=== PATIENT | male | born 1960 | race Caucasian/White ===

== ENCOUNTER 2017-10-27 17:28 | Inpatient (IN) | payer MEDICARE, MEDICAID, SELFPAY ==
[2017-10-27] VITALS (34 sets, daily range): BP systolic 113–203; BP diastolic 53–154; PULSE 94–114; RESP 20–38; TEMP 38.6–39.7; O2SAT 93–98
--- NOTE | 2017-10-27 17:37 | DI.RAD_ITS ---
SYMPTOM/DIAGNOSIS: FEVER AND COUGH PORTABLE AP CHEST: 10/27/17 1755 HOURS The heart is enlarged. There is some prominence of pulmonary interstitial markings which is nonspecific. The findings are less prominent than on previous chest film of 05/23/2016. The findings could represent interstitial pneumonia vs mild CHF. Appropriate follow up PA and lateral chest suggested.
[2017-10-27] MEDS: Normal Saline 500 ML IV (17:50)
--- NOTE | 2017-10-27 18:05 | W.ED.GENAD ---
Discharge Plan Discharge Details Chief Complaint: Cellulitis Clinical Impression: Sepsis Primary Care Provider: Anne Horowitz ED Provider: Hemanth Olivia Disposition Patient Disposition: [facility] INPATIENT Home Meds and New Rx's Prescriptions: No Action risperidone [Risperdal] 3 MG tablet 3 mg PO HS Qty: 90 RF: 3 levothyroxine 50 MCG tablet 50 mcg PO DAILY Qty: 90 RF: 3 folic acid 1 MG tablet 1 mg PO DAILY Qty: 90 RF: 3 omeprazole 20 MG capsule,delayed release(DR/EC) 20 mg PO DAILY Qty: 90 RF: 3 lancets [FreeStyle Lancets] 1 EACH misc 1 ea Miscellaneous RF: 0 furosemide 40 MG tablet 40 mg PO QAM Qty: 7 RF: 0 blood sugar diagnostic [FreeStyle Lite Strips] 1 EACH strip 1 ea Miscellaneous TID Qty: 100 RF: 11 omega-3 acid ethyl esters [Lovaza] 1 GM capsule 1 gm PO BID Qty: 180 RF: 3 cyanocobalamin (vitamin B-12) [Vitamin B-12] 1,000 MCG tablet extended release 1,000 mcg PO DAILY Qty: 90 RF: 0 adalimumab [Humira Pen Psoriasis-Uveitis] 40 MG/0.8 ML pen injector kit 40 mg SQ Q 2 Weeks Qty: 2 RF: 11 pen needle, diabetic [Pen Needle] 1 EACH needle 1 ea Miscellaneous DAILY Qty: 100 RF: 5 ergocalciferol (vitamin D2) [Drisdol] 50,000 UNIT capsule 50,000 units PO DIRECTED RF: 0 multivitamin with minerals 1 EACH tablet 1 ea PO DAILY RF: 0 oxycodone-acetaminophen 1 EACH tablet 1 - 2 ea PO Q4H PRN Qty: 50 RF: 0 fentanyl [Duragesic] 1 EACH patch 72 hour 1 ea Transdermal Q72H Qty: 10 RF: 0 prednisone 5 MG tablet 20 mg PO DAILY Qty: 30 RF: 0 liraglutide [Victoza 3-Saleem] 0.6 MG/0.1 ML pen injector 1.8 mg Sub-Q DAILY RF: 0 lisinopril 5 MG tablet 20 mg PO DAILY RF: 0 acetaminophen 500 MG tablet 1,000 mg PO BID RF: 0 gabapentin 800 MG tablet 800 mg PO TID RF: 0 sertraline 50 MG tablet 50 mg PO 2000 RF: 0 thymol-chlorophyllin [Chlorophyll] 1 EACH tablet 3 mg PO TID RF: 0 carboxymethylcellulose-glycern [Refresh Optive] 15 ML drops 1 drp Ophthalmic BID RF: 0 kwpu-kndebo-fuhhnhlr-D3-C-Mn [Mognbjieoph-Ccpfaf-O9 (C-elton)] 1 EACH capsule 1 tab PO TID RF: 0 naproxen sodium 220 MG capsule 440 mg PO BID RF: 0 insulin glargine [Lantus Solostar U-100 Insulin] 300 UNITS/3 ML insulin pen 80 units Sub-Q BID RF: 0 oxybutynin chloride [Ditropan XL] 15 MG tablet extended release 24hr 15 mg PO DAILY RF: 0 insulin aspart U-100 [Novolog U-100 Insulin aspart] 100 UNITS/ML solution 25 - 50 units Sub-Q AC RF: 0 potassium chloride [Klor-Con M10] 10 MEQ tablet,ER particles/crystals 20 meq PO DAILY RF: 0 venlafaxine 75 MG capsule,extended release 24hr 75 mg PO DAILY RF: 0 amoxicillin-pot clavulanate 1 TAB tablet 1 tab PO BID Qty: 15 RF: 0 acetaminophen 325 MG tablet 650 mg PO Q4H PRNRF: 0 hydroxyzine HCl 50 MG tablet 50 mg PO QID PRNRF: 0 oxycodone 10 MG tablet 10 mg PO Q4H RF: 0 dextran 70-hypromellose [Natural Balance Tears] 15 ML drops 1 drp OU TID PRNRF: 0 amlodipine 5 MG tablet 5 mg PO DAILY RF: 0 nortriptyline 25 MG capsule 25 mg PO HS RF: 0 potassium chloride 10 mEq Capsule, Extended Release 2 cap PO DAILY RF: 0 carbamazepine [Tegretol] 200 mg Tablet 100 mg PO BID RF: 0 metoprolol succinate 25 mg Tablet Extended Release 24 Hr 25 mg PO DAILY RF: 0 melatonin 10 mg Capsule 10 mg PO .QHS RF: 0 Medical Decision Making [facility] Narrative Medical decision making narrative: 57 yo male who is a resident at the [facility] with multiple medical problems comes in with chief complaint of chills and fever starting today. HE has also noted a cough, denies headachen, neck stiffness, abdominal pain. Does have redness and erythema of both lower extremities but he thinks those are unchanged. He has diminished breath sounds bilaterally. Given his fever here will send lab work and cultures and obtain UA and chest xray and monitor pt remains stable, feel slightly better in terms of his chills. Xray on my read shows mild diffuse interistal pneumonitis, awaiting lab work PT remains stable with mild tachycardia at 110. WBC of 25 and mild elevation in lactate of 2.3. His UA has bacteria, given his cough will cover for uti and possible pna with zosyn, and admit to hospitalist. SPoke with Dr. Rodriguez who accepts the pt, asks fluids to be running as well so this ordered. Differential Diagnosis pna, uti, sepsis Imaging Data Radiologic Study: Attestation: I personally reviewed and interpreted this imaging study as follows: Imaging: X-Ray Radiologist's impression: vrad report reviewed Lab Data Lab results reviewed: Yes I reviewed the patient's lab results. ECG Data Attestation: I personally reviewed and interpreted this ECG (s) as follows: Prior ECG tracings: available for review Interpretation: left axis, atrial fibrillation, no acute ischemic st t wave changes HPI - General Adult General Mode of arrival: EMS. Date/Time Provider Initiated Documentation: 10/27/17 17:31. Limitations to Documentation: no limitations. Information obtained by: patient. History of Present Illness 57 year old M presents to the emergency department with the chief complaint of chills, described as moderate, with intensity rated at 4. Patient reports no radiation. Patient started experiencing this hour(s) (12) and it has been constant. No relieving factors improve symptom(s), No exacerbating factors reported . Patient notes cough. Patient did receive the following treatments prior to arrival, none Related Data Home Medications Medication Instructions Recorded Confirmed lancets [FreeStyle Lancets] ea 05/01/12 06/21/13 ergocalciferol (vitamin D2) 50,000 units PO DIRECTED NS 04/21/14 10/27/17 [Drisdol] multivitamin with minerals 1 ea PO DAILY 04/21/14 10/27/17 acetaminophen 1,000 mg PO BID 10/19/15 10/27/17 carboxymethylcellulose-glycern 1 drp OPHTHALMIC BID 10/19/15 10/27/17 [Refresh Optive] gabapentin 800 mg PO TID 10/19/15 10/27/17 fhgs-woxlok-twedpugl-D3-C-Mn 1 tab PO TID 10/19/15 10/27/17 [Ymcscdbssgv-Rabxeh-K8 (C-elton)] insulin glargine [Lantus Solostar 80 units SUB-Q BID 10/19/15 10/27/17 U-100 Insulin] liraglutide [Victoza 3-Saleem] 1.8 mg SUB-Q DAILY 10/19/15 10/27/17 lisinopril 20 mg PO DAILY 10/19/15 10/27/17 naproxen sodium 440 mg PO BID 10/19/15 10/27/17 sertraline 50 mg PO 2000 10/19/15 10/27/17 thymol-chlorophyllin [Chlorophyll] 3 mg PO TID 10/19/15 10/27/17 insulin aspart U-100 [Novolog 25 - 50 units SUB-Q AC 10/20/15 10/27/17 U-100 Insulin aspart] oxybutynin chloride [Ditropan XL] 15 mg PO DAILY 10/20/15 10/27/17 venlafaxine 75 mg PO DAILY 01/08/16 10/27/17 acetaminophen 650 mg PO Q4H PRN 07/08/17 10/27/17 amlodipine 5 mg PO DAILY 07/08/17 10/27/17 dextran 70-hypromellose [Natural 1 drp OU TID PRN 07/08/17 10/27/17 Balance Tears] hydroxyzine HCl 50 mg PO QID PRN 07/08/17 10/27/17 nortriptyline 25 mg PO HS 07/08/17 10/27/17 oxycodone 10 mg PO Q4H 07/08/17 10/27/17 carbamazepine [Tegretol] 100 mg PO BID 10/27/17 10/27/17 melatonin 10 mg PO .QHS 10/27/17 10/27/17 metoprolol succinate 25 mg PO DAILY 10/27/17 10/27/17 potassium chloride 2 cap PO DAILY 10/27/17 10/27/17 Previous Rx's Medication Instructions Recorded prednisone 20 mg PO DAILY #30 tab 06/24/13 potassium chloride [Klor-Con M10] 20 meq PO DAILY tabcr 10/26/15 amoxicillin-pot clavulanate 1 tab PO BID #15 tab 05/26/16 Allergies Allergy/AdvReac Type Severity Reaction Status Date / Time No Known Allergies Allergy Unverified 07/08/17 09:14 General Stated Complaint: GenMedical YVES: 2 Review of Systems Review of Systems All systems reviewed & are unremarkable except as noted in HPI and below Constitutional Reports chills, Reports fever(s) and Reports weakness Eyes Patient Denies loss of vision ENT Denies change in voice Cardiovascular Denies chest pain and Denies dyspnea Respiratory Denies dyspnea Gastrointestinal Denies abdominal pain, Denies nausea and Denies vomiting Genitourinary Denies dysuria Musculoskeletal Denies joint swelling Integumentary/Breasts Denies rash Neurologic Denies loss of vision and Reports weakness Psychiatric Denies depression Endocrine Denies cold intolerance and Denies heat intolerance Allergic/Immunologic Reports urticaria PFSH Medical History Bipolar 1 disorder CAD (coronary artery disease) Chronic anxiety Chronic pain 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 Dyslipidemia Hypertension Social History Smoking/Tobacco Use Status: Never Surgical History Arthroplasty of knee (03/18/12) Fracture, Open Treatment Exam Const General: no acute distress Orientation: alert HENAK Head: normal to inspection Ears: external ears normal General nose exam: external nose normal Mouth: moist mucous membranes Eyes General: appearance normal, both eyes and all related structures Neck Neck: normal visual inspection Resp Effort & Inspection: normal respiratory effort and able to speak in complete sentences Cardio Rate: regular rate Skin General skin exam: no rashes or lesions noted Neuro General: alert and oriented x3 Extrem General: normal to inspection Psych Mental Status: mental status grossly normal Course Vital Signs Temperature 38.6 C H 10/27/17 17:28 Pulse 110 H 10/27/17 17:28 Respiratory Rate 32 H 10/27/17 17:28 Pulse Oximetry 96 10/27/17 17:28 Temperature 38.6 C H 10/27/17 17:28 Pulse 110 H 10/27/17 17:28 Respiratory Rate 32 H 10/27/17 17:28 Pulse Oximetry 96 10/27/17 17:28
[2017-10-27 18:16] LABS: Bilirubin Negative (Negative); Blood Small (Negative); Clarity Clear; Glucose Negative (Negative); Ketones Negative (Negative); Leukocyte Esterase Trace (Negative); Nitrite Negative (Negative); Urobilinogen 0.2 EU/dL (Up TO 0.2); pH 5.5 (5-8)
[2017-10-27 18:27] LABS: Lactate-non-spesis 2.3 mmol/L (0.6-1.4)
[2017-10-27 18:33] LABS: Bacteria Moderate HPF (Negative); C & S Indicated? Yes; Casts 0-2 Coarse Granular LPF (Negative); Crystals Negative HPF (Negative); Epithelial Cells Few HPF (Negative); Mucus Negative (Negative); Other Cells Few Transitional (Negative); WBC 20-50 HPF (0-5)
[2017-10-27 18:34] LABS: Abs Immature Grans 0.08 k/cumm (0.0-0.09); Basophils % 0.2; Eosinophils % 1.1; HGB 9.1 g/dL (13.5-17.5); Immature Grans % 0.3; Lymphocytes % 5.5; Mean Corp. HGB Concentration 29.4 g/dL (32.0-36.0); Mean Corpuscular Hemoglobin 19.7 pg (27.0-33.0); Mean Corpuscular Volume 67.1 fL (80-95); Mean Platelet Volume 10.3 fL (8.0-11.0); Monocytes % 2.7; Neutrophils % 90.2; Platelet Count 560 x1000/uL (130-400); RBC 4.62 m/cumm (4.50-6.00); RBC Distribution Width 18.8 % (11.8-14.1)
[2017-10-27 18:41] LABS: INR 1.1 (1.0-3.5); Prothrombin Time 10.9 sec (9.3-10.8)
[2017-10-27 18:46] LABS: ALT 18 U/L (12-78); AST 14 U/L (15-37); Albumin 2.4 g/dL (3.4-5.0); Alkaline Phosphatase 338 U/L (46-116); Anion Gap 6.2 mmol/L (3-11); BUN 33 mg/dL (7-18); Bilirubin, Total 0.3 mg/dL (0.2-1.0); CO2 26.8 mmol/L (21.0-32.0); CREATININE 1.78 mg/dL (0.70-1.30); Calcium 8.3 mg/dL (8.5-10.1); Chloride 110 mmol/L (98-107); Estimated GFR 39.45 (mL/min/1.73m2); Glucose 102 mg/dL (70-100); Potassium 4.9 mmol/L (3.5-5.1); Sodium 143 mmol/L (136-145); Total Protein 7.3 g/dL (6.4-8.2)
[2017-10-27 18:53] LABS: Absolute Basophil Count 0.05 k/cumm (0.0-0.2); Absolute Eosinophil Count 0.28 k/cumm (0.0-0.7); Absolute Monocyte Count 0.69 k/cumm (0.11-0.7); Absolute Neutrophil Count 22.91 k/cumm (1.2-6.7)
[2017-10-27 19:08] LABS: Diff Comment Agrees w/ Instrument
[2017-10-27 19:09] LABS: Anisocytosis 1+; Basophilic Stippling Present; Hypochromasia 2+
[2017-10-27] MEDS: Normal Saline 1,000 ML 150 ML IV ×2 (19:10→22:31)
[2017-10-27 19:11] LABS: Polychromasia Present
[2017-10-27] MEDS: PIPERACILLIN/TAZO 4.5 GM in Normal Saline 100 ML IVPB (19:11)
[2017-10-27] MEDS: Acetaminophen 500 MG TAB 1000 MG (19:11)
[2017-10-27 19:12] LABS: Poikilocytes 2+
[2017-10-27] MEDS: VANCOMYCIN 2,000 MG in Normal Saline 500 ML 250 MG IVPB (20:14)
[2017-10-27] MEDS: Melatonin 3 MG TAB 9 MG PO (21:59)
[2017-10-27] MEDS: risperiDONE 1 MG TAB 3 MG PO (21:59)
[2017-10-27] MEDS: oxyCODONE 10 MG TAB PO (22:41)
[2017-10-27] MEDS: Acetaminophen 325 MG TAB PO (23:44)
[2017-10-28] VITALS (58 sets, daily range): BP systolic 80–188; BP diastolic 30–94; PULSE 60–90; RESP 12–43; TEMP 36.2–39.4; O2SAT 90–100
[2017-10-28] MEDS: PIPERACILLIN/TAZO 4.5 GM in Normal Saline 100 ML IVPB (02:43)
[2017-10-28] MEDS: Normal Saline 500 ML IV (03:39)
[2017-10-28] MEDS: methylPREDNISolone SUCC 125 MG VIAL 80 MG IVP ×3 (04:22→20:06)
[2017-10-28] MEDS: Normal Saline Flush 10 ML SYR (04:31)
--- NOTE | 2017-10-28 04:37 | HPE_ITS ---
Date of service: 10/28/17 Time of Service: 04:19 Assessment and Plan (1) Cellulitis: Start date: 10/27/17 Current visit: Yes Status: Acute Severe cellulitis of the right leg. He has chronic lower extremity edema. He scratches at both legs regularly as evidenced by the linear scratches on both thighs. I suspect this is the nidus of the infection. Given [facility] a [facility] facility there is a high suspicion for MRSA though a polymicrobial infection is possible. Will continue with broad spectrum antibiotics, Zosyn and vancomycin. Blood cultures are pending. (2) Pedal edema: Current visit: No Status: Chronic Chronic lower extremity edema. Will aim to try to keep his legs elevated as much as possible. This places him at increased risk of infection in his legs. (3) Anxiety: Current visit: No Status: Chronic Chronic anxiety. Will continue present meds including venlafaxine Problem details: On Venlafaxine (4) Diabetes mellitus type 2, controlled: Current visit: No Status: Chronic Monitor blood sugars. Sliding scale insulin. Problem details: *Poorly Controlled a. Diabetic foot ulcers. b. Osteomyelitis in December 2012. c. Diabetic nephropathy with chronic renal insufficiency. (5) Hypertension: Current visit: No Status: Chronic Blood pressures were initially high on presentation but have dropped precipitously. Will hold blood pressure medicines until fully fluid resuscitated (6) Chronic pain: Current visit: No Status: Chronic Will hold on his scheduled oxycodone and fentanyl patch for now. Will provide morphine on an as-needed basis. Problem details: On both Methadone and Fentanyl as well as Ultram and Naproxen. (7) Obesity: Current visit: No Status: Chronic His obesity presents a management issue but thus far he is cooperative and we have been able to move him. He does not currently have active decubital ulceration. Problem details: a. Obesity though he has had significant weight loss since last seen. (8) CAD (coronary artery disease): Current visit: No Status: Chronic Is not complaining of any chest pain. Will check EKG though we do not suspect an acute coronary syndrome at this time. (9) Rheumatoid arthritis: Current visit: No Status: Chronic Holding on his Biologics given his likely bacterial illness. He is steroid dependent and now in crisis. Will give Solu-Medrol IV and resume oral prednisone once stable. (10) Crohns disease: Current visit: No Status: Chronic Ostomy appears to be functioning well, greenish liquid present. Will provide diabetic regular diet as tolerated. Problem details: a. S/P total colectomy. (11) Osteoarthritis of both knees: Current visit: No Status: Chronic He is nearly completely immobile from his arthritis. We will involve physical therapy once stable. Problem details: Severe. a. [id number] bilateral knees. (12) Sacral decubitus ulcer: Current visit: No Status: Acute This appears to be stable. Will try to turn and keep pressure off the decubital area. History of Present Illness Chief Complaint: Sepsis syndrome/right leg cellulitis Narrative: This is a 57-year-old man that resides at the [facility] because of severe disability from arthritis. He was apparently in his normal state of health until a few hours prior to admission when he developed a high fever, chills, rigors. His temp mark to 38.6 pulse was in the 120s blood pressure 170/ 58. He was transported to the emergency room. In the emergency room he appeared to be septic with high fever and white count of 25,000 but his lactate was only 2.3 He got IV fluids and empirically started on Zosyn and vancomycin. He was transferred to the [facility] floor. A few hours later blood pressure dropped from 170/58 to 80/40, respirations were 40. He was transferred to the ICU, Downing catheter placed, started on IV Solu-Medrol, further resuscitation with IV fluids. Review of Systems Review of Systems Patient is partially obtunded but does give some history. He notes he had swelling of both lower extremities but his right leg got worse over the last day or so and was increasingly painful. He does not describe any antecedent cardiac or respiratory illness. Constitutional Reports body ache(s), Reports chills and Reports fever(s) Cardiovascular Denies chest pain Respiratory Denies cough Gastrointestinal Denies abdominal pain Genitourinary Reports difficulty urinating (Tried to urinate in the urinal but was unable) Musculoskeletal Reports myalgias, Reports deformity, Reports arthralgias and Reports limited range of motion Integumentary/Breasts Reports pruritus (Scratching at lower extremities constantly) Psychiatric Reports anxiety Endocrine Comments: Chronic steroid [facility] Medical History Bipolar 1 disorder CAD (coronary artery disease) Chronic anxiety Chronic pain 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 Dyslipidemia Hypertension Social History Smoking/Tobacco Use Status: Never Surgical History Arthroplasty of knee (03/18/12) Fracture, Open Treatment Meds Home Medications Medication Instructions Recorded Confirmed Type folic acid 1 mg PO DAILY #90 tab-cap 05/01/12 10/27/17 Clinic lancets [FreeStyle Lancets] ea 05/01/12 06/21/13 History levothyroxine 50 mcg PO DAILY #90 tab-cap 05/01/12 10/27/17 Clinic omeprazole 20 mg PO DAILY #90 tab-cap 05/01/12 10/27/17 Clinic risperidone [Risperdal] 3 mg PO HS #90 tab-cap 05/01/12 10/27/17 Clinic furosemide 40 mg PO QAM #7 tab-cap 05/14/12 10/27/17 Clinic blood sugar diagnostic [FreeStyle #100 strip 05/29/12 07/08/17 Clinic Lite Strips] omega-3 acid ethyl esters [Lovaza] 1 gm PO BID #180 cap 06/11/12 10/27/17 Clinic cyanocobalamin (vitamin B-12) 1,000 mcg PO DAILY #90 tab 08/07/12 10/27/17 Clinic [Vitamin B-12] adalimumab [Humira Pen 40 mg SQ Q 2 Weeks #2 pen 12/10/12 10/27/17 Clinic Psoriasis-Uveitis] pen needle, diabetic [Pen Needle] #100 ea 06/10/13 05/23/16 Clinic ergocalciferol (vitamin D2) 50,000 units PO DIRECTED NS 04/21/14 10/27/17 History [Drisdol] multivitamin with minerals 1 ea PO DAILY 04/21/14 10/27/17 History acetaminophen 1,000 mg PO BID 10/19/15 10/27/17 History carboxymethylcellulose-glycern 1 drp OPHTHALMIC BID 10/19/15 10/27/17 History [Refresh Optive] gabapentin 800 mg PO TID 10/19/15 10/27/17 History yyhy-sbgpcv-gidopywc-D3-C-Mn 1 tab PO TID 10/19/15 10/27/17 History [Qjtpmtzezri-Myfbvw-H6 (C-elton)] insulin glargine [Lantus Solostar 80 units SUB-Q BID 10/19/15 10/27/17 History U-100 Insulin] liraglutide [Victoza 3-Saleem] 1.8 mg SUB-Q DAILY 10/19/15 10/27/17 History lisinopril 20 mg PO DAILY 10/19/15 10/27/17 History naproxen sodium 440 mg PO BID 10/19/15 10/27/17 History sertraline 50 mg PO 2000 10/19/15 10/27/17 History thymol-chlorophyllin [Chlorophyll] 3 mg PO TID 10/19/15 10/27/17 History insulin aspart U-100 [Novolog 25 - 50 units SUB-Q AC 10/20/15 10/27/17 History U-100 Insulin aspart] oxybutynin chloride [Ditropan XL] 15 mg PO DAILY 10/20/15 10/27/17 History venlafaxine 75 mg PO DAILY 01/08/16 10/27/17 History oxycodone-acetaminophen 1 - 2 ea PO Q4H PRN #50 tab-cap 06/02/17 10/27/17 Clinic acetaminophen 650 mg PO Q4H PRN 07/08/17 10/27/17 History amlodipine 5 mg PO DAILY 07/08/17 10/27/17 History dextran 70-hypromellose [Natural 1 drp OU TID PRN 07/08/17 10/27/17 History Balance Tears] hydroxyzine HCl 50 mg PO QID PRN 07/08/17 10/27/17 History nortriptyline 25 mg PO HS 07/08/17 10/27/17 History oxycodone 10 mg PO Q4H 07/08/17 10/27/17 History fentanyl [Duragesic] 1 ea TRANSDERMAL Q72H #10 script 08/25/17 10/27/17 Clinic carbamazepine [Tegretol] 100 mg PO BID 10/27/17 10/27/17 History melatonin 10 mg PO .QHS 10/27/17 10/27/17 History metoprolol succinate 25 mg PO DAILY 10/27/17 10/27/17 History potassium chloride 2 cap PO DAILY 10/27/17 10/27/17 History Allergies Allergy/AdvReac Type Severity Reaction Status Date / Time No Known Allergies Allergy Unverified 10/27/17 19:17 Exam Narrative Exam Narrative: Brendan appears to be partially obtunded but is arousable and is giving intelligible answers to questions. In particular he wakes right up when you talk to him about a Downing catheter Const General: cooperative, not healthy appearing, anxious, cushingoid and disheveled Nutritional Appearance: obese Orientation: oriented to person [facility] Mouth: abnormal oral mucosae (Mucosa is dry) Teeth and gingiva: abnormal tooth or associated gingiva and caries (With broken and decayed) Neck Neck: anterior neck swelling (Difficult to discern neck features because of swelling/adipose tissue) Chest Chest: normal inspection of the chest Resp Effort & Inspection: abnormal respiratory pattern (Tachypneic with shallow breathing) Auscultation: clear to auscultation bilaterally (Breath sounds are dry) Cardio Rate: regular rate Rhythm: regular rhythm Heart Sounds: S1 abnormal (Distant heart sounds, difficult to discern) GI Inspection: normal to inspection Palpation: soft and nontender Rectal Exam: visual inspection normal Other: The decubital region has thickened tissue that is friable, no ulceration , violaceous discoloring to the entire decubital region Penis: penis abnormal (Nearly buried penis, otherwise anatomically normal) Skin General skin exam: dry skin Lesions: lesion noted (Linear scratches on both thighs) Extrem General: edema (4+ edema both lower extremities at the right leg is more tensely edematous and has severe erythema of the entire leg through the knee) Laterality: bilateral Psych Appearance: disheveled Speech and Movement: delayed speech Mood: anxious mood Attitude: guarded Results Labs : 10/27/17 18:02 10/27/17 18:02 Abnormal lab results 10/27/17 10/27/17 10/27/17 Range/Units 18:02 18:02 18:02 WBC 25.40 H* (4.4-10.8) k/cumm Hgb 9.1 L (13.5-17.5) g/dL Hct 31.0 L (40.0-50.0) % MCV 67.1 L (80-95) fL MCH 19.7 L (27.0-33.0) pg MCHC 29.4 L (32.0-36.0) g/dL RDW 18.8 H (11.8-14.1) % Plt Count 560 H (130-400) x1000/uL Absolute Neutrophils 22.91 H (1.2-6.7) k/cumm PT 10.9 H (9.3-10.8) sec Chloride 110 H (98-107) mmol/L BUN 33 H (7-18) mg/dL Creatinine 1.78 H (0.70-1.30) mg/dL Glucose 102 H (70-100) mg/dL Lactate (0.6-1.4) mmol/L Calcium 8.3 L (8.5-10.1) mg/dL AST 14 L (15-37) U/L Alkaline Phosphatase 338 H (46-116) U/L Albumin 2.4 L (3.4-5.0) g/dL Urine Protein (Negative) mg/dL Urine Blood (Negative) Ur Leukocyte Esterase (Negative) Urine RBC (0-2) 10/27/17 10/27/17 Range/Units 18:02 18:10 WBC (4.4-10.8) k/cumm Hgb (13.5-17.5) g/dL Hct (40.0-50.0) % MCV (80-95) fL MCH (27.0-33.0) pg MCHC (32.0-36.0) g/dL RDW (11.8-14.1) % Plt Count (130-400) x1000/uL Absolute Neutrophils (1.2-6.7) k/cumm PT (9.3-10.8) sec Chloride (98-107) mmol/L BUN (7-18) mg/dL Creatinine (0.70-1.30) mg/dL Glucose (70-100) mg/dL Lactate 2.3 H (0.6-1.4) mmol/L Calcium (8.5-10.1) mg/dL AST (15-37) U/L Alkaline Phosphatase (46-116) U/L Albumin (3.4-5.0) g/dL Urine Protein >=300 H (Negative) mg/dL Urine Blood Small H (Negative) Ur Leukocyte Esterase Trace H (Negative) Urine RBC 10-20 H (0-2) Diabetes panel 10/27/17 Range/Units 18:02 Sodium 143 (136-145) mmol/L Potassium 4.9 (3.5-5.1) mmol/L Chloride 110 H (98-107) mmol/L Carbon Dioxide 26.8 (21.0-32.0) mmol/L BUN 33 H (7-18) mg/dL Creatinine 1.78 H (0.70-1.30) mg/dL Glucose 102 H (70-100) mg/dL Calcium 8.3 L (8.5-10.1) mg/dL AST 14 L (15-37) U/L ALT 18 (12-78) U/L Alkaline Phosphatase 338 H (46-116) U/L Total Protein 7.3 (6.4-8.2) g/dL Albumin 2.4 L (3.4-5.0) g/dL Calcium panel 10/27/17 Range/Units 18:02 Calcium 8.3 L (8.5-10.1) mg/dL Albumin 2.4 L (3.4-5.0) g/dL Pituitary panel 10/27/17 Range/Units 18:02 Sodium 143 (136-145) mmol/L Potassium 4.9 (3.5-5.1) mmol/L Chloride 110 H (98-107) mmol/L Carbon Dioxide 26.8 (21.0-32.0) mmol/L BUN 33 H (7-18) mg/dL Creatinine 1.78 H (0.70-1.30) mg/dL Glucose 102 H (70-100) mg/dL Calcium 8.3 L (8.5-10.1) mg/dL Adrenal panel 10/27/17 Range/Units 18:02 Sodium 143 (136-145) mmol/L Potassium 4.9 (3.5-5.1) mmol/L Chloride 110 H (98-107) mmol/L Carbon Dioxide 26.8 (21.0-32.0) mmol/L BUN 33 H (7-18) mg/dL Creatinine 1.78 H (0.70-1.30) mg/dL Glucose 102 H (70-100) mg/dL Calcium 8.3 L (8.5-10.1) mg/dL Total Bilirubin 0.3 (0.2-1.0) mg/dL AST 14 L (15-37) U/L ALT 18 (12-78) U/L Alkaline Phosphatase 338 H (46-116) U/L Total Protein 7.3 (6.4-8.2) g/dL Albumin 2.4 L (3.4-5.0) g/dL Laboratory Tests 10/27/17 10/27/17 10/27/17 18:02 18:02 18:02 WBC 25.40 H* RBC 4.62 Hgb 9.1 L Hct 31.0 L MCV 67.1 L MCH 19.7 L MCHC 29.4 L RDW 18.8 H Plt Count 560 H MPV 10.3 Immature Gran % 0.3 Neutrophils % 90.2 Lymphocytes % 5.5 Monocytes % 2.7 Eosinophils % 1.1 Basophils % 0.2 Absolute Neutrophils 22.91 H Absolute Lymphocytes 1.40 Absolute Monocytes 0.69 Absolute Eosinophils 0.28 Absolute Basophils 0.05 Differential Comment Agrees w/ instrument RBC Morphology See below Polychromasia Present Hypochromasia 2+ Poikilocytosis 2+ Basophilic Stippling Present Anisocytosis 1+ PT 10.9 H INR 1.1 Sodium 143 Potassium 4.9 Chloride 110 H Carbon Dioxide 26.8 Anion Gap 6.2 BUN 33 H Creatinine 1.78 H Estimated GFR/1.73 m2 39.45 Glucose 102 H Lactate Calcium 8.3 L Total Bilirubin 0.3 AST 14 L ALT 18 Alkaline Phosphatase 338 H Total Protein 7.3 Albumin 2.4 L Urine Color Urine Clarity Urine pH Ur Specific [place] Urine Protein Urine Ketones Urine Blood Urine Nitrite Urine Bilirubin Urine Urobilinogen Ur Leukocyte Esterase Urine RBC Urine WBC Ur Epithelial Cells Urine Crystals Urine Bacteria Urine Casts Urine Mucus Urine Other Ur Culture Indicated? Urine Glucose 10/27/17 10/27/17 18:02 18:10 WBC RBC Hgb Hct MCV MCH MCHC RDW Plt Count MPV Immature Gran % Neutrophils % Lymphocytes % Monocytes % Eosinophils % Basophils % Absolute Neutrophils Absolute Lymphocytes Absolute Monocytes Absolute Eosinophils Absolute Basophils Differential Comment RBC Morphology Polychromasia Hypochromasia Poikilocytosis Basophilic Stippling Anisocytosis PT INR Sodium Potassium Chloride Carbon Dioxide Anion Gap BUN Creatinine Estimated GFR/1.73 m2 Glucose Lactate 2.3 H Calcium Total Bilirubin AST ALT Alkaline Phosphatase Total Protein Albumin Urine Color Yellow Urine Clarity Clear Urine pH 5.5 Ur Specific [place] 1.020 Urine Protein >=300 H Urine Ketones Negative Urine Blood Small H Urine Nitrite Negative Urine Bilirubin Negative Urine Urobilinogen 0.2 Ur Leukocyte Esterase Trace H Urine RBC 10-20 H Urine WBC 20-50 Ur Epithelial Cells Few Urine Crystals Negative Urine Bacteria Moderate Urine Casts 0-2 coarse granular Urine Mucus Negative Urine Other Few transitional Ur Culture Indicated? Yes Urine Glucose Negative
[2017-10-28] MEDS: Normal Saline 1,000 ML 150 ML IV ×3 (04:56→19:22)
[2017-10-28] MEDS: Acetaminophen 325 MG TAB PO ×2 (05:33→23:34)
[2017-10-28 06:59] LABS: Abs Immature Grans 0.13 k/cumm (0.0-0.09); HCT 26.8 % (40.0-50.0); HGB 7.9 g/dL (13.5-17.5); Mean Corp. HGB Concentration 29.5 g/dL (32.0-36.0); Mean Corpuscular Volume 67.8 fL (80-95); Mean Platelet Volume 9.7 fL (8.0-11.0); RBC 3.95 m/cumm (4.50-6.00); RBC Distribution Width 18.5 % (11.8-14.1)
[2017-10-28 07:20] LABS: ALT 16 U/L (12-78); AST 18 U/L (15-37); Albumin 1.9 g/dL (3.4-5.0); Alkaline Phosphatase 313 U/L (46-116); Anion Gap 5.5 mmol/L (3-11); BUN 39 mg/dL (7-18); Bilirubin, Total 0.7 mg/dL (0.2-1.0); CO2 23.5 mmol/L (21.0-32.0); CREATININE 2.93 mg/dL (0.70-1.30); Calcium 7.4 mg/dL (8.5-10.1); Chloride 112 mmol/L (98-107); Glucose 102 mg/dL (70-100); Potassium 5.1 mmol/L (3.5-5.1); Sodium 141 mmol/L (136-145); Total Protein 5.9 g/dL (6.4-8.2)
[2017-10-28 07:35] LABS: White Blood Cell Count 31.63 k/cumm (4.4-10.8)
[2017-10-28 07:36] LABS: Absolute Eosinophil Count 0.32 k/cumm (0.0-0.7); Absolute Lymphocyte Count 0.32 k/cumm (1.2-3.4); Absolute Monocyte Count 0.95 k/cumm (0.11-0.7); Absolute Neutrophil Count 29.73 k/cumm (1.2-6.7); Diff Comment Manual Differential
[2017-10-28 07:37] LABS: Anisocytosis 2+; Basophilic Stippling Present; Hypochromasia 2+; Microcytosis 2+; Polychromasia Present
[2017-10-28 07:38] LABS: Ovalocytes 2+; Poikilocytes 2+
[2017-10-28 07:39] LABS: Platelet Count 412 x1000/uL (130-400)
--- NOTE | 2017-10-28 07:52 | PDOC.CMIN ---
- If Service Date Differs Date of service: 10/28/17 Time of Service: 07:52 Care Management Initial Assess REASON FOR HOSPITALIZATION:: Sepsis PAST MEDICAL HISTORY/PAST SURGICAL HISTORY:: Bipolar, anxiety, arthrititis, DM, HTN, CAD. Surgical hx: arthroplasty, ORIF distal humerus fracture PREVIOUS FUNCTIONAL STATUS/SOCIAL/FAMILY SUPPORTS:: Patient is a 57 year old male who resides at the [facility] in [place]. Requires assistance with all of his ADLs and uses a walker for ambulation. Patient has one sister, Lian who lives in [facility] and they have limited contact. They connect via phone every couple of weeks. Patient enjoys reading and watching TV. CURRENT FUNCTIONAL STATUS:: Brendan is lying in bed in the ICU. He awakes briefly when CM attempts to engage him in conversation, however he is not able to stay alert. CM followed up with primary nurse Brendan has been febrile this morning. CM did contacted the [facility] and spoke with Meg provided update and reviewed events leading to admission. Per Meg patient was esculated on Friday with change in behaviors which led to Pt being assessed for suicidal ideation at the [facility]. Per report Pt monitored over the weekend and did not voice any other thoughts related to SI. He was then transported to [facility] Friday for febrile illness and concerns for sepsis. ADVANCE DIRECTIVES:: [facility] on file Has patient been provided with information about the portal?: No Did the patient sign up for the portal?: No CODE STATUS:: Full Code INSURANCE COVERAGE / FINANCIAL ISSUES:: Medicaid, Medicare CURRENT HOME/COMMUNITY SERVICES/EQUIPMENT:: Brendan is a resident of the [facility] and needs assistance with ADL's and ostomy care. PRIMARY CARE PHYSICIAN:: Dr.Joyce Horowitz POTENTIAL DISCHARGE NEEDS:: Brendan will return to the [facility] when medically ready and follow up with as directed. PATIENT/FAMILY EDUCATION NEEDS:: Discharge education, limitations and follow up plan of care. ANTICIPATED BARRIERS TO DISCHARGE:: None identified. TRANSPORTATION:: Plan to transfer via wheelchair van when medically ready. PLAN:: Brendan is currently being treated in the ICU for sepsis he is receiving IV antibiotics. He will return to the [facility] when medically ready. Marci from the [facility] will bring a bed hold form to have the patient sign when he is able. CM to continue to provide support patient, and care team ongoing discharge planning and disposition. Readmission - Within the Past 30 Days Yes or No: N
--- NOTE | 2017-10-28 07:56 | INITIAL_ITS ---
- If Service Date Differs Date of service: 10/28/17 Time of Service: 07:52 Care Management Initial Assess REASON FOR HOSPITALIZATION:: Sepsis PAST MEDICAL HISTORY/PAST SURGICAL HISTORY:: Bipolar, anxiety, arthrititis, DM, HTN, CAD. Surgical hx: arthroplasty, ORIF distal humerus fracture PREVIOUS FUNCTIONAL STATUS/SOCIAL/FAMILY SUPPORTS:: Patient is a 57 year old male who resides at the [facility] facility in [place]. Requires assistance with all of his ADLs and uses a walker for ambulation. Patient has one sister, Lian who lives in [facility] and they have limited contact. They connect via phone every couple of weeks. Patient enjoys reading and watching TV. CURRENT FUNCTIONAL STATUS:: Brendan is lying in bed in the ICU. He awakes briefly when CM attempts to engage him in conversation, however he is not able to stay alert. CM followed up with primary nurse Brendan has been febrile this morning. CM did contacted the [facility] and spoke with Mge provided update and reviewed events leading to admission. Per Meg patient was esculated on Friday with change in behaviors which led to Pt being assessed for suicidal ideation at the [facility]. Per report Pt monitored over the weekend and did not voice any other thoughts related to SI. He was then transported to [facility] Friday for febrile illness and concerns for sepsis. ADVANCE DIRECTIVES:: COLST on file Has patient been provided with information about the portal?: No Did the patient sign up for the portal?: No CODE STATUS:: Full Code INSURANCE COVERAGE / FINANCIAL ISSUES:: Medicaid, Medicare CURRENT HOME/COMMUNITY SERVICES/EQUIPMENT:: Brendan is a resident of the [facility] and needs assistance with ADL's and ostomy care. PRIMARY CARE PHYSICIAN:: Dr.Joyce Horowitz POTENTIAL DISCHARGE NEEDS:: Brendan will return to the [facility] when medically ready and follow up with as directed. PATIENT/FAMILY EDUCATION NEEDS:: Discharge education, limitations and follow up plan of care. ANTICIPATED BARRIERS TO DISCHARGE:: None identified. TRANSPORTATION:: Plan to transfer via wheelchair van when medically ready. PLAN:: Brendan is currently being treated in the ICU for sepsis he is receiving IV antibiotics. He will return to the [facility] when medically ready. Marci from the [facility] will bring a bed hold form to have the patient sign when he is able. CM to continue to provide support patient, and care team ongoing discharge planning and disposition. Readmission - Within the Past 30 Days Yes or No: N
[2017-10-28 08:44] LABS: Hemoglobin A1C 6.2 % (4.5-6.2)
[2017-10-28 08:50] LABS: NT-proBNP 4180 pg/mL
[2017-10-28 09:54] LABS: Lactate-non-spesis 0.9 mmol/L (0.6-1.4)
--- NOTE | 2017-10-28 10:05 | PT.INNT ---
PT Notes PHYSICAL THERAPY NOTE 10/28/17 PT Consult received, chart reviewed. Attempted to see patient for PT evaluation, RN requested hold this am due to patient sleeping. Will continue attempts. Yolanda Chang PT
[2017-10-28] MEDS: Insulin Glargine 300 UNITS/3 ML PEN 80 UNITS SC ×3 (10:58→20:28)
--- NOTE | 2017-10-28 11:28 | PGE_ITS ---
Assessment and Plan (1) Cellulitis: Current visit: Yes Status: Acute (2) Pedal edema: Current visit: No Status: Chronic (3) Anxiety: Current visit: No Status: Chronic Problem details: On Venlafaxine (4) Diabetes mellitus type 2, controlled: Current visit: No Status: Chronic Problem details: *Poorly Controlled a. Diabetic foot ulcers. b. Osteomyelitis in December 2012. c. Diabetic nephropathy with chronic renal insufficiency. (5) Hypertension: Current visit: No Status: Chronic (6) Chronic pain: Current visit: No Status: Chronic Problem details: On both Methadone and Fentanyl as well as Ultram and Naproxen. (7) Obesity: Current visit: No Status: Chronic Problem details: a. Obesity though he has had significant weight loss since last seen. (8) CAD (coronary artery disease): Current visit: No Status: Chronic (9) Rheumatoid arthritis: Current visit: No Status: Chronic (10) Crohns disease: Current visit: No Status: Chronic Problem details: a. S/P total colectomy. (11) Osteoarthritis of both knees: Current visit: No Status: Chronic Problem details: Severe. a. [id number] bilateral knees. (12) Sacral decubitus ulcer: Current visit: No Status: Acute Objective Objective Clinical Data: Abnormal lab results 10/27/17 10/27/17 10/27/17 Range/Units 18:02 18:02 18:02 WBC 25.40 H* (4.4-10.8) k/cumm RBC (4.50-6.00) m/cumm Hgb 9.1 L (13.5-17.5) g/dL Hct 31.0 L (40.0-50.0) % MCV 67.1 L (80-95) fL MCH 19.7 L (27.0-33.0) pg MCHC 29.4 L (32.0-36.0) g/dL RDW 18.8 H (11.8-14.1) % Plt Count 560 H (130-400) x1000/uL Absolute Neutrophils 22.91 H (1.2-6.7) k/cumm Absolute Lymphocytes (1.2-3.4) k/cumm Absolute Monocytes (0.11-0.7) k/cumm PT 10.9 H (9.3-10.8) sec Chloride 110 H (98-107) mmol/L BUN 33 H (7-18) mg/dL Creatinine 1.78 H (0.70-1.30) mg/dL Glucose 102 H (70-100) mg/dL Lactate (0.6-1.4) mmol/L Calcium 8.3 L (8.5-10.1) mg/dL AST 14 L (15-37) U/L Alkaline Phosphatase 338 H (46-116) U/L NT-Pro-B Natriuret Pep ( - 299) pg/mL Total Protein (6.4-8.2) g/dL Albumin 2.4 L (3.4-5.0) g/dL Urine Protein (Negative) mg/dL Urine Blood (Negative) Ur Leukocyte Esterase (Negative) Urine RBC (0-2) 10/27/17 10/27/17 10/28/17 Range/Units 18:02 18:10 06:30 WBC (4.4-10.8) k/cumm RBC (4.50-6.00) m/cumm Hgb (13.5-17.5) g/dL Hct (40.0-50.0) % MCV (80-95) fL MCH (27.0-33.0) pg MCHC (32.0-36.0) g/dL RDW (11.8-14.1) % Plt Count (130-400) x1000/uL Absolute Neutrophils (1.2-6.7) k/cumm Absolute Lymphocytes (1.2-3.4) k/cumm Absolute Monocytes (0.11-0.7) k/cumm PT (9.3-10.8) sec Chloride 112 H (98-107) mmol/L BUN 39 H (7-18) mg/dL Creatinine 2.93 H D (0.70-1.30) mg/dL Glucose 102 H (70-100) mg/dL Lactate 2.3 H (0.6-1.4) mmol/L Calcium 7.4 L (8.5-10.1) mg/dL AST (15-37) U/L Alkaline Phosphatase 313 H (46-116) U/L NT-Pro-B Natriuret Pep ( - 299) pg/mL Total Protein 5.9 L (6.4-8.2) g/dL Albumin 1.9 L (3.4-5.0) g/dL Urine Protein >=300 H (Negative) mg/dL Urine Blood Small H (Negative) Ur Leukocyte Esterase Trace H (Negative) Urine RBC 10-20 H (0-2) 10/28/17 10/28/17 Range/Units 06:30 06:30 WBC 31.63 H* (4.4-10.8) k/cumm RBC 3.95 L (4.50-6.00) m/cumm Hgb 7.9 L (13.5-17.5) g/dL Hct 26.8 L (40.0-50.0) % MCV 67.8 L (80-95) fL MCH 20.0 L (27.0-33.0) pg MCHC 29.5 L (32.0-36.0) g/dL RDW 18.5 H (11.8-14.1) % Plt Count 412 H (130-400) x1000/uL Absolute Neutrophils 29.73 H (1.2-6.7) k/cumm Absolute Lymphocytes 0.32 L (1.2-3.4) k/cumm Absolute Monocytes 0.95 H (0.11-0.7) k/cumm PT (9.3-10.8) sec Chloride (98-107) mmol/L BUN (7-18) mg/dL Creatinine (0.70-1.30) mg/dL Glucose (70-100) mg/dL Lactate (0.6-1.4) mmol/L Calcium (8.5-10.1) mg/dL AST (15-37) U/L Alkaline Phosphatase (46-116) U/L NT-Pro-B Natriuret Pep 4180 H ( - 299) pg/mL Total Protein (6.4-8.2) g/dL Albumin (3.4-5.0) g/dL Urine Protein (Negative) mg/dL Urine Blood (Negative) Ur Leukocyte Esterase (Negative) Urine RBC (0-2) Vital Signs Temp 36.5 C 10/28/17 11:25 Pulse 77 10/28/17 06:17 Resp 18 10/28/17 06:17 BP 94/48 L 10/28/17 06:17 Pulse Ox 95 09/04/18 03:40 Intake & Output 10/27/17 10/27/17 10/28/17 11:59 23:59 11:59 Intake Total 1775.0 / 1775.0 1975.5 / 1975.5 Output Total 950 / 950 250 / 250 Balance 825.0 / 825.0 1725.5 / 1725.5 Weight 141.4 kg 134.7 kg Intake: IV 1775.0 / 1775.0 1875.5 / 1875.5 Oral 100 / 100 Output: Urine 250 / 250 Stool 950 / 950 Other: Urine Color Yellow Urine Appearance Clear Laboratory Results WBC 31.63 k/cumm (4.4-10.8) H* 10/28/17 06:30 RBC 3.95 m/cumm (4.50-6.00) L 10/28/17 06:30 Hgb 7.9 g/dL (13.5-17.5) L 10/28/17 06:30 Hct 26.8 % (40.0-50.0) L 10/28/17 06:30 MCV 67.8 fL (80-95) L 10/28/17 06:30 MCH 20.0 pg (27.0-33.0) L 10/28/17 06:30 MCHC 29.5 g/dL (32.0-36.0) L 10/28/17 06:30 RDW 18.5 % (11.8-14.1) H 10/28/17 06:30 Plt Count 412 x1000/uL (130-400) H 10/28/17 06:30 MPV 9.7 fL (8.0-11.0) 10/28/17 06:30 Immature Gran % See Differential 10/28/17 06:30 Neutrophils % 73.0 10/28/17 06:30 Lymphocytes % 1.0 10/28/17 06:30 Monocytes % 3.0 10/28/17 06:30 Eosinophils % 1.0 10/28/17 06:30 Basophils % 0.0 10/28/17 06:30 Absolute Neutrophils 29.73 k/cumm (1.2-6.7) H 10/28/17 06:30 Band Neutrophils 21.0 % 10/28/17 06:30 Absolute Lymphocytes 0.32 k/cumm (1.2-3.4) L 10/28/17 06:30 Absolute Monocytes 0.95 k/cumm (0.11-0.7) H 10/28/17 06:30 Absolute Eosinophils 0.32 k/cumm (0.0-0.7) 10/28/17 06:30 Absolute Basophils 0.00 k/cumm (0.0-0.2) 10/28/17 06:30 Metamyelocytes 1.0 % 10/28/17 06:30 Differential Comment Manual differential 10/28/17 06:30 RBC Morphology See below 10/28/17 06:30 Polychromasia Present 10/28/17 06:30 Hypochromasia 2+ 10/28/17 06:30 Poikilocytosis 2+ 10/28/17 06:30 Basophilic Stippling Present 10/28/17 06:30 Anisocytosis 2+ 10/28/17 06:30 Microcytosis 2+ 10/28/17 06:30 Ovalocytes 2+ 10/28/17 06:30 PT 10.9 sec (9.3-10.8) H 10/27/17 18:02 INR 1.1 (1.0-3.5) 10/27/17 18:02 Sodium 141 mmol/L (136-145) 10/28/17 06:30 Potassium 5.1 mmol/L (3.5-5.1) 10/28/17 06:30 Chloride 112 mmol/L (98-107) H 10/28/17 06:30 Carbon Dioxide 23.5 mmol/L (21.0-32.0) 10/28/17 06:30 Anion Gap 5.5 mmol/L (3-11) 10/28/17 06:30 BUN 39 mg/dL (7-18) H 10/28/17 06:30 Creatinine 2.93 mg/dL (0.70-1.30) H D 10/28/17 06:30 Estimated GFR/1.73 m2 22.20 (mL/min/1.73m2) 10/28/17 06:30 Glucose 102 mg/dL (70-100) H 10/28/17 06:30 Hemoglobin A1c 6.2 % (4.5-6.2) 10/28/17 06:30 Lactate 0.9 mmol/L (0.6-1.4) 10/28/17 09:48 Calcium 7.4 mg/dL (8.5-10.1) L 10/28/17 06:30 Total Bilirubin 0.7 mg/dL (0.2-1.0) 10/28/17 06:30 AST 18 U/L (15-37) 10/28/17 06:30 ALT 16 U/L (12-78) 10/28/17 06:30 Alkaline Phosphatase 313 U/L (46-116) H 10/28/17 06:30 NT-Pro-B Natriuret Pep 4180 pg/mL (-299) H 10/28/17 06:30 Total Protein 5.9 g/dL (6.4-8.2) L 10/28/17 06:30 Albumin 1.9 g/dL (3.4-5.0) L 10/28/17 06:30 Urine Color Yellow (Yellow) 10/27/17 18:10 Urine Clarity Clear 10/27/17 18:10 Urine pH 5.5 (5-8) 10/27/17 18:10 Ur Specific [place] 1.020 (1.005-1.025) 10/27/17 18:10 Urine Protein >=300 mg/dL (Negative) H 10/27/17 18:10 Urine Ketones Negative mg/dL (Negative) 10/27/17 18:10 Urine Blood Small (Negative) H 10/27/17 18:10 Urine Nitrite Negative (Negative) 10/27/17 18:10 Urine Bilirubin Negative (Negative) 10/27/17 18:10 Urine Urobilinogen 0.2 EU/dL (Up TO 0.2) 10/27/17 18:10 Ur Leukocyte Esterase Trace (Negative) H 10/27/17 18:10 Urine RBC 10-20 (0-2) H 10/27/17 18:10 Urine WBC 20-50 HPF (0-5) 10/27/17 18:10 Ur Epithelial Cells Few HPF (Negative) 10/27/17 18:10 Urine Crystals Negative HPF (Negative) 10/27/17 18:10 Urine Bacteria Moderate HPF (Negative) 10/27/17 18:10 Urine Casts 0-2 coarse granular LPF (Negative) 10/27/17 18:10 Urine Mucus Negative (Negative) 10/27/17 18:10 Urine Other Few transitional (Negative) 10/27/17 18:10 Ur Culture Indicated? Yes 10/27/17 18:10 Urine Glucose Negative mg/dL (Negative) 10/27/17 18:10 Date of service: 10/28/17 Time of Service: 11:26
[2017-10-28] MEDS: Heparin 5,000 UNITS/ML VIAL 5000 UNITS SC ×2 (12:29→20:09)
[2017-10-28] MEDS: Normal Saline Flush 10 ML SYR IVP ×2 (12:30→13:46)
[2017-10-28] MEDS: Gabapentin 800 MG TAB PO ×2 (13:48→20:00)
--- NOTE | 2017-10-28 14:56 | WOUNDCARE ---
Wound Care Report Consulted for reported stage 3 pressure injury. Upon assessment Pt found to have what appears to be suspected deep tissue injury (sDTI). no open areas that would equate to a stage 3 pressure injury noted upon assessment. Recommend position changes every hour and z-gaurd paste to buttox, coccyx, and groin area. Mr. Corley is a 57 y.o. male who resides at the [facility]. admitted to the ICU for sepsis. Upon assessment Pt noted to have skin which is deep purple in color that starts 4 cm's above coccyx and extends down bilateral buttox to mid bilateral thighs. Pt has a puckered skin section at coccyx w/ small 0.5x0.5 superficial skin loss at tip of puckered area. When Pt turned on side purple color intensified and blood appeared to engorge puckered skin. Several areas of linear, superficial skin loss noted on buttox and thighs, probable source is adverse microclimate and shearing force. Z-gaurd applied to open areas. Pt has large medical Hx, see MD's H&P for details.
--- NOTE | 2017-10-28 15:08 | CHAPLAIN ---
I know Brendan from when he lived independently and used [facility] several years ago. He appeared to be sleeping, but opened his eyes when I said his name. He responded as if he knew who I was, but he may not have. He said things are going okay at the [facility]. He doesn't know anyone else very well there, he said. He is younger than most of the patients, and older than most of the employees, he said. Brendan has an iPad that he uses and he said there is one employee at the [facility] who helps him with his iPad when he has questions about it. The last time I saw Brendan, when he was a patient here, he had been in touch with this nephew, but he said he has not heard from him in a while. I will check in with Brendan tomorrow.
[2017-10-28] MEDS: Insulin Aspart 300 UNITS/3 ML PEN SC (18:50)
[2017-10-28] MEDS: Sertraline 50 MG TAB PO (20:01)
[2017-10-28] MEDS: VANCOMYCIN 1,250 MG in Normal Saline 250 ML 166.667 MG IVPB (20:02)
[2017-10-28] MEDS: carBAMazepine 200 MG TAB 100 MG PO (20:16)
[2017-10-28] MEDS: risperiDONE 1 MG TAB 3 MG PO (22:44)
[2017-10-29] VITALS (26 sets, daily range): BP systolic 127–190; BP diastolic 76–94; PULSE 62–83; RESP 15–25; TEMP 35.6–36.8; O2SAT 96–100
[2017-10-29] MEDS: Normal Saline 1,000 ML 150 ML IV ×3 (03:00→14:56)
[2017-10-29] MEDS: methylPREDNISolone SUCC 125 MG VIAL 80 MG IVP ×3 (05:19→21:13)
[2017-10-29] MEDS: Levothyroxine 50 MCG TAB PO (05:21)
[2017-10-29] MEDS: Heparin 5,000 UNITS/ML VIAL 5000 UNITS SC ×3 (05:24→20:08)
[2017-10-29 07:11] LABS: Abs Immature Grans 0.08 k/cumm (0.0-0.09); Absolute Basophil Count 0.02 k/cumm (0.0-0.2); Absolute Monocyte Count 0.85 k/cumm (0.11-0.7); Basophils % 0.1; HCT 27.2 % (40.0-50.0); HGB 7.9 g/dL (13.5-17.5); Immature Grans % 0.3; Lymphocytes % 3.3; Mean Corpuscular Hemoglobin 19.5 pg (27.0-33.0); Mean Platelet Volume 10.4 fL (8.0-11.0); Monocytes % 3.7; Neutrophils % 92.6; RBC 4.06 m/cumm (4.50-6.00); RBC Distribution Width 18.6 % (11.8-14.1); White Blood Cell Count 22.99 k/cumm (4.4-10.8)
[2017-10-29 07:20] LABS: Absolute Lymphocyte Count 0.76 k/cumm (1.2-3.4); Absolute Neutrophil Count 21.29 k/cumm (1.2-6.7)
[2017-10-29 07:50] LABS: Anisocytosis 3+; Hypochromasia 2+; Microcytosis 3+; Ovalocytes 2+; Platelet Count 398 x1000/uL (130-400)
[2017-10-29 07:51] LABS: Poikilocytes 2+; Polychromasia Present
[2017-10-29 07:54] LABS: ALT 17 U/L (12-78); AST 14 U/L (15-37); Albumin 1.9 g/dL (3.4-5.0); Alkaline Phosphatase 248 U/L (46-116); Anion Gap 7.1 mmol/L (3-11); BUN 52 mg/dL (7-18); Bilirubin, Total 0.2 mg/dL (0.2-1.0); CO2 20.9 mmol/L (21.0-32.0); CREATININE 2.96 mg/dL (0.70-1.30); Calcium 7.7 mg/dL (8.5-10.1); Chloride 108 mmol/L (98-107); Estimated GFR 21.94 (mL/min/1.73m2); Ferritin 124 ng/mL (8-388); Folate 14.1 ng/mL (8.6-20.0); Glucose 351 mg/dL (70-100); Iron 8 ug/dL (50-175); Sodium 136 mmol/L (136-145); Total Iron Binding Capacity 245 ug/dL (250-450); Total Protein 6.6 g/dL (6.4-8.2); Transferrin Sat 3 % (20-55); Vitamin B12 912 pg/mL (193-986)
[2017-10-29 07:57] LABS: Potassium 6.1 mmol/L (3.5-5.1)
[2017-10-29] MEDS: carBAMazepine 200 MG TAB 100 MG PO ×2 (09:32→20:04)
[2017-10-29] MEDS: Gabapentin 800 MG TAB PO ×3 (09:34→20:05)
[2017-10-29] MEDS: Venlafaxine 37.5 MG CAPCR 75 MG PO (09:35)
[2017-10-29] MEDS: Omeprazole 20 MG CAPCR PO (09:35)
[2017-10-29] MEDS: Insulin Aspart 300 UNITS/3 ML PEN SC ×3 (10:38→17:02)
--- NOTE | 2017-10-29 10:59 | PT.INIE ---
PT Notes Inpatient Physical Therapy Evaluation Date: 10/29/17 Referring Doctor: Hemanth Rodriguez PT Orders: PT CONSULT: sepsis syndrome, weakness, immobility secondary to severe arthritis Precautions: Fall precautions, Contact Precautions Patient Profile/Admitting Diagnosis: Pt is a 57yr old male admitted with severe celluliitis of right leg, diagnosed with sepsis syndrome PMHX: Bipolar Disorder, chronic back pain, lower extremity edema, obesity, diabetes mellitus, diabetic neuropathy, diabetic foot ulcers, rheumatoid arthritis, osteoarthritis bilateral knees, sacral decubitus ulcer, chronic renal insufficiency, coronary artery disease, crohn's disease, s/p colectomy, anemia, urinary tract infection, dyslipidemia, hypoandrogenism, cholelithiasis, hypertension Social History/Home Situation: Resident of [facility]. Per patient he was ambulatory with FWW ~ 100ft independently Equipment Owned/DME: FWW Subjective: Pt sitting in chair in room finishing breakfast, agreeable to PT consult. States he feels weak. Reports he only wants to walk wearing his sneakers, sneakers are available in room. Objective: General Observation: telemetry, R UE IV, ruiz catheter Mental Status: A& O to name, location, circumstances Pain: c/o pain bilateral shoulders and right elbow with movement due to arthritis ROM: Right Upper Extremity: AAROM shoulder flexion 70, abduction 50, elbow -20 extension, wrist WNL Left Upper Extremity: AAROM shoulder flexion 80, abduction 55, elbow -10 extension, wrist WNL Right Lower Extremity: AAROM hip flexion 100, knee flexion 100, ankle to neutral DF Left Lower Extremity: AAROM hip flexion 100, knee flexion 100, ankle to neutral DF Strength: Right Upper Extremity: 1/5 shoulder flexion/abducation, 2/5 bicep, 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 Pt prefers to sit in recliner chair with 2 pillows under hips for elevation and LE's elevated Gait: * sneakers on for gait mobility CGA with bariatric FWW 5ftx2, stood at bedside for 5 min (2x), gait in room for transfers only at this time due to weakness. Pt left up in chair Balance: Static Sitting: normal Dynamic Sitting: normal Static Standing: fair Dynamic Standing: fair Special Tests: Mobility Limitations Standardized Measure [facility] 6 clicks Basic Mobility Inpatient Short Form: Raw Score: 14 Standardized Score: 38.10 CMS Score:61.29% CMS Modifier: CL Informed Consent/Education: Patient instructed in purpose of PT consult and plan of care. Assessment: Pt is a 57yr old male admitted with severe cellulitis of right leg, diagnosed with sepsis syndrome in setting of Bipolar Disorder, chronic back pain, lower extremity edema, obesity, diabetes mellitus, diabetic neuropathy, diabetic foot ulcers, rheumatoid arthritis, osteoarthritis bilateral knees, sacral decubitus ulcer, chronic renal insufficiency, coronary artery disease. Patient presents with the following impairment level findings: decreased bilateral shoulder and elbow ROM and painful joints due to arthritis making it difficult to use his arms for transfers and gait mobility, decreased strength in bilateral UE's and bilateral LE's making it difficult to perform bed mobility, transfers and gait, decreased static and dynamic standing balance putting him at high risk for falls, requiring bariatric FWW for gait stability, decreased gait distance due to weakness from RA and recent immobility due to hospitalization. Pt will benefit from skilled therapy intervention, anticipate return to the [facility] when medically stable. Impairments are contributing to the following functional limitations: AMPA score CMS Score:61.29% Patient is assessed as a Moderate [id number] complexity based on the following: History: severe celluliitis of right leg, diagnosed with sepsis syndrome in setting of Bipolar Disorder, chronic back pain, lower extremity edema, obesity, diabetes mellitus, diabetic neuropathy, diabetic foot ulcers, rheumatoid arthritis, osteoarthritis bilateral knees, sacral decubitus ulcer, chronic renal insufficiency, coronary artery disease. Examination: decreased bilateral shoulder and elbow ROM and painful joints due to arthritis making it difficult to use his arms for transfers and gait mobility, decreased strength in bilateral UE's and bilateral LE's making it dfficult to perform bed mobility, transfers and gait, decreased static and dynamic standing balance putting him at high risk for falls, requiring bariatric FWW for gait stability, decreased gait distance due to weakness from RA and recent immobility due to hospitalization. Presentation: evolving Decision Making: AMPAC score CMS Score:61.29% Goals: Goals X1 week 1. Supine-Sit minAx1 2. Sit-Supine minAx1 3. Sit-Stand SBA with bariatric FWW 4. Stand-Sit SBA 5. Bed-Chair SBA with bariatric FWW 6. Chair-Bed SBA with bariatric FWW 7. Gait SBA with bariatric FWW 75ft Plan of Care/Treatment Plan: 1-2x/day, 7 days/week x 1 week. Plan of care has been reviewed with the FOUR SLIDE MACHINE OPERATOR providing the service under Physical Therapy direction. Initiate Physical Therapy intervention for strengthening, bed mobility, transfers, gait, stairs, balance training, use of assistive device. DISCHARGE RECOMMENDATIONS: Return to the [facility] TREATMENT CODES: 30min IE 10:45 G Codes in the area mobility of walking and moving around: current status [id number] CL; projected status GP [id number]. Discharge status (if discharging) GP [id number] CL based on AMPAC score CMS Score:61.29% Yolanda Chang PT Intake Vital Signs 10/27/17 17:28 10/27/17 17:35 10/27/17 17:37 10/27/17 17:40 10/27/17 17:45 10/27/17 17:50 10/27/17 18:00 10/27/17 18:01 10/27/17 18:10 10/27/17 18:15 10/27/17 18:20 10/27/17 18:22 10/27/17 18:30 10/27/17 18:31 10/27/17 18:40 10/27/17 18:45 10/27/17 18:50 10/27/17 19:00 10/27/17 19:01 10/27/17 19:10 10/27/17 19:15 10/27/17 19:20 10/27/17 19:30 10/27/17 19:40 10/27/17 19:41 10/27/17 19:45 10/27/17 19:50 10/27/17 19:50 10/27/17 19:54 10/27/17 20:00 09/03/18 20:01 Height 6 ft 1 in 6 ft 1 in Weight 141.4 kg 141.4 kg 141.4 kg BP 170/58 H 203/123 H 200/85 H 191/154 H 170/58 H 168/53 H 151/61 H 136/92 H 153/61 H 147/59 H 132/59 L 135/54 L Respiration 32 H 25 H 28 H 31 H 24 23 26 H 29 H 24 26 H 26 H 24 25 H 20 25 H 21 29 H 28 H 22 31 H 29 H 20 25 H 32 H 29 H 37 H 38 H 37 H Pulse 110 H 108 H 104 H 111 H 105 H 106 H 105 H 102 H 101 H 98 H 98 H 96 H Temp 38.6 C H 39.7 C H Temp Source Skin Pulse Oximetry (%) 96 94 L 94 L 97 96 96 98 98 97 97 95 96 96 97 96 97 96 96 97 96 95 98 96 95 96 96 95 95 Oxygen Flow Rate 2 10/27/17 20:10 10/27/17 20:11 10/27/17 20:15 10/27/17 20:20 10/27/17 21:14 10/27/17 22:06 10/28/17 01:29 10/28/17 02:43 10/28/17 02:47 10/28/17 03:40 10/28/17 04:01 10/28/17 04:05 10/28/17 04:15 10/28/17 04:23 10/28/17 04:31 10/28/17 04:46 10/28/17 05:04 10/28/17 05:05 10/28/17 05:18 10/28/17 05:32 10/28/17 05:33 10/28/17 05:47 10/28/17 06:02 10/28/17 06:17 10/28/17 06:20 10/28/17 07:45 10/28/17 08:45 10/28/17 08:57 10/28/17 09:01 10/28/17 09:30 10/28/17 09:56 10/28/17 10:22 141.4 kg 134.7 kg 137/55 L 113/67 89/39 L 81/50 L 80/30 L 87/42 L 89/45 L 95/45 L 111/46 L 103/51 L 92/48 L 102/52 L 100/44 L 99/45 L 97/58 L 94/48 L 113/59 L 119/64 125/51 L 31 H 35 H 31 H 24 41 H 43 H 26 H 29 H 36 H 21 32 H 29 H 31 H 32 H 31 H 34 H 24 18 22 19 17 94 H 94 H 90 89 84 86 84 87 87 86 86 86 85 85 85 85 77 74 73 68 39.5 C H 39.3 C H 39.5 C H 39.2 C H 38.6 C H 38.4 C H 39.4 C H 39.2 C H 38.1 C H 36.5 C 36.8 C 36.3 C L Tympanic Tympanic Tympanic Tympanic Temporal Artery Scan Temporal Artery Scan Temporal Artery Scan Tympanic 97 97 98 93 L 90 L 95 0 0 2 2 10/28/17 10:40 10/28/17 11:12 10/28/17 12:10 10/28/17 12:48 10/28/17 12:50 10/28/17 13:57 10/28/17 14:01 10/28/17 14:20 10/28/17 14:30 10/28/17 14:40 10/28/17 14:50 10/28/17 15:00 10/28/17 15:01 10/28/17 15:10 10/28/17 15:20 10/28/17 15:30 10/28/17 15:40 10/28/17 15:50 10/28/17 16:00 10/28/17 16:01 10/28/17 16:15 10/28/17 16:15 10/28/17 16:20 10/28/17 16:40 10/28/17 16:50 10/28/17 17:02 10/28/17 18:01 10/28/17 19:00 10/28/17 20:00 10/28/17 20:39 10/28/17 21:00 10/28/17 22:00 106/58 L 115/63 135/75 139/70 149/75 H 151/74 H 110/52 L 136/57 L 188/66 H 12 18 21 16 15 17 16 18 18 18 18 15 20 24 15 19 19 17 18 19 19 17 22 19 21 24 26 H 66 60 61 63 64 66 67 70 82 36.3 C L 36.3 C L 36.2 C L 36.8 C 37.6 C H Temporal Artery Scan Temporal Artery Scan Temporal Artery Scan 100 99 0 0 10/28/17 23:07 10/28/17 23:08 10/28/17 23:34 10/29/17 00:34 10/29/17 01:00 10/29/17 02:00 10/29/17 03:07 10/29/17 06:00 10/29/17 07:00 135 kg 169/94 H 169/94 H 156/76 H 26 H 16 22 22 24 75 75 74 37.9 C H 37.9 C H 35.6 C L 36.7 C Temporal Artery Scan Temporal Artery Scan 97 96 96 0 0 0
[2017-10-29] MEDS: Normal Saline Flush 10 ML SYR 20 ML ×2 (11:05→14:53)
[2017-10-29] MEDS: Insulin Glargine 300 UNITS/3 ML PEN 80 UNITS SC ×2 (11:07→20:34)
--- NOTE | 2017-10-29 11:21 | IN_ITS ---
PT Notes Inpatient Physical Therapy Evaluation Date: 10/29/17 Referring Doctor: Hemanth Rodriguez PT Orders: PT CONSULT: sepsis syndrome, weakness, immobility secondary to severe arthritis Precautions: Fall precautions, Contact Precautions Patient Profile/Admitting Diagnosis: Pt is a 57yr old male admitted with severe celluliitis of right leg, diagnosed with sepsis syndrome PMHX: Bipolar Disorder, chronic back pain, lower extremity edema, obesity, diabetes mellitus, diabetic neuropathy, diabetic foot ulcers, rheumatoid arthritis, osteoarthritis bilateral knees, sacral decubitus ulcer, chronic renal insufficiency, coronary artery disease, crohn's disease, s/p colectomy, anemia, urinary tract infection, dyslipidemia, hypoandrogenism, cholelithiasis, hypertension Social History/Home Situation: Resident of [facility]. Per patient he was ambulatory with FWW ~ 100ft independently Equipment Owned/DME: FWW Subjective: Pt sitting in chair in room finishing breakfast, agreeable to PT consult. States he feels weak. Reports he only wants to walk wearing his sneakers, sneakers are available in room. Objective: General Observation: telemetry, R UE IV, ruiz catheter Mental Status: A& O to name, location, circumstances Pain: c/o pain bilateral shoulders and right elbow with movement due to arthritis ROM: Right Upper Extremity: AAROM shoulder flexion 70, abduction 50, elbow -20 extension, wrist WNL Left Upper Extremity: AAROM shoulder flexion 80, abduction 55, elbow -10 extension, wrist WNL Right Lower Extremity: AAROM hip flexion 100, knee flexion 100, ankle to neutral DF Left Lower Extremity: AAROM hip flexion 100, knee flexion 100, ankle to neutral DF Strength: Right Upper Extremity: 1/5 shoulder flexion/abducation, 2/5 bicep, 4/5 senior project controls specialist Left Upper Extremity: 1/5 shoulder flexion/abduction, 2/5 bicep, 3/5 senior project controls specialist Right Lower Extremity: 1/5 hip flexion, 2/5 quad, 3/5 DF Left Lower Extremity: 2/5 hip flexion, 2/5 quad, 3/5 DF Bed Mobility/Transfers: * Pt required maxA to don bilateral sneakers Sit-stand from low chair: ModAx2 with bariatric FWW Sit-stand from raised bed: CGA with bariatric FWW Chair-bed: CGA with bariatric FWW Bed-chair: CGA with bariatric FWW Stand-sit: SBA. Pt prefers to sit in recliner chair with 2 pillows under hips for elevation and LE's elevated Gait: * sneakers on for gait mobility CGA with bariatric FWW 5ftx2, stood at bedside for 5 min (2x), gait in room for transfers only at this time due to weakness. Pt left up in chair Balance: Static Sitting: normal Dynamic Sitting: normal Static Standing: fair Dynamic Standing: fair Special Tests: Mobility Limitations Standardized Measure [facility] 6 clicks Basic Mobility Inpatient Short Form: Raw Score: 14 Standardized Score: 38.10 CMS Score:61.29% CMS Modifier: CL Informed Consent/Education: Patient instructed in purpose of PT consult and plan of care. Assessment: Pt is a 57yr old male admitted with severe cellulitis of right leg, diagnosed with sepsis syndrome in setting of Bipolar Disorder, chronic back pain , lower extremity edema, obesity, diabetes mellitus, diabetic neuropathy, diabetic foot ulcers, rheumatoid arthritis, osteoarthritis bilateral knees, sacral decubitus ulcer, chronic renal insufficiency, coronary artery disease. Patient presents with the following impairment level findings: decreased bilateral shoulder and elbow ROM and painful joints due to arthritis making it difficult to use his arms for transfers and gait mobility, decreased strength in bilateral UE's and bilateral LE's making it difficult to perform bed mobility , transfers and gait, decreased static and dynamic standing balance putting him at high risk for falls, requiring bariatric FWW for gait stability, decreased gait distance due to weakness from RA and recent immobility due to hospitalization. Pt will benefit from skilled therapy intervention, anticipate return to the [facility] when medically stable. Impairments are contributing to the following functional limitations: AMPA score CMS Score:61.29% Patient is assessed as a Moderate 11617 complexity based on the following: History: severe celluliitis of right leg, diagnosed with sepsis syndrome in setting of Bipolar Disorder, chronic back pain, lower extremity edema, obesity , diabetes mellitus, diabetic neuropathy, diabetic foot ulcers, rheumatoid arthritis, osteoarthritis bilateral knees, sacral decubitus ulcer, chronic renal insufficiency, coronary artery disease. Examination: decreased bilateral shoulder and elbow ROM and painful joints due to arthritis making it difficult to use his arms for transfers and gait mobility , decreased strength in bilateral UE's and bilateral LE's making it dfficult to perform bed mobility, transfers and gait, decreased static and dynamic standing balance putting him at high risk for falls, requiring bariatric FWW for gait stability, decreased gait distance due to weakness from RA and recent immobility due to hospitalization. Presentation: evolving Decision Making: AMPAC score CMS Score:61.29% Goals: Goals X1 week 1. Supine-Sit minAx1 2. Sit-Supine minAx1 3. Sit-Stand SBA with bariatric FWW 4. Stand-Sit SBA 5. Bed-Chair SBA with bariatric FWW 6. Chair-Bed SBA with bariatric FWW 7. Gait SBA with bariatric FWW 75ft Plan of Care/Treatment Plan: 1-2x/day, 7 days/week x 1 week. Plan of care has been reviewed with the [employer]PERATOR providing the service under Physical Therapy direction. Initiate Physical Therapy intervention for strengthening, bed mobility, transfers, gait, stairs, balance training, use of assistive device. DISCHARGE RECOMMENDATIONS: Return to the [facility] TREATMENT CODES: 30min IE 10:45 G Codes in the area mobility of walking and moving around: current status [id number] CL; projected status GP [id number]. Discharge status (if discharging) GP [id number] CL based on AMPAC score CMS Score:61.29% Yolanda Chang PT Intake Vital Signs 3 l l l l 10/27/17 17:28 l l 10/27/17 17:35 l l 10/27/17 17:37 l l 10/27/17 17:40 l l 10/27/17 17:45 l l 10/27/17 17:50 l l 10/27/17 18:00 l l 10/27/17 18:01 l l 10/27/17 18:10 l l 10/27/17 18:15 l l 10/27/17 18:20 l l 10/27/17 18:22 l l 10/27/17 18:30 l l 10/27/17 18:31 l l 10/27/17 18:40 l l 10/27/17 18:45 l l 10/27/17 18:50 l l 10/27/17 19:00 l l 10/27/17 19:01 l l 10/27/17 19:10 l l 10/27/17 19:15 l l 10/27/17 19:20 l l 10/27/17 19:30 l l 10/27/17 19:40 l l 10/27/17 19:41 l l 10/27/17 19:45 l l 10/27/17 19:50 l l 10/27/17 19:50 l l 10/27/17 19:54 l l 10/27/17 20:00 l l 10/27/17 20:01 l l 10/27/17 20:10 l l 10/27/17 20:11 l l 10/27/17 20:15 l l 10/27/17 20:20 l l 10/27/17 21:14 l l 10/27/17 22:06 l l 10/28/17 01:29 l l 10/28/17 02:43 l l 10/28/17 02:47 l l 10/28/17 03:40 l l 10/28/17 04:01 l l 10/28/17 04:05 l l 10/28/17 04:15 l l 10/28/17 04:23 l l 10/28/17 04:31 l l 10/28/17 04:46 l l 10/28/17 05:04 l l 10/28/17 05:05 l l 10/28/17 05:18 l l 10/28/17 05:32 l l 10/28/17 05:33 l l 10/28/17 05:47 l l 10/28/17 06:02 l l 10/28/17 06:17 l l 10/28/17 06:20 l l 10/28/17 07:45 l l 10/28/17 08:45 l l 10/28/17 08:57 l l 10/28/17 09:01 l l 10/28/17 09:30 l l 10/28/17 09:56 l l 10/28/17 10:22 l l 10/28/17 10:40 l l 10/28/17 11:12 l l 10/28/17 12:10 l l 10/28/17 12:48 l l 10/28/17 12:50 l l 10/28/17 13:57 l l 10/28/17 14:01 l l 10/28/17 14:20 l l 10/28/17 14:30 l l 10/28/17 14:40 l l 10/28/17 14:50 l l 10/28/17 15:00 l l 10/28/17 15:01 l l 10/28/17 15:10 l l 10/28/17 15:20 l l 10/28/17 15:30 l l 10/28/17 15:40 l l 10/28/17 15:50 l l 10/28/17 16:00 l l 10/28/17 16:01 l l 10/28/17 16:15 l l 10/28/17 16:15 l l 10/28/17 16:20 l l 10/28/17 16:40 l l 10/28/17 16:50 l l 10/28/17 17:02 l l 10/28/17 18:01 l l 10/28/17 19:00 l l 10/28/17 20:00 l l 10/28/17 20:39 l l 10/28/17 21:00 l l 10/28/17 22:00 l l 10/28/17 23:07 l l 10/28/17 23:08 l l 10/28/17 23:34 l l 10/29/17 00:34 l l 10/29/17 01:00 l l 10/29/17 02:00 l l 10/29/17 03:07 l l 10/29/17 06:00 l l 10/29/17 07:00 l l Height 6 ft 1 in 6 ft 1 in l l Weight 141.4 kg 141.4 kg 141.4 kg 141.4 kg 134.7 kg 135 kg l l BP 170/58 H 203/123 H 200/85 H 191/154 H 170/58 H 168/53 H 151/61 H 136/92 H 153/61 H 147/59 H 132/59 L 135/54 L 137/55 L 113/67 89/39 L 81/50 L 80/30 L 87/42 L 89/45 L 95/45 L 111/46 L 103/51 L 92 /48 L 102/52 L 100/44 L 99/45 L 97/58 L 94/48 L 113/ 59 L 119/64 125/51 L 106/58 L 115/63 135/75 139/70 149/75 H 151/74 H 110/52 L 136/57 L 188/66 H 169/94 H 169/94 H 156/76 H l l Respiration 32 H 25 H 28 H 31 H 24 23 26 H 29 H 24 26 H 26 H 24 25 H 20 25 H 21 29 H 28 H 22 31 H 29 H 20 25 H 32 H 29 H 37 H 38 H 37 H 31 H 35 H 31 H 24 41 H 43 H 26 H 29 H 36 H 21 32 H 29 H 31 H 32 H 31 H 34 H 24 18 22 19 17 12 18 21 16 15 17 16 18 18 18 18 15 20 24 15 19 19 17 18 19 19 17 22 19 21 24 26 H 26 H 16 22 22 24 l l Pulse 110 H 108 H 104 H 111 H 105 H 106 H 105 H 102 H 101 H 98 H 98 H 96 H 94 H 94 H 90 89 84 86 84 87 87 86 86 86 85 85 85 85 77 74 73 68 66 60 61 63 64 66 67 70 82 75 75 74 l l Temp 38.6 C H 39.7 C H 39.5 C H 39.3 C H 39.5 C H 39.2 C H 38.6 C H 38.4 C H 39.4 C H 39.2 C H 38.1 C H 36.5 C 36.8 C 36.3 C L 36.3 C L 36.3 C L 36.2 C L 36.8 C 37.6 C H 37.9 C H 37.9 C H 35.6 C L 36.7 C l l Temp Source Skin Tympanic Tympanic Tympanic Tympanic Temporal Artery Scan Temporal Artery Scan Temporal Artery Scan Tympanic Temporal Artery Scan Temporal Artery Scan Temporal Artery Scan Temporal Artery Scan Temporal Artery Scan l l Pulse Oximetry (%) 96 94 L 94 L 97 96 96 98 98 97 97 95 96 96 97 96 97 96 96 97 96 95 98 96 95 96 96 95 95 97 97 98 93 L 90 L 95 100 99 97 96 96 l l Oxygen Flow Rate 2 0 0 2 2 0 0 0 0 0
--- NOTE | 2017-10-29 11:40 | PHARADMIT ---
Addendum entered by Guido Medina III 11/04/17 14:36: Pharmacy Note Subjective Remains afebrile. No new MD notes yet today. Objective BP-157/76 Na-145 K+4.2 Cl-112 SCr-2.07 H&H-7.3/26.6 FSBS-310 WgT-134 kg Assessment Vancomycin/Zosyn DC'd, PO Augmentin ordered Plan Patient to return to [facility] once course of ABX completed Original Note: Addendum entered by Rosa Beltran 11/03/17 12:08: Pharmacy Note Subjective Objective BP-155/78 other VS okay Cl-113(up) BUN-50(down) SCr-2.16(down) Assessment vanco trough drawn today was 18.4, continuing current dose, changed infusion time of dose from 60 minutes to 90 minutes methylprednisolone changed to prednisone terazosin increased from 4 to 5 mg BID Plan MD wants to continue abx for a 7-10 day course continue to watch renal function and vanco dosing Original Note: Addendum entered by Guido Medina III 11/02/17 12:11: Pharmacy Note Subjective blood pressures has improved (182/67), fever free, Objective VS-OK Afebrile SCr-2.32 K+4.7 WBC-15.69 H&H,Plts-OK Assessment Vancomycin trough due on 11/04 (steady state in 77.9hrs) Zosyn continues Plan Patient is to be transferred to Med/Surg floor today. Original Note: Addendum entered by Guido Medina III 11/01/17 14:51: Pharmacy Note Subjective UTI (e.coli) & group C strep in blood culture Objective BP- 172/80 afebrile WBC-1.39 SCr-2.17 Lytes, Plts-OK H&H-8.3/28.8 Assessment Vancomycin trough tomorrow night, Zosyn continues Plan Watch I&Os as patient is fluid overloaded Original Note: Addendum entered by Guido Medina III 10/31/17 12:04: Pharmacy Note Subjective MD has decided to cover for [employer] Acquired Pneumonia Objective BP-183/81 Temp overnite-37.8C WBC-15.69 K+4.7 SCr-2.32 Patient has colostomy. Assessment Ampicillin DC'd, Zosyn & Vancomycin started. KXL8 dc'd. Lopressor restarted, Hydralazine started yesterday for HBP. mentioned going to IV PPi @ bid, On Prilosec PO daily currently. Plan Follow Vancomycin trough, SCr, WBC K+ Original Note: Addendum entered by Guido Medina III 10/30/17 15:24: Pharmacy Note Subjective MD noted that patient is experincing fluid overload and is titrating his dose of Lasix Objective BP-208/108 HR-89 K+5.4 Na-136 SCr-2.72 WBC-15.31 Wgt-137 kg No BM noted Assessment Norvasc increased to 10mg Catapres-dc'd Lopressor held..UTI & Group C strep blood cultures treated with Ampicilin 2gm IV q6hrs x 2 weeks. Plan Improving afebrile x 48 hrs, Hyperkaelmia responded to KXL8 Original Note: Admission Pharmacy Clinical Review SEPSIS Code Status Full Code Current Weight 135 kg Renally Cleared and Narrow Therapeutic Index Meds CRCL ~30ML/MIN QTc Value / Action Taken BP Control, Fever 143/85 AFEBRILE Electrolytes reviewed K 6.1(KAYEXALATE ORDERED) DVT Prophylaxis HEPARIN Opiate Usage / Scheduled Bowel Regimen Ordered PRN/PRN Plt/SCr for Heparin / Enoxaparin 398/2.96 INR for Warfarin NA H/H stable, WBC/Bands 7.9/27.2 WBC 22.99 Antibiotic appropriateness VANCOMYCIN, PIP/TAZO(EXTENDED INFUSION DOSING) Cultures and Sensitivities BC STREPTOCOCCUS, UC ENTEROCOCCUS Surgical ABX d/c within 24 hr NA DM control / Insulin Dosing FS 399, INSULIN ASPART AND GLARGINE Heart Failure (Check EF%) (ARYA's, B-Block, Diuretics) IV to PO Switch Home Meds Reviewed Home Meds Not Ordered prednisone 20 mg PO DAILY(ON SOLUMEDROL INPT) ergocalciferol (vitamin D2) [Drisdol] 50,000 units PO DIRECTED NS multivitamin with minerals 1 ea PO DAILY 04/21/14 carboxymethylcellulose-glycern [Refresh Optive] 1 drp OPHTHALMIC BID [id number] [[id number] (C-elton)] liraglutide [Victoza 3-Saleem] 1.8 mg SUB-Q DAILY 10/19/15 lisinopril 20 mg PO DAILY 10/19/15 [History Confirmed 10/27/17] naproxen sodium 440 mg PO BID 10/19/15 [History Confirmed 10/27/17] thymol-chlorophyllin [Chlorophyll] 3 mg PO TID 10/19/15 oxybutynin chloride [Ditropan XL] 15 mg PO DAILY 10/20/15 potassium chloride [Klor-Con M10] 20 meq PO DAILY tabcr 10/26/15 amoxicillin-pot clavulanate 1 tab PO BID #15 tab 05/26/16 amlodipine 5 mg PO DAILY 07/08/17 [History Confirmed 10/27/17] dextran 70-hypromellose [Natural Balance Tears] 1 drp OU TID PRN hydroxyzine HCl 50 mg PO QID PRN 07/08/17 [History Confirmed 10/27/17] oxycodone 10 mg PO Q4H 07/08/17 [History Confirmed 10/27/17] melatonin 10 mg PO .QHS 10/27/17 [History Confirmed 10/27/17] metoprolol succinate 25 mg PO DAILY 10/27/17 Comments
--- NOTE | 2017-10-29 12:54 | DM INPTCON_ITS ---
DESCRIPTION/ASSESSMENT: Appreciate diabetes consult for Brendan Corley who is hospitalized for cellulitis. BMI 39 A1c not current in [facility] During this hospitalization Mr. Corley has blood sugars 82-514 taking 80units Lantus twice daily and insulin correction at resistant level. He is also on 80u Prednisolone. His home medication list suggests he receives 25-50units mealtime insulin. Met with Mr. Corley who states he does not pay attention to his blood sugars at the [facility] as they take care of it. He states he gets much more food there than here and is desiring larger portions. He states he rarely has symptoms of hypoglycemia, but he eats chocolate or juice when he gets it. INTERVENTION: Suggest increasing bolus insulin to 25units to cover food as he appears to receive at the [facility] in addition to the insulin correction he receives. Mr. Corley has had self management support in the past and currently is cared for in his residential setting. No self management education is warranted at this time. PLAN: Suggest 25units Novolog to cover food in addition to resistant insulin correction Will follow blood sugars Suggest A1c if current not available
--- NOTE | 2017-10-29 12:58 | PGE_ITS ---
Assessment and Plan (1) Sepsis: Current visit: Yes Status: Acute Mr. Corley as evidence of enterococcus faecalis UTI that is sensitive to ampicillin, as well as blood cultures positive for group C strep. While chest x -ray shows possible pneumonia versus mild CHF, clinically the patient does not appear to have any pulmonary symptoms. Discussed case with infectious disease at [facility]. Will discontinue vancomycin and Zosyn, and initiates patient on ampicillin instead, renally dosed. Monitor temperature as well as white count carefully, with a low threshold for broadening coverage if the patient becomes unstable. Blood pressure is vastly improved, but with continued IV fluids due to ongoing acute kidney injury. Please note that the patient is currently on stress dose steroids?Mr. Corley is likely adrenally insufficient as he is on chronic prednisone use. Will attempt to wean back to oral prednisone soon once infection is well controlled. (2) JESUS (acute kidney injury): Current visit: Yes Status: Acute Evidence of acute kidney injury superimposed on chronic kidney disease. This is in the setting of acute illness and sepsis, with a transient decrease in urinary output. Mild hyperkalemia by labs this morning within unchanged creatinine. Current creatinine is at 2.96, same as it was yesterday. This is up from a baseline of approximately 1.5-2. Monitor renal function carefully, avoid nephrotoxins, and renally dose medications when appropriate. While the patient is overall volume overloaded will continue IV fluids for now to continue to encourage hydration, consideration for discontinuation tomorrow. Mild hyperkalemia present. As the current goal is to maintain hydration will avoid administration of Lasix, and initiate oral Kayexalate. Repeat basic metabolic panel in the afternoon. (3) Diabetes mellitus type 2, controlled: Current visit: No Status: Chronic Continue basal insulin, but change to resistance sliding scale as the patient's blood sugars are grossly elevated. This is in the setting of both infection as well as stress dose steroid use. Consider increase in basal insulin if continued hyperglycemia. Problem details: *Poorly Controlled a. Diabetic foot ulcers. b. Osteomyelitis in December 2012. c. Diabetic nephropathy with chronic renal insufficiency. (4) UTI (urinary tract infection) due to Enterococcus: Current visit: No Status: Acute UTI with evidence of pansensitive enterococcus faecalis. Ampicillin being initiated today. (5) Anxiety: Current visit: No Status: Chronic Currently on both SNRI as well as SSRI therapy Problem details: On Venlafaxine (6) Hypertension: Current visit: No Status: Chronic Initially hypotensive in the setting of sepsis, now appears to be normotensive to slightly hypertensive. Remains on IV fluids secondary to acute kidney injury. Consider reinitiation of amlodipine and metoprolol soon. We will continue to hold ARYA inhibitor in the setting of acute kidney injury on CKD. (7) Chronic pain: Current visit: No Status: Chronic Currently on IV morphine for pain control, as well as home regimen of gabapentin and nortriptyline. Patient's fentanyl patch appears to be on hold currently as is his oxycodone. Continue to monitor. Problem details: On both Methadone and Fentanyl as well as Ultram and Naproxen. (8) CAD (coronary artery disease): Current visit: No Status: Chronic Noted. Appears quiescent. (9) Rheumatoid arthritis: Current visit: No Status: Chronic Maintained on Humira as an outpatient, as well as daily prednisone therapy. Also on pain regimen as above. (10) Crohns disease: Current visit: No Status: Chronic Status post total colectomy, with ostomy in place that appears to be functioning well. Problem details: a. S/P total colectomy. (11) Chronic insomnia: Current visit: No Status: Chronic Initiate nightly mirtazapine. (12) Anemia: Current visit: No Status: Acute Hemoglobin low but stable at 7.9, with further workup showing a low iron, low TIBC, and normal ferritin at 124, indicating a likely mixed etiology for the patient's anemia. B12 and folic acid were also checked and normal. Delete (13) Hypothyroidism: Current visit: No Status: Chronic Continue replacement therapy. (14) DVT prophylaxis: Current visit: Yes Status: Acute Continue subcutaneous heparin. Subjective Interval history since last seen: 57-year-old resident at the [facility] admitted from [facility] on October 27 with a diagnosis of bacteremia. Mr. Corley is a chronic resident at a nursing facility due to his significant disability from rheumatoid arthritis. He was sent in for further evaluation from the [facility] to [facility] ED due to development of high fevers, with further workup showing evidence of a significant leukocytosis, elevated lactate, and eventual development of hypotension. Initially attributed to potential lower extremity cellulitis, the patient was found to have evidence of a UTI and possible findings of pneumonia by chest x-ray, as well as excoriations in his skin (lower extremities) as potential nidus for infection. Mr. Corley appears vastly improved this morning. He still has significant leukocytosis but has improved since yesterday. Noted to have somewhat decreased urine output yesterday the patient has adequate output today while maintained on IV fluids. He had a temperature max of 37.9 last night, but remains afebrile since then -this is a significant improvement from an original temperature of 39 5 at time of admission. No overnight events reported. Exam Const General: cooperative, not healthy appearing, no acute distress, cushingoid and disheveled Nutritional Appearance: obese Orientation: alert and oriented to person Resp Effort & Inspection: normal respiratory effort and able to speak in complete sentences Auscultation: clear to auscultation bilaterally ( ) Cardio Rate: regular rate Heart Sounds: S1 abnormal (Distant heart sounds, difficult to discern) GI Palpation: soft and nontender Neuro General: alert and oriented x3 Extrem General: edema (4+ edema both lower extremities at the right leg is more tensely edematous and has severe erythema of the entire leg through the knee) Laterality: bilateral Objective Objective Clinical Data: Abnormal lab results 10/29/17 10/29/17 10/29/17 Range/Units 06:40 06:40 06:40 WBC 22.99 H (4.4-10.8) k/cumm RBC 4.06 L (4.50-6.00) m/cumm Hgb 7.9 L (13.5-17.5) g/dL Hct 27.2 L (40.0-50.0) % MCV 67.0 L (80-95) fL MCH 19.5 L (27.0-33.0) pg MCHC 29.0 L (32.0-36.0) g/dL RDW 18.6 H (11.8-14.1) % Absolute Neutrophils 21.29 H (1.2-6.7) k/cumm Absolute Lymphocytes 0.76 L (1.2-3.4) k/cumm Absolute Monocytes 0.85 H (0.11-0.7) k/cumm Potassium 6.1 H* (3.5-5.1) mmol/L Chloride 108 H (98-107) mmol/L Carbon Dioxide 20.9 L (21.0-32.0) mmol/L BUN 52 H D (7-18) mg/dL Creatinine 2.96 H (0.70-1.30) mg/dL Glucose 351 H D (70-100) mg/dL Calcium 7.7 L (8.5-10.1) mg/dL Iron 8 L (50-175) ug/dL TIBC 245 L (250-450) ug/dL Transferrin % Sat 3 L (20-55) % AST 14 L (15-37) U/L Alkaline Phosphatase 248 H (46-116) U/L Albumin 1.9 L (3.4-5.0) g/dL Vital Signs Temp 36.8 C 10/29/17 11:21 Pulse 76 10/29/17 11:10 Resp 24 10/29/17 03:07 BP 143/85 H 10/29/17 11:10 Pulse Ox 96 10/29/17 07:00 Intake & Output 10/28/17 10/29/17 10/29/17 23:59 11:59 23:59 Intake Total 3553 / 3553 2065 / 2065 Output Total 825 / 825 1080 / 1080 Balance 2728 / 2728 985 / 985 Weight 135 kg Intake: IV 3030 / 3030 1175 / 1175 Oral 523 / 523 890 / 890 Output: Urine 600 / 600 675 / 675 Stool 225 / 225 405 / 405 Other: Urine Color Light Cat Yellow Urine Appearance Clear Clear Urine Odor Normal Comment Downing in place draining 30-40cc/hr. Downing in place draining 30-40cc/ hr. Voiding Methods Indwelling Catheter Laboratory Results WBC 22.99 k/cumm (4.4-10.8) H 10/29/17 06:40 RBC 4.06 m/cumm (4.50-6.00) L 10/29/17 06:40 Hgb 7.9 g/dL (13.5-17.5) L 10/29/17 06:40 Hct 27.2 % (40.0-50.0) L 10/29/17 06:40 MCV 67.0 fL (80-95) L 10/29/17 06:40 MCH 19.5 pg (27.0-33.0) L 10/29/17 06:40 MCHC 29.0 g/dL (32.0-36.0) L 10/29/17 06:40 RDW 18.6 % (11.8-14.1) H 10/29/17 06:40 Plt Count 398 x1000/uL (130-400) 10/29/17 06:40 MPV 10.4 fL (8.0-11.0) 10/29/17 06:40 Immature Gran % 0.3 10/29/17 06:40 Neutrophils % 92.6 10/29/17 06:40 Lymphocytes % 3.3 10/29/17 06:40 Monocytes % 3.7 10/29/17 06:40 Eosinophils % 0.0 10/29/17 06:40 Basophils % 0.1 10/29/17 06:40 Absolute Neutrophils 21.29 k/cumm (1.2-6.7) H 10/29/17 06:40 Band Neutrophils 21.0 % 10/28/17 06:30 Absolute Lymphocytes 0.76 k/cumm (1.2-3.4) L 10/29/17 06:40 Absolute Monocytes 0.85 k/cumm (0.11-0.7) H 10/29/17 06:40 Absolute Eosinophils 0.00 k/cumm (0.0-0.7) 10/29/17 06:40 Absolute Basophils 0.02 k/cumm (0.0-0.2) 10/29/17 06:40 Metamyelocytes 1.0 % 10/28/17 06:30 Differential Comment Comment 10/29/17 06:40 RBC Morphology See below 10/29/17 06:40 Polychromasia Present 10/29/17 06:40 Hypochromasia 2+ 10/29/17 06:40 Poikilocytosis 2+ 10/29/17 06:40 Basophilic Stippling Present 10/28/17 06:30 Anisocytosis 3+ 10/29/17 06:40 Microcytosis 3+ 10/29/17 06:40 Ovalocytes 2+ 10/29/17 06:40 PT 10.9 sec (9.3-10.8) H 10/27/17 18:02 INR 1.1 (1.0-3.5) 10/27/17 18:02 Sodium 136 mmol/L (136-145) 10/29/17 06:40 Potassium 6.1 mmol/L (3.5-5.1) H* 10/29/17 06:40 Chloride 108 mmol/L (98-107) H 10/29/17 06:40 Carbon Dioxide 20.9 mmol/L (21.0-32.0) L 10/29/17 06:40 Anion Gap 7.1 mmol/L (3-11) 10/29/17 06:40 BUN 52 mg/dL (7-18) H D 10/29/17 06:40 Creatinine 2.96 mg/dL (0.70-1.30) H 10/29/17 06:40 Estimated GFR/1.73 m2 21.94 (mL/min/1.73m2) 10/29/17 06:40 Glucose 351 mg/dL (70-100) H D 10/29/17 06:40 Hemoglobin A1c 6.2 % (4.5-6.2) 10/28/17 06:30 Lactate 0.9 mmol/L (0.6-1.4) 10/28/17 09:48 Calcium 7.7 mg/dL (8.5-10.1) L 10/29/17 06:40 Iron 8 ug/dL (50-175) L 10/29/17 06:40 TIBC 245 ug/dL (250-450) L 10/29/17 06:40 Transferrin % Sat 3 % (20-55) L 10/29/17 06:40 Ferritin 124 ng/mL (8-388) 10/29/17 06:40 Total Bilirubin 0.2 mg/dL (0.2-1.0) 10/29/17 06:40 AST 14 U/L (15-37) L 10/29/17 06:40 ALT 17 U/L (12-78) 10/29/17 06:40 Alkaline Phosphatase 248 U/L (46-116) H 10/29/17 06:40 NT-Pro-B Natriuret Pep 4180 pg/mL (-299) H 10/28/17 06:30 Total Protein 6.6 g/dL (6.4-8.2) 10/29/17 06:40 Albumin 1.9 g/dL (3.4-5.0) L 10/29/17 06:40 Vitamin B12 912 pg/mL (193-986) 10/29/17 06:40 Folate 14.1 ng/mL (8.6-20.0) 10/29/17 06:40 Urine Color Yellow (Yellow) 10/27/17 18:10 Urine Clarity Clear 10/27/17 18:10 Urine pH 5.5 (5-8) 10/27/17 18:10 Ur Specific [place] 1.020 (1.005-1.025) 10/27/17 18:10 Urine Protein >=300 mg/dL (Negative) H 10/27/17 18:10 Urine Ketones Negative mg/dL (Negative) 10/27/17 18:10 Urine Blood Small (Negative) H 10/27/17 18:10 Urine Nitrite Negative (Negative) 10/27/17 18:10 Urine Bilirubin Negative (Negative) 10/27/17 18:10 Urine Urobilinogen 0.2 EU/dL (Up TO 0.2) 10/27/17 18:10 Ur Leukocyte Esterase Trace (Negative) H 10/27/17 18:10 Urine RBC 10-20 (0-2) H 10/27/17 18:10 Urine WBC 20-50 HPF (0-5) 10/27/17 18:10 Ur Epithelial Cells Few HPF (Negative) 10/27/17 18:10 Urine Crystals Negative HPF (Negative) 10/27/17 18:10 Urine Bacteria Moderate HPF (Negative) 10/27/17 18:10 Urine Casts 0-2 coarse granular LPF (Negative) 10/27/17 18:10 Urine Mucus Negative (Negative) 10/27/17 18:10 Urine Other Few transitional (Negative) 10/27/17 18:10 Ur Culture Indicated? Yes 10/27/17 18:10 Urine Glucose Negative mg/dL (Negative) 10/27/17 18:10 Date of service: 10/29/17 Time of Service: 12:59
--- NOTE | 2017-10-29 13:12 | PDOC.CMPRO ---
- If Service Date Differs Date of service: 10/29/17 Time of Service: 13:12 Care Management Progress Note S/O: CM met with patient in the room he is up to the chair and improving. Isela from the [facility] met with patient and he completed the bed hold. Anticipate he will be ready to return to the [facility] later this week he is currently being treated for sepsis r/t UTI. A:Brendan is a 57 year old male admitted with sepsis related to a UTI. P:Brendan will return to the [facility] when medically ready per provider. Plan to have him transfer by wheelchair van vs RCT. CM faxed update to Meg FIORE at the [facility] today. CM to continue to provide support to patient and care team ongoing discharge planning and disposition.
--- NOTE | 2017-10-29 13:24 | CMPROGNOTE_ITS ---
- If Service Date Differs Date of service: 10/29/17 Time of Service: 13:12 Care Management Progress Note S/O: CM met with patient in the room he is up to the chair and improving. Isela from the [facility] met with patient and he completed the bed hold. Anticipate he will be ready to return to the [facility] later this week he is currently being treated for sepsis r/t UTI. A:Brendan is a 57 year old male admitted with sepsis related to a UTI. P:Brendan will return to the [facility] when medically ready per provider. Plan to have him transfer by wheelchair van vs RCT. CM faxed update to Meg FIORE at the [facility] today. CM to continue to provide support to patient and care team ongoing discharge planning and disposition.
[2017-10-29] MEDS: AMPICILLIN SODIUM 2 GM in Normal Saline 100 ML IVPB ×2 (14:49→19:54)
[2017-10-29] MEDS: amLODIPine 5 MG TAB PO (14:49)
[2017-10-29 14:50] LABS: BUN 56 mg/dL (7-18); CREATININE 3.01 mg/dL (0.70-1.30); Calcium 8.2 mg/dL (8.5-10.1); Chloride 106 mmol/L (98-107); Estimated GFR 21.52 (mL/min/1.73m2); Glucose 448 mg/dL (70-100); Sodium 133 mmol/L (136-145)
--- NOTE | 2017-10-29 15:05 | PT.INNT ---
PT Notes 10/29/17 Held afternoon PT session, per nsg. Will attempt to resume PT services tomorrow, if appropriate. Elsa Apaircio, LOWERATOR OPERATOR
--- NOTE | 2017-10-29 15:06 | NT_ITS ---
PT Notes 10/29/17 Held afternoon PT session, per nsg. Will attempt to resume PT services tomorrow , if appropriate. Elsa Aparicio, NURSE SPECIALIST
[2017-10-29] MEDS: Furosemide 20 MG/2 ML VIAL IVP (16:37)
[2017-10-29] MEDS: Normal Saline Flush 10 ML SYR IVP ×2 (16:38→20:07)
[2017-10-29] MEDS: Sertraline 50 MG TAB PO (20:06)
[2017-10-29 20:58] LABS: Potassium 6.5 mmol/L (3.5-5.1)
[2017-10-29] MEDS: Nystatin POWDER 15 GM JAR TP (21:06)
[2017-10-29] MEDS: Mirtazapine 15 MG TAB PO (21:10)
[2017-10-29] MEDS: risperiDONE 1 MG TAB 3 MG PO (21:10)
[2017-10-30] VITALS (38 sets, daily range): BP systolic 135–208; BP diastolic 54–111; PULSE 60–93; RESP 14–29; TEMP 36.1–37.8; O2SAT 95–98
[2017-10-30] MEDS: Calcium Gluconate 4.65 MEQ/10 ML VIAL 4.65 MG IVP (00:40)
[2017-10-30] MEDS: Insulin REGULAR-Human 100 UNITS/ML UNIT 10 UNITS IV (01:11)
[2017-10-30] MEDS: Dextrose 50%-Water 25 GM/50 ML SYR IVP (01:11)
[2017-10-30] MEDS: cloNIDine 0.1 MG TAB PO (01:26)
[2017-10-30] MEDS: AMPICILLIN SODIUM 2 GM in Normal Saline 100 ML IVPB ×4 (01:26→20:04)
[2017-10-30 04:24] LABS: Abs Immature Grans 0.07 k/cumm (0.0-0.09); Absolute Lymphocyte Count 0.57 k/cumm (1.2-3.4); Absolute Neutrophil Count 14.21 k/cumm (1.2-6.7); Basophils % 0.1; HCT 28.3 % (40.0-50.0); HGB 8.4 g/dL (13.5-17.5); Immature Grans % 0.5; Lymphocytes % 3.7; Mean Corp. HGB Concentration 29.7 g/dL (32.0-36.0); Mean Corpuscular Hemoglobin 19.8 pg (27.0-33.0); Mean Corpuscular Volume 66.7 fL (80-95); Mean Platelet Volume 10.4 fL (8.0-11.0); Monocytes % 2.9; Neutrophils % 92.8; Platelet Count 473 x1000/uL (130-400); RBC 4.24 m/cumm (4.50-6.00); RBC Distribution Width 18.7 % (11.8-14.1); White Blood Cell Count 15.31 k/cumm (4.4-10.8)
[2017-10-30 04:31] LABS: Absolute Basophil Count 0.02 k/cumm (0.0-0.2); Absolute Monocyte Count 0.44 k/cumm (0.11-0.7)
[2017-10-30 04:37] LABS: ALT 19 U/L (12-78); AST 11 U/L (15-37); Albumin 2.1 g/dL (3.4-5.0); Alkaline Phosphatase 228 U/L (46-116); Anion Gap 3.7 mmol/L (3-11); BUN 64 mg/dL (7-18); Bilirubin, Total 0.2 mg/dL (0.2-1.0); CO2 24.3 mmol/L (21.0-32.0); CREATININE 2.81 mg/dL (0.70-1.30); Calcium 8.6 mg/dL (8.5-10.1); Chloride 108 mmol/L (98-107); Estimated GFR 23.29 (mL/min/1.73m2); Glucose 347 mg/dL (70-100); Sodium 136 mmol/L (136-145); Total Protein 7.4 g/dL (6.4-8.2)
[2017-10-30 04:55] LABS: Potassium 6.1 mmol/L (3.5-5.1)
[2017-10-30] MEDS: methylPREDNISolone SUCC 125 MG VIAL 80 MG IVP (05:26)
[2017-10-30] MEDS: Levothyroxine 50 MCG TAB PO (05:26)
[2017-10-30] MEDS: Heparin 5,000 UNITS/ML VIAL 5000 UNITS SC ×3 (05:27→20:11)
[2017-10-30 06:11] LABS: Anisocytosis 2+; Hypochromasia 2+; Microcytosis 2+
[2017-10-30 06:12] LABS: Poikilocytes 1+
[2017-10-30] MEDS: Insulin Aspart 300 UNITS/3 ML PEN SC ×3 (09:00→18:37)
[2017-10-30] MEDS: Furosemide 20 MG/2 ML VIAL IVP (09:18)
[2017-10-30] MEDS: Venlafaxine 37.5 MG CAPCR 75 MG PO (09:19)
[2017-10-30] MEDS: Gabapentin 800 MG TAB PO ×3 (09:19→20:07)
[2017-10-30] MEDS: amLODIPine 5 MG TAB 10 MG PO (09:19)
[2017-10-30] MEDS: Omeprazole 20 MG CAPCR PO (09:19)
[2017-10-30] MEDS: carBAMazepine 200 MG TAB 100 MG PO ×2 (09:20→20:06)
[2017-10-30] MEDS: Insulin Glargine 300 UNITS/3 ML PEN 80 UNITS SC ×2 (09:22→21:01)
--- NOTE | 2017-10-30 09:52 | PDOC.CMPRO ---
- If Service Date Differs Date of service: 10/30/17 Time of Service: 09:52 Care Management Progress Note S/O: Brendan is doing well this morning. He continues on IV Ampicillin Q6h. Per morning report Brendan will most likely need two weeks of IV antibiotics. CM spoke with Isela, [facility], today whom states that they can only manage Daily IV medications and would not be able to provide more than that. Isela also states that Brendan has 7 days of his Medicare swingbed benefit left at this time. A:Brendan is a 57 year old male admitted with sepsis related to a UTI. P:Brendan will potentially swing prior to returning to the [facility] when medically ready per provider. Plan to have him transfer by wheelchair van vs RCT. CM faxed update to Meg FIORE at the [facility] today. CM to continue to provide support to patient and care team ongoing discharge planning and disposition.
--- NOTE | 2017-10-30 09:56 | CMPROGNOTE_ITS ---
- If Service Date Differs Date of service: 10/30/17 Time of Service: 09:52 Care Management Progress Note S/O: Brendan is doing well this morning. He continues on IV Ampicillin Q6h. Per morning report Brendan will most likely need two weeks of IV antibiotics. CM spoke with Isela, [facility], today whom states that they can only manage Daily IV medications and would not be able to provide more than that. Isela also states that Brendan has 7 days of his Medicare swingbed benefit left at this time. A:Brendan is a 57 year old male admitted with sepsis related to a UTI. P:Brendan will potentially swing prior to returning to the [facility] when medically ready per provider. Plan to have him transfer by wheelchair van vs RCT. CM faxed update to Meg FIORE at the [facility] today. CM to continue to provide support to patient and care team ongoing discharge planning and disposition.
--- NOTE | 2017-10-30 10:52 | PT.INTREAT ---
PT Notes Inpatient Physical Therapy Treatment Note Date: 10/30/17 PRECAUTIONS: Standard precautions SUBJECTIVE: Pt sitting in chair, agreeable to therapy session. RN in room to assist with mobility. OBJECTIVE: General observation: telemetry, 02 monitor. Pt on room air. PAIN: no c/o pain BED MOBILITY/TRANSFERS * Pt wearing sneakers for all mobility requiring max A to don/doff Sit-stand: minAx1-2. Pt requires step by step cues for hand and foot placement to get into position for standing transfers. Pt stating to therapist I can't get up when directed to get into position to prepare for standing. Pt directing nursing and therapist how to assist him to standing position you have to lift me up. Stand-sit: SBA Chair-bed: SBA with bariatric FWW Sit-supine: Tricia for LE's into bed Rolling R: independent GAIT * Pt wearing sneakers for all gait mobility Assistive Device: bariatric FWW Weight bearing: as tolerated Assist: CGA Distance: 50ftx2 Deviation: wide stance and base of support, external rotation bilateral hips, decreased stride length, decreased tanya. Pt gait trained 50ft then required sitting rest break of 10min for breathing recovery due to exertional dyspnea. 02 sats 98% on room air, heart rate 104bpm decreased to 94bpm with rest. Pt gait trained 50ft x1 back to room and positioned in bed. Pt very fatigued after gait training completed. ASSESSMENT: Pt able to mobilize to gait training with bariatric FWW in hallways, deconditioned, fatigued easily. Pt has difficulty following instruction and receiving direction with transfers and mobility, choosing to ignore therapist questions when asked or becoming directive regarding how he wants to proceed telling therapist or nursing what to do. Safety is a concern with mobility due to this behavior, recommend keeping chair close with gait in hallways and 2 person assist at this time until patient is stronger with mobility to prevent falls or improves ability to follow directions. PLAN: Progress transfers Progress gait mobility TREATMENT TIME/CODES 35min TAx2 [id number] Yolanda Chang PT Intake Vital Signs 10/27/17 17:28 10/27/17 17:35 10/27/17 17:37 10/27/17 17:40 10/27/17 17:45 10/27/17 17:50 10/27/17 18:00 10/27/17 18:01 10/27/17 18:10 10/27/17 18:15 10/27/17 18:20 10/27/17 18:22 10/27/17 18:30 10/27/17 18:31 10/27/17 18:40 10/27/17 18:45 10/27/17 18:50 10/27/17 19:00 10/27/17 19:01 10/27/17 19:10 10/27/17 19:15 10/27/17 19:20 10/27/17 19:30 10/27/17 19:40 10/27/17 19:41 10/27/17 19:45 10/27/17 19:50 10/27/17 19:50 10/27/17 19:54 10/27/17 20:00 10/27/17 20:01 Height 6 ft 1 in 6 ft 1 in Weight 141.4 kg 141.4 kg 141.4 kg BP 170/58 H 203/123 H 200/85 H 191/154 H 170/58 H 168/53 H 151/61 H 136/92 H 153/61 H 147/59 H 132/59 L 135/54 L Position Respiration 32 H 25 H 28 H 31 H 24 23 26 H 29 H 24 26 H 26 H 24 25 H 20 25 H 21 29 H 28 H 22 31 H 29 H 20 25 H 32 H 29 H 37 H 38 H 37 H Pulse 110 H 108 H 104 H 111 H 105 H 106 H 105 H 102 H 101 H 98 H 98 H 96 H Temp 38.6 C H 39.7 C H Temp Source Skin Pulse Oximetry (%) 96 94 L 94 L 97 96 96 98 98 97 97 95 96 96 97 96 97 96 96 97 96 95 98 96 95 96 96 95 95 Oxygen Flow Rate 2 10/27/17 20:10 10/27/17 20:11 10/27/17 20:15 10/27/17 20:20 10/27/17 21:14 10/27/17 22:06 10/28/17 01:29 10/28/17 02:43 10/28/17 02:47 10/28/17 03:40 10/28/17 04:01 10/28/17 04:05 10/28/17 04:15 10/28/17 04:23 10/28/17 04:31 10/28/17 04:46 10/28/17 05:04 10/28/17 05:05 10/28/17 05:18 10/28/17 05:32 10/28/17 05:33 10/28/17 05:47 10/28/17 06:02 10/28/17 06:17 10/28/17 06:20 10/28/17 07:45 10/28/17 08:45 10/28/17 08:57 10/28/17 09:01 10/28/17 09:30 10/28/17 09:56 10/28/17 10:22 141.4 kg 134.7 kg 137/55 L 113/67 89/39 L 81/50 L 80/30 L 87/42 L 89/45 L 95/45 L 111/46 L 103/51 L 92/48 L 102/52 L 100/44 L 99/45 L 97/58 L 94/48 L 113/59 L 119/64 125/51 L 31 H 35 H 31 H 24 41 H 43 H 26 H 29 H 36 H 21 32 H 29 H 31 H 32 H 31 H 34 H 24 18 22 19 17 94 H 94 H 90 89 84 86 84 87 87 86 86 86 85 85 85 85 77 74 73 68 39.5 C H 39.3 C H 39.5 C H 39.2 C H 38.6 C H 38.4 C H 39.4 C H 39.2 C H 38.1 C H 36.5 C 36.8 C 36.3 C L Tympanic Tympanic Tympanic Tympanic Temporal Artery Scan Temporal Artery Scan Temporal Artery Scan Tympanic 97 97 98 93 L 90 L 95 0 0 2 2 10/28/17 10:40 10/28/17 11:12 10/28/17 12:10 10/28/17 12:48 10/28/17 12:50 10/28/17 13:57 10/28/17 14:01 10/28/17 14:20 10/28/17 14:30 10/28/17 14:40 10/28/17 14:50 10/28/17 15:00 10/28/17 15:01 10/28/17 15:10 10/28/17 15:20 10/28/17 15:30 10/28/17 15:40 10/28/17 15:50 10/28/17 16:00 10/28/17 16:01 10/28/17 16:15 10/28/17 16:15 10/28/17 16:20 10/28/17 16:40 10/28/17 16:50 10/28/17 17:02 10/28/17 18:01 10/28/17 19:00 10/28/17 20:00 10/28/17 20:39 10/28/17 21:00 10/28/17 22:00 106/58 L 115/63 135/75 139/70 149/75 H 151/74 H 110/52 L 136/57 L 188/66 H 12 18 21 16 15 17 16 18 18 18 18 15 20 24 15 19 19 17 18 19 19 17 22 19 21 24 26 H 66 60 61 63 64 66 67 70 82 36.3 C L 36.3 C L 36.2 C L 36.8 C 37.6 C H Temporal Artery Scan Temporal Artery Scan Temporal Artery Scan 100 99 0 0 10/28/17 23:07 10/28/17 23:08 10/28/17 23:34 10/29/17 00:34 10/29/17 01:00 10/29/17 02:00 10/29/17 03:07 10/29/17 06:00 10/29/17 07:00 10/29/17 09:30 10/29/17 09:30 10/29/17 09:48 10/29/17 11:10 10/29/17 11:21 10/29/17 14:29 10/29/17 14:30 10/29/17 14:51 10/29/17 15:00 10/29/17 15:54 10/29/17 16:30 10/29/17 16:33 10/29/17 17:00 10/29/17 17:06 10/29/17 18:00 10/29/17 19:34 10/29/17 21:44 10/29/17 22:00 10/29/17 23:00 10/29/17 23:16 10/30/17 00:40 10/30/17 00:40 10/30/17 01:16 135 kg 169/94 H 169/94 H 156/76 H 127/80 143/85 H 163/91 H 168/89 H 168/89 H 166/86 H 184/94 H 165/94 H 190/88 H 171/95 H 171/95 H 176/88 H Supine Supine Supine 26 H 16 22 22 24 20 18 15 19 17 18 22 24 16 17 17 20 25 H 25 H 19 18 75 75 74 83 76 70 66 65 68 74 70 73 68 70 67 37.9 C H 37.9 C H 35.6 C L 36.7 C 36.6 C 36.8 C 36.8 C 36.6 C 36.5 C 36.5 C 36.7 C Temporal Artery Scan Temporal Artery Scan Temporal Artery Scan Temporal Artery Scan Temporal Artery Scan Temporal Artery Scan Temporal Artery Scan Temporal Artery Scan 97 96 96 100 97 98 0 0 0 0 0 0 10/30/17 01:34 10/30/17 02:00 10/30/17 02:25 10/30/17 03:00 10/30/17 03:00 10/30/17 03:01 10/30/17 04:00 10/30/17 04:01 10/30/17 05:01 10/30/17 06:00 10/30/17 06:00 10/30/17 06:01 10/30/17 07:01 10/30/17 08:23 10/30/17 09:00 137 kg 189/97 H 187/95 H 187/95 H 182/90 H 182/90 H 195/111 H 187/99 H 187/89 H 187/95 H 191/94 H Supine 22 19 17 17 14 16 18 18 21 14 16 19 16 19 72 69 70 67 64 65 63 65 65 64 36.1 C L Temporal Artery Scan 95 98 0
--- NOTE | 2017-10-30 11:07 | PTTR_ITS ---
PT Notes Inpatient Physical Therapy Treatment Note Date: 10/30/17 PRECAUTIONS: Standard precautions SUBJECTIVE: Pt sitting in chair, agreeable to therapy session. RN in room to assist with mobility. OBJECTIVE: General observation: telemetry, 02 monitor. Pt on room air. PAIN: no c/o pain BED MOBILITY/TRANSFERS * Pt wearing sneakers for all mobility requiring max A to don/doff Sit-stand: minAx1-2. Pt requires step by step cues for hand and foot placement to get into position for standing transfers. Pt stating to therapist I can't get up when directed to get into position to prepare for standing. Pt directing nursing and therapist how to assist him to standing position you have to lift me up. Stand-sit: SBA Chair-bed: SBA with bariatric FWW Sit-supine: Tricia for LE's into bed Rolling R: independent GAIT * Pt wearing sneakers for all gait mobility Assistive Device: bariatric FWW Weight bearing: as tolerated Assist: CGA Distance: 50ftx2 Deviation: wide stance and base of support, external rotation bilateral hips, decreased stride length, decreased tanya. Pt gait trained 50ft then required sitting rest break of 10min for breathing recovery due to exertional dyspnea. 02 sats 98% on room air, heart rate 104bpm decreased to 94bpm with rest. Pt gait trained 50ft x1 back to room and positioned in bed. Pt very fatigued after gait training completed. ASSESSMENT: Pt able to mobilize to gait training with bariatric FWW in hallways , deconditioned, fatigued easily. Pt has difficulty following instruction and receiving direction with transfers and mobility, choosing to ignore therapist questions when asked or becoming directive regarding how he wants to proceed telling therapist or nursing what to do. Safety is a concern with mobility due to this behavior, recommend keeping chair close with gait in hallways and 2 person assist at this time until patient is stronger with mobility to prevent falls or improves ability to follow directions. PLAN: Progress transfers Progress gait mobility TREATMENT TIME/CODES 35min TAx2 1145 Yolanda Chang PT Intake Vital Signs 3 l l l l 10/27/17 17:28 l l 10/27/17 17:35 l l 10/27/17 17:37 l l 10/27/17 17:40 l l 10/27/17 17:45 l l 10/27/17 17:50 l l 10/27/17 18:00 l l 10/27/17 18:01 l l 10/27/17 18:10 l l 10/27/17 18:15 l l 10/27/17 18:20 l l 10/27/17 18:22 l l 10/27/17 18:30 l l 10/27/17 18:31 l l 10/27/17 18:40 l l 10/27/17 18:45 l l 10/27/17 18:50 l l 10/27/17 19:00 l l 10/27/17 19:01 l l 10/27/17 19:10 l l 10/27/17 19:15 l l 10/27/17 19:20 l l 10/27/17 19:30 l l 10/27/17 19:40 l l 10/27/17 19:41 l l 10/27/17 19:45 l l 10/27/17 19:50 l l 10/27/17 19:50 l l 10/27/17 19:54 l l 10/27/17 20:00 l l 10/27/17 20:01 l l 10/27/17 20:10 l l 10/27/17 20:11 l l 10/27/17 20:15 l l 10/27/17 20:20 l l 10/27/17 21:14 l l 10/27/17 22:06 l l 10/28/17 01:29 l l 10/28/17 02:43 l l 10/28/17 02:47 l l 10/28/17 03:40 l l 10/28/17 04:01 l l 10/28/17 04:05 l l 10/28/17 04:15 l l 10/28/17 04:23 l l 10/28/17 04:31 l l 10/28/17 04:46 l l 10/28/17 05:04 l l 10/28/17 05:05 l l 10/28/17 05:18 l l 10/28/17 05:32 l l 10/28/17 05:33 l l 10/28/17 05:47 l l 10/28/17 06:02 l l 10/28/17 06:17 l l 10/28/17 06:20 l l 10/28/17 07:45 l l 10/28/17 08:45 l l 10/28/17 08:57 l l 10/28/17 09:01 l l 10/28/17 09:30 l l 10/28/17 09:56 l l 10/28/17 10:22 l l 10/28/17 10:40 l l 10/28/17 11:12 l l 10/28/17 12:10 l l 10/28/17 12:48 l l 10/28/17 12:50 l l 10/28/17 13:57 l l 10/28/17 14:01 l l 10/28/17 14:20 l l 10/28/17 14:30 l l 10/28/17 14:40 l l 10/28/17 14:50 l l 10/28/17 15:00 l l 10/28/17 15:01 l l 10/28/17 15:10 l l 10/28/17 15:20 l l 10/28/17 15:30 l l 10/28/17 15:40 l l 10/28/17 15:50 l l 10/28/17 16:00 l l 10/28/17 16:01 l l 10/28/17 16:15 l l 10/28/17 16:15 l l 10/28/17 16:20 l l 10/28/17 16:40 l l 10/28/17 16:50 l l 10/28/17 17:02 l l 10/28/17 18:01 l l 10/28/17 19:00 l l 10/28/17 20:00 l l 10/28/17 20:39 l l 10/28/17 21:00 l l 10/28/17 22:00 l l 10/28/17 23:07 l l 10/28/17 23:08 l l 10/28/17 23:34 l l 10/29/17 00:34 l l 10/29/17 01:00 l l 10/29/17 02:00 l l 10/29/17 03:07 l l 10/29/17 06:00 l l 10/29/17 07:00 l l 10/29/17 09:30 l l 10/29/17 09:30 l l 10/29/17 09:48 l l 10/29/17 11:10 l l 10/29/17 11:21 l l 10/29/17 14:29 l l 10/29/17 14:30 l l 10/29/17 14:51 l l 10/29/17 15:00 l l 10/29/17 15:54 l l 10/29/17 16:30 l l 10/29/17 16:33 l l 10/29/17 17:00 l l 10/29/17 17:06 l l 10/29/17 18:00 l l 10/29/17 19:34 l l 10/29/17 21:44 l l 10/29/17 22:00 l l 10/29/17 23:00 l l 10/29/17 23:16 l l 10/30/17 00:40 l l 10/30/17 00:40 l l 10/30/17 01:16 l l 10/30/17 01:34 l l 10/30/17 02:00 l l 10/30/17 02:25 l l 10/30/17 03:00 l l 10/30/17 03:00 l l 10/30/17 03:01 l l 10/30/17 04:00 l l 10/30/17 04:01 l l 10/30/17 05:01 l l 10/30/17 06:00 l l 10/30/17 06:00 l l 10/30/17 06:01 l l 10/30/17 07:01 l l 10/30/17 08:23 l l 10/30/17 09:00 l l Height 6 ft 1 in 6 ft 1 in l l Weight 141.4 kg 141.4 kg 141.4 kg 141.4 kg 134.7 kg 135 kg 137 kg l l BP 170/58 H 203/123 H 200/85 H 191/154 H 170/58 H 168/53 H 151/61 H 136/92 H 153/61 H 147/59 H 132/59 L 135/54 L 137/55 L 113/67 89/39 L 81/50 L 80/30 L 87/42 L 89/45 L 95/45 L 111/46 L 103/51 L 92 /48 L 102/52 L 100/44 L 99/45 L 97/58 L 94/48 L 113/ 59 L 119/64 125/51 L 106/58 L 115/63 135/75 139/70 149/75 H 151/74 H 110/52 L 136/57 L 188/66 H 169/94 H 169/94 H 156/76 H 127/80 143/85 H 163/91 H 168/89 H 168/89 H 166/86 H 184/94 H 165/94 H 190/88 H 171/95 H 171/95 H 176/88 H 189/97 H 187/95 H 187/95 H 182/90 H 182/90 H 195/ 111 H 187/99 H 187/89 H 187/95 H 191/94 H l l Position Supine Supine Supine Supine l l Respiration 32 H 25 H 28 H 31 H 24 23 26 H 29 H 24 26 H 26 H 24 25 H 20 25 H 21 29 H 28 H 22 31 H 29 H 20 25 H 32 H 29 H 37 H 38 H 37 H 31 H 35 H 31 H 24 41 H 43 H 26 H 29 H 36 H 21 32 H 29 H 31 H 32 H 31 H 34 H 24 18 22 19 17 12 18 21 16 15 17 16 18 18 18 18 15 20 24 15 19 19 17 18 19 19 17 22 19 21 24 26 H 26 H 16 22 22 24 20 18 15 19 17 18 22 24 16 17 17 20 25 H 25 H 19 18 22 19 17 17 14 16 18 18 21 14 16 19 16 19 l l Pulse 110 H 108 H 104 H 111 H 105 H 106 H 105 H 102 H 101 H 98 H 98 H 96 H 94 H 94 H 90 89 84 86 84 87 87 86 86 86 85 85 85 85 77 74 73 68 66 60 61 63 64 66 67 70 82 75 75 74 83 76 70 66 65 68 74 70 73 68 70 67 72 69 70 67 64 65 63 65 65 64 l l Temp 38.6 C H 39.7 C H 39.5 C H 39.3 C H 39.5 C H 39.2 C H 38.6 C H 38.4 C H 39.4 C H 39.2 C H 38.1 C H 36.5 C 36.8 C 36.3 C L 36.3 C L 36.3 C L 36.2 C L 36.8 C 37.6 C H 37.9 C H 37.9 C H 35.6 C L 36.7 C 36.6 C 36.8 C 36.8 C 36.6 C 36.5 C 36.5 C 36.7 C 36.1 C L l l Temp Source Skin Tympanic Tympanic Tympanic Tympanic Temporal Artery Scan Temporal Artery Scan Temporal Artery Scan Tympanic Temporal Artery Scan Temporal Artery Scan Temporal Artery Scan Temporal Artery Scan Temporal Artery Scan Temporal Artery Scan Temporal Artery Scan Temporal Artery Scan Temporal Artery Scan Temporal Artery Scan Temporal Artery Scan Temporal Artery Scan l l Pulse Oximetry (%) 96 94 L 94 L 97 96 96 98 98 97 97 95 96 96 97 96 97 96 96 97 96 95 98 96 95 96 96 95 95 97 97 98 93 L 90 L 95 100 99 97 96 96 100 97 98 95 98 l l Oxygen Flow Rate 2 0 0 2 2 0 0 0 0 0 0 0 0 0
--- NOTE | 2017-10-30 12:08 | PGE_ITS ---
Date of service: 10/30/17 Time of Service: 11:58 Assessment and Plan (1) Sepsis: Current visit: Yes Status: Acute Appears resolved. Mr. Corley as evidence of enterococcus faecalis UTI that is sensitive to ampicillin, as well as blood cultures positive for group C strep as etiology. While chest x-ray shows possible pneumonia versus mild CHF, clinically the patient does not appear to have any pulmonary symptoms. Discussed case with infectious disease at [facility]. Vancomycin and Zosyn were discontinued after 2 days of treated, and patient was initiated on renally dosed Ampicillin, now day #2. Remains afebrile. Please note that the patient is currently on stress dose steroids ? Mr. Corley is likely adrenally insufficient as he is on chronic prednisone use. Will attempt to wean back to oral prednisone soon once infection is well controlled. (2) JESUS (acute kidney injury): Current visit: Yes Status: Acute Evidence of acute kidney injury superimposed on chronic kidney disease. This is in the setting of acute illness and sepsis, with a transient decrease in urinary output. Continued hyperkalemia by labs this morning with slight improvement in creatinine. Current creatinine is at 2.81 down from values of 3 and 2.96 yesterday, with a baseline of approximately 1.5-2. Monitor renal function carefully, avoid nephrotoxins, and renally dose medications when appropriate. As the patient is overall volume overloaded and has hyperkalemia will continue low dose IV furosemide and monitor renal function carefully. Continue Kayexalate and lasix for hyperkalemia, and repeat BMP this afternoon. (3) Diabetes mellitus type 2, controlled: Current visit: No Status: Chronic Continue basal insulin, but changed to resistance sliding scale as the patient's blood sugars are grossly elevated. This is in the setting of both infection as well as stress dose steroid use. Decrease steroids today and monitor. Consider increase in basal insulin if continued hyperglycemia. (4) UTI (urinary tract infection) due to Enterococcus: Current visit: No Status: Acute UTI with evidence of pansensitive enterococcus faecalis. Ampicillin initiated yesterday. Day #4 of antibiotics. (5) Anxiety: Current visit: No Status: Chronic Currently on both SNRI as well as SSRI therapy (6) Hypertension: Current visit: No Status: Chronic Initially hypotensive in the setting of sepsis, now appears to be hypertensive. IV fluids discontinued. Continue and increase dose of amlodipine and metoprolol soon. We will continue to hold ARYA inhibitor in the setting of acute kidney injury on CKD. Monitor and consider initiation of additional agent if needed. Also on IV lasix. (7) Chronic pain: Current visit: No Status: Chronic Continue current pain regimen. (8) CAD (coronary artery disease): Current visit: No Status: Chronic Noted. Appears quiescent. (9) Rheumatoid arthritis: Current visit: No Status: Chronic Maintained on Humira as an outpatient, as well as daily prednisone therapy. (10) Crohns disease: Current visit: No Status: Chronic Status post total colectomy, with ostomy in place that appears to be functioning well. (11) Chronic insomnia: Current visit: No Status: Chronic Initiated nightly mirtazapine. (12) Anemia: Current visit: No Status: Acute Hemoglobin low but stable, with further workup showing a low iron, low TIBC, and normal ferritin at 124, indicating a likely mixed etiology for the patient's anemia. B12 and folic acid were also checked and normal. (13) Hypothyroidism: Current visit: No Status: Chronic Continue replacement therapy. (14) DVT prophylaxis: Current visit: Yes Status: Acute Continue subcutaneous heparin. Subjective Interval history since last seen: 57-year-old resident at the [facility] admitted from [facility] on October 27 with a diagnosis of bacteremia. Mr. Corley is a chronic resident at a nursing facility due to his significant disability from rheumatoid arthritis. He was sent in for further evaluation from the [facility] to [facility] ED due to development of high fevers, with further workup showing evidence of a significant leukocytosis, elevated lactate, and eventual development of hypotension. Initially attributed to potential lower extremity cellulitis, the patient was found to have evidence of a UTI and possible findings of pneumonia by chest x-ray, as well as excoriations in his skin (lower extremities) as potential nidus for infection. Mr. Corley has been steadily improving and remains afebrile, now for over 48 hours. He still has a leukocytosis, but with dramatic improvement since prior. Continued evidence of JESUS with hyperkalemia, but with slight improvement in creatinine this morning. No overnight events reported. Patient has no complaints today. Exam Const General: cooperative, not healthy appearing, no acute distress, anxious, cushingoid and disheveled Nutritional Appearance: obese Orientation: alert and oriented to person [facility] Head: normal to inspection Ears: external ears normal General nose exam: external nose normal Mouth: abnormal oral mucosae (Mucosa is dry) and moist mucous membranes Teeth and gingiva: abnormal tooth or associated gingiva and caries (With broken and decayed) Eyes General: appearance normal, both eyes and all related structures Neck Neck: normal visual inspection and anterior neck swelling (Difficult to discern neck features because of swelling/adipose tissue) Chest Chest: normal inspection of the chest Resp Effort & Inspection: normal respiratory effort and able to speak in complete sentences Auscultation: clear to auscultation bilaterally ( ) Cardio Rate: regular rate Rhythm: regular rhythm Heart Sounds: S1 abnormal (Distant heart sounds, difficult to discern) GI Inspection: normal to inspection Palpation: soft and nontender Rectal Exam: visual inspection normal Skin General skin exam: no rashes or lesions noted (Chronic b/l LE hyperpigmentation) Neuro General: alert and oriented x3 Extrem General: edema (4+ edema both lower extremities, with chronic appearing hyperpigmentation R>L) Laterality: bilateral Psych Appearance: disheveled Mental Status: mental status grossly normal Speech and Movement: delayed speech Mood: anxious mood Attitude: guarded Objective Objective Clinical Data: Abnormal lab results 10/29/17 10/29/17 10/30/17 Range/Units 14:25 20:30 04:15 WBC (4.4-10.8) k/cumm RBC (4.50-6.00) m/cumm Hgb (13.5-17.5) g/dL Hct (40.0-50.0) % MCV (80-95) fL MCH (27.0-33.0) pg MCHC (32.0-36.0) g/dL RDW (11.8-14.1) % Plt Count (130-400) x1000/uL Absolute Neutrophils (1.2-6.7) k/cumm Absolute Lymphocytes (1.2-3.4) k/cumm Sodium 133 L (136-145) mmol/L Potassium 6.0 H* 6.5 H* 6.1 H* (3.5-5.1) mmol/L Chloride 108 H (98-107) mmol/L BUN 56 H 64 H (7-18) mg/dL Creatinine 3.01 H 2.81 H (0.70-1.30) mg/dL Glucose 448 H 347 H D (70-100) mg/dL Calcium 8.2 L (8.5-10.1) mg/dL AST 11 L (15-37) U/L Alkaline Phosphatase 228 H (46-116) U/L Albumin 2.1 L (3.4-5.0) g/dL 10/30/17 Range/Units 04:15 WBC 15.31 H D (4.4-10.8) k/cumm RBC 4.24 L (4.50-6.00) m/cumm Hgb 8.4 L (13.5-17.5) g/dL Hct 28.3 L (40.0-50.0) % MCV 66.7 L (80-95) fL MCH 19.8 L (27.0-33.0) pg MCHC 29.7 L (32.0-36.0) g/dL RDW 18.7 H (11.8-14.1) % Plt Count 473 H (130-400) x1000/uL Absolute Neutrophils 14.21 H (1.2-6.7) k/cumm Absolute Lymphocytes 0.57 L (1.2-3.4) k/cumm Sodium (136-145) mmol/L Potassium (3.5-5.1) mmol/L Chloride (98-107) mmol/L BUN (7-18) mg/dL Creatinine (0.70-1.30) mg/dL Glucose (70-100) mg/dL Calcium (8.5-10.1) mg/dL AST (15-37) U/L Alkaline Phosphatase (46-116) U/L Albumin (3.4-5.0) g/dL Vital Signs Temp 37.1 C 10/30/17 11:30 Pulse 64 10/30/17 08:23 Resp 19 10/30/17 09:00 BP 191/94 H 10/30/17 08:23 Pulse Ox 97 10/30/17 07:05 Intake & Output 10/29/17 10/29/17 10/30/17 11:59 23:59 11:59 Intake Total 3855 / 3855 1375 / 1375 250 / 250 Output Total 1080 / 1080 2060 / 2060 1600 / 1600 Balance 2775 / 2775 -685 / -685 -1350 / -1350 Weight 135 kg 137 kg Intake: IV 2425 / 2425 361 / 361 100 / 100 Oral 1430 / 1430 1014 / 1014 150 / 150 Output: Urine 675 / 675 1105 / 1105 850 / 850 Stool 405 / 405 955 / 955 750 / 750 Other: Urine Color Yellow Yellow Yellow Urine Appearance Clear Clear Clear Comment Downing in place draining 30-40cc/hr. Downing intact and draining clear yellow urine. Downing intact and draining clear yellow urine. Stool Occult Blood Negative Voiding Methods Indwelling Catheter Indwelling Catheter Laboratory Results WBC 15.31 k/cumm (4.4-10.8) H D 10/30/17 04:15 RBC 4.24 m/cumm (4.50-6.00) L 10/30/17 04:15 Hgb 8.4 g/dL (13.5-17.5) L 10/30/17 04:15 Hct 28.3 % (40.0-50.0) L 10/30/17 04:15 MCV 66.7 fL (80-95) L 10/30/17 04:15 MCH 19.8 pg (27.0-33.0) L 10/30/17 04:15 MCHC 29.7 g/dL (32.0-36.0) L 10/30/17 04:15 RDW 18.7 % (11.8-14.1) H 10/30/17 04:15 Plt Count 473 x1000/uL (130-400) H 10/30/17 04:15 MPV 10.4 fL (8.0-11.0) 10/30/17 04:15 Immature Gran % 0.5 10/30/17 04:15 Neutrophils % 92.8 10/30/17 04:15 Lymphocytes % 3.7 10/30/17 04:15 Monocytes % 2.9 10/30/17 04:15 Eosinophils % 0.0 10/30/17 04:15 Basophils % 0.1 10/30/17 04:15 Absolute Neutrophils 14.21 k/cumm (1.2-6.7) H 10/30/17 04:15 Band Neutrophils 21.0 % 10/28/17 06:30 Absolute Lymphocytes 0.57 k/cumm (1.2-3.4) L 10/30/17 04:15 Absolute Monocytes 0.44 k/cumm (0.11-0.7) 10/30/17 04:15 Absolute Eosinophils 0.00 k/cumm (0.0-0.7) 10/30/17 04:15 Absolute Basophils 0.02 k/cumm (0.0-0.2) 10/30/17 04:15 Metamyelocytes 1.0 % 10/28/17 06:30 Differential Comment Comment 10/29/17 06:40 RBC Morphology See below 10/30/17 04:15 Polychromasia Present 10/29/17 06:40 Hypochromasia 2+ 10/30/17 04:15 Poikilocytosis 1+ 10/30/17 04:15 Basophilic Stippling Present 10/28/17 06:30 Anisocytosis 2+ 10/30/17 04:15 Microcytosis 2+ 10/30/17 04:15 Ovalocytes 2+ 10/29/17 06:40 PT 10.9 sec (9.3-10.8) H 10/27/17 18:02 INR 1.1 (1.0-3.5) 10/27/17 18:02 Sodium 136 mmol/L (136-145) 10/30/17 04:15 Potassium 6.1 mmol/L (3.5-5.1) H* 10/30/17 04:15 Chloride 108 mmol/L (98-107) H 10/30/17 04:15 Carbon Dioxide 24.3 mmol/L (21.0-32.0) 10/30/17 04:15 Anion Gap 3.7 mmol/L (3-11) 10/30/17 04:15 BUN 64 mg/dL (7-18) H 10/30/17 04:15 Creatinine 2.81 mg/dL (0.70-1.30) H 10/30/17 04:15 Estimated GFR/1.73 m2 23.29 (mL/min/1.73m2) 10/30/17 04:15 Glucose 347 mg/dL (70-100) H D 10/30/17 04:15 Hemoglobin A1c 6.2 % (4.5-6.2) 10/28/17 06:30 Lactate 0.9 mmol/L (0.6-1.4) 10/28/17 09:48 Calcium 8.6 mg/dL (8.5-10.1) 10/30/17 04:15 Iron 8 ug/dL (50-175) L 10/29/17 06:40 TIBC 245 ug/dL (250-450) L 10/29/17 06:40 Transferrin % Sat 3 % (20-55) L 10/29/17 06:40 Ferritin 124 ng/mL (8-388) 10/29/17 06:40 Total Bilirubin 0.2 mg/dL (0.2-1.0) 10/30/17 04:15 AST 11 U/L (15-37) L 10/30/17 04:15 ALT 19 U/L (12-78) 10/30/17 04:15 Alkaline Phosphatase 228 U/L (46-116) H 10/30/17 04:15 NT-Pro-B Natriuret Pep 4180 pg/mL (-299) H 10/28/17 06:30 Total Protein 7.4 g/dL (6.4-8.2) 10/30/17 04:15 Albumin 2.1 g/dL (3.4-5.0) L 10/30/17 04:15 Vitamin B12 912 pg/mL (193-986) 10/29/17 06:40 Folate 14.1 ng/mL (8.6-20.0) 10/29/17 06:40 Urine Color Yellow (Yellow) 10/27/17 18:10 Urine Clarity Clear 10/27/17 18:10 Urine pH 5.5 (5-8) 10/27/17 18:10 Ur Specific [place] 1.020 (1.005-1.025) 10/27/17 18:10 Urine Protein >=300 mg/dL (Negative) H 10/27/17 18:10 Urine Ketones Negative mg/dL (Negative) 10/27/17 18:10 Urine Blood Small (Negative) H 10/27/17 18:10 Urine Nitrite Negative (Negative) 10/27/17 18:10 Urine Bilirubin Negative (Negative) 10/27/17 18:10 Urine Urobilinogen 0.2 EU/dL (Up TO 0.2) 10/27/17 18:10 Ur Leukocyte Esterase Trace (Negative) H 10/27/17 18:10 Urine RBC 10-20 (0-2) H 10/27/17 18:10 Urine WBC 20-50 HPF (0-5) 10/27/17 18:10 Ur Epithelial Cells Few HPF (Negative) 10/27/17 18:10 Urine Crystals Negative HPF (Negative) 10/27/17 18:10 Urine Bacteria Moderate HPF (Negative) 10/27/17 18:10 Urine Casts 0-2 coarse granular LPF (Negative) 10/27/17 18:10 Urine Mucus Negative (Negative) 10/27/17 18:10 Urine Other Few transitional (Negative) 10/27/17 18:10 Ur Culture Indicated? Yes 10/27/17 18:10 Urine Glucose Negative mg/dL (Negative) 10/27/17 18:10
[2017-10-30] MEDS: Nystatin POWDER 15 GM JAR TP ×3 (12:14→20:10)
[2017-10-30 14:40] LABS: Anion Gap 8.6 mmol/L (3-11); BUN 67 mg/dL (7-18); CO2 20.4 mmol/L (21.0-32.0); CREATININE 2.72 mg/dL (0.70-1.30); Calcium 8.1 mg/dL (8.5-10.1); Chloride 107 mmol/L (98-107); Estimated GFR 24.19 (mL/min/1.73m2); Glucose 432 mg/dL (70-100); Potassium 5.4 mmol/L (3.5-5.1); Sodium 136 mmol/L (136-145)
[2017-10-30] MEDS: Metoprolol 25 MG TAB PO (18:31)
[2017-10-30] MEDS: hydrALAZINE 20 MG/ML VIAL 10 MG IVP ×2 (18:55→21:26)
[2017-10-30] MEDS: methylPREDNISolone SUCC 40 MG VIAL IVP (20:08)
[2017-10-30] MEDS: Sertraline 50 MG TAB PO (20:09)
[2017-10-30] MEDS: risperiDONE 1 MG TAB 3 MG PO (21:26)
[2017-10-30] MEDS: Mirtazapine 15 MG TAB PO (21:26)
[2017-10-30] MEDS: Acetaminophen 325 MG TAB PO (23:02)
[2017-10-31] VITALS (31 sets, daily range): BP systolic 132–195; BP diastolic 66–104; PULSE 56–89; RESP 14–33; TEMP 36.3–37.6; O2SAT 93–96
[2017-10-31] MEDS: hydrALAZINE 20 MG/ML VIAL IVP (00:34)
[2017-10-31 00:36] LABS: HCT 27.8 % (40.0-50.0); HGB 8.4 g/dL (13.5-17.5)
[2017-10-31] MEDS: Normal Saline Flush 10 ML SYR IVP ×4 (00:39→20:44)
[2017-10-31] MEDS: ALPRAZolam 0.25 MG TAB PO (02:07)
[2017-10-31] MEDS: AMPICILLIN SODIUM 2 GM in Normal Saline 100 ML IVPB (02:07)
[2017-10-31] MEDS: hydrALAZINE 20 MG/ML VIAL 10 MG IVP ×4 (04:30→22:32)
[2017-10-31] MEDS: Levothyroxine 50 MCG TAB PO (05:01)
[2017-10-31] MEDS: Metoprolol 25 MG TAB PO (05:01)
[2017-10-31 07:24] LABS: Abs Immature Grans 0.17 k/cumm (0.0-0.09); HCT 28.7 % (40.0-50.0); HGB 8.3 g/dL (13.5-17.5); Mean Corp. HGB Concentration 28.9 g/dL (32.0-36.0); Mean Corpuscular Hemoglobin 19.1 pg (27.0-33.0); Mean Corpuscular Volume 66.1 fL (80-95); Mean Platelet Volume 9.9 fL (8.0-11.0); Platelet Count 480 x1000/uL (130-400); RBC 4.34 m/cumm (4.50-6.00); RBC Distribution Width 18.7 % (11.8-14.1); White Blood Cell Count 15.69 k/cumm (4.4-10.8)
[2017-10-31 07:39] LABS: ALT 17 U/L (12-78); AST 13 U/L (15-37); Albumin 2.3 g/dL (3.4-5.0); Alkaline Phosphatase 203 U/L (46-116); Anion Gap 7.6 mmol/L (3-11); BUN 70 mg/dL (7-18); Bilirubin, Total 0.4 mg/dL (0.2-1.0); CO2 23.4 mmol/L (21.0-32.0); CREATININE 2.32 mg/dL (0.70-1.30); Calcium 8.5 mg/dL (8.5-10.1); Chloride 110 mmol/L (98-107); Estimated GFR 29.06 (mL/min/1.73m2); Glucose 156 mg/dL (70-100); Potassium 4.7 mmol/L (3.5-5.1); Sodium 141 mmol/L (136-145); Total Protein 7.2 g/dL (6.4-8.2)
[2017-10-31] MEDS: Nystatin POWDER 15 GM JAR TP ×3 (08:00→20:42)
[2017-10-31 08:08] LABS: Absolute Lymphocyte Count 1.57 k/cumm (1.2-3.4); Absolute Neutrophil Count 13.96 k/cumm (1.2-6.7); Atypical Lymphocytes % 0
[2017-10-31 08:09] LABS: Absolute Monocyte Count 0.16 k/cumm (0.11-0.7); Anisocytosis 2+; Diff Comment Manual Differential; Hypochromasia 1+; Microcytosis 2+
[2017-10-31] MEDS: Insulin Aspart 300 UNITS/3 ML PEN SC ×3 (08:24→17:07)
[2017-10-31] MEDS: methylPREDNISolone SUCC 40 MG VIAL IVP (10:42)
--- NOTE | 2017-10-31 10:43 | PT.INTREAT ---
PT Notes Date: 10/31/17 PRECAUTIONS: Standard precautions SUBJECTIVE: Pt sitting in chair, when asked if he wanted to walk and participate in therapy session, pt did not answer therapist. Pt allowed RN and PT to change gown, and get ready for mobility training, but once up patient turned and sat on the bed with no notice and refused to partipate in PT stating I am too tired. RN spoke with patient about communicating intentions prior to movements so patient and team can be on the same page, pt did not reply. OBJECTIVE: General observation: telemetry, 02 monitor, sara PAIN: no c/o pain BED MOBILITY/TRANSFERS * Pt wearing sneakers for all mobility requiring max A to don/doff Sit-stand: minAx1-2. Pt r Chair-bed: SBA with bariatric FWW Stand-sit: SBA Sit-supine: CGA for LE's into bed GAIT * Pt wearing sneakers for all gait mobility Assistive Device: bariatric FWW Weight bearing: as tolerated Assist: CGA Distance: Therapist attempted to initiate gait training, pt took steps from chair to bed then sat on bed and refused gait. Pt stood to take 4 side steps to the left to position higher in bed prior to lying down. ASSESSMENT: Pt with decreased communication today, decreased motivation to participate in therapy session, reports feeling tired. Will continue attempts. PLAN: Progress transfers Progress gait mobility TREATMENT TIME/CODES 10min TAx1 10:40 Yolanda Chang PT Intake Vital Signs 10/27/17 17:28 10/27/17 17:35 10/27/17 17:37 10/27/17 17:40 10/27/17 17:45 10/27/17 17:50 10/27/17 18:00 10/27/17 18:01 10/27/17 18:10 10/27/17 18:15 10/27/17 18:20 10/27/17 18:22 10/27/17 18:30 10/27/17 18:31 10/27/17 18:40 10/27/17 18:45 10/27/17 18:50 10/27/17 19:00 10/27/17 19:01 10/27/17 19:10 10/27/17 19:15 10/27/17 19:20 10/27/17 19:30 10/27/17 19:40 10/27/17 19:41 10/27/17 19:45 10/27/17 19:50 10/27/17 19:50 10/27/17 19:54 10/27/17 20:00 10/27/17 20:01 Height 6 ft 1 in 6 ft 1 in Weight 141.4 kg 141.4 kg 141.4 kg BP 170/58 H 203/123 H 200/85 H 191/154 H 170/58 H 168/53 H 151/61 H 136/92 H 153/61 H 147/59 H 132/59 L 135/54 L Position Respiration 32 H 25 H 28 H 31 H 24 23 26 H 29 H 24 26 H 26 H 24 25 H 20 25 H 21 29 H 28 H 22 31 H 29 H 20 25 H 32 H 29 H 37 H 38 H 37 H Pulse 110 H 108 H 104 H 111 H 105 H 106 H 105 H 102 H 101 H 98 H 98 H 96 H Temp 38.6 C H 39.7 C H Temp Source Skin Pulse Oximetry (%) 96 94 L 94 L 97 96 96 98 98 97 97 95 96 96 97 96 97 96 96 97 96 95 98 96 95 96 96 95 95 Oxygen Flow Rate 2 10/27/17 20:10 10/27/17 20:11 10/27/17 20:15 10/27/17 20:20 10/27/17 21:14 10/27/17 22:06 10/28/17 01:29 10/28/17 02:43 10/28/17 02:47 10/28/17 03:40 10/28/17 04:01 10/28/17 04:05 10/28/17 04:15 10/28/17 04:23 10/28/17 04:31 10/28/17 04:46 10/28/17 05:04 10/28/17 05:05 10/28/17 05:18 10/28/17 05:32 10/28/17 05:33 10/28/17 05:47 10/28/17 06:02 10/28/17 06:17 10/28/17 06:20 10/28/17 07:45 10/28/17 08:45 10/28/17 08:57 10/28/17 09:01 10/28/17 09:30 10/28/17 09:56 10/28/17 10:22 141.4 kg 134.7 kg 137/55 L 113/67 89/39 L 81/50 L 80/30 L 87/42 L 89/45 L 95/45 L 111/46 L 103/51 L 92/48 L 102/52 L 100/44 L 99/45 L 97/58 L 94/48 L 113/59 L 119/64 125/51 L 31 H 35 H 31 H 24 41 H 43 H 26 H 29 H 36 H 21 32 H 29 H 31 H 32 H 31 H 34 H 24 18 22 19 17 94 H 94 H 90 89 84 86 84 87 87 86 86 86 85 85 85 85 77 74 73 68 39.5 C H 39.3 C H 39.5 C H 39.2 C H 38.6 C H 38.4 C H 39.4 C H 39.2 C H 38.1 C H 36.5 C 36.8 C 36.3 C L Tympanic Tympanic Tympanic Tympanic Temporal Artery Scan Temporal Artery Scan Temporal Artery Scan Tympanic 97 97 98 93 L 90 L 95 0 0 2 2 10/28/17 10:40 10/28/17 11:12 10/28/17 12:10 10/28/17 12:48 10/28/17 12:50 10/28/17 13:57 10/28/17 14:01 10/28/17 14:20 10/28/17 14:30 10/28/17 14:40 10/28/17 14:50 10/28/17 15:00 10/28/17 15:01 10/28/17 15:10 10/28/17 15:20 10/28/17 15:30 10/28/17 15:40 10/28/17 15:50 10/28/17 16:00 10/28/17 16:01 10/28/17 16:15 10/28/17 16:15 10/28/17 16:20 10/28/17 16:40 10/28/17 16:50 10/28/17 17:02 10/28/17 18:01 10/28/17 19:00 10/28/17 20:00 10/28/17 20:39 10/28/17 21:00 10/28/17 22:00 106/58 L 115/63 135/75 139/70 149/75 H 151/74 H 110/52 L 136/57 L 188/66 H 12 18 21 16 15 17 16 18 18 18 18 15 20 24 15 19 19 17 18 19 19 17 22 19 21 24 26 H 66 60 61 63 64 66 67 70 82 36.3 C L 36.3 C L 36.2 C L 36.8 C 37.6 C H Temporal Artery Scan Temporal Artery Scan Temporal Artery Scan 100 99 0 0 10/28/17 23:07 10/28/17 23:08 10/28/17 23:34 10/29/17 00:34 10/29/17 01:00 10/29/17 02:00 10/29/17 03:07 10/29/17 06:00 10/29/17 07:00 10/29/17 09:30 10/29/17 09:30 10/29/17 09:48 10/29/17 11:10 10/29/17 11:21 10/29/17 14:29 10/29/17 14:30 10/29/17 14:51 10/29/17 15:00 10/29/17 15:54 10/29/17 16:30 10/29/17 16:33 10/29/17 17:00 10/29/17 17:06 10/29/17 18:00 10/29/17 19:34 10/29/17 21:44 10/29/17 22:00 10/29/17 23:00 10/29/17 23:16 10/30/17 00:40 10/30/17 00:40 10/30/17 01:16 135 kg 169/94 H 169/94 H 156/76 H 127/80 143/85 H 163/91 H 168/89 H 168/89 H 166/86 H 184/94 H 165/94 H 190/88 H 171/95 H 171/95 H 176/88 H Supine Supine Supine 26 H 16 22 22 24 20 18 15 19 17 18 22 24 16 17 17 20 25 H 25 H 19 18 75 75 74 83 76 70 66 65 68 74 70 73 68 70 67 37.9 C H 37.9 C H 35.6 C L 36.7 C 36.6 C 36.8 C 36.8 C 36.6 C 36.5 C 36.5 C 36.7 C Temporal Artery Scan Temporal Artery Scan Temporal Artery Scan Temporal Artery Scan Temporal Artery Scan Temporal Artery Scan Temporal Artery Scan Temporal Artery Scan 97 96 96 100 97 98 0 0 0 0 0 0 10/30/17 01:34 10/30/17 02:00 10/30/17 02:25 10/30/17 03:00 10/30/17 03:00 10/30/17 03:01 10/30/17 04:00 10/30/17 04:01 10/30/17 05:01 10/30/17 06:00 10/30/17 06:00 10/30/17 06:01 10/30/17 07:01 10/30/17 07:05 10/30/17 08:23 10/30/17 09:00 10/30/17 09:15 10/30/17 10:00 10/30/17 11:00 10/30/17 11:30 10/30/17 12:00 10/30/17 12:08 10/30/17 12:15 10/30/17 13:30 10/30/17 14:26 10/30/17 15:15 10/30/17 15:17 10/30/17 15:18 10/30/17 16:00 10/30/17 16:01 10/30/17 17:00 10/30/17 18:31 137 kg 189/97 H 187/95 H 187/95 H 182/90 H 182/90 H 195/111 H 187/99 H 187/89 H 187/95 H 191/94 H 171/77 H 208/108 H 193/93 H 200/90 H 200/90 H 184/86 H 193/87 H Supine Supine Supine Sitting 22 19 17 17 14 16 18 18 21 14 16 19 16 19 17 19 14 19 21 19 20 21 19 17 19 18 19 72 69 70 67 64 65 63 65 65 64 72 89 78 68 71 67 69 36.1 C L 36.5 C 37.1 C 36.5 C 36.6 C Temporal Artery Scan Temporal Artery Scan Tympanic Temporal Artery Scan Temporal Artery Scan 95 98 97 95 98 0 0 0 0 0 10/30/17 21:35 10/30/17 22:00 10/30/17 22:01 10/30/17 23:00 10/30/17 23:02 10/30/17 23:50 10/31/17 00:00 10/31/17 00:02 10/31/17 00:24 10/31/17 01:01 10/31/17 02:01 10/31/17 03:00 10/31/17 06:00 10/31/17 08:22 137 kg 183/92 H 197/95 H 196/96 H 135/54 L 189/85 H 182/91 H 166/81 H 180/85 H 183/81 H Sitting Left Lateral Supine 20 29 H 26 H 22 26 H 27 H 28 H 29 H 29 H 20 66 64 72 68 68 76 82 78 79 37.4 C 37.8 C H 37.8 C H 37.0 C 37.6 C H 36.8 C Temporal Artery Scan Tympanic Temporal Artery Scan 95 97 96 0 0 0
[2017-10-31] MEDS: Gabapentin 800 MG TAB PO ×3 (10:45→20:40)
[2017-10-31] MEDS: carBAMazepine 200 MG TAB 100 MG PO ×2 (10:45→20:40)
[2017-10-31] MEDS: Insulin Glargine 300 UNITS/3 ML PEN 80 UNITS SC ×2 (10:46→20:37)
[2017-10-31] MEDS: amLODIPine 5 MG TAB 10 MG PO (10:46)
[2017-10-31] MEDS: Omeprazole 20 MG CAPCR PO (10:47)
[2017-10-31] MEDS: Venlafaxine 37.5 MG CAPCR 75 MG PO (10:47)
--- NOTE | 2017-10-31 10:47 | PTTR_ITS ---
PT Notes Date: 10/31/17 PRECAUTIONS: Standard precautions SUBJECTIVE: Pt sitting in chair, when asked if he wanted to walk and participate in therapy session, pt did not answer therapist. Pt allowed RN and PT to change gown, and get ready for mobility training, but once up patient turned and sat on the bed with no notice and refused to partipate in PT stating I am too tired. RN spoke with patient about communicating intentions prior to movements so patient and team can be on the same page, pt did not reply. OBJECTIVE: General observation: telemetry, 02 monitor, sara PAIN: no c/o pain BED MOBILITY/TRANSFERS * Pt wearing sneakers for all mobility requiring max A to don/doff Sit-stand: minAx1-2. Pt r Chair-bed: SBA with bariatric FWW Stand-sit: SBA Sit-supine: CGA for LE's into bed GAIT * Pt wearing sneakers for all gait mobility Assistive Device: bariatric FWW Weight bearing: as tolerated Assist: CGA Distance: Therapist attempted to initiate gait training, pt took steps from chair to bed then sat on bed and refused gait. Pt stood to take 4 side steps to the left to position higher in bed prior to lying down. ASSESSMENT: Pt with decreased communication today, decreased motivation to participate in therapy session, reports feeling tired. Will continue attempts. PLAN: Progress transfers Progress gait mobility TREATMENT TIME/CODES 10min TAx1 10:40 Yolanda Chang PT Intake Vital Signs 3 l l l l 10/27/17 17:28 l l 10/27/17 17:35 l l 10/27/17 17:37 l l 10/27/17 17:40 l l 10/27/17 17:45 l l 10/27/17 17:50 l l 10/27/17 18:00 l l 10/27/17 18:01 l l 10/27/17 18:10 l l 10/27/17 18:15 l l 10/27/17 18:20 l l 10/27/17 18:22 l l 10/27/17 18:30 l l 10/27/17 18:31 l l 10/27/17 18:40 l l 10/27/17 18:45 l l 10/27/17 18:50 l l 10/27/17 19:00 l l 10/27/17 19:01 l l 10/27/17 19:10 l l 10/27/17 19:15 l l 10/27/17 19:20 l l 10/27/17 19:30 l l 10/27/17 19:40 l l 10/27/17 19:41 l l 10/27/17 19:45 l l 10/27/17 19:50 l l 10/27/17 19:50 l l 10/27/17 19:54 l l 10/27/17 20:00 l l 10/27/17 20:01 l l 10/27/17 20:10 l l 10/27/17 20:11 l l 10/27/17 20:15 l l 10/27/17 20:20 l l 10/27/17 21:14 l l 10/27/17 22:06 l l 10/28/17 01:29 l l 10/28/17 02:43 l l 10/28/17 02:47 l l 10/28/17 03:40 l l 10/28/17 04:01 l l 10/28/17 04:05 l l 10/28/17 04:15 l l 10/28/17 04:23 l l 10/28/17 04:31 l l 10/28/17 04:46 l l 10/28/17 05:04 l l 10/28/17 05:05 l l 10/28/17 05:18 l l 10/28/17 05:32 l l 10/28/17 05:33 l l 10/28/17 05:47 l l 10/28/17 06:02 l l 10/28/17 06:17 l l 10/28/17 06:20 l l 10/28/17 07:45 l l 10/28/17 08:45 l l 10/28/17 08:57 l l 10/28/17 09:01 l l 10/28/17 09:30 l l 10/28/17 09:56 l l 10/28/17 10:22 l l 10/28/17 10:40 l l 10/28/17 11:12 l l 10/28/17 12:10 l l 10/28/17 12:48 l l 10/28/17 12:50 l l 10/28/17 13:57 l l 10/28/17 14:01 l l 10/28/17 14:20 l l 10/28/17 14:30 l l 10/28/17 14:40 l l 10/28/17 14:50 l l 10/28/17 15:00 l l 10/28/17 15:01 l l 10/28/17 15:10 l l 10/28/17 15:20 l l 10/28/17 15:30 l l 10/28/17 15:40 l l 10/28/17 15:50 l l 10/28/17 16:00 l l 10/28/17 16:01 l l 10/28/17 16:15 l l 10/28/17 16:15 l l 10/28/17 16:20 l l 10/28/17 16:40 l l 10/28/17 16:50 l l 10/28/17 17:02 l l 10/28/17 18:01 l l 10/28/17 19:00 l l 10/28/17 20:00 l l 10/28/17 20:39 l l 10/28/17 21:00 l l 10/28/17 22:00 l l 10/28/17 23:07 l l 10/28/17 23:08 l l 10/28/17 23:34 l l 10/29/17 00:34 l l 10/29/17 01:00 l l 10/29/17 02:00 l l 10/29/17 03:07 l l 10/29/17 06:00 l l 10/29/17 07:00 l l 10/29/17 09:30 l l 10/29/17 09:30 l l 10/29/17 09:48 l l 10/29/17 11:10 l l 10/29/17 11:21 l l 10/29/17 14:29 l l 10/29/17 14:30 l l 10/29/17 14:51 l l 10/29/17 15:00 l l 10/29/17 15:54 l l 10/29/17 16:30 l l 10/29/17 16:33 l l 10/29/17 17:00 l l 10/29/17 17:06 l l 10/29/17 18:00 l l 10/29/17 19:34 l l 10/29/17 21:44 l l 10/29/17 22:00 l l 10/29/17 23:00 l l 10/29/17 23:16 l l 10/30/17 00:40 l l 10/30/17 00:40 l l 10/30/17 01:16 l l 10/30/17 01:34 l l 10/30/17 02:00 l l 10/30/17 02:25 l l 10/30/17 03:00 l l 10/30/17 03:00 l l 10/30/17 03:01 l l 10/30/17 04:00 l l 10/30/17 04:01 l l 10/30/17 05:01 l l 10/30/17 06:00 l l 10/30/17 06:00 l l 10/30/17 06:01 l l 10/30/17 07:01 l l 10/30/17 07:05 l l 10/30/17 08:23 l l 10/30/17 09:00 l l 10/30/17 09:15 l l 10/30/17 10:00 l l 10/30/17 11:00 l l 10/30/17 11:30 l l 10/30/17 12:00 l l 10/30/17 12:08 l l 10/30/17 12:15 l l 10/30/17 13:30 l l 10/30/17 14:26 l l 10/30/17 15:15 l l 10/30/17 15:17 l l 10/30/17 15:18 l l 10/30/17 16:00 l l 10/30/17 16:01 l l 10/30/17 17:00 l l 10/30/17 18:31 l l 10/30/17 21:35 l l 10/30/17 22:00 l l 10/30/17 22:01 l l 10/30/17 23:00 l l 10/30/17 23:02 l l 10/30/17 23:50 l l 10/31/17 00:00 l l 10/31/17 00:02 l l 10/31/17 00:24 l l 10/31/17 01:01 l l 10/31/17 02:01 l l 10/31/17 03:00 l l 10/31/17 06:00 l l 10/31/17 08:22 l l Height 6 ft 1 in 6 ft 1 in l l Weight 141.4 kg 141.4 kg 141.4 kg 141.4 kg 134.7 kg 135 kg 137 kg 137 kg l l BP 170/58 H 203/123 H 200/85 H 191/154 H 170/58 H 168/53 H 151/61 H 136/92 H 153/61 H 147/59 H 132/59 L 135/54 L 137/55 L 113/67 89/39 L 81/50 L 80/30 L 87/42 L 89/45 L 95/45 L 111/46 L 103/51 L 92 /48 L 102/52 L 100/44 L 99/45 L 97/58 L 94/48 L 113/ 59 L 119/64 125/51 L 106/58 L 115/63 135/75 139/70 149/75 H 151/74 H 110/52 L 136/57 L 188/66 H 169/94 H 169/94 H 156/76 H 127/80 143/85 H 163/91 H 168/89 H 168/89 H 166/86 H 184/94 H 165/94 H 190/88 H 171/95 H 171/95 H 176/88 H 189/97 H 187/95 H 187/95 H 182/90 H 182/90 H 195/ 111 H 187/99 H 187/89 H 187/95 H 191/94 H 171/77 H 208/108 H 193/93 H 200/90 H 200/90 H 184/86 H 193/87 H 183/92 H 197/95 H 196/96 H 135/54 L 189/85 H 182/ 91 H 166/81 H 180/85 H 183/81 H l l Position Supine Supine Supine Supine Supine Supine Sitting Sitting Left Lateral Supine l l Respiration 32 H 25 H 28 H 31 H 24 23 26 H 29 H 24 26 H 26 H 24 25 H 20 25 H 21 29 H 28 H 22 31 H 29 H 20 25 H 32 H 29 H 37 H 38 H 37 H 31 H 35 H 31 H 24 41 H 43 H 26 H 29 H 36 H 21 32 H 29 H 31 H 32 H 31 H 34 H 24 18 22 19 17 12 18 21 16 15 17 16 18 18 18 18 15 20 24 15 19 19 17 18 19 19 17 22 19 21 24 26 H 26 H 16 22 22 24 20 18 15 19 17 18 22 24 16 17 17 20 25 H 25 H 19 18 22 19 17 17 14 16 18 18 21 14 16 19 16 19 17 19 14 19 21 19 20 21 19 17 19 18 19 20 29 H 26 H 22 26 H 27 H 28 H 29 H 29 H 20 l l Pulse 110 H 108 H 104 H 111 H 105 H 106 H 105 H 102 H 101 H 98 H 98 H 96 H 94 H 94 H 90 89 84 86 84 87 87 86 86 86 85 85 85 85 77 74 73 68 66 60 61 63 64 66 67 70 82 75 75 74 83 76 70 66 65 68 74 70 73 68 70 67 72 69 70 67 64 65 63 65 65 64 72 89 78 68 71 67 69 66 64 72 68 68 76 82 78 79 l l Temp 38.6 C H 39.7 C H 39.5 C H 39.3 C H 39.5 C H 39.2 C H 38.6 C H 38.4 C H 39.4 C H 39.2 C H 38.1 C H 36.5 C 36.8 C 36.3 C L 36.3 C L 36.3 C L 36.2 C L 36.8 C 37.6 C H 37.9 C H 37.9 C H 35.6 C L 36.7 C 36.6 C 36.8 C 36.8 C 36.6 C 36.5 C 36.5 C 36.7 C 36.1 C L 36.5 C 37.1 C 36.5 C 36.6 C 37.4 C 37.8 C H 37.8 C H 37.0 C 37.6 C H 36.8 C l l Temp Source Skin Tympanic Tympanic Tympanic Tympanic Temporal Artery Scan Temporal Artery Scan Temporal Artery Scan Tympanic Temporal Artery Scan Temporal Artery Scan Temporal Artery Scan Temporal Artery Scan Temporal Artery Scan Temporal Artery Scan Temporal Artery Scan Temporal Artery Scan Temporal Artery Scan Temporal Artery Scan Temporal Artery Scan Temporal Artery Scan Temporal Artery Scan Tympanic Temporal Artery Scan Temporal Artery Scan Temporal Artery Scan Tympanic Temporal Artery Scan l l Pulse Oximetry (%) 96 94 L 94 L 97 96 96 98 98 97 97 95 96 96 97 96 97 96 96 97 96 95 98 96 95 96 96 95 95 97 97 98 93 L 90 L 95 100 99 97 96 96 100 97 98 95 98 97 95 98 95 97 96 l l Oxygen Flow Rate 2 0 0 2 2 0 0 0 0 0 0 0 0 0 0 0 0 0 0 0 0
[2017-10-31] MEDS: VANCOMYCIN 1,500 MG in Normal Saline 500 ML 500 MG IV (12:49)
[2017-10-31] MEDS: Acetaminophen 325 MG TAB PO (13:53)
--- NOTE | 2017-10-31 14:33 | PT.INNT ---
PT Notes Inpatient Physical Therapy Treatment Note PRECAUTIONS:Fall SUBJECTIVE: Brendan is agreeable to PT OBJECTIVE: PAIN: No c/o pain BED MOBILITY/TRANSFERS Supine-sit: SBA with HOB at 30 degrees Sit-stand: SBA Stand-sit: SBA Bed-Chair: SBA GAIT Assistive Device: Bariatric FWW Weight bearing: Full Assist: SBA Distance: 5' THEREX: Patient completed LAQ and hip flexion exercises for LE strengthening, as well as static standing x2 minutes. ASSESSMENT: Patient tolerated session with increased fatigue and SOB. He was able to demonstrate [id number] transfer, requiring SBA only at this time. PLAN: Continue with PT's POC TREATMENT CODE/TIME: TA/TP; 25 minutes
--- NOTE | 2017-10-31 14:37 | NT_ITS ---
PT Notes Inpatient Physical Therapy Treatment Note PRECAUTIONS:Fall SUBJECTIVE: Brendan is agreeable to PT OBJECTIVE: PAIN: No c/o pain BED MOBILITY/TRANSFERS Supine-sit: SBA with HOB at 30 degrees Sit-stand: SBA Stand-sit: SBA Bed-Chair: SBA GAIT Assistive Device: Bariatric FWW Weight bearing: Full Assist: SBA Distance: 5' THEREX: Patient completed LAQ and hip flexion exercises for LE strengthening, as well as static standing x2 minutes. ASSESSMENT: Patient tolerated session with increased fatigue and SOB. He was able to demonstrate [id number] transfer, requiring SBA only at this time. PLAN: Continue with PT's POC TREATMENT CODE/TIME: TA/TP; 25 minutes
--- NOTE | 2017-10-31 14:41 | PDOC.CMPRO ---
- If Service Date Differs Date of service: 10/31/17 Time of Service: 14:41 Care Management Progress Note S/O: Brendan continues to be cared for in the ICU he is in bed when CM arrives resting. Brendan was reviewed at interdisciplinary rounds plan is for him to continue his IV antibiotics. CM contacted the [facility] today and spoke with Isela she reports that Brendan can swing if needed at [facility] and she reassures that he will have a bed to return to at the [facility] at time of discharge. A:Brendan is a 57 year old male admitted with sepsis related to a UTI. P:Brendan will potentially swing prior to returning to the [facility] when medically ready per provider. Plan to have him transfer by wheelchair van RCT. CM updated the [facility] today. Anticipate that Brendan will need at least 10 days of IV antibiotics. CM to continue to provide support to patient and care team ongoing discharge planning and disposition.
--- NOTE | 2017-10-31 14:50 | W.PM.PROGNOT ---
Date of service: 10/31/17 Time of Service: 14:58 Assessment and Plan (1) Sepsis: Current visit: Yes Status: Acute Appears resolved. Mr. Corley as evidence of enterococcus faecalis UTI that is sensitive to ampicillin, as well as blood cultures positive for group C strep as etiology. While chest x-ray shows possible pneumonia versus mild CHF, clinically the patient did not appear to have any pulmonary symptoms. Discussed case with infectious disease at [facility]. Vancomycin and Zosyn were discontinued after 2 days of treatment, and patient was initiated on renaly dosed Ampicillin for 2 days. However, while technically afebrile the patient had 2 elevations in temperature of 37.6 and 37.8 overnight, slight worsening in his WBC that had been improving dramatically (Despite decrease in steroid dosing), as well as worsening erythema in his RLE. Given above Mr. Corley's antibiotic regimen was changed back to Vancomycin and Zosyn for additional pulmonary coverage (HCAP as patient is a chronic longterm resident). Monitor temperature, vitals, symptoms, and WBC carefully. (2) JESUS (acute kidney injury): Current visit: Yes Status: Acute Evidence of acute kidney injury superimposed on chronic kidney disease. This is in the setting of acute illness and sepsis, with a transient decrease in urinary output. Improvement in creatinine and normal potassium levels by by labs this morning. Current creatinine is 2.32 down from 2.81 and 3 previously, with a baseline of approximately 1.5-2. Monitor renal function carefully, avoid nephrotoxins, and renaly dose medications when appropriate. As the patient is overall volume overloaded and has hyperkalemia will continue low dose IV furosemide and monitor renal function carefully. Discontinue Kayexalate as hyperkalemia appears resolved. (3) UTI (urinary tract infection) due to Enterococcus: Current visit: No Status: Chronic UTI with evidence of pansensitive enterococcus faecalis. Ampicillin discontinued as above - reinitiating Vancomycin. Day #5 total of antibiotics. (4) Diabetes mellitus type 2, controlled: Current visit: Yes Status: Chronic Continue basal insulin, but changed to resistance sliding scale as the patient's blood sugars were grossly elevated. This is in the setting of both infection as well as stress dose steroid use. Decrease steroids again today. Current blood sugars improved and in the mid to high 100's. (5) Hypertension: Current visit: Yes Status: Chronic Initially hypotensive in the setting of sepsis, now hypertensive. IV fluids discontinued. Continue increased dose of amlodipine and metoprolol. We will continue to hold ARYA inhibitor in the setting of acute kidney injury on CKD. Continue prn IV Hydralazine. Current bp improved. Monitor and consider initiation of additional agent if needed. Also on IV lasix. (6) Heme positive stool: Current visit: Yes Status: Acute Increased output through ostomy in setting of Kayexalate use, tested Heme +. Patient is chronically on steroids - change low dose oral PPI to IV BID dosing. Monitor Hgb and stool output closely. (7) Anxiety: Current visit: Yes Status: Chronic Currently on both SNRI as well as SSRI therapy (8) Chronic pain: Current visit: Yes Status: Chronic Continue current pain regimen. (9) CAD (coronary artery disease): Current visit: Yes Status: Chronic Noted. Appears quiescent. (10) Rheumatoid arthritis: Current visit: Yes Status: Chronic Maintained on Humira as an outpatient, as well as daily prednisone therapy. (11) Crohns disease: Current visit: Yes Status: Chronic Status post total colectomy, with ostomy in place that appears to be functioning well. (12) Chronic insomnia: Current visit: Yes Status: Chronic Initiated nightly mirtazapine. (13) Anemia: Current visit: Yes Status: Acute Hemoglobin low but stable, with further workup showing a low iron, low TIBC, and normal ferritin at 124, indicating a likely mixed etiology for the patient's anemia. B12 and folic acid were also checked and normal. (14) Hypothyroidism: Current visit: Yes Status: Chronic Continue replacement therapy. (15) DVT prophylaxis: Current visit: Yes Status: Acute Continue subcutaneous heparin. Subjective Interval history since last seen: 57-year-old resident at the [facility] admitted from [facility] on October 27 with a diagnosis of bacteremia. Mr. Corley is a chronic resident at a nursing facility due to his significant disability from rheumatoid arthritis. He was sent in for further evaluation from the [facility] to [facility] ED due to development of high fevers, with further workup showing evidence of a significant leukocytosis, elevated lactate, and eventual development of hypotension. Initially attributed to potential lower extremity cellulitis, the patient was found to have evidence of a UTI and possible findings of pneumonia by chest x-ray, as well as excoriations in his skin (lower extremities) as potential nidus for infection. Mr. Corley had been steadily improving and remained afebrile with improving leukocytosis on broad spectrum antibiotics. His regimen was changed to IV Ampicillin, and over 24 hours later he developed temperatures of 37.8 and 37.6, and this morning his CBC showed a lack of improvement in his WBC despite a decrease in his steroid dosing. Continued evidence of JESUS with hyperkalemia, but with significant improvement in creatinine and a normal potassium level this morning. No overnight events reported. Patient has no complaints today. Exam Const General: cooperative, not healthy appearing, no acute distress, anxious and cushingoid Nutritional Appearance: obese Orientation: alert and oriented to person Resp Effort & Inspection: normal respiratory effort and able to speak in complete sentences Auscultation: clear to auscultation bilaterally ( ) Cardio Rate: regular rate Rhythm: regular rhythm Heart Sounds: S1 abnormal (Distant heart sounds, difficult to discern) GI Inspection: normal to inspection Palpation: soft and nontender Rectal Exam: visual inspection normal Skin General skin exam: no rashes or lesions noted (Chronic b/l LE hyperpigmentation) and dry skin Lesions: lesion noted (Linear scratches on both thighs) Neuro General: alert and oriented x3 Extrem General: normal to inspection and edema (4+ edema both lower extremities, with chronic appearing hyperpigmentation R>L) Laterality: bilateral Psych Appearance: disheveled Mental Status: mental status grossly normal Speech and Movement: delayed speech Objective Objective Clinical Data: Abnormal lab results 10/30/17 10/31/17 10/31/17 Range/Units 14:25 00:23 06:42 WBC (4.4-10.8) k/cumm RBC (4.50-6.00) m/cumm Hgb 8.4 L (13.5-17.5) g/dL Hct 27.8 L (40.0-50.0) % MCV (80-95) fL MCH (27.0-33.0) pg MCHC (32.0-36.0) g/dL RDW (11.8-14.1) % Plt Count (130-400) x1000/uL Absolute Neutrophils (1.2-6.7) k/cumm Potassium 5.4 H (3.5-5.1) mmol/L Chloride 110 H (98-107) mmol/L Carbon Dioxide 20.4 L (21.0-32.0) mmol/L BUN 67 H 70 H (7-18) mg/dL Creatinine 2.72 H 2.32 H (0.70-1.30) mg/dL Glucose 432 H 156 H D (70-100) mg/dL Calcium 8.1 L (8.5-10.1) mg/dL AST 13 L (15-37) U/L Alkaline Phosphatase 203 H (46-116) U/L Albumin 2.3 L (3.4-5.0) g/dL 10/31/17 Range/Units 06:42 WBC 15.69 H (4.4-10.8) k/cumm RBC 4.34 L (4.50-6.00) m/cumm Hgb 8.3 L (13.5-17.5) g/dL Hct 28.7 L (40.0-50.0) % MCV 66.1 L (80-95) fL MCH 19.1 L (27.0-33.0) pg MCHC 28.9 L (32.0-36.0) g/dL RDW 18.7 H (11.8-14.1) % Plt Count 480 H (130-400) x1000/uL Absolute Neutrophils 13.96 H (1.2-6.7) k/cumm Potassium (3.5-5.1) mmol/L Chloride (98-107) mmol/L Carbon Dioxide (21.0-32.0) mmol/L BUN (7-18) mg/dL Creatinine (0.70-1.30) mg/dL Glucose (70-100) mg/dL Calcium (8.5-10.1) mg/dL AST (15-37) U/L Alkaline Phosphatase (46-116) U/L Albumin (3.4-5.0) g/dL Vital Signs Temp 36.3 C L 10/31/17 12:21 Pulse 78 10/31/17 13:46 Resp 24 10/31/17 13:46 BP 164/81 H 10/31/17 13:46 Pulse Ox 96 10/31/17 07:15 Intake & Output 10/30/17 10/31/17 10/31/17 23:59 11:59 23:59 Intake Total 690 / 690 750 / 750 Output Total 3250 / 3250 1350 / 1350 1025 / 1025 Balance -2560 / -2560 -600 / -600 -1025 / -1025 Weight 137 kg Intake: IV 210 / 210 50 / 50 Oral 480 / 480 700 / 700 Output: Urine 1950 / 1950 950 / 950 950 / 950 Stool 1300 / 1300 400 / 400 75 / 75 Other: Urine Color Yellow Yellow Yellow Urine Appearance Clear Clear Clear Urine Odor None Comment Downing intact and draining clear yellow urine. Downing intact and draining clear yellow urine. Downing intact and draining clear yellow urine. Voiding Methods Indwelling Catheter Indwelling Catheter Laboratory Results WBC 15.69 k/cumm (4.4-10.8) H 10/31/17 06:42 RBC 4.34 m/cumm (4.50-6.00) L 10/31/17 06:42 Hgb 8.3 g/dL (13.5-17.5) L 10/31/17 06:42 Hct 28.7 % (40.0-50.0) L 10/31/17 06:42 MCV 66.1 fL (80-95) L 10/31/17 06:42 MCH 19.1 pg (27.0-33.0) L 10/31/17 06:42 MCHC 28.9 g/dL (32.0-36.0) L 10/31/17 06:42 RDW 18.7 % (11.8-14.1) H 10/31/17 06:42 Plt Count 480 x1000/uL (130-400) H 10/31/17 06:42 MPV 9.9 fL (8.0-11.0) 10/31/17 06:42 Immature Gran % See Differential 10/31/17 06:42 Neutrophils % 89.0 10/31/17 06:42 Lymphocytes % 10.0 10/31/17 06:42 Monocytes % 1.0 10/31/17 06:42 Eosinophils % 0.0 10/31/17 06:42 Basophils % 0.0 10/31/17 06:42 Absolute Neutrophils 13.96 k/cumm (1.2-6.7) H 10/31/17 06:42 Band Neutrophils 0.0 % 10/31/17 06:42 Absolute Lymphocytes 1.57 k/cumm (1.2-3.4) 10/31/17 06:42 Absolute Monocytes 0.16 k/cumm (0.11-0.7) 10/31/17 06:42 Absolute Eosinophils 0.00 k/cumm (0.0-0.7) 10/31/17 06:42 Absolute Basophils 0.00 k/cumm (0.0-0.2) 10/31/17 06:42 Metamyelocytes 1.0 % 10/28/17 06:30 Differential Comment Manual differential 10/31/17 06:42 Atypical Lymphocytes 0 10/31/17 06:42 RBC Morphology See below 10/31/17 06:42 Polychromasia Present 10/29/17 06:40 Hypochromasia 1+ 10/31/17 06:42 Poikilocytosis 1+ 10/30/17 04:15 Basophilic Stippling Present 10/28/17 06:30 Anisocytosis 2+ 10/31/17 06:42 Microcytosis 2+ 10/31/17 06:42 Ovalocytes 2+ 10/29/17 06:40 PT 10.9 sec (9.3-10.8) H 10/27/17 18:02 INR 1.1 (1.0-3.5) 10/27/17 18:02 Sodium 141 mmol/L (136-145) 10/31/17 06:42 Potassium 4.7 mmol/L (3.5-5.1) 10/31/17 06:42 Chloride 110 mmol/L (98-107) H 10/31/17 06:42 Carbon Dioxide 23.4 mmol/L (21.0-32.0) 10/31/17 06:42 Anion Gap 7.6 mmol/L (3-11) 10/31/17 06:42 BUN 70 mg/dL (7-18) H 10/31/17 06:42 Creatinine 2.32 mg/dL (0.70-1.30) H 10/31/17 06:42 Estimated GFR/1.73 m2 29.06 (mL/min/1.73m2) 10/31/17 06:42 Glucose 156 mg/dL (70-100) H D 10/31/17 06:42 Hemoglobin A1c 6.2 % (4.5-6.2) 10/28/17 06:30 Lactate 0.9 mmol/L (0.6-1.4) 10/28/17 09:48 Calcium 8.5 mg/dL (8.5-10.1) 10/31/17 06:42 Iron 8 ug/dL (50-175) L 10/29/17 06:40 TIBC 245 ug/dL (250-450) L 10/29/17 06:40 Transferrin % Sat 3 % (20-55) L 10/29/17 06:40 Ferritin 124 ng/mL (8-388) 10/29/17 06:40 Total Bilirubin 0.4 mg/dL (0.2-1.0) 10/31/17 06:42 AST 13 U/L (15-37) L 10/31/17 06:42 ALT 17 U/L (12-78) 10/31/17 06:42 Alkaline Phosphatase 203 U/L (46-116) H 10/31/17 06:42 NT-Pro-B Natriuret Pep 4180 pg/mL (-299) H 10/28/17 06:30 Total Protein 7.2 g/dL (6.4-8.2) 10/31/17 06:42 Albumin 2.3 g/dL (3.4-5.0) L 10/31/17 06:42 Vitamin B12 912 pg/mL (193-986) 10/29/17 06:40 Folate 14.1 ng/mL (8.6-20.0) 10/29/17 06:40 Urine Color Yellow (Yellow) 10/27/17 18:10 Urine Clarity Clear 10/27/17 18:10 Urine pH 5.5 (5-8) 10/27/17 18:10 Ur Specific [place] 1.020 (1.005-1.025) 10/27/17 18:10 Urine Protein >=300 mg/dL (Negative) H 10/27/17 18:10 Urine Ketones Negative mg/dL (Negative) 10/27/17 18:10 Urine Blood Small (Negative) H 10/27/17 18:10 Urine Nitrite Negative (Negative) 10/27/17 18:10 Urine Bilirubin Negative (Negative) 10/27/17 18:10 Urine Urobilinogen 0.2 EU/dL (Up TO 0.2) 10/27/17 18:10 Ur Leukocyte Esterase Trace (Negative) H 10/27/17 18:10 Urine RBC 10-20 (0-2) H 10/27/17 18:10 Urine WBC 20-50 HPF (0-5) 10/27/17 18:10 Ur Epithelial Cells Few HPF (Negative) 10/27/17 18:10 Urine Crystals Negative HPF (Negative) 10/27/17 18:10 Urine Bacteria Moderate HPF (Negative) 10/27/17 18:10 Urine Casts 0-2 coarse granular LPF (Negative) 10/27/17 18:10 Urine Mucus Negative (Negative) 10/27/17 18:10 Urine Other Few transitional (Negative) 10/27/17 18:10 Ur Culture Indicated? Yes 10/27/17 18:10 Urine Glucose Negative mg/dL (Negative) 10/27/17 18:10 Patient ABO/Rh AB Negative 10/31/17 00:23 Antibody Screen Negative 10/31/17 00:23
--- NOTE | 2017-10-31 15:05 | PT.INTREAT ---
PT Notes PRECAUTIONS:Fall SUBJECTIVE: Brendan is agreeable to PT OBJECTIVE: PAIN: No c/o pain BED MOBILITY/TRANSFERS Supine-sit: SBA with HOB at 30 degrees Sit-stand: SBA Stand-sit: SBA Bed-Chair: SBA GAIT Assistive Device: Bariatric FWW Weight bearing: Full Assist: SBA Distance: 5' THEREX: Patient completed LAQ and hip flexion exercises for LE strengthening, as well as static standing x2 minutes. ASSESSMENT: Patient tolerated session with increased fatigue and SOB. He was able to demonstrate [id number] transfer, requiring SBA only at this time. PLAN: Continue with PT's POC TREATMENT CODE/TIME: TA/TP; 25 minutes Intake Vital Signs 10/27/17 17:28 10/27/17 17:35 10/27/17 17:37 10/27/17 17:40 10/27/17 17:45 10/27/17 17:50 10/27/17 18:00 10/27/17 18:01 10/27/17 18:10 10/27/17 18:15 10/27/17 18:20 10/27/17 18:22 10/27/17 18:30 10/27/17 18:31 10/27/17 18:40 10/27/17 18:45 10/27/17 18:50 10/27/17 19:00 10/27/17 19:01 10/27/17 19:10 10/27/17 19:15 10/27/17 19:20 10/27/17 19:30 10/27/17 19:40 10/27/17 19:41 10/27/17 19:45 10/27/17 19:50 10/27/17 19:50 10/27/17 19:54 10/27/17 20:00 10/27/17 20:01 Height 6 ft 1 in 6 ft 1 in Weight 141.4 kg 141.4 kg 141.4 kg BP 170/58 H 203/123 H 200/85 H 191/154 H 170/58 H 168/53 H 151/61 H 136/92 H 153/61 H 147/59 H 132/59 L 135/54 L Position Respiration 32 H 25 H 28 H 31 H 24 23 26 H 29 H 24 26 H 26 H 24 25 H 20 25 H 21 29 H 28 H 22 31 H 29 H 20 25 H 32 H 29 H 37 H 38 H 37 H Pulse 110 H 108 H 104 H 111 H 105 H 106 H 105 H 102 H 101 H 98 H 98 H 96 H Temp 38.6 C H 39.7 C H Temp Source Skin Pulse Oximetry (%) 96 94 L 94 L 97 96 96 98 98 97 97 95 96 96 97 96 97 96 96 97 96 95 98 96 95 96 96 95 95 Oxygen Flow Rate 2 10/27/17 20:10 10/27/17 20:11 10/27/17 20:15 10/27/17 20:20 10/27/17 21:14 10/27/17 22:06 10/28/17 01:29 10/28/17 02:43 10/28/17 02:47 10/28/17 03:40 10/28/17 04:01 10/28/17 04:05 10/28/17 04:15 10/28/17 04:23 10/28/17 04:31 10/28/17 04:46 10/28/17 05:04 10/28/17 05:05 10/28/17 05:18 10/28/17 05:32 10/28/17 05:33 10/28/17 05:47 10/28/17 06:02 10/28/17 06:17 10/28/17 06:20 10/28/17 07:45 10/28/17 08:45 10/28/17 08:57 10/28/17 09:01 10/28/17 09:30 10/28/17 09:56 10/28/17 10:22 141.4 kg 134.7 kg 137/55 L 113/67 89/39 L 81/50 L 80/30 L 87/42 L 89/45 L 95/45 L 111/46 L 103/51 L 92/48 L 102/52 L 100/44 L 99/45 L 97/58 L 94/48 L 113/59 L 119/64 125/51 L 31 H 35 H 31 H 24 41 H 43 H 26 H 29 H 36 H 21 32 H 29 H 31 H 32 H 31 H 34 H 24 18 22 19 17 94 H 94 H 90 89 84 86 84 87 87 86 86 86 85 85 85 85 77 74 73 68 39.5 C H 39.3 C H 39.5 C H 39.2 C H 38.6 C H 38.4 C H 39.4 C H 39.2 C H 38.1 C H 36.5 C 36.8 C 36.3 C L Tympanic Tympanic Tympanic Tympanic Temporal Artery Scan Temporal Artery Scan Temporal Artery Scan Tympanic 97 97 98 93 L 90 L 95 0 0 2 2 10/28/17 10:40 10/28/17 11:12 10/28/17 12:10 10/28/17 12:48 10/28/17 12:50 10/28/17 13:57 10/28/17 14:01 10/28/17 14:20 10/28/17 14:30 10/28/17 14:40 10/28/17 14:50 10/28/17 15:00 10/28/17 15:01 10/28/17 15:10 10/28/17 15:20 10/28/17 15:30 10/28/17 15:40 10/28/17 15:50 10/28/17 16:00 10/28/17 16:01 10/28/17 16:15 10/28/17 16:15 10/28/17 16:20 10/28/17 16:40 10/28/17 16:50 10/28/17 17:02 10/28/17 18:01 10/28/17 19:00 10/28/17 20:00 10/28/17 20:39 10/28/17 21:00 10/28/17 22:00 106/58 L 115/63 135/75 139/70 149/75 H 151/74 H 110/52 L 136/57 L 188/66 H 12 18 21 16 15 17 16 18 18 18 18 15 20 24 15 19 19 17 18 19 19 17 22 19 21 24 26 H 66 60 61 63 64 66 67 70 82 36.3 C L 36.3 C L 36.2 C L 36.8 C 37.6 C H Temporal Artery Scan Temporal Artery Scan Temporal Artery Scan 100 99 0 0 10/28/17 23:07 10/28/17 23:08 10/28/17 23:34 10/29/17 00:34 10/29/17 01:00 10/29/17 02:00 10/29/17 03:07 10/29/17 06:00 10/29/17 07:00 10/29/17 09:30 10/29/17 09:30 10/29/17 09:48 10/29/17 11:10 10/29/17 11:21 10/29/17 14:29 10/29/17 14:30 10/29/17 14:51 10/29/17 15:00 10/29/17 15:54 10/29/17 16:30 10/29/17 16:33 10/29/17 17:00 10/29/17 17:06 10/29/17 18:00 10/29/17 19:34 10/29/17 21:44 10/29/17 22:00 10/29/17 23:00 10/29/17 23:16 10/30/17 00:40 10/30/17 00:40 10/30/17 01:16 135 kg 169/94 H 169/94 H 156/76 H 127/80 143/85 H 163/91 H 168/89 H 168/89 H 166/86 H 184/94 H 165/94 H 190/88 H 171/95 H 171/95 H 176/88 H Supine Supine Supine 26 H 16 22 22 24 20 18 15 19 17 18 22 24 16 17 17 20 25 H 25 H 19 18 75 75 74 83 76 70 66 65 68 74 70 73 68 70 67 37.9 C H 37.9 C H 35.6 C L 36.7 C 36.6 C 36.8 C 36.8 C 36.6 C 36.5 C 36.5 C 36.7 C Temporal Artery Scan Temporal Artery Scan Temporal Artery Scan Temporal Artery Scan Temporal Artery Scan Temporal Artery Scan Temporal Artery Scan Temporal Artery Scan 97 96 96 100 97 98 0 0 0 0 0 0 10/30/17 01:34 10/30/17 02:00 10/30/17 02:25 10/30/17 03:00 10/30/17 03:00 10/30/17 03:01 10/30/17 04:00 10/30/17 04:01 10/30/17 05:01 10/30/17 06:00 10/30/17 06:00 10/30/17 06:01 10/30/17 07:01 10/30/17 07:05 10/30/17 08:23 10/30/17 09:00 10/30/17 09:15 10/30/17 10:00 10/30/17 11:00 10/30/17 11:30 10/30/17 12:00 10/30/17 12:08 10/30/17 12:15 10/30/17 13:30 10/30/17 14:26 10/30/17 15:15 10/30/17 15:17 10/30/17 15:18 10/30/17 16:00 10/30/17 16:01 10/30/17 17:00 10/30/17 18:31 137 kg 189/97 H 187/95 H 187/95 H 182/90 H 182/90 H 195/111 H 187/99 H 187/89 H 187/95 H 191/94 H 171/77 H 208/108 H 193/93 H 200/90 H 200/90 H 184/86 H 193/87 H Supine Supine Supine Sitting 22 19 17 17 14 16 18 18 21 14 16 19 16 19 17 19 14 19 21 19 20 21 19 17 19 18 19 72 69 70 67 64 65 63 65 65 64 72 89 78 68 71 67 69 36.1 C L 36.5 C 37.1 C 36.5 C 36.6 C Temporal Artery Scan Temporal Artery Scan Tympanic Temporal Artery Scan Temporal Artery Scan 95 98 97 95 98 0 0 0 0 0 10/30/17 21:35 10/30/17 22:00 10/30/17 22:01 10/30/17 23:00 10/30/17 23:02 10/30/17 23:50 10/31/17 00:00 10/31/17 00:02 10/31/17 00:24 10/31/17 01:01 10/31/17 02:01 10/31/17 02:02 10/31/17 02:50 10/31/17 03:00 10/31/17 03:01 10/31/17 06:00 10/31/17 06:00 10/31/17 07:01 10/31/17 07:15 10/31/17 08:01 10/31/17 08:20 10/31/17 08:22 10/31/17 11:32 10/31/17 12:21 10/31/17 13:46 137 kg 183/92 H 197/95 H 196/96 H 135/54 L 189/85 H 182/91 H 166/81 H 180/85 H 186/81 H 183/81 H 183/81 H 157/77 H 151/73 H 133/82 172/86 H 164/81 H Sitting Left Lateral Supine Supine Supine 20 29 H 26 H 22 26 H 27 H 28 H 29 H 29 H 29 H 26 H 20 25 H 27 H 19 24 66 64 72 68 68 76 82 78 79 79 78 56 L 61 64 64 78 37.4 C 37.8 C H 37.8 C H 37.0 C 37.6 C H 36.8 C 36.8 C 36.3 C L Temporal Artery Scan Tympanic Temporal Artery Scan Temporal Artery Scan Tympanic 95 97 96 96 0 0 0 0
--- NOTE | 2017-10-31 15:06 | PTTR_ITS ---
PT Notes PRECAUTIONS:Fall SUBJECTIVE: Brendan is agreeable to PT OBJECTIVE: PAIN: No c/o pain BED MOBILITY/TRANSFERS Supine-sit: SBA with HOB at 30 degrees Sit-stand: SBA Stand-sit: SBA Bed-Chair: SBA GAIT Assistive Device: Bariatric FWW Weight bearing: Full Assist: SBA Distance: 5' THEREX: Patient completed LAQ and hip flexion exercises for LE strengthening, as well as static standing x2 minutes. ASSESSMENT: Patient tolerated session with increased fatigue and SOB. He was able to demonstrate [id number] transfer, requiring SBA only at this time. PLAN: Continue with PT's POC TREATMENT CODE/TIME: TA/TP; 25 minutes Intake Vital Signs 3 l l l l 10/27/17 17:28 l l 10/27/17 17:35 l l 10/27/17 17:37 l l 10/27/17 17:40 l l 10/27/17 17:45 l l 10/27/17 17:50 l l 10/27/17 18:00 l l 10/27/17 18:01 l l 10/27/17 18:10 l l 10/27/17 18:15 l l 10/27/17 18:20 l l 10/27/17 18:22 l l 10/27/17 18:30 l l 10/27/17 18:31 l l 10/27/17 18:40 l l 10/27/17 18:45 l l 10/27/17 18:50 l l 10/27/17 19:00 l l 10/27/17 19:01 l l 10/27/17 19:10 l l 10/27/17 19:15 l l 10/27/17 19:20 l l 10/27/17 19:30 l l 10/27/17 19:40 l l 10/27/17 19:41 l l 10/27/17 19:45 l l 10/27/17 19:50 l l 10/27/17 19:50 l l 10/27/17 19:54 l l 10/27/17 20:00 l l 10/27/17 20:01 l l 10/27/17 20:10 l l 10/27/17 20:11 l l 10/27/17 20:15 l l 10/27/17 20:20 l l 10/27/17 21:14 l l 10/27/17 22:06 l l 10/28/17 01:29 l l 10/28/17 02:43 l l 10/28/17 02:47 l l 10/28/17 03:40 l l 10/28/17 04:01 l l 10/28/17 04:05 l l 10/28/17 04:15 l l 10/28/17 04:23 l l 10/28/17 04:31 l l 10/28/17 04:46 l l 10/28/17 05:04 l l 10/28/17 05:05 l l 10/28/17 05:18 l l 10/28/17 05:32 l l 10/28/17 05:33 l l 10/28/17 05:47 l l 10/28/17 06:02 l l 10/28/17 06:17 l l 10/28/17 06:20 l l 10/28/17 07:45 l l 10/28/17 08:45 l l 10/28/17 08:57 l l 10/28/17 09:01 l l 10/28/17 09:30 l l 10/28/17 09:56 l l 10/28/17 10:22 l l 10/28/17 10:40 l l 10/28/17 11:12 l l 10/28/17 12:10 l l 10/28/17 12:48 l l 10/28/17 12:50 l l 10/28/17 13:57 l l 10/28/17 14:01 l l 10/28/17 14:20 l l 10/28/17 14:30 l l 10/28/17 14:40 l l 10/28/17 14:50 l l 10/28/17 15:00 l l 10/28/17 15:01 l l 10/28/17 15:10 l l 10/28/17 15:20 l l 10/28/17 15:30 l l 10/28/17 15:40 l l 10/28/17 15:50 l l 10/28/17 16:00 l l 10/28/17 16:01 l l 10/28/17 16:15 l l 10/28/17 16:15 l l 10/28/17 16:20 l l 10/28/17 16:40 l l 10/28/17 16:50 l l 10/28/17 17:02 l l 10/28/17 18:01 l l 10/28/17 19:00 l l 10/28/17 20:00 l l 10/28/17 20:39 l l 10/28/17 21:00 l l 10/28/17 22:00 l l 10/28/17 23:07 l l 10/28/17 23:08 l l 10/28/17 23:34 l l 10/29/17 00:34 l l 10/29/17 01:00 l l 10/29/17 02:00 l l 10/29/17 03:07 l l 10/29/17 06:00 l l 10/29/17 07:00 l l 10/29/17 09:30 l l 10/29/17 09:30 l l 10/29/17 09:48 l l 10/29/17 11:10 l l 10/29/17 11:21 l l 10/29/17 14:29 l l 10/29/17 14:30 l l 10/29/17 14:51 l l 10/29/17 15:00 l l 10/29/17 15:54 l l 10/29/17 16:30 l l 10/29/17 16:33 l l 10/29/17 17:00 l l 10/29/17 17:06 l l 10/29/17 18:00 l l 10/29/17 19:34 l l 10/29/17 21:44 l l 10/29/17 22:00 l l 10/29/17 23:00 l l 10/29/17 23:16 l l 10/30/17 00:40 l l 10/30/17 00:40 l l 10/30/17 01:16 l l 10/30/17 01:34 l l 10/30/17 02:00 l l 10/30/17 02:25 l l 10/30/17 03:00 l l 10/30/17 03:00 l l 10/30/17 03:01 l l 10/30/17 04:00 l l 10/30/17 04:01 l l 10/30/17 05:01 l l 10/30/17 06:00 l l 10/30/17 06:00 l l 10/30/17 06:01 l l 10/30/17 07:01 l l 10/30/17 07:05 l l 10/30/17 08:23 l l 10/30/17 09:00 l l 10/30/17 09:15 l l 10/30/17 10:00 l l 10/30/17 11:00 l l 10/30/17 11:30 l l 10/30/17 12:00 l l 10/30/17 12:08 l l 10/30/17 12:15 l l 10/30/17 13:30 l l 10/30/17 14:26 l l 10/30/17 15:15 l l 10/30/17 15:17 l l 10/30/17 15:18 l l 10/30/17 16:00 l l 10/30/17 16:01 l l 10/30/17 17:00 l l 10/30/17 18:31 l l 10/30/17 21:35 l l 10/30/17 22:00 l l 10/30/17 22:01 l l 10/30/17 23:00 l l 10/30/17 23:02 l l 10/30/17 23:50 l l 10/31/17 00:00 l l 10/31/17 00:02 l l 10/31/17 00:24 l l 10/31/17 01:01 l l 10/31/17 02:01 l l 10/31/17 02:02 l l 10/31/17 02:50 l l 10/31/17 03:00 l l 10/31/17 03:01 l l 10/31/17 06:00 l l 10/31/17 06:00 l l 10/31/17 07:01 l l 10/31/17 07:15 l l 10/31/17 08:01 l l 10/31/17 08:20 l l 10/31/17 08:22 l l 10/31/17 11:32 l l 10/31/17 12:21 l l 10/31/17 13:46 l l Height 6 ft 1 in 6 ft 1 in l l Weight 141.4 kg 141.4 kg 141.4 kg 141.4 kg 134.7 kg 135 kg 137 kg 137 kg l l BP 170/58 H 203/123 H 200/85 H 191/154 H 170/58 H 168/53 H 151/61 H 136/92 H 153/61 H 147/59 H 132/59 L 135/54 L 137/55 L 113/67 89/39 L 81/50 L 80/30 L 87/42 L 89/45 L 95/45 L 111/46 L 103/51 L 92 /48 L 102/52 L 100/44 L 99/45 L 97/58 L 94/48 L 113/ 59 L 119/64 125/51 L 106/58 L 115/63 135/75 139/70 149/75 H 151/74 H 110/52 L 136/57 L 188/66 H 169/94 H 169/94 H 156/76 H 127/80 143/85 H 163/91 H 168/89 H 168/89 H 166/86 H 184/94 H 165/94 H 190/88 H 171/95 H 171/95 H 176/88 H 189/97 H 187/95 H 187/95 H 182/90 H 182/90 H 195/ 111 H 187/99 H 187/89 H 187/95 H 191/94 H 171/77 H 208/108 H 193/93 H 200/90 H 200/90 H 184/86 H 193/87 H 183/92 H 197/95 H 196/96 H 135/54 L 189/85 H 182/ 91 H 166/81 H 180/85 H 186/81 H 183/81 H 183/81 H 157/77 H 151/73 H 133/82 172/86 H 164/81 H l l Position Supine Supine Supine Supine Supine Supine Sitting Sitting Left Lateral Supine Supine Supine l l Respiration 32 H 25 H 28 H 31 H 24 23 26 H 29 H 24 26 H 26 H 24 25 H 20 25 H 21 29 H 28 H 22 31 H 29 H 20 25 H 32 H 29 H 37 H 38 H 37 H 31 H 35 H 31 H 24 41 H 43 H 26 H 29 H 36 H 21 32 H 29 H 31 H 32 H 31 H 34 H 24 18 22 19 17 12 18 21 16 15 17 16 18 18 18 18 15 20 24 15 19 19 17 18 19 19 17 22 19 21 24 26 H 26 H 16 22 22 24 20 18 15 19 17 18 22 24 16 17 17 20 25 H 25 H 19 18 22 19 17 17 14 16 18 18 21 14 16 19 16 19 17 19 14 19 21 19 20 21 19 17 19 18 19 20 29 H 26 H 22 26 H 27 H 28 H 29 H 29 H 29 H 26 H 20 25 H 27 H 19 24 l l Pulse 110 H 108 H 104 H 111 H 105 H 106 H 105 H 102 H 101 H 98 H 98 H 96 H 94 H 94 H 90 89 84 86 84 87 87 86 86 86 85 85 85 85 77 74 73 68 66 60 61 63 64 66 67 70 82 75 75 74 83 76 70 66 65 68 74 70 73 68 70 67 72 69 70 67 64 65 63 65 65 64 72 89 78 68 71 67 69 66 64 72 68 68 76 82 78 79 79 78 56 L 61 64 64 78 l l Temp 38.6 C H 39.7 C H 39.5 C H 39.3 C H 39.5 C H 39.2 C H 38.6 C H 38.4 C H 39.4 C H 39.2 C H 38.1 C H 36.5 C 36.8 C 36.3 C L 36.3 C L 36.3 C L 36.2 C L 36.8 C 37.6 C H 37.9 C H 37.9 C H 35.6 C L 36.7 C 36.6 C 36.8 C 36.8 C 36.6 C 36.5 C 36.5 C 36.7 C 36.1 C L 36.5 C 37.1 C 36.5 C 36.6 C 37.4 C 37.8 C H 37.8 C H 37.0 C 37.6 C H 36.8 C 36.8 C 36.3 C L l l Temp Source Skin Tympanic Tympanic Tympanic Tympanic Temporal Artery Scan Temporal Artery Scan Temporal Artery Scan Tympanic Temporal Artery Scan Temporal Artery Scan Temporal Artery Scan Temporal Artery Scan Temporal Artery Scan Temporal Artery Scan Temporal Artery Scan Temporal Artery Scan Temporal Artery Scan Temporal Artery Scan Temporal Artery Scan Temporal Artery Scan Temporal Artery Scan Tympanic Temporal Artery Scan Temporal Artery Scan Temporal Artery Scan Tympanic Temporal Artery Scan Temporal Artery Scan Tympanic l l Pulse Oximetry (%) 96 94 L 94 L 97 96 96 98 98 97 97 95 96 96 97 96 97 96 96 97 96 95 98 96 95 96 96 95 95 97 97 98 93 L 90 L 95 100 99 97 96 96 100 97 98 95 98 97 95 98 95 97 96 96 l l Oxygen Flow Rate 2 0 0 2 2 0 0 0 0 0 0 0 0 0 0 0 0 0 0 0 0 0
[2017-10-31] MEDS: Furosemide 20 MG/2 ML VIAL IVP (16:50)
--- NOTE | 2017-10-31 16:54 | CMPROGNOTE_ITS ---
- If Service Date Differs Date of service: 10/31/17 Time of Service: 14:41 Care Management Progress Note S/O: Brendan continues to be cared for in the ICU he is in bed when CM arrives resting. Brendan was reviewed at interdisciplinary rounds plan is for him to continue his IV antibiotics. CM contacted the [facility] today and spoke with Isela she reports that Brendan can swing if needed at [facility] and she reassures that he will have a bed to return to at the [facility] at time of discharge. A:Brendan is a 57 year old male admitted with sepsis related to a UTI. P:Brendan will potentially swing prior to returning to the [facility] when medically ready per provider. Plan to have him transfer by wheelchair van RCT. CM updated the [facility] today. Anticipate that Brendan will need at least 10 days of IV antibiotics. CM to continue to provide support to patient and care team ongoing discharge planning and disposition.
[2017-10-31] MEDS: Sertraline 50 MG TAB PO (20:40)
[2017-10-31] MEDS: Pantoprazole 40 MG VIAL IVP (20:42)
[2017-10-31] MEDS: methylPREDNISolone SUCC 40 MG VIAL 20 MG IVP (20:43)
[2017-10-31] MEDS: Mirtazapine 15 MG TAB PO (22:28)
[2017-10-31] MEDS: risperiDONE 1 MG TAB 3 MG PO (22:29)
[2017-11-01] VITALS (36 sets, daily range): BP systolic 146–214; BP diastolic 67–106; PULSE 57–90; RESP 17–32; TEMP 36.6–37.4; O2SAT 93–95
[2017-11-01] MEDS: hydrALAZINE 20 MG/ML VIAL 10 MG IVP ×2 (05:11→16:14)
[2017-11-01] MEDS: Metoprolol 25 MG TAB PO ×2 (06:40→18:15)
[2017-11-01] MEDS: Levothyroxine 50 MCG TAB PO (06:41)
[2017-11-01 07:10] LABS: Abs Immature Grans 0.16 k/cumm (0.0-0.09); Absolute Basophil Count 0.02 k/cumm (0.0-0.2); Absolute Eosinophil Count 0.03 k/cumm (0.0-0.7); Absolute Lymphocyte Count 1.13 k/cumm (1.2-3.4); Absolute Neutrophil Count 9.25 k/cumm (1.2-6.7); Basophils % 0.2; Eosinophils % 0.3; HCT 28.8 % (40.0-50.0); HGB 8.3 g/dL (13.5-17.5); Immature Grans % 1.4; Lymphocytes % 9.9; Mean Corp. HGB Concentration 28.8 g/dL (32.0-36.0); Mean Corpuscular Hemoglobin 19.1 pg (27.0-33.0); Mean Corpuscular Volume 66.4 fL (80-95); Mean Platelet Volume 10.2 fL (8.0-11.0); Neutrophils % 81.2; RBC 4.34 m/cumm (4.50-6.00); RBC Distribution Width 18.7 % (11.8-14.1); White Blood Cell Count 11.39 k/cumm (4.4-10.8)
[2017-11-01 07:28] LABS: ALT 19 U/L (12-78); AST 16 U/L (15-37); Albumin 2.2 g/dL (3.4-5.0); Alkaline Phosphatase 185 U/L (46-116); Anion Gap 6.3 mmol/L (3-11); BUN 65 mg/dL (7-18); Bilirubin, Total 0.4 mg/dL (0.2-1.0); CO2 25.7 mmol/L (21.0-32.0); CREATININE 2.17 mg/dL (0.70-1.30); Calcium 8.1 mg/dL (8.5-10.1); Chloride 111 mmol/L (98-107); Estimated GFR 31.39 (mL/min/1.73m2); Glucose 185 mg/dL (70-100); Potassium 4.5 mmol/L (3.5-5.1); Sodium 143 mmol/L (136-145)
[2017-11-01 07:52] LABS: Diff Comment RBC Morph Reviewed
[2017-11-01 07:53] LABS: Anisocytosis 3+; Basophilic Stippling Present; Hypochromasia 3+; Microcytosis 3+; Ovalocytes 3+; Platelet Count 426 x1000/uL (130-400); Poikilocytes 2+
--- NOTE | 2017-11-01 09:21 | PDOC.CMPRO ---
- If Service Date Differs Date of service: 11/01/17 Time of Service: 09:21 Care Management Progress Note S/O: Brendan is resting when CM enters the room. CM reviewed patient with primary nurse and he was presented at interdisciplinary rounds. Brendan remains on IV antibiotics and in the ICU. Anticipate no change in patients status today he will plan to return to the [facility] at time of discharge. A: Brendan is a 57 year old male admitted with UTI sepsis in the setting of chronic illness. Brendan is disabled and a resident of the [facility]. P: Brendan will be discharged back to the [facility] when medically ready per provider. He is receiving at least a 10 day course of IV antibiotics for sepsis. He will transition back to the [facility] via RCT wheelchair van.
[2017-11-01] MEDS: Normal Saline Flush 10 ML SYR IVP ×2 (09:24→19:39)
[2017-11-01] MEDS: Pantoprazole 40 MG VIAL IVP ×2 (09:24→19:39)
[2017-11-01] MEDS: methylPREDNISolone SUCC 40 MG VIAL 20 MG IVP (09:25)
[2017-11-01] MEDS: Nystatin POWDER 15 GM JAR TP ×3 (09:26→19:51)
[2017-11-01] MEDS: Insulin Glargine 300 UNITS/3 ML PEN 80 UNITS SC ×2 (09:26→19:40)
--- NOTE | 2017-11-01 09:26 | CMPROGNOTE_ITS ---
- If Service Date Differs Date of service: 11/01/17 Time of Service: 09:21 Care Management Progress Note S/O: Brendan is resting when CM enters the room. CM reviewed patient with primary nurse and he was presented at interdisciplinary rounds. Brendan remains on IV antibiotics and in the ICU. Anticipate no change in patients status today he will plan to return to the [facility] at time of discharge. A: Brendan is a 57 year old male admitted with UTI sepsis in the setting of chronic illness. Brendan is disabled and a resident of the [facility]. P: Brendan will be discharged back to the [facility] when medically ready per provider. He is receiving at least a 10 day course of IV antibiotics for sepsis. He will transition back to the [facility] via RCT wheelchair van.
[2017-11-01] MEDS: Insulin Aspart 300 UNITS/3 ML PEN SC ×2 (09:27→16:58)
[2017-11-01] MEDS: Venlafaxine 37.5 MG CAPCR 75 MG PO (09:28)
[2017-11-01] MEDS: carBAMazepine 200 MG TAB 100 MG PO ×2 (09:28→19:37)
[2017-11-01] MEDS: amLODIPine 5 MG TAB 10 MG PO (09:28)
[2017-11-01] MEDS: Gabapentin 800 MG TAB PO ×3 (09:29→19:37)
--- NOTE | 2017-11-01 10:56 | W.PM.PROGNOT ---
Assessment and Plan (1) Sepsis: Current visit: Yes Status: Acute Appears resolved. Mr. Corley as evidence of enterococcus faecalis UTI that is sensitive to ampicillin, as well as blood cultures positive for group C strep as etiology. While chest x-ray shows possible pneumonia versus mild CHF, clinically the patient did not appear to have any pulmonary symptoms. Discussed case with infectious disease at [facility]. Vancomycin and Zosyn were discontinued after 2 days of treatment, and patient was initiated on renaly dosed Ampicillin for 2 days. However, while technically afebrile the patient had 2 elevations in temperature of 37.6 and 37.8 overnight on 10/30 and 10/31, slight worsening in his WBC that had been improving dramatically (Despite decrease in steroid dosing), as well as feeling overall worse. Given above Mr. Corley's antibiotic regimen was changed back to Vancomycin and Zosyn for additional pulmonary coverage (HCAP as patient is a chronic half-way resident). No further elevation in temperature, and with good reduction in WBC this morning. Patient feels well. Continue current regimen. (2) JESUS (acute kidney injury): Current visit: Yes Status: Acute Evidence of acute kidney injury superimposed on chronic kidney disease. This is in the setting of acute illness and sepsis, with a transient decrease in urinary output. Improvement in creatinine and normal potassium levels by by labs again this morning. Current creatinine is 2.17 down from 2.17, 2.81 and 3 previously, with a baseline of approximately 1.5-2. Monitor renal function carefully, avoid nephrotoxins, and renaly dose medications when appropriate. As the patient is overall volume overloaded and has hyperkalemia will continue low dose IV furosemide and monitor renal function carefully. Discontinued Kayexalate as hyperkalemia resolved. (3) UTI (urinary tract infection) due to Enterococcus: Current visit: No Status: Chronic UTI with evidence of pansensitive enterococcus faecalis. Ampicillin discontinued as above - reinitiating Vancomycin. Day #6 total of antibiotics. (4) Diabetes mellitus type 2, controlled: Current visit: Yes Status: Chronic Continue basal insulin, but changed to resistance sliding scale as the patient's blood sugars were grossly elevated. This is in the setting of both infection as well as stress dose steroid use. Decrease steroids again today. (5) Hypertension: Current visit: Yes Status: Chronic Initially hypotensive in the setting of sepsis, now hypertensive. IV fluids discontinued. Continue increased dose of amlodipine and metoprolol. Carefully initiate alpha lia today. We will continue to hold ARYA inhibitor in the setting of acute kidney injury on CKD. Continue prn IV Hydralazine. Monitor and consider initiation of additional agent if needed. Also on IV lasix. (6) Heme positive stool: Current visit: Yes Status: Acute Increased output through ostomy in setting of Kayexalate use, tested Heme +. Patient is chronically on steroids - change low dose oral PPI to IV BID dosing. Monitor Hgb and stool output closely. (7) Anxiety: Current visit: Yes Status: Chronic Currently on both SNRI as well as SSRI therapy (8) Chronic pain: Current visit: Yes Status: Chronic Continue current pain regimen. (9) CAD (coronary artery disease): Current visit: Yes Status: Chronic Noted. Appears quiescent. (10) Rheumatoid arthritis: Current visit: Yes Status: Chronic Maintained on Humira as an outpatient, as well as daily prednisone therapy. (11) Crohns disease: Current visit: Yes Status: Chronic Status post total colectomy, with ostomy in place that appears to be functioning well. (12) Chronic insomnia: Current visit: Yes Status: Chronic Initiated nightly mirtazapine. (13) Anemia: Current visit: Yes Status: Acute Hemoglobin low but stable, with further workup showing a low iron, low TIBC, and normal ferritin at 124, indicating a likely mixed etiology for the patient's anemia. B12 and folic acid were also checked and normal. (14) Hypothyroidism: Current visit: Yes Status: Chronic Continue replacement therapy. (15) DVT prophylaxis: Current visit: Yes Status: Acute Continue subcutaneous heparin. Subjective Interval history since last seen: 57-year-old resident at the [facility] admitted from [facility] on October 27 with a diagnosis of bacteremia. Mr. Corley is a chronic resident at a nursing facility due to his significant disability from rheumatoid arthritis. He was sent in for further evaluation from the [facility] to [facility] ED due to development of high fevers, with further workup showing evidence of a significant leukocytosis, elevated lactate, and eventual development of hypotension. Initially attributed to potential lower extremity cellulitis, the patient was found to have evidence of a UTI and possible findings of pneumonia by chest x-ray, as well as excoriations in his skin (lower extremities) as potential nidus for infection. Mr. Corley had been steadily improving and remained afebrile with improving leukocytosis on broad spectrum antibiotics. His regimen was changed to IV Ampicillin, and over 24 hours later he developed temperatures of 37.8 and 37.6, and yesterday morning his CBC showed a lack of improvement in his WBC despite a decrease in his steroid dosing. Continued evidence of JESUS but now with resolved hyperkalemia and with significant improvement in creatinine. No overnight events reported other than the patient remaining significantly hypertensive. Patient has no complaints today. Exam Const General: cooperative, not healthy appearing, no acute distress, anxious and cushingoid Nutritional Appearance: obese Orientation: alert and oriented to person Resp Effort & Inspection: normal respiratory effort and able to speak in complete sentences Auscultation: clear to auscultation bilaterally ( ) Cardio Rate: regular rate Rhythm: regular rhythm Heart Sounds: S1 abnormal (Distant heart sounds, difficult to discern) GI Inspection: normal to inspection Palpation: soft and nontender Rectal Exam: visual inspection normal Skin General skin exam: no rashes or lesions noted (Chronic b/l LE hyperpigmentation) and dry skin Lesions: lesion noted (Linear scratches on both thighs) Neuro General: alert and oriented x3 Extrem General: normal to inspection and edema (4+ edema both lower extremities, with chronic appearing hyperpigmentation R>L) Laterality: bilateral Psych Appearance: disheveled Mental Status: mental status grossly normal Mood: anxious mood Attitude: guarded Objective Objective Clinical Data: Abnormal lab results 11/01/17 11/01/17 Range/Units 06:15 06:15 WBC 11.39 H (4.4-10.8) k/cumm RBC 4.34 L (4.50-6.00) m/cumm Hgb 8.3 L (13.5-17.5) g/dL Hct 28.8 L (40.0-50.0) % MCV 66.4 L (80-95) fL MCH 19.1 L (27.0-33.0) pg MCHC 28.8 L (32.0-36.0) g/dL RDW 18.7 H (11.8-14.1) % Plt Count 426 H (130-400) x1000/uL Absolute Neutrophils 9.25 H (1.2-6.7) k/cumm Absolute Lymphocytes 1.13 L (1.2-3.4) k/cumm Absolute Monocytes 0.80 H (0.11-0.7) k/cumm Chloride 111 H (98-107) mmol/L BUN 65 H (7-18) mg/dL Creatinine 2.17 H (0.70-1.30) mg/dL Glucose 185 H (70-100) mg/dL Calcium 8.1 L (8.5-10.1) mg/dL Alkaline Phosphatase 185 H (46-116) U/L Albumin 2.2 L (3.4-5.0) g/dL Vital Signs Temp 37.1 C 11/01/17 03:29 Pulse 66 11/01/17 10:00 Resp 27 H 11/01/17 10:00 BP 172/80 H 11/01/17 10:00 Pulse Ox 93 L 11/01/17 03:29 Intake & Output 10/31/17 10/31/17 11/01/17 11:59 23:59 11:59 Intake Total 750 / 750 1050 / 1050 750 / 750 Output Total 1350 / 1350 3225 / 3225 4220 / 4220 Balance -600 / -600 -2175 / -2175 -3470 / -3470 Weight 137 kg 134.8 kg Intake: IV 50 / 50 650 / 650 50 / 50 Oral 700 / 700 400 / 400 700 / 700 Output: Urine 950 / 950 2950 / 2950 3635 / 3635 Stool 400 / 400 275 / 275 585 / 585 Other: Urine Color Yellow Yellow Yellow Urine Appearance Clear Clear Clear Urine Odor None Comment Ruiz intact and draining clear yellow urine. RN assisted pt's primary RN by emptying pt's ruiz bag Voiding Methods Indwelling Catheter Laboratory Results WBC 11.39 k/cumm (4.4-10.8) H 11/01/17 06:15 RBC 4.34 m/cumm (4.50-6.00) L 11/01/17 06:15 Hgb 8.3 g/dL (13.5-17.5) L 11/01/17 06:15 Hct 28.8 % (40.0-50.0) L 11/01/17 06:15 MCV 66.4 fL (80-95) L 11/01/17 06:15 MCH 19.1 pg (27.0-33.0) L 11/01/17 06:15 MCHC 28.8 g/dL (32.0-36.0) L 11/01/17 06:15 RDW 18.7 % (11.8-14.1) H 11/01/17 06:15 Plt Count 426 x1000/uL (130-400) H 11/01/17 06:15 MPV 10.2 fL (8.0-11.0) 11/01/17 06:15 Immature Gran % 1.4 11/01/17 06:15 Neutrophils % 81.2 11/01/17 06:15 Lymphocytes % 9.9 11/01/17 06:15 Monocytes % 7.0 11/01/17 06:15 Eosinophils % 0.3 11/01/17 06:15 Basophils % 0.2 11/01/17 06:15 Absolute Neutrophils 9.25 k/cumm (1.2-6.7) H 11/01/17 06:15 Band Neutrophils 0.0 % 10/31/17 06:42 Absolute Lymphocytes 1.13 k/cumm (1.2-3.4) L 11/01/17 06:15 Absolute Monocytes 0.80 k/cumm (0.11-0.7) H 11/01/17 06:15 Absolute Eosinophils 0.03 k/cumm (0.0-0.7) 11/01/17 06:15 Absolute Basophils 0.02 k/cumm (0.0-0.2) 11/01/17 06:15 Metamyelocytes 1.0 % 10/28/17 06:30 Differential Comment Rbc morph reviewed 11/01/17 06:15 Atypical Lymphocytes 0 10/31/17 06:42 RBC Morphology See below 11/01/17 06:15 Polychromasia Present 10/29/17 06:40 Hypochromasia 3+ 11/01/17 06:15 Poikilocytosis 2+ 11/01/17 06:15 Basophilic Stippling Present 11/01/17 06:15 Anisocytosis 3+ 11/01/17 06:15 Microcytosis 3+ 11/01/17 06:15 Ovalocytes 3+ 11/01/17 06:15 PT 10.9 sec (9.3-10.8) H 09/03/18 18:02 INR 1.1 (1.0-3.5) 10/27/17 18:02 Sodium 143 mmol/L (136-145) 11/01/17 06:15 Potassium 4.5 mmol/L (3.5-5.1) 11/01/17 06:15 Chloride 111 mmol/L (98-107) H 11/01/17 06:15 Carbon Dioxide 25.7 mmol/L (21.0-32.0) 11/01/17 06:15 Anion Gap 6.3 mmol/L (3-11) 11/01/17 06:15 BUN 65 mg/dL (7-18) H 11/01/17 06:15 Creatinine 2.17 mg/dL (0.70-1.30) H 11/01/17 06:15 Estimated GFR/1.73 m2 31.39 (mL/min/1.73m2) 11/01/17 06:15 Glucose 185 mg/dL (70-100) H 11/01/17 06:15 Hemoglobin A1c 6.2 % (4.5-6.2) 10/28/17 06:30 Lactate 0.9 mmol/L (0.6-1.4) 10/28/17 09:48 Calcium 8.1 mg/dL (8.5-10.1) L 11/01/17 06:15 Iron 8 ug/dL (50-175) L 10/29/17 06:40 TIBC 245 ug/dL (250-450) L 10/29/17 06:40 Transferrin % Sat 3 % (20-55) L 10/29/17 06:40 Ferritin 124 ng/mL (8-388) 10/29/17 06:40 Total Bilirubin 0.4 mg/dL (0.2-1.0) 11/01/17 06:15 AST 16 U/L (15-37) 11/01/17 06:15 ALT 19 U/L (12-78) 11/01/17 06:15 Alkaline Phosphatase 185 U/L (46-116) H 11/01/17 06:15 NT-Pro-B Natriuret Pep 4180 pg/mL (-299) H 10/28/17 06:30 Total Protein 7.0 g/dL (6.4-8.2) 09/08/18 06:15 Albumin 2.2 g/dL (3.4-5.0) L 11/01/17 06:15 Vitamin B12 912 pg/mL (193-986) 10/29/17 06:40 Folate 14.1 ng/mL (8.6-20.0) 10/29/17 06:40 Urine Color Yellow (Yellow) 10/27/17 18:10 Urine Clarity Clear 10/27/17 18:10 Urine pH 5.5 (5-8) 10/27/17 18:10 Ur Specific Blackwell 1.020 (1.005-1.025) 10/27/17 18:10 Urine Protein >=300 mg/dL (Negative) H 10/27/17 18:10 Urine Ketones Negative mg/dL (Negative) 10/27/17 18:10 Urine Blood Small (Negative) H 10/27/17 18:10 Urine Nitrite Negative (Negative) 10/27/17 18:10 Urine Bilirubin Negative (Negative) 10/27/17 18:10 Urine Urobilinogen 0.2 EU/dL (Up TO 0.2) 10/27/17 18:10 Ur Leukocyte Esterase Trace (Negative) H 10/27/17 18:10 Urine RBC 10-20 (0-2) H 10/27/17 18:10 Urine WBC 20-50 HPF (0-5) 10/27/17 18:10 Ur Epithelial Cells Few HPF (Negative) 10/27/17 18:10 Urine Crystals Negative HPF (Negative) 10/27/17 18:10 Urine Bacteria Moderate HPF (Negative) 10/27/17 18:10 Urine Casts 0-2 coarse granular LPF (Negative) 10/27/17 18:10 Urine Mucus Negative (Negative) 10/27/17 18:10 Urine Other Few transitional (Negative) 10/27/17 18:10 Ur Culture Indicated? Yes 10/27/17 18:10 Urine Glucose Negative mg/dL (Negative) 10/27/17 18:10 Patient ABO/Rh AB Negative 10/31/17 00:23 Antibody Screen Negative 10/31/17 00:23
--- NOTE | 2017-11-01 11:05 | PT.INTREAT ---
PT Notes Inpatient Physical Therapy Treatment Note PRECAUTIONS:Fall SUBJECTIVE: Brendan is agreeable to PT OBJECTIVE: PAIN: No c/o pain BED MOBILITY/TRANSFERS Sit-stand: Min A (from low surface) Stand-sit: SBA GAIT Assistive Device: Bariatric FWW Weight bearing: Full Assist: SBA Distance: 60' Deviation: SOB THEREX: Ankle pumps performed x20, bilaterally ASSESSMENT: Patient tolerated session with increased SOB and fatigue. Patient would benefit from continued gait and transfer training as well as strengthening to improve ability to perform functional tasks. PLAN: Continue with PT's POC TREATMENT CODE/TIME: 20 minutes; TA Intake Vital Signs 10/27/17 17:28 10/27/17 17:35 10/27/17 17:37 10/27/17 17:40 10/27/17 17:45 10/27/17 17:50 10/27/17 18:00 10/27/17 18:01 10/27/17 18:10 10/27/17 18:15 10/27/17 18:20 10/27/17 18:22 10/27/17 18:30 10/27/17 18:31 10/27/17 18:40 10/27/17 18:45 10/27/17 18:50 10/27/17 19:00 10/27/17 19:01 10/27/17 19:10 10/27/17 19:15 10/27/17 19:20 10/27/17 19:30 10/27/17 19:40 10/27/17 19:41 10/27/17 19:45 10/27/17 19:50 10/27/17 19:50 10/27/17 19:54 10/27/17 20:00 10/27/17 20:01 Height 6 ft 1 in 6 ft 1 in Weight 141.4 kg 141.4 kg 141.4 kg BP 170/58 H 203/123 H 200/85 H 191/154 H 170/58 H 168/53 H 151/61 H 136/92 H 153/61 H 147/59 H 132/59 L 135/54 L Position Respiration 32 H 25 H 28 H 31 H 24 23 26 H 29 H 24 26 H 26 H 24 25 H 20 25 H 21 29 H 28 H 22 31 H 29 H 20 25 H 32 H 29 H 37 H 38 H 37 H Pulse 110 H 108 H 104 H 111 H 105 H 106 H 105 H 102 H 101 H 98 H 98 H 96 H Temp 38.6 C H 39.7 C H Temp Source Skin Pulse Oximetry (%) 96 94 L 94 L 97 96 96 98 98 97 97 95 96 96 97 96 97 96 96 97 96 95 98 96 95 96 96 95 95 Oxygen Flow Rate 2 10/27/17 20:10 10/27/17 20:11 10/27/17 20:15 10/27/17 20:20 10/27/17 21:14 10/27/17 22:06 10/28/17 01:29 10/28/17 02:43 10/28/17 02:47 10/28/17 03:40 10/28/17 04:01 10/28/17 04:05 10/28/17 04:15 10/28/17 04:23 10/28/17 04:31 10/28/17 04:46 10/28/17 05:04 10/28/17 05:05 10/28/17 05:18 10/28/17 05:32 10/28/17 05:33 10/28/17 05:47 10/28/17 06:02 10/28/17 06:17 10/28/17 06:20 10/28/17 07:45 10/28/17 08:45 10/28/17 08:57 10/28/17 09:01 10/28/17 09:30 10/28/17 09:56 10/28/17 10:22 141.4 kg 134.7 kg 137/55 L 113/67 89/39 L 81/50 L 80/30 L 87/42 L 89/45 L 95/45 L 111/46 L 103/51 L 92/48 L 102/52 L 100/44 L 99/45 L 97/58 L 94/48 L 113/59 L 119/64 125/51 L 31 H 35 H 31 H 24 41 H 43 H 26 H 29 H 36 H 21 32 H 29 H 31 H 32 H 31 H 34 H 24 18 22 19 17 94 H 94 H 90 89 84 86 84 87 87 86 86 86 85 85 85 85 77 74 73 68 39.5 C H 39.3 C H 39.5 C H 39.2 C H 38.6 C H 38.4 C H 39.4 C H 39.2 C H 38.1 C H 36.5 C 36.8 C 36.3 C L Tympanic Tympanic Tympanic Tympanic Temporal Artery Scan Temporal Artery Scan Temporal Artery Scan Tympanic 97 97 98 93 L 90 L 95 0 0 2 2 10/28/17 10:40 10/28/17 11:12 10/28/17 12:10 10/28/17 12:48 10/28/17 12:50 10/28/17 13:57 10/28/17 14:01 10/28/17 14:20 10/28/17 14:30 10/28/17 14:40 10/28/17 14:50 10/28/17 15:00 10/28/17 15:01 10/28/17 15:10 10/28/17 15:20 10/28/17 15:30 10/28/17 15:40 10/28/17 15:50 10/28/17 16:00 10/28/17 16:01 10/28/17 16:15 10/28/17 16:15 10/28/17 16:20 10/28/17 16:40 10/28/17 16:50 10/28/17 17:02 10/28/17 18:01 10/28/17 19:00 10/28/17 20:00 10/28/17 20:39 10/28/17 21:00 10/28/17 22:00 106/58 L 115/63 135/75 139/70 149/75 H 151/74 H 110/52 L 136/57 L 188/66 H 12 18 21 16 15 17 16 18 18 18 18 15 20 24 15 19 19 17 18 19 19 17 22 19 21 24 26 H 66 60 61 63 64 66 67 70 82 36.3 C L 36.3 C L 36.2 C L 36.8 C 37.6 C H Temporal Artery Scan Temporal Artery Scan Temporal Artery Scan 100 99 0 0 10/28/17 23:07 10/28/17 23:08 10/28/17 23:34 10/29/17 00:34 10/29/17 01:00 10/29/17 02:00 10/29/17 03:07 10/29/17 06:00 10/29/17 07:00 10/29/17 09:30 10/29/17 09:30 10/29/17 09:48 10/29/17 11:10 10/29/17 11:21 10/29/17 14:29 10/29/17 14:30 10/29/17 14:51 10/29/17 15:00 10/29/17 15:54 10/29/17 16:30 10/29/17 16:33 10/29/17 17:00 10/29/17 17:06 10/29/17 18:00 10/29/17 19:34 10/29/17 21:44 10/29/17 22:00 10/29/17 23:00 10/29/17 23:16 10/30/17 00:40 10/30/17 00:40 10/30/17 01:16 135 kg 169/94 H 169/94 H 156/76 H 127/80 143/85 H 163/91 H 168/89 H 168/89 H 166/86 H 184/94 H 165/94 H 190/88 H 171/95 H 171/95 H 176/88 H Supine Supine Supine 26 H 16 22 22 24 20 18 15 19 17 18 22 24 16 17 17 20 25 H 25 H 19 18 75 75 74 83 76 70 66 65 68 74 70 73 68 70 67 37.9 C H 37.9 C H 35.6 C L 36.7 C 36.6 C 36.8 C 36.8 C 36.6 C 36.5 C 36.5 C 36.7 C Temporal Artery Scan Temporal Artery Scan Temporal Artery Scan Temporal Artery Scan Temporal Artery Scan Temporal Artery Scan Temporal Artery Scan Temporal Artery Scan 97 96 96 100 97 98 0 0 0 0 0 0 10/30/17 01:34 10/30/17 02:00 10/30/17 02:25 10/30/17 03:00 10/30/17 03:00 10/30/17 03:01 10/30/17 04:00 10/30/17 04:01 10/30/17 05:01 10/30/17 06:00 10/30/17 06:00 10/30/17 06:01 10/30/17 07:01 10/30/17 07:05 10/30/17 08:23 10/30/17 09:00 10/30/17 09:15 10/30/17 10:00 10/30/17 11:00 10/30/17 11:30 10/30/17 12:00 10/30/17 12:08 10/30/17 12:15 10/30/17 13:30 10/30/17 14:26 10/30/17 15:15 10/30/17 15:17 10/30/17 15:18 10/30/17 16:00 10/30/17 16:01 10/30/17 17:00 10/30/17 18:31 137 kg 189/97 H 187/95 H 187/95 H 182/90 H 182/90 H 195/111 H 187/99 H 187/89 H 187/95 H 191/94 H 171/77 H 208/108 H 193/93 H 200/90 H 200/90 H 184/86 H 193/87 H Supine Supine Supine Sitting 22 19 17 17 14 16 18 18 21 14 16 19 16 19 17 19 14 19 21 19 20 21 19 17 19 18 19 72 69 70 67 64 65 63 65 65 64 72 89 78 68 71 67 69 36.1 C L 36.5 C 37.1 C 36.5 C 36.6 C Temporal Artery Scan Temporal Artery Scan Tympanic Temporal Artery Scan Temporal Artery Scan 95 98 97 95 98 0 0 0 0 0 10/30/17 21:35 10/30/17 22:00 10/30/17 22:01 10/30/17 23:00 10/30/17 23:02 10/30/17 23:50 10/31/17 00:00 10/31/17 00:02 10/31/17 00:24 10/31/17 01:01 10/31/17 02:01 10/31/17 02:02 10/31/17 02:50 10/31/17 03:00 10/31/17 03:01 10/31/17 06:00 10/31/17 06:00 10/31/17 07:01 10/31/17 07:15 10/31/17 08:01 10/31/17 08:20 10/31/17 08:22 10/31/17 11:32 10/31/17 12:21 10/31/17 13:46 10/31/17 16:50 10/31/17 17:24 10/31/17 18:01 10/31/17 19:01 10/31/17 19:10 10/31/17 19:10 10/31/17 19:42 137 kg 183/92 H 197/95 H 196/96 H 135/54 L 189/85 H 182/91 H 166/81 H 180/85 H 186/81 H 183/81 H 183/81 H 157/77 H 151/73 H 133/82 172/86 H 164/81 H 190/87 H 193/83 H 191/84 H 132/104 H Sitting Left Lateral Supine Supine Supine Supine Supine 20 29 H 26 H 22 26 H 27 H 28 H 29 H 29 H 29 H 26 H 20 25 H 27 H 19 24 20 19 24 27 H 27 H 14 66 64 72 68 68 76 82 78 79 79 78 56 L 61 64 64 78 72 79 81 79 84 83 37.4 C 37.8 C H 37.8 C H 37.0 C 37.6 C H 36.8 C 36.8 C 36.3 C L 37.2 C 37 C 37 C Temporal Artery Scan Tympanic Temporal Artery Scan Temporal Artery Scan Tympanic Temporal Artery Scan Temporal Artery Scan Temporal Artery Scan 95 97 96 96 93 L 93 L 0 0 0 0 0 0 0 10/31/17 20:00 10/31/17 21:01 10/31/17 21:39 10/31/17 22:01 10/31/17 23:01 10/31/17 23:10 10/31/17 23:41 11/01/17 00:01 11/01/17 01:01 11/01/17 02:16 11/01/17 03:01 11/01/17 03:29 11/01/17 04:01 11/01/17 05:01 11/01/17 05:18 11/01/17 06:01 11/01/17 06:35 11/01/17 07:00 11/01/17 08:00 11/01/17 09:00 11/01/17 10:00 134.8 kg 175/95 H 188/89 H 188/80 H 195/84 H 161/66 H 182/67 H 195/73 H 196/87 H 192/106 H 189/82 H 193/83 H 214/83 H 181/71 H 172/87 H 181/79 H 146/74 H 172/83 H 172/80 H Supine Supine 23 27 H 29 H 33 H 30 H 27 H 19 28 H 27 H 22 22 27 H 21 19 19 18 20 18 18 27 H 86 81 79 81 87 79 89 87 84 82 80 79 73 71 77 78 70 57 L 60 66 37.1 C 37.1 C Temporal Artery Scan 93 L 93 L 0 0
--- NOTE | 2017-11-01 11:08 | PTTR_ITS ---
PT Notes Inpatient Physical Therapy Treatment Note PRECAUTIONS:Fall SUBJECTIVE: Brendan is agreeable to PT OBJECTIVE: PAIN: No c/o pain BED MOBILITY/TRANSFERS Sit-stand: Min A (from low surface) Stand-sit: SBA GAIT Assistive Device: Bariatric FWW Weight bearing: Full Assist: SBA Distance: 60' Deviation: SOB THEREX: Ankle pumps performed x20, bilaterally ASSESSMENT: Patient tolerated session with increased SOB and fatigue. Patient would benefit from continued gait and transfer training as well as strengthening to improve ability to perform functional tasks. PLAN: Continue with PT's POC TREATMENT CODE/TIME: 20 minutes; TA Intake Vital Signs 3 l l l l 10/27/17 17:28 l l 10/27/17 17:35 l l 10/27/17 17:37 l l 10/27/17 17:40 l l 10/27/17 17:45 l l 10/27/17 17:50 l l 10/27/17 18:00 l l 10/27/17 18:01 l l 10/27/17 18:10 l l 10/27/17 18:15 l l 10/27/17 18:20 l l 10/27/17 18:22 l l 10/27/17 18:30 l l 10/27/17 18:31 l l 10/27/17 18:40 l l 10/27/17 18:45 l l 10/27/17 18:50 l l 10/27/17 19:00 l l 10/27/17 19:01 l l 10/27/17 19:10 l l 10/27/17 19:15 l l 10/27/17 19:20 l l 10/27/17 19:30 l l 10/27/17 19:40 l l 10/27/17 19:41 l l 10/27/17 19:45 l l 10/27/17 19:50 l l 10/27/17 19:50 l l 10/27/17 19:54 l l 10/27/17 20:00 l l 10/27/17 20:01 l l 10/27/17 20:10 l l 10/27/17 20:11 l l 10/27/17 20:15 l l 10/27/17 20:20 l l 10/27/17 21:14 l l 10/27/17 22:06 l l 10/28/17 01:29 l l 10/28/17 02:43 l l 10/28/17 02:47 l l 10/28/17 03:40 l l 10/28/17 04:01 l l 10/28/17 04:05 l l 10/28/17 04:15 l l 10/28/17 04:23 l l 10/28/17 04:31 l l 10/28/17 04:46 l l 10/28/17 05:04 l l 10/28/17 05:05 l l 10/28/17 05:18 l l 10/28/17 05:32 l l 10/28/17 05:33 l l 10/28/17 05:47 l l 10/28/17 06:02 l l 10/28/17 06:17 l l 10/28/17 06:20 l l 10/28/17 07:45 l l 10/28/17 08:45 l l 10/28/17 08:57 l l 10/28/17 09:01 l l 10/28/17 09:30 l l 10/28/17 09:56 l l 10/28/17 10:22 l l 10/28/17 10:40 l l 10/28/17 11:12 l l 10/28/17 12:10 l l 10/28/17 12:48 l l 10/28/17 12:50 l l 10/28/17 13:57 l l 10/28/17 14:01 l l 10/28/17 14:20 l l 10/28/17 14:30 l l 10/28/17 14:40 l l 10/28/17 14:50 l l 10/28/17 15:00 l l 10/28/17 15:01 l l 10/28/17 15:10 l l 10/28/17 15:20 l l 10/28/17 15:30 l l 10/28/17 15:40 l l 10/28/17 15:50 l l 10/28/17 16:00 l l 10/28/17 16:01 l l 10/28/17 16:15 l l 10/28/17 16:15 l l 10/28/17 16:20 l l 10/28/17 16:40 l l 09/04/18 16:50 l l 10/28/17 17:02 l l 10/28/17 18:01 l l 10/28/17 19:00 l l 10/28/17 20:00 l l 10/28/17 20:39 l l 10/28/17 21:00 l l 10/28/17 22:00 l l 10/28/17 23:07 l l 10/28/17 23:08 l l 10/28/17 23:34 l l 10/29/17 00:34 l l 10/29/17 01:00 l l 10/29/17 02:00 l l 10/29/17 03:07 l l 10/29/17 06:00 l l 10/29/17 07:00 l l 10/29/17 09:30 l l 10/29/17 09:30 l l 10/29/17 09:48 l l 10/29/17 11:10 l l 10/29/17 11:21 l l 10/29/17 14:29 l l 10/29/17 14:30 l l 10/29/17 14:51 l l 10/29/17 15:00 l l 10/29/17 15:54 l l 10/29/17 16:30 l l 10/29/17 16:33 l l 10/29/17 17:00 l l 10/29/17 17:06 l l 10/29/17 18:00 l l 10/29/17 19:34 l l 10/29/17 21:44 l l 10/29/17 22:00 l l 10/29/17 23:00 l l 10/29/17 23:16 l l 10/30/17 00:40 l l 10/30/17 00:40 l l 10/30/17 01:16 l l 10/30/17 01:34 l l 10/30/17 02:00 l l 10/30/17 02:25 l l 10/30/17 03:00 l l 10/30/17 03:00 l l 10/30/17 03:01 l l 10/30/17 04:00 l l 10/30/17 04:01 l l 10/30/17 05:01 l l 10/30/17 06:00 l l 10/30/17 06:00 l l 10/30/17 06:01 l l 10/30/17 07:01 l l 10/30/17 07:05 l l 10/30/17 08:23 l l 10/30/17 09:00 l l 10/30/17 09:15 l l 10/30/17 10:00 l l 10/30/17 11:00 l l 10/30/17 11:30 l l 10/30/17 12:00 l l 10/30/17 12:08 l l 10/30/17 12:15 l l 10/30/17 13:30 l l 10/30/17 14:26 l l 10/30/17 15:15 l l 10/30/17 15:17 l l 10/30/17 15:18 l l 10/30/17 16:00 l l 10/30/17 16:01 l l 10/30/17 17:00 l l 10/30/17 18:31 l l 10/30/17 21:35 l l 10/30/17 22:00 l l 10/30/17 22:01 l l 10/30/17 23:00 l l 10/30/17 23:02 l l 10/30/17 23:50 l l 10/31/17 00:00 l l 10/31/17 00:02 l l 10/31/17 00:24 l l 10/31/17 01:01 l l 10/31/17 02:01 l l 10/31/17 02:02 l l 10/31/17 02:50 l l 10/31/17 03:00 l l 10/31/17 03:01 l l 10/31/17 06:00 l l 10/31/17 06:00 l l 10/31/17 07:01 l l 10/31/17 07:15 l l 10/31/17 08:01 l l 10/31/17 08:20 l l 10/31/17 08:22 l l 10/31/17 11:32 l l 10/31/17 12:21 l l 10/31/17 13:46 l l 10/31/17 16:50 l l 10/31/17 17:24 l l 10/31/17 18:01 l l 10/31/17 19:01 l l 10/31/17 19:10 l l 10/31/17 19:10 l l 10/31/17 19:42 l l 10/31/17 20:00 l l 10/31/17 21:01 l l 10/31/17 21:39 l l 10/31/17 22:01 l l 10/31/17 23:01 l l 10/31/17 23:10 l l 10/31/17 23:41 l l 11/01/17 00:01 l l 11/01/17 01:01 l l 11/01/17 02:16 l l 11/01/17 03:01 l l 11/01/17 03:29 l l 11/01/17 04:01 l l 11/01/17 05:01 l l 11/01/17 05:18 l l 11/01/17 06:01 l l 11/01/17 06:35 l l 11/01/17 07:00 l l 11/01/17 08:00 l l 11/01/17 09:00 l l 11/01/17 10:00 l l Height 6 ft 1 in 6 ft 1 in l l Weight 141.4 kg 141.4 kg 141.4 kg 141.4 kg 134.7 kg 135 kg 137 kg 137 kg 134.8 kg l l BP 170/58 H 203/123 H 200/85 H 191/154 H 170/58 H 168/53 H 151/61 H 136/92 H 153/61 H 147/59 H 132/59 L 135/54 L 137/55 L 113/67 89/39 L 81/50 L 80/30 L 87/42 L 89/45 L 95/45 L 111/46 L 103/51 L 92 /48 L 102/52 L 100/44 L 99/45 L 97/58 L 94/48 L 113/ 59 L 119/64 125/51 L 106/58 L 115/63 135/75 139/70 149/75 H 151/74 H 110/52 L 136/57 L 188/66 H 169/94 H 169/94 H 156/76 H 127/80 143/85 H 163/91 H 168/89 H 168/89 H 166/86 H 184/94 H 165/94 H 190/88 H 171/95 H 171/95 H 176/88 H 189/97 H 187/95 H 187/95 H 182/90 H 182/90 H 195/ 111 H 187/99 H 187/89 H 187/95 H 191/94 H 171/77 H 208/108 H 193/93 H 200/90 H 200/90 H 184/86 H 193/87 H 183/92 H 197/95 H 196/96 H 135/54 L 189/85 H 182/ 91 H 166/81 H 180/85 H 186/81 H 183/81 H 183/81 H 157/77 H 151/73 H 133/82 172/86 H 164/81 H 190/87 H 193/83 H 191/84 H 132/104 H 175/95 H 188/89 H 188/80 H 195/84 H 161/66 H 182/67 H 195/73 H 196/87 H 192/106 H 189/82 H 193/83 H 214 /83 H 181/71 H 172/87 H 181/79 H 146/74 H 172/83 H 172/80 H l l Position Supine Supine Supine Supine Supine Supine Sitting Sitting Left Lateral Supine Supine Supine Supine Supine Supine Supine l l Respiration 32 H 25 H 28 H 31 H 24 23 26 H 29 H 24 26 H 26 H 24 25 H 20 25 H 21 29 H 28 H 22 31 H 29 H 20 25 H 32 H 29 H 37 H 38 H 37 H 31 H 35 H 31 H 24 41 H 43 H 26 H 29 H 36 H 21 32 H 29 H 31 H 32 H 31 H 34 H 24 18 22 19 17 12 18 21 16 15 17 16 18 18 18 18 15 20 24 15 19 19 17 18 19 19 17 22 19 21 24 26 H 26 H 16 22 22 24 20 18 15 19 17 18 22 24 16 17 17 20 25 H 25 H 19 18 22 19 17 17 14 16 18 18 21 14 16 19 16 19 17 19 14 19 21 19 20 21 19 17 19 18 19 20 29 H 26 H 22 26 H 27 H 28 H 29 H 29 H 29 H 26 H 20 25 H 27 H 19 24 20 19 24 27 H 27 H 14 23 27 H 29 H 33 H 30 H 27 H 19 28 H 27 H 22 22 27 H 21 19 19 18 20 18 18 27 H l l Pulse 110 H 108 H 104 H 111 H 105 H 106 H 105 H 102 H 101 H 98 H 98 H 96 H 94 H 94 H 90 89 84 86 84 87 87 86 86 86 85 85 85 85 77 74 73 68 66 60 61 63 64 66 67 70 82 75 75 74 83 76 70 66 65 68 74 70 73 68 70 67 72 69 70 67 64 65 63 65 65 64 72 89 78 68 71 67 69 66 64 72 68 68 76 82 78 79 79 78 56 L 61 64 64 78 72 79 81 79 84 83 86 81 79 81 87 79 89 87 84 82 80 79 73 71 77 78 70 57 L 60 66 l l Temp 38.6 C H 39.7 C H 39.5 C H 39.3 C H 39.5 C H 39.2 C H 38.6 C H 38.4 C H 39.4 C H 39.2 C H 38.1 C H 36.5 C 36.8 C 36.3 C L 36.3 C L 36.3 C L 36.2 C L 36.8 C 37.6 C H 37.9 C H 37.9 C H 35.6 C L 36.7 C 36.6 C 36.8 C 36.8 C 36.6 C 36.5 C 36.5 C 36.7 C 36.1 C L 36.5 C 37.1 C 36.5 C 36.6 C 37.4 C 37.8 C H 37.8 C H 37.0 C 37.6 C H 36.8 C 36.8 C 36.3 C L 37.2 C 37 C 37 C 37.1 C 37.1 C l l Temp Source Skin Tympanic Tympanic Tympanic Tympanic Temporal Artery Scan Temporal Artery Scan Temporal Artery Scan Tympanic Temporal Artery Scan Temporal Artery Scan Temporal Artery Scan Temporal Artery Scan Temporal Artery Scan Temporal Artery Scan Temporal Artery Scan Temporal Artery Scan Temporal Artery Scan Temporal Artery Scan Temporal Artery Scan Temporal Artery Scan Temporal Artery Scan Tympanic Temporal Artery Scan Temporal Artery Scan Temporal Artery Scan Tympanic Temporal Artery Scan Temporal Artery Scan Tympanic Temporal Artery Scan Temporal Artery Scan Temporal Artery Scan Temporal Artery Scan l l Pulse Oximetry (%) 96 94 L 94 L 97 96 96 98 98 97 97 95 96 96 97 96 97 96 96 97 96 95 98 96 95 96 96 95 95 97 97 98 93 L 90 L 95 100 99 97 96 96 100 97 98 95 98 97 95 98 95 97 96 96 93 L 93 L 93 L 93 L l l Oxygen Flow Rate 2 0 0 2 2 0 0 0 0 0 0 0 0 0 0 0 0 0 0 0 0 0 0 0 0 0 0
[2017-11-01] MEDS: Furosemide 20 MG/2 ML VIAL IVP (11:21)
[2017-11-01] MEDS: VANCOMYCIN 1,500 MG in Normal Saline 500 ML 500 MG IV (11:25)
[2017-11-01] MEDS: Terazosin 2 MG CAP PO ×2 (17:00→22:29)
[2017-11-01] MEDS: hydrALAZINE 25 MG TAB PO (19:38)
[2017-11-01] MEDS: Sertraline 50 MG TAB PO (19:38)
[2017-11-01] MEDS: risperiDONE 1 MG TAB 3 MG PO (22:29)
[2017-11-01] MEDS: Mirtazapine 15 MG TAB PO (22:30)
[2017-11-02] VITALS (26 sets, daily range): BP systolic 146–179; BP diastolic 63–84; PULSE 57–80; RESP 16–31; TEMP 36.7–37.3; O2SAT 95–96
[2017-11-02] MEDS: Levothyroxine 50 MCG TAB PO (05:49)
[2017-11-02] MEDS: Metoprolol 25 MG TAB PO ×2 (05:49→17:35)
[2017-11-02 07:09] LABS: Abs Immature Grans 0.17 k/cumm (0.0-0.09); Absolute Basophil Count 0.01 k/cumm (0.0-0.2); Absolute Eosinophil Count 0.36 k/cumm (0.0-0.7); Absolute Lymphocyte Count 1.21 k/cumm (1.2-3.4); Absolute Monocyte Count 0.77 k/cumm (0.11-0.7); Absolute Neutrophil Count 7.36 k/cumm (1.2-6.7); Basophils % 0.1; Eosinophils % 3.6; HGB 7.7 g/dL (13.5-17.5); Immature Grans % 1.7; Lymphocytes % 12.2; Mean Corp. HGB Concentration 28.5 g/dL (32.0-36.0); Mean Corpuscular Hemoglobin 19.1 pg (27.0-33.0); Mean Platelet Volume 10.7 fL (8.0-11.0); Monocytes % 7.8; Neutrophils % 74.6; RBC 4.03 m/cumm (4.50-6.00); RBC Distribution Width 18.5 % (11.8-14.1); White Blood Cell Count 9.88 k/cumm (4.4-10.8)
[2017-11-02 07:27] LABS: Platelet Count 423 x1000/uL (130-400)
[2017-11-02 07:28] LABS: Anisocytosis 3+; Diff Comment RBC Morph Reviewed; Hypochromasia 3+; Microcytosis 3+; Ovalocytes 3+; Poikilocytes 2+
[2017-11-02 07:29] LABS: ALT 17 U/L (12-78); AST 13 U/L (15-37); Albumin 2.1 g/dL (3.4-5.0); Alkaline Phosphatase 169 U/L (46-116); Anion Gap 9.4 mmol/L (3-11); BUN 59 mg/dL (7-18); Bilirubin, Total 0.4 mg/dL (0.2-1.0); CO2 25.6 mmol/L (21.0-32.0); CREATININE 2.29 mg/dL (0.70-1.30); Calcium 7.8 mg/dL (8.5-10.1); Chloride 112 mmol/L (98-107); Glucose 111 mg/dL (70-100); Sodium 147 mmol/L (136-145); Total Protein 6.2 g/dL (6.4-8.2)
[2017-11-02] MEDS: Normal Saline Flush 10 ML SYR IVP ×2 (08:59→20:06)
[2017-11-02] MEDS: methylPREDNISolone SUCC 40 MG VIAL 20 MG IVP (09:02)
[2017-11-02] MEDS: Pantoprazole 40 MG VIAL IVP ×2 (09:02→20:06)
[2017-11-02] MEDS: Terazosin 2 MG CAP 4 MG PO ×2 (09:03→20:06)
[2017-11-02] MEDS: Venlafaxine 37.5 MG CAPCR 75 MG PO (09:03)
[2017-11-02] MEDS: hydrALAZINE 25 MG TAB PO ×4 (09:03→20:07)
[2017-11-02] MEDS: amLODIPine 5 MG TAB 10 MG PO (09:04)
[2017-11-02] MEDS: Gabapentin 800 MG TAB PO (09:04)
[2017-11-02] MEDS: carBAMazepine 200 MG TAB 100 MG PO (09:04)
[2017-11-02] MEDS: Insulin Glargine 300 UNITS/3 ML PEN 80 UNITS SC (09:06)
[2017-11-02] MEDS: Nystatin POWDER 15 GM JAR TP ×3 (09:43→21:40)
[2017-11-02] MEDS: VANCOMYCIN 1,500 MG in Normal Saline 500 ML 500 MG IV (11:38)
[2017-11-02] MEDS: Insulin Aspart 300 UNITS/3 ML PEN SC ×2 (11:49→17:19)
--- NOTE | 2017-11-02 12:08 | PT.INTREAT ---
PT Notes Inpatient Physical Therapy Treatment Note PRECAUTIONS:Fall SUBJECTIVE: Brendan reports that he did not sleep well last night and feels pretty tired today. OBJECTIVE: PAIN: No c/o pain BED MOBILITY/TRANSFERS Sit-stand: Min A (from low surface) Stand-sit: SBA GAIT Assistive Device: Bariatric FWW Weight bearing: Full Assist: SBA Distance: 60' Deviation: SOB THEREX: Patient completed a LE strengthening program, as per flow sheet. Patient was able to tolerate a slight progression in his program today. ASSESSMENT: Patient tolerated session without complaints. He did require an extended rest following gait training due to significant SOB. He also required rests between exercises due to SOB and fatigue. PLAN: Continue with PT's POC TREATMENT CODE/TIME: 25 minutes; TA/TP Intake Vital Signs 10/27/17 17:28 10/27/17 17:35 10/27/17 17:37 10/27/17 17:40 10/27/17 17:45 10/27/17 17:50 10/27/17 18:00 10/27/17 18:01 10/27/17 18:10 10/27/17 18:15 10/27/17 18:20 10/27/17 18:22 10/27/17 18:30 10/27/17 18:31 10/27/17 18:40 10/27/17 18:45 10/27/17 18:50 10/27/17 19:00 10/27/17 19:01 10/27/17 19:10 10/27/17 19:15 10/27/17 19:20 10/27/17 19:30 10/27/17 19:40 10/27/17 19:41 10/27/17 19:45 10/27/17 19:50 10/27/17 19:50 10/27/17 19:54 10/27/17 20:00 10/27/17 20:01 Height 6 ft 1 in 6 ft 1 in Weight 141.4 kg 141.4 kg 141.4 kg BP 170/58 H 203/123 H 200/85 H 191/154 H 170/58 H 168/53 H 151/61 H 136/92 H 153/61 H 147/59 H 132/59 L 135/54 L Position Respiration 32 H 25 H 28 H 31 H 24 23 26 H 29 H 24 26 H 26 H 24 25 H 20 25 H 21 29 H 28 H 22 31 H 29 H 20 25 H 32 H 29 H 37 H 38 H 37 H Pulse 110 H 108 H 104 H 111 H 105 H 106 H 105 H 102 H 101 H 98 H 98 H 96 H Temp 38.6 C H 39.7 C H Temp Source Skin Pulse Oximetry (%) 96 94 L 94 L 97 96 96 98 98 97 97 95 96 96 97 96 97 96 96 97 96 95 98 96 95 96 96 95 95 Oxygen Flow Rate 2 10/27/17 20:10 10/27/17 20:11 10/27/17 20:15 10/27/17 20:20 10/27/17 21:14 10/27/17 22:06 10/28/17 01:29 10/28/17 02:43 10/28/17 02:47 10/28/17 03:40 10/28/17 04:01 10/28/17 04:05 10/28/17 04:15 10/28/17 04:23 10/28/17 04:31 10/28/17 04:46 10/28/17 05:04 10/28/17 05:05 10/28/17 05:18 10/28/17 05:32 10/28/17 05:33 10/28/17 05:47 10/28/17 06:02 10/28/17 06:17 10/28/17 06:20 10/28/17 07:45 10/28/17 08:45 10/28/17 08:57 10/28/17 09:01 10/28/17 09:30 10/28/17 09:56 10/28/17 10:22 141.4 kg 134.7 kg 137/55 L 113/67 89/39 L 81/50 L 80/30 L 87/42 L 89/45 L 95/45 L 111/46 L 103/51 L 92/48 L 102/52 L 100/44 L 99/45 L 97/58 L 94/48 L 113/59 L 119/64 125/51 L 31 H 35 H 31 H 24 41 H 43 H 26 H 29 H 36 H 21 32 H 29 H 31 H 32 H 31 H 34 H 24 18 22 19 17 94 H 94 H 90 89 84 86 84 87 87 86 86 86 85 85 85 85 77 74 73 68 39.5 C H 39.3 C H 39.5 C H 39.2 C H 38.6 C H 38.4 C H 39.4 C H 39.2 C H 38.1 C H 36.5 C 36.8 C 36.3 C L Tympanic Tympanic Tympanic Tympanic Temporal Artery Scan Temporal Artery Scan Temporal Artery Scan Tympanic 97 97 98 93 L 90 L 95 0 0 2 2 10/28/17 10:40 10/28/17 11:12 10/28/17 12:10 10/28/17 12:48 10/28/17 12:50 10/28/17 13:57 10/28/17 14:01 10/28/17 14:20 10/28/17 14:30 10/28/17 14:40 10/28/17 14:50 10/28/17 15:00 10/28/17 15:01 10/28/17 15:10 10/28/17 15:20 10/28/17 15:30 10/28/17 15:40 10/28/17 15:50 10/28/17 16:00 10/28/17 16:01 10/28/17 16:15 10/28/17 16:15 10/28/17 16:20 10/28/17 16:40 10/28/17 16:50 10/28/17 17:02 10/28/17 18:01 10/28/17 19:00 10/28/17 20:00 10/28/17 20:39 10/28/17 21:00 10/28/17 22:00 106/58 L 115/63 135/75 139/70 149/75 H 151/74 H 110/52 L 136/57 L 188/66 H 12 18 21 16 15 17 16 18 18 18 18 15 20 24 15 19 19 17 18 19 19 17 22 19 21 24 26 H 66 60 61 63 64 66 67 70 82 36.3 C L 36.3 C L 36.2 C L 36.8 C 37.6 C H Temporal Artery Scan Temporal Artery Scan Temporal Artery Scan 100 99 0 0 10/28/17 23:07 10/28/17 23:08 10/28/17 23:34 10/29/17 00:34 10/29/17 01:00 10/29/17 02:00 10/29/17 03:07 10/29/17 06:00 10/29/17 07:00 10/29/17 09:30 10/29/17 09:30 10/29/17 09:48 10/29/17 11:10 10/29/17 11:21 10/29/17 14:29 10/29/17 14:30 10/29/17 14:51 10/29/17 15:00 10/29/17 15:54 10/29/17 16:30 10/29/17 16:33 10/29/17 17:00 10/29/17 17:06 10/29/17 18:00 10/29/17 19:34 10/29/17 21:44 10/29/17 22:00 10/29/17 23:00 10/29/17 23:16 10/30/17 00:40 10/30/17 00:40 10/30/17 01:16 135 kg 169/94 H 169/94 H 156/76 H 127/80 143/85 H 163/91 H 168/89 H 168/89 H 166/86 H 184/94 H 165/94 H 190/88 H 171/95 H 171/95 H 176/88 H Supine Supine Supine 26 H 16 22 22 24 20 18 15 19 17 18 22 24 16 17 17 20 25 H 25 H 19 18 75 75 74 83 76 70 66 65 68 74 70 73 68 70 67 37.9 C H 37.9 C H 35.6 C L 36.7 C 36.6 C 36.8 C 36.8 C 36.6 C 36.5 C 36.5 C 36.7 C Temporal Artery Scan Temporal Artery Scan Temporal Artery Scan Temporal Artery Scan Temporal Artery Scan Temporal Artery Scan Temporal Artery Scan Temporal Artery Scan 97 96 96 100 97 98 0 0 0 0 0 0 10/30/17 01:34 10/30/17 02:00 10/30/17 02:25 10/30/17 03:00 10/30/17 03:00 10/30/17 03:01 10/30/17 04:00 10/30/17 04:01 10/30/17 05:01 10/30/17 06:00 10/30/17 06:00 10/30/17 06:01 10/30/17 07:01 10/30/17 07:05 10/30/17 08:23 10/30/17 09:00 10/30/17 09:15 10/30/17 10:00 10/30/17 11:00 10/30/17 11:30 10/30/17 12:00 10/30/17 12:08 10/30/17 12:15 10/30/17 13:30 10/30/17 14:26 10/30/17 15:15 10/30/17 15:17 10/30/17 15:18 10/30/17 16:00 10/30/17 16:01 10/30/17 17:00 10/30/17 18:31 137 kg 189/97 H 187/95 H 187/95 H 182/90 H 182/90 H 195/111 H 187/99 H 187/89 H 187/95 H 191/94 H 171/77 H 208/108 H 193/93 H 200/90 H 200/90 H 184/86 H 193/87 H Supine Supine Supine Sitting 22 19 17 17 14 16 18 18 21 14 16 19 16 19 17 19 14 19 21 19 20 21 19 17 19 18 19 72 69 70 67 64 65 63 65 65 64 72 89 78 68 71 67 69 36.1 C L 36.5 C 37.1 C 36.5 C 36.6 C Temporal Artery Scan Temporal Artery Scan Tympanic Temporal Artery Scan Temporal Artery Scan 95 98 97 95 98 0 0 0 0 0 10/30/17 21:35 10/30/17 22:00 10/30/17 22:01 10/30/17 23:00 10/30/17 23:02 10/30/17 23:50 10/31/17 00:00 10/31/17 00:02 10/31/17 00:24 10/31/17 01:01 10/31/17 02:01 10/31/17 02:02 10/31/17 02:50 10/31/17 03:00 10/31/17 03:01 10/31/17 06:00 10/31/17 06:00 10/31/17 07:01 10/31/17 07:15 10/31/17 08:01 10/31/17 08:20 10/31/17 08:22 10/31/17 11:32 10/31/17 12:21 10/31/17 13:46 10/31/17 16:50 10/31/17 17:24 10/31/17 18:01 10/31/17 19:01 10/31/17 19:10 10/31/17 19:10 10/31/17 19:42 137 kg 183/92 H 197/95 H 196/96 H 135/54 L 189/85 H 182/91 H 166/81 H 180/85 H 186/81 H 183/81 H 183/81 H 157/77 H 151/73 H 133/82 172/86 H 164/81 H 190/87 H 193/83 H 191/84 H 132/104 H Sitting Left Lateral Supine Supine Supine Supine Supine 20 29 H 26 H 22 26 H 27 H 28 H 29 H 29 H 29 H 26 H 20 25 H 27 H 19 24 20 19 24 27 H 27 H 14 66 64 72 68 68 76 82 78 79 79 78 56 L 61 64 64 78 72 79 81 79 84 83 37.4 C 37.8 C H 37.8 C H 37.0 C 37.6 C H 36.8 C 36.8 C 36.3 C L 37.2 C 37 C 37 C Temporal Artery Scan Tympanic Temporal Artery Scan Temporal Artery Scan Tympanic Temporal Artery Scan Temporal Artery Scan Temporal Artery Scan 95 97 96 96 93 L 93 L 0 0 0 0 0 0 0 10/31/17 20:00 10/31/17 21:01 10/31/17 21:39 10/31/17 22:01 10/31/17 23:01 10/31/17 23:10 10/31/17 23:41 11/01/17 00:01 11/01/17 01:01 11/01/17 02:16 11/01/17 03:01 11/01/17 03:29 11/01/17 04:01 11/01/17 05:01 11/01/17 05:18 11/01/17 06:01 11/01/17 06:35 11/01/17 07:00 11/01/17 08:00 11/01/17 08:30 11/01/17 09:00 11/01/17 10:00 11/01/17 12:30 11/01/17 13:09 11/01/17 13:12 11/01/17 14:01 11/01/17 15:01 11/01/17 16:00 11/01/17 16:00 11/01/17 16:02 11/01/17 16:13 11/01/17 16:15 134.8 kg 175/95 H 188/89 H 188/80 H 195/84 H 161/66 H 182/67 H 195/73 H 196/87 H 192/106 H 189/82 H 193/83 H 214/83 H 181/71 H 172/87 H 181/79 H 146/74 H 172/83 H 172/80 H 187/74 H 183/78 H 195/74 H 187/75 H 206/89 H 202/81 H 200/88 H 206/89 H Supine Supine Supine Sitting Supine 23 27 H 29 H 33 H 30 H 27 H 19 28 H 27 H 22 22 27 H 21 19 19 18 20 18 18 27 H 25 H 26 H 22 17 20 25 H 32 H 25 H 86 81 79 81 87 79 89 87 84 82 80 79 73 71 77 78 70 57 L 60 66 74 73 68 78 79 66 75 75 37.1 C 37.1 C 36.9 C 36.7 C 37.4 C Temporal Artery Scan Temporal Artery Scan Temporal Artery Scan Temporal Artery Scan 93 L 93 L 95 0 0 0 0 0 11/01/17 16:19 11/01/17 16:27 11/01/17 16:32 11/01/17 17:01 11/01/17 18:00 11/01/17 19:01 11/01/17 19:30 11/01/17 20:05 11/01/17 21:01 11/01/17 22:01 11/01/17 23:00 11/01/17 23:10 11/01/17 23:25 11/02/17 00:00 11/02/17 01:00 11/02/17 02:00 11/02/17 03:00 11/02/17 03:30 11/02/17 04:00 11/02/17 05:01 11/02/17 05:25 11/02/17 05:48 11/02/17 06:01 11/02/17 07:01 11/02/17 08:01 11/02/17 09:00 11/02/17 09:28 11/02/17 10:16 11/02/17 11:00 11/02/17 11:11 11/02/17 11:32 11/02/17 11:51 135.1 kg 207/85 H 209/87 H 208/93 H 164/79 H 174/82 H 152/71 H 176/73 H 176/78 H 172/67 H 175/75 H 161/65 H 160/71 H 167/68 H 166/63 H 177/74 H 171/63 H 168/67 H 176/69 H 146/63 H 153/65 H 157/73 H 168/78 H 149/71 H 156/76 H 156/82 H 166/73 H Supine Supine Supine Supine 29 H 24 28 H 20 32 H 23 23 26 H 28 H 25 H 23 23 31 H 27 H 26 H 30 H 23 22 19 31 H 29 H 22 22 22 26 H 26 H 16 22 16 76 79 78 81 86 66 79 63 64 68 71 79 79 71 71 69 72 79 71 72 75 75 57 L 60 63 63 75 69 77 75 36.6 C 37.1 C 37.1 C 37.1 C 37.0 C Temporal Artery Scan Temporal Artery Scan Temporal Artery Scan Temporal Artery Scan Temporal Artery Scan 95 95 95 95 0 0 0 0
--- NOTE | 2017-11-02 12:12 | PTTR_ITS ---
PT Notes Inpatient Physical Therapy Treatment Note PRECAUTIONS:Fall SUBJECTIVE: Brendan reports that he did not sleep well last night and feels pretty tired today. OBJECTIVE: PAIN: No c/o pain BED MOBILITY/TRANSFERS Sit-stand: Min A (from low surface) Stand-sit: SBA GAIT Assistive Device: Bariatric FWW Weight bearing: Full Assist: SBA Distance: 60' Deviation: SOB THEREX: Patient completed a LE strengthening program, as per flow sheet. Patient was able to tolerate a slight progression in his program today. ASSESSMENT: Patient tolerated session without complaints. He did require an extended rest following gait training due to significant SOB. He also required rests between exercises due to SOB and fatigue. PLAN: Continue with PT's POC TREATMENT CODE/TIME: 25 minutes; TA/TP Intake Vital Signs 3 l l l l 10/27/17 17:28 l l 10/27/17 17:35 l l 10/27/17 17:37 l l 10/27/17 17:40 l l 10/27/17 17:45 l l 10/27/17 17:50 l l 10/27/17 18:00 l l 10/27/17 18:01 l l 10/27/17 18:10 l l 10/27/17 18:15 l l 10/27/17 18:20 l l 10/27/17 18:22 l l 10/27/17 18:30 l l 10/27/17 18:31 l l 10/27/17 18:40 l l 10/27/17 18:45 l l 10/27/17 18:50 l l 10/27/17 19:00 l l 10/27/17 19:01 l l 10/27/17 19:10 l l 10/27/17 19:15 l l 10/27/17 19:20 l l 10/27/17 19:30 l l 10/27/17 19:40 l l 10/27/17 19:41 l l 10/27/17 19:45 l l 10/27/17 19:50 l l 10/27/17 19:50 l l 10/27/17 19:54 l l 10/27/17 20:00 l l 10/27/17 20:01 l l 10/27/17 20:10 l l 10/27/17 20:11 l l 10/27/17 20:15 l l 10/27/17 20:20 l l 10/27/17 21:14 l l 10/27/17 22:06 l l 10/28/17 01:29 l l 10/28/17 02:43 l l 10/28/17 02:47 l l 10/28/17 03:40 l l 10/28/17 04:01 l l 10/28/17 04:05 l l 10/28/17 04:15 l l 10/28/17 04:23 l l 10/28/17 04:31 l l 10/28/17 04:46 l l 10/28/17 05:04 l l 10/28/17 05:05 l l 10/28/17 05:18 l l 10/28/17 05:32 l l 10/28/17 05:33 l l 10/28/17 05:47 l l 10/28/17 06:02 l l 10/28/17 06:17 l l 10/28/17 06:20 l l 10/28/17 07:45 l l 10/28/17 08:45 l l 10/28/17 08:57 l l 10/28/17 09:01 l l 10/28/17 09:30 l l 10/28/17 09:56 l l 10/28/17 10:22 l l 10/28/17 10:40 l l 10/28/17 11:12 l l 10/28/17 12:10 l l 10/28/17 12:48 l l 10/28/17 12:50 l l 10/28/17 13:57 l l 10/28/17 14:01 l l 10/28/17 14:20 l l 10/28/17 14:30 l l 10/28/17 14:40 l l 10/28/17 14:50 l l 10/28/17 15:00 l l 10/28/17 15:01 l l 10/28/17 15:10 l l 10/28/17 15:20 l l 10/28/17 15:30 l l 10/28/17 15:40 l l 10/28/17 15:50 l l 10/28/17 16:00 l l 10/28/17 16:01 l l 10/28/17 16:15 l l 10/28/17 16:15 l l 10/28/17 16:20 l l 10/28/17 16:40 l l 10/28/17 16:50 l l 10/28/17 17:02 l l 10/28/17 18:01 l l 10/28/17 19:00 l l 10/28/17 20:00 l l 10/28/17 20:39 l l 10/28/17 21:00 l l 10/28/17 22:00 l l 10/28/17 23:07 l l 10/28/17 23:08 l l 10/28/17 23:34 l l 10/29/17 00:34 l l 10/29/17 01:00 l l 10/29/17 02:00 l l 10/29/17 03:07 l l 10/29/17 06:00 l l 10/29/17 07:00 l l 10/29/17 09:30 l l 10/29/17 09:30 l l 10/29/17 09:48 l l 10/29/17 11:10 l l 10/29/17 11:21 l l 10/29/17 14:29 l l 10/29/17 14:30 l l 10/29/17 14:51 l l 10/29/17 15:00 l l 10/29/17 15:54 l l 10/29/17 16:30 l l 10/29/17 16:33 l l 10/29/17 17:00 l l 10/29/17 17:06 l l 10/29/17 18:00 l l 10/29/17 19:34 l l 10/29/17 21:44 l l 10/29/17 22:00 l l 10/29/17 23:00 l l 10/29/17 23:16 l l 10/30/17 00:40 l l 10/30/17 00:40 l l 10/30/17 01:16 l l 10/30/17 01:34 l l 10/30/17 02:00 l l 10/30/17 02:25 l l 10/30/17 03:00 l l 10/30/17 03:00 l l 10/30/17 03:01 l l 10/30/17 04:00 l l 10/30/17 04:01 l l 10/30/17 05:01 l l 10/30/17 06:00 l l 10/30/17 06:00 l l 10/30/17 06:01 l l 10/30/17 07:01 l l 10/30/17 07:05 l l 10/30/17 08:23 l l 10/30/17 09:00 l l 10/30/17 09:15 l l 10/30/17 10:00 l l 10/30/17 11:00 l l 10/30/17 11:30 l l 10/30/17 12:00 l l 10/30/17 12:08 l l 10/30/17 12:15 l l 10/30/17 13:30 l l 10/30/17 14:26 l l 10/30/17 15:15 l l 10/30/17 15:17 l l 10/30/17 15:18 l l 10/30/17 16:00 l l 10/30/17 16:01 l l 10/30/17 17:00 l l 10/30/17 18:31 l l 10/30/17 21:35 l l 10/30/17 22:00 l l 10/30/17 22:01 l l 10/30/17 23:00 l l 10/30/17 23:02 l l 10/30/17 23:50 l l 10/31/17 00:00 l l 10/31/17 00:02 l l 10/31/17 00:24 l l 10/31/17 01:01 l l 10/31/17 02:01 l l 10/31/17 02:02 l l 10/31/17 02:50 l l 10/31/17 03:00 l l 10/31/17 03:01 l l 10/31/17 06:00 l l 10/31/17 06:00 l l 10/31/17 07:01 l l 10/31/17 07:15 l l 10/31/17 08:01 l l 10/31/17 08:20 l l 10/31/17 08:22 l l 10/31/17 11:32 l l 10/31/17 12:21 l l 10/31/17 13:46 l l 10/31/17 16:50 l l 10/31/17 17:24 l l 10/31/17 18:01 l l 10/31/17 19:01 l l 10/31/17 19:10 l l 10/31/17 19:10 l l 10/31/17 19:42 l l 10/31/17 20:00 l l 10/31/17 21:01 l l 10/31/17 21:39 l l 10/31/17 22:01 l l 10/31/17 23:01 l l 10/31/17 23:10 l l 10/31/17 23:41 l l 11/01/17 00:01 l l 11/01/17 01:01 l l 11/01/17 02:16 l l 11/01/17 03:01 l l 11/01/17 03:29 l l 11/01/17 04:01 l l 11/01/17 05:01 l l 11/01/17 05:18 l l 11/01/17 06:01 l l 11/01/17 06:35 l l 11/01/17 07:00 l l 11/01/17 08:00 l l 11/01/17 08:30 l l 11/01/17 09:00 l l 11/01/17 10:00 l l 11/01/17 12:30 l l 11/01/17 13:09 l l 11/01/17 13:12 l l 11/01/17 14:01 l l 11/01/17 15:01 l l 11/01/17 16:00 l l 11/01/17 16:00 l l 11/01/17 16:02 l l 11/01/17 16:13 l l 11/01/17 16:15 l l 11/01/17 16:19 l l 11/01/17 16:27 l l 11/01/17 16:32 l l 11/01/17 17:01 l l 11/01/17 18:00 l l 11/01/17 19:01 l l 11/01/17 19:30 l l 11/01/17 20:05 l l 11/01/17 21:01 l l 11/01/17 22:01 l l 11/01/17 23:00 l l 11/01/17 23:10 l l 11/01/17 23:25 l l 11/02/17 00:00 l l 11/02/17 01:00 l l 11/02/17 02:00 l l 11/02/17 03:00 l l 11/02/17 03:30 l l 11/02/17 04:00 l l 11/02/17 05:01 l l 11/02/17 05:25 l l 11/02/17 05:48 l l 11/02/17 06:01 l l 11/02/17 07:01 l l 11/02/17 08:01 l l 11/02/17 09:00 l l 11/02/17 09:28 l l 11/02/17 10:16 l l 11/02/17 11:00 l l 11/02/17 11:11 l l 11/02/17 11:32 l l 11/02/17 11:51 l l Height 6 ft 1 in 6 ft 1 in l l Weight 141.4 kg 141.4 kg 141.4 kg 141.4 kg 134.7 kg 135 kg 137 kg 137 kg 134.8 kg 135.1 kg l l BP 170/58 H 203/123 H 200/85 H 191/154 H 170/58 H 168/53 H 151/61 H 136/92 H 153/61 H 147/59 H 132/59 L 135/54 L 137/55 L 113/67 89/39 L 81/50 L 80/30 L 87/42 L 89/45 L 95/45 L 111/46 L 103/51 L 92 /48 L 102/52 L 100/44 L 99/45 L 97/58 L 94/48 L 113/ 59 L 119/64 125/51 L 106/58 L 115/63 135/75 139/70 149/75 H 151/74 H 110/52 L 136/57 L 188/66 H 169/94 H 169/94 H 156/76 H 127/80 143/85 H 163/91 H 168/89 H 168/89 H 166/86 H 184/94 H 165/94 H 190/88 H 171/95 H 171/95 H 176/88 H 189/97 H 187/95 H 187/95 H 182/90 H 182/90 H 195/ 111 H 187/99 H 187/89 H 187/95 H 191/94 H 171/77 H 208/108 H 193/93 H 200/90 H 200/90 H 184/86 H 193/87 H 183/92 H 197/95 H 196/96 H 135/54 L 189/85 H 182/ 91 H 166/81 H 180/85 H 186/81 H 183/81 H 183/81 H 157/77 H 151/73 H 133/82 172/86 H 164/81 H 190/87 H 193/83 H 191/84 H 132/104 H 175/95 H 188/89 H 188/80 H 195/84 H 161/66 H 182/67 H 195/73 H 196/87 H 192/106 H 189/82 H 193/83 H 214 /83 H 181/71 H 172/87 H 181/79 H 146/74 H 172/83 H 172/80 H 187/74 H 183/78 H 195/74 H 187/75 H 206/89 H 202/81 H 200/88 H 206/89 H 207/85 H 209/87 H 208/93 H 164/79 H 174/82 H 152/71 H 176/73 H 176/78 H 172/67 H 175/75 H 161/65 H 160/71 H 167 /68 H 166/63 H 177/74 H 171/63 H 168/67 H 176/69 H 146/63 H 153/65 H 157/73 H 168/78 H 149/71 H 156/76 H 156/82 H 166/73 H l l Position Supine Supine Supine Supine Supine Supine Sitting Sitting Left Lateral Supine Supine Supine Supine Supine Supine Supine Supine Sitting Supine Supine Supine Supine Supine l l Respiration 32 H 25 H 28 H 31 H 24 23 26 H 29 H 24 26 H 26 H 24 25 H 20 25 H 21 29 H 28 H 22 31 H 29 H 20 25 H 32 H 29 H 37 H 38 H 37 H 31 H 35 H 31 H 24 41 H 43 H 26 H 29 H 36 H 21 32 H 29 H 31 H 32 H 31 H 34 H 24 18 22 19 17 12 18 21 16 15 17 16 18 18 18 18 15 20 24 15 19 19 17 18 19 19 17 22 19 21 24 26 H 26 H 16 22 22 24 20 18 15 19 17 18 22 24 16 17 17 20 25 H 25 H 19 18 22 19 17 17 14 16 18 18 21 14 16 19 16 19 17 19 14 19 21 19 20 21 19 17 19 18 19 20 29 H 26 H 22 26 H 27 H 28 H 29 H 29 H 29 H 26 H 20 25 H 27 H 19 24 20 19 24 27 H 27 H 14 23 27 H 29 H 33 H 30 H 27 H 19 28 H 27 H 22 22 27 H 21 19 19 18 20 18 18 27 H 25 H 26 H 22 17 20 25 H 32 H 25 H 29 H 24 28 H 20 32 H 23 23 26 H 28 H 25 H 23 23 31 H 27 H 26 H 30 H 23 22 19 31 H 29 H 22 22 22 26 H 26 H 16 22 16 l l Pulse 110 H 108 H 104 H 111 H 105 H 106 H 105 H 102 H 101 H 98 H 98 H 96 H 94 H 94 H 90 89 84 86 84 87 87 86 86 86 85 85 85 85 77 74 73 68 66 60 61 63 64 66 67 70 82 75 75 74 83 76 70 66 65 68 74 70 73 68 70 67 72 69 70 67 64 65 63 65 65 64 72 89 78 68 71 67 69 66 64 72 68 68 76 82 78 79 79 78 56 L 61 64 64 78 72 79 81 79 84 83 86 81 79 81 87 79 89 87 84 82 80 79 73 71 77 78 70 57 L 60 66 74 73 68 78 79 66 75 75 76 79 78 81 86 66 79 63 64 68 71 79 79 71 71 69 72 79 71 72 75 75 57 L 60 63 63 75 69 77 75 l l Temp 38.6 C H 39.7 C H 39.5 C H 39.3 C H 39.5 C H 39.2 C H 38.6 C H 38.4 C H 39.4 C H 39.2 C H 38.1 C H 36.5 C 36.8 C 36.3 C L 36.3 C L 36.3 C L 36.2 C L 36.8 C 37.6 C H 37.9 C H 37.9 C H 35.6 C L 36.7 C 36.6 C 36.8 C 36.8 C 36.6 C 36.5 C 36.5 C 36.7 C 36.1 C L 36.5 C 37.1 C 36.5 C 36.6 C 37.4 C 37.8 C H 37.8 C H 37.0 C 37.6 C H 36.8 C 36.8 C 36.3 C L 37.2 C 37 C 37 C 37.1 C 37.1 C 36.9 C 36.7 C 37.4 C 36.6 C 37.1 C 37.1 C 37.1 C 37.0 C l l Temp Source Skin Tympanic Tympanic Tympanic Tympanic Temporal Artery Scan Temporal Artery Scan Temporal Artery Scan Tympanic Temporal Artery Scan Temporal Artery Scan Temporal Artery Scan Temporal Artery Scan Temporal Artery Scan Temporal Artery Scan Temporal Artery Scan Temporal Artery Scan Temporal Artery Scan Temporal Artery Scan Temporal Artery Scan Temporal Artery Scan Temporal Artery Scan Tympanic Temporal Artery Scan Temporal Artery Scan Temporal Artery Scan Tympanic Temporal Artery Scan Temporal Artery Scan Tympanic Temporal Artery Scan Temporal Artery Scan Temporal Artery Scan Temporal Artery Scan Temporal Artery Scan Temporal Artery Scan Temporal Artery Scan Temporal Artery Scan Temporal Artery Scan Temporal Artery Scan Temporal Artery Scan Temporal Artery Scan l l Pulse Oximetry (%) 96 94 L 94 L 97 96 96 98 98 97 97 95 96 96 97 96 97 96 96 97 96 95 98 96 95 96 96 95 95 97 97 98 93 L 90 L 95 100 99 97 96 96 100 97 98 95 98 97 95 98 95 97 96 96 93 L 93 L 93 L 93 L 95 95 95 95 95 l l Oxygen Flow Rate 2 0 0 2 2 0 0 0 0 0 0 0 0 0 0 0 0 0 0 0 0 0 0 0 0 0 0 0 0 0 0 0 0 0
--- NOTE | 2017-11-02 12:48 | W.PM.PROGNOT ---
Assessment and Plan (1) Sepsis: Current visit: Yes Status: Acute Appears resolved. Mr. Corley as evidence of enterococcus faecalis UTI that is sensitive to ampicillin, as well as blood cultures positive for group C strep as etiology. While chest x-ray shows possible pneumonia versus mild CHF, clinically the patient did not appear to have any pulmonary symptoms. Discussed case with infectious disease at [facility]. Vancomycin and Zosyn were discontinued after 2 days of treatment, and patient was initiated on renaly dosed Ampicillin for 2 days. However, while technically afebrile the patient had 2 elevations in temperature of 37.6 and 37.8 overnight on 10/30 and 10/31, slight worsening in his WBC that had been improving dramatically (Despite decrease in steroid dosing), as well as feeling and appearing overall worse. Given above Mr. Corley's antibiotic regimen was changed back to Vancomycin and Zosyn for additional pulmonary coverage (HCAP as patient is a chronic [facility] resident). No further elevation in temperature, and with good reduction in WBC this morning. Patient feels well. Continue current regimen. Today is day # 4 of broad spectrum coverage. Given overall improvement the patient is being transferred to med surg today. (2) JESUS (acute kidney injury): Current visit: Yes Status: Acute Evidence of acute kidney injury superimposed on CKD. This is in the setting of acute illness and sepsis, with a transient decrease in urinary output. Improvement in creatinine and normal potassium levels by by labs again this morning. Current creatinine is 2.29 from values of 2.17, 2.81 and 3 previously, with a baseline of approximately 1.5-2.5. Monitor renal function carefully, avoid nephrotoxins, and renaly dose medications when appropriate. As the patient is overall volume overloaded and has hyperkalemia he did receive low dose IV furosemide, on hold today. Kayexalate discontinued. Plan on reinitiation of oral lasix ARYA-I soon. (3) UTI (urinary tract infection) due to Enterococcus: Current visit: No Status: Chronic UTI with evidence of pansensitive enterococcus faecalis. Ampicillin discontinued as above - reinitiating Vancomycin. Day #7 total of antibiotics. (4) Diabetes mellitus type 2, controlled: Current visit: Yes Status: Chronic Continue basal insulin, but changed to resistance sliding scale as the patient's blood sugars were grossly elevated. This is in the setting of both infection as well as stress dose steroid use. Decreased steroids again yesterday. (5) Hypertension: Current visit: Yes Status: Chronic Initially hypotensive in the setting of sepsis, now hypertensive. IV fluids discontinued. Continue increased dose of amlodipine and metoprolol. Carefully initiated alpha lia yesterday, uptitrating today. We will continue to hold ARYA inhibitor in the setting of very recent acute kidney injury on CKD. Continue prn IV Hydralazine and initiated PO Hydralazine as well. Monitor and consider initiation of additional agent if needed, reinitiate ARYA-I when able. (6) Heme positive stool: Current visit: Yes Status: Acute Increased prior stool output through Iostomy in setting of Kayexalate use, tested Heme +. Patient is chronically on steroids - change low dose oral PPI to IV BID dosing. Monitor Hgb and stool output closely - currently low but stable. (7) Anxiety: Current visit: Yes Status: Chronic Currently on both SNRI as well as SSRI therapy (8) Chronic pain: Current visit: Yes Status: Chronic Continue current pain regimen. (9) CAD (coronary artery disease): Current visit: Yes Status: Chronic Noted. Appears quiescent. (10) Rheumatoid arthritis: Current visit: Yes Status: Chronic Maintained on Humira as an outpatient, as well as daily prednisone therapy. (11) Crohns disease: Current visit: Yes Status: Chronic Status post total colectomy, with ostomy in place that appears to be functioning well. (12) Chronic insomnia: Current visit: Yes Status: Chronic Initiated nightly mirtazapine. (13) Anemia: Current visit: Yes Status: Acute Hemoglobin low but stable, with further workup showing a low iron, low TIBC, and normal ferritin at 124, indicating a likely mixed etiology for the patient's anemia. B12 and folic acid were also checked and normal. Heme + stools as above (14) Hypothyroidism: Current visit: Yes Status: Chronic Continue replacement therapy. (15) DVT prophylaxis: Current visit: Yes Status: Acute Continue subcutaneous heparin. Subjective Interval history since last seen: 57-year-old resident at the [facility] admitted from [facility] on October 27 with a diagnosis of bacteremia. Mr. Corley is a chronic resident at a nursing facility due to his significant disability from rheumatoid arthritis. He was sent in for further evaluation from the [facility] to [facility] ED due to development of high fevers, with further workup showing evidence of a significant leukocytosis, elevated lactate, and eventual development of hypotension. Initially attributed to potential lower extremity cellulitis, the patient was found to have evidence of a UTI and possible findings of pneumonia by chest x-ray, as well as excoriations in his skin (lower extremities) as potential nidus for infection. Mr. Corley had been steadily improving and remained afebrile with improving and now resolved leukocytosis on broad spectrum antibiotics. His regimen was changed to IV Ampicillin, and over 24 hours later he developed temperatures of 37.8 and 37.6, and CBC showed a lack of improvement in his WBC despite a decrease in his steroid dosing. Initial JESUS but now with resolved hyperkalemia and with creatinine value that is at or near patient's baseline. The patient continued to be significantly hypertensive yesterday prompting ongoing change to his medication regimen, and now appears to have improved blood pressures. No overnight events reported. Patient has no complaints today. Exam Const General: cooperative, no acute distress, anxious and cushingoid Nutritional Appearance: obese Orientation: alert and oriented to person Resp Effort & Inspection: normal respiratory effort and able to speak in complete sentences Auscultation: clear to auscultation bilaterally ( ) Cardio Rate: regular rate Heart Sounds: S1 abnormal (Distant heart sounds, difficult to discern) GI Inspection: normal to inspection Palpation: soft and nontender Skin General skin exam: no rashes or lesions noted (Chronic b/l LE hyperpigmentation) and dry skin Lesions: lesion noted (Linear scratches on both thighs) Neuro General: alert and oriented x3 Extrem General: normal to inspection and edema (Improved LE edema, now 3 - 4+ on the right and 2 - 3+ on left. Chronic appearing hyperpigmentation R>L) Laterality: bilateral Objective Objective Clinical Data: Abnormal lab results 11/02/17 11/02/17 Range/Units 06:20 06:20 RBC 4.03 L (4.50-6.00) m/cumm Hgb 7.7 L (13.5-17.5) g/dL Hct 27.0 L (40.0-50.0) % MCV 67.0 L (80-95) fL MCH 19.1 L (27.0-33.0) pg MCHC 28.5 L (32.0-36.0) g/dL RDW 18.5 H (11.8-14.1) % Plt Count 423 H (130-400) x1000/uL Absolute Neutrophils 7.36 H (1.2-6.7) k/cumm Absolute Monocytes 0.77 H (0.11-0.7) k/cumm Sodium 147 H (136-145) mmol/L Chloride 112 H (98-107) mmol/L BUN 59 H (7-18) mg/dL Creatinine 2.29 H (0.70-1.30) mg/dL Glucose 111 H (70-100) mg/dL Calcium 7.8 L (8.5-10.1) mg/dL AST 13 L (15-37) U/L Alkaline Phosphatase 169 H (46-116) U/L Total Protein 6.2 L (6.4-8.2) g/dL Albumin 2.1 L (3.4-5.0) g/dL Vital Signs Temp 37.0 C 11/02/17 11:51 Pulse 75 11/02/17 11:32 Resp 16 11/02/17 11:32 BP 166/73 H 11/02/17 11:32 Pulse Ox 95 11/02/17 03:30 Intake & Output 11/01/17 11/02/17 11/02/17 23:59 11:59 23:59 Intake Total 2040 / 2040 1440 / 1440 Output Total 2960 / 2960 2100 / 2100 Balance -920 / -920 -660 / -660 Weight 135.1 kg Intake: IV 600 / 600 50 / 50 Oral 1440 / 1440 1390 / 1390 Output: Urine 2060 / 2060 1550 / 1550 Stool 900 / 900 550 / 550 Other: Urine Color Yellow Yellow Urine Appearance Clear Clear Comment Downing catheter in place and patent. Downing catheter in place and patent. Laboratory Results WBC 9.88 k/cumm (4.4-10.8) 11/02/17 06:20 RBC 4.03 m/cumm (4.50-6.00) L 11/02/17 06:20 Hgb 7.7 g/dL (13.5-17.5) L 11/02/17 06:20 Hct 27.0 % (40.0-50.0) L 11/02/17 06:20 MCV 67.0 fL (80-95) L 11/02/17 06:20 MCH 19.1 pg (27.0-33.0) L 11/02/17 06:20 MCHC 28.5 g/dL (32.0-36.0) L 11/02/17 06:20 RDW 18.5 % (11.8-14.1) H 11/02/17 06:20 Plt Count 423 x1000/uL (130-400) H 11/02/17 06:20 MPV 10.7 fL (8.0-11.0) 11/02/17 06:20 Immature Gran % 1.7 11/02/17 06:20 Neutrophils % 74.6 11/02/17 06:20 Lymphocytes % 12.2 11/02/17 06:20 Monocytes % 7.8 11/02/17 06:20 Eosinophils % 3.6 11/02/17 06:20 Basophils % 0.1 11/02/17 06:20 Absolute Neutrophils 7.36 k/cumm (1.2-6.7) H 11/02/17 06:20 Band Neutrophils 0.0 % 10/31/17 06:42 Absolute Lymphocytes 1.21 k/cumm (1.2-3.4) 11/02/17 06:20 Absolute Monocytes 0.77 k/cumm (0.11-0.7) H 11/02/17 06:20 Absolute Eosinophils 0.36 k/cumm (0.0-0.7) 11/02/17 06:20 Absolute Basophils 0.01 k/cumm (0.0-0.2) 11/02/17 06:20 Metamyelocytes 1.0 % 10/28/17 06:30 Differential Comment Rbc morph reviewed 11/02/17 06:20 Atypical Lymphocytes 0 10/31/17 06:42 RBC Morphology See below 11/02/17 06:20 Polychromasia Present 10/29/17 06:40 Hypochromasia 3+ 11/02/17 06:20 Poikilocytosis 2+ 11/02/17 06:20 Basophilic Stippling Present 11/01/17 06:15 Anisocytosis 3+ 11/02/17 06:20 Microcytosis 3+ 11/02/17 06:20 Ovalocytes 3+ 11/02/17 06:20 PT 10.9 sec (9.3-10.8) H 10/27/17 18:02 INR 1.1 (1.0-3.5) 10/27/17 18:02 Sodium 147 mmol/L (136-145) H 11/02/17 06:20 Potassium 4.0 mmol/L (3.5-5.1) 11/02/17 06:20 Chloride 112 mmol/L (98-107) H 11/02/17 06:20 Carbon Dioxide 25.6 mmol/L (21.0-32.0) 11/02/17 06:20 Anion Gap 9.4 mmol/L (3-11) 11/02/17 06:20 BUN 59 mg/dL (7-18) H 11/02/17 06:20 Creatinine 2.29 mg/dL (0.70-1.30) H 11/02/17 06:20 Estimated GFR/1.73 m2 29.50 (mL/min/1.73m2) 11/02/17 06:20 Glucose 111 mg/dL (70-100) H 11/02/17 06:20 Hemoglobin A1c 6.2 % (4.5-6.2) 10/28/17 06:30 Lactate 0.9 mmol/L (0.6-1.4) 10/28/17 09:48 Calcium 7.8 mg/dL (8.5-10.1) L 11/02/17 06:20 Iron 8 ug/dL (50-175) L 10/29/17 06:40 TIBC 245 ug/dL (250-450) L 10/29/17 06:40 Transferrin % Sat 3 % (20-55) L 10/29/17 06:40 Ferritin 124 ng/mL (8-388) 10/29/17 06:40 Total Bilirubin 0.4 mg/dL (0.2-1.0) 11/02/17 06:20 AST 13 U/L (15-37) L 11/02/17 06:20 ALT 17 U/L (12-78) 11/02/17 06:20 Alkaline Phosphatase 169 U/L (46-116) H 11/02/17 06:20 NT-Pro-B Natriuret Pep 4180 pg/mL (-299) H 10/28/17 06:30 Total Protein 6.2 g/dL (6.4-8.2) L 11/02/17 06:20 Albumin 2.1 g/dL (3.4-5.0) L 11/02/17 06:20 Vitamin B12 912 pg/mL (193-986) 10/29/17 06:40 Folate 14.1 ng/mL (8.6-20.0) 10/29/17 06:40 Urine Color Yellow (Yellow) 10/27/17 18:10 Urine Clarity Clear 10/27/17 18:10 Urine pH 5.5 (5-8) 10/27/17 18:10 Ur Specific [place] 1.020 (1.005-1.025) 10/27/17 18:10 Urine Protein >=300 mg/dL (Negative) H 10/27/17 18:10 Urine Ketones Negative mg/dL (Negative) 10/27/17 18:10 Urine Blood Small (Negative) H 10/27/17 18:10 Urine Nitrite Negative (Negative) 10/27/17 18:10 Urine Bilirubin Negative (Negative) 10/27/17 18:10 Urine Urobilinogen 0.2 EU/dL (Up TO 0.2) 10/27/17 18:10 Ur Leukocyte Esterase Trace (Negative) H 10/27/17 18:10 Urine RBC 10-20 (0-2) H 10/27/17 18:10 Urine WBC 20-50 HPF (0-5) 10/27/17 18:10 Ur Epithelial Cells Few HPF (Negative) 10/27/17 18:10 Urine Crystals Negative HPF (Negative) 10/27/17 18:10 Urine Bacteria Moderate HPF (Negative) 10/27/17 18:10 Urine Casts 0-2 coarse granular LPF (Negative) 10/27/17 18:10 Urine Mucus Negative (Negative) 10/27/17 18:10 Urine Other Few transitional (Negative) 10/27/17 18:10 Ur Culture Indicated? Yes 10/27/17 18:10 Urine Glucose Negative mg/dL (Negative) 10/27/17 18:10 Patient ABO/Rh AB Negative 10/31/17 00:23 Antibody Screen Negative 10/31/17 00:23
--- NOTE | 2017-11-02 13:50 | CMPROGNOTE_ITS ---
- If Service Date Differs Date of service: 11/02/17 Time of Service: 13:48 Care Management Progress Note S/O: Brendan is resting when CM enters the room. Brendan will be discharged to the [facility] after completing IV antibiotics for urosepsis and coverage for HAP. Anticipate he will transition tot he medical surgical unit today. Brendan remains acute he is receiving IV antibiotic and being monitored in the ICU at this time. A: Brendan is a 57 year old male admitted with UTI sepsis in the setting of chronic illness. Brendan is disabled and a resident of the [facility]. P: Brendan will be discharged back to the [facility] when medically ready per provider. He is receiving at least a 10 day course of IV antibiotics for sepsis. He will transition back to the [facility] via [facility] wheelchair van when ready.
--- NOTE | 2017-11-02 18:50 | NUR.NOTE ---
Pt transferred from ICU to [facility] to room 215. Pt is alert and oriented times three. Lungs clear anterior. Positive BS. Open areas to occyx area. with with 1 assist and walker.Nursing Note:
[2017-11-02] MEDS: Heparin 5,000 UNITS/ML VIAL 5000 UNITS SC (20:06)
[2017-11-02] MEDS: Mirtazapine 15 MG TAB PO (20:06)
[2017-11-02] MEDS: Sertraline 50 MG TAB PO (20:07)
[2017-11-02] MEDS: risperiDONE 1 MG TAB 3 MG PO (21:39)
[2017-11-03] MEDS: Heparin 5,000 UNITS/ML VIAL 5000 UNITS SC ×3 (04:13→21:20)
[2017-11-03] MEDS: Acetaminophen 325 MG TAB PO (04:16)
[2017-11-03 05:51] VITALS: BP 174/81; PULSE 74
[2017-11-03] MEDS: Metoprolol 25 MG TAB PO ×2 (05:51→17:03)
[2017-11-03 07:16] LABS: Abs Immature Grans 0.12 k/cumm (0.0-0.09); Absolute Basophil Count 0.02 k/cumm (0.0-0.2); Absolute Lymphocyte Count 1.24 k/cumm (1.2-3.4); Absolute Monocyte Count 0.68 k/cumm (0.11-0.7); Absolute Neutrophil Count 9.04 k/cumm (1.2-6.7); Basophils % 0.2; Eosinophils % 7.5; HCT 27.9 % (40.0-50.0); HGB 7.9 g/dL (13.5-17.5); Lymphocytes % 10.3; Mean Corp. HGB Concentration 28.3 g/dL (32.0-36.0); Mean Corpuscular Hemoglobin 19.2 pg (27.0-33.0); Mean Corpuscular Volume 67.9 fL (80-95); Monocytes % 5.7; Neutrophils % 75.3; RBC 4.11 m/cumm (4.50-6.00); RBC Distribution Width 18.6 % (11.8-14.1)
[2017-11-03 07:32] LABS: Platelet Count 383 x1000/uL (130-400)
[2017-11-03 07:33] LABS: ALT 17 U/L (12-78); AST 14 U/L (15-37); Albumin 2.2 g/dL (3.4-5.0); Alkaline Phosphatase 165 U/L (46-116); Anion Gap 8.5 mmol/L (3-11); BUN 50 mg/dL (7-18); Bilirubin, Total 0.3 mg/dL (0.2-1.0); CO2 23.5 mmol/L (21.0-32.0); CREATININE 2.16 mg/dL (0.70-1.30); Calcium 7.9 mg/dL (8.5-10.1); Chloride 113 mmol/L (98-107); Estimated GFR 31.56 (mL/min/1.73m2); Glucose 160 mg/dL (70-100); Potassium 4.3 mmol/L (3.5-5.1); Sodium 145 mmol/L (136-145); Total Protein 6.1 g/dL (6.4-8.2)
[2017-11-03 07:45] VITALS: O2SAT 95
[2017-11-03 07:54] VITALS: BP 155/78; PULSE 60; RESP 20; TEMP 36.9; O2SAT 97
[2017-11-03] MEDS: Pantoprazole 40 MG VIAL IVP ×2 (08:30→21:20)
[2017-11-03] MEDS: Insulin Aspart 300 UNITS/3 ML PEN SC ×3 (08:31→17:00)
[2017-11-03] MEDS: Nystatin POWDER 15 GM JAR TP ×3 (08:31→21:23)
[2017-11-03] MEDS: amLODIPine 5 MG TAB 10 MG PO (08:32)
[2017-11-03] MEDS: Furosemide 20 MG/2 ML VIAL IVP (08:32)
[2017-11-03] MEDS: Venlafaxine 37.5 MG CAPCR 75 MG PO (08:32)
[2017-11-03] MEDS: hydrALAZINE 25 MG TAB PO ×4 (08:32→21:20)
[2017-11-03] MEDS: Normal Saline Flush 10 ML SYR IVP ×8 (08:33→22:29)
[2017-11-03] MEDS: predniSONE 20 MG TAB PO (08:37)
--- NOTE | 2017-11-03 10:18 | PDOC.CMPRO ---
- If Service Date Differs Date of service: 11/03/17 Time of Service: 10:18 Care Management Progress Note S/O: Brendan transition to the medical surgical floor he remains acute status at this time. His medication continue to be titrated to control his blood pressure and he requires daily labs. Brendan continues to receive IV antibiotics for a total of 10 days he is at day 5 now. Plan will be for him to have another 5 days then transition back to the [facility]. Brendan will transition to [facility] when medically ready for continued antibiotic treatment until discharge. He is currently receiving PT once a day. A: Brendan is a 57 year old male admitted with UTI sepsis in the setting of chronic illness. Brendan is disabled and a resident of the [facility]. P: Brendan will be discharged back to the [facility] when medically ready per provider. He is receiving a 10 day course of IV antibiotics for sepsis. He will transition back to the [facility] via [facility] wheelchair van when ready.
--- NOTE | 2017-11-03 10:26 | CMPROGNOTE_ITS ---
- If Service Date Differs Date of service: 11/03/17 Time of Service: 10:18 Care Management Progress Note S/O: Brendan transition to the medical surgical floor he remains acute status at this time. His medication continue to be titrated to control his blood pressure and he requires daily labs. Brendan continues to receive IV antibiotics for a total of 10 days he is at day 5 now. Plan will be for him to have another 5 days then transition back to the [facility]. Brendan will transition to [facility] when medically ready for continued antibiotic treatment until discharge. He is currently receiving PT once a day. A: Brendan is a 57 year old male admitted with UTI sepsis in the setting of chronic illness. Brendan is disabled and a resident of the [facility]. P: Brendan will be discharged back to the [facility] when medically ready per provider. He is receiving a 10 day course of IV antibiotics for sepsis. He will transition back to the [facility] via [facility] wheelchair van when ready.
--- NOTE | 2017-11-03 11:10 | PT.INTREAT ---
PT Notes Inpatient Physical Therapy Treatment Note PRECAUTIONS: Fall SUBJECTIVE: On reports that he is not feeling well today, although it is willing to participate in PT. OBJECTIVE: PAIN: No complaints of pain BED MOBILITY/TRANSFERS Sit-stand: Min A (from low surface) Stand-sit: SBA GAIT Assistive Device: FWW Weight bearing: Full Assist: SBA Distance: 80' Deviation: SOB VITALS: SaO2: 97% on RA post gait training THEREX: Patient completed a lower extremity strengthening program, as per flow sheet. ASSESSMENT: Patient tolerated a progression in gait distance with FWW support and SBA with SOB with activity. Patient requires significant rest break to recover following gait training. PLAN: Continue with PT's POC TREATMENT CODE/TIME: 25 minutes; TA/TP Intake Vital Signs 10/27/17 17:28 10/27/17 17:35 10/27/17 17:37 10/27/17 17:40 10/27/17 17:45 10/27/17 17:50 10/27/17 18:00 10/27/17 18:01 10/27/17 18:10 10/27/17 18:15 10/27/17 18:20 10/27/17 18:22 10/27/17 18:30 10/27/17 18:31 10/27/17 18:40 10/27/17 18:45 10/27/17 18:50 10/27/17 19:00 10/27/17 19:01 10/27/17 19:10 10/27/17 19:15 10/27/17 19:20 10/27/17 19:30 10/27/17 19:40 10/27/17 19:41 10/27/17 19:45 10/27/17 19:50 10/27/17 19:50 10/27/17 19:54 10/27/17 20:00 10/27/17 20:01 Height 6 ft 1 in 6 ft 1 in Weight 141.4 kg 141.4 kg 141.4 kg BP 170/58 H 203/123 H 200/85 H 191/154 H 170/58 H 168/53 H 151/61 H 136/92 H 153/61 H 147/59 H 132/59 L 135/54 L Position Respiration 32 H 25 H 28 H 31 H 24 23 26 H 29 H 24 26 H 26 H 24 25 H 20 25 H 21 29 H 28 H 22 31 H 29 H 20 25 H 32 H 29 H 37 H 38 H 37 H Pulse 110 H 108 H 104 H 111 H 105 H 106 H 105 H 102 H 101 H 98 H 98 H 96 H Temp 38.6 C H 39.7 C H Temp Source Skin Pulse Oximetry (%) 96 94 L 94 L 97 96 96 98 98 97 97 95 96 96 97 96 97 96 96 97 96 95 98 96 95 96 96 95 95 Oxygen Flow Rate 2 10/27/17 20:10 10/27/17 20:11 10/27/17 20:15 10/27/17 20:20 10/27/17 21:14 10/27/17 22:06 10/28/17 01:29 10/28/17 02:43 10/28/17 02:47 10/28/17 03:40 10/28/17 04:01 10/28/17 04:05 10/28/17 04:15 10/28/17 04:23 10/28/17 04:31 10/28/17 04:46 10/28/17 05:04 10/28/17 05:05 10/28/17 05:18 10/28/17 05:32 10/28/17 05:33 10/28/17 05:47 10/28/17 06:02 10/28/17 06:17 10/28/17 06:20 10/28/17 07:45 10/28/17 08:45 10/28/17 08:57 10/28/17 09:01 10/28/17 09:30 10/28/17 09:56 10/28/17 10:22 141.4 kg 134.7 kg 137/55 L 113/67 89/39 L 81/50 L 80/30 L 87/42 L 89/45 L 95/45 L 111/46 L 103/51 L 92/48 L 102/52 L 100/44 L 99/45 L 97/58 L 94/48 L 113/59 L 119/64 125/51 L 31 H 35 H 31 H 24 41 H 43 H 26 H 29 H 36 H 21 32 H 29 H 31 H 32 H 31 H 34 H 24 18 22 19 17 94 H 94 H 90 89 84 86 84 87 87 86 86 86 85 85 85 85 77 74 73 68 39.5 C H 39.3 C H 39.5 C H 39.2 C H 38.6 C H 38.4 C H 39.4 C H 39.2 C H 38.1 C H 36.5 C 36.8 C 36.3 C L Tympanic Tympanic Tympanic Tympanic Temporal Artery Scan Temporal Artery Scan Temporal Artery Scan Tympanic 97 97 98 93 L 90 L 95 0 0 2 2 10/28/17 10:40 10/28/17 11:12 10/28/17 12:10 10/28/17 12:48 10/28/17 12:50 10/28/17 13:57 10/28/17 14:01 10/28/17 14:20 10/28/17 14:30 10/28/17 14:40 10/28/17 14:50 10/28/17 15:00 10/28/17 15:01 10/28/17 15:10 10/28/17 15:20 10/28/17 15:30 10/28/17 15:40 10/28/17 15:50 10/28/17 16:00 10/28/17 16:01 10/28/17 16:15 10/28/17 16:15 10/28/17 16:20 10/28/17 16:40 10/28/17 16:50 10/28/17 17:02 10/28/17 18:01 10/28/17 19:00 10/28/17 20:00 10/28/17 20:39 10/28/17 21:00 10/28/17 22:00 106/58 L 115/63 135/75 139/70 149/75 H 151/74 H 110/52 L 136/57 L 188/66 H 12 18 21 16 15 17 16 18 18 18 18 15 20 24 15 19 19 17 18 19 19 17 22 19 21 24 26 H 66 60 61 63 64 66 67 70 82 36.3 C L 36.3 C L 36.2 C L 36.8 C 37.6 C H Temporal Artery Scan Temporal Artery Scan Temporal Artery Scan 100 99 0 0 10/28/17 23:07 10/28/17 23:08 10/28/17 23:34 10/29/17 00:34 10/29/17 01:00 10/29/17 02:00 10/29/17 03:07 10/29/17 06:00 10/29/17 07:00 10/29/17 09:30 10/29/17 09:30 10/29/17 09:48 10/29/17 11:10 10/29/17 11:21 10/29/17 14:29 10/29/17 14:30 10/29/17 14:51 10/29/17 15:00 10/29/17 15:54 10/29/17 16:30 10/29/17 16:33 10/29/17 17:00 10/29/17 17:06 10/29/17 18:00 10/29/17 19:34 10/29/17 21:44 10/29/17 22:00 10/29/17 23:00 10/29/17 23:16 10/30/17 00:40 10/30/17 00:40 10/30/17 01:16 135 kg 169/94 H 169/94 H 156/76 H 127/80 143/85 H 163/91 H 168/89 H 168/89 H 166/86 H 184/94 H 165/94 H 190/88 H 171/95 H 171/95 H 176/88 H Supine Supine Supine 26 H 16 22 22 24 20 18 15 19 17 18 22 24 16 17 17 20 25 H 25 H 19 18 75 75 74 83 76 70 66 65 68 74 70 73 68 70 67 37.9 C H 37.9 C H 35.6 C L 36.7 C 36.6 C 36.8 C 36.8 C 36.6 C 36.5 C 36.5 C 36.7 C Temporal Artery Scan Temporal Artery Scan Temporal Artery Scan Temporal Artery Scan Temporal Artery Scan Temporal Artery Scan Temporal Artery Scan Temporal Artery Scan 97 96 96 100 97 98 0 0 0 0 0 0 10/30/17 01:34 10/30/17 02:00 10/30/17 02:25 10/30/17 03:00 10/30/17 03:00 10/30/17 03:01 10/30/17 04:00 10/30/17 04:01 10/30/17 05:01 10/30/17 06:00 10/30/17 06:00 10/30/17 06:01 10/30/17 07:01 10/30/17 07:05 10/30/17 08:23 10/30/17 09:00 10/30/17 09:15 10/30/17 10:00 10/30/17 11:00 10/30/17 11:30 10/30/17 12:00 10/30/17 12:08 10/30/17 12:15 10/30/17 13:30 10/30/17 14:26 10/30/17 15:15 10/30/17 15:17 10/30/17 15:18 10/30/17 16:00 10/30/17 16:01 10/30/17 17:00 10/30/17 18:31 137 kg 189/97 H 187/95 H 187/95 H 182/90 H 182/90 H 195/111 H 187/99 H 187/89 H 187/95 H 191/94 H 171/77 H 208/108 H 193/93 H 200/90 H 200/90 H 184/86 H 193/87 H Supine Supine Supine Sitting 22 19 17 17 14 16 18 18 21 14 16 19 16 19 17 19 14 19 21 19 20 21 19 17 19 18 19 72 69 70 67 64 65 63 65 65 64 72 89 78 68 71 67 69 36.1 C L 36.5 C 37.1 C 36.5 C 36.6 C Temporal Artery Scan Temporal Artery Scan Tympanic Temporal Artery Scan Temporal Artery Scan 95 98 97 95 98 0 0 0 0 0 10/30/17 21:35 10/30/17 22:00 10/30/17 22:01 10/30/17 23:00 10/30/17 23:02 10/30/17 23:50 10/31/17 00:00 10/31/17 00:02 10/31/17 00:24 10/31/17 01:01 10/31/17 02:01 10/31/17 02:02 10/31/17 02:50 10/31/17 03:00 10/31/17 03:01 10/31/17 06:00 10/31/17 06:00 10/31/17 07:01 10/31/17 07:15 10/31/17 08:01 10/31/17 08:20 10/31/17 08:22 10/31/17 11:32 10/31/17 12:21 10/31/17 13:46 10/31/17 16:50 10/31/17 17:24 10/31/17 18:01 10/31/17 19:01 10/31/17 19:10 10/31/17 19:10 10/31/17 19:42 137 kg 183/92 H 197/95 H 196/96 H 135/54 L 189/85 H 182/91 H 166/81 H 180/85 H 186/81 H 183/81 H 183/81 H 157/77 H 151/73 H 133/82 172/86 H 164/81 H 190/87 H 193/83 H 191/84 H 132/104 H Sitting Left Lateral Supine Supine Supine Supine Supine 20 29 H 26 H 22 26 H 27 H 28 H 29 H 29 H 29 H 26 H 20 25 H 27 H 19 24 20 19 24 27 H 27 H 14 66 64 72 68 68 76 82 78 79 79 78 56 L 61 64 64 78 72 79 81 79 84 83 37.4 C 37.8 C H 37.8 C H 37.0 C 37.6 C H 36.8 C 36.8 C 36.3 C L 37.2 C 37 C 37 C Temporal Artery Scan Tympanic Temporal Artery Scan Temporal Artery Scan Tympanic Temporal Artery Scan Temporal Artery Scan Temporal Artery Scan 95 97 96 96 93 L 93 L 0 0 0 0 0 0 0 10/31/17 20:00 10/31/17 21:01 10/31/17 21:39 10/31/17 22:01 10/31/17 23:01 10/31/17 23:10 10/31/17 23:41 11/01/17 00:01 11/01/17 01:01 11/01/17 02:16 11/01/17 03:01 11/01/17 03:29 11/01/17 04:01 11/01/17 05:01 11/01/17 05:18 11/01/17 06:01 11/01/17 06:35 11/01/17 07:00 11/01/17 08:00 11/01/17 08:30 11/01/17 09:00 11/01/17 10:00 11/01/17 12:30 11/01/17 13:09 11/01/17 13:12 11/01/17 14:01 11/01/17 15:01 11/01/17 16:00 11/01/17 16:00 11/01/17 16:02 11/01/17 16:13 11/01/17 16:15 134.8 kg 175/95 H 188/89 H 188/80 H 195/84 H 161/66 H 182/67 H 195/73 H 196/87 H 192/106 H 189/82 H 193/83 H 214/83 H 181/71 H 172/87 H 181/79 H 146/74 H 172/83 H 172/80 H 187/74 H 183/78 H 195/74 H 187/75 H 206/89 H 202/81 H 200/88 H 206/89 H Supine Supine Supine Sitting Supine 23 27 H 29 H 33 H 30 H 27 H 19 28 H 27 H 22 22 27 H 21 19 19 18 20 18 18 27 H 25 H 26 H 22 17 20 25 H 32 H 25 H 86 81 79 81 87 79 89 87 84 82 80 79 73 71 77 78 70 57 L 60 66 74 73 68 78 79 66 75 75 37.1 C 37.1 C 36.9 C 36.7 C 37.4 C Temporal Artery Scan Temporal Artery Scan Temporal Artery Scan Temporal Artery Scan 93 L 93 L 95 0 0 0 0 0 11/01/17 16:19 11/01/17 16:27 11/01/17 16:32 11/01/17 17:01 11/01/17 18:00 11/01/17 19:01 11/01/17 19:30 11/01/17 20:05 11/01/17 21:01 11/01/17 22:01 11/01/17 23:00 11/01/17 23:10 11/01/17 23:25 11/02/17 00:00 11/02/17 01:00 11/02/17 02:00 11/02/17 03:00 11/02/17 03:30 11/02/17 04:00 11/02/17 05:01 11/02/17 05:25 11/02/17 05:48 11/02/17 06:01 11/02/17 07:01 11/02/17 08:01 11/02/17 09:00 11/02/17 09:00 11/02/17 09:28 11/02/17 10:16 11/02/17 11:00 11/02/17 11:11 11/02/17 11:32 135.1 kg 207/85 H 209/87 H 208/93 H 164/79 H 174/82 H 152/71 H 176/73 H 176/78 H 172/67 H 175/75 H 161/65 H 160/71 H 167/68 H 166/63 H 177/74 H 171/63 H 168/67 H 176/69 H 146/63 H 153/65 H 157/73 H 168/78 H 149/71 H 156/76 H 156/82 H 166/73 H Supine Supine Supine Supine Supine 29 H 24 28 H 20 32 H 23 23 26 H 28 H 25 H 23 23 31 H 27 H 26 H 30 H 23 22 19 31 H 29 H 22 22 22 26 H 26 H 16 22 16 76 79 78 81 86 66 79 63 64 68 71 79 79 71 71 69 72 79 71 72 75 75 57 L 60 63 63 75 69 77 75 36.6 C 37.1 C 37.1 C 37.1 C 37.0 C Temporal Artery Scan Temporal Artery Scan Temporal Artery Scan Temporal Artery Scan Temporal Artery Scan 95 95 95 95 0 0 0 0 0 11/02/17 11:51 11/02/17 12:00 11/02/17 13:00 11/02/17 14:00 11/02/17 15:16 11/02/17 16:49 11/02/17 17:00 11/02/17 21:19 11/02/17 23:52 11/03/17 05:51 11/03/17 06:05 11/03/17 07:54 133.2 kg 167/70 H 171/71 H 169/75 H 165/83 H 158/71 H 175/71 H 179/84 H 175/70 H 174/81 H 155/78 H Sitting 22 30 H 30 H 20 24 20 73 71 72 77 80 79 63 74 74 60 37.0 C 36.7 C 37.3 C 36.9 C Temporal Artery Scan Tympanic Tympanic Skin 96 95 97 0 0 0 0
--- NOTE | 2017-11-03 11:19 | PTTR_ITS ---
PT Notes Inpatient Physical Therapy Treatment Note PRECAUTIONS: Fall SUBJECTIVE: On reports that he is not feeling well today, although it is willing to participate in PT. OBJECTIVE: PAIN: No complaints of pain BED MOBILITY/TRANSFERS Sit-stand: Min A (from low surface) Stand-sit: SBA GAIT Assistive Device: FWW Weight bearing: Full Assist: SBA Distance: 80' Deviation: SOB VITALS: SaO2: 97% on RA post gait training THEREX: Patient completed a lower extremity strengthening program, as per flow sheet. ASSESSMENT: Patient tolerated a progression in gait distance with FWW support and SBA with SOB with activity. Patient requires significant rest break to recover following gait training. PLAN: Continue with PT's POC TREATMENT CODE/TIME: 25 minutes; TA/TP Intake Vital Signs 3 l l l l 10/27/17 17:28 l l 10/27/17 17:35 l l 10/27/17 17:37 l l 10/27/17 17:40 l l 10/27/17 17:45 l l 10/27/17 17:50 l l 10/27/17 18:00 l l 10/27/17 18:01 l l 10/27/17 18:10 l l 10/27/17 18:15 l l 10/27/17 18:20 l l 10/27/17 18:22 l l 10/27/17 18:30 l l 10/27/17 18:31 l l 10/27/17 18:40 l l 10/27/17 18:45 l l 10/27/17 18:50 l l 10/27/17 19:00 l l 10/27/17 19:01 l l 10/27/17 19:10 l l 10/27/17 19:15 l l 10/27/17 19:20 l l 10/27/17 19:30 l l 10/27/17 19:40 l l 10/27/17 19:41 l l 10/27/17 19:45 l l 10/27/17 19:50 l l 10/27/17 19:50 l l 10/27/17 19:54 l l 10/27/17 20:00 l l 10/27/17 20:01 l l 10/27/17 20:10 l l 10/27/17 20:11 l l 10/27/17 20:15 l l 10/27/17 20:20 l l 10/27/17 21:14 l l 10/27/17 22:06 l l 10/28/17 01:29 l l 10/28/17 02:43 l l 10/28/17 02:47 l l 10/28/17 03:40 l l 10/28/17 04:01 l l 10/28/17 04:05 l l 10/28/17 04:15 l l 10/28/17 04:23 l l 10/28/17 04:31 l l 10/28/17 04:46 l l 10/28/17 05:04 l l 10/28/17 05:05 l l 10/28/17 05:18 l l 10/28/17 05:32 l l 10/28/17 05:33 l l 10/28/17 05:47 l l 10/28/17 06:02 l l 10/28/17 06:17 l l 10/28/17 06:20 l l 10/28/17 07:45 l l 10/28/17 08:45 l l 10/28/17 08:57 l l 10/28/17 09:01 l l 10/28/17 09:30 l l 10/28/17 09:56 l l 10/28/17 10:22 l l 10/28/17 10:40 l l 10/28/17 11:12 l l 10/28/17 12:10 l l 10/28/17 12:48 l l 10/28/17 12:50 l l 10/28/17 13:57 l l 10/28/17 14:01 l l 10/28/17 14:20 l l 10/28/17 14:30 l l 10/28/17 14:40 l l 10/28/17 14:50 l l 10/28/17 15:00 l l 10/28/17 15:01 l l 10/28/17 15:10 l l 10/28/17 15:20 l l 10/28/17 15:30 l l 10/28/17 15:40 l l 10/28/17 15:50 l l 10/28/17 16:00 l l 10/28/17 16:01 l l 10/28/17 16:15 l l 10/28/17 16:15 l l 10/28/17 16:20 l l 10/28/17 16:40 l l 10/28/17 16:50 l l 10/28/17 17:02 l l 10/28/17 18:01 l l 10/28/17 19:00 l l 10/28/17 20:00 l l 10/28/17 20:39 l l 10/28/17 21:00 l l 10/28/17 22:00 l l 10/28/17 23:07 l l 10/28/17 23:08 l l 10/28/17 23:34 l l 10/29/17 00:34 l l 10/29/17 01:00 l l 10/29/17 02:00 l l 10/29/17 03:07 l l 10/29/17 06:00 l l 10/29/17 07:00 l l 10/29/17 09:30 l l 10/29/17 09:30 l l 10/29/17 09:48 l l 10/29/17 11:10 l l 10/29/17 11:21 l l 10/29/17 14:29 l l 10/29/17 14:30 l l 10/29/17 14:51 l l 10/29/17 15:00 l l 10/29/17 15:54 l l 10/29/17 16:30 l l 10/29/17 16:33 l l 10/29/17 17:00 l l 10/29/17 17:06 l l 10/29/17 18:00 l l 10/29/17 19:34 l l 10/29/17 21:44 l l 10/29/17 22:00 l l 10/29/17 23:00 l l 10/29/17 23:16 l l 10/30/17 00:40 l l 10/30/17 00:40 l l 10/30/17 01:16 l l 10/30/17 01:34 l l 10/30/17 02:00 l l 10/30/17 02:25 l l 10/30/17 03:00 l l 10/30/17 03:00 l l 10/30/17 03:01 l l 10/30/17 04:00 l l 10/30/17 04:01 l l 10/30/17 05:01 l l 10/30/17 06:00 l l 10/30/17 06:00 l l 10/30/17 06:01 l l 10/30/17 07:01 l l 10/30/17 07:05 l l 10/30/17 08:23 l l 10/30/17 09:00 l l 10/30/17 09:15 l l 10/30/17 10:00 l l 10/30/17 11:00 l l 10/30/17 11:30 l l 10/30/17 12:00 l l 10/30/17 12:08 l l 10/30/17 12:15 l l 10/30/17 13:30 l l 10/30/17 14:26 l l 10/30/17 15:15 l l 10/30/17 15:17 l l 10/30/17 15:18 l l 10/30/17 16:00 l l 10/30/17 16:01 l l 10/30/17 17:00 l l 10/30/17 18:31 l l 10/30/17 21:35 l l 10/30/17 22:00 l l 10/30/17 22:01 l l 10/30/17 23:00 l l 10/30/17 23:02 l l 10/30/17 23:50 l l 10/31/17 00:00 l l 10/31/17 00:02 l l 10/31/17 00:24 l l 10/31/17 01:01 l l 10/31/17 02:01 l l 10/31/17 02:02 l l 10/31/17 02:50 l l 10/31/17 03:00 l l 10/31/17 03:01 l l 10/31/17 06:00 l l 10/31/17 06:00 l l 10/31/17 07:01 l l 10/31/17 07:15 l l 10/31/17 08:01 l l 10/31/17 08:20 l l 10/31/17 08:22 l l 10/31/17 11:32 l l 10/31/17 12:21 l l 10/31/17 13:46 l l 10/31/17 16:50 l l 10/31/17 17:24 l l 10/31/17 18:01 l l 10/31/17 19:01 l l 10/31/17 19:10 l l 10/31/17 19:10 l l 10/31/17 19:42 l l 10/31/17 20:00 l l 10/31/17 21:01 l l 10/31/17 21:39 l l 10/31/17 22:01 l l 10/31/17 23:01 l l 10/31/17 23:10 l l 10/31/17 23:41 l l 11/01/17 00:01 l l 11/01/17 01:01 l l 11/01/17 02:16 l l 11/01/17 03:01 l l 11/01/17 03:29 l l 11/01/17 04:01 l l 11/01/17 05:01 l l 11/01/17 05:18 l l 11/01/17 06:01 l l 11/01/17 06:35 l l 11/01/17 07:00 l l 11/01/17 08:00 l l 11/01/17 08:30 l l 11/01/17 09:00 l l 11/01/17 10:00 l l 11/01/17 12:30 l l 11/01/17 13:09 l l 11/01/17 13:12 l l 11/01/17 14:01 l l 11/01/17 15:01 l l 11/01/17 16:00 l l 11/01/17 16:00 l l 11/01/17 16:02 l l 11/01/17 16:13 l l 11/01/17 16:15 l l 11/01/17 16:19 l l 11/01/17 16:27 l l 11/01/17 16:32 l l 11/01/17 17:01 l l 11/01/17 18:00 l l 11/01/17 19:01 l l 11/01/17 19:30 l l 11/01/17 20:05 l l 11/01/17 21:01 l l 11/01/17 22:01 l l 11/01/17 23:00 l l 11/01/17 23:10 l l 11/01/17 23:25 l l 11/02/17 00:00 l l 11/02/17 01:00 l l 11/02/17 02:00 l l 11/02/17 03:00 l l 11/02/17 03:30 l l 11/02/17 04:00 l l 11/02/17 05:01 l l 11/02/17 05:25 l l 11/02/17 05:48 l l 11/02/17 06:01 l l 11/02/17 07:01 l l 11/02/17 08:01 l l 11/02/17 09:00 l l 11/02/17 09:00 l l 11/02/17 09:28 l l 11/02/17 10:16 l l 11/02/17 11:00 l l 11/02/17 11:11 l l 11/02/17 11:32 l l 11/02/17 11:51 l l 11/02/17 12:00 l l 11/02/17 13:00 l l 11/02/17 14:00 l l 11/02/17 15:16 l l 11/02/17 16:49 l l 11/02/17 17:00 l l 11/02/17 21:19 l l 11/02/17 23:52 l l 11/03/17 05:51 l l 11/03/17 06:05 l l 11/03/17 07:54 l l Height 6 ft 1 in 6 ft 1 in l l Weight 141.4 kg 141.4 kg 141.4 kg 141.4 kg 134.7 kg 135 kg 137 kg 137 kg 134.8 kg 135.1 kg 133.2 kg l l BP 170/58 H 203/123 H 200/85 H 191/154 H 170/58 H 168/53 H 151/61 H 136/92 H 153/61 H 147/59 H 132/59 L 135/54 L 137/55 L 113/67 89/39 L 81/50 L 80/30 L 87/42 L 89/45 L 95/45 L 111/46 L 103/51 L 92 /48 L 102/52 L 100/44 L 99/45 L 97/58 L 94/48 L 113/ 59 L 119/64 125/51 L 106/58 L 115/63 135/75 139/70 149/75 H 151/74 H 110/52 L 136/57 L 188/66 H 169/94 H 169/94 H 156/76 H 127/80 143/85 H 163/91 H 168/89 H 168/89 H 166/86 H 184/94 H 165/94 H 190/88 H 171/95 H 171/95 H 176/88 H 189/97 H 187/95 H 187/95 H 182/90 H 182/90 H 195/ 111 H 187/99 H 187/89 H 187/95 H 191/94 H 171/77 H 208/108 H 193/93 H 200/90 H 200/90 H 184/86 H 193/87 H 183/92 H 197/95 H 196/96 H 135/54 L 189/85 H 182/ 91 H 166/81 H 180/85 H 186/81 H 183/81 H 183/81 H 157/77 H 151/73 H 133/82 172/86 H 164/81 H 190/87 H 193/83 H 191/84 H 132/104 H 175/95 H 188/89 H 188/80 H 195/84 H 161/66 H 182/67 H 195/73 H 196/87 H 192/106 H 189/82 H 193/83 H 214 /83 H 181/71 H 172/87 H 181/79 H 146/74 H 172/83 H 172/80 H 187/74 H 183/78 H 195/74 H 187/75 H 206/89 H 202/81 H 200/88 H 206/89 H 207/85 H 209/87 H 208/93 H 164/79 H 174/82 H 152/71 H 176/73 H 176/78 H 172/67 H 175/75 H 161/65 H 160/71 H 167 /68 H 166/63 H 177/74 H 171/63 H 168/67 H 176/69 H 146/63 H 153/65 H 157/73 H 168/78 H 149/71 H 156/76 H 156/82 H 166/73 H 167/70 H 171/71 H 169/75 H 165/83 H 158/71 H 175/71 H 179/84 H 175/70 H 174/81 H 155/78 H l l Position Supine Supine Supine Supine Supine Supine Sitting Sitting Left Lateral Supine Supine Supine Supine Supine Supine Supine Supine Sitting Supine Supine Supine Supine Supine Supine Sitting l l Respiration 32 H 25 H 28 H 31 H 24 23 26 H 29 H 24 26 H 26 H 24 25 H 20 25 H 21 29 H 28 H 22 31 H 29 H 20 25 H 32 H 29 H 37 H 38 H 37 H 31 H 35 H 31 H 24 41 H 43 H 26 H 29 H 36 H 21 32 H 29 H 31 H 32 H 31 H 34 H 24 18 22 19 17 12 18 21 16 15 17 16 18 18 18 18 15 20 24 15 19 19 17 18 19 19 17 22 19 21 24 26 H 26 H 16 22 22 24 20 18 15 19 17 18 22 24 16 17 17 20 25 H 25 H 19 18 22 19 17 17 14 16 18 18 21 14 16 19 16 19 17 19 14 19 21 19 20 21 19 17 19 18 19 20 29 H 26 H 22 26 H 27 H 28 H 29 H 29 H 29 H 26 H 20 25 H 27 H 19 24 20 19 24 27 H 27 H 14 23 27 H 29 H 33 H 30 H 27 H 19 28 H 27 H 22 22 27 H 21 19 19 18 20 18 18 27 H 25 H 26 H 22 17 20 25 H 32 H 25 H 29 H 24 28 H 20 32 H 23 23 26 H 28 H 25 H 23 23 31 H 27 H 26 H 30 H 23 22 19 31 H 29 H 22 22 22 26 H 26 H 16 22 16 22 30 H 30 H 20 24 20 l l Pulse 110 H 108 H 104 H 111 H 105 H 106 H 105 H 102 H 101 H 98 H 98 H 96 H 94 H 94 H 90 89 84 86 84 87 87 86 86 86 85 85 85 85 77 74 73 68 66 60 61 63 64 66 67 70 82 75 75 74 83 76 70 66 65 68 74 70 73 68 70 67 72 69 70 67 64 65 63 65 65 64 72 89 78 68 71 67 69 66 64 72 68 68 76 82 78 79 79 78 56 L 61 64 64 78 72 79 81 79 84 83 86 81 79 81 87 79 89 87 84 82 80 79 73 71 77 78 70 57 L 60 66 74 73 68 78 79 66 75 75 76 79 78 81 86 66 79 63 64 68 71 79 79 71 71 69 72 79 71 72 75 75 57 L 60 63 63 75 69 77 75 73 71 72 77 80 79 63 74 74 60 l l Temp 38.6 C H 39.7 C H 39.5 C H 39.3 C H 39.5 C H 39.2 C H 38.6 C H 38.4 C H 39.4 C H 39.2 C H 38.1 C H 36.5 C 36.8 C 36.3 C L 36.3 C L 36.3 C L 36.2 C L 36.8 C 37.6 C H 37.9 C H 37.9 C H 35.6 C L 36.7 C 36.6 C 36.8 C 36.8 C 36.6 C 36.5 C 36.5 C 36.7 C 36.1 C L 36.5 C 37.1 C 36.5 C 36.6 C 37.4 C 37.8 C H 37.8 C H 37.0 C 37.6 C H 36.8 C 36.8 C 36.3 C L 37.2 C 37 C 37 C 37.1 C 37.1 C 36.9 C 36.7 C 37.4 C 36.6 C 37.1 C 37.1 C 37.1 C 37.0 C 37.0 C 36.7 C 37.3 C 36.9 C l l Temp Source Skin Tympanic Tympanic Tympanic Tympanic Temporal Artery Scan Temporal Artery Scan Temporal Artery Scan Tympanic Temporal Artery Scan Temporal Artery Scan Temporal Artery Scan Temporal Artery Scan Temporal Artery Scan Temporal Artery Scan Temporal Artery Scan Temporal Artery Scan Temporal Artery Scan Temporal Artery Scan Temporal Artery Scan Temporal Artery Scan Temporal Artery Scan Tympanic Temporal Artery Scan Temporal Artery Scan Temporal Artery Scan Tympanic Temporal Artery Scan Temporal Artery Scan Tympanic Temporal Artery Scan Temporal Artery Scan Temporal Artery Scan Temporal Artery Scan Temporal Artery Scan Temporal Artery Scan Temporal Artery Scan Temporal Artery Scan Temporal Artery Scan Temporal Artery Scan Temporal Artery Scan Temporal Artery Scan Temporal Artery Scan Tympanic Tympanic Skin l l Pulse Oximetry (%) 96 94 L 94 L 97 96 96 98 98 97 97 95 96 96 97 96 97 96 96 97 96 95 98 96 95 96 96 95 95 97 97 98 93 L 90 L 95 100 99 97 96 96 100 97 98 95 98 97 95 98 95 97 96 96 93 L 93 L 93 L 93 L 95 95 95 95 95 96 95 97 l l Oxygen Flow Rate 2 0 0 2 2 0 0 0 0 0 0 0 0 0 0 0 0 0 0 0 0 0 0 0 0 0 0 0 0 0 0 0 0 0 0 0 0 0 0
[2017-11-03 11:43] LABS: Vancomycin, Trough 18.4 ug/mL (10.0-20.0)
[2017-11-03] MEDS: VANCOMYCIN 1,500 MG in Normal Saline 500 ML 333.33 MG IV (12:07)
[2017-11-03] MEDS: Ondansetron 4 MG/2 ML VIAL IVP (13:20)
--- NOTE | 2017-11-03 15:35 | W.PM.PROGNOT ---
Assessment and Plan (1) Sepsis: Current visit: Yes Status: Acute Appears resolved. Mr. Corley as evidence of enterococcus faecalis UTI that is sensitive to ampicillin, as well as blood cultures positive for group C strep as etiology. While chest x-ray shows possible pneumonia versus mild CHF, clinically the patient did not appear to have any pulmonary symptoms. Discussed case with infectious disease at [facility]. Vancomycin and Zosyn were discontinued after 2 days of treatment, and patient was initiated on renaly dosed Ampicillin for 2 days. However, while technically afebrile the patient had 2 elevations in temperature of 37.6 and 37.8 overnight on 10/30 and 10/31, slight worsening in his WBC that had been improving dramatically (Despite decrease in steroid dosing), as well as feeling and appearing overall worse. Given above Mr. Corley's antibiotic regimen was changed back to Vancomycin and Zosyn for additional pulmonary coverage (HCAP as patient is a chronic [facility] resident). No further fevers, and patient feels well. Continue current regimen. Today is day # 5 of broad spectrum coverage. (2) JESUS (acute kidney injury): Current visit: Yes Status: Acute Evidence of acute kidney injury superimposed on CKD. This is in the setting of acute illness and sepsis, with a transient decrease in urinary output. Improvement in creatinine and normal potassium levels by by labs again this morning. Current creatinine is 2.16 from values of 2.26, 2.81 and 3 previously, with a baseline of approximately 1.5-2.5. Monitor renal function carefully, avoid nephrotoxins, and renaly dose medications when appropriate. As the patient is overall volume overloaded and had hyperkalemia he did receive low dose IV furosemide previously - will administer again today. Kayexalate discontinued. Plan on reinitiation of oral lasix and ARYA-I soon. (3) UTI (urinary tract infection) due to Enterococcus: Current visit: No Status: Chronic UTI with evidence of pansensitive enterococcus faecalis. Ampicillin discontinued as above - reinitiating Vancomycin. Day #8 total of antibiotics (including ampicillin). (4) Diabetes mellitus type 2, controlled: Current visit: Yes Status: Chronic Continue basal insulin, but changed to resistance sliding scale as the patient's blood sugars were grossly elevated. This is in the setting of both infection as well as stress dose steroid use. (5) Hypertension: Current visit: Yes Status: Chronic Initially hypotensive in the setting of sepsis, now hypertensive. IV fluids discontinued. Continue increased max dose of amlodipine and increased dose metoprolol. Carefully initiated alpha lia previously, uptitrating today. We will continue to hold ARYA inhibitor in the setting of very recent acute kidney injury on CKD. Continue prn IV Hydralazine and initiated PO Hydralazine as well. Monitor and consider initiation of additional agent if needed, reinitiate ARYA-I when able. (6) Heme positive stool: Current visit: Yes Status: Acute Increased prior stool output through Iostomy in setting of Kayexalate use, tested Heme +. Patient is chronically on steroids - change low dose oral PPI to IV BID dosing. Monitor Hgb and stool output closely - currently low but stable. Consider addition of Sucralfate if further drop in Hgb, currently low but stable. (7) Anxiety: Current visit: Yes Status: Chronic Currently on both SNRI as well as SSRI therapy (8) Chronic pain: Current visit: Yes Status: Chronic Continue current pain regimen. (9) CAD (coronary artery disease): Current visit: Yes Status: Chronic Noted. Appears quiescent. (10) Rheumatoid arthritis: Current visit: Yes Status: Chronic Maintained on Humira as an outpatient, as well as daily prednisone therapy. (11) Crohns disease: Current visit: Yes Status: Chronic Status post total colectomy, with ostomy in place that appears to be functioning well. (12) Chronic insomnia: Current visit: Yes Status: Chronic Initiated nightly mirtazapine. (13) Anemia: Current visit: Yes Status: Acute Hemoglobin low but stable, with further workup showing a low iron, low TIBC, and normal ferritin at 124, indicating a likely mixed etiology for the patient's anemia. B12 and folic acid were also checked and normal. Heme + stools as above. Continue BID PPI. (14) Hypothyroidism: Current visit: Yes Status: Chronic Continue replacement therapy. (15) DVT prophylaxis: Current visit: Yes Status: Acute Continue subcutaneous heparin. Subjective Interval history since last seen: 57-year-old resident at the [facility] admitted from [facility] on October 27 with a diagnosis of bacteremia. Mr. Corley is a chronic resident at a nursing facility due to his significant disability from rheumatoid arthritis. He was sent in for further evaluation from the [facility] to [facility] ED due to development of high fevers, with further workup showing evidence of a significant leukocytosis, elevated lactate, and eventual development of hypotension. Initially attributed to potential lower extremity cellulitis, the patient was found to have evidence of a UTI and possible findings of pneumonia by chest x-ray, as well as excoriations in his skin (lower extremities) as potential nidus for infection. Mr. Jory harrellains afebrile with improving and now resolved leukocytosis on broad spectrum antibiotics. Initial JESUS but now with resolved hyperkalemia and with creatinine value that is at or near patient's baseline. The patient continued to be significantly hypertensive yesterday prompting ongoing change to his medication regimen, and now appears to have improved blood pressures. No overnight events reported. Patient has no complaints today. Exam Const General: cooperative, not healthy appearing, no acute distress, anxious, cushingoid and disheveled Nutritional Appearance: obese Orientation: alert and oriented to person Resp Effort & Inspection: normal respiratory effort and able to speak in complete sentences Auscultation: clear to auscultation bilaterally ( ) Cardio Rate: regular rate Rhythm: regular rhythm Heart Sounds: S1 abnormal (Distant heart sounds, difficult to discern) GI Inspection: normal to inspection Palpation: soft and nontender Rectal Exam: visual inspection normal Skin General skin exam: no rashes or lesions noted (Chronic b/l LE hyperpigmentation) and dry skin Lesions: lesion noted (Linear scratches on both thighs) Neuro General: alert and oriented x3 Extrem General: normal to inspection and edema (Improved LE edema, now 3 - 4+ on the right and 2 - 3+ on left. Chronic appearing hyperpigmentation R>L) Laterality: bilateral Psych Appearance: disheveled Mental Status: mental status grossly normal Speech and Movement: delayed speech Mood: anxious mood Attitude: guarded Objective Objective Clinical Data: Abnormal lab results 11/03/17 11/03/17 Range/Units 07:02 07:02 WBC 12.00 H (4.4-10.8) k/cumm RBC 4.11 L (4.50-6.00) m/cumm Hgb 7.9 L (13.5-17.5) g/dL Hct 27.9 L (40.0-50.0) % MCV 67.9 L (80-95) fL MCH 19.2 L (27.0-33.0) pg MCHC 28.3 L (32.0-36.0) g/dL RDW 18.6 H (11.8-14.1) % Absolute Neutrophils 9.04 H (1.2-6.7) k/cumm Absolute Eosinophils 0.90 H (0.0-0.7) k/cumm Chloride 113 H (98-107) mmol/L BUN 50 H D (7-18) mg/dL Creatinine 2.16 H (0.70-1.30) mg/dL Glucose 160 H (70-100) mg/dL Calcium 7.9 L (8.5-10.1) mg/dL AST 14 L (15-37) U/L Alkaline Phosphatase 165 H (46-116) U/L Total Protein 6.1 L (6.4-8.2) g/dL Albumin 2.2 L (3.4-5.0) g/dL Vital Signs Temp 36.9 C 11/03/17 07:54 Pulse 60 11/03/17 07:54 Resp 20 11/03/17 07:54 BP 155/78 H 11/03/17 07:54 Pulse Ox 97 11/03/17 07:54 Intake & Output 11/02/17 11/03/17 11/03/17 23:59 11:59 23:59 Intake Total 1050 / 1050 170 / 170 Output Total 2700 / 2700 1600 / 1600 1700 / 1700 Balance -1650 / -1650 -1430 / -1430 -1700 / -1700 Weight 133.2 kg Intake: IV 610 / 610 50 / 50 Oral 440 / 440 120 / 120 Output: Urine 2325 / 2325 800 / 800 1550 / 1550 Stool 375 / 375 800 / 800 150 / 150 Other: Urine Color Yellow Straw Yellow Urine Appearance Clear Clear Cloudy Voiding Methods Indwelling Catheter Laboratory Results WBC 12.00 k/cumm (4.4-10.8) H 11/03/17 07:02 RBC 4.11 m/cumm (4.50-6.00) L 11/03/17 07:02 Hgb 7.9 g/dL (13.5-17.5) L 11/03/17 07:02 Hct 27.9 % (40.0-50.0) L 11/03/17 07:02 MCV 67.9 fL (80-95) L 11/03/17 07:02 MCH 19.2 pg (27.0-33.0) L 11/03/17 07:02 MCHC 28.3 g/dL (32.0-36.0) L 11/03/17 07:02 RDW 18.6 % (11.8-14.1) H 11/03/17 07:02 Plt Count 383 x1000/uL (130-400) 11/03/17 07:02 MPV 10.0 fL (8.0-11.0) 11/03/17 07:02 Immature Gran % 1.0 11/03/17 07:02 Neutrophils % 75.3 11/03/17 07:02 Lymphocytes % 10.3 11/03/17 07:02 Monocytes % 5.7 11/03/17 07:02 Eosinophils % 7.5 11/03/17 07:02 Basophils % 0.2 11/03/17 07:02 Absolute Neutrophils 9.04 k/cumm (1.2-6.7) H 11/03/17 07:02 Band Neutrophils 0.0 % 10/31/17 06:42 Absolute Lymphocytes 1.24 k/cumm (1.2-3.4) 11/03/17 07:02 Absolute Monocytes 0.68 k/cumm (0.11-0.7) 11/03/17 07:02 Absolute Eosinophils 0.90 k/cumm (0.0-0.7) H 11/03/17 07:02 Absolute Basophils 0.02 k/cumm (0.0-0.2) 11/03/17 07:02 Metamyelocytes 1.0 % 10/28/17 06:30 Differential Comment Rbc morph reviewed 11/02/17 06:20 Atypical Lymphocytes 0 10/31/17 06:42 RBC Morphology See below 11/02/17 06:20 Polychromasia Present 10/29/17 06:40 Hypochromasia 3+ 11/02/17 06:20 Poikilocytosis 2+ 11/02/17 06:20 Basophilic Stippling Present 11/01/17 06:15 Anisocytosis 3+ 11/02/17 06:20 Microcytosis 3+ 11/02/17 06:20 Ovalocytes 3+ 11/02/17 06:20 PT 10.9 sec (9.3-10.8) H 10/27/17 18:02 INR 1.1 (1.0-3.5) 10/27/17 18:02 Sodium 145 mmol/L (136-145) 11/03/17 07:02 Potassium 4.3 mmol/L (3.5-5.1) 11/03/17 07:02 Chloride 113 mmol/L (98-107) H 11/03/17 07:02 Carbon Dioxide 23.5 mmol/L (21.0-32.0) 11/03/17 07:02 Anion Gap 8.5 mmol/L (3-11) 11/03/17 07:02 BUN 50 mg/dL (7-18) H D 11/03/17 07:02 Creatinine 2.16 mg/dL (0.70-1.30) H 11/03/17 07:02 Estimated GFR/1.73 m2 31.56 (mL/min/1.73m2) 11/03/17 07:02 Glucose 160 mg/dL (70-100) H 11/03/17 07:02 Hemoglobin A1c 6.2 % (4.5-6.2) 10/28/17 06:30 Lactate 0.9 mmol/L (0.6-1.4) 10/28/17 09:48 Calcium 7.9 mg/dL (8.5-10.1) L 11/03/17 07:02 Iron 8 ug/dL (50-175) L 10/29/17 06:40 TIBC 245 ug/dL (250-450) L 10/29/17 06:40 Transferrin % Sat 3 % (20-55) L 10/29/17 06:40 Ferritin 124 ng/mL (8-388) 10/29/17 06:40 Total Bilirubin 0.3 mg/dL (0.2-1.0) 11/03/17 07:02 AST 14 U/L (15-37) L 11/03/17 07:02 ALT 17 U/L (12-78) 11/03/17 07:02 Alkaline Phosphatase 165 U/L (46-116) H 11/03/17 07:02 NT-Pro-B Natriuret Pep 4180 pg/mL (-299) H 10/28/17 06:30 Total Protein 6.1 g/dL (6.4-8.2) L 11/03/17 07:02 Albumin 2.2 g/dL (3.4-5.0) L 11/03/17 07:02 Vitamin B12 912 pg/mL (193-986) 10/29/17 06:40 Folate 14.1 ng/mL (8.6-20.0) 10/29/17 06:40 Urine Color Yellow (Yellow) 10/27/17 18:10 Urine Clarity Clear 10/27/17 18:10 Urine pH 5.5 (5-8) 10/27/17 18:10 Ur Specific [place] 1.020 (1.005-1.025) 10/27/17 18:10 Urine Protein >=300 mg/dL (Negative) H 10/27/17 18:10 Urine Ketones Negative mg/dL (Negative) 10/27/17 18:10 Urine Blood Small (Negative) H 10/27/17 18:10 Urine Nitrite Negative (Negative) 10/27/17 18:10 Urine Bilirubin Negative (Negative) 10/27/17 18:10 Urine Urobilinogen 0.2 EU/dL (Up TO 0.2) 10/27/17 18:10 Ur Leukocyte Esterase Trace (Negative) H 10/27/17 18:10 Urine RBC 10-20 (0-2) H 10/27/17 18:10 Urine WBC 20-50 HPF (0-5) 10/27/17 18:10 Ur Epithelial Cells Few HPF (Negative) 10/27/17 18:10 Urine Crystals Negative HPF (Negative) 10/27/17 18:10 Urine Bacteria Moderate HPF (Negative) 10/27/17 18:10 Urine Casts 0-2 coarse granular LPF (Negative) 10/27/17 18:10 Urine Mucus Negative (Negative) 10/27/17 18:10 Urine Other Few transitional (Negative) 10/27/17 18:10 Ur Culture Indicated? Yes 10/27/17 18:10 Urine Glucose Negative mg/dL (Negative) 10/27/17 18:10 Vancomycin Trough 18.4 ug/mL (10.0-20.0) 11/03/17 11:15 Patient ABO/Rh AB Negative 10/31/17 00:23 Antibody Screen Negative 10/31/17 00:23
[2017-11-03 16:29] VITALS: BP 118/81; PULSE 77; RESP 20; TEMP 37; O2SAT 95
--- NOTE | 2017-11-03 18:24 | NUR.NOTE ---
Visited patient at his bedside. Pt appears weak and withdrawn. Pt accepted a few bites of custard and a small sip of fruit ensure drink with some physical assist. Pt has not eating any lunch or supper otherwise. Pt stated to this RN I think I'm going to . Talked with patient further and he reports that he feels he is not getting any better. Pt verbalized that he will be going to the [facility] before he goes home. Pt was informed that his sister Yolanda called to see how he is doing. Pt with a weak and withdrawn affect, appears to appreciate 1 on 1 visits.
[2017-11-03 21:20] VITALS: BP 184/81; PULSE 104
[2017-11-03] MEDS: risperiDONE 1 MG TAB 3 MG PO (21:20)
[2017-11-03] MEDS: Sertraline 50 MG TAB PO (21:20)
[2017-11-03] MEDS: Mirtazapine 15 MG TAB PO (21:20)
[2017-11-03 22:35] VITALS: TEMP 37.1
[2017-11-04 00:36] VITALS: BP 165/77; PULSE 76; RESP 20; TEMP 37.6; O2SAT 92
[2017-11-04] MEDS: Normal Saline Flush 10 ML SYR IVP ×4 (01:48→20:26)
[2017-11-04] MEDS: Heparin 5,000 UNITS/ML VIAL 5000 UNITS SC ×3 (04:01→20:25)
[2017-11-04] MEDS: Metoprolol 25 MG TAB PO ×2 (06:27→17:14)
[2017-11-04 06:48] VITALS: BP 172/86; PULSE 72
[2017-11-04 07:33] LABS: Abs Immature Grans 0.13 k/cumm (0.0-0.09); Absolute Eosinophil Count 0.68 k/cumm (0.0-0.7); Absolute Lymphocyte Count 1.18 k/cumm (1.2-3.4); Absolute Monocyte Count 0.66 k/cumm (0.11-0.7); Absolute Neutrophil Count 8.35 k/cumm (1.2-6.7); Eosinophils % 6.2; HCT 26.6 % (40.0-50.0); HGB 7.3 g/dL (13.5-17.5); Immature Grans % 1.2; Lymphocytes % 10.7; Mean Corp. HGB Concentration 27.4 g/dL (32.0-36.0); Mean Corpuscular Hemoglobin 18.9 pg (27.0-33.0); Mean Corpuscular Volume 68.7 fL (80-95); Mean Platelet Volume 10.6 fL (8.0-11.0); Neutrophils % 75.9; Platelet Count 418 x1000/uL (130-400); RBC 3.87 m/cumm (4.50-6.00)
[2017-11-04 07:40] VITALS: BP 157/76; PULSE 68; RESP 19; TEMP 37; O2SAT 94
[2017-11-04 07:50] LABS: ALT 18 U/L (12-78); AST 11 U/L (15-37); Albumin 2.2 g/dL (3.4-5.0); Alkaline Phosphatase 162 U/L (46-116); Anion Gap 9.5 mmol/L (3-11); BUN 46 mg/dL (7-18); Bilirubin, Total 0.3 mg/dL (0.2-1.0); CO2 23.5 mmol/L (21.0-32.0); CREATININE 2.07 mg/dL (0.70-1.30); Calcium 7.9 mg/dL (8.5-10.1); Chloride 112 mmol/L (98-107); Estimated GFR 33.15 (mL/min/1.73m2); Glucose 210 mg/dL (70-100); Potassium 4.2 mmol/L (3.5-5.1); Sodium 145 mmol/L (136-145); Total Protein 6.2 g/dL (6.4-8.2)
[2017-11-04 08:05] LABS: Anisocytosis 1+; Basophilic Stippling 2+
[2017-11-04 08:06] LABS: Hypochromasia 3+; Microcytosis 2+; Poikilocytes 1+; Polychromasia Present
[2017-11-04] MEDS: amLODIPine 5 MG TAB 10 MG PO (08:42)
[2017-11-04] MEDS: Pantoprazole 40 MG VIAL IVP ×2 (08:42→20:26)
[2017-11-04] MEDS: Insulin Aspart 300 UNITS/3 ML PEN SC ×3 (08:42→17:07)
[2017-11-04] MEDS: hydrALAZINE 25 MG TAB PO ×4 (08:43→20:25)
[2017-11-04] MEDS: Venlafaxine 37.5 MG CAPCR 75 MG PO (08:43)
[2017-11-04] MEDS: predniSONE 20 MG TAB PO (08:43)
[2017-11-04] MEDS: Nystatin POWDER 15 GM JAR TP ×3 (08:44→20:26)
--- NOTE | 2017-11-04 11:19 | CMPROGNOTE_ITS ---
- If Service Date Differs Date of service: 11/04/17 Time of Service: 11:17 Care Management Progress Note S/O: Brendan is lying in bed when this ghost writer visits this morning. He continues to receive IV antibiotics. CM reviewed current plans with Brendan which remain unchanged. Brendan will continue his 10 day course of IV antibiotics and upon completion will return to [facility]. Question as to whether Brendan will need to be placed in a swingbed level of care prior to discharge once Brendan is medically cleared. A: Brendan is a 57 year old male admitted with UTI sepsis in the setting of chronic illness. Brendan is disabled and a resident of the [facility]. P: Brendan will be discharged back to the [facility] when medically ready per provider. He is receiving a 10 day course of IV antibiotics for sepsis. He will transition back to the [facility] via [facility] wheelchair van when ready.
[2017-11-04] MEDS: VANCOMYCIN 1,500 MG in Normal Saline 500 ML 333.3 MG IV (12:01)
--- NOTE | 2017-11-04 13:21 | PT.INNT ---
PT Notes PHYSICAL THERAPY NOTE 11/04/17 Attempted to see patient for PT today, pt refused stating he wanted to watch TV. Therapy attempted to encourage patient to participate, pt refused. Yolanda Chang PT
[2017-11-04] MEDS: fentaNYL 75 MCG PATCH TD (14:58)
--- NOTE | 2017-11-04 14:58 | DM INPTCON_ITS ---
DESCRIPTION/ASSESSMENT: Follow up review of diabetes as inpatient with Chronic renal disease in addition to infectious process. Blood sugars have fluctuated with yesterday's fasting blood sugar 166 and today 227. The EMR indicates he has not had basal insulin Lantus since Friday AM. His blood sugar was at its lowest when he had only one dose of his 80u Lantus. In addition, he is prescribed 25-50 units Novolog with each meal when an outpatient. Here he has only had insulin correction at the resistant level despite consuming 45-65 grams carbohydrate at a meal. His BLood sugars do have a pattern of increasing as the day progresses despite insulin correction. INTERVENTION: Brendan may benefit from adding back some basal insulin at half his usual dose at 80units Lantus and adding insulin for carbohydrate at 1 unit covers 10 grams carbohydrate as a start. Because Brendan resides in a [facility] care facility no self management support was attempted at this time. PLAN: Suggest adding insulin as above. Will follow blood sugars.
[2017-11-04 16:15] VITALS: BP 189/78; PULSE 78; RESP 20; TEMP 37.2; O2SAT 95
[2017-11-04] MEDS: Insulin Aspart 300 UNITS/3 ML PEN 10 UNITS SC (17:08)
--- NOTE | 2017-11-04 18:38 | PGE_ITS ---
Date of service: 11/04/17 Time of Service: 18:29 Assessment and Plan (1) Heme positive stool: Current visit: Yes Status: Acute Hemoglobin has drifted down to 7.3. Guaiac of the ostomy output has been heme-negative. Unclear what the losses are at this point. I suspect it is anemia of chronic disease. Will recheck counts tomorrow, if any lower we will consider for transfusion. (2) JESUS (acute kidney injury): Current visit: Yes Status: Acute (3) Sepsis: Current visit: Yes Status: Acute Renal function has improved nearly to baseline. Creatinine 2.07. Ruiz catheter is out. Continue to monitor urine output carefully. (4) Pedal edema: Current visit: Yes Status: Chronic Chronic lower extremity edema. What look like cellulitis of the right leg on admission has markedly improved. (5) Anxiety: Current visit: Yes Status: Chronic Overall anxiety symptoms are well controlled. Continue present meds. (6) Diabetes mellitus type 2, controlled: Current visit: Yes Status: Chronic Blood sugars have been stable. He has not been on basal insulin for a few days. Emilia Car recommends going back on Lantus 80 units at night. Continue to monitor blood sugars closely (7) Chronic pain: Current visit: Yes Status: Chronic Resume his outpatient pain med regimen. Duragesic 75 mcg/h patch. Oxycodone every 4 hours. (8) Rheumatoid arthritis: Current visit: Yes Status: Chronic Joint deforming rheumatoid arthritis. He is upset that he is increasingly limited especially in his hands. He now cannot write. He is almost nonambulatory. Discussed rheumatology consult as an outpatient. (9) Crohns disease: Current visit: Yes Status: Chronic Ostomy output is adequate. Benign abdominal exam. (10) UTI (urinary tract infection) due to Enterococcus: Current visit: No Status: Chronic Enterococcus UTI with group C strep bacteremia. DC the IV antibiotics and start Augmentin 875 twice daily. Trend his white count and follow vitals closely. (11) Discharge planning issues: Current visit: Yes Status: Acute Continues as a full code. Continue to monitor in acute care status. Plan is for discharge back to the [facility] once stable. Subjective Patient reports: no new complaints Interval history since last seen: Brendan is feeling quite a bit better. He still has a lot of pain in his joints and feels his rheumatoid arthritis is not adequately treated. He denies any respiratory difficulties. His Ruiz catheter became plugged. He felt like he had to void and urine was coming out around the catheter. He has been able to void on his own with the catheter removed. Denies any fever or chills or rigors. Exam Const General: cooperative, comfortable and no acute distress Chest Chest: normal inspection of the chest Resp Effort & Inspection: normal respiratory effort Auscultation: clear to auscultation bilaterally Cardio Rate: regular rate Rhythm: regular rhythm Heart Sounds: no murmurs GI Palpation: soft and nontender Skin Lesions: lesion noted (Excoriations on both thighs are improving no evidence of infection) Extrem General: pedal edema Objective Objective Clinical Data: Abnormal lab results 11/04/17 11/04/17 Range/Units 06:50 06:50 WBC 11.00 H (4.4-10.8) k/cumm RBC 3.87 L (4.50-6.00) m/cumm Hgb 7.3 L (13.5-17.5) g/dL Hct 26.6 L (40.0-50.0) % MCV 68.7 L (80-95) fL MCH 18.9 L (27.0-33.0) pg MCHC 27.4 L (32.0-36.0) g/dL RDW 19.0 H (11.8-14.1) % Plt Count 418 H (130-400) x1000/uL Absolute Neutrophils 8.35 H (1.2-6.7) k/cumm Absolute Lymphocytes 1.18 L (1.2-3.4) k/cumm Chloride 112 H (98-107) mmol/L BUN 46 H (7-18) mg/dL Creatinine 2.07 H (0.70-1.30) mg/dL Glucose 210 H (70-100) mg/dL Calcium 7.9 L (8.5-10.1) mg/dL AST 11 L (15-37) U/L Alkaline Phosphatase 162 H (46-116) U/L Total Protein 6.2 L (6.4-8.2) g/dL Albumin 2.2 L (3.4-5.0) g/dL Vital Signs Temp 37.2 C 09/11/18 16:15 Pulse 78 11/04/17 16:15 Resp 20 11/04/17 16:15 BP 189/78 H 11/04/17 16:15 Pulse Ox 95 11/04/17 16:15 Intake & Output 11/03/17 11/04/17 11/04/17 23:59 11:59 23:59 Intake Total 1330 / 1330 870 / 870 500 / 500 Output Total 2625 / 2625 1150 / 1150 200 / 200 Balance -1295 / -1295 -280 / -280 300 / 300 Weight 134 kg Intake: IV 650 / 650 110 / 110 500 / 500 Oral 680 / 680 760 / 760 Output: Urine 2250 / 2250 700 / 700 Stool 375 / 375 450 / 450 200 / 200 Other: Urine Color Yellow Yellow Urine Appearance Clear Clear Comment balloon deflated and reinflated at this time due to leakage ruiz leaking Stool Occult Blood Negative Voiding Methods Urinal Laboratory Results WBC 11.00 k/cumm (4.4-10.8) H 11/04/17 06:50 RBC 3.87 m/cumm (4.50-6.00) L 11/04/17 06:50 Hgb 7.3 g/dL (13.5-17.5) L 11/04/17 06:50 Hct 26.6 % (40.0-50.0) L 11/04/17 06:50 MCV 68.7 fL (80-95) L 11/04/17 06:50 MCH 18.9 pg (27.0-33.0) L 11/04/17 06:50 MCHC 27.4 g/dL (32.0-36.0) L 11/04/17 06:50 RDW 19.0 % (11.8-14.1) H 11/04/17 06:50 Plt Count 418 x1000/uL (130-400) H 11/04/17 06:50 MPV 10.6 fL (8.0-11.0) 11/04/17 06:50 Immature Gran % 1.2 11/04/17 06:50 Neutrophils % 75.9 11/04/17 06:50 Lymphocytes % 10.7 11/04/17 06:50 Monocytes % 6.0 11/04/17 06:50 Eosinophils % 6.2 11/04/17 06:50 Basophils % 0.0 11/04/17 06:50 Absolute Neutrophils 8.35 k/cumm (1.2-6.7) H 11/04/17 06:50 Band Neutrophils 0.0 % 10/31/17 06:42 Absolute Lymphocytes 1.18 k/cumm (1.2-3.4) L 11/04/17 06:50 Absolute Monocytes 0.66 k/cumm (0.11-0.7) 11/04/17 06:50 Absolute Eosinophils 0.68 k/cumm (0.0-0.7) 11/04/17 06:50 Absolute Basophils 0.00 k/cumm (0.0-0.2) 11/04/17 06:50 Metamyelocytes 1.0 % 10/28/17 06:30 Differential Comment Rbc morph reviewed 11/02/17 06:20 Atypical Lymphocytes 0 10/31/17 06:42 RBC Morphology See below 11/04/17 06:50 Polychromasia Present 11/04/17 06:50 Hypochromasia 3+ 11/04/17 06:50 Poikilocytosis 1+ 11/04/17 06:50 Basophilic Stippling 2+ 11/04/17 06:50 Anisocytosis 1+ 11/04/17 06:50 Microcytosis 2+ 11/04/17 06:50 Ovalocytes 3+ 11/02/17 06:20 PT 10.9 sec (9.3-10.8) H 10/27/17 18:02 INR 1.1 (1.0-3.5) 10/27/17 18:02 Sodium 145 mmol/L (136-145) 11/04/17 06:50 Potassium 4.2 mmol/L (3.5-5.1) 11/04/17 06:50 Chloride 112 mmol/L (98-107) H 11/04/17 06:50 Carbon Dioxide 23.5 mmol/L (21.0-32.0) 11/04/17 06:50 Anion Gap 9.5 mmol/L (3-11) 11/04/17 06:50 BUN 46 mg/dL (7-18) H 11/04/17 06:50 Creatinine 2.07 mg/dL (0.70-1.30) H 11/04/17 06:50 Estimated GFR/1.73 m2 33.15 (mL/min/1.73m2) 11/04/17 06:50 Glucose 210 mg/dL (70-100) H 11/04/17 06:50 Hemoglobin A1c 6.2 % (4.5-6.2) 10/28/17 06:30 Lactate 0.9 mmol/L (0.6-1.4) 10/28/17 09:48 Calcium 7.9 mg/dL (8.5-10.1) L 11/04/17 06:50 Iron 8 ug/dL (50-175) L 10/29/17 06:40 TIBC 245 ug/dL (250-450) L 10/29/17 06:40 Transferrin % Sat 3 % (20-55) L 10/29/17 06:40 Ferritin 124 ng/mL (8-388) 10/29/17 06:40 Total Bilirubin 0.3 mg/dL (0.2-1.0) 11/04/17 06:50 AST 11 U/L (15-37) L 11/04/17 06:50 ALT 18 U/L (12-78) 11/04/17 06:50 Alkaline Phosphatase 162 U/L (46-116) H 11/04/17 06:50 NT-Pro-B Natriuret Pep 4180 pg/mL (-299) H 10/28/17 06:30 Total Protein 6.2 g/dL (6.4-8.2) L 11/04/17 06:50 Albumin 2.2 g/dL (3.4-5.0) L 11/04/17 06:50 Vitamin B12 912 pg/mL (193-986) 10/29/17 06:40 Folate 14.1 ng/mL (8.6-20.0) 10/29/17 06:40 Urine Color Yellow (Yellow) 10/27/17 18:10 Urine Clarity Clear 10/27/17 18:10 Urine pH 5.5 (5-8) 10/27/17 18:10 Ur Specific [place] 1.020 (1.005-1.025) 10/27/17 18:10 Urine Protein >=300 mg/dL (Negative) H 10/27/17 18:10 Urine Ketones Negative mg/dL (Negative) 10/27/17 18:10 Urine Blood Small (Negative) H 10/27/17 18:10 Urine Nitrite Negative (Negative) 10/27/17 18:10 Urine Bilirubin Negative (Negative) 10/27/17 18:10 Urine Urobilinogen 0.2 EU/dL (Up TO 0.2) 10/27/17 18:10 Ur Leukocyte Esterase Trace (Negative) H 10/27/17 18:10 Urine RBC 10-20 (0-2) H 10/27/17 18:10 Urine WBC 20-50 HPF (0-5) 10/27/17 18:10 Ur Epithelial Cells Few HPF (Negative) 10/27/17 18:10 Urine Crystals Negative HPF (Negative) 10/27/17 18:10 Urine Bacteria Moderate HPF (Negative) 10/27/17 18:10 Urine Casts 0-2 coarse granular LPF (Negative) 10/27/17 18:10 Urine Mucus Negative (Negative) 10/27/17 18:10 Urine Other Few transitional (Negative) 10/27/17 18:10 Ur Culture Indicated? Yes 10/27/17 18:10 Urine Glucose Negative mg/dL (Negative) 10/27/17 18:10 Vancomycin Trough 18.4 ug/mL (10.0-20.0) 11/03/17 11:15 Patient ABO/Rh AB Negative 10/31/17 00:23 Antibody Screen Negative 10/31/17 00:23
[2017-11-04] MEDS: Sertraline 50 MG TAB PO (20:25)
[2017-11-04] MEDS: Amoxicillin 875/Clav. 125 TAB PO (20:25)
[2017-11-04 21:43] VITALS: BP 147/78; PULSE 62
[2017-11-04] MEDS: Melatonin 3 MG TAB PO (22:14)
[2017-11-04] MEDS: risperiDONE 1 MG TAB 3 MG PO (22:14)
[2017-11-04] MEDS: Mirtazapine 15 MG TAB PO (22:14)
[2017-11-04] MEDS: Insulin Glargine 300 UNITS/3 ML PEN 80 UNITS SC (22:15)
[2017-11-05 00:43] VITALS: BP 161/79; PULSE 61; RESP 19; TEMP 36.2; O2SAT 97
[2017-11-05] MEDS: Heparin 5,000 UNITS/ML VIAL 5000 UNITS SC (03:07)
[2017-11-05 06:33] VITALS: BP 181/81; PULSE 70
[2017-11-05] MEDS: Metoprolol 25 MG TAB PO (06:33)
[2017-11-05 06:50] LABS: Abs Immature Grans 0.11 k/cumm (0.0-0.09); Absolute Basophil Count 0.01 k/cumm (0.0-0.2); Absolute Eosinophil Count 0.88 k/cumm (0.0-0.7); Absolute Lymphocyte Count 1.33 k/cumm (1.2-3.4); Absolute Monocyte Count 0.64 k/cumm (0.11-0.7); Basophils % 0.1; Eosinophils % 8.2; Lymphocytes % 12.5; Mean Corp. HGB Concentration 28.6 g/dL (32.0-36.0); Mean Corpuscular Hemoglobin 19.7 pg (27.0-33.0); Mean Platelet Volume 10.3 fL (8.0-11.0); Neutrophils % 72.2; Platelet Count 426 x1000/uL (130-400); RBC 4.06 m/cumm (4.50-6.00); RBC Distribution Width 19.3 % (11.8-14.1); White Blood Cell Count 10.67 k/cumm (4.4-10.8)
[2017-11-05 07:11] LABS: Anion Gap 8.4 mmol/L (3-11); BUN 51 mg/dL (7-18); CO2 22.6 mmol/L (21.0-32.0); CREATININE 2.18 mg/dL (0.70-1.30); Calcium 8.2 mg/dL (8.5-10.1); Chloride 109 mmol/L (98-107); Estimated GFR 31.22 (mL/min/1.73m2); Glucose 286 mg/dL (70-100); Sodium 140 mmol/L (136-145)
[2017-11-05 07:20] VITALS: BP 115/62; PULSE 75; RESP 24; TEMP 36.6; O2SAT 94
[2017-11-05 07:32] LABS: Diff Comment RBC Morph Reviewed
[2017-11-05 07:33] LABS: Anisocytosis 1+; Hypochromasia 2+; Microcytosis 1+; Ovalocytes 2+
[2017-11-05 07:34] LABS: Poikilocytes 2+
[2017-11-05] MEDS: Amoxicillin 875/Clav. 125 TAB PO (08:38)
[2017-11-05] MEDS: predniSONE 20 MG TAB PO (08:38)
[2017-11-05] MEDS: amLODIPine 5 MG TAB 10 MG PO (08:38)
[2017-11-05] MEDS: hydrALAZINE 25 MG TAB PO (08:38)
[2017-11-05] MEDS: Pantoprazole 40 MG VIAL IVP (08:38)
[2017-11-05] MEDS: Venlafaxine 37.5 MG CAPCR 75 MG PO (08:38)
[2017-11-05] MEDS: Normal Saline Flush 10 ML SYR IVP (08:39)
[2017-11-05] MEDS: Insulin Aspart 300 UNITS/3 ML PEN 10 UNITS SC (08:40)
[2017-11-05] MEDS: Insulin Aspart 300 UNITS/3 ML PEN SC (08:41)
[2017-11-05] MEDS: Nystatin POWDER 15 GM JAR TP (08:48)
[2017-11-05 09:00] VITALS: O2SAT 94
--- NOTE | 2017-11-05 09:32 | CMDISCH_ITS ---
- If Service Date Differs Date of service: 11/05/17 Time of Service: 09:27 LACE Index Scoring Tool - Questions: Length of Stay (in days): 7 - 13 Acuity (Admit via E.D.?): Yes Comorbidities: Diabetes w/o Complication E.D. Visits: 3 - Answers: Total Score: 12 Risk of Readmission: High Risk Care Management Discharge Reason for Hospitalization: Sepsis Discharge Plan: Brendan will return to [facility] today via RCT w/c van at 1130. KATELYN spoke with Isela, [facility], to alert her of return. KATELYN also notified Abigail, [place], of time and mode of transport. SNF forms on the front of the chart for completion. Patient/Family Education Needs: Review DC instructions, any limitations, and discuss Ask Me Three Services Needed at Discharge: Intermediate Facility ([facility]), Transportation ([facility])
--- NOTE | 2017-11-05 10:37 | PT.INDS ---
PT Notes Inpatient Physical Therapy Discharge Summary Date: 11/05/17 Dates of Service: 10/29/17-11/03/17 SUBJECTIVE: NT OBJECTIVE: 10/29/17-11/03/17 Bed Mobility/Transfers: Supine-sit: SBA Sit-supine: CGA Sit-stand: MinAx1 Stand-sit: SBA Bed-chair: SBA with FWW Chair-bed: SBA with FWW Gait: SBA with bariatric FWW 80ft Balance: Static Sitting: normal Dynamic Sitting: normal Static Standing: fair Dynamic Standing: fair Assessment: Pt is a 57yr old male admitted with severe cellulitis of right leg, diagnosed with sepsis syndrome in setting of Bipolar Disorder, chronic back pain, lower extremity edema, obesity, diabetes mellitus, diabetic neuropathy, diabetic foot ulcers, rheumatoid arthritis, osteoarthritis bilateral knees, sacral decubitus ulcer, chronic renal insufficiency, coronary artery disease. Patient was seen for 8 PT visits. Progressed from CGA transfers bed to chair to SBA with use of FWW, from CGA gait with FWW 5ftx2 to SBA gait with FWW 80ft. Pt is being transferred back to the [facility], recommend continued therapy. Goals: Goals X1 week 1. Supine-Sit minAx1 2. Sit-Supine minAx1 3. Sit-Stand SBA with bariatric FWW 4. Stand-Sit SBA 5. Bed-Chair SBA with bariatric FWW 6. Chair-Bed SBA with bariatric FWW 7. Gait SBA with bariatric FWW 75ft Pt met goals # 1, 2, 4, 5, 6, 7 DISCHARGE RECOMMENDATIONS: Return to the [facility] in the area mobility of walking and moving around: projected status GP [id number]. Discharge status (if discharging) GP [id number] ABEL Chang PT
--- NOTE | 2017-11-05 10:42 | INDS_ITS ---
PT Notes Inpatient Physical Therapy Discharge Summary Date: 11/05/17 Dates of Service: 10/29/17-11/03/17 SUBJECTIVE: NT OBJECTIVE: 10/29/17-11/03/17 Bed Mobility/Transfers: Supine-sit: SBA Sit-supine: CGA Sit-stand: MinAx1 Stand-sit: SBA Bed-chair: SBA with FWW Chair-bed: SBA with FWW Gait: SBA with bariatric FWW 80ft Balance: Static Sitting: normal Dynamic Sitting: normal Static Standing: fair Dynamic Standing: fair Assessment: Pt is a 57yr old male admitted with severe cellulitis of right leg, diagnosed with sepsis syndrome in setting of Bipolar Disorder, chronic back pain , lower extremity edema, obesity, diabetes mellitus, diabetic neuropathy, diabetic foot ulcers, rheumatoid arthritis, osteoarthritis bilateral knees, sacral decubitus ulcer, chronic renal insufficiency, coronary artery disease. Patient was seen for 8 PT visits. Progressed from CGA transfers bed to chair to SBA with use of FWW, from CGA gait with FWW 5ftx2 to SBA gait with FWW 80ft. Pt is being transferred back to the [facility], recommend continued therapy. Goals: Goals X1 week 1. Supine-Sit minAx1 2. Sit-Supine minAx1 3. Sit-Stand SBA with bariatric FWW 4. Stand-Sit SBA 5. Bed-Chair SBA with bariatric FWW 6. Chair-Bed SBA with bariatric FWW 7. Gait SBA with bariatric FWW 75ft Pt met goals # 1, 2, 4, 5, 6, 7 DISCHARGE RECOMMENDATIONS: Return to the [facility] in the area mobility of walking and moving around: projected status GP [id number]. Discharge status (if discharging) GP [id number] ABEL Chang PT
--- NOTE | 2017-11-05 16:15 | W.PM.DS.N ---
Date of service: 11/05/17 Time of Service: 16:15 DS: Diagnosis Discharge Diagnosis (1) Sepsis: Start date: 10/27/17 Status: Acute Asessment and Plan: Patient presented with high fever and mental status change. Initially blood pressures were high but then about 12 hours after presentation blood pressures dropped and he required vigorous fluid resuscitation. He did not require pressor support. He was empirically started on vancomycin and Zosyn. Blood cultures came back positive for group C strep in both bottles so coverage was narrowed to ceftriaxone. Soon thereafter he spiked another fever and vancomycin and Zosyn were restarted. Urine eventually grew out enterococcus sensitive to ampicillin, gram-negative rods, mixed gram-positive growth. IV antibiotics discontinued on 11/04/2017 in favor of Augmentin 875 twice daily ?7 more days. Patient tolerated this transition well and is ready for discharge. (2) JESUS (acute kidney injury): Status: Acute Asessment and Plan: Moderate bump in creatinine which rebounded with IV hydration. Creatinine at the time of discharge 2.18. (3) Pedal edema: Status: Chronic Asessment and Plan: Chronic lower extremity edema right greater than left. On presentation his right leg was also warm and erythematous and it was presumed that he had a cellulitis in that leg. With rest and elevation the right leg cleared relatively quickly on vancomycin and Zosyn. Both legs look improved at the time of discharge. (4) Anxiety: Status: Chronic Asessment and Plan: Chronic anxiety disorder. Was not an active issue during this admission. Continue present meds. (5) Diabetes mellitus type 2, controlled: Status: Chronic Asessment and Plan: Patient's blood sugars were somewhat low so his basal insulin was held for a few days. Lantus was restarted at 80 units at at bedtime. Mealtime and correction aspart were continued. (6) Chronic pain: Status: Chronic Asessment and Plan: Chronic pain issues were addressed. He was on IV morphine during his acute phase of this illness but was transitioned back to the fentanyl patch and oral oxycodone to mimic his outpatient dosing. (7) Rheumatoid arthritis: Status: Chronic Asessment and Plan: Severe joint disfiguring rheumatoid arthritis. Patient expresses a desire to treat this more aggressively. He feels that he is now not able to write and overall his functionality is decreasing. He is requesting rheumatology referral. (8) Crohns disease: Status: Chronic Asessment and Plan: His ostomy output was stable during this admission. Appetite has improved back to baseline. No abdominal pain or evidence of an acute Crohn's flare. (9) UTI (urinary tract infection) due to Enterococcus: Status: Chronic Asessment and Plan: Urine again is growing out enterococcus species sensitive to ampicillin. Likely the source of his bacteremia and sepsis. Encouraged adequate bladder emptying after each void. Again his mobility issues are playing a role. (10) Heme positive stool: Status: Acute Asessment and Plan: Hemoglobin was low during this admission. At one point ostomy output was trace heme positive but it reverted to heme-negative prior to discharge. His hemoglobin reached a dean of 7.3 but came up to 8.0 at the time of discharge. He was not transfused during this admission. Continue to monitor low hemoglobin as an outpatient. (11) Discharge planning issues: Status: Acute Asessment and Plan: Transfer back to the [facility] for continued long-term care. Discharge Plan Disposition Patient Disposition: SNF (LEVEL 1) [facility] Condition: Improving Discharge Details Reason For Visit: SEPSIS Admit Date/Time: 10/27/17 19:03 Admit Provider: Hemanth Rodriguez Attending Provider: Hemanth Rodriguez Primary Care Provider: [facility] Hospital Course: This is a 57-year-old man that resides at the [facility] because of severe disability from arthritis. He was apparently in his normal state of health until a few hours prior to admission when he developed a high fever, chills, rigors. His temp mark to 38.6 pulse was in the 120s blood pressure 170/58. He was transported to the emergency room. In the emergency room he appeared to be septic with high fever and white count of 25,000 but his lactate was only 2.3 He got IV fluids and empirically started on Zosyn and vancomycin. He was transferred to the [facility] floor. A few hours later blood pressure dropped from 170/58 to 80/40, respirations were 40. He was transferred to the ICU, Downing catheter placed, started on IV Solu-Medrol, further resuscitation with IV fluids. -Blood cultures came back positive for group C strep. His urine grew out enterococcus, gram-negative rods, mixed gram-positive growth. He was empirically treated with Zosyn and vancomycin. When culture results were available he was transitioned to ceftriaxone briefly but subsequently spiked high fever and was put back on vancomycin and Zosyn. IV antibiotics were stopped on 11/04/2017 and he was started on Augmentin. Downing catheter was discontinued he began working with physical therapy. He overall appears to have returned back to his baseline. He is concerned about his continued worsening and crippling rheumatoid arthritis and is asking for rheumatology referral Home Meds and New Rx's Prescriptions: New fentanyl [Duragesic] 75 mcg/hr Patch 72 Hour 75 mcg Transdermal Q72H Qty: 10 RF: 0 amoxicillin-pot clavulanate 875-125 mg Tablet 1 tab PO BID Qty: 14 RF: 0 Continue lancets [FreeStyle Lancets] 1 EACH misc 1 ea Miscellaneous RF: 0 cyanocobalamin (vitamin B-12) [Vitamin B-12] 1,000 MCG tablet extended release 1,000 mcg PO DAILY Qty: 90 RF: 0 adalimumab [Humira Pen Psoriasis-Uveitis] 40 MG/0.8 ML pen injector kit 40 mg SQ Q 2 Weeks Qty: 2 RF: 11 ergocalciferol (vitamin D2) [Drisdol] 50,000 UNIT capsule 50,000 units PO DIRECTED RF: 0 multivitamin with minerals 1 EACH tablet 1 ea PO DAILY RF: 0 prednisone 5 MG tablet 20 mg PO DAILY Qty: 30 RF: 0 liraglutide [Victoza 3-Saleem] 0.6 MG/0.1 ML pen injector 1.8 mg Sub-Q DAILY RF: 0 acetaminophen 500 MG tablet 1,000 mg PO BID RF: 0 gabapentin 800 MG tablet 800 mg PO TID RF: 0 sertraline 50 MG tablet 50 mg PO 1999 RF: 0 thymol-chlorophyllin [Chlorophyll] 1 EACH tablet 3 mg PO TID RF: 0 carboxymethylcellulose-glycern [Refresh Optive] 15 ML drops 1 drp Ophthalmic BID RF: 0 aocl-lkgnqp-kuufbupn-D3-C-Mn [Mibuxioogjv-Wzayzh-U7 (C-elton)] 1 EACH capsule 1 tab PO TID RF: 0 insulin glargine [Lantus Solostar U-100 Insulin] 300 UNITS/3 ML insulin pen 80 units Sub-Q BID RF: 0 oxybutynin chloride [Ditropan XL] 15 MG tablet extended release 24hr 15 mg PO DAILY RF: 0 insulin aspart U-100 [Novolog U-100 Insulin aspart] 100 UNITS/ML solution 25 - 50 units Sub-Q AC RF: 0 potassium chloride [Klor-Con M10] 10 MEQ tablet,ER particles/crystals 20 meq PO DAILY RF: 0 venlafaxine 75 MG capsule,extended release 24hr 75 mg PO DAILY RF: 0 acetaminophen 325 MG tablet 650 mg PO Q4H PRNRF: 0 hydroxyzine HCl 50 MG tablet 50 mg PO QID PRNRF: 0 dextran 70-hypromellose [Natural Balance Tears] 15 ML drops 1 drp OU TID PRNRF: 0 amlodipine 5 MG tablet 5 mg PO DAILY RF: 0 nortriptyline 25 MG capsule 25 mg PO HS RF: 0 potassium chloride 10 mEq Capsule, Extended Release 2 cap PO DAILY RF: 0 carbamazepine [Tegretol] 200 mg Tablet 100 mg PO BID RF: 0 metoprolol succinate 25 mg Tablet Extended Release 24 Hr 25 mg PO DAILY RF: 0 melatonin 10 mg Capsule 10 mg PO .QHS RF: 0 oxycodone 10 MG tablet 10 mg PO Q4H PRN PRNQty: 40 RF: 0 Changed lisinopril 5 MG tablet 20 mg PO HS Qty: 0 RF: 0 Discontinued oxycodone-acetaminophen 1 EACH tablet 1 - 2 ea PO Q4H PRN Qty: 50 RF: 0 fentanyl [Duragesic] 1 EACH patch 72 hour 1 ea Transdermal Q72H Qty: 10 RF: 0 naproxen sodium 220 MG capsule 440 mg PO BID RF: 0 amoxicillin-pot clavulanate 1 TAB tablet 1 tab PO BID Qty: 15 RF: 0 oxycodone 10 MG tablet 10 mg PO Q4H RF: 0 No Action risperidone [Risperdal] 3 MG tablet 3 mg PO HS Qty: 90 RF: 3 levothyroxine 50 MCG tablet 50 mcg PO DAILY Qty: 90 RF: 3 folic acid 1 MG tablet 1 mg PO DAILY Qty: 90 RF: 3 omeprazole 20 MG capsule,delayed release(DR/EC) 20 mg PO DAILY Qty: 90 RF: 3 furosemide 40 MG tablet 40 mg PO QAM Qty: 7 RF: 0 blood sugar diagnostic [FreeStyle Lite Strips] 1 EACH strip 1 ea Miscellaneous TID Qty: 100 RF: 11 omega-3 acid ethyl esters [Lovaza] 1 GM capsule 1 gm PO BID Qty: 180 RF: 3 pen needle, diabetic [Pen Needle] 1 EACH needle 1 ea Miscellaneous DAILY Qty: 100 RF: 5 Discharge Instructions Instructions: Sepsis (GEN) Stand Alone Forms: Nursing Discharge Form Activity:: Activity as Tolerated Equipment/Supplies:: No Equipment Needed Diet:: Diabetic Diet Discharge Orders Discharge Orders: Discharge Order (Routine); Ordered 11/05/17 Ordered By: Hemanth Rodriguez Discharge Data Discharge Date/Time-TO BE ENTERED AT DEPARTURE: 11/05/17 11:31 Exam Narrative Exam Narrative: Patient looked much improved prior to discharge. He was awake alert, thought processes were clear. He had no active pain issues. He was largely sedentary throughout his stay here. No respiratory issues. No chest pain no fever chills or rigors. Lung exam was completely clear, chest benign, abdomen nontender, ostomy working well, lower extremities edema much improved with some wrinkling of lower extremity tissues. No erythema. DS: Data Vitals/I&O Vitals and I&O: Vital Signs Temp 36.6 C 11/05/17 07:20 Pulse 75 11/05/17 07:20 Resp 24 11/05/17 07:20 BP 115/62 11/05/17 07:20 Pulse Ox 94 L 11/05/17 09:00 Intake & Output 11/04/17 11/05/17 11/05/17 23:59 11:59 23:59 Intake Total 890 / 890 1060 / 1060 Output Total 1000 / 1000 1425 / 1425 Balance -110 / -110 -365 / -365 Weight 135.6 kg Intake: IV 520 / 520 30 / 30 Oral 370 / 370 1030 / 1030 Output: Urine 300 / 300 575 / 575 Stool 700 / 700 850 / 850 Other: Urine Color Yellow Yellow Urine Appearance Clear Clear Voiding Methods Urinal Urinal Labs on day of discharge: Labs from last 24 hours 11/05/17 11/05/17 06:38 06:38 WBC 10.67 RBC 4.06 L Hgb 8.0 L Hct 28.0 L MCV 69.0 L MCH 19.7 L MCHC 28.6 L RDW 19.3 H Plt Count 426 H MPV 10.3 Immature Gran % 1.0 Neutrophils % 72.2 Lymphocytes % 12.5 Monocytes % 6.0 Eosinophils % 8.2 Basophils % 0.1 Absolute Neutrophils 7.70 H Absolute Lymphocytes 1.33 Absolute Monocytes 0.64 Absolute Eosinophils 0.88 H Absolute Basophils 0.01 Differential Comment Rbc morph reviewed RBC Morphology See below Hypochromasia 2+ Poikilocytosis 2+ Anisocytosis 1+ Microcytosis 1+ Ovalocytes 2+ Sodium 140 Potassium 5.0 Chloride 109 H Carbon Dioxide 22.6 Anion Gap 8.4 BUN 51 H Creatinine 2.18 H Estimated GFR/1.73 m2 31.22 Glucose 286 H Calcium 8.2 L
--- NOTE | 2017-11-06 09:02 | PTTR_ITS ---
Date of service: 10/30/17 Time of Service: 10:50 PT Notes Inpatient Physical Therapy Treatment Note Date: 10/30/17 PRECAUTIONS: Standard precautions SUBJECTIVE: Pt sitting in chair, agreeable to therapy session. RN in room to assist with mobility. OBJECTIVE: General observation: telemetry, 02 monitor. Pt on room air. PAIN: no c/o pain BED MOBILITY/TRANSFERS * Pt wearing sneakers for all mobility requiring max A to don/doff Sit-stand: minAx1-2. Pt requires step by step cues for hand and foot placement to get into position for standing transfers. Pt stating to therapist I can't get up when directed to get into position to prepare for standing. Pt directing nursing and therapist how to assist him to standing position you have to lift me up. Stand-sit: SBA Chair-bed: SBA with bariatric FWW Sit-supine: Tricia for LE's into bed Rolling R: independent GAIT * Pt wearing sneakers for all gait mobility Assistive Device: bariatric FWW Weight bearing: as tolerated Assist: CGA Distance: 50ftx2 Deviation: wide stance and base of support, external rotation bilateral hips, decreased stride length, decreased tanya. Pt gait trained 50ft then required sitting rest break of 10min for breathing recovery due to exertional dyspnea. 02 sats 98% on room air, heart rate 104bpm decreased to 94bpm with rest. Pt gait trained 50ft x1 back to room and positioned in bed. Pt very fatigued after gait training completed. ASSESSMENT: Pt able to mobilize to gait training with bariatric FWW in hallways , deconditioned, fatigued easily. Pt has difficulty following instruction and receiving direction with transfers and mobility, choosing to ignore therapist questions when asked or becoming directive regarding how he wants to proceed telling therapist or nursing what to do. Safety is a concern with mobility due to this behavior, recommend keeping chair close with gait in hallways and 2 person assist at this time until patient is stronger with mobility to prevent falls or improves ability to follow directions. PLAN: Progress transfers Progress gait mobility TREATMENT TIME/CODES 35min TAx2 [id number] Yolanda Chang PT
--- NOTE | 2017-11-06 09:13 | PT.INTREAT ---
Date of service: 10/31/17 Time of Service: 10:45 PT Notes Date: 10/31/17 PRECAUTIONS: Standard precautions SUBJECTIVE: Pt sitting in chair, when asked if he wanted to walk and participate in therapy session, pt did not answer therapist. Pt allowed RN and PT to change gown, and get ready for mobility training, but once up patient turned and sat on the bed with no notice and refused to partipate in PT stating I am too tired. RN spoke with patient about communicating intentions prior to movements so patient and team can be on the same page, pt did not reply. OBJECTIVE: General observation: telemetry, 02 monitor, sara PAIN: no c/o pain BED MOBILITY/TRANSFERS * Pt wearing sneakers for all mobility requiring max A to don/doff Sit-stand: minAx1-2. Pt r Chair-bed: SBA with bariatric FWW Stand-sit: SBA Sit-supine: CGA for LE's into bed GAIT * Pt wearing sneakers for all gait mobility Assistive Device: bariatric FWW Weight bearing: as tolerated Assist: CGA Distance: Therapist attempted to initiate gait training, pt took steps from chair to bed then sat on bed and refused gait. Pt stood to take 4 side steps to the left to position higher in bed prior to lying down. ASSESSMENT: Pt with decreased communication today, decreased motivation to participate in therapy session, reports feeling tired. Will continue attempts. PLAN: Progress transfers Progress gait mobility TREATMENT TIME/CODES 10min TAx1 10:40 Yolanda Chang PT
--- NOTE | 2017-11-06 09:23 | PT.INTREAT ---
Date of service: 10/31/17 Time of Service: 15:05 PT Notes PRECAUTIONS:Fall SUBJECTIVE: Brendan is agreeable to PT OBJECTIVE: PAIN: No c/o pain BED MOBILITY/TRANSFERS Supine-sit: SBA with HOB at 30 degrees Sit-stand: SBA Stand-sit: SBA Bed-Chair: SBA GAIT Assistive Device: Bariatric FWW Weight bearing: Full Assist: SBA Distance: 5' THEREX: Patient completed LAQ and hip flexion exercises for LE strengthening, as well as static standing x2 minutes. ASSESSMENT: Patient tolerated session with increased fatigue and SOB. He was able to demonstrate mfgggw-[id number]-[id number] transfer, requiring SBA only at this time. PLAN: Continue with PT's POC TREATMENT CODE/TIME: TA/TP; 25 minutes
--- NOTE | 2017-11-06 09:43 | PT.INTREAT ---
Date of service: 11/01/17 Time of Service: 11:05 PT Notes Inpatient Physical Therapy Treatment Note PRECAUTIONS:Fall SUBJECTIVE: Brendan is agreeable to PT OBJECTIVE: PAIN: No c/o pain BED MOBILITY/TRANSFERS Sit-stand: Min A (from low surface) Stand-sit: SBA GAIT Assistive Device: Bariatric FWW Weight bearing: Full Assist: SBA Distance: 60' Deviation: SOB THEREX: Ankle pumps performed x20, bilaterally ASSESSMENT: Patient tolerated session with increased SOB and fatigue. Patient would benefit from continued gait and transfer training as well as strengthening to improve ability to perform functional tasks. PLAN: Continue with PT's POC TREATMENT CODE/TIME: 20 minutes; TA
--- NOTE | 2017-11-06 09:51 | PT.INTREAT ---
Date of service: 11/02/17 Time of Service: 12:08 PT Notes Inpatient Physical Therapy Treatment Note PRECAUTIONS:Fall SUBJECTIVE: Brendan reports that he did not sleep well last night and feels pretty tired today. OBJECTIVE: PAIN: No c/o pain BED MOBILITY/TRANSFERS Sit-stand: Min A (from low surface) Stand-sit: SBA GAIT Assistive Device: Bariatric FWW Weight bearing: Full Assist: SBA Distance: 60' Deviation: SOB THEREX: Patient completed a LE strengthening program, as per flow sheet. Patient was able to tolerate a slight progression in his program today. ASSESSMENT: Patient tolerated session without complaints. He did require an extended rest following gait training due to significant SOB. He also required rests between exercises due to SOB and fatigue. PLAN: Continue with PT's POC TREATMENT CODE/TIME: 25 minutes; TA/TP
--- NOTE | 2017-11-06 10:10 | PT.INTREAT ---
Date of service: 11/03/17 Time of Service: 11:10 PT Notes Inpatient Physical Therapy Treatment Note PRECAUTIONS: Fall SUBJECTIVE: On reports that he is not feeling well today, although it is willing to participate in PT. OBJECTIVE: PAIN: No complaints of pain BED MOBILITY/TRANSFERS Sit-stand: Min A (from low surface) Stand-sit: SBA GAIT Assistive Device: FWW Weight bearing: Full Assist: SBA Distance: 80' Deviation: SOB VITALS: SaO2: 97% on RA post gait training THEREX: Patient completed a lower extremity strengthening program, as per flow sheet. ASSESSMENT: Patient tolerated a progression in gait distance with FWW support and SBA with SOB with activity. Patient requires significant rest break to recover following gait training. PLAN: Continue with PT's POC TREATMENT CODE/TIME: 25 minutes; TA/TP
--- NOTE | 2017-11-06 13:15 | IN_ITS ---
Date of service: 10/29/17 Time of Service: 11:00 PT Notes Inpatient Physical Therapy Evaluation Date: 10/29/17 Referring Doctor: Hemanth Rodriguez PT Orders: PT CONSULT: sepsis syndrome, weakness, immobility secondary to severe arthritis Precautions: Fall precautions, Contact Precautions Patient Profile/Admitting Diagnosis: Pt is a 57yr old male admitted with severe celluliitis of right leg, diagnosed with sepsis syndrome PMHX: Bipolar Disorder, chronic back pain, lower extremity edema, obesity, diabetes mellitus, diabetic neuropathy, diabetic foot ulcers, rheumatoid arthritis, osteoarthritis bilateral knees, sacral decubitus ulcer, chronic renal insufficiency, coronary artery disease, crohn's disease, s/p colectomy, anemia, urinary tract infection, dyslipidemia, hypoandrogenism, cholelithiasis, hypertension Social History/Home Situation: Resident of [facility]. Per patient he was ambulatory with FWW ~ 100ft independently Equipment Owned/DME: FWW Subjective: Pt sitting in chair in room finishing breakfast, agreeable to PT consult. States he feels weak. Reports he only wants to walk wearing his sneakers, sneakers are available in room. Objective: General Observation: telemetry, R UE IV, ruiz catheter Mental Status: A& O to name, location, circumstances Pain: c/o pain bilateral shoulders and right elbow with movement due to arthritis ROM: Right Upper Extremity: AAROM shoulder flexion 70, abduction 50, elbow -20 extension, wrist WNL Left Upper Extremity: AAROM shoulder flexion 80, abduction 55, elbow -10 extension, wrist WNL Right Lower Extremity: AAROM hip flexion 100, knee flexion 100, ankle to neutral DF Left Lower Extremity: AAROM hip flexion 100, knee flexion 100, ankle to neutral DF Strength: Right Upper Extremity: 1/5 shoulder flexion/abducation, 2/5 bicep, 4/5 chain repairer Left Upper Extremity: 1/5 shoulder flexion/abduction, 2/5 bicep, 3/5 chain repairer Right Lower Extremity: 1/5 hip flexion, 2/5 quad, 3/5 DF Left Lower Extremity: 2/5 hip flexion, 2/5 quad, 3/5 DF Bed Mobility/Transfers: * Pt required maxA to don bilateral sneakers Sit-stand from low chair: ModAx2 with bariatric FWW Sit-stand from raised bed: CGA with bariatric FWW Chair-bed: CGA with bariatric FWW Bed-chair: CGA with bariatric FWW Stand-sit: SBA. Pt prefers to sit in recliner chair with 2 pillows under hips for elevation and LE's elevated Gait: * sneakers on for gait mobility CGA with bariatric FWW 5ftx2, stood at bedside for 5 min (2x), gait in room for transfers only at this time due to weakness. Pt left up in chair Balance: Static Sitting: normal Dynamic Sitting: normal Static Standing: fair Dynamic Standing: fair Special Tests: Mobility Limitations Standardized Measure [facility] AM-PAC 6 clicks Basic Mobility Inpatient Short Form: Raw Score: 14 Standardized Score: 38.10 CMS Score:61.29% CMS Modifier: CL Informed Consent/Education: Patient instructed in purpose of PT consult and plan of care. Assessment: Pt is a 57yr old male admitted with severe cellulitis of right leg, diagnosed with sepsis syndrome in setting of Bipolar Disorder, chronic back pain , lower extremity edema, obesity, diabetes mellitus, diabetic neuropathy, diabetic foot ulcers, rheumatoid arthritis, osteoarthritis bilateral knees, sacral decubitus ulcer, chronic renal insufficiency, coronary artery disease. Patient presents with the following impairment level findings: decreased bilateral shoulder and elbow ROM and painful joints due to arthritis making it difficult to use his arms for transfers and gait mobility, decreased strength in bilateral UE's and bilateral LE's making it difficult to perform bed mobility , transfers and gait, decreased static and dynamic standing balance putting him at high risk for falls, requiring bariatric FWW for gait stability, decreased gait distance due to weakness from RA and recent immobility due to hospitalization. Pt will benefit from skilled therapy intervention, anticipate return to the [facility] when medically stable. Impairments are contributing to the following functional limitations: AMPA score CMS Score:61.29% Patient is assessed as a Moderate 25459 complexity based on the following: History: severe celluliitis of right leg, diagnosed with sepsis syndrome in setting of Bipolar Disorder, chronic back pain, lower extremity edema, obesity , diabetes mellitus, diabetic neuropathy, diabetic foot ulcers, rheumatoid arthritis, osteoarthritis bilateral knees, sacral decubitus ulcer, chronic renal insufficiency, coronary artery disease. Examination: decreased bilateral shoulder and elbow ROM and painful joints due to arthritis making it difficult to use his arms for transfers and gait mobility , decreased strength in bilateral UE's and bilateral LE's making it dfficult to perform bed mobility, transfers and gait, decreased static and dynamic standing balance putting him at high risk for falls, requiring bariatric FWW for gait stability, decreased gait distance due to weakness from RA and recent immobility due to hospitalization. Presentation: evolving Decision Making: AMPAC score CMS Score:61.29% Goals: Goals X1 week 1. Supine-Sit minAx1 2. Sit-Supine minAx1 3. Sit-Stand SBA with bariatric FWW 4. Stand-Sit SBA 5. Bed-Chair SBA with bariatric FWW 6. Chair-Bed SBA with bariatric FWW 7. Gait SBA with bariatric FWW 75ft Plan of Care/Treatment Plan: 1-2x/day, 7 days/week x 1 week. Plan of care has been reviewed with the DRAPERY AND UPHOLSTERY MEASURER providing the service under Physical Therapy direction. Initiate Physical Therapy intervention for strengthening, bed mobility, transfers, gait, stairs, balance training, use of assistive device. DISCHARGE RECOMMENDATIONS: Return to the [facility] TREATMENT CODES: 30min IE 10:45 G Codes in the area mobility of walking and moving around: current status [id number] CL; projected status GP [id number]. Discharge status (if discharging) GP [id number] CL based on AMPAC score CMS Score:61.29% Yolanda Chang PT
== END 2017-11-05 11:31 | disposition skilled nursing facility (03) | DRG 872 ==
LOC: ER 19:51 → MS 20:32 → ICU 10-28 04:58 → MS 11-02 18:55
PROVIDERS: Internal Medicine; Admitting Provider Family Medicine; Emergency Provider Emergency Medicine; PCP Family Medicine; Visit Provider Family Medicine
DX: A40.8 Other streptococcal sepsis (principal); L03.115 Cellulitis of right lower limb; R65.20 Severe sepsis without septic shock; E87.5 Hyperkalemia; D63.1 Anemia in chronic kidney disease; Z93.3 Colostomy status; L89.159 Pressure ulcer of sacral region, unspecified stage; E11.42 Type 2 diabetes mellitus with diabetic polyneuropathy; E11.22 Type 2 diabetes mellitus with diabetic chronic kidney disease; N18.9 Chronic kidney disease, unspecified; I12.9 Hypertensive chronic kidney disease with stage 1 through stage 4 chronic kidney disease, or unspecified chronic kidney disease; Z79.891 Long term (current) use of opiate analgesic; Z90.49 Acquired absence of other specified parts of digestive tract; Z79.52 Long term (current) use of systemic steroids; Z67.31 Type AB blood, Rh negative
CPT/HCPCS: 36415; 36569; 80048; 80053; 86850; 86900; 86901; 87040; 87077; 87081; 96361; 96365; 96368; 97110; 97162; 97530; 99223; 99232; 99233; 99239; 99285; 71045; 80202; 81003; 81015; 82607; 82728; 82746; 83036; 83540; 83550; 83605; 83880; 84132; 85014; 85018; 85025; 85610; 87086; 87186; J0290; J0360; J0610; J1644; J1941; J2405; J2543; J2930; J3490; J7512

== ENCOUNTER 2017-11-09 02:04 | Inpatient (IN) | payer MEDICARE, MEDICAID, SELFPAY ==
[2017-11-09] VITALS (81 sets, daily range): BP systolic 61–252; BP diastolic 30–200; PULSE 0–150; RESP 0–32; TEMP 36.9–37.4; O2SAT 54–100
--- NOTE | 2017-11-09 02:23 | DI.RAD_ITS ---
SYMPTOM/DIAGNOSIS: FEVER, ALTERED MENTAL STATUS PORTABLE AP CHEST: There is patient motion present. Heart is mildly enlarged. Pulmonary vasculature is within normal limits. The lungs show no focal consolidating infiltrate, effusion or pneumothorax. The bones are intact. There are again seen post surgical changes with resections of the distal ends of both clavicles. This is unchanged dating back to 2017. IMPRESSION: No acute pulmonary process.
--- NOTE | 2017-11-09 02:23 | W.ED.GENAD ---
Discharge Plan Disposition Patient Disposition: [facility] INPATIENT Condition: Serious Discharge Details Chief Complaint: Fever Clinical Impression: Fever, JESUS (acute kidney injury), Altered mental status, Acute hyperkalemia Reason For Visit: SUREKHA Primary Care Provider: Anne Horowitz ED Provider: Jeferson [place] Meds and New Rx's Prescriptions: No Action risperidone [Risperdal] 3 MG tablet 3 mg PO HS Qty: 90 RF: 3 levothyroxine 50 MCG tablet 50 mcg PO DAILY Qty: 90 RF: 3 folic acid 1 MG tablet 1 mg PO DAILY Qty: 90 RF: 3 omeprazole 20 MG capsule,delayed release(DR/EC) 20 mg PO DAILY Qty: 90 RF: 3 lancets [FreeStyle Lancets] 1 EACH misc 1 ea Miscellaneous RF: 0 furosemide 40 MG tablet 40 mg PO QAM Qty: 7 RF: 0 blood sugar diagnostic [FreeStyle Lite Strips] 1 EACH strip 1 ea Miscellaneous TID Qty: 100 RF: 11 omega-3 acid ethyl esters [Lovaza] 1 GM capsule 1 gm PO BID Qty: 180 RF: 3 cyanocobalamin (vitamin B-12) [Vitamin B-12] 1,000 MCG tablet extended release 1,000 mcg PO DAILY Qty: 90 RF: 0 pen needle, diabetic [Pen Needle] 1 EACH needle 1 ea Miscellaneous DAILY Qty: 100 RF: 5 ergocalciferol (vitamin D2) [Drisdol] 50,000 UNIT capsule 50,000 units PO DIRECTED RF: 0 prednisone 5 MG tablet 20 mg PO DAILY Qty: 30 RF: 0 acetaminophen 500 MG tablet 1,000 mg PO BID RF: 0 gabapentin 800 MG tablet 800 mg PO TID RF: 0 sertraline 50 MG tablet 50 mg PO 1999 RF: 0 thymol-chlorophyllin [Chlorophyll] 1 EACH tablet 3 mg PO TID RF: 0 carboxymethylcellulose-glycern [Refresh Optive] 15 ML drops 1 drp Ophthalmic BID RF: 0 krfn-bcvfvn-bmqjwdqg-D3-C-Mn [Czxzkupznid-Lubnom-E3 (C-elton)] 1 EACH capsule 1 tab PO TID RF: 0 insulin glargine [Lantus Solostar U-100 Insulin] 300 UNITS/3 ML insulin pen 80 units Sub-Q BID RF: 0 oxybutynin chloride [Ditropan XL] 15 MG tablet extended release 24hr 15 mg PO DAILY RF: 0 insulin aspart U-100 [Novolog U-100 Insulin aspart] 100 UNITS/ML solution 25 - 50 units Sub-Q AC RF: 0 potassium chloride [Klor-Con M10] 10 MEQ tablet,ER particles/crystals 20 meq PO DAILY RF: 0 venlafaxine 75 MG capsule,extended release 24hr 75 mg PO DAILY RF: 0 acetaminophen 325 MG tablet 650 mg PO Q4H PRNRF: 0 hydroxyzine HCl 50 MG tablet 50 mg PO QID PRNRF: 0 dextran 70-hypromellose [Natural Balance Tears] 15 ML drops 1 drp OU TID PRNRF: 0 amlodipine 5 MG tablet 5 mg PO DAILY RF: 0 nortriptyline 25 MG capsule 25 mg PO HS RF: 0 carbamazepine [Tegretol] 200 mg Tablet 100 mg PO BID RF: 0 metoprolol succinate 25 mg Tablet Extended Release 24 Hr 25 mg PO DAILY RF: 0 melatonin 10 mg Capsule 10 mg PO .QHS RF: 0 fentanyl [Duragesic] 75 mcg/hr Patch 72 Hour 75 mcg Transdermal Q72H Qty: 10 RF: 0 amoxicillin-pot clavulanate 875-125 mg Tablet 1 tab PO BID Qty: 14 RF: 0 lisinopril 5 MG tablet 20 mg PO HS Qty: 0 RF: 0 oxycodone 10 MG tablet 10 mg PO Q4H PRN PRNQty: 40 RF: 0 Medical Decision Making [facility] Narrative Medical decision making narrative: Patient arrived here altered but awake. Blood pressure and heart rate are normal. He is not febrile here. Saturations are little low but he is morbidly obese and snoring. Lungs actually sound relatively clear with some scattered rhonchi. Will get IV established and draw labs including blood cultures. Straight cath urine and portable chest x-ray ordered. Blood pressures have periodically been soft but systolic has never been below 90. Lactic acid is less than 1. CBC still pending. Chemistry significant for acute kidney injury with creatinine back up to 3.8 and potassium 6.2 morning. Amp of D50, 10 units Regular Insulin, 1 amp calcium gluconate all ordered to help bring potassium down. We will switch over from LR to saline once the bolus is in. Zosyn and vancomycin ordered for antibiotics. Lab unable to obtain blood cultures. Urinalysis negative this morning. Chest x-ray per my review negative. No definitive source for his fever and altered mental status. He is not complaining of headache. His abdomen appears to be benign. No obvious cellulitis or skin structure infection. Case with hospitalist, Dr. Bravo. Patient to be admitted to the ICU for further evaluation and management. Medical Records Medical records reviewed: Yes I reviewed the patient's medical records. Lab Data Lab results reviewed: Yes I reviewed the patient's lab results. ECG Data Attestation: I personally reviewed and interpreted this ECG (s) as follows: Prior ECG tracings: not available for review Interpretation: Sinus rhythm at a rate of 81 with normal axis and intervals. No acute ST changes. No evidence of hyperkalemia changes. HPI - General Adult General Mode of arrival: EMS. Date/Time Provider Initiated Documentation: 11/09/17 02:12. Limitations to Documentation: altered mental status. Information obtained by: RN/MD and old records reviewed. HPI Narrative: Patient brought in by EMS from [facility] for evaluation of altered mental status and fever. Patient recently discharged from [facility] after an admission for sepsis. Currently on Augmentin twice a day. Review of the previous records suggest he was being treated for enterococcus UTI and sepsis. Per nurse at [facility] he spiked a fever tonight with rigors. He has become altered. Report of transient hypotension but none for EMS during transport. Patient arrives awake and following simple commands but not coherent otherwise. Related Data Home Medications Medication Instructions Recorded Confirmed folic acid 1 mg PO DAILY #90 tab-cap 05/01/12 11/09/17 lancets [FreeStyle Lancets] ea 05/01/12 11/09/17 levothyroxine 50 mcg PO DAILY #90 tab-cap 05/01/12 11/09/17 omeprazole 20 mg PO DAILY #90 tab-cap 05/01/12 11/09/17 risperidone [Risperdal] 3 mg PO HS #90 tab-cap 05/01/12 11/09/17 furosemide 40 mg PO QAM #7 tab-cap 05/14/12 11/09/17 blood sugar diagnostic [FreeStyle #100 strip 05/29/12 11/09/17 Lite Strips] omega-3 acid ethyl esters [Lovaza] 1 gm PO BID #180 cap 06/11/12 11/09/17 cyanocobalamin (vitamin B-12) 1,000 mcg PO DAILY #90 tab 08/07/12 11/09/17 [Vitamin B-12] pen needle, diabetic [Pen Needle] #100 ea 06/10/13 11/09/17 ergocalciferol (vitamin D2) 50,000 units PO DIRECTED NS 04/21/14 11/09/17 [Drisdol] acetaminophen 1,000 mg PO BID 10/19/15 11/09/17 carboxymethylcellulose-glycern 1 drp OPHTHALMIC BID 10/19/15 11/09/17 [Refresh Optive] gabapentin 800 mg PO TID 10/19/15 11/09/17 jpqh-vohluz-artvmtmw-D3-C-Mn 1 tab PO TID 10/19/15 11/09/17 [Veelctllspg-Lggkqg-Q7 (C-elton)] insulin glargine [Lantus Solostar 80 units SUB-Q BID 10/19/15 11/09/17 U-100 Insulin] sertraline 50 mg PO 2000 10/19/15 11/09/17 thymol-chlorophyllin [Chlorophyll] 3 mg PO TID 10/19/15 11/09/17 insulin aspart U-100 [Novolog 25 - 50 units SUB-Q AC 10/20/15 11/09/17 U-100 Insulin aspart] oxybutynin chloride [Ditropan XL] 15 mg PO DAILY 10/20/15 11/09/17 venlafaxine 75 mg PO DAILY 01/08/16 11/09/17 acetaminophen 650 mg PO Q4H PRN 07/08/17 11/09/17 amlodipine 5 mg PO DAILY 07/08/17 11/09/17 dextran 70-hypromellose [Natural 1 drp OU TID PRN 07/08/17 11/09/17 Balance Tears] hydroxyzine HCl 50 mg PO QID PRN 07/08/17 11/09/17 nortriptyline 25 mg PO HS 07/08/17 11/09/17 carbamazepine [Tegretol] 100 mg PO BID 10/27/17 11/09/17 melatonin 10 mg PO .QHS 10/27/17 11/09/17 metoprolol succinate 25 mg PO DAILY 09/03/18 09/16/18 Previous Rx's Medication Instructions Recorded prednisone 20 mg PO DAILY #30 tab 06/24/13 potassium chloride [Klor-Con M10] 20 meq PO DAILY tabcr 10/26/15 amoxicillin-pot clavulanate 1 tab PO BID #14 tab 11/05/17 fentanyl [Duragesic] 75 mcg TRANSDERMAL Q72H #10 ea 11/05/17 lisinopril 20 mg PO HS #0 tab 11/05/17 oxycodone 10 mg PO Q4H PRN PRN #40 tab 11/05/17 Allergies Allergy/AdvReac Type Severity Reaction Status Date / Time No Known Allergies Allergy Unverified 11/09/17 03:12 General Stated Complaint: Fever YVES: 3 Review of Systems Review of Systems Unobtainable due to mental status Exam Const General: no acute distress Nutritional Appearance: obese morbidly obese Orientation: awake, oriented to person and confused HENMT Head: normocephalic and atraumatic Mouth: mucous membranes dry Eyes Conjunctivae: conjunctivae normal Pupils: PERRL Resp Effort & Inspection: normal respiratory effort Auscultation: rhonchi (scattered) Cardio Rate: regular rate Rhythm: regular rhythm Heart Sounds: S1 normal and S2 normal Pulses: normal peripheral pulses GI Inspection: non-distended Palpation: soft, no guarding and nontender Skin General skin exam: no erythema and other (venous stasis changes of LE) Rashes: no rashes Neuro General: awake, oriented Patient Orientation: Person and confused Extrem General: edema (generalized body edema) Course Vital Signs Temperature 98.6 F 11/09/17 02:12 Pulse 77 11/09/17 02:12 Respiratory Rate 11/09/17 02:12 Blood Pressure 112/60 11/09/17 02:12 Temperature 98.6 F 11/09/17 02:12 Pulse 77 11/09/17 02:12 Respiratory Rate 11/09/17 02:12 Blood Pressure 112/60 11/09/17 02:12 Critical Care Time Critical Care Time: Yes Total Critical Care Time: 45 Attestation: fever, altered mental status, hyperkalemia
--- NOTE | 2017-11-09 02:27 | ED.GENADUL_ITS ---
Discharge Plan Disposition Patient Disposition: [facility] INPATIENT Condition: Serious Discharge Details Chief Complaint: Fever Clinical Impression: Fever, JESUS (acute kidney injury), Altered mental status, Acute hyperkalemia Reason For Visit: SUREKHA Primary Care Provider: Anne Horowitz ED Provider: Jeferson Lockwood [place] Meds and New Rx's Prescriptions: No Action risperidone [Risperdal] 3 MG tablet 3 mg PO HS Qty: 90 RF: 3 levothyroxine 50 MCG tablet 50 mcg PO DAILY Qty: 90 RF: 3 folic acid 1 MG tablet 1 mg PO DAILY Qty: 90 RF: 3 omeprazole 20 MG capsule,delayed release(DR/EC) 20 mg PO DAILY Qty: 90 RF: 3 lancets [FreeStyle Lancets] 1 EACH misc 1 ea Miscellaneous RF: 0 furosemide 40 MG tablet 40 mg PO QAM Qty: 7 RF: 0 blood sugar diagnostic [FreeStyle Lite Strips] 1 EACH strip 1 ea Miscellaneous TID Qty: 100 RF: 11 omega-3 acid ethyl esters [Lovaza] 1 GM capsule 1 gm PO BID Qty: 180 RF: 3 cyanocobalamin (vitamin B-12) [Vitamin B-12] 1,000 MCG tablet extended release 1,000 mcg PO DAILY Qty: 90 RF: 0 pen needle, diabetic [Pen Needle] 1 EACH needle 1 ea Miscellaneous DAILY Qty: 100 RF: 5 ergocalciferol (vitamin D2) [Drisdol] 50,000 UNIT capsule 50,000 units PO DIRECTED RF: 0 prednisone 5 MG tablet 20 mg PO DAILY Qty: 30 RF: 0 acetaminophen 500 MG tablet 1,000 mg PO BID RF: 0 gabapentin 800 MG tablet 800 mg PO TID RF: 0 sertraline 50 MG tablet 50 mg PO 1999 RF: 0 thymol-chlorophyllin [Chlorophyll] 1 EACH tablet 3 mg PO TID RF: 0 carboxymethylcellulose-glycern [Refresh Optive] 15 ML drops 1 drp Ophthalmic BID RF: 0 pmvf-wxcuju-luiacmrc-D3-C-Mn [Mmmuravwekb-Pmutqe-X5 (C-elton)] 1 EACH capsule 1 tab PO TID RF: 0 insulin glargine [Lantus Solostar U-100 Insulin] 300 UNITS/3 ML insulin pen 80 units Sub-Q BID RF: 0 oxybutynin chloride [Ditropan XL] 15 MG tablet extended release 24hr 15 mg PO DAILY RF: 0 insulin aspart U-100 [Novolog U-100 Insulin aspart] 100 UNITS/ML solution 25 - 50 units Sub-Q AC RF: 0 potassium chloride [Klor-Con M10] 10 MEQ tablet,ER particles/crystals 20 meq PO DAILY RF: 0 venlafaxine 75 MG capsule,extended release 24hr 75 mg PO DAILY RF: 0 acetaminophen 325 MG tablet 650 mg PO Q4H PRNRF: 0 hydroxyzine HCl 50 MG tablet 50 mg PO QID PRNRF: 0 dextran 70-hypromellose [Natural Balance Tears] 15 ML drops 1 drp OU TID PRNRF: 0 amlodipine 5 MG tablet 5 mg PO DAILY RF: 0 nortriptyline 25 MG capsule 25 mg PO HS RF: 0 carbamazepine [Tegretol] 200 mg Tablet 100 mg PO BID RF: 0 metoprolol succinate 25 mg Tablet Extended Release 24 Hr 25 mg PO DAILY RF: 0 melatonin 10 mg Capsule 10 mg PO .QHS RF: 0 fentanyl [Duragesic] 75 mcg/hr Patch 72 Hour 75 mcg Transdermal Q72H Qty: 10 RF: 0 amoxicillin-pot clavulanate 875-125 mg Tablet 1 tab PO BID Qty: 14 RF: 0 lisinopril 5 MG tablet 20 mg PO HS Qty: 0 RF: 0 oxycodone 10 MG tablet 10 mg PO Q4H PRN PRNQty: 40 RF: 0 Medical Decision Making [facility] Narrative Medical decision making narrative: Patient arrived here altered but awake. Blood pressure and heart rate are normal. He is not febrile here. Saturations are little low but he is morbidly obese and snoring. Lungs actually sound relatively clear with some scattered rhonchi. Will get IV established and draw labs including blood cultures. Straight cath urine and portable chest x-ray ordered. Blood pressures have periodically been soft but systolic has never been below 90. Lactic acid is less than 1. CBC still pending. Chemistry significant for acute kidney injury with creatinine back up to 3.8 and potassium 6.2 morning. Amp of D50, 10 units Regular Insulin, 1 amp calcium gluconate all ordered to help bring potassium down. We will switch over from LR to saline once the bolus is in. Zosyn and vancomycin ordered for antibiotics. Lab unable to obtain blood cultures. Urinalysis negative this morning. Chest x-ray per my review negative. No definitive source for his fever and altered mental status. He is not complaining of headache. His abdomen appears to be benign. No obvious cellulitis or skin structure infection. Case with hospitalist, Dr. Bravo. Patient to be admitted to the ICU for further evaluation and management. Medical Records Medical records reviewed: Yes I reviewed the patient's medical records. Lab Data Lab results reviewed: Yes I reviewed the patient's lab results. ECG Data Attestation: I personally reviewed and interpreted this ECG (s) as follows: Prior ECG tracings: not available for review Interpretation: Sinus rhythm at a rate of 81 with normal axis and intervals. No acute ST changes. No evidence of hyperkalemia changes. HPI - General Adult General Mode of arrival: EMS . Date/Time Provider Initiated Documentation: 11/09/17 02:12 . Limitations to Documentation: altered mental status . Information obtained by: RN/MD and old records reviewed . HPI Narrative: Patient brought in by EMS from [facility] for evaluation of altered mental status and fever. Patient recently discharged from [facility] after an admission for sepsis. Currently on Augmentin twice a day. Review of the previous records suggest he was being treated for enterococcus UTI and sepsis. Per nurse at [facility] he spiked a fever tonight with rigors. He has become altered. Report of transient hypotension but none for EMS during transport. Patient arrives awake and following simple commands but not coherent otherwise. Related Data Home Medications Medication Instructions Recorded Confirmed folic acid 1 mg PO DAILY #90 tab-cap 05/01/12 11/09/17 lancets [FreeStyle Lancets] ea 05/01/12 11/09/17 levothyroxine 50 mcg PO DAILY #90 tab-cap 05/01/12 11/09/17 omeprazole 20 mg PO DAILY #90 tab-cap 05/01/12 11/09/17 risperidone [Risperdal] 3 mg PO HS #90 tab-cap 05/01/12 11/09/17 furosemide 40 mg PO QAM #7 tab-cap 05/14/12 11/09/17 blood sugar diagnostic [FreeStyle #100 strip 05/29/12 11/09/17 Lite Strips] omega-3 acid ethyl esters [Lovaza] 1 gm PO BID #180 cap 06/11/12 11/09/17 cyanocobalamin (vitamin B-12) 1,000 mcg PO DAILY #90 tab 08/07/12 11/09/17 [Vitamin B-12] pen needle, diabetic [Pen Needle] #100 ea 06/10/13 11/09/17 ergocalciferol (vitamin D2) 50,000 units PO DIRECTED NS 04/21/14 11/09/17 [Drisdol] acetaminophen 1,000 mg PO BID 10/19/15 11/09/17 carboxymethylcellulose-glycern 1 drp OPHTHALMIC BID 10/19/15 11/09/17 [Refresh Optive] gabapentin 800 mg PO TID 10/19/15 11/09/17 bsih-dtvbny-ivwaaonk-D3-C-Mn 1 tab PO TID 10/19/15 11/09/17 [Wojlqngdcre-Cixvah-S0 (C-elton)] insulin glargine [Lantus Solostar 80 units SUB-Q BID 10/19/15 11/09/17 U-100 Insulin] sertraline 50 mg PO 2000 10/19/15 11/09/17 thymol-chlorophyllin [Chlorophyll] 3 mg PO TID 10/19/15 11/09/17 insulin aspart U-100 [Novolog 25 - 50 units SUB-Q AC 10/20/15 11/09/17 U-100 Insulin aspart] oxybutynin chloride [Ditropan XL] 15 mg PO DAILY 10/20/15 11/09/17 venlafaxine 75 mg PO DAILY 01/08/16 11/09/17 acetaminophen 650 mg PO Q4H PRN 07/08/17 11/09/17 amlodipine 5 mg PO DAILY 07/08/17 11/09/17 dextran 70-hypromellose [Natural 1 drp OU TID PRN 07/08/17 11/09/17 Balance Tears] hydroxyzine HCl 50 mg PO QID PRN 07/08/17 11/09/17 nortriptyline 25 mg PO HS 07/08/17 11/09/17 carbamazepine [Tegretol] 100 mg PO BID 10/27/17 11/09/17 melatonin 10 mg PO .QHS 10/27/17 11/09/17 metoprolol succinate 25 mg PO DAILY 09/03/18 09/16/18 Previous Rx's Medication Instructions Recorded prednisone 20 mg PO DAILY #30 tab 06/24/13 potassium chloride [Klor-Con M10] 20 meq PO DAILY tabcr 10/26/15 amoxicillin-pot clavulanate 1 tab PO BID #14 tab 11/05/17 fentanyl [Duragesic] 75 mcg TRANSDERMAL Q72H #10 ea 11/05/17 lisinopril 20 mg PO HS #0 tab 11/05/17 oxycodone 10 mg PO Q4H PRN PRN #40 tab 11/05/17 Allergies Allergy/AdvReac Type Severity Reaction Status Date / Time No Known Allergies Allergy Unverified 11/09/17 03:12 General Stated Complaint: Fever YVES: 3 Review of Systems Review of Systems Unobtainable due to mental status Exam Const General: no acute distress Nutritional Appearance: obese morbidly obese Orientation: awake, oriented to person and confused HENMT Head: normocephalic and atraumatic Mouth: mucous membranes dry Eyes Conjunctivae: conjunctivae normal Pupils: PERRL Resp Effort & Inspection: normal respiratory effort Auscultation: rhonchi (scattered) Cardio Rate: regular rate Rhythm: regular rhythm Heart Sounds: S1 normal and S2 normal Pulses: normal peripheral pulses GI Inspection: non-distended Palpation: soft, no guarding and nontender Skin General skin exam: no erythema and other (venous stasis changes of LE) Rashes: no rashes Neuro General: awake, oriented Patient Orientation: Person and confused Extrem General: edema (generalized body edema) Course Vital Signs Temperature 98.6 F 11/09/17 02:12 Pulse 77 11/09/17 02:12 Respiratory Rate 11/09/17 02:12 Blood Pressure 112/60 11/09/17 02:12 Temperature 98.6 F 11/09/17 02:12 Pulse 77 11/09/17 02:12 Respiratory Rate 11/09/17 02:12 Blood Pressure 112/60 11/09/17 02:12 Critical Care Time Critical Care Time: Yes Total Critical Care Time: 45 Attestation: fever, altered mental status, hyperkalemia
[2017-11-09 02:59] LABS: Lactate-non-spesis 0.9 mmol/L (0.6-1.4)
[2017-11-09 03:22] LABS: ALT 18 U/L (12-78); AST 13 U/L (15-37); Albumin 2.2 g/dL (3.4-5.0); Alkaline Phosphatase 181 U/L (46-116); Anion Gap 9.1 mmol/L (3-11); BUN 66 mg/dL (7-18); Bilirubin, Total 0.1 mg/dL (0.2-1.0); CO2 20.9 mmol/L (21.0-32.0); Calcium 7.7 mg/dL (8.5-10.1); Chloride 112 mmol/L (98-107); Estimated GFR 16.65 (mL/min/1.73m2); Glucose 121 mg/dL (70-100); Sodium 142 mmol/L (136-145)
[2017-11-09 03:34] LABS: Abs Immature Grans 0.13 k/cumm (0.0-0.09); HCT 27.6 % (40.0-50.0); HGB 7.4 g/dL (13.5-17.5); Mean Corp. HGB Concentration 26.8 g/dL (32.0-36.0); Mean Corpuscular Hemoglobin 19.2 pg (27.0-33.0); Mean Corpuscular Volume 71.7 fL (80-95); Mean Platelet Volume 11.4 fL (8.0-11.0); RBC 3.85 m/cumm (4.50-6.00); RBC Distribution Width 21.2 % (11.8-14.1); White Blood Cell Count 13.68 k/cumm (4.4-10.8)
[2017-11-09 03:44] LABS: Bilirubin Negative (Negative); Blood Trace-intact (Negative); Clarity Sl Cloudy; Glucose Negative (Negative); Ketones Trace mg/dL (Negative); Leukocyte Esterase Negative (Negative); Nitrite Negative (Negative); Specific Gravity 1.025 (1.005-1.025); Urobilinogen 0.2 EU/dL (Up TO 0.2); pH 5.5 (5-8)
[2017-11-09 03:55] LABS: Bacteria Few HPF (Negative); C & S Indicated? No; Casts Negative LPF (Negative); Crystals Moderate Amorphous HPF (Negative); Epithelial Cells Rare HPF (Negative); Mucus Heavy (Negative)
[2017-11-09 04:07] LABS: CREATININE 3.76 mg/dL (0.70-1.30); Potassium 6.2 mmol/L (3.5-5.1)
[2017-11-09] MEDS: Calcium Gluconate 4.65 MEQ/10 ML VIAL 4.65 MG IVP ×2 (04:26→13:51)
[2017-11-09] MEDS: Dextrose 50%-Water 25 GM/50 ML SYR IVP (04:29)
[2017-11-09] MEDS: Insulin REGULAR-Human 100 UNITS/ML UNIT 10 UNITS IV (04:29)
[2017-11-09 04:41] LABS: Absolute Eosinophil Count 0.27 k/cumm (0.0-0.7); Absolute Lymphocyte Count 1.37 k/cumm (1.2-3.4); Absolute Monocyte Count 0.27 k/cumm (0.11-0.7); Absolute Neutrophil Count 11.76 k/cumm (1.2-6.7); Anisocytosis 1+; Basophilic Stippling Present; Hypochromasia 2+; Microcytosis 1+
[2017-11-09 04:42] LABS: Poikilocytes 1+; Polychromasia Present
[2017-11-09] MEDS: PIPERACILLIN/TAZO 4.5 GM in Normal Saline 100 ML IVPB (04:44)
[2017-11-09] MEDS: Normal Saline 1,000 ML 100 ML IV (04:44)
[2017-11-09] MEDS: Lactated Ringers 1,000 ML 1000 ML IV (04:45)
--- NOTE | 2017-11-09 05:22 | DI.VRAD_ITS ---
EXAM: XR Chest, 1 View EXAM DATE/TIME: 11/09/2017 3:41 AM CLINICAL HISTORY: 57 years old, male; Signs and symptoms; Other: Fever altered mental status TECHNIQUE: XR of the chest, 1 view. COMPARISON: CR - CHEST 2 VIEWS PA,LAT 05/23/2016 12:33 PM FINDINGS: Lungs: Unremarkable. No consolidation. Pleural space: Unremarkable. No pleural effusion. No pneumothorax. Heart/Mediastinum: There is mild cardiomegaly. Bones/joints: Tapering of the distal ends of each clavicle are again noted. This may indicate rheumatoid arthritic involvement bilaterally or could be postsurgical. IMPRESSION: No acute pulmonary disease or acute thoracic findings are detected. Dictated and Authenticated by: Sunil Romero MD. Ordering:MARI AL MD
[2017-11-09] MEDS: VANCOMYCIN 2,000 MG in Normal Saline 500 ML 250 MG IVPB (05:58)
--- NOTE | 2017-11-09 06:44 | W.PM.HP.N ---
Date of service: 11/09/17 Time of Service: 06:45 Assessment and Plan (1) Sepsis: Current visit: No Status: Acute Mr. Corley was hospitalized recently, with evidence of enterococcus faecalis UTI as well as blood cultures positive for group C strep as etiology. Patient's sepsis originally resolved with broad spectrum antibiotics, then narrowed to renaly dosed Ampicillin for 2 days. However, the patient's condition worsened and he was ultimately broadened again, with CXR evidence for potential infiltrate as suspected source that was not covered by Ampicillin. Vancomycin and Zosyn were maintained for additional pulmonary coverage (HCAP as patient is a chronic assisted resident). Mr. Corley was changed to oral Augmentin on November 04, and discharged from the hospital on November 05. At that point he had had 5 days of interrupted broad spectrum antibiotic therapy. Currently the patient does not have a clear source for infection, with a negative urinalysis and normal appearing CXR. Blood Cultures ordered but unfortunatley will be drawn after he has already received antibiotics by the ED. Will likely require broad spectrum coverage again, potentially for inadequate coverage and duration of therapy from last hospitalization vs. new infection. Monitor cultures, supportive care, and monitor closely. Given likely adrenal insufficiency due to chronic steroid use may benefit from stress dosed steroids as well. The patient will benefit from admission to the ICU. (2) JESUS (acute kidney injury): Current visit: No Status: Acute Evidence of acute kidney injury superimposed on CKD. This is in the setting of acute illness and sepsis. The patient had a similar episode during his last hospitalization that responded to IVF resuscitation, PO Kayexalate, and ultimately IV Lasix. Current creatinine in the 3's, with baseline of approximately 1.5-2.5. Monitor renal function carefully, avoid nephrotoxins, and renaly dose medications when appropriate. (3) Diabetes mellitus type 2, controlled: Current visit: No Status: Chronic Continue basal insulin, sliding scale coverage, and ADA diet. Patient's blood sugars were grossly elevated during his last hospital stay in the setting of both infection as well as stress dose steroid use. (4) Anxiety: Current visit: No Status: Chronic Continue home regimen of SNRI therapy. (5) Hypertension: Current visit: No Status: Chronic Currently hypotensive in the setting of sepsis. Continue aggressive IV fluids, and hold home antihypertensive regimen. Please note that the patient experienced significant hypertension last visit once recovered from his sepsis. (6) Chronic pain: Current visit: No Status: Chronic Continue home regimen but monitor mental status and blood pressure carefully. (7) Hypothyroidism: Current visit: No Status: Chronic Continue replacement therapy. (8) CAD (coronary artery disease): Current visit: No Status: Chronic Appears quiescent. (9) Rheumatoid arthritis: Current visit: No Status: Chronic Maintained chronically on Humira as an outpatient, as well as daily prednisone therapy. Will initiate stress dose steroids given her current sepsis and hypotension. (10) Crohns disease: Current visit: No Status: Chronic Status post total colectomy, with ostomy in place that appears to be functioning well. (11) DVT prophylaxis: Current visit: No Status: Acute Subcutaneous heparin. History of Present Illness Chief Complaint: Fever Narrative: 57 year old manwith past medical history significant for RA on chronic steroid therapy, CKD, DM, and recent hospitalization for sepsis presents to [facility] emergency department with reported fever and change in mental status. Mr. Corley was recently hospitalized here at [facility] with sepsis. He was found to have Group C strep bacteremia and E. Fecalis UTI at that time, and due to failure with ampicillin was maintained on broad-spectrum antibiotic therapy through his hospital course. There was also note of a potential pulmonary infiltrate at that time as potential other source for his infection. He was discharged back to his nursing facility, where he is a longtime resident, 5 days ago to complete his antibiotic course with Augmentin for an additional 7 days. The patient was apparently found to have fevers and Rigors today at the nursing facility, as well as evidence of an altered mental status. He was sent in by emergency medical services for further evaluation. Workup in the emergency department was significant for mild hypotension in patient who is otherwise significantly hypertensive, mild leukocytosis, continued significant anemia, and acute kidney injury with hyperkalemia. Unfortunately no source for infection was found. Antibiotic therapy was initiated in the emergency department, but blood cultures were unable to be drawn at that time. The patient was referred for admission for further evaluation and treatment. Review of Systems Review of Systems Unable to obtain secondary to patient's altered mental status. Meds Allergies Allergy/AdvReac Type Severity Reaction Status Date / Time No Known Allergies Allergy Unverified 11/09/17 03:12 Exam Const General: no acute distress Nutritional Appearance: obese morbidly obese Orientation: not oriented x3 and confused HENMT Head: normocephalic and atraumatic Mouth: mucous membranes dry Resp Effort & Inspection: normal respiratory effort Auscultation: rhonchi (scattered) Cardio Rate: regular rate Heart Sounds: S1 normal and S2 normal GI Inspection: normal to inspection (Obese in contour) and non-distended Palpation: soft, no guarding and nontender Skin General skin exam: no erythema and other (venous stasis changes of LE) Rashes: no rashes Neuro General: not awake, oriented Patient Orientation: Person and confused Extrem General: edema (generalized body edema) Laterality: bilateral Results Imaging Chest x-ray: report reviewed Imaging Studies: EXAM: XR Chest, 1 View EXAM DATE/TIME: 11/09/2017 3:41 AM IMPRESSION: No acute pulmonary disease or acute thoracic findings are detected. Labs : 11/09/17 12:40 11/09/17 12:40 Laboratory Results - last 24 hr 11/09/17 11/09/17 11/09/17 02:53 02:53 03:11 WBC RBC Hgb Hct MCV MCH MCHC RDW Plt Count MPV Immature Gran % Neutrophils % Lymphocytes % Monocytes % Eosinophils % Basophils % Absolute Neutrophils Absolute Lymphocytes Absolute Monocytes Absolute Eosinophils Absolute Basophils Differential Comment RBC Morphology Polychromasia Hypochromasia Poikilocytosis Basophilic Stippling Anisocytosis Microcytosis Sodium 142 Potassium 6.2 H* Chloride 112 H Carbon Dioxide 20.9 L Anion Gap 9.1 BUN 66 H Creatinine 3.76 H* Estimated GFR/1.73 m2 16.65 Glucose 121 H Lactate 0.9 Calcium 7.7 L Total Bilirubin 0.1 L AST 13 L ALT 18 Alkaline Phosphatase 181 H Total Protein 6.0 L Albumin 2.2 L Urine Color Yellow Urine Clarity Sl cloudy Urine pH 5.5 Ur Specific [place] 1.025 Urine Protein 30 H Urine Ketones Trace H Urine Blood Trace-intact H Urine Nitrite Negative Urine Bilirubin Negative Urine Urobilinogen 0.2 Ur Leukocyte Esterase Negative Urine RBC 3-5 H Urine WBC 3-5 Ur Epithelial Cells Rare Urine Crystals Moderate amorphous Urine Bacteria Few Urine Casts Negative Urine Mucus Heavy Ur Culture Indicated? No Urine Glucose Negative 11/09/17 03:25 WBC 13.68 H RBC 3.85 L Hgb 7.4 L Hct 27.6 L MCV 71.7 L MCH 19.2 L MCHC 26.8 L RDW 21.2 H Plt Count MPV 11.4 H Immature Gran % 0.0 Neutrophils % 86.0 Lymphocytes % 10.0 Monocytes % 2.0 Eosinophils % 2.0 Basophils % 0.0 Absolute Neutrophils 11.76 H Absolute Lymphocytes 1.37 Absolute Monocytes 0.27 Absolute Eosinophils 0.27 Absolute Basophils 0.00 Differential Comment RBC Morphology See below Polychromasia Present Hypochromasia 2+ Poikilocytosis 1+ Basophilic Stippling Present Anisocytosis 1+ Microcytosis 1+ Sodium Potassium Chloride Carbon Dioxide Anion Gap BUN Creatinine Estimated GFR/1.73 m2 Glucose Lactate Calcium Total Bilirubin AST ALT Alkaline Phosphatase Total Protein Albumin Urine Color Urine Clarity Urine pH Ur Specific [place] Urine Protein Urine Ketones Urine Blood Urine Nitrite Urine Bilirubin Urine Urobilinogen Ur Leukocyte Esterase Urine RBC Urine WBC Ur Epithelial Cells Urine Crystals Urine Bacteria Urine Casts Urine Mucus Ur Culture Indicated? Urine Glucose
--- NOTE | 2017-11-09 07:58 | PDOC.CMIN ---
Care Management Initial Assess REASON FOR HOSPITALIZATION:: Fever, AMS, JESUS, Hyperkalemia PAST MEDICAL HISTORY/PAST SURGICAL HISTORY:: recent hospitalization for sepsis; Group C strep bacteremia and E. Fecalis UTI, RA on chronic steroid therapy, CKD, , bipolar, anxiety, arthrititis, DM, HTN, CAD. Surgical hx: arthroplasty, ORIF distal humerus fracture PREVIOUS FUNCTIONAL STATUS/SOCIAL/FAMILY SUPPORTS:: Brendan is a fdc resident at the [facility] facility in [place] and he requires assistance with all of his ADLs and utilizes a walker for ambulation. Patient has a sister, Lian who lives in [facility] and they have limited contact via phone every couple of weeks. Doee enjoys reading and watching TV. CURRENT FUNCTIONAL STATUS:: Brendan is being prepped for intubation. CM spoke with Brendan's sister, Lian Hardy (P#[phone]) and notified Dr. Horowitz; Corporate Sales Manager at the [facility] who completed Brendan's COLST with him. Brendan is a full code and this will be respected. Per RNKimberly, Brendan will be intubated to protect his airway as his BPs are low and he is presumed septic. ADVANCE DIRECTIVES:: COLST on file. Has patient been provided with information about the portal?: No Did the patient sign up for the portal?: No CODE STATUS:: Full Code INSURANCE COVERAGE / FINANCIAL ISSUES:: Medicaid. Medicare CURRENT HOME/COMMUNITY SERVICES/EQUIPMENT:: Brendan is a resident at the [facility]-the facility manages his service and equipment needs. PRIMARY CARE PHYSICIAN:: Anne Horowitz DO: Corporate Sales Manager at the [facility] POTENTIAL DISCHARGE NEEDS:: Coordination of return to [facility]. PATIENT/FAMILY EDUCATION NEEDS:: Review of instructions. ANTICIPATED BARRIERS TO DISCHARGE:: IV ABX course-dependent on duration and frequency TRANSPORTATION:: W/C van PLAN:: Brendan will be intubated and continue to be treated in the ICU, CM will continue to follow-monitor clincial status-and support Brendan and his family as needed. Readmission - Within the Past 30 Days Yes or No: Y - Date of First Admission Date of 1st Admission: 10/27/17 - Date of this Admission Date of Admission: 11/09/17 This admission was: Through ED - Office Visit Since 1st Admission Have you seen your PCP in the office since discharge?: Yes Date of PCP Appointment: Corporate Sales Manager - Speicalist Appointments Have you seen any other specialist since your 1st Admission?: No - I. Interview patient and/or Family Difficulty reaching your doctor or getting an office appt?: No Have you had trouble purchasing/ or taking medication?: No Have you had trouble with getting meals at home?: No Did you call your physician beore you came to the ED?: Yes Did your physician tell you to come in?: Yes - If the patient had a VNA ordered Did the patient have a VNA order?: No - If the patient came from Ext. Facility Call the Facility to discuss the patient's admission: Per Dr. Lockwood's ED note: HPI Narrative: Patient brought in by EMS from [facility] for evaluation of altered mental status and fever. Patient recently discharged from [facility] after an admission for sepsis. Currently on Augmentin twice a day. Review of the previous records suggest he was being treated for enterococcus UTI and sepsis. Per nurse at [facility] he spiked a fever tonight with rigors. He has become altered. Report of transient hypotension but none for EMS during transport. Patient arrives awake and following simple commands but not coherent otherwise. - Ask the Care Team Members: What do you think caused the patient to be readmitted: Fevers and Rigors at the [facility], as well as evidence of an altered mental status resulted in [id number]-wrvkqpgcrgor source of infection at this time-will likely require broad spectrum coverage again, potentially for inadequate coverage and duration of therapy from last hospitalization vs. new infection. Monitor cultures, supportive care, and monitor closely. - ED visits How many ED visits in the past 12 months: 4 - Assessment for Readmission Summary of readmission circumstances, based upon interviews: Brendan was re-admitted in serious condition due to re-currence of cjhrcpnpo-yf-aoy infection. He will be treated and evaluated further to inform treatment recommendations. 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 He is well known to [facility] and though complex, his medical needs are managed well by Dr. Horowitz.
--- NOTE | 2017-11-09 08:13 | INITIAL_ITS ---
Care Management Initial Assess REASON FOR HOSPITALIZATION:: Fever, AMS, JESUS, Hyperkalemia PAST MEDICAL HISTORY/PAST SURGICAL HISTORY:: recent hospitalization for sepsis; Group C strep bacteremia and E. Fecalis UTI, RA on chronic steroid therapy, CKD , , bipolar, anxiety, arthrititis, DM, HTN, CAD. 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 Patient has a sister, Lian who lives in [facility] and they have limited contact via phone every couple of weeks. Doee enjoys reading and watching TV. CURRENT FUNCTIONAL STATUS:: Brendan is being prepped for intubation. CM spoke with Brendan's sister, Lian Hardy (P#[phone]) and notified Dr. Horowitz; Strip Winder at the [facility] who completed Brendan's COLST with him. Brendan is a full code and this will be respected. Per RNKimberly, Brendan will be intubated to protect his airway as his BPs are low and he is presumed septic. ADVANCE DIRECTIVES:: COLST on file. Has patient been provided with information about the portal?: No Did the patient sign up for the portal?: No CODE STATUS:: Full Code INSURANCE COVERAGE / FINANCIAL ISSUES:: Medicaid. Medicare CURRENT HOME/COMMUNITY SERVICES/EQUIPMENT:: Brendan is a resident at the [facility]-the facility manages his service and equipment needs. PRIMARY CARE PHYSICIAN:: Anne Horowitz DO: Strip Winder at the [facility] POTENTIAL DISCHARGE NEEDS:: Coordination of return to [facility]. PATIENT/FAMILY EDUCATION NEEDS:: Review of instructions. ANTICIPATED BARRIERS TO DISCHARGE:: IV ABX course-dependent on duration and frequency TRANSPORTATION:: W/C van PLAN:: Brendan will be intubated and continue to be treated in the ICU, CM will continue to follow-monitor clincial status-and support Brendan and his family as needed. Readmission - Within the Past 30 Days Yes or No: Y - Date of First Admission Date of 1st Admission: 10/27/17 - Date of this Admission Date of Admission: 11/09/17 This admission was: Through ED - Office Visit Since 1st Admission Have you seen your PCP in the office since discharge?: Yes Date of PCP Appointment: Strip Winder - Speicalist Appointments Have you seen any other specialist since your 1st Admission?: No - I. Interview patient and/or Family Difficulty reaching your doctor or getting an office appt?: No Have you had trouble purchasing/ or taking medication?: No Have you had trouble with getting meals at home?: No Did you call your physician beore you came to the ED?: Yes Did your physician tell you to come in?: Yes - If the patient had a VNA ordered Did the patient have a VNA order?: No - If the patient came from Ext. Facility Call the Facility to discuss the patient's admission: Per Dr. Lockwood's ED note: HPI Narrative: Patient brought in by EMS from [facility] for evaluation of altered mental status and fever. Patient recently discharged from [facility] after an admission for sepsis. Currently on Augmentin twice a day. Review of the previous records suggest he was being treated for enterococcus UTI and sepsis. Per nurse at [facility] he spiked a fever tonight with rigors. He has become altered. Report of transient hypotension but none for EMS during transport. Patient arrives awake and following simple commands but not coherent otherwise. - Ask the Care Team Members: What do you think caused the patient to be readmitted: Fevers and Rigors at the [facility], as well as evidence of an altered mental status resulted in [id number] source of infection at this time-will likely require broad spectrum coverage again, potentially for inadequate coverage and duration of therapy from last hospitalization vs. new infection. Monitor cultures, supportive care, and monitor closely. - ED visits How many ED visits in the past 12 months: 4 - Assessment for Readmission Summary of readmission circumstances, based upon interviews: Brendan was re-admitted in serious condition due to re-currence of infection-vs- new infection. He will be treated and evaluated further to inform treatment recommendations. He is a chronically ill man who resides usp at the [facility] in [place], [place]. He is well known to [facility] and though complex, his medical needs are managed well by Dr. Horowitz.
[2017-11-09] MEDS: Hydrocortisone SOD SUC. 100 MG VIAL 50 MG IVP (09:20)
[2017-11-09] MEDS: Normal Saline 1,000 ML 1000 ML IV (10:01)
--- NOTE | 2017-11-09 10:09 | NUR.NOTE ---
Nursing Note: 0945: Increased work of breathing with persistant decrease in BP. Generalized edema. Faint expiratory wheezing. Dr. Bravo made aware. 500 ML NSS fluid bolus given. Bladder scan done/34 ML. FC placed. Approximately [address] Fisher in. IVF of NS at 1000 ML/HR started. Midline placement pending. Blood cultures obtained by lab. 10:45. Second IV access placed/# 18 right AC. Decreased O2 sats with irregular HR. SBP 68. 100% NRB placed. Levophed started at 15 mcg/min (0.106/KG/Min). Central line placement in progress.
--- NOTE | 2017-11-09 10:54 | NUR.NOTE ---
Nursing Note: 1055: RT at bedside. Nasal trumped placed.
[2017-11-09] MEDS: Vasopressin 20 UNITS/ML VIAL (12:07)
--- NOTE | 2017-11-09 12:38 | DI.RAD_ITS ---
SYMPTOM/DIAGNOSIS: ACUTE RESPIRATORY FAILURE, S/P CODE BLUE PORTABLE AP CHEST: Comparison is made with 11/09/17 from earlier in the day. There is poor inspiration and elevation of the hemidiaphragms. Overlying monitoring equipment is seen. The heart is enlarged. There is prominence of the pulmonary vasculature. There has been interval placement of an endotracheal tube which is approximately 4 cm. above the liliana. There is a left subclavian central venous catheter, the tip of which is in the superior vena cava. There does appear to be right pleural effusion. A left pleural effusion cannot be excluded. Bilateral interstitial infiltrates are seen. This may represent interstitial edema or atelectasis. IMPRESSION: Cardiomegaly. Interstitial lung disease and small pleural effusions. Congestive heart failure cannot be excluded. Endotracheal tube and central venous catheter in good position.
[2017-11-09 12:52] LABS: Abs Immature Grans 0.83 k/cumm (0.0-0.09); Mean Corp. HGB Concentration 26.7 g/dL (32.0-36.0); Mean Corpuscular Hemoglobin 19.6 pg (27.0-33.0); Mean Corpuscular Volume 73.3 fL (80-95); Mean Platelet Volume 10.4 fL (8.0-11.0); Platelet Count 462 x1000/uL (130-400); RBC 4.09 m/cumm (4.50-6.00); RBC Distribution Width 21.6 % (11.8-14.1)
[2017-11-09 13:04] LABS: Absolute Neutrophil Count 20.34 k/cumm (1.2-6.7)
[2017-11-09 13:05] LABS: Absolute Basophil Count 0.23 k/cumm (0.0-0.2); Absolute Eosinophil Count 0.45 k/cumm (0.0-0.7); Absolute Lymphocyte Count 0.23 k/cumm (1.2-3.4); Absolute Monocyte Count 0.68 k/cumm (0.11-0.7); Anisocytosis 1+; Basophilic Stippling Present; Diff Comment Manual Differential; Hypochromasia 2+; Nucleated RBC 1 /100WBC
[2017-11-09 13:06] LABS: Microcytosis 1+; Poikilocytes 1+; Schistocytes 1+
[2017-11-09 13:07] LABS: HCO3 15 mmol/L (22-28); pO2 88 mmHg (83-108); sO2 97 % (94-98); tCO2 16 mmol/L (22-29)
[2017-11-09 13:08] LABS: ALT 21 U/L (12-78); AST 21 U/L (15-37); Albumin 2.1 g/dL (3.4-5.0); Alkaline Phosphatase 206 U/L (46-116); Anion Gap 9.9 mmol/L (3-11); BUN 63 mg/dL (7-18); Bilirubin, Total 0.3 mg/dL (0.2-1.0); CO2 18.1 mmol/L (21.0-32.0); Calcium 7.5 mg/dL (8.5-10.1); Chloride 114 mmol/L (98-107); Estimated GFR 14.53 (mL/min/1.73m2); Glucose 173 mg/dL (70-100); Sodium 142 mmol/L (136-145); Total Protein 6.1 g/dL (6.4-8.2); Troponin I 0.05 ng/mL (0.00-0.06)
[2017-11-09 13:17] LABS: Site Right Radial; pCO2 62 mmHg (34-47)
[2017-11-09 13:18] LABS: FIO2L CANNULA L
[2017-11-09 13:20] LABS: CREATININE 4.23 mg/dL (0.70-1.30)
[2017-11-09 13:21] LABS: Potassium 6.7 mmol/L (3.5-5.1)
--- NOTE | 2017-11-09 13:32 | DI.VRAD_ITS ---
EXAM: XR Chest, 1 View CLINICAL HISTORY: 57 years old, male; Condition or disease; Other: Acute respiratory failure; Patient HX: Acute respiratory failure, S/P code blue TECHNIQUE: Frontal view of the chest. COMPARISON: SC - XR PORTABLE CHEST AP 11/09/2017 3:38 AM FINDINGS: Endotracheal tube in good position above the liliana. Left sided central catheter with tip projecting over the mid superior vena cava. Cardiomegaly. Small right pleural effusion. Left costophrenic angle somewhat obscured. No significant focal consolidations. Mild diffuse interstitial lung disease most likely representing scarring. IMPRESSION: Endotracheal tube and central catheter in good position. Cardiomegaly. Interstitial lung disease and probable small bilateral pleural effusions. Dictated and Authenticated by: Marko Hu MD. Ordering:[facility] RUTH FELIX MD
--- NOTE | 2017-11-09 13:41 | W.PM.DS.N ---
DS: Diagnosis Discharge Diagnosis (1) Sepsis: Start date: 11/09/17 Start time: 02:00 Status: Acute Asessment and Plan: Blood and urine cultures were obtained and are pending at this time. Patient was treated with IV vancomycin, IV Zosyn, IV meropenem. Patient is being transferred to [facility] to the critical care team of Dr. Jacome (2) JESUS (acute kidney injury): Status: Acute Asessment and Plan: Patient with worsening renal failure and hyperkalemia. Although patient is making a small amount of urine. After resuscitation he had 100 mL in his Downing catheter. Patient may need to be dialyzed because of the recurrent hyperkalemia. Patient is being transferred to the critical care unit at [facility] where the patient could be considered for CVVH (3) Diabetes mellitus type 2, controlled: Status: Chronic Asessment and Plan: Patient will probably require an insulin drip all intubated and being treated for sepsis. (4) Anxiety: Status: Chronic (5) Hypertension: Status: Chronic Asessment and Plan: All the patient's blood pressure medications were withheld because of his presentation with sepsis and shock (6) Chronic pain: Status: Chronic (7) Hypothyroidism: Status: Chronic Asessment and Plan: Patient will require parenteral levothyroxine until he is able to take in enteral form of this (8) CAD (coronary artery disease): Status: Chronic Asessment and Plan: Patient showed no signs of acute coronary ischemia either by EKG or troponin levels (9) Rheumatoid arthritis: Status: Chronic Asessment and Plan: Patient is been on chronic prednisone therapy 20 mg daily and Humira on an outpatient basis. While hospitalized here he was given stress doses of hydrocortisone 50 mg IV every 6 hours and during the acute cardiopulmonary resuscitation was given additional 100 mg of hydrocortisone (10) Crohns disease: Status: Chronic Asessment and Plan: Patient is status post colectomy and has an ostomy. At the time of discharge his stool was light brown and showed no evidence of acute GI bleeding although he has a chronic anemia (11) DVT prophylaxis: Status: Acute Asessment and Plan: Because of his anemia and presentation with hypotension patient was not treated with heparin or enoxaparin but was placed on pneumatic compression calf cuffs (12) Cardiopulmonary arrest with successful resuscitation: Start date: 11/09/17 Start time: 12:00 Status: Acute Asessment and Plan: Status post successful cardiopulmonary resuscitation. The exact etiology of his bradycardia dysrhythmia and subsequent asystole and PEA are undetermined at this time but may be secondary to hyperkalemia from his acute on chronic renal failure however consideration should be given for possible pulmonary embolus given his chronic bilateral leg edema. It is unlikely that his cardiopulmonary arrest was entirely due to his sepsis Discharge Plan Disposition Patient Disposition: [facility] Condition: Critical Discharge Details Reason For Visit: FEVER,ALTERED MS, JESUS, HYPERKALEMIA, CP ARREST Admit Date/Time: 11/09/17 04:21 Admit Provider: Ariel Bravo Attending Provider: Ariel Bravo Primary Care Provider: Anne Horowitz [facility] Course Hospital Course: Patient was admitted to the hospital from a local alf with altered mental status changes associated with fevers and rigors. Patient was recently hospitalized at [facility] for group C strep sepsis and enterococcus UTI for which he been treated with vancomycin and Zosyn. Patient had been discharged to a alf on Augmentin. Upon arrival to the emergency room he was awake but not coherent and he was mildly hypotensive with SBP in the 90's . Evaluation in the emergency room included EKG, chest x-ray, routine labs including CMP, CBC, lactic acid, urinalysis per straight cath. He was found to have acute on chronic renal failure with a creatinine up to 3.8 and a potassium of 6.2. CBC showed a leukocytosis of 13,000 and an anemia w/ Hb OF 7.4 gm, HCT 27%. Initial EKG showed normal sinus rhythm at a rate of 81 bpm with no acute ST changes. But nonspecific intraventricular conduction defect with an RSR prime in the septal leads. He was treated emergency room with an amp of dextrose 50%, 10 units regular insulin, 1 amp of calcium gluconate. He was given a bolus of saline 1 L and then switch to lactated Ringer's. Blood cultures were initially ordered but were not able to be obtained before starting antibiotics. Urinalysis was negative for leukocyte esterase and only had 3-5 white cells and 3-5 red cells and a few bacteria. He was started on Zosyn and vancomycin. Initial chest x-ray showed no acute infiltrates. Patient was admitted to the intensive care unit for treatment of sepsis of unknown origin Upon arrival to the intensive care unit patient proceeded to become more hypotensive dropping his systolic pressure in the 60s despite being given further IV fluid resuscitation up to 4 liters and the patient was started on Norepinephrine drip at 15 mcg/minute. Due to poor peripheral iv access, and unsuccessful attempt was made at placing a right IJ triple lumen cvp. Venous access was obtained by ultrasound guidance using an introducer needle and syringe provided in the CVP However the guidewire could not be threaded and further attempts at gaining access were unsuccessful. While attempting to place the CVP line the patient became bradycardic and his hypotension became refractory to norepinephrine thus necessitating an epinephrine drip. The bradycardia became severe enough that he required atropine and initiation of CPR. Patient's baseline rhythm deteriorated into asystole but with prolonged CPR that went on for 30 minutes and after additional doses of IV epinephrine and titration of the epinephrine drip and addition of vasopressin patient's rhythm went from asystole to PEA and finally he had a return of spontaneous circulation with a sinus rhythm in the 80s. The [employer] Mr. Lezama and Dr. Prado, general surgeon was consulted to assist in the care of the patient. Dr. Prado made an attempt at a left femoral triple-lumen CVP which was unsuccessful. She did successfully place a left subclavian CVP however these procedures were done under nonsterile conditions as he occurred during the resuscitation of the patient. Mr. Wright assisted with code management and intubated the patient successfully using a glide scope #8 endotracheal tube to a level of 25 cm at the lips. Placement of the central line and endotracheal tube are confirmed by chest x-ray. During the resuscitation for cardiac arrest bedside ultrasound was used to assess for pneumothorax and none was noted. Patient had good pleural lung sliding in all bear. Chest x-ray also showed no evidence for pneumothorax. In addition to the Zosyn and vancomycin given in the emergency room patient was given meropenem 0.5 g adjusted for his renal insufficiency. During the code resuscitation he was given additional dose of calcium gluconate and [address] Prado after attempting an unsucceful right femoral CVP then successfully placed a left subclavian triple lumen CVP and Mr. Lezama placed a right IO access in the right tibia and a right radial arterial line. All of these procedures ended up being unsterile as the patient was actively being resuscited w/ CPR which went on for 30 to 35 minutes.After ROSC the patient began to become more alert and spontaneously opening his eyes and looking at the staff and his family and following simple commands. [facility] transfer center was called in consultation was obtained with Dr. Jacome, truck service manager. After review of the case he accepted the patient in transfer. [place] [facility] [place] [facility] life flight. Home Meds and New Rx's Prescriptions: Discontinued risperidone [Risperdal] 3 MG tablet 3 mg PO HS Qty: 90 RF: 3 levothyroxine 50 MCG tablet 50 mcg PO DAILY Qty: 90 RF: 3 folic acid 1 MG tablet 1 mg PO DAILY Qty: 90 RF: 3 omeprazole 20 MG capsule,delayed release(DR/EC) 20 mg PO DAILY Qty: 90 RF: 3 lancets [FreeStyle Lancets] 1 EACH misc 1 ea Miscellaneous RF: 0 furosemide 40 MG tablet 40 mg PO QAM Qty: 7 RF: 0 blood sugar diagnostic [FreeStyle Lite Strips] 1 EACH strip 1 ea Miscellaneous TID Qty: 100 RF: 11 omega-3 acid ethyl esters [Lovaza] 1 GM capsule 1 gm PO BID Qty: 180 RF: 3 cyanocobalamin (vitamin B-12) [Vitamin B-12] 1,000 MCG tablet extended release 1,000 mcg PO DAILY Qty: 90 RF: 0 pen needle, diabetic [Pen Needle] 1 EACH needle 1 ea Miscellaneous DAILY Qty: 100 RF: 5 ergocalciferol (vitamin D2) [Drisdol] 50,000 UNIT capsule 50,000 units PO DIRECTED RF: 0 prednisone 5 MG tablet 20 mg PO DAILY Qty: 30 RF: 0 acetaminophen 500 MG tablet 1,000 mg PO BID RF: 0 gabapentin 800 MG tablet 800 mg PO TID RF: 0 sertraline 50 MG tablet 50 mg PO 2000 RF: 0 thymol-chlorophyllin [Chlorophyll] 1 EACH tablet 3 mg PO TID RF: 0 carboxymethylcellulose-glycern [Refresh Optive] 15 ML drops 1 drp Ophthalmic BID RF: 0 aper-fvhmmv-tmkfhqha-D3-C-Mn [Nczcynhudkh-Iqtnkg-S9 (C-elton)] 1 EACH capsule 1 tab PO TID RF: 0 insulin glargine [Lantus Solostar U-100 Insulin] 300 UNITS/3 ML insulin pen 80 units Sub-Q BID RF: 0 oxybutynin chloride [Ditropan XL] 15 MG tablet extended release 24hr 15 mg PO DAILY RF: 0 insulin aspart U-100 [Novolog U-100 Insulin aspart] 100 UNITS/ML solution 25 - 50 units Sub-Q AC RF: 0 potassium chloride [Klor-Con M10] 10 MEQ tablet,ER particles/crystals 20 meq PO DAILY RF: 0 venlafaxine 75 MG capsule,extended release 24hr 75 mg PO DAILY RF: 0 acetaminophen 325 MG tablet 650 mg PO Q4H PRNRF: 0 hydroxyzine HCl 50 MG tablet 50 mg PO QID PRNRF: 0 dextran 70-hypromellose [Natural Balance Tears] 15 ML drops 1 drp OU TID PRNRF: 0 amlodipine 5 MG tablet 5 mg PO DAILY RF: 0 nortriptyline 25 MG capsule 25 mg PO HS RF: 0 carbamazepine [Tegretol] 200 mg Tablet 100 mg PO BID RF: 0 metoprolol succinate 25 mg Tablet Extended Release 24 Hr 25 mg PO DAILY RF: 0 melatonin 10 mg Capsule 10 mg PO .QHS RF: 0 fentanyl [Duragesic] 75 mcg/hr Patch 72 Hour 75 mcg Transdermal Q72H Qty: 10 RF: 0 amoxicillin-pot clavulanate 875-125 mg Tablet 1 tab PO BID Qty: 14 RF: 0 lisinopril 5 MG tablet 20 mg PO HS Qty: 0 RF: 0 oxycodone 10 MG tablet 10 mg PO Q4H PRN PRNQty: 40 RF: 0 Discharge Instructions Instructions: Hypotension (DC), Complications of Infection (GEN) Additional Instructions: Discharge instructions and filed medication reconciliation will be performed upon discharge from [facility] Stand Alone Forms: Nursing Discharge Form Referrals: Anne Horowitz MD, [place] [Primary Care Provider] - (No follow-up upon discharge from [facility]) Diet:: npo Discharge Orders Discharge Orders: Discharge Order (Routine); Ordered 11/09/17 Ordered By: Manuel Fisher DS: Summary Status at Discharge Cognitive/behavioral status at discharge: Intubated but alert and responsive to simple commands. Moving all 4 extremities and nodding his head yes and no to questions. Time Spent with Patient Greater than 30 minutes (Total of 4-1/2 hours of continuous critical care time spent stabilizing the patient and coordinating care with other in-house providers as well as with [facility]) Exam Const General: ill appearing and patient mechanically ventilated Nutritional Appearance: obese Orientation: alert and awake Limitations: other limitations (intubated making it difficult to assess orientation but he seemed to recognize his sister and nieces prior to [place] [facility] and he was following answers w/ nods of yes/no) [facility] Head: normal to inspection Ears: hearing grossly normal bilaterally Mouth: oral mucosae normal Teeth and gingiva: gingiva abnormal and poor dentition (missiong multiple teeth and evidence of gingivitis) Eyes General: appearance normal, both eyes and all related structures Visual Bear: normal visual bear by confrontation Alignment and Position: alignment normal Eyelids: eyelids normal Sclera: sclerae normal Pupils: PERRL EOM: EOM intact bilaterally and No nystagmus Neck Neck: normal visual inspection, full ROM, trachea midline, supple, no anterior neck swelling and no lymphadenopathy noted Carotids: normal carotid upstroke Lymphatic: lymphadenopathy noted Chest Chest: normal inspection of the chest and normal palpation of entire chest wall Resp Effort & Inspection: abnormal respiratory pattern other (tachypneic and labored), audible wheezes and labored Auscultation: bronchovesicular breath sounds bilaterally and crackles bilaterally Cardio Jugular venous pressure: no JVD (due to very short obese neck, it was difficult to appreciate JVD) Palpation: normal PMI Rate: regular rate Rhythm: regular rhythm Heart Sounds: S1 normal, S2 normal and no murmurs Bruits: no abdominal aortic bruits and no carotid bruits Pulses: brachial pulses present bilaterally, radial pulses present bilaterally, femoral pulses present bilaterally and dorsalis pedis pulses present GI Inspection: distended and obesity Palpation: soft and no guarding Percussion: normal to percussion Auscultation: normal bowel sounds Back/Spine/Pelvis Back: no CVA tenderness Cervical Spine: cervical ROM normal Thoracic/Lumbar Spine: thoracic and lumbar spine normal to inspection Skin General skin exam: dry skin, mottling (intially was mottled during his hypotensive crisis but then pinked up after ROSC and stabilization of his BP) and other (bilateral lower legs w/ chronic stasis dermatitis discoloration w/salmon to purplish discoloration) Lesions: no lesions Trauma: no lacerations or abrasions Wounds: no wounds Nails: dystrophic Neuro General: alert, awake, moves all extremities and no focal motor deficits Cranial Nerves: PERRL, EOM intact bilaterally, no nystagmus, facial strength normal, tongue midline, able to rotate head bilaterally, able to elevate shoulders bilaterally and no nystagmus Motor: muscle tone normal throughout and no movement abnormalities noted Sensory Exam: no sensory deficits noted Extrem General: full ROM, normal capillary refill and edema Laterality: bilateral (right leg is more edematous than his left but has been chronically so) Psych Appearance: disheveled Mental Status: other (after ROSC and stabilization of his blood pressures, he was alert and responsive, GCS 11 (E4, V1-T, M6)) Mood: other (after ROSC and stabilization of his blood pressures, he was alert and responsive, GCS 11 (E4, V1-T, M6)) Affect: normal affect Attitude: cooperative DS: Data Vitals/I&O Vitals and I&O: Vital Signs Temp 37.3 C 11/09/17 07:52 Pulse 82 11/09/17 12:30 Resp 11 L 11/09/17 12:50 BP 169/63 H 11/09/17 12:30 Pulse Ox 100 11/09/17 12:40 Intake & Output 11/08/17 11/09/17 11/09/17 23:59 11:59 23:59 Intake Total 125 / 125 Output Total 250 / 250 Balance -125 / -125 Weight 139.8 kg Intake: IV 125 / 125 Output: Stool 250 / 250 Other: Urine Color Yellow Urine Appearance Clear Comment [facility] Patient Name: CARMITA ROMAN #: [id number]: ICU Ordering Provider: : ADM IN Primary Care Provider: Anne Horowitz M.D., DCDate of Exam: 11/09/17ex: M : 1960Age: 57 Exam(s) EXAM: XR Chest, 1 View CLINICAL HISTORY: 57 years old, male; Condition or disease; Other: Acute respiratory failure; Patient HX: Acute respiratory failure, S/P code blue TECHNIQUE: Frontal view of the chest. COMPARISON: SC - XR PORTABLE CHEST AP 11/09/2017 3:38 AM FINDINGS: Endotracheal tube in good position above the liliana. Left sided central catheter with tip projecting over the mid superior vena cava. Cardiomegaly. Small right pleural effusion. Left costophrenic angle somewhat obscured. No significant focal consolidations. Mild diffuse interstitial lung disease most likely representing scarring. IMPRESSION: Endotracheal tube and central catheter in good position. Cardiomegaly. Interstitial lung disease and probable small bilateral pleural effusions. Dictated and Authenticated by: Marko Hu MD. Ordering:[facility] MD Ordered By: CC: Dictated By: Reports vrad 11/09/17 1239 11/09/17 1332 Transcribed By: CADE WORLEY repeat EKG taken after resuscitation (12:43 pm): demonstrated NSR rate of 83 bpm w/ 1st deg. AV block, RBBB, no acute ST elevations Pending studies at discharge: blood cultures Labs on day of discharge: Labs from last 24 hours 11/09/17 11/09/17 11/09/17 15:00 12:55 12:40 WBC 22.60 H D RBC 4.09 L Hgb 8.0 L Hct 30.0 L MCV 73.3 L MCH 19.6 L MCHC 26.7 L RDW 21.6 H Plt Count 462 H MPV 10.4 Immature Gran % See Differential Neutrophils % 90.0 Lymphocytes % 1.0 Monocytes % 3.0 Eosinophils % 2.0 Basophils % 1.0 Absolute Neutrophils 20.34 H Absolute Lymphocytes 0.23 L Absolute Monocytes 0.68 Absolute Eosinophils 0.45 Absolute Basophils 0.23 H Metamyelocytes 3.0 Nucleated RBCs 1 Differential Comment Manual differential RBC Morphology See below Polychromasia Hypochromasia 2+ Poikilocytosis 1+ Basophilic Stippling Present Anisocytosis 1+ Microcytosis 1+ Schistocytes 1+ Sample Site Right radial pCO2 62 H* pO2 88 O2 Saturation 97 ABG pH 7.00 L* ABG HCO3 15 L ABG Total CO2 16 L ABG Base Excess Pending Oxygen Liter Flow Cannula FiO2 Sodium Pending Potassium Pending Chloride Pending Carbon Dioxide Pending Anion Gap Pending BUN Pending Creatinine Pending Estimated GFR/1.73 m2 Pending Glucose Pending Lactate Calcium Pending Total Bilirubin AST ALT Alkaline Phosphatase Troponin I Total Protein Albumin Urine Color Urine Clarity Urine pH Ur Specific Leland Urine Protein Urine Ketones Urine Blood Urine Nitrite Urine Bilirubin Urine Urobilinogen Ur Leukocyte Esterase Urine RBC Urine WBC Ur Epithelial Cells Urine Crystals Urine Bacteria Urine Casts Urine Mucus Ur Culture Indicated? Urine Glucose 11/09/17 11/09/17 11/09/17 12:40 03:25 03:11 WBC 13.68 H RBC 3.85 L Hgb 7.4 L Hct 27.6 L MCV 71.7 L MCH 19.2 L MCHC 26.8 L RDW 21.2 H Plt Count MPV 11.4 H Immature Gran % 0.0 Neutrophils % 86.0 Lymphocytes % 10.0 Monocytes % 2.0 Eosinophils % 2.0 Basophils % 0.0 Absolute Neutrophils 11.76 H Absolute Lymphocytes 1.37 Absolute Monocytes 0.27 Absolute Eosinophils 0.27 Absolute Basophils 0.00 Metamyelocytes Nucleated RBCs Differential Comment RBC Morphology See below Polychromasia Present Hypochromasia 2+ Poikilocytosis 1+ Basophilic Stippling Present Anisocytosis 1+ Microcytosis 1+ Schistocytes Sample Site pCO2 pO2 O2 Saturation ABG pH ABG HCO3 ABG Total CO2 ABG Base Excess Oxygen Liter Flow FiO2 Sodium 142 Potassium 6.7 H* Chloride 114 H Carbon Dioxide 18.1 L Anion Gap 9.9 BUN 63 H Creatinine 4.23 H* Estimated GFR/1.73 m2 14.53 Glucose 173 H Lactate Calcium 7.5 L Total Bilirubin 0.3 AST 21 ALT 21 Alkaline Phosphatase 206 H Troponin I 0.05 Total Protein 6.1 L Albumin 2.1 L Urine Color Yellow Urine Clarity Sl cloudy Urine pH 5.5 Ur Specific Leland 1.025 Urine Protein 30 H Urine Ketones Trace H Urine Blood Trace-intact H Urine Nitrite Negative Urine Bilirubin Negative Urine Urobilinogen 0.2 Ur Leukocyte Esterase Negative Urine RBC 3-5 H Urine WBC 3-5 Ur Epithelial Cells Rare Urine Crystals Moderate amorphous Urine Bacteria Few Urine Casts Negative Urine Mucus Heavy Ur Culture Indicated? No Urine Glucose Negative 11/09/17 11/09/17 02:53 02:53 WBC RBC Hgb Hct MCV MCH MCHC RDW Plt Count MPV Immature Gran % Neutrophils % Lymphocytes % Monocytes % Eosinophils % Basophils % Absolute Neutrophils Absolute Lymphocytes Absolute Monocytes Absolute Eosinophils Absolute Basophils Metamyelocytes Nucleated RBCs Differential Comment RBC Morphology Polychromasia Hypochromasia Poikilocytosis Basophilic Stippling Anisocytosis Microcytosis Schistocytes Sample Site pCO2 pO2 O2 Saturation ABG pH ABG HCO3 ABG Total CO2 ABG Base Excess Oxygen Liter Flow FiO2 Sodium 142 Potassium 6.2 H* Chloride 112 H Carbon Dioxide 20.9 L Anion Gap 9.1 BUN 66 H Creatinine 3.76 H* Estimated GFR/1.73 m2 16.65 Glucose 121 H Lactate 0.9 Calcium 7.7 L Total Bilirubin 0.1 L AST 13 L ALT 18 Alkaline Phosphatase 181 H Troponin I Total Protein 6.0 L Albumin 2.2 L Urine Color Urine Clarity Urine pH Ur Specific Leland Urine Protein Urine Ketones Urine Blood Urine Nitrite Urine Bilirubin Urine Urobilinogen Ur Leukocyte Esterase Urine RBC Urine WBC Ur Epithelial Cells Urine Crystals Urine Bacteria Urine Casts Urine Mucus Ur Culture Indicated? Urine Glucose Imaging Chest x-ray: My impression: Cardiomegaly, Bilateral pleural effusions, ETT tip approximately 2.4 cm above liliana, mild diffuse interstitial edema Radiologist's impression: See above dictated note Lab and Radiology Reports: Patient Name: CARMITA ROMANit #: [id number]: ICU Ordering Provider: : ADM IN Primary Care Provider: Anne Horowitz M.D., DCDate of Exam: 11/09/17ex: M : 1960Age: 57 Exam(s) EXAM: XR Chest, 1 View CLINICAL HISTORY: 57 years old, male; Condition or disease; Other: Acute respiratory failure; Patient HX: Acute respiratory failure, S/P code blue TECHNIQUE: Frontal view of the chest. COMPARISON: [place] - XR PORTABLE CHEST AP 11/09/2017 3:38 AM FINDINGS: Endotracheal tube in good position above the liliana. Left sided central catheter with tip projecting over the mid superior vena cava. Cardiomegaly. Small right pleural effusion. Left costophrenic angle somewhat obscured. No significant focal consolidations. Mild diffuse interstitial lung disease most likely representing scarring.
--- NOTE | 2017-11-09 13:44 | DSE_ITS ---
DS: Diagnosis Discharge Diagnosis (1) Sepsis: Start date: 11/09/17 Start time: 02:00 Status: Acute Asessment and Plan: Blood and urine cultures were obtained and are pending at this time. Patient was treated with IV vancomycin, IV Zosyn, IV meropenem. Patient is being transferred to [facility] to the critical care team of Dr. Jacome (2) JESUS (acute kidney injury): Status: Acute Asessment and Plan: Patient with worsening renal failure and hyperkalemia. Although patient is making a small amount of urine. After resuscitation he had 100 mL in his Downing catheter. Patient may need to be dialyzed because of the recurrent hyperkalemia. Patient is being transferred to the critical care unit at [facility] where the patient could be considered for CVVH (3) Diabetes mellitus type 2, controlled: Status: Chronic Asessment and Plan: Patient will probably require an insulin drip all intubated and being treated for sepsis. (4) Anxiety: Status: Chronic (5) Hypertension: Status: Chronic Asessment and Plan: All the patient's blood pressure medications were withheld because of his presentation with sepsis and shock (6) Chronic pain: Status: Chronic (7) Hypothyroidism: Status: Chronic Asessment and Plan: Patient will require parenteral levothyroxine until he is able to take in enteral form of this (8) CAD (coronary artery disease): Status: Chronic Asessment and Plan: Patient showed no signs of acute coronary ischemia either by EKG or troponin levels (9) Rheumatoid arthritis: Status: Chronic Asessment and Plan: Patient is been on chronic prednisone therapy 20 mg daily and Humira on an outpatient basis. While hospitalized here he was given stress doses of hydrocortisone 50 mg IV every 6 hours and during the acute cardiopulmonary resuscitation was given additional 100 mg of hydrocortisone (10) Crohns disease: Status: Chronic Asessment and Plan: Patient is status post colectomy and has an ostomy. At the time of discharge his stool was light brown and showed no evidence of acute GI bleeding although he has a chronic anemia (11) DVT prophylaxis: Status: Acute Asessment and Plan: Because of his anemia and presentation with hypotension patient was not treated with heparin or enoxaparin but was placed on pneumatic compression calf cuffs (12) Cardiopulmonary arrest with successful resuscitation: Start date: 11/09/17 Start time: 12:00 Status: Acute Asessment and Plan: Status post successful cardiopulmonary resuscitation. The exact etiology of his bradycardia dysrhythmia and subsequent asystole and PEA are undetermined at this time but may be secondary to hyperkalemia from his acute on chronic renal failure however consideration should be given for possible pulmonary embolus given his chronic bilateral leg edema. It is unlikely that his cardiopulmonary arrest was entirely due to his sepsis Discharge Plan Disposition Patient Disposition: [facility] Condition: Critical Discharge Details Reason For Visit: FEVER,ALTERED MS, JESUS, HYPERKALEMIA, CP ARREST Admit Date/Time: 11/09/17 04:21 Admit Provider: Ariel Bravo Attending Provider: Ariel Bravo Primary [facility] Hospital Course: Patient was admitted to the hospital from a local half-way with altered mental status changes associated with fevers and rigors. Patient was recently hospitalized at [facility] for group C strep sepsis and enterococcus UTI for which he been treated with vancomycin and Zosyn. Patient had been discharged to a half-way on Augmentin. Upon arrival to the emergency room he was awake but not coherent and he was mildly hypotensive with SBP in the 90's . Evaluation in the emergency room included EKG, chest x-ray, routine labs including CMP, CBC , lactic acid, urinalysis per straight cath. He was found to have acute on chronic renal failure with a creatinine up to 3.8 and a potassium of 6.2. CBC showed a leukocytosis of 13,000 and an anemia w/ Hb OF 7.4 gm, HCT 27%. Initial EKG showed normal sinus rhythm at a rate of 81 bpm with no acute ST changes. But nonspecific intraventricular conduction defect with an RSR prime in the septal leads. He was treated emergency room with an amp of dextrose 50%, 10 units regular insulin, 1 amp of calcium gluconate. He was given a bolus of saline 1 L and then switch to lactated Ringer's. Blood cultures were initially ordered but were not able to be obtained before starting antibiotics. Urinalysis was negative for leukocyte esterase and only had 3-5 white cells and 3-5 red cells and a few bacteria. He was started on Zosyn and vancomycin. Initial chest x-ray showed no acute infiltrates. Patient was admitted to the intensive care unit for treatment of sepsis of unknown origin Upon arrival to the intensive care unit patient proceeded to become more hypotensive dropping his systolic pressure in the 60s despite being given further IV fluid resuscitation up to 4 liters and the patient was started on Norepinephrine drip at 15 mcg/minute. Due to poor peripheral iv access, and unsuccessful attempt was made at placing a right IJ triple lumen cvp. Venous access was obtained by ultrasound guidance using an introducer needle and syringe provided in the CVP However the guidewire could not be threaded and further attempts at gaining access were unsuccessful. While attempting to place the CVP line the patient became bradycardic and his hypotension became refractory to norepinephrine thus necessitating an epinephrine drip. The bradycardia became severe enough that he required atropine and initiation of CPR. Patient's baseline rhythm deteriorated into asystole but with prolonged CPR that went on for 30 minutes and after additional doses of IV epinephrine and titration of the epinephrine drip and addition of vasopressin patient's rhythm went from asystole to PEA and finally he had a return of spontaneous circulation with a sinus rhythm in the 80s. The PIG CONVEYOR OPERATOR Mr. Lezama and Dr. Prado, general surgeon was consulted to assist in the care of the patient. Dr. Prado made an attempt at a left femoral triple-lumen CVP which was unsuccessful. She did successfully place a left subclavian CVP however these procedures were done under nonsterile conditions as he occurred during the resuscitation of the patient. Mr. Wright assisted with code management and intubated the patient successfully using a glide scope #8 endotracheal tube to a level of 25 cm at the lips. Placement of the central line and endotracheal tube are confirmed by chest x-ray. During the resuscitation for cardiac arrest bedside ultrasound was used to assess for pneumothorax and none was noted. Patient had good pleural lung sliding in all bear. Chest x-ray also showed no evidence for pneumothorax. In addition to the Zosyn and vancomycin given in the emergency room patient was given meropenem 0.5 g adjusted for his renal insufficiency. During the code resuscitation he was given additional dose of calcium gluconate and [address] Prado after attempting an unsucceful right femoral CVP then successfully placed a left subclavian triple lumen CVP and Mr. Lezama placed a right IO access in the right tibia and a right radial arterial line. All of these procedures ended up being unsterile as the patient was actively being resuscited w/ CPR which went on for 30 to 35 minutes.After ROSC the patient began to become more alert and spontaneously opening his eyes and looking at the staff and his family and following simple commands. [facility] transfer center was called in consultation was obtained with Dr. Jacome, haulage engine operator. After review of the case he accepted the patient in transfer. Patient was transferred to [facility] via [facility] air life flight. Home Meds and New Rx's Prescriptions: Discontinued risperidone [Risperdal] 3 MG tablet 3 mg PO HS Qty: 90 RF: 3 levothyroxine 50 MCG tablet 50 mcg PO DAILY Qty: 90 RF: 3 folic acid 1 MG tablet 1 mg PO DAILY Qty: 90 RF: 3 omeprazole 20 MG capsule,delayed release(DR/EC) 20 mg PO DAILY Qty: 90 RF: 3 lancets [FreeStyle Lancets] 1 EACH misc 1 ea Miscellaneous RF: 0 furosemide 40 MG tablet 40 mg PO QAM Qty: 7 RF: 0 blood sugar diagnostic [FreeStyle Lite Strips] 1 EACH strip 1 ea Miscellaneous TID Qty: 100 RF: 11 omega-3 acid ethyl esters [Lovaza] 1 GM capsule 1 gm PO BID Qty: 180 RF: 3 cyanocobalamin (vitamin B-12) [Vitamin B-12] 1,000 MCG tablet extended release 1,000 mcg PO DAILY Qty: 90 RF: 0 pen needle, diabetic [Pen Needle] 1 EACH needle 1 ea Miscellaneous DAILY Qty: 100 RF: 5 ergocalciferol (vitamin D2) [Drisdol] 50,000 UNIT capsule 50,000 units PO DIRECTED RF: 0 prednisone 5 MG tablet 20 mg PO DAILY Qty: 30 RF: 0 acetaminophen 500 MG tablet 1,000 mg PO BID RF: 0 gabapentin 800 MG tablet 800 mg PO TID RF: 0 sertraline 50 MG tablet 50 mg PO 2000 RF: 0 thymol-chlorophyllin [Chlorophyll] 1 EACH tablet 3 mg PO TID RF: 0 carboxymethylcellulose-glycern [Refresh Optive] 15 ML drops 1 drp Ophthalmic BID RF: 0 stjs-qgoydy-kjxapbdl-D3-C-Mn [Arppptgnhgc-Sovtpz-P5 (C-elton)] 1 EACH capsule 1 tab PO TID RF: 0 insulin glargine [Lantus Solostar U-100 Insulin] 300 UNITS/3 ML insulin pen 80 units Sub-Q BID RF: 0 oxybutynin chloride [Ditropan XL] 15 MG tablet extended release 24hr 15 mg PO DAILY RF: 0 insulin aspart U-100 [Novolog U-100 Insulin aspart] 100 UNITS/ML solution 25 - 50 units Sub-Q AC RF: 0 potassium chloride [Klor-Con M10] 10 MEQ tablet,ER particles/crystals 20 meq PO DAILY RF: 0 venlafaxine 75 MG capsule,extended release 24hr 75 mg PO DAILY RF: 0 acetaminophen 325 MG tablet 650 mg PO Q4H PRNRF: 0 hydroxyzine HCl 50 MG tablet 50 mg PO QID PRNRF: 0 dextran 70-hypromellose [Natural Balance Tears] 15 ML drops 1 drp OU TID PRNRF: 0 amlodipine 5 MG tablet 5 mg PO DAILY RF: 0 nortriptyline 25 MG capsule 25 mg PO HS RF: 0 carbamazepine [Tegretol] 200 mg Tablet 100 mg PO BID RF: 0 metoprolol succinate 25 mg Tablet Extended Release 24 Hr 25 mg PO DAILY RF: 0 melatonin 10 mg Capsule 10 mg PO .QHS RF: 0 fentanyl [Duragesic] 75 mcg/hr Patch 72 Hour 75 mcg Transdermal Q72H Qty: 10 RF: 0 amoxicillin-pot clavulanate 875-125 mg Tablet 1 tab PO BID Qty: 14 RF: 0 lisinopril 5 MG tablet 20 mg PO HS Qty: 0 RF: 0 oxycodone 10 MG tablet 10 mg PO Q4H PRN PRNQty: 40 RF: 0 Discharge Instructions Instructions: Hypotension (DC), Complications of Infection (GEN) Additional Instructions: Discharge instructions and filed medication reconciliation will be performed upon discharge from [facility] Stand Alone Forms: Nursing Discharge Form Referrals: Anne Horowitz MD, [place] [Primary Care Provider] - (No follow-up upon discharge from [facility]) Diet:: npo Discharge Orders Discharge Orders: Discharge Order (Routine); Ordered 11/09/17 Ordered By: Manuel Fisher DS: Summary Status at Discharge Cognitive/behavioral status at discharge: Intubated but alert and responsive to simple commands. Moving all 4 extremities and nodding his head yes and no to questions. Time Spent with Patient Greater than 30 minutes (Total of 4-1/2 hours of continuous critical care time spent stabilizing the patient and coordinating care with other in-house providers as well as with [facility]) Exam Const General: ill appearing and patient mechanically ventilated Nutritional Appearance: obese Orientation: alert and awake Limitations: other limitations (intubated making it difficult to assess orientation but he seemed to recognize his sister and nieces prior to discharge to [facility] and he was following answers w/ nods of yes/no) [facility] Head: normal to inspection Ears: hearing grossly normal bilaterally Mouth: oral mucosae normal Teeth and gingiva: gingiva abnormal and poor dentition (missiong multiple teeth and evidence of gingivitis) Eyes General: appearance normal, both eyes and all related structures Visual Bear: normal visual bear by confrontation Alignment and Position: alignment normal Eyelids: eyelids normal Sclera: sclerae normal Pupils: PERRL EOM: EOM intact bilaterally and No nystagmus Neck Neck: normal visual inspection, full ROM, trachea midline, supple, no anterior neck swelling and no lymphadenopathy noted Carotids: normal carotid upstroke Lymphatic: lymphadenopathy noted Chest Chest: normal inspection of the chest and normal palpation of entire chest wall Resp Effort & Inspection: abnormal respiratory pattern other (tachypneic and labored) , audible wheezes and labored Auscultation: bronchovesicular breath sounds bilaterally and crackles bilaterally Cardio Jugular venous pressure: no JVD (due to very short obese neck, it was difficult to appreciate JVD) Palpation: normal PMI Rate: regular rate Rhythm: regular rhythm Heart Sounds: S1 normal, S2 normal and no murmurs Bruits: no abdominal aortic bruits and no carotid bruits Pulses: brachial pulses present bilaterally, radial pulses present bilaterally, femoral pulses present bilaterally and dorsalis pedis pulses present GI Inspection: distended and obesity Palpation: soft and no guarding Percussion: normal to percussion Auscultation: normal bowel sounds Back/Spine/Pelvis Back: no CVA tenderness Cervical Spine: cervical ROM normal Thoracic/Lumbar Spine: thoracic and lumbar spine normal to inspection Skin General skin exam: dry skin, mottling (intially was mottled during his hypotensive crisis but then pinked up after ROSC and stabilization of his BP) and other (bilateral lower legs w/ chronic stasis dermatitis discoloration w/ salmon to purplish discoloration) Lesions: no lesions Trauma: no lacerations or abrasions Wounds: no wounds Nails: dystrophic Neuro General: alert, awake, moves all extremities and no focal motor deficits Cranial Nerves: PERRL, EOM intact bilaterally, no nystagmus, facial strength normal, tongue midline, able to rotate head bilaterally, able to elevate shoulders bilaterally and no nystagmus Motor: muscle tone normal throughout and no movement abnormalities noted Sensory Exam: no sensory deficits noted Extrem General: full ROM, normal capillary refill and edema Laterality: bilateral ( right leg is more edematous than his left but has been chronically so) Psych Appearance: disheveled Mental Status: other (after ROSC and stabilization of his blood pressures, he was alert and responsive, GCS 11 (E4, V1-T, M6)) Mood: other (after ROSC and stabilization of his blood pressures, he was alert and responsive, GCS 11 (E4, V1-T, M6)) Affect: normal affect Attitude: cooperative DS: Data Vitals/I&O Vitals and I&O: Vital Signs Temp 37.3 C 11/09/17 07:52 Pulse 82 11/09/17 12:30 Resp 11 L 11/09/17 12:50 BP 169/63 H 11/09/17 12:30 Pulse Ox 100 11/09/17 12:40 Intake & Output 11/08/17 11/09/17 11/09/17 23:59 11:59 23:59 Intake Total 125 / 125 Output Total 250 / 250 Balance -125 / -125 Weight 139.8 kg Intake: IV 125 / 125 Output: Stool 250 / 250 Other: Urine Color Yellow Urine Appearance Clear Comment [facility] Patient Name: CARMITA ROMAN #: [id number]: ICU Ordering Provider: : ADM IN Primary Care Provider: Anne Horowitz M.D., DCDate of Exam: 11/09/17ex: M : 1960Age: 57 Exam(s) EXAM: XR Chest, 1 View CLINICAL HISTORY: 57 years old, male; Condition or disease; Other: Acute respiratory failure; Patient HX: Acute respiratory failure, S/P code blue TECHNIQUE: Frontal view of the chest. COMPARISON: SC - XR PORTABLE CHEST AP 11/09/2017 3:38 AM FINDINGS: Endotracheal tube in good position above the liliana. Left sided central catheter with tip projecting over the mid superior vena cava. Cardiomegaly. Small right pleural effusion. Left costophrenic angle somewhat obscured. No significant focal consolidations. Mild diffuse interstitial lung disease most likely representing scarring. IMPRESSION: Endotracheal tube and central catheter in good position. Cardiomegaly. Interstitial lung disease and probable small bilateral pleural effusions. Dictated and Authenticated by: Marko Hu MD. Ordering:[facility] MD Ordered By: CC: Dictated By: Reports vrad 11/09/17 1239 11/09/17 1332 Transcribed By: CADE WORLEY repeat EKG taken after resuscitation (12:43 pm): demonstrated NSR rate of 83 bpm w/ 1st deg. AV block, RBBB, no acute ST elevations Pending studies at discharge: blood cultures Labs on day of discharge: Labs from last 24 hours 11/09/17 11/09/17 11/09/17 15:00 12:55 12:40 WBC 22.60 H D RBC 4.09 L Hgb 8.0 L Hct 30.0 L MCV 73.3 L MCH 19.6 L MCHC 26.7 L RDW 21.6 H Plt Count 462 H MPV 10.4 Immature Gran % See Differential Neutrophils % 90.0 Lymphocytes % 1.0 Monocytes % 3.0 Eosinophils % 2.0 Basophils % 1.0 Absolute Neutrophils 20.34 H Absolute Lymphocytes 0.23 L Absolute Monocytes 0.68 Absolute Eosinophils 0.45 Absolute Basophils 0.23 H Metamyelocytes 3.0 Nucleated RBCs 1 Differential Comment Manual differential RBC Morphology See below Polychromasia Hypochromasia 2+ Poikilocytosis 1+ Basophilic Stippling Present Anisocytosis 1+ Microcytosis 1+ Schistocytes 1+ Sample Site Right radial pCO2 62 H* pO2 88 O2 Saturation 97 ABG pH 7.00 L* ABG HCO3 15 L ABG Total CO2 16 L ABG Base Excess Pending Oxygen Liter Flow Cannula FiO2 Sodium Pending Potassium Pending Chloride Pending Carbon Dioxide Pending Anion Gap Pending BUN Pending Creatinine Pending Estimated GFR/1.73 m2 Pending Glucose Pending Lactate Calcium Pending Total Bilirubin AST ALT Alkaline Phosphatase Troponin I Total Protein Albumin Urine Color Urine Clarity Urine pH Ur Specific [place] Urine Protein Urine Ketones Urine Blood Urine Nitrite Urine Bilirubin Urine Urobilinogen Ur Leukocyte Esterase Urine RBC Urine WBC Ur Epithelial Cells Urine Crystals Urine Bacteria Urine Casts Urine Mucus Ur Culture Indicated? Urine Glucose 11/09/17 11/09/17 11/09/17 12:40 03:25 03:11 WBC 13.68 H RBC 3.85 L Hgb 7.4 L Hct 27.6 L MCV 71.7 L MCH 19.2 L MCHC 26.8 L RDW 21.2 H Plt Count MPV 11.4 H Immature Gran % 0.0 Neutrophils % 86.0 Lymphocytes % 10.0 Monocytes % 2.0 Eosinophils % 2.0 Basophils % 0.0 Absolute Neutrophils 11.76 H Absolute Lymphocytes 1.37 Absolute Monocytes 0.27 Absolute Eosinophils 0.27 Absolute Basophils 0.00 Metamyelocytes Nucleated RBCs Differential Comment RBC Morphology See below Polychromasia Present Hypochromasia 2+ Poikilocytosis 1+ Basophilic Stippling Present Anisocytosis 1+ Microcytosis 1+ Schistocytes Sample Site pCO2 pO2 O2 Saturation ABG pH ABG HCO3 ABG Total CO2 ABG Base Excess Oxygen Liter Flow FiO2 Sodium 142 Potassium 6.7 H* Chloride 114 H Carbon Dioxide 18.1 L Anion Gap 9.9 BUN 63 H Creatinine 4.23 H* Estimated GFR/1.73 m2 14.53 Glucose 173 H Lactate Calcium 7.5 L Total Bilirubin 0.3 AST 21 ALT 21 Alkaline Phosphatase 206 H Troponin I 0.05 Total Protein 6.1 L Albumin 2.1 L Urine Color Yellow Urine Clarity Sl cloudy Urine pH 5.5 Ur Specific [place] 1.025 Urine Protein 30 H Urine Ketones Trace H Urine Blood Trace-intact H Urine Nitrite Negative Urine Bilirubin Negative Urine Urobilinogen 0.2 Ur Leukocyte Esterase Negative Urine RBC 3-5 H Urine WBC 3-5 Ur Epithelial Cells Rare Urine Crystals Moderate amorphous Urine Bacteria Few Urine Casts Negative Urine Mucus Heavy Ur Culture Indicated? No Urine Glucose Negative 11/09/17 11/09/17 02:53 02:53 WBC RBC Hgb Hct MCV MCH MCHC RDW Plt Count MPV Immature Gran % Neutrophils % Lymphocytes % Monocytes % Eosinophils % Basophils % Absolute Neutrophils Absolute Lymphocytes Absolute Monocytes Absolute Eosinophils Absolute Basophils Metamyelocytes Nucleated RBCs Differential Comment RBC Morphology Polychromasia Hypochromasia Poikilocytosis Basophilic Stippling Anisocytosis Microcytosis Schistocytes Sample Site pCO2 pO2 O2 Saturation ABG pH ABG HCO3 ABG Total CO2 ABG Base Excess Oxygen Liter Flow FiO2 Sodium 142 Potassium 6.2 H* Chloride 112 H Carbon Dioxide 20.9 L Anion Gap 9.1 BUN 66 H Creatinine 3.76 H* Estimated GFR/1.73 m2 16.65 Glucose 121 H Lactate 0.9 Calcium 7.7 L Total Bilirubin 0.1 L AST 13 L ALT 18 Alkaline Phosphatase 181 H Troponin I Total Protein 6.0 L Albumin 2.2 L Urine Color Urine Clarity Urine pH Ur Specific [place] Urine Protein Urine Ketones Urine Blood Urine Nitrite Urine Bilirubin Urine Urobilinogen Ur Leukocyte Esterase Urine RBC Urine WBC Ur Epithelial Cells Urine Crystals Urine Bacteria Urine Casts Urine Mucus Ur Culture Indicated? Urine Glucose Imaging Chest x-ray: My impression: Cardiomegaly, Bilateral pleural effusions, ETT tip approximately 2.4 cm above liliana, mild diffuse interstitial edema Radiologist's impression: See above dictated note Lab and Radiology Reports: Patient Name: CARMITA ROMANit #: [id number]: ICU Ordering Provider: : ADM IN Primary Care Provider: Anne Horowitz M.D., DCDate of Exam: 11/09/17ex: M : 1960Age: 57 Exam(s) EXAM: XR Chest, 1 View CLINICAL HISTORY: 57 years old, male; Condition or disease; Other: Acute respiratory failure; Patient HX: Acute respiratory failure, S/P code blue TECHNIQUE: Frontal view of the chest. COMPARISON: SC - XR PORTABLE CHEST AP 11/09/2017 3:38 AM FINDINGS: Endotracheal tube in good position above the liliana. Left sided central catheter with tip projecting over the mid superior vena cava. Cardiomegaly. Small right pleural effusion. Left costophrenic angle somewhat obscured. No significant focal consolidations. Mild diffuse interstitial lung disease most likely representing scarring.
[2017-11-09] MEDS: Sodium Bicarbonate 50 MEQ/50 ML SYR IVP (14:18)
--- NOTE | 2017-11-09 15:34 | W.PM.OP ---
Date of service: 11/09/17 Time of Service: 12:34 Operative Note Date of procedure: 11/09/17 Pre-op diagnosis: Code blue Post-op diagnosis: same Procedure: Left subclavian vein central line placement Surgeon: Anna Prado Anesthesia: none Estimated blood loss (mL): 10 Pathology: none sent Complications: None Patient was transported to: other ([facility]) Patient's condition: critical Indications: Mr. Corley is a 57 year old male admitted to the ICU with sepsis. WHile the hospitalist was attempting to place a IJ central line he coded. During the Code i was asked to place a Central line for IV access Procedure Description: While laying in a supine position the skin was quickly cleaned with chlorhexidine. The needle was used to find the left subclavian vein. Once the vein was identified the guide wire was placed through the needle into the vein. There was no resistance. The needle was removed. A small incision was made at the entrance of the guide wire. The dilator was placed over the guide wire into the vein. The guide wire was removed and the triple lumen catheter was placed. The 3 ports were flushed with Normal Saline. The line was secured with silk.
--- NOTE | 2017-11-09 15:40 | ROE_ITS ---
Date of service: 11/09/17 Time of Service: 12:34 Operative Note Date of procedure: 11/09/17 Pre-op diagnosis: Code blue Post-op diagnosis: same Procedure: Left subclavian vein central line placement Surgeon: Anna Prado Anesthesia: none Estimated blood loss (mL): 10 Pathology: none sent Complications: None Patient was transported to: other ([facility]) Patient's condition: critical Indications: Mr. Corley is a 57 year old male admitted to the ICU with sepsis. WHile the hospitalist was attempting to place a IJ central line he coded. During the Code i was asked to place a Central line for IV access Procedure Description: While laying in a supine position the skin was quickly cleaned with chlorhexidine. The needle was used to find the left subclavian vein. Once the vein was identified the guide wire was placed through the needle into the vein. There was no resistance. The needle was removed. A small incision was made at the entrance of the guide wire. The dilator was placed over the guide wire into the vein. The guide wire was removed and the triple lumen catheter was placed. The 3 ports were flushed with Normal Saline. The line was secured with silk.
== END 2017-11-09 14:35 | disposition short-term general hospital (02) | DRG 871 ==
LOC: ER 05:23 → ICU 13:22
PROVIDERS: Admitting Provider Internal Medicine; Emergency Provider Emergency Medicine; PCP Family Medicine; Visit Provider Internal Medicine
DX: A41.9 Sepsis, unspecified organism (principal); R65.21 Severe sepsis with septic shock; I46.8 Cardiac arrest due to other underlying condition; N17.9 Acute kidney failure, unspecified; E87.5 Hyperkalemia; E03.9 Hypothyroidism, unspecified; M06.9 Rheumatoid arthritis, unspecified; I25.10 Atherosclerotic heart disease of native coronary artery without angina pectoris; Z93.3 Colostomy status; E11.22 Type 2 diabetes mellitus with diabetic chronic kidney disease; N18.9 Chronic kidney disease, unspecified; I12.9 Hypertensive chronic kidney disease with stage 1 through stage 4 chronic kidney disease, or unspecified chronic kidney disease; D64.9 Anemia, unspecified
CPT/HCPCS: 36410; 36416; 36556; 51701; 80048; 80053; 82805; 82962; 87040; 93005; 96361; 96365; 96375; 99222; 99285; 99291; 71045; 81003; 81015; 83605; 84484; 85025; 93010; 94002; J0171; J0610; J1720; J2543; J3490

== ENCOUNTER 2017-12-08 11:27 | Outpatient (REF) | payer MEDICARE, MEDICAID, SELFPAY ==
[2017-12-08 14:50] LABS: Abs Immature Grans 0.29 k/cumm (0.0-0.09); HCT 32.2 % (40.0-50.0); HGB 9.4 g/dL (13.5-17.5); Mean Corp. HGB Concentration 29.2 g/dL (32.0-36.0); Mean Corpuscular Hemoglobin 22.1 pg (27.0-33.0); Mean Corpuscular Volume 75.6 fL (80-95); Mean Platelet Volume 10.3 fL (8.0-11.0); RBC 4.26 m/cumm (4.50-6.00); RBC Distribution Width 20.1 % (11.8-14.1); White Blood Cell Count 12.55 k/cumm (4.4-10.8)
[2017-12-08 15:02] LABS: Anion Gap 11.4 mmol/L (3-11); BUN 37 mg/dL (7-18); CO2 22.6 mmol/L (21.0-32.0); CREATININE 2.51 mg/dL (0.70-1.30); Calcium 8.4 mg/dL (8.5-10.1); Chloride 105 mmol/L (98-107); Estimated GFR 26.54 (mL/min/1.73m2); Glucose 158 mg/dL (70-100); Potassium 4.6 mmol/L (3.5-5.1); Sodium 139 mmol/L (136-145)
[2017-12-08 15:19] LABS: Hemoglobin A1C 6.8 % (4.5-6.2)
[2017-12-08 15:34] LABS: Platelet Count 761 x1000/uL (130-400)
[2017-12-08 15:35] LABS: Absolute Neutrophil Count 9.79 k/cumm (1.2-6.7)
[2017-12-08 15:37] LABS: Absolute Lymphocyte Count 1.26 k/cumm (1.2-3.4); Atypical Lymphocytes % 0
[2017-12-08 15:39] LABS: Absolute Eosinophil Count 0.25 k/cumm (0.0-0.7)
[2017-12-08 15:40] LABS: Anisocytosis 1+; Diff Comment Manual Differential; Microcytosis 1+; Polychromasia Present
== END 2017-12-08 11:47 ==
LOC: LBN 11:27
PROVIDERS: PCP Family Medicine; Visit Provider Family Medicine
DX: E11.40 Type 2 diabetes mellitus with diabetic neuropathy, unspecified (principal); R53.83 Other fatigue; K81.9 Cholecystitis, unspecified
CPT/HCPCS: 80048; 83036; 85025

== ENCOUNTER 2017-12-15 11:00 | Outpatient (REF) | payer MEDICARE, MEDICAID, SELFPAY ==
[2017-12-16 12:15] LABS: Abs Immature Grans 0.14 k/cumm (0.0-0.09); Absolute Basophil Count 0.06 k/cumm (0.0-0.2); Absolute Lymphocyte Count 1.34 k/cumm (1.2-3.4); Absolute Neutrophil Count 12.55 k/cumm (1.2-6.7); Basophils % 0.4; Eosinophils % 7.2; HCT 33.6 % (40.0-50.0); HGB 9.6 g/dL (13.5-17.5); Immature Grans % 0.9; Lymphocytes % 8.4; Mean Corp. HGB Concentration 28.6 g/dL (32.0-36.0); Mean Corpuscular Hemoglobin 21.7 pg (27.0-33.0); Mean Platelet Volume 9.5 fL (8.0-11.0); Monocytes % 4.7; Neutrophils % 78.4; Platelet Count 510 x1000/uL (130-400); RBC 4.42 m/cumm (4.50-6.00); RBC Distribution Width 20.2 % (11.8-14.1); White Blood Cell Count 16.01 k/cumm (4.4-10.8)
[2017-12-16 12:17] LABS: Absolute Eosinophil Count 1.15 k/cumm (0.0-0.7); Absolute Monocyte Count 0.75 k/cumm (0.11-0.7)
[2017-12-16 12:27] LABS: ALT 17 U/L (12-78); AST 17 U/L (15-37); Albumin 2.3 g/dL (3.4-5.0); Alkaline Phosphatase 360 U/L (46-116); BUN 45 mg/dL (7-18); Bilirubin, Total 0.2 mg/dL (0.2-1.0); CREATININE 2.39 mg/dL (0.70-1.30); Calcium 8.6 mg/dL (8.5-10.1); Chloride 103 mmol/L (98-107); Estimated GFR 28.08 (mL/min/1.73m2); Glucose 122 mg/dL (70-100); Magnesium 1.5 mg/dL (1.8-2.4); Potassium 4.8 mmol/L (3.5-5.1); Sodium 137 mmol/L (136-145); Total Protein 6.9 g/dL (6.4-8.2)
[2017-12-16 12:31] LABS: Anisocytosis 3+; Basophilic Stippling Present; Diff Comment RBC Morph Reviewed; Hypochromasia 2+; Microcytosis 2+; Polychromasia Present
[2017-12-16 12:32] LABS: Poikilocytes 2+
== END 2017-12-15 11:20 ==
LOC: LBN 11:00
PROVIDERS: PCP Family Medicine; Visit Provider Family Medicine
DX: A41.9 Sepsis, unspecified organism (principal); R53.83 Other fatigue; E87.8 Other disorders of electrolyte and fluid balance, not elsewhere classified
CPT/HCPCS: 80053; 83735; 85025

== ENCOUNTER 2017-12-22 13:05 | Outpatient (REF) | payer MEDICARE, MEDICAID, SELFPAY ==
[2017-12-22 14:27] LABS: Abs Immature Grans 0.08 k/cumm (0.0-0.09); Absolute Basophil Count 0.06 k/cumm (0.0-0.2); Absolute Eosinophil Count 0.97 k/cumm (0.0-0.7); Absolute Lymphocyte Count 0.94 k/cumm (1.2-3.4); Absolute Monocyte Count 0.71 k/cumm (0.11-0.7); Absolute Neutrophil Count 11.68 k/cumm (1.2-6.7); Basophils % 0.4; Eosinophils % 6.7; HCT 30.6 % (40.0-50.0); HGB 9.1 g/dL (13.5-17.5); Immature Grans % 0.6; Lymphocytes % 6.5; Mean Corp. HGB Concentration 29.7 g/dL (32.0-36.0); Mean Corpuscular Hemoglobin 21.8 pg (27.0-33.0); Mean Corpuscular Volume 73.4 fL (80-95); Mean Platelet Volume 9.8 fL (8.0-11.0); Monocytes % 4.9; Neutrophils % 80.9; Platelet Count 442 x1000/uL (130-400); RBC 4.17 m/cumm (4.50-6.00); RBC Distribution Width 18.9 % (11.8-14.1); White Blood Cell Count 14.44 k/cumm (4.4-10.8)
[2017-12-22 14:41] LABS: Anisocytosis 3+; Diff Comment RBC Morph Reviewed; Hypochromasia 2+; Ovalocytes 2+
[2017-12-22 14:42] LABS: Poikilocytes 1+
[2017-12-22 14:45] LABS: ALT 13 U/L (12-78); AST 13 U/L (15-37); Alkaline Phosphatase 319 U/L (46-116); Anion Gap 10.3 mmol/L (3-11); BUN 24 mg/dL (7-18); Bilirubin, Total 0.3 mg/dL (0.2-1.0); CO2 23.7 mmol/L (21.0-32.0); CREATININE 2.06 mg/dL (0.70-1.30); Calcium 8.2 mg/dL (8.5-10.1); Chloride 106 mmol/L (98-107); Estimated GFR 33.33 (mL/min/1.73m2); Glucose 59 mg/dL (70-100); Magnesium 1.3 mg/dL (1.8-2.4); Potassium 4.3 mmol/L (3.5-5.1); Sodium 140 mmol/L (136-145); Total Protein 6.3 g/dL (6.4-8.2)
== END 2017-12-22 13:25 ==
LOC: LBN 13:05
PROVIDERS: PCP Family Medicine; Visit Provider Family Medicine
DX: I10 Essential (primary) hypertension (principal); R53.83 Other fatigue; M79.609 Pain in unspecified limb
CPT/HCPCS: 80053; 83735; 85025

== ENCOUNTER 2017-12-23 21:07 | Inpatient (IN) | payer MEDICARE, MEDICAID, SELFPAY ==
[2017-12-23] VITALS (8 sets, daily range): BP systolic 129–149; BP diastolic 62–71; PULSE 83–99; RESP 19–33; TEMP 39.9; O2SAT 90–100
[2017-12-23] MEDS: Lactated Ringers 1,000 ML 1000 ML IV (21:37)
[2017-12-23 21:39] LABS: Lactate-non-spesis 1.2 mmol/L (0.6-1.4)
--- NOTE | 2017-12-23 21:41 | ED.GENADUL_ITS ---
Discharge Plan Disposition Patient Disposition: [facility] IN[facility]IENT Condition: Fair Discharge Details Chief Complaint: Fever Clinical Impression: Sepsis, Cellulitis Reason For Visit: FEVER Admit Date/Time: 12/24/17 00:16 Admit Provider: Chance Fragoso Attending Provider: Chance Fragoso Primary Care Provider: Anne Horowitz ED Provider: Jorge Hayes Discharge Data Discharge Date/Time-TO BE ENTERED AT DEPARTURE: 12/24/17 00:55 Medical Decision Making 21:45 --57-year-old male with multiple medical problems including recent sepsis with enterococcus and group C strep bacteremia, secondary to cholecystitis, not a surgical candidate and now status post percutaneous cholecystotomy tube drainage that continues to drain, here from [facility] with fever and erythema of his right lower extremity. Patient is tachycardic and febrile here to 103.2. He does have what appears to be cellulitis of the right lower extremity. Patient is septic. Blood culture and lactate pending. Crystaloid IVF bolus. Patient is not currently on antibiotics. I will cover him with broad-spectrum antibiotic. Consider intra-abdominal source for infection including abscess or other acute surgical process. Will CT abd/pelv. 22:45 -- Some redness and itching noted at right wrist IV site with vancomycin infusing. Suspect local reaction. Patient tolerated vanco at [facility]. Will switch IV sites, slow infusion, and give benadryl 50mg. 23:30 -- Pt seems to be tolerating vancomycin at this point. No rash, swelling or wheeze. This should be monitored closely as could be allergic reaction despite prior tolerance. CT of the chest reviewed and interpreted by radiology: Small right pleural effusion and consolidation at the right lung base which likely represents atelectasis but cannot exclude pneumonia. Sequela of prior granulomatous disease. Chronic fractures of the bilateral anterior ribs, right anterior glenoid and sternum. CT of the abdomen and pelvis interpreted by radiology: Pigtail catheter coiled in the gallbladder fossa with trace residual fluid in this region. There are 2 hyperdensities in the gallbladder fossa which appeared to be stones in a contracted gallbladder. No significant residual fluid collection noted. I called and spoke with hospitalist electronic operator Dr. Fragoso who will admit the patient for sepsis, likely source cellulitis of the right lower extremity, consider pneumonia. Labs reviewed and leukocytosis noted. Lactate normal. Urinalysis pending at time of admission. HPI General Mode of arrival: EMS . Date/Time Provider Initiated Documentation: 12/23/17 21:09 . Limitations to Documentation: altered mental status . Information obtained by: EMS . HPI Narrative: 57-year-old male with multiple medical problems including recent septic shock presumed secondary to cholecystitis, status post percutaneous cholecystotomy tube, recent renal failure, rheumatoid arthritis on prednisone, diabetes, hypertension, coronary artery disease, CHF, bipolar disorder, Crohn's disease, here with EMS from nursing rehab facility with fever today. Fever was as high as 103.2. Nursing at rehab facility also noting redness to his leg. History somewhat limited as patient is a poor historian. Patient has no complaints at this time. Related Data Home Medications Medication Instructions Recorded Confirmed acetaminophen [Acetaminophen Extra 500 mg PO BID 12/23/17 12/23/17 Strength] aspirin [Aspirin Low Dose] 81 mg PO BID 12/23/17 12/23/17 carbamazepine 100 mg PO TID 12/23/17 12/23/17 cyanocobalamin (vitamin B-12) 1,000 mcg PO DAILY 12/23/17 12/23/17 folic acid 1 mg PO DAILY 12/23/17 12/23/17 furosemide 40 mg PO DAILY 12/23/17 12/23/17 gabapentin 800 mg PO TID 12/23/17 12/23/17 levothyroxine 50 mcg PO DAILY 12/23/17 12/23/17 liraglutide [Victoza 2-Saleem] 1.2 mg SUBCUT DAILY 12/23/17 12/23/17 loperamide 2 mg PO DAILY 12/23/17 12/23/17 loperamide 2 mg PO QID PRN 12/23/17 12/23/17 multivitamin with iron [One Daily 1 tab PO DAILY 12/23/17 12/23/17 Multi-Vit w-Mineral] nortriptyline 25 mg PO DAILY 12/23/17 12/23/17 omega 3-qnq-dzx-fish oil [Fish Oil] 2 cap PO DAILY 12/23/17 12/23/17 omeprazole 20 mg PO DAILY 12/23/17 12/23/17 prednisone 10 mg PO DAILY 12/23/17 12/23/17 risperidone 3 mg PO HS 12/23/17 12/23/17 sertraline 25 mg PO DAILY 12/23/17 12/23/17 trazodone 50 mg PO HS 12/23/17 12/23/17 venlafaxine 75 mg PO TID 12/23/17 12/23/17 amlodipine 10 mg PO DAILY #0 tab 12/31/17 ammonium lactate See Label Instructions .ROUTE 12/31/17 .COMPLEX #0 tube amoxicillin-pot clavulanate 1 tab PO BID #19 tab 12/31/17 ascorbic acid (vitamin C) [Vitamin 500 mg PO BID #0 tab 12/31/17 C] carvedilol [Coreg] 6.25 mg PO BID #60 tab 12/31/17 clonidine HCl [Catapres] 0.3 mg PO TID #0 tab 12/31/17 ferrous sulfate 325 mg PO BID #0 tab 12/31/17 insulin aspart U-100 [Novolog See Label Instructions .ROUTE 12/31/17 Flexpen U-100 Insulin] .COMPLEX #0 ml insulin glargine [Lantus Solostar 30 units SUBCUT DAILY #0 ml 12/31/17 U-100 Insulin] lisinopril 10 mg PO DAILY #0 tab 12/31/17 melatonin 9 mg PO DAILY@0000 #0 tab 12/31/17 Previous Rx's Medication Instructions Recorded amlodipine 10 mg PO DAILY #0 tab 12/31/17 ammonium lactate See Label Instructions .ROUTE 12/31/17 .COMPLEX #0 tube amoxicillin-pot clavulanate 1 tab PO BID #19 tab 12/31/17 ascorbic acid (vitamin C) [Vitamin 500 mg PO BID #0 tab 12/31/17 C] carvedilol [Coreg] 6.25 mg PO BID #60 tab 12/31/17 clonidine HCl [Catapres] 0.3 mg PO TID #0 tab 12/31/17 ferrous sulfate 325 mg PO BID #0 tab 12/31/17 insulin aspart U-100 [Novolog See Label Instructions .ROUTE 12/31/17 Flexpen U-100 Insulin] .COMPLEX #0 ml insulin glargine [Lantus Solostar 30 units SUBCUT DAILY #0 ml 12/31/17 U-100 Insulin] lisinopril 10 mg PO DAILY #0 tab 12/31/17 melatonin 9 mg PO DAILY@0000 #0 tab 12/31/17 Allergies Allergy/AdvReac Type Severity Reaction Status Date / Time No Known Allergies Allergy Unverified 11/09/17 03:12 General Stated Complaint: Fever YVES: 2 Review of Systems Review of Systems All systems reviewed & are unremarkable except as noted in HPI and below Constitutional Reports body ache(s), Reports fatigue and Reports fever(s) Respiratory Denies cough Endocrine Reports fatigue [facility] Medical History Heme positive stool (Chronic) JESUS (acute kidney injury) (Acute) Sepsis (Acute) Pedal edema (Chronic) Chronic insomnia (Chronic) Anxiety (Chronic) Diabetes mellitus type 2, controlled (Chronic) Hypertension (Chronic) Chronic pain (Chronic) Hypothyroidism (Chronic) Obesity (Chronic) Back pain (Chronic 06/21/13) Inability to get out of bed (Chronic 06/21/13) Poor self care (Chronic 06/21/13) Chronic bipolar disorder (Chronic) CAD (coronary artery disease) (Chronic) Dyslipidemia (Chronic) Hypoandrogenism (Chronic) Rheumatoid arthritis (Chronic) Crohns disease (Chronic) Osteoarthritis of both knees (Chronic) Cholelithiasis (Chronic) Impaired mobility and ADLs (Chronic) Acute congestive heart failure (Chronic) Hemorrhagic cystitis (Chronic) Anemia (Chronic) Bipolar 1 disorder (Chronic) CAD (coronary artery disease) (Chronic) Chronic anxiety (Chronic) Chronic pain (Chronic) 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) Dyslipidemia (Chronic) Hypertension (Chronic) Social History housing: [facility] Smoking/Tobacco Use Status: Never Surgical History Arthroplasty of knee (Resolved 03/18/12) Fracture, Open Treatment (Resolved) Exam Const General: cooperative and ill appearing Orientation: alert and awake HENWA Head: normocephalic and atraumatic Mouth: moist mucous membranes and other (poor dentition) Eyes Conjunctivae: normal conjunctivae Sclera: normal sclerae EOM: EOM intact bilaterally Neck Neck: trachea midline and supple Resp Auscultation: clear to auscultation bilaterally, no rales, no rhonchi and no wheezes Cardio Jugular venous pressure: no JVD Rate: tachycardic Rhythm: regular rhythm GI Palpation: soft, not firm, no guarding, no masses, not rigid and tender ( diffuse mild) Skin Rashes: rashes noted (blotchy erythema RLE extending from lower leg to upper thigh) Neuro General: alert, awake, oriented x3 and tone normal Extrem General: edema (1+) Laterality: bilateral Psych Appearance: grossly normal Mental Status: mental status grossly normal Course Vital Signs Temperature 39.9 C H 12/23/17 21:11 Pulse 99 H 12/23/17 21:11 Respiratory Rate 27 H 12/23/17 21:11 Blood Pressure 141/63 H 12/23/17 21:11 Pulse Oximetry 96 12/23/17 21:11 Temperature 39.9 C H 12/23/17 21:11 Temperature Source Axillary 12/23/17 21:11 Pulse 99 H 12/23/17 21:11 Respiratory Rate 27 H 12/23/17 21:11 Respiratory Effort 12/23/17 21:18 Blood Pressure 141/63 H 12/23/17 21:11 Pulse Oximetry 96 12/23/17 21:11 Oxygen Delivery Method Room Air 12/23/17 21:11 Oxygen Flow Rate 0 12/23/17 21:11 Lab/Test Results Lab/Test Results: 12/23/17 21:32 Blood Blood Culture - Pending 12/23/17 21:28 Blood Blood Culture - Pending
[2017-12-23 21:43] LABS: Abs Immature Grans 0.11 k/cumm (0.0-0.09); Absolute Basophil Count 0.03 k/cumm (0.0-0.2); Absolute Eosinophil Count 0.63 k/cumm (0.0-0.7); Absolute Lymphocyte Count 0.88 k/cumm (1.2-3.4); Absolute Monocyte Count 0.85 k/cumm (0.11-0.7); Absolute Neutrophil Count 25.03 k/cumm (1.2-6.7); Basophils % 0.1; Eosinophils % 2.3; HGB 9.8 g/dL (13.5-17.5); Immature Grans % 0.4; Lymphocytes % 3.2; Mean Corp. HGB Concentration 29.7 g/dL (32.0-36.0); Mean Corpuscular Hemoglobin 21.4 pg (27.0-33.0); Mean Corpuscular Volume 72.1 fL (80-95); Mean Platelet Volume 9.2 fL (8.0-11.0); Monocytes % 3.1; Neutrophils % 90.9; Platelet Count 441 x1000/uL (130-400); RBC 4.58 m/cumm (4.50-6.00); RBC Distribution Width 18.9 % (11.8-14.1)
[2017-12-23 21:58] LABS: White Blood Cell Count 27.54 k/cumm (4.4-10.8)
[2017-12-23 22:06] LABS: Anisocytosis 3+; Diff Comment Diff Reviewed; Microcytosis 2+
[2017-12-23] MEDS: PIPERACILLIN/TAZO 4.5 GM in Normal Saline 100 ML IVPB (22:06)
[2017-12-23 22:07] LABS: ALT 12 U/L (12-78); AST 11 U/L (15-37); Albumin 2.1 g/dL (3.4-5.0); Alkaline Phosphatase 316 U/L (46-116); Anion Gap 9.9 mmol/L (3-11); BUN 27 mg/dL (7-18); Bilirubin, Total 0.3 mg/dL (0.2-1.0); CO2 25.1 mmol/L (21.0-32.0); Calcium 8.2 mg/dL (8.5-10.1); Chloride 104 mmol/L (98-107); Estimated GFR 29.35 (mL/min/1.73m2); Glucose 205 mg/dL (70-100); Sodium 139 mmol/L (136-145); Total Protein 7.6 g/dL (6.4-8.2)
--- NOTE | 2017-12-23 22:13 | DI.CT_ITS ---
SYMPTOMS/DIAGNOSIS: SEPSIS, RECENT CHOLECYSTECTOMY CT EXAMINATION OF THE CHEST, ABDOMEN AND PELVIS: CHEST: The study was carried out without contrast enhancement. There are small regions of atelectasis involving the lung bases. There is mild consolidation of the right lower lobe, which most likely represents compressive atelectasis. A small right pleural effusion is seen. There is no abnormality involving the heart. There are minimal atherosclerotic changes involving the aorta without evidence of an aneurysm. Calcified nodes are seen throughout the mediastinum. No lymphadenopathy is identified. Note is made of a chronic-appearing nonunited fracture of the anterior right glenoid, as well as bilateral degenerative changes involving the shoulders. Degenerative changes are also noted in the spine. Chronic fractures of the bilateral anterior ribs are demonstrated. Note is also made of what appears to represent a nonunited fracture of the sternum. The soft tissues are unremarkable. SUMMARY: Small right pleural effusion and region of consolidation involving the right lung base, which is likely on the basis of atelectasis. I cannot entirely exclude an acute pneumonitis in this patient. Note is made of sequelae of prior granulomatous disease. Chronic bilateral anterior rib fractures are noted. Also, chronic changes involving the glenoid and sternum are identified. Please see the above discussion. ABDOMEN AND PELVIS: The study was carried out without contrast enhancement. No definite acute findings involving the lung bases are seen. Please see the above discussion. The liver is mildly lobulated, findings suspicious for cirrhosis. A pigtail catheter is seen with coil formed in the gallbladder fossa. There are two ovoid densities within the gallbladder and the findings appear to represent calcified stones in a collapsed gallbladder. There is no evidence of a significant residual fluid collection. The pancreas is atrophic. There is mild splenomegaly. There adrenals are normal. The kidneys and ureters are normal. Note is made of a total colectomy with rectal resection. A right lower quadrant ileostomy is identified. The small bowel appears unremarkable. The patient is status post appendectomy. The bladder is unremarkable. The reproductive organs as visualized are unremarkable. There is no evidence of free air or free fluid in the intraperitoneal space. Note is made of bony ankylosis of the L2 and L3 vertebral bodies. Note is made of a 5.6 cm intramuscular lipoma involving anterior right thigh. There is no evidence of an abdominal aortic aneurysm. There is no evidence of lymphadenopathy. SUMMARY: A pigtail catheter is coiled in the gallbladder with a trace of residual fluid in this region. Two hyperdensities are noted in the gallbladder fossa, which are felt to represent gallstones. Note is also made of mild splenomegaly. There are findings involving the liver consistent with cirrhosis. Correlation with the patient's clinical status and laboratory tests are suggested.
[2017-12-23] MEDS: VANCOMYCIN 2,000 MG in Normal Saline 500 ML 250 MG IVPB (22:40)
--- NOTE | 2017-12-23 23:20 | DI.VRAD_ITS ---
EXAM: CT Chest Without Intravenous Contrast EXAM DATE/TIME: 12/23/2017 10:15 PM CLINICAL HISTORY: 57 years old, male; Signs and symptoms; Other: Sepsis, recent cholecystostomy; Additional info: W/o due to abnormal labs TECHNIQUE: Axial computed tomography images of the chest without intravenous contrast. All CT scans at this facility use at least one of these dose optimization techniques: automated exposure control; mA and/or kV adjustment per patient size (includes targeted exams where dose is matched to clinical indication); or iterative reconstruction. Coronal and sagittal reformatted images were created and reviewed. COMPARISON: CT ABD PELVIS WITH CONTRAST 10/19/2015 10:48 PM FINDINGS: Lungs: Bibasilar linear atelectasis noted. There is mild consolidation in the right lower lobe which likely represents compressive atelectasis but cannot exclude pneumonia. Pleural space: Small right pleural effusion. Heart: Normal. No cardiomegaly. No pericardial effusion. Aorta: Minimal atherosclerotic disease. No aneurysm. Lymph nodes: Calcified nodes are seen throughout the mediastinum. No pathologic size adenopathy. Bones/joints: Patient there is a chronic appearing nonunited fracture of the anterior right glenoid as well as bilateral degenerative changes in the shoulders. Multilevel degenerative changes throughout the spine. Chronic fractures of the bilateral anterior ribs. Old, united fracture of the sternum. Soft tissues: Unremarkable. IMPRESSION: Small right pleural effusion and consolidation at the right lung base which likely represents atelectasis but cannot exclude pneumonia. Sequela of prior granulomatous disease. Chronic fractures of the bilateral anterior ribs, right anterior glenoid and sternum. EXAM: CT Abdomen and Pelvis Without Intravenous Contrast EXAM DATE/TIME: 12/23/2017 10:15 PM CLINICAL HISTORY: 57 years old, male; Signs and symptoms; Other: Sepsis, recent cholescystectom; Additional info: W/o due to abnormal labs TECHNIQUE: Axial computed tomography images of the abdomen and pelvis without intravenous contrast. All CT scans at this facility use at least one of these dose optimization techniques: automated exposure control; mA and/or kV adjustment per patient size (includes targeted exams where dose is matched to clinical indication); or iterative reconstruction. Coronal and sagittal reformatted images were created and reviewed. COMPARISON: CT ABD PELVIS WITH CONTRAST 10/19/2015 10:48 PM FINDINGS: Lower thorax: No acute findings. ABDOMEN: Liver: Liver contour is lobular suspicious for cirrhosis. Gallbladder and bile ducts: A pigtail catheter is seen with coil formed in the gallbladder fossa. There are 2 ovoid densities in this region which appears to be calcified stones in a collapsed gallbladder . No significant residual fluid collection noted. Pancreas: Atrophic pancreas. Spleen: Mild splenomegaly. Adrenals: Normal. No mass. Kidneys and ureters: Normal. No hydronephrosis. Stomach and bowel: Total colectomy with rectal resection. Ileostomy ileostomy in the right lower quadrant. Small bowel caliber is normal. Appendix: Surgically absent. PELVIS: Bladder: Unremarkable as visualized. Reproductive: Unremarkable as visualized. ABDOMEN and PELVIS: Intraperitoneal space: Normal. No free air. No significant fluid collection. Bones/joints: There is bony ankylosis of the L2 and L3 vertebral bodies. Soft tissues: There is a 5.6 cm intramuscular lipoma in the anterior right thigh. Vasculature: Normal. No abdominal aortic aneurysm. Lymph nodes: No pathologic size nodes seen. IMPRESSION: Pigtail catheter coiled in the gallbladder fossa with trace residual fluid in this region. There are 2 hyperdensities in the gallbladder fossa which appeared to be stones in a contracted gallbladder. Correlate with history. Mild splenomegaly. Cirrhotic appearing liver. Correlate with LFTs. Dictated and Authenticated by: Whitley Manley MD. Ordering:ELSA AMBROSIO MD
[2017-12-23] MEDS: diphenhydrAMINE 25 MG CAP (23:57)
[2017-12-24] VITALS (33 sets, daily range): BP systolic 107–155; BP diastolic 52–82; PULSE 61–91; RESP 13–27; TEMP 36.3–37.4; O2SAT 94–100
--- NOTE | 2017-12-24 | W.PM.HP.N ---
Date of service: 12/24/17 Time of Service: 00:00 Assessment and Plan (1) Fever: Current visit: Yes Status: Acute Fever at this point I think the cellulitis is the likely source, though I would like to see a urine sample first. The chest findings could also be a pneumonia. Regardless, will cover with broad-spectrum antibiotics pending cultures. Patient has received vancomycin and Zosyn and this should cover adequately. Will otherwise continue usual medications as is with the following exceptions. I would hold the amlodipine in the event a septic picture emerges. We will also continue Lantus but hold on any scheduled short acting insulin and just cover with sliding scale until we see where the sugars settle out. History of Present Illness Chief Complaint: Fever Narrative: Patient is a 57 year-old male with innumerable medical problems. He is a resident of the [facility]. He comes in with 1 day of fever. In the emergency room initial evaluation of note for gross cellulitis of the right lower extremity, leukocytosis and CT of chest and abdomen showing atelectasis versus consolidation at the right base of the lung and no acute findings in the. Please note recent cholecystitis, nonsurgical candidate, treated with pigtail catheter. Only trace fluid noted in the gallbladder by CT. Patient was given doses of Zosyn and vancomycin and admitted for further evaluation and management. Review of Systems Review of Systems All systems reviewed & are unremarkable except as noted in HPI and below PFSH Medical History Heme positive stool (Chronic) JESUS (acute kidney injury) (Acute) Sepsis (Acute) Pedal edema (Chronic) Chronic insomnia (Chronic) Anxiety (Chronic) Diabetes mellitus type 2, controlled (Chronic) Hypertension (Chronic) Chronic pain (Chronic) Hypothyroidism (Chronic) Obesity (Chronic) Back pain (Chronic 06/21/13) Inability to get out of bed (Chronic 06/21/13) Poor self care (Chronic 06/21/13) Chronic bipolar disorder (Chronic) CAD (coronary artery disease) (Chronic) Dyslipidemia (Chronic) Hypoandrogenism (Chronic) Rheumatoid arthritis (Chronic) Crohns disease (Chronic) Osteoarthritis of both knees (Chronic) Cholelithiasis (Chronic) Impaired mobility and ADLs (Chronic) Acute congestive heart failure (Chronic) Hemorrhagic cystitis (Chronic) Anemia (Chronic) Bipolar 1 disorder (Chronic) CAD (coronary artery disease) (Chronic) Chronic anxiety (Chronic) Chronic pain (Chronic) 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) Dyslipidemia (Chronic) Hypertension (Chronic) Social History housing: senior care Smoking/Tobacco Use Status: Never Surgical History Arthroplasty of knee (Resolved 03/18/12) Fracture, Open Treatment (Resolved) Meds Home Medications Medication Instructions Recorded Confirmed Type acetaminophen [Acetaminophen Extra 500 mg PO BID 12/23/17 12/23/17 History Strength] amlodipine 5 mg PO DAILY 12/23/17 12/23/17 History aspirin [Aspirin Low Dose] 81 mg PO BID 12/23/17 12/23/17 History carbamazepine 100 mg PO TID 12/23/17 12/23/17 History clonidine HCl 0.3 mg PO BID 12/23/17 12/23/17 History cyanocobalamin (vitamin B-12) 1,000 mcg PO DAILY 12/23/17 12/23/17 History fentanyl 1 patch TRANSDERMAL Q72H 12/23/17 12/23/17 History folic acid 1 mg PO DAILY 12/23/17 12/23/17 History furosemide 40 mg PO DAILY 12/23/17 12/23/17 History gabapentin 800 mg PO TID 12/23/17 12/23/17 History insulin aspart U-100 [Novolog 50 unit SUBCUT QPM 12/23/17 12/23/17 History U-100 Insulin aspart] insulin glargine [Lantus U-100 40 unit SUBCUT BID 12/23/17 12/23/17 History Insulin] insulin lispro [Humalog U-100 40 unit SUBCUT DIRECTED 12/23/17 12/23/17 History Insulin] levothyroxine 50 mcg PO DAILY 12/23/17 12/23/17 History lidocaine 1 patch TOPICAL DAILY 12/23/17 12/23/17 History liraglutide [Victoza 2-Saleem] 1.2 mg SUBCUT DAILY 12/23/17 12/23/17 History loperamide 2 mg PO DAILY 12/23/17 12/23/17 History loperamide 2 mg PO QID PRN 12/23/17 12/23/17 History multivitamin with iron [One Daily 1 tab PO DAILY 12/23/17 12/23/17 History Multi-Vit w-Mineral] nortriptyline 25 mg PO DAILY 12/23/17 12/23/17 History omega 3-ubg-wis-fish oil [Fish Oil] 2 cap PO DAILY 12/23/17 12/23/17 History omeprazole 20 mg PO DAILY 12/23/17 12/23/17 History prednisone 10 mg PO DAILY 12/23/17 12/23/17 History risperidone 3 mg PO HS 12/23/17 12/23/17 History sertraline 25 mg PO DAILY 12/23/17 12/23/17 History trazodone 50 mg PO HS 12/23/17 12/23/17 History venlafaxine 75 mg PO TID 12/23/17 12/23/17 History Allergies Allergy/AdvReac Type Severity Reaction Status Date / Time No Known Allergies Allergy Unverified 11/09/17 03:12 Exam Narrative Exam Narrative: Blood pressure 141/63 pulse 99 respirations 27 temp 39.9 O2 sat 96%. HEENT of note for poor dentition. Neck is supple. Lung exam is limited as patient unwilling to reposition for exam from posterior but from anterior lungs appear generally clear. Heart is regular rate and rhythm with 1/6 systolic murmur best heard at the apex. Abdomen is soft and nontender. Colostomy is draining and the pigtail catheter from the gallbladder is draining as well. exam shows no testicular swelling or tenderness. Rectal exams deferred extremities there is an extensive area of erythema extending from the mid negro to the mid thigh, this area is warm and tender and somewhat indurated. Neurological exam patient is oriented and lucid and moves all 4 extremities. Results Labs : 12/23/17 21:28 12/23/17 21:28 Laboratory Results - last 24 hr 12/23/17 12/23/17 12/23/17 21:28 21:28 21:28 WBC 27.54 H* RBC 4.58 Hgb 9.8 L Hct 33.0 L MCV 72.1 L MCH 21.4 L MCHC 29.7 L RDW 18.9 H Plt Count 441 H MPV 9.2 Immature Gran % 0.4 Neutrophils % 90.9 Lymphocytes % 3.2 Monocytes % 3.1 Eosinophils % 2.3 Basophils % 0.1 Absolute Neutrophils 25.03 H Absolute Lymphocytes 0.88 L Absolute Monocytes 0.85 H Absolute Eosinophils 0.63 Absolute Basophils 0.03 Differential Comment Diff reviewed RBC Morphology See below Anisocytosis 3+ Microcytosis 2+ Sodium 139 Potassium 4.0 Chloride 104 Carbon Dioxide 25.1 Anion Gap 9.9 BUN 27 H Creatinine 2.30 H Estimated GFR/1.73 m2 29.35 Glucose 205 H D Lactate 1.2 Calcium 8.2 L Total Bilirubin 0.3 AST 11 L ALT 12 Alkaline Phosphatase 316 H Total Protein 7.6 Albumin 2.1 L Last Vital Signs Temp 39.9 C H 12/23/17 21:11 Pulse 99 H 12/23/17 21:11 Resp 27 H 12/23/17 21:11 BP 141/63 H 12/23/17 21:11 Pulse Ox 96 12/23/17 21:11
[2017-12-24 00:19] LABS: Bilirubin Negative (Negative); Blood Moderate (Negative); Clarity Cloudy; Glucose Negative (Negative); Ketones Negative (Negative); Leukocyte Esterase Large (Negative); Nitrite Negative (Negative); Specific Gravity 1.025 (1.005-1.025); Urobilinogen 0.2 EU/dL (Up TO 0.2); pH 5.5 (5-8)
[2017-12-24 00:31] LABS: WBC >50 HPF (0-5)
[2017-12-24 00:32] LABS: C & S Indicated? Yes
[2017-12-24] MEDS: PIPERACILLIN/TAZO 3.375 GM in Normal Saline 50 ML IVPB ×4 (04:53→21:47)
[2017-12-24] MEDS: Levothyroxine 50 MCG TAB PO (06:31)
[2017-12-24 08:04] LABS: HCT 32.7 % (40.0-50.0); HGB 9.8 g/dL (13.5-17.5); Mean Corpuscular Hemoglobin 21.7 pg (27.0-33.0); Mean Corpuscular Volume 72.5 fL (80-95); Mean Platelet Volume 10.6 fL (8.0-11.0); Platelet Count 432 x1000/uL (130-400); RBC 4.51 m/cumm (4.50-6.00); RBC Distribution Width 19.1 % (11.8-14.1); White Blood Cell Count 23.37 k/cumm (4.4-10.8)
[2017-12-24 08:24] LABS: BUN 25 mg/dL (7-18); Calcium 8.2 mg/dL (8.5-10.1); Chloride 105 mmol/L (98-107); Glucose 168 mg/dL (70-100); Potassium 4.9 mmol/L (3.5-5.1); Sodium 138 mmol/L (136-145)
[2017-12-24 08:27] LABS: Absolute Lymphocyte Count 1.87 k/cumm (1.2-3.4); Anisocytosis 2+; Atypical Lymphocytes % 1; Diff Comment Manual Differential; Hypochromasia 2+; Microcytosis 3+; Ovalocytes 2+
[2017-12-24 08:28] LABS: Polychromasia Present
[2017-12-24 08:47] LABS: Anion Gap 10.7 mmol/L (3-11); CO2 22.3 mmol/L (21.0-32.0); CREATININE 2.08 mg/dL (0.70-1.30); Estimated GFR 32.96 (mL/min/1.73m2)
--- NOTE | 2017-12-24 09:35 | PDOC.CMIN ---
Care Management Initial Assess REASON FOR HOSPITALIZATION:: Fever PAST MEDICAL HISTORY/PAST SURGICAL HISTORY:: recent hospitalization for sepsis; Group C strep bacteremia and E. Fecalis UTI, RA on chronic steroid therapy, CKD, , bipolar, anxiety, arthrititis, DM, HTN, CAD. 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 Brendan has a sister, Lian Hardy (P#[phone])who lives in [facility] and though they have limited contact via phone every couple of weeks-she is his only identified family support and responded in person upon Brendan's last admission when he coded and required CPR and was later air lifted to [facility] via DART. Brendan enjoys reading and watching TV. CURRENT FUNCTIONAL STATUS:: Brendan was sleeping soundly when CM attempted to meet with him; CM will continue to follow. ADVANCE DIRECTIVES:: COLST on file. Has patient been provided with information about the portal?: Yes Did the patient sign up for the portal?: No CODE STATUS:: Full Code INSURANCE COVERAGE / FINANCIAL ISSUES:: Medicaid. Medicare CURRENT HOME/COMMUNITY SERVICES/EQUIPMENT:: Brendan is a resident at the [facility]-the facility manages his service and equipment needs. PRIMARY CARE PHYSICIAN:: Anne Horowitz DO: Mon[place] Mason at the [facility] POTENTIAL DISCHARGE NEEDS:: Coordinated return to [facility]. CM spoke with Isela of the [facility] who requested updates when available. PATIENT/FAMILY EDUCATION NEEDS:: Review of instructions. ANTICIPATED BARRIERS TO DISCHARGE:: IV ABX course-dependent on duration and frequency-patient re-admitted with sepsis TRANSPORTATION:: W/C van PLAN:: Brendan will be intubated and continue to be treated in the ICU, CM will continue to follow-monitor clincial status-and support Brendan and his family as needed.
[2017-12-24] MEDS: Normal Saline Flush 10 ML SYR IVP (09:44)
[2017-12-24] MEDS: Venlafaxine 75 MG TAB PO ×3 (09:45→20:44)
[2017-12-24] MEDS: amLODIPine 5 MG TAB PO (09:45)
[2017-12-24] MEDS: Omega-3 Fatty Acids 1000 MG CAP 2000 MG PO (09:45)
[2017-12-24] MEDS: Gabapentin 800 MG TAB PO ×3 (09:45→20:44)
[2017-12-24] MEDS: Aspirin E.C. 81 MG TABEC PO ×2 (09:45→20:44)
[2017-12-24] MEDS: Acetaminophen 500 MG TAB PO ×2 (09:50→20:44)
[2017-12-24] MEDS: carBAMazepine 100 MG CHEW PO ×3 (09:50→20:44)
[2017-12-24] MEDS: Sertraline 25 MG TAB PO (09:50)
[2017-12-24] MEDS: Folic Acid 1 MG TAB PO (09:50)
[2017-12-24] MEDS: Cyanocobalamin 500 MCG TAB 1000 MCG PO (09:51)
[2017-12-24] MEDS: cloNIDine 0.1 MG TAB 0.3 MG PO ×2 (09:51→20:44)
[2017-12-24] MEDS: Loperamide 2 MG CAP PO (09:51)
[2017-12-24] MEDS: Multivitamin w/Minerals TAB 1 TAB PO (09:52)
[2017-12-24] MEDS: Lidocaine 5% Patch 1 PATCH TP (09:52)
[2017-12-24] MEDS: Insulin Glargine 300 UNITS/3 ML PEN 40 UNITS SC ×2 (09:56→20:45)
[2017-12-24] MEDS: Insulin Aspart 300 UNITS/3 ML PEN SC ×3 (09:58→17:22)
[2017-12-24] MEDS: Pantoprazole 40 MG VIAL IVP (09:59)
[2017-12-24] MEDS: Hydrocortisone SOD SUC. 100 MG VIAL 50 MG IVP ×3 (09:59→23:09)
[2017-12-24] MEDS: Heparin 5,000 UNITS/ML VIAL 5000 UNITS SC ×3 (09:59→23:11)
[2017-12-24] MEDS: Normal Saline 1,000 ML 125 ML IV ×2 (10:25→21:46)
--- NOTE | 2017-12-24 11:24 | PHARADMIT ---
Addendum entered by Guido Medina III 12/30/17 15:58: Pharmacy Note Subjective Foot X-ray today. Objective BP-153/80 VS-OK Mag-1.7 WBC-12.07 H&H -8.34/28.9 FSBS-193 Wgt-111.3 kg Assessment Vancomycin trough 26.7, dose held, restart 12/30@1999 at 1gm iV q24hrs. IV steroid to Prednisone. [facility]. Original Note: Addendum entered by Isaura Cifuentes 12/29/17 11:52: Pharmacy Note Subjective PIP/TAZO AND Vanco continue day#6 for ? cellulitis of LE , awaiting podiatry consult Objective BP 190/86 Assessment hydrocortisone IV starting to taper, amlodipine dose increased Plan watch BP/HR with med changes Original Note: Addendum entered by Khalida Church 12/28/17 11:34: Pharmacy Note Subjective Refused PT, itchy per nursing Objective BP 159/60, weight 3.6kg, Mag 1.7, H/H 8.2/28.0, BG 130, SCr up 2.09 C.Diff negative Micro urine: Sandra Micro blood: no growth Assessment Lac-hydrin lotion for itching, Vit C, Ferrous sulfate added Fentanyl patch dc'd yesterday...was oversedated yesterday Gabapentin dose increased to 600mg po TID for chronic pain, also has RA but on IV steroids Lantus decreased from 40u BID to 30u QD for low BG yesterday Mag 1gram IV x1 dose today Pt's own Victoza dc'd Protonix IV to oral Vanco dose is 1gram IV q18h, trough needed 12/30/17 (not ordered at this time) Plan Zosyn/Vanco continue day#5 for ? cellulitis of LE, podiatry consult Original Note: Addendum entered by Guido Medina III 12/26/17 16:37: Pharmacy Note Subjective Vancomycin trough VERY high (30.7) dose held, and adjusted to Q18HRS starting 12/26/17 @1400 MD still looking for sepsis source, may be from right Toe wound. Blood cultures negative Looking for possible fungal infection. Still scratching alot. Objective VS-OK SCr-2.10 (up) WBC- 11.36 H&H-8.3/27.9 Plts-442 FSBS-200 BG-222 BM yesterday Assessment Vancomycin & Zoyn continue, Insulin adjusted IV Solu-medrol to daily. Plan Watch for urine clture results, and CT scan Original Note: Addendum entered by Guido Medina III 12/25/17 16:07: Pharmacy Note Subjective Patient from the [facility] with multiple medical conditions.Recently here for sepsis. Has Ra, venous stasis, not cellulitis, Patient is alway itching/scratching. Objective VS-OK SCr-1.91 WBC-10.29 H&H-8.4/28.8 Plts-426 FSBS-143 Lytes-OK Wgt-111.3 kg BM today Assessment Vancomycin for pneumonia & Zosyn empirically for possible UTI, On Solu-Cortef taper. Patient's Own Victoza labelled, Insulin adjusted. Plan [facility]. Original Note: Admission Pharmacy Clinical Review FEVER, ?Cellulitis RL extremity Code Status Full Code Current Weight 110 kg Renally Cleared and Narrow Therapeutic Index Meds CrCl~43ml/min QTc Value / Action Taken BP Control, Fever BP 144/65 Afebrile now, Tmax 39.9 Electrolytes reviewed K+ 4.9 DVT Prophylaxis Heparin SC Opiate Usage / Scheduled Bowel Regimen Ordered Fentanyl patch-came in with one on Plt/SCr for Heparin / Enoxaparin Plt 432 SCr 2.08 INR for Warfarin H/H stable, WBC/Bands H/H 9.8/32.7 WBC 23.37 (down from 27.54) IV Solucortef Antibiotic appropriateness Zosyn, Vanco, treating ? HCAP or cellulitis pending cultures Cultures and Sensitivities Blood, urine and nare pending Surgical ABX d/c within 24 hr DM control / Insulin Dosing BG 168 (Lantus/Novolog scale) Heart Failure (Check EF%) (ARYA's, B-Block, Diuretics) Amlodipine, Clonidine oral, Furosemide IV to PO Switch Home Meds Reviewed Pt's own Victoza...not obtained at time of this note Home Meds Not Ordered [facility] () [facility]: ?stelectasis/Pneumonia
--- NOTE | 2017-12-24 12:00 | INITIAL_ITS ---
Care Management Initial Assess REASON FOR HOSPITALIZATION:: Fever PAST MEDICAL HISTORY/PAST SURGICAL HISTORY:: recent hospitalization for sepsis; Group C strep bacteremia and E. Fecalis UTI, RA on chronic steroid therapy, CKD , , bipolar, anxiety, arthrititis, DM, HTN, CAD. 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 Brendan has a sister, Lian Hardy (P#[phone])who lives in [facility] and though they have limited contact via phone every couple of weeks-she is his only identified family support and responded in person upon Brendan's last admission when he coded and required CPR and was later air lifted to [facility] [place] [facility]. Brendan enjoys reading and watching TV. CURRENT FUNCTIONAL STATUS:: Brendan was sleeping soundly when CM attempted to meet with him; CM will continue to follow. ADVANCE DIRECTIVES:: COLST on file. Has patient been provided with information about the portal?: Yes Did the patient sign up for the portal?: No CODE STATUS:: Full Code INSURANCE COVERAGE / FINANCIAL ISSUES:: Medicaid. Medicare CURRENT HOME/COMMUNITY SERVICES/EQUIPMENT:: Brendan is a resident at the [facility]-the facility manages his service and equipment needs. PRIMARY CARE PHYSICIAN:: Anne Horowitz DO: Educational Technology Coordinator at the [facility] POTENTIAL DISCHARGE NEEDS:: Coordinated return to [facility]. CM spoke with Isela of the [facility] who requested updates when available. PATIENT/FAMILY EDUCATION NEEDS:: Review of instructions. ANTICIPATED BARRIERS TO DISCHARGE:: IV ABX course-dependent on duration and frequency-patient re-admitted with sepsis TRANSPORTATION:: W/C van PLAN:: Brendan will be intubated and continue to be treated in the ICU, CM will continue to follow-monitor clincial status-and support Brendan and his family as needed.
[2017-12-24] MEDS: VANCOMYCIN 1,000 MG in Normal Saline 250 ML 166.667 MG IVPB (12:59)
[2017-12-24] MEDS: Patch Removal 1 EACH TP (21:51)
[2017-12-24] MEDS: risperiDONE 1 MG TAB 3 MG PO (23:15)
[2017-12-24] MEDS: traZODone 50 MG TAB PO (23:15)
[2017-12-25] VITALS (20 sets, daily range): BP systolic 124–156; BP diastolic 64–81; PULSE 59–82; RESP 16–26; TEMP 36.3–37.1; O2SAT 94–95
[2017-12-25] MEDS: VANCOMYCIN 1,000 MG in Normal Saline 250 ML 167 MG IVPB ×2 (01:41→16:53)
[2017-12-25] MEDS: PIPERACILLIN/TAZO 3.375 GM in Normal Saline 50 ML IVPB ×4 (03:14→21:38)
[2017-12-25] MEDS: Levothyroxine 50 MCG TAB PO (06:44)
[2017-12-25 07:40] LABS: Abs Immature Grans 0.04 k/cumm (0.0-0.09); Absolute Basophil Count 0.04 k/cumm (0.0-0.2); Absolute Eosinophil Count 0.11 k/cumm (0.0-0.7); Absolute Lymphocyte Count 0.96 k/cumm (1.2-3.4); Absolute Monocyte Count 0.38 k/cumm (0.11-0.7); Absolute Neutrophil Count 8.76 k/cumm (1.2-6.7); Basophils % 0.4; Eosinophils % 1.1; HCT 28.8 % (40.0-50.0); HGB 8.4 g/dL (13.5-17.5); Immature Grans % 0.4; Lymphocytes % 9.3; Mean Corp. HGB Concentration 29.2 g/dL (32.0-36.0); Mean Corpuscular Hemoglobin 21.4 pg (27.0-33.0); Mean Corpuscular Volume 73.3 fL (80-95); Mean Platelet Volume 9.9 fL (8.0-11.0); Monocytes % 3.7; Neutrophils % 85.1; Platelet Count 426 x1000/uL (130-400); RBC 3.93 m/cumm (4.50-6.00); RBC Distribution Width 18.8 % (11.8-14.1); White Blood Cell Count 10.29 k/cumm (4.4-10.8)
[2017-12-25 08:03] LABS: Anion Gap 11.9 mmol/L (3-11); BUN 22 mg/dL (7-18); CO2 21.1 mmol/L (21.0-32.0); CREATININE 1.91 mg/dL (0.70-1.30); Calcium 8.4 mg/dL (8.5-10.1); Chloride 107 mmol/L (98-107); Estimated GFR 36.37 (mL/min/1.73m2); Glucose 179 mg/dL (70-100); Potassium 4.3 mmol/L (3.5-5.1); Sodium 140 mmol/L (136-145)
[2017-12-25] MEDS: Pantoprazole 40 MG VIAL IVP (08:30)
[2017-12-25] MEDS: Cyanocobalamin 500 MCG TAB 1000 MCG PO (08:30)
[2017-12-25] MEDS: Normal Saline Flush 10 ML SYR IVP (08:30)
[2017-12-25] MEDS: Folic Acid 1 MG TAB PO (08:34)
[2017-12-25] MEDS: Venlafaxine 75 MG TAB PO ×3 (08:34→21:19)
[2017-12-25] MEDS: Multivitamin w/Minerals TAB 1 TAB PO (08:34)
[2017-12-25] MEDS: Aspirin E.C. 81 MG TABEC PO ×2 (08:34→21:20)
[2017-12-25] MEDS: Omega-3 Fatty Acids 1000 MG CAP 2000 MG PO (08:34)
[2017-12-25] MEDS: carBAMazepine 100 MG CHEW PO ×3 (08:35→21:20)
[2017-12-25] MEDS: cloNIDine 0.1 MG TAB 0.3 MG PO ×2 (08:35→21:19)
[2017-12-25] MEDS: amLODIPine 5 MG TAB PO (08:36)
[2017-12-25] MEDS: fentaNYL 50 MCG PATCH TD (08:37)
[2017-12-25] MEDS: Acetaminophen 500 MG TAB PO ×2 (08:37→21:20)
[2017-12-25] MEDS: Lidocaine 5% Patch 1 PATCH TP (08:38)
[2017-12-25] MEDS: Heparin 5,000 UNITS/ML VIAL 5000 UNITS SC ×3 (08:39→23:58)
[2017-12-25] MEDS: Insulin Aspart 300 UNITS/3 ML PEN SC ×3 (08:51→16:52)
[2017-12-25] MEDS: Insulin Glargine 300 UNITS/3 ML PEN 40 UNITS SC ×2 (08:52→21:28)
[2017-12-25] MEDS: Gabapentin 800 MG TAB PO ×3 (08:55→21:19)
[2017-12-25] MEDS: Loperamide 2 MG CAP PO (08:56)
[2017-12-25] MEDS: Sertraline 25 MG TAB PO (08:56)
[2017-12-25] MEDS: Normal Saline 1,000 ML 125 ML IV (08:58)
[2017-12-25] MEDS: Hydrocortisone SOD SUC. 100 MG VIAL 50 MG IVP ×2 (10:47→21:30)
--- NOTE | 2017-12-25 11:48 | CHAPLAIN ---
I visited with Brendan yesterday (12/24) with Phyllis Colon from [employer]. 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 Brendan told us that Maldonado Ford, from [facility], visits him a couple of times a month, and he appreciates that. He still used his iPad that Hannah purchased for him. He is interested in looking up information about properties for sale in [place]. We suggested he look up [employer] ([place]) when he gets [place] [facility] [place]. Brendan said [place] to [place] facility in [place] because it's closer to family members.
--- NOTE | 2017-12-25 14:19 | PDOC.CMPRO ---
- If Service Date Differs Date of service: 12/25/17 Time of Service: 14:19 Care Management Progress Note S/O: Brendan is sitting up in his chair today when this medical writer visits. KATELYN spoke with MACARENA Weaver [facility], in regards to Brendan's Victoza. KATELYN requested that [facility] bring in Victoza from [facility] as [facility] does not have this medication. Meg requested a medical update as well as an estimated DC date, KATELYN transferred the phone call to MACARENA Harris, to discuss with Meg Cardona's current presentation. A: 57 y/o male admitted 12/24/17 for Fever P: Brendan will return to [facility] once medically cleared. He will transport via W/C van when ready.
--- NOTE | 2017-12-25 14:34 | W.PM.PROGNOT ---
Assessment and Plan (1) Fever: Current visit: Yes Status: Acute Mr. Corley was hospitalized recently, with evidence of enterococcus faecalis UTI as well as blood cultures positive for group C strep as etiology. He was also recently treated for Cholecystitis with antibiotics and catheter placement. Current Blood cultures remain negative, and Urine Culture only growing Sandra Albicans. CT chest, abdomen, and pelvis without any evidence of pathology other than likely atelectasis. Patient has however defervesced and with leukocytosis resolved on broad spectrum antibiotics. Unsure of source of current infection. Imaging does not appear to show any acute pathology, and urine culture growing Sandra which may be colonization (CT without evidence of hydro, fungus ball, or other abnormality). No evidence of cellulitis currently, and blood cultures remain negative. Discussed case with ID - will repeat urinalysis with new ruiz cath, and if recurrence of sandra consider treatment. For now continue antibiotics, and check for evidence of increased output from ostomy for C.Ditt (although patient is currently improved) as well as possible imaging of right toe following wound care evaluation. (2) Diabetes mellitus type 2, controlled: Current visit: Yes Status: Chronic Continue basal insulin, sliding scale coverage, and ADA diet. (3) Hypertension: Current visit: Yes Status: Chronic Continue CCB. Also on Clonidine. Also on diuretic therapy - will restart today. (4) Chronic pain: Current visit: Yes Status: Chronic Continue home regimen. (5) CAD (coronary artery disease): Current visit: Yes Status: Chronic Appears quiescent. (6) Rheumatoid arthritis: Current visit: No Status: Chronic Maintained chronically on Humira as an outpatient, as well as daily prednisone therapy. Wean stress dose steroids quickly down to baseline steroid dose. (7) Crohns disease: Current visit: Yes Status: Chronic Status post total colectomy, with ostomy in place that appears to be functioning well. (8) DVT prophylaxis: Current visit: No Status: Acute Continue Heparin SC. Also on PPI for GI prophylaxis. Subjective Interval history since last seen: 57 year old man with past medical history significant for RA on chronic steroid therapy, CKD, DM, and recent hospitalization for sepsis admitted from [facility] emergency department on 12/24/2017 with reported fever and evidence of UTI. Mr. Corley was recently hospitalized here at [facility] with sepsis. He has a history of Group C strep bacteremia and E. Fecalis UTI, and following his discharge returned to the hospital septic and suffered a cardiopulmonary arrest necessitating [place] [facility] He was treated for Choleycystitis, and as he is a nonsurgical candidate, he was treated conservatively with a pigtail catheter and antibiotics. He is chronically a resident at the [facility], noted to be febrile and sent in for evaluation. Work-up in the ED was significant for a temperature of 39.9, borderline tachycardia, and leukocytosis. Imaging with CT was relevant for likely atelectasis at the right lung base (with pneumonia not excluded) but without other significant pathology. The Pigtail catheter was noted to be in the gallbladder fossa, with trace fluid and 2 stones in the contracted gallbladder. Urinalysis showed evidence for a UTI, but culture only growing Sandra at this time. The patient remains on broad spectrum antibiotics with rapid resolution of his leukocytosis. His cultures remain negative. No overnight events reported. Remains afebrile. Exam Narrative Exam Narrative: General: Patient appears comfortable, sleeping at time of exam. NAD. Morbidly obese. Neck: Supple CV: Regular, nontachycardic, S1S2. Pulmonary: Clear to auscultation bilaterally, no crackles, wheezing, or rhonchi on limited anterior and lateral exam. Abdomen: + Bowel Sounds, soft, nontender, nondistended Vascular: B/l LE edema with hyperpigmentation of bilateral shins. Objective Objective Clinical Data: Abnormal lab results 12/25/17 12/25/17 Range/Units 06:32 06:32 RBC 3.93 L (4.50-6.00) m/cumm Hgb 8.4 L (13.5-17.5) g/dL Hct 28.8 L (40.0-50.0) % MCV 73.3 L (80-95) fL MCH 21.4 L (27.0-33.0) pg MCHC 29.2 L (32.0-36.0) g/dL RDW 18.8 H (11.8-14.1) % Plt Count 426 H (130-400) x1000/uL Absolute Neutrophils 8.76 H (1.2-6.7) k/cumm Absolute Lymphocytes 0.96 L (1.2-3.4) k/cumm Anion Gap 11.9 H (3-11) mmol/L BUN 22 H (7-18) mg/dL Creatinine 1.91 H (0.70-1.30) mg/dL Glucose 179 H (70-100) mg/dL Calcium 8.4 L (8.5-10.1) mg/dL Vital Signs Temperature 37.1 C 12/25/17 13:37 Temperature Source Temporal Artery Scan 12/25/17 13:37 Pulse 75 12/25/17 14:01 Pulse 75 12/25/17 14:01 Respiratory Rate 20 12/25/17 14:01 Respiratory Effort 12/25/17 13:37 Respiratory Depth Normal 12/25/17 13:37 Respiratory Pattern Normal 12/25/17 13:37 Blood Pressure 144/71 H 12/25/17 14:01 Blood Pressure Mean 86 12/25/17 14:01 Blood Pressure Position Supine 12/25/17 13:37 Pulse Oximetry 94 L 12/25/17 03:15 Oxygen Delivery Method Room Air 12/25/17 13:37 Oxygen Flow Rate 0 12/25/17 13:37 Pain Level 0 12/25/17 13:37 Intake & Output 12/24/17 12/25/17 12/25/17 23:59 11:59 23:59 Intake Total 2151.250 / 2151.250 1652.083 / 1652.083 300 / 300 Output Total 1200 / 1200 1425 / 1425 550 / 550 Balance 951.250 / 951.250 227.083 / 227.083 -250 / -250 Weight 111.3 kg Intake: IV 1331.250 / 8829.380 0714.083 / 1052.083 Oral 820 / 820 600 / 600 300 / 300 Output: Drainage 250 / 250 600 / 600 100 / 100 Right Lower Abdomen 250 / 250 600 / 600 100 / 100 Urine 650 / 650 425 / 425 250 / 250 Stool 300 / 300 400 / 400 200 / 200 Other: Urine Color Yellow Yellow Urine Appearance Cloudy Cloudy Comment ruiz in place ruiz in place ruiz in place Stool Characteristics Liquid Green Laboratory Results WBC 10.29 k/cumm (4.4-10.8) D 12/25/17 06:32 RBC 3.93 m/cumm (4.50-6.00) L 12/25/17 06:32 Hgb 8.4 g/dL (13.5-17.5) L 12/25/17 06:32 Hct 28.8 % (40.0-50.0) L 12/25/17 06:32 MCV 73.3 fL (80-95) L 12/25/17 06:32 MCH 21.4 pg (27.0-33.0) L 12/25/17 06:32 MCHC 29.2 g/dL (32.0-36.0) L 12/25/17 06:32 RDW 18.8 % (11.8-14.1) H 12/25/17 06:32 Plt Count 426 x1000/uL (130-400) H 12/25/17 06:32 MPV 9.9 fL (8.0-11.0) 12/25/17 06:32 Immature Gran % 0.4 12/25/17 06:32 Neutrophils % 85.1 12/25/17 06:32 Lymphocytes % 9.3 12/25/17 06:32 Monocytes % 3.7 12/25/17 06:32 Eosinophils % 1.1 12/25/17 06:32 Basophils % 0.4 12/25/17 06:32 Absolute Neutrophils 8.76 k/cumm (1.2-6.7) H 12/25/17 06:32 Absolute Lymphocytes 0.96 k/cumm (1.2-3.4) L 12/25/17 06:32 Absolute Monocytes 0.38 k/cumm (0.11-0.7) 12/25/17 06:32 Absolute Eosinophils 0.11 k/cumm (0.0-0.7) 12/25/17 06:32 Absolute Basophils 0.04 k/cumm (0.0-0.2) 12/25/17 06:32 Differential Comment Manual differential 12/24/17 07:05 Atypical Lymphocytes 1 12/24/17 07:05 RBC Morphology See below 12/24/17 07:05 Polychromasia Present 12/24/17 07:05 Hypochromasia 2+ 12/24/17 07:05 Anisocytosis 2+ 12/24/17 07:05 Microcytosis 3+ 12/24/17 07:05 Ovalocytes 2+ 12/24/17 07:05 Sodium 140 mmol/L (136-145) 12/25/17 06:32 Potassium 4.3 mmol/L (3.5-5.1) 12/25/17 06:32 Chloride 107 mmol/L (98-107) 12/25/17 06:32 Carbon Dioxide 21.1 mmol/L (21.0-32.0) 12/25/17 06:32 Anion Gap 11.9 mmol/L (3-11) H 12/25/17 06:32 BUN 22 mg/dL (7-18) H 12/25/17 06:32 Creatinine 1.91 mg/dL (0.70-1.30) H 12/25/17 06:32 Estimated GFR/1.73 m2 36.37 (mL/min/1.73m2) 12/25/17 06:32 Glucose 179 mg/dL (70-100) H 12/25/17 06:32 Lactate 1.2 mmol/L (0.6-1.4) 12/23/17 21:28 Calcium 8.4 mg/dL (8.5-10.1) L 12/25/17 06:32 Total Bilirubin 0.3 mg/dL (0.2-1.0) 12/23/17 21:28 AST 11 U/L (15-37) L 12/23/17 21:28 ALT 12 U/L (12-78) 12/23/17 21:28 Alkaline Phosphatase 316 U/L (46-116) H 12/23/17 21:28 Total Protein 7.6 g/dL (6.4-8.2) 12/23/17 21:28 Albumin 2.1 g/dL (3.4-5.0) L 12/23/17 21:28 Urine Color Yellow (Yellow) 12/24/17 00:02 Urine Clarity Cloudy 12/24/17 00:02 Urine pH 5.5 (5-8) 12/24/17 00:02 Ur Specific [place] 1.025 (1.005-1.025) 12/24/17 00:02 Urine Protein 100 mg/dL (Negative) H 12/24/17 00:02 Urine Ketones Negative mg/dL (Negative) 12/24/17 00:02 Urine Blood Moderate (Negative) H 12/24/17 00:02 Urine Nitrite Negative (Negative) 12/24/17 00:02 Urine Bilirubin Negative (Negative) 12/24/17 00:02 Urine Urobilinogen 0.2 EU/dL (Up TO 0.2) 12/24/17 00:02 Ur Leukocyte Esterase Large (Negative) H 12/24/17 00:02 Urine RBC (0-2) 12/24/17 00:02 Urine WBC >50 HPF (0-5) 12/24/17 00:02 Ur Epithelial Cells HPF (Negative) 12/24/17 00:02 Urine Crystals Not Applicable 12/24/17 00:02 Urine Bacteria HPF (Negative) 12/24/17 00:02 Urine Mucus Not Applicable 12/24/17 00:02 Ur Culture Indicated? Yes 12/24/17 00:02 Urine Glucose Negative mg/dL (Negative) 12/24/17 00:02
--- NOTE | 2017-12-25 14:36 | CMPROGNOTE_ITS ---
- If Service Date Differs Date of service: 12/25/17 Time of Service: 14:19 Care Management Progress Note S/O: Brendan is sitting up in his chair today when this medical underwriter visits. KATELYN spoke with MACARENA Weaver [facility], in regards to Brendan's Victoza. KATELYN requested that [facility] bring in Victoza from [facility] as [facility] does not have this medication. Meg requested a medical update as well as an estimated DC date , KATELYN transferred the phone call to MACARENA Harris, to discuss with Meg Cardona's current presentation. A: 57 y/o male admitted 12/24/17 for Fever P: Brendan will return to [facility] once medically cleared. He will transport via W /C van when ready.
--- NOTE | 2017-12-25 14:45 | PGE_ITS ---
Assessment and Plan (1) Fever: Current visit: Yes Status: Acute Mr. Corley was hospitalized recently, with evidence of enterococcus faecalis UTI as well as blood cultures positive for group C strep as etiology. He was also recently treated for Cholecystitis with antibiotics and catheter placement. Current Blood cultures remain negative, and Urine Culture only growing Sandra Albicans. CT chest, abdomen, and pelvis without any evidence of pathology other than likely atelectasis. Patient has however defervesced and with leukocytosis resolved on broad spectrum antibiotics. Unsure of source of current infection. Imaging does not appear to show any acute pathology, and urine culture growing Sandra which may be colonization ( CT without evidence of hydro, fungus ball, or other abnormality). No evidence of cellulitis currently, and blood cultures remain negative. Discussed case with ID - will repeat urinalysis with new ruiz cath, and if recurrence of sandra consider treatment. For now continue antibiotics, and check for evidence of increased output from ostomy for C.Ditt (although patient is currently improved) as well as possible imaging of right toe following wound care evaluation. (2) Diabetes mellitus type 2, controlled: Current visit: Yes Status: Chronic Continue basal insulin, sliding scale coverage, and ADA diet. (3) Hypertension: Current visit: Yes Status: Chronic Continue CCB. Also on Clonidine. Also on diuretic therapy - will restart today. (4) Chronic pain: Current visit: Yes Status: Chronic Continue home regimen. (5) CAD (coronary artery disease): Current visit: Yes Status: Chronic Appears quiescent. (6) Rheumatoid arthritis: Current visit: No Status: Chronic Maintained chronically on Humira as an outpatient, as well as daily prednisone therapy. Wean stress dose steroids quickly down to baseline steroid dose. (7) Crohns disease: Current visit: Yes Status: Chronic Status post total colectomy, with ostomy in place that appears to be functioning well. (8) DVT prophylaxis: Current visit: No Status: Acute Continue Heparin SC. Also on PPI for GI prophylaxis. Subjective Interval history since last seen: 57 year old man with past medical history significant for RA on chronic steroid therapy, CKD, DM, and recent hospitalization for sepsis admitted from [facility] emergency department on 2017 with reported fever and evidence of UTI. Mr. Corley was recently hospitalized here at [facility] with sepsis. He has a history of Group C strep bacteremia and E. Fecalis UTI, and following his discharge returned to the hospital septic and suffered a cardiopulmonary arrest necessitating a transfer to [facility] He was treated for Choleycystitis, and as he is a nonsurgical candidate, he was treated conservatively with a pigtail catheter and antibiotics. He is chronically a resident at the [facility], noted to be febrile and sent in for evaluation. Work-up in the ED was significant for a temperature of 39.9, borderline tachycardia, and leukocytosis. Imaging with CT was relevant for likely atelectasis at the right lung base (with pneumonia not excluded) but without other significant pathology. The Pigtail catheter was noted to be in the gallbladder fossa, with trace fluid and 2 stones in the contracted gallbladder. Urinalysis showed evidence for a UTI, but culture only growing Sandra at this time. The patient remains on broad spectrum antibiotics with rapid resolution of his leukocytosis. His cultures remain negative. No overnight events reported. Remains afebrile. Exam Narrative Exam Narrative: General: Patient appears comfortable, sleeping at time of exam. NAD. Morbidly obese. Neck: Supple CV: Regular, nontachycardic, S1S2. Pulmonary: Clear to auscultation bilaterally, no crackles, wheezing, or rhonchi on limited anterior and lateral exam. Abdomen: + Bowel Sounds, soft, nontender, nondistended Vascular: B/l LE edema with hyperpigmentation of bilateral shins. Objective Objective Clinical Data: Abnormal lab results 12/25/17 12/25/17 Range/Units 06:32 06:32 RBC 3.93 L (4.50-6.00) m/cumm Hgb 8.4 L (13.5-17.5) g/dL Hct 28.8 L (40.0-50.0) % MCV 73.3 L (80-95) fL MCH 21.4 L (27.0-33.0) pg MCHC 29.2 L (32.0-36.0) g/dL RDW 18.8 H (11.8-14.1) % Plt Count 426 H (130-400) x1000/uL Absolute Neutrophils 8.76 H (1.2-6.7) k/cumm Absolute Lymphocytes 0.96 L (1.2-3.4) k/cumm Anion Gap 11.9 H (3-11) mmol/L BUN 22 H (7-18) mg/dL Creatinine 1.91 H (0.70-1.30) mg/dL Glucose 179 H (70-100) mg/dL Calcium 8.4 L (8.5-10.1) mg/dL Vital Signs Temperature 37.1 C 12/25/17 13:37 Temperature Source Temporal Artery Scan 12/25/17 13:37 Pulse 75 12/25/17 14:01 Pulse 75 12/25/17 14:01 Respiratory Rate 20 12/25/17 14:01 Respiratory Effort 12/25/17 13:37 Respiratory Depth Normal 12/25/17 13:37 Respiratory Pattern Normal 12/25/17 13:37 Blood Pressure 144/71 H 12/25/17 14:01 Blood Pressure Mean 86 12/25/17 14:01 Blood Pressure Position Supine 12/25/17 13:37 Pulse Oximetry 94 L 12/25/17 03:15 Oxygen Delivery Method Room Air 12/25/17 13:37 Oxygen Flow Rate 0 12/25/17 13:37 Pain Level 0 12/25/17 13:37 Intake & Output 12/24/17 12/25/17 12/25/17 23:59 11:59 23:59 Intake Total 2151.250 / 2151.250 1652.083 / 1652.083 300 / 300 Output Total 1200 / 1200 1425 / 1425 550 / 550 Balance 951.250 / 951.250 227.083 / 227.083 -250 / -250 Weight 111.3 kg Intake: IV 1331.250 / 2094.183 3603.083 / 1052.083 Oral 820 / 820 600 / 600 300 / 300 Output: Drainage 250 / 250 600 / 600 100 / 100 Right Lower Abdomen 250 / 250 600 / 600 100 / 100 Urine 650 / 650 425 / 425 250 / 250 Stool 300 / 300 400 / 400 200 / 200 Other: Urine Color Yellow Yellow Urine Appearance Cloudy Cloudy Comment ruiz in place ruiz in place ruiz in place Stool Characteristics Liquid Green Laboratory Results WBC 10.29 k/cumm (4.4-10.8) D 12/25/17 06:32 RBC 3.93 m/cumm (4.50-6.00) L 12/25/17 06:32 Hgb 8.4 g/dL (13.5-17.5) L 12/25/17 06:32 Hct 28.8 % (40.0-50.0) L 12/25/17 06:32 MCV 73.3 fL (80-95) L 12/25/17 06:32 MCH 21.4 pg (27.0-33.0) L 12/25/17 06:32 MCHC 29.2 g/dL (32.0-36.0) L 12/25/17 06:32 RDW 18.8 % (11.8-14.1) H 12/25/17 06:32 Plt Count 426 x1000/uL (130-400) H 12/25/17 06:32 MPV 9.9 fL (8.0-11.0) 12/25/17 06:32 Immature Gran % 0.4 12/25/17 06:32 Neutrophils % 85.1 12/25/17 06:32 Lymphocytes % 9.3 12/25/17 06:32 Monocytes % 3.7 12/25/17 06:32 Eosinophils % 1.1 12/25/17 06:32 Basophils % 0.4 12/25/17 06:32 Absolute Neutrophils 8.76 k/cumm (1.2-6.7) H 12/25/17 06:32 Absolute Lymphocytes 0.96 k/cumm (1.2-3.4) L 12/25/17 06:32 Absolute Monocytes 0.38 k/cumm (0.11-0.7) 12/25/17 06:32 Absolute Eosinophils 0.11 k/cumm (0.0-0.7) 12/25/17 06:32 Absolute Basophils 0.04 k/cumm (0.0-0.2) 12/25/17 06:32 Differential Comment Manual differential 12/24/17 07:05 Atypical Lymphocytes 1 12/24/17 07:05 RBC Morphology See below 12/24/17 07:05 Polychromasia Present 12/24/17 07:05 Hypochromasia 2+ 12/24/17 07:05 Anisocytosis 2+ 12/24/17 07:05 Microcytosis 3+ 12/24/17 07:05 Ovalocytes 2+ 12/24/17 07:05 Sodium 140 mmol/L (136-145) 12/25/17 06:32 Potassium 4.3 mmol/L (3.5-5.1) 12/25/17 06:32 Chloride 107 mmol/L (98-107) 12/25/17 06:32 Carbon Dioxide 21.1 mmol/L (21.0-32.0) 12/25/17 06:32 Anion Gap 11.9 mmol/L (3-11) H 12/25/17 06:32 BUN 22 mg/dL (7-18) H 12/25/17 06:32 Creatinine 1.91 mg/dL (0.70-1.30) H 12/25/17 06:32 Estimated GFR/1.73 m2 36.37 (mL/min/1.73m2) 12/25/17 06:32 Glucose 179 mg/dL (70-100) H 12/25/17 06:32 Lactate 1.2 mmol/L (0.6-1.4) 12/23/17 21:28 Calcium 8.4 mg/dL (8.5-10.1) L 12/25/17 06:32 Total Bilirubin 0.3 mg/dL (0.2-1.0) 12/23/17 21:28 AST 11 U/L (15-37) L 12/23/17 21:28 ALT 12 U/L (12-78) 12/23/17 21:28 Alkaline Phosphatase 316 U/L (46-116) H 12/23/17 21:28 Total Protein 7.6 g/dL (6.4-8.2) 12/23/17 21:28 Albumin 2.1 g/dL (3.4-5.0) L 12/23/17 21:28 Urine Color Yellow (Yellow) 12/24/17 00:02 Urine Clarity Cloudy 12/24/17 00:02 Urine pH 5.5 (5-8) 12/24/17 00:02 Ur Specific [place] 1.025 (1.005-1.025) 12/24/17 00:02 Urine Protein 100 mg/dL (Negative) H 12/24/17 00:02 Urine Ketones Negative mg/dL (Negative) 12/24/17 00:02 Urine Blood Moderate (Negative) H 12/24/17 00:02 Urine Nitrite Negative (Negative) 12/24/17 00:02 Urine Bilirubin Negative (Negative) 12/24/17 00:02 Urine Urobilinogen 0.2 EU/dL (Up TO 0.2) 12/24/17 00:02 Ur Leukocyte Esterase Large (Negative) H 12/24/17 00:02 Urine RBC (0-2) 12/24/17 00:02 Urine WBC >50 HPF (0-5) 12/24/17 00:02 Ur Epithelial Cells HPF (Negative) 12/24/17 00:02 Urine Crystals Not Applicable 12/24/17 00:02 Urine Bacteria HPF (Negative) 12/24/17 00:02 Urine Mucus Not Applicable 12/24/17 00:02 Ur Culture Indicated? Yes 12/24/17 00:02 Urine Glucose Negative mg/dL (Negative) 12/24/17 00:02
[2017-12-25 19:30] LABS: Bilirubin Negative (Negative); Blood Moderate (Negative); Clarity Cloudy; Glucose Negative (Negative); Ketones Negative (Negative); Leukocyte Esterase Moderate (Negative); Nitrite Negative (Negative); Urobilinogen 0.2 EU/dL (Up TO 0.2)
[2017-12-25 19:49] LABS: Bacteria Many HPF (Negative); Crystals Negative HPF (Negative); Epithelial Cells Few HPF (Negative); Mucus Negative (Negative); Other Cells Negative (Negative); RBC >50 (0-2); WBC >50 HPF (0-5)
[2017-12-25 19:50] LABS: C & S Indicated? Yes; Casts 0-2 Coarse Granular LPF (Negative)
[2017-12-25] MEDS: risperiDONE 1 MG TAB 3 MG PO (21:19)
[2017-12-25] MEDS: traZODone 50 MG TAB PO (21:20)
[2017-12-25] MEDS: Patch Removal 1 EACH TP (21:20)
[2017-12-26] VITALS (22 sets, daily range): BP systolic 129–165; BP diastolic 58–90; PULSE 58–75; RESP 12–29; TEMP 35.7–36.7; O2SAT 95–99
[2017-12-26] MEDS: PIPERACILLIN/TAZO 3.375 GM in Normal Saline 50 ML IVPB ×4 (03:11→22:55)
[2017-12-26] MEDS: Levothyroxine 50 MCG TAB PO (05:11)
[2017-12-26 05:30] LABS: Anion Gap 8.8 mmol/L (3-11); BUN 23 mg/dL (7-18); CO2 22.2 mmol/L (21.0-32.0); Calcium 8.3 mg/dL (8.5-10.1); Chloride 108 mmol/L (98-107); Glucose 222 mg/dL (70-100); Potassium 4.5 mmol/L (3.5-5.1); Sodium 139 mmol/L (136-145)
[2017-12-26 05:33] LABS: Abs Immature Grans 0.04 k/cumm (0.0-0.09); Absolute Eosinophil Count 0.27 k/cumm (0.0-0.7); Absolute Lymphocyte Count 1.03 k/cumm (1.2-3.4); Absolute Monocyte Count 0.44 k/cumm (0.11-0.7); Basophils % 0.4; Eosinophils % 2.4; HCT 27.9 % (40.0-50.0); HGB 8.3 g/dL (13.5-17.5); Immature Grans % 0.4; Lymphocytes % 9.1; Mean Corp. HGB Concentration 29.7 g/dL (32.0-36.0); Mean Corpuscular Hemoglobin 21.5 pg (27.0-33.0); Mean Corpuscular Volume 72.3 fL (80-95); Mean Platelet Volume 9.9 fL (8.0-11.0); Monocytes % 3.9; Neutrophils % 83.8; Platelet Count 442 x1000/uL (130-400); RBC 3.86 m/cumm (4.50-6.00); RBC Distribution Width 18.7 % (11.8-14.1); White Blood Cell Count 11.36 k/cumm (4.4-10.8)
[2017-12-26 05:36] LABS: Absolute Basophil Count 0.05 k/cumm (0.0-0.2); Absolute Neutrophil Count 9.52 k/cumm (1.2-6.7)
[2017-12-26 05:38] LABS: Vancomycin, Trough 30.7 ug/mL (10.0-20.0)
[2017-12-26 05:50] LABS: Anisocytosis 2+; Hypochromasia 2+; Microcytosis 2+; Polychromasia Present
[2017-12-26] MEDS: Normal Saline Flush 10 ML SYR IVP ×3 (07:53→21:09)
[2017-12-26] MEDS: Pantoprazole 40 MG VIAL IVP (07:53)
[2017-12-26] MEDS: Heparin 5,000 UNITS/ML VIAL 5000 UNITS SC ×2 (07:54→18:44)
[2017-12-26] MEDS: Lidocaine 5% Patch 1 PATCH TP (07:54)
[2017-12-26] MEDS: Cyanocobalamin 500 MCG TAB 1000 MCG PO (07:55)
[2017-12-26] MEDS: Omega-3 Fatty Acids 1000 MG CAP 2000 MG PO (07:55)
[2017-12-26] MEDS: cloNIDine 0.1 MG TAB 0.3 MG PO ×2 (07:55→20:39)
[2017-12-26] MEDS: Folic Acid 1 MG TAB PO (07:55)
[2017-12-26] MEDS: Loperamide 2 MG CAP PO (07:55)
[2017-12-26] MEDS: carBAMazepine 100 MG CHEW PO ×3 (07:55→20:38)
[2017-12-26] MEDS: Venlafaxine 75 MG TAB PO ×3 (07:55→20:38)
[2017-12-26] MEDS: Gabapentin 800 MG TAB PO ×3 (07:56→20:38)
[2017-12-26] MEDS: Acetaminophen 500 MG TAB PO ×2 (07:56→20:38)
[2017-12-26] MEDS: Furosemide 40 MG TAB PO (07:56)
[2017-12-26] MEDS: Aspirin E.C. 81 MG TABEC PO ×2 (07:56→20:38)
[2017-12-26] MEDS: amLODIPine 5 MG TAB PO (07:56)
[2017-12-26] MEDS: Multivitamin w/Minerals TAB 1 TAB PO (07:56)
[2017-12-26] MEDS: Sertraline 25 MG TAB PO (08:19)
[2017-12-26] MEDS: Insulin Aspart 300 UNITS/3 ML PEN SC ×2 (08:20→12:04)
[2017-12-26] MEDS: Insulin Glargine 300 UNITS/3 ML PEN 40 UNITS SC ×2 (08:24→21:10)
[2017-12-26] MEDS: Hydrocortisone SOD SUC. 100 MG VIAL 50 MG IVP (08:35)
--- NOTE | 2017-12-26 10:55 | PDOC.CMPRO ---
Care Management Progress Note S/O: Brendan was sleeping soundly this morning when CM attempted to meet with him. Per RN; Kimberly he had struggled sleeping last night. CM faxed updated clinicals to the [facility] for review and will continue to follow. Per RN; Jade, the [facility] delivered Brendan's medication as requested. No change to overall plan. A: 57 year old male admitted to [facility] 12/24/17 for Fever P: Brendan will return to the [facility] when ready per MD-likely via W/C van. He will have a PT consult to inform discharge planning needs, CM will continue to follow-monitor clinical status-and support Brendan and his family as needed.
--- NOTE | 2017-12-26 13:10 | CMPROGNOTE_ITS ---
Care Management Progress Note S/O: Brendan was sleeping soundly this morning when CM attempted to meet with him. Per RN; Kimberly he had struggled sleeping last night. CM faxed updated clinicals to the [facility] for review and will continue to follow. Per RN; Jade, the [facility] delivered Brendan's medication as requested. No change to overall plan. A: 57 year old male admitted to [facility] 12/24/17 for Fever P: Brendan will return to the [facility] when ready per MD-likely via W/C van. He will have a PT consult to inform discharge planning needs, CM will continue to follow -monitor clinical status-and support Brendan and his family as needed.
--- NOTE | 2017-12-26 14:22 | PT.INIE ---
Date of service: 12/26/17 Time of Service: 13:16 PT Notes Date: 12/26/17 Referring Doctor: Ariel Bravo PT Orders: PT CONSULT: PT eval and tx for weakness and deconditioned Precautions: Fall precautions, Contact Precautions Patient Profile/Admitting Diagnosis: Pt is a 57yr old male admitted with celluliitis of right leg, urosepsis PMHX: Bipolar Disorder, chronic back pain, lower extremity edema, obesity, diabetes mellitus, diabetic neuropathy, diabetic foot ulcers, rheumatoid arthritis, osteoarthritis bilateral knees, sacral decubitus ulcer, chronic renal insufficiency, coronary artery disease, crohn's disease, s/p colectomy, anemia, urinary tract infection, dyslipidemia, hypoandrogenism, cholelithiasis, hypertension Social History/Home Situation: Resident of [facility]. Per patient he was ambulatory with FWW in hallways Equipment Owned/DME: FWW, pt wears sneakers with gait does not have them here at the hospital Subjective: Pt lying in bed, agreeable to short PT consult I want my own time too. Objective: General Observation: telemetry, ruiz catheter Mental Status: A& O to name, location Pain: no c/o pain Bed Mobility/Transfers: Supine-sit: independent Sit-stand: supervision with FWW Stand-sit: supervision Sit-supine: independent Rolling in bed: independent Gait: SBA with FWW 5 side steps left at bedside. Deferred further gait as he wanted to watch TV, agreeable to increase gait in am with therapy. Pt usually wears sneakers with gait, his sneakers are not here with him at the hospital. Balance: Static Sitting: normal Dynamic Sitting: normal Static Standing: fair Dynamic Standing: fair Special Tests: Mobility Limitations Standardized Measure [facility] AM-PAC 6 clicks Basic Mobility Inpatient Short Form: Raw Score: 21 Standardized Score: 50.25 CMS Score: 28.97% [facility] Modifier: CJ Informed Consent/Education: Patient instructed in purpose of PT consult and plan of care. Assessment: Pt is a 57yr old male admitted with cellulitis of right LE and urosepsis in setting of Bipolar Disorder, chronic back pain, lower extremity edema, obesity, diabetes mellitus, diabetic neuropathy, diabetic foot ulcers, rheumatoid arthritis, osteoarthritis bilateral knees, sacral decubitus ulcer, chronic renal insufficiency, coronary artery disease. Patient presents with the following impairment level findings: decreased strength in bilateral UE's and bilateral Le's, decreased strength with transfers and gait requiring use of FWW for stability, decreased static and dynamic standing balance putting him at high risk for falls. Pt will benefit from skilled therapy intervention, anticipate return to the [facility] when medically stable. Impairments are contributing to the following functional limitations: AMPAC score CMS Score: 28.97% Patient is assessed as a Moderate 35161 complexity based on the following: History: see above Examination: see above Presentation: evolving Decision Making: [facility] CMS Score: 28.97% Goals: Goals X1 week 1. Supine-Sit independent 2. Sit-Supine independent 3. Sit-Stand independent with FWW 4. Stand-Sit independent 5. Bed-Chair supervision with FWW 6. Chair-Bed supervision with FWW 7. Gait SBA with FWW 100ft Plan of Care/Treatment Plan: 1-2x/day, 7 days/week x 1 week. Plan of care has been reviewed with the RADIOLOGY THERAPIST providing the service under Physical Therapy direction. Initiate Physical Therapy intervention for strengthening, bed mobility, transfers, gait, stairs, balance training, use of assistive device. DISCHARGE RECOMMENDATIONS: Return to the [facility] TREATMENT CODES: 24min IE 1315 G Codes in the area mobility of walking and moving around: current status [id number] CJ; projected status GP [id number]. Discharge status (if discharging) GP [id number] CJ based on AMPA score Yolanda Chang PT
--- NOTE | 2017-12-26 14:30 | IN_ITS ---
Date of service: 12/26/17 Time of Service: 13:16 PT Notes Date: 12/26/17 Referring Doctor: Ariel Bravo PT Orders: PT CONSULT: PT eval and tx for weakness and deconditioned Precautions: Fall precautions, Contact Precautions Patient Profile/Admitting Diagnosis: Pt is a 57yr old male admitted with celluliitis of right leg, urosepsis PMHX: Bipolar Disorder, chronic back pain, lower extremity edema, obesity, diabetes mellitus, diabetic neuropathy, diabetic foot ulcers, rheumatoid arthritis, osteoarthritis bilateral knees, sacral decubitus ulcer, chronic renal insufficiency, coronary artery disease, crohn's disease, s/p colectomy, anemia, urinary tract infection, dyslipidemia, hypoandrogenism, cholelithiasis, hypertension Social History/Home Situation: Resident of [facility]. Per patient he was ambulatory with FWW in hallways Equipment Owned/DME: FWW, pt wears sneakers with gait does not have them here at the hospital Subjective: Pt lying in bed, agreeable to short PT consult I want my own time too. Objective: General Observation: telemetry, ruiz catheter Mental Status: A& O to name, location Pain: no c/o pain Bed Mobility/Transfers: Supine-sit: independent Sit-stand: supervision with FWW Stand-sit: supervision Sit-supine: independent Rolling in bed: independent Gait: SBA with FWW 5 side steps left at bedside. Deferred further gait as he wanted to watch TV, agreeable to increase gait in am with therapy. Pt usually wears sneakers with gait, his sneakers are not here with him at the hospital. Balance: Static Sitting: normal Dynamic Sitting: normal Static Standing: fair Dynamic Standing: fair Special Tests: Mobility Limitations Standardized Measure [facility] AM-PAC 6 clicks Basic Mobility Inpatient Short Form: Raw Score: 21 Standardized Score: 50.25 CMS Score: 28.97% [facility] Modifier: CJ Informed Consent/Education: Patient instructed in purpose of PT consult and plan of care. Assessment: Pt is a 57yr old male admitted with cellulitis of right LE and urosepsis in setting of Bipolar Disorder, chronic back pain, lower extremity edema, obesity, diabetes mellitus, diabetic neuropathy, diabetic foot ulcers, rheumatoid arthritis, osteoarthritis bilateral knees, sacral decubitus ulcer, chronic renal insufficiency, coronary artery disease. Patient presents with the following impairment level findings: decreased strength in bilateral UE's and bilateral Le's, decreased strength with transfers and gait requiring use of FWW for stability, decreased static and dynamic standing balance putting him at high risk for falls. Pt will benefit from skilled therapy intervention, anticipate return to the [facility] when medically stable. Impairments are contributing to the following functional limitations: AMPAC score CMS Score: 28.97% Patient is assessed as a Moderate 67885 complexity based on the following: History: see above Examination: see above Presentation: evolving Decision Making: [facility] CMS Score: 28.97% Goals: Goals X1 week 1. Supine-Sit independent 2. Sit-Supine independent 3. Sit-Stand independent with FWW 4. Stand-Sit independent 5. Bed-Chair supervision with FWW 6. Chair-Bed supervision with FWW 7. Gait SBA with FWW 100ft Plan of Care/Treatment Plan: 1-2x/day, 7 days/week x 1 week. Plan of care has been reviewed with the [employer] MACHINE WORKER providing the service under Physical Therapy direction. Initiate Physical Therapy intervention for strengthening, bed mobility, transfers, gait, stairs, balance training, use of assistive device. DISCHARGE RECOMMENDATIONS: Return to the [facility] TREATMENT CODES: 24min IE 1315 G Codes in the area mobility of walking and moving around: current status [id number] CJ; projected status GP [id number]. Discharge status (if discharging) GP [id number] CJ based on AMPA score Yolanda Chang PT
--- NOTE | 2017-12-26 16:58 | PGE_ITS ---
Date of Service Date of service: 12/26/17 Time of Service: 16:50 Assessment and Plan (1) Fever: Current visit: Yes Status: Acute Mr. Corley was hospitalized recently, with evidence of enterococcus faecalis UTI as well as blood cultures positive for group C strep as etiology. He was also recently treated for Cholecystitis with antibiotics and catheter placement. Current Blood cultures remain negative, and Urine Culture only growing Sandra Albicans. CT chest, abdomen, and pelvis without any evidence of pathology other than likely atelectasis. Patient has however defervesced and with leukocytosis essentially resolved on broad spectrum antibiotics. Unsure of source of current infection. Imaging does not appear to show any acute pathology, and urine culture growing Sandra which may be colonization ( CT without evidence of hydro, fungus ball, or other abnormality). No evidence of cellulitis currently, and blood cultures remain negative. Ostomy without significantly increased output to indicate GI Infection. Discussed case with ID - will repeat urinalysis with new ruiz cath, and if recurrence of sandra consider treatment. If initiated will require 14 days of Fluconazole and some medication changes secondary to med interactions with antifungal therapy. For now continue antibiotics, and await official evaluation by wound care for consideration of possible imaging of right toe. (2) Diabetes mellitus type 2, controlled: Current visit: Yes Status: Chronic Continue basal insulin, sliding scale coverage, and ADA diet. (3) Hypertension: Current visit: Yes Status: Chronic Continue CCB. Also on Clonidine. Also on diuretic therapy - restarted yesterday. (4) Chronic pain: Current visit: Yes Status: Chronic Continue home regimen. (5) CAD (coronary artery disease): Current visit: Yes Status: Chronic Appears quiescent. (6) Rheumatoid arthritis: Current visit: No Status: Chronic Maintained chronically on Humira as an outpatient, as well as daily prednisone therapy. Wean stress dose steroids quickly down to baseline steroid dose. (7) Crohns disease: Current visit: Yes Status: Chronic Status post total colectomy, with ostomy in place that appears to be functioning well. (8) CKD (chronic kidney disease): Current visit: Yes Status: Chronic Creatinine appears at baseline. Monitor carefully. Patient with tendency for JESUS and significant/symptomatic Hyperkalemia in the past. (9) DVT prophylaxis: Current visit: No Status: Acute Continue Heparin SC. Also on PPI for GI prophylaxis. Subjective Interval history since last seen: 57 year old man with past medical history significant for RA on chronic steroid therapy, CKD, DM, and recent hospitalization for sepsis admitted from [facility] emergency department on 2017 with reported fever and evidence of UTI. Mr. Corley was recently hospitalized here at [facility] with sepsis. He has a history of Group C strep bacteremia and E. Fecalis UTI, and following his discharge returned to the hospital septic and suffered a cardiopulmonary arrest necessitating a transfer to [facility]. He was treated for Choleycystitis, and as he is a nonsurgical candidate, he was treated conservatively with a pigtail catheter and antibiotics. He is chronically a resident at the [facility], noted to be febrile and sent in for evaluation. Work-up in the ED was significant for a temperature of 39.9, borderline tachycardia, and leukocytosis. Imaging with CT was relevant for likely atelectasis at the right lung base (with pneumonia not excluded) but without other significant pathology. The Pigtail catheter was noted to be in the gallbladder fossa, with trace fluid and 2 stones in the contracted gallbladder. Urinalysis showed evidence for a UTI, but culture only growing Sandra at this time. The patient remains on broad spectrum antibiotics with rapid resolution of his leukocytosis, although with mild elevation today likely on the basis of stress dosed steroids. His cultures remain negative with the exception of Sandra in the Urine, and his urinalysis remains positive, but culture negative. No overnight events reported. Remains afebrile. Exam Narrative Exam Narrative: General: Patient appears comfortable, sleeping at time of exam. NAD. Morbidly obese. Neck: Supple CV: Regular, nontachycardic, S1S2. Pulmonary: Clear to auscultation bilaterally, no crackles, wheezing, or rhonchi on limited anterior and lateral exam. Abdomen: + Bowel Sounds, soft, nontender, nondistended Vascular: B/l LE edema with hyperpigmentation of bilateral shins. Musculoskeletal: Right foot, 1st digit with ulcerated wound that does not appear to be infected/cellulitic, or necrotic. Objective Objective Clinical Data: Abnormal lab results 12/25/17 12/26/17 12/26/17 Range/Units 18:55 05:12 05:12 WBC (4.4-10.8) k/cumm RBC (4.50-6.00) m/cumm Hgb (13.5-17.5) g/dL Hct (40.0-50.0) % MCV (80-95) fL MCH (27.0-33.0) pg MCHC (32.0-36.0) g/dL RDW (11.8-14.1) % Plt Count (130-400) x1000/uL Absolute Neutrophils (1.2-6.7) k/cumm Absolute Lymphocytes (1.2-3.4) k/cumm Chloride 108 H (98-107) mmol/L BUN 23 H (7-18) mg/dL Creatinine 2.10 H (0.70-1.30) mg/dL Glucose 222 H (70-100) mg/dL Calcium 8.3 L (8.5-10.1) mg/dL Urine Protein 100 H (Negative) mg/dL Urine Blood Moderate H (Negative) Ur Leukocyte Esterase Moderate H (Negative) Urine RBC >50 H (0-2) Vancomycin Trough 30.7 H* (10.0-20.0) ug/mL 12/26/17 Range/Units 05:12 WBC 11.36 H (4.4-10.8) k/cumm RBC 3.86 L (4.50-6.00) m/cumm Hgb 8.3 L (13.5-17.5) g/dL Hct 27.9 L (40.0-50.0) % MCV 72.3 L (80-95) fL MCH 21.5 L (27.0-33.0) pg MCHC 29.7 L (32.0-36.0) g/dL RDW 18.7 H (11.8-14.1) % Plt Count 442 H (130-400) x1000/uL Absolute Neutrophils 9.52 H (1.2-6.7) k/cumm Absolute Lymphocytes 1.03 L (1.2-3.4) k/cumm Chloride (98-107) mmol/L BUN (7-18) mg/dL Creatinine (0.70-1.30) mg/dL Glucose (70-100) mg/dL Calcium (8.5-10.1) mg/dL Urine Protein (Negative) mg/dL Urine Blood (Negative) Ur Leukocyte Esterase (Negative) Urine RBC (0-2) Vancomycin Trough (10.0-20.0) ug/mL Vital Signs Temperature 35.7 C L 12/26/17 16:12 Temperature Source Tympanic 12/26/17 16:12 Pulse 64 12/26/17 16:12 Pulse 70 12/26/17 14:01 Respiratory Rate 17 12/26/17 14:01 Respiratory Effort Non-Labored 12/26/17 16:12 Respiratory Depth Normal 12/26/17 16:12 Respiratory Pattern Normal 12/26/17 16:12 Blood Pressure 160/82 H 12/26/17 16:12 Blood Pressure Mean 108 12/26/17 16:12 Blood Pressure Position Supine 12/26/17 16:12 Pulse Oximetry 97 12/26/17 16:12 Oxygen Delivery Method Room Air 12/26/17 16:12 Oxygen Flow Rate 0 12/26/17 16:12 Pain Level 0 12/26/17 16:12 Intake & Output 12/25/17 12/26/17 12/26/17 23:59 11:59 23:59 Intake Total 940 / 940 580 / 580 480 / 480 Output Total 550 / 550 1450 / 1450 600 / 600 Balance 390 / 390 -870 / -870 -120 / -120 Weight 114 kg Intake: IV 400 / 400 100 / 100 Oral 540 / 540 480 / 480 480 / 480 Output: Drainage 100 / 100 600 / 600 50 / 50 Right Lower Abdomen 100 / 100 600 / 600 50 / 50 Urine 250 / 250 300 / 300 425 / 425 Stool 200 / 200 550 / 550 125 / 125 Other: Urine Color Yellow Yellow Yellow Urine Appearance Cloudy Cloudy Clear Sediment Mucous Threads Comment Ruiz catheter in place and draining Ruiz catheter in place and draining ruiz catheter in place Laboratory Results WBC 11.36 k/cumm (4.4-10.8) H 12/26/17 05:12 RBC 3.86 m/cumm (4.50-6.00) L 12/26/17 05:12 Hgb 8.3 g/dL (13.5-17.5) L 12/26/17 05:12 Hct 27.9 % (40.0-50.0) L 12/26/17 05:12 MCV 72.3 fL (80-95) L 12/26/17 05:12 MCH 21.5 pg (27.0-33.0) L 12/26/17 05:12 MCHC 29.7 g/dL (32.0-36.0) L 12/26/17 05:12 RDW 18.7 % (11.8-14.1) H 12/26/17 05:12 Plt Count 442 x1000/uL (130-400) H 12/26/17 05:12 MPV 9.9 fL (8.0-11.0) 12/26/17 05:12 Immature Gran % 0.4 12/26/17 05:12 Neutrophils % 83.8 12/26/17 05:12 Lymphocytes % 9.1 12/26/17 05:12 Monocytes % 3.9 12/26/17 05:12 Eosinophils % 2.4 12/26/17 05:12 Basophils % 0.4 12/26/17 05:12 Absolute Neutrophils 9.52 k/cumm (1.2-6.7) H 12/26/17 05:12 Absolute Lymphocytes 1.03 k/cumm (1.2-3.4) L 12/26/17 05:12 Absolute Monocytes 0.44 k/cumm (0.11-0.7) 12/26/17 05:12 Absolute Eosinophils 0.27 k/cumm (0.0-0.7) 12/26/17 05:12 Absolute Basophils 0.05 k/cumm (0.0-0.2) 12/26/17 05:12 Differential Comment Manual differential 12/24/17 07:05 Atypical Lymphocytes 1 12/24/17 07:05 RBC Morphology See below 12/26/17 05:12 Polychromasia Present 12/26/17 05:12 Hypochromasia 2+ 12/26/17 05:12 Anisocytosis 2+ 12/26/17 05:12 Microcytosis 2+ 12/26/17 05:12 Ovalocytes 2+ 12/24/17 07:05 Sodium 139 mmol/L (136-145) 12/26/17 05:12 Potassium 4.5 mmol/L (3.5-5.1) 12/26/17 05:12 Chloride 108 mmol/L (98-107) H 12/26/17 05:12 Carbon Dioxide 22.2 mmol/L (21.0-32.0) 12/26/17 05:12 Anion Gap 8.8 mmol/L (3-11) 12/26/17 05:12 BUN 23 mg/dL (7-18) H 12/26/17 05:12 Creatinine 2.10 mg/dL (0.70-1.30) H 12/26/17 05:12 Estimated GFR/1.73 m2 32.60 (mL/min/1.73m2) 12/26/17 05:12 Glucose 222 mg/dL (70-100) H 12/26/17 05:12 Lactate 1.2 mmol/L (0.6-1.4) 12/23/17 21:28 Calcium 8.3 mg/dL (8.5-10.1) L 12/26/17 05:12 Total Bilirubin 0.3 mg/dL (0.2-1.0) 12/23/17 21:28 AST 11 U/L (15-37) L 12/23/17 21:28 ALT 12 U/L (12-78) 12/23/17 21:28 Alkaline Phosphatase 316 U/L (46-116) H 12/23/17 21:28 Total Protein 7.6 g/dL (6.4-8.2) 12/23/17 21:28 Albumin 2.1 g/dL (3.4-5.0) L 12/23/17 21:28 Urine Color Yellow (Yellow) 12/25/17 18:55 Urine Clarity Cloudy 12/25/17 18:55 Urine pH 6.0 (5-8) 12/25/17 18:55 Ur Specific [place] 1.020 (1.005-1.025) 12/25/17 18:55 Urine Protein 100 mg/dL (Negative) H 12/25/17 18:55 Urine Ketones Negative mg/dL (Negative) 12/25/17 18:55 Urine Blood Moderate (Negative) H 12/25/17 18:55 Urine Nitrite Negative (Negative) 12/25/17 18:55 Urine Bilirubin Negative (Negative) 12/25/17 18:55 Urine Urobilinogen 0.2 EU/dL (Up TO 0.2) 12/25/17 18:55 Ur Leukocyte Esterase Moderate (Negative) H 12/25/17 18:55 Urine RBC >50 (0-2) H 12/25/17 18:55 Urine WBC >50 HPF (0-5) 12/25/17 18:55 Ur Epithelial Cells Few HPF (Negative) 12/25/17 18:55 Urine Crystals Negative HPF (Negative) 12/25/17 18:55 Urine Bacteria Many HPF (Negative) 12/25/17 18:55 Urine Casts 0-2 coarse granular LPF (Negative) 12/25/17 18:55 Urine Mucus Negative (Negative) 12/25/17 18:55 Urine Other Negative (Negative) 12/25/17 18:55 Ur Culture Indicated? Yes 12/25/17 18:55 Urine Glucose Negative mg/dL (Negative) 12/25/17 18:55 Vancomycin Trough 30.7 ug/mL (10.0-20.0) H* 12/26/17 05:12
--- NOTE | 2017-12-26 19:47 | WOUNDCARE ---
Wound Care Report: This nurse was consulted to recommend care on patient's wound on his right great toe. Patient is a 58 year old male who resides at the [facility]. He was admitted to [facility] for fever with an unknown source of infection. His WBC was 27.5 upon admission and is now 11.36. He is receiving IV Vancomycin and Zosyn as ordered. He has a history of diabetes mellitus type 2. His last HgbA1c was 6.8% on 12/08/17. Patient's history and physical and labs reviewed. Patient has a urinary catheter in place. He states that he does not usually have a urinary catheter and uses a urinal to void. He denies any urinary incontinence. He has a ileostomy at this time. To patient's right great toe is noted to be a wound measuring 2.3 x 1.4 x <0.1cm. No drainage noted. Wound bed is dry and 50% black eschar and 50% firmly adherent yellow slough. Wound edges are calloused and dry. Some redness noted to periwound skin, but skin is not swollen, indurated, or hot. To patient's right lateral foot is noted to be a wound measuring 0.8 x 0.9 x 0.2 cm. No drainage noted. Wound bed is dry and 100% firmly adherent white slough. Wound edges are calloused and dry. Periwound is warm, dry, and scaly. To patient's left lateral ankle is noted to be a wound measuring 0.4 x 0.3 x <0.1 cm. No drainage noted. Wound bed is dry and 50% firmly adherent yellow slough and 50% nongranulating red tissue.. Periwound skin is warm, dry, and scaly. To these wounds this nurse recommends consulting with podiatry for callus management, possible conservative sharp debridement, and possible work up for osteomyelitis. While awaiting podiatry consult, this nurse recommends the following: cleanse wounds with wound cleanser and gauze, apply hydrogel to wound bed, and apply mepilex with borders. Change dressing daily. This nurse also recommends keeping heels floated and use a bed cradle to reduce pressure on the feet. To patient's buttocks is noted to be diffuse blanchable redness. No open areas noted at this time. Patient reports that he does sweat a lot at baseline, particularly any area that is in contact with the bed. This nurse recommends applying antifungal cream to buttocks BID and turning and repositioning patient Q2H.
[2017-12-26] MEDS: VANCOMYCIN 1,000 MG in Normal Saline 250 ML 167 MG IVPB (21:09)
[2017-12-26] MEDS: Patch Removal 1 EACH TP (22:00)
[2017-12-26] MEDS: traZODone 50 MG TAB PO (23:02)
[2017-12-26] MEDS: risperiDONE 1 MG TAB 3 MG PO (23:02)
[2017-12-27] VITALS (70 sets, daily range): BP systolic 147–183; BP diastolic 59–119; PULSE 65–87; RESP 14–29; TEMP 36.1–37.1; O2SAT 96–99
[2017-12-27] MEDS: Heparin 5,000 UNITS/ML VIAL 5000 UNITS SC ×3 (00:41→17:15)
[2017-12-27] MEDS: Normal Saline Flush 10 ML SYR IVP ×3 (00:42→21:25)
[2017-12-27] MEDS: PIPERACILLIN/TAZO 3.375 GM in Normal Saline 50 ML IVPB ×4 (03:22→21:25)
[2017-12-27] MEDS: Levothyroxine 50 MCG TAB PO (05:06)
[2017-12-27 08:20] LABS: Abs Immature Grans 0.05 k/cumm (0.0-0.09); Absolute Basophil Count 0.03 k/cumm (0.0-0.2); Absolute Eosinophil Count 1.14 k/cumm (0.0-0.7); Absolute Lymphocyte Count 1.13 k/cumm (1.2-3.4); Absolute Monocyte Count 0.66 k/cumm (0.11-0.7); Absolute Neutrophil Count 7.68 k/cumm (1.2-6.7); Basophils % 0.3; Eosinophils % 10.7; HCT 29.2 % (40.0-50.0); HGB 8.4 g/dL (13.5-17.5); Immature Grans % 0.5; Lymphocytes % 10.6; Mean Corp. HGB Concentration 28.8 g/dL (32.0-36.0); Mean Corpuscular Hemoglobin 21.1 pg (27.0-33.0); Mean Corpuscular Volume 73.4 fL (80-95); Monocytes % 6.2; Neutrophils % 71.7; Platelet Count 462 x1000/uL (130-400); RBC 3.98 m/cumm (4.50-6.00); RBC Distribution Width 18.7 % (11.8-14.1); White Blood Cell Count 10.69 k/cumm (4.4-10.8)
[2017-12-27 08:25] LABS: Anion Gap 10.4 mmol/L (3-11); BUN 21 mg/dL (7-18); CO2 23.6 mmol/L (21.0-32.0); CREATININE 1.89 mg/dL (0.70-1.30); Calcium 8.2 mg/dL (8.5-10.1); Chloride 109 mmol/L (98-107); Estimated GFR 36.82 (mL/min/1.73m2); Glucose 61 mg/dL (70-100); Potassium 3.4 mmol/L (3.5-5.1); Sodium 143 mmol/L (136-145)
[2017-12-27] MEDS: Lidocaine 5% Patch 1 PATCH TP (09:01)
[2017-12-27] MEDS: Pantoprazole 40 MG VIAL IVP (09:01)
[2017-12-27] MEDS: Hydrocortisone SOD SUC. 100 MG VIAL 50 MG IVP ×2 (09:06→21:25)
[2017-12-27 09:07] LABS: Diff Comment Agrees w/ Instrument
[2017-12-27 09:08] LABS: Hypochromasia 2+; Microcytosis 2+; Ovalocytes 2+
[2017-12-27] MEDS: Multivitamin w/Minerals TAB 1 TAB PO (09:31)
[2017-12-27] MEDS: cloNIDine 0.1 MG TAB 0.3 MG PO ×2 (09:31→21:27)
[2017-12-27] MEDS: Omega-3 Fatty Acids 1000 MG CAP 2000 MG PO (09:31)
[2017-12-27] MEDS: Aspirin E.C. 81 MG TABEC PO ×2 (09:31→21:27)
[2017-12-27] MEDS: Acetaminophen 500 MG TAB PO ×2 (09:31→21:26)
[2017-12-27] MEDS: Gabapentin 800 MG TAB PO ×2 (09:31→14:23)
[2017-12-27] MEDS: Sertraline 25 MG TAB PO (09:31)
[2017-12-27] MEDS: amLODIPine 5 MG TAB PO (09:32)
[2017-12-27] MEDS: Furosemide 40 MG TAB PO (09:32)
[2017-12-27] MEDS: Loperamide 2 MG CAP PO (09:32)
[2017-12-27] MEDS: Folic Acid 1 MG TAB PO (09:32)
[2017-12-27] MEDS: Venlafaxine 75 MG TAB PO ×3 (09:32→21:26)
[2017-12-27] MEDS: Cyanocobalamin 500 MCG TAB 1000 MCG PO (09:32)
[2017-12-27] MEDS: carBAMazepine 100 MG CHEW PO ×3 (09:32→21:27)
[2017-12-27] MEDS: Insulin Glargine 300 UNITS/3 ML PEN 40 UNITS SC (09:44)
[2017-12-27] MEDS: Nystatin POWDER 15 GM JAR TP ×3 (10:21→21:28)
[2017-12-27] MEDS: Potassium Chloride 20 MEQ TABCR 40 MEQ PO (10:23)
[2017-12-27 11:28] LABS: Magnesium 1.2 mg/dL (1.8-2.4)
--- NOTE | 2017-12-27 11:30 | PTTR_ITS ---
Date of service: 12/27/17 Time of Service: 11:26 PT Notes 12/27/17 SUBJECTIVE: Brendan complaining of discomfort through his back side. He also is very tired. OBJECTIVE: Supine in bed. Agreeable to PT treatment. Pt having difficulty keeping his eyes open and focusing on task at hand. Bed mobility/transfers: Rolling: I Supine to sit: I Sit to supine: Min A LE Sit to stand: Min A Stand to sit: Min A Gait: Device: FWW Weight bearing: Full Assist: CGA Distance: 5 steps x2 bed<>chair Deviation: Lets go of walker with the right hand. Therex: Performs seated UE/LE strengthening with limited participation due to fatigue. Sits up in chair x 10 minutes prior to transfer back to bed. ASSESSMENT: Pt able to transfer to chair today although did not leave pt in chair because he was falling asleep. Position pt in left sidelying with pt able to independently roll to the left. PLAN: Continue progressing gait distance and strengthening as he is able to tolerate. TIME: 25 minutes TA/TP Raquel Rashid, [employer]
[2017-12-27] MEDS: Dextrose 50%-Water 25 GM/50 ML SYR IVP (12:11)
[2017-12-27] MEDS: VANCOMYCIN 1,000 MG in Normal Saline 250 ML 167 MG IVPB (12:51)
[2017-12-27] MEDS: MAGNESIUM SULFATE 4 GM/100 ML BAG IVPB (13:38)
[2017-12-27 13:43] LABS: Site Left Radial; pCO2 39 mmHg (34-47); pH 7.35 (7.35-7.45)
[2017-12-27 13:44] LABS: HCO3 22 mmol/L (22-28); pO2 68 mmHg (83-108); sO2 93 % (94-98); tCO2 23 mmol/L (22-29)
--- NOTE | 2017-12-27 15:30 | PDOC.CMPRO ---
- If Service Date Differs Date of service: 12/27/17 Time of Service: 15:30 Care Management Progress Note S/O: Brendan was sitting on the edge of his bed eating lunch when CM visited this afternoon. He is engaged in conversation, makes good eye contact, and is talkative. Brendan reports that he feels he will be ready for discharge on Friday. He will return to the [facility] when discharged from [facility]. Per nursing, Brendan's finger stick was 55 this morning before breakfast and prior to lunch the nurse was not able to wake him. At that time his finger stick was 89. Brendan finally woke and was asymptomatic and reported that he just needed a nap. A: 57 year old male admitted to [facility] 12/24/17 for Fever P: Brendan will return to the [facility] when ready per MD-likely via W/C van. CM will continue to follow-monitor Brendan's clinical status and will offer support to patient, family, and care team regarding discharge planning and disposition.
--- NOTE | 2017-12-27 15:34 | CMPROGNOTE_ITS ---
- If Service Date Differs Date of service: 12/27/17 Time of Service: 15:30 Care Management Progress Note S/O: Brendan was sitting on the edge of his bed eating lunch when CM visited this afternoon. He is engaged in conversation, makes good eye contact, and is talkative. Brendan reports that he feels he will be ready for discharge on Friday. He will return to the [facility] when discharged from [facility]. Per nursing, Brendan's finger stick was 55 this morning before breakfast and prior to lunch the nurse was not able to wake him. At that time his finger stick was 89. Brendan finally woke and was asymptomatic and reported that he just needed a nap. A: 57 year old male admitted to [facility] 12/24/17 for Fever P: Brendan will return to the [facility] when ready per MD-likely via W/C van. CM will continue to follow-monitor Brendan's clinical status and will offer support to patient, family, and care team regarding discharge planning and disposition.
--- NOTE | 2017-12-27 16:39 | PGE_ITS ---
Date of Service Date of service: 12/27/17 Time of Service: 12:00 Assessment and Plan (1) Toxic metabolic encephalopathy: Current visit: Yes Status: Acute Possibly due to polypharmacy with fentanyl patch, high dose gabapentin, nortriptyline, risperidone. At this point, improving. Monitor neurochecks off fentanyl. I have decreased his neurontin. (2) Fever: Current visit: Yes Status: Acute Urine C&S collected after ruiz catheter change is growing edda albicans (10-50,000 CFU) - less likely the real etiology of fever. Blood cx x 12/23/17: NGTD. Possible cellulitis of LE's reported on presentation - continue empiric vanco/zosyn. Other sources: ?R toe infection - podiatry consulted. ?adrenal insufficiency alone (H/o recent enterococcus faecalis UTI, group C strep bacteremia, recent cholecystostomy for acute cholecystitis) (3) Adrenal insufficiency: Current visit: Yes Status: Acute Increase IV hydrocortisone (4) Diabetes mellitus type 2, controlled: Current visit: Yes Status: Chronic With hypoglycemia on This am's labs - I decreased lantus, d/c'ed victoza. Steroids are being increased. Could be part of the adrenal insufficiency picture. (5) Hypertension: Current visit: Yes Status: Chronic No change in tx. (6) Chronic pain: Current visit: Yes Status: Chronic Fentanyl patch d/c'ed and gabapentin halfed - as above (7) CAD (coronary artery disease): Current visit: Yes Status: Chronic Stable - f/u as outpatient (8) Rheumatoid arthritis: Current visit: No Status: Chronic Increase stress dose steroids (9) Crohns disease: Current visit: Yes Status: Chronic Ostomy without issues. Humira on hold (10) CKD (chronic kidney disease): Current visit: Yes Status: Chronic Improved from baseline -continue to monitor (11) DVT prophylaxis: Current visit: No Status: Acute Continue Heparin SC. Also on PPI for GI prophylaxis. Subjective Interval history since last seen: Patient is more somnolent today than his baseline. He would wake up only enough to tell me that he was not in pain. He was no staying awake. His fentanyl patch has now been removed. He was hypoglycemic to 61 this am. His BG was in the 80's when I came to see him - this was treated with 1/2 amp of D50 - and still the patient had a hard time waking up. ABG did not reveal CO2 retention. Exam Narrative Exam Narrative: General: Obese male, obtunded, very difficult to arouse, diaphoretic Neurological: obtunded, difficult to arouse, not following commands Psychiatric: difficult to assess HEENT: When does open eyes, EOMI, MMM, poor dentition Cardiovascular: RRR, no m/r/g Lungs: Diminished breath sounds B Gastrointestinal: Abdomen with a cholecystostomy drain as well as RLQ ileostomy - c/d/i; soft. + bowel sounds Extremities: + 1 edema BLE's Objective Objective Clinical Data: Abnormal lab results 12/27/17 12/27/17 12/27/17 Range/Units 07:30 07:30 13:20 RBC 3.98 L (4.50-6.00) m/cumm Hgb 8.4 L (13.5-17.5) g/dL Hct 29.2 L (40.0-50.0) % MCV 73.4 L (80-95) fL MCH 21.1 L (27.0-33.0) pg MCHC 28.8 L (32.0-36.0) g/dL RDW 18.7 H (11.8-14.1) % Plt Count 462 H (130-400) x1000/uL Absolute Neutrophils 7.68 H (1.2-6.7) k/cumm Absolute Lymphocytes 1.13 L (1.2-3.4) k/cumm Absolute Eosinophils 1.14 H (0.0-0.7) k/cumm pO2 68 L (83-108) mmHg O2 Saturation 93 L (94-98) % ABG Base Excess -4.0 L (-3-3) mmol/L Potassium 3.4 L D (3.5-5.1) mmol/L Chloride 109 H (98-107) mmol/L BUN 21 H (7-18) mg/dL Creatinine 1.89 H (0.70-1.30) mg/dL Glucose 61 L D (70-100) mg/dL Calcium 8.2 L (8.5-10.1) mg/dL Magnesium 1.2 L (1.8-2.4) mg/dL Vital Signs Temperature 36.3 C L 12/27/17 13:01 Temperature Source Tympanic 12/27/17 13:01 Pulse 65 12/27/17 13:01 Pulse 69 12/27/17 12:11 Respiratory Rate 16 12/27/17 13:01 Respiratory Effort 12/27/17 13:01 Respiratory Depth Normal 12/27/17 13:01 Respiratory Pattern Normal 12/27/17 13:01 Blood Pressure 147/66 H 12/27/17 13:01 Blood Pressure Mean 93 12/27/17 13:01 Blood Pressure Position Supine 12/27/17 13:01 Pulse Oximetry 99 12/27/17 13:01 Oxygen Delivery Method Room Air 12/27/17 13:01 Oxygen Flow Rate 0 12/27/17 13:01 Pain Level 0 12/27/17 13:01 Intake & Output 12/26/17 12/27/17 12/27/17 23:59 11:59 23:59 Intake Total 1060 / 1060 340 / 340 550 / 550 Output Total 1700 / 1700 700 / 700 1500 / 1500 Balance -640 / -640 -360 / -360 -950 / -950 Weight 116.7 kg Intake: IV 100 / 100 100 / 100 550 / 550 Oral 960 / 960 240 / 240 Output: Drainage 300 / 300 150 / 150 350 / 350 Right Lower Abdomen 300 / 300 150 / 150 350 / 350 Urine 950 / 950 350 / 350 1150 / 1150 Stool 450 / 450 200 / 200 Other: Urine Color Yellow Yellow Yellow Urine Appearance Sediment Clear Clear Comment ruiz ruiz ruiz Laboratory Results WBC 10.69 k/cumm (4.4-10.8) 12/27/17 07:30 RBC 3.98 m/cumm (4.50-6.00) L 12/27/17 07:30 Hgb 8.4 g/dL (13.5-17.5) L 12/27/17 07:30 Hct 29.2 % (40.0-50.0) L 12/27/17 07:30 MCV 73.4 fL (80-95) L 12/27/17 07:30 MCH 21.1 pg (27.0-33.0) L 12/27/17 07:30 MCHC 28.8 g/dL (32.0-36.0) L 12/27/17 07:30 RDW 18.7 % (11.8-14.1) H 12/27/17 07:30 Plt Count 462 x1000/uL (130-400) H 12/27/17 07:30 MPV 10.0 fL (8.0-11.0) 12/27/17 07:30 Immature Gran % 0.5 12/27/17 07:30 Neutrophils % 71.7 12/27/17 07:30 Lymphocytes % 10.6 12/27/17 07:30 Monocytes % 6.2 12/27/17 07:30 Eosinophils % 10.7 12/27/17 07:30 Basophils % 0.3 12/27/17 07:30 Absolute Neutrophils 7.68 k/cumm (1.2-6.7) H 12/27/17 07:30 Absolute Lymphocytes 1.13 k/cumm (1.2-3.4) L 12/27/17 07:30 Absolute Monocytes 0.66 k/cumm (0.11-0.7) 12/27/17 07:30 Absolute Eosinophils 1.14 k/cumm (0.0-0.7) H 12/27/17 07:30 Absolute Basophils 0.03 k/cumm (0.0-0.2) 12/27/17 07:30 Differential Comment Agrees w/ instrument 12/27/17 07:30 Atypical Lymphocytes 1 12/24/17 07:05 RBC Morphology See below 12/27/17 07:30 Polychromasia Present 12/26/17 05:12 Hypochromasia 2+ 12/27/17 07:30 Anisocytosis 2+ 12/26/17 05:12 Microcytosis 2+ 12/27/17 07:30 Ovalocytes 2+ 12/27/17 07:30 Sample Site Left radial 12/27/17 13:20 pCO2 39 mmHg (34-47) 12/27/17 13:20 pO2 68 mmHg (83-108) L 12/27/17 13:20 O2 Saturation 93 % (94-98) L 12/27/17 13:20 ABG pH 7.35 (7.35-7.45) 12/27/17 13:20 ABG HCO3 22 mmol/L (22-28) 12/27/17 13:20 ABG Total CO2 23 mmol/L (22-29) 12/27/17 13:20 ABG Base Excess -4.0 mmol/L (-3-3) L 12/27/17 13:20 Sodium 143 mmol/L (136-145) 12/27/17 07:30 Potassium 3.4 mmol/L (3.5-5.1) L D 12/27/17 07:30 Chloride 109 mmol/L (98-107) H 12/27/17 07:30 Carbon Dioxide 23.6 mmol/L (21.0-32.0) 12/27/17 07:30 Anion Gap 10.4 mmol/L (3-11) 12/27/17 07:30 BUN 21 mg/dL (7-18) H 12/27/17 07:30 Creatinine 1.89 mg/dL (0.70-1.30) H 12/27/17 07:30 Estimated GFR/1.73 m2 36.82 (mL/min/1.73m2) 12/27/17 07:30 Glucose 61 mg/dL (70-100) L D 12/27/17 07:30 Lactate 1.2 mmol/L (0.6-1.4) 12/23/17 21:28 Calcium 8.2 mg/dL (8.5-10.1) L 12/27/17 07:30 Magnesium 1.2 mg/dL (1.8-2.4) L 12/27/17 07:30 Total Bilirubin 0.3 mg/dL (0.2-1.0) 12/23/17 21:28 AST 11 U/L (15-37) L 12/23/17 21:28 ALT 12 U/L (12-78) 12/23/17 21:28 Alkaline Phosphatase 316 U/L (46-116) H 12/23/17 21:28 Total Protein 7.6 g/dL (6.4-8.2) 12/23/17 21:28 Albumin 2.1 g/dL (3.4-5.0) L 12/23/17 21:28 Urine Color Yellow (Yellow) 12/25/17 18:55 Urine Clarity Cloudy 12/25/17 18:55 Urine pH 6.0 (5-8) 12/25/17 18:55 Ur Specific [place] 1.020 (1.005-1.025) 12/25/17 18:55 Urine Protein 100 mg/dL (Negative) H 12/25/17 18:55 Urine Ketones Negative mg/dL (Negative) 12/25/17 18:55 Urine Blood Moderate (Negative) H 12/25/17 18:55 Urine Nitrite Negative (Negative) 12/25/17 18:55 Urine Bilirubin Negative (Negative) 12/25/17 18:55 Urine Urobilinogen 0.2 EU/dL (Up TO 0.2) 12/25/17 18:55 Ur Leukocyte Esterase Moderate (Negative) H 12/25/17 18:55 Urine RBC >50 (0-2) H 12/25/17 18:55 Urine WBC >50 HPF (0-5) 12/25/17 18:55 Ur Epithelial Cells Few HPF (Negative) 12/25/17 18:55 Urine Crystals Negative HPF (Negative) 12/25/17 18:55 Urine Bacteria Many HPF (Negative) 12/25/17 18:55 Urine Casts 0-2 coarse granular LPF (Negative) 12/25/17 18:55 Urine Mucus Negative (Negative) 12/25/17 18:55 Urine Other Negative (Negative) 12/25/17 18:55 Ur Culture Indicated? Yes 12/25/17 18:55 Urine Glucose Negative mg/dL (Negative) 12/25/17 18:55 Vancomycin Trough 30.7 ug/mL (10.0-20.0) H* 12/26/17 05:12
[2017-12-27] MEDS: Insulin Aspart 300 UNITS/3 ML PEN SC (17:24)
[2017-12-27] MEDS: Gabapentin 400 MG CAP PO (21:26)
[2017-12-27] MEDS: risperiDONE 1 MG TAB 3 MG PO (21:26)
[2017-12-27] MEDS: traZODone 50 MG TAB PO (21:27)
[2017-12-28] VITALS (36 sets, daily range): BP systolic 154–193; BP diastolic 59–109; PULSE 57–85; RESP 14–32; TEMP 36.5–37.5; O2SAT 99–100
[2017-12-28] MEDS: Heparin 5,000 UNITS/ML VIAL 5000 UNITS SC ×3 (00:10→17:23)
[2017-12-28] MEDS: PIPERACILLIN/TAZO 3.375 GM in Normal Saline 50 ML IVPB ×4 (02:58→21:20)
[2017-12-28] MEDS: VANCOMYCIN 1,000 MG in Normal Saline 250 ML 166.667 MG IVPB ×2 (04:25→21:20)
[2017-12-28] MEDS: VANCOMYCIN 2,000 MG in Normal Saline 500 ML 167 MG IVPB (05:00)
[2017-12-28] MEDS: Levothyroxine 50 MCG TAB PO (05:40)
[2017-12-28 07:14] LABS: Abs Immature Grans 0.06 k/cumm (0.0-0.09); Absolute Basophil Count 0.04 k/cumm (0.0-0.2); Absolute Lymphocyte Count 1.31 k/cumm (1.2-3.4); Absolute Monocyte Count 0.52 k/cumm (0.11-0.7); Absolute Neutrophil Count 6.37 k/cumm (1.2-6.7); Basophils % 0.5; Eosinophils % 5.7; HGB 8.2 g/dL (13.5-17.5); Immature Grans % 0.7; Lymphocytes % 14.9; Mean Corp. HGB Concentration 29.3 g/dL (32.0-36.0); Mean Corpuscular Hemoglobin 21.2 pg (27.0-33.0); Mean Corpuscular Volume 72.4 fL (80-95); Mean Platelet Volume 9.7 fL (8.0-11.0); Monocytes % 5.9; Neutrophils % 72.3; Platelet Count 466 x1000/uL (130-400); RBC 3.87 m/cumm (4.50-6.00); RBC Distribution Width 18.5 % (11.8-14.1)
[2017-12-28 07:28] LABS: Anion Gap 9.8 mmol/L (3-11); BUN 18 mg/dL (7-18); CO2 23.2 mmol/L (21.0-32.0); CREATININE 2.09 mg/dL (0.70-1.30); Calcium 8.4 mg/dL (8.5-10.1); Chloride 109 mmol/L (98-107); Estimated GFR 32.78 (mL/min/1.73m2); Glucose 130 mg/dL (70-100); Magnesium 1.7 mg/dL (1.8-2.4); Potassium 3.8 mmol/L (3.5-5.1); Sodium 142 mmol/L (136-145)
[2017-12-28] MEDS: Normal Saline 500 ML 30 ML IV (08:03)
[2017-12-28] MEDS: Normal Saline Flush 10 ML SYR IVP ×2 (09:10→21:27)
[2017-12-28] MEDS: Cyanocobalamin 500 MCG TAB 1000 MCG PO (09:11)
[2017-12-28] MEDS: Omega-3 Fatty Acids 1000 MG CAP 2000 MG PO (09:11)
[2017-12-28] MEDS: Acetaminophen 500 MG TAB PO ×2 (09:11→21:22)
[2017-12-28] MEDS: Aspirin E.C. 81 MG TABEC PO ×2 (09:12→21:26)
[2017-12-28] MEDS: Sertraline 25 MG TAB PO (09:12)
[2017-12-28] MEDS: Multivitamin w/Minerals TAB 1 TAB PO (09:12)
[2017-12-28] MEDS: Folic Acid 1 MG TAB PO (09:12)
[2017-12-28] MEDS: Furosemide 40 MG TAB PO (09:12)
[2017-12-28] MEDS: amLODIPine 5 MG TAB PO (09:12)
[2017-12-28] MEDS: Loperamide 2 MG CAP PO (09:12)
[2017-12-28] MEDS: carBAMazepine 100 MG CHEW PO ×3 (09:13→21:25)
[2017-12-28] MEDS: Venlafaxine 75 MG TAB PO ×3 (09:14→21:25)
[2017-12-28] MEDS: Hydrocortisone SOD SUC. 100 MG VIAL 50 MG IVP ×2 (09:19→21:26)
[2017-12-28] MEDS: Ascorbic Acid 500 MG TAB PO ×2 (09:32→21:23)
[2017-12-28] MEDS: Ferrous Sulfate 325 MG TAB PO ×2 (09:32→21:25)
[2017-12-28] MEDS: MAGNESIUM SULFATE 1 GM/100 ML BAG IVPB (09:32)
[2017-12-28] MEDS: Gabapentin 600 MG TAB PO ×3 (09:32→21:25)
[2017-12-28] MEDS: Lidocaine 5% Patch 1 PATCH TP (09:33)
[2017-12-28] MEDS: Pantoprazole 40 MG TABCR PO (09:33)
[2017-12-28] MEDS: Insulin Glargine 300 UNITS/3 ML PEN 30 UNITS SC (10:23)
[2017-12-28] MEDS: cloNIDine 0.1 MG TAB 0.3 MG PO ×2 (10:28→21:24)
--- NOTE | 2017-12-28 11:14 | PT.INNT ---
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
[2017-12-28] MEDS: Lachydrin 12% LOTION 225 GM BTL TP ×2 (11:17→21:23)
[2017-12-28] MEDS: Nystatin POWDER 15 GM JAR TP ×2 (11:30→21:23)
[2017-12-28] MEDS: Insulin Aspart 300 UNITS/3 ML PEN SC ×2 (12:59→17:23)
--- NOTE | 2017-12-28 13:49 | PDOC.CMPRO ---
Care Management Progress Note S/O: Brendan did not sleep much last night per RN; Luna. The ICU RNs were helping Brendan clean up when CM attempted to meet with him. CM spoke with Meg at the [facility] who reported anticipating Brendan's return tomorrow. No change to overall plan. A: 57 year old male admitted to [facility] 12/24/17 for Fever P: Brendan will return to the [facility] when ready per MD-likely via W/C van. CM will continue to follow-monitor Brendan's clinical status and will offer support to patient, family, and care team regarding discharge planning and disposition.
--- NOTE | 2017-12-28 13:52 | CMPROGNOTE_ITS ---
Care Management Progress Note S/O: Brendan did not sleep much last night per RN; Luna. The ICU RNs were helping Brendan clean up when CM attempted to meet with him. CM spoke with Meg at the [facility] who reported anticipating Brendan's return tomorrow. No change to overall plan. A: 57 year old male admitted to [facility] 12/24/17 for Fever P: Brendan will return to the [facility] when ready per MD-likely via W/C van. CM will continue to follow-monitor Brendan's clinical status and will offer support to patient, family, and care team regarding discharge planning and disposition.
--- NOTE | 2017-12-28 17:08 | W.PM.PROGNOT ---
Date of Service Date of service: 12/28/17 Time of Service: 10:35 Assessment and Plan (1) Toxic metabolic encephalopathy: Current visit: Yes Status: Resolved At baseline. Etiology unclear - differential diagnosis includes polypharmacy with fentanyl patch, high dose gabapentin, nortriptyline, risperidone. ? sepsis. ?adrenal insufficiency. As doing better, will go back up on gabapentin. Continue to hold fentanyl patch. (2) Fever: Current visit: Yes Status: Acute Most likely etiology is cellulitis LE's present on admission. Urine C&S collected after ruiz catheter change w/ edda albicans (10-50,000 CFU) - less likely the real etiology of fever. Blood cx x 04/05/29: NGTD. Improving on vancomycin/zosyn. Other sources: ?R toe infection - podiatry consulted. ?adrenal insufficiency alone (H/o recent enterococcus faecalis UTI, group C strep bacteremia, recent cholecystostomy for acute cholecystitis) (3) Adrenal insufficiency: Current visit: Yes Status: Acute Continue current dose of IV hydrocortisone - start tapering tomorrow. No hypoglycemia today. (4) Diabetes mellitus type 2, controlled: Current visit: Yes Status: Chronic No hypoglycemia. Continue decreased dose of lantus; hold victoza. (5) Hypertension: Current visit: Yes Status: Chronic Increase clonidine to TID. Would increase norvasc to 10 mg tomorrow if still hypertensive. (6) Chronic pain: Current visit: Yes Status: Chronic Fentanyl patch d/c'ed. Ok to increase gabapentin dose now that mental status is better. (7) CAD (coronary artery disease): Current visit: Yes Status: Chronic Stable - f/u as outpatient (8) Rheumatoid arthritis: Current visit: No Status: Chronic on stress dose steroids - start to taper tomorrow. (9) Crohns disease: Current visit: Yes Status: Chronic Ostomy without issues. Humira on hold (10) CKD (chronic kidney disease): Current visit: Yes Status: Chronic Improved from baseline -continue to monitor (11) DVT prophylaxis: Current visit: No Status: Acute Continue Heparin SC. Also on PPI for GI prophylaxis. Subjective Interval history since last seen: Much more awake and alert today. He denies any pain, dizziness, shortness of breath, nausea, vomiting. Tolerating PO feedings. Had a difficult time sleeping last night, but took a nap this morning. Exam Narrative Exam Narrative: General: Obese male, sitting at the side of the bed, eating Neurological: A&Ox3, no focal deficits Psychiatric: irritable/confrontational, but rational/can be reoriented HEENT: EOMI, MMM, poor dentition Cardiovascular: RRR, no m/r/g Lungs: Diminished breath sounds B Gastrointestinal: Abdomen with a cholecystostomy drain as well as RLQ ileostomy - c/d/i; soft. + bowel sounds Extremities: chronic venous stasis dermatitis; no erythema. +1 edema in BLE's Objective Objective Clinical Data: Abnormal lab results 12/28/17 12/28/17 Range/Units 06:45 06:45 RBC 3.87 L (4.50-6.00) m/cumm Hgb 8.2 L (13.5-17.5) g/dL Hct 28.0 L (40.0-50.0) % MCV 72.4 L (80-95) fL MCH 21.2 L (27.0-33.0) pg MCHC 29.3 L (32.0-36.0) g/dL RDW 18.5 H (11.8-14.1) % Plt Count 466 H (130-400) x1000/uL Chloride 109 H (98-107) mmol/L Creatinine 2.09 H (0.70-1.30) mg/dL Glucose 130 H (70-100) mg/dL Calcium 8.4 L (8.5-10.1) mg/dL Magnesium 1.7 L (1.8-2.4) mg/dL Vital Signs Temperature 37.1 C 12/28/17 12:15 Temperature Source Temporal Artery Scan 12/28/17 12:15 Pulse 72 12/28/17 14:28 Pulse 74 12/28/17 14:28 Respiratory Rate 28 H 12/28/17 14:28 Respiratory Effort 12/28/17 12:15 Respiratory Depth Normal 12/28/17 12:15 Respiratory Pattern Normal 12/28/17 12:15 Blood Pressure 180/74 H 12/28/17 14:28 Blood Pressure Mean 99 12/28/17 14:28 Blood Pressure Position Sitting 12/28/17 12:15 Pulse Oximetry 99 12/28/17 12:15 Oxygen Delivery Method Room Air 12/28/17 12:15 Oxygen Flow Rate 0 12/28/17 12:15 Pain Level 0 12/28/17 12:15 Intake & Output 12/28/17 12/28/17 12/28/17 00:59 11:59 23:59 Intake Total 1010 / 1010 Output Total 995 / 995 Balance 15 Weight Intake: IV 50 / 50 Oral 960 / 960 Injectate Right Lower Abdomen Output: Drainage 60 / 60 Right Lower Abdomen 60 / 60 Urine 775 / 775 Stool 160 / 160 Other: Urine Color Straw Urine Appearance Cloudy Sediment Comment Magalie care and cath care done this a.m. at 1130 Laboratory Results WBC 8.80 k/cumm (4.4-10.8) 12/28/17 06:45 RBC 3.87 m/cumm (4.50-6.00) L 12/28/17 06:45 Hgb 8.2 g/dL (13.5-17.5) L 12/28/17 06:45 Hct 28.0 % (40.0-50.0) L 12/28/17 06:45 MCV 72.4 fL (80-95) L 12/28/17 06:45 MCH 21.2 pg (27.0-33.0) L 12/28/17 06:45 MCHC 29.3 g/dL (32.0-36.0) L 12/28/17 06:45 RDW 18.5 % (11.8-14.1) H 12/28/17 06:45 Plt Count 466 x1000/uL (130-400) H 12/28/17 06:45 MPV 9.7 fL (8.0-11.0) 12/28/17 06:45 Immature Gran % 0.7 12/28/17 06:45 Neutrophils % 72.3 12/28/17 06:45 Lymphocytes % 14.9 12/28/17 06:45 Monocytes % 5.9 12/28/17 06:45 Eosinophils % 5.7 12/28/17 06:45 Basophils % 0.5 12/28/17 06:45 Absolute Neutrophils 6.37 k/cumm (1.2-6.7) 12/28/17 06:45 Absolute Lymphocytes 1.31 k/cumm (1.2-3.4) 12/28/17 06:45 Absolute Monocytes 0.52 k/cumm (0.11-0.7) 12/28/17 06:45 Absolute Eosinophils 0.50 k/cumm (0.0-0.7) 12/28/17 06:45 Absolute Basophils 0.04 k/cumm (0.0-0.2) 12/28/17 06:45 Differential Comment Agrees w/ instrument 12/27/17 07:30 Atypical Lymphocytes 1 12/24/17 07:05 RBC Morphology See below 12/27/17 07:30 Polychromasia Present 12/26/17 05:12 Hypochromasia 2+ 12/27/17 07:30 Anisocytosis 2+ 12/26/17 05:12 Microcytosis 2+ 12/27/17 07:30 Ovalocytes 2+ 12/27/17 07:30 Sample Site Left radial 12/27/17 13:20 pCO2 39 mmHg (34-47) 12/27/17 13:20 pO2 68 mmHg (83-108) L 12/27/17 13:20 O2 Saturation 93 % (94-98) L 12/27/17 13:20 ABG pH 7.35 (7.35-7.45) 12/27/17 13:20 ABG HCO3 22 mmol/L (22-28) 12/27/17 13:20 ABG Total CO2 23 mmol/L (22-29) 12/27/17 13:20 ABG Base Excess -4.0 mmol/L (-3-3) L 12/27/17 13:20 Sodium 142 mmol/L (136-145) 12/28/17 06:45 Potassium 3.8 mmol/L (3.5-5.1) 12/28/17 06:45 Chloride 109 mmol/L (98-107) H 12/28/17 06:45 Carbon Dioxide 23.2 mmol/L (21.0-32.0) 12/28/17 06:45 Anion Gap 9.8 mmol/L (3-11) 12/28/17 06:45 BUN 18 mg/dL (7-18) 12/28/17 06:45 Creatinine 2.09 mg/dL (0.70-1.30) H 12/28/17 06:45 Estimated GFR/1.73 m2 32.78 (mL/min/1.73m2) 12/28/17 06:45 Glucose 130 mg/dL (70-100) H 12/28/17 06:45 Lactate 1.2 mmol/L (0.6-1.4) 12/23/17 21:28 Calcium 8.4 mg/dL (8.5-10.1) L 12/28/17 06:45 Magnesium 1.7 mg/dL (1.8-2.4) L 12/28/17 06:45 Total Bilirubin 0.3 mg/dL (0.2-1.0) 12/23/17 21:28 AST 11 U/L (15-37) L 12/23/17 21:28 ALT 12 U/L (12-78) 12/23/17 21:28 Alkaline Phosphatase 316 U/L (46-116) H 12/23/17 21:28 Total Protein 7.6 g/dL (6.4-8.2) 12/23/17 21: Albumin 2.1 g/dL (3.4-5.0) L 12/23/17 21:28 Urine Color Yellow (Yellow) 12/25/17 18:55 Urine Clarity Cloudy 12/25/17 18:55 Urine pH 6.0 (5-8) 12/25/17 18:55 Ur Specific [place] 1.020 (1.005-1.025) 12/25/17 18:55 Urine Protein 100 mg/dL (Negative) H 12/25/17 18:55 Urine Ketones Negative mg/dL (Negative) 12/25/17 18:55 Urine Blood Moderate (Negative) H 12/25/17 18:55 Urine Nitrite Negative (Negative) 12/25/17 18:55 Urine Bilirubin Negative (Negative) 12/25/17 18:55 Urine Urobilinogen 0.2 EU/dL (Up TO 0.2) 12/25/17 18:55 Ur Leukocyte Esterase Moderate (Negative) H 12/25/17 18:55 Urine RBC >50 (0-2) H 12/25/17 18:55 Urine WBC >50 HPF (0-5) 12/25/17 18:55 Ur Epithelial Cells Few HPF (Negative) 12/25/17 18:55 Urine Crystals Negative HPF (Negative) 12/25/17 18:55 Urine Bacteria Many HPF (Negative) 12/25/17 18:55 Urine Casts 0-2 coarse granular LPF (Negative) 12/25/17 18:55 Urine Mucus Negative (Negative) 12/25/17 18:55 Urine Other Negative (Negative) 12/25/17 18:55 Ur Culture Indicated? Yes 12/25/17 18:55 Urine Glucose Negative mg/dL (Negative) 12/25/17 18:55 Vancomycin Trough 30.7 ug/mL (10.0-20.0) H* 12/26/17 05:12
[2017-12-28] MEDS: cloNIDine 0.1 MG TAB PO (18:33)
[2017-12-28] MEDS: traZODone 50 MG TAB PO (21:23)
[2017-12-28] MEDS: Patch Removal 1 EACH TP (21:26)
[2017-12-28] MEDS: risperiDONE 1 MG TAB 3 MG PO (21:26)
[2017-12-29] VITALS (17 sets, daily range): BP systolic 160–198; BP diastolic 76–92; PULSE 63–88; RESP 20–21; TEMP 36.2–36.9; O2SAT 97
[2017-12-29] MEDS: Heparin 5,000 UNITS/ML VIAL 5000 UNITS SC ×4 (00:52→23:15)
[2017-12-29] MEDS: cloNIDine 0.1 MG TAB PO (00:56)
[2017-12-29] MEDS: PIPERACILLIN/TAZO 3.375 GM in Normal Saline 50 ML IVPB ×4 (03:34→21:24)
[2017-12-29 07:07] LABS: Abs Immature Grans 0.09 k/cumm (0.0-0.09); Absolute Basophil Count 0.05 k/cumm (0.0-0.2); Absolute Eosinophil Count 0.47 k/cumm (0.0-0.7); Absolute Monocyte Count 0.46 k/cumm (0.11-0.7); Absolute Neutrophil Count 8.31 k/cumm (1.2-6.7); Basophils % 0.5; Eosinophils % 4.3; HCT 29.4 % (40.0-50.0); HGB 8.5 g/dL (13.5-17.5); Immature Grans % 0.8; Lymphocytes % 13.8; Mean Corp. HGB Concentration 28.9 g/dL (32.0-36.0); Mean Corpuscular Hemoglobin 21.1 pg (27.0-33.0); Mean Platelet Volume 9.7 fL (8.0-11.0); Monocytes % 4.2; Neutrophils % 76.4; Platelet Count 486 x1000/uL (130-400); RBC 4.03 m/cumm (4.50-6.00); RBC Distribution Width 18.7 % (11.8-14.1); White Blood Cell Count 10.88 k/cumm (4.4-10.8)
[2017-12-29 07:23] LABS: Anion Gap 9.6 mmol/L (3-11); BUN 19 mg/dL (7-18); CO2 24.4 mmol/L (21.0-32.0); CREATININE 1.87 mg/dL (0.70-1.30); Calcium 8.4 mg/dL (8.5-10.1); Chloride 109 mmol/L (98-107); Estimated GFR 37.27 (mL/min/1.73m2); Glucose 166 mg/dL (70-100); Magnesium 1.9 mg/dL (1.8-2.4); Potassium 4.2 mmol/L (3.5-5.1); Sodium 143 mmol/L (136-145)
[2017-12-29] MEDS: Hydrocortisone SOD SUC. 100 MG VIAL 50 MG IVP (07:55)
[2017-12-29] MEDS: Normal Saline Flush 10 ML SYR IVP ×2 (07:55→16:43)
[2017-12-29] MEDS: Folic Acid 1 MG TAB PO (07:55)
[2017-12-29] MEDS: Venlafaxine 75 MG TAB PO ×3 (07:55→20:25)
[2017-12-29] MEDS: Multivitamin w/Minerals TAB 1 TAB PO (07:55)
[2017-12-29] MEDS: Ferrous Sulfate 325 MG TAB PO ×2 (07:56→20:24)
[2017-12-29] MEDS: Furosemide 40 MG TAB PO (07:56)
[2017-12-29] MEDS: Cyanocobalamin 500 MCG TAB 1000 MCG PO (07:56)
[2017-12-29] MEDS: Omega-3 Fatty Acids 1000 MG CAP 2000 MG PO (07:56)
[2017-12-29] MEDS: Sertraline 25 MG TAB PO (07:56)
[2017-12-29] MEDS: Ascorbic Acid 500 MG TAB PO ×2 (07:56→20:23)
[2017-12-29] MEDS: Loperamide 2 MG CAP PO (07:56)
[2017-12-29] MEDS: carBAMazepine 100 MG CHEW PO ×3 (07:56→20:23)
[2017-12-29] MEDS: Gabapentin 600 MG TAB PO ×2 (07:56→13:39)
[2017-12-29] MEDS: amLODIPine 5 MG TAB PO ×2 (07:56→10:31)
[2017-12-29] MEDS: Pantoprazole 40 MG TABCR PO (07:57)
[2017-12-29] MEDS: Acetaminophen 500 MG TAB PO ×2 (07:57→20:22)
[2017-12-29] MEDS: Aspirin E.C. 81 MG TABEC PO ×2 (07:57→20:23)
[2017-12-29] MEDS: cloNIDine 0.1 MG TAB 0.3 MG PO ×3 (07:57→20:24)
[2017-12-29] MEDS: Levothyroxine 50 MCG TAB PO (07:57)
[2017-12-29] MEDS: Insulin Aspart 300 UNITS/3 ML PEN SC ×3 (08:01→16:43)
[2017-12-29] MEDS: Insulin Glargine 300 UNITS/3 ML PEN 30 UNITS SC (08:31)
[2017-12-29] MEDS: Lachydrin 12% LOTION 225 GM BTL TP ×2 (08:31→21:30)
[2017-12-29] MEDS: Nystatin POWDER 15 GM JAR TP ×3 (08:32→21:33)
--- NOTE | 2017-12-29 09:14 | PT.INTREAT ---
Date of service: 12/29/17 Time of Service: 09:14 PT Notes Inpatient Physical Therapy Treatment Note Date: 12/29/17 PRECAUTIONS: Skin, Fall SUBJECTIVE: Brendan is agreeable to PT with some encouragement. OBJECTIVE: PAIN: Patient c/o glute soreness due to sores BED MOBILITY/TRANSFERS Sit-stand: S Stand-sit: S GAIT Assistive Device: FWW Weight bearing: WBAT on R Assist: SBA Distance: 5' THEREX: Patient completed a LE strengthening program, as per flow sheet. Patient tolerated the addition of hip flexion and hip abduction, well. ASSESSMENT: Patient tolerated session well. He would benefit from continued strengthening and gait and transfer training to improve endurance and mobility. PLAN: Continue with PT's POC TREATMENT CODE/TIME: 25 minutes; TA/TP
--- NOTE | 2017-12-29 09:55 | PDOC.CMPRO ---
Care Management Progress Note S/O: CM faxed updated clinicals to the [facility] for review. Per MD, Brendan will meet with Machine Room Operator, and continue to be monitored as source of [id number] insufficiency remains unclear. Brendan was sitting up in his chair, alert and oriented. He had some questions to review with this mortgage or loan underwriter regarding his current service supports and options for transitioning to a private home in the community. CM reviewed known information such as CFC status and documented residential case manager Maria C Farr, as well general information regarding [facility]FC LTC Waivers. Brendan expressed interest in the [facility]; CM provided education around different catchment areas and connecting to resources. CM sent an email to Maria C Farr and the [facility] notifying of Brendan's wishes. A: 57 year old male admitted to [facility] 12/24/17 for Fever P: Brendan will return to the [facility] when ready per MD-likely via W/C van. CM will continue to follow-monitor Brendan's clinical status and will offer support to patient, family, and care team regarding discharge planning and disposition.
--- NOTE | 2017-12-29 10:13 | CMPROGNOTE_ITS ---
Care Management Progress Note S/O: CM faxed updated clinicals to the [facility] for review. Per MD, Brendan will meet with Extended Insurance Clerk, and continue to be monitored as source of [id number] insufficiency remains unclear. Brendan was sitting up in his chair, alert and oriented. He had some questions to review with this report writer regarding his current service supports and options for transitioning to a private home in the community. CM reviewed known information such as CFC status and documented vocational case manager Maria C Farr, as well general information regarding CFC LTC Waivers. Brendan expressed interest in the [facility]; CM provided education around different catchment areas and connecting to resources. CM sent an email to Maria C Farr and the [facility] notifying of Brendan's wishes. A: 57 year old male admitted to [facility] 12/24/17 for Fever P: Brendan will [facility] when ready per MD-likely via W/C van. CM will continue to follow-monitor Brendan's clinical status and will offer support to patient, family, and care team regarding discharge planning and disposition.
--- NOTE | 2017-12-29 11:27 | SATEXT_ITS ---
Assessment: Nutrition consult for wounds. Mr. Corley has excellent PO intake with assistance on carbohydrate controlled nutrition therapy. He is eating 100 % of most of his meals which is approximately 1800 calories and 68 grams of protein. He is 72 and 111.3 kg. His BMI is 32.4 kg/m2 consistent with class 1 obesity. His estimated energy needs are 2365 kcal/day (REE x 1.2) for weight maintenance at this time. Estimated protein needs are 102-132 g/day (1.0-1.3 g/ kg adjusted IBW of 102 kg). Nutritional Diagnosis: Increased need for nutrients related to wounds. Intervention: Suggest increasing calories for Mr. Corley to 2400 kcal/day so that his diet order is carbohydrate controlled diet and 2400 calories per day in the comments. I was not able to speak with him this morning. I will visit him this afternoon. I will ask him to trial adding additional protein portions at his meals to increase calories and protein and/or trial a liquid nutritional supplement to meet his calorie and protein needs. Will also ask him to trial a Enrique supplement which can be added to a cold drink that he is already drinking or we have flavored Enrique. Enrique is a glutamine and arginine supplement, so that theoretically he can use the glutamine and arginine specifically for wound healing if he is getting enough calories and protein. Monitoring and Evaluation: 1. Will monitor his tolerance to supplements and to an increase in PO intake. 2. Will evaluate his nutrition care plan ongoing and adjust accordingly. Thank you for the consult.
--- NOTE | 2017-12-29 11:44 | PTTR_ITS ---
Date of service: 12/29/17 Time of Service: 11:43 PT Notes Inpatient Physical Therapy Treatment Note Date: 12/29/17 PRECAUTIONS: Skin, Fall SUBJECTIVE: Brendan needed encouragement to participate in PT. He reports that he can't sit up too long or he gets sore. He also states that he does not have his shoes, so he is unwilling to walk further than from bed<>chair. OBJECTIVE: PAIN: No c/o pain BED MOBILITY/TRANSFERS Supine-sit: I Sit-stand: S Stand-sit: S Bed-Chair: SBA GAIT Assistive Device: FWW Weight bearing: WBAT on R Assist: SBA Distance: 5' THEREX: Patient performed static standing x1 minute with SBA, then completed a LE strengthening program, as per flow sheet. He was able to tolerate a slight progression in his program today, see flow sheet for modifications made to reps. ASSESSMENT: Patient tolerated a slight progression in his ther ex program today , although refused to progress gait distance due to not having shoes. He would benefit from continued gait and transfer training as well as strengthening for improved mobility and activity tolerance. PLAN: Continue with PT's POC TREATMENT CODE/TIME: 25 minutes; TA/TP
--- NOTE | 2017-12-29 13:45 | DM INPTCON_ITS ---
DESCRIPTION/ASSESSMENT: Appreciate diabetes consult for Brendan Corley who is hospitalized with fever and cellulitis. BMI 32 A1c 6.8 Brendan has had blood sugars ranging 143-234 until 3 days ago when he became hypoglycemic on his usual insulin regimen of 40u Lantus twice daily with insulin correction with meals at the moderate level. Since then he has received half his usual Lantus dose now reduced to 30u once daily. Since this change, blood sugars are 106=927vn/dl. His usual dose of mealtime insulin is recorded in his Home Medication list as 40u Lispro and 50u Aspart PM as well as Victoza. Brendan is eating, when recorded, 100% of his meals and 15-45 grams carbohydrate per meal over the past few days. Today with minimal insulin his blood sugar increased between breakfast and lunch 153 to 192 eating 15 grams carbohydrate. It appears he could benefit from a mealtime insulin regimen given he frequently requires insulin correction with his meals. Overall, however, his blood sugars have improved with less basal insulin. INTERVENTION: Suggest adding mealtime insulin at 4 units per meal which has been his correction that has kept is blood sugars from increasing more than 40mg /dl. An alternative would be 1 unit for 10grams carbohydrate. PLAN: Will follow blood sugars.
[2017-12-29] MEDS: VANCOMYCIN 1,000 MG in Normal Saline 250 ML 166.6 MG IVPB (15:56)
--- NOTE | 2017-12-29 17:08 | PGE_ITS ---
Date of Service Date of service: 12/29/17 Time of Service: 12:15 Assessment and Plan (1) Fever: Current visit: Yes Status: Acute Likely due to cellulitis LE's present on admission. Urine C&S collected after ruiz catheter change w/ edda albicans (10-50,000 CFU) - less likely the real etiology of fever. Blood cx x 04/05/29: NGTD. Improving on vancomycin /zosyn. Other sources: ?R toe infection - podiatry consulted. ?adrenal insufficiency also contributing to fever. Independent of etiology, he has improved with broad spectrum abx and stress dose steroids. He should complete 1 week of empiric antibiotics. (H/o recent enterococcus faecalis UTI, group C strep bacteremia, recent cholecystostomy for acute cholecystitis) (2) Toxic metabolic encephalopathy: Current visit: Yes Status: Resolved Resolved, mental status at baseline. Etiology - differential diagnosis includes polypharmacy with fentanyl patch, high dose gabapentin, nortriptyline, risperidone. ? sepsis. ?adrenal insufficiency. The patient has not demonstrated any need for narcotic medications at all on this admission - so they should not be resumed on discharge. (3) Adrenal insufficiency: Current visit: Yes Status: Acute Stress dose steroids are being tapered. Prednisone at home dose to start tomorrow. (4) Diabetes mellitus type 2, controlled: Current visit: Yes Status: Chronic No hypoglycemia. Continue current doses of basal bolus insulin. Diet to be changed to accomodate his coloric needs. (5) Hypertension: Current visit: Yes Status: Chronic Clonidine and norvasc increased. Add beta blockers. (6) Chronic pain: Current visit: Yes Status: Chronic Not requiring narcotics. D/c'ed. (7) CAD (coronary artery disease): Current visit: Yes Status: Chronic Add beta blockers. (8) Rheumatoid arthritis: Current visit: No Status: Chronic Tapering stress dose steroids (9) Crohns disease: Current visit: Yes Status: Chronic Ostomy without issues. Humira on hold (10) CKD (chronic kidney disease): Current visit: Yes Status: Chronic Improved from baseline -continue to monitor (11) DVT prophylaxis: Current visit: No Status: Acute Continue Heparin SC (hem+ stools expected with Crohn's disease. H/H remains stable. Benefits of DVT ppx outweight the risks). Also on PPI for GI prophylaxis. Subjective Interval history since last seen: The patient denies any pain, dizziness, chest discomfort, shortness of breath, nausea, vomiting. He is interested in simplifying his medications - he thinks he takes too many. Requests that he gets melatonin at night. Exam Narrative Exam Narrative: General: Obese male, sitting in bed, comfortable, very awake and interactive Neurological: A&Ox3, no focal deficits Psychiatric: irritable/confrontational, but rational/can be reoriented HEENT: EOMI, MMM, poor dentition Cardiovascular: RRR, no m/r/g Lungs: Diminished breath sounds B Gastrointestinal: Abdomen with a cholecystostomy drain as well as RLQ ileostomy - c/d/i; soft. + bowel sounds Extremities: chronic venous stasis dermatitis; no erythema. +1 edema in BLE's Objective Objective Clinical Data: Abnormal lab results 12/29/17 12/29/17 Range/Units 06:13 06:13 WBC 10.88 H (4.4-10.8) k/cumm RBC 4.03 L (4.50-6.00) m/cumm Hgb 8.5 L (13.5-17.5) g/dL Hct 29.4 L (40.0-50.0) % MCV 73.0 L (80-95) fL MCH 21.1 L (27.0-33.0) pg MCHC 28.9 L (32.0-36.0) g/dL RDW 18.7 H (11.8-14.1) % Plt Count 486 H (130-400) x1000/uL Absolute Neutrophils 8.31 H (1.2-6.7) k/cumm Chloride 109 H (98-107) mmol/L BUN 19 H (7-18) mg/dL Creatinine 1.87 H (0.70-1.30) mg/dL Glucose 166 H (70-100) mg/dL Calcium 8.4 L (8.5-10.1) mg/dL Vital Signs Temperature 36.6 C 12/29/17 12:22 Temperature Source Tympanic 12/29/17 12:22 Pulse 64 12/29/17 16:01 Pulse Rhythm Regular 12/29/17 15:45 Pulse 70 12/28/17 22:00 Respiratory Rate 20 12/29/17 12:22 Respiratory Effort 12/29/17 15:45 Respiratory Depth Normal 12/29/17 15:45 Respiratory Pattern Normal 12/29/17 15:45 Blood Pressure 176/79 H 12/29/17 16:01 Blood Pressure Mean 103 12/29/17 16:01 Blood Pressure Position Sitting 12/28/17 12:15 Pulse Oximetry 97 12/29/17 08:54 Oxygen Delivery Method Room Air 12/29/17 08:54 Oxygen Flow Rate 0 12/29/17 08:54 Pain Level 0 12/28/17 12:15 Comment 12/29/17 02:17 Intake & Output 12/28/17 12/29/17 12/29/17 23:59 11:59 23:59 Intake Total 2440 / 2440 1520 / 1520 520 / 520 Output Total 2455 / 2455 1750 / 1750 675 / 675 Balance -15 / -15 -230 / -230 -155 / -155 Weight 111.3 kg Intake: IV 160 / 160 360 / 360 Oral 2280 / 2280 960 / 960 520 / 520 Injectate 200 / 200 Right Lower Abdomen 200 / 200 Output: Drainage 120 / 120 225 / 225 Right Lower Abdomen 120 / 120 225 / 225 Urine 1375 / 1375 900 / 900 475 / 475 Stool 960 / 960 625 / 625 200 / 200 Other: Urine Color Yellow Pale Yellow Yellow Urine Appearance Cloudy Cloudy Clear Sediment Comment Magalie care and cath care done this a.m. at 1130 Stool Occult Blood Negative Laboratory Results WBC 10.88 k/cumm (4.4-10.8) H 12/29/17 06:13 RBC 4.03 m/cumm (4.50-6.00) L 12/29/17 06:13 Hgb 8.5 g/dL (13.5-17.5) L 12/29/17 06:13 Hct 29.4 % (40.0-50.0) L 12/29/17 06:13 MCV 73.0 fL (80-95) L 12/29/17 06:13 MCH 21.1 pg (27.0-33.0) L 12/29/17 06:13 MCHC 28.9 g/dL (32.0-36.0) L 12/29/17 06:13 RDW 18.7 % (11.8-14.1) H 12/29/17 06:13 Plt Count 486 x1000/uL (130-400) H 12/29/17 06:13 MPV 9.7 fL (8.0-11.0) 12/29/17 06:13 Immature Gran % 0.8 12/29/17 06:13 Neutrophils % 76.4 12/29/17 06:13 Lymphocytes % 13.8 12/29/17 06:13 Monocytes % 4.2 12/29/17 06:13 Eosinophils % 4.3 12/29/17 06:13 Basophils % 0.5 12/29/17 06:13 Absolute Neutrophils 8.31 k/cumm (1.2-6.7) H 12/29/17 06:13 Absolute Lymphocytes 1.50 k/cumm (1.2-3.4) 12/29/17 06:13 Absolute Monocytes 0.46 k/cumm (0.11-0.7) 12/29/17 06:13 Absolute Eosinophils 0.47 k/cumm (0.0-0.7) 12/29/17 06:13 Absolute Basophils 0.05 k/cumm (0.0-0.2) 12/29/17 06:13 Differential Comment Agrees w/ instrument 12/27/17 07:30 Atypical Lymphocytes 1 12/24/17 07:05 RBC Morphology See below 12/27/17 07:30 Polychromasia Present 12/26/17 05:12 Hypochromasia 2+ 12/27/17 07:30 Anisocytosis 2+ 12/26/17 05:12 Microcytosis 2+ 12/27/17 07:30 Ovalocytes 2+ 12/27/17 07:30 Sample Site Left radial 12/27/17 13:20 pCO2 39 mmHg (34-47) 12/27/17 13:20 pO2 68 mmHg (83-108) L 12/27/17 13:20 O2 Saturation 93 % (94-98) L 12/27/17 13:20 ABG pH 7.35 (7.35-7.45) 12/27/17 13:20 ABG HCO3 22 mmol/L (22-28) 12/27/17 13:20 ABG Total CO2 23 mmol/L (22-29) 12/27/17 13:20 ABG Base Excess -4.0 mmol/L (-3-3) L 12/27/17 13:20 Sodium 143 mmol/L (136-145) 12/29/17 06:13 Potassium 4.2 mmol/L (3.5-5.1) 12/29/17 06:13 Chloride 109 mmol/L (98-107) H 12/29/17 06:13 Carbon Dioxide 24.4 mmol/L (21.0-32.0) 12/29/17 06:13 Anion Gap 9.6 mmol/L (3-11) 12/29/17 06:13 BUN 19 mg/dL (7-18) H 12/29/17 06:13 Creatinine 1.87 mg/dL (0.70-1.30) H 12/29/17 06:13 Estimated GFR/1.73 m2 37.27 (mL/min/1.73m2) 12/29/17 06:13 Glucose 166 mg/dL (70-100) H 12/29/17 06:13 Lactate 1.2 mmol/L (0.6-1.4) 12/23/17 21:28 Calcium 8.4 mg/dL (8.5-10.1) L 12/29/17 06:13 Magnesium 1.9 mg/dL (1.8-2.4) 12/29/17 06:13 Total Bilirubin 0.3 mg/dL (0.2-1.0) 12/23/17 21:28 AST 11 U/L (15-37) L 12/23/17 21:28 ALT 12 U/L (12-78) 12/23/17 21:28 Alkaline Phosphatase 316 U/L (46-116) H 12/23/17 21:28 Total Protein 7.6 g/dL (6.4-8.2) 12/23/17 21:28 Albumin 2.1 g/dL (3.4-5.0) L 12/23/17 21:28 Urine Color Yellow (Yellow) 12/25/17 18:55 Urine Clarity Cloudy 12/25/17 18:55 Urine pH 6.0 (5-8) 12/25/17 18:55 Ur Specific Garrison 1.020 (1.005-1.025) 12/25/17 18:55 Urine Protein 100 mg/dL (Negative) H 12/25/17 18:55 Urine Ketones Negative mg/dL (Negative) 12/25/17 18:55 Urine Blood Moderate (Negative) H 12/25/17 18:55 Urine Nitrite Negative (Negative) 12/25/17 18:55 Urine Bilirubin Negative (Negative) 12/25/17 18:55 Urine Urobilinogen 0.2 EU/dL (Up TO 0.2) 12/25/17 18:55 Ur Leukocyte Esterase Moderate (Negative) H 12/25/17 18:55 Urine RBC >50 (0-2) H 12/25/17 18:55 Urine WBC >50 HPF (0-5) 12/25/17 18:55 Ur Epithelial Cells Few HPF (Negative) 12/25/17 18:55 Urine Crystals Negative HPF (Negative) 12/25/17 18:55 Urine Bacteria Many HPF (Negative) 12/25/17 18:55 Urine Casts 0-2 coarse granular LPF (Negative) 12/25/17 18:55 Urine Mucus Negative (Negative) 12/25/17 18:55 Urine Other Negative (Negative) 12/25/17 18:55 Ur Culture Indicated? Yes 12/25/17 18:55 Urine Glucose Negative mg/dL (Negative) 12/25/17 18:55 Vancomycin Trough 30.7 ug/mL (10.0-20.0) H* 12/26/17 05:12
--- NOTE | 2017-12-29 18:34 | POCOE_ITS ---
Date of service: 12/29/17 Time of Service: 18:33 History of Present Illness Chief Complaint: Ulceration affecting the right great toe Narrative: Brendan is seen for evaluation management of a diabetic ulceration affecting the right great toe. It is unclear how long the wound has been present and no previous treatments been rendered for this. He was admitted from the [facility] on December 24, 2017 for fever. He has multiple comorbidities which is stated below: (1) Fever: Current visit: Yes Status: Acute Likely due to cellulitis LE's present on admission. Urine C&S collected after ruiz catheter change w/ edda albicans (10-50,000 CFU) - less likely the real etiology of fever. Blood cx x 04/05/29: NGTD. Improving on vancomycin /zosyn. Other sources: ?R toe infection - podiatry consulted. ?adrenal insufficiency also contributing to fever. Independent of etiology, he has improved with broad spectrum abx and stress dose steroids. He should complete 1 week of empiric antibiotics. (H/o recent enterococcus faecalis UTI, group C strep bacteremia, recent cholecystostomy for acute cholecystitis) (2) Toxic metabolic encephalopathy: Current visit: Yes Status: Resolved Resolved, mental status at baseline. Etiology - differential diagnosis includes polypharmacy with fentanyl patch, high dose gabapentin, nortriptyline, risperidone. ? sepsis. ?adrenal insufficiency. The patient has not demonstrated any need for narcotic medications at all on this admission - so they should not be resumed on discharge. (3) Adrenal insufficiency: Current visit: Yes Status: Acute Stress dose steroids are being tapered. Prednisone at home dose to start tomorrow. (4) Diabetes mellitus type 2, controlled: Current visit: Yes Status: Chronic No hypoglycemia. Continue current doses of basal bolus insulin. Diet to be changed to accomodate his coloric needs. (5) Hypertension: Current visit: Yes Status: Chronic Clonidine and norvasc increased. Add beta blockers. (6) Chronic pain: Current visit: Yes Status: Chronic Not requiring narcotics. D/c'ed. (7) CAD (coronary artery disease): Current visit: Yes Status: Chronic Add beta blockers. (8) Rheumatoid arthritis: Current visit: No Status: Chronic Tapering stress dose steroids (9) Crohns disease: Current visit: Yes Status: Chronic Ostomy without issues. Humira on hold (10) CKD (chronic kidney disease): Current visit: Yes Status: Chronic Improved from baseline -continue to monitor (11) DVT prophylaxis: Current visit: No Status: Acute Continue Heparin SC (hem+ stools expected with Crohn's disease. H/H remains stable. Benefits of DVT ppx outweight the risks). Also on PPI for GI prophylaxis. Podiatric exam: Brendan is awake and alert responsive and reasonable laying in his bed comfortably. Vascular exam: DP and PT pulses are manually palpable at the ankles, the feet are warm to the touch, trace peripheral edema is noted bilaterally but his calves are soft to palpation. Markings of cellulitis are appreciated from his calf to the thigh which appears to be markedly absent of cellulitis at the moment Dermatologic exam: Nails are chronically fungal, hypertrophic and in need of debriding. Ulceration is noted affecting the plantar and medial aspect of the IPJ of the right great toe skin is peeling around this area indicative of previous inflammation, no active signs of cellulitis noted at this time Muscle groups of 5 out of 5 bilaterally although deconditioned Skeletal exam is remarkable for contractures of all toes bilaterally with the right great toe being transversely sagittally deformed through the IPJ and MPJ. Neurologically he does display peripheral neuropathy most notably at the level of the metatarsal heads and distal to the toes. His vitals BP is 176/79 pulse 64 temp 36.6. 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 The ulcer measured 1.2 cm circular and probed to bone. Wound care will be instituted consisting of a wet-to-dry dressing every 12 hours. X-rays will be ordered and a CRP. [facility] Medical History Heme positive stool (Chronic) JESUS (acute kidney injury) (Acute) Sepsis (Acute) Pedal edema (Chronic) Chronic insomnia (Chronic) Anxiety (Chronic) Diabetes mellitus type 2, controlled (Chronic) Hypertension (Chronic) Chronic pain (Chronic) Hypothyroidism (Chronic) Obesity (Chronic) Back pain (Chronic 06/21/13) Inability to get out of bed (Chronic 06/21/13) Poor self care (Chronic 06/21/13) Chronic bipolar disorder (Chronic) CAD (coronary artery disease) (Chronic) Dyslipidemia (Chronic) Hypoandrogenism (Chronic) Rheumatoid arthritis (Chronic) Crohns disease (Chronic) Osteoarthritis of both knees (Chronic) Cholelithiasis (Chronic) Impaired mobility and ADLs (Chronic) Acute congestive heart failure (Chronic) Hemorrhagic cystitis (Chronic) Anemia (Chronic) Bipolar 1 disorder (Chronic) CAD (coronary artery disease) (Chronic) Chronic anxiety (Chronic) Chronic pain (Chronic) 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) Dyslipidemia (Chronic) Hypertension (Chronic) Social History housing: fpc Smoking/Tobacco Use Status: Never Surgical History Arthroplasty of knee (Resolved 03/18/12) Fracture, Open Treatment (Resolved) Results Last Vital Signs Temp 36.6 C 12/29/17 12:22 Pulse 64 12/29/17 16:01 Resp 20 12/29/17 12:22 BP 176/79 H 12/29/17 16:01 Pulse Ox 97 12/29/17 08:54 Labs : 12/29/17 06:13 12/29/17 06:13 Laboratory Results - last 24 hr 12/29/17 12/29/17 06:13 06:13 WBC 10.88 H RBC 4.03 L Hgb 8.5 L Hct 29.4 L MCV 73.0 L MCH 21.1 L MCHC 28.9 L RDW 18.7 H Plt Count 486 H MPV 9.7 Immature Gran % 0.8 Neutrophils % 76.4 Lymphocytes % 13.8 Monocytes % 4.2 Eosinophils % 4.3 Basophils % 0.5 Absolute Neutrophils 8.31 H Absolute Lymphocytes 1.50 Absolute Monocytes 0.46 Absolute Eosinophils 0.47 Absolute Basophils 0.05 Sodium 143 Potassium 4.2 Chloride 109 H Carbon Dioxide 24.4 Anion Gap 9.6 BUN 19 H Creatinine 1.87 H Estimated GFR/1.73 m2 37.27 Glucose 166 H Calcium 8.4 L Magnesium 1.9
[2017-12-29] MEDS: Carvedilol 3.125 MG TAB PO (20:24)
[2017-12-29] MEDS: Gabapentin 800 MG TAB PO (20:24)
[2017-12-29] MEDS: Hydrocortisone SOD SUC. 100 MG VIAL 25 MG IVP (20:25)
[2017-12-29] MEDS: Melatonin 3 MG TAB PO (23:15)
[2017-12-29] MEDS: traZODone 50 MG TAB PO (23:15)
[2017-12-29] MEDS: risperiDONE 1 MG TAB 3 MG PO (23:16)
[2017-12-30] VITALS (8 sets, daily range): BP systolic 138–192; BP diastolic 67–87; PULSE 63–68; RESP 18; TEMP 35.8–37.1; O2SAT 96
[2017-12-30] MEDS: PIPERACILLIN/TAZO 3.375 GM in Normal Saline 50 ML IVPB ×4 (03:25→23:48)
[2017-12-30 06:59] LABS: Abs Immature Grans 0.13 k/cumm (0.0-0.09); Absolute Basophil Count 0.05 k/cumm (0.0-0.2); Absolute Lymphocyte Count 1.58 k/cumm (1.2-3.4); Absolute Monocyte Count 0.57 k/cumm (0.11-0.7); Absolute Neutrophil Count 8.44 k/cumm (1.2-6.7); Basophils % 0.4; Eosinophils % 10.8; HCT 28.9 % (40.0-50.0); HGB 8.4 g/dL (13.5-17.5); Immature Grans % 1.1; Lymphocytes % 13.1; Mean Corp. HGB Concentration 29.1 g/dL (32.0-36.0); Mean Corpuscular Hemoglobin 21.3 pg (27.0-33.0); Mean Corpuscular Volume 73.4 fL (80-95); Mean Platelet Volume 9.6 fL (8.0-11.0); Monocytes % 4.7; Neutrophils % 69.9; Platelet Count 483 x1000/uL (130-400); RBC 3.94 m/cumm (4.50-6.00); RBC Distribution Width 18.9 % (11.8-14.1); White Blood Cell Count 12.07 k/cumm (4.4-10.8)
[2017-12-30 07:10] LABS: Anion Gap 9.1 mmol/L (3-11); BUN 27 mg/dL (7-18); C-Reactive Protein 0.76 mg/dL (0.0-0.3); CO2 23.9 mmol/L (21.0-32.0); CREATININE 1.88 mg/dL (0.70-1.30); Calcium 8.4 mg/dL (8.5-10.1); Chloride 108 mmol/L (98-107); Estimated GFR 37.04 (mL/min/1.73m2); Glucose 166 mg/dL (70-100); Magnesium 1.7 mg/dL (1.8-2.4); Sodium 141 mmol/L (136-145)
[2017-12-30] MEDS: Levothyroxine 50 MCG TAB PO (07:12)
[2017-12-30] MEDS: Pantoprazole 40 MG TABCR PO (07:12)
[2017-12-30 07:36] LABS: Anisocytosis 2+; Diff Comment Diff Reviewed; Hypochromasia 2+; Microcytosis 3+; Polychromasia Present
[2017-12-30 07:37] LABS: Poikilocytes 2+
[2017-12-30] MEDS: Omega-3 Fatty Acids 1000 MG CAP 2000 MG PO (08:14)
[2017-12-30] MEDS: Heparin 5,000 UNITS/ML VIAL 5000 UNITS SC ×3 (08:14→23:18)
[2017-12-30] MEDS: Multivitamin w/Minerals TAB 1 TAB PO (08:15)
[2017-12-30] MEDS: Furosemide 40 MG TAB PO (08:15)
[2017-12-30] MEDS: amLODIPine 5 MG TAB 10 MG PO (08:15)
[2017-12-30] MEDS: Folic Acid 1 MG TAB PO (08:15)
[2017-12-30] MEDS: Venlafaxine 75 MG TAB PO ×3 (08:15→21:43)
[2017-12-30] MEDS: Cyanocobalamin 500 MCG TAB 1000 MCG PO (08:15)
[2017-12-30] MEDS: Gabapentin 800 MG TAB PO ×3 (08:15→21:45)
[2017-12-30] MEDS: Aspirin E.C. 81 MG TABEC PO ×2 (08:15→21:45)
[2017-12-30] MEDS: cloNIDine 0.1 MG TAB 0.3 MG PO ×3 (08:16→21:44)
[2017-12-30] MEDS: Ferrous Sulfate 325 MG TAB PO ×2 (08:16→21:45)
[2017-12-30] MEDS: Ascorbic Acid 500 MG TAB PO ×2 (08:16→21:45)
[2017-12-30] MEDS: predniSONE 10 MG TAB PO (08:16)
[2017-12-30] MEDS: Loperamide 2 MG CAP PO (08:16)
[2017-12-30] MEDS: carBAMazepine 100 MG CHEW PO ×3 (08:16→21:45)
[2017-12-30] MEDS: Carvedilol 3.125 MG TAB PO (08:16)
[2017-12-30] MEDS: Acetaminophen 500 MG TAB PO ×2 (08:17→21:46)
[2017-12-30] MEDS: Insulin Aspart 300 UNITS/3 ML PEN SC ×3 (08:17→16:52)
[2017-12-30] MEDS: Lachydrin 12% LOTION 225 GM BTL TP ×2 (08:18→21:46)
[2017-12-30] MEDS: Nystatin POWDER 15 GM JAR TP ×3 (08:18→21:47)
[2017-12-30] MEDS: Insulin Glargine 300 UNITS/3 ML PEN 30 UNITS SC (08:19)
[2017-12-30] MEDS: Sertraline 25 MG TAB PO (08:21)
--- NOTE | 2017-12-30 09:46 | DI.RAD_ITS ---
SYMPTOM/DIAGNOSIS: ULCER AT IPJ LEVEL RIGHT GREAT TOE: Three views. Note is made of hammertoe deformities of the 2nd through 5th toes There also appears to be a subluxation of the interphalangeal joint of the great toe. No destructive or erosive changes are seen in the bones to suggest acute osteomyelitis. There does appear to be a skin defect at the plantar surface of the great toe suggesting an ulcer. No radiopaque foreign bodies are seen in the soft tissues. There is a deformity seen of the neck of the proximal phalanx of the right 3rd toe suspicious for a nondisplaced subacute fracture. The bones in general appear osteopenic. IMPRESSION: 1. No definite evidence to suggest osteomyelitis 2. Soft tissue ulceration involving the great toe 3. Deformity involving the distal aspect of the proximal phalanx of the right 3rd toe suspicious for a subacute fracture. Follow up as clinically appropriate.
[2017-12-30 10:13] LABS: Vancomycin, Trough 26.7 ug/mL (10.0-20.0)
[2017-12-30] MEDS: Lisinopril 10 MG TAB PO (11:35)
[2017-12-30] MEDS: MAGNESIUM SULFATE 2 GM/50 ML BAG IVPB (11:35)
--- NOTE | 2017-12-30 12:01 | DM INPTCON_ITS ---
DESCRIPTION/ASSESSMENT: Brendan Corley is hospitalized now getting less than half his usual both basal and bolus insulin dose. Blood sugars appear to recover overnight from 144 fasting from 245 the previous night, however blood sugars increase as the day progresses with insulin correction of 2-6 units only with meals. INTERVENTION: Suggest insulin for carbohydrate at 1 unit covers 10 grams, or about 4 units at each meal in addition to the moderate insulin correction. PLAN: Will follow blood sugars.
--- NOTE | 2017-12-30 13:33 | NUTRITION ---
Mr. Corley stated that he likes the Enrique very much. He states he was looking forward to trying the Glucerna. I encouraged him to focus on the nutrient dense liquids on his trays first. He reports that he felt overwhelmed by the double portion of fish on his tray. I reassured him that we will find less daunting ways to increase the calories at his meals. Will continue to monitor and evaluate.
--- NOTE | 2017-12-30 13:59 | PT.INTREAT ---
Date of service: 12/30/17 Time of Service: 13:00 PT Notes Inpatient Physical Therapy Treatment Note Date: 12/30/17 SUBJECTIVE: Brendan states that this is my time and I am pretty selfish about my time. I'll work with you, but not for long. OBJECTIVE: [] BED MOBILITY/TRANSFERS Supine-sit: I Sit-supine: S Sit-stand: S Stand-sit: S GAIT Assistive Device: FWW Weight bearing: AT Assist: SBA Distance: 10'x2 THEREX: for global LE strengthening while seated at EOB. See flowsheet for details. ASSESSMENT: tolerated session well. He puts minimal effort in PT. I feel he could do more, but chooses not to. PLAN: will continue progressing his strength and endurance, following PT POC. TREATMENT CODE/TIME: 23 min. TPx1/ TAx1.
--- NOTE | 2017-12-30 15:01 | PDOC.CMPRO ---
- If Service Date Differs Date of service: 12/30/17 Time of Service: 15:01 Care Management Progress Note S/O: Brendan continues to be in the ICU as a Med/Surg overflow at this time. Per morning report, sara will be DC'd today and Brendan is scheduled to have a foot xray today. Per MD Brendan will most likely be ready for DC tomorrow 12/31/17 to return to [facility]. A: 57 year old male admitted to [facility] 12/24/17 for Fever P: [facility] ready per MD-likely via W/C van. CM will continue to follow-monitor Brendan's clinical status and will offer support to patient, family, and care team regarding discharge planning and disposition.
--- NOTE | 2017-12-30 15:04 | CMPROGNOTE_ITS ---
- If Service Date Differs Date of service: 12/30/17 Time of Service: 15:01 Care Management Progress Note S/O: Brendan continues to be in the ICU as a Med/Surg overflow at this time. Per morning report, sara will be DC'd today and Brendan is scheduled to have a foot xray today. Per MD Brendan will most likely be ready for DC tomorrow 12/31/[address] [facility]. A: 57 year old male admitted to [facility] 12/24/17 for Fever P: Brendan will return to the [facility] when ready per MD-likely via W/C van. CM will continue to follow-monitor Brendan's clinical status and will offer support to patient, family, and care team regarding discharge planning and disposition.
--- NOTE | 2017-12-30 16:03 | W.PM.PROGNOT ---
Date of Service Date of service: 12/30/17 Time of Service: 12:10 Assessment and Plan (1) Fever: Current visit: Yes Status: Acute Likely due to cellulitis LE's, but R great toe infected ulcer is also a possibility (both present on admission). Urine C&S collected after ruiz catheter change w/ edda albicans (10-50,000 CFU) - less likely the real etiology of fever. Blood cx x 04/05/29: NGTD. Improving on vancomycin/zosyn (Day 08/30). Await podiatry plans after review of X-rays. ?adrenal insufficiency also contributing to fever. Continue vancomycin/zosyn until podiatry recommendations are known. (H/o recent enterococcus faecalis UTI, group C strep bacteremia, recent cholecystostomy for acute cholecystitis) (2) Toxic metabolic encephalopathy: Current visit: Yes Status: Resolved Resolved, mental status at baseline. Differential diagnosis includes polypharmacy with fentanyl patch, high dose gabapentin, nortriptyline, risperidone. ? sepsis. ?adrenal insufficiency. No narcotics on discharge. (3) Adrenal insufficiency: Current visit: Yes Status: Acute At home dose of prednisone as of today. (4) Diabetes mellitus type 2, controlled: Current visit: Yes Status: Chronic BG's reasonable on current doses of insulin - continue basal bolus insulin. (5) Hypertension: Current visit: Yes Status: Chronic increased coreg, lisinopril added. (6) Chronic pain: Current visit: Yes Status: Chronic Not requiring narcotics. D/c'ed. Continue gabapentin (7) CAD (coronary artery disease): Current visit: Yes Status: Chronic Continue beta blockers. (8) Rheumatoid arthritis: Current visit: No Status: Chronic At baseline dose of steroids. (9) Crohns disease: Current visit: Yes Status: Chronic Ostomy without issues. Humira on hold (10) CKD (chronic kidney disease): Current visit: Yes Status: Chronic Improved from baseline - continue to monitor (11) DVT prophylaxis: Current visit: No Status: Acute Continue Heparin SC (hem+ stools expected with Crohn's disease. H/H stable. Benefits of DVT ppx outweigh the risks). Also on PPI for GI prophylaxis. Subjective Interval history since last seen: Denies any pain, dizziness, chest pain, shortness of breath, nausea, vomiting. Asking me to increase melatonin to 10 mg, which he used to take at home. Exam Narrative Exam Narrative: General: Obese male, sitting in bed, comfortable, very awake and interactive Neurological: A&Ox3, no focal deficits Psychiatric: irritable/confrontational, but rational/can be reoriented HEENT: EOMI, MMM, poor dentition Cardiovascular: RRR, no m/r/g Lungs: Diminished breath sounds B Gastrointestinal: Abdomen with a cholecystostomy drain as well as RLQ ileostomy - c/d/i; soft. + bowel sounds Extremities: chronic venous stasis dermatitis; no erythema. +1 edema in BLE's Objective Objective Clinical Data: Abnormal lab results 12/30/17 12/30/17 12/30/17 Range/Units 06:22 06:22 09:11 WBC 12.07 H (4.4-10.8) k/cumm RBC 3.94 L (4.50-6.00) m/cumm Hgb 8.4 L (13.5-17.5) g/dL Hct 28.9 L (40.0-50.0) % MCV 73.4 L (80-95) fL MCH 21.3 L (27.0-33.0) pg MCHC 29.1 L (32.0-36.0) g/dL RDW 18.9 H (11.8-14.1) % Plt Count 483 H (130-400) x1000/uL Absolute Neutrophils 8.44 H (1.2-6.7) k/cumm Absolute Eosinophils 1.30 H (0.0-0.7) k/cumm Chloride 108 H (98-107) mmol/L BUN 27 H (7-18) mg/dL Creatinine 1.88 H (0.70-1.30) mg/dL Glucose 166 H (70-100) mg/dL Calcium 8.4 L (8.5-10.1) mg/dL Magnesium 1.7 L (1.8-2.4) mg/dL C-Reactive Protein 0.76 H (0.0-0.3) mg/dL Vancomycin Trough 26.7 H* (10.0-20.0) ug/mL Vital Signs Temperature 37.1 C 12/30/17 15:15 Temperature Source Temporal Artery Scan 12/30/17 15:15 Pulse 67 12/30/17 14:19 Pulse Rhythm Regular 12/30/17 15:34 Pulse 70 12/28/17 22:00 Respiratory Rate 18 12/30/17 15:15 Respiratory Effort Non-Labored 12/30/17 15:34 Respiratory Depth Normal 12/30/17 15:34 Respiratory Pattern Normal 12/30/17 15:34 Blood Pressure 153/80 H 12/30/17 14:19 Blood Pressure Mean 99 12/30/17 14:19 Blood Pressure Position Sitting 12/28/17 12:15 Pulse Oximetry 96 12/30/17 15:15 Oxygen Delivery Method Room Air 12/30/17 15:15 Oxygen Flow Rate 0 12/30/17 15:15 Pain Level 0 12/29/17 20:30 Comment 12/29/17 02:17 Intake & Output 12/29/17 12/30/17 12/30/17 23:59 11:59 23:59 Intake Total 1895 / 1895 1290 / 1290 Output Total 2275 / 2275 1240 / 1240 1560 / 1560 Balance -380 / -380 50 / 50 -1560 / -1560 Weight 111.3 kg Intake: IV 100 / 100 50 / 50 Oral 1720 / 1720 1240 / 1240 Injectate 75 / 75 Right Lower Abdomen 75 / 75 Output: Drainage 80 / 80 40 / 40 Right Lower Abdomen 80 / 80 40 / 40 Urine 1175 / 1175 835 / 835 1200 / 1200 Stool 1100 / 1100 325 / 325 320 / 320 Other: Urine Color Yellow Yellow Yellow Urine Appearance Clear Cloudy Clear Urine Odor Normal Stool Size Copious Stool Characteristics Liquid Brown Voiding Methods Urinal Laboratory Results WBC 12.07 k/cumm (4.4-10.8) H 12/30/17 06:22 RBC 3.94 m/cumm (4.50-6.00) L 12/30/17 06:22 Hgb 8.4 g/dL (13.5-17.5) L 12/30/17 06:22 Hct 28.9 % (40.0-50.0) L 12/30/17 06:22 MCV 73.4 fL (80-95) L 12/30/17 06:22 MCH 21.3 pg (27.0-33.0) L 12/30/17 06:22 MCHC 29.1 g/dL (32.0-36.0) L 12/30/17 06:22 RDW 18.9 % (11.8-14.1) H 12/30/17 06:22 Plt Count 483 x1000/uL (130-400) H 12/30/17 06:22 MPV 9.6 fL (8.0-11.0) 12/30/17 06:22 Immature Gran % 1.1 12/30/17 06:22 Neutrophils % 69.9 12/30/17 06:22 Lymphocytes % 13.1 12/30/17 06:22 Monocytes % 4.7 12/30/17 06:22 Eosinophils % 10.8 12/30/17 06:22 Basophils % 0.4 12/30/17 06:22 Absolute Neutrophils 8.44 k/cumm (1.2-6.7) H 12/30/17 06:22 Absolute Lymphocytes 1.58 k/cumm (1.2-3.4) 12/30/17 06:22 Absolute Monocytes 0.57 k/cumm (0.11-0.7) 12/30/17 06:22 Absolute Eosinophils 1.30 k/cumm (0.0-0.7) H 12/30/17 06:22 Absolute Basophils 0.05 k/cumm (0.0-0.2) 12/30/17 06:22 Differential Comment Diff reviewed 12/30/17 06:22 Atypical Lymphocytes 1 12/24/17 07:05 RBC Morphology See below 12/30/17 06:22 Polychromasia Present 12/30/17 06:22 Hypochromasia 2+ 12/30/17 06:22 Poikilocytosis 2+ 12/30/17 06:22 Anisocytosis 2+ 12/30/17 06:22 Microcytosis 3+ 12/30/17 06:22 Ovalocytes 2+ 12/27/17 07:30 Sample Site Left radial 12/27/17 13:20 pCO2 39 mmHg (34-47) 12/27/17 13:20 pO2 68 mmHg (83-108) L 12/27/17 13:20 O2 Saturation 93 % (94-98) L 12/27/17 13:20 ABG pH 7.35 (7.35-7.45) 12/27/17 13:20 ABG HCO3 22 mmol/L (22-28) 12/27/17 13:20 ABG Total CO2 23 mmol/L (22-29) 12/27/17 13:20 ABG Base Excess -4.0 mmol/L (-3-3) L 12/27/17 13:20 Sodium 141 mmol/L (136-145) 12/30/17 06:22 Potassium 4.0 mmol/L (3.5-5.1) 12/30/17 06:22 Chloride 108 mmol/L (98-107) H 12/30/17 06:22 Carbon Dioxide 23.9 mmol/L (21.0-32.0) 12/30/17 06:22 Anion Gap 9.1 mmol/L (3-11) 12/30/17 06:22 BUN 27 mg/dL (7-18) H 12/30/17 06:22 Creatinine 1.88 mg/dL (0.70-1.30) H 12/30/17 06:22 Estimated GFR/1.73 m2 37.04 (mL/min/1.73m2) 12/30/17 06:22 Glucose 166 mg/dL (70-100) H 12/30/17 06:22 Lactate 1.2 mmol/L (0.6-1.4) 12/23/17 21:28 Calcium 8.4 mg/dL (8.5-10.1) L 12/30/17 06:22 Magnesium 1.7 mg/dL (1.8-2.4) L 12/30/17 06:22 Total Bilirubin 0.3 mg/dL (0.2-1.0) 12/23/17 21:28 AST 11 U/L (15-37) L 12/23/17 21:28 ALT 12 U/L (12-78) 12/23/17 21:28 Alkaline Phosphatase 316 U/L (46-116) H 12/23/17 21:28 C-Reactive Protein 0.76 mg/dL (0.0-0.3) H 12/30/17 06:22 Total Protein 7.6 g/dL (6.4-8.2) 12/23/17 21:28 Albumin 2.1 g/dL (3.4-5.0) L 12/23/17 21:28 Urine Color Yellow (Yellow) 12/25/17 18:55 Urine Clarity Cloudy 12/25/17 18:55 Urine pH 6.0 (5-8) 12/25/17 18:55 Ur Specific [place] 1.020 (1.005-1.025) 12/25/17 18:55 Urine Protein 100 mg/dL (Negative) H 12/25/17 18:55 Urine Ketones Negative mg/dL (Negative) 12/25/17 18:55 Urine Blood Moderate (Negative) H 12/25/17 18:55 Urine Nitrite Negative (Negative) 12/25/17 18:55 Urine Bilirubin Negative (Negative) 12/25/17 18:55 Urine Urobilinogen 0.2 EU/dL (Up TO 0.2) 12/25/17 18:55 Ur Leukocyte Esterase Moderate (Negative) H 12/25/17 18:55 Urine RBC >50 (0-2) H 12/25/17 18:55 Urine WBC >50 HPF (0-5) 12/25/17 18:55 Ur Epithelial Cells Few HPF (Negative) 12/25/17 18:55 Urine Crystals Negative HPF (Negative) 12/25/17 18:55 Urine Bacteria Many HPF (Negative) 12/25/17 18:55 Urine Casts 0-2 coarse granular LPF (Negative) 12/25/17 18:55 Urine Mucus Negative (Negative) 12/25/17 18:55 Urine Other Negative (Negative) 12/25/17 18:55 Ur Culture Indicated? Yes 12/25/17 18:55 Urine Glucose Negative mg/dL (Negative) 12/25/17 18:55 Vancomycin Trough 26.7 ug/mL (10.0-20.0) H* 12/30/17 09:11 XR R great toe: IMPRESSION: 1. No definite evidence to suggest osteomyelitis 2. Soft tissue ulceration involving the great toe 3. Deformity involving the distal aspect of the proximal phalanx of the right 3rd toe suspicious for a subacute fracture. Follow up as clinically appropriate
[2017-12-30] MEDS: Normal Saline Flush 10 ML SYR IVP ×2 (17:11→21:44)
--- NOTE | 2017-12-30 17:24 | W.PM.PROGNOT ---
Date of Service Date of service: 12/30/17 Time of Service: 17:24 Subjective Patient reports: no new complaints Interval history since last seen: Brendan is seen at bedside. He has no complaints of pain to his right great toe. He does indicate he would like to go back to the [facility] as soon as he can. He indicates that before this admission promise had been contact in regards to obtaining new extra-depth shoe gear. He does not know the status of that order. Exam Narrative Exam Narrative: Radiographs were obtained this morning of the right great toe as ordered. No obvious signs of osteomyelitis were detected at this time. His vitals BP is 153/80 pulse 67 temp 37.1 Morning labs show a upward bump in his WBCs now at 12.07 CRP 0.76 hemoglobin and hematocrit have remained steady Examination of his lower extremities right great toe no cellulitis is observed the wound is filled with a little fibrinous debris at the base and around the margin but there is no purulent matter identified the digit is warm and appears viable it is markedly contracted rotated medially with the medial side of the interphalangeal joint touching the ground on weightbearing which is the region of his wound. Has a superficial abrasion over the IPJ of the left great toe which I did not notice yesterday there was slight bloody drainage seen on his sock but it appears to be very shallow and not infected at this time Impression: Diabetic ulceration medial wall IPJ right great toe grade 3 as above Grade 2 abrasion left hallux Plan: We will continue with normal saline wet-to-dry dressings every 12 hours but will add Santyl to the base of the wound to help chemical wound debridement and encourage granulation. It is essential that he wear appropriate shoes to offload and protect the great toe once he begins weightbearing and returns to the [facility]. I am hopeful that the bulky dressing that he will be utilizing will help to offload the region when he is in his extra-depth diabetic shoes until new shoe gear becomes available. A dry Band-Aid was applied to the region over the left great toe recommend doing the same until it fully heals I have no objections to him returning to the [facility] when he is medically stable with his other comorbidities. I would like to see him back in the office within 2 weeks for ongoing care. Objective Objective Clinical Data: Abnormal lab results 12/30/17 12/30/17 12/30/17 Range/Units 06:22 06:22 09:11 WBC 12.07 H (4.4-10.8) k/cumm RBC 3.94 L (4.50-6.00) m/cumm Hgb 8.4 L (13.5-17.5) g/dL Hct 28.9 L (40.0-50.0) % MCV 73.4 L (80-95) fL MCH 21.3 L (27.0-33.0) pg MCHC 29.1 L (32.0-36.0) g/dL RDW 18.9 H (11.8-14.1) % Plt Count 483 H (130-400) x1000/uL Absolute Neutrophils 8.44 H (1.2-6.7) k/cumm Absolute Eosinophils 1.30 H (0.0-0.7) k/cumm Chloride 108 H (98-107) mmol/L BUN 27 H (7-18) mg/dL Creatinine 1.88 H (0.70-1.30) mg/dL Glucose 166 H (70-100) mg/dL Calcium 8.4 L (8.5-10.1) mg/dL Magnesium 1.7 L (1.8-2.4) mg/dL C-Reactive Protein 0.76 H (0.0-0.3) mg/dL Vancomycin Trough 26.7 H* (10.0-20.0) ug/mL Vital Signs Temperature 37.1 C 12/30/17 15:15 Temperature Source Temporal Artery Scan 12/30/17 15:15 Pulse 67 12/30/17 14:19 Pulse Rhythm Regular 12/30/17 15:34 Pulse 70 12/28/17 22:00 Respiratory Rate 18 12/30/17 15:15 Respiratory Effort Non-Labored 12/30/17 15:34 Respiratory Depth Normal 12/30/17 15:34 Respiratory Pattern Normal 12/30/17 15:34 Blood Pressure 153/80 H 12/30/17 14:19 Blood Pressure Mean 99 12/30/17 14:19 Blood Pressure Position Sitting 12/28/17 12:15 Pulse Oximetry 96 12/30/17 15:15 Oxygen Delivery Method Room Air 12/30/17 15:15 Oxygen Flow Rate 0 12/30/17 15:15 Pain Level 0 12/29/17 20:30 Comment 12/29/17 02:17 Intake & Output 12/29/17 12/30/17 12/30/17 18:59 06:59 18:59 Intake Total 2270 / 2270 1495 / 1495 450 / 450 Output Total 2175 / 2175 1550 / 1550 1950 / 1950 Balance 95 / 95 -55 / -55 -1500 / -1500 Weight 111.3 kg Intake: IV 110 / 110 100 / 100 50 / 50 Oral 1959 1320 / 1320 400 / 400 Injectate 200 / 200 75 / 75 Right Lower Abdomen 200 / 200 75 / 75 Output: Drainage 120 / 120 Right Lower Abdomen 120 / 120 Urine 625 / 625 1350 / 1350 1385 / 1385 Stool 1550 / 1550 200 / 200 445 / 445 Other: Urine Color Yellow Light Cat Yellow Urine Appearance Clear Sediment Clear Urine Odor Normal Stool Size Copious Stool Characteristics Liquid Brown Voiding Methods Urinal Laboratory Results WBC 12.07 k/cumm (4.4-10.8) H 12/30/17 06:22 RBC 3.94 m/cumm (4.50-6.00) L 12/30/17 06:22 Hgb 8.4 g/dL (13.5-17.5) L 12/30/17 06:22 Hct 28.9 % (40.0-50.0) L 12/30/17 06:22 MCV 73.4 fL (80-95) L 12/30/17 06:22 MCH 21.3 pg (27.0-33.0) L 12/30/17 06:22 MCHC 29.1 g/dL (32.0-36.0) L 12/30/17 06:22 RDW 18.9 % (11.8-14.1) H 12/30/17 06:22 Plt Count 483 x1000/uL (130-400) H 12/30/17 06:22 MPV 9.6 fL (8.0-11.0) 12/30/17 06:22 Immature Gran % 1.1 12/30/17 06:22 Neutrophils % 69.9 12/30/17 06:22 Lymphocytes % 13.1 12/30/17 06:22 Monocytes % 4.7 12/30/17 06:22 Eosinophils % 10.8 12/30/17 06:22 Basophils % 0.4 12/30/17 06:22 Absolute Neutrophils 8.44 k/cumm (1.2-6.7) H 12/30/17 06:22 Absolute Lymphocytes 1.58 k/cumm (1.2-3.4) 12/30/17 06:22 Absolute Monocytes 0.57 k/cumm (0.11-0.7) 12/30/17 06:22 Absolute Eosinophils 1.30 k/cumm (0.0-0.7) H 12/30/17 06:22 Absolute Basophils 0.05 k/cumm (0.0-0.2) 12/30/17 06:22 Differential Comment Diff reviewed 12/30/17 06:22 Atypical Lymphocytes 1 12/24/17 07:05 RBC Morphology See below 12/30/17 06:22 Polychromasia Present 12/30/17 06:22 Hypochromasia 2+ 12/30/17 06:22 Poikilocytosis 2+ 12/30/17 06:22 Anisocytosis 2+ 12/30/17 06:22 Microcytosis 3+ 12/30/17 06:22 Ovalocytes 2+ 12/27/17 07:30 Sample Site Left radial 12/27/17 13:20 pCO2 39 mmHg (34-47) 12/27/17 13:20 pO2 68 mmHg (83-108) L 12/27/17 13:20 O2 Saturation 93 % (94-98) L 12/27/17 13:20 ABG pH 7.35 (7.35-7.45) 12/27/17 13:20 ABG HCO3 22 mmol/L (22-28) 12/27/17 13:20 ABG Total CO2 23 mmol/L (22-29) 12/27/17 13:20 ABG Base Excess -4.0 mmol/L (-3-3) L 12/27/17 13:20 Sodium 141 mmol/L (136-145) 12/30/17 06:22 Potassium 4.0 mmol/L (3.5-5.1) 12/30/17 06:22 Chloride 108 mmol/L (98-107) H 12/30/17 06:22 Carbon Dioxide 23.9 mmol/L (21.0-32.0) 12/30/17 06:22 Anion Gap 9.1 mmol/L (3-11) 12/30/17 06:22 BUN 27 mg/dL (7-18) H 12/30/17 06:22 Creatinine 1.88 mg/dL (0.70-1.30) H 12/30/17 06:22 Estimated GFR/1.73 m2 37.04 (mL/min/1.73m2) 12/30/17 06:22 Glucose 166 mg/dL (70-100) H 12/30/17 06:22 Lactate 1.2 mmol/L (0.6-1.4) 12/23/17 21:28 Calcium 8.4 mg/dL (8.5-10.1) L 12/30/17 06:22 Magnesium 1.7 mg/dL (1.8-2.4) L 12/30/17 06:22 Total Bilirubin 0.3 mg/dL (0.2-1.0) 12/23/17 21:28 AST 11 U/L (15-37) L 12/23/17 21:28 ALT 12 U/L (12-78) 12/23/17 21:28 Alkaline Phosphatase 316 U/L (46-116) H 12/23/17 21:28 C-Reactive Protein 0.76 mg/dL (0.0-0.3) H 12/30/17 06:22 Total Protein 7.6 g/dL (6.4-8.2) 12/23/17 21:28 Albumin 2.1 g/dL (3.4-5.0) L 12/23/17 21:28 Urine Color Yellow (Yellow) 12/25/17 18:55 Urine Clarity Cloudy 12/25/17 18:55 Urine pH 6.0 (5-8) 12/25/17 18:55 Ur Specific [place] 1.020 (1.005-1.025) 12/25/17 18:55 Urine Protein 100 mg/dL (Negative) H 12/25/17 18:55 Urine Ketones Negative mg/dL (Negative) 12/25/17 18:55 Urine Blood Moderate (Negative) H 12/25/17 18:55 Urine Nitrite Negative (Negative) 12/25/17 18:55 Urine Bilirubin Negative (Negative) 12/25/17 18:55 Urine Urobilinogen 0.2 EU/dL (Up TO 0.2) 12/25/17 18:55 Ur Leukocyte Esterase Moderate (Negative) H 12/25/17 18:55 Urine RBC >50 (0-2) H 12/25/17 18:55 Urine WBC >50 HPF (0-5) 12/25/17 18:55 Ur Epithelial Cells Few HPF (Negative) 12/25/17 18:55 Urine Crystals Negative HPF (Negative) 12/25/17 18:55 Urine Bacteria Many HPF (Negative) 12/25/17 18:55 Urine Casts 0-2 coarse granular LPF (Negative) 12/25/17 18:55 Urine Mucus Negative (Negative) 12/25/17 18:55 Urine Other Negative (Negative) 12/25/17 18:55 Ur Culture Indicated? Yes 12/25/17 18:55 Urine Glucose Negative mg/dL (Negative) 12/25/17 18:55 Vancomycin Trough 26.7 ug/mL (10.0-20.0) H* 12/30/17 09:11
[2017-12-30] MEDS: Collagenase 30 GM TUBE TP (18:38)
[2017-12-30] MEDS: VANCOMYCIN 1,000 MG in Normal Saline 250 ML 166.667 MG IVPB (21:42)
[2017-12-30] MEDS: risperiDONE 1 MG TAB 3 MG PO (21:43)
[2017-12-30] MEDS: Carvedilol 3.125 MG TAB 6.25 MG PO (21:45)
[2017-12-30] MEDS: traZODone 50 MG TAB PO (21:45)
[2017-12-31 02:17] VITALS: BP 138/66; PULSE 61
[2017-12-31] MEDS: PIPERACILLIN/TAZO 3.375 GM in Normal Saline 50 ML IVPB ×2 (05:05→10:00)
[2017-12-31] MEDS: Levothyroxine 50 MCG TAB PO (05:06)
[2017-12-31] MEDS: Normal Saline Flush 10 ML SYR IVP (05:11)
[2017-12-31 07:13] LABS: Abs Immature Grans 0.07 k/cumm (0.0-0.09); Absolute Lymphocyte Count 1.21 k/cumm (1.2-3.4); Absolute Neutrophil Count 10.84 k/cumm (1.2-6.7); Basophils % 0.3; Eosinophils % 12.2; HCT 29.4 % (40.0-50.0); HGB 8.7 g/dL (13.5-17.5); Immature Grans % 0.5; Lymphocytes % 8.2; Mean Corp. HGB Concentration 29.6 g/dL (32.0-36.0); Mean Corpuscular Hemoglobin 21.6 pg (27.0-33.0); Mean Platelet Volume 9.9 fL (8.0-11.0); Monocytes % 5.4; Neutrophils % 73.4; Platelet Count 494 x1000/uL (130-400); RBC 4.03 m/cumm (4.50-6.00); RBC Distribution Width 19.3 % (11.8-14.1); White Blood Cell Count 14.77 k/cumm (4.4-10.8)
[2017-12-31 07:20] LABS: Anion Gap 9.3 mmol/L (3-11); BUN 32 mg/dL (7-18); CO2 23.7 mmol/L (21.0-32.0); CREATININE 1.83 mg/dL (0.70-1.30); Calcium 8.5 mg/dL (8.5-10.1); Chloride 106 mmol/L (98-107); Estimated GFR 38.21 (mL/min/1.73m2); Glucose 192 mg/dL (70-100); Potassium 3.8 mmol/L (3.5-5.1); Sodium 139 mmol/L (136-145)
[2017-12-31 07:21] LABS: Absolute Basophil Count 0.04 k/cumm (0.0-0.2)
[2017-12-31 07:45] VITALS: BP 141/69; PULSE 70
[2017-12-31 07:48] VITALS: BP 141/69; PULSE 72; RESP 18; TEMP 37.6; O2SAT 96
[2017-12-31] MEDS: Multivitamin w/Minerals TAB 1 TAB PO (08:33)
[2017-12-31] MEDS: predniSONE 10 MG TAB PO (08:35)
[2017-12-31] MEDS: cloNIDine 0.1 MG TAB 0.3 MG PO ×2 (08:35→13:45)
[2017-12-31] MEDS: Omega-3 Fatty Acids 1000 MG CAP 2000 MG PO (08:35)
[2017-12-31] MEDS: Ascorbic Acid 500 MG TAB PO (08:36)
[2017-12-31] MEDS: Carvedilol 3.125 MG TAB 6.25 MG PO (08:36)
[2017-12-31] MEDS: Pantoprazole 40 MG TABCR PO (08:37)
[2017-12-31] MEDS: Aspirin E.C. 81 MG TABEC PO (08:37)
[2017-12-31] MEDS: Lisinopril 10 MG TAB PO (08:37)
[2017-12-31] MEDS: Ferrous Sulfate 325 MG TAB PO (08:38)
[2017-12-31] MEDS: carBAMazepine 100 MG CHEW PO ×2 (08:38→13:46)
[2017-12-31] MEDS: Acetaminophen 500 MG TAB PO (08:38)
[2017-12-31] MEDS: Loperamide 2 MG CAP PO (08:38)
[2017-12-31] MEDS: Venlafaxine 75 MG TAB PO ×2 (08:39→13:45)
[2017-12-31] MEDS: Gabapentin 800 MG TAB PO ×2 (08:39→13:45)
[2017-12-31] MEDS: Sertraline 25 MG TAB PO (08:39)
[2017-12-31] MEDS: amLODIPine 5 MG TAB 10 MG PO (08:39)
[2017-12-31] MEDS: Cyanocobalamin 500 MCG TAB 1000 MCG PO (08:40)
[2017-12-31] MEDS: Heparin 5,000 UNITS/ML VIAL 5000 UNITS SC (08:40)
[2017-12-31] MEDS: Folic Acid 1 MG TAB PO (08:40)
[2017-12-31] MEDS: Insulin Aspart 300 UNITS/3 ML PEN SC ×2 (08:41→12:12)
[2017-12-31] MEDS: Furosemide 40 MG TAB PO (08:43)
[2017-12-31] MEDS: Insulin Glargine 300 UNITS/3 ML PEN 30 UNITS SC (08:54)
[2017-12-31] MEDS: Nystatin POWDER 15 GM JAR TP ×2 (11:11→14:01)
[2017-12-31] MEDS: Amoxicillin 875/Clav. 125 TAB PO (11:20)
--- NOTE | 2017-12-31 11:25 | PTTR_ITS ---
Date of service: 12/31/17 Time of Service: 11:23 PT Notes Inpatient Physical Therapy Treatment Note Date: 12/31/17 PRECAUTIONS: Fall, Skin SUBJECTIVE: Brendan is agreeable to PT this morning, he states that he is feeling good and hopeful that he will discharge back to [facility] today. OBJECTIVE: PAIN: No c/o pain BED MOBILITY/TRANSFERS Sit-stand: Min A Stand-sit: S GAIT Assistive Device: FWW Weight bearing: WBAT on R Assist: SBA Distance: 20' x2 THEREX: Patient completed a LE strengthening program, as per flow sheet. He tolerated a slight progression in his program today, modifications made to reps are noted on flow sheet. ASSESSMENT: Patient tolerated a slight progression in gait distance with FWW support as well as a slight progression in his ther ex program. Patient would benefit from continued gait and transfer training as well as strengthening for improved mobility. PLAN: Continue with PT's POC TREATMENT CODE/TIME: 30 minutes; TA/TP
[2017-12-31 12:39] VITALS: BP 149/77; PULSE 66
--- NOTE | 2017-12-31 12:40 | W.PM.DS.N ---
Date of service: 12/31/17 Time of Service: 12:42 DS: Diagnosis Discharge Diagnosis (1) Fever: Status: Acute (2) Toxic metabolic encephalopathy: Status: Resolved (3) Adrenal insufficiency: Status: Acute (4) Diabetes mellitus type 2, controlled: Status: Chronic (5) Hypertension: Status: Chronic (6) Chronic pain: Status: Chronic (7) CAD (coronary artery disease): Status: Chronic (8) Rheumatoid arthritis: Status: Chronic (9) Crohns disease: Status: Chronic (10) CKD (chronic kidney disease): Status: Chronic Discharge Plan Disposition Patient Disposition: SNF (LEVEL 1) [facility] Condition: Fair Discharge Details Reason For Visit: FEVER Admit Date/Time: 12/24/17 00:16 Admit Provider: Chance Fragoso Attending Provider: Chance Fragoso Primary Care Provider: Anne Horowitz Hospital Course Hospital Course: Mr Corley is a 57 year old male with PMHx of IDDM2, RA, Crohn's disease, on chronic steroid and Humira therapy, as well as recent bacteremia and UTI, who was admitted to [facility] on 12/23/17 for sepsis due to cellulitis of BLE's as well as infected diabetic ulcer of R great toe. He was treated with empiric vancomycin/zosyn, having completed 1 week of antibiotics with excellent clinical response to therapy. He required stress dose steroids to help him through this acute phase of his illness. We had to adjust his insulins down as part of his hospital course of hypoglycemia, likely due to his acute on chronic adrenal insufficiency in light of sepsis. The patient was evaluated by podiatry (Dr Ashford), who based on a low CRP and XR of the R great toe felt the patient likely had cellulitis/infected R great toe ulcer, but no osteomyelitis. His recommendations are for the patient to complete a 10 day course of augmentin at the nursing facility with a 2 week follow up with him. He needs to have his diabetic shoes done (previously ordered through [employer]). R great toe is to have normal saline wet-to-dry dressings every 12 hours with Santyl applied to the base of the wound. He is non-weightbearing to right foot at this time. He may weight bear once he returns to the [facility] as long as he has bulky dressing to the R great toe and is wearing his extra depth diabetic shoes (until he gets his new ones). Though UTI and pneumonia were suspected at the time of presentation, Urine ended up growing Sandra albicans - not in sufficient amounts to qualify for a UTI on culture done after ruiz catheter change. Based on the absence of respiratory symptoms, it is unlikely that the patient had a pneumonia on this admission. His blood cultures were negative. He did have a mild component of encephalopathy during the first 48 hours of his hospital stay, thought to be due to combination of polypharmacy and sepsis. His fentanyl was completely discontinued as his pain was not at all an issue on this admission, and the patient tolerated this without problems. He should not be restarted on narcotic medications on return to SNF. At this time, he is ambulating with a walker, is at his baseline and is medically stable for discharge. Home Meds and New Rx's Prescriptions: New clonidine HCl [Catapres] 0.1 mg Tablet 0.3 mg PO TID Qty: 0 RF: 0 ammonium lactate 12 % Lotion See Label Instructions .ROUTE .COMPLEX Qty: 0 RF: 0 amlodipine 5 mg Tablet 10 mg PO DAILY Qty: 0 RF: 0 insulin glargine [Lantus Solostar U-100 Insulin] 100 unit/mL (3 mL) Insulin Pen 30 units subcut DAILY Qty: 0 RF: 0 amoxicillin-pot clavulanate 875-125 mg Tablet 1 tab PO BID Qty: 19 RF: 0 ascorbic acid (vitamin C) [Vitamin C] 500 mg Tablet 500 mg PO BID Qty: 0 RF: 0 ferrous sulfate 325 mg (65 mg iron) Tablet 325 mg PO BID Qty: 0 RF: 0 insulin aspart U-100 [Novolog Flexpen U-100 Insulin] 100 unit/mL Insulin Pen See Label Instructions .ROUTE .COMPLEX Qty: 0 RF: 0 lisinopril 10 mg Tablet 10 mg PO DAILY Qty: 0 RF: 0 melatonin 3 mg Tablet Extended Release 9 mg PO DAILY@0000 Qty: 0 RF: 0 carvedilol [Coreg] 6.25 mg tablet 6.25 mg PO BID Qty: 60 RF: 0 Continue furosemide 40 mg Tablet 40 mg PO DAILY RF: 0 prednisone 10 mg Tablet 10 mg PO DAILY RF: 0 venlafaxine 75 mg Tablet 75 mg PO TID RF: 0 loperamide 2 mg Capsule 2 mg PO QID PRNRF: 0 loperamide 2 mg Capsule 2 mg PO DAILY RF: 0 trazodone 50 mg Tablet 50 mg PO HS RF: 0 cyanocobalamin (vitamin B-12) 1,000 mcg Tablet 1,000 mcg PO DAILY RF: 0 aspirin [Aspirin Low Dose] 81 mg Tablet,Delayed Release (Dr/Ec) 81 mg PO BID RF: 0 acetaminophen [Acetaminophen Extra Strength] 500 mg Tablet 500 mg PO BID RF: 0 risperidone 3 mg Tablet 3 mg PO HS RF: 0 nortriptyline 25 mg Capsule 25 mg PO DAILY RF: 0 gabapentin 800 mg Tablet 800 mg PO TID RF: 0 levothyroxine 50 mcg Tablet 50 mcg PO DAILY RF: 0 carbamazepine 100 mg Tablet,Chewable 100 mg PO TID RF: 0 sertraline 25 mg Tablet 25 mg PO DAILY RF: 0 omeprazole 20 mg Capsule,Delayed Release(Dr/Ec) 20 mg PO DAILY RF: 0 folic acid 1 mg Tablet 1 mg PO DAILY RF: 0 multivitamin with iron [One Daily Multi-Vit w-Mineral] Tablet 1 tab PO DAILY RF: 0 omega 5-krn-seo-fish oil [Fish Oil] 1,000 mg (120 mg-180 mg) Capsule 2 cap PO DAILY RF: 0 liraglutide [Victoza 2-Saleem] 0.6 mg/0.1 mL (18 mg/3 mL) Pen Injector 1.2 mg SUBCUT DAILY RF: 0 Discontinued fentanyl 50 mcg/hr Patch 72 Hour 1 patch TRANSDERMAL Q72H RF: 0 insulin glargine [Lantus U-100 Insulin] 100 unit/mL Solution 40 unit SUBCUT BID RF: 0 clonidine HCl 0.3 mg Tablet 0.3 mg PO BID RF: 0 amlodipine 5 mg Tablet 5 mg PO DAILY RF: 0 insulin aspart U-100 [Novolog U-100 Insulin aspart] 100 unit/mL Solution 50 unit SUBCUT QPM RF: 0 lidocaine 5 % Adhesive Patch,Medicated 1 patch TOPICAL DAILY RF: 0 insulin lispro [Humalog U-100 Insulin] 100 unit/mL Solution 40 unit subcut DIRECTED RF: 0 Discharge Instructions Instructions: Cellulitis (DC) Additional Instructions: Finish antibiotics as prescribed. Return to the hospital with any fever, bleeding, chest pain, or shortness of breath. Activity:: Activity as Tolerated Equipment/Supplies:: Walker Diet:: Carb counting heart healthy Discharge Orders Discharge Orders: Discharge Order (Routine); Ordered 12/31/17 Ordered By: Priscila Canela Exam Narrative Exam Narrative: General: Obese male, sitting in bed, comfortable, very awake and interactive Neurological: A&Ox3, no focal deficits Psychiatric: appropriate HEENT: EOMI, MMM, poor dentition Cardiovascular: RRR, no m/r/g Lungs: Diminished breath sounds B Gastrointestinal: Abdomen with a cholecystostomy drain as well as RLQ ileostomy - c/d/i; soft. + bowel sounds Extremities: chronic venous stasis dermatitis; no erythema. +1 edema in BLE's; R great toe dressed DS: Data Vitals/I&O Vitals and I&O: Vital Signs Temperature 37.6 C H 12/31/17 07:48 Temperature Source Temporal Artery Scan 12/31/17 07:48 Pulse 72 12/31/17 07:48 Pulse Rhythm Regular 12/31/17 07:53 Pulse 70 12/28/17 22:00 Respiratory Rate 18 12/31/17 07:48 Respiratory Effort 12/31/17 07:53 Respiratory Depth Normal 12/31/17 07:53 Respiratory Pattern Normal 12/31/17 07:53 Blood Pressure 141/69 H 12/31/17 07:48 Blood Pressure Mean 86 12/31/17 07:45 Blood Pressure Position Sitting 12/28/17 12:15 Pulse Oximetry 96 12/31/17 07:48 Oxygen Delivery Method Room Air 12/31/17 07:48 Oxygen Flow Rate 0 12/31/17 07:48 Pain Level 0 12/31/17 07:48 Comment 12/29/17 02:17 Intake & Output 12/30/17 12/31/17 12/31/17 23:59 11:59 23:59 Intake Total 1500 / 1500 630 / 630 Output Total 1760 / 1760 1200 / 1200 Balance -260 / -260 -570 / -570 Weight 109.8 kg Intake: IV 300 / 300 150 / 150 Oral 1200 / 1200 480 / 480 Output: Drainage 40 / 40 150 / 150 Right Lower Abdomen 40 / 40 150 / 150 Urine 1400 / 1400 600 / 600 Stool 320 / 320 450 / 450 Other: Urine Color Yellow Yellow Urine Appearance Clear Clear Urine Odor Normal None Voiding Methods Urinal Urinal Completed studies during hospitalization [Text1]: CT chest/abdomen/pelvis 12/23/17: Small right pleural effusion and region of consolidation involving the right lung base, which is likely on the basis of atelectasis. I cannot entirely exclude an acute pneumonitis in this patient. Note is made of sequelae of prior granulomatous disease. Chronic bilateral anterior rib fractures are noted. Also, chronic changes involving the glenoid and sternum are identified. Please see the above discussion. A pigtail catheter is coiled in the gallbladder with a trace of residual fluid in this region. Two hyperdensities are noted in the gallbladder fossa, which are felt to represent gallstones. Note is also made of mild splenomegaly. There are findings involving the liver consistent with cirrhosis. Correlation with the patient's clinical status and laboratory tests are suggested. XR R great toe: 1. No definite evidence to suggest osteomyelitis 2. Soft tissue ulceration involving the great toe 3. Deformity involving the distal aspect of the proximal phalanx of the right 3rd toe suspicious for a subacute fracture. Follow up as clinically appropriate. Labs on day of discharge: Labs from last 24 hours 12/31/17 12/31/17 06:35 06:35 WBC 14.77 H RBC 4.03 L Hgb 8.7 L Hct 29.4 L MCV 73.0 L MCH 21.6 L MCHC 29.6 L RDW 19.3 H Plt Count 494 H MPV 9.9 Immature Gran % 0.5 Neutrophils % 73.4 Lymphocytes % 8.2 Monocytes % 5.4 Eosinophils % 12.2 Basophils % 0.3 Absolute Neutrophils 10.84 H Absolute Lymphocytes 1.21 Absolute Monocytes 0.80 H Absolute Eosinophils 1.80 H Absolute Basophils 0.04 Sodium 139 Potassium 3.8 Chloride 106 Carbon Dioxide 23.7 Anion Gap 9.3 BUN 32 H Creatinine 1.83 H Estimated GFR/1.73 m2 38.21 Glucose 192 H Calcium 8.5 Magnesium 2.0
--- NOTE | 2017-12-31 14:28 | PT.INDS ---
Date of service: 12/31/17 Time of Service: 14:29 PT Notes Inpatient Physical Therapy Discharge Summary Date: 12/31/17 Dates of Service: 12/26/17-12/31/17 SUBJECTIVE: NT OBJECTIVE: 12/26/17-12/31/17 Bed Mobility/Transfers: Supine-sit: independent Sit-stand: supervision with FWW Stand-sit: supervision Sit-supine: independent Rolling in bed: independent Gait: SBA with FWW 20ftx2 Balance: Static Sitting: normal Dynamic Sitting: normal Static Standing: fair Dynamic Standing: fair Assessment: Pt is a 57yr old male admitted with cellulitis of right LE and urosepsis in setting of Bipolar Disorder, chronic back pain, lower extremity edema, obesity, diabetes mellitus, diabetic neuropathy, diabetic foot ulcers, rheumatoid arthritis, osteoarthritis bilateral knees, sacral decubitus ulcer, chronic renal insufficiency, coronary artery disease. Patient was seen for 6 PT visits, progressed from SBA gait with FWW 5ft to SBA gait with FWW 20ftx2. Pt is discharged to the [facility], recommend continued rehab in that setting. Goals: Goals X1 week 1. Supine-Sit independent 2. Sit-Supine independent 3. Sit-Stand independent with FWW 4. Stand-Sit independent 5. Bed-Chair supervision with FWW 6. Chair-Bed supervision with FWW 7. Gait SBA with FWW 100ft Pt met goals # 1, 2, 3, 4, 5, 6 DISCHARGE RECOMMENDATIONS: Return to the [facility] in the area mobility of walking and moving around: projected status GP [id number]. Discharge status (if discharging) GP [id number] SARAH Chang PT
--- NOTE | 2017-12-31 14:32 | INDS_ITS ---
Date of service: 12/31/17 Time of Service: 14:29 PT Notes Inpatient Physical Therapy Discharge Summary Date: 12/31/17 Dates of Service: 12/26/17-12/31/17 SUBJECTIVE: NT OBJECTIVE: 12/26/17-12/31/17 Bed Mobility/Transfers: Supine-sit: independent Sit-stand: supervision with FWW Stand-sit: supervision Sit-supine: independent Rolling in bed: independent Gait: SBA with FWW 20ftx2 Balance: Static Sitting: normal Dynamic Sitting: normal Static Standing: fair Dynamic Standing: fair Assessment: Pt is a 57yr old male admitted with cellulitis of right LE and urosepsis in setting of Bipolar Disorder, chronic back pain, lower extremity edema, obesity, diabetes mellitus, diabetic neuropathy, diabetic foot ulcers, rheumatoid arthritis, osteoarthritis bilateral knees, sacral decubitus ulcer, chronic renal insufficiency, coronary artery disease. Patient was seen for 6 PT visits, progressed from SBA gait with FWW 5ft to SBA gait with FWW 20ftx2. Pt is discharged to the [facility], recommend continued rehab in that setting. Goals: Goals X1 week 1. Supine-Sit independent 2. Sit-Supine independent 3. Sit-Stand independent with FWW 4. Stand-Sit independent 5. Bed-Chair supervision with FWW 6. Chair-Bed supervision with FWW 7. Gait SBA with FWW 100ft Pt met goals # 1, 2, 3, 4, 5, 6 DISCHARGE RECOMMENDATIONS: Return to the [facility] in the area mobility of walking and moving around: projected status GP [id number]. Discharge status (if discharging) GP [id number] SARAH Chang PT
--- NOTE | 2017-12-31 14:35 | PDOC.CMDIS ---
LACE Index Scoring Tool - Questions: Length of Stay (in days): 7 - 13 Acuity (Admit via E.D.?): Yes Comorbidities: Diabetes w/o Complication, Congestive Heart Failure, Liver or Renal Disease E.D. Visits: 5 - Answers: Total Score: 17 Risk of Readmission: High Risk Care Management Discharge Reason for Hospitalization: Fever Discharge Plan: Brendan will return to the [facility] when ready per MD-likely via RCT W/C van coordinated by this casualty underwriter. 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 Patient/Family Education Needs: Review of discharge instructions, transfer process, service connection providers, community based supports. Services Needed at Discharge: Chcf Facility (Return to [facility])
--- NOTE | 2017-12-31 14:41 | CMDISCH_ITS ---
LACE Index Scoring Tool - Questions: Length of Stay (in days): 7 - 13 Acuity (Admit via E.D.?): Yes Comorbidities: Diabetes w/o Complication, Congestive Heart Failure, Liver or Renal Disease E.D. Visits: 5 - Answers: Total Score: 17 Risk of Readmission: High Risk Care Management Discharge Reason for Hospitalization: Fever Discharge Plan: Brendan will return to the [facility] when ready per MD-likely via RCT W /C van coordinated by this aligner typewriter. 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 Patient/Family Education Needs: Review of discharge instructions, transfer process, service connection providers, community based supports. Services Needed at Discharge: Senior Living Facility (Return to [facility])
--- NOTE | 2017-12-31 15:25 | CHAPLAIN ---
Brendan asked me about contacting [facility]. He has used their services in the past and he is interested in investigating living options other than the [facility]. I have Brendan the contact information for Hannah and suggested that he also check with Care Management to see if there is a social media assistant at the [facility] who could assist him as well.
== END 2017-12-31 14:30 | disposition skilled nursing facility (03) | DRG 853 ==
LOC: ER 23:33 → ICU 12-24 01:41
PROVIDERS: Internal Medicine; Admitting Provider General Practice; Emergency Provider Student in an Organized Health Care Education/Training Program; PCP Family Medicine; Visit Provider Internal Medicine
DX: A41.9 Sepsis, unspecified organism (principal); G92 Toxic encephalopathy; K50.90 Crohn's disease, unspecified, without complications; L03.116 Cellulitis of left lower limb; L03.115 Cellulitis of right lower limb; E27.49 Other adrenocortical insufficiency; J98.11 Atelectasis; T50.995A Adverse effect of other drugs, medicaments and biological substances, initial encounter; G89.29 Other chronic pain; I25.10 Atherosclerotic heart disease of native coronary artery without angina pectoris; M06.9 Rheumatoid arthritis, unspecified; N18.9 Chronic kidney disease, unspecified; E11.22 Type 2 diabetes mellitus with diabetic chronic kidney disease; R53.1 Weakness; Z73.89 Other problems related to life management difficulty; I12.9 Hypertensive chronic kidney disease with stage 1 through stage 4 chronic kidney disease, or unspecified chronic kidney disease; E11.649 Type 2 diabetes mellitus with hypoglycemia without coma; Z79.52 Long term (current) use of systemic steroids; Z79.899 Other long term (current) drug therapy; E11.621 Type 2 diabetes mellitus with foot ulcer; L97.519 Non-pressure chronic ulcer of other part of right foot with unspecified severity; Z79.4 Long term (current) use of insulin; I87.2 Venous insufficiency (chronic) (peripheral); E11.42 Type 2 diabetes mellitus with diabetic polyneuropathy; Z93.3 Colostomy status
CPT/HCPCS: 36415; 71250; 80048; 80051; 80053; 82805; 84520; 85027; 87040; 87081; 96365; 96368; 96375; 97110; 97162; 97530; 99222; 99232; 99233; 99239; 99285; 36600; 73660; 74176; 80202; 81003; 81015; 82565; 83605; 83735; 85025; 86140; 87086; 87324; J1644; J1720; J2543; J3475; J3490; J7512

== ENCOUNTER 2018-01-06 11:26 | Outpatient (REF) | payer MEDICARE, MEDICAID, SELFPAY ==
[2018-01-06 13:11] LABS: ALT 29 U/L (12-78); AST 23 U/L (15-37); Albumin 2.1 g/dL (3.4-5.0); Alkaline Phosphatase 236 U/L (46-116); Anion Gap 7.7 mmol/L (3-11); BUN 26 mg/dL (7-18); Bilirubin, Total 0.1 mg/dL (0.2-1.0); CO2 25.3 mmol/L (21.0-32.0); CREATININE 1.69 mg/dL (0.70-1.30); Calcium 8.5 mg/dL (8.5-10.1); Chloride 107 mmol/L (98-107); Estimated GFR 41.89 (mL/min/1.73m2); Glucose 223 mg/dL (70-100); Magnesium 1.8 mg/dL (1.8-2.4); Potassium 4.2 mmol/L (3.5-5.1); Sodium 140 mmol/L (136-145); Total Protein 6.2 g/dL (6.4-8.2)
[2018-01-06 13:32] LABS: Abs Immature Grans 0.05 k/cumm (0.0-0.09); Absolute Eosinophil Count 1.37 k/cumm (0.0-0.7); Absolute Lymphocyte Count 1.08 k/cumm (1.2-3.4); Absolute Monocyte Count 0.96 k/cumm (0.11-0.7); Absolute Neutrophil Count 9.11 k/cumm (1.2-6.7); Basophils % 0.8; Eosinophils % 10.8; HCT 30.5 % (40.0-50.0); HGB 8.7 g/dL (13.5-17.5); Immature Grans % 0.4; Lymphocytes % 8.5; Mean Corp. HGB Concentration 28.5 g/dL (32.0-36.0); Mean Corpuscular Hemoglobin 21.6 pg (27.0-33.0); Mean Corpuscular Volume 75.7 fL (80-95); Mean Platelet Volume 10.1 fL (8.0-11.0); Monocytes % 7.6; Neutrophils % 71.9; Platelet Count 497 x1000/uL (130-400); RBC 4.03 m/cumm (4.50-6.00); RBC Distribution Width 20.3 % (11.8-14.1); White Blood Cell Count 12.67 k/cumm (4.4-10.8)
[2018-01-06 14:02] LABS: Diff Comment RBC Morph Reviewed
[2018-01-06 14:03] LABS: Anisocytosis 3+; Basophilic Stippling Present; Hypochromasia 2+; Microcytosis 2+; Ovalocytes 2+; Polychromasia Present
[2018-01-06 14:06] LABS: Poikilocytes 1+
== END 2018-01-06 11:46 ==
LOC: LBN 11:26
PROVIDERS: PCP Family Medicine; Visit Provider Family Medicine
DX: R53.83 Other fatigue (principal); I10 Essential (primary) hypertension; M79.659 Pain in unspecified thigh
CPT/HCPCS: 80053; 83735; 85025

== ENCOUNTER 2018-01-26 16:55 | Inpatient (IN) | payer MEDICARE, MEDICAID, SELFPAY ==
[2018-01-26] VITALS (83 sets, daily range): BP systolic 53–119; BP diastolic 30–68; PULSE 54–71; RESP 9–26; TEMP 35.1–36.7; O2SAT 93–100
--- NOTE | 2018-01-26 17:28 | DI.CT_ITS ---
SYMPTOM/DIAGNOSIS: ALTERED MENTAL STATUS, R/O CVA CT BRAIN: Noncontrast examination was performed. There is mild cerebral atrophy consistent with the patient's age. No intracranial hemorrhage, infarct, midline shift or mass effect is identified. The ventricles are intact. The basilar cisterns are patent. The visualized paranasal sinuses are clear. No fluid levels are seen. The mastoid air cells are well pneumatized. The calvarium is intact. IMPRESSION: No acute intracranial process.
--- NOTE | 2018-01-26 17:28 | DI.RAD_ITS ---
SYMPTOM/DIAGNOSIS: HYPERTENSION, R/O PNEUMONIA CHEST X-RAY: Comparison 11/09/17 Heart size is within normal limits. There is unchanged mild prominence of the pulmonary vasculature. Small right pleural effusion is present. There are bilateral basilar linear infiltrates likely reflecting atelectasis. IMPRESSION: 1. Subsegmental atelectasis in lung bases. 2. Small right pleural effusion and pulmonary venous congestion.
[2018-01-26] MEDS: Normal Saline 1,000 ML 1000 ML IV (17:30)
[2018-01-26 17:48] LABS: Lactate-non-spesis 0.8 mmol/L (0.6-1.4)
[2018-01-26 17:53] LABS: Abs Immature Grans 0.14 k/cumm (0.0-0.09); Absolute Basophil Count 0.05 k/cumm (0.0-0.2); Absolute Monocyte Count 1.16 k/cumm (0.11-0.7); Absolute Neutrophil Count 13.17 k/cumm (1.2-6.7); Basophils % 0.3; Eosinophils % 9.6; HGB 9.4 g/dL (13.5-17.5); Immature Grans % 0.8; Lymphocytes % 7.8; Mean Corp. HGB Concentration 31.3 g/dL (32.0-36.0); Mean Corpuscular Hemoglobin 22.1 pg (27.0-33.0); Mean Corpuscular Volume 70.4 fL (80-95); Mean Platelet Volume 10.1 fL (8.0-11.0); Monocytes % 6.6; Neutrophils % 74.9; Platelet Count 539 x1000/uL (130-400); RBC 4.26 m/cumm (4.50-6.00); RBC Distribution Width 20.7 % (11.8-14.1); White Blood Cell Count 17.58 k/cumm (4.4-10.8)
--- NOTE | 2018-01-26 18:00 | ED.GENADUL_ITS ---
Discharge Plan Disposition Patient Disposition: [facility] INPATIENT Condition: Fair Discharge Details Chief Complaint: AMS/LOC Clinical Impression: Hypotension, Acute kidney injury superimposed on chronic kidney disease, Acute dehydration, Acute UTI, Hyperkalemia Reason For Visit: SUREKHA Primary Care Provider: Anne Horowitz ED Provider: Reny Trejo Home Meds and New Rx's Prescriptions: No Action furosemide 40 mg Tablet 40 mg PO DAILY RF: 0 prednisone 10 mg Tablet 10 mg PO DAILY RF: 0 venlafaxine 75 mg Tablet 75 mg PO TID RF: 0 loperamide 2 mg Capsule 2 mg PO QID PRNRF: 0 loperamide 2 mg Capsule 2 mg PO DAILY RF: 0 trazodone 50 mg Tablet 50 mg PO HS RF: 0 cyanocobalamin (vitamin B-12) 1,000 mcg Tablet 1,000 mcg PO DAILY RF: 0 aspirin [Aspirin Low Dose] 81 mg Tablet,Delayed Release (Dr/Ec) 81 mg PO BID RF: 0 acetaminophen [Acetaminophen Extra Strength] 500 mg Tablet 500 mg PO BID RF: 0 risperidone 3 mg Tablet 3 mg PO HS RF: 0 nortriptyline 25 mg Capsule 25 mg PO DAILY RF: 0 gabapentin 800 mg Tablet 800 mg PO TID RF: 0 levothyroxine 50 mcg Tablet 50 mcg PO DAILY RF: 0 carbamazepine 100 mg Tablet,Chewable 100 mg PO TID RF: 0 sertraline 25 mg Tablet 25 mg PO DAILY RF: 0 omeprazole 20 mg Capsule,Delayed Release(Dr/Ec) 20 mg PO DAILY RF: 0 folic acid 1 mg Tablet 1 mg PO DAILY RF: 0 multivitamin with iron [One Daily Multi-Vit w-Mineral] Tablet 1 tab PO DAILY RF: 0 omega 8-gqm-nwy-fish oil [Fish Oil] 1,000 mg (120 mg-180 mg) Capsule 2 cap PO DAILY RF: 0 liraglutide [Victoza 2-Saleem] 0.6 mg/0.1 mL (18 mg/3 mL) Pen Injector 1.2 mg SUBCUT DAILY RF: 0 clonidine HCl [Catapres] 0.1 mg Tablet 0.3 mg PO TID Qty: 0 RF: 0 ammonium lactate 12 % Lotion See Label Instructions .ROUTE .COMPLEX Qty: 0 RF: 0 amlodipine 5 mg Tablet 10 mg PO DAILY Qty: 0 RF: 0 insulin glargine [Lantus Solostar U-100 Insulin] 100 unit/mL (3 mL) Insulin Pen 30 units subcut DAILY Qty: 0 RF: 0 amoxicillin-pot clavulanate 875-125 mg Tablet 1 tab PO BID Qty: 19 RF: 0 ascorbic acid (vitamin C) [Vitamin C] 500 mg Tablet 500 mg PO BID Qty: 0 RF: 0 ferrous sulfate 325 mg (65 mg iron) Tablet 325 mg PO BID Qty: 0 RF: 0 insulin aspart U-100 [Novolog Flexpen U-100 Insulin] 100 unit/mL Insulin Pen See Label Instructions .ROUTE .COMPLEX Qty: 0 RF: 0 lisinopril 10 mg Tablet 10 mg PO DAILY Qty: 0 RF: 0 melatonin 3 mg Tablet Extended Release 9 mg PO DAILY@0000 Qty: 0 RF: 0 carvedilol [Coreg] 6.25 mg tablet 6.25 mg PO BID Qty: 60 RF: 0 Medical Decision Making 57yo M w/ a h/o obesity, BM, CAD, cardiac arrest in 10/2017, htn who presents from the [facility] for lethargy and hallucinations. BP per EMS within normal limits. BP hypotensive shortly after arrival, 81/43. Glucose 123 on arrival. Pt oriented x 3 and able to follow commands but is drowsy. Airway intact. Significantly dry MM. Differential diagnoses includes cva, infection. ACS. electrolyte abnormality, DKA. Will place 2 large bore IV, IVF, labs, lactate, blood cultures, CT head, cxr. Review of records note that pt was admitted here on 12/23 for sepsis due to b/l diabetic toe ulcers, blood cultures were negative. No acute signs of obvious cellulitis of toe ulcers on exam. EKG notes a rate of 59, sinus bradycardia, first-degree block, QTC 410, QRS 112. No acute ST elevation or depression. 1900 -- labs reviewed and noted a white blood cell count of 17, hemoglobin 9.4, sodium 134, potassium 6.8, bicarb 16, anion gap 14, BUN 87, creatinine 5.24, GFR 11, glucose 114, lactate 0.8, magnesium 1.6, troponin negative, TSH 0.54. Urinalysis notes greater than 50 WBCs and large leukocyte esterase. CT head, chest x-ray notes linear bibasilar opacities most likely subsegmental atelectasis -has no complaint of shortness of breath, with normal respiratory rate oxygen saturation, so doubt pneumonia. BP improved to 92/46. Patient more awake and alert. Patient's presentation may be more consistent with dehydration, acute kidney injury due to prerenal cause due to dehydration, will admit for ivf, IV antibiotics, electrolyte monitoring. 1813 --d/w hospitalist -- accepts pt for admission. HPI General Mode of arrival: EMS . Date/Time Provider Initiated Documentation: 01/26/18 16:58 . Limitations to Documentation: no limitations . Information obtained by: patient . HPI Narrative: Pt is a 57yo M w/ a h/o cardiac arrest, CKD, DM, HTN, obesity, hypothyroidism who presents from the [facility] for lethargy and hallucinations. Pt is oriented x 3 and states he does not think he was hallucinating, he states he was hungry and cold at the [facility]. States he has not eaten anything since yesterday. Denies pain. Related Data Home Medications Medication Instructions Recorded Confirmed acetaminophen [Acetaminophen Extra 500 mg PO BID 12/23/17 12/23/17 Strength] aspirin [Aspirin Low Dose] 81 mg PO BID 12/23/17 12/23/17 carbamazepine 100 mg PO TID 12/23/17 12/23/17 cyanocobalamin (vitamin B-12) 1,000 mcg PO DAILY 12/23/17 12/23/17 folic acid 1 mg PO DAILY 12/23/17 12/23/17 furosemide 40 mg PO DAILY 12/23/17 12/23/17 gabapentin 800 mg PO TID 12/23/17 12/23/17 levothyroxine 50 mcg PO DAILY 12/23/17 12/23/17 liraglutide [Victoza 2-Saleem] 1.2 mg SUBCUT DAILY 12/23/17 12/23/17 loperamide 2 mg PO DAILY 12/23/17 12/23/17 loperamide 2 mg PO QID PRN 12/23/17 12/23/17 multivitamin with iron [One Daily 1 tab PO DAILY 12/23/17 12/23/17 Multi-Vit w-Mineral] nortriptyline 25 mg PO DAILY 12/23/17 12/23/17 omega 8-adb-dye-fish oil [Fish Oil] 2 cap PO DAILY 12/23/17 12/23/17 omeprazole 20 mg PO DAILY 12/23/17 12/23/17 prednisone 10 mg PO DAILY 12/23/17 12/23/17 risperidone 3 mg PO HS 12/23/17 12/23/17 sertraline 25 mg PO DAILY 12/23/17 12/23/17 trazodone 50 mg PO HS 12/23/17 12/23/17 venlafaxine 75 mg PO TID 12/23/17 12/23/17 amlodipine 10 mg PO DAILY #0 tab 12/31/17 ammonium lactate See Label Instructions .ROUTE 12/31/17 .COMPLEX #0 tube amoxicillin-pot clavulanate 1 tab PO BID #19 tab 12/31/17 ascorbic acid (vitamin C) [Vitamin 500 mg PO BID #0 tab 12/31/17 C] carvedilol [Coreg] 6.25 mg PO BID #60 tab 12/31/17 clonidine HCl [Catapres] 0.3 mg PO TID #0 tab 12/31/17 ferrous sulfate 325 mg PO BID #0 tab 12/31/17 insulin aspart U-100 [Novolog See Label Instructions .ROUTE 12/31/17 Flexpen U-100 Insulin] .COMPLEX #0 ml insulin glargine [Lantus Solostar 30 units SUBCUT DAILY #0 ml 12/31/17 U-100 Insulin] lisinopril 10 mg PO DAILY #0 tab 12/31/17 melatonin 9 mg PO DAILY@0000 #0 tab 12/31/17 Previous Rx's Medication Instructions Recorded amlodipine 10 mg PO DAILY #0 tab 12/31/17 ammonium lactate See Label Instructions .ROUTE 12/31/17 .COMPLEX #0 tube amoxicillin-pot clavulanate 1 tab PO BID #19 tab 12/31/17 ascorbic acid (vitamin C) [Vitamin 500 mg PO BID #0 tab 12/31/17 C] carvedilol [Coreg] 6.25 mg PO BID #60 tab 12/31/17 clonidine HCl [Catapres] 0.3 mg PO TID #0 tab 12/31/17 ferrous sulfate 325 mg PO BID #0 tab 12/31/17 insulin aspart U-100 [Novolog See Label Instructions .ROUTE 12/31/17 Flexpen U-100 Insulin] .COMPLEX #0 ml insulin glargine [Lantus Solostar 30 units SUBCUT DAILY #0 ml 12/31/17 U-100 Insulin] lisinopril 10 mg PO DAILY #0 tab 12/31/17 melatonin 9 mg PO DAILY@0000 #0 tab 12/31/17 Allergies Allergy/AdvReac Type Severity Reaction Status Date / Time No Known Allergies Allergy Unverified 11/09/17 03:12 General Stated Complaint: AMS/LOC YVES: 1 Review of Systems Review of Systems All systems reviewed & are unremarkable except as noted in HPI and below Constitutional Reports as per HPI, Denies chills and Denies fever(s) Eyes Denies blurry vision ENT Denies dizziness, Denies sore throat and Denies throat swelling Cardiovascular Denies chest pain and Denies dyspnea Respiratory Denies dyspnea Gastrointestinal Denies abdominal pain, Denies diarrhea and Denies vomiting Genitourinary Denies hematuria and Denies dysuria Musculoskeletal Denies back pain and Denies numbness Integumentary/Breasts Denies lesions and Denies rash Neurologic Denies dizziness and Denies numbness Allergic/Immunologic Denies throat swelling PFSH CKD (chronic kidney disease) (Chronic) Cardiopulmonary arrest with successful resuscitation (Resolved) Heme positive stool (Chronic) Pedal edema (Chronic) Chronic insomnia (Chronic) Anxiety (Chronic) Diabetes mellitus type 2, controlled (Chronic) Hypertension (Chronic) Chronic pain (Chronic) Hypothyroidism (Chronic) Obesity (Chronic) Back pain (Chronic 06/21/13) Inability to get out of bed (Chronic 06/21/13) Poor self care (Chronic 06/21/13) Chronic bipolar disorder (Chronic) CAD (coronary artery disease) (Chronic) Dyslipidemia (Chronic) Hypoandrogenism (Chronic) Rheumatoid arthritis (Chronic) Crohns disease (Chronic) Osteoarthritis of both knees (Chronic) Cholelithiasis (Chronic) Impaired mobility and ADLs (Chronic) Acute congestive heart failure (Chronic) Hemorrhagic cystitis (Chronic) Anemia (Chronic) Bipolar 1 disorder (Chronic) CAD (coronary artery disease) (Chronic) Chronic anxiety (Chronic) Chronic pain (Chronic) 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) Dyslipidemia (Chronic) Hypertension (Chronic) Arthroplasty of knee (Resolved 03/18/12) Fracture, Open Treatment (Resolved) Medical History CKD (chronic kidney disease) (Chronic) Cardiopulmonary arrest with successful resuscitation (Resolved) Heme positive stool (Chronic) Pedal edema (Chronic) Chronic insomnia (Chronic) Anxiety (Chronic) Diabetes mellitus type 2, controlled (Chronic) Hypertension (Chronic) Chronic pain (Chronic) Hypothyroidism (Chronic) Obesity (Chronic) Back pain (Chronic 06/21/13) Inability to get out of bed (Chronic 06/21/13) Poor self care (Chronic 06/21/13) Chronic bipolar disorder (Chronic) CAD (coronary artery disease) (Chronic) Dyslipidemia (Chronic) Hypoandrogenism (Chronic) Rheumatoid arthritis (Chronic) Crohns disease (Chronic) Osteoarthritis of both knees (Chronic) Cholelithiasis (Chronic) Impaired mobility and ADLs (Chronic) Acute congestive heart failure (Chronic) Hemorrhagic cystitis (Chronic) Anemia (Chronic) Bipolar 1 disorder (Chronic) CAD (coronary artery disease) (Chronic) Chronic anxiety (Chronic) Chronic pain (Chronic) 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) Dyslipidemia (Chronic) Hypertension (Chronic) Social History housing: [facility] Smoking/Tobacco Use Status: Never Surgical History Arthroplasty of knee (Resolved 03/18/12) Fracture, Open Treatment (Resolved) Social History housing: [facility] Smoking/Tobacco Use Status: Never Exam Const General: ill appearing Orientation: other (drowsy) HENMT Ears: hearing grossly normal bilaterally and external ears normal General nose exam: external nose normal Face and sinus: normal facial exam Mouth: mucous membranes dry (significantly dry ) Teeth and gingiva: poor dentition Eyes Conjunctivae: conjunctival abnormality bilaterally discharge mucoid Pupils: PERRL Neck Neck: normal visual inspection Chest Chest: normal inspection of the chest Resp Effort & Inspection: normal respiratory effort and able to speak in complete sentences Auscultation: clear to auscultation bilaterally Cardio Rate: regular rate Rhythm: regular rhythm GI Inspection: other (colostomy bag RLQ. Pigtail catheter RUQ in gallbladder) Palpation: soft, not firm, no guarding, no hepatosplenomegaly, no masses and nontender Auscultation: normal bowel sounds Skin General skin exam: no rashes or lesions noted Neuro General: awake, oriented x3, moves all extremities and other (drowsy but arousable and able to answer questions and follow commands) Cognition: normal cognition Speech: speech normal Motor: muscle tone normal throughout Extrem Other: bandages on distal b/l toes, bandages removed and note a 0.5x0.5cm open ulcer R 1st toe and 1x1cm open ulcer lateral R foot near base of 5th toe with minimal erythema. L 1st toe amputated tip w/o erythema/edema. Psych Appearance: grossly normal Mental Status: mental status grossly normal Speech and Movement: speech and movement normal Thought Process: normal Course Vital Signs Respiratory Rate 19 01/26/18 16:56 Pulse Oximetry 96 01/26/18 16:56 Temperature 98.1 F 01/26/18 17:15 Temperature Source Skin 01/26/18 17:15 Pulse 59 L 01/26/18 17:17 Pulse 59 L 01/26/18 17:20 Respiratory Rate 25 H 01/26/18 17:20 Blood Pressure 89/41 L 01/26/18 17:17 Blood Pressure Mean 53 01/26/18 17:17 Blood Pressure Position Supine 01/26/18 17:15 Pulse Oximetry 99 01/26/18 17:20 Oxygen Delivery Method Room Air 01/26/18 17:15 Oxygen Flow Rate 0 01/26/18 17:15 Lab/Test Results Lab/Test Results: 01/26/18 17:28 Blood Blood Culture - Pending 01/26/18 17:28 Blood Blood Culture - Pending
[2018-01-26 18:01] LABS: Absolute Eosinophil Count 1.69 k/cumm (0.0-0.7); Absolute Lymphocyte Count 1.37 k/cumm (1.2-3.4)
[2018-01-26 18:04] LABS: INR 1.2 (1.0-3.5); PTT Activated 26.2 sec (21.0-31.4); Prothrombin Time 11.5 sec (9.3-10.8)
[2018-01-26 18:10] LABS: Bilirubin Small (Negative); Blood Large (Negative); Clarity Cloudy; Glucose Negative (Negative); Ketones Trace mg/dL (Negative); Leukocyte Esterase Large (Negative); Nitrite Negative (Negative); Specific Gravity 1.025 (1.005-1.025); Urobilinogen 0.2 EU/dL (Up TO 0.2); pH 5.5 (5-8)
[2018-01-26 18:12] LABS: ALT 20 U/L (12-78); AST 11 U/L (15-37); Albumin 2.2 g/dL (3.4-5.0); Alkaline Phosphatase 341 U/L (46-116); Anion Gap 14.3 mmol/L (3-11); Bilirubin, Total 0.2 mg/dL (0.2-1.0); CO2 16.7 mmol/L (21.0-32.0); Calcium 8.8 mg/dL (8.5-10.1); Chloride 103 mmol/L (98-107); Estimated GFR 11.35 (mL/min/1.73m2); Glucose 114 mg/dL (70-100); Magnesium 1.6 mg/dL (1.8-2.4); Sodium 134 mmol/L (136-145); Total Protein 7.6 g/dL (6.4-8.2)
[2018-01-26 18:22] LABS: Troponin I < 0.02 ng/mL (0.00-0.06)
[2018-01-26 18:23] LABS: Other Cells Few Yeast (Negative); WBC >50 HPF (0-5)
[2018-01-26 18:24] LABS: C & S Indicated? Yes
[2018-01-26 18:30] LABS: BUN 87 mg/dL (7-18)
[2018-01-26 18:31] LABS: CREATININE 5.24 mg/dL (0.70-1.30); Potassium 6.8 mmol/L (3.5-5.1)
[2018-01-26 18:38] LABS: Diff Comment RBC Morph Reviewed
[2018-01-26 18:39] LABS: Anisocytosis 3+; Microcytosis 3+
[2018-01-26 18:54] LABS: TSH 0.54 uIU/mL (0.358-3.74)
--- NOTE | 2018-01-26 18:57 | DI.VRAD_ITS ---
EXAM: CT Head Without Intravenous Contrast EXAM DATE/TIME: 01/26/2018 5:30 PM CLINICAL HISTORY: 57 years old, male; Signs and symptoms; Altered mental status/memory loss; Patient HX: AMS; Additional info: R/O CVA TECHNIQUE: Axial computed tomography images of the head/brain without intravenous contrast. Coronal and sagittal reformatted images were created and reviewed. COMPARISON: CT HEAD WITHOUT CONTRAST 05/23/2016 10:59 AM FINDINGS: Brain: Mild cerebral atrophy. No edema, hemorrhage or midline shift. Ventricles: No ventriculomegaly. Bones/joints: No acute fracture. Sinuses: No acute sinusitis. Mastoid air cells: No mastoid effusion. Soft tissues: No suspicious lesions. IMPRESSION: No acute intracranial findings. Dictated and Authenticated by: Sandra Santos MD. Ordering:JORGE BENAVIDES MD
--- NOTE | 2018-01-26 18:59 | DI.VRAD_ITS ---
EXAM: XR Chest, 2 Views EXAM DATE/TIME: 01/26/2018 6:40 PM CLINICAL HISTORY: 57 years old, male; Signs and symptoms; Shortness of breath; Additional info: Hypotension TECHNIQUE: XR of the chest, 2 views. COMPARISON: SC XR PORTABLE CHEST AP 11/09/2017 1:08 PM FINDINGS: Lungs: Low lung volumes. Linear bibasilar opacities. No chai air space consolidation given position and projection. Pleural space: Small right pleural effusion and vascular congestion similar to the previous study. Heart/Mediastinum: No cardiomegaly. Bones/joints: No acute fracture. IMPRESSION: 1. Linear bibasilar opacities most consistent with subsegmental atelectasis. 2. Small right pleural effusion and vascular congestion similar to the previous study. Dictated and Authenticated by: Sandra Santos MD. Ordering:JORGE BENAVIDES MD
[2018-01-26] MEDS: Calcium Chloride 1000 MG/10 ML SYR IVP (19:02)
[2018-01-26] MEDS: Insulin REGULAR-Human 100 UNITS/ML UNIT SC (19:06)
[2018-01-26] MEDS: Normal Saline 250 ML 500 ML IV (19:10)
[2018-01-26] MEDS: Sodium Bicarbonate 50 MEQ/50 ML SYR IVP (19:15)
[2018-01-26] MEDS: Normal Saline Flush 10 ML SYR IVP (19:16)
[2018-01-26] MEDS: Albuterol 2.5 MG/3 ML INH SOLN VIAL 5 MG UPD (19:26)
[2018-01-26] MEDS: PIPERACILLIN/TAZO 3.375 GM in Normal Saline 50 ML IVPB (19:27)
--- NOTE | 2018-01-26 21:06 | W.PM.HP.N ---
Date of service: 01/26/18 Time of Service: 21:10 Assessment and Plan (1) Sepsis: Current visit: Yes Status: Acute probable urosepsis, although CXR suggested bibasilar infiltrates vs atelectasis, he has no sx of pneumonia but his UA is c/w UTI. He has persistent hypotension although improving w/ iv fluids. cont. Zosyn begun in the ER. At present he does not appear to need vasopressors. he has hyperkalemia from his acute renal failure. He was treated w/ iv calcium chloride, HCO3 and insulin and dextrose 50%. However he was not given kayexalate although I asked the ER to do so. I have ordered stat BMP to follow up on his levels tonight. If it remains over 6 then I will give him kayexalate otherwise if his renal function is responding to iv fluids then I will just monitor his levels. (2) Complicated UTI (urinary tract infection): Current visit: Yes Status: Acute cont. iv Zosyn and check renal US in the a.m. (3) Dehydration: Current visit: Yes Status: Acute continue iv fluid hydration however have to watch that he does not go into acute CHF. He has hx of CHF although his last echo done here at [facility] in October 23, 2015 demonstrated preserved systolic fx w/ LVEF 65% and no RWMA and no elevated LV filling pressures. RV was poorly visualized. (4) JESUS (acute kidney injury): Current visit: Yes Status: Acute secondary to dehydration. cont. iv fluids for now, monitor urine output and BMP. check renal US in a.m. (5) Hyperkalemia: Current visit: Yes Status: Acute recheck BMP stat and if K+ is still over 6 then will retreat w/ calcium, sodium bicarbonate and give kayexalate. hopefully w/ hydration his levels will normalize (6) Conjunctivitis: Current visit: Yes Status: Acute will give him Ciloxan topically (7) Poorly controlled type 2 diabetes mellitus with circulatory disorder: Current visit: Yes Status: Chronic cont. his home dose of Lantus and use Novolog sliding scale as well as carbohydrate coverage (8) Diabetic foot ulcer: Current visit: Yes Status: Chronic His right lateral foot ulcer and his right great toe appear to be dry w/ granulation tissue. However, he has been followed by Dr. Harris Ashford, podiatry and has been on Augmentin for the foot ulcer. I could not find any wound cultures from his December or October hospital visits however he had Group C Strep bacteremia which was presumed to be from his foot back in 2017. Zosyn should more than adequately cover his foot ulcer as well as any complicated UTI. History of Present Illness Chief Complaint: Acute mental status change Narrative: 49-year-old male with a history of obesity, coronary artery disease, previous cardiac arrest in October 2017, essential hypertension, who was just discharged from [facility] on December 31, 2017 after being treated for 8 days as an inpatient for sepsis due to cellulitis of his lower extremities including right great toe diabetic ulcer. During that hospitalization was evaluated by podiatry who recommended 10-day course of outpatient oral Augmentin at the nursing facility along with wet-to-dry dressing changes every 12 hours along with Santyl ointment to the base the wound and nonweightbearing to his right foot. During the hospitalization was initially treated with vancomycin and Zosyn for sepsis with cellulitis. UTI and pneumonia were ruled out. His blood cultures eventually came back negative. His encephalopathy cleared at the first 48 hours of hospital stay. His fentanyl patch was discontinued. At the time of discharge he was Ambulating with a walker with nonweightbearing on the right great toe ulcer. He now presents to the emergency department from the [facility] in [facility] with acute mental status change. He reportedly had been very lethargic and having hallucinations. No records were sent with him from the [facility]. Upon arrival by EMS blood pressure was reported within normal limits but shortly after arrival to the emergency department he became hypotensive with a blood pressure 81/43. Glucose was 123 on admission. Although his report is being oriented x3 and able to follow commands he was very drowsy per emergency room attending his description. Mucous membranes are significantly dry. EKG was noted to be sinus bradycardia with first-degree block with a rate of [address] elevation or depression. Laboratory workup demonstrate a leukocytosis of 17,000 and a stable anemia with hemoglobin 9.4 g. He had a metabolic acidosis with a serum bicarbonate of 16 anion gap of 14 along with acute kidney injury with a BUN of 87 and creatinine 5.24. Lactate level 0.8. Troponin was negative. TSH was normal. Urinalysis showed greater than 50 white cells and large amount leukocyte esterase suggestive of a UTI. CT scan of his head failed to show any acute abnormalities. Chest x-ray showed some linear bibasilar opacities suggestive of subsegmental atelectasis. With IV fluids blood pressure improved at 92/46 he became more awake and alert. Patient is now admitted to the intensive care unit for treatment of severe dehydration, acute kidney injury, sepsis from complicated UTI. Also of importance was a presentation with hyperkalemia of 6.8 whereas his baseline potassium 3 weeks ago was 4.2. Patient was treated in the emergency room with IV dextrose 50% and insulin 5 units subcutaneous and calcium chloride 1 g IV push. Also after obtaining blood and urine cultures he was started on Zosyn 3.375 g IV. Review of Systems Review of Systems Unobtainable due to mental condition [facility] Diabetic foot ulcer (Chronic) Poorly controlled type 2 diabetes mellitus with circulatory disorder (Chronic) CKD (chronic kidney disease) (Chronic) Cardiopulmonary arrest with successful resuscitation (Resolved) Heme positive stool (Chronic) Pedal edema (Chronic) Chronic insomnia (Chronic) Anxiety (Chronic) Diabetes mellitus type 2, controlled (Chronic) Hypertension (Chronic) Chronic pain (Chronic) Hypothyroidism (Chronic) Obesity (Chronic) Back pain (Chronic 06/21/13) Inability to get out of bed (Chronic 06/21/13) Poor self care (Chronic 06/21/13) Chronic bipolar disorder (Chronic) CAD (coronary artery disease) (Chronic) Dyslipidemia (Chronic) Hypoandrogenism (Chronic) Rheumatoid arthritis (Chronic) Crohns disease (Chronic) Osteoarthritis of both knees (Chronic) Cholelithiasis (Chronic) Impaired mobility and ADLs (Chronic) Acute congestive heart failure (Chronic) Hemorrhagic cystitis (Chronic) Anemia (Chronic) Bipolar 1 disorder (Chronic) CAD (coronary artery disease) (Chronic) Chronic anxiety (Chronic) Chronic pain (Chronic) 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) Dyslipidemia (Chronic) Hypertension (Chronic) Arthroplasty of knee (Resolved 03/18/12) Fracture, Open Treatment (Resolved) Medical History CKD (chronic kidney disease) (Chronic) Cardiopulmonary arrest with successful resuscitation (Resolved) Heme positive stool (Chronic) Pedal edema (Chronic) Chronic insomnia (Chronic) Anxiety (Chronic) Diabetes mellitus type 2, controlled (Chronic) Hypertension (Chronic) Chronic pain (Chronic) Hypothyroidism (Chronic) Obesity (Chronic) Back pain (Chronic 06/21/13) Inability to get out of bed (Chronic 06/21/13) Poor self care (Chronic 06/21/13) Chronic bipolar disorder (Chronic) CAD (coronary artery disease) (Chronic) Dyslipidemia (Chronic) Hypoandrogenism (Chronic) Rheumatoid arthritis (Chronic) Crohns disease (Chronic) Osteoarthritis of both knees (Chronic) Cholelithiasis (Chronic) Impaired mobility and ADLs (Chronic) Acute congestive heart failure (Chronic) Hemorrhagic cystitis (Chronic) Anemia (Chronic) Bipolar 1 disorder (Chronic) CAD (coronary artery disease) (Chronic) Chronic anxiety (Chronic) Chronic pain (Chronic) 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) Dyslipidemia (Chronic) Hypertension (Chronic) Social History housing: residential Smoking/Tobacco Use Status: Never Surgical History Arthroplasty of knee (Resolved 03/18/12) Fracture, Open Treatment (Resolved) Social History housing: residential Smoking/Tobacco Use Status: Never Meds Home Medications Medication Instructions Recorded Confirmed Type acetaminophen [Acetaminophen Extra 500 mg PO BID 12/23/17 01/26/18 History Strength] aspirin [Aspirin Low Dose] 81 mg PO BID 12/23/17 01/26/18 History carbamazepine 100 mg PO TID 12/23/17 01/26/18 History cyanocobalamin (vitamin B-12) 1,000 mcg PO DAILY 12/23/17 01/26/18 History folic acid 1 mg PO DAILY 12/23/17 01/26/18 History furosemide 40 mg PO DAILY 12/23/17 01/26/18 History gabapentin 800 mg PO TID 12/23/17 01/26/18 History levothyroxine 50 mcg PO DAILY 12/23/17 01/26/18 History liraglutide [Victoza 2-Saleem] 1.2 mg SUBCUT DAILY 12/23/17 01/26/18 History loperamide 2 mg PO DAILY 12/23/17 01/26/18 History loperamide 2 mg PO QID PRN 12/23/17 01/26/18 History multivitamin with iron [One Daily 1 tab PO DAILY 12/23/17 01/26/18 History Multi-Vit w-Mineral] nortriptyline 25 mg PO DAILY 12/23/17 01/26/18 History omega 0-srl-wju-fish oil [Fish Oil] 2 cap PO DAILY 12/23/17 01/26/18 History omeprazole 20 mg PO DAILY 12/23/17 01/26/18 History prednisone 10 mg PO DAILY 12/23/17 01/26/18 History risperidone 3 mg PO HS 12/23/17 01/26/18 History sertraline 25 mg PO DAILY 12/23/17 01/26/18 History trazodone 50 mg PO HS 12/23/17 01/26/18 History venlafaxine 75 mg PO TID 12/23/17 01/26/18 History amlodipine 10 mg PO DAILY #0 tab 12/31/17 01/26/18 Rx ammonium lactate See Label Instructions .ROUTE 12/31/17 01/26/18 Rx .COMPLEX #0 tube amoxicillin-pot clavulanate 1 tab PO BID #19 tab 12/31/17 01/26/18 Rx ascorbic acid (vitamin C) [Vitamin 500 mg PO BID #0 tab 12/31/17 01/26/18 Rx C] carvedilol [Coreg] 6.25 mg PO BID #60 tab 12/31/17 01/26/18 Rx clonidine HCl [Catapres] 0.3 mg PO TID #0 tab 12/31/17 01/26/18 Rx ferrous sulfate 325 mg PO BID #0 tab 12/31/17 01/26/18 Rx insulin aspart U-100 [Novolog See Label Instructions .ROUTE 12/31/17 01/26/18 Rx Flexpen U-100 Insulin] .COMPLEX #0 ml insulin glargine [Lantus Solostar 30 units SUBCUT DAILY #0 ml 12/31/17 01/26/18 Rx U-100 Insulin] lisinopril 10 mg PO DAILY #0 tab 12/31/17 01/26/18 Rx melatonin 9 mg PO DAILY@0000 #0 tab 12/31/17 01/26/18 Rx Allergies Allergy/AdvReac Type Severity Reaction Status Date / Time No Known Allergies Allergy Unverified 01/26/18 19:46 Exam Const General: cooperative, disheveled and ill appearing chronically Nutritional Appearance: overweight Orientation: alert, awake and oriented to person [facility] Head: normal to inspection, no palpable skull fracture, normocephalic and atraumatic Ears: hearing grossly normal bilaterally General nose exam: external nose normal and mucous membranes and turbinates abnormal other (Dry) Face and sinus: normal facial exam Mouth: oral mucosa abnormal other (Dry) Teeth and gingiva: caries and poor dentition Throat: posterior oropharynx normal Eyes Visual Bear: normal visual bear by confrontation Alignment and Position: alignment normal Eyelids: eyelids normal Conjunctivae: conjunctival abnormality bilaterally discharge purulent Neck Neck: normal visual inspection, full ROM, no lymphadenopathy, trachea midline and supple Resp Effort & Inspection: normal respiratory effort and able to speak in complete sentences Auscultation: clear to auscultation bilaterally Cardio Jugular venous pressure: no JVD Palpation: normal PMI Rate: regular rate Rhythm: regular rhythm Heart Sounds: S1 normal, S2 normal, normal, physiologic split S2, no gallops, no murmurs and no rubs Bruits: no abdominal aortic bruits and no carotid bruits Pulses: posterior tibial pulses present bilaterally 1+ and diminished and dorsalis pedis pulses present bilaterally 1+ and diminished GI Inspection: other (Right-sided abdomen has ostomy with a T-tube draining bilious material) Palpation: soft and no hepatosplenomegaly Percussion: normal to percussion Auscultation: normal bowel sounds Male General Exam: Yes normal external exam Back/Spine/Pelvis Back: no CVA tenderness Thoracic/Lumbar Spine: thoracic and lumbar spine normal to inspection Skin General skin exam: dry skin and other (Bilateral pretibial stasis dermatitis skin changes) Hair: general thinning Nails: dystrophic Neuro General: alert, awake, oriented Patient Orientation: Person, moves all extremities, no focal motor deficits and decrease sensation to monofilament Extrem General: full ROM and normal capillary refill Right lower extremity: foot Details: abnormal to inspection (Right lateral foot ulcer 2.2 cm, shallow and w/ granulation tissue but no purulent drainage; dry healing ulcer over right great toe) Psych Appearance: grossly normal Mental Status: other (slow to respond but answers appropriately) Speech and Movement: speech and movement normal Mood: other (slow to respond but answers appropriately) Affect: normal affect Attitude: cooperative Thought Process: circumstantial Thought Content: normal Insight: limited Judgment: limited Results Imaging Chest x-ray: report reviewed (IMPRESSION: 1. Linear bibasilar opacities most consistent with subsegmental atelectasis. 2. Small right pleural effusion and vascular congestion similar to the previous study. Dictated and Authenticated by: Sandra Santos MD) Additional studies: CT head w/out contrast: IMPRESSION: No acute intracranial findings. Dictated and Authenticated by: Sandra Santos MD. Labs : 01/27/18 06:10 01/27/18 06:10 Laboratory Results - last 24 hr 01/26/18 01/26/18 01/26/18 17:15 17:28 17:28 WBC RBC Hgb Hct MCV MCH MCHC RDW Plt Count MPV Immature Gran % Neutrophils % Lymphocytes % Monocytes % Eosinophils % Basophils % Absolute Neutrophils Absolute Lymphocytes Absolute Monocytes Absolute Eosinophils Absolute Basophils Differential Comment RBC Morphology Anisocytosis Microcytosis PT INR APTT Sodium 134 L Potassium 6.8 H* Chloride 103 Carbon Dioxide 16.7 L Anion Gap 14.3 H BUN 87 H* Creatinine 5.24 H* Estimated GFR/1.73 m2 11.35 Glucose 114 H Lactate 0.8 Calcium 8.8 Magnesium 1.6 L Total Bilirubin 0.2 AST 11 L ALT 20 Alkaline Phosphatase 341 H Troponin I < 0.02 Total Protein 7.6 Albumin 2.2 L TSH 0.54 Urine Color Urine Clarity Urine pH Ur Specific [place] Urine Protein Urine Ketones Urine Blood Urine Nitrite Urine Bilirubin Urine Urobilinogen Ur Leukocyte Esterase Urine RBC Urine WBC Ur Epithelial Cells Urine Crystals Urine Bacteria Urine Mucus Urine Other Ur Culture Indicated? Urine Glucose 01/26/18 01/26/18 01/26/18 17:28 17:28 17:50 WBC 17.58 H RBC 4.26 L Hgb 9.4 L Hct 30.0 L MCV 70.4 L MCH 22.1 L MCHC 31.3 L RDW 20.7 H Plt Count 539 H MPV 10.1 Immature Gran % 0.8 Neutrophils % 74.9 Lymphocytes % 7.8 Monocytes % 6.6 Eosinophils % 9.6 Basophils % 0.3 Absolute Neutrophils 13.17 H Absolute Lymphocytes 1.37 Absolute Monocytes 1.16 H Absolute Eosinophils 1.69 H Absolute Basophils 0.05 Differential Comment Rbc morph reviewed RBC Morphology See below Anisocytosis 3+ Microcytosis 3+ PT 11.5 H INR 1.2 APTT 26.2 Sodium Potassium Chloride Carbon Dioxide Anion Gap BUN Creatinine Estimated GFR/1.73 m2 Glucose Lactate Calcium Magnesium Total Bilirubin AST ALT Alkaline Phosphatase Troponin I Total Protein Albumin TSH Urine Color Yellow Urine Clarity Cloudy Urine pH 5.5 Ur Specific [place] 1.025 Urine Protein 100 H Urine Ketones Trace H Urine Blood Large H Urine Nitrite Negative Urine Bilirubin Small H Urine Urobilinogen 0.2 Ur Leukocyte Esterase Large H Urine RBC Not Applicable Urine WBC >50 Ur Epithelial Cells Not Applicable Urine Crystals Not Applicable Urine Bacteria Not Applicable Urine Mucus Not Applicable Urine Other Few yeast Ur Culture Indicated? Yes Urine Glucose Negative Last Vital Signs Temp 36.7 C 01/26/18 17:15 Pulse 57 L 01/26/18 20:00 Resp 20 01/26/18 20:07 BP 111/49 L 01/26/18 20:00 Pulse Ox 98 01/26/18 20:07
[2018-01-26] MEDS: Normal Saline 1,000 ML 150 ML IV (23:39)
[2018-01-26 23:47] LABS: Calcium 8.7 mg/dL (8.5-10.1); Chloride 106 mmol/L (98-107); Estimated GFR 11.95 (mL/min/1.73m2); Glucose 162 mg/dL (70-100); Sodium 135 mmol/L (136-145)
[2018-01-26 23:53] LABS: BUN 86 mg/dL (7-18); CREATININE 5.01 mg/dL (0.70-1.30); Potassium 6.9 mmol/L (3.5-5.1)
[2018-01-27] VITALS (89 sets, daily range): BP systolic 83–153; BP diastolic 32–84; PULSE 66–170; RESP 12–27; TEMP 36–37.8; O2SAT 87–99
[2018-01-27] MEDS: risperiDONE 1 MG TAB 3 MG PO
[2018-01-27] MEDS: traZODone 50 MG TAB PO
[2018-01-27] MEDS: Melatonin 3 MG TAB 9 MG PO
[2018-01-27] MEDS: Sodium Bicarbonate 50 MEQ/50 ML SYR IVP (01:28)
[2018-01-27] MEDS: Insulin REGULAR-Human 100 UNITS/ML UNIT SC (01:28)
[2018-01-27] MEDS: Normal Saline Flush 10 ML SYR IVP (01:29)
[2018-01-27] MEDS: Calcium Gluconate 4.65 MEQ/10 ML VIAL 4.65 MG IVP (01:43)
[2018-01-27] MEDS: Dextrose 50%-Water 25 GM/50 ML SYR IVP (01:45)
[2018-01-27] MEDS: Normal Saline 100 ML 50 ML (01:46)
[2018-01-27 03:17] LABS: Potassium 5.4 mmol/L (3.5-5.1)
[2018-01-27] MEDS: Hydrocortisone SOD SUC. 100 MG VIAL 50 MG IVP ×4 (03:39→20:28)
[2018-01-27] MEDS: PIPERACILLIN/TAZO 2.25 GM in Normal Saline 50 ML IVPB ×2 (04:40→19:46)
[2018-01-27] MEDS: Levothyroxine 50 MCG TAB PO (05:54)
[2018-01-27] MEDS: Normal Saline 1,000 ML 150 ML IV ×3 (06:11→22:16)
[2018-01-27 06:47] LABS: Abs Immature Grans 0.06 k/cumm (0.0-0.09); Absolute Basophil Count 0.02 k/cumm (0.0-0.2); Absolute Eosinophil Count 0.79 k/cumm (0.0-0.7); Basophils % 0.2; Eosinophils % 6.5; HCT 29.3 % (40.0-50.0); HGB 9.1 g/dL (13.5-17.5); Immature Grans % 0.5; Lymphocytes % 5.8; Mean Corp. HGB Concentration 31.1 g/dL (32.0-36.0); Mean Corpuscular Volume 70.9 fL (80-95); Mean Platelet Volume 10.1 fL (8.0-11.0); Monocytes % 4.9; Neutrophils % 82.1; Platelet Count 480 x1000/uL (130-400); RBC 4.13 m/cumm (4.50-6.00); RBC Distribution Width 20.7 % (11.8-14.1); White Blood Cell Count 12.16 k/cumm (4.4-10.8)
[2018-01-27 06:57] LABS: ALT 17 U/L (12-78); AST 10 U/L (15-37); Absolute Lymphocyte Count 0.71 k/cumm (1.2-3.4); Absolute Neutrophil Count 9.98 k/cumm (1.2-6.7); Albumin 2.1 g/dL (3.4-5.0); Alkaline Phosphatase 316 U/L (46-116); Anion Gap 14.5 mmol/L (3-11); BUN 79 mg/dL (7-18); Bilirubin, Total 0.3 mg/dL (0.2-1.0); CO2 18.5 mmol/L (21.0-32.0); Calcium 8.9 mg/dL (8.5-10.1); Chloride 105 mmol/L (98-107); Estimated GFR 12.32 (mL/min/1.73m2); Glucose 243 mg/dL (70-100); Potassium 5.3 mmol/L (3.5-5.1); Sodium 138 mmol/L (136-145); Total Protein 7.4 g/dL (6.4-8.2)
--- NOTE | 2018-01-27 07:00 | DI.US_ITS ---
SYMPTOM/DIAGNOSIS: ACUTE KIDNEY INJURY, COMPLICATED UTI RENAL ULTRASOUND: Routine examination. The study was limited due to patient pain and decreased cooperation. The right kidney measures 11.3 cm long. No renal mass, calculus or obstruction seen. There is normal blood flow to the right kidney. The left kidney measures 9.6 cm long. No renal mass, calculus or obstruction seen. There is blood flow to the left kidney. The pre-void urinary bladder volume was 70 cc. The patient was unable to void. The ureteral jets were not visualized. No intraluminal masses were present. Bladder wall is within normal limits. Prostatic volume was 31 cc. IMPRESSION: Somewhat limited study due to decreased patient cooperation. 2. No evidence of hydronephrosis, renal mass or nephrolithiasis.
[2018-01-27 07:09] LABS: CREATININE 4.88 mg/dL (0.70-1.30)
[2018-01-27] MEDS: Multivitamin w/Minerals TAB 1 TAB PO (07:59)
[2018-01-27] MEDS: Carvedilol 6.25 MG TAB PO ×2 (08:00→19:45)
[2018-01-27] MEDS: Cyanocobalamin 500 MCG TAB 1000 MCG PO (08:00)
[2018-01-27] MEDS: Aspirin E.C. 81 MG TABEC PO ×2 (08:00→19:45)
[2018-01-27] MEDS: Omega-3 Fatty Acids 1000 MG CAP PO (08:00)
[2018-01-27] MEDS: Sertraline 25 MG TAB PO (08:01)
[2018-01-27] MEDS: Gabapentin 800 MG TAB PO (08:01)
[2018-01-27] MEDS: Folic Acid 1 MG TAB PO (08:01)
[2018-01-27] MEDS: Heparin 5,000 UNITS/ML VIAL 5000 UNITS SC ×2 (08:01→20:16)
[2018-01-27] MEDS: Ferrous Sulfate 325 MG TAB PO ×2 (08:01→19:46)
[2018-01-27] MEDS: Omeprazole 20 MG CAPCR PO (08:01)
--- NOTE | 2018-01-27 09:15 | PHARADMIT ---
Addendum entered by Rosa Beltran 02/09/18 15:27: Pharmacy Note Subjective Objective BP-185/92 HR-56 other VS okay SCr-2.28(up) FSBG-276 Assessment vanco trough came back at 20.3, kinetics suggested 750 Q24 hours, so changed dosing to start back at 1600 (previous dose given at 1600 yesterday) hydralazine scheduled TID started yesterday Plan possible discharge back to the [facility] tomorrow Original Note: Addendum entered by Rosa Beltran 02/08/18 09:37: Pharmacy Note Subjective Objective BP-160/83 HR-50 other VS okay no labs Assessment waiting to do vanco trough tomorrow @1300 so pharmacy can review and adjust dose prior to possible discharge (as previous dose given late, it will put him closer to steady state, will allow us to analyze using kinetics vs. system overnight pharmacy uses, and depending on results will hopefully keep vanco dosing during the day which is preferred by the [facility]). nursing care partner aware of this plan. hydroxyzine changed from 12.5 mg Q6H scheduled to 25 mg Q6H PRN yesterday insulin glargine dose increased from 30 to 40 units daily IV methylprednisolone discontinued and PO prednisone dose increased terazosin increased from 2 mg to 4 mg BID Plan trough and SCr tomorrow @1300 possible discharge back to [facility] (they would prefer Q24H dosing and to have the dose be scheduled during the day) Original Note: Addendum entered by Rosa Beltran 02/07/18 13:56: Pharmacy Note Subjective [facility] would like the pt to be on Q24h vanco dosing to have dosing during the day if possible Objective BP-171/79 HR-52 other VS okay SCr-1.99(down) h/h-9.2/29.5(up) BG-341 Assessment vanco continues no med changes so far today Plan will get trough tomorrow or Friday possible discharge back to [facility] friday Original Note: Addendum entered by Isaura Cifuentes 02/06/18 12:10: Pharmacy Note Subjective Dr Ashford saw today, may be discharged back to [facility] Friday Objective bp 184/87(MDA) Assessment new orders for blood pressure; stopped Md vivian trying a beta lia and alpha lia and will adjust according to response of BP and HR, new wound care orders for toe wound(may need surgery), new order for hypoallergenic bedding may facilitate stopping hydroxyzine order Plan evaluate vanco trough this afternoon making sure trough is adequate. pt will be having 4-6 weeks of vancomycin therapy Original Note: Addendum entered by Guido Medina III 02/05/18 16:52: Pharmacy Note Subjective MD noted in meeting that patient looked bad . Unsure what the next step may be. Will check TSH. OT notes that patient is unable to perform ADLs Objective VS-OK SCr-1.92 FSBS-372 Lytes, H&H,Plts-OK WBC-6.98 (down) C-reactive protein-6.94) Assessment VANCOMYCIN TROUGH TOMORROW AT 1500. Plan No new MD note today. Original Note: Addendum entered by Isaura Cifuentes 02/04/18 12:31: Pharmacy Note Subjective KELLEE cancelled, Objective SCr down to 2.0, BC negative 96 hours, no signs of infective endocarditis, H/H up, FS 161 Assessment vanco continues day 7, pip/tazo day 9 Plan order vanco trough when needed, continue to watch renal function Original Note: Addendum entered by Rosa Beltran 02/03/18 16:56: Pharmacy Note Subjective pt drowsy today per CM report Objective BP-184/80 other VS okay mag-1.5 Cl-110 SCr-2.13(down) h/h-7.3/25.0 wbc-12.40 Assessment vanco continues (day 8) lisinopril still on hold Plan order vanco trough when needed, continue to watch renal function Original Note: Addendum entered by Rosa Beltran 02/02/18 17:01: Pharmacy Note Subjective podiatry consult ordered Objective HR-58, other VS okay SCr-2.14(up) WBC-13.48(up) h/h-7.2/24.6(down) Assessment vanco trough came back high at 20.8, previous dose given an hour late and renal function decreased slight so held dose for 6 hours before restarting at 1 gram Q24H, will target a trough of 18.1. continue to watch renal function as dose may need to be adjusted if it continues to worsen zosyn discontinued Plan continue to watch VS, labs and for med changes Original Note: Addendum entered by Guido Medina III 02/01/18 14:44: Pharmacy Note Subjective Renal function continues to improve. Vanco & Zosyn doses adjusted Objective VS-OK SCR-1.62 Lytes, WBC-13.63 H&H-7.8/25.9 Plts-510 Assessment Vancomycin tough or tomorrow at 9AM, Zosyn now 3.375mg continues. Atarax ordered for itching. Plan Cardiology and Podiarty consult tomorrow. Needs KELLEE. Watch for Vancomycin, Zosyn dose adjustments as renal function goes. Original Note: Addendum entered by Guido Medina III 01/31/18 13:16: Pharmacy Note Subjective Patients poor hygiene and continual scratching and itching my contribute to infection, source may be for foot. Micro shows MRSA & Corynebacterium in blood. PT worked with patient today. Objective VS-OK Temp-38C BP-193/93 Lyyes, Plts-OK SCr-1.62 WBC- 13.63 H&H- 7.8/25.9 Wgt-111.2kg Last BM 01/29 Assessment MRSA-sens to Vancomycin, Coryne not determined yet. Vancomycin & Zosyn continue. Yeast found in urine. Plan KELLEE needed, probably at [facility] Podiatry consult for Friday. no new MD note yet. follow Vanco trough, SCr Original Note: Addendum entered by Rosa Beltran 01/30/18 17:21: Pharmacy Note Subjective looks better per morning report Objective BP-188/88 Tmax-37.8 Cl-113 SCr-1.79(down) WBC-13.11(up) h/h-7.7/25.3(down) Assessment vanco trough came back at 15.9, dose continued zosyn also continues risperidone dose increased, hydrocortisone changed to prednisone, insulin glargine dose increased Plan continue to watch VS, labs and for med changes Original Note: Addendum entered by Guido Medina III 01/28/18 10:58: Pharmacy Note Subjective JESUS, Right Leg cellulitis and Urosepsis Objective VS-OK BP- 167/72 K+4.7 Mag-1.5 SCr-3.58 WBC-12.93 H&H- 8.7/27.9 Plts-547 Wgt-100 kg No BM yet Assessment Blood cultures-MRSA, Urine-yeast. Vancomycin, Zosyn continue. dc'd or reduced home medications, adjusted for poor renal function, Est.CrCl~ 25 mL/min MagSO4 2gm IV x1 Plan Vancomycin trough after ~ 120hrs, Watch SCr, Wgt, Mag, (K+ OK KXL8 dc'd) Patient will return to [facility] once sepsis clears. Original Note: Admission Pharmacy Clinical Review HYPOTENSION, DEHYRATION, JESUS on CKD, UTI Code Status Full Code Current Weight Wgt-107.7 kg Renally Cleared and Narrow Therapeutic Index Meds CrCl~ 18 mL/min Meds-OK (adjusted for JESUS) QTc Value / Action Taken QTc-411 (10/27/17) na BP Control, Fever BP- 144/65 Tmax- 37.1C Electrolytes reviewed Na- 138 K+5.3 Mag-1.6 DVT Prophylaxis Heparin SC, ASA Opiate Usage / Scheduled Bowel Regimen Ordered No Yes Plt/SCr for Heparin / Enoxaparin Plts-480 SCr-4.88 INR for Warfarin INR-1.2 H/H stable, WBC/Bands H&H- 9.1/29.3 WBC- 12.16 Antibiotic appropriateness Vancomycin.Zosyn Cultures and Sensitivities [id number], Blood- Gram+ Cocci, Urine-pending Surgical ABX d/c within 24 hr na DM control / Insulin Dosing BG- 243 Heart Failure (Check EF%) (ARYA's, B-Block, Diuretics) Norvasc, Catapres Coreg IV to PO Switch No Home Meds Reviewed Yes Home Meds Not Ordered Lasix, Lisinopril, Loperamide< Humira, Vit-C, , Comments Due to poor renal function Gabapentin dc'd Venlafaxine Trazodone, & Risperidone decreased
[2018-01-27] MEDS: Insulin Aspart 300 UNITS/3 ML PEN SC ×3 (09:25→17:24)
[2018-01-27] MEDS: Ciprofloxacin 0.3% 2.5 ML BTL OU ×8 (09:31→22:17)
[2018-01-27] MEDS: carBAMazepine 100 MG CHEW PO ×3 (09:37→19:45)
[2018-01-27] MEDS: VANCOMYCIN 1,000 MG in Normal Saline 250 ML 166.6666 MG IVPB (09:41)
[2018-01-27] MEDS: Insulin Glargine 300 UNITS/3 ML PEN 10 UNITS SC (09:45)
[2018-01-27] MEDS: Venlafaxine 75 MG TAB 37.5 MG PO ×3 (09:46→19:47)
[2018-01-27 10:26] LABS: Creatine Kinase 17 U/L (39-308)
[2018-01-27] MEDS: MAGNESIUM SULFATE 1 GM/100 ML BAG IVPB (10:52)
--- NOTE | 2018-01-27 12:25 | MERGE_ITS ---
*[facility]* *[facility]* [address] [place] [address] Date of study: 01/27/2018 Transthoracic Echocardiography M-mode, complete 2D, complete spectral Doppler, and color Doppler *STUDY CONCLUSIONS* Impressions: There are no typical features of vegetative endocarditis. Summary: 1. Left ventricle: The cavity size was normal. Wall thickness was increased in a pattern of moderate LVH. Systolic function was normal. The estimated ejection fraction was 55-60%. Wall motion was normal; there were no regional wall motion abnormalities. 2. Right ventricle: The cavity size was normal. Wall thickness was increased. Systolic function was normal. *PATIENT PRESENTATION* Height: 185.4cm ((73in) ) S/D Pressure: 144 / 65 Weight: 107.5kg ((236.5lb) ) BSA: 2.38m^2 Test start time: 12:35 PM. Test stop time: 01:20 PM. 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 This study was interpreted by [facility]. Pertinent images and digital data are archived for permanent storage and are available for subsequent review. Comparison was made to the study of 10/23/2015. Study status: Routine. Transthoracic echocardiography. M-mode, complete 2D, complete spectral Doppler, and color Doppler. A Transthoracic Echocardiogram was performed. Scanning was performed from the parasternal, apical, subcostal, and suprasternal notch acoustic windows. Images were obtained using an [id number] cardiac ultrasound machine. Image quality was adequate. Study completion: The patient tolerated the procedure well. There were no complications. History: PMH: GPC bacteremia. *CARDIAC ANATOMY* Left ventricle: The cavity size was normal. Wall thickness was increased in a pattern of moderate LVH. Systolic function was normal. The estimated ejection fraction was 55-60%. Wall motion was normal; there were no regional wall motion abnormalities. Diastolic parameters were normal. Aortic valve: Probably trileaflet; normal thickness leaflets. Mobility was not restricted. Doppler: Transvalvular velocity was within the normal range. There was no stenosis. There was no significant regurgitation. VTI ratio of LVOT to aortic valve: 0.6. Valve area (VTI): 2.1cm^2. Indexed valve area (VTI): 0.9cm^2/m^2. Peak velocity ratio of LVOT to aortic valve: 0.65. Valve area (Vmax): 2.3cm^2. Indexed valve area (Vmax): 1cm^2/m^2. Mean velocity ratio of LVOT to aortic valve: 0.64. Valve area (Vmean): 2.3cm^2. Indexed valve area (Vmean): 0.9cm^2/m^2. Mean gradient (S): 10.1mm Hg. Peak gradient (S): 17.1mm Hg. Aorta: Aortic root: The aortic root was normal in size. Ascending aorta: The ascending aorta was normal in size. Mitral valve: Structurally normal valve. Mobility was not restricted. Doppler: Transvalvular velocity was within the normal range. There was no evidence for stenosis. There was no significant regurgitation. Valve area by pressure half-time: 2.3cm^2. Indexed valve area by pressure half-time: 0.9cm^2/m^2. Peak gradient (D): 2.5mm Hg. Left atrium: The atrium was normal in size. Right ventricle: The cavity size was normal. Wall thickness was increased. Systolic function was normal. Pulmonic valve: The pulmonary valve appears to be grossly normal. Doppler: Transvalvular velocity was within the normal range. There was no evidence for stenosis. There was no significant regurgitation. Tricuspid valve: Structurally normal valve. Doppler: Transvalvular velocity was within the normal range. There was no evidence for stenosis. There was trivial regurgitation. Pulmonary artery: Systolic pressure could not be accurately estimated. Right atrium: The atrium was normal in size. Pericardium: There was no pericardial effusion. Systemic veins: Inferior vena cava: Well visualized. The vessel was patent and normal in size. The respirophasic diameter changes were in the normal range (greater than or equal to 50%). Baseline ECG: Normal sinus rhythm. Measurements Left ventricle Value Reference LV ID, ED, PLAX 4.8 cm 3.5 - 6.0 LV ID, ES, PLAX 3.2 cm 2.1 - 4.0 LV PW thickness, ED, PLAX 1.4 cm LV end-diastolic volume, 1-p A2C 86 ml LV ejection fraction, 1-p A2C 66 % LV end-diastolic volume, 1-p A4C 111 ml LV ejection fraction, 1-p A4C 53 % LV e', lateral 0.108 m/sec LV E/e', lateral 7 LV e', medial 0.093 m/sec LV E/e', medial 8 LV e', average 0.1 m/sec LV E/e', average 8 Ventricular septum Value Reference IVS thickness, ED, PLAX 1.5 cm LVOT Value Reference LVOT ID, A-P 2.1 cm LVOT area 3.5 cm^2 LVOT peak velocity, S 1.34 m/sec LVOT mean velocity, S 0.98 m/sec LVOT VTI, S 21.1 cm LVOT peak gradient, S 7.2 mm Hg LVOT mean gradient, S 4.4 mm Hg Stroke volume (SV), LVOT DP 74 ml Stroke index (SV/bsa), LVOT DP 31 ml/m^2 Aortic valve Value Reference Aortic valve peak velocity, S 2.1 m/sec Aortic valve mean velocity, S 1.53 m/sec Aortic valve VTI, S 35.0 cm Aortic mean gradient, S 10.1 mm Hg Aortic peak gradient, S 17.1 mm Hg VTI ratio, LVOT/AV 0.6 Aortic valve area, VTI 2.1 cm^2 Velocity ratio, peak, LVOT/AV 0.65 Aortic valve area, peak velocity 2.3 cm^2 Velocity ratio, mean, LVOT/AV 0.64 Aortic valve area, mean velocity 2.3 cm^2 Aortic valve area/bsa, mean velocity 0.9 cm^2/m^2 Aorta Value Reference Aortic root ID, ED 3.5 cm Ascending aorta ID, A-P, S 3.3 cm Left atrium Value Reference LA ID, A-P, ES 2.8 cm LA ID/bsa, A-P 1.2 cm/m^2 <=2.2 LA area, ES, A4C 14.5 cm^2 8.8 - 23.4 LA area, ES, A2C 19 cm^2 LA volume/bsa, ES, 1-p A4C 14 ml/m^2 LA volume, ES, 2-p 41 ml LA volume/bsa, ES, 2-p 17 ml/m^2 LA/aortic root ratio 0.79 Mitral valve Value Reference Mitral E-wave peak velocity 0.79 m/sec Mitral A-wave peak velocity 0.92 m/sec Mitral deceleration time (H) 336 ms 150 - 230 Mitral pressure half-time 97 ms Mitral peak gradient, D 2.5 mm Hg Mitral E/A ratio, peak 0.86 Mitral valve area, PHT, DP 2.3 cm^2 Tricuspid valve Value Reference Tricuspid regurg peak velocity 3.2 m/sec Tricuspid peak RV-RA gradient 42.1 mm Hg Right atrium Value Reference RA area, ES, A4C 12.8 cm^2 8.3 - 19.5 Legend: (L) and (H) jamie values outside specified reference range. I have personally reviewed the images and have reviewed and edited the reported findings. Electronically signed by Serg Bill 01/27/2018 15:24
--- NOTE | 2018-01-27 12:40 | PGE_ITS ---
Date of Service Date of service: 01/27/18 Time of Service: 12:35 Assessment and Plan (1) Sepsis: Current visit: Yes Status: Acute due to UTI, present on admission. 1 blood culture is positive for GPC's in clusters (likely staph) - vancomycin added, will be dosed by levels. Continue zosyn. Blood cultures will be repeated tomorrow am. Checking echo. Continue stress dose hydrocortisone. Keep in ICU. (2) Complicated UTI (urinary tract infection): Current visit: Yes Status: Acute At this time, there is no obvious kidney stone or hydronephrosis. Continue vancomycin/zosyn. Follow up urine culture. Has a ruiz in - no urinary retention noted on insertion. (3) Adrenal insufficiency: Current visit: No Status: Chronic Acute on chronic. Continue stress dose steroids. (4) Toxic metabolic encephalopathy: Current visit: No Status: Acute I have reviewed patient's medications with pharmacy. Gabapentin was d/c'ed ; remainder of medications were renally dosed to ensure they are not contributing to encephalopathy. It is unlikely the patient has meningitis as there is no sign of neck rigidity, but will monitor mental status closely. (5) Acute on chronic kidney failure: Current visit: Yes Status: Acute Continue IVF and treat underlying infection. Monitor potassium. Monitor strict I/O; has a ruiz - no evidence of urinary retention. (6) Hyperkalemia: Current visit: Yes Status: Acute Improving. Continue to monitor on tele in the ICU. Finish the course of kayexcellate. 2 pm BMP pending. (7) Diabetic foot ulcer: Current visit: Yes Status: Chronic Podiatry consult placed. Continue vancomycin/zosyn for now. (8) Diabetes mellitus type 2, controlled: Current visit: No Status: Chronic I have lowered the patient's basal insulin and d/c'ed scheduled prandial insulin. Continue SSI. Patient is not consistently taking PO at this time due to his mental status. (9) Dehydration: Current visit: Yes Status: Acute Continue IVF (10) Conjunctivitis: Current visit: Yes Status: Acute Continue ciprofloxacin eye drops (11) Hypothyroidism: Current visit: No Status: Chronic Continue synthroid (12) Rheumatoid arthritis: Current visit: No Status: Chronic Continue stress dose steroids (13) Crohns disease: Current visit: No Status: Chronic On stress dose steroids. Is having a lot of liquid ostomy output - which we expect from kayexcellate. Doubt a flare at this time. C. Diff negative. (14) Ambulatory dysfunction: Current visit: Yes Status: Acute PT/OT consult (15) Discharge planning issues: Current visit: Yes Status: Acute From longterm and is expected to return there on discharge. However, may have to complete antibiotics at [facility] (may have to be made swing-bed status, once better). (16) DVT prophylaxis: Current visit: No Status: Acute Continue heparin 5,000 iu SC BID Subjective Interval history since last seen: The patient has been lethargic today, though arousable. He wakes up briefly when I came to examine him, but goes right back to sleep, not answering my questions. Exam Narrative Exam Narrative: General: Obese middle-aged male, lethargic, laying flat in bed, snoring Neurological: lethargic, arousable, no obvious focal deficits, though this is difficult to fully evaluate due to patient's mental status Psychiatric: lethargic/difficult to evaluate Skin: R foot dressed - c/d/i; L great toe with a scab, does not appear infected HEENT: EOMI, MMM, very poor dentition, no JVD Cardiovascular: RRR, +systolic ejection murmur Lungs: CTAB/diminished Gastrointestinal: abdomen soft, nontender, nondistended Genitourinary: has a ruiz (25 cc of clear yellow urine in bag) Extremities: wearing BO stockings; R foot dressed as above; L foot with L great toe abrasion; 1+ pedal pulse LLE; no clubbing/cyanosis, trace edema Objective Objective Clinical Data: Abnormal lab results 01/26/18 01/26/18 01/26/18 Range/Units 17:28 17:28 17:28 WBC 17.58 H (4.4-10.8) k/cumm RBC 4.26 L (4.50-6.00) m/cumm Hgb 9.4 L (13.5-17.5) g/dL Hct 30.0 L (40.0-50.0) % MCV 70.4 L (80-95) fL MCH 22.1 L (27.0-33.0) pg MCHC 31.3 L (32.0-36.0) g/dL RDW 20.7 H (11.8-14.1) % Plt Count 539 H (130-400) x1000/uL Absolute Neutrophils 13.17 H (1.2-6.7) k/cumm Absolute Lymphocytes (1.2-3.4) k/cumm Absolute Monocytes 1.16 H (0.11-0.7) k/cumm Absolute Eosinophils 1.69 H (0.0-0.7) k/cumm PT 11.5 H (9.3-10.8) sec Sodium 134 L (136-145) mmol/L Potassium 6.8 H* (3.5-5.1) mmol/L Carbon Dioxide 16.7 L (21.0-32.0) mmol/L Anion Gap 14.3 H (3-11) mmol/L BUN 87 H* (7-18) mg/dL Creatinine 5.24 H* (0.70-1.30) mg/dL Glucose 114 H (70-100) mg/dL Magnesium 1.6 L (1.8-2.4) mg/dL AST 11 L (15-37) U/L Alkaline Phosphatase 341 H (46-116) U/L Creatine Kinase (39-308) U/L Albumin 2.2 L (3.4-5.0) g/dL Urine Protein (Negative) mg/dL Urine Ketones (Negative) mg/dL Urine Blood (Negative) Urine Bilirubin (Negative) Ur Leukocyte Esterase (Negative) 01/26/18 01/26/18 01/27/18 Range/Units 17:50 23:30 03:05 WBC (4.4-10.8) k/cumm RBC (4.50-6.00) m/cumm Hgb (13.5-17.5) g/dL Hct (40.0-50.0) % MCV (80-95) fL MCH (27.0-33.0) pg MCHC (32.0-36.0) g/dL RDW (11.8-14.1) % Plt Count (130-400) x1000/uL Absolute Neutrophils (1.2-6.7) k/cumm Absolute Lymphocytes (1.2-3.4) k/cumm Absolute Monocytes (0.11-0.7) k/cumm Absolute Eosinophils (0.0-0.7) k/cumm PT (9.3-10.8) sec Sodium 135 L (136-145) mmol/L Potassium 6.9 H* 5.4 H (3.5-5.1) mmol/L Carbon Dioxide 16.0 L (21.0-32.0) mmol/L Anion Gap 13.0 H (3-11) mmol/L BUN 86 H* (7-18) mg/dL Creatinine 5.01 H* (0.70-1.30) mg/dL Glucose 162 H (70-100) mg/dL Magnesium (1.8-2.4) mg/dL AST (15-37) U/L Alkaline Phosphatase (46-116) U/L Creatine Kinase (39-308) U/L Albumin (3.4-5.0) g/dL Urine Protein 100 H (Negative) mg/dL Urine Ketones Trace H (Negative) mg/dL Urine Blood Large H (Negative) Urine Bilirubin Small H (Negative) Ur Leukocyte Esterase Large H (Negative) 01/27/18 01/27/18 Range/Units 06:10 06:10 WBC 12.16 H D (4.4-10.8) k/cumm RBC 4.13 L (4.50-6.00) m/cumm Hgb 9.1 L (13.5-17.5) g/dL Hct 29.3 L (40.0-50.0) % MCV 70.9 L (80-95) fL MCH 22.0 L (27.0-33.0) pg MCHC 31.1 L (32.0-36.0) g/dL RDW 20.7 H (11.8-14.1) % Plt Count 480 H (130-400) x1000/uL Absolute Neutrophils 9.98 H (1.2-6.7) k/cumm Absolute Lymphocytes 0.71 L (1.2-3.4) k/cumm Absolute Monocytes (0.11-0.7) k/cumm Absolute Eosinophils 0.79 H (0.0-0.7) k/cumm PT (9.3-10.8) sec Sodium (136-145) mmol/L Potassium 5.3 H (3.5-5.1) mmol/L Carbon Dioxide 18.5 L (21.0-32.0) mmol/L Anion Gap 14.5 H (3-11) mmol/L BUN 79 H (7-18) mg/dL Creatinine 4.88 H* (0.70-1.30) mg/dL Glucose 243 H D (70-100) mg/dL Magnesium (1.8-2.4) mg/dL AST 10 L (15-37) U/L Alkaline Phosphatase 316 H (46-116) U/L Creatine Kinase 17 L (39-308) U/L Albumin 2.1 L (3.4-5.0) g/dL Urine Protein (Negative) mg/dL Urine Ketones (Negative) mg/dL Urine Blood (Negative) Urine Bilirubin (Negative) Ur Leukocyte Esterase (Negative) Vital Signs Temperature 37.8 C H 01/27/18 09:12 Temperature Source Temporal Artery Scan 01/27/18 09:12 Pulse 81 01/27/18 11:00 Pulse 80 01/27/18 11:10 Respiratory Rate 20 01/27/18 11:10 Respiratory Effort 01/27/18 09:12 Respiratory Depth Normal 01/27/18 09:12 Respiratory Pattern Normal 01/27/18 09:12 Blood Pressure 125/64 01/27/18 11:00 Blood Pressure Mean 78 01/27/18 11:00 Blood Pressure Position Supine 01/26/18 17:15 Pulse Oximetry 93 L 01/27/18 11:10 Oxygen Delivery Method Room Air 01/27/18 09:12 Oxygen Flow Rate 0 01/27/18 09:12 Pain Level 0 01/27/18 03:22 Intake & Output 01/26/18 01/27/18 01/27/18 23:59 11:59 23:59 Intake Total 1675 / 1675 1560 / 1560 Output Total 4225 / 4225 Balance 1675 / 1675 -2665 / -2665 Weight 107.5 kg 107.7 kg Intake: IV 1300 / 1300 1080 / 1080 Oral 480 / 480 Injectate 375 / 375 Right Lateral Abdomen 375 / 375 Output: Drainage 200 / 200 Right Lateral Abdomen 200 / 200 Stool 4025 / 4025 Other: Urine Color Yellow Straw Urine Appearance Clear Comment pt has not voided during this shift. pt incontinent of urine. Laboratory Results WBC 12.16 k/cumm (4.4-10.8) H D 01/27/18 06:10 RBC 4.13 m/cumm (4.50-6.00) L 01/27/18 06:10 Hgb 9.1 g/dL (13.5-17.5) L 01/27/18 06:10 Hct 29.3 % (40.0-50.0) L 01/27/18 06:10 MCV 70.9 fL (80-95) L 01/27/18 06:10 MCH 22.0 pg (27.0-33.0) L 01/27/18 06:10 MCHC 31.1 g/dL (32.0-36.0) L 01/27/18 06:10 RDW 20.7 % (11.8-14.1) H 01/27/18 06:10 Plt Count 480 x1000/uL (130-400) H 01/27/18 06:10 MPV 10.1 fL (8.0-11.0) 01/27/18 06:10 Immature Gran % 0.5 01/27/18 06:10 Neutrophils % 82.1 01/27/18 06:10 Lymphocytes % 5.8 01/27/18 06:10 Monocytes % 4.9 01/27/18 06:10 Eosinophils % 6.5 01/27/18 06:10 Basophils % 0.2 01/27/18 06:10 Absolute Neutrophils 9.98 k/cumm (1.2-6.7) H 01/27/18 06:10 Absolute Lymphocytes 0.71 k/cumm (1.2-3.4) L 01/27/18 06:10 Absolute Monocytes 0.60 k/cumm (0.11-0.7) 01/27/18 06:10 Absolute Eosinophils 0.79 k/cumm (0.0-0.7) H 01/27/18 06:10 Absolute Basophils 0.02 k/cumm (0.0-0.2) 01/27/18 06:10 Differential Comment Rbc morph reviewed 01/26/18 17:28 RBC Morphology See below 01/26/18 17:28 Anisocytosis 3+ 01/26/18 17:28 Microcytosis 3+ 01/26/18 17:28 PT 11.5 sec (9.3-10.8) H 01/26/18 17:28 INR 1.2 (1.0-3.5) 01/26/18 17:28 APTT 26.2 sec (21.0-31.4) 01/26/18 17:28 Sodium 138 mmol/L (136-145) 01/27/18 06:10 Potassium 5.3 mmol/L (3.5-5.1) H 01/27/18 06:10 Chloride 105 mmol/L (98-107) 01/27/18 06:10 Carbon Dioxide 18.5 mmol/L (21.0-32.0) L 01/27/18 06:10 Anion Gap 14.5 mmol/L (3-11) H 01/27/18 06:10 BUN 79 mg/dL (7-18) H 01/27/18 06:10 Creatinine 4.88 mg/dL (0.70-1.30) H* 01/27/18 06:10 Estimated GFR/1.73 m2 12.32 (mL/min/1.73m2) 01/27/18 06:10 Glucose 243 mg/dL (70-100) H D 01/27/18 06:10 Lactate 0.8 mmol/L (0.6-1.4) 01/26/18 17:28 Calcium 8.9 mg/dL (8.5-10.1) 01/27/18 06:10 Magnesium 1.6 mg/dL (1.8-2.4) L 01/26/18 17:28 Total Bilirubin 0.3 mg/dL (0.2-1.0) 01/27/18 06:10 AST 10 U/L (15-37) L 01/27/18 06:10 ALT 17 U/L (12-78) 01/27/18 06:10 Alkaline Phosphatase 316 U/L (46-116) H 01/27/18 06:10 Creatine Kinase 17 U/L (39-308) L 01/27/18 06:10 Troponin I < 0.02 ng/mL (0.00-0.06) 01/26/18 17:28 Total Protein 7.4 g/dL (6.4-8.2) 01/27/18 06:10 Albumin 2.1 g/dL (3.4-5.0) L 01/27/18 06:10 TSH 0.54 uIU/mL (0.358-3.74) 01/26/18 17:15 Urine Color Yellow (Yellow) 01/26/18 17:50 Urine Clarity Cloudy 01/26/18 17:50 Urine pH 5.5 (5-8) 01/26/18 17:50 Ur Specific [place] 1.025 (1.005-1.025) 01/26/18 17:50 Urine Protein 100 mg/dL (Negative) H 01/26/18 17:50 Urine Ketones Trace mg/dL (Negative) H 01/26/18 17:50 Urine Blood Large (Negative) H 01/26/18 17:50 Urine Nitrite Negative (Negative) 01/26/18 17:50 Urine Bilirubin Small (Negative) H 01/26/18 17:50 Urine Urobilinogen 0.2 EU/dL (Up TO 0.2) 01/26/18 17:50 Ur Leukocyte Esterase Large (Negative) H 01/26/18 17:50 Urine RBC Not Applicable 01/26/18 17:50 Urine WBC >50 HPF (0-5) 01/26/18 17:50 Ur Epithelial Cells Not Applicable 01/26/18 17:50 Urine Crystals Not Applicable 01/26/18 17:50 Urine Bacteria Not Applicable 01/26/18 17:50 Urine Mucus Not Applicable 01/26/18 17:50 Urine Other Few yeast (Negative) 01/26/18 17:50 Ur Culture Indicated? Yes 01/26/18 17:50 Urine Glucose Negative mg/dL (Negative) 01/26/18 17:50 Blood cx x 2 01/26/18: 1 bottle is growing GPC's in clusters, remainder are still pending/not reported. Urine C&S 01/26/18: pending C. Diff negative MRSA screen pending US kidneys: IMPRESSION: Somewhat limited study due to decreased patient cooperation. 2. No evidence of hydronephrosis, renal mass or nephrolithiasis.
--- NOTE | 2018-01-27 13:36 | PDOC.CMIN ---
Care Management Initial Assess REASON FOR HOSPITALIZATION:: Hypotension, dehydration, JESUS on CKD, UTI PAST MEDICAL HISTORY/PAST SURGICAL HISTORY:: CHF, Anemia, Anxiety, Back Pain, Bipolar Disorder, CAD, Cardiopulmonary arrest with successful resuscitation, cholelithiasis, anxiety, insomnia, chronic pain, CKD, Crohn's Disease, DM type 2 with diabetic neuropathy, diabetic foot ulcer, dyslipidemia, heme positive stool, hemorrhagic cystitis, hypertension, hypoandrogenism, hypothyroidism, impaired mobility and ADLs, Obesity, Pedal edema, Osteoarthritis of both knees, poor self care, poorly controlled DM2 with circulatory disorder, RA, TKA, Fracture ORIF R distal humerus fracture. PREVIOUS FUNCTIONAL STATUS/SOCIAL/FAMILY SUPPORTS:: Brendan is a halfway resident at the [facility] facility in [place] and requires assistance with all ADLs. Brendan has a sister, Lian Hardy (P#[phone])who lives in [facility] and though they have limited contact via phone every couple of weeks-she is his only identified family support and responded in person upon Brendan's last admission when he coded and required CPR and was later air lifted to [facility] via DART. Brendan enjoys reading and watching TV. On last admission Brendan discussed wanting to explore other options for housing. CURRENT FUNCTIONAL STATUS:: Brendan is sleeping soundly and not easily arousable at this time, he is quite ill and will have a full medical work up. ADVANCE DIRECTIVES:: [facility] on file. Has patient been provided with information about the portal?: Yes Did the patient sign up for the portal?: No CODE STATUS:: Full Code INSURANCE COVERAGE / FINANCIAL ISSUES:: Medicaid. Medicare CURRENT HOME/COMMUNITY SERVICES/EQUIPMENT:: Brendan is a resident at the [facility]-the facility manages his service and equipment needs. PRIMARY CARE PHYSICIAN:: Anne Horowitz DO: Dairy Manager at the [facility] POTENTIAL DISCHARGE NEEDS:: Coordinated return to [facility]. CM spoke with Isela of the [facility] who requested updates when available. PATIENT/FAMILY EDUCATION NEEDS:: Review of instructions. ANTICIPATED BARRIERS TO DISCHARGE:: IV ABX course-dependent on duration and frequency-patient re-admitted with recurrent sepsis TRANSPORTATION:: W/C van PLAN:: Brendan will remain in the ICU at this time; closely monitored. CM will continue to monitor clinical progress and support discharge planning considerations.
--- NOTE | 2018-01-27 14:19 | INITIAL_ITS ---
Care Management Initial Assess REASON FOR HOSPITALIZATION:: Hypotension, dehydration, JESUS on CKD, UTI PAST MEDICAL HISTORY/PAST SURGICAL HISTORY:: CHF, Anemia, Anxiety, Back Pain, Bipolar Disorder, CAD, Cardiopulmonary arrest with successful resuscitation, cholelithiasis, anxiety, insomnia, chronic pain, CKD, Crohn's Disease, DM type 2 with diabetic neuropathy, diabetic foot ulcer, dyslipidemia, heme positive stool, hemorrhagic cystitis, hypertension, hypoandrogenism, hypothyroidism, impaired mobility and ADLs, Obesity, Pedal edema, Osteoarthritis of both knees, poor self care, poorly controlled DM2 with circulatory disorder, RA, TKA, Fracture ORIF R distal humerus fracture. PREVIOUS FUNCTIONAL STATUS/SOCIAL/FAMILY SUPPORTS:: Brendan is a intermediate resident at the [facility] facility in [place] and requires assistance with all ADLs. Brendan has a sister, Lian Hardy (P#[phone])who lives in [facility] and though they have limited contact via phone every couple of weeks-she is his only identified family support and responded in person upon Brendan's last admission when he coded and required CPR and was later air lifted to [facility] via DART. Brendan enjoys reading and watching TV. On last admission Brendan discussed wanting to explore other options for housing. CURRENT FUNCTIONAL STATUS:: Brendan is sleeping soundly and not easily arousable at this time, he is quite ill and will have a full medical work up. ADVANCE DIRECTIVES:: [facility] on file. Has patient been provided with information about the portal?: Yes Did the patient sign up for the portal?: No CODE STATUS:: Full Code INSURANCE COVERAGE / FINANCIAL ISSUES:: Medicaid. Medicare CURRENT HOME/COMMUNITY SERVICES/EQUIPMENT:: Brendan is a resident at the [facility]-the facility manages his service and equipment needs. PRIMARY CARE PHYSICIAN:: Anne Horowitz DO: Education Professional at the [facility] POTENTIAL DISCHARGE NEEDS:: Coordinated return to [facility]. CM spoke with Isela of the [facility] who requested updates when available. PATIENT/FAMILY EDUCATION NEEDS:: Review of instructions. ANTICIPATED BARRIERS TO DISCHARGE:: IV ABX course-dependent on duration and frequency-patient re-admitted with recurrent sepsis TRANSPORTATION:: W/C van PLAN:: Brendan will remain in the ICU at this time; closely monitored. CM will continue to monitor clinical progress and support discharge planning considerations.
[2018-01-27 14:47] LABS: Lactate-non-spesis 0.8 mmol/L (0.6-1.4)
[2018-01-27 14:55] LABS: Anion Gap 13.8 mmol/L (3-11); CO2 20.2 mmol/L (21.0-32.0); Calcium 8.9 mg/dL (8.5-10.1); Chloride 107 mmol/L (98-107); Estimated GFR 12.65 (mL/min/1.73m2); Glucose 261 mg/dL (70-100); Potassium 5.2 mmol/L (3.5-5.1); Sodium 141 mmol/L (136-145)
[2018-01-27 15:14] LABS: BUN 80 mg/dL (7-18); CREATININE 4.77 mg/dL (0.70-1.30)
--- NOTE | 2018-01-27 15:16 | CHAPLAIN ---
Brendan was sitting up in bed but nodding off between sentences. He engaged in a conversation, as he always does, but was very tired. I asked if it was okay to let Maldonado Ford know he is here. Maldonado works for [employer] but continued to visit Brendan at the [facility]. I'll continue to visit Brendan.
[2018-01-27] MEDS: risperiDONE 1 MG TAB PO (22:19)
[2018-01-28] VITALS (31 sets, daily range): BP systolic 133–174; BP diastolic 57–85; PULSE 54–96; RESP 13–25; TEMP 35–36.7; O2SAT 94–97
[2018-01-28] MEDS: Ciprofloxacin 0.3% 2.5 ML BTL OU ×11 (00:03→22:16)
[2018-01-28] MEDS: Hydrocortisone SOD SUC. 100 MG VIAL 50 MG IVP ×3 (03:15→14:50)
[2018-01-28] MEDS: PIPERACILLIN/TAZO 2.25 GM in Normal Saline 50 ML IVPB ×3 (03:24→22:22)
[2018-01-28] MEDS: Normal Saline 1,000 ML 150 ML IV ×3 (05:20→21:15)
[2018-01-28] MEDS: Levothyroxine 50 MCG TAB PO (05:23)
[2018-01-28 07:13] LABS: Absolute Basophil Count 0.04 k/cumm (0.0-0.2); Absolute Lymphocyte Count 0.72 k/cumm (1.2-3.4); Absolute Monocyte Count 0.53 k/cumm (0.11-0.7); Basophils % 0.3; Eosinophils % 0.8; HCT 27.9 % (40.0-50.0); HGB 8.7 g/dL (13.5-17.5); Immature Grans % 0.8; Lymphocytes % 5.6; Mean Corp. HGB Concentration 31.2 g/dL (32.0-36.0); Mean Corpuscular Hemoglobin 21.8 pg (27.0-33.0); Mean Corpuscular Volume 69.9 fL (80-95); Mean Platelet Volume 10.3 fL (8.0-11.0); Monocytes % 4.1; Neutrophils % 88.4; Platelet Count 547 x1000/uL (130-400); RBC 3.99 m/cumm (4.50-6.00); RBC Distribution Width 20.5 % (11.8-14.1); White Blood Cell Count 12.93 k/cumm (4.4-10.8)
[2018-01-28 07:25] LABS: Absolute Neutrophil Count 11.43 k/cumm (1.2-6.7)
[2018-01-28 07:33] LABS: Diff Comment RBC Morph Reviewed; Hypochromasia 3+
[2018-01-28 07:34] LABS: Microcytosis 3+; Ovalocytes 2+; Poikilocytes 2+; Polychromasia Present
[2018-01-28 07:35] LABS: Anisocytosis 3+
[2018-01-28 07:42] LABS: Magnesium 1.5 mg/dL (1.8-2.4)
[2018-01-28 07:44] LABS: Anion Gap 14.3 mmol/L (3-11); BUN 70 mg/dL (7-18); CO2 18.7 mmol/L (21.0-32.0); Calcium 8.7 mg/dL (8.5-10.1); Chloride 106 mmol/L (98-107); Estimated GFR 17.62 (mL/min/1.73m2); Glucose 224 mg/dL (70-100); Potassium 4.7 mmol/L (3.5-5.1); Sodium 139 mmol/L (136-145)
[2018-01-28 07:46] LABS: Vancomycin, Random 11.7 ug/mL (5.0-10.0)
[2018-01-28 07:48] LABS: CREATININE 3.58 mg/dL (0.70-1.30)
[2018-01-28 07:54] LABS: C-Reactive Protein 6.98 mg/dL (0.0-0.3)
--- NOTE | 2018-01-28 08:39 | PDOC.CMPRO ---
Care Management Progress Note S/O: CM faxed updated clinicals to the [facility] and provided update. Meg of the [facility] reports the facility is only able to offer once daily IV ABX at this time. Brendan will likely transfer to MED/SURG level of care today. A: 57 [facility] old [facility] for Hypotension, Dehydration, JESUS on CKD, UTI P: Brendan will return to the [facility] when ready for discharge per MD. The facility will manage his further service and equipment requirements.
[2018-01-28] MEDS: carBAMazepine 100 MG CHEW PO ×3 (08:49→22:11)
[2018-01-28] MEDS: Omeprazole 20 MG CAPCR PO (08:49)
[2018-01-28] MEDS: Folic Acid 1 MG TAB PO (08:49)
[2018-01-28] MEDS: Cyanocobalamin 500 MCG TAB 1000 MCG PO (08:49)
[2018-01-28] MEDS: Multivitamin w/Minerals TAB 1 TAB PO (08:49)
[2018-01-28] MEDS: Omega-3 Fatty Acids 1000 MG CAP PO (08:49)
[2018-01-28] MEDS: Aspirin E.C. 81 MG TABEC PO ×2 (08:50→22:10)
[2018-01-28] MEDS: Venlafaxine 75 MG TAB 37.5 MG PO ×3 (08:50→22:16)
[2018-01-28] MEDS: Ferrous Sulfate 325 MG TAB PO ×2 (08:51→22:13)
[2018-01-28] MEDS: Insulin Glargine 300 UNITS/3 ML PEN 10 UNITS SC (08:58)
[2018-01-28] MEDS: Insulin Aspart 300 UNITS/3 ML PEN SC ×3 (09:01→17:26)
[2018-01-28] MEDS: Carvedilol 6.25 MG TAB PO ×2 (09:01→22:11)
[2018-01-28] MEDS: Heparin 5,000 UNITS/ML VIAL 5000 UNITS SC ×2 (09:02→22:22)
--- NOTE | 2018-01-28 09:07 | OTIE_ITS ---
Occupational Therapy Notes Inpatient Occupational Therapy Evaluation Date: 01/28/18 Referring Doctor:Priscila Canela MD OT Orders: Eval and Treat Precautions: Fall Risk, Contact Precautions PATIENT PROFILE/ADMITTING DIAGNOSIS: Pt is a 57 year old male who was recently seen at [facility] on 12/23/17 for sepsis due to a diabetic toe ulcer. Pt was admitted through the ER on 01/26/18 for lethary and hallucinations. Past Medical History: Diabetic neuropathy, diabetic foot ulcers, rheumatoid arthritis, osteoarthritis bilateral knees, sacral decubitus ulcer, chronic renal insufficiency, coronary artery disease, crohn's disease, s/p colectomy, anemia, urinary tract infection, dyslipidemia, hypoandrogenism, cholelithiasis, hypertension, bipolar Disorder, chronic back pain, lower extremity edema, obesity, diabetes mellitus, MRSA blood and urine. Current Functional Limitations: Decreased functional activity tolerance, decreased (I) in ADLs. Pt reports that he is not currently at his baseline for ADLs and has decreased (I) since November 2017. Social History/Home Situation: Pt resides at [facility]. He reports that his is currently total (A) for ADLs but this has recently decline since November 2017. He reports that in November he was able to wash his own face (I), and help with ADL routines with moderate (A) throughout. Equipment owned/DME: [facility] which he uses for ambulation. SUBJECTIVE: Pt was lying in bed when OT arrived. He reports that he doesn't do any of his own stuff, nursing can do it because he can't. OT discussed with pt what Occupational Therapy is and what he was able to do previously. He did report that in November he had increased (I) but still needed (A) and was agreeable to OT consult to increase his (I) in his ADLs so that he isn't max (A ) at this time. OBJECTIVE: General Observation: Downing, IV (R) UE, telemetry Mental Status: A&O to name, location Pain: no c/o pain ROM: RUE Shoulder flexion, elbow flexion unable to perform. L UE Shoulder flexion ~30*, elbow flexion WNL STRENGTH: RUE Unable to test shoulder flexion, elbow 4-/5 patient service associate 3/5 LUE Unable to test shoulder flexion, elbow 4-/5, patient service associate 3/5 BALANCE: Static sitting normal Dynamic Sitting good Static Standing NT Dynamic Standing NT SPECIAL TESTS: Daily Activity Limitations Standardized Measure [facility] AM -PAC ?6 clicks? Daily Activity Inpatient Short Form: Raw score: 12 Standardized score: 30.60 CMS score: 66.57% [facility] modifier: CL INFORMED CONSENT/EDUCATION: Pt instructed in purpose of OT Consult and plan of care. ASSESSMENT: Patient is a 57-year-old male referred to occupational therapy services after being admitted through the ER at [facility] for lethargy and hallucinations. Pt was seen previously at [facility] on 12/23/17 for sepsis due to diabetic ulcers in setting of Bipolar Disorder, chronic back pain, lower extremity edema, obesity, diabetes mellitus, diabetic neuropathy, diabetic foot ulcers, rheumatoid arthritis, osteoarthritis bilateral knees, sacral decubitus ulcer, chronic renal insufficiency, coronary artery disease, crohn's disease, s/ p colectomy, anemia, urinary tract infection, dyslipidemia, hypoandrogenism, cholelithiasis, hypertension. Patient presents with clinical signs and symptoms consistent with this dx and deconditioning, as demonstrated by the following impairment level findings: Decreased (B) UE ROM, Decreased (B) UE strengthening, decreased functional activity tolerance, decreased (I) in ADLs per pt report since November 2017, decreased functional dynamic simulations. Impairments are contributing to the following functional limitations: Difficulty performing ADL routine per pt's baseline (see above). OT recommends that pt return to [facility] when medically cleared per MD. AMPAC score 12, CMS score 66.57% Patient is assessed as a Moderate 23910 complexity based on the following: History: See Above Examination: See Above Presentation: Evolving Decision Making: AMPAC score 12, CMS score 66.57% GOALS Goals x1 week in hospital setting 1. Transfers SBA, FWW 2. Dressing: Sitting on side of bed, pt will be able to put at least one of his UE into the hospital gown (I) with min verbal cues. 3. Bathing: Sitting on side of bed pt will be able to wash face, (B) UE and abdomen (I) with min verbal cues. 4. Eating: Pt will be able to cut his own food with use of adaptive equipment and min verbal cues. PLAN OF CARE/TREATMENT PLAN: 1x/day, 5 days/ week x 1week Initiate Occupational Therapy Services for bathing, dressing, grooming, toileting, eating, transfer training. DISCHARGE RECOMMENDATIONS Return to [facility] when medically cleared per MD. TREATMENT TIME/MINUTES/CODES 30 min IE (08:35) G Codes in the area of self- : washing oneself, toileting, dressing, eating and drinking, current status GO [id number] CL projected status GO [id number]. Discharge status (if discharging) GO [id number]. Based on OT consult [facility] score of 12, CMS score 66.57%. Suzanne Javier OTR/L
[2018-01-28] MEDS: Sertraline 25 MG TAB PO (09:43)
--- NOTE | 2018-01-28 09:55 | CMPROGNOTE_ITS ---
Care Management Progress Note S/O: CM faxed updated clinicals to the [facility] and provided update. Meg of the [facility] reports the facility is only able to offer once daily IV ABX at this time. Brendan will likely transfer to MED/SURG level of care today. A: 57 year old male admitted to [facility] 01/26/18 for Hypotension, Dehydration, JESUS on CKD, UTI P: Brendan will return to the [facility] when ready for discharge per MD. The facility will manage his further service and equipment requirements.
[2018-01-28] MEDS: MAGNESIUM SULFATE 2 GM/50 ML BAG IVPB (10:25)
[2018-01-28] MEDS: VANCOMYCIN 1,000 MG in Normal Saline 250 ML 250 MG IV (10:36)
[2018-01-28] MEDS: Normal Saline Flush 10 ML SYR IVP (10:45)
--- NOTE | 2018-01-28 11:09 | IN_ITS ---
Date of service: 01/28/18 Time of Service: 10:57 PT Notes Date: 12/29/17 Referring Doctor: Priscila Canela PT Orders: PT CONSULT: eval/treat Precautions: Fall precautions, Contact Precautions for MRSA in blood and urine Patient Profile/Admitting Diagnosis: Pt is a 57yr old male admitted with hypotension, dehydrations, sepsis, acute kidney injury, urinary tract infections , hypokalemia, right lateral foot ulcer and right great toe ulcer PMHX: Bipolar Disorder, chronic back pain, lower extremity edema, obesity, diabetes mellitus, diabetic neuropathy, diabetic foot ulcers, rheumatoid arthritis, osteoarthritis bilateral knees, sacral decubitus ulcer, chronic renal insufficiency, coronary artery disease, crohn's disease, s/p colectomy, anemia, urinary tract infection, dyslipidemia, hypoandrogenism, cholelithiasis, hypertension Social History/Home Situation: Resident of [facility]. Per patient he was ambulatory with FWW in hallways Equipment Owned/DME: FWW, pt wears sneakers with gait does not have them here at the hospital Subjective: Pt sitting at edge of bed, sleepy, arousable to verbal stimulus and able to engage in conversation. Pt states he is not walking but agreeable to get out of bed to chair. Reports he does not have his sneakers here with him. Objective: General Observation: telemetry, ruiz catheter, IV R UE, facial sore with bandage bloody, right great toe gauze dressing BO hose bilaterally, socks applied bilaterally Mental Status: A& O to name, location, situation Pain: no c/o pain Bed Mobility/Transfers: Sit-stand: CGA with FWW and gait belt Bed-chair: CGA with FWW and gait belt Stand-sit: SBA Gait: CGA with FWW 4 steps bed to chair. Pt declined further gait at this time. bilateral feet elevated on pillow on chair foot stool Therex: performed long arc quads x 20 , hip flexion x 10 bilaterally Balance: Static Sitting: normal Dynamic Sitting: normal Static Standing: fair Dynamic Standing: fair Special Tests: Mobility Limitations Standardized Measure [facility] AM-PAC 6 clicks Basic Mobility Inpatient Short Form: Raw Score: 18 Standardized Score: 43.63 CMS Score: 46.58% CMS Modifier: CK Informed Consent/Education: Patient instructed in purpose of PT consult and plan of care. Assessment: Pt is a 57yr old male admitted with hypotension, dehydrations, sepsis, acute kidney injury, urinary tract infections, hypokalemia, right lateral foot ulcer and right great toe ulcer in setting of Bipolar Disorder, chronic back pain, lower extremity edema, obesity, diabetes mellitus, diabetic neuropathy, diabetic foot ulcers, rheumatoid arthritis, osteoarthritis bilateral knees, sacral decubitus ulcer, chronic renal insufficiency, coronary artery disease. Patient presents with the following impairment level findings: decreased UE ROM, decreased strength in bilateral UE's and bilateral Le's, decreased strength with transfers and gait requiring use of FWW for stability, decreased static and dynamic standing balance putting him at high risk for falls. Pt will benefit from skilled therapy intervention, anticipate return to the [facility] when medically stable. Impairments are contributing to the following functional limitations: AMPAC score CMS Score: 46.58% Patient is assessed as a High [id number] complexity based on the following: History: see above Examination: see above Presentation: evolving Decision Making: AMPAC score CMS Score: 46.58% Goals: Goals X1 week 1. Supine-Sit independent 2. Sit-Supine independent 3. Sit-Stand supervision with FWW 4. Stand-Sit supervision 5. Bed-Chair supervision with FWW 6. Chair-Bed supervision with FWW 7. Gait SBA with FWW [id number] Plan of Care/Treatment Plan: 1-2x/day, 7 days/week x 1 week. Plan of care has been reviewed with the VP [employer] providing the service under Physical Therapy direction. Initiate Physical Therapy intervention for strengthening, bed mobility, transfers, gait, stairs, balance training, use of assistive device. DISCHARGE RECOMMENDATIONS: Return to the [facility] TREATMENT CODES: 26min IE 10:56 G Codes in the area mobility of walking and moving around: current status [id number] CK; projected status GP [id number] Discharge status (if discharging) GP [id number] CK based AMPAC score CMS Score: 46.58% Yolanda Chang PT
--- NOTE | 2018-01-28 15:48 | W.PM.PROGNOT ---
Date of Service Date of service: 01/28/18 Time of Service: 15:55 Assessment and Plan (1) Sepsis: Current visit: Yes Status: Acute While UTI POA was initially suspected as the source of sepsis, the urine culture is not growing the same organism as blood. Blood cx are positive for MRSA. Repeat echo is pending. May need KELLEE based on the presence of a murmur. May downgrade from ICU. (2) Complicated UTI (urinary tract infection): Current visit: Yes Status: Acute Urine C&S is growing yeast - which I am not inclined to treat because the patient does not have signs of fungus ball/systemic fungemia. Can d/c ruiz and perform voiding trial. (3) Adrenal insufficiency: Current visit: No Status: Chronic Acute on chronic. Can start to decrease steroids (4) Toxic metabolic encephalopathy: Current visit: No Status: Acute Resolved. Likely in setting of sepsis as well as JESUS and encephalopathy due to buildup of renally-cleared medications. Continue renally dose meds. Monitor mental status. (5) Acute on chronic kidney failure: Current visit: Yes Status: Acute With slight improvement. Continue IVF and treat underlying infection. Hyperkalemia resolved Monitor strict I/O. Ok to d/c ruiz with a voiding trial. (6) Hyperkalemia: Current visit: Yes Status: Resolved Resolved (7) Diabetic foot ulcer: Current visit: Yes Status: Chronic Appreciate Dr Ashford's wound care recommendations. Continue broad spectrum antibiotics. (8) Diabetes mellitus type 2, controlled: Current visit: No Status: Chronic We are increasing basal insulin (9) Dehydration: Current visit: Yes Status: Acute Continue IVF (10) Conjunctivitis: Current visit: Yes Status: Acute Continue ciprofloxacin eye drops (11) Hypothyroidism: Current visit: No Status: Chronic Continue synthroid (12) Rheumatoid arthritis: Current visit: No Status: Chronic Starting to taper stress dose steroids (13) Crohns disease: Current visit: No Status: Chronic On stress dose steroids. no evidence of a flare at this time. (14) Ambulatory dysfunction: Current visit: Yes Status: Acute PT/OT consulted - appreciate help (15) Discharge planning issues: Current visit: Yes Status: Acute From retirement and is expected to return there on discharge. However, may have to complete antibiotics at [facility] (may have to be made swing-bed status, once better). Will likely need KELLEE. (16) DVT prophylaxis: Current visit: No Status: Acute Continue heparin 5,000 iu SC BID Subjective Interval history since last seen: Mr Corley states he feels a lot better today. He remembers me and apparently had been telling nurses all about me before I went into the room. He is itchy. Otherwise, he denies dizziness, chest pain, shortness of breath, cough other than his occasional chronic cough, nausea, vomiting. Exam Narrative Exam Narrative: General: Obese middle-aged male, A&Ox3, sitting at the edge of the bed, very alert Neurological: A&Ox3, no focal deficits Psychiatric: calm, appropriate, cooperative, at his baseline Skin: R foot dressed - c/d/i; L great toe with a scab, does not appear infected HEENT: EOMI, MMM, very poor dentition, no JVD Cardiovascular: RRR, +systolic ejection murmur Lungs: CTAB/diminished Gastrointestinal: abdomen soft, nontender, nondistended Genitourinary: has a ruiz Extremities: wearing BO stockings; R foot dressed; L foot with L great toe abrasion; 1+ pedal pulse LLE; no clubbing/cyanosis, trace edema Objective Objective Clinical Data: Abnormal lab results 01/26/18 01/28/18 01/28/18 Range/Units 17:50 06:30 06:30 WBC 12.93 H (4.4-10.8) k/cumm RBC 3.99 L (4.50-6.00) m/cumm Hgb 8.7 L (13.5-17.5) g/dL Hct 27.9 L (40.0-50.0) % MCV 69.9 L (80-95) fL MCH 21.8 L (27.0-33.0) pg MCHC 31.2 L (32.0-36.0) g/dL RDW 20.5 H (11.8-14.1) % Plt Count 547 H (130-400) x1000/uL Absolute Neutrophils 11.43 H (1.2-6.7) k/cumm Absolute Lymphocytes 0.72 L (1.2-3.4) k/cumm Carbon Dioxide (21.0-32.0) mmol/L Anion Gap (3-11) mmol/L BUN (7-18) mg/dL Creatinine (0.70-1.30) mg/dL Glucose (70-100) mg/dL Magnesium 1.5 L (1.8-2.4) mg/dL C-Reactive Protein 6.98 H (0.0-0.3) mg/dL Urine Protein 100 H (Negative) mg/dL Urine Ketones Trace H (Negative) mg/dL Urine Blood Large H (Negative) Urine Bilirubin Small H (Negative) Ur Leukocyte Esterase Large H (Negative) Random Vancomycin 11.7 H* (5.0-10.0) ug/mL 01/28/18 Range/Units 06:35 WBC (4.4-10.8) k/cumm RBC (4.50-6.00) m/cumm Hgb (13.5-17.5) g/dL Hct (40.0-50.0) % MCV (80-95) fL MCH (27.0-33.0) pg MCHC (32.0-36.0) g/dL RDW (11.8-14.1) % Plt Count (130-400) x1000/uL Absolute Neutrophils (1.2-6.7) k/cumm Absolute Lymphocytes (1.2-3.4) k/cumm Carbon Dioxide 18.7 L (21.0-32.0) mmol/L Anion Gap 14.3 H (3-11) mmol/L BUN 70 H (7-18) mg/dL Creatinine 3.58 H* D (0.70-1.30) mg/dL Glucose 224 H (70-100) mg/dL Magnesium (1.8-2.4) mg/dL C-Reactive Protein (0.0-0.3) mg/dL Urine Protein (Negative) mg/dL Urine Ketones (Negative) mg/dL Urine Blood (Negative) Urine Bilirubin (Negative) Ur Leukocyte Esterase (Negative) Random Vancomycin (5.0-10.0) ug/mL Vital Signs Temperature 35 C L 01/28/18 12:33 Temperature Source Tympanic 01/28/18 12:33 Pulse 57 L 01/28/18 12:34 Pulse 60 01/28/18 15:00 Respiratory Rate 17 01/28/18 15:00 Respiratory Effort 01/28/18 12:33 Respiratory Depth Normal 01/28/18 12:33 Respiratory Pattern Normal 01/28/18 12:33 Blood Pressure 158/78 H 01/28/18 12:34 Blood Pressure Mean 96 01/28/18 12:34 Blood Pressure Position Supine 01/28/18 12:33 Pulse Oximetry 96 01/28/18 12:34 Oxygen Delivery Method Room Air 01/28/18 12:33 Oxygen Flow Rate 0 01/28/18 12:33 Pain Level 0 01/28/18 12:33 Intake & Output 01/27/18 01/28/18 01/28/18 23:59 11:59 23:59 Intake Total 2550 / 2550 1790 / 1790 1580 / 1580 Output Total 2500 / 2500 800 / 800 925 / 925 Balance 50 / 50 990 / 990 655 / 655 Weight 100 kg Intake: IV 50 / 50 1050 / 1050 1340 / 1340 Oral 2500 / 2500 740 / 740 240 / 240 Output: Drainage 150 / 150 225 / 225 200 / 200 Right Lateral Abdomen 150 / 150 225 / 225 200 / 200 Urine 425 / 425 350 / 350 550 / 550 Stool 1925 / 1925 225 / 225 175 / 175 Other: Urine Color Yellow Yellow Yellow Urine Appearance Cloudy Cloudy Cloudy Sediment Sediment Sediment Urine Odor None Comment ruiz to gravity with concentrated, cloudy dark yellow urine Ruiz catheter draining yellow urine. Chem strip showing moderate leukocytes, 1+ protein, a pH of 6, small amt of blood and SG of 1.020. Ruiz catheter draining yellow urine. Voiding Methods Indwelling Catheter Indwelling Catheter Laboratory Results WBC 12.93 k/cumm (4.4-10.8) H 01/28/18 06:30 RBC 3.99 m/cumm (4.50-6.00) L 01/28/18 06:30 Hgb 8.7 g/dL (13.5-17.5) L 01/28/18 06:30 Hct 27.9 % (40.0-50.0) L 01/28/18 06:30 MCV 69.9 fL (80-95) L 01/28/18 06:30 MCH 21.8 pg (27.0-33.0) L 01/28/18 06:30 MCHC 31.2 g/dL (32.0-36.0) L 01/28/18 06:30 RDW 20.5 % (11.8-14.1) H 01/28/18 06:30 Plt Count 547 x1000/uL (130-400) H 01/28/18 06:30 MPV 10.3 fL (8.0-11.0) 01/28/18 06:30 Immature Gran % 0.8 01/28/18 06:30 Neutrophils % 88.4 01/28/18 06:30 Lymphocytes % 5.6 01/28/18 06:30 Monocytes % 4.1 01/28/18 06:30 Eosinophils % 0.8 01/28/18 06:30 Basophils % 0.3 01/28/18 06:30 Absolute Neutrophils 11.43 k/cumm (1.2-6.7) H 01/28/18 06:30 Absolute Lymphocytes 0.72 k/cumm (1.2-3.4) L 01/28/18 06:30 Absolute Monocytes 0.53 k/cumm (0.11-0.7) 01/28/18 06:30 Absolute Eosinophils 0.10 k/cumm (0.0-0.7) 01/28/18 06:30 Absolute Basophils 0.04 k/cumm (0.0-0.2) 01/28/18 06:30 Differential Comment Rbc morph reviewed 01/28/18 06:30 RBC Morphology See below 01/28/18 06:30 Polychromasia Present 01/28/18 06:30 Hypochromasia 3+ 01/28/18 06:30 Poikilocytosis 2+ 01/28/18 06:30 Anisocytosis 3+ 01/28/18 06:30 Microcytosis 3+ 01/28/18 06:30 Ovalocytes 2+ 01/28/18 06:30 PT 11.5 sec (9.3-10.8) H 01/26/18 17:28 INR 1.2 (1.0-3.5) 01/26/18 17:28 APTT 26.2 sec (21.0-31.4) 01/26/18 17:28 Sodium 139 mmol/L (136-145) 01/28/18 06:35 Potassium 4.7 mmol/L (3.5-5.1) 01/28/18 06:35 Chloride 106 mmol/L (98-107) 01/28/18 06:35 Carbon Dioxide 18.7 mmol/L (21.0-32.0) L 01/28/18 06:35 Anion Gap 14.3 mmol/L (3-11) H 01/28/18 06:35 BUN 70 mg/dL (7-18) H 01/28/18 06:35 Creatinine 3.58 mg/dL (0.70-1.30) H* D 01/28/18 06:35 Estimated GFR/1.73 m2 17.62 (mL/min/1.73m2) 01/28/18 06:35 Glucose 224 mg/dL (70-100) H 01/28/18 06:35 Lactate 0.8 mmol/L (0.6-1.4) 01/27/18 14:35 Calcium 8.7 mg/dL (8.5-10.1) 01/28/18 06:35 Magnesium 1.5 mg/dL (1.8-2.4) L 01/28/18 06:30 Total Bilirubin 0.3 mg/dL (0.2-1.0) 01/27/18 06:10 AST 10 U/L (15-37) L 01/27/18 06:10 ALT 17 U/L (12-78) 01/27/18 06:10 Alkaline Phosphatase 316 U/L (46-116) H 01/27/18 06:10 Creatine Kinase 17 U/L (39-308) L 01/27/18 06:10 Troponin I < 0.02 ng/mL (0.00-0.06) 01/26/18 17:28 C-Reactive Protein 6.98 mg/dL (0.0-0.3) H 01/28/18 06:30 Total Protein 7.4 g/dL (6.4-8.2) 01/27/18 06:10 Albumin 2.1 g/dL (3.4-5.0) L 01/27/18 06:10 TSH 0.54 uIU/mL (0.358-3.74) 01/26/18 17:15 Urine Color Yellow (Yellow) 01/26/18 17:50 Urine Clarity Cloudy 01/26/18 17:50 Urine pH 5.5 (5-8) 01/26/18 17:50 Ur Specific [place]tt 1.025 (1.005-1.025) 01/26/18 17:50 Urine Protein 100 mg/dL (Negative) H 01/26/18 17:50 Urine Ketones Trace mg/dL (Negative) H 01/26/18 17:50 Urine Blood Large (Negative) H 01/26/18 17:50 Urine Nitrite Negative (Negative) 01/26/18 17:50 Urine Bilirubin Small (Negative) H 01/26/18 17:50 Urine Urobilinogen 0.2 EU/dL (Up TO 0.2) 01/26/18 17:50 Ur Leukocyte Esterase Large (Negative) H 01/26/18 17:50 Urine RBC Not Applicable 01/26/18 17:50 Urine WBC >50 HPF (0-5) 01/26/18 17:50 Ur Epithelial Cells Not Applicable 01/26/18 17:50 Urine Crystals Not Applicable 01/26/18 17:50 Urine Bacteria Not Applicable 01/26/18 17:50 Urine Mucus Not Applicable 01/26/18 17:50 Urine Other Few yeast (Negative) 01/26/18 17:50 Ur Culture Indicated? Yes 01/26/18 17:50 Urine Glucose Negative mg/dL (Negative) 01/26/18 17:50 Random Vancomycin 11.7 ug/mL (5.0-10.0) H* 01/28/18 06:30
--- NOTE | 2018-01-28 19:01 | NUR.NOTE ---
Nursing Note: 1900-pt transferred out of ICU to room 208 via wheelchair to med surg floor
[2018-01-28] MEDS: Hydrocortisone SOD SUC. 100 MG VIAL 25 MG IVP (22:14)
[2018-01-28] MEDS: risperiDONE 1 MG TAB PO (22:18)
[2018-01-29] MEDS: Ciprofloxacin 0.3% 2.5 ML BTL OU ×4 (00:12→06:15)
[2018-01-29] MEDS: Hydrocortisone SOD SUC. 100 MG VIAL 25 MG IVP ×3 (01:15→15:21)
[2018-01-29 03:45] VITALS: BP 170/79; PULSE 83; RESP 18; TEMP 36.7; O2SAT 97
[2018-01-29] MEDS: PIPERACILLIN/TAZO 2.25 GM in Normal Saline 50 ML IVPB ×3 (04:01→21:26)
[2018-01-29] MEDS: Normal Saline 1,000 ML 150 ML IV ×3 (04:02→21:22)
[2018-01-29] MEDS: Levothyroxine 50 MCG TAB PO (06:15)
[2018-01-29 07:22] LABS: Anion Gap 11.6 mmol/L (3-11); BUN 54 mg/dL (7-18); CO2 18.4 mmol/L (21.0-32.0); CREATININE 2.42 mg/dL (0.70-1.30); Calcium 8.4 mg/dL (8.5-10.1); Chloride 110 mmol/L (98-107); Estimated GFR 27.68 (mL/min/1.73m2); Glucose 252 mg/dL (70-100); Magnesium 1.6 mg/dL (1.8-2.4); Sodium 140 mmol/L (136-145)
[2018-01-29 07:34] LABS: Abs Immature Grans 0.07 k/cumm (0.0-0.09); Absolute Basophil Count 0.05 k/cumm (0.0-0.2); Absolute Eosinophil Count 0.31 k/cumm (0.0-0.7); Absolute Lymphocyte Count 0.92 k/cumm (1.2-3.4); Absolute Monocyte Count 0.64 k/cumm (0.11-0.7); Absolute Neutrophil Count 8.76 k/cumm (1.2-6.7); Basophils % 0.5; Eosinophils % 2.9; HCT 26.1 % (40.0-50.0); Immature Grans % 0.7; Lymphocytes % 8.6; Mean Corp. HGB Concentration 30.7 g/dL (32.0-36.0); Mean Corpuscular Hemoglobin 21.6 pg (27.0-33.0); Mean Corpuscular Volume 70.5 fL (80-95); Mean Platelet Volume 9.7 fL (8.0-11.0); Neutrophils % 81.3; Platelet Count 551 x1000/uL (130-400); RBC Distribution Width 20.4 % (11.8-14.1); White Blood Cell Count 10.75 k/cumm (4.4-10.8)
[2018-01-29 07:35] VITALS: BP 174/78; PULSE 70; RESP 20; TEMP 36.2; O2SAT 98
[2018-01-29 08:13] LABS: Anisocytosis 3+; Diff Comment RBC Morph Reviewed; Hypochromasia 3+; Microcytosis 3+
[2018-01-29 08:14] LABS: Tear Drop Cells 2+
[2018-01-29] MEDS: Heparin 5,000 UNITS/ML VIAL 5000 UNITS SC ×2 (09:35→20:51)
[2018-01-29] MEDS: Insulin Aspart 300 UNITS/3 ML PEN SC ×3 (09:36→16:41)
--- NOTE | 2018-01-29 09:36 | PT.INTREAT ---
Date of service: 01/29/18 Time of Service: 09:36 PT Notes Inpatient Physical Therapy Treatment Note Date: 01/29/18 PRECAUTIONS: Fall, Contact SUBJECTIVE: Brendan states that he hasn't had breakfast or gotten up yet this morning. He is agreeable to PT following some encouragement. OBJECTIVE: Patient does not have shoes here. Spoke with care management, who will contact the [facility] to have shoes brought in for further gait training, for increased stability. PAIN: No c/o pain BED MOBILITY/TRANSFERS Supine-sit: I with HOB at 10 degrees Sit-stand: SBA Stand-sit: SBA GAIT Assistive Device: FWW Weight bearing: WBAT Assist: CGA Distance: 15'x2 Seated at EOB for breakfast, independently. ASSESSMENT: Patient was able to perform transfers and gait training, well, without complaint. He requires encouragement to participate, although eventually agrees. He would benefit from continued gait and transfer training for improved mobility. PLAN: Continue with PT's POC TREATMENT CODE/TIME: 30 minutes; TAx2
[2018-01-29] MEDS: Insulin Glargine 300 UNITS/3 ML PEN 20 UNITS SC (09:37)
[2018-01-29] MEDS: Omega-3 Fatty Acids 1000 MG CAP PO (09:39)
[2018-01-29] MEDS: Multivitamin w/Minerals TAB 1 TAB PO (09:39)
[2018-01-29] MEDS: carBAMazepine 100 MG CHEW PO ×3 (09:39→20:52)
[2018-01-29] MEDS: Cyanocobalamin 500 MCG TAB 1000 MCG PO (09:40)
[2018-01-29] MEDS: Normal Saline Flush 10 ML SYR IVP ×2 (09:40→20:47)
[2018-01-29] MEDS: Sertraline 25 MG TAB PO (09:41)
[2018-01-29] MEDS: Omeprazole 20 MG CAPCR PO (09:41)
[2018-01-29] MEDS: Aspirin E.C. 81 MG TABEC PO ×2 (09:41→20:51)
[2018-01-29] MEDS: Venlafaxine 75 MG TAB 37.5 MG PO ×3 (09:41→20:51)
[2018-01-29] MEDS: Ferrous Sulfate 325 MG TAB PO ×2 (09:41→20:52)
[2018-01-29] MEDS: Folic Acid 1 MG TAB PO (09:41)
[2018-01-29] MEDS: Carvedilol 6.25 MG TAB PO ×2 (09:41→20:51)
[2018-01-29] MEDS: amLODIPine 5 MG TAB 10 MG PO (09:42)
--- NOTE | 2018-01-29 09:54 | OTTR_ITS ---
Date of service: 01/29/18 Time of Service: 09:15 Occupational Therapy Notes Occupational Therapy Inpatient Treatment Note Date: 01/29/18 PRECAUTIONS: Contact Precautions SUBJECTIVE: Pt was sitting on side of bed when OT arrived. He reports that he is in agreement with OT session. OBJECTIVE: PAIN:no c/o pain. EATING: Pt able to perform elbow flexion to stab food with fork and bring food to his mouth. Pt required max (A) for opening and closing containers. Pt was educated to attempt to open any containers on his tray before having someone do this for him. Pt required minimal vc for stabbing of food and gripping of utensils. Pt demonstrates ideal supination and pronation to perform stabbing of food. Education and Training: Pt reports that he is frustrated when people talk down to him. OT discussed with pt that everyone in the hospital is here to help him get stronger. OT educated pt in deep breathing techniques, to inhale and hold breathe for 10 seconds and then exhale slowly. Pt demonstrated good technique for this and educated to perform this throughout the day if he feels frustrated. Pt verbalized understaning of this and states he is willing to try this. ASSESSMENT: Pt is demonstrating a more receptive attitude today for education and training. He was receptive to training in proper holding of his utensils during eating routine. He was also demonstrating increased dynamic function of ( L) UE and was able to wipe his mouth and perform shoulder and elbow flexion during eating routine. Pt would benefit from continued skilled OT services for initiation of ROM exercises to increase pts (I) in ADLs, training in UE bathing to increase (I) and education on adaptive equipment. Pt would benefit from adaptive equipment for utensils, OT will check with food services about adaptive forks and spoons to increase pt's (I) in eating routine. PLAN: Per POC. TREATMENT CODES/TIME: Self Carex2, 25minutes (09:15) DAVID Hi/Silva
[2018-01-29] MEDS: VANCOMYCIN 1,000 MG in Normal Saline 250 ML 250 MG IV (10:36)
[2018-01-29 12:00] VITALS: BP 168/80; PULSE 78; RESP 20; TEMP 36.2; O2SAT 97
[2018-01-29] MEDS: MAGNESIUM SULFATE 2 GM/50 ML BAG IVPB (13:23)
--- NOTE | 2018-01-29 13:59 | PDOC.CMPRO ---
- If Service Date Differs Date of service: 01/29/18 Time of Service: 13:59 Care Management Progress Note S/O: Brendan is lying in bed this morning when this data analyst report writer visits. PT requested Brendan's shoes for ambulation which Isela, [facility], delivered today. Brendan continues to receive IV antibiotics at this time. He will return to [facility] once medically cleared. A: 57 y/o male admitted 01/26/18 for hypotension, dehydration, JESUS P: Brendan will return to the [facility] when ready for discharge per MD. The facility will manage his further service and equipment requirements.
--- NOTE | 2018-01-29 14:02 | CMPROGNOTE_ITS ---
- If Service Date Differs Date of service: 01/29/18 Time of Service: 13:59 Care Management Progress Note S/O: Brendan is lying in bed this morning when this machine sign writer visits. PT requested Brendan's shoes for ambulation which Isela, [facility], delivered today. Brendan continues to receive IV antibiotics at this time. He will return to [facility] once medically cleared. A: 57 y/o male admitted 01/26/18 for hypotension, dehydration, JESUS P: Brendan will return to the [facility] when ready for discharge per MD. The facility will manage his further service and equipment requirements.
--- NOTE | 2018-01-29 14:44 | W.INDIABCONS ---
Date of service: 01/29/18
--- NOTE | 2018-01-29 15:00 | PT.INTREAT ---
Date of service: 01/29/18 Time of Service: 15:00 PT Notes Inpatient Physical Therapy Treatment Note Date: 01/29/18 PRECAUTIONS: Fall precautions, Contact Precautions- MRSA SUBJECTIVE: Pt lying in bed, agreeable to therapy session. His sneakers have arrived from the [facility]. OBJECTIVE: General observation: IV R UE, dressing R great toe, BO hose PAIN: no c/o pain BED MOBILITY/TRANSFERS * max A to don bilateral sneakers for transfers Rolling L/R: independent Supine-sit: independent Sit-supine: independent Sit-stand: SBA with FWW- hospital bed elevated to higher height Stand-sit: SBA bed elevated GAIT * sneakers on for gait session Assistive Device: FWW Weight bearing: as tolerated Assist: SBA Distance: 20ftx2 Deviation: wide stance, externally rotates bilateral hips, decreased heel strike, stride length and push off, step to step gait pattern with FWW. Pt declines gait out of room. THEREX: pt defers stating he is tired ASSESSMENT: Improved strength with transfers, improved mobility with gait with FWW with use of sneakers. Progressing well with therapy intervention. PLAN: Progress strengthening Progress gait distance TREATMENT CODE/TIME: 24min TAx2 [id number] Yolanda Chang PT
--- NOTE | 2018-01-29 15:06 | PTTR_ITS ---
Date of service: 01/29/18 Time of Service: 15:00 PT Notes Inpatient Physical Therapy Treatment Note Date: 01/29/18 PRECAUTIONS: Fall precautions, Contact Precautions- MRSA SUBJECTIVE: Pt lying in bed, agreeable to therapy session. His sneakers have arrived from the [facility]. OBJECTIVE: General observation: IV R UE, dressing R great toe, BO hose PAIN: no c/o pain BED MOBILITY/TRANSFERS * max A to don bilateral sneakers for transfers Rolling L/R: independent Supine-sit: independent Sit-supine: independent Sit-stand: SBA with FWW- hospital bed elevated to higher height Stand-sit: SBA bed elevated GAIT * sneakers on for gait session Assistive Device: FWW Weight bearing: as tolerated Assist: SBA Distance: 20ftx2 Deviation: wide stance, externally rotates bilateral hips, decreased heel strike , stride length and push off, step to step gait pattern with FWW. Pt declines gait out of room. THEREX: pt defers stating he is tired ASSESSMENT: Improved strength with transfers, improved mobility with gait with FWW with use of sneakers. Progressing well with therapy intervention. PLAN: Progress strengthening Progress gait distance TREATMENT CODE/TIME: 24min TAx2 [id number] Yolanda Chang PT
[2018-01-29 17:12] VITALS: BP 176/85; PULSE 62; RESP 20; TEMP 37.2; O2SAT 94
--- NOTE | 2018-01-29 18:34 | PGE_ITS ---
Date of Service Date of service: 01/29/18 Time of Service: 15:30 Assessment and Plan (1) Sepsis: Current visit: Yes Status: Acute Blood cx are positive for MRSA in 1 bottle. Murmur is new, as far as I can tell. I have placed a phone call to speak with [facility]. May need KELLEE based on the presence of a murmur. Continue vancomycin, zosyn. Consider discontinuing zosyn. (2) Complicated UTI (urinary tract infection): Current visit: Yes Status: Acute I am no longer sure this diagnosis is real. Urine C&S is growing yeast - no signs of fungus ball/systemic fungemia. Undergoing voiding trial. (3) Adrenal insufficiency: Current visit: No Status: Chronic Acute on chronic. Continue to taper steroids. (4) Toxic metabolic encephalopathy: Current visit: No Status: Acute Resolved. Likely in setting of sepsis as well as JESUS and encephalopathy due to buildup of renally-cleared medications. Continue renally dose meds. Monitor mental status. (5) Acute on chronic kidney failure: Current visit: Yes Status: Acute With significant improvement from yesterday. Continue IVF and treat underlying infection. Hyperkalemia resolved. Monitor strict I/O. Renal diet. (6) Hyperkalemia: Current visit: Yes Status: Resolved Resolved (7) Diabetic foot ulcer: Current visit: Yes Status: Chronic Wound care per Dr Ashford. Continue broad spectrum antibiotics. (8) Diabetes mellitus type 2, controlled: Current visit: No Status: Chronic We are increasing basal insulin (9) Dehydration: Current visit: Yes Status: Acute Continue IVF (10) Conjunctivitis: Current visit: Yes Status: Acute Continue ciprofloxacin eye drops (11) Hypothyroidism: Current visit: No Status: Chronic Continue synthroid (12) Rheumatoid arthritis: Current visit: No Status: Chronic Continue steroid taper (13) Crohns disease: Current visit: No Status: Chronic On stress dose steroids. no evidence of a flare at this time. (14) Ambulatory dysfunction: Current visit: Yes Status: Acute PT/OT consulted - appreciate help (15) Discharge planning issues: Current visit: Yes Status: Acute From intermediate and is expected to return there on discharge. However, may have to complete antibiotics at [facility] (may have to be made swing-bed status, once better). Will likely need KELLEE. (16) DVT prophylaxis: Current visit: No Status: Acute Continue heparin 5,000 iu SC BID Subjective Interval history since last seen: Denies any pain, dizziness, chest pain, shortness of breath, nausea, vomiting. Feels better today. Awake, asking appropriate questions. Exam Narrative Exam Narrative: General: Obese middle-aged male, A&Ox3, in bed, very alert and conversant Neurological: A&Ox3, no focal deficits Psychiatric: calm, appropriate, cooperative, at his baseline Skin: R foot dressed - c/d/i; L great toe with a scab, does not appear infected HEENT: EOMI, MMM, very poor dentition, no JVD Cardiovascular: RRR, +systolic ejection murmur (much softer today) Lungs: CTAB/diminished Gastrointestinal: abdomen soft, nontender, nondistended; cholecystostomy drain in place - draining yellow fluid; Ostomy in place - liquid output Genitourinary: has a ruiz Extremities: wearing BO stockings; R foot dressed; L foot with L great toe abrasion; 1+ pedal pulse LLE; no clubbing/cyanosis, trace edema Objective Objective Clinical Data: Abnormal lab results 01/29/18 01/29/18 Range/Units 06:45 06:45 RBC 3.70 L (4.50-6.00) m/cumm Hgb 8.0 L (13.5-17.5) g/dL Hct 26.1 L (40.0-50.0) % MCV 70.5 L (80-95) fL MCH 21.6 L (27.0-33.0) pg MCHC 30.7 L (32.0-36.0) g/dL RDW 20.4 H (11.8-14.1) % Plt Count 551 H (130-400) x1000/uL Absolute Neutrophils 8.76 H (1.2-6.7) k/cumm Absolute Lymphocytes 0.92 L (1.2-3.4) k/cumm Chloride 110 H (98-107) mmol/L Carbon Dioxide 18.4 L (21.0-32.0) mmol/L Anion Gap 11.6 H (3-11) mmol/L BUN 54 H D (7-18) mg/dL Creatinine 2.42 H D (0.70-1.30) mg/dL Glucose 252 H (70-100) mg/dL Calcium 8.4 L (8.5-10.1) mg/dL Magnesium 1.6 L (1.8-2.4) mg/dL Vital Signs Temperature 37.2 C 01/29/18 17:12 Temperature Source Tympanic 01/29/18 17:12 Pulse 62 01/29/18 17:12 Pulse Rhythm Regular 01/29/18 11:42 Pulse 73 01/28/18 18:00 Respiratory Rate 20 01/29/18 17:12 Respiratory Effort 01/29/18 11:42 Respiratory Depth Normal 01/29/18 11:42 Respiratory Pattern Normal 01/29/18 11:42 Blood Pressure 176/85 H 01/29/18 17:12 Blood Pressure Mean 94 01/28/18 17:14 Blood Pressure Position Supine 01/28/18 16:55 Pulse Oximetry 94 L 01/29/18 17:12 Oxygen Delivery Method Room Air 01/29/18 17:12 Oxygen Flow Rate 0 01/29/18 17:12 Pain Level 2 01/29/18 12:00 Intake & Output 01/28/18 01/29/18 01/29/18 23:59 11:59 23:59 Intake Total 3450.0 / 3450.0 2277.5 / 2277.5 1470 / 1470 Output Total 1525 / 1525 1955 / 1955 1375 / 1375 Balance 1925.0 / 1925.0 322.5 / 322.5 95 / 95 Weight 114.3 kg Intake: IV 2420.0 / 2420.0 2037.5 / 2037.5 570 / 570 Oral 1030 / 1030 240 / 240 900 / 900 Output: Drainage 200 / 200 225 / 225 245 / 245 Right Lateral Abdomen 200 / 200 225 / 225 245 / 245 Urine 1100 / 1100 700 / 700 840 / 840 Post Void Residual 15 / 15 Stool 225 / 225 1030 / 1030 275 / 275 Other: Urine Color Yellow Light Cat Yellow Urine Appearance Cloudy Clear Clear Sediment Urine Odor None Comment ruiz to gravity wth clearer looking urine today than yesterday Stool Size Small Moderate Stool Characteristics Soft Soft Liquid Black Brown Voiding Methods Urinal Laboratory Results WBC 10.75 k/cumm (4.4-10.8) 01/29/18 06:45 RBC 3.70 m/cumm (4.50-6.00) L 01/29/18 06:45 Hgb 8.0 g/dL (13.5-17.5) L 01/29/18 06:45 Hct 26.1 % (40.0-50.0) L 01/29/18 06:45 MCV 70.5 fL (80-95) L 01/29/18 06:45 MCH 21.6 pg (27.0-33.0) L 01/29/18 06:45 MCHC 30.7 g/dL (32.0-36.0) L 01/29/18 06:45 RDW 20.4 % (11.8-14.1) H 01/29/18 06:45 Plt Count 551 x1000/uL (130-400) H 01/29/18 06:45 MPV 9.7 fL (8.0-11.0) 01/29/18 06:45 Immature Gran % 0.7 01/29/18 06:45 Neutrophils % 81.3 01/29/18 06:45 Lymphocytes % 8.6 01/29/18 06:45 Monocytes % 6.0 01/29/18 06:45 Eosinophils % 2.9 01/29/18 06:45 Basophils % 0.5 01/29/18 06:45 Absolute Neutrophils 8.76 k/cumm (1.2-6.7) H 01/29/18 06:45 Absolute Lymphocytes 0.92 k/cumm (1.2-3.4) L 01/29/18 06:45 Absolute Monocytes 0.64 k/cumm (0.11-0.7) 01/29/18 06:45 Absolute Eosinophils 0.31 k/cumm (0.0-0.7) 01/29/18 06:45 Absolute Basophils 0.05 k/cumm (0.0-0.2) 01/29/18 06:45 Differential Comment Rbc morph reviewed 01/29/18 06:45 RBC Morphology See below 01/29/18 06:45 Polychromasia Present 01/28/18 06:30 Hypochromasia 3+ 01/29/18 06:45 Poikilocytosis 2+ 01/28/18 06:30 Anisocytosis 3+ 01/29/18 06:45 Microcytosis 3+ 01/29/18 06:45 Tear Drop Cells 2+ 01/29/18 06:45 Ovalocytes 2+ 01/28/18 06:30 PT 11.5 sec (9.3-10.8) H 01/26/18 17:28 INR 1.2 (1.0-3.5) 01/26/18 17:28 APTT 26.2 sec (21.0-31.4) 01/26/18 17:28 Sodium 140 mmol/L (136-145) 01/29/18 06:45 Potassium 5.0 mmol/L (3.5-5.1) 01/29/18 06:45 Chloride 110 mmol/L (98-107) H 01/29/18 06:45 Carbon Dioxide 18.4 mmol/L (21.0-32.0) L 01/29/18 06:45 Anion Gap 11.6 mmol/L (3-11) H 01/29/18 06:45 BUN 54 mg/dL (7-18) H D 01/29/18 06:45 Creatinine 2.42 mg/dL (0.70-1.30) H D 01/29/18 06:45 Estimated GFR/1.73 m2 27.68 (mL/min/1.73m2) 01/29/18 06:45 Glucose 252 mg/dL (70-100) H 01/29/18 06:45 Lactate 0.8 mmol/L (0.6-1.4) 01/27/18 14:35 Calcium 8.4 mg/dL (8.5-10.1) L 01/29/18 06:45 Magnesium 1.6 mg/dL (1.8-2.4) L 01/29/18 06:45 Total Bilirubin 0.3 mg/dL (0.2-1.0) 01/27/18 06:10 AST 10 U/L (15-37) L 01/27/18 06:10 ALT 17 U/L (12-78) 01/27/18 06:10 Alkaline Phosphatase 316 U/L (46-116) H 01/27/18 06:10 Creatine Kinase 17 U/L (39-308) L 01/27/18 06:10 Troponin I < 0.02 ng/mL (0.00-0.06) 01/26/18 17:28 C-Reactive Protein 6.98 mg/dL (0.0-0.3) H 01/28/18 06:30 Total Protein 7.4 g/dL (6.4-8.2) 01/27/18 06:10 Albumin 2.1 g/dL (3.4-5.0) L 01/27/18 06:10 TSH 0.54 uIU/mL (0.358-3.74) 01/26/18 17:15 Urine Color Yellow (Yellow) 01/26/18 17:50 Urine Clarity Cloudy 01/26/18 17:50 Urine pH 5.5 (5-8) 01/26/18 17:50 Ur Specific [place] 1.025 (1.005-1.025) 01/26/18 17:50 Urine Protein 100 mg/dL (Negative) H 01/26/18 17:50 Urine Ketones Trace mg/dL (Negative) H 01/26/18 17:50 Urine Blood Large (Negative) H 01/26/18 17:50 Urine Nitrite Negative (Negative) 01/26/18 17:50 Urine Bilirubin Small (Negative) H 01/26/18 17:50 Urine Urobilinogen 0.2 EU/dL (Up TO 0.2) 01/26/18 17:50 Ur Leukocyte Esterase Large (Negative) H 01/26/18 17:50 Urine RBC Not Applicable 01/26/18 17:50 Urine WBC >50 HPF (0-5) 01/26/18 17:50 Ur Epithelial Cells Not Applicable 01/26/18 17:50 Urine Crystals Not Applicable 01/26/18 17:50 Urine Bacteria Not Applicable 01/26/18 17:50 Urine Mucus Not Applicable 01/26/18 17:50 Urine Other Few yeast (Negative) 01/26/18 17:50 Ur Culture Indicated? Yes 01/26/18 17:50 Urine Glucose Negative mg/dL (Negative) 01/26/18 17:50 Random Vancomycin 11.7 ug/mL (5.0-10.0) H* 01/28/18 06:30 Blood cx x1 01/26/18: NGTD Blood cx x 1 01/26/18: MRSA, corynebacterium spp. Blood cx x 2 01/28/18: NGTD
[2018-01-29] MEDS: Hydrocortisone SOD SUC. 100 MG VIAL 10 MG IVP (20:47)
[2018-01-29] MEDS: cloNIDine 0.1 MG TAB 0.3 MG PO (20:51)
[2018-01-29] MEDS: Insulin Glargine 300 UNITS/3 ML PEN 10 UNITS SC (21:28)
[2018-01-29] MEDS: risperiDONE 1 MG TAB PO (21:34)
[2018-01-30 00:45] VITALS: BP 154/77; PULSE 70; RESP 18; TEMP 37.5; O2SAT 96
[2018-01-30] MEDS: Hydrocortisone SOD SUC. 100 MG VIAL 10 MG IVP ×2 (00:57→09:38)
[2018-01-30 03:17] VITALS: BP 174/89; PULSE 71; RESP 20; TEMP 37.6; O2SAT 96
[2018-01-30] MEDS: PIPERACILLIN/TAZO 2.25 GM in Normal Saline 50 ML IVPB ×3 (03:32→20:17)
[2018-01-30] MEDS: Normal Saline 1,000 ML 150 ML IV ×3 (05:41→23:48)
[2018-01-30] MEDS: Levothyroxine 50 MCG TAB PO (06:25)
[2018-01-30 07:49] LABS: Abs Immature Grans 0.11 k/cumm (0.0-0.09); Absolute Basophil Count 0.07 k/cumm (0.0-0.2); Absolute Lymphocyte Count 1.18 k/cumm (1.2-3.4); Absolute Neutrophil Count 9.78 k/cumm (1.2-6.7); Basophils % 0.5; Eosinophils % 8.2; HCT 25.3 % (40.0-50.0); HGB 7.7 g/dL (13.5-17.5); Immature Grans % 0.8; Mean Corp. HGB Concentration 30.4 g/dL (32.0-36.0); Mean Corpuscular Hemoglobin 21.7 pg (27.0-33.0); Mean Corpuscular Volume 71.3 fL (80-95); Mean Platelet Volume 9.7 fL (8.0-11.0); Monocytes % 6.9; Neutrophils % 74.6; Platelet Count 531 x1000/uL (130-400); RBC 3.55 m/cumm (4.50-6.00); RBC Distribution Width 20.3 % (11.8-14.1); White Blood Cell Count 13.11 k/cumm (4.4-10.8)
[2018-01-30 07:59] LABS: Anion Gap 9.6 mmol/L (3-11); BUN 42 mg/dL (7-18); C-Reactive Protein 2.31 mg/dL (0.0-0.3); CO2 19.4 mmol/L (21.0-32.0); CREATININE 1.79 mg/dL (0.70-1.30); Calcium 8.5 mg/dL (8.5-10.1); Chloride 113 mmol/L (98-107); Glucose 189 mg/dL (70-100); Potassium 4.7 mmol/L (3.5-5.1); Sodium 142 mmol/L (136-145)
[2018-01-30 08:05] VITALS: BP 211/97; PULSE 77; RESP 24; TEMP 37.7; O2SAT 95
[2018-01-30 08:05] LABS: Absolute Eosinophil Count 1.08 k/cumm (0.0-0.7)
[2018-01-30 08:10] LABS: Iron 17 ug/dL (50-175); Total Iron Binding Capacity 191 ug/dL (250-450); Transferrin Sat 9 % (20-55)
[2018-01-30 08:13] LABS: Ferritin 93 ng/mL (8-388); Magnesium 1.6 mg/dL (1.8-2.4)
[2018-01-30 08:17] LABS: Anisocytosis 2+; Diff Comment Diff Reviewed
[2018-01-30 08:18] LABS: Hypochromasia 3+; Microcytosis 3+; Ovalocytes 2+; Polychromasia Present
[2018-01-30 08:19] LABS: Poikilocytes 2+
--- NOTE | 2018-01-30 09:25 | PT.INTREAT ---
Date of service: 01/30/18 Time of Service: 09:25 PT Notes Inpatient Physical Therapy Treatment Note Date: 01/30/18 PRECAUTIONS:Fall, Contact SUBJECTIVE: Brendan states that he feels upset, that he a rough night last night, however, he is willing to participate in PT. OBJECTIVE: PAIN: No c/o pain BED MOBILITY/TRANSFERS Supine-sit: I Sit-stand: SBA Stand-sit: SBA GAIT Assistive Device: FWW Weight bearing: WBAT Assist: SBA Distance: 20' x2 THEREX: Completed a lower extremity strengthening program in a seated position, as per flow sheet. Patient was able to tolerate a slight progression in his program today, modifications made to repetitions are noted on flow sheet. ASSESSMENT: Patient tolerated session well, without complaint. Patient would benefit from continued strengthening as well as gait and transfer training for improved mobility and ability to perform daily functional tasks. PLAN: Continue with PT's POC TREATMENT CODE/TIME: 25 minutes; TA/TP
[2018-01-30] MEDS: Insulin Glargine 300 UNITS/3 ML PEN 20 UNITS SC (09:39)
[2018-01-30] MEDS: Omega-3 Fatty Acids 1000 MG CAP PO (09:40)
[2018-01-30] MEDS: Sertraline 25 MG TAB PO (09:40)
[2018-01-30] MEDS: Cyanocobalamin 500 MCG TAB 1000 MCG PO (09:40)
[2018-01-30] MEDS: Omeprazole 20 MG CAPCR PO (09:40)
[2018-01-30] MEDS: Insulin Aspart 300 UNITS/3 ML PEN SC ×3 (09:40→16:59)
[2018-01-30] MEDS: Venlafaxine 75 MG TAB 37.5 MG PO ×3 (09:41→20:33)
[2018-01-30] MEDS: Multivitamin w/Minerals TAB 1 TAB PO (09:42)
[2018-01-30] MEDS: cloNIDine 0.1 MG TAB 0.3 MG PO ×3 (09:42→20:34)
[2018-01-30] MEDS: carBAMazepine 100 MG CHEW PO ×3 (09:42→20:34)
[2018-01-30] MEDS: Ferrous Sulfate 325 MG TAB PO ×2 (09:42→20:37)
[2018-01-30] MEDS: Aspirin E.C. 81 MG TABEC PO ×2 (09:42→20:32)
[2018-01-30] MEDS: amLODIPine 5 MG TAB 10 MG PO (09:42)
[2018-01-30] MEDS: Carvedilol 6.25 MG TAB PO ×2 (09:42→20:33)
[2018-01-30] MEDS: Folic Acid 1 MG TAB PO (09:43)
[2018-01-30] MEDS: Heparin 5,000 UNITS/ML VIAL 5000 UNITS SC ×2 (09:43→20:34)
[2018-01-30 09:59] LABS: Vancomycin, Trough 15.9 ug/mL (10.0-20.0)
--- NOTE | 2018-01-30 10:02 | PDOC.CMPRO ---
Care Management Progress Note S/O: KATELYN spoke with Isela of Admissions at the [facility]. Isela reported Brendan would require a single room due to being MRSA positive. The facility will need to re-arrange rooms to accomodate this and will be unable to take Brendan over the weekend if he is medically ready. Brendan remains on Vanco at this time and may require a KELLEE per MD due to presence of new heart murmur. Brendan continues to be treated with IV ABX for Sepsis with positive MRSA blood cultures as well as IVF for CKD. A: 57 year old male admitted to [facility] 01/26/18 for Hypotension, Dehydration, JESUS on CKD, UTI P: Brendan will return to the [facility] when ready per MD. He will transport via the [facility] W/C van. The facility will manage his further needs.
[2018-01-30] MEDS: VANCOMYCIN 1,000 MG in Normal Saline 250 ML 250 MG IV (10:26)
--- NOTE | 2018-01-30 10:55 | W.INDIABCONS ---
Date of service: 01/30/18 Time of Service: 10:56 Diabetes Inpatient Consult DESCRIPTION/ASSESSMENT: Appreciate diabetes consult for Brendan Corley who is hospitalized with urosepsis and a foot ulcer. BMI 32 A1c 6.8 eGFR now 39 up from 17. Blood sugars this hospitalization have been above 200 after day and by bedtime in 300s. Have watched impact of his Lantus dose increase now at his usual dose of 30units daily, here split 20u AM and 10u PM with an improved fasting blood sugar of 195 this AM. He receives resistant insulin correction with meals. He is eating ~30 grams carbohydrate per meal. He currently receives over 30units mealtime insulin as correction per day. It is unclear his mealtime insulin dose in his usual life. Brendan has his diabetes care from the nursing staff at his [facility] care facility and admits he does no self management. INTERVENTION: Given his new basal insulin dose, will follow daytime effect on blood sugars. Possible addition of mealtime insulin for food if improved glycemic control is desired. No further intervention suggested at this time. PLAN: Will follow blood sugars. Time Spent in Nutritional Counseling and Treatment: gilson
--- NOTE | 2018-01-30 11:09 | CMPROGNOTE_ITS ---
Care Management Progress Note S/O: KATELYN spoke with Isela of Admissions at the [facility]. Isela reported Brendan would require a single room due to being MRSA positive. The facility will need to re- arrange rooms to accomodate this and will be unable to take Brendan over the weekend if he is medically ready. Brendan remains on Vanco at this time and may require a KELLEE per MD due to presence of new heart murmur. Brendan continues to be treated with IV ABX for Sepsis with positive MRSA blood cultures as well as IVF for CKD. A: 57 year old male admitted to [facility] 01/26/18 for Hypotension, Dehydration, JESUS on CKD, UTI P: Brendan will return to the [facility] when ready per MD. He will transport via the [facility] W[facility]C van. The facility will manage his further needs.
--- NOTE | 2018-01-30 11:25 | DM INPTCON_ITS ---
Date of service: 01/30/18 Time of Service: 10:56 Diabetes Inpatient Consult DESCRIPTION/ASSESSMENT: Appreciate diabetes consult for Brendan Corley who is hospitalized with urosepsis and a foot ulcer. BMI 32 A1c 6.8 eGFR now 39 up from 17. Blood sugars this hospitalization have been above 200 after day and by bedtime in 300s. Have watched impact of his Lantus dose increase now at his usual dose of 30units daily, here split 20u AM and 10u PM with an improved fasting blood sugar of 195 this AM. He receives resistant insulin correction with meals. He is eating ~30 grams carbohydrate per meal. He currently receives over 30units mealtime insulin as correction per day. It is unclear his mealtime insulin dose in his usual life. 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 INTERVENTION: Given his new basal insulin dose, will follow daytime effect on blood sugars. Possible addition of mealtime insulin for food if improved glycemic control is desired. No further intervention suggested at this time. PLAN: Will follow blood sugars. Time Spent in Nutritional Counseling and Treatment: gilson
[2018-01-30 11:50] VITALS: BP 167/73; PULSE 63; RESP 18; TEMP 37.4; O2SAT 95
[2018-01-30] MEDS: MAGNESIUM SULFATE 2 GM/50 ML BAG IVPB (13:20)
--- NOTE | 2018-01-30 15:03 | CHAPLAIN ---
I visited with Brendan yesterday. He was talking about making plans to buy a house in [place] if his nephew would agree to be his caregiver and get back to take care Brendan. Then Brendan would have a house and his nephew would be employed, Brendan said. He said he has a difficult roommate at the [facility] for he likes being here where he doesn't have to share a room. The told me that he know fewer nurses on Med/Surg than in the ICU, but he's getting to know them.
--- NOTE | 2018-01-30 15:04 | PT.INNT ---
Date of service: 01/30/18 Time of Service: 15:04 PT Notes PHYSICAL THERAPY NOTE 01/30/18 Attempted to see patient for session, pt deferred wanting to sleep. Agreeable to session in am Yolanda Chang PT
[2018-01-30 15:46] VITALS: BP 188/88; PULSE 68; RESP 20; TEMP 37.8; O2SAT 94
--- NOTE | 2018-01-30 18:50 | W.PM.PROGNOT ---
Date of Service Date of service: 01/30/18 Time of Service: 15:00 Assessment and Plan (1) Sepsis: Current visit: Yes Status: Acute With septic shock on presentation, now resolved - however, fever curve and leucocytosis are worsening. WBC could perhaps be explained by steroids, but rising temperatures are concerning. Blood cx from admission are positive for MRSA in 1 set (2 bottles). Murmur is new. On Vancomycin, Zosyn Day3. Continue both for now, reculture blood. Will need KELLEE, per [facility] ID - I ordered it for Friday. (2) Complicated UTI (urinary tract infection): Current visit: Yes Status: Suspected I am no longer sure this diagnosis is real. Urine C&S is growing yeast - no signs of fungus ball/systemic fungemia. Passed voiding trial. (3) Adrenal insufficiency: Current visit: No Status: Chronic Acute on chronic, now appears to be at baseline. Prednisone weaned to baseline. (4) Toxic metabolic encephalopathy: Current visit: No Status: Acute Resolved. Likely in setting of sepsis as well as JESUS and encephalopathy due to buildup of renally-cleared medications. (5) Acute on chronic kidney failure: Current visit: Yes Status: Acute With significant improvement yet again. Potassium normalized. Continue IVF and to treat underlying infection. Monitor strict I/O. Renal diet. (6) Hyperkalemia: Current visit: Yes Status: Resolved Resolved (7) Diabetic foot ulcer: Current visit: Yes Status: Chronic Wound care per Dr Ashford. Continue broad spectrum antibiotics. (8) Diabetes mellitus type 2, controlled: Current visit: No Status: Chronic Continue current doses of basal bolus insulin - we are tapering steroids. (9) Dehydration: Current visit: Yes Status: Acute Continue IVF (10) Conjunctivitis: Current visit: Yes Status: Acute Continue ciprofloxacin eye drops (11) Hypothyroidism: Current visit: No Status: Chronic Continue synthroid (12) Rheumatoid arthritis: Current visit: No Status: Chronic At baseline dose of prednisone. Restarting neurontin. (13) Crohns disease: Current visit: No Status: Chronic No evidence of a flare at this time. (14) Ambulatory dysfunction: Current visit: Yes Status: Acute PT/OT on board (15) Discharge planning issues: Current visit: Yes Status: Acute From [facility] and is expected to return there on discharge. However, may have to complete antibiotics at [facility] (may have to be made swing-bed status, once better). Will need KELLEE. (16) DVT prophylaxis: Current visit: No Status: Acute Continue heparin 5,000 iu SC BID Subjective Interval history since last seen: The patient denied any dizziness, chest pain, shortness of breath, nausea, vomiting. He reported difficulty sleeping and requested melatonin. Exam Narrative Exam Narrative: General: Obese middle-aged male, A&Ox3, in bed, very alert and conversant Neurological: A&Ox3, no focal deficits Psychiatric: calm, appropriate, cooperative, at his baseline Skin: R foot dressed - c/d/i; L great toe with a scab, does not appear infected HEENT: EOMI, MMM, very poor dentition, no JVD Cardiovascular: RRR, +systolic ejection murmur Lungs: CTAB/diminished Gastrointestinal: abdomen soft, nontender, nondistended; cholecystostomy drain in place - draining nonpurulent fluid; Ostomy in place. Genitourinary: no ruiz Extremities: wearing BO stockings; R foot dressed; 1+ pedal pulse LLE; no clubbing/cyanosis, trace edema Objective Objective Clinical Data: Abnormal lab results 01/30/18 01/30/18 01/30/18 Range/Units 07:10 07:10 07:10 WBC (4.4-10.8) k/cumm RBC (4.50-6.00) m/cumm Hgb (13.5-17.5) g/dL Hct (40.0-50.0) % MCV (80-95) fL MCH (27.0-33.0) pg MCHC (32.0-36.0) g/dL RDW (11.8-14.1) % Plt Count (130-400) x1000/uL Absolute Neutrophils (1.2-6.7) k/cumm Absolute Lymphocytes (1.2-3.4) k/cumm Absolute Monocytes (0.11-0.7) k/cumm Absolute Eosinophils (0.0-0.7) k/cumm Chloride 113 H (98-107) mmol/L Carbon Dioxide 19.4 L (21.0-32.0) mmol/L BUN 42 H D (7-18) mg/dL Creatinine 1.79 H (0.70-1.30) mg/dL Glucose 189 H (70-100) mg/dL Magnesium 1.6 L (1.8-2.4) mg/dL Iron 17 L (50-175) ug/dL TIBC 191 L (250-450) ug/dL Transferrin % Sat 9 L (20-55) % C-Reactive Protein 2.31 H (0.0-0.3) mg/dL 01/30/18 Range/Units 07:10 WBC 13.11 H (4.4-10.8) k/cumm RBC 3.55 L (4.50-6.00) m/cumm Hgb 7.7 L (13.5-17.5) g/dL Hct 25.3 L (40.0-50.0) % MCV 71.3 L (80-95) fL MCH 21.7 L (27.0-33.0) pg MCHC 30.4 L (32.0-36.0) g/dL RDW 20.3 H (11.8-14.1) % Plt Count 531 H (130-400) x1000/uL Absolute Neutrophils 9.78 H (1.2-6.7) k/cumm Absolute Lymphocytes 1.18 L (1.2-3.4) k/cumm Absolute Monocytes 0.90 H (0.11-0.7) k/cumm Absolute Eosinophils 1.08 H (0.0-0.7) k/cumm Chloride (98-107) mmol/L Carbon Dioxide (21.0-32.0) mmol/L BUN (7-18) mg/dL Creatinine (0.70-1.30) mg/dL Glucose (70-100) mg/dL Magnesium (1.8-2.4) mg/dL Iron (50-175) ug/dL TIBC (250-450) ug/dL Transferrin % Sat (20-55) % C-Reactive Protein (0.0-0.3) mg/dL Vital Signs Temperature 37.8 C H 01/30/18 15:46 Temperature Source Tympanic 01/30/18 15:46 Pulse 68 01/30/18 15:46 Pulse Rhythm Regular 01/30/18 11:02 Pulse 73 01/28/18 18:00 Respiratory Rate 20 01/30/18 15:46 Respiratory Effort 01/30/18 11:02 Respiratory Depth Deep 01/30/18 11:02 Respiratory Pattern Normal 01/30/18 11:02 Blood Pressure 188/88 H 01/30/18 15:46 Blood Pressure Mean 94 01/28/18 17:14 Blood Pressure Position Supine 01/28/18 16:55 Pulse Oximetry 94 L 01/30/18 15:46 Oxygen Delivery Method Room Air 01/30/18 15:46 Oxygen Flow Rate 0 01/30/18 15:46 Pain Level 0 01/30/18 03:17 Comment 01/30/18 08:05 Intake & Output 01/29/18 01/30/18 01/30/18 23:59 11:59 23:59 Intake Total 2800 / 2800 765 / 765 300 / 300 Output Total 2425 / 2425 1380 / 1380 100 / 100 Balance 375 / 375 -615 / -615 200 / 200 Weight 111.2 kg Intake: IV 1420 / 1420 765 / 765 300 / 300 Oral 1380 / 1380 Output: Drainage 395 / 395 210 / 210 Right Lateral Abdomen 395 / 395 210 / 210 Urine 1340 / 1340 720 / 720 100 / 100 Post Void Residual 15 / 15 Stool 675 / 675 450 / 450 Other: Urine Color Yellow Pale Light Cat Urine Appearance Clear Clear Clear Urine Odor None None Voiding Methods Urinal Urinal Urinal Laboratory Results WBC 13.11 k/cumm (4.4-10.8) H 01/30/18 07:10 RBC 3.55 m/cumm (4.50-6.00) L 01/30/18 07:10 Hgb 7.7 g/dL (13.5-17.5) L 01/30/18 07:10 Hct 25.3 % (40.0-50.0) L 01/30/18 07:10 MCV 71.3 fL (80-95) L 01/30/18 07:10 MCH 21.7 pg (27.0-33.0) L 01/30/18 07:10 MCHC 30.4 g/dL (32.0-36.0) L 01/30/18 07:10 RDW 20.3 % (11.8-14.1) H 01/30/18 07:10 Plt Count 531 x1000/uL (130-400) H 01/30/18 07:10 MPV 9.7 fL (8.0-11.0) 01/30/18 07:10 Immature Gran % 0.8 01/30/18 07:10 Neutrophils % 74.6 01/30/18 07:10 Lymphocytes % 9.0 01/30/18 07:10 Monocytes % 6.9 01/30/18 07:10 Eosinophils % 8.2 01/30/18 07:10 Basophils % 0.5 01/30/18 07:10 Absolute Neutrophils 9.78 k/cumm (1.2-6.7) H 01/30/18 07:10 Absolute Lymphocytes 1.18 k/cumm (1.2-3.4) L 01/30/18 07:10 Absolute Monocytes 0.90 k/cumm (0.11-0.7) H 01/30/18 07:10 Absolute Eosinophils 1.08 k/cumm (0.0-0.7) H 01/30/18 07:10 Absolute Basophils 0.07 k/cumm (0.0-0.2) 01/30/18 07:10 Differential Comment Diff reviewed 01/30/18 07:10 RBC Morphology See below 01/30/18 07:10 Polychromasia Present 01/30/18 07:10 Hypochromasia 3+ 01/30/18 07:10 Poikilocytosis 2+ 01/30/18 07:10 Anisocytosis 2+ 01/30/18 07:10 Microcytosis 3+ 01/30/18 07:10 Tear Drop Cells 2+ 01/29/18 06:45 Ovalocytes 2+ 01/30/18 07:10 PT 11.5 sec (9.3-10.8) H 01/26/18 17:28 INR 1.2 (1.0-3.5) 01/26/18 17:28 APTT 26.2 sec (21.0-31.4) 01/26/18 17:28 Sodium 142 mmol/L (136-145) 01/30/18 07:10 Potassium 4.7 mmol/L (3.5-5.1) 01/30/18 07:10 Chloride 113 mmol/L (98-107) H 01/30/18 07:10 Carbon Dioxide 19.4 mmol/L (21.0-32.0) L 01/30/18 07:10 Anion Gap 9.6 mmol/L (3-11) 01/30/18 07:10 BUN 42 mg/dL (7-18) H D 01/30/18 07:10 Creatinine 1.79 mg/dL (0.70-1.30) H 01/30/18 07:10 Estimated GFR/1.73 m2 39.20 (mL/min/1.73m2) 01/30/18 07:10 Glucose 189 mg/dL (70-100) H 01/30/18 07:10 Lactate 0.8 mmol/L (0.6-1.4) 01/27/18 14:35 Calcium 8.5 mg/dL (8.5-10.1) 01/30/18 07:10 Magnesium 1.6 mg/dL (1.8-2.4) L 01/30/18 07:10 Iron 17 ug/dL (50-175) L 01/30/18 07:10 TIBC 191 ug/dL (250-450) L 01/30/18 07:10 Transferrin % Sat 9 % (20-55) L 01/30/18 07:10 Ferritin 93 ng/mL (8-388) 01/30/18 07:10 Total Bilirubin 0.3 mg/dL (0.2-1.0) 01/27/18 06:10 AST 10 U/L (15-37) L 01/27/18 06:10 ALT 17 U/L (12-78) 01/27/18 06:10 Alkaline Phosphatase 316 U/L (46-116) H 01/27/18 06:10 Creatine Kinase 17 U/L (39-308) L 01/27/18 06:10 Troponin I < 0.02 ng/mL (0.00-0.06) 01/26/18 17:28 C-Reactive Protein 2.31 mg/dL (0.0-0.3) H 01/30/18 07:10 Total Protein 7.4 g/dL (6.4-8.2) 01/27/18 06:10 Albumin 2.1 g/dL (3.4-5.0) L 01/27/18 06:10 TSH 0.54 uIU/mL (0.358-3.74) 01/26/18 17:15 Urine Color Yellow (Yellow) 01/26/18 17:50 Urine Clarity Cloudy 01/26/18 17:50 Urine pH 5.5 (5-8) 01/26/18 17:50 Ur Specific [place] 1.025 (1.005-1.025) 01/26/18 17:50 Urine Protein 100 mg/dL (Negative) H 01/26/18 17:50 Urine Ketones Trace mg/dL (Negative) H 01/26/18 17:50 Urine Blood Large (Negative) H 01/26/18 17:50 Urine Nitrite Negative (Negative) 01/26/18 17:50 Urine Bilirubin Small (Negative) H 01/26/18 17:50 Urine Urobilinogen 0.2 EU/dL (Up TO 0.2) 01/26/18 17:50 Ur Leukocyte Esterase Large (Negative) H 01/26/18 17:50 Urine RBC Not Applicable 01/26/18 17:50 Urine WBC >50 HPF (0-5) 01/26/18 17:50 Ur Epithelial Cells Not Applicable 01/26/18 17:50 Urine Crystals Not Applicable 01/26/18 17:50 Urine Bacteria Not Applicable 01/26/18 17:50 Urine Mucus Not Applicable 01/26/18 17:50 Urine Other Few yeast (Negative) 01/26/18 17:50 Ur Culture Indicated? Yes 01/26/18 17:50 Urine Glucose Negative mg/dL (Negative) 01/26/18 17:50 Vancomycin Trough 15.9 ug/mL (10.0-20.0) 01/30/18 09:25 Random Vancomycin 11.7 ug/mL (5.0-10.0) H* 01/28/18 06:30 Blood cx x 2 01/26/18: MRSA in 1 set (2 bottles), NGTD in another. 1st set is also growing Corynebacterium spp. Blood cx x 2 01/28/18: NGTD C. Diff negative. Urine C&S 01/26/18: yeast
--- NOTE | 2018-01-30 19:18 | NUR.NOTE ---
Nursing Note:01/29/2018 approximately 2200 patient called myself and JAKE Garcia into the room separately to apologize to both of of for his mean behavior towards us. He explained to me that he is very unhappy about his situation because just 7 years ago he was out hiking and doing things he loved. He apologized for being so angry, told me that was appreciative that I had done everything he asked of me. He was pleasant and appreciative for the rest of the night. He would also then swear and be short with some other staff members.
[2018-01-30 20:09] VITALS: BP 185/90; PULSE 72; RESP 18; TEMP 37.6; O2SAT 95
[2018-01-30] MEDS: Gabapentin 300 MG CAP PO (20:33)
[2018-01-30] MEDS: risperiDONE 1 MG TAB 3 MG PO (22:30)
[2018-01-30] MEDS: Melatonin 3 MG TAB 9 MG PO (22:30)
[2018-01-31] VITALS (11 sets, daily range): BP systolic 145–198; BP diastolic 75–101; PULSE 58–90; RESP 18–32; TEMP 37.4–38; O2SAT 91–98
[2018-01-31] MEDS: PIPERACILLIN/TAZO 2.25 GM in Normal Saline 50 ML IVPB ×2 (04:14→12:40)
[2018-01-31] MEDS: Levothyroxine 50 MCG TAB PO (05:40)
[2018-01-31 06:35] LABS: Abs Immature Grans 0.09 k/cumm (0.0-0.09); Absolute Basophil Count 0.05 k/cumm (0.0-0.2); Absolute Eosinophil Count 1.55 k/cumm (0.0-0.7); Absolute Lymphocyte Count 1.21 k/cumm (1.2-3.4); Absolute Monocyte Count 0.99 k/cumm (0.11-0.7); Basophils % 0.4; Eosinophils % 11.4; HCT 25.9 % (40.0-50.0); HGB 7.8 g/dL (13.5-17.5); Immature Grans % 0.7; Lymphocytes % 8.9; Mean Corp. HGB Concentration 30.1 g/dL (32.0-36.0); Mean Corpuscular Hemoglobin 21.5 pg (27.0-33.0); Mean Corpuscular Volume 71.5 fL (80-95); Mean Platelet Volume 9.3 fL (8.0-11.0); Monocytes % 7.3; Neutrophils % 71.3; Platelet Count 510 x1000/uL (130-400); RBC 3.62 m/cumm (4.50-6.00); RBC Distribution Width 20.7 % (11.8-14.1); White Blood Cell Count 13.63 k/cumm (4.4-10.8)
[2018-01-31 06:47] LABS: Anion Gap 13.4 mmol/L (3-11); BUN 34 mg/dL (7-18); C-Reactive Protein 6.02 mg/dL (0.0-0.3); CO2 16.6 mmol/L (21.0-32.0); CREATININE 1.62 mg/dL (0.70-1.30); Calcium 8.6 mg/dL (8.5-10.1); Chloride 112 mmol/L (98-107); Estimated GFR 43.98 (mL/min/1.73m2); Glucose 155 mg/dL (70-100); Magnesium 1.7 mg/dL (1.8-2.4); Potassium 4.6 mmol/L (3.5-5.1); Sodium 142 mmol/L (136-145)
[2018-01-31] MEDS: Normal Saline 1,000 ML 150 ML IV ×2 (07:00→16:50)
[2018-01-31 07:14] LABS: Absolute Neutrophil Count 9.72 k/cumm (1.2-6.7)
[2018-01-31] MEDS: Albuterol 2.5 MG/3 ML INH SOLN VIAL UPD (08:02)
[2018-01-31 08:11] LABS: Anisocytosis 2+; Diff Comment Agrees w/ Instrument; Hypochromasia 3+; Microcytosis 3+; Ovalocytes 2+; Poikilocytes 2+
--- NOTE | 2018-01-31 08:14 | CMPROGNOTE_ITS ---
Care Management Progress Note S/O: Brendan was reviewed at interdisciplinary rounds; per MD he will require KELLEE likely on Friday and may require a down a back appointment at tertiary center for completion due to new heart murmur. CM will continue to follow and will meet to discuss Brendan's ongoing complex care concerns and discharge considerations. A: 57 year old male admitted to [facility] 01/26/18 for Hypotension, Dehydration, JESUS on CKD, UTI P: Per MD; KELLEE-likely Friday. 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 He will transport via the [facility] W/C van. The facility will manage his further needs.
[2018-01-31] MEDS: Insulin Glargine 300 UNITS/3 ML PEN 20 UNITS SC (09:45)
[2018-01-31] MEDS: Insulin Aspart 300 UNITS/3 ML PEN SC ×3 (09:45→17:55)
[2018-01-31] MEDS: Aspirin E.C. 81 MG TABEC PO ×2 (09:46→20:02)
[2018-01-31] MEDS: Folic Acid 1 MG TAB PO (09:46)
[2018-01-31] MEDS: Heparin 5,000 UNITS/ML VIAL 5000 UNITS SC ×2 (09:46→20:02)
[2018-01-31] MEDS: Multivitamin w/Minerals TAB 1 TAB PO (09:46)
[2018-01-31] MEDS: Omega-3 Fatty Acids 1000 MG CAP PO (09:47)
[2018-01-31] MEDS: Magnesium Oxide 400 MG TAB PO (09:47)
[2018-01-31] MEDS: Gabapentin 300 MG CAP PO ×3 (09:47→20:02)
[2018-01-31] MEDS: carBAMazepine 100 MG CHEW PO ×3 (09:47→20:04)
[2018-01-31] MEDS: Cyanocobalamin 500 MCG TAB 1000 MCG PO (09:47)
[2018-01-31] MEDS: Furosemide 40 MG TAB PO (09:47)
[2018-01-31] MEDS: Venlafaxine 75 MG TAB 37.5 MG PO ×3 (09:47→20:03)
[2018-01-31] MEDS: Sertraline 25 MG TAB PO (09:48)
[2018-01-31] MEDS: Omeprazole 20 MG CAPCR PO (09:48)
[2018-01-31] MEDS: predniSONE 10 MG TAB PO (09:48)
[2018-01-31] MEDS: cloNIDine 0.1 MG TAB 0.3 MG PO ×3 (09:49→20:03)
[2018-01-31] MEDS: amLODIPine 5 MG TAB 10 MG PO (09:49)
[2018-01-31] MEDS: Ferrous Sulfate 325 MG TAB PO ×2 (09:49→20:03)
[2018-01-31] MEDS: Carvedilol 6.25 MG TAB PO ×2 (09:49→20:03)
[2018-01-31] MEDS: VANCOMYCIN 1,000 MG in Normal Saline 250 ML 166.67 MG IV (09:49)
--- NOTE | 2018-01-31 12:13 | PTTR_ITS ---
Date of service: 01/31/18 Time of Service: 11:25 PT Notes 01/31/18 S: Stated he is willing to get out of bed. Feeling okay today. O: Seen in room for ther ex as per flow sheet, consisting of seated hip abd/ adduction, seated marching, LAQs and ankle pumps x 20-25 reps each. Sat up on edge of bed for about 15 minutes. Attempted ambulation with FWW, but due to IV was unable to perform this activity today, so opted to have patient stand at bed side for approximately 2 minutes x 2 with SBA. Independent with supine to seated position and required only slight assist with LEs with going seated to supine. SBA only with sit to stand and stand to sit on edge of bed. A: Tolerated today ther ex well. SBA with standing at bed sit. Did not attempt ambulation due to IV lines and lunch arriving. P: Continue with ambulation with FWW and ther ex for improved ADL function. TA x 1, TP x 1, 11:25 to 11:50 ( 25 minutes ) Ro Nuñez, RAIL SPLITTER
--- NOTE | 2018-01-31 13:38 | W.PM.PROGNOT ---
Date of Service Date of service: 01/31/18 Time of Service: 13:38 Assessment and Plan (1) Sepsis: Current visit: No Status: Resolved blood cultures positive for MRSA with repeat cultures negative. still running temperatures of 38. will repeat blood cultures and continue vancomycin and zosyn. (2) JESUS (acute kidney injury): Current visit: Yes Status: Acute has resolved with IV fluids, his creatinine is at this baseline of 1.6-1.8. continue to avoid nephrotoxic drugs and renally dose medications (3) DVT prophylaxis: Current visit: No Status: Acute heparin subcu (4) Hypertension: Current visit: No Status: Chronic blood pressures have been controlled, continue amlodipine (5) Diabetes mellitus type 2, controlled: Current visit: No Status: Chronic continue blood sugar check and sliding scale coverage (6) Hypomagnesemia: Current visit: Yes Status: Acute replete and follow Subjective Interval history since last seen: 57 year old admitted with sepsis, with positive blood cultures on admission with MRSA. treated with broad spectrum antibiotics, still running temperatures of 38 and a new heart murmur. A TTE showed no evidence of vegetation. patient reports eating and drinking well, denies bowel or bladder issues. denies abdominal pain, dysuria or frequency. repeat blood cultures have been negative. Exam Const General: cooperative, disheveled (greasy hair) and ill appearing chronically Nutritional Appearance: overweight Orientation: alert HENMI Head: normal to inspection and atraumatic Resp Effort & Inspection: normal respiratory effort Auscultation: diminished lung sounds and no wheezes Cardio Rate: regular rate Rhythm: regular rhythm GI Inspection: normal to inspection Palpation: soft Auscultation: normal bowel sounds Extrem General: edema (bilateral upper and lower) Psych Appearance: disheveled Affect: blunted Attitude: cooperative Objective Objective Clinical Data: Abnormal lab results 01/31/18 01/31/18 Range/Units 06:17 06:17 WBC 13.63 H (4.4-10.8) k/cumm RBC 3.62 L (4.50-6.00) m/cumm Hgb 7.8 L (13.5-17.5) g/dL Hct 25.9 L (40.0-50.0) % MCV 71.5 L (80-95) fL MCH 21.5 L (27.0-33.0) pg MCHC 30.1 L (32.0-36.0) g/dL RDW 20.7 H (11.8-14.1) % Plt Count 510 H (130-400) x1000/uL Absolute Neutrophils 9.72 H (1.2-6.7) k/cumm Absolute Monocytes 0.99 H (0.11-0.7) k/cumm Absolute Eosinophils 1.55 H (0.0-0.7) k/cumm Chloride 112 H (98-107) mmol/L Carbon Dioxide 16.6 L (21.0-32.0) mmol/L Anion Gap 13.4 H (3-11) mmol/L BUN 34 H (7-18) mg/dL Creatinine 1.62 H (0.70-1.30) mg/dL Glucose 155 H (70-100) mg/dL Magnesium 1.7 L (1.8-2.4) mg/dL C-Reactive Protein 6.02 H (0.0-0.3) mg/dL Vital Signs Temperature 38.0 C H 01/31/18 11:55 Temperature Source Tympanic 01/31/18 11:55 Pulse 75 01/31/18 11:55 Pulse Rhythm Regular 01/31/18 11:53 Pulse 73 01/28/18 18:00 Respiratory Rate 32 H 01/31/18 11:55 Respiratory Effort 01/31/18 11:53 Respiratory Depth Shallow 01/31/18 11:53 Respiratory Pattern Tachypnea 01/31/18 11:53 Blood Pressure 193/93 H 01/31/18 11:55 Blood Pressure Mean 94 01/28/18 17:14 Blood Pressure Position Supine 01/28/18 16:55 Pulse Oximetry 97 01/31/18 11:55 Oxygen Delivery Method Nasal Cannula 01/31/18 11:55 Oxygen Flow Rate 2 01/31/18 11:55 Pain Level 0 01/31/18 11:55 Comment 01/31/18 11:55 Intake & Output 01/30/18 01/31/18 01/31/18 23:59 11:59 23:59 Intake Total 1350 / 1350 2685 / 2685 205 / 205 Output Total 725 / 725 550 / 550 120 / 120 Balance 625 / 625 2135 / 2135 85 / 85 Intake: IV 1350 / 1350 1725 / 1725 205 / 205 Oral 960 / 960 Output: Drainage 200 / 200 150 / 150 Right Lateral Abdomen 200 / 200 150 / 150 Urine 300 / 300 150 / 150 120 / 120 Stool 225 / 225 250 / 250 Other: Urine Color Light Cat Light Cat Yellow Urine Appearance Clear Clear Clear Urine Odor None None Comment Bed linens changed at this time. Voiding Methods Urinal Incontinent Urinal Laboratory Results WBC 13.63 k/cumm (4.4-10.8) H 01/31/18 06:17 RBC 3.62 m/cumm (4.50-6.00) L 01/31/18 06:17 Hgb 7.8 g/dL (13.5-17.5) L 01/31/18 06:17 Hct 25.9 % (40.0-50.0) L 01/31/18 06:17 MCV 71.5 fL (80-95) L 01/31/18 06:17 MCH 21.5 pg (27.0-33.0) L 01/31/18 06:17 MCHC 30.1 g/dL (32.0-36.0) L 01/31/18 06:17 RDW 20.7 % (11.8-14.1) H 01/31/18 06:17 Plt Count 510 x1000/uL (130-400) H 01/31/18 06:17 MPV 9.3 fL (8.0-11.0) 01/31/18 06:17 Immature Gran % 0.7 01/31/18 06:17 Neutrophils % 71.3 01/31/18 06:17 Lymphocytes % 8.9 01/31/18 06:17 Monocytes % 7.3 01/31/18 06:17 Eosinophils % 11.4 01/31/18 06:17 Basophils % 0.4 01/31/18 06:17 Absolute Neutrophils 9.72 k/cumm (1.2-6.7) H 01/31/18 06:17 Absolute Lymphocytes 1.21 k/cumm (1.2-3.4) 01/31/18 06:17 Absolute Monocytes 0.99 k/cumm (0.11-0.7) H 01/31/18 06:17 Absolute Eosinophils 1.55 k/cumm (0.0-0.7) H 01/31/18 06:17 Absolute Basophils 0.05 k/cumm (0.0-0.2) 01/31/18 06:17 Differential Comment Agrees w/ instrument 01/31/18 06:17 RBC Morphology See below 01/31/18 06:17 Polychromasia Present 01/30/18 07:10 Hypochromasia 3+ 01/31/18 06:17 Poikilocytosis 2+ 01/31/18 06:17 Anisocytosis 2+ 01/31/18 06:17 Microcytosis 3+ 01/31/18 06:17 Tear Drop Cells 2+ 01/29/18 06:45 Ovalocytes 2+ 01/31/18 06:17 PT 11.5 sec (9.3-10.8) H 01/26/18 17:28 INR 1.2 (1.0-3.5) 01/26/18 17:28 APTT 26.2 sec (21.0-31.4) 01/26/18 17:28 Sodium 142 mmol/L (136-145) 01/31/18 06:17 Potassium 4.6 mmol/L (3.5-5.1) 01/31/18 06:17 Chloride 112 mmol/L (98-107) H 01/31/18 06:17 Carbon Dioxide 16.6 mmol/L (21.0-32.0) L 01/31/18 06:17 Anion Gap 13.4 mmol/L (3-11) H 01/31/18 06:17 BUN 34 mg/dL (7-18) H 01/31/18 06:17 Creatinine 1.62 mg/dL (0.70-1.30) H 01/31/18 06:17 Estimated GFR/1.73 m2 43.98 (mL/min/1.73m2) 01/31/18 06:17 Glucose 155 mg/dL (70-100) H 01/31/18 06:17 Lactate 0.8 mmol/L (0.6-1.4) 01/27/18 14:35 Calcium 8.6 mg/dL (8.5-10.1) 01/31/18 06:17 Magnesium 1.7 mg/dL (1.8-2.4) L 01/31/18 06:17 Iron 17 ug/dL (50-175) L 01/30/18 07:10 TIBC 191 ug/dL (250-450) L 01/30/18 07:10 Transferrin % Sat 9 % (20-55) L 01/30/18 07:10 Ferritin 93 ng/mL (8-388) 01/30/18 07:10 Total Bilirubin 0.3 mg/dL (0.2-1.0) 01/27/18 06:10 AST 10 U/L (15-37) L 01/27/18 06:10 ALT 17 U/L (12-78) 01/27/18 06:10 Alkaline Phosphatase 316 U/L (46-116) H 01/27/18 06:10 Creatine Kinase 17 U/L (39-308) L 01/27/18 06:10 Troponin I < 0.02 ng/mL (0.00-0.06) 01/26/18 17:28 C-Reactive Protein 6.02 mg/dL (0.0-0.3) H 01/31/18 06:17 Total Protein 7.4 g/dL (6.4-8.2) 01/27/18 06:10 Albumin 2.1 g/dL (3.4-5.0) L 01/27/18 06:10 TSH 0.54 uIU/mL (0.358-3.74) 01/26/18 17:15 Urine Color Yellow (Yellow) 01/26/18 17:50 Urine Clarity Cloudy 01/26/18 17:50 Urine pH 5.5 (5-8) 01/26/18 17:50 Ur Specific [place] 1.025 (1.005-1.025) 01/26/18 17:50 Urine Protein 100 mg/dL (Negative) H 01/26/18 17:50 Urine Ketones Trace mg/dL (Negative) H 01/26/18 17:50 Urine Blood Large (Negative) H 01/26/18 17:50 Urine Nitrite Negative (Negative) 01/26/18 17:50 Urine Bilirubin Small (Negative) H 01/26/18 17:50 Urine Urobilinogen 0.2 EU/dL (Up TO 0.2) 01/26/18 17:50 Ur Leukocyte Esterase Large (Negative) H 01/26/18 17:50 Urine RBC Not Applicable 01/26/18 17:50 Urine WBC >50 HPF (0-5) 01/26/18 17:50 Ur Epithelial Cells Not Applicable 01/26/18 17:50 Urine Crystals Not Applicable 01/26/18 17:50 Urine Bacteria Not Applicable 01/26/18 17:50 Urine Mucus Not Applicable 01/26/18 17:50 Urine Other Few yeast (Negative) 01/26/18 17:50 Ur Culture Indicated? Yes 01/26/18 17:50 Urine Glucose Negative mg/dL (Negative) 01/26/18 17:50 Vancomycin Trough 15.9 ug/mL (10.0-20.0) 01/30/18 09:25 Random Vancomycin 11.7 ug/mL (5.0-10.0) H* 01/28/18 06:30
--- NOTE | 2018-01-31 14:23 | DI.RAD_ITS ---
SYMPTOM/DIAGNOSIS: FEVER AP AND LATERAL CHEST: Comparison is made with 26 Jan 2018. The AP view is poorly penetrated. The lateral view shows poor pulmonary inflation. There are again noted to be tiny bilateral pleural effusions. There is mild vascular prominence which appears somewhat improved when compared with the previous exam. No focal infiltrate is seen. IMPRESSION: Question of mild CHF.
--- NOTE | 2018-01-31 16:14 | DI.VRAD_ITS ---
EXAM: XR Chest, 2 Views EXAM DATE/TIME: 01/31/2018 2:24 PM CLINICAL HISTORY: 57 years old, male; Signs and symptoms; Fever TECHNIQUE: XR of the chest, 2 views. COMPARISON: CR XR CHEST 2V PA LATERAL 01/26/2018 6:29 PM FINDINGS: Minimal right pleural effusion. Slight right basilar atelectasis. No significant cardiomegaly. No other focal consolidations. IMPRESSION: Minimal right basilar atelectasis and pleural effusion. Dictated and Authenticated by: Marko Hu MD. Ordering:SARAH FARIA MD
[2018-01-31 17:28] LABS: Bilirubin Negative (Negative); Blood Small (Negative); Clarity Clear; Glucose Negative (Negative); Ketones Negative (Negative); Leukocyte Esterase Small (Negative); Nitrite Negative (Negative); Specific Gravity 1.015 (1.005-1.025); Urobilinogen 0.2 EU/dL (Up TO 0.2); pH 5.5 (5-8)
[2018-01-31 17:40] LABS: Epithelial Cells Rare HPF (Negative); RBC 0-2 (0-2); WBC >50 HPF (0-5)
[2018-01-31 17:41] LABS: Bacteria Few HPF (Negative)
[2018-01-31 17:42] LABS: C & S Indicated? Yes; Casts 0-2 Coarse Granular LPF (Negative); Mucus Trace (Negative)
[2018-01-31 17:43] LABS: Other Cells Few Transitional (Negative)
[2018-01-31] MEDS: PIPERACILLIN/TAZO 3.375 GM in Normal Saline 50 ML IVPB ×2 (17:56→23:12)
[2018-01-31 18:11] LABS: Crystals Negative HPF (Negative)
[2018-01-31] MEDS: risperiDONE 1 MG TAB 3 MG PO (23:12)
[2018-01-31] MEDS: Melatonin 3 MG TAB 9 MG PO (23:12)
[2018-01-31] MEDS: Acetaminophen 325 MG TAB PO (23:12)
[2018-02-01] VITALS (8 sets, daily range): BP systolic 118–140; BP diastolic 55–77; PULSE 54–63; RESP 18–28; TEMP 36.2–37.3; O2SAT 96–100
[2018-02-01] MEDS: Normal Saline 1,000 ML 150 ML IV ×2 (00:09→06:51)
[2018-02-01] MEDS: PIPERACILLIN/TAZO 3.375 GM in Normal Saline 50 ML IVPB ×4 (05:57→23:14)
[2018-02-01] MEDS: Levothyroxine 50 MCG TAB PO (05:58)
[2018-02-01 07:10] LABS: Absolute Basophil Count 0.07 k/cumm (0.0-0.2); Absolute Lymphocyte Count 1.12 k/cumm (1.2-3.4); Absolute Monocyte Count 0.82 k/cumm (0.11-0.7); Basophils % 0.6; Eosinophils % 12.9; HCT 26.8 % (40.0-50.0); HGB 7.9 g/dL (13.5-17.5); Immature Grans % 0.8; Mean Corp. HGB Concentration 29.5 g/dL (32.0-36.0); Mean Corpuscular Hemoglobin 21.5 pg (27.0-33.0); Mean Platelet Volume 9.4 fL (8.0-11.0); Monocytes % 6.6; Neutrophils % 70.1; Platelet Count 460 x1000/uL (130-400); RBC 3.67 m/cumm (4.50-6.00); RBC Distribution Width 20.8 % (11.8-14.1); White Blood Cell Count 12.43 k/cumm (4.4-10.8)
[2018-02-01 07:16] LABS: Anion Gap 10.7 mmol/L (3-11); BUN 32 mg/dL (7-18); CO2 19.3 mmol/L (21.0-32.0); CREATININE 1.81 mg/dL (0.70-1.30); Calcium 8.6 mg/dL (8.5-10.1); Chloride 112 mmol/L (98-107); Glucose 202 mg/dL (70-100); Magnesium 1.5 mg/dL (1.8-2.4); Potassium 4.9 mmol/L (3.5-5.1); Sodium 142 mmol/L (136-145)
[2018-02-01 07:24] LABS: Absolute Neutrophil Count 8.71 k/cumm (1.2-6.7)
[2018-02-01 07:46] LABS: Anisocytosis 3+; Diff Comment Diff Reviewed
[2018-02-01 07:47] LABS: Hypochromasia 2+; Microcytosis 3+; Ovalocytes 2+
--- NOTE | 2018-02-01 08:07 | CMPROGNOTE_ITS ---
Care Management Progress Note S/O: Brendan continues to struggle with ongoing itching and being uncomfortable. MD ordered hydroxizine with the hope this would bring Brendan some relief. Brendan will have his foot re-evaluated with the possibility of having podiatry (Dr. Ashford) and wound consult on Friday, he will also have KELLEE per MD. CM will continue to follow. CM received notification from Soni BROOKS that Brendan lost IV Access due to infiltration; please refer to provider note for further information. A: 57 year old male admitted to [facility] 01/26/18 for Hypotension, Dehydration, JESUS on CKD, UTI P: Per MD; KELLEE-likely Friday. 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 He will transport via the [facility] W/C van. The facility will manage his further needs.
[2018-02-01] MEDS: Heparin 5,000 UNITS/ML VIAL 5000 UNITS SC ×2 (09:12→20:10)
[2018-02-01] MEDS: MAGNESIUM SULFATE 2 GM/50 ML BAG IVPB (09:12)
[2018-02-01] MEDS: Insulin Aspart 300 UNITS/3 ML PEN SC ×3 (09:46→17:08)
[2018-02-01] MEDS: Insulin Glargine 300 UNITS/3 ML PEN 20 UNITS SC (09:46)
[2018-02-01] MEDS: Folic Acid 1 MG TAB PO (09:47)
[2018-02-01] MEDS: amLODIPine 5 MG TAB 10 MG PO (09:47)
[2018-02-01] MEDS: Cyanocobalamin 500 MCG TAB 1000 MCG PO (09:47)
[2018-02-01] MEDS: cloNIDine 0.1 MG TAB 0.3 MG PO ×3 (09:47→20:10)
[2018-02-01] MEDS: carBAMazepine 100 MG CHEW PO ×3 (09:47→20:12)
[2018-02-01] MEDS: Omeprazole 20 MG CAPCR PO (09:47)
[2018-02-01] MEDS: predniSONE 10 MG TAB PO (09:48)
[2018-02-01] MEDS: Carvedilol 6.25 MG TAB PO ×2 (09:48→20:12)
[2018-02-01] MEDS: Venlafaxine 75 MG TAB 37.5 MG PO ×3 (09:48→20:12)
[2018-02-01] MEDS: Furosemide 40 MG TAB PO (09:48)
[2018-02-01] MEDS: Gabapentin 300 MG CAP PO ×3 (09:48→20:10)
[2018-02-01] MEDS: Aspirin E.C. 81 MG TABEC PO ×2 (09:48→20:12)
[2018-02-01] MEDS: Sertraline 25 MG TAB PO (09:48)
[2018-02-01] MEDS: Omega-3 Fatty Acids 1000 MG CAP PO (09:48)
[2018-02-01] MEDS: Multivitamin w/Minerals TAB 1 TAB PO (09:48)
[2018-02-01] MEDS: Ferrous Sulfate 325 MG TAB PO ×2 (09:48→20:12)
[2018-02-01] MEDS: hydrOXYzine HCL 25 MG TAB 12.5 MG PO ×3 (11:09→23:14)
[2018-02-01] MEDS: VANCOMYCIN 1,000 MG in Normal Saline 250 ML 250 MG IV (11:09)
--- NOTE | 2018-02-01 13:00 | PT.INTREAT ---
Date of service: 02/01/18 Time of Service: 11:25 PT Notes 02/01/18 S: Indicated he is okay with trying a walk after getting great toe seen by doctor and having it dressed. Upon arrival to room at 12:30 Brendan was noted to be very sleepy and had a difficult time lifting head and opening eyes, but made himself walk. Indicated he was not hungry for lunch post ambulation. O: Seen in room at 10:40 for ther ex in bed due to issues with IV and patient needing to keep his arm up on pillow. Performed ankle pumps, quad / glut sets, supine hip flexion and hip abduction, as per flow sheet. Patient was very alert and talkative during this time. Held on ambulation until 12:30 due to IV and patient's right great toe needing to have dressings applied. Upon arrival to patient's room at 12:30 he was noted to be sleeping heavily and needed to be roused to perform ambulation with FWW x 20ft, with assist of 2 with IV pole and O2 supplement at 2L. Did require min assist with going supine to sit and mod assist with lifting legs when going sit to supine. O2 reading post ambulation was noted at 99%. Had been independent with bed transfers 2 days earlier. A: Tolerated today's ther ex very well, but did not do as well with bed mobility and ambulation today as he had been doing. Nursing staff indicated that Brendan had not slept well the night before. P: Continue with strengthening and ambulation as able to tolerate, for improved ADL function. TP x 1, 10:40 to 11:00 (20 minutes), TA x 1, 12:30 to 12:45 (15 minutes) Ro Nuñez, TALON
--- NOTE | 2018-02-01 13:08 | W.PM.PROGNOT ---
Date of Service Date of service: 02/01/18 Time of Service: 10:30 Assessment and Plan (1) Sepsis: Current visit: No Status: Resolved blood cultures positive for MRSA with repeat cultures negative. max temp overnight of 37.7. will repeat blood cultures and continue vancomycin and zosyn. He had an TTE that showed no evidence of vegetation but with ongoing fevers and white count should obtain KELLEE. will place cardiology consult for Friday. (2) JESUS (acute kidney injury): Current visit: Yes Status: Acute has resolved with IV fluids, his creatinine is at this baseline of 1.6-1.8. continue to avoid nephrotoxic drugs and renally dose medications (3) DVT prophylaxis: Current visit: No Status: Acute heparin subcu (4) Hypertension: Current visit: No Status: Chronic blood pressures have been controlled, continue amlodipine (5) Diabetes mellitus type 2, controlled: Current visit: No Status: Chronic continue blood sugar check and sliding scale coverage (6) Hypomagnesemia: Current visit: Yes Status: Acute replete and follow (7) IV infiltration: Current visit: Yes Status: Acute left upper extremity, with extensive swelling. IV was discontinued. will elevate arm above level of heart as much as possible during the day. provide warm compress. monitor CMST's every shift and prn. Subjective Interval history since last seen: 57 year old admitted with sepsis, with positive blood cultures on admission with MRSA. treated with broad spectrum antibiotics, no fevers overnight. He had a new heart murmur on exam, a TTE showed no evidence of vegetation, He has a KELLEE pending for friday. patient reports eating and drinking well, denies bowel or bladder issues. Ileostomy is draining soft brown stool. T tube draining bilious fluid. denies abdominal pain, dysuria or frequency. repeat blood cultures have been negative. His IV infiltrated overnight. He has swelling and pain to his left arm d/t infiltrate. Exam Const General: cooperative, disheveled (greasy hair) and ill appearing chronically Nutritional Appearance: overweight Orientation: alert [facility] Head: normal to inspection and atraumatic Resp Effort & Inspection: normal respiratory effort Auscultation: diminished lung sounds and no wheezes Cardio Rate: regular rate Rhythm: regular rhythm GI Inspection: normal to inspection and other (t tube and ileostomy intact and patent. ) Palpation: soft Auscultation: normal bowel sounds Extrem General: edema (bilateral upper and lower) Psych Appearance: disheveled Affect: blunted Attitude: cooperative Objective Objective Clinical Data: Abnormal lab results 01/31/18 02/01/18 02/01/18 Range/Units 15:15 06:15 06:15 WBC 12.43 H (4.4-10.8) k/cumm RBC 3.67 L (4.50-6.00) m/cumm Hgb 7.9 L (13.5-17.5) g/dL Hct 26.8 L (40.0-50.0) % MCV 73.0 L (80-95) fL MCH 21.5 L (27.0-33.0) pg MCHC 29.5 L (32.0-36.0) g/dL RDW 20.8 H (11.8-14.1) % Plt Count 460 H (130-400) x1000/uL Absolute Neutrophils 8.71 H (1.2-6.7) k/cumm Absolute Lymphocytes 1.12 L (1.2-3.4) k/cumm Absolute Monocytes 0.82 H (0.11-0.7) k/cumm Absolute Eosinophils 1.60 H (0.0-0.7) k/cumm Chloride 112 H (98-107) mmol/L Carbon Dioxide 19.3 L (21.0-32.0) mmol/L BUN 32 H (7-18) mg/dL Creatinine 1.81 H (0.70-1.30) mg/dL Glucose 202 H (70-100) mg/dL Magnesium 1.5 L (1.8-2.4) mg/dL Urine Protein Trace H (Negative) mg/dL Urine Blood Small H (Negative) Ur Leukocyte Esterase Small H (Negative) Vital Signs Temperature 37.0 C 02/01/18 11:39 Temperature Source Tympanic 02/01/18 11:39 Pulse 54 L 02/01/18 11:39 Pulse Rhythm Regular 02/01/18 12:00 Pulse 73 01/28/18 18:00 Respiratory Rate 28 H 02/01/18 11:39 Respiratory Effort Labored 02/01/18 12:00 Respiratory Depth Normal 02/01/18 12:00 Respiratory Pattern Normal 02/01/18 12:00 Blood Pressure 138/77 02/01/18 11:39 Blood Pressure Mean 94 01/28/18 17:14 Blood Pressure Position Supine 01/28/18 16:55 Pulse Oximetry 99 02/01/18 11:39 Oxygen Delivery Method Nasal Cannula 02/01/18 11:39 Oxygen Flow Rate 2 02/01/18 11:39 Pain Level 0 02/01/18 11:39 Comment 01/31/18 23:42 Intake & Output 01/31/18 02/01/18 02/01/18 23:59 11:59 23:59 Intake Total 1370 / 1370 2597.5 / 2597.5 Output Total 1765 / 1765 1175 / 1175 Balance -395 / -395 1422.5 / 1422.5 Intake: IV 890 / 890 1877.5 / 1877.5 Oral 480 / 480 720 / 720 Output: Drainage 125 / 125 125 / 125 Right Lateral Abdomen 125 / 125 125 / 125 Urine 940 / 940 400 / 400 Stool 700 / 700 650 / 650 Other: Urine Color Yellow Yellow Urine Appearance Clear Clear Clear Urine Odor None Comment bed linens changed at this time. Voiding Methods Urinal Urinal Laboratory Results WBC 12.43 k/cumm (4.4-10.8) H 02/01/18 06:15 RBC 3.67 m/cumm (4.50-6.00) L 02/01/18 06:15 Hgb 7.9 g/dL (13.5-17.5) L 02/01/18 06:15 Hct 26.8 % (40.0-50.0) L 02/01/18 06:15 MCV 73.0 fL (80-95) L 02/01/18 06:15 MCH 21.5 pg (27.0-33.0) L 02/01/18 06:15 MCHC 29.5 g/dL (32.0-36.0) L 02/01/18 06:15 RDW 20.8 % (11.8-14.1) H 02/01/18 06:15 Plt Count 460 x1000/uL (130-400) H 02/01/18 06:15 MPV 9.4 fL (8.0-11.0) 02/01/18 06:15 Immature Gran % 0.8 02/01/18 06:15 Neutrophils % 70.1 02/01/18 06:15 Lymphocytes % 9.0 02/01/18 06:15 Monocytes % 6.6 02/01/18 06:15 Eosinophils % 12.9 02/01/18 06:15 Basophils % 0.6 02/01/18 06:15 Absolute Neutrophils 8.71 k/cumm (1.2-6.7) H 02/01/18 06:15 Absolute Lymphocytes 1.12 k/cumm (1.2-3.4) L 02/01/18 06:15 Absolute Monocytes 0.82 k/cumm (0.11-0.7) H 02/01/18 06:15 Absolute Eosinophils 1.60 k/cumm (0.0-0.7) H 02/01/18 06:15 Absolute Basophils 0.07 k/cumm (0.0-0.2) 02/01/18 06:15 Differential Comment Diff reviewed 02/01/18 06:15 RBC Morphology See below 02/01/18 06:15 Polychromasia Present 01/30/18 07:10 Hypochromasia 2+ 02/01/18 06:15 Poikilocytosis 2+ 01/31/18 06:17 Anisocytosis 3+ 02/01/18 06:15 Microcytosis 3+ 02/01/18 06:15 Tear Drop Cells 2+ 01/29/18 06:45 Ovalocytes 2+ 02/01/18 06:15 PT 11.5 sec (9.3-10.8) H 01/26/18 17:28 INR 1.2 (1.0-3.5) 01/26/18 17:28 APTT 26.2 sec (21.0-31.4) 01/26/18 17:28 Sodium 142 mmol/L (136-145) 02/01/18 06:15 Potassium 4.9 mmol/L (3.5-5.1) 02/01/18 06:15 Chloride 112 mmol/L (98-107) H 02/01/18 06:15 Carbon Dioxide 19.3 mmol/L (21.0-32.0) L 02/01/18 06:15 Anion Gap 10.7 mmol/L (3-11) 02/01/18 06:15 BUN 32 mg/dL (7-18) H 02/01/18 06:15 Creatinine 1.81 mg/dL (0.70-1.30) H 02/01/18 06:15 Estimated GFR/1.73 m2 38.70 (mL/min/1.73m2) 02/01/18 06:15 Glucose 202 mg/dL (70-100) H 02/01/18 06:15 Lactate 0.8 mmol/L (0.6-1.4) 01/27/18 14:35 Calcium 8.6 mg/dL (8.5-10.1) 02/01/18 06:15 Magnesium 1.5 mg/dL (1.8-2.4) L 02/01/18 06:15 Iron 17 ug/dL (50-175) L 01/30/18 07:10 TIBC 191 ug/dL (250-450) L 01/30/18 07:10 Transferrin % Sat 9 % (20-55) L 01/30/18 07:10 Ferritin 93 ng/mL (8-388) 01/30/18 07:10 Total Bilirubin 0.3 mg/dL (0.2-1.0) 01/27/18 06:10 AST 10 U/L (15-37) L 01/27/18 06:10 ALT 17 U/L (12-78) 01/27/18 06:10 Alkaline Phosphatase 316 U/L (46-116) H 01/27/18 06:10 Creatine Kinase 17 U/L (39-308) L 01/27/18 06:10 Troponin I < 0.02 ng/mL (0.00-0.06) 01/26/18 17:28 C-Reactive Protein 6.02 mg/dL (0.0-0.3) H 01/31/18 06:17 Total Protein 7.4 g/dL (6.4-8.2) 01/27/18 06:10 Albumin 2.1 g/dL (3.4-5.0) L 01/27/18 06:10 TSH 0.54 uIU/mL (0.358-3.74) 01/26/18 17:15 Urine Color Yellow (Yellow) 01/31/18 15:15 Urine Clarity Clear 01/31/18 15:15 Urine pH 5.5 (5-8) 01/31/18 15:15 Ur Specific [place] 1.015 (1.005-1.025) 01/31/18 15:15 Urine Protein Trace mg/dL (Negative) H 01/31/18 15:15 Urine Ketones Negative mg/dL (Negative) 01/31/18 15:15 Urine Blood Small (Negative) H 01/31/18 15:15 Urine Nitrite Negative (Negative) 01/31/18 15:15 Urine Bilirubin Negative (Negative) 01/31/18 15:15 Urine Urobilinogen 0.2 EU/dL (Up TO 0.2) 01/31/18 15:15 Ur Leukocyte Esterase Small (Negative) H 01/31/18 15:15 Urine RBC 0-2 (0-2) 01/31/18 15:15 Urine WBC >50 HPF (0-5) 01/31/18 15:15 Ur Epithelial Cells Rare HPF (Negative) 01/31/18 15:15 Urine Crystals Negative HPF (Negative) 01/31/18 15:15 Urine Bacteria Few HPF (Negative) 01/31/18 15:15 Urine Casts 0-2 coarse granular LPF (Negative) 01/31/18 15:15 Urine Mucus Trace (Negative) 01/31/18 15:15 Urine Other Few transitional (Negative) 01/31/18 15:15 Ur Culture Indicated? Yes 01/31/18 15:15 Urine Glucose Negative mg/dL (Negative) 01/31/18 15:15 Vancomycin Trough 15.9 ug/mL (10.0-20.0) 01/30/18 09:25 Random Vancomycin 11.7 ug/mL (5.0-10.0) H* 01/28/18 06:30
[2018-02-01] MEDS: Normal Saline Flush 10 ML SYR IVP ×2 (17:05→23:14)
[2018-02-01] MEDS: Melatonin 3 MG TAB 9 MG PO (23:14)
[2018-02-01] MEDS: risperiDONE 1 MG TAB 3 MG PO (23:14)
[2018-02-02 00:14] VITALS: BP 125/64; PULSE 58; RESP 24; TEMP 37.2; O2SAT 94
[2018-02-02] MEDS: hydrOXYzine HCL 25 MG TAB 12.5 MG PO ×4 (03:25→22:09)
[2018-02-02] MEDS: Levothyroxine 50 MCG TAB PO (05:29)
[2018-02-02] MEDS: PIPERACILLIN/TAZO 3.375 GM in Normal Saline 50 ML IVPB (05:32)
[2018-02-02 07:15] LABS: Abs Immature Grans 0.08 k/cumm (0.0-0.09); Absolute Neutrophil Count 9.38 k/cumm (1.2-6.7); Basophils % 0.4; Eosinophils % 15.1; HCT 24.6 % (40.0-50.0); HGB 7.2 g/dL (13.5-17.5); Immature Grans % 0.6; Lymphocytes % 7.6; Mean Corp. HGB Concentration 29.3 g/dL (32.0-36.0); Mean Corpuscular Hemoglobin 21.6 pg (27.0-33.0); Mean Corpuscular Volume 73.7 fL (80-95); Mean Platelet Volume 9.6 fL (8.0-11.0); Monocytes % 6.7; Neutrophils % 69.6; Platelet Count 464 x1000/uL (130-400); RBC 3.34 m/cumm (4.50-6.00); RBC Distribution Width 21.1 % (11.8-14.1); White Blood Cell Count 13.48 k/cumm (4.4-10.8)
[2018-02-02 07:20] VITALS: BP 142/74; PULSE 66; RESP 19; TEMP 37; O2SAT 91
[2018-02-02 07:20] LABS: Absolute Basophil Count 0.05 k/cumm (0.0-0.2); Absolute Eosinophil Count 2.04 k/cumm (0.0-0.7); Absolute Lymphocyte Count 1.02 k/cumm (1.2-3.4)
[2018-02-02 07:26] LABS: Anion Gap 9.2 mmol/L (3-11); BUN 33 mg/dL (7-18); CO2 20.8 mmol/L (21.0-32.0); CREATININE 2.14 mg/dL (0.70-1.30); Calcium 8.6 mg/dL (8.5-10.1); Chloride 110 mmol/L (98-107); Glucose 191 mg/dL (70-100); Magnesium 1.8 mg/dL (1.8-2.4); Potassium 4.9 mmol/L (3.5-5.1); Sodium 140 mmol/L (136-145)
[2018-02-02 07:41] LABS: Anisocytosis 2+; Diff Comment Diff Reviewed; Hypochromasia 3+; Microcytosis 3+; Polychromasia Present
[2018-02-02 07:42] LABS: Poikilocytes 3+
[2018-02-02] MEDS: Insulin Glargine 300 UNITS/3 ML PEN 20 UNITS SC (08:37)
[2018-02-02] MEDS: Insulin Aspart 300 UNITS/3 ML PEN SC ×3 (08:37→17:00)
[2018-02-02] MEDS: Venlafaxine 75 MG TAB 37.5 MG PO ×3 (08:38→20:35)
[2018-02-02] MEDS: Gabapentin 300 MG CAP PO ×3 (08:38→20:36)
[2018-02-02] MEDS: Multivitamin w/Minerals TAB 1 TAB PO (08:38)
[2018-02-02] MEDS: Cyanocobalamin 500 MCG TAB 1000 MCG PO (08:38)
[2018-02-02] MEDS: Omeprazole 20 MG CAPCR PO (08:38)
[2018-02-02] MEDS: cloNIDine 0.1 MG TAB 0.3 MG PO ×3 (08:38→20:34)
[2018-02-02] MEDS: carBAMazepine 100 MG CHEW PO ×3 (08:38→20:35)
[2018-02-02] MEDS: Omega-3 Fatty Acids 1000 MG CAP PO (08:38)
[2018-02-02] MEDS: Folic Acid 1 MG TAB PO (08:38)
[2018-02-02] MEDS: Ferrous Sulfate 325 MG TAB PO ×2 (08:38→20:35)
[2018-02-02] MEDS: Furosemide 40 MG TAB PO (08:38)
[2018-02-02] MEDS: Aspirin E.C. 81 MG TABEC PO ×2 (08:39→20:36)
[2018-02-02] MEDS: amLODIPine 5 MG TAB 10 MG PO (08:39)
[2018-02-02] MEDS: predniSONE 10 MG TAB PO (08:39)
[2018-02-02] MEDS: Sertraline 25 MG TAB PO (08:39)
[2018-02-02] MEDS: Carvedilol 6.25 MG TAB PO ×2 (08:39→20:36)
--- NOTE | 2018-02-02 08:59 | OT.INTREAT ---
Date of service: 02/02/18 Time of Service: 08:30 Occupational Therapy Notes Occupational Therapy Inpatient Treatment Note Date: 02/02/18 PRECAUTIONS: Contact Precautions SUBJECTIVE: Pt was sitting on the side of bed when OT arrived. He was getting ready to eat his breakfast and was agreeable to OT session. OBJECTIVE: PAIN:no c/o pain. BATHING: Upper Body: With (A) to get wash cloth and water pt was able to wash (B) hands including digits. Pts (B) UE are slightly swollen today and he has decreased ROM in his (L) UE compared to last OT session. Pt is able to wash dorsal aspect of (B) hands with decreased scrubbing ability. Due to pt's decreased ROM he was unable to perform UE bathing and denies during OT session. EATING: OT brought in adaptive fork for pt to use with handle. Pt was educated in grasp and lift however pt did not feel that this was helpful. Pt able to lift his bowl with eggs in attempt to dump eggs on to this plate, however pt is unable to perform this without min (A) as pts AROM is limited today. Pt able to (I) grab utensils, rotate tray and functionally move items on his tray to increase (I) in eating routine. Pt wanted salt for his eggs. Pt refuses to open salt package stating that he is not strong enough. OT opened salt package and pt sprinkled salt over his eggs increasing his (I) in set up for his eating routine. OT encourages pt to open packages on his own as much as possible to increase fine and gross motor (I) in his eating routine. Although pt denies education on this he is functionally able to open packages with min (A). Pt was able to cut his own eggs (I) with min vc for placement of fork. 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 Pt was receptive to this and reports that he performs this at the [facility] multiple times throughout the day. ASSESSMENT: Pt is not receptive to training when it involves him performing functional task without (A). With encouragement pt is willing to try task but reports multiple times throughout OT session that I can't do this. When OT is in the room pt is able to increase (I) with eating routine with multiple vc. Pt reports that he has been attempting deep breathing techniques throughout the day and this is helping him when he becomes frustrated. Pt would benefit from continued skilled OT intervention and education and training for increased (I) in bathing routine for UE and abdomen. PLAN: Will work on (I) in bathing routine for UE and Abdomen. TREATMENT CODES/TIME: Self Carex2, 28 minutes (08:30) DAVID Hi/Silva
--- NOTE | 2018-02-02 09:09 | OTTR_ITS ---
Date of service: 02/02/18 Time of Service: 08:30 Occupational Therapy Notes Occupational Therapy Inpatient Treatment Note Date: 02/02/18 PRECAUTIONS: Contact Precautions SUBJECTIVE: Pt was sitting on the side of bed when OT arrived. He was getting ready to eat his breakfast and was agreeable to OT session. OBJECTIVE: PAIN:no c/o pain. BATHING: Upper Body: With (A) to get wash cloth and water pt was able to wash (B) hands including digits. Pts (B) UE are slightly swollen today and he has decreased ROM in his (L) UE compared to last OT session. Pt is able to wash dorsal aspect of (B) hands with decreased scrubbing ability. Due to pt's decreased ROM he was unable to perform UE bathing and denies during OT session. EATING: OT brought in adaptive fork for pt to use with handle. Pt was educated in grasp and lift however pt did not feel that this was helpful. Pt able to lift his bowl with eggs in attempt to dump eggs on to this plate, however pt is unable to perform this without min (A) as pts AROM is limited today. Pt able to (I) grab utensils, rotate tray and functionally move items on his tray to increase (I) in eating routine. Pt wanted salt for his eggs. Pt refuses to open salt package stating that he is not strong enough. OT opened salt package and pt sprinkled salt over his eggs increasing his (I) in set up for his eating routine. OT encourages pt to open packages on his own as much as possible to increase fine and gross motor (I) in his eating routine. Although pt denies education on this he is functionally able to open packages with min (A). Pt was able to cut his own eggs (I) with min vc for placement of fork. 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 Pt was receptive to this and reports that he performs this at the [facility] multiple times throughout the day. ASSESSMENT: Pt is not receptive to training when it involves him performing functional task without (A). With encouragement pt is willing to try task but reports multiple times throughout OT session that I can't do this. When OT is in the room pt is able to increase (I) with eating routine with multiple vc. Pt reports that he has been attempting deep breathing techniques throughout the day and this is helping him when he becomes frustrated. Pt would benefit from continued skilled OT intervention and education and training for increased (I) in bathing routine for UE and abdomen. PLAN: Will work on (I) in bathing routine for UE and Abdomen. TREATMENT CODES/TIME: Self Carex2, 28 minutes (08:30) DAVID Hi/Sivla
[2018-02-02 09:53] LABS: Vancomycin, Trough 20.8 ug/mL (10.0-20.0)
[2018-02-02] MEDS: Heparin 5,000 UNITS/ML VIAL 5000 UNITS SC ×2 (10:38→20:35)
[2018-02-02 11:12] VITALS: BP 116/70; PULSE 55; RESP 20; TEMP 36.7; O2SAT 98
--- NOTE | 2018-02-02 14:48 | PDOC.CMPRO ---
Care Management Progress Note S/O: Brendan remains inpatient at [facility], he was drowsy when CM met with him, but pleasant in interaction. He reported meeting with Isela of [facility] today and shared she's a good one. He also shared hopes for being able to have his own room in the A wing as he reports he struggles to sleep in the C Wing. He is currently sharing a room and per Isela, the staff is working on having Brendan in his own room. CM faxed updated clinicals to [facility] for review. No change to overall plan at this time. A: 57 year old male admitted to [facility] 01/26/18 for Hypotension, Dehydration, JESUS on CKD, UTI P: Brendan will return to the [facility] when ready per MD he will likely require fci IV ABX of which the [facility] is only able to offer once per day at this time. He will transport via the [facility] W/C van. The facility will manage his further needs.
--- NOTE | 2018-02-02 15:06 | PT.INTREAT ---
Date of service: 02/02/18 Time of Service: 15:07 PT Notes Inpatient Physical Therapy Treatment Note Date: 02/02/18 PRECAUTIONS: Fall, Contact SUBJECTIVE: Brendan is reluctant to work with PT, however, following encouragement, he is agreeable. OBJECTIVE: PAIN: No c/o pain BED MOBILITY/TRANSFERS Supine-sit: I with HOB at 20 degrees Sit-supine: SBA with HOB flat Sit-stand: SBA Stand-sit: SBA GAIT Assistive Device: FWW Weight bearing: Full Assist: CGA Distance: 20' Deviation: Patient c/o LE fatigue, refused further gait training THEREX: Patient completed a LE strengthening program, in a supine position, as per flow sheet. He also completed functional [id number] exercise x3. ASSESSMENT: Patient tolerated session with c/o fatigue with gait training. He would benefit from continued gait and transfer training as well as strengthening for improved moiblity. PLAN: Continue with PT's POC TREATMENT CODE/TIME: 30 minutes; TA/TP
--- NOTE | 2018-02-02 15:15 | PGE_ITS ---
Date of Service Date of service: 02/02/18 Time of Service: 15:09 Assessment and Plan (1) Sepsis: Current visit: No Status: Resolved + Blood cultures, growing MRSA, repeat Cx negative. Continue vancomycin and zosyn. TTE showed no evidence of vegetation. (2) JESUS (acute kidney injury): Current visit: Yes Status: Acute Baseline Cr of 1.6-1.8, currently 2.14. Avoid nephrotoxic drugs and renally dose medications (3) DVT prophylaxis: Current visit: No Status: Acute heparin subcu (4) Hypertension: Current visit: No Status: Chronic blood pressures have been controlled, continue amlodipine (5) Diabetes mellitus type 2, controlled: Current visit: No Status: Chronic continue blood sugar check and sliding scale coverage (6) Hypomagnesemia: Current visit: Yes Status: Acute replete and follow (7) IV infiltration: Current visit: Yes Status: Acute left upper extremity, with extensive swelling. IV discontinued yesterday. CSMTs intact. Arm elevated Subjective Patient reports: no new complaints Interval history since last seen: 57 yo with multiple medical problems who is currently being treated for sepsis, JESUS d/t dehydration. Currently laying down in bed, drowsy, minimally participative in exam. Easily arousable and answering questions appropriately. No specific complaints or concerns to offer. Exam Const General: cooperative, disheveled (greasy hair) and ill appearing chronically Nutritional Appearance: overweight Orientation: oriented to person, oriented to place, oriented to time and other (drowsy) [facility] Head: normal to inspection, no palpable skull fracture, normocephalic and atraumatic Ears: hearing grossly normal bilaterally and external ears normal General nose exam: external nose normal and mucous membranes and turbinates abnormal other (Dry) Face and sinus: normal facial exam Mouth: mucous membranes dry (significantly dry ) and oral mucosa abnormal other (Dry) Teeth and gingiva: caries and poor dentition Throat: posterior oropharynx normal Eyes General: appearance normal, both eyes and all related structures Visual Barnard: normal visual barnard by confrontation Alignment and Position: alignment normal Eyelids: eyelids normal Conjunctivae: conjunctival abnormality bilaterally Pupils: PERRL Neck Neck: normal visual inspection, full ROM, no lymphadenopathy, trachea midline and supple Chest Chest: normal inspection of the chest Resp Effort & Inspection: normal respiratory effort and able to speak in complete sentences Auscultation: diminished lung sounds and no wheezes Cardio Jugular venous pressure: no JVD Palpation: normal PMI Rate: regular rate Rhythm: regular rhythm Heart Sounds: S1 normal, S2 normal, no gallops, no murmurs and no rubs Bruits: no abdominal aortic bruits and no carotid bruits Pulses: posterior tibial pulses present bilaterally and dorsalis pedis pulses present bilaterally GI Inspection: normal to inspection and other (t tube and ileostomy intact and patent. ) Palpation: soft, no hepatosplenomegaly, not firm, no guarding, no hepatosplenomegaly, no masses and nontender Percussion: normal to percussion Auscultation: normal bowel sounds Male General Exam: Yes normal external exam Back/Spine/Pelvis Back: no CVA tenderness Thoracic/Lumbar Spine: thoracic and lumbar spine normal to inspection Skin General skin exam: no rashes or lesions noted, dry skin and other (Bilateral p retibial stasis dermatitis skin changes) Hair: general thinning Nails: dystrophic Neuro General: alert, awake, oriented x3, oriented Patient Orientation: Person, Place and Time, moves all extremities, no focal motor deficits, decrease sensation to monofilament and other (drowsy but arousable and able to answer questions and follow commands) Cognition: normal cognition Speech: speech normal Motor: muscle tone normal throughout Extrem General: full ROM, normal capillary refill and edema (bilateral upper and lower) Right lower extremity: foot Details: abnormal to inspection (Right lateral foot ulcer 2.2 cm, shallow and w/ granulation tissue but no purulent drainage; dry healing ulcer over right great toe) Psych Appearance: grossly normal and disheveled Mental Status: mental status grossly normal and other (slow to respond but an swers appropriately) Speech and Movement: speech and movement normal Mood: other (slow to respond but answers appropriately) Affect: normal affect and blunted Attitude: cooperative Thought Process: normal and circumstantial Thought Content: normal Insight: limited Judgment: limited Objective Objective Clinical Data: Abnormal lab results 02/02/18 02/02/18 02/02/18 Range/Units 06:15 06:15 09:20 WBC 13.48 H (4.4-10.8) k/cumm RBC 3.34 L (4.50-6.00) m/cumm Hgb 7.2 L (13.5-17.5) g/dL Hct 24.6 L (40.0-50.0) % MCV 73.7 L (80-95) fL MCH 21.6 L (27.0-33.0) pg MCHC 29.3 L (32.0-36.0) g/dL RDW 21.1 H (11.8-14.1) % Plt Count 464 H (130-400) x1000/uL Absolute Neutrophils 9.38 H (1.2-6.7) k/cumm Absolute Lymphocytes 1.02 L (1.2-3.4) k/cumm Absolute Monocytes 0.90 H (0.11-0.7) k/cumm Absolute Eosinophils 2.04 H (0.0-0.7) k/cumm Chloride 110 H (98-107) mmol/L Carbon Dioxide 20.8 L (21.0-32.0) mmol/L BUN 33 H (7-18) mg/dL Creatinine 2.14 H (0.70-1.30) mg/dL Glucose 191 H (70-100) mg/dL Vancomycin Trough 20.8 H* (10.0-20.0) ug/mL Vital Signs Temperature 36.7 C 02/02/18 11:12 Temperature Source Tympanic 02/02/18 11:12 Pulse 55 L 02/02/18 11:12 Pulse Rhythm Regular 02/02/18 10:27 Pulse 73 01/28/18 18:00 Respiratory Rate 20 02/02/18 11:12 Respiratory Effort Labored 02/02/18 10:27 Respiratory Depth Normal 02/02/18 10:27 Respiratory Pattern Normal 02/02/18 10:27 Blood Pressure 116/70 02/02/18 11:12 Blood Pressure Mean 94 01/28/18 17:14 Blood Pressure Position Supine 01/28/18 16:55 Pulse Oximetry 98 02/02/18 11:12 Oxygen Delivery Method Room Air 02/02/18 11:12 Oxygen Flow Rate 0 02/02/18 11:12 Pain Level 0 02/01/18 11:39 Comment 01/31/18 23:42 Intake & Output 02/01/18 02/02/18 02/02/18 23:59 11:59 23:59 Intake Total 1640 / 1640 440 / 440 500 / 500 Output Total 1400 / 1400 900 / 900 200 / 200 Balance 240 / 240 -460 / -460 300 / 300 Weight 112.7 kg Intake: IV 1400 / 1400 100 / 100 Oral 240 / 240 240 / 240 500 / 500 Injectate 100 / 100 Right Lateral Abdomen 100 / 100 Output: Drainage 50 / 50 50 / 50 200 / 200 Right Lateral Abdomen 50 / 50 50 / 50 200 / 200 Urine 650 / 650 600 / 600 Stool 700 / 700 250 / 250 Other: Urine Color Yellow Yellow Urine Appearance Clear Clear Urine Odor Normal Comment pT spilled urinal in bed. Voiding Methods Urinal Urinal Laboratory Results WBC 13.48 k/cumm (4.4-10.8) H 02/02/18 06:15 RBC 3.34 m/cumm (4.50-6.00) L 02/02/18 06:15 Hgb 7.2 g/dL (13.5-17.5) L 02/02/18 06:15 Hct 24.6 % (40.0-50.0) L 02/02/18 06:15 MCV 73.7 fL (80-95) L 02/02/18 06:15 MCH 21.6 pg (27.0-33.0) L 02/02/18 06:15 MCHC 29.3 g/dL (32.0-36.0) L 02/02/18 06:15 RDW 21.1 % (11.8-14.1) H 02/02/18 06:15 Plt Count 464 x1000/uL (130-400) H 02/02/18 06:15 MPV 9.6 fL (8.0-11.0) 02/02/18 06:15 Immature Gran % 0.6 02/02/18 06:15 Neutrophils % 69.6 02/02/18 06:15 Lymphocytes % 7.6 02/02/18 06:15 Monocytes % 6.7 02/02/18 06:15 Eosinophils % 15.1 02/02/18 06:15 Basophils % 0.4 02/02/18 06:15 Absolute Neutrophils 9.38 k/cumm (1.2-6.7) H 02/02/18 06:15 Absolute Lymphocytes 1.02 k/cumm (1.2-3.4) L 02/02/18 06:15 Absolute Monocytes 0.90 k/cumm (0.11-0.7) H 02/02/18 06:15 Absolute Eosinophils 2.04 k/cumm (0.0-0.7) H 02/02/18 06:15 Absolute Basophils 0.05 k/cumm (0.0-0.2) 02/02/18 06:15 Differential Comment Diff reviewed 02/02/18 06:15 RBC Morphology See below 02/02/18 06:15 Polychromasia Present 02/02/18 06:15 Hypochromasia 3+ 02/02/18 06:15 Poikilocytosis 3+ 02/02/18 06:15 Anisocytosis 2+ 02/02/18 06:15 Microcytosis 3+ 02/02/18 06:15 Tear Drop Cells 2+ 01/29/18 06:45 Ovalocytes 2+ 02/01/18 06:15 PT 11.5 sec (9.3-10.8) H 01/26/18 17:28 INR 1.2 (1.0-3.5) 01/26/18 17:28 APTT 26.2 sec (21.0-31.4) 01/26/18 17:28 Sodium 140 mmol/L (136-145) 02/02/18 06:15 Potassium 4.9 mmol/L (3.5-5.1) 02/02/18 06:15 Chloride 110 mmol/L (98-107) H 02/02/18 06:15 Carbon Dioxide 20.8 mmol/L (21.0-32.0) L 02/02/18 06:15 Anion Gap 9.2 mmol/L (3-11) 02/02/18 06:15 BUN 33 mg/dL (7-18) H 02/02/18 06:15 Creatinine 2.14 mg/dL (0.70-1.30) H 02/02/18 06:15 Estimated GFR/1.73 m2 31.90 (mL/min/1.73m2) 02/02/18 06:15 Glucose 191 mg/dL (70-100) H 02/02/18 06:15 Lactate 0.8 mmol/L (0.6-1.4) 01/27/18 14:35 Calcium 8.6 mg/dL (8.5-10.1) 02/02/18 06:15 Magnesium 1.8 mg/dL (1.8-2.4) 02/02/18 06:15 Iron 17 ug/dL (50-175) L 01/30/18 07:10 TIBC 191 ug/dL (250-450) L 01/30/18 07:10 Transferrin % Sat 9 % (20-55) L 01/30/18 07:10 Ferritin 93 ng/mL (8-388) 01/30/18 07:10 Total Bilirubin 0.3 mg/dL (0.2-1.0) 01/27/18 06:10 AST 10 U/L (15-37) L 01/27/18 06:10 ALT 17 U/L (12-78) 01/27/18 06:10 Alkaline Phosphatase 316 U/L (46-116) H 01/27/18 06:10 Creatine Kinase 17 U/L (39-308) L 01/27/18 06:10 Troponin I < 0.02 ng/mL (0.00-0.06) 01/26/18 17:28 C-Reactive Protein 6.02 mg/dL (0.0-0.3) H 01/31/18 06:17 Total Protein 7.4 g/dL (6.4-8.2) 01/27/18 06:10 Albumin 2.1 g/dL (3.4-5.0) L 01/27/18 06:10 TSH 0.54 uIU/mL (0.358-3.74) 01/26/18 17:15 Urine Color Yellow (Yellow) 01/31/18 15:15 Urine Clarity Clear 01/31/18 15:15 Urine pH 5.5 (5-8) 01/31/18 15:15 Ur Specific [place] 1.015 (1.005-1.025) 01/31/18 15:15 Urine Protein Trace mg/dL (Negative) H 01/31/18 15:15 Urine Ketones Negative mg/dL (Negative) 01/31/18 15:15 Urine Blood Small (Negative) H 01/31/18 15:15 Urine Nitrite Negative (Negative) 01/31/18 15:15 Urine Bilirubin Negative (Negative) 01/31/18 15:15 Urine Urobilinogen 0.2 EU/dL (Up TO 0.2) 01/31/18 15:15 Ur Leukocyte Esterase Small (Negative) H 01/31/18 15:15 Urine RBC 0-2 (0-2) 01/31/18 15:15 Urine WBC >50 HPF (0-5) 01/31/18 15:15 Ur Epithelial Cells Rare HPF (Negative) 01/31/18 15:15 Urine Crystals Negative HPF (Negative) 01/31/18 15:15 Urine Bacteria Few HPF (Negative) 01/31/18 15:15 Urine Casts 0-2 coarse granular LPF (Negative) 01/31/18 15:15 Urine Mucus Trace (Negative) 01/31/18 15:15 Urine Other Few transitional (Negative) 01/31/18 15:15 Ur Culture Indicated? Yes 01/31/18 15:15 Urine Glucose Negative mg/dL (Negative) 01/31/18 15:15 Vancomycin Trough 20.8 ug/mL (10.0-20.0) H* 02/02/18 09:20 Random Vancomycin 11.7 ug/mL (5.0-10.0) H* 01/28/18 06:30
--- NOTE | 2018-02-02 15:15 | PTTR_ITS ---
Date of service: 02/02/18 Time of Service: 15:07 PT Notes Inpatient Physical Therapy Treatment Note Date: 02/02/18 PRECAUTIONS: Fall, Contact SUBJECTIVE: Brendan is reluctant to work with PT, however, following encouragement , he is agreeable. OBJECTIVE: PAIN: No c/o pain BED MOBILITY/TRANSFERS Supine-sit: I with HOB at 20 degrees Sit-supine: SBA with HOB flat Sit-stand: SBA Stand-sit: SBA GAIT Assistive Device: FWW Weight bearing: Full Assist: CGA Distance: 20' Deviation: Patient c/o LE fatigue, refused further gait training THEREX: Patient completed a LE strengthening program, in a supine position, as per flow sheet. He also completed functional [id number] exercise x3. ASSESSMENT: Patient tolerated session with c/o fatigue with gait training. He would benefit from continued gait and transfer training as well as strengthening for improved moiblity. PLAN: Continue with PT's POC TREATMENT CODE/TIME: 30 minutes; TA/TP
[2018-02-02] MEDS: VANCOMYCIN 1,000 MG in Normal Saline 250 ML 250 MG IV (15:37)
[2018-02-02] MEDS: Normal Saline Flush 10 ML SYR IVP (15:38)
[2018-02-02 15:53] VITALS: BP 128/82; PULSE 58; RESP 22; TEMP 36.7; O2SAT 96
--- NOTE | 2018-02-02 17:07 | CMPROGNOTE_ITS ---
Care Management Progress Note S/O: Brendan remains inpatient at [facility], he was drowsy when CM met with him, but pleasant in interaction. He reported meeting with Isela of [facility] Admissions today and shared she's a good one. He also shared hopes for being able to have his own room in the A wing as he reports he struggles to sleep in the C Wing. He is currently sharing a room and per Isela, the staff is working on having Brendan in his own room. CM faxed updated clinicals to [facility] for review. No change to overall plan at this time. A: 57 year old male admitted to [facility] 01/26/18 for Hypotension, Dehydration, JESUS on CKD, UTI P: Brendan will return to the [facility] when ready per MD he will likely require fci IV ABX of which the [facility] is only able to offer once per day at this time. He will transport via the [facility] W/C van. The facility will manage his further needs.
[2018-02-02 20:15] VITALS: BP 142/72; PULSE 70; RESP 20; TEMP 36.8; O2SAT 95
[2018-02-02] MEDS: risperiDONE 1 MG TAB 3 MG PO (22:09)
[2018-02-02] MEDS: Melatonin 3 MG TAB 9 MG PO (22:09)
[2018-02-03] VITALS (18 sets, daily range): BP systolic 145–187; BP diastolic 61–87; PULSE 57–95; RESP 18–26; TEMP 36.2–37.4; O2SAT 94–99
[2018-02-03] MEDS: hydrOXYzine HCL 25 MG TAB 12.5 MG PO ×4 (03:19→21:43)
[2018-02-03] MEDS: Levothyroxine 50 MCG TAB PO (06:34)
[2018-02-03 07:43] LABS: Abs Immature Grans 0.05 k/cumm (0.0-0.09); Absolute Basophil Count 0.04 k/cumm (0.0-0.2); Absolute Lymphocyte Count 1.08 k/cumm (1.2-3.4); Absolute Monocyte Count 0.92 k/cumm (0.11-0.7); Basophils % 0.3; HGB 7.3 g/dL (13.5-17.5); Immature Grans % 0.4; Lymphocytes % 8.7; Mean Corp. HGB Concentration 29.2 g/dL (32.0-36.0); Mean Corpuscular Hemoglobin 21.4 pg (27.0-33.0); Mean Corpuscular Volume 73.3 fL (80-95); Mean Platelet Volume 9.1 fL (8.0-11.0); Monocytes % 7.4; Neutrophils % 67.2; Platelet Count 478 x1000/uL (130-400); RBC 3.41 m/cumm (4.50-6.00); RBC Distribution Width 20.9 % (11.8-14.1)
[2018-02-03 07:52] LABS: Anion Gap 10.8 mmol/L (3-11); BUN 33 mg/dL (7-18); CO2 20.2 mmol/L (21.0-32.0); CREATININE 2.13 mg/dL (0.70-1.30); Calcium 8.7 mg/dL (8.5-10.1); Chloride 110 mmol/L (98-107); Estimated GFR 32.07 (mL/min/1.73m2); Glucose 154 mg/dL (70-100); Magnesium 1.5 mg/dL (1.8-2.4); Potassium 4.6 mmol/L (3.5-5.1); Sodium 141 mmol/L (136-145)
[2018-02-03 07:54] LABS: Absolute Eosinophil Count 1.98 k/cumm (0.0-0.7); Absolute Neutrophil Count 8.33 k/cumm (1.2-6.7)
[2018-02-03 08:23] LABS: Anisocytosis 3+; Diff Comment Diff Reviewed; Hypochromasia 3+; Microcytosis 3+; Poikilocytes 2+
[2018-02-03] MEDS: Insulin Aspart 300 UNITS/3 ML PEN SC ×3 (09:11→17:58)
[2018-02-03] MEDS: Insulin Glargine 300 UNITS/3 ML PEN 20 UNITS SC (09:11)
[2018-02-03] MEDS: MAGNESIUM SULFATE 1 GM/100 ML BAG IVPB (09:11)
[2018-02-03] MEDS: Folic Acid 1 MG TAB PO (09:12)
[2018-02-03] MEDS: Multivitamin w/Minerals TAB 1 TAB PO (09:12)
[2018-02-03] MEDS: carBAMazepine 100 MG CHEW PO ×3 (09:12→20:18)
[2018-02-03] MEDS: Gabapentin 300 MG CAP PO ×3 (09:12→20:18)
[2018-02-03] MEDS: amLODIPine 5 MG TAB 10 MG PO (09:12)
[2018-02-03] MEDS: Furosemide 40 MG TAB PO (09:12)
[2018-02-03] MEDS: Ferrous Sulfate 325 MG TAB PO ×2 (09:12→20:17)
[2018-02-03] MEDS: Aspirin E.C. 81 MG TABEC PO (09:12)
[2018-02-03] MEDS: cloNIDine 0.1 MG TAB 0.3 MG PO ×3 (09:12→20:17)
[2018-02-03] MEDS: Omega-3 Fatty Acids 1000 MG CAP PO (09:12)
[2018-02-03] MEDS: Cyanocobalamin 500 MCG TAB 1000 MCG PO (09:12)
[2018-02-03] MEDS: Carvedilol 6.25 MG TAB PO ×2 (09:12→20:18)
[2018-02-03] MEDS: predniSONE 10 MG TAB PO (09:13)
[2018-02-03] MEDS: Venlafaxine 75 MG TAB 37.5 MG PO ×3 (09:13→20:17)
[2018-02-03] MEDS: Omeprazole 20 MG CAPCR PO (09:13)
[2018-02-03] MEDS: Normal Saline Flush 10 ML SYR IVP (09:13)
[2018-02-03] MEDS: Sertraline 25 MG TAB PO (09:13)
[2018-02-03] MEDS: Heparin 5,000 UNITS/ML VIAL 5000 UNITS SC (09:57)
--- NOTE | 2018-02-03 10:51 | NT_ITS ---
Date of service: 02/03/18 Time of Service: 10:50 PT Notes 02/03/18 Patient refused morning PT session stating, with his eyes closed I can't do it , I can't move. I don't want to move, I'm not walking.
--- NOTE | 2018-02-03 11:49 | OT.INNT ---
Date of service: 02/03/18 Time of Service: 11:49 Occupational Therapy Notes 02/03/18 Pt was lying in bed when OT arrived. He reports that he is having trouble breathing and that he needs to get up right away. Pt was sweating, kept shutting his eyes due to discomfort. OT notified nursing who went in to assess pt. Suaznne Javier, OTR/Silva
--- NOTE | 2018-02-03 11:52 | OT.INNT ---
Date of service: 02/03/18 Time of Service: 11:52 Occupational Therapy Notes 02/03/18 OT went in to see pt who was lying in bed reporting that he was having difficulty breathing and wanted to get up right away. Pt was sweating, pale and kept shutting his eyes due to discomfort. OT notified nursing who came in to assess pt. OT will hold on treatment until tomorrow morning. \ Suzanne Javier OTR/L
[2018-02-03] MEDS: diphenhydrAMINE 25 MG CAP PO (14:59)
[2018-02-03] MEDS: Acetaminophen 325 MG TAB 650 MG PO (14:59)
--- NOTE | 2018-02-03 15:03 | PT.INNT ---
Date of service: 02/03/18 Time of Service: 15:03 PT Notes 02/03/18 Refused PT treatment this PM. Raquel Rashid, [employer]
--- NOTE | 2018-02-03 15:23 | W.INDIABCONS ---
Date of service: 02/03/18 Time of Service: 15:23 Diabetes Inpatient Consult DESCRIPTION/ASSESSMENT: Follow up on Brendan Corley who is here for urosepsis. He also has renal impairment and hemoglobin of 7.3. Brendan's blood sugars currently are in the 200s except fasting this morning at 143mg/dl. He is medically managed with 20u basal insulin and mealtime correction at the resistant level. His usual insulin dosage is 30u Lantus and Victoza. His Carbohydrate intake is not consistently available in his chart, however it appears he has poor appetite. Brendan is known to outpatient Diabetes Self Management and currently has little interest in this as his care is given by caretakers. It appears 6 units at a meal does not cover his food as his blood sugars increase, however 9 units does correct his blood sugars slightly. INTERVENTION: Brendan would benefit from increasing his basal insulin toward his usual dosage of 30units as a start to improving his overall glycemic control. If glycemic control does not improve with increased basal insulin as the day progresses, more intense mealtime management may be warranted based on his goals and prognosis, guided by his glycemic response to the insulin correction he now receives. PLAN: Will follow blood sugars. Time Spent in Nutritional Counseling and Treatment: gilson
--- NOTE | 2018-02-03 15:40 | PDOC.CMPRO ---
- If Service Date Differs Date of service: 02/03/18 Time of Service: 15:40 Care Management Progress Note S/O: Brendan was drowsy today and sleeping both times CM attempted to visit. He continues to work with PT and receive IV antibiotics. Brendan did have an incident of diaphoresis and difficulty breathing per OT, but appears to be back at his baseline later in the day. The plan of care is unchanged at this time and Brendan will transport back to the [facility] when medically ready per MD. A: 57 year old male admitted to [facility] 01/26/18 for Hypotension, Dehydration, JESUS on CKD, UTI P: Brendan will return to the [facility] when ready per MD he will likely require halfway IV ABX of which the [facility] is only able to offer once per day at this time. He will transport via the [facility] W/C van. The facility will manage his further needs.
--- NOTE | 2018-02-03 15:43 | CMPROGNOTE_ITS ---
- If Service Date Differs Date of service: 02/03/18 Time of Service: 15:40 Care Management Progress Note S/O: Brendan was drowsy today and sleeping both times CM attempted to visit. He continues to work with PT and receive IV antibiotics. Brendan did have an incident of diaphoresis and difficulty breathing per OT, but appears to be back at his baseline later in the day. The plan of care is unchanged at this time and Brendan will transport back to the [facility] when medically ready per MD. A: 57 year old male admitted to [facility] 01/26/18 for Hypotension, Dehydration, JESUS on CKD, UTI P: Brendan will return to the [facility] when ready per MD he will likely require correction IV ABX of which the [facility] is only able to offer once per day at this time. He will transport via the [facility] W/C van. The facility will manage his further needs.
--- NOTE | 2018-02-03 17:22 | PGE_ITS ---
Date of Service Date of service: 02/03/18 Time of Service: 17:05 Assessment and Plan (1) MRSA bacteremia: Current visit: Yes Status: Acute With original blood cultures positive for Bacteremia. Repeat blood cultures negative. Continue Vancomycin, currently on day #6. TTE showed no evidence of vegetation. He is scheduled for KELLEE tomorrow. NPO after midnight. (2) JESUS (acute kidney injury): Current visit: Yes Status: Acute Baseline Cr of 1.6-1.8, currently 2.13. Continue to avoid nephrotoxic drugs and renally dose medications. (3) Hypertension: Current visit: No Status: Chronic Blood pressure mildly elevated. Continue amlodipine, continue to monitor blood pressures. (4) Diabetes mellitus type 2, controlled: Current visit: No Status: Chronic Blood sugars increasing. He is eating well, increase his lantus back to his home dose of 30 units daily. Continue to monitor fingersticks. (5) Anemia: Current visit: No Status: Chronic His hgb continues to drop, it is down to 7.3 today. He appears symptomatic. He was pale and diaphoretic with weakness this morning. Give 2 u nits packed red blood cells slowly. Monitor for fluid overload. Reassess blood counts in the morning. (6) Hypomagnesemia: Current visit: Yes Status: Acute Replete and continue to follow. (7) IV infiltration: Current visit: Yes Status: Acute Right arm remains swollen. CMST intact. (8) DVT prophylaxis: Current visit: No Status: Acute Subcutaneous heparin. (9) Discharge planning issues: Current visit: Yes Status: Acute He is a FULL code. He is a resident of the [facility]. This case was discussed with Dr. Bravo who is in agreement. Subjective Interval history since last seen: Brendan is a 57 yo with multiple medical problems, resident of the [facility], who is currently being treated for sepsis with MRSA bacteremia, JESUS d/t dehydration. He is very drowsy, he awakens to answer questions. He reports feeling weak, he denies chest pain/pressure, denies shortness of breath, however, he appears to have increased work of breathing. He denies abdominal pain, nausea, vomiting, diarrhea. Exam Narrative Exam Narrative: General: Obese middle-aged male, very drowsy, appears pale and diaphoretic. Neurological: no focal deficits, answers questions appropriately, but needs to be awakened frequently to answer questions. HEENT: normocephalic, atraumatic, mucous membranes moist, very poor dentition, missing many teeth, no JVD Cardiovascular: RRR, distant heart sounds, unable to discern if there is a murmur over loud wheezing. Lungs: increased work of breathing, expiratory wheeze throughout with accessory muscle use noted. Gastrointestinal: abdomen soft, nontender, nondistended; cholecystostomy drain in place - draining nonpurulent fluid; Ostomy in place and draining. Extremities: Edema to bilateral upper and lower extremities, especially RUE. Pedal pulses palpable bilaterally. Skin: excoriations over bilateral lower extremities, healing, he has venous stasis changes to BLEs. Also with sores to bilateral feet. Objective Objective Clinical Data: Abnormal lab results 02/03/18 02/03/18 02/03/18 Range/Units 07:21 07:21 07:21 WBC 12.40 H (4.4-10.8) k/cumm RBC 3.41 L (4.50-6.00) m/cumm Hgb 7.3 L (13.5-17.5) g/dL Hct 25.0 L (40.0-50.0) % MCV 73.3 L (80-95) fL MCH 21.4 L (27.0-33.0) pg MCHC 29.2 L (32.0-36.0) g/dL RDW 20.9 H (11.8-14.1) % Plt Count 478 H (130-400) x1000/uL Absolute Neutrophils 8.33 H (1.2-6.7) k/cumm Absolute Lymphocytes 1.08 L (1.2-3.4) k/cumm Absolute Monocytes 0.92 H (0.11-0.7) k/cumm Absolute Eosinophils 1.98 H (0.0-0.7) k/cumm Chloride 110 H (98-107) mmol/L Carbon Dioxide 20.2 L (21.0-32.0) mmol/L BUN 33 H (7-18) mg/dL Creatinine 2.13 H (0.70-1.30) mg/dL Glucose 154 H (70-100) mg/dL Magnesium 1.5 L (1.8-2.4) mg/dL Crossmatch See Detail Vital Signs Temperature 36.7 C 02/03/18 16:35 Temperature Source Tympanic 02/03/18 16:10 Pulse 65 02/03/18 16:35 Pulse Rhythm Regular 02/03/18 15:54 Pulse 73 01/28/18 18:00 Respiratory Rate 20 02/03/18 16:35 Respiratory Effort Non-Labored 02/03/18 15:54 Respiratory Depth Normal 02/03/18 15:54 Respiratory Pattern Normal 02/03/18 15:54 Blood Pressure 184/80 H 02/03/18 16:35 Blood Pressure Mean 94 01/28/18 17:14 Blood Pressure Position Supine 01/28/18 16:55 Pulse Oximetry 94 L 02/03/18 16:35 Oxygen Delivery Method Nasal Cannula 02/03/18 16:35 Oxygen Flow Rate 0.5 02/03/18 16:35 Pain Level 0 02/03/18 16:10 Comment 01/31/18 23:42 Intake & Output 02/02/18 02/03/18 02/03/18 23:59 11:59 23:59 Intake Total 2060 / 2060 450 / 450 300 / 300 Output Total 1999 1450 / 1450 700 / 700 Balance 60 / 60 -1000 / -1000 -400 / -400 Weight 113.8 kg Intake: IV 250 / 250 Oral 1660 / 1660 450 / 450 300 / 300 Injectate 150 / 150 Right Lateral Abdomen 150 / 150 Output: Drainage 200 / 200 350 / 350 Right Lateral Abdomen 200 / 200 350 / 350 Urine 950 / 950 400 / 400 700 / 700 Stool 850 / 850 700 / 700 Other: Urine Color Yellow Yellow Yellow Urine Appearance Clear Clear Clear Urine Odor None Voiding Methods Urinal Toilet Urinal Laboratory Results WBC 12.40 k/cumm (4.4-10.8) H 02/03/18 07:21 RBC 3.41 m/cumm (4.50-6.00) L 02/03/18 07:21 Hgb 7.3 g/dL (13.5-17.5) L 02/03/18 07:21 Hct 25.0 % (40.0-50.0) L 02/03/18 07:21 MCV 73.3 fL (80-95) L 02/03/18 07:21 MCH 21.4 pg (27.0-33.0) L 02/03/18 07:21 MCHC 29.2 g/dL (32.0-36.0) L 02/03/18 07:21 RDW 20.9 % (11.8-14.1) H 02/03/18 07:21 Plt Count 478 x1000/uL (130-400) H 02/03/18 07:21 MPV 9.1 fL (8.0-11.0) 02/03/18 07:21 Immature Gran % 0.4 02/03/18 07:21 Neutrophils % 67.2 02/03/18 07:21 Lymphocytes % 8.7 02/03/18 07:21 Monocytes % 7.4 02/03/18 07:21 Eosinophils % 16.0 02/03/18 07:21 Basophils % 0.3 02/03/18 07:21 Absolute Neutrophils 8.33 k/cumm (1.2-6.7) H 02/03/18 07:21 Absolute Lymphocytes 1.08 k/cumm (1.2-3.4) L 02/03/18 07:21 Absolute Monocytes 0.92 k/cumm (0.11-0.7) H 02/03/18 07:21 Absolute Eosinophils 1.98 k/cumm (0.0-0.7) H 02/03/18 07:21 Absolute Basophils 0.04 k/cumm (0.0-0.2) 02/03/18 07:21 Differential Comment Diff reviewed 02/03/18 07:21 RBC Morphology See below 02/03/18 07:21 Polychromasia Present 02/02/18 06:15 Hypochromasia 3+ 02/03/18 07:21 Poikilocytosis 2+ 02/03/18 07:21 Anisocytosis 3+ 02/03/18 07:21 Microcytosis 3+ 02/03/18 07:21 Tear Drop Cells 2+ 01/29/18 06:45 Ovalocytes 2+ 02/01/18 06:15 PT 11.5 sec (9.3-10.8) H 01/26/18 17:28 INR 1.2 (1.0-3.5) 01/26/18 17:28 APTT 26.2 sec (21.0-31.4) 01/26/18 17:28 Sodium 141 mmol/L (136-145) 02/03/18 07:21 Potassium 4.6 mmol/L (3.5-5.1) 02/03/18 07:21 Chloride 110 mmol/L (98-107) H 02/03/18 07:21 Carbon Dioxide 20.2 mmol/L (21.0-32.0) L 02/03/18 07:21 Anion Gap 10.8 mmol/L (3-11) 02/03/18 07:21 BUN 33 mg/dL (7-18) H 02/03/18 07:21 Creatinine 2.13 mg/dL (0.70-1.30) H 02/03/18 07:21 Estimated GFR/1.73 m2 32.07 (mL/min/1.73m2) 02/03/18 07:21 Glucose 154 mg/dL (70-100) H 02/03/18 07:21 Lactate 0.8 mmol/L (0.6-1.4) 01/27/18 14:35 Calcium 8.7 mg/dL (8.5-10.1) 02/03/18 07:21 Magnesium 1.5 mg/dL (1.8-2.4) L 02/03/18 07:21 Iron 17 ug/dL (50-175) L 01/30/18 07:10 TIBC 191 ug/dL (250-450) L 01/30/18 07:10 Transferrin % Sat 9 % (20-55) L 01/30/18 07:10 Ferritin 93 ng/mL (8-388) 01/30/18 07:10 Total Bilirubin 0.3 mg/dL (0.2-1.0) 01/27/18 06:10 AST 10 U/L (15-37) L 01/27/18 06:10 ALT 17 U/L (12-78) 01/27/18 06:10 Alkaline Phosphatase 316 U/L (46-116) H 01/27/18 06:10 Creatine Kinase 17 U/L (39-308) L 01/27/18 06:10 Troponin I < 0.02 ng/mL (0.00-0.06) 01/26/18 17:28 C-Reactive Protein 6.02 mg/dL (0.0-0.3) H 01/31/18 06:17 Total Protein 7.4 g/dL (6.4-8.2) 01/27/18 06:10 Albumin 2.1 g/dL (3.4-5.0) L 01/27/18 06:10 TSH 0.54 uIU/mL (0.358-3.74) 01/26/18 17:15 Urine Color Yellow (Yellow) 01/31/18 15:15 Urine Clarity Clear 01/31/18 15:15 Urine pH 5.5 (5-8) 01/31/18 15:15 Ur Specific [place] 1.015 (1.005-1.025) 01/31/18 15:15 Urine Protein Trace mg/dL (Negative) H 01/31/18 15:15 Urine Ketones Negative mg/dL (Negative) 01/31/18 15:15 Urine Blood Small (Negative) H 01/31/18 15:15 Urine Nitrite Negative (Negative) 01/31/18 15:15 Urine Bilirubin Negative (Negative) 01/31/18 15:15 Urine Urobilinogen 0.2 EU/dL (Up TO 0.2) 01/31/18 15:15 Ur Leukocyte Esterase Small (Negative) H 01/31/18 15:15 Urine RBC 0-2 (0-2) 01/31/18 15:15 Urine WBC >50 HPF (0-5) 01/31/18 15:15 Ur Epithelial Cells Rare HPF (Negative) 01/31/18 15:15 Urine Crystals Negative HPF (Negative) 01/31/18 15:15 Urine Bacteria Few HPF (Negative) 01/31/18 15:15 Urine Casts 0-2 coarse granular LPF (Negative) 01/31/18 15:15 Urine Mucus Trace (Negative) 01/31/18 15:15 Urine Other Few transitional (Negative) 01/31/18 15:15 Ur Culture Indicated? Yes 01/31/18 15:15 Urine Glucose Negative mg/dL (Negative) 01/31/18 15:15 Vancomycin Trough 20.8 ug/mL (10.0-20.0) H* 02/02/18 09:20 Random Vancomycin 11.7 ug/mL (5.0-10.0) H* 01/28/18 06:30 Patient ABO/Rh AB Negative 02/03/18 07:21 Antibody Screen Negative 02/03/18 07:21 Crossmatch See Detail 02/03/18 07:21
[2018-02-03] MEDS: VANCOMYCIN 1,000 MG in Normal Saline 250 ML 250 MG IV (18:25)
--- NOTE | 2018-02-03 19:19 | W.PODCONSULT ---
Date of service: 02/03/18 Time of Service: 19:19 History of Present Illness Chief Complaint: Diabetic foot ulcerations right foot Narrative: brendan Corley, well-known to me is a 57-year-old white male who lives at the [facility]. He is admitted with MRSA bacteremia, with comorbidities including a history of chronic kidney failure, poorly controlled type 2 diabetes, UTI, dehydration, sepsis, hyperkalemia, adrenal insufficiency, toxic metabolic encephalopathy, hypothyroidism, hypertension, obesity, chronic bipolar disorder, CAD, dyslipidemia, arthritis, Crohn's disease, history of congestive heart failure, anemia. I have been asked to reassess his diabetic wounds. [facility] Diabetic foot ulcer (Chronic) Poorly controlled type 2 diabetes mellitus with circulatory disorder (Chronic) CKD (chronic kidney disease) (Chronic) Cardiopulmonary arrest with successful resuscitation (Resolved) Heme positive stool (Chronic) Pedal edema (Chronic) Chronic insomnia (Chronic) Anxiety (Chronic) Diabetes mellitus type 2, controlled (Chronic) Hypertension (Chronic) Chronic pain (Chronic) Hypothyroidism (Chronic) Obesity (Chronic) Back pain (Chronic 06/21/13) Inability to get out of bed (Chronic 06/21/13) Poor self care (Chronic 06/21/13) Chronic bipolar disorder (Chronic) CAD (coronary artery disease) (Chronic) Dyslipidemia (Chronic) Hypoandrogenism (Chronic) Rheumatoid arthritis (Chronic) Crohns disease (Chronic) Osteoarthritis of both knees (Chronic) Cholelithiasis (Chronic) Impaired mobility and ADLs (Chronic) Acute congestive heart failure (Chronic) Hemorrhagic cystitis (Chronic) Anemia (Chronic) Bipolar 1 disorder (Chronic) CAD (coronary artery disease) (Chronic) Chronic anxiety (Chronic) Chronic pain (Chronic) 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) Dyslipidemia (Chronic) Hypertension (Chronic) Arthroplasty of knee (Resolved 03/18/12) Fracture, Open Treatment (Resolved) Medical History CKD (chronic kidney disease) (Chronic) Cardiopulmonary arrest with successful resuscitation (Resolved) Heme positive stool (Chronic) Pedal edema (Chronic) Chronic insomnia (Chronic) Anxiety (Chronic) Diabetes mellitus type 2, controlled (Chronic) Hypertension (Chronic) Chronic pain (Chronic) Hypothyroidism (Chronic) Obesity (Chronic) Back pain (Chronic 06/21/13) Inability to get out of bed (Chronic 06/21/13) Poor self care (Chronic 06/21/13) Chronic bipolar disorder (Chronic) CAD (coronary artery disease) (Chronic) Dyslipidemia (Chronic) Hypoandrogenism (Chronic) Rheumatoid arthritis (Chronic) Crohns disease (Chronic) Osteoarthritis of both knees (Chronic) Cholelithiasis (Chronic) Impaired mobility and ADLs (Chronic) Acute congestive heart failure (Chronic) Hemorrhagic cystitis (Chronic) Anemia (Chronic) Bipolar 1 disorder (Chronic) CAD (coronary artery disease) (Chronic) Chronic anxiety (Chronic) Chronic pain (Chronic) 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) Dyslipidemia (Chronic) Hypertension (Chronic) Social History housing: long term Smoking/Tobacco Use Status: Never Surgical History Arthroplasty of knee (Resolved 03/18/12) Fracture, Open Treatment (Resolved) Social History housing: long term Smoking/Tobacco Use Status: Never Exam Narrative Exam Narrative: Brendan is seen at bedside he is drowsy. Somewhat lethargic but he does recognize me and calls me by name when he sees me. He denies any pain currently in his feet. Vascular exam: His feet are warm to the touch. Pulses are palpable at the ankles although diminished. Calves are soft to palpation. Venous stasis changes are noted chronic in nature. Toenails are fungal currently adequately groomed. Ulcerations are noted in the medial aspect of the right great toe at the DIPJ level and over the plantar lateral aspect of the right fifth metatarsal head. Both wounds appear clean. There is no active signs of infection in the wounds. Wound under the great toe has granulated nicely since I last seen it and is epithelializing and does not appear to be particularly problematic at this time Wound under the plantar and lateral aspect of the right fifth metatarsal head is grade 2 with a granular base. There is some hypertrophy and appears to be a slime layer around the wound but there is no undermining appreciated there was no odor. Muscle groups are 5 out of 5 bilaterally although he is markedly deconditioned. Skeletal exam reveals flexion contractures of the toes with significant deformities noted particularly at the right great toe which is contracted both in the sagittal and transverse plane. Neurologically he is densely neuropathic. Assessment: Stable diabetic wounds of right foot as above. Plan: Recommend continue daily cleansing of the wounds with soap and water. I will add collagenase Santyl to the wound overlying the right fifth metatarsal head covered by Mepilex dressing daily. The wound on the great toe will be washed also on a daily basis but left open to the air. I will plan on visiting again later in the week if he remains in-house and make wound care adjustments at that time. Thank you for this consultation. Results Last Vital Signs Temp 36.8 C 02/03/18 18:19 Pulse 66 02/03/18 18:19 Resp 20 02/03/18 18:19 BP 180/85 H 02/03/18 18:19 Pulse Ox 96 02/03/18 18:19 Labs : 02/03/18 07:21 02/03/18 07:21 Laboratory Results - last 24 hr 02/03/18 02/03/18 02/03/18 07:21 07:21 07:21 WBC 12.40 H RBC 3.41 L Hgb 7.3 L Hct 25.0 L MCV 73.3 L MCH 21.4 L MCHC 29.2 L RDW 20.9 H Plt Count 478 H MPV 9.1 Immature Gran % 0.4 Neutrophils % 67.2 Lymphocytes % 8.7 Monocytes % 7.4 Eosinophils % 16.0 Basophils % 0.3 Absolute Neutrophils 8.33 H Absolute Lymphocytes 1.08 L Absolute Monocytes 0.92 H Absolute Eosinophils 1.98 H Absolute Basophils 0.04 Differential Comment Diff reviewed RBC Morphology See below Hypochromasia 3+ Poikilocytosis 2+ Anisocytosis 3+ Microcytosis 3+ Sodium 141 Potassium 4.6 Chloride 110 H Carbon Dioxide 20.2 L Anion Gap 10.8 BUN 33 H Creatinine 2.13 H Estimated GFR/1.73 m2 32.07 Glucose 154 H Calcium 8.7 Magnesium 1.5 L Patient ABO/Rh AB Negative Antibody Screen Negative Crossmatch See Detail 02/03/18 17:45 WBC RBC Hgb Cancelled Hct Cancelled MCV MCH MCHC RDW Plt Count MPV Immature Gran % Neutrophils % Lymphocytes % Monocytes % Eosinophils % Basophils % Absolute Neutrophils Absolute Lymphocytes Absolute Monocytes Absolute Eosinophils Absolute Basophils Differential Comment RBC Morphology Hypochromasia Poikilocytosis Anisocytosis Microcytosis Sodium Potassium Chloride Carbon Dioxide Anion Gap BUN Creatinine Estimated GFR/1.73 m2 Glucose Calcium Magnesium Patient ABO/Rh Antibody Screen Crossmatch
--- NOTE | 2018-02-03 19:28 | POCOE_ITS ---
Date of service: 02/03/18 Time of Service: 19:19 History of Present Illness Chief Complaint: Diabetic foot ulcerations right foot Narrative: brendan Corley, well-known to me is a 57-year-old white male who lives at the [facility]. He is admitted with MRSA bacteremia, with comorbidities including a history of chronic kidney failure, poorly controlled type 2 diabetes , UTI, dehydration, sepsis, hyperkalemia, adrenal insufficiency, toxic metabolic encephalopathy, hypothyroidism, hypertension, obesity, chronic bipolar disorder, CAD, dyslipidemia, arthritis, Crohn's disease, history of congestive heart failure, anemia. I have been asked to reassess his diabetic wounds. [facility] Diabetic foot ulcer (Chronic) Poorly controlled type 2 diabetes mellitus with circulatory disorder (Chronic) CKD (chronic kidney disease) (Chronic) Cardiopulmonary arrest with successful resuscitation (Resolved) Heme positive stool (Chronic) Pedal edema (Chronic) Chronic insomnia (Chronic) Anxiety (Chronic) Diabetes mellitus type 2, controlled (Chronic) Hypertension (Chronic) Chronic pain (Chronic) Hypothyroidism (Chronic) Obesity (Chronic) Back pain (Chronic 06/21/13) Inability to get out of bed (Chronic 06/21/13) Poor self care (Chronic 06/21/13) Chronic bipolar disorder (Chronic) CAD (coronary artery disease) (Chronic) Dyslipidemia (Chronic) Hypoandrogenism (Chronic) Rheumatoid arthritis (Chronic) Crohns disease (Chronic) Osteoarthritis of both knees (Chronic) Cholelithiasis (Chronic) Impaired mobility and ADLs (Chronic) Acute congestive heart failure (Chronic) Hemorrhagic cystitis (Chronic) Anemia (Chronic) Bipolar 1 disorder (Chronic) CAD (coronary artery disease) (Chronic) Chronic anxiety (Chronic) Chronic pain (Chronic) 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) Dyslipidemia (Chronic) Hypertension (Chronic) Arthroplasty of knee (Resolved 03/18/12) Fracture, Open Treatment (Resolved) Medical History CKD (chronic kidney disease) (Chronic) Cardiopulmonary arrest with successful resuscitation (Resolved) Heme positive stool (Chronic) Pedal edema (Chronic) Chronic insomnia (Chronic) Anxiety (Chronic) Diabetes mellitus type 2, controlled (Chronic) Hypertension (Chronic) Chronic pain (Chronic) Hypothyroidism (Chronic) Obesity (Chronic) Back pain (Chronic 06/21/13) Inability to get out of bed (Chronic 06/21/13) Poor self care (Chronic 06/21/13) Chronic bipolar disorder (Chronic) CAD (coronary artery disease) (Chronic) Dyslipidemia (Chronic) Hypoandrogenism (Chronic) Rheumatoid arthritis (Chronic) Crohns disease (Chronic) Osteoarthritis of both knees (Chronic) Cholelithiasis (Chronic) Impaired mobility and ADLs (Chronic) Acute congestive heart failure (Chronic) Hemorrhagic cystitis (Chronic) Anemia (Chronic) Bipolar 1 disorder (Chronic) CAD (coronary artery disease) (Chronic) Chronic anxiety (Chronic) Chronic pain (Chronic) 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) Dyslipidemia (Chronic) Hypertension (Chronic) Social History housing: [facility] Smoking/Tobacco Use Status: Never Surgical History Arthroplasty of knee (Resolved 03/18/12) Fracture, Open Treatment (Resolved) Social History housing: [facility] Smoking/Tobacco Use Status: Never Exam Narrative Exam Narrative: Brendan is seen at bedside he is drowsy. Somewhat lethargic but he does recognize me and calls me by name when he sees me. He denies any pain currently in his feet. Vascular exam: His feet are warm to the touch. Pulses are palpable at the ankles although diminished. Calves are soft to palpation. Venous stasis changes are noted chronic in nature. Toenails are fungal currently adequately groomed. Ulcerations are noted in the medial aspect of the right great toe at the DIPJ level and over the plantar lateral aspect of the right fifth metatarsal head. Both wounds appear clean. There is no active signs of infection in the wounds. Wound under the great toe has granulated nicely since I last seen it and is epithelializing and does not appear to be particularly problematic at this time Wound under the plantar and lateral aspect of the right fifth metatarsal head is grade 2 with a granular base. There is some hypertrophy and appears to be a slime layer around the wound but there is no undermining appreciated there was no odor. Muscle groups are 5 out of 5 bilaterally although he is markedly deconditioned. Skeletal exam reveals flexion contractures of the toes with significant deformities noted particularly at the right great toe which is contracted both in the sagittal and transverse plane. Neurologically he is densely neuropathic. Assessment: Stable diabetic wounds of right foot as above. Plan: Recommend continue daily cleansing of the wounds with soap and water. I will add collagenase Santyl to the wound overlying the right fifth metatarsal head covered by Mepilex dressing daily. The wound on the great toe will be washed also on a daily basis but left open to the air. I will plan on visiting again later in the week if he remains in-house and make wound care adjustments at that time. Thank you for this consultation. Results Last Vital Signs Temp 36.8 C 02/03/18 18:19 Pulse 66 02/03/18 18:19 Resp 20 02/03/18 18:19 BP 180/85 H 02/03/18 18:19 Pulse Ox 96 02/03/18 18:19 Labs : 02/03/18 07:21 02/03/18 07:21 Laboratory Results - last 24 hr 02/03/18 02/03/18 02/03/18 07:21 07:21 07:21 WBC 12.40 H RBC 3.41 L Hgb 7.3 L Hct 25.0 L MCV 73.3 L MCH 21.4 L MCHC 29.2 L RDW 20.9 H Plt Count 478 H MPV 9.1 Immature Gran % 0.4 Neutrophils % 67.2 Lymphocytes % 8.7 Monocytes % 7.4 Eosinophils % 16.0 Basophils % 0.3 Absolute Neutrophils 8.33 H Absolute Lymphocytes 1.08 L Absolute Monocytes 0.92 H Absolute Eosinophils 1.98 H Absolute Basophils 0.04 Differential Comment Diff reviewed RBC Morphology See below Hypochromasia 3+ Poikilocytosis 2+ Anisocytosis 3+ Microcytosis 3+ Sodium 141 Potassium 4.6 Chloride 110 H Carbon Dioxide 20.2 L Anion Gap 10.8 BUN 33 H Creatinine 2.13 H Estimated GFR/1.73 m2 32.07 Glucose 154 H Calcium 8.7 Magnesium 1.5 L Patient ABO/Rh AB Negative Antibody Screen Negative Crossmatch See Detail 02/03/18 17:45 WBC RBC Hgb Cancelled Hct Cancelled MCV MCH MCHC RDW Plt Count MPV Immature Gran % Neutrophils % Lymphocytes % Monocytes % Eosinophils % Basophils % Absolute Neutrophils Absolute Lymphocytes Absolute Monocytes Absolute Eosinophils Absolute Basophils Differential Comment RBC Morphology Hypochromasia Poikilocytosis Anisocytosis Microcytosis Sodium Potassium Chloride Carbon Dioxide Anion Gap BUN Creatinine Estimated GFR/1.73 m2 Glucose Calcium Magnesium Patient ABO/Rh Antibody Screen Crossmatch
[2018-02-03] MEDS: Melatonin 3 MG TAB 9 MG PO (21:43)
[2018-02-03] MEDS: risperiDONE 1 MG TAB 3 MG PO (21:43)
[2018-02-04] VITALS (9 sets, daily range): BP systolic 140–185; BP diastolic 68–82; PULSE 56–85; RESP 18–26; TEMP 36.5–37.3; O2SAT 95–100
[2018-02-04] MEDS: Normal Saline Flush 10 ML SYR IVP ×5 (03:51→19:27)
[2018-02-04 04:15] LABS: HCT 28.6 % (40.0-50.0)
[2018-02-04] MEDS: Albuterol 2.5 MG/3 ML INH SOLN VIAL UPD (07:37)
[2018-02-04 07:52] LABS: Abs Immature Grans 0.03 k/cumm (0.0-0.09); Absolute Eosinophil Count 1.85 k/cumm (0.0-0.7); Absolute Lymphocyte Count 1.08 k/cumm (1.2-3.4); Absolute Monocyte Count 1.18 k/cumm (0.11-0.7); Absolute Neutrophil Count 9.83 k/cumm (1.2-6.7); Basophils % 0.4; Eosinophils % 13.2; HCT 29.2 % (40.0-50.0); HGB 9.1 g/dL (13.5-17.5); Immature Grans % 0.2; Lymphocytes % 7.7; Mean Corp. HGB Concentration 31.2 g/dL (32.0-36.0); Mean Corpuscular Hemoglobin 23.1 pg (27.0-33.0); Mean Corpuscular Volume 74.1 fL (80-95); Monocytes % 8.4; Neutrophils % 70.1; Platelet Count 473 x1000/uL (130-400); RBC 3.94 m/cumm (4.50-6.00); RBC Distribution Width 20.7 % (11.8-14.1); White Blood Cell Count 14.02 k/cumm (4.4-10.8)
[2018-02-04 07:56] LABS: Absolute Basophil Count 0.06 k/cumm (0.0-0.2)
[2018-02-04 08:00] LABS: BUN 33 mg/dL (7-18); Calcium 8.6 mg/dL (8.5-10.1); Chloride 110 mmol/L (98-107); Estimated GFR 34.49 (mL/min/1.73m2); Glucose 181 mg/dL (70-100); Magnesium 1.7 mg/dL (1.8-2.4); Potassium 4.2 mmol/L (3.5-5.1); Sodium 142 mmol/L (136-145)
[2018-02-04 08:07] LABS: Anisocytosis 2+; Diff Comment Diff Reviewed; Hypochromasia 3+; Microcytosis 3+; Poikilocytes 2+; Polychromasia Present
--- NOTE | 2018-02-04 09:35 | W.PREOPHP ---
Date of service: 02/04/18 Time of Service: 09:00 Assessment and Plan (1) MRSA bacteremia: Start date: 01/27/18 Current visit: Yes Status: Resolved Blood cultures have remained negative for more than 96 hours. Transthoracic echo cardiogram did not show typical features of infective endocarditis. The patient's respiratory status puts him at very high risk of requiring intubation during KELLEE. Given effective antibiotic therapy and tenuous respiratory status it was decided to not proceed with KELLEE. This was discussed with the covering hospitalist Dr. Garcia. History of Present Illness Chief Complaint: Bacteremia Narrative: 57-year-old man with MRSA bacteremia and transthoracic echocardiogram that did not show typical features of endocarditis. Repeat blood cultures have remained negative for 96 hours. Review of Systems Review of Systems Patient reports shortness of breath. Patient denies chest pain, dysphagia or odynophagia. [facility] Diabetic foot ulcer (Chronic) Poorly controlled type 2 diabetes mellitus with circulatory disorder (Chronic) CKD (chronic kidney disease) (Chronic) Cardiopulmonary arrest with successful resuscitation (Resolved) Heme positive stool (Chronic) Pedal edema (Chronic) Chronic insomnia (Chronic) Anxiety (Chronic) Diabetes mellitus type 2, controlled (Chronic) Hypertension (Chronic) Chronic pain (Chronic) Hypothyroidism (Chronic) Obesity (Chronic) Back pain (Chronic 06/21/13) Inability to get out of bed (Chronic 06/21/13) Poor self care (Chronic 06/21/13) Chronic bipolar disorder (Chronic) CAD (coronary artery disease) (Chronic) Dyslipidemia (Chronic) Hypoandrogenism (Chronic) Rheumatoid arthritis (Chronic) Crohns disease (Chronic) Osteoarthritis of both knees (Chronic) Cholelithiasis (Chronic) Impaired mobility and ADLs (Chronic) Acute congestive heart failure (Chronic) Hemorrhagic cystitis (Chronic) Anemia (Chronic) Bipolar 1 disorder (Chronic) CAD (coronary artery disease) (Chronic) Chronic anxiety (Chronic) Chronic pain (Chronic) 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) Dyslipidemia (Chronic) Hypertension (Chronic) Arthroplasty of knee (Resolved 03/18/12) Fracture, Open Treatment (Resolved) Medical History CKD (chronic kidney disease) (Chronic) Cardiopulmonary arrest with successful resuscitation (Resolved) Heme positive stool (Chronic) Pedal edema (Chronic) Chronic insomnia (Chronic) Anxiety (Chronic) Diabetes mellitus type 2, controlled (Chronic) Hypertension (Chronic) Chronic pain (Chronic) Hypothyroidism (Chronic) Obesity (Chronic) Back pain (Chronic 06/21/13) Inability to get out of bed (Chronic 06/21/13) Poor self care (Chronic 06/21/13) Chronic bipolar disorder (Chronic) CAD (coronary artery disease) (Chronic) Dyslipidemia (Chronic) Hypoandrogenism (Chronic) Rheumatoid arthritis (Chronic) Crohns disease (Chronic) Osteoarthritis of both knees (Chronic) Cholelithiasis (Chronic) Impaired mobility and ADLs (Chronic) Acute congestive heart failure (Chronic) Hemorrhagic cystitis (Chronic) Anemia (Chronic) Bipolar 1 disorder (Chronic) CAD (coronary artery disease) (Chronic) Chronic anxiety (Chronic) Chronic pain (Chronic) 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) Dyslipidemia (Chronic) Hypertension (Chronic) Social History housing: correction Smoking/Tobacco Use Status: Never Surgical History Arthroplasty of knee (Resolved 03/18/12) Fracture, Open Treatment (Resolved) Social History housing: correction Smoking/Tobacco Use Status: Never Meds Home Medications Medication Instructions Recorded Confirmed Type acetaminophen [Acetaminophen Extra 500 mg PO BID 12/23/17 01/26/18 History Strength] aspirin [Aspirin Low Dose] 81 mg PO BID 12/23/17 01/26/18 History carbamazepine 100 mg PO TID 12/23/17 01/26/18 History cyanocobalamin (vitamin B-12) 1,000 mcg PO DAILY 12/23/17 01/26/18 History folic acid 1 mg PO DAILY 12/23/17 01/26/18 History furosemide 40 mg PO DAILY 12/23/17 01/26/18 History gabapentin 800 mg PO TID 12/23/17 01/26/18 History levothyroxine 50 mcg PO DAILY 12/23/17 01/26/18 History liraglutide [Victoza 2-Saleem] 1.2 mg SUBCUT DAILY 12/23/17 01/26/18 History loperamide 2 mg PO DAILY 12/23/17 01/26/18 History loperamide 2 mg PO QID PRN 12/23/17 01/26/18 History multivitamin with iron [One Daily 1 tab PO DAILY 12/23/17 01/26/18 History Multi-Vit w-Mineral] nortriptyline 25 mg PO DAILY 12/23/17 01/26/18 History omega 9-wwe-gne-fish oil [Fish Oil] 2 cap PO DAILY 12/23/17 01/26/18 History omeprazole 20 mg PO DAILY 12/23/17 01/26/18 History prednisone 10 mg PO DAILY 12/23/17 01/26/18 History risperidone 3 mg PO HS 12/23/17 01/26/18 History sertraline 25 mg PO DAILY 12/23/17 01/26/18 History trazodone 50 mg PO HS 12/23/17 01/26/18 History venlafaxine 75 mg PO TID 12/23/17 01/26/18 History amlodipine 10 mg PO DAILY #0 tab 12/31/17 01/26/18 Rx ammonium lactate See Label Instructions .ROUTE 12/31/17 01/26/18 Rx .COMPLEX #0 tube amoxicillin-pot clavulanate 1 tab PO BID #19 tab 12/31/17 01/26/18 Rx ascorbic acid (vitamin C) [Vitamin 500 mg PO BID #0 tab 12/31/17 01/26/18 Rx C] carvedilol [Coreg] 6.25 mg PO BID #60 tab 12/31/17 01/26/18 Rx clonidine HCl [Catapres] 0.3 mg PO TID #0 tab 12/31/17 01/26/18 Rx ferrous sulfate 325 mg PO BID #0 tab 12/31/17 01/26/18 Rx insulin aspart U-100 [Novolog See Label Instructions .ROUTE 12/31/17 01/26/18 Rx Flexpen U-100 Insulin] .COMPLEX #0 ml insulin glargine [Lantus Solostar 30 units SUBCUT DAILY #0 ml 12/31/17 01/26/18 Rx U-100 Insulin] lisinopril 10 mg PO DAILY #0 tab 12/31/17 01/26/18 Rx melatonin 9 mg PO DAILY@0000 #0 tab 12/31/17 01/26/18 Rx Allergies Allergy/AdvReac Type Severity Reaction Status Date / Time No Known Allergies Allergy Unverified 01/26/18 19:46 Exam Narrative Exam Narrative: General: Pale, distressed, diaphoretic, using accessory muscles HEENT: Poor dentition, oropharynx clear Neck: Supple, trachea midline, no masses Cardiovascular: Tachycardic, no murmurs Lungs: Poor air entry bilaterally, expiratory wheezing throughout, no rhonchi or rails Neuro: Alert and oriented x3, grossly intact Results Labs : 02/04/18 07:38 02/04/18 07:38 Laboratory Results - last 24 hr 02/03/18 02/03/18 02/03/18 07:21 17:45 21:19 WBC RBC Hgb Cancelled Cancelled Hct Cancelled Cancelled MCV MCH MCHC RDW Plt Count MPV Immature Gran % Neutrophils % Lymphocytes % Monocytes % Eosinophils % Basophils % Absolute Neutrophils Absolute Lymphocytes Absolute Monocytes Absolute Eosinophils Absolute Basophils Differential Comment RBC Morphology Polychromasia Hypochromasia Poikilocytosis Anisocytosis Microcytosis Sodium Potassium Chloride Carbon Dioxide Anion Gap BUN Creatinine Estimated GFR/1.73 m2 Glucose Calcium Magnesium Patient ABO/Rh AB Negative Antibody Screen Negative Crossmatch See Detail 02/03/18 02/04/18 02/04/18 22:00 03:55 07:38 WBC RBC Hgb Cancelled 9.0 L Hct Cancelled 28.6 L MCV MCH MCHC RDW Plt Count MPV Immature Gran % Neutrophils % Lymphocytes % Monocytes % Eosinophils % Basophils % Absolute Neutrophils Absolute Lymphocytes Absolute Monocytes Absolute Eosinophils Absolute Basophils Differential Comment RBC Morphology Polychromasia Hypochromasia Poikilocytosis Anisocytosis Microcytosis Sodium 142 Potassium 4.2 Chloride 110 H Carbon Dioxide 22.0 Anion Gap 10.0 BUN 33 H Creatinine 2.00 H Estimated GFR/1.73 m2 34.49 Glucose 181 H Calcium 8.6 Magnesium 1.7 L Patient ABO/Rh Antibody Screen Crossmatch 02/04/18 07:38 WBC 14.02 H RBC 3.94 L Hgb 9.1 L Hct 29.2 L MCV 74.1 L MCH 23.1 L MCHC 31.2 L RDW 20.7 H Plt Count 473 H MPV 9.0 Immature Gran % 0.2 Neutrophils % 70.1 Lymphocytes % 7.7 Monocytes % 8.4 Eosinophils % 13.2 Basophils % 0.4 Absolute Neutrophils 9.83 H Absolute Lymphocytes 1.08 L Absolute Monocytes 1.18 H Absolute Eosinophils 1.85 H Absolute Basophils 0.06 Differential Comment Diff reviewed RBC Morphology See below Polychromasia Present Hypochromasia 3+ Poikilocytosis 2+ Anisocytosis 2+ Microcytosis 3+ Sodium Potassium Chloride Carbon Dioxide Anion Gap BUN Creatinine Estimated GFR/1.73 m2 Glucose Calcium Magnesium Patient ABO/Rh Antibody Screen Crossmatch Last Vital Signs Temp 37.3 C 02/04/18 08:10 Pulse 85 02/04/18 08:10 Resp 20 02/04/18 08:10 BP 159/81 H 02/04/18 08:10 Pulse Ox 97 02/04/18 08:10
--- NOTE | 2018-02-04 10:11 | DI.RAD_ITS ---
SYMPTOMS/DIAGNOSIS: WHEEZING CHEST: AP and lateral. Comparison 01/26/18 and 01/31/18. The heart size is within normal limits and the pulmonary vasculature is within normal limits. There is a small right pleural effusion again noted. The lungs are otherwise clear. The lungs do appear to be hyperinflated suggesting underlying COPD. IMPRESSION: Small right pleural effusion.
--- NOTE | 2018-02-04 10:25 | OT.INNT ---
Date of service: 02/04/18 Time of Service: 10:25 Occupational Therapy Notes 02/04/18 OT went to see pt. Per nursing report, Pt going down to have chest xray performed at this time. Suzanne Javier OTR/L
--- NOTE | 2018-02-04 10:34 | PDOC.CMPRO ---
Care Management Progress Note S/O: Brendan was brought down for a KELLEE but per RNCC it was deemed Brendan was not stable enough to complete the procedure. He had a chest xray and EKG to inform next steps. Brendan was sleeping when CM attempted to meet with him; CM will continue to follow. A: 57 year old male admitted to [facility] 01/26/18 for Hypotension, Dehydration, JESUS on CKD, UTI P: Brendan will return to the [facility] when ready per MD, he will likely require terminal operator IV ABX of which the [facility] is only able to offer once per day at this time. He will transport via the [facility] W/C van. The facility will manage his further needs.
[2018-02-04 10:35] LABS: Troponin I 0.02 ng/mL (0.00-0.06)
[2018-02-04] MEDS: cloNIDine 0.1 MG TAB 0.3 MG PO ×3 (11:24→21:12)
[2018-02-04] MEDS: carBAMazepine 100 MG CHEW PO ×3 (11:25→21:12)
[2018-02-04] MEDS: hydrOXYzine HCL 25 MG TAB 12.5 MG PO ×3 (11:25→21:13)
[2018-02-04] MEDS: Ferrous Sulfate 325 MG TAB PO ×2 (11:25→21:12)
[2018-02-04] MEDS: Cyanocobalamin 500 MCG TAB 1000 MCG PO (11:26)
[2018-02-04] MEDS: Omega-3 Fatty Acids 1000 MG CAP PO (11:26)
[2018-02-04] MEDS: Furosemide 40 MG TAB PO (11:26)
[2018-02-04] MEDS: Folic Acid 1 MG TAB PO (11:26)
[2018-02-04] MEDS: Multivitamin w/Minerals TAB 1 TAB PO (11:27)
[2018-02-04] MEDS: Aspirin E.C. 81 MG TABEC PO ×2 (11:27→21:12)
[2018-02-04] MEDS: Venlafaxine 75 MG TAB 37.5 MG PO ×3 (11:27→21:11)
[2018-02-04] MEDS: Carvedilol 6.25 MG TAB PO ×2 (11:28→21:14)
[2018-02-04] MEDS: Gabapentin 300 MG CAP PO ×3 (11:28→21:11)
[2018-02-04] MEDS: amLODIPine 5 MG TAB 10 MG PO (11:28)
[2018-02-04] MEDS: predniSONE 10 MG TAB PO (11:29)
[2018-02-04] MEDS: Sertraline 25 MG TAB PO (11:29)
[2018-02-04] MEDS: Insulin Glargine 300 UNITS/3 ML PEN 30 UNITS SC (11:30)
[2018-02-04] MEDS: methylPREDNISolone SUCC 40 MG VIAL IVP ×2 (11:31→19:26)
[2018-02-04] MEDS: Heparin 5,000 UNITS/ML VIAL 5000 UNITS SC ×2 (11:31→21:16)
[2018-02-04] MEDS: Omeprazole 20 MG CAPCR PO (11:32)
[2018-02-04] MEDS: Collagenase 30 GM TUBE TP (11:32)
[2018-02-04] MEDS: Albuterol/Ipratropium 3 ML UPD VIAL UPD ×2 (11:47→18:59)
[2018-02-04] MEDS: Furosemide 40 MG/4 ML VIAL IVP (12:56)
[2018-02-04 15:48] LABS: Troponin I 0.02 ng/mL (0.00-0.06)
--- NOTE | 2018-02-04 16:02 | PGE_ITS ---
Date of Service Date of service: 02/04/18 Time of Service: 16:00 Assessment and Plan (1) MRSA bacteremia: Current visit: Yes Status: Resolved With original blood cultures positive for Bacteremia. Repeat blood cultures negative. Continue Vancomycin, currently on day #7. TTE showed no evidence of vegetation. He was scheduled for KELLEE today, this was cancelled due to tenuous respiratory status. Chest x-ray today revealed small right pleural effusion. Schedule nebulizer treatments, IV steroids. Repeat labs in the morning. (2) JESUS (acute kidney injury): Current visit: Yes Status: Acute Baseline Cr of 1.6-1.8, currently 2. Continue to avoid nephrotoxic drugs and renally dose medications. Repeat BMP in the morning. (3) Hypertension: Current visit: No Status: Chronic Blood pressure within an acceptable range. Continue amlodipine, continue to monitor blood pressures. (4) Diabetes mellitus type 2, controlled: Current visit: No Status: Chronic Blood sugars increasing. He is eating well, his lantus was increased back to his home dose of 30 units daily. Schedule Aspart insulin, 1 unit for every 10 grams of carbohydrates with meals. Continue to monitor blood sugar. (5) Anemia: Current visit: No Status: Chronic His hgb improved to 9.1 today with 2 units packed red blood cells yesterday. Continue to monitor CBC. (6) Hypomagnesemia: Current visit: Yes Status: Acute Replete and continue to follow. (7) IV infiltration: Current visit: Yes Status: Acute Imrpoving. Right arm remains mildly swollen. CMST intact. (8) DVT prophylaxis: Current visit: No Status: Acute Subcutaneous heparin. (9) Discharge planning issues: Current visit: Yes Status: Acute He is a FULL code. He is a resident of the [facility]. This case was discussed with Dr. Bravo who is in agreement. Subjective Interval history since last seen: Brendan is a 57 yo with multiple medical problems, resident of the [facility], who is currently being treated for sepsis with MRSA bacteremia and JESUS d/t dehydration. His renal function is improving. He remains drowsy today. He awakens easily to verbal stimuli. He denies any diffi culty breathing (although he appears to have increased work of breathing), he denies chest pain/pressure, palpitations. He reports that he is hungry. He was scheduled for a KELLEE this morning but his respiratory status was in question and the procedure was cancelled. His repeat blood cultures are negative. Exam Narrative Exam Narrative: General: Obese middle-aged male, very drowsy, appears pale and diaphoretic. Neurological: Pupils are equal, round and reactive to light, no focal deficits, answers questions appropriately, moves extremities freely. HEENT: normocephalic, atraumatic, mucous membranes moist, very poor dentition, missing many teeth, no JVD Cardiovascular: RRR, distant heart sounds, unable to discern if there is a murmur. Lungs: mildly increased work of breathing, diminished lung sounds with expiratory wheeze throughout with accessory muscle use noted (improved this afternoon). No rales noted. Gastrointestinal: abdomen soft, nontender, nondistended; cholecystostomy drain in place - draining nonpurulent fluid; Ostomy in place and draining. Extremities: Edema to bilateral upper and lower extremities. RUE edema improving. Pedal pulses palpable bilaterally. Skin: excoriations over bilateral lower extremities, healing, he has venous stasis changes to BLEs. Also with sores to bilateral feet. Objective Objective Clinical Data: Abnormal lab results 02/02/18 02/03/18 02/04/18 Range/Units 06:15 07:21 03:55 WBC 13.48 H (4.4-10.8) k/cumm RBC 3.34 L (4.50-6.00) m/cumm Hgb 7.2 L 9.0 L (13.5-17.5) g/dL Hct 24.6 L 28.6 L (40.0-50.0) % MCV 73.7 L (80-95) fL MCH 21.6 L (27.0-33.0) pg MCHC 29.3 L (32.0-36.0) g/dL RDW 21.1 H (11.8-14.1) % Plt Count 464 H (130-400) x1000/uL Absolute Neutrophils 9.38 H (1.2-6.7) k/cumm Absolute Lymphocytes 1.02 L (1.2-3.4) k/cumm Absolute Monocytes 0.90 H (0.11-0.7) k/cumm Absolute Eosinophils 2.04 H (0.0-0.7) k/cumm Chloride (98-107) mmol/L BUN (7-18) mg/dL Creatinine (0.70-1.30) mg/dL Glucose (70-100) mg/dL Magnesium (1.8-2.4) mg/dL Crossmatch See Detail 02/04/18 02/04/18 Range/Units 07:38 07:38 WBC 14.02 H (4.4-10.8) k/cumm RBC 3.94 L (4.50-6.00) m/cumm Hgb 9.1 L (13.5-17.5) g/dL Hct 29.2 L (40.0-50.0) % MCV 74.1 L (80-95) fL MCH 23.1 L (27.0-33.0) pg MCHC 31.2 L (32.0-36.0) g/dL RDW 20.7 H (11.8-14.1) % Plt Count 473 H (130-400) x1000/uL Absolute Neutrophils 9.83 H (1.2-6.7) k/cumm Absolute Lymphocytes 1.08 L (1.2-3.4) k/cumm Absolute Monocytes 1.18 H (0.11-0.7) k/cumm Absolute Eosinophils 1.85 H (0.0-0.7) k/cumm Chloride 110 H (98-107) mmol/L BUN 33 H (7-18) mg/dL Creatinine 2.00 H (0.70-1.30) mg/dL Glucose 181 H (70-100) mg/dL Magnesium 1.7 L (1.8-2.4) mg/dL Crossmatch Vital Signs Temperature 36.9 C 02/04/18 11:17 Temperature Source Tympanic 02/04/18 11:17 Pulse 78 02/04/18 11:17 Pulse Rhythm Regular 02/04/18 09:30 Pulse 73 01/28/18 18:00 Respiratory Rate 20 02/04/18 11:17 Respiratory Effort Accessory Muscle Use 02/04/18 09:30 Respiratory Depth Normal 02/04/18 09:30 Respiratory Pattern Normal 02/04/18 09:30 Blood Pressure 153/68 H 02/04/18 11:17 Blood Pressure Mean 94 01/28/18 17:14 Blood Pressure Position Supine 01/28/18 16:55 Pulse Oximetry 100 02/04/18 11:17 Oxygen Delivery Method Nasal Cannula 02/04/18 11:17 Oxygen Flow Rate 2 02/04/18 11:17 Pain Level 0 02/03/18 16:10 Comment 02/04/18 08:10 Intake & Output 02/03/18 02/04/18 02/04/18 23:59 11:59 23:59 Intake Total 1078 / 1078 1230 / 1230 10 Output Total 1650 / 1650 800 / 800 300 / 300 Balance -572 / -572 430 / 430 -290 / -290 Weight 112.1 kg Intake: IV 250 / 250 630 / 630 Oral 540 / 540 Blood Product 288 / 288 600 / 600 Rbc Leuko Reduced Unit 600 / 600 [id number] Rbc Leuko Reduced Unit 288 / 288 [id number]* Output: Drainage 100 / 100 100 / 100 Right Lateral Abdomen 100 / 100 100 / 100 Urine 900 / 900 600 / 600 300 / 300 Stool 650 / 650 100 / 100 Other: Urine Color Yellow Yellow Yellow Urine Appearance Clear Clear Clear Urine Odor Normal Voiding Methods Urinal Urinal Urinal Laboratory Results WBC 14.02 k/cumm (4.4-10.8) H 02/04/18 07:38 RBC 3.94 m/cumm (4.50-6.00) L 02/04/18 07:38 Hgb 9.1 g/dL (13.5-17.5) L 02/04/18 07:38 Hct 29.2 % (40.0-50.0) L 02/04/18 07:38 MCV 74.1 fL (80-95) L 02/04/18 07:38 MCH 23.1 pg (27.0-33.0) L 02/04/18 07:38 MCHC 31.2 g/dL (32.0-36.0) L 02/04/18 07:38 RDW 20.7 % (11.8-14.1) H 02/04/18 07:38 Plt Count 473 x1000/uL (130-400) H 02/04/18 07:38 MPV 9.0 fL (8.0-11.0) 02/04/18 07:38 Immature Gran % 0.2 02/04/18 07:38 Neutrophils % 70.1 02/04/18 07:38 Lymphocytes % 7.7 02/04/18 07:38 Monocytes % 8.4 02/04/18 07:38 Eosinophils % 13.2 02/04/18 07:38 Basophils % 0.4 02/04/18 07:38 Absolute Neutrophils 9.83 k/cumm (1.2-6.7) H 02/04/18 07:38 Absolute Lymphocytes 1.08 k/cumm (1.2-3.4) L 02/04/18 07:38 Absolute Monocytes 1.18 k/cumm (0.11-0.7) H 02/04/18 07:38 Absolute Eosinophils 1.85 k/cumm (0.0-0.7) H 02/04/18 07:38 Absolute Basophils 0.06 k/cumm (0.0-0.2) 02/04/18 07:38 Differential Comment Diff reviewed 02/04/18 07:38 RBC Morphology See below 02/04/18 07:38 Polychromasia Present 02/04/18 07:38 Hypochromasia 3+ 02/04/18 07:38 Poikilocytosis 2+ 02/04/18 07:38 Anisocytosis 2+ 02/04/18 07:38 Microcytosis 3+ 02/04/18 07:38 Tear Drop Cells 2+ 01/29/18 06:45 Ovalocytes 2+ 02/01/18 06:15 PT 11.5 sec (9.3-10.8) H 01/26/18 17:28 INR 1.2 (1.0-3.5) 01/26/18 17:28 APTT 26.2 sec (21.0-31.4) 01/26/18 17:28 Sodium 142 mmol/L (136-145) 02/04/18 07:38 Potassium 4.2 mmol/L (3.5-5.1) 02/04/18 07:38 Chloride 110 mmol/L (98-107) H 02/04/18 07:38 Carbon Dioxide 22.0 mmol/L (21.0-32.0) 02/04/18 07:38 Anion Gap 10.0 mmol/L (3-11) 02/04/18 07:38 BUN 33 mg/dL (7-18) H 02/04/18 07:38 Creatinine 2.00 mg/dL (0.70-1.30) H 02/04/18 07:38 Estimated GFR/1.73 m2 34.49 (mL/min/1.73m2) 02/04/18 07:38 Glucose 181 mg/dL (70-100) H 02/04/18 07:38 Lactate 0.8 mmol/L (0.6-1.4) 01/27/18 14:35 Calcium 8.6 mg/dL (8.5-10.1) 02/04/18 07:38 Magnesium 1.7 mg/dL (1.8-2.4) L 02/04/18 07:38 Iron 17 ug/dL (50-175) L 01/30/18 07:10 TIBC 191 ug/dL (250-450) L 01/30/18 07:10 Transferrin % Sat 9 % (20-55) L 01/30/18 07:10 Ferritin 93 ng/mL (8-388) 01/30/18 07:10 Total Bilirubin 0.3 mg/dL (0.2-1.0) 01/27/18 06:10 AST 10 U/L (15-37) L 01/27/18 06:10 ALT 17 U/L (12-78) 01/27/18 06:10 Alkaline Phosphatase 316 U/L (46-116) H 01/27/18 06:10 Creatine Kinase 17 U/L (39-308) L 01/27/18 06:10 Troponin I 0.02 ng/mL (0.00-0.06) 02/04/18 15:10 C-Reactive Protein 6.02 mg/dL (0.0-0.3) H 01/31/18 06:17 Total Protein 7.4 g/dL (6.4-8.2) 01/27/18 06:10 Albumin 2.1 g/dL (3.4-5.0) L 01/27/18 06:10 TSH 0.54 uIU/mL (0.358-3.74) 01/26/18 17:15 Urine Color Yellow (Yellow) 01/31/18 15:15 Urine Clarity Clear 01/31/18 15:15 Urine pH 5.5 (5-8) 01/31/18 15:15 Ur Specific [place] 1.015 (1.005-1.025) 01/31/18 15:15 Urine Protein Trace mg/dL (Negative) H 01/31/18 15:15 Urine Ketones Negative mg/dL (Negative) 01/31/18 15:15 Urine Blood Small (Negative) H 01/31/18 15:15 Urine Nitrite Negative (Negative) 01/31/18 15:15 Urine Bilirubin Negative (Negative) 01/31/18 15:15 Urine Urobilinogen 0.2 EU/dL (Up TO 0.2) 01/31/18 15:15 Ur Leukocyte Esterase Small (Negative) H 01/31/18 15:15 Urine RBC 0-2 (0-2) 01/31/18 15:15 Urine WBC >50 HPF (0-5) 01/31/18 15:15 Ur Epithelial Cells Rare HPF (Negative) 01/31/18 15:15 Urine Crystals Negative HPF (Negative) 01/31/18 15:15 Urine Bacteria Few HPF (Negative) 01/31/18 15:15 Urine Casts 0-2 coarse granular LPF (Negative) 01/31/18 15:15 Urine Mucus Trace (Negative) 01/31/18 15:15 Urine Other Few transitional (Negative) 01/31/18 15:15 Ur Culture Indicated? Yes 01/31/18 15:15 Urine Glucose Negative mg/dL (Negative) 01/31/18 15:15 Vancomycin Trough 20.8 ug/mL (10.0-20.0) H* 02/02/18 09:20 Random Vancomycin 11.7 ug/mL (5.0-10.0) H* 01/28/18 06:30 Path Cons Comment 02/02/18 06:15 Patient ABO/Rh AB Negative 02/03/18 07:21 Antibody Screen Negative 02/03/18 07:21 Crossmatch See Detail 02/03/18 07:21
[2018-02-04] MEDS: VANCOMYCIN 1,000 MG in Normal Saline 250 ML 250 MG IV (16:36)
[2018-02-04] MEDS: Insulin Aspart 300 UNITS/3 ML PEN SC (17:52)
[2018-02-04 19:07] LABS: Troponin I 0.02 ng/mL (0.00-0.06)
[2018-02-04] MEDS: Magnesium Chloride 64 MG TABCR PO (21:11)
[2018-02-04] MEDS: risperiDONE 1 MG TAB 3 MG PO (22:59)
[2018-02-04] MEDS: Melatonin 3 MG TAB 9 MG PO (23:00)
[2018-02-05] MEDS: Normal Saline Flush 10 ML SYR IVP ×4 (03:13→18:44)
[2018-02-05] MEDS: methylPREDNISolone SUCC 40 MG VIAL IVP ×3 (03:13→18:43)
[2018-02-05 03:20] VITALS: BP 159/84; PULSE 60; RESP 18; TEMP 36.7; O2SAT 99
[2018-02-05] MEDS: Albuterol/Ipratropium 3 ML UPD VIAL UPD ×4 (06:33→23:36)
[2018-02-05] MEDS: Levothyroxine 50 MCG TAB PO (06:33)
[2018-02-05 07:30] VITALS: O2SAT 95
[2018-02-05 07:32] LABS: Abs Immature Grans 0.01 k/cumm (0.0-0.09); Absolute Basophil Count 0.03 k/cumm (0.0-0.2); Absolute Eosinophil Count 0.02 k/cumm (0.0-0.7); Absolute Lymphocyte Count 0.46 k/cumm (1.2-3.4); Basophils % 0.4; Eosinophils % 0.3; HCT 29.1 % (40.0-50.0); Immature Grans % 0.1; Lymphocytes % 6.6; Mean Corp. HGB Concentration 30.9 g/dL (32.0-36.0); Mean Corpuscular Hemoglobin 22.8 pg (27.0-33.0); Mean Corpuscular Volume 73.9 fL (80-95); Mean Platelet Volume 9.6 fL (8.0-11.0); Monocytes % 1.4; Neutrophils % 91.2; Platelet Count 464 x1000/uL (130-400); RBC 3.94 m/cumm (4.50-6.00); RBC Distribution Width 20.3 % (11.8-14.1); White Blood Cell Count 6.98 k/cumm (4.4-10.8)
[2018-02-05 07:35] LABS: Absolute Neutrophil Count 6.37 k/cumm (1.2-6.7)
[2018-02-05 07:44] LABS: Anion Gap 10.6 mmol/L (3-11); BUN 40 mg/dL (7-18); C-Reactive Protein 6.94 mg/dL (0.0-0.3); CO2 22.4 mmol/L (21.0-32.0); CREATININE 1.92 mg/dL (0.70-1.30); Calcium 8.6 mg/dL (8.5-10.1); Chloride 106 mmol/L (98-107); Estimated GFR 36.15 (mL/min/1.73m2); Glucose 265 mg/dL (70-100); Magnesium 1.7 mg/dL (1.8-2.4); Potassium 4.4 mmol/L (3.5-5.1); Sodium 139 mmol/L (136-145)
--- NOTE | 2018-02-05 07:46 | INPN_ITS ---
Date of service: 02/05/18 Time of Service: 07:45 PT Notes Inpatient Physical Therapy Progress Note Date: 02/05/18 Dates of Service: 01/28/18-02/05/18 PRECAUTIONS: Fall precautions, Contact precautions SUBJECTIVE: NT OBJECTIVE 01/28/18-02/05/18 Bed Mobility/Transfers: Supine-sit: independent Sit-supine: SBA Sit-stand: SBA with FWW Stand-sit: SBA with FWW Bed-chair: CGA with FWW Gait: SBA-CGA with FWW [id number] Balance: Static Sitting: normal Dynamic Sitting: normal Static Standing: fair Dynamic Standing: fair Assessment: Pt is a 57yr old male admitted with hypotension, dehydrations, sepsis, acute kidney injury, urinary tract infections, hypokalemia, right lateral foot ulcer and right great toe ulcer in setting of Bipolar Disorder, chronic back pain, lower extremity edema, obesity, diabetes mellitus, diabetic neuropathy, diabetic foot ulcers, rheumatoid arthritis, osteoarthritis bilateral knees, sacral decubitus ulcer, chronic renal insufficiency, coronary artery disease. Patient has been seen for 7 PT visits in the past week, has refused therapy sessions 4 PT visits in the past week. Pt has not made progress with therapy intervention since last week, is independent with bed mobility, SBA with standing transfers and performs limited gait 20ft with FWW CGA. Pt is not motivated to participate in therapy intervention, awaiting medical evaluation to see if medical condition is affecting functional performance or if it is just decreased motivation. Continue skilled therapy intervention x 1 more week to see if patient will participate and be able to progress with strength and functional mobility. Plan is return to the [facility] when medically cleared. Goals: Goals X1 week 1. Supine-Sit independent 2. Sit-Supine independent 3. Sit-Stand supervision with FWW 4. Stand-Sit supervision 5. Bed-Chair supervision with FWW 6. Chair-Bed supervision with FWW 7. Gait SBA with FWW 65ftx2 Pt has not met therapy goals, continue skilled PT Plan of Care/Treatment Plan: Continue 1-2x/day, 7 days/week x 1 week. Continue plan of care has been reviewed with the BARGEMAN providing the service under Physical Therapy direction. Continue Physical Therapy intervention for strengthening, bed mobility, transfers, gait, stairs, balance training, use of assistive device. DISCHARGE RECOMMENDATIONS: Return to the [facility] Yolanda Ochoaer PT
[2018-02-05 08:20] LABS: ESR 87 MM/HR (1-20)
[2018-02-05 08:30] VITALS: BP 189/74; PULSE 69; RESP 18; TEMP 35.7; O2SAT 99
--- NOTE | 2018-02-05 08:51 | OT.INNT ---
Date of service: 02/05/18 Time of Service: 08:51 Occupational Therapy Notes 02/05/18 OT went to see pt, pt was sleeping and having IV placement. OT will attempt to see pt later this morning. DAVID Hi/L
--- NOTE | 2018-02-05 09:36 | OT.INNT ---
Date of service: 02/05/18 Time of Service: 09:36 Occupational Therapy Notes 02/05/18 OT went to check in with pt. Pt was lying in the bed, he opened his eyes but did not respond to OT.
--- NOTE | 2018-02-05 09:41 | OT.INPN ---
Date of service: 02/05/18 Time of Service: 09:41 Occupational Therapy Notes Occupational Therapy Inpatient Progress Note Date: 02/05/18 Dates of Service: 01/28/18-02/05/18 PRECAUTIONS: Fall Risk, Contact Precautions SUBJECTIVE: NT OBJECTIVE: Dates of Service: 01/28/18-02/05/18 BATHING: Upper Body: Able to wash hands (I) prior to past couple days. Pt is now not currently performing any ADL routines unless max (A). EATING: Pt was requiring min-mod (A) but is now not currently performing any ADL routines unless max (A). Strengthening: Decreased functional weakness and unable to perform ADLs at this time. ASSESSMENT: Patient is a 57-year-old male referred to occupational therapy services after being admitted through the ER at [facility] for lethargy and hallucinations. Pt was seen previously at [facility] on 12/23/17 for sepsis due to diabetic ulcers in setting of Bipolar Disorder, chronic back pain, lower extremity edema, obesity, diabetes mellitus, diabetic neuropathy, diabetic foot ulcers, rheumatoid arthritis, osteoarthritis bilateral knees, sacral decubitus ulcer, chronic renal insufficiency, coronary artery disease, crohn's disease, s/p colectomy, anemia, urinary tract infection, dyslipidemia, hypoandrogenism, cholelithiasis, hypertension. Pt has made significant decline in medical status at this time. OT went in to see pt today and he opened his eyes and then closed them. When OT asked if he was interested in participating in OT services he closed his eyes. OT will hold on skilled services for today and will check in with pt tomorrow. At this time pt has not met any of his OT goals and has significantly declined in his (I) with ADLs. OT recommends that pt still return to [facility] when medically cleared per MD. At this time pt has been seen for 3 OT sessions and has refused 2. It is unclear at this time whether this is due to pts motivation or the fact that pt may be experiencing something medical. Pt would benefit from skilled OT intervention for initiation of strengthening and ROM program as well as facilitation of increased (I) in ADL routine. GOALS 1. Transfers SBA, FWW 2. Dressing: Sitting on side of bed, pt will be able to put at least one of his UE into the hospital gown (I) with min verbal cues. 3. Bathing: Sitting on side of bed pt will be able to wash face, (B) UE and abdomen (I) with min verbal cues. 4. Eating: Pt will be able to cut his own food with use of adaptive equipment and min verbal cues. Pt was previously able to meet goal 4, however at this time pt is not performing any ADLs unless max-mod (A). PLAN: Return to the [facility]. TREATMENT CODES/TIME: G Codes in the area of self- : washing oneself, toileting, dressing, eating and drinking, current status GO [id number] CL projected status GO [id number]. Discharge status (if discharging) GO [id number]. Pts current AMPAC score of 7, CMS score 92.44% compared to evluation AMPAC score of 12, CMS score 66.57%. Suzanne Javier, OTR/L
[2018-02-05] MEDS: Heparin 5,000 UNITS/ML VIAL 5000 UNITS SC ×2 (10:07→20:51)
[2018-02-05] MEDS: Insulin Aspart 300 UNITS/3 ML PEN SC ×5 (10:07→17:26)
[2018-02-05] MEDS: Insulin Glargine 300 UNITS/3 ML PEN 30 UNITS SC (10:08)
[2018-02-05] MEDS: MAGNESIUM SULFATE 1 GM/100 ML BAG IVPB (10:09)
[2018-02-05] MEDS: Collagenase 30 GM TUBE TP (10:09)
[2018-02-05] MEDS: Multivitamin w/Minerals TAB 1 TAB PO (10:09)
[2018-02-05] MEDS: amLODIPine 5 MG TAB 10 MG PO (10:10)
[2018-02-05] MEDS: carBAMazepine 100 MG CHEW PO ×3 (10:10→20:50)
[2018-02-05] MEDS: Gabapentin 300 MG CAP PO ×3 (10:10→20:50)
[2018-02-05] MEDS: Folic Acid 1 MG TAB PO (10:10)
[2018-02-05] MEDS: Aspirin E.C. 81 MG TABEC PO ×2 (10:10→20:50)
[2018-02-05] MEDS: Ferrous Sulfate 325 MG TAB PO ×2 (10:10→20:50)
[2018-02-05] MEDS: cloNIDine 0.1 MG TAB 0.3 MG PO ×3 (10:11→20:50)
[2018-02-05] MEDS: Omega-3 Fatty Acids 1000 MG CAP PO (10:12)
[2018-02-05] MEDS: Magnesium Chloride 64 MG TABCR PO ×2 (10:12→20:51)
[2018-02-05] MEDS: Sertraline 25 MG TAB PO (10:12)
[2018-02-05] MEDS: Carvedilol 6.25 MG TAB PO ×2 (10:12→20:50)
[2018-02-05] MEDS: predniSONE 10 MG TAB PO (10:12)
[2018-02-05] MEDS: hydrOXYzine HCL 25 MG TAB 12.5 MG PO ×3 (10:13→22:58)
[2018-02-05] MEDS: Omeprazole 20 MG CAPCR PO (10:13)
[2018-02-05] MEDS: Cyanocobalamin 500 MCG TAB 1000 MCG PO (10:13)
[2018-02-05] MEDS: Venlafaxine 75 MG TAB 37.5 MG PO ×3 (10:14→20:50)
[2018-02-05 10:25] LABS: TSH 0.46 uIU/mL (0.358-3.74)
--- NOTE | 2018-02-05 11:15 | PT.INNT ---
Date of service: 02/05/18 Time of Service: 11:15 PT Notes 02/05/18 Hold PT. Patient unable to participate in PT. Patient lethargic and not responsive to verbal stimulation.
[2018-02-05 12:39] VITALS: BP 157/77; PULSE 54; RESP 20; TEMP 36; O2SAT 100
--- NOTE | 2018-02-05 14:20 | PDOC.CMPRO ---
Care Management Progress Note S/O: Brendan remains acute at this time, being closely monitored. CM will continue to follow. A: 57 year old male admitted to [facility] 01/26/18 for Hypotension, Dehydration, JESUS on CKD, UTI P: Brendan will return to the [facility] when ready per MD, he will likely require staff pharmacist IV ABX of which the [facility] is only able to offer once per day at this time. He will transport via the [employer] W/C van. The facility will manage his further needs.
--- NOTE | 2018-02-05 14:24 | CMPROGNOTE_ITS ---
Care Management Progress Note S/O: Brendan remains acute at this time, being closely monitored. CM will continue to follow. A: 57 year old male admitted to [facility] 01/26/18 for Hypotension, Dehydration, JESUS on CKD, UTI P: Brendan will return to the [facility] when ready per MD, he will likely require laborer marine terminal IV ABX of which the [facility] is only able to offer once per day at this time. He will transport via the [employer] W/C van. The facility will manage his further needs.
--- NOTE | 2018-02-05 16:56 | W.PM.PROGNOT ---
Documented by User: Racquel Cole NP 02/05/18 17:37 Date of Service Date of service: 02/05/18 Time of Service: 17:20 Assessment and Plan (1) MRSA bacteremia: Current visit: No Status: Resolved With original blood cultures positive for Bacteremia. Repeat blood cultures negative. Continue Vancomycin, currently on day #8. TTE showed no evidence of vegetation. KELLEE cancelled yesterday due to tenuous respiratory status. Chest x-ray yesterday revealed small right pleural effusion. Continue scheduled nebulizer treatments, IV steroids. Repeat labs in the morning. (2) JESUS (acute kidney injury): Current visit: No Status: Acute Baseline Cr of 1.6-1.8, currently 1.92. Continue to avoid nephrotoxic drugs and renally dose medications. Repeat BMP in the morning. (3) Hypertension: Current visit: No Status: Chronic Blood pressure within an acceptable range. Continue amlodipine, continue to monitor blood pressures. (4) Diabetes mellitus type 2, controlled: Current visit: No Status: Chronic Blood sugars increased, he is on steroids. He is eating well, his lantus is back at his home dose of 30 units daily. Continue scheduled Aspart insulin, 1 unit for every 10 grams of carbohydrates with meals. Continue to monitor blood sugar. (5) Anemia: Current visit: No Status: Chronic His hgb stable today, received 2 units packed red blood cells on 02/03/18. Continue to monitor CBC. (6) Hypomagnesemia: Current visit: No Status: Acute Replete and continue to follow. (7) DVT prophylaxis: Current visit: No Status: Acute Subcutaneous heparin. (8) Discharge planning issues: Current visit: No Status: Acute He is a FULL code. He is a resident of the [facility]. This case was discussed with Dr. Bravo who is in agreement. Subjective Interval history since last seen: Brendan is a 57 yo with multiple medical problems, resident of the [facility], who is currently being treated for sepsis with MRSA bacteremia and JESUS d/t dehydration. His repeat blood cultures have been negative. His renal function is improving, he is near his baseline today. He received 2 units of PRBCs two days ago. He is sitting up in the chair today, he has not been out of bed for a couple of days. He reports feeling tired, but more like himself. He denies any difficulty breathing, he denies chest pain/pressure, palpitations. He is eating and drinking, no nausea, vomiting, diarrhea. Exam Narrative Exam Narrative: General: Obese middle-aged male, he is up in the chair, falling asleep. Neurological: Pupils are equal and round, no focal deficits, answers questions appropriately, moves extremities freely. HEENT: normocephalic, atraumatic, mucous membranes moist, very poor dentition, missing many teeth, no JVD Cardiovascular: RRR, distant heart sounds, unable to discern if there is a murmur. Lungs: Respirations even and unlabored, diminished lung sounds throughout, no rales, rhonchi or wheezing. Gastrointestinal: abdomen soft, nontender, nondistended; cholecystostomy drain in place, draining nonpurulent fluid; Ostomy in place and draining, stoma pink. Extremities: Edema to bilateral lower extremities and right upper extremities. RUE edema improving. Pedal pulses palpable bilaterally. Deep purple discoloration to bilateral lower extremities. Skin: excoriations over bilateral lower extremities, healing, he has venous stasis changes to BLEs. Also with sores to bilateral feet. Documented by User: Maryann Huggins RDN 03/02/18 13:06
[2018-02-05] MEDS: VANCOMYCIN 1,000 MG in Normal Saline 250 ML 250 MG IV (17:25)
[2018-02-05 20:09] VITALS: BP 190/90; PULSE 74; RESP 20; TEMP 36.9; O2SAT 96
[2018-02-05] MEDS: risperiDONE 1 MG TAB 3 MG PO (22:58)
[2018-02-05] MEDS: Melatonin 3 MG TAB 9 MG PO (22:59)
[2018-02-06] MEDS: Normal Saline Flush 10 ML SYR IVP ×3 (03:12→17:21)
[2018-02-06] MEDS: methylPREDNISolone SUCC 40 MG VIAL IVP ×3 (03:12→17:21)
[2018-02-06] MEDS: hydrOXYzine HCL 25 MG TAB 12.5 MG PO ×4 (03:13→20:51)
[2018-02-06 04:01] VITALS: BP 184/90; PULSE 62; RESP 18; TEMP 36.5; O2SAT 95
[2018-02-06] MEDS: Albuterol/Ipratropium 3 ML UPD VIAL UPD (05:13)
[2018-02-06] MEDS: Levothyroxine 50 MCG TAB PO (05:14)
[2018-02-06 07:34] LABS: Abs Immature Grans 0.02 k/cumm (0.0-0.09); Absolute Basophil Count 0.01 k/cumm (0.0-0.2); Absolute Eosinophil Count 0.03 k/cumm (0.0-0.7); Absolute Lymphocyte Count 0.59 k/cumm (1.2-3.4); Absolute Monocyte Count 0.26 k/cumm (0.11-0.7); Absolute Neutrophil Count 6.74 k/cumm (1.2-6.7); Basophils % 0.1; Eosinophils % 0.4; HGB 8.9 g/dL (13.5-17.5); Immature Grans % 0.3; Lymphocytes % 7.7; Mean Corp. HGB Concentration 31.8 g/dL (32.0-36.0); Mean Corpuscular Hemoglobin 23.1 pg (27.0-33.0); Mean Corpuscular Volume 72.5 fL (80-95); Mean Platelet Volume 9.6 fL (8.0-11.0); Monocytes % 3.4; Neutrophils % 88.1; Platelet Count 441 x1000/uL (130-400); RBC 3.86 m/cumm (4.50-6.00); RBC Distribution Width 20.1 % (11.8-14.1); White Blood Cell Count 7.65 k/cumm (4.4-10.8)
[2018-02-06 07:46] LABS: Anion Gap 12.3 mmol/L (3-11); BUN 51 mg/dL (7-18); CO2 20.7 mmol/L (21.0-32.0); CREATININE 2.05 mg/dL (0.70-1.30); Calcium 8.8 mg/dL (8.5-10.1); Chloride 104 mmol/L (98-107); Estimated GFR 33.52 (mL/min/1.73m2); Glucose 315 mg/dL (70-100); Magnesium 1.8 mg/dL (1.8-2.4); Potassium 5.2 mmol/L (3.5-5.1); Sodium 137 mmol/L (136-145)
[2018-02-06 07:55] LABS: Anisocytosis 3+; Basophilic Stippling Present; Diff Comment Diff Reviewed; Hypochromasia 2+; Microcytosis 2+; Polychromasia Present
[2018-02-06 07:56] LABS: Poikilocytes 2+; Schistocytes 1+
[2018-02-06 08:58] VITALS: BP 194/92; PULSE 83; RESP 19; TEMP 36.9; O2SAT 92
[2018-02-06] MEDS: Ferrous Sulfate 325 MG TAB PO ×2 (08:58→20:54)
[2018-02-06] MEDS: Cyanocobalamin 500 MCG TAB 1000 MCG PO (08:58)
[2018-02-06] MEDS: Folic Acid 1 MG TAB PO (08:58)
[2018-02-06] MEDS: cloNIDine 0.1 MG TAB 0.3 MG PO ×3 (08:58→21:05)
[2018-02-06] MEDS: Heparin 5,000 UNITS/ML VIAL 5000 UNITS SC ×2 (08:58→20:51)
[2018-02-06] MEDS: Gabapentin 300 MG CAP PO ×3 (08:58→20:54)
[2018-02-06] MEDS: predniSONE 10 MG TAB PO (08:59)
[2018-02-06] MEDS: Omeprazole 20 MG CAPCR PO (08:59)
[2018-02-06] MEDS: Terazosin 2 MG CAP PO ×2 (08:59→20:54)
[2018-02-06] MEDS: Metoprolol 25 MG TAB PO ×2 (08:59→20:54)
[2018-02-06] MEDS: Aspirin E.C. 81 MG TABEC PO ×2 (08:59→20:54)
[2018-02-06] MEDS: Omega-3 Fatty Acids 1000 MG CAP PO (09:00)
[2018-02-06] MEDS: Sertraline 25 MG TAB PO (09:00)
[2018-02-06] MEDS: carBAMazepine 100 MG CHEW PO ×3 (09:00→20:52)
[2018-02-06] MEDS: Multivitamin w/Minerals TAB 1 TAB PO (09:00)
[2018-02-06] MEDS: Magnesium Chloride 64 MG TABCR PO ×2 (09:01→20:53)
[2018-02-06] MEDS: amLODIPine 5 MG TAB 10 MG PO (09:01)
[2018-02-06] MEDS: Insulin Aspart 300 UNITS/3 ML PEN SC ×5 (09:01→17:22)
[2018-02-06] MEDS: Venlafaxine 75 MG TAB 37.5 MG PO ×3 (09:01→20:52)
[2018-02-06] MEDS: Insulin Glargine 300 UNITS/3 ML PEN 30 UNITS SC (09:01)
--- NOTE | 2018-02-06 09:17 | OT.INTREAT ---
Date of service: 02/06/18 Time of Service: 08:50 Occupational Therapy Notes Occupational Therapy Inpatient Treatment Note Date: 02/06/18 PRECAUTIONS: Contact Precautions SUBJECTIVE: Pt was sitting on side of bed when OT arrived. He was agreeable to OT session. OBJECTIVE: PAIN:no c/o pain EATING: (I) with bringing food to his mouth with (L) UE. OT continues to encourage pt to attempt to open containers before asking for help. Pt reports that he is frustrated when he tries because he feels that his fingers cannot do this well. OT educates pt on the importance of (I) and pt states that I will try it but not today. THEREX: Pt performed the following strengthening and functional dynamic activities during OT session today with good technique and minimal vc: Shoulder flexion (B) 2 sets of 10 Shoulder abduction (B) 2 sets of 10 Blue foam cube squeezes 20x each hand Bicep curls with red thera band 2 sets of 10 (B) Functional shoulder abduction with elbow flexion and external rotation 10x Functional elbow extension with forward bend reaching towards socks to increase (I) in LE dressing 10x each side ASSESSMENT: Pt is much more up beat and receptive to functional activities. Pt was able to tolerate initiation of UE strengthening and demonstrated increased functional ROM to increase (I) in ADLs. Pt would benefit from continued skilled OT intervention for increased functional dynamic strengthening and progression of (I) in ADLs. PLAN: OT will plan to continue to progress pt's functional dynamic movements and (B) UE strengthening to increase (I) in ADLs. TREATMENT CODES/TIME: TPx2, 27 minutes DAVID Hi/Silva
[2018-02-06 09:56] VITALS: BP 184/87; PULSE 60; TEMP 37.1
--- NOTE | 2018-02-06 10:30 | PT.INTREAT ---
Date of service: 02/06/18 Time of Service: 10:30 PT Notes Inpatient Physical Therapy Treatment Note Date: 02/06/18 PRECAUTIONS: Fall, Contact SUBJECTIVE: Brendan states that he is feeling much better today and is willing to participate in PT. OBJECTIVE: PAIN: No c/o pain BED MOBILITY/TRANSFERS Supine-sit: I Sit-stand: SBA Stand-sit: SBA Bed-Chair: SBA GAIT Assistive Device: FWW Weight bearing: Full Assist: SBA Distance: 10' THEREX: Patient completed a LE strengthening program, as per flow sheet. ASSESSMENT: Patient tolerated session well with some c/o fatigue, requiring rest breaks during ther ex. Patient would benefit from continued conditioning and global strengthening for improved mobility. PLAN: Continue with PT's POC TREATMENT CODE/TIME: 30 minutes; TA/TP
--- NOTE | 2018-02-06 10:38 | PGE_ITS ---
Date of Service Date of service: 02/06/18 Time of Service: 10:35 Subjective Patient reports: feels better Exam Narrative Exam Narrative: Brendan is seen at bedside he is awake and lucid. He denies any pain currently in his feet. Vascular exam: His feet are warm to the touch. Pulses are palpable at the ankles although diminished. Calves are soft to palpation. Venous stasis angelo es are noted chronic in nature. Toenails are fungal currently adequately groomed. Ulcerations are noted in the medial aspect of the right great toe at the DIPJ level and over the plantar lateral aspect of the right fifth metatarsal head. Both wounds appear clean. There is no active signs of infection in the wounds. Wound under the great toe has granulated nicely and is dry. Wound under the plantar and lateral aspect of the right fifth metatarsal head is grade 2 with a granular base. Collagenase Santyl has sufficiently debrided the wound, we will consider discontinuing it at this point and switching to Medi honey Muscle groups are 5 out of 5 bilaterally although he is markedly deconditioned. Skeletal exam reveals flexion contractures of the toes with significant deformities noted particularly at the right great toe which is contracted both in the sagittal and transverse plane. Neurologically he is densely neuropathic. Assessment: Stable diabetic wounds of right foot as above. Plan: Recommend continue daily cleansing of the wounds with soap and water. I will discontinue the collagenase Santyl and replace it with Medi honey. The wound on the great toe will be washed also on a daily basis but left open to the air. He needs to wear his extra-depth diabetic shoes when he is out of bed. New shoe gear should be considered after discharge. The wound on the right fifth m etatarsal head may need surgical intervention to fully resolve but he is not medically stable nor is it indicated at this time. We will continue with palliative treatments. I will continue to follow on a as needed basis thank you. I will plan on visiting again later in the week if he remains in-house and make wound care adjustments at that time. Thank you for this consultation. Objective Objective Clinical Data: Abnormal lab results 02/06/18 02/06/18 Range/Units 07:10 07:10 RBC 3.86 L (4.50-6.00) m/cumm Hgb 8.9 L (13.5-17.5) g/dL Hct 28.0 L (40.0-50.0) % MCV 72.5 L (80-95) fL MCH 23.1 L (27.0-33.0) pg MCHC 31.8 L (32.0-36.0) g/dL RDW 20.1 H (11.8-14.1) % Plt Count 441 H (130-400) x1000/uL Absolute Neutrophils 6.74 H (1.2-6.7) k/cumm Absolute Lymphocytes 0.59 L (1.2-3.4) k/cumm Potassium 5.2 H (3.5-5.1) mmol/L Carbon Dioxide 20.7 L (21.0-32.0) mmol/L Anion Gap 12.3 H (3-11) mmol/L BUN 51 H D (7-18) mg/dL Creatinine 2.05 H (0.70-1.30) mg/dL Glucose 315 H (70-100) mg/dL Vital Signs Temperature 37.1 C 02/06/18 09:56 Temperature Source Tympanic 02/06/18 09:56 Pulse 60 02/06/18 09:56 Pulse Rhythm Regular 02/05/18 21:02 Pulse 73 01/28/18 18:00 Respiratory Rate 19 02/06/18 08:58 Respiratory Effort Non-Labored 02/05/18 21:02 Respiratory Depth Normal 02/05/18 21:02 Respiratory Pattern Normal 02/05/18 21:02 Blood Pressure 184/87 H 02/06/18 09:56 Blood Pressure Mean 94 01/28/18 17:14 Blood Pressure Position Supine 01/28/18 16:55 Pulse Oximetry 92 L 02/06/18 08:58 Oxygen Delivery Method Room Air 02/06/18 08:58 Oxygen Flow Rate 0 02/06/18 08:58 Pain Level 0 02/06/18 08:58 Comment 02/04/18 08:10 Intake & Output 02/05/18 02/06/18 02/06/18 18:59 06:59 18:59 Intake Total 270 / 510 240 / 510 260 / 260 Output Total 200 / 1850 1650 / 1850 300 / 300 Balance 70 / -1340 -1410 / -1340 -40 / -40 Weight 111.2 kg Intake: IV 30 / 30 20 / 20 Oral 240 / 480 240 / 480 240 / 240 Output: Drainage 250 / 250 Right Lateral Abdomen 250 / 250 Urine 200 / 950 750 / 950 300 / 300 Stool 650 / 650 Other: Urine Color Yellow Yellow Yellow Urine Appearance Clear Clear Clear Urine Odor None Normal Voiding Methods Urinal Urinal Urinal Laboratory Results WBC 7.65 k/cumm (4.4-10.8) 02/06/18 07:10 RBC 3.86 m/cumm (4.50-6.00) L 02/06/18 07:10 Hgb 8.9 g/dL (13.5-17.5) L 02/06/18 07:10 Hct 28.0 % (40.0-50.0) L 02/06/18 07:10 MCV 72.5 fL (80-95) L 02/06/18 07:10 MCH 23.1 pg (27.0-33.0) L 02/06/18 07:10 MCHC 31.8 g/dL (32.0-36.0) L 02/06/18 07:10 RDW 20.1 % (11.8-14.1) H 02/06/18 07:10 Plt Count 441 x1000/uL (130-400) H 02/06/18 07:10 MPV 9.6 fL (8.0-11.0) 02/06/18 07:10 Immature Gran % 0.3 02/06/18 07:10 Neutrophils % 88.1 02/06/18 07:10 Lymphocytes % 7.7 02/06/18 07:10 Monocytes % 3.4 02/06/18 07:10 Eosinophils % 0.4 02/06/18 07:10 Basophils % 0.1 02/06/18 07:10 Absolute Neutrophils 6.74 k/cumm (1.2-6.7) H 02/06/18 07:10 Absolute Lymphocytes 0.59 k/cumm (1.2-3.4) L 02/06/18 07:10 Absolute Monocytes 0.26 k/cumm (0.11-0.7) 02/06/18 07:10 Absolute Eosinophils 0.03 k/cumm (0.0-0.7) 02/06/18 07:10 Absolute Basophils 0.01 k/cumm (0.0-0.2) 02/06/18 07:10 Differential Comment Diff reviewed 02/06/18 07:10 RBC Morphology See below 02/06/18 07:10 Polychromasia Present 02/06/18 07:10 Hypochromasia 2+ 02/06/18 07:10 Poikilocytosis 2+ 02/06/18 07:10 Basophilic Stippling Present 02/06/18 07:10 Anisocytosis 3+ 02/06/18 07:10 Microcytosis 2+ 02/06/18 07:10 Tear Drop Cells 2+ 01/29/18 06:45 Ovalocytes 2+ 02/01/18 06:15 Schistocytes 1+ 02/06/18 07:10 ESR 87 MM/HR (1-20) H 02/05/18 07:12 PT 11.5 sec (9.3-10.8) H 01/26/18 17:28 INR 1.2 (1.0-3.5) 01/26/18 17:28 APTT 26.2 sec (21.0-31.4) 01/26/18 17:28 Sodium 137 mmol/L (136-145) 02/06/18 07:10 Potassium 5.2 mmol/L (3.5-5.1) H 02/06/18 07:10 Chloride 104 mmol/L (98-107) 02/06/18 07:10 Carbon Dioxide 20.7 mmol/L (21.0-32.0) L 02/06/18 07:10 Anion Gap 12.3 mmol/L (3-11) H 02/06/18 07:10 BUN 51 mg/dL (7-18) H D 02/06/18 07:10 Creatinine 2.05 mg/dL (0.70-1.30) H 02/06/18 07:10 Estimated GFR/1.73 m2 33.52 (mL/min/1.73m2) 02/06/18 07:10 Glucose 315 mg/dL (70-100) H 02/06/18 07:10 Lactate 0.8 mmol/L (0.6-1.4) 01/27/18 14:35 Calcium 8.8 mg/dL (8.5-10.1) 02/06/18 07:10 Magnesium 1.8 mg/dL (1.8-2.4) 02/06/18 07:10 Iron 17 ug/dL (50-175) L 01/30/18 07:10 TIBC 191 ug/dL (250-450) L 01/30/18 07:10 Transferrin % Sat 9 % (20-55) L 01/30/18 07:10 Ferritin 93 ng/mL (8-388) 01/30/18 07:10 Total Bilirubin 0.3 mg/dL (0.2-1.0) 01/27/18 06:10 AST 10 U/L (15-37) L 01/27/18 06:10 ALT 17 U/L (12-78) 01/27/18 06:10 Alkaline Phosphatase 316 U/L (46-116) H 01/27/18 06:10 Creatine Kinase 17 U/L (39-308) L 01/27/18 06:10 Troponin I 0.02 ng/mL (0.00-0.06) 02/04/18 18:33 C-Reactive Protein 6.94 mg/dL (0.0-0.3) H 02/05/18 07:12 Total Protein 7.4 g/dL (6.4-8.2) 01/27/18 06:10 Albumin 2.1 g/dL (3.4-5.0) L 01/27/18 06:10 TSH 0.46 uIU/mL (0.358-3.74) 02/05/18 07:12 Urine Color Yellow (Yellow) 01/31/18 15:15 Urine Clarity Clear 01/31/18 15:15 Urine pH 5.5 (5-8) 01/31/18 15:15 Ur Specific [place] 1.015 (1.005-1.025) 01/31/18 15:15 Urine Protein Trace mg/dL (Negative) H 01/31/18 15:15 Urine Ketones Negative mg/dL (Negative) 01/31/18 15:15 Urine Blood Small (Negative) H 01/31/18 15:15 Urine Nitrite Negative (Negative) 01/31/18 15:15 Urine Bilirubin Negative (Negative) 01/31/18 15:15 Urine Urobilinogen 0.2 EU/dL (Up TO 0.2) 01/31/18 15:15 Ur Leukocyte Esterase Small (Negative) H 12/08/18 15:15 Urine RBC 0-2 (0-2) 01/31/18 15:15 Urine WBC >50 HPF (0-5) 01/31/18 15:15 Ur Epithelial Cells Rare HPF (Negative) 01/31/18 15:15 Urine Crystals Negative HPF (Negative) 01/31/18 15:15 Urine Bacteria Few HPF (Negative) 01/31/18 15:15 Urine Casts 0-2 coarse granular LPF (Negative) 01/31/18 15:15 Urine Mucus Trace (Negative) 01/31/18 15:15 Urine Other Few transitional (Negative) 01/31/18 15:15 Ur Culture Indicated? Yes 01/31/18 15:15 Urine Glucose Negative mg/dL (Negative) 01/31/18 15:15 Vancomycin Trough 20.8 ug/mL (10.0-20.0) H* 02/02/18 09:20 Random Vancomycin 11.7 ug/mL (5.0-10.0) H* 01/28/18 06:30 Path Cons Comment 02/02/18 06:15 Patient ABO/Rh AB Negative 02/03/18 07:21 Antibody Screen Negative 02/03/18 07:21 Crossmatch See Detail 02/03/18 07:21
[2018-02-06 12:00] VITALS: BP 181/88; PULSE 52; RESP 16; TEMP 37.1; O2SAT 96
--- NOTE | 2018-02-06 14:50 | PT.INTREAT ---
Date of service: 02/06/18 Time of Service: 14:50 PT Notes Inpatient Physical Therapy Treatment Note Date: 02/06/18 PRECAUTIONS: Fall, Contact SUBJECTIVE: Brendan is asking to sit up in the chair and requests assistance with resisted UE ther ex program. OBJECTIVE: PAIN: No c/o pain BED MOBILITY/TRANSFERS Sit-stand: S Stand-sit: S Bed-Chair: SBA GAIT Assistive Device: FWW Weight bearing: Full Assist: SBA Distance: 20' + 10' THEREX: Patient completed a LE strengthening and resisted UE strengthening program, as per flow sheet. Patient was able to tolerate a slight progression in his program. ASSESSMENT: Patient tolerated session well with minimal complaint of UE fatigue with ther ex. Patient was able to tolerate a progression in gait distance and ther ex this afternoon. PLAN: Continue with PT's POC TREATMENT CODE/TIME: 30 minutes; TA/TP
--- NOTE | 2018-02-06 15:01 | PGE_ITS ---
Date of Service Date of service: 02/06/18 Time of Service: 14:49 Assessment and Plan (1) MRSA bacteremia: Current visit: No Status: Resolved With original blood cultures positive for Bacteremia. Repeat blood cultures negative. Continue Vancomycin, currently on day #9 of a 6 week course. TTE showed no evidence of vegetation. KELLEE cancelled due to tenuous respiratory status. He does have a cardiac murmur. Possible endocarditis. Follow up chest x- ray revealed small right pleural effusion. Continue PRN nebulizer treatments, IV steroids. Will need to be slowly tapered down to usual prednisone dose. Repeat labs in the morning. (2) Acute on chronic kidney failure: Current visit: Yes Status: Acute His creatinine increased slightly today. STEVEN-inhibitor discontinued indefinitely due to renal disease. Continue to avoid nephrotoxic drugs and renally dose medications. Continue to monitor renal function. (3) Hypertension: Current visit: No Status: Chronic His blood pressure is elevated. Steven-inhibitor stopped. Start metoprolol and terazosin in place of Coreg. Titrate metoprolol as needed. (4) Diabetes mellitus type 2, controlled: Current visit: No Status: Chronic Blood sugars increasing. He is eating well, his lantus was increased back to his home dose of 30 units daily. Continue scheduled Aspart insulin, 1 unit for every 10 grams of carbohydrates with meals in addition to resistant sliding scale. Continue to monitor blood sugar. (5) Anemia: Current visit: No Status: Chronic Hemoglobin stable. He received 2 units PRBCs on 02/03/18. Continue to follow. (6) Hypomagnesemia: Current visit: Yes Status: Acute Improved with supplementation. Continue to follow. (7) DVT prophylaxis: Current visit: No Status: Acute Subcutaneous heparin. (8) Discharge planning issues: Current visit: Yes Status: Acute He is a FULL code. He is a resident of the [facility]. This case was discussed with Dr. Bravo who is in agreement. Subjective Interval history since last seen: Brendan is a 57 yo with multiple medical problems, resident of the [facility], who is currently being treated for sepsis with MRSA bacteremia and JESUS d/t dehydration. His repeat blood cultures have been negative. His renal function worsened slightly today, his steven inhibitor has been stopped and will not be resumed due to his renal disease. He received 2 units of PRBCs three days ago. He is resting in bed, he awakens easily to verbal stimuli. He denies any difficulty breathing, he denies chest pain/pressure, palpitations. He is eating and drinking, no nausea, vomiting, diarrhea. Exam Narrative Exam Narrative: General: Obese middle-aged male, he is resting in bed with eyes closed, he awakens easily. Neurological: Pupils are equal and round, no focal deficits, answers questions appropriately, moves extremities freely. HEENT: normocephalic, atraumatic, pupils are equal and round, mucous membranes moist, very poor dentition, missing many teeth. Neck: supple, no JVD Cardiovascular: RRR, distant heart sounds, 2/6 murmur noted at LSB. Lungs: Respirations even and unlabored, diminished lung sounds throughout, no rales, rhonchi or wheezing. Gastrointestinal: abdomen soft, nontender, nondistended; cholecystostomy drain in place, draining nonpurulent fluid; Ostomy in place and draining, stoma pink. Extremities: Edema to bilateral lower extremities. RUE edema improving. Pedal pulses palpable bilaterally. Deep purple discoloration to bilateral lower extremities. Skin: excoriations over bilateral lower extremities, healing, he has venous stasis changes to BLEs. Also with sores to bilateral feet/toes. Objective Objective Clinical Data: Abnormal lab results 02/06/18 02/06/18 Range/Units 07:10 07:10 RBC 3.86 L (4.50-6.00) m/cumm Hgb 8.9 L (13.5-17.5) g/dL Hct 28.0 L (40.0-50.0) % MCV 72.5 L (80-95) fL MCH 23.1 L (27.0-33.0) pg MCHC 31.8 L (32.0-36.0) g/dL RDW 20.1 H (11.8-14.1) % Plt Count 441 H (130-400) x1000/uL Absolute Neutrophils 6.74 H (1.2-6.7) k/cumm Absolute Lymphocytes 0.59 L (1.2-3.4) k/cumm Potassium 5.2 H (3.5-5.1) mmol/L Carbon Dioxide 20.7 L (21.0-32.0) mmol/L Anion Gap 12.3 H (3-11) mmol/L BUN 51 H D (7-18) mg/dL Creatinine 2.05 H (0.70-1.30) mg/dL Glucose 315 H (70-100) mg/dL Vital Signs Temperature 37.1 C 02/06/18 12:00 Temperature Source Tympanic 02/06/18 12:00 Pulse 52 L 02/06/18 12:00 Pulse Rhythm Regular 02/05/18 21:02 Pulse 73 01/28/18 18:00 Respiratory Rate 16 02/06/18 12:00 Respiratory Effort Non-Labored 02/05/18 21:02 Respiratory Depth Normal 02/05/18 21:02 Respiratory Pattern Normal 02/05/18 21:02 Blood Pressure 181/88 H 02/06/18 12:00 Blood Pressure Mean 94 01/28/18 17:14 Blood Pressure Position Supine 01/28/18 16:55 Pulse Oximetry 96 02/06/18 12:00 Oxygen Delivery Method Room Air 02/06/18 12:00 Oxygen Flow Rate 0 02/06/18 12:00 Pain Level 0 02/06/18 08:58 Comment 02/04/18 08:10 Intake & Output 02/05/18 02/06/18 02/06/18 23:59 11:59 23:59 Intake Total 1460 / 1460 Output Total 1250 / 2025 1200 / 1475 275 / 1475 Balance -1250 / -1755 260 / -15 -275 / -15 Weight 111.2 kg Intake: IV 20 / 20 Oral 1440 / 1440 Output: Drainage 150 / 225 100 / 175 75 / 175 Right Lateral Abdomen 150 / 225 100 / 175 75 / 175 Urine 600 / 1100 650 / 850 200 / 850 Stool 500 / 700 450 / 450 Other: Urine Color Yellow Yellow Yellow Urine Appearance Clear Clear Clear Urine Odor Normal None Comment Void x1 in the urinal. Voiding Methods Urinal Urinal Urinal Laboratory Results WBC 7.65 k/cumm (4.4-10.8) 02/06/18 07:10 RBC 3.86 m/cumm (4.50-6.00) L 02/06/18 07:10 Hgb 8.9 g/dL (13.5-17.5) L 02/06/18 07:10 Hct 28.0 % (40.0-50.0) L 02/06/18 07:10 MCV 72.5 fL (80-95) L 02/06/18 07:10 MCH 23.1 pg (27.0-33.0) L 02/06/18 07:10 MCHC 31.8 g/dL (32.0-36.0) L 02/06/18 07:10 RDW 20.1 % (11.8-14.1) H 02/06/18 07:10 Plt Count 441 x1000/uL (130-400) H 02/06/18 07:10 MPV 9.6 fL (8.0-11.0) 02/06/18 07:10 Immature Gran % 0.3 02/06/18 07:10 Neutrophils % 88.1 02/06/18 07:10 Lymphocytes % 7.7 02/06/18 07:10 Monocytes % 3.4 02/06/18 07:10 Eosinophils % 0.4 02/06/18 07:10 Basophils % 0.1 02/06/18 07:10 Absolute Neutrophils 6.74 k/cumm (1.2-6.7) H 02/06/18 07:10 Absolute Lymphocytes 0.59 k/cumm (1.2-3.4) L 02/06/18 07:10 Absolute Monocytes 0.26 k/cumm (0.11-0.7) 02/06/18 07:10 Absolute Eosinophils 0.03 k/cumm (0.0-0.7) 02/06/18 07:10 Absolute Basophils 0.01 k/cumm (0.0-0.2) 02/06/18 07:10 Differential Comment Diff reviewed 02/06/18 07:10 RBC Morphology See below 02/06/18 07:10 Polychromasia Present 02/06/18 07:10 Hypochromasia 2+ 02/06/18 07:10 Poikilocytosis 2+ 02/06/18 07:10 Basophilic Stippling Present 02/06/18 07:10 Anisocytosis 3+ 02/06/18 07:10 Microcytosis 2+ 02/06/18 07:10 Tear Drop Cells 2+ 01/29/18 06:45 Ovalocytes 2+ 02/01/18 06:15 Schistocytes 1+ 02/06/18 07:10 ESR 87 MM/HR (1-20) H 02/05/18 07:12 PT 11.5 sec (9.3-10.8) H 01/26/18 17:28 INR 1.2 (1.0-3.5) 01/26/18 17:28 APTT 26.2 sec (21.0-31.4) 01/26/18 17:28 Sodium 137 mmol/L (136-145) 02/06/18 07:10 Potassium 5.2 mmol/L (3.5-5.1) H 02/06/18 07:10 Chloride 104 mmol/L (98-107) 02/06/18 07:10 Carbon Dioxide 20.7 mmol/L (21.0-32.0) L 02/06/18 07:10 Anion Gap 12.3 mmol/L (3-11) H 02/06/18 07:10 BUN 51 mg/dL (7-18) H D 02/06/18 07:10 Creatinine 2.05 mg/dL (0.70-1.30) H 02/06/18 07:10 Estimated GFR/1.73 m2 33.52 (mL/min/1.73m2) 02/06/18 07:10 Glucose 315 mg/dL (70-100) H 02/06/18 07:10 Lactate 0.8 mmol/L (0.6-1.4) 01/27/18 14:35 Calcium 8.8 mg/dL (8.5-10.1) 02/06/18 07:10 Magnesium 1.8 mg/dL (1.8-2.4) 02/06/18 07:10 Iron 17 ug/dL (50-175) L 01/30/18 07:10 TIBC 191 ug/dL (250-450) L 01/30/18 07:10 Transferrin % Sat 9 % (20-55) L 01/30/18 07:10 Ferritin 93 ng/mL (8-388) 01/30/18 07:10 Total Bilirubin 0.3 mg/dL (0.2-1.0) 01/27/18 06:10 AST 10 U/L (15-37) L 01/27/18 06:10 ALT 17 U/L (12-78) 01/27/18 06:10 Alkaline Phosphatase 316 U/L (46-116) H 01/27/18 06:10 Creatine Kinase 17 U/L (39-308) L 01/27/18 06:10 Troponin I 0.02 ng/mL (0.00-0.06) 02/04/18 18:33 C-Reactive Protein 6.94 mg/dL (0.0-0.3) H 02/05/18 07:12 Total Protein 7.4 g/dL (6.4-8.2) 01/27/18 06:10 Albumin 2.1 g/dL (3.4-5.0) L 01/27/18 06:10 TSH 0.46 uIU/mL (0.358-3.74) 02/05/18 07:12 Urine Color Yellow (Yellow) 01/31/18 15:15 Urine Clarity Clear 01/31/18 15:15 Urine pH 5.5 (5-8) 01/31/18 15:15 Ur Specific [place] 1.015 (1.005-1.025) 01/31/18 15:15 Urine Protein Trace mg/dL (Negative) H 01/31/18 15:15 Urine Ketones Negative mg/dL (Negative) 01/31/18 15:15 Urine Blood Small (Negative) H 01/31/18 15:15 Urine Nitrite Negative (Negative) 01/31/18 15:15 Urine Bilirubin Negative (Negative) 01/31/18 15:15 Urine Urobilinogen 0.2 EU/dL (Up TO 0.2) 01/31/18 15:15 Ur Leukocyte Esterase Small (Negative) H 01/31/18 15:15 Urine RBC 0-2 (0-2) 01/31/18 15:15 Urine WBC >50 HPF (0-5) 01/31/18 15:15 Ur Epithelial Cells Rare HPF (Negative) 01/31/18 15:15 Urine Crystals Negative HPF (Negative) 01/31/18 15:15 Urine Bacteria Few HPF (Negative) 01/31/18 15:15 Urine Casts 0-2 coarse granular LPF (Negative) 01/31/18 15:15 Urine Mucus Trace (Negative) 01/31/18 15:15 Urine Other Few transitional (Negative) 01/31/18 15:15 Ur Culture Indicated? Yes 01/31/18 15:15 Urine Glucose Negative mg/dL (Negative) 01/31/18 15:15 Vancomycin Trough 20.8 ug/mL (10.0-20.0) H* 02/02/18 09:20 Random Vancomycin 11.7 ug/mL (5.0-10.0) H* 01/28/18 06:30 Path Cons Comment 02/02/18 06:15 Patient ABO/Rh AB Negative 02/03/18 07:21 Antibody Screen Negative 02/03/18 07:21 Crossmatch See Detail 02/03/18 07:21
--- NOTE | 2018-02-06 15:47 | W.INDIABCONS ---
Date of service: 02/06/18 Time of Service: 15:48 Diabetes Inpatient Consult DESCRIPTION/ASSESSMENT: Follow up chart review that indicates inadequate diabetes management despite increased basal insulin and the addition of mealtime insulin for carbohydrate. He receives 10mg Prednisone and 40mg Methylprednisolone q 8 hours. Blood sugars 218-372 over past 36 hours eating minimally. Clearly the Methylprednisolone is causing hyperglycemia. Given that it is taken q8 hours, blood sugars are likely steadily increased and basal insulin increase may be effective at addressing this hyperglycemia. INTERVENTION: Suggest increase of basal insulin by 20% initially to address hyperglycmeia. THis suggests increase to 36 units of Lantus daily. PLAN: Will follow blood sugars. Time Spent in Nutritional Counseling and Treatment: gilson
[2018-02-06 16:09] LABS: Vancomycin, Trough 23.8 ug/mL (10.0-20.0)
[2018-02-06 16:30] VITALS: BP 192/94; PULSE 63; RESP 24; TEMP 37.2; O2SAT 95
--- NOTE | 2018-02-06 17:01 | PDOC.CMPRO ---
Care Management Progress Note S/O: Brendan remains acute at this time, and continues to be being closely monitored-he was reviewed at interdisciplinary rounds meeting; Pharmacy reports he is due for a Vanco trough at 1300. MD reports improvement in Brendan's presentation with steroid taper. Brendan is now on Q24 IV ABX and could possibly return to the [facility] as soon as Friday, per MD. CM spoke with Isela of [facility] Admission to notify of discharge planning. CM will continue to follow. CM discussed timing of IV ABX as Brendan is currently receiving at 1999, and [facility] can only administer when RN available during daytime hours. A: 57 year old male admitted to [facility] 01/26/18 for Hypotension, Dehydration, JESUS on CKD, UTI P: Brendan will return to the [facility] when ready per MD, he will require once daily fpc IV ABX of which the [facility] is able to manage upon discharge. He will transport via the [facility] W/C van. The facility will manage his further needs.
--- NOTE | 2018-02-06 17:11 | CMPROGNOTE_ITS ---
Care Management Progress Note S/O: Brendan remains acute at this time, and continues to be being closely monitored-he was reviewed at interdisciplinary rounds meeting; Pharmacy reports he is due for a Vanco trough at 1300. MD reports improvement in Brendan's presentation with steroid taper. Brendan is now on Q24 IV ABX and could possibly return to the [facility] as soon as Friday, per MD. CM spoke with Isela of [facility] Admission to notify of discharge planning. CM will continue to follow. CM discussed timing of IV ABX as Brendan is currently receiving at 1999, and [facility] can only administer when RN available during daytime hours. A: 57 year old male admitted to [facility] 01/26/18 for Hypotension, Dehydration, JESUS on CKD, UTI P: Brendan will return to the [facility] when ready per MD, he will require once daily usp IV ABX of which the [facility] is able to manage upon discharge. He will transport via the [facility] W/C van. The facility will manage his further needs.
[2018-02-06] MEDS: Melatonin 3 MG TAB 9 MG PO (20:53)
[2018-02-06] MEDS: risperiDONE 1 MG TAB 3 MG PO (20:53)
[2018-02-06] MEDS: VANCOMYCIN 750 MG in Normal Saline 250 ML 166.667 MG IVPB (21:06)
[2018-02-06 22:20] VITALS: BP 179/88; PULSE 51; RESP 20; TEMP 37.2; O2SAT 97
[2018-02-07] MEDS: methylPREDNISolone SUCC 40 MG VIAL IVP ×3 (01:48→20:42)
[2018-02-07] MEDS: Normal Saline Flush 10 ML SYR IVP ×4 (01:49→20:44)
[2018-02-07] MEDS: hydrOXYzine HCL 25 MG TAB 12.5 MG PO ×2 (04:30→12:22)
[2018-02-07] MEDS: Levothyroxine 50 MCG TAB PO (06:53)
[2018-02-07 07:13] LABS: Anion Gap 10.9 mmol/L (3-11); BUN 51 mg/dL (7-18); CO2 22.1 mmol/L (21.0-32.0); CREATININE 1.99 mg/dL (0.70-1.30); Chloride 104 mmol/L (98-107); Estimated GFR 34.69 (mL/min/1.73m2); Glucose 341 mg/dL (70-100); Magnesium 1.9 mg/dL (1.8-2.4); Potassium 5.1 mmol/L (3.5-5.1); Sodium 137 mmol/L (136-145)
[2018-02-07 07:17] LABS: Abs Immature Grans 0.05 k/cumm (0.0-0.09); Absolute Basophil Count 0.01 k/cumm (0.0-0.2); Absolute Eosinophil Count 0.01 k/cumm (0.0-0.7); Absolute Lymphocyte Count 0.64 k/cumm (1.2-3.4); Absolute Monocyte Count 0.21 k/cumm (0.11-0.7); Absolute Neutrophil Count 6.47 k/cumm (1.2-6.7); Basophils % 0.1; Eosinophils % 0.1; HCT 29.5 % (40.0-50.0); HGB 9.2 g/dL (13.5-17.5); Immature Grans % 0.7; Lymphocytes % 8.7; Mean Corp. HGB Concentration 31.2 g/dL (32.0-36.0); Mean Corpuscular Volume 73.8 fL (80-95); Monocytes % 2.8; Neutrophils % 87.6; Platelet Count 476 x1000/uL (130-400); RBC Distribution Width 20.1 % (11.8-14.1); White Blood Cell Count 7.39 k/cumm (4.4-10.8)
[2018-02-07 07:40] VITALS: BP 198/74; PULSE 63; RESP 18; TEMP 36.7; O2SAT 93
--- NOTE | 2018-02-07 08:38 | PT.INTREAT ---
Date of service: 02/07/18 Time of Service: 08:38 PT Notes 02/07/18 SUBJECTIVE: Brendan stating he is feeling better compared to a few days ago. He continues to feel weak with walking but this is improving. He cannot stand for long periods of time. OBJECTIVE: Supine in bed. Agreeable to PT treatment. TRANSFERS: Supine to sit: I Sit to stand: S Elevated bed Stand to sit: S GAIT: Device: FWW Weight bearing: Full Distance: 10'x2 Assist: SBA Therex: UE/LE strengthening to his tolerance seated at edge of bed. Limited UE ROM through elbows and shoulders. See flow sheet. ASSESSMENT: Progressing well with mobility and strength. He is motivated to get stronger and return to the [facility]. PLAN: Continue current PT's POC. Direct time: 30 minutes TA/MILO Rashid PTA
[2018-02-07] MEDS: Insulin Aspart 300 UNITS/3 ML PEN SC ×6 (09:04→17:19)
[2018-02-07] MEDS: Insulin Glargine 300 UNITS/3 ML PEN 30 UNITS SC (09:05)
[2018-02-07] MEDS: Heparin 5,000 UNITS/ML VIAL 5000 UNITS SC ×2 (09:06→20:49)
[2018-02-07] MEDS: Terazosin 2 MG CAP PO (09:07)
[2018-02-07] MEDS: amLODIPine 5 MG TAB 10 MG PO (09:07)
[2018-02-07] MEDS: Venlafaxine 75 MG TAB 37.5 MG PO ×3 (09:08→20:52)
[2018-02-07] MEDS: Omeprazole 20 MG CAPCR PO (09:08)
[2018-02-07] MEDS: Ferrous Sulfate 325 MG TAB PO ×2 (09:09→20:54)
[2018-02-07] MEDS: Metoprolol 25 MG TAB PO ×2 (09:09→20:55)
[2018-02-07] MEDS: Magnesium Chloride 64 MG TABCR PO ×2 (09:09→20:54)
[2018-02-07] MEDS: cloNIDine 0.1 MG TAB 0.3 MG PO ×3 (09:10→20:53)
[2018-02-07] MEDS: Sertraline 25 MG TAB PO (09:10)
[2018-02-07] MEDS: Cyanocobalamin 500 MCG TAB 1000 MCG PO (09:11)
[2018-02-07] MEDS: Multivitamin w/Minerals TAB 1 TAB PO (09:11)
[2018-02-07] MEDS: Omega-3 Fatty Acids 1000 MG CAP PO (09:11)
[2018-02-07] MEDS: Aspirin E.C. 81 MG TABEC PO ×2 (09:12→20:54)
[2018-02-07] MEDS: predniSONE 10 MG TAB PO (09:12)
[2018-02-07] MEDS: Gabapentin 300 MG CAP PO ×3 (09:12→20:51)
[2018-02-07] MEDS: carBAMazepine 100 MG CHEW PO ×3 (09:12→20:51)
[2018-02-07] MEDS: Folic Acid 1 MG TAB PO (09:13)
[2018-02-07] MEDS: Collagenase 30 GM TUBE TP (09:13)
[2018-02-07 12:05] VITALS: BP 171/79; PULSE 52; RESP 20; TEMP 36.7; O2SAT 93
--- NOTE | 2018-02-07 15:39 | PDOC.CMPRO ---
Care Management Progress Note S/O: Lying in bed with eyes closed A: 57 yo male resident of the [facility], a LTC Facility, admitted for hypotension, dehydration, JESUS on CKD, UTI P: Return to the [facility] Friday and continue his course of once daily IV Antibiotics.
--- NOTE | 2018-02-07 15:42 | CMPROGNOTE_ITS ---
Care Management Progress Note S/O: Lying in bed with eyes closed A: 57 yo male resident of the [facility], a LTC Facility, admitted for hypotension, dehydration, JESUS on CKD, UTI P: Return to the [facility] Friday and continue his course of once daily IV Antibiotics.
--- NOTE | 2018-02-07 15:51 | PGE_ITS ---
Date of Service Date of service: 02/07/18 Time of Service: 15:04 Assessment and Plan (1) MRSA bacteremia: Current visit: No Status: Resolved With original blood cultures positive for MRSA bacteremia. Repeat blood cultures negative and now has PICC line. Continue Vancomycin, currently on day #10 of a 6 week course. TTE showed no evidence of vegetation. KELLEE cancelled due to tenuous respiratory status. He does have a cardiac murmur so with positive blood culture concern for endocarditis. Have a concern for feeding being related to vancomycin, but he does not have diffuse redness and itching may also be related to his venous stasis. Continue to monitor skin exam. Also cut nails as these can be a reservoir for MRSA. (2) Acute on chronic kidney failure: Current visit: Yes Status: Acute His creatinine is stable after STEVEN-inhibitor discontinued indefinitely due to recurrent renal failure and hyperkalemia. Continue to avoid nephrotoxic drugs and renally dose medications. Continue to monitor renal function. (3) Hypertension: Current visit: No Status: Chronic His blood pressure is elevated. Steven-inhibitor stopped. Started metoprolol and terazosin in place of Coreg. Pulse is well beta blocked, so will increase terazosin dose. (4) Diabetes mellitus type 2, controlled: Current visit: No Status: Chronic Blood sugars in the 300s today despite increase in Lantus yesterday. He is on steroids IV. I will again increase his Lantus, to 40 units this time. Continue scheduled Aspart insulin, 1 unit for every 10 grams of carbohydrates with meals in addition to resistant sliding scale. Continue to monitor blood sugar. (5) Anemia: Current visit: No Status: Chronic Hemoglobin stable after he received 2 units PRBCs on 02/03/18. Continue to follow. (6) Hypomagnesemia: Current visit: Yes Status: Acute Improved with supplementation. Continue to follow. (7) DVT prophylaxis: Current visit: No Status: Acute Subcutaneous heparin. (8) Discharge planning issues: Current visit: Yes Status: Acute He is a FULL code. He is a resident of the [facility]. Plan to return when stable on vancomycin dosing. Subjective Patient reports: no new complaints and voiding w/o difficulty; denies diarrhea, nausea, vomiting and fever Interval history since last seen: 24 hr: STEVEN inhibitor stopped due to current renal failure and hyperkalemia. Metoprolol and terazosin started in place of carvedilol and effort to improve blood pressure control. Complains of some itchy skin, scratches and bleeds. On left negro now. Was happening on buttocks but this is better. States cream and atarax 1/2 pill don't really work. He feels okay overall, denies complaints. Denies headache or dizziness Exam Narrative Exam Narrative: General: Sitting up in chair, dabbing shallow wounds on negro that are seeping blood. No acute distress. Appropriately responsive. Neurological: Pupils are equal and round, no focal deficits, answers questions appropriately, moves extremities freely. HEENT: pupils are equal and round, mucous membranes moist, very poor dentition, missing many teeth. Neck: supple Cardiovascular: RRR, distant heart sounds, 2/6 murmur noted at LSB. Lungs: Respirations even and unlabored, diminished lung sounds throughout, no rales, rhonchi or wheezing. Gastrointestinal: abdomen soft, nontender, nondistended; Extremities: 1+ edema to bilateral lower extremities. Pedal pulses palpable bilaterally. Deep purple discoloration to bilateral lower extremities. Skin: excoriations over bilateral lower extremities, some open and some healing, he has venous stasis changes to BLEs. Objective Objective Clinical Data: Abnormal lab results 02/06/18 02/07/18 02/07/18 Range/Units 15:41 06:50 06:50 RBC 4.00 L (4.50-6.00) m/cumm Hgb 9.2 L (13.5-17.5) g/dL Hct 29.5 L (40.0-50.0) % MCV 73.8 L (80-95) fL MCH 23.0 L (27.0-33.0) pg MCHC 31.2 L (32.0-36.0) g/dL RDW 20.1 H (11.8-14.1) % Plt Count 476 H (130-400) x1000/uL Absolute Lymphocytes 0.64 L (1.2-3.4) k/cumm BUN 51 H (7-18) mg/dL Creatinine 1.99 H (0.70-1.30) mg/dL Glucose 341 H (70-100) mg/dL Vancomycin Trough 23.8 H* (10.0-20.0) ug/mL Vital Signs Temperature 36.7 C 02/07/18 12:05 Temperature Source Tympanic 02/07/18 12:05 Pulse 52 L 02/07/18 12:05 Pulse Rhythm Regular 02/07/18 09:00 Pulse 73 01/28/18 18:00 Respiratory Rate 20 02/07/18 12:05 Respiratory Effort Non-Labored 02/07/18 09:00 Respiratory Depth Normal 02/07/18 09:00 Respiratory Pattern Normal 02/07/18 09:00 Blood Pressure 171/79 H 02/07/18 12:05 Blood Pressure Mean 94 01/28/18 17:14 Blood Pressure Position Supine 01/28/18 16:55 Pulse Oximetry 93 L 02/07/18 12:05 Oxygen Delivery Method Room Air 02/07/18 12:05 Oxygen Flow Rate 0 02/07/18 12:05 Pain Level 0 02/07/18 12:05 Comment 02/04/18 08:10 Intake & Output 02/06/18 02/07/18 02/07/18 23:59 11:59 23:59 Intake Total 760 / 1510 290 / 290 Output Total 2175 / 3375 1450 / 2700 1250 / 2700 Balance -1415 / -1865 -1160 / -2410 -1250 / -2410 Weight 109.4 kg Intake: IV 280 / 550 50 / 50 Oral 480 / 960 240 / 240 Output: Drainage 325 / 425 200 / 200 Right Lateral Abdomen 325 / 425 200 / 200 Urine 1000 / 1650 500 / 1200 700 / 1200 Stool 850 / 1300 750 / 1300 550 / 1300 Other: Urine Color Yellow Yellow Yellow Urine Appearance Clear Clear Clear Urine Odor Normal None None Comment Void x1 in the urinal. Voiding Methods Urinal Urinal Urinal Laboratory Results WBC 7.39 k/cumm (4.4-10.8) 02/07/18 06:50 RBC 4.00 m/cumm (4.50-6.00) L 02/07/18 06:50 Hgb 9.2 g/dL (13.5-17.5) L 02/07/18 06:50 Hct 29.5 % (40.0-50.0) L 02/07/18 06:50 MCV 73.8 fL (80-95) L 02/07/18 06:50 MCH 23.0 pg (27.0-33.0) L 02/07/18 06:50 MCHC 31.2 g/dL (32.0-36.0) L 02/07/18 06:50 RDW 20.1 % (11.8-14.1) H 02/07/18 06:50 Plt Count 476 x1000/uL (130-400) H 02/07/18 06:50 MPV 10.0 fL (8.0-11.0) 02/07/18 06:50 Immature Gran % 0.7 02/07/18 06:50 Neutrophils % 87.6 02/07/18 06:50 Lymphocytes % 8.7 02/07/18 06:50 Monocytes % 2.8 02/07/18 06:50 Eosinophils % 0.1 02/07/18 06:50 Basophils % 0.1 02/07/18 06:50 Absolute Neutrophils 6.47 k/cumm (1.2-6.7) 02/07/18 06:50 Absolute Lymphocytes 0.64 k/cumm (1.2-3.4) L 02/07/18 06:50 Absolute Monocytes 0.21 k/cumm (0.11-0.7) 02/07/18 06:50 Absolute Eosinophils 0.01 k/cumm (0.0-0.7) 02/07/18 06:50 Absolute Basophils 0.01 k/cumm (0.0-0.2) 02/07/18 06:50 Differential Comment Diff reviewed 02/06/18 07:10 RBC Morphology See below 02/06/18 07:10 Polychromasia Present 02/06/18 07:10 Hypochromasia 2+ 02/06/18 07:10 Poikilocytosis 2+ 02/06/18 07:10 Basophilic Stippling Present 02/06/18 07:10 Anisocytosis 3+ 02/06/18 07:10 Microcytosis 2+ 02/06/18 07:10 Tear Drop Cells 2+ 01/29/18 06:45 Ovalocytes 2+ 02/01/18 06:15 Schistocytes 1+ 02/06/18 07:10 ESR 87 MM/HR (1-20) H 02/05/18 07:12 PT 11.5 sec (9.3-10.8) H 01/26/18 17:28 INR 1.2 (1.0-3.5) 01/26/18 17:28 APTT 26.2 sec (21.0-31.4) 01/26/18 17:28 Sodium 137 mmol/L (136-145) 02/07/18 06:50 Potassium 5.1 mmol/L (3.5-5.1) 02/07/18 06:50 Chloride 104 mmol/L (98-107) 02/07/18 06:50 Carbon Dioxide 22.1 mmol/L (21.0-32.0) 02/07/18 06:50 Anion Gap 10.9 mmol/L (3-11) 02/07/18 06:50 BUN 51 mg/dL (7-18) H 02/07/18 06:50 Creatinine 1.99 mg/dL (0.70-1.30) H 02/07/18 06:50 Estimated GFR/1.73 m2 34.69 (mL/min/1.73m2) 02/07/18 06:50 Glucose 341 mg/dL (70-100) H 02/07/18 06:50 Lactate 0.8 mmol/L (0.6-1.4) 01/27/18 14:35 Calcium 9.0 mg/dL (8.5-10.1) 02/07/18 06:50 Magnesium 1.9 mg/dL (1.8-2.4) 02/07/18 06:50 Iron 17 ug/dL (50-175) L 01/30/18 07:10 TIBC 191 ug/dL (250-450) L 01/30/18 07:10 Transferrin % Sat 9 % (20-55) L 01/30/18 07:10 Ferritin 93 ng/mL (8-388) 01/30/18 07:10 Total Bilirubin 0.3 mg/dL (0.2-1.0) 01/27/18 06:10 AST 10 U/L (15-37) L 01/27/18 06:10 ALT 17 U/L (12-78) 01/27/18 06:10 Alkaline Phosphatase 316 U/L (46-116) H 01/27/18 06:10 Creatine Kinase 17 U/L (39-308) L 01/27/18 06:10 Troponin I 0.02 ng/mL (0.00-0.06) 02/04/18 18:33 C-Reactive Protein 6.94 mg/dL (0.0-0.3) H 02/05/18 07:12 Total Protein 7.4 g/dL (6.4-8.2) 01/27/18 06:10 Albumin 2.1 g/dL (3.4-5.0) L 01/27/18 06:10 TSH 0.46 uIU/mL (0.358-3.74) 02/05/18 07:12 Urine Color Yellow (Yellow) 01/31/18 15:15 Urine Clarity Clear 01/31/18 15:15 Urine pH 5.5 (5-8) 01/31/18 15:15 Ur Specific [place] 1.015 (1.005-1.025) 01/31/18 15:15 Urine Protein Trace mg/dL (Negative) H 01/31/18 15:15 Urine Ketones Negative mg/dL (Negative) 01/31/18 15:15 Urine Blood Small (Negative) H 01/31/18 15:15 Urine Nitrite Negative (Negative) 01/31/18 15:15 Urine Bilirubin Negative (Negative) 01/31/18 15:15 Urine Urobilinogen 0.2 EU/dL (Up TO 0.2) 01/31/18 15:15 Ur Leukocyte Esterase Small (Negative) H 01/31/18 15:15 Urine RBC 0-2 (0-2) 01/31/18 15:15 Urine WBC >50 HPF (0-5) 01/31/18 15:15 Ur Epithelial Cells Rare HPF (Negative) 01/31/18 15:15 Urine Crystals Negative HPF (Negative) 01/31/18 15:15 Urine Bacteria Few HPF (Negative) 01/31/18 15:15 Urine Casts 0-2 coarse granular LPF (Negative) 01/31/18 15:15 Urine Mucus Trace (Negative) 01/31/18 15:15 Urine Other Few transitional (Negative) 01/31/18 15:15 Ur Culture Indicated? Yes 01/31/18 15:15 Urine Glucose Negative mg/dL (Negative) 01/31/18 15:15 Vancomycin Trough 23.8 ug/mL (10.0-20.0) H* 02/06/18 15:41 Random Vancomycin 11.7 ug/mL (5.0-10.0) H* 01/28/18 06:30 Path Cons Comment 02/02/18 06:15 Patient ABO/Rh AB Negative 02/03/18 07:21 Antibody Screen Negative 02/03/18 07:21 Crossmatch See Detail 02/03/18 07:21
[2018-02-07 17:13] VITALS: BP 197/101; PULSE 76; RESP 22; TEMP 37; O2SAT 96
[2018-02-07] MEDS: VANCOMYCIN 750 MG in Normal Saline 250 ML 166.667 MG IVPB (18:50)
[2018-02-07] MEDS: risperiDONE 1 MG TAB 3 MG PO (20:50)
[2018-02-07] MEDS: Terazosin 2 MG CAP 4 MG PO (20:52)
[2018-02-07] MEDS: Melatonin 3 MG TAB 9 MG PO (20:53)
[2018-02-07 21:28] VITALS: BP 189/92; PULSE 60; RESP 20; TEMP 36.3; O2SAT 96
[2018-02-08 00:04] VITALS: BP 160/83; PULSE 50; RESP 18; TEMP 36.6; O2SAT 93
[2018-02-08] MEDS: Levothyroxine 50 MCG TAB PO (06:32)
[2018-02-08 07:40] VITALS: BP 199/83; PULSE 56; RESP 17; TEMP 36.8; O2SAT 93
[2018-02-08] MEDS: Magnesium Chloride 64 MG TABCR PO ×2 (08:40→20:23)
[2018-02-08] MEDS: Omeprazole 20 MG CAPCR PO (08:41)
[2018-02-08] MEDS: predniSONE 20 MG TAB 60 MG PO (08:41)
[2018-02-08] MEDS: Metoprolol 25 MG TAB PO ×2 (08:42→20:22)
[2018-02-08] MEDS: Gabapentin 300 MG CAP PO ×3 (08:42→20:22)
[2018-02-08] MEDS: Multivitamin w/Minerals TAB 1 TAB PO (08:42)
[2018-02-08] MEDS: Omega-3 Fatty Acids 1000 MG CAP PO (08:42)
[2018-02-08] MEDS: cloNIDine 0.1 MG TAB 0.3 MG PO ×3 (08:43→20:23)
[2018-02-08] MEDS: Cyanocobalamin 500 MCG TAB 1000 MCG PO (08:43)
[2018-02-08] MEDS: Terazosin 2 MG CAP 4 MG PO ×2 (08:43→20:23)
[2018-02-08] MEDS: carBAMazepine 100 MG CHEW PO ×3 (08:44→20:20)
[2018-02-08] MEDS: Venlafaxine 75 MG TAB 37.5 MG PO ×3 (08:44→20:21)
[2018-02-08] MEDS: Ferrous Sulfate 325 MG TAB PO ×2 (08:45→20:22)
[2018-02-08] MEDS: amLODIPine 5 MG TAB 10 MG PO (08:45)
[2018-02-08] MEDS: Aspirin E.C. 81 MG TABEC PO ×2 (08:45→20:21)
[2018-02-08] MEDS: Heparin 5,000 UNITS/ML VIAL 5000 UNITS SC ×2 (08:46→20:17)
[2018-02-08] MEDS: Sertraline 25 MG TAB PO (08:46)
[2018-02-08] MEDS: Folic Acid 1 MG TAB PO (08:46)
[2018-02-08] MEDS: Collagenase 30 GM TUBE TP (08:46)
[2018-02-08] MEDS: Insulin Glargine 300 UNITS/3 ML PEN 40 UNITS SC (08:47)
[2018-02-08] MEDS: Insulin Aspart 300 UNITS/3 ML PEN SC ×6 (09:01→17:31)
--- NOTE | 2018-02-08 10:10 | PT.INTREAT ---
Date of service: 02/08/18 Time of Service: 10:10 PT Notes 02/08/18 SUBJECTIVE: Own stating he is doing okay today. He feels like his legs are weak and sore. He is unsure if he will be able to walk safely today. OBJECTIVE: Seated EOB finishing his breakfast. Agreeable to PT treatment. TRANSFERS: Sit to stand: S Stand to sit: S GAIT: Unable to due feeling weak. Pt stood at EOB with FWW, SBA x 2 minutes with complaints of weakness, fatigue and LE pain. Defer ambulation at this time. Therex: Pt performs seated UE/LE strengthening to his tolerance. See flow sheet. ASSESSEMENT: Defer ambulation today as pt did not feel like his legs were going to hold him in standing position. Pt will benefit from continued strengthening for safety with mobility. PLAN: Continue current POC. Direct time: 15 minutes MILO Rashid PTA
[2018-02-08 12:13] VITALS: BP 139/86; PULSE 58; RESP 28; TEMP 36.9; O2SAT 95
--- NOTE | 2018-02-08 14:44 | W.PM.PROGNOT ---
Date of Service Date of service: 02/08/18 Time of Service: 14:44 Assessment and Plan (1) MRSA bacteremia: Current visit: No Status: Resolved MRSA bacteremia. Repeat blood cultures negative and now has PICC line. Continue Vancomycin, currently on day #11 of a 6 week course. TTE showed no evidence of vegetation. KELLEE cancelled due to tenuous respiratory status. He does have a cardiac murmur so with positive blood culture concern for endocarditis. I am less concerned that itching is related to vancomycin, no rash notable. Continue to monitor skin exam. still needs to cut nails as these can be a reservoir for MRSA. (2) Acute on chronic kidney failure: Current visit: Yes Status: Acute His creatinine is stable after STEVEN-inhibitor discontinued indefinitely due to recurrent renal failure and hyperkalemia. Continue to avoid nephrotoxic drugs and renally dose medications. Continue to monitor renal function. (3) Hypertension: Current visit: No Status: Chronic His blood pressure is elevated. Steven-inhibitor stopped. Started metoprolol and terazosin in place of Coreg. Pulse is well beta blocked, so increased terazosin dose of blood pressure still quite high. Try adding hydralazine. (4) Diabetes mellitus type 2, controlled: Current visit: No Status: Chronic Blood sugars still high but improved today despite increase in Lantus yesterday. He is on steroids higher dose than his baseline and will need a long taper. I will continue his Lantus at 40 units this time as we have jumped up quite a lot in the last 2 days. Continue scheduled Aspart insulin, 1 unit for every 10 grams of carbohydrates with meals in addition to resistant sliding scale. Continue to monitor blood sugar. (5) Anemia: Current visit: No Status: Chronic Hemoglobin stable after he received 2 units PRBCs on 02/03/18. Continue to follow. (6) Hypomagnesemia: Current visit: Yes Status: Acute Improved with supplementation. Continue to follow. (7) Hypothyroidism: Current visit: No Status: Chronic TSH below 1 during this admission. While technically normal, this level does increase risk of cardiac disease including specifically atrial fibrillation. We will decrease his naproxen slightly. (8) Back pain: Current visit: No Status: Chronic Patient is on both nortriptyline during the day and gabapentin. He denies current body pain and was not sure why he takes this. Given concerns of polypharmacy, will try him off the tricyclic. (9) DVT prophylaxis: Current visit: No Status: Acute Subcutaneous heparin. (10) Discharge planning issues: Current visit: Yes Status: Acute He is a FULL code. He is a resident of the [facility]. Plan to return when stable on vancomycin dosing. Subjective Patient reports: no new complaints, tolerating a regular diet, voiding w/o difficulty and shortness of breath; denies diarrhea, nausea, vomiting and fever Interval history since last seen: States he feels a little better today. Still itchy, but no longer bleeding, nurse dressed his wound. He has not tried a higher dose of Atarax. He has not noted any rashes or reddening of skin. He denies joint or other pain. He was not sure why he was on the nortriptyline and gabapentin. Exam Narrative Exam Narrative: General: Sitting up in chair. No acute distress. Appropriately responsive. HEENT: mucous membranes moist, very poor dentition, missing many teeth. Neck: supple Cardiovascular: RRR, distant heart sounds, 2/6 murmur noted at LSB. Lungs: Respirations even and unlabored, diminished lung sounds throughout, no rales, rhonchi or wheezing. Gastrointestinal: abdomen soft, nontender, nondistended; skin: No redness or new rashes. Left negro is dressed, no bleeding. Extremities: trace edema to bilateral lower extremities. Deep purple discoloration to bilateral lower extremities. Skin: excoriations over bilateral lower extremities, some open and some healing, he has venous stasis changes to BLEs. Objective Objective Clinical Data: Vital Signs Temperature 36.9 C 02/08/18 12:13 Temperature Source Tympanic 02/08/18 12:13 Pulse 58 L 02/08/18 12:13 Pulse Rhythm Regular 02/08/18 03:33 Pulse 73 01/28/18 18:00 Respiratory Rate 28 H 02/08/18 12:13 Respiratory Effort Non-Labored 02/08/18 03:33 Respiratory Depth Normal 02/08/18 03:33 Respiratory Pattern Normal 02/08/18 03:33 Blood Pressure 139/86 02/08/18 12:13 Blood Pressure Mean 94 01/28/18 17:14 Blood Pressure Position Supine 01/28/18 16:55 Pulse Oximetry 95 02/08/18 12:13 Oxygen Delivery Method Room Air 02/08/18 12:13 Oxygen Flow Rate 0 02/08/18 12:13 Pain Level 0 02/07/18 17:13 Comment 02/04/18 08:10 Intake & Output 02/07/18 02/08/18 02/08/18 23:59 11:59 23:59 Intake Total 270 / 560 Output Total 2650 / 4100 500 / 500 Balance -2380 / -3540 -500 / -500 Weight 109.8 kg Intake: IV 270 / 320 Output: Drainage 150 / 350 Right Lateral Abdomen 150 / 350 Urine 1375 / 1875 200 / 200 Stool 1125 / 1875 300 / 300 Other: Urine Color Yellow Yellow Straw Urine Appearance Clear Clear Urine Odor None None Voiding Methods Urinal Urinal Laboratory Results WBC 7.39 k/cumm (4.4-10.8) 02/07/18 06:50 RBC 4.00 m/cumm (4.50-6.00) L 02/07/18 06:50 Hgb 9.2 g/dL (13.5-17.5) L 02/07/18 06:50 Hct 29.5 % (40.0-50.0) L 02/07/18 06:50 MCV 73.8 fL (80-95) L 02/07/18 06:50 MCH 23.0 pg (27.0-33.0) L 02/07/18 06:50 MCHC 31.2 g/dL (32.0-36.0) L 02/07/18 06:50 RDW 20.1 % (11.8-14.1) H 02/07/18 06:50 Plt Count 476 x1000/uL (130-400) H 02/07/18 06:50 MPV 10.0 fL (8.0-11.0) 02/07/18 06:50 Immature Gran % 0.7 02/07/18 06:50 Neutrophils % 87.6 02/07/18 06:50 Lymphocytes % 8.7 02/07/18 06:50 Monocytes % 2.8 02/07/18 06:50 Eosinophils % 0.1 02/07/18 06:50 Basophils % 0.1 02/07/18 06:50 Absolute Neutrophils 6.47 k/cumm (1.2-6.7) 02/07/18 06:50 Absolute Lymphocytes 0.64 k/cumm (1.2-3.4) L 02/07/18 06:50 Absolute Monocytes 0.21 k/cumm (0.11-0.7) 02/07/18 06:50 Absolute Eosinophils 0.01 k/cumm (0.0-0.7) 02/07/18 06:50 Absolute Basophils 0.01 k/cumm (0.0-0.2) 02/07/18 06:50 Differential Comment Diff reviewed 02/06/18 07:10 RBC Morphology See below 02/06/18 07:10 Polychromasia Present 02/06/18 07:10 Hypochromasia 2+ 02/06/18 07:10 Poikilocytosis 2+ 02/06/18 07:10 Basophilic Stippling Present 02/06/18 07:10 Anisocytosis 3+ 02/06/18 07:10 Microcytosis 2+ 02/06/18 07:10 Tear Drop Cells 2+ 01/29/18 06:45 Ovalocytes 2+ 02/01/18 06:15 Schistocytes 1+ 02/06/18 07:10 ESR 87 MM/HR (1-20) H 02/05/18 07:12 PT 11.5 sec (9.3-10.8) H 01/26/18 17:28 INR 1.2 (1.0-3.5) 01/26/18 17:28 APTT 26.2 sec (21.0-31.4) 01/26/18 17:28 Sodium 137 mmol/L (136-145) 02/07/18 06:50 Potassium 5.1 mmol/L (3.5-5.1) 02/07/18 06:50 Chloride 104 mmol/L (98-107) 02/07/18 06:50 Carbon Dioxide 22.1 mmol/L (21.0-32.0) 02/07/18 06:50 Anion Gap 10.9 mmol/L (3-11) 02/07/18 06:50 BUN 51 mg/dL (7-18) H 02/07/18 06:50 Creatinine 1.99 mg/dL (0.70-1.30) H 02/07/18 06:50 Estimated GFR/1.73 m2 34.69 (mL/min/1.73m2) 02/07/18 06:50 Glucose 341 mg/dL (70-100) H 02/07/18 06:50 Lactate 0.8 mmol/L (0.6-1.4) 01/27/18 14:35 Calcium 9.0 mg/dL (8.5-10.1) 02/07/18 06:50 Magnesium 1.9 mg/dL (1.8-2.4) 02/07/18 06:50 Iron 17 ug/dL (50-175) L 01/30/18 07:10 TIBC 191 ug/dL (250-450) L 01/30/18 07:10 Transferrin % Sat 9 % (20-55) L 01/30/18 07:10 Ferritin 93 ng/mL (8-388) 01/30/18 07:10 Total Bilirubin 0.3 mg/dL (0.2-1.0) 01/27/18 06:10 AST 10 U/L (15-37) L 01/27/18 06:10 ALT 17 U/L (12-78) 01/27/18 06:10 Alkaline Phosphatase 316 U/L (46-116) H 01/27/18 06:10 Creatine Kinase 17 U/L (39-308) L 01/27/18 06:10 Troponin I 0.02 ng/mL (0.00-0.06) 02/04/18 18:33 C-Reactive Protein 6.94 mg/dL (0.0-0.3) H 02/05/18 07:12 Total Protein 7.4 g/dL (6.4-8.2) 01/27/18 06:10 Albumin 2.1 g/dL (3.4-5.0) L 01/27/18 06:10 TSH 0.46 uIU/mL (0.358-3.74) 02/05/18 07:12 Urine Color Yellow (Yellow) 01/31/18 15:15 Urine Clarity Clear 01/31/18 15:15 Urine pH 5.5 (5-8) 01/31/18 15:15 Ur Specific Magdalena 1.015 (1.005-1.025) 01/31/18 15:15 Urine Protein Trace mg/dL (Negative) H 01/31/18 15:15 Urine Ketones Negative mg/dL (Negative) 01/31/18 15:15 Urine Blood Small (Negative) H 01/31/18 15:15 Urine Nitrite Negative (Negative) 01/31/18 15:15 Urine Bilirubin Negative (Negative) 01/31/18 15:15 Urine Urobilinogen 0.2 EU/dL (Up TO 0.2) 01/31/18 15:15 Ur Leukocyte Esterase Small (Negative) H 01/31/18 15:15 Urine RBC 0-2 (0-2) 01/31/18 15:15 Urine WBC >50 HPF (0-5) 01/31/18 15:15 Ur Epithelial Cells Rare HPF (Negative) 01/31/18 15:15 Urine Crystals Negative HPF (Negative) 01/31/18 15:15 Urine Bacteria Few HPF (Negative) 01/31/18 15:15 Urine Casts 0-2 coarse granular LPF (Negative) 01/31/18 15:15 Urine Mucus Trace (Negative) 01/31/18 15:15 Urine Other Few transitional (Negative) 01/31/18 15:15 Ur Culture Indicated? Yes 01/31/18 15:15 Urine Glucose Negative mg/dL (Negative) 01/31/18 15:15 Vancomycin Trough 23.8 ug/mL (10.0-20.0) H* 02/06/18 15:41 Random Vancomycin 11.7 ug/mL (5.0-10.0) H* 01/28/18 06:30 Path Cons Comment 02/02/18 06:15 Patient ABO/Rh AB Negative 02/03/18 07:21 Antibody Screen Negative 02/03/18 07:21 Crossmatch See Detail 02/03/18 07:21
--- NOTE | 2018-02-08 15:07 | PDOC.CMPRO ---
Care Management Progress Note S/O: Resting in bed with eyes closed. Did not engage in discussion at this time. According to nursing he has been alert and is able to participate in ADL activity. His fingernails need to be trimmed but that was not addressed today. A: 57 yo admitted forhypotension,dehydration, JESUS on CKD, UTI P: Return to the [facility] when medically cleared for discharge.
[2018-02-08] MEDS: VANCOMYCIN 750 MG in Normal Saline 250 ML 166.67 MG IVPB (15:40)
[2018-02-08] MEDS: Normal Saline Flush 10 ML SYR IVP (15:40)
[2018-02-08 16:11] VITALS: BP 180/89; PULSE 66; RESP 20; TEMP 37.3; O2SAT 93
--- NOTE | 2018-02-08 16:56 | CMPROGNOTE_ITS ---
Care Management Progress Note S/O: Resting in bed with eyes closed. Did not engage in discussion at this time. According to nursing he has been alert and is able to participate in ADL activity. His fingernails need to be trimmed but that was not addressed today. A: 57 yo admitted forhypotension,dehydration, JESUS on CKD, UTI P: Return to the [facility] when medically cleared for discharge.
[2018-02-08 20:06] VITALS: BP 166/80; PULSE 64; RESP 20; TEMP 37.1; O2SAT 94
[2018-02-08] MEDS: risperiDONE 1 MG TAB 3 MG PO (21:24)
[2018-02-08] MEDS: hydrALAZINE 10 MG TAB PO (21:24)
[2018-02-08] MEDS: Melatonin 3 MG TAB 9 MG PO (21:24)
[2018-02-09] VITALS: BP 182/85; PULSE 52; RESP 19; TEMP 37.1; O2SAT 97
--- NOTE | 2018-02-09 01:23 | NUR.NOTE ---
Nursing Note: 7P to 7 A Shift: Pt received fully awake on bed, colostomy and T-tube drain emptied beginning of the shift. Pt is grumpy at times but resolved after HS care. Fingernails was cleaned by HIGH SCHOOL COMPUTER SCIENCE TEACHER without difficulty. Melatonin and respiridal scheduled at 2200 hrs taken at Midnight as per request. Voiding promptly on urinal. Continue to attend needs. Call lights at reachy.
[2018-02-09 03:51] VITALS: BP 183/93; PULSE 56; RESP 18; TEMP 36; O2SAT 97
[2018-02-09] MEDS: Levothyroxine 25 MCG TAB 37.5 MCG PO (05:44)
[2018-02-09 07:10] VITALS: O2SAT 94
[2018-02-09 07:35] VITALS: BP 185/92; PULSE 56; RESP 19; TEMP 36.6; O2SAT 94
[2018-02-09] MEDS: Insulin Aspart 300 UNITS/3 ML PEN SC ×6 (08:13→17:01)
[2018-02-09] MEDS: Heparin 5,000 UNITS/ML VIAL 5000 UNITS SC ×2 (08:14→20:48)
[2018-02-09] MEDS: Multivitamin w/Minerals TAB 1 TAB PO (08:15)
[2018-02-09] MEDS: Gabapentin 300 MG CAP PO ×3 (08:15→20:48)
[2018-02-09] MEDS: Magnesium Chloride 64 MG TABCR PO ×2 (08:15→20:46)
[2018-02-09] MEDS: Venlafaxine 75 MG TAB 37.5 MG PO ×3 (08:15→20:46)
[2018-02-09] MEDS: Terazosin 2 MG CAP 4 MG PO ×2 (08:16→20:47)
[2018-02-09] MEDS: Aspirin E.C. 81 MG TABEC PO ×2 (08:16→20:47)
[2018-02-09] MEDS: Folic Acid 1 MG TAB PO (08:16)
[2018-02-09] MEDS: hydrALAZINE 10 MG TAB PO ×3 (08:16→20:47)
[2018-02-09] MEDS: predniSONE 20 MG TAB 60 MG PO (08:16)
[2018-02-09] MEDS: amLODIPine 5 MG TAB 10 MG PO (08:16)
[2018-02-09] MEDS: Omega-3 Fatty Acids 1000 MG CAP PO (08:16)
[2018-02-09] MEDS: Ferrous Sulfate 325 MG TAB PO ×2 (08:17→20:48)
[2018-02-09] MEDS: Omeprazole 20 MG CAPCR PO (08:17)
[2018-02-09] MEDS: Metoprolol 25 MG TAB PO ×2 (08:17→20:46)
[2018-02-09] MEDS: Sertraline 25 MG TAB PO (08:17)
[2018-02-09] MEDS: carBAMazepine 100 MG CHEW PO ×3 (08:17→20:48)
[2018-02-09] MEDS: cloNIDine 0.1 MG TAB 0.3 MG PO ×3 (08:17→20:47)
[2018-02-09] MEDS: Cyanocobalamin 500 MCG TAB 1000 MCG PO (08:17)
[2018-02-09] MEDS: Insulin Glargine 300 UNITS/3 ML PEN 40 UNITS SC (08:19)
--- NOTE | 2018-02-09 09:03 | OT.INTREAT ---
Date of service: 02/09/18 Time of Service: 08:40 Occupational Therapy Notes Occupational Therapy Inpatient Treatment Note Date: 02/09/18 PRECAUTIONS: Contact Precautions SUBJECTIVE: Pt was sitting on side of bed when OT arrived. Pt was agreeable to OT session. OBJECTIVE: PAIN:no c/o pain THEREX: Pt performed the following strengthening and functional dynamic activities during OT session today with good technique and minimal vc: Shoulder flexion (B) 2 sets of 15 Shoulder abduction (B) 2 sets of 15 Blue foam cube squeezes 25x each hand Bicep curls with red thera band 1 set of 10 (B) Functional shoulder abduction with elbow flexion and external rotation 15x Functional elbow extension with forward bend reaching towards socks to increase (I) in LE dressing 10x each side Rows with red thera band (B) 10x each ASSESSMENT: Pt demonstrated decreased vc for UE strengthening and functional ROM of (B) UE. He was able to perform exercises with increased (I) and reps. Pt would benefit from continued skilled OT intervention for (B) UE strengthening to increase pts (I) in ADLs/ IADLs. Pt was able to reach towards socks increasing (I) in pulling up socks (I) and reach towards his face increasing (I) with washing face, eating routine, brushing hair. OT recommends that pt return to [facility] when medically cleared per MD. PLAN: Per POC. OT recommends that pt return to [facility] when medically cleared per MD. TREATMENT CODES/TIME: 20 minutes, TPx1 Suzanne Javier OTR/L
--- NOTE | 2018-02-09 09:47 | PDOC.CMPRO ---
Care Management Progress Note S/O: Brendan will likely discharge back to the [facility] tomorrow. He will have a Vanco trough today, and his IV Med timing continues to be adjusted to allow for daytime administration at the [facility]. CM called [facility] and coordinated W/C Van for 1130 tomorrow as Isela of the [facility] reported no W/C Van availability. KATELYN requested Suyapa; RNCC connect with Meg of the [facility] as she was requesting 0900 dosing order for Vanco. Brendan was sitting up on the side of his bed, he reported being in agreement with discharge planning and verbalized he is looking forward to returning home. A: 57 year old male admitted to [facility] 01/26/18 for Hypotension, Dehydration, JESUS on CKD, UTI P: Brendan will return to the [facility] when ready per MD, he will require once daily long-term IV ABX of which the [facility] is able to manage upon discharge. He will transport via the [facility] W/C van. The facility will manage his further needs.
--- NOTE | 2018-02-09 09:51 | CMPROGNOTE_ITS ---
Care Management Progress Note S/O: Brendan will likely discharge back to the [facility] tomorrow. He will have a Vanco trough today, and his IV Med timing continues to be adjusted to allow for daytime administration at the [facility]. CM called [facility] and coordinated W/C Van for 1130 tomorrow as Isela of the [facility] reported no W/C Van availability. KATELYN requested Suyapa; RNCC connect with Meg of the [facility] as she was requesting 0900 dosing order for Vanco. Brendan was sitting up on the side of his bed, he reported being in agreement with discharge planning and verbalized he is looking forward to returning home. A: 57 year old male admitted to [facility] 01/26/18 for Hypotension, Dehydration, JESUS on CKD, UTI P: Brendan will return to the [facility] when ready per MD, he will require once daily longterm IV ABX of which the [facility] is able to manage upon discharge. He will transport via the [facility] W/C van. The facility will manage his further needs.
[2018-02-09] MEDS: Collagenase 30 GM TUBE TP (12:00)
[2018-02-09] MEDS: Normal Saline Flush 10 ML SYR IVP ×2 (13:37→17:00)
[2018-02-09 14:13] LABS: Vancomycin, Trough 20.3 ug/mL (10.0-20.0)
[2018-02-09 14:14] LABS: CREATININE 2.28 mg/dL (0.70-1.30); Estimated GFR 29.65 (mL/min/1.73m2)
--- NOTE | 2018-02-09 15:14 | PT.INTREAT ---
Date of service: 02/09/18 Time of Service: 15:14 PT Notes Inpatient Physical Therapy Treatment Note Date: 02/09/18 PRECAUTIONS: Fall, Contact SUBJECTIVE: Brendan states that he is feeling pretty good today and is agreeable to PT. OBJECTIVE: PAIN: No c/o pain BED MOBILITY/TRANSFERS Supine-sit: I Sit-stand: S Stand-sit: S Bed-Chair: SBA GAIT Assistive Device: FWW Weight bearing: WBAT Assist: SBA Distance: 30' THEREX: Patient completed a LE strengthening program in a seated position, as per flow sheet. He was able to tolerate a slight progression in his program today, modifications made to reps are noted on flow sheet. ASSESSMENT: Patient tolerated session well without complaint. He was able to tolerate a progression in gait distance with FWW support and SBA, as well as a progression in ther ex. Patient would benefit from continued gait and transfer training for improved mobility. PLAN: Continue with PT's POC TREATMENT CODE/TIME: 30 minutes; TA/TP
[2018-02-09 15:57] VITALS: BP 161/73; PULSE 66; RESP 18; TEMP 37.2; O2SAT 94
[2018-02-09] MEDS: VANCOMYCIN 750 MG in Normal Saline 250 ML 250 MG IVPB (17:01)
--- NOTE | 2018-02-09 21:16 | W.PM.PROGNOT ---
Date of Service Date of service: 02/09/18 Time of Service: 15:48 Assessment and Plan (1) MRSA bacteremia: (2) Acute on chronic kidney failure: (3) Hypertension: (4) Diabetes mellitus type 2, controlled: (5) Anemia: (6) Hypothyroidism: (7) Back pain: (8) Adrenal insufficiency: (9) DVT prophylaxis: (10) Discharge planning issues:
[2018-02-09 23:30] VITALS: BP 182/88; PULSE 60; RESP 24; TEMP 37.1; O2SAT 92
[2018-02-09] MEDS: Melatonin 3 MG TAB 9 MG PO (23:33)
[2018-02-09] MEDS: risperiDONE 1 MG TAB 3 MG PO (23:33)
[2018-02-10] MEDS: Levothyroxine 25 MCG TAB 37.5 MCG PO (06:22)
[2018-02-10 07:00] LABS: HCT 30.7 % (40.0-50.0); HGB 9.4 g/dL (13.5-17.5); Mean Corp. HGB Concentration 30.6 g/dL (32.0-36.0); Mean Corpuscular Hemoglobin 22.9 pg (27.0-33.0); Mean Corpuscular Volume 74.7 fL (80-95); Mean Platelet Volume 9.9 fL (8.0-11.0); Platelet Count 443 x1000/uL (130-400); RBC 4.11 m/cumm (4.50-6.00); RBC Distribution Width 20.5 % (11.8-14.1); White Blood Cell Count 10.82 k/cumm (4.4-10.8)
[2018-02-10 07:45] VITALS: BP 152/68; PULSE 61; RESP 17; TEMP 36.6; O2SAT 95
--- NOTE | 2018-02-10 08:26 | PT.INDS ---
Date of service: 02/10/18 Time of Service: 08:26 PT Notes Date: 02/10/18 Dates of Service: 01/28/18-02/09/18 PRECAUTIONS: Fall precautions, Contact precautions SUBJECTIVE: NT OBJECTIVE 01/28/18-02/09/18 Bed Mobility/Transfers: Supine-sit: independent Sit-supine: SBA Sit-stand: Supervision with FWW Stand-sit: Supervision with FWW Bed-chair: SBA with FWW Gait: SBA with FWW 20ft-30ft Balance: Static Sitting: normal Dynamic Sitting: normal Static Standing: fair Dynamic Standing: fair Assessment: Pt is a 57yr old male admitted with hypotension, dehydrations, sepsis, acute kidney injury, urinary tract infections, hypokalemia, right lateral foot ulcer and right great toe ulcer in setting of Bipolar Disorder, chronic back pain, lower extremity edema, obesity, diabetes mellitus, diabetic neuropathy, diabetic foot ulcers, rheumatoid arthritis, osteoarthritis bilateral knees, sacral decubitus ulcer, chronic renal insufficiency, coronary artery disease. Pt has made some progress with therapy intervention, is independent with bed mobility, SBA with standing transfers and performs limited gait 20-30ft with FWW SBA. Pt returning to the [facility] today, recommend continued therapy. Goals: Goals X1 week 1. Supine-Sit independent 2. Sit-Supine independent 3. Sit-Stand supervision with FWW 4. Stand-Sit supervision 5. Bed-Chair supervision with FWW 6. Chair-Bed supervision with FWW 7. Gait SBA with FWW 65ftx2 Pt met goals # 1, 2, 3, 4 DISCHARGE RECOMMENDATIONS: Return to the [facility] Yolanda Chang PT
[2018-02-10] MEDS: Insulin Glargine 300 UNITS/3 ML PEN 45 UNITS SC (08:29)
--- NOTE | 2018-02-10 08:29 | INDS_ITS ---
Date of service: 02/10/18 Time of Service: 08:26 PT Notes Date: 02/10/18 Dates of Service: 01/28/18-02/09/18 PRECAUTIONS: Fall precautions, Contact precautions SUBJECTIVE: NT OBJECTIVE 01/28/18-02/09/18 Bed Mobility/Transfers: Supine-sit: independent Sit-supine: SBA Sit-stand: Supervision with FWW Stand-sit: Supervision with FWW Bed-chair: SBA with FWW Gait: SBA with FWW 20ft-30ft Balance: Static Sitting: normal Dynamic Sitting: normal Static Standing: fair Dynamic Standing: fair Assessment: Pt is a 57yr old male admitted with hypotension, dehydrations, sepsis, acute kidney injury, urinary tract infections, hypokalemia, right la teral foot ulcer and right great toe ulcer in setting of Bipolar Disorder, chronic back pain, lower extremity edema, obesity, diabetes mellitus, diabetic neuropathy, diabetic foot ulcers, rheumatoid arthritis, osteoarthritis bilateral knees, sacral decubitus ulcer, chronic renal insufficiency, coronary artery disease. Pt has made some progress with therapy intervention, is independent with bed m obility, SBA with standing transfers and performs limited gait 20-30ft with FWW SBA. Pt returning to the [facility] today, recommend continued therapy. Goals: Goals X1 week 1. Supine-Sit independent 2. Sit-Supine independent 3. Sit-Stand supervision with FWW 4. Stand-Sit supervision 5. Bed-Chair supervision with FWW 6. Chair-Bed supervision with FWW 7. Gait SBA with FWW 65ftx2 Pt met goals # 1, 2, 3, 4 DISCHARGE RECOMMENDATIONS: Return to the [facility] Yolanda Chang PT
[2018-02-10] MEDS: Cyanocobalamin 500 MCG TAB 1000 MCG PO (08:32)
[2018-02-10] MEDS: Omega-3 Fatty Acids 1000 MG CAP PO (08:33)
[2018-02-10] MEDS: predniSONE 20 MG TAB 50 MG PO (08:33)
[2018-02-10] MEDS: Multivitamin w/Minerals TAB 1 TAB PO (08:33)
[2018-02-10] MEDS: Folic Acid 1 MG TAB PO (08:33)
[2018-02-10] MEDS: hydrALAZINE 10 MG TAB PO (08:33)
[2018-02-10] MEDS: Gabapentin 300 MG CAP PO (08:33)
[2018-02-10] MEDS: Omeprazole 20 MG CAPCR PO (08:34)
[2018-02-10] MEDS: Terazosin 2 MG CAP 4 MG PO (08:34)
[2018-02-10] MEDS: Ferrous Sulfate 325 MG TAB PO (08:34)
[2018-02-10] MEDS: Magnesium Chloride 64 MG TABCR PO (08:34)
[2018-02-10] MEDS: cloNIDine 0.1 MG TAB 0.3 MG PO (08:34)
[2018-02-10] MEDS: amLODIPine 5 MG TAB 10 MG PO (08:35)
[2018-02-10] MEDS: Sertraline 25 MG TAB PO (08:35)
[2018-02-10] MEDS: carBAMazepine 100 MG CHEW PO (08:35)
[2018-02-10] MEDS: Venlafaxine 75 MG TAB 37.5 MG PO (08:35)
[2018-02-10] MEDS: Heparin 5,000 UNITS/ML VIAL 5000 UNITS SC (08:35)
[2018-02-10] MEDS: Metoprolol 25 MG TAB PO (08:35)
[2018-02-10] MEDS: Aspirin E.C. 81 MG TABEC PO (08:35)
--- NOTE | 2018-02-10 08:35 | OTDS_ITS ---
Date of service: 02/10/18 Time of Service: 08:34 Occupational Therapy Notes Occupational Therapy Inpatient Discharge Summary Date: 02/10/18 Dates of Service: 01/28/18-02/10/18 PRECAUTIONS: Contact Precautions SUBJECTIVE: NT OBJECTIVE: Dates of Service: 01/28/18-02/10/18 FUNCTIONAL MOBILITY/ADLS: BATHING Upper Body: Min (A) (B) UE, (I) forearms, face, hands otherwise max (A) DRESSING Upper body: Min (A) hospital gown Lower Body: Max (A) Grooming: Pt denied at all OT sessions EATING: (I) food to mouth, min (A) opening containers ASSESSMENT: Patient is a 57-year-old male referred to occupational therapy services after being admitted through the ER at [facility] for lethargy and hallucinations. Pt was seen previously at [facility] on 12/23/17 for sepsis due to diabetic ulcers in setting of Bipolar Disorder, chronic back pain, lower extremity edema, obesity, diabetes mellitus, diabetic neuropathy, diabetic foot ulcers, rheumatoid arthritis, osteoarthritis bilateral knees, sacral decubitus ulcer, chronic renal insufficiency, coronary artery disease, crohn's disease, s/p colectomy, anemia, urinary tract infection, dyslipidemia, hypoandrogenism, cholelithiasis, hypertension. Pt was seen for 6 OT sessions and made little progress as pt had multiple refusals/unable to participate during OT sessions due to medical status. OT recommends that pt return to the [facility] when medically cleared per MD. GOALS 1. Transfers SBA, FWW 2. Dressing: Sitting on side of bed, pt will be able to put at least one of his UE into the hospital gown (I) with min verbal cues. 3. Bathing: Sitting on side of bed pt will be able to wash face, (B) UE and abdomen (I) with min verbal cues. 4. Eating: Pt will be able to cut his own food with use of adaptive equipment and min verbal cues. Pt met goal 1 and 4. PLAN: Return to The [facility] TREATMENT CODES/TIME: G Codes in the area of self- : washing oneself, toileting, dressing, eating and drinking, current status GO [id number] CL projected status GO [id number]. Discharge status GO [id number]. Suzanne Javier OTR/L
--- NOTE | 2018-02-10 09:50 | PDOC.CMDIS ---
LACE Index Scoring Tool - Questions: Length of Stay (in days): 14 or more Acuity (Admit via E.D.?): Yes Comorbidities: Diabetes w/o Complication, Liver or Renal Disease E.D. Visits: 6 - Answers: Total Score: 19 Risk of Readmission: High Risk Care Management Discharge Reason for Hospitalization: Hypotension, dehydration, JESUS on CKD, UTI Discharge Plan: Brendan will return to the [facility] when ready per MD, he will require once daily ingot caster IV ABX of which the [facility] is able to manage upon discharge-the [facility] did request first dose to be sent with Brendan which RNCC, Maria C and Pharmacy; Rosa coordinated. He will transport via [facility] W/C qcue coordinated by this video game script writer. Patient/Family Education Needs: Review discharge instructions, discuss Ask Me Three. Services Needed at Discharge: Residential Facility ([facility] ), Transportation ([facility] W/C Van )
--- NOTE | 2018-02-10 10:07 | CMDISCH_ITS ---
LACE Index Scoring Tool - Questions: Length of Stay (in days): 14 or more Acuity (Admit via E.D.?): Yes Comorbidities: Diabetes w/o Complication, Liver or Renal Disease E.D. Visits: 6 - Answers: Total Score: 19 Risk of Readmission: High Risk Care Management Discharge Reason for Hospitalization: Hypotension, dehydration, JESUS on CKD, UTI Discharge Plan: Brendan will return to the [facility] when ready per MD, he will require once daily design director IV ABX of which the [facility] is able to manage upon discharge- the [facility] did request first dose to be sent with Brendan which [facility], [facility] Pharmacy; Rosa coordinated. He will transport via [employer] coordinated by this music writer. Patient/Family Education Needs: Review discharge instructions, discuss Ask Me Three. Services Needed at Discharge: [facility] Facility ([facility] ), Transportation ([employer] [facility] [facility] )
--- NOTE | 2018-02-10 10:24 | DSE_ITS ---
Date of service: 02/10/18 Time of Service: 10:19 DS: Diagnosis Discharge Diagnosis (1) MRSA bacteremia: Status: Resolved (2) Acute on chronic kidney failure: Status: Acute (3) Hypertension: Status: Chronic (4) Diabetes mellitus type 2, controlled: Status: Chronic (5) Anemia: Status: Chronic (6) Hypothyroidism: Status: Chronic (7) Back pain: Status: Chronic (8) Adrenal insufficiency: Status: Chronic Discharge Plan Disposition Patient Disposition: SNF (LEVEL 1) [facility] Condition: Improving Discharge Details Reason For Visit: HYPOTENSION, DEHYDRATION, JESUS ON CKD, UTI Admit Date/Time: 01/26/18 20:19 Admit Provider: Manuel Fisher Attending Provider: Manuel Fisher Primary Care Provider: Anne Horowitz [facility] Course Hospital Course: Brendan Corley is a 57 year old resident of the [facility] with a past medical history significant for obesity, coronary artery disease, previous cardiac arrest in October 2017, essential hypertension, adrenal insufficiency, toxic metabolic encephalopathy, acute on chronic kidney failure, diabetes with diabetic foot ulcerations, hypothyroidism, RA, Crohns disease. He is currently being treated for MRSA bacteremia and with cardiac murmur there is concern for endocarditis. He is scheduled to receive a 6 week course of IV Vancomycin. Repeat blood cultures drawn on 01/28/18 were negative. Six week course of therapy will end on March 11, 2017. He originally presented to the ED with acute mental status change. He was lethargic and experiencing hallucinations. He was noted to be dehydrated upon arrival to the ED and was found to have sepsis. The sepsis was likely on the basis of excoriations on his skin from scratching. He notes that the [facility] recently changed his laundry detergent and that his pruritus has improved since that time. EKG was noted to be sinus bradycardia with first-degree block with a rate of [address] elevation or depression. Laboratory workup demonstrate a leukocytosis of 17,000 and a stable anemia with hemoglobin 9.4 g. He had a metabolic acidosis with a serum bicarbonate of 16 anion gap of 14 along with acute kidney injury with a BUN of 87 and creatinine 5.24. Lactate level 0.8. Troponin was negative. TSH was normal. Urinalysis showed greater than 50 white cells and large amount leukocyte esterase suggestive of a UTI. CT scan of his head failed to show any acute abnormalities. Chest x-ray showed some linear bibasilar opacities suggestive of subsegmental atelectasis, he did not have any symptoms of pneumonia. With IV fluids blood pressure improved and he became more awake and alert. He was admitted to the intensive care unit for treatment of severe dehydration, acute kidney injury, sepsis from thought to be from complicated UTI, however the urine culture did not support this. Also of importance was a presentation with hyperkalemia of 6.8 whereas his baseline potassium was 4.2. Patient was treated in the emergency room with IV dextrose 50% and insulin 5 units subcutaneous and calcium chloride 1 g IV push. Also after obtaining blood and urine cultures he was started on Zosyn 3.375 g IV. He was treated and stepped down to the Med/Surg unit. His blood cultures grew MRSA and he was noted to have a cardiac murmur that was not previously noted on his chart, giving concern for potential endocarditis. TTE did not show signs of vegetation. KELLEE was ordered but cancelled due to his tenuous respiratory status. He was originally placed on high dose steroids which were tapered as his condition improved. On 02/03/18, he was noted to be less easily awakened, he reported weakness, had some respiratory distress with increased work of breathing, he received 2 units of PRBCs for symptomatic anemia, his hgb and hct have remained stable since the transfusion. On 02/04/18 he was referred for chest x-ray which revealed a small right pleural effusion, no pneumonia. IV steroids were restarted with rapid resolution of his weakness. He will need a long steroid taper back to his usual prednisone dose. His blood sugars have been elevated in the setting of high dose steroids. Adjustments have been made to his insulins. He will require close monitoring of his blood sugars as his steroids are tapered. Medication changes were made in the setting of hypertension as well as acute on chronic kidney injury. Lisinopril has been discontinued, he should remain off due to recurrent JESUS on CKD. Victoza discontinued due to nephrotoxicity, this may be revisited in the future. Nortriptyline discontinued, gabapentin dose decreased. He was previously on Coreg, but was changed to a separate alpha/beta lia combination with Metoprolol with Terazosin for more flexible titration. His effexor was decreased to 37.5 mg TID. His chronic diabetic foot ulcers were assessed by Dr. Ashford, Podiatry, who made recommendations for dressings, he did not believe this was a potential source of bacteremia as they are healing well. He returns to the [facility] today. He need to complete a full 6 week course of Vancomycin for MRSA bacteremia with concern for endocarditis. His antibiotic course will be completed on 03/11/18. He will need to be monitored as he tapers prednisone down to his usual dose. He will need follow up labs in 3 days time to reassess his blood counts, and renal function as well as his electrolytes. His vanco trough will need to be monitored per pharmacy. Home Meds and New Rx's Prescriptions: New acetaminophen [Tylenol] 325 mg Tablet 325 - 650 mg PO Q4H PRN PRNQty: 0 RF: 0 gabapentin 300 mg Capsule 300 mg PO TID Qty: 0 RF: 0 venlafaxine 75 mg Tablet 37.5 mg PO TID Qty: 0 RF: 0 levothyroxine 25 mcg Tablet 37.5 mcg PO 0600 Qty: 0 RF: 0 hydralazine 10 mg Tablet 10 mg PO TID Qty: 0 RF: 0 terazosin 2 mg Capsule 4 mg PO BID Qty: 0 RF: 0 hydroxyzine HCl 25 mg Tablet 25 mg PO Q6H PRN PRN (Reason: Itching) Qty: 0 RF: 0 Novolog Flexpen U-100 Insulin 100 unit/mL Insulin Pen subcut 0800,1200,1700 Qty: 0 RF: 0 Novolog Flexpen U-100 Insulin 100 unit/mL Insulin Pen 1 units subcut 0800,1200,1700 Qty: 0 RF: 0 metoprolol tartrate 25 mg Tablet 25 mg PO Q12H Qty: 0 RF: 0 magnesium chloride [Mag 64] 64 mg Tablet,Delayed Release (Dr/Ec) 64 mg PO BID Qty: 0 RF: 0 MediHoney (honey) 80 % Gel 1 ml Topical DIRECTED Qty: 0 RF: 0 vancomycin in 0.9 % sodium chl 500 mg/100 mL piggyback 750 mg IV Q24H Qty: 1200 RF: 0 prednisone 10 mg tablet 10 mg PO DAILY Qty: 28 RF: 0 Continued furosemide 40 mg Tablet 40 mg PO DAILY RF: 0 loperamide 2 mg Capsule 2 mg PO QID PRNRF: 0 trazodone 50 mg Tablet 50 mg PO HS RF: 0 cyanocobalamin (vitamin B-12) 1,000 mcg Tablet 1,000 mcg PO DAILY RF: 0 aspirin [Aspirin Low Dose] 81 mg Tablet,Delayed Release (Dr/Ec) 81 mg PO BID RF: 0 risperidone 3 mg Tablet 3 mg PO HS RF: 0 carbamazepine 100 mg Tablet,Chewable 100 mg PO TID RF: 0 sertraline 25 mg Tablet 25 mg PO DAILY RF: 0 omeprazole 20 mg Capsule,Delayed Release(Dr/Ec) 20 mg PO DAILY RF: 0 folic acid 1 mg Tablet 1 mg PO DAILY RF: 0 multivitamin with iron [One Daily Multi-Vit w-Mineral] Tablet 1 tab PO DAILY RF: 0 omega [id number]-fish oil [Fish Oil] 1,000 mg (120 mg-180 mg) Capsule 2 cap PO DAILY RF: 0 clonidine HCl [Catapres] 0.1 mg Tablet 0.3 mg PO TID Qty: 0 RF: 0 ammonium lactate 12 % Lotion See Rx Instructions .ROUTE .COMPLEX Qty: 0 RF: 0 amlodipine 5 mg Tablet 10 mg PO DAILY Qty: 0 RF: 0 ascorbic acid (vitamin C) [Vitamin C] 500 mg Tablet 500 mg PO BID Qty: 0 RF: 0 ferrous sulfate 325 mg (65 mg iron) Tablet 325 mg PO BID Qty: 0 RF: 0 melatonin 3 mg Tablet Extended Release 9 mg PO DAILY@0000 Qty: 0 RF: 0 Changed Lantus Solostar U-100 Insulin 100 unit/mL (3 mL) Insulin Pen 45 unit subcut DAILY Qty: 0 RF: 0 Discontinued prednisone 10 mg Tablet 10 mg PO DAILY RF: 0 venlafaxine 75 mg Tablet 75 mg PO TID RF: 0 loperamide 2 mg Capsule 2 mg PO DAILY RF: 0 acetaminophen [Acetaminophen Extra Strength] 500 mg Tablet 500 mg PO BID RF: 0 nortriptyline 25 mg Capsule 25 mg PO DAILY RF: 0 gabapentin 800 mg Tablet 800 mg PO TID RF: 0 levothyroxine 50 mcg Tablet 50 mcg PO DAILY RF: 0 Victoza 2-Saleem 0.6 mg/0.1 mL (18 mg/3 mL) Pen Injector 1.2 mg SUBCUT DAILY RF: 0 amoxicillin-pot clavulanate 875-125 mg Tablet 1 tab PO BID Qty: 19 RF: 0 Novolog Flexpen U-100 Insulin 100 unit/mL Insulin Pen See Rx Instructions .ROUTE .COMPLEX Qty: 0 RF: 0 lisinopril 10 mg Tablet 10 mg PO DAILY Qty: 0 RF: 0 carvedilol [Coreg] 6.25 mg tablet 6.25 mg PO BID Qty: 60 RF: 0 Discharge Instructions Instructions: Sepsis (GEN), Bacteremia (DC) Additional Instructions: Taper prednisone: take 50 mg po daily x2 days, then 40 mg po daily x2 days, then 30 mg po daily x2 days, then 20 mg po daily x2 days, then resume usual 10 mg daily./\ Stand Alone Forms: Nursing Discharge Form Referrals: Anne Horowitz MD, [place] [Primary Care Provider] - Activity:: Activity as Tolerated Equipment/Supplies:: No Equipment Needed Diet:: Carb Counting Discharge Orders Discharge Orders: Discharge Order (Routine); Ordered 02/10/18 Ordered By: Racquel Cole Other Ambulatory Orders: Basic Metabolic Panel (Routine) Timeframe: 3 Days Location: Determined by Patient Ordered By: Racquel Cole Complete Blood Count No Diff (Routine) Timeframe: 3 Days Location: Determined by Patient Ordered By: Racquel Cole Magnesium (Routine) Timeframe: 3 Days Location: Determined by Patient Ordered By: Racquel Cole Vancomycin, Trough (Routine) Location: Determined by Patient Ordered By: Racquel Cole Exam Narrative Exam Narrative: General: Obese middle-aged male, he is resting in bed with eyes closed, he awakens easily. Neurological: Pupils are equal and round, no focal deficits, answers questions appropriately, moves extremities freely. HEENT: normocephalic, atraumatic, pupils are equal and round, mucous membranes moist, very poor dentition, missing many teeth. Neck: supple, no JVD Cardiovascular: RRR, distant heart sounds, 2/6 murmur noted at LSB. Lungs: Respirations even and unlabored, diminished lung sounds throughout, no rales, rhonchi or wheezing. Gastrointestinal: abdomen soft, nontender, nondistended; cholecystostomy drain in place, draining nonpurulent fluid; Ostomy in place and draining, stoma pink. Extremities: mild edema to bilateral lower extremities. RUE edema improving. Pedal pulses palpable bilaterally. Deep purple discoloration to bilateral lower extremities. Skin: excoriations over bilateral lower extremities, healing, he has venous stasis changes to BLEs. Also with sores to bilateral feet/toes. DS: Data Vitals/I&O Vitals and I&O: Vital Signs Temperature 36.6 C 02/10/18 07:45 Temperature Source Tympanic 02/10/18 07:45 Pulse 61 02/10/18 07:45 Pulse Rhythm Regular 02/09/18 23:30 Pulse 73 01/28/18 18:00 Respiratory Rate 17 02/10/18 07:45 Respiratory Effort Non-Labored 02/09/18 23:30 Respiratory Depth Normal 02/09/18 23:30 Respiratory Pattern Normal 02/09/18 23:30 Blood Pressure 152/68 H 02/10/18 07:45 Blood Pressure Mean 94 01/28/18 17:14 Blood Pressure Position Supine 01/28/18 16:55 Pulse Oximetry 95 02/10/18 07:45 Oxygen Delivery Method Room Air 02/10/18 07:45 Oxygen Flow Rate 0 02/10/18 07:45 Pain Level 0 02/10/18 07:45 Comment 02/04/18 08:10 Intake & Output 02/09/18 02/09/18 02/10/18 11:59 23:59 11:59 Intake Total 490 / 1220 730 / 1220 Output Total 1675 / 3580 1905 / 3580 990 / 990 Balance -1185 / -2360 -1175 / -2360 -990 / -990 Weight 107.2 kg 106.1 kg Intake: IV 280 / 280 Oral 490 / 940 450 / 940 Output: Drainage 75 / 265 190 / 265 100 / 100 Right Lateral Abdomen 75 / 265 190 / 265 100 / 100 Urine 750 / 1450 700 / 1450 615 / 615 Stool 850 / 1865 1015 / 1865 275 / 275 Other: Urine Color Yellow Yellow Yellow Urine Appearance Clear Clear Clear Urine Odor Normal Normal Normal Comment pt did not make it to urinal in time. Did a whole bed change because he missed the urinal Voiding Methods Urinal Urinal Urinal Completed studies during hospitalization [Text1]: 01/26/18: CT BRAIN: Noncontrast examination was performed. There is mild cerebral atrophy consistent with the patient's age. No intracranial hemorrhage, infarct, midline shift or mass effect is identified. The ventricles are intact. The basilar cisterns are patent. The visualized paranasal sinuses are clear. No fluid levels are seen. The mastoid air cells are well pneumatized. The calvarium is intact. IMPRESSION: No acute intracranial process CHEST X-RAY: Comparison 11/09/17 Heart size is within normal limits. There is unchanged mild prominence of the pulmonary vasculature. Small right pleural effusion is present. There are bilateral basilar linear infiltrates likely reflecting atelectasis. IMPRESSION: 1. Subsegmental atelectasis in lung bases. 2. Small right pleural effusion and pulmonary venous congestion. 01/27/18: Impressions: There are no typical features of vegetative endocarditis. Summary: 1. Left ventricle: The cavity size was normal. Wall thickness was increased in a pattern of moderate LVH. Systolic function was normal. The estimated ejection fraction was 55-60%. Wall motion was normal; there were no regional wall motion abnormalities. 2. Right ventricle: The cavity size was normal. Wall thickness was increased. Systolic function was normal. 01/31/18: AP AND LATERAL CHEST: Comparison is made with 26 Jan 2018. The AP view is poorly penetrated. The lateral view shows poor pulmonary inflation. There are again noted to be tiny bilateral pleural effusions. There is mild vascular prominence which appears somewhat improved when compared with the previous exam. No focal infiltrate is seen. IMPRESSION: Question of mild CHF. 02/04/18: CHEST: AP and lateral. Comparison 01/26/18 and 01/31/18. The heart size is within normal limits and the pulmonary vasculature is within normal limits. There is a small right pleural effusion again noted. The lungs are otherwise clear. The lungs do appear to be hyperinflated suggesting underlying COPD. IMPRESSION: Small right pleural effusion. Labs on day of discharge: Labs from last 24 hours 02/10/18 02/09/18 02/09/18 06:45 13:40 13:40 WBC 10.82 H RBC 4.11 L Hgb 9.4 L Hct 30.7 L MCV 74.7 L MCH 22.9 L MCHC 30.6 L RDW 20.5 H Plt Count 443 H MPV 9.9 Creatinine 2.28 H Estimated GFR/1.73 m2 29.65 Vancomycin Trough 20.3 H* Preliminary micro results at discharge 02/05/18 09:00 Blood Culture - Preliminary Blood NO GROWTH 96 HOURS 02/05/18 08:40 Blood Culture - Preliminary Blood NO GROWTH 96 HOURS PFSH Diabetic foot ulcer (Chronic) Poorly controlled type 2 diabetes mellitus with circulatory disorder (Chronic) CKD (chronic kidney disease) (Chronic) Cardiopulmonary arrest with successful resuscitation (Resolved) Heme positive stool (Chronic) Pedal edema (Chronic) Chronic insomnia (Chronic) Anxiety (Chronic) Diabetes mellitus type 2, controlled (Chronic) Hypertension (Chronic) Chronic pain (Chronic) Hypothyroidism (Chronic) Obesity (Chronic) Back pain (Chronic 06/21/13) Inability to get out of bed (Chronic 06/21/13) Poor self care (Chronic 06/21/13) Chronic bipolar disorder (Chronic) CAD (coronary artery disease) (Chronic) Dyslipidemia (Chronic) Hypoandrogenism (Chronic) Rheumatoid arthritis (Chronic) Crohns disease (Chronic) Osteoarthritis of both knees (Chronic) Cholelithiasis (Chronic) Impaired mobility and ADLs (Chronic) Acute congestive heart failure (Chronic) Hemorrhagic cystitis (Chronic) Anemia (Chronic) Bipolar 1 disorder (Chronic) CAD (coronary artery disease) (Chronic) Chronic anxiety (Chronic) Chronic pain (Chronic) 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) Dyslipidemia (Chronic) Hypertension (Chronic) Surgical History Arthroplasty of knee (Resolved 03/18/12) Fracture, Open Treatment (Resolved) Medical History CKD (chronic kidney disease) (Chronic) Cardiopulmonary arrest with successful resuscitation (Resolved) Heme positive stool (Chronic) Pedal edema (Chronic) Chronic insomnia (Chronic) Anxiety (Chronic) Diabetes mellitus type 2, controlled (Chronic) Hypertension (Chronic) Chronic pain (Chronic) Hypothyroidism (Chronic) Obesity (Chronic) Back pain (Chronic 06/21/13) Inability to get out of bed (Chronic 06/21/13) Poor self care (Chronic 06/21/13) Chronic bipolar disorder (Chronic) CAD (coronary artery disease) (Chronic) Dyslipidemia (Chronic) Hypoandrogenism (Chronic) Rheumatoid arthritis (Chronic) Crohns disease (Chronic) Osteoarthritis of both knees (Chronic) Cholelithiasis (Chronic) Impaired mobility and ADLs (Chronic) Acute congestive heart failure (Chronic) Hemorrhagic cystitis (Chronic) Anemia (Chronic) Bipolar 1 disorder (Chronic) CAD (coronary artery disease) (Chronic) Chronic anxiety (Chronic) Chronic pain (Chronic) 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) Dyslipidemia (Chronic) Hypertension (Chronic) Social History [facility] Smoking/Tobacco Use Status: Never Surgical History Arthroplasty of knee (Resolved 03/18/12) Fracture, Open Treatment (Resolved) Social History housing: [facility] Smoking/Tobacco Use Status: Never
[2018-02-10 10:30] VITALS: BP 119/68; PULSE 55; RESP 16; TEMP 36.4; O2SAT 93
== END 2018-02-10 11:40 | disposition skilled nursing facility (03) | DRG 871 ==
LOC: ER 20:45 → ICU 01-27 08:04 → MS 02-03 09:18 → ICU 02-12 13:51
PROVIDERS: Family Medicine; Internal Medicine; Nurse Practitioner; Nurse Practitioner Acute Care; Admitting Provider Internal Medicine; Emergency Provider Physician Assistant; PCP Family Medicine; Visit Provider Internal Medicine
DX: A41.02 Sepsis due to Methicillin resistant Staphylococcus aureus (principal); G92 Toxic encephalopathy; N17.9 Acute kidney failure, unspecified; E27.40 Unspecified adrenocortical insufficiency; J98.11 Atelectasis; E87.2 Acidosis; J90 Pleural effusion, not elsewhere classified; B37.49 Other urogenital candidiasis; B35.1 Tinea unguium; N18.9 Chronic kidney disease, unspecified; I12.9 Hypertensive chronic kidney disease with stage 1 through stage 4 chronic kidney disease, or unspecified chronic kidney disease; E11.22 Type 2 diabetes mellitus with diabetic chronic kidney disease; D64.9 Anemia, unspecified; E03.9 Hypothyroidism, unspecified; M54.9 Dorsalgia, unspecified; E86.0 Dehydration; E87.5 Hyperkalemia; T14.8XXA Other injury of unspecified body region, initial encounter; R06.03 Acute respiratory distress; R53.1 Weakness; E11.65 Type 2 diabetes mellitus with hyperglycemia; T38.0X5A Adverse effect of glucocorticoids and synthetic analogues, initial encounter; I50.9 Heart failure, unspecified; H10.33 Unspecified acute conjunctivitis, bilateral; I51.7 Cardiomegaly; E11.621 Type 2 diabetes mellitus with foot ulcer; M06.9 Rheumatoid arthritis, unspecified; Z93.3 Colostomy status; Z71.3 Dietary counseling and surveillance; R01.1 Cardiac murmur, unspecified; E83.42 Hypomagnesemia; T80.89XA Other complications following infusion, transfusion and therapeutic injection, initial encounter; R60.0 Localized edema; M79.602 Pain in left arm; E66.9 Obesity, unspecified; I25.10 Atherosclerotic heart disease of native coronary artery without angina pectoris
CPT/HCPCS: 36410; 36415; 36416; 36430; 36569; 76770; 80048; 80053; 82550; 82962; 85027; 85652; 86850; 86900; 86901; 86920; 87040; 87077; 87081; 93005; 93306; 94640; 96361; 96365; 96366; 96372; 96375; 97110; 97163; 97166; 97530; 97535; 99221; 99223; 99232; 99233; 99239; 99285; 70450; 71046; 80202; 81003; 81015; 82565; 82728; 83540; 83550; 83605; 83735; 84132; 84443; 84484; 85014; 85018; 85025; 85610; 85730; 86140; 87086; 87186; 87324; 93010; J0610; J1644; J1720; J1940; J2543; J3475; J3490; J7512; J7613; J7620; P9016

== ENCOUNTER → 2018-02-02 08:29 | Outpatient (BNVA) | payer MEDICARE, MEDICAID, SELFPAY | PROVIDERS: PCP Family Medicine; Visit Provider Internal Medicine Interventional Cardiology | DX: R69 Illness, unspecified (principal) ==

== ENCOUNTER → 2018-02-04 08:13 | Outpatient (BNVA) | payer MEDICARE, MEDICAID, SELFPAY | PROVIDERS: PCP Family Medicine; Visit Provider Student in an Organized Health Care Education/Training Program | DX: R69 Illness, unspecified (principal) ==

== ENCOUNTER 2018-02-13 11:48 | Outpatient (REF) | payer MEDICARE, MEDICAID, SELFPAY ==
[2018-02-13 13:29] LABS: HGB 9.5 g/dL (13.5-17.5); Mean Corp. HGB Concentration 30.6 g/dL (32.0-36.0); Mean Corpuscular Hemoglobin 23.3 pg (27.0-33.0); Mean Platelet Volume 10.1 fL (8.0-11.0); Platelet Count 350 x1000/uL (130-400); RBC 4.08 m/cumm (4.50-6.00); RBC Distribution Width 21.1 % (11.8-14.1); White Blood Cell Count 13.91 k/cumm (4.4-10.8)
[2018-02-13 13:41] LABS: Hemoglobin A1C 7.5 % (4.5-6.2)
[2018-02-13 14:04] LABS: ALT 43 U/L (12-78); AST 17 U/L (15-37); Albumin 2.5 g/dL (3.4-5.0); Alkaline Phosphatase 246 U/L (46-116); Anion Gap 8.7 mmol/L (3-11); BUN 45 mg/dL (7-18); Bilirubin, Total 0.3 mg/dL (0.2-1.0); CO2 21.3 mmol/L (21.0-32.0); CREATININE 1.83 mg/dL (0.70-1.30); Calcium 8.1 mg/dL (8.5-10.1); Chloride 109 mmol/L (98-107); Estimated GFR 38.21 (mL/min/1.73m2); Glucose 263 mg/dL (70-100); Magnesium 1.7 mg/dL (1.8-2.4); Potassium 4.8 mmol/L (3.5-5.1); Sodium 139 mmol/L (136-145); Total Protein 5.9 g/dL (6.4-8.2); Vancomycin, Trough 16.9 ug/mL (10.0-20.0); Vitamin B12 1054 pg/mL (193-986)
== END 2018-02-13 12:08 ==
LOC: LBN 11:48
PROVIDERS: PCP Family Medicine; Visit Provider Family Medicine
DX: I25.10 Atherosclerotic heart disease of native coronary artery without angina pectoris (principal); E83.42 Hypomagnesemia; E11.22 Type 2 diabetes mellitus with diabetic chronic kidney disease; E87.5 Hyperkalemia; D64.9 Anemia, unspecified; R78.81 Bacteremia; Z79.2 Long term (current) use of antibiotics
CPT/HCPCS: 80053; 85027; 80202; 82607; 83036; 83735

== ENCOUNTER 2018-02-20 11:34 | Outpatient (REF) | payer MEDICARE, MEDICAID, SELFPAY ==
[2018-02-20 12:06] LABS: Abs Immature Grans 0.09 k/cumm (0.0-0.09); Absolute Basophil Count 0.02 k/cumm (0.0-0.2); Absolute Eosinophil Count 0.78 k/cumm (0.0-0.7); Absolute Lymphocyte Count 0.71 k/cumm (1.2-3.4); Absolute Monocyte Count 1.05 k/cumm (0.11-0.7); Absolute Neutrophil Count 14.77 k/cumm (1.2-6.7); Basophils % 0.1; Eosinophils % 4.5; HGB 10.2 g/dL (13.5-17.5); Immature Grans % 0.5; Lymphocytes % 4.1; Mean Corp. HGB Concentration 30.9 g/dL (32.0-36.0); Mean Corpuscular Hemoglobin 23.4 pg (27.0-33.0); Mean Corpuscular Volume 75.9 fL (80-95); Mean Platelet Volume 9.7 fL (8.0-11.0); Neutrophils % 84.8; Platelet Count 325 x1000/uL (130-400); RBC 4.35 m/cumm (4.50-6.00); RBC Distribution Width 21.7 % (11.8-14.1); White Blood Cell Count 17.42 k/cumm (4.4-10.8)
[2018-02-20 12:10] LABS: ALT 23 U/L (12-78); AST 12 U/L (15-37); Albumin 2.4 g/dL (3.4-5.0); Alkaline Phosphatase 262 U/L (46-116); Anion Gap 10.2 mmol/L (3-11); BUN 50 mg/dL (7-18); Bilirubin, Total 0.2 mg/dL (0.2-1.0); CO2 19.8 mmol/L (21.0-32.0); CREATININE 2.19 mg/dL (0.70-1.30); Calcium 8.3 mg/dL (8.5-10.1); Chloride 109 mmol/L (98-107); Estimated GFR 31.06 (mL/min/1.73m2); Glucose 346 mg/dL (70-100); Sodium 139 mmol/L (136-145); Vancomycin, Trough 17.9 ug/mL (10.0-20.0)
== END 2018-02-20 11:54 ==
LOC: LBN 11:34
PROVIDERS: PCP Family Medicine; Visit Provider Family Medicine
DX: I10 Essential (primary) hypertension (principal); R53.83 Other fatigue; Z79.2 Long term (current) use of antibiotics; A41.9 Sepsis, unspecified organism
CPT/HCPCS: 80053; 80202; 85025

== ENCOUNTER 2018-02-26 09:03 | Outpatient (REF) | payer MEDICARE, MEDICAID, SELFPAY ==
[2018-02-26 09:22] LABS: Abs Immature Grans 0.11 k/cumm (0.0-0.09); Absolute Lymphocyte Count 1.08 k/cumm (1.2-3.4); Basophils % 0.4; HCT 31.5 % (40.0-50.0); Immature Grans % 0.8; Lymphocytes % 8.1; Mean Corp. HGB Concentration 31.7 g/dL (32.0-36.0); Mean Corpuscular Hemoglobin 23.5 pg (27.0-33.0); Mean Corpuscular Volume 73.9 fL (80-95); Mean Platelet Volume 9.8 fL (8.0-11.0); Monocytes % 5.8; Neutrophils % 78.9; Platelet Count 349 x1000/uL (130-400); RBC 4.26 m/cumm (4.50-6.00); RBC Distribution Width 21.1 % (11.8-14.1); White Blood Cell Count 13.35 k/cumm (4.4-10.8)
[2018-02-26 09:34] LABS: ALT 14 U/L (12-78); AST 9 U/L (15-37); Absolute Basophil Count 0.05 k/cumm (0.0-0.2); Absolute Monocyte Count 0.77 k/cumm (0.11-0.7); Absolute Neutrophil Count 10.53 k/cumm (1.2-6.7); Alkaline Phosphatase 258 U/L (46-116); Anion Gap 10.6 mmol/L (3-11); BUN 43 mg/dL (7-18); Bilirubin, Total 0.3 mg/dL (0.2-1.0); CO2 22.4 mmol/L (21.0-32.0); CREATININE 2.51 mg/dL (0.70-1.30); Calcium 8.8 mg/dL (8.5-10.1); Chloride 103 mmol/L (98-107); Estimated GFR 26.54 (mL/min/1.73m2); Glucose 343 mg/dL (70-100); Potassium 3.6 mmol/L (3.5-5.1); Sodium 136 mmol/L (136-145); Total Protein 6.7 g/dL (6.4-8.2)
[2018-02-26 09:53] LABS: Anisocytosis 2+; Diff Comment RBC Morph Reviewed; Hypochromasia 1+; Microcytosis 2+; Polychromasia Present
[2018-02-26 09:54] LABS: Poikilocytes 2+
[2018-02-26 10:15] LABS: Vancomycin, Trough 16.8 ug/mL (10.0-20.0)
== END 2018-02-26 09:23 ==
LOC: LBN 09:03
PROVIDERS: PCP Family Medicine; Visit Provider Family Medicine
DX: R78.81 Bacteremia (principal); Z79.2 Long term (current) use of antibiotics; R53.83 Other fatigue; I10 Essential (primary) hypertension
CPT/HCPCS: 80053; 80202; 85025

== ENCOUNTER 2018-02-28 10:02 | Outpatient (REF) | payer MEDICARE, MEDICAID, SELFPAY ==
[2018-02-28 11:41] LABS: Bilirubin Negative (Negative); Blood Trace-intact (Negative); Clarity Cloudy; Glucose 250 mg/dL (Negative); Ketones Negative (Negative); Leukocyte Esterase Large (Negative); Nitrite Negative (Negative); Urobilinogen 0.2 EU/dL (Up TO 0.2)
[2018-02-28 11:52] LABS: Bacteria Moderate HPF (Negative); Casts Negative LPF (Negative); Crystals Moderate Amorphous HPF (Negative); Epithelial Cells Negative HPF (Negative); Mucus Negative (Negative); Other Cells Moderate Yeast (Negative); WBC >50 HPF (0-5)
[2018-02-28 11:53] LABS: C & S Indicated? Yes
== END 2018-02-28 10:22 ==
LOC: LBN 10:02
PROVIDERS: PCP Family Medicine; Visit Provider Family Medicine
DX: R30.0 Dysuria (principal); N18.9 Chronic kidney disease, unspecified; R53.81 Other malaise
CPT/HCPCS: 87077; 81003; 81015; 87086

== ENCOUNTER 2018-03-01 09:11 | Inpatient (IN) | payer MEDICARE, MEDICAID, SELFPAY ==
[2018-03-01] VITALS (16 sets, daily range): BP systolic 129–173; BP diastolic 66–97; PULSE 60–80; RESP 14–24; TEMP 36.4–37.4; O2SAT 96–99
[2018-03-01] MEDS: Lactated Ringers 1,000 ML 1000 ML IV (09:41)
--- NOTE | 2018-03-01 09:43 | NUR.NOTE ---
Nursing Note: pt. is chronically on antibiotics. Pt. is alert, oriented X4 on arrival, admits to fatigue, denies any pain or SOB. PICC dressing is clean dry and intact, no blood return.
[2018-03-01 09:48] LABS: Abs Immature Grans 0.23 k/cumm (0.0-0.09); Absolute Basophil Count 0.05 k/cumm (0.0-0.2); Absolute Lymphocyte Count 1.03 k/cumm (1.2-3.4); Basophils % 0.4; Eosinophils % 1.5; HCT 31.8 % (40.0-50.0); HGB 10.1 g/dL (13.5-17.5); Immature Grans % 1.9; Lymphocytes % 8.3; Mean Corp. HGB Concentration 31.8 g/dL (32.0-36.0); Mean Corpuscular Hemoglobin 23.2 pg (27.0-33.0); Mean Corpuscular Volume 73.1 fL (80-95); Mean Platelet Volume 9.7 fL (8.0-11.0); Monocytes % 6.5; Neutrophils % 81.4; Platelet Count 433 x1000/uL (130-400); RBC 4.35 m/cumm (4.50-6.00); RBC Distribution Width 20.4 % (11.8-14.1); White Blood Cell Count 12.36 k/cumm (4.4-10.8)
[2018-03-01 09:50] LABS: Bilirubin Negative (Negative); Blood Trace-lysed (Negative); Clarity Sl Cloudy; Glucose 500 mg/dL (Negative); Ketones Negative (Negative); Leukocyte Esterase Small (Negative); Nitrite Negative (Negative); Specific Gravity 1.015 (1.005-1.025); Urobilinogen 0.2 EU/dL (Up TO 0.2)
[2018-03-01 09:54] LABS: Absolute Eosinophil Count 0.19 k/cumm (0.0-0.7); Absolute Neutrophil Count 10.06 k/cumm (1.2-6.7)
[2018-03-01 09:56] LABS: Lactate-non-spesis 1.9 mmol/L (0.6-1.4)
[2018-03-01 10:12] LABS: ALT 14 U/L (12-78); AST 6 U/L (15-37); Albumin 2.4 g/dL (3.4-5.0); Alkaline Phosphatase 278 U/L (46-116); Bilirubin, Direct 0.08 mg/dL (0.00-0.20); Bilirubin, Total 0.2 mg/dL (0.2-1.0); Magnesium 1.9 mg/dL (1.8-2.4)
[2018-03-01 10:14] LABS: Diff Comment RBC Morph Reviewed
--- NOTE | 2018-03-01 10:14 | NUR.NOTE ---
Nursing Note: pt. continues to be in no distress, VSS on the monitor. Drinking PO fluids as okay'd by MD Fraga.
[2018-03-01 10:15] LABS: Microcytosis 2+; Ovalocytes 2+; Tear Drop Cells 2+
[2018-03-01 10:17] LABS: Epithelial Cells Negative HPF (Negative); RBC Negative (0-2); WBC 20-50 HPF (0-5)
[2018-03-01 10:18] LABS: ALT 13 U/L (12-78); AST 3 U/L (15-37); Albumin 2.3 g/dL (3.4-5.0); Alkaline Phosphatase 273 U/L (46-116); Anion Gap 11.7 mmol/L (3-11); BUN 60 mg/dL (7-18); Bacteria Moderate HPF (Negative); Bilirubin, Total 0.2 mg/dL (0.2-1.0); C & S Indicated? Yes; CO2 21.3 mmol/L (21.0-32.0); CREATININE 2.99 mg/dL (0.70-1.30); Calcium 9.2 mg/dL (8.5-10.1); Casts Negative LPF (Negative); Chloride 103 mmol/L (98-107); Crystals Negative HPF (Negative); Estimated GFR 21.68 (mL/min/1.73m2); Glucose 449 mg/dL (70-100); Mucus Negative (Negative); Other Cells Moderate Yeast (Negative); Potassium 4.4 mmol/L (3.5-5.1); Sodium 136 mmol/L (136-145); Total Protein 7.1 g/dL (6.4-8.2)
--- NOTE | 2018-03-01 10:40 | ED.GENADUL_ITS ---
Discharge Plan Disposition Patient Disposition: [facility] INPATIENT Condition: Improving Discharge Details Chief Complaint: Diabetes Clinical Impression: Acute hyperglycemia, Acute dehydration Primary Care Provider: Anne Horowitz ED Provider: Billy Fraga Home Meds and New Rx's Prescriptions: No Action furosemide 40 mg Tablet 40 mg PO DAILY RF: 0 loperamide 2 mg Capsule 2 mg PO QID PRNRF: 0 trazodone 50 mg Tablet 50 mg PO HS RF: 0 cyanocobalamin (vitamin B-12) 1,000 mcg Tablet 1,000 mcg PO DAILY RF: 0 aspirin [Aspirin Low Dose] 81 mg Tablet,Delayed Release (Dr/Ec) 81 mg PO BID RF: 0 risperidone 3 mg Tablet 3 mg PO HS RF: 0 carbamazepine 100 mg Tablet,Chewable 100 mg PO TID RF: 0 sertraline 25 mg Tablet 25 mg PO DAILY RF: 0 omeprazole 20 mg Capsule,Delayed Release(Dr/Ec) 20 mg PO DAILY RF: 0 folic acid 1 mg Tablet 1 mg PO DAILY RF: 0 multivitamin with iron [One Daily Multi-Vit w-Mineral] Tablet 1 tab PO DAILY RF: 0 omega [id number] oil [Fish Oil] 1,000 mg (120 mg-180 mg) Capsule 2 cap PO DAILY RF: 0 clonidine HCl [Catapres] 0.1 mg Tablet 0.3 mg PO TID Qty: 0 RF: 0 ammonium lactate 12 % Lotion See Rx Instructions .ROUTE .COMPLEX Qty: 0 RF: 0 amlodipine 5 mg Tablet 10 mg PO DAILY Qty: 0 RF: 0 ascorbic acid (vitamin C) [Vitamin C] 500 mg Tablet 500 mg PO BID Qty: 0 RF: 0 ferrous sulfate 325 mg (65 mg iron) Tablet 325 mg PO BID Qty: 0 RF: 0 melatonin 3 mg Tablet Extended Release 9 mg PO DAILY@0000 Qty: 0 RF: 0 acetaminophen [Tylenol] 325 mg Tablet 325 - 650 mg PO Q4H PRN PRNQty: 0 RF: 0 gabapentin 300 mg Capsule 300 mg PO TID Qty: 0 RF: 0 venlafaxine 75 mg Tablet 37.5 mg PO TID Qty: 0 RF: 0 levothyroxine 25 mcg Tablet 37.5 mcg PO 0600 Qty: 0 RF: 0 hydralazine 10 mg Tablet 10 mg PO TID Qty: 0 RF: 0 terazosin 2 mg Capsule 4 mg PO BID Qty: 0 RF: 0 hydroxyzine HCl 25 mg Tablet 25 mg PO Q6H PRN PRN (Reason: Itching) Qty: 0 RF: 0 Novolog Flexpen U-100 Insulin 100 unit/mL Insulin Pen subcut 0800,1200,1700 Qty: 0 RF: 0 Novolog Flexpen U-100 Insulin 100 unit/mL Insulin Pen 1 units subcut 0800,1200,1700 Qty: 0 RF: 0 metoprolol tartrate 25 mg Tablet 25 mg PO Q12H Qty: 0 RF: 0 magnesium chloride [Mag 64] 64 mg Tablet,Delayed Release (Dr/Ec) 64 mg PO BID Qty: 0 RF: 0 MediHoney (honey) 80 % Gel 1 ml Topical DIRECTED Qty: 0 RF: 0 vancomycin in 0.9 % sodium chl 500 mg/100 mL piggyback 750 mg IV Q24H Qty: 1200 RF: 0 prednisone 10 mg tablet 10 mg PO DAILY Qty: 28 RF: 0 Lantus Solostar U-100 Insulin 100 unit/mL (3 mL) Insulin Pen 45 unit subcut DAILY Qty: 0 RF: 0 Medical Decision Making 57-year-old gentleman with a complex medical history including recent sepsis associated with cholecystitis and a indwelling percutaneous cholecystostomy tube. Referral from his care facility for increased serum glucose levels and altered mentation. Nonfocal exam on arrival with dry mucosa, no evidence of dermal infectoin at the sites of his PICC line, percutaneous cystostomy tube, or ostomy. His decubitus ulcer appears to be healing well. Labs are significant for WBC = 12, GFR = 21.7, and an initial serum glucose level greater than 500. Was somnolent on arrival but conversant and responded appropriately to questioning. Clinical improved on reevaluation after receiving IV crystalloid and 10 units of aspart. Repeat serum glucose = 199. Patient was more alert and interactive on reevaluation and ate without difficulty. Discussed case with internal medicine hospitalist, Dr. Canela after I discussed outpatient change of percutaneous cholecystostomy tube in the next few days with the [facility] IR Fellow, Dr. Hinton. Admitted to internal medicine for further evaluation and management. Lab Data Lab results reviewed: Yes I reviewed the patient's lab results. 57-year-old male with a complicated past medical history which includes rheumatoid arthritis, Crohn's (history of resection and end colostomy), and recent admission to [facility] and then [facility] admission for enterococcus and group C strep bacteremia. Ultimately diagnosed with septic shock from a cholecystitis and had a percutaneous cholecystostomy tube placed with eventual improvement while on broad-spectrum IV antibiotic. His hospital course at [facility] was complicated by a PEA arrest requiring multiple vasopressors, renal failure, hyperkalemia, and respiratory failure. He is transferred from his long-term care facility with increased fatigue and persistent elevated serum glucose levels despite his usual insulin regimen. On arrival, endorses feeling subjectively fatigued and thirsty. He otherwise denies any specific visual complaints except for coccyx pain associated with a known decubitus ulcer HPI General Date/Time Provider Initiated Documentation: 03/01/18 09:17 . Related Data Home Medications Medication Instructions Recorded Confirmed aspirin [Aspirin Low Dose] 81 mg PO BID 12/23/17 01/26/18 carbamazepine 100 mg PO TID 12/23/17 01/26/18 cyanocobalamin (vitamin B-12) 1,000 mcg PO DAILY 12/23/17 01/26/18 folic acid 1 mg PO DAILY 12/23/17 01/26/18 furosemide 40 mg PO DAILY 12/23/17 01/26/18 loperamide 2 mg PO QID PRN 12/23/17 01/26/18 multivitamin with iron [One Daily 1 tab PO DAILY 12/23/17 01/26/18 Multi-Vit w-Mineral] omega [id number]-nay-fish oil [Fish Oil] 2 cap PO DAILY 12/23/17 01/26/18 omeprazole 20 mg PO DAILY 12/23/17 01/26/18 risperidone 3 mg PO HS 12/23/17 01/26/18 sertraline 25 mg PO DAILY 12/23/17 01/26/18 trazodone 50 mg PO HS 12/23/17 02/10/18 amlodipine 10 mg PO DAILY #0 tab 12/31/17 01/26/18 ammonium lactate See Rx Instructions .ROUTE 12/31/17 01/26/18 .COMPLEX #0 tube ascorbic acid (vitamin C) [Vitamin 500 mg PO BID #0 tab 12/31/17 01/26/18 C] clonidine HCl [Catapres] 0.3 mg PO TID #0 tab 12/31/17 01/26/18 ferrous sulfate 325 mg PO BID #0 tab 12/31/17 01/26/18 melatonin 9 mg PO DAILY@0000 #0 tab 12/31/17 01/26/18 Lantus Solostar U-100 Insulin 45 unit SUBCUT DAILY #0 ml 02/10/18 01/26/18 acetaminophen [Tylenol] 325 - 650 mg PO Q4H PRN PRN #0 tab 02/10/18 gabapentin 300 mg PO TID #0 cap 02/10/18 honey [MediHoney (honey)] 1 ml TOPICAL DIRECTED #0 ml 02/10/18 hydralazine 10 mg PO TID #0 tab 02/10/18 hydroxyzine HCl 25 mg PO Q6H PRN PRN #0 tab 02/10/18 insulin aspart U-100 [Novolog 0 units SUBCUT 0800,1200,1700 #0 ml 02/10/18 Flexpen U-100 Insulin] insulin aspart U-100 [Novolog 1 units SUBCUT 0800,1200,1700 #0 ml 02/10/18 Flexpen U-100 Insulin] levothyroxine 37.5 mcg PO 0600 #0 tab 02/10/18 magnesium chloride [Mag 64] 64 mg PO BID #0 tab 02/10/18 metoprolol tartrate 25 mg PO Q12H #0 tab 02/10/18 prednisone 10 mg PO DAILY #28 tab 02/10/18 terazosin 4 mg PO BID #0 cap 02/10/18 vancomycin in 0.9 % sodium chl 750 mg IV Q24H #1200 ml 02/10/18 venlafaxine 37.5 mg PO TID #0 tab 02/10/18 Previous Rx's Medication Instructions Recorded amlodipine 10 mg PO DAILY #0 tab 12/31/17 ammonium lactate See Rx Instructions .ROUTE 12/31/17 .COMPLEX #0 tube ascorbic acid (vitamin C) [Vitamin 500 mg PO BID #0 tab 12/31/17 C] clonidine HCl [Catapres] 0.3 mg PO TID #0 tab 12/31/17 ferrous sulfate 325 mg PO BID #0 tab 12/31/17 melatonin 9 mg PO DAILY@0000 #0 tab 12/31/17 Lantus Solostar U-100 Insulin 45 unit SUBCUT DAILY #0 ml 02/10/18 acetaminophen [Tylenol] 325 - 650 mg PO Q4H PRN PRN #0 tab 02/10/18 gabapentin 300 mg PO TID #0 cap 02/10/18 honey [MediHoney (honey)] 1 ml TOPICAL DIRECTED #0 ml 02/10/18 hydralazine 10 mg PO TID #0 tab 02/10/18 hydroxyzine HCl 25 mg PO Q6H PRN PRN #0 tab 02/10/18 insulin aspart U-100 [Novolog 0 units SUBCUT 0800,1200,1700 #0 ml 02/10/18 Flexpen U-100 Insulin] insulin aspart U-100 [Novolog 1 units SUBCUT 0800,1200,1700 #0 ml 02/10/18 Flexpen U-100 Insulin] levothyroxine 37.5 mcg PO 0600 #0 tab 02/10/18 magnesium chloride [Mag 64] 64 mg PO BID #0 tab 02/10/18 metoprolol tartrate 25 mg PO Q12H #0 tab 02/10/18 prednisone 10 mg PO DAILY #28 tab 02/10/18 terazosin 4 mg PO BID #0 cap 02/10/18 vancomycin in 0.9 % sodium chl 750 mg IV Q24H #1200 ml 02/10/18 venlafaxine 37.5 mg PO TID #0 tab 02/10/18 Allergies Allergy/AdvReac Type Severity Reaction Status Date / Time No Known Allergies Allergy Unverified 01/26/18 19:46 General Stated Complaint: Diabetes YVES: 2 Review of Systems Review of Systems All systems reviewed & are unremarkable except as noted in HPI and below Constitutional Reports fatigue, Reports malaise and Reports poor appetite Eyes Denies change in vision ENT Reports as per HPI, Denies dysphagia and Denies dizziness Cardiovascular Reports as per HPI, Denies chest pain and Denies dyspnea Respiratory Denies dyspnea Gastrointestinal Denies dysphagia Genitourinary Reports as per HPI, Denies oliguria and Denies difficulty urinating Musculoskeletal Reports as per HPI, Denies back pain and Denies muscle weakness Comments: Pain in coccyx/gluteal region Neurologic Denies confusion and Denies dizziness Psychiatric Reports as per HPI, Denies anxiety, Reports change in appetite and Denies confusion Endocrine Reports fatigue Hematologic/Lymphatic Denies easy bleeding and Denies easy bruising [facility] Surgical History Arthroplasty of knee (Resolved 03/18/12) Fracture, Open Treatment (Resolved) Social History housing: detention Smoking/Tobacco Use Status: Never Exam Const General: cooperative and no acute distress Orientation: alert and awake [facility] Head: normocephalic and atraumatic Eyes Conjunctivae: conjunctivae normal Sclera: sclerae normal Neck Neck: normal visual inspection and full ROM Resp Effort & Inspection: normal respiratory effort Auscultation: clear to auscultation bilaterally, no rales, no rhonchi and no wheezes Cardio Rate: regular rate Rhythm: regular rhythm Heart Sounds: S1 normal and S2 normal GI Palpation: soft, not rigid and nontender Other: Percutaneous cholecystostomy site CDI. Colostomy site CDI. Back/Spine/Pelvis Other: Erythematous dependent tissue involving the gluteal and posterior proximal legs. Previous ulcer with no significant erythema, induration, or discharge. Skin Other: Lower extremity chronic venous stasis changes. Right upper extremity PICC line site CDI Neuro General: alert and awake Speech: speech normal Motor: muscle tone normal throughout Extrem General: no edema Psych Mental Status: mental status grossly normal Speech and Movement: speech and movement normal Course Vital Signs Temperature 97.5 F L 03/01/18 09:11 Pulse 68 03/01/18 09:11 Respiratory Rate 14 03/01/18 09:11 Blood Pressure 154/77 H 03/01/18 09:11 Pulse Oximetry 98 03/01/18 09:11 Temperature 97.5 F L 03/01/18 09:11 Temperature Source Temporal Artery Scan 03/01/18 09:11 Pulse 62 03/01/18 10:01 Pulse 66 03/01/18 10:10 Respiratory Rate 24 03/01/18 10:10 Respiratory Effort 03/01/18 09:15 Blood Pressure 141/69 H 03/01/18 10:01 Blood Pressure Mean 86 03/01/18 10:01 Blood Pressure Position Supine 03/01/18 09:11 Pulse Oximetry 97 03/01/18 10:10 Oxygen Delivery Method Room Air 03/01/18 09:11 Oxygen Flow Rate 0 03/01/18 09:11 Pain Level 0 03/01/18 09:11 Lab/Test Results Lab/Test Results: 03/01/18 09:38 Urine - Reflex from Ua Urine Culture - Pending Laboratory Tests Range/Units 03/01/18 03/01/18 03/01/18 09:38 09:38 09:38 WBC (4.4-10.8) k/cumm 12.36 H RBC (4.50-6.00) m/cumm 4.35 L Hgb (13.5-17.5) g/dL 10.1 L Hct (40.0-50.0) % 31.8 L MCV (80-95) fL 73.1 L MCH (27.0-33.0) pg 23.2 L MCHC (32.0-36.0) g/dL 31.8 L RDW (11.8-14.1) % 20.4 H Plt Count (130-400) x1000/uL 433 H MPV (8.0-11.0) fL 9.7 Immature Gran % 1.9 Neutrophils % 81.4 Lymphocytes % 8.3 Monocytes % 6.5 Eosinophils % 1.5 Basophils % 0.4 Absolute Neutrophils (1.2-6.7) k/cumm 10.06 H Absolute Lymphocytes (1.2-3.4) k/cumm 1.03 L Absolute Monocytes (0.11-0.7) k/cumm 0.80 H Absolute Eosinophils (0.0-0.7) k/cumm 0.19 Absolute Basophils (0.0-0.2) k/cumm 0.05 Differential Comment Rbc morph reviewed RBC Morphology See below Microcytosis 2+ Tear Drop Cells 2+ Ovalocytes 2+ Sodium (136-145) mmol/L 136 Potassium (3.5-5.1) mmol/L 4.4 Chloride (98-107) mmol/L 103 Carbon Dioxide (21.0-32.0) mmol/L 21.3 Anion Gap (3-11) mmol/L 11.7 H BUN (7-18) mg/dL 60 H Creatinine (0.70-1.30) mg/dL 2.99 H Estimated GFR/1.73 m2 (mL/min/1.73m2) 21.68 Glucose (70-100) mg/dL 449 H Lactate (0.6-1.4) mmol/L Calcium (8.5-10.1) mg/dL 9.2 Magnesium (1.8-2.4) mg/dL 1.9 Total Bilirubin (0.2-1.0) mg/dL 0.2 0.2 Conjugated Bilirubin (0.00-0.20) mg/dL 0.08 AST (15-37) U/L 6 L 3 L ALT (12-78) U/L 14 13 Alkaline Phosphatase (46-116) U/L 278 H 273 H Total Protein (6.4-8.2) g/dL 7.0 7.1 Albumin (3.4-5.0) g/dL 2.4 L 2.3 L Urine Color (Yellow) Urine Clarity Urine pH (5-8) Ur Specific [place] (1.005-1.025) Urine Protein (Negative) mg/dL Urine Ketones (Negative) mg/dL Urine Blood (Negative) Urine Nitrite (Negative) Urine Bilirubin (Negative) Urine Urobilinogen (Up TO 0.2) EU/dL Ur Leukocyte Esterase (Negative) Urine RBC (0-2) Urine WBC (0-5) HPF Ur Epithelial Cells (Negative) HPF Urine Crystals (Negative) HPF Urine Bacteria (Negative) HPF Urine Casts (Negative) LPF Urine Mucus (Negative) Urine Other (Negative) Ur Culture Indicated? Urine Glucose (Negative) mg/dL Range/Units 03/01/18 03/01/18 09:38 09:38 WBC (4.4-10.8) k/cumm RBC (4.50-6.00) m/cumm Hgb (13.5-17.5) g/dL Hct (40.0-50.0) % MCV (80-95) fL MCH (27.0-33.0) pg MCHC (32.0-36.0) g/dL RDW (11.8-14.1) % Plt Count (130-400) x1000/uL MPV (8.0-11.0) fL Immature Gran % Neutrophils % Lymphocytes % Monocytes % Eosinophils % Basophils % Absolute Neutrophils (1.2-6.7) k/cumm Absolute Lymphocytes (1.2-3.4) k/cumm Absolute Monocytes (0.11-0.7) k/cumm Absolute Eosinophils (0.0-0.7) k/cumm Absolute Basophils (0.0-0.2) k/cumm Differential Comment RBC Morphology Microcytosis Tear Drop Cells Ovalocytes Sodium (136-145) mmol/L Potassium (3.5-5.1) mmol/L Chloride (98-107) mmol/L Carbon Dioxide (21.0-32.0) mmol/L Anion Gap (3-11) mmol/L BUN (7-18) mg/dL Creatinine (0.70-1.30) mg/dL Estimated GFR/1.73 m2 (mL/min/1.73m2) Glucose (70-100) mg/dL Lactate (0.6-1.4) mmol/L 1.9 H Calcium (8.5-10.1) mg/dL Magnesium (1.8-2.4) mg/dL Total Bilirubin (0.2-1.0) mg/dL Conjugated Bilirubin (0.00-0.20) mg/dL AST (15-37) U/L ALT (12-78) U/L Alkaline Phosphatase (46-116) U/L Total Protein (6.4-8.2) g/dL Albumin (3.4-5.0) g/dL Urine Color (Yellow) Yellow Urine Clarity Sl cloudy Urine pH (5-8) 6.0 Ur Specific [place] (1.005-1.025) 1.015 Urine Protein (Negative) mg/dL 100 H Urine Ketones (Negative) mg/dL Negative Urine Blood (Negative) Trace-lysed H Urine Nitrite (Negative) Negative Urine Bilirubin (Negative) Negative Urine Urobilinogen (Up TO 0.2) EU/dL 0.2 Ur Leukocyte Esterase (Negative) Small H Urine RBC (0-2) Negative Urine WBC (0-5) HPF 20-50 Ur Epithelial Cells (Negative) HPF Negative Urine Crystals (Negative) HPF Negative Urine Bacteria (Negative) HPF Moderate Urine Casts (Negative) LPF Negative Urine Mucus (Negative) Negative Urine Other (Negative) Moderate yeast Ur Culture Indicated? Yes Urine Glucose (Negative) mg/dL 500 H
[2018-03-01] MEDS: Lactated Ringers 500 ML IV (11:27)
[2018-03-01] MEDS: Insulin Aspart 100 UNITS/ML UNIT 10 UNITS SC (11:27)
--- NOTE | 2018-03-01 13:00 | NUR.NOTE ---
patient repositoned, and emptied osotmy and other abdomninal drainage bag Nursing Note:
[2018-03-01 13:22] LABS: Glucose 199 mg/dL (70-100)
--- NOTE | 2018-03-01 13:22 | NUR.NOTE ---
patient fsbs 186mg/dLNursing Note:
--- NOTE | 2018-03-01 13:37 | NUR.NOTE ---
patient eating lunch Nursing Note:
--- NOTE | 2018-03-01 14:10 | DI.RAD_ITS ---
SYMPTOMS/DIAGNOSIS: LETHARGIC, ? PNEUMONIA PORTABLE CHEST: Comparison 01/31/18. The heart size and pulmonary vasculature are within normal limits. There is a right PICC line. The tip of the catheter is seen at the caval atrial junction. The lungs show no focal consolidating infiltrates, effusions or pneumothoraces. IMPRESSION: No definite acute pulmonary process.
--- NOTE | 2018-03-01 14:35 | NUR.NOTE ---
patient alert and orientated, awaiting bed assigmnet, patient drinking po fluids Nursing Note:
--- NOTE | 2018-03-01 14:37 | DI.VRAD_ITS ---
EXAM: XR Chest, 1 View EXAM DATE/TIME: 03/01/2018 1:42 PM CLINICAL HISTORY: 57 years old, male; Signs and symptoms; Other: ? Pna TECHNIQUE: XR of the chest, 1 view. COMPARISON: CR XR CHEST 2V PA LATERAL 02/04/2018 10:11 AM FINDINGS: Tubes, catheters and devices: Right PICC line tip over the atriocaval junction. Lungs: Borderline interstitial pattern suggesting pulmonary interstitial edema and/or interstitial pneumonia. Pleural space: Unremarkable. No pleural effusion. No pneumothorax. Heart/Mediastinum: Unremarkable. No cardiomegaly. Bones/joints: Dextroscoliosis. IMPRESSION: 1. Right PICC line tip over the atriocaval junction. 2. Borderline interstitial pattern suggesting pulmonary interstitial edema and/or interstitial pneumonia. Dictated and Authenticated by: Hemanth Sutton MD. Ordering:LACEY Francois MD
--- NOTE | 2018-03-01 15:24 | NUR.NOTE ---
blood cultures being drawn, MRSa swba sent Nursing Note:
[2018-03-01] MEDS: PIPERACILLIN/TAZO 2.25 GM in Normal Saline 50 ML IVPB ×2 (15:50→21:32)
[2018-03-01] MEDS: Normal Saline Flush 10 ML SYR IVP (16:43)
[2018-03-01] MEDS: Heparin 5,000 UNITS/ML VIAL 5000 UNITS SC (16:44)
[2018-03-01] MEDS: Normal Saline 500 ML IV (16:45)
[2018-03-01] MEDS: VANCOMYCIN 2,000 MG in Normal Saline 500 ML 250 MG IVPB (16:46)
[2018-03-01] MEDS: Insulin Aspart 300 UNITS/3 ML PEN SC (16:56)
--- NOTE | 2018-03-01 20:07 | WOUNDCARE ---
Wound Care Report 03/01/181829 Wound location on his coccyx has a raised area to the left side of coccyx. Wound measures 7 cm x 9 cm x a raised area of 1.2 cm which is painful to touch. Area is reddened with a purplish periphery which is blanchable. scattered small areas of partial thickness skin loss are noted. No drainage is noted. Pt reports that they are putting vinegar and water on it (at the [facility]). L lateral malleolus pressure area has intact eschar. Area measures 0.6 cm x 0.9 cm by less than 0.1 cm. periphery is slightly pink. No drainage is noted. R great toe lateral aspect has no drainage noted, dry skin around periphery. Eschar in place. Lateral 5th toe. Wound measures 1 cm x 0.8 cm x 0.1 cm wound bed pink, no drainage noted. R great toe 0.7 cm x 0.7 cm x 0.1 cm. I called the [facility] for current treatment orders for wounds and the orders appear to be coming for Dr. Ashford for the foot wounds so i would recommend offloading the feet and consulting Dr. Ashford for further treatment recommendations. I would also recommend consulting surgery for the underlying cause of the wound on the coccyx due to the raised nature of the wound. Dr. Canela was in the patients room at time of assessment.
--- NOTE | 2018-03-01 20:08 | HPE_ITS ---
Date of service: 03/01/18 Time of Service: 17:05 Assessment and Plan (1) Toxic metabolic encephalopathy: Current visit: No Status: Acute Resolved, likely in setting of impending sepsis/beginnings of acute (on chronic) adrenal insuffiency. Monitor mental status. Will need change of his cholecystostomy drain on this admission to ensure it's not contributing to repeated bouts of sepsis. (2) HCAP (healthcare-associated pneumonia): Current visit: Yes Status: Acute Continue vancomycin. Zosyn added. (3) Hyperglycemia: Current visit: Yes Status: Acute Already improved. As the patient's BG improved too well after just 10 units of SC aspart, I am actually decreasing his lantus tonight. Monitor BG's closely. Continue SSI, adjust accordingly. (4) MRSA bacteremia: Current visit: No Status: Resolved Continue vancomycin. PICC cultured. (5) Acute on chronic kidney failure: Current visit: No Status: Acute Hold lasix. Hydrate intravenously. Monitor I/O and daily weights. (6) Diabetic foot ulcer: Current visit: No Status: Chronic Continue wound care per outpatient instructions. (7) Poorly controlled type 2 diabetes mellitus with circulatory disorder: Current visit: No Status: Chronic As above (8) Adrenal insufficiency: Current visit: Yes Status: Acute Acute on chronic. S/p steroid burst yesterday. I feel like that may have been sufficient, but we will monitor the patient closely. For now, continue his outpatient dose of prednisone. If BG's, sodiums start to decrease or mentation worsens, would give stress dose hydrocortisone. (9) Dehydration: Current visit: No Status: Acute Hold lasix; IVF. (10) DVT prophylaxis: Current visit: No Status: Acute (11) Discharge planning issues: Current visit: No Status: Acute Remains full code. Will need cholecystostomy drain change on this admission History of Present Illness Chief Complaint: Sent to ED from SNF for lethargy Narrative: Mr Corley is a 57 year old male, well known to our service, with PMHx of recent MRSA bacteremia, w ho remains on IV vancomycin at the [facility], as well as chronic adrenal insufficiency due to chronic steroid therapy for RA and Crohn's disease s/p ileostomy, history cardiac arrest in setting of sepsis, cholecystitis s/p percutaneous IR cholecystostomy drain that has never been changed, who has been more lethargic and hyperglycemic at the [facility] for the last couple of days. The patient was given a stress dose of steroids yesterday at the [facility]. The patient reports feeling his usual self. He does complain of pain in his coccyx where he has a healing wound. In the ER, his BG was found to be 449, it was treated with 10 units of SC aspart and IV hydration with BG's improving to 199. As this patient's mental status changes are usually indicative of septic process setting in, Dr Horowitz and myself discussed the case and feel strongly that one of the portals of infection in this particular patient is his cholecystostomy drain, which has never been changed and should be. Arrangements were made with [facility] [place] change of the catheter in 1-2 days. Review of Systems Review of Systems 12 systems reviewed. Pertinent positives and negatives are as per HPI. [facility] Surgical History Arthroplasty of knee (Resolved 03/18/12) Fracture, Open Treatment (Resolved) Social History housing: long term Smoking/Tobacco Use Status: Never Meds Home Medications Medication Instructions Recorded Confirmed Type aspirin [Aspirin Low Dose] 81 mg PO BID 12/23/17 03/01/18 History carbamazepine 100 mg PO TID 12/23/17 03/01/18 History cyanocobalamin (vitamin B-12) 1,000 mcg PO DAILY 12/23/17 03/01/18 History folic acid 1 mg PO DAILY 12/23/17 03/01/18 History furosemide 40 mg PO DAILY 12/23/17 03/01/18 History loperamide 2 mg PO QID PRN 12/23/17 03/01/18 History omeprazole 20 mg PO DAILY 12/23/17 03/01/18 History risperidone 3 mg PO HS 12/23/17 03/01/18 History amlodipine 10 mg PO DAILY #0 tab 12/31/17 03/01/18 Rx clonidine HCl [Catapres] 0.3 mg PO TID #0 tab 12/31/17 03/01/18 Rx ferrous sulfate 325 mg PO BID #0 tab 12/31/17 03/01/18 Rx melatonin 9 mg PO DAILY@0000 #0 tab 12/31/17 03/01/18 Rx acetaminophen [Tylenol] 325 - 650 mg PO Q4H PRN PRN #0 tab 02/10/18 03/01/18 Rx gabapentin 300 mg PO TID #0 cap 02/10/18 03/01/18 Rx hydralazine 10 mg PO TID #0 tab 02/10/18 03/01/18 Rx hydroxyzine HCl 25 mg PO Q6H PRN PRN #0 tab 02/10/18 03/01/18 Rx magnesium chloride [Mag 64] 64 mg PO BID #0 tab 02/10/18 03/01/18 Rx prednisone 10 mg PO DAILY #28 tab 02/10/18 03/01/18 Rx terazosin 4 mg PO BID #0 cap 02/10/18 03/01/18 Rx Lantus Solostar U-100 Insulin 60 unit SUBCUT DAILY 03/01/18 03/01/18 History ascorbic acid (vitamin C) [Vitamin 1 tab PO BID 03/01/18 03/01/18 History C] ergocalciferol (vitamin D2) See Rx Instructions .ROUTE .COMPLEX 03/01/18 03/01/18 History [Vitamin D2] furosemide [Lasix] 40 mg PO DAILY 03/01/18 03/01/18 History insulin aspart U-100 [Novolog 0 units SUBCUT 0730,1130,1630 03/01/18 03/01/18 History Flexpen U-100 Insulin] levothyroxine 0.5 tab PO DAILY 03/01/18 03/01/18 History metoprolol tartrate 25 mg PO DAILY 03/01/18 03/01/18 History gvvtmzzsjksj-ozwu-dzrpm acid 1 tab PO DAILY 03/01/18 03/01/18 History [Centrum Complete] trazodone 50 mg PO HS 03/01/18 03/01/18 History vancomycin in 0.9 % sodium chl 1,000 mg IV Q48H 03/01/18 03/01/18 History venlafaxine 75 mg PO DAILY 03/01/18 03/01/18 History Allergies Allergy/AdvReac Type Severity Reaction Status Date / Time No Known Allergies Allergy Unverified 03/01/18 16:03 Exam Narrative Exam Narrative: General: Middle Aged male, at this point looks to be at about his baseline with mental status, remembers me, able to have a fluent conversation, jokes, no evidence of lethargy Neurological: A&Ox3, no focal deficits Psychiatric: appropriate speech pattern/content. At his baseline Skin: Coccyx wound with fluctuance underneath and small breaks in skin. LLE 1st and 5th digits appear to be clean, not infected. HEENT: EOMI, Dry MM Cardiovascular: RRR, no m/r/g appreciated Lungs: CTAB Gastrointestinal: abdomen soft; cholecystostomy drain with crusty exit site, no obvious drainage or erythema; ileostomy site clean, dry, intact Genitourinary: deferred Extremities: no edema, clubbing, or cyanosis of BLE's; skin exam as above. 1+ pedal pulses bilaterally. Results Imaging Additional studies: CXR: 1. Right PICC line tip over the atriocaval junction. 2. Borderline interstitial pattern suggesting pulmonary interstitial edema and/or interstitial pneumonia. Labs : 03/01/18 09:38 03/01/18 13:07 Laboratory Results - last 24 hr 03/01/18 03/01/18 03/01/18 09:38 09:38 09:38 WBC 12.36 H RBC 4.35 L Hgb 10.1 L Hct 31.8 L MCV 73.1 L MCH 23.2 L MCHC 31.8 L RDW 20.4 H Plt Count 433 H MPV 9.7 Immature Gran % 1.9 Neutrophils % 81.4 Lymphocytes % 8.3 Monocytes % 6.5 Eosinophils % 1.5 Basophils % 0.4 Absolute Neutrophils 10.06 H Absolute Lymphocytes 1.03 L Absolute Monocytes 0.80 H Absolute Eosinophils 0.19 Absolute Basophils 0.05 Differential Comment Rbc morph reviewed RBC Morphology See below Microcytosis 2+ Tear Drop Cells 2+ Ovalocytes 2+ Sodium 136 Potassium 4.4 Chloride 103 Carbon Dioxide 21.3 Anion Gap 11.7 H BUN 60 H Creatinine 2.99 H Estimated GFR/1.73 m2 21.68 Glucose 449 H Lactate Calcium 9.2 Magnesium 1.9 Total Bilirubin 0.2 0.2 Conjugated Bilirubin 0.08 AST 6 L 3 L ALT 14 13 Alkaline Phosphatase 278 H 273 H Total Protein 7.0 7.1 Albumin 2.4 L 2.3 L Urine Color Urine Clarity Urine pH Ur Specific [place] Urine Protein Urine Ketones Urine Blood Urine Nitrite Urine Bilirubin Urine Urobilinogen Ur Leukocyte Esterase Urine RBC Urine WBC Ur Epithelial Cells Urine Crystals Urine Bacteria Urine Casts Urine Mucus Urine Other Ur Culture Indicated? Urine Glucose 03/01/18 03/01/18 03/01/18 09:38 09:38 13:07 WBC RBC Hgb Hct MCV MCH MCHC RDW Plt Count MPV Immature Gran % Neutrophils % Lymphocytes % Monocytes % Eosinophils % Basophils % Absolute Neutrophils Absolute Lymphocytes Absolute Monocytes Absolute Eosinophils Absolute Basophils Differential Comment RBC Morphology Microcytosis Tear Drop Cells Ovalocytes Sodium Potassium Chloride Carbon Dioxide Anion Gap BUN Creatinine Estimated GFR/1.73 m2 Glucose 199 H D Lactate 1.9 H Calcium Magnesium Total Bilirubin Conjugated Bilirubin AST ALT Alkaline Phosphatase Total Protein Albumin Urine Color Yellow Urine Clarity Sl cloudy Urine pH 6.0 Ur Specific [place] 1.015 Urine Protein 100 H Urine Ketones Negative Urine Blood Trace-lysed H Urine Nitrite Negative Urine Bilirubin Negative Urine Urobilinogen 0.2 Ur Leukocyte Esterase Small H Urine RBC Negative Urine WBC 20-50 Ur Epithelial Cells Negative Urine Crystals Negative Urine Bacteria Moderate Urine Casts Negative Urine Mucus Negative Urine Other Moderate yeast Ur Culture Indicated? Yes Urine Glucose 500 H Last Vital Signs Temp 36.6 C 03/01/18 17:04 Pulse 68 03/01/18 17:04 Resp 20 03/01/18 17:04 BP 160/78 H 03/01/18 17:04 Pulse Ox 98 03/01/18 17:04
[2018-03-01] MEDS: Normal Saline 1,000 ML 150 ML IV (20:41)
[2018-03-01] MEDS: Acetaminophen 325 MG TAB PO (20:45)
[2018-03-01] MEDS: risperiDONE 1 MG TAB 3 MG PO (21:37)
[2018-03-01] MEDS: traZODone 50 MG TAB PO (21:37)
[2018-03-01] MEDS: predniSONE 10 MG TAB PO (21:37)
[2018-03-01] MEDS: Insulin Glargine 300 UNITS/3 ML PEN 40 UNITS SC (22:53)
[2018-03-02] MEDS: Melatonin 3 MG TAB 9 MG PO
[2018-03-02] MEDS: hydrOXYzine HCL 25 MG TAB PO (00:16)
--- NOTE | 2018-03-02 01:35 | NUR.NOTE ---
Nursing Note: This RN has asked the patient to reposition off from his back. The patient keeps refusing stating he is unable to lie on his side because his arms hurt. Patient has been on his back since admission
[2018-03-02] MEDS: Normal Saline 1,000 ML 150 ML IV ×2 (03:46→10:19)
[2018-03-02 04:00] VITALS: BP 163/80; PULSE 78; RESP 20; TEMP 37.1; O2SAT 97
[2018-03-02] MEDS: PIPERACILLIN/TAZO 2.25 GM in Normal Saline 50 ML IVPB ×4 (04:08→21:39)
[2018-03-02] MEDS: Levothyroxine 75 MCG TAB 37.5 MCG PO (05:44)
[2018-03-02 07:09] LABS: Lactate-non-spesis 1.1 mmol/L (0.6-1.4)
[2018-03-02 07:17] LABS: Abs Immature Grans 0.13 k/cumm (0.0-0.09); Absolute Basophil Count 0.04 k/cumm (0.0-0.2); Basophils % 0.3; Eosinophils % 3.8; HCT 30.5 % (40.0-50.0); HGB 9.6 g/dL (13.5-17.5); Lymphocytes % 7.4; Mean Corp. HGB Concentration 31.5 g/dL (32.0-36.0); Mean Corpuscular Hemoglobin 23.1 pg (27.0-33.0); Mean Corpuscular Volume 73.3 fL (80-95); Mean Platelet Volume 9.1 fL (8.0-11.0); Monocytes % 4.5; Platelet Count 420 x1000/uL (130-400); RBC 4.16 m/cumm (4.50-6.00); RBC Distribution Width 20.6 % (11.8-14.1); White Blood Cell Count 13.03 k/cumm (4.4-10.8)
[2018-03-02 07:20] LABS: Absolute Lymphocyte Count 0.96 k/cumm (1.2-3.4); Absolute Monocyte Count 0.59 k/cumm (0.11-0.7); Absolute Neutrophil Count 10.81 k/cumm (1.2-6.7)
[2018-03-02 07:38] LABS: Anion Gap 12.9 mmol/L (3-11); BUN 52 mg/dL (7-18); CO2 20.1 mmol/L (21.0-32.0); CREATININE 2.64 mg/dL (0.70-1.30); Calcium 8.7 mg/dL (8.5-10.1); Chloride 107 mmol/L (98-107); Estimated GFR 25.03 (mL/min/1.73m2); Glucose 265 mg/dL (70-100); Magnesium 1.6 mg/dL (1.8-2.4); Potassium 4.2 mmol/L (3.5-5.1); Sodium 140 mmol/L (136-145); TSH (W/Ref FT4) 0.61 uIU/mL (0.358-3.74)
[2018-03-02 07:45] VITALS: BP 156/76; PULSE 74; RESP 22; TEMP 37.1; O2SAT 94
[2018-03-02 07:52] LABS: Anisocytosis 3+; Diff Comment RBC Morph Reviewed; Hypochromasia 3+; Microcytosis 3+; Ovalocytes 2+; Poikilocytes 2+; Polychromasia Present
[2018-03-02] MEDS: Normal Saline Flush 10 ML SYR IVP ×2 (09:06→21:39)
[2018-03-02] MEDS: Insulin Aspart 300 UNITS/3 ML PEN SC ×4 (09:07→21:23)
[2018-03-02] MEDS: Omeprazole 20 MG CAPCR PO (09:08)
[2018-03-02] MEDS: hydrALAZINE 10 MG TAB PO ×3 (09:08→21:10)
[2018-03-02] MEDS: Venlafaxine 75 MG TAB PO (09:08)
[2018-03-02] MEDS: Ascorbic Acid 500 MG TAB PO ×2 (09:08→21:10)
[2018-03-02] MEDS: predniSONE 10 MG TAB PO (09:09)
[2018-03-02] MEDS: Magnesium Chloride 64 MG TABCR PO ×2 (09:09→21:11)
[2018-03-02] MEDS: Multivitamin TAB 1 TAB PO (09:09)
[2018-03-02] MEDS: amLODIPine 5 MG TAB 10 MG PO (09:09)
[2018-03-02] MEDS: Metoprolol 25 MG TAB PO (09:09)
[2018-03-02] MEDS: Terazosin 2 MG CAP 4 MG PO ×2 (09:09→21:10)
[2018-03-02] MEDS: Aspirin E.C. 81 MG TABEC PO ×2 (09:10→21:10)
[2018-03-02] MEDS: carBAMazepine 100 MG CHEW PO ×3 (09:10→21:11)
[2018-03-02] MEDS: Gabapentin 300 MG CAP PO ×3 (09:10→21:11)
[2018-03-02] MEDS: Folic Acid 1 MG TAB PO (09:10)
[2018-03-02] MEDS: Ferrous Sulfate 325 MG TAB PO ×2 (09:10→21:11)
[2018-03-02] MEDS: Cyanocobalamin 500 MCG TAB 1000 MCG PO (09:10)
[2018-03-02] MEDS: cloNIDine 0.1 MG TAB 0.3 MG PO ×3 (09:10→21:10)
--- NOTE | 2018-03-02 09:17 | PDOC.CMIN ---
Care Management Initial Assess REASON FOR HOSPITALIZATION:: Hyperglycemia, encephalopathy, suspected sepsis, pneumonia PAST MEDICAL HISTORY/PAST SURGICAL HISTORY:: CHF, Anemia, Anxiety, Back Pain, Bipolar Disorder, CAD, Cardiopulmonary arrest with successful resuscitation, cholelithiasis, anxiety, insomnia, chronic pain, CKD, Crohn's Disease, DM type 2 with diabetic neuropathy, diabetic foot ulcer, dyslipidemia, heme positive stool, hemorrhagic cystitis, hypertension, hypoandrogenism, hypothyroidism, impaired mobility and ADLs, Obesity, Pedal edema, Osteoarthritis of both knees, poor self care, poorly controlled DM2 with circulatory disorder, RA, TKA, Fracture ORIF R distal humerus fracture. PREVIOUS FUNCTIONAL STATUS/SOCIAL/FAMILY SUPPORTS:: Brendan is a jail resident at the [facility] in [place] and requires assistance with all ADLs. Brendan has a sister, Lian Hardy (P#[phone]) who lives in [facility] and though they have limited contact via phone every couple of weeks-she is his only identified family support. Brendan enjoys reading and watching TV. CURRENT FUNCTIONAL STATUS:: Brendan is sleeping soundly when CM attempts to meet with him. Per PT, he was not cooperative during his session this morning and was yelling at the staff, CM allowed Brendan to rest. ADVANCE DIRECTIVES:: [facility] on file. Has patient been provided with information about the portal?: Yes Did the patient sign up for the portal?: No CODE STATUS:: Full Code INSURANCE COVERAGE / FINANCIAL ISSUES:: Medicaid. Medicare CURRENT HOME/COMMUNITY SERVICES/EQUIPMENT:: Brendan is a resident at the [facility]-the facility manages his service and equipment needs. PRIMARY CARE PHYSICIAN:: Anne Horowitz DO: City Supervisor at the [facility] POTENTIAL DISCHARGE NEEDS:: Coordinated return to [facility]. CM spoke with Isela of the [facility] who requested updates when available. PATIENT/FAMILY EDUCATION NEEDS:: Review of instructions. ANTICIPATED BARRIERS TO DISCHARGE:: IV ABX course-dependent on duration and frequency-patient re-admitted with recurrent sepsis TRANSPORTATION:: W/C van PLAN:: Brendan may transfer to [facility] [place] [place] for T-tube evaluation and potential replacement. Undetermined if he will transfer at this time or have down and back appointment. CM will continue to monitor clinical progress and support discharge planning considerations.
--- NOTE | 2018-03-02 09:44 | INITIAL_ITS ---
Care Management Initial Assess REASON FOR HOSPITALIZATION:: Hyperglycemia, encephalopathy, suspected sepsis, pneumonia PAST MEDICAL HISTORY/PAST SURGICAL HISTORY:: CHF, Anemia, Anxiety, Back Pain, Bipolar Disorder, CAD, Cardiopulmonary arrest with successful resuscitation, cholelithiasis, anxiety, insomnia, chronic pain, CKD, Crohn's Disease, DM type 2 with diabetic neuropathy, diabetic foot ulcer, dyslipidemia, heme positive stool, hemorrhagic cystitis, hypertension, hypoandrogenism, hypothyroidism, impaired mobility and ADLs, Obesity, Pedal edema, Osteoarthritis of both knees, poor self care, poorly controlled DM2 with circulatory disorder, RA, TKA, Fracture ORIF R distal humerus fracture. PREVIOUS FUNCTIONAL STATUS/SOCIAL/FAMILY SUPPORTS:: Brendan is a jail resident at the [facility] in [place] and requires assistance with all ADLs. Brendan has a sister, Lian Hardy (P#[phone]) who lives in [facility] and though they have limited contact via phone every couple of weeks-she is his only identified family support. Brendan enjoys reading and watch[employer]ooBox TV. CURRENT FUNCTIONAL STATUS:: Brendan is sleeping soundly when CM attempts to meet with him. Per PT, he was not cooperative during his session this morning and was yelling at the staff, CM allowed Brendan to rest. ADVANCE DIRECTIVES:: [facility] on file. Has patient been provided with information about the portal?: Yes Did the patient sign up for the portal?: No CODE STATUS:: Full Code INSURANCE COVERAGE / FINANCIAL ISSUES:: Medicaid. Medicare CURRENT HOME/COMMUNITY SERVICES/EQUIPMENT:: Brendan is a resident at the [facility]-the facility manages his service and equipment needs. PRIMARY CARE PHYSICIAN:: Anne Horowitz DO: [employer] Supervisor at the [facility] POTENTIAL DISCHARGE NEEDS:: Coordinated return to [facility]. CM spoke with Isela of the [facility] who requested updates when available. PATIENT/FAMILY EDUCATION NEEDS:: Review of instructions. ANTICIPATED BARRIERS TO DISCHARGE:: IV ABX course-dependent on duration and frequency-patient re-admitted with recurrent sepsis TRANSPORTATION:: W/C van PLAN:: Brendan [place] [facility] [place] and potential replacement. Undetermined if he will transfer at this time or have down and back appointment. CM will continue to monitor clinical progress and support discharge planning considerations.
--- NOTE | 2018-03-02 10:40 | PT.INNT ---
Date of service: 03/02/18 Time of Service: 10:41 PT Notes PHYSICAL THERAPY NOTE 03/02/18 PT Consult received, chart reviewed. Attempted to see patient for PT consult, pt working with OT this morning and noncooperative (see OT notes), pt sleeping later in morning. Will continue attempts. Yolanda Chang PT
--- NOTE | 2018-03-02 11:23 | OT.INIE ---
Occupational Therapy Notes Inpatient Occupational Therapy Evaluation Date: 03/02/18 Referring Doctor:Priscila Canela MD OT Orders: Eval and Treat Precautions: Contact Precautions, Fall Precautions PATIENT PROFILE/ADMITTING DIAGNOSIS: Pt is a 57 year old male who was admitted through the ER on 03/01/18 due to his diabetes, being lathargic and hyperglycemic. Pt was previously admitted to [facility] in January 2018. Pt reports that he is so mad that they brought him to the ER as he just needed to sleep and he would have been better, but they are idiots. Past Medical History: Diabetic neuropathy, diabetic foot ulcers, rheumatoid arthritis, osteoarthritis bilateral knees, sacral decubitus ulcer, chronic renal insufficiency, coronary artery disease, crohn's disease, s/p colectomy, anemia, urinary tract infection, dyslipidemia, hypoandrogenism, cholelithiasis, hypertension, bipolar Disorder, chronic back pain, lower extremity edema, obesity, diabetes mellitus, MRSA blood and urine. Current Functional Limitations: Decreased functional activity tolerance, decreased (I) in ADLs/IADLs. Pt reports that he is not currently at his baseline for ADLs. Social History/Home Situation: Pt resides at [facility]. He is currently total (A) for ADLs but this has recently decline since November 2017. He reports that in November he was able to wash his own face (I), and help with ADL routines with moderate (A) throughout. He has occupational therapy at [facility]. Equipment owned/DME: [facility] SUBJECTIVE: Pt was lying in bed when OT arrived. He was agreeable to OT session. As OT session went on pt was not receptive to any education or training. He was not pleasant when answering questions and demanded that services be performed when he wanted them to be performed. OBJECTIVE: General Observation: Telemetry, IV (R) UE, pt was not very pleasant when answering questions. Mental Status: A&O to name and location Pain: no c/o pain ROM: RUE Shoulder flexion, elbow flexion unable to perform. L UE Shoulder flexion ~50*, elbow flexion WNL STRENGTH: RUE Unable to test shoulder flexion, elbow 3/5 online affiliate marketing manager 3/5 LUE Unable to test shoulder flexion, elbow 3/5, online affiliate marketing manager 3/5 BALANCE: Static sitting Good Dynamic Sitting Pt denies performing SPECIAL TESTS: Daily Activity Limitations Standardized Measure [facility] AM -PAC ?6 clicks? Daily Activity Inpatient Short Form: Raw score: 14 Standardized score: 33.39 CMS score: 59.67% CMS modifier: CK INFORMED CONSENT/EDUCATION: Pt instructed in purpose of OT Consult and plan of care. ASSESSMENT: Patient is a 57-year-old male referred to occupational therapy services with diagnosis of lathargic and hyperglycemic after being admitted through the ER on 03/01/18 due tyo his diabetes in setting of Diabetic neuropathy, diabetic foot ulcers, rheumatoid arthritis, osteoarthritis bilateral knees, sacral decubitus ulcer, chronic renal insufficiency, coronary artery disease, crohn's disease, s/p colectomy, anemia, urinary tract infection, dyslipidemia, hypoandrogenism, cholelithiasis, hypertension, bipolar Disorder, chronic back pain, lower extremity edema, obesity, diabetes mellitus, MRSA blood and urine. Patient presents with clinical signs and symptoms consistent with dx and decreased (I) in ADLs/IADLs, as demonstrated by the following impairment level findings: 1. Decreased (B) UE AROM 2. Decreased (B) UE strengthening 3. Decreased functional activity tolerance Impairments are contributing to the following functional limitations: 1. Decreased (I) in ADLs/IADLs 2. Decreased gross and fine motor skills for (B) UE 3. Decreased ability to perform functional mobility required for ADLs AMPAC score 14, CMS score 59.67%. OT recommends that pt return to [facility] when medically cleared per MD. Patient is assessed as a Moderate 67282 complexity based on the following: History: See Above Examination: See Above Presentation: Evolving Decision Making: AMPAC score 14, CMS score 59.67% GOALS Goals x1 week in hospital setting 1. Dressing- Pt will be able to don hospital gown with min (A) and min vc 2. Bathing- Pt will be able to (I) wash face, (B) UE and abdomen with min vc 3. Eating- Pt will be able to perform eating routine with min (A) for opening packages and (I) translation from plate to mouth PLAN OF CARE/TREATMENT PLAN: 1x/day, 5 days/ week x 1week Initiate Occupational Therapy Services for bathing, dressing, grooming, toileting, eating, transfer training. DISCHARGE RECOMMENDATIONS Return to the [facility] when medically cleared per MD. TREATMENT TIME/MINUTES/CODES 20 min IE G Codes in the area of self- : washing oneself, toileting, dressing, eating and drinking, current status GO [id number] CK projected status GO [id number]. Discharge status (if discharging) GO [id number], Based on AMPAC score 14, CMS score 59.67% Suzanne Javier OTR/L
[2018-03-02 12:05] VITALS: BP 127/66; PULSE 57; RESP 22; TEMP 36.7; O2SAT 97
[2018-03-02] MEDS: MAGNESIUM SULFATE 2 GM/50 ML BAG IVPB (12:24)
--- NOTE | 2018-03-02 13:07 | PT.INNT ---
Date of service: 03/02/18 Time of Service: 13:07 PT Notes PHYSICAL THERAPY NOTE 03/02/18 3rd attempt to see patient for therapy session, pt lying in bed, shakes his head no to participating in PT consult. Yolanda Chang PT
[2018-03-02] MEDS: Heparin 5,000 UNITS/ML VIAL 5000 UNITS SC ×2 (16:11)
[2018-03-02 16:39] VITALS: BP 134/69; PULSE 55; RESP 17; TEMP 36; O2SAT 96
[2018-03-02] MEDS: VANCOMYCIN 1,000 MG in Normal Saline 250 ML 250 MG IV (16:54)
--- NOTE | 2018-03-02 20:57 | W.PM.PROGNOT ---
Date of Service Date of service: 03/02/18 Time of Service: 17:35 Assessment and Plan (1) Toxic metabolic encephalopathy: Current visit: No Status: Resolved Resolved, likely in setting of impending sepsis/beginnings of acute (on chronic) adrenal insuffiency. Will need change of his cholecystostomy drain on this admission to ensure it's not contributing to repeated bouts of sepsis, which for this patient usually involves altered mental status. (2) HCAP (healthcare-associated pneumonia): Current visit: No Status: Acute Continue vancomycin and zosyn. Blood cx x 2 with NGTD (3) Hyperglycemia: Current visit: No Status: Acute Continue basal bolus insulin (4) MRSA bacteremia: Current visit: No Status: Resolved Continue vancomycin. from prior admission. Blood cultures negative on this admission so far (5) Acute on chronic kidney failure: Current visit: No Status: Acute D/C IVF. Resume lasix (6) Diabetic foot ulcer: Current visit: No Status: Chronic Continue wound care per outpatient instructions. Consider repeating podiatry consult (7) Poorly controlled type 2 diabetes mellitus with circulatory disorder: Current visit: No Status: Chronic As above (8) Adrenal insufficiency: Current visit: No Status: Acute Acute on chronic. S/p steroid burst yesterday. I feel like that may have been sufficient, but we will monitor the patient closely. For now, continue his outpatient dose of prednisone. If BG's, sodiums start to decrease or mentation worsens, would give stress dose hydrocortisone. (9) Dehydration: Current visit: No Status: Resolved D/c IVF - resume lasix (10) DVT prophylaxis: Current visit: No Status: Acute SQ heparin (11) Discharge planning issues: Current visit: No Status: Acute Remains full code. Will need cholecystostomy drain change on this admission Subjective Interval history since last seen: States he is feeling better today than yesterday. Denies dizziness, chest pain, shortness of breath, nausea, vomiting. IR at [facility] to change cholecystostomy drain on 03/05/18 - appointment at 8:30 am. Exam Narrative Exam Narrative: General: Middle Aged male, at his baseline with mental status, A&Ox3 HEENT: EOMI, Dry MM Cardiovascular: RRR, no m/r/g Lungs: CTAB Gastrointestinal: abdomen soft; cholecystostomy drain with crusty exit site, no obvious drainage or erythema; ileostomy site clean, dry, intact Extremities: trace edema of BLE's, no clubbing, or cyanosis of BLE's; 1+ pedal pulses bilaterally. Objective Objective Clinical Data: Abnormal lab results 03/02/18 03/02/18 Range/Units 07:00 07:00 WBC 13.03 H (4.4-10.8) k/cumm RBC 4.16 L (4.50-6.00) m/cumm Hgb 9.6 L (13.5-17.5) g/dL Hct 30.5 L (40.0-50.0) % MCV 73.3 L (80-95) fL MCH 23.1 L (27.0-33.0) pg MCHC 31.5 L (32.0-36.0) g/dL RDW 20.6 H (11.8-14.1) % Plt Count 420 H (130-400) x1000/uL Absolute Neutrophils 10.81 H (1.2-6.7) k/cumm Absolute Lymphocytes 0.96 L (1.2-3.4) k/cumm Carbon Dioxide 20.1 L (21.0-32.0) mmol/L Anion Gap 12.9 H (3-11) mmol/L BUN 52 H (7-18) mg/dL Creatinine 2.64 H (0.70-1.30) mg/dL Glucose 265 H (70-100) mg/dL Magnesium 1.6 L (1.8-2.4) mg/dL Vital Signs Temperature 36.0 C L 03/02/18 16:39 Temperature Source Tympanic 03/02/18 16:39 Pulse 55 L 03/02/18 16:39 Pulse Rhythm Regular 03/02/18 09:10 Pulse 66 03/01/18 10:10 Respiratory Rate 17 03/02/18 16:39 Respiratory Effort Non-Labored 03/02/18 09:10 Respiratory Depth Normal 03/02/18 09:10 Respiratory Pattern Normal 03/02/18 09:10 Blood Pressure 134/69 03/02/18 16:39 Blood Pressure Mean 86 03/01/18 10:01 Blood Pressure Position Supine 03/01/18 09:11 Pulse Oximetry 96 03/02/18 16:39 Oxygen Delivery Method Room Air 03/02/18 16:39 Oxygen Flow Rate 0 03/02/18 16:39 Pain Level 0 03/02/18 07:45 Intake & Output 03/01/18 03/02/18 03/02/18 23:59 11:59 23:59 Intake Total 2526.5 / 2526.5 1987.5 / 3380.0 1392.5 / 3380.0 Output Total 525 / 525 2000 / 3350 1350 / 3350 Balance 2001.5 / 2001.5 -12.5 / 30.0 42.5 / 30.0 Weight 100.045 kg 100.8 kg Intake: IV 2276.5 / 2276.5 1867.5 / 2820.0 952.5 / 2820.0 Oral 120 / 360 240 / 360 Injectate 250 / 250 200 / 200 Right Upper Abdomen 250 / 250 200 / 200 Output: Drainage 700 / 700 Right Upper Abdomen 700 / 700 Urine 375 / 375 800 / 1650 850 / 1650 Stool 150 / 150 500 / 1000 500 / 1000 Other: Urine Color Yellow Yellow Yellow Urine Appearance Clear Clear Clear Urine Odor Normal Voiding Methods Urinal Urinal Urinal Laboratory Results WBC 13.03 k/cumm (4.4-10.8) H 03/02/18 07:00 RBC 4.16 m/cumm (4.50-6.00) L 03/02/18 07:00 Hgb 9.6 g/dL (13.5-17.5) L 03/02/18 07:00 Hct 30.5 % (40.0-50.0) L 03/02/18 07:00 MCV 73.3 fL (80-95) L 03/02/18 07:00 MCH 23.1 pg (27.0-33.0) L 03/02/18 07:00 MCHC 31.5 g/dL (32.0-36.0) L 03/02/18 07:00 RDW 20.6 % (11.8-14.1) H 03/02/18 07:00 Plt Count 420 x1000/uL (130-400) H 03/02/18 07:00 MPV 9.1 fL (8.0-11.0) 03/02/18 07:00 Immature Gran % 1.0 03/02/18 07:00 Neutrophils % 83.0 03/02/18 07:00 Lymphocytes % 7.4 03/02/18 07:00 Monocytes % 4.5 03/02/18 07:00 Eosinophils % 3.8 03/02/18 07:00 Basophils % 0.3 03/02/18 07:00 Absolute Neutrophils 10.81 k/cumm (1.2-6.7) H 03/02/18 07:00 Absolute Lymphocytes 0.96 k/cumm (1.2-3.4) L 03/02/18 07:00 Absolute Monocytes 0.59 k/cumm (0.11-0.7) 03/02/18 07:00 Absolute Eosinophils 0.50 k/cumm (0.0-0.7) 03/02/18 07:00 Absolute Basophils 0.04 k/cumm (0.0-0.2) 03/02/18 07:00 Differential Comment Rbc morph reviewed 03/02/18 07:00 RBC Morphology See below 03/02/18 07:00 Polychromasia Present 03/02/18 07:00 Hypochromasia 3+ 03/02/18 07:00 Poikilocytosis 2+ 03/02/18 07:00 Anisocytosis 3+ 03/02/18 07:00 Microcytosis 3+ 03/02/18 07:00 Tear Drop Cells 2+ 03/01/18 09:38 Ovalocytes 2+ 03/02/18 07:00 Sodium 140 mmol/L (136-145) 03/02/18 07:00 Potassium 4.2 mmol/L (3.5-5.1) 03/02/18 07:00 Chloride 107 mmol/L (98-107) 03/02/18 07:00 Carbon Dioxide 20.1 mmol/L (21.0-32.0) L 03/02/18 07:00 Anion Gap 12.9 mmol/L (3-11) H 03/02/18 07:00 BUN 52 mg/dL (7-18) H 03/02/18 07:00 Creatinine 2.64 mg/dL (0.70-1.30) H 03/02/18 07:00 Estimated GFR/1.73 m2 25.03 (mL/min/1.73m2) 03/02/18 07:00 Glucose 265 mg/dL (70-100) H 03/02/18 07:00 Lactate 1.1 mmol/L (0.6-1.4) 03/02/18 07:00 Calcium 8.7 mg/dL (8.5-10.1) 03/02/18 07:00 Magnesium 1.6 mg/dL (1.8-2.4) L 03/02/18 07:00 Total Bilirubin 0.2 mg/dL (0.2-1.0) 03/01/18 09:38 Conjugated Bilirubin 0.08 mg/dL (0.00-0.20) 03/01/18 09:38 AST 3 U/L (15-37) L 03/01/18 09:38 ALT 13 U/L (12-78) 03/01/18 09:38 Alkaline Phosphatase 273 U/L (46-116) H 03/01/18 09:38 Total Protein 7.1 g/dL (6.4-8.2) 03/01/18 09:38 Albumin 2.3 g/dL (3.4-5.0) L 03/01/18 09:38 TSH 0.61 uIU/mL (0.358-3.74) 03/02/18 07:00 Urine Color Yellow (Yellow) 03/01/18 09:38 Urine Clarity Sl cloudy 03/01/18 09:38 Urine pH 6.0 (5-8) 03/01/18 09:38 Ur Specific [place] 1.015 (1.005-1.025) 03/01/18 09:38 Urine Protein 100 mg/dL (Negative) H 03/01/18 09:38 Urine Ketones Negative mg/dL (Negative) 03/01/18 09:38 Urine Blood Trace-lysed (Negative) H 03/01/18 09:38 Urine Nitrite Negative (Negative) 03/01/18 09:38 Urine Bilirubin Negative (Negative) 03/01/18 09:38 Urine Urobilinogen 0.2 EU/dL (Up TO 0.2) 03/01/18 09:38 Ur Leukocyte Esterase Small (Negative) H 03/01/18 09:38 Urine RBC Negative (0-2) 03/01/18 09:38 Urine WBC 20-50 HPF (0-5) 03/01/18 09:38 Ur Epithelial Cells Negative HPF (Negative) 01/06/19 09:38 Urine Crystals Negative HPF (Negative) 03/01/18 09:38 Urine Bacteria Moderate HPF (Negative) 03/01/18 09:38 Urine Casts Negative LPF (Negative) 03/01/18 09:38 Urine Mucus Negative (Negative) 03/01/18 09:38 Urine Other Moderate yeast (Negative) 03/01/18 09:38 Ur Culture Indicated? Yes 03/01/18 09:38 Urine Glucose 500 mg/dL (Negative) H 03/01/18 09:38
[2018-03-02] MEDS: risperiDONE 1 MG TAB 3 MG PO (21:10)
[2018-03-02] MEDS: traZODone 50 MG TAB PO (21:10)
[2018-03-02] MEDS: Insulin Glargine 300 UNITS/3 ML PEN 60 UNITS SC (21:25)
[2018-03-02 21:39] VITALS: BP 155/78; PULSE 65; RESP 20; TEMP 36.3; O2SAT 97
[2018-03-03] VITALS (9 sets, daily range): BP systolic 100–150; BP diastolic 52–77; PULSE 48–73; RESP 16–20; TEMP 36.1–37.1; O2SAT 95–99
[2018-03-03] MEDS: Heparin 5,000 UNITS/ML VIAL 5000 UNITS SC ×3 (00:02→16:25)
[2018-03-03] MEDS: PIPERACILLIN/TAZO 2.25 GM in Normal Saline 50 ML IVPB ×4 (03:49→22:11)
[2018-03-03] MEDS: Levothyroxine 75 MCG TAB 37.5 MCG PO (06:09)
[2018-03-03 07:26] LABS: Abs Immature Grans 0.08 k/cumm (0.0-0.09); Absolute Basophil Count 0.03 k/cumm (0.0-0.2); Absolute Eosinophil Count 0.93 k/cumm (0.0-0.7); Absolute Monocyte Count 0.58 k/cumm (0.11-0.7); Basophils % 0.3; Eosinophils % 8.6; HCT 29.9 % (40.0-50.0); HGB 9.3 g/dL (13.5-17.5); Immature Grans % 0.7; Lymphocytes % 7.4; Mean Corp. HGB Concentration 31.1 g/dL (32.0-36.0); Mean Corpuscular Hemoglobin 23.2 pg (27.0-33.0); Mean Corpuscular Volume 74.6 fL (80-95); Monocytes % 5.4; Neutrophils % 77.6; Platelet Count 414 x1000/uL (130-400); RBC 4.01 m/cumm (4.50-6.00); RBC Distribution Width 20.7 % (11.8-14.1); White Blood Cell Count 10.82 k/cumm (4.4-10.8)
[2018-03-03 07:50] LABS: Anion Gap 10.7 mmol/L (3-11); BUN 44 mg/dL (7-18); CO2 20.3 mmol/L (21.0-32.0); CREATININE 2.56 mg/dL (0.70-1.30); Calcium 8.4 mg/dL (8.5-10.1); Chloride 109 mmol/L (98-107); Estimated GFR 25.94 (mL/min/1.73m2); Glucose 238 mg/dL (70-100); Magnesium 2.2 mg/dL (1.8-2.4); Potassium 4.3 mmol/L (3.5-5.1); Sodium 140 mmol/L (136-145)
--- NOTE | 2018-03-03 09:26 | PHARADMIT ---
Addendum entered by Rosa Beltran 03/23/18 17:37: Pharmacy Note Subjective Objective BP-150/65 HR-56 other VS okay WBC-14.97(up slightly) SCr-2.17(down slightly) FSBG-353 Assessment no med changes so far today Plan back to the [facility] when available, watch for start of slow prednisone taper Original Note: Addendum entered by Giudo Medina III 03/20/18 15:43: Pharmacy Note Subjective Prednisone 20mg daily started today. Had visit today to review wwound. Objective VS-OK SCr-2.68 K+5.0 WBC-13.95 Assessment KXL8 given to reduce K+ Plan Did not order Vancomycin trough as his last dose is due tomorrow. Back to [facility] on Friday. Original Note: Addendum entered by Guido Medina III 03/19/18 16:04: Pharmacy Note Subjective MD notes that acute on chronic Adrenal insufficiency was precipitated by missed doses of Prednisone. MD will do an extremely slow steroid taper. Objective VS-OK SCr-2.30 (up) Wgt-101.1 kg WBC-12.30 Lytes-OK Assessment Vancomycin trough (29.4)m evaluated, dose change to 1gm q32 hrs. Ertepenem continue till 03/21 Plan MD notes that IV ABX archie complete on Friday, but patient archie be discharged back to [facility] on Friday. Original Note: Addendum entered by Isaura Cifuentes 03/18/18 16:19: Pharmacy Note Subjective end date for antibiotics is 03/21/18 per MD note Objective vs ok, wt down, Scr stable, FS 208, Assessment solu-cortef continues, vancomycin, ertapenem continue Plan vancomycin trough @ 2100 today Original Note: Addendum entered by Rosa Beltran 03/17/18 16:40: Pharmacy Note Subjective improving per morning report Objective BP-159/86 other VS okay weight-104.3(down) SCr-2.09(improving) h/h-improving FSBG-282 Assessment vanco and ertapenem continue; day 9 ertapenem (was on zosyn prior to ertapenem) and has been on vanco since early January Plan continue to watch VS, labs and for med changes order vanco trough for tomorrow evening Original Note: Addendum entered by Guido Medina III 03/13/18 16:20: Patient was discharged, then un-discharged, awaiting [facility] to find a bed. To remain on Ertepenem & Vancomycin at [facility]. Original Note: Addendum entered by Rosa Beltran 03/10/18 16:34: Pharmacy Note Subjective drain was not changed at [facility] the other day- see progress note for more info Objective BP-147/76 weight-105.1(up) WBC-13.09(up) BG-145 Assessment vanco continues- has been on since early January; vanco trough was high yesterday so vanco held for 22 hours and restarted at 750 Q24H today ertapenem started yesterday (day2) was on zosyn prior (03/01-03/09) MRSA growing from broth of one of surgical samples; blood cultures had no growth @120 hours Plan MD plans on talking to ID. Mention of possibly swinging the pt here for 6 weeks of abx and possible changing vanco to Q12H, however if we were to change current daily dosing to Q12H dosing the estimated peak would be very low or the estimated trough would be over 20 to get an estimate peak near 30. Original Note: Addendum entered by Guido Medina III 03/05/18 17:18: Pharmacy Note Subjective Patient went to [facility] this morning for cholecystomy drain change. Missed some meds (left around 6:30am. Made important am meds into one times this afternoon. Objective VS-OK pain:9/10 H&H-9.5/30.0 Lytes-OK SCr-2.66 Assessment Vanco trough yesterday high, Held vancomycin for 24 hours, Zosyn continues. Plan Archie return to [facility] once her is cleared. No MD note yet today Original Note: Admission Pharmacy Clinical Review hyperglycemia, encephalopathy, suspected sepsis Code Status Full Code Current Weight 101.5 kg Renally Cleared and Narrow Therapeutic Index Meds Crcl ~39.4 mL/min using adjusted body weight -clonidine: monitor for adverse effects with renal impairment -gabapentin: 200-700 BID for Crcl 30-59 mL/min QTc Value / Action Taken n/a BP Control, Fever BP 143/76 afebrile Electrolytes reviewed Cl 109 DVT Prophylaxis heparin Opiate Usage / Scheduled Bowel Regimen Ordered no/no Plt/SCr for Heparin / Enoxaparin plt 414 SCr 2.56 INR for Warfarin n/a H/H stable, WBC/Bands h/h 9.3/29.9 wbc 10.82 Antibiotic appropriateness vanco and zosyn Cultures and Sensitivities blood cultures- no growth @ 24 hours MRSA screen-negative urine culture grew gram+ vijay Surgical ABX d/c within 24 hr n/a DM control / Insulin Dosing BG 235 scheduled glargine and sliding scale aspart Heart Failure (Check EF%) (ARYA's, B-Block, Diuretics) amlodipine, furosemide, metoprolol IV to PO Switch n/a Home Meds Reviewed -multiple forms of vitamin D increase risk of adverse/toxic effects -carbamazepine may increase the metabolism/decrease the serum concentration and effectiveness of amlodipine, risperidone, trazadone, and venlafaxine -separate the administration of magnesium chloride, multivitamin, and ferrous sulfate from gabapentin and levothyroxine -clonidine may enhance the AV-blocking effect of metoprolol; sinus node dysfunction may be enhanced. closely monitor heart rate -venlafaxine may enhance the serotonergic effect of trazodone, watch for adverse/toxic effects Home Meds Not Ordered adalimumab, omega-3 Comments -venlafaxine IR ordered daily, pt is on ER per simeon. I fixed home med list and changed order/signed it as pharm so would go back to the provider to sign off on it -lopressor ordered daily, was Q12H when discharged in January 2018, checking with simeon to see if changed to ER or still IR
--- NOTE | 2018-03-03 09:35 | OT.INNT ---
Date of service: 03/03/18 Time of Service: 09:35 Occupational Therapy Notes 03/03/18 OT went to see pt, pt was lying in bed. Pt would not open his eyes or respond to OT. Ot will check in with pt later. [facility]
[2018-03-03] MEDS: amLODIPine 5 MG TAB 10 MG PO (09:56)
[2018-03-03] MEDS: Folic Acid 1 MG TAB PO (09:57)
[2018-03-03] MEDS: Aspirin E.C. 81 MG TABEC PO ×2 (09:57→20:10)
[2018-03-03] MEDS: hydrALAZINE 10 MG TAB PO ×3 (09:57→20:11)
[2018-03-03] MEDS: Cyanocobalamin 500 MCG TAB 1000 MCG PO (09:57)
[2018-03-03] MEDS: Furosemide 40 MG TAB PO (09:57)
[2018-03-03] MEDS: cloNIDine 0.1 MG TAB 0.3 MG PO ×2 (09:57→20:10)
[2018-03-03] MEDS: carBAMazepine 100 MG CHEW PO ×3 (09:57→20:10)
[2018-03-03] MEDS: Metoprolol 25 MG TAB PO (09:57)
[2018-03-03] MEDS: Terazosin 2 MG CAP 4 MG PO ×2 (09:58→20:11)
[2018-03-03] MEDS: Magnesium Chloride 64 MG TABCR PO ×2 (09:58→20:11)
[2018-03-03] MEDS: Ascorbic Acid 500 MG TAB PO ×2 (09:58→20:10)
[2018-03-03] MEDS: Ferrous Sulfate 325 MG TAB PO ×2 (09:58→20:11)
[2018-03-03] MEDS: predniSONE 10 MG TAB PO (09:58)
[2018-03-03] MEDS: Multivitamin TAB 1 TAB PO (09:58)
[2018-03-03] MEDS: Omeprazole 20 MG CAPCR PO (09:58)
[2018-03-03] MEDS: Gabapentin 300 MG CAP PO ×3 (09:58→20:10)
[2018-03-03] MEDS: Venlafaxine 75 MG TAB PO (09:58)
[2018-03-03] MEDS: Insulin Aspart 300 UNITS/3 ML PEN SC ×4 (10:15→22:15)
[2018-03-03] MEDS: Normal Saline Flush 10 ML SYR IVP ×3 (10:16→22:12)
--- NOTE | 2018-03-03 10:38 | PT.INNT ---
Date of service: 03/03/18 Time of Service: 09:38 PT Notes PHYSICAL THERAPY NOTE 03/03/18 Attempted to see patient for PT Consult this am, pt lying in bed, opened eyes then closed them and said no. Pt's breakfast tray at bedside, therapist attempted to have patient sit up in bed to eat breakfast, pt stating no and turning away from therapist and started snoring. Yolanda Chang PT
--- NOTE | 2018-03-03 10:48 | DI.RAD_ITS ---
SYMPTOMS/DIAGNOSIS: ULCER OVER DISTAL PHALANX OF HALLUX AND 5TH METATARSAL HEAD RIGHT FOOT: Three views. Comparison is 12/21/13. There is cortical disruption on the plantar surface of the head of the right fifth metatarsal. The possibility of an osteomyelitis can not be excluded. There are also hammer toe deformities of the second through fifth toes. The interphalangeal joint of the great toe was held in flexion. No destructive changes, fracture or dislocation is seen in this region to suggest osteomyelitis. The bones appear osteopenic. No suspicious lytic or sclerotic lesions are seen. No radiopaque foreign bodies are seen in the soft tissues. IMPRESSION: 1. Findings suggestive of cortical destruction involving the plantar surface of the head of the right fifth metatarsal raising the question of osteomyelitis. 2. Chronic changes of the foot as described above. 3. No radiopaque findings to suggest osteomyelitis of the great toe.
--- NOTE | 2018-03-03 11:35 | OT.INTREAT ---
Date of service: 03/03/18 Time of Service: 10:33 Occupational Therapy Notes Occupational Therapy Inpatient Treatment Note Date: 03/03/18 PRECAUTIONS: Fall Precautions SUBJECTIVE: Pt was sitting on the side of his bed when OT arrived. He was not in a pleasant mood to start session but was agreeable to session when he was ready. OBJECTIVE: PAIN:no c/o pain EATING: Pt was eating breakfast sitting on side of bed. Able to (I) cut food with (R) hand and bring food to mouth translation. Pt educated on the importance of using (L) hand for stabilization patterns and functional participation in eating routine. Pt was receptive to education and brought (L) hand to tray for 20 seconds and then placed (L) hand in slumped position on the bed again. THEREX: Pt was provided blue foam cube and educated on truck packer strengthening for (B) hand. Pt demonstrated increased (I) and ideal technique. Pt instructed to perform this 3-4x per day, 7 days a week. ASSESSMENT: Pt was not making eye contact during most of OT session. OT discussed with pt deep breathing which OT educated pt on last admission here at [facility] which pt was receptive to. Pt still presenting with decreased (I) in (B) UEs. Pt would benefit from continued skilled OT intervention for progression of strengthening and education and training in UE bathing. PLAN: Progression of UE strengthening program UE bathing TREATMENT CODES/TIME: Self Carex1, 15 minutes (10:33) Suzanne Javier OTR/L [facility]
--- NOTE | 2018-03-03 11:42 | OTTR_ITS ---
Date of service: 03/03/18 Time of Service: 10:33 Occupational Therapy Notes Occupational Therapy Inpatient Treatment Note Date: 03/03/18 PRECAUTIONS: Fall Precautions SUBJECTIVE: Pt was sitting on the side of his bed when OT arrived. He was not in a pleasant mood to start session but was agreeable to session when he was ready. OBJECTIVE: PAIN:no c/o pain EATING: Pt was eating breakfast sitting on side of bed. Able to (I) cut food with (R) hand and bring food to mouth translation. Pt educated on the importance of using (L) hand for stabilization patterns and functional participation in eating routine. Pt was receptive to education and brought (L) hand to tray for 20 seconds and then placed (L) hand in slumped position on the bed again. THEREX: Pt was provided blue foam cube and educated on electrical power engineer strengthening for (B) hand. Pt demonstrated increased (I) and ideal technique. Pt instructed to perform this 3-4x per day, 7 days a week. ASSESSMENT: Pt was not making eye contact during most of OT session. OT discussed with pt deep breathing which OT educated pt on last admission here at [facility] which pt was receptive to. Pt still presenting with decreased (I) in (B) UEs. Pt would benefit from continued skilled OT intervention for progression of strengthening and education and training in UE bathing. PLAN: Progression of UE strengthening program UE bathing TREATMENT CODES/TIME: Self Carex1, 15 minutes (10:33) Suzanne Javier OTR/L [facility]
[2018-03-03] MEDS: Ergocalciferol 50000 UNITS CAP PO (13:36)
--- NOTE | 2018-03-03 15:20 | CHAPLAIN ---
Brendan and I know each other from when he was getting assistance from [employer] several years ago. Brendan lives at the [facility] now, but has had a few admissions to [facility] in the past few months. He told me this time he doesn't know why he was brought it. He didn't get much sleep the night before he came (fell asleep at 5:30 a.m.) and staff had trouble waking him up, so they called the ambulance, Brendan said. He did say that his blood pressure was high, his sugar was high and he had a temperature, but he believes all those issues would have lessened if the staff at the [facility] had let him sleep. Brendan had a question about insurance reimbursement, and I let his Gambling Counsellor, Radha Ramon, know.
--- NOTE | 2018-03-03 16:19 | W.SURGCON ---
Date of service: 03/03/18 Time of Service: 12:20 Assessment and Plan (1) Scar: Current visit: Yes Status: Acute Scar and extra skin. I think this is from his previous skin breakdowns and how he has scarred. I do not see any signs of inflammation and I couldn't feel any fluid. P\\ Continue with skin protection to avoid skin breakdown. Please let me know if there is anything else I can assist with as needed Thank you for your consultation History of Present Illness Chief Complaint: Sore over his sacrum Narrative: Mr. Corley is a 57 year old with a cholecystectomy tube in place who was admitted with mental status changes. Per wound nurses he is well known to them and has had previous sacral wounds. They noted some tissue that is sponge. No erythema. Consults Consult date: 03/03/18 Requesting physician: Priscila Canela Review of Systems Constitutional Denies chills and Denies fever(s) Comments: Patient is so somnolent that ROS symptoms was not done [facility] Medical History MRSA bacteremia (Resolved) Diabetic foot ulcer (Chronic) Poorly controlled type 2 diabetes mellitus with circulatory disorder (Chronic) CKD (chronic kidney disease) (Chronic) Cardiopulmonary arrest with successful resuscitation (Resolved) Heme positive stool (Chronic) Pedal edema (Chronic) Chronic insomnia (Chronic) Anxiety (Chronic) Diabetes mellitus type 2, controlled (Chronic) Hypertension (Chronic) Chronic pain (Chronic) Hypothyroidism (Chronic) Obesity (Chronic) Back pain (Chronic 06/21/13) Inability to get out of bed (Chronic 06/21/13) Poor self care (Chronic 06/21/13) Chronic bipolar disorder (Chronic) CAD (coronary artery disease) (Chronic) Dyslipidemia (Chronic) Hypoandrogenism (Chronic) Rheumatoid arthritis (Chronic) Crohns disease (Chronic) Osteoarthritis of both knees (Chronic) Cholelithiasis (Chronic) Impaired mobility and ADLs (Chronic) Acute congestive heart failure (Chronic) Hemorrhagic cystitis (Chronic) Anemia (Chronic) Bipolar 1 disorder (Chronic) CAD (coronary artery disease) (Chronic) Chronic anxiety (Chronic) Chronic pain (Chronic) 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 No erythema or fluctuance Results Last Vital Signs Temp 98.2 F 03/03/18 15:19 Pulse 50 L 03/03/18 15:19 Resp 20 03/03/18 15:19 BP 127/72 03/03/18 15:19 Pulse Ox 97 03/03/18 15:19 Labs : 03/03/18 06:20 03/03/18 06:20 Laboratory Results - last 24 hr 03/03/18 03/03/18 06:20 06:20 WBC 10.82 H RBC 4.01 L Hgb 9.3 L Hct 29.9 L MCV 74.6 L MCH 23.2 L MCHC 31.1 L RDW 20.7 H Plt Count 414 H MPV 10.0 Immature Gran % 0.7 Neutrophils % 77.6 Lymphocytes % 7.4 Monocytes % 5.4 Eosinophils % 8.6 Basophils % 0.3 Absolute Neutrophils 8.40 H Absolute Lymphocytes 0.80 L Absolute Monocytes 0.58 Absolute Eosinophils 0.93 H Absolute Basophils 0.03 Sodium 140 Potassium 4.3 Chloride 109 H Carbon Dioxide 20.3 L Anion Gap 10.7 BUN 44 H Creatinine 2.56 H Estimated GFR/1.73 m2 25.94 Glucose 238 H Calcium 8.4 L Magnesium 2.2
--- NOTE | 2018-03-03 17:44 | PDOC.CMPRO ---
Care Management Progress Note S/O: Brendan was lying in bed when CM met with him. He was alert and fully engaged. He requested support in finding out if he will be eligible for reimbursement of monies paid to the [facility] for the days he is inpatient at [facility]. He reports this has occurred in the past. CM agreed to follow up with the [facility] and provide requested information to Brendan when available. He spoke about planning to sleep early tomorrow night so he would be prepared for his appointment on . Brenadn is well known to [facility] and it is also known he is not a morning person; CM validated and encouraged Brendan for preparing himself for appointment. CM will continue to follow. A: 57 year old male admitted to [facility] 03/01/18 for Hyperglycemia, encephalopathy, suspected sepsis, pneumonia P: rBendan will have a down and back appointment to [facility] for T-tube evaluation and potential replacement-scheduled for 0830 on , 03/05/17-transportation to be coordinated by Nursing Principal Military Analyst; confirmed by Lety varghese. CM will continue to monitor clinical progress and support discharge planning considerations.
--- NOTE | 2018-03-03 17:49 | CMPROGNOTE_ITS ---
Care Management Progress Note S/O: Brendan was lying in bed when CM met with him. He was alert and fully engaged. He requested support in finding out if he will be eligible for reimbursement of monies paid to the [facility] for the days he is inpatient at [facility]. He reports this has occurred in the past. CM agreed to follow up with the [facility] and provide requested information to Brendan when available. He spoke about planning to sleep early tomorrow night so he would be prepared for his appointment on . Brendan is well known to [facility] and it is also known he is not a morning person; CM validated and encouraged Brendan for preparing himself for appointment. CM will continue to follow. A: 57 year old male admitted to [facility] 03/01/18 for Hyperglycemia, encephalopathy, suspected sepsis, pneumonia P: Brendan will have a down and back [place] [facility] [place] and potential replacement-scheduled for 0830 on , 03/05/17-transportation to be coordinated by Nursing Bone Plant Supervisor; confirmed by Lety varghese. CM will continue to monitor clinical progress and support discharge planning considerations.
[2018-03-03] MEDS: VANCOMYCIN 1,000 MG in Normal Saline 250 ML 250 MG IV (17:52)
--- NOTE | 2018-03-03 18:53 | W.PODCONSULT ---
Date of service: 03/03/18 Time of Service: 18:53 History of Present Illness Chief Complaint: Chronic ulcerations affecting the right great toe and fifth metatarsal head Narrative: Brendan is well-known to me. He has had chronic wounds on his feet which have failed to thrive. He was recently readmitted to [facility] for mental status changes associated with recurring sepsis. I have been asked to reassess the wounds on his feet. Review of Systems Constitutional Reports system reviewed and no additional complaints, except as docu [facility] Medical History MRSA bacteremia (Resolved) Diabetic foot ulcer (Chronic) Poorly controlled type 2 diabetes mellitus with circulatory disorder (Chronic) CKD (chronic kidney disease) (Chronic) Cardiopulmonary arrest with successful resuscitation (Resolved) Heme positive stool (Chronic) Pedal edema (Chronic) Chronic insomnia (Chronic) Anxiety (Chronic) Diabetes mellitus type 2, controlled (Chronic) Hypertension (Chronic) Chronic pain (Chronic) Hypothyroidism (Chronic) Obesity (Chronic) Back pain (Chronic 06/21/13) Inability to get out of bed (Chronic 06/21/13) Poor self care (Chronic 06/21/13) Chronic bipolar disorder (Chronic) CAD (coronary artery disease) (Chronic) Dyslipidemia (Chronic) Hypoandrogenism (Chronic) Rheumatoid arthritis (Chronic) Crohns disease (Chronic) Osteoarthritis of both knees (Chronic) Cholelithiasis (Chronic) Impaired mobility and ADLs (Chronic) Acute congestive heart failure (Chronic) Hemorrhagic cystitis (Chronic) Anemia (Chronic) Bipolar 1 disorder (Chronic) CAD (coronary artery disease) (Chronic) Chronic anxiety (Chronic) Chronic pain (Chronic) 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 He is not complaining of fever, chills or feelings of malaise. He is awake and alert and appears in his usual mental state. His feet are warm to the touch, he has trace peripheral edema but his calves are nontender to palpation. He has chronic venous stasis disease with hemosiderin changes noted on both legs. He has multiple abrasions over his knees and legs which is somewhat chronic and have been evaluated previously and may be partially neurogenic in nature. No sign of sepsis at this level. Toenails are chronically fungal but sufficiently debrided at this time. Full-thickness ulceration persists over the medial dorsal aspect of the right great toe at the base of the distal phalanx. Partial scabbing is noted but the wound easily probes down and appears to be approaching bone. The wound measures 6 mm long x 1 cm wide. Second wound is noted over the lateral plantar aspect of his right fifth metatarsal head. This wound is partial-thickness in nature and appears clean although there is hypertrophy with debris noted around the wound in need of debridement. Left foot displays a old wound over the great toe which is scabbed over and does not appear to show any signs of infection or drainage. Impressions: Probably healing wounds right great toe and fifth metatarsal head as stated above rule out osteomyelitis particularly of the great toe Plan: Utilizing a #10 scalpel the wound was sharply debrided of all necrotic material to bleeding edges. Bacitracin gauze dressings were applied with a bulky Kerlix roll. Orders will be written to have the wound cleansed daily with soap and water dressed with Silvadene 1% cream and gauze dressings. Moisturizing cream to be applied to his feet and legs daily to preserve turgor and help to prevent further breakdown. It is essential that we keep his feet off the mattress as he externally rotates and lies with the fifth ray against the mattress which certainly will impede any attempt of the fifth metatarsal head wound to close. Plain radiographs will be ordered for the morning. Thank you for the consultation. Results Last Vital Signs Temp 36.5 C 03/03/18 16:50 Pulse 48 L 03/03/18 16:50 Resp 20 03/03/18 16:50 BP 138/77 03/03/18 16:50 Pulse Ox 97 03/03/18 16:50 Labs : 03/03/18 06:20 03/03/18 06:20 Laboratory Results - last 24 hr 03/03/18 03/03/18 06:20 06:20 WBC 10.82 H RBC 4.01 L Hgb 9.3 L Hct 29.9 L MCV 74.6 L MCH 23.2 L MCHC 31.1 L RDW 20.7 H Plt Count 414 H MPV 10.0 Immature Gran % 0.7 Neutrophils % 77.6 Lymphocytes % 7.4 Monocytes % 5.4 Eosinophils % 8.6 Basophils % 0.3 Absolute Neutrophils 8.40 H Absolute Lymphocytes 0.80 L Absolute Monocytes 0.58 Absolute Eosinophils 0.93 H Absolute Basophils 0.03 Sodium 140 Potassium 4.3 Chloride 109 H Carbon Dioxide 20.3 L Anion Gap 10.7 BUN 44 H Creatinine 2.56 H Estimated GFR/1.73 m2 25.94 Glucose 238 H Calcium 8.4 L Magnesium 2.2
--- NOTE | 2018-03-03 19:02 | POCOE_ITS ---
Date of service: 03/03/18 Time of Service: 18:53 History of Present Illness Chief Complaint: Chronic ulcerations affecting the right great toe and fifth metatarsal head Narrative: Brendan is well-known to me. He has had chronic wounds on his feet which have failed to thrive. He was recently readmitted to [facility] for mental status changes associated with recurring sepsis. I have been asked to reassess the wounds on his feet. Review of Systems Constitutional Reports system reviewed and no additional complaints, except as docu [facility] Medical History MRSA bacteremia (Resolved) Diabetic foot ulcer (Chronic) Poorly controlled type 2 diabetes mellitus with circulatory disorder (Chronic) CKD (chronic kidney disease) (Chronic) Cardiopulmonary arrest with successful resuscitation (Resolved) Heme positive stool (Chronic) Pedal edema (Chronic) Chronic insomnia (Chronic) Anxiety (Chronic) Diabetes mellitus type 2, controlled (Chronic) Hypertension (Chronic) Chronic pain (Chronic) Hypothyroidism (Chronic) Obesity (Chronic) Back pain (Chronic 06/21/13) Inability to get out of bed (Chronic 06/21/13) Poor self care (Chronic 06/21/13) Chronic bipolar disorder (Chronic) CAD (coronary artery disease) (Chronic) Dyslipidemia (Chronic) Hypoandrogenism (Chronic) Rheumatoid arthritis (Chronic) Crohns disease (Chronic) Osteoarthritis of both knees (Chronic) Cholelithiasis (Chronic) Impaired mobility and ADLs (Chronic) Acute congestive heart failure (Chronic) Hemorrhagic cystitis (Chronic) Anemia (Chronic) Bipolar 1 disorder (Chronic) CAD (coronary artery disease) (Chronic) Chronic anxiety (Chronic) Chronic pain (Chronic) 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) Dyslipidemia (Chronic) Hypertension (Chronic) Surgical History Arthroplasty of knee (Resolved 03/18/12) Fracture, Open Treatment (Resolved) Social History [facility] Smoking/Tobacco Use Status: Never Exam Narrative Exam Narrative: Brendan is seen in his room he is resting comfortably in his bed. He is not complaining of fever, chills or feelings of malaise. He is awake and alert and appears in his usual mental state. His feet are warm to the touch, he has trace peripheral edema but his calves are nontender to palpation. He has chronic venous stasis disease with hemosiderin changes noted on both legs. He has multiple abrasions over his knees and legs which is somewhat chronic and have been evaluated previously and may be partially neurogenic in nature. No sign of sepsis at this level. Toenails are chronically fungal but sufficiently debrided at this time. Full-thickness ulceration persists over the medial dorsal aspect of the right great toe at the base of the distal phalanx. Partial scabbing is noted but the wound easily probes down and appears to be approaching bone. The wound measures 6 mm long x 1 cm wide. Second wound is noted over the lateral plantar aspect of his right fifth metatarsal head. This wound is partial-thickness in nature and appears clean although there is hypertrophy with debris noted around the wound in need of debridement. Left foot displays a old wound over the great toe which is scabbed over and does not appear to show any signs of infection or drainage. Impressions: Probably healing wounds right great toe and fifth metatarsal head as stated above rule out osteomyelitis particularly of the great toe Plan: Utilizing a #10 scalpel the wound was sharply debrided of all necrotic material to bleeding edges. Bacitracin gauze dressings were applied with a bulky Kerlix roll. Orders will be written to have the wound cleansed daily with soap and water dressed with Silvadene 1% cream and gauze dressings. Moisturizing cream to be applied to his feet and legs daily to preserve turgor and help to prevent further breakdown. It is essential that we keep his feet off the mattress as he externally rotates and lies with the fifth ray against the mattress which certainly will impede any attempt of the fifth metatarsal head wound to close. Plain radiographs will be ordered for the morning. Thank you for the consultation. Results Last Vital Signs Temp 36.5 C 03/03/18 16:50 Pulse 48 L 03/03/18 16:50 Resp 20 03/03/18 16:50 BP 138/77 03/03/18 16:50 Pulse Ox 97 03/03/18 16:50 Labs : 03/03/18 06:20 03/03/18 06:20 Laboratory Results - last 24 hr 03/03/18 03/03/18 06:20 06:20 WBC 10.82 H RBC 4.01 L Hgb 9.3 L Hct 29.9 L MCV 74.6 L MCH 23.2 L MCHC 31.1 L RDW 20.7 H Plt Count 414 H MPV 10.0 Immature Gran % 0.7 Neutrophils % 77.6 Lymphocytes % 7.4 Monocytes % 5.4 Eosinophils % 8.6 Basophils % 0.3 Absolute Neutrophils 8.40 H Absolute Lymphocytes 0.80 L Absolute Monocytes 0.58 Absolute Eosinophils 0.93 H Absolute Basophils 0.03 Sodium 140 Potassium 4.3 Chloride 109 H Carbon Dioxide 20.3 L Anion Gap 10.7 BUN 44 H Creatinine 2.56 H Estimated GFR/1.73 m2 25.94 Glucose 238 H Calcium 8.4 L Magnesium 2.2
--- NOTE | 2018-03-03 19:46 | PGE_ITS ---
Date of Service Date of service: 03/03/18 Time of Service: 15:45 Assessment and Plan (1) Toxic metabolic encephalopathy: Current visit: No Status: Resolved Resolved, likely in setting of impending sepsis/beginnings of acute (on chronic) adrenal insuffiency. Will need change of his cholecystostomy drain on this admission to ensure it's not contributing to repeated bouts of sepsis, which for this patient usually involves altered mental status. (2) HCAP (healthcare-associated pneumonia): Current visit: No Status: Acute Continue vancomycin and zosyn (Day 3). Blood cx x 2 with NGTD Repeat CXR. (3) Hyperglycemia: Current visit: No Status: Acute Continue basal bolus insulin, titrate basal insulin, add prandial scheduled insulin. (4) MRSA bacteremia: Current visit: No Status: Resolved Continue vancomycin. from prior admission. Blood cultures negative on this admission so far (5) Acute on chronic kidney failure: Current visit: No Status: Acute Continue lasix (6) Diabetic foot ulcer: Current visit: No Status: Chronic Continue wound care per outpatient instructions. Podiatry consulted (7) Poorly controlled type 2 diabetes mellitus with circulatory disorder: Current visit: No Status: Chronic As above (8) Adrenal insufficiency: Current visit: No Status: Acute Acute on chronic. S/p steroid burst. Continue his outpatient dose of prednisone. If BG's, sodiums start to decrease or mentation worsens, would give stress dose hydrocortisone. (9) Dehydration: Current visit: No Status: Resolved Continue lasix (10) DVT prophylaxis: Current visit: No Status: Acute SQ heparin (11) Discharge planning issues: Current visit: No Status: Acute Remains full code. Will need cholecystostomy drain change on this admission Subjective Interval history since last seen: Denies dizziness, chest pain, shortness of breath, nausea, vomiting. Requests to talk to case management Exam Narrative Exam Narrative: General: Middle Aged male, at his baseline with mental status, A&Ox3, laying in bed, pale HEENT: EOMI, MMM, poor dentition Cardiovascular: RRR, no m/r/g Lungs: CTAB Gastrointestinal: abdomen soft; cholecystostomy drain with crusty exit site, no obvious drainage or erythema; ileostomy site clean, dry, intact Extremities: trace edema of BLE's, no clubbing, or cyanosis of BLE's; 1+ pedal pulses bilaterally. Objective Objective Clinical Data: Abnormal lab results 03/03/18 03/03/18 Range/Units 06:20 06:20 WBC 10.82 H (4.4-10.8) k/cumm RBC 4.01 L (4.50-6.00) m/cumm Hgb 9.3 L (13.5-17.5) g/dL Hct 29.9 L (40.0-50.0) % MCV 74.6 L (80-95) fL MCH 23.2 L (27.0-33.0) pg MCHC 31.1 L (32.0-36.0) g/dL RDW 20.7 H (11.8-14.1) % Plt Count 414 H (130-400) x1000/uL Absolute Neutrophils 8.40 H (1.2-6.7) k/cumm Absolute Lymphocytes 0.80 L (1.2-3.4) k/cumm Absolute Eosinophils 0.93 H (0.0-0.7) k/cumm Chloride 109 H (98-107) mmol/L Carbon Dioxide 20.3 L (21.0-32.0) mmol/L BUN 44 H (7-18) mg/dL Creatinine 2.56 H (0.70-1.30) mg/dL Glucose 238 H (70-100) mg/dL Calcium 8.4 L (8.5-10.1) mg/dL Vital Signs Temperature 36.5 C 03/03/18 16:50 Temperature Source Tympanic 03/03/18 16:50 Pulse 48 L 03/03/18 16:50 Pulse Rhythm Regular 03/03/18 18:41 Pulse 66 03/01/18 10:10 Respiratory Rate 20 03/03/18 16:50 Respiratory Effort Non-Labored 03/03/18 18:41 Respiratory Depth Normal 03/03/18 18:41 Respiratory Pattern Normal 03/03/18 18:41 Blood Pressure 138/77 03/03/18 16:50 Blood Pressure Mean 86 03/01/18 10:01 Blood Pressure Position Supine 03/01/18 09:11 Pulse Oximetry 97 03/03/18 16:50 Oxygen Delivery Method Room Air 03/03/18 16:50 Oxygen Flow Rate 0 03/03/18 16:50 Pain Level 0 03/03/18 16:50 Intake & Output 03/02/18 03/03/18 03/03/18 23:59 11:59 23:59 Intake Total 1442.5 / 3430.0 340 / 980 640 / 980 Output Total 1350 / 3350 1575 / 2635 1060 / 2635 Balance 92.5 / 80.0 -1235 / -1655 -420 / -1655 Weight 101.5 kg Intake: IV 1002.5 / 2870.0 100 / 150 50 / 150 Oral 240 / 360 240 / 720 480 / 720 Injectate 200 / 200 110 / 110 Right Upper Abdomen 200 / 200 110 / 110 Output: Drainage 425 / 425 Right Upper Abdomen 425 / 425 Urine 850 / 1650 600 / 900 300 / 900 Stool 500 / 1000 550 / 1310 760 / 1310 Other: Urine Color Yellow Yellow Pale Yellow Urine Appearance Clear Clear Clear Urine Odor Normal Normal Voiding Methods Urinal Urinal Urinal Laboratory Results WBC 10.82 k/cumm (4.4-10.8) H 03/03/18 06:20 RBC 4.01 m/cumm (4.50-6.00) L 03/03/18 06:20 Hgb 9.3 g/dL (13.5-17.5) L 03/03/18 06:20 Hct 29.9 % (40.0-50.0) L 03/03/18 06:20 MCV 74.6 fL (80-95) L 03/03/18 06:20 MCH 23.2 pg (27.0-33.0) L 03/03/18 06:20 MCHC 31.1 g/dL (32.0-36.0) L 03/03/18 06:20 RDW 20.7 % (11.8-14.1) H 03/03/18 06:20 Plt Count 414 x1000/uL (130-400) H 03/03/18 06:20 MPV 10.0 fL (8.0-11.0) 03/03/18 06:20 Immature Gran % 0.7 03/03/18 06:20 Neutrophils % 77.6 03/03/18 06:20 Lymphocytes % 7.4 03/03/18 06:20 Monocytes % 5.4 03/03/18 06:20 Eosinophils % 8.6 03/03/18 06:20 Basophils % 0.3 03/03/18 06:20 Absolute Neutrophils 8.40 k/cumm (1.2-6.7) H 03/03/18 06:20 Absolute Lymphocytes 0.80 k/cumm (1.2-3.4) L 03/03/18 06:20 Absolute Monocytes 0.58 k/cumm (0.11-0.7) 03/03/18 06:20 Absolute Eosinophils 0.93 k/cumm (0.0-0.7) H 03/03/18 06:20 Absolute Basophils 0.03 k/cumm (0.0-0.2) 03/03/18 06:20 Differential Comment Rbc morph reviewed 03/02/18 07:00 RBC Morphology See below 03/02/18 07:00 Polychromasia Present 03/02/18 07:00 Hypochromasia 3+ 03/02/18 07:00 Poikilocytosis 2+ 03/02/18 07:00 Anisocytosis 3+ 03/02/18 07:00 Microcytosis 3+ 03/02/18 07:00 Tear Drop Cells 2+ 03/01/18 09:38 Ovalocytes 2+ 03/02/18 07:00 Sodium 140 mmol/L (136-145) 03/03/18 06:20 Potassium 4.3 mmol/L (3.5-5.1) 03/03/18 06:20 Chloride 109 mmol/L (98-107) H 03/03/18 06:20 Carbon Dioxide 20.3 mmol/L (21.0-32.0) L 03/03/18 06:20 Anion Gap 10.7 mmol/L (3-11) 03/03/18 06:20 BUN 44 mg/dL (7-18) H 03/03/18 06:20 Creatinine 2.56 mg/dL (0.70-1.30) H 03/03/18 06:20 Estimated GFR/1.73 m2 25.94 (mL/min/1.73m2) 03/03/18 06:20 Glucose 238 mg/dL (70-100) H 03/03/18 06:20 Lactate 1.1 mmol/L (0.6-1.4) 03/02/18 07:00 Calcium 8.4 mg/dL (8.5-10.1) L 03/03/18 06:20 Magnesium 2.2 mg/dL (1.8-2.4) 03/03/18 06:20 Total Bilirubin 0.2 mg/dL (0.2-1.0) 03/01/18 09:38 Conjugated Bilirubin 0.08 mg/dL (0.00-0.20) 03/01/18 09:38 AST 3 U/L (15-37) L 03/01/18 09:38 ALT 13 U/L (12-78) 03/01/18 09:38 Alkaline Phosphatase 273 U/L (46-116) H 03/01/18 09:38 Total Protein 7.1 g/dL (6.4-8.2) 03/01/18 09:38 Albumin 2.3 g/dL (3.4-5.0) L 03/01/18 09:38 TSH 0.61 uIU/mL (0.358-3.74) 03/02/18 07:00 Urine Color Yellow (Yellow) 03/01/18 09:38 Urine Clarity Sl cloudy 03/01/18 09:38 Urine pH 6.0 (5-8) 03/01/18 09:38 Ur Specific [place] 1.015 (1.005-1.025) 03/01/18 09:38 Urine Protein 100 mg/dL (Negative) H 03/01/18 09:38 Urine Ketones Negative mg/dL (Negative) 03/01/18 09:38 Urine Blood Trace-lysed (Negative) H 03/01/18 09:38 Urine Nitrite Negative (Negative) 03/01/18 09:38 Urine Bilirubin Negative (Negative) 03/01/18 09:38 Urine Urobilinogen 0.2 EU/dL (Up TO 0.2) 03/01/18 09:38 Ur Leukocyte Esterase Small (Negative) H 03/01/18 09:38 Urine RBC Negative (0-2) 03/01/18 09:38 Urine WBC 20-50 HPF (0-5) 03/01/18 09:38 Ur Epithelial Cells Negative HPF (Negative) 03/01/18 09:38 Urine Crystals Negative HPF (Negative) 03/01/18 09:38 Urine Bacteria Moderate HPF (Negative) 03/01/18 09:38 Urine Casts Negative LPF (Negative) 03/01/18 09:38 Urine Mucus Negative (Negative) 03/01/18 09:38 Urine Other Moderate yeast (Negative) 03/01/18 09:38 Ur Culture Indicated? Yes 03/01/18 09:38 Urine Glucose 500 mg/dL (Negative) H 03/01/18 09:38
[2018-03-03 21:22] LABS: Glucose 488 mg/dL (70-100)
[2018-03-03] MEDS: Insulin Glargine 300 UNITS/3 ML PEN 65 UNITS SC (22:12)
[2018-03-03] MEDS: risperiDONE 1 MG TAB 3 MG PO (22:16)
[2018-03-03] MEDS: traZODone 50 MG TAB PO (22:17)
[2018-03-04] MEDS: Heparin 5,000 UNITS/ML VIAL 5000 UNITS SC ×3 (00:10→16:09)
[2018-03-04] MEDS: Melatonin 3 MG TAB 9 MG PO ×2 (00:10→23:48)
[2018-03-04] MEDS: Acetaminophen 325 MG TAB PO ×2 (01:33→06:35)
[2018-03-04 03:16] VITALS: BP 139/73; PULSE 64; RESP 19; TEMP 36.8; O2SAT 97
[2018-03-04] MEDS: PIPERACILLIN/TAZO 2.25 GM in Normal Saline 50 ML IVPB ×4 (03:46→22:15)
[2018-03-04] MEDS: Normal Saline Flush 10 ML SYR IVP ×3 (03:47→16:09)
[2018-03-04] MEDS: Levothyroxine 75 MCG TAB 37.5 MCG PO (06:35)
[2018-03-04 07:14] LABS: Abs Immature Grans 0.08 k/cumm (0.0-0.09); Absolute Basophil Count 0.03 k/cumm (0.0-0.2); Absolute Eosinophil Count 0.99 k/cumm (0.0-0.7); Absolute Lymphocyte Count 0.89 k/cumm (1.2-3.4); Absolute Monocyte Count 0.63 k/cumm (0.11-0.7); Basophils % 0.3; Eosinophils % 8.8; HCT 30.3 % (40.0-50.0); HGB 9.4 g/dL (13.5-17.5); Immature Grans % 0.7; Lymphocytes % 7.9; Mean Corpuscular Volume 74.3 fL (80-95); Mean Platelet Volume 9.7 fL (8.0-11.0); Monocytes % 5.6; Neutrophils % 76.7; Platelet Count 400 x1000/uL (130-400); RBC 4.08 m/cumm (4.50-6.00); RBC Distribution Width 20.6 % (11.8-14.1); White Blood Cell Count 11.28 k/cumm (4.4-10.8)
[2018-03-04 07:20] LABS: Absolute Neutrophil Count 8.65 k/cumm (1.2-6.7)
[2018-03-04 07:21] LABS: BUN 44 mg/dL (7-18); CREATININE 2.84 mg/dL (0.70-1.30); Calcium 8.7 mg/dL (8.5-10.1); Chloride 107 mmol/L (98-107); Estimated GFR 23.01 (mL/min/1.73m2); Glucose 205 mg/dL (70-100); Magnesium 2.2 mg/dL (1.8-2.4); Sodium 139 mmol/L (136-145)
[2018-03-04 07:29] VITALS: BP 108/59; PULSE 52; RESP 17; TEMP 35.8; O2SAT 97
--- NOTE | 2018-03-04 08:30 | DI.RAD_ITS ---
SYMPTOMS/DIAGNOSIS: F/U PNEUMONIA PORTABLE CHEST: Comparison is 03/01/18. There is poor inspiration. The heart size and pulmonary vasculature are within normal limits. No focal consolidating infiltrates, effusions or pneumothoraces are identified. There is a right PICC line in stable position. IMPRESSION: No definite acute pulmonary process.
[2018-03-04] MEDS: Insulin Aspart 300 UNITS/3 ML PEN SC ×4 (09:00→22:17)
[2018-03-04] MEDS: Hydrocortisone SOD SUC. 100 MG VIAL IVP (10:32)
[2018-03-04 11:31] VITALS: BP 137/76; PULSE 71; RESP 18; TEMP 37.3; O2SAT 96
--- NOTE | 2018-03-04 11:41 | PT.INNT ---
Date of service: 03/04/18 Time of Service: 11:41 PT Notes PHYSICAL THERAPY NOTE 03/04/18 3rd day attempting to see patient for PT Consult. Pt awake, lying in bed. Pt stating he is not willing to sit up because it makes his bottom hurt. (pt has coccyx wound). Pt stating he will sit on edge of bed to eat lunch but won't work with therapy right now. When therapist attempted to set up a time to see patient he would not commit to a time stating later. Pt also stating don't wake me up when I am sleeping. PT spoke with MD regarding attempts to see patient and mobilize, MD aware of current status. Yolanda Chang PT
[2018-03-04] MEDS: Insulin Aspart 300 UNITS/3 ML PEN 10 UNITS SC ×2 (12:48→17:08)
--- NOTE | 2018-03-04 13:11 | OT.INTREAT ---
Date of service: 03/04/18 Time of Service: 11:35 Occupational Therapy Notes Occupational Therapy Inpatient Treatment Note Date: 03/04/18 PRECAUTIONS: Standard SUBJECTIVE: Pt was lying in bed when OT arrived. He is agreeable to OT session. OBJECTIVE: PAIN:no c/o pain Therapeutic Activities: Pt instructed in compensatory techniques for washing (B) UE and (B) UE functional movements to increase pts (I) in ADLs. Pt demonstrated increased AROM for crossing midline with (L) UE to pull hospital gown up onto shoulder and performed the following functional movements to increase pts (I) in bathing and dressing routines to include shoulder flexion, shoulder abduction/adduction, reaching in the saggital plane and frontal plane, performing functional grasp and release patterns and demonstrating increased (B) UE control when reaching towards (B) LE. ASSESSMENT: Pt was receptive to education and training at todays session. He was able to perform functional dynamic movements with increased control for (B) UE and demonstrated good movement in the horizontal plane but decreased (I) in frontal plane. Pt would benefit from continued skilled OT intervention for progression of functional activities, progression of strengthening and increased fine motor control to increase (I) in ADL performance. PLAN: Per POC. TREATMENT CODES/TIME: TAx1, 20 minutes (11:35) [facility]
[2018-03-04] MEDS: Gabapentin 300 MG CAP PO ×2 (14:24→20:04)
[2018-03-04] MEDS: carBAMazepine 100 MG CHEW PO ×2 (14:24→20:03)
[2018-03-04] MEDS: hydrALAZINE 10 MG TAB PO ×2 (14:24→20:04)
[2018-03-04] MEDS: cloNIDine 0.1 MG TAB 0.3 MG PO ×2 (14:24→20:11)
[2018-03-04 14:42] LABS: Bilirubin Negative (Negative); Blood Trace-intact (Negative); Clarity Clear; Glucose Negative (Negative); Ketones Negative (Negative); Leukocyte Esterase Small (Negative); Nitrite Negative (Negative); Urobilinogen 0.2 EU/dL (Up TO 0.2)
[2018-03-04 15:03] LABS: WBC >50 HPF (0-5)
[2018-03-04 15:04] LABS: Epithelial Cells Negative HPF (Negative)
[2018-03-04 15:06] LABS: Bacteria Moderate HPF (Negative); Casts 3-5 Coarse Granular LPF (Negative); Crystals Few Amorphous HPF (Negative); Mucus Negative (Negative)
[2018-03-04 15:07] LABS: C & S Indicated? C&S Done As Ordered
[2018-03-04 15:08] LABS: Other Cells Moderate Yeast (Negative)
[2018-03-04] MEDS: Hydrocortisone SOD SUC. 100 MG VIAL 50 MG IV ×2 (16:09→22:16)
[2018-03-04 16:28] VITALS: BP 152/62; PULSE 71; RESP 20; TEMP 37; O2SAT 96
[2018-03-04 16:28] LABS: Vancomycin, Trough 30.9 ug/mL (10.0-20.0)
--- NOTE | 2018-03-04 17:07 | PDOC.CMPRO ---
Care Management Progress Note S/O: Brendan was lying in bed when CM met with him. CM relayed information from Isela at the [facility] regarding Medicaid base rate of pay, patient share and room and board. CM notified Brendan that Isela reported she would consult the billing department and confirm information and then follow up with Brendan but did not think he would be reimbursed for time not spent at the [facility]. Brendan discussed concerns about wanting better food and having his clothes lost; CM reviewed outlets for outreach. Brendan requested contact information for Haily Orr which was provided as well as resources for [facility] advocacy. A: 57 year old male admitted to [facility] 03/01/18 for Hyperglycemia, encephalopathy, suspected sepsis, pneumonia P: Brendan will have a down and back appointment to [facility] for T-tube evaluation and potential replacement-scheduled for 0830 on , 03/05/17-transportation to be coordinated by Nursing Associate Project Manager; confirmed by Lety varghese. CM will continue to monitor clinical progress and support discharge planning considerations.
--- NOTE | 2018-03-04 17:11 | CMPROGNOTE_ITS ---
Care Management Progress Note S/O: Brendan was lying in bed when CM met with him. CM relayed information from Isela at the [facility] regarding Medicaid base rate of pay, patient share and room and board. CM notified Brendan that Isela reported she would consult the billing department and confirm information and then follow up with Brendan but did not think he would be reimbursed for time not spent at the [facility]. Brendan discussed concerns about wanting better food and having his clothes lost; CM reviewed outlets for outreach. Brendan requested contact information for [facility]aily Orr which was provided as well as resources for [facility] advocacy. A: 57 year old male admitted to [facility] 03/01/18 for Hyperglycemia, encephalopathy, suspected sepsis, pneumonia P: Brendan will have a down and back appointment to [facility] for T-tube evaluation and potential replacement-scheduled for 0830 on , 03/05/17-transportation to be coordinated by Nursing Poultry Inspector; confirmed by Lety varghese. CM will continue to monitor clinical progress and support discharge planning considerations.
[2018-03-04] MEDS: Terazosin 2 MG CAP 4 MG PO (20:04)
[2018-03-04] MEDS: Ferrous Sulfate 325 MG TAB PO (20:04)
[2018-03-04] MEDS: Magnesium Chloride 64 MG TABCR PO (20:04)
[2018-03-04] MEDS: Ascorbic Acid 500 MG TAB PO (20:04)
[2018-03-04] MEDS: Aspirin E.C. 81 MG TABEC PO (20:05)
--- NOTE | 2018-03-04 20:59 | W.PM.PROGNOT ---
Date of Service Date of service: 03/04/18 Time of Service: 10:00 Assessment and Plan (1) Toxic metabolic encephalopathy: Current visit: No Status: Acute Recurrent and accompanied by hypothermia and hyponatremia, reflective of acute on chronic adrenal insufficiency. Treat infection, start stress dose steroids. Will need change of his cholecystostomy drain on this admission to ensure it's not contributing to repeated bouts of sepsis, which for this patient usually involves altered mental status. (2) HCAP (healthcare-associated pneumonia): Current visit: No Status: Acute Improving clinically. Continue vancomycin and zosyn (Day 4). Blood cx x 2 with NGTD Repeat CXR negative. (3) Hyperglycemia: Current visit: No Status: Acute Continue basal bolus insulin, titrate basal insulin (decreasing slightly today as NPO after midnight for a procedure tomorrow), continue prandial scheduled insulin. (4) MRSA bacteremia: Current visit: No Status: Resolved Continue vancomycin. from prior admission. Blood cultures repeated today (5) Acute on chronic kidney failure: Current visit: No Status: Acute Continue lasix (6) Diabetic foot ulcer: Current visit: No Status: Chronic Continue wound care. 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 Initiated hydrocortisone IV. (9) Dehydration: Current visit: No Status: Resolved Continue lasix (10) DVT prophylaxis: Current visit: No Status: Acute SQ heparin (11) Discharge planning issues: Current visit: No Status: Acute Remains full code. Will need [place]ole[place] tomorrow [place] 8[place]30 [place] [facility] [place] Interval history since last seen: I was called to the room because the patient was less responsive than normal and difficult to arouse. He was unable to answer any of my questions at the time, but was opening eyes to my voice. Exam Narrative Exam Narrative: General: Middle Aged male, lethargic, difficult to arouse HEENT: EOMI, MMM, poor dentition Cardiovascular: RRR, no m/r/g Lungs: CTAB Gastrointestinal: abdomen soft; cholecystostomy drain with crusty exit site, no obvious drainage or erythema; ileostomy site clean, dry, intact Extremities: trace edema of BLE's, no clubbing, or cyanosis of BLE's; 1+ pedal pulses bilaterally. Objective Objective Clinical Data: Abnormal lab results 03/03/18 03/04/18 03/04/18 Range/Units 21:00 06:20 06:20 WBC 11.28 H (4.4-10.8) k/cumm RBC 4.08 L (4.50-6.00) m/cumm Hgb 9.4 L (13.5-17.5) g/dL Hct 30.3 L (40.0-50.0) % MCV 74.3 L (80-95) fL MCH 23.0 L (27.0-33.0) pg MCHC 31.0 L (32.0-36.0) g/dL RDW 20.6 H (11.8-14.1) % Absolute Neutrophils 8.65 H (1.2-6.7) k/cumm Absolute Lymphocytes 0.89 L (1.2-3.4) k/cumm Absolute Eosinophils 0.99 H (0.0-0.7) k/cumm Carbon Dioxide 20.0 L (21.0-32.0) mmol/L Anion Gap 12.0 H (3-11) mmol/L BUN 44 H (7-18) mg/dL Creatinine 2.84 H (0.70-1.30) mg/dL Glucose 488 H D 205 H D (70-100) mg/dL Urine Protein (Negative) mg/dL Urine Blood (Negative) Ur Leukocyte Esterase (Negative) Urine RBC (0-2) Vancomycin Trough (10.0-20.0) ug/mL 03/04/18 03/04/18 Range/Units 14:20 15:55 WBC (4.4-10.8) k/cumm RBC (4.50-6.00) m/cumm Hgb (13.5-17.5) g/dL Hct (40.0-50.0) % MCV (80-95) fL MCH (27.0-33.0) pg MCHC (32.0-36.0) g/dL RDW (11.8-14.1) % Absolute Neutrophils (1.2-6.7) k/cumm Absolute Lymphocytes (1.2-3.4) k/cumm Absolute Eosinophils (0.0-0.7) k/cumm Carbon Dioxide (21.0-32.0) mmol/L Anion Gap (3-11) mmol/L BUN (7-18) mg/dL Creatinine (0.70-1.30) mg/dL Glucose (70-100) mg/dL Urine Protein 30 H (Negative) mg/dL Urine Blood Trace-intact H (Negative) Ur Leukocyte Esterase Small H (Negative) Urine RBC 3-5 H (0-2) Vancomycin Trough 30.9 H* (10.0-20.0) ug/mL Vital Signs Temperature 37.0 C 03/04/18 16:28 Temperature Source Tympanic 03/04/18 16:28 Pulse 71 03/04/18 16:28 Pulse Rhythm Regular 03/04/18 19:49 Pulse 66 03/01/18 10:10 Respiratory Rate 20 03/04/18 16:28 Respiratory Effort Non-Labored 03/04/18 19:49 Respiratory Depth Deep 03/04/18 19:49 Respiratory Pattern Normal 03/04/18 19:49 Blood Pressure 152/62 H 03/04/18 16:28 Blood Pressure Mean 86 03/01/18 10:01 Blood Pressure Position Supine 03/01/18 09:11 Pulse Oximetry 96 03/04/18 16:28 Oxygen Delivery Method Room Air 03/04/18 16:28 Oxygen Flow Rate 0 03/04/18 16:28 Pain Level 7 03/04/18 06:35 Intake & Output 03/03/18 03/04/18 03/04/18 23:59 11:59 23:59 Intake Total 1300 / 1640 610 / 950 340 / 950 Output Total 1060 / 2635 1660 / 3335 1675 / 3335 Balance 240 / -995 -1050 / -2385 -1335 / -2385 Weight 102 kg Intake: IV 350 / 450 130 / 230 100 / 230 Oral 840 / 1080 480 / 720 240 / 720 Injectate 110 / 110 Right Upper Abdomen 110 / 110 Output: Drainage 385 / 660 275 / 660 Right Upper Abdomen 385 / 660 275 / 660 Urine 300 / 900 700 / 1350 650 / 1350 Stool 760 / 1310 575 / 1325 750 / 1325 Other: Urine Color Pale Yellow Yellow Yellow Urine Appearance Clear Clear Clear Comment At 11:00 Stool Characteristics Soft Liquid Voiding Methods Urinal Urinal Urinal Laboratory Results WBC 11.28 k/cumm (4.4-10.8) H 03/04/18 06:20 RBC 4.08 m/cumm (4.50-6.00) L 03/04/18 06:20 Hgb 9.4 g/dL (13.5-17.5) L 03/04/18 06:20 Hct 30.3 % (40.0-50.0) L 03/04/18 06:20 MCV 74.3 fL (80-95) L 03/04/18 06:20 MCH 23.0 pg (27.0-33.0) L 03/04/18 06:20 MCHC 31.0 g/dL (32.0-36.0) L 03/04/18 06:20 RDW 20.6 % (11.8-14.1) H 03/04/18 06:20 Plt Count 400 x1000/uL (130-400) 03/04/18 06:20 MPV 9.7 fL (8.0-11.0) 03/04/18 06:20 Immature Gran % 0.7 03/04/18 06:20 Neutrophils % 76.7 03/04/18 06:20 Lymphocytes % 7.9 03/04/18 06:20 Monocytes % 5.6 03/04/18 06:20 Eosinophils % 8.8 03/04/18 06:20 Basophils % 0.3 03/04/18 06:20 Absolute Neutrophils 8.65 k/cumm (1.2-6.7) H 03/04/18 06:20 Absolute Lymphocytes 0.89 k/cumm (1.2-3.4) L 03/04/18 06:20 Absolute Monocytes 0.63 k/cumm (0.11-0.7) 03/04/18 06:20 Absolute Eosinophils 0.99 k/cumm (0.0-0.7) H 03/04/18 06:20 Absolute Basophils 0.03 k/cumm (0.0-0.2) 03/04/18 06:20 Differential Comment Rbc morph reviewed 03/02/18 07:00 RBC Morphology See below 03/02/18 07:00 Polychromasia Present 03/02/18 07:00 Hypochromasia 3+ 03/02/18 07:00 Poikilocytosis 2+ 03/02/18 07:00 Anisocytosis 3+ 03/02/18 07:00 Microcytosis 3+ 03/02/18 07:00 Tear Drop Cells 2+ 03/01/18 09:38 Ovalocytes 2+ 03/02/18 07:00 Sodium 139 mmol/L (136-145) 03/04/18 06:20 Potassium 4.0 mmol/L (3.5-5.1) 03/04/18 06:20 Chloride 107 mmol/L (98-107) 03/04/18 06:20 Carbon Dioxide 20.0 mmol/L (21.0-32.0) L 03/04/18 06:20 Anion Gap 12.0 mmol/L (3-11) H 03/04/18 06:20 BUN 44 mg/dL (7-18) H 03/04/18 06:20 Creatinine 2.84 mg/dL (0.70-1.30) H 03/04/18 06:20 Estimated GFR/1.73 m2 23.01 (mL/min/1.73m2) 03/04/18 06:20 Glucose 205 mg/dL (70-100) H D 03/04/18 06:20 Lactate 1.1 mmol/L (0.6-1.4) 03/02/18 07:00 Calcium 8.7 mg/dL (8.5-10.1) 03/04/18 06:20 Magnesium 2.2 mg/dL (1.8-2.4) 03/04/18 06:20 Total Bilirubin 0.2 mg/dL (0.2-1.0) 03/01/18 09:38 Conjugated Bilirubin 0.08 mg/dL (0.00-0.20) 03/01/18 09:38 AST 3 U/L (15-37) L 03/01/18 09:38 ALT 13 U/L (12-78) 03/01/18 09:38 Alkaline Phosphatase 273 U/L (46-116) H 03/01/18 09:38 Total Protein 7.1 g/dL (6.4-8.2) 03/01/18 09:38 Albumin 2.3 g/dL (3.4-5.0) L 03/01/18 09:38 TSH 0.61 uIU/mL (0.358-3.74) 03/02/18 07:00 Urine Color Yellow (Yellow) 03/04/18 14:20 Urine Clarity Clear 03/04/18 14:20 Urine pH 6.0 (5-8) 03/04/18 14:20 Ur Specific Brick 1.020 (1.005-1.025) 03/04/18 14:20 Urine Protein 30 mg/dL (Negative) H 03/04/18 14:20 Urine Ketones Negative mg/dL (Negative) 03/04/18 14:20 Urine Blood Trace-intact (Negative) H 03/04/18 14:20 Urine Nitrite Negative (Negative) 03/04/18 14:20 Urine Bilirubin Negative (Negative) 03/04/18 14:20 Urine Urobilinogen 0.2 EU/dL (Up TO 0.2) 03/04/18 14:20 Ur Leukocyte Esterase Small (Negative) H 03/04/18 14:20 Urine RBC 3-5 (0-2) H 03/04/18 14:20 Urine WBC >50 HPF (0-5) 03/04/18 14:20 Ur Epithelial Cells Negative HPF (Negative) 03/04/18 14:20 Urine Crystals Few amorphous HPF (Negative) 03/04/18 14:20 Urine Bacteria Moderate HPF (Negative) 03/04/18 14:20 Urine Casts 3-5 coarse granular LPF (Negative) 03/04/18 14:20 Urine Mucus Negative (Negative) 03/04/18 14:20 Urine Other Moderate yeast (Negative) 03/04/18 14:20 Ur Culture Indicated? C&s done as ordered 03/04/18 14:20 Urine Glucose Negative mg/dL (Negative) 03/04/18 14:20 Vancomycin Trough 30.9 ug/mL (10.0-20.0) H* 03/04/18 15:55
[2018-03-04 21:31] VITALS: BP 161/74; PULSE 65; RESP 20; TEMP 37.1; O2SAT 97
[2018-03-04] MEDS: risperiDONE 1 MG TAB 3 MG PO (22:15)
[2018-03-04] MEDS: traZODone 50 MG TAB PO (22:15)
[2018-03-04] MEDS: Insulin Glargine 300 UNITS/3 ML PEN 45 UNITS SC (22:16)
[2018-03-05] VITALS (7 sets, daily range): BP systolic 105–175; BP diastolic 64–90; PULSE 53–74; RESP 18–20; TEMP 35.9–36.9; O2SAT 94–98
[2018-03-05] MEDS: PIPERACILLIN/TAZO 2.25 GM in Normal Saline 50 ML IVPB ×3 (03:42→22:24)
[2018-03-05] MEDS: Hydrocortisone SOD SUC. 100 MG VIAL 50 MG IV ×3 (03:42→22:25)
[2018-03-05] MEDS: Levothyroxine 75 MCG TAB 37.5 MCG PO (04:54)
--- NOTE | 2018-03-05 09:42 | OT.INNT ---
Date of service: 03/05/18 Time of Service: 09:42 Occupational Therapy Notes 03/05/18 [place] [facility] [place] OT will hold on OT services at todays session for today and check in with pt tomorrow. Suzanne Javier OTR/[facility]
--- NOTE | 2018-03-05 09:43 | NT_ITS ---
Date of service: 03/05/18 Time of Service: 09:42 Occupational Therapy Notes 03/05/18 Pt gone for testing at [facility] [place]. OT will hold on OT services at todays session for today and check in with pt tomorrow. Suzanne Javier OTR/[facility]
--- NOTE | 2018-03-05 09:48 | PDOC.CMPRO ---
- If Service Date Differs Date of service: 03/05/18 Time of Service: 09:48 Care Management Progress Note S/O: [place] [facility] appointment for T-Tube evaluation and potential replacement. Brendan transported via [facility] this morning at 0630. Brendan continues on IV antibiotics at this time. No change in DC plan. A: 57 year old male admitted to [facility] 03/01/18 for Hyperglycemia, encephalopathy, suspected sepsis, pneumonia P: Brendan will return to [facility] once medically cleared. CM will continue to monitor clinical progress and support discharge planning considerations.
--- NOTE | 2018-03-05 09:53 | CMPROGNOTE_ITS ---
- If Service Date Differs Date of service: 03/05/18 Time of Service: 09:48 Care Management Progress Note S/O: Brendan is at [facility] [place] this morning for a down and back appointment for T-Tube evaluation and potential replacement. Brendan transported via [facility] this morning at 0630. Brendan continues on IV antibiotics at this time. No change in DC plan. A: 57 year old male admitted to [facility] 03/01/18 for Hyperglycemia, encephalopathy, suspected sepsis, pneumonia P: Brendan will return to [facility] once medically cleared. CM will continue to monitor clinical progress and support discharge planning considerations.
--- NOTE | 2018-03-05 11:09 | PT.INNT ---
Date of service: 03/05/18 Time of Service: 11:09 PT Notes 03/05/18 Attempted evaluation this morning; patient is attending an appointment at [facility] and is subsequently not available for evaluation. Will attempt again this afternoon. Carrol Mora, PT, DPT
--- NOTE | 2018-03-05 11:11 | NT_ITS ---
Date of service: 03/05/18 Time of Service: 11:09 PT Notes 03/05/18 Attempted evaluation this morning; patient is attending an appointment at [facility] [place] and is subsequently not available for evaluation. Will attempt again this afternoon. Carrol Mora, PT, DPT
--- NOTE | 2018-03-05 11:13 | NUR.NOTE ---
Nursing Note: At 1112 on 03/05/18, this RN received report from MACARENA Oates at interventional radiology at [facility]. Per MACARENA Oates, pt. to be transported from [facility] to [facility] shortly. Per MACARENA Oates, if the pt. isn't experiencing any pain the tube can remain capped. If the pt. is experiencing pain the tube can be attached to a gravity bag and allowed to drain. There is no need to flush the tube. Written instructions/orders from the MD will be sent up with the pt. RN will reassess as necessary.
[2018-03-05] MEDS: amLODIPine 5 MG TAB 10 MG PO (13:02)
[2018-03-05] MEDS: Omeprazole 20 MG CAPCR PO (13:03)
[2018-03-05] MEDS: Furosemide 40 MG TAB PO (13:03)
[2018-03-05] MEDS: Metoprolol CR 25 MG TABCR PO (13:03)
[2018-03-05] MEDS: Venlafaxine 37.5 MG CAPCR 75 MG PO (13:03)
[2018-03-05] MEDS: predniSONE 10 MG TAB PO (13:03)
[2018-03-05] MEDS: Normal Saline Flush 10 ML SYR IVP ×3 (13:03→18:46)
[2018-03-05] MEDS: Acetaminophen 325 MG TAB PO (13:21)
[2018-03-05 13:26] LABS: HGB 9.5 g/dL (13.5-17.5); Mean Corp. HGB Concentration 31.7 g/dL (32.0-36.0); Mean Corpuscular Hemoglobin 23.5 pg (27.0-33.0); Mean Corpuscular Volume 74.1 fL (80-95); Mean Platelet Volume 9.8 fL (8.0-11.0); Neutrophils % 79.7; Platelet Count 405 x1000/uL (130-400); RBC 4.05 m/cumm (4.50-6.00); RBC Distribution Width 20.3 % (11.8-14.1); White Blood Cell Count 9.28 k/cumm (4.4-10.8)
[2018-03-05 13:27] LABS: Abs Immature Grans 0.11 k/cumm (0.0-0.09); Absolute Basophil Count 0.04 k/cumm (0.0-0.2); Absolute Eosinophil Count 0.24 k/cumm (0.0-0.7); Absolute Lymphocyte Count 0.99 k/cumm (1.2-3.4); Basophils % 0.4; Eosinophils % 2.6; Immature Grans % 1.2; Lymphocytes % 10.7; Monocytes % 5.4
[2018-03-05 13:34] LABS: Anion Gap 11.6 mmol/L (3-11); BUN 41 mg/dL (7-18); CO2 19.4 mmol/L (21.0-32.0); CREATININE 2.66 mg/dL (0.70-1.30); Calcium 8.9 mg/dL (8.5-10.1); Chloride 108 mmol/L (98-107); Estimated GFR 24.82 (mL/min/1.73m2); Glucose 277 mg/dL (70-100); Magnesium 2.2 mg/dL (1.8-2.4); Potassium 4.5 mmol/L (3.5-5.1); Sodium 139 mmol/L (136-145)
[2018-03-05 13:49] LABS: Prothrombin Time 9.6 sec (9.3-11.0)
[2018-03-05] MEDS: Insulin Aspart 300 UNITS/3 ML PEN 10 UNITS SC ×2 (14:08→17:02)
[2018-03-05] MEDS: hydrALAZINE 10 MG TAB PO ×2 (14:08→19:40)
[2018-03-05] MEDS: Insulin Aspart 300 UNITS/3 ML PEN SC ×3 (14:08→22:27)
[2018-03-05] MEDS: cloNIDine 0.1 MG TAB 0.3 MG PO ×2 (14:08→19:40)
[2018-03-05] MEDS: carBAMazepine 100 MG CHEW PO ×2 (14:09→19:40)
[2018-03-05] MEDS: Gabapentin 300 MG CAP PO ×2 (14:09→19:40)
--- NOTE | 2018-03-05 15:13 | PT.INIE ---
Date of service: 03/05/18 Time of Service: 13:30 PT Notes Inpatient Physical Therapy Evaluation Date: 03/05/2018 Referring Doctor: Dr. Priscila Canela PT Orders: PT CONSULT: Evaluate and treat Precautions: Standard, contact, fall Patient Profile/Admitting Diagnosis: Patient admitted with toxic metabolic encephalopathy. He is a resident of [facility], with complicated medical history. Initial referral was received on 03/01/2018, although patient has refused PT evaluation in the interval. PMHX: MRSA bacteremia; chronic adrenal insufficiency; RA with chronic steroid use; Crohn's disease, status post ileostomy; sepsis; history of cardiac arrest; cholecystitis, status post cholecystectomy drain Social History/Home Situation: Patient is a resident of [facility]. Per his report he walks short distances only, he estimates approximately 10 steps with use of wheeled walker. He does not manage stairs. Equipment Owned/DME: Wheeled walker, resides in long-term care facility Subjective: Patient is resting in bed, joking with hospital staff. He states that he is very hungry, although agrees to PT consult. Objective: General Observation: Resting in bed, no lines. Patient has several wounds throughout the lower extremities, in various stages of healing. His right foot is dressed. Mental Status: A and O x3 Pain: Denies pain currently ROM: Right Upper Extremity: Shoulder flexion 80 degrees. Elbow motion is within functional limits. Patient able to demonstrate full fitness center attendant, although only 50% hand opening actively; passively he is able to achieve good functional opening of the hand. Left Upper Extremity: Shoulder flexion 80 degrees. Elbow motion is within functional limits. Patient able to demonstrate full fitness center attendant, although only 50% hand opening actively; passively he is able to achieve good functional opening of the hand. Right Lower Extremity: Patient has approximately 15-20 degree knee flexion contracture. Demonstrates ankle dorsiflexion to 0 degrees. Left Lower Extremity: Patient has approximately 15-20 degree knee flexion contracture. Demonstrates ankle dorsiflexion to 0 degrees. Strength: Right Upper Extremity: Shoulder flexion 3-/5. Biceps 4+/5. Triceps 4-/5. Switch Engineer is weak but equal. Left Upper Extremity: Shoulder flexion 3-/5. Biceps 4+/5. Triceps 4-/5. Switch Engineer is weak but equal. Right Lower Extremity: Hip flexion 4+/5. Quads 4+/5. Hamstrings 4/5. Ankle dorsiflexion 3/5. Left Lower Extremity: Hip flexion 4+/5. Quads 4+/5. Hamstrings 4/5. Ankle dorsiflexion 3/5. Bed Mobility/Transfers: Supine to sit: Min assist with head of bed at 30 degrees Sit to stand: CG Stand to sit: CG Bed to chair: Refused Gait: Patient performed sidestepping x3 steps with upper extremity support to wheeled walker and CG. He declines further ambulation. Balance: Static Sitting: Normal Dynamic Sitting: Normal Static Standing: Fair Dynamic Standing: Fair Special Tests: Mobility Limitations Standardized Measure [facility] AM-PAC 6 clicks Basic Mobility Inpatient Short Form: Raw Score: 14 standardized Score: 38.1 CMS Score: 61% [facility] Modifier: CL Informed Consent/Education: Patient instructed in purpose of PT consult and plan of care. Assessment: Patient is a 57 year old male referred to physical therapy services with the diagnosis of toxic metabolic encephalopathy. Patient presents with clinical signs and symptoms consistent with diminished mobility related to acute medical issues. Patient does have chronic mobility deficits, and resides in a long-term care facility, where he requires assistance with all ambulation and self-care. PT goals will be targeted at maximizing patient's mobility and strength to allow for safe transition back to long-term care facility. He currently demonstrates the following impairment level findings: 1. Decreased lower extremity strength 2. Decreased upper extremity strength 3. Decreased activity tolerance 4. Decreased range of motion bilateral knees and hands Impairments are contributing to the following functional limitations: 1. Unable to tolerate short distance ambulation 2. Patient requiring assistance with bed mobility 3. Decreased activity tolerance 4. Decreased safety with transfers [facility] score 61% deficit Patient is assessed as High [id number] complexity based on the following: History: Diminished mobility due to acute medical issues and 57-year-old male with complicated medical history and gradual decline in independence and mobility. Patient has been residing in a long-term care facility for the past 5 years, and admits to limited mobility in that setting. He also struggles with multiple areas of joint pain related to RA, multiple wounds in various stages of healing, and history of significant cardiac and GI issues. Full medical history can be found noted above. Examination: Functional limitations as noted above Presentation: Unstable Decision Making: High complexity Goals: Goals X1 week 1. Supine-Sit independent 2. Sit-Supine independent 3. Sit-Stand CG with upper extremity support to wheeled walker 4. Stand-Sit CG 5. Bed-Chair min assist with WW 6. Chair-Bed min assist with WW 7. Gait: 10' with WW and min A Plan of Care/Treatment Plan: 1-2x/day, 7 days/week x 1 week. Plan of care has been reviewed with the [employer] providing the service under Physical Therapy direction. Initiate Physical Therapy intervention for strengthening, bed mobility, transfers, gait, stairs, balance training, use of assistive device. DISCHARGE RECOMMENDATIONS: Return to the [facility] with no equipment needs anticipated TREATMENT CODE/TIME: 20 minutes (58532) G Codes in the area mobility of walking and moving around: current status [id number] CL; projected status GP [id number]. Discharge status (if discharging) GP [id number] CL. Thank you for this referral. Carrol Mora, PT, DPT
--- NOTE | 2018-03-05 15:30 | IN_ITS ---
Date of service: 03/05/18 Time of Service: 13:30 PT Notes Inpatient Physical Therapy Evaluation Date: 03/05/2018 Referring Doctor: Dr. Priscila Canela PT Orders: PT CONSULT: Evaluate and treat Precautions: Standard, contact, fall Patient Profile/Admitting Diagnosis: Patient admitted with toxic metabolic encephalopathy. He is a resident of [facility], with complicated medical history. Initial referral was received on 03/01/2018, although patient has refused PT evaluation in the interval. PMHX: MRSA bacteremia; chronic adrenal insufficiency; RA with chronic steroid use; Crohn's disease, status post ileostomy; sepsis; history of cardiac arrest; cholecystitis, status post cholecystectomy drain Social History/Home Situation: Patient is a resident of [facility]. Per his report he walks short distances only, he estimates approximately 10 steps with use of wheeled walker. He does not manage stairs. Equipment Owned/DME: Wheeled walker, resides in long-term care facility Subjective: Patient is resting in bed, joking with hospital staff. He states that he is very hungry, although agrees to PT consult. Objective: General Observation: Resting in bed, no lines. Patient has several wounds throughout the lower extremities, in various stages of healing. His right foot is dressed. Mental Status: A and O x3 Pain: Denies pain currently ROM: Right Upper Extremity: Shoulder flexion 80 degrees. Elbow motion is within functional limits. Patient able to demonstrate full mine patrol, although only 50% hand opening actively; passively he is able to achieve good functional opening of the hand. Left Upper Extremity: Shoulder flexion 80 degrees. Elbow motion is within functional limits. Patient able to demonstrate full mine patrol, although only 50% hand opening actively; passively he is able to achieve good functional opening of the hand. Right Lower Extremity: Patient has approximately 15-20 degree knee flexion contracture. Demonstrates ankle dorsiflexion to 0 degrees. Left Lower Extremity: Patient has approximately 15-20 degree knee flexion contracture. Demonstrates ankle dorsiflexion to 0 degrees. Strength: Right Upper Extremity: Shoulder flexion 3-/5. Biceps 4+/5. Triceps 4-/5. Cardiology Tech is weak but equal. Left Upper Extremity: Shoulder flexion 3-/5. Biceps 4+/5. Triceps 4-/5. Cardiology Tech is weak but equal. Right Lower Extremity: Hip flexion 4+/5. Quads 4+/5. Hamstrings 4/5. Ankle dorsiflexion 3/5. Left Lower Extremity: Hip flexion 4+/5. Quads 4+/5. Hamstrings 4/5. Ankle dorsiflexion 3/5. Bed Mobility/Transfers: Supine to sit: Min assist with head of bed at 30 degrees Sit to stand: CG Stand to sit: CG Bed to chair: Refused Gait: Patient performed sidestepping x3 steps with upper extremity support to wheeled walker and CG. He declines further ambulation. Balance: Static Sitting: Normal Dynamic Sitting: Normal Static Standing: Fair Dynamic Standing: Fair Special Tests: Mobility Limitations Standardized Measure [facility] AM-PAC 6 clicks Basic Mobility Inpatient Short Form: Raw Score: 14 standardized Score: 38.1 CMS Score: 61% [facility] Modifier: CL Informed Consent/Education: Patient instructed in purpose of PT consult and plan of care. Assessment: Patient is a 57 year old male referred to physical therapy services with the diagnosis of toxic metabolic encephalopathy. Patient presents with clinical signs and symptoms consistent with diminished mobility related to acute medical issues. Patient does have chronic mobility deficits, and resides in a long-term care facility, where he requires assistance with all ambulation and self-care. PT goals will be targeted at maximizing patient's mobility and strength to allow for safe transition back to long-term care facility. He currently demonstrates the following impairment level findings: 1. Decreased lower extremity strength 2. Decreased upper extremity strength 3. Decreased activity tolerance 4. Decreased range of motion bilateral knees and hands Impairments are contributing to the following functional limitations: 1. Unable to tolerate short distance ambulation 2. Patient requiring assistance with bed mobility 3. Decreased activity tolerance 4. Decreased safety with transfers [facility] score 61% deficit Patient is assessed as High [id number] complexity based on the following: History: Diminished mobility due to acute medical issues and 57-year-old male with complicated medical history and gradual decline in independence and mobility. Patient has been residing in a long-term care facility for the past 5 years, and admits to limited mobility in that setting. He also struggles with multiple areas of joint pain related to RA, multiple wounds in various stages of healing, and history of significant cardiac and GI issues. Full medical history can be found noted above. Examination: Functional limitations as noted above Presentation: Unstable Decision Making: High complexity Goals: Goals X1 week 1. Supine-Sit independent 2. Sit-Supine independent 3. Sit-Stand CG with upper extremity support to wheeled walker 4. Stand-Sit CG 5. Bed-Chair min assist with WW 6. Chair-Bed min assist with WW 7. Gait: 10' with WW and min A Plan of Care/Treatment Plan: 1-2x/day, 7 days/week x 1 week. Plan of care has been reviewed with the [employer] QUALITY CONSULT[employer] providing the service under Physical Therapy direction. Initiate Physical Therapy intervention for strengthening, bed mobility, transfers, gait, stairs, balance training, use of assistive device. DISCHARGE RECOMMENDATIONS: Return to the [facility] with no equipment needs anticipated TREATMENT CODE/TIME: 20 minutes (05579) G Codes in the area mobility of walking and moving around: current status [id number] CL; projected status GP [id number]. Discharge status (if discharging) GP [id number] CL. Thank you for this referral. Carrol Mora, PT, DPT
[2018-03-05] MEDS: Normal Saline 500 ML 100 ML IV (16:17)
[2018-03-05] MEDS: VANCOMYCIN 1,000 MG in Normal Saline 250 ML 250 MG IV (17:02)
[2018-03-05] MEDS: Terazosin 2 MG CAP 4 MG PO (19:41)
[2018-03-05] MEDS: Ascorbic Acid 500 MG TAB PO (19:41)
[2018-03-05] MEDS: Magnesium Chloride 64 MG TABCR PO (19:41)
[2018-03-05] MEDS: Ferrous Sulfate 325 MG TAB PO (19:41)
[2018-03-05] MEDS: Aspirin E.C. 81 MG TABEC PO (19:41)
--- NOTE | 2018-03-05 19:51 | PGE_ITS ---
Date of Service Date of service: 03/05/18 Time of Service: 17:35 Assessment and Plan (1) Toxic metabolic encephalopathy: Current visit: No Status: Resolved Recurrent and accompanied by hypothermia and hyponatremia, reflective of acute on chronic adrenal insufficiency. Treat infection, continue the same dose of steroids tomorrow in anticipation of surgery. Cholecystostomy drain not changed - per IR, there would not have been a benefit to it from the stand point of decreasing infection risk, as long as it keeps draining. (2) HCAP (healthcare-associated pneumonia): Current visit: No Status: Resolved Improving clinically. Finished 5 days of vancomycin and zosyn. Blood cx x 2 with NGTD Repeat CXR negative. (3) Hyperglycemia: Current visit: No Status: Acute Continue basal bolus insulin (no change in long acting insulin as, again, NPO after midnight) (4) MRSA bacteremia: Current visit: No Status: Resolved Continue vancomycin. from prior admission. Blood cultures with NGTD (5) Acute on chronic kidney failure: Current visit: No Status: Acute Continue lasix (6) Diabetic foot ulcer: Current visit: No Status: Chronic For OR tomorrow - as now has OM R 5th metatarsal (7) Poorly controlled type 2 diabetes mellitus with circulatory disorder: Current visit: No Status: Chronic As above (8) Adrenal insufficiency: Current visit: No Status: Acute Acute on chronic. Continue IV hydrocortisone (9) Dehydration: Current visit: No Status: Resolved Continue lasix (10) DVT prophylaxis: Current visit: No Status: Acute SQ heparin (11) Discharge planning issues: Current visit: No Status: Acute Remains full code. (12) 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 2 diabetes mellitus: Current visit: Yes Status: Acute Subjective Interval history since last seen: The patient had his cholecystostomy tube interrogated today but not exchanged. He states he had no discomfort with the procedure. He denies dizziness, chest pain, shortness of breath, nausea, vomiting. He is going to the OR tomorrow with Dr Ashford for an I&D of R 5th metatarsal. Exam Narrative Exam Narrative: General: Middle Aged male, awake, eating dinner, asking appropriate questions. HEENT: EOMI, MMM, poor dentition Cardiovascular: RRR, no m/r/g Lungs: CTAB Gastrointestinal: abdomen soft; cholecystostomy drain capped; ileostomy site clean, dry, intact Extremities: trace edema of BLE's, no clubbing, or cyanosis of BLE's; 1+ pedal pulses bilaterally; B feet are dressed Objective Objective Clinical Data: Abnormal lab results 03/05/18 03/05/18 Range/Units 13:12 13:12 RBC 4.05 L (4.50-6.00) m/cumm Hgb 9.5 L (13.5-17.5) g/dL Hct 30.0 L (40.0-50.0) % MCV 74.1 L (80-95) fL MCH 23.5 L (27.0-33.0) pg MCHC 31.7 L (32.0-36.0) g/dL RDW 20.3 H (11.8-14.1) % Plt Count 405 H (130-400) x1000/uL Absolute Neutrophils 7.40 H (1.2-6.7) k/cumm Absolute Lymphocytes 0.99 L (1.2-3.4) k/cumm Chloride 108 H (98-107) mmol/L Carbon Dioxide 19.4 L (21.0-32.0) mmol/L Anion Gap 11.6 H (3-11) mmol/L BUN 41 H (7-18) mg/dL Creatinine 2.66 H (0.70-1.30) mg/dL Glucose 277 H (70-100) mg/dL Vital Signs Temperature 36.9 C 03/05/18 16:45 Temperature Source Tympanic 03/05/18 16:45 Pulse 53 L 03/05/18 16:45 Pulse Rhythm Regular 03/05/18 12:45 Pulse 66 03/01/18 10:10 Respiratory Rate 20 03/05/18 16:45 Respiratory Effort Non-Labored 03/05/18 12:45 Respiratory Depth Normal 03/05/18 12:45 Respiratory Pattern Normal 03/05/18 12:45 Blood Pressure 134/76 03/05/18 16:45 Blood Pressure Mean 86 03/01/18 10:01 Blood Pressure Position Supine 03/01/18 09:11 Pulse Oximetry 95 03/05/18 16:45 Oxygen Delivery Method Room Air 03/05/18 16:45 Oxygen Flow Rate 0 03/05/18 16:45 Pain Level 0 03/05/18 16:45 Comment 03/05/18 07:35 Intake & Output 03/04/18 03/05/18 03/05/18 23:59 11:59 23:59 Intake Total 870 / 1480 1300.000 / 1300.000 Output Total 1825 / 3485 2540 / 3340 800 / 3340 Balance -955 / -2005 -2540 / -2040.000 500.000 / -2040.000 Weight 100.3 kg Intake: IV 150 / 280 510.000 / 510.000 Oral 720 / 1200 790 / 790 Output: Drainage 425 / 810 390 / 390 Right Upper Abdomen 425 / 810 390 / 390 Urine 650 / 1350 1050 / 1250 200 / 1250 Stool 750 / 1325 1100 / 1700 600 / 1700 Other: Urine Color Yellow Yellow Straw Urine Appearance Clear Clear Clear Urine Odor None Strong Comment Void x1 in the urinal. Stool Size Moderate Stool Characteristics Soft Brown Voiding Methods Urinal Urinal Urinal Laboratory Results WBC 9.28 k/cumm (4.4-10.8) 03/05/18 13:12 RBC 4.05 m/cumm (4.50-6.00) L 03/05/18 13:12 Hgb 9.5 g/dL (13.5-17.5) L 03/05/18 13:12 Hct 30.0 % (40.0-50.0) L 03/05/18 13:12 MCV 74.1 fL (80-95) L 03/05/18 13:12 MCH 23.5 pg (27.0-33.0) L 03/05/18 13:12 MCHC 31.7 g/dL (32.0-36.0) L 03/05/18 13:12 RDW 20.3 % (11.8-14.1) H 03/05/18 13:12 Plt Count 405 x1000/uL (130-400) H 03/05/18 13:12 MPV 9.8 fL (8.0-11.0) 03/05/18 13:12 Abs Immat Gran (auto) Cancelled 03/05/18 05:35 Immature Gran % 1.2 03/05/18 13:12 Neutrophils % 79.7 03/05/18 13:12 Lymphocytes % 10.7 03/05/18 13:12 Monocytes % 5.4 03/05/18 13:12 Eosinophils % 2.6 03/05/18 13:12 Basophils % 0.4 03/05/18 13:12 Absolute Neutrophils 7.40 k/cumm (1.2-6.7) H 03/05/18 13:12 Band Neutrophils Cancelled 03/05/18 05:35 Absolute Lymphocytes 0.99 k/cumm (1.2-3.4) L 03/05/18 13:12 Absolute Monocytes 0.50 k/cumm (0.11-0.7) 03/05/18 13:12 Absolute Eosinophils 0.24 k/cumm (0.0-0.7) 03/05/18 13:12 Absolute Basophils 0.04 k/cumm (0.0-0.2) 03/05/18 13:12 Metamyelocytes Cancelled 03/05/18 05:35 Myelocytes Cancelled 03/05/18 05:35 Promyelocytes Cancelled 03/05/18 05:35 Nucleated RBCs Cancelled 03/05/18 05:35 Differential Comment Rbc morph reviewed 03/02/18 07:00 Atypical Lymphocytes Cancelled 03/05/18 05:35 Other Cell Type Cancelled 03/05/18 05:35 RBC Morphology See below 03/02/18 07:00 Polychromasia Present 03/02/18 07:00 Hypochromasia 3+ 03/02/18 07:00 Poikilocytosis 2+ 03/02/18 07:00 Basophilic Stippling Cancelled 03/05/18 05:35 Anisocytosis 3+ 03/02/18 07:00 Microcytosis 3+ 03/02/18 07:00 Macrocytosis Cancelled 03/05/18 05:35 Spherocytes Cancelled 03/05/18 05:35 Target Cells Cancelled 03/05/18 05:35 Tear Drop Cells 2+ 03/01/18 09:38 Ovalocytes 2+ 03/02/18 07:00 Stomatocytes Cancelled 03/05/18 05:35 Glover-Bigelow Bodies Cancelled 03/05/18 05:35 Sathya Cells Cancelled 03/05/18 05:35 Acanthocytes (Spur) Cancelled 03/05/18 05:35 Schistocytes Cancelled 03/05/18 05:35 PT 9.6 sec (9.3-11.0) 03/05/18 13:12 INR 1.0 (0.9-1.1) 03/05/18 13:12 Sodium 139 mmol/L (136-145) 03/05/18 13:12 Potassium 4.5 mmol/L (3.5-5.1) 03/05/18 13:12 Chloride 108 mmol/L (98-107) H 03/05/18 13:12 Carbon Dioxide 19.4 mmol/L (21.0-32.0) L 03/05/18 13:12 Anion Gap 11.6 mmol/L (3-11) H 03/05/18 13:12 BUN 41 mg/dL (7-18) H 03/05/18 13:12 Creatinine 2.66 mg/dL (0.70-1.30) H 03/05/18 13:12 Estimated GFR/1.73 m2 24.82 (mL/min/1.73m2) 03/05/18 13:12 Glucose 277 mg/dL (70-100) H 03/05/18 13:12 Lactate 1.1 mmol/L (0.6-1.4) 03/02/18 07:00 Calcium 8.9 mg/dL (8.5-10.1) 03/05/18 13:12 Magnesium 2.2 mg/dL (1.8-2.4) 03/05/18 13:12 Total Bilirubin 0.2 mg/dL (0.2-1.0) 03/01/18 09:38 Conjugated Bilirubin 0.08 mg/dL (0.00-0.20) 03/01/18 09:38 AST 3 U/L (15-37) L 03/01/18 09:38 ALT 13 U/L (12-78) 03/01/18 09:38 Alkaline Phosphatase 273 U/L (46-116) H 03/01/18 09:38 Total Protein 7.1 g/dL (6.4-8.2) 03/01/18 09:38 Albumin 2.3 g/dL (3.4-5.0) L 03/01/18 09:38 TSH 0.61 uIU/mL (0.358-3.74) 03/02/18 07:00 Urine Color Yellow (Yellow) 03/04/18 14:20 Urine Clarity Clear 03/04/18 14:20 Urine pH 6.0 (5-8) 03/04/18 14:20 Ur Specific [place] 1.020 (1.005-1.025) 03/04/18 14:20 Urine Protein 30 mg/dL (Negative) H 03/04/18 14:20 Urine Ketones Negative mg/dL (Negative) 03/04/18 14:20 Urine Blood Trace-intact (Negative) H 03/04/18 14:20 Urine Nitrite Negative (Negative) 03/04/18 14:20 Urine Bilirubin Negative (Negative) 03/04/18 14:20 Urine Urobilinogen 0.2 EU/dL (Up TO 0.2) 03/04/18 14:20 Ur Leukocyte Esterase Small (Negative) H 03/04/18 14:20 Urine RBC 3-5 (0-2) H 03/04/18 14:20 Urine WBC >50 HPF (0-5) 03/04/18 14:20 Ur Epithelial Cells Negative HPF (Negative) 03/04/18 14:20 Urine Crystals Few amorphous HPF (Negative) 03/04/18 14:20 Urine Bacteria Moderate HPF (Negative) 03/04/18 14:20 Urine Casts 3-5 coarse granular LPF (Negative) 03/04/18 14:20 Urine Mucus Negative (Negative) 03/04/18 14:20 Urine Other Moderate yeast (Negative) 03/04/18 14:20 Ur Culture Indicated? C&s done as ordered 03/04/18 14:20 Urine Glucose Negative mg/dL (Negative) 03/04/18 14:20 Vancomycin Trough 30.9 ug/mL (10.0-20.0) H* 03/04/18 15:55
[2018-03-05] MEDS: traZODone 50 MG TAB PO (22:25)
[2018-03-05] MEDS: risperiDONE 1 MG TAB 3 MG PO (22:25)
[2018-03-05] MEDS: Insulin Glargine 300 UNITS/3 ML PEN 45 UNITS SC (22:26)
[2018-03-05] MEDS: Melatonin 3 MG TAB 9 MG PO (23:35)
[2018-03-06] MEDS: Hydrocortisone SOD SUC. 100 MG VIAL 50 MG IV ×4 (03:48→21:57)
[2018-03-06] MEDS: PIPERACILLIN/TAZO 2.25 GM in Normal Saline 50 ML IVPB ×4 (03:48→21:57)
[2018-03-06 04:37] VITALS: BP 122/63; PULSE 55; RESP 16; TEMP 36.6; O2SAT 98
[2018-03-06 04:39] VITALS: O2SAT 98
[2018-03-06] MEDS: Levothyroxine 75 MCG TAB 37.5 MCG PO (05:42)
[2018-03-06 08:35] VITALS: BP 138/75; PULSE 61; RESP 20; TEMP 36.7; O2SAT 95
[2018-03-06] MEDS: Magnesium Chloride 64 MG TABCR PO ×2 (10:02→20:47)
[2018-03-06] MEDS: Venlafaxine 37.5 MG CAPCR 75 MG PO (10:02)
[2018-03-06] MEDS: Terazosin 2 MG CAP 4 MG PO ×2 (10:02→20:47)
[2018-03-06] MEDS: Gabapentin 300 MG CAP PO ×3 (10:02→20:47)
[2018-03-06] MEDS: Metoprolol CR 25 MG TABCR PO (10:03)
[2018-03-06] MEDS: carBAMazepine 100 MG CHEW PO ×3 (10:03→20:47)
[2018-03-06] MEDS: amLODIPine 5 MG TAB 10 MG PO (10:03)
[2018-03-06] MEDS: Folic Acid 1 MG TAB PO (10:03)
[2018-03-06] MEDS: Multivitamin TAB 1 TAB PO (10:03)
[2018-03-06] MEDS: Ascorbic Acid 500 MG TAB PO ×2 (10:03→20:47)
[2018-03-06] MEDS: Omeprazole 20 MG CAPCR PO (10:03)
[2018-03-06] MEDS: Ferrous Sulfate 325 MG TAB PO ×2 (10:03→20:47)
[2018-03-06] MEDS: Aspirin E.C. 81 MG TABEC PO ×2 (10:03→20:47)
--- NOTE | 2018-03-06 10:03 | OT.INTREAT ---
Date of service: 03/06/18 Time of Service: 08:05 Occupational Therapy Notes Occupational Therapy Inpatient Treatment Note Date: 03/06/18 PRECAUTIONS: Standard SUBJECTIVE: Pt was lying in bed when OT arrived. He was agreeable to OT session. He states that he is currently NPO due to surgery today and that he believes he will be going home Friday. OBJECTIVE: PAIN:no c/o pain. FUNCTIONAL MOBILITY Supine-sit: Min vc (I) Sit-supine: Min vc (I) BATHING: Sitting in bed with min vc Upper Body: With bathing wipe pt was able to (I) wash (B) hands, use his (L) UE to wash his (R) UE, (I) wash his neck and face and (L) Ear. Lower Body: Pt can only actively reach to his upper thighs at this time but demonstrated increased grasp and release technique and (B) arm control in the frontal plane. 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 ASSESSMENT: Pt demonstrated increased improvements in bathing routine. He still is having difficulty with movements of (B) UE out of the frontal plane and fine motor control of (B) hands. Pt would benefit from continued skilled OT intervention for progression of (I) in bathing routine and increased (I) in functional gross and fine motor control during eating routine. PLAN: Progression of UE strengthening and AROM Increased education and training in bathing routine OT recommends that pt return to [facility] when medically cleared per MD. TREATMENT CODES/TIME: Self Carex2, 32 minutes (08:05) [facility]
[2018-03-06] MEDS: hydrALAZINE 10 MG TAB PO ×3 (10:04→20:47)
[2018-03-06] MEDS: Insulin Aspart 300 UNITS/3 ML PEN 10 UNITS SC ×2 (10:04→17:07)
[2018-03-06] MEDS: Furosemide 40 MG TAB PO (10:04)
[2018-03-06] MEDS: Cyanocobalamin 500 MCG TAB 1000 MCG PO (10:04)
[2018-03-06] MEDS: cloNIDine 0.1 MG TAB 0.3 MG PO ×3 (10:04→20:47)
--- NOTE | 2018-03-06 10:12 | OTTR_ITS ---
Date of service: 03/06/18 Time of Service: 08:05 Occupational Therapy Notes Occupational Therapy Inpatient Treatment Note Date: 03/06/18 PRECAUTIONS: Standard SUBJECTIVE: Pt was lying in bed when OT arrived. He was agreeable to OT session. He states that he is currently NPO due to surgery today and that he believes he will be going home Friday. OBJECTIVE: PAIN:no c/o pain. FUNCTIONAL MOBILITY Supine-sit: Min vc (I) Sit-supine: Min vc (I) BATHING: Sitting in bed with min vc Upper Body: With bathing wipe pt was able to (I) wash (B) hands, use his (L) UE to wash his (R) UE, (I) wash his neck and face and (L) Ear. Lower Body: Pt can only actively reach to his upper thighs at this time but demonstrated increased grasp and release technique and (B) arm control in the frontal plane. THEREX: Pt performed blue foam cube squeezes to increase pts (B) hand supervisor paper testing 20x each hand. ASSESSMENT: Pt demonstrated increased improvements in bathing routine. He still is having difficulty with movements of (B) UE out of the frontal plane and fine motor control of (B) hands. Pt would benefit from continued skilled OT intervention for progression of (I) in bathing routine and increased (I) in functional gross and fine motor control during eating routine. PLAN: Progression of UE strengthening and AROM Increased education and training in bathing routine OT recommends that pt return to [facility] when medically cleared per MD. TREATMENT CODES/TIME: Self Carex2, 32 minutes (08:05) [facility]
[2018-03-06] MEDS: Normal Saline Flush 10 ML SYR IVP ×3 (10:23→17:30)
--- NOTE | 2018-03-06 10:48 | PDOC.CMPRO ---
Care Management Progress Note S/O: Brendna will be brought to the OR for toe debriedment with Dr. Ashford today. He went to [facility] yesterday where his T-tube was interogated though not replaced. CM updated Isela at the [facility] and faxed updated clinicals. He will continue to be treated and monitored at this time and return to the [facility] when ready per MD. No change to overall plan. A: 57 year old male admitted to [facility] 03/01/18 for Hyperglycemia, encephalopathy, suspected sepsis, pneumonia P: CM will continue to monitor clinical progress and support discharge planning considerations, he will return to the [facility]-when ready per MD. He will transport via W/C Van coordinated by this bid writer.
--- NOTE | 2018-03-06 10:54 | CMPROGNOTE_ITS ---
Care Management Progress Note S/O: Brendan will be brought to the OR for toe debriedment with Dr. Ashford today. He went [place] [facility] [place] where his T-tube was interogated though not replaced. CM updated Isela at the [facility] and faxed updated clinicals. He will continue to be treated and monitored at this time and return to the [facility] when ready per MD. No change to overall plan. A: 57 year old male admitted to [facility] 03/01/18 for Hyperglycemia, encephalopathy, suspected sepsis, pneumonia P: CM will continue to monitor clinical progress and support discharge planning considerations, he will return to the [facility]-his residence-when ready per MD. He will transport via W/C Van coordinated by this bond underwriter.
[2018-03-06 11:45] VITALS: BP 123/70; PULSE 72; RESP 20; TEMP 36.8; O2SAT 97
[2018-03-06] MEDS: Normal Saline 1,000 ML 75 ML IV (12:30)
--- NOTE | 2018-03-06 12:55 | BONE_PTH ---
PATIENT: CARMITA ROMAN LOC: U#:[id number] AGE/SX: 57/M ROOM: 214 RE03/01/[address]: Ariel Bravo : 1960 BED: A DIS: 03/24/2018 SPEC #: [id number] RECD: 03/06/18 17:39 STATUS: DALIA REQ #: [id number] SEA: 03/06/18 12:[address]: Priscila Canela DEPT: Surgical Specimen RECD BY: Pau Thomason ENTERED: 03/06/18 17:41 SP TYPE: Bone OTHR DR: Anne Horowitz MD, DC MD Dejon Sandoval Craig S Tissues: 1 - BONE BX/CURRETTE NOT PATH FRACTURE Procedures: GROSS AND MICRO LEVEL 3 DECALCIFICATION Comments: [id number]
[2018-03-06] MEDS: Bupivacaine 0.5% Pres-Free 30 ML VIAL (13:16)
[2018-03-06 13:30] VITALS: BP 147/76; PULSE 60; RESP 20; TEMP 35.9; O2SAT 98
--- NOTE | 2018-03-06 14:03 | ROE_ITS ---
DATE OF PROCEDURE: March 06, 2018 PREOPERATIVE DIAGNOSIS: Chronic diabetic ulceration with radiologic evidence of osteomyelitis right fifth metatarsal phalangeal joint. POSTOPERATIVE DIAGNOSIS: Same. PROCEDURE: Debridement of wound, including bone, right foot, fifth MPJ area. SURGEON: Alberto CuiPElif. ANESTHESIA: Monitored Anesthesia Care; local block of the fifth ray utilizing 10 cc's 50/50 mixture 1% Lidocaine with epinephrine, 0.5% Marcaine plain. ANESTHESIA PROVIDER: Gaurav Zacarias CRNA and Ellen King CRNA OPERATIVE INDICATIONS: 57-year-old male with multiple comorbidities, diabetic ulcer affecting the [facility] fifth MPJ for surgical debridement. The wound has failed to heal in spite of non-weightbearing a nd appropriate management. Recent radiologic evidence suggests osteomyelitis. He is being brought t o the OR for surgical debridement. Risks and complications have been disclosed, including the potent ial for pain, scarring, infection, wound dehiscence, ongoing infection requiring more proximal debrid ement, loss of the digit. Informed consent has been obtained. No promises made to the final outcome of surgery. REPORT OF OPERATION: Brendan was brought to the operative suite, placed in the supine position. The [facility] foot is prepped and draped in the usual sterile podiatric fashion utilizing Betadine. The foot w as exsanguinated after obtaining local anesthesia, and a well-padded ankle tourniquet inflated 250 mm Hg. Attention was directed to the right foot, fifth MPJ, where a dorsal incision was made lateral paralle l to the extensor digitorum longus tendon to the fifth toe. The incision was deepened in controlled depth fashion. Dissection was carried down to the joint capsule. The plantar lateral ulceration cole ears to be in contact with the joint capsule, which appears rather thin and is most-likely perforated . A dorsale midline capsulotomy was performed. Soft tissue dissection was performed. A McGlamry el evator was then inserted into the fifth MPJ and the fifth metatarsal head delivered into the wound. The bone appeared somewhat softened, slightly off-white in color. The bone was resected at its anato addy neck and the fifth metatarsal head placed on the back table. The base of the proximal phalanx wa s also resected. All rough and bony edges were rasped smooth. The plantar ulceration does communica te at this level through the sidewall. With a rongeur the ulcer was debrided until there appeared to be more solid tissue. Copious irrigation was performed. The dorsal incision was closed with #3-0 n ylon suture in a [id number]-[id number]-dyv-near pattern, interspersed by simple interrupted suture #4-0 nylon. 1/ 4 NU-Gauze with packing tape was then moistened with normal saline and packed into the ulcer soft ti ssue space. Xeroform was applied to all open areas, followed by gauze fluff compression dressings. The tourniquet was released at 24 minutes with vascularity returning immediate to all toes. Brendan lef t the OR with vital signs stable, vascular status intact. Sharp and sponge counts were correct. On the back table I obtained aerobic and anaerobic culture swabs directly from the bone of the fifth met atarsal head and base of the proximal phalanx. Once that was obtained, the bone themselves were sent to Pathology in formalin.
--- NOTE | 2018-03-06 15:03 | PT.INTREAT ---
Date of service: 03/06/18 Time of Service: 08:45 PT Notes Inpatient Physical Therapy Treatment Note [facility] Date: 03/06/18 PRECAUTIONS: Contact SUBJECTIVE: Brendan is alert and agreeable to participating in PT this morning. Brendan is agreeable to PT in afternoon, although states that he will not put weight on it as he just had a procedure performed on his toe today. OBJECTIVE: in PM, per nsg, hold weight bearing until WB status is known from surgeon. PAIN: Patient c/o buttock pain with sitting at EOB and performing bridging exercise BED MOBILITY/TRANSFERS Supine-sit: I with HOB flat Sit-supine: I with HOB 30 degrees Sit-stand: SBA Stand-sit: S GAIT: (AM session) Assistive Device: FWW Weight bearing: Full Assist: SBA Distance: 5 side steps to L THEREX: Patient completed a LE strengthening program in supine position in both AM and PM, as per flow sheet. Patient also completed functional [id number] exercise in AM. ASSESSMENT: Patient tolerated session well with minimal complaint of discomfort in buttocks with sitting at EOB and bridging exercise. Patient was pleasant throughout both sessions. He would benefit from continued gait and transfer training, as well as strengthening for improved mobility. PLAN: Continue with PT's POC TREATMENT CODE/TIME: Session 1: 30 minutes; TPx2 Session 2: 15 minutes; TP
[2018-03-06 16:17] VITALS: BP 130/69; PULSE 54; RESP 20; TEMP 36.7; O2SAT 96
[2018-03-06] MEDS: VANCOMYCIN 1,000 MG in Normal Saline 250 ML 250 MG IV (17:06)
[2018-03-06] MEDS: Insulin Aspart 300 UNITS/3 ML PEN SC ×2 (17:07→21:58)
[2018-03-06 18:09] LABS: Abs Immature Grans 0.08 k/cumm (0.0-0.09); Absolute Basophil Count 0.04 k/cumm (0.0-0.2); Absolute Eosinophil Count 0.14 k/cumm (0.0-0.7); Absolute Lymphocyte Count 1.05 k/cumm (1.2-3.4); Absolute Monocyte Count 0.47 k/cumm (0.11-0.7); Absolute Neutrophil Count 8.94 k/cumm (1.2-6.7); Basophils % 0.4; Eosinophils % 1.3; HCT 29.8 % (40.0-50.0); HGB 9.3 g/dL (13.5-17.5); Immature Grans % 0.7; Lymphocytes % 9.8; Mean Corp. HGB Concentration 31.2 g/dL (32.0-36.0); Mean Corpuscular Hemoglobin 23.2 pg (27.0-33.0); Mean Corpuscular Volume 74.3 fL (80-95); Mean Platelet Volume 10.1 fL (8.0-11.0); Monocytes % 4.4; Neutrophils % 83.4; Platelet Count 407 x1000/uL (130-400); RBC 4.01 m/cumm (4.50-6.00); RBC Distribution Width 20.4 % (11.8-14.1); White Blood Cell Count 10.72 k/cumm (4.4-10.8)
[2018-03-06 18:32] LABS: Anion Gap 11.9 mmol/L (3-11); BUN 38 mg/dL (7-18); CO2 18.1 mmol/L (21.0-32.0); CREATININE 2.82 mg/dL (0.70-1.30); Calcium 8.1 mg/dL (8.5-10.1); Chloride 108 mmol/L (98-107); Glucose 393 mg/dL (70-100); Magnesium 2.1 mg/dL (1.8-2.4); Potassium 4.5 mmol/L (3.5-5.1); Sodium 138 mmol/L (136-145)
[2018-03-06 18:36] LABS: Anisocytosis 3+; Diff Comment RBC Morph Reviewed; Microcytosis 3+
--- NOTE | 2018-03-06 21:01 | PGE_ITS ---
Date of Service Date of service: 03/06/18 Time of Service: 16:20 Assessment and Plan (1) Diabetic foot ulcer: Current visit: No Status: Chronic with OM R 5th metatarsal, s/p I&D today by Dr Ashford. Continue empiric vancomycin/zosyn, await bone culture. (2) 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 2 diabetes mellitus: Current visit: Yes Status: Acute As above (3) Chronic cholecystitis: Current visit: Yes Status: Acute Cholecystostomy drain not changed [place] [facility] [place] - per IR, there would not have been a benefit to it from the stand point of decreasing infection risk, as long as it keeps draining. (4) Toxic metabolic encephalopathy: Current visit: No Status: Resolved Recurrent and accompanied by hypothermia and hyponatremia, reflective of acute on chronic adrenal insufficiency. Treat infection, start to taper steroids tomorrow. (5) HCAP (healthcare-associated pneumonia): Current visit: No Status: Resolved Resolved. Finished 5 days of vancomycin and zosyn. Blood cx x 2 with NGTD. Sputum culture with MRSA. Repeat CXR negative. (6) Hyperglycemia: Current visit: No Status: Acute Increase basal, prandial scheduled insulin. Continue SSI. (7) MRSA bacteremia: Current visit: No Status: Resolved Remains on vancomycin via PICC. Blood cultures with NGTD (8) Acute on chronic kidney failure: Current visit: No Status: Resolved Worse. Will hold diuresis. (9) Poorly controlled type 2 diabetes mellitus with circulatory disorder: Current visit: No Status: Chronic As above (10) Adrenal insufficiency: Current visit: No Status: Acute Acute on chronic. Continue IV hydrocortisone (11) Dehydration: Current visit: No Status: Resolved Hold lasix as Cr worse (12) DVT prophylaxis: Current visit: No Status: Acute SQ heparin (13) Discharge planning issues: Current visit: No Status: Acute Remains full code. Subjective Interval history since last seen: Brendan is s/p I&D of his R 5th metatarsal today, which he tolerated well. He states he feels very tired. He denies dizziness, chest pain, shortness of breath, nausea, vomiting. Exam Narrative Exam Narrative: General: Middle Aged male, somnolent/napping, easily arousable, answering questions appropriately. Pale. HEENT: EOMI, MMM, poor dentition Cardiovascular: RRR, no m/r/g Lungs: CTAB Gastrointestinal: abdomen soft; cholecystostomy drain capped; ileostomy site clean, dry, intact Extremities: trace edema of BLE's, no clubbing, or cyanosis of BLE's; 1+ pedal pulses bilaterally; R foot freshly dressed. Objective Objective Clinical Data: Abnormal lab results 03/06/18 03/06/18 Range/Units 17:30 17:30 RBC 4.01 L (4.50-6.00) m/cumm Hgb 9.3 L (13.5-17.5) g/dL Hct 29.8 L (40.0-50.0) % MCV 74.3 L (80-95) fL MCH 23.2 L (27.0-33.0) pg MCHC 31.2 L (32.0-36.0) g/dL RDW 20.4 H (11.8-14.1) % Plt Count 407 H (130-400) x1000/uL Absolute Neutrophils 8.94 H (1.2-6.7) k/cumm Absolute Lymphocytes 1.05 L (1.2-3.4) k/cumm Chloride 108 H (98-107) mmol/L Carbon Dioxide 18.1 L (21.0-32.0) mmol/L Anion Gap 11.9 H (3-11) mmol/L BUN 38 H (7-18) mg/dL Creatinine 2.82 H (0.70-1.30) mg/dL Glucose 393 H D (70-100) mg/dL Calcium 8.1 L (8.5-10.1) mg/dL Vital Signs Temperature 36.7 C 03/06/18 16:17 Temperature Source Tympanic 03/06/18 16:17 Pulse 54 L 03/06/18 16:17 Pulse Rhythm Regular 03/06/18 08:25 Pulse 66 03/01/18 10:10 Respiratory Rate 20 03/06/18 16:17 Respiratory Effort Non-Labored 03/06/18 08:25 Respiratory Depth Normal 03/06/18 08:25 Respiratory Pattern Normal 03/06/18 08:25 Blood Pressure 130/69 03/06/18 16:17 Blood Pressure Mean 86 03/01/18 10:01 Blood Pressure Position Supine 03/01/18 09:11 Pulse Oximetry 96 03/06/18 16:17 Oxygen Delivery Method Room Air 03/06/18 16:17 Oxygen Flow Rate 0 03/06/18 16:17 Pain Level 0 03/05/18 16:45 Comment 03/05/18 07:35 Intake & Output 03/05/18 03/06/18 03/06/18 23:59 11:59 23:59 Intake Total 1363.000 / 1363.000 393.333 / 2129.583 1736.25 / 2129.583 Output Total 1450 / 3990 1575 / 2825 1250 / 2825 Balance -87.000 / -2627.000 -1181.667 / -695.417 486.25 / -695.417 Weight 100 kg Intake: IV 573.000 / 573.000 243.333 / 1019.583 776.25 / 1019.583 Oral 790 / 790 960 / 960 Injectate 150 / 150 Right Upper Abdomen 150 / 150 Output: Drainage 300 / 550 250 / 550 Right Upper Abdomen 300 / 550 250 / 550 Urine 400 / 1450 775 / 1575 800 / 1575 Stool 1050 / 2150 500 / 700 200 / 700 Other: Urine Color Yellow Yellow Yellow Urine Appearance Clear Clear Clear Urine Odor Strong None None Comment Void x1 in the urinal. Void x1 in the urinal. Void x1 in the urinal. Voiding Methods Urinal Urinal Urinal Laboratory Results WBC 10.72 k/cumm (4.4-10.8) 03/06/18 17:30 RBC 4.01 m/cumm (4.50-6.00) L 03/06/18 17:30 Hgb 9.3 g/dL (13.5-17.5) L 03/06/18 17:30 Hct 29.8 % (40.0-50.0) L 03/06/18 17:30 MCV 74.3 fL (80-95) L 03/06/18 17:30 MCH 23.2 pg (27.0-33.0) L 03/06/18 17:30 MCHC 31.2 g/dL (32.0-36.0) L 03/06/18 17:30 RDW 20.4 % (11.8-14.1) H 03/06/18 17:30 Plt Count 407 x1000/uL (130-400) H 03/06/18 17:30 MPV 10.1 fL (8.0-11.0) 03/06/18 17:30 Abs Immat Gran (auto) Cancelled 03/05/18 05:35 Immature Gran % 0.7 03/06/18 17:30 Neutrophils % 83.4 03/06/18 17:30 Lymphocytes % 9.8 03/06/18 17:30 Monocytes % 4.4 03/06/18 17:30 Eosinophils % 1.3 03/06/18 17:30 Basophils % 0.4 03/06/18 17:30 Absolute Neutrophils 8.94 k/cumm (1.2-6.7) H 03/06/18 17:30 Band Neutrophils Cancelled 03/05/18 05:35 Absolute Lymphocytes 1.05 k/cumm (1.2-3.4) L 03/06/18 17:30 Absolute Monocytes 0.47 k/cumm (0.11-0.7) 03/06/18 17:30 Absolute Eosinophils 0.14 k/cumm (0.0-0.7) 03/06/18 17:30 Absolute Basophils 0.04 k/cumm (0.0-0.2) 03/06/18 17:30 Metamyelocytes Cancelled 03/05/18 05:35 Myelocytes Cancelled 03/05/18 05:35 Promyelocytes Cancelled 03/05/18 05:35 Nucleated RBCs Cancelled 03/05/18 05:35 Differential Comment Rbc morph reviewed 03/06/18 17:30 Atypical Lymphocytes Cancelled 03/05/18 05:35 Other Cell Type Cancelled 03/05/18 05:35 RBC Morphology See below 03/06/18 17:30 Polychromasia Present 03/02/18 07:00 Hypochromasia 3+ 03/02/18 07:00 Poikilocytosis 2+ 03/02/18 07:00 Basophilic Stippling Cancelled 03/05/18 05:35 Anisocytosis 3+ 03/06/18 17:30 Microcytosis 3+ 03/06/18 17:30 Macrocytosis Cancelled 03/05/18 05:35 Spherocytes Cancelled 03/05/18 05:35 Target Cells Cancelled 03/05/18 05:35 Tear Drop Cells 2+ 03/01/18 09:38 Ovalocytes 2+ 03/02/18 07:00 Stomatocytes Cancelled 03/05/18 05:35 [place] Bodies Cancelled 03/05/18 05:35 [place] Cells Cancelled 03/05/18 05:35 Acanthocytes (Spur) Cancelled 03/05/18 05:35 Schistocytes Cancelled 03/05/18 05:35 PT 9.6 sec (9.3-11.0) 03/05/18 13:12 INR 1.0 (0.9-1.1) 03/05/18 13:12 Sodium 138 mmol/L (136-145) 03/06/18 17:30 Potassium 4.5 mmol/L (3.5-5.1) 03/06/18 17:30 Chloride 108 mmol/L (98-107) H 03/06/18 17:30 Carbon Dioxide 18.1 mmol/L (21.0-32.0) L 03/06/18 17:30 Anion Gap 11.9 mmol/L (3-11) H 03/06/18 17:30 BUN 38 mg/dL (7-18) H 03/06/18 17:30 Creatinine 2.82 mg/dL (0.70-1.30) H 03/06/18 17:30 Estimated GFR/1.73 m2 23.20 (mL/min/1.73m2) 03/06/18 17:30 Glucose 393 mg/dL (70-100) H D 03/06/18 17:30 Lactate 1.1 mmol/L (0.6-1.4) 03/02/18 07:00 Calcium 8.1 mg/dL (8.5-10.1) L 03/06/18 17:30 Magnesium 2.1 mg/dL (1.8-2.4) 03/06/18 17:30 Total Bilirubin 0.2 mg/dL (0.2-1.0) 03/01/18 09:38 Conjugated Bilirubin 0.08 mg/dL (0.00-0.20) 03/01/18 09:38 AST 3 U/L (15-37) L 03/01/18 09:38 ALT 13 U/L (12-78) 03/01/18 09:38 Alkaline Phosphatase 273 U/L (46-116) H 03/01/18 09:38 Total Protein 7.1 g/dL (6.4-8.2) 03/01/18 09:38 Albumin 2.3 g/dL (3.4-5.0) L 03/01/18 09:38 TSH 0.61 uIU/mL (0.358-3.74) 03/02/18 07:00 Urine Color Yellow (Yellow) 03/04/18 14:20 Urine Clarity Clear 03/04/18 14:20 Urine pH 6.0 (5-8) 03/04/18 14:20 Ur Specific [place] 1.020 (1.005-1.025) 03/04/18 14:20 Urine Protein 30 mg/dL (Negative) H 03/04/18 14:20 Urine Ketones Negative mg/dL (Negative) 03/04/18 14:20 Urine Blood Trace-intact (Negative) H 03/04/18 14:20 Urine Nitrite Negative (Negative) 03/04/18 14:20 Urine Bilirubin Negative (Negative) 03/04/18 14:20 Urine Urobilinogen 0.2 EU/dL (Up TO 0.2) 03/04/18 14:20 Ur Leukocyte Esterase Small (Negative) H 03/04/18 14:20 Urine RBC 3-5 (0-2) H 03/04/18 14:20 Urine WBC >50 HPF (0-5) 03/04/18 14:20 Ur Epithelial Cells Negative HPF (Negative) 03/04/18 14:20 Urine Crystals Few amorphous HPF (Negative) 03/04/18 14:20 Urine Bacteria Moderate HPF (Negative) 03/04/18 14:20 Urine Casts 3-5 coarse granular LPF (Negative) 03/04/18 14:20 Urine Mucus Negative (Negative) 03/04/18 14:20 Urine Other Moderate yeast (Negative) 03/04/18 14:20 Ur Culture Indicated? C&s done as ordered 03/04/18 14:20 Urine Glucose Negative mg/dL (Negative) 03/04/18 14:20 Vancomycin Trough 30.9 ug/mL (10.0-20.0) H* 03/04/18 15:55
[2018-03-06] MEDS: traZODone 50 MG TAB PO (21:57)
[2018-03-06] MEDS: risperiDONE 1 MG TAB 3 MG PO (21:57)
[2018-03-06] MEDS: Insulin Glargine 300 UNITS/3 ML PEN 65 UNITS SC (21:58)
[2018-03-06] MEDS: Melatonin 3 MG TAB 9 MG PO (23:34)
[2018-03-07] MEDS: Heparin 5,000 UNITS/ML VIAL 5000 UNITS SC ×3 (00:48→16:10)
[2018-03-07 00:52] VITALS: BP 126/66; PULSE 53; RESP 18; TEMP 36.9; O2SAT 96
[2018-03-07] MEDS: Normal Saline 1,000 ML 75 ML IV ×2 (02:31→16:49)
[2018-03-07] MEDS: PIPERACILLIN/TAZO 2.25 GM in Normal Saline 50 ML IVPB ×4 (04:05→22:17)
[2018-03-07] MEDS: Hydrocortisone SOD SUC. 100 MG VIAL 50 MG IV ×4 (04:05→22:17)
[2018-03-07 04:16] VITALS: BP 112/56; PULSE 66; RESP 17; TEMP 37.3; O2SAT 96
[2018-03-07] MEDS: Levothyroxine 75 MCG TAB 37.5 MCG PO (05:40)
[2018-03-07 07:20] LABS: Abs Immature Grans 0.13 k/cumm (0.0-0.09); Absolute Basophil Count 0.03 k/cumm (0.0-0.2); Absolute Eosinophil Count 0.08 k/cumm (0.0-0.7); Absolute Monocyte Count 0.36 k/cumm (0.11-0.7); Absolute Neutrophil Count 11.38 k/cumm (1.2-6.7); Basophils % 0.2; Eosinophils % 0.6; HCT 29.1 % (40.0-50.0); Lymphocytes % 4.8; Mean Corp. HGB Concentration 30.9 g/dL (32.0-36.0); Mean Corpuscular Volume 74.2 fL (80-95); Mean Platelet Volume 9.5 fL (8.0-11.0); Monocytes % 2.9; Neutrophils % 90.5; Platelet Count 422 x1000/uL (130-400); RBC 3.92 m/cumm (4.50-6.00); RBC Distribution Width 20.4 % (11.8-14.1); White Blood Cell Count 12.57 k/cumm (4.4-10.8)
[2018-03-07 07:35] LABS: Anion Gap 9.4 mmol/L (3-11); BUN 38 mg/dL (7-18); CO2 20.6 mmol/L (21.0-32.0); CREATININE 2.74 mg/dL (0.70-1.30); Calcium 8.5 mg/dL (8.5-10.1); Chloride 108 mmol/L (98-107); Estimated GFR 23.98 (mL/min/1.73m2); Glucose 289 mg/dL (70-100); Magnesium 2.1 mg/dL (1.8-2.4); Sodium 138 mmol/L (136-145)
[2018-03-07 08:46] VITALS: BP 136/68; PULSE 60; RESP 18; TEMP 36.6; O2SAT 96
[2018-03-07] MEDS: Insulin Aspart 300 UNITS/3 ML PEN 15 UNITS SC ×3 (08:56→17:23)
[2018-03-07] MEDS: Insulin Aspart 300 UNITS/3 ML PEN SC ×4 (08:56→22:17)
[2018-03-07] MEDS: Gabapentin 300 MG CAP PO ×3 (08:57→21:03)
[2018-03-07] MEDS: Folic Acid 1 MG TAB PO (08:58)
[2018-03-07] MEDS: Venlafaxine 37.5 MG CAPCR 75 MG PO (08:58)
[2018-03-07] MEDS: Metoprolol CR 25 MG TABCR PO (08:58)
[2018-03-07] MEDS: carBAMazepine 100 MG CHEW PO ×3 (08:58→21:02)
[2018-03-07] MEDS: Cyanocobalamin 500 MCG TAB 1000 MCG PO (09:00)
[2018-03-07] MEDS: hydrOXYzine HCL 25 MG TAB PO (09:01)
[2018-03-07] MEDS: Aspirin E.C. 81 MG TABEC PO ×2 (09:01→21:02)
[2018-03-07] MEDS: Acetaminophen 325 MG TAB PO (09:01)
[2018-03-07] MEDS: Terazosin 2 MG CAP 4 MG PO ×2 (09:02→21:03)
[2018-03-07] MEDS: Ferrous Sulfate 325 MG TAB PO ×2 (09:02→21:03)
[2018-03-07] MEDS: Multivitamin TAB 1 TAB PO (09:02)
[2018-03-07] MEDS: Omeprazole 20 MG CAPCR PO (09:03)
[2018-03-07] MEDS: Ascorbic Acid 500 MG TAB PO ×2 (09:03→21:03)
[2018-03-07] MEDS: cloNIDine 0.1 MG TAB 0.3 MG PO ×3 (09:03→21:03)
[2018-03-07] MEDS: hydrALAZINE 10 MG TAB PO ×3 (09:03→21:03)
[2018-03-07] MEDS: Magnesium Chloride 64 MG TABCR PO ×2 (09:04→21:03)
[2018-03-07] MEDS: amLODIPine 5 MG TAB 10 MG PO (09:04)
[2018-03-07] MEDS: Normal Saline Flush 10 ML SYR IVP ×2 (10:45→16:10)
--- NOTE | 2018-03-07 11:07 | PT.INNT ---
Date of service: 03/07/18 Time of Service: 11:07 PT Notes 03/07/18 Attempt x 2 to work with Pt. Unable to arouse. Raquel Rashid, SELF DEFENSE [employer]STRUCTOR
[2018-03-07 11:36] VITALS: BP 123/53; PULSE 55; RESP 20; TEMP 36.9; O2SAT 96
--- NOTE | 2018-03-07 12:36 | CMPROGNOTE_ITS ---
Care Management Progress Note S/O: Brendan was sleeping when CM attempted to check in with him. CM will continue keep the [facility] updated and fax updated clinicals. Brendan will continue to be treated and monitored at this time and return to the [facility] when ready per MD. No change to overall plan. A: 57 year old male admitted to [facility] 03/01/18 for Hyperglycemia, encephalopathy, suspected sepsis, pneumonia P: CM will continue to monitor clinical progress and support discharge planning considerations, he will return to the [facility]-his residence-when ready per MD. He will transport via [facility] Van coordinated by this newswriter.
--- NOTE | 2018-03-07 15:22 | W.PM.PROGNOT ---
Date of Service Date of service: 03/07/18 Time of Service: 15:22 Subjective Patient reports: no new complaints Interval history since last seen: Brendan is seen at bedside. He is resting comfortably. He has no complaints of pain in his right foot. Exam Narrative Exam Narrative: The dressings were removed from his right foot. The wound appears clean without erythema or cellulitis noted. The incision remains coapted without active signs of infection. The packing tape was removed from the ulceration and red blood was appreciated . Intraoperative cultures are pending. Gram stain showed white blood cells no organisms at this time. Right foot is otherwise warm to the touch minimal edema calf is nontender to palpation \ Assessment: 24 hours status post resection fifth MPJ right foot, debridement ulceration packed open uncomplicated. Plan: Wound is to be irrigated with 60 cc normal saline twice a day, the wound will be packed with normal saline soaked quarter inch packing tape, Xeroform, Kerlix dressing covered with a flex net. Is currently on vancomycin and Zosyn and recommend continuation pending culture reports. We will continue to follow. Objective Objective Clinical Data: Abnormal lab results 03/06/18 03/06/18 03/07/18 Range/Units 17:30 17:30 06:17 WBC (4.4-10.8) k/cumm RBC 4.01 L (4.50-6.00) m/cumm Hgb 9.3 L (13.5-17.5) g/dL Hct 29.8 L (40.0-50.0) % MCV 74.3 L (80-95) fL MCH 23.2 L (27.0-33.0) pg MCHC 31.2 L (32.0-36.0) g/dL RDW 20.4 H (11.8-14.1) % Plt Count 407 H (130-400) x1000/uL Absolute Neutrophils 8.94 H (1.2-6.7) k/cumm Absolute Lymphocytes 1.05 L (1.2-3.4) k/cumm Chloride 108 H 108 H (98-107) mmol/L Carbon Dioxide 18.1 L 20.6 L (21.0-32.0) mmol/L Anion Gap 11.9 H (3-11) mmol/L BUN 38 H 38 H (7-18) mg/dL Creatinine 2.82 H 2.74 H (0.70-1.30) mg/dL Glucose 393 H D 289 H D (70-100) mg/dL Calcium 8.1 L (8.5-10.1) mg/dL 03/07/18 Range/Units 06:17 WBC 12.57 H (4.4-10.8) k/cumm RBC 3.92 L (4.50-6.00) m/cumm Hgb 9.0 L (13.5-17.5) g/dL Hct 29.1 L (40.0-50.0) % MCV 74.2 L (80-95) fL MCH 23.0 L (27.0-33.0) pg MCHC 30.9 L (32.0-36.0) g/dL RDW 20.4 H (11.8-14.1) % Plt Count 422 H (130-400) x1000/uL Absolute Neutrophils 11.38 H (1.2-6.7) k/cumm Absolute Lymphocytes 0.60 L (1.2-3.4) k/cumm Chloride (98-107) mmol/L Carbon Dioxide (21.0-32.0) mmol/L Anion Gap (3-11) mmol/L BUN (7-18) mg/dL Creatinine (0.70-1.30) mg/dL Glucose (70-100) mg/dL Calcium (8.5-10.1) mg/dL Vital Signs Temperature 36.9 C 03/07/18 11:36 Temperature Source Tympanic 03/07/18 11:36 Pulse 55 L 03/07/18 11:36 Pulse Rhythm Regular 03/06/18 20:40 Pulse 66 03/01/18 10:10 Respiratory Rate 20 03/07/18 11:36 Respiratory Effort Non-Labored 03/06/18 20:40 Respiratory Depth Normal 03/06/18 20:40 Respiratory Pattern Normal 03/06/18 20:40 Blood Pressure 123/53 L 03/07/18 11:36 Blood Pressure Mean 86 03/01/18 10:01 Blood Pressure Position Supine 03/01/18 09:11 Pulse Oximetry 96 03/07/18 11:36 Oxygen Delivery Method Room Air 03/07/18 11:36 Oxygen Flow Rate 0 03/07/18 11:36 Pain Level 0 03/07/18 11:36 Comment 03/05/18 07:35 Intake & Output 03/06/18 03/07/18 03/07/18 18:59 06:59 18:59 Intake Total 2079.583 / 3207.083 1127.50 / 3207.083 Output Total 1500 / 3200 1700 / 3200 225 / 225 Balance 579.583 / 7.083 -572.50 / 7.083 -225 / -225 Weight 100 kg 98.4 kg Intake: IV 969.583 / 1697.083 727.50 / 1697.083 Oral 960 / 1360 400 / 1360 Injectate 150 / 150 Right Upper Abdomen 150 / 150 Output: Drainage 350 / 500 150 / 500 Right Upper Abdomen 350 / 500 150 / 500 Urine 650 / 1800 1150 / 1800 225 / 225 Stool 500 / 900 400 / 900 Other: Urine Color Yellow Yellow Yellow Urine Appearance Clear Clear Clear Urine Odor None Normal Normal Comment Void x1 in the urinal. Void x1 in the urinal. Voiding Methods Urinal Urinal Laboratory Results WBC 12.57 k/cumm (4.4-10.8) H 03/07/18 06:17 RBC 3.92 m/cumm (4.50-6.00) L 03/07/18 06:17 Hgb 9.0 g/dL (13.5-17.5) L 03/07/18 06:17 Hct 29.1 % (40.0-50.0) L 03/07/18 06:17 MCV 74.2 fL (80-95) L 03/07/18 06:17 MCH 23.0 pg (27.0-33.0) L 03/07/18 06:17 MCHC 30.9 g/dL (32.0-36.0) L 03/07/18 06:17 RDW 20.4 % (11.8-14.1) H 03/07/18 06:17 Plt Count 422 x1000/uL (130-400) H 03/07/18 06:17 MPV 9.5 fL (8.0-11.0) 03/07/18 06:17 Abs Immat Gran (auto) Cancelled 03/05/18 05:35 Immature Gran % 1.0 03/07/18 06:17 Neutrophils % 90.5 03/07/18 06:17 Lymphocytes % 4.8 03/07/18 06:17 Monocytes % 2.9 03/07/18 06:17 Eosinophils % 0.6 03/07/18 06:17 Basophils % 0.2 03/07/18 06:17 Absolute Neutrophils 11.38 k/cumm (1.2-6.7) H 03/07/18 06:17 Band Neutrophils Cancelled 03/05/18 05:35 Absolute Lymphocytes 0.60 k/cumm (1.2-3.4) L 03/07/18 06:17 Absolute Monocytes 0.36 k/cumm (0.11-0.7) 03/07/18 06:17 Absolute Eosinophils 0.08 k/cumm (0.0-0.7) 03/07/18 06:17 Absolute Basophils 0.03 k/cumm (0.0-0.2) 03/07/18 06:17 Metamyelocytes Cancelled 03/05/18 05:35 Myelocytes Cancelled 03/05/18 05:35 Promyelocytes Cancelled 03/05/18 05:35 Nucleated RBCs Cancelled 03/05/18 05:35 Differential Comment Rbc morph reviewed 03/06/18 17:30 Atypical Lymphocytes Cancelled 03/05/18 05:35 Other Cell Type Cancelled 03/05/18 05:35 RBC Morphology See below 03/06/18 17:30 Polychromasia Present 03/02/18 07:00 Hypochromasia 3+ 03/02/18 07:00 Poikilocytosis 2+ 03/02/18 07:00 Basophilic Stippling Cancelled 03/05/18 05:35 Anisocytosis 3+ 03/06/18 17:30 Microcytosis 3+ 03/06/18 17:30 Macrocytosis Cancelled 03/05/18 05:35 Spherocytes Cancelled 03/05/18 05:35 Target Cells Cancelled 03/05/18 05:35 Tear Drop Cells 2+ 03/01/18 09:38 Ovalocytes 2+ 03/02/18 07:00 Stomatocytes Cancelled 03/05/18 05:35 [place] Bodies Cancelled 03/05/18 05:35 [place] Cells Cancelled 03/05/18 05:35 Acanthocytes (Spur) Cancelled 03/05/18 05:35 Schistocytes Cancelled 03/05/18 05:35 PT 9.6 sec (9.3-11.0) 03/05/18 13:12 INR 1.0 (0.9-1.1) 03/05/18 13:12 Sodium 138 mmol/L (136-145) 03/07/18 06:17 Potassium 5.0 mmol/L (3.5-5.1) 03/07/18 06:17 Chloride 108 mmol/L (98-107) H 03/07/18 06:17 Carbon Dioxide 20.6 mmol/L (21.0-32.0) L 03/07/18 06:17 Anion Gap 9.4 mmol/L (3-11) 03/07/18 06:17 BUN 38 mg/dL (7-18) H 03/07/18 06:17 Creatinine 2.74 mg/dL (0.70-1.30) H 03/07/18 06:17 Estimated GFR/1.73 m2 23.98 (mL/min/1.73m2) 03/07/18 06:17 Glucose 289 mg/dL (70-100) H D 03/07/18 06:17 Lactate 1.1 mmol/L (0.6-1.4) 03/02/18 07:00 Calcium 8.5 mg/dL (8.5-10.1) 03/07/18 06:17 Magnesium 2.1 mg/dL (1.8-2.4) 03/07/18 06:17 Total Bilirubin 0.2 mg/dL (0.2-1.0) 03/01/18 09:38 Conjugated Bilirubin 0.08 mg/dL (0.00-0.20) 03/01/18 09:38 AST 3 U/L (15-37) L 03/01/18 09:38 ALT 13 U/L (12-78) 03/01/18 09:38 Alkaline Phosphatase 273 U/L (46-116) H 03/01/18 09:38 Total Protein 7.1 g/dL (6.4-8.2) 03/01/18 09:38 Albumin 2.3 g/dL (3.4-5.0) L 03/01/18 09:38 TSH 0.61 uIU/mL (0.358-3.74) 03/02/18 07:00 Urine Color Yellow (Yellow) 03/04/18 14:20 Urine Clarity Clear 03/04/18 14:20 Urine pH 6.0 (5-8) 03/04/18 14:20 Ur Specific [place] 1.020 (1.005-1.025) 03/04/18 14:20 Urine Protein 30 mg/dL (Negative) H 03/04/18 14:20 Urine Ketones Negative mg/dL (Negative) 03/04/18 14:20 Urine Blood Trace-intact (Negative) H 03/04/18 14:20 Urine Nitrite Negative (Negative) 03/04/18 14:20 Urine Bilirubin Negative (Negative) 03/04/18 14:20 Urine Urobilinogen 0.2 EU/dL (Up TO 0.2) 03/04/18 14:20 Ur Leukocyte Esterase Small (Negative) H 03/04/18 14:20 Urine RBC 3-5 (0-2) H 03/04/18 14:20 Urine WBC >50 HPF (0-5) 03/04/18 14:20 Ur Epithelial Cells Negative HPF (Negative) 03/04/18 14:20 Urine Crystals Few amorphous HPF (Negative) 03/04/18 14:20 Urine Bacteria Moderate HPF (Negative) 03/04/18 14:20 Urine Casts 3-5 coarse granular LPF (Negative) 03/04/18 14:20 Urine Mucus Negative (Negative) 03/04/18 14:20 Urine Other Moderate yeast (Negative) 03/04/18 14:20 Ur Culture Indicated? C&s done as ordered 03/04/18 14:20 Urine Glucose Negative mg/dL (Negative) 03/04/18 14:20 Vancomycin Trough 30.9 ug/mL (10.0-20.0) H* 03/04/18 15:55
[2018-03-07 16:10] VITALS: BP 129/64; PULSE 59; RESP 16; TEMP 37.4; O2SAT 96
[2018-03-07] MEDS: VANCOMYCIN 1,000 MG in Normal Saline 250 ML 167 MG IV (16:51)
--- NOTE | 2018-03-07 21:20 | W.PM.PROGNOT ---
Date of Service Date of service: 03/07/18 Time of Service: 21:20 Assessment and Plan (1) 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 2 diabetes mellitus: Current visit: Yes Status: Acute Non-healing diabetic foot ulcer, with xray showing evidence of potential osteo of the right 5th metatarsal. Currently on Day #8 of Pip-Tazo - also on Vancomycin for prior MRSA bacteremia. Underwent debridement with culture of the tissue via Podiatry, but thus far with negative culture results. (2) Chronic cholecystitis: Current visit: Yes Status: Acute Cholecystostomy drain was not changed at [facility] on 03/05/17 - per discussion with IR, there would not have been a benefit to it from the stand point of decreasing infection risk, as long as it keeps draining. (3) HCAP (healthcare-associated pneumonia): Current visit: No Status: Resolved S/p 5 days of therapy with Vancomycin and Pip-Tazo. Unsure if this was a true diagnosis as repeat read of CXR and repeat imaging failed to show evidence of an infiltrate. However, Sputum culture with MRSA despite the fact that patient had been on lengthy treatment with Vancomycin for MRSA bacteremia in early January. (4) MRSA bacteremia: Current visit: No Status: Resolved Remains on Vancomycin with PICC in place. (5) Acute on chronic kidney failure: Current visit: No Status: Resolved Continue hydration - patient also on daily diuretic therapy but no longer on ARYA-I. Has lengthy history of significant hyperkalemia. Monitor closely. (6) Poorly controlled type 2 diabetes mellitus with circulatory disorder: Current visit: No Status: Chronic Continue lantus, sliding scale coverage and ADA diet. (7) Adrenal insufficiency: Current visit: No Status: Chronic Continue stress dose steroids, baseline prednisone. (8) DVT prophylaxis: Current visit: No Status: Acute SC Heparin. Ensure PPI. Subjective Interval history since last seen: 57 year old resident of the [facility], with a recent history of MRSA bacteremia on IV vancomycin, admitted from [facility] Emergency Department with a diagnosis of Health Care Aquired Pneumonia. Mr. Corley was recently hospitalized here at [facility] with sepsis. He has a history of Group C strep bacteremia and E. Fecalis UTI, and following his discharge returned to the hospital septic and suffered a cardiopulmonary arrest necessitating a transfer to [facility]. He was treated for Choleycystitis, and as he is a nonsurgical candidate, he was treated conservatively with a pigtail catheter and antibiotics. He is chronically a resident at the [facility]. His other medical history includes DM, Adrenal insufficiency secondary to chronic steroid use, RA, Crohn's disease s/p Colectomy, OA, CKD with prior JESUS and resultant hyperkalemia, HTN, CAD, hypothyroidism, Obesity, and chronic pain. He's had recurrent UTIs, and also has a history of a non-healing diabetic foot ulcer. The patient was send to the ED due to worsening lethargy and hyperglycemia as noted in the [facility]. While his initial CXR showed evidence of potential pneumonia vs. edema, subsequent read and repeat imaging showed no evidence of definitive acute process. His sputum however did grow MRSA, and he has had prior recent MRSA bacteremia that he remains on Vancomycin for - he was unable to go through a KELLEE, but due to a persistent murmur is under long-term antibiotic therapy. Since admission Mr. Corley has remained on Vancomycin and Pip-Tazo, and has undergone a debridement of his wound via Podiatry, with cultures still pending. No other events reported. He remains afebrile. Exam Narrative Exam Narrative: General: Patient appears comfortable laying bed, obese, AAOX3, NAD Neck: Supple CV: Regular, nontachycardic, S1S2 Pulmonary: Clear to auscultation bilaterally, no crackles, wheezing, or rhonchi Abdomen: + Bowel Sounds, soft, nontender, nondistended, obese in contour. Vascular: B/l lower extremity edema Neurologic: CN II-XII grossly intact. No focal deficits. Psych: Normal mood and affect. Objective Objective Clinical Data: Abnormal lab results 03/07/18 03/07/18 Range/Units 06:17 06:17 WBC 12.57 H (4.4-10.8) k/cumm RBC 3.92 L (4.50-6.00) m/cumm Hgb 9.0 L (13.5-17.5) g/dL Hct 29.1 L (40.0-50.0) % MCV 74.2 L (80-95) fL MCH 23.0 L (27.0-33.0) pg MCHC 30.9 L (32.0-36.0) g/dL RDW 20.4 H (11.8-14.1) % Plt Count 422 H (130-400) x1000/uL Absolute Neutrophils 11.38 H (1.2-6.7) k/cumm Absolute Lymphocytes 0.60 L (1.2-3.4) k/cumm Chloride 108 H (98-107) mmol/L Carbon Dioxide 20.6 L (21.0-32.0) mmol/L BUN 38 H (7-18) mg/dL Creatinine 2.74 H (0.70-1.30) mg/dL Glucose 289 H D (70-100) mg/dL Vital Signs Temperature 37.4 C 03/07/18 16:10 Temperature Source Tympanic 03/07/18 16:10 Pulse 59 L 03/07/18 16:10 Pulse Rhythm Regular 03/07/18 08:45 Pulse 66 03/01/18 10:10 Respiratory Rate 16 03/07/18 16:10 Respiratory Effort Non-Labored 03/07/18 08:45 Respiratory Depth Normal 03/07/18 08:45 Respiratory Pattern Normal 03/07/18 08:45 Blood Pressure 129/64 03/07/18 16:10 Blood Pressure Mean 86 03/01/18 10:01 Blood Pressure Position Supine 03/01/18 09:11 Pulse Oximetry 96 03/07/18 16:10 Oxygen Delivery Method Room Air 03/07/18 16:10 Oxygen Flow Rate 0 03/07/18 16:10 Pain Level 0 03/07/18 11:36 Comment 03/05/18 07:35 Intake & Output 03/06/18 03/07/18 03/07/18 23:59 11:59 23:59 Intake Total 2075.00 / 2468.333 838.75 / 2261.25 1422.5 / 2261.25 Output Total 1600 / 3175 2125 / 3350 1225 / 3350 Balance 475.00 / -706.667 -1286.25 / -1088.75 197.5 / -1088.75 Weight 98.4 kg Intake: IV 1115.00 / 1358.333 438.75 / 1321.25 882.5 / 1321.25 Oral 960 / 960 400 / 940 540 / 940 Output: Drainage 250 / 550 150 / 150 Right Upper Abdomen 250 / 550 150 / 150 Urine 1150 / 1925 925 / 1350 425 / 1350 Stool 200 / 700 1050 / 1850 800 / 1850 Other: Urine Color Yellow Yellow Yellow Urine Appearance Clear Clear Urine Odor Normal Normal Comment Void x1 in the urinal. Voiding Methods Urinal Urinal Urinal Laboratory Results WBC 12.57 k/cumm (4.4-10.8) H 03/07/18 06:17 RBC 3.92 m/cumm (4.50-6.00) L 03/07/18 06:17 Hgb 9.0 g/dL (13.5-17.5) L 03/07/18 06:17 Hct 29.1 % (40.0-50.0) L 03/07/18 06:17 MCV 74.2 fL (80-95) L 03/07/18 06:17 MCH 23.0 pg (27.0-33.0) L 03/07/18 06:17 MCHC 30.9 g/dL (32.0-36.0) L 03/07/18 06:17 RDW 20.4 % (11.8-14.1) H 03/07/18 06:17 Plt Count 422 x1000/uL (130-400) H 03/07/18 06:17 MPV 9.5 fL (8.0-11.0) 03/07/18 06:17 Abs Immat Gran (auto) Cancelled 03/05/18 05:35 Immature Gran % 1.0 03/07/18 06:17 Neutrophils % 90.5 03/07/18 06:17 Lymphocytes % 4.8 03/07/18 06:17 Monocytes % 2.9 03/07/18 06:17 Eosinophils % 0.6 03/07/18 06:17 Basophils % 0.2 03/07/18 06:17 Absolute Neutrophils 11.38 k/cumm (1.2-6.7) H 03/07/18 06:17 Band Neutrophils Cancelled 03/05/18 05:35 Absolute Lymphocytes 0.60 k/cumm (1.2-3.4) L 03/07/18 06:17 Absolute Monocytes 0.36 k/cumm (0.11-0.7) 03/07/18 06:17 Absolute Eosinophils 0.08 k/cumm (0.0-0.7) 03/07/18 06:17 Absolute Basophils 0.03 k/cumm (0.0-0.2) 03/07/18 06:17 Metamyelocytes Cancelled 03/05/18 05:35 Myelocytes Cancelled 03/05/18 05:35 Promyelocytes Cancelled 03/05/18 05:35 Nucleated RBCs Cancelled 03/05/18 05:35 Differential Comment Rbc morph reviewed 03/06/18 17:30 Atypical Lymphocytes Cancelled 03/05/18 05:35 Other Cell Type Cancelled 03/05/18 05:35 RBC Morphology See below 03/06/18 17:30 Polychromasia Present 03/02/18 07:00 Hypochromasia 3+ 03/02/18 07:00 Poikilocytosis 2+ 03/02/18 07:00 Basophilic Stippling Cancelled 03/05/18 05:35 Anisocytosis 3+ 03/06/18 17:30 Microcytosis 3+ 03/06/18 17:30 Macrocytosis Cancelled 03/05/18 05:35 Spherocytes Cancelled 03/05/18 05:35 Target Cells Cancelled 03/05/18 05:35 Tear Drop Cells 2+ 03/01/18 09:38 Ovalocytes 2+ 03/02/18 07:00 Stomatocytes Cancelled 03/05/18 05:35 [place] Bodies Cancelled 03/05/18 05:35 [place] Cells Cancelled 03/05/18 05:35 Acanthocytes (Spur) Cancelled 03/05/18 05:35 Schistocytes Cancelled 03/05/18 05:35 PT 9.6 sec (9.3-11.0) 03/05/18 13:12 INR 1.0 (0.9-1.1) 03/05/18 13:12 Sodium 138 mmol/L (136-145) 03/07/18 06:17 Potassium 5.0 mmol/L (3.5-5.1) 03/07/18 06:17 Chloride 108 mmol/L (98-107) H 03/07/18 06:17 Carbon Dioxide 20.6 mmol/L (21.0-32.0) L 03/07/18 06:17 Anion Gap 9.4 mmol/L (3-11) 03/07/18 06:17 BUN 38 mg/dL (7-18) H 03/07/18 06:17 Creatinine 2.74 mg/dL (0.70-1.30) H 03/07/18 06:17 Estimated GFR/1.73 m2 23.98 (mL/min/1.73m2) 03/07/18 06:17 Glucose 289 mg/dL (70-100) H D 03/07/18 06:17 Lactate 1.1 mmol/L (0.6-1.4) 03/02/18 07:00 Calcium 8.5 mg/dL (8.5-10.1) 03/07/18 06:17 Magnesium 2.1 mg/dL (1.8-2.4) 03/07/18 06:17 Total Bilirubin 0.2 mg/dL (0.2-1.0) 03/01/18 09:38 Conjugated Bilirubin 0.08 mg/dL (0.00-0.20) 03/01/18 09:38 AST 3 U/L (15-37) L 03/01/18 09:38 ALT 13 U/L (12-78) 03/01/18 09:38 Alkaline Phosphatase 273 U/L (46-116) H 03/01/18 09:38 Total Protein 7.1 g/dL (6.4-8.2) 03/01/18 09:38 Albumin 2.3 g/dL (3.4-5.0) L 03/01/18 09:38 TSH 0.61 uIU/mL (0.358-3.74) 03/02/18 07:00 Urine Color Yellow (Yellow) 03/04/18 14:20 Urine Clarity Clear 03/04/18 14:20 Urine pH 6.0 (5-8) 03/04/18 14:20 Ur Specific [place] 1.020 (1.005-1.025) 03/04/18 14:20 Urine Protein 30 mg/dL (Negative) H 03/04/18 14:20 Urine Ketones Negative mg/dL (Negative) 03/04/18 14:20 Urine Blood Trace-intact (Negative) H 03/04/18 14:20 Urine Nitrite Negative (Negative) 03/04/18 14:20 Urine Bilirubin Negative (Negative) 03/04/18 14:20 Urine Urobilinogen 0.2 EU/dL (Up TO 0.2) 03/04/18 14:20 Ur Leukocyte Esterase Small (Negative) H 03/04/18 14:20 Urine RBC 3-5 (0-2) H 03/04/18 14:20 Urine WBC >50 HPF (0-5) 03/04/18 14:20 Ur Epithelial Cells Negative HPF (Negative) 03/04/18 14:20 Urine Crystals Few amorphous HPF (Negative) 03/04/18 14:20 Urine Bacteria Moderate HPF (Negative) 03/04/18 14:20 Urine Casts 3-5 coarse granular LPF (Negative) 03/04/18 14:20 Urine Mucus Negative (Negative) 03/04/18 14:20 Urine Other Moderate yeast (Negative) 03/04/18 14:20 Ur Culture Indicated? C&s done as ordered 03/04/18 14:20 Urine Glucose Negative mg/dL (Negative) 03/04/18 14:20 Vancomycin Trough 30.9 ug/mL (10.0-20.0) H* 03/04/18 15:55
[2018-03-07] MEDS: Insulin Glargine 300 UNITS/3 ML PEN 65 UNITS SC (22:17)
[2018-03-07] MEDS: traZODone 50 MG TAB PO (22:18)
[2018-03-07] MEDS: risperiDONE 1 MG TAB 3 MG PO (22:18)
[2018-03-07 22:25] VITALS: BP 151/75; PULSE 50; RESP 18; TEMP 36.5; O2SAT 99
[2018-03-08] VITALS (8 sets, daily range): BP systolic 142–163; BP diastolic 67–83; PULSE 52–65; RESP 18–20; TEMP 36.2–36.5; O2SAT 98–99
[2018-03-08] MEDS: Heparin 5,000 UNITS/ML VIAL 5000 UNITS SC ×3 (00:29→17:20)
[2018-03-08] MEDS: Melatonin 3 MG TAB 9 MG PO ×2 (00:29→22:41)
[2018-03-08] MEDS: PIPERACILLIN/TAZO 2.25 GM in Normal Saline 50 ML IVPB ×4 (03:33→22:44)
[2018-03-08] MEDS: Hydrocortisone SOD SUC. 100 MG VIAL 50 MG IV ×3 (03:33→22:43)
[2018-03-08] MEDS: Levothyroxine 75 MCG TAB 37.5 MCG PO (06:03)
[2018-03-08 07:20] LABS: Anion Gap 8.8 mmol/L (3-11); BUN 41 mg/dL (7-18); CO2 19.2 mmol/L (21.0-32.0); CREATININE 2.79 mg/dL (0.70-1.30); Calcium 8.7 mg/dL (8.5-10.1); Chloride 108 mmol/L (98-107); Estimated GFR 23.49 (mL/min/1.73m2); Glucose 286 mg/dL (70-100); Potassium 5.9 mmol/L (3.5-5.1); Sodium 136 mmol/L (136-145)
[2018-03-08 07:23] LABS: Abs Immature Grans 0.49 k/cumm (0.0-0.09); HCT 30.8 % (40.0-50.0); HGB 9.5 g/dL (13.5-17.5); Mean Corp. HGB Concentration 30.8 g/dL (32.0-36.0); Mean Corpuscular Hemoglobin 23.3 pg (27.0-33.0); Mean Corpuscular Volume 75.5 fL (80-95); Mean Platelet Volume 9.7 fL (8.0-11.0); Platelet Count 405 x1000/uL (130-400); RBC 4.08 m/cumm (4.50-6.00); RBC Distribution Width 20.4 % (11.8-14.1); White Blood Cell Count 11.37 k/cumm (4.4-10.8)
[2018-03-08 08:32] LABS: Absolute Eosinophil Count 0.11 k/cumm (0.0-0.7); Absolute Lymphocyte Count 0.91 k/cumm (1.2-3.4); Absolute Monocyte Count 0.23 k/cumm (0.11-0.7); Absolute Neutrophil Count 9.44 k/cumm (1.2-6.7); Diff Comment Manual Differential
[2018-03-08 08:33] LABS: Poikilocytes 2+
[2018-03-08] MEDS: Insulin Aspart 300 UNITS/3 ML PEN 15 UNITS SC ×3 (09:01→17:25)
[2018-03-08] MEDS: Insulin Aspart 300 UNITS/3 ML PEN SC ×4 (09:02→22:47)
[2018-03-08] MEDS: Venlafaxine 37.5 MG CAPCR 75 MG PO (09:03)
[2018-03-08] MEDS: Cyanocobalamin 500 MCG TAB 1000 MCG PO (09:03)
[2018-03-08] MEDS: Terazosin 2 MG CAP 4 MG PO ×2 (09:04→20:50)
[2018-03-08] MEDS: hydrALAZINE 10 MG TAB PO ×3 (09:04→20:50)
[2018-03-08] MEDS: Multivitamin TAB 1 TAB PO (09:04)
[2018-03-08] MEDS: Gabapentin 300 MG CAP PO ×3 (09:04→20:51)
[2018-03-08] MEDS: amLODIPine 5 MG TAB 10 MG PO (09:04)
[2018-03-08] MEDS: Ferrous Sulfate 325 MG TAB PO ×2 (09:04→20:51)
[2018-03-08] MEDS: Magnesium Chloride 64 MG TABCR PO ×2 (09:05→20:50)
[2018-03-08] MEDS: Omeprazole 20 MG CAPCR PO (09:05)
[2018-03-08] MEDS: cloNIDine 0.1 MG TAB 0.3 MG PO ×3 (09:06→20:50)
[2018-03-08] MEDS: hydrOXYzine HCL 25 MG TAB PO ×2 (09:06→22:43)
[2018-03-08] MEDS: Folic Acid 1 MG TAB PO (09:06)
[2018-03-08] MEDS: carBAMazepine 100 MG CHEW PO ×3 (09:07→20:51)
[2018-03-08] MEDS: Ascorbic Acid 500 MG TAB PO ×2 (09:07→20:51)
[2018-03-08] MEDS: Acetaminophen 325 MG TAB PO ×2 (09:07→22:40)
[2018-03-08] MEDS: Aspirin E.C. 81 MG TABEC PO ×2 (09:08→20:51)
[2018-03-08] MEDS: Normal Saline 1,000 ML 125 ML IV ×2 (10:54→20:50)
[2018-03-08] MEDS: Normal Saline Flush 10 ML SYR IVP ×3 (11:00→17:25)
--- NOTE | 2018-03-08 12:00 | PTTR_ITS ---
Date of service: 03/08/18 Time of Service: 11:56 PT Notes 03/08/18 SUBJECTIVE: Brendan stating he does not really want to walk with PT. He wants to go back to bed. OBJECTIVE: Pt eventually agreeable to PT treatment and post op boot fitting. TRANSFERS: Sit to stand: SBA Stand to sit: SBA Sit to supine: I GAIT: Device: FWW Weight bearing: WBAT L with post op boot in place Assist: SBA Distance 0 Deviation: Pt stood in place refusing to ambulate. He does do weight shifting left to right without complaints of pain when shifting weight to the L LE. THEREX: Performs light LE bed exercises as noted on flow sheet. ASSESSMENT: I could not motivate pt to get up to recliner today. I did fit the Post op boot and this fits well. He understands he needs to wear this when up and moving to the chair. PLAN: Continue to progress mobility and strength. Direct time: 15 minutes MILO Rashid, SUPERINTENDENT CUSTODIAN JANITOR
--- NOTE | 2018-03-08 16:02 | PDOC.CMPRO ---
Care Management Progress Note S/O: Brendan was sleeping when CM attempted to check in with him. CM will continue keep the [facility] updated and fax updated clinicals. Brendan will continue to be treated and monitored at this time and return to the [facility] when ready per MD. No change to overall plan. A: 57 year old male admitted to [facility] 03/01/18 for Hyperglycemia, encephalopathy, suspected sepsis, pneumonia P: CM will continue to monitor clinical progress and support discharge planning considerations, he will return to the [facility]-his residence-when ready per MD. He will transport via W/C Van coordinated by this film writer.
--- NOTE | 2018-03-08 16:45 | W.PM.PROGNOT ---
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 Currently on Day #9 of Pip-Tazo - also on Vancomycin for prior MRSA bacteremia. Underwent debridement with culture of the tissue via Podiatry, but thus far with negative culture results. Will discuss case further with Nuclear Equipment Sales Engineer when able. Consider further work-up with MRI if diagnosis is in doubt. (2) Chronic cholecystitis: Current visit: Yes Status: Acute Cholecystostomy drain was not changed at [facility] [place] on 03/05/17 - per discussion with IR, there would not have been a benefit to it from the stand point of decreasing infection risk, as long as the drain is functioning well and continues to drain. (3) HCAP (healthcare-associated pneumonia): Current visit: No Status: Resolved S/p 5 days of therapy with Vancomycin and Pip-Tazo. Unsure if this was a true diagnosis as repeat read of CXR and repeat imaging failed to show evidence of an infiltrate. However, Sputum culture with MRSA despite the fact that patient had been on lengthy treatment with Vancomycin for MRSA bacteremia in early January. (4) MRSA bacteremia: Current visit: No Status: Resolved Remains on Vancomycin with PICC in place. (5) Acute on chronic kidney failure: Current visit: No Status: Resolved Continue hydration - patient also on daily diuretic therapy but no longer on ARYA-I. Has lengthy history of significant hyperkalemia, and currently with worsened hyperkalemia. Medications reviewed and without obvious offending agent - initiate Kayexalate as well as a renal, low potassium diet. One additional dose of IV lasix this evening (on daily oral furosemide). Monitor closely, and for now continue IVFs as well. (6) Hyperkalemia: Current visit: No Status: Acute Treatment as above. (7) Poorly controlled type 2 diabetes mellitus with circulatory disorder: Current visit: No Status: Chronic Continue lantus, sliding scale coverage and ADA diet. (8) Adrenal insufficiency: Current visit: No Status: Chronic Continue stress dose steroids but wean today. Also on concurrent baseline prednisone. (9) DVT prophylaxis: Current visit: No Status: Acute SC Heparin. Ensure PPI. Subjective Interval history since last seen: 57 year old resident of the [facility], with a recent history of MRSA bacteremia on IV vancomycin, admitted from [facility] Emergency Department with a diagnosis of Health Care Aquired Pneumonia. Mr. Corley has been hospitalized here at [facility] with sepsis on numerous prior occasions. He has a history of Group C strep bacteremia and E. Fecalis UTI in the past, and following his discharge returned to the hospital septic and suffered a cardiopulmonary arrest necessitating a transfer to [facility] [place]. He was treated for Choleycystitis, and as he is not a surgical candidate, he was treated conservatively with a pigtail catheter and antibiotics. He is chronically a resident at the [facility]. His other medical history includes DM, Adrenal insufficiency secondary to chronic steroid use, RA, Crohn's disease s/p Colectomy, OA, CKD with prior JESUS and resultant hyperkalemia, HTN, CAD, hypothyroidism, Obesity, and chronic pain. He's had recurrent UTIs, and also has a history of a non-healing diabetic foot ulcer. The patient was send to the ED due to worsening lethargy and hyperglycemia as noted in the [facility]. While his initial CXR showed evidence of potential pneumonia vs. edema, subsequent read and repeat imaging showed no evidence of definitive acute process. His sputum however did grow MRSA - of note, he has had a recent MRSA bacteremia that he remains on Vancomycin for - he was unable to go through a KELLEE, but due to a persistent murmur is under long-term antibiotic therapy due to end soon. Since admission Mr. Corley has remained on Vancomycin and Pip-Tazo, and has undergone a debridement of his wound via Podiatry, with cultures still negative. This morning his creatinine remains stable and at baseline, but with worsening potassium, rechecked at 6. No other events reported. He remains afebrile. Exam Narrative Exam Narrative: General: Patient appears comfortable laying bed, asleep but easily arousable, obese, AAOX3, NAD Neck: Supple CV: Regular, nontachycardic, S1S2 Pulmonary: Clear to auscultation bilaterally, no crackles, wheezing, or rhonchi Abdomen: + Bowel Sounds, soft, nontender, nondistended, obese in contour. Vascular: B/l lower extremity edema Psych: Normal mood and affect. Objective Objective Clinical Data: Abnormal lab results 0103/08/18 03/08/18 Range/Units 06:15 06:15 15:20 WBC 11.37 H (4.4-10.8) k/cumm RBC 4.08 L (4.50-6.00) m/cumm Hgb 9.5 L (13.5-17.5) g/dL Hct 30.8 L (40.0-50.0) % MCV 75.5 L (80-95) fL MCH 23.3 L (27.0-33.0) pg MCHC 30.8 L (32.0-36.0) g/dL RDW 20.4 H (11.8-14.1) % Plt Count 405 H (130-400) x1000/uL Absolute Neutrophils 9.44 H (1.2-6.7) k/cumm Absolute Lymphocytes 0.91 L (1.2-3.4) k/cumm Potassium 5.9 H 6.0 H* (3.5-5.1) mmol/L Chloride 108 H (98-107) mmol/L Carbon Dioxide 19.2 L (21.0-32.0) mmol/L BUN 41 H (7-18) mg/dL Creatinine 2.79 H (0.70-1.30) mg/dL Glucose 286 H (70-100) mg/dL Vital Signs Temperature 36.5 C 03/08/18 16:13 Temperature Source Tympanic 03/08/18 16:13 Pulse 56 L 03/08/18 16:13 Pulse Rhythm Regular 03/07/18 21:00 Pulse 66 03/01/18 10:10 Respiratory Rate 20 03/08/18 16:13 Respiratory Effort Non-Labored 03/07/18 21:00 Respiratory Depth Normal 03/07/18 21:00 Respiratory Pattern Normal 03/07/18 21:00 Blood Pressure 142/67 H 03/08/18 16:13 Blood Pressure Mean 86 03/01/18 10:01 Blood Pressure Position Supine 03/01/18 09:11 Pulse Oximetry 98 03/08/18 16:13 Oxygen Delivery Method Room Air 03/08/18 16:13 Oxygen Flow Rate 0 03/08/18 16:13 Pain Level 5 03/08/18 09:07 Comment 03/05/18 07:35 Intake & Output 03/07/18 03/08/18 03/08/18 23:59 11:59 23:59 Intake Total 2065.0 / 2903.75 1303.75 / 2863.75 1560 / 2863.75 Output Total 1225 / 3350 2575 / 2700 125 / 2700 Balance 840.0 / -446.25 -1271.25 / 163.75 1435 / 163.75 Weight 99.4 kg Intake: IV 1525.0 / 1963.75 403.75 / 403.75 Oral 540 / 940 900 / 2460 1560 / 2460 Output: Drainage 425 / 425 Right Upper Abdomen 425 / 425 Urine 425 / 1350 950 / 1075 125 / 1075 Stool 800 / 1850 1200 / 1200 Other: Urine Color Yellow Yellow Yellow Urine Appearance Clear Clear Clear Urine Odor Normal Normal Voiding Methods Urinal Urinal Urinal Laboratory Results WBC 11.37 k/cumm (4.4-10.8) H 03/08/18 06:15 RBC 4.08 m/cumm (4.50-6.00) L 03/08/18 06:15 Hgb 9.5 g/dL (13.5-17.5) L 03/08/18 06:15 Hct 30.8 % (40.0-50.0) L 03/08/18 06:15 MCV 75.5 fL (80-95) L 03/08/18 06:15 MCH 23.3 pg (27.0-33.0) L 03/08/18 06:15 MCHC 30.8 g/dL (32.0-36.0) L 03/08/18 06:15 RDW 20.4 % (11.8-14.1) H 03/08/18 06:15 Plt Count 405 x1000/uL (130-400) H 03/08/18 06:15 MPV 9.7 fL (8.0-11.0) 03/08/18 06:15 Abs Immat Gran (auto) Cancelled 03/05/18 05:35 Immature Gran % See Differential 03/08/18 06:15 Neutrophils % 81.0 03/08/18 06:15 Lymphocytes % 8.0 03/08/18 06:15 Monocytes % 2.0 03/08/18 06:15 Eosinophils % 1.0 03/08/18 06:15 Basophils % 0.0 03/08/18 06:15 Absolute Neutrophils 9.44 k/cumm (1.2-6.7) H 03/08/18 06:15 Band Neutrophils 2.0 % 03/08/18 06:15 Absolute Lymphocytes 0.91 k/cumm (1.2-3.4) L 03/08/18 06:15 Absolute Monocytes 0.23 k/cumm (0.11-0.7) 03/08/18 06:15 Absolute Eosinophils 0.11 k/cumm (0.0-0.7) 03/08/18 06:15 Absolute Basophils 0.00 k/cumm (0.0-0.2) 03/08/18 06:15 Metamyelocytes 3.0 % 03/08/18 06:15 Myelocytes 3.0 % 03/08/18 06:15 Promyelocytes Cancelled 03/05/18 05:35 Nucleated RBCs Cancelled 03/05/18 05:35 Differential Comment Manual differential 03/08/18 06:15 Atypical Lymphocytes Cancelled 03/05/18 05:35 Other Cell Type Cancelled 03/05/18 05:35 RBC Morphology See below 03/08/18 06:15 Polychromasia Present 03/02/18 07:00 Hypochromasia 3+ 03/02/18 07:00 Poikilocytosis 2+ 03/08/18 06:15 Basophilic Stippling Cancelled 03/05/18 05:35 Anisocytosis 3+ 03/06/18 17:30 Microcytosis 3+ 03/06/18 17:30 Macrocytosis Cancelled 03/05/18 05:35 Spherocytes Cancelled 03/05/18 05:35 Target Cells Cancelled 03/05/18 05:35 Tear Drop Cells 2+ 03/01/18 09:38 Ovalocytes 2+ 03/02/18 07:00 Stomatocytes Cancelled 03/05/18 05:35 [place] Bodies Cancelled 03/05/18 05:35 [place] Cells Cancelled 03/05/18 05:35 Acanthocytes (Spur) Cancelled 03/05/18 05:35 Schistocytes Cancelled 03/05/18 05:35 PT 9.6 sec (9.3-11.0) 03/05/18 13:12 INR 1.0 (0.9-1.1) 03/05/18 13:12 Sodium 136 mmol/L (136-145) 03/08/18 06:15 Potassium 6.0 mmol/L (3.5-5.1) H* 03/08/18 15:20 Chloride 108 mmol/L (98-107) H 03/08/18 06:15 Carbon Dioxide 19.2 mmol/L (21.0-32.0) L 03/08/18 06:15 Anion Gap 8.8 mmol/L (3-11) 03/08/18 06:15 BUN 41 mg/dL (7-18) H 03/08/18 06:15 Creatinine 2.79 mg/dL (0.70-1.30) H 03/08/18 06:15 Estimated GFR/1.73 m2 23.49 (mL/min/1.73m2) 03/08/18 06:15 Glucose 286 mg/dL (70-100) H 03/08/18 06:15 Lactate 1.1 mmol/L (0.6-1.4) 03/02/18 07:00 Calcium 8.7 mg/dL (8.5-10.1) 03/08/18 06:15 Magnesium 2.1 mg/dL (1.8-2.4) 03/07/18 06:17 Total Bilirubin 0.2 mg/dL (0.2-1.0) 03/01/18 09:38 Conjugated Bilirubin 0.08 mg/dL (0.00-0.20) 03/01/18 09:38 AST 3 U/L (15-37) L 03/01/18 09:38 ALT 13 U/L (12-78) 03/01/18 09:38 Alkaline Phosphatase 273 U/L (46-116) H 03/01/18 09:38 Total Protein 7.1 g/dL (6.4-8.2) 03/01/18 09:38 Albumin 2.3 g/dL (3.4-5.0) L 03/01/18 09:38 TSH 0.61 uIU/mL (0.358-3.74) 03/02/18 07:00 Urine Color Yellow (Yellow) 03/04/18 14:20 Urine Clarity Clear 03/04/18 14:20 Urine pH 6.0 (5-8) 03/04/18 14:20 Ur Specific [place] 1.020 (1.005-1.025) 03/04/18 14:20 Urine Protein 30 mg/dL (Negative) H 03/04/18 14:20 Urine Ketones Negative mg/dL (Negative) 03/04/18 14:20 Urine Blood Trace-intact (Negative) H 03/04/18 14:20 Urine Nitrite Negative (Negative) 03/04/18 14:20 Urine Bilirubin Negative (Negative) 03/04/18 14:20 Urine Urobilinogen 0.2 EU/dL (Up TO 0.2) 03/04/18 14:20 Ur Leukocyte Esterase Small (Negative) H 03/04/18 14:20 Urine RBC 3-5 (0-2) H 03/04/18 14:20 Urine WBC >50 HPF (0-5) 03/04/18 14:20 Ur Epithelial Cells Negative HPF (Negative) 03/04/18 14:20 Urine Crystals Few amorphous HPF (Negative) 03/04/18 14:20 Urine Bacteria Moderate HPF (Negative) 03/04/18 14:20 Urine Casts 3-5 coarse granular LPF (Negative) 03/04/18 14:20 Urine Mucus Negative (Negative) 03/04/18 14:20 Urine Other Moderate yeast (Negative) 03/04/18 14:20 Ur Culture Indicated? C&s done as ordered 03/04/18 14:20 Urine Glucose Negative mg/dL (Negative) 03/04/18 14:20 Vancomycin Trough 30.9 ug/mL (10.0-20.0) H* 03/04/18 15:55
--- NOTE | 2018-03-08 16:55 | PGE_ITS ---
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 Currently on Day #9 of Pip-Tazo - also on Vancomycin for prior MRSA bacteremia. Underwent debridement with culture of the tissue via Podiatry, but thus far with negative culture results. Will discuss case further with Perinatal Social Worker when able. Consider further work-up with MRI if diagnosis is in doubt. (2) Chronic cholecystitis: Current visit: Yes Status: Acute [place] [facility] [place] per discussion with IR, there would not have been a benefit to it from the stand point of decreasing infection risk, as long as the drain is functioning well and continues to drain. (3) HCAP (healthcare-associated pneumonia): Current visit: No Status: Resolved S/p 5 days of therapy with Vancomycin and Pip-Tazo. Unsure if this was a true diagnosis as repeat read of CXR and repeat imaging failed to show evidence of an infiltrate. However, Sputum culture with MRSA despite the fact that patient had been on lengthy treatment with Vancomycin for MRSA bacteremia in early January. (4) MRSA bacteremia: Current visit: No Status: Resolved Remains on Vancomycin with PICC in place. (5) Acute on chronic kidney failure: Current visit: No Status: Resolved Continue hydration - patient also on daily diuretic therapy but no longer on ARYA-I. Has lengthy history of significant hyperkalemia, and currently with worsened hyperkalemia. Medications reviewed and without obvious offending agent - initiate Kayexalate as well as a renal, low potassium diet. One additional dose of IV lasix this evening (on daily oral furosemide). Monitor closely, and for now continue IVFs as well. (6) Hyperkalemia: Current visit: No Status: Acute Treatment as above. (7) Poorly controlled type 2 diabetes mellitus with circulatory disorder: Current visit: No Status: Chronic Continue lantus, sliding scale coverage and ADA diet. (8) Adrenal insufficiency: Current visit: No Status: Chronic Continue stress dose steroids but wean today. Also on concurrent baseline prednisone. (9) DVT prophylaxis: Current visit: No Status: Acute SC Heparin. Ensure PPI. Subjective Interval history since last seen: 57 year old resident of the [facility], with a recent history of MRSA bacteremia on IV vancomycin, admitted from [facility] with a diagnosis of Health Care Aquired Pneumonia. Mr. Corley has been hospitalized here at [facility] with sepsis on numerous prior occasions. He has a history of Group C strep bacteremia and E. Fecalis UTI in the past, and following his discharge returned to the hospital septic and suffered a cardiopulmonary arrest necessitating a [place] [facility] [place] He was treated for Choleycystitis, and as he is not a surgical candidate, he was treated conservatively with a pigtail catheter and antibiotics. He is chronically a resident at the [facility]. His other medical hi story includes DM, Adrenal insufficiency secondary to chronic steroid use, RA, Crohn's disease s/p Colectomy, OA, CKD with prior JESUS and resultant hyperkalemia, HTN, CAD, hypothyroidism, Obesity, and chronic pain. He's had recurrent UTIs, and also has a history of a non-healing diabetic foot ulcer. The patient was send to the ED due to worsening lethargy and hyperglycemia as noted in the Long Term. While his initial CXR showed evidence of potential pneumonia vs. edema, subsequent read and repeat imaging showed no evidence of definitive acute process. His sputum however did grow MRSA - of note, he has had a recent MRSA bacteremia that he remains on Vancomycin for - he was unable to go through a KELLEE, but due to a persistent murmur is under long-term antibiotic therapy due to end soon. Since admission Mr. Corley has remained on Vancomycin and Pip-Tazo, and has undergone a debridement of his wound via Podiatry, with cultures still negative. This morning his creatinine remains stable and at baseline, but with worsening potassium, rechecked at 6. No other events reported. He remains afebrile. Exam Narrative Exam Narrative: General: Patient appears comfortable laying bed, asleep but easily arousable, obese, AAOX3, NAD Neck: Supple CV: Regular, nontachycardic, S1S2 Pulmonary: Clear to auscultation bilaterally, no crackles, wheezing, or rhonchi Abdomen: + Bowel Sounds, soft, nontender, nondistended, obese in contour. Vascular: B/l lower extremity edema Psych: Normal mood and affect. Objective Objective Clinical Data: Abnormal lab results 03/08/18 03/08/18 03/08/18 Range/Units 06:15 06:15 15:20 WBC 11.37 H (4.4-10.8) k/cumm RBC 4.08 L (4.50-6.00) m/cumm Hgb 9.5 L (13.5-17.5) g/dL Hct 30.8 L (40.0-50.0) % MCV 75.5 L (80-95) fL MCH 23.3 L (27.0-33.0) pg MCHC 30.8 L (32.0-36.0) g/dL RDW 20.4 H (11.8-14.1) % Plt Count 405 H (130-400) x1000/uL Absolute Neutrophils 9.44 H (1.2-6.7) k/cumm Absolute Lymphocytes 0.91 L (1.2-3.4) k/cumm Potassium 5.9 H 6.0 H* (3.5-5.1) mmol/L Chloride 108 H (98-107) mmol/L Carbon Dioxide 19.2 L (21.0-32.0) mmol/L BUN 41 H (7-18) mg/dL Creatinine 2.79 H (0.70-1.30) mg/dL Glucose 286 H (70-100) mg/dL Vital Signs Temperature 36.5 C 03/08/18 16:13 Temperature Source Tympanic 03/08/18 16:13 Pulse 56 L 03/08/18 16:13 Pulse Rhythm Regular 03/07/18 21:00 Pulse 66 03/01/18 10:10 Respiratory Rate 20 03/08/18 16:13 Respiratory Effort Non-Labored 03/07/18 21:00 Respiratory Depth Normal 03/07/18 21:00 Respiratory Pattern Normal 03/07/18 21:00 Blood Pressure 142/67 H 03/08/18 16:13 Blood Pressure Mean 86 03/01/18 10:01 Blood Pressure Position Supine 03/01/18 09:11 Pulse Oximetry 98 03/08/18 16:13 Oxygen Delivery Method Room Air 03/08/18 16:13 Oxygen Flow Rate 0 03/08/18 16:13 Pain Level 5 03/08/18 09:07 Comment 03/05/18 07:35 Intake & Output 03/07/18 03/08/18 03/08/18 23:59 11:59 23:59 Intake Total 2065.0 / 2903.75 1303.75 / 2863.75 1560 / 2863.75 Output Total 1225 / 3350 2575 / 2700 125 / 2700 Balance 840.0 / -446.25 -1271.25 / 163.75 1435 / 163.75 Weight 99.4 kg Intake: IV 1525.0 / 1963.75 403.75 / 403.75 Oral 540 / 940 900 / 2460 1560 / 2460 Output: Drainage 425 / 425 Right Upper Abdomen 425 / 425 Urine 425 / 1350 950 / 1075 125 / 1075 Stool 800 / 1850 1200 / 1200 Other: Urine Color Yellow Yellow Yellow Urine Appearance Clear Clear Clear Urine Odor Normal Normal Voiding Methods Urinal Urinal Urinal Laboratory Results WBC 11.37 k/cumm (4.4-10.8) H 03/08/18 06:15 RBC 4.08 m/cumm (4.50-6.00) L 03/08/18 06:15 Hgb 9.5 g/dL (13.5-17.5) L 03/08/18 06:15 Hct 30.8 % (40.0-50.0) L 03/08/18 06:15 MCV 75.5 fL (80-95) L 03/08/18 06:15 MCH 23.3 pg (27.0-33.0) L 03/08/18 06:15 MCHC 30.8 g/dL (32.0-36.0) L 03/08/18 06:15 RDW 20.4 % (11.8-14.1) H 03/08/18 06:15 Plt Count 405 x1000/uL (130-400) H 03/08/18 06:15 MPV 9.7 fL (8.0-11.0) 03/08/18 06:15 Abs Immat Gran (auto) Cancelled 03/05/18 05:35 Immature Gran % See Differential 03/08/18 06:15 Neutrophils % 81.0 03/08/18 06:15 Lymphocytes % 8.0 03/08/18 06:15 Monocytes % 2.0 03/08/18 06:15 Eosinophils % 1.0 03/08/18 06:15 Basophils % 0.0 03/08/18 06:15 Absolute Neutrophils 9.44 k/cumm (1.2-6.7) H 03/08/18 06:15 Band Neutrophils 2.0 % 03/08/18 06:15 Absolute Lymphocytes 0.91 k/cumm (1.2-3.4) L 03/08/18 06:15 Absolute Monocytes 0.23 k/cumm (0.11-0.7) 03/08/18 06:15 Absolute Eosinophils 0.11 k/cumm (0.0-0.7) 03/08/18 06:15 Absolute Basophils 0.00 k/cumm (0.0-0.2) 03/08/18 06:15 Metamyelocytes 3.0 % 03/08/18 06:15 Myelocytes 3.0 % 03/08/18 06:15 Promyelocytes Cancelled 03/05/18 05:35 Nucleated RBCs Cancelled 03/05/18 05:35 Differential Comment Manual differential 03/08/18 06:15 Atypical Lymphocytes Cancelled 03/05/18 05:35 Other Cell Type Cancelled 03/05/18 05:35 RBC Morphology See below 03/08/18 06:15 Polychromasia Present 03/02/18 07:00 Hypochromasia 3+ 03/02/18 07:00 Poikilocytosis 2+ 03/08/18 06:15 Basophilic Stippling Cancelled 03/05/18 05:35 Anisocytosis 3+ 03/06/18 17:30 Microcytosis 3+ 03/06/18 17:30 Macrocytosis Cancelled 03/05/18 05:35 Spherocytes Cancelled 03/05/18 05:35 Target Cells Cancelled 03/05/18 05:35 Tear Drop Cells 2+ 03/01/18 09:38 Ovalocytes 2+ 03/02/18 07:00 Stomatocytes Cancelled 03/05/18 05:35 [place] Bodies Cancelled 03/05/18 05:35 [place] Cells Cancelled 03/05/18 05:35 Acanthocytes (Spur) Cancelled 03/05/18 05:35 Schistocytes Cancelled 03/05/18 05:35 PT 9.6 sec (9.3-11.0) 03/05/18 13:12 INR 1.0 (0.9-1.1) 03/05/18 13:12 Sodium 136 mmol/L (136-145) 03/08/18 06:15 Potassium 6.0 mmol/L (3.5-5.1) H* 03/08/18 15:20 Chloride 108 mmol/L (98-107) H 03/08/18 06:15 Carbon Dioxide 19.2 mmol/L (21.0-32.0) L 03/08/18 06:15 Anion Gap 8.8 mmol/L (3-11) 03/08/18 06:15 BUN 41 mg/dL (7-18) H 03/08/18 06:15 Creatinine 2.79 mg/dL (0.70-1.30) H 03/08/18 06:15 Estimated GFR/1.73 m2 23.49 (mL/min/1.73m2) 03/08/18 06:15 Glucose 286 mg/dL (70-100) H 03/08/18 06:15 Lactate 1.1 mmol/L (0.6-1.4) 03/02/18 07:00 Calcium 8.7 mg/dL (8.5-10.1) 03/08/18 06:15 Magnesium 2.1 mg/dL (1.8-2.4) 03/07/18 06:17 Total Bilirubin 0.2 mg/dL (0.2-1.0) 03/01/18 09:38 Conjugated Bilirubin 0.08 mg/dL (0.00-0.20) 03/01/18 09:38 AST 3 U/L (15-37) L 03/01/18 09:38 ALT 13 U/L (12-78) 03/01/18 09:38 Alkaline Phosphatase 273 U/L (46-116) H 03/01/18 09:38 Total Protein 7.1 g/dL (6.4-8.2) 03/01/18 09:38 Albumin 2.3 g/dL (3.4-5.0) L 03/01/18 09:38 TSH 0.61 uIU/mL (0.358-3.74) 03/02/18 07:00 Urine Color Yellow (Yellow) 03/04/18 14:20 Urine Clarity Clear 03/04/18 14:20 Urine pH 6.0 (5-8) 03/04/18 14:20 Ur Specific [place] 1.020 (1.005-1.025) 03/04/18 14:20 Urine Protein 30 mg/dL (Negative) H 03/04/18 14:20 Urine Ketones Negative mg/dL (Negative) 03/04/18 14:20 Urine Blood Trace-intact (Negative) H 03/04/18 14:20 Urine Nitrite Negative (Negative) 03/04/18 14:20 Urine Bilirubin Negative (Negative) 03/04/18 14:20 Urine Urobilinogen 0.2 EU/dL (Up TO 0.2) 03/04/18 14:20 Ur Leukocyte Esterase Small (Negative) H 03/04/18 14:20 Urine RBC 3-5 (0-2) H 03/04/18 14:20 Urine WBC >50 HPF (0-5) 03/04/18 14:20 Ur Epithelial Cells Negative HPF (Negative) 03/04/18 14:20 Urine Crystals Few amorphous HPF (Negative) 03/04/18 14:20 Urine Bacteria Moderate HPF (Negative) 03/04/18 14:20 Urine Casts 3-5 coarse granular LPF (Negative) 03/04/18 14:20 Urine Mucus Negative (Negative) 03/04/18 14:20 Urine Other Moderate yeast (Negative) 03/04/18 14:20 Ur Culture Indicated? C&s done as ordered 03/04/18 14:20 Urine Glucose Negative mg/dL (Negative) 03/04/18 14:20 Vancomycin Trough 30.9 ug/mL (10.0-20.0) H* 03/04/18 15:55
[2018-03-08] MEDS: Furosemide 20 MG/2 ML VIAL IVP (17:25)
[2018-03-08] MEDS: VANCOMYCIN 1,000 MG in Normal Saline 250 ML 167 MG IV (18:11)
[2018-03-08 21:39] LABS: Potassium 4.7 mmol/L (3.5-5.1)
[2018-03-08 21:46] LABS: Creatine Kinase 15 U/L (39-308)
[2018-03-08] MEDS: risperiDONE 1 MG TAB 3 MG PO (22:41)
[2018-03-08] MEDS: traZODone 50 MG TAB PO (22:42)
[2018-03-08] MEDS: Insulin Glargine 300 UNITS/3 ML PEN 65 UNITS SC (22:49)
[2018-03-09] VITALS (8 sets, daily range): BP systolic 137–180; BP diastolic 66–81; PULSE 52–63; RESP 19–20; TEMP 36.1–37.2; O2SAT 94–98
[2018-03-09] MEDS: Heparin 5,000 UNITS/ML VIAL 5000 UNITS SC ×4 (00:13→23:37)
[2018-03-09] MEDS: PIPERACILLIN/TAZO 2.25 GM in Normal Saline 50 ML IVPB ×2 (04:30→10:10)
[2018-03-09] MEDS: Levothyroxine 75 MCG TAB 37.5 MCG PO (05:10)
[2018-03-09] MEDS: Normal Saline 1,000 ML 125 ML IV ×2 (05:32→15:03)
[2018-03-09] MEDS: Normal Saline Flush 10 ML SYR IVP ×3 (06:59→15:10)
--- NOTE | 2018-03-09 07:24 | W.PM.PROGNOT ---
Date of Service Date of service: 03/09/18 Time of Service: 07:24 Subjective Patient reports: no new complaints Interval history since last seen: Brendan is seen at bedside. He is resting comfortably in bed. He has no complaints of pain in his lower extremities. Exam Narrative Exam Narrative: Dressings are removed from his right foot. The ulceration overlying the fifth metatarsal phalangeal joint appears clean. The packing tape upon removal was blood tinged but there was no sign of sepsis. Foot is warm to the touch with good capillary return, pulses are palpable. Chronic venous stasis changes are noted. Calves soft to palpation. Microbiology no organisms noted on Gram stain from swabs of the bone. Awaiting final pathology reports on osteomyelitis findings within the bone architecture. Impressions: 72 hours status post debridement ulceration right fifth MPJ removed with resection of the fifth MPJ. Plan: Continue current wound care. I will discontinue the packing within the wound to facilitate granulation and ultimate epithelialization. This wound is slated to heal via secondary intention. In terms of antibiotics, definitive diagnosis of osteomyelitis remains pending pathology report. I will speak with the hospitalist concerning this issue. Objective Objective Clinical Data: Abnormal lab results 03/08/18 03/08/18 03/08/18 Range/Units 06:15 06:15 15:20 WBC 11.37 H (4.4-10.8) k/cumm RBC 4.08 L (4.50-6.00) m/cumm Hgb 9.5 L (13.5-17.5) g/dL Hct 30.8 L (40.0-50.0) % MCV 75.5 L (80-95) fL MCH 23.3 L (27.0-33.0) pg MCHC 30.8 L (32.0-36.0) g/dL RDW 20.4 H (11.8-14.1) % Plt Count 405 H (130-400) x1000/uL Absolute Neutrophils 9.44 H (1.2-6.7) k/cumm Absolute Lymphocytes 0.91 L (1.2-3.4) k/cumm Potassium 5.9 H 6.0 H* (3.5-5.1) mmol/L Chloride 108 H (98-107) mmol/L Carbon Dioxide 19.2 L (21.0-32.0) mmol/L BUN 41 H (7-18) mg/dL Creatinine 2.79 H (0.70-1.30) mg/dL Glucose 286 H (70-100) mg/dL Creatine Kinase (39-308) U/L 03/08/18 Range/Units 21:20 WBC (4.4-10.8) k/cumm RBC (4.50-6.00) m/cumm Hgb (13.5-17.5) g/dL Hct (40.0-50.0) % MCV (80-95) fL MCH (27.0-33.0) pg MCHC (32.0-36.0) g/dL RDW (11.8-14.1) % Plt Count (130-400) x1000/uL Absolute Neutrophils (1.2-6.7) k/cumm Absolute Lymphocytes (1.2-3.4) k/cumm Potassium (3.5-5.1) mmol/L Chloride (98-107) mmol/L Carbon Dioxide (21.0-32.0) mmol/L BUN (7-18) mg/dL Creatinine (0.70-1.30) mg/dL Glucose (70-100) mg/dL Creatine Kinase 15 L (39-308) U/L Vital Signs Temperature 37.2 C 03/09/18 04:36 Temperature Source Tympanic 03/09/18 04:36 Pulse 52 L 03/09/18 04:36 Pulse Rhythm Regular 03/08/18 22:20 Pulse 66 03/01/18 10:10 Respiratory Rate 19 03/09/18 04:36 Respiratory Effort Non-Labored 03/08/18 22:20 Respiratory Depth Normal 03/08/18 22:20 Respiratory Pattern Normal 03/08/18 22:20 Blood Pressure 151/77 H 03/09/18 04:36 Blood Pressure Mean 86 03/01/18 10:01 Blood Pressure Position Supine 03/01/18 09:11 Pulse Oximetry 98 03/09/18 04:36 Oxygen Delivery Method Room Air 03/09/18 04:36 Oxygen Flow Rate 0 03/09/18 04:36 Pain Level 5 03/08/18 09:07 Comment 03/05/18 07:35 Intake & Output 03/08/18 03/09/18 03/09/18 18:59 06:59 18:59 Intake Total 3013.75 / 5593.750 2580.000 / 5593.750 Output Total 1200 / 4900 3700 / 4900 Balance 1813.75 / 693.750 -1120.000 / 693.750 Weight 102.8 kg Intake: IV 1453.75 / 2833.750 1380.000 / 2833.750 Oral 1560 / 2760 1200 / 2760 Output: Drainage 275 / 375 100 / 375 Right Upper Abdomen 275 / 375 100 / 375 Urine 225 / 2225 2000 / 2225 Stool 700 / 2300 1600 / 2300 Other: Urine Color Yellow Yellow Urine Appearance Clear Clear Urine Odor Normal Normal Voiding Methods Urinal Urinal Laboratory Results WBC 11.37 k/cumm (4.4-10.8) H 03/08/18 06:15 RBC 4.08 m/cumm (4.50-6.00) L 03/08/18 06:15 Hgb 9.5 g/dL (13.5-17.5) L 03/08/18 06:15 Hct 30.8 % (40.0-50.0) L 03/08/18 06:15 MCV 75.5 fL (80-95) L 03/08/18 06:15 MCH 23.3 pg (27.0-33.0) L 03/08/18 06:15 MCHC 30.8 g/dL (32.0-36.0) L 03/08/18 06:15 RDW 20.4 % (11.8-14.1) H 03/08/18 06:15 Plt Count 405 x1000/uL (130-400) H 03/08/18 06:15 MPV 9.7 fL (8.0-11.0) 03/08/18 06:15 Abs Immat Gran (auto) Cancelled 03/05/18 05:35 Immature Gran % See Differential 03/08/18 06:15 Neutrophils % 81.0 03/08/18 06:15 Lymphocytes % 8.0 03/08/18 06:15 Monocytes % 2.0 03/08/18 06:15 Eosinophils % 1.0 03/08/18 06:15 Basophils % 0.0 03/08/18 06:15 Absolute Neutrophils 9.44 k/cumm (1.2-6.7) H 03/08/18 06:15 Band Neutrophils 2.0 % 03/08/18 06:15 Absolute Lymphocytes 0.91 k/cumm (1.2-3.4) L 03/08/18 06:15 Absolute Monocytes 0.23 k/cumm (0.11-0.7) 03/08/18 06:15 Absolute Eosinophils 0.11 k/cumm (0.0-0.7) 03/08/18 06:15 Absolute Basophils 0.00 k/cumm (0.0-0.2) 03/08/18 06:15 Metamyelocytes 3.0 % 03/08/18 06:15 Myelocytes 3.0 % 03/08/18 06:15 Promyelocytes Cancelled 03/05/18 05:35 Nucleated RBCs Cancelled 03/05/18 05:35 Differential Comment Manual differential 03/08/18 06:15 Atypical Lymphocytes Cancelled 03/05/18 05:35 Other Cell Type Cancelled 03/05/18 05:35 RBC Morphology See below 03/08/18 06:15 Polychromasia Present 03/02/18 07:00 Hypochromasia 3+ 03/02/18 07:00 Poikilocytosis 2+ 03/08/18 06:15 Basophilic Stippling Cancelled 03/05/18 05:35 Anisocytosis 3+ 03/06/18 17:30 Microcytosis 3+ 03/06/18 17:30 Macrocytosis Cancelled 03/05/18 05:35 Spherocytes Cancelled 03/05/18 05:35 Target Cells Cancelled 03/05/18 05:35 Tear Drop Cells 2+ 03/01/18 09:38 Ovalocytes 2+ 03/02/18 07:00 Stomatocytes Cancelled 03/05/18 05:35 [place] Bodies Cancelled 03/05/18 05:35 [place] Cells Cancelled 03/05/18 05:35 Acanthocytes (Spur) Cancelled 03/05/18 05:35 Schistocytes Cancelled 03/05/18 05:35 PT 9.6 sec (9.3-11.0) 03/05/18 13:12 INR 1.0 (0.9-1.1) 03/05/18 13:12 Sodium 136 mmol/L (136-145) 03/08/18 06:15 Potassium 4.7 mmol/L (3.5-5.1) D 03/08/18 21:20 Chloride 108 mmol/L (98-107) H 03/08/18 06:15 Carbon Dioxide 19.2 mmol/L (21.0-32.0) L 03/08/18 06:15 Anion Gap 8.8 mmol/L (3-11) 03/08/18 06:15 BUN 41 mg/dL (7-18) H 03/08/18 06:15 Creatinine 2.79 mg/dL (0.70-1.30) H 03/08/18 06:15 Estimated GFR/1.73 m2 23.49 (mL/min/1.73m2) 03/08/18 06:15 Glucose 286 mg/dL (70-100) H 03/08/18 06:15 Lactate 1.1 mmol/L (0.6-1.4) 03/02/18 07:00 Calcium 8.7 mg/dL (8.5-10.1) 03/08/18 06:15 Magnesium 2.1 mg/dL (1.8-2.4) 03/07/18 06:17 Total Bilirubin 0.2 mg/dL (0.2-1.0) 03/01/18 09:38 Conjugated Bilirubin 0.08 mg/dL (0.00-0.20) 03/01/18 09:38 AST 3 U/L (15-37) L 03/01/18 09:38 ALT 13 U/L (12-78) 03/01/18 09:38 Alkaline Phosphatase 273 U/L (46-116) H 03/01/18 09:38 Creatine Kinase 15 U/L (39-308) L 03/08/18 21:20 Total Protein 7.1 g/dL (6.4-8.2) 03/01/18 09:38 Albumin 2.3 g/dL (3.4-5.0) L 03/01/18 09:38 TSH 0.61 uIU/mL (0.358-3.74) 03/02/18 07:00 Urine Color Yellow (Yellow) 03/04/18 14:20 Urine Clarity Clear 03/04/18 14:20 Urine pH 6.0 (5-8) 03/04/18 14:20 Ur Specific [place] 1.020 (1.005-1.025) 03/04/18 14:20 Urine Protein 30 mg/dL (Negative) H 03/04/18 14:20 Urine Ketones Negative mg/dL (Negative) 03/04/18 14:20 Urine Blood Trace-intact (Negative) H 03/04/18 14:20 Urine Nitrite Negative (Negative) 03/04/18 14:20 Urine Bilirubin Negative (Negative) 03/04/18 14:20 Urine Urobilinogen 0.2 EU/dL (Up TO 0.2) 03/04/18 14:20 Ur Leukocyte Esterase Small (Negative) H 03/04/18 14:20 Urine RBC 3-5 (0-2) H 03/04/18 14:20 Urine WBC >50 HPF (0-5) 03/04/18 14:20 Ur Epithelial Cells Negative HPF (Negative) 03/04/18 14:20 Urine Crystals Few amorphous HPF (Negative) 03/04/18 14:20 Urine Bacteria Moderate HPF (Negative) 03/04/18 14:20 Urine Casts 3-5 coarse granular LPF (Negative) 03/04/18 14:20 Urine Mucus Negative (Negative) 03/04/18 14:20 Urine Other Moderate yeast (Negative) 03/04/18 14:20 Ur Culture Indicated? C&s done as ordered 03/04/18 14:20 Urine Glucose Negative mg/dL (Negative) 03/04/18 14:20 Vancomycin Trough 30.9 ug/mL (10.0-20.0) H* 03/04/18 15:55
[2018-03-09 07:54] LABS: BUN 38 mg/dL (7-18); CREATININE 2.67 mg/dL (0.70-1.30); Calcium 8.2 mg/dL (8.5-10.1); Chloride 110 mmol/L (98-107); Estimated GFR 24.71 (mL/min/1.73m2); Glucose 187 mg/dL (70-100); Potassium 4.5 mmol/L (3.5-5.1); Sodium 139 mmol/L (136-145)
[2018-03-09] MEDS: Cyanocobalamin 500 MCG TAB 1000 MCG PO (07:59)
[2018-03-09] MEDS: Insulin Aspart 300 UNITS/3 ML PEN 15 UNITS SC ×3 (07:59→17:28)
[2018-03-09] MEDS: Insulin Aspart 300 UNITS/3 ML PEN SC ×4 (07:59→22:20)
[2018-03-09] MEDS: Metoprolol CR 25 MG TABCR PO (08:00)
[2018-03-09] MEDS: Ascorbic Acid 500 MG TAB PO ×2 (08:00→21:20)
[2018-03-09] MEDS: amLODIPine 5 MG TAB 10 MG PO (08:00)
[2018-03-09] MEDS: Magnesium Chloride 64 MG TABCR PO ×2 (08:00→21:20)
[2018-03-09] MEDS: Venlafaxine 37.5 MG CAPCR 75 MG PO (08:00)
[2018-03-09] MEDS: Gabapentin 300 MG CAP PO ×3 (08:00→21:20)
[2018-03-09] MEDS: Omeprazole 20 MG CAPCR PO (08:00)
[2018-03-09] MEDS: Ferrous Sulfate 325 MG TAB PO ×2 (08:00→21:19)
[2018-03-09] MEDS: Terazosin 2 MG CAP 4 MG PO ×2 (08:00→21:20)
[2018-03-09] MEDS: carBAMazepine 100 MG CHEW PO ×3 (08:00→21:19)
[2018-03-09] MEDS: hydrALAZINE 10 MG TAB PO ×3 (08:00→21:20)
[2018-03-09] MEDS: Folic Acid 1 MG TAB PO (08:00)
[2018-03-09] MEDS: Multivitamin TAB 1 TAB PO (08:00)
[2018-03-09] MEDS: Aspirin E.C. 81 MG TABEC PO ×2 (08:00→21:20)
[2018-03-09] MEDS: cloNIDine 0.1 MG TAB 0.3 MG PO ×3 (08:00→21:20)
[2018-03-09] MEDS: Acetaminophen 325 MG TAB PO ×2 (08:46→17:28)
[2018-03-09] MEDS: Hydrocortisone SOD SUC. 100 MG VIAL 50 MG IV ×2 (10:11→22:35)
--- NOTE | 2018-03-09 10:40 | OT.INNT ---
Date of service: 03/09/18 Time of Service: 10:30 Occupational Therapy Notes 03/09/18 OT went to see pt who was lying in bed sleeping. Pt reports that he is tired and doesn't want to participate in OT at this time. OT will check in with pt in a little while. Suzanne Javier OTR/[facility]
--- NOTE | 2018-03-09 12:21 | OT.INNT ---
Date of service: 03/09/18 Time of Service: 12:21 Occupational Therapy Notes 03/09/18 OT went to see pt who was still lying in bed sleeping. Pt verbalized to OT that he wanted to rest. OT will check in with pt tomorrow. DAVID Hi/[facility]
--- NOTE | 2018-03-09 12:35 | PT.INNT ---
Date of service: 03/09/18 Time of Service: 12:35 PT Notes 03/09/18 Patient refused morning PT session, laying in bed, with his eyes closed, not responding. Will attempt to resume PT services later today.
--- NOTE | 2018-03-09 15:15 | PT.INTREAT ---
Date of service: 03/09/18 Time of Service: 14:40 PT Notes Inpatient Physical Therapy Treatment Note [facility] Date: 03/09/18 PRECAUTIONS: contact, WBAT right with post op boot. SUBJECTIVE: Brendan was agreeable to exercises while in bed. He refuses to get OOB and ambulate or transfer to recliner. OBJECTIVE: THEREX: completed a global strengthening routine while in bed. See flowsheet for specific ex details. He did refuse to perform some of these exercises, without attempting them, stating they were too hard and hurt. ASSESSMENT: tolerated session fairly well. PLAN: will continue to progress his strength and endurance as well as functional mobility following PT POC. TREATMENT CODE/TIME: 20 min. TPx1.
[2018-03-09 16:14] LABS: Vancomycin, Trough 26.1 ug/mL (10.0-20.0)
--- NOTE | 2018-03-09 18:49 | PDOC.CMPRO ---
Care Management Progress Note S/O: Brendan was lying in bed when CM checked in with him. CM provided Brendan's direct number to his room on the board to support Brendan in leaving a message for Sole with contact information. CM will continue keep the [facility] updated and fax updated clinicals. Brendan will continue to be treated and monitored at this time and return to the [facility] when ready per MD. No change to overall plan. A: 57 year old male admitted to [facility] 03/01/18 for Hyperglycemia, encephalopathy, suspected sepsis, pneumonia P: CM will continue to monitor clinical progress and support discharge planning considerations, he will return to the [facility] residence-when ready per MD. He will transport via [employer] Van coordinated by this insurance underwriter sales.
--- NOTE | 2018-03-09 18:54 | CMPROGNOTE_ITS ---
Care Management Progress Note S/O: Brendan was lying in bed when CM checked in with him. CM provided Brendan's direct number to his room on the board to support Brendan in leaving a message for Sole with contact information. CM will continue keep the [facility] updated and fax updated clinicals. Brendan will continue to be treated and monitored at this time and return to the [facility] when ready per MD. No change to overall plan. A: 57 year old male admitted to [facility] 03/01/18 for Hyperglycemia, encephalopathy, suspected sepsis, pneumonia P: CM will continue to monitor clinical progress and support discharge planning considerations, he will return to the [facility] residence-when ready per MD. He will transport via [employer] Van coordinated by this investigative writer.
[2018-03-09] MEDS: risperiDONE 1 MG TAB 3 MG PO (21:19)
[2018-03-09] MEDS: Melatonin 3 MG TAB 9 MG PO (21:19)
[2018-03-09] MEDS: traZODone 50 MG TAB PO (21:20)
[2018-03-09] MEDS: Insulin Glargine 300 UNITS/3 ML PEN 65 UNITS SC (22:20)
--- NOTE | 2018-03-09 22:36 | W.PM.PROGNOT ---
Date of Service Date of service: 03/09/18 Time of Service: 22:36 Assessment and Plan (1) 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 2 diabetes mellitus: Current visit: Yes Status: Acute Non-healing diabetic foot ulcer, with xray showing evidence of potential osteo of the right 5th metatarsal. Currently on Day #10 of Pip-Tazo - also on Vancomycin for prior MRSA bacteremia. Underwent debridement with culture of the tissue via Podiatry, but had been with negative culture results. However, now growing MRSA from broth only of one surgical sample. Plan on discussion with ID in the morning - had planned on 6 weeks of treatment with Vanc/Ertapenem if identity was in doubt, or if suspected polymicrobial growth. (2) Chronic cholecystitis: Current visit: Yes Status: Acute [place] [facility] per discussion with IR, there would not have been a benefit to it from the stand point of decreasing infection risk, as long as the drain is functioning well and continues to drain. (3) HCAP (healthcare-associated pneumonia): Current visit: No Status: Resolved S/p 5 days of therapy with Vancomycin and Pip-Tazo. Unsure if this was a true diagnosis as repeat read of CXR and repeat imaging failed to show evidence of an infiltrate. However, Sputum culture with MRSA despite the fact that patient had been on lengthy treatment with Vancomycin for MRSA bacteremia in early January. (4) MRSA bacteremia: Current visit: No Status: Resolved Remains on Vancomycin with PICC in place. Now with Osteo of the foot which will require further 6 weeks of treatment with Vanco. (5) Acute on chronic kidney failure: Current visit: No Status: Resolved Continue gentle hydration - patient also on daily diuretic therapy but no longer on ARYA-I. Has lengthy history of significant hyperkalemia, and elevated K+ yesterday which responded well to Lasix and Kayexalate. Medications reviewed and without obvious offending agent. Monitor closely, and for now continue IVFs as well. Change to renal/low potassium diet. (6) Hyperkalemia: Current visit: No Status: Acute Treatment as above. (7) Poorly controlled type 2 diabetes mellitus with circulatory disorder: Current visit: No Status: Chronic Continue lantus, sliding scale coverage and ADA diet. (8) Adrenal insufficiency: Current visit: No Status: Chronic Continue stress dose steroids but wean today. Also on concurrent baseline prednisone. (9) DVT prophylaxis: Current visit: No Status: Acute SC Heparin. Ensure PPI. Subjective Interval history since last seen: 57 year old resident of the [facility], with a recent history of MRSA bacteremia on IV vancomycin, admitted from [facility] Emergency Department with a diagnosis of Health Care Aquired Pneumonia. Mr. Corley has been hospitalized here at [facility] with sepsis on numerous prior occasions. He has a history of Group C strep bacteremia and E. Fecalis UTI in the past, and following his discharge returned to the hospital septic and suffered a cardiopulmonary arrest necessitating a [place] [facility] He was treated for Choleycystitis, and as he is not a surgical candidate, he was treated conservatively with a pigtail catheter and antibiotics. He is chronically a resident at the [facility]. His other medical history includes DM, Adrenal insufficiency secondary to chronic steroid use, RA, Crohn's disease s/p Colectomy, OA, CKD with prior JESUS and resultant hyperkalemia, HTN, CAD, hypothyroidism, Obesity, and chronic pain. He's had recurrent UTIs, and also has a history of a non-healing diabetic foot ulcer. The patient was send to the ED due to worsening lethargy and hyperglycemia as noted in the [facility]. While his initial CXR showed evidence of potential pneumonia vs. edema, subsequent read and repeat imaging showed no evidence of definitive acute process. His sputum however did grow MRSA - of note, he has had a recent MRSA bacteremia that he remains on Vancomycin for - he was unable to go through a KELLEE, but due to a persistent murmur is under long-term antibiotic therapy due to end soon. Since admission Mr. Corley has remained on Vancomycin and Pip-Tazo, and has undergone a debridement of his wound via Podiatry, with cultures remain negative. Yesterday the patient had developed hyperkalemia despite a stable creatinine, necessitating treatment with additional lasix and Kayexalate. His potassium is normalized this morning. No other events reported. He remains afebrile. Exam Narrative Exam Narrative: General: Patient appears comfortable laying bed, asleep but easily arousable, obese, AAOX3, NAD Neck: Supple CV: Regular, nontachycardic, S1S2 Pulmonary: Clear to auscultation bilaterally, no crackles, wheezing, or rhonchi Abdomen: + Bowel Sounds, soft, nontender, nondistended, obese in contour. Vascular: B/l lower extremity edema Psych: Normal mood and affect. Objective Objective Clinical Data: Abnormal lab results 03/09/18 03/09/18 Range/Units 06:40 15:15 Chloride 110 H (98-107) mmol/L Carbon Dioxide 20.0 L (21.0-32.0) mmol/L BUN 38 H (7-18) mg/dL Creatinine 2.67 H (0.70-1.30) mg/dL Glucose 187 H D (70-100) mg/dL Calcium 8.2 L (8.5-10.1) mg/dL Vancomycin Trough 26.1 H* (10.0-20.0) ug/mL Vital Signs Temperature 36.1 C L 03/09/18 19:53 Temperature Source Tympanic 03/09/18 19:53 Pulse 57 L 03/09/18 19:53 Pulse Rhythm Regular 03/09/18 07:56 Pulse 66 03/01/18 10:10 Respiratory Rate 20 03/09/18 19:53 Respiratory Effort Non-Labored 03/09/18 07:56 Respiratory Depth Normal 03/09/18 07:56 Respiratory Pattern Normal 03/09/18 07:56 Blood Pressure 168/76 H 03/09/18 19:53 Blood Pressure Mean 86 03/01/18 10:01 Blood Pressure Position Supine 03/01/18 09:11 Pulse Oximetry 97 03/09/18 19:53 Oxygen Delivery Method Room Air 03/09/18 19:53 Oxygen Flow Rate 0 03/09/18 19:53 Pain Level 0 03/09/18 18:28 Comment 03/05/18 07:35 Intake & Output 03/08/18 03/09/18 03/09/18 23:59 11:59 23:59 Intake Total 3889.167 / 5596.667 2410.000 / 3560.833 1150.833 / 3560.833 Output Total 3075 / 5650 2175 / 3900 1725 / 3900 Balance 814.167 / -53.333 235.000 / -339.167 -574.167 / -339.167 Weight 102.8 kg Intake: IV 1609.167 / 2416.667 1450.000 / 2000.833 550.833 / 833 Oral 2280 / 3180 960 / 1560 600 / 1560 Output: Drainage 100 / 525 250 / 525 275 / 525 Right Upper Abdomen 100 / 525 250 / 525 275 / 525 Urine 1725 / 2675 1000 / 1650 650 / 1650 Stool 1250 / 2450 925 / 1725 800 / 1725 Other: Urine Color Yellow Yellow Yellow Urine Appearance Clear Clear Clear Urine Odor Normal Normal Normal Voiding Methods Urinal Urinal Urinal Laboratory Results WBC 11.37 k/cumm (4.4-10.8) H 03/08/18 06:15 RBC 4.08 m/cumm (4.50-6.00) L 03/08/18 06:15 Hgb 9.5 g/dL (13.5-17.5) L 03/08/18 06:15 Hct 30.8 % (40.0-50.0) L 03/08/18 06:15 MCV 75.5 fL (80-95) L 03/08/18 06:15 MCH 23.3 pg (27.0-33.0) L 03/08/18 06:15 MCHC 30.8 g/dL (32.0-36.0) L 03/08/18 06:15 RDW 20.4 % (11.8-14.1) H 03/08/18 06:15 Plt Count 405 x1000/uL (130-400) H 03/08/18 06:15 MPV 9.7 fL (8.0-11.0) 03/08/18 06:15 Abs Immat Gran (auto) Cancelled 03/05/18 05:35 Immature Gran % See Differential 03/08/18 06:15 Neutrophils % 81.0 03/08/18 06:15 Lymphocytes % 8.0 03/08/18 06:15 Monocytes % 2.0 03/08/18 06:15 Eosinophils % 1.0 03/08/18 06:15 Basophils % 0.0 03/08/18 06:15 Absolute Neutrophils 9.44 k/cumm (1.2-6.7) H 03/08/18 06:15 Band Neutrophils 2.0 % 03/08/18 06:15 Absolute Lymphocytes 0.91 k/cumm (1.2-3.4) L 03/08/18 06:15 Absolute Monocytes 0.23 k/cumm (0.11-0.7) 03/08/18 06:15 Absolute Eosinophils 0.11 k/cumm (0.0-0.7) 03/08/18 06:15 Absolute Basophils 0.00 k/cumm (0.0-0.2) 03/08/18 06:15 Metamyelocytes 3.0 % 03/08/18 06:15 Myelocytes 3.0 % 03/08/18 06:15 Promyelocytes Cancelled 03/05/18 05:35 Nucleated RBCs Cancelled 03/05/18 05:35 Differential Comment Manual differential 03/08/18 06:15 Atypical Lymphocytes Cancelled 03/05/18 05:35 Other Cell Type Cancelled 03/05/18 05:35 RBC Morphology See below 03/08/18 06:15 Polychromasia Present 03/02/18 07:00 Hypochromasia 3+ 03/02/18 07:00 Poikilocytosis 2+ 03/08/18 06:15 Basophilic Stippling Cancelled 03/05/18 05:35 Anisocytosis 3+ 03/06/18 17:30 Microcytosis 3+ 03/06/18 17:30 Macrocytosis Cancelled 03/05/18 05:35 Spherocytes Cancelled 03/05/18 05:35 Target Cells Cancelled 03/05/18 05:35 Tear Drop Cells 2+ 03/01/18 09:38 Ovalocytes 2+ 03/02/18 07:00 Stomatocytes Cancelled 03/05/18 05:35 [place] Bodies Cancelled 03/05/18 05:35 Sathya Cells Cancelled 03/05/18 05:35 Acanthocytes (Spur) Cancelled 03/05/18 05:35 Schistocytes Cancelled 03/05/18 05:35 PT 9.6 sec (9.3-11.0) 03/05/18 13:12 INR 1.0 (0.9-1.1) 03/05/18 13:12 Sodium 139 mmol/L (136-145) 03/09/18 06:40 Potassium 4.5 mmol/L (3.5-5.1) 03/09/18 06:40 Chloride 110 mmol/L (98-107) H 03/09/18 06:40 Carbon Dioxide 20.0 mmol/L (21.0-32.0) L 03/09/18 06:40 Anion Gap 9.0 mmol/L (3-11) 03/09/18 06:40 BUN 38 mg/dL (7-18) H 03/09/18 06:40 Creatinine 2.67 mg/dL (0.70-1.30) H 03/09/18 06:40 Estimated GFR/1.73 m2 24.71 (mL/min/1.73m2) 03/09/18 06:40 Glucose 187 mg/dL (70-100) H D 03/09/18 06:40 Lactate 1.1 mmol/L (0.6-1.4) 03/02/18 07:00 Calcium 8.2 mg/dL (8.5-10.1) L 03/09/18 06:40 Magnesium 2.1 mg/dL (1.8-2.4) 03/07/18 06:17 Total Bilirubin 0.2 mg/dL (0.2-1.0) 03/01/18 09:38 Conjugated Bilirubin 0.08 mg/dL (0.00-0.20) 03/01/18 09:38 AST 3 U/L (15-37) L 03/01/18 09:38 ALT 13 U/L (12-78) 03/01/18 09:38 Alkaline Phosphatase 273 U/L (46-116) H 03/01/18 09:38 Creatine Kinase 15 U/L (39-308) L 03/08/18 21:20 Total Protein 7.1 g/dL (6.4-8.2) 03/01/18 09:38 Albumin 2.3 g/dL (3.4-5.0) L 03/01/18 09:38 TSH 0.61 uIU/mL (0.358-3.74) 03/02/18 07:00 Urine Color Yellow (Yellow) 03/04/18 14:20 Urine Clarity Clear 03/04/18 14:20 Urine pH 6.0 (5-8) 03/04/18 14:20 Ur Specific [place] 1.020 (1.005-1.025) 03/04/18 14:20 Urine Protein 30 mg/dL (Negative) H 03/04/18 14:20 Urine Ketones Negative mg/dL (Negative) 03/04/18 14:20 Urine Blood Trace-intact (Negative) H 03/04/18 14:20 Urine Nitrite Negative (Negative) 03/04/18 14:20 Urine Bilirubin Negative (Negative) 03/04/18 14:20 Urine Urobilinogen 0.2 EU/dL (Up TO 0.2) 03/04/18 14:20 Ur Leukocyte Esterase Small (Negative) H 03/04/18 14:20 Urine RBC 3-5 (0-2) H 03/04/18 14:20 Urine WBC >50 HPF (0-5) 03/04/18 14:20 Ur Epithelial Cells Negative HPF (Negative) 03/04/18 14:20 Urine Crystals Few amorphous HPF (Negative) 03/04/18 14:20 Urine Bacteria Moderate HPF (Negative) 03/04/18 14:20 Urine Casts 3-5 coarse granular LPF (Negative) 03/04/18 14:20 Urine Mucus Negative (Negative) 03/04/18 14:20 Urine Other Moderate yeast (Negative) 03/04/18 14:20 Ur Culture Indicated? C&s done as ordered 03/04/18 14:20 Urine Glucose Negative mg/dL (Negative) 03/04/18 14:20 Vancomycin Trough 26.1 ug/mL (10.0-20.0) H* 03/09/18 15:15
--- NOTE | 2018-03-09 22:40 | PGE_ITS ---
Date of Service Date of service: 03/09/18 Time of Service: 22:36 Assessment and Plan (1) 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 2 diabetes mellitus: Current visit: Yes Status: Acute Non-healing diabetic foot ulcer, with xray showing evidence of potential osteo of the right 5th metatarsal. Currently on Day #10 of Pip-Tazo - also on Vancomycin for prior MRSA bacteremia. Underwent debridement with culture of the tissue via Podiatry, but had been with negative culture results. However, now growing MRSA from broth only of one surgical sample. Plan on discussion with ID in the morning - had planned on 6 weeks of treatment with Vanc/Ertapenem if identity was in doubt, or if suspected polymicrobial growth. (2) Chronic cholecystitis: Current visit: Yes Status: Acute Cholecystostomy drain was not changed at [facility] [place] on 03/05/[place] - per discussion with IR, there would not have been a benefit to it from the stand point of decreasing infection risk, as long as the drain is functioning well and continues to drain. (3) HCAP (healthcare-associated pneumonia): Current visit: No Status: Resolved S/p 5 days of therapy with Vancomycin and Pip-Tazo. Unsure if this was a true diagnosis as repeat read of CXR and repeat imaging failed to show evidence of an infiltrate. However, Sputum culture with MRSA despite the fact that patient had been on lengthy treatment with Vancomycin for MRSA bacteremia in early January. (4) MRSA bacteremia: Current visit: No Status: Resolved Remains on Vancomycin with PICC in place. Now with Osteo of the foot which will require further 6 weeks of treatment with Vanco. (5) Acute on chronic kidney failure: Current visit: No Status: Resolved Continue gentle hydration - patient also on daily diuretic therapy but no longer on ARYA-I. Has lengthy history of significant hyperkalemia, and elevated K+ yesterday which responded well to Lasix and Kayexalate. Medications reviewed and without obvious offending agent. Monitor closely, and for now continue IVFs as well. Change to renal/low potassium diet. (6) Hyperkalemia: Current visit: No Status: Acute Treatment as above. (7) Poorly controlled type 2 diabetes mellitus with circulatory disorder: Current visit: No Status: Chronic Continue lantus, sliding scale coverage and ADA diet. (8) Adrenal insufficiency: Current visit: No Status: Chronic Continue stress dose steroids but wean today. Also on concurrent baseline prednisone. (9) DVT prophylaxis: Current visit: No Status: Acute SC Heparin. Ensure PPI. Subjective Interval history since last seen: 57 year old resident of the [facility], with a recent history of MRSA bacteremia on IV vancomycin, admitted from [facility] Emergency Department with a diagnosis of Health Care Aquired Pneumonia. Mr. Corley has been hospitalized here at [facility] with sepsis on numerous prior occasions. He has a history of Group C strep bacteremia and E. Fecalis UTI in the past, and following his discharge returned to the hospital septic and suffered a cardiopulmonary arrest necessitating a transfer to [facility]. He was treated for Choleycystitis, and as he is not a surgical candidate, he was tr eated conservatively with a pigtail catheter and antibiotics. He is chronically a resident at the [facility]. His other medical history includes DM, Adrenal insufficiency secondary to chronic steroid use, RA, Crohn's disease s/p Colectomy, OA, CKD with prior JESUS and resultant hyperkalemia, HTN, CAD, hypothyroidism, Obesity, and chronic pain. He's had recurrent UTIs, and also has a history of a non-healing diabetic foot ulcer. The patient was send to the ED due to worsening lethargy and hyperglycemia as noted in the [facility]. While his initial CXR showed evidence of potential pneumonia vs. edema, subsequent read and repeat imaging showed no evidence of definitive acute process. His sputum however did grow MRSA - of note, he has had a recent MRSA bacteremia that he remains on Vancomycin for - he was unable to go through a KELLEE, but due to a persistent murmur is under long-term antibiotic therapy due to end soon. Since admission Mr. Corley has remained on Vancomycin and Pip-Tazo, and has undergone a debridement of his wound via Podiatry, with cultures remain negative. Yesterday the patient had developed hyperkalemia despite a stable creatinine, necessitating treatment with additional lasix and Kayexalate. His potassium is normalized this morning. No other events reported. He remains afebrile. Exam Narrative Exam Narrative: General: Patient appears comfortable laying bed, asleep but easily arousable, obese, AAOX3, NAD Neck: Supple CV: Regular, nontachycardic, S1S2 Pulmonary: Clear to auscultation bilaterally, no crackles, wheezing, or rhonchi Abdomen: + Bowel Sounds, soft, nontender, nondistended, obese in contour. Vascular: B/l lower extremity edema Psych: Normal mood and affect. Objective Objective Clinical Data: Abnormal lab results 03/09/18 03/09/18 Range/Units 06:40 15:15 Chloride 110 H (98-107) mmol/L Carbon Dioxide 20.0 L (21.0-32.0) mmol/L BUN 38 H (7-18) mg/dL Creatinine 2.67 H (0.70-1.30) mg/dL Glucose 187 H D (70-100) mg/dL Calcium 8.2 L (8.5-10.1) mg/dL Vancomycin Trough 26.1 H* (10.0-20.0) ug/mL Vital Signs Temperature 36.1 C L 03/09/18 19:53 Temperature Source Tympanic 03/09/18 19:53 Pulse 57 L 03/09/18 19:53 Pulse Rhythm Regular 03/09/18 07:56 Pulse 66 03/01/18 10:10 Respiratory Rate 20 03/09/18 19:53 Respiratory Effort Non-Labored 03/09/18 07:56 Respiratory Depth Normal 03/09/18 07:56 Respiratory Pattern Normal 03/09/18 07:56 Blood Pressure 168/76 H 03/09/18 19:53 Blood Pressure Mean 86 03/01/18 10:01 Blood Pressure Position Supine 03/01/18 09:11 Pulse Oximetry 97 03/09/18 19:53 Oxygen Delivery Method Room Air 03/09/18 19:53 Oxygen Flow Rate 0 03/09/18 19:53 Pain Level 0 03/09/18 18:28 Comment 03/05/18 07:35 Intake & Output 03/08/18 03/09/18 03/09/18 23:59 11:59 23:59 Intake Total 3889.167 / 5596.667 2410.000 / 3560.833 1150.833 / 3560.833 Output Total 3075 / 5650 2175 / 3900 1725 / 3900 Balance 814.167 / -53.333 235.000 / -339.167 -574.167 / -339.167 Weight 102.8 kg Intake: IV 1609.167 / 2416.667 1450.000 / 2000.833 550.833 / 1999.833 Oral 2280 / 3180 960 / 1560 600 / 1560 Output: Drainage 100 / 525 250 / 525 275 / 525 Right Upper Abdomen 100 / 525 250 / 525 275 / 525 Urine 1725 / 2675 1000 / 1650 650 / 1650 Stool 1250 / 2450 925 / 1725 800 / 1725 Other: Urine Color Yellow Yellow Yellow Urine Appearance Clear Clear Clear Urine Odor Normal Normal Normal Voiding Methods Urinal Urinal Urinal Laboratory Results WBC 11.37 k/cumm (4.4-10.8) H 03/08/18 06:15 RBC 4.08 m/cumm (4.50-6.00) L 03/08/18 06:15 Hgb 9.5 g/dL (13.5-17.5) L 03/08/18 06:15 Hct 30.8 % (40.0-50.0) L 03/08/18 06:15 MCV 75.5 fL (80-95) L 03/08/18 06:15 MCH 23.3 pg (27.0-33.0) L 03/08/18 06:15 MCHC 30.8 g/dL (32.0-36.0) L 03/08/18 06:15 RDW 20.4 % (11.8-14.1) H 03/08/18 06:15 Plt Count 405 x1000/uL (130-400) H 03/08/18 06:15 MPV 9.7 fL (8.0-11.0) 03/08/18 06:15 Abs Immat Gran (auto) Cancelled 03/05/18 05:35 Immature Gran % See Differential 03/08/18 06:15 Neutrophils % 81.0 03/08/18 06:15 Lymphocytes % 8.0 03/08/18 06:15 Monocytes % 2.0 03/08/18 06:15 Eosinophils % 1.0 03/08/18 06:15 Basophils % 0.0 03/08/18 06:15 Absolute Neutrophils 9.44 k/cumm (1.2-6.7) H 03/08/18 06:15 Band Neutrophils 2.0 % 03/08/18 06:15 Absolute Lymphocytes 0.91 k/cumm (1.2-3.4) L 03/08/18 06:15 Absolute Monocytes 0.23 k/cumm (0.11-0.7) 03/08/18 06:15 Absolute Eosinophils 0.11 k/cumm (0.0-0.7) 03/08/18 06:15 Absolute Basophils 0.00 k/cumm (0.0-0.2) 03/08/18 06:15 Metamyelocytes 3.0 % 03/08/18 06:15 Myelocytes 3.0 % 03/08/18 06:15 Promyelocytes Cancelled 03/05/18 05:35 Nucleated RBCs Cancelled 03/05/18 05:35 Differential Comment Manual differential 03/08/18 06:15 Atypical Lymphocytes Cancelled 03/05/18 05:35 Other Cell Type Cancelled 03/05/18 05:35 RBC Morphology See below 03/08/18 06:15 Polychromasia Present 03/02/18 07:00 Hypochromasia 3+ 03/02/18 07:00 Poikilocytosis 2+ 03/08/18 06:15 Basophilic Stippling Cancelled 03/05/18 05:35 Anisocytosis 3+ 03/06/18 17:30 Microcytosis 3+ 03/06/18 17:30 Macrocytosis Cancelled 03/05/18 05:35 Spherocytes Cancelled 03/05/18 05:35 Target Cells Cancelled 03/05/18 05:35 Tear Drop Cells 2+ 03/01/18 09:38 Ovalocytes 2+ 03/02/18 07:00 Stomatocytes Cancelled 03/05/18 05:35 [place] Bodies Cancelled 03/05/18 05:35 Sathya Cells Cancelled 03/05/18 05:35 Acanthocytes (Spur) Cancelled 03/05/18 05:35 Schistocytes Cancelled 03/05/18 05:35 PT 9.6 sec (9.3-11.0) 03/05/18 13:12 INR 1.0 (0.9-1.1) 03/05/18 13:12 Sodium 139 mmol/L (136-145) 03/09/18 06:40 Potassium 4.5 mmol/L (3.5-5.1) 03/09/18 06:40 Chloride 110 mmol/L (98-107) H 03/09/18 06:40 Carbon Dioxide 20.0 mmol/L (21.0-32.0) L 03/09/18 06:40 Anion Gap 9.0 mmol/L (3-11) 03/09/18 06:40 BUN 38 mg/dL (7-18) H 03/09/18 06:40 Creatinine 2.67 mg/dL (0.70-1.30) H 03/09/18 06:40 Estimated GFR/1.73 m2 24.71 (mL/min/1.73m2) 03/09/18 06:40 Glucose 187 mg/dL (70-100) H D 03/09/18 06:40 Lactate 1.1 mmol/L (0.6-1.4) 03/02/18 07:00 Calcium 8.2 mg/dL (8.5-10.1) L 03/09/18 06:40 Magnesium 2.1 mg/dL (1.8-2.4) 03/07/18 06:17 Total Bilirubin 0.2 mg/dL (0.2-1.0) 03/01/18 09:38 Conjugated Bilirubin 0.08 mg/dL (0.00-0.20) 03/01/18 09:38 AST 3 U/L (15-37) L 03/01/18 09:38 ALT 13 U/L (12-78) 03/01/18 09:38 Alkaline Phosphatase 273 U/L (46-116) H 03/01/18 09:38 Creatine Kinase 15 U/L (39-308) L 03/08/18 21:20 Total Protein 7.1 g/dL (6.4-8.2) 03/01/18 09:38 Albumin 2.3 g/dL (3.4-5.0) L 03/01/18 09:38 TSH 0.61 uIU/mL (0.358-3.74) 03/02/18 07:00 Urine Color Yellow (Yellow) 03/04/18 14:20 Urine Clarity Clear 03/04/18 14:20 Urine pH 6.0 (5-8) 03/04/18 14:20 Ur Specific [place] 1.020 (1.005-1.025) 03/04/18 14:20 Urine Protein 30 mg/dL (Negative) H 03/04/18 14:20 Urine Ketones Negative mg/dL (Negative) 03/04/18 14:20 Urine Blood Trace-intact (Negative) H 03/04/18 14:20 Urine Nitrite Negative (Negative) 03/04/18 14:20 Urine Bilirubin Negative (Negative) 03/04/18 14:20 Urine Urobilinogen 0.2 EU/dL (Up TO 0.2) 03/04/18 14:20 Ur Leukocyte Esterase Small (Negative) H 03/04/18 14:20 Urine RBC 3-5 (0-2) H 03/04/18 14:20 Urine WBC >50 HPF (0-5) 03/04/18 14:20 Ur Epithelial Cells Negative HPF (Negative) 03/04/18 14:20 Urine Crystals Few amorphous HPF (Negative) 03/04/18 14:20 Urine Bacteria Moderate HPF (Negative) 03/04/18 14:20 Urine Casts 3-5 coarse granular LPF (Negative) 03/04/18 14:20 Urine Mucus Negative (Negative) 03/04/18 14:20 Urine Other Moderate yeast (Negative) 03/04/18 14:20 Ur Culture Indicated? C&s done as ordered 03/04/18 14:20 Urine Glucose Negative mg/dL (Negative) 03/04/18 14:20 Vancomycin Trough 26.1 ug/mL (10.0-20.0) H* 03/09/18 15:15
[2018-03-10] VITALS (11 sets, daily range): BP systolic 105–164; BP diastolic 70–76; PULSE 55–73; RESP 18–20; TEMP 35.7–37.1; O2SAT 94–99
[2018-03-10] MEDS: Acetaminophen 325 MG TAB PO ×3 (03:19→23:02)
[2018-03-10] MEDS: Levothyroxine 75 MCG TAB 37.5 MCG PO (06:11)
[2018-03-10] MEDS: Normal Saline Flush 10 ML SYR IVP ×2 (06:29→12:10)
[2018-03-10] MEDS: Normal Saline 1,000 ML 150 ML IV (06:32)
[2018-03-10 07:14] LABS: Abs Immature Grans 0.27 k/cumm (0.0-0.09); HCT 30.2 % (40.0-50.0); HGB 9.1 g/dL (13.5-17.5); Mean Corp. HGB Concentration 30.1 g/dL (32.0-36.0); Mean Corpuscular Hemoglobin 22.9 pg (27.0-33.0); Mean Corpuscular Volume 76.1 fL (80-95); Mean Platelet Volume 9.9 fL (8.0-11.0); Platelet Count 435 x1000/uL (130-400); RBC 3.97 m/cumm (4.50-6.00); White Blood Cell Count 13.09 k/cumm (4.4-10.8)
[2018-03-10 07:17] LABS: BUN 35 mg/dL (7-18); CREATININE 2.19 mg/dL (0.70-1.30); Calcium 8.4 mg/dL (8.5-10.1); Chloride 112 mmol/L (98-107); Estimated GFR 31.06 (mL/min/1.73m2); Glucose 145 mg/dL (70-100); Potassium 4.5 mmol/L (3.5-5.1); Sodium 140 mmol/L (136-145)
[2018-03-10 07:32] LABS: Absolute Eosinophil Count 0.13 k/cumm (0.0-0.7); Absolute Lymphocyte Count 0.79 k/cumm (1.2-3.4); Absolute Monocyte Count 0.65 k/cumm (0.11-0.7); Absolute Neutrophil Count 11.13 k/cumm (1.2-6.7); Anisocytosis 3+; Diff Comment Manual Differential
[2018-03-10 07:33] LABS: Hypochromasia 3+; Microcytosis 3+; Poikilocytes 3+
--- NOTE | 2018-03-10 07:52 | WOUNDCARE ---
Wound Care Report
[2018-03-10] MEDS: cloNIDine 0.1 MG TAB 0.3 MG PO ×3 (08:31→20:49)
[2018-03-10] MEDS: Cyanocobalamin 500 MCG TAB 1000 MCG PO (08:32)
[2018-03-10] MEDS: Gabapentin 300 MG CAP PO ×3 (08:32→20:51)
[2018-03-10] MEDS: hydrOXYzine HCL 25 MG TAB PO ×2 (08:33→23:02)
[2018-03-10] MEDS: amLODIPine 5 MG TAB 10 MG PO (08:33)
[2018-03-10] MEDS: Venlafaxine 37.5 MG CAPCR 75 MG PO (08:33)
[2018-03-10] MEDS: carBAMazepine 100 MG CHEW PO ×3 (08:33→20:49)
[2018-03-10] MEDS: Metoprolol CR 25 MG TABCR PO (08:33)
[2018-03-10] MEDS: Folic Acid 1 MG TAB PO (08:34)
[2018-03-10] MEDS: Terazosin 2 MG CAP 4 MG PO ×2 (08:34→20:51)
[2018-03-10] MEDS: hydrALAZINE 10 MG TAB PO ×3 (08:34→20:51)
[2018-03-10] MEDS: Ascorbic Acid 500 MG TAB PO ×2 (08:34→20:49)
[2018-03-10] MEDS: Aspirin E.C. 81 MG TABEC PO ×2 (08:34→20:50)
[2018-03-10] MEDS: Magnesium Chloride 64 MG TABCR PO ×2 (08:35→20:49)
[2018-03-10] MEDS: Heparin 5,000 UNITS/ML VIAL 5000 UNITS SC ×3 (08:35→23:03)
[2018-03-10] MEDS: Multivitamin TAB 1 TAB PO (08:35)
[2018-03-10] MEDS: Ferrous Sulfate 325 MG TAB PO ×2 (08:35→20:50)
[2018-03-10] MEDS: Omeprazole 20 MG CAPCR PO (08:35)
[2018-03-10] MEDS: Hydrocortisone SOD SUC. 100 MG VIAL 50 MG IV (08:36)
[2018-03-10] MEDS: Insulin Aspart 300 UNITS/3 ML PEN 15 UNITS SC ×2 (08:52→18:08)
--- NOTE | 2018-03-10 10:30 | OT.INPN ---
Date of service: 03/10/18 Time of Service: 08:55 Occupational Therapy Notes Occupational Therapy Inpatient Progress Note Date: 03/10/18 Dates of Service: 03/02/18-03/10/18 PRECAUTIONS: Droplet Precautions, Fall Risk SUBJECTIVE: Pt was sitting on side of bed when OT arrived. Pt was agreeable to OT session. OBJECTIVE: PAIN:no c/o pain. FUNCTIONAL MOBILITY/ADLS: BATHING: Upper Body: Pt was able to (I) wash hands and (R) UE with (L) UE. Unable to wash (R) with (L) due to limited ROM. EATING: Max (A) opening containers, Mod (A) cutting food, (I) with tray to mouth translation. ASSESSMENT: Patient is a 57-year-old male referred to occupational therapy services with diagnosis of lathargic and hyperglycemic after being admitted through the ER on 03/01/18 due tyo his diabetes in setting of Diabetic neuropathy, diabetic foot ulcers, rheumatoid arthritis, osteoarthritis bilateral knees, sacral decubitus ulcer, chronic renal insufficiency, coronary artery disease, crohn's disease, s/p colectomy, anemia, urinary tract infection, dyslipidemia, hypoandrogenism, cholelithiasis, hypertension, bipolar Disorder, chronic back pain, lower extremity edema, obesity, diabetes mellitus, MRSA blood and urine. Pt has been seen for 5 OT sessions he has demonstrated increased (I) with Upper body bathing at this time. He is progressing towards being (I) with opening containers and donning hospital gown. OT recommends that pt return to [facility] when medically cleared per MD. GOALS 1. Dressing- Pt will be able to don hospital gown with min (A) and min vc 2. Bathing- Pt will be able to (I) wash face, (B) UE and abdomen with min vc 3. Eating- Pt will be able to perform eating routine with min (A) for opening packages and (I) translation from plate to mouth Pt has met goal 3, he is progressing towards other goals at this time. PLAN: 1x/day, 5 days/ week x 1week Initiate Occupational Therapy Services for bathing, dressing, grooming, toileting, eating, transfer training. DISCHARGE RECOMMENDATIONS Return to the [facility] when medically cleared per MD. TREATMENT CODES/TIME: Thera Act (55993q4) 20 minutes (08:55) G Codes in the area of self- : washing oneself, toileting, dressing, eating and drinking, current status GO G8987 CK projected status GO [id number]. Discharge status (if discharging) GO V6243-SD. Suzanne Javier, OTR/L [facility]
--- NOTE | 2018-03-10 14:13 | PT.INPN ---
Date of service: 03/10/18 Time of Service: 11:30 PT Notes Date: 03/10/18 Referring Doctor: Dr. Priscila Canela PT Orders: PT CONSULT: Evaluate and treat Precautions: Standard, contact, fall Treatment Dates: 03/05/2018 - 03/10/18 Patient Profile/Admitting Diagnosis: Patient admitted with toxic metabolic encephalopathy. He is a resident of [facility], with complicated medical history. During his course of care here at the hospital, he has also been managed for wound care, with recent debridement of the right foot by Dr. Ashford. He is now in a post-op shoe on the right. PMHX: MRSA bacteremia; chronic adrenal insufficiency; RA with chronic steroid use; Crohn's disease, status post ileostomy; sepsis; history of cardiac arrest; cholecystitis, status post cholecystectomy drain Social History/Home Situation: Patient is a resident of [facility]. Per his report he walks short distances only, he estimates approximately 10 steps with use of wheeled walker. He does not manage stairs. Equipment Owned/DME: Wheeled walker, resides in long-term care facility Subjective: Patient is resting in bed, just finishing up wound care with nursing. He states that he is very tired and has had a busy morning. Objective: General Observation: Resting in bed, no lines. Patient has several wounds throughout the lower extremities, in various stages of healing. His right foot is freshly dressed. Mental Status: A and O x3 Pain: Denies pain currently ROM: Right Upper Extremity: Shoulder flexion 80 degrees. Elbow motion is within functional limits. Patient able to demonstrate full executive office manager, although only 50% hand opening actively; passively he is able to achieve good functional opening of the hand. Left Upper Extremity: Shoulder flexion 80 degrees. Elbow motion is within functional limits. Patient able to demonstrate full executive office manager, although only 50% hand opening actively; passively he is able to achieve good functional opening of the hand. Right Lower Extremity: Patient has approximately 15-20 degree knee flexion contracture. Demonstrates ankle dorsiflexion to 0 degrees. Left Lower Extremity: Patient has approximately 15-20 degree knee flexion contracture. Demonstrates ankle dorsiflexion to 0 degrees. Strength: Right Upper Extremity: Shoulder flexion 3-/5. Biceps 4+/5. Triceps 4-/5. Die Fitter is weak but equal. Left Upper Extremity: Shoulder flexion 3-/5. Biceps 4+/5. Triceps 4-/5. Die Fitter is weak but equal. Right Lower Extremity: Hip flexion 4+/5. Quads 4+/5. Hamstrings 4/5. Ankle dorsiflexion 3/5. Left Lower Extremity: Hip flexion 4+/5. Quads 4+/5. Hamstrings 4/5. Ankle dorsiflexion 3/5. Bed Mobility/Transfers: Rolling L-R: independent Supine to sit: min A Sit to stand: CG Stand to sit: CG Bed to chair: WW, CG Gait: Patient ambualtes 6' with WW, CG and use of right post-op shoe. Balance: Static Sitting: Normal Dynamic Sitting: Normal Static Standing: Fair Dynamic Standing: Fair Treatment: Today's session consisted of re-evaluation, as well as instruction in seated UE/LE strengthening activities. Patient was having difficulty staying awake during completion of UE exercises, and treatment was subsequently discontinued. Patient remained up in chair with nursing present at end of session. Assessment: Patient is a 57 year old male referred to physical therapy services with the diagnosis of toxic metabolic encephalopathy. Patient presents with clinical signs and symptoms consistent with diminished mobility related to acute medical issues. Patient does have chronic mobility deficits, and resides in a long-term care facility, where he requires assistance with all ambulation and self-care. PT goals will be targeted at maximizing patient's mobility and strength to allow for safe transition back to long-term care facility. Patient has participated in PT intervention 1-2x/day since evaluation, with one day of refusal of treatment. He is making gains in his mobility and activity tolerance, and showing progress toward established goals. Goals: Goals X1 week 1. Supine-Sit independent (Progressing Toward) 2. Sit-Supine independent(Progressing Toward) 3. Sit-Stand CG with upper extremity support to wheeled walker (met) 4. Stand-Sit CG(met) 5. Bed-Chair min assist with WW(met) 6. Chair-Bed min assist with WW(met) 7. Gait: 10' with WW and min A (progressing toward) Plan of Care/Treatment Plan: 1-2x/day, 7 days/week x 1 week. Plan of care has been reviewed with the MEDICAL SAFETY DIRECTOR providing the service under Physical Therapy direction. Initiate Physical Therapy intervention for strengthening, bed mobility, transfers, gait, stairs, balance training, use of assistive device. DISCHARGE RECOMMENDATIONS: Return to the [facility] with no equipment needs anticipated TREATMENT CODE/TIME: 20 minutes ([id number])
[2018-03-10] MEDS: VANCOMYCIN 750 MG in Normal Saline 250 ML 166.667 MG IV (14:52)
--- NOTE | 2018-03-10 15:27 | PDOC.CMPRO ---
- If Service Date Differs Date of service: 03/10/18 Time of Service: 15:27 Care Management Progress Note S/O: Brendan was lying in bed when this lead technical writer visited this morning. he reported no concerns at this time. Per morning meeting Brendan may require 4-6 weeks of IV antibiotics and may require Swingbed for this service. CM to continue to follow during Brendan's hospitalization. A: 57 year old male admitted to [facility] 03/01/18 for Hyperglycemia, encephalopathy, suspected sepsis, pneumonia P: CM will continue to monitor clinical progress and support discharge planning considerations, he will return to the [facility]-his residence-when ready per MD. He will transport via W/C Van coordinated by this lead technical writer.
--- NOTE | 2018-03-10 17:34 | PT.INTREAT ---
Date of service: 03/10/18 Time of Service: 07:20 PT Notes Inpatient Physical Therapy Treatment Note [facility] Date: 03/10/18 PRECAUTIONS:contact, droplet SUBJECTIVE: Brendan states that he's feeling fine. He'd like to get up for dinner. OBJECTIVE: BED MOBILITY/TRANSFERS Supine-sit:independent (to left side) Sit-stand: supervision Stand-sit: supervision GAIT Assistive Device: none Weight bearing: as tolerated in post-op shoe right Assist: CG Distance: sidestep x 3 THEREX: Patient completed limited therex as noted in flow sheet. He declines further activities today. He is able to statically stand x 30 seconds without UE support and perform supine activities as noted in flowsheet. ASSESSMENT: Demonstrating improved mobility and willingness to participate in PT intervention today. PLAN: Continue progressing strengthening and short distance ambulation as he tolerates. TREATMENT CODE/TIME: 25 minutes ([id number])
[2018-03-10] MEDS: Insulin Aspart 300 UNITS/3 ML PEN SC ×2 (18:07→21:44)
--- NOTE | 2018-03-10 20:01 | W.PM.PROGNOT ---
Date of Service Date of service: 03/10/18 Time of Service: 20:02 Assessment and Plan (1) 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 2 diabetes mellitus: Current visit: Yes Status: Acute Non-healing diabetic foot ulcer, with Xray showing evidence of potential osteo of the right 5th metatarsal. Currently on Day #11 of Pip-Tazo and Vancomycin . Underwent debridement with resection of the 5th MPJ - culture of the tissue via Podiatry had been with negative culture results, but now growing MRSA and a GNR. Plan on discussion with ID once sensitivities are available - will need 6 weeks of treatment with Vanc and 2nd antibiotic pending results of culture. Based on prior discussion with ID Zosyn was discontinued in favor of Ertapenem for potential suspected polymicrobial growth. Will await final culture results prior to repeat discussion with ID. (2) Chronic cholecystitis: Current visit: Yes Status: Acute Cholecystostomy drain was not changed at [facility] on 03/05/17 - per discussion with IR, there would not have been a benefit to it from the stand point of decreasing infection risk, as long as the drain is functioning well and continues to drain. (3) HCAP (healthcare-associated pneumonia): Current visit: No Status: Resolved S/p 5 days of therapy with Vancomycin and Pip-Tazo. Unsure if this was a true diagnosis as repeat read of CXR and repeat imaging failed to show evidence of an infiltrate. However, Sputum culture with MRSA despite the fact that patient had been on lengthy treatment with Vancomycin for MRSA bacteremia in early January. (4) MRSA bacteremia: Current visit: No Status: Resolved S/p 6 weeks of Vancomycin - now reinititated in the setting of Osteo of the foot with culture results positive for MRSA. (5) Acute on chronic kidney failure: Current visit: No Status: Resolved Resolved. Patient no longer on ARYA-I. Has lengthy history of significant hyperkalemia, and elevated K+ which he also experienced earlier this hospitalization, requiring additional dose of IV Diuretic and Kayexalate. Continue renal diet, renally dose medications, and monitor renal function. (6) Hyperkalemia: Current visit: No Status: Acute Resolved. (7) Poorly controlled type 2 diabetes mellitus with circulatory disorder: Current visit: No Status: Chronic Continue lantus, sliding scale coverage and ADA diet. (8) Adrenal insufficiency: Current visit: No Status: Chronic Continue to wean stress dose steroids back to baseline prednisone. (9) DVT prophylaxis: Current visit: No Status: Acute SC Heparin. Ensure PPI. Subjective Interval history since last seen: 57 year old resident of the [facility], with a recent history of MRSA bacteremia on IV vancomycin, admitted from [facility] Emergency Department with a diagnosis of Health Care Aquired Pneumonia. Mr. Corley has been hospitalized here at [facility] with sepsis on numerous prior occasions. He has a history of Group C strep bacteremia and E. Fecalis UTI in the past, and following his discharge returned to the hospital septic and suffered a cardiopulmonary arrest necessitating a transfer to [facility]. He was treated for Choleycystitis, and as he is not a surgical candidate, he was treated conservatively with a pigtail catheter and antibiotics. He is chronically a resident at the [facility]. His other medical history includes DM, Adrenal insufficiency secondary to chronic steroid use, RA, Crohn's disease s/p Colectomy, OA, CKD with prior JESUS and resultant hyperkalemia, HTN, CAD, hypothyroidism, Obesity, and chronic pain. He's had recurrent UTIs, and also has a history of a non-healing diabetic foot ulcer. The patient was send to the ED due to worsening lethargy and hyperglycemia as noted in the Long-Term. While his initial CXR showed evidence of potential pneumonia vs. edema, subsequent read and repeat imaging showed no evidence of definitive acute process. His sputum did grow MRSA - of note, he has had a recent MRSA bacteremia that he had remained on Vancomycin for - he was unable to go through a KELLEE, but due to a persistent murmur was under long-term antibiotic therapy due to on 03/10. Since admission Mr. Corley has remained on Vancomycin and Pip-Tazo, and has undergone a debridement of his wound via Podiatry, with cultures remain negative. Yesterday the patient had developed hyperkalemia despite a stable creatinine, necessitating treatment with additional lasix and Kayexalate. His potassium is normalized this morning. No other events reported. He remains afebrile. Exam Narrative Exam Narrative: General: Patient appears comfortable laying bed, asleep but easily arousable, obese, AAOX3, NAD Neck: Supple CV: Regular, nontachycardic, S1S2 Pulmonary: Clear to auscultation bilaterally, no crackles, wheezing, or rhonchi Abdomen: + Bowel Sounds, soft, nontender, nondistended, obese in contour. Vascular: B/l lower extremity edema Psych: Normal mood and affect. Objective Objective Clinical Data: Abnormal lab results 03/10/18 03/10/18 Range/Units 06:15 06:15 WBC 13.09 H (4.4-10.8) k/cumm RBC 3.97 L (4.50-6.00) m/cumm Hgb 9.1 L (13.5-17.5) g/dL Hct 30.2 L (40.0-50.0) % MCV 76.1 L (80-95) fL MCH 22.9 L (27.0-33.0) pg MCHC 30.1 L (32.0-36.0) g/dL RDW 21.0 H (11.8-14.1) % Plt Count 435 H (130-400) x1000/uL Absolute Neutrophils 11.13 H (1.2-6.7) k/cumm Absolute Lymphocytes 0.79 L (1.2-3.4) k/cumm Chloride 112 H (98-107) mmol/L Carbon Dioxide 18.0 L (21.0-32.0) mmol/L BUN 35 H (7-18) mg/dL Creatinine 2.19 H (0.70-1.30) mg/dL Glucose 145 H (70-100) mg/dL Calcium 8.4 L (8.5-10.1) mg/dL Vital Signs Temperature 37.1 C 03/10/18 19:18 Temperature Source Tympanic 03/10/18 19:18 Pulse 56 L 03/10/18 19:18 Pulse Rhythm Regular 03/10/18 17:31 Pulse 66 03/01/18 10:10 Respiratory Rate 20 03/10/18 19:18 Respiratory Effort Non-Labored 03/10/18 17:31 Respiratory Depth Normal 03/10/18 17:31 Respiratory Pattern Normal 03/10/18 17:31 Blood Pressure 164/70 H 03/10/18 19:18 Blood Pressure Mean 86 03/01/18 10:01 Blood Pressure Position Supine 03/01/18 09:11 Pulse Oximetry 99 03/10/18 19:18 Oxygen Delivery Method Room Air 03/10/18 19:18 Oxygen Flow Rate 0 03/10/18 19:18 Pain Level 0 03/10/18 12:00 Comment 03/05/18 07:35 Intake & Output 03/09/18 03/10/18 03/10/18 23:59 11:59 23:59 Intake Total 1150.833 / 3560.833 1467.5 / 2187.5 720 / 2187.5 Output Total 2125 / 4300 2025 / 2325 300 / 2325 Balance -974.167 / -739.167 -557.5 / -137.5 420 / -137.5 Weight 105.1 kg Intake: IV 550.833 / 2000.833 1467.5 / 1467.5 Oral 600 / 1560 720 / 720 Output: Drainage 275 / 525 400 / 400 Right Upper Abdomen 275 / 525 400 / 400 Urine 650 / 1650 1625 / 1925 300 / 1925 Stool 1200 / 2125 Other: Urine Color Yellow Yellow Yellow Urine Appearance Clear Clear Urine Odor Normal Normal Voiding Methods Urinal Urinal Urinal Laboratory Results WBC 13.09 k/cumm (4.4-10.8) H 03/10/18 06:15 RBC 3.97 m/cumm (4.50-6.00) L 03/10/18 06:15 Hgb 9.1 g/dL (13.5-17.5) L 03/10/18 06:15 Hct 30.2 % (40.0-50.0) L 03/10/18 06:15 MCV 76.1 fL (80-95) L 03/10/18 06:15 MCH 22.9 pg (27.0-33.0) L 03/10/18 06:15 MCHC 30.1 g/dL (32.0-36.0) L 03/10/18 06:15 RDW 21.0 % (11.8-14.1) H 03/10/18 06:15 Plt Count 435 x1000/uL (130-400) H 03/10/18 06:15 MPV 9.9 fL (8.0-11.0) 03/10/18 06:15 Abs Immat Gran (auto) Cancelled 03/05/18 05:35 Immature Gran % See Differential 03/10/18 06:15 Neutrophils % 85.0 03/10/18 06:15 Lymphocytes % 6.0 03/10/18 06:15 Monocytes % 5.0 03/10/18 06:15 Eosinophils % 1.0 03/10/18 06:15 Basophils % 0.0 03/10/18 06:15 Absolute Neutrophils 11.13 k/cumm (1.2-6.7) H 03/10/18 06:15 Band Neutrophils 2.0 % 03/08/18 06:15 Absolute Lymphocytes 0.79 k/cumm (1.2-3.4) L 03/10/18 06:15 Absolute Monocytes 0.65 k/cumm (0.11-0.7) 03/10/18 06:15 Absolute Eosinophils 0.13 k/cumm (0.0-0.7) 03/10/18 06:15 Absolute Basophils 0.00 k/cumm (0.0-0.2) 03/10/18 06:15 Metamyelocytes 1.0 % 03/10/18 06:15 Myelocytes 2.0 % 03/10/18 06:15 Promyelocytes Cancelled 03/05/18 05:35 Nucleated RBCs Cancelled 03/05/18 05:35 Differential Comment Manual differential 03/10/18 06:15 Atypical Lymphocytes Cancelled 03/05/18 05:35 Other Cell Type Cancelled 03/05/18 05:35 RBC Morphology See below 03/10/18 06:15 Polychromasia Present 03/02/18 07:00 Hypochromasia 3+ 03/10/18 06:15 Poikilocytosis 3+ 03/10/18 06:15 Basophilic Stippling Cancelled 03/05/18 05:35 Anisocytosis 3+ 03/10/18 06:15 Microcytosis 3+ 03/10/18 06:15 Macrocytosis Cancelled 03/05/18 05:35 Spherocytes Cancelled 03/05/18 05:35 Target Cells Cancelled 03/05/18 05:35 Tear Drop Cells 2+ 03/01/18 09:38 Ovalocytes 2+ 03/02/18 07:00 Stomatocytes Cancelled 03/05/18 05:35 [place] [employer] Bodies Cancelled 03/05/18 05:35 [place] Cells Cancelled 03/05/18 05:35 Acanthocytes (Spur) Cancelled 03/05/18 05:35 Schistocytes Cancelled 03/05/18 05:35 PT 9.6 sec (9.3-11.0) 03/05/18 13:12 INR 1.0 (0.9-1.1) 03/05/18 13:12 Sodium 140 mmol/L (136-145) 03/10/18 06:15 Potassium 4.5 mmol/L (3.5-5.1) 03/10/18 06:15 Chloride 112 mmol/L (98-107) H 03/10/18 06:15 Carbon Dioxide 18.0 mmol/L (21.0-32.0) L 03/10/18 06:15 Anion Gap 10.0 mmol/L (3-11) 03/10/18 06:15 BUN 35 mg/dL (7-18) H 03/10/18 06:15 Creatinine 2.19 mg/dL (0.70-1.30) H 03/10/18 06:15 Estimated GFR/1.73 m2 31.06 (mL/min/1.73m2) 03/10/18 06:15 Glucose 145 mg/dL (70-100) H 03/10/18 06:15 Lactate 1.1 mmol/L (0.6-1.4) 03/02/18 07:00 Calcium 8.4 mg/dL (8.5-10.1) L 03/10/18 06:15 Magnesium 2.1 mg/dL (1.8-2.4) 03/07/18 06:17 Total Bilirubin 0.2 mg/dL (0.2-1.0) 03/01/18 09:38 Conjugated Bilirubin 0.08 mg/dL (0.00-0.20) 03/01/18 09:38 AST 3 U/L (15-37) L 03/01/18 09:38 ALT 13 U/L (12-78) 03/01/18 09:38 Alkaline Phosphatase 273 U/L (46-116) H 03/01/18 09:38 Creatine Kinase 15 U/L (39-308) L 03/08/18 21:20 Total Protein 7.1 g/dL (6.4-8.2) 03/01/18 09:38 Albumin 2.3 g/dL (3.4-5.0) L 03/01/18 09:38 TSH 0.61 uIU/mL (0.358-3.74) 03/02/18 07:00 Urine Color Yellow (Yellow) 03/04/18 14:20 Urine Clarity Clear 03/04/18 14:20 Urine pH 6.0 (5-8) 03/04/18 14:20 Ur Specific [place] 1.020 (1.005-1.025) 03/04/18 14:20 Urine Protein 30 mg/dL (Negative) H 03/04/18 14:20 Urine Ketones Negative mg/dL (Negative) 03/04/18 14:20 Urine Blood Trace-intact (Negative) H 03/04/18 14:20 Urine Nitrite Negative (Negative) 03/04/18 14:20 Urine Bilirubin Negative (Negative) 03/04/18 14:20 Urine Urobilinogen 0.2 EU/dL (Up TO 0.2) 03/04/18 14:20 Ur Leukocyte Esterase Small (Negative) H 03/04/18 14:20 Urine RBC 3-5 (0-2) H 03/04/18 14:20 Urine WBC >50 HPF (0-5) 03/04/18 14:20 Ur Epithelial Cells Negative HPF (Negative) 03/04/18 14:20 Urine Crystals Few amorphous HPF (Negative) 03/04/18 14:20 Urine Bacteria Moderate HPF (Negative) 03/04/18 14:20 Urine Casts 3-5 coarse granular LPF (Negative) 03/04/18 14:20 Urine Mucus Negative (Negative) 03/04/18 14:20 Urine Other Moderate yeast (Negative) 03/04/18 14:20 Ur Culture Indicated? C&s done as ordered 03/04/18 14:20 Urine Glucose Negative mg/dL (Negative) 03/04/18 14:20 Vancomycin Trough 26.1 ug/mL (10.0-20.0) H* 03/09/18 15:15
[2018-03-10] MEDS: risperiDONE 1 MG TAB 3 MG PO (20:51)
[2018-03-10] MEDS: traZODone 50 MG TAB PO (20:51)
[2018-03-10] MEDS: Insulin Glargine 300 UNITS/3 ML PEN 65 UNITS SC (21:45)
[2018-03-10] MEDS: Melatonin 3 MG TAB 9 MG PO (23:02)
[2018-03-11] VITALS (9 sets, daily range): BP systolic 130–145; BP diastolic 62–70; PULSE 50–73; RESP 18–20; TEMP 35.9–36.5; O2SAT 93–96
[2018-03-11] MEDS: Acetaminophen 325 MG TAB PO (03:53)
[2018-03-11] MEDS: Levothyroxine 75 MCG TAB 37.5 MCG PO (06:08)
[2018-03-11] MEDS: Normal Saline Flush 10 ML SYR IVP ×2 (06:15→08:51)
[2018-03-11 07:24] LABS: Abs Immature Grans 0.18 k/cumm (0.0-0.09); Absolute Basophil Count 0.04 k/cumm (0.0-0.2); Absolute Lymphocyte Count 1.05 k/cumm (1.2-3.4); Absolute Monocyte Count 0.96 k/cumm (0.11-0.7); Absolute Neutrophil Count 9.25 k/cumm (1.2-6.7); Basophils % 0.3; Eosinophils % 4.2; HCT 30.8 % (40.0-50.0); HGB 9.2 g/dL (13.5-17.5); Immature Grans % 1.5; Lymphocytes % 8.8; Mean Corp. HGB Concentration 29.9 g/dL (32.0-36.0); Mean Corpuscular Hemoglobin 22.8 pg (27.0-33.0); Mean Corpuscular Volume 76.4 fL (80-95); Mean Platelet Volume 9.7 fL (8.0-11.0); Neutrophils % 77.2; Platelet Count 409 x1000/uL (130-400); RBC 4.03 m/cumm (4.50-6.00); RBC Distribution Width 21.1 % (11.8-14.1); White Blood Cell Count 11.98 k/cumm (4.4-10.8)
[2018-03-11 07:30] LABS: Anion Gap 12.2 mmol/L (3-11); BUN 37 mg/dL (7-18); CO2 17.8 mmol/L (21.0-32.0); CREATININE 2.08 mg/dL (0.70-1.30); Calcium 8.5 mg/dL (8.5-10.1); Chloride 111 mmol/L (98-107); Estimated GFR 32.96 (mL/min/1.73m2); Glucose 132 mg/dL (70-100); Potassium 4.3 mmol/L (3.5-5.1); Sodium 141 mmol/L (136-145)
[2018-03-11] MEDS: Insulin Aspart 300 UNITS/3 ML PEN 15 UNITS SC ×3 (07:59→17:20)
[2018-03-11] MEDS: Hydrocortisone SOD SUC. 100 MG VIAL 50 MG IV (08:51)
--- NOTE | 2018-03-11 08:55 | NUR.NOTE ---
Nursing Note: Pt lethargic. Nursing having a difficult time rousing Pt. Scheduled IV steroids given. Pt verbally moaned no when asked if he wanted breakfast.will con't to monitor Pt's level of consciousness.
[2018-03-11] MEDS: Lactobacillus Acidophilus CAP 1 CAP PO ×3 (10:04→21:39)
[2018-03-11] MEDS: Terazosin 2 MG CAP 4 MG PO ×2 (10:04→21:38)
[2018-03-11] MEDS: hydrALAZINE 10 MG TAB PO ×3 (10:04→21:39)
[2018-03-11] MEDS: Magnesium Chloride 64 MG TABCR PO ×2 (10:05→21:39)
[2018-03-11] MEDS: Cyanocobalamin 500 MCG TAB 1000 MCG PO (10:05)
[2018-03-11] MEDS: cloNIDine 0.1 MG TAB 0.3 MG PO ×3 (10:05→21:38)
[2018-03-11] MEDS: amLODIPine 5 MG TAB 10 MG PO (10:05)
[2018-03-11] MEDS: Metoprolol CR 25 MG TABCR PO (10:06)
[2018-03-11] MEDS: Omeprazole 20 MG CAPCR PO (10:06)
[2018-03-11] MEDS: Ascorbic Acid 500 MG TAB PO ×2 (10:06→21:40)
[2018-03-11] MEDS: Venlafaxine 37.5 MG CAPCR 75 MG PO (10:06)
[2018-03-11] MEDS: Ferrous Sulfate 325 MG TAB PO ×2 (10:06→21:39)
[2018-03-11] MEDS: Multivitamin TAB 1 TAB PO (10:06)
[2018-03-11] MEDS: Gabapentin 300 MG CAP PO ×3 (10:06→21:39)
[2018-03-11] MEDS: carBAMazepine 100 MG CHEW PO ×3 (10:07→21:40)
[2018-03-11] MEDS: Folic Acid 1 MG TAB PO (10:07)
[2018-03-11] MEDS: Heparin 5,000 UNITS/ML VIAL 5000 UNITS SC ×2 (10:07→17:57)
[2018-03-11] MEDS: Aspirin E.C. 81 MG TABEC PO ×2 (10:07→21:39)
--- NOTE | 2018-03-11 10:07 | OT.INTREAT ---
Date of service: 03/11/18 Time of Service: 09:50 Occupational Therapy Notes Occupational Therapy Inpatient Treatment Note Date: 03/11/18 SUBJECTIVE: Pt was sitting on the side of the bed when OT arrived. He was agreeable to OT session however is getting ready to eat his breakfast and said he won't participate unless it has to do with his eating. OBJECTIVE: PAIN:no c/o pain. EATING: Pt was able to perform eating routine demonstrating increased (I) with pouring his Mrs. SOUZA onto his eggs. He attempted to cut his eggs but demonstrates decreased strength in (L) hand for (I) in cutting this at this time. He was able to perform dynamic functional activities with reaching and moving cups on his tray (I). ASSESSMENT/PLAN: Pt was receptive to increased (I) with eating routines. He would benefit from continued skilled OT intervention for progression of UE strengthening and increased (I) in eating routine. TREATMENT CODES/TIME: [id number], 16 minutes Suzanne Javier OTR/L [facility]
--- NOTE | 2018-03-11 10:18 | OTTR_ITS ---
Date of service: 03/11/18 Time of Service: 09:50 Occupational Therapy Notes Occupational Therapy Inpatient Treatment Note Date: 03/11/18 SUBJECTIVE: Pt was sitting on the side of the bed when OT arrived. He was agreeable to OT session however is getting ready to eat his breakfast and said he won't participate unless it has to do with his eating. OBJECTIVE: PAIN:no c/o pain. EATING: Pt was able to perform eating routine demonstrating increased (I) with pouring his Mrs. SOUZA onto his eggs. He attempted to cut his eggs but demonstrates decreased strength in (L) hand for (I) in cutting this at this time. He was able to perform dynamic functional activities with reaching and moving cups on his tray (I). ASSESSMENT/PLAN: Pt was receptive to increased (I) with eating routines. He would benefit from continued skilled OT intervention for progression of UE strengthening and increased (I) in eating routine. TREATMENT CODES/TIME: [id number], 16 minutes Suzanne Javier OTR/L [facility]
--- NOTE | 2018-03-11 11:15 | CMPROGNOTE_ITS ---
Care Management Progress Note S/O: Per MD; frequency of alf IV ABX still being determined; discharge plan will be dependent on frequency as the [facility] can only offer once daily IV ABX. Brendan will continue to be treated and monitored at this time and return to the [facility] when ready per MD. No change to overall plan. A: 57 year old male admitted to [facility] 03/01/18 for Hyperglycemia, encephalopathy, suspected sepsis, pneumonia P: CM will continue to monitor clinical progress and support discharge planning considerations, he will return to the [facility]-his residence-when ready per MD. He will transport via W/C Van coordinated by this commercial insurance underwriter.
--- NOTE | 2018-03-11 12:06 | PT.INTREAT ---
Date of service: 03/11/18 Time of Service: 12:06 PT Notes Inpatient Physical Therapy Treatment Note [facility] Date: 03/11/18 PRECAUTIONS: Contact, WBAT on R, Post-op boot SUBJECTIVE: Brendan is agreeable to participating in PT this morning, following some encouragement. OBJECTIVE: PAIN: No c/o pain BED MOBILITY/TRANSFERS Sit-stand: S Stand-sit: S Bed-Chair: CGA GAIT Assistive Device: FWW Weight bearing: Full Assist: CGA Distance: 20' ASSESSMENT: Patient tolerated session well without complaints. He was able to tolerate a progression in gait distance with FWW support and CGA. He would benefit from continued gait and transfer training as well as strengthening for increased independence with functional daily tasks. PLAN: Continue with PT's POC TREATMENT CODE/TIME: 15 minutes; ([id number])
[2018-03-11] MEDS: Normal Saline 500 ML 30 ML IV (13:20)
[2018-03-11] MEDS: Insulin Aspart 300 UNITS/3 ML PEN SC ×2 (13:22→17:20)
[2018-03-11] MEDS: VANCOMYCIN 1,000 MG in Normal Saline 250 ML 166.667 MG IVPB (14:23)
--- NOTE | 2018-03-11 15:04 | PT.INTREAT ---
Date of service: 03/11/18 Time of Service: 15:04 PT Notes Inpatient Physical Therapy Treatment Note [facility] Date: 03/11/18 PRECAUTIONS: Contact, WBAT on R, Post-op shoe SUBJECTIVE: Brendan is agreeable to participating in PT. OBJECTIVE: PAIN: No c/o pain BED MOBILITY/TRANSFERS Sit-supine: I Sit-stand: Min A x2 Stand-sit: S Chair-bed: CGA GAIT Assistive Device: FWW Weight bearing: Full Assist: CGA Distance: 10' THEREX: Patient completed a LE strengthening program, as per flow sheet. ASSESSMENT: Patient tolerated session well without complaint. He would benefit from continued gait and transfer training as well as strengthening for improved mobility. PLAN: Continue with PTs POC TREATMENT CODE/TIME: 20 minutes; ([id number])
--- NOTE | 2018-03-11 15:44 | PGE_ITS ---
Date of Service Date of service: 03/11/18 Time of Service: 14:30 Assessment and Plan (1) 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 2 diabetes mellitus: Current visit: Yes Status: Acute Non-healing diabetic foot ulcer, with Xray showing evidence of potential osteo of the right 5th metatarsal. Underwent 11 days of Pip-Tazo and Vancomycin - now s/p debridement with resection of the 5th MPJ - culture of the tissue via Podiatry had been with negative culture results, but now growing MRSA and a GNR. Plan on discussion with ID again once sensitivities are available - will need 6 weeks of treatment with Vanc and potentially 2nd antibiotic pending results of culture. Based on prior discussion with ID Zosyn was discontinued in favor of Ertapenem for potential suspected polymicrobial growth. Will await final culture results prior to repeat discussion with ID. (2) Chronic cholecystitis: Current visit: Yes Status: Acute Cholecystostomy drain was not changed at [facility] on 03/05/17 - per discussion with IR, there would not have been a benefit to it from the stand point of d ecreasing infection risk, as long as the drain is functioning well and continues to drain. (3) HCAP (healthcare-associated pneumonia): Current visit: No Status: Resolved S/p 5 days of therapy with Vancomycin and Pip-Tazo. Unsure if this was a true diagnosis as repeat read of CXR and repeat imaging failed to show evidence of an infiltrate. However, Sputum culture with MRSA despite the fact that patient had been on lengthy treatment with Vancomycin for MRSA bacteremia in early January. (4) MRSA bacteremia: Current visit: No Status: Resolved S/p 6 weeks of Vancomycin - now reinititated in the setting of Osteo of the foot with culture results positive for MRSA. (5) Acute on chronic kidney failure: Current visit: No Status: Resolved Resolved. Patient no longer on ARYA-I. Has lengthy history of significant hyperkalemia, and elevated K+ which he also experienced earlier this hospitalization, requiring additional dose of IV Diuretic and Kayexalate. Continue renal diet, renally dose medications, and monitor renal function. (6) Hyperkalemia: Current visit: No Status: Ruled-out Resolved. (7) Poorly controlled type 2 diabetes mellitus with circulatory disorder: Current visit: No Status: Chronic Continue lantus, sliding scale coverage and ADA diet. (8) Adrenal insufficiency: Current visit: No Status: Chronic Continue to wean stress dose steroids back to baseline prednisone. (9) DVT prophylaxis: Current visit: No Status: Acute SC Heparin. Ensure PPI. Subjective Interval history since last seen: 57 year old resident of the [facility], with a recent history of MRSA bacteremia on IV vancomycin, admitted from [facility] Emergency Department with a diagnosis of Health Care Aquired Pneumonia. Mr. Corley has been hospitalized here at [facility] with sepsis on numerous prior occasions. He has a history of Group C strep bacteremia and E. Fecalis UTI in the past, and following his discharge returned to the hospital septic and suffered a cardiopulmonary arrest necessitating a transfer to [facility]. He was treated for Choleycystitis, and as he is not a surgical candidate, he was treated conservatively with a pigtail catheter and antibiotics. He is chronically a resident at the [facility]. His other medical history includes DM, Adrenal insufficiency secondary to chronic steroid use, RA, Crohn's disease s/p Colectomy, OA, CKD with prior JESUS and resultant hyperkalemia, HTN, CAD, hypothyroidism, Obesity, and chronic pain. He's had recurrent UTIs, and also has a history of a non-healing diabetic foot ulcer. The patient was send to the ED due to worsening lethargy and hyperglycemia as noted in the Detention. While his initial CXR showed evidence of potential pneumonia vs. edema, subsequent read and repeat imaging showed no evidence of definitive acute process. His sputum did grow MRSA - of note, he has had a recent MRSA bacteremia that he had remained on Vancomycin for - he was unable to go through a KELLEE, but due to a persistent murmur was under long-term antibiotic therapy due to on 03/10. Mr. Corley was initially maintained on Vancomycin and Pip-Tazo, underwent a debridement of his wound via Podiatry, with cultures now growing MRSA and a GNR. The patient had also developed hyperkalemia recently despite a stable creatinine, necessitating treatment with additional lasix and Kayexalate. His potassium is normalized again this morning. No other events reported. He remains afebrile. Exam Narrative Exam Narrative: General: Patient appears comfortable laying bed, asleep but easily arousable, obese, AAOX3, NAD Neck: Supple CV: Regular, nontachycardic, S1S2 Pulmonary: Clear to auscultation bilaterally, no crackles, wheezing, or rhonchi Abdomen: + Bowel Sounds, soft, nontender, nondistended, obese in contour. Vascular: B/l lower extremity edema Psych: Normal mood and affect. Objective Objective Clinical Data: Abnormal lab results 03/11/18 03/11/18 Range/Units 06:25 06:25 WBC 11.98 H (4.4-10.8) k/cumm RBC 4.03 L (4.50-6.00) m/cumm Hgb 9.2 L (13.5-17.5) g/dL Hct 30.8 L (40.0-50.0) % MCV 76.4 L (80-95) fL MCH 22.8 L (27.0-33.0) pg MCHC 29.9 L (32.0-36.0) g/dL RDW 21.1 H (11.8-14.1) % Plt Count 409 H (130-400) x1000/uL Absolute Neutrophils 9.25 H (1.2-6.7) k/cumm Absolute Lymphocytes 1.05 L (1.2-3.4) k/cumm Absolute Monocytes 0.96 H (0.11-0.7) k/cumm Chloride 111 H (98-107) mmol/L Carbon Dioxide 17.8 L (21.0-32.0) mmol/L Anion Gap 12.2 H (3-11) mmol/L BUN 37 H (7-18) mg/dL Creatinine 2.08 H (0.70-1.30) mg/dL Glucose 132 H (70-100) mg/dL Vital Signs Temperature 35.9 C L 03/11/18 11:40 Temperature Source Tympanic 03/11/18 11:40 Pulse 50 L 03/11/18 11:40 Pulse Rhythm Regular 03/11/18 09:30 Pulse 66 03/01/18 10:10 Respiratory Rate 20 03/11/18 11:40 Respiratory Effort Non-Labored 03/11/18 09:30 Respiratory Depth Normal 03/11/18 09:30 Respiratory Pattern Normal 03/11/18 09:30 Blood Pressure 130/67 03/11/18 11:40 Blood Pressure Mean 86 03/01/18 10:01 Blood Pressure Position Supine 03/01/18 09:11 Pulse Oximetry 96 01/16/19 11:40 Oxygen Delivery Method Room Air 03/11/18 11:40 Oxygen Flow Rate 0 03/11/18 11:40 Pain Level 0 03/11/18 11:40 Comment 03/05/18 07:35 Intake & Output 03/10/18 03/11/18 03/11/18 23:59 11:59 23:59 Intake Total 1969 / 3677.5 1140 / 1979 840 / 1979 Output Total 1850 / 4275 2775 / 3575 800 / 3575 Balance 120 / -597.5 -1635 / -1595 40 / -1595 Weight 104.9 kg Intake: IV 350 / 1817.5 120 / 120 Oral 1620 / 1860 1140 / 1860 720 / 1860 Output: Drainage 625 / 825 200 / 825 Right Upper Abdomen 625 / 825 200 / 825 Urine 1550 / 3175 1150 / 1350 200 / 1350 Stool 300 / 550 1000 / 1400 400 / 1400 Other: Urine Color Yellow Yellow Yellow Urine Appearance Clear Clear Clear Urine Odor Normal Voiding Methods Urinal Urinal Laboratory Results WBC 11.98 k/cumm (4.4-10.8) H 03/11/18 06:25 RBC 4.03 m/cumm (4.50-6.00) L 03/11/18 06:25 Hgb 9.2 g/dL (13.5-17.5) L 03/11/18 06:25 Hct 30.8 % (40.0-50.0) L 03/11/18 06:25 MCV 76.4 fL (80-95) L 03/11/18 06:25 MCH 22.8 pg (27.0-33.0) L 03/11/18 06:25 MCHC 29.9 g/dL (32.0-36.0) L 03/11/18 06:25 RDW 21.1 % (11.8-14.1) H 03/11/18 06:25 Plt Count 409 x1000/uL (130-400) H 03/11/18 06:25 MPV 9.7 fL (8.0-11.0) 03/11/18 06:25 Abs Immat Gran (auto) Cancelled 03/05/18 05:35 Immature Gran % 1.5 03/11/18 06:25 Neutrophils % 77.2 03/11/18 06:25 Lymphocytes % 8.8 03/11/18 06:25 Monocytes % 8.0 03/11/18 06:25 Eosinophils % 4.2 03/11/18 06:25 Basophils % 0.3 03/11/18 06:25 Absolute Neutrophils 9.25 k/cumm (1.2-6.7) H 03/11/18 06:25 Band Neutrophils 2.0 % 03/08/18 06:15 Absolute Lymphocytes 1.05 k/cumm (1.2-3.4) L 03/11/18 06:25 Absolute Monocytes 0.96 k/cumm (0.11-0.7) H 03/11/18 06:25 Absolute Eosinophils 0.50 k/cumm (0.0-0.7) 03/11/18 06:25 Absolute Basophils 0.04 k/cumm (0.0-0.2) 03/11/18 06:25 Metamyelocytes 1.0 % 03/10/18 06:15 Myelocytes 2.0 % 03/10/18 06:15 Promyelocytes Cancelled 03/05/18 05:35 Nucleated RBCs Cancelled 03/05/18 05:35 Differential Comment Manual differential 03/10/18 06:15 Atypical Lymphocytes Cancelled 03/05/18 05:35 Other Cell Type Cancelled 03/05/18 05:35 RBC Morphology See below 03/10/18 06:15 Polychromasia Present 03/02/18 07:00 Hypochromasia 3+ 03/10/18 06:15 Poikilocytosis 3+ 03/10/18 06:15 Basophilic Stippling Cancelled 03/05/18 05:35 Anisocytosis 3+ 03/10/18 06:15 Microcytosis 3+ 03/10/18 06:15 Macrocytosis Cancelled 03/05/18 05:35 Spherocytes Cancelled 03/05/18 05:35 Target Cells Cancelled 03/05/18 05:35 Tear Drop Cells 2+ 03/01/18 09:38 Ovalocytes 2+ 03/02/18 07:00 Stomatocytes Cancelled 03/05/18 05:35 [place] Bodies Cancelled 03/05/18 05:35 Sathya Cells Cancelled 03/05/18 05:35 Acanthocytes (Spur) Cancelled 03/05/18 05:35 Schistocytes Cancelled 03/05/18 05:35 PT 9.6 sec (9.3-11.0) 03/05/18 13:12 INR 1.0 (0.9-1.1) 03/05/18 13:12 Sodium 141 mmol/L (136-145) 03/11/18 06:25 Potassium 4.3 mmol/L (3.5-5.1) 03/11/18 06:25 Chloride 111 mmol/L (98-107) H 03/11/18 06:25 Carbon Dioxide 17.8 mmol/L (21.0-32.0) L 03/11/18 06:25 Anion Gap 12.2 mmol/L (3-11) H 03/11/18 06:25 BUN 37 mg/dL (7-18) H 03/11/18 06:25 Creatinine 2.08 mg/dL (0.70-1.30) H 03/11/18 06:25 Estimated GFR/1.73 m2 32.96 (mL/min/1.73m2) 03/11/18 06:25 Glucose 132 mg/dL (70-100) H 03/11/18 06:25 Lactate 1.1 mmol/L (0.6-1.4) 03/02/18 07:00 Calcium 8.5 mg/dL (8.5-10.1) 03/11/18 06:25 Magnesium 2.1 mg/dL (1.8-2.4) 03/07/18 06:17 Total Bilirubin 0.2 mg/dL (0.2-1.0) 03/01/18 09:38 Conjugated Bilirubin 0.08 mg/dL (0.00-0.20) 03/01/18 09:38 AST 3 U/L (15-37) L 03/01/18 09:38 ALT 13 U/L (12-78) 03/01/18 09:38 Alkaline Phosphatase 273 U/L (46-116) H 03/01/18 09:38 Creatine Kinase 15 U/L (39-308) L 03/08/18 21:20 Total Protein 7.1 g/dL (6.4-8.2) 03/01/18 09:38 Albumin 2.3 g/dL (3.4-5.0) L 03/01/18 09:38 TSH 0.61 uIU/mL (0.358-3.74) 03/02/18 07:00 Urine Color Yellow (Yellow) 03/04/18 14:20 Urine Clarity Clear 03/04/18 14:20 Urine pH 6.0 (5-8) 03/04/18 14:20 Ur Specific [place] 1.020 (1.005-1.025) 03/04/18 14:20 Urine Protein 30 mg/dL (Negative) H 03/04/18 14:20 Urine Ketones Negative mg/dL (Negative) 03/04/18 14:20 Urine Blood Trace-intact (Negative) H 03/04/18 14:20 Urine Nitrite Negative (Negative) 03/04/18 14:20 Urine Bilirubin Negative (Negative) 03/04/18 14:20 Urine Urobilinogen 0.2 EU/dL (Up TO 0.2) 03/04/18 14:20 Ur Leukocyte Esterase Small (Negative) H 03/04/18 14:20 Urine RBC 3-5 (0-2) H 03/04/18 14:20 Urine WBC >50 HPF (0-5) 03/04/18 14:20 Ur Epithelial Cells Negative HPF (Negative) 03/04/18 14:20 Urine Crystals Few amorphous HPF (Negative) 03/04/18 14:20 Urine Bacteria Moderate HPF (Negative) 03/04/18 14:20 Urine Casts 3-5 coarse granular LPF (Negative) 03/04/18 14:20 Urine Mucus Negative (Negative) 03/04/18 14:20 Urine Other Moderate yeast (Negative) 03/04/18 14:20 Ur Culture Indicated? C&s done as ordered 03/04/18 14:20 Urine Glucose Negative mg/dL (Negative) 03/04/18 14:20 Vancomycin Trough 26.1 ug/mL (10.0-20.0) H* 03/09/18 15:15
[2018-03-11] MEDS: risperiDONE 1 MG TAB 3 MG PO (21:38)
[2018-03-11] MEDS: traZODone 50 MG TAB PO (21:39)
[2018-03-11] MEDS: Insulin Glargine 300 UNITS/3 ML PEN 65 UNITS SC (23:14)
[2018-03-12] VITALS (8 sets, daily range): BP systolic 128–149; BP diastolic 58–74; PULSE 56–78; RESP 19–20; TEMP 35.9–37.4; O2SAT 91–97
[2018-03-12] MEDS: Melatonin 3 MG TAB 9 MG PO ×2 (00:27→23:32)
[2018-03-12] MEDS: Heparin 5,000 UNITS/ML VIAL 5000 UNITS SC ×4 (00:27→23:33)
[2018-03-12] MEDS: Acetaminophen 325 MG TAB PO ×2 (05:53→23:40)
[2018-03-12] MEDS: Levothyroxine 75 MCG TAB 37.5 MCG PO (05:53)
[2018-03-12] MEDS: Normal Saline Flush 10 ML SYR IVP ×3 (06:23→15:51)
[2018-03-12 06:52] LABS: Abs Immature Grans 0.12 k/cumm (0.0-0.09); Absolute Eosinophil Count 0.53 k/cumm (0.0-0.7); Absolute Lymphocyte Count 0.97 k/cumm (1.2-3.4); Absolute Monocyte Count 0.77 k/cumm (0.11-0.7); Absolute Neutrophil Count 9.54 k/cumm (1.2-6.7); Basophils % 0.3; Eosinophils % 4.4; HCT 30.2 % (40.0-50.0); Lymphocytes % 8.1; Mean Corp. HGB Concentration 29.8 g/dL (32.0-36.0); Mean Corpuscular Hemoglobin 22.8 pg (27.0-33.0); Mean Corpuscular Volume 76.6 fL (80-95); Monocytes % 6.4; Neutrophils % 79.8; Platelet Count 395 x1000/uL (130-400); RBC 3.94 m/cumm (4.50-6.00); RBC Distribution Width 21.6 % (11.8-14.1); White Blood Cell Count 11.96 k/cumm (4.4-10.8)
[2018-03-12 06:53] LABS: Absolute Basophil Count 0.04 k/cumm (0.0-0.2)
[2018-03-12 07:06] LABS: Anion Gap 11.2 mmol/L (3-11); BUN 34 mg/dL (7-18); CO2 18.8 mmol/L (21.0-32.0); CREATININE 2.04 mg/dL (0.70-1.30); Calcium 8.7 mg/dL (8.5-10.1); Chloride 111 mmol/L (98-107); Estimated GFR 33.71 (mL/min/1.73m2); Glucose 139 mg/dL (70-100); Magnesium 1.9 mg/dL (1.8-2.4); Potassium 4.2 mmol/L (3.5-5.1); Sodium 141 mmol/L (136-145)
[2018-03-12] MEDS: Insulin Aspart 300 UNITS/3 ML PEN 15 UNITS SC (09:00)
[2018-03-12] MEDS: hydrALAZINE 10 MG TAB PO ×3 (09:01→21:07)
[2018-03-12] MEDS: Lactobacillus Acidophilus CAP 1 CAP PO ×3 (09:01→21:07)
[2018-03-12] MEDS: Folic Acid 1 MG TAB PO (09:01)
[2018-03-12] MEDS: Venlafaxine 37.5 MG CAPCR 75 MG PO (09:01)
[2018-03-12] MEDS: Metoprolol CR 25 MG TABCR PO (09:01)
[2018-03-12] MEDS: Cyanocobalamin 500 MCG TAB 1000 MCG PO (09:01)
[2018-03-12] MEDS: carBAMazepine 100 MG CHEW PO ×3 (09:01→21:08)
[2018-03-12] MEDS: Gabapentin 300 MG CAP PO ×3 (09:01→21:08)
[2018-03-12] MEDS: Magnesium Chloride 64 MG TABCR PO ×2 (09:01→21:07)
[2018-03-12] MEDS: Multivitamin TAB 1 TAB PO (09:02)
[2018-03-12] MEDS: Ascorbic Acid 500 MG TAB PO ×2 (09:02→21:08)
[2018-03-12] MEDS: Terazosin 2 MG CAP 4 MG PO ×2 (09:02→21:07)
[2018-03-12] MEDS: hydrOXYzine HCL 25 MG TAB PO (09:02)
[2018-03-12] MEDS: amLODIPine 5 MG TAB 10 MG PO (09:02)
[2018-03-12] MEDS: Ferrous Sulfate 325 MG TAB PO ×2 (09:02→21:07)
[2018-03-12] MEDS: Aspirin E.C. 81 MG TABEC PO ×2 (09:02→21:07)
[2018-03-12] MEDS: Omeprazole 20 MG CAPCR PO (09:02)
[2018-03-12] MEDS: cloNIDine 0.1 MG TAB 0.3 MG PO ×3 (09:02→21:08)
[2018-03-12] MEDS: Nystatin POWDER 60 GM JAR TP (09:02)
--- NOTE | 2018-03-12 10:20 | OT.INTREAT ---
Date of service: 03/12/18 Time of Service: 08:30 Occupational Therapy Notes Occupational Therapy Inpatient Treatment Note Date: 03/12/18 PRECAUTIONS: Droplet precautions, fall risk SUBJECTIVE: Pt was lying in bed when OT arrived. Nursing was getting ready to change pts bedding and pt was agreeable to OT session. OBJECTIVE: PAIN:Pt complained of increased stiffness in (B) UE, he reports that he didn't do anything different he just couldn't move them as well as he would like to this morning. FUNCTIONAL MOBILITY Rolling L/R: (I) with min vc BATHING: Upper Body: In sitting position was able to wash face and hands (I) with max (A) for set up. DRESSING: Upper Extremity: Mod (A) with [facility] gown pt demonstrated increased (I) with use of (L) UE to put (R) arm into sleeve of gown. TOILETING: Lying in bed pt was (I) with use of urinal. EATING: Sitting on side of the bed with transition of body position performed with PST SUPERVISOR. Pt required max (A) with opening of containers and packages but was (I) with pouring sugar into tea and coffee, (I) with stirring liquids, pt was (I) with functional grasp and release patterns to move items throughout his tray and demonstrated increased (I) with lifting cover off from his plate this morning. Pt still required max (A) for cutting of his food with utensils. ASSESSMENT/PLAN: Pt demonstrated increased gross and fine motor control during eating routine. He still requires max (A) for cutting and for opening containers but once open pt was able to perform (I). Pt would benefit from continued skilled OT intervention for progression of (I) in opening of containers and packages as well as increased (I) in strengthening routine for (B) UE. TREATMENT CODES/TIME: [id number], 31 minutes (08:30) Suzanne Javier OTR/[facility]
--- NOTE | 2018-03-12 10:29 | OTTR_ITS ---
Date of service: 03/12/18 Time of Service: 08:30 Occupational Therapy Notes Occupational Therapy Inpatient Treatment Note Date: 03/12/18 PRECAUTIONS: Droplet precautions, fall risk SUBJECTIVE: Pt was lying in bed when OT arrived. Nursing was getting ready to change pts bedding and pt was agreeable to OT session. OBJECTIVE: PAIN:Pt complained of increased stiffness in (B) UE, he reports that he didn't do anything different he just couldn't move them as well as he would like to this morning. FUNCTIONAL MOBILITY Rolling L/R: (I) with min vc BATHING: Upper Body: In sitting position was able to wash face and hands (I) with max (A) for set up. DRESSING: Upper Extremity: Mod (A) with [facility] gown pt demonstrated increased (I) with use of (L) UE to put (R) arm into sleeve of gown. TOILETING: Lying in bed pt was (I) with use of urinal. EATING: Sitting on side of the bed with transition of body position performed with HELP DESK SUPERVISOR. Pt required max (A) with opening of containers and packages but was (I) with pouring sugar into tea and coffee, (I) with stirring liquids, pt was (I) with functional grasp and release patterns to move items throughout his tray and demonstrated increased (I) with lifting cover off from his plate this morning. Pt still required max (A) for cutting of his food with utensils. ASSESSMENT/PLAN: Pt demonstrated increased gross and fine motor control during eating routine. He still requires max (A) for cutting and for opening containers but once open pt was able to perform (I). Pt would benefit from continued skilled OT intervention for progression of (I) in opening of containers and packages as well as increased (I) in strengthening routine for (B) UE. TREATMENT CODES/TIME: [id number], 31 minutes (08:30) Suzanne Javier OTR/[facility]
--- NOTE | 2018-03-12 11:26 | PT.INTREAT ---
Date of service: 03/12/18 Time of Service: 11:26 PT Notes Inpatient Physical Therapy Treatment Note [facility] Date: 03/12/18 PRECAUTIONS: Contact, WBAT on R, Post-op boot SUBJECTIVE: Brednan states that he is feeling weak this morning, however, states that he does not know why. OBJECTIVE: PAIN: No c/o pain BED MOBILITY/TRANSFERS Supine-sit: Mod A Sit-supine: I Sit-stand: Mod A Stand-sit: SBA GAIT Assistive Device: FWW Weight bearing: Full Assist: CGA Distance: 5 side steps x2 THEREX: Patient completed ankle pumps x30, bilaterally, although refused all other ther ex this morning. ASSESSMENT: Patient appears to limited today, due to feelings of global weakness. He required significantly more assist today for bed mobility and PLAN: Continue with PT's POC TREATMENT CODE/TIME: 20 minutes; ([id number])
[2018-03-12] MEDS: VANCOMYCIN 1,000 MG in Normal Saline 250 ML 166 MG IVPB ×2 (13:44→15:52)
--- NOTE | 2018-03-12 15:41 | PT.INNT ---
Date of service: 03/12/18 Time of Service: 15:41 PT Notes 03/12/18 Patient sleeping, unable to wake patient for PT session. Will attempt to resume PT services tomorrow morning.
--- NOTE | 2018-03-12 16:33 | PDOC.CMPRO ---
Care Management Progress Note S/O: Brendan was less active today per PT; Elsa. He was sleeping when CM attempted to meet with him. Per RN; Susana, Brendan was responsive as needed. Per MD; frequency of termite treater helper IV ABX still being determined; discharge plan will be dependent on frequency as the [facility] can only offer once daily IV ABX. Brendan will continue to be treated and monitored at this time and return to the [facility] when ready per MD. No change to overall plan. A: 57 year old male admitted to [facility] 03/01/18 for Hyperglycemia, encephalopathy, suspected sepsis, pneumonia P: CM will continue to monitor clinical progress and support discharge planning considerations, he will return to the [facility]-his residence-when ready per MD. He will transport via W/C Van coordinated by this flex o writer operator.
--- NOTE | 2018-03-12 16:37 | CMPROGNOTE_ITS ---
Care Management Progress Note S/O: Brendan was less active today per PT; Elsa. He was sleeping when CM attempted to meet with him. Per RN; Susana, Brendan was responsive as needed. Per MD; frequency of exterminator IV ABX still being determined; discharge plan will be dependent on frequency as the [facility] can only offer once daily IV ABX. Brendan will continue to be treated and monitored at this time and return to the [facility] when ready per MD. No change to overall plan. A: 57 year old male admitted to [facility] 03/01/18 for Hyperglycemia, encephalopathy, suspected sepsis, pneumonia P: CM will continue to monitor clinical progress and support discharge planning considerations, he will return to the [facility]-when ready per MD. He will transport via W/C Van coordinated by this screenplay writer.
--- NOTE | 2018-03-12 18:30 | W.PM.PROGNOT ---
Date of Service Date of service: 03/12/18 Time of Service: 18:30 Assessment and Plan (1) 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 2 diabetes mellitus: Current visit: Yes Status: Acute Non-healing diabetic foot ulcer, with Xray showing evidence of potential osteo of the right 5th metatarsal. Underwent 11 days of Pip-Tazo and Vancomycin - now s/p debridement on 03/06 with resection of the 5th MPJ - culture of the tissue via Podiatry had been with negative, but now growing MRSA and Proteus Mirabilis. Plan on discussion with ID again once sensitivities are available - will need 6 weeks of treatment with Vanc and 2nd antibiotic pending results of culture. Based on prior discussion with ID Zosyn was discontinued in favor of Ertapenem for potential suspected polymicrobial growth. Plan on repeat discussion with ID on final antibiotic selection and duration. (2) Chronic cholecystitis: Current visit: Yes Status: Acute Cholecystostomy drain was not changed at [facility] on 03/05/17 - per discussion with IR, there would not have been a benefit to it from the stand point of decreasing infection risk, as long as the drain is functioning well and continues to drain. (3) HCAP (healthcare-associated pneumonia): Current visit: No Status: Resolved S/p 5 days of therapy with Vancomycin and Pip-Tazo. Unsure if this was a true diagnosis as repeat read of CXR and repeat imaging failed to show evidence of an infiltrate. However, Sputum culture with MRSA despite the fact that patient had been on lengthy treatment with Vancomycin for MRSA bacteremia in early January. (4) MRSA bacteremia: Current visit: No Status: Resolved S/p 6 weeks of Vancomycin - now reinititated in the setting of Osteo of the foot with culture results positive for MRSA. (5) Acute on chronic kidney failure: Current visit: No Status: Resolved Resolved. Patient no longer on ARYA-I. Has lengthy history of significant hyperkalemia, and elevated K+ which he also experienced earlier this hospitalization, requiring additional dose of IV Diuretic and Kayexalate. Continue renal low potassium diet, renally dose medications, and monitor renal function. (6) Hyperkalemia: Current visit: No Status: Ruled-out Resolved. (7) Poorly controlled type 2 diabetes mellitus with circulatory disorder: Current visit: No Status: Chronic Continue lantus, sliding scale coverage and ADA diet. (8) Adrenal insufficiency: Current visit: No Status: Chronic Continue to wean stress dose steroids back to baseline prednisone. (9) DVT prophylaxis: Current visit: No Status: Acute SC Heparin. Ensure PPI. Subjective Interval history since last seen: 57 year old resident of the [facility], with a recent history of MRSA bacteremia on IV vancomycin, admitted from [facility] Emergency Department with a diagnosis of Health Care Aquired Pneumonia. Mr. Corley has been hospitalized here at [facility] with sepsis on numerous prior occasions. He has a history of Group C strep bacteremia and E. Fecalis UTI in the past, and following his discharge returned to the hospital septic and suffered a cardiopulmonary arrest necessitating a transfer to [facility]. He was treated for Choleycystitis, and as he is not a surgical candidate, he was treated conservatively with a pigtail catheter and antibiotics. He is chronically a resident at the [facility]. His other medical history includes DM, Adrenal insufficiency secondary to chronic steroid use, RA, Crohn's disease s/p Colectomy, OA, CKD with prior JESUS and resultant hyperkalemia, HTN, CAD, hypothyroidism, Obesity, and chronic pain. He's had recurrent UTIs, and also has a history of a non-healing diabetic foot ulcer. The patient was send to the ED due to worsening lethargy and hyperglycemia as noted in the [facility]. While his initial CXR showed evidence of potential pneumonia vs. edema, subsequent read and repeat imaging showed no evidence of definitive acute process. His sputum did grow MRSA - of note, he has had a recent MRSA bacteremia that he had remained on Vancomycin for - he was unable to go through a KELLEE, but due to a persistent murmur was under long-term antibiotic therapy due to on 03/10. Mr. Corley was initially maintained on Vancomycin and Pip-Tazo, underwent a debridement of his wound via Podiatry, with cultures now growing MRSA and a GNR, speciated to Proteus Mirabilis. She is also growing Staph Epidermidis on surgical culture results. The patient had also developed hyperkalemia recently despite a stable creatinine, necessitating treatment with additional lasix and Kayexalate. His potassium is normalized again this morning. No other events reported. He remains afebrile. Exam Narrative Exam Narrative: General: Patient appears comfortable sitting up out of bed inchair, asleep but easily arousable, obese, AAOX3, NAD Neck: Supple CV: Regular, nontachycardic, S1S2 Pulmonary: Clear to auscultation bilaterally, no crackles, wheezing, or rhonchi Abdomen: + Bowel Sounds, soft, nontender, nondistended, obese in contour. Vascular: B/l lower extremity edema Musculoskeletal: Right foot with bandage in place - appears c/d/i Psych: Normal mood and affect. Objective Objective Clinical Data: Abnormal lab results 03/12/18 03/12/18 Range/Units 06:25 06:25 WBC 11.96 H (4.4-10.8) k/cumm RBC 3.94 L (4.50-6.00) m/cumm Hgb 9.0 L (13.5-17.5) g/dL Hct 30.2 L (40.0-50.0) % MCV 76.6 L (80-95) fL MCH 22.8 L (27.0-33.0) pg MCHC 29.8 L (32.0-36.0) g/dL RDW 21.6 H (11.8-14.1) % Absolute Neutrophils 9.54 H (1.2-6.7) k/cumm Absolute Lymphocytes 0.97 L (1.2-3.4) k/cumm Absolute Monocytes 0.77 H (0.11-0.7) k/cumm Chloride 111 H (98-107) mmol/L Carbon Dioxide 18.8 L (21.0-32.0) mmol/L Anion Gap 11.2 H (3-11) mmol/L BUN 34 H (7-18) mg/dL Creatinine 2.04 H (0.70-1.30) mg/dL Glucose 139 H (70-100) mg/dL Vital Signs Temperature 36.5 C 03/12/18 17:02 Temperature Source Tympanic 03/12/18 17:02 Pulse 59 L 03/12/18 17:02 Pulse Rhythm Regular 03/12/18 16:01 Pulse 66 03/01/18 10:10 Respiratory Rate 20 03/12/18 17:02 Respiratory Effort Non-Labored 03/12/18 16:01 Respiratory Depth Normal 03/12/18 16:01 Respiratory Pattern Normal 03/12/18 16:01 Blood Pressure 142/61 H 03/12/18 17:02 Blood Pressure Mean 86 03/01/18 10:01 Blood Pressure Position Supine 03/01/18 09:11 Pulse Oximetry 91 L 03/12/18 17:02 Oxygen Delivery Method Room Air 03/12/18 17:02 Oxygen Flow Rate 0 03/12/18 17:02 Pain Level 0 03/11/18 11:40 Comment 03/05/18 07:35 Intake & Output 03/11/18 03/12/18 03/12/18 23:59 11:59 23:59 Intake Total 1720 / 2860 600 / 850 250 / 850 Output Total 2300 / 5075 2600 / 2600 Balance -580 / -2215 -2000 / -1750 250 / -1750 Weight 105.7 kg Intake: IV 370 / 370 250 / 250 Oral 1200 / 2340 480 / 480 Injectate 150 / 150 120 / 120 Right Upper Abdomen 150 / 150 120 / 120 Output: Drainage 200 / 825 250 / 250 Right Upper Abdomen 200 / 825 250 / 250 Urine 1100 / 2250 800 / 800 Stool 1000 / 2000 1550 / 1550 Other: Urine Color Yellow Yellow Urine Appearance Clear Clear Urine Odor None Voiding Methods Urinal Urinal Laboratory Results WBC 11.96 k/cumm (4.4-10.8) H 03/12/18 06:25 RBC 3.94 m/cumm (4.50-6.00) L 03/12/18 06:25 Hgb 9.0 g/dL (13.5-17.5) L 03/12/18 06:25 Hct 30.2 % (40.0-50.0) L 03/12/18 06:25 MCV 76.6 fL (80-95) L 03/12/18 06:25 MCH 22.8 pg (27.0-33.0) L 03/12/18 06:25 MCHC 29.8 g/dL (32.0-36.0) L 03/12/18 06:25 RDW 21.6 % (11.8-14.1) H 03/12/18 06:25 Plt Count 395 x1000/uL (130-400) 03/12/18 06:25 MPV 10.0 fL (8.0-11.0) 03/12/18 06:25 Abs Immat Gran (auto) Cancelled 03/05/18 05:35 Immature Gran % 1.0 03/12/18 06:25 Neutrophils % 79.8 03/12/18 06:25 Lymphocytes % 8.1 03/12/18 06:25 Monocytes % 6.4 03/12/18 06:25 Eosinophils % 4.4 03/12/18 06:25 Basophils % 0.3 03/12/18 06:25 Absolute Neutrophils 9.54 k/cumm (1.2-6.7) H 03/12/18 06:25 Band Neutrophils 2.0 % 03/08/18 06:15 Absolute Lymphocytes 0.97 k/cumm (1.2-3.4) L 03/12/18 06:25 Absolute Monocytes 0.77 k/cumm (0.11-0.7) H 03/12/18 06:25 Absolute Eosinophils 0.53 k/cumm (0.0-0.7) 03/12/18 06:25 Absolute Basophils 0.04 k/cumm (0.0-0.2) 03/12/18 06:25 Metamyelocytes 1.0 % 03/10/18 06:15 Myelocytes 2.0 % 03/10/18 06:15 Promyelocytes Cancelled 03/05/18 05:35 Nucleated RBCs Cancelled 03/05/18 05:35 Differential Comment Manual differential 03/10/18 06:15 Atypical Lymphocytes Cancelled 03/05/18 05:35 Other Cell Type Cancelled 03/05/18 05:35 RBC Morphology See below 03/10/18 06:15 Polychromasia Present 03/02/18 07:00 Hypochromasia 3+ 03/10/18 06:15 Poikilocytosis 3+ 03/10/18 06:15 Basophilic Stippling Cancelled 03/05/18 05:35 Anisocytosis 3+ 03/10/18 06:15 Microcytosis 3+ 03/10/18 06:15 Macrocytosis Cancelled 03/05/18 05:35 Spherocytes Cancelled 03/05/18 05:35 Target Cells Cancelled 03/05/18 05:35 Tear Drop Cells 2+ 03/01/18 09:38 Ovalocytes 2+ 03/02/18 07:00 Stomatocytes Cancelled 03/05/18 05:35 [place] Bodies Cancelled 03/05/18 05:35 [place] Cells Cancelled 03/05/18 05:35 Acanthocytes (Spur) Cancelled 03/05/18 05:35 Schistocytes Cancelled 03/05/18 05:35 PT 9.6 sec (9.3-11.0) 03/05/18 13:12 INR 1.0 (0.9-1.1) 03/05/18 13:12 Sodium 141 mmol/L (136-145) 03/12/18 06:25 Potassium 4.2 mmol/L (3.5-5.1) 03/12/18 06:25 Chloride 111 mmol/L (98-107) H 03/12/18 06:25 Carbon Dioxide 18.8 mmol/L (21.0-32.0) L 03/12/18 06:25 Anion Gap 11.2 mmol/L (3-11) H 03/12/18 06:25 BUN 34 mg/dL (7-18) H 03/12/18 06:25 Creatinine 2.04 mg/dL (0.70-1.30) H 03/12/18 06:25 Estimated GFR/1.73 m2 33.71 (mL/min/1.73m2) 03/12/18 06:25 Glucose 139 mg/dL (70-100) H 03/12/18 06:25 Lactate 1.1 mmol/L (0.6-1.4) 03/02/18 07:00 Calcium 8.7 mg/dL (8.5-10.1) 03/12/18 06:25 Magnesium 1.9 mg/dL (1.8-2.4) 03/12/18 06:25 Total Bilirubin 0.2 mg/dL (0.2-1.0) 03/01/18 09:38 Conjugated Bilirubin 0.08 mg/dL (0.00-0.20) 03/01/18 09:38 AST 3 U/L (15-37) L 03/01/18 09:38 ALT 13 U/L (12-78) 03/01/18 09:38 Alkaline Phosphatase 273 U/L (46-116) H 03/01/18 09:38 Creatine Kinase 15 U/L (39-308) L 03/08/18 21:20 Total Protein 7.1 g/dL (6.4-8.2) 03/01/18 09:38 Albumin 2.3 g/dL (3.4-5.0) L 03/01/18 09:38 TSH 0.61 uIU/mL (0.358-3.74) 03/02/18 07:00 Urine Color Yellow (Yellow) 03/04/18 14:20 Urine Clarity Clear 03/04/18 14:20 Urine pH 6.0 (5-8) 03/04/18 14:20 Ur Specific [place] 1.020 (1.005-1.025) 03/04/18 14:20 Urine Protein 30 mg/dL (Negative) H 03/04/18 14:20 Urine Ketones Negative mg/dL (Negative) 03/04/18 14:20 Urine Blood Trace-intact (Negative) H 03/04/18 14:20 Urine Nitrite Negative (Negative) 03/04/18 14:20 Urine Bilirubin Negative (Negative) 03/04/18 14:20 Urine Urobilinogen 0.2 EU/dL (Up TO 0.2) 03/04/18 14:20 Ur Leukocyte Esterase Small (Negative) H 03/04/18 14:20 Urine RBC 3-5 (0-2) H 03/04/18 14:20 Urine WBC >50 HPF (0-5) 03/04/18 14:20 Ur Epithelial Cells Negative HPF (Negative) 03/04/18 14:20 Urine Crystals Few amorphous HPF (Negative) 03/04/18 14:20 Urine Bacteria Moderate HPF (Negative) 03/04/18 14:20 Urine Casts 3-5 coarse granular LPF (Negative) 03/04/18 14:20 Urine Mucus Negative (Negative) 03/04/18 14:20 Urine Other Moderate yeast (Negative) 03/04/18 14:20 Ur Culture Indicated? C&s done as ordered 03/04/18 14:20 Urine Glucose Negative mg/dL (Negative) 03/04/18 14:20 Vancomycin Trough 26.1 ug/mL (10.0-20.0) H* 03/09/18 15:15
[2018-03-12] MEDS: risperiDONE 1 MG TAB 3 MG PO (21:08)
[2018-03-12] MEDS: Insulin Glargine 300 UNITS/3 ML PEN 65 UNITS SC (21:08)
[2018-03-12] MEDS: traZODone 50 MG TAB PO (21:08)
[2018-03-12] MEDS: Insulin Aspart 300 UNITS/3 ML PEN SC (21:10)
--- NOTE | 2018-03-13 03:22 | NUR.NOTE ---
Nursing Note: Brendan has refused to use the regular call light overnight. He has in the past as early as today used his call murphy. He has instead spent his time yelling in his room. During the night I asked Brendan to use the call light instead of yell as there are other patients that are being disturbed. He states he cannot use the call light. A pancake call light was placed in his room and he showed that he is able to use it. We discussed that he can have his door open if he stops yelling and uses his call light, he agrees.
[2018-03-13 03:40] VITALS: BP 136/59; PULSE 92; RESP 20; TEMP 36.7; O2SAT 92
[2018-03-13] MEDS: Levothyroxine 75 MCG TAB 37.5 MCG PO (06:42)
[2018-03-13] MEDS: Normal Saline Flush 10 ML SYR IVP ×3 (06:56→21:06)
[2018-03-13 07:30] VITALS: BP 148/71; PULSE 63; RESP 20; TEMP 35.9; O2SAT 92
[2018-03-13 07:51] LABS: Anion Gap 10.5 mmol/L (3-11); BUN 35 mg/dL (7-18); CO2 16.5 mmol/L (21.0-32.0); CREATININE 2.26 mg/dL (0.70-1.30); Calcium 8.6 mg/dL (8.5-10.1); Chloride 113 mmol/L (98-107); Estimated GFR 29.95 (mL/min/1.73m2); Glucose 121 mg/dL (70-100); Potassium 4.5 mmol/L (3.5-5.1); Sodium 140 mmol/L (136-145)
[2018-03-13 07:54] LABS: Abs Immature Grans 0.14 k/cumm (0.0-0.09); Absolute Basophil Count 0.03 k/cumm (0.0-0.2); Basophils % 0.2; Eosinophils % 4.5; HCT 31.2 % (40.0-50.0); HGB 9.5 g/dL (13.5-17.5); Immature Grans % 1.1; Mean Corp. HGB Concentration 30.4 g/dL (32.0-36.0); Mean Corpuscular Hemoglobin 23.4 pg (27.0-33.0); Mean Corpuscular Volume 76.8 fL (80-95); Mean Platelet Volume 9.4 fL (8.0-11.0); Monocytes % 8.6; Neutrophils % 78.6; Platelet Count 354 x1000/uL (130-400); RBC 4.06 m/cumm (4.50-6.00); RBC Distribution Width 22.1 % (11.8-14.1); White Blood Cell Count 12.77 k/cumm (4.4-10.8)
[2018-03-13 08:09] LABS: Absolute Eosinophil Count 0.57 k/cumm (0.0-0.7); Absolute Lymphocyte Count 0.89 k/cumm (1.2-3.4); Absolute Neutrophil Count 10.04 k/cumm (1.2-6.7)
--- NOTE | 2018-03-13 08:38 | OT.INNT ---
Date of service: 03/13/18 Time of Service: 08:38 Occupational Therapy Notes 03/13/18 OT went to see pt, pt was sleeping and reports he would like OT to come back later. OT will check in with pt later this morning. Suzanne Javier OTR/[facility]
[2018-03-13] MEDS: Heparin 5,000 UNITS/ML VIAL 5000 UNITS SC ×3 (09:35→23:01)
[2018-03-13] MEDS: Insulin Aspart 300 UNITS/3 ML PEN 15 UNITS SC ×2 (10:44→18:30)
[2018-03-13] MEDS: Metoprolol CR 25 MG TABCR PO (10:45)
[2018-03-13] MEDS: cloNIDine 0.1 MG TAB 0.3 MG PO ×3 (10:45→21:10)
[2018-03-13] MEDS: hydrALAZINE 10 MG TAB PO ×3 (10:45→21:06)
[2018-03-13] MEDS: Magnesium Chloride 64 MG TABCR PO ×2 (10:46→21:07)
[2018-03-13] MEDS: amLODIPine 5 MG TAB 10 MG PO (10:46)
[2018-03-13] MEDS: Cyanocobalamin 500 MCG TAB 1000 MCG PO (10:46)
[2018-03-13] MEDS: hydrOXYzine HCL 25 MG TAB PO ×2 (10:47→21:07)
[2018-03-13] MEDS: Omeprazole 20 MG CAPCR PO (10:47)
[2018-03-13] MEDS: Aspirin E.C. 81 MG TABEC PO ×2 (10:47→21:07)
[2018-03-13] MEDS: Multivitamin TAB 1 TAB PO (10:47)
[2018-03-13] MEDS: Venlafaxine 37.5 MG CAPCR 75 MG PO (10:47)
[2018-03-13] MEDS: Terazosin 2 MG CAP 4 MG PO ×2 (10:48→21:07)
[2018-03-13] MEDS: Acetaminophen 325 MG TAB PO ×2 (10:48→21:06)
[2018-03-13] MEDS: Gabapentin 300 MG CAP PO ×3 (10:48→21:07)
[2018-03-13] MEDS: Water,Injection,Bacteriostatic 30 ML VIAL (10:49)
[2018-03-13] MEDS: Alteplase 2 MG VIAL IJ (10:49)
[2018-03-13] MEDS: Ferrous Sulfate 325 MG TAB PO ×2 (10:50→21:06)
[2018-03-13] MEDS: Lactobacillus Acidophilus CAP 1 CAP PO ×3 (10:51→21:06)
[2018-03-13] MEDS: Ascorbic Acid 500 MG TAB PO ×2 (10:51→21:07)
[2018-03-13] MEDS: Folic Acid 1 MG TAB PO (10:51)
[2018-03-13] MEDS: carBAMazepine 100 MG CHEW PO ×3 (10:51→21:10)
[2018-03-13] MEDS: Nystatin POWDER 60 GM JAR TP (10:52)
--- NOTE | 2018-03-13 11:03 | PT.INNT ---
Date of service: 03/13/18 Time of Service: 11:03 PT Notes 03/13/18 Patient found sleeping, unable to arouse patient. Patient not able to participate in PT at this time.
--- NOTE | 2018-03-13 11:09 | OT.INTREAT ---
Date of service: 03/13/18 Time of Service: 09:50 Occupational Therapy Notes Occupational Therapy Inpatient Treatment Note Date: 03/13/18 PRECAUTIONS: Contact and Droplet Precautions with regards to standard precautions NO SKILLED OT SERVICES PROVIDED AT TODAYS SESSION- HOLD ON OT SERVICES FOR TODAY SUBJECTIVE: Pt was lying in bed when OT arrived. He was hard to wake up from sleeping routine and kept eyes shut when performing functional activities. ASSESSMENT/PLAN: Pt has decreased functional activity tolerance, he is unable to open his eyes and does not want to get up for his breakfast. Nursing present in room washing pts hair and UE which pt is max (A) with today. He is unable to wash his face and hands today which he was able to perform previously. He required max (A) for all ADLS today. No skilled OT services provided. Suzanne Javier OTR/[facility]
--- NOTE | 2018-03-13 11:23 | PDOC.CMDIS ---
LACE Index Scoring Tool - Questions: Length of Stay (in days): 7 - 13 Acuity (Admit via E.D.?): Yes Comorbidities: Diabetes w/o Complication, Liver or Renal Disease Care Management Discharge Reason for Hospitalization: Hyperglycemia, encephalopathy, suspected sepsis, pneumonia
--- NOTE | 2018-03-13 11:31 | W.PM.DS.N ---
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 2 diabetes mellitus: Status: Acute (2) Chronic cholecystitis: Status: Acute (3) HCAP (healthcare-associated pneumonia): Status: Resolved (4) Acute on chronic kidney failure: Status: Resolved (5) Hyperkalemia: Status: Ruled-out (6) Adrenal insufficiency: Status: Chronic Discharge Plan Disposition Patient Disposition: [facility] III [facility] Condition: Improving Discharge Details Chief Complaint: Diabetes Clinical Impression: Acute hyperglycemia, Acute dehydration Reason For Visit: Hyperglycemia,encephalopathy,suspected sepsis Admit Date/Time: 03/01/18 13:40 Admit Provider: Priscila Canela Attending Provider: Priscila Canela Primary Care Provider: Anne Horowitz ED Provider: Billy Fraga Home Meds and New Rx's Prescriptions: No Action furosemide 40 mg Tablet 40 mg PO DAILY RF: 0 loperamide 2 mg Capsule 2 mg PO QID PRNRF: 0 cyanocobalamin (vitamin B-12) 1,000 mcg Tablet 1,000 mcg PO DAILY RF: 0 aspirin [Aspirin Low Dose] 81 mg Tablet,Delayed Release (Dr/Ec) 81 mg PO BID RF: 0 risperidone 3 mg Tablet 3 mg PO HS RF: 0 carbamazepine 100 mg Tablet,Chewable 100 mg PO TID RF: 0 omeprazole 20 mg Capsule,Delayed Release(Dr/Ec) 20 mg PO DAILY RF: 0 folic acid 1 mg Tablet 1 mg PO DAILY RF: 0 clonidine HCl [Catapres] 0.1 mg Tablet 0.3 mg PO TID Qty: 0 RF: 0 amlodipine 5 mg Tablet 10 mg PO DAILY Qty: 0 RF: 0 ferrous sulfate 325 mg (65 mg iron) Tablet 325 mg PO BID Qty: 0 RF: 0 melatonin 3 mg Tablet Extended Release 9 mg PO DAILY@0000 Qty: 0 RF: 0 Lantus Solostar U-100 Insulin 100 unit/mL (3 mL) insulin pen 60 unit subcut DAILY RF: 0 furosemide [Lasix] 40 mg Tablet 40 mg PO DAILY RF: 0 trazodone 50 mg Tablet 50 mg PO HS RF: 0 levothyroxine 75 mcg Tablet 0.5 tab PO DAILY RF: 0 ascorbic acid (vitamin C) [Vitamin C] 250 mg Tablet 1 tab PO BID RF: 0 ergocalciferol (vitamin D2) [Vitamin D2] 50,000 unit Capsule See Rx Instructions .ROUTE .COMPLEX RF: 0 Centrum Complete 18-400 mg-mcg Tablet 1 tab PO DAILY RF: 0 Novolog Flexpen U-100 Insulin 100 unit/mL insulin pen subcut 0730,1130,1630 RF: 0 vancomycin in 0.9 % sodium chl 500 mg/100 mL piggyback 1,000 mg IV Q48H RF: 0 venlafaxine 75 mg Capsule,Extended Release 24hr 75 mg PO DAILY RF: 0 metoprolol succinate 25 mg Tablet Extended Release 24 Hr 25 mg PO DAILY RF: 0 acetaminophen [Tylenol] 325 mg Tablet 325 - 650 mg PO Q4H PRN PRNQty: 0 RF: 0 gabapentin 300 mg Capsule 300 mg PO TID Qty: 0 RF: 0 hydralazine 10 mg Tablet 10 mg PO TID Qty: 0 RF: 0 terazosin 2 mg Capsule 4 mg PO BID Qty: 0 RF: 0 hydroxyzine HCl 25 mg Tablet 25 mg PO Q6H PRN PRN (Reason: Itching) Qty: 0 RF: 0 magnesium chloride [Mag 64] 64 mg Tablet,Delayed Release (Dr/Ec) 64 mg PO BID Qty: 0 RF: 0 prednisone 10 mg tablet 10 mg PO DAILY Qty: 28 RF: 0 Discharge Instructions Stand Alone Forms: Nursing Discharge Form Referrals: Harris Ashford DPM [[facility] STAFF PHYSICIAN] - (The office is closed until friday. We have left a message for Dr. Ashford to call and schedule a follow up appointment.) DS: Data Vitals/I&O Vitals and I&O: Vital Signs Temperature 35.9 C L 03/13/18 07:30 Temperature Source Tympanic 03/13/18 07:30 Pulse 63 03/13/18 07:30 Pulse Rhythm Regular 03/12/18 16:01 Pulse 66 03/01/18 10:10 Respiratory Rate 20 03/13/18 07:30 Respiratory Effort Non-Labored 03/12/18 16:01 Respiratory Depth Normal 03/12/18 16:01 Respiratory Pattern Normal 03/12/18 16:01 Blood Pressure 148/71 H 03/13/18 07:30 Blood Pressure Mean 86 03/01/18 10:01 Blood Pressure Position Supine 03/01/18 09:11 Pulse Oximetry 92 L 03/13/18 07:30 Oxygen Delivery Method Room Air 03/13/18 07:30 Oxygen Flow Rate 0 03/13/18 07:30 Pain Level 7 03/13/18 10:48 Comment 03/05/18 07:35 Intake & Output 03/12/18 03/12/18 03/13/18 11:59 23:59 11:59 Intake Total 600 / 1450 850 / 1450 720 / 720 Output Total 2600 / 3455 855 / 3455 750 / 750 Balance -1999 - - Weight 105.7 kg 105.4 kg Intake: IV 270 / 270 Oral 480 / 1060 580 / 1060 720 / 720 Injectate 120 / 120 Right Upper Abdomen 120 / 120 Output: Drainage 250 / 405 155 / 405 Right Upper Abdomen 250 / 405 155 / 405 Urine 800 / 1275 475 / 1275 350 / 350 Stool 1550 / 1775 225 / 1775 400 / 400 Other: Urine Color Yellow Yellow Yellow Urine Appearance Clear Clear Clear Urine Odor None Normal Comment Urinal x2 between 12-1900. Pt did need bedding change x1 d/t not being able to reach urinal. Voiding Methods Urinal Urinal Incontinent Labs on day of discharge: Labs from last 24 hours 03/13/18 03/13/18 03/13/18 07:25 07:25 07:25 WBC 12.77 H RBC 4.06 L Hgb 9.5 L Hct 31.2 L MCV 76.8 L MCH 23.4 L MCHC 30.4 L RDW 22.1 H Plt Count 354 MPV 9.4 Immature Gran % 1.1 Neutrophils % 78.6 Lymphocytes % 7.0 Monocytes % 8.6 Eosinophils % 4.5 Basophils % 0.2 Absolute Neutrophils 10.04 H Absolute Lymphocytes 0.89 L Absolute Monocytes 1.10 H Absolute Eosinophils 0.57 Absolute Basophils 0.03 Sodium 140 Potassium 4.5 Chloride 113 H Carbon Dioxide 16.5 L Anion Gap 10.5 BUN 35 H Creatinine 2.26 H Estimated GFR/1.73 m2 29.95 Glucose 121 H Calcium 8.6 Magnesium 2.0 PFSH Medical History MRSA bacteremia (Resolved) Diabetic foot ulcer (Chronic) Poorly controlled type 2 diabetes mellitus with circulatory disorder (Chronic) CKD (chronic kidney disease) (Chronic) Cardiopulmonary arrest with successful resuscitation (Resolved) Heme positive stool (Chronic) Pedal edema (Chronic) Chronic insomnia (Chronic) Anxiety (Chronic) Diabetes mellitus type 2, controlled (Chronic) Hypertension (Chronic) Chronic pain (Chronic) Hypothyroidism (Chronic) Obesity (Chronic) Back pain (Chronic 06/21/13) Inability to get out of bed (Chronic 06/21/13) Poor self care (Chronic 06/21/13) Chronic bipolar disorder (Chronic) CAD (coronary artery disease) (Chronic) Dyslipidemia (Chronic) Hypoandrogenism (Chronic) Rheumatoid arthritis (Chronic) Crohns disease (Chronic) Osteoarthritis of both knees (Chronic) Cholelithiasis (Chronic) Impaired mobility and ADLs (Chronic) Acute congestive heart failure (Chronic) Hemorrhagic cystitis (Chronic) Anemia (Chronic) Bipolar 1 disorder (Chronic) CAD (coronary artery disease) (Chronic) Chronic anxiety (Chronic) Chronic pain (Chronic) 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) Dyslipidemia (Chronic) Hypertension (Chronic) Surgical History Arthroplasty of knee (Resolved 03/18/12) Fracture, Open Treatment (Resolved) Social History housing: long term Smoking/Tobacco Use Status: Never
[2018-03-13 11:45] VITALS: BP 118/62; PULSE 58; RESP 20; TEMP 35.8; O2SAT 92
--- NOTE | 2018-03-13 12:41 | W.PM.PROGNOT ---
Date of Service Date of service: 03/13/18 Time of Service: 12:42 Assessment and Plan (1) 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 2 diabetes mellitus: Current visit: Yes Status: Acute Non-healing diabetic foot ulcer, with Xray showing evidence of potential osteo of the right 5th metatarsal. Underwent 11 days of Pip-Tazo and Vancomycin - now s/p debridement on 03/06 with resection of the 5th MPJ - culture of the tissue via Podiatry had been negative, but now growing MRSA and Proteus Mirabilis (along with staph epi). Discussed with ID in detail - given intervention would await surgical pathology for clear margins. If infection is limited, a 2 week course of therapy from the date of resection will suffice. If infection extends beyond the margins of the bone then Mr. Corley will require 6 weeks of antibiotics thereapy. Also with recommendations for continuation of Vancomycin and Ertapenem for broader coverage in case of other / polymicrobial infection that is not present on current culture. (2) Chronic cholecystitis: Current visit: Yes Status: Acute Cholecystostomy drain was not changed at [facility] on 03/05/17 - per discussion with IR, there would not have been a benefit to it from the stand point of decreasing infection risk, as long as the drain is functioning well and continues to drain. (3) HCAP (healthcare-associated pneumonia): Current visit: No Status: Resolved S/p 5 days of therapy with Vancomycin and Pip-Tazo. Unsure if this was a true diagnosis as repeat read of CXR and repeat imaging failed to show evidence of an infiltrate. However, Sputum culture with MRSA despite the fact that patient had been on lengthy treatment with Vancomycin for MRSA bacteremia in early January. (4) Acute on chronic kidney failure: Current visit: No Status: Resolved Resolved. Patient no longer on ARYA-I. Has lengthy history of significant hyperkalemia, and elevated K+ which he also experienced earlier this hospitalization, requiring additional dose of IV Diuretic and Kayexalate. Continue renal low potassium diet, renally dose medications, and monitor renal function. (5) Hyperkalemia: Current visit: No Status: Ruled-out Resolved. (6) Adrenal insufficiency: Current visit: No Status: Chronic Weaned steroids back to baseline dose. However, patient is reportedly experiencing a great deal of fatigue. May benefit from an extended and slower steroid taper back to baseline. (7) DVT prophylaxis: Current visit: No Status: Acute SC Heparin (8) Advance directive on file: Current visit: Yes Status: Acute Full Code Subjective Interval history since last seen: 57 year old resident of the [facility], with a recent history of MRSA bacteremia on IV vancomycin, admitted from [facility] Emergency Department with a diagnosis of Health Care Aquired Pneumonia. Mr. Corely has been hospitalized here at [facility] with sepsis on numerous prior occasions. He has a history of Group C strep bacteremia and E. Fecalis UTI in the past, and following his discharge returned to the hospital septic and suffered a cardiopulmonary arrest necessitating a transfer to [facility]. He was treated for Choleycystitis, and as he is not a surgical candidate, he was treated conservatively with a pigtail catheter and antibiotics. He is chronically a resident at the [facility] [place]. His other medical history includes DM, Adrenal insufficiency secondary to chronic steroid use, RA, Crohn's disease s/p Colectomy, OA, CKD with prior JESUS and resultant hyperkalemia, HTN, CAD, hypothyroidism, Obesity, and chronic pain. He's had recurrent UTIs, and also has a history of a non-healing diabetic foot ulcer. The patient was send to the ED due to worsening lethargy and hyperglycemia as noted in his [facility]. While his initial CXR showed evidence of potential pneumonia vs. edema, subsequent read and repeat imaging showed no evidence of definitive acute process. His sputum did grow MRSA - of note, he has had a recent MRSA bacteremia that he had remained on Vancomycin for - he was unable to go through a KELLEE, but due to a persistent murmur was under long-term antibiotic therapy due to have ended on 03/10. Mr. Corley was initially maintained on Vancomycin and Pip-Tazo, underwent a debridement of his wound via Podiatry, with cultures now growing MRSA and a GNR, speciated to Proteus Mirabilis. He is also growing Staph Epidermidis on surgical culture. The patient had also developed hyperkalemia recently despite a stable creatinine, necessitating treatment with additional lasix and Kayexalate. His potassium is normalized again this morning. No other events reported. He remains afebrile. Exam Narrative Exam Narrative: Exam Narrative: General: Patient appears comfortable sitting up out of bed inchair, asleep but easily arousable, obese, AAOX3, NAD Neck: Supple CV: Regular, nontachycardic, S1S2 Pulmonary: Clear to auscultation bilaterally, no crackles, wheezing, or rhonchi Abdomen: + Bowel Sounds, soft, nontender, nondistended, obese in contour. Vascular: B/l lower extremity edema Musculoskeletal: Right foot with bandage in place - appears c/d/i Psych: Normal mood and affect. Objective Objective Clinical Data: Abnormal lab results 03/13/18 03/13/18 Range/Units 07:25 07:25 WBC 12.77 H (4.4-10.8) k/cumm RBC 4.06 L (4.50-6.00) m/cumm Hgb 9.5 L (13.5-17.5) g/dL Hct 31.2 L (40.0-50.0) % MCV 76.8 L (80-95) fL MCH 23.4 L (27.0-33.0) pg MCHC 30.4 L (32.0-36.0) g/dL RDW 22.1 H (11.8-14.1) % Absolute Neutrophils 10.04 H (1.2-6.7) k/cumm Absolute Lymphocytes 0.89 L (1.2-3.4) k/cumm Absolute Monocytes 1.10 H (0.11-0.7) k/cumm Chloride 113 H (98-107) mmol/L Carbon Dioxide 16.5 L (21.0-32.0) mmol/L BUN 35 H (7-18) mg/dL Creatinine 2.26 H (0.70-1.30) mg/dL Glucose 121 H (70-100) mg/dL Vital Signs Temperature 35.9 C L 03/13/18 07:30 Temperature Source Tympanic 03/13/18 07:30 Pulse 63 03/13/18 07:30 Pulse Rhythm Regular 03/12/18 16:01 Pulse 66 03/01/18 10:10 Respiratory Rate 20 03/13/18 07:30 Respiratory Effort Non-Labored 03/12/18 16:01 Respiratory Depth Normal 03/12/18 16:01 Respiratory Pattern Normal 03/12/18 16:01 Blood Pressure 148/71 H 03/13/18 07:30 Blood Pressure Mean 86 03/01/18 10:01 Blood Pressure Position Supine 03/01/18 09:11 Pulse Oximetry 92 L 03/13/18 07:30 Oxygen Delivery Method Room Air 03/13/18 07:30 Oxygen Flow Rate 0 03/13/18 07:30 Pain Level 7 03/13/18 10:48 Comment 03/05/18 07:35 Intake & Output 03/12/18 03/13/18 03/13/18 23:59 11:59 23:59 Intake Total 850 / 1450 720 / 720 Output Total 855 / 3455 750 / 750 Balance - - Weight 105.4 kg Intake: IV 270 / 270 Oral 580 / 1060 720 / 720 Output: Drainage 155 / 405 Right Upper Abdomen 155 / 405 Urine 475 / 1275 350 / 350 Stool 225 / 1775 400 / 400 Other: Urine Color Yellow Yellow Urine Appearance Clear Clear Urine Odor Normal Comment Urinal x2 between 12-1900. Pt did need bedding change x1 d/t not being able to reach urinal. Voiding Methods Urinal Incontinent Laboratory Results WBC 12.77 k/cumm (4.4-10.8) H 03/13/18 07:25 RBC 4.06 m/cumm (4.50-6.00) L 03/13/18 07:25 Hgb 9.5 g/dL (13.5-17.5) L 03/13/18 07:25 Hct 31.2 % (40.0-50.0) L 03/13/18 07:25 MCV 76.8 fL (80-95) L 03/13/18 07:25 MCH 23.4 pg (27.0-33.0) L 03/13/18 07:25 MCHC 30.4 g/dL (32.0-36.0) L 03/13/18 07:25 RDW 22.1 % (11.8-14.1) H 03/13/18 07:25 Plt Count 354 x1000/uL (130-400) 03/13/18 07:25 MPV 9.4 fL (8.0-11.0) 03/13/18 07:25 Abs Immat Gran (auto) Cancelled 03/05/18 05:35 Immature Gran % 1.1 03/13/18 07:25 Neutrophils % 78.6 03/13/18 07:25 Lymphocytes % 7.0 03/13/18 07:25 Monocytes % 8.6 03/13/18 07:25 Eosinophils % 4.5 03/13/18 07:25 Basophils % 0.2 03/13/18 07:25 Absolute Neutrophils 10.04 k/cumm (1.2-6.7) H 03/13/18 07:25 Band Neutrophils 2.0 % 03/08/18 06:15 Absolute Lymphocytes 0.89 k/cumm (1.2-3.4) L 03/13/18 07:25 Absolute Monocytes 1.10 k/cumm (0.11-0.7) H 03/13/18 07:25 Absolute Eosinophils 0.57 k/cumm (0.0-0.7) 03/13/18 07:25 Absolute Basophils 0.03 k/cumm (0.0-0.2) 03/13/18 07:25 Metamyelocytes 1.0 % 03/10/18 06:15 Myelocytes 2.0 % 03/10/18 06:15 Promyelocytes Cancelled 03/05/18 05:35 Nucleated RBCs Cancelled 03/05/18 05:35 Differential Comment Manual differential 03/10/18 06:15 Atypical Lymphocytes Cancelled 03/05/18 05:35 Other Cell Type Cancelled 03/05/18 05:35 RBC Morphology See below 03/10/18 06:15 Polychromasia Present 03/02/18 07:00 Hypochromasia 3+ 03/10/18 06:15 Poikilocytosis 3+ 03/10/18 06:15 Basophilic Stippling Cancelled 03/05/18 05:35 Anisocytosis 3+ 03/10/18 06:15 Microcytosis 3+ 03/10/18 06:15 Macrocytosis Cancelled 03/05/18 05:35 Spherocytes Cancelled 03/05/18 05:35 Target Cells Cancelled 03/05/18 05:35 Tear Drop Cells 2+ 03/01/18 09:38 Ovalocytes 2+ 03/02/18 07:00 Stomatocytes Cancelled 03/05/18 05:35 Glover-Ackerly Bodies Cancelled 03/05/18 05:35 Sathya Cells Cancelled 03/05/18 05:35 Acanthocytes (Spur) Cancelled 03/05/18 05:35 Schistocytes Cancelled 03/05/18 05:35 PT 9.6 sec (9.3-11.0) 03/05/18 13:12 INR 1.0 (0.9-1.1) 03/05/18 13:12 Sodium 140 mmol/L (136-145) 03/13/18 07:25 Potassium 4.5 mmol/L (3.5-5.1) 03/13/18 07:25 Chloride 113 mmol/L (98-107) H 03/13/18 07:25 Carbon Dioxide 16.5 mmol/L (21.0-32.0) L 03/13/18 07:25 Anion Gap 10.5 mmol/L (3-11) 03/13/18 07:25 BUN 35 mg/dL (7-18) H 03/13/18 07:25 Creatinine 2.26 mg/dL (0.70-1.30) H 03/13/18 07:25 Estimated GFR/1.73 m2 29.95 (mL/min/1.73m2) 03/13/18 07:25 Glucose 121 mg/dL (70-100) H 03/13/18 07:25 Lactate 1.1 mmol/L (0.6-1.4) 03/02/18 07:00 Calcium 8.6 mg/dL (8.5-10.1) 03/13/18 07:25 Magnesium 2.0 mg/dL (1.8-2.4) 03/13/18 07:25 Total Bilirubin 0.2 mg/dL (0.2-1.0) 03/01/18 09:38 Conjugated Bilirubin 0.08 mg/dL (0.00-0.20) 03/01/18 09:38 AST 3 U/L (15-37) L 03/01/18 09:38 ALT 13 U/L (12-78) 03/01/18 09:38 Alkaline Phosphatase 273 U/L (46-116) H 03/01/18 09:38 Creatine Kinase 15 U/L (39-308) L 03/08/18 21:20 Total Protein 7.1 g/dL (6.4-8.2) 03/01/18 09:38 Albumin 2.3 g/dL (3.4-5.0) L 03/01/18 09:38 TSH 0.61 uIU/mL (0.358-3.74) 03/02/18 07:00 Urine Color Yellow (Yellow) 03/04/18 14:20 Urine Clarity Clear 03/04/18 14:20 Urine pH 6.0 (5-8) 03/04/18 14:20 Ur Specific [place] 1.020 (1.005-1.025) 03/04/18 14:20 Urine Protein 30 mg/dL (Negative) H 03/04/18 14:20 Urine Ketones Negative mg/dL (Negative) 03/04/18 14:20 Urine Blood Trace-intact (Negative) H 03/04/18 14:20 Urine Nitrite Negative (Negative) 03/04/18 14:20 Urine Bilirubin Negative (Negative) 03/04/18 14:20 Urine Urobilinogen 0.2 EU/dL (Up TO 0.2) 03/04/18 14:20 Ur Leukocyte Esterase Small (Negative) H 03/04/18 14:20 Urine RBC 3-5 (0-2) H 03/04/18 14:20 Urine WBC >50 HPF (0-5) 03/04/18 14:20 Ur Epithelial Cells Negative HPF (Negative) 03/04/18 14:20 Urine Crystals Few amorphous HPF (Negative) 03/04/18 14:20 Urine Bacteria Moderate HPF (Negative) 03/04/18 14:20 Urine Casts 3-5 coarse granular LPF (Negative) 03/04/18 14:20 Urine Mucus Negative (Negative) 03/04/18 14:20 Urine Other Moderate yeast (Negative) 03/04/18 14:20 Ur Culture Indicated? C&s done as ordered 03/04/18 14:20 Urine Glucose Negative mg/dL (Negative) 03/04/18 14:20 Vancomycin Trough 26.1 ug/mL (10.0-20.0) H* 03/09/18 15:15
--- NOTE | 2018-03-13 12:46 | PGE_ITS ---
Date of Service Date of service: 03/13/18 Time of Service: 12:42 Assessment and Plan (1) 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 2 diabetes mellitus: Current visit: Yes Status: Acute Non-healing diabetic foot ulcer, with Xray showing evidence of potential osteo of the right 5th metatarsal. Underwent 11 days of Pip-Tazo and Vancomycin - now s/p debridement on 03/06 with resection of the 5th MPJ - culture of the tissue via Podiatry had been negative, but now growing MRSA and Proteus Mirabilis (along with staph epi). Discussed with ID in detail - given intervention would await surgical pathology for clear margins. If infection is limited, a 2 week course of therapy from the date of resection will suffice. If infection extends beyond the margins of the bone then Mr. Corley will require 6 weeks of antibiotics thereapy. Also with recommendations for continuation of Vancomycin and Ertapenem for broader coverage in case of other / polymicrobial infection that is not present on current culture. (2) Chronic cholecystitis: Current visit: Yes Status: Acute Cholecystostomy drain was not changed at [facility] on 03/05/17 - per discussion with IR, there would not have been a benefit to it from the stand point of decreasing infection risk, as long as the drain is functioning well and continues to drain. (3) HCAP (healthcare-associated pneumonia): Current visit: No Status: Resolved S/p 5 days of therapy with Vancomycin and Pip-Tazo. Unsure if this was a true diagnosis as repeat read of CXR and repeat imaging failed to show evidence of an infiltrate. However, Sputum culture with MRSA despite the fact that patient had been on lengthy treatment with Vancomycin for MRSA bacteremia in early January. (4) Acute on chronic kidney failure: Current visit: No Status: Resolved Resolved. Patient no longer on ARYA-I. Has lengthy history of significant hyperkalemia, and elevated K+ which he also experienced earlier this hospitalization, requiring additional dose of IV Diuretic and Kayexalate. Continue renal low potassium diet, renally dose medications, and monitor renal function. (5) Hyperkalemia: Current visit: No Status: Ruled-out Resolved. (6) Adrenal insufficiency: Current visit: No Status: Chronic Weaned steroids back to baseline dose. However, patient is reportedly experiencing a great deal of fatigue. May benefit from an extended and slower steroid taper back to baseline. (7) DVT prophylaxis: Current visit: No Status: Acute SC Heparin (8) Advance directive on file: Current visit: Yes Status: Acute Full Code Subjective Interval history since last seen: 57 year old resident of the [facility], with a recent history of MRSA bacteremia on IV vancomycin, admitted from [facility] Emergency Department with a diagnosis of Health Care Aquired Pneumonia. Mr. Corley has been hospitalized here at [facility] with sepsis on numerous prior occasions. He has a history of Group C strep bacteremia and E. Fecalis UTI in the past, and following his discharge returned to the hospital septic and suffered a cardiopulmonary arrest necessitating a transfer to [facility]. He was treated for Choleycystitis, and as he is not a surgical candidate, he was treated conservatively with a pigtail catheter and antibiotics. He is chronically a resident at the [facility]. His other medical history includes DM, Adrenal insufficiency secondary to chronic steroid use, RA, Crohn's disease s/p Colectomy, OA, CKD with prior JESUS and resultant hyperkalemia, HTN, CAD, hypothyroidism, Obesity, and chronic pain. He's had recurrent UTIs, and also has a history of a non-healing diabetic foot ulcer. The patient was send to the ED due to worsening lethargy and hyperglycemia as noted in his [facility]. While his initial CXR showed evidence of potential pneumonia vs. edema, subsequent read and repeat imaging showed no evidence of definitive acute process. His sputum did grow MRSA - of note, he has had a recent MRSA bacteremia that he had remained on Vancomycin for - he was unable to go through a KELLEE, but due to a persistent murmur was under long-term antibiotic therapy due to have ended on 03/10. Mr. Corley was initially maintained on Vancomycin and Pip-Tazo, underwent a debridement of his wound via Podiatry, with cultures now growing MRSA and a GNR, speciated to Proteus Mirabilis. He is also growing Staph Epidermidis on surgical culture. The patient had also developed hyperkalemia recently despite a stable creatinine, necessitating treatment with additional lasix and Kayexalate. His potassium is normalized again this morning. No other events reported. He remains afebrile. Exam Narrative Exam Narrative: Exam Narrative: General: Patient appears comfortable sitting up out of bed inchair, asleep but easily arousable, obese, AAOX3, NAD Neck: Supple CV: Regular, nontachycardic, S1S2 Pulmonary: Clear to auscultation bilaterally, no crackles, wheezing, or rhonchi Abdomen: + Bowel Sounds, soft, nontender, nondistended, obese in contour. Vascular: B/l lower extremity edema Musculoskeletal: Right foot with bandage in place - appears c/d/i Psych: Normal mood and affect. Objective Objective Clinical Data: Abnormal lab results 03/13/18 03/13/18 Range/Units 07:25 07:25 WBC 12.77 H (4.4-10.8) k/cumm RBC 4.06 L (4.50-6.00) m/cumm Hgb 9.5 L (13.5-17.5) g/dL Hct 31.2 L (40.0-50.0) % MCV 76.8 L (80-95) fL MCH 23.4 L (27.0-33.0) pg MCHC 30.4 L (32.0-36.0) g/dL RDW 22.1 H (11.8-14.1) % Absolute Neutrophils 10.04 H (1.2-6.7) k/cumm Absolute Lymphocytes 0.89 L (1.2-3.4) k/cumm Absolute Monocytes 1.10 H (0.11-0.7) k/cumm Chloride 113 H (98-107) mmol/L Carbon Dioxide 16.5 L (21.0-32.0) mmol/L BUN 35 H (7-18) mg/dL Creatinine 2.26 H (0.70-1.30) mg/dL Glucose 121 H (70-100) mg/dL Vital Signs Temperature 35.9 C L 03/13/18 07:30 Temperature Source Tympanic 03/13/18 07:30 Pulse 63 03/13/18 07:30 Pulse Rhythm Regular 03/12/18 16:01 Pulse 66 03/01/18 10:10 Respiratory Rate 20 03/13/18 07:30 Respiratory Effort Non-Labored 03/12/18 16:01 Respiratory Depth Normal 03/12/18 16:01 Respiratory Pattern Normal 03/12/18 16:01 Blood Pressure 148/71 H 03/13/18 07:30 Blood Pressure Mean 86 03/01/18 10:01 Blood Pressure Position Supine 03/01/18 09:11 Pulse Oximetry 92 L 03/13/18 07:30 Oxygen Delivery Method Room Air 03/13/18 07:30 Oxygen Flow Rate 0 03/13/18 07:30 Pain Level 7 03/13/18 10:48 Comment 03/05/18 07:35 Intake & Output 03/12/18 03/13/18 03/13/18 23:59 11:59 23:59 Intake Total 850 / 1450 720 / 720 Output Total 855 / 3455 750 / 750 Balance - - Weight 105.4 kg Intake: IV 270 / 270 Oral 580 / 1060 720 / 720 Output: Drainage 155 / 405 Right Upper Abdomen 155 / 405 Urine 475 / 1275 350 / 350 Stool 225 / 1775 400 / 400 Other: Urine Color Yellow Yellow Urine Appearance Clear Clear Urine Odor Normal Comment Urinal x2 between 12-1900. Pt did need bedding change x1 d/t not being able to reach urinal. Voiding Methods Urinal Incontinent Laboratory Results WBC 12.77 k/cumm (4.4-10.8) H 03/13/18 07:25 RBC 4.06 m/cumm (4.50-6.00) L 03/13/18 07:25 Hgb 9.5 g/dL (13.5-17.5) L 03/13/18 07:25 Hct 31.2 % (40.0-50.0) L 03/13/18 07:25 MCV 76.8 fL (80-95) L 03/13/18 07:25 MCH 23.4 pg (27.0-33.0) L 03/13/18 07:25 MCHC 30.4 g/dL (32.0-36.0) L 03/13/18 07:25 RDW 22.1 % (11.8-14.1) H 03/13/18 07:25 Plt Count 354 x1000/uL (130-400) 03/13/18 07:25 MPV 9.4 fL (8.0-11.0) 03/13/18 07:25 Abs Immat Gran (auto) Cancelled 03/05/18 05:35 Immature Gran % 1.1 03/13/18 07:25 Neutrophils % 78.6 03/13/18 07:25 Lymphocytes % 7.0 03/13/18 07:25 Monocytes % 8.6 03/13/18 07:25 Eosinophils % 4.5 03/13/18 07:25 Basophils % 0.2 03/13/18 07:25 Absolute Neutrophils 10.04 k/cumm (1.2-6.7) H 03/13/18 07:25 Band Neutrophils 2.0 % 03/08/18 06:15 Absolute Lymphocytes 0.89 k/cumm (1.2-3.4) L 03/13/18 07:25 Absolute Monocytes 1.10 k/cumm (0.11-0.7) H 03/13/18 07:25 Absolute Eosinophils 0.57 k/cumm (0.0-0.7) 03/13/18 07:25 Absolute Basophils 0.03 k/cumm (0.0-0.2) 03/13/18 07:25 Metamyelocytes 1.0 % 03/10/18 06:15 Myelocytes 2.0 % 03/10/18 06:15 Promyelocytes Cancelled 03/05/18 05:35 Nucleated RBCs Cancelled 03/05/18 05:35 Differential Comment Manual differential 03/10/18 06:15 Atypical Lymphocytes Cancelled 03/05/18 05:35 Other Cell Type Cancelled 03/05/18 05:35 RBC Morphology See below 03/10/18 06:15 Polychromasia Present 03/02/18 07:00 Hypochromasia 3+ 03/10/18 06:15 Poikilocytosis 3+ 03/10/18 06:15 Basophilic Stippling Cancelled 03/05/18 05:35 Anisocytosis 3+ 03/10/18 06:15 Microcytosis 3+ 03/10/18 06:15 Macrocytosis Cancelled 03/05/18 05:35 Spherocytes Cancelled 03/05/18 05:35 Target Cells Cancelled 03/05/18 05:35 Tear Drop Cells 2+ 03/01/18 09:38 Ovalocytes 2+ 03/02/18 07:00 Stomatocytes Cancelled 03/05/18 05:35 Glover-Hermann Bodies Cancelled 03/05/18 05:35 Sathya Cells Cancelled 03/05/18 05:35 Acanthocytes (Spur) Cancelled 03/05/18 05:35 Schistocytes Cancelled 03/05/18 05:35 PT 9.6 sec (9.3-11.0) 03/05/18 13:12 INR 1.0 (0.9-1.1) 03/05/18 13:12 Sodium 140 mmol/L (136-145) 03/13/18 07:25 Potassium 4.5 mmol/L (3.5-5.1) 03/13/18 07:25 Chloride 113 mmol/L (98-107) H 03/13/18 07:25 Carbon Dioxide 16.5 mmol/L (21.0-32.0) L 03/13/18 07:25 Anion Gap 10.5 mmol/L (3-11) 03/13/18 07:25 BUN 35 mg/dL (7-18) H 03/13/18 07:25 Creatinine 2.26 mg/dL (0.70-1.30) H 03/13/18 07:25 Estimated GFR/1.73 m2 29.95 (mL/min/1.73m2) 03/13/18 07:25 Glucose 121 mg/dL (70-100) H 03/13/18 07:25 Lactate 1.1 mmol/L (0.6-1.4) 03/02/18 07:00 Calcium 8.6 mg/dL (8.5-10.1) 03/13/18 07:25 Magnesium 2.0 mg/dL (1.8-2.4) 03/13/18 07:25 Total Bilirubin 0.2 mg/dL (0.2-1.0) 03/01/18 09:38 Conjugated Bilirubin 0.08 mg/dL (0.00-0.20) 03/01/18 09:38 AST 3 U/L (15-37) L 03/01/18 09:38 ALT 13 U/L (12-78) 03/01/18 09:38 Alkaline Phosphatase 273 U/L (46-116) H 03/01/18 09:38 Creatine Kinase 15 U/L (39-308) L 03/08/18 21:20 Total Protein 7.1 g/dL (6.4-8.2) 03/01/18 09:38 Albumin 2.3 g/dL (3.4-5.0) L 03/01/18 09:38 TSH 0.61 uIU/mL (0.358-3.74) 03/02/18 07:00 Urine Color Yellow (Yellow) 03/04/18 14:20 Urine Clarity Clear 03/04/18 14:20 Urine pH 6.0 (5-8) 03/04/18 14:20 Ur Specific [place] 1.020 (1.005-1.025) 03/04/18 14:20 Urine Protein 30 mg/dL (Negative) H 03/04/18 14:20 Urine Ketones Negative mg/dL (Negative) 03/04/18 14:20 Urine Blood Trace-intact (Negative) H 03/04/18 14:20 Urine Nitrite Negative (Negative) 03/04/18 14:20 Urine Bilirubin Negative (Negative) 03/04/18 14:20 Urine Urobilinogen 0.2 EU/dL (Up TO 0.2) 03/04/18 14:20 Ur Leukocyte Esterase Small (Negative) H 03/04/18 14:20 Urine RBC 3-5 (0-2) H 03/04/18 14:20 Urine WBC >50 HPF (0-5) 03/04/18 14:20 Ur Epithelial Cells Negative HPF (Negative) 03/04/18 14:20 Urine Crystals Few amorphous HPF (Negative) 03/04/18 14:20 Urine Bacteria Moderate HPF (Negative) 03/04/18 14:20 Urine Casts 3-5 coarse granular LPF (Negative) 03/04/18 14:20 Urine Mucus Negative (Negative) 03/04/18 14:20 Urine Other Moderate yeast (Negative) 03/04/18 14:20 Ur Culture Indicated? C&s done as ordered 03/04/18 14:20 Urine Glucose Negative mg/dL (Negative) 03/04/18 14:20 Vancomycin Trough 26.1 ug/mL (10.0-20.0) H* 03/09/18 15:15
[2018-03-13] MEDS: Normal Saline 500 ML 200 ML IV (13:07)
--- NOTE | 2018-03-13 13:34 | PDOC.CMPRO ---
Care Management Progress Note S/O: Brendan was prepared for discharge to the [facility] for ongoing IV ABX, wound care, and ongoing PT/OT. Per MD, Brendan requires increased steroids with a slower taper due to presentation. The [facility] reported needing to change around rooms as Brendan's current roommate has open wounds and would be exposed to Brendan's MRSA-which was the case prior to Brendan's admission as well. cancelled discharge-notifying MD, EMS and MED/SURG. The [facility] reports possible ability to admit on 03/16/18. A: 57 year old male admitted to [facility] 03/01/18 for Hyperglycemia, encephalopathy, suspected sepsis, pneumonia P: CM will continue to monitor clinical progress and support discharge planning considerations, he will return to the [facility]-his residence-when ready per MD. He will require ongoing IV ABX, wound management and follow up with Dr. Ashford. Brendan will transport via [facility] coordinated by this telegraphic typewriter installer.
--- NOTE | 2018-03-13 13:38 | CMPROGNOTE_ITS ---
Care Management Progress Note S/O: Brendan was prepared for discharge to the [facility] for ongoing IV ABX, wound care, and ongoing PT/OT. Per MD, Brendan requires increased steroids with a slower taper due to presentation. The [facility] reported needing to change around rooms as Brendan's current roommate has open wounds and would be exposed to Brendan's MRSA- which was the case prior to Brendan's admission as well. cancelled discharge- notifying MD, EMS and MED/SURG. The [facility] reports possible ability to admit on 03/16/18. A: 57 year old male admitted to [facility] 03/01/18 for Hyperglycemia, encephalopathy, suspected sepsis, pneumonia P: CM will continue to monitor clinical progress and support discharge planning considerations, he will return to the [facility]-his residence-when ready per MD. He will require ongoing IV ABX, wound management and follow up with Dr. Ashford. Brendan will transport via [facility] coordinated by this freelance writer.
[2018-03-13] MEDS: VANCOMYCIN 1,000 MG in Normal Saline 250 ML 166 MG IVPB (14:01)
[2018-03-13 15:47] VITALS: BP 147/75; PULSE 55; RESP 20; TEMP 36.4; O2SAT 95
[2018-03-13] MEDS: Insulin Aspart 300 UNITS/3 ML PEN SC (21:04)
[2018-03-13] MEDS: Insulin Glargine 300 UNITS/3 ML PEN 65 UNITS SC (21:05)
[2018-03-13] MEDS: traZODone 50 MG TAB PO (21:07)
[2018-03-13] MEDS: risperiDONE 1 MG TAB 3 MG PO (21:07)
[2018-03-13] MEDS: Melatonin 3 MG TAB 9 MG PO (23:02)
[2018-03-13 23:16] VITALS: BP 124/51; PULSE 65; RESP 20; TEMP 36.5; O2SAT 91
[2018-03-14] VITALS (12 sets, daily range): BP systolic 116–152; BP diastolic 53–68; PULSE 57–81; RESP 15–24; TEMP 36–37.4; O2SAT 90–98
[2018-03-14] MEDS: Nystatin POWDER 60 GM JAR TP ×2 (05:14→08:51)
[2018-03-14] MEDS: Levothyroxine 75 MCG TAB 37.5 MCG PO (05:14)
[2018-03-14 07:45] LABS: Abs Immature Grans 0.12 k/cumm (0.0-0.09); Absolute Basophil Count 0.04 k/cumm (0.0-0.2); Absolute Monocyte Count 1.03 k/cumm (0.11-0.7); Absolute Neutrophil Count 10.39 k/cumm (1.2-6.7); Basophils % 0.3; Eosinophils % 5.7; HCT 30.5 % (40.0-50.0); HGB 9.4 g/dL (13.5-17.5); Immature Grans % 0.9; Lymphocytes % 6.8; Mean Corp. HGB Concentration 30.8 g/dL (32.0-36.0); Mean Corpuscular Hemoglobin 23.6 pg (27.0-33.0); Mean Corpuscular Volume 76.6 fL (80-95); Mean Platelet Volume 9.9 fL (8.0-11.0); Monocytes % 7.8; Neutrophils % 78.5; Platelet Count 404 x1000/uL (130-400); RBC 3.98 m/cumm (4.50-6.00); RBC Distribution Width 22.2 % (11.8-14.1); White Blood Cell Count 13.24 k/cumm (4.4-10.8)
[2018-03-14 07:50] LABS: Absolute Eosinophil Count 0.75 k/cumm (0.0-0.7)
[2018-03-14 07:51] LABS: Anion Gap 11.2 mmol/L (3-11); BUN 34 mg/dL (7-18); CO2 16.8 mmol/L (21.0-32.0); CREATININE 2.41 mg/dL (0.70-1.30); Calcium 8.9 mg/dL (8.5-10.1); Chloride 111 mmol/L (98-107); Estimated GFR 27.81 (mL/min/1.73m2); Glucose 95 mg/dL (70-100); Potassium 4.7 mmol/L (3.5-5.1); Sodium 139 mmol/L (136-145)
[2018-03-14] MEDS: Terazosin 2 MG CAP 4 MG PO ×2 (08:48→22:02)
[2018-03-14] MEDS: hydrALAZINE 10 MG TAB PO (08:48)
[2018-03-14] MEDS: Ferrous Sulfate 325 MG TAB PO ×2 (08:48→22:02)
[2018-03-14] MEDS: Lactobacillus Acidophilus CAP 1 CAP PO ×2 (08:48→22:01)
[2018-03-14] MEDS: Magnesium Chloride 64 MG TABCR PO ×2 (08:48→22:02)
[2018-03-14] MEDS: Venlafaxine 37.5 MG CAPCR 75 MG PO (08:48)
[2018-03-14] MEDS: Multivitamin TAB 1 TAB PO (08:48)
[2018-03-14] MEDS: Metoprolol CR 25 MG TABCR PO (08:49)
[2018-03-14] MEDS: amLODIPine 5 MG TAB 10 MG PO (08:49)
[2018-03-14] MEDS: Aspirin E.C. 81 MG TABEC PO ×2 (08:49→22:01)
[2018-03-14] MEDS: Cyanocobalamin 500 MCG TAB 1000 MCG PO (08:49)
[2018-03-14] MEDS: Omeprazole 20 MG CAPCR PO (08:49)
[2018-03-14] MEDS: Gabapentin 300 MG CAP PO ×2 (08:49→22:02)
[2018-03-14] MEDS: carBAMazepine 100 MG CHEW PO ×2 (08:49→22:03)
[2018-03-14] MEDS: Folic Acid 1 MG TAB PO (08:49)
[2018-03-14] MEDS: cloNIDine 0.1 MG TAB 0.3 MG PO (08:49)
[2018-03-14] MEDS: Ascorbic Acid 500 MG TAB PO ×2 (08:49→22:01)
[2018-03-14] MEDS: Heparin 5,000 UNITS/ML VIAL 5000 UNITS SC ×3 (08:50→23:26)
[2018-03-14] MEDS: Hydrocortisone SOD SUC. 100 MG VIAL IVP (09:58)
[2018-03-14] MEDS: Normal Saline Flush 10 ML SYR IVP ×4 (09:59→19:03)
[2018-03-14 11:21] LABS: HCO3 14 mmol/L (22-28); pCO2 40 mmHg (34-47); pO2 64 mmHg (83-108); sO2 93 % (94-98); tCO2 14 mmol/L (22-29)
[2018-03-14 11:24] LABS: pH 7.16 (7.35-7.45)
[2018-03-14 11:25] LABS: BE -14.5 mmol/L (-3-3); FIO2 21 %; Site Left Radial
[2018-03-14 11:28] LABS: Lactate < 0.1 mmol/L (0.6-1.4)
[2018-03-14] MEDS: Dextrose 50%-Water 25 GM/50 ML SYR IVP (11:34)
--- NOTE | 2018-03-14 12:03 | DI.VRAD_ITS ---
EXAM: XR Chest, 1 View EXAM DATE/TIME: 03/14/2018 11:14 AM CLINICAL HISTORY: 57 years old, male; Signs and symptoms; Other: Shortness of breath TECHNIQUE: XR of the chest, 1 view. COMPARISON: CR XR PORTABLE CHEST AP 03/04/2018 8:32 AM FINDINGS: Lungs: Mild opacities in the right upper lobe and left base may represent atelectasis or pneumonia. Pleural space: There may be mild bilateral pleural effusions. Heart/Mediastinum: Cardiomegaly and mild vascular prominence may represent interstitial edema. Bones/joints: Degenerative changes in the right glenohumeral joint IMPRESSION: 1. Mild opacities in the right upper lobe and left base may represent atelectasis or pneumonia. 2. There may be mild bilateral pleural effusions. Dictated and Authenticated by: Mike Whitlock MD. Ordering:LACEY Francois MD
--- NOTE | 2018-03-14 12:05 | DI.RAD_ITS ---
SYMPTOM/DIAGNOSIS: SOB PORTABLE AP CHEST: Frontal view was obtained. The study is limited due to patient positioning and lack of cooperation. The heart appears mildly enlarged with mild prominent vasculature. There is blunting of the costophrenic angle suggesting small pleural effusions. There also appear to be increased lung markings in the right upper lobe and left lower lower. IMPRESSION: Findings which may represent pneumonia versus congestive heart failure. Please correlate clinically. Small bilateral pleural effusions.
--- NOTE | 2018-03-14 12:36 | PT.INNT ---
Date of service: 03/14/18 Time of Service: 12:36 PT Notes 03/14/18 Pt is on hold for PT today as per nursing request.
[2018-03-14 12:39] LABS: Bilirubin Negative (Negative); Blood Trace-lysed (Negative); Clarity Cloudy; Glucose Negative (Negative); Ketones Negative (Negative); Leukocyte Esterase Large (Negative); Nitrite Negative (Negative); Specific Gravity 1.015 (1.005-1.025); Urobilinogen 0.2 EU/dL (Up TO 0.2)
[2018-03-14 12:54] LABS: WBC >50 HPF (0-5)
[2018-03-14 12:55] LABS: C & S Indicated? C&S Done As Ordered
[2018-03-14 13:24] LABS: HCO3 (Venous) 14 mmol/L (22-28); O2 Sat (Venous) 98 % (70-80); TCO2 (Venous) 14 mmol/L (22-29); pCO2 (Venous) 41 mm/Hg (34-47); pO2 (Venous) 100 mm/Hg (28-44)
[2018-03-14 13:30] LABS: pH (Venous) 7.13 (7.32-7.43)
[2018-03-14 13:31] LABS: Lactate < 0.1 mmol/L (0.6-1.4)
[2018-03-14] MEDS: Sodium Bicarbonate 50 MEQ/50 ML SYR IVP (13:43)
[2018-03-14 13:54] LABS: Vancomycin, Trough 28.6 ug/mL (10.0-20.0)
--- NOTE | 2018-03-14 13:59 | PDOC.CMPRO ---
Care Management Progress Note S/O: Brendan was not able to participate in a discussion this morning. Lying in bed with eyes closed and only responding with single word answers. AAnticipate he will change level of care today. A: 57 yo male admitted for hyperglycemia, encephalopathy and suspected sepsis not improving anticipate change in level of care to ICU P: Return to the [facility] when medically cleared for discharge. Will need Wheel Chair van.
--- NOTE | 2018-03-14 14:14 | CMPROGNOTE_ITS ---
Care Management Progress Note S/O: Brendan was not able to participate in a discussion this morning. Lying in bed with eyes closed and only responding with single word answers. AAnticipate he will change level of care today. A: 57 yo male admitted for hyperglycemia, encephalopathy and suspected sepsis not improving anticipate change in level of care to ICU P: Return to the [facility] when medically cleared for discharge. Will need Wheel Chair van.
[2018-03-14 15:33] LABS: HCO3 (Venous) 16 mmol/L (22-28); O2 Sat (Venous) 94 % (70-80); TCO2 (Venous) 15 mmol/L (22-29); pCO2 (Venous) 42 mm/Hg (34-47); pO2 (Venous) 68 mm/Hg (28-44)
[2018-03-14 15:36] LABS: pH (Venous) 7.18 (7.32-7.43)
--- NOTE | 2018-03-14 16:21 | PGE_ITS ---
Date of Service Date of service: 03/14/18 Time of Service: 16:17 Assessment and Plan (1) Adrenal insufficiency: Current visit: No Status: Acute Acute on chronic, likely precipitated by missed doses of prednisone. Patient re-initiated on IV hydrocortisone and moved to the ICU. Septic workup is pending, but the clinical suspicion for that being the true trigger is low. Monitor mental status closely in ICU. (2) Toxic metabolic encephalopathy: Current visit: Yes Status: Acute Usual sure signs in Brendan that he is adrenally insufficient. Mental status is already improving. Monitor closely. (3) Metabolic acidosis: Current visit: Yes Status: Acute Multifactorial, due to 1. Adrenal insufficiency 2. Chronic kidney disease 3. Fluid overload There is no evidence of ketones on UA to suggest a component of DKA at this time. Continue Bicarb gtt until pH is reliably >7.2. Repeat VBG now. Start lasix. (4) 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 2 diabetes mellitus: Current visit: Yes Status: Acute Non-healing diabetic foot ulcer with osteomyelitis right 5th metatarsal. Underwent 11 days of Pip-Tazo and Vancomycin - now s/p debridement on 03/06 with resection of the 5th MPJ - now growing MRSA and Proteus Mirabilis (along with staph epi). Cotninue Vancomycin and Ertapenem, per ID at [facility], for broader coverage in case of other / polymicrobial infection that is not present on current culture. (5) Chronic cholecystitis: Current visit: Yes Status: Acute Cholecystostomy drain was not changed at [facility] on 03/05/17 - per discussion with IR, there would not have been a benefit to it from the stand point of decreasing infection risk, as long as the drain is functioning well and continues to drain. (6) HCAP (healthcare-associated pneumonia): Current visit: No Status: Resolved S/p 5 days of therapy with Vancomycin and Pip-Tazo. Sputum cx with MRSA. CXR today with mild opacities in RUL and L base, which could be either atelectasis or PNA. Continue vancomycin/ertapenem. (7) Acute on chronic kidney failure: Current visit: No Status: Resolved Cr improving - but appears fluid overloaded. Start lasix IV. Monitor I/O's, daily weights. Has a ruiz. (8) Hyperkalemia: Current visit: No Status: Resolved Resolved. (9) DVT prophylaxis: Current visit: No Status: Acute SC Heparin (10) Advance directive on file: Current visit: Yes Status: Acute Full Code Subjective Interval history since last seen: Transferred to the ICU this morning when he was found very difficult to arouse, with visible tachypnea and ABG showing a pH of 7.16. Evidently, he had missed several doses of steroids in the last couple of days. Brendan was given a bolus of IV hydrocortisone, IV bicarb, initiated on bicarb gtt and transferred. There is no evidence of ketones His VBG pH has gone up from 7.13 to 7.18. Clinically, he is improving, now much easier to arouse, expressing that he is unhappy that I am trying to wake him up. He does not respond to my questions. Exam Narrative Exam Narrative: General: Lethargic middle-aged male, does wake up to loud verbal stimuli, mildly tachypneic HEENT: EOMI, MMM Heart: RRR, +NUVIA Lungs: Clear/diminished breath sounds B; mildly tachypneic GI: abdomen soft, nontender, nondistended; cholecyststomy and ileostomy in place Extremities: 1+ BLE edema; R foot dressed Objective Objective Clinical Data: Abnormal lab results 03/14/18 03/14/18 03/14/18 Range/Units 06:26 06:26 11:03 WBC 13.24 H (4.4-10.8) k/cumm RBC 3.98 L (4.50-6.00) m/cumm Hgb 9.4 L (13.5-17.5) g/dL Hct 30.5 L (40.0-50.0) % MCV 76.6 L (80-95) fL MCH 23.6 L (27.0-33.0) pg MCHC 30.8 L (32.0-36.0) g/dL RDW 22.2 H (11.8-14.1) % Plt Count 404 H (130-400) x1000/uL Absolute Neutrophils 10.39 H (1.2-6.7) k/cumm Absolute Lymphocytes 0.90 L (1.2-3.4) k/cumm Absolute Monocytes 1.03 H (0.11-0.7) k/cumm Absolute Eosinophils 0.75 H (0.0-0.7) k/cumm pO2 64 L (83-108) mmHg O2 Saturation 93 L (94-98) % ABG pH 7.16 L* (7.35-7.45) ABG HCO3 14 L (22-28) mmol/L ABG Total CO2 14 L (22-29) mmol/L ABG Base Excess -14.5 L (-3-3) mmol/L VBG pH (7.32-7.43) VBG pO2 (28-44) mm/Hg VBG HCO3 (22-28) mmol/L VBG Total CO2 (22-29) mmol/L VBG O2 Saturation (70-80) % VBG Base Excess (-3-3) mmol/L Chloride 111 H (98-107) mmol/L Carbon Dioxide 16.8 L (21.0-32.0) mmol/L Anion Gap 11.2 H (3-11) mmol/L BUN 34 H (7-18) mg/dL Creatinine 2.41 H (0.70-1.30) mg/dL Lactate (0.6-1.4) mmol/L Urine Protein (Negative) mg/dL Urine Blood (Negative) Ur Leukocyte Esterase (Negative) Vancomycin Trough (10.0-20.0) ug/mL 03/14/18 03/14/18 03/14/18 Range/Units 11:11 12:00 13:20 WBC (4.4-10.8) k/cumm RBC (4.50-6.00) m/cumm Hgb (13.5-17.5) g/dL Hct (40.0-50.0) % MCV (80-95) fL MCH (27.0-33.0) pg MCHC (32.0-36.0) g/dL RDW (11.8-14.1) % Plt Count (130-400) x1000/uL Absolute Neutrophils (1.2-6.7) k/cumm Absolute Lymphocytes (1.2-3.4) k/cumm Absolute Monocytes (0.11-0.7) k/cumm Absolute Eosinophils (0.0-0.7) k/cumm pO2 (83-108) mmHg O2 Saturation (94-98) % ABG pH (7.35-7.45) ABG HCO3 (22-28) mmol/L ABG Total CO2 (22-29) mmol/L ABG Base Excess (-3-3) mmol/L VBG pH (7.32-7.43) VBG pO2 (28-44) mm/Hg VBG HCO3 (22-28) mmol/L VBG Total CO2 (22-29) mmol/L VBG O2 Saturation (70-80) % VBG Base Excess (-3-3) mmol/L Chloride (98-107) mmol/L Carbon Dioxide (21.0-32.0) mmol/L Anion Gap (3-11) mmol/L BUN (7-18) mg/dL Creatinine (0.70-1.30) mg/dL Lactate < 0.1 L (0.6-1.4) mmol/L Urine Protein 100 H (Negative) mg/dL Urine Blood Trace-lysed H (Negative) Ur Leukocyte Esterase Large H (Negative) Vancomycin Trough 28.6 H* (10.0-20.0) ug/mL 03/14/18 03/14/18 03/14/18 Range/Units 13:20 13:20 14:45 WBC (4.4-10.8) k/cumm RBC (4.50-6.00) m/cumm Hgb (13.5-17.5) g/dL Hct (40.0-50.0) % MCV (80-95) fL MCH (27.0-33.0) pg MCHC (32.0-36.0) g/dL RDW (11.8-14.1) % Plt Count (130-400) x1000/uL Absolute Neutrophils (1.2-6.7) k/cumm Absolute Lymphocytes (1.2-3.4) k/cumm Absolute Monocytes (0.11-0.7) k/cumm Absolute Eosinophils (0.0-0.7) k/cumm pO2 (83-108) mmHg O2 Saturation (94-98) % ABG pH (7.35-7.45) ABG HCO3 (22-28) mmol/L ABG Total CO2 (22-29) mmol/L ABG Base Excess (-3-3) mmol/L VBG pH 7.13 L 7.18 L (7.32-7.43) VBG pO2 100 H 68 H (28-44) mm/Hg VBG HCO3 14 L 16 L (22-28) mmol/L VBG Total CO2 14 L 15 L (22-29) mmol/L VBG O2 Saturation 98 H 94 H (70-80) % VBG Base Excess < -4.0 L (-3-3) mmol/L Chloride (98-107) mmol/L Carbon Dioxide (21.0-32.0) mmol/L Anion Gap (3-11) mmol/L BUN (7-18) mg/dL Creatinine (0.70-1.30) mg/dL Lactate < 0.1 L (0.6-1.4) mmol/L Urine Protein (Negative) mg/dL Urine Blood (Negative) Ur Leukocyte Esterase (Negative) Vancomycin Trough (10.0-20.0) ug/mL Vital Signs Temperature 36.0 C L 03/14/18 13:28 Temperature Source Tympanic 03/14/18 13:28 Pulse 59 L 03/14/18 13:28 Pulse Rhythm Regular 03/14/18 08:50 Pulse 66 03/01/18 10:10 Respiratory Rate 15 03/14/18 13:28 Respiratory Effort 03/14/18 13:30 Respiratory Depth Shallow 03/14/18 08:50 Respiratory Pattern Normal 03/14/18 08:50 Blood Pressure 116/57 L 03/14/18 13:28 Blood Pressure Mean 76 03/14/18 13:28 Blood Pressure Position Supine 03/14/18 13:28 Pulse Oximetry 90 L 03/14/18 13:28 Oxygen Delivery Method Room Air 03/14/18 13:28 Oxygen Flow Rate 0 03/14/18 13:28 Pain Level 0 03/14/18 13:28 Comment 03/14/18 10:58 Intake & Output 03/13/18 03/14/18 03/14/18 23:59 11:59 23:59 Intake Total 600 / 1340 1550 / 1660 110 / 1660 Output Total 1225 / 2875 390 / 390 Balance -625 / -1535 1160 / 1270 110 / 1270 Weight 105.6 kg Intake: IV 910 / 1020 110 / 1020 Oral 600 / 1320 640 / 640 Output: Drainage 275 / 425 150 / 150 Right Upper Abdomen 275 / 425 150 / 150 Urine 300 / 1400 240 / 240 Stool 650 / 1050 Other: Urine Color Yellow Yellow Yellow Urine Appearance Clear Clear Sediment Urine Odor Normal Voiding Methods Urinal Urinal Laboratory Results WBC 13.24 k/cumm (4.4-10.8) H 03/14/18 06:26 RBC 3.98 m/cumm (4.50-6.00) L 03/14/18 06:26 Hgb 9.4 g/dL (13.5-17.5) L 03/14/18 06:26 Hct 30.5 % (40.0-50.0) L 03/14/18 06:26 MCV 76.6 fL (80-95) L 03/14/18 06:26 MCH 23.6 pg (27.0-33.0) L 03/14/18 06:26 MCHC 30.8 g/dL (32.0-36.0) L 03/14/18 06:26 RDW 22.2 % (11.8-14.1) H 03/14/18 06:26 Plt Count 404 x1000/uL (130-400) H 03/14/18 06:26 MPV 9.9 fL (8.0-11.0) 03/14/18 06:26 Abs Immat Gran (auto) Cancelled 03/05/18 05:35 Immature Gran % 0.9 03/14/18 06:26 Neutrophils % 78.5 03/14/18 06:26 Lymphocytes % 6.8 03/14/18 06:26 Monocytes % 7.8 03/14/18 06:26 Eosinophils % 5.7 03/14/18 06:26 Basophils % 0.3 03/14/18 06:26 Absolute Neutrophils 10.39 k/cumm (1.2-6.7) H 03/14/18 06:26 Band Neutrophils 2.0 % 03/08/18 06:15 Absolute Lymphocytes 0.90 k/cumm (1.2-3.4) L 03/14/18 06:26 Absolute Monocytes 1.03 k/cumm (0.11-0.7) H 03/14/18 06:26 Absolute Eosinophils 0.75 k/cumm (0.0-0.7) H 03/14/18 06:26 Absolute Basophils 0.04 k/cumm (0.0-0.2) 03/14/18 06:26 Metamyelocytes 1.0 % 03/10/18 06:15 Myelocytes 2.0 % 03/10/18 06:15 Promyelocytes Cancelled 03/05/18 05:35 Nucleated RBCs Cancelled 03/05/18 05:35 Differential Comment Manual differential 03/10/18 06:15 Atypical Lymphocytes Cancelled 03/05/18 05:35 Other Cell Type Cancelled 03/05/18 05:35 RBC Morphology See below 03/10/18 06:15 Polychromasia Present 03/02/18 07:00 Hypochromasia 3+ 03/10/18 06:15 Poikilocytosis 3+ 03/10/18 06:15 Basophilic Stippling Cancelled 03/05/18 05:35 Anisocytosis 3+ 03/10/18 06:15 Microcytosis 3+ 03/10/18 06:15 Macrocytosis Cancelled 03/05/18 05:35 Spherocytes Cancelled 03/05/18 05:35 Target Cells Cancelled 03/05/18 05:35 Tear Drop Cells 2+ 03/01/18 09:38 Ovalocytes 2+ 03/02/18 07:00 Stomatocytes Cancelled 03/05/18 05:35 [place] Bodies Cancelled 03/05/18 05:35 [place] Cells Cancelled 03/05/18 05:35 Acanthocytes (Spur) Cancelled 03/05/18 05:35 Schistocytes Cancelled 03/05/18 05:35 PT 9.6 sec (9.3-11.0) 03/05/18 13:12 INR 1.0 (0.9-1.1) 03/05/18 13:12 Sample Site Left radial 03/14/18 11:03 pCO2 40 mmHg (34-47) 03/14/18 11:03 pO2 64 mmHg (83-108) L 03/14/18 11:03 O2 Saturation 93 % (94-98) L 03/14/18 11:03 ABG pH 7.16 (7.35-7.45) L* 03/14/18 11:03 ABG HCO3 14 mmol/L (22-28) L 03/14/18 11:03 ABG Total CO2 14 mmol/L (22-29) L 03/14/18 11:03 ABG Base Excess -14.5 mmol/L (-3-3) L 03/14/18 11:03 VBG pH 7.18 (7.32-7.43) L 03/14/18 14:45 VBG pCO2 42 mm/Hg (34-47) 03/14/18 14:45 VBG pO2 68 mm/Hg (28-44) H 03/14/18 14:45 VBG HCO3 16 mmol/L (22-28) L 03/14/18 14:45 VBG Total CO2 15 mmol/L (22-29) L 03/14/18 14:45 VBG O2 Saturation 94 % (70-80) H 03/14/18 14:45 VBG Base Excess < -4.0 mmol/L (-3-3) L 03/14/18 14:45 FiO2 21 % 03/14/18 11:03 Sodium 139 mmol/L (136-145) 03/14/18 06:26 Potassium 4.7 mmol/L (3.5-5.1) 03/14/18 06:26 Chloride 111 mmol/L (98-107) H 03/14/18 06:26 Carbon Dioxide 16.8 mmol/L (21.0-32.0) L 03/14/18 06:26 Anion Gap 11.2 mmol/L (3-11) H 03/14/18 06:26 BUN 34 mg/dL (7-18) H 03/14/18 06:26 Creatinine 2.41 mg/dL (0.70-1.30) H 03/14/18 06:26 Estimated GFR/1.73 m2 27.81 (mL/min/1.73m2) 03/14/18 06:26 Glucose 95 mg/dL (70-100) 03/14/18 06:26 Lactate < 0.1 mmol/L (0.6-1.4) L 03/14/18 13:20 Calcium 8.9 mg/dL (8.5-10.1) 03/14/18 06:26 Magnesium 2.0 mg/dL (1.8-2.4) 03/14/18 06:26 Total Bilirubin 0.2 mg/dL (0.2-1.0) 03/01/18 09:38 Conjugated Bilirubin 0.08 mg/dL (0.00-0.20) 03/01/18 09:38 AST 3 U/L (15-37) L 03/01/18 09:38 ALT 13 U/L (12-78) 03/01/18 09:38 Alkaline Phosphatase 273 U/L (46-116) H 03/01/18 09:38 Creatine Kinase 15 U/L (39-308) L 03/08/18 21:20 Total Protein 7.1 g/dL (6.4-8.2) 03/01/18 09:38 Albumin 2.3 g/dL (3.4-5.0) L 03/01/18 09:38 TSH 0.61 uIU/mL (0.358-3.74) 03/02/18 07:00 Urine Color Yellow (Yellow) 03/14/18 12:00 Urine Clarity Cloudy 03/14/18 12:00 Urine pH 6.0 (5-8) 03/14/18 12:00 Ur Specific [place] 1.015 (1.005-1.025) 03/14/18 12:00 Urine Protein 100 mg/dL (Negative) H 03/14/18 12:00 Urine Ketones Negative mg/dL (Negative) 03/14/18 12:00 Urine Blood Trace-lysed (Negative) H 03/14/18 12:00 Urine Nitrite Negative (Negative) 03/14/18 12:00 Urine Bilirubin Negative (Negative) 03/14/18 12:00 Urine Urobilinogen 0.2 EU/dL (Up TO 0.2) 03/14/18 12:00 Ur Leukocyte Esterase Large (Negative) H 03/14/18 12:00 Urine RBC Not Applicable 03/14/18 12:00 Urine WBC >50 HPF (0-5) 03/14/18 12:00 Ur Epithelial Cells Not Applicable 03/14/18 12:00 Urine Crystals Not Applicable 03/14/18 12:00 Urine Bacteria Not Applicable 03/14/18 12:00 Urine Casts 3-5 coarse granular LPF (Negative) 03/04/18 14:20 Urine Mucus Not Applicable 03/14/18 12:00 Urine Other Moderate yeast (Negative) 03/04/18 14:20 Ur Culture Indicated? C&s done as ordered 03/14/18 12:00 Urine Glucose Negative mg/dL (Negative) 03/14/18 12:00 Vancomycin Trough 28.6 ug/mL (10.0-20.0) H* 03/14/18 13:20 CXR: 1. Mild opacities in the right upper lobe and left base may represent atelectasis or pneumonia. 2. There may be mild bilateral pleural effusions.
[2018-03-14] MEDS: Hydrocortisone SOD SUC. 100 MG VIAL 50 MG IVP ×2 (16:31→22:04)
[2018-03-14 17:30] LABS: HCO3 (Venous) 16 mmol/L (22-28); O2 Sat (Venous) 94 % (70-80); TCO2 (Venous) 16 mmol/L (22-29); pCO2 (Venous) 43 mm/Hg (34-47); pO2 (Venous) 69 mm/Hg (28-44)
[2018-03-14 17:33] LABS: Lactate 0.5 mmol/L (0.6-1.4); pH (Venous) 7.19 (7.32-7.43)
[2018-03-14] MEDS: Furosemide 20 MG/2 ML VIAL IVP (19:02)
[2018-03-14] MEDS: VANCOMYCIN 750 MG in Normal Saline 250 ML 166.667 MG IVPB (22:02)
[2018-03-14] MEDS: traZODone 50 MG TAB PO (22:02)
[2018-03-14] MEDS: risperiDONE 1 MG TAB 3 MG PO (22:02)
[2018-03-14] MEDS: Insulin Aspart 300 UNITS/3 ML PEN SC (22:03)
[2018-03-14] MEDS: Insulin Glargine 300 UNITS/3 ML PEN 30 UNITS SC (22:05)
[2018-03-14] MEDS: Melatonin 3 MG TAB 9 MG PO (23:28)
[2018-03-15] VITALS (74 sets, daily range): BP systolic 126–179; BP diastolic 57–80; PULSE 68–92; RESP 13–28; TEMP 37–37.6; O2SAT 92–97
[2018-03-15] MEDS: Hydrocortisone SOD SUC. 100 MG VIAL 50 MG IVP ×4 (04:00→21:32)
[2018-03-15] MEDS: Levothyroxine 75 MCG TAB 37.5 MCG PO (05:05)
[2018-03-15 06:17] LABS: Absolute Basophil Count 0.02 k/cumm (0.0-0.2); Absolute Eosinophil Count 0.14 k/cumm (0.0-0.7); Absolute Lymphocyte Count 0.59 k/cumm (1.2-3.4); Absolute Monocyte Count 0.56 k/cumm (0.11-0.7); Basophils % 0.2; Eosinophils % 1.2; HCT 28.1 % (40.0-50.0); HGB 8.7 g/dL (13.5-17.5); Immature Grans % 0.9; Lymphocytes % 5.1; Mean Corpuscular Hemoglobin 23.6 pg (27.0-33.0); Mean Corpuscular Volume 76.2 fL (80-95); Mean Platelet Volume 9.8 fL (8.0-11.0); Monocytes % 4.8; Neutrophils % 87.8; Platelet Count 402 x1000/uL (130-400); RBC 3.69 m/cumm (4.50-6.00); RBC Distribution Width 22.4 % (11.8-14.1); White Blood Cell Count 11.62 k/cumm (4.4-10.8)
[2018-03-15 06:34] LABS: Anion Gap 10.9 mmol/L (3-11); BUN 29 mg/dL (7-18); C-Reactive Protein 7.17 mg/dL (0.0-0.3); CO2 19.1 mmol/L (21.0-32.0); CREATININE 2.22 mg/dL (0.70-1.30); Chloride 109 mmol/L (98-107); Estimated GFR 30.58 (mL/min/1.73m2); Glucose 250 mg/dL (70-100); Potassium 4.4 mmol/L (3.5-5.1); Sodium 139 mmol/L (136-145)
[2018-03-15 06:44] LABS: Calcium 8.5 mg/dL (8.5-10.1)
[2018-03-15 08:38] LABS: HCO3 (Venous) 19 mmol/L (22-28); O2 Sat (Venous) 90 % (70-80); TCO2 (Venous) 18 mmol/L (22-29); pCO2 (Venous) 47 mm/Hg (34-47); pH (Venous) 7.21 (7.32-7.43); pO2 (Venous) 58 mm/Hg (28-44)
[2018-03-15 08:41] LABS: BE (Venous) -9.3 mmol/L (-3-3)
[2018-03-15] MEDS: Insulin Aspart 300 UNITS/3 ML PEN SC ×4 (08:45→22:14)
[2018-03-15] MEDS: Terazosin 2 MG CAP 4 MG PO ×2 (08:54→21:28)
[2018-03-15] MEDS: Gabapentin 300 MG CAP PO ×3 (08:54→21:27)
[2018-03-15] MEDS: Heparin 5,000 UNITS/ML VIAL 5000 UNITS SC ×2 (08:54→17:00)
[2018-03-15] MEDS: Furosemide 20 MG/2 ML VIAL IVP ×2 (08:54→17:00)
[2018-03-15] MEDS: Folic Acid 1 MG TAB PO (08:54)
[2018-03-15] MEDS: Aspirin E.C. 81 MG TABEC PO ×2 (08:54→21:27)
[2018-03-15] MEDS: Venlafaxine 37.5 MG CAPCR 75 MG PO (08:54)
[2018-03-15] MEDS: Lactobacillus Acidophilus CAP 1 CAP PO ×3 (08:54→21:28)
[2018-03-15] MEDS: Ascorbic Acid 500 MG TAB PO ×2 (08:54→21:27)
[2018-03-15] MEDS: Magnesium Chloride 64 MG TABCR PO ×2 (08:54→21:28)
[2018-03-15] MEDS: carBAMazepine 100 MG CHEW PO ×3 (08:54→21:28)
[2018-03-15] MEDS: Multivitamin TAB 1 TAB PO (08:55)
[2018-03-15] MEDS: Ferrous Sulfate 325 MG TAB PO ×2 (08:55→21:27)
[2018-03-15] MEDS: Cyanocobalamin 500 MCG TAB 1000 MCG PO (08:55)
[2018-03-15] MEDS: Omeprazole 20 MG CAPCR PO (08:55)
[2018-03-15] MEDS: Metoprolol CR 25 MG TABCR PO (08:59)
[2018-03-15] MEDS: Nystatin POWDER 60 GM JAR TP ×2 (10:39→21:28)
--- NOTE | 2018-03-15 11:55 | PT.INDS ---
Date of service: 03/15/18 Time of Service: 11:55 PT Notes 03/15/18 Patient has been seen for PT intervention 1-2x/day for 9 days (03/05/17 - 03/13/17), with declining mobility over the past several days. He transitioned to the ICU 03/13/18, and is subsequently discharged from PT services. If further PT intervention is warranted, a new consult will be required. Carrol Mora, PT, DPT
--- NOTE | 2018-03-15 13:31 | PDOC.CMPRO ---
Care Management Progress Note S/O: Brendan was sitting up opn the side of his bead enjoying breakfast this morning. Alert and talkative.Stated he was confused and concerned about whether or not he would be reimbursed for the time he was at the hospital and not at the [facility]. I assured him we would help get an answer to that question before he was discharged back there. A: 57 yo male admitted for hyperglycemia, encephalopathy and possible sepsis remains ICU level of care today. P: Brendan will return to the [facility] when medically cleared for discharge. Requires wheelchair van for transport.
--- NOTE | 2018-03-15 13:44 | CMPROGNOTE_ITS ---
Care Management Progress Note S/O: Brendan was sitting up opn the side of his bead enjoying breakfast this morning. Alert and talkative.Stated he was confused and concerned about whether or not he would be reimbursed for the time he was at the hospital and not at the [facility]. I assured him we would help get an answer to that question before he was discharged back there. A: 57 yo male admitted for hyperglycemia, encephalopathy and possible sepsis remains ICU level of care today. P: Brendan will return to the [facility] when medically cleared for discharge. Requ ires wheelchair van for transport.
[2018-03-15 14:29] LABS: HCO3 (Venous) 19 mmol/L (22-28); O2 Sat (Venous) 95 % (70-80); TCO2 (Venous) 18 mmol/L (22-29); pCO2 (Venous) 43 mm/Hg (34-47); pH (Venous) 7.25 (7.32-7.43); pO2 (Venous) 69 mm/Hg (28-44)
[2018-03-15 14:30] LABS: BE (Venous) -8.3 mmol/L (-3-3)
[2018-03-15] MEDS: Normal Saline Flush 10 ML SYR IVP (17:00)
--- NOTE | 2018-03-15 18:18 | W.PM.PROGNOT ---
Date of Service Date of service: 03/15/18 Time of Service: 15:00 Assessment and Plan (1) Adrenal insufficiency: Current visit: No Status: Acute Acute on chronic, likely precipitated by missed doses of prednisone. Continue to monitor in the ICU as still not quite himself. I am not changing the dose of hydrocortisone today. Septic workup is negative today with the exception of possible RUL and L base infiltrates, but these are likely actually atelectasis. Continue empiric abx. Monitor mental status closely in ICU. (2) Toxic metabolic encephalopathy: Current visit: Yes Status: Acute Improved, in setting of acute on chronic adrenal insufficiency and metabolic acidosis. Continue to monitor (3) Metabolic acidosis: Current visit: Yes Status: Acute Multifactorial, due to 1. Adrenal insufficiency 2. Chronic kidney disease 3. Fluid overload There is no evidence of ketones on UA to suggest a component of DKA at this time. Off of bicarb gtt, pH 7.25 today - improving. Continue to diurese and treat adrenal insufficiency. (4) 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 2 diabetes mellitus: Current visit: Yes Status: Acute Non-healing diabetic foot ulcer with osteomyelitis right 5th metatarsal. Underwent 11 days of Pip-Tazo and Vancomycin - now s/p debridement on 03/06 with resection of the 5th MPJ - now growing MRSA and Proteus Mirabilis (along with staph epi). Cotninue Vancomycin and Ertapenem, per ID at [facility], for broader coverage in case of other / polymicrobial infection that is not present on current culture. Consider a CTA of the LE's to evaluate perfusion to legs. (5) Chronic cholecystitis: Current visit: Yes Status: Acute Cholecystostomy drain was not changed at [facility] [place] - per discussion with IR, there would not have been a benefit to it from the stand point of decreasing infection risk, as long as the drain is functioning well and continues to drain. (6) HCAP (healthcare-associated pneumonia): Current visit: No Status: Resolved As above - infiltrates on CXR from yesterday are not convincingly pneumonia. Patient is S/p 5 days of therapy with Vancomycin and Pip-Tazo. Sputum cx with MRSA. Continue vancomycin/ertapenem. (7) Acute on chronic kidney failure: Current visit: No Status: Resolved Monitor Cr while diuresing (8) Hyperkalemia: Current visit: No Status: Resolved Resolved. (9) DVT prophylaxis: Current visit: No Status: Acute SC Heparin (10) Advance directive on file: Current visit: Yes Status: Acute Full Code Palliative care consult Subjective Interval history since last seen: Brendan is more responsive/alert today, but not at his baseline. He ate, was able to sit at the edge of the bed, was able to take a couple of steps. He denies dizziness, chest pain, shortness of breath, nausea, vomiting. He asks questions about what is going on with him. Exam Narrative Exam Narrative: General: A&Ox3, lethargic, not himself HEENT: EOMI, MMM Heart: RRR, loud NUVIA, worse than previously heard Lungs: clear diminished breath sounds B GI: abdomen soft, nontender, nondistended; + ileostomy and cholecystostomy drains Extremities: R foot dressed. +1 edema BLE's. Chronic venous stasis changes. Objective Objective Clinical Data: Abnormal lab results 03/15/18 03/15/18 03/15/18 Range/Units 06:00 06:00 08:30 WBC 11.62 H (4.4-10.8) k/cumm RBC 3.69 L (4.50-6.00) m/cumm Hgb 8.7 L (13.5-17.5) g/dL Hct 28.1 L (40.0-50.0) % MCV 76.2 L (80-95) fL MCH 23.6 L (27.0-33.0) pg MCHC 31.0 L (32.0-36.0) g/dL RDW 22.4 H (11.8-14.1) % Plt Count 402 H (130-400) x1000/uL Absolute Neutrophils 10.20 H (1.2-6.7) k/cumm Absolute Lymphocytes 0.59 L (1.2-3.4) k/cumm VBG pH 7.21 L (7.32-7.43) VBG pO2 58 H (28-44) mm/Hg VBG HCO3 19 L (22-28) mmol/L VBG Total CO2 18 L (22-29) mmol/L VBG O2 Saturation 90 H (70-80) % VBG Base Excess -9.3 L (-3-3) mmol/L Chloride 109 H (98-107) mmol/L Carbon Dioxide 19.1 L (21.0-32.0) mmol/L BUN 29 H (7-18) mg/dL Creatinine 2.22 H (0.70-1.30) mg/dL Glucose 250 H D (70-100) mg/dL C-Reactive Protein 7.17 H (0.0-0.3) mg/dL 03/15/18 Range/Units 14:20 WBC (4.4-10.8) k/cumm RBC (4.50-6.00) m/cumm Hgb (13.5-17.5) g/dL Hct (40.0-50.0) % MCV (80-95) fL MCH (27.0-33.0) pg MCHC (32.0-36.0) g/dL RDW (11.8-14.1) % Plt Count (130-400) x1000/uL Absolute Neutrophils (1.2-6.7) k/cumm Absolute Lymphocytes (1.2-3.4) k/cumm VBG pH 7.25 L (7.32-7.43) VBG pO2 69 H (28-44) mm/Hg VBG HCO3 19 L (22-28) mmol/L VBG Total CO2 18 L (22-29) mmol/L VBG O2 Saturation 95 H (70-80) % VBG Base Excess -8.3 L (-3-3) mmol/L Chloride (98-107) mmol/L Carbon Dioxide (21.0-32.0) mmol/L BUN (7-18) mg/dL Creatinine (0.70-1.30) mg/dL Glucose (70-100) mg/dL C-Reactive Protein (0.0-0.3) mg/dL Vital Signs Temperature 37.3 C 03/15/18 13:00 Temperature Source Temporal Artery Scan 03/15/18 13:00 Pulse 83 03/15/18 13:00 Pulse Rhythm Regular 03/14/18 08:50 Pulse 66 03/01/18 10:10 Respiratory Rate 24 03/15/18 13:00 Respiratory Effort Incrsd Work of Breathing 03/15/18 13:00 Respiratory Depth Deep 03/15/18 13:00 Respiratory Pattern Normal 03/15/18 13:00 Blood Pressure 152/65 H 03/15/18 00:00 Blood Pressure Mean 94 03/15/18 00:00 Blood Pressure Position Supine 03/15/18 13:00 Pulse Oximetry 98 03/14/18 19:45 Oxygen Delivery Method Room Air 03/15/18 13:00 Oxygen Flow Rate 0 03/15/18 13:00 Pain Level 0 03/15/18 13:00 Comment 03/14/18 10:58 Intake & Output 03/14/18 03/15/18 03/15/18 23:59 11:59 23:59 Intake Total 590 / 2140 1160 / 1160 Output Total 1175 / 1615 1325 / 2850 1525 / 2850 Balance -585 / 525 -165 / -1690 -1525 / -1690 Weight 105.6 kg 106 kg Intake: IV 110 / 1020 100 / 100 Oral 480 / 1120 1060 / 1060 Output: Drainage 150 / 300 50 / 150 100 / 150 Right Upper Abdomen 150 / 300 50 / 150 100 / 150 Urine 950 / 1190 850 / 1850 1000 / 1850 Stool 75 / 125 425 / 850 425 / 850 Other: Urine Color Pale Yellow Yellow Urine Appearance Cloudy Sediment Comment ruiz to gravity with cloudy urine ruiz to gravity with cloudy urine ruiz to gravity with cloudy urine Stool Occult Blood Negative Stool Characteristics Liquid Brown Laboratory Results WBC 11.62 k/cumm (4.4-10.8) H 03/15/18 06:00 RBC 3.69 m/cumm (4.50-6.00) L 03/15/18 06:00 Hgb 8.7 g/dL (13.5-17.5) L 03/15/18 06:00 Hct 28.1 % (40.0-50.0) L 03/15/18 06:00 MCV 76.2 fL (80-95) L 03/15/18 06:00 MCH 23.6 pg (27.0-33.0) L 03/15/18 06:00 MCHC 31.0 g/dL (32.0-36.0) L 03/15/18 06:00 RDW 22.4 % (11.8-14.1) H 03/15/18 06:00 Plt Count 402 x1000/uL (130-400) H 03/15/18 06:00 MPV 9.8 fL (8.0-11.0) 03/15/18 06:00 Abs Immat Gran (auto) Cancelled 03/05/18 05:35 Immature Gran % 0.9 03/15/18 06:00 Neutrophils % 87.8 03/15/18 06:00 Lymphocytes % 5.1 03/15/18 06:00 Monocytes % 4.8 03/15/18 06:00 Eosinophils % 1.2 03/15/18 06:00 Basophils % 0.2 03/15/18 06:00 Absolute Neutrophils 10.20 k/cumm (1.2-6.7) H 03/15/18 06:00 Band Neutrophils 2.0 % 03/08/18 06:15 Absolute Lymphocytes 0.59 k/cumm (1.2-3.4) L 03/15/18 06:00 Absolute Monocytes 0.56 k/cumm (0.11-0.7) 03/15/18 06:00 Absolute Eosinophils 0.14 k/cumm (0.0-0.7) 03/15/18 06:00 Absolute Basophils 0.02 k/cumm (0.0-0.2) 03/15/18 06:00 Metamyelocytes 1.0 % 03/10/18 06:15 Myelocytes 2.0 % 03/10/18 06:15 Promyelocytes Cancelled 03/05/18 05:35 Nucleated RBCs Cancelled 03/05/18 05:35 Differential Comment Manual differential 03/10/18 06:15 Atypical Lymphocytes Cancelled 03/05/18 05:35 Other Cell Type Cancelled 03/05/18 05:35 RBC Morphology See below 03/10/18 06:15 Polychromasia Present 03/02/18 07:00 Hypochromasia 3+ 03/10/18 06:15 Poikilocytosis 3+ 03/10/18 06:15 Basophilic Stippling Cancelled 03/05/18 05:35 Anisocytosis 3+ 03/10/18 06:15 Microcytosis 3+ 03/10/18 06:15 Macrocytosis Cancelled 03/05/18 05:35 Spherocytes Cancelled 03/05/18 05:35 Target Cells Cancelled 03/05/18 05:35 Tear Drop Cells 2+ 03/01/18 09:38 Ovalocytes 2+ 03/02/18 07:00 Stomatocytes Cancelled 03/05/18 05:35 [place] Bodies Cancelled 03/05/18 05:35 [place] Cells Cancelled 03/05/18 05:35 Acanthocytes (Spur) Cancelled 03/05/18 05:35 Schistocytes Cancelled 03/05/18 05:35 PT 9.6 sec (9.3-11.0) 03/05/18 13:12 INR 1.0 (0.9-1.1) 03/05/18 13:12 Sample Site Left radial 03/14/18 11:03 pCO2 40 mmHg (34-47) 03/14/18 11:03 pO2 64 mmHg (83-108) L 03/14/18 11:03 O2 Saturation 93 % (94-98) L 03/14/18 11:03 ABG pH 7.16 (7.35-7.45) L* 03/14/18 11:03 ABG HCO3 14 mmol/L (22-28) L 03/14/18 11:03 ABG Total CO2 14 mmol/L (22-29) L 03/14/18 11:03 ABG Base Excess -14.5 mmol/L (-3-3) L 03/14/18 11:03 VBG pH 7.25 (7.32-7.43) L 03/15/18 14:20 VBG pCO2 43 mm/Hg (34-47) 03/15/18 14:20 VBG pO2 69 mm/Hg (28-44) H 03/15/18 14:20 VBG HCO3 19 mmol/L (22-28) L 03/15/18 14:20 VBG Total CO2 18 mmol/L (22-29) L 03/15/18 14:20 VBG O2 Saturation 95 % (70-80) H 03/15/18 14:20 VBG Base Excess -8.3 mmol/L (-3-3) L 03/15/18 14:20 FiO2 21 % 03/14/18 11:03 Sodium 139 mmol/L (136-145) 03/15/18 06:00 Potassium 4.4 mmol/L (3.5-5.1) 03/15/18 06:00 Chloride 109 mmol/L (98-107) H 03/15/18 06:00 Carbon Dioxide 19.1 mmol/L (21.0-32.0) L 03/15/18 06:00 Anion Gap 10.9 mmol/L (3-11) 03/15/18 06:00 BUN 29 mg/dL (7-18) H 03/15/18 06:00 Creatinine 2.22 mg/dL (0.70-1.30) H 03/15/18 06:00 Estimated GFR/1.73 m2 30.58 (mL/min/1.73m2) 03/15/18 06:00 Glucose 250 mg/dL (70-100) H D 03/15/18 06:00 Lactate 0.5 mmol/L (0.6-1.4) L 03/14/18 17:22 Calcium 8.5 mg/dL (8.5-10.1) 03/15/18 06:00 Magnesium 2.0 mg/dL (1.8-2.4) 03/15/18 06:00 Total Bilirubin 0.2 mg/dL (0.2-1.0) 03/01/18 09:38 Conjugated Bilirubin 0.08 mg/dL (0.00-0.20) 03/01/18 09:38 AST 3 U/L (15-37) L 03/01/18 09:38 ALT 13 U/L (12-78) 03/01/18 09:38 Alkaline Phosphatase 273 U/L (46-116) H 03/01/18 09:38 Creatine Kinase 15 U/L (39-308) L 03/08/18 21:20 C-Reactive Protein 7.17 mg/dL (0.0-0.3) H 03/15/18 06:00 Total Protein 7.1 g/dL (6.4-8.2) 03/01/18 09:38 Albumin 2.3 g/dL (3.4-5.0) L 03/01/18 09:38 TSH 0.61 uIU/mL (0.358-3.74) 03/02/18 07:00 Urine Color Yellow (Yellow) 03/14/18 12:00 Urine Clarity Cloudy 03/14/18 12:00 Urine pH 6.0 (5-8) 03/14/18 12:00 Ur Specific [place] 1.015 (1.005-1.025) 03/14/18 12:00 Urine Protein 100 mg/dL (Negative) H 03/14/18 12:00 Urine Ketones Negative mg/dL (Negative) 03/14/18 12:00 Urine Blood Trace-lysed (Negative) H 03/14/18 12:00 Urine Nitrite Negative (Negative) 03/14/18 12:00 Urine Bilirubin Negative (Negative) 03/14/18 12:00 Urine Urobilinogen 0.2 EU/dL (Up TO 0.2) 03/14/18 12:00 Ur Leukocyte Esterase Large (Negative) H 03/14/18 12:00 Urine RBC Not Applicable 03/14/18 12:00 Urine WBC >50 HPF (0-5) 03/14/18 12:00 Ur Epithelial Cells Not Applicable 03/14/18 12:00 Urine Crystals Not Applicable 03/14/18 12:00 Urine Bacteria Not Applicable 03/14/18 12:00 Urine Casts 3-5 coarse granular LPF (Negative) 03/04/18 14:20 Urine Mucus Not Applicable 03/14/18 12:00 Urine Other Moderate yeast (Negative) 03/04/18 14:20 Ur Culture Indicated? C&s done as ordered 03/14/18 12:00 Urine Glucose Negative mg/dL (Negative) 03/14/18 12:00 Vancomycin Trough 28.6 ug/mL (10.0-20.0) H* 03/14/18 13:20
--- NOTE | 2018-03-15 20:00 | OT.INDS ---
Date of service: 03/15/18 Time of Service: 20:00 Occupational Therapy Notes 03/15/18 Patient has been seen for OT intervention 1x/day for (03/02/17 - 03/13/17), with declining (I) in ADLS/IADLs and functional activities. He transitioned to the ICU 03/13/18, and is subsequently discharged from OT services. If further OT intervention is needed, a new consult will be required. Suzanne Javier, OTR/L [facility]
[2018-03-15] MEDS: risperiDONE 1 MG TAB 3 MG PO (21:29)
[2018-03-15] MEDS: traZODone 50 MG TAB PO (21:30)
[2018-03-15] MEDS: VANCOMYCIN 750 MG in Normal Saline 250 ML 166.6 MG IVPB (22:03)
[2018-03-15] MEDS: Insulin Glargine 300 UNITS/3 ML PEN 45 UNITS SC (22:16)
[2018-03-16] VITALS (28 sets, daily range): BP systolic 149–182; BP diastolic 45–75; PULSE 59–87; RESP 11–23; TEMP 35.4–37.6; O2SAT 91–98
[2018-03-16] MEDS: Melatonin 3 MG TAB 9 MG PO (00:44)
[2018-03-16] MEDS: Heparin 5,000 UNITS/ML VIAL 5000 UNITS SC ×3 (00:45→15:48)
[2018-03-16] MEDS: Acetaminophen 325 MG TAB PO (04:20)
[2018-03-16] MEDS: Hydrocortisone SOD SUC. 100 MG VIAL 50 MG IVP ×4 (04:24→22:05)
[2018-03-16] MEDS: Levothyroxine 75 MCG TAB 37.5 MCG PO (05:14)
[2018-03-16] MEDS: Normal Saline Flush 10 ML SYR IVP ×2 (05:38→22:05)
[2018-03-16 07:29] LABS: Abs Immature Grans 0.09 k/cumm (0.0-0.09); Absolute Basophil Count 0.04 k/cumm (0.0-0.2); Absolute Eosinophil Count 0.15 k/cumm (0.0-0.7); Absolute Lymphocyte Count 0.71 k/cumm (1.2-3.4); Absolute Monocyte Count 0.66 k/cumm (0.11-0.7); Absolute Neutrophil Count 8.52 k/cumm (1.2-6.7); Basophils % 0.4; Eosinophils % 1.5; HCT 29.2 % (40.0-50.0); HGB 9.1 g/dL (13.5-17.5); Immature Grans % 0.9; Mean Corp. HGB Concentration 31.2 g/dL (32.0-36.0); Mean Corpuscular Hemoglobin 23.8 pg (27.0-33.0); Mean Corpuscular Volume 76.2 fL (80-95); Mean Platelet Volume 9.9 fL (8.0-11.0); Monocytes % 6.5; Neutrophils % 83.7; Platelet Count 448 x1000/uL (130-400); RBC 3.83 m/cumm (4.50-6.00); RBC Distribution Width 21.9 % (11.8-14.1); White Blood Cell Count 10.17 k/cumm (4.4-10.8)
[2018-03-16 08:42] LABS: HCO3 (Venous) 21 mmol/L (22-28); O2 Sat (Venous) 95 % (70-80); TCO2 (Venous) 20 mmol/L (22-29); pCO2 (Venous) 49 mm/Hg (34-47); pH (Venous) 7.24 (7.32-7.43); pO2 (Venous) 71 mm/Hg (28-44)
[2018-03-16 08:46] LABS: BE (Venous) -6.7 mmol/L (-3-3)
--- NOTE | 2018-03-16 09:10 | PDOC.CMPRO ---
Care Management Progress Note S/O: Brendan requires further monitoring prior to discharge. He transferred to ICU status and will remain ICU status at this time per MD. Brendan was sleeping soundly when CM attempted to meet with him; CM updated Isela of the [facility] as to Brendan's current clinical status. CM will continue to follow. A: 57 year old male admitted to [facility] 03/01/18 for Hyperglycemia, encephalopathy, suspected sepsis, pneumonia P: CM will continue to monitor clinical progress and support discharge planning considerations, Brendan will return to the [facility] level one for ongoing IV ABX, wound care, and ongoing PT/OT prior to transferring to LTC as the [facility] is also his residence for the past eight years or so. He will require follow up with Dr. Ashford. Brendan will transport via W/C Van coordinated by this marine underwriter.
--- NOTE | 2018-03-16 09:13 | CMPROGNOTE_ITS ---
Care Management Progress Note S/O: Brendan requires further monitoring prior to discharge. He transferred to ICU status and will remain ICU status at this time per MD. Brendan was sleeping soundly when CM attempted to meet with him; CM updated Isela of the [facility] as to Brendan's current clinical status. CM will continue to follow. A: 57 year old male admitted to [facility] 03/01/18 for Hyperglycemia, encephalopathy, suspected sepsis, pneumonia P: CM will continue to monitor clinical progress and support discharge planning considerations, Brendan will return to the [facility] level one for ongoing IV ABX, wound care, and ongoing PT/OT prior to transferring to LTC as the [facility] is also his residence for the past eight years or so. He will require follow up with Dr. Ashford. Brendan will transport via W/C Van coordinated by this credit underwriter.
[2018-03-16] MEDS: Ascorbic Acid 500 MG TAB PO ×2 (09:54→19:24)
[2018-03-16] MEDS: Magnesium Chloride 64 MG TABCR PO ×2 (09:54→19:23)
[2018-03-16] MEDS: Cyanocobalamin 500 MCG TAB 1000 MCG PO (09:55)
[2018-03-16] MEDS: Lactobacillus Acidophilus CAP 1 CAP PO ×3 (09:55→19:23)
[2018-03-16] MEDS: Gabapentin 300 MG CAP PO ×3 (09:55→19:23)
[2018-03-16] MEDS: Venlafaxine 37.5 MG CAPCR 75 MG PO (09:55)
[2018-03-16] MEDS: Omeprazole 20 MG CAPCR PO (09:55)
[2018-03-16] MEDS: Ferrous Sulfate 325 MG TAB PO ×2 (09:55→19:23)
[2018-03-16] MEDS: carBAMazepine 100 MG CHEW PO ×3 (09:56→19:23)
[2018-03-16] MEDS: Aspirin E.C. 81 MG TABEC PO ×2 (09:56→19:23)
[2018-03-16] MEDS: Metoprolol CR 25 MG TABCR PO (09:56)
[2018-03-16] MEDS: Multivitamin TAB 1 TAB PO (09:56)
[2018-03-16] MEDS: Folic Acid 1 MG TAB PO (09:56)
[2018-03-16] MEDS: Terazosin 2 MG CAP 4 MG PO ×2 (09:56→19:23)
[2018-03-16] MEDS: Furosemide 20 MG/2 ML VIAL IVP ×2 (09:57→15:48)
[2018-03-16] MEDS: Insulin Aspart 300 UNITS/3 ML PEN SC ×4 (09:58→22:40)
[2018-03-16] MEDS: Nystatin POWDER 60 GM JAR TP ×2 (14:17→19:47)
--- NOTE | 2018-03-16 14:30 | MERGE_ITS ---
*[facility]* *[facility]* [address] [place] [address] Date of study: 03/16/2018 Transthoracic Echocardiography M-mode, complete 2D, complete spectral Doppler, and color Doppler *STUDY CONCLUSIONS* Impressions: There are no typical features of vegetative endocarditis. However, this diagnosis cannot be excluded on the basis of this transthoracic study. Consider transesophageal echocardiography, if clinically indicated, for superior assessment of valve anatomy. Summary: 1. Left ventricle: The cavity size was normal. Wall thickness was increased in a pattern of moderate LVH. Systolic function was hyperdynamic. The estimated ejection fraction was 65-70%. Some parameters suggest diastolic dysfunction. There was no evidence of elevated ventricular filling pressure by Doppler parameters. 2. Mitral valve: There was mild regurgitation. 3. Left atrium: The atrium was mildly dilated. 4. Right ventricle: The cavity size was normal. Wall thickness was mildly increased. Systolic function was normal. 5. Right atrium: The atrium was mildly dilated. 6. Atrial septum: No defect or patent foramen ovale was identified. 7. Pulmonary arteries: Pulmonary systolic pressure was in the range of 75mm Hg to 85mm Hg. 8. Inferior vena cava: The vessel was patent and dilated. The respirophasic diameter changes were normal. RAP estimated 5-10 mmHG. *PATIENT PRESENTATION* Height: 185.4cm ((73in) ) S/D Pressure: 161 / 75 Weight: 105.7kg ((232.5lb) ) BSA: 2.36m^2 Test start time: 02:30 PM. Test stop time: 03:30 PM. CONSULTING Anne Horowitz PERFORMING Unknown PERFORMING [facility] SALVAGE LABORER Rosangela Mo, RT (R)(CT), [facility] REFERRING Md Smith Swanson ORDERING Priscila Canela REFERRING Priscila Canela *PROCEDURE DATA* Procedure information: The patient was identified by two identifiers. This study was interpreted by [facility]. Pertinent images and digital data are archived for permanent storage and are available for subsequent review. Comparison was made to the study of 01/27/2018. Study status: Routine. Transthoracic echocardiography. M-mode, complete 2D, complete spectral Doppler, and color Doppler. A Transthoracic Echocardiogram was performed. Scanning was performed from the parasternal, apical, subcostal, and suprasternal notch acoustic windows. Images were obtained using an [id number] cardiac ultrasound machine. Image quality was adequate. Study completion: The patient tolerated the procedure well. History: PMH: Worsening murmur. ? Endocarditis. *CARDIAC ANATOMY* Left ventricle: The cavity size was normal. Wall thickness was increased in a pattern of moderate LVH. Systolic function was hyperdynamic. The estimated ejection fraction was 65-70%. The tissue Doppler parameters were normal. Some parameters suggest diastolic dysfunction. There was no evidence of elevated ventricular filling pressure by Doppler parameters. Aortic valve: Doppler: There was no stenosis. There was no regurgitation. VTI ratio of LVOT to aortic valve: 0.71. Valve area (VTI): 2.5cm^2. Indexed valve area (VTI): 1cm^2/m^2. Peak velocity ratio of LVOT to aortic valve: 0.65. Valve area (Vmax): 2.2cm^2. Indexed valve area (Vmax): 0.9cm^2/m^2. Mean velocity ratio of LVOT to aortic valve: 0.61. Valve area (Vmean): 2.1cm^2. Indexed valve area (Vmean): 0.9cm^2/m^2. Mean gradient (S): 13.9mm Hg. Peak gradient (S): 23.9mm Hg. Aorta: Aortic root: The aortic root was normal in size. Ascending aorta: The ascending aorta was normal in size. Mitral valve: Doppler: There was no evidence for stenosis. There was mild regurgitation. Valve area by pressure half-time: 3.9cm^2. Indexed valve area by pressure half-time: 1.7cm^2/m^2. Peak gradient (D): 4.3mm Hg. Left atrium: The atrium was mildly dilated. Atrial septum: No defect or patent foramen ovale was identified. Right ventricle: The cavity size was normal. Wall thickness was mildly increased. Systolic function was normal. Pulmonic valve: Doppler: There was no evidence for stenosis. There was trivial regurgitation. Tricuspid valve: Doppler: There was mild regurgitation. Pulmonary artery: Poorly visualized. Pulmonary systolic pressure was in the range of 75mm Hg to 85mm Hg. Right atrium: The atrium was mildly dilated. Pericardium: There was no pericardial effusion. Systemic veins: Inferior vena cava: Well visualized. The vessel was patent and dilated. The respirophasic diameter changes were normal. RAP estimated 5-10 mmHG. Baseline ECG: Normal sinus rhythm. Measurements Left ventricle Value 01/27/2018 Reference LV ID, ED, PLAX 5.3 cm 4.8 3.5 - 6.0 LV ID, ES, PLAX 3.6 cm 3.2 2.1 - 4.0 LV PW thickness, ED, PLAX 1.4 cm 1.4 LV end-diastolic volume, 106 ml 86 1-p A2C LV ejection fraction, 1-p 55 % 66 A2C LV end-diastolic volume, 119 ml 111 1-p A4C LV ejection fraction, 1-p 63 % 53 A4C LV e', lateral 0.099 m/sec 0.108 LV E/e', lateral 10 7 LV e', medial 0.086 m/sec 0.093 LV E/e', medial 12 8 LV e', average 0.093 m/sec 0.1 LV E/e', average 11 8 Ventricular septum Value 01/27/2018 Reference IVS thickness, ED, PLAX 1.4 cm 1.5 LVOT Value 01/27/2018 Reference LVOT ID, A-P 2.1 cm 2.1 LVOT area 3.4 cm^2 3.5 LVOT peak velocity, S 1.58 m/sec 1.34 LVOT mean velocity, S 1.09 m/sec 0.98 LVOT VTI, S 33.6 cm 21.1 LVOT peak gradient, S 10 mm Hg 7.2 LVOT mean gradient, S 5.4 mm Hg 4.4 Stroke volume (SV), LVOT 116 ml 74 DP Stroke index (SV/bsa), 49 ml/m^2 31 LVOT DP Aortic valve Value 01/27/2018 Reference Aortic valve peak 2.4 m/sec 2.1 velocity, S Aortic valve mean 1.78 m/sec 1.53 velocity, S Aortic valve VTI, S 47.0 cm 35.0 Aortic mean gradient, S 13.9 mm Hg 10.1 Aortic peak gradient, S 23.9 mm Hg 17.1 VTI ratio, LVOT/AV 0.71 0.6 Aortic valve area, VTI 2.5 cm^2 2.1 Velocity ratio, peak, 0.65 0.65 LVOT/AV Aortic valve area, peak 2.2 cm^2 2.3 velocity Velocity ratio, mean, 0.61 0.64 LVOT/AV Aortic valve area, mean 2.1 cm^2 2.3 velocity Aortic valve area/bsa, 0.9 cm^2/m^2 0.9 mean velocity Aorta Value 01/27/2018 Reference Aortic root ID, ED 3.6 cm 3.5 Ascending aorta ID, A-P, S 3.3 cm 3.3 Left atrium Value 01/27/2018 Reference LA ID, A-P, ES 4.0 cm 2.8 LA ID/bsa, A-P 1.7 cm/m^2 1.2 <=2.2 LA area, ES, A4C (H) 23.6 cm^2 14.5 8.8 - 23.4 LA volume/bsa, ES, 1-p A4C 34 ml/m^2 14 LA/aortic root ratio 1.1 0.79 Mitral valve Value 01/27/2018 Reference Mitral E-wave peak 1.04 m/sec 0.79 velocity Mitral A-wave peak 0.69 m/sec 0.92 velocity Mitral deceleration time 192 ms 336 150 - 230 Mitral pressure half-time 56 ms 97 Mitral peak gradient, D 4.3 mm Hg 2.5 Mitral E/A ratio, peak 1.5 0.86 Mitral valve area, PHT, DP 3.9 cm^2 2.3 Tricuspid valve Value 01/27/2018 Reference Tricuspid regurg peak 4.2 m/sec 3.2 velocity Tricuspid peak RV-RA 70.7 mm Hg 42.1 gradient Right atrium Value 01/27/2018 Reference RA area, ES, A4C (H) 21.5 cm^2 12.8 8.3 - 19.5 Legend: (L) and (H) jamie values outside specified reference range. I have personally reviewed the images and have reviewed and edited the reported findings. Electronically signed by Hemanth Mtz MD 03/16/2018 17:04
[2018-03-16 15:03] LABS: Anion Gap 8.5 mmol/L (3-11); BUN 32 mg/dL (7-18); C-Reactive Protein 2.76 mg/dL (0.0-0.3); CO2 21.5 mmol/L (21.0-32.0); CREATININE 2.21 mg/dL (0.70-1.30); Calcium 8.7 mg/dL (8.5-10.1); Chloride 111 mmol/L (98-107); Estimated GFR 30.74 (mL/min/1.73m2); Glucose 261 mg/dL (70-100); Magnesium 2.1 mg/dL (1.8-2.4); Potassium 4.3 mmol/L (3.5-5.1); Sodium 141 mmol/L (136-145)
--- NOTE | 2018-03-16 18:14 | W.PM.PROGNOT ---
Date of Service Date of service: 03/16/18 Time of Service: 12:30 Assessment and Plan (1) Adrenal insufficiency: Current visit: No Status: Acute Acute on chronic, likely precipitated by missed doses of prednisone, improving. Start to taper steroids.. Septic workup is negative with possible RUL and L base infiltrates, but these are likely actually atelectasis. Continue empiric abx. (2) Toxic metabolic encephalopathy: Current visit: Yes Status: Acute Improved, in setting of acute on chronic adrenal insufficiency and metabolic acidosis. Continue to monitor (3) Metabolic acidosis: Current visit: Yes Status: Acute Multifactorial, due to 1. Adrenal insufficiency 2. Chronic kidney disease 3. Fluid overload Improving. Continue to diurese and treat adrenal insufficiency. I do not quite feel comfortable moving Mr Corley out of the ICU yet. (4) 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 2 diabetes mellitus: Current visit: Yes Status: Ruled-out Not confirmed by bone biopsy, as per my conversation with Dr Ashford. Non-healing diabetic foot ulcer with osteomyelitis right 5th metatarsal. now s/p debridement on 03/06 with resection of the 5th MP. Per Dr Ashford, 2 weeks of abx should be sufficient. Cotninue Vancomycin and Ertapenem, per ID at [facility], for broader coverage in case of other / polymicrobial infection that is not present on current culture. Consider a CTA of the LE's to evaluate perfusion to legs. (5) Chronic cholecystitis: Current visit: Yes Status: Acute Cholecystostomy drain was not changed at [facility] on 03/05/17 - per discussion with IR, there would not have been a benefit to it from the stand point of decreasing infection risk, as long as the drain is functioning well and continues to drain. (6) HCAP (healthcare-associated pneumonia): Current visit: No Status: Resolved As above - infiltrates on repeat CXR are not convincingly pneumonia. Patient is S/p 5 days of therapy with Vancomycin and Pip-Tazo. Sputum cx with MRSA. Continue vancomycin/ertapenem. (7) Acute on chronic kidney failure: Current visit: No Status: Resolved Monitor Cr while diuresing (8) Hyperkalemia: Current visit: No Status: Resolved Resolved. (9) DVT prophylaxis: Current visit: No Status: Acute SC Heparin (10) Advance directive on file: Current visit: Yes Status: Acute Full Code Palliative care consult Subjective Interval history since last seen: Brendan states he feels better. Denies dizziness, chest pain, shortness of breath, nausea, vomiting. Exam Narrative Exam Narrative: General: A&Ox3, lethargic, not himself HEENT: EOMI, MMM Heart: RRR, loud NUVIA Lungs: clear diminished breath sounds B GI: abdomen soft, nontender, nondistended; + ileostomy and cholecystostomy drains Extremities: R foot dressed. +1 edema BLE's. Chronic venous stasis changes. Objective Objective Clinical Data: Abnormal lab results 03/16/18 03/16/18 03/16/18 Range/Units 06:38 06:38 08:40 RBC 3.83 L (4.50-6.00) m/cumm Hgb 9.1 L (13.5-17.5) g/dL Hct 29.2 L (40.0-50.0) % MCV 76.2 L (80-95) fL MCH 23.8 L (27.0-33.0) pg MCHC 31.2 L (32.0-36.0) g/dL RDW 21.9 H (11.8-14.1) % Plt Count 448 H (130-400) x1000/uL Absolute Neutrophils 8.52 H (1.2-6.7) k/cumm Absolute Lymphocytes 0.71 L (1.2-3.4) k/cumm VBG pH 7.24 L (7.32-7.43) VBG pCO2 49 H (34-47) mm/Hg VBG pO2 71 H (28-44) mm/Hg VBG HCO3 21 L (22-28) mmol/L VBG Total CO2 20 L (22-29) mmol/L VBG O2 Saturation 95 H (70-80) % VBG Base Excess -6.7 L (-3-3) mmol/L Chloride 111 H (98-107) mmol/L BUN 32 H (7-18) mg/dL Creatinine 2.21 H (0.70-1.30) mg/dL Glucose 261 H (70-100) mg/dL C-Reactive Protein 2.76 H (0.0-0.3) mg/dL Vital Signs Temperature 35.4 C L 03/16/18 16:45 Temperature Source Temporal Artery Scan 03/16/18 16:45 Pulse 60 03/16/18 16:45 Pulse Rhythm Regular 03/14/18 08:50 Pulse 66 03/16/18 16:00 Respiratory Rate 12 03/16/18 16:45 Respiratory Effort Non-Labored 03/16/18 16:45 Respiratory Depth Normal 03/16/18 16:45 Respiratory Pattern Normal 03/16/18 16:45 Blood Pressure 149/67 H 03/16/18 15:50 Blood Pressure Mean 86 03/16/18 15:50 Blood Pressure Position Supine 03/16/18 16:45 Pulse Oximetry 97 03/16/18 16:45 Oxygen Delivery Method Room Air 03/16/18 16:45 Oxygen Flow Rate 0 03/16/18 16:45 Pain Level 0 03/16/18 16:45 Comment 03/14/18 10:58 Intake & Output 03/15/18 03/16/18 03/16/18 23:59 11:59 23:59 Intake Total 600 / 1760 550 / 1190 640 / 1190 Output Total 3900 / 5225 1275 / 3525 2250 / 3525 Balance -3300 / -3465 -725 / -2335 -1610 / -2335 Weight 106 kg Intake: IV 600 / 700 250 / 290 40 / 290 Oral 300 / 900 600 / 900 Output: Drainage 250 / 300 100 / 250 150 / 250 Right Upper Abdomen 250 / 300 100 / 250 150 / 250 Urine 2850 / 3700 950 / 2650 1700 / 2650 Stool 800 / 1225 225 / 625 400 / 625 Other: Urine Color Yellow Yellow Pale Yellow Urine Appearance Cloudy Cloudy Clear Comment Indwelling ruiz to gravity with cloudy, yellow urine. Indwelling ruiz catheter to gravity with cloudy, yellow urine. Ruiz in place draining large amounts of yellow urine with sediment Laboratory Results WBC 10.17 k/cumm (4.4-10.8) 03/16/18 06:38 RBC 3.83 m/cumm (4.50-6.00) L 03/16/18 06:38 Hgb 9.1 g/dL (13.5-17.5) L 03/16/18 06:38 Hct 29.2 % (40.0-50.0) L 03/16/18 06:38 MCV 76.2 fL (80-95) L 03/16/18 06:38 MCH 23.8 pg (27.0-33.0) L 03/16/18 06:38 MCHC 31.2 g/dL (32.0-36.0) L 03/16/18 06:38 RDW 21.9 % (11.8-14.1) H 03/16/18 06:38 Plt Count 448 x1000/uL (130-400) H 03/16/18 06:38 MPV 9.9 fL (8.0-11.0) 03/16/18 06:38 Abs Immat Gran (auto) Cancelled 03/05/18 05:35 Immature Gran % 0.9 03/16/18 06:38 Neutrophils % 83.7 03/16/18 06:38 Lymphocytes % 7.0 03/16/18 06:38 Monocytes % 6.5 03/16/18 06:38 Eosinophils % 1.5 03/16/18 06:38 Basophils % 0.4 03/16/18 06:38 Absolute Neutrophils 8.52 k/cumm (1.2-6.7) H 03/16/18 06:38 Band Neutrophils 2.0 % 03/08/18 06:15 Absolute Lymphocytes 0.71 k/cumm (1.2-3.4) L 03/16/18 06:38 Absolute Monocytes 0.66 k/cumm (0.11-0.7) 03/16/18 06:38 Absolute Eosinophils 0.15 k/cumm (0.0-0.7) 03/16/18 06:38 Absolute Basophils 0.04 k/cumm (0.0-0.2) 03/16/18 06:38 Metamyelocytes 1.0 % 03/10/18 06:15 Myelocytes 2.0 % 03/10/18 06:15 Promyelocytes Cancelled 03/05/18 05:35 Nucleated RBCs Cancelled 03/05/18 05:35 Differential Comment Manual differential 03/10/18 06:15 Atypical Lymphocytes Cancelled 03/05/18 05:35 Other Cell Type Cancelled 03/05/18 05:35 RBC Morphology See below 03/10/18 06:15 Polychromasia Present 03/02/18 07:00 Hypochromasia 3+ 03/10/18 06:15 Poikilocytosis 3+ 03/10/18 06:15 Basophilic Stippling Cancelled 03/05/18 05:35 Anisocytosis 3+ 03/10/18 06:15 Microcytosis 3+ 03/10/18 06:15 Macrocytosis Cancelled 03/05/18 05:35 Spherocytes Cancelled 03/05/18 05:35 Target Cells Cancelled 03/05/18 05:35 Tear Drop Cells 2+ 03/01/18 09:38 Ovalocytes 2+ 03/02/18 07:00 Stomatocytes Cancelled 03/05/18 05:35 [place] Bodies Cancelled 03/05/18 05:35 Sathya Cells Cancelled 03/05/18 05:35 Acanthocytes (Spur) Cancelled 03/05/18 05:35 Schistocytes Cancelled 03/05/18 05:35 PT 9.6 sec (9.3-11.0) 03/05/18 13:12 INR 1.0 (0.9-1.1) 03/05/18 13:12 Sample Site Left radial 03/14/18 11:03 pCO2 40 mmHg (34-47) 03/14/18 11:03 pO2 64 mmHg (83-108) L 03/14/18 11:03 O2 Saturation 93 % (94-98) L 03/14/18 11:03 ABG pH 7.16 (7.35-7.45) L* 03/14/18 11:03 ABG HCO3 14 mmol/L (22-28) L 03/14/18 11:03 ABG Total CO2 14 mmol/L (22-29) L 03/14/18 11:03 ABG Base Excess -14.5 mmol/L (-3-3) L 03/14/18 11:03 VBG pH 7.24 (7.32-7.43) L 03/16/18 08:40 VBG pCO2 49 mm/Hg (34-47) H 03/16/18 08:40 VBG pO2 71 mm/Hg (28-44) H 03/16/18 08:40 VBG HCO3 21 mmol/L (22-28) L 03/16/18 08:40 VBG Total CO2 20 mmol/L (22-29) L 03/16/18 08:40 VBG O2 Saturation 95 % (70-80) H 03/16/18 08:40 VBG Base Excess -6.7 mmol/L (-3-3) L 03/16/18 08:40 FiO2 21 % 03/14/18 11:03 Sodium 141 mmol/L (136-145) 03/16/18 06:38 Potassium 4.3 mmol/L (3.5-5.1) 03/16/18 06:38 Chloride 111 mmol/L (98-107) H 03/16/18 06:38 Carbon Dioxide 21.5 mmol/L (21.0-32.0) 03/16/18 06:38 Anion Gap 8.5 mmol/L (3-11) 03/16/18 06:38 BUN 32 mg/dL (7-18) H 03/16/18 06:38 Creatinine 2.21 mg/dL (0.70-1.30) H 03/16/18 06:38 Estimated GFR/1.73 m2 30.74 (mL/min/1.73m2) 03/16/18 06:38 Glucose 261 mg/dL (70-100) H 03/16/18 06:38 Lactate 0.5 mmol/L (0.6-1.4) L 03/14/18 17:22 Calcium 8.7 mg/dL (8.5-10.1) 03/16/18 06:38 Magnesium 2.1 mg/dL (1.8-2.4) 03/16/18 06:38 Total Bilirubin 0.2 mg/dL (0.2-1.0) 03/01/18 09:38 Conjugated Bilirubin 0.08 mg/dL (0.00-0.20) 03/01/18 09:38 AST 3 U/L (15-37) L 03/01/18 09:38 ALT 13 U/L (12-78) 03/01/18 09:38 Alkaline Phosphatase 273 U/L (46-116) H 03/01/18 09:38 Creatine Kinase 15 U/L (39-308) L 03/08/18 21:20 C-Reactive Protein 2.76 mg/dL (0.0-0.3) H 03/16/18 06:38 Total Protein 7.1 g/dL (6.4-8.2) 03/01/18 09:38 Albumin 2.3 g/dL (3.4-5.0) L 03/01/18 09:38 TSH 0.61 uIU/mL (0.358-3.74) 03/02/18 07:00 Urine Color Yellow (Yellow) 03/14/18 12:00 Urine Clarity Cloudy 03/14/18 12:00 Urine pH 6.0 (5-8) 03/14/18 12:00 Ur Specific [place] 1.015 (1.005-1.025) 03/14/18 12:00 Urine Protein 100 mg/dL (Negative) H 03/14/18 12:00 Urine Ketones Negative mg/dL (Negative) 03/14/18 12:00 Urine Blood Trace-lysed (Negative) H 03/14/18 12:00 Urine Nitrite Negative (Negative) 03/14/18 12:00 Urine Bilirubin Negative (Negative) 03/14/18 12:00 Urine Urobilinogen 0.2 EU/dL (Up TO 0.2) 03/14/18 12:00 Ur Leukocyte Esterase Large (Negative) H 03/14/18 12:00 Urine RBC Not Applicable 03/14/18 12:00 Urine WBC >50 HPF (0-5) 03/14/18 12:00 Ur Epithelial Cells Not Applicable 03/14/18 12:00 Urine Crystals Not Applicable 03/14/18 12:00 Urine Bacteria Not Applicable 03/14/18 12:00 Urine Casts 3-5 coarse granular LPF (Negative) 03/04/18 14:20 Urine Mucus Not Applicable 03/14/18 12:00 Urine Other Moderate yeast (Negative) 03/04/18 14:20 Ur Culture Indicated? C&s done as ordered 03/14/18 12:00 Urine Glucose Negative mg/dL (Negative) 03/14/18 12:00 Vancomycin Trough 28.6 ug/mL (10.0-20.0) H* 03/14/18 13:20 Echo: 1. Left ventricle: The cavity size was normal. Wall thickness was increased in a pattern of moderate LVH. Systolic function was hyperdynamic. The estimated ejection fraction was 65-70%. Some parameters suggest diastolic dysfunction. There was no evidence of elevated ventricular filling pressure by Doppler parameters. 2. Mitral valve: There was mild regurgitation. 3. Left atrium: The atrium was mildly dilated. 4. Right ventricle: The cavity size was normal. Wall thickness was mildly increased. Systolic function was normal. 5. Right atrium: The atrium was mildly dilated. 6. Atrial septum: No defect or patent foramen ovale was identified. 7. Pulmonary arteries: Pulmonary systolic pressure was in the range of 75mm Hg to 85mm Hg. 8. Inferior vena cava: The vessel was patent and dilated. The respirophasic diameter changes were normal. RAP estimated 5-10 mmHG.
--- NOTE | 2018-03-16 18:18 | W.PM.PROGNOT ---
Date of Service Date of service: 03/16/18 Time of Service: 18:19 Subjective Patient reports: no new complaints Interval history since last seen: Brendan is seen at bedside on my initial entrance into his room he was unresponsive. 10 minutes later he appeared to be fully awake, oriented to time day person and place. He has questions concerning the frequency of his dressing changes to his right foot. Exam Narrative Exam Narrative: Dressings are removed from his right foot. The incision is clean dry and intact. No erythema noted there is no drainage. The ulceration that was under the fifth metatarsal head region is granulating nicely without signs of infection. The other wounds that are noted on his right great toe are practically healed and show no signs of complication. Impressions: 9 days status post debridement right foot with resection of the fifth MPJ Plan pathology reports no findings of osteomyelitis in the bone fragments sent to them. His wounds are consolidating nicely, the plantar ulceration is granulating up very well without signs of infection or complication. Discussed the case with Dr. Canela. I believe the course of antibiotics can be shortened and I would recommend approximately 2 weeks from a podiatric perspective. We will reduce his current wound care to once a day but will continue with the same protocol otherwise leave the sutures in until the end of the week. I will follow as needed. Objective Objective Clinical Data: Abnormal lab results 03/16/18 03/16/18 03/16/18 Range/Units 06:38 06:38 08:40 RBC 3.83 L (4.50-6.00) m/cumm Hgb 9.1 L (13.5-17.5) g/dL Hct 29.2 L (40.0-50.0) % MCV 76.2 L (80-95) fL MCH 23.8 L (27.0-33.0) pg MCHC 31.2 L (32.0-36.0) g/dL RDW 21.9 H (11.8-14.1) % Plt Count 448 H (130-400) x1000/uL Absolute Neutrophils 8.52 H (1.2-6.7) k/cumm Absolute Lymphocytes 0.71 L (1.2-3.4) k/cumm VBG pH 7.24 L (7.32-7.43) VBG pCO2 49 H (34-47) mm/Hg VBG pO2 71 H (28-44) mm/Hg VBG HCO3 21 L (22-28) mmol/L VBG Total CO2 20 L (22-29) mmol/L VBG O2 Saturation 95 H (70-80) % VBG Base Excess -6.7 L (-3-3) mmol/L Chloride 111 H (98-107) mmol/L BUN 32 H (7-18) mg/dL Creatinine 2.21 H (0.70-1.30) mg/dL Glucose 261 H (70-100) mg/dL C-Reactive Protein 2.76 H (0.0-0.3) mg/dL Vital Signs Temperature 35.4 C L 03/16/18 16:45 Temperature Source Temporal Artery Scan 03/16/18 16:45 Pulse 60 03/16/18 16:45 Pulse Rhythm Regular 03/14/18 08:50 Pulse 66 03/16/18 16:00 Respiratory Rate 12 03/16/18 16:45 Respiratory Effort Non-Labored 03/16/18 16:45 Respiratory Depth Normal 03/16/18 16:45 Respiratory Pattern Normal 03/16/18 16:45 Blood Pressure 149/67 H 03/16/18 15:50 Blood Pressure Mean 86 03/16/18 15:50 Blood Pressure Position Supine 03/16/18 16:45 Pulse Oximetry 97 03/16/18 16:45 Oxygen Delivery Method Room Air 03/16/18 16:45 Oxygen Flow Rate 0 03/16/18 16:45 Pain Level 0 03/16/18 16:45 Comment 03/14/18 10:58 Intake & Output 03/15/18 03/16/18 03/16/18 18:59 06:59 18:59 Intake Total 600 / 1650 1050 / 1650 640 / 640 Output Total 2675 / 5175 2500 / 5175 2250 / 2250 Balance -2075 / -3525 -1450 / -3525 -1610 / -1610 Weight 106 kg Intake: IV 100 / 850 750 / 850 40 / 40 Oral 500 / 800 300 / 800 600 / 600 Output: Drainage 100 / 350 250 / 350 150 / 150 Right Upper Abdomen 100 / 350 250 / 350 150 / 150 Urine 1900 / 3800 1900 / 3800 1700 / 1700 Stool 675 / 1025 350 / 1025 400 / 400 Other: Urine Color Yellow Yellow Pale Yellow Urine Appearance Cloudy Cloudy Clear Comment ruiz to gravity with cloudy urine Indwelling ruiz to gravity with cloudy, yellow urine. Ruiz in place draining large amounts of yellow urine with sediment Laboratory Results WBC 10.17 k/cumm (4.4-10.8) 03/16/18 06:38 RBC 3.83 m/cumm (4.50-6.00) L 03/16/18 06:38 Hgb 9.1 g/dL (13.5-17.5) L 03/16/18 06:38 Hct 29.2 % (40.0-50.0) L 03/16/18 06:38 MCV 76.2 fL (80-95) L 03/16/18 06:38 MCH 23.8 pg (27.0-33.0) L 03/16/18 06:38 MCHC 31.2 g/dL (32.0-36.0) L 03/16/18 06:38 RDW 21.9 % (11.8-14.1) H 03/16/18 06:38 Plt Count 448 x1000/uL (130-400) H 03/16/18 06:38 MPV 9.9 fL (8.0-11.0) 03/16/18 06:38 Abs Immat Gran (auto) Cancelled 03/05/18 05:35 Immature Gran % 0.9 03/16/18 06:38 Neutrophils % 83.7 03/16/18 06:38 Lymphocytes % 7.0 03/16/18 06:38 Monocytes % 6.5 03/16/18 06:38 Eosinophils % 1.5 03/16/18 06:38 Basophils % 0.4 03/16/18 06:38 Absolute Neutrophils 8.52 k/cumm (1.2-6.7) H 03/16/18 06:38 Band Neutrophils 2.0 % 03/08/18 06:15 Absolute Lymphocytes 0.71 k/cumm (1.2-3.4) L 03/16/18 06:38 Absolute Monocytes 0.66 k/cumm (0.11-0.7) 03/16/18 06:38 Absolute Eosinophils 0.15 k/cumm (0.0-0.7) 03/16/18 06:38 Absolute Basophils 0.04 k/cumm (0.0-0.2) 03/16/18 06:38 Metamyelocytes 1.0 % 03/10/18 06:15 Myelocytes 2.0 % 03/10/18 06:15 Promyelocytes Cancelled 03/05/18 05:35 Nucleated RBCs Cancelled 03/05/18 05:35 Differential Comment Manual differential 03/10/18 06:15 Atypical Lymphocytes Cancelled 03/05/18 05:35 Other Cell Type Cancelled 03/05/18 05:35 RBC Morphology See below 03/10/18 06:15 Polychromasia Present 03/02/18 07:00 Hypochromasia 3+ 03/10/18 06:15 Poikilocytosis 3+ 03/10/18 06:15 Basophilic Stippling Cancelled 03/05/18 05:35 Anisocytosis 3+ 03/10/18 06:15 Microcytosis 3+ 03/10/18 06:15 Macrocytosis Cancelled 03/05/18 05:35 Spherocytes Cancelled 03/05/18 05:35 Target Cells Cancelled 03/05/18 05:35 Tear Drop Cells 2+ 03/01/18 09:38 Ovalocytes 2+ 03/02/18 07:00 Stomatocytes Cancelled 03/05/18 05:35 [place] Bodies Cancelled 03/05/18 05:35 Sathya Cells Cancelled 03/05/18 05:35 Acanthocytes (Spur) Cancelled 03/05/18 05:35 Schistocytes Cancelled 03/05/18 05:35 PT 9.6 sec (9.3-11.0) 03/05/18 13:12 INR 1.0 (0.9-1.1) 03/05/18 13:12 Sample Site Left radial 03/14/18 11:03 pCO2 40 mmHg (34-47) 03/14/18 11:03 pO2 64 mmHg (83-108) L 03/14/18 11:03 O2 Saturation 93 % (94-98) L 03/14/18 11:03 ABG pH 7.16 (7.35-7.45) L* 03/14/18 11:03 ABG HCO3 14 mmol/L (22-28) L 03/14/18 11:03 ABG Total CO2 14 mmol/L (22-29) L 03/14/18 11:03 ABG Base Excess -14.5 mmol/L (-3-3) L 03/14/18 11:03 VBG pH 7.24 (7.32-7.43) L 03/16/18 08:40 VBG pCO2 49 mm/Hg (34-47) H 03/16/18 08:40 VBG pO2 71 mm/Hg (28-44) H 03/16/18 08:40 VBG HCO3 21 mmol/L (22-28) L 03/16/18 08:40 VBG Total CO2 20 mmol/L (22-29) L 03/16/18 08:40 VBG O2 Saturation 95 % (70-80) H 03/16/18 08:40 VBG Base Excess -6.7 mmol/L (-3-3) L 03/16/18 08:40 FiO2 21 % 03/14/18 11:03 Sodium 141 mmol/L (136-145) 03/16/18 06:38 Potassium 4.3 mmol/L (3.5-5.1) 03/16/18 06:38 Chloride 111 mmol/L (98-107) H 03/16/18 06:38 Carbon Dioxide 21.5 mmol/L (21.0-32.0) 03/16/18 06:38 Anion Gap 8.5 mmol/L (3-11) 03/16/18 06:38 BUN 32 mg/dL (7-18) H 03/16/18 06:38 Creatinine 2.21 mg/dL (0.70-1.30) H 03/16/18 06:38 Estimated GFR/1.73 m2 30.74 (mL/min/1.73m2) 03/16/18 06:38 Glucose 261 mg/dL (70-100) H 03/16/18 06:38 Lactate 0.5 mmol/L (0.6-1.4) L 03/14/18 17:22 Calcium 8.7 mg/dL (8.5-10.1) 03/16/18 06:38 Magnesium 2.1 mg/dL (1.8-2.4) 03/16/18 06:38 Total Bilirubin 0.2 mg/dL (0.2-1.0) 03/01/18 09:38 Conjugated Bilirubin 0.08 mg/dL (0.00-0.20) 03/01/18 09:38 AST 3 U/L (15-37) L 03/01/18 09:38 ALT 13 U/L (12-78) 03/01/18 09:38 Alkaline Phosphatase 273 U/L (46-116) H 03/01/18 09:38 Creatine Kinase 15 U/L (39-308) L 03/08/18 21:20 C-Reactive Protein 2.76 mg/dL (0.0-0.3) H 03/16/18 06:38 Total Protein 7.1 g/dL (6.4-8.2) 03/01/18 09:38 Albumin 2.3 g/dL (3.4-5.0) L 03/01/18 09:38 TSH 0.61 uIU/mL (0.358-3.74) 03/02/18 07:00 Urine Color Yellow (Yellow) 03/14/18 12:00 Urine Clarity Cloudy 03/14/18 12:00 Urine pH 6.0 (5-8) 03/14/18 12:00 Ur Specific [place] 1.015 (1.005-1.025) 03/14/18 12:00 Urine Protein 100 mg/dL (Negative) H 03/14/18 12:00 Urine Ketones Negative mg/dL (Negative) 03/14/18 12:00 Urine Blood Trace-lysed (Negative) H 03/14/18 12:00 Urine Nitrite Negative (Negative) 03/14/18 12:00 Urine Bilirubin Negative (Negative) 03/14/18 12:00 Urine Urobilinogen 0.2 EU/dL (Up TO 0.2) 03/14/18 12:00 Ur Leukocyte Esterase Large (Negative) H 03/14/18 12:00 Urine RBC Not Applicable 03/14/18 12:00 Urine WBC >50 HPF (0-5) 03/14/18 12:00 Ur Epithelial Cells Not Applicable 03/14/18 12:00 Urine Crystals Not Applicable 03/14/18 12:00 Urine Bacteria Not Applicable 03/14/18 12:00 Urine Casts 3-5 coarse granular LPF (Negative) 03/04/18 14:20 Urine Mucus Not Applicable 03/14/18 12:00 Urine Other Moderate yeast (Negative) 03/04/18 14:20 Ur Culture Indicated? C&s done as ordered 03/14/18 12:00 Urine Glucose Negative mg/dL (Negative) 03/14/18 12:00 Vancomycin Trough 28.6 ug/mL (10.0-20.0) H* 03/14/18 13:20
[2018-03-16] MEDS: VANCOMYCIN 750 MG in Normal Saline 250 ML 166.6 MG IVPB (22:04)
[2018-03-16] MEDS: Insulin Glargine 300 UNITS/3 ML PEN 45 UNITS SC (22:40)
[2018-03-17] VITALS (13 sets, daily range): BP systolic 143–188; BP diastolic 63–89; PULSE 58–78; RESP 17–23; TEMP 36.5–36.9; O2SAT 94–97
[2018-03-17] MEDS: risperiDONE 1 MG TAB 3 MG PO (00:33)
[2018-03-17] MEDS: Melatonin 3 MG TAB 9 MG PO (00:34)
[2018-03-17] MEDS: traZODone 50 MG TAB PO (00:35)
[2018-03-17] MEDS: Heparin 5,000 UNITS/ML VIAL 5000 UNITS SC ×3 (00:36→15:42)
[2018-03-17] MEDS: Hydrocortisone SOD SUC. 100 MG VIAL 50 MG IVP ×2 (04:51→09:32)
[2018-03-17] MEDS: Levothyroxine 75 MCG TAB 37.5 MCG PO (05:18)
[2018-03-17] MEDS: Normal Saline Flush 10 ML SYR IVP ×4 (05:19→21:34)
[2018-03-17 06:57] LABS: BE (Venous) -1.9 mmol/L (-3-3); HCO3 (Venous) 25 mmol/L (22-28); O2 Sat (Venous) 90 % (70-80); TCO2 (Venous) 24 mmol/L (22-29); pCO2 (Venous) 51 mm/Hg (34-47); pH (Venous) 7.29 (7.32-7.43); pO2 (Venous) 57 mm/Hg (28-44)
[2018-03-17] MEDS: Venlafaxine 37.5 MG CAPCR 75 MG PO (09:30)
[2018-03-17] MEDS: Acetaminophen 325 MG TAB PO ×2 (09:30→19:52)
[2018-03-17] MEDS: Lactobacillus Acidophilus CAP 1 CAP PO ×3 (09:30→19:45)
[2018-03-17] MEDS: carBAMazepine 100 MG CHEW PO ×3 (09:30→19:45)
[2018-03-17] MEDS: Magnesium Chloride 64 MG TABCR PO ×2 (09:30→19:45)
[2018-03-17] MEDS: Ferrous Sulfate 325 MG TAB PO ×2 (09:31→19:47)
[2018-03-17] MEDS: Cyanocobalamin 500 MCG TAB 1000 MCG PO (09:31)
[2018-03-17] MEDS: Gabapentin 300 MG CAP PO ×3 (09:31→19:44)
[2018-03-17] MEDS: Omeprazole 20 MG CAPCR PO (09:31)
[2018-03-17] MEDS: Terazosin 2 MG CAP 4 MG PO ×2 (09:31→19:45)
[2018-03-17] MEDS: Multivitamin TAB 1 TAB PO (09:31)
[2018-03-17] MEDS: Aspirin E.C. 81 MG TABEC PO ×2 (09:32→19:45)
[2018-03-17] MEDS: Metoprolol CR 25 MG TABCR PO (09:32)
[2018-03-17] MEDS: Ascorbic Acid 500 MG TAB PO ×2 (09:32→19:44)
[2018-03-17] MEDS: Folic Acid 1 MG TAB PO (09:32)
[2018-03-17] MEDS: Furosemide 20 MG/2 ML VIAL IVP ×2 (09:33→15:42)
[2018-03-17] MEDS: Insulin Aspart 300 UNITS/3 ML PEN SC ×4 (09:35→21:43)
[2018-03-17 10:36] LABS: Abs Immature Grans 0.08 k/cumm (0.0-0.09); Absolute Basophil Count 0.05 k/cumm (0.0-0.2); Absolute Monocyte Count 0.93 k/cumm (0.11-0.7); Absolute Neutrophil Count 7.85 k/cumm (1.2-6.7); Basophils % 0.5; Eosinophils % 2.9; HGB 9.3 g/dL (13.5-17.5); Immature Grans % 0.8; Lymphocytes % 11.5; Mean Corpuscular Hemoglobin 23.8 pg (27.0-33.0); Mean Corpuscular Volume 76.7 fL (80-95); Mean Platelet Volume 9.5 fL (8.0-11.0); Monocytes % 8.9; Neutrophils % 75.4; Platelet Count 457 x1000/uL (130-400); RBC 3.91 m/cumm (4.50-6.00); RBC Distribution Width 21.6 % (11.8-14.1); White Blood Cell Count 10.41 k/cumm (4.4-10.8)
[2018-03-17 10:50] LABS: Anion Gap 7.8 mmol/L (3-11); BUN 33 mg/dL (7-18); CO2 27.2 mmol/L (21.0-32.0); CREATININE 2.09 mg/dL (0.70-1.30); Calcium 8.6 mg/dL (8.5-10.1); Chloride 108 mmol/L (98-107); Estimated GFR 32.78 (mL/min/1.73m2); Glucose 162 mg/dL (70-100); Magnesium 1.9 mg/dL (1.8-2.4); Potassium 3.5 mmol/L (3.5-5.1); Sodium 143 mmol/L (136-145)
[2018-03-17] MEDS: amLODIPine 5 MG TAB 10 MG PO (11:04)
--- NOTE | 2018-03-17 14:14 | PT.INIE ---
Date of service: 03/17/18 Time of Service: 13:00 PT Notes Inpatient Physical Therapy Evaluation Date: March 17, 2018 Referring Doctor: Priscila Canela MD PT Orders: PT CONSULT: eval and treat Precautions: Falls, Standard, Drop Patient Profile/Admitting Diagnosis: Patient admitted with toxic metabolic encephalopathy. He is a resident of [facility], with complicated medical history. Initial referral was received on 03/01/2018, although patient has refused PT evaluation in the interval. PMHX: MRSA bacteremia; chronic adrenal insufficiency; RA with chronic steroid use; Crohn's disease, status post ileostomy; sepsis; history of cardiac arrest; cholecystitis, status post cholecystectomy drain Social History/Home Situation: Patient is a resident of [facility]. Per his report he walks short distances only, he estimates approximately 10 steps with use of wheeled walker. He does not manage stairs. Equipment Owned/DME: Wheeled walker, resides in long-term care facility Subjective: Patient is resting in bed. He states that he is agree to bed exercises only. He does not want to get up until after 2pm. Objective: General Observation: Resting in bed, telemetry, IV right UE, catheter, ileostomy. Patient has several wounds throughout the lower extremities, in various stages of healing. His right foot is dressed. Mental Status: A and O x3 Pain: Denies pain currently ROM: Right Upper Extremity: Shoulder flexion 80 degrees. Elbow motion is limited to 95 degrees flexion, lacking at least 30 degrees of terminal extension. Good functional opening of the hand. Left Upper Extremity: Shoulder flexion 80 degrees. Elbow motion is within functional limits. Patient able to demonstrate full student services representative, although only 50% hand opening actively; passively he is able to achieve good functional opening of the hand. Right Lower Extremity: Patient has approximately 15-20 degree knee flexion contracture. Demonstrates ankle dorsiflexion to 0 degrees. Left Lower Extremity: Patient has approximately 15-20 degree knee flexion contracture. Demonstrates ankle dorsiflexion to 0 degrees. Strength: Right Upper Extremity: Shoulder flexion 3-/5. Biceps 4+/5. Triceps 4-/5. Director Of Corporate Sponsorships is weak but equal. Left Upper Extremity: Shoulder flexion 3-/5. Biceps 4+/5. Triceps 4-/5. Director Of Corporate Sponsorships is weak but equal. Right Lower Extremity: Hip flexion 4+/5. Quads 4+/5. Hamstrings 4/5. Ankle dorsiflexion 3/5. Left Lower Extremity: Hip flexion 4+/5. Quads 4+/5. Hamstrings 4/5. Ankle dorsiflexion 3/5. Bed Mobility/Transfers: Supine to sit: Min assist with head of bed at 30 degrees Sit to stand: Min assist with FWW Stand to sit: Min assist with FWW Bed to chair: 3 steps to bedside recliner with use of FWW min assist Gait:Refused- other than to bedside recliner Balance: Static Sitting: Normal Dynamic Sitting: Normal Static Standing: Fair Dynamic Standing: Poor Special Tests: Mobility Limitations Standardized Measure [facility] AM-PAC 6 clicks Basic Mobility Inpatient Short Form: Raw Score: 14 standardized Score: 38.1 [facility] Score: 61% [facility] Modifier: CL Informed Consent/Education: Patient instructed in purpose of PT consult and plan of care. Assessment: Patient is a 57 year old male referred to physical therapy services with the diagnosis of toxic metabolic encephalopathy. Patient presents with clinical signs and symptoms consistent with diminished mobility related to acute medical issues. Patient does have chronic mobility deficits, and resides in a long-term care facility, where he requires assistance with all ambulation and self-care. PT goals will be targeted at maximizing patient's mobility and strength to allow for safe transition back to long-term care facility. He currently demonstrates the following impairment level findings: 1. Decreased lower extremity strength 2. Decreased upper extremity strength 3. Decreased activity tolerance 4. Decreased range of motion bilateral knees and hands Impairments are contributing to the following functional limitations: 1. Unable to tolerate short distance ambulation 2. Patient requiring assistance with bed mobility 3. Decreased activity tolerance 4. Decreased safety with transfers [facility] score 61% deficit Patient is assessed as High 69703 complexity based on the following: History: Diminished mobility due to acute medical issues and 57-year-old male with complicated medical history and gradual decline in independence and mobility. Patient has been residing in a long-term care facility for the past 5 years, and admits to limited mobility in that setting. He also struggles with multiple areas of joint pain related to RA, multiple wounds in various stages of healing, and history of significant cardiac and GI issues. Full medical history can be found noted above. Examination: Functional limitations as noted above Presentation: Unstable Decision Making: High complexity Goals: Goals X1 week 1. Supine-Sit independent 2. Sit-Supine independent 3. Sit-Stand CG with upper extremity support to wheeled walker 4. Stand-Sit CG 5. Bed-Chair min assist with WW 6. Chair-Bed min assist with WW 7. Gait: 10' with WW and min A Plan of Care/Treatment Plan: 1-2x/day, 7 days/week x 1 week. Plan of care has been reviewed with the RESISTOR TESTER providing the service under Physical Therapy direction. Initiate Physical Therapy intervention for strengthening, bed mobility, transfers, gait, balance training, use of assistive device. DISCHARGE RECOMMENDATIONS: Return to the [facility] with no equipment needs anticipated TREATMENT CODE/TIME: 30 minutes (77835) G Codes in the area mobility of walking and moving around: current status [id number] CL; projected status GP [id number]. Discharge status (if discharging) GP [id number] CL. Thank you for this referral. Racquel Bermudez, MPT
[2018-03-17] MEDS: Hydrocortisone SOD SUC. 100 MG VIAL 25 MG IVP ×2 (15:41→21:34)
[2018-03-17] MEDS: hydrALAZINE 10 MG TAB PO ×2 (15:42→19:45)
[2018-03-17] MEDS: cloNIDine 0.1 MG TAB PO ×2 (15:43→19:45)
--- NOTE | 2018-03-17 15:57 | PGE_ITS ---
Date of Service Date of service: 03/17/18 Time of Service: 11:30 Assessment and Plan (1) Adrenal insufficiency: Current visit: No Status: Acute Acute on chronic, likely precipitated by missed doses of prednisone, improving. Continue very slow steroid taper. Septic workup is negative with possible RUL and L base infiltrates, but these are likely actually atelectasis. Continue empiric abx. (2) Toxic metabolic encephalopathy: Current visit: Yes Status: Acute Resolving, in setting of acute on chronic adrenal insufficiency and metabolic acidosis. Continue to monitor (3) Metabolic acidosis: Current visit: Yes Status: Acute Multifactorial, due to 1. Adrenal insufficiency 2. Chronic kidney disease 3. Fluid overload Improving. Continue to diurese and treat adrenal insufficiency. VBG shows pH of 7.29 today. Transferred out of the ICU. (4) 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 2 diabetes mellitus: Current visit: Yes Status: Ruled-out Not confirmed by bone biopsy, as per my conversation with Dr Ashford. Non-healing diabetic foot ulcer with osteomyelitis right 5th metatarsal. now s/p debridement on 03/06 with resection of the 5th MP. Per Dr Ashford, 2 weeks of abx should be sufficient (end date 03/21/18) Cotninue Vancomycin and Ertapenem, per ID at [facility], for broader coverage in case of other / polymicrobial infection that is not present on current culture. Consider a CTA of the LE's to evaluate perfusion to legs. (5) Chronic cholecystitis: Current visit: Yes Status: Acute [place]olecystostomy [place] was not [place] [facility] [place] - per discussion with IR, there would not have been a benefit to it from the stand point of decreasing infection risk, as long as the drain is functioning well and continues to drain. (6) HCAP (healthcare-associated pneumonia): Current visit: No Status: Resolved As above - infiltrates on repeat CXR are not convincingly pneumonia. Patient is S/p 5 days of therapy with Vancomycin and Pip-Tazo. Sputum cx with MRSA. Continue vancomycin/ertapenem. Will repeat CXR. (7) Acute on chronic kidney failure: Current visit: No Status: Resolved Monitor Cr while diuresing (8) Hyperkalemia: Current visit: No Status: Resolved Resolved. (9) DVT prophylaxis: Current visit: No Status: Acute SC Heparin (10) Advance directive on file: Current visit: Yes Status: Acute Full Code Palliative care consult (11) Pulmonary hypertension: Current visit: Yes Status: Chronic Likely related to obstructive sleep apnea. The patient does not tolerate CPAP/BiPAP therapy. Volume status should be carefully monitored. F/u as outpatient with a sleep study if patient agrees to be more compliant with a CPAP Subjective Interval history since last seen: Transferred out of the ICU. Denies dizziness, complains of L-sided rib pain only when coughing, denies shortness of breath, nausea, vomiting. Exam Narrative Exam Narrative: General: A&Ox3, more alert/conversant; pale, still looks sick HEENT: EOMI, MMM Heart: RRR, NUVIA Lungs: clear diminished breath sounds B GI: abdomen soft, nontender, nondistended; + ileostomy and cholecystostomy drains Extremities: R foot dressed. +1 edema BLE's. Chronic venous stasis changes. Objective Objective Clinical Data: Abnormal lab results 03/17/18 03/17/18 03/17/18 Range/Units 06:45 10:15 10:15 RBC 3.91 L (4.50-6.00) m/cumm Hgb 9.3 L (13.5-17.5) g/dL Hct 30.0 L (40.0-50.0) % MCV 76.7 L (80-95) fL MCH 23.8 L (27.0-33.0) pg MCHC 31.0 L (32.0-36.0) g/dL RDW 21.6 H (11.8-14.1) % Plt Count 457 H (130-400) x1000/uL Absolute Neutrophils 7.85 H (1.2-6.7) k/cumm Absolute Monocytes 0.93 H (0.11-0.7) k/cumm VBG pH 7.29 L (7.32-7.43) VBG pCO2 51 H (34-47) mm/Hg VBG pO2 57 H (28-44) mm/Hg VBG O2 Saturation 90 H (70-80) % Chloride 108 H (98-107) mmol/L BUN 33 H (7-18) mg/dL Creatinine 2.09 H (0.70-1.30) mg/dL Glucose 162 H D (70-100) mg/dL Vital Signs Temperature 36.9 C 03/17/18 09:00 Temperature Source Temporal Artery Scan 03/17/18 09:00 Pulse 68 03/17/18 11:22 Pulse Rhythm Regular 03/14/18 08:50 Pulse 70 03/17/18 11:22 Respiratory Rate 17 03/17/18 09:58 Respiratory Effort Non-Labored 03/17/18 09:00 Respiratory Depth Normal 03/17/18 09:00 Respiratory Pattern Normal 03/17/18 09:00 Blood Pressure 159/86 H 03/17/18 11:22 Blood Pressure Mean 98 03/17/18 11:22 Blood Pressure Position Supine 03/17/18 09:00 Pulse Oximetry 96 03/17/18 11:22 Oxygen Delivery Method Room Air 03/17/18 09:00 Oxygen Flow Rate 0 03/17/18 09:00 Pain Level 7 03/17/18 09:30 Comment 03/14/18 10:58 Intake & Output 03/16/18 03/17/18 03/17/18 23:59 11:59 23:59 Intake Total 1740 / 2290 800 / 800 Output Total 4250 / 5525 1885 / 4010 2125 / 4010 Balance -2510 / -3235 -1085 / -3210 -2125 / -3210 Weight 104.3 kg Intake: IV 390 / 640 Oral 1350 / 1650 800 / 800 Output: Drainage 250 / 350 210 / 285 75 / 285 Right Upper Abdomen 250 / 350 210 / 285 75 / 285 Urine 3000 / 3950 375 / 1675 1300 / 1675 Stool 1000 / 1225 1300 / 2050 750 / 2050 Other: Urine Color Yellow Yellow Yellow Urine Appearance Clear Clear Clear Comment Downing in place draining large amounts of yellow urine with sediment Downing intact and draining yellow urine with sediment Laboratory Results WBC 10.41 k/cumm (4.4-10.8) 03/17/18 10:15 RBC 3.91 m/cumm (4.50-6.00) L 03/17/18 10:15 Hgb 9.3 g/dL (13.5-17.5) L 03/17/18 10:15 Hct 30.0 % (40.0-50.0) L 03/17/18 10:15 MCV 76.7 fL (80-95) L 03/17/18 10:15 MCH 23.8 pg (27.0-33.0) L 03/17/18 10:15 MCHC 31.0 g/dL (32.0-36.0) L 03/17/18 10:15 RDW 21.6 % (11.8-14.1) H 03/17/18 10:15 Plt Count 457 x1000/uL (130-400) H 03/17/18 10:15 MPV 9.5 fL (8.0-11.0) 03/17/18 10:15 Abs Immat Gran (auto) Cancelled 03/05/18 05:35 Immature Gran % 0.8 03/17/18 10:15 Neutrophils % 75.4 03/17/18 10:15 Lymphocytes % 11.5 03/17/18 10:15 Monocytes % 8.9 03/17/18 10:15 Eosinophils % 2.9 03/17/18 10:15 Basophils % 0.5 03/17/18 10:15 Absolute Neutrophils 7.85 k/cumm (1.2-6.7) H 03/17/18 10:15 Band Neutrophils 2.0 % 03/08/18 06:15 Absolute Lymphocytes 1.20 k/cumm (1.2-3.4) 03/17/18 10:15 Absolute Monocytes 0.93 k/cumm (0.11-0.7) H 03/17/18 10:15 Absolute Eosinophils 0.30 k/cumm (0.0-0.7) 03/17/18 10:15 Absolute Basophils 0.05 k/cumm (0.0-0.2) 03/17/18 10:15 Metamyelocytes 1.0 % 03/10/18 06:15 Myelocytes 2.0 % 03/10/18 06:15 Promyelocytes Cancelled 03/05/18 05:35 Nucleated RBCs Cancelled 03/05/18 05:35 Differential Comment Manual differential 03/10/18 06:15 Atypical Lymphocytes Cancelled 03/05/18 05:35 Other Cell Type Cancelled 03/05/18 05:35 RBC Morphology See below 03/10/18 06:15 Polychromasia Present 03/02/18 07:00 Hypochromasia 3+ 03/10/18 06:15 Poikilocytosis 3+ 03/10/18 06:15 Basophilic Stippling Cancelled 03/05/18 05:35 Anisocytosis 3+ 03/10/18 06:15 Microcytosis 3+ 03/10/18 06:15 Macrocytosis Cancelled 03/05/18 05:35 Spherocytes Cancelled 03/05/18 05:35 Target Cells Cancelled 03/05/18 05:35 Tear Drop Cells 2+ 03/01/18 09:38 Ovalocytes 2+ 03/02/18 07:00 Stomatocytes Cancelled 03/05/18 05:35 [place] Bodies Cancelled 03/05/18 05:35 Sathya Cells Cancelled 03/05/18 05:35 Acanthocytes (Spur) Cancelled 03/05/18 05:35 Schistocytes Cancelled 03/05/18 05:35 PT 9.6 sec (9.3-11.0) 03/05/18 13:12 INR 1.0 (0.9-1.1) 03/05/18 13:12 Sample Site Left radial 03/14/18 11:03 pCO2 40 mmHg (34-47) 03/14/18 11:03 pO2 64 mmHg (83-108) L 03/14/18 11:03 O2 Saturation 93 % (94-98) L 03/14/18 11:03 ABG pH 7.16 (7.35-7.45) L* 03/14/18 11:03 ABG HCO3 14 mmol/L (22-28) L 03/14/18 11:03 ABG Total CO2 14 mmol/L (22-29) L 03/14/18 11:03 ABG Base Excess -14.5 mmol/L (-3-3) L 03/14/18 11:03 VBG pH 7.29 (7.32-7.43) L 03/17/18 06:45 VBG pCO2 51 mm/Hg (34-47) H 03/17/18 06:45 VBG pO2 57 mm/Hg (28-44) H 03/17/18 06:45 VBG HCO3 25 mmol/L (22-28) 03/17/18 06:45 VBG Total CO2 24 mmol/L (22-29) 03/17/18 06:45 VBG O2 Saturation 90 % (70-80) H 03/17/18 06:45 VBG Base Excess -1.9 mmol/L (-3-3) 03/17/18 06:45 FiO2 21 % 03/14/18 11:03 Sodium 143 mmol/L (136-145) 03/17/18 10:15 Potassium 3.5 mmol/L (3.5-5.1) 03/17/18 10:15 Chloride 108 mmol/L (98-107) H 03/17/18 10:15 Carbon Dioxide 27.2 mmol/L (21.0-32.0) 03/17/18 10:15 Anion Gap 7.8 mmol/L (3-11) 03/17/18 10:15 BUN 33 mg/dL (7-18) H 03/17/18 10:15 Creatinine 2.09 mg/dL (0.70-1.30) H 03/17/18 10:15 Estimated GFR/1.73 m2 32.78 (mL/min/1.73m2) 03/17/18 10:15 Glucose 162 mg/dL (70-100) H D 03/17/18 10:15 Lactate 0.5 mmol/L (0.6-1.4) L 03/14/18 17:22 Calcium 8.6 mg/dL (8.5-10.1) 03/17/18 10:15 Magnesium 1.9 mg/dL (1.8-2.4) 03/17/18 10:15 Total Bilirubin 0.2 mg/dL (0.2-1.0) 03/01/18 09:38 Conjugated Bilirubin 0.08 mg/dL (0.00-0.20) 03/01/18 09:38 AST 3 U/L (15-37) L 03/01/18 09:38 ALT 13 U/L (12-78) 03/01/18 09:38 Alkaline Phosphatase 273 U/L (46-116) H 03/01/18 09:38 Creatine Kinase 15 U/L (39-308) L 03/08/18 21:20 C-Reactive Protein 2.76 mg/dL (0.0-0.3) H 03/16/18 06:38 Total Protein 7.1 g/dL (6.4-8.2) 03/01/18 09:38 Albumin 2.3 g/dL (3.4-5.0) L 03/01/18 09:38 TSH 0.61 uIU/mL (0.358-3.74) 03/02/18 07:00 Urine Color Yellow (Yellow) 03/14/18 12:00 Urine Clarity Cloudy 03/14/18 12:00 Urine pH 6.0 (5-8) 03/14/18 12:00 Ur Specific [place] 1.015 (1.005-1.025) 03/14/18 12:00 Urine Protein 100 mg/dL (Negative) H 03/14/18 12:00 Urine Ketones Negative mg/dL (Negative) 03/14/18 12:00 Urine Blood Trace-lysed (Negative) H 03/14/18 12:00 Urine Nitrite Negative (Negative) 03/14/18 12:00 Urine Bilirubin Negative (Negative) 03/14/18 12:00 Urine Urobilinogen 0.2 EU/dL (Up TO 0.2) 03/14/18 12:00 Ur Leukocyte Esterase Large (Negative) H 03/14/18 12:00 Urine RBC Not Applicable 03/14/18 12:00 Urine WBC >50 HPF (0-5) 03/14/18 12:00 Ur Epithelial Cells Not Applicable 03/14/18 12:00 Urine Crystals Not Applicable 03/14/18 12:00 Urine Bacteria Not Applicable 03/14/18 12:00 Urine Casts 3-5 coarse granular LPF (Negative) 03/04/18 14:20 Urine Mucus Not Applicable 03/14/18 12:00 Urine Other Moderate yeast (Negative) 03/04/18 14:20 Ur Culture Indicated? C&s done as ordered 03/14/18 12:00 Urine Glucose Negative mg/dL (Negative) 03/14/18 12:00 Vancomycin Trough 28.6 ug/mL (10.0-20.0) H* 03/14/18 13:20
--- NOTE | 2018-03-17 15:58 | CHAPLAIN ---
I visited Brendan this morning. He easily engaged in conversation. Last week he asked me to let Maldonado Ford, from [facility], know that he is here, and I let Brendan know that Maldonado sent me an email saying he would be visiting sometime today. Maldonado has know Brendan for several years and sometimes visit him at the [facility].
--- NOTE | 2018-03-17 16:20 | DI.RAD_ITS ---
SYMPTOM/DIAGNOSIS: F/U PNEUMONIA PORTABLE AP CHEST: When compared with the 03/14 examination, there has been evident clearing of the lungs. There is nothing to suggest a pleural effusion. The heart is top limits of normal in size. SUMMARY: Interval improvement is demonstrated when compared with a previous examination from 03/14/18.
--- NOTE | 2018-03-17 16:28 | DI.VRAD_ITS ---
EXAM: XR Chest, 1 View EXAM DATE/TIME: 03/17/2018 4:01 PM CLINICAL HISTORY: 57 years old, male; Condition or disease; Lung condition and disease; Pneumonia; Other: Unknown; Patient HX: F/u pna TECHNIQUE: XR of the chest, 1 view. COMPARISON: CR XR PORTABLE CHEST AP 03/14/2018 11:46 AM FINDINGS: Tubes, catheters and devices: There is a right-sided PICC line with its tip in the right atrium. There are cardiac leads which overlie the chest. Lungs: There is no evidence of an infiltrate or a pleural effusion. Pleural space: See above. Heart/Mediastinum: Unremarkable. No cardiomegaly. Bones/joints: The patient is status post old injury to the left clavicle. This is unchanged from the prior study. IMPRESSION: Right-sided PICC line in place. No evidence of an infiltrate or a pleural effusion. Dictated and Authenticated by: Ad Bolton MD. Ordering:LACEY Francois MD
--- NOTE | 2018-03-17 18:28 | PDOC.CMPRO ---
Care Management Progress Note S/O: Brendan remains in the ICU on steroid taper and IV ABX; he continues to be closely monitored. CM updated Isela of the [facility] and faxed updated clinicals as to Brendan's current clinical status. Isela reported having a private room available for Brendan when he is deemed medically ready for discharge. CM will continue to follow. A: 57 year old male admitted to [facility] 03/01/18 for Hyperglycemia, encephalopathy, suspected sepsis, pneumonia P: CM will continue to monitor clinical progress and support discharge planning considerations, Brendan will return to the [facility] level one for ongoing IV ABX, wound care, and ongoing PT/OT prior to transferring to LTC as the [facility] is also his residence for the past eight years or so. He will require follow up with Dr. Ashford. Brendan will transport via W/C Van coordinated by this remote mortgage underwriter.
[2018-03-17] MEDS: Normal Saline Flush 10 ML SYR 20 ML IVP (19:47)
[2018-03-17] MEDS: Nystatin POWDER 60 GM JAR TP (19:48)
--- NOTE | 2018-03-17 20:26 | NUR.NOTE ---
Nursing Note: Report from Renato Casas RN in ICU. Patient moved from ICU room 222 to Med/Surg room 214 via recliner at 2015
[2018-03-17] MEDS: VANCOMYCIN 750 MG in Normal Saline 250 ML 166.7 MG IVPB (21:42)
[2018-03-17] MEDS: Insulin Glargine 300 UNITS/3 ML PEN 45 UNITS SC (21:44)
[2018-03-18] MEDS: Melatonin 3 MG TAB 9 MG PO ×2 (00:50→23:50)
[2018-03-18] MEDS: risperiDONE 1 MG TAB 3 MG PO ×2 (00:50→21:59)
[2018-03-18] MEDS: traZODone 50 MG TAB PO ×2 (00:50→21:59)
[2018-03-18] MEDS: Heparin 5,000 UNITS/ML VIAL 5000 UNITS SC ×4 (00:52→23:50)
[2018-03-18 04:41] VITALS: BP 156/74; PULSE 74; RESP 18; TEMP 36.4; O2SAT 93
[2018-03-18] MEDS: Levothyroxine 75 MCG TAB 37.5 MCG PO (06:03)
[2018-03-18] MEDS: Hydrocortisone SOD SUC. 100 MG VIAL 25 MG IVP ×4 (06:27→21:58)
[2018-03-18] MEDS: Normal Saline Flush 10 ML SYR IVP ×5 (06:27→22:00)
[2018-03-18 07:22] LABS: Abs Immature Grans 0.09 k/cumm (0.0-0.09); Absolute Basophil Count 0.03 k/cumm (0.0-0.2); Absolute Eosinophil Count 0.15 k/cumm (0.0-0.7); Absolute Lymphocyte Count 1.03 k/cumm (1.2-3.4); Absolute Monocyte Count 0.53 k/cumm (0.11-0.7); Absolute Neutrophil Count 6.76 k/cumm (1.2-6.7); Basophils % 0.3; Eosinophils % 1.7; HCT 30.6 % (40.0-50.0); HGB 9.4 g/dL (13.5-17.5); Mean Corp. HGB Concentration 30.7 g/dL (32.0-36.0); Mean Corpuscular Hemoglobin 23.3 pg (27.0-33.0); Mean Corpuscular Volume 75.7 fL (80-95); Mean Platelet Volume 9.9 fL (8.0-11.0); Monocytes % 6.2; Neutrophils % 78.8; Platelet Count 451 x1000/uL (130-400); RBC 4.04 m/cumm (4.50-6.00); RBC Distribution Width 20.8 % (11.8-14.1); White Blood Cell Count 8.59 k/cumm (4.4-10.8)
[2018-03-18 07:29] LABS: Anion Gap 9.1 mmol/L (3-11); BUN 36 mg/dL (7-18); CO2 26.9 mmol/L (21.0-32.0); CREATININE 2.11 mg/dL (0.70-1.30); Calcium 8.6 mg/dL (8.5-10.1); Chloride 105 mmol/L (98-107); Estimated GFR 32.42 (mL/min/1.73m2); Glucose 229 mg/dL (70-100); Magnesium 1.9 mg/dL (1.8-2.4); Potassium 3.9 mmol/L (3.5-5.1); Sodium 141 mmol/L (136-145)
[2018-03-18 07:34] VITALS: BP 165/80; PULSE 49; RESP 14; TEMP 36; O2SAT 95
[2018-03-18] MEDS: Insulin Aspart 300 UNITS/3 ML PEN SC ×3 (08:11→22:31)
[2018-03-18] MEDS: hydrOXYzine HCL 25 MG TAB PO (09:23)
[2018-03-18] MEDS: Multivitamin TAB 1 TAB PO (09:24)
[2018-03-18] MEDS: Venlafaxine 37.5 MG CAPCR 75 MG PO (09:24)
[2018-03-18] MEDS: Magnesium Chloride 64 MG TABCR PO ×2 (09:24→20:21)
[2018-03-18] MEDS: Omeprazole 20 MG CAPCR PO (09:24)
[2018-03-18] MEDS: Ascorbic Acid 500 MG TAB PO ×2 (09:24→20:22)
[2018-03-18] MEDS: Lactobacillus Acidophilus CAP 1 CAP PO ×3 (09:25→20:21)
[2018-03-18] MEDS: Aspirin E.C. 81 MG TABEC PO ×2 (09:25→20:22)
[2018-03-18] MEDS: Cyanocobalamin 500 MCG TAB 1000 MCG PO (09:25)
[2018-03-18] MEDS: Terazosin 2 MG CAP 4 MG PO ×2 (09:25→20:21)
[2018-03-18] MEDS: amLODIPine 10 MG TAB PO (09:26)
[2018-03-18] MEDS: cloNIDine 0.1 MG TAB PO ×3 (09:26→20:22)
[2018-03-18] MEDS: carBAMazepine 100 MG CHEW PO ×3 (09:27→20:22)
[2018-03-18] MEDS: hydrALAZINE 10 MG TAB PO ×3 (09:27→20:22)
[2018-03-18] MEDS: Metoprolol CR 25 MG TABCR PO (09:27)
[2018-03-18] MEDS: Gabapentin 300 MG CAP PO ×3 (09:27→20:22)
[2018-03-18] MEDS: Ferrous Sulfate 325 MG TAB PO ×2 (09:27→20:22)
[2018-03-18] MEDS: Folic Acid 1 MG TAB PO (09:27)
[2018-03-18 09:39] VITALS: PULSE 70
[2018-03-18] MEDS: Furosemide 20 MG/2 ML VIAL IVP ×2 (09:59→15:25)
[2018-03-18] MEDS: Normal Saline Flush 10 ML SYR 20 ML IVP ×2 (10:00→20:22)
[2018-03-18] MEDS: Nystatin POWDER 60 GM JAR TP ×2 (10:01→20:35)
--- NOTE | 2018-03-18 10:23 | OT.INIE ---
Occupational Therapy Notes Inpatient Occupational Therapy Evaluation Date: 03/18/18 Referring Doctor:Priscila Canela MD OT Orders: Eval and Treat Precautions: Contact Precautions, Droplet Precautions, Fall Precautions PATIENT PROFILE/ADMITTING DIAGNOSIS: Pt is a 57 year old male who was admitted through the ER on 03/01/18 due to his diabetes, being lathargic and hyperglycemic. Pt was previously admitted to [facility] in January 2018. He had a decline in medical status and was recently in the ICU. He was seen for OT evaluation today and currently on Med Surg. Past Medical History: Diabetic neuropathy, diabetic foot ulcers, rheumatoid arthritis, osteoarthritis bilateral knees, sacral decubitus ulcer, chronic renal insufficiency, coronary artery disease, crohn's disease, s/p colectomy, anemia, urinary tract infection, dyslipidemia, hypoandrogenism, cholelithiasis, hypertension, bipolar Disorder, chronic back pain, lower extremity edema, obesity, diabetes mellitus, MRSA blood and urine. Current Functional Limitations: Decreased functional activity tolerance, decreased (I) in ADLs/IADLs. Pt reports that he is not currently at his baseline for ADLs. Social History/Home Situation: Pt resides at [facility]. He is currently Max (A) for ADLs but this has recently decline since November 2017. He reports that in November he was able to wash his own face (I), and help with ADL routines with moderate (A) throughout. He has occupational therapy at [facility]. Equipment owned/DME: [facility] SUBJECTIVE: He was agreeable to OT session. Pt was sitting on side of the bed eating his breakfast, he reports that he feels he is limited in ROM however states that he is feeling so much better than the last time I saw him. OBJECTIVE: General Observation: IV (R) UE, ruiz, ileostomy Mental Status: A&Ox3 Pain: no c/o pain ROM: RUE Shoulder flexion, elbow flexion unable to perform. L UE Shoulder flexion ~50*, elbow flexion able to perform in abducted position STRENGTH: RUE Unable to test shoulder flexion, elbow 3/5 carcass splitter 3/5 LUE Unable to test shoulder flexion, elbow 3/5, carcass splitter 3/5 BALANCE: Static sitting Good Dynamic Sitting Fair SPECIAL TESTS: Daily Activity Limitations [facility]? Daily Activity Inpatient Short Form: Raw score: 14 Standardized score: 33.39 CMS score: 59.67% CMS modifier: CK INFORMED CONSENT/EDUCATION: Pt instructed in purpose of OT Consult and plan of care. ASSESSMENT: Patient is a 57-year-old male referred to occupational therapy services with diagnosis of lathargic and hyperglycemic after being admitted through the ER on 03/01/18 due to his diabetes he recently had a decline in medical status and was in the ICU in setting of Diabetic neuropathy, diabetic foot ulcers, rheumatoid arthritis, osteoarthritis bilateral knees, sacral decubitus ulcer, chronic renal insufficiency, coronary artery disease, crohn's disease, s/p colectomy, anemia, urinary tract infection, dyslipidemia, hypoandrogenism, cholelithiasis, hypertension, bipolar Disorder, chronic back pain, lower extremity edema, obesity, diabetes mellitus, MRSA blood and urine. Patient presents with clinical signs and symptoms consistent with dx and decreased (I) in ADLs/IADLs, as demonstrated by the following impairment level findings: 1. Decreased (B) UE AROM 2. Decreased (B) UE strengthening 3. Decreased functional activity tolerance Impairments are contributing to the following functional limitations: 1. Decreased (I) in ADLs/IADLs 2. Decreased gross and fine motor skills for (B) UE 3. Decreased ability to perform functional mobility required for ADLs AMPAC score 14, CMS score 59.67%. OT recommends that pt return to [facility] when medically cleared per MD. Patient is assessed as a Moderate 82240 complexity based on the following: History: See Above Examination: See Above Presentation: Evolving Decision Making: AMPAC score 14, CMS score 59.67% GOALS Goals x1 week in hospital setting 1. Dressing- Pt will be able to don hospital gown with min (A) and min vc 2. Bathing- Pt will be able to (I) wash face, (B) UE and abdomen with min vc 3. Eating- Pt will be able to perform eating routine with min (A) for opening packages and (I) translation from plate to mouth PLAN OF CARE/TREATMENT PLAN: 1x/day, 5 days/ week x 1week Initiate Occupational Therapy Services for bathing, dressing, grooming, toileting, eating, transfer training. DISCHARGE RECOMMENDATIONS Return to the [facility] when medically cleared per MD. TREATMENT TIME/MINUTES/CODES 22 min 31637 (10:00) G Codes in the area of self- : washing oneself, toileting, dressing, eating and drinking, current status GO [id number] CK projected status GO [id number]. Discharge status (if discharging) GO [id number], Based on AMPAC score 14, CMS score 59.67% Suzanne Javier, OTR/L [facility]
--- NOTE | 2018-03-18 10:26 | OTIE_ITS ---
Occupational Therapy Notes Inpatient Occupational Therapy Evaluation Date: 03/18/18 Referring Doctor:Priscila Canela MD OT Orders: Eval and Treat Precautions: Contact Precautions, Droplet Precautions, Fall Precautions PATIENT PROFILE/ADMITTING DIAGNOSIS: Pt is a 57 year old male who was admitted through the ER on 03/01/18 due to his diabetes, being lathargic and hyperglycemic. Pt was previously admitted to [facility] in January 2018. He had a decline in medical status and was recently in the ICU. He was seen for OT evaluation today and currently on Med Surg. Past Medical History: Diabetic neuropathy, diabetic foot ulcers, rheumatoid arthritis, osteoarthritis bilateral knees, sacral decubitus ulcer, chronic renal insufficiency, coronary artery disease, crohn's disease, s/p colectomy, anemia, urinary tract infection, dyslipidemia, hypoandrogenism, cholelithiasis, hypertension, bipolar Disorder, chronic back pain, lower extremity edema, ob esity, diabetes mellitus, MRSA blood and urine. Current Functional Limitations: Decreased functional activity tolerance, decreased (I) in ADLs/IADLs. Pt reports that he is not currently at his baseline for ADLs. Social History/Home Situation: Pt resides at [facility]. He is currently Max (A) for ADLs but this has recently decline since November 2017. He reports that in November he was able to wash his own face (I), and help with ADL routines with moderate (A) throughout. He has occupational therapy at [facility]. Equipment owned/DME: [facility] SUBJECTIVE: He was agreeable to OT session. Pt was sitting on side of the bed eating his breakfast, he reports that he feels he is limited in ROM however states that he is feeling so much better than the last time I saw him. OBJECTIVE: General Observation: IV (R) UE, ruiz, ileostomy Mental Status: A&Ox3 Pain: no c/o pain ROM: RUE Shoulder flexion, elbow flexion unable to perform. L UE Shoulder flexion ~50*, elbow flexion able to perform in abducted position STRENGTH: RUE Unable to test shoulder flexion, elbow 3/5 fourchette sewer 3/5 LUE Unable to test shoulder flexion, elbow 3/5, fourchette sewer 3/5 BALANCE: Static sitting Good Dynamic Sitting Fair SPECIAL TESTS: Daily Activity Limitations [facility] ?[facility] clicks? Daily Activity Inpatient Short Form: Raw score: 14 Standardized score: 33.39 CMS score: 59.67% CMS modifier: CK INFORMED CONSENT/EDUCATION: Pt instructed in purpose of OT Consult and plan of care. ASSESSMENT: Patient is a 57-year-old male referred to occupational therapy services with diagnosis of lathargic and hyperglycemic after being admitted through the ER on 03/01/18 due to his diabetes he recently had a decline in medical status and was in the ICU in setting of Diabetic neuropathy, diabetic foot ulcers, rheumatoid arthritis, osteoarthritis bilateral knees, sacral decubitus ulcer, chronic renal insufficiency, coronary artery disease, crohn's disease, s/p colectomy, anemia, urinary tract infection, dyslipidemia, hypoandrogenism, cholelithiasis, hypertension, bipolar Disorder, chronic back pain, lower extremity edema, obesity, diabetes mellitus, MRSA blood and urine. Patient presents with clinical signs and symptoms consistent with dx and decreased (I) in ADLs/IADLs, as demonstrated by the following impairment level findings: 1. Decreased (B) UE AROM 2. Decreased (B) UE strengthening 3. Decreased functional activity tolerance Impairments are contributing to the following functional limitations: 1. Decreased (I) in ADLs/IADLs 2. Decreased gross and fine motor skills for (B) UE 3. Decreased ability to perform functional mobility required for ADLs AMPAC score 14, CMS score 59.67%. OT recommends that pt return to [facility] when medically cleared per MD. Patient is assessed as a Moderate 59016 complexity based on the following: History: See Above Examination: See Above Presentation: Evolving Decision Making: AMPAC score 14, CMS score 59.67% GOALS Goals x1 week in hospital setting 1. Dressing- Pt will be able to don hospital gown with min (A) and min vc 2. Bathing- Pt will be able to (I) wash face, (B) UE and abdomen with min vc 3. Eating- Pt will be able to perform eating routine with min (A) for opening packages and (I) translation from plate to mouth PLAN OF CARE/TREATMENT PLAN: 1x/day, 5 days/ week x 1week Initiate Occupational Therapy Services for bathing, dressing, grooming, toileting, eating, transfer training. DISCHARGE RECOMMENDATIONS Return to the [facility] when medically cleared per MD. TREATMENT TIME/MINUTES/CODES 22 min 70826 (10:00) G Codes in the area of self- : washing oneself, toileting, dressing, eating and drinking, current status GO G8987 CK projected status GO [id number]. Discharge status (if discharging) GO [id number], Based on AMPAC score 14, CMS score 59.67% Suzanne Javier, OTR/L [facility]
[2018-03-18 11:17] VITALS: BP 139/68; PULSE 60; RESP 12; TEMP 37.4; O2SAT 91
--- NOTE | 2018-03-18 11:54 | PT.INNT ---
Date of service: 03/18/18 Time of Service: 11:54 PT Notes 03/18/18 Patient refused this morning's PT session, then was not available at second attempt.
--- NOTE | 2018-03-18 16:25 | PT.INTREAT ---
Date of service: 03/18/18 Time of Service: 16:25 PT Notes Inpatient Physical Therapy Treatment Note [facility] Date: 03/18/18 PRECAUTIONS: Fall SUBJECTIVE: Brendan reports that he just woke up from a nap, that he is unwilling to sit at the edge of the bed or walk or sit in the chair at this time, as he is waiting for his lunch tray to arrive. OBJECTIVE: PAIN: No complaints of pain. BED MOBILITY/TRANSFERS/GAIT: Refused further gait and transfer training. Rolling L/R: I to R THEREX: Patient completed an open chain lower extremity strengthening program in a supine position, as per flow sheet. ASSESSMENT: Patient tolerated session as well without complaint. Patient would benefit from participating in gait and transfer training as well as continued participation in a strengthening program for improved mobility and improved activity tolerance. PLAN: Continue with PTs POC TREATMENT CODE/TIME: 15 minutes; ([id number])
[2018-03-18 16:41] VITALS: BP 154/81; PULSE 65; RESP 18; TEMP 36.4; O2SAT 97
--- NOTE | 2018-03-18 17:09 | PDOC.CMPRO ---
Care Management Progress Note S/O: Brendan was transferred to MED/SURG level of care and to the MED/SURG floor. He continues to make progress toward discharge with slow steroid taper and continued IV ABX; likely to now complete as soon as 03/21/18; anticipate updates from MD are forthcoming regarding discharge timing. Isela reported having a private room available for Brendan when he is deemed medically ready for discharge. CM will continue to follow. A: 57 year old male admitted to [facility] 03/01/18 for Hyperglycemia, encephalopathy, suspected sepsis, pneumonia P: CM will continue to monitor clinical progress and support discharge planning considerations, Brendan will return to the [facility] level one for ongoing IV ABX, wound care, and ongoing PT/OT prior to transferring to LTC as the [facility] is also his residence for the past eight years or so. He will require follow up with Dr. Ashford. Brendan will transport via W/C Van coordinated by this casualty underwriter.
[2018-03-18 19:40] VITALS: BP 150/78; PULSE 68; RESP 18; TEMP 36.6; O2SAT 98
--- NOTE | 2018-03-18 20:28 | W.PM.PROGNOT ---
Date of Service Date of service: 03/18/18 Time of Service: 16:30 Assessment and Plan (1) Adrenal insufficiency: Current visit: No Status: Acute Acute on chronic, likely precipitated by missed doses of prednisone, improving. Continue very slow steroid taper - I am doing it twice as slow as I would for any other patient at this point. Septic workup is negative with possible RUL and L base infiltrates, but these are likely actually atelectasis. To finish abx on 03/21. (2) Toxic metabolic encephalopathy: Current visit: Yes Status: Resolved Resolved; was due to acute on chronic adrenal insufficiency and metabolic acidosis. Continue to monitor (3) Metabolic acidosis: Current visit: Yes Status: Acute Multifactorial, due to 1. Adrenal insufficiency 2. Chronic kidney disease 3. Fluid overload Improving. Continue to diurese and treat adrenal insufficiency. Nearly resolved. (4) 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 2 diabetes mellitus: Current visit: Yes Status: Ruled-out Not confirmed by bone biopsy, as per my conversation with Dr Ashford. Non-healing diabetic foot ulcer with osteomyelitis right 5th metatarsal. now s/p debridement on 03/06 with resection of the 5th MP. Per Dr Ashford, 2 weeks of abx should be sufficient (end date 03/21/18) Cotninue Vancomycin and Ertapenem, per ID at [facility], for broader coverage in case of other / polymicrobial infection that is not present on current culture. Consider a CTA of the LE's to evaluate perfusion to legs. (5) Chronic cholecystitis: Current visit: Yes Status: Acute Cholecystostomy drain was not changed [place] [facility] [place] - per discussion with IR, there would not have been a benefit to it from the stand point of decreasing infection risk, as long as the drain is functioning well and continues to drain. Will need outpatient [facility] general surgery follow up for cholecystectomy. (6) HCAP (healthcare-associated pneumonia): Current visit: No Status: Resolved As above - infiltrates on repeat CXR are not convincingly pneumonia. Patient is S/p 5 days of therapy with Vancomycin and Pip-Tazo. Sputum cx with MRSA. Continue vancomycin/ertapenem. CXR with significant improvement yesterday. (7) Acute on chronic kidney failure: Current visit: No Status: Resolved Monitor Cr while diuresing (8) Hyperkalemia: Current visit: No Status: Resolved Resolved. (9) DVT prophylaxis: Current visit: No Status: Acute SC Heparin (10) Advance directive on file: Current visit: Yes Status: Acute Full Code Palliative care consult (11) Pulmonary hypertension: Current visit: Yes Status: Chronic Likely related to obstructive sleep apnea. The patient does not tolerate CPAP/BiPAP therapy. Volume status should be carefully monitored. F/u as outpatient with a sleep study if patient agrees to be more compliant with a CPAP Subjective Interval history since last seen: Denies dizziness, chest pain, shortness of breath, nausea, vomiting. Feels better. Asks for the ruiz to be removed. Exam Narrative Exam Narrative: General: A&Ox3, looks more like himself today, asking very appropriate questions about his care HEENT: EOMI, MMM Heart: RRR, NUVIA Lungs: clear diminished breath sounds B GI: abdomen soft, nontender, nondistended; + ileostomy and cholecystostomy drains Extremities: R foot dressed. Trace edema BLE's. Chronic venous stasis changes. Objective Objective Clinical Data: Abnormal lab results 03/18/18 03/18/18 Range/Units 06:30 06:30 RBC 4.04 L (4.50-6.00) m/cumm Hgb 9.4 L (13.5-17.5) g/dL Hct 30.6 L (40.0-50.0) % MCV 75.7 L (80-95) fL MCH 23.3 L (27.0-33.0) pg MCHC 30.7 L (32.0-36.0) g/dL RDW 20.8 H (11.8-14.1) % Plt Count 451 H (130-400) x1000/uL Absolute Neutrophils 6.76 H (1.2-6.7) k/cumm Absolute Lymphocytes 1.03 L (1.2-3.4) k/cumm BUN 36 H (7-18) mg/dL Creatinine 2.11 H (0.70-1.30) mg/dL Glucose 229 H (70-100) mg/dL Vital Signs Temperature 36.6 C 03/18/18 19:40 Temperature Source Tympanic 03/18/18 19:40 Pulse 68 03/18/18 19:40 Pulse Rhythm Regular 03/18/18 10:00 Pulse 65 03/17/18 16:00 Respiratory Rate 18 03/18/18 19:40 Respiratory Effort Non-Labored 03/18/18 10:00 Respiratory Depth Normal 03/18/18 10:00 Respiratory Pattern Normal 03/18/18 10:00 Blood Pressure 150/78 H 03/18/18 19:40 Blood Pressure Mean 98 03/17/18 11:22 Blood Pressure Position Supine 03/17/18 13:00 Pulse Oximetry 98 03/18/18 19:40 Oxygen Delivery Method Room Air 03/18/18 19:40 Oxygen Flow Rate 0 03/18/18 19:40 Pain Level 4 03/17/18 20:52 Comment 03/14/18 10:58 Intake & Output 03/17/18 03/18/18 03/18/18 23:59 11:59 23:59 Intake Total 1390 / 2490 750 / 750 Output Total 3675 / 5560 2230 / 3830 1600 / 3830 Balance -2285 / -3070 -1480 / -3080 -1600 / -3080 Weight 101.8 kg Intake: IV 370 / 370 Oral 1020 / 2120 750 / 750 Output: Drainage 200 / 410 280 / 280 Right Upper Abdomen 200 / 410 280 / 280 Urine 2300 / 2675 1350 / 2950 1600 / 2950 Stool 1175 / 2475 600 / 600 Other: Urine Color Yellow Yellow Yellow Urine Appearance Clear Clear Clear Urine Odor None Comment Ruiz intact and draining yellow urine with sediment Voiding Methods Indwelling Catheter Laboratory Results WBC 8.59 k/cumm (4.4-10.8) 03/18/18 06:30 RBC 4.04 m/cumm (4.50-6.00) L 03/18/18 06:30 Hgb 9.4 g/dL (13.5-17.5) L 03/18/18 06:30 Hct 30.6 % (40.0-50.0) L 03/18/18 06:30 MCV 75.7 fL (80-95) L 03/18/18 06:30 MCH 23.3 pg (27.0-33.0) L 03/18/18 06:30 MCHC 30.7 g/dL (32.0-36.0) L 03/18/18 06:30 RDW 20.8 % (11.8-14.1) H 03/18/18 06:30 Plt Count 451 x1000/uL (130-400) H 03/18/18 06:30 MPV 9.9 fL (8.0-11.0) 03/18/18 06:30 Abs Immat Gran (auto) Cancelled 03/05/18 05:35 Immature Gran % 1.0 03/18/18 06:30 Neutrophils % 78.8 03/18/18 06:30 Lymphocytes % 12.0 03/18/18 06:30 Monocytes % 6.2 03/18/18 06:30 Eosinophils % 1.7 03/18/18 06:30 Basophils % 0.3 03/18/18 06:30 Absolute Neutrophils 6.76 k/cumm (1.2-6.7) H 03/18/18 06:30 Band Neutrophils 2.0 % 03/08/18 06:15 Absolute Lymphocytes 1.03 k/cumm (1.2-3.4) L 03/18/18 06:30 Absolute Monocytes 0.53 k/cumm (0.11-0.7) 03/18/18 06:30 Absolute Eosinophils 0.15 k/cumm (0.0-0.7) 03/18/18 06:30 Absolute Basophils 0.03 k/cumm (0.0-0.2) 03/18/18 06:30 Metamyelocytes 1.0 % 03/10/18 06:15 Myelocytes 2.0 % 03/10/18 06:15 Promyelocytes Cancelled 03/05/18 05:35 Nucleated RBCs Cancelled 03/05/18 05:35 Differential Comment Manual differential 03/10/18 06:15 Atypical Lymphocytes Cancelled 03/05/18 05:35 Other Cell Type Cancelled 03/05/18 05:35 RBC Morphology See below 03/10/18 06:15 Polychromasia Present 03/02/18 07:00 Hypochromasia 3+ 03/10/18 06:15 Poikilocytosis 3+ 03/10/18 06:15 Basophilic Stippling Cancelled 03/05/18 05:35 Anisocytosis 3+ 03/10/18 06:15 Microcytosis 3+ 03/10/18 06:15 Macrocytosis Cancelled 03/05/18 05:35 Spherocytes Cancelled 03/05/18 05:35 Target Cells Cancelled 03/05/18 05:35 Tear Drop Cells 2+ 03/01/18 09:38 Ovalocytes 2+ 03/02/18 07:00 Stomatocytes Cancelled 03/05/18 05:35 [place] Bodies Cancelled 03/05/18 05:35 Sathya Cells Cancelled 03/05/18 05:35 Acanthocytes (Spur) Cancelled 03/05/18 05:35 Schistocytes Cancelled 03/05/18 05:35 PT 9.6 sec (9.3-11.0) 03/05/18 13:12 INR 1.0 (0.9-1.1) 03/05/18 13:12 Sample Site Left radial 03/14/18 11:03 pCO2 40 mmHg (34-47) 03/14/18 11:03 pO2 64 mmHg (83-108) L 03/14/18 11:03 O2 Saturation 93 % (94-98) L 03/14/18 11:03 ABG pH 7.16 (7.35-7.45) L* 03/14/18 11:03 ABG HCO3 14 mmol/L (22-28) L 03/14/18 11:03 ABG Total CO2 14 mmol/L (22-29) L 03/14/18 11:03 ABG Base Excess -14.5 mmol/L (-3-3) L 03/14/18 11:03 VBG pH 7.29 (7.32-7.43) L 03/17/18 06:45 VBG pCO2 51 mm/Hg (34-47) H 03/17/18 06:45 VBG pO2 57 mm/Hg (28-44) H 03/17/18 06:45 VBG HCO3 25 mmol/L (22-28) 03/17/18 06:45 VBG Total CO2 24 mmol/L (22-29) 03/17/18 06:45 VBG O2 Saturation 90 % (70-80) H 03/17/18 06:45 VBG Base Excess -1.9 mmol/L (-3-3) 03/17/18 06:45 FiO2 21 % 03/14/18 11:03 Sodium 141 mmol/L (136-145) 03/18/18 06:30 Potassium 3.9 mmol/L (3.5-5.1) 03/18/18 06:30 Chloride 105 mmol/L (98-107) 03/18/18 06:30 Carbon Dioxide 26.9 mmol/L (21.0-32.0) 03/18/18 06:30 Anion Gap 9.1 mmol/L (3-11) 03/18/18 06:30 BUN 36 mg/dL (7-18) H 03/18/18 06:30 Creatinine 2.11 mg/dL (0.70-1.30) H 03/18/18 06:30 Estimated GFR/1.73 m2 32.42 (mL/min/1.73m2) 03/18/18 06:30 Glucose 229 mg/dL (70-100) H 03/18/18 06:30 Lactate 0.5 mmol/L (0.6-1.4) L 03/14/18 17:22 Calcium 8.6 mg/dL (8.5-10.1) 03/18/18 06:30 Magnesium 1.9 mg/dL (1.8-2.4) 03/18/18 06:30 Total Bilirubin 0.2 mg/dL (0.2-1.0) 03/01/18 09:38 Conjugated Bilirubin 0.08 mg/dL (0.00-0.20) 03/01/18 09:38 AST 3 U/L (15-37) L 03/01/18 09:38 ALT 13 U/L (12-78) 03/01/18 09:38 Alkaline Phosphatase 273 U/L (46-116) H 03/01/18 09:38 Creatine Kinase 15 U/L (39-308) L 03/08/18 21:20 C-Reactive Protein 2.76 mg/dL (0.0-0.3) H 03/16/18 06:38 Total Protein 7.1 g/dL (6.4-8.2) 03/01/18 09:38 Albumin 2.3 g/dL (3.4-5.0) L 03/01/18 09:38 TSH 0.61 uIU/mL (0.358-3.74) 03/02/18 07:00 Urine Color Yellow (Yellow) 03/14/18 12:00 Urine Clarity Cloudy 03/14/18 12:00 Urine pH 6.0 (5-8) 03/14/18 12:00 Ur Specific [place] 1.015 (1.005-1.025) 03/14/18 12:00 Urine Protein 100 mg/dL (Negative) H 03/14/18 12:00 Urine Ketones Negative mg/dL (Negative) 03/14/18 12:00 Urine Blood Trace-lysed (Negative) H 03/14/18 12:00 Urine Nitrite Negative (Negative) 03/14/18 12:00 Urine Bilirubin Negative (Negative) 03/14/18 12:00 Urine Urobilinogen 0.2 EU/dL (Up TO 0.2) 03/14/18 12:00 Ur Leukocyte Esterase Large (Negative) H 03/14/18 12:00 Urine RBC Not Applicable 03/14/18 12:00 Urine WBC >50 HPF (0-5) 03/14/18 12:00 Ur Epithelial Cells Not Applicable 03/14/18 12:00 Urine Crystals Not Applicable 03/14/18 12:00 Urine Bacteria Not Applicable 03/14/18 12:00 Urine Casts 3-5 coarse granular LPF (Negative) 03/04/18 14:20 Urine Mucus Not Applicable 03/14/18 12:00 Urine Other Moderate yeast (Negative) 03/04/18 14:20 Ur Culture Indicated? C&s done as ordered 03/14/18 12:00 Urine Glucose Negative mg/dL (Negative) 03/14/18 12:00 Vancomycin Trough 28.6 ug/mL (10.0-20.0) H* 03/14/18 13:20
[2018-03-18 22:20] LABS: Vancomycin, Trough 25.4 ug/mL (10.0-20.0)
[2018-03-18] MEDS: Insulin Glargine 300 UNITS/3 ML PEN 45 UNITS SC (22:32)
[2018-03-19 00:25] VITALS: BP 174/84; PULSE 66; RESP 18; TEMP 36.4; O2SAT 97
--- NOTE | 2018-03-19 01:52 | NUR.NOTE ---
Nursing Note: Pt vanco through level result was 25.4. Scheduled Vancomycin IV at 22:00 hrs. not given per charge manager order. Continue to monitor and no unusual changes noted on pt. Call lights at reach.
[2018-03-19] MEDS: Hydrocortisone SOD SUC. 100 MG VIAL 25 MG IVP ×3 (03:11→18:36)
[2018-03-19] MEDS: Normal Saline Flush 10 ML SYR IVP ×4 (03:12→18:37)
[2018-03-19] MEDS: Levothyroxine 75 MCG TAB 37.5 MCG PO (05:15)
[2018-03-19 08:00] VITALS: PULSE 56; RESP 20; TEMP 36.7; O2SAT 95
[2018-03-19 09:15] LABS: Abs Immature Grans 0.12 k/cumm (0.0-0.09); Absolute Basophil Count 0.05 k/cumm (0.0-0.2); Absolute Eosinophil Count 0.39 k/cumm (0.0-0.7); Absolute Lymphocyte Count 1.01 k/cumm (1.2-3.4); Absolute Monocyte Count 0.62 k/cumm (0.11-0.7); Absolute Neutrophil Count 10.11 k/cumm (1.2-6.7); Basophils % 0.4; Eosinophils % 3.2; HGB 9.8 g/dL (13.5-17.5); Lymphocytes % 8.2; Mean Corp. HGB Concentration 31.6 g/dL (32.0-36.0); Mean Corpuscular Hemoglobin 23.7 pg (27.0-33.0); Mean Corpuscular Volume 74.9 fL (80-95); Mean Platelet Volume 9.6 fL (8.0-11.0); Neutrophils % 82.2; Platelet Count 448 x1000/uL (130-400); RBC 4.14 m/cumm (4.50-6.00); RBC Distribution Width 20.2 % (11.8-14.1)
[2018-03-19 09:23] LABS: Anion Gap 7.1 mmol/L (3-11); BUN 43 mg/dL (7-18); CO2 26.9 mmol/L (21.0-32.0); Calcium 8.8 mg/dL (8.5-10.1); Chloride 103 mmol/L (98-107); Estimated GFR 29.35 (mL/min/1.73m2); Glucose 237 mg/dL (70-100); Magnesium 1.8 mg/dL (1.8-2.4); Potassium 4.4 mmol/L (3.5-5.1); Sodium 137 mmol/L (136-145)
[2018-03-19] MEDS: Insulin Aspart 300 UNITS/3 ML PEN SC ×4 (09:30→21:26)
[2018-03-19] MEDS: Heparin 5,000 UNITS/ML VIAL 5000 UNITS SC ×3 (09:30→23:53)
[2018-03-19 09:34] LABS: Vancomycin, Trough 23.4 ug/mL (10.0-20.0)
[2018-03-19] MEDS: Normal Saline Flush 10 ML SYR 20 ML IVP ×2 (09:34→19:52)
[2018-03-19] MEDS: Furosemide 20 MG/2 ML VIAL IVP ×2 (09:34→15:21)
[2018-03-19] MEDS: Magnesium Chloride 64 MG TABCR PO ×2 (09:35→19:50)
[2018-03-19] MEDS: Gabapentin 300 MG CAP PO ×3 (09:35→19:50)
[2018-03-19] MEDS: Terazosin 2 MG CAP 4 MG PO ×2 (09:35→19:52)
[2018-03-19] MEDS: Metoprolol CR 25 MG TABCR PO (09:36)
[2018-03-19] MEDS: Venlafaxine 37.5 MG CAPCR 75 MG PO (09:36)
[2018-03-19] MEDS: Ascorbic Acid 500 MG TAB PO ×2 (09:36→19:51)
[2018-03-19] MEDS: Folic Acid 1 MG TAB PO (09:36)
[2018-03-19] MEDS: Ferrous Sulfate 325 MG TAB PO ×2 (09:37→19:51)
[2018-03-19] MEDS: Aspirin E.C. 81 MG TABEC PO ×2 (09:37→19:52)
[2018-03-19] MEDS: cloNIDine 0.1 MG TAB PO ×3 (09:37→19:51)
[2018-03-19] MEDS: Omeprazole 20 MG CAPCR PO (09:38)
[2018-03-19] MEDS: Multivitamin TAB 1 TAB PO (09:38)
[2018-03-19] MEDS: Lactobacillus Acidophilus CAP 1 CAP PO ×3 (09:38→19:52)
[2018-03-19] MEDS: carBAMazepine 100 MG CHEW PO ×3 (09:38→19:51)
[2018-03-19] MEDS: Cyanocobalamin 500 MCG TAB 1000 MCG PO (09:38)
[2018-03-19] MEDS: amLODIPine 10 MG TAB PO (09:39)
[2018-03-19] MEDS: hydrALAZINE 10 MG TAB PO ×3 (09:39→19:51)
[2018-03-19] MEDS: Nystatin POWDER 60 GM JAR TP ×2 (09:39→19:53)
[2018-03-19 09:59] VITALS: BP 146/87
--- NOTE | 2018-03-19 10:16 | OT.INTREAT ---
Date of service: 03/19/18 Time of Service: 08:30 Occupational Therapy Notes Occupational Therapy Inpatient Treatment Note Date: 03/19/18 PRECAUTIONS: Contact and droplet precautions, fall risk SUBJECTIVE: Pt was lying in bed, he was alert and oriented. He was agreeable to OT session. Very pleasant and receptive to education and training. OBJECTIVE: PAIN:no c/o pain FUNCTIONAL MOBILITY Rolling L/R: S Supine-sit: S Sit-supine: S Sit-stand: S, FWW Stand-sit: S, FWW BATHING: Upper Body: (I) washing hands and face TOILETING: Device: urinal Assist: (I) EATING: (I) putting Mrs. DASH and sugar on food items, Pt demonstrated increased grasp and release with movement of containers on tray. He was able to open item containers with min (A). Max (A) with cutting food although pt attempted with noted decrease strength in (L) UE. With min (A) for top of straw pt was able to (I) pull the straw out of the package and place into container. Pt demonstrated increase trunk control and fine motor manipulation for smaller containers on tray. Pt was unable to perform pouring of creamer although pt agrees that he will continue to work towards this. ASSESSMENT: Pt was very receptive to education and training. He demonstrated increased (I) with eating routine and fine motor control during ADLs. He still presents with increased weakness in (B) hands. Pt would benefit from skilled OT intervention for progression of (I) in eating routine and (B) UE strengthening. PLAN: Progression of fine motor control during eating routines Progression of (I) for UE bathing routine. TREATMENT CODES/TIME: [id number], 33 minutes (08:30) [facility]
[2018-03-19 11:35] VITALS: BP 137/69; PULSE 61; RESP 20; TEMP 37.3; O2SAT 93
--- NOTE | 2018-03-19 12:43 | PT.INTREAT ---
Date of service: 03/19/18 Time of Service: 12:43 PT Notes Inpatient Physical Therapy Treatment Note [facility] Date: 03/19/18 PRECAUTIONS: Fall, WBAT R, post-op shoe R SUBJECTIVE: Brendan reports that he did not sleep well last night although is agreeable to participating in PT and sitting up in his recliner chair this morning OBJECTIVE: PAIN: No complaints of pain BED MOBILITY/TRANSFERS Supine-sit: SBA Sit-stand: SBA Stand-sit: SBA Bed-Chair: SBA GAIT Assistive Device: FWW Weight bearing: WBAT R Assist: SBA Distance: 3 side steps +5' THEREX: Patient completed a lower extremity strengthening program, in a seated position, as per flow sheet. ASSESSMENT: Patient tolerated session well without complaint. In the afternoon patient was too tired to perform any transfers or gait, performing ther ex program only. Patient would benefit from continued gait and transfer training as well as strengthening for improved mobility as well as improved activity tolerance. PLAN: Continue with PTs POC TREATMENT CODE/TIME: Session 1: 25 minutes; ([id number]) Session 2: 10 minutes; ([id number])
[2018-03-19 16:05] VITALS: BP 118/69; PULSE 63; RESP 18; TEMP 37.1; O2SAT 97
--- NOTE | 2018-03-19 17:24 | CMPROGNOTE_ITS ---
Care Management Progress Note S/O: Brendan was reviewed at interdisciplinary rounds meeting. Per MD, Brendan will be discharge ready no sooner than 03/23/18 and will continue slow steroid taper after discharge. CM continues to follow and update [facility] of discharge planning considerations. A: 57 year old male [facility] for Hyperglycemia, encephalopathy, suspected sepsis, pneumonia P: CM will continue to monitor clinical progress and support discharge planning considerations, Brendan will return to the [facility], [facility], prior to transferring to LTC as the [facility] is also his residence for the past eight years or so. He will require follow up with Dr. Ashford. Brendan will transport via W/C Van coordinated by this senior writer.
--- NOTE | 2018-03-19 17:48 | CHAPLAIN ---
I visited with Brendan this morning. He said he may be discharged on Friday. He was sitting in his chair, mostly napping, but woke up when I walked in and engaged in conversation.
--- NOTE | 2018-03-19 19:23 | PGE_ITS ---
Date of Service Date of service: 03/19/18 Time of Service: 17:20 Assessment and Plan (1) Adrenal insufficiency: Current visit: No Status: Acute Acute on chronic, likely precipitated by missed doses of prednisone, improving. Continue very slow steroid taper. When returns to nursing facility, the steroid taper should be very protracted. Septic workup is negative with possible RUL and L base infiltrates, but these are likely actually atelectasis. To finish abx on 03/21. (2) Toxic metabolic encephalopathy: Current visit: Yes Status: Resolved Resolved; was due to acute on chronic adrenal insufficiency and metabolic acidosis. Continue to monitor (3) Metabolic acidosis: Current visit: Yes Status: Acute Multifactorial, due to 1. Adrenal insufficiency 2. Chronic kidney disease 3. Fluid overload Improving. Continue to diurese and treat adrenal insufficiency. Nearly resolved. (4) 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 2 diabetes mellitus: Current visit: Yes Status: Ruled-out Not confirmed by bone biopsy, as per my conversation with Dr Ashford. Non-healing diabetic foot ulcer with osteomyelitis right 5th metatarsal. Now s/p debridement on 03/06 with resection of the 5th MP. Per Dr Ashford, 2 weeks of abx should be sufficient (end date 03/21/18) Cotninue Vancomycin and Ertapenem, per ID at [facility], for broader coverage in case of other / polymicrobial infection that is not present on current culture. Consider a CTA of the LE's to evaluate perfusion to legs on outpatient bases (vs SUSANNA). (5) Chronic cholecystitis: Current visit: Yes Status: Acute Cholecystostomy drain was not changed at [facility] on 03/05/17 - per discussion with IR, there would not have been a benefit to it from the stand point of decreasing infection risk, as long as the drain is functioning well and continues to drain. Will need outpatient [facility] general surgery follow up for cholecystectomy. (6) HCAP (healthcare-associated pneumonia): Current visit: No Status: Resolved As above - infiltrates on repeat CXR are not convincingly pneumonia. Patient is S/p 5 days of therapy with Vancomycin and Pip-Tazo. Sputum cx with MRSA. Continue vancomycin/ertapenem. CXR with significant improvement. (7) Acute on chronic kidney failure: Current visit: No Status: Resolved Monitor Cr while diuresing (8) Hyperkalemia: Current visit: No Status: Resolved Resolved. (9) DVT prophylaxis: Current visit: No Status: Acute SC Heparin (10) Advance directive on file: Current visit: Yes Status: Acute Full Code Palliative care consult (11) Pulmonary hypertension: Current visit: Yes Status: Chronic Likely related to obstructive sleep apnea. The patient does not tolerate CPAP/BiPAP therapy. Volume status should be carefully monitored. F/u as outpatient with a sleep study if patient agrees to be more compliant with a CPAP Subjective Interval history since last seen: Complains of frequent urination, urinating a small amount every time without dysuria, ever since the ruiz was taken out. Otherwise, he is doing pretty good. Denies dizziness, chest pain, shortness of breath, nausea, vomiting. Exam Narrative Exam Narrative: General: A&Ox3, at baseline, asking very appropriate questions about his care HEENT: EOMI, MMM Heart: RRR, NUVIA Lungs: clear diminished breath sounds B GI: abdomen soft, nontender, nondistended; + ileostomy and cholecystostomy drains Extremities: R foot dressed. Trace edema BLE's - best I've ever seen it. Chronic venous stasis changes. Objective Objective Clinical Data: Abnormal lab results 03/18/18 03/19/18 03/19/18 Range/Units 21:00 08:45 08:45 WBC 12.30 H D (4.4-10.8) k/cumm RBC 4.14 L (4.50-6.00) m/cumm Hgb 9.8 L (13.5-17.5) g/dL Hct 31.0 L (40.0-50.0) % MCV 74.9 L (80-95) fL MCH 23.7 L (27.0-33.0) pg MCHC 31.6 L (32.0-36.0) g/dL RDW 20.2 H (11.8-14.1) % Plt Count 448 H (130-400) x1000/uL Absolute Neutrophils 10.11 H (1.2-6.7) k/cumm Absolute Lymphocytes 1.01 L (1.2-3.4) k/cumm BUN 43 H (7-18) mg/dL Creatinine 2.30 H (0.70-1.30) mg/dL Glucose 237 H (70-100) mg/dL Vancomycin Trough 25.4 H* (10.0-20.0) ug/mL 03/19/18 Range/Units 08:45 WBC (4.4-10.8) k/cumm RBC (4.50-6.00) m/cumm Hgb (13.5-17.5) g/dL Hct (40.0-50.0) % MCV (80-95) fL MCH (27.0-33.0) pg MCHC (32.0-36.0) g/dL RDW (11.8-14.1) % Plt Count (130-400) x1000/uL Absolute Neutrophils (1.2-6.7) k/cumm Absolute Lymphocytes (1.2-3.4) k/cumm BUN (7-18) mg/dL Creatinine (0.70-1.30) mg/dL Glucose (70-100) mg/dL Vancomycin Trough 23.4 H* (10.0-20.0) ug/mL Vital Signs Temperature 37.1 C 03/19/18 16:05 Temperature Source Tympanic 03/19/18 16:05 Pulse 63 03/19/18 16:05 Pulse Rhythm Regular 03/19/18 08:20 Pulse 65 03/17/18 16:00 Respiratory Rate 18 03/19/18 16:05 Respiratory Effort Non-Labored 03/19/18 08:20 Respiratory Depth Normal 03/19/18 08:20 Respiratory Pattern Normal 03/19/18 08:20 Blood Pressure 118/69 03/19/18 16:05 Blood Pressure Mean 98 03/17/18 11:22 Blood Pressure Position Supine 03/17/18 13:00 Pulse Oximetry 97 03/19/18 16:05 Oxygen Delivery Method Room Air 03/19/18 16:05 Oxygen Flow Rate 0 03/19/18 16:05 Pain Level 0 03/19/18 16:05 Comment 03/14/18 10:58 Intake & Output 03/18/18 03/19/18 03/19/18 23:59 11:59 23:59 Intake Total 340 / 1090 Output Total 1875 / 4105 1999 / 2350 350 / 2350 Balance -1535 / -3015 -1966 / -7 -350 / -231 Weight 101.1 kg Intake: IV 100 / 100 33 / 33 Oral 240 / 990 Output: Drainage 100 / 380 225 / 225 Right Upper Abdomen 100 / 380 225 / 225 Urine 1775 / 3125 525 / 525 Stool 1250 / 1600 350 / 1600 Other: Urine Color Pale Yellow Yellow Urine Appearance Clear Clear Urine Odor None Normal Voiding Methods Urinal Urinal Laboratory Results WBC 12.30 k/cumm (4.4-10.8) H D 03/19/18 08:45 RBC 4.14 m/cumm (4.50-6.00) L 03/19/18 08:45 Hgb 9.8 g/dL (13.5-17.5) L 03/19/18 08:45 Hct 31.0 % (40.0-50.0) L 03/19/18 08:45 MCV 74.9 fL (80-95) L 03/19/18 08:45 MCH 23.7 pg (27.0-33.0) L 03/19/18 08:45 MCHC 31.6 g/dL (32.0-36.0) L 03/19/18 08:45 RDW 20.2 % (11.8-14.1) H 03/19/18 08:45 Plt Count 448 x1000/uL (130-400) H 03/19/18 08:45 MPV 9.6 fL (8.0-11.0) 03/19/18 08:45 Abs Immat Gran (auto) Cancelled 03/05/18 05:35 Immature Gran % 1.0 03/19/18 08:45 Neutrophils % 82.2 03/19/18 08:45 Lymphocytes % 8.2 03/19/18 08:45 Monocytes % 5.0 03/19/18 08:45 Eosinophils % 3.2 03/19/18 08:45 Basophils % 0.4 03/19/18 08:45 Absolute Neutrophils 10.11 k/cumm (1.2-6.7) H 03/19/18 08:45 Band Neutrophils 2.0 % 03/08/18 06:15 Absolute Lymphocytes 1.01 k/cumm (1.2-3.4) L 03/19/18 08:45 Absolute Monocytes 0.62 k/cumm (0.11-0.7) 03/19/18 08:45 Absolute Eosinophils 0.39 k/cumm (0.0-0.7) 03/19/18 08:45 Absolute Basophils 0.05 k/cumm (0.0-0.2) 03/19/18 08:45 Metamyelocytes 1.0 % 03/10/18 06:15 Myelocytes 2.0 % 03/10/18 06:15 Promyelocytes Cancelled 03/05/18 05:35 Nucleated RBCs Cancelled 03/05/18 05:35 Differential Comment Manual differential 03/10/18 06:15 Atypical Lymphocytes Cancelled 03/05/18 05:35 Other Cell Type Cancelled 03/05/18 05:35 RBC Morphology See below 03/10/18 06:15 Polychromasia Present 03/02/18 07:00 Hypochromasia 3+ 03/10/18 06:15 Poikilocytosis 3+ 03/10/18 06:15 Basophilic Stippling Cancelled 03/05/18 05:35 Anisocytosis 3+ 03/10/18 06:15 Microcytosis 3+ 03/10/18 06:15 Macrocytosis Cancelled 03/05/18 05:35 Spherocytes Cancelled 03/05/18 05:35 Target Cells Cancelled 03/05/18 05:35 Tear Drop Cells 2+ 03/01/18 09:38 Ovalocytes 2+ 03/02/18 07:00 Stomatocytes Cancelled 03/05/18 05:35 [place] Bodies Cancelled 03/05/18 05:35 Christine Cells Cancelled 03/05/18 05:35 Acanthocytes (Spur) Cancelled 03/05/18 05:35 Schistocytes Cancelled 03/05/18 05:35 PT 9.6 sec (9.3-11.0) 03/05/18 13:12 INR 1.0 (0.9-1.1) 03/05/18 13:12 Sample Site Left radial 03/14/18 11:03 pCO2 40 mmHg (34-47) 03/14/18 11:03 pO2 64 mmHg (83-108) L 03/14/18 11:03 O2 Saturation 93 % (94-98) L 03/14/18 11:03 ABG pH 7.16 (7.35-7.45) L* 03/14/18 11:03 ABG HCO3 14 mmol/L (22-28) L 03/14/18 11:03 ABG Total CO2 14 mmol/L (22-29) L 03/14/18 11:03 ABG Base Excess -14.5 mmol/L (-3-3) L 03/14/18 11:03 VBG pH 7.29 (7.32-7.43) L 03/17/18 06:45 VBG pCO2 51 mm/Hg (34-47) H 03/17/18 06:45 VBG pO2 57 mm/Hg (28-44) H 03/17/18 06:45 VBG HCO3 25 mmol/L (22-28) 03/17/18 06:45 VBG Total CO2 24 mmol/L (22-29) 03/17/18 06:45 VBG O2 Saturation 90 % (70-80) H 03/17/18 06:45 VBG Base Excess -1.9 mmol/L (-3-3) 03/17/18 06:45 FiO2 21 % 03/14/18 11:03 Sodium 137 mmol/L (136-145) 03/19/18 08:45 Potassium 4.4 mmol/L (3.5-5.1) 03/19/18 08:45 Chloride 103 mmol/L (98-107) 03/19/18 08:45 Carbon Dioxide 26.9 mmol/L (21.0-32.0) 03/19/18 08:45 Anion Gap 7.1 mmol/L (3-11) 03/19/18 08:45 BUN 43 mg/dL (7-18) H 03/19/18 08:45 Creatinine 2.30 mg/dL (0.70-1.30) H 03/19/18 08:45 Estimated GFR/1.73 m2 29.35 (mL/min/1.73m2) 03/19/18 08:45 Glucose 237 mg/dL (70-100) H 03/19/18 08:45 Lactate 0.5 mmol/L (0.6-1.4) L 03/14/18 17:22 Calcium 8.8 mg/dL (8.5-10.1) 03/19/18 08:45 Magnesium 1.8 mg/dL (1.8-2.4) 03/19/18 08:45 Total Bilirubin 0.2 mg/dL (0.2-1.0) 03/01/18 09:38 Conjugated Bilirubin 0.08 mg/dL (0.00-0.20) 03/01/18 09:38 AST 3 U/L (15-37) L 03/01/18 09:38 ALT 13 U/L (12-78) 03/01/18 09:38 Alkaline Phosphatase 273 U/L (46-116) H 03/01/18 09:38 Creatine Kinase 15 U/L (39-308) L 03/08/18 21:20 C-Reactive Protein 2.76 mg/dL (0.0-0.3) H 03/16/18 06:38 Total Protein 7.1 g/dL (6.4-8.2) 03/01/18 09:38 Albumin 2.3 g/dL (3.4-5.0) L 03/01/18 09:38 TSH 0.61 uIU/mL (0.358-3.74) 03/02/18 07:00 Urine Color Yellow (Yellow) 03/14/18 12:00 Urine Clarity Cloudy 03/14/18 12:00 Urine pH 6.0 (5-8) 03/14/18 12:00 Ur Specific [place] 1.015 (1.005-1.025) 03/14/18 12:00 Urine Protein 100 mg/dL (Negative) H 03/14/18 12:00 Urine Ketones Negative mg/dL (Negative) 03/14/18 12:00 Urine Blood Trace-lysed (Negative) H 03/14/18 12:00 Urine Nitrite Negative (Negative) 03/14/18 12:00 Urine Bilirubin Negative (Negative) 03/14/18 12:00 Urine Urobilinogen 0.2 EU/dL (Up TO 0.2) 03/14/18 12:00 Ur Leukocyte Esterase Large (Negative) H 03/14/18 12:00 Urine RBC Not Applicable 03/14/18 12:00 Urine WBC >50 HPF (0-5) 03/14/18 12:00 Ur Epithelial Cells Not Applicable 03/14/18 12:00 Urine Crystals Not Applicable 03/14/18 12:00 Urine Bacteria Not Applicable 03/14/18 12:00 Urine Casts 3-5 coarse granular LPF (Negative) 03/04/18 14:20 Urine Mucus Not Applicable 03/14/18 12:00 Urine Other Moderate yeast (Negative) 03/04/18 14:20 Ur Culture Indicated? C&s done as ordered 03/14/18 12:00 Urine Glucose Negative mg/dL (Negative) 03/14/18 12:00 Vancomycin Trough 23.4 ug/mL (10.0-20.0) H* 03/19/18 08:45
[2018-03-19 20:15] VITALS: BP 159/75; PULSE 65; RESP 20; TEMP 36.5; O2SAT 92
[2018-03-19] MEDS: risperiDONE 1 MG TAB 3 MG PO (21:25)
[2018-03-19] MEDS: traZODone 50 MG TAB PO (21:25)
[2018-03-19] MEDS: Insulin Glargine 300 UNITS/3 ML PEN 55 UNITS SC (21:28)
[2018-03-19 21:31] LABS: Bilirubin Negative (Negative); Blood Negative (Negative); Clarity Clear; Glucose Negative (Negative); Ketones Negative (Negative); Leukocyte Esterase Negative (Negative); Nitrite Negative (Negative); Urobilinogen 0.2 EU/dL (Up TO 0.2); pH 5.5 (5-8)
[2018-03-19] MEDS: Melatonin 3 MG TAB 9 MG PO (23:53)
[2018-03-20 00:33] VITALS: BP 148/75; PULSE 67; RESP 20; TEMP 37.7; O2SAT 96
[2018-03-20] MEDS: Hydrocortisone SOD SUC. 100 MG VIAL 25 MG IVP (01:43)
[2018-03-20] MEDS: Normal Saline Flush 10 ML SYR IVP ×2 (01:44→11:34)
[2018-03-20] MEDS: Levothyroxine 75 MCG TAB 37.5 MCG PO (05:43)
[2018-03-20 07:26] LABS: Abs Immature Grans 0.12 k/cumm (0.0-0.09); Absolute Basophil Count 0.04 k/cumm (0.0-0.2); Basophils % 0.3; Eosinophils % 2.7; HCT 31.1 % (40.0-50.0); HGB 9.7 g/dL (13.5-17.5); Immature Grans % 0.9; Lymphocytes % 7.5; Mean Corp. HGB Concentration 31.2 g/dL (32.0-36.0); Mean Corpuscular Hemoglobin 23.6 pg (27.0-33.0); Mean Corpuscular Volume 75.7 fL (80-95); Mean Platelet Volume 9.7 fL (8.0-11.0); Monocytes % 4.3; Neutrophils % 84.3; Platelet Count 413 x1000/uL (130-400); RBC 4.11 m/cumm (4.50-6.00); White Blood Cell Count 13.95 k/cumm (4.4-10.8)
[2018-03-20 07:34] LABS: Absolute Eosinophil Count 0.38 k/cumm (0.0-0.7); Absolute Lymphocyte Count 1.05 k/cumm (1.2-3.4); Absolute Neutrophil Count 11.76 k/cumm (1.2-6.7)
[2018-03-20 07:41] LABS: Anion Gap 7.6 mmol/L (3-11); BUN 50 mg/dL (7-18); CO2 25.4 mmol/L (21.0-32.0); CREATININE 2.68 mg/dL (0.70-1.30); Calcium 8.7 mg/dL (8.5-10.1); Chloride 104 mmol/L (98-107); Glucose 235 mg/dL (70-100); Magnesium 1.9 mg/dL (1.8-2.4); Sodium 137 mmol/L (136-145)
[2018-03-20] MEDS: Cyanocobalamin 500 MCG TAB 1000 MCG PO (08:16)
[2018-03-20] MEDS: Folic Acid 1 MG TAB PO (08:17)
[2018-03-20] MEDS: Furosemide 20 MG TAB PO ×2 (08:17→15:45)
[2018-03-20] MEDS: Magnesium Chloride 64 MG TABCR PO ×2 (08:18→19:59)
[2018-03-20] MEDS: Venlafaxine 37.5 MG CAPCR 75 MG PO (08:18)
[2018-03-20] MEDS: amLODIPine 10 MG TAB PO (08:19)
[2018-03-20] MEDS: Omeprazole 20 MG CAPCR PO (08:19)
[2018-03-20] MEDS: Terazosin 2 MG CAP 4 MG PO ×2 (08:20→20:00)
[2018-03-20] MEDS: Lactobacillus Acidophilus CAP 1 CAP PO ×3 (08:20→20:00)
[2018-03-20] MEDS: Metoprolol CR 25 MG TABCR PO (08:20)
[2018-03-20] MEDS: Ascorbic Acid 500 MG TAB PO ×2 (08:20→20:00)
[2018-03-20] MEDS: hydrALAZINE 10 MG TAB PO ×3 (08:21→20:01)
[2018-03-20] MEDS: Multivitamin TAB 1 TAB PO (08:21)
[2018-03-20] MEDS: cloNIDine 0.1 MG TAB PO ×3 (08:21→20:00)
[2018-03-20] MEDS: carBAMazepine 100 MG CHEW PO ×3 (08:21→20:00)
[2018-03-20] MEDS: Aspirin E.C. 81 MG TABEC PO ×2 (08:21→20:01)
[2018-03-20] MEDS: Ferrous Sulfate 325 MG TAB PO ×2 (08:21→20:00)
[2018-03-20] MEDS: Normal Saline Flush 10 ML SYR 20 ML IVP ×2 (08:23→20:01)
[2018-03-20] MEDS: Insulin Aspart 300 UNITS/3 ML PEN SC ×4 (08:23→22:03)
[2018-03-20] MEDS: Heparin 5,000 UNITS/ML VIAL 5000 UNITS SC ×3 (08:25→23:43)
[2018-03-20 08:45] VITALS: BP 133/76; PULSE 59; RESP 25; TEMP 36.4; O2SAT 92
[2018-03-20] MEDS: Gabapentin 300 MG CAP PO ×3 (10:21→20:00)
--- NOTE | 2018-03-20 10:39 | PT.INTREAT ---
Date of service: 03/20/18 Time of Service: 10:39 PT Notes Inpatient Physical Therapy Treatment Note [facility] Date: 03/20/18 PRECAUTIONS: Fall, WBAT R, post-op shoe R SUBJECTIVE: Brendan states that he is unwilling to sit up in the recliner chair today as he feels he sat up too long yesterday. OBJECTIVE: PAIN: Patient complains of buttock pain. BED MOBILITY/TRANSFERS Sit-supine: I Sit-stand: S Stand-sit: S GAIT Assistive Device: No AD Weight bearing: WBAT R Assist: S Distance: Scoot up to bed x5 to L THEREX: Patient completed a lower extremity strengthening program in a supine position, as per flow sheet. Patient also performed elbow flexion/extension and shoulder abduction exercises while in supine position. ASSESSMENT: Patient would benefit from continued strengthening as well as continued participation in gait and transfer training for improved strength and mobility, as well as improved activity tolerance. PLAN: Continue with PTs POC TREATMENT CODE/TIME: 25 minutes; 51661e0
[2018-03-20] MEDS: predniSONE 20 MG TAB PO (11:34)
[2018-03-20] MEDS: Normal Saline 500 ML IV (11:35)
--- NOTE | 2018-03-20 11:37 | OT.INTREAT ---
Date of service: 03/20/18 Time of Service: 09:15 Occupational Therapy Notes Occupational Therapy Inpatient Treatment Note Date: 03/20/18 SUBJECTIVE: Pt was sitting on the side of his bed eating breakfast when OT arrived. OBJECTIVE: BATHING: Upper Body: (I) With washing hands and lower arms. THERAPEUTIC ACTIVITIES: Pt demonstrated improved (I) with grasp and release techniques for (B) UE, functional his (R) was able to reach his (L), he had good hand to mouth translation with his (R) and performed increased gross motor control of (B) UE to increase his (I) in ADLs/IADLs. Pt functionally demonstrated increased fine motor control with (L) hand digits and tip pinch when opening small containers. ASSESSMENT/PLAN: Pt progressing to demonstrate increased (I) in AROM of (B) UE. He reports that he believes he will be returning to [facility] on Friday. He states that he has a niece who might have him live with her but that there are a lot of factors that play into this. He would demonstrate from continued skilled OT intervention for progression of (B) UE strength and increased (I) in functional dynamic movements during ADL routines. TREATMENT CODES/TIME: [id number], 30 minutes (914) Suzanne Javier OTR/[facility]
--- NOTE | 2018-03-20 11:43 | OTTR_ITS ---
Date of service: 03/20/18 Time of Service: 09:15 Occupational Therapy Notes Occupational Therapy Inpatient Treatment Note Date: 03/20/18 SUBJECTIVE: Pt was sitting on the side of his bed eating breakfast when OT arrived. OBJECTIVE: BATHING: Upper Body: (I) With washing hands and lower arms. THERAPEUTIC ACTIVITIES: Pt demonstrated improved (I) with grasp and release techniques for (B) UE, functional his (R) was able to reach his (L), he had good hand to mouth translation with his (R) and performed increased gross motor control of (B) UE to increase his (I) in ADLs/IADLs. Pt functionally demonstrated increased fine motor control with (L) hand digits and tip pinch when opening small containers. ASSESSMENT/PLAN: Pt progressing to demonstrate increased (I) in AROM of (B) UE. He reports that he believes he will be returning to [facility] on Friday. He states that he has a niece who might have him live with her but that there are a lot of factors that play into this. He would demonstrate from continued skilled OT intervention for progression of (B) UE strength and increased (I) in functional dynamic movements during ADL routines. TREATMENT CODES/TIME: [id number], 30 minutes (914) Suzanne Javier OTR/[facility]
--- NOTE | 2018-03-20 11:49 | W.PM.PROGNOT ---
Date of Service Date of service: 03/20/18 Time of Service: 11:49 Subjective Patient reports: no new complaints Interval history since last seen: Brendan is seen at bedside. He is resting comfortably. He has no complaints of pain in his right foot. Exam Narrative Exam Narrative: Vitals: BP is 133/76 pulse 59 respiration 25 x 36.4 O2 sat room air is 92 Lab results are noted. Dressings are removed from his right foot. The foot looks clean. No erythema no edema no active signs of infection. Surgery was done March 07 so he is now 15 days postop. The incision is generally dry is a little soft area in the central portion of it but by enlarge the wound is clean. The lateral plantar ulceration is granulating nicely and does not appear to show any signs of infection. Impressions: 15 days status post debridement right foot for chronic ulceration Plan: All suture was removed atraumatically. The wound will be reinforced with Steri-Strips. Continue wound care as previously outlined for the ulceration until that has fully epithelialized. Follow-up will be determined by the skilled nursing as I understand he is possibly going back to the [facility] on Friday. Local wound care would be continued until the wounds are fully healed. If complications arise I am happy to see him back at the office. I did discuss the case with Racquel, all questions been answered. Objective Objective Clinical Data: Abnormal lab results 03/20/18 03/20/18 Range/Units 06:30 06:30 WBC 13.95 H (4.4-10.8) k/cumm RBC 4.11 L (4.50-6.00) m/cumm Hgb 9.7 L (13.5-17.5) g/dL Hct 31.1 L (40.0-50.0) % MCV 75.7 L (80-95) fL MCH 23.6 L (27.0-33.0) pg MCHC 31.2 L (32.0-36.0) g/dL RDW 20.0 H (11.8-14.1) % Plt Count 413 H (130-400) x1000/uL Absolute Neutrophils 11.76 H (1.2-6.7) k/cumm Absolute Lymphocytes 1.05 L (1.2-3.4) k/cumm BUN 50 H (7-18) mg/dL Creatinine 2.68 H (0.70-1.30) mg/dL Glucose 235 H (70-100) mg/dL Vital Signs Temperature 36.4 C L 03/20/18 08:45 Temperature Source Tympanic 03/20/18 08:45 Pulse 59 L 03/20/18 08:45 Pulse Rhythm Regular 03/19/18 20:30 Pulse 65 03/17/18 16:00 Respiratory Rate 25 H 03/20/18 08:45 Respiratory Effort Non-Labored 03/19/18 20:30 Respiratory Depth Normal 03/19/18 20:30 Respiratory Pattern Normal 03/19/18 20:30 Blood Pressure 133/76 03/20/18 08:45 Blood Pressure Mean 98 03/17/18 11:22 Blood Pressure Position Supine 03/17/18 13:00 Pulse Oximetry 92 L 03/20/18 08:45 Oxygen Delivery Method Room Air 03/20/18 08:45 Oxygen Flow Rate 0 03/20/18 08:45 Pain Level 0 03/19/18 16:05 Comment 03/14/18 10:58 Intake & Output 03/19/18 03/20/18 03/20/18 18:59 06:59 18:59 Intake Total 33 / 333 300 / 333 20 / 20 Output Total 1075 / 3195 2120 / 3195 905 / 905 Balance -1042 / -2862 -1820 / -2862 -885 / -885 Weight 99.6 kg Intake: IV 33 / 333 300 / 333 20 / 20 Output: Drainage 150 / 150 125 / 125 Right Upper Abdomen 150 / 150 125 / 125 Urine 125 / 1125 1000 / 1125 750 / 750 Post Void Residual 30 / 30 Stool 800 / 1920 1120 / 1920 Other: Urine Color Yellow Yellow Yellow Urine Appearance Clear Clear Clear Urine Odor Normal Voiding Methods Urinal Urinal Laboratory Results WBC 13.95 k/cumm (4.4-10.8) H 03/20/18 06:30 RBC 4.11 m/cumm (4.50-6.00) L 03/20/18 06:30 Hgb 9.7 g/dL (13.5-17.5) L 03/20/18 06:30 Hct 31.1 % (40.0-50.0) L 03/20/18 06:30 MCV 75.7 fL (80-95) L 03/20/18 06:30 MCH 23.6 pg (27.0-33.0) L 03/20/18 06:30 MCHC 31.2 g/dL (32.0-36.0) L 03/20/18 06:30 RDW 20.0 % (11.8-14.1) H 03/20/18 06:30 Plt Count 413 x1000/uL (130-400) H 03/20/18 06:30 MPV 9.7 fL (8.0-11.0) 03/20/18 06:30 Abs Immat Gran (auto) Cancelled 03/05/18 05:35 Immature Gran % 0.9 03/20/18 06:30 Neutrophils % 84.3 03/20/18 06:30 Lymphocytes % 7.5 03/20/18 06:30 Monocytes % 4.3 03/20/18 06:30 Eosinophils % 2.7 03/20/18 06:30 Basophils % 0.3 03/20/18 06:30 Absolute Neutrophils 11.76 k/cumm (1.2-6.7) H 03/20/18 06:30 Band Neutrophils 2.0 % 03/08/18 06:15 Absolute Lymphocytes 1.05 k/cumm (1.2-3.4) L 03/20/18 06:30 Absolute Monocytes 0.60 k/cumm (0.11-0.7) 03/20/18 06:30 Absolute Eosinophils 0.38 k/cumm (0.0-0.7) 03/20/18 06:30 Absolute Basophils 0.04 k/cumm (0.0-0.2) 03/20/18 06:30 Metamyelocytes 1.0 % 03/10/18 06:15 Myelocytes 2.0 % 03/10/18 06:15 Promyelocytes Cancelled 03/05/18 05:35 Nucleated RBCs Cancelled 03/05/18 05:35 Differential Comment Manual differential 03/10/18 06:15 Atypical Lymphocytes Cancelled 03/05/18 05:35 Other Cell Type Cancelled 03/05/18 05:35 RBC Morphology See below 03/10/18 06:15 Polychromasia Present 03/02/18 07:00 Hypochromasia 3+ 03/10/18 06:15 Poikilocytosis 3+ 03/10/18 06:15 Basophilic Stippling Cancelled 03/05/18 05:35 Anisocytosis 3+ 03/10/18 06:15 Microcytosis 3+ 03/10/18 06:15 Macrocytosis Cancelled 03/05/18 05:35 Spherocytes Cancelled 03/05/18 05:35 Target Cells Cancelled 03/05/18 05:35 Tear Drop Cells 2+ 03/01/18 09:38 Ovalocytes 2+ 03/02/18 07:00 Stomatocytes Cancelled 03/05/18 05:35 [place] Bodies Cancelled 03/05/18 05:35 [place] Cells Cancelled 03/05/18 05:35 Acanthocytes (Spur) Cancelled 03/05/18 05:35 Schistocytes Cancelled 03/05/18 05:35 PT 9.6 sec (9.3-11.0) 03/05/18 13:12 INR 1.0 (0.9-1.1) 03/05/18 13:12 Sample Site Left radial 03/14/18 11:03 pCO2 40 mmHg (34-47) 03/14/18 11:03 pO2 64 mmHg (83-108) L 03/14/18 11:03 O2 Saturation 93 % (94-98) L 03/14/18 11:03 ABG pH 7.16 (7.35-7.45) L* 03/14/18 11:03 ABG HCO3 14 mmol/L (22-28) L 03/14/18 11:03 ABG Total CO2 14 mmol/L (22-29) L 03/14/18 11:03 ABG Base Excess -14.5 mmol/L (-3-3) L 03/14/18 11:03 VBG pH 7.29 (7.32-7.43) L 03/17/18 06:45 VBG pCO2 51 mm/Hg (34-47) H 03/17/18 06:45 VBG pO2 57 mm/Hg (28-44) H 03/17/18 06:45 VBG HCO3 25 mmol/L (22-28) 03/17/18 06:45 VBG Total CO2 24 mmol/L (22-29) 03/17/18 06:45 VBG O2 Saturation 90 % (70-80) H 03/17/18 06:45 VBG Base Excess -1.9 mmol/L (-3-3) 03/17/18 06:45 FiO2 21 % 03/14/18 11:03 Sodium 137 mmol/L (136-145) 03/20/18 06:30 Potassium 5.0 mmol/L (3.5-5.1) 03/20/18 06:30 Chloride 104 mmol/L (98-107) 03/20/18 06:30 Carbon Dioxide 25.4 mmol/L (21.0-32.0) 03/20/18 06:30 Anion Gap 7.6 mmol/L (3-11) 03/20/18 06:30 BUN 50 mg/dL (7-18) H 03/20/18 06:30 Creatinine 2.68 mg/dL (0.70-1.30) H 03/20/18 06:30 Estimated GFR/1.73 m2 24.60 (mL/min/1.73m2) 03/20/18 06:30 Glucose 235 mg/dL (70-100) H 03/20/18 06:30 Lactate 0.5 mmol/L (0.6-1.4) L 03/14/18 17:22 Calcium 8.7 mg/dL (8.5-10.1) 03/20/18 06:30 Magnesium 1.9 mg/dL (1.8-2.4) 03/20/18 06:30 Total Bilirubin 0.2 mg/dL (0.2-1.0) 03/01/18 09:38 Conjugated Bilirubin 0.08 mg/dL (0.00-0.20) 03/01/18 09:38 AST 3 U/L (15-37) L 03/01/18 09:38 ALT 13 U/L (12-78) 03/01/18 09:38 Alkaline Phosphatase 273 U/L (46-116) H 03/01/18 09:38 Creatine Kinase 15 U/L (39-308) L 03/08/18 21:20 C-Reactive Protein 2.76 mg/dL (0.0-0.3) H 03/16/18 06:38 Total Protein 7.1 g/dL (6.4-8.2) 03/01/18 09:38 Albumin 2.3 g/dL (3.4-5.0) L 03/01/18 09:38 TSH 0.61 uIU/mL (0.358-3.74) 03/02/18 07:00 Urine Color Yellow (Yellow) 03/19/18 21:06 Urine Clarity Clear 03/19/18 21:06 Urine pH 5.5 (5-8) 03/19/18 21:06 Ur Specific [place] 1.010 (1.005-1.025) 03/19/18 21:06 Urine Protein Negative mg/dL (Negative) 03/19/18 21:06 Urine Ketones Negative mg/dL (Negative) 03/19/18 21:06 Urine Blood Negative (Negative) 03/19/18 21:06 Urine Nitrite Negative (Negative) 03/19/18 21:06 Urine Bilirubin Negative (Negative) 03/19/18 21:06 Urine Urobilinogen 0.2 EU/dL (Up TO 0.2) 03/19/18 21:06 Ur Leukocyte Esterase Negative (Negative) 03/19/18 21:06 Urine RBC Not Applicable 03/14/18 12:00 Urine WBC >50 HPF (0-5) 03/14/18 12:00 Ur Epithelial Cells Not Applicable 03/14/18 12:00 Urine Crystals Not Applicable 03/14/18 12:00 Urine Bacteria Not Applicable 03/14/18 12:00 Urine Casts 3-5 coarse granular LPF (Negative) 03/04/18 14:20 Urine Mucus Not Applicable 03/14/18 12:00 Urine Other Moderate yeast (Negative) 03/04/18 14:20 Ur Culture Indicated? C&s done as ordered 03/14/18 12:00 Urine Glucose Negative mg/dL (Negative) 03/19/18 21:06 Vancomycin Trough 23.4 ug/mL (10.0-20.0) H* 03/19/18 08:45
[2018-03-20 12:47] LABS: Glucose 264 mg/dL (70-100)
[2018-03-20 12:59] VITALS: BP 134/74; PULSE 62; RESP 20; TEMP 36.7; O2SAT 95
[2018-03-20 16:08] VITALS: BP 158/85; PULSE 63; RESP 19; TEMP 37.5; O2SAT 95
--- NOTE | 2018-03-20 16:08 | PT.INTREAT ---
Date of service: 03/20/18 Time of Service: 16:08 PT Notes Inpatient Physical Therapy Treatment Note [facility] Date: 03/20/18 PRECAUTIONS MURSA SUBJECTIVE: Pt reports that he is tired this afternoon and he doesn't know how much he is going to be able to do with me today. OBJECTIVE: GAIT THEREX: Pt refused getting OOB. Pt completed UE and LE ther ex as per flow sheet. Pt did require rest periods due to slight fatigue after each exercise was performed. Pt had limited ROM with his UE's but did try and complete what he could with his UE's. ASSESSMENT: Pt was fatigued this afternoon and did not feel up to getting OOB. Pt was motivated to complete his bed ther ex. PLAN: Cont as per PT POC. TREATMENT CODE/TIME: 3:45-4:05 (20) TP
--- NOTE | 2018-03-20 16:54 | PDOC.CMPRO ---
Care Management Progress Note S/O: Brendan continues to make gains and his affect and energy are improving as well. Per MD, Brendan will be discharge ready no sooner than 03/23/18 and will continue slow steroid taper after discharge. Isela of the [facility] reports DON: Meg shared recent concerns central to Brendan's labs and requested updated labs be faxed for their review on 03/22/18 prior to discharge coordination for Brendan's return on Friday(anticipated per MD). CM continues to follow and update [facility] of discharge planning considerations. A: 57 year old male admitted to [facility] 03/01/18 for Hyperglycemia, encephalopathy, suspected sepsis, pneumonia P: Isela of the [facility] reports DON: Meg shared recent concerns central to Brendan's labs and requested updated labs be faxed for their review on 03/22/18 prior to discharge coordination for Brendan's return on Friday(anticipated per MD). CM will continue to monitor clinical progress and support discharge planning considerations, Brendan will return to the [facility], prior to transferring to LTC as the [facility] is also his residence for the past eight years or so. He will require follow up with Dr. Ashford. Brendan will transport via [facility] Van coordinated by this blog writer.
[2018-03-20 19:23] VITALS: BP 150/72; PULSE 66; RESP 20; TEMP 37.8; O2SAT 96
--- NOTE | 2018-03-20 19:53 | NUR.NOTE ---
Nursing Note: Report received from off-going nurse, patient is currently resting in bed with no report of pain or discomfort at this time, the bed is in the low and locked position, side rails up, x2, call light within reach.
[2018-03-20] MEDS: Nystatin POWDER 60 GM JAR TP (20:07)
--- NOTE | 2018-03-20 21:19 | W.PM.PROGNOT ---
Date of Service Date of service: 03/20/18 Time of Service: 16:00 Assessment and Plan (1) Adrenal insufficiency: Current visit: No Status: Acute Acute on chronic, likely precipitated by missed doses of prednisone, improving. Continue very slow steroid taper. When returns to nursing facility, the steroid taper should be very protracted. Septic workup is negative with possible RUL and L base infiltrates, but these are likely actually atelectasis. To finish abx on 03/21 (unless blood cultures drawn today for fever @ 7 pm are positive) (2) Toxic metabolic encephalopathy: Current visit: Yes Status: Resolved Resolved; was due to acute on chronic adrenal insufficiency and metabolic acidosis. Continue to monitor (3) Metabolic acidosis: Current visit: Yes Status: Resolved Multifactorial, due to 1. Adrenal insufficiency 2. Chronic kidney disease 3. Fluid overload Resolved. (4) 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 2 diabetes mellitus: Current visit: Yes Status: Ruled-out Not confirmed by bone biopsy, as per my conversation with Dr Ashford. Non-healing diabetic foot ulcer with osteomyelitis right 5th metatarsal. Now s/p debridement on 03/06 with resection of the 5th MP. Per Dr Ashford, 2 weeks of abx should be sufficient (end date 03/21/18) Cotninue Vancomycin and Ertapenem, per ID at [facility], for broader coverage in case of other / polymicrobial infection that is not present on current culture. Consider a CTA of the LE's to evaluate perfusion to legs on outpatient bases (vs SUSANNA). (5) Chronic cholecystitis: Current visit: Yes Status: Acute Cholecystostomy drain was not changed at [facility] on 03/05/17 - per discussion with IR, there would not have been a benefit to it from the stand point of decreasing infection risk, as long as the drain is functioning well and continues to drain. Will need outpatient [facility] general surgery follow up for cholecystectomy. (6) HCAP (healthcare-associated pneumonia): Current visit: No Status: Resolved As above - infiltrates on repeat CXR are not convincingly pneumonia. Patient is S/p 5 days of therapy with Vancomycin and Pip-Tazo. Sputum cx with MRSA. Continue vancomycin/ertapenem. CXR with significant improvement. Blood cultures drawn today due to the fever and presence of a central line. (7) Acute on chronic kidney failure: Current visit: No Status: Resolved Monitor Cr while diuresing (8) Hyperkalemia: Current visit: No Status: Resolved Resolved. (9) DVT prophylaxis: Current visit: No Status: Acute SC Heparin (10) Advance directive on file: Current visit: Yes Status: Acute Full Code Palliative care consult (11) Pulmonary hypertension: Current visit: Yes Status: Chronic Likely related to obstructive sleep apnea. The patient does not tolerate CPAP/BiPAP therapy. Volume status should be carefully monitored. F/u as outpatient with a sleep study if patient agrees to be more compliant with a CPAP Subjective Interval history since last seen: Feels well today - has no complaints. Denies dizziness, chest pain, shortness of breath, nausea, vomiting. Exam Narrative Exam Narrative: General: A&Ox3, at baseline, looks a little pale HEENT: EOMI, MMM Heart: RRR, NUVIA Lungs: clear diminished breath sounds B GI: abdomen soft, nontender, nondistended; + ileostomy and cholecystostomy drains Extremities: R foot dressed. No edema BLE's today. Chronic venous stasis changes. Objective Objective Clinical Data: Abnormal lab results 03/20/18 03/20/18 03/20/18 Range/Units 06:30 06:30 12:32 WBC 13.95 H (4.4-10.8) k/cumm RBC 4.11 L (4.50-6.00) m/cumm Hgb 9.7 L (13.5-17.5) g/dL Hct 31.1 L (40.0-50.0) % MCV 75.7 L (80-95) fL MCH 23.6 L (27.0-33.0) pg MCHC 31.2 L (32.0-36.0) g/dL RDW 20.0 H (11.8-14.1) % Plt Count 413 H (130-400) x1000/uL Absolute Neutrophils 11.76 H (1.2-6.7) k/cumm Absolute Lymphocytes 1.05 L (1.2-3.4) k/cumm BUN 50 H (7-18) mg/dL Creatinine 2.68 H (0.70-1.30) mg/dL Glucose 235 H 264 H (70-100) mg/dL Vital Signs Temperature 37.8 C H 03/20/18 19:23 Temperature Source Tympanic 03/20/18 19:23 Pulse 66 03/20/18 19:23 Pulse Rhythm Regular 03/20/18 11:41 Pulse 65 03/17/18 16:00 Respiratory Rate 20 03/20/18 19:23 Respiratory Effort Non-Labored 03/20/18 11:41 Respiratory Depth Normal 03/20/18 11:41 Respiratory Pattern Normal 03/20/18 11:41 Blood Pressure 150/72 H 03/20/18 19:23 Blood Pressure Mean 98 03/17/18 11:22 Blood Pressure Position Supine 03/17/18 13:00 Pulse Oximetry 96 03/20/18 19:23 Oxygen Delivery Method Room Air 03/20/18 19:23 Oxygen Flow Rate 0 03/20/18 19:23 Pain Level 0 03/19/18 16:05 Comment 03/14/18 10:58 Intake & Output 03/19/18 03/20/18 03/20/18 23:59 11:59 23:59 Intake Total 300 / 333 20 / 156.674 136.674 / 156.674 Output Total 1170 / 3170 2205 / 3805 1600 / 3805 Balance -870 / -2837 -2185 / -3648.326 -1463.326 / -3648.326 Weight 99.6 kg Intake: IV 300 / 333 20 / 156.674 136.674 / 156.674 Output: Drainage 125 / 125 Right Upper Abdomen 125 / 125 Urine 400 / 925 1350 / 1850 500 / 1850 Post Void Residual 30 / 30 Stool 770 / 2020 700 / 1800 1100 / 1800 Other: Urine Color Yellow Yellow Yellow Urine Appearance Clear Clear Clear Urine Odor Normal Normal Voiding Methods Urinal Urinal Laboratory Results WBC 13.95 k/cumm (4.4-10.8) H 03/20/18 06:30 RBC 4.11 m/cumm (4.50-6.00) L 03/20/18 06:30 Hgb 9.7 g/dL (13.5-17.5) L 03/20/18 06:30 Hct 31.1 % (40.0-50.0) L 03/20/18 06:30 MCV 75.7 fL (80-95) L 03/20/18 06:30 MCH 23.6 pg (27.0-33.0) L 03/20/18 06:30 MCHC 31.2 g/dL (32.0-36.0) L 03/20/18 06:30 RDW 20.0 % (11.8-14.1) H 03/20/18 06:30 Plt Count 413 x1000/uL (130-400) H 03/20/18 06:30 MPV 9.7 fL (8.0-11.0) 03/20/18 06:30 Abs Immat Gran (auto) Cancelled 03/05/18 05:35 Immature Gran % 0.9 03/20/18 06:30 Neutrophils % 84.3 03/20/18 06:30 Lymphocytes % 7.5 03/20/18 06:30 Monocytes % 4.3 03/20/18 06:30 Eosinophils % 2.7 03/20/18 06:30 Basophils % 0.3 03/20/18 06:30 Absolute Neutrophils 11.76 k/cumm (1.2-6.7) H 03/20/18 06:30 Band Neutrophils 2.0 % 03/08/18 06:15 Absolute Lymphocytes 1.05 k/cumm (1.2-3.4) L 03/20/18 06:30 Absolute Monocytes 0.60 k/cumm (0.11-0.7) 03/20/18 06:30 Absolute Eosinophils 0.38 k/cumm (0.0-0.7) 03/20/18 06:30 Absolute Basophils 0.04 k/cumm (0.0-0.2) 03/20/18 06:30 Metamyelocytes 1.0 % 03/10/18 06:15 Myelocytes 2.0 % 03/10/18 06:15 Promyelocytes Cancelled 03/05/18 05:35 Nucleated RBCs Cancelled 03/05/18 05:35 Differential Comment Manual differential 03/10/18 06:15 Atypical Lymphocytes Cancelled 03/05/18 05:35 Other Cell Type Cancelled 03/05/18 05:35 RBC Morphology See below 03/10/18 06:15 Polychromasia Present 03/02/18 07:00 Hypochromasia 3+ 03/10/18 06:15 Poikilocytosis 3+ 03/10/18 06:15 Basophilic Stippling Cancelled 03/05/18 05:35 Anisocytosis 3+ 03/10/18 06:15 Microcytosis 3+ 03/10/18 06:15 Macrocytosis Cancelled 03/05/18 05:35 Spherocytes Cancelled 03/05/18 05:35 Target Cells Cancelled 03/05/18 05:35 Tear Drop Cells 2+ 03/01/18 09:38 Ovalocytes 2+ 03/02/18 07:00 Stomatocytes Cancelled 03/05/18 05:35 Glover-Ehrenberg Bodies Cancelled 03/05/18 05:35 [place] Cells Cancelled 03/05/18 05:35 Acanthocytes (Spur) Cancelled 03/05/18 05:35 Schistocytes Cancelled 03/05/18 05:35 PT 9.6 sec (9.3-11.0) 03/05/18 13:12 INR 1.0 (0.9-1.1) 03/05/18 13:12 Sample Site Left radial 03/14/18 11:03 pCO2 40 mmHg (34-47) 03/14/18 11:03 pO2 64 mmHg (83-108) L 03/14/18 11:03 O2 Saturation 93 % (94-98) L 03/14/18 11:03 ABG pH 7.16 (7.35-7.45) L* 03/14/18 11:03 ABG HCO3 14 mmol/L (22-28) L 03/14/18 11:03 ABG Total CO2 14 mmol/L (22-29) L 03/14/18 11:03 ABG Base Excess -14.5 mmol/L (-3-3) L 03/14/18 11:03 VBG pH 7.29 (7.32-7.43) L 03/17/18 06:45 VBG pCO2 51 mm/Hg (34-47) H 03/17/18 06:45 VBG pO2 57 mm/Hg (28-44) H 03/17/18 06:45 VBG HCO3 25 mmol/L (22-28) 03/17/18 06:45 VBG Total CO2 24 mmol/L (22-29) 03/17/18 06:45 VBG O2 Saturation 90 % (70-80) H 03/17/18 06:45 VBG Base Excess -1.9 mmol/L (-3-3) 03/17/18 06:45 FiO2 21 % 03/14/18 11:03 Sodium 137 mmol/L (136-145) 03/20/18 06:30 Potassium 5.0 mmol/L (3.5-5.1) 03/20/18 06:30 Chloride 104 mmol/L (98-107) 03/20/18 06:30 Carbon Dioxide 25.4 mmol/L (21.0-32.0) 03/20/18 06:30 Anion Gap 7.6 mmol/L (3-11) 03/20/18 06:30 BUN 50 mg/dL (7-18) H 03/20/18 06:30 Creatinine 2.68 mg/dL (0.70-1.30) H 03/20/18 06:30 Estimated GFR/1.73 m2 24.60 (mL/min/1.73m2) 03/20/18 06:30 Glucose 264 mg/dL (70-100) H 03/20/18 12:32 Lactate 0.5 mmol/L (0.6-1.4) L 03/14/18 17:22 Calcium 8.7 mg/dL (8.5-10.1) 03/20/18 06:30 Magnesium 1.9 mg/dL (1.8-2.4) 03/20/18 06:30 Total Bilirubin 0.2 mg/dL (0.2-1.0) 03/01/18 09:38 Conjugated Bilirubin 0.08 mg/dL (0.00-0.20) 03/01/18 09:38 AST 3 U/L (15-37) L 03/01/18 09:38 ALT 13 U/L (12-78) 03/01/18 09:38 Alkaline Phosphatase 273 U/L (46-116) H 03/01/18 09:38 Creatine Kinase 15 U/L (39-308) L 03/08/18 21:20 C-Reactive Protein 2.76 mg/dL (0.0-0.3) H 03/16/18 06:38 Total Protein 7.1 g/dL (6.4-8.2) 03/01/18 09:38 Albumin 2.3 g/dL (3.4-5.0) L 03/01/18 09:38 TSH 0.61 uIU/mL (0.358-3.74) 03/02/18 07:00 Urine Color Yellow (Yellow) 03/19/18 21:06 Urine Clarity Clear 03/19/18 21:06 Urine pH 5.5 (5-8) 03/19/18 21:06 Ur Specific [place] 1.010 (1.005-1.025) 03/19/18 21:06 Urine Protein Negative mg/dL (Negative) 03/19/18 21:06 Urine Ketones Negative mg/dL (Negative) 03/19/18 21:06 Urine Blood Negative (Negative) 03/19/18 21:06 Urine Nitrite Negative (Negative) 03/19/18 21:06 Urine Bilirubin Negative (Negative) 03/19/18 21:06 Urine Urobilinogen 0.2 EU/dL (Up TO 0.2) 03/19/18 21:06 Ur Leukocyte Esterase Negative (Negative) 03/19/18 21:06 Urine RBC Not Applicable 03/14/18 12:00 Urine WBC >50 HPF (0-5) 03/14/18 12:00 Ur Epithelial Cells Not Applicable 03/14/18 12:00 Urine Crystals Not Applicable 03/14/18 12:00 Urine Bacteria Not Applicable 03/14/18 12:00 Urine Casts 3-5 coarse granular LPF (Negative) 03/04/18 14:20 Urine Mucus Not Applicable 03/14/18 12:00 Urine Other Moderate yeast (Negative) 03/04/18 14:20 Ur Culture Indicated? C&s done as ordered 03/14/18 12:00 Urine Glucose Negative mg/dL (Negative) 03/19/18 21:06 Vancomycin Trough 23.4 ug/mL (10.0-20.0) H* 03/19/18 08:45
[2018-03-20] MEDS: Insulin Glargine 300 UNITS/3 ML PEN 60 UNITS SC (22:04)
[2018-03-20] MEDS: traZODone 50 MG TAB PO (22:08)
[2018-03-20] MEDS: risperiDONE 1 MG TAB 3 MG PO (22:09)
[2018-03-20] MEDS: Melatonin 3 MG TAB 9 MG PO (23:42)
[2018-03-20 23:53] VITALS: BP 154/88; PULSE 60; RESP 19; TEMP 36.7; O2SAT 94
[2018-03-21 03:24] VITALS: BP 129/72; PULSE 60; RESP 18; TEMP 36.1; O2SAT 96
[2018-03-21] MEDS: Levothyroxine 75 MCG TAB 37.5 MCG PO (05:13)
[2018-03-21] MEDS: Acetaminophen 325 MG TAB PO ×2 (05:14→20:14)
[2018-03-21] MEDS: Normal Saline Flush 10 ML SYR IVP (06:22)
[2018-03-21 08:10] VITALS: BP 168/79; PULSE 63; RESP 17; TEMP 36.5; O2SAT 98
[2018-03-21] MEDS: Heparin 5,000 UNITS/ML VIAL 5000 UNITS SC ×3 (08:50→23:55)
[2018-03-21] MEDS: Insulin Aspart 300 UNITS/3 ML PEN SC ×4 (09:01→21:53)
[2018-03-21] MEDS: Terazosin 2 MG CAP 4 MG PO ×2 (09:02→19:54)
[2018-03-21] MEDS: Aspirin E.C. 81 MG TABEC PO ×2 (09:02→19:54)
[2018-03-21] MEDS: carBAMazepine 100 MG CHEW PO ×3 (09:03→19:53)
[2018-03-21] MEDS: Metoprolol CR 25 MG TABCR PO (09:03)
[2018-03-21] MEDS: Gabapentin 300 MG CAP PO ×3 (09:03→19:53)
[2018-03-21] MEDS: Cyanocobalamin 500 MCG TAB 1000 MCG PO (09:03)
[2018-03-21] MEDS: Venlafaxine 37.5 MG CAPCR 75 MG PO (09:04)
[2018-03-21] MEDS: Magnesium Chloride 64 MG TABCR PO ×2 (09:04→19:53)
[2018-03-21] MEDS: hydrALAZINE 10 MG TAB PO ×3 (09:04→19:53)
[2018-03-21] MEDS: Omeprazole 20 MG CAPCR PO (09:04)
[2018-03-21] MEDS: Multivitamin TAB 1 TAB PO (09:04)
[2018-03-21] MEDS: Lactobacillus Acidophilus CAP 1 CAP PO ×3 (09:04→19:53)
[2018-03-21] MEDS: Ascorbic Acid 500 MG TAB PO ×2 (09:06→19:53)
[2018-03-21] MEDS: Folic Acid 1 MG TAB PO (09:06)
[2018-03-21] MEDS: amLODIPine 10 MG TAB PO (09:06)
[2018-03-21] MEDS: Furosemide 20 MG TAB PO ×2 (09:06→15:25)
[2018-03-21] MEDS: cloNIDine 0.1 MG TAB PO ×3 (09:07→19:54)
[2018-03-21] MEDS: Ferrous Sulfate 325 MG TAB PO ×2 (09:07→19:53)
[2018-03-21] MEDS: predniSONE 20 MG TAB PO (09:07)
[2018-03-21] MEDS: Nystatin POWDER 60 GM JAR TP ×2 (09:07→19:54)
[2018-03-21 11:50] VITALS: BP 163/88; PULSE 60; RESP 17; TEMP 37; O2SAT 97
[2018-03-21] MEDS: Normal Saline Flush 10 ML SYR 20 ML IVP ×2 (12:18→19:54)
--- NOTE | 2018-03-21 14:01 | PT.INTREAT ---
Date of service: 03/21/18 Time of Service: 13:20 PT Notes Inpatient Physical Therapy Treatment Note [facility] Date: 03/21/18 SUBJECTIVE: Brendan states that he is disappointed that he has lost ground in regards to his strength. He feels as though he is starting from scratch. It should not have taken so long for PT to work with me. I have been here since the 3rd. OBJECTIVE: [] BED MOBILITY/TRANSFERS Supine-sitI Sit-supine: I THEREX: performed his ther ex routine for global LE strengthening, with attempts at some UE strengthening. See flowsheet for detaisl. ASSESSMENT: tolerated session well, despite being angry about starting all over. He refused to get OOB today. Increased c/o itchy back of which he focused on having nurses wash for him. PLAN: will continue to progress his strength and functional mobility to tolerance, following PT POC. TREATMENT CODE/TIME: 15 min TPx1.
[2018-03-21 16:12] VITALS: BP 166/78; PULSE 61; RESP 20; TEMP 37.1; O2SAT 94
--- NOTE | 2018-03-21 17:04 | PDOC.CMPRO ---
- If Service Date Differs Date of service: 03/21/18 Time of Service: 17:05 Care Management Progress Note S/O: Brendan to complete his IV antibiotics today. He will be monitored over the remainder of the weekend and plan for him to discharge to return to the [facility] on Friday. CM to fax updated labs and notes to the [facility] on Friday. A: 57 year old male admitted to [facility] 03/01/18 for Hyperglycemia, encephalopathy, suspected sepsis, pneumonia P: Isela of the [facility] reports DON: Meg shared recent concerns central to Brendan's labs and requested updated labs be faxed for their review on 03/22/18 prior to discharge coordination for Brendan's return on Friday(anticipated per MD). CM will continue to monitor clinical progress and support discharge planning considerations, Brendan will return to the [facility], [facility], prior to transferring to LTC as the [facility] is also his residence for the past eight years or so. He will require follow up with Dr. Ashford. Brendan will transport via W/C Van coordinated by this procedure writer.
--- NOTE | 2018-03-21 19:22 | NUR.NOTE ---
Nursing Note: Report received from off-going nurse, patient is in stable condition, currently resting in bed with no report of pain or discomfort at this time, the bed is in the low and locked position, side rails up x2, call light within reach.
--- NOTE | 2018-03-21 21:32 | PGE_ITS ---
Date of Service Date of service: 03/21/18 Time of Service: 21:32 Assessment and Plan (1) Adrenal insufficiency: Current visit: No Status: Acute Patient with acute adrenal insufficiency precipitated by missed doses of increased dose prednisone. Will require very slow taper, with a potential higher baseline dose of prednisone therapy. (2) 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 2 diabetes mellitus: Current visit: Yes Status: Ruled-out Non-healing diabetic foot ulcer, with Xray showing evidence of potential osteo of the right 5th metatarsal. S/p debridement on 03/06 with resection of the 5th MPJ - culture of the tissue grew MRSA and Proteus Mirabilis. Per discussion with podiatry Osteo was not confirmed by biopsy. Has received 2 weeks of broad spectrum antibiotics post debridement and resection - discontinued this morning. Consider further evaluation of the LEs as an outpatient to evaluate for likely PVD and poor perfusion in diabetic patient. (3) Chronic cholecystitis: Current visit: Yes Status: Acute Cholecystostomy drain was not changed at [facility] on 03/05/17 - per discussion with IR, there would not have been a benefit to it from the stand point of decreasing infection risk, as long as the drain is functioning well and continues to drain.Will need outpatient [facility] general surgery follow up for cholecystectomy. (4) HCAP (healthcare-associated pneumonia): Current visit: No Status: Resolved S/p 5 days of therapy with Vancomycin and Pip-Tazo. Unsure if this was a true diagnosis as repeat read of CXR and repeat imaging failed to show evidence of an infiltrate. However, Sputum culture with MRSA despite the fact that patient had been on lengthy treatment with Vancomycin for MRSA bacteremia in early January. (5) Acute on chronic kidney failure: Current visit: No Status: Resolved Resolved. Patient no longer on ARYA-I. Has lengthy history of significant hyperkalemia, and elevated K+ which he also experienced earlier this hospitalization, requiring additional dose of IV Diuretic and Kayexalate. Continue renal low potassium diet, renally dose medications, and monitor renal function. (6) Hyperkalemia: Current visit: No Status: Resolved Resolved. (7) DVT prophylaxis: Current visit: No Status: Acute SC Heparin (8) Advance directive on file: Current visit: Yes Status: Acute Full Code Subjective Interval history since last seen: 57 year old resident of the [facility], with a recent history of MRSA bacteremia on IV vancomycin, admitted from [facility] Emergency Department on 03/01 with a diagnosis of Health Care Aquired Pneumonia. Mr. Corley has been hospitalized here at [facility] with sepsis on numerous prior occasions. He has a history of Group C strep bacteremia and E. Fecalis UTI in the past, and following his discharge returned to the hospital septic and suffered a cardiopulmonary arrest necessitating a transfer to [facility]. He was treated for Choleycystitis, and as he is not a surgical candidate, he was treated conservatively with a pigtail catheter and antibiotics. He is chronically a resident at the [facility]. His other medical history includes DM, Adrenal insufficiency secondary to chronic steroid use, RA, Crohn's disease s/p Colectomy, OA, CKD with prior JESUS and resultant hy perkalemia, HTN, CAD, hypothyroidism, Obesity, and chronic pain. He's had recurrent UTIs, and also has a history of a non-healing diabetic foot ulcer. The patient was send to the ED due to worsening lethargy and hyperglycemia as noted in his Long-Term. While his initial CXR showed evidence of potential pneumonia vs. edema, subsequent read and repeat imaging showed no evidence of definitive acute process. His sputum did grow MRSA - of note, he has had a recent MRSA bacteremia that he had remained on Vancomycin for - he was unable to go through a KELLEE, but due to a persistent murmur was under long-term antibiotic therapy due to have ended on 03/10. Mr. Corley was initially maintained on Vancomycin and Pip-Tazo, underwent a debridement of his wound via Podiatry, with cultures growing MRSA and Proteus Mirabilis. He was also growing Staph Epidermidis on surgical culture. Although diagnosed with Osteo, this was not confirmed by bone biopsy, and as the patient underwent debridement and excision of the digit, he was treated with a 2 week course of antibiotics, concluded on 03/21. The patient had also developed hyperkalemia recently despite a stable creatinine, necessitating treatment with additional lasix and Kayexalate. His potassium is normalized again this morning. No other events reported. He remains afebrile. Exam Narrative Exam Narrative: Exam Narrative: General: Patient appears comfortable initially asleep but easily arousable, obese, AAOX3, NAD Neck: Supple CV: Regular, nontachycardic, S1S2 Pulmonary: Clear to auscultation bilaterally, no crackles, wheezing, or rhonchi Abdomen: + Bowel Sounds, soft, nontender, nondistended, obese in contour. Ileostomy and cholecystostomy drains noted. Vascular: B/l lower extremity edema and chronic hyperpigmentation Musculoskeletal: Right foot with bandage in place - appears c/d/i Psych: Normal mood and affect. Objective Objective Clinical Data: Vital Signs Temperature 37.1 C 03/21/18 16:12 Temperature Source Tympanic 03/21/18 16:12 Pulse 61 03/21/18 16:12 Pulse Rhythm Regular 03/21/18 08:45 Pulse 65 03/17/18 16:00 Respiratory Rate 20 03/21/18 16:12 Respiratory Effort Non-Labored 03/21/18 08:45 Respiratory Depth Normal 03/21/18 08:45 Respiratory Pattern Normal 03/21/18 08:45 Blood Pressure 166/78 H 03/21/18 16:12 Blood Pressure Mean 98 03/17/18 11:22 Blood Pressure Position Supine 03/17/18 13:00 Pulse Oximetry 94 L 03/21/18 16:12 Oxygen Delivery Method Room Air 03/21/18 16:12 Oxygen Flow Rate 0 03/21/18 16:12 Pain Level 4 03/21/18 20:14 Comment 03/14/18 10:58 Intake & Output 03/20/18 03/21/18 03/21/18 23:59 11:59 23:59 Intake Total 356.674 / 376.674 690 / 1290 600 / 1290 Output Total 3175 / 5530 1530 / 2030 500 / 2030 Balance -2818.326 / -5153.326 -840 / -740 100 / -740 Weight 99.2 kg Intake: IV 356.674 / 376.674 Oral 670 / 1270 600 / 1270 Output: Drainage 450 / 450 Right Upper Abdomen 450 / 450 Urine 1700 / 3200 580 / 1080 500 / 1080 Stool 1475 / 2175 500 / 500 Other: Urine Color Yellow Yellow Yellow Urine Appearance Clear Clear Urine Odor Normal Normal Voiding Methods Urinal Urinal Urinal Laboratory Results WBC 13.95 k/cumm (4.4-10.8) H 03/20/18 06:30 RBC 4.11 m/cumm (4.50-6.00) L 03/20/18 06:30 Hgb 9.7 g/dL (13.5-17.5) L 03/20/18 06:30 Hct 31.1 % (40.0-50.0) L 03/20/18 06:30 MCV 75.7 fL (80-95) L 03/20/18 06:30 MCH 23.6 pg (27.0-33.0) L 03/20/18 06:30 MCHC 31.2 g/dL (32.0-36.0) L 03/20/18 06:30 RDW 20.0 % (11.8-14.1) H 03/20/18 06:30 Plt Count 413 x1000/uL (130-400) H 03/20/18 06:30 MPV 9.7 fL (8.0-11.0) 03/20/18 06:30 Abs Immat Gran (auto) Cancelled 03/05/18 05:35 Immature Gran % 0.9 03/20/18 06:30 Neutrophils % 84.3 03/20/18 06:30 Lymphocytes % 7.5 03/20/18 06:30 Monocytes % 4.3 03/20/18 06:30 Eosinophils % 2.7 03/20/18 06:30 Basophils % 0.3 03/20/18 06:30 Absolute Neutrophils 11.76 k/cumm (1.2-6.7) H 03/20/18 06:30 Band Neutrophils 2.0 % 03/08/18 06:15 Absolute Lymphocytes 1.05 k/cumm (1.2-3.4) L 03/20/18 06:30 Absolute Monocytes 0.60 k/cumm (0.11-0.7) 03/20/18 06:30 Absolute Eosinophils 0.38 k/cumm (0.0-0.7) 03/20/18 06:30 Absolute Basophils 0.04 k/cumm (0.0-0.2) 03/20/18 06:30 Metamyelocytes 1.0 % 03/10/18 06:15 Myelocytes 2.0 % 03/10/18 06:15 Promyelocytes Cancelled 03/05/18 05:35 Nucleated RBCs Cancelled 03/05/18 05:35 Differential Comment Manual differential 03/10/18 06:15 Atypical Lymphocytes Cancelled 03/05/18 05:35 Other Cell Type Cancelled 03/05/18 05:35 RBC Morphology See below 03/10/18 06:15 Polychromasia Present 03/02/18 07:00 Hypochromasia 3+ 03/10/18 06:15 Poikilocytosis 3+ 03/10/18 06:15 Basophilic Stippling Cancelled 03/05/18 05:35 Anisocytosis 3+ 03/10/18 06:15 Microcytosis 3+ 03/10/18 06:15 Macrocytosis Cancelled 03/05/18 05:35 Spherocytes Cancelled 03/05/18 05:35 Target Cells Cancelled 03/05/18 05:35 Tear Drop Cells 2+ 03/01/18 09:38 Ovalocytes 2+ 03/02/18 07:00 Stomatocytes Cancelled 03/05/18 05:35 [place] Bodies Cancelled 03/05/18 05:35 Sathya Cells Cancelled 03/05/18 05:35 Acanthocytes (Spur) Cancelled 03/05/18 05:35 Schistocytes Cancelled 03/05/18 05:35 PT 9.6 sec (9.3-11.0) 03/05/18 13:12 INR 1.0 (0.9-1.1) 03/05/18 13:12 Sample Site Left radial 03/14/18 11:03 pCO2 40 mmHg (34-47) 03/14/18 11:03 pO2 64 mmHg (83-108) L 03/14/18 11:03 O2 Saturation 93 % (94-98) L 03/14/18 11:03 ABG pH 7.16 (7.35-7.45) L* 03/14/18 11:03 ABG HCO3 14 mmol/L (22-28) L 03/14/18 11:03 ABG Total CO2 14 mmol/L (22-29) L 03/14/18 11:03 ABG Base Excess -14.5 mmol/L (-3-3) L 03/14/18 11:03 VBG pH 7.29 (7.32-7.43) L 03/17/18 06:45 VBG pCO2 51 mm/Hg (34-47) H 03/17/18 06:45 VBG pO2 57 mm/Hg (28-44) H 03/17/18 06:45 VBG HCO3 25 mmol/L (22-28) 03/17/18 06:45 VBG Total CO2 24 mmol/L (22-29) 03/17/18 06:45 VBG O2 Saturation 90 % (70-80) H 03/17/18 06:45 VBG Base Excess -1.9 mmol/L (-3-3) 03/17/18 06:45 FiO2 21 % 03/14/18 11:03 Sodium 137 mmol/L (136-145) 03/20/18 06:30 Potassium 5.0 mmol/L (3.5-5.1) 03/20/18 06:30 Chloride 104 mmol/L (98-107) 03/20/18 06:30 Carbon Dioxide 25.4 mmol/L (21.0-32.0) 03/20/18 06:30 Anion Gap 7.6 mmol/L (3-11) 03/20/18 06:30 BUN 50 mg/dL (7-18) H 03/20/18 06:30 Creatinine 2.68 mg/dL (0.70-1.30) H 03/20/18 06:30 Estimated GFR/1.73 m2 24.60 (mL/min/1.73m2) 03/20/18 06:30 Glucose 264 mg/dL (70-100) H 03/20/18 12:32 Lactate 0.5 mmol/L (0.6-1.4) L 03/14/18 17:22 Calcium 8.7 mg/dL (8.5-10.1) 03/20/18 06:30 Magnesium 1.9 mg/dL (1.8-2.4) 03/20/18 06:30 Total Bilirubin 0.2 mg/dL (0.2-1.0) 03/01/18 09:38 Conjugated Bilirubin 0.08 mg/dL (0.00-0.20) 03/01/18 09:38 AST 3 U/L (15-37) L 03/01/18 09:38 ALT 13 U/L (12-78) 03/01/18 09:38 Alkaline Phosphatase 273 U/L (46-116) H 03/01/18 09:38 Creatine Kinase 15 U/L (39-308) L 03/08/18 21:20 C-Reactive Protein 2.76 mg/dL (0.0-0.3) H 03/16/18 06:38 Total Protein 7.1 g/dL (6.4-8.2) 03/01/18 09:38 Albumin 2.3 g/dL (3.4-5.0) L 03/01/18 09:38 TSH 0.61 uIU/mL (0.358-3.74) 03/02/18 07:00 Urine Color Yellow (Yellow) 03/19/18 21:06 Urine Clarity Clear 03/19/18 21:06 Urine pH 5.5 (5-8) 03/19/18 21:06 Ur Specific Mio 1.010 (1.005-1.025) 03/19/18 21:06 Urine Protein Negative mg/dL (Negative) 03/19/18 21:06 Urine Ketones Negative mg/dL (Negative) 03/19/18 21:06 Urine Blood Negative (Negative) 03/19/18 21:06 Urine Nitrite Negative (Negative) 03/19/18 21:06 Urine Bilirubin Negative (Negative) 03/19/18 21:06 Urine Urobilinogen 0.2 EU/dL (Up TO 0.2) 03/19/18 21:06 Ur Leukocyte Esterase Negative (Negative) 03/19/18 21:06 Urine RBC Not Applicable 03/14/18 12:00 Urine WBC >50 HPF (0-5) 03/14/18 12:00 Ur Epithelial Cells Not Applicable 03/14/18 12:00 Urine Crystals Not Applicable 03/14/18 12:00 Urine Bacteria Not Applicable 03/14/18 12:00 Urine Casts 3-5 coarse granular LPF (Negative) 03/04/18 14:20 Urine Mucus Not Applicable 03/14/18 12:00 Urine Other Moderate yeast (Negative) 03/04/18 14:20 Ur Culture Indicated? C&s done as ordered 03/14/18 12:00 Urine Glucose Negative mg/dL (Negative) 03/19/18 21:06 Vancomycin Trough 23.4 ug/mL (10.0-20.0) H* 03/19/18 08:45
[2018-03-21] MEDS: Insulin Glargine 300 UNITS/3 ML PEN 60 UNITS SC (21:53)
--- NOTE | 2018-03-21 22:58 | NUR.NOTE ---
Nursing Note: Dressing change completed to patients right foot per MD orders. Patient tolerated procedure well.
[2018-03-21] MEDS: Melatonin 3 MG TAB 9 MG PO (23:54)
[2018-03-21] MEDS: risperiDONE 1 MG TAB 3 MG PO (23:55)
[2018-03-21] MEDS: traZODone 50 MG TAB PO (23:55)
[2018-03-21 23:58] VITALS: BP 142/62; PULSE 62; RESP 19; TEMP 37; O2SAT 97
[2018-03-22] MEDS: Normal Saline Flush 10 ML SYR IVP (03:44)
[2018-03-22] MEDS: Levothyroxine 75 MCG TAB 37.5 MCG PO (06:25)
[2018-03-22 07:00] LABS: Abs Immature Grans 0.13 k/cumm (0.0-0.09); Absolute Basophil Count 0.05 k/cumm (0.0-0.2); Absolute Neutrophil Count 10.61 k/cumm (1.2-6.7); Basophils % 0.4; Eosinophils % 5.7; HCT 32.3 % (40.0-50.0); Immature Grans % 0.9; Lymphocytes % 9.5; Mean Corpuscular Hemoglobin 23.8 pg (27.0-33.0); Mean Corpuscular Volume 76.7 fL (80-95); Mean Platelet Volume 9.2 fL (8.0-11.0); Monocytes % 6.3; Neutrophils % 77.2; Platelet Count 334 x1000/uL (130-400); RBC 4.21 m/cumm (4.50-6.00); White Blood Cell Count 13.74 k/cumm (4.4-10.8)
[2018-03-22 07:01] LABS: Absolute Eosinophil Count 0.78 k/cumm (0.0-0.7); Absolute Lymphocyte Count 1.31 k/cumm (1.2-3.4); Absolute Monocyte Count 0.87 k/cumm (0.11-0.7)
[2018-03-22 07:10] LABS: Anion Gap 8.2 mmol/L (3-11); BUN 58 mg/dL (7-18); CO2 23.8 mmol/L (21.0-32.0); CREATININE 2.29 mg/dL (0.70-1.30); Calcium 8.7 mg/dL (8.5-10.1); Chloride 105 mmol/L (98-107); Glucose 177 mg/dL (70-100); Potassium 4.6 mmol/L (3.5-5.1); Sodium 137 mmol/L (136-145)
[2018-03-22 07:50] VITALS: BP 130/67; PULSE 61; RESP 18; TEMP 36.7; O2SAT 98
[2018-03-22] MEDS: Heparin 5,000 UNITS/ML VIAL 5000 UNITS SC ×3 (08:35→23:53)
[2018-03-22] MEDS: Normal Saline Flush 10 ML SYR 20 ML IVP ×2 (08:36→20:00)
[2018-03-22] MEDS: Insulin Aspart 300 UNITS/3 ML PEN SC ×4 (08:36→21:43)
[2018-03-22] MEDS: Venlafaxine 37.5 MG CAPCR 75 MG PO (11:20)
[2018-03-22] MEDS: cloNIDine 0.1 MG TAB PO ×3 (11:20→19:59)
[2018-03-22] MEDS: Omeprazole 20 MG CAPCR PO (11:20)
[2018-03-22] MEDS: Multivitamin TAB 1 TAB PO (11:20)
[2018-03-22] MEDS: Gabapentin 300 MG CAP PO ×3 (11:20→20:03)
[2018-03-22] MEDS: Furosemide 20 MG TAB PO ×2 (11:21→16:23)
[2018-03-22] MEDS: predniSONE 20 MG TAB PO (11:21)
[2018-03-22] MEDS: Lactobacillus Acidophilus CAP 1 CAP PO ×3 (11:21→19:59)
[2018-03-22] MEDS: carBAMazepine 100 MG CHEW PO ×3 (11:21→19:59)
[2018-03-22] MEDS: amLODIPine 10 MG TAB PO (11:22)
[2018-03-22] MEDS: Metoprolol CR 25 MG TABCR PO (11:22)
[2018-03-22] MEDS: Terazosin 2 MG CAP 4 MG PO ×2 (11:22→19:59)
[2018-03-22] MEDS: hydrALAZINE 10 MG TAB PO ×3 (11:23→19:59)
[2018-03-22] MEDS: Cyanocobalamin 500 MCG TAB 1000 MCG PO (11:23)
[2018-03-22] MEDS: Magnesium Chloride 64 MG TABCR PO ×2 (11:23→19:58)
[2018-03-22] MEDS: Ascorbic Acid 500 MG TAB PO ×2 (11:23→19:59)
[2018-03-22] MEDS: Aspirin E.C. 81 MG TABEC PO ×2 (11:24→19:59)
[2018-03-22] MEDS: Nystatin POWDER 60 GM JAR TP ×2 (11:24→20:01)
[2018-03-22] MEDS: Ferrous Sulfate 325 MG TAB PO ×2 (11:24→19:59)
[2018-03-22] MEDS: Folic Acid 1 MG TAB PO (11:24)
[2018-03-22 11:45] VITALS: BP 136/74; PULSE 68; RESP 18; TEMP 36.8; O2SAT 96
--- NOTE | 2018-03-22 12:09 | PT.INNT ---
Date of service: 03/22/18 Time of Service: 11:30 PT Notes 03/22/18 I went into pt room several times. Brendan would not wake up for me. He did not wake for breakfast or for MD. Will check in with him tomorrow.
--- NOTE | 2018-03-22 13:30 | PDOC.CMPRO ---
- If Service Date Differs Date of service: 03/22/18 Time of Service: 13:30 Care Management Progress Note S/O: Brendan's antibiotics where completed on 03/21/18 he remains stable his WBC is elevated per provider related to his oral steroids. His vs remain stable and the plan will be for him to return to the [facility] on Friday. CM faxed updates to the [facility]. was present and states she will see Brendan at the facility upon his return tomorrow. A: 57 year old male admitted to [facility] 03/01/18 for Hyperglycemia, encephalopathy, suspected sepsis, pneumonia P: Isela of the [facility] reports DON: Meg shared recent concerns central to Brendan's labs and requested updated labs be faxed for their review on 03/22/18 prior to discharge coordination for Brendan's return on Friday(anticipated per MD). CM will continue to monitor clinical progress and support discharge planning considerations, Brendan will return to the [facility], [facility], prior to transferring to LTC as the [facility] is also his residence for the past eight years or so. He will require follow up with Dr. Ashford. Brendan will transport via [facility] Van coordinated by this fha underwriter.
[2018-03-22 16:19] VITALS: BP 136/70; PULSE 63; RESP 24; TEMP 37.1; O2SAT 93
--- NOTE | 2018-03-22 18:25 | W.PALLCONSUL ---
Date of service: 03/22/18 Time of Service: 10:25 History of Present Illness Chief Complaint: adrenal insufficiency, infection Narrative: Brendan is a 57-year-old man more times more time in the hospital been out of the hospital for the last 4 months. He has had multiple events including hypotension, adrenal insufficiency, NC cardiac arrest with CPR, amputation of toes, severe diabetes, chronic cholecystitis with drain placement, pulmonary hypertension etc. Prior to his last admission I had spoken to: Regarding goals of care. He was very clear he still wanted to be a full code and to do everything possible to prolong his life. I was asked by Dr. Ferguson to again address this issue as he is having more and more comorbidity. Perhaps his goals are not in keeping with reality. I went to see Brendan twice on 03/22/18. Both times he was sleeping both times I gently shook him called his name loudly. Consults Consult date: 03/22/18 Requesting physician: Priscila Canela Assessment and Plan (1) Pulmonary hypertension: Current visit: Yes Status: Chronic (2) Toxic metabolic encephalopathy: Current visit: Yes Status: Resolved (3) Chronic cholecystitis: Current visit: Yes Status: Acute (4) Adrenal insufficiency: Current visit: No Status: Acute (5) MRSA bacteremia: Current visit: No Status: Resolved (6) Palliative care encounter: Start date: 03/22/18 Start time: 09:46 Current visit: Yes Status: Acute I spoke at length to Dr. Aguilar and his nursing staff. Avery goal is to leave the nursing facility in May. It is doubtful that this will happen considering he is lived there for about 4 years. He is rarely out of bed. He is not self motivated to exercise walk and watch his diet. He now has several more comorbidities. We were unable to discuss his goals and also the reality of his present condition. Per staff he is supposed to return to the [facility] soon. I will see him at the [facility] for further palliative care discussions This document was created by [employer] voice recognition and may contain grammatical and translation errors. Review of Systems Review of Systems Unobtainable due to mental status [facility] Medical History MRSA bacteremia (Resolved) Diabetic foot ulcer (Chronic) Poorly controlled type 2 diabetes mellitus with circulatory disorder (Chronic) CKD (chronic kidney disease) (Chronic) Cardiopulmonary arrest with successful resuscitation (Resolved) Heme positive stool (Chronic) Pedal edema (Chronic) Chronic insomnia (Chronic) Anxiety (Chronic) Diabetes mellitus type 2, controlled (Chronic) Hypertension (Chronic) Chronic pain (Chronic) Hypothyroidism (Chronic) Obesity (Chronic) Back pain (Chronic 06/21/13) Inability to get out of bed (Chronic 06/21/13) Poor self care (Chronic 06/21/13) Chronic bipolar disorder (Chronic) CAD (coronary artery disease) (Chronic) Dyslipidemia (Chronic) Hypoandrogenism (Chronic) Rheumatoid arthritis (Chronic) Crohns disease (Chronic) Osteoarthritis of both knees (Chronic) Cholelithiasis (Chronic) Impaired mobility and ADLs (Chronic) Acute congestive heart failure (Chronic) Hemorrhagic cystitis (Chronic) Anemia (Chronic) Bipolar 1 disorder (Chronic) CAD (coronary artery disease) (Chronic) Chronic anxiety (Chronic) Chronic pain (Chronic) 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 Resp Effort & Inspection: normal respiratory effort Auscultation: clear to auscultation bilaterally Cardio Rate: regular rate Rhythm: regular rhythm GI Palpation: soft, no hepatosplenomegaly and other Percussion: other Results Last Vital Signs Temp 98.8 F 03/22/18 16:19 Pulse 63 03/22/18 16:19 Resp 24 03/22/18 16:19 BP 136/70 03/22/18 16:19 Pulse Ox 93 L 03/22/18 16:19 Labs : 03/23/18 06:50 03/23/18 06:50 Laboratory Results - last 24 hr 03/22/18 03/22/18 06:30 06:30 WBC 13.74 H RBC 4.21 L Hgb 10.0 L Hct 32.3 L MCV 76.7 L MCH 23.8 L MCHC 31.0 L RDW 20.0 H Plt Count 334 MPV 9.2 Immature Gran % 0.9 Neutrophils % 77.2 Lymphocytes % 9.5 Monocytes % 6.3 Eosinophils % 5.7 Basophils % 0.4 Absolute Neutrophils 10.61 H Absolute Lymphocytes 1.31 Absolute Monocytes 0.87 H Absolute Eosinophils 0.78 H Absolute Basophils 0.05 Sodium 137 Potassium 4.6 Chloride 105 Carbon Dioxide 23.8 Anion Gap 8.2 BUN 58 H Creatinine 2.29 H Estimated GFR/1.73 m2 29.50 Glucose 177 H D Calcium 8.7 Magnesium 2.0
--- NOTE | 2018-03-22 18:47 | W.PM.PROGNOT ---
Date of Service Date of service: 03/22/18 Time of Service: 18:47 Assessment and Plan (1) Adrenal insufficiency: Current visit: No Status: Acute Patient with acute adrenal insufficiency precipitated by missed doses of increased dose prednisone, resolved. Will require very slow taper, with a potential higher baseline dose of prednisone therapy. (2) 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 2 diabetes mellitus: Current visit: Yes Status: Ruled-out Non-healing diabetic foot ulcer, with Xray showing evidence of potential osteo of the right 5th metatarsal. S/p debridement on 03/06 with resection of the 5th MPJ - culture of the tissue grew MRSA and Proteus Mirabilis. Per discussion with podiatry Osteo was not confirmed by biopsy. Has received 2 weeks of broad spectrum antibiotics post debridement and resection - discontinued this morning. Consider further evaluation of the LEs as an outpatient to evaluate for likely PVD and poor perfusion in diabetic patient. (3) Chronic cholecystitis: Current visit: Yes Status: Acute Cholecystostomy drain was not changed [place] [facility] [place]05[place] - per discussion with IR, there would not have been a benefit to it from the stand point of decreasing infection risk, as long as the drain is functioning well and continues to drain. Will try to procure outpatient [facility] general surgery follow up for cholecystectomy prior to discharge. (4) HCAP (healthcare-associated pneumonia): Current visit: No Status: Resolved S/p 5 days of therapy with Vancomycin and Pip-Tazo. Unsure if this was a true diagnosis as repeat read of CXR and repeat imaging failed to show evidence of an infiltrate. However, Sputum culture with MRSA despite the fact that patient had been on lengthy treatment with Vancomycin for MRSA bacteremia in early January. (5) Acute on chronic kidney failure: Current visit: No Status: Resolved Resolved. Patient no longer on ARYA-I. Has lengthy history of significant hyperkalemia, and elevated K+ which he also experienced earlier this hospitalization, requiring additional dose of IV Diuretic and Kayexalate. Continue renal low potassium diet, renally dose medications, and monitor renal function. (6) Hyperkalemia: Current visit: No Status: Resolved Resolved. (7) DVT prophylaxis: Current visit: No Status: Acute SC Heparin (8) Advance directive on file: Current visit: Yes Status: Acute Full Code Subjective Interval history since last seen: 57 year old resident of the [facility], with a recent history of MRSA bacteremia on IV vancomycin, admitted from [facility] Emergency Department on 03/01 with a diagnosis of Health Care Aquired Pneumonia. Mr. Corley has been hospitalized here at [facility] with sepsis on numerous prior occasions. He has a history of Group C strep bacteremia and E. Fecalis UTI in the past, and following his discharge returned to the hospital septic and suffered a cardiopulmonary arrest necessitating a transfer to [facility] He was treated for Choleycystitis, and as he is not a surgical candidate, he was treated conservatively with a pigtail catheter and antibiotics. He is chronically a resident at the [facility]. His other medical history includes DM, Adrenal insufficiency secondary to chronic steroid use, RA, Crohn's disease s/p Colectomy, OA, CKD with prior JESUS and resultant hyperkalemia, HTN, CAD, hypothyroidism, Obesity, and chronic pain. He's had recurrent UTIs, and also has a history of a non-healing diabetic foot ulcer. The patient was send to the ED due to worsening lethargy and hyperglycemia as noted in his [facility]. While his initial CXR showed evidence of potential pneumonia vs. edema, subsequent read and repeat imaging showed no evidence of definitive acute process. His sputum did grow MRSA - of note, he has had a recent MRSA bacteremia that he had remained on Vancomycin for - he was unable to go through a KELLEE, but due to a persistent murmur was under long-term antibiotic therapy due to have ended on 03/10. Mr. Corley was initially maintained on Vancomycin and Pip-Tazo, underwent a debridement of his wound via Podiatry, with cultures growing MRSA and Proteus Mirabilis. He was also growing Staph Epidermidis on surgical culture. Although diagnosed with Osteo, this was not confirmed by bone biopsy, and as the patient underwent debridement and excision of the digit, he was treated with a 2 week course of antibiotics, concluded on 03/21. The patient had also developed hyperkalemia recently despite a stable creatinine, necessitating treatment with additional lasix and Kayexalate. His potassium is remains normal this morning. No other events reported. The patient feels well and without complaints. He is afebrile. Exam Narrative Exam Narrative: Exam Narrative: General: Patient appears comfortable, again found to be asleep but easily arousable, obese, AAOX3, NAD Neck: Supple CV: Regular, nontachycardic, S1S2 Pulmonary: Clear to auscultation bilaterally, no crackles, wheezing, or rhonchi Abdomen: + Bowel Sounds, soft, nontender, nondistended, obese in contour. Ileostomy and cholecystostomy drains noted. Vascular: B/l lower extremity edema and chronic hyperpigmentation Musculoskeletal: Right foot with bandage in place - appears c/d/i Psych: Normal mood and affect. Objective Objective Clinical Data: Abnormal lab results 03/22/18 03/22/18 Range/Units 06:30 06:30 WBC 13.74 H (4.4-10.8) k/cumm RBC 4.21 L (4.50-6.00) m/cumm Hgb 10.0 L (13.5-17.5) g/dL Hct 32.3 L (40.0-50.0) % MCV 76.7 L (80-95) fL MCH 23.8 L (27.0-33.0) pg MCHC 31.0 L (32.0-36.0) g/dL RDW 20.0 H (11.8-14.1) % Absolute Neutrophils 10.61 H (1.2-6.7) k/cumm Absolute Monocytes 0.87 H (0.11-0.7) k/cumm Absolute Eosinophils 0.78 H (0.0-0.7) k/cumm BUN 58 H (7-18) mg/dL Creatinine 2.29 H (0.70-1.30) mg/dL Glucose 177 H D (70-100) mg/dL Vital Signs Temperature 37.1 C 03/22/18 16:19 Temperature Source Temporal Artery Scan 03/22/18 16:19 Pulse 63 03/22/18 16:19 Pulse Rhythm Regular 03/22/18 08:00 Pulse 65 03/17/18 16:00 Respiratory Rate 24 03/22/18 16:19 Respiratory Effort Non-Labored 03/22/18 08:00 Respiratory Depth Normal 03/22/18 08:00 Respiratory Pattern Normal 03/22/18 08:00 Blood Pressure 136/70 03/22/18 16:19 Blood Pressure Mean 98 03/17/18 11:22 Blood Pressure Position Supine 03/17/18 13:00 Pulse Oximetry 93 L 03/22/18 16:19 Oxygen Delivery Method Room Air 03/22/18 16:19 Oxygen Flow Rate 0 03/22/18 16:19 Pain Level 4 03/21/18 20:14 Comment 03/14/18 10:58 Intake & Output 03/21/18 03/22/18 03/22/18 23:59 11:59 23:59 Intake Total 620 / 1310 720 / 720 Output Total 900 / 2430 2400 / 2600 200 / 2600 Balance -280 / -1120 -1680 / -1880 -200 / -1880 Weight 99.2 kg Intake: IV 20 / 40 320 / 320 Oral 600 / 1270 400 / 400 Output: Drainage 200 / 650 200 / 350 150 / 350 Right Upper Abdomen 200 / 650 200 / 350 150 / 350 Urine 500 / 1080 1000 / 1000 Stool 200 / 700 1200 / 1250 50 / 1250 Other: Urine Color Yellow Yellow Urine Appearance Clear Clear Urine Odor None Voiding Methods Urinal Urinal Laboratory Results WBC 13.74 k/cumm (4.4-10.8) H 03/22/18 06:30 RBC 4.21 m/cumm (4.50-6.00) L 03/22/18 06:30 Hgb 10.0 g/dL (13.5-17.5) L 03/22/18 06:30 Hct 32.3 % (40.0-50.0) L 03/22/18 06:30 MCV 76.7 fL (80-95) L 03/22/18 06:30 MCH 23.8 pg (27.0-33.0) L 03/22/18 06:30 MCHC 31.0 g/dL (32.0-36.0) L 03/22/18 06:30 RDW 20.0 % (11.8-14.1) H 03/22/18 06:30 Plt Count 334 x1000/uL (130-400) 03/22/18 06:30 MPV 9.2 fL (8.0-11.0) 03/22/18 06:30 Abs Immat Gran (auto) Cancelled 03/05/18 05:35 Immature Gran % 0.9 03/22/18 06:30 Neutrophils % 77.2 03/22/18 06:30 Lymphocytes % 9.5 03/22/18 06:30 Monocytes % 6.3 03/22/18 06:30 Eosinophils % 5.7 03/22/18 06:30 Basophils % 0.4 03/22/18 06:30 Absolute Neutrophils 10.61 k/cumm (1.2-6.7) H 03/22/18 06:30 Band Neutrophils 2.0 % 03/08/18 06:15 Absolute Lymphocytes 1.31 k/cumm (1.2-3.4) 03/22/18 06:30 Absolute Monocytes 0.87 k/cumm (0.11-0.7) H 03/22/18 06:30 Absolute Eosinophils 0.78 k/cumm (0.0-0.7) H 03/22/18 06:30 Absolute Basophils 0.05 k/cumm (0.0-0.2) 03/22/18 06:30 Metamyelocytes 1.0 % 03/10/18 06:15 Myelocytes 2.0 % 03/10/18 06:15 Promyelocytes Cancelled 03/05/18 05:35 Nucleated RBCs Cancelled 03/05/18 05:35 Differential Comment Manual differential 03/10/18 06:15 Atypical Lymphocytes Cancelled 03/05/18 05:35 Other Cell Type Cancelled 03/05/18 05:35 RBC Morphology See below 03/10/18 06:15 Polychromasia Present 03/02/18 07:00 Hypochromasia 3+ 03/10/18 06:15 Poikilocytosis 3+ 03/10/18 06:15 Basophilic Stippling Cancelled 03/05/18 05:35 Anisocytosis 3+ 03/10/18 06:15 Microcytosis 3+ 03/10/18 06:15 Macrocytosis Cancelled 03/05/18 05:35 Spherocytes Cancelled 03/05/18 05:35 Target Cells Cancelled 03/05/18 05:35 Tear Drop Cells 2+ 03/01/18 09:38 Ovalocytes 2+ 03/02/18 07:00 Stomatocytes Cancelled 03/05/18 05:35 [place] Bodies Cancelled 03/05/18 05:35 Sathya Cells Cancelled 03/05/18 05:35 Acanthocytes (Spur) Cancelled 03/05/18 05:35 Schistocytes Cancelled 03/05/18 05:35 PT 9.6 sec (9.3-11.0) 03/05/18 13:12 INR 1.0 (0.9-1.1) 03/05/18 13:12 Sample Site Left radial 03/14/18 11:03 pCO2 40 mmHg (34-47) 03/14/18 11:03 pO2 64 mmHg (83-108) L 03/14/18 11:03 O2 Saturation 93 % (94-98) L 03/14/18 11:03 ABG pH 7.16 (7.35-7.45) L* 03/14/18 11:03 ABG HCO3 14 mmol/L (22-28) L 03/14/18 11:03 ABG Total CO2 14 mmol/L (22-29) L 03/14/18 11:03 ABG Base Excess -14.5 mmol/L (-3-3) L 03/14/18 11:03 VBG pH 7.29 (7.32-7.43) L 03/17/18 06:45 VBG pCO2 51 mm/Hg (34-47) H 03/17/18 06:45 VBG pO2 57 mm/Hg (28-44) H 03/17/18 06:45 VBG HCO3 25 mmol/L (22-28) 03/17/18 06:45 VBG Total CO2 24 mmol/L (22-29) 03/17/18 06:45 VBG O2 Saturation 90 % (70-80) H 03/17/18 06:45 VBG Base Excess -1.9 mmol/L (-3-3) 03/17/18 06:45 FiO2 21 % 03/14/18 11:03 Sodium 137 mmol/L (136-145) 03/22/18 06:30 Potassium 4.6 mmol/L (3.5-5.1) 03/22/18 06:30 Chloride 105 mmol/L (98-107) 03/22/18 06:30 Carbon Dioxide 23.8 mmol/L (21.0-32.0) 03/22/18 06:30 Anion Gap 8.2 mmol/L (3-11) 03/22/18 06:30 BUN 58 mg/dL (7-18) H 03/22/18 06:30 Creatinine 2.29 mg/dL (0.70-1.30) H 03/22/18 06:30 Estimated GFR/1.73 m2 29.50 (mL/min/1.73m2) 03/22/18 06:30 Glucose 177 mg/dL (70-100) H D 03/22/18 06:30 Lactate 0.5 mmol/L (0.6-1.4) L 03/14/18 17:22 Calcium 8.7 mg/dL (8.5-10.1) 03/22/18 06:30 Magnesium 2.0 mg/dL (1.8-2.4) 03/22/18 06:30 Total Bilirubin 0.2 mg/dL (0.2-1.0) 03/01/18 09:38 Conjugated Bilirubin 0.08 mg/dL (0.00-0.20) 03/01/18 09:38 AST 3 U/L (15-37) L 03/01/18 09:38 ALT 13 U/L (12-78) 03/01/18 09:38 Alkaline Phosphatase 273 U/L (46-116) H 03/01/18 09:38 Creatine Kinase 15 U/L (39-308) L 03/08/18 21:20 C-Reactive Protein 2.76 mg/dL (0.0-0.3) H 03/16/18 06:38 Total Protein 7.1 g/dL (6.4-8.2) 03/01/18 09:38 Albumin 2.3 g/dL (3.4-5.0) L 03/01/18 09:38 TSH 0.61 uIU/mL (0.358-3.74) 03/02/18 07:00 Urine Color Yellow (Yellow) 03/19/18 21:06 Urine Clarity Clear 03/19/18 21:06 Urine pH 5.5 (5-8) 03/19/18 21:06 Ur Specific [place] 1.010 (1.005-1.025) 03/19/18 21:06 Urine Protein Negative mg/dL (Negative) 03/19/18 21:06 Urine Ketones Negative mg/dL (Negative) 03/19/18 21:06 Urine Blood Negative (Negative) 03/19/18 21:06 Urine Nitrite Negative (Negative) 03/19/18 21:06 Urine Bilirubin Negative (Negative) 03/19/18 21:06 Urine Urobilinogen 0.2 EU/dL (Up TO 0.2) 03/19/18 21:06 Ur Leukocyte Esterase Negative (Negative) 03/19/18 21:06 Urine RBC Not Applicable 03/14/18 12:00 Urine WBC >50 HPF (0-5) 03/14/18 12:00 Ur Epithelial Cells Not Applicable 03/14/18 12:00 Urine Crystals Not Applicable 03/14/18 12:00 Urine Bacteria Not Applicable 03/14/18 12:00 Urine Casts 3-5 coarse granular LPF (Negative) 03/04/18 14:20 Urine Mucus Not Applicable 03/14/18 12:00 Urine Other Moderate yeast (Negative) 03/04/18 14:20 Ur Culture Indicated? C&s done as ordered 03/14/18 12:00 Urine Glucose Negative mg/dL (Negative) 03/19/18 21:06 Vancomycin Trough 23.4 ug/mL (10.0-20.0) H* 03/19/18 08:45
--- NOTE | 2018-03-22 18:50 | PGE_ITS ---
Date of Service Date of service: 03/22/18 Time of Service: 18:47 Assessment and Plan (1) Adrenal insufficiency: Current visit: No Status: Acute Patient with acute adrenal insufficiency precipitated by missed doses of increased dose prednisone, resolved. Will require very slow taper, with a potential higher baseline dose of prednisone therapy. (2) 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 2 diabetes mellitus: Current visit: Yes Status: Ruled-out Non-healing diabetic foot ulcer, with Xray showing evidence of potential osteo of the right 5th metatarsal. S/p debridement on 03/06 with resection of the 5th MPJ - culture of the tissue grew MRSA and Proteus Mirabilis. Per discussion with podiatry Osteo was not confirmed by biopsy. Has received 2 weeks of broad spectrum antibiotics post debridement and resection - discontinued this morning. Consider further evaluation of the LEs as an outpatient to evaluate for likely PVD and poor perfusion in diabetic patient. (3) Chronic cholecystitis: Current visit: Yes Status: Acute Cholecystostomy drain was not changed at [facility] on 03/05/17 - per discussion with IR, there would not have been a benefit to it from the stand point of decreasing infection risk, as long as the drain is functioning well and continues to drain. Will try to procure outpatient [facility] general surgery follow up for cholecystectomy prior to discharge. (4) HCAP (healthcare-associated pneumonia): Current visit: No Status: Resolved S/p 5 days of therapy with Vancomycin and Pip-Tazo. Unsure if this was a true diagnosis as repeat read of CXR and repeat imaging failed to show evidence of an infiltrate. However, Sputum culture with MRSA despite the fact that patient had been on lengthy treatment with Vancomycin for MRSA bacteremia in early January. (5) Acute on chronic kidney failure: Current visit: No Status: Resolved Resolved. Patient no longer on ARYA-I. Has lengthy history of significant hyperkalemia, and elevated K+ which he also experienced earlier this hospitalization, requiring additional dose of IV Diuretic and Kayexalate. Continue renal low potassium diet, renally dose medications, and monitor renal function. (6) Hyperkalemia: Current visit: No Status: Resolved Resolved. (7) DVT prophylaxis: Current visit: No Status: Acute SC Heparin (8) Advance directive on file: Current visit: Yes Status: Acute Full Code Subjective Interval history since last seen: 57 year old resident of the [facility], with a recent history of MRSA bacteremia on IV vancomycin, admitted from [facility] Emergency Department on 03/01 with a diagnosis of Health Care Aquired Pneumonia. Mr. Corley has been hospitalized here at [facility] with sepsis on numerous prior occasions. He has a history of Group C strep bacteremia and E. Fecalis UTI in the past, and following his discharge returned to the hospital septic and suffer ed a cardiopulmonary arrest necessitating a transfer to [facility]. He was treated for Choleycystitis, and as he is not a surgical candidate, he was treated conservatively with a pigtail catheter and antibiotics. He is chronically a resident at the [facility]. His other medical history includes DM, Adrenal insufficiency secondary to chronic steroid use, RA, Crohn's disease s/p Colectomy, OA, CKD with prior JESUS and resultant hyperkalemia, HTN, CAD, hypothyroidism, Obesity, and chronic pain. He's had recurrent UTIs, and also has a history of a non-healing diabetic foot ulcer. The patient was send to the ED due to worsening lethargy and hyperglycemia as noted in his [facility]. While his initial CXR showed evidence of potential pneumonia vs. edema, subsequent read and repeat imaging showed no evidence of definitive acute process. His sputum did grow MRSA - of note, he has had a recent MRSA bacteremia that he had remained on Vancomycin for - he was unable to go through a KELLEE, but due to a persistent murmur was under long-term antibiotic therapy due to have ended on 03/10. Mr. Corley was initially maintained on Vancomycin and Pip-Tazo, underwent a debridement of his wound via Podiatry, with cultures growing MRSA and Proteus Mirabilis. He was also growing Staph Epidermidis on surgical culture. Although diagnosed with Osteo, this was not confirmed by bone biopsy, and as the patient underwent debridement and excision of the digit, he was treated with a 2 week course of antibiotics, concluded on 03/21. The patient had also developed hyperkalemia recently despite a stable creatinine, necessitating treatment with additional lasix and Kayexalate. His potassium is remains normal this morning. No other events reported. The patient feels well and without complaints. He is afebrile. Exam Narrative Exam Narrative: Exam Narrative: General: Patient appears comfortable, again found to be asleep but easily arousable, obese, AAOX3, NAD Neck: Supple CV: Regular, nontachycardic, S1S2 Pulmonary: Clear to auscultation bilaterally, no crackles, wheezing, or rhonchi Abdomen: + Bowel Sounds, soft, nontender, nondistended, obese in contour. Ileostomy and cholecystostomy drains noted. Vascular: B/l lower extremity edema and chronic hyperpigmentation Musculoskeletal: Right foot with bandage in place - appears c/d/i Psych: Normal mood and affect. Objective Objective Clinical Data: Abnormal lab results 03/22/18 03/22/18 Range/Units 06:30 06:30 WBC 13.74 H (4.4-10.8) k/cumm RBC 4.21 L (4.50-6.00) m/cumm Hgb 10.0 L (13.5-17.5) g/dL Hct 32.3 L (40.0-50.0) % MCV 76.7 L (80-95) fL MCH 23.8 L (27.0-33.0) pg MCHC 31.0 L (32.0-36.0) g/dL RDW 20.0 H (11.8-14.1) % Absolute Neutrophils 10.61 H (1.2-6.7) k/cumm Absolute Monocytes 0.87 H (0.11-0.7) k/cumm Absolute Eosinophils 0.78 H (0.0-0.7) k/cumm BUN 58 H (7-18) mg/dL Creatinine 2.29 H (0.70-1.30) mg/dL Glucose 177 H D (70-100) mg/dL Vital Signs Temperature 37.1 C 03/22/18 16:19 Temperature Source Temporal Artery Scan 03/22/18 16:19 Pulse 63 03/22/18 16:19 Pulse Rhythm Regular 03/22/18 08:00 Pulse 65 03/17/18 16:00 Respiratory Rate 24 03/22/18 16:19 Respiratory Effort Non-Labored 03/22/18 08:00 Respiratory Depth Normal 03/22/18 08:00 Respiratory Pattern Normal 03/22/18 08:00 Blood Pressure 136/70 03/22/18 16:19 Blood Pressure Mean 98 03/17/18 11:22 Blood Pressure Position Supine 03/17/18 13:00 Pulse Oximetry 93 L 03/22/18 16:19 Oxygen Delivery Method Room Air 03/22/18 16:19 Oxygen Flow Rate 0 03/22/18 16:19 Pain Level 4 03/21/18 20:14 Comment 03/14/18 10:58 Intake & Output 03/21/18 03/22/18 03/22/18 23:59 11:59 23:59 Intake Total 620 / 1310 720 / 720 Output Total 900 / 2430 2400 / 2600 200 / 2600 Balance -280 / -1120 -1680 / -1880 -200 / -1880 Weight 99.2 kg Intake: IV 20 / 40 320 / 320 Oral 600 / 1270 400 / 400 Output: Drainage 200 / 650 200 / 350 150 / 350 Right Upper Abdomen 200 / 650 200 / 350 150 / 350 Urine 500 / 1080 1000 / 1000 Stool 200 / 700 1200 / 1250 50 / 1250 Other: Urine Color Yellow Yellow Urine Appearance Clear Clear Urine Odor None Voiding Methods Urinal Urinal Laboratory Results WBC 13.74 k/cumm (4.4-10.8) H 03/22/18 06:30 RBC 4.21 m/cumm (4.50-6.00) L 03/22/18 06:30 Hgb 10.0 g/dL (13.5-17.5) L 03/22/18 06:30 Hct 32.3 % (40.0-50.0) L 03/22/18 06:30 MCV 76.7 fL (80-95) L 03/22/18 06:30 MCH 23.8 pg (27.0-33.0) L 03/22/18 06:30 MCHC 31.0 g/dL (32.0-36.0) L 03/22/18 06:30 RDW 20.0 % (11.8-14.1) H 03/22/18 06:30 Plt Count 334 x1000/uL (130-400) 03/22/18 06:30 MPV 9.2 fL (8.0-11.0) 03/22/18 06:30 Abs Immat Gran (auto) Cancelled 03/05/18 05:35 Immature Gran % 0.9 03/22/18 06:30 Neutrophils % 77.2 03/22/18 06:30 Lymphocytes % 9.5 03/22/18 06:30 Monocytes % 6.3 03/22/18 06:30 Eosinophils % 5.7 03/22/18 06:30 Basophils % 0.4 03/22/18 06:30 Absolute Neutrophils 10.61 k/cumm (1.2-6.7) H 03/22/18 06:30 Band Neutrophils 2.0 % 03/08/18 06:15 Absolute Lymphocytes 1.31 k/cumm (1.2-3.4) 03/22/18 06:30 Absolute Monocytes 0.87 k/cumm (0.11-0.7) H 03/22/18 06:30 Absolute Eosinophils 0.78 k/cumm (0.0-0.7) H 03/22/18 06:30 Absolute Basophils 0.05 k/cumm (0.0-0.2) 03/22/18 06:30 Metamyelocytes 1.0 % 03/10/18 06:15 Myelocytes 2.0 % 03/10/18 06:15 Promyelocytes Cancelled 03/05/18 05:35 Nucleated RBCs Cancelled 03/05/18 05:35 Differential Comment Manual differential 03/10/18 06:15 Atypical Lymphocytes Cancelled 03/05/18 05:35 Other Cell Type Cancelled 03/05/18 05:35 RBC Morphology See below 03/10/18 06:15 Polychromasia Present 03/02/18 07:00 Hypochromasia 3+ 03/10/18 06:15 Poikilocytosis 3+ 03/10/18 06:15 Basophilic Stippling Cancelled 03/05/18 05:35 Anisocytosis 3+ 03/10/18 06:15 Microcytosis 3+ 03/10/18 06:15 Macrocytosis Cancelled 03/05/18 05:35 Spherocytes Cancelled 03/05/18 05:35 Target Cells Cancelled 03/05/18 05:35 Tear Drop Cells 2+ 03/01/18 09:38 Ovalocytes 2+ 03/02/18 07:00 Stomatocytes Cancelled 03/05/18 05:35 [place] Bodies Cancelled 03/05/18 05:35 Sathya Cells Cancelled 03/05/18 05:35 Acanthocytes (Spur) Cancelled 03/05/18 05:35 Schistocytes Cancelled 03/05/18 05:35 PT 9.6 sec (9.3-11.0) 03/05/18 13:12 INR 1.0 (0.9-1.1) 03/05/18 13:12 Sample Site Left radial 03/14/18 11:03 pCO2 40 mmHg (34-47) 03/14/18 11:03 pO2 64 mmHg (83-108) L 03/14/18 11:03 O2 Saturation 93 % (94-98) L 03/14/18 11:03 ABG pH 7.16 (7.35-7.45) L* 03/14/18 11:03 ABG HCO3 14 mmol/L (22-28) L 03/14/18 11:03 ABG Total CO2 14 mmol/L (22-29) L 03/14/18 11:03 ABG Base Excess -14.5 mmol/L (-3-3) L 03/14/18 11:03 VBG pH 7.29 (7.32-7.43) L 03/17/18 06:45 VBG pCO2 51 mm/Hg (34-47) H 03/17/18 06:45 VBG pO2 57 mm/Hg (28-44) H 03/17/18 06:45 VBG HCO3 25 mmol/L (22-28) 03/17/18 06:45 VBG Total CO2 24 mmol/L (22-29) 03/17/18 06:45 VBG O2 Saturation 90 % (70-80) H 03/17/18 06:45 VBG Base Excess -1.9 mmol/L (-3-3) 03/17/18 06:45 FiO2 21 % 03/14/18 11:03 Sodium 137 mmol/L (136-145) 03/22/18 06:30 Potassium 4.6 mmol/L (3.5-5.1) 03/22/18 06:30 Chloride 105 mmol/L (98-107) 03/22/18 06:30 Carbon Dioxide 23.8 mmol/L (21.0-32.0) 03/22/18 06:30 Anion Gap 8.2 mmol/L (3-11) 03/22/18 06:30 BUN 58 mg/dL (7-18) H 03/22/18 06:30 Creatinine 2.29 mg/dL (0.70-1.30) H 03/22/18 06:30 Estimated GFR/1.73 m2 29.50 (mL/min/1.73m2) 03/22/18 06:30 Glucose 177 mg/dL (70-100) H D 03/22/18 06:30 Lactate 0.5 mmol/L (0.6-1.4) L 03/14/18 17:22 Calcium 8.7 mg/dL (8.5-10.1) 03/22/18 06:30 Magnesium 2.0 mg/dL (1.8-2.4) 03/22/18 06:30 Total Bilirubin 0.2 mg/dL (0.2-1.0) 03/01/18 09:38 Conjugated Bilirubin 0.08 mg/dL (0.00-0.20) 03/01/18 09:38 AST 3 U/L (15-37) L 03/01/18 09:38 ALT 13 U/L (12-78) 03/01/18 09:38 Alkaline Phosphatase 273 U/L (46-116) H 03/01/18 09:38 Creatine Kinase 15 U/L (39-308) L 03/08/18 21:20 C-Reactive Protein 2.76 mg/dL (0.0-0.3) H 03/16/18 06:38 Total Protein 7.1 g/dL (6.4-8.2) 03/01/18 09:38 Albumin 2.3 g/dL (3.4-5.0) L 03/01/18 09:38 TSH 0.61 uIU/mL (0.358-3.74) 03/02/18 07:00 Urine Color Yellow (Yellow) 03/19/18 21:06 Urine Clarity Clear 03/19/18 21:06 Urine pH 5.5 (5-8) 03/19/18 21:06 Ur Specific [place] 1.010 (1.005-1.025) 03/19/18 21:06 Urine Protein Negative mg/dL (Negative) 03/19/18 21:06 Urine Ketones Negative mg/dL (Negative) 03/19/18 21:06 Urine Blood Negative (Negative) 03/19/18 21:06 Urine Nitrite Negative (Negative) 03/19/18 21:06 Urine Bilirubin Negative (Negative) 03/19/18 21:06 Urine Urobilinogen 0.2 EU/dL (Up TO 0.2) 03/19/18 21:06 Ur Leukocyte Esterase Negative (Negative) 03/19/18 21:06 Urine RBC Not Applicable 03/14/18 12:00 Urine WBC >50 HPF (0-5) 03/14/18 12:00 Ur Epithelial Cells Not Applicable 03/14/18 12:00 Urine Crystals Not Applicable 03/14/18 12:00 Urine Bacteria Not Applicable 03/14/18 12:00 Urine Casts 3-5 coarse granular LPF (Negative) 03/04/18 14:20 Urine Mucus Not Applicable 03/14/18 12:00 Urine Other Moderate yeast (Negative) 03/04/18 14:20 Ur Culture Indicated? C&s done as ordered 03/14/18 12:00 Urine Glucose Negative mg/dL (Negative) 03/19/18 21:06 Vancomycin Trough 23.4 ug/mL (10.0-20.0) H* 03/19/18 08:45
[2018-03-22] MEDS: risperiDONE 1 MG TAB 3 MG PO (21:41)
[2018-03-22] MEDS: traZODone 50 MG TAB PO (21:42)
[2018-03-22 21:52] VITALS: BP 151/70; PULSE 61; RESP 18; TEMP 36.8; O2SAT 92
[2018-03-22] MEDS: Insulin Glargine 300 UNITS/3 ML PEN 60 UNITS SC (22:14)
[2018-03-22] MEDS: Melatonin 3 MG TAB 9 MG PO (23:52)
[2018-03-23 00:03] VITALS: BP 146/78; PULSE 58; RESP 18; TEMP 36.2; O2SAT 99
[2018-03-23 03:50] VITALS: BP 159/83; PULSE 61; RESP 17; TEMP 37.2; O2SAT 97
--- NOTE | 2018-03-23 04:18 | NUR.NOTE ---
Nursing Note: Pt ostomy bag exploded, cleansed and stoma in normal color, skin around is red. Pt not happy with appliance available at this time. Educated on skin care, have little insight on it. Denied of pain until this time. Call lights at reach.
[2018-03-23] MEDS: Levothyroxine 75 MCG TAB 37.5 MCG PO (05:49)
[2018-03-23] MEDS: Acetaminophen 325 MG TAB PO ×2 (07:06→14:45)
[2018-03-23 07:30] LABS: Abs Immature Grans 0.14 k/cumm (0.0-0.09); Absolute Basophil Count 0.03 k/cumm (0.0-0.2); Absolute Eosinophil Count 0.84 k/cumm (0.0-0.7); Absolute Monocyte Count 0.96 k/cumm (0.11-0.7); Absolute Neutrophil Count 11.72 k/cumm (1.2-6.7); Basophils % 0.2; Eosinophils % 5.6; HCT 33.9 % (40.0-50.0); HGB 10.6 g/dL (13.5-17.5); Immature Grans % 0.9; Lymphocytes % 8.6; Mean Corp. HGB Concentration 31.3 g/dL (32.0-36.0); Mean Corpuscular Hemoglobin 23.9 pg (27.0-33.0); Mean Corpuscular Volume 76.5 fL (80-95); Mean Platelet Volume 10.1 fL (8.0-11.0); Monocytes % 6.4; Neutrophils % 78.3; Platelet Count 344 x1000/uL (130-400); RBC 4.43 m/cumm (4.50-6.00); White Blood Cell Count 14.97 k/cumm (4.4-10.8)
[2018-03-23 07:31] VITALS: BP 140/75; PULSE 63; RESP 20; TEMP 36.2; O2SAT 94
[2018-03-23 07:35] LABS: Absolute Lymphocyte Count 1.29 k/cumm (1.2-3.4)
[2018-03-23 07:42] LABS: BUN 58 mg/dL (7-18); CREATININE 2.17 mg/dL (0.70-1.30); Calcium 8.9 mg/dL (8.5-10.1); Chloride 102 mmol/L (98-107); Estimated GFR 31.39 (mL/min/1.73m2); Glucose 189 mg/dL (70-100); Magnesium 2.1 mg/dL (1.8-2.4); Potassium 4.6 mmol/L (3.5-5.1); Sodium 136 mmol/L (136-145)
[2018-03-23] MEDS: Terazosin 2 MG CAP 4 MG PO ×2 (08:33→20:18)
[2018-03-23] MEDS: Cyanocobalamin 500 MCG TAB 1000 MCG PO (08:33)
[2018-03-23] MEDS: amLODIPine 10 MG TAB PO (08:34)
[2018-03-23] MEDS: Metoprolol CR 25 MG TABCR PO (08:34)
[2018-03-23] MEDS: Ferrous Sulfate 325 MG TAB PO ×2 (08:34→20:18)
[2018-03-23] MEDS: Magnesium Chloride 64 MG TABCR PO ×2 (08:34→20:18)
[2018-03-23] MEDS: Ascorbic Acid 500 MG TAB PO ×2 (08:34→20:18)
[2018-03-23] MEDS: Gabapentin 300 MG CAP PO ×3 (08:34→20:18)
[2018-03-23] MEDS: predniSONE 20 MG TAB PO (08:34)
[2018-03-23] MEDS: Aspirin E.C. 81 MG TABEC PO ×2 (08:34→20:18)
[2018-03-23] MEDS: Folic Acid 1 MG TAB PO (08:34)
[2018-03-23] MEDS: Multivitamin TAB 1 TAB PO (08:34)
[2018-03-23] MEDS: carBAMazepine 100 MG CHEW PO ×3 (08:34→20:18)
[2018-03-23] MEDS: Venlafaxine 37.5 MG CAPCR 75 MG PO (08:34)
[2018-03-23] MEDS: Omeprazole 20 MG CAPCR PO (08:34)
[2018-03-23] MEDS: cloNIDine 0.1 MG TAB PO ×3 (08:34→20:18)
[2018-03-23] MEDS: Furosemide 20 MG TAB PO ×2 (08:34→16:54)
[2018-03-23] MEDS: hydrALAZINE 10 MG TAB PO ×3 (08:35→20:17)
[2018-03-23] MEDS: Nystatin POWDER 60 GM JAR TP ×2 (08:35→20:19)
[2018-03-23] MEDS: Normal Saline Flush 10 ML SYR 20 ML IVP ×2 (08:35→20:19)
[2018-03-23] MEDS: Heparin 5,000 UNITS/ML VIAL 5000 UNITS SC ×3 (08:35→23:41)
[2018-03-23] MEDS: Lactobacillus Acidophilus CAP 1 CAP PO ×3 (08:35→20:17)
[2018-03-23] MEDS: Insulin Aspart 300 UNITS/3 ML PEN SC ×4 (08:36→21:54)
--- NOTE | 2018-03-23 10:29 | OT.INTREAT ---
Date of service: 03/23/18 Time of Service: 09:30 Occupational Therapy Notes Occupational Therapy Inpatient Treatment Note Date: 03/23/18 PRECAUTIONS: Fall, Contact, droplet precautions SUBJECTIVE: Pt was lying in bed when OT arrived. He reports that he believes he will return to the [facility] either today or tomorrow. OBJECTIVE: PAIN:no c/o pain BATHING: Upper Body: Able to (I) wash face, (B) forearms and hands. Lower Body: Educated pt on LE bathing to be performed in the sitting position where pt in able to reach in the frontal plane to wash his upper thighs. Pt verbalized understanding to this however reports that sometimes he feels lazy but agrees that this could be better managed in the sitting position as he has adequate core stability and hand control. Therapeutic Activities [id number]: Functional gross and fine motor control activities including crossing midline, dynamic functional reach in all directions in the frontal plane, increased fine motor stability when washing face, trained in body mechanics during ADLs while sitting in bed to increase functional dynamic (I). Pt demonstrated fair technique for (B) UE control, limited in the (R) UE due to contracture in elbow. ASSESSMENT: Pt demonstrates increased (I) in UE bathing routines. He requires vc throughout as pt most likely will not perform (I) unless cued to do so. He has demonstrated improved fine motor control with bathing routine and in hand manipulation techniques. Pt still has decreased AROM limiting his (I) in LE bathing however pt has improved his AROM to be able to functionally perform UE bathing. PLAN: Pt notes that he plans to return to the [facility] tomorrow. TREATMENT CODES/TIME: [id number], 15 minutes (09:30) [facility]
--- NOTE | 2018-03-23 10:38 | OTTR_ITS ---
Date of service: 03/23/18 Time of Service: 09:30 Occupational Therapy Notes Occupational Therapy Inpatient Treatment Note Date: 03/23/18 PRECAUTIONS: Fall, Contact, droplet precautions SUBJECTIVE: Pt was lying in bed when OT arrived. He reports that he believes he will return to the [facility] either today or tomorrow. OBJECTIVE: PAIN:no c/o pain BATHING: Upper Body: Able to (I) wash face, (B) forearms and hands. Lower Body: Educated pt on LE bathing to be performed in the sitting position where pt in able to reach in the frontal plane to wash his upper thighs. Pt verbalized understanding to this however reports that sometimes he feels lazy but agrees that this could be better managed in the sitting position as he has adequate core stability and hand control. Therapeutic Activities [id number]: Functional gross and fine motor control activities including crossing midline, dynamic functional reach in all directions in the frontal plane, increased fine motor stability when washing face, trained in body mechanics during ADLs while sitting in bed to increase functional dynamic (I). Pt demonstrated fair technique for (B) UE control, limited in the (R) UE due to contracture in elbow. ASSESSMENT: Pt demonstrates increased (I) in UE bathing routines. He requires vc throughout as pt most likely will not perform (I) unless cued to do so. He has demonstrated improved fine motor control with bathing routine and in hand manipulation techniques. Pt still has decreased AROM limiting his (I) in LE bathing however pt has improved his AROM to be able to functionally perform UE bathing. PLAN: Pt notes that he plans to return to the [facility] tomorrow. TREATMENT CODES/TIME: [id number], 15 minutes (09:30) [facility]
--- NOTE | 2018-03-23 10:49 | NUR.NOTE ---
Nursing Note: At 1040 on 03/23/18, this RN tried to call report on the pt. to the [facility]. This RN was connected to a woman at the [facility] named Isela, who informed RN that the pt. wasn't going to be readmitted to the [facility] today because they ...just don't have the space right now. Following the phone call, RN checked with the charge nurse and care management. Per care management, pt.'s discharge plan unclear at this time, and care management to continue talking to the [facility]. Care management to update nursing regarding pt.'s discharge plans once a clear plan is in place. RN will reassess as necessary.
[2018-03-23 11:46] VITALS: BP 139/72; PULSE 58; RESP 20; TEMP 36.4; O2SAT 93
--- NOTE | 2018-03-23 11:48 | PT.INTREAT ---
Date of service: 03/23/18 Time of Service: 11:48 PT Notes Inpatient Physical Therapy Treatment Note [facility] Date: 03/23/18 PRECAUTIONS: Fall, WBAT R, postop shoe R SUBJECTIVE: Brendan is in good spirits today, he is willing to participate in PT. OBJECTIVE: PAIN: Patient complains of buttock soreness BED MOBILITY/TRANSFERS Supine-sit: I Sit-stand: S Stand-sit: S Bed-Chair: S GAIT Assistive Device: FWW Weight bearing: WBAT R Assist: S Distance: 5 steps to chair THEREX: Patient completed a lower extremity strengthening program, in a seated position, as per flow sheet. ASSESSMENT: Patient tolerated session well without complaint. Patient would benefit from continued strengthening, globally, for improved mobility and improved activity tolerance. PLAN: Continue with PTs POC TREATMENT CODE/TIME: 20 minutes; [id number]
--- NOTE | 2018-03-23 15:08 | PDOC.CMPRO ---
Care Management Progress Note S/O: Brendan was medically cleared for discharge, CM coordinated transportation with [facility]. [facility] reported being unable to accept Brendan back, once again. Administration recommendations included requesting commitment for admission tomorrow. Dr. Bravo spoke with Dr. Horowitz. Brendan will return to the [facility] tomorrow per report. A: 57 year old male admitted to [facility] 03/01/18 for Hyperglycemia, encephalopathy, suspected sepsis, pneumonia P: Brendan will return to the [facility], [facility], prior to transferring to LTC as the [facility] is also his residence for the past eight years or so. He will require follow up with Dr. Ashford. Brendan will transport via [facility] coordinated by this staff writer.
--- NOTE | 2018-03-23 16:06 | W.PM.PROGNOT ---
Date of Service Date of service: 03/23/18 Time of Service: 16:06 Assessment and Plan (1) Adrenal insufficiency: Current visit: No Status: Acute Patient with acute adrenal insufficiency precipitated by missed doses of increased dose prednisone, resolved. Will require very slow taper, with a potential higher baseline dose of prednisone therapy. (2) 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 2 diabetes mellitus: Current visit: Yes Status: Ruled-out Non-healing diabetic foot ulcer, with Xray showing evidence of potential osteo of the right 5th metatarsal. S/p debridement on 03/06 with resection of the 5th MPJ - culture of the tissue grew MRSA and Proteus Mirabilis. Per discussion with podiatry Osteo was not confirmed by biopsy. Has received 2 weeks of broad spectrum antibiotics post debridement and resection. Consider further evaluation of the LEs as an outpatient to evaluate for likely PVD and poor perfusion in diabetic patient. (3) Chronic cholecystitis: Current visit: Yes Status: Acute Cholecystostomy drain was not changed at [facility] on 03/05/17 - per discussion with IR, there would not have been a benefit to it from the stand point of decreasing infection risk, as long as the drain is functioning well and continues to drain. Will try to procure outpatient [facility] general surgery follow up for cholecystectomy prior to discharge - however may ultimately be deemed a poor surgical candidate. (4) HCAP (healthcare-associated pneumonia): Current visit: No Status: Resolved S/p 5 days of therapy with Vancomycin and Pip-Tazo. Unsure if this was a true diagnosis as repeat read of CXR and repeat imaging failed to show evidence of an infiltrate. However, Sputum culture with MRSA despite the fact that patient had been on lengthy treatment with Vancomycin for MRSA bacteremia in early January. (5) Acute on chronic kidney failure: Current visit: No Status: Resolved Resolved. Patient no longer on ARYA-I. Has lengthy history of significant hyperkalemia, and elevated K+ which he also experienced earlier this hospitalization, requiring additional dose of IV Diuretic and Kayexalate. Continue renal low potassium diet, renally dose medications, and monitor renal function. (6) Hyperkalemia: Current visit: No Status: Resolved Resolved. (7) DVT prophylaxis: Current visit: No Status: Acute SC Heparin (8) Advance directive on file: Current visit: Yes Status: Acute Full Code (9) Discharge planning issues: Current visit: No Status: Acute Chronic resident of the [facility] - will transfer back when bed available. Subjective Interval history since last seen: 57 year old resident of the [facility], with a recent history of MRSA bacteremia on IV vancomycin, admitted from [facility] Emergency Department on 03/01 with a diagnosis of Health Care Aquired Pneumonia. Mr. Corley has been hospitalized here at [facility] with sepsis on numerous prior occasions. He has a history of Group C strep bacteremia and E. Fecalis UTI in the past, and following his discharge returned to the hospital septic and suffered a cardiopulmonary arrest necessitating a transfer to [facility]. He was treated for Choleycystitis, and as he is not a surgical candidate, he was treated conservatively with a pigtail catheter and antibiotics. He is chronically a resident at the [facility]. His other medical history includes DM, Adrenal insufficiency secondary to chronic steroid use, RA, Crohn's disease s/p Colectomy, OA, CKD with prior JESUS and resultant hyperkalemia, HTN, CAD, hypothyroidism, Obesity, and chronic pain. He's had recurrent UTIs, and also has a history of a non-healing diabetic foot ulcer. The patient was send to the ED due to worsening lethargy and hyperglycemia as noted in his [facility]. While his initial CXR showed evidence of potential pneumonia vs. edema, subsequent read and repeat imaging showed no evidence of definitive acute process. His sputum did grow MRSA - of note, he has had a recent MRSA bacteremia that he had remained on Vancomycin for - he was unable to go through a [facility], but due to a persistent murmur was under long-term antibiotic therapy due to have ended on 03/10. Mr. Corley was initially maintained on Vancomycin and Pip-Tazo, underwent a debridement of his wound via Podiatry, with cultures growing MRSA and Proteus Mirabilis. He was also growing Staph Epidermidis on surgical culture. Although diagnosed with Osteo, this was not confirmed by bone biopsy, and as the patient underwent debridement and excision of the digit, he was treated with a 2 week course of antibiotics, concluded on 03/21. The patient had also developed hyperkalemia during his hospital stay despite a stable creatinine, necessitating treatment with additional lasix and Kayexalate. His potassium remains normal, and his renal function is stable. No other events reported. The patient feels well and without complaints. He is afebrile. Exam Narrative Exam Narrative: Exam Narrative: General: Patient appears comfortable, again found to be asleep but easily arousable, obese, AAOX3, NAD Psych: Normal mood and affect. Objective Objective Clinical Data: Abnormal lab results 03/23/18 03/23/18 Range/Units 06:50 06:50 WBC 14.97 H (4.4-10.8) k/cumm RBC 4.43 L (4.50-6.00) m/cumm Hgb 10.6 L (13.5-17.5) g/dL Hct 33.9 L (40.0-50.0) % MCV 76.5 L (80-95) fL MCH 23.9 L (27.0-33.0) pg MCHC 31.3 L (32.0-36.0) g/dL RDW 20.0 H (11.8-14.1) % Absolute Neutrophils 11.72 H (1.2-6.7) k/cumm Absolute Monocytes 0.96 H (0.11-0.7) k/cumm Absolute Eosinophils 0.84 H (0.0-0.7) k/cumm BUN 58 H (7-18) mg/dL Creatinine 2.17 H (0.70-1.30) mg/dL Glucose 189 H (70-100) mg/dL Vital Signs Temperature 36.4 C L 03/23/18 11:46 Temperature Source Tympanic 03/23/18 11:46 Pulse 58 L 03/23/18 11:46 Pulse Rhythm Regular 03/23/18 08:34 Pulse 65 03/17/18 16:00 Respiratory Rate 20 03/23/18 11:46 Respiratory Effort Non-Labored 03/23/18 08:34 Respiratory Depth Normal 03/23/18 08:34 Respiratory Pattern Normal 03/23/18 08:34 Blood Pressure 139/72 03/23/18 11:46 Blood Pressure Mean 98 03/17/18 11:22 Blood Pressure Position Supine 03/17/18 13:00 Pulse Oximetry 93 L 03/23/18 11:46 Oxygen Delivery Method Room Air 03/23/18 11:46 Oxygen Flow Rate 0 03/23/18 11:46 Pain Level 4 03/23/18 14:45 Comment 03/14/18 10:58 Intake & Output 03/22/18 03/23/18 03/23/18 23:59 11:59 23:59 Intake Total 960 / 1680 1100 / 1580 480 / 1580 Output Total 900 / 3300 2350 / 3550 1200 / 3550 Balance 60 / -1620 -1250 / -1969 - / -1969 Weight 98.2 kg Intake: IV Oral 960 / 1360 1080 / 1560 480 / 1560 Output: Drainage 150 / 350 400 / 550 150 / 550 Right Upper Abdomen 150 / 350 400 / 550 150 / 550 Urine 450 / 1450 1200 / 1800 600 / 1800 Stool 300 / 1500 750 / 1200 450 / 1200 Other: Urine Color Yellow Yellow Yellow Urine Appearance Clear Clear Urine Odor Normal None Voiding Methods Urinal Urinal Urinal Laboratory Results WBC 14.97 k/cumm (4.4-10.8) H 03/23/18 06:50 RBC 4.43 m/cumm (4.50-6.00) L 03/23/18 06:50 Hgb 10.6 g/dL (13.5-17.5) L 03/23/18 06:50 Hct 33.9 % (40.0-50.0) L 03/23/18 06:50 MCV 76.5 fL (80-95) L 03/23/18 06:50 MCH 23.9 pg (27.0-33.0) L 03/23/18 06:50 MCHC 31.3 g/dL (32.0-36.0) L 03/23/18 06:50 RDW 20.0 % (11.8-14.1) H 03/23/18 06:50 Plt Count 344 x1000/uL (130-400) 03/23/18 06:50 MPV 10.1 fL (8.0-11.0) 03/23/18 06:50 Abs Immat Gran (auto) Cancelled 03/05/18 05:35 Immature Gran % 0.9 03/23/18 06:50 Neutrophils % 78.3 03/23/18 06:50 Lymphocytes % 8.6 03/23/18 06:50 Monocytes % 6.4 03/23/18 06:50 Eosinophils % 5.6 03/23/18 06:50 Basophils % 0.2 03/23/18 06:50 Absolute Neutrophils 11.72 k/cumm (1.2-6.7) H 03/23/18 06:50 Band Neutrophils 2.0 % 03/08/18 06:15 Absolute Lymphocytes 1.29 k/cumm (1.2-3.4) 03/23/18 06:50 Absolute Monocytes 0.96 k/cumm (0.11-0.7) H 03/23/18 06:50 Absolute Eosinophils 0.84 k/cumm (0.0-0.7) H 03/23/18 06:50 Absolute Basophils 0.03 k/cumm (0.0-0.2) 03/23/18 06:50 Metamyelocytes 1.0 % 03/10/18 06:15 Myelocytes 2.0 % 03/10/18 06:15 Promyelocytes Cancelled 03/05/18 05:35 Nucleated RBCs Cancelled 03/05/18 05:35 Differential Comment Manual differential 03/10/18 06:15 Atypical Lymphocytes Cancelled 03/05/18 05:35 Other Cell Type Cancelled 03/05/18 05:35 RBC Morphology See below 03/10/18 06:15 Polychromasia Present 03/02/18 07:00 Hypochromasia 3+ 03/10/18 06:15 Poikilocytosis 3+ 03/10/18 06:15 Basophilic Stippling Cancelled 03/05/18 05:35 Anisocytosis 3+ 03/10/18 06:15 Microcytosis 3+ 03/10/18 06:15 Macrocytosis Cancelled 03/05/18 05:35 Spherocytes Cancelled 03/05/18 05:35 Target Cells Cancelled 03/05/18 05:35 Tear Drop Cells 2+ 03/01/18 09:38 Ovalocytes 2+ 03/02/18 07:00 Stomatocytes Cancelled 03/05/18 05:35 [place] Bodies Cancelled 03/05/18 05:35 [place] Cells Cancelled 03/05/18 05:35 Acanthocytes (Spur) Cancelled 03/05/18 05:35 Schistocytes Cancelled 03/05/18 05:35 PT 9.6 sec (9.3-11.0) 03/05/18 13:12 INR 1.0 (0.9-1.1) 03/05/18 13:12 Sample Site Left radial 03/14/18 11:03 pCO2 40 mmHg (34-47) 03/14/18 11:03 pO2 64 mmHg (83-108) L 03/14/18 11:03 O2 Saturation 93 % (94-98) L 03/14/18 11:03 ABG pH 7.16 (7.35-7.45) L* 03/14/18 11:03 ABG HCO3 14 mmol/L (22-28) L 03/14/18 11:03 ABG Total CO2 14 mmol/L (22-29) L 03/14/18 11:03 ABG Base Excess -14.5 mmol/L (-3-3) L 03/14/18 11:03 VBG pH 7.29 (7.32-7.43) L 03/17/18 06:45 VBG pCO2 51 mm/Hg (34-47) H 03/17/18 06:45 VBG pO2 57 mm/Hg (28-44) H 03/17/18 06:45 VBG HCO3 25 mmol/L (22-28) 03/17/18 06:45 VBG Total CO2 24 mmol/L (22-29) 03/17/18 06:45 VBG O2 Saturation 90 % (70-80) H 03/17/18 06:45 VBG Base Excess -1.9 mmol/L (-3-3) 03/17/18 06:45 FiO2 21 % 03/14/18 11:03 Sodium 136 mmol/L (136-145) 03/23/18 06:50 Potassium 4.6 mmol/L (3.5-5.1) 03/23/18 06:50 Chloride 102 mmol/L (98-107) 03/23/18 06:50 Carbon Dioxide 23.0 mmol/L (21.0-32.0) 03/23/18 06:50 Anion Gap 11.0 mmol/L (3-11) 03/23/18 06:50 BUN 58 mg/dL (7-18) H 03/23/18 06:50 Creatinine 2.17 mg/dL (0.70-1.30) H 03/23/18 06:50 Estimated GFR/1.73 m2 31.39 (mL/min/1.73m2) 03/23/18 06:50 Glucose 189 mg/dL (70-100) H 03/23/18 06:50 Lactate 0.5 mmol/L (0.6-1.4) L 03/14/18 17:22 Calcium 8.9 mg/dL (8.5-10.1) 03/23/18 06:50 Magnesium 2.1 mg/dL (1.8-2.4) 03/23/18 06:50 Total Bilirubin 0.2 mg/dL (0.2-1.0) 03/01/18 09:38 Conjugated Bilirubin 0.08 mg/dL (0.00-0.20) 03/01/18 09:38 AST 3 U/L (15-37) L 03/01/18 09:38 ALT 13 U/L (12-78) 03/01/18 09:38 Alkaline Phosphatase 273 U/L (46-116) H 03/01/18 09:38 Creatine Kinase 15 U/L (39-308) L 03/08/18 21:20 C-Reactive Protein 2.76 mg/dL (0.0-0.3) H 03/16/18 06:38 Total Protein 7.1 g/dL (6.4-8.2) 03/01/18 09:38 Albumin 2.3 g/dL (3.4-5.0) L 03/01/18 09:38 TSH 0.61 uIU/mL (0.358-3.74) 03/02/18 07:00 Urine Color Yellow (Yellow) 03/19/18 21:06 Urine Clarity Clear 03/19/18 21:06 Urine pH 5.5 (5-8) 03/19/18 21:06 Ur Specific [place] 1.010 (1.005-1.025) 03/19/18 21:06 Urine Protein Negative mg/dL (Negative) 03/19/18 21:06 Urine Ketones Negative mg/dL (Negative) 03/19/18 21:06 Urine Blood Negative (Negative) 03/19/18 21:06 Urine Nitrite Negative (Negative) 03/19/18 21:06 Urine Bilirubin Negative (Negative) 03/19/18 21:06 Urine Urobilinogen 0.2 EU/dL (Up TO 0.2) 03/19/18 21:06 Ur Leukocyte Esterase Negative (Negative) 03/19/18 21:06 Urine RBC Not Applicable 03/14/18 12:00 Urine WBC >50 HPF (0-5) 03/14/18 12:00 Ur Epithelial Cells Not Applicable 03/14/18 12:00 Urine Crystals Not Applicable 03/14/18 12:00 Urine Bacteria Not Applicable 03/14/18 12:00 Urine Casts 3-5 coarse granular LPF (Negative) 03/04/18 14:20 Urine Mucus Not Applicable 03/14/18 12:00 Urine Other Moderate yeast (Negative) 03/04/18 14:20 Ur Culture Indicated? C&s done as ordered 03/14/18 12:00 Urine Glucose Negative mg/dL (Negative) 03/19/18 21:06 Vancomycin Trough 23.4 ug/mL (10.0-20.0) H* 03/19/18 08:45
--- NOTE | 2018-03-23 16:11 | PGE_ITS ---
Date of Service Date of service: 03/23/18 Time of Service: 16:06 Assessment and Plan (1) Adrenal insufficiency: Current visit: No Status: Acute Patient with acute adrenal insufficiency precipitated by missed doses of increased dose prednisone, resolved. Will require very slow taper, with a potential higher baseline dose of prednisone therapy. (2) 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 2 diabetes mellitus: Current visit: Yes Status: Ruled-out Non-healing diabetic foot ulcer, with Xray showing evidence of potential osteo of the right 5th metatarsal. S/p debridement on 03/06 with resection of the 5th MPJ - culture of the tissue grew MRSA and Proteus Mirabilis. Per discussion with podiatry Osteo was not confirmed by biopsy. Has received 2 weeks of broad spectrum antibiotics post debridement and resection. Consider further evaluation of the LEs as an outpatient to evaluate for likely PVD and poor perfusion in diabetic patient. (3) Chronic cholecystitis: Current visit: Yes Status: Acute Cholecystostomy drain was not changed at [facility] on 03/05/17 - per discussion with IR, there would not have been a benefit to it from the stand point of decreasing infection risk, as long as the drain is functioning well and continues to drain. Will try to procure outpatient [facility] general surgery follow up for cholecystectomy prior to discharge - however may ultimately be deemed a poor surgical candidate. (4) HCAP (healthcare-associated pneumonia): Current visit: No Status: Resolved S/p 5 days of therapy with Vancomycin and Pip-Tazo. Unsure if this was a true diagnosis as repeat read of CXR and repeat imaging failed to show evidence of an infiltrate. However, Sputum culture with MRSA despite the fact that patient had been on lengthy treatment with Vancomycin for MRSA bacteremia in early January. (5) Acute on chronic kidney failure: Current visit: No Status: Resolved Resolved. Patient no longer on ARYA-I. Has lengthy history of significant hyperkalemia, and elevated K+ which he also experienced earlier this hospitalization, requiring additional dose of IV Diuretic and Kayexalate. Continue renal low potassium diet, renally dose medications, and monitor renal function. (6) Hyperkalemia: Current visit: No Status: Resolved Resolved. (7) DVT prophylaxis: Current visit: No Status: Acute SC Heparin (8) Advance directive on file: Current visit: Yes Status: Acute Full Code (9) Discharge planning issues: Current visit: No Status: Acute Chronic resident of the [facility] - will transfer back when bed available. Subjective Interval history since last seen: 57 year old resident of the [facility], with a recent history of MRSA bacteremia on IV vancomycin, admitted from [facility] Emergency Department on 03/01 with a diagnosis of Health Care Aquired Pneumonia. Mr. Corley has been hospitalized here at [facility] with sepsis on numerous prior occasions. He has a history of Group C strep bacteremia and E. Fecalis UTI in the past, and following his discharge returned to the hospital septic and suffered a cardiopulmonary arrest necessitating a transfer to [facility]. He was treated for Choleycystitis, and as he is not a surgical candidate, he was treated conservatively with a pigtail catheter and antibiotics. He is chronically a resident at the [facility]. His other medical history includes DM, Adrenal insufficiency secondary to chronic steroid use, RA, Crohn's disease s/p Colectomy, OA, CKD with prior JESUS and resultant hyperkalemia, HTN, CAD, hypothyroidism, Obesity, and chronic pain. He's had recurrent UTIs, and also has a history of a non-healing diabetic foot ulcer. The patient was send to the ED due to worsening lethargy and hyperglycemia as noted in his Fpc. While his initial CXR showed evidence of potential pneumonia vs. edema, subsequent read and repeat imaging showed no evidence of definitive acute process. His sputum did grow MRSA - of note, he has had a rece nt MRSA bacteremia that he had remained on Vancomycin for - he was unable to go through a KELLEE, but due to a persistent murmur was under long-term antibiotic therapy due to have ended on 03/10. Mr. Corley was initially maintained on Vancomycin and Pip-Tazo, underwent a debridement of his wound via Podiatry, with cultures growing MRSA and Proteus Mirabilis. He was also growing Staph Epidermidis on surgical culture. Although diagnosed with Osteo, this was not confirmed by bone biopsy, and as the patient underwent debridement and excision of the digit, he was treated with a 2 week course of antibiotics, concluded on 03/21. The patient had also developed hyperkalemia during his hospital stay despite a stable creatinine, necessitating treatment with additional lasix and Kayexalate. His potassium remains normal, and his renal function is stable. No other events reported. The patient feels well and without complaints. He is afebrile. Exam Narrative Exam Narrative: Exam Narrative: General: Patient appears comfortable, again found to be asleep but easily arousable, obese, AAOX3, NAD Psych: Normal mood and affect. Objective Objective Clinical Data: Abnormal lab results 03/23/18 03/23/18 Range/Units 06:50 06:50 WBC 14.97 H (4.4-10.8) k/cumm RBC 4.43 L (4.50-6.00) m/cumm Hgb 10.6 L (13.5-17.5) g/dL Hct 33.9 L (40.0-50.0) % MCV 76.5 L (80-95) fL MCH 23.9 L (27.0-33.0) pg MCHC 31.3 L (32.0-36.0) g/dL RDW 20.0 H (11.8-14.1) % Absolute Neutrophils 11.72 H (1.2-6.7) k/cumm Absolute Monocytes 0.96 H (0.11-0.7) k/cumm Absolute Eosinophils 0.84 H (0.0-0.7) k/cumm BUN 58 H (7-18) mg/dL Creatinine 2.17 H (0.70-1.30) mg/dL Glucose 189 H (70-100) mg/dL Vital Signs Temperature 36.4 C L 03/23/18 11:46 Temperature Source Tympanic 03/23/18 11:46 Pulse 58 L 03/23/18 11:46 Pulse Rhythm Regular 03/23/18 08:34 Pulse 65 03/17/18 16:00 Respiratory Rate 20 03/23/18 11:46 Respiratory Effort Non-Labored 03/23/18 08:34 Respiratory Depth Normal 03/23/18 08:34 Respiratory Pattern Normal 03/23/18 08:34 Blood Pressure 139/72 03/23/18 11:46 Blood Pressure Mean 98 03/17/18 11:22 Blood Pressure Position Supine 03/17/18 13:00 Pulse Oximetry 93 L 03/23/18 11:46 Oxygen Delivery Method Room Air 03/23/18 11:46 Oxygen Flow Rate 0 03/23/18 11:46 Pain Level 4 03/23/18 14:45 Comment 03/14/18 10:58 Intake & Output 03/22/18 03/23/18 03/23/18 23:59 11:59 23:59 Intake Total 960 / 1680 1100 / 1580 480 / 1580 Output Total 900 / 3300 2350 / 3550 1200 / 3550 Balance 60 / -1620 -1250 / -1969 - / -1969 Weight 98.2 kg Intake: IV Oral 960 / 1360 1080 / 1560 480 / 1560 Output: Drainage 150 / 350 400 / 550 150 / 550 Right Upper Abdomen 150 / 350 400 / 550 150 / 550 Urine 450 / 1450 1200 / 1800 600 / 1800 Stool 300 / 1500 750 / 1200 450 / 1200 Other: Urine Color Yellow Yellow Yellow Urine Appearance Clear Clear Urine Odor Normal None Voiding Methods Urinal Urinal Urinal Laboratory Results WBC 14.97 k/cumm (4.4-10.8) H 03/23/18 06:50 RBC 4.43 m/cumm (4.50-6.00) L 03/23/18 06:50 Hgb 10.6 g/dL (13.5-17.5) L 03/23/18 06:50 Hct 33.9 % (40.0-50.0) L 03/23/18 06:50 MCV 76.5 fL (80-95) L 03/23/18 06:50 MCH 23.9 pg (27.0-33.0) L 03/23/18 06:50 MCHC 31.3 g/dL (32.0-36.0) L 03/23/18 06:50 RDW 20.0 % (11.8-14.1) H 03/23/18 06:50 Plt Count 344 x1000/uL (130-400) 03/23/18 06:50 MPV 10.1 fL (8.0-11.0) 03/23/18 06:50 Abs Immat Gran (auto) Cancelled 03/05/18 05:35 Immature Gran % 0.9 03/23/18 06:50 Neutrophils % 78.3 03/23/18 06:50 Lymphocytes % 8.6 03/23/18 06:50 Monocytes % 6.4 03/23/18 06:50 Eosinophils % 5.6 03/23/18 06:50 Basophils % 0.2 03/23/18 06:50 Absolute Neutrophils 11.72 k/cumm (1.2-6.7) H 03/23/18 06:50 Band Neutrophils 2.0 % 03/08/18 06:15 Absolute Lymphocytes 1.29 k/cumm (1.2-3.4) 03/23/18 06:50 Absolute Monocytes 0.96 k/cumm (0.11-0.7) H 03/23/18 06:50 Absolute Eosinophils 0.84 k/cumm (0.0-0.7) H 03/23/18 06:50 Absolute Basophils 0.03 k/cumm (0.0-0.2) 03/23/18 06:50 Metamyelocytes 1.0 % 03/10/18 06:15 Myelocytes 2.0 % 03/10/18 06:15 Promyelocytes Cancelled 03/05/18 05:35 Nucleated RBCs Cancelled 03/05/18 05:35 Differential Comment Manual differential 03/10/18 06:15 Atypical Lymphocytes Cancelled 03/05/18 05:35 Other Cell Type Cancelled 03/05/18 05:35 RBC Morphology See below 03/10/18 06:15 Polychromasia Present 03/02/18 07:00 Hypochromasia 3+ 03/10/18 06:15 Poikilocytosis 3+ 03/10/18 06:15 Basophilic Stippling Cancelled 03/05/18 05:35 Anisocytosis 3+ 03/10/18 06:15 Microcytosis 3+ 03/10/18 06:15 Macrocytosis Cancelled 03/05/18 05:35 Spherocytes Cancelled 03/05/18 05:35 Target Cells Cancelled 03/05/18 05:35 Tear Drop Cells 2+ 03/01/18 09:38 Ovalocytes 2+ 03/02/18 07:00 Stomatocytes Cancelled 03/05/18 05:35 [place] Bodies Cancelled 03/05/18 05:35 Sathya Cells Cancelled 03/05/18 05:35 Acanthocytes (Spur) Cancelled 03/05/18 05:35 Schistocytes Cancelled 03/05/18 05:35 PT 9.6 sec (9.3-11.0) 03/05/18 13:12 INR 1.0 (0.9-1.1) 03/05/18 13:12 Sample Site Left radial 03/14/18 11:03 pCO2 40 mmHg (34-47) 03/14/18 11:03 pO2 64 mmHg (83-108) L 03/14/18 11:03 O2 Saturation 93 % (94-98) L 03/14/18 11:03 ABG pH 7.16 (7.35-7.45) L* 03/14/18 11:03 ABG HCO3 14 mmol/L (22-28) L 03/14/18 11:03 ABG Total CO2 14 mmol/L (22-29) L 03/14/18 11:03 ABG Base Excess -14.5 mmol/L (-3-3) L 03/14/18 11:03 VBG pH 7.29 (7.32-7.43) L 03/17/18 06:45 VBG pCO2 51 mm/Hg (34-47) H 03/17/18 06:45 VBG pO2 57 mm/Hg (28-44) H 03/17/18 06:45 VBG HCO3 25 mmol/L (22-28) 03/17/18 06:45 VBG Total CO2 24 mmol/L (22-29) 03/17/18 06:45 VBG O2 Saturation 90 % (70-80) H 03/17/18 06:45 VBG Base Excess -1.9 mmol/L (-3-3) 03/17/18 06:45 FiO2 21 % 03/14/18 11:03 Sodium 136 mmol/L (136-145) 03/23/18 06:50 Potassium 4.6 mmol/L (3.5-5.1) 03/23/18 06:50 Chloride 102 mmol/L (98-107) 03/23/18 06:50 Carbon Dioxide 23.0 mmol/L (21.0-32.0) 03/23/18 06:50 Anion Gap 11.0 mmol/L (3-11) 03/23/18 06:50 BUN 58 mg/dL (7-18) H 03/23/18 06:50 Creatinine 2.17 mg/dL (0.70-1.30) H 03/23/18 06:50 Estimated GFR/1.73 m2 31.39 (mL/min/1.73m2) 03/23/18 06:50 Glucose 189 mg/dL (70-100) H 03/23/18 06:50 Lactate 0.5 mmol/L (0.6-1.4) L 03/14/18 17:22 Calcium 8.9 mg/dL (8.5-10.1) 03/23/18 06:50 Magnesium 2.1 mg/dL (1.8-2.4) 03/23/18 06:50 Total Bilirubin 0.2 mg/dL (0.2-1.0) 03/01/18 09:38 Conjugated Bilirubin 0.08 mg/dL (0.00-0.20) 03/01/18 09:38 AST 3 U/L (15-37) L 03/01/18 09:38 ALT 13 U/L (12-78) 03/01/18 09:38 Alkaline Phosphatase 273 U/L (46-116) H 03/01/18 09:38 Creatine Kinase 15 U/L (39-308) L 03/08/18 21:20 C-Reactive Protein 2.76 mg/dL (0.0-0.3) H 03/16/18 06:38 Total Protein 7.1 g/dL (6.4-8.2) 03/01/18 09:38 Albumin 2.3 g/dL (3.4-5.0) L 03/01/18 09:38 TSH 0.61 uIU/mL (0.358-3.74) 03/02/18 07:00 Urine Color Yellow (Yellow) 03/19/18 21:06 Urine Clarity Clear 03/19/18 21:06 Urine pH 5.5 (5-8) 03/19/18 21:06 Ur Specific [place] 1.010 (1.005-1.025) 03/19/18 21:06 Urine Protein Negative mg/dL (Negative) 03/19/18 21:06 Urine Ketones Negative mg/dL (Negative) 03/19/18 21:06 Urine Blood Negative (Negative) 03/19/18 21:06 Urine Nitrite Negative (Negative) 03/19/18 21:06 Urine Bilirubin Negative (Negative) 03/19/18 21:06 Urine Urobilinogen 0.2 EU/dL (Up TO 0.2) 03/19/18 21:06 Ur Leukocyte Esterase Negative (Negative) 03/19/18 21:06 Urine RBC Not Applicable 03/14/18 12:00 Urine WBC >50 HPF (0-5) 03/14/18 12:00 Ur Epithelial Cells Not Applicable 03/14/18 12:00 Urine Crystals Not Applicable 03/14/18 12:00 Urine Bacteria Not Applicable 03/14/18 12:00 Urine Casts 3-5 coarse granular LPF (Negative) 03/04/18 14:20 Urine Mucus Not Applicable 03/14/18 12:00 Urine Other Moderate yeast (Negative) 03/04/18 14:20 Ur Culture Indicated? C&s done as ordered 03/14/18 12:00 Urine Glucose Negative mg/dL (Negative) 03/19/18 21:06 Vancomycin Trough 23.4 ug/mL (10.0-20.0) H* 03/19/18 08:45
--- NOTE | 2018-03-23 16:27 | CMPROGNOTE_ITS ---
Care Management Progress Note S/O: Brendan was medically cleared for discharge, CM coordinated transportation with [facility]. [facility] reported being unable to accept Brendan back, once again. Administration recommendations included requesting commitment for admission tomorrow. Dr. Bravo spoke with Dr. Horowitz. Brendan will return to the [facility] tomorrow per report. A: 57 year old male admitted to [facility] 03/01/18 for Hyperglycemia, encephalopathy, suspected sepsis, pneumonia P: Brendan will return to the [facility], [facility], prior to transferring to LTC as the [facility] is also his residence for the past eight years or so. He will require follow up with Dr. Ashford. Brendan will transport via [facility] coordinated by this health underwriter.
[2018-03-23 16:42] VITALS: BP 150/65; PULSE 56; RESP 20; TEMP 37; O2SAT 92
--- NOTE | 2018-03-23 16:43 | INDS_ITS ---
Date of service: 03/23/18 Time of Service: 16:15 PT Notes Date: March 23, 2018 Referring Doctor: Priscila Canela MD PT Orders: PT CONSULT: eval and treat Precautions: Falls, Standard, Drop Treatment Dates: 03/17/18 - 03/23/18 Patient Profile/Admitting Diagnosis: Patient admitted with toxic metabolic encephalopathy. He is a resident of [facility], with complicated medical history. He's participated in skilled PT intervention for 10 sessions over the past 8 days, with several refusals during that time. PMHX: MRSA bacteremia; chronic adrenal insufficiency; RA with chronic steroid use; Crohn's disease, status post ileostomy; sepsis; history of cardiac arrest; cholecystitis, status post cholecystectomy drain Social History/Home Situation: Patient is a resident of [facility]. Per his report he walks short distances only, he estimates approximately 10 steps with use of wheeled walker. He does not manage stairs. Equipment Owned/DME: Wheeled walker, resides in long-term care facility Subjective: Patient is resting in bed. He states that he is agree to bed exercises only. He does not want to get up until after 2pm. Objective: General Observation: Resting in bed, IV right UE, catheter, ileostomy. Patient has several wounds throughout the lower extremities, in various stages of healing. His right foot is dressed. Mental Status: A and O x3 Pain: Denies pain currently ROM: Right Upper Extremity: Shoulder flexion 80 degrees. Elbow motion is limited to 95 degrees flexion, lacking at least 30 degrees of terminal extension. Good functional opening of the hand. Left Upper Extremity: Shoulder flexion 80 degrees. Elbow motion is within functional limits. Patient able to demonstrate full charging manipulator, although only 50% hand opening actively; passively he is able to achieve good functional opening of the hand. Right Lower Extremity: Patient has approximately 15-20 degree knee flexion contracture. Demonstrates ankle dorsiflexion to 0 degrees. Left Lower Extremity: Patient has approximately 15-20 degree knee flexion contracture. Demonstrates ankle dorsiflexion to 0 degrees. Strength: Right Upper Extremity: Shoulder flexion 3-/5. Biceps 4+/5. Triceps 4-/5. Research Associate Policy is weak but equal. Left Upper Extremity: Shoulder flexion 3-/5. Biceps 4+/5. Triceps 4-/5. Research Associate Policy is weak but equal. Right Lower Extremity: Hip flexion 4+/5. Quads 4+/5. Hamstrings 4/5. Ankle dorsiflexion 3/5. Left Lower Extremity: Hip flexion 4+/5. Quads 4+/5. Hamstrings 4/5. Ankle dorsiflexion 3/5. Bed Mobility/Transfers: Supine to sit: Independent with head of bed at 30 degrees Sit to stand: supervision with FWW Stand to sit: supervision with FWW Bed to chair: 3 steps to bedside recliner with use of FWW min assist (patient has consistently refused ambulation beyond this throughout treatment course) Gait:Refused- other than to bedside recliner Balance: Static Sitting: Normal Dynamic Sitting: Normal Static Standing: Fair Dynamic Standing: Poor Treatment: Today's session consisted of reevaluation, followed by instruction in therapeutic exercises as noted on flowsheet. Patient strongly refuses any transfers today, and refuses ambulation. Entirety of session was completed in supine position, with patient requiring significant cueing and encouragement throughout. Assessment: Patient is a 57 year old male referred to physical therapy services with the diagnosis of toxic metabolic encephalopathy. Patient has participated in 10 sessions of PT over the course of the past 8 days, with frequent refusals during that time. He is made limited gains in mobility, with primary objectives of PT intervention shifting to prevention of further decline due to prolonged immobilization and multiple medical comorbidities. Patient does have an anticipated discharge back to the [facility] scheduled for tomorrow, and at this point is appropriate for D/C from PT intervention in an acute care setting. Goals: Goals X1 week 1. Supine-Sit independent (MET) 2. Sit-Supine independent(MET) 3. Sit-Stand CG with upper extremity support to wheeled walker(MET) 4. Stand-Sit CG(MET) 5. Bed-Chair min assist with WW(MET) 6. Chair-Bed min assist with WW(MET) 7. Gait: 10' with WW and min A (not met) Plan of Care/Treatment Plan: D/C from PT in acute care setting. DISCHARGE RECOMMENDATIONS: Return to the [facility] with no equipment needs anticipated TREATMENT CODE/TIME: 25 minutes ([id number])
[2018-03-23 20:54] VITALS: BP 163/70; PULSE 57; RESP 18; TEMP 36.3; O2SAT 93
[2018-03-23] MEDS: risperiDONE 1 MG TAB 3 MG PO (21:52)
[2018-03-23] MEDS: Insulin Glargine 300 UNITS/3 ML PEN 60 UNITS SC (21:53)
[2018-03-23] MEDS: traZODone 50 MG TAB PO (21:53)
[2018-03-23] MEDS: Melatonin 3 MG TAB 9 MG PO (23:41)
[2018-03-24] VITALS (7 sets, daily range): BP systolic 152–181; BP diastolic 70–82; PULSE 62–72; RESP 17–18; TEMP 36.2–37.1; O2SAT 93–97
[2018-03-24] MEDS: Acetaminophen 325 MG TAB PO (00:12)
[2018-03-24] MEDS: Levothyroxine 75 MCG TAB 37.5 MCG PO (05:40)
[2018-03-24 07:23] LABS: HCT 33.8 % (40.0-50.0); HGB 10.5 g/dL (13.5-17.5); Mean Corp. HGB Concentration 31.1 g/dL (32.0-36.0); Mean Corpuscular Hemoglobin 23.9 pg (27.0-33.0); Mean Platelet Volume 10.2 fL (8.0-11.0); Platelet Count 302 x1000/uL (130-400); RBC 4.39 m/cumm (4.50-6.00); RBC Distribution Width 20.1 % (11.8-14.1); White Blood Cell Count 14.06 k/cumm (4.4-10.8)
[2018-03-24 07:34] LABS: Anion Gap 11.1 mmol/L (3-11); BUN 60 mg/dL (7-18); CO2 21.9 mmol/L (21.0-32.0); CREATININE 2.93 mg/dL (0.70-1.30); Chloride 102 mmol/L (98-107); Glucose 243 mg/dL (70-100); Magnesium 2.2 mg/dL (1.8-2.4); Potassium 5.1 mmol/L (3.5-5.1); Sodium 135 mmol/L (136-145)
[2018-03-24 08:51] LABS: Absolute Eosinophil Count 1.12 k/cumm (0.0-0.7); Absolute Lymphocyte Count 0.56 k/cumm (1.2-3.4); Absolute Monocyte Count 0.28 k/cumm (0.11-0.7); Absolute Neutrophil Count 12.09 k/cumm (1.2-6.7)
[2018-03-24 08:52] LABS: Diff Comment Manual Differential
--- NOTE | 2018-03-24 10:12 | OT.INDS ---
Date of service: 03/24/18 Time of Service: 09:25 Occupational Therapy Notes Occupational Therapy Inpatient Discharge Summary Date: 03/24/18 Dates of Service: 03/18/18-03/24/18 Referring Doctor:Priscila Canela MD OT Orders: Eval and Treat Precautions: Contact Precautions, Droplet Precautions, Fall Precautions PATIENT PROFILE/ADMITTING DIAGNOSIS: Pt is a 57 year old male who was admitted through the ER on 03/01/18 due to his diabetes, being lathargic and hyperglycemic. Pt was previously admitted to [facility] in January 2018. He had a decline in medical status and was recently in the ICU. He was seen for OT evaluation today and currently on Med Surg. Past Medical History: Diabetic neuropathy, diabetic foot ulcers, rheumatoid arthritis, osteoarthritis bilateral knees, sacral decubitus ulcer, chronic renal insufficiency, coronary artery disease, crohn's disease, s/p colectomy, anemia, urinary tract infection, dyslipidemia, hypoandrogenism, cholelithiasis, hypertension, bipolar Disorder, chronic back pain, lower extremity edema, obesity, diabetes mellitus, MRSA blood and urine. Social History/Home Situation: Pt resides at [facility]. He is currently Max (A) for ADLs but this has recently decline since November 2017. He reports that in November he was able to wash his own face (I), and help with ADL routines with moderate (A) throughout. He has occupational therapy services at [facility]. Equipment owned/DME: [facility] SUBJECTIVE: Pt was sitting on the side of his bed agreeable to OT session. He reports that he is going back to [facility] today but states he will most likely be back. OBJECTIVE: Mental Status: A&Ox3 Pain: no c/o pain ROM: Right Upper Extremity: Shoulder flexion to about 70 degrees. Elbow motion is limited to 90* flexion,Good functional opening of the hand. Left Upper Extremity: Shoulder flexion 80 degrees. Elbow motion is within functional limits. Patient able to demonstrate full egg producer, he uses a three jaw victor manuel pinch to lift containers on his tray and opening of containers. STRENGTH: Right Upper Extremity: Shoulder flexion 3-/5, elbow 4-/5, egg producer is weak but equal to (B) side. Left Upper Extremity:Shoulder flexion 3-/5, elbow 4-/5, egg producer is weak but equal to (B) side. BALANCE: Static sitting Good Dynamic Sitting Good SPECIAL TESTS: Daily Activity Limitations Standardized Measure [facility] AM -PAC ?6 clicks? Daily Activity Inpatient Short Form: Raw score: 14 Standardized score: 33.39 CMS score: 59.67% CMS modifier: CK INFORMED CONSENT/EDUCATION: Pt instructed in purpose of OT Consult and plan of care. ASSESSMENT: Patient is a 57-year-old male referred to occupational therapy services with diagnosis of lathargic and hyperglycemic after being admitted through the ER on 03/01/18 due to his diabetes he recently had a decline in medical status and was in the ICU in setting of Diabetic neuropathy, diabetic foot ulcers, rheumatoid arthritis, osteoarthritis bilateral knees, sacral decubitus ulcer, chronic renal insufficiency, coronary artery disease, crohn's disease, s/p colectomy, anemia, urinary tract infection, dyslipidemia, hypoandrogenism, cholelithiasis, hypertension, bipolar Disorder, chronic back pain, lower extremity edema, obesity, diabetes mellitus, MRSA blood and urine. Pt was seen over the course of 7 days and seen for 5 OT sessions. He plans to be discharged to [facility] which is where he resides on a crop puller basis. GOALS Goals x1 week in hospital setting 1. Dressing- Pt will be able to don hospital gown with min (A) and min vc (NOT MET) 2. Bathing- Pt will be able to (I) wash face, (B) UE and abdomen with min vc (MET) 3. Eating- Pt will be able to perform eating routine with min (A) for opening packages and (I) translation from plate to mouth (MET) PLAN OF CARE/TREATMENT PLAN: Discharged from skilled OT services DISCHARGE RECOMMENDATIONS Return to the [facility] when medically cleared per MD. TREATMENT TIME/MINUTES/CODES: [id number], 26 minutes (09:25) G Codes in the area of self- : washing oneself, toileting, dressing, eating and drinking, current status GO [id number] CK projected status GO [id number]. Discharge status (if discharging) GO [id number], Based on [facility] score 14, CMS score 59.67% Suzanne Javier OTR/L [facility]
--- NOTE | 2018-03-24 10:17 | OTDS_ITS ---
Date of service: 03/24/18 Time of Service: 09:25 Occupational Therapy Notes Occupational Therapy Inpatient Discharge Summary Date: 03/24/18 Dates of Service: 03/18/18-03/24/18 Referring Doctor:Priscila Canela MD OT Orders: Eval and Treat Precautions: Contact Precautions, Droplet Precautions, Fall Precautions PATIENT PROFILE/ADMITTING DIAGNOSIS: Pt is a 57 year old male who was admitted through the ER on 03/01/18 due to his diabetes, being lathargic and hyperglycemic. Pt was previously admitted to [facility] in January 2018. He had a decline in medical status and was recently in the ICU. He was seen for OT evaluation today and currently on Med Surg. Past Medical History: Diabetic neuropathy, diabetic foot ulcers, rheumatoid arthritis, osteoarthritis bilateral knees, sacral decubitus ulcer, chronic renal insufficiency, coronary artery disease, crohn's disease, s/p colectomy, anemia, urinary tract infection, dyslipidemia, hypoandrogenism, cholelithiasis, hypertension, bipolar Disorder, chronic back pain, lower extremity edema, obesity, diabetes mellitus, MRSA blood and urine. Social History/Home Situation: Pt resides at [facility]. He is currently Max (A) for ADLs but this has recently decline since November 2017. He reports that in November he was able to wash his own face (I), and help with ADL routines with moderate (A) throughout. He has occupational therapy services at [facility]. Equipment owned/DME: [facility] SUBJECTIVE: Pt was sitting on the side of his bed agreeable to OT session. He reports that he is going back to [facility] today but states he will most likely be back. OBJECTIVE: Mental Status: A&Ox3 Pain: no c/o pain ROM: Right Upper Extremity: Shoulder flexion to about 70 degrees. Elbow motion is limited to 90* flexion,Good functional opening of the hand. Left Upper Extremity: Shoulder flexion 80 degrees. Elbow motion is within functional limits. Patient able to demonstrate full gasket supervisor, he uses a three jaw victor manuel pinch to lift containers on his tray and opening of containers. STRENGTH: Right Upper Extremity: Shoulder flexion 3-/5, elbow 4-/5, gasket supervisor is weak but equal to (B) side. Left Upper Extremity:Shoulder flexion 3-/5, elbow 4-/5, gasket supervisor is weak but equal to (B) side. BALANCE: Static sitting Good Dynamic Sitting Good SPECIAL TESTS: Daily Activity Limitations Standardized Measure [facility] AM -PAC ?6 clicks? Daily Activity Inpatient Short Form: Raw score: 14 Standardized score: 33.39 CMS score: 59.67% CMS modifier: CK INFORMED CONSENT/EDUCATION: Pt instructed in purpose of OT Consult and plan of care. ASSESSMENT: Patient is a 57-year-old male referred to occupational therapy services with diagnosis of lathargic and hyperglycemic after being admitted through the ER on 03/01/18 due to his diabetes he recently had a decline in medical status and was in the ICU in setting of Diabetic neuropathy, diabetic foot ulcers, rheumatoid arthritis, osteoarthritis bilateral knees, sacral decubitus ulcer, chronic renal insufficiency, coronary artery disease, crohn's d isease, s/p colectomy, anemia, urinary tract infection, dyslipidemia, hypoandrogenism, cholelithiasis, hypertension, bipolar Disorder, chronic back pain, lower extremity edema, obesity, diabetes mellitus, MRSA blood and urine. Pt was seen over the course of 7 days and seen for 5 OT sessions. He plans to be discharged to [facility] which is where he resides on a full time staff interpreter basis. GOALS Goals x1 week in hospital setting 1. Dressing- Pt will be able to don hospital gown with min (A) and min vc (NOT MET) 2. Bathing- Pt will be able to (I) wash face, (B) UE and abdomen with min vc (MET) 3. Eating- Pt will be able to perform eating routine with min (A) for opening packages and (I) translation from plate to mouth (MET) PLAN OF CARE/TREATMENT PLAN: Discharged from skilled OT services DISCHARGE RECOMMENDATIONS Return to the [facility] when medically cleared per MD. TREATMENT TIME/MINUTES/CODES: [id number], 26 minutes (09:25) G Codes in the area of self- : washing oneself, toileting, dressing, eating and drinking, current status GO [id number] CK projected status GO [id number]. Discharge status (if discharging) GO [id number], Based on [facility] score 14, CMS score 59.67% Suzanne Javier OTR/L [facility]
--- NOTE | 2018-03-24 10:20 | W.PM.DS.N ---
Date of service: 03/24/18 Time of Service: 10:20 DS: Diagnosis Discharge Diagnosis (1) Adrenal insufficiency: Status: Acute (2) 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 2 diabetes mellitus: Status: Ruled-out (3) Chronic cholecystitis: Status: Acute (4) HCAP (healthcare-associated pneumonia): Status: Resolved (5) Acute on chronic kidney failure: Status: Resolved (6) Hyperkalemia: Status: Resolved Discharge Plan Disposition Patient Disposition: LEVEL III [facility] Condition: Improving Discharge Details Reason For Visit: HYPERGLYCEMIA,ENCEPHALOPATHY,SUSPECTED SEPSIS Admit Date/Time: 03/01/18 13:40 Admit Provider: Priscila Canela Attending Provider: Priscila Canela Primary Care Provider: Anne Horowitz [facility] Hospital Course Hospital Course: HPI: 57 year old resident of the [facility], with a recent history of MRSA bacteremia on IV vancomycin, admitted from [facility] Emergency Department on 03/01 with a diagnosis of Health Care Aquired Pneumonia, later found to have infection of a nonhealing diabetic foot ulcer. Mr. Corley has been hospitalized here at [facility] with sepsis on numerous prior occasions. He has a history of Group C strep and MRSA bacteremia, as well as E. Fecalis UTI in the past. Hesuffered a cardiopulmonary arrest necessitating a transfer to [facility]. He was treated for Choleycystitis, and as he is not a surgical candidate, he was treated conservatively with a pigtail catheter and antibiotics. He is chronically a resident at the [facility]. His other medical history includes DM, Adrenal insufficiency secondary to chronic steroid use, RA, Crohn's disease s/p Colectomy, OA, CKD with prior JESUS and resultant hyperkalemia, HTN, CAD, hypothyroidism, Obesity, and chronic pain. He's had recurrent UTIs, and also has a history of a non-healing diabetic foot ulcer. The patient was send to the ED due to worsening lethargy and hyperglycemia as noted in his [facility]. While his initial CXR showed evidence of potential pneumonia vs. edema, subsequent read and repeat imaging showed no evidence of definitive acute process. His sputum did grow MRSA - of note, he has had a recent MRSA bacteremia that he had remained on Vancomycin for - he was unable to go through a KELLEE, but due to a persistent murmur was under long-term antibiotic therapy that was scheduled to end on 03/10. Mr. Corley was initially maintained on Vancomycin and Pip-Tazo, underwent a debridement of his wound via Podiatry, with cultures growing MRSA and Proteus Mirabilis (also growing Staph Epidermidis on surgical culture). Although diagnosed with Osteo, this was not confirmed by bone biopsy, and as the patient underwent debridement and excision of the digit, he was treated with a 2 week course of antibiotics, concluded on 03/21. The patient had also developed hyperkalemia during his hospital stay despite a stable creatinine, necessitating treatment with additional lasix and Kayexalate. His potassium remains normal on a renal and low potassium diet, and his renal function has remained stable. He also had a course of significant adrenal insufficiency due to inadvertant holding of his daily steroids. No other events reported. The patient feels well and without complaints. He is afebrile. Hospital Course: (1) Adrenal insufficiency: Patient with acute adrenal insufficiency precipitated by missed doses of increased dose prednisone, resolved. Will require very slow taper, with a potential higher baseline dose of prednisone therapy. Currently on 20mg BID, with a prior baseline of 10mg daily. Would recommend a slow taper down to 20mg daily over the next week, with reevaluation of whether he requires high maintenance dosing that his prior 10mg. (2) 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 2 diabetes mellitus: Status: Ruled-out Non-healing diabetic foot ulcer, with Xray showing evidence of potential osteo of the right 5th metatarsal. S/p debridement on 03/06 with resection of the 5th MPJ - culture of the tissue grew MRSA and Proteus Mirabilis. Per discussion with podiatry Osteo was not confirmed by biopsy. Has received 2 weeks of broad spectrum antibiotics post debridement and resection. Consider further evaluation of the LEs as an outpatient to evaluate for likely PVD and poor perfusion in diabetic patient. Needs to follow-up in about 10 days with podiatry. (3) Chronic cholecystitis: Cholecystostomy drain was not changed at [facility] on 03/05/17 - per discussion with IR by the hospitalist, there would not have been a benefit to it from the stand point of decreasing infection risk, as long as the drain is functioning well and continues to drain, which it has. Recommend outpatient [facility] general surgery follow up for cholecystectomy if possible - however may ultimately be deemed a poor surgical candidate. (4) HCAP (healthcare-associated pneumonia): S/p 5 days of therapy with Vancomycin and Pip-Tazo initially. Unsure if this was a true diagnosis as repeat read of CXR and repeat imaging failed to show evidence of an infiltrate. However imaging while hospitalized on 03/14 showed likely infiltrates while patient remained on broad spectrum antibiotics, with repeat CXR showing improvement. No pulmonary symptoms at time of discharge. (5) Acute on chronic kidney failure: Resolved. Patient no longer on ARYA-I. Has lengthy history of significant hyperkalemia, and elevated K+ which he also experienced earlier this hospitalization, requiring additional dose of IV Diuretic and Kayexalate. Continue renal low potassium diet, renally dose medications, and monitor renal function nursing home. On the day of discharge the patient's creatinine did creep up without any change in nutrition or medication, with a K+ of 5.1. The patient does fluctuate with his creatinine quite a bit, and likely this is of no concern - will however recommend continuation of a low potassium renal diet, as well as a repeat BMP in 2 days time to ensure stability. (6) Hyperkalemia: Resolved. Plan as above. (7) DVT prophylaxis: Mr. Corley was maintained on SC Heparin. (8) Chronic Pruritis Unsure of etiology for this, but he was maintained on hypoallergenic bedding here along with topical Eucerin Cream and prn hydroxyzine with some effect. Recommend continuation of this regimen as an outpatient. (8) Advance directive on file: Full Code (9) Discharge planning issues: Chronic resident of the [facility] transfer back today. Home Meds and New Rx's Prescriptions: New prednisone 20 mg Tablet 20 mg PO BID Qty: 1 RF: 0 furosemide 20 mg Tablet 20 mg PO BID@0830,1600 Qty: 0 RF: 0 acidophilus-pectin, citrus 25 million cell -100 mg Tablet 1 cap PO TID Qty: 0 RF: 0 Continued loperamide 2 mg Capsule 2 mg PO QID PRNRF: 0 cyanocobalamin (vitamin B-12) 1,000 mcg Tablet 1,000 mcg PO DAILY RF: 0 aspirin [Aspirin Low Dose] 81 mg Tablet,Delayed Release (Dr/Ec) 81 mg PO BID RF: 0 risperidone 3 mg Tablet 3 mg PO HS RF: 0 carbamazepine 100 mg Tablet,Chewable 100 mg PO TID RF: 0 omeprazole 20 mg Capsule,Delayed Release(Dr/Ec) 20 mg PO DAILY RF: 0 folic acid 1 mg Tablet 1 mg PO DAILY RF: 0 clonidine HCl [Catapres] 0.1 mg Tablet 0.3 mg PO TID Qty: 0 RF: 0 amlodipine 5 mg Tablet 10 mg PO DAILY Qty: 0 RF: 0 ferrous sulfate 325 mg (65 mg iron) Tablet 325 mg PO BID Qty: 0 RF: 0 melatonin 3 mg Tablet Extended Release 9 mg PO DAILY@0000 Qty: 0 RF: 0 Lantus Solostar U-100 Insulin 100 unit/mL (3 mL) insulin pen 60 unit subcut DAILY RF: 0 trazodone 50 mg Tablet 50 mg PO HS RF: 0 levothyroxine 75 mcg Tablet 0.5 tab PO DAILY RF: 0 ascorbic acid (vitamin C) [Vitamin C] 250 mg Tablet 1 tab PO BID RF: 0 ergocalciferol (vitamin D2) [Vitamin D2] 50,000 unit Capsule See Rx Instructions .ROUTE .COMPLEX RF: 0 Centrum Complete 18-400 mg-mcg Tablet 1 tab PO DAILY RF: 0 Novolog Flexpen U-100 Insulin 100 unit/mL insulin pen subcut 0730,1130,1630 RF: 0 venlafaxine 75 mg Capsule,Extended Release 24hr 75 mg PO DAILY RF: 0 metoprolol succinate 25 mg Tablet Extended Release 24 Hr 25 mg PO DAILY RF: 0 acetaminophen [Tylenol] 325 mg Tablet 325 - 650 mg PO Q4H PRN PRNQty: 0 RF: 0 gabapentin 300 mg Capsule 300 mg PO TID Qty: 0 RF: 0 hydralazine 10 mg Tablet 10 mg PO TID Qty: 0 RF: 0 terazosin 2 mg Capsule 4 mg PO BID Qty: 0 RF: 0 hydroxyzine HCl 25 mg Tablet 25 mg PO Q6H PRN PRN (Reason: Itching) Qty: 0 RF: 0 magnesium chloride [Mag 64] 64 mg Tablet,Delayed Release (Dr/Ec) 64 mg PO BID Qty: 0 RF: 0 Discontinued furosemide 40 mg Tablet 40 mg PO DAILY RF: 0 furosemide [Lasix] 40 mg Tablet 40 mg PO DAILY RF: 0 vancomycin in 0.9 % sodium chl 500 mg/100 mL piggyback 1,000 mg IV Q48H RF: 0 prednisone 10 mg tablet 10 mg PO DAILY Qty: 28 RF: 0 Discharge Instructions Additional Instructions: Please ensure a kidney diet with LOW POTASSIUM Patient may benefit from Hypoallergenic Sheets and bedding Please recheck a BMP in 2 days to ensure stability of renal function and potassium Needs a 2 week follow-up with Dr. Ashford Needs follow-up with surgery at [facility] Stand Alone Forms: Nursing Discharge Form Referrals: Harris Ashford DPM [[facility] STAFF PHYSICIAN] - 04/06/18 1:00 pm () Activity:: Activity as Tolerated Equipment/Supplies:: No Equipment Needed Diet:: Renal, low potassium diet Discharge Orders Discharge Orders: Discharge Order (Routine); Ordered 03/24/18 Ordered By: Ariel Bravo Other Ambulatory Orders: Basic Metabolic Panel (Routine) Location: Determined by Patient Ordered By: Ariel Bravo DS: Data Vitals/I&O Vitals and I&O: Vital Signs Temperature 36.2 C L 03/24/18 07:45 Temperature Source Tympanic 03/24/18 07:45 Pulse 62 03/24/18 07:45 Pulse Rhythm Regular 03/23/18 20:58 Pulse 65 03/17/18 16:00 Respiratory Rate 18 03/24/18 07:45 Respiratory Effort Non-Labored 03/23/18 20:58 Respiratory Depth Normal 03/23/18 20:58 Respiratory Pattern Normal 03/23/18 20:58 Blood Pressure 158/70 H 03/24/18 07:45 Blood Pressure Mean 98 03/17/18 11:22 Blood Pressure Position Supine 03/17/18 13:00 Pulse Oximetry 96 03/24/18 09:44 Oxygen Delivery Method Room Air 03/24/18 09:44 Oxygen Flow Rate 0 03/24/18 09:44 Pain Level 0 03/24/18 07:45 Comment 03/14/18 10:58 Intake & Output 03/23/18 03/23/18 03/24/18 11:59 23:59 11:59 Intake Total 1100 / 1820 720 / 1820 Output Total 2350 / 4500 2150 / 4500 1650 / 1650 Balance -1250 / -2680 -1430 / -2680 -1650 / -1650 Weight 98.2 kg 97.5 kg Intake: IV Oral 1080 / 1800 720 / 1800 Output: Drainage 400 / 550 150 / 550 400 / 400 Right Upper Abdomen 400 / 550 150 / 550 400 / 400 Urine 1200 / 2400 1200 / 2400 300 / 300 Stool 750 / 1550 800 / 1550 950 / 950 Other: Urine Color Yellow Yellow Yellow Urine Appearance Clear Clear Clear Urine Odor None Strong Comment Void x1 in the urinal. Voiding Methods Urinal Urinal Urinal Completed studies during hospitalization [Text1]: EXAM: XR Chest, 1 View EXAM DATE/TIME: 03/01/2018 1:42 PM CLINICAL HISTORY: 57 years old, male; Signs and symptoms; Other: ? Pna TECHNIQUE: XR of the chest, 1 view. COMPARISON: CR XR CHEST 2V PA LATERAL 02/04/2018 10:11 AM FINDINGS: Tubes, catheters and devices: Right PICC line tip over the atriocaval junction. Lungs: Borderline interstitial pattern suggesting pulmonary interstitial edema and/or interstitial pneumonia. Pleural space: Unremarkable. No pleural effusion. No pneumothorax. Heart/Mediastinum: Unremarkable. No cardiomegaly. Bones/joints: Dextroscoliosis. IMPRESSION: 1. Right PICC line tip over the atriocaval junction. 2. Borderline interstitial pattern suggesting pulmonary interstitial edema and/or interstitial pneumonia. Exam(s) a RAD:XR foot RT complete SYMPTOMS/DIAGNOSIS: ULCER OVER DISTAL PHALANX OF HALLUX AND 5TH METATARSAL HEAD RIGHT FOOT: Three views. Comparison is 12/21/13. There is cortical disruption on the plantar surface of the head of the right fifth metatarsal. The possibility of an osteomyelitis can not be excluded. There are also hammer toe deformities of the second through fifth toes. The interphalangeal joint of the great toe was held in flexion. No destructive changes, fracture or dislocation is seen in this region to suggest osteomyelitis. The bones appear osteopenic. No suspicious lytic or sclerotic lesions are seen. No radiopaque foreign bodies are seen in the soft tissues. IMPRESSION: 1. Findings suggestive of cortical destruction involving the plantar surface of the head of the right fifth metatarsal raising the question of osteomyelitis. 2. Chronic changes of the foot as described above. 3. No radiopaque findings to suggest osteomyelitis of the great toe. Exam(s) 03/04 a RAD:XR portable chest AP SYMPTOMS/DIAGNOSIS: F/U PNEUMONIA PORTABLE CHEST: Comparison is 03/01/18. There is poor inspiration. The heart size and pulmonary vasculature are within normal limits. No focal consolidating infiltrates, effusions or pneumothoraces are identified. There is a right PICC line in stable position. IMPRESSION: No definite acute pulmonary process. Exam(s) 03/14 a RAD:XR portable chest AP SYMPTOM/DIAGNOSIS: SOB PORTABLE AP CHEST: Frontal view was obtained. The study is limited due to patient positioning and lack of cooperation. The heart appears mildly enlarged with mild prominent vasculature. There is blunting of the costophrenic angle suggesting small pleural effusions. There also appear to be increased lung markings in the right upper lobe and left lower lower. IMPRESSION: Findings which may represent pneumonia versus congestive heart failure. Please correlate clinically. Small bilateral pleural effusions. Exam(s) a US:US echocardiogram *[facility]* *[facility]* [address] [place] [address] Date of study: 03/16/2018 Transthoracic Echocardiography M-mode, complete 2D, complete spectral Doppler, and color Doppler *STUDY CONCLUSIONS* Impressions: There are no typical features of vegetative endocarditis. However, this diagnosis cannot be excluded on the basis of this transthoracic study. Consider transesophageal echocardiography, if clinically indicated, for superior assessment of valve anatomy. Summary: 1. Left ventricle: The cavity size was normal. Wall thickness was increased in a pattern of moderate LVH. Systolic function was hyperdynamic. The estimated ejection fraction was 65-70%. Some parameters suggest diastolic dysfunction. There was no evidence of elevated ventricular filling pressure by Doppler parameters. 2. Mitral valve: There was mild regurgitation. 3. Left atrium: The atrium was mildly dilated. 4. Right ventricle: The cavity size was normal. Wall thickness was mildly increased. Systolic function was normal. 5. Right atrium: The atrium was mildly dilated. 6. Atrial septum: No defect or patent foramen ovale was identified. 7. Pulmonary arteries: Pulmonary systolic pressure was in the range of 75mm Hg to 85mm Hg. 8. Inferior vena cava: The vessel was patent and dilated. The respirophasic diameter changes were normal. RAP estimated 5-10 mmHG. Exam(s) 03/17 a RAD:XR portable chest AP SYMPTOM/DIAGNOSIS: F/U PNEUMONIA PORTABLE AP CHEST: When compared with the 03/14 examination, there has been evident clearing of the lungs. There is nothing to suggest a pleural effusion. The heart is top limits of normal in size. SUMMARY: Interval improvement is demonstrated when compared with a previous examination from 03/14/18. Labs on day of discharge: Labs from last 24 hours 03/24/18 03/24/18 06:30 06:30 WBC 14.06 H RBC 4.39 L Hgb 10.5 L Hct 33.8 L MCV 77.0 L MCH 23.9 L MCHC 31.1 L RDW 20.1 H Plt Count 302 MPV 10.2 Immature Gran % See Differential Neutrophils % 86.0 Lymphocytes % 4.0 Monocytes % 2.0 Eosinophils % 8.0 Basophils % 0.0 Absolute Neutrophils 12.09 H Absolute Lymphocytes 0.56 L Absolute Monocytes 0.28 Absolute Eosinophils 1.12 H Absolute Basophils 0.00 Differential Comment Manual differential RBC Morphology Normal Sodium 135 L Potassium 5.1 Chloride 102 Carbon Dioxide 21.9 Anion Gap 11.1 H BUN 60 H Creatinine 2.93 H D Estimated GFR/1.73 m2 22.20 Glucose 243 H Calcium 9.0 Magnesium 2.2 Preliminary micro results at discharge 03/20/18 21:55 Blood Culture - Preliminary Blood NO GROWTH 72 HOURS 03/20/18 21:23 Blood Culture - Preliminary Blood NO GROWTH 72 HOURS [facility] Medical History MRSA bacteremia (Resolved) Diabetic foot ulcer (Chronic) Poorly controlled type 2 diabetes mellitus with circulatory disorder (Chronic) CKD (chronic kidney disease) (Chronic) Cardiopulmonary arrest with successful resuscitation (Resolved) Heme positive stool (Chronic) Pedal edema (Chronic) Chronic insomnia (Chronic) Anxiety (Chronic) Diabetes mellitus type 2, controlled (Chronic) Hypertension (Chronic) Chronic pain (Chronic) Hypothyroidism (Chronic) Obesity (Chronic) Back pain (Chronic 06/21/13) Inability to get out of bed (Chronic 06/21/13) Poor self care (Chronic 06/21/13) Chronic bipolar disorder (Chronic) CAD (coronary artery disease) (Chronic) Dyslipidemia (Chronic) Hypoandrogenism (Chronic) Rheumatoid arthritis (Chronic) Crohns disease (Chronic) Osteoarthritis of both knees (Chronic) Cholelithiasis (Chronic) Impaired mobility and ADLs (Chronic) Acute congestive heart failure (Chronic) Hemorrhagic cystitis (Chronic) Anemia (Chronic) Bipolar 1 disorder (Chronic) CAD (coronary artery disease) (Chronic) Chronic anxiety (Chronic) Chronic pain (Chronic) 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) Dyslipidemia (Chronic) Hypertension (Chronic) Surgical History Arthroplasty of knee (Resolved 03/18/12) Fracture, Open Treatment (Resolved) Social History housing: long-term Smoking/Tobacco Use Status: Never
[2018-03-24] MEDS: Heparin 5,000 UNITS/ML VIAL 5000 UNITS SC (10:23)
[2018-03-24] MEDS: Insulin Aspart 300 UNITS/3 ML PEN SC ×2 (10:23→11:40)
[2018-03-24] MEDS: amLODIPine 10 MG TAB PO (10:24)
[2018-03-24] MEDS: Venlafaxine 37.5 MG CAPCR 75 MG PO (10:24)
[2018-03-24] MEDS: Gabapentin 300 MG CAP PO (10:24)
[2018-03-24] MEDS: Folic Acid 1 MG TAB PO (10:24)
[2018-03-24] MEDS: Lactobacillus Acidophilus CAP 1 CAP PO (10:24)
[2018-03-24] MEDS: Terazosin 2 MG CAP 4 MG PO (10:24)
[2018-03-24] MEDS: Multivitamin TAB 1 TAB PO (10:24)
[2018-03-24] MEDS: Normal Saline Flush 10 ML SYR 20 ML IVP (10:24)
[2018-03-24] MEDS: Aspirin E.C. 81 MG TABEC PO (10:25)
[2018-03-24] MEDS: cloNIDine 0.1 MG TAB PO (10:25)
[2018-03-24] MEDS: Omeprazole 20 MG CAPCR PO (10:25)
[2018-03-24] MEDS: Metoprolol CR 25 MG TABCR PO (10:25)
[2018-03-24] MEDS: Ferrous Sulfate 325 MG TAB PO (10:25)
[2018-03-24] MEDS: Cyanocobalamin 500 MCG TAB 1000 MCG PO (10:25)
[2018-03-24] MEDS: carBAMazepine 100 MG CHEW PO (10:25)
[2018-03-24] MEDS: Magnesium Chloride 64 MG TABCR PO (10:25)
[2018-03-24] MEDS: hydrALAZINE 10 MG TAB PO (10:25)
[2018-03-24] MEDS: Ascorbic Acid 500 MG TAB PO (10:26)
[2018-03-24] MEDS: Nystatin POWDER 60 GM JAR TP (10:32)
--- NOTE | 2018-03-24 10:35 | DSE_ITS ---
Date of service: 03/24/18 Time of Service: 10:20 DS: Diagnosis Discharge Diagnosis (1) Adrenal insufficiency: Status: Acute (2) 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 2 diabetes mellitus: Status: Ruled-out (3) Chronic cholecystitis: Status: Acute (4) HCAP (healthcare-associated pneumonia): Status: Resolved (5) Acute on chronic kidney failure: Status: Resolved (6) Hyperkalemia: Status: Resolved Discharge Plan Disposition Patient Disposition: [facility] Condition: Improving Discharge Details Reason For Visit: HYPERGLYCEMIA,ENCEPHALOPATHY,SUSPECTED SEPSIS Admit Date/Time: 03/01/18 13:40 Admit Provider: Priscila Canela Attending Provider: Priscila Canela Primary Care Provider: Anne Horowitz [facility] Course Hospital Course: HPI: 57 year old resident of the [facility], with a recent history of MRSA bacteremia on IV vancomycin, admitted from [facility] Emergency Department on 03/01 with a diagnosis of Health Care Aquired Pneumonia, later found to have infection of a nonhealing diabetic foot ulcer. Mr. Corley has been hospitalized here at [facility] with sepsis on numerous prior occasions. He has a history of Group C strep and MRSA bacteremia, as well as E. Fecalis UTI in the past. Hesuffered a cardiopulmonary arrest necessitating a transfer to [facility] [place] [place]. He was treated for Choleycystitis, and as he is not a surgical candidate, he was treated conservatively with a pigtail catheter and antibiotics. He is chronically a resident at the [facility]. His other medical history includes DM, Adrenal insufficiency secondary to chronic steroid use, RA, Crohn's disease s/p Colectomy, OA, CKD with prior JESUS and resultant hyperkalemia, HTN, CAD, hypothyroidism, Obesity, and chronic pain. He's had recurrent UTIs, and also has a history of a non-healing diabetic foot ulcer. The patient was send to the ED due to worsening lethargy and hyperglycemia as noted in his Jail. While his initial CXR showed evidence of potential pneumonia vs. edema, subsequent read and repeat imaging showed no evidence of definitive acute process. His sputum did grow MRSA - of note, he has had a recent MRSA bacteremia that he had remained on Vancomycin for - he was unable to go through a KELLEE, but due to a persistent murmur was under long-term antibiotic therapy that was scheduled to end on 03/10. Mr. Corley was initially maintained on Vancomycin and Pip-Tazo, underwent a debridement of his wound via Podiatry, with cultures growing MRSA and Proteus Mirabilis (also growing Staph Epidermidis on surgical culture). Although diagnosed with Osteo, this was not confirmed by bone biopsy, and as the patient underwent debridement and excision of the digit, he was treated with a 2 week course of antibiotics, concluded on 03/21. The patient had also developed hyperkalemia during his hospital stay despite a stable creatinine, necessitating treatment with additional lasix and Kayexalate. His potassium remains normal on a renal and low potassium diet, and his renal function has remained stable. He also had a course of significant adrenal insufficiency due to inadvertant holding of his daily steroids. No other events reported. The patient feels well and without complaints. He is afebrile. Hospital Course: (1) Adrenal insufficiency: Patient with acute adrenal insufficiency precipitated by missed doses of increas ed dose prednisone, resolved. Will require very slow taper, with a potential higher baseline dose of prednisone therapy. Currently on 20mg BID, with a prior baseline of 10mg daily. Would recommend a slow taper down to 20mg daily over the next week, with reevaluation of whether he requires high maintenance dosing that his prior 10mg. (2) 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 2 diabetes mellitus: Status: Ruled-out Non-healing diabetic foot ulcer, with Xray showing evidence of potential osteo of the right 5th metatarsal. S/p debridement on 03/06 with resection of the 5th MPJ - culture of the tissue grew MRSA and Proteus Mirabilis. Per discussion with podiatry Osteo was not confirmed by biopsy. Has received 2 weeks of broad spectrum antibiotics post debridement and resection. Consider further evaluation of the LEs as an outpatient to evaluate for likely PVD and poor perfusion in diabetic patient. Needs to follow-up in about 10 days with podiatry. (3) Chronic cholecystitis: Cholecystostomy drain was not changed at [facility] [place] [place] on 03/05/17 - per discussion with IR by the hospitalist, there would not have been a benefit to it from the stand point of decreasing infection risk, as long as the drain is functioning well and continues to drain, which it has. Recommend outpatient [facility] [place] [place] general surgery follow up for cholecystectomy if possible - however may ultimately be deemed a poor surgical candidate. (4) HCAP (healthcare-associated pneumonia): S/p 5 days of therapy with Vancomycin and Pip-Tazo initially. Unsure if this was a true diagnosis as repeat read of CXR and repeat imaging failed to show evid ence of an infiltrate. However imaging while hospitalized on 03/14 showed likely infiltrates while patient remained on broad spectrum antibiotics, with repeat CXR showing improvement. No pulmonary symptoms at time of discharge. (5) Acute on chronic kidney failure: Resolved. Patient no longer on ARYA-I. Has lengthy history of significant hyperkalemia, and elevated K+ which he also experienced earlier this hospitalization, requiring additional dose of IV Diuretic and Kayexalate. 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 On the day of discharge the patient's creatinine did creep up without any change in nutrition or medication, with a K+ of 5.1. The patient does fluctuate with his creatinine quite a bit, and likely this is of no concern - will however recommend continuation of a low potassium renal diet, as well as a repeat BMP in 2 days time to ensure stability. (6) Hyperkalemia: Resolved. Plan as above. (7) DVT prophylaxis: Mr. Corley was maintained on SC Heparin. (8) Chronic Pruritis Unsure of etiology for this, but he was maintained on hypoallergenic bedding here along with topical Eucerin Cream and prn hydroxyzine with some effect. Recommend continuation of this regimen as an outpatient. (8) Advance directive on file: Full Code (9) Discharge planning issues: Chronic resident of the [facility] transfer back today. Home Meds and New Rx's Prescriptions: New prednisone 20 mg Tablet 20 mg PO BID Qty: 1 RF: 0 furosemide 20 mg Tablet 20 mg PO BID@0830,1600 Qty: 0 RF: 0 acidophilus-pectin, citrus 25 million cell -100 mg Tablet 1 cap PO TID Qty: 0 RF: 0 Continued loperamide 2 mg Capsule 2 mg PO QID PRNRF: 0 cyanocobalamin (vitamin B-12) 1,000 mcg Tablet 1,000 mcg PO DAILY RF: 0 aspirin [Aspirin Low Dose] 81 mg Tablet,Delayed Release (Dr/Ec) 81 mg PO BID RF: 0 risperidone 3 mg Tablet 3 mg PO HS RF: 0 carbamazepine 100 mg Tablet,Chewable 100 mg PO TID RF: 0 omeprazole 20 mg Capsule,Delayed Release(Dr/Ec) 20 mg PO DAILY RF: 0 folic acid 1 mg Tablet 1 mg PO DAILY RF: 0 clonidine HCl [Catapres] 0.1 mg Tablet 0.3 mg PO TID Qty: 0 RF: 0 amlodipine 5 mg Tablet 10 mg PO DAILY Qty: 0 RF: 0 ferrous sulfate 325 mg (65 mg iron) Tablet 325 mg PO BID Qty: 0 RF: 0 melatonin 3 mg Tablet Extended Release 9 mg PO DAILY@0000 Qty: 0 RF: 0 Lantus Solostar U-100 Insulin 100 unit/mL (3 mL) insulin pen 60 unit subcut DAILY RF: 0 trazodone 50 mg Tablet 50 mg PO HS RF: 0 levothyroxine 75 mcg Tablet 0.5 tab PO DAILY RF: 0 ascorbic acid (vitamin C) [Vitamin C] 250 mg Tablet 1 tab PO BID RF: 0 ergocalciferol (vitamin D2) [Vitamin D2] 50,000 unit Capsule See Rx Instructions .ROUTE .COMPLEX RF: 0 Centrum Complete 18-400 mg-mcg Tablet 1 tab PO DAILY RF: 0 Novolog Flexpen U-100 Insulin 100 unit/mL insulin pen subcut 0730,1130,1630 RF: 0 venlafaxine 75 mg Capsule,Extended Release 24hr 75 mg PO DAILY RF: 0 metoprolol succinate 25 mg Tablet Extended Release 24 Hr 25 mg PO DAILY RF: 0 acetaminophen [Tylenol] 325 mg Tablet 325 - 650 mg PO Q4H PRN PRNQty: 0 RF: 0 gabapentin 300 mg Capsule 300 mg PO TID Qty: 0 RF: 0 hydralazine 10 mg Tablet 10 mg PO TID Qty: 0 RF: 0 terazosin 2 mg Capsule 4 mg PO BID Qty: 0 RF: 0 hydroxyzine HCl 25 mg Tablet 25 mg PO Q6H PRN PRN (Reason: Itching) Qty: 0 RF: 0 magnesium chloride [Mag 64] 64 mg Tablet,Delayed Release (Dr/Ec) 64 mg PO BID Qty: 0 RF: 0 Discontinued furosemide 40 mg Tablet 40 mg PO DAILY RF: 0 furosemide [Lasix] 40 mg Tablet 40 mg PO DAILY RF: 0 vancomycin in 0.9 % sodium chl 500 mg/100 mL piggyback 1,000 mg IV Q48H RF: 0 prednisone 10 mg tablet 10 mg PO DAILY Qty: 28 RF: 0 Discharge Instructions Additional Instructions: Please ensure a kidney diet with LOW POTASSIUM Patient may benefit from Hypoallergenic Sheets and bedding Please recheck a BMP in 2 days to ensure stability of renal function and potassium Needs a 2 week follow-up with Dr. Ashford Needs follow-up with surgery at [facility] [place] [place] Stand Alone Forms: Nursing Discharge Form Referrals: Harris Ashford DPM [[facility] STAFF PHYSICIAN] - 04/06/18 1:00 pm () Activity:: Activity as Tolerated Equipment/Supplies:: No Equipment Needed Diet:: Renal, low potassium diet Discharge Orders Discharge Orders: Discharge Order (Routine); Ordered 03/24/18 Ordered By: Ariel Bravo Other Ambulatory Orders: Basic Metabolic Panel (Routine) Location: Determined by Patient Ordered By: Ariel Bravo DS: Data Vitals/I&O Vitals and I&O: Vital Signs Temperature 36.2 C L 03/24/18 07:45 Temperature Source Tympanic 03/24/18 07:45 Pulse 62 03/24/18 07:45 Pulse Rhythm Regular 03/23/18 20:58 Pulse 65 03/17/18 16:00 Respiratory Rate 18 03/24/18 07:45 Respiratory Effort Non-Labored 03/23/18 20:58 Respiratory Depth Normal 03/23/18 20:58 Respiratory Pattern Normal 03/23/18 20:58 Blood Pressure 158/70 H 03/24/18 07:45 Blood Pressure Mean 98 03/17/18 11:22 Blood Pressure Position Supine 03/17/18 13:00 Pulse Oximetry 96 03/24/18 09:44 Oxygen Delivery Method Room Air 03/24/18 09:44 Oxygen Flow Rate 0 03/24/18 09:44 Pain Level 0 03/24/18 07:45 Comment 03/14/18 10:58 Intake & Output 03/23/18 03/23/18 03/24/18 11:59 23:59 11:59 Intake Total 1100 / 1820 720 / 1820 Output Total 2350 / 4500 2150 / 4500 1650 / 1650 Balance -1250 / -2680 -1430 / -2680 -1650 / -1650 Weight 98.2 kg 97.5 kg Intake: IV Oral 1080 / 1800 720 / 1800 Output: Drainage 400 / 550 150 / 550 400 / 400 Right Upper Abdomen 400 / 550 150 / 550 400 / 400 Urine 1200 / 2400 1200 / 2400 300 / 300 Stool 750 / 1550 800 / 1550 950 / 950 Other: Urine Color Yellow Yellow Yellow Urine Appearance Clear Clear Clear Urine Odor None Strong Comment Void x1 in the urinal. Voiding Methods Urinal Urinal Urinal Completed studies during hospitalization [Text1]: EXAM: XR Chest, 1 View EXAM DATE/TIME: 03/01/2018 1:42 PM CLINICAL HISTORY: 57 years old, male; Signs and symptoms; Other: ? Pna TECHNIQUE: XR of the chest, 1 view. COMPARISON: CR XR CHEST 2V PA LATERAL 02/04/2018 10:11 AM FINDINGS: Tubes, catheters and devices: Right PICC line tip over the atriocaval junction. Lungs: Borderline interstitial pattern suggesting pulmonary interstitial edema and/or interstitial pneumonia. Pleural space: Unremarkable. No pleural effusion. No pneumothorax. Heart/Mediastinum: Unremarkable. No cardiomegaly. Bones/joints: Dextroscoliosis. IMPRESSION: 1. Right PICC line tip over the atriocaval junction. 2. Borderline interstitial pattern suggesting pulmonary interstitial edema and/or interstitial pneumonia. Exam(s) a RAD:XR foot RT complete SYMPTOMS/DIAGNOSIS: ULCER OVER DISTAL PHALANX OF HALLUX AND 5TH METATARSAL HEAD RIGHT FOOT: Three views. Comparison is 12/21/13. There is cortical disruption on the plantar surface of the head of the right fifth metatarsal. The possibility of an osteomyelitis can not be excluded. There are also hammer toe deformities of the second through fifth toes. The interphalangeal joint of the great toe was held in flexion. No destructive changes, fracture or dislocation is seen in this region to suggest osteomyelitis. The bones appear osteopenic. No suspicious lytic or sclerotic lesions are seen. No radiopaque foreign bodies are seen in the soft tissues. IMPRESSION: 1. Findings suggestive of cortical destruction involving the plantar surface of the head of the right fifth metatarsal raising the question of osteomyelitis. 2. Chronic changes of the foot as described above. 3. No radiopaque findings to suggest osteomyelitis of the great toe. Exam(s) 03/04 a RAD:XR portable chest AP SYMPTOMS/DIAGNOSIS: F/U PNEUMONIA PORTABLE CHEST: Comparison is 03/01/18. There is poor inspiration. The heart size and pulmonary vasculature are within normal limits. No focal consolidating infiltrates, effusions or pneumothoraces are identified. There is a right PICC line in stable position. IMPRESSION: No definite acute pulmonary process. Exam(s) 03/14 a RAD:XR portable chest AP SYMPTOM/DIAGNOSIS: SOB PORTABLE AP CHEST: Frontal view was obtained. The study is limited due to patient positioning and lack of cooperation. The heart appears mildly enlarged with mild prominent vasculature. There is blunting of the costophrenic angle suggesting small pleural effusions. There also appear to be increased lung markings in the right upper lobe and left lower lower. IMPRESSION: Findings which may represent pneumonia versus congestive heart failure. Please correlate clinically. Small bilateral pleural effusions. Exam(s) a US:US echocardiogram *[facility]* *[facility]* [address] [place] [address] Date of study: 03/16/2018 Transthoracic Echocardiography M-mode, complete 2D, complete spectral Doppler, and color Doppler *STUDY CONCLUSIONS* Impressions: There are no typical features of vegetative endocarditis. However, this diagnosis cannot be excluded on the basis of this transthoracic study. Consider transesophageal echocardiography, if clinically indicated, for superior assessment of valve anatomy. Summary: 1. Left ventricle: The cavity size was normal. Wall thickness was increased in a pattern of moderate LVH. Systolic function was hyperdynamic. The estimated ejection fraction was 65-70%. Some parameters suggest diastolic dysfunction. There was no evidence of elevated ventricular filling pressure by Doppler parameters. 2. Mitral valve: There was mild regurgitation. 3. Left atrium: The atrium was mildly dilated. 4. Right ventricle: The cavity size was normal. Wall thickness was mildly increased. Systolic function was normal. 5. Right atrium: The atrium was mildly dilated. 6. Atrial septum: No defect or patent foramen ovale was identified. 7. Pulmonary arteries: Pulmonary systolic pressure was in the range of 75mm Hg to 85mm Hg. 8. Inferior vena cava: The vessel was patent and dilated. The respirophasic diameter changes were normal. RAP estimated 5-10 mmHG. Exam(s) 03/17 a RAD:XR portable chest AP SYMPTOM/DIAGNOSIS: F/U PNEUMONIA PORTABLE AP CHEST: When compared with the 03/14 examination, there has been evident clearing of the lungs. There is nothing to suggest a pleural effusion. The heart is top limits of normal in size. SUMMARY: Interval improvement is demonstrated when compared with a previous examination from 03/14/18. Labs on day of discharge: Labs from last 24 hours 03/24/18 03/24/18 06:30 06:30 WBC 14.06 H RBC 4.39 L Hgb 10.5 L Hct 33.8 L MCV 77.0 L MCH 23.9 L MCHC 31.1 L RDW 20.1 H Plt Count 302 MPV 10.2 Immature Gran % See Differential Neutrophils % 86.0 Lymphocytes % 4.0 Monocytes % 2.0 Eosinophils % 8.0 Basophils % 0.0 Absolute Neutrophils 12.09 H Absolute Lymphocytes 0.56 L Absolute Monocytes 0.28 Absolute Eosinophils 1.12 H Absolute Basophils 0.00 Differential Comment Manual differential RBC Morphology Normal Sodium 135 L Potassium 5.1 Chloride 102 Carbon Dioxide 21.9 Anion Gap 11.1 H BUN 60 H Creatinine 2.93 H D Estimated GFR/1.73 m2 22.20 Glucose 243 H Calcium 9.0 Magnesium 2.2 Preliminary micro results at discharge 03/20/18 21:55 Blood Culture - Preliminary Blood NO GROWTH 72 HOURS 03/20/18 21:23 Blood Culture - Preliminary Blood NO GROWTH 72 HOURS [facility] Medical History MRSA bacteremia (Resolved) Diabetic foot ulcer (Chronic) Poorly controlled type 2 diabetes mellitus with circulatory disorder (Chronic) CKD (chronic kidney disease) (Chronic) Cardiopulmonary arrest with successful resuscitation (Resolved) Heme positive stool (Chronic) Pedal edema (Chronic) Chronic insomnia (Chronic) Anxiety (Chronic) Diabetes mellitus type 2, controlled (Chronic) Hypertension (Chronic) Chronic pain (Chronic) Hypothyroidism (Chronic) Obesity (Chronic) Back pain (Chronic 06/21/13) Inability to get out of bed (Chronic 06/21/13) Poor self care (Chronic 06/21/13) Chronic bipolar disorder (Chronic) CAD (coronary artery disease) (Chronic) Dyslipidemia (Chronic) Hypoandrogenism (Chronic) Rheumatoid arthritis (Chronic) Crohns disease (Chronic) Osteoarthritis of both knees (Chronic) Cholelithiasis (Chronic) Impaired mobility and ADLs (Chronic) Acute congestive heart failure (Chronic) Hemorrhagic cystitis (Chronic) Anemia (Chronic) Bipolar 1 disorder (Chronic) CAD (coronary artery disease) (Chronic) Chronic anxiety (Chronic) Chronic pain (Chronic) 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) Dyslipidemia (Chronic) Hypertension (Chronic) Surgical History Arthroplasty of knee (Resolved 03/18/12) Fracture, Open Treatment (Resolved) Social History [facility] Smoking/Tobacco Use Status: Never
[2018-03-24] MEDS: Furosemide 20 MG TAB PO (10:38)
[2018-03-24] MEDS: predniSONE 20 MG TAB PO (11:40)
--- NOTE | 2018-03-24 17:35 | PDOC.CMDIS ---
LACE Index Scoring Tool - Questions: Length of Stay (in days): 14 or more Acuity (Admit via E.D.?): Yes Comorbidities: Diabetes w/o Complication, Congestive Heart Failure, Liver or Renal Disease E.D. Visits: 7 - Answers: Total Score: 19 Risk of Readmission: High Risk Care Management Discharge Reason for Hospitalization: Hyperglycemia, encephalopathy, suspected sepsis, pneumonia Discharge Plan: Brendan will return to the [facility] prior to transferring to [facility] as the [facility] also his residence for the past eight years or so. He will require follow up with Dr. Ashford. CM encouraged MD to MD and RN to RN conversation for patient management post discharge as Brendan has had many admission to [facility]. CM connected Brendan to [facility] and left for [facility] as well. did not recieve a response from S[facility] though Brendan reports speaking to her regarding finaces during this admission. Brendan will transport via [facility] coordinated by this contract writer. Patient/Family Education Needs: Review of discharge instructions, care needs, level of care, legal support; [place] Aerobics Teacher Leyda for advocation in the community under [facility]. Services Needed at Discharge: Residential Facility ([facility] ), Transportation ([facility] )
--- NOTE | 2018-03-24 17:38 | CMDISCH_ITS ---
LACE Index Scoring Tool - Questions: Length of Stay (in days): 14 or more Acuity (Admit via E.D.?): Yes Comorbidities: Diabetes w/o Complication, Congestive Heart Failure, Liver or Renal Disease E.D. Visits: 7 - Answers: Total Score: 19 Risk of Readmission: High Risk Care Management Discharge Reason for Hospitalization: Hyperglycemia, encephalopathy, suspected sepsis, pneumonia Discharge Plan: Brendan will return to the [facility] prior to transferring to [facility] as the [facility] also his residence for the past eight years or so. He will require follow up with Dr. Ashford. CM encouraged MD to MD and RN to RN conversation for patient management post discharge as Brendan has had many admission to [facility]. CM connected B[facility] to [facility] and [facility] for [facility] as well. did not recieve a response from S[facility] though Brendan reports speaking to her regarding finaces during this admission. Brendan will transport via [facility] coordinated by this newspaper writer. Patient/Family Education Needs: Review of discharge instructions, care needs, level of care, legal support; [place] Seismic Interpreter Leyda for advocation in the community under [facility]. Services Needed at Discharge: [facility] Facility ([facility] ), Transportation ([facility] )
[2018-04-21 08:25] LABS: Anisocytosis 2+
[2018-04-21 08:26] LABS: Microcytosis 2+; Poikilocytes 2+; Polychromasia Present; Schistocytes 2+
== END 2018-03-24 12:03 | disposition designated cancer center or children's hospital (05) | DRG 622 ==
LOC: ER 15:44 → MS 16:07 → ICU 03-30 11:59
PROVIDERS: General Practice; Internal Medicine; Podiatrist; Admitting Provider Internal Medicine; Emergency Provider Emergency Medicine; PCP Family Medicine; Visit Provider Internal Medicine
PROC: 0QBN0ZX Excision of Right Metatarsal, Open Approach, Diagnostic (ICD-10-PCS; CPT 28292; principal; 2018-03-06 12:00)
DX: E27.3 Drug-induced adrenocortical insufficiency (principal); J18.9 Pneumonia, unspecified organism; G92 Toxic encephalopathy; N17.9 Acute kidney failure, unspecified; R78.81 Bacteremia; L97.416 Non-pressure chronic ulcer of right heel and midfoot with bone involvement without evidence of necrosis; M86.671 Other chronic osteomyelitis, right ankle and foot; E87.2 Acidosis; E11.621 Type 2 diabetes mellitus with foot ulcer; T38.0X5A Adverse effect of glucocorticoids and synthetic analogues, initial encounter; E11.69 Type 2 diabetes mellitus with other specified complication; Z79.52 Long term (current) use of systemic steroids; Y95 Nosocomial condition; K81.1 Chronic cholecystitis; E11.22 Type 2 diabetes mellitus with diabetic chronic kidney disease; N18.9 Chronic kidney disease, unspecified; I12.9 Hypertensive chronic kidney disease with stage 1 through stage 4 chronic kidney disease, or unspecified chronic kidney disease; E87.5 Hyperkalemia; E86.0 Dehydration; E11.59 Type 2 diabetes mellitus with other circulatory complications; L29.8 Other pruritus; M06.9 Rheumatoid arthritis, unspecified; Z79.2 Long term (current) use of antibiotics; I25.10 Atherosclerotic heart disease of native coronary artery without angina pectoris; E03.9 Hypothyroidism, unspecified; Z87.440 Personal history of urinary (tract) infections; Z45.2 Encounter for adjustment and management of vascular access device; I34.0 Nonrheumatic mitral (valve) insufficiency; Z79.4 Long term (current) use of insulin; Z93.8 Other artificial opening status; L90.5 Scar conditions and fibrosis of skin; B95.62 Methicillin resistant Staphylococcus aureus infection as the cause of diseases classified elsewhere; B96.4 Proteus (mirabilis) (morganii) as the cause of diseases classified elsewhere; I87.8 Other specified disorders of veins; E87.70 Fluid overload, unspecified; G47.33 Obstructive sleep apnea (adult) (pediatric); I27.20 Pulmonary hypertension, unspecified; E11.51 Type 2 diabetes mellitus with diabetic peripheral angiopathy without gangrene; B95.7 Other staphylococcus as the cause of diseases classified elsewhere; Z93.2 Ileostomy status
CPT/HCPCS: 28113; 28124; 36410; 36415; 36592; 80048; 80053; 80076; 82550; 82805; 82947; 82962; 87040; 87077; 87081; 93306; 96360; 96361; 96372; 97110; 97163; 97166; 97167; 97530; 97535; 99221; 99223; 99232; 99233; 99239; 99252; 99285; 99291; 99310; 36600; 71045; 73630; 80202; 81003; 81015; 83605; 83735; 84132; 84443; 85025; 85610; 86140; 87070; 87075; 87086; 87186; 87205; 87324; 88304; 88311; A0420; A0425; A0428; J1335; J1644; J1720; J1815; J1941; J2543; J2997; J3490; J7512

== ENCOUNTER 2018-03-26 12:07 | Outpatient (REF) | payer MEDICARE, MEDICAID, SELFPAY ==
[2018-03-26 13:36] LABS: Anion Gap 11.8 mmol/L (3-11); BUN 66 mg/dL (7-18); CO2 19.2 mmol/L (21.0-32.0); CREATININE 2.22 mg/dL (0.70-1.30); Calcium 9.4 mg/dL (8.5-10.1); Chloride 107 mmol/L (98-107); Estimated GFR 30.58 (mL/min/1.73m2); Glucose 287 mg/dL (70-100); Potassium 5.3 mmol/L (3.5-5.1); Sodium 138 mmol/L (136-145)
== END 2018-03-26 12:27 ==
LOC: LBN 12:07
PROVIDERS: PCP Family Medicine; Visit Provider Family Medicine
DX: E11.22 Type 2 diabetes mellitus with diabetic chronic kidney disease (principal); I10 Essential (primary) hypertension; E03.9 Hypothyroidism, unspecified
CPT/HCPCS: 80048

== ENCOUNTER 2018-04-06 13:14 | Outpatient (REF) | payer MEDICARE, MEDICAID, SELFPAY | END 2018-04-06 13:34 | LOC: LBN 13:14 | PROVIDERS: PCP Family Medicine; Visit Provider Family Medicine | DX: J11.1 Influenza due to unidentified influenza virus with other respiratory manifestations (principal) | CPT/HCPCS: 87449 ==

== ENCOUNTER 2018-04-10 01:51 | Emergency (ER) | payer MEDICARE, MEDICAID, SELFPAY ==
[2018-04-10] VITALS (200 sets, daily range): BP systolic 101–148; BP diastolic 45–65; PULSE 58–85; RESP 13–24; TEMP 37; O2SAT 67–100
--- NOTE | 2018-04-10 01:53 | ED.GENADUL_ITS ---
Discharge Plan Disposition Patient Disposition: SNF (LEVEL 1) [facility] Condition: Stable Discharge Details Chief Complaint: Chest Pain Clinical Impression: Chest pain Reason For Visit: SUREKHA Primary Care Provider: Anne Horowitz ED Provider: Jeferson Lockwood [facility] and New Rx's Prescriptions: Continued loperamide 2 mg Capsule 2 mg PO QID PRNRF: 0 cyanocobalamin (vitamin B-12) 1,000 mcg Tablet 1,000 mcg PO DAILY RF: 0 aspirin [Aspirin Low Dose] 81 mg Tablet,Delayed Release (Dr/Ec) 81 mg PO BID RF: 0 risperidone 3 mg Tablet 3 mg PO HS RF: 0 carbamazepine 100 mg Tablet,Chewable 100 mg PO TID RF: 0 omeprazole 20 mg Capsule,Delayed Release(Dr/Ec) 20 mg PO DAILY RF: 0 folic acid 1 mg Tablet 1 mg PO DAILY RF: 0 clonidine HCl [Catapres] 0.1 mg Tablet 0.3 mg PO TID Qty: 0 RF: 0 amlodipine 5 mg Tablet 10 mg PO DAILY Qty: 0 RF: 0 ferrous sulfate 325 mg (65 mg iron) Tablet 325 mg PO BID Qty: 0 RF: 0 melatonin 3 mg Tablet Extended Release 9 mg PO DAILY@0000 Qty: 0 RF: 0 Lantus Solostar U-100 Insulin 100 unit/mL (3 mL) insulin pen 60 unit subcut DAILY RF: 0 trazodone 50 mg Tablet 50 mg PO HS RF: 0 levothyroxine 75 mcg Tablet 0.5 tab PO DAILY RF: 0 ascorbic acid (vitamin C) [Vitamin C] 250 mg Tablet 1 tab PO BID RF: 0 ergocalciferol (vitamin D2) [Vitamin D2] 50,000 unit Capsule See Rx Instructions .ROUTE .COMPLEX RF: 0 Centrum Complete 18-400 mg-mcg Tablet 1 tab PO DAILY RF: 0 Novolog Flexpen U-100 Insulin 100 unit/mL insulin pen subcut 0730,1130,1630 RF: 0 venlafaxine 75 mg Capsule,Extended Release 24hr 75 mg PO DAILY RF: 0 metoprolol succinate 25 mg Tablet Extended Release 24 Hr 25 mg PO DAILY RF: 0 prednisone 20 mg Tablet 20 mg PO BID Qty: 1 RF: 0 furosemide 20 mg Tablet 20 mg PO BID@0830,1600 Qty: 0 RF: 0 acidophilus-pectin, citrus 25 million cell -100 mg Tablet 1 cap PO TID Qty: 0 RF: 0 acetaminophen [Tylenol] 325 mg Tablet 325 - 650 mg PO Q4H PRN PRNQty: 0 RF: 0 gabapentin 300 mg Capsule 300 mg PO TID Qty: 0 RF: 0 hydralazine 10 mg Tablet 10 mg PO TID Qty: 0 RF: 0 terazosin 2 mg Capsule 4 mg PO BID Qty: 0 RF: 0 hydroxyzine HCl 25 mg Tablet 25 mg PO Q6H PRN PRN (Reason: Itching) Qty: 0 RF: 0 magnesium chloride [Mag 64] 64 mg Tablet,Delayed Release (Dr/Ec) 64 mg PO BID Qty: 0 RF: 0 ceftriaxone 500 mg Recon Soln 1,000 mg IM DAILY RF: 0 Discharge Instructions Additional Instructions: Your EKG has no significant changes. Chest x-ray is negative. Laboratory studies remain baseline other than elevated sugar which would be expected given the high-dose prednisone. 2 troponins have been negative. Chest pain does not appear to be coming from a cardiac source. Please follow-up with Dr. Horowitz. Return to ED for fever, new or worsening chest pain, shortness of breath, other concerns or problems. Referrals: Anne Horowitz MD, [place] [Primary Care Provider] - Medical Decision Making Patient presents from [facility] with complaints of chest pain. No apparent associated symptoms. Initially denied radiation on further questioning some radiation to arms. Received aspirin by EMS. Vital signs on arrival are fine. Initial EKG with some mild ST depression laterally. IV established here and laboratory studies obtained. Portable chest x-ray ordered. Nitroglycerin given with minimal relief after 2. Blood pressure did drop so third held. Try GI cocktail. Wait for laboratory studies and reevaluate. Initial troponin negative after almost 3 hours of chest pain. Baseline anemia unchanged. Baseline renal insufficiency unchanged. Blood sugar 438 but apparently had a fair number of late night snacks today. Electrolytes with normal potassium, slightly low magnesium and calcium. Patient reports no change in chest pain with GI cocktail. Reports pain is still present yet he is sleeping prior to me coming in to room and looks very comfortable. Will hold in ED for repeat EKG and troponin. 6:45 AM -patient has been sleeping the entire time he has been here. Second troponin remains negative. Second EKG unchanged. When woke patient states he still has pain. States it does not seem that bad. It is nonpleuritic. He is not short of breath. Chest x-ray was negative. He has had pain now for over 7 hours with a negative troponin and unchanged EKG. I do not suspect pulmonary embolus or dissection. He has no pneumonia. At this point I think he is safe for return back to the [facility] and follow-up with primary care there. Return to ED for fever, new or worsening chest pain, shortness of breath, other concerns. Medical Records Medical records reviewed: Yes I reviewed the patient's medical records. Lab Data Lab results reviewed: Yes I reviewed the patient's lab results. ECG Data Attestation: I personally reviewed and interpreted this ECG (s) as follows: Prior ECG tracings: available for review Interpretation: #1 - Sinus rhythm at a rate of 67. Normal axis and intervals. Nonspecific and mild ST depression laterally. Questionable elevation in V2 only versus artifact. #2 -Sinus rhythm at 69. Normal axis and intervals. Continues with very mild nonspecific ST depression. No changes from earlier. HPI General Mode of arrival: EMS . Date/Time Provider Initiated Documentation: 04/10/18 01:59 . Information obtained by: patient, EMS and old records reviewed . HPI Narrative: Patient is transferred in from the [facility] for evaluation of chest pain. Patient reports developing chest pain about 11:30 tonight. Initially states no radiation but then on subsequent questioning states radiation to arms. No shortness of breath, lightheadedness, diaphoresis. He has a chronic cough which is unchanged. He has chronic leg pain and swelling which is unchanged. He denies any fever or illness. He reports having chest pain similar to this when he had his heart attack. He has remained the same since it started. He did receive full dose aspirin in route. He did not receive nitro. Related Data Home Medications Medication Instructions Recorded Confirmed aspirin [Aspirin Low Dose] 81 mg PO BID 12/23/17 04/10/18 carbamazepine 100 mg PO TID 12/23/17 04/10/18 cyanocobalamin (vitamin B-12) 1,000 mcg PO DAILY 12/23/17 04/10/18 folic acid 1 mg PO DAILY 12/23/17 04/10/18 loperamide 2 mg PO QID PRN 12/23/17 04/10/18 omeprazole 20 mg PO DAILY 12/23/17 04/10/18 risperidone 3 mg PO HS 12/23/17 04/10/18 amlodipine 10 mg PO DAILY #0 tab 12/31/17 04/10/18 clonidine HCl [Catapres] 0.3 mg PO TID #0 tab 12/31/17 04/10/18 ferrous sulfate 325 mg PO BID #0 tab 12/31/17 04/10/18 melatonin 9 mg PO DAILY@0000 #0 tab 12/31/17 04/10/18 acetaminophen [Tylenol] 325 - 650 mg PO Q4H PRN PRN #0 tab 02/10/18 04/10/18 gabapentin 300 mg PO TID #0 cap 02/10/18 04/10/18 hydralazine 10 mg PO TID #0 tab 02/10/18 04/10/18 hydroxyzine HCl 25 mg PO Q6H PRN PRN #0 tab 02/10/18 04/10/18 magnesium chloride [Mag 64] 64 mg PO BID #0 tab 02/10/18 04/10/18 terazosin 4 mg PO BID #0 cap 02/10/18 04/10/18 Centrum Complete 1 tab PO DAILY 03/01/18 04/10/18 Lantus Solostar U-100 Insulin 60 unit SUBCUT DAILY 03/01/18 04/10/18 Novolog Flexpen U-100 Insulin 0 units SUBCUT 0730,1130,1630 03/01/18 04/10/18 ascorbic acid (vitamin C) [Vitamin 1 tab PO BID 03/01/18 04/10/18 C] ergocalciferol (vitamin D2) See Rx Instructions .ROUTE .COMPLEX 03/01/18 04/10/18 [Vitamin D2] levothyroxine 0.5 tab PO DAILY 03/01/18 04/10/18 trazodone 50 mg PO HS 03/01/18 04/10/18 metoprolol succinate 25 mg PO DAILY 03/03/18 04/10/18 venlafaxine 75 mg PO DAILY 03/03/18 04/10/18 acidophilus-pectin, citrus 1 cap PO TID #0 tab 03/24/18 04/10/18 furosemide 20 mg PO BID@0830,1600 #0 tab 03/24/18 04/10/18 prednisone 20 mg PO BID #1 tab 03/24/18 04/10/18 ceftriaxone 1,000 mg IM DAILY 04/10/18 04/10/18 Previous Rx's Medication Instructions Recorded amlodipine 10 mg PO DAILY #0 tab 12/31/17 clonidine HCl [Catapres] 0.3 mg PO TID #0 tab 12/31/17 ferrous sulfate 325 mg PO BID #0 tab 12/31/17 melatonin 9 mg PO DAILY@0000 #0 tab 12/31/17 acetaminophen [Tylenol] 325 - 650 mg PO Q4H PRN PRN #0 tab 02/10/18 gabapentin 300 mg PO TID #0 cap 02/10/18 hydralazine 10 mg PO TID #0 tab 02/10/18 hydroxyzine HCl 25 mg PO Q6H PRN PRN #0 tab 02/10/18 magnesium chloride [Mag 64] 64 mg PO BID #0 tab 02/10/18 terazosin 4 mg PO BID #0 cap 02/10/18 acidophilus-pectin, citrus 1 cap PO TID #0 tab 03/24/18 furosemide 20 mg PO BID@0830,1600 #0 tab 03/24/18 prednisone 20 mg PO BID #1 tab 03/24/18 Allergies Allergy/AdvReac Type Severity Reaction Status Date / Time No Known Allergies Allergy Unverified 04/10/18 02:14 General YVES: 2 Review of Systems Constitutional Denies chills, Denies fever(s), Denies headache(s) and Denies malaise Eyes Denies change in vision and Denies eye pain ENT Denies otalgia, Denies headache(s), Denies nasal congestion, Denies neck pain and Denies sore throat Cardiovascular Reports chest pain, Denies diaphoresis, Denies syncope, Denies rapid heart rate, Reports leg edema, Denies lightheadedness, Reports radiating jaw, neck or arm pain, Denies palpitations and Denies dyspnea Respiratory Reports cough and Denies dyspnea Gastrointestinal Denies abdominal pain, Denies diarrhea, Denies nausea and Denies vomiting Genitourinary Denies hematuria, Denies dysuria and Denies flank pain Musculoskeletal Denies back pain and Denies neck pain Integumentary/Breasts Reports skin ulcer Neurologic Denies confusion, Denies syncope, Denies headache(s) and Denies focal weakness Psychiatric Denies confusion Endocrine Denies palpitations PFSH Medical History MRSA bacteremia (Resolved) Diabetic foot ulcer (Chronic) Poorly controlled type 2 diabetes mellitus with circulatory disorder (Chronic) CKD (chronic kidney disease) (Chronic) Cardiopulmonary arrest with successful resuscitation (Resolved) Heme positive stool (Chronic) Pedal edema (Chronic) Chronic insomnia (Chronic) Hypertension (Chronic) Chronic pain (Chronic) Hypothyroidism (Chronic) Obesity (Chronic) Back pain (Chronic 06/21/13) Inability to get out of bed (Chronic 06/21/13) Poor self care (Chronic 06/21/13) Chronic bipolar disorder (Chronic) CAD (coronary artery disease) (Chronic) Dyslipidemia (Chronic) Rheumatoid arthritis (Chronic) Osteoarthritis of both knees (Chronic) Cholelithiasis (Chronic) Impaired mobility and ADLs (Chronic) Hemorrhagic cystitis (Inactive) Anemia (Chronic) Chronic anxiety (Chronic) Ulcerative colitis (Chronic) Surgical History History of insertion of T-tube into biliary tract (Chronic) S/P colectomy (Chronic) Arthroplasty of knee (Resolved 03/18/12) Fracture, Open Treatment (Resolved) Social History housing: [facility] Smoking and Tabacco status: Never Exam Const General: cooperative and no acute distress Nutritional Appearance: obese Orientation: alert and oriented x3 HENMT Head: normocephalic and atraumatic Mouth: moist mucous membranes Neck Neck: trachea midline and supple Resp Effort & Inspection: normal respiratory effort Auscultation: no rales, rhonchi (few scattered) and no wheezes Cardio Rate: regular rate Rhythm: regular rhythm Heart Sounds: S1 normal, S2 normal and murmur Pulses: radial pulses present GI Inspection: other (RLQ ostomy; Bili Tube RUQ) Palpation: soft, not firm and nontender Skin General skin exam: dry skin Neuro General: alert, oriented x3, no focal motor deficits and CN's II-XI intact bilaterally Extrem General: edema Laterality: bilateral (LE (chronic)) Psych Appearance: grossly normal Mental Status: mental status grossly normal Speech and Movement: speech and movement normal Mood: congruent mood Affect: blunted Attitude: cooperative
--- NOTE | 2018-04-10 02:04 | DI.RAD_ITS ---
SYMPTOM/DIAGNOSIS: CHEST PAIN PORTABLE AP CHEST: Comparison is made with 03/17/18. The heart is normal in size. The lungs are clear. The mediastinal structures and pleura appear intact. CONCLUSION: Normal chest.
[2018-04-10 02:17] LABS: Abs Immature Grans 0.11 k/cumm (0.0-0.09); Absolute Basophil Count 0.02 k/cumm (0.0-0.2); Absolute Eosinophil Count 0.11 k/cumm (0.0-0.7); Absolute Lymphocyte Count 0.82 k/cumm (1.2-3.4); Absolute Monocyte Count 0.76 k/cumm (0.11-0.7); Absolute Neutrophil Count 10.06 k/cumm (1.2-6.7); Basophils % 0.2; Eosinophils % 0.9; HCT 32.9 % (40.0-50.0); HGB 10.4 g/dL (13.5-17.5); Immature Grans % 0.9; Lymphocytes % 6.9; Mean Corp. HGB Concentration 31.6 g/dL (32.0-36.0); Mean Corpuscular Hemoglobin 24.3 pg (27.0-33.0); Mean Corpuscular Volume 76.9 fL (80-95); Mean Platelet Volume 10.1 fL (8.0-11.0); Monocytes % 6.4; Neutrophils % 84.7; Platelet Count 332 x1000/uL (130-400); RBC 4.28 m/cumm (4.50-6.00); RBC Distribution Width 19.5 % (11.8-14.1); White Blood Cell Count 11.88 k/cumm (4.4-10.8)
[2018-04-10 02:32] LABS: ALT 16 U/L (12-78); AST 7 U/L (15-37); Albumin 2.5 g/dL (3.4-5.0); Alkaline Phosphatase 165 U/L (46-116); Anion Gap 13.1 mmol/L (3-11); BUN 59 mg/dL (7-18); Bilirubin, Total 0.1 mg/dL (0.2-1.0); CO2 18.9 mmol/L (21.0-32.0); CREATININE 2.64 mg/dL (0.70-1.30); Calcium 8.3 mg/dL (8.5-10.1); Chloride 106 mmol/L (98-107); Estimated GFR 25.03 (mL/min/1.73m2); Glucose 438 mg/dL (70-100); Magnesium 1.7 mg/dL (1.8-2.4); Potassium 3.5 mmol/L (3.5-5.1); Sodium 138 mmol/L (136-145); Total Protein 6.3 g/dL (6.4-8.2); Troponin I 0.02 ng/mL (0.00-0.06)
--- NOTE | 2018-04-10 02:41 | NUR.NOTE ---
nitro after 2 tabs stopped for hypotension, patient b/P back wnl after 5 moinutes Nursing Note:
[2018-04-10] MEDS: Normal Saline 500 ML IV (02:47)
--- NOTE | 2018-04-10 03:46 | DI.VRAD_ITS ---
EXAM: XR Chest, 1 View EXAM DATE/TIME: 04/10/2018 2:06 AM CLINICAL HISTORY: 57 years old, male; Pain; Chest pain; Type not specified TECHNIQUE: XR of the chest, 1 view. COMPARISON: SC XR PORTABLE CHEST AP 03/17/2018 4:10 PM FINDINGS: Lungs: No acute pulmonary infiltrate. Pleural space: Unremarkable. No pleural effusion. No pneumothorax. Heart/Mediastinum: Unremarkable. No cardiomegaly. Bones/joints: Unremarkable. IMPRESSION: No acute finding. Dictated and Authenticated by: Hemanth Hatfield MD. Ordering:MARI Govea MD
--- NOTE | 2018-04-10 05:37 | NUR.NOTE ---
patient has been sleeping, patient repositioned once per patient request, patient voided 300mL Nursing Note:
--- NOTE | 2018-04-10 06:15 | NUR.NOTE ---
2nd ekg done and 4 hr troponin sent Nursing Note:
[2018-04-10 06:33] LABS: Troponin I 0.02 ng/mL (0.00-0.06)
== END 2018-04-10 07:09 | disposition skilled nursing facility (03) ==
PROVIDERS: Emergency Provider Emergency Medicine; PCP Family Medicine
DX: R07.9 Chest pain, unspecified (principal); E11.65 Type 2 diabetes mellitus with hyperglycemia; E83.42 Hypomagnesemia; I25.10 Atherosclerotic heart disease of native coronary artery without angina pectoris; E11.22 Type 2 diabetes mellitus with diabetic chronic kidney disease; Z79.4 Long term (current) use of insulin; I12.9 Hypertensive chronic kidney disease with stage 1 through stage 4 chronic kidney disease, or unspecified chronic kidney disease; N18.9 Chronic kidney disease, unspecified
CPT/HCPCS: 36415; 36416; 80053; 82962; 93005; 96360; 96361; 99285; 71045; 83735; 84484; 85025; 93010; 99284

== ENCOUNTER 2018-04-20 14:49 | Outpatient (REF) | payer MEDICARE, MEDICAID, SELFPAY ==
[2018-04-20 15:11] LABS: Abs Immature Grans 0.31 k/cumm (0.0-0.09); Absolute Basophil Count 0.04 k/cumm (0.0-0.2); Absolute Eosinophil Count 0.07 k/cumm (0.0-0.7); Basophils % 0.2; Eosinophils % 0.4; HGB 10.8 g/dL (13.5-17.5); Immature Grans % 1.7; Lymphocytes % 4.8; Mean Corpuscular Hemoglobin 24.3 pg (27.0-33.0); Mean Corpuscular Volume 80.9 fL (80-95); Mean Platelet Volume 10.3 fL (8.0-11.0); Monocytes % 2.8; Neutrophils % 90.1; Platelet Count 307 x1000/uL (130-400); RBC 4.45 m/cumm (4.50-6.00); RBC Distribution Width 19.5 % (11.8-14.1); White Blood Cell Count 18.72 k/cumm (4.4-10.8)
[2018-04-20 15:31] LABS: ALT 16 U/L (12-78); AST 9 U/L (15-37); Albumin 2.8 g/dL (3.4-5.0); Alkaline Phosphatase 145 U/L (46-116); Anion Gap 11.1 mmol/L (3-11); BUN 58 mg/dL (7-18); Bilirubin, Total 0.1 mg/dL (0.2-1.0); CO2 18.9 mmol/L (21.0-32.0); CREATININE 2.28 mg/dL (0.70-1.30); Calcium 7.6 mg/dL (8.5-10.1); Chloride 112 mmol/L (98-107); Estimated GFR 29.65 (mL/min/1.73m2); Glucose 289 mg/dL (70-100); Potassium 4.8 mmol/L (3.5-5.1); Sodium 142 mmol/L (136-145); Total Protein 6.2 g/dL (6.4-8.2)
[2018-04-20 15:35] LABS: Bilirubin Negative (Negative); Blood Trace-lysed (Negative); Clarity Clear; Glucose Negative (Negative); Ketones Negative (Negative); Leukocyte Esterase Large (Negative); Nitrite Negative (Negative); Specific Gravity 1.015 (1.005-1.025); Urobilinogen 0.2 EU/dL (Up TO 0.2)
[2018-04-20 15:36] LABS: Absolute Monocyte Count 0.52 k/cumm (0.11-0.7); Absolute Neutrophil Count 16.87 k/cumm (1.2-6.7)
[2018-04-20 15:52] LABS: Bacteria Negative HPF (Negative); C & S Indicated? Yes; Casts Negative LPF (Negative); Crystals Negative HPF (Negative); Epithelial Cells Negative HPF (Negative); Mucus Negative (Negative); Other Cells Moderate Yeast (Negative); RBC Negative (0-2); WBC >50 HPF (0-5)
[2018-04-20 15:59] LABS: Anisocytosis 2+; Burr Cells (echinocyte) 2+; Diff Comment RBC Morph Reviewed; Hypochromasia 2+; Microcytosis 2+; Nucleated RBC 1 /100WBC; Ovalocytes 2+
[2018-04-20 16:00] LABS: Poikilocytes 3+; Schistocytes 2+
== END 2018-04-20 15:09 ==
LOC: LBN 14:49
PROVIDERS: PCP Family Medicine; Visit Provider Family Medicine
DX: A41.9 Sepsis, unspecified organism (principal); I12.9 Hypertensive chronic kidney disease with stage 1 through stage 4 chronic kidney disease, or unspecified chronic kidney disease; E11.22 Type 2 diabetes mellitus with diabetic chronic kidney disease; R82.90 Unspecified abnormal findings in urine
CPT/HCPCS: 80053; 81003; 81015; 85025; 87086

== ENCOUNTER 2018-04-25 20:24 | Inpatient (IN) | payer MEDICARE, MEDICAID, SELFPAY ==
[2018-04-25] VITALS (23 sets, daily range): BP systolic 130–146; BP diastolic 53–60; PULSE 56–69; RESP 14–22; TEMP 36.4–37.4; O2SAT 92–96
--- NOTE | 2018-04-25 20:38 | DI.CT_ITS ---
SYMPTOMS/DIAGNOSIS: MENTAL STATUS CHANGES, RIGHT UPPER QUADRANT DRAIN, IMMOBILITY NONCONTRAST HEAD CT: Comparison is made with January,. No intracranial hemorrhage, mass or infarct is seen. There is no evidence of skull fracture. There is mild patient motion. The sinuses and mastoid air cells, as well as orbits, are unremarkable. There is stable atrophy. The ventricles are normal in size. IMPRESSION: No acute abnormality. CT OF THE CHEST, ABDOMEN AND PELVIS: Comparison is made with chest CT dated November,. The exam is limited by patient motion. CHEST CT: There are tiny bilateral pleural effusions. No focal infiltrates are seen. There are calcified hilar and mediastinal lymph nodes consistent with prior granulomatous disease. The heart is enlarged. The aorta is not dilated. There is bilateral gynecomastia. ABDOMINAL AND PELVIC CT: There is artifact created by the patient's arms over his abdomen. The exam is also limited by patient motion. There is a catheter seen in the gallbladder fossa. There is significant motion in this area. Calcified stones are again noted in the gallbladder. There is no drainable abscess or fluid collection. There is an ostomy in the right lower quadrant. There is no bowel dilatation or wall thickening. The patient is status post resection of the rectum and sigmoid. No adenopathy, free air or free fluid is seen. Degenerative changes are seen in the spine. A lipoma is seen in the upper right anterior thigh. This appears unchanged from the previous exam. IMPRESSION: Limited exam secondary to patient motion. A catheter is noted in the gallbladder fossa. No abscess or fluid collection is seen. A right lower quadrant ostomy is seen. There is no evidence of bowel obstruction.
--- NOTE | 2018-04-25 20:46 | ED.GENADUL_ITS ---
Discharge Plan Disposition Patient Disposition: [facility] INPATIENT Condition: Stable Discharge Details Chief Complaint: AMS/LOC Clinical Impression: Urinary tract infection Reason For Visit: SUREKHA Primary Care Provider: Anne Horowitz ED Provider: Calderon Del Cid Home Meds and New Rx's Prescriptions: No Action loperamide 2 mg Capsule 2 mg PO QID PRNRF: 0 cyanocobalamin (vitamin B-12) 1,000 mcg Tablet 1,000 mcg PO DAILY RF: 0 aspirin [Aspirin Low Dose] 81 mg Tablet,Delayed Release (Dr/Ec) 81 mg PO BID RF: 0 carbamazepine 100 mg Tablet,Chewable 100 mg PO TID RF: 0 omeprazole 20 mg Capsule,Delayed Release(Dr/Ec) 20 mg PO DAILY RF: 0 folic acid 1 mg Tablet 1 mg PO DAILY RF: 0 clonidine HCl [Catapres] 0.1 mg Tablet 0.3 mg PO TID Qty: 0 RF: 0 amlodipine 5 mg Tablet 10 mg PO DAILY Qty: 0 RF: 0 ferrous sulfate 325 mg (65 mg iron) Tablet 325 mg PO BID Qty: 0 RF: 0 Lantus Solostar U-100 Insulin 100 unit/mL (3 mL) insulin pen 60 unit subcut DAILY RF: 0 levothyroxine 75 mcg Tablet 0.5 tab PO DAILY RF: 0 ascorbic acid (vitamin C) [Vitamin C] 250 mg Tablet 1 tab PO BID RF: 0 ergocalciferol (vitamin D2) [Vitamin D2] 50,000 unit Capsule See Rx Instructions .ROUTE .COMPLEX RF: 0 Centrum Complete 18-400 mg-mcg Tablet 1 tab PO DAILY RF: 0 Novolog Flexpen U-100 Insulin 100 unit/mL insulin pen subcut 0730,1130,1630 RF: 0 venlafaxine 75 mg Capsule,Extended Release 24hr 75 mg PO DAILY RF: 0 metoprolol succinate 25 mg Tablet Extended Release 24 Hr 25 mg PO DAILY RF: 0 furosemide 20 mg Tablet 20 mg PO BID@0830,1600 Qty: 0 RF: 0 acidophilus-pectin, citrus 25 million cell -100 mg Tablet 1 cap PO TID Qty: 0 RF: 0 prednisone 20 mg tablet 50 mg PO DAILY RF: 0 acetaminophen [Tylenol] 325 mg Tablet 325 - 650 mg PO Q4H PRN PRNQty: 0 RF: 0 hydralazine 10 mg Tablet 10 mg PO TID Qty: 0 RF: 0 terazosin 2 mg Capsule 4 mg PO BID Qty: 0 RF: 0 hydroxyzine HCl 25 mg Tablet 25 mg PO Q6H PRN PRN (Reason: Itching) Qty: 0 RF: 0 magnesium chloride [Mag 64] 64 mg Tablet,Delayed Release (Dr/Ec) 64 mg PO BID Qty: 0 RF: 0 Medical Decision Making 58-year-old male referred from the [facility] with a 1 week of gradual onset of mental status changes. He is accompanied a past medical history including indwelling right upper quadrant drain for cholecystitis, colostomy, chronic kidney disease with diabetes, hypertension, coronary artery disease, poor mobility and poor self-care. Arrives to the ER with a temp of 36.4, pulse 56, blood pressure 133/56 with oxygenation of 95%. He is conversant and interactive but does seem mildly sedated. He has had numerous episodes of sepsis in the past and is also at risk for electrolyte abnormalities, dehydration. No evidence of cellulitis on detailed skin exam including sacrum and feet. IV placed, labs obtained, patient referred for CT of head to rule out intracranial hemorrhage or mass, as well as ct scan of chest and abdomen. Labs reveal a mild increase in creatinine to 2.8 with mild hyperkalemia 6.3 without EKG changes. Patient was given 15 g of Kayexalate. Ammonia and lactic acid levels were unremarkable. Urinalysis with acute UTI and bacturia. Both white blood cell count and CRP are elevated. Patient given Rocephin for urinary tract infection. CT scan of chest, abdomen, pelvis pain which is notable for peribronchial cuffing that is nonspecific, abdomen with cholecystostomy tube in place, otherwise unremarkable exam. Initial troponin was slightly elevated at 0.07, repeated at 0.06. In the face of his worsening chronic kidney disease, likely this is not diagnostic but rather secondary to poor renal clearance. After 1 L of fluid, potassium repeated and improved to 5.1 with improvement of creatinine to 2.5 Most consistent with urinary tract infection and acute mental status changes. Lab Data Lab results reviewed: Yes I reviewed the patient's lab results. Laboratory Results - last 24 hr 04/25/18 20:59 Urine - Reflex from Ua Urine Culture - Pending 04/25/18 21:00 Blood Blood Culture - Pending 04/25/18 20:43 Blood Blood Culture - Pending Laboratory Tests Range/Units 04/25/18 04/25/18 04/25/18 20:43 20:43 20:43 WBC (4.4-10.8) k/cumm RBC (4.50-6.00) m/cumm Hgb (13.5-17.5) g/dL Hct (40.0-50.0) % MCV (80-95) fL MCH (27.0-33.0) pg MCHC (32.0-36.0) g/dL RDW (11.8-14.1) % Plt Count (130-400) x1000/uL MPV (8.0-11.0) fL Immature Gran % Neutrophils % Lymphocytes % Monocytes % Eosinophils % Basophils % Absolute Neutrophils (1.2-6.7) k/cumm Absolute Lymphocytes (1.2-3.4) k/cumm Absolute Monocytes (0.11-0.7) k/cumm Absolute Eosinophils (0.0-0.7) k/cumm Absolute Basophils (0.0-0.2) k/cumm RBC Morphology Anisocytosis Sodium (136-145) mmol/L 135 L Potassium (3.5-5.1) mmol/L 6.3 H* Chloride (98-107) mmol/L 108 H Carbon Dioxide (21.0-32.0) mmol/L 17.3 L Anion Gap (3-11) mmol/L 9.7 BUN (7-18) mg/dL 72 H Creatinine (0.70-1.30) mg/dL 2.84 H Estimated GFR/1.73 m2 (mL/min/1.73m2) 22.93 Glucose (70-100) mg/dL 278 H Lactate (0.6-1.4) mmol/L 0.8 Calcium (8.5-10.1) mg/dL 8.3 L Magnesium (1.8-2.4) mg/dL 2.2 Total Bilirubin (0.2-1.0) mg/dL 0.2 AST (15-37) U/L 8 L ALT (12-78) U/L 16 Alkaline Phosphatase (46-116) U/L 160 H Ammonia (11-32) umol/L 24 Troponin I (0.00-0.06) ng/mL 0.07 H C-Reactive Protein (0.0-0.3) mg/dL 6.08 H Total Protein (6.4-8.2) g/dL 6.5 Albumin (3.4-5.0) g/dL 2.6 L Urine Color (Yellow) Urine Clarity Urine pH (5-8) Ur Specific [place] (1.005-1.025) Urine Protein (Negative) mg/dL Urine Ketones (Negative) mg/dL Urine Blood (Negative) Urine Nitrite (Negative) Urine Bilirubin (Negative) Urine Urobilinogen (Up TO 0.2) EU/dL Ur Leukocyte Esterase (Negative) Urine RBC (0-2) Urine WBC (0-5) HPF Ur Epithelial Cells (Negative) HPF Urine Crystals (Negative) HPF Urine Bacteria (Negative) HPF Urine Casts (Negative) LPF Urine Mucus (Negative) Urine Other (Negative) Ur Culture Indicated? Urine Glucose (Negative) mg/dL Acetaminophen (10-30) ug/mL Ethyl Alcohol (<3) mg/dL < 3.0 Range/Units 04/25/18 04/25/18 04/25/18 20:43 20:43 20:59 WBC (4.4-10.8) k/cumm 20.01 H RBC (4.50-6.00) m/cumm 4.53 Hgb (13.5-17.5) g/dL 11.0 L Hct (40.0-50.0) % 36.1 L MCV (80-95) fL 79.7 L MCH (27.0-33.0) pg 24.3 L MCHC (32.0-36.0) g/dL 30.5 L RDW (11.8-14.1) % 19.5 H Plt Count (130-400) x1000/uL 259 MPV (8.0-11.0) fL 10.6 Immature Gran % 1.8 Neutrophils % 93.9 Lymphocytes % 1.6 Monocytes % 2.6 Eosinophils % 0.0 Basophils % 0.1 Absolute Neutrophils (1.2-6.7) k/cumm 18.79 H Absolute Lymphocytes (1.2-3.4) k/cumm 0.32 L Absolute Monocytes (0.11-0.7) k/cumm 0.52 Absolute Eosinophils (0.0-0.7) k/cumm 0.00 Absolute Basophils (0.0-0.2) k/cumm 0.02 RBC Morphology See below Anisocytosis 1+ Sodium (136-145) mmol/L Potassium (3.5-5.1) mmol/L Chloride (98-107) mmol/L Carbon Dioxide (21.0-32.0) mmol/L Anion Gap (3-11) mmol/L BUN (7-18) mg/dL Creatinine (0.70-1.30) mg/dL Estimated GFR/1.73 m2 (mL/min/1.73m2) Glucose (70-100) mg/dL Lactate (0.6-1.4) mmol/L Calcium (8.5-10.1) mg/dL Magnesium (1.8-2.4) mg/dL Total Bilirubin (0.2-1.0) mg/dL AST (15-37) U/L ALT (12-78) U/L Alkaline Phosphatase (46-116) U/L Ammonia (11-32) umol/L Troponin I (0.00-0.06) ng/mL C-Reactive Protein (0.0-0.3) mg/dL Total Protein (6.4-8.2) g/dL Albumin (3.4-5.0) g/dL Urine Color (Yellow) Yellow Urine Clarity Sl cloudy Urine pH (5-8) 6.0 Ur Specific [place] (1.005-1.025) 1.015 Urine Protein (Negative) mg/dL 100 H Urine Ketones (Negative) mg/dL Negative Urine Blood (Negative) Trace-lysed H Urine Nitrite (Negative) Negative Urine Bilirubin (Negative) Negative Urine Urobilinogen (Up TO 0.2) EU/dL 0.2 Ur Leukocyte Esterase (Negative) Moderate H Urine RBC (0-2) 0-2 Urine WBC (0-5) HPF 20-50 Ur Epithelial Cells (Negative) HPF Rare Urine Crystals (Negative) HPF Negative Urine Bacteria (Negative) HPF Moderate Urine Casts (Negative) LPF Negative Urine Mucus (Negative) Negative Urine Other (Negative) Few renal Ur Culture Indicated? Yes Urine Glucose (Negative) mg/dL Negative Acetaminophen (10-30) ug/mL 5 L Ethyl Alcohol (<3) mg/dL 04/25/18 04/25/18 04/25/18 20:43 20:43 20:43 Sodium 135 L Potassium 6.3 H* Chloride 108 H Carbon Dioxide 17.3 L Anion Gap 9.7 BUN 72 H Creatinine 2.84 H Estimated GFR/1.73 m2 22.93 Glucose 278 H Lactate 0.8 Calcium 8.3 L Magnesium 2.2 Total Bilirubin 0.2 AST 8 L ALT 16 Alkaline Phosphatase 160 H Ammonia 24 Troponin I 0.07 H C-Reactive Protein 6.08 H Total Protein 6.5 Albumin 2.6 L Urine Color Urine Clarity Urine pH Ur Specific [place] Urine Protein Urine Ketones Urine Blood Urine Nitrite Urine Bilirubin Urine Urobilinogen Ur Leukocyte Esterase Urine RBC Urine WBC Ur Epithelial Cells Urine Crystals Urine Bacteria Urine Casts Urine Mucus Urine Other Ur Culture Indicated? Urine Glucose Acetaminophen Ethyl Alcohol < 3.0 04/25/18 04/25/18 20:43 20:59 Sodium Potassium Chloride Carbon Dioxide Anion Gap BUN Creatinine Estimated GFR/1.73 m2 Glucose Lactate Calcium Magnesium Total Bilirubin AST ALT Alkaline Phosphatase Ammonia Troponin I C-Reactive Protein Total Protein Albumin Urine Color Yellow Urine Clarity Sl cloudy Urine pH 6.0 Ur Specific [place] 1.015 Urine Protein 100 H Urine Ketones Negative Urine Blood Trace-lysed H Urine Nitrite Negative Urine Bilirubin Negative Urine Urobilinogen 0.2 Ur Leukocyte Esterase Moderate H Urine RBC 0-2 Urine WBC 20-50 Ur Epithelial Cells Rare Urine Crystals Negative Urine Bacteria Moderate Urine Casts Negative Urine Mucus Negative Urine Other Few renal Ur Culture Indicated? Yes Urine Glucose Negative Acetaminophen 5 L Ethyl Alcohol ECG Data Attestation: I personally reviewed and interpreted this ECG (s) as follows: Prior ECG tracings: available for review Interpretation: Regular sinus bradycardia with borderline first-degree AV block, Elevations Peaked T Waves Present in V1 through V3 but Similar to Previous Dated January 26, 2018 HPI General Mode of arrival: EMS . Date/Time Provider Initiated Documentation: 04/25/18 20:28 . Limitations to Documentation: altered mental status . Information obtained by: patient, EMS, RN notes reviewed and old records re viewed . History of Present Illness described as moderate, Quality is described as constant, Patient started experiencing this day(s) and it has been constant. No relieving factors improve symptom(s), No exacerbating factors reported . Patient notes weakness; denies cough, fever/chills and rash. Patient did receive the following treatments prior to arrival, other (Has been taking Tylenol) Related Data Home Medications Medication Instructions Recorded Confirmed aspirin [Aspirin Low Dose] 81 mg PO BID 12/23/17 04/10/18 carbamazepine 100 mg PO TID 12/23/17 04/10/18 cyanocobalamin (vitamin B-12) 1,000 mcg PO DAILY 12/23/17 04/25/18 folic acid 1 mg PO DAILY 12/23/17 04/25/18 loperamide 2 mg PO QID PRN 12/23/17 04/25/18 omeprazole 20 mg PO DAILY 12/23/17 04/25/18 amlodipine 10 mg PO DAILY #0 tab 12/31/17 04/10/18 clonidine HCl [Catapres] 0.3 mg PO TID #0 tab 12/31/17 04/10/18 ferrous sulfate 325 mg PO BID #0 tab 12/31/17 04/25/18 acetaminophen [Tylenol] 325 - 650 mg PO Q4H PRN PRN #0 tab 02/10/18 04/25/18 hydralazine 10 mg PO TID #0 tab 02/10/18 04/25/18 hydroxyzine HCl 25 mg PO Q6H PRN PRN #0 tab 02/10/18 04/10/18 magnesium chloride [Mag 64] 64 mg PO BID #0 tab 02/10/18 04/25/18 terazosin 4 mg PO BID #0 cap 02/10/18 04/25/18 Centrum Complete 1 tab PO DAILY 03/01/18 04/25/18 Lantus Solostar U-100 Insulin 60 unit SUBCUT DAILY 03/01/18 04/25/18 Novolog Flexpen U-100 Insulin 0 units SUBCUT 0730,1130,1630 03/01/18 04/25/18 ascorbic acid (vitamin C) [Vitamin 1 tab PO BID 03/01/18 04/10/18 C] ergocalciferol (vitamin D2) See Rx Instructions .ROUTE .COMPLEX 03/01/18 04/10/18 [Vitamin D2] levothyroxine 0.5 tab PO DAILY 03/01/18 04/25/18 metoprolol succinate 25 mg PO DAILY 03/03/18 04/25/18 venlafaxine 75 mg PO DAILY 03/03/18 04/25/18 acidophilus-pectin, citrus 1 cap PO TID #0 tab 03/24/18 04/25/18 furosemide 20 mg PO BID@0830,1600 #0 tab 03/24/18 04/25/18 prednisone 50 mg PO DAILY 04/25/18 04/25/18 Previous Rx's Medication Instructions Recorded amlodipine 10 mg PO DAILY #0 tab 12/31/17 clonidine HCl [Catapres] 0.3 mg PO TID #0 tab 12/31/17 ferrous sulfate 325 mg PO BID #0 tab 12/31/17 acetaminophen [Tylenol] 325 - 650 mg PO Q4H PRN PRN #0 tab 02/10/18 hydralazine 10 mg PO TID #0 tab 02/10/18 hydroxyzine HCl 25 mg PO Q6H PRN PRN #0 tab 02/10/18 magnesium chloride [Mag 64] 64 mg PO BID #0 tab 02/10/18 terazosin 4 mg PO BID #0 cap 02/10/18 acidophilus-pectin, citrus 1 cap PO TID #0 tab 03/24/18 furosemide 20 mg PO BID@0830,1600 #0 tab 03/24/18 Allergies Allergy/AdvReac Type Severity Reaction Status Date / Time No Known Allergies Allergy Unverified 04/10/18 02:14 General Stated Complaint: AMS/LOC YVES: 3 Review of Systems Review of Systems 6 systems reviewed and otherwise neg [facility] Medical History MRSA bacteremia (Resolved) Diabetic foot ulcer (Chronic) Poorly controlled type 2 diabetes mellitus with circulatory disorder (Chronic) CKD (chronic kidney disease) (Chronic) Cardiopulmonary arrest with successful resuscitation (Resolved) Heme positive stool (Chronic) Pedal edema (Chronic) Chronic insomnia (Chronic) Hypertension (Chronic) Chronic pain (Chronic) Hypothyroidism (Chronic) Obesity (Chronic) Back pain (Chronic 06/21/13) Inability to get out of bed (Chronic 06/21/13) Poor self care (Chronic 06/21/13) Chronic bipolar disorder (Chronic) CAD (coronary artery disease) (Chronic) Dyslipidemia (Chronic) Rheumatoid arthritis (Chronic) Osteoarthritis of both knees (Chronic) Cholelithiasis (Chronic) Impaired mobility and ADLs (Chronic) Hemorrhagic cystitis (Inactive) Anemia (Chronic) Chronic anxiety (Chronic) Ulcerative colitis (Chronic) Surgical History History of insertion of T-tube into biliary tract (Chronic) S/P colectomy (Chronic) Arthroplasty of knee (Resolved 03/18/12) Fracture, Open Treatment (Resolved) Social History housing: shelter Smoking and Tabacco status: Never Exam Narrative Exam Narrative: GEN: awake, alert, conversive. Pleasant, poorly groomed, interactive. HEAD: Normocephalic, atraumatic ENT: Mucous membranes dry, External ear exam unremarkable EYES: PERRL, EOMI NECK: Full ROM, no ETELVINA, no menigismus CHEST/RESP: Nontender, clear to auscultation bilateral, no wheeze/rhonchi/rales. Distant. CARDIOVASCULAR: RRR, no murmur, rub ambrose. 2+ Rad pulse bilateral ABDOMEN: Soft, nontender, no mass. +Bowel sounds. Right upper quadrant percutaneous drain intact with approximately 100 cc fluid in bag. Colostomy intact with stool per EXT: Full ROM, healing ulcerations of feet without discharge or surrounding area Neuro: Grossly normal neurologic exam, conversant, interactive. Follows commands. Psych: Speech fluent, thoughts congruent, affect flat Course Vital Signs Temperature 36.4 C L 04/25/18 20:30 Pulse 56 L 04/25/18 20:30 Respiratory Rate 20 04/25/18 20:30 Blood Pressure 133/56 L 04/25/18 20:30 Pulse Oximetry 95 04/25/18 20:30 Temperature 36.4 C L 04/25/18 20:30 Temperature Source Axillary 04/25/18 20:30 Pulse 56 L 04/25/18 20:30 Respiratory Rate 20 04/25/18 20:30 Respiratory Effort 04/25/18 20:37 Blood Pressure 133/56 L 04/25/18 20:30 Blood Pressure Position Supine 04/25/18 20:30 Pulse Oximetry 95 04/25/18 20:30 Oxygen Delivery Method Room Air 04/25/18 20:30 Oxygen Flow Rate 0 04/25/18 20:30
--- NOTE | 2018-04-25 21:06 | NUR.NOTE ---
Nursing Note: pt more awake, voiding in urinal with assistance. wounds noted to toes, dsg intact from halfway. colostomy appliance intact.
[2018-04-25 21:12] LABS: Bilirubin Negative (Negative); Blood Trace-lysed (Negative); Clarity Sl Cloudy; Glucose Negative (Negative); Ketones Negative (Negative); Leukocyte Esterase Moderate (Negative); Nitrite Negative (Negative); Specific Gravity 1.015 (1.005-1.025); Urobilinogen 0.2 EU/dL (Up TO 0.2)
[2018-04-25 21:17] LABS: Abs Immature Grans 0.37 k/cumm (0.0-0.09); Absolute Basophil Count 0.02 k/cumm (0.0-0.2); Absolute Monocyte Count 0.52 k/cumm (0.11-0.7); Basophils % 0.1; HCT 36.1 % (40.0-50.0); Immature Grans % 1.8; Lymphocytes % 1.6; Mean Corp. HGB Concentration 30.5 g/dL (32.0-36.0); Mean Corpuscular Hemoglobin 24.3 pg (27.0-33.0); Mean Corpuscular Volume 79.7 fL (80-95); Mean Platelet Volume 10.6 fL (8.0-11.0); Monocytes % 2.6; Neutrophils % 93.9; Platelet Count 259 x1000/uL (130-400); RBC 4.53 m/cumm (4.50-6.00); RBC Distribution Width 19.5 % (11.8-14.1); White Blood Cell Count 20.01 k/cumm (4.4-10.8)
[2018-04-25 21:18] LABS: Ammonia 24 umol/L (11-32)
[2018-04-25 21:22] LABS: ALT 16 U/L (12-78); AST 8 U/L (15-37); Albumin 2.6 g/dL (3.4-5.0); Alkaline Phosphatase 160 U/L (46-116); Anion Gap 9.7 mmol/L (3-11); BUN 72 mg/dL (7-18); Bilirubin, Total 0.2 mg/dL (0.2-1.0); C-Reactive Protein 6.08 mg/dL (0.0-0.3); CO2 17.3 mmol/L (21.0-32.0); CREATININE 2.84 mg/dL (0.70-1.30); Calcium 8.3 mg/dL (8.5-10.1); Chloride 108 mmol/L (98-107); Estimated GFR 22.93 (mL/min/1.73m2); Glucose 278 mg/dL (70-100); Magnesium 2.2 mg/dL (1.8-2.4); Sodium 135 mmol/L (136-145); Total Protein 6.5 g/dL (6.4-8.2)
[2018-04-25 21:23] LABS: Lactate 0.8 mmol/L (0.6-1.4)
[2018-04-25 21:29] LABS: Acetaminophen 5 ug/mL (10-30)
[2018-04-25 21:34] LABS: Bacteria Moderate HPF (Negative); C & S Indicated? Yes; Casts Negative LPF (Negative); Crystals Negative HPF (Negative); Epithelial Cells Rare HPF (Negative); Mucus Negative (Negative); Other Cells Few Renal (Negative); RBC 0-2 (0-2); WBC 20-50 HPF (0-5)
[2018-04-25 21:37] LABS: ETHANOL BLOOD < 3.0 mg/dL (<3); Potassium 6.3 mmol/L (3.5-5.1)
[2018-04-25 21:38] LABS: Troponin I 0.07 ng/mL (0.00-0.06)
[2018-04-25 21:41] LABS: Absolute Lymphocyte Count 0.32 k/cumm (1.2-3.4); Absolute Neutrophil Count 18.79 k/cumm (1.2-6.7)
[2018-04-25 21:42] LABS: Anisocytosis 1+
--- NOTE | 2018-04-25 22:25 | DI.VRAD_ITS ---
EXAM: CT Head Without Contrast EXAM DATE/TIME: 04/25/2018 8:41 PM CLINICAL HISTORY: 58 years old, male; Signs and symptoms; Other: Ms changes, ruq drain, immobility. TECHNIQUE: Axial computed tomography images of the head/brain without contrast. Coronal and sagittal reformatted images were created and reviewed. COMPARISON: CT HEAD WO 01/26/2018 6:23 PM FINDINGS: Brain: No evidence for acute transcortical infarct. No mass effect or midline shift. No extra-axial collection. No acute intracranial hemorrhage. Basal cisterns are patent. Ventricles: Normal. No ventriculomegaly. Bones/joints: Unremarkable. No acute fracture. Sinuses: Visualized sinuses are unremarkable. No acute sinusitis. Mastoid air cells: Visualized mastoid air cells are unremarkable. No mastoid effusion. Soft tissues: Unremarkable. IMPRESSION: No evidence for acute transcortical infarct, acute intracranial hemorrhage, or mass effect. Dictated and Authenticated by: David Savage MD. Ordering:AYUSH Mnacera MD
[2018-04-25 23:37] LABS: Troponin I 0.06 ng/mL (0.00-0.06)
--- NOTE | 2018-04-25 23:39 | NUR.NOTE ---
Nursing Note: Pt sleeping in bed. no acute changes. IV abx infusing. vss. will continue to monitor.
--- NOTE | 2018-04-25 23:51 | DI.VRAD_ITS ---
EXAM: CT Chest Without Contrast EXAM DATE/TIME: 04/25/2018 9:41 PM CLINICAL HISTORY: 58 years old, male; Signs and symptoms; Other: Ms changes, ruq drain, immobility. TECHNIQUE: Axial computed tomography images of the chest without intravenous contrast. Coronal and sagittal reformatted images were created and reviewed. COMPARISON: CT chest/abd/pel wo 12/23/2017 10:18 PM FINDINGS: Lungs: Peribronchial cuffing is present which is nonspecific, and which may reflect acute or chronic bronchial inflammation. Alternatively, this may reflect an element of reactive airways disease. Basilar dependent pulmonary atelectasis is present. Pleural space: Small right pleural effusion Heart: Normal. No cardiomegaly. No pericardial effusion. Aorta: Normal. No aortic aneurysm. Lymph nodes: Calcified mediastinal and hilar nodes compatible with previous granulomatous disease Shotty axillary nodes bilaterally Bones/joints: Bilateral anterior rib fracture deformities Soft tissues: Unremarkable. Liver: Heterogeneous appearance of the liver is noted. This may reflect hepatocellular disease. Discrete lesion is difficult to exclude although artifact contributes to the appearance created by the presence of the arms at the sides. Evaluation of hepatic enzymes recommended. Sonogram could be performed to assess for discrete hepatic lesions which if present would require further evaluation with a contrast-enhanced CT or MRI. Gallbladder and bile ducts: Cholecystostomy catheter in place in a collapsed gallbladder which demonstrates pericholecystic stranding Upper abdomen: Stoma noted in the right lower quadrant in patient status post partial colectomy. Equivocal diverticuli are noted in the left abdomen IMPRESSION: 1. Nonspecific peribronchial cuffing. 2. Heterogeneous appearance of the liver is noted. This may reflect hepatocellular disease. Discrete lesion is difficult to exclude although artifact contributes to the appearance created by the presence of the arms at the sides. Evaluation of hepatic enzymes recommended. Sonogram could be performed to assess for discrete hepatic lesions which if present would require further evaluation with a contrast-enhanced CT or MRI. EXAM: CT Abdomen and Pelvis Without Contrast EXAM DATE/TIME: 04/25/2018 9:41 PM CLINICAL HISTORY: 58 years old, male; Signs and symptoms; Other: Ms changes, ruq drain, immobility. TECHNIQUE: Axial computed tomography images of the abdomen and pelvis without contrast. Coronal and sagittal reformatted images were created and reviewed. COMPARISON: CT chest/abd/pel wo 12/23/2017 10:18 PM FINDINGS: Lower thorax: No acute findings. ABDOMEN: Liver: Equivocal nodular appearance of the liver. Correlate with hepatic enzymes to exclude cirrhosis. No mass. Gallbladder and bile ducts: Normal. No calcified stones. No ductal dilation. Pancreas: Normal. No ductal dilation. Spleen: Normal. No splenomegaly. Adrenals: Normal. No mass. Kidneys and ureters: Normal. No hydronephrosis. Stomach and bowel: Normal. No obstruction. No mucosal thickening. Appendix: No evidence of appendicitis. PELVIS: Bladder: Unremarkable as visualized. Reproductive: Unremarkable as visualized. ABDOMEN and PELVIS: Intraperitoneal space: Normal. No free air. No significant fluid collection. Bones/joints: No acute fracture. No dislocation. L2/3 fusion Soft tissues: Unremarkable. Vasculature: Normal. No abdominal aortic aneurysm. Lymph nodes: Normal. No enlarged lymph nodes. IMPRESSION: No acute findings. Patient status post partial colectomy with stoma. Cholecystostomy tube placed with pericholecystic stranding Dictated and Authenticated by: Billy Kwong MD. Ordering:AYUSH Mancera MD
[2018-04-26] VITALS (42 sets, daily range): BP systolic 138–216; BP diastolic 59–139; PULSE 56–81; RESP 13–26; TEMP 36.2–37.5; O2SAT 93–96
--- NOTE | 2018-04-26 00:19 | NUR.NOTE ---
Nursing Note: ruiz cath inserted . bilateral heels/feet elevated for comfort. IVF infusing. repeat blood work being processed. plan for admission to med surg unit
[2018-04-26 00:28] LABS: Anion Gap 11.5 mmol/L (3-11); BUN 66 mg/dL (7-18); CO2 15.5 mmol/L (21.0-32.0); Calcium 7.1 mg/dL (8.5-10.1); Chloride 113 mmol/L (98-107); Estimated GFR 26.57 (mL/min/1.73m2); Glucose 286 mg/dL (70-100); Potassium 5.1 mmol/L (3.5-5.1); Sodium 140 mmol/L (136-145)
[2018-04-26 00:52] LABS: Lactate-non-spesis 0.7 mmol/l (0.6-1.4)
[2018-04-26] MEDS: VANCOMYCIN 1,000 MG in Normal Saline 250 ML 166.6666 MG IVPB (01:03)
[2018-04-26 01:17] LABS: Bilirubin Negative (Negative); Blood Trace-lysed (Negative); Clarity Sl Cloudy; Glucose Negative (Negative); Ketones Negative (Negative); Leukocyte Esterase Small (Negative); Nitrite Negative (Negative); Specific Gravity 1.015 (1.005-1.025); Urobilinogen 0.2 EU/dL (Up TO 0.2); pH 5.5 (5-8)
[2018-04-26 01:28] LABS: Bacteria Few HPF (Negative); Casts 0-2 Coarse Granular LPF (Negative); Crystals Negative HPF (Negative); Epithelial Cells Negative HPF (Negative); Mucus Negative (Negative); Other Cells Few Yeast (Negative); RBC 0-2 (0-2); WBC >50 HPF (0-5)
[2018-04-26 01:29] LABS: C & S Indicated? Yes
--- NOTE | 2018-04-26 01:44 | W.PM.HP.N ---
Date of service: 04/26/18 Time of Service: 01:45 Assessment and Plan (1) UTI (urinary tract infection): Current visit: Yes Status: Acute cover w/ broad spectrum antibiotics including Vancomycin (d/t hx of MRSA and Enterococcus) and Meropenem (to cover for potential ESBL uti and biliary tract. (2) Toxic metabolic encephalopathy: Current visit: No Status: Acute Patient is somewhat lethargic but arouseable and gives reasonable answers to my questions but has difficulty sustaining conversation. I suspect that this is due to underlying infection in addition to his baseline affect. Although we suspected sepsis he has remained hemodynamically stable and his repeat lactate has remained normal. We will continue to workup for acute infection, probably UTI but can not exclude worsening biliary disease. Blood and urine cultures and biliary fluid cultures have been sent and patient has been started on Vancomycin and Meropenem. (3) Metabolic acidosis: Current visit: No Status: Acute probably d/t underlying infection. Troponins have been normal and so far his lactate level is still normal. 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 I have put him on stress dose steroids to cover for his acute illness. After 3 to 5 days his steroids hand winder be returned to oral prednisone and continue his taper. (5) Acute on chronic kidney failure: Current visit: No Status: Acute continue iv fluids and monitor his UO and daily BMP; if no significant improvement then get renal US (6) Poorly controlled type 2 diabetes mellitus with circulatory disorder: Current visit: No Status: Chronic monitor w/ frequent blood sugars; cover meal time CHO w/ novolog and give high dose (insulin resistant) sliding scale History of Present Illness Chief Complaint: progressive lethargy, declining health Narrative: 58 yr old male resident of [facility] in [place], [place] who has extensive PMH including chronic cholecystitis requiring indwelling cholecystostomy tube, Strep Group C bacteremia and MRSA bacteremia, prior nonhealing diabetic foot ulcer, s/p debridement of R. 5th MPJ (wound culture positive for MRSA and Proteus mirabilis), adrenal insufficiency d/t chronic steroid use for RA, recent HCPA, DM type II requiring insulin jail and w/ CKD, recent JESUS, Crohn's disease w/ colostomy, HTN, CAD, hypothyroidism, obesity, chronic pain and recurrent UTI's including Enterococcus faecalis, and prior CP arrest necessitating transfer [place] [facility] [place]. The patient now presents to the ER from [facility] w/ 1 week history of malaise, decreased ADL performance and progressive lethargy. Upon arrival to the ER he was seen by Dr. Calderon Del Cid and was found to be afebrile at 36.4, not tachycardic HR 56 and with stable BP of 133/56 with oxygen saturation of 95%. He was found to be conversant and interactive but mildly lethargic. Because of his indwelling cholecystostomy tube and prior sepsis from UTI and HCAP he was worked up for possible sepis. He was found to be azotemic w/ increased creatinine of 2.8, BUN 72 and mildly hyperkalemic at 6.3. EKG demonstrated sinus bradycardia at 58 bpm w/ diffusely peaked T waves across precordial leads. He was treated w/ kayexalate 15 gm and given iv fluids. His WBC is elevated at 20,000 and his UA is c/w UT (pyuria, trace blood, small leukocyte esterace, few bacteria but negative for nitrites and neg. for ketones and glucose). His CMP was remarkable for low CO2 of 17 but his lactate was normal at 0.8. Blood and urine cultures were obtained and patient was started on Ceftriaxone. His troponin levels were normal at 0.07 and 0.06. Repeat BMP demonstrated a decline in his potassium level to 5.1 but his AG is elevated at 11.5 with CO2 of 15. After discussing the case w/ Dr. Del Cid and reviewing the patient's prior wound, blood and urine cultures in February. I requested that the patient be started on Vancomycin and a carbapenem. The patient has remained hemodynamically stable and I agreed to accept the patient to med/surg for treatment of presumptive UTI and dehydration w/ azotemia. I am still concerned that he may become septic as he has in the past but his repeat lactate remained normal. Hopefully he has arrived early enough in his infection that he will respond to antibiotics. DR. Del Cid indicated that he did a thorough examination of his skin and could not find any open wounds. I requested that his biliary drainage be sent for cultures as well given his chronic cholecystitis. He had a CT of his head and abdomen and pelvis. CT of his head was negative for acute transcortical infarct or hemorrhage or mass effect. His CT of his abdomen and pelvis and chest showed nonspecific peribronchial cuffing. Heterogenous appearance to his liver suggestive of chronic hepatocellular disease, GB and bile ducts demonstrated cholecystostomy catheter in place and collapsed gall bladder with pericholecystic stranding. Stoma in RLQ s/p partial colectomy with equivocal diverticuli in left abdomen. Review of Systems Review of Systems limited ROS d/t patient remains lethargic and difficulty in getting him to sustain attention to my questions Constitutional Reports daytime sleepiness, Reports fatigue, Reports fever(s), Denies headache(s) and Reports malaise ENT Denies headache(s) Cardiovascular Denies chest pain, Denies lightheadedness and Denies dyspnea Respiratory Reports cough and Denies dyspnea Gastrointestinal Denies abdominal pain Musculoskeletal Reports tingling Neurologic Reports burning sensations, Denies headache(s) and Reports tingling Endocrine Reports fatigue [facility] Medical History MRSA bacteremia (Resolved) Diabetic foot ulcer (Chronic) Poorly controlled type 2 diabetes mellitus with circulatory disorder (Chronic) CKD (chronic kidney disease) (Chronic) Cardiopulmonary arrest with successful resuscitation (Resolved) Heme positive stool (Chronic) Pedal edema (Chronic) Chronic insomnia (Chronic) Hypertension (Chronic) Chronic pain (Chronic) Hypothyroidism (Chronic) Obesity (Chronic) Back pain (Chronic 06/21/13) Inability to get out of bed (Chronic 06/21/13) Poor self care (Chronic 06/21/13) Chronic bipolar disorder (Chronic) CAD (coronary artery disease) (Chronic) Dyslipidemia (Chronic) Rheumatoid arthritis (Chronic) Osteoarthritis of both knees (Chronic) Cholelithiasis (Chronic) Impaired mobility and ADLs (Chronic) Hemorrhagic cystitis (Inactive) Anemia (Chronic) Chronic anxiety (Chronic) Ulcerative colitis (Chronic) Surgical History History of insertion of T-tube into biliary tract (Chronic) S/P colectomy (Chronic) Arthroplasty of knee (Resolved 03/18/12) Fracture, Open Treatment (Resolved) Social History [facility] Smoking and Tabacco status: Never Meds Home Medications Medication Instructions Recorded Confirmed Type aspirin [Aspirin Low Dose] 81 mg PO BID 12/23/17 04/10/18 History carbamazepine 100 mg PO TID 12/23/17 04/10/18 History cyanocobalamin (vitamin B-12) 1,000 mcg PO DAILY 12/23/17 04/25/18 History folic acid 1 mg PO DAILY 12/23/17 04/25/18 History loperamide 2 mg PO QID PRN 12/23/17 04/25/18 History omeprazole 20 mg PO DAILY 12/23/17 04/25/18 History amlodipine 10 mg PO DAILY #0 tab 12/31/17 04/10/18 Rx clonidine HCl [Catapres] 0.3 mg PO TID #0 tab 12/31/17 04/10/18 Rx ferrous sulfate 325 mg PO BID #0 tab 12/31/17 04/25/18 Rx acetaminophen [Tylenol] 325 - 650 mg PO Q4H PRN PRN #0 tab 02/10/18 04/25/18 Rx hydralazine 10 mg PO TID #0 tab 02/10/18 04/25/18 Rx hydroxyzine HCl 25 mg PO Q6H PRN PRN #0 tab 02/10/18 04/10/18 Rx magnesium chloride [Mag 64] 64 mg PO BID #0 tab 02/10/18 04/25/18 Rx terazosin 4 mg PO BID #0 cap 02/10/18 04/25/18 Rx Centrum Complete 1 tab PO DAILY 03/01/18 04/25/18 History Lantus Solostar U-100 Insulin 60 unit SUBCUT DAILY 03/01/18 04/25/18 History Novolog Flexpen U-100 Insulin 0 units SUBCUT 0730,1130,1630 03/01/18 04/25/18 History ascorbic acid (vitamin C) [Vitamin 1 tab PO BID 03/01/18 04/10/18 History C] ergocalciferol (vitamin D2) See Rx Instructions .ROUTE .COMPLEX 03/01/18 04/10/18 History [Vitamin D2] levothyroxine 0.5 tab PO DAILY 03/01/18 04/25/18 History metoprolol succinate 25 mg PO DAILY 03/03/18 04/25/18 History venlafaxine 75 mg PO DAILY 03/03/18 04/25/18 History acidophilus-pectin, citrus 1 cap PO TID #0 tab 03/24/18 04/25/18 Rx furosemide 20 mg PO BID@0830,1600 #0 tab 03/24/18 04/25/18 Rx prednisone 50 mg PO DAILY 04/25/18 04/25/18 History Allergies Allergy/AdvReac Type Severity Reaction Status Date / Time No Known Allergies Allergy Unverified 04/10/18 02:14 Exam Const General: no acute distress, disheveled, ill appearing chronically and lethargic Nutritional Appearance: obese Orientation: awake, oriented to person and oriented to place Limitations: altered mental status [facility] Head: normocephalic and atraumatic Ears: EAC abnormal excessive cerumen bilaterally General nose exam: external nose normal and mucous membranes and turbinates abnormal erythematous Face and sinus: normal facial exam Mouth: malodorous breath, oral mucosa abnormal other (dry) and tongue abnormal other (dry) Teeth and gingiva: poor dentition (missing most of his teeth, remaining teeth in poor repair) Throat: posterior oropharynx normal Eyes General: appearance normal, both eyes and all related structures Visual Barnard: normal visual barnard by confrontation Alignment and Position: alignment normal Periorbital: periorbital findings normal Eyelids: eyelids normal Conjunctivae: conjunctivae normal Sclera: sclerae normal Cornea: corneas normal Pupils: PERRL EOM: EOM intact bilaterally Direct ophthalmoscopy: normal light reflex Neck Neck: normal visual inspection, full ROM, no lymphadenopathy, no meningeal signs, trachea midline and no JVD Carotids: normal carotid upstroke Lymphatic: no lymphadenopathy noted Chest Chest: abnormal inspection of the chest erythema (diffuse folliculitis) Resp Effort & Inspection: normal respiratory effort and able to speak in complete sentences Auscultation: clear to auscultation bilaterally Cardio Jugular venous pressure: no JVD Palpation: normal PMI Rate: regular rate Rhythm: regular rhythm Heart Sounds: S1 normal, S2 normal and murmur systolic early, III/ and at the apex Bruits: no abdominal aortic bruits and no carotid bruits Pulses: normal peripheral pulses GI Inspection: obesity and other (cholecystostomy tube in RUQ draining clear bilious fluid, skin ok) Palpation: soft, no hepatosplenomegaly, no guarding and nontender Percussion: normal to percussion Auscultation: normal bowel sounds Rectal Exam: other (colostomy draining light brown liquid stool, colostomy bag leaking) Skin General skin exam: dry skin Lesions: lesion noted ulcer right plantar great toe borders well-defined, color flesh-colored, consistency firm, morphology annular and raised and surface crusted and dry; nontender Rashes: rashes noted (chronic stasis dermatitis changes over both lower legs) bilateral mid lower leg color brawny brown Hair: other (dandruff and eczema over scalp) Nails: dystrophic (thickened and yellow toenails) and yellow and thickened Extrem Right lower extremity: foot Details: abnormal to inspection Details: a deformity Location: of the great toe and of the hallux valgus Left lower extremity: foot Details: abnormal to inspection Details: a deformity Location: of the great toe and of the hallux valgus Psych Appearance: disheveled Mental Status: other (lethargic but arouseable and oriented to person and place) Speech and Movement: speech and movement normal Mood: other (lethargic but arouseable and oriented to person and place) Affect: normal affect Attitude: cooperative Thought Process: normal Thought Content: normal Insight: fair Judgment: fair Results Imaging Abdomen CT scan report/results: report reviewed (IMPRESSION: 1. Nonspecific peribronchial cuffing. 2. Heterogeneous appearance of the liver is noted. This may reflect hepatocellular disease. Discrete lesion is difficult to exclude although artifact contributes to the appearance created by the presence of the arms at the sides. Evaluation of h) CT scan - chest: report reviewed Additional studies: CT head w/out contrast: IMPRESSION: No evidence for acute transcortical infarct, acute intracranial hemorrhage, or mass effect. Dictated and Authenticated by: David Savage MD. IMPRESSION: No evidence for acute transcortical infarct, acute intracranial hemorrhage, or mass effect. Dictated and Authenticated by: David Savage MD. Labs : 04/25/18 20:43 04/25/18 23:10 Laboratory Results - last 24 hr 04/25/18 04/25/18 04/25/18 20:43 20:43 20:43 WBC RBC Hgb Hct MCV MCH MCHC RDW Plt Count MPV Immature Gran % Neutrophils % Lymphocytes % Monocytes % Eosinophils % Basophils % Absolute Neutrophils Absolute Lymphocytes Absolute Monocytes Absolute Eosinophils Absolute Basophils RBC Morphology Anisocytosis Sodium 135 L Potassium 6.3 H* Chloride 108 H Carbon Dioxide 17.3 L Anion Gap 9.7 BUN 72 H Creatinine 2.84 H Estimated GFR/1.73 m2 22.93 Glucose 278 H Lactate 0.8 Calcium 8.3 L Magnesium 2.2 Total Bilirubin 0.2 AST 8 L ALT 16 Alkaline Phosphatase 160 H Ammonia 24 Troponin I 0.07 H C-Reactive Protein 6.08 H Total Protein 6.5 Albumin 2.6 L Urine Color Urine Clarity Urine pH Ur Specific [place] Urine Protein Urine Ketones Urine Blood Urine Nitrite Urine Bilirubin Urine Urobilinogen Ur Leukocyte Esterase Urine RBC Urine WBC Ur Epithelial Cells Urine Crystals Urine Bacteria Urine Casts Urine Mucus Urine Other Ur Culture Indicated? Urine Glucose Acetaminophen Ethyl Alcohol < 3.0 04/25/18 04/25/18 04/25/18 20:43 20:43 20:59 WBC 20.01 H RBC 4.53 Hgb 11.0 L Hct 36.1 L MCV 79.7 L MCH 24.3 L MCHC 30.5 L RDW 19.5 H Plt Count 259 MPV 10.6 Immature Gran % 1.8 Neutrophils % 93.9 Lymphocytes % 1.6 Monocytes % 2.6 Eosinophils % 0.0 Basophils % 0.1 Absolute Neutrophils 18.79 H Absolute Lymphocytes 0.32 L Absolute Monocytes 0.52 Absolute Eosinophils 0.00 Absolute Basophils 0.02 RBC Morphology See below Anisocytosis 1+ Sodium Potassium Chloride Carbon Dioxide Anion Gap BUN Creatinine Estimated GFR/1.73 m2 Glucose Lactate Calcium Magnesium Total Bilirubin AST ALT Alkaline Phosphatase Ammonia Troponin I C-Reactive Protein Total Protein Albumin Urine Color Yellow Urine Clarity Sl cloudy Urine pH 6.0 Ur Specific [place] 1.015 Urine Protein 100 H Urine Ketones Negative Urine Blood Trace-lysed H Urine Nitrite Negative Urine Bilirubin Negative Urine Urobilinogen 0.2 Ur Leukocyte Esterase Moderate H Urine RBC 0-2 Urine WBC 20-50 Ur Epithelial Cells Rare Urine Crystals Negative Urine Bacteria Moderate Urine Casts Negative Urine Mucus Negative Urine Other Few renal Ur Culture Indicated? Yes Urine Glucose Negative Acetaminophen 5 L Ethyl Alcohol 04/25/18 04/25/18 04/26/18 23:10 23:10 00:47 WBC RBC Hgb Hct MCV MCH MCHC RDW Plt Count MPV Immature Gran % Neutrophils % Lymphocytes % Monocytes % Eosinophils % Basophils % Absolute Neutrophils Absolute Lymphocytes Absolute Monocytes Absolute Eosinophils Absolute Basophils RBC Morphology Anisocytosis Sodium 140 Potassium 5.1 Chloride 113 H Carbon Dioxide 15.5 L Anion Gap 11.5 H BUN 66 H Creatinine 2.50 H Estimated GFR/1.73 m2 26.57 Glucose 286 H Lactate 0.7 Calcium 7.1 L Magnesium Total Bilirubin AST ALT Alkaline Phosphatase Ammonia Troponin I 0.06 C-Reactive Protein Total Protein Albumin Urine Color Urine Clarity Urine pH Ur Specific [place] Urine Protein Urine Ketones Urine Blood Urine Nitrite Urine Bilirubin Urine Urobilinogen Ur Leukocyte Esterase Urine RBC Urine WBC Ur Epithelial Cells Urine Crystals Urine Bacteria Urine Casts Urine Mucus Urine Other Ur Culture Indicated? Urine Glucose Acetaminophen Ethyl Alcohol 04/26/18 01:15 WBC RBC Hgb Hct MCV MCH MCHC RDW Plt Count MPV Immature Gran % Neutrophils % Lymphocytes % Monocytes % Eosinophils % Basophils % Absolute Neutrophils Absolute Lymphocytes Absolute Monocytes Absolute Eosinophils Absolute Basophils RBC Morphology Anisocytosis Sodium Potassium Chloride Carbon Dioxide Anion Gap BUN Creatinine Estimated GFR/1.73 m2 Glucose Lactate Calcium Magnesium Total Bilirubin AST ALT Alkaline Phosphatase Ammonia Troponin I C-Reactive Protein Total Protein Albumin Urine Color Yellow Urine Clarity Sl cloudy Urine pH 5.5 Ur Specific [place] 1.015 Urine Protein 100 H Urine Ketones Negative Urine Blood Trace-lysed H Urine Nitrite Negative Urine Bilirubin Negative Urine Urobilinogen 0.2 Ur Leukocyte Esterase Small H Urine RBC 0-2 Urine WBC >50 Ur Epithelial Cells Negative Urine Crystals Negative Urine Bacteria Few Urine Casts 0-2 coarse granular Urine Mucus Negative Urine Other Few yeast Ur Culture Indicated? Yes Urine Glucose Negative Acetaminophen Ethyl Alcohol Last Vital Signs Temp 37.5 C 04/26/18 01:04 Pulse 73 04/26/18 01:04 Resp 16 04/26/18 01:04 BP 164/69 H 04/26/18 01:04 Pulse Ox 94 L 04/26/18 01:04
--- NOTE | 2018-04-26 01:57 | HPE_ITS ---
Date of service: 04/26/18 Time of Service: 01:45 Assessment and Plan (1) UTI (urinary tract infection): Current visit: Yes Status: Acute cover w/ broad spectrum antibiotics including Vancomycin (d/t hx of MRSA and Enterococcus) and Meropenem (to cover for potential ESBL uti and biliary tract. (2) Toxic metabolic encephalopathy: Current visit: No Status: Acute Patient is somewhat lethargic but arouseable and gives reasonable answers to my questions but has difficulty sustaining conversation. I suspect that this is due to underlying infection in addition to his baseline affect. Although we suspected sepsis he has remained hemodynamically stable and his repeat lactate has remained normal. We will continue to workup for acute infection, probably UTI but can not exclude worsening biliary disease. Blood and urine cultures and biliary fluid cultures have been sent and patient has been started on Vancomycin and Meropenem. (3) Metabolic acidosis: Current visit: No Status: Acute probably d/t underlying infection. Troponins have been normal and so far his lactate level is still normal. 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 I have put him on stress dose steroids to cover for his acute illness. 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 5th MPJ (wound culture positive for MRSA and Proteus mirabilis), adrenal insufficiency d/t chronic steroid use for RA, recent HCPA, DM type II requiring insulin shelter and w/ CKD, recent JESUS, Crohn's disease w/ colostomy, HTN, CAD, hypothyroidism, obesity, chronic pain and recurrent UTI's including Enterococcus faecalis, and prior CP arrest necessitating transfer to [facility]. The patient now presents to the ER from [facility] w/ 1 week history of malaise, decreased ADL performance and progressive lethargy. Upon arrival to the ER he was seen by Dr. Calderon Del Cid and was found to be afebrile at 36.4, not tachyca rdic HR 56 and with stable BP of 133/56 with oxygen saturation of 95%. He was found to be conversant and interactive but mildly lethargic. Because of his indwelling cholecystostomy tube and prior sepsis from UTI and HCAP he was worked up for possible sepis. He was found to be azotemic w/ increased creatinine of 2.8, BUN 72 and mildly hyperkalemic at 6.3. EKG demonstrated sinus bradycardia at 58 bpm w/ diffusely peaked T waves across precordial leads. He was treated w/ kayexalate 15 gm and given iv fluids. His WBC is elevated at 20,000 and his UA is c/w UT (pyuria, trace blood, small leukocyte esterace, few bacteria but negative for nitrites and neg. for ketones and glucose). His CMP was remarkable for low CO2 of 17 but his lactate was normal at 0.8. Blood and urine cultures were obtained and patient was started on Ceftriaxone. His troponin levels were normal at 0.07 and 0.06. Repeat BMP demonstrated a decline in his potassium level to 5.1 but his AG is elevated at 11.5 with CO2 of 15. After discussing the case w/ Dr. Del Cid and reviewing the patient's prior wound, blood and urine cu ltures in February. I requested that the patient be started on Vancomycin and a carbapenem. The patient has remained hemodynamically stable and I agreed to accept the patient to med/surg for treatment of presumptive UTI and dehydration w/ azotemia. I am still concerned that he may become septic as he has in the past but his repeat lactate remained normal. Hopefully he has arrived early enough in his infection that he will respond to antibiotics. DR. Del Cid indicated that he did a thorough examination of his skin and could not find any open wounds. I requested that his biliary drainage be sent for cultures as well given his chronic cholecystitis. He had a CT of his head and abdomen and pelvis. CT of his head was negative for acute transcortical infarct or hemorrhage or mass effect. His CT of his abdomen and pelvis and chest showed nonspecific peribronchial cuffing. Heterogenous appearance to his liver suggestive of chronic hepatocellular disease, GB and bile ducts demonstrated cholecystostomy catheter in place and collapsed gall bladder with pericholecystic stranding. Stoma in RLQ s/p partial colectomy with equivocal diverticuli in left abdomen. Review of Systems Review of Systems limited ROS d/t patient remains lethargic and difficulty in getting him to sustain attention to my questions Constitutional Reports daytime sleepiness, Reports fatigue, Reports fever(s), Denies headache(s) and Reports malaise ENT Denies headache(s) Cardiovascular Denies chest pain, Denies lightheadedness and Denies dyspnea Respiratory Reports cough and Denies dyspnea Gastrointestinal Denies abdominal pain Musculoskeletal Reports tingling Neurologic Reports burning sensations, Denies headache(s) and Reports tingling Endocrine Reports fatigue [facility] Medical History MRSA bacteremia (Resolved) Diabetic foot ulcer (Chronic) Poorly controlled type 2 diabetes mellitus with circulatory disorder (Chronic) CKD (chronic kidney disease) (Chronic) Cardiopulmonary arrest with successful resuscitation (Resolved) Heme positive stool (Chronic) Pedal edema (Chronic) Chronic insomnia (Chronic) Hypertension (Chronic) Chronic pain (Chronic) Hypothyroidism (Chronic) Obesity (Chronic) Back pain (Chronic 06/21/13) Inability to get out of bed (Chronic 06/21/13) Poor self care (Chronic 06/21/13) Chronic bipolar disorder (Chronic) CAD (coronary artery disease) (Chronic) Dyslipidemia (Chronic) Rheumatoid arthritis (Chronic) Osteoarthritis of both knees (Chronic) Cholelithiasis (Chronic) Impaired mobility and ADLs (Chronic) Hemorrhagic cystitis (Inactive) Anemia (Chronic) Chronic anxiety (Chronic) Ulcerative colitis (Chronic) Surgical History History of insertion of T-tube into biliary tract (Chronic) S/P colectomy (Chronic) Arthroplasty of knee (Resolved 03/18/12) Fracture, Open Treatment (Resolved) Social History housing: prison Smoking and Tabacco status: Never Meds Home Medications Medication Instructions Recorded Confirmed Type aspirin [Aspirin Low Dose] 81 mg PO BID 12/23/17 04/10/18 History carbamazepine 100 mg PO TID 12/23/17 04/10/18 History cyanocobalamin (vitamin B-12) 1,000 mcg PO DAILY 12/23/17 04/25/18 History folic acid 1 mg PO DAILY 12/23/17 04/25/18 History loperamide 2 mg PO QID PRN 12/23/17 04/25/18 History omeprazole 20 mg PO DAILY 12/23/17 04/25/18 History amlodipine 10 mg PO DAILY #0 tab 12/31/17 04/10/18 Rx clonidine HCl [Catapres] 0.3 mg PO TID #0 tab 12/31/17 04/10/18 Rx ferrous sulfate 325 mg PO BID #0 tab 12/31/17 04/25/18 Rx acetaminophen [Tylenol] 325 - 650 mg PO Q4H PRN PRN #0 tab 02/10/18 04/25/18 Rx hydralazine 10 mg PO TID #0 tab 02/10/18 04/25/18 Rx hydroxyzine HCl 25 mg PO Q6H PRN PRN #0 tab 02/10/18 04/10/18 Rx magnesium chloride [Mag 64] 64 mg PO BID #0 tab 02/10/18 04/25/18 Rx terazosin 4 mg PO BID #0 cap 02/10/18 04/25/18 Rx Centrum Complete 1 tab PO DAILY 03/01/18 04/25/18 History Lantus Solostar U-100 Insulin 60 unit SUBCUT DAILY 03/01/18 04/25/18 History Novolog Flexpen U-100 Insulin 0 units SUBCUT 0730,1130,1630 03/01/18 04/25/18 History ascorbic acid (vitamin C) [Vitamin 1 tab PO BID 03/01/18 04/10/18 History C] ergocalciferol (vitamin D2) See Rx Instructions .ROUTE .COMPLEX 03/01/18 04/10/18 History [Vitamin D2] levothyroxine 0.5 tab PO DAILY 03/01/18 04/25/18 History metoprolol succinate 25 mg PO DAILY 03/03/18 04/25/18 History venlafaxine 75 mg PO DAILY 03/03/18 04/25/18 History acidophilus-pectin, citrus 1 cap PO TID #0 tab 03/24/18 04/25/18 Rx furosemide 20 mg PO BID@0830,1600 #0 tab 03/24/18 04/25/18 Rx prednisone 50 mg PO DAILY 04/25/18 04/25/18 History Allergies Allergy/AdvReac Type Severity Reaction Status Date / Time No Known Allergies Allergy Unverified 04/10/18 02:14 Exam Const General: no acute distress, disheveled, ill appearing chronically and lethargic Nutritional Appearance: obese Orientation: awake, oriented to person and oriented to place Limitations: altered mental status [facility] Head: normocephalic and atraumatic Ears: EAC abnormal excessive cerumen bilaterally General nose exam: external nose normal and mucous membranes and turbinates abnormal erythematous Face and sinus: normal facial exam Mouth: malodorous breath, oral mucosa abnormal other (dry) and tongue abnormal other (dry) Teeth and gingiva: poor dentition (missing most of his teeth, remaining teeth in poor repair) Throat: posterior oropharynx normal Eyes General: appearance normal, both eyes and all related structures Visual Barnard: normal visual barnard by confrontation Alignment and Position: alignment normal Periorbital: periorbital findings normal Eyelids: eyelids normal Conjunctivae: conjunctivae normal Sclera: sclerae normal Cornea: corneas normal Pupils: PERRL EOM: EOM intact bilaterally Direct ophthalmoscopy: normal light reflex Neck Neck: normal visual inspection, full ROM, no lymphadenopathy, no meningeal s igns, trachea midline and no JVD Carotids: normal carotid upstroke Lymphatic: no lymphadenopathy noted Chest Chest: abnormal inspection of the chest erythema (diffuse folliculitis) Resp Effort & Inspection: normal respiratory effort and able to speak in complete sentences Auscultation: clear to auscultation bilaterally Cardio Jugular venous pressure: no JVD Palpation: normal PMI Rate: regular rate Rhythm: regular rhythm Heart Sounds: S1 normal, S2 normal and murmur systolic early, III/ and at the apex Bruits: no abdominal aortic bruits and no carotid bruits Pulses: normal peripheral pulses GI Inspection: obesity and other (cholecystostomy tube in RUQ draining clear bilious fluid, skin ok) Palpation: soft, no hepatosplenomegaly, no guarding and nontender Percussion: normal to percussion Auscultation: normal bowel sounds Rectal Exam: other (colostomy draining light brown liquid stool, colostomy bag leaking) Skin General skin exam: dry skin Lesions: lesion noted ulcer right plantar great toe borders well-defined, color flesh-colored, consistency firm, morphology annular and raised and surface crusted and dry; nontender Rashes: rashes noted (chronic stasis dermatitis changes over both lower legs) bilateral mid lower leg color brawny brown Hair: other (dandruff and eczema over scalp) Nails: dystrophic (thickened and yellow toenails) and yellow and thickened Extrem Right lower extremity: foot Details: abnormal to inspection Details: a deformity Location: of the great toe and of the hallux valgus Left lower extremity: foot Details: abnormal to inspection Details: a deformity Location: of the great toe and of the hallux valgus Psych Appearance: disheveled Mental Status: other (lethargic but arouseable and oriented to person and place) Speech and Movement: speech and movement normal Mood: other (lethargic but arouseable and oriented to person and place) Affect: normal affect Attitude: cooperative Thought Process: normal Thought Content: normal Insight: fair Judgment: fair Results Imaging Abdomen CT scan report/results: report reviewed (IMPRESSION: 1. Nonspecific peribronchial cuffing. 2. Heterogeneous appearance of the liver is noted. This may reflect hepatocellular disease. Discrete lesion is difficult to exclude although artifact contributes to the appearance created by the presence of the arms at the sides. Evaluation of h) CT scan - chest: report reviewed Additional studies: CT head w/out contrast: IMPRESSION: No evidence for acute transcortical infarct, acute intracranial hemorrhage, or mass effect. Dictated and Authenticated by: David Savage MD. IMPRESSION: No evidence for acute transcortical infarct, acute intracranial hemorrhage, or mass effect. Dictated and Authenticated by: David Savage MD. Labs : 04/25/18 20:43 04/25/18 23:10 Laboratory Results - last 24 hr 04/25/18 04/25/18 04/25/18 20:43 20:43 20:43 WBC RBC Hgb Hct MCV MCH MCHC RDW Plt Count MPV Immature Gran % Neutrophils % Lymphocytes % Monocytes % Eosinophils % Basophils % Absolute Neutrophils Absolute Lymphocytes Absolute Monocytes Absolute Eosinophils Absolute Basophils RBC Morphology Anisocytosis Sodium 135 L Potassium 6.3 H* Chloride 108 H Carbon Dioxide 17.3 L Anion Gap 9.7 BUN 72 H Creatinine 2.84 H Estimated GFR/1.73 m2 22.93 Glucose 278 H Lactate 0.8 Calcium 8.3 L Magnesium 2.2 Total Bilirubin 0.2 AST 8 L ALT 16 Alkaline Phosphatase 160 H Ammonia 24 Troponin I 0.07 H C-Reactive Protein 6.08 H Total Protein 6.5 Albumin 2.6 L Urine Color Urine Clarity Urine pH Ur Specific [place] Urine Protein Urine Ketones Urine Blood Urine Nitrite Urine Bilirubin Urine Urobilinogen Ur Leukocyte Esterase Urine RBC Urine WBC Ur Epithelial Cells Urine Crystals Urine Bacteria Urine Casts Urine Mucus Urine Other Ur Culture Indicated? Urine Glucose Acetaminophen Ethyl Alcohol < 3.0 04/25/18 04/25/18 04/25/18 20:43 20:43 20:59 WBC 20.01 H RBC 4.53 Hgb 11.0 L Hct 36.1 L MCV 79.7 L MCH 24.3 L MCHC 30.5 L RDW 19.5 H Plt Count 259 MPV 10.6 Immature Gran % 1.8 Neutrophils % 93.9 Lymphocytes % 1.6 Monocytes % 2.6 Eosinophils % 0.0 Basophils % 0.1 Absolute Neutrophils 18.79 H Absolute Lymphocytes 0.32 L Absolute Monocytes 0.52 Absolute Eosinophils 0.00 Absolute Basophils 0.02 RBC Morphology See below Anisocytosis 1+ Sodium Potassium Chloride Carbon Dioxide Anion Gap BUN Creatinine Estimated GFR/1.73 m2 Glucose Lactate Calcium Magnesium Total Bilirubin AST ALT Alkaline Phosphatase Ammonia Troponin I C-Reactive Protein Total Protein Albumin Urine Color Yellow Urine Clarity Sl cloudy Urine pH 6.0 Ur Specific [place] 1.015 Urine Protein 100 H Urine Ketones Negative Urine Blood Trace-lysed H Urine Nitrite Negative Urine Bilirubin Negative Urine Urobilinogen 0.2 Ur Leukocyte Esterase Moderate H Urine RBC 0-2 Urine WBC 20-50 Ur Epithelial Cells Rare Urine Crystals Negative Urine Bacteria Moderate Urine Casts Negative Urine Mucus Negative Urine Other Few renal Ur Culture Indicated? Yes Urine Glucose Negative Acetaminophen 5 L Ethyl Alcohol 04/25/18 04/25/18 04/26/18 23:10 23:10 00:47 WBC RBC Hgb Hct MCV MCH MCHC RDW Plt Count MPV Immature Gran % Neutrophils % Lymphocytes % Monocytes % Eosinophils % Basophils % Absolute Neutrophils Absolute Lymphocytes Absolute Monocytes Absolute Eosinophils Absolute Basophils RBC Morphology Anisocytosis Sodium 140 Potassium 5.1 Chloride 113 H Carbon Dioxide 15.5 L Anion Gap 11.5 H BUN 66 H Creatinine 2.50 H Estimated GFR/1.73 m2 26.57 Glucose 286 H Lactate 0.7 Calcium 7.1 L Magnesium Total Bilirubin AST ALT Alkaline Phosphatase Ammonia Troponin I 0.06 C-Reactive Protein Total Protein Albumin Urine Color Urine Clarity Urine pH Ur Specific [place] Urine Protein Urine Ketones Urine Blood Urine Nitrite Urine Bilirubin Urine Urobilinogen Ur Leukocyte Esterase Urine RBC Urine WBC Ur Epithelial Cells Urine Crystals Urine Bacteria Urine Casts Urine Mucus Urine Other Ur Culture Indicated? Urine Glucose Acetaminophen Ethyl Alcohol 04/26/18 01:15 WBC RBC Hgb Hct MCV MCH MCHC RDW Plt Count MPV Immature Gran % Neutrophils % Lymphocytes % Monocytes % Eosinophils % Basophils % Absolute Neutrophils Absolute Lymphocytes Absolute Monocytes Absolute Eosinophils Absolute Basophils RBC Morphology Anisocytosis Sodium Potassium Chloride Carbon Dioxide Anion Gap BUN Creatinine Estimated GFR/1.73 m2 Glucose Lactate Calcium Magnesium Total Bilirubin AST ALT Alkaline Phosphatase Ammonia Troponin I C-Reactive Protein Total Protein Albumin Urine Color Yellow Urine Clarity Sl cloudy Urine pH 5.5 Ur Specific [place] 1.015 Urine Protein 100 H Urine Ketones Negative Urine Blood Trace-lysed H Urine Nitrite Negative Urine Bilirubin Negative Urine Urobilinogen 0.2 Ur Leukocyte Esterase Small H Urine RBC 0-2 Urine WBC >50 Ur Epithelial Cells Negative Urine Crystals Negative Urine Bacteria Few Urine Casts 0-2 coarse granular Urine Mucus Negative Urine Other Few yeast Ur Culture Indicated? Yes Urine Glucose Negative Acetaminophen Ethyl Alcohol Last Vital Signs Temp 37.5 C 04/26/18 01:04 Pulse 73 04/26/18 01:04 Resp 16 04/26/18 01:04 BP 164/69 H 04/26/18 01:04 Pulse Ox 94 L 04/26/18 01:04
[2018-04-26] MEDS: Hydrocortisone SOD SUC. 100 MG VIAL 50 MG IVP ×2 (05:17→18:05)
[2018-04-26] MEDS: Levothyroxine 75 MCG TAB 37.5 MCG PO (05:17)
[2018-04-26] MEDS: MEROPENEM 1 GM in Normal Saline 100 ML IVPB ×2 (05:18→16:50)
[2018-04-26] MEDS: Normal Saline Flush 10 ML SYR IVP ×2 (05:18→11:13)
[2018-04-26] MEDS: Normal Saline 1,000 ML 125 ML IV (07:31)
[2018-04-26 07:44] LABS: Lactate-non-spesis 0.5 mmol/l (0.6-1.4)
[2018-04-26 07:49] LABS: Abs Immature Grans 0.43 k/cumm (0.0-0.09); HCT 34.4 % (40.0-50.0); HGB 10.5 g/dL (13.5-17.5); Mean Corp. HGB Concentration 30.5 g/dL (32.0-36.0); Mean Corpuscular Hemoglobin 24.3 pg (27.0-33.0); Mean Corpuscular Volume 79.6 fL (80-95); Mean Platelet Volume 9.9 fL (8.0-11.0); Platelet Count 244 x1000/uL (130-400); RBC 4.32 m/cumm (4.50-6.00); RBC Distribution Width 19.4 % (11.8-14.1); White Blood Cell Count 18.42 k/cumm (4.4-10.8)
[2018-04-26 07:59] LABS: Prothrombin Time 9.6 sec (9.3-11.0)
[2018-04-26 08:15] LABS: ALT 15 U/L (12-78); AST 9 U/L (15-37); Albumin 2.5 g/dL (3.4-5.0); Alkaline Phosphatase 145 U/L (46-116); Anion Gap 12.1 mmol/L (3-11); BUN 63 mg/dL (7-18); Bilirubin, Total 0.2 mg/dL (0.2-1.0); CO2 15.9 mmol/L (21.0-32.0); CREATININE 2.46 mg/dL (0.70-1.30); Chloride 109 mmol/L (98-107); Estimated GFR 27.07 (mL/min/1.73m2); Glucose 246 mg/dL (70-100); Magnesium 2.1 mg/dL (1.8-2.4); Potassium 4.4 mmol/L (3.5-5.1); Sodium 137 mmol/L (136-145); TSH (W/Ref FT4) 0.37 uIU/mL (0.358-3.74); Total Protein 6.1 g/dL (6.4-8.2); Troponin I 0.06 ng/mL (0.00-0.06)
[2018-04-26 08:34] LABS: Absolute Lymphocyte Count 0.18 k/cumm (1.2-3.4); Absolute Monocyte Count 0.74 k/cumm (0.11-0.7); Absolute Neutrophil Count 17.31 k/cumm (1.2-6.7); Acanthocytes 1+; Burr Cells (echinocyte) 2+; Diff Comment Manual Differential; Nucleated RBC 1 /100WBC
[2018-04-26 08:35] LABS: Hypochromasia 2+; Ovalocytes 2+
[2018-04-26] MEDS: Insulin Aspart 300 UNITS/3 ML PEN SC ×7 (08:55→21:01)
[2018-04-26] MEDS: Insulin Glargine 300 UNITS/3 ML PEN 60 UNITS SC (08:56)
[2018-04-26] MEDS: Enoxaparin 30 MG/0.3 ML SYR SC (08:57)
[2018-04-26] MEDS: hydrALAZINE 10 MG TAB PO ×3 (08:59→20:57)
[2018-04-26] MEDS: Omeprazole 20 MG CAPCR PO (08:59)
[2018-04-26] MEDS: amLODIPine 5 MG TAB 10 MG PO (08:59)
[2018-04-26] MEDS: Lactobacillus Acidophilus CAP 1 CAP PO ×3 (08:59→20:57)
[2018-04-26] MEDS: cloNIDine 0.1 MG TAB 0.3 MG PO ×3 (08:59→20:58)
[2018-04-26] MEDS: Terazosin 2 MG CAP 4 MG PO ×2 (08:59→20:57)
[2018-04-26] MEDS: Ascorbic Acid 500 MG TAB PO ×2 (08:59→20:57)
[2018-04-26] MEDS: Magnesium Chloride 64 MG TABCR PO ×2 (08:59→20:58)
[2018-04-26] MEDS: Ferrous Sulfate 325 MG TAB PO ×2 (08:59→20:57)
[2018-04-26] MEDS: Metoprolol CR 25 MG TABCR PO (08:59)
[2018-04-26] MEDS: carBAMazepine 100 MG CHEW PO ×3 (08:59→20:57)
[2018-04-26] MEDS: Folic Acid 1 MG TAB PO (09:00)
[2018-04-26] MEDS: Aspirin E.C. 81 MG TABEC PO ×2 (09:00→20:57)
[2018-04-26] MEDS: Venlafaxine 37.5 MG CAPCR 75 MG PO (09:00)
[2018-04-26] MEDS: Multivitamin TAB 1 TAB PO (09:00)
[2018-04-26] MEDS: Cyanocobalamin 500 MCG TAB 1000 MCG PO (09:00)
[2018-04-26] MEDS: Ketoconazole 2% CREAM 15 GM TUBE TP (09:10)
[2018-04-26 10:44] LABS: HCO3 14 mmol/L (22-28); pCO2 44 mmHg (34-47); pO2 73 mmHg (83-108); sO2 95 % (94-98); tCO2 14 mmol/L (22-29)
[2018-04-26 10:46] LABS: FIO2 R/A %; Site Left Radial; pH 7.11 (7.35-7.45)
[2018-04-26] MEDS: Furosemide 20 MG/2 ML VIAL IVP ×2 (11:14→16:49)
[2018-04-26] MEDS: Hydrocortisone SOD SUC. 100 MG VIAL IVP (11:14)
[2018-04-26] MEDS: SODIUM BICARBONATE 150 MEQ in DEXTROSE 5%-WATER 850 ML 100 MEQ IV ×2 (12:19→22:30)
[2018-04-26] MEDS: Sodium Bicarbonate 50 MEQ/50 ML SYR 150 MEQ IVP (12:27)
--- NOTE | 2018-04-26 12:27 | PGE_ITS ---
Date of Service Date of service: 04/26/18 Time of Service: 11:00 Assessment and Plan (1) Metabolic acidosis: Current visit: No Status: Acute Severe, in setting of acute on chronic adrenal insuffiency. Previously responded to treatment of adrenal insuffiency, its trigger and bicarb therapy. No evidence for DKA and lactate is wnl, presenting exactly like metabolic acidosis on last admission. I have dosed the patient with 100 mg of IV hydrocortisone x1, ordered transfer to the ICU and initiated bicarb boluses and drip. I have also d/c'ed MIVF other than bicarb and initiated lasix in case CHF is contributing to expansion acidosis. Follow serial VBG's. (2) Sepsis: Current visit: Yes Status: Acute Likely due to UTI, present on admission - however, Mr Corley has other possible ports of entry for the infection. Urine C&S is pending, as are blood cultures. Continue empiric vancomycin/meropenem. IVF d/c'ed as patient is clinically fluid overloaded. (3) UTI (urinary tract infection): Current visit: Yes Status: Acute Present on admission, culture pending. As above. Has a ruiz - will attempt to d/c as soon as acidosis is better. (4) Insufficiency, adrenal: Current visit: Yes Status: Acute As above. S/p additional dose of hydrocortisone 100 mg, after which he is to continue on hydrocortisone 50 mg IV Q6hrs. (5) Toxic metabolic encephalopathy: Current visit: No Status: Acute Due to combination of sepsis, adrenal insufficiency and metabolic acidosis. Monitor as above conditions are getting addressed. (6) Pulmonary hypertension: Current visit: No Status: Chronic Carefully monitor volume status. (7) Chronic cholecystitis: Current visit: No Status: Acute Previously thought to be a poor surgical candidate. Will need to follow up with [facility] general [place]. Cholecystostomy drain is patent/draining. Previously re-evaluated by IR at [facility] [place] and felt to be expected to be contaminated as it is open to the GI tract. (8) Hyperkalemia: Current visit: No Status: Resolved In setting of adrenal insufficiency and metabolic acidosis. Monitor. (9) Right elbow pain: Current visit: Yes Status: Acute ?RA flare Obtaining XR of the elbow. Consider ortho consult (10) CKD (chronic kidney disease): Current visit: No Status: Chronic At baseline. Monitor Cr while diuresing, but no further workup at this time. 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 Has previously met with palliative care and maintained same decision. (13) DVT prophylaxis: Current visit: Yes Status: Acute Currently on lovenox. I have reviewed nursing notes that the patient has evidence of blood in his stool - which is not abnormal for him, but we will hold lovenox at this time. Continue TEDs and SCD's Subjective Interval history since last seen: I was informed that the patient's pH on his ABG from this morning was 7.1 and that he was still arousable, but somnolent. Came to examine the patient at bedside. He was asleep, relatively easily arousable for Brendan, remembered me, but does appear lethargic. He complains of pain in his R elbow and R leg. Denies dizziness, chest pain, or shortness of breath. Denies nausea. States that the [facility]. Exam Narrative Exam Narrative: General: Lethargic middle aged male, looks worse than the last time that I saw him, appears edematous, arousable, slow to respond, but provides appropriate answers; erythematous papular trunkal rash (I only see the front as he is unable to show me his back at the time of his encounter) HEENT: EOMI, MMM, face more edematous Heart: RRR Lungs: CTAB/diminished ABdomen: soft, nontender, nondistended; cholecystostomy and ileostomy in place Extremities: 2+ BLE edema; R shoulder appears swollen, extremely TTP, no obvious erythema/drainage/induration Objective Objective Clinical Data: Abnormal lab results 04/25/18 04/25/18 04/25/18 Range/Units 20:43 20:43 20:43 WBC 20.01 H (4.4-10.8) k/cumm RBC (4.50-6.00) m/cumm Hgb 11.0 L (13.5-17.5) g/dL Hct 36.1 L (40.0-50.0) % MCV 79.7 L (80-95) fL MCH 24.3 L (27.0-33.0) pg MCHC 30.5 L (32.0-36.0) g/dL RDW 19.5 H (11.8-14.1) % Absolute Neutrophils 18.79 H (1.2-6.7) k/cumm Absolute Lymphocytes 0.32 L (1.2-3.4) k/cumm Absolute Monocytes (0.11-0.7) k/cumm pO2 (83-108) mmHg ABG pH (7.35-7.45) ABG HCO3 (22-28) mmol/L ABG Total CO2 (22-29) mmol/L Sodium 135 L (136-145) mmol/L Potassium 6.3 H* (3.5-5.1) mmol/L Chloride 108 H (98-107) mmol/L Carbon Dioxide 17.3 L (21.0-32.0) mmol/L Anion Gap (3-11) mmol/L BUN 72 H (7-18) mg/dL Creatinine 2.84 H (0.70-1.30) mg/dL Glucose 278 H (70-100) mg/dL Lactate (0.6-1.4) mmol/l Calcium 8.3 L (8.5-10.1) mg/dL AST 8 L (15-37) U/L Alkaline Phosphatase 160 H (46-116) U/L Troponin I 0.07 H (0.00-0.06) ng/mL C-Reactive Protein 6.08 H (0.0-0.3) mg/dL Total Protein (6.4-8.2) g/dL Albumin 2.6 L (3.4-5.0) g/dL Urine Protein (Negative) mg/dL Urine Blood (Negative) Ur Leukocyte Esterase (Negative) Acetaminophen 5 L (10-30) ug/mL 04/25/18 04/25/18 04/26/18 Range/Units 20:59 23:10 01:15 WBC (4.4-10.8) k/cumm RBC (4.50-6.00) m/cumm Hgb (13.5-17.5) g/dL Hct (40.0-50.0) % MCV (80-95) fL MCH (27.0-33.0) pg MCHC (32.0-36.0) g/dL RDW (11.8-14.1) % Absolute Neutrophils (1.2-6.7) k/cumm Absolute Lymphocytes (1.2-3.4) k/cumm Absolute Monocytes (0.11-0.7) k/cumm pO2 (83-108) mmHg ABG pH (7.35-7.45) ABG HCO3 (22-28) mmol/L ABG Total CO2 (22-29) mmol/L Sodium (136-145) mmol/L Potassium (3.5-5.1) mmol/L Chloride 113 H (98-107) mmol/L Carbon Dioxide 15.5 L (21.0-32.0) mmol/L Anion Gap 11.5 H (3-11) mmol/L BUN 66 H (7-18) mg/dL Creatinine 2.50 H (0.70-1.30) mg/dL Glucose 286 H (70-100) mg/dL Lactate (0.6-1.4) mmol/l Calcium 7.1 L (8.5-10.1) mg/dL AST (15-37) U/L Alkaline Phosphatase (46-116) U/L Troponin I (0.00-0.06) ng/mL C-Reactive Protein (0.0-0.3) mg/dL Total Protein (6.4-8.2) g/dL Albumin (3.4-5.0) g/dL Urine Protein 100 H 100 H (Negative) mg/dL Urine Blood Trace-lysed H Trace-lysed H (Negative) Ur Leukocyte Esterase Moderate H Small H (Negative) Acetaminophen (10-30) ug/mL 04/26/18 04/26/18 04/26/18 Range/Units 07:30 07:30 07:30 WBC 18.42 H (4.4-10.8) k/cumm RBC 4.32 L (4.50-6.00) m/cumm Hgb 10.5 L (13.5-17.5) g/dL Hct 34.4 L (40.0-50.0) % MCV 79.6 L (80-95) fL MCH 24.3 L (27.0-33.0) pg MCHC 30.5 L (32.0-36.0) g/dL RDW 19.4 H (11.8-14.1) % Absolute Neutrophils 17.31 H (1.2-6.7) k/cumm Absolute Lymphocytes 0.18 L (1.2-3.4) k/cumm Absolute Monocytes 0.74 H (0.11-0.7) k/cumm pO2 (83-108) mmHg ABG pH (7.35-7.45) ABG HCO3 (22-28) mmol/L ABG Total CO2 (22-29) mmol/L Sodium (136-145) mmol/L Potassium (3.5-5.1) mmol/L Chloride 109 H (98-107) mmol/L Carbon Dioxide 15.9 L (21.0-32.0) mmol/L Anion Gap 12.1 H (3-11) mmol/L BUN 63 H (7-18) mg/dL Creatinine 2.46 H (0.70-1.30) mg/dL Glucose 246 H (70-100) mg/dL Lactate 0.5 L (0.6-1.4) mmol/l Calcium 8.0 L (8.5-10.1) mg/dL AST 9 L (15-37) U/L Alkaline Phosphatase 145 H (46-116) U/L Troponin I (0.00-0.06) ng/mL C-Reactive Protein (0.0-0.3) mg/dL Total Protein 6.1 L (6.4-8.2) g/dL Albumin 2.5 L (3.4-5.0) g/dL Urine Protein (Negative) mg/dL Urine Blood (Negative) Ur Leukocyte Esterase (Negative) Acetaminophen (10-30) ug/mL 04/26/18 Range/Units 10:16 WBC (4.4-10.8) k/cumm RBC (4.50-6.00) m/cumm Hgb (13.5-17.5) g/dL Hct (40.0-50.0) % MCV (80-95) fL MCH (27.0-33.0) pg MCHC (32.0-36.0) g/dL RDW (11.8-14.1) % Absolute Neutrophils (1.2-6.7) k/cumm Absolute Lymphocytes (1.2-3.4) k/cumm Absolute Monocytes (0.11-0.7) k/cumm pO2 73 L (83-108) mmHg ABG pH 7.11 L* (7.35-7.45) ABG HCO3 14 L (22-28) mmol/L ABG Total CO2 14 L (22-29) mmol/L Sodium (136-145) mmol/L Potassium (3.5-5.1) mmol/L Chloride (98-107) mmol/L Carbon Dioxide (21.0-32.0) mmol/L Anion Gap (3-11) mmol/L BUN (7-18) mg/dL Creatinine (0.70-1.30) mg/dL Glucose (70-100) mg/dL Lactate (0.6-1.4) mmol/l Calcium (8.5-10.1) mg/dL AST (15-37) U/L Alkaline Phosphatase (46-116) U/L Troponin I (0.00-0.06) ng/mL C-Reactive Protein (0.0-0.3) mg/dL Total Protein (6.4-8.2) g/dL Albumin (3.4-5.0) g/dL Urine Protein (Negative) mg/dL Urine Blood (Negative) Ur Leukocyte Esterase (Negative) Acetaminophen (10-30) ug/mL Vital Signs Temperature 37.2 C 04/26/18 11:20 Temperature Source Tympanic 04/26/18 11:20 Pulse 69 04/26/18 11:20 Pulse Rhythm Regular 04/26/18 09:20 Pulse 78 04/26/18 02:30 Respiratory Rate 24 04/26/18 11:20 Respiratory Effort Non-Labored 04/26/18 09:20 Respiratory Depth Normal 04/26/18 09:20 Respiratory Pattern Normal 04/26/18 09:20 Blood Pressure 138/69 04/26/18 11:20 Blood Pressure Mean 81 04/26/18 01:01 Blood Pressure Position Supine 04/25/18 20:30 Pulse Oximetry 94 L 04/26/18 11:20 Oxygen Delivery Method Room Air 04/26/18 11:20 Oxygen Flow Rate 0 04/26/18 11:20 Pain Level 2 04/26/18 11:20 Intake & Output 04/25/18 04/26/18 04/26/18 23:59 11:59 23:59 Intake Total 50 / 50 1830 / 1830 Output Total 1775 / 1775 Balance 50 / 50 55 / 55 Weight 119 kg 110.4 kg Intake: IV 50 / 50 1350 / 1350 Oral 480 / 480 Output: Drainage 325 / 325 right abdomen 325 / 325 Urine 1250 / 1250 Stool 200 / 200 Other: Urine Color Yellow Urine Appearance Clear Comment 1 small blood clot Stool Size Moderate Stool Characteristics Soft Brown Laboratory Results WBC 18.42 k/cumm (4.4-10.8) H 04/26/18 07:30 RBC 4.32 m/cumm (4.50-6.00) L 04/26/18 07:30 Hgb 10.5 g/dL (13.5-17.5) L 04/26/18 07:30 Hct 34.4 % (40.0-50.0) L 04/26/18 07:30 MCV 79.6 fL (80-95) L 04/26/18 07:30 MCH 24.3 pg (27.0-33.0) L 04/26/18 07:30 MCHC 30.5 g/dL (32.0-36.0) L 04/26/18 07:30 RDW 19.4 % (11.8-14.1) H 04/26/18 07:30 Plt Count 244 x1000/uL (130-400) 04/26/18 07:30 MPV 9.9 fL (8.0-11.0) 04/26/18 07:30 Immature Gran % See Differential 04/26/18 07:30 Neutrophils % 91.0 04/26/18 07:30 Band Neutrophils % 3.0 % 04/26/18 07:30 Lymphocytes % 1.0 04/26/18 07:30 Monocytes % 4.0 04/26/18 07:30 Eosinophils % 0.0 04/26/18 07:30 Basophils % 0.0 04/26/18 07:30 Myelocytes % 1.0 % 04/26/18 07:30 Absolute Neutrophils 17.31 k/cumm (1.2-6.7) H 04/26/18 07:30 Absolute Lymphocytes 0.18 k/cumm (1.2-3.4) L 04/26/18 07:30 Absolute Monocytes 0.74 k/cumm (0.11-0.7) H 04/26/18 07:30 Absolute Eosinophils 0.00 k/cumm (0.0-0.7) 04/26/18 07:30 Absolute Basophils 0.00 k/cumm (0.0-0.2) 04/26/18 07:30 Nucleated RBCs 1 /100WBC 04/26/18 07:30 Differential Comment Manual differential 04/26/18 07:30 RBC Morphology See below 04/26/18 07:30 Hypochromasia 2+ 04/26/18 07:30 Anisocytosis 1+ 04/25/18 20:43 Ovalocytes 2+ 04/26/18 07:30 Sathya Cells 2+ 04/26/18 07:30 Acanthocytes (Spur) 1+ 04/26/18 07:30 PT 9.6 sec (9.3-11.0) 04/26/18 07:30 INR 1.0 (0.9-1.1) 04/26/18 07:30 Sample Site Left radial 04/26/18 10:16 pCO2 44 mmHg (34-47) 04/26/18 10:16 pO2 73 mmHg (83-108) L 04/26/18 10:16 O2 Saturation 95 % (94-98) 04/26/18 10:16 ABG pH 7.11 (7.35-7.45) L* 04/26/18 10:16 ABG HCO3 14 mmol/L (22-28) L 04/26/18 10:16 ABG Total CO2 14 mmol/L (22-29) L 04/26/18 10:16 FiO2 R/a % 04/26/18 10:16 Sodium 137 mmol/L (136-145) 04/26/18 07:30 Potassium 4.4 mmol/L (3.5-5.1) 04/26/18 07:30 Chloride 109 mmol/L (98-107) H 04/26/18 07:30 Carbon Dioxide 15.9 mmol/L (21.0-32.0) L 04/26/18 07:30 Anion Gap 12.1 mmol/L (3-11) H 04/26/18 07:30 BUN 63 mg/dL (7-18) H 04/26/18 07:30 Creatinine 2.46 mg/dL (0.70-1.30) H 04/26/18 07:30 Estimated GFR/1.73 m2 27.07 (mL/min/1.73m2) 04/26/18 07:30 Glucose 246 mg/dL (70-100) H 04/26/18 07:30 Lactate 0.5 mmol/l (0.6-1.4) L 04/26/18 07:30 Calcium 8.0 mg/dL (8.5-10.1) L 04/26/18 07:30 Magnesium 2.1 mg/dL (1.8-2.4) 04/26/18 07:30 Total Bilirubin 0.2 mg/dL (0.2-1.0) 04/26/18 07:30 AST 9 U/L (15-37) L 04/26/18 07:30 ALT 15 U/L (12-78) 04/26/18 07:30 Alkaline Phosphatase 145 U/L (46-116) H 04/26/18 07:30 Ammonia 24 umol/L (11-32) 04/25/18 20:43 Troponin I 0.06 ng/mL (0.00-0.06) 04/26/18 07:30 C-Reactive Protein 6.08 mg/dL (0.0-0.3) H 04/25/18 20:43 Total Protein 6.1 g/dL (6.4-8.2) L 04/26/18 07:30 Albumin 2.5 g/dL (3.4-5.0) L 04/26/18 07:30 TSH 0.37 uIU/mL (0.358-3.74) 04/26/18 07:30 Urine Color Yellow (Yellow) 04/26/18 01:15 Urine Clarity Sl cloudy 04/26/18 01:15 Urine pH 5.5 (5-8) 04/26/18 01:15 Ur Specific [place] 1.015 (1.005-1.025) 04/26/18 01:15 Urine Protein 100 mg/dL (Negative) H 04/26/18 01:15 Urine Ketones Negative mg/dL (Negative) 04/26/18 01:15 Urine Blood Trace-lysed (Negative) H 04/26/18 01:15 Urine Nitrite Negative (Negative) 04/26/18 01:15 Urine Bilirubin Negative (Negative) 04/26/18 01:15 Urine Urobilinogen 0.2 EU/dL (Up TO 0.2) 04/26/18 01:15 Ur Leukocyte Esterase Small (Negative) H 04/26/18 01:15 Urine RBC 0-2 (0-2) 04/26/18 01:15 Urine WBC >50 HPF (0-5) 04/26/18 01:15 Ur Epithelial Cells Negative HPF (Negative) 04/26/18 01:15 Urine Crystals Negative HPF (Negative) 04/26/18 01:15 Urine Bacteria Few HPF (Negative) 04/26/18 01:15 Urine Casts 0-2 coarse granular LPF (Negative) 04/26/18 01:15 Urine Mucus Negative (Negative) 04/26/18 01:15 Urine Other Few yeast (Negative) 04/26/18 01:15 Ur Culture Indicated? Yes 04/26/18 01:15 Urine Glucose Negative mg/dL (Negative) 04/26/18 01:15 Acetaminophen 5 ug/mL (10-30) L 04/25/18 20:43 Ethyl Alcohol < 3.0 mg/dL (<3) 04/25/18 20:43 C.difficile Tox Ab Neut Cancelled 04/26/18 10:13
[2018-04-26 12:36] LABS: Bilirubin Negative (Negative); Blood Moderate (Negative); Clarity Clear; Glucose Negative (Negative); Ketones Negative (Negative); Leukocyte Esterase Small (Negative); Nitrite Negative (Negative); Specific Gravity 1.015 (1.005-1.025); Urobilinogen 0.2 EU/dL (Up TO 0.2)
[2018-04-26 12:48] LABS: WBC >50 HPF (0-5)
[2018-04-26 12:49] LABS: C & S Indicated? Yes; Other Cells Few Yeast (Negative)
--- NOTE | 2018-04-26 13:15 | PDOC.CMIN ---
- If Service Date Differs Date of service: 04/26/18 Time of Service: 13:15 Care Management Initial Assess REASON FOR HOSPITALIZATION:: UTI PAST MEDICAL HISTORY/PAST SURGICAL HISTORY:: MRSA bacteremia (Resolved). Diabetic foot ulcer (Chronic). Poorly controlled type 2 diabetes mellitus with circulatory disorder (Chronic). CKD (chronic kidney disease) (Chronic). Cardiopulmonary arrest with successful resuscitation (Resolved). Heme positive stool (Chronic). Pedal edema (Chronic). Chronic insomnia (Chronic). Hypertension (Chronic). Chronic pain (Chronic). Hypothyroidism (Chronic). Obesity (Chronic). Back pain (Chronic 06/21/13). Inability to get out of bed (Chronic 06/21/13). Poor self care (Chronic 06/21/13). Chronic bipolar disorder (Chronic). CAD (coronary artery disease) (Chronic). Dyslipidemia (Chronic). Rheumatoid arthritis (Chronic). Osteoarthritis of both knees (Chronic). Cholelithiasis (Chronic). Impaired mobility and ADLs (Chronic). Hemorrhagic cystitis (Inactive). Anemia (Chronic). Chronic anxiety (Chronic). Ulcerative colitis (Chronic). History of insertion of T-tube into biliary tract (Chronic). S/P colectomy (Chronic). Arthroplasty of knee (Resolved 03/18/12). Fracture, Open Treatment (Resolved) PREVIOUS FUNCTIONAL STATUS/SOCIAL/FAMILY SUPPORTS:: Brendan is a resident at [facility] in [place]. He has a sister Lian Hardy whom resides in [place] ([phone]), whom is his only identified family support. Brendan enjoys watching TV and reading at [facility]. CURRENT FUNCTIONAL STATUS:: Brendan is sitting up in bed this morning. CM meets with him while he is on the Med/Surg unit, this afternoon Brendan was transferred to the ICU. ADVANCE DIRECTIVES:: COLST Has patient been provided with information about the portal?: Yes Did the patient sign up for the portal?: No CODE STATUS:: Full Code INSURANCE COVERAGE / FINANCIAL ISSUES:: Medicare, Medicaid CURRENT HOME/COMMUNITY SERVICES/EQUIPMENT:: Currently Brendan receives all of his services and equipment through [facility]. PRIMARY CARE PHYSICIAN:: Dr. Horowitz POTENTIAL DISCHARGE NEEDS:: Return to previous level of care - [facility] PATIENT/FAMILY EDUCATION NEEDS:: Review DC instructions, any limitations, and ongoing DC planning discussion. discuss 'Ask Me Three' ANTICIPATED BARRIERS TO DISCHARGE:: None identified at this time. TRANSPORTATION:: Via w/c van PLAN:: Brendan will return to [facility] once medically cleared. He will transport via w/c van when ready.
--- NOTE | 2018-04-26 13:19 | INITIAL_ITS ---
- If Service Date Differs Date of service: 04/26/18 Time of Service: 13:15 Care Management Initial Assess REASON FOR HOSPITALIZATION:: UTI PAST MEDICAL HISTORY/PAST SURGICAL HISTORY:: MRSA bacteremia (Resolved). Diabetic foot ulcer (Chronic). Poorly controlled type 2 diabetes mellitus with circulatory disorder (Chronic). CKD (chronic kidney disease) (Chronic). Cardiopulmonary arrest with successful resuscitation (Resolved). Heme positive stool (Chronic). Pedal edema (Chronic). Chronic insomnia (Chronic). Hypertension (Chronic). Chronic pain (Chronic). Hypothyroidism (Chronic). Obesity (Chronic). Back pain (Chronic 06/21/13). Inability to get out of bed (Chronic 06/21/13). Poor self care (Chronic 06/21/13). Chronic bipolar disorder (Chronic). CAD (coronary artery disease) (Chronic). Dyslipidemia (Chronic). Rheumatoid arthritis (Chronic). Osteoarthritis of both knees (Chronic). Cholelithiasis (Chronic). Impaired mobility and ADLs (Chronic). Hemorrhagic cystitis (Inactive). Anemia (Chronic). Chronic anxiety (Chronic). Ulcerative colitis (Chronic). History of insertion of T-tube into biliary tract (Chronic). S/P colectomy (Chronic). Arthroplasty of knee (Resolved 03/18/12). Fracture, Open Treatment (Resolved) PREVIOUS FUNCTIONAL STATUS/SOCIAL/FAMILY SUPPORTS:: Brendan is a resident at [facility] in [place]. He has a sister Lian Hardy whom resides in [place] ([phone]), whom is his only identified family support. Brendan enjoys watching TV and reading at [facility]. CURRENT FUNCTIONAL STATUS:: Brendan is sitting up in bed this morning. CM meets with him while he is on the Med/Surg unit, this afternoon Brendan was transferred to the ICU. ADVANCE DIRECTIVES:: COLST Has patient been provided with information about the portal?: Yes Did the patient sign up for the portal?: No CODE STATUS:: Full Code INSURANCE COVERAGE / FINANCIAL ISSUES:: Medicare, Medicaid CURRENT HOME/COMMUNITY SERVICES/EQUIPMENT:: Currently Brendan receives all of his services and equipment through [facility]. PRIMARY CARE PHYSICIAN:: Dr. Horowitz POTENTIAL DISCHARGE NEEDS:: Return to previous level of care - [facility] PATIENT/FAMILY EDUCATION NEEDS:: Review DC instructions, any limitations, and ongoing DC planning discussion. discuss 'Ask Me Three' ANTICIPATED BARRIERS TO DISCHARGE:: None identified at this time. TRANSPORTATION:: Via w/c van PLAN:: Brendan will return to [facility] once medically cleared. He will transport via w/c van when ready.
--- NOTE | 2018-04-26 13:20 | DI.RAD_ITS ---
SYMPTOM/DIAGNOSIS: RT ELBOW PAIN RIGHT ELBOW: Comparison is made with 07/08/17. Hardware is again noted in the distal humerus and proximal ulna. There is no change in alignment. There has been healing of the previously noted fracture. There is now increased callous formation surrounding the proximal humeral fracture as well as a joint effusion. Superimposed infection could not be excluded.
[2018-04-26 17:17] LABS: HCO3 (Venous) 19 mmol/L (22-28); O2 Sat (Venous) 98 % (70-80); TCO2 (Venous) 18 mmol/L (22-29); pCO2 (Venous) 46 mm/Hg (34-47); pH (Venous) 7.21 (7.32-7.43); pO2 (Venous) 94 mm/Hg (28-44)
[2018-04-26 17:25] LABS: BE (Venous) -9.2 mmol/L (-3-3)
[2018-04-26 22:34] LABS: Anion Gap 10.2 mmol/L (3-11); BUN 58 mg/dL (7-18); CO2 23.8 mmol/L (21.0-32.0); CREATININE 2.42 mg/dL (0.70-1.30); Calcium 7.7 mg/dL (8.5-10.1); Chloride 109 mmol/L (98-107); Estimated GFR 27.58 (mL/min/1.73m2); Glucose 255 mg/dL (70-100); Potassium 3.2 mmol/L (3.5-5.1); Sodium 143 mmol/L (136-145)
[2018-04-27] VITALS (86 sets, daily range): BP systolic 148–210; BP diastolic 63–101; PULSE 52–89; RESP 11–31; TEMP 36–37.2; O2SAT 93–99
[2018-04-27] MEDS: Normal Saline Flush 10 ML SYR IVP ×4 (00:50→12:42)
[2018-04-27] MEDS: Hydrocortisone SOD SUC. 100 MG VIAL 50 MG IVP ×4 (00:50→17:24)
[2018-04-27] MEDS: MEROPENEM 1 GM in Normal Saline 100 ML IVPB ×2 (04:23→16:05)
[2018-04-27] MEDS: Levothyroxine 75 MCG TAB 37.5 MCG PO (05:58)
[2018-04-27 07:34] LABS: Abs Immature Grans 0.33 k/cumm (0.0-0.09); HCT 31.6 % (40.0-50.0); HGB 9.8 g/dL (13.5-17.5); Mean Corpuscular Hemoglobin 24.1 pg (27.0-33.0); Mean Corpuscular Volume 77.6 fL (80-95); Mean Platelet Volume 10.5 fL (8.0-11.0); Platelet Count 271 x1000/uL (130-400); RBC 4.07 m/cumm (4.50-6.00); RBC Distribution Width 18.9 % (11.8-14.1)
[2018-04-27 07:49] LABS: Anion Gap 8.3 mmol/L (3-11); BUN 50 mg/dL (7-18); C-Reactive Protein 4.86 mg/dL (0.0-0.3); CO2 26.7 mmol/L (21.0-32.0); CREATININE 2.03 mg/dL (0.70-1.30); Calcium 7.8 mg/dL (8.5-10.1); Chloride 108 mmol/L (98-107); Estimated GFR 33.78 (mL/min/1.73m2); Glucose 223 mg/dL (70-100); Sodium 143 mmol/L (136-145)
[2018-04-27 07:57] LABS: Potassium 2.9 mmol/L (3.5-5.1)
[2018-04-27 08:18] LABS: Absolute Monocyte Count 1.05 k/cumm (0.11-0.7); Absolute Neutrophil Count 13.35 k/cumm (1.2-6.7)
[2018-04-27 08:19] LABS: Anisocytosis 2+; Basophilic Stippling Present; Diff Comment Manual Differential; Hypochromasia 3+; Microcytosis 3+; Ovalocytes 2+; Polychromasia Present
[2018-04-27 08:20] LABS: Poikilocytes 2+
--- NOTE | 2018-04-27 09:25 | PHARADMIT ---
Addendum entered by Khalida Church 05/04/18 17:21: Pharmacy Note Subjective Pt very slow to improve Objective Afebrile, WBCdown 12.71, VS ok, K+ 6.2 this afternoon, C.Diff negative,SCr up 2.76, Creactive protein up 6.04 Assessment Been dealing with elevated Potassium level for 2 days, rec'd Veltassa x1, Kayexylate 30gram x2, level is decreasing (highest K+ 7.5), IV regular insulin seems to work the best Meds all checked, only the Zosyn can cause Hyperkalemia or Hypokalemia, Heparin also, aware, pt receiving Heparin SC, repeat K+ level tonight @ 8pm ? aspiration event Zosyn extended infusion...may need renal adjustment if CrCl<20ml/min Continues on Vanco..trough high, dose adjusted Plan Blood cultures repeated 05/03, repeat Urine being checked follow Vanco, Anbx coverage w/pending cultures KELLEE ordered when possible Original Note: Admission Pharmacy Clinical Review UTI Code Status Full Code Current Weight 109 kg Renally Cleared and Narrow Therapeutic Index Meds Crcl ~ 50.7 mL/min using adjusted body weight current meds okay QTc Value / Action Taken QTc 416 BP Control, Fever BP 148/63 afebrile Electrolytes reviewed K+ 2.9 Cl DVT Prophylaxis enoxaparin Opiate Usage / Scheduled Bowel Regimen Ordered no/prn Plt/SCr for Heparin / Enoxaparin plt 271 SCr 2.03 INR for Warfarin n/a H/H stable, WBC/Bands h/h 9.8/31.6 wbc 15.00 Antibiotic appropriateness meropenem and vancomycin Cultures and Sensitivities -blood cultures first set grew MRSA, second set pending -urine culture first one grew gram negative aleah (possible contamination), second and third grew gram+ vijay -MRSA positive -C.diff negative -body fluid culture grew vijay Surgical ABX d/c within 24 hr n/a DM control / Insulin Dosing BG 223 scheduled and sliding scale aspart; scheduled glargine Heart Failure (Check EF%) (ARYA's, B-Block, Diuretics) amlodipine, furosemide, metoprolol IV to PO Switch n/a Home Meds Reviewed -multiple forms of vitamin D increase risk of adverse/toxic effects -carbamazepine may increase the metabolism/decrease the serum concentration and effectiveness of amlodipine, risperidone, and venlafaxine -separate the administration of magnesium chloride, multivitamin, and ferrous sulfate from levothyroxine -clonidine may enhance the AV-blocking effect of metoprolol; sinus node dysfunction may be enhanced. closely monitor heart rate Home Meds Not Ordered adalimumab, ergocalciferol, omega-3, prednisone (has other steroid ordered), risperidone Comments vanco trough ordered for tomorrow @ 1500
[2018-04-27 09:45] LABS: BE -1.3 mmol/L (-3-3); HCO3 25 mmol/L (22-28); pCO2 48 mmHg (34-47); pH 7.32 (7.35-7.45); pO2 95 mmHg (83-108); sO2 98 % (94-98); tCO2 24 mmol/L (22-29)
[2018-04-27 09:47] LABS: FIO2 RA %; Site Left Radial
[2018-04-27] MEDS: Furosemide 20 MG/2 ML VIAL IVP ×2 (10:10→16:05)
[2018-04-27] MEDS: Multivitamin TAB 1 TAB PO (10:24)
[2018-04-27] MEDS: cloNIDine 0.1 MG TAB 0.3 MG PO ×3 (10:24→19:34)
[2018-04-27] MEDS: hydrALAZINE 10 MG TAB PO ×3 (10:24→19:33)
[2018-04-27] MEDS: Venlafaxine 37.5 MG CAPCR 75 MG PO (10:24)
[2018-04-27] MEDS: Aspirin E.C. 81 MG TABEC PO ×2 (10:24→19:34)
[2018-04-27] MEDS: Ferrous Sulfate 325 MG TAB PO ×2 (10:24→19:34)
[2018-04-27] MEDS: amLODIPine 5 MG TAB 10 MG PO (10:25)
[2018-04-27] MEDS: Magnesium Chloride 64 MG TABCR PO ×2 (10:25→19:33)
[2018-04-27] MEDS: Ascorbic Acid 500 MG TAB PO ×2 (10:25→19:34)
[2018-04-27] MEDS: Terazosin 2 MG CAP 4 MG PO ×2 (10:25→19:33)
[2018-04-27] MEDS: Metoprolol CR 25 MG TABCR PO (10:26)
[2018-04-27] MEDS: carBAMazepine 100 MG CHEW PO ×3 (10:26→19:34)
[2018-04-27] MEDS: Folic Acid 1 MG TAB PO (10:26)
[2018-04-27] MEDS: Omeprazole 20 MG CAPCR PO (10:26)
[2018-04-27] MEDS: Cyanocobalamin 500 MCG TAB 1000 MCG PO (10:27)
[2018-04-27] MEDS: Lactobacillus Acidophilus CAP 1 CAP PO ×3 (10:27→19:34)
[2018-04-27] MEDS: Insulin Aspart 300 UNITS/3 ML PEN SC ×6 (10:33→17:26)
[2018-04-27] MEDS: Insulin Glargine 300 UNITS/3 ML PEN 60 UNITS SC (10:34)
[2018-04-27] MEDS: Ketoconazole 2% CREAM 15 GM TUBE TP (10:38)
--- NOTE | 2018-04-27 11:01 | PDOC.CMPRO ---
- If Service Date Differs Date of service: 04/27/18 Time of Service: 11:01 Care Management Progress Note S/O: Brendan is lying in bed in the ICU this morning. CM contacted Isela, [facility], and updated her on Brendan's current status. Brendan's BC are positive, and states that the Bicarb drip will be DC'd today. Brendan's mentation has improved overnight. No change in DC plan. Discussion had around a podiatry consult and ? ortho consult today. A: 58 y/o male admitted 04/26/18 with UTI/Sepsis P: Brendan will return to [facility] once medically cleared. He will transport via w/c van once ready.
--- NOTE | 2018-04-27 11:09 | CMPROGNOTE_ITS ---
- If Service Date Differs Date of service: 04/27/18 Time of Service: 11:01 Care Management Progress Note S/O: Brendan is lying in bed in the ICU this morning. CM contacted Isela, [facility], and updated her on Brendan's current status. Brendan's BC are positive, and states that the Bicarb drip will be DC'd today. Brendan's mentation has improved overnight. No change in DC plan. Discussion had around a podiatry consult and ? ortho consult today. A: 58 y/o male admitted 04/26/18 with UTI/Sepsis P: Brendan will return to [facility] once medically cleared. He will transport via w/c van once ready.
--- NOTE | 2018-04-27 11:14 | NUR.NOTE ---
The patient had become SOB feeling with increased WOB using abd mucsles. Dr. Canela was notified and02 2L/NC was placed. Pt still able to speak in full sentences and is asking where his breakfast is. ABG was done and Dr. Canela feels that pt is breathing off CO2. Dr. Canela in the unit to see patient. Wants RN to monitor breathing and notify MD if it worsens after Lasix. Nursing Note:
[2018-04-27] MEDS: Potassium Chloride 20 MEQ TABCR 40 MEQ PO ×2 (12:41→16:05)
[2018-04-27 14:01] LABS: BE -1.1 mmol/L (-3-3); HCO3 24 mmol/L (22-28); pCO2 44 mmHg (34-47); pH 7.36 (7.35-7.45); pO2 62 mmHg (83-108); sO2 93 % (94-98); tCO2 23 mmol/L (22-29)
[2018-04-27 14:02] LABS: FIO2 21 %; Site Left Radial
--- NOTE | 2018-04-27 17:44 | PGE_ITS ---
Date of Service Date of service: 04/27/18 Time of Service: 12:45 Assessment and Plan (1) Metabolic acidosis: Current visit: No Status: Acute Much improved; likely due to acute on chronic adrenal insuffiency. Off bicarb gtt. ABG shows a normal pH - I am, however, worried that this may not last, i.e. bicarb may wear off. For this reason, I'd like to keep him in the ICU one more night. Continue diuresis, IV hydrocortisone. Check VBG in am. (2) Sepsis: Current visit: Yes Status: Acute Blood cultures done on admission are positive for MRSA. Repeat cultures done today. Checking echo Urine C&S is positive for mixed gram positive vijay. There is a question of involvement of the hardware in his RUE - WBC scan ordered. Continue vancomycin/consider discontinuing meropenem. Will consult with ID - is there benefit for rifampin. (3) UTI (urinary tract infection): Current visit: Yes Status: Acute Present on admission, culture mixed. As above. Has a ruiz - will attempt to d/c tomorrow. (4) Insufficiency, adrenal: Current visit: Yes Status: Acute As above. Continue on hydrocortisone 50 mg IV Q6hrs for another 24 hours prior to tapering (5) Toxic metabolic encephalopathy: Current visit: No Status: Resolved Due to combination of sepsis, adrenal insufficiency and metabolic acidosis. Monitor as above conditions are getting addressed. (6) Pulmonary hypertension: Current visit: No Status: Chronic Carefully monitor volume status. (7) Chronic cholecystitis: Current visit: No Status: Acute Previously thought to be a poor surgical candidate. Will need to follow up with [facility] general surgery. Cholecystostomy drain is patent/draining. Previously re-evaluated by IR at [facility] and felt to be expected to be contaminated as it is open to the GI tract. (8) Hyperkalemia: Current visit: No Status: Resolved In setting of adrenal insufficiency and metabolic acidosis. Monitor. (9) Right elbow pain: Current visit: Yes Status: Acute Seen by ortho. Await WBC scan. (10) CKD (chronic kidney disease): Current visit: No Status: Chronic At baseline. Monitor Cr while diuresing, but no further workup at this time. 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 Has previously met with palliative care and maintained same decision. Keep in ICU tonight. (13) DVT prophylaxis: Current visit: Yes Status: Acute Will start SQ heparin as no further bleeding reported Continue TEDs and SCD's Subjective Interval history since last seen: Short of breath this am, but doing much better now. Denies dizziness, chest pain, nausea,vomiting. R elbow still bothers him. Seen by orthopedics - Dr Damon is not convinced that the elbow is infected, but recommends obtaining a WBC scan. Exam Narrative Exam Narrative: General: middle aged male, looks much better - initially tachypneic, but much better in follow up, appears edematous, faster to respond, A&Ox3, recognizes me. Truncal rash unchanged. HEENT: EOMI, MMM, face edematous Heart: RRR Lungs: CTAB/diminished ABdomen: soft, nontender, nondistended; cholecystostomy and ileostomy in place Extremities: 2+ BLE edema; R shoulder appears swollen, extremely TTP, no obvious erythema/drainage/induration Objective Objective Clinical Data: Abnormal lab results 04/26/18 04/27/18 04/27/18 Range/Units 22:20 07:11 07:11 WBC 15.00 H (4.4-10.8) k/cumm RBC 4.07 L (4.50-6.00) m/cumm Hgb 9.8 L (13.5-17.5) g/dL Hct 31.6 L (40.0-50.0) % MCV 77.6 L (80-95) fL MCH 24.1 L (27.0-33.0) pg MCHC 31.0 L (32.0-36.0) g/dL RDW 18.9 H (11.8-14.1) % Absolute Neutrophils 13.35 H (1.2-6.7) k/cumm Absolute Lymphocytes 0.30 L (1.2-3.4) k/cumm Absolute Monocytes 1.05 H (0.11-0.7) k/cumm pCO2 (34-47) mmHg pO2 (83-108) mmHg O2 Saturation (94-98) % ABG pH (7.35-7.45) Potassium 3.2 L D 2.9 L* (3.5-5.1) mmol/L Chloride 109 H 108 H (98-107) mmol/L BUN 58 H 50 H (7-18) mg/dL Creatinine 2.42 H 2.03 H (0.70-1.30) mg/dL Glucose 255 H 223 H (70-100) mg/dL Calcium 7.7 L 7.8 L (8.5-10.1) mg/dL C-Reactive Protein 4.86 H (0.0-0.3) mg/dL 04/27/18 04/27/18 Range/Units 09:37 13:00 WBC (4.4-10.8) k/cumm RBC (4.50-6.00) m/cumm Hgb (13.5-17.5) g/dL Hct (40.0-50.0) % MCV (80-95) fL MCH (27.0-33.0) pg MCHC (32.0-36.0) g/dL RDW (11.8-14.1) % Absolute Neutrophils (1.2-6.7) k/cumm Absolute Lymphocytes (1.2-3.4) k/cumm Absolute Monocytes (0.11-0.7) k/cumm pCO2 48 H (34-47) mmHg pO2 62 L (83-108) mmHg O2 Saturation 93 L (94-98) % ABG pH 7.32 L (7.35-7.45) Potassium (3.5-5.1) mmol/L Chloride (98-107) mmol/L BUN (7-18) mg/dL Creatinine (0.70-1.30) mg/dL Glucose (70-100) mg/dL Calcium (8.5-10.1) mg/dL C-Reactive Protein (0.0-0.3) mg/dL Vital Signs Temperature 36.8 C 04/27/18 16:10 Temperature Source Temporal Artery Scan 04/27/18 16:10 Pulse 56 L 04/27/18 17:04 Pulse Rhythm Regular 04/26/18 09:20 Pulse 66 04/27/18 16:10 Respiratory Rate 16 04/27/18 17:04 Respiratory Effort Non-Labored 04/27/18 16:10 Respiratory Depth Shallow 03/04/19 16:10 Respiratory Pattern Normal 04/27/18 16:10 Blood Pressure 184/101 H 04/27/18 16:01 Blood Pressure Mean 120 04/27/18 16:01 Blood Pressure Position Supine 04/26/18 23:17 Pulse Oximetry 97 04/27/18 16:01 Oxygen Delivery Method Room Air 04/26/18 23:17 Oxygen Flow Rate 0 04/26/18 23:17 Pain Level 8 04/27/18 16:10 Intake & Output 04/26/18 04/27/18 04/27/18 23:59 11:59 23:59 Intake Total 3530 / 5360 1175 / 3243 2068 / 3243 Output Total 4275 / 6050 4400 / 5900 1500 / 5900 Balance -745 / -690 -3225 / -2657 568 / -2657 Weight 110.4 kg 109 kg Intake: IV 2350 / 3700 20 / 1470 1450 / 1470 Oral 1180 / 1660 980 / 1598 618 / 1598 Injectate 175 / 175 right abdomen 175 / 175 Output: Drainage 100 / 425 325 / 525 200 / 525 right abdomen 100 / 425 325 / 525 200 / 525 Urine 3575 / 4825 3575 / 4625 1050 / 4625 Stool 600 / 800 500 / 750 250 / 750 Other: Urine Color Pale Pale Pale Yellow Yellow Yellow Urine Appearance Clear Clear Clear Comment Ruiz in place, draining clear pale yellow urine. Ruiz in place, draining clear pale yellow urine. Ruiz in place, draining clear pale yellow urine. Stool Size Moderate Stool Characteristics Soft Soft Liquid Brown Brown Voiding Methods Indwelling Catheter Laboratory Results WBC 15.00 k/cumm (4.4-10.8) H 04/27/18 07:11 RBC 4.07 m/cumm (4.50-6.00) L 04/27/18 07:11 Hgb 9.8 g/dL (13.5-17.5) L 04/27/18 07:11 Hct 31.6 % (40.0-50.0) L 04/27/18 07:11 MCV 77.6 fL (80-95) L 04/27/18 07:11 MCH 24.1 pg (27.0-33.0) L 04/27/18 07:11 MCHC 31.0 g/dL (32.0-36.0) L 04/27/18 07:11 RDW 18.9 % (11.8-14.1) H 04/27/18 07:11 Plt Count 271 x1000/uL (130-400) 04/27/18 07:11 MPV 10.5 fL (8.0-11.0) 04/27/18 07:11 Immature Gran % See Differential 04/27/18 07:11 Neutrophils % 88.0 04/27/18 07:11 Band Neutrophils % 1.0 % 04/27/18 07:11 Lymphocytes % 2.0 04/27/18 07:11 Monocytes % 7.0 04/27/18 07:11 Eosinophils % 0.0 04/27/18 07:11 Basophils % 0.0 04/27/18 07:11 Myelocytes % 2.0 % 04/27/18 07:11 Absolute Neutrophils 13.35 k/cumm (1.2-6.7) H 04/27/18 07:11 Absolute Lymphocytes 0.30 k/cumm (1.2-3.4) L 04/27/18 07:11 Absolute Monocytes 1.05 k/cumm (0.11-0.7) H 04/27/18 07:11 Absolute Eosinophils 0.00 k/cumm (0.0-0.7) 04/27/18 07:11 Absolute Basophils 0.00 k/cumm (0.0-0.2) 04/27/18 07:11 Nucleated RBCs 1 /100WBC 04/26/18 07:30 Differential Comment Manual differential 04/27/18 07:11 RBC Morphology See below 04/27/18 07:11 Polychromasia Present 04/27/18 07:11 Hypochromasia 3+ 04/27/18 07:11 Poikilocytosis 2+ 04/27/18 07:11 Basophilic Stippling Present 04/27/18 07:11 Anisocytosis 2+ 04/27/18 07:11 Microcytosis 3+ 04/27/18 07:11 Ovalocytes 2+ 04/27/18 07:11 Sathya Cells 2+ 04/26/18 07:30 Acanthocytes (Spur) 1+ 04/26/18 07:30 PT 9.6 sec (9.3-11.0) 04/26/18 07:30 INR 1.0 (0.9-1.1) 04/26/18 07:30 Sample Site Left radial 04/27/18 13:00 pCO2 44 mmHg (34-47) 04/27/18 13:00 pO2 62 mmHg (83-108) L 04/27/18 13:00 O2 Saturation 93 % (94-98) L 04/27/18 13:00 ABG pH 7.36 (7.35-7.45) 04/27/18 13:00 ABG HCO3 24 mmol/L (22-28) 04/27/18 13:00 ABG Total CO2 23 mmol/L (22-29) 04/27/18 13:00 ABG Base Excess -1.1 mmol/L (-3-3) 04/27/18 13:00 VBG pH 7.21 (7.32-7.43) L 04/26/18 17:05 VBG pCO2 46 mm/Hg (34-47) 04/26/18 17:05 VBG pO2 94 mm/Hg (28-44) H 04/26/18 17:05 VBG HCO3 19 mmol/L (22-28) L 04/26/18 17:05 VBG Total CO2 18 mmol/L (22-29) L 04/26/18 17:05 VBG O2 Saturation 98 % (70-80) H 04/26/18 17:05 VBG Base Excess -9.2 mmol/L (-3-3) L 04/26/18 17:05 FiO2 21 % 04/27/18 13:00 Sodium 143 mmol/L (136-145) 04/27/18 07:11 Potassium 2.9 mmol/L (3.5-5.1) L* 04/27/18 07:11 Chloride 108 mmol/L (98-107) H 04/27/18 07:11 Carbon Dioxide 26.7 mmol/L (21.0-32.0) 04/27/18 07:11 Anion Gap 8.3 mmol/L (3-11) 04/27/18 07:11 BUN 50 mg/dL (7-18) H 04/27/18 07:11 Creatinine 2.03 mg/dL (0.70-1.30) H 04/27/18 07:11 Estimated GFR/1.73 m2 33.78 (mL/min/1.73m2) 04/27/18 07:11 Glucose 223 mg/dL (70-100) H 04/27/18 07:11 Lactate 0.5 mmol/l (0.6-1.4) L 04/26/18 07:30 Calcium 7.8 mg/dL (8.5-10.1) L 04/27/18 07:11 Magnesium 2.0 mg/dL (1.8-2.4) 04/27/18 07:11 Total Bilirubin 0.2 mg/dL (0.2-1.0) 04/26/18 07:30 AST 9 U/L (15-37) L 04/26/18 07:30 ALT 15 U/L (12-78) 04/26/18 07:30 Alkaline Phosphatase 145 U/L (46-116) H 04/26/18 07:30 Ammonia 24 umol/L (11-32) 04/25/18 20:43 Troponin I 0.06 ng/mL (0.00-0.06) 04/26/18 07:30 C-Reactive Protein 4.86 mg/dL (0.0-0.3) H 04/27/18 07:11 Total Protein 6.1 g/dL (6.4-8.2) L 04/26/18 07:30 Albumin 2.5 g/dL (3.4-5.0) L 04/26/18 07:30 TSH 0.37 uIU/mL (0.358-3.74) 04/26/18 07:30 Urine Color Yellow (Yellow) 04/26/18 11:15 Urine Clarity Clear 04/26/18 11:15 Urine pH 6.0 (5-8) 04/26/18 11:15 Ur Specific [place] 1.015 (1.005-1.025) 04/26/18 11:15 Urine Protein 100 mg/dL (Negative) H 04/26/18 11:15 Urine Ketones Negative mg/dL (Negative) 04/26/18 11:15 Urine Blood Moderate (Negative) H 04/26/18 11:15 Urine Nitrite Negative (Negative) 04/26/18 11:15 Urine Bilirubin Negative (Negative) 04/26/18 11:15 Urine Urobilinogen 0.2 EU/dL (Up TO 0.2) 04/26/18 11:15 Ur Leukocyte Esterase Small (Negative) H 04/26/18 11:15 Urine RBC Not Applicable 04/26/18 11:15 Urine WBC >50 HPF (0-5) 04/26/18 11:15 Ur Epithelial Cells Not Applicable 04/26/18 11:15 Urine Crystals Not Applicable 04/26/18 11:15 Urine Bacteria Not Applicable 04/26/18 11:15 Urine Casts 0-2 coarse granular LPF (Negative) 04/26/18 01:15 Urine Mucus Not Applicable 04/26/18 11:15 Urine Other Few yeast (Negative) 04/26/18 11:15 Ur Culture Indicated? Yes 04/26/18 11:15 Urine Glucose Negative mg/dL (Negative) 04/26/18 11:15 Acetaminophen 5 ug/mL (10-30) L 04/25/18 20:43 Ethyl Alcohol < 3.0 mg/dL (<3) 04/25/18 20:43 C.difficile Tox Ab Neut Cancelled 04/26/18 10:13
[2018-04-27] MEDS: Heparin 5,000 UNITS/ML VIAL 5000 UNITS SC (19:37)
[2018-04-28] VITALS (20 sets, daily range): BP systolic 150–191; BP diastolic 67–78; PULSE 56–77; RESP 15–23; TEMP 36.4–37.2; O2SAT 92–98
[2018-04-28] MEDS: risperiDONE 1 MG TAB 3 MG PO ×3 (00:06→22:13)
[2018-04-28] MEDS: Insulin Aspart 300 UNITS/3 ML PEN SC ×8 (00:06→22:23)
[2018-04-28] MEDS: traZODone 50 MG TAB PO ×3 (00:07→22:14)
[2018-04-28] MEDS: Gabapentin 300 MG CAP PO ×5 (00:07→20:37)
[2018-04-28] MEDS: Melatonin 3 MG TAB 9 MG PO ×3 (00:07→22:13)
[2018-04-28] MEDS: Hydrocortisone SOD SUC. 100 MG VIAL 50 MG IVP ×4 (00:11→20:37)
[2018-04-28] MEDS: MEROPENEM 1 GM in Normal Saline 100 ML IVPB ×2 (03:33→18:10)
[2018-04-28] MEDS: Levothyroxine 75 MCG TAB 37.5 MCG PO (05:17)
[2018-04-28 07:12] LABS: BE (Venous) 0.1 mmol/L (-3-3); HCO3 (Venous) 26 mmol/L (22-28); O2 Sat (Venous) 99 % (70-80); TCO2 (Venous) 24 mmol/L (22-29); pCO2 (Venous) 48 mm/Hg (34-47); pH (Venous) 7.34 (7.32-7.43); pO2 (Venous) 104 mm/Hg (28-44)
[2018-04-28 07:18] LABS: Abs Immature Grans 0.22 k/cumm (0.0-0.09); Absolute Eosinophil Count 0.12 k/cumm (0.0-0.7); Basophils % 0.2; Eosinophils % 0.9; HCT 32.5 % (40.0-50.0); HGB 10.1 g/dL (13.5-17.5); Immature Grans % 1.7; Lymphocytes % 3.8; Mean Corp. HGB Concentration 31.1 g/dL (32.0-36.0); Mean Corpuscular Hemoglobin 24.1 pg (27.0-33.0); Mean Corpuscular Volume 77.6 fL (80-95); Monocytes % 5.3; Neutrophils % 88.1; Platelet Count 278 x1000/uL (130-400); RBC 4.19 m/cumm (4.50-6.00); RBC Distribution Width 18.8 % (11.8-14.1); White Blood Cell Count 13.13 k/cumm (4.4-10.8)
[2018-04-28 07:27] LABS: Anion Gap 8.2 mmol/L (3-11); BUN 47 mg/dL (7-18); C-Reactive Protein 3.07 mg/dL (0.0-0.3); CO2 27.8 mmol/L (21.0-32.0); CREATININE 2.17 mg/dL (0.70-1.30); Calcium 7.9 mg/dL (8.5-10.1); Chloride 108 mmol/L (98-107); Estimated GFR 31.28 (mL/min/1.73m2); Glucose 223 mg/dL (70-100); Magnesium 1.8 mg/dL (1.8-2.4); Potassium 3.5 mmol/L (3.5-5.1); Sodium 144 mmol/L (136-145)
[2018-04-28 07:37] LABS: Absolute Basophil Count 0.03 k/cumm (0.0-0.2); Absolute Neutrophil Count 11.57 k/cumm (1.2-6.7)
[2018-04-28] MEDS: hydrALAZINE 10 MG TAB PO ×3 (09:03→20:36)
[2018-04-28] MEDS: cloNIDine 0.1 MG TAB 0.3 MG PO ×3 (09:04→20:36)
[2018-04-28] MEDS: Omeprazole 20 MG CAPCR PO (09:04)
[2018-04-28] MEDS: Ferrous Sulfate 325 MG TAB PO ×2 (09:04→20:37)
[2018-04-28] MEDS: amLODIPine 5 MG TAB 10 MG PO (09:04)
[2018-04-28] MEDS: Metoprolol CR 25 MG TABCR PO (09:04)
[2018-04-28] MEDS: Aspirin E.C. 81 MG TABEC PO ×2 (09:04→20:36)
[2018-04-28] MEDS: Terazosin 2 MG CAP 4 MG PO ×2 (09:04→20:33)
[2018-04-28] MEDS: Lactobacillus Acidophilus CAP 1 CAP PO ×3 (09:04→20:35)
[2018-04-28] MEDS: Ascorbic Acid 500 MG TAB PO ×2 (09:05→20:36)
[2018-04-28] MEDS: Multivitamin TAB 1 TAB PO (09:05)
[2018-04-28] MEDS: Cyanocobalamin 500 MCG TAB 1000 MCG PO (09:05)
[2018-04-28] MEDS: Venlafaxine 37.5 MG CAPCR 75 MG PO (09:05)
[2018-04-28] MEDS: carBAMazepine 100 MG CHEW PO ×3 (09:05→20:35)
[2018-04-28] MEDS: Magnesium Chloride 64 MG TABCR PO ×2 (09:05→20:33)
[2018-04-28] MEDS: Folic Acid 1 MG TAB PO (09:06)
--- NOTE | 2018-04-28 09:14 | CMPROGNOTE_ITS ---
Care Management Progress Note S/O: Brendan is medically complex, with nine ED visits and five inpatient stays resulting 57 inpatient days within the last year. He has resided at [facility] for the last nine years. Brendan continues to be closely monitored in the ICU with no change to discharge plan at this time. A: 58 year old male admitted to [facility] 04/26/18 for UTI P: Brendan will return to [facility] once medically cleared. He will transport via [facility] when ready.
[2018-04-28] MEDS: Furosemide 20 MG/2 ML VIAL IVP ×2 (09:19→18:10)
[2018-04-28] MEDS: Normal Saline Flush 10 ML SYR IVP ×3 (09:20→20:35)
[2018-04-28] MEDS: Ketoconazole 2% CREAM 15 GM TUBE TP (09:53)
[2018-04-28] MEDS: Insulin Glargine 300 UNITS/3 ML PEN 60 UNITS SC (09:56)
--- NOTE | 2018-04-28 11:21 | OT.INIE ---
Occupational Therapy Notes Inpatient Occupational Therapy Evaluation Date: 04/28/18 Referring Doctor:Priscila Canela MD OT Orders: Eval and Treat Precautions: Fall Risk, Contact Precautions PATIENT PROFILE/ADMITTING DIAGNOSIS: Pt is a 58 year old male who has been admitted multiple times to [facility] from [facility] since October 2017. He was admtted through the ER on 04/26/18 for a urinary tract infection. Past Medical History: Diabetic neuropathy, diabetic foot ulcers, rheumatoid arthritis, osteoarthritis bilateral knees, sacral decubitus ulcer, chronic renal insufficiency, coronary artery disease, crohn's disease, s/p colectomy, anemia, urinary tract infection, dyslipidemia, hypoandrogenism, cholelithiasis, hypertension, bipolar Disorder, chronic back pain, lower extremity edema, obesity, diabetes mellitus, MRSA blood and urine. Current Functional Limitations: Decreased functional activity tolerance, decreased (I) in ADLs. Pt reports that he is not currently at his baseline for ADLs or baseline level of function since last hospitalization at [facility]. Social History/Home Situation: Pt resides at [facility]. He reports that his is currently total (A) for ADLs but this has recently decline since November 2017 which pt reports at every evaluation performed by OT. Pt states that he is unable to perform functional ambulation at this time and his legs are weak. Equipment owned/DME: FWW which he uses for ambulation, he is a resident of SNF so all other DME are met through the facility. SUBJECTIVE: Pt was lying in bed when OT arrived. He was very pleasant and states he was looking forward to PT/OT services. He states that he has been in and out of the hospital 6x since October 2017. He reports that he is having blood cultures performed today and the plan is to hopefully find the source of the issue that he has been having. He reports that he is hopeful and that he would like to get out of the [facility] and go to a personal home owned by him. OBJECTIVE: General Observation: MIRANDA Downing (L) UE, telemetry Mental Status: A&O to name, location Pain: no c/o pain, however pts (R) elbow is swollen compared to last time OT saw pt. ROM: RUE Shoulder flexion to 60*, elbow unable due to pain L UE Shoulder flexion ~30*, elbow flexion WFL STRENGTH: RUE Unable to test shoulder flexion or elbow marketing automation analyst is weak and symmetrical LUE Unable to test shoulder flexion or elbow marketing automation analyst is weak and symmetrical BALANCE: Static sitting normal Dynamic Sitting good Static Standing NT Dynamic Standing NT SPECIAL TESTS: Daily Activity Limitations Standardized Measure [facility] AM -PAC ?6 clicks? Daily Activity Inpatient Short Form: Raw score: 13 Standardized score: 32.03 CMS score: 63.03% INFORMED CONSENT/EDUCATION: Pt instructed in purpose of OT Consult and plan of care. ASSESSMENT: Patient is a 58-year-old male referred to occupational therapy services after being admitted through the ER at [facility] urinary tract infection. Pt has been seen multiple times here at [facility] since October 2017 in setting of Bipolar Disorder, chronic back pain, lower extremity edema, obesity, diabetes mellitus, diabetic neuropathy, diabetic foot ulcers, rheumatoid arthritis, osteoarthritis bilateral knees, sacral decubitus ulcer, chronic renal insufficiency, coronary artery disease, crohn's disease, s/p colectomy, anemia, urinary tract infection, dyslipidemia, hypoandrogenism, cholelithiasis, hypertension. Patient presents with clinical signs and symptoms consistent with this dx and deconditioning, as demonstrated by the following impairment level findings: Decreased (B) UE ROM, Decreased (B) UE strengthening, decreased functional activity tolerance, decreased (I) in ADLs, decreased functional dynamic simulations. Impairments are contributing to the following functional limitations: Difficulty performing ADL routine per pt's baseline, decreased functional mobility, decreased gross and fine motor control of (B) UE. OT recommends that pt return to [facility] when medically cleared per MD. AMPAC score 13, CMS score 63.03% Patient is assessed as a Moderate 00569 complexity based on the following: History: See Above Examination: See Above Presentation: Evolving Decision Making: AMPAC score 13, CMS score 63.03% GOALS Goals x1 week in hospital setting 1. Transfers CGA, FWW 2. Dressing: Sitting on side of bed, pt will be able to put at least one of his UE into the hospital gown (I) with min verbal cues. 3. Bathing: Sitting on side of bed pt will be able to wash face, (B) UE and abdomen (I) with min verbal cues. 4. Pts marketing automation analyst strength will improve to 4/5 (B) and pt will be able to grasp small objects with increased (I) 5. Pt will be able to wash his (B) LE to his kness (I) in the sitting position. PLAN OF CARE/TREATMENT PLAN: 1x/day, 5 days/ week x 1week Initiate Occupational Therapy Services for bathing, dressing, grooming, toileting, eating, transfer training. DISCHARGE RECOMMENDATIONS Return to [facility] when medically cleared per MD. TREATMENT TIME/MINUTES/CODES 99058, 30 minutes (10:50) Suzanne Javier OTR/L [facility]
--- NOTE | 2018-04-28 11:33 | OTIE_ITS ---
Occupational Therapy Notes Inpatient Occupational Therapy Evaluation Date: 04/28/18 Referring Doctor:Priscila Canela MD OT Orders: Eval and Treat Precautions: Fall Risk, Contact Precautions PATIENT PROFILE/ADMITTING DIAGNOSIS: Pt is a 58 year old male who has been admitted multiple times to [facility] from [facility] since October 2017. He was admtted through the ER on 04/26/18 for a urinary tract infection. Past Medical History: Diabetic neuropathy, diabetic foot ulcers, rheumatoid arthritis, osteoarthritis bilateral knees, sacral decubitus ulcer, chronic renal insufficiency, coronary artery disease, crohn's disease, s/p colectomy, anemia, urinary tract infection, dyslipidemia, hypoandrogenism, cholelithiasis, hypertension, bipolar Disorder, chronic back pain, lower extremity edema, obesity, diabetes mellitus, MRSA blood and urine. Current Functional Limitations: Decreased functional activity tolerance, decreased (I) in ADLs. Pt reports that he is not currently at his baseline for ADLs or baseline level of function since last hospitalization at [facility]. Social History/Home Situation: Pt resides at [facility]. He rep orts that his is currently total (A) for ADLs but this has recently decline since November 2017 which pt reports at every evaluation performed by OT. Pt states that he is unable to perform functional ambulation at this time and his legs are weak. Equipment owned/DME: FWW which he uses for ambulation, he is a resident of SNF so all other DME are met through the facility. SUBJECTIVE: Pt was lying in bed when OT arrived. He was very pleasant and states he was looking forward to PT/OT services. He states that he has been in and out of the hospital 6x since October 2017. He reports that he is having blood cultures performed today and the plan is to hopefully find the source of the issue that he has been having. He reports that he is hopeful and that he would like to get out of the [facility] and go to a personal home owned by him. OBJECTIVE: General Observation: MIRANDA Downing (L) UE, telemetry Mental Status: A&O to name, location Pain: no c/o pain, however pts (R) elbow is swollen compared to last time OT saw pt. ROM: RUE Shoulder flexion to 60*, elbow unable due to pain L UE Shoulder flexion ~30*, elbow flexion WFL STRENGTH: RUE Unable to test shoulder flexion or elbow wheel worker is weak and symmetrical LUE Unable to test shoulder flexion or elbow wheel worker is weak and symmetrical BALANCE: Static sitting normal Dynamic Sitting good Static Standing NT Dynamic Standing NT SPECIAL TESTS: Daily Activity Limitations Standardized Measure [facility] AM -PAC ?6 clicks? Daily Activity Inpatient Short Form: Raw score: 13 Standardized score: 32.03 CMS score: 63.03% INFORMED CONSENT/EDUCATION: Pt instructed in purpose of OT Consult and plan of care. ASSESSMENT: Patient is a 58-year-old male referred to occupational therapy s ervices after being admitted through the ER at [facility] urinary tract infection. Pt has been seen multiple times here at [facility] since October 2017 in setting of Bipolar Disorder, chronic back pain, lower extremity edema, obesity, diabetes mellitus, diabetic neuropathy, diabetic foot ulcers, rheumatoid arthritis, osteoarthritis bilateral knees, sacral decubitus ulcer, chronic renal insufficiency, coronary artery disease, crohn's disease, s/p colectomy, anemia, urinary tract infection, dyslipidemia, hypoandrogenism, cholelithiasis, hypertension. Patient presents with clinical signs and symptoms consistent with this dx and deconditioning, as demonstrated by the following impairment level findings: Decreased (B) UE ROM, Decreased (B) UE strengthening, decreased functional activity tolerance, decreased (I) in ADLs, decreased functional dynamic simulations. Impairments are contributing to the following functional limitations: Difficulty performing ADL routine per pt's baseline, decreased functional mobility, decreased gross and fine motor control of (B) UE. OT recommends that pt return to [facility] when medically cleared per MD. AMPAC score 13, CMS score 63.03% Patient is assessed as a Moderate 32846 complexity based on the following: History: See Above Examination: See Above Presentation: Evolving Decision Making: AMPAC score 13, CMS score 63.03% GOALS Goals x1 week in hospital setting 1. Transfers CGA, FWW 2. Dressing: Sitting on side of bed, pt will be able to put at least one of his UE into the hospital gown (I) with min verbal cues. 3. Bathing: Sitting on side of bed pt will be able to wash face, (B) UE and abdomen (I) with min verbal cues. 4. Pts wheel worker strength will improve to 4/5 (B) and pt will be able to grasp small objects with increased (I) 5. Pt will be able to wash his (B) LE to his kness (I) in the sitting position. PLAN OF CARE/TREATMENT PLAN: 1x/day, 5 days/ week x 1week Initiate Occupational Therapy Services for bathing, dressing, grooming, toileting, eating, transfer training. DISCHARGE RECOMMENDATIONS Return to [facility] when medically cleared per MD. TREATMENT TIME/MINUTES/CODES 42302, 30 minutes (10:50) Suzanne Javier OTR/L [facility]
--- NOTE | 2018-04-28 12:00 | DI.NM_ITS ---
SYMPTOM/DIAGNOSIS: BACTEREMIA, ? SEEDING WHOLE BODY ABSCESS IMAGING SCAN: The patient received 24.0 millicuries of Technetium labeled white blood cells and images were obtained at 1 hour and 3 hour post administration of the radiopharmaceutical. There is normal radiotracer uptake seen in the liver and spleen and the skeleton. No abnormal increased radiotracer uptake is identified. IMPRESSION: Normal examination. No evidence of abnormal increased radiotracer uptake.
--- NOTE | 2018-04-28 13:25 | W.ORTHOCONSU ---
Date of service: 04/27/18 Time of Service: 13:25 History of Present Illness Chief Complaint: Recurrent episodes of sepsis Narrative: This is extremely complex patient with multiple medical problems including diabetes, adrenal insufficiency, rheumatoid arthritis, coronary artery disease, chronic bipolar disorder, toxic metabolic encephalopathy and a host of others. He was admitted to the hospital on 04/26/2018 with a presumptive diagnosis of urinary tract infection with sepsis. There was no mention on either the ER examination or the examination done by Dr. Fisher on admission of any complaints about elbow pain. He is status post ORIF of a supracondylar fracture of his right elbow with intercondylar extension, 11 months ago. This was done at [facility]. Dr. Canela noted that he was complaining of a lot of pain in his right elbow on 04/27/2018. She said that he would let her move the elbow because of pain. For this reason I was consulted to evaluate his right elbow as the possible cause of his sepsis. His blood cultures are growing MRSA. He apparently has had multiple admissions for sepsis in the last year. I reviewed his problem list, his chart and his recent labs. Consult Reason To rule out the right elbow as a source of his sepsis. 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 He also has marked limitation of motion as a result of this. There is nothing to suggest on examination or on x-ray and infection about the right elbow. This is definitely not osteomyelitis. I would search for another source of infection as the cause of his recurrent sepsis. Plan: I have discussed my findings and assessment with Dr. Canela. She will proceed with further workup looking for a source of his recurrent sepsis. Thanks for this consultation. [facility] Medical History MRSA bacteremia (Resolved) Diabetic foot ulcer (Chronic) Poorly controlled type 2 diabetes mellitus with circulatory disorder (Chronic) CKD (chronic kidney disease) (Chronic) Cardiopulmonary arrest with successful resuscitation (Resolved) Heme positive stool (Chronic) Pedal edema (Chronic) Chronic insomnia (Chronic) Hypertension (Chronic) Chronic pain (Chronic) Hypothyroidism (Chronic) Obesity (Chronic) Back pain (Chronic 06/21/13) Inability to get out of bed (Chronic 06/21/13) Poor self care (Chronic 06/21/13) Chronic bipolar disorder (Chronic) CAD (coronary artery disease) (Chronic) Dyslipidemia (Chronic) Rheumatoid arthritis (Chronic) Osteoarthritis of both knees (Chronic) Cholelithiasis (Chronic) Impaired mobility and ADLs (Chronic) Hemorrhagic cystitis (Inactive) Anemia (Chronic) Chronic anxiety (Chronic) Ulcerative colitis (Chronic) Surgical History History of insertion of T-tube into biliary tract (Chronic) S/P colectomy (Chronic) Arthroplasty of knee (Resolved 03/18/12) Fracture, Open Treatment (Resolved) Social History housing: [facility] Smoking and Tabacco status: Never Exam Narrative Exam Narrative: My exam is limited to his right elbow. There is no unusual swelling about the right elbow. There is no erythema. There is no induration. I can palpate the bony landmarks including the olecranon and medial lateral epicondyles quite easily. He does have marked restriction of motion of his right elbow from about 60 degrees to 95 degrees of flexion. Within his limited range he does not have a lot of pain. Pronation supination also not painful. He does not appear to have an effusion at this time. I review his injury films from [facility] from May 2017. I also review most recent films of his right elbow showing ORIF with medial and lateral plates and fixation of olecranon osteotomy with a large cancellus screw. The most recent film shows that he has had a lot of heterotopic bone formed around the elbow. The heterotopic bone also covers the plates. He has had marked loss of elbow joint space. I see no evidence of osteolysis about the distal humerus and proximal ulna. Supracondylar fracture is healed. There is no sign of loosening of any of the screws around the elbow. There is nothing to suggest osteomyelitis on the x-rays. Results Last Vital Signs Temp 36.9 C 04/28/18 12:09 Pulse 56 L 04/28/18 08:41 Resp 20 04/28/18 08:30 BP 170/77 H 04/28/18 08:41 Pulse Ox 95 04/28/18 09:58 Labs : 04/28/18 06:55 04/28/18 06:55 Laboratory Results - last 24 hr 04/27/18 04/28/18 04/28/18 13:00 06:55 06:55 WBC RBC Hgb Hct MCV MCH MCHC RDW Plt Count MPV Immature Gran % Neutrophils % Lymphocytes % Monocytes % Eosinophils % Basophils % Absolute Neutrophils Absolute Lymphocytes Absolute Monocytes Absolute Eosinophils Absolute Basophils Sample Site Left radial pCO2 44 pO2 62 L O2 Saturation 93 L ABG pH 7.36 ABG HCO3 24 ABG Total CO2 23 ABG Base Excess -1.1 VBG pH 7.34 VBG pCO2 48 H VBG pO2 104 H VBG HCO3 26 VBG Total CO2 24 VBG O2 Saturation 99 H VBG Base Excess 0.1 FiO2 21 Sodium 144 Potassium 3.5 Chloride 108 H Carbon Dioxide 27.8 Anion Gap 8.2 BUN 47 H Creatinine 2.17 H Estimated GFR/1.73 m2 31.28 Glucose 223 H Calcium 7.9 L Magnesium 1.8 C-Reactive Protein 3.07 H 04/28/18 06:55 WBC 13.13 H RBC 4.19 L Hgb 10.1 L Hct 32.5 L MCV 77.6 L MCH 24.1 L MCHC 31.1 L RDW 18.8 H Plt Count 278 MPV 10.0 Immature Gran % 1.7 Neutrophils % 88.1 Lymphocytes % 3.8 Monocytes % 5.3 Eosinophils % 0.9 Basophils % 0.2 Absolute Neutrophils 11.57 H Absolute Lymphocytes 0.50 L Absolute Monocytes 0.70 Absolute Eosinophils 0.12 Absolute Basophils 0.03 Sample Site pCO2 pO2 O2 Saturation ABG pH ABG HCO3 ABG Total CO2 ABG Base Excess VBG pH VBG pCO2 VBG pO2 VBG HCO3 VBG Total CO2 VBG O2 Saturation VBG Base Excess FiO2 Sodium Potassium Chloride Carbon Dioxide Anion Gap BUN Creatinine Estimated GFR/1.73 m2 Glucose Calcium Magnesium C-Reactive Protein
[2018-04-28] MEDS: Heparin 5,000 UNITS/ML VIAL 5000 UNITS SC ×2 (14:06→20:38)
--- NOTE | 2018-04-28 14:07 | CHAPLAIN ---
Brendan said he'll be having a test this afternoon to see if it can be determined where his infections start in his body. It's possible his elbow may have something to do with it because he had his elbow repaired. Brendan was his usual pleasant self and easily engaged in a conversation, responding to questions and asking me questions. Brendan said if the source of his infections is found, his only regret will be not being able to see the people in the hospital that he has come to know.
--- NOTE | 2018-04-28 17:44 | W.PM.PROGNOT ---
Date of Service Date of service: 04/28/18 Time of Service: 12:30 Assessment and Plan (1) Metabolic acidosis: Current visit: No Status: Acute Much improved and stable; likely due to acute on chronic adrenal insuffiency. Transferred out of ICU. Continue diuresis, start to taper hyderocortisone (2) Sepsis: Current visit: Yes Status: Acute Blood cultures done on admission are positive for MRSA. Repeat cultures on 04/27/18 show NGTD. Checking echo Urine C&S is reported to have yeast. There is a question of involvement of the hardware in his RUE - await results of WBC scan Continue vancomycin. D/c meropenem. Will consult with ID once results of WBC scan are available - is there benefit for rifampin. (3) UTI (urinary tract infection): Current visit: Yes Status: Acute Present on admission, culture mixed. As above. D/c ruiz. VT x 24 hours. (4) Insufficiency, adrenal: Current visit: Yes Status: Acute As above. Taper hydrocortisone 50 mg IV Q 8hrs (5) Toxic metabolic encephalopathy: Current visit: No Status: Resolved Due to combination of sepsis, adrenal insufficiency and metabolic acidosis. Monitor as above conditions are getting addressed. (6) Pulmonary hypertension: Current visit: No Status: Chronic Carefully monitor volume status. (7) Chronic cholecystitis: Current visit: No Status: Acute Previously thought to be a poor surgical candidate. Will need to follow up with [facility] general surgery. Cholecystostomy drain is patent/draining. Previously re-evaluated by IR at [facility] and felt to be expected to be contaminated as it is open to the GI tract. (8) Hyperkalemia: Current visit: No Status: Resolved In setting of adrenal insufficiency and metabolic acidosis. Monitor. (9) Right elbow pain: Current visit: Yes Status: Acute Seen by ortho. Await WBC scan read. (10) CKD (chronic kidney disease): Current visit: No Status: Chronic At baseline. Monitor Cr while diuresing, but no further workup at this time. 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 Has previously met with palliative care and maintained same decision. Transferred to medical surgical floor (13) DVT prophylaxis: Current visit: Yes Status: Acute SQ heparin as no further bleeding reported Continue TEDs and SCD's Subjective Interval history since last seen: Mr Corley was transferred out of the ICU today. He feels much better. Denies any shortness of breath, dizziness, chest pain, nausea, vomiting. He states both of his legs ache. The R elbow hurts, but not as badly as when he first arrived. Exam Narrative Exam Narrative: General: middle aged male, looks much better. Truncal rash improved HEENT: EOMI, MMM, face edematous Heart: RRR, + NUVIA Lungs: CTAB/diminished ABdomen: soft, nontender, nondistended; cholecystostomy and ileostomy in place Extremities: 2+ BLE edema; R shoulder appears swollen, less TTP and with improved ROM, no obvious erythema/drainage/induration Objective Objective Clinical Data: Abnormal lab results 04/28/18 04/28/18 04/28/18 Range/Units 06:55 06:55 06:55 WBC 13.13 H (4.4-10.8) k/cumm RBC 4.19 L (4.50-6.00) m/cumm Hgb 10.1 L (13.5-17.5) g/dL Hct 32.5 L (40.0-50.0) % MCV 77.6 L (80-95) fL MCH 24.1 L (27.0-33.0) pg MCHC 31.1 L (32.0-36.0) g/dL RDW 18.8 H (11.8-14.1) % Absolute Neutrophils 11.57 H (1.2-6.7) k/cumm Absolute Lymphocytes 0.50 L (1.2-3.4) k/cumm VBG pCO2 48 H (34-47) mm/Hg VBG pO2 104 H (28-44) mm/Hg VBG O2 Saturation 99 H (70-80) % Chloride 108 H (98-107) mmol/L BUN 47 H (7-18) mg/dL Creatinine 2.17 H (0.70-1.30) mg/dL Glucose 223 H (70-100) mg/dL Calcium 7.9 L (8.5-10.1) mg/dL C-Reactive Protein 3.07 H (0.0-0.3) mg/dL Vital Signs Temperature 36.9 C 03/05/19 12:09 Temperature Source Temporal Artery Scan 04/28/18 12:09 Pulse 56 L 04/28/18 08:41 Pulse Rhythm Regular 04/26/18 09:20 Pulse 72 04/28/18 08:41 Respiratory Rate 20 04/28/18 08:30 Respiratory Effort Non-Labored 04/28/18 09:58 Respiratory Depth Shallow 04/28/18 09:58 Respiratory Pattern Normal 04/28/18 09:58 Blood Pressure 170/77 H 04/28/18 08:41 Blood Pressure Mean 101 04/28/18 08:41 Blood Pressure Position Supine 04/28/18 09:58 Pulse Oximetry 95 04/28/18 09:58 Oxygen Delivery Method Room Air 04/28/18 09:58 Oxygen Flow Rate 0 04/28/18 09:58 Pain Level 5 04/28/18 04:16 Intake & Output 04/27/18 04/28/18 04/28/18 23:59 11:59 23:59 Intake Total 2568 / 3743 2490 / 2490 Output Total 3600 / 9050 2495 / 2495 Balance -1032 / -5307 -5 / -5 Weight 110.6 kg Intake: IV 1450 / 1470 350 / 350 Oral 1118 / 2098 2140 / 2140 Output: Drainage 450 / 775 380 / 380 right abdomen 450 / 775 380 / 380 Urine 2500 / 6725 1750 / 1750 Stool 650 / 1550 365 / 365 Other: Urine Color Pale Yellow Yellow Urine Appearance Sediment Clear Sediment Comment Ruiz in place, pale yellow urine with sediment present in the ruiz tube. Ruiz in place, pale yellow urine with sediment present in the ruiz tube. Laboratory Results WBC 13.13 k/cumm (4.4-10.8) H 04/28/18 06:55 RBC 4.19 m/cumm (4.50-6.00) L 04/28/18 06:55 Hgb 10.1 g/dL (13.5-17.5) L 04/28/18 06:55 Hct 32.5 % (40.0-50.0) L 04/28/18 06:55 MCV 77.6 fL (80-95) L 04/28/18 06:55 MCH 24.1 pg (27.0-33.0) L 04/28/18 06:55 MCHC 31.1 g/dL (32.0-36.0) L 04/28/18 06:55 RDW 18.8 % (11.8-14.1) H 04/28/18 06:55 Plt Count 278 x1000/uL (130-400) 04/28/18 06:55 MPV 10.0 fL (8.0-11.0) 04/28/18 06:55 Immature Gran % 1.7 04/28/18 06:55 Neutrophils % 88.1 04/28/18 06:55 Band Neutrophils % 1.0 % 04/27/18 07:11 Lymphocytes % 3.8 04/28/18 06:55 Monocytes % 5.3 04/28/18 06:55 Eosinophils % 0.9 04/28/18 06:55 Basophils % 0.2 04/28/18 06:55 Myelocytes % 2.0 % 04/27/18 07:11 Absolute Neutrophils 11.57 k/cumm (1.2-6.7) H 04/28/18 06:55 Absolute Lymphocytes 0.50 k/cumm (1.2-3.4) L 04/28/18 06:55 Absolute Monocytes 0.70 k/cumm (0.11-0.7) 04/28/18 06:55 Absolute Eosinophils 0.12 k/cumm (0.0-0.7) 04/28/18 06:55 Absolute Basophils 0.03 k/cumm (0.0-0.2) 04/28/18 06:55 Nucleated RBCs 1 /100WBC 04/26/18 07:30 Differential Comment Manual differential 04/27/18 07:11 RBC Morphology See below 04/27/18 07:11 Polychromasia Present 04/27/18 07:11 Hypochromasia 3+ 04/27/18 07:11 Poikilocytosis 2+ 04/27/18 07:11 Basophilic Stippling Present 04/27/18 07:11 Anisocytosis 2+ 04/27/18 07:11 Microcytosis 3+ 04/27/18 07:11 Ovalocytes 2+ 04/27/18 07:11 Sahtya Cells 2+ 04/26/18 07:30 Acanthocytes (Spur) 1+ 04/26/18 07:30 PT 9.6 sec (9.3-11.0) 04/26/18 07:30 INR 1.0 (0.9-1.1) 04/26/18 07:30 Sample Site Left radial 04/27/18 13:00 pCO2 44 mmHg (34-47) 04/27/18 13:00 pO2 62 mmHg (83-108) L 04/27/18 13:00 O2 Saturation 93 % (94-98) L 04/27/18 13:00 ABG pH 7.36 (7.35-7.45) 04/27/18 13:00 ABG HCO3 24 mmol/L (22-28) 04/27/18 13:00 ABG Total CO2 23 mmol/L (22-29) 04/27/18 13:00 ABG Base Excess -1.1 mmol/L (-3-3) 04/27/18 13:00 VBG pH 7.34 (7.32-7.43) 04/28/18 06:55 VBG pCO2 48 mm/Hg (34-47) H 04/28/18 06:55 VBG pO2 104 mm/Hg (28-44) H 04/28/18 06:55 VBG HCO3 26 mmol/L (22-28) 04/28/18 06:55 VBG Total CO2 24 mmol/L (22-29) 04/28/18 06:55 VBG O2 Saturation 99 % (70-80) H 04/28/18 06:55 VBG Base Excess 0.1 mmol/L (-3-3) 04/28/18 06:55 FiO2 21 % 04/27/18 13:00 Sodium 144 mmol/L (136-145) 04/28/18 06:55 Potassium 3.5 mmol/L (3.5-5.1) 04/28/18 06:55 Chloride 108 mmol/L (98-107) H 04/28/18 06:55 Carbon Dioxide 27.8 mmol/L (21.0-32.0) 04/28/18 06:55 Anion Gap 8.2 mmol/L (3-11) 04/28/18 06:55 BUN 47 mg/dL (7-18) H 04/28/18 06:55 Creatinine 2.17 mg/dL (0.70-1.30) H 04/28/18 06:55 Estimated GFR/1.73 m2 31.28 (mL/min/1.73m2) 04/28/18 06:55 Glucose 223 mg/dL (70-100) H 04/28/18 06:55 Lactate 0.5 mmol/l (0.6-1.4) L 04/26/18 07:30 Calcium 7.9 mg/dL (8.5-10.1) L 04/28/18 06:55 Magnesium 1.8 mg/dL (1.8-2.4) 04/28/18 06:55 Total Bilirubin 0.2 mg/dL (0.2-1.0) 04/26/18 07:30 AST 9 U/L (15-37) L 04/26/18 07:30 ALT 15 U/L (12-78) 04/26/18 07:30 Alkaline Phosphatase 145 U/L (46-116) H 04/26/18 07:30 Ammonia 24 umol/L (11-32) 04/25/18 20:43 Troponin I 0.06 ng/mL (0.00-0.06) 04/26/18 07:30 C-Reactive Protein 3.07 mg/dL (0.0-0.3) H 04/28/18 06:55 Total Protein 6.1 g/dL (6.4-8.2) L 04/26/18 07:30 Albumin 2.5 g/dL (3.4-5.0) L 04/26/18 07:30 TSH 0.37 uIU/mL (0.358-3.74) 04/26/18 07:30 Urine Color Yellow (Yellow) 04/26/18 11:15 Urine Clarity Clear 04/26/18 11:15 Urine pH 6.0 (5-8) 04/26/18 11:15 Ur Specific Oley 1.015 (1.005-1.025) 04/26/18 11:15 Urine Protein 100 mg/dL (Negative) H 04/26/18 11:15 Urine Ketones Negative mg/dL (Negative) 04/26/18 11:15 Urine Blood Moderate (Negative) H 04/26/18 11:15 Urine Nitrite Negative (Negative) 04/26/18 11:15 Urine Bilirubin Negative (Negative) 04/26/18 11:15 Urine Urobilinogen 0.2 EU/dL (Up TO 0.2) 04/26/18 11:15 Ur Leukocyte Esterase Small (Negative) H 04/26/18 11:15 Urine RBC Not Applicable 04/26/18 11:15 Urine WBC >50 HPF (0-5) 04/26/18 11:15 Ur Epithelial Cells Not Applicable 04/26/18 11:15 Urine Crystals Not Applicable 04/26/18 11:15 Urine Bacteria Not Applicable 04/26/18 11:15 Urine Casts 0-2 coarse granular LPF (Negative) 04/26/18 01:15 Urine Mucus Not Applicable 04/26/18 11:15 Urine Other Few yeast (Negative) 04/26/18 11:15 Ur Culture Indicated? Yes 04/26/18 11:15 Urine Glucose Negative mg/dL (Negative) 04/26/18 11:15 Acetaminophen 5 ug/mL (10-30) L 04/25/18 20:43 Ethyl Alcohol < 3.0 mg/dL (<3) 04/25/18 20:43 C.difficile Tox Ab Neut Cancelled 04/26/18 10:13 WBC scan: done, results pending Echo ordered
--- NOTE | 2018-04-28 17:59 | DI.VRAD_ITS ---
EXAM: NM Radiopharmaceutical Localization of Inflammatory Process, Whole Body EXAM DATE/TIME: 04/28/2018 5:23 PM CLINICAL HISTORY: 58 years old, male; Signs and symptoms; Symptoms: Bacteremia, suspicious for seeding; Patient HX: Right elbow fracture with surgery may 2017 TECHNIQUE: Radiopharmaceutical localization of inflammatory process, whole body. Whole body static imaging in the frontal planes from the head to the feet, 24 hours after radiotracer administration was performed. COMPARISON: No relevant prior studies available. FINDINGS: Technetium labeled white blood cell scan with images obtained at 1 hour and 3 hours following radiopharmaceutical administration are submitted. Normal distribution and uptake of radiotracer is present within the spleen and liver. No abnormal increased radiotracer uptake is identified. IMPRESSION: No abnormal increased tracer uptake. Dictated and Authenticated by: Benjy Santamaria MD. Ordering:LACEY Francois MD
[2018-04-28 19:01] LABS: Vancomycin, Trough 23.3 ug/mL (10.0-20.0)
[2018-04-28] MEDS: VANCOMYCIN 1,250 MG in Normal Saline 250 ML 166.667 MG IVPB (20:43)
[2018-04-28] MEDS: Water,Injection,Bacteriostatic 30 ML VIAL (21:01)
[2018-04-29] VITALS (21 sets, daily range): BP systolic 133–177; BP diastolic 70–84; PULSE 52–101; RESP 14–24; TEMP 36.4–37; O2SAT 75–99
[2018-04-29] MEDS: Hydrocortisone SOD SUC. 100 MG VIAL 50 MG IVP ×3 (05:32→19:24)
[2018-04-29] MEDS: Levothyroxine 75 MCG TAB 37.5 MCG PO (05:33)
[2018-04-29 07:00] LABS: Abs Immature Grans 0.15 k/cumm (0.0-0.09); Absolute Basophil Count 0.01 k/cumm (0.0-0.2); Absolute Eosinophil Count 0.17 k/cumm (0.0-0.7); Absolute Lymphocyte Count 0.86 k/cumm (1.2-3.4); Absolute Monocyte Count 0.55 k/cumm (0.11-0.7); Absolute Neutrophil Count 8.77 k/cumm (1.2-6.7); Basophils % 0.1; Eosinophils % 1.6; HCT 32.1 % (40.0-50.0); HGB 10.1 g/dL (13.5-17.5); Immature Grans % 1.4; Lymphocytes % 8.2; Mean Corp. HGB Concentration 31.5 g/dL (32.0-36.0); Mean Corpuscular Hemoglobin 24.5 pg (27.0-33.0); Mean Corpuscular Volume 77.9 fL (80-95); Mean Platelet Volume 10.2 fL (8.0-11.0); Monocytes % 5.2; Neutrophils % 83.5; Platelet Count 278 x1000/uL (130-400); RBC 4.12 m/cumm (4.50-6.00); RBC Distribution Width 18.4 % (11.8-14.1); White Blood Cell Count 10.51 k/cumm (4.4-10.8)
[2018-04-29 07:20] LABS: Anisocytosis 2+; Basophilic Stippling Present; Diff Comment RBC Morph Reviewed; Hypochromasia 2+; Microcytosis 2+; Ovalocytes 2+; Polychromasia Present
[2018-04-29 07:24] LABS: Anion Gap 7.4 mmol/L (3-11); BUN 44 mg/dL (7-18); C-Reactive Protein 1.63 mg/dL (0.0-0.3); CO2 27.6 mmol/L (21.0-32.0); CREATININE 1.84 mg/dL (0.70-1.30); Calcium 8.5 mg/dL (8.5-10.1); Chloride 108 mmol/L (98-107); Estimated GFR 37.84 (mL/min/1.73m2); Glucose 193 mg/dL (70-100); Potassium 3.6 mmol/L (3.5-5.1); Sodium 143 mmol/L (136-145)
[2018-04-29 07:43] LABS: Poikilocytes 2+
[2018-04-29] MEDS: Normal Saline Flush 10 ML SYR IVP ×4 (09:01→22:37)
[2018-04-29] MEDS: Lactobacillus Acidophilus CAP 1 CAP PO ×3 (09:03→19:24)
[2018-04-29] MEDS: Terazosin 2 MG CAP 4 MG PO ×2 (09:03→19:24)
[2018-04-29] MEDS: carBAMazepine 100 MG CHEW PO ×3 (09:03→19:24)
[2018-04-29] MEDS: Gabapentin 300 MG CAP PO ×3 (09:03→19:24)
[2018-04-29] MEDS: Magnesium Chloride 64 MG TABCR PO ×2 (09:03→19:24)
[2018-04-29] MEDS: Cyanocobalamin 500 MCG TAB 1000 MCG PO (09:04)
[2018-04-29] MEDS: amLODIPine 5 MG TAB 10 MG PO (09:04)
[2018-04-29] MEDS: Aspirin E.C. 81 MG TABEC PO ×2 (09:04→19:25)
[2018-04-29] MEDS: Multivitamin TAB 1 TAB PO (09:04)
[2018-04-29] MEDS: hydrALAZINE 10 MG TAB PO ×3 (09:06→19:24)
[2018-04-29] MEDS: cloNIDine 0.1 MG TAB 0.3 MG PO ×3 (09:06→19:24)
[2018-04-29] MEDS: Metoprolol CR 25 MG TABCR PO (09:06)
[2018-04-29] MEDS: Folic Acid 1 MG TAB PO (09:06)
[2018-04-29] MEDS: Venlafaxine 37.5 MG CAPCR 75 MG PO (09:07)
[2018-04-29] MEDS: Furosemide 20 MG/2 ML VIAL IVP ×2 (09:07→16:45)
[2018-04-29] MEDS: Ferrous Sulfate 325 MG TAB PO ×2 (09:07→19:25)
[2018-04-29] MEDS: Ascorbic Acid 500 MG TAB PO ×2 (09:07→19:25)
[2018-04-29] MEDS: Heparin 5,000 UNITS/ML VIAL 5000 UNITS SC ×2 (09:07→19:24)
[2018-04-29] MEDS: Omeprazole 20 MG CAPCR PO (09:07)
[2018-04-29] MEDS: Insulin Aspart 300 UNITS/3 ML PEN SC ×7 (09:08→22:37)
[2018-04-29] MEDS: Insulin Glargine 300 UNITS/3 ML PEN 60 UNITS SC (09:11)
--- NOTE | 2018-04-29 09:45 | PDOC.CMPRO ---
- If Service Date Differs Date of service: 04/29/18 Time of Service: 09:45 Care Management Progress Note S/O: Brendan remains in the ICU as a med/surg overflow at this time. He continues on telemetry. Brendan will require IV antibiotics, unsure as to duration and frequency at this time. A: 58 year old male admitted to [facility] 04/26/18 for UTI P: Brendan will return to [facility] once medically cleared. He will transport via [facility] Van when ready.
--- NOTE | 2018-04-29 09:59 | CMPROGNOTE_ITS ---
- If Service Date Differs Date of service: 04/29/18 Time of Service: 09:45 Care Management Progress Note S/O: Brendan remains in the ICU as a med/surg overflow at this time. He continues on telemetry. Brendan will require IV antibiotics, unsure as to duration and frequency at this time. A: 58 year old male admitted to [facility] 04/26/18 for UTI P: Brendan will return to [facility] once medically cleared. He will transport via [facility] W[facility]C Van when ready.
--- NOTE | 2018-04-29 10:40 | MERGE_ITS ---
*[facility]* *[facility]* [address] [place] [address] Date of study: 04/29/2018 Transthoracic Echocardiography M-mode, complete 2D, complete spectral Doppler, and color Doppler *STUDY CONCLUSIONS* Impressions: There are no typical features of vegetative endocarditis. Consider transesophageal echocardiography, if clinically indicated. Summary: 1. Left ventricle: The cavity size was normal. Wall thickness was increased in a pattern of moderate LVH. Systolic function was normal. The estimated ejection fraction was 60-65%. Wall motion was normal; there were no regional wall motion abnormalities. Findings consistent with diastolic dysfunction. 2. Mitral valve: Structurally normal valve. There was mild regurgitation. 3. Left atrium: The atrium was mildly dilated. 4. Right ventricle: The cavity size was normal. Wall thickness was normal. Systolic function was normal. 5. Pulmonary arteries: Pulmonary systolic pressure was increased, in the range of 35mm Hg to 40mm Hg. *PATIENT PRESENTATION* Height: 185.4cm ((73in) ) S/D Pressure: 170 / 77 Weight: 110.2kg ((242.5lb) ) BSA: 2.41m^2 Test start time: 10:40 AM. Test stop time: 11:40 AM. CONSULTING Anne Horowitz PERFORMING Unknown PERFORMING [facility] [employer]CRE[employer] MEASURER Rosangela Mo RT (R)(CT), [facility] ORDERING Priscila Canela REFERRING Priscila Canela *PROCEDURE DATA* Procedure information: The patient was identified by two identifiers. This study was interpreted by [facility]. Pertinent images and digital data are archived for permanent storage and are available for subsequent review. Comparison was made to the study of 03/16/2018. Study status: Routine. Transthoracic echocardiography. M-mode, complete 2D, complete spectral Doppler, and color Doppler. A Transthoracic Echocardiogram was performed. Scanning was performed from the parasternal, apical, subcostal, and suprasternal notch acoustic windows. Images were obtained using an [id number] cardiac ultrasound machine. Image quality was adequate. Study completion: The patient tolerated the procedure well. There were no complications. History: PMH: Suspected endocarditis. *CARDIAC ANATOMY* Left ventricle: The cavity size was normal. Wall thickness was increased in a pattern of moderate LVH. Systolic function was normal. The estimated ejection fraction was 60-65%. Wall motion was normal; there were no regional wall motion abnormalities. Findings consistent with diastolic dysfunction. Aortic valve: Trileaflet; normal thickness leaflets. Mobility was not restricted. Doppler: Transvalvular velocity was within the normal range. There was no stenosis. There was no significant regurgitation. VTI ratio of LVOT to aortic valve: 0.87. Valve area (VTI): 2.9cm^2. Indexed valve area (VTI): 1.2cm^2/m^2. Peak velocity ratio of LVOT to aortic valve: 0.64. Valve area (Vmax): 2.2cm^2. Indexed valve area (Vmax): 0.9cm^2/m^2. Mean velocity ratio of LVOT to aortic valve: 0.75. Valve area (Vmean): 2.5cm^2. Indexed valve area (Vmean): 1.1cm^2/m^2. Mean gradient (S): 10.6mm Hg. Peak gradient (S): 23mm Hg. Aorta: Aortic root: The aortic root was normal in size. Mitral valve: Structurally normal valve. Mobility was not restricted. Doppler: Transvalvular velocity was within the normal range. There was no evidence for stenosis. There was mild regurgitation. Valve area by pressure half-time: 3.2cm^2. Indexed valve area by pressure half-time: 1.3cm^2/m^2. Peak gradient (D): 3mm Hg. Left atrium: The atrium was mildly dilated. Right ventricle: The cavity size was normal. Wall thickness was normal. Systolic function was normal. Pulmonic valve: Structurally normal valve. Doppler: Transvalvular velocity was within the normal range. There was no evidence for stenosis. There was no significant regurgitation. Tricuspid valve: Structurally normal valve. Doppler: Transvalvular velocity was within the normal range. There was no evidence for stenosis. There was no significant regurgitation. Pulmonary artery: Pulmonary systolic pressure was increased, in the range of 35mm Hg to 40mm Hg. Right atrium: The atrium was normal in size. Pericardium: There was no pericardial effusion. Systemic veins: Inferior vena cava: Well visualized. The vessel was patent and normal in size. The respirophasic diameter changes were in the normal range (greater than or equal to 50%). Baseline ECG: Normal sinus rhythm. Measurements Left ventricle Value 03/16/2018 Reference LV ID, ED, PLAX 5.0 cm 5.3 3.5 - 6.0 LV ID, ES, PLAX 3.4 cm 3.6 2.1 - 4.0 LV PW thickness, ED, PLAX 1.5 cm 1.4 LV end-diastolic volume, 134 ml 106 1-p A2C LV ejection fraction, 1-p 70 % 55 A2C LV end-diastolic volume, 141 ml 119 1-p A4C LV ejection fraction, 1-p 59 % 63 A4C LV e', lateral 0.084 m/sec 0.099 LV E/e', lateral 10 10 LV e', medial 0.078 m/sec 0.086 LV E/e', medial 11 12 LV e', average 0.081 m/sec 0.093 LV E/e', average 11 11 Ventricular septum Value 03/16/2018 Reference IVS thickness, ED, PLAX 1.6 cm 1.4 LVOT Value 03/16/2018 Reference LVOT ID, A-P 2.1 cm 2.1 LVOT area 3.4 cm^2 3.4 LVOT peak velocity, S 1.53 m/sec 1.58 LVOT mean velocity, S 1.12 m/sec 1.09 LVOT VTI, S 39.0 cm 33.6 LVOT peak gradient, S 9.4 mm Hg 10 LVOT mean gradient, S 5.7 mm Hg 5.4 Stroke volume (SV), LVOT 132 ml 116 DP Stroke index (SV/bsa), 55 ml/m^2 49 LVOT DP Aortic valve Value 03/16/2018 Reference Aortic valve peak 2.4 m/sec 2.4 velocity, S Aortic valve mean 1.5 m/sec 1.78 velocity, S Aortic valve VTI, S 45.0 cm 47.0 Aortic mean gradient, S 10.6 mm Hg 13.9 Aortic peak gradient, S 23 mm Hg 23.9 VTI ratio, LVOT/AV 0.87 0.71 Aortic valve area, VTI 2.9 cm^2 2.5 Velocity ratio, peak, 0.64 0.65 LVOT/AV Aortic valve area, peak 2.2 cm^2 2.2 velocity Velocity ratio, mean, 0.75 0.61 LVOT/AV Aortic valve area, mean 2.5 cm^2 2.1 velocity Aortic valve area/bsa, 1.1 cm^2/m^2 0.9 mean velocity Aorta Value 03/16/2018 Reference Aortic root ID, ED 3.5 cm 3.6 Ascending aorta ID, A-P, S 3.3 cm 3.3 Left atrium Value 03/16/2018 Reference LA ID, A-P, ES 4.1 cm 4.0 LA ID/bsa, A-P 1.7 cm/m^2 1.7 <=2.2 LA area, ES, A4C (H) 26.6 cm^2 23.6 8.8 - 23.4 LA area, ES, A2C 28 cm^2 LA volume/bsa, ES, 1-p A4C 44 ml/m^2 34 LA volume, ES, 2-p 99 ml LA volume/bsa, ES, 2-p 41 ml/m^2 LA/aortic root ratio 1.16 1.1 Mitral valve Value 03/16/2018 Reference Mitral E-wave peak 0.87 m/sec 1.04 velocity Mitral A-wave peak 0.88 m/sec 0.69 velocity Mitral deceleration time (H) 234 ms 192 150 - 230 Mitral pressure half-time 68 ms 56 Mitral peak gradient, D 3 mm Hg 4.3 Mitral E/A ratio, peak 0.99 1.5 Mitral valve area, PHT, DP 3.2 cm^2 3.9 Tricuspid valve Value 03/16/2018 Reference Tricuspid regurg peak 2.9 m/sec 4.2 velocity Tricuspid peak RV-RA 34.7 mm Hg 70.7 gradient Right atrium Value 03/16/2018 Reference RA area, ES, A4C (H) 20.3 cm^2 21.5 8.3 - 19.5 Legend: (L) and (H) jamie values outside specified reference range. I have personally reviewed the images and have reviewed and edited the reported findings. Electronically signed by Serg Bill 04/29/2018 12:34
--- NOTE | 2018-04-29 10:46 | OT.INNT ---
Date of service: 04/29/18 Time of Service: 10:15 Occupational Therapy Notes 04/29/18 OT went to see pt, nursing reports that pt is going down to have tests performed. OT will check in with pt tomorrow. Suzanne Javier OTR/[facility]
[2018-04-29] MEDS: Ketoconazole 2% CREAM 15 GM TUBE TP (14:14)
--- NOTE | 2018-04-29 15:19 | IN_ITS ---
Date of service: 04/29/18 Time of Service: 14:51 PT Notes Inpatient Physical Therapy Evaluation Date: 04/29/2018 Referring Doctor: Jarad Canela MD PT Orders: PT CONSULT: Eval and treat Precautions: Falls, Standard, Contact and Droplet. Patient Profile/Admitting Diagnosis: Pt is a 58 year old male who has had multiple re-admissions to this hospital from [facility] since October 2017. He was admitted through the ER on 04/26/18 for a urinary tract infection. PMHX: Diabetic neuropathy, diabetic foot ulcers, rheumatoid arthritis, osteoarthritis bilateral knees, sacral decubitus ulcer, acute on chronic renal insufficiency, coronary artery disease, Crohn's disease, s/p colectomy, anemia, urinary tract infection, dyslipidemia, hypoandrogenism, cholelithiasis, hypertension, bipolar Disorder, chronic back pain, lower extremity edema, obesity, diabetes mellitus, MRSA blood and urine, and adrenal insufficiency. Social History/Home Situation: Patient is a resident of the [facility]. Per his report he walks short distances only, he estimates approximately 10 steps with use of wheeled walker. He does not manage stairs. Equipment Owned/DME: Wheeled walker, long-term care facility resident Subjective: Patient is met sitting on chair. He is agreeable to a PT evaluation. Objective: General Observation: Sitting on chair, telemetry, IV left UE, and ileostomy in place. Mental Status: A and O x3 Pain: 0/10 ROM: Right Upper Extremity: Shoulder flexion 70 degrees. Elbow motion is limited to 100 degrees flexion, lacking at least 20 degrees of terminal extension. Good functional opening of the hand. Left Upper Extremity: Shoulder flexion 80 degrees. Elbow motion is within functional limits. Good functional opening of the hand. Right Lower Extremity: Patient has approximately 15 degree knee flexion contracture. Demonstrates ankle dorsiflexion to 5 degrees. Left Lower Extremity: Patient has approximately 20 degree knee flexion contracture. Demonstrates ankle dorsiflexion to 5 degrees. Strength: Right Upper Extremity: Shoulder flexion 2-/5. Biceps 2-/5. Triceps 3+/5. Metal Sheet Roller Operator is weak. Left Upper Extremity: Shoulder flexion 3-/5. Biceps 3-/5. Triceps 3+/5. Metal Sheet Roller Operator is weak. Right Lower Extremity: Hip flexion 3-/5. Quads 3-/5. Hamstrings 3-/5. Ankle dorsiflexors 2-/5. Left Lower Extremity: Hip flexion 3-/5. Quads 3-/5. Hamstrings 3-/5. Ankle dorsiflexiors 2-/5. Bed Mobility/Transfers: Supine to sit: Mod assist with head of bed at 30 degrees Sit to stand: Max assist with FWW Stand to sit: Max assist with FWW Bed to chair: Max assist with FWW Gait: Refused due to fatigue Balance: Static Sitting: Good Dynamic Sitting: Good Static Standing: Fair-. able to tolerate 43 seconds of static standing while holding onto FWW with mod A Dynamic Standing: Poor Special Tests: Mobility Limitations Standardized Measure [facility] AM-PAC 6 clicks Basic Mobility Inpatient Short Form: Raw Score: 10 CMS Score: 77% deficit Informed Consent/Education: Patient instructed in purpose of PT consult and plan of care. Assessment: Patient is a 58 year old male referred to physical therapy services with the diagnosis of urinary tract infection, weakness, and functional decline. Patient presents with clinical signs and symptoms consistent with reduced mobility related to acute medical issues. Patient does have chronic mobility deficits, and resides in a long-term care facility, where he requires assistance with all ambulation and self-care. PT goals will be targeted at maximizing patient's mobility and strength to allow for safe transition back to long-term care facility. He currently demonstrates the following impairment level findings: 1. Decreased lower extremity strength 2. Decreased upper extremity strength 3. Decreased activity tolerance 4. Decreased range of motion bilateral knees and hands 5. Decreased balance skills Impairments are contributing to the following functional limitations: 1. Unable to perform ambulation 2. Patient requiring assistance with bed mobility 3. Decreased activity tolerance 4. Decreased safety with transfers 5. Dependence with transfer task performance Patient is assessed as High 63208 complexity based on the following: History: Reduced mobility due to weakness, balance issues related to UTI recurrence and 57-year-old male with complicated medical history and gradual decline in independence and mobility. Patient has been residing in a long-term care facility for the past 5 years, and demonstrates limited mobility in that setting. He also struggles with multiple areas of joint pain related to RA as well as with history of significant cardiac and GI issues as noted above under past medical history. Examination: Functional limitations as noted above Presentation: Unstable Decision Making: High complexity Goals: Goals X1 week 1. Supine-Sit independent 2. Sit-Supine independent 3. Sit-Stand CG with FWW 4. Stand-Sit CG FWW 5. Bed-Chair min assist with WW 6. Chair-Bed min assist with WW 7. Gait: min A for at least 15' with WW Plan of Care/Treatment Plan: 1-2x/day, 7 days/week x 1 week. Plan of care has been reviewed with the ANTIQUE JEWELRY REPAIRER providing the service under Physical Therapy direction. Initiate Physical Therapy intervention for strengthening, bed mobility, transfers, gait, balance training, use of assistive device. DISCHARGE RECOMMENDATIONS: Return to the [facility] with previous equipment in place. The 26 TREATMENT CODE/TIME: 26 minutes (16810) Jean Gamez, PT, DPT, CLT [facility]
--- NOTE | 2018-04-29 19:10 | W.PM.PROGNOT ---
Date of Service Date of service: 04/29/18 Time of Service: 15:00 Assessment and Plan (1) Sepsis: Current visit: Yes Status: Acute Blood cultures done on admission are positive for MRSA. Repeat cultures on 04/27/18 show NGTD x 48 hrs. TTE without evidence of endocarditis. We are considering KELLEE, but he is a poor candidate for this study. Urine C&S is reported to have yeast. WBC scan is actually negative, so there is no evidence of infection in the R elbow hardware. Continue vancomycin. Insert PICC line tomorrow. (2) Metabolic acidosis: Current visit: No Status: Acute Much improved and stable; likely due to acute on chronic adrenal insuffiency. Continue steroid taper, abx. ABG corrected. (3) UTI (urinary tract infection): Current visit: Yes Status: Acute Present on admission, culture mixed. As above. Downing d/c'ed - undergoing voiding trial (4) Insufficiency, adrenal: Current visit: Yes Status: Acute As above. Continue hydrocortisone 50 mg IV Q 8hrs (5) Toxic metabolic encephalopathy: Current visit: No Status: Resolved Resolved; Due to combination of sepsis, adrenal insufficiency and metabolic acidosis. Monitor as above conditions are getting addressed. (6) Pulmonary hypertension: Current visit: No Status: Chronic Carefully monitor volume status. (7) Chronic cholecystitis: Current visit: No Status: Acute Previously thought to be a poor surgical candidate. Will need to follow up with [facility] general surgery. Cholecystostomy drain is patent/draining. Previously re-evaluated by IR at [facility] and felt to be expected to be contaminated as it is open to the GI tract. (8) Hyperkalemia: Current visit: No Status: Resolved In setting of adrenal insufficiency and metabolic acidosis. Monitor. (9) Right elbow pain: Current visit: Yes Status: Acute As above. Improved. No evidence of abscess on WBC scan. (10) CKD (chronic kidney disease): Current visit: No Status: Chronic At baseline. Monitor Cr while diuresing, but no further workup at this time. 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 Has previously met with palliative care and maintained same decision. Continues to require hospitalization while IV steroids are being tapered to acceptable PO dose. While the patient's length of stay is now 3 midnights, He continues to require inpatient hospitalization and transfer to a tertiary care facility would not provide any additional clinical benefit as all of the services he requires he can receive here, at [facility]. He is expected to return to the [facility] with a PICC line and purchasing/receiving antibiotics. (13) DVT prophylaxis: Current visit: Yes Status: Acute SQ heparin as no further bleeding reported Continue TEDs and SCD's Subjective Patient reports: no new complaints Interval history since last seen: Feels better. States he is able to move his R elbow without much pain to a certain point. He denies dizziness, chest pain, shortness of breath, cough, nausea, vomiting. Exam Narrative Exam Narrative: General: middle aged male, Continues to look better. HEENT: EOMI, MMM, face edematous/Cushinoid Heart: RRR, + NUVIA Lungs: CTAB/diminished ABdomen: soft, nontender, nondistended; cholecystostomy and ileostomy in place Extremities: 1+ BLE edema with chronic venous stasis dermatitis; R elbow appears swollen, some ROM, no obvious erythema/drainage/induration Objective Objective Clinical Data: Abnormal lab results 04/29/18 04/29/18 Range/Units 06:40 06:40 RBC 4.12 L (4.50-6.00) m/cumm Hgb 10.1 L (13.5-17.5) g/dL Hct 32.1 L (40.0-50.0) % MCV 77.9 L (80-95) fL MCH 24.5 L (27.0-33.0) pg MCHC 31.5 L (32.0-36.0) g/dL RDW 18.4 H (11.8-14.1) % Absolute Neutrophils 8.77 H (1.2-6.7) k/cumm Absolute Lymphocytes 0.86 L (1.2-3.4) k/cumm Chloride 108 H (98-107) mmol/L BUN 44 H (7-18) mg/dL Creatinine 1.84 H (0.70-1.30) mg/dL Glucose 193 H (70-100) mg/dL C-Reactive Protein 1.63 H (0.0-0.3) mg/dL Vital Signs Temperature 37.0 C 04/29/18 18:51 Temperature Source Temporal Artery Scan 04/29/18 18:51 Pulse 61 04/29/18 16:56 Pulse Rhythm Regular 04/29/18 09:00 Pulse 63 04/29/18 10:00 Respiratory Rate 24 04/29/18 12:35 Respiratory Effort 04/29/18 09:00 Respiratory Depth Normal 04/29/18 09:00 Respiratory Pattern Normal 04/29/18 09:00 Blood Pressure 160/84 H 04/29/18 16:56 Blood Pressure Mean 101 04/29/18 16:56 Blood Pressure Position Supine 04/29/18 00:05 Pulse Oximetry 97 04/29/18 16:56 Oxygen Delivery Method Room Air 04/29/18 12:35 Oxygen Flow Rate 0 04/29/18 12:35 Pain Level 0 04/29/18 12:35 Intake & Output 04/28/18 04/29/18 04/29/18 23:59 11:59 23:59 Intake Total 1300 / 4190 825 / 2355 1530 / 2355 Output Total 4890 / 7385 2200 / 3800 1600 / 3800 Balance -3590 / -3195 -1375 / -1445 -70 / -1445 Weight 105.5 kg Intake: IV 250 / 600 20 / 20 Oral 1050 / 3590 805 / 2245 1440 / 2245 Injectate 90 / 90 right abdomen 90 / 90 Output: Drainage 395 / 775 325 / 400 75 / 400 right abdomen 395 / 775 325 / 400 75 / 400 Urine 3080 / 4830 975 / 1875 900 / 1875 Stool 1415 / 1780 900 / 1525 625 / 1525 Other: Urine Color Yellow Yellow Yellow Straw Straw Straw Urine Appearance Clear Clear Clear Sediment Comment Downing intact and draining clear yellow urine with sediment. Downing intact and draining clear yellow urine with sediment. Downing removed without problems. Will continue to monitor voiding. Stool Occult Blood Negative Negative Negative Stool Size Moderate Large Moderate Stool Characteristics Soft Soft Soft Liquid Brown Brown Brown Voiding Methods Indwelling Catheter Laboratory Results WBC 10.51 k/cumm (4.4-10.8) 04/29/18 06:40 RBC 4.12 m/cumm (4.50-6.00) L 04/29/18 06:40 Hgb 10.1 g/dL (13.5-17.5) L 04/29/18 06:40 Hct 32.1 % (40.0-50.0) L 04/29/18 06:40 MCV 77.9 fL (80-95) L 04/29/18 06:40 MCH 24.5 pg (27.0-33.0) L 04/29/18 06:40 MCHC 31.5 g/dL (32.0-36.0) L 04/29/18 06:40 RDW 18.4 % (11.8-14.1) H 04/29/18 06:40 Plt Count 278 x1000/uL (130-400) 04/29/18 06:40 MPV 10.2 fL (8.0-11.0) 04/29/18 06:40 Immature Gran % 1.4 04/29/18 06:40 Neutrophils % 83.5 04/29/18 06:40 Band Neutrophils % 1.0 % 04/27/18 07:11 Lymphocytes % 8.2 04/29/18 06:40 Monocytes % 5.2 04/29/18 06:40 Eosinophils % 1.6 04/29/18 06:40 Basophils % 0.1 04/29/18 06:40 Myelocytes % 2.0 % 04/27/18 07:11 Absolute Neutrophils 8.77 k/cumm (1.2-6.7) H 04/29/18 06:40 Absolute Lymphocytes 0.86 k/cumm (1.2-3.4) L 04/29/18 06:40 Absolute Monocytes 0.55 k/cumm (0.11-0.7) 04/29/18 06:40 Absolute Eosinophils 0.17 k/cumm (0.0-0.7) 04/29/18 06:40 Absolute Basophils 0.01 k/cumm (0.0-0.2) 04/29/18 06:40 Nucleated RBCs 1 /100WBC 04/26/18 07:30 Differential Comment Rbc morph reviewed 04/29/18 06:40 RBC Morphology See below 04/29/18 06:40 Polychromasia Present 04/29/18 06:40 Hypochromasia 2+ 04/29/18 06:40 Poikilocytosis 2+ 04/29/18 06:40 Basophilic Stippling Present 04/29/18 06:40 Anisocytosis 2+ 04/29/18 06:40 Microcytosis 2+ 04/29/18 06:40 Ovalocytes 2+ 04/29/18 06:40 [place] Cells 2+ 04/26/18 07:30 Acanthocytes (Spur) 1+ 04/26/18 07:30 PT 9.6 sec (9.3-11.0) 04/26/18 07:30 INR 1.0 (0.9-1.1) 04/26/18 07:30 Sample Site Left radial 04/27/18 13:00 pCO2 44 mmHg (34-47) 04/27/18 13:00 pO2 62 mmHg (83-108) L 04/27/18 13:00 O2 Saturation 93 % (94-98) L 04/27/18 13:00 ABG pH 7.36 (7.35-7.45) 04/27/18 13:00 ABG HCO3 24 mmol/L (22-28) 04/27/18 13:00 ABG Total CO2 23 mmol/L (22-29) 04/27/18 13:00 ABG Base Excess -1.1 mmol/L (-3-3) 04/27/18 13:00 VBG pH 7.34 (7.32-7.43) 04/28/18 06:55 VBG pCO2 48 mm/Hg (34-47) H 04/28/18 06:55 VBG pO2 104 mm/Hg (28-44) H 04/28/18 06:55 VBG HCO3 26 mmol/L (22-28) 04/28/18 06:55 VBG Total CO2 24 mmol/L (22-29) 04/28/18 06:55 VBG O2 Saturation 99 % (70-80) H 04/28/18 06:55 VBG Base Excess 0.1 mmol/L (-3-3) 04/28/18 06:55 FiO2 21 % 04/27/18 13:00 Sodium 143 mmol/L (136-145) 04/29/18 06:40 Potassium 3.6 mmol/L (3.5-5.1) 04/29/18 06:40 Chloride 108 mmol/L (98-107) H 04/29/18 06:40 Carbon Dioxide 27.6 mmol/L (21.0-32.0) 04/29/18 06:40 Anion Gap 7.4 mmol/L (3-11) 04/29/18 06:40 BUN 44 mg/dL (7-18) H 04/29/18 06:40 Creatinine 1.84 mg/dL (0.70-1.30) H 04/29/18 06:40 Estimated GFR/1.73 m2 37.84 (mL/min/1.73m2) 04/29/18 06:40 Glucose 193 mg/dL (70-100) H 04/29/18 06:40 Lactate 0.5 mmol/l (0.6-1.4) L 04/26/18 07:30 Calcium 8.5 mg/dL (8.5-10.1) 04/29/18 06:40 Magnesium 2.0 mg/dL (1.8-2.4) 04/29/18 06:40 Total Bilirubin 0.2 mg/dL (0.2-1.0) 04/26/18 07:30 AST 9 U/L (15-37) L 04/26/18 07:30 ALT 15 U/L (12-78) 04/26/18 07:30 Alkaline Phosphatase 145 U/L (46-116) H 04/26/18 07:30 Ammonia 24 umol/L (11-32) 04/25/18 20:43 Troponin I 0.06 ng/mL (0.00-0.06) 04/26/18 07:30 C-Reactive Protein 1.63 mg/dL (0.0-0.3) H 04/29/18 06:40 Total Protein 6.1 g/dL (6.4-8.2) L 04/26/18 07:30 Albumin 2.5 g/dL (3.4-5.0) L 04/26/18 07:30 TSH 0.37 uIU/mL (0.358-3.74) 04/26/18 07:30 Urine Color Yellow (Yellow) 04/26/18 11:15 Urine Clarity Clear 04/26/18 11:15 Urine pH 6.0 (5-8) 04/26/18 11:15 Ur Specific [place] 1.015 (1.005-1.025) 04/26/18 11:15 Urine Protein 100 mg/dL (Negative) H 04/26/18 11:15 Urine Ketones Negative mg/dL (Negative) 04/26/18 11:15 Urine Blood Moderate (Negative) H 04/26/18 11:15 Urine Nitrite Negative (Negative) 04/26/18 11:15 Urine Bilirubin Negative (Negative) 04/26/18 11:15 Urine Urobilinogen 0.2 EU/dL (Up TO 0.2) 04/26/18 11:15 Ur Leukocyte Esterase Small (Negative) H 04/26/18 11:15 Urine RBC Not Applicable 04/26/18 11:15 Urine WBC >50 HPF (0-5) 04/26/18 11:15 Ur Epithelial Cells Not Applicable 04/26/18 11:15 Urine Crystals Not Applicable 04/26/18 11:15 Urine Bacteria Not Applicable 04/26/18 11:15 Urine Casts 0-2 coarse granular LPF (Negative) 04/26/18 01:15 Urine Mucus Not Applicable 04/26/18 11:15 Urine Other Few yeast (Negative) 04/26/18 11:15 Ur Culture Indicated? Yes 04/26/18 11:15 Urine Glucose Negative mg/dL (Negative) 04/26/18 11:15 Vancomycin Trough 23.3 ug/mL (10.0-20.0) H* 04/28/18 18:20 Acetaminophen 5 ug/mL (10-30) L 04/25/18 20:43 Ethyl Alcohol < 3.0 mg/dL (<3) 04/25/18 20:43 C.difficile Tox Ab Neut Cancelled 04/26/18 10:13 Echo: There are no typical features of vegetative endocarditis. Consider transesophageal echocardiography, if clinically indicated. Summary: 1. Left ventricle: The cavity size was normal. Wall thickness was increased in a pattern of moderate LVH. Systolic function was normal. The estimated ejection fraction was 60-65%. Wall motion was normal; there were no regional wall motion abnormalities. Findings consistent with diastolic dysfunction. 2. Mitral valve: Structurally normal valve. There was mild regurgitation. 3. Left atrium: The atrium was mildly dilated. 4. Right ventricle: The cavity size was normal. Wall thickness was normal. Systolic function was normal. 5. Pulmonary arteries: Pulmonary systolic pressure was increased, in the range of 35mm Hg to 40mm Hg.
[2018-04-29] MEDS: traZODone 50 MG TAB PO (22:36)
[2018-04-29] MEDS: Melatonin 3 MG TAB 9 MG PO (22:36)
[2018-04-29] MEDS: risperiDONE 1 MG TAB 3 MG PO (22:37)
--- NOTE | 2018-04-30 01:22 | NUR.NOTE ---
Nursing Note:At 21:05 hrs of 04/29/18, received from ICU staff, AO x 3. transferred to room 215 with the bed. Vital signs stable. Denied of pain. Cream was applied on his rashes and buttocks with reddened blanchable areas. Pt has negative verbal attitudes with staff, Needs attended and asleep, vital signs not taken at midnight.
[2018-04-30 03:08] VITALS: BP 154/78; PULSE 60; RESP 20; TEMP 36.4; O2SAT 92
[2018-04-30] MEDS: Normal Saline Flush 10 ML SYR IVP (03:26)
[2018-04-30] MEDS: Hydrocortisone SOD SUC. 100 MG VIAL 50 MG IVP ×2 (03:26→12:39)
[2018-04-30] MEDS: Levothyroxine 75 MCG TAB 37.5 MCG PO (05:44)
[2018-04-30 07:54] LABS: Abs Immature Grans 0.12 k/cumm (0.0-0.09); Absolute Basophil Count 0.01 k/cumm (0.0-0.2); Absolute Eosinophil Count 0.13 k/cumm (0.0-0.7); Absolute Lymphocyte Count 0.48 k/cumm (1.2-3.4); Absolute Monocyte Count 0.35 k/cumm (0.11-0.7); Absolute Neutrophil Count 9.49 k/cumm (1.2-6.7); Basophils % 0.1; Eosinophils % 1.2; HCT 33.7 % (40.0-50.0); HGB 10.3 g/dL (13.5-17.5); Immature Grans % 1.1; Lymphocytes % 4.5; Mean Corp. HGB Concentration 30.6 g/dL (32.0-36.0); Mean Corpuscular Volume 78.6 fL (80-95); Mean Platelet Volume 10.3 fL (8.0-11.0); Monocytes % 3.3; Neutrophils % 89.8; Platelet Count 301 x1000/uL (130-400); RBC 4.29 m/cumm (4.50-6.00); White Blood Cell Count 10.58 k/cumm (4.4-10.8)
[2018-04-30 07:59] VITALS: BP 153/78; PULSE 68; RESP 22; TEMP 36.8; O2SAT 93
[2018-04-30 07:59] LABS: Anion Gap 8.3 mmol/L (3-11); BUN 45 mg/dL (7-18); CO2 27.7 mmol/L (21.0-32.0); CREATININE 1.74 mg/dL (0.70-1.30); Calcium 8.7 mg/dL (8.5-10.1); Chloride 105 mmol/L (98-107); Estimated GFR 40.36 (mL/min/1.73m2); Glucose 197 mg/dL (70-100); Magnesium 2.1 mg/dL (1.8-2.4); Potassium 3.9 mmol/L (3.5-5.1); Sodium 141 mmol/L (136-145)
[2018-04-30 08:01] LABS: RBC Distribution Width 18.2 % (11.8-14.1)
[2018-04-30] MEDS: Cyanocobalamin 500 MCG TAB 1000 MCG PO (08:56)
[2018-04-30] MEDS: Omeprazole 20 MG CAPCR PO (08:57)
[2018-04-30] MEDS: Gabapentin 300 MG CAP PO ×3 (08:57→20:16)
[2018-04-30] MEDS: Venlafaxine 37.5 MG CAPCR 75 MG PO (08:57)
[2018-04-30] MEDS: Magnesium Chloride 64 MG TABCR PO ×2 (08:57→20:14)
[2018-04-30] MEDS: Ferrous Sulfate 325 MG TAB PO ×2 (08:57→20:16)
[2018-04-30] MEDS: Multivitamin TAB 1 TAB PO (08:57)
[2018-04-30] MEDS: Lactobacillus Acidophilus CAP 1 CAP PO ×3 (08:57→20:15)
[2018-04-30] MEDS: Ascorbic Acid 500 MG TAB PO ×2 (08:57→20:15)
[2018-04-30] MEDS: cloNIDine 0.1 MG TAB 0.3 MG PO ×3 (08:58→20:15)
[2018-04-30] MEDS: Metoprolol CR 25 MG TABCR PO (08:58)
[2018-04-30] MEDS: Terazosin 2 MG CAP 4 MG PO ×2 (08:58→20:14)
[2018-04-30] MEDS: carBAMazepine 100 MG CHEW PO ×3 (08:58→20:16)
[2018-04-30] MEDS: Folic Acid 1 MG TAB PO (08:58)
[2018-04-30] MEDS: amLODIPine 5 MG TAB 10 MG PO (08:58)
[2018-04-30] MEDS: Aspirin E.C. 81 MG TABEC PO ×2 (08:58→20:15)
[2018-04-30] MEDS: hydrALAZINE 10 MG TAB PO ×3 (08:58→20:15)
[2018-04-30] MEDS: Furosemide 20 MG/2 ML VIAL IVP ×2 (08:59→17:22)
[2018-04-30] MEDS: Heparin 5,000 UNITS/ML VIAL 5000 UNITS SC ×2 (09:00→20:16)
[2018-04-30] MEDS: Insulin Aspart 300 UNITS/3 ML PEN SC ×7 (09:01→21:16)
[2018-04-30] MEDS: Insulin Glargine 300 UNITS/3 ML PEN 60 UNITS SC (09:03)
--- NOTE | 2018-04-30 10:13 | PDOC.CMPRO ---
- If Service Date Differs Date of service: 04/30/18 Time of Service: 10:13 Care Management Progress Note S/O: Brendan is sitting up in bed this morning, pleasant and receptive to discussion. Brendan will have a PICC line inserted today as he will require IV antibiotics. The duration and frequency of antibiotics is unknown at this time. If QD [facility] would most likely be able to manage IV antibiotics. No change in DC plan. A: 58 year old male admitted to [facility] 04/26/18 for UTI P: Brendan will return to [facility] once medically cleared. He will transport via [facility] Van when ready.
--- NOTE | 2018-04-30 11:30 | OT.INTREAT ---
Date of service: 04/30/18 Time of Service: 09:10 Occupational Therapy Notes Occupational Therapy Inpatient Treatment Note Date: 04/30/18 PRECAUTIONS: Fall, precautions SUBJECTIVE: Pt was lying in bed when OT arrived. He was agreeable to OT session. OBJECTIVE: PAIN:Discomfort in (R) elbow. FUNCTIONAL MOBILITY Rolling L/R: S Supine-sit: S Sit-supine: S BATHING: Sitting in bed with max (A) set up Upper Body: Pt was able to (I) wash face and below elbows on (B) UE. was mod (A) for above elbows (B). Pt was able to wash (L) side of abdomen (I) and was max (A) (B) shoulders and (R) side of abdomen. Hair was max (A). Lower Body: Max (A) DRESSING: Sitting in bed Upper Extremity: Mod (A) [facility] gown. ASSESSMENT/PLAN: Pt was demonstrating increased (I) in bathing routine. He was receptive to performing his bathing routine and demonstrated increased (I) in ADLs. OT recommends that pt return to [facility] when medically cleared per MD. TREATMENT CODES/TIME: [id number], 34minutes (09:10) Suzanne Javier OTR/[facility]
--- NOTE | 2018-04-30 11:36 | OTTR_ITS ---
Date of service: 04/30/18 Time of Service: 09:10 Occupational Therapy Notes Occupational Therapy Inpatient Treatment Note Date: 04/30/18 PRECAUTIONS: Fall, precautions SUBJECTIVE: Pt was lying in bed when OT arrived. He was agreeable to OT session. OBJECTIVE: PAIN:Discomfort in (R) elbow. FUNCTIONAL MOBILITY Rolling L/R: S Supine-sit: S Sit-supine: S BATHING: Sitting in bed with max (A) set up Upper Body: Pt was able to (I) wash face and below elbows on (B) UE. was mod (A) for above elbows (B). Pt was able to wash (L) side of abdomen (I) and was max (A) (B) shoulders and (R) side of abdomen. Hair was max (A). Lower Body: Max (A) DRESSING: Sitting in bed Upper Extremity: Mod (A) [facility] gown. ASSESSMENT/PLAN: Pt was demonstrating increased (I) in bathing routine. He was receptive to performing his bathing routine and demonstrated increased (I) in ADLs. OT recommends that pt return to [facility] when medically cleared per MD. TREATMENT CODES/TIME: [id number], 34minutes (09:10) Suzanne Javier OTR/[facility]
[2018-04-30 12:25] VITALS: BP 147/72; PULSE 60; RESP 20; TEMP 36.8; O2SAT 94
--- NOTE | 2018-04-30 12:35 | PT.INTREAT ---
Date of service: 04/30/18 Time of Service: 12:35 PT Notes Inpatient Physical Therapy Treatment Note [facility] Date: 04/30/18 PRECAUTIONS: Fall, contact SUBJECTIVE: Brendan is in good spirits, stating I have been waiting for you to come in and work with me. OBJECTIVE: PAIN: No complaints of pain BED MOBILITY/TRANSFERS Supine-sit: Min A Sit-stand: SBA from bed; Mod A from low chair surface Stand-sit: SBA Bed-Chair: SBA Chair-bed: SBA GAIT Assistive Device: FWW Weight bearing: Full Assist: SBA Distance: 3' in a.m.; 10' in p.m. THEREX: Patient completed a lower extremity strengthening program, in a seated position, as per flow sheet. Patient also performed sit?to?stand exercise from elevated bed surface, with upper extremity support x5. ASSESSMENT: Patient tolerated session well without complaint. Patient was able to tolerate a slight progression in gait distance with FWW support and SBA. Patient would benefit from continued gait and transfer training as well as strengthening for improved mobility and improved ability to perform daily functional tasks at a more independent level. PLAN: Continue with PTs POC TREATMENT CODE/TIME: Session 1: 30 minutes; [id number], [id number] Session 2: 15 minutes; [id number]
[2018-04-30] MEDS: Ketoconazole 2% CREAM 15 GM TUBE TP (12:40)
--- NOTE | 2018-04-30 12:40 | PTTR_ITS ---
Date of service: 04/30/18 Time of Service: 12:35 PT Notes Inpatient Physical Therapy Treatment Note [facility] Date: 04/30/18 PRECAUTIONS: Fall, contact SUBJECTIVE: Brendan is in good spirits, stating I have been waiting for you to c ome in and work with me. OBJECTIVE: PAIN: No complaints of pain BED MOBILITY/TRANSFERS Supine-sit: Min A Sit-stand: SBA from bed; Mod A from low chair surface Stand-sit: SBA Bed-Chair: SBA Chair-bed: SBA GAIT Assistive Device: FWW Weight bearing: Full Assist: SBA Distance: 3' in a.m.; 10' in p.m. THEREX: Patient completed a lower extremity strengthening program, in a seated position, as per flow sheet. Patient also performed sit?to?stand exercise from elevated bed surface, with upper extremity support x5. ASSESSMENT: Patient tolerated session well without complaint. Patient was able to tolerate a slight progression in gait distance with FWW support and SBA. Patient would benefit from continued gait and transfer training as well as strengthening for improved mobility and improved ability to perform daily functional tasks at a more independent level. PLAN: Continue with PTs POC TREATMENT CODE/TIME: Session 1: 30 minutes; [id number], [id number] Session 2: 15 minutes; [id number]
--- NOTE | 2018-04-30 12:40 | PT.INTREAT ---
Date of service: 04/30/18 Time of Service: 12:41 PT Notes Inpatient Physical Therapy Treatment Note [facility] Date: 04/30/18 PRECAUTIONS: Fall SUBJECTIVE: Jerome reports that he is feeling better today, although he is not motivated to participate in PT without some encouragement. OBJECTIVE: PAIN: Patient complained of left lower extremity pain, hurts, same as always. BED MOBILITY/TRANSFERS Sit?supine: Min A Sit-stand: Min A x2 Stand-sit: Min A x2 Chair-bed: CGA x2 GAIT Assistive Device: FWW Weight bearing: Full Assist: CGA x2 Distance: 3' x2 in a.m.; 5' in p.m. THEREX: Patient completed an upper extremity and lower extremity strengthening program, in a seated position, as per flow sheet. ASSESSMENT: Patient tolerated session with complaint of increased fatigue. Patient would benefit from continued gait and transfer training as well as strengthening for improved mobility and improved ability to perform daily functional tasks at a more independent level. PLAN: Continue with PTs POC TREATMENT CODE/TIME: Session 1: 20 minutes; [id number], [id number] Session 2: 20 minutes; [id number]
--- NOTE | 2018-04-30 12:44 | PTTR_ITS ---
Date of service: 04/30/18 Time of Service: 12:41 PT Notes Inpatient Physical Therapy Treatment Note [facility] Date: 04/30/18 PRECAUTIONS: Fall SUBJECTIVE: Jerome reports that he is feeling better today, although he is not motivated to participate in PT without some encouragement. OBJECTIVE: PAIN: Patient complained of left lower extremity pain, hurts, same as always. BED MOBILITY/TRANSFERS Sit?supine: Min A Sit-stand: Min A x2 Stand-sit: Min A x2 Chair-bed: CGA x2 GAIT Assistive Device: FWW Weight bearing: Full Assist: CGA x2 Distance: 3' x2 in a.m.; 5' in p.m. THEREX: Patient completed an upper extremity and lower extremity strengthening program, in a seated position, as per flow sheet. ASSESSMENT: Patient tolerated session with complaint of increased fatigue. Patient would benefit from continued gait and transfer training as well as s trengthening for improved mobility and improved ability to perform daily functional tasks at a more independent level. PLAN: Continue with PTs POC TREATMENT CODE/TIME: Session 1: 20 minutes; 28975, 21376 Session 2: 20 minutes; [id number]
[2018-04-30 19:30] VITALS: BP 155/76; PULSE 66; RESP 20; TEMP 36.6; O2SAT 95
--- NOTE | 2018-04-30 19:42 | PGE_ITS ---
Date of Service Date of service: 04/30/18 Time of Service: 17:25 Assessment and Plan (1) Sepsis: Current visit: Yes Status: Acute Blood cultures done on admission are positive for MRSA. Repeat cultures on 04/27/18 show NGTD x 48 hrs. TTE without evidence of endocarditis. S/p PICC, on Vancomycin D4 since 1st negative blood culture. WBC scan is negative. Case discussed with Dr Mcintyre at [facility] ([facility]). He recommends getting a CT of the chest/abdomen/pelvis with contrast to r/o an abscess, even though the patient had a negative WBC scan due to its poor sensitivity. He also recommends a KELLEE - and if the patient is unable to get it, then treating him for 6 weeks as if he has endocarditis. If he is able to get it and it is negative, then 2 weeks of abx should be enough. He recommends considering switching to daptomycin, even though SHY of vancomycin is 1, as it appears to have failed after multiple courses of abx. Obtaining above CT tonight; Will consult cardiology for a KELLEE. (2) Metabolic acidosis: Current visit: No Status: Acute Much improved and stable; likely due to acute on chronic adrenal insuffiency. Continue steroid taper, abx. ABG corrected. (3) UTI (urinary tract infection): Current visit: Yes Status: Acute Present on admission, culture mixed. No longer has a ruiz (4) Insufficiency, adrenal: Current visit: Yes Status: Acute As above. Taper hydrocortisone to 25 mg IV q6 hrs. (5) Toxic metabolic encephalopathy: Current visit: No Status: Resolved Resolved; Due to combination of sepsis, adrenal insufficiency and metabolic acidosis. Monitor as above conditions are getting addressed. (6) Pulmonary hypertension: Current visit: No Status: Chronic Carefully monitor volume status. (7) Chronic cholecystitis: Current visit: No Status: Acute Previously thought to be a poor surgical candidate. Will need to [place] up [place] [facility] [place]. Cholecystostomy drain is patent/draining. Previously re-evaluated by IR [place] [facility] and felt to be expected to be contaminated as it is open to the GI tract. I have received the same opinion from Dr Chauhan at [facility] in our discussion today - no benefit in changing the drain. (8) Hyperkalemia: Current visit: No Status: Resolved In setting of adrenal insufficiency and metabolic acidosis. Monitor. (9) Right elbow pain: Current visit: Yes Status: Acute Consider obtaining CT and monitor CRP/clinically. Orthopedics feels the joint is not infected. (10) CKD (chronic kidney disease): Current visit: No Status: Chronic At baseline. Monitor Cr while diuresing, but no further workup at this time. 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 Has previously met with palliative care and maintained same decision. Continues to require hospitalization while IV steroids are being tapered to acceptable PO dose. While the patient's length of stay is now 3 midnights, He continues to require inpatient hospitalization and transfer to a tertiary care facility would not provide any additional clinical benefit as all of the services he requires he can receive here, at [facility]. He is expected to return to the [facility] with a PICC line and long term acute care registered nurse antibiotics. (13) DVT prophylaxis: Current visit: Yes Status: Acute SQ heparin as no further bleeding reported Continue TEDs and SCD's Subjective Interval history since last seen: Mr Corley complains of R shoulder and R elbow pain. This is the first time he reported R shoulder pain to me. Can I have some real pain pills, please? Denies dizziness, chest pain, shortness of breath, cough, nausea, vomiting. Exam Narrative Exam Narrative: General: middle aged male, Continues to look better, A&Ox3, had a very intelligent discussion with me about his further care; tuncal rash looks less pronounced HEENT: EOMI, MMM, face edematous/Cushinoid Heart: RRR, + NUVIA Lungs: CTAB/diminished ABdomen: soft, nontender, nondistended; cholecystostomy and ileostomy in place Extremities: 1+ BLE edema with chronic venous stasis dermatitis; R elbow appears swollen, no erythema. I do not see any evidence of redness or swelling in R shoulder. Objective Objective Clinical Data: Abnormal lab results 04/30/18 04/30/18 Range/Units 07:20 07:20 RBC 4.29 L (4.50-6.00) m/cumm Hgb 10.3 L (13.5-17.5) g/dL Hct 33.7 L (40.0-50.0) % MCV 78.6 L (80-95) fL MCH 24.0 L (27.0-33.0) pg MCHC 30.6 L (32.0-36.0) g/dL RDW 18.2 H (11.8-14.1) % Absolute Neutrophils 9.49 H (1.2-6.7) k/cumm Absolute Lymphocytes 0.48 L (1.2-3.4) k/cumm BUN 45 H (7-18) mg/dL Creatinine 1.74 H (0.70-1.30) mg/dL Glucose 197 H (70-100) mg/dL Vital Signs Temperature 36.8 C 04/30/18 12:25 Temperature Source Tympanic 04/30/18 12:25 Pulse 60 04/30/18 12:25 Pulse Rhythm Regular 04/30/18 17:10 Pulse 63 04/29/18 10:00 Respiratory Rate 20 04/30/18 12:25 Respiratory Effort Non-Labored 04/30/18 17:10 Respiratory Depth Normal 04/30/18 17:10 Respiratory Pattern Normal 04/30/18 17:10 Blood Pressure 147/72 H 04/30/18 12:25 Blood Pressure Mean 102 04/29/18 19:26 Blood Pressure Position Supine 04/29/18 00:05 Pulse Oximetry 94 L 04/30/18 12:25 Oxygen Delivery Method Room Air 04/30/18 12:25 Oxygen Flow Rate 0 04/30/18 12:25 Pain Level 0 04/29/18 21:12 Comment 04/29/18 21:38 Intake & Output 04/29/18 04/30/18 04/30/18 23:59 11:59 23:59 Intake Total 1530 / 2355 520 / 520 Output Total 1600 / 3800 1600 / 2450 850 / 2450 Balance -70 / -1445 -1080 / -1930 -850 / -1930 Weight 103.4 kg Intake: IV 270 / 270 Oral 1440 / 2245 250 / 250 Injectate 90 / 90 right abdomen 90 / 90 Output: Drainage 75 / 400 350 / 500 150 / 500 right abdomen 75 / 400 350 / 500 150 / 500 Urine 900 / 1875 550 / 1050 500 / 1050 Stool 625 / 1525 700 / 900 200 / 900 Other: Urine Color Yellow Yellow Yellow Straw Urine Appearance Clear Cloudy Cloudy Comment Ruiz removed without problems. Will continue to monitor voiding. Stool Occult Blood Negative Stool Size Moderate Stool Characteristics Soft Brown Voiding Methods Urinal Urinal Laboratory Results WBC 10.58 k/cumm (4.4-10.8) 04/30/18 07:20 RBC 4.29 m/cumm (4.50-6.00) L 04/30/18 07:20 Hgb 10.3 g/dL (13.5-17.5) L 04/30/18 07:20 Hct 33.7 % (40.0-50.0) L 04/30/18 07:20 MCV 78.6 fL (80-95) L 04/30/18 07:20 MCH 24.0 pg (27.0-33.0) L 04/30/18 07:20 MCHC 30.6 g/dL (32.0-36.0) L 04/30/18 07:20 RDW 18.2 % (11.8-14.1) H 04/30/18 07:20 Plt Count 301 x1000/uL (130-400) 04/30/18 07:20 MPV 10.3 fL (8.0-11.0) 04/30/18 07:20 Immature Gran % 1.1 04/30/18 07:20 Neutrophils % 89.8 04/30/18 07:20 Band Neutrophils % 1.0 % 04/27/18 07:11 Lymphocytes % 4.5 04/30/18 07:20 Monocytes % 3.3 04/30/18 07:20 Eosinophils % 1.2 04/30/18 07:20 Basophils % 0.1 04/30/18 07:20 Myelocytes % 2.0 % 04/27/18 07:11 Absolute Neutrophils 9.49 k/cumm (1.2-6.7) H 04/30/18 07:20 Absolute Lymphocytes 0.48 k/cumm (1.2-3.4) L 04/30/18 07:20 Absolute Monocytes 0.35 k/cumm (0.11-0.7) 04/30/18 07:20 Absolute Eosinophils 0.13 k/cumm (0.0-0.7) 04/30/18 07:20 Absolute Basophils 0.01 k/cumm (0.0-0.2) 04/30/18 07:20 Nucleated RBCs 1 /100WBC 04/26/18 07:30 Differential Comment Rbc morph reviewed 04/29/18 06:40 RBC Morphology See below 04/29/18 06:40 Polychromasia Present 04/29/18 06:40 Hypochromasia 2+ 04/29/18 06:40 Poikilocytosis 2+ 04/29/18 06:40 Basophilic Stippling Present 04/29/18 06:40 Anisocytosis 2+ 04/29/18 06:40 Microcytosis 2+ 04/29/18 06:40 Ovalocytes 2+ 04/29/18 06:40 Sathya Cells 2+ 04/26/18 07:30 Acanthocytes (Spur) 1+ 04/26/18 07:30 PT 9.6 sec (9.3-11.0) 04/26/18 07:30 INR 1.0 (0.9-1.1) 04/26/18 07:30 Sample Site Left radial 04/27/18 13:00 pCO2 44 mmHg (34-47) 04/27/18 13:00 pO2 62 mmHg (83-108) L 04/27/18 13:00 O2 Saturation 93 % (94-98) L 04/27/18 13:00 ABG pH 7.36 (7.35-7.45) 04/27/18 13:00 ABG HCO3 24 mmol/L (22-28) 04/27/18 13:00 ABG Total CO2 23 mmol/L (22-29) 04/27/18 13:00 ABG Base Excess -1.1 mmol/L (-3-3) 04/27/18 13:00 VBG pH 7.34 (7.32-7.43) 04/28/18 06:55 VBG pCO2 48 mm/Hg (34-47) H 04/28/18 06:55 VBG pO2 104 mm/Hg (28-44) H 04/28/18 06:55 VBG HCO3 26 mmol/L (22-28) 04/28/18 06:55 VBG Total CO2 24 mmol/L (22-29) 04/28/18 06:55 VBG O2 Saturation 99 % (70-80) H 04/28/18 06:55 VBG Base Excess 0.1 mmol/L (-3-3) 04/28/18 06:55 FiO2 21 % 04/27/18 13:00 Sodium 141 mmol/L (136-145) 04/30/18 07:20 Potassium 3.9 mmol/L (3.5-5.1) 04/30/18 07:20 Chloride 105 mmol/L (98-107) 04/30/18 07:20 Carbon Dioxide 27.7 mmol/L (21.0-32.0) 04/30/18 07:20 Anion Gap 8.3 mmol/L (3-11) 04/30/18 07:20 BUN 45 mg/dL (7-18) H 04/30/18 07:20 Creatinine 1.74 mg/dL (0.70-1.30) H 04/30/18 07:20 Estimated GFR/1.73 m2 40.36 (mL/min/1.73m2) 04/30/18 07:20 Glucose 197 mg/dL (70-100) H 04/30/18 07:20 Lactate 0.5 mmol/l (0.6-1.4) L 04/26/18 07:30 Calcium 8.7 mg/dL (8.5-10.1) 04/30/18 07:20 Magnesium 2.1 mg/dL (1.8-2.4) 04/30/18 07:20 Total Bilirubin 0.2 mg/dL (0.2-1.0) 04/26/18 07:30 AST 9 U/L (15-37) L 04/26/18 07:30 ALT 15 U/L (12-78) 04/26/18 07:30 Alkaline Phosphatase 145 U/L (46-116) H 04/26/18 07:30 Ammonia 24 umol/L (11-32) 04/25/18 20:43 Troponin I 0.06 ng/mL (0.00-0.06) 04/26/18 07:30 C-Reactive Protein 1.63 mg/dL (0.0-0.3) H 04/29/18 06:40 Total Protein 6.1 g/dL (6.4-8.2) L 04/26/18 07:30 Albumin 2.5 g/dL (3.4-5.0) L 04/26/18 07:30 TSH 0.37 uIU/mL (0.358-3.74) 04/26/18 07:30 Urine Color Yellow (Yellow) 04/26/18 11:15 Urine Clarity Clear 04/26/18 11:15 Urine pH 6.0 (5-8) 04/26/18 11:15 Ur Specific [place] 1.015 (1.005-1.025) 04/26/18 11:15 Urine Protein 100 mg/dL (Negative) H 04/26/18 11:15 Urine Ketones Negative mg/dL (Negative) 04/26/18 11:15 Urine Blood Moderate (Negative) H 04/26/18 11:15 Urine Nitrite Negative (Negative) 04/26/18 11:15 Urine Bilirubin Negative (Negative) 04/26/18 11:15 Urine Urobilinogen 0.2 EU/dL (Up TO 0.2) 04/26/18 11:15 Ur Leukocyte Esterase Small (Negative) H 04/26/18 11:15 Urine RBC Not Applicable 04/26/18 11:15 Urine WBC >50 HPF (0-5) 04/26/18 11:15 Ur Epithelial Cells Not Applicable 04/26/18 11:15 Urine Crystals Not Applicable 04/26/18 11:15 Urine Bacteria Not Applicable 04/26/18 11:15 Urine Casts 0-2 coarse granular LPF (Negative) 04/26/18 01:15 Urine Mucus Not Applicable 04/26/18 11:15 Urine Other Few yeast (Negative) 04/26/18 11:15 Ur Culture Indicated? Yes 04/26/18 11:15 Urine Glucose Negative mg/dL (Negative) 04/26/18 11:15 Vancomycin Trough 23.3 ug/mL (10.0-20.0) H* 04/28/18 18:20 Acetaminophen 5 ug/mL (10-30) L 04/25/18 20:43 Ethyl Alcohol < 3.0 mg/dL (<3) 04/25/18 20:43 C.difficile Tox Ab Neut Cancelled 04/26/18 10:13
[2018-04-30] MEDS: Lidocaine 5% Patch 1 PATCH TP (20:14)
[2018-04-30] MEDS: Hydrocortisone SOD SUC. 100 MG VIAL 25 MG IVP (20:16)
[2018-04-30] MEDS: Normal Saline Flush 10 ML SYR 20 ML IVP (20:17)
[2018-04-30] MEDS: Normal Saline 500 ML 30 ML IV (21:14)
--- NOTE | 2018-04-30 22:21 | NUR.NOTE ---
per radiology pt should not have iv contrast, Dr. Bravo notified- he states pt should not have IV contrast. Test delayed until Dr. Canela can clarify with radiologist. Nursing Note:
[2018-04-30] MEDS: risperiDONE 1 MG TAB 3 MG PO (22:52)
[2018-04-30] MEDS: Melatonin 3 MG TAB 9 MG PO (22:52)
[2018-04-30] MEDS: traZODone 50 MG TAB PO (22:53)
[2018-05-01] MEDS: Hydrocortisone SOD SUC. 100 MG VIAL 25 MG IVP ×3 (03:11→20:11)
[2018-05-01] MEDS: Normal Saline Flush 10 ML SYR IVP ×2 (03:12→12:20)
[2018-05-01 03:16] VITALS: BP 160/80; PULSE 66; RESP 18; TEMP 36.4; O2SAT 95
[2018-05-01] MEDS: Levothyroxine 75 MCG TAB 37.5 MCG PO (06:20)
[2018-05-01 08:39] LABS: Abs Immature Grans 0.09 k/cumm (0.0-0.09); Absolute Basophil Count 0.01 k/cumm (0.0-0.2); Absolute Monocyte Count 0.56 k/cumm (0.11-0.7); Absolute Neutrophil Count 9.41 k/cumm (1.2-6.7); Basophils % 0.1; Eosinophils % 1.8; HCT 33.4 % (40.0-50.0); HGB 10.2 g/dL (13.5-17.5); Immature Grans % 0.8; Lymphocytes % 6.4; Mean Corp. HGB Concentration 30.5 g/dL (32.0-36.0); Mean Corpuscular Volume 78.6 fL (80-95); Mean Platelet Volume 10.7 fL (8.0-11.0); Monocytes % 5.1; Neutrophils % 85.8; Platelet Count 290 x1000/uL (130-400); RBC 4.25 m/cumm (4.50-6.00); RBC Distribution Width 17.9 % (11.8-14.1); White Blood Cell Count 10.97 k/cumm (4.4-10.8)
[2018-05-01] MEDS: Gabapentin 300 MG CAP PO ×3 (08:40→20:10)
[2018-05-01] MEDS: Magnesium Chloride 64 MG TABCR PO ×2 (08:40→20:11)
[2018-05-01] MEDS: Terazosin 2 MG CAP 4 MG PO ×2 (08:40→20:11)
[2018-05-01] MEDS: cloNIDine 0.1 MG TAB 0.3 MG PO ×3 (08:41→20:11)
[2018-05-01] MEDS: Ascorbic Acid 500 MG TAB PO ×2 (08:41→20:11)
[2018-05-01] MEDS: Omeprazole 20 MG CAPCR PO (08:42)
[2018-05-01] MEDS: Cyanocobalamin 500 MCG TAB 1000 MCG PO (08:42)
[2018-05-01] MEDS: amLODIPine 5 MG TAB 10 MG PO (08:42)
[2018-05-01] MEDS: Multivitamin TAB 1 TAB PO (08:43)
[2018-05-01] MEDS: Ferrous Sulfate 325 MG TAB PO ×2 (08:43→20:11)
[2018-05-01] MEDS: hydrALAZINE 10 MG TAB PO ×3 (08:43→20:11)
[2018-05-01] MEDS: Aspirin E.C. 81 MG TABEC PO ×2 (08:43→20:11)
[2018-05-01] MEDS: Metoprolol CR 25 MG TABCR PO (08:44)
[2018-05-01] MEDS: Lactobacillus Acidophilus CAP 1 CAP PO ×3 (08:44→20:11)
[2018-05-01] MEDS: carBAMazepine 100 MG CHEW PO ×3 (08:44→20:11)
[2018-05-01] MEDS: Folic Acid 1 MG TAB PO (08:44)
[2018-05-01] MEDS: Venlafaxine 37.5 MG CAPCR 75 MG PO (08:45)
[2018-05-01] MEDS: Normal Saline Flush 10 ML SYR 20 ML IVP ×2 (08:45→20:12)
[2018-05-01] MEDS: Patch Removal 1 EACH TP (08:47)
[2018-05-01] MEDS: Insulin Aspart 300 UNITS/3 ML PEN SC ×7 (08:49→22:56)
[2018-05-01] MEDS: Insulin Glargine 300 UNITS/3 ML PEN 60 UNITS SC (08:50)
[2018-05-01] MEDS: Ketoconazole 2% CREAM 15 GM TUBE TP (08:53)
[2018-05-01] MEDS: Heparin 5,000 UNITS/ML VIAL 5000 UNITS SC ×2 (08:54→20:12)
[2018-05-01 08:58] VITALS: BP 160/72; PULSE 58; RESP 22; TEMP 36.8; O2SAT 91
[2018-05-01 09:04] LABS: Anion Gap 7.5 mmol/L (3-11); BUN 48 mg/dL (7-18); C-Reactive Protein 0.68 mg/dL (0.0-0.3); CO2 28.5 mmol/L (21.0-32.0); CREATININE 1.94 mg/dL (0.70-1.30); Calcium 8.5 mg/dL (8.5-10.1); Chloride 104 mmol/L (98-107); Glucose 250 mg/dL (70-100); Magnesium 2.1 mg/dL (1.8-2.4); Potassium 3.9 mmol/L (3.5-5.1); Sodium 140 mmol/L (136-145)
--- NOTE | 2018-05-01 10:22 | OT.INTREAT ---
Date of service: 05/01/18 Time of Service: 09:20 Occupational Therapy Notes Occupational Therapy Inpatient Treatment Note Date: 05/01/18 PRECAUTIONS: Contact, Fall SUBJECTIVE: Pt was lying in bed. He reports that he would like to get washed up and have his hair washed. OBJECTIVE: PAIN:no c/o pain. BATHING: Lying in bed with nursing (A) for pts hair Upper Body: Min (A) face, (I) elbow to wrists (B), (I) hands. Min (A) abdomen with min vc. Lower Body: Max (A) (B) LE DRESSING: Sitting in bed Upper Extremity: Mod (A) [facility] gown Lower Extremity: Max (A) (B) socks. ASSESSMENT/PLAN: Progression of (I) of ADLs in the sitting position and functional strengthening for (B) UE. Pt is pleasant and performing ADLs with increased (I). TREATMENT CODES/TIME: [id number], 34 minutes (09:20) Suzanne Javier OTR/[facility]
--- NOTE | 2018-05-01 10:27 | OTTR_ITS ---
Date of service: 05/01/18 Time of Service: 09:20 Occupational Therapy Notes Occupational Therapy Inpatient Treatment Note Date: 05/01/18 PRECAUTIONS: Contact, Fall SUBJECTIVE: Pt was lying in bed. He reports that he would like to get washed up and have his hair washed. OBJECTIVE: PAIN:no c/o pain. BATHING: Lying in bed with nursing (A) for pts hair Upper Body: Min (A) face, (I) elbow to wrists (B), (I) hands. Min (A) abdomen with min vc. Lower Body: Max (A) (B) LE DRESSING: Sitting in bed Upper Extremity: Mod (A) [facility] gown Lower Extremity: Max (A) (B) socks. ASSESSMENT/PLAN: Progression of (I) of ADLs in the sitting position and functional strengthening for (B) UE. Pt is pleasant and performing ADLs with increased (I). TREATMENT CODES/TIME: [id number], 34 minutes (09:20) Suzanne Javier OTR/[facility]
--- NOTE | 2018-05-01 11:35 | DI.CT_ITS ---
SYMPTOMS/DIAGNOSIS: RECURRENT BACTEREMIA, ? ABSCESS, RUE PAIN CT SCAN OF THE CHEST, ABDOMEN AND PELVIS: CT scan of the chest, abdomen and pelvis was performed following oral contrast. CT ABDOMEN AND PELVIS: Lack of IV contrast does limit evaluation of the abdominal and pelvic organs. The unenhanced liver, spleen, pancreas and adrenal glands show no acute abnormality. There are stones seen within the gallbladder. There is a cholecystostomy tube in place. The kidneys are grossly unremarkable without evidence of obstruction. The urinary bladder is intact. The reproductive organs are unremarkable. The patient is status post colectomy. There is an enterostomy in the right lower quadrant of the abdomen. No evidence of bowel obstruction is seen. No evidence of an infectious or inflammatory process of the bowel is present. The aorta is of normal caliber. No focal fluid collection is seen in the abdomen to suggest an abscess. No free fluid or peritoneum is present. No significant abdominal or pelvic adenopathy is present. Degenerative changes are seen in the spine. At L 2 - 3 there are again seen chronic changes. This includes fusion of the left aspect of the vertebral bodies. IMPRESSION: 1. Post surgical and post procedural changes in the abdomen and pelvis. 2. No focal fluid collection to suggest an abscess. No evidence of an acute inflammatory process in the abdomen or pelvis. CT SCAN OF THE CHEST: There is atherosclerosis of the thoracic aorta. The heart size is within normal limits. No significant pericardial effusion is seen. Calcified lymph nodes are seen in the mediastinum and christopher bilaterally consistent with prior granulomatous disease. Calcified lymph node is seen in the left upper lobe. There is an infiltrate seen in the left lung base. There is mild elevation of the left hemidiaphragm. This infiltrate may represent atelectasis, pneumonia or scarring. No effusion or pneumothorax is identified. The tracheobronchial tree is unremarkable. Dependent atelectatic changes are seen in the lungs. IMPRESSION: 1. Left basilar infiltrate which may represent atelectasis, scarring or pneumonia. 2. Findings of prior granulomatous disease in the chest. The findings were discussed with Dr. Canela on the date of the examination.
[2018-05-01] MEDS: Omnipaque 350 MG/ML 50 ML BTL IJ (11:41)
[2018-05-01] MEDS: Breeza Beverage 473 ML BTL PO (11:41)
[2018-05-01 11:53] VITALS: BP 142/75; PULSE 58; RESP 20; TEMP 37; O2SAT 94
--- NOTE | 2018-05-01 12:32 | W.NUTRFU ---
Date of service: 05/01/18 Time of Service: 12:33 Nutritional Follow up NOTE: Met with Brendan to discuss his options for increasing the amount of food he gets at meal times. We talked about starting first with vegetables, proteins, and free foods. He verbalized that he was amenable to having more protein foods. He already gets a double portion of vegetables. He can also use the low salt broths and diet gelatin as fillers. I did review limiting carbohydrates to 60 grams per meal, however his insulin to carbohydrate ratio is 1 unit:5 grams so there is some flexibility in how much carbohydrate he can eat. Brendan verbalized that he was pleased with his options available to him to have more food at meal times. CDM or RD will continue to visit him daily for meal selection. Time Spent in Nutritional Counseling and Treatment: JAVY
--- NOTE | 2018-05-01 13:00 | DI.CT_ITS ---
SYMPTOMS/DIAGNOSIS: RIGHT UPPER EXTREMITY PAIN; BACTEREMIA; ? ABSCESS CT SCAN OF THE RIGHT UPPER EXTREMITY: CT scans of the right shoulder and right elbow were obtained. CT scan of the right shoulder was performed. There are moderate degenerative changes of the shoulder, particularly the glenohumeral joint. No acute fracture or dislocation is seen. No destructive changes are seen in the bones to suggest osteomyelitis. There is a joint effusion present. No focal fluid collection is seen in the soft tissues to suggest an abscess. CT scan of the right elbow was obtained. Sagittal and coronal reformatted images were evaluated on the Siemens workstation. There is significant artifact from the patient's orthopedic hardware. There are sideplates and screws seen in the distal humerus and an intramedullary screw seen in the proximal ulna. Findings of old fractures involving the distal humerus and proximal ulna are noted. Extensive dystrophic calcifications are seen in the soft tissues, particularly around the distal humerus. No definite destructive changes are seen to suggest osteomyelitis. 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 There is edema seen in the soft tissues about the elbow, but no definite focal fluid collection is appreciated. IMPRESSION: 1. Compromised study of the elbow, particularly due to the patient's orthopedic hardware. 2. No definite evidence to suggest osteomyelitis. 3. Infiltrative changes seen in the soft tissues around the elbow, which may represent cellulitis.
--- NOTE | 2018-05-01 14:23 | PDOC.CMPRO ---
- If Service Date Differs Date of service: 05/01/18 Time of Service: 14:24 Care Management Progress Note S/O: Brendan is lying in bed this morning. KATELYN received notification from MD that Brendan will potentially be discharged on Daptomycin potentially ready for Friday. KATELYN spoke with Meg, [facility], to update her of the above. MACARENA Covarrubias CM, spoke with Isela, [facility], who states that Daptomycin is an expensive antibiotic, therefore [facility] is looking at cost, and are unsure if they will have the antibiotic for Friday. CM to continue to work with the [facility] in regards to discharge planning. A: 58 year old male admitted to [facility] 04/26/18 for UTI P: Brendan will return to [facility] once medically cleared. He will transport via [facility] when ready.
--- NOTE | 2018-05-01 14:26 | CMPROGNOTE_ITS ---
- If Service Date Differs Date of service: 05/01/18 Time of Service: 14:24 Care Management Progress Note S/O: Brendan is lying in bed this morning. KATELYN received notification from MD that Brendan will potentially be discharged on Daptomycin potentially ready for Friday. KATELYN spoke with Meg, [facility], to update her of the above. MACARENA Covarrubias CM, spoke with Isela, [facility], who states that Daptomycin is an expensive antibiotic, therefore [facility] is looking at cost, and are unsure if they will have the antibiotic for Friday. CM to continue to work with the [facility] in regards to discharge planning. A: 58 year old male admitted to [facility] 04/26/18 for UTI P: Brendan will return to [facility] once medically cleared. He will transport via [facility] when ready.
--- NOTE | 2018-05-01 14:50 | PT.INTREAT ---
Date of service: 05/01/18 Time of Service: 14:50 PT Notes Inpatient Physical Therapy Treatment Note [facility] Date: 05/01/18 PRECAUTIONS: Fall, Contact SUBJECTIVE: Brendan is pleasant and interaction. He reports that he is feeling good today, he is agreeable to participating in PT and looking forward to sitting up in his chair to look outside and sit in the sunshine. OBJECTIVE: PAIN: Patient complained of right elbow/arm pain. BED MOBILITY/TRANSFERS Supine-sit: SBA Sit-stand: SBA Stand-sit: SBA GAIT Assistive Device: FWW Weight bearing: Full Assist: SBA Distance: 10' in a.m.; 15' in p.m. THEREX: Patient completed sit?to?stand exercise from elevated bed surface with upper extremity support, x5 in a.m.; patient performed ankle pump exercise and seated position in p.m. Patient refused all other ther ex in both a.m. and p.m. ASSESSMENT: Patient tolerated sessions with minimal complaint of right elbow/arm pain. He was able to tolerate a progression in gait distance with FWW support and SBA. He would benefit from continued gait and transfer training as well as strengthening for improved mobility and activity tolerance. PLAN: Continue with PTs POC TREATMENT CODE/TIME: Session 1: 15 minutes; [id number] Session 2: 15 minutes; [id number]
--- NOTE | 2018-05-01 15:27 | CHAPLAIN ---
Brendan told me that they still are trying to determine if his elbow is causing his infection and he is waiting to hear the results of an xray which will determine how long he will need antibiotics for. He said he appreciates Dr. Canela providing good explanations of his care plan and treatment. Brendan asked me to let Phyllis Isaiah of [facility] know he is here and I left a message with her.
[2018-05-01 16:12] VITALS: BP 146/73; PULSE 66; RESP 19; TEMP 37.7; O2SAT 93
[2018-05-01] MEDS: Lidocaine 5% Patch 1 PATCH TP (20:12)
[2018-05-01 20:45] VITALS: BP 148/67; PULSE 70; RESP 19; TEMP 37.8; O2SAT 94
--- NOTE | 2018-05-01 21:05 | W.PM.PROGNOT ---
Date of Service Date of service: 05/01/18 Time of Service: 18:00 Assessment and Plan (1) Sepsis: Current visit: Yes Status: Acute Blood cultures done on admission are positive for MRSA. Repeat cultures on 04/27/18 show NGTD x 48 hrs. TTE without evidence of endocarditis. S/p PICC, on Vancomycin D5 since 1st negative blood culture. WBC scan is negative. Case discussed with [facility] Mcintyre at [facility] ([place]) who recommended to consider changing to daptomycin and to get the CT of chest/abdomen/pelvis. CT chest/abdomen/pelvis shows possible LLL pneumonia vs atelectasis/scarring. For this reason, I am fearful of changing to daptomycin because it is not effective in pulmonary infections. KELLEE is ordered for Friday. If the patient does not have the KELLEE because of anesthesia concerns, he should receive 6 weeks of IV abx. (2) Metabolic acidosis: Current visit: No Status: Acute Much improved and stable; likely due to acute on chronic adrenal insuffiency. Continue steroid taper, abx. ABG corrected. (3) UTI (urinary tract infection): Current visit: Yes Status: Acute Present on admission, culture mixed. No longer has a ruiz (4) Insufficiency, adrenal: Current visit: Yes Status: Acute As above. Taper hydrocortisone to 25 mg IV Q8hrs. (5) Toxic metabolic encephalopathy: Current visit: No Status: Resolved Resolved; Due to combination of sepsis, adrenal insufficiency and metabolic acidosis. Monitor as above conditions are getting addressed. (6) Pulmonary hypertension: Current visit: No Status: Chronic Carefully monitor volume status. (7) Chronic cholecystitis: Current visit: No Status: Acute Previously thought to be a poor surgical candidate. Will need to follow up with [facility] general surgery. Cholecystostomy drain is patent/draining. Previously re-evaluated by IR at [facility] and felt to be expected to be contaminated as it is open to the GI tract. I have received the same opinion from Dr Chauhan at [facility] in our discussion today - no benefit in changing the drain. (8) Hyperkalemia: Current visit: No Status: Resolved In setting of adrenal insufficiency and metabolic acidosis. Monitor. (9) Right elbow pain: Current visit: Yes Status: Acute Possible cellulitis on CT. WBC scan did not light up at the elbow. Orthopedics feels the joint is not infected. Patient would like to follow up with [facility] orthopedics where the surgery was first performed - we will need to arrange that follow up. (10) CKD (chronic kidney disease): Current visit: No Status: Chronic At baseline. Monitor Cr while diuresing, but no further workup at this time. 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 Has previously met with palliative care and maintained same decision. Continues to require hospitalization while IV steroids are being tapered to acceptable PO dose. Will need a very slow steroid taper as outpatient. Possible discharge back to the [facility] on Friday after KELLEE with a PICC and 6 weeks of daily abx. While the patient's length of stay is now 3 midnights, He continues to require inpatient hospitalization and transfer to a tertiary care facility would not provide any additional clinical benefit as all of the services he requires he can receive here, at [facility]. (13) DVT prophylaxis: Current visit: Yes Status: Acute SQ heparin as no further bleeding reported Continue TEDs and SCD's Subjective Interval history since last seen: Brendan states his R elbow still hurts. He denies dizziness, chest pain, does have some cough, but it is nonproductive, denies nausea/vomiting. Exam Narrative Exam Narrative: General: middle aged male, looks better, A&Ox3, retained all of the information we talked about yesterday and asks excellent follow up questionbs HEENT: EOMI, MMM, face edematous/Cushinoid Heart: RRR, + NUVIA Lungs: CTAB/diminished ABdomen: soft, nontender, nondistended; cholecystostomy and ileostomy in place Extremities: 1+ BLE edema with chronic venous stasis dermatitis; R elbow appears swollen, no erythema. I do not see any evidence of redness or swelling in R shoulder Objective Objective Clinical Data: Abnormal lab results 05/01/18 05/01/18 Range/Units 06:30 06:30 WBC 10.97 H (4.4-10.8) k/cumm RBC 4.25 L (4.50-6.00) m/cumm Hgb 10.2 L (13.5-17.5) g/dL Hct 33.4 L (40.0-50.0) % MCV 78.6 L (80-95) fL MCH 24.0 L (27.0-33.0) pg MCHC 30.5 L (32.0-36.0) g/dL RDW 17.9 H (11.8-14.1) % Absolute Neutrophils 9.41 H (1.2-6.7) k/cumm Absolute Lymphocytes 0.70 L (1.2-3.4) k/cumm BUN 48 H (7-18) mg/dL Creatinine 1.94 H (0.70-1.30) mg/dL Glucose 250 H (70-100) mg/dL C-Reactive Protein 0.68 H (0.0-0.3) mg/dL Vital Signs Temperature 37.7 C H 05/01/18 16:12 Temperature Source Tympanic 05/01/18 16:12 Pulse 66 05/01/18 16:12 Pulse Rhythm Regular 05/01/18 09:07 Pulse 63 04/29/18 10:00 Respiratory Rate 19 05/01/18 16:12 Respiratory Effort Non-Labored 05/01/18 09:07 Respiratory Depth Normal 05/01/18 09:07 Respiratory Pattern Normal 05/01/18 09:07 Blood Pressure 146/73 H 05/01/18 16:12 Blood Pressure Mean 102 04/29/18 19:26 Blood Pressure Position Supine 04/29/18 00:05 Pulse Oximetry 93 L 05/01/18 16:12 Oxygen Delivery Method Room Air 05/01/18 16:12 Oxygen Flow Rate 0 05/01/18 16:12 Pain Level 7 05/01/18 20:13 Comment 04/29/18 21:38 Intake & Output 04/30/18 05/01/18 05/01/18 23:59 11:59 23:59 Intake Total 790 / 1820 1030 / 1820 Output Total 3025 / 4625 2350 / 3950 1600 / 3950 Balance -3025 / -4105 -1560 / -2130 -570 / -2130 Weight 102.6 kg Intake: IV 70 / 80 10 80 Oral 720 / 1740 1020 / 1740 Output: Drainage 150 / 500 325 / 325 right abdomen 150 / 500 325 / 325 Urine 1550 / 2100 1175 / 1875 700 / 1875 Stool 1325 / 2025 850 / 1750 900 / 1750 Other: Urine Color Yellow Yellow Yellow Urine Appearance Clear Cloudy Cloudy Urine Odor None Normal Voiding Methods Urinal Urinal Urinal Laboratory Results WBC 10.97 k/cumm (4.4-10.8) H 05/01/18 06:30 RBC 4.25 m/cumm (4.50-6.00) L 05/01/18 06:30 Hgb 10.2 g/dL (13.5-17.5) L 05/01/18 06:30 Hct 33.4 % (40.0-50.0) L 05/01/18 06:30 MCV 78.6 fL (80-95) L 05/01/18 06:30 MCH 24.0 pg (27.0-33.0) L 05/01/18 06:30 MCHC 30.5 g/dL (32.0-36.0) L 05/01/18 06:30 RDW 17.9 % (11.8-14.1) H 05/01/18 06:30 Plt Count 290 x1000/uL (130-400) 05/01/18 06:30 MPV 10.7 fL (8.0-11.0) 05/01/18 06:30 Immature Gran % 0.8 05/01/18 06:30 Neutrophils % 85.8 05/01/18 06:30 Band Neutrophils % 1.0 % 04/27/18 07:11 Lymphocytes % 6.4 05/01/18 06:30 Monocytes % 5.1 05/01/18 06:30 Eosinophils % 1.8 05/01/18 06:30 Basophils % 0.1 05/01/18 06:30 Myelocytes % 2.0 % 04/27/18 07:11 Absolute Neutrophils 9.41 k/cumm (1.2-6.7) H 05/01/18 06:30 Absolute Lymphocytes 0.70 k/cumm (1.2-3.4) L 05/01/18 06:30 Absolute Monocytes 0.56 k/cumm (0.11-0.7) 05/01/18 06:30 Absolute Eosinophils 0.20 k/cumm (0.0-0.7) 05/01/18 06:30 Absolute Basophils 0.01 k/cumm (0.0-0.2) 05/01/18 06:30 Nucleated RBCs 1 /100WBC 04/26/18 07:30 Differential Comment Rbc morph reviewed 04/29/18 06:40 RBC Morphology See below 04/29/18 06:40 Polychromasia Present 04/29/18 06:40 Hypochromasia 2+ 04/29/18 06:40 Poikilocytosis 2+ 04/29/18 06:40 Basophilic Stippling Present 04/29/18 06:40 Anisocytosis 2+ 04/29/18 06:40 Microcytosis 2+ 04/29/18 06:40 Ovalocytes 2+ 04/29/18 06:40 Sathya Cells 2+ 04/26/18 07:30 Acanthocytes (Spur) 1+ 04/26/18 07:30 PT 9.6 sec (9.3-11.0) 04/26/18 07:30 INR 1.0 (0.9-1.1) 04/26/18 07:30 Sample Site Left radial 04/27/18 13:00 pCO2 44 mmHg (34-47) 04/27/18 13:00 pO2 62 mmHg (83-108) L 04/27/18 13:00 O2 Saturation 93 % (94-98) L 04/27/18 13:00 ABG pH 7.36 (7.35-7.45) 04/27/18 13:00 ABG HCO3 24 mmol/L (22-28) 04/27/18 13:00 ABG Total CO2 23 mmol/L (22-29) 04/27/18 13:00 ABG Base Excess -1.1 mmol/L (-3-3) 04/27/18 13:00 VBG pH 7.34 (7.32-7.43) 04/28/18 06:55 VBG pCO2 48 mm/Hg (34-47) H 04/28/18 06:55 VBG pO2 104 mm/Hg (28-44) H 04/28/18 06:55 VBG HCO3 26 mmol/L (22-28) 04/28/18 06:55 VBG Total CO2 24 mmol/L (22-29) 04/28/18 06:55 VBG O2 Saturation 99 % (70-80) H 04/28/18 06:55 VBG Base Excess 0.1 mmol/L (-3-3) 04/28/18 06:55 FiO2 21 % 04/27/18 13:00 Sodium 140 mmol/L (136-145) 05/01/18 06:30 Potassium 3.9 mmol/L (3.5-5.1) 05/01/18 06:30 Chloride 104 mmol/L (98-107) 05/01/18 06:30 Carbon Dioxide 28.5 mmol/L (21.0-32.0) 05/01/18 06:30 Anion Gap 7.5 mmol/L (3-11) 05/01/18 06:30 BUN 48 mg/dL (7-18) H 05/01/18 06:30 Creatinine 1.94 mg/dL (0.70-1.30) H 05/01/18 06:30 Estimated GFR/1.73 m2 35.60 (mL/min/1.73m2) 05/01/18 06:30 Glucose 250 mg/dL (70-100) H 05/01/18 06:30 Lactate 0.5 mmol/l (0.6-1.4) L 04/26/18 07:30 Calcium 8.5 mg/dL (8.5-10.1) 05/01/18 06:30 Magnesium 2.1 mg/dL (1.8-2.4) 05/01/18 06:30 Total Bilirubin 0.2 mg/dL (0.2-1.0) 04/26/18 07:30 AST 9 U/L (15-37) L 04/26/18 07:30 ALT 15 U/L (12-78) 04/26/18 07:30 Alkaline Phosphatase 145 U/L (46-116) H 04/26/18 07:30 Ammonia 24 umol/L (11-32) 04/25/18 20:43 Troponin I 0.06 ng/mL (0.00-0.06) 04/26/18 07:30 C-Reactive Protein 0.68 mg/dL (0.0-0.3) H 05/01/18 06:30 Total Protein 6.1 g/dL (6.4-8.2) L 04/26/18 07:30 Albumin 2.5 g/dL (3.4-5.0) L 04/26/18 07:30 TSH 0.37 uIU/mL (0.358-3.74) 04/26/18 07:30 Urine Color Yellow (Yellow) 04/26/18 11:15 Urine Clarity Clear 04/26/18 11:15 Urine pH 6.0 (5-8) 04/26/18 11:15 Ur Specific [place] 1.015 (1.005-1.025) 04/26/18 11:15 Urine Protein 100 mg/dL (Negative) H 04/26/18 11:15 Urine Ketones Negative mg/dL (Negative) 04/26/18 11:15 Urine Blood Moderate (Negative) H 04/26/18 11:15 Urine Nitrite Negative (Negative) 04/26/18 11:15 Urine Bilirubin Negative (Negative) 04/26/18 11:15 Urine Urobilinogen 0.2 EU/dL (Up TO 0.2) 04/26/18 11:15 Ur Leukocyte Esterase Small (Negative) H 04/26/18 11:15 Urine RBC Not Applicable 04/26/18 11:15 Urine WBC >50 HPF (0-5) 04/26/18 11:15 Ur Epithelial Cells Not Applicable 04/26/18 11:15 Urine Crystals Not Applicable 04/26/18 11:15 Urine Bacteria Not Applicable 04/26/18 11:15 Urine Casts 0-2 coarse granular LPF (Negative) 04/26/18 01:15 Urine Mucus Not Applicable 04/26/18 11:15 Urine Other Few yeast (Negative) 04/26/18 11:15 Ur Culture Indicated? Yes 04/26/18 11:15 Urine Glucose Negative mg/dL (Negative) 04/26/18 11:15 Vancomycin Trough 23.3 ug/mL (10.0-20.0) H* 04/28/18 18:20 Acetaminophen 5 ug/mL (10-30) L 04/25/18 20:43 Ethyl Alcohol < 3.0 mg/dL (<3) 04/25/18 20:43 C.difficile Tox Ab Neut Cancelled 04/26/18 10:13 CT chest/abdomen/pelvis without contrast: 1. Post surgical and post procedural changes in the abdomen and pelvis. 2. No focal fluid collection to suggest an abscess. No evidence of an acute inflammatory process in the abdomen or pelvis. 1. Left basilar infiltrate which may represent atelectasis, scarring or pneumonia. 2. Findings of prior granulomatous disease in the chest. CT RUE: 1. Compromised study of the elbow, particularly due to the patient's orthopedic hardware. 2. No definite evidence to suggest osteomyelitis. 3. Infiltrative changes seen in the soft tissues around the elbow, which may represent cellulitis.
--- NOTE | 2018-05-01 21:12 | PGE_ITS ---
Date of Service Date of service: 05/01/18 Time of Service: 18:00 Assessment and Plan (1) Sepsis: Current visit: Yes Status: Acute Blood cultures done on admission are positive for MRSA. Repeat cultures on 04/27/18 show NGTD x 48 hrs. TTE without evidence of endocarditis. S/p PICC, on Vancomycin D5 since 1st negative blood culture. WBC scan is negative. Case discussed with Dr Mcintyre at [facility] (ID) who recommended to consider changing to daptomycin and to get the CT of chest/abdomen/pelvis. CT chest/abdomen/pelvis shows possible LLL pneumonia vs atelectasis/scarring. For this reason, I am fearful of changing to daptomycin because it is not effective in pulmonary infections. KELLEE is ordered for Friday. If the patient does not have the KELLEE because of anesthesia concerns, he should receive 6 weeks of IV abx. (2) Metabolic acidosis: Current visit: No Status: Acute Much improved and stable; likely due to acute on chronic adrenal insuffiency. Continue steroid taper, abx. ABG corrected. (3) UTI (urinary tract infection): Current visit: Yes Status: Acute Present on admission, culture mixed. No longer has a ruiz (4) Insufficiency, adrenal: Current visit: Yes Status: Acute As above. Taper hydrocortisone to 25 mg IV Q8hrs. (5) Toxic metabolic encephalopathy: Current visit: No Status: Resolved Resolved; Due to combination of sepsis, adrenal insufficiency and metabolic acidosis. Monitor as above conditions are getting addressed. (6) Pulmonary hypertension: Current visit: No Status: Chronic Carefully monitor volume status. (7) Chronic cholecystitis: Current visit: No Status: Acute Previously thought to be a poor surgical candidate. Will need to follow up with [facility] general surgery. Cholecystostomy drain is patent/draining. Previously re-evaluated by IR at [facility] and felt to be expected to be contaminated as it is open to the GI tract. I have received the same opinion from Dr Chauhan at [facility] in our discussion today - no benefit in changing the drain. (8) Hyperkalemia: Current visit: No Status: Resolved In setting of adrenal insufficiency and metabolic acidosis. Monitor. (9) Right elbow pain: Current visit: Yes Status: Acute Possible cellulitis on CT. WBC scan did not light up at the elbow. Orthopedics feels the joint is not infected. Patient would like to follow up with [facility] orthopedics where the surgery was first performed - we will need to arrange that follow up. (10) CKD (chronic kidney disease): Current visit: No Status: Chronic At baseline. Monitor Cr while diuresing, but no further workup at this time. 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 Has previously met with palliative care and maintained same decision. Continues to require hospitalization while IV steroids are being tapered to acceptable PO dose. Will need a very slow steroid taper as outpatient. Possible discharge back to the [facility] on Friday after KELLEE with a PICC and 6 weeks of daily abx. While the patient's length of stay is now 3 midnights, He continues to require inpatient hospitalization and transfer to a tertiary care facility would not provide any additional clinical benefit as all of the services he requires he can receive here, at [facility]. (13) DVT prophylaxis: Current visit: Yes Status: Acute SQ heparin as no further bleeding reported Continue TEDs and SCD's Subjective Interval history since last seen: Brendan states his R elbow still hurts. He denies dizziness, chest pain, does have some cough, but it is nonproductive, denies nausea/vomiting. Exam Narrative Exam Narrative: General: middle aged male, looks better, A&Ox3, retained all of the information we talked about yesterday and asks excellent follow up questionbs HEENT: EOMI, MMM, face edematous/Cushinoid Heart: RRR, + NUVIA Lungs: CTAB/diminished ABdomen: soft, nontender, nondistended; cholecystostomy and ileostomy in place Extremities: 1+ BLE edema with chronic venous stasis dermatitis; R elbow appears swollen, no erythema. I do not see any evidence of redness or swelling in R shoulder Objective Objective Clinical Data: Abnormal lab results 05/01/18 05/01/18 Range/Units 06:30 06:30 WBC 10.97 H (4.4-10.8) k/cumm RBC 4.25 L (4.50-6.00) m/cumm Hgb 10.2 L (13.5-17.5) g/dL Hct 33.4 L (40.0-50.0) % MCV 78.6 L (80-95) fL MCH 24.0 L (27.0-33.0) pg MCHC 30.5 L (32.0-36.0) g/dL RDW 17.9 H (11.8-14.1) % Absolute Neutrophils 9.41 H (1.2-6.7) k/cumm Absolute Lymphocytes 0.70 L (1.2-3.4) k/cumm BUN 48 H (7-18) mg/dL Creatinine 1.94 H (0.70-1.30) mg/dL Glucose 250 H (70-100) mg/dL C-Reactive Protein 0.68 H (0.0-0.3) mg/dL Vital Signs Temperature 37.7 C H 05/01/18 16:12 Temperature Source Tympanic 05/01/18 16:12 Pulse 66 05/01/18 16:12 Pulse Rhythm Regular 05/01/18 09:07 Pulse 63 04/29/18 10:00 Respiratory Rate 19 05/01/18 16:12 Respiratory Effort Non-Labored 05/01/18 09:07 Respiratory Depth Normal 05/01/18 09:07 Respiratory Pattern Normal 05/01/18 09:07 Blood Pressure 146/73 H 05/01/18 16:12 Blood Pressure Mean 102 04/29/18 19:26 Blood Pressure Position Supine 04/29/18 00:05 Pulse Oximetry 93 L 05/01/18 16:12 Oxygen Delivery Method Room Air 05/01/18 16:12 Oxygen Flow Rate 0 05/01/18 16:12 Pain Level 7 05/01/18 20:13 Comment 04/29/18 21:38 Intake & Output 04/30/18 05/01/18 05/01/18 23:59 11:59 23:59 Intake Total 790 / 1820 1030 / 1820 Output Total 3025 / 4625 2350 / 3950 1600 / 3950 Balance -3025 / -4105 -1560 / -2130 -570 / -2130 Weight 102.6 kg Intake: IV 70 / 80 10 80 Oral 720 / 1740 1020 / 1740 Output: Drainage 150 / 500 325 / 325 right abdomen 150 / 500 325 / 325 Urine 1550 / 2100 1175 / 1875 700 / 1875 Stool 1325 / 2025 850 / 1750 900 / 1750 Other: Urine Color Yellow Yellow Yellow Urine Appearance Clear Cloudy Cloudy Urine Odor None Normal Voiding Methods Urinal Urinal Urinal Laboratory Results WBC 10.97 k/cumm (4.4-10.8) H 05/01/18 06:30 RBC 4.25 m/cumm (4.50-6.00) L 05/01/18 06:30 Hgb 10.2 g/dL (13.5-17.5) L 05/01/18 06:30 Hct 33.4 % (40.0-50.0) L 05/01/18 06:30 MCV 78.6 fL (80-95) L 05/01/18 06:30 MCH 24.0 pg (27.0-33.0) L 05/01/18 06:30 MCHC 30.5 g/dL (32.0-36.0) L 05/01/18 06:30 RDW 17.9 % (11.8-14.1) H 05/01/18 06:30 Plt Count 290 x1000/uL (130-400) 05/01/18 06:30 MPV 10.7 fL (8.0-11.0) 05/01/18 06:30 Immature Gran % 0.8 05/01/18 06:30 Neutrophils % 85.8 05/01/18 06:30 Band Neutrophils % 1.0 % 04/27/18 07:11 Lymphocytes % 6.4 05/01/18 06:30 Monocytes % 5.1 05/01/18 06:30 Eosinophils % 1.8 05/01/18 06:30 Basophils % 0.1 05/01/18 06:30 Myelocytes % 2.0 % 04/27/18 07:11 Absolute Neutrophils 9.41 k/cumm (1.2-6.7) H 05/01/18 06:30 Absolute Lymphocytes 0.70 k/cumm (1.2-3.4) L 05/01/18 06:30 Absolute Monocytes 0.56 k/cumm (0.11-0.7) 05/01/18 06:30 Absolute Eosinophils 0.20 k/cumm (0.0-0.7) 05/01/18 06:30 Absolute Basophils 0.01 k/cumm (0.0-0.2) 05/01/18 06:30 Nucleated RBCs 1 /100WBC 04/26/18 07:30 Differential Comment Rbc morph reviewed 04/29/18 06:40 RBC Morphology See below 04/29/18 06:40 Polychromasia Present 04/29/18 06:40 Hypochromasia 2+ 04/29/18 06:40 Poikilocytosis 2+ 04/29/18 06:40 Basophilic Stippling Present 04/29/18 06:40 Anisocytosis 2+ 04/29/18 06:40 Microcytosis 2+ 04/29/18 06:40 Ovalocytes 2+ 04/29/18 06:40 Sathya Cells 2+ 04/26/18 07:30 Acanthocytes (Spur) 1+ 04/26/18 07:30 PT 9.6 sec (9.3-11.0) 04/26/18 07:30 INR 1.0 (0.9-1.1) 04/26/18 07:30 Sample Site Left radial 04/27/18 13:00 pCO2 44 mmHg (34-47) 04/27/18 13:00 pO2 62 mmHg (83-108) L 04/27/18 13:00 O2 Saturation 93 % (94-98) L 04/27/18 13:00 ABG pH 7.36 (7.35-7.45) 04/27/18 13:00 ABG HCO3 24 mmol/L (22-28) 04/27/18 13:00 ABG Total CO2 23 mmol/L (22-29) 04/27/18 13:00 ABG Base Excess -1.1 mmol/L (-3-3) 04/27/18 13:00 VBG pH 7.34 (7.32-7.43) 04/28/18 06:55 VBG pCO2 48 mm/Hg (34-47) H 04/28/18 06:55 VBG pO2 104 mm/Hg (28-44) H 04/28/18 06:55 VBG HCO3 26 mmol/L (22-28) 04/28/18 06:55 VBG Total CO2 24 mmol/L (22-29) 04/28/18 06:55 VBG O2 Saturation 99 % (70-80) H 04/28/18 06:55 VBG Base Excess 0.1 mmol/L (-3-3) 04/28/18 06:55 FiO2 21 % 04/27/18 13:00 Sodium 140 mmol/L (136-145) 05/01/18 06:30 Potassium 3.9 mmol/L (3.5-5.1) 05/01/18 06:30 Chloride 104 mmol/L (98-107) 05/01/18 06:30 Carbon Dioxide 28.5 mmol/L (21.0-32.0) 05/01/18 06:30 Anion Gap 7.5 mmol/L (3-11) 05/01/18 06:30 BUN 48 mg/dL (7-18) H 05/01/18 06:30 Creatinine 1.94 mg/dL (0.70-1.30) H 05/01/18 06:30 Estimated GFR/1.73 m2 35.60 (mL/min/1.73m2) 05/01/18 06:30 Glucose 250 mg/dL (70-100) H 05/01/18 06:30 Lactate 0.5 mmol/l (0.6-1.4) L 04/26/18 07:30 Calcium 8.5 mg/dL (8.5-10.1) 05/01/18 06:30 Magnesium 2.1 mg/dL (1.8-2.4) 05/01/18 06:30 Total Bilirubin 0.2 mg/dL (0.2-1.0) 04/26/18 07:30 AST 9 U/L (15-37) L 04/26/18 07:30 ALT 15 U/L (12-78) 04/26/18 07:30 Alkaline Phosphatase 145 U/L (46-116) H 04/26/18 07:30 Ammonia 24 umol/L (11-32) 04/25/18 20:43 Troponin I 0.06 ng/mL (0.00-0.06) 04/26/18 07:30 C-Reactive Protein 0.68 mg/dL (0.0-0.3) H 05/01/18 06:30 Total Protein 6.1 g/dL (6.4-8.2) L 04/26/18 07:30 Albumin 2.5 g/dL (3.4-5.0) L 04/26/18 07:30 TSH 0.37 uIU/mL (0.358-3.74) 04/26/18 07:30 Urine Color Yellow (Yellow) 04/26/18 11:15 Urine Clarity Clear 04/26/18 11:15 Urine pH 6.0 (5-8) 04/26/18 11:15 Ur Specific [place] 1.015 (1.005-1.025) 04/26/18 11:15 Urine Protein 100 mg/dL (Negative) H 04/26/18 11:15 Urine Ketones Negative mg/dL (Negative) 04/26/18 11:15 Urine Blood Moderate (Negative) H 04/26/18 11:15 Urine Nitrite Negative (Negative) 04/26/18 11:15 Urine Bilirubin Negative (Negative) 04/26/18 11:15 Urine Urobilinogen 0.2 EU/dL (Up TO 0.2) 04/26/18 11:15 Ur Leukocyte Esterase Small (Negative) H 04/26/18 11:15 Urine RBC Not Applicable 04/26/18 11:15 Urine WBC >50 HPF (0-5) 04/26/18 11:15 Ur Epithelial Cells Not Applicable 04/26/18 11:15 Urine Crystals Not Applicable 04/26/18 11:15 Urine Bacteria Not Applicable 04/26/18 11:15 Urine Casts 0-2 coarse granular LPF (Negative) 04/26/18 01:15 Urine Mucus Not Applicable 04/26/18 11:15 Urine Other Few yeast (Negative) 04/26/18 11:15 Ur Culture Indicated? Yes 04/26/18 11:15 Urine Glucose Negative mg/dL (Negative) 04/26/18 11:15 Vancomycin Trough 23.3 ug/mL (10.0-20.0) H* 04/28/18 18:20 Acetaminophen 5 ug/mL (10-30) L 04/25/18 20:43 Ethyl Alcohol < 3.0 mg/dL (<3) 04/25/18 20:43 C.difficile Tox Ab Neut Cancelled 04/26/18 10:13 CT chest/abdomen/pelvis without contrast: 1. Post surgical and post procedural changes in the abdomen and pelvis. 2. No focal fluid collection to suggest an abscess. No evidence of an acute inflammatory process in the abdomen or pelvis. 1. Left basilar infiltrate which may represent atelectasis, scarring or pneumonia. 2. Findings of prior granulomatous disease in the chest. CT RUE: 1. Compromised study of the elbow, particularly due to the patient's orthopedic hardware. 2. No definite evidence to suggest osteomyelitis. 3. Infiltrative changes seen in the soft tissues around the elbow, which may represent cellulitis.
[2018-05-02] MEDS: Melatonin 3 MG TAB 9 MG PO (00:27)
[2018-05-02] MEDS: traZODone 50 MG TAB PO (00:28)
[2018-05-02] MEDS: risperiDONE 1 MG TAB 3 MG PO (00:28)
[2018-05-02 03:00] VITALS: BP 139/74; PULSE 62; RESP 16; TEMP 36.6; O2SAT 92
[2018-05-02] MEDS: Hydrocortisone SOD SUC. 100 MG VIAL 25 MG IVP ×3 (03:40→20:43)
[2018-05-02] MEDS: Normal Saline Flush 10 ML SYR IVP ×3 (03:42→17:00)
[2018-05-02] MEDS: Levothyroxine 75 MCG TAB 37.5 MCG PO (06:19)
[2018-05-02 07:10] LABS: Abs Immature Grans 0.15 k/cumm (0.0-0.09); Absolute Basophil Count 0.01 k/cumm (0.0-0.2); Absolute Eosinophil Count 0.24 k/cumm (0.0-0.7); Absolute Monocyte Count 0.63 k/cumm (0.11-0.7); Basophils % 0.1; Eosinophils % 1.9; HCT 33.5 % (40.0-50.0); HGB 10.4 g/dL (13.5-17.5); Immature Grans % 1.2; Lymphocytes % 5.7; Mean Corpuscular Hemoglobin 24.5 pg (27.0-33.0); Mean Corpuscular Volume 78.8 fL (80-95); Mean Platelet Volume 9.9 fL (8.0-11.0); Neutrophils % 86.1; Platelet Count 258 x1000/uL (130-400); RBC 4.25 m/cumm (4.50-6.00); RBC Distribution Width 17.7 % (11.8-14.1); White Blood Cell Count 12.53 k/cumm (4.4-10.8)
[2018-05-02 07:13] LABS: Absolute Lymphocyte Count 0.71 k/cumm (1.2-3.4); Absolute Neutrophil Count 10.79 k/cumm (1.2-6.7)
[2018-05-02 07:43] LABS: Anion Gap 5.4 mmol/L (3-11); BUN 50 mg/dL (7-18); CO2 26.6 mmol/L (21.0-32.0); CREATININE 2.64 mg/dL (0.70-1.30); Calcium 8.6 mg/dL (8.5-10.1); Chloride 104 mmol/L (98-107); Estimated GFR 24.95 (mL/min/1.73m2); Glucose 200 mg/dL (70-100); Potassium 5.6 mmol/L (3.5-5.1); Sodium 136 mmol/L (136-145)
[2018-05-02 07:50] VITALS: BP 177/80; PULSE 65; RESP 22; TEMP 36; O2SAT 96
[2018-05-02] MEDS: Terazosin 2 MG CAP 4 MG PO (08:16)
[2018-05-02] MEDS: amLODIPine 5 MG TAB 10 MG PO (08:16)
[2018-05-02] MEDS: Venlafaxine 37.5 MG CAPCR 75 MG PO (08:16)
[2018-05-02] MEDS: hydrALAZINE 10 MG TAB PO (08:16)
[2018-05-02] MEDS: Magnesium Chloride 64 MG TABCR PO (08:16)
[2018-05-02] MEDS: cloNIDine 0.1 MG TAB 0.3 MG PO (08:16)
[2018-05-02] MEDS: Metoprolol CR 25 MG TABCR PO (08:16)
[2018-05-02] MEDS: Cyanocobalamin 500 MCG TAB 1000 MCG PO (08:16)
[2018-05-02] MEDS: Gabapentin 300 MG CAP PO (08:17)
[2018-05-02] MEDS: Ferrous Sulfate 325 MG TAB PO (08:17)
[2018-05-02] MEDS: Aspirin E.C. 81 MG TABEC PO (08:17)
[2018-05-02] MEDS: carBAMazepine 100 MG CHEW PO (08:17)
[2018-05-02] MEDS: Multivitamin TAB 1 TAB PO (08:17)
[2018-05-02] MEDS: Heparin 5,000 UNITS/ML VIAL 5000 UNITS SC ×2 (08:17→20:43)
[2018-05-02] MEDS: Ascorbic Acid 500 MG TAB PO (08:17)
[2018-05-02] MEDS: Folic Acid 1 MG TAB PO (08:17)
[2018-05-02] MEDS: Lactobacillus Acidophilus CAP 1 CAP PO (08:17)
[2018-05-02] MEDS: Omeprazole 20 MG CAPCR PO (08:17)
[2018-05-02] MEDS: Insulin Aspart 300 UNITS/3 ML PEN SC ×5 (08:18→17:08)
[2018-05-02] MEDS: Insulin Glargine 300 UNITS/3 ML PEN 60 UNITS SC (08:20)
[2018-05-02] MEDS: Normal Saline Flush 10 ML SYR 20 ML IVP ×2 (08:21→20:43)
[2018-05-02] MEDS: Ketoconazole 2% CREAM 15 GM TUBE TP (08:22)
--- NOTE | 2018-05-02 10:53 | PT.INTREAT ---
Date of service: 05/02/18 Time of Service: 10:53 PT Notes Inpatient Physical Therapy Treatment Note [facility] Date: 05/02/18 PRECAUTIONS: Fall, Contact SUBJECTIVE: Brendan states that he is feeling pretty good this morning, he is pleasant and agreeable to participating in PT. OBJECTIVE: PAIN: No c/o pain BED MOBILITY/TRANSFERS Supine-sit: S Sit-stand: SBA Stand-sit: SBA GAIT Assistive Device: FWW Weight bearing: Full Assist: SBA Distance: 50' Deviation: Wheelchair follow THEREX: Refused due to fatigue. ASSESSMENT: Patient tolerated session well with some c/o fatigue following gait training. He tolerated a progression in gait distance with FWW support and SBA with wheelchair follow. He would benefit from continued gait and transfer training for improved mobility and improved activity tolerance. PLAN: Continue with PT's POC TREATMENT CODE/TIME: 20 minutes; [id number]
--- NOTE | 2018-05-02 10:57 | PTTR_ITS ---
Date of service: 05/02/18 Time of Service: 10:53 PT Notes Inpatient Physical Therapy Treatment Note [facility] Date: 05/02/18 PRECAUTIONS: Fall, Contact SUBJECTIVE: Brendan states that he is feeling pretty good this morning, he is ple asant and agreeable to participating in PT. OBJECTIVE: PAIN: No c/o pain BED MOBILITY/TRANSFERS Supine-sit: S Sit-stand: SBA Stand-sit: SBA GAIT Assistive Device: FWW Weight bearing: Full Assist: SBA Distance: 50' Deviation: Wheelchair follow THEREX: Refused due to fatigue. ASSESSMENT: Patient tolerated session well with some c/o fatigue following gait training. He tolerated a progression in gait distance with FWW support and SBA with wheelchair follow. He would benefit from continued gait and transfer training for improved mobility and improved activity tolerance. PLAN: Continue with PT's POC TREATMENT CODE/TIME: 20 minutes; [id number]
--- NOTE | 2018-05-02 11:42 | CMPROGNOTE_ITS ---
Care Management Progress Note S/O: CM notified MD of concern around cost of Dapto ABX for [facility]. Dr. Gan reported he would discuss with ID at [facility]. Brendan was quite groggy when CM met with him. CM encouraged him to wake up and provided topics of interest to discuss such as how he is enjoying the [facility] and his most recent visit with his sister, nieces and nephew. As Brendan became more alert he started to describe how he had not been feeling well, Karolina FIORE entered to room with medications. Shortly thereafter, Brendan began vomiting. CM will continue to follow. A: 58 year old male admitted to [facility] 04/26/18 for UTI P: Brendan will return to [facility] once medically cleared. He will transport via [facility] when ready.
[2018-05-02 11:45] VITALS: BP 136/78; PULSE 52; RESP 20; TEMP 36.2; O2SAT 95
[2018-05-02] MEDS: Patch Removal 1 EACH TP (14:18)
--- NOTE | 2018-05-02 14:36 | W.PM.PROGNOT ---
Date of Service Date of service: 05/02/18 Time of Service: 11:37 Assessment and Plan (1) Sepsis: Current visit: Yes Status: Acute Blood cultures remain sterile since the fourth. No further growth of MRSA. He continues on vancomycin. Daptomycin is too expensive for use at the [facility] and we may end up leaving him on vancomycin. White count and CRP are going up. Plans are for transesophageal echocardiogram on Friday if possible. PICC functioning well and no signs of infection around the site. He is not having any symptoms of pneumonia and his lung exam is unimpressive in terms of a staph pneumonia. Disturbing that his inflammatory markers are going up. His elbow is non-irritable although he does have evidence of superficial inflammation on the skin. It is not clear if he has infected hardware in the right distal arm but exam is benign. I do not find any other source of infection at this time. Always possible that the ulcerations in his toes/foot or his cutaneous cholecystostomy tube might be an entry point for other pathogens. At this point I am not expanding his antibiotic coverage but will monitor lab work and exam clinically. (2) Metabolic acidosis: Current visit: No Status: Acute Bicarb remains normal. Monitor for recurrence. (3) UTI (urinary tract infection): Current visit: Yes Status: Acute Present on admission, culture mixed. No longer has a ruiz. Urine culture growing yeast, not clear if this is truly a pathogen or simply represents colonization. Prior urine sample growing mixed organisms unclear if there is any significance to that either. (4) Insufficiency, adrenal: Current visit: Yes Status: Acute Hydrocortisone dose decreased yesterday. Hold on the 25 mg IV hydrocortisone every 8 hours for another 24 hours then start consider switching to oral prednisone, with slow taper back to his baseline dose.. (5) Toxic metabolic encephalopathy: Current visit: No Status: Resolved Resolved; Due to combination of sepsis, adrenal insufficiency and metabolic acidosis. Monitor as above conditions are getting addressed. Does not seem to have had any recurrence. (6) Pulmonary hypertension: Current visit: No Status: Chronic Mild elevation in pulmonary artery pressure on echo. Monitor fluid status. (7) Chronic cholecystitis: Current visit: No Status: Acute Per documentation from Dr. Canela, no plans for changing his tube. If inflammatory markers continue to go up, may need to consider broadening antibiotic coverage for possible biliary tract pathogens. (8) Hyperkalemia: Current visit: No Status: Resolved Unclear why potassium is gone back up. Perhaps related to the slight reduction in his hydrocortisone? Renal function is a little worse and that may be contributing as well. Continue to monitor labs. No med adjustments made today. (9) Right elbow pain: Current visit: Yes Status: Acute Clinically appears to be cellulitic, not irritable elbow and I do not see as a septic arthritis. Follow. (10) CKD (chronic kidney disease): Current visit: No Status: Chronic Creatinine has gone up somewhat and it is not clear why. He is not on diuretics now. Adjust medications for renal insufficiency and monitor BUN and creatinine. (11) Poorly controlled type 2 diabetes mellitus with circulatory disorder: Current visit: No Status: Chronic Continue basal bolus insulin. His control is somewhat suboptimal. Stress dose steroids aggravating his hyperglycemia. I am increasing his Lantus slightly. I would like to see his blood sugars between 140 and 180 if possible. (12) Discharge planning issues: Current visit: Yes Status: Acute Full code. Has previously met with palliative care and maintained same decision. Continues to require hospitalization while IV steroids are being tapered to acceptable PO dose. Will need a very slow steroid taper as outpatient. Possible discharge back to the [facility] on Friday after KELLEE with a PICC and 6 weeks of daily abx. While the patient's length of stay is now 3 midnights, He continues to require inpatient hospitalization and transfer to a tertiary care facility would not provide any additional clinical benefit as all of the services he requires he can receive here, at [facility]. (13) DVT prophylaxis: Current visit: Yes Status: Acute SQ heparin as no further bleeding reported Continue TEDs and SCD's (14) Hypertension: Current visit: Yes Status: Chronic Blood pressures are bouncing around a bit, no change in his current regimen. Subjective Patient reports: no new complaints Interval history since last seen: Overall the feels about the same as he did yesterday. Does not have any increased pain in the right elbow area. He has questions about when he can go back to the [facility]. Has not had any fever. Blood sugars. Blood sugars have been consistently over 200 in the past 24 hours. Ostomy output has been stable. He has had no redness or pain or drainage around his cholecystostomy tube. He denies cough or shortness of breath. Denies any pleuritic chest pain. Denies nausea. Denies dysuria. PICC line site without any discomfort. Appetite is doing well. Exam Narrative Exam Narrative: Sitting in chair he is in no acute distress. He sits up with minimal assistance. Pupils equal pupils equal and reactive, extraocular movements normal. Poor dentition but I do not see any intraoral lesions. No cervical adenopathy. Lungs have diminished breath sounds at the left base no crackles or wheeze no rub. Heart rhythm regular with an occasional ectopic beat, no murmur S3 or S4 heard. Abdomen obese soft normal bowel sounds, no tenderness. The cholecystotomy tube exit site is without erythema or discharge. His ostomy site in the right lower abdomen has no tenderness. He reports that he has been told he has a open area on his buttocks which I did not examine. He has superficial erosion on the dorsal surface of the right foot at the base of his fifth toe, ulceration of the lateral side of the right great toe, 3 mm ulceration on the plantar aspect of his left foot beneath the third metatarsal and superficial erosion on the dorsum of the left fourth toe. He has diminished light touch sensation in both feet. 1+ pulses in both feet. Feet are scaly. Objective Objective Clinical Data: Abnormal lab results 05/02/18 05/02/18 Range/Units 06:25 06:25 WBC 12.53 H (4.4-10.8) k/cumm RBC 4.25 L (4.50-6.00) m/cumm Hgb 10.4 L (13.5-17.5) g/dL Hct 33.5 L (40.0-50.0) % MCV 78.8 L (80-95) fL MCH 24.5 L (27.0-33.0) pg MCHC 31.0 L (32.0-36.0) g/dL RDW 17.7 H (11.8-14.1) % Absolute Neutrophils 10.79 H (1.2-6.7) k/cumm Absolute Lymphocytes 0.71 L (1.2-3.4) k/cumm Potassium 5.6 H D (3.5-5.1) mmol/L BUN 50 H (7-18) mg/dL Creatinine 2.64 H D (0.70-1.30) mg/dL Glucose 200 H (70-100) mg/dL C-Reactive Protein 1.60 H (0.0-0.3) mg/dL Vital Signs Temperature 36.0 C L 05/02/18 07:50 Temperature Source Tympanic 05/02/18 07:50 Pulse 65 05/02/18 07:50 Pulse Rhythm Regular 05/02/18 08:25 Pulse 63 04/29/18 10:00 Respiratory Rate 22 05/02/18 07:50 Respiratory Effort Non-Labored 05/02/18 08:25 Respiratory Depth Normal 05/02/18 08:25 Respiratory Pattern Normal 05/02/18 08:25 Blood Pressure 177/80 H 05/02/18 07:50 Blood Pressure Mean 102 04/29/18 19:26 Blood Pressure Position Supine 04/29/18 00:05 Pulse Oximetry 96 05/02/18 07:50 Oxygen Delivery Method Room Air 05/02/18 07:50 Oxygen Flow Rate 0 05/02/18 07:50 Pain Level 4 05/02/18 12:49 Comment 05/02/18 07:50 Intake & Output 05/01/18 05/02/18 05/02/18 23:59 11:59 23:59 Intake Total 1030 / 1820 1400 / 1420 20 / 1420 Output Total 1600 / 3950 2250 / 2800 550 / 2800 Balance -570 / -2130 -850 / -1380 -530 / -1380 Weight 102.6 kg Intake: IV 20 / 20 Oral 1020 / 1740 1400 / 1400 Output: Drainage 250 / 650 400 / 650 right abdomen 250 / 650 400 / 650 Urine 700 / 1875 1100 / 1100 Stool 900 / 1750 900 / 1050 150 / 1050 Other: Urine Color Yellow Yellow Urine Appearance Clear Clear Urine Odor Normal Voiding Methods Urinal Urinal Laboratory Results WBC 12.53 k/cumm (4.4-10.8) H 05/02/18 06:25 RBC 4.25 m/cumm (4.50-6.00) L 05/02/18 06:25 Hgb 10.4 g/dL (13.5-17.5) L 05/02/18 06:25 Hct 33.5 % (40.0-50.0) L 05/02/18 06:25 MCV 78.8 fL (80-95) L 05/02/18 06:25 MCH 24.5 pg (27.0-33.0) L 05/02/18 06:25 MCHC 31.0 g/dL (32.0-36.0) L 05/02/18 06:25 RDW 17.7 % (11.8-14.1) H 05/02/18 06:25 Plt Count 258 x1000/uL (130-400) 05/02/18 06:25 MPV 9.9 fL (8.0-11.0) 05/02/18 06:25 Immature Gran % 1.2 05/02/18 06:25 Neutrophils % 86.1 05/02/18 06:25 Band Neutrophils % 1.0 % 04/27/18 07:11 Lymphocytes % 5.7 05/02/18 06:25 Monocytes % 5.0 05/02/18 06:25 Eosinophils % 1.9 05/02/18 06:25 Basophils % 0.1 05/02/18 06:25 Myelocytes % 2.0 % 04/27/18 07:11 Absolute Neutrophils 10.79 k/cumm (1.2-6.7) H 05/02/18 06:25 Absolute Lymphocytes 0.71 k/cumm (1.2-3.4) L 05/02/18 06:25 Absolute Monocytes 0.63 k/cumm (0.11-0.7) 05/02/18 06:25 Absolute Eosinophils 0.24 k/cumm (0.0-0.7) 05/02/18 06:25 Absolute Basophils 0.01 k/cumm (0.0-0.2) 05/02/18 06:25 Nucleated RBCs 1 /100WBC 04/26/18 07:30 Differential Comment Rbc morph reviewed 04/29/18 06:40 RBC Morphology See below 04/29/18 06:40 Polychromasia Present 04/29/18 06:40 Hypochromasia 2+ 04/29/18 06:40 Poikilocytosis 2+ 04/29/18 06:40 Basophilic Stippling Present 04/29/18 06:40 Anisocytosis 2+ 04/29/18 06:40 Microcytosis 2+ 04/29/18 06:40 Ovalocytes 2+ 04/29/18 06:40 Sathya Cells 2+ 04/26/18 07:30 Acanthocytes (Spur) 1+ 04/26/18 07:30 PT 9.6 sec (9.3-11.0) 04/26/18 07:30 INR 1.0 (0.9-1.1) 04/26/18 07:30 Sample Site Left radial 04/27/18 13:00 pCO2 44 mmHg (34-47) 04/27/18 13:00 pO2 62 mmHg (83-108) L 04/27/18 13:00 O2 Saturation 93 % (94-98) L 04/27/18 13:00 ABG pH 7.36 (7.35-7.45) 04/27/18 13:00 ABG HCO3 24 mmol/L (22-28) 04/27/18 13:00 ABG Total CO2 23 mmol/L (22-29) 04/27/18 13:00 ABG Base Excess -1.1 mmol/L (-3-3) 04/27/18 13:00 VBG pH 7.34 (7.32-7.43) 04/28/18 06:55 VBG pCO2 48 mm/Hg (34-47) H 04/28/18 06:55 VBG pO2 104 mm/Hg (28-44) H 04/28/18 06:55 VBG HCO3 26 mmol/L (22-28) 04/28/18 06:55 VBG Total CO2 24 mmol/L (22-29) 04/28/18 06:55 VBG O2 Saturation 99 % (70-80) H 04/28/18 06:55 VBG Base Excess 0.1 mmol/L (-3-3) 04/28/18 06:55 FiO2 21 % 04/27/18 13:00 Sodium 136 mmol/L (136-145) 05/02/18 06:25 Potassium 5.6 mmol/L (3.5-5.1) H D 05/02/18 06:25 Chloride 104 mmol/L (98-107) 05/02/18 06:25 Carbon Dioxide 26.6 mmol/L (21.0-32.0) 05/02/18 06:25 Anion Gap 5.4 mmol/L (3-11) 05/02/18 06:25 BUN 50 mg/dL (7-18) H 05/02/18 06:25 Creatinine 2.64 mg/dL (0.70-1.30) H D 05/02/18 06:25 Estimated GFR/1.73 m2 24.95 (mL/min/1.73m2) 05/02/18 06:25 Glucose 200 mg/dL (70-100) H 05/02/18 06:25 Lactate 0.5 mmol/l (0.6-1.4) L 04/26/18 07:30 Calcium 8.6 mg/dL (8.5-10.1) 05/02/18 06:25 Magnesium 2.0 mg/dL (1.8-2.4) 05/02/18 06:25 Total Bilirubin 0.2 mg/dL (0.2-1.0) 04/26/18 07:30 AST 9 U/L (15-37) L 04/26/18 07:30 ALT 15 U/L (12-78) 04/26/18 07:30 Alkaline Phosphatase 145 U/L (46-116) H 04/26/18 07:30 Ammonia 24 umol/L (11-32) 04/25/18 20:43 Troponin I 0.06 ng/mL (0.00-0.06) 04/26/18 07:30 C-Reactive Protein 1.60 mg/dL (0.0-0.3) H 05/02/18 06:25 Total Protein 6.1 g/dL (6.4-8.2) L 04/26/18 07:30 Albumin 2.5 g/dL (3.4-5.0) L 04/26/18 07:30 TSH 0.37 uIU/mL (0.358-3.74) 04/26/18 07:30 Urine Color Yellow (Yellow) 04/26/18 11:15 Urine Clarity Clear 04/26/18 11:15 Urine pH 6.0 (5-8) 04/26/18 11:15 Ur Specific [place] 1.015 (1.005-1.025) 04/26/18 11:15 Urine Protein 100 mg/dL (Negative) H 04/26/18 11:15 Urine Ketones Negative mg/dL (Negative) 04/26/18 11:15 Urine Blood Moderate (Negative) H 04/26/18 11:15 Urine Nitrite Negative (Negative) 04/26/18 11:15 Urine Bilirubin Negative (Negative) 04/26/18 11:15 Urine Urobilinogen 0.2 EU/dL (Up TO 0.2) 04/26/18 11:15 Ur Leukocyte Esterase Small (Negative) H 04/26/18 11:15 Urine RBC Not Applicable 04/26/18 11:15 Urine WBC >50 HPF (0-5) 04/26/18 11:15 Ur Epithelial Cells Not Applicable 04/26/18 11:15 Urine Crystals Not Applicable 04/26/18 11:15 Urine Bacteria Not Applicable 04/26/18 11:15 Urine Casts 0-2 coarse granular LPF (Negative) 04/26/18 01:15 Urine Mucus Not Applicable 04/26/18 11:15 Urine Other Few yeast (Negative) 04/26/18 11:15 Ur Culture Indicated? Yes 04/26/18 11:15 Urine Glucose Negative mg/dL (Negative) 04/26/18 11:15 Vancomycin Trough 23.3 ug/mL (10.0-20.0) H* 04/28/18 18:20 Acetaminophen 5 ug/mL (10-30) L 04/25/18 20:43 Ethyl Alcohol < 3.0 mg/dL (<3) 04/25/18 20:43 C.difficile Tox Ab Neut Cancelled 04/26/18 10:13
--- NOTE | 2018-05-02 14:47 | NUR.NOTE ---
Nursing Note: 1415: pt experiencing emesis at this time, undigested food noted. pt states he ate too much too quick and my belly hurt before I layed down. pt declines to take 1400 medications as I don't think I can keep them down right now.
[2018-05-02 16:36] VITALS: BP 177/84; PULSE 55; RESP 18; TEMP 36.4; O2SAT 94
[2018-05-02] MEDS: Normal Saline 500 ML IV (17:01)
[2018-05-02 20:54] VITALS: BP 182/91; PULSE 65; RESP 18; TEMP 36.3; O2SAT 94
[2018-05-02 21:39] LABS: Vancomycin, Trough 26.6 ug/mL (10.0-20.0)
[2018-05-02] MEDS: Lidocaine 5% Patch 1 PATCH TP (21:40)
[2018-05-02] MEDS: Normal Saline 1,000 ML 125 ML IV (21:40)
[2018-05-02 23:22] VITALS: BP 161/82; PULSE 77; RESP 20; TEMP 36.7; O2SAT 93
[2018-05-03] VITALS (9 sets, daily range): BP systolic 127–163; BP diastolic 64–80; PULSE 56–80; RESP 13–20; TEMP 36–37.2; O2SAT 87–95
[2018-05-03] MEDS: oxyCODONE 5 MG TAB PO ×3 (01:28→21:19)
[2018-05-03] MEDS: Normal Saline Flush 10 ML SYR IVP ×2 (04:29→18:46)
[2018-05-03] MEDS: Hydrocortisone SOD SUC. 100 MG VIAL 25 MG IVP (04:29)
[2018-05-03] MEDS: Levothyroxine 75 MCG TAB 37.5 MCG PO (06:49)
[2018-05-03] MEDS: Normal Saline 1,000 ML 125 ML IV (07:03)
[2018-05-03 07:40] LABS: HCT 37.1 % (40.0-50.0); HGB 11.4 g/dL (13.5-17.5); Mean Corp. HGB Concentration 30.7 g/dL (32.0-36.0); Mean Corpuscular Hemoglobin 24.4 pg (27.0-33.0); Mean Corpuscular Volume 79.4 fL (80-95); Mean Platelet Volume 10.1 fL (8.0-11.0); Platelet Count 288 x1000/uL (130-400); RBC 4.67 m/cumm (4.50-6.00); RBC Distribution Width 17.7 % (11.8-14.1); White Blood Cell Count 22.38 k/cumm (4.4-10.8)
[2018-05-03 08:00] LABS: ALT 23 U/L (12-78); AST 15 U/L (15-37); Albumin 2.5 g/dL (3.4-5.0); Alkaline Phosphatase 161 U/L (46-116); Anion Gap 7.7 mmol/L (3-11); BUN 54 mg/dL (7-18); Bilirubin, Total 0.4 mg/dL (0.2-1.0); CO2 22.3 mmol/L (21.0-32.0); CREATININE 2.34 mg/dL (0.70-1.30); Calcium 8.7 mg/dL (8.5-10.1); Chloride 106 mmol/L (98-107); Estimated GFR 28.67 (mL/min/1.73m2); Glucose 188 mg/dL (70-100); Sodium 136 mmol/L (136-145); Total Protein 6.4 g/dL (6.4-8.2)
[2018-05-03] MEDS: Terazosin 2 MG CAP 4 MG PO ×2 (08:46→19:53)
[2018-05-03] MEDS: Gabapentin 300 MG CAP PO ×2 (08:46→19:55)
[2018-05-03] MEDS: carBAMazepine 100 MG CHEW PO ×2 (08:46→19:54)
[2018-05-03] MEDS: Magnesium Chloride 64 MG TABCR PO ×2 (08:46→19:53)
[2018-05-03] MEDS: Venlafaxine 37.5 MG CAPCR 75 MG PO (08:46)
[2018-05-03] MEDS: Omeprazole 20 MG CAPCR PO (08:46)
[2018-05-03] MEDS: Ferrous Sulfate 325 MG TAB PO ×2 (08:46→19:53)
[2018-05-03] MEDS: Folic Acid 1 MG TAB PO (08:46)
[2018-05-03] MEDS: Lactobacillus Acidophilus CAP 1 CAP PO ×2 (08:46→19:53)
[2018-05-03] MEDS: Ascorbic Acid 500 MG TAB PO ×2 (08:47→19:54)
[2018-05-03] MEDS: Metoprolol CR 25 MG TABCR PO (08:47)
[2018-05-03] MEDS: cloNIDine 0.1 MG TAB 0.3 MG PO ×2 (08:48→19:52)
[2018-05-03] MEDS: Multivitamin TAB 1 TAB PO (08:48)
[2018-05-03] MEDS: Aspirin E.C. 81 MG TABEC PO ×2 (08:48→19:54)
[2018-05-03] MEDS: amLODIPine 5 MG TAB 10 MG PO (08:48)
[2018-05-03] MEDS: Cyanocobalamin 500 MCG TAB 1000 MCG PO (08:48)
[2018-05-03] MEDS: hydrALAZINE 10 MG TAB PO ×2 (08:48→19:54)
[2018-05-03] MEDS: Heparin 5,000 UNITS/ML VIAL 5000 UNITS SC ×2 (08:48→19:55)
[2018-05-03] MEDS: Patch Removal 1 EACH TP (08:49)
[2018-05-03] MEDS: Ketoconazole 2% CREAM 15 GM TUBE TP (08:49)
[2018-05-03] MEDS: Normal Saline Flush 10 ML SYR 20 ML IVP (08:49)
[2018-05-03] MEDS: Insulin Glargine 300 UNITS/3 ML PEN 40 UNITS SC (09:14)
[2018-05-03] MEDS: Dextrose 50%-Water 25 GM/50 ML SYR IVP (09:15)
[2018-05-03] MEDS: Insulin REGULAR-Human 100 UNITS/ML UNIT 10 UNITS IV (09:16)
[2018-05-03] MEDS: Hydrocortisone SOD SUC. 100 MG VIAL 50 MG IVP ×2 (10:38→18:46)
[2018-05-03] MEDS: Breeza Beverage 473 ML BTL PO (11:22)
[2018-05-03] MEDS: Omnipaque 350 MG/ML 50 ML BTL IJ (11:23)
--- NOTE | 2018-05-03 11:40 | DI.CT_ITS ---
SYMPTOM/DIAGNOSIS: INCREASING WBC, CRACKLES LT BASE, H/O CHOLECYSTOTOMY CHEST AND ABDOMEN CT: CHEST: CT scan of the chest and abdomen was performed without intravenous or oral contrast material. Comparison is made with 04/25/18. There is atherosclerosis of the thoracic aorta. Heart size is within normal limits. No significant pericardial effusion is seen. Calcified lymph nodes are seen in the mediastinum consistent with prior granulomatous disease. No significant pleural effusion or pneumothorax is identified. No significant thoracic adenopathy is seen. There is patient motion artifact. There are areas of consolidation involving the left lower lobe and infiltrates in the left lingula and the right lower lobe. These areas may represent atelectasis or pneumonia. There are old healed bilateral rib fractures. The appearance of the right shoulder is unchanged compared to the prior examination and appears chronic. IMPRESSION: Areas of consolidation involving the left lobe lobe but opacities are also seen in the right lower and left lingula. These areas may represent atelectasis or pneumonia. ABDOMEN: Lack of IV contrast does limit evaluation of the abdominal organs. There is motion artifact. The liver appears unchanged. There is a cholecystotomy tube again in place. Gallstones are present. No biliary ductal dilatation is seen. The unenhanced spleen, pancreas, adrenal glands and kidneys are unremarkable. The bowel shows no evidence of obstruction. There is oral contrast seen within the visualized portions of the small bowel and colon. The abdominal aorta is of normal caliber. No significant abdominal ascites, adenopathy or pneumoperitoneum is seen. No acute osseous abnormalities are identified. IMPRESSION: No acute abnormality. Stable cholecystotomy tube and cholelithiasis.
[2018-05-03] MEDS: Insulin Aspart 300 UNITS/3 ML PEN SC ×5 (11:43→21:11)
--- NOTE | 2018-05-03 11:43 | PT.INTREAT ---
Date of service: 05/03/18 Time of Service: 11:44 PT Notes Inpatient Physical Therapy Treatment Note [facility] Date: 05/03/18 PRECAUTIONS:Fall, Contact SUBJECTIVE: Brendan reports that he is not feeling well today. OBJECTIVE: Per nsg, pt has elevated potassium levels and has been vomiting. PAIN: No c/o pain BED MOBILITY/TRANSFERS Supine-sit: S Sit-supine: S Sit-stand:SBA Stand-sit: SBA GAIT Assistive Device: FWW Weight bearing: Full Assist: SBA Distance: 5' ASSESSMENT: Patient tolerated limited participation in PT today due to feeling ill. He would benefit from continued gait and transfer training as well as strengthening for improved mobility and activity tolerance. PLAN: Continue with PT's POC TREATMENT CODE/TIME: 10 minutes; [id number]
--- NOTE | 2018-05-03 12:06 | DI.VRAD_ITS ---
EXAM: CT Chest Without Contrast EXAM DATE/TIME: 05/03/2018 11:25 AM CLINICAL HISTORY: 58 years old, male; Signs and symptoms; Other: Increasing wbc, crackles left base, cholecystotomy TECHNIQUE: Axial computed tomography images of the chest without intravenous contrast. All CT scans at this facility use at least one of these dose optimization techniques: automated exposure control; mA and/or kV adjustment per patient size (includes targeted exams where dose is matched to clinical indication); or iterative reconstruction. Coronal and sagittal reformatted images were created and reviewed. COMPARISON: CT chest/abd/pel wo 05/01/2018 11:30 AM FINDINGS: Lungs: Consolidation of the left lower lobe. Opacities in the right lower lobe. Findings may reflect atelectasis or pneumonia. Pleural space: Normal. No pneumothorax. No pleural effusion. Heart: Normal. No cardiomegaly. No pericardial effusion. Aorta: Normal. No aortic aneurysm. Lymph nodes: Multiple calcified mediastinal nodes may reflect prior granulomatous disease Bones/joints: Subluxation of the right glenohumeral joint (2:6). Was present on the prior study. Healed rib fractures bilaterally. Chronic Unhealed fracture right coracoid process Soft tissues: Unremarkable. IMPRESSION: 1. Subluxation of the right glenohumeral joint (2:6). Was present on the prior study. 2. Consolidation of the left lower lobe. Opacities in the right lower lobe. Findings may reflect atelectasis or pneumonia. EXAM: CT Abdomen Without Contrast EXAM DATE/TIME: 05/03/2018 11:25 AM CLINICAL HISTORY: 58 years old, male; Signs and symptoms; Other: Increasing wbc, crackles left base, cholecystotomy TECHNIQUE: Axial computed tomography images of the abdomen without contrast. All CT scans at this facility use at least one of these dose optimization techniques: automated exposure control; mA and/or kV adjustment per patient size (includes targeted exams where dose is matched to clinical indication); or iterative reconstruction. COMPARISON: CT chest/abd/pel wo 05/01/2018 11:30 AM FINDINGS: Liver: Normal. No mass. Gallbladder and bile ducts: Stable cholecystectomy catheter terminates in the gallbladder. Multiple gallstones in the gallbladder. Pancreas: Pancreatic atrophy Spleen: Normal. No splenomegaly. Adrenals: Normal. No mass. Kidneys and ureters: Kidneys are stable. Stomach and bowel: The stomach is decompressed. Intraperitoneal space: Unremarkable. No free air. No significant fluid collection. Bones/joints: Osseous structures are stable Soft tissues: Unremarkable. Vasculature: Unremarkable. No abdominal aortic aneurysm. Lymph nodes: Small retroperitoneal nodes IMPRESSION: Stable cholecystectomy catheter terminates in the gallbladder. Multiple gallstones in the gallbladder. Dictated and Authenticated by: Mike Whitlock MD. Ordering:MCKAYLA Abbott MD
[2018-05-03 13:10] LABS: Potassium 6.6 mmol/L (3.5-5.1)
[2018-05-03] MEDS: Insulin REGULAR-Human 100 UNITS/ML UNIT IV (13:30)
--- NOTE | 2018-05-03 13:40 | PGE_ITS ---
Date of Service Date of service: 05/03/18 Time of Service: 13:29 Assessment and Plan (1) MRSA bacteremia: Current visit: Yes Status: Acute The original source of his bacteremia is still obscure to me. He has several skin lesions that could have been the entry point. It is possible that he has seeded the hardware in his right forearm. Alternatively, he could have had smoldering infection in the hardware. However, the white blood cell scan did not high like this area and so it may have no bearing on his current infection. Continues on vancomycin, white count going up but it is unclear if this is due to this infection or a separate problem. I am more suspicious of the latter. I am repeating blood cultures. Antibiotic addition as noted below. Continue vancomycin and adjust dose based on trough. Hemodynamically he is stable at this time. Order has been placed for transesophageal echo, not sure if it will be done tomorrow or later in the week. (2) Healthcare-associated pneumonia: Current visit: Yes Status: Acute Minimal cough and minimal sputum but does have pulmonary findings on exam and CT showing infiltrate left lower lung field more than right. I am going to treat this as healthcare associated pneumonia and add Pipracil and tazobactam. (3) Insufficiency, adrenal: Current visit: Yes Status: Acute Overall feeling worse, potassium is up. I am putting him back on 50 mg of IV hydrocortisone every 8 hours and monitor clinical response. (4) Hyperkalemia: Current visit: No Status: Resolved Hyperkalemia perhaps due to adrenal insufficiency? Renal insufficiency also contributing. No significant ECG changes. He has been bolused with insulin with a modest decrease in his potassium. He has yet to receive oral potassium binding resin but will do so this afternoon. Recheck potassium level this evening. Continue to monitor on telemetry. (5) Right elbow pain: Current visit: Yes Status: Acute Have a non-irritable joint exam, mild inflammatory changes of the skin. Unclear if hardware has been seated with MRSA. If inflammatory markers are not trending down with the addition of Pipracil and tazobactam, consider orthopedic consultation at [facility] as to whether or not something should be done to evaluate further the potential of infected hardware. (6) CKD (chronic kidney disease): Current visit: No Status: Chronic Slight improvement in creatinine, no change in BUN compared to yesterday. IV fluids have been started given decreased oral intake. Continue to monitor labs and urine output. Outpatient furosemide remains on hold. (7) Poorly controlled type 2 diabetes mellitus with circulatory disorder: Current visit: No Status: Chronic Oral intake has decreased thus I cut down on his long-acting insulin. He is received 2 boluses of regular insulin to help with hyperkalemia. I have also increased his hydrocortisone and so his blood sugars are likely going to be yo- yoing a bit over the next 12-24 hours. Continue to monitor and adjust short and long-acting insulin depending upon oral intake and blood sugar results. (8) Hypertension: Current visit: Yes Status: Chronic Blood pressures are bouncing around a bit, no change in his current regimen. (9) DVT prophylaxis: Current visit: Yes Status: Acute SQ heparin as no further bleeding reported Continue TEDs and SCD's (10) Discharge planning issues: Current visit: Yes Status: Acute Remains a full code. Disposition to be determined based upon clinical course. Still anticipating transesophageal echo sometime this week. (11) Rash: Current visit: Yes Status: Acute Clinically this appears to be mild folliculitis. It does not look like a drug rash to me. He has no symptoms of pruritus or pain. Monitor with current antibiotics. Subjective Interval history since last seen: Patient has had nausea yesterday afternoon and last evening with repeated episodes of nonbilious emesis. He attributed this to eating too fast. He has not been febrile. His blood pressures have been bouncing around but he is not been hypotensive. He has not been hypoxic although his room air oximetry has drifted down slightly. He states he has a little bit of a cough, nonproductive. He denies any chest pain. He still has pain in both arms, right elbow perhaps a little bit more. He denies any tooth pain although has horrible dentition. No abdominal pain. Denies any dysuria. He has some mild irritation from his presacral superficial erosions. He does not have any pain from the small ulcers on his toes (basically insensate feet). His blood sugars have been trending down with his decreased oral intake. His potassium level was found to be elevated this morning at 7. He received IV regular insulin and dextrose with repeat potassium 6.6 and will be getting another dose of insulin. His blood sugars have not gone lower than 180 thus far today. His renal function labs are perhaps slightly better compared to yesterday. He had a CT scan of chest and abdomen today because of his continued elevated white count and overall worsening course. CT notable for left lower lobe infiltrate. Abdominal CT shows no abscess or changes from earlier scan. Exam Narrative Exam Narrative: He is awake and talkative, no apparent distress. He has multiple broken teeth but no gingival erythema or swelling. No oral thrush or ulcerations. Neck supple no cervical nodes or JVD lungs have slight slightly diminished breath sounds and crackles at the left base better aeration in the upper lung barnard no wheezing. I do not hear any heart murmur S3 or S4. Active bowel sounds with no abdominal tenderness. Cholecystotomy tube without any drainage around it or redness. Ostomy in the right lower abdomen with brown stool, no redness around the site. He has 2 small stage II ulcerations in the upper sacral area. The superficial erosions on the right great toe and dorsal aspect of the fifth toe are clean with no erythema and the erosion on the top of his left fourth toe is clean with no erythema or swelling. No pitting edema in the lower extremities. He has a follicular rash?erythematous papules and few tiny pustules scattered on his torso, principally his back. Objective Objective Clinical Data: Abnormal lab results CT scan of chest showing left lower lobe infiltrate. CT scan of abdomen with postsurgical changes but nothing new compared to his past scan and no evidence of abscess with oral but no IV contrast. 05/02/18 05/03/18 05/03/18 Range/Units 20:55 06:57 06:57 WBC 22.38 H D (4.4-10.8) k/cumm Hgb 11.4 L (13.5-17.5) g/dL Hct 37.1 L (40.0-50.0) % MCV 79.4 L (80-95) fL MCH 24.4 L (27.0-33.0) pg MCHC 30.7 L (32.0-36.0) g/dL RDW 17.7 H (11.8-14.1) % Potassium 7.0 H* (3.5-5.1) mmol/L BUN 54 H (7-18) mg/dL Creatinine 2.34 H (0.70-1.30) mg/dL Glucose 188 H (70-100) mg/dL Alkaline Phosphatase 161 H (46-116) U/L Albumin 2.5 L (3.4-5.0) g/dL Vancomycin Trough 26.6 H* (10.0-20.0) ug/mL 05/03/18 Range/Units 12:48 WBC (4.4-10.8) k/cumm Hgb (13.5-17.5) g/dL Hct (40.0-50.0) % MCV (80-95) fL MCH (27.0-33.0) pg MCHC (32.0-36.0) g/dL RDW (11.8-14.1) % Potassium 6.6 H* (3.5-5.1) mmol/L BUN (7-18) mg/dL Creatinine (0.70-1.30) mg/dL Glucose (70-100) mg/dL Alkaline Phosphatase (46-116) U/L Albumin (3.4-5.0) g/dL Vancomycin Trough (10.0-20.0) ug/mL Vital Signs Temperature 36.2 C L 05/03/18 11:45 Temperature Source Tympanic 05/03/18 11:45 Pulse 60 05/03/18 11:45 Pulse Rhythm Regular 05/03/18 04:00 Pulse 63 04/29/18 10:00 Respiratory Rate 16 05/03/18 11:45 Respiratory Effort 05/03/18 04:00 Respiratory Depth Normal 05/03/18 04:00 Respiratory Pattern Normal 05/03/18 04:00 Blood Pressure 127/70 05/03/18 11:45 Blood Pressure Mean 102 04/29/18 19:26 Blood Pressure Position Supine 04/29/18 00:05 Pulse Oximetry 91 L 05/03/18 11:45 Oxygen Delivery Method Room Air 05/03/18 11:45 Oxygen Flow Rate 0 05/03/18 11:45 Pain Level 5 05/03/18 08:46 Comment 05/03/18 03:55 Intake & Output 05/02/18 05/03/18 05/03/18 22:59 11:59 23:59 Intake Total Output Total Balance Weight Intake: IV Oral Output: Drainage right abdomen Urine Stool Emesis Other: Urine Color Urine Appearance Urine Odor Comment Emesis Description Gastric Occult Blood Voiding Methods Laboratory Results WBC 22.38 k/cumm (4.4-10.8) H D 05/03/18 06:57 RBC 4.67 m/cumm (4.50-6.00) 05/03/18 06:57 Hgb 11.4 g/dL (13.5-17.5) L 05/03/18 06:57 Hct 37.1 % (40.0-50.0) L 05/03/18 06:57 MCV 79.4 fL (80-95) L 05/03/18 06:57 MCH 24.4 pg (27.0-33.0) L 05/03/18 06:57 MCHC 30.7 g/dL (32.0-36.0) L 05/03/18 06:57 RDW 17.7 % (11.8-14.1) H 05/03/18 06:57 Plt Count 288 x1000/uL (130-400) 05/03/18 06:57 MPV 10.1 fL (8.0-11.0) 05/03/18 06:57 Immature Gran % 1.2 05/02/18 06:25 Neutrophils % 86.1 05/02/18 06:25 Band Neutrophils % 1.0 % 04/27/18 07:11 Lymphocytes % 5.7 05/02/18 06:25 Monocytes % 5.0 05/02/18 06:25 Eosinophils % 1.9 05/02/18 06:25 Basophils % 0.1 05/02/18 06:25 Myelocytes % 2.0 % 04/27/18 07:11 Absolute Neutrophils 10.79 k/cumm (1.2-6.7) H 05/02/18 06:25 Absolute Lymphocytes 0.71 k/cumm (1.2-3.4) L 05/02/18 06:25 Absolute Monocytes 0.63 k/cumm (0.11-0.7) 05/02/18 06:25 Absolute Eosinophils 0.24 k/cumm (0.0-0.7) 05/02/18 06:25 Absolute Basophils 0.01 k/cumm (0.0-0.2) 05/02/18 06:25 Nucleated RBCs 1 /100WBC 04/26/18 07:30 Differential Comment Rbc morph reviewed 04/29/18 06:40 RBC Morphology See below 04/29/18 06:40 Polychromasia Present 04/29/18 06:40 Hypochromasia 2+ 04/29/18 06:40 Poikilocytosis 2+ 04/29/18 06:40 Basophilic Stippling Present 04/29/18 06:40 Anisocytosis 2+ 04/29/18 06:40 Microcytosis 2+ 04/29/18 06:40 Ovalocytes 2+ 04/29/18 06:40 Sathya Cells 2+ 04/26/18 07:30 Acanthocytes (Spur) 1+ 04/26/18 07:30 PT 9.6 sec (9.3-11.0) 04/26/18 07:30 INR 1.0 (0.9-1.1) 04/26/18 07:30 Sample Site Left radial 04/27/18 13:00 pCO2 44 mmHg (34-47) 04/27/18 13:00 pO2 62 mmHg (83-108) L 04/27/18 13:00 O2 Saturation 93 % (94-98) L 04/27/18 13:00 ABG pH 7.36 (7.35-7.45) 04/27/18 13:00 ABG HCO3 24 mmol/L (22-28) 04/27/18 13:00 ABG Total CO2 23 mmol/L (22-29) 04/27/18 13:00 ABG Base Excess -1.1 mmol/L (-3-3) 04/27/18 13:00 VBG pH 7.34 (7.32-7.43) 04/28/18 06:55 VBG pCO2 48 mm/Hg (34-47) H 04/28/18 06:55 VBG pO2 104 mm/Hg (28-44) H 04/28/18 06:55 VBG HCO3 26 mmol/L (22-28) 04/28/18 06:55 VBG Total CO2 24 mmol/L (22-29) 04/28/18 06:55 VBG O2 Saturation 99 % (70-80) H 04/28/18 06:55 VBG Base Excess 0.1 mmol/L (-3-3) 04/28/18 06:55 FiO2 21 % 04/27/18 13:00 Sodium 136 mmol/L (136-145) 05/03/18 06:57 Potassium 6.6 mmol/L (3.5-5.1) H* 05/03/18 12:48 Chloride 106 mmol/L (98-107) 05/03/18 06:57 Carbon Dioxide 22.3 mmol/L (21.0-32.0) 05/03/18 06:57 Anion Gap 7.7 mmol/L (3-11) 05/03/18 06:57 BUN 54 mg/dL (7-18) H 05/03/18 06:57 Creatinine 2.34 mg/dL (0.70-1.30) H 05/03/18 06:57 Estimated GFR/1.73 m2 28.67 (mL/min/1.73m2) 05/03/18 06:57 Glucose 188 mg/dL (70-100) H 05/03/18 06:57 Lactate 0.5 mmol/l (0.6-1.4) L 04/26/18 07:30 Calcium 8.7 mg/dL (8.5-10.1) 05/03/18 06:57 Magnesium 2.0 mg/dL (1.8-2.4) 05/02/18 06:25 Total Bilirubin 0.4 mg/dL (0.2-1.0) 05/03/18 06:57 AST 15 U/L (15-37) 05/03/18 06:57 ALT 23 U/L (12-78) 05/03/18 06:57 Alkaline Phosphatase 161 U/L (46-116) H 05/03/18 06:57 Ammonia 24 umol/L (11-32) 04/25/18 20:43 Troponin I 0.06 ng/mL (0.00-0.06) 04/26/18 07:30 C-Reactive Protein 1.60 mg/dL (0.0-0.3) H 05/02/18 06:25 Total Protein 6.4 g/dL (6.4-8.2) 05/03/18 06:57 Albumin 2.5 g/dL (3.4-5.0) L 05/03/18 06:57 TSH 0.37 uIU/mL (0.358-3.74) 04/26/18 07:30 Urine Color Yellow (Yellow) 04/26/18 11:15 Urine Clarity Clear 04/26/18 11:15 Urine pH 6.0 (5-8) 04/26/18 11:15 Ur Specific [place] 1.015 (1.005-1.025) 04/26/18 11:15 Urine Protein 100 mg/dL (Negative) H 04/26/18 11:15 Urine Ketones Negative mg/dL (Negative) 04/26/18 11:15 Urine Blood Moderate (Negative) H 04/26/18 11:15 Urine Nitrite Negative (Negative) 04/26/18 11:15 Urine Bilirubin Negative (Negative) 04/26/18 11:15 Urine Urobilinogen 0.2 EU/dL (Up TO 0.2) 04/26/18 11:15 Ur Leukocyte Esterase Small (Negative) H 04/26/18 11:15 Urine RBC Not Applicable 04/26/18 11:15 Urine WBC >50 HPF (0-5) 04/26/18 11:15 Ur Epithelial Cells Not Applicable 04/26/18 11:15 Urine Crystals Not Applicable 04/26/18 11:15 Urine Bacteria Not Applicable 04/26/18 11:15 Urine Casts 0-2 coarse granular LPF (Negative) 04/26/18 01:15 Urine Mucus Not Applicable 04/26/18 11:15 Urine Other Few yeast (Negative) 04/26/18 11:15 Ur Culture Indicated? Yes 04/26/18 11:15 Urine Glucose Negative mg/dL (Negative) 04/26/18 11:15 Vancomycin Trough 26.6 ug/mL (10.0-20.0) H* 05/02/18 20:55 Acetaminophen 5 ug/mL (10-30) L 04/25/18 20:43 Ethyl Alcohol < 3.0 mg/dL (<3) 04/25/18 20:43 C.difficile Tox Ab Neut Cancelled 04/26/18 10:13
[2018-05-03 13:59] LABS: Bilirubin Negative (Negative); Blood Negative (Negative); Clarity Clear; Glucose Negative (Negative); Ketones Negative (Negative); Leukocyte Esterase Small (Negative); Nitrite Negative (Negative); Urobilinogen 0.2 EU/dL (Up TO 0.2)
[2018-05-03 14:09] LABS: Epithelial Cells Negative HPF (Negative); Other Cells Rare Renal (Negative); RBC Negative (0-2); WBC >50 HPF (0-5)
[2018-05-03 14:10] LABS: Bacteria Few HPF (Negative); C & S Indicated? C&S Done As Ordered; Casts 0-2 Coarse Granular LPF (Negative); Crystals Negative HPF (Negative); Mucus Negative (Negative)
[2018-05-03] MEDS: PIPERACILLIN/TAZO 3.375 GM in Normal Saline 50 ML IVPB ×2 (14:18→21:09)
--- NOTE | 2018-05-03 16:34 | PDOC.CMPRO ---
Care Management Progress Note S/O: Brendan continues to worsen clinically; presenting with critical level of potassium, and increased WBC he continues to be closely monitored at this time. Anticipate delay of discharge. CM will continue to follow. A: 58 year old male admitted to [facility] 04/26/18 for UTI P: Brendan will return to [facility] once medically cleared. He will transport via [facility] W/C Van when ready.
--- NOTE | 2018-05-03 16:46 | CMPROGNOTE_ITS ---
Care Management Progress Note S/O: Brendan continues to worsen clinically; presenting with critical level of potassium, and increased WBC he continues to be closely monitored at this time. Anticipate delay of discharge. CM will continue to follow. A: 58 year old male admitted to [facility] 04/26/18 for UTI P: Brendan will return to [facility] once medically cleared. He will transport via [facility] W/C Van when ready.
[2018-05-03 18:15] LABS: Potassium 6.4 mmol/L (3.5-5.1)
[2018-05-03] MEDS: Lidocaine 5% Patch 1 PATCH TP (19:50)
[2018-05-03] MEDS: traZODone 50 MG TAB PO (21:12)
[2018-05-03] MEDS: Melatonin 3 MG TAB 9 MG PO (21:12)
[2018-05-03] MEDS: risperiDONE 1 MG TAB 3 MG PO (21:13)
[2018-05-04] VITALS (13 sets, daily range): BP systolic 116–159; BP diastolic 62–77; PULSE 50–71; RESP 15–20; TEMP 35.8–36.3; O2SAT 89–97
[2018-05-04] MEDS: Normal Saline 1,000 ML 125 ML IV ×2 (01:55→18:35)
[2018-05-04] MEDS: Normal Saline Flush 10 ML SYR IVP (01:57)
[2018-05-04] MEDS: Hydrocortisone SOD SUC. 100 MG VIAL 50 MG IVP ×3 (01:57→18:34)
[2018-05-04] MEDS: PIPERACILLIN/TAZO 3.375 GM in Normal Saline 50 ML IVPB ×3 (06:40→22:25)
[2018-05-04] MEDS: Levothyroxine 75 MCG TAB 37.5 MCG PO (06:41)
[2018-05-04 07:17] LABS: HCT 34.4 % (40.0-50.0); HGB 10.4 g/dL (13.5-17.5); Mean Corp. HGB Concentration 30.2 g/dL (32.0-36.0); Mean Corpuscular Hemoglobin 24.2 pg (27.0-33.0); Mean Corpuscular Volume 80.2 fL (80-95); Mean Platelet Volume 10.9 fL (8.0-11.0); Platelet Count 288 x1000/uL (130-400); RBC 4.29 m/cumm (4.50-6.00); RBC Distribution Width 17.8 % (11.8-14.1); White Blood Cell Count 12.71 k/cumm (4.4-10.8)
[2018-05-04 07:32] LABS: Anion Gap 6.3 mmol/L (3-11); BUN 52 mg/dL (7-18); C-Reactive Protein 6.04 mg/dL (0.0-0.3); CO2 20.7 mmol/L (21.0-32.0); CREATININE 2.76 mg/dL (0.70-1.30); Calcium 8.6 mg/dL (8.5-10.1); Chloride 107 mmol/L (98-107); Glucose 189 mg/dL (70-100); Sodium 134 mmol/L (136-145)
[2018-05-04 07:37] LABS: Potassium 7.5 mmol/L (3.5-5.1)
[2018-05-04] MEDS: Insulin REGULAR-Human 100 UNITS/ML UNIT 10 UNITS IV (07:58)
[2018-05-04] MEDS: Dextrose 50%-Water 25 GM/50 ML SYR IVP (07:59)
[2018-05-04] MEDS: cloNIDine 0.1 MG TAB 0.3 MG PO ×3 (08:06→20:22)
[2018-05-04] MEDS: Terazosin 2 MG CAP 4 MG PO ×2 (08:06→20:22)
[2018-05-04] MEDS: Omeprazole 20 MG CAPCR PO (08:06)
[2018-05-04] MEDS: Magnesium Chloride 64 MG TABCR PO ×2 (08:06→20:22)
[2018-05-04] MEDS: Ferrous Sulfate 325 MG TAB PO ×2 (08:07→20:23)
[2018-05-04] MEDS: Gabapentin 300 MG CAP PO ×3 (08:07→20:23)
[2018-05-04] MEDS: Multivitamin TAB 1 TAB PO (08:07)
[2018-05-04] MEDS: Folic Acid 1 MG TAB PO (08:07)
[2018-05-04] MEDS: carBAMazepine 100 MG CHEW PO ×3 (08:07→20:23)
[2018-05-04] MEDS: Ascorbic Acid 500 MG TAB PO ×2 (08:07→20:23)
[2018-05-04] MEDS: Aspirin E.C. 81 MG TABEC PO ×2 (08:07→20:23)
[2018-05-04] MEDS: Metoprolol CR 25 MG TABCR PO (08:07)
[2018-05-04] MEDS: Cyanocobalamin 500 MCG TAB 1000 MCG PO (08:07)
[2018-05-04] MEDS: Venlafaxine 37.5 MG CAPCR 75 MG PO (08:07)
[2018-05-04] MEDS: hydrALAZINE 10 MG TAB PO ×3 (08:07→20:23)
[2018-05-04] MEDS: amLODIPine 5 MG TAB 10 MG PO (08:07)
[2018-05-04] MEDS: Lactobacillus Acidophilus CAP 1 CAP PO ×3 (08:07→20:22)
[2018-05-04] MEDS: Patch Removal 1 EACH TP (08:08)
[2018-05-04] MEDS: Heparin 5,000 UNITS/ML VIAL 5000 UNITS SC ×2 (08:18→20:21)
[2018-05-04] MEDS: Insulin Aspart 300 UNITS/3 ML PEN SC ×6 (08:22→22:18)
[2018-05-04] MEDS: Insulin Glargine 300 UNITS/3 ML PEN 60 UNITS SC (08:23)
--- NOTE | 2018-05-04 09:21 | PDOC.CMPRO ---
- If Service Date Differs Date of service: 05/04/18 Time of Service: 09:21 Care Management Progress Note S/O: Brendan is lying in bed when this telegraphic typewriter operator visits, he is pleasant and receptive to discussion. CM spoke with Isela, [facility], to alert her that Brendan is not medically ready for DC at this time. He was scheduled to potentially have a KELLEE today, however this has been postponed at this time. He continues on IVF, IV antibiotics, and IV steroids. A: 58 year old male admitted to [facility] 04/26/18 for UTI P: Brendan will return to [facility] once medically cleared. He will transport via [facility] W/C Van when ready.
[2018-05-04] MEDS: Normal Saline Flush 10 ML SYR 20 ML IVP ×2 (09:32→18:34)
[2018-05-04] MEDS: Ketoconazole 2% CREAM 15 GM TUBE TP (09:40)
--- NOTE | 2018-05-04 10:07 | OT.INNT ---
Date of service: 05/04/18 Time of Service: 10:07 Occupational Therapy Notes 05/04/18 OT went to see pt who was lying in bed with his eyes closed. Pt was unable to make eye contact with OT and when OT asked pt if he wanted to perform ADLs pt denied with a verbal no and then did not respond to OT. OT will check in with pt tomorrow. Nursing reports that pt has not been feeling well today. Suzanne Javier OTR/[facility]
--- NOTE | 2018-05-04 11:57 | PT.INNT ---
Date of service: 05/04/18 Time of Service: 11:57 PT Notes 05/04/18 Patient refused PT session, reporting that he is not feeling well. He requested that I come back this afternoon, in hopes that he will feel good enough to participate in PT at that time.
[2018-05-04 12:16] LABS: Potassium 6.2 mmol/L (3.5-5.1)
[2018-05-04] MEDS: Furosemide 40 MG/4 ML VIAL IVP (14:25)
[2018-05-04 15:07] LABS: ALT 20 U/L (12-78); AST 11 U/L (15-37); Bilirubin, Total 0.3 mg/dL (0.2-1.0)
--- NOTE | 2018-05-04 15:23 | PT.INTREAT ---
Date of service: 05/04/18 Time of Service: 15:23 PT Notes Inpatient Physical Therapy Treatment Note [facility] Date: 05/04/18 PRECAUTIONS: Fall, Contact SUBJECTIVE: Brendan pleasantly states I'm not feeling too bad, I'm just too weak to get up and walk right now. OBJECTIVE: PAIN: No c/o pain BED MOBILITY/TRANSFERS/GAIT: Refused THEREX: Patient completed a LE strengthening program, in a supine position, as per flow sheet. ASSESSMENT: Patient toelrated session well without complaint. He would benefit from continued gait and transfer training as well as strengthening for improved mobility and activity tolerance. PLAN: Continue with PT's POC TREATMENT CODE/TIME: 15 minutes; [id number]
--- NOTE | 2018-05-04 17:27 | PGE_ITS ---
Date of Service Date of service: 05/04/18 Time of Service: 11:30 Assessment and Plan (1) MRSA bacteremia: Current visit: Yes Status: Acute Source of his bacteremia still unknown. White blood cell count down slightly but CRP up, not sure of significance. New heart murmur today. I have ordered a trans-thoracic echocardiogram as logistically we cannot get transesophageal echocardiogram today. Blood cultures were repeated yesterday, no growth thus far. Continue vancomycin renally dosed. (2) Healthcare-associated pneumonia: Current visit: Yes Status: Acute Still has some pulmonary findings on exam but minimal symptoms. Continue Pipracil and tazobactam. Perhaps this is the cause of his increased CRP? (3) Insufficiency, adrenal: Current visit: Yes Status: Acute Continues on 50 mg of hydrocortisone every 8. Blood pressure acceptable. Potassium still high. Treatment as below. (4) Hyperkalemia: Current visit: No Status: Resolved Other than adrenal insufficiency, cause not clear. Current medications none known to cause hyperkalemia. No ECG changes. He is received insulin and glucose again. He received a dose of Vivelle Julita yesterday, Kayexalate this morning and will get another dose this afternoon with follow-up potassium. (5) Right elbow pain: Current visit: Yes Status: Acute Exam does not suggest septic arthritis. His cellulitis of the arm looks a little better. Continue antibiotics as above. (6) CKD (chronic kidney disease): Current visit: No Status: Chronic Slight increase in creatinine. He is receiving IV fluids. Continue to monitor. (7) Poorly controlled type 2 diabetes mellitus with circulatory disorder: Current visit: No Status: Chronic Variable oral intake, makes it difficult to adjust insulin. Also has received boluses of glucose with regular insulin to help treat his hyperkalemia. Glargine dose increased back to 60 units. Continue to monitor blood sugars and adjust short acting and long-acting insulin depending on results. (8) Hypertension: Current visit: Yes Status: Chronic Blood pressures are bouncing around a bit, no change in his current regimen. Pulse rate sometimes slow but no symptoms clearly referrable to this. I am not backing down on his beta-lia dose at this point. (9) DVT prophylaxis: Current visit: Yes Status: Acute SQ heparin as no further bleeding reported Continue TEDs and SCD's (10) Discharge planning issues: Current visit: Yes Status: Acute Remains a full code. Case discussed with Dr. Batista, hospitalist at [facility] given my inability to find a cause for his bacteremia, worsening renal function, persistent hyperkalemia and need for subspecialty input. Dr. Batista agrees he is a suitable candidate for transfer but there are no beds. He requests a call back tomorrow for an update on status and reassessment of bed availability at [facility]. (11) Rash: Current visit: Yes Status: Acute Still looks like folliculitis, no symptoms referrable to it. Monitor with current antibiotics. Subjective Interval history since last seen: A little more lethargic this morning when he was yesterday but to the nursing staff who knows him well, seems to be within the range she fluctuates. He reports anorexia but no abdominal pain and no further vomiting. He denies shortness of breath or sputum production. Complains of pain in both shoulder areas which he thinks is chronic. No increased pain in the right elbow. His potassium went down to 6.4 last night but rebounded to 7.5 this morning. Surprisingly his ECG did not show any changes, no peak T waves or change in any of the intervals. He received insulin and glucose again and a dose of Kayexalate with subsequent potassium down to 6.2. He is going to get another dose of Kayexalate this afternoon and follow-up potassium level. His white count is down somewhat but his CRP is going up. His creatinine is also getting a little worse. He has had reasonable urine output. His blood sugars have been running high with administration of insulin and glucose as well as adjustments in his Lantus because of variable oral intake. His blood pressures have been in the 130-140 range and his pulse rates have been in the 50s-60s. He has SaO2 on room air of 90-97%. Exam Narrative Exam Narrative: He is a little somnolent but arousable and his responses are appropriate. Lungs continue to have some crackles and diminished breath sounds at the left base. Heart is regular and I am hearing a 1/6 to 2/6 systolic ejection murmur at the right upper sternal border, no diastolic murmur. No S3 or S4. Active bowel sounds soft abdomen no tenderness. No erythema around his cholecystostomy tube. He has compression stockings on his legs with no edema. Chronic pigmentary changes on his shins. There is no erythema around the superficial erosions right fifth toe dorsum, medial side of the right great toe or under the third metatarsal head of his left foot. PICC site without erythema. Chronic deformities from his rheumatoid arthritis of his hands. No acutely inflamed joints of the upper or lower extremities. Mild to minimal erythema right forearm near the elbow with no pain on passive flexion of his right elbow, fixed flexion contracture which is chronic. Objective Objective Clinical Data: Abnormal lab results 05/03/18 05/04/18 05/04/18 Range/Units 18:00 06:35 06:35 WBC 12.71 H D (4.4-10.8) k/cumm RBC 4.29 L (4.50-6.00) m/cumm Hgb 10.4 L (13.5-17.5) g/dL Hct 34.4 L (40.0-50.0) % MCH 24.2 L (27.0-33.0) pg MCHC 30.2 L (32.0-36.0) g/dL RDW 17.8 H (11.8-14.1) % Sodium 134 L (136-145) mmol/L Potassium 6.4 H* 7.5 H* (3.5-5.1) mmol/L Carbon Dioxide 20.7 L (21.0-32.0) mmol/L BUN 52 H (7-18) mg/dL Creatinine 2.76 H (0.70-1.30) mg/dL Glucose 189 H (70-100) mg/dL AST (15-37) U/L C-Reactive Protein 6.04 H (0.0-0.3) mg/dL 05/04/18 05/04/18 Range/Units 11:25 14:30 WBC (4.4-10.8) k/cumm RBC (4.50-6.00) m/cumm Hgb (13.5-17.5) g/dL Hct (40.0-50.0) % MCH (27.0-33.0) pg MCHC (32.0-36.0) g/dL RDW (11.8-14.1) % Sodium (136-145) mmol/L Potassium 6.2 H* (3.5-5.1) mmol/L Carbon Dioxide (21.0-32.0) mmol/L BUN (7-18) mg/dL Creatinine (0.70-1.30) mg/dL Glucose (70-100) mg/dL AST 11 L (15-37) U/L C-Reactive Protein (0.0-0.3) mg/dL Vital Signs Temperature 36.3 C L 05/04/18 16:55 Temperature Source Tympanic 05/04/18 16:55 Pulse 53 L 05/04/18 16:55 Pulse Rhythm Regular 05/04/18 09:47 Pulse 63 04/29/18 10:00 Respiratory Rate 20 05/04/18 16:55 Respiratory Effort Non-Labored 05/04/18 09:47 Respiratory Depth Normal 05/04/18 09:47 Respiratory Pattern Normal 05/04/18 09:47 Blood Pressure 147/74 H 05/04/18 16:55 Blood Pressure Mean 102 04/29/18 19:26 Blood Pressure Position Supine 04/29/18 00:05 Pulse Oximetry 97 05/04/18 16:55 Oxygen Delivery Method Room Air 05/04/18 16:55 Oxygen Flow Rate 0 05/04/18 16:55 Pain Level 5 05/03/18 21:19 Comment 05/03/18 03:55 Intake & Output 05/03/18 05/04/18 05/04/18 23:59 11:59 23:59 Intake Total 1652.083 / 2712.083 733.75 / 1333.75 600 / 1333.75 Output Total 1175 / 3925 825 / 1775 950 / 1775 Balance 477.083 / -1212.917 -91.25 / -441.25 -350 / -441.25 Weight 101.7 kg Intake: IV 1172.083 / 2172.083 733.75 / 733.75 Oral 480 / 540 0 / 600 600 / 600 Output: Drainage 175 / 625 100 / 400 300 / 400 right abdomen 175 / 625 100 / 400 300 / 400 Urine 350 / 1050 475 / 975 500 / 975 Stool 650 / 2250 250 / 400 150 / 400 Other: Urine Color Light Cat Yellow Yellow Urine Appearance Clear Cloudy Urine Odor Normal Voiding Methods Urinal Urinal Urinal Laboratory Results WBC 12.71 k/cumm (4.4-10.8) H D 05/04/18 06:35 RBC 4.29 m/cumm (4.50-6.00) L 05/04/18 06:35 Hgb 10.4 g/dL (13.5-17.5) L 05/04/18 06:35 Hct 34.4 % (40.0-50.0) L 05/04/18 06:35 MCV 80.2 fL (80-95) 05/04/18 06:35 MCH 24.2 pg (27.0-33.0) L 05/04/18 06:35 MCHC 30.2 g/dL (32.0-36.0) L 05/04/18 06:35 RDW 17.8 % (11.8-14.1) H 05/04/18 06:35 Plt Count 288 x1000/uL (130-400) 05/04/18 06:35 MPV 10.9 fL (8.0-11.0) 05/04/18 06:35 Immature Gran % 1.2 05/02/18 06:25 Neutrophils % 86.1 05/02/18 06:25 Band Neutrophils % 1.0 % 04/27/18 07:11 Lymphocytes % 5.7 05/02/18 06:25 Monocytes % 5.0 05/02/18 06:25 Eosinophils % 1.9 05/02/18 06:25 Basophils % 0.1 05/02/18 06:25 Myelocytes % 2.0 % 04/27/18 07:11 Absolute Neutrophils 10.79 k/cumm (1.2-6.7) H 05/02/18 06:25 Absolute Lymphocytes 0.71 k/cumm (1.2-3.4) L 05/02/18 06:25 Absolute Monocytes 0.63 k/cumm (0.11-0.7) 05/02/18 06:25 Absolute Eosinophils 0.24 k/cumm (0.0-0.7) 05/02/18 06:25 Absolute Basophils 0.01 k/cumm (0.0-0.2) 05/02/18 06:25 Nucleated RBCs 1 /100WBC 04/26/18 07:30 Differential Comment Rbc morph reviewed 04/29/18 06:40 RBC Morphology See below 04/29/18 06:40 Polychromasia Present 04/29/18 06:40 Hypochromasia 2+ 04/29/18 06:40 Poikilocytosis 2+ 04/29/18 06:40 Basophilic Stippling Present 04/29/18 06:40 Anisocytosis 2+ 04/29/18 06:40 Microcytosis 2+ 04/29/18 06:40 Ovalocytes 2+ 04/29/18 06:40 Sathya Cells 2+ 04/26/18 07:30 Acanthocytes (Spur) 1+ 04/26/18 07:30 PT 9.6 sec (9.3-11.0) 04/26/18 07:30 INR 1.0 (0.9-1.1) 04/26/18 07:30 Sample Site Left radial 04/27/18 13:00 pCO2 44 mmHg (34-47) 04/27/18 13:00 pO2 62 mmHg (83-108) L 04/27/18 13:00 O2 Saturation 93 % (94-98) L 04/27/18 13:00 ABG pH 7.36 (7.35-7.45) 04/27/18 13:00 ABG HCO3 24 mmol/L (22-28) 04/27/18 13:00 ABG Total CO2 23 mmol/L (22-29) 04/27/18 13:00 ABG Base Excess -1.1 mmol/L (-3-3) 04/27/18 13:00 VBG pH 7.34 (7.32-7.43) 04/28/18 06:55 VBG pCO2 48 mm/Hg (34-47) H 04/28/18 06:55 VBG pO2 104 mm/Hg (28-44) H 04/28/18 06:55 VBG HCO3 26 mmol/L (22-28) 04/28/18 06:55 VBG Total CO2 24 mmol/L (22-29) 04/28/18 06:55 VBG O2 Saturation 99 % (70-80) H 04/28/18 06:55 VBG Base Excess 0.1 mmol/L (-3-3) 04/28/18 06:55 FiO2 21 % 04/27/18 13:00 Sodium 134 mmol/L (136-145) L 05/04/18 06:35 Potassium 6.2 mmol/L (3.5-5.1) H* 05/04/18 11:25 Chloride 107 mmol/L (98-107) 05/04/18 06:35 Carbon Dioxide 20.7 mmol/L (21.0-32.0) L 05/04/18 06:35 Anion Gap 6.3 mmol/L (3-11) 05/04/18 06:35 BUN 52 mg/dL (7-18) H 05/04/18 06:35 Creatinine 2.76 mg/dL (0.70-1.30) H 05/04/18 06:35 Estimated GFR/1.73 m2 23.70 (mL/min/1.73m2) 05/04/18 06:35 Glucose 189 mg/dL (70-100) H 05/04/18 06:35 Lactate 0.5 mmol/l (0.6-1.4) L 04/26/18 07:30 Calcium 8.6 mg/dL (8.5-10.1) 05/04/18 06:35 Magnesium 2.0 mg/dL (1.8-2.4) 05/02/18 06:25 Total Bilirubin 0.3 mg/dL (0.2-1.0) 05/04/18 14:30 AST 11 U/L (15-37) L 05/04/18 14:30 ALT 20 U/L (12-78) 05/04/18 14:30 Alkaline Phosphatase 161 U/L (46-116) H 05/03/18 06:57 Ammonia 24 umol/L (11-32) 04/25/18 20:43 Troponin I 0.06 ng/mL (0.00-0.06) 04/26/18 07:30 C-Reactive Protein 6.04 mg/dL (0.0-0.3) H 05/04/18 06:35 Total Protein 6.4 g/dL (6.4-8.2) 05/03/18 06:57 Albumin 2.5 g/dL (3.4-5.0) L 05/03/18 06:57 TSH 0.37 uIU/mL (0.358-3.74) 04/26/18 07:30 Urine Color Yellow (Yellow) 05/03/18 13:47 Urine Clarity Clear 05/03/18 13:47 Urine pH 6.0 (5-8) 05/03/18 13:47 Ur Specific [place] 1.020 (1.005-1.025) 05/03/18 13:47 Urine Protein 100 mg/dL (Negative) H 05/03/18 13:47 Urine Ketones Negative mg/dL (Negative) 05/03/18 13:47 Urine Blood Negative (Negative) 05/03/18 13:47 Urine Nitrite Negative (Negative) 05/03/18 13:47 Urine Bilirubin Negative (Negative) 05/03/18 13:47 Urine Urobilinogen 0.2 EU/dL (Up TO 0.2) 05/03/18 13:47 Ur Leukocyte Esterase Small (Negative) H 05/03/18 13:47 Urine RBC Negative (0-2) 05/03/18 13:47 Urine WBC >50 HPF (0-5) 05/03/18 13:47 Ur Epithelial Cells Negative HPF (Negative) 05/03/18 13:47 Urine Crystals Negative HPF (Negative) 05/03/18 13:47 Urine Bacteria Few HPF (Negative) 05/03/18 13:47 Urine Casts 0-2 coarse granular LPF (Negative) 05/03/18 13:47 Urine Mucus Negative (Negative) 05/03/18 13:47 Urine Other Rare renal (Negative) 05/03/18 13:47 Ur Culture Indicated? C&s done as ordered 05/03/18 13:47 Urine Glucose Negative mg/dL (Negative) 05/03/18 13:47 Vancomycin Trough 26.6 ug/mL (10.0-20.0) H* 05/02/18 20:55 Acetaminophen 5 ug/mL (10-30) L 04/25/18 20:43 Ethyl Alcohol < 3.0 mg/dL (<3) 04/25/18 20:43 C.difficile Tox Ab Neut Cancelled 04/26/18 10:13
[2018-05-04] MEDS: Lidocaine 5% Patch 1 PATCH TP (20:21)
[2018-05-04 20:30] LABS: Potassium 4.9 mmol/L (3.5-5.1)
[2018-05-04] MEDS: traZODone 50 MG TAB PO (22:17)
[2018-05-04] MEDS: risperiDONE 1 MG TAB 3 MG PO (22:17)
[2018-05-04] MEDS: Melatonin 3 MG TAB 9 MG PO (22:17)
[2018-05-05] VITALS (12 sets, daily range): BP systolic 118–172; BP diastolic 67–79; PULSE 56–77; RESP 18–22; TEMP 36–37.1; O2SAT 94–98
[2018-05-05] MEDS: Normal Saline Flush 10 ML SYR IVP ×2 (02:39→07:08)
[2018-05-05] MEDS: oxyCODONE 5 MG TAB PO (02:39)
[2018-05-05] MEDS: Hydrocortisone SOD SUC. 100 MG VIAL 50 MG IVP ×3 (02:39→17:38)
[2018-05-05] MEDS: PIPERACILLIN/TAZO 3.375 GM in Normal Saline 50 ML IVPB ×2 (07:07→15:19)
[2018-05-05] MEDS: Normal Saline 1,000 ML 125 ML IV ×2 (07:07→22:00)
[2018-05-05] MEDS: Levothyroxine 75 MCG TAB 37.5 MCG PO (07:08)
[2018-05-05 07:47] LABS: HCT 31.8 % (40.0-50.0); HGB 9.7 g/dL (13.5-17.5); Mean Corp. HGB Concentration 30.5 g/dL (32.0-36.0); Mean Corpuscular Hemoglobin 24.3 pg (27.0-33.0); Mean Corpuscular Volume 79.7 fL (80-95); Mean Platelet Volume 10.1 fL (8.0-11.0); Platelet Count 267 x1000/uL (130-400); RBC 3.99 m/cumm (4.50-6.00); RBC Distribution Width 17.6 % (11.8-14.1); White Blood Cell Count 12.52 k/cumm (4.4-10.8)
[2018-05-05 07:57] LABS: Anion Gap 9.6 mmol/L (3-11); BUN 49 mg/dL (7-18); CO2 20.4 mmol/L (21.0-32.0); CREATININE 2.68 mg/dL (0.70-1.30); Calcium 8.2 mg/dL (8.5-10.1); Chloride 105 mmol/L (98-107); Estimated GFR 24.52 (mL/min/1.73m2); Glucose 273 mg/dL (70-100); Potassium 4.7 mmol/L (3.5-5.1); Sodium 135 mmol/L (136-145)
[2018-05-05] MEDS: Insulin Glargine 300 UNITS/3 ML PEN 60 UNITS SC (08:35)
[2018-05-05] MEDS: Insulin Aspart 300 UNITS/3 ML PEN SC ×7 (08:36→22:37)
[2018-05-05] MEDS: carBAMazepine 100 MG CHEW PO ×3 (08:37→19:17)
[2018-05-05] MEDS: Magnesium Chloride 64 MG TABCR PO ×2 (08:37→19:17)
[2018-05-05] MEDS: Metoprolol CR 25 MG TABCR PO (08:37)
[2018-05-05] MEDS: Lactobacillus Acidophilus CAP 1 CAP PO ×3 (08:37→19:17)
[2018-05-05] MEDS: Heparin 5,000 UNITS/ML VIAL 5000 UNITS SC ×2 (08:37→19:16)
[2018-05-05] MEDS: Terazosin 2 MG CAP 4 MG PO ×2 (08:38→19:16)
[2018-05-05] MEDS: Multivitamin TAB 1 TAB PO (08:38)
[2018-05-05] MEDS: Cyanocobalamin 500 MCG TAB 1000 MCG PO (08:38)
[2018-05-05] MEDS: Gabapentin 300 MG CAP PO ×3 (08:38→19:17)
[2018-05-05] MEDS: Omeprazole 20 MG CAPCR PO (08:38)
[2018-05-05] MEDS: cloNIDine 0.1 MG TAB 0.3 MG PO ×3 (08:38→19:17)
[2018-05-05] MEDS: Ascorbic Acid 500 MG TAB PO ×2 (08:38→19:17)
[2018-05-05] MEDS: hydrALAZINE 10 MG TAB PO ×3 (08:38→19:17)
[2018-05-05] MEDS: hydrOXYzine HCL 25 MG TAB PO (08:38)
[2018-05-05] MEDS: Aspirin E.C. 81 MG TABEC PO ×2 (08:39→19:17)
[2018-05-05] MEDS: amLODIPine 5 MG TAB 10 MG PO (08:39)
[2018-05-05] MEDS: Folic Acid 1 MG TAB PO (08:39)
[2018-05-05] MEDS: Normal Saline Flush 10 ML SYR 20 ML IVP ×2 (08:39→19:16)
[2018-05-05] MEDS: Venlafaxine 37.5 MG CAPCR 75 MG PO (08:39)
[2018-05-05] MEDS: Ferrous Sulfate 325 MG TAB PO ×2 (08:39→19:17)
[2018-05-05] MEDS: Ketoconazole 2% CREAM 15 GM TUBE TP (08:40)
[2018-05-05] MEDS: Patch Removal 1 EACH TP (08:40)
--- NOTE | 2018-05-05 09:07 | MERGE_ITS ---
*[facility]* *[facility]* [address] [place] [address] Date of study: 05/05/2018 Transthoracic Echocardiography M-mode, complete 2D, complete spectral Doppler, and color Doppler *STUDY CONCLUSIONS* Impressions: Compared to the prior study, there has been no significant interval change. There are no typical features of vegetative endocarditis. Consider transesophageal echocardiography, if clinically indicated. Summary: 1. Left ventricle: The cavity size was normal. Wall thickness was increased in a pattern of moderate LVH. Systolic function was normal. The estimated ejection fraction was 60-65%. Wall motion was normal; there were no regional wall motion abnormalities. 2. Aortic valve: Valve area (VTI): 2.2cm^2. Valve area (Vmax): 2.3cm^2. Valve area (Vmean): 1.9cm^2. 3. Mitral valve: There was mild regurgitation. 4. Left atrium: The atrium was mildly dilated. 5. Right ventricle: The cavity size was normal. Wall thickness was normal. Systolic function was normal. 6. Pulmonic valve: Peak gradient (S): 9.6mm Hg. *PATIENT PRESENTATION* Height: 185.4cm ((73in) ) S/D Pressure: 172 / 75 Weight: 101.6kg ((223.5lb) ) BSA: 2.31m^2 Test start time: 09:45 AM. Test stop time: 10:20 AM. ORDERING Scar Gan MD REFERRING Scar Gan MD CONSULTING Anne Horowitz PERFORMING Unknown PERFORMING [facility] DIN[facility] ROOM MAID RT Randy Prajapati)(CT), RDCS *PROCEDURE DATA* Procedure information: The patient was identified by two identifiers. This study was interpreted by [facility]. Pertinent images and digital data are archived for permanent storage and are available for subsequent review. Comparison was made to the study of 05/09/2018. Study status: Routine. Transthoracic echocardiography. M-mode, complete 2D, complete spectral Doppler, and color Doppler. A Transthoracic Echocardiogram was performed. Scanning was performed from the parasternal, apical, subcostal, and suprasternal notch acoustic windows. Images were obtained using an [id number] cardiac ultrasound machine. Image quality was adequate. Study completion: The patient tolerated the procedure well. There were no complications. History: PMH: MRSA bacteremia, new murmur. *CARDIAC ANATOMY* Left ventricle: The cavity size was normal. Wall thickness was increased in a pattern of moderate LVH. Systolic function was normal. The estimated ejection fraction was 60-65%. Wall motion was normal; there were no regional wall motion abnormalities. Diastolic parameters were normal. Aortic valve: Trileaflet; normal thickness leaflets. Mobility was not restricted. Doppler: Transvalvular velocity was within the normal range. There was no stenosis. There was no significant regurgitation. VTI ratio of LVOT to aortic valve: 0.62. Valve area (VTI): 2.2cm^2. Indexed valve area (VTI): 1cm^2/m^2. Peak velocity ratio of LVOT to aortic valve: 0.64. Valve area (Vmax): 2.3cm^2. Indexed valve area (Vmax): 1cm^2/m^2. Mean velocity ratio of LVOT to aortic valve: 0.55. Valve area (Vmean): 1.9cm^2. Indexed valve area (Vmean): 0.8cm^2/m^2. Mean gradient (S): 11.1mm Hg. Peak gradient (S): 18.9mm Hg. Aorta: Aortic root: The aortic root was at upper normal limits. Ascending aorta: The ascending aorta was mildly dilated. Mitral valve: Structurally normal valve. Mobility was not restricted. Doppler: Transvalvular velocity was within the normal range. There was no evidence for stenosis. There was mild regurgitation. Valve area by pressure half-time: 3.5cm^2. Indexed valve area by pressure half-time: 1.5cm^2/m^2. Peak gradient (D): 3.7mm Hg. Left atrium: The atrium was mildly dilated. Right ventricle: The cavity size was normal. Wall thickness was normal. Systolic function was normal. Pulmonic valve: Structurally normal valve. Doppler: Transvalvular velocity was within the normal range. There was no evidence for stenosis. There was no significant regurgitation. Peak gradient (S): 9.6mm Hg. Tricuspid valve: Structurally normal valve. Doppler: Transvalvular velocity was within the normal range. There was no evidence for stenosis. There was mild regurgitation. Pulmonary artery: Systolic pressure could not be accurately estimated. Right atrium: The atrium was normal in size. Pericardium: There was no pericardial effusion. Systemic veins: Inferior vena cava: Well visualized. The vessel was patent and normal in size. The respirophasic diameter changes were in the normal range (greater than or equal to 50%). Baseline ECG: Normal sinus rhythm. Measurements Left ventricle Value 04/29/2018 Reference LV ID, ED, PLAX 5.2 cm 5.0 3.5 - 6.0 LV ID, ES, PLAX 3.2 cm 3.4 2.1 - 4.0 LV PW thickness, ED, PLAX 1.4 cm 1.5 LV end-diastolic volume, 133 ml 134 1-p A2C LV ejection fraction, 1-p 56 % 70 A2C LV end-diastolic volume, 121 ml 141 1-p A4C LV ejection fraction, 1-p 53 % 59 A4C LV e', lateral 0.106 m/sec 0.084 LV E/e', lateral 9 10 LV e', medial 0.103 m/sec 0.078 LV E/e', medial 9 11 LV e', average 0.104 m/sec 0.081 LV E/e', average 9 11 Ventricular septum Value 04/29/2018 Reference IVS thickness, ED, PLAX 1.5 cm 1.6 LVOT Value 04/29/2018 Reference LVOT ID, A-P 2.1 cm 2.1 LVOT area 3.5 cm^2 3.4 LVOT peak velocity, S 1.39 m/sec 1.53 LVOT mean velocity, S 0.89 m/sec 1.12 LVOT VTI, S 26.8 cm 39.0 LVOT peak gradient, S 7.7 mm Hg 9.4 LVOT mean gradient, S 3.7 mm Hg 5.7 Stroke volume (SV), LVOT 95 ml 132 DP Stroke index (SV/bsa), 41 ml/m^2 55 LVOT DP Aortic valve Value 04/29/2018 Reference Aortic valve peak 2.2 m/sec 2.4 velocity, S Aortic valve mean 1.61 m/sec 1.5 velocity, S Aortic valve VTI, S 43.0 cm 45.0 Aortic mean gradient, S 11.1 mm Hg 10.6 Aortic peak gradient, S 18.9 mm Hg 23 VTI ratio, LVOT/AV 0.62 0.87 Aortic valve area, VTI 2.2 cm^2 2.9 Velocity ratio, peak, 0.64 0.64 LVOT/AV Aortic valve area, peak 2.3 cm^2 2.2 velocity Velocity ratio, mean, 0.55 0.75 LVOT/AV Aortic valve area, mean 1.9 cm^2 2.5 velocity Aortic valve area/bsa, 0.8 cm^2/m^2 1.1 mean velocity Aorta Value 04/29/2018 Reference Aortic root ID, ED 3.6 cm 3.5 Ascending aorta ID, A-P, S 3.7 cm 3.3 Left atrium Value 04/29/2018 Reference LA ID, A-P, ES 3.6 cm 4.1 LA ID/bsa, A-P 1.6 cm/m^2 1.7 <=2.2 LA area, ES, A4C (H) 28.2 cm^2 26.6 8.8 - 23.4 LA/aortic root ratio 1.01 1.16 Mitral valve Value 04/29/2018 Reference Mitral E-wave peak 0.97 m/sec 0.87 velocity Mitral A-wave peak 0.84 m/sec 0.88 velocity Mitral deceleration time 219 ms 234 150 - 230 Mitral pressure half-time 63 ms 68 Mitral peak gradient, D 3.7 mm Hg 3 Mitral E/A ratio, peak 1.15 0.99 Mitral valve area, PHT, DP 3.5 cm^2 3.2 Tricuspid valve Value 04/29/2018 Reference Tricuspid regurg peak 3.5 m/sec 2.9 velocity Tricuspid peak RV-RA 47.9 mm Hg 34.7 gradient Right atrium Value 04/29/2018 Reference RA area, ES, A4C (H) 22.8 cm^2 20.3 8.3 - 19.5 Pulmonic valve Value 04/29/2018 Reference Pulmonic peak gradient, S 9.6 mm Hg Legend: (L) and (H) jamie values outside specified reference range. I have personally reviewed the images and have reviewed and edited the reported findings. Electronically signed by Serg Bill 05/05/2018 12:14
[2018-05-05 09:34] LABS: Haptoglobin 204 mg/dL (32-197)
--- NOTE | 2018-05-05 11:50 | PT.INTREAT ---
Date of service: 05/05/18 Time of Service: 11:51 PT Notes Inpatient Physical Therapy Treatment Note [facility] Date: 05/05/18 PRECAUTIONS: Fall SUBJECTIVE: Brendan states that he is feeling better today compared to yesterday. He is agreeable to participate in PT. OBJECTIVE: PAIN: No c/o pain BED MOBILITY/TRANSFERS Supine-sit: S Sit-stand: SBA Stand-sit: SBA GAIT Assistive Device: FWW Weight bearing: Full Assist: SBA Distance: 80' Deviation: Fatigue, wheelchair follow ASSESSMENT: Patient tolerated a progression in gait distance with FWW and SBA with wheelchair follow. Patient c/o increased fatigue with gait training. He would benefit from continued gait and transfer training for improved mobility and activity tolerance. PLAN: Continue with PT's POC TREATMENT CODE/TIME: 15 minutes; [id number]
--- NOTE | 2018-05-05 14:46 | CMPROGNOTE_ITS ---
- If Service Date Differs Date of service: 05/05/18 Time of Service: 14:45 Care Management Progress Note S/O: Brendan is lying in bed this morning. He is scheduled for an Echo today. Brendan continues to receive IV antibiotics att his time and remains on tele. no change in DC plan. A: 58 year old male admitted to [facility] 04/26/18 for UTI P: Brendan will return to [facility] once medically cleared. He will transport via [facility] Van when ready.
--- NOTE | 2018-05-05 15:36 | W.INDIABCONS ---
Date of service: 05/05/18 Time of Service: 15:37 Diabetes Inpatient Consult DESCRIPTION/ASSESSMENT: Appreciate diabetes consult for Mr. Corley who is hospitalized with multiple health concerns now with MRSA bacteremia. [facility] and more recently inpatient. A1c 7.5 02/10. BMI 30 Blood sugars consistently in 200s with 60u basal insulin, insulin:carb at 1 unit covers 5 grams and resistant correction. Brendan has been hungry during this visit requesting more carbohydrate with his meals. Given he receives insulin for carbohydrate, his food has been increased to up to 75 grams carbohydrate although at this time he is not receiving more than 60 grams. He has also been NPO and clear liquids over the past few days. He was recently prescribed hydrocortisone which may have an impact on blood sugar. It appears he is not receiving adequate insulin to manage his blood sugars close to less than 180mg/dl. INTERVENTION: Suggest an increase in basal insulin given his overall elevated blood sugars and the fact that his insulin correction is mostly keeping him steady. If this does not improve his glycemic control, would suggest increasing insulin:carb ratio to 1 unit for 3 grams carbohydrate. Given that he does not manage his diabetes outside the hospital and he has had diabetes self management in the past, no educational intervention warranted at this time. PLAN: Suggest increase in basal to 70units nightly. Will follow blood sugars and suggest intensifying his insulin:carb to 1:3 if blood sugars not improved to goal of 180mg/dl. Time Spent in Nutritional Counseling and Treatment: 0 face to face
--- NOTE | 2018-05-05 15:39 | PT.INNT ---
Date of service: 05/05/18 Time of Service: 15:39 PT Notes 05/05/18 Patient refused afternoon PT session due to fatigue. Will attempt to resume PT services tomorrow morning.
--- NOTE | 2018-05-05 18:01 | PGE_ITS ---
Date of Service Date of service: 05/05/18 Time of Service: 17:53 Assessment and Plan (1) MRSA bacteremia: Current visit: Yes Status: Acute Positive blood cultures have now converted to negative blood cultures. Continue vancomycin. The source at this point appears most likely to be endocarditis. I discussed the case with Dr. Bill, feels he may not need a transesophageal echocardiogram at this point. Will review this with him again tomorrow. Plan at this point is to continue vancomycin for 6-week course. (2) Healthcare-associated pneumonia: Current visit: Yes Status: Acute On Zosyn for presumed H CAP. No further fevers or blood pressure insta bility. He is satting well on room air. His clinical exam is reassuring. We will stop the Zosyn and monitor. (3) Insufficiency, adrenal: Current visit: Yes Status: Acute We will switch him back over to oral steroids and begin steroid taper slowly. Monitor for vital sign instability as he is prone to adrenal insufficiency. (4) Hyperkalemia: Current visit: No Status: Resolved Potassium elevation has resolved. Continue to monitor electrolytes closely (5) Discharge planning issues: Current visit: Yes Status: Acute His condition has stabilized. He may be a candidate for continued IV antibiotic therapy at the [facility]. Continues as a full code. Continue to monitor in acute care status. Subjective Interval history since last seen: Brendan had a good day today. He had no respiratory difficulty. His appetite is back. He had no nausea or vomiting. His strength is improving, he states he walked to the nurses station and part way back today. He had no fever or chills today. Exam Narrative Exam Narrative: In general he is alert and cooperative and in no apparent distress. His lung sounds are generally clear on the right and left. Heart sounds are muffled with a 1/6 to 2/6 systolic murmur. His abdomen is quite markedly obese but overall nontender his ostomy has a lot of gas and appears to be functioning well. His lower extremities have purpuric changes with 2+ edema. There are no open sores or ulcerations. Overall appear to be adequately perfused. Neurologically he is alert and attentive, he knows my name and appears to be fully oriented. Objective Objective Clinical Data: Abnormal lab results 05/04/18 05/05/18 05/05/18 Range/Units 14:30 07:28 07:28 WBC 12.52 H (4.4-10.8) k/cumm RBC 3.99 L (4.50-6.00) m/cumm Hgb 9.7 L (13.5-17.5) g/dL Hct 31.8 L (40.0-50.0) % MCV 79.7 L (80-95) fL MCH 24.3 L (27.0-33.0) pg MCHC 30.5 L (32.0-36.0) g/dL RDW 17.6 H (11.8-14.1) % Haptoglobin 204 H (32-197) mg/dL Sodium 135 L (136-145) mmol/L Carbon Dioxide 20.4 L (21.0-32.0) mmol/L BUN 49 H (7-18) mg/dL Creatinine 2.68 H (0.70-1.30) mg/dL Glucose 273 H (70-100) mg/dL Calcium 8.2 L (8.5-10.1) mg/dL Vital Signs Temperature 37.1 C 05/05/18 17:04 Temperature Source Tympanic 05/05/18 17:04 Pulse 56 L 05/05/18 17:04 Pulse Rhythm Regular 05/05/18 08:30 Pulse 63 04/29/18 10:00 Respiratory Rate 18 05/05/18 17:04 Respiratory Effort Non-Labored 05/05/18 08:30 Respiratory Depth Normal 05/05/18 08:30 Respiratory Pattern Normal 05/05/18 08:30 Blood Pressure 154/74 H 05/05/18 17:04 Blood Pressure Mean 102 04/29/18 19:26 Blood Pressure Position Supine 04/29/18 00:05 Pulse Oximetry 94 L 05/05/18 17:04 Oxygen Delivery Method Room Air 05/05/18 17:04 Oxygen Flow Rate 0 05/05/18 17:04 Pain Level 4 05/05/18 07:35 Comment 05/03/18 03:55 Intake & Output 05/04/18 05/05/18 05/05/18 23:59 11:59 23:59 Intake Total 1256.25 / 1990.00 902.083 / 1142.083 240 / 1142.083 Output Total 1400 / 2225 1225 / 1425 200 / 1425 Balance -143.75 / -235.00 -322.917 / -282.917 40 / -282.917 Weight 103.7 kg Intake: IV 656.25 / 1390.00 902.083 / 902.083 Oral 600 / 600 240 / 240 Output: Drainage 350 / 450 200 / 200 right abdomen 350 / 450 200 / 200 Urine 700 / 1175 625 / 825 200 / 825 Stool 350 / 600 400 / 400 Other: Urine Color Yellow Yellow Yellow Urine Appearance Clear Clear Urine Odor Normal Normal Voiding Methods Urinal Urinal Urinal Laboratory Results WBC 12.52 k/cumm (4.4-10.8) H 05/05/18 07:28 RBC 3.99 m/cumm (4.50-6.00) L 05/05/18 07:28 Hgb 9.7 g/dL (13.5-17.5) L 05/05/18 07:28 Hct 31.8 % (40.0-50.0) L 05/05/18 07:28 MCV 79.7 fL (80-95) L 05/05/18 07:28 MCH 24.3 pg (27.0-33.0) L 05/05/18 07:28 MCHC 30.5 g/dL (32.0-36.0) L 05/05/18 07:28 RDW 17.6 % (11.8-14.1) H 05/05/18 07:28 Plt Count 267 x1000/uL (130-400) 05/05/18 07:28 MPV 10.1 fL (8.0-11.0) 05/05/18 07:28 Immature Gran % 1.2 05/02/18 06:25 Neutrophils % 86.1 05/02/18 06:25 Band Neutrophils % 1.0 % 04/27/18 07:11 Lymphocytes % 5.7 05/02/18 06:25 Monocytes % 5.0 05/02/18 06:25 Eosinophils % 1.9 05/02/18 06:25 Basophils % 0.1 05/02/18 06:25 Myelocytes % 2.0 % 04/27/18 07:11 Absolute Neutrophils 10.79 k/cumm (1.2-6.7) H 05/02/18 06:25 Absolute Lymphocytes 0.71 k/cumm (1.2-3.4) L 05/02/18 06:25 Absolute Monocytes 0.63 k/cumm (0.11-0.7) 05/02/18 06:25 Absolute Eosinophils 0.24 k/cumm (0.0-0.7) 05/02/18 06:25 Absolute Basophils 0.01 k/cumm (0.0-0.2) 05/02/18 06:25 Nucleated RBCs 1 /100WBC 04/26/18 07:30 Differential Comment Rbc morph reviewed 04/29/18 06:40 RBC Morphology See below 04/29/18 06:40 Polychromasia Present 04/29/18 06:40 Hypochromasia 2+ 04/29/18 06:40 Poikilocytosis 2+ 04/29/18 06:40 Basophilic Stippling Present 04/29/18 06:40 Anisocytosis 2+ 04/29/18 06:40 Microcytosis 2+ 04/29/18 06:40 Ovalocytes 2+ 04/29/18 06:40 Seeley Cells 2+ 04/26/18 07:30 Acanthocytes (Spur) 1+ 04/26/18 07:30 Haptoglobin 204 mg/dL (32-197) H 05/04/18 14:30 PT 9.6 sec (9.3-11.0) 04/26/18 07:30 INR 1.0 (0.9-1.1) 04/26/18 07:30 Sample Site Left radial 04/27/18 13:00 pCO2 44 mmHg (34-47) 04/27/18 13:00 pO2 62 mmHg (83-108) L 04/27/18 13:00 O2 Saturation 93 % (94-98) L 04/27/18 13:00 ABG pH 7.36 (7.35-7.45) 04/27/18 13:00 ABG HCO3 24 mmol/L (22-28) 04/27/18 13:00 ABG Total CO2 23 mmol/L (22-29) 04/27/18 13:00 ABG Base Excess -1.1 mmol/L (-3-3) 04/27/18 13:00 VBG pH 7.34 (7.32-7.43) 04/28/18 06:55 VBG pCO2 48 mm/Hg (34-47) H 04/28/18 06:55 VBG pO2 104 mm/Hg (28-44) H 04/28/18 06:55 VBG HCO3 26 mmol/L (22-28) 04/28/18 06:55 VBG Total CO2 24 mmol/L (22-29) 04/28/18 06:55 VBG O2 Saturation 99 % (70-80) H 04/28/18 06:55 VBG Base Excess 0.1 mmol/L (-3-3) 04/28/18 06:55 FiO2 21 % 04/27/18 13:00 Sodium 135 mmol/L (136-145) L 05/05/18 07:28 Potassium 4.7 mmol/L (3.5-5.1) 05/05/18 07:28 Chloride 105 mmol/L (98-107) 05/05/18 07:28 Carbon Dioxide 20.4 mmol/L (21.0-32.0) L 05/05/18 07:28 Anion Gap 9.6 mmol/L (3-11) 05/05/18 07:28 BUN 49 mg/dL (7-18) H 05/05/18 07:28 Creatinine 2.68 mg/dL (0.70-1.30) H 05/05/18 07:28 Estimated GFR/1.73 m2 24.52 (mL/min/1.73m2) 05/05/18 07:28 Glucose 273 mg/dL (70-100) H 05/05/18 07:28 Lactate 0.5 mmol/l (0.6-1.4) L 04/26/18 07:30 Calcium 8.2 mg/dL (8.5-10.1) L 05/05/18 07:28 Magnesium 2.0 mg/dL (1.8-2.4) 05/02/18 06:25 Total Bilirubin 0.3 mg/dL (0.2-1.0) 05/04/18 14:30 AST 11 U/L (15-37) L 05/04/18 14:30 ALT 20 U/L (12-78) 05/04/18 14:30 Alkaline Phosphatase 161 U/L (46-116) H 05/03/18 06:57 Ammonia 24 umol/L (11-32) 04/25/18 20:43 Troponin I 0.06 ng/mL (0.00-0.06) 04/26/18 07:30 C-Reactive Protein 6.04 mg/dL (0.0-0.3) H 05/04/18 06:35 Total Protein 6.4 g/dL (6.4-8.2) 05/03/18 06:57 Albumin 2.5 g/dL (3.4-5.0) L 05/03/18 06:57 TSH 0.37 uIU/mL (0.358-3.74) 04/26/18 07:30 Urine Color Yellow (Yellow) 05/03/18 13:47 Urine Clarity Clear 05/03/18 13:47 Urine pH 6.0 (5-8) 05/03/18 13:47 Ur Specific [place] 1.020 (1.005-1.025) 05/03/18 13:47 Urine Protein 100 mg/dL (Negative) H 05/03/18 13:47 Urine Ketones Negative mg/dL (Negative) 05/03/18 13:47 Urine Blood Negative (Negative) 05/03/18 13:47 Urine Nitrite Negative (Negative) 05/03/18 13:47 Urine Bilirubin Negative (Negative) 05/03/18 13:47 Urine Urobilinogen 0.2 EU/dL (Up TO 0.2) 05/03/18 13:47 Ur Leukocyte Esterase Small (Negative) H 05/03/18 13:47 Urine RBC Negative (0-2) 05/03/18 13:47 Urine WBC >50 HPF (0-5) 05/03/18 13:47 Ur Epithelial Cells Negative HPF (Negative) 05/03/18 13:47 Urine Crystals Negative HPF (Negative) 05/03/18 13:47 Urine Bacteria Few HPF (Negative) 05/03/18 13:47 Urine Casts 0-2 coarse granular LPF (Negative) 05/03/18 13:47 Urine Mucus Negative (Negative) 05/03/18 13:47 Urine Other Rare renal (Negative) 05/03/18 13:47 Ur Culture Indicated? C&s done as ordered 05/03/18 13:47 Urine Glucose Negative mg/dL (Negative) 05/03/18 13:47 Vancomycin Trough 26.6 ug/mL (10.0-20.0) H* 05/02/18 20:55 Acetaminophen 5 ug/mL (10-30) L 04/25/18 20:43 Ethyl Alcohol < 3.0 mg/dL (<3) 04/25/18 20:43 C.difficile Tox Ab Neut Cancelled 04/26/18 10:13 Objective Narrative Objective Narrative: An echocardiogram today was unchanged from a previous echocardiogram. No evidence of vegetations were seen.
[2018-05-05] MEDS: Lidocaine 5% Patch 1 PATCH TP (19:16)
[2018-05-05] MEDS: risperiDONE 1 MG TAB 3 MG PO (22:37)
[2018-05-05] MEDS: Melatonin 3 MG TAB 9 MG PO (22:37)
[2018-05-05] MEDS: traZODone 50 MG TAB PO (22:37)
[2018-05-06 03:35] VITALS: BP 148/71; PULSE 65; RESP 20; TEMP 37.1; O2SAT 95
[2018-05-06] MEDS: Levothyroxine 75 MCG TAB 37.5 MCG PO (05:58)
[2018-05-06] MEDS: Normal Saline 1,000 ML 125 ML IV (06:39)
[2018-05-06 07:23] LABS: Anion Gap 9.8 mmol/L (3-11); BUN 47 mg/dL (7-18); CO2 19.2 mmol/L (21.0-32.0); Calcium 8.4 mg/dL (8.5-10.1); Chloride 109 mmol/L (98-107); Estimated GFR 29.25 (mL/min/1.73m2); Glucose 109 mg/dL (70-100); Sodium 138 mmol/L (136-145)
[2018-05-06 07:25] VITALS: BP 138/68; PULSE 60; RESP 22; TEMP 36.6; O2SAT 96
[2018-05-06 07:25] LABS: Absolute Basophil Count 0.01 k/cumm (0.0-0.2); Absolute Eosinophil Count 0.29 k/cumm (0.0-0.7); Absolute Lymphocyte Count 0.74 k/cumm (1.2-3.4); Absolute Monocyte Count 0.77 k/cumm (0.11-0.7); Absolute Neutrophil Count 8.89 k/cumm (1.2-6.7); Basophils % 0.1; Eosinophils % 2.7; HCT 30.1 % (40.0-50.0); HGB 9.4 g/dL (13.5-17.5); Immature Grans % 0.9; Lymphocytes % 6.9; Mean Corp. HGB Concentration 31.2 g/dL (32.0-36.0); Mean Corpuscular Hemoglobin 24.7 pg (27.0-33.0); Mean Corpuscular Volume 79.2 fL (80-95); Mean Platelet Volume 9.8 fL (8.0-11.0); Monocytes % 7.1; Neutrophils % 82.3; Platelet Count 283 x1000/uL (130-400); RBC Distribution Width 17.6 % (11.8-14.1)
[2018-05-06 07:35] VITALS: O2SAT 96
[2018-05-06 07:46] VITALS: PULSE 67
[2018-05-06] MEDS: Heparin 5,000 UNITS/ML VIAL 5000 UNITS SC (09:09)
[2018-05-06] MEDS: Metoprolol CR 25 MG TABCR PO (09:09)
[2018-05-06] MEDS: hydrALAZINE 10 MG TAB PO ×2 (09:09→14:06)
[2018-05-06] MEDS: Terazosin 2 MG CAP 4 MG PO (09:09)
[2018-05-06] MEDS: Ascorbic Acid 500 MG TAB PO (09:09)
[2018-05-06] MEDS: cloNIDine 0.1 MG TAB 0.3 MG PO ×2 (09:09→14:06)
[2018-05-06] MEDS: Aspirin E.C. 81 MG TABEC PO (09:10)
[2018-05-06] MEDS: Folic Acid 1 MG TAB PO (09:10)
[2018-05-06] MEDS: amLODIPine 5 MG TAB 10 MG PO (09:10)
[2018-05-06] MEDS: predniSONE 20 MG TAB 50 MG PO (09:10)
[2018-05-06] MEDS: Lactobacillus Acidophilus CAP 1 CAP PO ×2 (09:10→14:06)
[2018-05-06] MEDS: Gabapentin 300 MG CAP PO ×2 (09:10→14:06)
[2018-05-06] MEDS: Multivitamin TAB 1 TAB PO (09:10)
[2018-05-06] MEDS: Omeprazole 20 MG CAPCR PO (09:10)
[2018-05-06] MEDS: Magnesium Chloride 64 MG TABCR PO (09:10)
[2018-05-06] MEDS: Cyanocobalamin 500 MCG TAB 1000 MCG PO (09:11)
[2018-05-06] MEDS: Ketoconazole 2% CREAM 15 GM TUBE TP (09:11)
[2018-05-06] MEDS: carBAMazepine 100 MG CHEW PO ×2 (09:11→14:06)
[2018-05-06] MEDS: Ferrous Sulfate 325 MG TAB PO (09:11)
[2018-05-06] MEDS: Venlafaxine 37.5 MG CAPCR 75 MG PO (09:11)
[2018-05-06] MEDS: Insulin Aspart 300 UNITS/3 ML PEN SC ×3 (09:13→12:20)
[2018-05-06] MEDS: Patch Removal 1 EACH TP (09:20)
[2018-05-06] MEDS: Normal Saline Flush 10 ML SYR 20 ML IVP (09:20)
[2018-05-06 09:34] LABS: Vancomycin, Trough 27.1 ug/mL (10.0-20.0)
--- NOTE | 2018-05-06 10:40 | OT.INTREAT ---
Date of service: 05/06/18 Time of Service: 09:30 Occupational Therapy Notes Occupational Therapy Inpatient Treatment Note Date: 05/06/18 PRECAUTIONS: Fall, Standard SUBJECTIVE: Pt was sitting on side of bed when OT arrived. He is agreeable to OT session and to taking a shower today. OBJECTIVE: PAIN:no c/o pain FUNCTIONAL MOBILITY Sit-stand: Mod (A) x2 Stand-sit: Min (A)x1, FWW Transfer to wheelchair: CGA BATHING: Sitting on shower bench in shower Upper Body: (I) with face, elbow-hand, abdomen and carson area. Max (A) back, hair, elbow-shoulder, chest. Lower Body: (I) thighs to knees, Max (A) below knees and (B) feet. DRESSING: Sitting in chair Upper Extremity: Mod (A) donning and doffing hospital gown. Lower Extremity: Max (A) donning and doffing (B) socks. GROOMING: Sitting in chair Max (A) hair due to pts limited (B) arm ROM. ASSESSMENT: Pt demonstrated increased (I) in bathing routine and was able to tolerate shower well. He was able to demonstrate increased (R) UE ROM out to the side. Pt is demonstrating increased functional activity tolerance. He was covered for PICC line and over abdomen for line placement during the shower which was performed by nursing. PLAN: Pt reports that he believes he is going to return to [facility] today later this afternoon when medically cleared per MD. TREATMENT CODES/TIME: [id number], 69 minutes (9:30) [facility]
--- NOTE | 2018-05-06 10:51 | OTTR_ITS ---
Date of service: 05/06/18 Time of Service: 09:30 Occupational Therapy Notes Occupational Therapy Inpatient Treatment Note Date: 05/06/18 PRECAUTIONS: Fall, Standard SUBJECTIVE: Pt was sitting on side of bed when OT arrived. He is agreeable to OT session and to taking a shower today. OBJECTIVE: PAIN:no c/o pain FUNCTIONAL MOBILITY Sit-stand: Mod (A) x2 Stand-sit: Min (A)x1, FWW Transfer to wheelchair: CGA BATHING: Sitting on shower bench in shower Upper Body: (I) with face, elbow-hand, abdomen and carson area. Max (A) back, hair, elbow-shoulder, chest. Lower Body: (I) thighs to knees, Max (A) below knees and (B) feet. DRESSING: Sitting in chair Upper Extremity: Mod (A) donning and doffing hospital gown. Lower Extremity: Max (A) donning and doffing (B) socks. GROOMING: Sitting in chair Max (A) hair due to pts limited (B) arm ROM. ASSESSMENT: Pt demonstrated increased (I) in bathing routine and was able to tolerate shower well. He was able to demonstrate increased (R) UE ROM out to the side. Pt is demonstrating increased functional activity tolerance. He was covered for PICC line and over abdomen for line placement during the shower which was performed by nursing. PLAN: Pt reports that he believes he is going to return to [facility] today later this afternoon when medically cleared per MD. TREATMENT CODES/TIME: [id number], 69 minutes (9:30) [facility]
[2018-05-06 11:40] VITALS: BP 168/89; PULSE 63; RESP 20; TEMP 36.2; O2SAT 99
[2018-05-06] MEDS: oxyCODONE 5 MG TAB PO (12:19)
--- NOTE | 2018-05-06 13:45 | NT_ITS ---
Date of service: 05/06/18 Time of Service: 13:44 PT Notes 05/07/18 Refused PT this PM. Pt stating he does not feel well. Raquel Rashid, [employer]
--- NOTE | 2018-05-06 13:57 | PDOC.CMDIS ---
- If Service Date Differs Date of service: 05/06/18 Time of Service: 13:57 LACE Index Scoring Tool - Questions: Length of Stay (in days): 7 - 13 Acuity (Admit via E.D.?): Yes Comorbidities: Diabetes w/o Complication, Mild Liver/Renal Disease E.D. Visits: 9 - Answers: Total Score: 15 Risk of Readmission: High Risk Care Management Discharge Reason for Hospitalization: UTI Discharge Plan: Brendan will return to [facility] today on IV Vanco QD. CM notified Isela, [facility], of the above. CM spoke with [facility] whom will transport at 1415. CM notified Joni, [facility] corporation secretary, whom will notify nursing of the above. Patient/Family Education Needs: Review DC isntructions, any limitations, and discuss 'ask me three' Services Needed at Discharge: Assisted Facility ([facility]), Transportation ([facility])
[2018-05-06 13:58] VITALS: PULSE 67
--- NOTE | 2018-05-06 14:08 | CMDISCH_ITS ---
- If Service Date Differs Date of service: 05/06/18 Time of Service: 13:57 LACE Index Scoring Tool - Questions: Length of Stay (in days): 7 - 13 Acuity (Admit via E.D.?): Yes Comorbidities: Diabetes w/o Complication, Mild Liver/Renal Disease E.D. Visits: 9 - Answers: Total Score: 15 Risk of Readmission: High Risk Care Management Discharge Reason for Hospitalization: UTI Discharge Plan: Brendan will return to [facility] today on IV Vanco QD. CM notified Isela, [facility], of the above. CM spoke with [facility] whom will transport at 1415. CM notified Joni, [facility] secretary of police, whom will notify nursing of the above. Patient/Family Education Needs: Review DC isntructions, any limitations, and discuss 'ask me three' Services Needed at Discharge: Care Home Facility ([facility]), Transportation ([facility])
--- NOTE | 2018-05-06 14:38 | DSE_ITS ---
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 He has been admitted several times with sepsis syndrome including previous MRSA bacteremia. The source in the past has been presumed cellulitis of his lower extremities, urinary tract, biliary, and dental. During this admission he had 2 transthoracic echocardiograms that did not show evidence of vegetation nor any new valvular disease. A trans-esophageal echo was planned but was deferred for medical reasons on several occasions. He was empirically treated with vancomycin for a total of 10 days during this admission. On consultation with cardiology was felt that continued empiric treatment for endocarditis was warranted given the lack of evidence for other source of his recurrent bacteremia. He had a CT of the chest abdomen pelvis 05/01/2018 that showed no evidence of an abscess, CT of the elbow 05/01/2018 that showed no osteomyelitis. He has very poor dentition and has been slated for total tooth extraction in the past but was canceled due to poor health issues. He is returning to the [facility] for continued IV vancomycin for presumed treatment of MRSA endocarditis. A transesophageal echo should be done if he is shown to have recurrent bacteremia or recurrent illness. Home Meds and New Rx's Prescriptions: New vancomycin 750 mg recon soln 750 mg IV DAILY@0700 35 Days Qty: 10 RF: 0 risperidone [Risperdal] 1 mg Tablet 3 mg PO HS Qty: 30 RF: 0 trazodone 50 mg Tablet 50 mg PO HS Qty: 30 RF: 0 oxycodone 5 mg capsule 5 mg PO Q8H PRN (Reason: pain) Qty: 30 RF: 0 Continued loperamide 2 mg Capsule 2 mg PO QID PRNRF: 0 cyanocobalamin (vitamin B-12) 1,000 mcg Tablet 1,000 mcg PO DAILY RF: 0 aspirin [Aspirin Low Dose] 81 mg Tablet,Delayed Release (Dr/Ec) 81 mg PO BID RF: 0 carbamazepine 100 mg Tablet,Chewable 100 mg PO TID RF: 0 omeprazole 20 mg Capsule,Delayed Release(Dr/Ec) 20 mg PO DAILY RF: 0 folic acid 1 mg Tablet 1 mg PO DAILY RF: 0 clonidine HCl [Catapres] 0.1 mg Tablet 0.3 mg PO TID Qty: 0 RF: 0 amlodipine 5 mg Tablet 10 mg PO DAILY Qty: 0 RF: 0 ferrous sulfate 325 mg (65 mg iron) Tablet 325 mg PO BID Qty: 0 RF: 0 Lantus Solostar U-100 Insulin 100 unit/mL (3 mL) insulin pen 60 unit subcut DAILY RF: 0 levothyroxine 75 mcg Tablet 0.5 tab PO DAILY RF: 0 ascorbic acid (vitamin C) [Vitamin C] 250 mg Tablet 1 tab PO BID RF: 0 ergocalciferol (vitamin D2) [Vitamin D2] 50,000 unit Capsule See Rx Instructions .ROUTE .COMPLEX RF: 0 Centrum Complete 18-400 mg-mcg Tablet 1 tab PO DAILY RF: 0 Novolog Flexpen U-100 Insulin 100 unit/mL insulin pen subcut 0730,1130,1630 RF: 0 venlafaxine 75 mg Capsule,Extended Release 24hr 75 mg PO DAILY RF: 0 metoprolol succinate 25 mg Tablet Extended Release 24 Hr 25 mg PO DAILY RF: 0 furosemide 20 mg Tablet 20 mg PO BID@0830,1600 Qty: 0 RF: 0 acidophilus-pectin, citrus 25 million cell -100 mg Tablet 1 cap PO TID Qty: 0 RF: 0 prednisone 20 mg tablet 50 mg PO DAILY Qty: 0 RF: 0 acetaminophen [Tylenol] 325 mg Tablet 325 - 650 mg PO Q4H PRN PRNQty: 0 RF: 0 hydralazine 10 mg Tablet 10 mg PO TID Qty: 0 RF: 0 terazosin 2 mg Capsule 4 mg PO BID Qty: 0 RF: 0 hydroxyzine HCl 25 mg Tablet 25 mg PO Q6H PRN PRN (Reason: Itching) Qty: 0 RF: 0 magnesium chloride [Mag 64] 64 mg Tablet,Delayed Release (Dr/Ec) 64 mg PO BID Qty: 0 RF: 0 Discharge Instructions Instructions: Endocarditis (DC), MRSA (Methicillin Resistant Staphylococcus Aureus) (DC) Additional Instructions: Complete dental extraction recommended?referral to oral surgery SBE prophylaxis recommended for any procedures Transesophageal echocardiogram recommended if recurrence Stand Alone Forms: Nursing Discharge Form Referrals: Anne Horowitz [place], [place] [Primary Care Provider] - (Dr. Horowitz will see you at the [facility].) Activity:: Activity as Tolerated Equipment/Supplies:: No Equipment Needed Diet:: Carb Counting Discharge Orders Discharge Orders: Discharge Order (Routine); Ordered 05/06/18 Ordered By: Hemanth Rodriguez Discharge Data Discharge Date/Time-TO BE ENTERED AT DEPARTURE: 05/06/18 14:17 Exam Narrative Exam Narrative: Brendan is alert and oriented. His appetite is back. He is eating all meals and drinking plenty of fluids. He is moving around fluidly, sitting up on the side of the bed. He has no respiratory distress. He satting well on room air. He has no cough. His lower extremities have some purpuric changes from old venous stasis disease but are remarkably free of edema. He does have some evidence of muscle wasting in his lower extremities. Brendan has lost about 100 pounds since my last visit with him. He has very poor dentition with just stumps for teeth though there is no apparent acute infectious process in his mouth. DS: Data Vitals/I&O Vitals and I&O: Vital Signs Temperature 36.2 C L 05/06/18 11:40 Temperature Source Tympanic 05/06/18 11:40 Pulse 67 05/06/18 13:58 Pulse Rhythm Regular 05/06/18 08:30 Pulse 63 04/29/18 10:00 Respiratory Rate 20 05/06/18 11:40 Respiratory Effort Non-Labored 05/06/18 08:30 Respiratory Depth Normal 05/06/18 08:30 Respiratory Pattern Normal 05/06/18 08:30 Blood Pressure 168/89 H 05/06/18 11:40 Blood Pressure Mean 102 04/29/18 19:26 Blood Pressure Position Supine 04/29/18 00:05 Pulse Oximetry 99 05/06/18 11:40 Oxygen Delivery Method Room Air 05/06/18 11:40 Oxygen Flow Rate 0 05/06/18 11:40 Pain Level 4 05/05/18 07:35 Comment 05/03/18 03:55 Intake & Output 05/05/18 05/06/18 05/06/18 23:59 11:59 23:59 Intake Total 1530 / 2432.083 1080 / 1830 750 / 1830 Output Total 1100 / 2325 2600 / 3350 750 / 3350 Balance 430 / 107.083 -1520 / -1520 0 / -1520 Weight 105.3 kg Intake: IV 1050 / 9700.528 0353 / 1030 Oral 480 / 480 50 / 800 750 / 800 Output: Drainage 200 / 400 500 / 500 right abdomen 200 / 400 500 / 500 Urine 500 / 1125 1200 / 1600 400 / 1600 Stool 400 / 800 900 / 1250 350 / 1250 Other: Urine Color Pale Yellow Yellow Urine Appearance Clear Clear Clear Urine Odor Normal None None Voiding Methods Urinal Urinal Urinal Completed studies during hospitalization [Text1]: Echocardiogram 04/29/2018 showed no evidence of vegetations. EF 60-65% Echocardiogram 05/05/2018 showed no evidence of vegetations EF 65% CT of the right wrist 05/01/18 but no evidence of osteomyelitis CT chest abdomen pelvis 05/01/2018 showed no evidence of abscess CT chest and abdomen 05/04/2018 showed no acute abdomen abnormality, stable cholecystotomy tube and cholelithiasis C-reactive protein levels 1.63, 0.68, 1.60, 6.04 Microbiology showed blood culture 04/25/2018 2 out of 2 bottles staph aureus positive MRSA, urine 04/26/2018 showed yeast, C. difficile specimens x2 came back negative for antigen or toxin, repeat blood cultures 05/03/2018 no growth, urine culture 05/03/2018 no growth Labs on day of discharge: Labs from last 24 hours 05/06/18 05/06/18 05/06/18 09:07 06:35 06:35 WBC 10.80 RBC 3.80 L Hgb 9.4 L Hct 30.1 L MCV 79.2 L MCH 24.7 L MCHC 31.2 L RDW 17.6 H Plt Count 283 MPV 9.8 Immature Gran % 0.9 Neutrophils % 82.3 Lymphocytes % 6.9 Monocytes % 7.1 Eosinophils % 2.7 Basophils % 0.1 Absolute Neutrophils 8.89 H Absolute Lymphocytes 0.74 L Absolute Monocytes 0.77 H Absolute Eosinophils 0.29 Absolute Basophils 0.01 Sodium 138 Potassium 5.0 Chloride 109 H Carbon Dioxide 19.2 L Anion Gap 9.8 BUN 47 H Creatinine 2.30 H Estimated GFR/1.73 m2 29.25 Glucose 109 H D Calcium 8.4 L Vancomycin Trough 27.1 H* Preliminary micro results at discharge 05/03/18 12:48 Blood Culture - Preliminary Blood NO GROWTH 48 HOURS 05/03/18 12:38 Blood Culture - Preliminary Blood NO GROWTH 48 HOURS [facility] Medical History MRSA bacteremia (Acute) Diabetic foot ulcer (Chronic) Poorly controlled type 2 diabetes mellitus with circulatory disorder (Chronic) CKD (chronic kidney disease) (Chronic) Cardiopulmonary arrest with successful resuscitation (Resolved) Heme positive stool (Chronic) Pedal edema (Chronic) Chronic insomnia (Chronic) Hypertension (Chronic) Chronic pain (Chronic) Hypothyroidism (Chronic) Obesity (Chronic) Back pain (Chronic 06/21/13) Inability to get out of bed (Chronic 06/21/13) Poor self care (Chronic 06/21/13) Chronic bipolar disorder (Chronic) CAD (coronary artery disease) (Chronic) Dyslipidemia (Chronic) Rheumatoid arthritis (Chronic) Osteoarthritis of both knees (Chronic) Cholelithiasis (Chronic) Impaired mobility and ADLs (Chronic) Hemorrhagic cystitis (Inactive) Anemia (Chronic) Chronic anxiety (Chronic) Ulcerative colitis (Chronic) Surgical History History of insertion of T-tube into biliary tract (Chronic) S/P colectomy (Chronic) Arthroplasty of knee (Resolved 03/18/12) Fracture, Open Treatment (Resolved) Social History housing: skilled nursing Smoking and Tabacco status: Never
--- NOTE | 2018-05-06 14:49 | OT.INDS ---
Date of service: 05/06/18 Time of Service: 14:49 Occupational Therapy Notes Occupational Therapy Inpatient Discharge Summary Dates of Service: 04/28/18-05/06/18 Date: 05/06/18 Referring Doctor:Priscila Canela MD OT Orders: Eval and Treat Precautions: Fall Risk, Contact Precautions PATIENT PROFILE/ADMITTING DIAGNOSIS: Pt is a 58 year old male who has been admitted multiple times to [facility] from [facility] since October 2017. He was admtted through the ER on 04/26/18 for a urinary tract infection. Past Medical History: Diabetic neuropathy, diabetic foot ulcers, rheumatoid arthritis, osteoarthritis bilateral knees, sacral decubitus ulcer, chronic renal insufficiency, coronary artery disease, crohn's disease, s/p colectomy, anemia, urinary tract infection, dyslipidemia, hypoandrogenism, cholelithiasis, hypertension, bipolar Disorder, chronic back pain, lower extremity edema, obesity, diabetes mellitus, MRSA blood and urine. Social History/Home Situation: Pt resides at [facility]. He reports that his was total (A) for ADLs when admitted and pt reports that this has recently decline since November 2017 which. Equipment owned/DME: FWW which he uses for ambulation, he is a resident of SNF so all other DME are met through the facility. THIS DOCUMENT SERVES A SUMMARY OF CARE, PATIENT WAS SEEN EARLIER THIS MORNING FOR SKILLED OT SERVICES. NO SKILLED SERVICES WERE PROVIDED FOR THIS DISCHARGE SUMMARY. SUBJECTIVE: NT OBJECTIVE: ROM: RUE Shoulder flexion to 60*, elbow unable due to pain L UE Shoulder flexion ~30*, elbow flexion WFL STRENGTH: RUE Unable to test shoulder flexion or elbow sales ledger clerk is weak and symmetrical LUE Unable to test shoulder flexion or elbow sales ledger clerk is weak and symmetrical ADLS: (copied from tx note performed earlier this morning) BATHING: Sitting on shower bench in shower Upper Body: (I) with face, elbow-hand, abdomen and carson area. Max (A) back, hair, elbow-shoulder, chest. Lower Body: (I) thighs to knees, Max (A) below knees and (B) feet. DRESSING: Sitting in chair Upper Extremity: Mod (A) donning and doffing hospital gown. Lower Extremity: Max (A) donning and doffing (B) socks. GROOMING: Sitting in chair Max (A) hair due to pts limited (B) arm ROM. BALANCE: Static sitting normal Dynamic Sitting good Static Standing Fair Dynamic Standing Fair ASSESSMENT: Patient is a 58-year-old male referred to occupational therapy services after being admitted through the ER at [facility] urinary tract infection. Pt has been seen multiple times here at [facility] since October 2017 in setting of Bipolar Disorder, chronic back pain, lower extremity edema, obesity, diabetes mellitus, diabetic neuropathy, diabetic foot ulcers, rheumatoid arthritis, osteoarthritis bilateral knees, sacral decubitus ulcer, chronic renal insufficiency, coronary artery disease, crohn's disease, s/p colectomy, anemia, urinary tract infection, dyslipidemia, hypoandrogenism, cholelithiasis, hypertension. Pt was seen for 4 skilled OT sessions. Pt met goals 2,3 and 5. He demonstrated increased (I) in ADL routine. Pt was discharged today to return to the [facility]. GOALS 1. Transfers CGA, FWW (NOT MET) 2. Dressing: Sitting on side of bed, pt will be able to put at least one of his UE into the hospital gown (I) with min verbal cues. (MET) 3. Bathing: Sitting on side of bed pt will be able to wash face, (B) UE and abdomen (I) with min verbal cues. (MET) 4. Pts sales ledger clerk strength will improve to 4/5 (B) and pt will be able to grasp small objects with increased (I) (NOT MET) 5. Pt will be able to wash his (B) LE to his kness (I) in the sitting position. (MET) PLAN OF CARE/TREATMENT PLAN: Pt was discharged back to the [facility] this afternoon and medically cleared per MD. DISCHARGE RECOMMENDATIONS Return to [facility] when medically cleared per MD. TREATMENT TIME/MINUTES/CODES N/A Suzanne Javier OTR/L [facility]
--- NOTE | 2018-05-06 14:54 | OTDS_ITS ---
Date of service: 05/06/18 Time of Service: 14:49 Occupational Therapy Notes Occupational Therapy Inpatient Discharge Summary Dates of Service: 04/28/18-05/06/18 Date: 05/06/18 Referring Doctor:Priscila Canela MD OT Orders: Eval and Treat Precautions: Fall Risk, Contact Precautions PATIENT PROFILE/ADMITTING DIAGNOSIS: Pt is a 58 year old male who has been admitted multiple times to [facility] from [facility] since October 2017. He was admtted through the ER on 04/26/18 for a urinary tract infection. Past Medical History: Diabetic neuropathy, diabetic foot ulcers, rheumatoid arthritis, osteoarthritis bilateral knees, sacral decubitus ulcer, chronic renal insufficiency, coronary artery disease, crohn's disease, s/p colectomy, anemia, urinary tract infection, dyslipidemia, hypoandrogenism, cholelithiasis, hypertension, bipolar Disorder, chronic back pain, lower extremity edema, obesity, diabetes mellitus, MRSA blood and urine. Social History/Home Situation: Pt resides at [facility]. He reports that his was total (A) for ADLs when admitted and pt reports that this has recently decline since November 2017 which. Equipment owned/DME: FWW which he uses for ambulation, he is a resident of SNF so all other DME are met through the facility. THIS DOCUMENT SERVES A SUMMARY OF CARE, PATIENT WAS SEEN EARLIER THIS MORNING FOR SKILLED OT SERVICES. NO SKILLED SERVICES WERE PROVIDED FOR THIS DISCHARGE SUMMARY. SUBJECTIVE: NT OBJECTIVE: ROM: RUE Shoulder flexion to 60*, elbow unable due to pain L UE Shoulder flexion ~30*, elbow flexion WFL STRENGTH: RUE Unable to test shoulder flexion or elbow certified ophthalmic surgical assistant is weak and symmetrical LUE Unable to test shoulder flexion or elbow certified ophthalmic surgical assistant is weak and symmetrical ADLS: (copied from tx note performed earlier this morning) BATHING: Sitting on shower bench in shower Upper Body: (I) with face, elbow-hand, abdomen and carson area. Max (A) back, hair, elbow-shoulder, chest. Lower Body: (I) thighs to knees, Max (A) below knees and (B) feet. DRESSING: Sitting in chair Upper Extremity: Mod (A) donning and doffing hospital gown. Lower Extremity: Max (A) donning and doffing (B) socks. GROOMING: Sitting in chair Max (A) hair due to pts limited (B) arm ROM. BALANCE: Static sitting normal Dynamic Sitting good Static Standing Fair Dynamic Standing Fair ASSESSMENT: Patient is a 58-year-old male referred to occupational therapy services after being admitted through the ER at [facility] urinary tract infection. Pt has been seen multiple times here at [facility] since October 2017 in setting of Bipolar Disorder, chronic back pain, lower extremity edema, obesity, diabetes mellitus, diabetic neuropathy, diabetic foot ulcers, rheumatoid arthritis, osteoarthritis bilateral knees, sacral decubitus ulcer, chronic renal insufficiency, coronary artery disease, crohn's disease, s/p colectomy, anemia, urinary tract infection, dyslipidemia, hypoandrogenism, cholelithiasis, hypertension. Pt was seen for 4 skilled OT sessions. Pt met goals 2,3 and 5. He demonstrated increased (I) in ADL routine. Pt was discharged today to return to the [facility]. GOALS 1. Transfers CGA, FWW (NOT MET) 2. Dressing: Sitting on side of bed, pt will be able to put at least one of his UE into the hospital gown (I) with min verbal cues. (MET) 3. Bathing: Sitting on side of bed pt will be able to wash face, (B) UE and abdomen (I) with min verbal cues. (MET) 4. Pts certified ophthalmic surgical assistant strength will improve to 4/5 (B) and pt will be able to grasp small objects with increased (I) (NOT MET) 5. Pt will be able to wash his (B) LE to his kness (I) in the sitting position. (MET) PLAN OF CARE/TREATMENT PLAN: Pt was discharged back to the [facility] this afternoon and medically cleared per MD. DISCHARGE RECOMMENDATIONS Return to [facility] when medically cleared per MD. TREATMENT TIME/MINUTES/CODES N/A Suzanne Javier OTR/L [facility]
== END 2018-05-06 14:17 | disposition skilled nursing facility (03) | DRG 871 ==
LOC: ER 04-26 00:32 → MS 04-26 03:17 → ICU 04-26 12:15 → MS 05-06 13:54 → ICU 05-13 09:07
PROVIDERS: Internal Medicine; Admitting Provider Internal Medicine; Emergency Provider Emergency Medicine; PCP Family Medicine; Visit Provider Family Medicine
DX: R78.81 Bacteremia (principal); J18.9 Pneumonia, unspecified organism; I33.0 Acute and subacute infective endocarditis; G92 Toxic encephalopathy; A41.02 Sepsis due to Methicillin resistant Staphylococcus aureus; B37.49 Other urogenital candidiasis; N17.9 Acute kidney failure, unspecified; E27.3 Drug-induced adrenocortical insufficiency; E87.2 Acidosis; B95.62 Methicillin resistant Staphylococcus aureus infection as the cause of diseases classified elsewhere; T38.0X5A Adverse effect of glucocorticoids and synthetic analogues, initial encounter; E87.5 Hyperkalemia; E86.0 Dehydration; M25.521 Pain in right elbow; M19.021 Primary osteoarthritis, right elbow; M06.9 Rheumatoid arthritis, unspecified; Z79.52 Long term (current) use of systemic steroids; E11.65 Type 2 diabetes mellitus with hyperglycemia; E11.59 Type 2 diabetes mellitus with other circulatory complications; E11.22 Type 2 diabetes mellitus with diabetic chronic kidney disease; N18.9 Chronic kidney disease, unspecified; Z79.4 Long term (current) use of insulin; I12.9 Hypertensive chronic kidney disease with stage 1 through stage 4 chronic kidney disease, or unspecified chronic kidney disease; E03.9 Hypothyroidism, unspecified; I25.10 Atherosclerotic heart disease of native coronary artery without angina pectoris; Z87.440 Personal history of urinary (tract) infections; I27.20 Pulmonary hypertension, unspecified; Z93.3 Colostomy status; Z93.8 Other artificial opening status; K81.1 Chronic cholecystitis; F31.9 Bipolar disorder, unspecified; Z87.81 Personal history of (healed) traumatic fracture; I51.7 Cardiomegaly; I51.89 Other ill-defined heart diseases; Y95 Nosocomial condition; L73.9 Follicular disorder, unspecified
CPT/HCPCS: 36410; 36415; 36569; 51702; 71250; 74150; 80048; 80053; 82805; 85027; 87040; 87077; 87081; 93005; 93306; 96365; 96366; 96367; 97110; 97163; 97166; 97530; 97535; 99221; 99223; 99232; 99233; 99239; 99285; 99291; G0297; 36600; 70450; 73070; 73200; 74176; 78806; 80202; 80320; 80329; 81003; 81015; 82140; 82247; 82565; 83010; 83605; 83735; 84132; 84443; 84450; 84460; 84484; 85025; 85610; 86140; 87070; 87086; 87186; 87205; 87230; 87324; 93010; J0696; J1644; J1650; J1720; J1940; J1941; J2543; J3370; J3490; J7060; J7512; Q9967

== ENCOUNTER → 2018-04-27 14:00 | Outpatient (BNVA) | payer MEDICARE, MEDICAID, SELFPAY | PROVIDERS: PCP Family Medicine; Referring Provider Family Medicine; Visit Provider Orthopaedic Surgery | DX: R69 Illness, unspecified (principal) ==

== ENCOUNTER → 2018-05-04 09:00 | Outpatient (BNVA) | payer MEDICARE, MEDICAID, SELFPAY ==
--- NOTE | 2018-05-07 14:49 | PT.INDS ---
Date of service: 05/07/18 PT Notes Inpatient Physical Therapy Discharge Summary Dates: 05/07/2018 Dates of Service: 04/29/18- 05/06/18 Referring Doctor: Jarad Canela MD PT Orders: PT CONSULT: Eval and treat Precautions: Falls, Standard, Contact and Droplet. Patient Profile/Admitting Diagnosis: Pt is a 58 year old male who has had multiple re-admissions to this hospital from [facility] since October 2017. He was admitted through the ER on 04/26/18 for a urinary tract infection. PMHX: Diabetic neuropathy, diabetic foot ulcers, rheumatoid arthritis, osteoarthritis bilateral knees, sacral decubitus ulcer, acute on chronic renal insufficiency, coronary artery disease, Crohn's disease, s/p colectomy, anemia, urinary tract infection, dyslipidemia, hypoandrogenism, cholelithiasis, hypertension, bipolar Disorder, chronic back pain, lower extremity edema, obesity, diabetes mellitus, MRSA blood and urine, and adrenal insufficiency. Social History/Home Situation: Patient is a resident of the [facility]. Per his report he walks short distances only, he estimates approximately 10 steps with use of wheeled walker. He does not manage stairs. Equipment Owned/DME: Wheeled walker, long-term care facility resident Subjective: Patient was agreeable to having PT help with transfers and ambulation to shower room today. He was amenable to a discharge assessment as well. Objective: General Observation: Patient was seen sitting at edge of bed with [place] and OT preparing him for shower activity. Mental Status: A and O x3 Pain: 0/10 ROM: Right Upper Extremity: Shoulder flexion 70 degrees. Elbow motion is limited to 100 degrees flexion, lacking at least 20 degrees of terminal extension. Good functional opening of the hand. Left Upper Extremity: Shoulder flexion 80 degrees. Elbow motion is within functional limits. Good functional opening of the hand. Right Lower Extremity: Patient has approximately 15 degree knee flexion contracture. Demonstrates ankle dorsiflexion to 5 degrees. Left Lower Extremity: Patient has approximately 20 degree knee flexion contracture. Demonstrates ankle dorsiflexion to 5 degrees. Strength: Right Upper Extremity: Shoulder flexion 2-/5. Biceps 2-/5. Triceps 3+/5. Montessori Toddler Teacher is weak. Left Upper Extremity: Shoulder flexion 3-/5. Biceps 3-/5. Triceps 3+/5. Montessori Toddler Teacher is weak. Right Lower Extremity: Hip flexion 3-/5. Quads 3-/5. Hamstrings 3-/5. Ankle dorsiflexors 2-/5. Left Lower Extremity: Hip flexion 3-/5. Quads 3-/5. Hamstrings 3-/5. Ankle dorsiflexiors 2-/5. Bed Mobility/Transfers: Supine to sit: Supervision Sit to stand: Minimal assist with FWW Stand to sit: Minimal assist with FWW Bed to chair: Min assist with FWW Gait: Tolerated about 6-8 steps from edge of bed to front of wheelchair using front-wheeled walker minimal cueing provided for overall safety. Step height and length continue to be decreased. Balance: Static Sitting: Good Dynamic Sitting: Good Static Standing: Fair Dynamic Standing: Fair Special Tests: Mobility Limitations Standardized Measure [facility] 6 clicks Basic Mobility Inpatient Short Form: Raw Score: 16 CMS Score: 54.16 % deficit May show Assessment: Patient is a 58 year old male referred to physical therapy services with the diagnosis of urinary tract infection, weakness, and functional decline. Patient presents with clinical signs and symptoms consistent with reduced mobility related to acute medical issues. Patient does have chronic mobility deficits, and resides in a long-term care facility, where he requires assistance with all ambulation and self-care. PT goals will be targeted at maximizing patient's mobility and strength to allow for safe transition back to long-term care facility. He continues to demonstrate the following impairment level findings: 1. Decreased lower extremity strength 2. Decreased upper extremity strength 3. Decreased activity tolerance 4. Decreased range of motion bilateral knees and hands 5. Decreased balance skills Impairments are contributing to the following functional limitations: 1. Unable to perform ambulation 2. Patient requiring assistance with bed mobility 3. Decreased activity tolerance 4. Decreased safety with transfers 5. Dependence with transfer task performance Goals: Goals X1 week 1. Supine-Sit independent NOT MET 2. Sit-Supine independent NOT MET 3. Sit-Stand CG with FWW MET 4. Stand-Sit CG FWW MET 5. Bed-Chair min assist with WW MET 6. Chair-Bed min assist with WW MET 7. Gait: min A for at least 15' with WW MET DISCHARGE RECOMMENDATIONS: Return to the [facility] as a long-term resident with previous equipment in place. TREATMENT CODE/TIME: 90290 52 minutes beginning at 9:24 AM. Thank you for this referral. Jean Gamez, PT, DPT, CLT [facility]
--- NOTE | 2018-05-07 15:03 | INDS_ITS ---
Date of service: 05/07/18 PT Notes Inpatient Physical Therapy Discharge Summary Dates: 05/07/2018 Dates of Service: 04/29/18- 05/06/18 Referring Doctor: Jarad Canela MD PT Orders: PT CONSULT: Eval and treat Precautions: Falls, Standard, Contact and Droplet. Patient Profile/Admitting Diagnosis: Pt is a 58 year old male who has had multiple re-admissions to this hospital from [facility] since October 2017. He was admitted through the ER on 04/26/18 for a urinary tract infection. PMHX: Diabetic neuropathy, diabetic foot ulcers, rheumatoid arthritis, osteoarthritis bilateral knees, sacral decubitus ulcer, acute on chronic renal insufficiency, coronary artery disease, Crohn's disease, s/p colectomy, anemia, urinary tract infection, dyslipidemia, hypoandrogenism, cholelithiasis, hypertension, bipolar Disorder, chronic back pain, lower extremity edema, obesity, diabetes mellitus, MRSA blood and urine, and adrenal insufficiency. Social History/Home Situation: Patient is a resident of the [facility]. Per his report he walks short distances only, he estimates approximately 10 steps with u se of wheeled walker. He does not manage stairs. Equipment Owned/DME: Wheeled walker, long-term care facility resident Subjective: Patient was agreeable to having PT help with transfers and ambulat ion to shower room today. He was amenable to a discharge assessment as well. Objective: General Observation: Patient was seen sitting at edge of bed with [place]ernaze and OT preparing him for shower activity. Mental Status: A and O x3 Pain: 0/10 ROM: Right Upper Extremity: Shoulder flexion 70 degrees. Elbow motion is limited to 100 degrees flexion, lacking at least 20 degrees of terminal extension. Good functional opening of the hand. Left Upper Extremity: Shoulder flexion 80 degrees. Elbow motion is within functional limits. Good functional opening of the hand. Right Lower Extremity: Patient has approximately 15 degree knee flexion contracture. Demonstrates ankle dorsiflexion to 5 degrees. Left Lower Extremity: Patient has approximately 20 degree knee flexion contracture. Demonstrates ankle dorsiflexion to 5 degrees. Strength: Right Upper Extremity: Shoulder flexion 2-/5. Biceps 2-/5. Triceps 3+/5. Taker Off Hemp Fiber is weak. Left Upper Extremity: Shoulder flexion 3-/5. Biceps 3-/5. Triceps 3+/5. Taker Off Hemp Fiber is weak. Right Lower Extremity: Hip flexion 3-/5. Quads 3-/5. Hamstrings 3-/5. Ankle dorsiflexors 2-/5. Left Lower Extremity: Hip flexion 3-/5. Quads 3-/5. Hamstrings 3-/5. Ankle dorsiflexiors 2-/5. Bed Mobility/Transfers: Supine to sit: Supervision Sit to stand: Minimal assist with FWW Stand to sit: Minimal assist with FWW Bed to chair: Min assist with FWW Gait: Tolerated about 6-8 steps from edge of bed to front of wheelchair using front-wheeled walker minimal cueing provided for overall safety. Step height and length continue to be decreased. Balance: Static Sitting: Good Dynamic Sitting: Good Static Standing: Fair Dynamic Standing: Fair Special Tests: Mobility Limitations Standardized Measure [facility] 6 clicks Basic Mobility Inpatient Short Form: Raw Score: 16 CMS Score: 54.16 % deficit May show Assessment: Patient is a 58 year old male referred to physical therapy services with the diagnosis of urinary tract infection, weakness, and functional decline. Patient presents with clinical signs and symptoms consistent with reduced mobility related to acute medical issues. Patient does have chronic mobility deficits, and resides in a long-term care facility, where he requires assistance with all ambulation and self-care. PT goals will be targeted at maximizing patient's mobility and strength to allow for safe transition back to long-term care facility. He continues to demonstrate the following impairment level findings: 1. Decreased lower extremity strength 2. Decreased upper extremity strength 3. Decreased activity tolerance 4. Decreased range of motion bilateral knees and hands 5. Decreased balance skills Impairments are contributing to the following functional limitations: 1. Unable to perform ambulation 2. Patient requiring assistance with bed mobility 3. Decreased activity tolerance 4. Decreased safety with transfers 5. Dependence with transfer task performance Goals: Goals X1 week 1. Supine-Sit independent NOT MET 2. Sit-Supine independent NOT MET 3. Sit-Stand CG with FWW MET 4. Stand-Sit CG FWW MET 5. Bed-Chair min assist with WW MET 6. Chair-Bed min assist with WW MET 7. Gait: min A for at least 15' with WW MET DISCHARGE RECOMMENDATIONS: Return to the [facility] as a long-term resident with previous equipment in place. TREATMENT CODE/TIME: 38228 52 minutes beginning at 9:24 AM. Thank you for this referral. Jean Gamez, PT, DPT, CLT [facility]
== END ==
PROVIDERS: PCP Family Medicine; Visit Provider Internal Medicine Interventional Cardiology
DX: R69 Illness, unspecified (principal)

== ENCOUNTER 2018-05-08 09:12 | Outpatient (REF) | payer MEDICARE, MEDICAID, SELFPAY ==
[2018-05-08 09:39] LABS: Abs Immature Grans 0.18 k/cumm (0.0-0.09); Basophils % 0.3; Eosinophils % 1.9; HGB 10.2 g/dL (13.5-17.5); Immature Grans % 1.5; Lymphocytes % 5.9; Mean Corp. HGB Concentration 30.9 g/dL (32.0-36.0); Mean Corpuscular Hemoglobin 24.5 pg (27.0-33.0); Mean Corpuscular Volume 79.3 fL (80-95); Mean Platelet Volume 9.7 fL (8.0-11.0); Monocytes % 8.5; Neutrophils % 81.9; Platelet Count 357 x1000/uL (130-400); RBC 4.16 m/cumm (4.50-6.00); White Blood Cell Count 11.82 k/cumm (4.4-10.8)
[2018-05-08 09:41] LABS: Absolute Basophil Count 0.04 k/cumm (0.0-0.2); Absolute Eosinophil Count 0.22 k/cumm (0.0-0.7); Absolute Neutrophil Count 9.68 k/cumm (1.2-6.7)
[2018-05-08 09:54] LABS: ALT 20 U/L (12-78); AST 10 U/L (15-37); Albumin 2.5 g/dL (3.4-5.0); Alkaline Phosphatase 160 U/L (46-116); Anion Gap 12.2 mmol/L (3-11); BUN 42 mg/dL (7-18); Bilirubin, Total 0.2 mg/dL (0.2-1.0); C-Reactive Protein 1.46 mg/dL (0.0-0.3); CO2 20.8 mmol/L (21.0-32.0); CREATININE 2.04 mg/dL (0.70-1.30); Calcium 8.5 mg/dL (8.5-10.1); Chloride 108 mmol/L (98-107); Estimated GFR 33.59 (mL/min/1.73m2); Glucose 303 mg/dL (70-100); Potassium 4.2 mmol/L (3.5-5.1); Sodium 141 mmol/L (136-145); Total Protein 6.3 g/dL (6.4-8.2)
[2018-05-08 14:21] LABS: Vancomycin, Trough 21.2 ug/mL (10.0-20.0)
== END 2018-05-08 09:32 ==
LOC: LBN 09:12
PROVIDERS: PCP Family Medicine; Visit Provider Family Medicine
DX: R78.81 Bacteremia (principal); Z51.81 Encounter for therapeutic drug level monitoring; Z79.2 Long term (current) use of antibiotics
CPT/HCPCS: 80053; 80202; 85025; 86140

== ENCOUNTER 2018-05-11 09:31 | Outpatient (REF) | payer MEDICARE, MEDICAID, SELFPAY | END 2018-05-11 09:51 | LOC: LBN 09:31 | PROVIDERS: PCP Family Medicine; Visit Provider Family Medicine | DX: R78.81 Bacteremia (principal); Z79.2 Long term (current) use of antibiotics | CPT/HCPCS: 80202 ==

== ENCOUNTER 2018-05-14 08:56 | Outpatient (REF) | payer MEDICARE, MEDICAID, SELFPAY ==
[2018-05-14 10:14] LABS: Vancomycin, Trough 16.1 ug/mL (10.0-20.0)
== END 2018-05-14 09:16 ==
LOC: LBN 08:56
PROVIDERS: PCP Family Medicine; Visit Provider Family Medicine
DX: R78.81 Bacteremia (principal); Z51.81 Encounter for therapeutic drug level monitoring; Z79.2 Long term (current) use of antibiotics
CPT/HCPCS: 80202

== ENCOUNTER 2018-05-21 11:52 | Outpatient (REF) | payer MEDICARE, MEDICAID, SELFPAY ==
[2018-05-21 12:35] LABS: C-Reactive Protein 0.84 mg/dL (0.0-0.3)
[2018-05-21 12:51] LABS: Vancomycin, Trough 17.4 ug/mL (10.0-20.0)
== END 2018-05-21 12:12 ==
LOC: LBN 11:52
PROVIDERS: PCP Family Medicine; Visit Provider Family Medicine
DX: I10 Essential (primary) hypertension (principal); R50.9 Fever, unspecified; R53.83 Other fatigue
CPT/HCPCS: 85652; 80202; 85025; 86140

== ENCOUNTER 2018-05-22 13:22 | Outpatient (REF) | payer MEDICARE, MEDICAID, SELFPAY ==
[2018-05-22 14:56] LABS: Abs Immature Grans 0.23 k/cumm (0.0-0.09); Absolute Basophil Count 0.05 k/cumm (0.0-0.2); Absolute Eosinophil Count 0.25 k/cumm (0.0-0.7); Absolute Lymphocyte Count 0.83 k/cumm (1.2-3.4); Basophils % 0.4; Eosinophils % 2.1; HCT 35.5 % (40.0-50.0); HGB 11.3 g/dL (13.5-17.5); Immature Grans % 1.9; Mean Corp. HGB Concentration 31.8 g/dL (32.0-36.0); Mean Corpuscular Volume 75.5 fL (80-95); Mean Platelet Volume 10.4 fL (8.0-11.0); Monocytes % 8.1; Neutrophils % 80.5; Platelet Count 332 x1000/uL (130-400); RBC Distribution Width 17.9 % (11.8-14.1); White Blood Cell Count 11.91 k/cumm (4.4-10.8)
[2018-05-22 15:00] LABS: Absolute Monocyte Count 0.96 k/cumm (0.11-0.7); Absolute Neutrophil Count 9.59 k/cumm (1.2-6.7)
[2018-05-22 15:46] LABS: ESR 14 MM/HR (1-20)
== END 2018-05-22 13:42 ==
LOC: LBN 13:22
PROVIDERS: PCP Family Medicine; Visit Provider Family Medicine
DX: R50.9 Fever, unspecified (principal); R53.83 Other fatigue
CPT/HCPCS: 85652; 85025

== ENCOUNTER 2018-05-26 01:49 | Outpatient (CLI) | payer MEDICARE, MEDICAID, SELFPAY ==
--- NOTE | 2018-05-26 10:30 | DI.NM_ITS ---
SYMPTOMS/DIAGNOSIS: PAIN, CHRONIC BACTEREMIA, DECREASED RANGE OF MOTION, ? INFECTED HARDWARE THREE-PHASE BONE SCAN: The study was conducted according to the usual protocol with intravenous administration of 23.8 mCi of technetium 99m MDP. A flow study of the elbow and forearm was obtained. There is some slight increased activity in the flow images about the right elbow. Delayed imaging reveals increased activity in the right elbow. The findings are consistent with the patient's previous surgery. Whole body images reveal increased activity in the right shoulder. A small region of increased activity involving the anterior portion of the right 2nd rib is demonstrated. There are small regions of increased activity in the mid and lower lumbar spine in this patient with a dextrorotoscoliotic deformity. Also, there is increased activity involving the left wrist and both knees, the findings consistent with DJD. SUMMARY: Increased activity is noted in the right elbow and would be consistent with the patient's prior bony trauma and subsequent orthopedic surgery.
--- NOTE | 2018-05-26 11:22 | DI.RAD_ITS ---
SYMPTOMS/DIAGNOSIS: ELBOW PAIN, DECREASED RANGE OF MOTION, CHRONIC BACTEREMIA RIGHT ELBOW: When compared with the previous study of 04/26, there has been no evident interval change. Again noted are the old fracture deformities of the distal humerus and proximal ulna. Orthopedic hardware in place. There is no evidence of a superimposed acute fracture or dislocation.
== END 2018-05-26 02:09 ==
PROVIDERS: PCP Family Medicine; Visit Provider Family Medicine
DX: M25.521 Pain in right elbow (principal); M25.821 Other specified joint disorders, right elbow; R78.81 Bacteremia; Z47.89 Encounter for other orthopedic aftercare
CPT/HCPCS: 73080; 78315

== ENCOUNTER 2018-05-28 09:26 | Outpatient (REF) | payer MEDICARE, MEDICAID, SELFPAY ==
[2018-05-28 09:46] LABS: Vancomycin, Trough 18.3 ug/mL (10.0-20.0)
== END 2018-05-28 09:46 ==
LOC: LBN 09:26
PROVIDERS: PCP Family Medicine; Visit Provider Family Medicine
DX: R78.81 Bacteremia (principal); Z79.2 Long term (current) use of antibiotics
CPT/HCPCS: 80202

== ENCOUNTER 2018-06-04 12:36 | Outpatient (REF) | payer MEDICARE, MEDICAID, SELFPAY ==
[2018-06-04 13:46] LABS: TSH 0.27 uIU/mL (0.358-3.74)
[2018-06-04 13:50] LABS: Hemoglobin A1C 8.4 % (4.5-6.2)
[2018-06-04 13:53] LABS: Vancomycin, Trough 24.9 ug/mL (10.0-20.0)
== END 2018-06-04 12:56 ==
LOC: LBN 12:36
PROVIDERS: Visit Provider Family Medicine
DX: R78.81 Bacteremia (principal); T36.95XA Adverse effect of unspecified systemic antibiotic, initial encounter; E11.40 Type 2 diabetes mellitus with diabetic neuropathy, unspecified; R53.83 Other fatigue
CPT/HCPCS: 80202; 83036; 84443

== ENCOUNTER 2018-06-08 09:08 | Inpatient (IN) | payer MEDICARE, MEDICAID, SELFPAY ==
[2018-06-08] VITALS (128 sets, daily range): BP systolic 96–154; BP diastolic 59–100; PULSE 47–147; RESP 13–26; TEMP 36.2–37.4; O2SAT 93–100
--- NOTE | 2018-06-08 09:50 | DI.CT_ITS ---
SYMPTOM/DIAGNOSIS: ABD PAIN, VOMITING, MULTIPLE SURGERIES ABDOMEN AND PELVIC CT: CT examination of the abdomen and pelvis was performed without contrast administration. Images obtained through the lung bases are unremarkable. The liver has a questionably nodular contour, please correlate with clinical possibility of cirrhosis. There is a cholecystostomy catheter in position with multiple gallstones. Mild pericholecystic fat edema may be present. No gross abscess identified. Pancreas appears intact. No biliary dilatation is seen. Spleen is unremarkable in appearance. Adrenals and kidneys are unremarkable except for left renal cortical atrophy. No abdominal aortic aneurysm is seen. There is an enterostomy in the right lower quadrant which is unremarkable in appearance and this appears to be an ileostomy. No focal small bowel abnormality is seen. No evidence of obstruction. No gross abdominal or pelvic adenopathy. No abscess identified. CONCLUSION: No evidence of acute intra-abdominal process.
[2018-06-08 10:04] LABS: Lactate-non-spesis 1.1 mmol/l (0.6-1.4)
[2018-06-08 10:05] LABS: Abs Immature Grans 0.06 k/cumm (0.0-0.09); HCT 43.4 % (40.0-50.0); HGB 14.6 g/dL (13.5-17.5); Mean Corp. HGB Concentration 33.6 g/dL (32.0-36.0); Mean Corpuscular Hemoglobin 23.8 pg (27.0-33.0); Mean Corpuscular Volume 70.8 fL (80-95); Mean Platelet Volume 10.3 fL (8.0-11.0); RBC 6.13 m/cumm (4.50-6.00); RBC Distribution Width 18.3 % (11.8-14.1); White Blood Cell Count 14.16 k/cumm (4.4-10.8)
[2018-06-08] MEDS: Ondansetron 4 MG/2 ML VIAL IVP (10:07)
[2018-06-08] MEDS: Breeza Beverage 473 ML BTL PO ×2 (10:15→10:16)
[2018-06-08] MEDS: Omnipaque 350 MG/ML 50 ML BTL PO (10:15)
[2018-06-08 10:28] LABS: Absolute Eosinophil Count 0.57 k/cumm (0.0-0.7); Absolute Neutrophil Count 9.91 k/cumm (1.2-6.7); Platelet Count 468 x1000/uL (130-400); Troponin I 0.08 ng/mL (0.00-0.06)
[2018-06-08 10:29] LABS: Absolute Basophil Count 0.14 k/cumm (0.0-0.2); Anisocytosis 2+; Basophilic Stippling Present; Diff Comment Manual Differential; Hypochromasia 2+; Microcytosis 2+; Nucleated RBC 1 /100WBC; Poikilocytes 3+; Polychromasia Present
[2018-06-08 10:34] LABS: ALT 15 U/L (12-78); AST 12 U/L (15-37); Albumin 2.9 g/dL (3.4-5.0); Alkaline Phosphatase 310 U/L (46-116); Anion Gap 18.1 mmol/L (3-11); BUN 69 mg/dL (7-18); Bilirubin, Total 0.3 mg/dL (0.2-1.0); CO2 12.9 mmol/L (21.0-32.0); Chloride 98 mmol/L (98-107); Estimated GFR 17.06 (mL/min/1.73m2); Glucose 240 mg/dL (70-100); Lipase 130 U/L (73-393); Potassium 4.8 mmol/L (3.5-5.1); Sodium 129 mmol/L (136-145); Total Protein 7.6 g/dL (6.4-8.2)
[2018-06-08 10:38] LABS: CREATININE 3.67 mg/dL (0.70-1.30)
[2018-06-08 10:45] LABS: Calcium 9.2 mg/dL (8.5-10.1)
[2018-06-08 13:38] LABS: Bilirubin Negative (Negative); Blood Small (Negative); Clarity Cloudy; Glucose Negative (Negative); Ketones Negative (Negative); Leukocyte Esterase Moderate (Negative); Nitrite Negative (Negative); Urobilinogen 0.2 EU/dL (Up TO 0.2); pH 5.5 (5-8)
[2018-06-08 13:49] LABS: C & S Indicated? Yes; WBC >50 HPF (0-5)
[2018-06-08 14:22] LABS: Troponin I 0.06 ng/mL (0.00-0.06)
--- NOTE | 2018-06-08 16:05 | W.ED.GENAD ---
Discharge Plan Disposition Patient Disposition: [facility] INPATIENT Condition: Stable Discharge Details Chief Complaint: Nausea/Vomit/Diar Clinical Impression: A-fib, Acute kidney injury Admit Date/Time: 06/08/18 17:23 Admit Provider: Ariel Bravo Attending Provider: Ariel Bravo Primary Care Provider: Anne Horowitz ED Provider: Dell Romo Discharge Data Discharge Date/Time-TO BE ENTERED AT DEPARTURE: 06/08/18 18:00 Medical Decision Making This is a 58-year-old male with a notably complicated past medical history renal disease, hypertension, previous cardiac arrest secondary to electrolyte dysfunction, 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 which they thought was significant for dark colored emesis, however the patient clearly states that he drank a Coca-Cola prior to the episode of vomiting. He also admits to generalized abdominal pain mild chest pain. Initial physical exam demonstrate evidence of tachycardia, shift shift shows atypical rhythm, difficult to differentiate between atrial fibrillation versus flutter. P wave morphology appears consistent for most complexes however are certainly beats where the P wave is component of the QRS complex. The patient demonstrates mild tenderness throughout on palpation of his abdomen. Gallbladder drainage tube appears intact, ostomy site is in place, no blood or other abnormalities in stool. Urine is draining well from his [place]. Differential is broad, cardiac etiology, infectious etiology, certainly on the differential in conjunction with electrolyte abnormality. Will perform laboratory workup, get imaging, rehydrate and reassess. 4:50 PM Patient's laboratory workup is returned, demonstrates evidence of an acute kidney injury with worsening renal function with a creatinine at 3.67 however his potassium is 4.8, he does have an elevated BUN at 70, sodium of 129, white count of 14, mild left shift, no bandemia. He does have an anion gap of 18.1. Troponin is 0.08 initially, and then repeat troponin is 0.06. Contact [facility] and discussed the case with cardiology, they feel that this is most likely demand ischemia, and not actual ACS. Additionally they agree that there is a component of atrial flutter versus fibrillation on EKG which is certainly new for the patient. Did give an initial dose of 10 of Cardizem, which notably slowed his rate down, and demonstrates findings on the monitor consistent with a paroxysmal A. fib a flutter going in and out of sinus rhythm. Cardiology does recommend holding off on transfer for the time being, as well as getting an echocardiogram, and close management. The CT scan for the abdomen per Dr. Haq demonstrates no acute process or change, he certainly has a surgically hostile abdomen with his multiple previous surgeries, there does not appear to be any acute concerning etiology or change noted in the abdomen at this time. I did contact the hospitalist , he does agree with the plan except the patient to admission to the ICU. Patient will be admitted for further management, he was started on a Cardizem drip, urinalysis does show evidence of greater than 50 WBCs, however Downing is in place. Pending culture. I have extensively reviewed the treatment plan with the patient. I have addressed all patient concerns at this time. I have also discussed the plan with the admitting physician and they agree with the current assessment and plan and have agreed to assume responsibility for the patient. All parties demonstrate verbal understanding and agreement with our assessment and plan at this time. EKG 9: 36 Rate 124, QTc 399, QRS 116, atrial flutter versus fibrillation, nonspecific ST depressions noted in V6 and V5, T wave inversions in V3 through V6, no significant ST elevation 7 nonspecific less than 1 mm elevation in V2. These are definite changes from previous EKG from 05/04/18 HPI General Date/Time Provider Initiated Documentation: 06/08/18 09:34. HPI Narrative: This is a 58-year-old male with a past medical history of ileostomy, chronic gallbladder drain, chronic kidney disease, type 2 diabetes, previous cardiac arrest secondary to electrolyte imbalance, currently on vancomycin for endocarditis, who presents today after being sent in by the [facility] for evaluation of vomiting, generalized abdominal pain chest pain tachycardia. Patient is a poor historian, however he admits to mild generalized epigastric abdominal pain for the last 4 days, one episode of vomiting which occurred today which she states was the color of cola however he just recently drink cola prior to vomiting. He has a history of notable small bowel removal secondary to Crohn's disease. Does admit to questions pain lateral chest pain, but denies any severe chest pain, tearing sensation, shortness of breath. He denies any diarrhea, new numbness, tingling, or weakness. He is still urinating through his Downing. He has no other complaints at this time. Related Data Home Medications Medication Instructions Recorded Confirmed aspirin [Aspirin Low Dose] 81 mg PO BID 12/23/17 06/08/18 carbamazepine 100 mg PO TID 12/23/17 06/08/18 cyanocobalamin (vitamin B-12) 1,000 mcg PO DAILY 12/23/17 06/08/18 folic acid 1 mg PO DAILY 12/23/17 04/25/18 loperamide 2 mg PO QID PRN 12/23/17 06/08/18 omeprazole 20 mg PO DAILY 12/23/17 06/08/18 amlodipine 10 mg PO DAILY #0 tab 12/31/17 06/08/18 clonidine HCl [Catapres] 0.3 mg PO TID #0 tab 12/31/17 06/08/18 ferrous sulfate 325 mg PO BID #0 tab 12/31/17 04/25/18 acetaminophen [Tylenol] 325 - 650 mg PO Q4H PRN PRN #0 tab 02/10/18 06/08/18 hydralazine 10 mg PO TID #0 tab 02/10/18 06/08/18 hydroxyzine HCl 25 mg PO Q6H PRN PRN #0 tab 02/10/18 06/08/18 magnesium chloride [Mag 64] 64 mg PO BID #0 tab 02/10/18 04/25/18 terazosin 4 mg PO BID #0 cap 02/10/18 06/08/18 Centrum Complete 1 tab PO DAILY 03/01/18 06/08/18 Lantus Solostar U-100 Insulin 60 unit SUBCUT DAILY 03/01/18 06/08/18 Novolog Flexpen U-100 Insulin 0 units SUBCUT 0730,1130,1630 03/01/18 06/08/18 ascorbic acid (vitamin C) [Vitamin 1 tab PO BID 03/01/18 06/08/18 C] ergocalciferol (vitamin D2) See Rx Instructions .ROUTE .COMPLEX 03/01/18 06/08/18 [Vitamin D2] levothyroxine 0.5 tab PO DAILY 03/01/18 06/08/18 metoprolol succinate 25 mg PO DAILY 03/03/18 06/08/18 venlafaxine 75 mg PO DAILY 03/03/18 06/08/18 acidophilus-pectin, citrus 1 cap PO TID #0 tab 03/24/18 06/08/18 oxycodone 5 mg PO Q8H PRN #30 cap 05/06/18 06/08/18 prednisone 50 mg PO DAILY #0 tab 05/06/18 04/25/18 risperidone [Risperdal] 3 mg PO HS #30 tab 05/06/18 06/08/18 trazodone 50 mg PO HS #30 tab 05/06/18 06/08/18 Hydrocortef 10 mg PO BID 06/08/18 furosemide 40 mg PO DAILY 06/08/18 06/08/18 vancomycin 500 mg IV .[id number] 06/08/18 06/08/18 Previous Rx's Medication Instructions Recorded amlodipine 10 mg PO DAILY #0 tab 12/31/17 clonidine HCl [Catapres] 0.3 mg PO TID #0 tab 12/31/17 ferrous sulfate 325 mg PO BID #0 tab 12/31/17 acetaminophen [Tylenol] 325 - 650 mg PO Q4H PRN PRN #0 tab 02/10/18 hydralazine 10 mg PO TID #0 tab 02/10/18 hydroxyzine HCl 25 mg PO Q6H PRN PRN #0 tab 02/10/18 magnesium chloride [Mag 64] 64 mg PO BID #0 tab 02/10/18 terazosin 4 mg PO BID #0 cap 02/10/18 acidophilus-pectin, citrus 1 cap PO TID #0 tab 03/24/18 oxycodone 5 mg PO Q8H PRN #30 cap 05/06/18 prednisone 50 mg PO DAILY #0 tab 05/06/18 risperidone [Risperdal] 3 mg PO HS #30 tab 05/06/18 trazodone 50 mg PO HS #30 tab 05/06/18 Allergies Allergy/AdvReac Type Severity Reaction Status Date / Time No Known Allergies Allergy Unverified 06/08/18 10:57 General Stated Complaint: Nausea/Vomit/Diar YVES: 3 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 (Acute) 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) Palliative care encounter (Acute) Pulmonary hypertension (Chronic) Toxic metabolic encephalopathy (Resolved) Advance directive on file (Chronic) Chronic cholecystitis (Chronic) 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 2 diabetes mellitus (Ruled-out) HCAP (healthcare-associated pneumonia) (Resolved) MRSA bacteremia (Acute) Ambulatory dysfunction (Chronic) Diabetic foot ulcer (Chronic) Poorly controlled type 2 diabetes mellitus with circulatory disorder (Chronic) Adrenal insufficiency (Chronic) CKD (chronic kidney disease) (Chronic) Cardiopulmonary arrest with successful resuscitation (Resolved) Heme positive stool (Chronic) Sepsis (Resolved) Pedal edema (Chronic) Chronic insomnia (Chronic) Hypertension (Chronic) Chronic pain (Chronic) Hypothyroidism (Chronic) Obesity (Chronic) Back pain (Chronic 06/21/13) Inability to get out of bed (Chronic 06/21/13) Poor self care (Chronic 06/21/13) Chronic bipolar disorder (Chronic) CAD (coronary artery disease) (Chronic) Dyslipidemia (Chronic) Rheumatoid arthritis (Chronic) Osteoarthritis of both knees (Chronic) Cholelithiasis (Chronic) Impaired mobility and ADLs (Chronic) Hemorrhagic cystitis (Inactive) Anemia (Chronic) Chronic anxiety (Chronic) Ulcerative colitis (Chronic) Surgical History History of insertion of T-tube into biliary tract (Chronic) S/P colectomy (Chronic) Arthroplasty of knee (Resolved 03/18/12) Fracture, Open Treatment (Resolved) Social History Smoking/Tobacco Use Status: Never Drug use: Occasionally Housing: fpc Do you feel safe in your relationship?: Yes Exam Narrative Exam Narrative: 1.Const: Well-nourished, Well-developed, appearing stated age 2.Eyes: PERRL, no conjunctival injection, and symmetrical lids. 3.ENT: Atraumatic external nose and ears. Moist MM. Neck: Symmetric, trachea midline, No thyromegaly. 4.CVS: +S1/S2, No murmurs or gallops. Peripheral pulses 2+ and equal in all extremities. Brisk capillary refill in all extremities. 5.RESP: Unlabored respiratory effort. Mild crackles in the bases. No rhonchi or rales 6.GI: Soft, Nondistended, mild generalized tenderness throughout, no hepatosplenomegaly. No guarding or rebound. Gallbladder drain tube is in place, ileostomy site is in place, no blood in the stool. Stoma is pink and moist. 7.MSK: Normocephalic/Atraumatic, Extremities w/o deformity or ttp No cyanosis or clubbing, Normal movement of all extremities 8.Skin: Warm, pale, diaphoretic 9.Neuro: nursing home director II-XII grossly intact. Sensation grossly intact, no focal neurologic deficits. 10.Psych: (AAO) x3. Appropriate mood and affect Course Vital Signs Temperature 36.2 C L 06/08/18 09:16 Pulse 133 H 06/08/18 09:16 Respiratory Rate 19 06/08/18 09:16 Blood Pressure 124/78 06/08/18 09:16 Pulse Oximetry 97 06/08/18 09:16 Temperature 36.5 C 06/08/18 12:59 Temperature Source Temporal Artery Scan 06/08/18 12:59 Pulse 132 H 06/08/18 14:02 Pulse 139 H 06/08/18 14:02 Respiratory Rate 22 06/08/18 14:02 Respiratory Effort Non-Labored 06/08/18 09:16 Blood Pressure 133/85 06/08/18 14:02 Blood Pressure Mean 96 06/08/18 14:02 Blood Pressure Position Supine 06/08/18 09:16 Pulse Oximetry 98 06/08/18 14:02 Oxygen Delivery Method Room Air 06/08/18 12:59 Oxygen Flow Rate 0 06/08/18 12:59 Pain Level 8 06/08/18 12:59 Comment 06/08/18 12:59 Lab/Test Results Lab/Test Results: 06/08/18 13:30 Urine - Reflex from Ua Urine Culture - Pending Laboratory Tests Range/Units 06/08/18 06/08/18 06/08/18 10:00 10:00 10:00 WBC (4.4-10.8) k/cumm 14.16 H RBC (4.50-6.00) m/cumm 6.13 H Hgb (13.5-17.5) g/dL 14.6 Hct (40.0-50.0) % 43.4 MCV (80-95) fL 70.8 L MCH (27.0-33.0) pg 23.8 L MCHC (32.0-36.0) g/dL 33.6 RDW (11.8-14.1) % 18.3 H Plt Count (130-400) x1000/uL 468 H MPV (8.0-11.0) fL 10.3 Immature Gran % 0.0 Neutrophils % 70.0 Lymphocytes % 12.0 Monocytes % 12.0 Eosinophils % 4.0 Basophils % 1.0 Absolute Neutrophils (1.2-6.7) k/cumm 9.91 H Absolute Lymphocytes (1.2-3.4) k/cumm 1.70 Absolute Monocytes (0.11-0.7) k/cumm 1.70 H Absolute Eosinophils (0.0-0.7) k/cumm 0.57 Absolute Basophils (0.0-0.2) k/cumm 0.14 Nucleated RBCs /100WBC 1 Differential Comment Manual differential RBC Morphology See below Polychromasia Present Hypochromasia 2+ Poikilocytosis 3+ Basophilic Stippling Present Anisocytosis 2+ Microcytosis 2+ Sodium (136-145) mmol/L 129 L Potassium (3.5-5.1) mmol/L 4.8 Chloride (98-107) mmol/L 98 Carbon Dioxide (21.0-32.0) mmol/L 12.9 L Anion Gap (3-11) mmol/L 18.1 H BUN (7-18) mg/dL 69 H Creatinine (0.70-1.30) mg/dL 3.67 H* Estimated GFR/1.73 m2 (mL/min/1.73m2) 17.06 Glucose (70-100) mg/dL 240 H Lactate (0.6-1.4) mmol/l Calcium (8.5-10.1) mg/dL 9.2 Total Bilirubin (0.2-1.0) mg/dL 0.3 AST (15-37) U/L 12 L ALT (12-78) U/L 15 Alkaline Phosphatase (46-116) U/L 310 H Troponin I (0.00-0.06) ng/mL 0.08 H* Total Protein (6.4-8.2) g/dL 7.6 Albumin (3.4-5.0) g/dL 2.9 L Lipase (73-393) U/L 130 Urine Color (Yellow) Urine Clarity Urine pH (5-8) Ur Specific [place] (1.005-1.025) Urine Protein (Negative) mg/dL Urine Ketones (Negative) mg/dL Urine Blood (Negative) Urine Nitrite (Negative) Urine Bilirubin (Negative) Urine Urobilinogen (Up TO 0.2) EU/dL Ur Leukocyte Esterase (Negative) Urine RBC Urine WBC (0-5) HPF Ur Epithelial Cells Urine Crystals Urine Bacteria Urine Mucus Ur Culture Indicated? Urine Glucose (Negative) mg/dL Range/Units 06/08/18 06/08/18 06/08/18 10:00 12:47 13:30 WBC (4.4-10.8) k/cumm RBC (4.50-6.00) m/cumm Hgb (13.5-17.5) g/dL Hct (40.0-50.0) % MCV (80-95) fL MCH (27.0-33.0) pg MCHC (32.0-36.0) g/dL RDW (11.8-14.1) % Plt Count (130-400) x1000/uL MPV (8.0-11.0) fL Immature Gran % Neutrophils % Lymphocytes % Monocytes % Eosinophils % Basophils % Absolute Neutrophils (1.2-6.7) k/cumm Absolute Lymphocytes (1.2-3.4) k/cumm Absolute Monocytes (0.11-0.7) k/cumm Absolute Eosinophils (0.0-0.7) k/cumm Absolute Basophils (0.0-0.2) k/cumm Nucleated RBCs /100WBC Differential Comment RBC Morphology Polychromasia Hypochromasia Poikilocytosis Basophilic Stippling Anisocytosis Microcytosis Sodium (136-145) mmol/L Potassium (3.5-5.1) mmol/L Chloride (98-107) mmol/L Carbon Dioxide (21.0-32.0) mmol/L Anion Gap (3-11) mmol/L BUN (7-18) mg/dL Creatinine (0.70-1.30) mg/dL Estimated GFR/1.73 m2 (mL/min/1.73m2) Glucose (70-100) mg/dL Lactate (0.6-1.4) mmol/l 1.1 Calcium (8.5-10.1) mg/dL Total Bilirubin (0.2-1.0) mg/dL AST (15-37) U/L ALT (12-78) U/L Alkaline Phosphatase (46-116) U/L Troponin I (0.00-0.06) ng/mL 0.06 Total Protein (6.4-8.2) g/dL Albumin (3.4-5.0) g/dL Lipase (73-393) U/L Urine Color (Yellow) Yellow Urine Clarity Cloudy Urine pH (5-8) 5.5 Ur Specific [place] (1.005-1.025) 1.020 Urine Protein (Negative) mg/dL 100 H Urine Ketones (Negative) mg/dL Negative Urine Blood (Negative) Small H Urine Nitrite (Negative) Negative Urine Bilirubin (Negative) Negative Urine Urobilinogen (Up TO 0.2) EU/dL 0.2 Ur Leukocyte Esterase (Negative) Moderate H Urine RBC Not Applicable Urine WBC (0-5) HPF >50 Ur Epithelial Cells Not Applicable Urine Crystals Not Applicable Urine Bacteria Not Applicable Urine Mucus Not Applicable Ur Culture Indicated? Yes Urine Glucose (Negative) mg/dL Negative
[2018-06-08] MEDS: dilTIAZem 25 MG/5 ML VIAL 10 MG IVP (16:10)
[2018-06-08] MEDS: dilTIAZem 125 MG in Normal Saline 100 ML IV (17:11)
[2018-06-08] MEDS: Hydrocortisone SOD SUC. 100 MG VIAL IVP (18:44)
[2018-06-08] MEDS: Heparin 5,000 UNITS/ML VIAL 5000 UNITS SC (18:45)
[2018-06-08] MEDS: Normal Saline 1,000 ML 150 ML IV ×2 (18:45→23:57)
--- NOTE | 2018-06-08 19:16 | W.PM.HP.N ---
Date of service: 06/08/18 Time of Service: 19:16 Assessment and Plan (1) Acute on chronic kidney failure: Current visit: Yes Status: Acute Patient's baseline creatinine and BUN are 2-2.4and 42-50 respectively. This is probably d/t hypovolemia and possible sepsis in setting of CKD from DM and PAD. I will continue to hydrate him w/ NS and monitor his U.O. with placment of ruiz w/ urimeter and check renal US in the a.m. to r/o pyelonephritis or renal stones and obstructive uropathy Qualifiers: Acute renal failure type: unspecified Chronic kidney disease stage: stage 4 (severe) Qualified Code(s): N17.9 - Acute kidney failure, unspecified; N18.4 - Chronic kidney disease, stage 4 (severe) (2) UTI (urinary tract infection): Current visit: Yes Status: Acute Patient had urine cultures done but no blood cultures. Levaquin at renal dosing has been started. I will get blood cultures and check renal U.S. in the a.m. Qualifiers: Hematuria presence: without hematuria Urinary tract infection type: site unspecified Qualified Code(s): N39.0 - Urinary tract infection, site not specified (3) Dehydration: Current visit: Yes Status: Acute aggressive IV fluid hydration with close monitoring of his renal output and monitor for fluid overload (4) Lactic acidosis: Current visit: Yes Status: Acute probably on basis of sepsis; start aggressive hydration, monitor U.O. and BP and HR; monitor for signs of volume overload. (5) Atrial flutter, paroxysmal: Current visit: Yes Status: Acute New diagnosis for Brendan probably precipitated by his infection and dehydration however need to r/o ischemia. Plan is to control HR w/ iv diltiazem; check serial troponins (probably minimally elevated d/t demand ischemia; does not appear to be NSTEMI (6) Elevated troponin I level: Current visit: Yes Status: Acute d/t P. Atrial flutter; control HR and treat for sepsis, hydration, check serial troponins. (7) MRSA bacteremia: Current visit: No Status: Acute Patient is near the end of his 6 weeks of vancomycin. I will check his trough level tomorrow. He should have repeat blood cultures done now to be sure that his bacteremia has cleared. Due his presentation suggestive of early sepsis, he will get blood cultures anyway. If initial blood cultures are negative then repeat random blood cultures should be done over the next week to be certain that his MRSA bacteremia cleared. He probably should receive suppressive antibiotics such as doxycycline anyway (8) Adrenal insufficiency: Current visit: No Status: Chronic Patient was recently switched from prednisone 10 mg per day to Hydrocort 10 mg BID. he has now been placed on stress dose corticosteroids in setting of acute infection/sepsis (9) Chronic cholecystitis: Current visit: No Status: Chronic T tube appears to be draining bile and his CT of his abdomen shows not complications; he has chronic cholelithiasis and as long as his biliary tube drains properly he should be ok. His abdominal exam is rather benign despite his c/o of abdominal pains for past 3 days and acute nausea and vomiting yesterday. He has no guarding nor any rebound tenderness and he has good bowel sounds in all 4 quads. He historically has request narcotics and Dr. Horowitz does not want him restarted on narcotics therefore I am going to stop his oxycodone. (10) 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: Current visit: Yes Status: Acute I will get wound culture from his great toe and ask Dr. Ashford to consult on him in the a.m. regarding whether or not these need debrided Qualifiers: Laterality: left Non-pressure ulcer stage: limited to breakdown of skin Qualified Code(s): E11.621 - Type 2 diabetes mellitus with foot ulcer; L97.521 - Non-pressure chronic ulcer of other part of left foot limited to breakdown of skin (11) Poorly controlled type 2 diabetes mellitus with circulatory disorder: Current visit: No Status: Chronic patient comes in w/ elevated glucose of 330, lactic acidosis; I do not think that he is in DKA as his urine ketones were negative. His glucose historically has been poorly controlled despite being on insulin. His glucose is exacerbated by chronic infections of his toes, MRSA bacteremia and adrenal insufficiency requiring chronic prednisone and recently switched to hydrocortef. He is now on stress dose steroids and in addition to an insulin resistant scale and his basal insulin, I am going to put him on meal carbohydrate coverage and NPH for steroid coverage. I do not think that his feet are ischemic; he has palpable DP and PT pulses. History of Present Illness Chief Complaint: nausea and vomiting Narrative: 58 yr old male resident of [facility] in [place], [place] who was sent to the ER for evaluation of generalized abdominal pain and single episode of acute emesis. Emesis was noted be dark colored however patient states that he drank a cola just before this happened. Patient has had abdominal discomfort for past 3 days. He has had no fevers, diarrhea and no hematemesis nor hematochezia. His PMH is significant for ileostomy for Crohn's disease. He has adrenal insufficiency d/t chronic corticosteroid use. He is currently finishing a 6 wk course of Vancomycin for MRSA endocarditis (April 26- June 07). He has CKD and type 2 DM poorly controlled requiring custodial insulin use and complicated by peripheral neuropathy and PAD. he has chronic bilateral great toe ulcers which were felt to be the cause of his MRSA bacteremia and endocarditis. Workup in the ER included telemetry and EKG that demonstrated new onset atrial flutter. Routine labs demonstrated worsening renal failure w/ creatinine of 3.67 and BUN of 69 (baseline is BUN 42 and creatine of 2.0 ). He was found to have a metabolic anion gap acidosis but his urine did not show any ketones. His blood lactate was initially normal at 1.1 but mark to 1.6. WBC were elevated at 14,000 w/ lefft shift and his UA was suspicious for UTI w/ small amount of blood, moderate leukocyte esterase and over 50 WBC/HPF but nitrites were negative. His electrolytes demonstrated hyponatremia of 129. CT of his abdomen and pelvis did not show any acute pathology and his biliary tube appeared to be in proper place and functioning. Urine cultures but not blood cultures were obtained in the ER and he was started on Levaquin for uti possible urosepsis. He is now admitted to ICU for treatment of new onset atrial flutter, UTI w/ sepsis, JESUS in setting of CKD, hyponatremic hypovolemia, dehydration, as well as his chronic conditions of DM, adrenal insufficiency. He was given stress dose hydrocortisone. Review of Systems Constitutional Reports system reviewed and no additional complaints, except as docu, Reports chills and Reports fatigue Eyes Reports system reviewed and no additional complaints, except as docu ENT Reports system reviewed and no additional complaints, except as docu Cardiovascular Denies chest pain, Denies lightheadedness and Denies dyspnea Respiratory Denies change in phlegm color, Reports cough, Denies excessive phlegm production and Denies dyspnea Gastrointestinal Reports abdominal pain, Reports nausea and Reports vomiting Genitourinary Denies hematuria, Denies dysuria, Denies urinary frequency, Denies urinary hesitancy and Denies urinary incontinence Musculoskeletal Reports arthralgias Integumentary/Breasts Reports wounds (chronic toe ulcers over both great toes) Neurologic Reports sensory deficit (both feet) Psychiatric Reports system reviewed and no additional complaints, except as docu Endocrine Reports fatigue and Reports polydipsia Hematologic/Lymphatic Reports system reviewed and no additional complaints, except as docu Allergic/Immunologic Reports system reviewed and no additional complaints, except as docu PFSH Medical History 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 (Acute) 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) Palliative care encounter (Acute) Pulmonary hypertension (Chronic) Toxic metabolic encephalopathy (Resolved) Advance directive on file (Chronic) Chronic cholecystitis (Chronic) 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 2 diabetes mellitus (Ruled-out) HCAP (healthcare-associated pneumonia) (Resolved) MRSA bacteremia (Acute) Ambulatory dysfunction (Chronic) Diabetic foot ulcer (Chronic) Poorly controlled type 2 diabetes mellitus with circulatory disorder (Chronic) Adrenal insufficiency (Chronic) CKD (chronic kidney disease) (Chronic) Cardiopulmonary arrest with successful resuscitation (Resolved) Heme positive stool (Chronic) Sepsis (Resolved) Pedal edema (Chronic) Chronic insomnia (Chronic) Hypertension (Chronic) Chronic pain (Chronic) Hypothyroidism (Chronic) Obesity (Chronic) Back pain (Chronic 06/21/13) Inability to get out of bed (Chronic 06/21/13) Poor self care (Chronic 06/21/13) Chronic bipolar disorder (Chronic) CAD (coronary artery disease) (Chronic) Dyslipidemia (Chronic) Rheumatoid arthritis (Chronic) Osteoarthritis of both knees (Chronic) Cholelithiasis (Chronic) Impaired mobility and ADLs (Chronic) Hemorrhagic cystitis (Inactive) Anemia (Chronic) Chronic anxiety (Chronic) Ulcerative colitis (Chronic) Surgical History History of insertion of T-tube into biliary tract (Chronic) S/P colectomy (Chronic) Arthroplasty of knee (Resolved 03/18/12) Fracture, Open Treatment (Resolved) Social History Smoking/Tobacco Use Status: Never Drug use: Occasionally Housing: fdc Do you feel safe in your relationship?: Yes Meds Home Medications Medication Instructions Recorded Confirmed Type aspirin [Aspirin Low Dose] 81 mg PO BID 12/23/17 06/08/18 History carbamazepine 100 mg PO TID 12/23/17 06/08/18 History cyanocobalamin (vitamin B-12) 1,000 mcg PO DAILY 12/23/17 06/08/18 History folic acid 1 mg PO DAILY 12/23/17 04/25/18 History loperamide 2 mg PO QID PRN 12/23/17 06/08/18 History omeprazole 20 mg PO DAILY 12/23/17 06/08/18 History amlodipine 10 mg PO DAILY #0 tab 12/31/17 06/08/18 Rx clonidine HCl [Catapres] 0.3 mg PO TID #0 tab 12/31/17 06/08/18 Rx ferrous sulfate 325 mg PO BID #0 tab 12/31/17 04/25/18 Rx acetaminophen [Tylenol] 325 - 650 mg PO Q4H PRN PRN #0 tab 02/10/18 06/08/18 Rx hydralazine 10 mg PO TID #0 tab 02/10/18 06/08/18 Rx hydroxyzine HCl 25 mg PO Q6H PRN PRN #0 tab 02/10/18 06/08/18 Rx magnesium chloride [Mag 64] 64 mg PO BID #0 tab 02/10/18 04/25/18 Rx terazosin 4 mg PO BID #0 cap 02/10/18 06/08/18 Rx Centrum Complete 1 tab PO DAILY 03/01/18 06/08/18 History Lantus Solostar U-100 Insulin 60 unit SUBCUT DAILY 03/01/18 06/08/18 History Novolog Flexpen U-100 Insulin 0 units SUBCUT 0730,1130,1630 03/01/18 06/08/18 History ascorbic acid (vitamin C) [Vitamin 1 tab PO BID 03/01/18 06/08/18 History C] ergocalciferol (vitamin D2) See Rx Instructions .ROUTE .COMPLEX 03/01/18 06/08/18 History [Vitamin D2] levothyroxine 0.5 tab PO DAILY 03/01/18 06/08/18 History metoprolol succinate 25 mg PO DAILY 03/03/18 06/08/18 History venlafaxine 75 mg PO DAILY 03/03/18 06/08/18 History acidophilus-pectin, citrus 1 cap PO TID #0 tab 03/24/18 06/08/18 Rx oxycodone 5 mg PO Q8H PRN #30 cap 05/06/18 06/08/18 Rx prednisone 50 mg PO DAILY #0 tab 05/06/18 04/25/18 Rx risperidone [Risperdal] 3 mg PO HS #30 tab 05/06/18 06/08/18 Rx trazodone 50 mg PO HS #30 tab 05/06/18 06/08/18 Rx Hydrocortef 10 mg PO BID 06/08/18 History furosemide 40 mg PO DAILY 06/08/18 06/08/18 History vancomycin 500 mg IV .[id number] 06/08/18 06/08/18 History Allergies Allergy/AdvReac Type Severity Reaction Status Date / Time No Known Allergies Allergy Unverified 06/08/18 10:57 Exam Const General: cooperative and ill appearing chronically Nutritional Appearance: obese Orientation: alert, awake and oriented x3 HENMT Head: normal to inspection, no palpable skull fracture, normocephalic and atraumatic Ears: hearing grossly normal bilaterally General nose exam: external nose normal Face and sinus: normal facial exam Mouth: oropharynx normal, lip abnormal (dry and fissured), malodorous breath and other (dry mucous membranes) Teeth and gingiva: poor dentition (missing most of his teeth; couple of incisors appear to be infected) Throat: posterior oropharynx normal Neck Neck: normal visual inspection, full ROM, no lymphadenopathy, no meningeal signs, trachea midline, supple and no JVD Thyroid: thyroid normal Carotids: normal carotid upstroke Chest Chest: normal inspection of the chest and normal palpation of entire chest wall Cardio Jugular venous pressure: no JVD Palpation: normal PMI Rate: tachycardic Rhythm: abnormal rhythm regularly irregular Heart Sounds: no murmurs Pulses: posterior tibial pulses present bilaterally 1+ and diminished and dorsalis pedis pulses present bilaterally 2+ GI Inspection: non-distended, obesity and other (biliary tube in place in RUQ w/out erythema or induration around tube) Palpation: soft, no hepatosplenomegaly, no guarding, no hepatosplenomegaly and nontender Percussion: normal to percussion Auscultation: normal bowel sounds General: No CVA tenderness Male General Exam: Yes normal external exam Back/Spine/Pelvis Back: no CVA tenderness Cervical Spine: normal cervical lordosis Thoracic/Lumbar Spine: thoracic and lumbar spine normal to inspection Skin Lesions: lesion noted ulcer right plantar great toe , left plantar great toe Rashes: no rashes Psych Appearance: grossly normal Mental Status: mental status grossly normal Speech and Movement: speech and movement normal Mood: congruent mood Affect: normal affect Attitude: cooperative Thought Process: normal Thought Content: normal Insight: insight good Judgment: judgment good Results Imaging Abdomen CT scan report/results: report reviewed (CONCLUSION: No evidence of acute intra-abdominal process.) Labs : 06/09/18 06:15 06/09/18 06:15 Laboratory Results - last 24 hr 06/08/18 06/08/18 06/08/18 10:00 10:00 10:00 WBC 14.16 H RBC 6.13 H Hgb 14.6 Hct 43.4 MCV 70.8 L MCH 23.8 L MCHC 33.6 RDW 18.3 H Plt Count 468 H MPV 10.3 Immature Gran % 0.0 Neutrophils % 70.0 Lymphocytes % 12.0 Monocytes % 12.0 Eosinophils % 4.0 Basophils % 1.0 Absolute Neutrophils 9.91 H Absolute Lymphocytes 1.70 Absolute Monocytes 1.70 H Absolute Eosinophils 0.57 Absolute Basophils 0.14 Nucleated RBCs 1 Differential Comment Manual differential RBC Morphology See below Polychromasia Present Hypochromasia 2+ Poikilocytosis 3+ Basophilic Stippling Present Anisocytosis 2+ Microcytosis 2+ Sodium 129 L Potassium 4.8 Chloride 98 Carbon Dioxide 12.9 L Anion Gap 18.1 H BUN 69 H Creatinine 3.67 H* Estimated GFR/1.73 m2 17.06 Glucose 240 H Lactate Calcium 9.2 Total Bilirubin 0.3 AST 12 L ALT 15 Alkaline Phosphatase 310 H Troponin I 0.08 H* Total Protein 7.6 Albumin 2.9 L Lipase 130 Urine Color Urine Clarity Urine pH Ur Specific [place] Urine Protein Urine Ketones Urine Blood Urine Nitrite Urine Bilirubin Urine Urobilinogen Ur Leukocyte Esterase Urine RBC Urine WBC Ur Epithelial Cells Urine Crystals Urine Bacteria Urine Mucus Ur Culture Indicated? Urine Glucose 06/08/18 06/08/18 06/08/18 10:00 12:47 13:30 WBC RBC Hgb Hct MCV MCH MCHC RDW Plt Count MPV Immature Gran % Neutrophils % Lymphocytes % Monocytes % Eosinophils % Basophils % Absolute Neutrophils Absolute Lymphocytes Absolute Monocytes Absolute Eosinophils Absolute Basophils Nucleated RBCs Differential Comment RBC Morphology Polychromasia Hypochromasia Poikilocytosis Basophilic Stippling Anisocytosis Microcytosis Sodium Potassium Chloride Carbon Dioxide Anion Gap BUN Creatinine Estimated GFR/1.73 m2 Glucose Lactate 1.1 Calcium Total Bilirubin AST ALT Alkaline Phosphatase Troponin I 0.06 Total Protein Albumin Lipase Urine Color Yellow Urine Clarity Cloudy Urine pH 5.5 Ur Specific [place] 1.020 Urine Protein 100 H Urine Ketones Negative Urine Blood Small H Urine Nitrite Negative Urine Bilirubin Negative Urine Urobilinogen 0.2 Ur Leukocyte Esterase Moderate H Urine RBC Not Applicable Urine WBC >50 Ur Epithelial Cells Not Applicable Urine Crystals Not Applicable Urine Bacteria Not Applicable Urine Mucus Not Applicable Ur Culture Indicated? Yes Urine Glucose Negative Last Vital Signs Temp 37.4 C 06/08/18 18:55 Pulse 109 H 06/08/18 18:55 Resp 20 06/08/18 18:55 BP 105/79 06/08/18 18:35 Pulse Ox 100 06/08/18 18:55
[2018-06-08] MEDS: Normal Saline Flush 10 ML SYR (19:27)
[2018-06-08 20:06] LABS: Lactate-non-spesis 1.6 mmol/l (0.6-1.4)
[2018-06-08 20:26] LABS: Anion Gap 15.9 mmol/L (3-11); BUN 75 mg/dL (7-18); CO2 13.1 mmol/L (21.0-32.0); Calcium 9.1 mg/dL (8.5-10.1); Chloride 96 mmol/L (98-107); Estimated GFR 16.95 (mL/min/1.73m2); Glucose 330 mg/dL (70-100); Sodium 125 mmol/L (136-145)
[2018-06-08 20:33] LABS: Troponin I 0.05 ng/mL (0.00-0.06)
[2018-06-08 20:34] LABS: CREATININE 3.69 mg/dL (0.70-1.30)
[2018-06-08] MEDS: cloNIDine 0.1 MG TAB 0.3 MG PO (20:40)
[2018-06-08] MEDS: Aspirin E.C. 81 MG TABEC PO (20:40)
[2018-06-08] MEDS: Hydrocortisone 10 MG TAB PO (20:40)
[2018-06-08] MEDS: Ascorbic Acid 500 MG TAB 250 MG PO (20:40)
[2018-06-08] MEDS: carBAMazepine 100 MG CHEW PO (20:41)
[2018-06-08] MEDS: Ferrous Sulfate 325 MG TAB PO (20:41)
[2018-06-08] MEDS: hydrALAZINE 10 MG TAB PO (20:41)
[2018-06-08] MEDS: Lactobacillus Acidophilus CAP 1 CAP PO (20:41)
[2018-06-08] MEDS: levoFLOXacin 750 MG/150 ML BAG 100 MG IVPB (20:43)
[2018-06-08] MEDS: Terazosin 2 MG CAP 4 MG PO (20:43)
--- NOTE | 2018-06-08 20:49 | DI.RAD_ITS ---
SYMPTOM/DIAGNOSIS: COUGH, WHEEZING, DYSPNEA AP PORTABLE UPRIGHT CHEST: There is no evidence of localized air space consolidation. There is patchy mild interstitial thickening. There is no pleural effusion or pneumothorax. The heart is not enlarged. A left arm PICC line enters with its tip in the region of the cavoatrial junction SUMMARY: There has been slight interval improvement in aeration of the lungs with no significant air space consolidation identified.
[2018-06-08] MEDS: Normal Saline 1,000 ML 1000 ML IV (21:14)
--- NOTE | 2018-06-08 21:23 | DI.VRAD_ITS ---
EXAM: XR Chest, 1 View EXAM DATE/TIME: 06/08/2018 8:30 PM CLINICAL HISTORY: 58 years old, male; Signs and symptoms; Other: Cough, wheezing dyspnea TECHNIQUE: Imaging protocol: XR of the chest, 1 view. COMPARISON: SC XR PORTABLE CHEST AP 04/10/2018 2:15 AM FINDINGS: Tubes, catheters and devices: Left arm PICC with tip in the region of the cavoatrial junction. Lungs: Slight improvement in aeration of the lungs with no significant airspace consolidation. Patchy mild interstitial thickening. Pleural space: No significant pleural effusion. No pneumothorax. Heart/Mediastinum: No cardiomegaly. Bones/joints: Chronic appearing ostial lysis of the distal clavicles are stable, probably related to old trauma. IMPRESSION: 1. Left arm PICC with tip in the region of the cavoatrial junction. 2. Slight improvement in aeration of the lungs with no significant airspace consolidation. Patchy mild interstitial thickening. Dictated and Authenticated by: Sandra Santos MD. Ordering:[facility] Phillip Jackson MD
[2018-06-08] MEDS: Magnesium Chloride 64 MG TABCR PO (22:48)
[2018-06-08] MEDS: traZODone 50 MG TAB PO (22:48)
[2018-06-08] MEDS: risperiDONE 1 MG TAB 3 MG PO (22:48)
[2018-06-08] MEDS: Insulin Aspart 300 UNITS/3 ML PEN SC (22:49)
[2018-06-08] MEDS: Hydrocortisone SOD SUC. 100 MG VIAL 50 MG IVP (23:34)
[2018-06-09] VITALS (118 sets, daily range): BP systolic 106–169; BP diastolic 48–130; PULSE 38–153; RESP 10–35; TEMP 35.8–36.9; O2SAT 97–100
[2018-06-09 01:23] LABS: Lactate-non-spesis 1.1 mmol/l (0.6-1.4)
[2018-06-09] MEDS: Heparin 5,000 UNITS/ML VIAL 5000 UNITS SC ×2 (01:28→09:11)
[2018-06-09 01:38] LABS: Anion Gap 14.7 mmol/L (3-11); BUN 69 mg/dL (7-18); CO2 12.3 mmol/L (21.0-32.0); CREATININE 3.27 mg/dL (0.70-1.30); Calcium 7.9 mg/dL (8.5-10.1); Chloride 98 mmol/L (98-107); Estimated GFR 19.49 (mL/min/1.73m2); Glucose 406 mg/dL (70-100); Potassium 5.6 mmol/L (3.5-5.1); Sodium 125 mmol/L (136-145)
[2018-06-09] MEDS: Hydrocortisone SOD SUC. 100 MG VIAL 50 MG IVP ×3 (05:26→18:52)
[2018-06-09] MEDS: Levothyroxine 75 MCG TAB 37.5 MCG PO (05:26)
[2018-06-09] MEDS: Normal Saline 1,000 ML 150 ML IV ×3 (05:28→18:54)
[2018-06-09 06:39] LABS: Abs Immature Grans 0.05 k/cumm (0.0-0.09); Absolute Basophil Count 0.01 k/cumm (0.0-0.2); Absolute Eosinophil Count 0.01 k/cumm (0.0-0.7); Absolute Lymphocyte Count 0.73 k/cumm (1.2-3.4); Absolute Monocyte Count 0.27 k/cumm (0.11-0.7); Absolute Neutrophil Count 6.61 k/cumm (1.2-6.7); Basophils % 0.1; Eosinophils % 0.1; HCT 35.5 % (40.0-50.0); HGB 11.9 g/dL (13.5-17.5); Immature Grans % 0.7; Lymphocytes % 9.5; Mean Corp. HGB Concentration 33.5 g/dL (32.0-36.0); Mean Corpuscular Hemoglobin 23.9 pg (27.0-33.0); Mean Corpuscular Volume 71.3 fL (80-95); Mean Platelet Volume 10.3 fL (8.0-11.0); Monocytes % 3.5; Neutrophils % 86.1; Platelet Count 384 x1000/uL (130-400); RBC 4.98 m/cumm (4.50-6.00); RBC Distribution Width 16.9 % (11.8-14.1); White Blood Cell Count 7.68 k/cumm (4.4-10.8)
[2018-06-09 07:04] LABS: Anion Gap 15.6 mmol/L (3-11); BUN 67 mg/dL (7-18); CO2 12.4 mmol/L (21.0-32.0); CREATININE 3.22 mg/dL (0.70-1.30); Calcium 8.1 mg/dL (8.5-10.1); Chloride 98 mmol/L (98-107); Estimated GFR 19.84 (mL/min/1.73m2); Glucose 414 mg/dL (70-100); Magnesium 1.8 mg/dL (1.8-2.4); Potassium 5.4 mmol/L (3.5-5.1); Sodium 126 mmol/L (136-145); Vancomycin, Trough 15.2 ug/mL (10.0-20.0)
--- NOTE | 2018-06-09 07:47 | PDOC.CMIN ---
Care Management Initial Assess REASON FOR HOSPITALIZATION:: Afib with RVR, JESUS, UTI PAST MEDICAL HISTORY/PAST SURGICAL HISTORY:: CHF, Anemia, Anxiety, Back Pain, Bipolar Disorder, CAD, Cardiopulmonary arrest with successful resuscitation, cholelithiasis, anxiety, insomnia, chronic pain, CKD, Crohn's Disease, DM type 2 with diabetic neuropathy, diabetic foot ulcer, dyslipidemia, heme positive stool, hemorrhagic cystitis, hypertension, hypoandrogenism, hypothyroidism, impaired mobility and ADLs, Obesity, Pedal edema, Osteoarthritis of both knees, poor self care, poorly controlled DM2 with circulatory disorder, RA, TKA, Fracture ORIF R distal humerus fracture. 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 Brendan has a sister, Lian Hardy (P#[phone]) who lives in [facility] and though they have limited contact via phone every couple of weeks-she is his only identified family support. Brendan enjoys reading and watching TV. CURRENT FUNCTIONAL STATUS:: Brendan is lying in bed, well known to this board writer he appears at his baseline. ADVANCE DIRECTIVES:: [facility] on file Has patient been provided with information about the portal?: Yes Did the patient sign up for the portal?: No CODE STATUS:: Full Code INSURANCE COVERAGE / FINANCIAL ISSUES:: Medicaid. Medicare CURRENT HOME/COMMUNITY SERVICES/EQUIPMENT:: Brendan is a resident at the [facility]-the facility manages his service and equipment needs. PRIMARY CARE PHYSICIAN:: Anne Horowitz DO: Stitch Burnisher at the [facility] POTENTIAL DISCHARGE NEEDS:: Coordinated return to [facility]. CM spoke with Isela of the [facility] who requested updates when available. PATIENT/FAMILY EDUCATION NEEDS:: Review of instructions. ANTICIPATED BARRIERS TO DISCHARGE:: None identified. TRANSPORTATION:: W/C van-vs-EMS dependent on mobility PLAN:: Brendan will continue to be closely monitored and evaluated for further needs. He will eventually return to the [facility] when ready per MD. CM will continue to follow and support discharge planning considerations.
--- NOTE | 2018-06-09 07:56 | INITIAL_ITS ---
Care Management Initial Assess REASON FOR HOSPITALIZATION:: Afib with RVR, JESUS, UTI PAST MEDICAL HISTORY/PAST SURGICAL HISTORY:: CHF, Anemia, Anxiety, Back Pain, Bipolar Disorder, CAD, Cardiopulmonary arrest with successful resuscitation, cholelithiasis, anxiety, insomnia, chronic pain, CKD, Crohn's Disease, DM type 2 with diabetic neuropathy, diabetic foot ulcer, dyslipidemia, heme positive stool, hemorrhagic cystitis, hypertension, hypoandrogenism, hypothyroidism, impaired mobility and ADLs, Obesity, Pedal edema, Osteoarthritis of both knees, poor self care, poorly controlled DM2 with circulatory disorder, RA, TKA, Fracture ORIF R distal humerus fracture. 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 Brendan has a sister, Lian Hardy (P#[phone]) who lives in [facility] and though they have limited contact via phone every couple of weeks-she is his only identified family support. Brendan enjoys reading and watching TV. CURRENT FUNCTIONAL STATUS:: Brendan is lying in bed, well known to this inspector automatic typewriter he appears at his baseline. ADVANCE DIRECTIVES:: COLST on file Has patient been provided with information about the portal?: Yes Did the patient sign up for the portal?: No CODE STATUS:: Full Code INSURANCE COVERAGE / FINANCIAL ISSUES:: Medicaid. Medicare CURRENT HOME/COMMUNITY SERVICES/EQUIPMENT:: Brendan is a resident at the [facility]-the facility manages his service and equipment needs. PRIMARY CARE PHYSICIAN:: Anne Horowitz DO: Inspection And Testing Supervisor at the [facility] POTENTIAL DISCHARGE NEEDS:: Coordinated return to [facility]. CM spoke with Isela of the [facility] who requested updates when available. PATIENT/FAMILY EDUCATION NEEDS:: Review of instructions. ANTICIPATED BARRIERS TO DISCHARGE:: None identified. TRANSPORTATION:: W/C van-vs-EMS dependent on mobility PLAN:: Brendan will continue to be closely monitored and evaluated for further needs. He will eventually return to the [facility] when ready per MD. CM will continue to follow and support discharge planning considerations.
--- NOTE | 2018-06-09 08:59 | DI.US_ITS ---
SYMPTOM/DIAGNOSIS: JESUS ON CKD, UTI, EVALUATE FOR PYELONEPHR, STONES PORTABLE RENAL ULTRASOUND: The left kidney measures 10.3 x 4.8 x 5.9 cm. There is no evidence of nephrolithiasis or hydronephrosis. The right kidney measures 10.4 x 5.3 x 5.8 cm. The bladder is incompletely distended and could not be adequately evaluated. The ureteral jets were not seen. SUMMARY: No evidence of nephrolithiasis or hydronephrosis. The pre-void bladder contains 12 cc and could not be adequately evaluated.
[2018-06-09] MEDS: Omeprazole 20 MG CAPCR PO (09:09)
[2018-06-09] MEDS: Terazosin 2 MG CAP 4 MG PO ×2 (09:09→20:40)
[2018-06-09] MEDS: Magnesium Chloride 64 MG TABCR PO ×2 (09:09→22:22)
[2018-06-09] MEDS: Hydrocortisone 10 MG TAB PO ×2 (09:10→20:39)
[2018-06-09] MEDS: cloNIDine 0.1 MG TAB 0.3 MG PO ×3 (09:10→20:38)
[2018-06-09] MEDS: Venlafaxine 37.5 MG CAPCR 75 MG PO (09:10)
[2018-06-09] MEDS: Sodium Bicarbonate 650 MG TAB PO ×3 (09:10→20:40)
[2018-06-09] MEDS: Multivitamin w/Minerals TAB 1 TAB PO (09:10)
[2018-06-09] MEDS: Ferrous Sulfate 325 MG TAB PO ×2 (09:11→20:38)
[2018-06-09] MEDS: carBAMazepine 100 MG CHEW PO ×2 (09:11→14:17)
[2018-06-09] MEDS: Metoprolol CR 25 MG TABCR PO (09:11)
[2018-06-09] MEDS: Folic Acid 1 MG TAB PO (09:11)
[2018-06-09] MEDS: Cyanocobalamin 500 MCG TAB 1000 MCG PO (09:11)
[2018-06-09] MEDS: hydrALAZINE 10 MG TAB PO ×3 (09:11→20:38)
[2018-06-09] MEDS: Aspirin E.C. 81 MG TABEC PO ×2 (09:11→20:38)
[2018-06-09] MEDS: Lactobacillus Acidophilus CAP 1 CAP PO ×3 (09:11→20:38)
[2018-06-09] MEDS: Ascorbic Acid 500 MG TAB 250 MG PO ×2 (09:12→20:39)
[2018-06-09] MEDS: Insulin Glargine 300 UNITS/3 ML PEN 30 UNITS SC (09:13)
[2018-06-09] MEDS: Insulin Aspart 300 UNITS/3 ML PEN SC ×3 (09:14→17:01)
[2018-06-09] MEDS: dilTIAZem 125 MG in Normal Saline 100 ML 7.5 MG IV (09:57)
[2018-06-09 11:43] LABS: HCO3 (Venous) 12 mmol/L (22-28); O2 Sat (Venous) 98 % (70-80); TCO2 (Venous) 11 mmol/L (22-29); pCO2 (Venous) 29 mm/Hg (34-47); pH (Venous) 7.21 (7.32-7.43); pO2 (Venous) 108 mm/Hg (28-44)
--- NOTE | 2018-06-09 11:47 | PT.INIE ---
Date of service: 06/09/18 Time of Service: 09:55 PT Notes Inpatient Physical Therapy Evaluation Date: 06/09/18 Referring Doctor: Ariel Bravo MD PT Orders: PT CONSULT: Eval/treat Precautions: Fall. Standard. Patient Profile/Admitting Diagnosis: This is 58-year-old male patient who was sent to the ED with chief complaints of abdominal pain for the past 3 days and single episode of acute emesis. Patient was diagnosed with atrial flutter, UTI with sepsis, acute kidney injury in setting of chronic kidney disease, hyponatremia, lactic acidosis, and dehydration. He is on the tail and body course for management of MRSA bacteremia. Orders received today for functional mobility training, gait and balance training, and patient education/training. 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) Palliative care encounter (Acute) Pulmonary hypertension (Chronic) Toxic metabolic encephalopathy (Resolved) Advance directive on file (Chronic) Chronic cholecystitis (Chronic) 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 2 diabetes mellitus (Ruled-out) HCAP (healthcare-associated pneumonia) (Resolved) MRSA bacteremia (Acute) Ambulatory dysfunction (Chronic) Diabetic foot ulcer (Chronic) Poorly controlled type 2 diabetes mellitus with circulatory disorder (Chronic) Adrenal insufficiency (Chronic) CKD (chronic kidney disease) (Chronic) Cardiopulmonary arrest with successful resuscitation (Resolved) Heme positive stool (Chronic) Sepsis (Resolved) Pedal edema (Chronic) Chronic insomnia (Chronic) Hypertension (Chronic) Chronic pain (Chronic) Hypothyroidism (Chronic) Obesity (Chronic) Back pain (Chronic 06/21/13) Inability to get out of bed (Chronic 06/21/13) Poor self care (Chronic 06/21/13) Chronic bipolar disorder (Chronic) CAD (coronary artery disease) (Chronic) Dyslipidemia (Chronic) Rheumatoid arthritis (Chronic) Osteoarthritis of both knees (Chronic) Cholelithiasis (Chronic) Impaired mobility and ADLs (Chronic) Hemorrhagic cystitis (Inactive) Anemia (Chronic) Chronic anxiety (Chronic) Ulcerative colitis (Chronic) Surgical History History of insertion of T-tube into biliary tract (Chronic) S/P colectomy (Chronic) Arthroplasty of knee (Resolved 03/18/12) Fracture, Open Treatment (Resolved) Social History/Home Situation: Social History/Home Situation: Patient is a resident of [facility]. Patient states that upon discharge from this hospital, physical therapy worked with him and hasbarbie davenport walking about 50 feet on level surfaces with front-wheeled walker. He states that about 3 weeks ago when PT stopped working with him, he has not had anybody who helped continue his ambulation activity. He reports that his knees started hurting as well as his pain pill medication dosage was reduced. Current Functional Limitations: Patient requires assistance with all mobility ADL performance Equipment Owned/DME: Wheelchair, front-wheeled walker Subjective: Patient reports that he is nauseous and did not want to do anything out of bed. he is agreeable to doing PT consult and declined standing up and walking activity. Per nurse, patient was just put on Dilitiazem and may need not do any intensive therapy at this time. Objective: General Observation: Patient seen lying in ICU bed with HOB elevated , emesis basin in front of him as he is feeling nauseous. he states he has not had any episode of vomitting since he came yesterday. He reports that his abdominal pain is starting to act up as this PT came in. Diabetic ulcer on R foot. Mental Status: Alert and oriented x 3 Pain: Patient reports abdominal discomfort but no pin on bilatera toes where diabetic ulcers are. Vital Signs: 115/61 mmHg, 100% at 2 L of oxygen, 18 cpm, 63 bpm. ROM: Right Upper Extremity: Shoulder flexion about 50 degrees. Elbow motion is limited to 100 degrees flexion, lacking at least 20 degrees of terminal extension. Poor functional opening of the hand. Left Upper Extremity: Shoulder flexion about 60 degrees. Elbow motion is within functional limits. Poor functional opening of the hand. Right Lower Extremity: Patient has approximately 10 degree knee flexion contracture. Demonstrates ankle dorsiflexion to 5 degrees beyond neutral. Left Lower Extremity: Patient has approximately 15 degree knee flexion contracture. Demonstrates ankle dorsiflexion to 5 degrees beyond neutral. STRENGTH: Right Upper Extremity: Shoulder flexion 2-/5. Biceps 2-/5. Triceps 3+/5. Hand Mica Plate Layer is weak. Left Upper Extremity: Shoulder flexion 3-/5. Biceps 3-/5. Triceps 3+/5. Hand Mica Plate Layer is weak. Right Lower Extremity: Hip flexion 3-/5. Quads 3-/5. Hamstrings 3-/5. Ankle dorsiflexors 2-/5. Left Lower Extremity: Hip flexion 3-/5. Quads 3-/5. Hamstrings 3-/5. Ankle dorsiflexiors 2-/5. Bed Mobility/Transfers: NT. Patient refused any out of bed activities today due to nausea and fatigue. Balance: NT. Patient refused any out of bed activities today due to nausea and fatigue. Special Tests: Mobility Limitations Standardized Measure [facility] AM-PAC 6 clicks Basic Mobility Inpatient Short Form: Raw Score: 12 CMS Score: 67% deficit Informed Consent/Education: Patient instructed in purpose of PT consult and plan of care. Assessment: Patient is a 58 year old male referred to physical therapy services with the diagnosis of urinary tract infection, atrial flutter, UTI with sepsis, acute kidney injury in setting of chronic kidney disease, hyponatremia, lactic acidosis, and dehydration. Patient presents with clinical signs and symptoms consistent with reduced mobility related to acute medical issues. Patient does have chronic mobility deficits, and resides in a long-term care facility, where he requires assistance with all ambulation and self-care. PT goals will be targeted at maximizing patient's mobility and strength to allow for safe transition back to long-term care facility. He currently demonstrates the following impairment level findings: 1. Decreased lower extremity strength 2. Decreased upper extremity strength 3. Decreased activity tolerance 4. Decreased range of motion bilateral knees and hands 5. Decreased balance skills Impairments are contributing to the following functional limitations: 1. Unable to perform ambulation 2. Patient requiring assistance with bed mobility 3. Decreased activity tolerance 4. Decreased safety with transfers 5. Dependence with transfer task performance Patient is assessed as Moderate 41022 complexity based on the following: History: Reduced mobility due to weakness, balance issues related to UTI recurrence and 57-year-old male with complicated medical history and gradual decline in independence and mobility. Patient has been residing in a long-term care facility for the past 5 years, and demonstrates limited mobility in that setting. He also struggles with multiple areas of joint pain related to RA as well as with history of significant cardiac and GI issues as noted above under past medical history. Examination: Functional limitations and underlying impairments resulting to an AMP?PAC score 12 and an equivalent CMS score of 67% Presentation: Unstable Decision Making: Moderate complexity Goals: Goals X1 week 1. Supine-Sit independent 2. Sit-Supine independent 3. Sit-Stand independent 4. Stand-Sit independent 5. Bed-Chair independent 6. Chair-Bed independent 7. Independent gait on level surface with use of least restrictive device for at least 100 feet without report of pain nor dyspnea 8. Good static and dynamic standing balance/tolerance Plan of Care/Treatment Plan: 1-2x/day, 7 days/week x 1 week. Plan of care has been reviewed with the EMAIL ENGINEER providing the service under Physical Therapy direction. Initiate Physical Therapy intervention for strengthening, bed mobility, transfers, gait, balance training, use of assistive device. DISCHARGE RECOMMENDATIONS: Return to the [facility] when medically stable. Will highly benefit from continued skilled PT services at the SNF to establish a functional program and reduce fall risk. TREATMENT CODE/TIME: 89308 29 minutes beginning at 9:55 AM. Thank you for this referral. Jean Gamez, PT, DPT, CLT [facility]
--- NOTE | 2018-06-09 11:50 | IN_ITS ---
Date of service: 06/09/18 Time of Service: 09:55 PT Notes Inpatient Physical Therapy Evaluation Date: 06/09/18 Referring Doctor: Ariel Bravo MD PT Orders: PT CONSULT: Eval/treat Precautions: Fall. Standard. Patient Profile/Admitting Diagnosis: This is 58-year-old male patient who was sent to the ED with chief complaints of abdominal pain for the past 3 days and single episode of acute emesis. Patient was diagnosed with atrial flutter, UTI with sepsis, acute kidney injury in setting of chronic kidney disease, hyponatremia, lactic acidosis, and dehydration. He is on the tail and body course for management of MRSA bacteremia. Orders received today for functional mobility training, gait and balance training, and patient education/training. 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) Palliative care encounter (Acute) Pulmonary hypertension (Chronic) Toxic metabolic encephalopathy (Resolved) Advance directive on file (Chronic) Chronic cholecystitis (Chronic) 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 2 diabetes mellitus (Ruled-out) HCAP (healthcare-associated pneumonia) (Resolved) MRSA bacteremia (Acute) Ambulatory dysfunction (Chronic) Diabetic foot ulcer (Chronic) Poorly controlled type 2 diabetes mellitus with circulatory disorder (Chronic) Adrenal insufficiency (Chronic) CKD (chronic kidney disease) (Chronic) Cardiopulmonary arrest with successful resuscitation (Resolved) Heme positive stool (Chronic) Sepsis (Resolved) Pedal edema (Chronic) Chronic insomnia (Chronic) Hypertension (Chronic) Chronic pain (Chronic) Hypothyroidism (Chronic) Obesity (Chronic) Back pain (Chronic 06/21/13) Inability to get out of bed (Chronic 06/21/13) Poor self care (Chronic 06/21/13) Chronic bipolar disorder (Chronic) CAD (coronary artery disease) (Chronic) Dyslipidemia (Chronic) Rheumatoid arthritis (Chronic) Osteoarthritis of both knees (Chronic) Cholelithiasis (Chronic) Impaired mobility and ADLs (Chronic) Hemorrhagic cystitis (Inactive) Anemia (Chronic) Chronic anxiety (Chronic) Ulcerative colitis (Chronic) Surgical History History of insertion of T-tube into biliary tract (Chronic) S/P colectomy (Chronic) Arthroplasty of knee (Resolved 03/18/12) Fracture, Open Treatment (Resolved) Social History/Home Situation: Social History/Home Situation: Patient is a resident of [facility]. Patient states that upon discharge from this hospital, physical therapy worked with him and hasbarbie davenport walking about 50 feet on level surfaces with front-wheeled walker. He states that about 3 weeks ago when PT stopped working with him, he has not had anybody who helped continue his ambulation activity. He reports that his knees started hurting as well as his pain pill medication dosage was reduced. Current Functional Limitations: Patient requires assistance with all mobility ADL performance Equipment Owned/DME: Wheelchair, front-wheeled walker Subjective: Patient reports that he is nauseous and did not want to do anything out of bed. he is agreeable to doing PT consult and declined standing up and walking activity. Per nurse, patient was just put on Dilitiazem and may need not do any intensive therapy at this time. Objective: General Observation: Patient seen lying in ICU bed with HOB elevated , emesis basin in front of him as he is feeling nauseous. he states he has not had any episode of vomitting since he came yesterday. He reports that his abdominal pain is starting to act up as this PT came in. Diabetic ulcer on R foot. Mental Status: Alert and oriented x 3 Pain: Patient reports abdominal discomfort but no pin on bilatera toes where diabetic ulcers are. Vital Signs: 115/61 mmHg, 100% at 2 L of oxygen, 18 cpm, 63 bpm. ROM: Right Upper Extremity: Shoulder flexion about 50 degrees. Elbow motion is limited to 100 degrees flexion, lacking at least 20 degrees of terminal extension. Poor functional opening of the hand. Left Upper Extremity: Shoulder flexion about 60 degrees. Elbow motion is within functional limits. Poor functional opening of the hand. Right Lower Extremity: Patient has approximately 10 degree knee flexion contracture. Demonstrates ankle dorsiflexion to 5 degrees beyond neutral. Left Lower Extremity: Patient has approximately 15 degree knee flexion contracture. Demonstrates ankle dorsiflexion to 5 degrees beyond neutral. STRENGTH: Right Upper Extremity: Shoulder flexion 2-/5. Biceps 2-/5. Triceps 3+/5. Weight Checker is weak. Left Upper Extremity: Shoulder flexion 3-/5. Biceps 3-/5. Triceps 3+/5. Weight Checker is weak. Right Lower Extremity: Hip flexion 3-/5. Quads 3-/5. Hamstrings 3-/5. Ankle dorsiflexors 2-/5. Left Lower Extremity: Hip flexion 3-/5. Quads 3-/5. Hamstrings 3-/5. Ankle dorsiflexiors 2-/5. Bed Mobility/Transfers: NT. Patient refused any out of bed activities today due to nausea and fatigue. Balance: NT. Patient refused any out of bed activities today due to nausea and fatigue. Special Tests: Mobility Limitations Standardized Measure [facility] AM-PAC 6 clicks Basic Mobility Inpatient Short Form: Raw Score: 12 CMS Score: 67% deficit Informed Consent/Education: Patient instructed in purpose of PT consult and plan of care. Assessment: Patient is a 58 year old male referred to physical therapy services with the diagnosis of urinary tract infection, atrial flutter, UTI with sepsis, acute kidney injury in setting of chronic kidney disease, hyponatremia, lactic acidosis, and dehydration. Patient presents with clinical signs and symptoms consistent with reduced mobility related to acute medical issues. Patient does have chronic mobility deficits, and resides in a long-term care facility, where he requires assistance with all ambulation and self-care. PT goals will be targeted at maximizing patient's mobility and strength to allow for safe tra nsition back to long-term care facility. He currently demonstrates the following impairment level findings: 1. Decreased lower extremity strength 2. Decreased upper extremity strength 3. Decreased activity tolerance 4. Decreased range of motion bilateral knees and hands 5. Decreased balance skills Impairments are contributing to the following functional limitations: 1. Unable to perform ambulation 2. Patient requiring assistance with bed mobility 3. Decreased activity tolerance 4. Decreased safety with transfers 5. Dependence with transfer task performance Patient is assessed as Moderate 62852 complexity based on the following: History: Reduced mobility due to weakness, balance issues related to UTI recurrence and 57-year-old male with complicated medical history and gradual decline in independence and mobility. Patient has been residing in a long-term care facility for the past 5 years, and demonstrates limited mobility in that setting. He also struggles with multiple areas of joint pain related to RA as well as with history of significant cardiac and GI issues as noted above under past medical history. Examination: Functional limitations and underlying impairments resulting to an AMP?PAC score 12 and an equivalent CMS score of 67% Presentation: Unstable Decision Making: Moderate complexity Goals: Goals X1 week 1. Supine-Sit independent 2. Sit-Supine independent 3. Sit-Stand independent 4. Stand-Sit independent 5. Bed-Chair independent 6. Chair-Bed independent 7. Independent gait on level surface with use of least restrictive device for at least 100 feet without report of pain nor dyspnea 8. Good static and dynamic standing balance/tolerance Plan of Care/Treatment Plan: 1-2x/day, 7 days/week x 1 week. Plan of care has been reviewed with the PIANO MAKER providing the service under Physical Therapy direction. Initiate Physical Therapy intervention for strengthening, bed mobility, transfers, gait, balance training, use of assistive device. DISCHARGE RECOMMENDATIONS: Return to the [facility] when medically stable. Will highly benefit from continued skilled PT services at the SNF to establish a functional program and reduce fall risk. TREATMENT CODE/TIME: [id number] 29 minutes beginning at 9:55 AM. Thank you for this referral. Jean Gamez, PT, DPT, CLT [facility]
[2018-06-09] MEDS: Insulin NPH-Human 300 UNITS/3 ML PEN 16 UNIT SC ×2 (14:18→22:22)
[2018-06-09] MEDS: Normal Saline Flush 10 ML SYR (14:18)
[2018-06-09 14:25] LABS: Anion Gap 10.6 mmol/L (3-11); BUN 66 mg/dL (7-18); CO2 14.4 mmol/L (21.0-32.0); CREATININE 3.11 mg/dL (0.70-1.30); Chloride 102 mmol/L (98-107); Estimated GFR 20.65 (mL/min/1.73m2); Glucose 442 mg/dL (70-100); Sodium 127 mmol/L (136-145)
--- NOTE | 2018-06-09 16:10 | CHAPLAIN ---
Brendan was pleasant and quickly began a conversation when I visited. He said his heart is being monitored for a flutter, and it the first time that has happened. He spent 8 hours in the ER yesterday before being admitted, and then didn't get much sleep last night, he said. He gave me permission to let Maldonado Ford, from [facility], and Phlylis Colon from [facility], know that he is here. They have been long time supports for Brendan.
--- NOTE | 2018-06-09 16:40 | PGE_ITS ---
Date of Service Date of service: 06/09/18 Time of Service: 16:39 Assessment and Plan (1) Atrial flutter, paroxysmal: Current visit: Yes Status: Acute New diagnosis, likely precipitated by infection and dehydration. Minimal troponin leak likely demand in the setting of illness and poor clearance for worsening renal function. Continue BB, discontinue Cardizem gtt due to bradycardia, and ensure prn IV Cardizem if needed. Will initiate on AC as CHADSVASC2 score is adequately elevated - patient reports a history of GIB prior to his colectomy from Crohn's, none since. Will initiate Apixaban, and discontinue Carbamazepine. (2) Elevated troponin I level: Current visit: Yes Status: Acute Minimal and equivocal, in setting of acute illness, dehydration, Atrial Flutter with rapid rate, and poor clearance due to JESUS superimposed on CKD. Troponin already normalized. No evidence of NSTEMI. (3) UTI (urinary tract infection): Current visit: Yes Status: Acute Continue renally dosed Levofloxacin, day #1, and monitor blood cultures. Renal Ultrasound unremarkable. Consider discontinuation of Ruiz. Qualifiers: Urinary tract infection type: site unspecified Hematuria presence: without hematuria Qualified Code(s): N39.0 - Urinary tract infection, site not specified (4) 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: Current visit: Yes Status: Acute Qualifiers: Laterality: left Non-pressure ulcer stage: limited to breakdown of skin Qualified Code(s): E11.621 - Type 2 diabetes mellitus with foot ulcer; L97.521 - Non-pressure chronic ulcer of other part of left foot limited to breakdown of skin (5) Adrenal insufficiency: Current visit: No Status: Chronic Due to long-term steroid use. Was recently switched from prednisone to Hydrocort. Will ensure stress dose steroids, with slow taper down to home regimen. (2) 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 2 diabetes mellitus: Status: Ruled-out Non-healing diabetic foot ulcer, with Xray showing evidence of potential osteo of the right 5th metatarsal. S/p debridement on 03/06 with resection of the 5th MPJ - culture of the tissue grew MRSA and Proteus Mirabilis. Per discussion with podiatry Osteo was not confirmed by biopsy. Has received 2 weeks of broad spectrum antibiotics post debridement and resection. Consider further evaluation of the LEs as an outpatient to evaluate for likely PVD and poor perfusion in diabetic patient. Needs to follow-up in about 10 days with podiatry. (3) Chronic cholecystitis: Cholecystostomy drain was not changed at [facility] on 03/05/17 - per discussion with IR by the hospitalist, there would not have been a benefit to it from the stand point of decreasing infection risk, as long as the drain is functioning well and continues to drain, which it has. Recommend outpatient [facility] general surgery follow up for cholecystectomy if possible - however may ultimately be deemed a poor surgical candidate. (4) HCAP (healthcare-associated pneumonia): S/p 5 days of therapy with Vancomycin and Pip-Tazo initially. Unsure if this was a true diagnosis as repeat read of CXR and repeat imaging failed to show evidence of an infiltrate. However imaging while hospitalized on 03/14 showed likely infiltrates while patient remained on broad spectrum antibiotics, with repeat CXR showing improvement. No pulmonary symptoms at time of discharge (6) Hyperkalemia: Resolved. Plan as above. (7) DVT prophylaxis: Mr. Corley was maintained on SC Heparin. (8) Chronic Pruritis Unsure of etiology for this, but he was maintained on hypoallergenic bedding here along with topical Eucerin Cream and prn hydroxyzine with some effect. Recommend continuation of this regimen as an outpatient. (8) Advance directive on file: Full Code (6) Chronic cholecystitis: Current visit: No Status: Chronic Drain appears to be functioning well and continues to drain, and exam is benign. Has been deemed a poor surgical candidate. (7) Acute on chronic kidney failure: Current visit: Yes Status: Acute Appears to be prerenal in etiology, and creatinine responding to IVF resuscitation. Patient no longer on ARYA-I. Has lengthy history of significant hyperkalemia, and with K+ that is increasing currently. Continue IVFs, renal low potassium diet, renally dose medications, avoid nephrotoxins, and monitor renal function residential. Qualifiers: Acute renal failure type: unspecified Chronic kidney disease stage: stage 4 (severe) Qualified Code(s): N17.9 - Acute kidney failure, unspecified; N18.4 - Chronic kidney disease, stage 4 (severe) (8) Hyperkalemia: Current visit: No Status: Resolved Initiate Kayexalate, and repeat K+ later this evening. Would consider dose of IV Furosemide if unchanged or worsened value, but hold off for now as attempting to hydrate patient. Ensure renal, low potassium diet. (9) MRSA bacteremia: Current visit: No Status: Acute Vancomycin completed. Repeat Blood Culture obtained. Negative prior work- up as previously stated, including CT chest, abdomen, and pelvis, Tagged WBC Scan, TTE, CT of the right elbow, and debridement with bone cultures of the lower digits. Consider KELLEE if recurrence. Consider repeat blood cultures over the next week as well. (10) Poorly controlled type 2 diabetes mellitus with circulatory disorder: Current visit: No Status: Chronic Continue lantus, ISS. (11) Diabetic foot ulcer: Current visit: No Status: Chronic Podiatry consult in place. Prior history of debridement while hospitalized. (12) DVT prophylaxis: Current visit: Yes Status: Acute Active anticoagulation initaited as above. (13) Advance directive on file: Current visit: Yes Status: Acute Full Code. Subjective Interval history since last seen: 57 year old resident of the [facility], with a recent history of recurrent MRSA bacteremia on IV vancomycin, admitted from [facility] on 06/08 with a diagnosis of UTI, JESUS, and new Atrial Flutter. Mr. Corley has been hospitalized here at [facility] with sepsis on numerous prior occasions. He has a history of Group C strep and MRSA bacteremia, as well as E. Fecalis UTI in the past. He suffered a cardiopulmonary arrest necessitating a transfer to [facility]. He was treated for Choleycystitis, and as he is not a surgical candidate, was treated conservatively with a pigtail catheter that remains in place. He is chronically a resident at the [facility]. His other medical history includes DM, Adrenal insufficiency secondary to chronic steroid use, RA, Crohn's disease s/p Colectomy, OA, CKD with prior JESUS and resultant hyperkalemia, HTN, CAD, hypothyroidism, Obesity, and chronic pain. He's had recurrent UTIs, and also has a history of a non-healing diabetic foot ulcer for which he has undergone debridement in the past with excision of toe, without evidence of Osteo. He also suffers from frequent hyperkalemia. During his last hospitalization in April he was treated for MRSA bacteremia again, with a negative work-up that included TTE, CT of the chest, abdomen, and pelvis, CT of the elbow, and Tagged WBC Scan. KELLEE was not procured as the patient is a poor candidate for this procedure, but was recommended if recurrence of bacteremia. He is currently concluding therapy with Vancomycin. Mr. Corley presented to the ED for evaluation of generalized abdominal pain with an episode of emesis. He reports a 2-3 week history of decreased oral intake and weight loss - work-up was significant for JESUS, Anion Gap Acidosis, Hyponatremia,and UTI by urinalysis. CT of the a/p showed no acute pathology, CXR was without infiltrate, and subsequent renal ultrasound unremarkable. He was also noted to be in Atrial Flutter, which is a new diagnosis for him. He was referred for admission. This morning the patient reports improved but continued symptoms. No overnight events reported. He remains afebrile. Exam Narrative Exam Narrative: General: Patient appears comfortable, chronically ill appearing, obese, AAOX3, NAD Neck: Supple CV: Regular, nontachycardic, S1S2 Pulmonary: Clear to auscultation bilaterally, no crackles, wheezing, or rhonchi Abdomen: + Bowel Sounds, soft, nontender, nondistended, obese in contour. Ileostomy and cholecystostomy drains noted. Vascular: B/l lower extremity edema and chronic hyperpigmentation Psych: Normal mood and affect. Objective Objective Clinical Data: Abnormal lab results 06/08/18 06/08/18 06/09/18 Range/Units 19:55 19:55 00:58 Hgb (13.5-17.5) g/dL Hct (40.0-50.0) % MCV (80-95) fL MCH (27.0-33.0) pg RDW (11.8-14.1) % Absolute Lymphocytes (1.2-3.4) k/cumm VBG pH (7.32-7.43) VBG pCO2 (34-47) mm/Hg VBG pO2 (28-44) mm/Hg VBG HCO3 (22-28) mmol/L VBG Total CO2 (22-29) mmol/L VBG O2 Saturation (70-80) % Sodium 125 L 125 L (136-145) mmol/L Potassium 5.6 H (3.5-5.1) mmol/L Chloride 96 L (98-107) mmol/L Carbon Dioxide 13.1 L 12.3 L (21.0-32.0) mmol/L Anion Gap 15.9 H 14.7 H (3-11) mmol/L BUN 75 H 69 H (7-18) mg/dL Creatinine 3.69 H* 3.27 H (0.70-1.30) mg/dL Glucose 330 H 406 H (70-100) mg/dL Lactate 1.6 H (0.6-1.4) mmol/l Calcium 7.9 L (8.5-10.1) mg/dL 06/09/18 06/09/18 06/09/18 Range/Units 06:15 06:15 11:38 Hgb 11.9 L D (13.5-17.5) g/dL Hct 35.5 L (40.0-50.0) % MCV 71.3 L (80-95) fL MCH 23.9 L (27.0-33.0) pg RDW 16.9 H (11.8-14.1) % Absolute Lymphocytes 0.73 L (1.2-3.4) k/cumm VBG pH 7.21 L (7.32-7.43) VBG pCO2 29 L (34-47) mm/Hg VBG pO2 108 H (28-44) mm/Hg VBG HCO3 12 L (22-28) mmol/L VBG Total CO2 11 L (22-29) mmol/L VBG O2 Saturation 98 H (70-80) % Sodium 126 L (136-145) mmol/L Potassium 5.4 H (3.5-5.1) mmol/L Chloride (98-107) mmol/L Carbon Dioxide 12.4 L (21.0-32.0) mmol/L Anion Gap 15.6 H (3-11) mmol/L BUN 67 H (7-18) mg/dL Creatinine 3.22 H (0.70-1.30) mg/dL Glucose 414 H (70-100) mg/dL Lactate (0.6-1.4) mmol/l Calcium 8.1 L (8.5-10.1) mg/dL 06/09/18 Range/Units 14:06 Hgb (13.5-17.5) g/dL Hct (40.0-50.0) % MCV (80-95) fL MCH (27.0-33.0) pg RDW (11.8-14.1) % Absolute Lymphocytes (1.2-3.4) k/cumm VBG pH (7.32-7.43) VBG pCO2 (34-47) mm/Hg VBG pO2 (28-44) mm/Hg VBG HCO3 (22-28) mmol/L VBG Total CO2 (22-29) mmol/L VBG O2 Saturation (70-80) % Sodium 127 L (136-145) mmol/L Potassium 6.0 H* (3.5-5.1) mmol/L Chloride (98-107) mmol/L Carbon Dioxide 14.4 L (21.0-32.0) mmol/L Anion Gap (3-11) mmol/L BUN 66 H (7-18) mg/dL Creatinine 3.11 H (0.70-1.30) mg/dL Glucose 442 H (70-100) mg/dL Lactate (0.6-1.4) mmol/l Calcium 8.0 L (8.5-10.1) mg/dL Vital Signs Temperature 36.9 C 06/09/18 13:31 Temperature Source Tympanic 06/09/18 13:31 Pulse 53 L 06/09/18 15:00 Pulse 54 L 06/09/18 15:01 Respiratory Rate 27 H 06/09/18 15:01 Respiratory Effort 06/09/18 13:31 Respiratory Depth Normal 06/09/18 00:17 Respiratory Pattern Normal 06/09/18 00:17 Blood Pressure 130/59 L 06/09/18 15:00 Blood Pressure Mean 73 06/09/18 15:00 Blood Pressure Position Supine 06/09/18 13:31 Pulse Oximetry 98 06/09/18 15:01 Oxygen Delivery Method Room Air 06/09/18 13:31 Oxygen Flow Rate 0 06/09/18 13:31 Pain Level 4 06/09/18 13:31 Comment 06/08/18 12:59 Intake & Output 06/08/18 06/09/18 06/09/18 23:59 11:59 23:59 Intake Total 1547.833 / 3882.805 3325.875 / 3725.833 2157.958 / 3725.833 Output Total 200 / 200 1200 / 2100 900 / 2100 Balance 1347.833 / 1347.833 367.875 / 3751.182 5391.958 / 1625.833 Weight 96 kg 96.4 kg Intake: IV 1547.833 / 8877.945 5137.875 / 2425.833 957.958 / 2425.833 Oral 100 / 1300 1200 / 1300 Output: Drainage 400 / 400 Gallbladder drain 400 / 400 Urine 800 / 1450 650 / 1450 Stool 200 / 200 250 / 250 Other: Urine Color Straw Straw Urine Appearance Cloudy Cloudy Cloudy Comment Urinary ruiz placed Urinary ruiz placed Urinary ruiz placed Stool Characteristics Liquid Laboratory Results WBC 7.68 k/cumm (4.4-10.8) D 06/09/18 06:15 RBC 4.98 m/cumm (4.50-6.00) 06/09/18 06:15 Hgb 11.9 g/dL (13.5-17.5) L D 06/09/18 06:15 Hct 35.5 % (40.0-50.0) L 06/09/18 06:15 MCV 71.3 fL (80-95) L 06/09/18 06:15 MCH 23.9 pg (27.0-33.0) L 06/09/18 06:15 MCHC 33.5 g/dL (32.0-36.0) 06/09/18 06:15 RDW 16.9 % (11.8-14.1) H 06/09/18 06:15 Plt Count 384 x1000/uL (130-400) 06/09/18 06:15 MPV 10.3 fL (8.0-11.0) 06/09/18 06:15 Immature Gran % 0.7 06/09/18 06:15 Neutrophils % 86.1 06/09/18 06:15 Lymphocytes % 9.5 06/09/18 06:15 Monocytes % 3.5 06/09/18 06:15 Eosinophils % 0.1 06/09/18 06:15 Basophils % 0.1 06/09/18 06:15 Absolute Neutrophils 6.61 k/cumm (1.2-6.7) 06/09/18 06:15 Absolute Lymphocytes 0.73 k/cumm (1.2-3.4) L 06/09/18 06:15 Absolute Monocytes 0.27 k/cumm (0.11-0.7) 06/09/18 06:15 Absolute Eosinophils 0.01 k/cumm (0.0-0.7) 06/09/18 06:15 Absolute Basophils 0.01 k/cumm (0.0-0.2) 06/09/18 06:15 Nucleated RBCs 1 /100WBC 06/08/18 10:00 Differential Comment Manual differential 06/08/18 10:00 RBC Morphology See below 06/08/18 10:00 Polychromasia Present 06/08/18 10:00 Hypochromasia 2+ 06/08/18 10:00 Poikilocytosis 3+ 06/08/18 10:00 Basophilic Stippling Present 06/08/18 10:00 Anisocytosis 2+ 06/08/18 10:00 Microcytosis 2+ 06/08/18 10:00 VBG pH 7.21 (7.32-7.43) L 06/09/18 11:38 VBG pCO2 29 mm/Hg (34-47) L 06/09/18 11:38 VBG pO2 108 mm/Hg (28-44) H 06/09/18 11:38 VBG HCO3 12 mmol/L (22-28) L 06/09/18 11:38 VBG Total CO2 11 mmol/L (22-29) L 06/09/18 11:38 VBG O2 Saturation 98 % (70-80) H 06/09/18 11:38 VBG Base Excess mmol/L (-3-3) 06/09/18 11:38 Sodium 127 mmol/L (136-145) L 06/09/18 14:06 Potassium 6.0 mmol/L (3.5-5.1) H* 06/09/18 14:06 Chloride 102 mmol/L (98-107) 06/09/18 14:06 Carbon Dioxide 14.4 mmol/L (21.0-32.0) L 06/09/18 14:06 Anion Gap 10.6 mmol/L (3-11) 06/09/18 14:06 BUN 66 mg/dL (7-18) H 06/09/18 14:06 Creatinine 3.11 mg/dL (0.70-1.30) H 06/09/18 14:06 Estimated GFR/1.73 m2 20.65 (mL/min/1.73m2) 06/09/18 14:06 Glucose 442 mg/dL (70-100) H 06/09/18 14:06 Lactate 1.1 mmol/l (0.6-1.4) 06/09/18 00:58 Calcium 8.0 mg/dL (8.5-10.1) L 06/09/18 14:06 Magnesium 1.8 mg/dL (1.8-2.4) 06/09/18 06:15 Total Bilirubin 0.3 mg/dL (0.2-1.0) 06/08/18 10:00 AST 12 U/L (15-37) L 06/08/18 10:00 ALT 15 U/L (12-78) 06/08/18 10:00 Alkaline Phosphatase 310 U/L (46-116) H 06/08/18 10:00 Troponin I 0.05 ng/mL (0.00-0.06) 06/08/18 19:55 Total Protein 7.6 g/dL (6.4-8.2) 06/08/18 10:00 Albumin 2.9 g/dL (3.4-5.0) L 06/08/18 10:00 Lipase 130 U/L (73-393) 06/08/18 10:00 Urine Color Yellow (Yellow) 06/08/18 13:30 Urine Clarity Cloudy 06/08/18 13:30 Urine pH 5.5 (5-8) 06/08/18 13:30 Ur Specific [place] 1.020 (1.005-1.025) 06/08/18 13:30 Urine Protein 100 mg/dL (Negative) H 06/08/18 13:30 Urine Ketones Negative mg/dL (Negative) 06/08/18 13:30 Urine Blood Small (Negative) H 06/08/18 13:30 Urine Nitrite Negative (Negative) 06/08/18 13:30 Urine Bilirubin Negative (Negative) 06/08/18 13:30 Urine Urobilinogen 0.2 EU/dL (Up TO 0.2) 06/08/18 13:30 Ur Leukocyte Esterase Moderate (Negative) H 06/08/18 13:30 Urine RBC Not Applicable 06/08/18 13:30 Urine WBC >50 HPF (0-5) 06/08/18 13:30 Ur Epithelial Cells Not Applicable 06/08/18 13:30 Urine Crystals Not Applicable 06/08/18 13:30 Urine Bacteria Not Applicable 06/08/18 13:30 Urine Mucus Not Applicable 06/08/18 13:30 Ur Culture Indicated? Yes 06/08/18 13:30 Urine Glucose Negative mg/dL (Negative) 06/08/18 13:30 Vancomycin Trough 15.2 ug/mL (10.0-20.0) 06/09/18 06:15
[2018-06-09] MEDS: Apixaban 5 MG TAB PO (20:40)
[2018-06-10] VITALS (53 sets, daily range): BP systolic 116–159; BP diastolic 54–101; PULSE 62–145; RESP 14–31; TEMP 35.5–37.4; O2SAT 84–100
[2018-06-10] MEDS: risperiDONE 1 MG TAB 3 MG PO ×2 (00:09→21:46)
[2018-06-10] MEDS: traZODone 50 MG TAB PO ×2 (00:09→21:46)
[2018-06-10] MEDS: Hydrocortisone SOD SUC. 100 MG VIAL 50 MG IVP ×5 (00:09→23:14)
[2018-06-10] MEDS: Normal Saline Flush 10 ML SYR ×2 (00:09→06:35)
[2018-06-10] MEDS: Normal Saline 1,000 ML 150 ML IV ×2 (01:27→08:30)
[2018-06-10] MEDS: Levothyroxine 75 MCG TAB 37.5 MCG PO (05:55)
[2018-06-10] MEDS: Insulin NPH-Human 300 UNITS/3 ML PEN 16 UNIT SC ×3 (06:03→21:47)
[2018-06-10 07:18] LABS: HCT 32.9 % (40.0-50.0); HGB 10.8 g/dL (13.5-17.5); Mean Corp. HGB Concentration 32.8 g/dL (32.0-36.0); Mean Corpuscular Hemoglobin 23.5 pg (27.0-33.0); Mean Corpuscular Volume 71.7 fL (80-95); Mean Platelet Volume 9.8 fL (8.0-11.0); Platelet Count 342 x1000/uL (130-400); RBC 4.59 m/cumm (4.50-6.00); White Blood Cell Count 4.71 k/cumm (4.4-10.8)
[2018-06-10 07:23] LABS: Anion Gap 12.2 mmol/L (3-11); BUN 59 mg/dL (7-18); CO2 13.8 mmol/L (21.0-32.0); CREATININE 2.31 mg/dL (0.70-1.30); Calcium 8.4 mg/dL (8.5-10.1); Chloride 107 mmol/L (98-107); Glucose 300 mg/dL (70-100); Magnesium 1.9 mg/dL (1.8-2.4); Potassium 5.3 mmol/L (3.5-5.1); Sodium 133 mmol/L (136-145)
[2018-06-10 08:02] LABS: Absolute Lymphocyte Count 0.66 k/cumm (1.2-3.4); Absolute Neutrophil Count 3.96 k/cumm (1.2-6.7)
[2018-06-10 08:03] LABS: Absolute Monocyte Count 0.09 k/cumm (0.11-0.7); Anisocytosis 2+; Diff Comment Manual Differential; Other Cells 0; Promyelocytes % 0 %
[2018-06-10 08:04] LABS: Hypochromasia 1+; Microcytosis 2+; Polychromasia Present
[2018-06-10 08:05] LABS: Poikilocytes 2+
--- NOTE | 2018-06-10 08:06 | PDOC.CMPRO ---
Care Management Progress Note S/O: Brendan was on the side of the bed, readying to transfer to the [facility] with nursing. He remains pleasant in interaction and is well known to [facility]. CM faxed updated clinicals to the [facility][1] and will continue to follow. A: 58 year old male admitted to [facility] P: Brendan will continue to be closely monitored and evaluated for further needs. He will eventually return to the [facility][1] when ready per MD. CM will continue to follow and support discharge planning considerations.
--- NOTE | 2018-06-10 08:28 | CMPROGNOTE_ITS ---
Care Management Progress Note S/O: Brendan was on the side of the bed, [facility]. He remains pleasant in interaction and is well known to [facility]. CM faxed updated clinicals to the [facility] and will continue to follow. A: 58 year old male admitted to [facility] P: Brendan will continue to be closely monitored and evaluated for further needs. He will eventually return to the [facility] when ready per MD. CM will continue to follow and support discharge planning considerations.
[2018-06-10] MEDS: Terazosin 2 MG CAP 4 MG PO ×2 (09:37→20:00)
[2018-06-10] MEDS: Lactobacillus Acidophilus CAP 1 CAP PO ×3 (09:38→20:01)
[2018-06-10] MEDS: Folic Acid 1 MG TAB PO (09:39)
[2018-06-10] MEDS: Multivitamin w/Minerals TAB 1 TAB PO (09:39)
[2018-06-10] MEDS: cloNIDine 0.1 MG TAB 0.3 MG PO ×3 (09:39→20:03)
[2018-06-10] MEDS: Omeprazole 20 MG CAPCR PO (09:39)
[2018-06-10] MEDS: Venlafaxine 37.5 MG CAPCR 75 MG PO (09:39)
[2018-06-10] MEDS: hydrALAZINE 10 MG TAB PO ×3 (09:40→20:01)
[2018-06-10] MEDS: Sodium Bicarbonate 650 MG TAB PO ×3 (09:40→20:00)
[2018-06-10] MEDS: Ferrous Sulfate 325 MG TAB PO ×2 (09:40→20:00)
[2018-06-10] MEDS: Apixaban 5 MG TAB PO ×2 (09:40→20:01)
[2018-06-10] MEDS: Cyanocobalamin 500 MCG TAB 1000 MCG PO (09:40)
[2018-06-10] MEDS: Aspirin E.C. 81 MG TABEC PO ×2 (09:40→20:00)
[2018-06-10] MEDS: Metoprolol 25 MG TAB PO ×3 (09:40→23:13)
[2018-06-10] MEDS: Ascorbic Acid 500 MG TAB 250 MG PO ×2 (09:40→20:00)
[2018-06-10] MEDS: Hydrocortisone 10 MG TAB PO ×2 (09:40→20:01)
[2018-06-10] MEDS: Insulin Aspart 300 UNITS/3 ML PEN SC ×3 (09:47→17:18)
[2018-06-10] MEDS: Insulin Glargine 300 UNITS/3 ML PEN 60 UNITS SC (09:48)
[2018-06-10] MEDS: Magnesium Chloride 64 MG TABCR PO ×2 (10:15→21:46)
[2018-06-10] MEDS: dilTIAZem 25 MG/5 ML VIAL 10 MG IVP (10:55)
--- NOTE | 2018-06-10 11:39 | PHARADMIT ---
Addendum entered by Isaura Cifuentes 06/18/18 12:01: Pharmacy Note Subjective t tube stopped draining, Md to consult with [facility] Objective vs ok, wt down (seems to vary quite a bit), vanco trough 20.9 Assessment Zosyn ,Vancomycin and fluconazole continue, vanco trough evaluated and dose and frequency to remain the same Plan Plan is for patient transfer to SNF and continue to receive IV Vancomycin & PO Augmentin. Watch H&H,SCr, Vancomycin troughs Addendum entered by Guido Medina III 06/17/18 12:38: Pharmacy Note Subjective MD to transfer to Med/Surg floor. MD will dc the Beta-lia (low HR). does not believe patients foot has Osteomyelitis. Objective VS-OK HR-50 K+3.6 Mag-1.7 SCr-2.34 H&H-10.7/33.1 Wgt-96.9kg BM today Assessment Clonidine reduced to 0.2mg PO TID,Diflucan, Zosyn & Vancomycin continue. On Apixaban. Plan Plan is for patient transfer to SNF and continue to receive IV Vancomycin & PO Augmentin. Watch H&H,SCr, Vancomycin troughs Addendum entered by Guido Medina III 06/12/18 14:51: Levaquin & KXL8 dc'd... Diflucan 20mg tabs PO BID started. MD aware of renal dosing. Spoke with [facility], their recommendation. Addendum entered by Guido Medina III 06/12/18 12:34: Pharmacy Note Subjective MD fears potential Osteo of toes of feet.No Podiatry available until Friday. Urine culturee shows only yeast. Currently receiving Levaquin 750mg IV q48H (poor renal function) Objective VS-OK K+4.4 Mag-1.9 SCr-2.42 WBC,H&H,Plts-OK No new wgt, BM today. Assessment KXL8 for high K+, On Lasix PO I&O (-1620mL today). Apixaban continues. Plan Here over the weekend fr IV ABX and awaiting Podiatry consult on Friday. Original Note: Admission Pharmacy Clinical Review AFIB WITH RVR,JESUS,UTI Code Status Full Code Current Weight 99.6 kg Renally Cleared and Narrow Therapeutic Index Meds CRCL ~38ML/MIN QTc Value / Action Taken 399 BP Control, Fever 127/92 AFEBRILE Electrolytes reviewed K 5.3, MAG 1.9, NA 133 DVT Prophylaxis APIXABAN Opiate Usage / Scheduled Bowel Regimen Ordered PRN /NO, LIQUID STOOL ON 06/08 Plt/SCr for Heparin / Enoxaparin 342/2.31 INR for Warfarin NA H/H stable, WBC/Bands 10.8/32.9 WBC 4.71 Antibiotic appropriateness LEVOFLOXACIN IV, Cultures and Sensitivities BC PRELIM NO GROWTH, UC 10-50,000, Surgical ABX d/c within 24 hr NA DM control / Insulin Dosing FS 282, INSULIN GLARGINE, HUMULIN N AND ASPART Heart Failure (Check EF%) (ARYA's, B-Block, Diuretics) IV to PO Switch Home Meds Reviewed Home Meds Not Ordered carbamazepine 100 mg PO TID 12/23/17 [History Confirmed 06/08/18] amlodipine 10 mg PO DAILY #0 tab 12/31/17 [Rx Confirmed 06/08/18] ergocalciferol (vitamin D2) [Vitamin D2] See Rx Instruct prednisone 50 mg PO DAILY on hydrocortisone IV now Hydrocortef 10 mg PO BID 06/08/18 [History] furosemide 40 mg PO DAILY 06/08/18 [History Confirmed 06/08/18] vancomycin 500 mg IV .[id number] 06/08/18 [History Confirmed 06/08/18] Comments Adrenal insufficiency Pt is on chronic steroids
--- NOTE | 2018-06-10 11:46 | PGE_ITS ---
Date of Service Date of service: 06/10/18 Time of Service: 11:45 Assessment and Plan (1) Atrial flutter, paroxysmal: Current visit: Yes Status: Acute New diagnosis, likely precipitated by infection and dehydration. Minimal troponin leak likely demand in the setting of illness and poor clearance for worsening renal function. ECHO last checked 05/05, with normal LVEF, and no significant valvulopathy. Continue BB but increase dose and change to tartrate formulation. Discontinued Cardizem gtt due to bradycardia, but with prn IV Cardizem if needed. Initiated on AC as CHADSVASC2 score is adequately elevated - patient reports a history of GIB prior to his colectomy from Crohn's, none since. Will initiate Apixaban, and discontinue Carbamazepine. Monitor H/H. (2) Elevated troponin I level: Current visit: Yes Status: Acute Minimal and equivocal, in setting of acute illness, dehydration, Atrial Flutter with rapid rate, and poor clearance due to JESUS superimposed on CKD. Troponin already normalized. No evidence of NSTEMI. (3) UTI (urinary tract infection): Current visit: Yes Status: Acute Continue renally dosed Levofloxacin, day #2, and monitor blood cultures. Renal Ultrasound unremarkable. Consider discontinuation of Ruiz. Qualifiers: Hematuria presence: without hematuria Urinary tract infection type: site unspecified Qualified Code(s): N39.0 - Urinary tract infection, site not specified (4) 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: Current visit: Yes Status: Acute Podiatry unavailable. Wound care consulted. Qualifiers: Laterality: left Non-pressure ulcer stage: limited to breakdown of skin Qualified Code(s): E11.621 - Type 2 diabetes mellitus with foot ulcer; L97.521 - Non-pressure chronic ulcer of other part of left foot limited to breakdown of skin (5) Adrenal insufficiency: Current visit: No Status: Chronic Due to long-term steroid use. Was recently switched from prednisone to Hydrocort. Will ensure stress dose steroids, with slow taper down to home regimen. (6) Chronic cholecystitis: Current visit: No Status: Chronic Drain appears to be functioning well and continues to drain, and exam is benign. Has been deemed a poor surgical candidate. (7) Acute on chronic kidney failure: Current visit: Yes Status: Acute Appears to be prerenal in etiology, with creatinine responding to IVF resuscitation. Patient no longer on ARYA-I. Has lengthy history of significant hyperkalemia, and with K+ that had increased. Continue IVFs, renal low potassium diet, renally dose medications, avoid nephrotoxins, and monitor renal function jail. Hyperkalemia improved with Kayexalate. Qualifiers: Acute renal failure type: unspecified Chronic kidney disease stage: stage 4 (severe) Qualified Code(s): N17.9 - Acute kidney failure, unspecified; N18.4 - Chronic kidney disease, stage 4 (severe) (8) Hyperkalemia: Current visit: No Status: Resolved Continue Kayexalate. K+ improved this morning. Home dose of lasix on hold as attempting to hydrate patient. Ensure renal, low potassium diet. (9) MRSA bacteremia: Current visit: No Status: Acute Vancomycin completed. Repeat Blood Culture obtained. Negative prior work- up as previously stated, including CT chest, abdomen, and pelvis, Tagged WBC Scan, TTE, CT of the right elbow, and debridement with bone cultures of the lower digits. Consider KELLEE if recurrence. Consider repeat blood cultures over the next week as well. (10) Poorly controlled type 2 diabetes mellitus with circulatory disorder: Current visit: No Status: Chronic Continue lantus, ISS. Monitor BS. (11) Diabetic foot ulcer: Current visit: No Status: Chronic Podiatry consult unavailable currently. Prior history of debridement while hospitalized. Wound care consult in place. (12) DVT prophylaxis: Current visit: Yes Status: Acute Active anticoagulation initaited as above. (13) Advance directive on file: Current visit: Yes Status: Acute Full Code. Subjective Interval history since last seen: 57 year old resident of the [facility], with a recent history of recurrent MRSA bacteremia on IV vancomycin, admitted from [facility] Emergency Department on 06/08 with a diagnosis of UTI, JESUS, and new Atrial Flutter. Mr. Corley has been hospitalized here at [facility] with sepsis on numerous prior occasions. He has a history of Group C strep and MRSA bacteremia, as well as E. Fecalis UTI in the past. He suffered a cardiopulmonary arrest necessitating a transfer to [facility]. He was treated for Choleycystitis, and as he is not a surgical candidate, was treated conservatively with a pigtail catheter that remains in place. He is chronically a resident at the [facility]. His other medical history includes DM, Adrenal insufficiency secondary to chronic steroid use, RA, Crohn's disease s/p Colectomy, OA, CKD with prior JESUS and resultant hyperkalemia, HTN, CAD, hypothyroidism, Obesity, and chronic pain. He's had recurrent UTIs, and also has a history of a non-healing diabetic foot ulcer for which he has undergone debridement in the past with excision of toe, without evidence of Osteo. He also suffers from frequent hyperkalemia. During his last hospitalization in April he was treated for MRSA bacteremia again, with a negative work-up that included TTE, CT of the chest, abdomen, and pelvis, CT of the elbow, and Tagged WBC Scan. KELLEE was not procured as the patient is a poor candidate for this procedure, but was recommended if recurrence of bacteremia. He is currently concluding therapy with Vancomycin. Mr. Corley presented to the ED from the [facility] for evaluation of generalized abdominal pain with an episode of emesis. He reported a 2-3 week history of decreased oral intake and weight loss - work-up was significant for JESUS, Anion Gap Acidosis, Hyponatremia,and UTI by urinalysis. CT of the a/p showed no acute pathology, CXR was without infiltrate, and subsequent renal ultrasound unremarkable. He was also noted to be in Atrial Flutter, which is a new diagnosis for him. He was referred for admission. This morning the patient reports improved symptoms. He did not tolerate a Cardizem drip yesterday, with HR response in the 50's and as low as in the 30's. He is currently tachycardic and remains in atrial Flutter. His troponin has downtrended. No overnight events reported. He remains afebrile. Exam Narrative Exam Narrative: General: Patient appears comfortable, sitting up in bed and eating breakfast, chronically ill appearing, obese, AAOX3, NAD Neck: Supple CV: Regular, nontachycardic, S1S2 Pulmonary: Clear to auscultation bilaterally, no crackles, wheezing, or rhonchi Abdomen: + Bowel Sounds, soft, nontender, nondistended, obese in contour. Ileostomy and cholecystostomy drains noted. Vascular: B/l lower extremity edema and chronic hyperpigmentation Psych: Normal mood and affect. Objective Objective Clinical Data: Abnormal lab results 06/09/18 06/09/18 06/09/18 Range/Units 11:38 14:06 20:00 Hgb (13.5-17.5) g/dL Hct (40.0-50.0) % MCV (80-95) fL MCH (27.0-33.0) pg RDW (11.8-14.1) % Absolute Lymphocytes (1.2-3.4) k/cumm Absolute Monocytes (0.11-0.7) k/cumm VBG pH 7.21 L (7.32-7.43) VBG pCO2 29 L (34-47) mm/Hg VBG pO2 108 H (28-44) mm/Hg VBG HCO3 12 L (22-28) mmol/L VBG Total CO2 11 L (22-29) mmol/L VBG O2 Saturation 98 H (70-80) % Sodium 127 L (136-145) mmol/L Potassium 6.0 H* 6.0 H* (3.5-5.1) mmol/L Carbon Dioxide 14.4 L (21.0-32.0) mmol/L Anion Gap (3-11) mmol/L BUN 66 H (7-18) mg/dL Creatinine 3.11 H (0.70-1.30) mg/dL Glucose 442 H (70-100) mg/dL Calcium 8.0 L (8.5-10.1) mg/dL 06/10/18 06/10/18 Range/Units 06:30 06:30 Hgb 10.8 L (13.5-17.5) g/dL Hct 32.9 L (40.0-50.0) % MCV 71.7 L (80-95) fL MCH 23.5 L (27.0-33.0) pg RDW 17.0 H (11.8-14.1) % Absolute Lymphocytes 0.66 L (1.2-3.4) k/cumm Absolute Monocytes 0.09 L (0.11-0.7) k/cumm VBG pH (7.32-7.43) VBG pCO2 (34-47) mm/Hg VBG pO2 (28-44) mm/Hg VBG HCO3 (22-28) mmol/L VBG Total CO2 (22-29) mmol/L VBG O2 Saturation (70-80) % Sodium 133 L (136-145) mmol/L Potassium 5.3 H (3.5-5.1) mmol/L Carbon Dioxide 13.8 L (21.0-32.0) mmol/L Anion Gap 12.2 H (3-11) mmol/L BUN 59 H (7-18) mg/dL Creatinine 2.31 H D (0.70-1.30) mg/dL Glucose 300 H D (70-100) mg/dL Calcium 8.4 L (8.5-10.1) mg/dL Vital Signs Temperature 37.4 C 06/10/18 00:32 Temperature Source Temporal Artery Scan 06/10/18 00:32 Pulse 142 H 06/10/18 10:55 Pulse 78 06/10/18 06:01 Respiratory Rate 19 06/10/18 06:01 Respiratory Effort 06/10/18 04:10 Respiratory Depth Normal 06/10/18 04:10 Respiratory Pattern Tachypnea 06/10/18 04:10 Blood Pressure 127/92 H 06/10/18 10:55 Blood Pressure Mean 83 06/10/18 06:01 Blood Pressure Position Supine 06/09/18 20:45 Pulse Oximetry 99 06/10/18 06:01 Oxygen Delivery Method Room Air 06/10/18 00:32 Oxygen Flow Rate 0 06/10/18 00:32 Pain Level 0 06/10/18 04:10 Comment 06/08/18 12:59 Intake & Output 06/09/18 06/09/18 06/10/18 11:59 23:59 11:59 Intake Total 1567.875 / 5365.833 3797.958 / 5365.833 2172.5 / 2172.5 Output Total 1200 / 3100 1900 / 3100 1250 / 1250 Balance 367.875 / 2265.833 1897.958 / 2265.833 922.5 / 922.5 Weight 96.4 kg 99.6 kg Intake: IV 1467.875 / 3165.833 1697.958 / 3165.833 1732.5 / 1732.5 Oral 100 / 2200 2100 / 2200 440 / 440 Output: Drainage 400 / 500 100 / 500 100 / 100 Gallbladder drain 400 / 500 100 / 500 100 / 100 Urine 800 / 1950 1150 / 1950 1000 / 1000 Stool 650 / 650 150 / 150 Other: Urine Color Straw Yellow Yellow Urine Appearance Cloudy Cloudy Cloudy Comment Urinary ruiz placed Urinary ruiz patent and draining cloudy yellow urine positive for leukocytes and proteine. Ruiz draining cloudy urine. Laboratory Results WBC 4.71 k/cumm (4.4-10.8) D 06/10/18 06:30 RBC 4.59 m/cumm (4.50-6.00) 06/10/18 06:30 Hgb 10.8 g/dL (13.5-17.5) L 06/10/18 06:30 Hct 32.9 % (40.0-50.0) L 06/10/18 06:30 MCV 71.7 fL (80-95) L 06/10/18 06:30 MCH 23.5 pg (27.0-33.0) L 06/10/18 06:30 MCHC 32.8 g/dL (32.0-36.0) 06/10/18 06:30 RDW 17.0 % (11.8-14.1) H 06/10/18 06:30 Plt Count 342 x1000/uL (130-400) 06/10/18 06:30 MPV 9.8 fL (8.0-11.0) 06/10/18 06:30 Immature Gran % See Differential 06/10/18 06:30 Neutrophils % 84.0 06/10/18 06:30 Lymphocytes % 14.0 06/10/18 06:30 Monocytes % 2.0 06/10/18 06:30 Eosinophils % 0.0 06/10/18 06:30 Basophils % 0.0 06/10/18 06:30 Metamyelocytes % 0.0 % 06/10/18 06:30 Myelocytes % 0.0 % 06/10/18 06:30 Promyelocytes % 0 % 06/10/18 06:30 Absolute Neutrophils 3.96 k/cumm (1.2-6.7) 06/10/18 06:30 Absolute Lymphocytes 0.66 k/cumm (1.2-3.4) L 06/10/18 06:30 Absolute Monocytes 0.09 k/cumm (0.11-0.7) L 06/10/18 06:30 Absolute Eosinophils 0.00 k/cumm (0.0-0.7) 06/10/18 06:30 Absolute Basophils 0.00 k/cumm (0.0-0.2) 06/10/18 06:30 Nucleated RBCs 1 /100WBC 06/08/18 10:00 Differential Comment Manual differential 06/10/18 06:30 Other Cell Type 0 06/10/18 06:30 RBC Morphology See below 06/10/18 06:30 Polychromasia Present 06/10/18 06:30 Hypochromasia 1+ 06/10/18 06:30 Poikilocytosis 2+ 06/10/18 06:30 Basophilic Stippling Present 06/08/18 10:00 Anisocytosis 2+ 06/10/18 06:30 Microcytosis 2+ 06/10/18 06:30 VBG pH 7.21 (7.32-7.43) L 06/09/18 11:38 VBG pCO2 29 mm/Hg (34-47) L 06/09/18 11:38 VBG pO2 108 mm/Hg (28-44) H 06/09/18 11:38 VBG HCO3 12 mmol/L (22-28) L 06/09/18 11:38 VBG Total CO2 11 mmol/L (22-29) L 06/09/18 11:38 VBG O2 Saturation 98 % (70-80) H 06/09/18 11:38 VBG Base Excess mmol/L (-3-3) 06/09/18 11:38 Sodium 133 mmol/L (136-145) L 06/10/18 06:30 Potassium 5.3 mmol/L (3.5-5.1) H 06/10/18 06:30 Chloride 107 mmol/L (98-107) 06/10/18 06:30 Carbon Dioxide 13.8 mmol/L (21.0-32.0) L 06/10/18 06:30 Anion Gap 12.2 mmol/L (3-11) H 06/10/18 06:30 BUN 59 mg/dL (7-18) H 06/10/18 06:30 Creatinine 2.31 mg/dL (0.70-1.30) H D 06/10/18 06:30 Estimated GFR/1.73 m2 29.10 (mL/min/1.73m2) 06/10/18 06:30 Glucose 300 mg/dL (70-100) H D 06/10/18 06:30 Lactate 1.1 mmol/l (0.6-1.4) 06/09/18 00:58 Calcium 8.4 mg/dL (8.5-10.1) L 06/10/18 06:30 Magnesium 1.9 mg/dL (1.8-2.4) 06/10/18 06:30 Total Bilirubin 0.3 mg/dL (0.2-1.0) 06/08/18 10:00 AST 12 U/L (15-37) L 06/08/18 10:00 ALT 15 U/L (12-78) 06/08/18 10:00 Alkaline Phosphatase 310 U/L (46-116) H 06/08/18 10:00 Troponin I 0.05 ng/mL (0.00-0.06) 06/08/18 19:55 Total Protein 7.6 g/dL (6.4-8.2) 06/08/18 10:00 Albumin 2.9 g/dL (3.4-5.0) L 06/08/18 10:00 Lipase 130 U/L (73-393) 06/08/18 10:00 Urine Color Yellow (Yellow) 06/08/18 13:30 Urine Clarity Cloudy 06/08/18 13:30 Urine pH 5.5 (5-8) 06/08/18 13:30 Ur Specific [place] 1.020 (1.005-1.025) 06/08/18 13:30 Urine Protein 100 mg/dL (Negative) H 06/08/18 13:30 Urine Ketones Negative mg/dL (Negative) 06/08/18 13:30 Urine Blood Small (Negative) H 06/08/18 13:30 Urine Nitrite Negative (Negative) 06/08/18 13:30 Urine Bilirubin Negative (Negative) 06/08/18 13:30 Urine Urobilinogen 0.2 EU/dL (Up TO 0.2) 06/08/18 13:30 Ur Leukocyte Esterase Moderate (Negative) H 06/08/18 13:30 Urine RBC Not Applicable 06/08/18 13:30 Urine WBC >50 HPF (0-5) 06/08/18 13:30 Ur Epithelial Cells Not Applicable 06/08/18 13:30 Urine Crystals Not Applicable 06/08/18 13:30 Urine Bacteria Not Applicable 06/08/18 13:30 Urine Mucus Not Applicable 06/08/18 13:30 Ur Culture Indicated? Yes 06/08/18 13:30 Urine Glucose Negative mg/dL (Negative) 06/08/18 13:30 Vancomycin Trough 15.2 ug/mL (10.0-20.0) 06/09/18 06:15
--- NOTE | 2018-06-10 12:13 | PT.INTREAT ---
Date of service: 06/10/18 Time of Service: 12:14 PT Notes Inpatient Physical Therapy Treatment Note [facility] Date: 06/10/18 PRECAUTIONS: Fall SUBJECTIVE: Brendan states that he is feeling pretty good this morning, he is agreeable to participating in PT. OBJECTIVE: PAIN: No c/o pain. BED MOBILITY/TRANSFERS Supine-sit: Min A Sit-supine: I Sit-stand: S Stand-sit: S Bed-chair: SBA GAIT Assistive Device: No AD in a.m.; FWW in p.m. Weight bearing: Full Assist: SBA Distance: 4 side-steps to L in a.m.; 5' in p.m. THEREX: Held per nursing request due to elevated HR, ranging 128-144 bpm at rest, in a.m.; patient performed ankle pump and LAQ exercise in p.m. in a seated position, as per flow sheet. ASSESSMENT: Patient tolerated session well with some c/o increased fatigue. He was able to tolerate a progression in gait distance with FWW support. He would benefit from continued global strengthening and gait and transfer training for improved mobility and activity tolerance. PLAN: Continue with PT's POC TREATMENT CODE/TIME: Session 1: 20 minutes; [id number] Session 2: 20 minutes; [id number] x2
--- NOTE | 2018-06-10 15:46 | WOUNDCARE ---
Wound Care Report Pt is a 58 year old male seen for evaluation of suspected wounds on sacrum and left ischial tuberosity. Ordering physician also requesting evaluation of bilateral great toe wounds and treatment recommendations. Chart reviewed, including H&P, recent labs, vital signs, and other providers? reports. Pt has a very large and complex medical Hx. Sacral area looks very similar to presentation on previous admissions. Purpura in color, (see photos in chart) but blanchable. Sensitive to touch. Scattered open areas from Pt admittedly scratching at sacrum, buttocks, and upper thighs chronically. No odor noted. Circular partial thickness wound measuring 0.5x1x0.1 located on left ischial tuberosity, surrounding skin blanchable. Unknown etiology, however this particular wound does not have the same characteristics as noted scratches. No odor noted. Indicators of probable infection present on great right toe Erythema, edema, fever, warmth, discolorations, delayed healing, RIGHT Toe is edematous. Pt is neuropathic. Full thickness ulceration noted on medial dorsal aspect of the right great toe. Eschar/scab covering underlying tissue. No drainage noted. Full thickness ulceration noted on medial dorsal aspect of the LEFT great toe with similar characteristics, however LEFT great to does not appear as swollen as right. Patients Mobility status transfer with assist, spends a lot of time in bed. Nutritional Status- nutrition consult recommended Continence Management plan ruiz and colostomy Circulatory status known PVD, hemosiderin stains to bilat LE?s, palpable pulses, capillary refill less than 3 seconds, trace pedal edema Pain sacral flap is sensitive to touch. Pt reports no sensation in bilateral feet. Medications altering healing Corticosteroids Repositioning schedule for bed and chair Q2H Recommendations: Apply large sacral mepilex w/border to sacrum. Change Q3 days and PRN. Reposition Patient Q2H. Apply zinc based cream to partial thickness wound on left ischial tuberosity TID and PRN. As for the bilateral toe wounds recommended consulting podiatry, who is very familiar with Pt and his wound Hx, to rule out osteomyelitis and obtain appropriate debridement of said wounds. Information and wound consult recommendations communicated verbally to Dr. Bravo. Thank you for the consult.
--- NOTE | 2018-06-10 15:47 | CHAPLAIN ---
I had a visit with Brendan while he was eating lunch. He said he's feeling better. He thinks there is somewhere else he may go to before he returns to the [facility]. I wasn't clear where he was talking about. He also talked about living at the [facility] and said that after his hospitalization at [facility] in the fall, because he was gone for more than 30 days, he was moved to from the area to the area where people don't have all their minds. But he said for the most part, it okay being there. I will continue to visit Brendan.
[2018-06-10] MEDS: Normal Saline 1,000 ML 100 ML IV (16:34)
[2018-06-10] MEDS: levoFLOXacin 750 MG/150 ML BAG 100 MG IVPB (18:06)
[2018-06-11] VITALS (38 sets, daily range): BP systolic 125–171; BP diastolic 69–146; PULSE 53–154; RESP 16–31; TEMP 36.3–37.3; O2SAT 92–100
[2018-06-11] MEDS: Normal Saline 1,000 ML 100 ML IV (02:24)
[2018-06-11] MEDS: Insulin NPH-Human 300 UNITS/3 ML PEN 16 UNIT SC ×3 (06:08→23:19)
[2018-06-11] MEDS: Levothyroxine 75 MCG TAB 37.5 MCG PO (06:08)
[2018-06-11] MEDS: Hydrocortisone SOD SUC. 100 MG VIAL 50 MG IVP ×3 (06:08→19:25)
[2018-06-11 07:25] LABS: Abs Immature Grans 0.04 k/cumm (0.0-0.09); Absolute Basophil Count 0.01 k/cumm (0.0-0.2); Absolute Eosinophil Count 0.03 k/cumm (0.0-0.7); Absolute Lymphocyte Count 0.81 k/cumm (1.2-3.4); Absolute Monocyte Count 0.46 k/cumm (0.11-0.7); Absolute Neutrophil Count 4.84 k/cumm (1.2-6.7); Basophils % 0.2; Eosinophils % 0.5; HCT 33.1 % (40.0-50.0); HGB 10.7 g/dL (13.5-17.5); Immature Grans % 0.6; Lymphocytes % 13.1; Mean Corp. HGB Concentration 32.3 g/dL (32.0-36.0); Mean Corpuscular Hemoglobin 23.5 pg (27.0-33.0); Mean Corpuscular Volume 72.6 fL (80-95); Monocytes % 7.4; Neutrophils % 78.2; Platelet Count 342 x1000/uL (130-400); RBC 4.56 m/cumm (4.50-6.00); RBC Distribution Width 17.5 % (11.8-14.1); White Blood Cell Count 6.19 k/cumm (4.4-10.8)
[2018-06-11 07:29] LABS: Anion Gap 12.1 mmol/L (3-11); BUN 52 mg/dL (7-18); CO2 14.9 mmol/L (21.0-32.0); CREATININE 2.28 mg/dL (0.70-1.30); Calcium 8.6 mg/dL (8.5-10.1); Chloride 111 mmol/L (98-107); Estimated GFR 29.55 (mL/min/1.73m2); Glucose 234 mg/dL (70-100); Magnesium 1.7 mg/dL (1.8-2.4); Potassium 4.9 mmol/L (3.5-5.1); Sodium 138 mmol/L (136-145)
--- NOTE | 2018-06-11 07:31 | W.INDIABCONS ---
Date of service: 06/11/18 Time of Service: 07:32 Diabetes Inpatient Consult DESCRIPTION/ASSESSMENT: Appreciate diabetes consult for Mr. Corley who is hospitalized with UTI, foot infection and impaired kidney function. He is well known to outpatient DSME as well as recent inpatient visits. Blood sugars here 3-400s taking his usual basal insulin of 60u Lantus, resistant mealtime insulin correction and 16u NPH insulin q 8 hours to address steroid induced hyperglycemia from hydrocortisone at 50mg q 6 hours. He is eating 16-51grams carbohydrate at a meal. A1c has increased from 6.8 on 12/11 to 8.4 this month. His BMI is down to 29. Brendan's blood sugars remain elevated despite insulin to address steroids yet with an increase in A1c indicating a possible need to increase his usual insulins gradually. Brendan has been visited in the past and describes his diabetes care as being taken care of by his caregivers at the [facility]. INTERVENTION: Suggest increase in basal insulin by 10% to 66 units initially. He may also benefit from insulin:carbohydrate 1 unit covers 10 grams given his carbohydrate intake varies. PLAN: Will follow blood sugars Time Spent in Nutritional Counseling and Treatment: 0 minutes face to face
--- NOTE | 2018-06-11 07:56 | DM INPTCON_ITS ---
Date of service: 06/11/18 Time of Service: 07:32 Diabetes Inpatient Consult DESCRIPTION/ASSESSMENT: Appreciate diabetes consult for Mr. Corley who is hospitalized with UTI, foot infection and impaired kidney function. He is well known to outpatient DSME as well as recent inpatient visits. Blood sugars here 3-400s taking his usual basal insulin of 60u Lantus, resistant mealtime insulin correction and 16u NPH insulin q 8 hours to address steroid induced hyperglycemia from hydrocortisone at 50mg q 6 hours. He is eating 16- 51grams carbohydrate at a meal. A1c has increased from 6.8 on 12/11 to 8.4 this month. His BMI is down to 29. Brendan's blood sugars remain elevated despite insulin to address steroids yet with an increase in A1c indicating a possible need to increase his usual insulins gradually. Brendan has been visited in the past and describes his diabetes care as being taken care of by his caregivers at the [facility]. INTERVENTION: Suggest increase in basal insulin by 10% to 66 units initially. He may also benefit from insulin:carbohydrate 1 unit covers 10 grams given his carbohydrate intake varies. PLAN: Will follow blood sugars Time Spent in Nutritional Counseling and Treatment: 0 minutes face to face
--- NOTE | 2018-06-11 08:54 | PDOC.CMPRO ---
Care Management Progress Note S/O: Brendan remains ICU level of care and pleasant in interaction. CM spoke with Isela of Admissions and will continue to follow; anticipate Brendan will remain at [facility] through the weekend. A: 58 year old male admitted to [facility] P: Brendan will continue to be closely monitored and evaluated for further needs. He will eventually return to the [facility] when ready per MD. CM will continue to follow and support discharge planning considerations.
[2018-06-11 09:19] LABS: Iron 52 ug/dL (50-175); Total Iron Binding Capacity 217 ug/dL (250-450); Transferrin Sat 24 % (20-55)
[2018-06-11 09:48] LABS: Ferritin 140 ng/mL (8-388); TSH 0.26 uIU/mL (0.358-3.74); Vitamin B12 1315 pg/mL (193-986)
[2018-06-11] MEDS: dilTIAZem 25 MG/5 ML VIAL 10 MG IVP (09:53)
[2018-06-11 10:04] LABS: Folate > 20.0 ng/mL (8.6-20.0)
--- NOTE | 2018-06-11 10:09 | PT.INNT ---
Date of service: 06/11/18 Time of Service: 10:09 PT Notes 06/11/18 Hold morning PT session, per nsg, as patient is demonstrating elevated resting HR and BP. Will attempt to resume PT this afternoon, if appropriate.
[2018-06-11] MEDS: Ascorbic Acid 500 MG TAB 250 MG PO ×2 (10:16→19:27)
[2018-06-11] MEDS: Insulin Aspart 300 UNITS/3 ML PEN SC ×3 (10:17→17:36)
[2018-06-11] MEDS: Insulin Glargine 300 UNITS/3 ML PEN 60 UNITS SC (10:17)
[2018-06-11] MEDS: MAGNESIUM SULFATE 1 GM/100 ML BAG IVPB (10:18)
[2018-06-11] MEDS: Apixaban 5 MG TAB PO ×2 (10:24→19:27)
[2018-06-11] MEDS: amLODIPine 10 MG TAB PO (10:24)
[2018-06-11] MEDS: Magnesium Chloride 64 MG TABCR PO ×2 (10:24→23:16)
[2018-06-11] MEDS: Metoprolol 25 MG TAB PO (10:24)
[2018-06-11] MEDS: Folic Acid 1 MG TAB PO (10:24)
[2018-06-11] MEDS: Terazosin 2 MG CAP 4 MG PO ×2 (10:24→19:27)
[2018-06-11] MEDS: Venlafaxine 37.5 MG CAPCR 75 MG PO (10:25)
[2018-06-11] MEDS: Cyanocobalamin 500 MCG TAB 1000 MCG PO (10:25)
[2018-06-11] MEDS: Sodium Bicarbonate 650 MG TAB PO ×3 (10:26→19:27)
[2018-06-11] MEDS: Aspirin E.C. 81 MG TABEC PO (10:26)
[2018-06-11] MEDS: Lactobacillus Acidophilus CAP 1 CAP PO ×3 (10:26→19:27)
[2018-06-11] MEDS: Omeprazole 20 MG CAPCR PO (10:26)
[2018-06-11] MEDS: cloNIDine 0.1 MG TAB 0.3 MG PO ×3 (10:26→19:27)
[2018-06-11] MEDS: Hydrocortisone 10 MG TAB PO ×2 (10:27→19:27)
[2018-06-11] MEDS: hydrALAZINE 10 MG TAB PO ×3 (10:27→19:27)
[2018-06-11] MEDS: Ferrous Sulfate 325 MG TAB PO ×2 (10:27→19:26)
[2018-06-11] MEDS: Multivitamin w/Minerals TAB 1 TAB PO (10:27)
--- NOTE | 2018-06-11 13:09 | W.PM.PROGNOT ---
Date of Service Date of service: 06/11/18 Time of Service: 13:10 Assessment and Plan (1) Atrial flutter, paroxysmal: Current visit: Yes Status: Acute New diagnosis, likely precipitated by infection and dehydration. Minimal troponin leak likely demand in the setting of illness and poor clearance from worsening renal function. Quickly normalized ECHO last checked 05/05, with normal LVEF, and no significant valvulopathy. Continue BB but increase dose and change to tartrate formulation. Discontinued Cardizem gtt due to bradycardia, but with prn IV Cardizem if needed. Initiated on AC as CHADSVASC2 score is adequately elevated - patient reports a history of GIB prior to his colectomy from Crohn's, none since - however, with mild drop in Hgb, microcytic anemia, and Heme + stool. Will initiate Apixaban, and discontinue Carbamazepine, change to IV BID Protonix, and check iron studies. Monitor H/H. (2) Elevated troponin I level: Current visit: Yes Status: Acute Minimal and equivocal, in setting of acute illness, dehydration, Atrial Flutter with rapid rate, and poor clearance due to JESUS superimposed on CKD. Troponin already normalized. No evidence of NSTEMI. (3) UTI (urinary tract infection): Current visit: Yes Status: Acute Evidence of Pyuria with +LE, but Urine cultures negative except for yeast which is a likely colonization. Continue renally dosed Levofloxacin, day #3, and monitor cultures. Renal Ultrasound unremarkable. Ruiz discontinued. Consider potential diagnosis of prostatitis. Qualifiers: Hematuria presence: without hematuria Urinary tract infection type: site unspecified Qualified Code(s): N39.0 - Urinary tract infection, site not specified (4) 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: Current visit: Yes Status: Acute Podiatry unavailable. Wound care consulted with concern for osteo. Patient is refusing MRI - check CT. Qualifiers: Laterality: left Non-pressure ulcer stage: limited to breakdown of skin Qualified Code(s): E11.621 - Type 2 diabetes mellitus with foot ulcer; L97.521 - Non-pressure chronic ulcer of other part of left foot limited to breakdown of skin (5) Diabetic foot ulcer: Current visit: No Status: Chronic (6) Adrenal insufficiency: Current visit: No Status: Chronic Due to long-term steroid use. Was recently switched from prednisone to Hydrocort. Will ensure stress dose steroids, with slow taper down to home regimen. (7) Chronic cholecystitis: Current visit: No Status: Chronic Drain appears to be functioning well and continues to drain, and exam is benign. Has been deemed a poor surgical candidate. (8) Acute on chronic kidney failure: Current visit: Yes Status: Acute Appears to be prerenal in etiology, with creatinine responding to IVF resuscitation. Current creatinine back to baseline. Patient no longer on ARYA-I. Has lengthy history of significant hyperkalemia, and with K+ that had increased. 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 Hyperkalemia improved with Kayexalate and resolution of JESUS. Qualifiers: Acute renal failure type: unspecified Chronic kidney disease stage: stage 4 (severe) Qualified Code(s): N17.9 - Acute kidney failure, unspecified; N18.4 - Chronic kidney disease, stage 4 (severe) (9) Hyperkalemia: Current visit: No Status: Resolved Continue Kayexalate but decrease dose. K+ improved again this morning and now normalized. Ensure renal, low potassium diet. (10) MRSA bacteremia: Current visit: No Status: Acute Vancomycin completed. Repeat Blood Culture obtained. Negative prior work-up as previously stated, including CT chest, abdomen, and pelvis, Tagged WBC Scan, TTE, CT of the right elbow, and debridement with bone cultures of the lower digits. Consider KELLEE if recurrence. Consider repeat blood cultures over the next week as well. PICC line still in place. (11) Poorly controlled type 2 diabetes mellitus with circulatory disorder: Current visit: No Status: Chronic Continue lantus, ISS. Monitor BS. (12) Anemia: Current visit: No Status: Chronic Mildly worsened Hgb. Also with Microcytosis noted, and Heme + blood. Iron studies with low TIBC, but inappropriately normal Ferritin - potential for Anemia of Chronic Disease with superimposed blood loss. B12 and FA no deficient, but with low TSH as well. Change PPI to IV formulation and increase to BID dosing. Monitor carefully, and consider discontinuation of anticoagulation if continued drop in Hgb. (13) Hypothyroidism: Current visit: No Status: Chronic Low TSH - in setting of acute illness. However, patient with substantial weight loss over the course of the last 6 months. Decrease dose, with need for repeat TSH values in a few weeks. (14) DVT prophylaxis: Current visit: Yes Status: Acute Active anticoagulation initaited as above. (15) Advance directive on file: Current visit: Yes Status: Acute Full Code. Subjective Interval history since last seen: 57 year old resident of the [facility], with a recent history of recurrent MRSA bacteremia on IV vancomycin, admitted from [facility] Emergency Department on 06/08 with a diagnosis of UTI, JESUS, and new Atrial Flutter. Mr. Corley has been hospitalized here at [facility] with sepsis on numerous prior occasions. He has a history of Group C strep and MRSA bacteremia, as well as E. Fecalis UTI in the past. He suffered a cardiopulmonary arrest necessitating a transfer to [facility]. He was treated for Choleycystitis, and as he is not a surgical candidate, was treated conservatively with a pigtail catheter that remains in place. He is chronically a resident at the [facility]. His other medical history includes DM, Adrenal insufficiency secondary to chronic steroid use, RA, Crohn's disease s/p Colectomy, OA, CKD with prior JESUS and resultant hyperkalemia, HTN, CAD, hypothyroidism, Obesity, and chronic pain. He's had recurrent UTIs, and also has a history of a non-healing diabetic foot ulcer for which he has undergone debridement in the past with excision of toe, without evidence of Osteo. He also suffers from frequent hyperkalemia. During his last hospitalization in April he was treated for MRSA bacteremia again, with a negative work-up that included TTE, CT of the chest, abdomen, and pelvis, CT of the elbow, and Tagged WBC Scan. KELLEE was not procured as the patient is a poor candidate for this procedure, but was recommended if recurrence of bacteremia. He is currently concluding therapy with Vancomycin. Mr. Corley presented to the ED from the long-term for evaluation of generalized abdominal pain with an episode of emesis. He reported a 2-3 week history of decreased oral intake and weight loss - work-up was significant for JESUS, Anion Gap Acidosis, Hyponatremia,and UTI by urinalysis. CT of the a/p showed no acute pathology, CXR was without infiltrate, and subsequent renal ultrasound unremarkable. He was also noted to be in Atrial Flutter, which is a new diagnosis for him. His urinalysis showed evidence of infection. He was referred for admission. This morning the patient reports improved symptoms overall. He did not tolerate a Cardizem drip due to bradycardia, and is intermittently both tachy and bradycardic, but remains in Atrial Flutter. Despite his pyuria his Urine Culture only shows evidence of yeast. Wound Consult with concern for potential Osteo of the digits bilateral feet. No overnight events reported. He remains afebrile. Exam Narrative Exam Narrative: General: Patient appears comfortable, sitting up in bed and eating breakfast, chronically ill appearing, obese, AAOX3, NAD Neck: Supple CV: Regular, nontachycardic, S1S2 Pulmonary: Clear to auscultation bilaterally, no crackles, wheezing, or rhonchi Abdomen: + Bowel Sounds, soft, nontender, nondistended, obese in contour. Ileostomy and cholecystostomy drains noted. Vascular: B/l lower extremity edema and chronic hyperpigmentation Psych: Normal mood and affect. Objective Objective Clinical Data: Abnormal lab results 06/11/18 06/11/18 06/11/18 Range/Units 06:15 06:15 06:15 Hgb 10.7 L (13.5-17.5) g/dL Hct 33.1 L (40.0-50.0) % MCV 72.6 L (80-95) fL MCH 23.5 L (27.0-33.0) pg RDW 17.5 H (11.8-14.1) % Absolute Lymphocytes 0.81 L (1.2-3.4) k/cumm Chloride 111 H (98-107) mmol/L Carbon Dioxide 14.9 L (21.0-32.0) mmol/L Anion Gap 12.1 H (3-11) mmol/L BUN 52 H (7-18) mg/dL Creatinine 2.28 H (0.70-1.30) mg/dL Glucose 234 H (70-100) mg/dL Magnesium 1.7 L (1.8-2.4) mg/dL TIBC 217 L (250-450) ug/dL Vitamin B12 1315 H (193-986) pg/mL Folate > 20.0 H (8.6-20.0) ng/mL TSH 0.26 L (0.358-3.74) uIU/mL Vital Signs Temperature 36.5 C 06/11/18 12:30 Temperature Source Temporal Artery Scan 06/11/18 12:30 Pulse 70 06/11/18 10:29 Pulse 78 06/11/18 12:30 Respiratory Rate 28 H 06/11/18 12:30 Respiratory Effort Non-Labored 06/11/18 12:30 Respiratory Depth Normal 06/11/18 12:30 Respiratory Pattern Normal 06/11/18 12:30 Blood Pressure 171/72 H 06/11/18 10:29 Blood Pressure Mean 92 06/11/18 10:29 Blood Pressure Position Sitting 06/10/18 16:38 Pulse Oximetry 99 06/11/18 09:46 Oxygen Delivery Method Room Air 06/11/18 04:09 Oxygen Flow Rate 0 06/11/18 04:09 Pain Level 0 06/11/18 12:30 Comment 06/08/18 12:59 Intake & Output 06/10/18 06/11/18 06/11/18 23:59 11:59 23:59 Intake Total 2505 / 5397.5 1933.333 / 1933.333 Output Total 1575 / 3700 1715 / 1715 Balance 930 / 1697.5 218.333 / 218.333 Weight 101.1 kg Intake: IV 435 / 2167.5 983.333 / 983.333 Oral 1920 / 3080 750 / 750 Injectate 150 / 150 200 / 200 Gallbladder drain 150 / 150 200 / 200 Output: Drainage 90 / 90 Gallbladder drain 90 / 90 Urine 600 / 2275 1100 / 1100 Stool 975 / 1325 525 / 525 Other: Urine Color Light Cat Light Cat Urine Appearance Clear Clear Comment Indwelling ruiz catheter in place Pt has ruiz in Pt has ruiz in Stool Occult Blood Negative Laboratory Results WBC 6.19 k/cumm (4.4-10.8) D 06/11/18 06:15 RBC 4.56 m/cumm (4.50-6.00) 06/11/18 06:15 Hgb 10.7 g/dL (13.5-17.5) L 06/11/18 06:15 Hct 33.1 % (40.0-50.0) L 06/11/18 06:15 MCV 72.6 fL (80-95) L 06/11/18 06:15 MCH 23.5 pg (27.0-33.0) L 06/11/18 06:15 MCHC 32.3 g/dL (32.0-36.0) 06/11/18 06:15 RDW 17.5 % (11.8-14.1) H 06/11/18 06:15 Plt Count 342 x1000/uL (130-400) 06/11/18 06:15 MPV 10.0 fL (8.0-11.0) 06/11/18 06:15 Immature Gran % 0.6 06/11/18 06:15 Neutrophils % 78.2 06/11/18 06:15 Lymphocytes % 13.1 06/11/18 06:15 Monocytes % 7.4 06/11/18 06:15 Eosinophils % 0.5 06/11/18 06:15 Basophils % 0.2 06/11/18 06:15 Metamyelocytes % 0.0 % 06/10/18 06:30 Myelocytes % 0.0 % 06/10/18 06:30 Promyelocytes % 0 % 06/10/18 06:30 Absolute Neutrophils 4.84 k/cumm (1.2-6.7) 06/11/18 06:15 Absolute Lymphocytes 0.81 k/cumm (1.2-3.4) L 06/11/18 06:15 Absolute Monocytes 0.46 k/cumm (0.11-0.7) 06/11/18 06:15 Absolute Eosinophils 0.03 k/cumm (0.0-0.7) 06/11/18 06:15 Absolute Basophils 0.01 k/cumm (0.0-0.2) 06/11/18 06:15 Nucleated RBCs 1 /100WBC 06/08/18 10:00 Differential Comment Manual differential 06/10/18 06:30 Other Cell Type 0 06/10/18 06:30 RBC Morphology See below 06/10/18 06:30 Polychromasia Present 06/10/18 06:30 Hypochromasia 1+ 06/10/18 06:30 Poikilocytosis 2+ 06/10/18 06:30 Basophilic Stippling Present 06/08/18 10:00 Anisocytosis 2+ 06/10/18 06:30 Microcytosis 2+ 06/10/18 06:30 VBG pH 7.21 (7.32-7.43) L 06/09/18 11:38 VBG pCO2 29 mm/Hg (34-47) L 06/09/18 11:38 VBG pO2 108 mm/Hg (28-44) H 06/09/18 11:38 VBG HCO3 12 mmol/L (22-28) L 06/09/18 11:38 VBG Total CO2 11 mmol/L (22-29) L 06/09/18 11:38 VBG O2 Saturation 98 % (70-80) H 06/09/18 11:38 VBG Base Excess mmol/L (-3-3) 06/09/18 11:38 Sodium 138 mmol/L (136-145) 06/11/18 06:15 Potassium 4.9 mmol/L (3.5-5.1) 06/11/18 06:15 Chloride 111 mmol/L (98-107) H 06/11/18 06:15 Carbon Dioxide 14.9 mmol/L (21.0-32.0) L 06/11/18 06:15 Anion Gap 12.1 mmol/L (3-11) H 06/11/18 06:15 BUN 52 mg/dL (7-18) H 06/11/18 06:15 Creatinine 2.28 mg/dL (0.70-1.30) H 06/11/18 06:15 Estimated GFR/1.73 m2 29.55 (mL/min/1.73m2) 06/11/18 06:15 Glucose 234 mg/dL (70-100) H 06/11/18 06:15 Lactate 1.1 mmol/l (0.6-1.4) 06/09/18 00:58 Calcium 8.6 mg/dL (8.5-10.1) 06/11/18 06:15 Magnesium 1.7 mg/dL (1.8-2.4) L 06/11/18 06:15 Iron 52 ug/dL (50-175) 06/11/18 06:15 TIBC 217 ug/dL (250-450) L 06/11/18 06:15 Transferrin % Sat 24 % (20-55) 06/11/18 06:15 Ferritin 140 ng/mL (8-388) 06/11/18 06:15 Total Bilirubin 0.3 mg/dL (0.2-1.0) 06/08/18 10:00 AST 12 U/L (15-37) L 06/08/18 10:00 ALT 15 U/L (12-78) 06/08/18 10:00 Alkaline Phosphatase 310 U/L (46-116) H 06/08/18 10:00 Troponin I 0.05 ng/mL (0.00-0.06) 06/08/18 19:55 Total Protein 7.6 g/dL (6.4-8.2) 06/08/18 10:00 Albumin 2.9 g/dL (3.4-5.0) L 06/08/18 10:00 Lipase 130 U/L (73-393) 06/08/18 10:00 Vitamin B12 1315 pg/mL (193-986) H 06/11/18 06:15 Folate > 20.0 ng/mL (8.6-20.0) H 06/11/18 06:15 TSH 0.26 uIU/mL (0.358-3.74) L 06/11/18 06:15 Urine Color Yellow (Yellow) 06/08/18 13:30 Urine Clarity Cloudy 06/08/18 13:30 Urine pH 5.5 (5-8) 06/08/18 13:30 Ur Specific [place] 1.020 (1.005-1.025) 06/08/18 13:30 Urine Protein 100 mg/dL (Negative) H 06/08/18 13:30 Urine Ketones Negative mg/dL (Negative) 06/08/18 13:30 Urine Blood Small (Negative) H 06/08/18 13:30 Urine Nitrite Negative (Negative) 06/08/18 13:30 Urine Bilirubin Negative (Negative) 06/08/18 13:30 Urine Urobilinogen 0.2 EU/dL (Up TO 0.2) 06/08/18 13:30 Ur Leukocyte Esterase Moderate (Negative) H 06/08/18 13:30 Urine RBC Not Applicable 06/08/18 13:30 Urine WBC >50 HPF (0-5) 06/08/18 13:30 Ur Epithelial Cells Not Applicable 06/08/18 13:30 Urine Crystals Not Applicable 06/08/18 13:30 Urine Bacteria Not Applicable 06/08/18 13:30 Urine Mucus Not Applicable 06/08/18 13:30 Ur Culture Indicated? Yes 06/08/18 13:30 Urine Glucose Negative mg/dL (Negative) 06/08/18 13:30 Vancomycin Trough 15.2 ug/mL (10.0-20.0) 06/09/18 06:15
[2018-06-11] MEDS: Metoprolol 25 MG TAB 37.5 MG PO ×2 (14:03→23:17)
[2018-06-11] MEDS: Furosemide 40 MG TAB PO (14:04)
--- NOTE | 2018-06-11 14:16 | PT.INTREAT ---
Date of service: 06/11/18 Time of Service: 14:16 PT Notes Inpatient Physical Therapy Treatment Note [facility] Date: 06/11/18 PRECAUTIONS: Fall SUBJECTIVE: Brendan states that he hasn't gotten much rest today, so he's feeling pretty tired. OBJECTIVE: PAIN: No c/o pain BED MOBILITY/TRANSFERS Supine-sit: S Sit-stand: S Stand-sit:SBA Bed-chair: SBA GAIT Assistive Device: FWW Weight bearing: Full Assist: SBA Distance: 5' THEREX: Patient completed several LE strengthening exercises, in a seated position, as per flow sheet. ASSESSMENT: Patient would benefit from continued participation in strengthening and gait and transfer training for improved mobility and activity tolerance. PLAN: Continue with PT's POC TREATMENT CODE/TIME: 25 minutes; [id number], [id number]
--- NOTE | 2018-06-11 15:28 | CHAPLAIN ---
Brendan was sitting up in his chair watching out the window when I visited. He told me about a colorful sunrise he saw this morning. During our conversation, Brendan talked about trips to [facility] with his girlfriend in the early 80s, and a trip to [facility] the [facility] with his brother. He talked about places in [place] he would like to visit again, but I can't drive now, he said. I will continue to visit Brendan.
--- NOTE | 2018-06-11 15:52 | DI.CT_ITS ---
SYMPTOMS/DIAGNOSIS: SUSPECTED OSTEOMYELITIS, BILATERAL FEET/TOES; ACUTE KIDNEY INJURY ON CHRONIC KIDNEY DISEASE FOOT CT, BILATERAL: CT examination of both feet was performed to evaluate for possible osteomyelitis. There is marked deformity of the toes bilaterally. There is significant bone loss of the head of the 5th metatarsal and marked bony loss with a few flecks of calcific or ossific density remaining of the proximal and middle phalanges of the 5th toe of the right foot. The findings in the appropriate clinical setting could represent acute and/or chronic osteomyelitis. No additional significant regions of bone resorption are seen. Of course, MR would be far more sensitive in detecting early osteomyelitis in comparison to CT. CONCLUSION: Findings suspicious for osteomyelitis involving 5th toe, proximal and middle phalanges and head of the 5th metatarsal of the right foot.
--- NOTE | 2018-06-11 17:12 | NUR.NOTE ---
Pt had very heme positive stool form ostomy in AM and lessened to trace heme positive stool by 1500. Dr. Bravo in the unit to get update and gave order for Aspirin to be D/Cd. Nursing Note:
[2018-06-11] MEDS: Normal Saline Flush 10 ML SYR (19:26)
[2018-06-11] MEDS: Pantoprazole 40 MG VIAL IVP (19:26)
[2018-06-11] MEDS: risperiDONE 1 MG TAB 3 MG PO (23:25)
[2018-06-11] MEDS: traZODone 50 MG TAB PO (23:25)
[2018-06-12] VITALS (29 sets, daily range): BP systolic 128–159; BP diastolic 44–82; PULSE 54–121; RESP 17–32; TEMP 36.1–36.6; O2SAT 96–98
[2018-06-12] MEDS: Normal Saline Flush 10 ML SYR ×3 (03:55→10:34)
[2018-06-12] MEDS: Hydrocortisone SOD SUC. 100 MG VIAL 50 MG IVP ×3 (03:55→21:22)
[2018-06-12] MEDS: Metoprolol 25 MG TAB 37.5 MG PO ×3 (06:24→21:24)
[2018-06-12] MEDS: Levothyroxine 25 MCG TAB PO (06:25)
[2018-06-12] MEDS: Insulin NPH-Human 300 UNITS/3 ML PEN 16 UNIT SC ×3 (06:33→21:36)
[2018-06-12 07:09] LABS: Abs Immature Grans 0.07 k/cumm (0.0-0.09); Absolute Basophil Count 0.01 k/cumm (0.0-0.2); Absolute Eosinophil Count 0.05 k/cumm (0.0-0.7); Absolute Monocyte Count 0.44 k/cumm (0.11-0.7); Basophils % 0.1; Eosinophils % 0.6; HCT 35.3 % (40.0-50.0); HGB 11.3 g/dL (13.5-17.5); Immature Grans % 0.8; Lymphocytes % 7.7; Mean Corpuscular Hemoglobin 23.3 pg (27.0-33.0); Mean Corpuscular Volume 72.8 fL (80-95); Mean Platelet Volume 9.4 fL (8.0-11.0); Monocytes % 4.9; Neutrophils % 85.9; Platelet Count 338 x1000/uL (130-400); RBC 4.85 m/cumm (4.50-6.00); RBC Distribution Width 17.5 % (11.8-14.1); White Blood Cell Count 9.06 k/cumm (4.4-10.8)
[2018-06-12 07:13] LABS: Absolute Neutrophil Count 7.78 k/cumm (1.2-6.7)
[2018-06-12 07:17] LABS: Anion Gap 11.6 mmol/L (3-11); BUN 48 mg/dL (7-18); CO2 17.4 mmol/L (21.0-32.0); CREATININE 2.42 mg/dL (0.70-1.30); Calcium 8.7 mg/dL (8.5-10.1); Chloride 111 mmol/L (98-107); Estimated GFR 27.58 (mL/min/1.73m2); Glucose 155 mg/dL (70-100); Magnesium 1.9 mg/dL (1.8-2.4); Potassium 4.4 mmol/L (3.5-5.1); Sodium 140 mmol/L (136-145)
[2018-06-12] MEDS: Pantoprazole 40 MG VIAL IVP ×2 (07:50→21:23)
[2018-06-12] MEDS: Insulin Glargine 300 UNITS/3 ML PEN 60 UNITS SC (07:51)
[2018-06-12] MEDS: Insulin Aspart 300 UNITS/3 ML PEN SC ×3 (07:52→17:37)
[2018-06-12] MEDS: Folic Acid 1 MG TAB PO (07:54)
[2018-06-12] MEDS: Ascorbic Acid 500 MG TAB 250 MG PO ×2 (07:54→21:26)
[2018-06-12] MEDS: Lactobacillus Acidophilus CAP 1 CAP PO ×3 (07:54→21:28)
[2018-06-12] MEDS: Multivitamin w/Minerals TAB 1 TAB PO (07:54)
[2018-06-12] MEDS: Apixaban 5 MG TAB PO ×2 (07:55→21:28)
[2018-06-12] MEDS: Hydrocortisone 10 MG TAB PO ×2 (07:55→21:29)
[2018-06-12] MEDS: Venlafaxine 37.5 MG CAPCR 75 MG PO (07:56)
[2018-06-12] MEDS: Cyanocobalamin 500 MCG TAB 1000 MCG PO (07:56)
[2018-06-12] MEDS: Sodium Bicarbonate 650 MG TAB PO ×3 (07:58→21:28)
[2018-06-12] MEDS: cloNIDine 0.1 MG TAB 0.3 MG PO ×3 (07:58→21:28)
[2018-06-12] MEDS: Terazosin 2 MG CAP 4 MG PO ×2 (07:58→21:28)
[2018-06-12] MEDS: hydrALAZINE 10 MG TAB PO ×3 (07:58→21:28)
[2018-06-12] MEDS: amLODIPine 10 MG TAB PO (07:59)
[2018-06-12] MEDS: Ferrous Sulfate 325 MG TAB PO ×2 (08:03→21:28)
[2018-06-12] MEDS: Normal Saline Flush 10 ML SYR IVP ×2 (08:09→21:23)
--- NOTE | 2018-06-12 08:19 | PDOC.CMPRO ---
Care Management Progress Note S/O: Brendan remains ICU level of care and pleasant in interaction. Per MD, Brendan's plan remains unclear at this time; he will have podiatry consult on Friday. Anticipate tissue biopsy as well. He has been on [facility]p antibiotics with continued illness. Brendan refused his MRI; per MD CT completed to provide further information. CM faxed additional clinicals to [facility]; anticipate Brendan will remain at [facility] through the weekend. A: 58 year old male admitted to [facility] P: Brendan will continue to be closely monitored and evaluated for further needs. He will eventually return to the [facility] when ready per MD. CM will continue to follow and support discharge planning considerations.
[2018-06-12] MEDS: Furosemide 40 MG TAB PO (10:40)
[2018-06-12] MEDS: Magnesium Chloride 64 MG TABCR PO ×2 (10:40→21:28)
--- NOTE | 2018-06-12 12:11 | PT.INTREAT ---
Date of service: 06/12/18 Time of Service: 12:11 PT Notes Inpatient Physical Therapy Treatment Note [facility] Date: 06/12/18 PRECAUTIONS: Fall SUBJECTIVE: Brendan reports that he is feeling a little better today. OBJECTIVE: PAIN: No c/o pain BED MOBILITY/TRANSFERS Supine-sit: S Sit-stand: S from bed; Min A from low surface recliner Stand-sit: CGA Bed-chair: SBA GAIT Assistive Device: FWW Weight bearing: Full Assist: SBA/CGA Distance: 5' + 30' ASSESSMENT: Patient would benefit from continued participation in strengthening and gait and transfer training for improved mobility and activity tolerance. PLAN: Continue with PT's POC TREATMENT CODE/TIME: 15 minutes; [id number]
--- NOTE | 2018-06-12 13:27 | PGE_ITS ---
Date of Service Date of service: 06/12/18 Time of Service: 13:26 Assessment and Plan (1) Atrial flutter, paroxysmal: Current visit: Yes Status: Acute New diagnosis, likely precipitated by dehydration and potential infection. Minimal troponin leak likely demand in the setting of illness and poor clearance from worsening renal function. Quickly normalized ECHO last checked 05/05, with normal LVEF, and no significant valvulopathy. HR appears controlled on increased dose BB that was also changed to tartrate formulation for ease of titration. Discontinued Cardizem gtt due to bradycardia, but with prn IV Cardizem if needed. Initiated on AC as CHADSVASC2 score is adequately elevated - patient reports a history of GIB prior to his colectomy from Crohn's, none since - however, with mild drop in Hgb, microcytic anemia, and Heme + stool. Will continue Apixaban, with discontinued Carbamazepine, changed to IV BID Protonix. Monitor H/H - currently stable. (2) Elevated troponin I level: Current visit: Yes Status: Acute Minimal and equivocal, in setting of acute illness, dehydration, Atrial Flutter with rapid rate, and poor clearance due to JESUS superimposed on CKD. Troponin already normalized. No evidence of NSTEMI. (3) UTI (urinary tract infection): Current visit: Yes Status: Acute Evidence of Pyuria with +LE, but Urine cultures negative except for yeast. Patient has had numerous recent hospitalizations, with administration of stress dosed steroids. Discussed case with ID, with recommendations for treatment. Initiate renally dosed Diflucan, check speciation of yeast, and check fungal cultures.Renal Ultrasound unremarkable. Downing discontinued. Consider potential diagnosis of prostatitis as well if repeat urinalysis does not clear. Qualifiers: Urinary tract infection type: site unspecified Hematuria presence: without hematuria Qualified Code(s): N39.0 - Urinary tract infection, site not specified (4) 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: Current visit: Yes Status: Acute Podiatry unavailable. Wound care consulted with concern for osteo. Patient is refusing MRI - CT checked and suspicious for Osteo involving the right fifth digit. Patient's history was reviewed in detail - in February the patient was noted to have a non-healing diabetic foot ulcer, with Xray showing evidence of potential osteo of the right 5th metatarsal. S/p debridement on 03/06 with resection of the 5th MPJ - culture of the tissue grew MRSA and Proteus Mirabilis. Per discussion with podiatry Osteo was not confirmed by biopsy. He received an approximate 2 week course of antibiotics for this. Now with potential concern for Osteo, again by imaging. Discussed case with ID - again considering that Mr. Corley has been bacteremic with MRSA on 2 prior occasions, and undergone prolonged treatment with Vancomycin without a clear source discovered and negative TTE's. Recommendation is to wait and maintain off antibiotics, recheck blood cultures, and await podiatry consultation after the weekend. If he experiences fevers then may consider this as source. Qualifiers: Laterality: left Non-pressure ulcer stage: limited to breakdown of skin Qualified Code(s): E11.621 - Type 2 diabetes mellitus with foot ulcer; L97.521 - Non-pressure chronic ulcer of other part of left foot limited to breakdown of skin (5) Diabetic foot ulcer: Current visit: No Status: Chronic (6) Adrenal insufficiency: Current visit: No Status: Chronic Due to long-term steroid use. Was recently switched from prednisone to Hydrocort. Will ensure stress dose steroids, with slow taper down to home regimen. (7) Chronic cholecystitis: Current visit: No Status: Chronic Drain appears to be functioning well and continues to drain, and exam is benign. Has been deemed a poor surgical candidate. (8) Acute on chronic kidney failure: Current visit: Yes Status: Acute Appears to be prerenal in etiology, with creatinine responding to IVF resuscitation. Current creatinine back to baseline. Patient no longer on ARYA-I. Has lengthy history of significant hyperkalemia, and with K+ that had increased. Renal function appears back to baseline - discontinued IVFs. Continue renal low potassium diet, renally dose medications, avoid nephrotoxins, and monitor renal function skilled nursing. Hyperkalemia improved with Kayexalate and resolution of JESUS. Qualifiers: Acute renal failure type: unspecified Chronic kidney disease stage: stage 4 (severe) Qualified Code(s): N17.9 - Acute kidney failure, unspecified; N18.4 - Chronic kidney disease, stage 4 (severe) (9) Hyperkalemia: Current visit: No Status: Resolved Potassium normalized. Discontinue Kayexalate. Continue renal, low potassium diet. (10) MRSA bacteremia: Current visit: No Status: Acute Vancomycin completed. Repeat Blood Culture obtained. Negative prior work- up as previously stated, including CT chest, abdomen, and pelvis, Tagged WBC Scan, TTE, CT of the right elbow. Previous debridement with bone cultures of the right lower digit in February with growth of MRSA as well, but not osteo. Currently with evidence of potential Osteo of the right foot 5th digit - plan is to hold off antibiotics, repeat blood cultures, and await podiatry consult per in-depth discussion with ID. PICC line still in place. (11) Poorly controlled type 2 diabetes mellitus with circulatory disorder: Current visit: No Status: Chronic Continue lantus, ISS. Monitor BS. (12) Anemia: Current visit: No Status: Chronic Microcytic, with Heme + blood. Iron studies with low TIBC, but inappropriately normal Ferritin - potential for Anemia of Chronic Disease with superimposed blood loss. B12 and FA no deficient, but with low TSH as well. Change PPI to IV formulation and increase to BID dosing. Monitor carefully, and consider discontinuation of anticoagulation if continued drop in Hgb - currently appearing stable. (13) Hypothyroidism: Current visit: No Status: Chronic Low TSH - in setting of acute illness. However, patient with substantial weight loss over the course of the last 6 months. Decrease dose, with need for r epeat TSH values in a few weeks. (14) DVT prophylaxis: Current visit: Yes Status: Acute Active anticoagulation initaited as above. (15) Advance directive on file: Current visit: Yes Status: Acute Full Code. Subjective Interval history since last seen: 57 year old resident of the [facility], with a recent history of recurrent MRSA bacteremia on IV vancomycin, admitted from [facility] Emergency Department on 06/08 with a diagnosis of UTI, JESUS, and new Atrial Flutter. Mr. Corley has been hospitalized here at [facility] with sepsis on numerous prior occasions. He has a history of Group C strep and MRSA bacteremia, as well as E. Fecalis UTI in the past. He suffered a cardiopulmonary arrest necessitating a transfer to [facility]. He was treated for Choleycystitis, and as he is not a surgical candidate, was treated conservatively with a pigtail catheter that remains in place. He is chronically a resident at the [facility]. His other medical history includes DM, Adrenal insufficiency secondary to chronic steroid use, RA, Crohn's disease s/p Colectomy, OA, CKD with prior JESUS and resultant hyperkalemia, HTN, CAD, hypothyroidism, Obesity, and chronic pain. He's had recurrent UTIs, and also has a history of a non-healing diabetic foot ulcer for which he has undergone debridement in the past with excision of toe, without evidence of Osteo. He also suffers from frequent hyperkalemia. During his last hospitalization in April he was treated for MRSA bacteremia again, with a negative work-up that included TTE, CT of the chest, abdomen, and pelvis, CT of the elbow, and Tagged WBC Scan. KELLEE was not procured as the patient is a poor candidate for this procedure, but was recommended if recurrence of bacteremia. He has concluded therapy with Vancomycin. Mr. Corley presented to the ED from the custodial for evaluation of generalized abdominal pain with an episode of emesis. He reported a 2-3 week history of decreased oral intake and weight loss - work-up was significant for JESUS, Anion Gap Acidosis, Hyponatremia,and Pyuria by urinalysis. CT of the a/p showed no acute pathology, CXR was without infiltrate, and subsequent renal ultrasound unremarkable. He was also noted to be in Atrial Flutter, which is a new diagnosis for him. He was referred for admission. This morning the patient reports improved symptoms overall. There has been no further episodes of nausea or vomiting, and he is tolerating oral intake well. He did not tolerate a Cardizem drip due to bradycardia, and is now well controlled with adjustment of his BB dose - remains in Atrial Flutter. Despite his pyuria his Urine Culture only shows evidence of yeast. Wound Consult with concern for potential Osteo of the digits, and CT of the feet shows evidence of potential Osteo of the left 5th digit. No overnight events reported. He remains afebrile. Exam Narrative Exam Narrative: General: Patient appears comfortable, sitting in bed , chronically ill appearing, obese, AAOX3, NAD Neck: Supple CV: Irregular, nontachycardic, S1S2 Pulmonary: Clear to auscultation bilaterally, no crackles, wheezing, or rhonchi Abdomen: + Bowel Sounds, soft, nontender, nondistended, obese in contour. Il eostomy and cholecystostomy drains noted. Vascular: B/l lower extremity edema and chronic hyperpigmentation Psych: Normal mood and affect. Objective Objective Clinical Data: Abnormal lab results 06/12/18 06/12/18 Range/Units 06:50 06:50 Hgb 11.3 L (13.5-17.5) g/dL Hct 35.3 L (40.0-50.0) % MCV 72.8 L (80-95) fL MCH 23.3 L (27.0-33.0) pg RDW 17.5 H (11.8-14.1) % Absolute Neutrophils 7.78 H (1.2-6.7) k/cumm Absolute Lymphocytes 0.70 L (1.2-3.4) k/cumm Chloride 111 H (98-107) mmol/L Carbon Dioxide 17.4 L (21.0-32.0) mmol/L Anion Gap 11.6 H (3-11) mmol/L BUN 48 H (7-18) mg/dL Creatinine 2.42 H (0.70-1.30) mg/dL Glucose 155 H D (70-100) mg/dL Vital Signs Temperature 36.6 C 06/12/18 11:37 Temperature Source Temporal Artery Scan 06/12/18 11:37 Pulse 79 06/12/18 07:15 Pulse 81 06/12/18 08:00 Respiratory Rate 17 06/12/18 08:00 Respiratory Effort 06/12/18 11:37 Respiratory Depth Shallow 06/12/18 11:37 Respiratory Pattern Normal 06/12/18 11:37 Blood Pressure 128/82 06/12/18 07:15 Blood Pressure Mean 92 06/12/18 07:15 Blood Pressure Position Sitting 06/10/18 16:38 Pulse Oximetry 97 06/12/18 07:15 Oxygen Delivery Method Room Air 06/12/18 03:50 Oxygen Flow Rate 0 06/12/18 03:50 Pain Level 2 06/12/18 07:07 Comment 06/08/18 12:59 Intake & Output 06/11/18 06/12/18 06/12/18 23:59 11:59 23:59 Intake Total 1667 / 3600.333 1430 / 1430 Output Total 3625 / 5340 3050 / 3050 Balance -1958 / -1739.667 -1620 / -1620 Intake: IV 1130 / 2113.333 Oral 537 / 1287 1430 / 1430 Output: Drainage 250 / 250 Gallbladder drain 250 / 250 Urine 2425 / 3525 1175 / 1175 Stool 1200 / 1725 1625 / 1625 Other: Urine Color Pale Yellow Yellow Urine Appearance Clear Clear Urine Odor None Normal Comment pt using urinal. pt using urinal. Stool Occult Blood Positive Stool Characteristics Liquid Formed Brown Liquid Voiding Methods Urinal Urinal Laboratory Results WBC 9.06 k/cumm (4.4-10.8) D 06/12/18 06:50 RBC 4.85 m/cumm (4.50-6.00) 06/12/18 06:50 Hgb 11.3 g/dL (13.5-17.5) L 06/12/18 06:50 Hct 35.3 % (40.0-50.0) L 06/12/18 06:50 MCV 72.8 fL (80-95) L 06/12/18 06:50 MCH 23.3 pg (27.0-33.0) L 06/12/18 06:50 MCHC 32.0 g/dL (32.0-36.0) 06/12/18 06:50 RDW 17.5 % (11.8-14.1) H 06/12/18 06:50 Plt Count 338 x1000/uL (130-400) 06/12/18 06:50 MPV 9.4 fL (8.0-11.0) 06/12/18 06:50 Immature Gran % 0.8 06/12/18 06:50 Neutrophils % 85.9 06/12/18 06:50 Lymphocytes % 7.7 06/12/18 06:50 Monocytes % 4.9 06/12/18 06:50 Eosinophils % 0.6 06/12/18 06:50 Basophils % 0.1 06/12/18 06:50 Metamyelocytes % 0.0 % 06/10/18 06:30 Myelocytes % 0.0 % 06/10/18 06:30 Promyelocytes % 0 % 06/10/18 06:30 Absolute Neutrophils 7.78 k/cumm (1.2-6.7) H 06/12/18 06:50 Absolute Lymphocytes 0.70 k/cumm (1.2-3.4) L 06/12/18 06:50 Absolute Monocytes 0.44 k/cumm (0.11-0.7) 06/12/18 06:50 Absolute Eosinophils 0.05 k/cumm (0.0-0.7) 06/12/18 06:50 Absolute Basophils 0.01 k/cumm (0.0-0.2) 06/12/18 06:50 Nucleated RBCs 1 /100WBC 06/08/18 10:00 Differential Comment Manual differential 06/10/18 06:30 Other Cell Type 0 06/10/18 06:30 RBC Morphology See below 06/10/18 06:30 Polychromasia Present 06/10/18 06:30 Hypochromasia 1+ 06/10/18 06:30 Poikilocytosis 2+ 06/10/18 06:30 Basophilic Stippling Present 06/08/18 10:00 Anisocytosis 2+ 06/10/18 06:30 Microcytosis 2+ 06/10/18 06:30 VBG pH 7.21 (7.32-7.43) L 06/09/18 11:38 VBG pCO2 29 mm/Hg (34-47) L 06/09/18 11:38 VBG pO2 108 mm/Hg (28-44) H 06/09/18 11:38 VBG HCO3 12 mmol/L (22-28) L 06/09/18 11:38 VBG Total CO2 11 mmol/L (22-29) L 06/09/18 11:38 VBG O2 Saturation 98 % (70-80) H 06/09/18 11:38 VBG Base Excess mmol/L (-3-3) 06/09/18 11:38 Sodium 140 mmol/L (136-145) 06/12/18 06:50 Potassium 4.4 mmol/L (3.5-5.1) 06/12/18 06:50 Chloride 111 mmol/L (98-107) H 06/12/18 06:50 Carbon Dioxide 17.4 mmol/L (21.0-32.0) L 06/12/18 06:50 Anion Gap 11.6 mmol/L (3-11) H 06/12/18 06:50 BUN 48 mg/dL (7-18) H 06/12/18 06:50 Creatinine 2.42 mg/dL (0.70-1.30) H 06/12/18 06:50 Estimated GFR/1.73 m2 27.58 (mL/min/1.73m2) 06/12/18 06:50 Glucose 155 mg/dL (70-100) H D 06/12/18 06:50 Lactate 1.1 mmol/l (0.6-1.4) 06/09/18 00:58 Calcium 8.7 mg/dL (8.5-10.1) 06/12/18 06:50 Magnesium 1.9 mg/dL (1.8-2.4) 06/12/18 06:50 Iron 52 ug/dL (50-175) 06/11/18 06:15 TIBC 217 ug/dL (250-450) L 06/11/18 06:15 Transferrin % Sat 24 % (20-55) 06/11/18 06:15 Ferritin 140 ng/mL (8-388) 06/11/18 06:15 Total Bilirubin 0.3 mg/dL (0.2-1.0) 06/08/18 10:00 AST 12 U/L (15-37) L 06/08/18 10:00 ALT 15 U/L (12-78) 06/08/18 10:00 Alkaline Phosphatase 310 U/L (46-116) H 06/08/18 10:00 Troponin I 0.05 ng/mL (0.00-0.06) 06/08/18 19:55 Total Protein 7.6 g/dL (6.4-8.2) 06/08/18 10:00 Albumin 2.9 g/dL (3.4-5.0) L 06/08/18 10:00 Lipase 130 U/L (73-393) 06/08/18 10:00 Vitamin B12 1315 pg/mL (193-986) H 06/11/18 06:15 Folate > 20.0 ng/mL (8.6-20.0) H 06/11/18 06:15 TSH 0.26 uIU/mL (0.358-3.74) L 06/11/18 06:15 Urine Color Yellow (Yellow) 06/08/18 13:30 Urine Clarity Cloudy 06/08/18 13:30 Urine pH 5.5 (5-8) 06/08/18 13:30 Ur Specific [place] 1.020 (1.005-1.025) 06/08/18 13:30 Urine Protein 100 mg/dL (Negative) H 06/08/18 13:30 Urine Ketones Negative mg/dL (Negative) 06/08/18 13:30 Urine Blood Small (Negative) H 06/08/18 13:30 Urine Nitrite Negative (Negative) 06/08/18 13:30 Urine Bilirubin Negative (Negative) 06/08/18 13:30 Urine Urobilinogen 0.2 EU/dL (Up TO 0.2) 06/08/18 13:30 Ur Leukocyte Esterase Moderate (Negative) H 06/08/18 13:30 Urine RBC Not Applicable 06/08/18 13:30 Urine WBC >50 HPF (0-5) 06/08/18 13:30 Ur Epithelial Cells Not Applicable 06/08/18 13:30 Urine Crystals Not Applicable 06/08/18 13:30 Urine Bacteria Not Applicable 06/08/18 13:30 Urine Mucus Not Applicable 06/08/18 13:30 Ur Culture Indicated? Yes 06/08/18 13:30 Urine Glucose Negative mg/dL (Negative) 06/08/18 13:30 Vancomycin Trough 15.2 ug/mL (10.0-20.0) 06/09/18 06:15
--- NOTE | 2018-06-12 13:58 | NUR.NOTE ---
Attempted blood draw from left PICC, blood return extremely poor, only able to obtain 2 ml for discard, not enough for blood cultures. cardiac catheterization technologist present during this procedure, will draw peripherally. Nursing Note:
[2018-06-12] MEDS: Fluconazole 100 MG TAB 200 MG PO (14:18)
--- NOTE | 2018-06-12 14:44 | PT.INNT ---
Date of service: 06/12/18 Time of Service: 14:44 PT Notes 06/12/18 Pt refused his PT session sating that he was too tired and when I mentioned it could help wake him up he stated that he didn't want to wake up or complete PT.
[2018-06-12] MEDS: traZODone 50 MG TAB PO (21:29)
[2018-06-12] MEDS: risperiDONE 1 MG TAB 3 MG PO (21:29)
[2018-06-12] MEDS: Acetaminophen 325 MG TAB PO (22:07)
[2018-06-13] VITALS (41 sets, daily range): BP systolic 105–154; BP diastolic 57–90; PULSE 49–117; RESP 13–27; TEMP 36.1–36.5; O2SAT 96–100
[2018-06-13] MEDS: Normal Saline Flush 10 ML SYR IVP ×3 (00:26→19:09)
[2018-06-13] MEDS: oxyCODONE 5 MG TAB PO (00:28)
[2018-06-13] MEDS: Acetaminophen 325 MG TAB PO (04:20)
[2018-06-13] MEDS: Levothyroxine 25 MCG TAB PO (05:22)
[2018-06-13] MEDS: Insulin NPH-Human 300 UNITS/3 ML PEN 16 UNIT SC ×3 (05:48→22:07)
[2018-06-13 06:14] LABS: Abs Immature Grans 0.09 k/cumm (0.0-0.09); Absolute Basophil Count 0.02 k/cumm (0.0-0.2); Absolute Eosinophil Count 0.13 k/cumm (0.0-0.7); Absolute Lymphocyte Count 0.98 k/cumm (1.2-3.4); Absolute Monocyte Count 0.62 k/cumm (0.11-0.7); Absolute Neutrophil Count 6.46 k/cumm (1.2-6.7); Basophils % 0.2; Eosinophils % 1.6; HCT 34.7 % (40.0-50.0); HGB 11.3 g/dL (13.5-17.5); Immature Grans % 1.1; Lymphocytes % 11.8; Mean Corp. HGB Concentration 32.6 g/dL (32.0-36.0); Mean Corpuscular Hemoglobin 23.8 pg (27.0-33.0); Mean Corpuscular Volume 73.2 fL (80-95); Mean Platelet Volume 9.3 fL (8.0-11.0); Monocytes % 7.5; Neutrophils % 77.8; Platelet Count 339 x1000/uL (130-400); RBC 4.74 m/cumm (4.50-6.00); RBC Distribution Width 17.5 % (11.8-14.1)
[2018-06-13 06:21] LABS: BUN 51 mg/dL (7-18); CREATININE 2.57 mg/dL (0.70-1.30); Calcium 8.3 mg/dL (8.5-10.1); Chloride 111 mmol/L (98-107); Estimated GFR 25.73 (mL/min/1.73m2); Glucose 107 mg/dL (70-100); Magnesium 1.7 mg/dL (1.8-2.4); Potassium 4.5 mmol/L (3.5-5.1); Sodium 140 mmol/L (136-145)
--- NOTE | 2018-06-13 07:58 | PDOC.CMPRO ---
- If Service Date Differs Date of service: 06/13/18 Time of Service: 07:58 Care Management Progress Note S/O: Brendan is sitting up in the chair in his room. He transition to medical surgical status today. Anticipate he will have an echo while inpatient related to aflutter he will also have podiatry consult on Friday including a wound culture. No other changes today he remains on IV steroids. A: 58 year old male admitted to [facility] with abdominal pain and single episode of vomiting. Brendan has chronic disease including adrenal insufficiency on chronic steroids, Chrons disease with ostomy. He also has DM, Chronic kidney disease, neuropathy and decrease mobility. P: Brendan remains on IV steroids for adrenal insufficiency. He will remain on telemetry related to aflutter. He will eventually return to the [facility] when ready per MD. CM will continue to follow and support discharge planning considerations.
--- NOTE | 2018-06-13 08:04 | CMPROGNOTE_ITS ---
- If Service Date Differs Date of service: 06/13/18 Time of Service: 07:58 Care Management Progress Note S/O: Brendan is sitting up in the chair in his room. He transition to medical surgical status today. Anticipate he will have an echo while inpatient related to aflutter he will also have podiatry consult on Friday including a wound culture. No other changes today he remains on IV steroids. A: 58 year old male admitted to [facility] with abdominal pain and single episode of vomiting. Brendan has chronic disease including adrenal insufficiency on chronic steroids, Chrons disease with ostomy. He also has DM, Chronic kidney disease, neuropathy and decrease mobility. P: Brendan remains on IV steroids for adrenal insufficiency. He will remain on telemetry related to aflutter. He will eventually return to the [facility] when ready per MD. CM will continue to follow and support discharge planning consid erations.
[2018-06-13] MEDS: cloNIDine 0.1 MG TAB 0.3 MG PO ×3 (08:56→19:08)
[2018-06-13] MEDS: Terazosin 2 MG CAP 4 MG PO ×2 (08:56→19:08)
[2018-06-13] MEDS: Sodium Bicarbonate 650 MG TAB PO ×3 (08:57→19:08)
[2018-06-13] MEDS: Fluconazole 100 MG TAB 200 MG PO (08:57)
[2018-06-13] MEDS: Folic Acid 1 MG TAB PO (08:57)
[2018-06-13] MEDS: Multivitamin w/Minerals TAB 1 TAB PO (08:57)
[2018-06-13] MEDS: hydrALAZINE 10 MG TAB PO ×3 (08:57→19:08)
[2018-06-13] MEDS: amLODIPine 10 MG TAB PO (08:57)
[2018-06-13] MEDS: Venlafaxine 37.5 MG CAPCR 75 MG PO (08:57)
[2018-06-13] MEDS: Lactobacillus Acidophilus CAP 1 CAP PO ×3 (08:58→19:08)
[2018-06-13] MEDS: Apixaban 5 MG TAB PO ×2 (08:58→19:08)
[2018-06-13] MEDS: Ferrous Sulfate 325 MG TAB PO ×2 (08:58→19:08)
[2018-06-13] MEDS: Hydrocortisone 10 MG TAB PO ×2 (08:58→19:08)
[2018-06-13] MEDS: Cyanocobalamin 500 MCG TAB 1000 MCG PO (08:58)
[2018-06-13] MEDS: Ascorbic Acid 500 MG TAB 250 MG PO ×2 (08:58→19:08)
[2018-06-13] MEDS: Furosemide 40 MG TAB PO (08:58)
[2018-06-13] MEDS: Hydrocortisone SOD SUC. 100 MG VIAL 50 MG IVP (08:59)
[2018-06-13] MEDS: Pantoprazole 40 MG VIAL IVP ×2 (08:59→19:18)
[2018-06-13] MEDS: Insulin Glargine 300 UNITS/3 ML PEN 60 UNITS SC (09:00)
[2018-06-13] MEDS: Magnesium Chloride 64 MG TABCR PO ×2 (09:22→22:01)
[2018-06-13] MEDS: MAGNESIUM SULFATE 2 GM/50 ML BAG IVPB (11:24)
[2018-06-13] MEDS: Insulin Aspart 300 UNITS/3 ML PEN SC ×2 (12:18→17:12)
--- NOTE | 2018-06-13 12:19 | PGE_ITS ---
Date of Service Date of service: 06/13/18 Time of Service: 12:05 Assessment and Plan (1) Atrial flutter, paroxysmal: Current visit: Yes Status: Acute New diagnosis, likely precipitated by dehydration and potential infection. However, the patient does have a history of untreated JESSICA, which is likely a big contributor. I would like to repeat the echo to make sure he does not have an intracardiac thrombus, which would make us switch mode of anticoagulation. HR is controlled on current dose of metoprolol; current pauses are not clinically significant. H/H is stable on eliquis, which is reassuring, even though there is chronic hemoccult positivity due to Ojnathon's. Continue close moitoring of H/H. Continue tele. Ok to transfer out of ICU. (2) Elevated troponin I level: Current visit: Yes Status: Acute Minimal and equivocal, in setting of acute illness, dehydration, Atrial Flutter with rapid rate, and poor clearance due to JESUS superimposed on CKD. Troponin already normalized. No evidence of NSTEMI. (3) UTI (urinary tract infection): Current visit: Yes Status: Acute Evidence of Pyuria; c&S positive for yeast (not speciated). Continue fluconazole, per ID recommendation. Await speciation of yeast,fungal cultures. Renal Ultrasound unremarkable. Downing discontinued. Consider potential diagnosis of prostatitis as well if repeat urinalysis does not clear. 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 Off abx, per ID - await podiatry consultation on 06/15/18 for bone cultures. If febrile, would start abx. (S/p debridement on 03/06 with resection of the 5th MPJ - culture of the tissue grew MRSA and Proteus Mirabilis. Osteo was not confirmed by biopsy. He received an approximate 2 week course of antibiotics for this.) Qualifiers: Laterality: left Non-pressure ulcer stage: limited to breakdown of skin Qualified Code(s): E11.621 - Type 2 diabetes mellitus with foot ulcer; L97.521 - Non-pressure chronic ulcer of other part of left foot limited to breakdown of skin (5) Diabetic foot ulcer: Current visit: No Status: Chronic As above (6) Adrenal insufficiency: Current visit: No Status: Chronic Due to long-term steroid use. Was recently switched from prednisone to Hydrocortisone. Will ensure stress dose steroids, with slow taper down to home regimen. (7) Chronic cholecystitis: Current visit: No Status: Chronic Drain functioning well. Has been deemed a poor surgical candidate. F/u with general surgery as outpatient. (8) Acute on chronic kidney failure: Current visit: Yes Status: Acute Prerenal, improved to baseline with IVF. Tolerating diuresis. Qualifiers: Acute renal failure type: unspecified Chronic kidney disease stage: stage 4 (severe) Qualified Code(s): N17.9 - Acute kidney failure, unspecified; N18.4 - Chronic kidney disease, stage 4 (severe) (9) Hyperkalemia: Current visit: No Status: Resolved Continue renal diet (10) MRSA bacteremia: Current visit: No Status: Resolved Prior to this admission, already treated; Vancomycin completed. Repeat Blood Culture obtained, pending (including from PICC). No current evidence for bacteremia otherwise. It is possible that the source is the diabetic ulcer of R foot with osteo. (11) Poorly controlled type 2 diabetes mellitus with circulatory disorder: Current visit: No Status: Chronic Continue lantus, ISS. Monitor BS. (12) Anemia: Current visit: No Status: Chronic Microcytic, with Heme + blood. Iron studies with low TIBC, but inappropriately normal Ferritin - potential for Anemia of Chronic Disease with superimposed blood loss. B12 and FA no deficient, but with low TSH as well. Continue IV PPI BID. Monitor carefully on anticoagulation. (13) Hypothyroidism: Current visit: No Status: Chronic Low TSH - in setting of acute illness. However, patient with substantial w eight loss over the course of the last 6 months and did present to the hospital with rapid Aflutter. Synthroid dose decreased; Repeat TSH in 4-6 weeks. (14) DVT prophylaxis: Current visit: Yes Status: Acute On therapeutic eliquis (15) Advance directive on file: Current visit: Yes Status: Acute Full Code. Subjective Interval history since last seen: Mr Corley states that the thing that bothers him the most right now is pain in his B shoulders, arms, and hands. He states he gets this pain with RA and that scheduled tylenol helps. He denies dizziness, chest pain, shortness of breath, nausea, vomiting. Overnight, He had several pauses on telemetry, (1.7 sec, 2.0 sec, 2.5 sec); asymptomatic, remains in A flutter. He has no pain in his R foot. Exam Narrative Exam Narrative: General: Very pleasant middle-aged male, NAD HEENT: EOMI, MMM Heart: Irregularly irregular rhythm, quiet NUVIA Lungs: quiet inspiratory/expiratory wheezing B, clears when he clears his throat GI: abdomen is soft, nontender, nondistended; ostomy/cholecystostomy drains Extremities: chronic venous stasis dermatitis, B feet are warm today; ulcer RLE 1st digit Objective Objective Clinical Data: Abnormal lab results 06/13/18 06/13/18 Range/Units 05:48 05:48 Hgb 11.3 L (13.5-17.5) g/dL Hct 34.7 L (40.0-50.0) % MCV 73.2 L (80-95) fL MCH 23.8 L (27.0-33.0) pg RDW 17.5 H (11.8-14.1) % Absolute Lymphocytes 0.98 L (1.2-3.4) k/cumm Chloride 111 H (98-107) mmol/L Carbon Dioxide 20.0 L (21.0-32.0) mmol/L BUN 51 H (7-18) mg/dL Creatinine 2.57 H (0.70-1.30) mg/dL Glucose 107 H (70-100) mg/dL Calcium 8.3 L (8.5-10.1) mg/dL Magnesium 1.7 L (1.8-2.4) mg/dL Vital Signs Temperature 36.5 C 06/13/18 09:28 Temperature Source Tympanic 06/13/18 09:28 Pulse 84 06/13/18 09:28 Pulse 67 06/13/18 08:42 Respiratory Rate 16 06/13/18 09:28 Respiratory Effort Incrsd Work of Breathing 06/13/18 08:30 Respiratory Depth Shallow 06/13/18 08:30 Respiratory Pattern Tachypnea 06/13/18 08:30 Blood Pressure 136/84 06/13/18 09:28 Blood Pressure Mean 105 06/13/18 06:01 Blood Pressure Position Sitting 04/17/19 16:38 Pulse Oximetry 100 06/13/18 09:28 Oxygen Delivery Method Room Air 06/13/18 09:28 Oxygen Flow Rate 0 06/13/18 09:28 Pain Level 0 06/13/18 08:30 Comment 06/08/18 12:59 Intake & Output 06/12/18 06/13/18 06/13/18 23:59 11:59 23:59 Intake Total 750 / 2180 1000 / 1000 Output Total 2100 / 5150 1850 / 1850 Balance -1350 / -2970 -850 / -850 Weight 94.2 kg Intake: IV 30 / 30 Oral 750 / 2180 720 / 720 Injectate 250 / 250 Gallbladder drain 250 / 250 Output: Drainage 100 / 350 Gallbladder drain 100 / 350 Urine 1400 / 2575 1000 / 1000 Stool 600 / 2225 850 / 850 Other: Urine Color Yellow Pale Urine Appearance Clear Clear Urine Odor None Comment pt using urinal. Stool Occult Blood Positive Voiding Methods Urinal Urinal Laboratory Results WBC 8.30 k/cumm (4.4-10.8) 06/13/18 05:48 RBC 4.74 m/cumm (4.50-6.00) 06/13/18 05:48 Hgb 11.3 g/dL (13.5-17.5) L 06/13/18 05:48 Hct 34.7 % (40.0-50.0) L 06/13/18 05:48 MCV 73.2 fL (80-95) L 06/13/18 05:48 MCH 23.8 pg (27.0-33.0) L 06/13/18 05:48 MCHC 32.6 g/dL (32.0-36.0) 06/13/18 05:48 RDW 17.5 % (11.8-14.1) H 06/13/18 05:48 Plt Count 339 x1000/uL (130-400) 06/13/18 05:48 MPV 9.3 fL (8.0-11.0) 06/13/18 05:48 Immature Gran % 1.1 06/13/18 05:48 Neutrophils % 77.8 06/13/18 05:48 Lymphocytes % 11.8 06/13/18 05:48 Monocytes % 7.5 06/13/18 05:48 Eosinophils % 1.6 06/13/18 05:48 Basophils % 0.2 06/13/18 05:48 Metamyelocytes % 0.0 % 06/10/18 06:30 Myelocytes % 0.0 % 06/10/18 06:30 Promyelocytes % 0 % 06/10/18 06:30 Absolute Neutrophils 6.46 k/cumm (1.2-6.7) 06/13/18 05:48 Absolute Lymphocytes 0.98 k/cumm (1.2-3.4) L 06/13/18 05:48 Absolute Monocytes 0.62 k/cumm (0.11-0.7) 06/13/18 05:48 Absolute Eosinophils 0.13 k/cumm (0.0-0.7) 06/13/18 05:48 Absolute Basophils 0.02 k/cumm (0.0-0.2) 06/13/18 05:48 Nucleated RBCs 1 /100WBC 06/08/18 10:00 Differential Comment Manual differential 06/10/18 06:30 Other Cell Type 0 06/10/18 06:30 RBC Morphology See below 06/10/18 06:30 Polychromasia Present 06/10/18 06:30 Hypochromasia 1+ 06/10/18 06:30 Poikilocytosis 2+ 06/10/18 06:30 Basophilic Stippling Present 06/08/18 10:00 Anisocytosis 2+ 06/10/18 06:30 Microcytosis 2+ 06/10/18 06:30 VBG pH 7.21 (7.32-7.43) L 06/09/18 11:38 VBG pCO2 29 mm/Hg (34-47) L 06/09/18 11:38 VBG pO2 108 mm/Hg (28-44) H 06/09/18 11:38 VBG HCO3 12 mmol/L (22-28) L 06/09/18 11:38 VBG Total CO2 11 mmol/L (22-29) L 06/09/18 11:38 VBG O2 Saturation 98 % (70-80) H 06/09/18 11:38 VBG Base Excess mmol/L (-3-3) 06/09/18 11:38 Sodium 140 mmol/L (136-145) 06/13/18 05:48 Potassium 4.5 mmol/L (3.5-5.1) 06/13/18 05:48 Chloride 111 mmol/L (98-107) H 06/13/18 05:48 Carbon Dioxide 20.0 mmol/L (21.0-32.0) L 06/13/18 05:48 Anion Gap 9.0 mmol/L (3-11) 06/13/18 05:48 BUN 51 mg/dL (7-18) H 06/13/18 05:48 Creatinine 2.57 mg/dL (0.70-1.30) H 06/13/18 05:48 Estimated GFR/1.73 m2 25.73 (mL/min/1.73m2) 06/13/18 05:48 Glucose 107 mg/dL (70-100) H 06/13/18 05:48 Lactate 1.1 mmol/l (0.6-1.4) 06/09/18 00:58 Calcium 8.3 mg/dL (8.5-10.1) L 06/13/18 05:48 Magnesium 1.7 mg/dL (1.8-2.4) L 06/13/18 05:48 Iron 52 ug/dL (50-175) 06/11/18 06:15 TIBC 217 ug/dL (250-450) L 06/11/18 06:15 Transferrin % Sat 24 % (20-55) 06/11/18 06:15 Ferritin 140 ng/mL (8-388) 06/11/18 06:15 Total Bilirubin 0.3 mg/dL (0.2-1.0) 06/08/18 10:00 AST 12 U/L (15-37) L 06/08/18 10:00 ALT 15 U/L (12-78) 06/08/18 10:00 Alkaline Phosphatase 310 U/L (46-116) H 06/08/18 10:00 Troponin I 0.05 ng/mL (0.00-0.06) 06/08/18 19:55 Total Protein 7.6 g/dL (6.4-8.2) 06/08/18 10:00 Albumin 2.9 g/dL (3.4-5.0) L 06/08/18 10:00 Lipase 130 U/L (73-393) 06/08/18 10:00 Vitamin B12 1315 pg/mL (193-986) H 06/11/18 06:15 Folate > 20.0 ng/mL (8.6-20.0) H 06/11/18 06:15 TSH 0.26 uIU/mL (0.358-3.74) L 06/11/18 06:15 Urine Color Yellow (Yellow) 06/08/18 13:30 Urine Clarity Cloudy 06/08/18 13:30 Urine pH 5.5 (5-8) 06/08/18 13:30 Ur Specific [place] 1.020 (1.005-1.025) 06/08/18 13:30 Urine Protein 100 mg/dL (Negative) H 06/08/18 13:30 Urine Ketones Negative mg/dL (Negative) 06/08/18 13:30 Urine Blood Small (Negative) H 06/08/18 13:30 Urine Nitrite Negative (Negative) 06/08/18 13:30 Urine Bilirubin Negative (Negative) 06/08/18 13:30 Urine Urobilinogen 0.2 EU/dL (Up TO 0.2) 06/08/18 13:30 Ur Leukocyte Esterase Moderate (Negative) H 06/08/18 13:30 Urine RBC Not Applicable 06/08/18 13:30 Urine WBC >50 HPF (0-5) 06/08/18 13:30 Ur Epithelial Cells Not Applicable 06/08/18 13:30 Urine Crystals Not Applicable 06/08/18 13:30 Urine Bacteria Not Applicable 06/08/18 13:30 Urine Mucus Not Applicable 06/08/18 13:30 Ur Culture Indicated? Yes 06/08/18 13:30 Urine Glucose Negative mg/dL (Negative) 06/08/18 13:30 Vancomycin Trough 15.2 ug/mL (10.0-20.0) 06/09/18 06:15
[2018-06-13] MEDS: Acetaminophen 325 MG TAB 650 MG PO ×2 (12:20→18:58)
--- NOTE | 2018-06-13 12:30 | PT.INTREAT ---
Date of service: 06/13/18 Time of Service: 10:40 PT Notes Inpatient Physical Therapy Treatment Note [facility] Date: 06/13/18 PRECAUTIONS: Fall and standard SUBJECTIVE: Indicated he did not want to get out of bed. Needed to sleep and has a difficult time getting comfortable after getting up. Does not want to sit in recliner. Discussed this with nursing staff and decided to hold on all out of bed activity today. OBJECTIVE: THEREX: Performed ther ex only in bed today due to patient refusing all out of bed activities. Exercises included SAQs, supine hip abd/ add and supine hip flexion for 10 reps x 2 sets. ASSESSMENT: A bit grumpy today and not getting out of bed. Agreed to do some supine exercises, but just wanted to be left alone to sleep. We discussed the importance of getting up and moving, but patient insisted he needed his rest. PLAN: Continue to encourage mobility for improved ADL function. TREATMENT CODE/TIME: 10:40 to 10:55 (15'), TA x 1
[2018-06-13] MEDS: Metoprolol 25 MG TAB 37.5 MG PO ×2 (13:45→22:02)
[2018-06-13] MEDS: Hydrocortisone SOD SUC. 100 MG VIAL 25 MG IVP (19:06)
[2018-06-13] MEDS: risperiDONE 1 MG TAB 3 MG PO (22:01)
[2018-06-13] MEDS: traZODone 50 MG TAB PO (22:02)
[2018-06-14] VITALS (30 sets, daily range): BP systolic 107–137; BP diastolic 58–75; PULSE 39–75; RESP 14–34; TEMP 36.3–37.6; O2SAT 63–97
[2018-06-14] MEDS: Acetaminophen 325 MG TAB 650 MG PO ×5 (00:19→23:27)
[2018-06-14] MEDS: guaiFENesin/CODEINE PHOSPHATE 10 ML CUP PO (04:24)
[2018-06-14] MEDS: Levothyroxine 25 MCG TAB PO (05:59)
[2018-06-14] MEDS: Normal Saline Flush 10 ML SYR IVP ×2 (05:59→20:14)
[2018-06-14] MEDS: Insulin NPH-Human 300 UNITS/3 ML PEN 16 UNIT SC (06:00)
[2018-06-14 06:19] LABS: Abs Immature Grans 0.18 k/cumm (0.0-0.09); Absolute Basophil Count 0.04 k/cumm (0.0-0.2); Absolute Lymphocyte Count 1.31 k/cumm (1.2-3.4); Absolute Monocyte Count 0.67 k/cumm (0.11-0.7); Absolute Neutrophil Count 6.67 k/cumm (1.2-6.7); Basophils % 0.4; Eosinophils % 2.2; HCT 33.6 % (40.0-50.0); HGB 10.8 g/dL (13.5-17.5); Lymphocytes % 14.4; Mean Corp. HGB Concentration 32.1 g/dL (32.0-36.0); Mean Corpuscular Hemoglobin 23.6 pg (27.0-33.0); Mean Corpuscular Volume 73.5 fL (80-95); Mean Platelet Volume 9.5 fL (8.0-11.0); Monocytes % 7.4; Neutrophils % 73.6; Platelet Count 340 x1000/uL (130-400); RBC 4.57 m/cumm (4.50-6.00); RBC Distribution Width 17.7 % (11.8-14.1); White Blood Cell Count 9.07 k/cumm (4.4-10.8)
[2018-06-14 06:34] LABS: Anion Gap 10.2 mmol/L (3-11); BUN 55 mg/dL (7-18); CO2 17.8 mmol/L (21.0-32.0); CREATININE 2.82 mg/dL (0.70-1.30); Calcium 8.6 mg/dL (8.5-10.1); Chloride 109 mmol/L (98-107); Estimated GFR 23.12 (mL/min/1.73m2); Glucose 117 mg/dL (70-100); Magnesium 2.1 mg/dL (1.8-2.4); Sodium 137 mmol/L (136-145)
[2018-06-14] MEDS: Sodium Bicarbonate 650 MG TAB PO ×3 (08:55→20:15)
[2018-06-14] MEDS: Fluconazole 100 MG TAB 200 MG PO (08:56)
[2018-06-14] MEDS: cloNIDine 0.1 MG TAB 0.3 MG PO ×3 (08:56→20:15)
[2018-06-14] MEDS: Terazosin 2 MG CAP 4 MG PO ×2 (08:57→20:15)
[2018-06-14] MEDS: Lactobacillus Acidophilus CAP 1 CAP PO ×3 (08:57→20:15)
[2018-06-14] MEDS: Ferrous Sulfate 325 MG TAB PO ×2 (08:57→20:16)
[2018-06-14] MEDS: Hydrocortisone 10 MG TAB PO ×2 (08:57→20:15)
[2018-06-14] MEDS: hydrALAZINE 10 MG TAB PO ×3 (08:57→20:20)
[2018-06-14] MEDS: Furosemide 40 MG TAB PO (08:59)
[2018-06-14] MEDS: Folic Acid 1 MG TAB PO (08:59)
[2018-06-14] MEDS: Multivitamin w/Minerals TAB 1 TAB PO (09:00)
[2018-06-14] MEDS: Ascorbic Acid 500 MG TAB 250 MG PO ×2 (09:00→20:15)
[2018-06-14] MEDS: Cyanocobalamin 500 MCG TAB 1000 MCG PO (09:00)
[2018-06-14] MEDS: amLODIPine 10 MG TAB PO (09:00)
[2018-06-14] MEDS: Venlafaxine 37.5 MG CAPCR 75 MG PO (09:02)
[2018-06-14] MEDS: Apixaban 5 MG TAB PO (09:02)
[2018-06-14] MEDS: Hydrocortisone SOD SUC. 100 MG VIAL 25 MG IVP (09:07)
[2018-06-14] MEDS: Pantoprazole 40 MG VIAL IVP ×2 (09:08→20:15)
[2018-06-14] MEDS: Insulin Glargine 300 UNITS/3 ML PEN 60 UNITS SC (09:10)
[2018-06-14] MEDS: Magnesium Chloride 64 MG TABCR PO ×2 (09:57→23:27)
[2018-06-14] MEDS: Metoprolol 25 MG TAB 37.5 MG PO (09:58)
--- NOTE | 2018-06-14 11:43 | DI.RAD_ITS ---
SYMPTOM/DIAGNOSIS: COUGH, CONCERN FOR PNEUMONIA VS CHF PORTABLE CHEST: Comparison is made with 08 June 2018. A PICC line is again noted in the SVC. There are leads overlying the chest. The lungs are suboptimally inflated but clear. There is mild elevation of the left diaphragm, unchanged. IMPRESSION: No acute abnormality.
--- NOTE | 2018-06-14 12:15 | DI.VRAD_ITS ---
EXAM: XR Chest, 1 View EXAM DATE/TIME: 06/14/2018 10:33 AM CLINICAL HISTORY: 58 years old, male; Signs and symptoms; Cough TECHNIQUE: Imaging protocol: XR of the chest, 1 view. COMPARISON: SC XR PORTABLE CHEST AP 06/08/2018 8:46 PM FINDINGS: Tubes, catheters and devices: Left PICC remains in place. Lungs: There is a very minimal increased left lower lobe markings. Pleural space: Unremarkable. No pleural effusion. No pneumothorax. Heart/Mediastinum: Calcified mediastinal nodes again seen. Diaphragm: Mild elevation left hemidiaphragm unchanged. Bones/joints: Status post resection of the distal clavicles bilaterally. Degenerative changes right glenohumeral articulation again noted. IMPRESSION: Probable left lower lobe atelectasis. COMMENT: Preliminary interpretation is based on receipt of 1 image(s). A final report will be issued subsequently. Dictated and Authenticated by: Melva Garza MD. Ordering:LACEY Francois MD
--- NOTE | 2018-06-14 12:30 | PGE_ITS ---
Date of Service Date of service: 06/14/18 Time of Service: 12:25 Assessment and Plan (1) Atrial flutter, paroxysmal: Current visit: Yes Status: Acute Converted to NSR, now bradycardic. New diagnosis, likely precipitated by dehydration and potential infection. However, the patient does have a history of untreated JESSICA, which is likely a big contributor. Repeat echo tomorrow to r/o intracardiac thrombus, which would make us switch mode of anticoagulation. Decrease metoprolol, continuing to monitor on tele. H/H is stable on eliquis, which is reassuring, even though there is chronic hemoccult positivity due to Jonathon's. Holding Anticoagulation at this time in anticipation of a surgical intervention by podiatry. Continue close moitoring of H/H. Continue tele. (2) Elevated troponin I level: Current visit: Yes Status: Acute Minimal and equivocal, in setting of acute illness, dehydration, Atrial Flutter with rapid rate, and poor clearance due to JESUS superimposed on CKD. Troponin already normalized. No evidence of NSTEMI. (3) UTI (urinary tract infection): Current visit: Yes Status: Acute Evidence of Pyuria; c&S positive for yeast (not speciated). Continue fluconazole (day 3), per ID recommendation. Await speciation of yeast,fungal cultures. Renal Ultrasound unremarkable. Downing discontinued. Consider potential diagnosis of prostatitis as well if repeat urinalysis does not clear. 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 Off abx, per ID - await podiatry consultation on 06/15/18 for bone cultures. If febrile, would start abx. Obtaining SUSANNA's as the patient does have concomittent PAD. May require a vascular intervention prior to any podiatry intervention - will discuss with Dr Ashford. (S/p debridement on 03/06 with resection of the 5th MPJ - culture of the tissue grew MRSA and Proteus Mirabilis. Osteo was not confirmed by biopsy. He received an approximate 2 week course of antibiotics for this.) Qualifiers: Laterality: left Non-pressure ulcer stage: limited to breakdown of skin Qualified Code(s): E11.621 - Type 2 diabetes mellitus with foot ulcer; L97.521 - Non-pressure chronic ulcer of other part of left foot limited to breakdown of skin (5) Diabetic foot ulcer: Current visit: No Status: Chronic As above (6) Adrenal insufficiency: Current visit: No Status: Chronic Due to long-term steroid use. Was recently switched from prednisone to Hydrocortisone. Continue tapering stress dose steroids. (7) Chronic cholecystitis: Current visit: No Status: Chronic Drain functioning well. Has been deemed a poor surgical candidate. F/u with general surgery as outpatient. (8) Acute on chronic kidney failure: Current visit: Yes Status: Acute Prerenal, Cr a little worse - will continue to trend, but no changes to meds at this time other than metoprolol (it is possible he is hypoperfusing due to bradycardia). Qualifiers: Acute renal failure type: unspecified Chronic kidney disease stage: stage 4 (severe) Qualified Code(s): N17.9 - Acute kidney failure, unspecified; N18.4 - Chronic kidney disease, stage 4 (severe) (9) Hyperkalemia: Current visit: No Status: Resolved Continue renal diet (10) MRSA bacteremia: Current visit: No Status: Resolved Prior to this admission, already treated; Vancomycin completed. Repeat Blood Culture obtained, NGTD (including from PICC). No current evidence for bacteremia otherwise. It is possible that the source is the diabetic ulcer of R foot with osteo. (11) Poorly controlled type 2 diabetes mellitus with circulatory disorder: Current visit: No Status: Chronic Decrease lantus and NPH; continue SSI. Monitor BS. (12) Anemia: Current visit: No Status: Chronic Microcytic, with Heme + stools. Iron studies with low TIBC, but inappropriately normal Ferritin - potential for Anemia of Chronic Disease with superimposed blood loss. B12 and FA no deficient, but with low TSH as well. Continue IV PPI BID. Monitor carefully on anticoagulation. (13) Hypothyroidism: Current visit: No Status: Chronic Low TSH - in setting of acute illness. However, patient with substantial weight loss over the course of the last 6 months and did present to the hospital with rapid Aflutter. Synthroid dose decreased; Repeat TSH in 4-6 weeks. (14) DVT prophylaxis: Current visit: Yes Status: Acute Eliquis on hold starting with this pm's dose in anticipation of possible surgery (15) Advance directive on file: Current visit: Yes Status: Acute Full Code. If needs vascular intervention, would need to be transferred to a tertiary care facility Subjective Interval history since last seen: Converted to NSR yesterday evening. HR's are now in high 40's-50's. Mr Corley feels tired. Mr Corley states that he had a lot of dry cough overnight, but it got a lot better with cough syrup, and he got some sleep. He denies GERD, but does endorse a chronically runny nose. Denies dizziness, chest pain, shortness of breath, nausea, vomiting. We discussed how his poor circulation might be affecting the healing of the foot ulcers. Exam Narrative Exam Narrative: General: Very pleasant middle-aged male, NAD, appears to be at his baseline, in bed, asking appropriate questions, A&Ox3 HEENT: EOMI, MMM, poor dentition Heart: RRR, no m/r/g Lungs: CTAB GI: abdomen is soft, nontender, nondistended; ostomy/cholecystostomy drains Extremities: chronic venous stasis dermatitis, in TEDs Objective Objective Clinical Data: Abnormal lab results 06/14/18 06/14/18 Range/Units 05:52 05:52 Hgb 10.8 L (13.5-17.5) g/dL Hct 33.6 L (40.0-50.0) % MCV 73.5 L (80-95) fL MCH 23.6 L (27.0-33.0) pg RDW 17.7 H (11.8-14.1) % Chloride 109 H (98-107) mmol/L Carbon Dioxide 17.8 L (21.0-32.0) mmol/L BUN 55 H (7-18) mg/dL Creatinine 2.82 H (0.70-1.30) mg/dL Glucose 117 H (70-100) mg/dL Vital Signs Temperature 36.3 C L 06/14/18 10:38 Temperature Source Temporal Artery Scan 06/14/18 10:38 Pulse 61 06/14/18 10:28 Pulse Rhythm Regular 06/14/18 00:05 Pulse 61 06/14/18 10:28 Respiratory Rate 25 H 06/13/18 14:00 Respiratory Effort 06/14/18 11:04 Respiratory Depth Normal 06/14/18 11:04 Respiratory Pattern Normal 06/14/18 11:04 Blood Pressure 107/61 06/14/18 10:28 Blood Pressure Mean 72 06/14/18 10:28 Blood Pressure Position Sitting 06/10/18 16:38 Pulse Oximetry 63 L 06/14/18 09:56 Oxygen Delivery Method Room Air 06/13/18 09:28 Oxygen Flow Rate 0 06/13/18 09:28 Pain Level 2 06/13/18 13:20 Comment 06/08/18 12:59 Intake & Output 06/13/18 06/14/18 06/14/18 23:59 11:59 23:59 Intake Total 650 / 1650 1670 / 1670 Output Total 1750 / 3600 1625 / 1625 Balance -1100 / -1950 45 / 45 Weight 94 kg Intake: IV 50 / 80 30 / 30 Oral 600 / 1320 1340 / 1340 Injectate 300 / 300 Gallbladder drain 300 / 300 Output: Drainage 150 / 150 100 / 100 Gallbladder drain 150 / 150 100 / 100 Urine 1125 / 2125 675 / 675 Stool 475 / 1325 850 / 850 Other: Urine Color Yellow Yellow Urine Appearance Cloudy Clear Urine Odor Normal Comment 5 voids Stool Occult Blood Negative Stool Characteristics Liquid Voiding Methods Urinal Urinal Laboratory Results WBC 9.07 k/cumm (4.4-10.8) 06/14/18 05:52 RBC 4.57 m/cumm (4.50-6.00) 06/14/18 05:52 Hgb 10.8 g/dL (13.5-17.5) L 06/14/18 05:52 Hct 33.6 % (40.0-50.0) L 06/14/18 05:52 MCV 73.5 fL (80-95) L 06/14/18 05:52 MCH 23.6 pg (27.0-33.0) L 06/14/18 05:52 MCHC 32.1 g/dL (32.0-36.0) 06/14/18 05:52 RDW 17.7 % (11.8-14.1) H 06/14/18 05:52 Plt Count 340 x1000/uL (130-400) 06/14/18 05:52 MPV 9.5 fL (8.0-11.0) 06/14/18 05:52 Immature Gran % 2.0 06/14/18 05:52 Neutrophils % 73.6 06/14/18 05:52 Lymphocytes % 14.4 06/14/18 05:52 Monocytes % 7.4 06/14/18 05:52 Eosinophils % 2.2 06/14/18 05:52 Basophils % 0.4 06/14/18 05:52 Metamyelocytes % 0.0 % 06/10/18 06:30 Myelocytes % 0.0 % 06/10/18 06:30 Promyelocytes % 0 % 06/10/18 06:30 Absolute Neutrophils 6.67 k/cumm (1.2-6.7) 06/14/18 05:52 Absolute Lymphocytes 1.31 k/cumm (1.2-3.4) 06/14/18 05:52 Absolute Monocytes 0.67 k/cumm (0.11-0.7) 06/14/18 05:52 Absolute Eosinophils 0.20 k/cumm (0.0-0.7) 06/14/18 05:52 Absolute Basophils 0.04 k/cumm (0.0-0.2) 06/14/18 05:52 Nucleated RBCs 1 /100WBC 06/08/18 10:00 Differential Comment Manual differential 06/10/18 06:30 Other Cell Type 0 06/10/18 06:30 RBC Morphology See below 06/10/18 06:30 Polychromasia Present 06/10/18 06:30 Hypochromasia 1+ 06/10/18 06:30 Poikilocytosis 2+ 06/10/18 06:30 Basophilic Stippling Present 06/08/18 10:00 Anisocytosis 2+ 06/10/18 06:30 Microcytosis 2+ 06/10/18 06:30 VBG pH 7.21 (7.32-7.43) L 06/09/18 11:38 VBG pCO2 29 mm/Hg (34-47) L 06/09/18 11:38 VBG pO2 108 mm/Hg (28-44) H 06/09/18 11:38 VBG HCO3 12 mmol/L (22-28) L 06/09/18 11:38 VBG Total CO2 11 mmol/L (22-29) L 06/09/18 11:38 VBG O2 Saturation 98 % (70-80) H 06/09/18 11:38 VBG Base Excess mmol/L (-3-3) 06/09/18 11:38 Sodium 137 mmol/L (136-145) 06/14/18 05:52 Potassium 5.0 mmol/L (3.5-5.1) 06/14/18 05:52 Chloride 109 mmol/L (98-107) H 06/14/18 05:52 Carbon Dioxide 17.8 mmol/L (21.0-32.0) L 06/14/18 05:52 Anion Gap 10.2 mmol/L (3-11) 06/14/18 05:52 BUN 55 mg/dL (7-18) H 06/14/18 05:52 Creatinine 2.82 mg/dL (0.70-1.30) H 06/14/18 05:52 Estimated GFR/1.73 m2 23.12 (mL/min/1.73m2) 06/14/18 05:52 Glucose 117 mg/dL (70-100) H 06/14/18 05:52 Lactate 1.1 mmol/l (0.6-1.4) 06/09/18 00:58 Calcium 8.6 mg/dL (8.5-10.1) 06/14/18 05:52 Magnesium 2.1 mg/dL (1.8-2.4) 06/14/18 05:52 Iron 52 ug/dL (50-175) 06/11/18 06:15 TIBC 217 ug/dL (250-450) L 06/11/18 06:15 Transferrin % Sat 24 % (20-55) 06/11/18 06:15 Ferritin 140 ng/mL (8-388) 06/11/18 06:15 Total Bilirubin 0.3 mg/dL (0.2-1.0) 06/08/18 10:00 AST 12 U/L (15-37) L 06/08/18 10:00 ALT 15 U/L (12-78) 06/08/18 10:00 Alkaline Phosphatase 310 U/L (46-116) H 06/08/18 10:00 Troponin I 0.05 ng/mL (0.00-0.06) 06/08/18 19:55 Total Protein 7.6 g/dL (6.4-8.2) 06/08/18 10:00 Albumin 2.9 g/dL (3.4-5.0) L 06/08/18 10:00 Lipase 130 U/L (73-393) 06/08/18 10:00 Vitamin B12 1315 pg/mL (193-986) H 06/11/18 06:15 Folate > 20.0 ng/mL (8.6-20.0) H 06/11/18 06:15 TSH 0.26 uIU/mL (0.358-3.74) L 06/11/18 06:15 Urine Color Yellow (Yellow) 06/08/18 13:30 Urine Clarity Cloudy 06/08/18 13:30 Urine pH 5.5 (5-8) 06/08/18 13:30 Ur Specific [place] 1.020 (1.005-1.025) 06/08/18 13:30 Urine Protein 100 mg/dL (Negative) H 06/08/18 13:30 Urine Ketones Negative mg/dL (Negative) 06/08/18 13:30 Urine Blood Small (Negative) H 06/08/18 13:30 Urine Nitrite Negative (Negative) 06/08/18 13:30 Urine Bilirubin Negative (Negative) 06/08/18 13:30 Urine Urobilinogen 0.2 EU/dL (Up TO 0.2) 06/08/18 13:30 Ur Leukocyte Esterase Moderate (Negative) H 06/08/18 13:30 Urine RBC Not Applicable 06/08/18 13:30 Urine WBC >50 HPF (0-5) 06/08/18 13:30 Ur Epithelial Cells Not Applicable 06/08/18 13:30 Urine Crystals Not Applicable 06/08/18 13:30 Urine Bacteria Not Applicable 06/08/18 13:30 Urine Mucus Not Applicable 06/08/18 13:30 Ur Culture Indicated? Yes 06/08/18 13:30 Urine Glucose Negative mg/dL (Negative) 06/08/18 13:30 Vancomycin Trough 15.2 ug/mL (10.0-20.0) 06/09/18 06:15 CXR: probable LLL atelectasis
--- NOTE | 2018-06-14 13:14 | PDOC.CMPRO ---
- If Service Date Differs Date of service: 06/14/18 Time of Service: 13:14 Care Management Progress Note S/O: Brendan is in bed when CM arrives to the room. Brendan is alert and makes good eye contact. He had a chest xray this morning, he is to have an echo early this week and a consult with on Friday. Plan for him to return to the [facility] early this week coming week pending test results. A: 58 year old male admitted to [facility] with abdominal pain and single episode of vomiting. Brendan has chronic disease including adrenal insufficiency on chronic steroids, Chrons disease with ostomy. He also has DM, Chronic kidney disease, neuropathy and decrease mobility. P: Brendan remains on IV steroids for adrenal insufficiency. He will remain on telemetry related to aflutter. He will eventually return to the [facility] when ready per MD. CM will continue to follow and support discharge planning considerations.
--- NOTE | 2018-06-14 13:17 | CMPROGNOTE_ITS ---
- If Service Date Differs Date of service: 06/14/18 Time of Service: 13:14 Care Management Progress Note S/O: Brendan is in bed when CM arrives to the room. Brendan is alert and makes good eye contact. He had a chest xray this morning, he is to have an echo early this week and a consult with on Friday. Plan for him to return to the [facility] early this week coming week pending test results. A: 58 year old male admitted to [facility] with abdominal pain and single episode of vomiting. Brendan has chronic disease including adrenal insufficiency on chronic steroids, Chrons disease with ostomy. He also has DM, Chronic kidney disease, neuropathy and decrease mobility. P: Brendan remains on IV steroids for adrenal insufficiency. He will remain on telemetry related to aflutter. He will eventually return to the [facility] when ready per MD. CM will continue to follow and support discharge planning cons iderations.
[2018-06-14 13:52] LABS: HCO3 (Venous) 15 mmol/L (22-28); O2 Sat (Venous) 76 % (70-80); TCO2 (Venous) 14 mmol/L (22-29); pCO2 (Venous) 41 mm/Hg (34-47); pO2 (Venous) 42 mm/Hg (28-44)
[2018-06-14 13:54] LABS: BE (Venous) -13.8 mmol/L (-3-3); pH (Venous) 7.17 (7.32-7.43)
[2018-06-14 14:10] LABS: Lactate-non-spesis 1.1 mmol/l (0.6-1.4)
--- NOTE | 2018-06-14 14:11 | PGE_ITS ---
Date of Service Date of service: 06/14/18 Time of Service: 14:08 Subjective Interval history since last seen: Patient's VBG came back showing pH of 7.17 (done in routine follow up of prior ABG as well as with metabolic acidosis seen on chemistry this am). Given his hyponatremia and relatively lower blood sugars this am, I feel this is strategic partnership representative of him being acute adrenally insufficient again. pH was 7.21 on admission and he was getting sodium bicarb. The patient is not clinically septic, but something is driving this adrenal insufficiency episode, so at this point, I feel that antibiotics are indicated and the patient cannot wait until his bone bx tomorrow. Will resume vancomycin and zosyn. Treat with IV bicarb and increase hydrocortisone back to stress dose. Transfer back to ICU. Objective Objective Clinical Data: Abnormal lab results 06/14/18 06/14/18 06/14/18 Range/Units 05:52 05:52 13:43 Hgb 10.8 L (13.5-17.5) g/dL Hct 33.6 L (40.0-50.0) % MCV 73.5 L (80-95) fL MCH 23.6 L (27.0-33.0) pg RDW 17.7 H (11.8-14.1) % VBG pH 7.17 L (7.32-7.43) VBG HCO3 15 L (22-28) mmol/L VBG Total CO2 14 L (22-29) mmol/L VBG Base Excess -13.8 L (-3-3) mmol/L Chloride 109 H (98-107) mmol/L Carbon Dioxide 17.8 L (21.0-32.0) mmol/L BUN 55 H (7-18) mg/dL Creatinine 2.82 H (0.70-1.30) mg/dL Glucose 117 H (70-100) mg/dL Vital Signs Temperature 36.3 C L 06/14/18 10:38 Temperature Source Temporal Artery Scan 06/14/18 10:38 Pulse 61 06/14/18 10:28 Pulse Rhythm Regular 06/14/18 00:05 Pulse 61 06/14/18 10:28 Respiratory Rate 25 H 06/13/18 14:00 Respiratory Effort 06/14/18 11:04 Respiratory Depth Normal 06/14/18 11:04 Respiratory Pattern Normal 06/14/18 11:04 Blood Pressure 107/61 06/14/18 10:28 Blood Pressure Mean 72 06/14/18 10:28 Blood Pressure Position Sitting 06/10/18 16:38 Pulse Oximetry 63 L 06/14/18 09:56 Oxygen Delivery Method Room Air 06/13/18 09:28 Oxygen Flow Rate 0 06/13/18 09:28 Pain Level 2 06/13/18 13:20 Comment 06/08/18 12:59 Intake & Output 06/13/18 06/14/18 06/14/18 23:59 11:59 23:59 Intake Total 650 / 1650 1670 / 1670 Output Total 1750 / 3600 1625 / 1625 Balance -1100 / -1950 45 / 45 Weight 94 kg Intake: IV 50 / 80 30 / 30 Oral 600 / 1320 1340 / 1340 Injectate 300 / 300 Gallbladder drain 300 / 300 Output: Drainage 150 / 150 100 / 100 Gallbladder drain 150 / 150 100 / 100 Urine 1125 / 2125 675 / 675 Stool 475 / 1325 850 / 850 Other: Urine Color Yellow Yellow Urine Appearance Cloudy Clear Urine Odor Normal Comment 5 voids Stool Occult Blood Negative Stool Characteristics Liquid Voiding Methods Urinal Urinal Laboratory Results WBC 9.07 k/cumm (4.4-10.8) 06/14/18 05:52 RBC 4.57 m/cumm (4.50-6.00) 06/14/18 05:52 Hgb 10.8 g/dL (13.5-17.5) L 06/14/18 05:52 Hct 33.6 % (40.0-50.0) L 06/14/18 05:52 MCV 73.5 fL (80-95) L 06/14/18 05:52 MCH 23.6 pg (27.0-33.0) L 06/14/18 05:52 MCHC 32.1 g/dL (32.0-36.0) 06/14/18 05:52 RDW 17.7 % (11.8-14.1) H 06/14/18 05:52 Plt Count 340 x1000/uL (130-400) 06/14/18 05:52 MPV 9.5 fL (8.0-11.0) 06/14/18 05:52 Immature Gran % 2.0 06/14/18 05:52 Neutrophils % 73.6 06/14/18 05:52 Lymphocytes % 14.4 06/14/18 05:52 Monocytes % 7.4 06/14/18 05:52 Eosinophils % 2.2 06/14/18 05:52 Basophils % 0.4 06/14/18 05:52 Metamyelocytes % 0.0 % 06/10/18 06:30 Myelocytes % 0.0 % 06/10/18 06:30 Promyelocytes % 0 % 06/10/18 06:30 Absolute Neutrophils 6.67 k/cumm (1.2-6.7) 06/14/18 05:52 Absolute Lymphocytes 1.31 k/cumm (1.2-3.4) 06/14/18 05:52 Absolute Monocytes 0.67 k/cumm (0.11-0.7) 06/14/18 05:52 Absolute Eosinophils 0.20 k/cumm (0.0-0.7) 06/14/18 05:52 Absolute Basophils 0.04 k/cumm (0.0-0.2) 06/14/18 05:52 Nucleated RBCs 1 /100WBC 06/08/18 10:00 Differential Comment Manual differential 06/10/18 06:30 Other Cell Type 0 06/10/18 06:30 RBC Morphology See below 06/10/18 06:30 Polychromasia Present 06/10/18 06:30 Hypochromasia 1+ 06/10/18 06:30 Poikilocytosis 2+ 06/10/18 06:30 Basophilic Stippling Present 06/08/18 10:00 Anisocytosis 2+ 06/10/18 06:30 Microcytosis 2+ 06/10/18 06:30 VBG pH 7.17 (7.32-7.43) L 06/14/18 13:43 VBG pCO2 41 mm/Hg (34-47) 06/14/18 13:43 VBG pO2 42 mm/Hg (28-44) 06/14/18 13:43 VBG HCO3 15 mmol/L (22-28) L 06/14/18 13:43 VBG Total CO2 14 mmol/L (22-29) L 06/14/18 13:43 VBG O2 Saturation 76 % (70-80) 06/14/18 13:43 VBG Base Excess -13.8 mmol/L (-3-3) L 06/14/18 13:43 Sodium 137 mmol/L (136-145) 06/14/18 05:52 Potassium 5.0 mmol/L (3.5-5.1) 06/14/18 05:52 Chloride 109 mmol/L (98-107) H 06/14/18 05:52 Carbon Dioxide 17.8 mmol/L (21.0-32.0) L 06/14/18 05:52 Anion Gap 10.2 mmol/L (3-11) 06/14/18 05:52 BUN 55 mg/dL (7-18) H 06/14/18 05:52 Creatinine 2.82 mg/dL (0.70-1.30) H 06/14/18 05:52 Estimated GFR/1.73 m2 23.12 (mL/min/1.73m2) 06/14/18 05:52 Glucose 117 mg/dL (70-100) H 06/14/18 05:52 Lactate 1.1 mmol/l (0.6-1.4) 06/09/18 00:58 Calcium 8.6 mg/dL (8.5-10.1) 06/14/18 05:52 Magnesium 2.1 mg/dL (1.8-2.4) 06/14/18 05:52 Iron 52 ug/dL (50-175) 06/11/18 06:15 TIBC 217 ug/dL (250-450) L 06/11/18 06:15 Transferrin % Sat 24 % (20-55) 06/11/18 06:15 Ferritin 140 ng/mL (8-388) 06/11/18 06:15 Total Bilirubin 0.3 mg/dL (0.2-1.0) 06/08/18 10:00 AST 12 U/L (15-37) L 06/08/18 10:00 ALT 15 U/L (12-78) 06/08/18 10:00 Alkaline Phosphatase 310 U/L (46-116) H 06/08/18 10:00 Troponin I 0.05 ng/mL (0.00-0.06) 06/08/18 19:55 Total Protein 7.6 g/dL (6.4-8.2) 06/08/18 10:00 Albumin 2.9 g/dL (3.4-5.0) L 06/08/18 10:00 Lipase 130 U/L (73-393) 06/08/18 10:00 Vitamin B12 1315 pg/mL (193-986) H 06/11/18 06:15 Folate > 20.0 ng/mL (8.6-20.0) H 06/11/18 06:15 TSH 0.26 uIU/mL (0.358-3.74) L 06/11/18 06:15 Urine Color Yellow (Yellow) 06/08/18 13:30 Urine Clarity Cloudy 06/08/18 13:30 Urine pH 5.5 (5-8) 06/08/18 13:30 Ur Specific [place] 1.020 (1.005-1.025) 06/08/18 13:30 Urine Protein 100 mg/dL (Negative) H 06/08/18 13:30 Urine Ketones Negative mg/dL (Negative) 06/08/18 13:30 Urine Blood Small (Negative) H 06/08/18 13:30 Urine Nitrite Negative (Negative) 06/08/18 13:30 Urine Bilirubin Negative (Negative) 06/08/18 13:30 Urine Urobilinogen 0.2 EU/dL (Up TO 0.2) 06/08/18 13:30 Ur Leukocyte Esterase Moderate (Negative) H 06/08/18 13:30 Urine RBC Not Applicable 06/08/18 13:30 Urine WBC >50 HPF (0-5) 06/08/18 13:30 Ur Epithelial Cells Not Applicable 06/08/18 13:30 Urine Crystals Not Applicable 06/08/18 13:30 Urine Bacteria Not Applicable 06/08/18 13:30 Urine Mucus Not Applicable 06/08/18 13:30 Ur Culture Indicated? Yes 06/08/18 13:30 Urine Glucose Negative mg/dL (Negative) 06/08/18 13:30 Vancomycin Trough 15.2 ug/mL (10.0-20.0) 06/09/18 06:15
[2018-06-14] MEDS: Hydrocortisone SOD SUC. 100 MG VIAL IVP (15:29)
[2018-06-14] MEDS: SODIUM BICARBONATE 150 MEQ in DEXTROSE 5%-WATER 850 ML IV (15:31)
[2018-06-14] MEDS: Insulin Aspart 300 UNITS/3 ML PEN SC (17:20)
[2018-06-14] MEDS: Insulin NPH-Human 300 UNITS/3 ML PEN 12 UNIT SC (17:21)
[2018-06-14] MEDS: Fluticasone NASAL SPRAY 16 GM BTL NS (17:22)
[2018-06-14] MEDS: Hydrocortisone SOD SUC. 100 MG VIAL 50 MG IVP (20:14)
[2018-06-14] MEDS: PIPERACILLIN/TAZO 3.375 GM in Normal Saline 50 ML IVPB (20:37)
[2018-06-14] MEDS: VANCOMYCIN 1,500 MG in Normal Saline 250 ML 166.667 MG IV (21:44)
[2018-06-14] MEDS: traZODone 50 MG TAB PO (23:27)
[2018-06-14] MEDS: risperiDONE 1 MG TAB 3 MG PO (23:27)
[2018-06-15] VITALS (35 sets, daily range): BP systolic 126–159; BP diastolic 60–87; PULSE 39–91; RESP 13–23; TEMP 36.3–36.6; O2SAT 92–98
[2018-06-15] MEDS: PIPERACILLIN/TAZO 3.375 GM in Normal Saline 50 ML IVPB ×4 (02:51→22:10)
[2018-06-15] MEDS: Hydrocortisone SOD SUC. 100 MG VIAL 50 MG IVP ×4 (02:51→21:55)
[2018-06-15] MEDS: Acetaminophen 325 MG TAB 650 MG PO ×4 (06:41→23:58)
[2018-06-15] MEDS: Levothyroxine 25 MCG TAB PO (06:41)
[2018-06-15 07:57] LABS: Anion Gap 12.1 mmol/L (3-11); BUN 47 mg/dL (7-18); C-Reactive Protein 0.29 mg/dL (0.0-0.3); CO2 16.9 mmol/L (21.0-32.0); CREATININE 2.55 mg/dL (0.70-1.30); Calcium 8.3 mg/dL (8.5-10.1); Chloride 108 mmol/L (98-107); Estimated GFR 25.97 (mL/min/1.73m2); Glucose 238 mg/dL (70-100); Magnesium 1.8 mg/dL (1.8-2.4); Potassium 5.3 mmol/L (3.5-5.1); Sodium 137 mmol/L (136-145)
--- NOTE | 2018-06-15 08:00 | MERGE_ITS ---
*[facility]* *[facility]* [address] [place] [address] Date of study: 06/15/2018 Transthoracic Echocardiography M-mode, complete 2D, complete spectral Doppler, and color Doppler *STUDY CONCLUSIONS* Summary: 1. Left ventricle: The cavity size was normal. Wall thickness was increased in a pattern of moderate LVH. Systolic function was normal. The estimated ejection fraction was 60-65%. Some parameters suggest diastolic dysfunction. There was no evidence of elevated ventricular filling pressure by Doppler parameters. 2. Mitral valve: There was moderate regurgitation. 3. Left atrium: The atrium was mildly dilated. 4. Right ventricle: The cavity size was normal. Wall thickness was normal. Systolic function was normal. 5. Right atrium: The atrium was mildly dilated. 6. Atrial septum: No defect or patent foramen ovale was identified. 7. Tricuspid valve: There was moderate regurgitation. 8. Pulmonary arteries: Pulmonary systolic pressure was in the range of 40mm Hg to 50mm Hg. 9. Inferior vena cava: The vessel was patent and normal in size. The respirophasic diameter changes were in the normal range (greater than or equal to 50%), consistent with normal central venous pressure. *PATIENT PRESENTATION* Height: 185.4cm ((73in) ) S/D Pressure: 154 / 78 Weight: 93.9kg ((206.6lb) ) BSA: 2.21m^2 Test start time: 12:35 PM. Test stop time: 11:30 AM. 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 This study was interpreted by [facility]. Pertinent images and digital data are archived for permanent storage and are available for subsequent review. Comparison was made to the study of 05/05/2018. Study status: Routine. Transthoracic echocardiography. M-mode, complete 2D, complete spectral Doppler, and color Doppler. A Transthoracic Echocardiogram was performed. Scanning was performed from the parasternal, apical, subcostal, and suprasternal notch acoustic windows. Images were obtained using an [id number] cardiac ultrasound machine. Image quality was adequate. Study completion: The patient tolerated the procedure well. History: PMH: New onset aflutter. *CARDIAC ANATOMY* Left ventricle: The cavity size was normal. Wall thickness was increased in a pattern of moderate LVH. Systolic function was normal. The estimated ejection fraction was 60-65%. Some parameters suggest diastolic dysfunction. There was no evidence of elevated ventricular filling pressure by Doppler parameters. Aortic valve: Trileaflet. Doppler: There was no stenosis. There was no regurgitation. VTI ratio of LVOT to aortic valve: 0.68. Valve area (VTI): 2.4cm^2. Indexed valve area (VTI): 1.1cm^2/m^2. Peak velocity ratio of LVOT to aortic valve: 0.76. Valve area (Vmax): 2.7cm^2. Indexed valve area (Vmax): 1.2cm^2/m^2. Mean velocity ratio of LVOT to aortic valve: 0.66. Valve area (Vmean): 2.3cm^2. Indexed valve area (Vmean): 1.1cm^2/m^2. Mean gradient (S): 8mm Hg. Peak gradient (S): 14.4mm Hg. Aorta: Aortic root: The aortic root was normal in size. Ascending aorta: The ascending aorta was mildly dilated. Mitral valve: Doppler: There was no evidence for stenosis. There was moderate regurgitation. Valve area by pressure half-time: 3.2cm^2. Indexed valve area by pressure half-time: 1.4cm^2/m^2. Peak gradient (D): 4.3mm Hg. Left atrium: The atrium was mildly dilated. Atrial septum: No defect or patent foramen ovale was identified. Right ventricle: The cavity size was normal. Wall thickness was normal. Systolic function was normal. Pulmonic valve: Doppler: There was no evidence for stenosis. There was no significant regurgitation. Tricuspid valve: Doppler: There was moderate regurgitation. Pulmonary artery: Poorly visualized. Pulmonary systolic pressure was in the range of 40mm Hg to 50mm Hg. Right atrium: The atrium was mildly dilated. Pericardium: There was no pericardial effusion. Systemic veins: Inferior vena cava: Well visualized. The vessel was patent and normal in size. The respirophasic diameter changes were in the normal range (greater than or equal to 50%), consistent with normal central venous pressure. Baseline ECG: Bradycardia. Measurements Left ventricle Value 05/05/2018 Reference LV ID, ED, PLAX 5.2 cm 5.2 3.5 - 6.0 LV ID, ES, PLAX 3.7 cm 3.2 2.1 - 4.0 LV PW thickness, ED, PLAX 1.3 cm 1.4 LV end-diastolic volume, 178 ml 133 1-p A2C LV ejection fraction, 1-p 62 % 56 A2C LV end-diastolic volume, 149 ml 121 1-p A4C LV ejection fraction, 1-p 63 % 53 A4C LV e', lateral 0.089 m/sec 0.106 LV E/e', lateral 12 9 LV e', medial 0.085 m/sec 0.103 LV E/e', medial 12 9 LV e', average 0.087 m/sec 0.104 LV E/e', average 12 9 Ventricular septum Value 05/05/2018 Reference IVS thickness, ED, PLAX 1.4 cm 1.5 LVOT Value 05/05/2018 Reference LVOT ID, A-P 2.1 cm 2.1 LVOT area 3.5 cm^2 3.5 LVOT peak velocity, S 1.44 m/sec 1.39 LVOT mean velocity, S 0.89 m/sec 0.89 LVOT VTI, S 28.0 cm 26.8 LVOT peak gradient, S 8.3 mm Hg 7.7 LVOT mean gradient, S 3.8 mm Hg 3.7 Stroke volume (SV), LVOT 99 ml 95 DP Stroke index (SV/bsa), 45 ml/m^2 41 LVOT DP Aortic valve Value 05/05/2018 Reference Aortic valve peak 1.9 m/sec 2.2 velocity, S Aortic valve mean 1.35 m/sec 1.61 velocity, S Aortic valve VTI, S 41.0 cm 43.0 Aortic mean gradient, S 8 mm Hg 11.1 Aortic peak gradient, S 14.4 mm Hg 18.9 VTI ratio, LVOT/AV 0.68 0.62 Aortic valve area, VTI 2.4 cm^2 2.2 Velocity ratio, peak, 0.76 0.64 LVOT/AV Aortic valve area, peak 2.7 cm^2 2.3 velocity Velocity ratio, mean, 0.66 0.55 LVOT/AV Aortic valve area, mean 2.3 cm^2 1.9 velocity Aortic valve area/bsa, 1.1 cm^2/m^2 0.8 mean velocity Aorta Value 05/05/2018 Reference Aortic root ID, ED 3.7 cm 3.6 Ascending aorta ID, A-P, S 3.7 cm 3.7 Left atrium Value 05/05/2018 Reference LA ID, A-P, ES 3.6 cm 3.6 LA ID/bsa, A-P 1.6 cm/m^2 1.6 <=2.2 LA area, ES, A4C (H) 27.4 cm^2 28.2 8.8 - 23.4 LA area, ES, A2C 22 cm^2 LA volume/bsa, ES, 1-p A4C 41 ml/m^2 LA volume, ES, 2-p 72 ml LA volume/bsa, ES, 2-p 33 ml/m^2 LA/aortic root ratio 0.99 1.01 Mitral valve Value 05/05/2018 Reference Mitral E-wave peak 1.03 m/sec 0.97 velocity Mitral A-wave peak 0.66 m/sec 0.84 velocity Mitral deceleration time (H) 239 ms 219 150 - 230 Mitral pressure half-time 69 ms 63 Mitral peak gradient, D 4.3 mm Hg 3.7 Mitral E/A ratio, peak 1.57 1.15 Mitral valve area, PHT, DP 3.2 cm^2 3.5 Pulmonary veins Value 05/05/2018 Reference Pulmonary vein peak 0.83 m/sec velocity, S Pulmonary vein peak 0.7 m/sec velocity, D Pulmonary vein velocity 1.2 ratio, peak, S/D Tricuspid valve Value 05/05/2018 Reference Tricuspid regurg peak 3.2 m/sec 3.5 velocity Tricuspid peak RV-RA 41.2 mm Hg 47.9 gradient Right atrium Value 05/05/2018 Reference RA area, ES, A4C (H) 24.4 cm^2 22.8 8.3 - 19.5 Legend: (L) and (H) jamie values outside specified reference range. I have personally reviewed the images and have reviewed and edited the reported findings. Electronically signed by Hemanth Mtz MD 06/15/2018 16:35
--- NOTE | 2018-06-15 08:15 | CMPROGNOTE_ITS ---
Care Management Progress Note S/O: Brendan will have an echo as well as a podiatry consult with on Friday. He was sitting up in his chair, RN Jade supporting him with washing and trimming him up prior to lunch. Plan for him to return to the [facility] early this week coming week pending test results. A: 58 year old male admitted to [facility] with abdominal pain and single episode of vomiting. Brendan has chronic disease including adrenal insufficiency on chronic steroids, Chrons disease with ostomy. He also has DM, Chronic kidney disease, neuropathy and decrease mobility. P: Brendan remains on IV steroids for adrenal insufficiency. He will remain on telemetry related to aflutter. He will eventually return to the [facility] when ready per MD. CM will continue to follow and support discharge planning considerations.
[2018-06-15 08:26] LABS: Abs Immature Grans 0.14 k/cumm (0.0-0.09); Absolute Basophil Count 0.02 k/cumm (0.0-0.2); Absolute Eosinophil Count 0.03 k/cumm (0.0-0.7); Absolute Lymphocyte Count 0.66 k/cumm (1.2-3.4); Absolute Monocyte Count 0.28 k/cumm (0.11-0.7); Absolute Neutrophil Count 6.58 k/cumm (1.2-6.7); Basophils % 0.3; Eosinophils % 0.4; HCT 38.2 % (40.0-50.0); HGB 12.3 g/dL (13.5-17.5); Immature Grans % 1.8; Lymphocytes % 8.6; Mean Corp. HGB Concentration 32.2 g/dL (32.0-36.0); Mean Corpuscular Hemoglobin 23.7 pg (27.0-33.0); Mean Corpuscular Volume 73.5 fL (80-95); Mean Platelet Volume 10.4 fL (8.0-11.0); Monocytes % 3.6; Neutrophils % 85.3; Platelet Count 314 x1000/uL (130-400); RBC Distribution Width 17.7 % (11.8-14.1); White Blood Cell Count 7.71 k/cumm (4.4-10.8)
[2018-06-15 08:43] LABS: HCO3 (Venous) 18 mmol/L (22-28); O2 Sat (Venous) 84 % (70-80); TCO2 (Venous) 17 mmol/L (22-29); pCO2 (Venous) 39 mm/Hg (34-47); pH (Venous) 7.27 (7.32-7.43); pO2 (Venous) 47 mm/Hg (28-44)
[2018-06-15 08:45] LABS: BE (Venous) -9.1 mmol/L (-3-3)
[2018-06-15 08:48] LABS: Anisocytosis 2+; Burr Cells (echinocyte) 2+; Diff Comment Diff Reviewed; Hypochromasia 1+; Microcytosis 2+; Ovalocytes 2+; Poikilocytes 3+; Schistocytes 1+
[2018-06-15] MEDS: Fluticasone NASAL SPRAY 16 GM BTL NS (09:02)
[2018-06-15] MEDS: Pantoprazole 40 MG VIAL IVP ×2 (09:02→21:54)
[2018-06-15] MEDS: Normal Saline Flush 10 ML SYR IVP ×2 (09:05→14:49)
[2018-06-15] MEDS: Insulin Glargine 300 UNITS/3 ML PEN 50 UNITS SC (09:06)
[2018-06-15] MEDS: Insulin Aspart 300 UNITS/3 ML PEN SC ×4 (09:07→21:59)
[2018-06-15] MEDS: Ferrous Sulfate 325 MG TAB PO ×2 (09:17→21:56)
[2018-06-15] MEDS: Insulin NPH-Human 300 UNITS/3 ML PEN 12 UNIT SC ×3 (09:17→21:56)
[2018-06-15] MEDS: Sodium Bicarbonate 650 MG TAB PO ×3 (09:18→21:59)
[2018-06-15] MEDS: Folic Acid 1 MG TAB PO (09:18)
[2018-06-15] MEDS: Furosemide 40 MG TAB PO ×2 (09:18→16:23)
[2018-06-15] MEDS: Terazosin 2 MG CAP 4 MG PO ×2 (09:18→21:55)
[2018-06-15] MEDS: Lactobacillus Acidophilus CAP 1 CAP PO ×3 (09:18→21:55)
[2018-06-15] MEDS: cloNIDine 0.1 MG TAB 0.3 MG PO ×3 (09:19→21:55)
[2018-06-15] MEDS: Metoprolol 25 MG TAB PO (09:19)
[2018-06-15] MEDS: Fluconazole 100 MG TAB 200 MG PO (09:19)
[2018-06-15] MEDS: Multivitamin w/Minerals TAB 1 TAB PO (09:19)
[2018-06-15] MEDS: amLODIPine 10 MG TAB PO (09:19)
[2018-06-15] MEDS: Venlafaxine 37.5 MG CAPCR 75 MG PO (09:20)
[2018-06-15] MEDS: Hydrocortisone 10 MG TAB PO ×2 (09:21→21:56)
[2018-06-15] MEDS: hydrALAZINE 10 MG TAB PO ×3 (09:21→21:56)
[2018-06-15] MEDS: Cyanocobalamin 500 MCG TAB 1000 MCG PO (09:21)
[2018-06-15] MEDS: Ascorbic Acid 500 MG TAB 250 MG PO ×2 (09:22→21:56)
[2018-06-15] MEDS: Magnesium Chloride 64 MG TABCR PO ×2 (10:56→21:55)
--- NOTE | 2018-06-15 15:33 | PT.INTREAT ---
Date of service: 06/15/18 Time of Service: 15:39 PT Notes Inpatient Physical Therapy Treatment Note [facility] Date: 06/15/18 PRECAUTIONS: Fall SUBJECTIVE: Brendan states that his legs are feeling a little sore today, although he is agreeable to participating in PT OBJECTIVE: PAIN: Patient c/o bilateral knee and calf pain with weight bearing BED MOBILITY/TRANSFERS Supine-sit: S in a.m.; I in p.m. Sit-stand: S from elevated bed surface Stand-sit: S Bed-chair: SBA GAIT Assistive Device: FWW Weight bearing: Full Assist: SBA Distance: 5' in a.m.; 30' in p.m. THEREX: Patient completed a LE strengthening program, as per flow sheet. He also performed AA UE exercises as well as functional [id number] exercise with UE support. Static standing 5x20 seconds ASSESSMENT: Patient tolerated morning session with c/o B knee and calf pain with weight bearing, although tolerated weight bearing well in afternoon. He would benefit from continued strengthening, as well as gait training for improved activity tolerance and mobility. PLAN: Continue with PT's POC TREATMENT CODE/TIME: Session 1: 35 minutes; [id number], [id number] Session 2: 30 minutes; [id number], [id number]
--- NOTE | 2018-06-15 15:44 | PTTR_ITS ---
Date of service: 06/15/18 Time of Service: 15:39 PT Notes Inpatient Physical Therapy Treatment Note [facility] Date: 06/15/18 PRECAUTIONS: Fall SUBJECTIVE: Brendan states that his legs are feeling a little sore today, although he is agreeable to participating in PT OBJECTIVE: PAIN: Patient c/o bilateral knee and calf pain with weight bearing BED MOBILITY/TRANSFERS Supine-sit: S in a.m.; I in p.m. Sit-stand: S from elevated bed surface Stand-sit: S Bed-chair: SBA GAIT Assistive Device: FWW Weight bearing: Full Assist: SBA Distance: 5' in a.m.; 30' in p.m. THEREX: Patient completed a LE strengthening program, as per flow sheet. He also performed AA UE exercises as well as functional [id number] exercise with UE support. Static standing 5x20 seconds ASSESSMENT: Patient tolerated morning session with c/o B knee and calf pain with weight bearing, although tolerated weight bearing well in afternoon. He would benefit from continued strengthening, as well as gait training for improved activity tolerance and mobility. PLAN: Continue with PT's POC TREATMENT CODE/TIME: Session 1: 35 minutes; [id number], [id number] Session 2: 30 minutes; [id number], [id number]
[2018-06-15 16:30] LABS: Anion Gap 12.5 mmol/L (3-11); BUN 47 mg/dL (7-18); CO2 17.5 mmol/L (21.0-32.0); Calcium 8.1 mg/dL (8.5-10.1); Chloride 109 mmol/L (98-107); Estimated GFR 23.31 (mL/min/1.73m2); Glucose 231 mg/dL (70-100); Potassium 4.7 mmol/L (3.5-5.1); Sodium 139 mmol/L (136-145)
--- NOTE | 2018-06-15 17:12 | W.PM.PROGNOT ---
Date of Service Date of service: 06/15/18 Time of Service: 12:00 Assessment and Plan (1) Atrial flutter, paroxysmal: Current visit: Yes Status: Acute Converted to NSR, now bradycardic, despite decrease of a dose in metoprolol. New diagnosis, likely precipitated by dehydration and potential infection. However, the patient does have a history of untreated JESSICA, which is likely a big contributor. Await repeat echo to r/o intracardiac thrombus, which would make us switch mode of anticoagulation to coumadin. Decrease metoprolol, continuing to monitor HR. H/H is stable on eliquis, which is reassuring, even though there is chronic hemoccult positivity due to Jonathon's. Holding Anticoagulation at this time in anticipation of a surgical intervention by podiatry. Continue close monitoring of H/H. Continue tele. (2) Elevated troponin I level: Current visit: Yes Status: Acute Minimal and equivocal, in setting of acute illness, dehydration, Atrial Flutter with rapid rate, and poor clearance due to JESUS superimposed on CKD. Troponin already normalized. No evidence of NSTEMI. (3) UTI (urinary tract infection): Current visit: Yes Status: Acute Evidence of Pyuria; c&S positive for yeast (not speciated). Continue fluconazole (day 4), per ID recommendation. Await speciation of yeast, fungal cultures. Renal Ultrasound unremarkable. Downing discontinued. Consider potential diagnosis of prostatitis as well if repeat urinalysis does not clear. 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 Interestingly, his CRP is low this morning. Abx restarted yesterday due to impressive metabolic acidosis and evidence of acute adrenal insufficiency - await podiatry consultation. SUSANNA's ordered. Has good pulses today. (S/p debridement on 03/06 with resection of the 5th MPJ - culture of the tissue grew MRSA and Proteus Mirabilis. Osteo was not confirmed by biopsy. He received an approximate 2 week course of antibiotics for this.) Qualifiers: Laterality: left Non-pressure ulcer stage: limited to breakdown of skin Qualified Code(s): E11.621 - Type 2 diabetes mellitus with foot ulcer; L97.521 - Non-pressure chronic ulcer of other part of left foot limited to breakdown of skin (5) Diabetic foot ulcer: Current visit: No Status: Chronic As above (6) Adrenal insufficiency: Current visit: No Status: Chronic Due to long-term steroid use. Was recently switched from prednisone to Hydrocortisone. Now with severe metabolic acidosis, slowly improving. Stress dose steroids to be kept at the same dose today. Continue empiric abx. Treat underlying infection. (7) Chronic cholecystitis: Current visit: No Status: Chronic Drain functioning well. Has been deemed a poor surgical candidate. F/u with general surgery as outpatient. (8) Acute on chronic kidney failure: Current visit: Yes Status: Acute Prerenal, Cr a little worse this afternoon post more lasix - will continue to trend, but no changes to meds at this time other than metoprolol (it is possible he is hypoperfusing due to bradycardia). Qualifiers: Acute renal failure type: unspecified Chronic kidney disease stage: stage 4 (severe) Qualified Code(s): N17.9 - Acute kidney failure, unspecified; N18.4 - Chronic kidney disease, stage 4 (severe) (9) Hyperkalemia: Current visit: No Status: Resolved Continue renal diet. Chemistry from 4 pm shows a better potassium. (10) MRSA bacteremia: Current visit: No Status: Resolved Prior to this admission, already treated; Vancomycin completed. Repeat Blood Culture obtained, NGTD (including from PICC). Abx resumed in light of above (11) Poorly controlled type 2 diabetes mellitus with circulatory disorder: Current visit: No Status: Chronic Increase insulins now that the patient is back on stress dose steroids. (12) Anemia: Current visit: No Status: Chronic Microcytic, with Heme + stools. Iron studies with low TIBC, but inappropriately normal Ferritin - potential for Anemia of Chronic Disease with superimposed blood loss. B12 and FA no deficient, but with low TSH as well. H/H remains stable. Continue IV PPI BID. Monitor carefully on anticoagulation. (13) Hypothyroidism: Current visit: No Status: Chronic Low TSH - in setting of acute illness. However, patient with substantial weight loss over the course of the last 6 months and did present to the hospital with rapid Aflutter. Synthroid dose decreased; Repeat TSH in 4-6 weeks. (14) DVT prophylaxis: Current visit: Yes Status: Acute Eliquis on hold starting with this pm's dose in anticipation of possible surgery (15) Advance directive on file: Current visit: Yes Status: Acute Full Code. If needs vascular intervention, would need to be transferred to a tertiary care facility (16) Metabolic acidosis: Current visit: Yes Status: Acute s/p bicarb gtt. Usually happens in setting of acute adrenal insufficiency with this patient. Continue stress dose steroids and monitoring in ICU. Recheck VBG in am Subjective Interval history since last seen: Mr Jory's main complaints today is his RUE pain and his chronic nonproductive cough. Otherwise, he states he is feeling pretty good. He denies dizziness, chest pain, shortness of breath, nausea, vomiting. His HR has been dipping into 40's even on the decreased dose of metoprolol. Exam Narrative Exam Narrative: General: Very pleasant middle-aged male, NAD, looks better, A&Ox3 HEENT: EOMI, MMM, poor dentition Heart: RRR, no m/r/g Lungs: CTAB GI: abdomen is soft, nontender, nondistended; ostomy/cholecystostomy drains Extremities: chronic venous stasis dermatitis, R great toe wound open to air; +2 pedal pulses B Objective Objective Clinical Data: Abnormal lab results 06/15/18 06/15/18 06/15/18 Range/Units 06:45 07:12 08:35 Hgb 12.3 L (13.5-17.5) g/dL Hct 38.2 L (40.0-50.0) % MCV 73.5 L (80-95) fL MCH 23.7 L (27.0-33.0) pg RDW 17.7 H (11.8-14.1) % Absolute Lymphocytes 0.66 L (1.2-3.4) k/cumm VBG pH 7.27 L (7.32-7.43) VBG pO2 47 H (28-44) mm/Hg VBG HCO3 18 L (22-28) mmol/L VBG Total CO2 17 L (22-29) mmol/L VBG O2 Saturation 84 H (70-80) % VBG Base Excess -9.1 L (-3-3) mmol/L Potassium 5.3 H (3.5-5.1) mmol/L Chloride 108 H (98-107) mmol/L Carbon Dioxide 16.9 L (21.0-32.0) mmol/L Anion Gap 12.1 H (3-11) mmol/L BUN 47 H (7-18) mg/dL Creatinine 2.55 H (0.70-1.30) mg/dL Glucose 238 H D (70-100) mg/dL Calcium 8.3 L (8.5-10.1) mg/dL 06/15/18 Range/Units 16:18 Hgb (13.5-17.5) g/dL Hct (40.0-50.0) % MCV (80-95) fL MCH (27.0-33.0) pg RDW (11.8-14.1) % Absolute Lymphocytes (1.2-3.4) k/cumm VBG pH (7.32-7.43) VBG pO2 (28-44) mm/Hg VBG HCO3 (22-28) mmol/L VBG Total CO2 (22-29) mmol/L VBG O2 Saturation (70-80) % VBG Base Excess (-3-3) mmol/L Potassium (3.5-5.1) mmol/L Chloride 109 H (98-107) mmol/L Carbon Dioxide 17.5 L (21.0-32.0) mmol/L Anion Gap 12.5 H (3-11) mmol/L BUN 47 H (7-18) mg/dL Creatinine 2.80 H (0.70-1.30) mg/dL Glucose 231 H (70-100) mg/dL Calcium 8.1 L (8.5-10.1) mg/dL Vital Signs Temperature 36.6 C 06/15/18 16:01 Temperature Source Temporal Artery Scan 06/15/18 16:01 Pulse 53 L 06/15/18 16:31 Pulse Rhythm Regular 06/14/18 00:05 Pulse 53 L 06/15/18 16:31 Respiratory Rate 20 06/15/18 16:31 Respiratory Effort Non-Labored 06/15/18 16:01 Respiratory Depth Normal 06/15/18 16:01 Respiratory Pattern Normal 06/15/18 16:01 Blood Pressure 143/65 H 06/15/18 16:31 Blood Pressure Mean 85 06/15/18 16:31 Blood Pressure Position Sitting 06/15/18 16:01 Pulse Oximetry 98 06/15/18 16:31 Oxygen Delivery Method Room Air 06/15/18 16:01 Oxygen Flow Rate 0 06/15/18 16:01 Pain Level 2 06/15/18 13:40 Comment 06/08/18 12:59 Intake & Output 06/14/18 06/15/18 06/15/18 23:59 11:59 23:59 Intake Total 2870 / 4540 1640 / 2430 790 / 2430 Output Total 1775 / 3400 1400 / 2635 1235 / 2635 Balance 1095 / 1140 240 / -205 -445 / -205 Weight 100.5 kg Intake: IV 1300 / 1330 350 / 390 40 / 390 Oral 1420 / 2760 990 / 1740 750 / 1740 Injectate 150 / 450 300 / 300 Gallbladder drain 150 / 450 300 / 300 Output: Urine 1000 / 1675 700 / 1300 600 / 1300 Stool 775 / 1625 700 / 1335 635 / 1335 Other: Urine Color Yellow Yellow Yellow Urine Appearance Clear Clear Clear Urine Odor Normal Normal Normal Comment Pt voiding to urinal. Pt voiding to urinal. Stool Characteristics Soft Voiding Methods Urinal Urinal Urinal Laboratory Results WBC 7.71 k/cumm (4.4-10.8) 06/15/18 07:12 RBC 5.20 m/cumm (4.50-6.00) 06/15/18 07:12 Hgb 12.3 g/dL (13.5-17.5) L 06/15/18 07:12 Hct 38.2 % (40.0-50.0) L 06/15/18 07:12 MCV 73.5 fL (80-95) L 06/15/18 07:12 MCH 23.7 pg (27.0-33.0) L 06/15/18 07:12 MCHC 32.2 g/dL (32.0-36.0) 06/15/18 07:12 RDW 17.7 % (11.8-14.1) H 06/15/18 07:12 Plt Count 314 x1000/uL (130-400) 06/15/18 07:12 MPV 10.4 fL (8.0-11.0) 06/15/18 07:12 Immature Gran % 1.8 06/15/18 07:12 Neutrophils % 85.3 06/15/18 07:12 Band Neutrophils % Cancelled 06/15/18 06:45 Lymphocytes % 8.6 06/15/18 07:12 Atypical Lymphs % Cancelled 06/15/18 06:45 Monocytes % 3.6 06/15/18 07:12 Eosinophils % 0.4 06/15/18 07:12 Basophils % 0.3 06/15/18 07:12 Metamyelocytes % 0.0 % 06/10/18 06:30 Myelocytes % 0.0 % 06/10/18 06:30 Promyelocytes % 0 % 06/10/18 06:30 Absolute Neutrophils 6.58 k/cumm (1.2-6.7) 06/15/18 07:12 Absolute Lymphocytes 0.66 k/cumm (1.2-3.4) L 06/15/18 07:12 Absolute Monocytes 0.28 k/cumm (0.11-0.7) 06/15/18 07:12 Absolute Eosinophils 0.03 k/cumm (0.0-0.7) 06/15/18 07:12 Absolute Basophils 0.02 k/cumm (0.0-0.2) 06/15/18 07:12 Nucleated RBCs 1 /100WBC 06/08/18 10:00 Differential Comment Diff reviewed 06/15/18 07:12 Other Cell Type 0 06/10/18 06:30 RBC Morphology See below 06/15/18 07:12 Polychromasia Present 06/10/18 06:30 Hypochromasia 1+ 06/15/18 07:12 Poikilocytosis 3+ 06/15/18 07:12 Basophilic Stippling Present 06/08/18 10:00 Anisocytosis 2+ 06/15/18 07:12 Microcytosis 2+ 06/15/18 07:12 Macrocytosis Cancelled 06/15/18 06:45 Spherocytes Cancelled 06/15/18 06:45 Target Cells Cancelled 06/15/18 06:45 Tear Drop Cells Cancelled 06/15/18 06:45 Ovalocytes 2+ 06/15/18 07:12 Stomatocytes Cancelled 06/15/18 06:45 [place] Bodies Cancelled 06/15/18 06:45 [place] Cells 2+ 06/15/18 07:12 Acanthocytes (Spur) Cancelled 06/15/18 06:45 Schistocytes 1+ 06/15/18 07:12 VBG pH 7.27 (7.32-7.43) L 06/15/18 08:35 VBG pCO2 39 mm/Hg (34-47) 06/15/18 08:35 VBG pO2 47 mm/Hg (28-44) H 06/15/18 08:35 VBG HCO3 18 mmol/L (22-28) L 06/15/18 08:35 VBG Total CO2 17 mmol/L (22-29) L 06/15/18 08:35 VBG O2 Saturation 84 % (70-80) H 06/15/18 08:35 VBG Base Excess -9.1 mmol/L (-3-3) L 06/15/18 08:35 Sodium 139 mmol/L (136-145) 06/15/18 16:18 Potassium 4.7 mmol/L (3.5-5.1) 06/15/18 16:18 Chloride 109 mmol/L (98-107) H 06/15/18 16:18 Carbon Dioxide 17.5 mmol/L (21.0-32.0) L 06/15/18 16:18 Anion Gap 12.5 mmol/L (3-11) H 06/15/18 16:18 BUN 47 mg/dL (7-18) H 06/15/18 16:18 Creatinine 2.80 mg/dL (0.70-1.30) H 06/15/18 16:18 Estimated GFR/1.73 m2 23.31 (mL/min/1.73m2) 06/15/18 16:18 Glucose 231 mg/dL (70-100) H 06/15/18 16:18 Lactate 1.1 mmol/l (0.6-1.4) 06/14/18 13:43 Calcium 8.1 mg/dL (8.5-10.1) L 06/15/18 16:18 Magnesium 1.8 mg/dL (1.8-2.4) 06/15/18 06:45 Iron 52 ug/dL (50-175) 06/11/18 06:15 TIBC 217 ug/dL (250-450) L 06/11/18 06:15 Transferrin % Sat 24 % (20-55) 06/11/18 06:15 Ferritin 140 ng/mL (8-388) 06/11/18 06:15 Total Bilirubin 0.3 mg/dL (0.2-1.0) 06/08/18 10:00 AST 12 U/L (15-37) L 06/08/18 10:00 ALT 15 U/L (12-78) 06/08/18 10:00 Alkaline Phosphatase 310 U/L (46-116) H 06/08/18 10:00 Troponin I 0.05 ng/mL (0.00-0.06) 06/08/18 19:55 C-Reactive Protein 0.29 mg/dL (0.0-0.3) 06/15/18 06:45 Total Protein 7.6 g/dL (6.4-8.2) 06/08/18 10:00 Albumin 2.9 g/dL (3.4-5.0) L 06/08/18 10:00 Lipase 130 U/L (73-393) 06/08/18 10:00 Vitamin B12 1315 pg/mL (193-986) H 06/11/18 06:15 Folate > 20.0 ng/mL (8.6-20.0) H 06/11/18 06:15 TSH 0.26 uIU/mL (0.358-3.74) L 06/11/18 06:15 Urine Color Yellow (Yellow) 06/08/18 13:30 Urine Clarity Cloudy 06/08/18 13:30 Urine pH 5.5 (5-8) 06/08/18 13:30 Ur Specific [place] 1.020 (1.005-1.025) 06/08/18 13:30 Urine Protein 100 mg/dL (Negative) H 06/08/18 13:30 Urine Ketones Negative mg/dL (Negative) 06/08/18 13:30 Urine Blood Small (Negative) H 06/08/18 13:30 Urine Nitrite Negative (Negative) 06/08/18 13:30 Urine Bilirubin Negative (Negative) 06/08/18 13:30 Urine Urobilinogen 0.2 EU/dL (Up TO 0.2) 06/08/18 13:30 Ur Leukocyte Esterase Moderate (Negative) H 06/08/18 13:30 Urine RBC Not Applicable 06/08/18 13:30 Urine WBC >50 HPF (0-5) 06/08/18 13:30 Ur Epithelial Cells Not Applicable 06/08/18 13:30 Urine Crystals Not Applicable 06/08/18 13:30 Urine Bacteria Not Applicable 06/08/18 13:30 Urine Mucus Not Applicable 06/08/18 13:30 Ur Culture Indicated? Yes 06/08/18 13:30 Urine Glucose Negative mg/dL (Negative) 06/08/18 13:30 Vancomycin Trough 15.2 ug/mL (10.0-20.0) 06/09/18 06:15
--- NOTE | 2018-06-15 19:44 | NUR.NOTE ---
Nursing Note: SUSANNA = left=1.38, right=1.49, brachial pressure- 122/71.
--- NOTE | 2018-06-15 19:47 | W.PODCONSULT ---
Date of service: 06/15/18 Time of Service: 19:47 History of Present Illness Chief Complaint: concern for osteomyelitis secondary to multiple ulcerations Narrative: Ad is a 58-year-old male with multiple comorbidities who presented to the emergency department from the [facility] where he resides for nausea vomiting and generalized deconditioning. He is seen in the ICU and I have been asked to evaluate the status of multiple foot wounds. Brendan is seen at bedside, he is awake and alert and in his usual state of health. His admission H&P from Dr. Fisher and his most recent note from Dr. Canela has been reviewed. His vitals showed BP 126/60 pulse 60 respiration 19 temp 36.6 He did have a [address] study of his lower extremities performed, Dr. Olivarez focused on the right fifth MPJ region feeling it could be in the correct setting a sign of osteomyelitis. There were no other significant findings noted on the report. Physical exam: Peripheral pulses are poorly palpable at the ankle. His left lower extremity is warm to the touch the right lower extremity feels cool. Minimal peripheral edema is noted bilaterally. Calves are soft to palpation. Pedal hair is absent. Venous stasis changes are noted with hemosiderin changes seen on both lower extremities. ABIs were drawn today results of the right side 1.49, left side 1.38. ABIs falsely elevated likely secondary to noncompressible vessels. Muscle groups are 5 out of 5 bilaterally although deconditioned. He has been up and ambulating from his room to the doorway and back to his room several times a day. He suffers from rheumatoid arthritis and has multiple joint pain in his knees hips which he does indicate has been feeling better since he has been here at the hospital then while he is at the [facility]. Skeletal exam reveals chronic severe contractures of both great toes at the IPJ. In a flexion lateral deviation position with chronic wounds noted affecting the medial wall and plantar aspect of the IPJ. Both great toes are affected. The base of these wounds are dry and crusted without erythema or cellulitis. They are partial thickness without sinus tracking. The right fifth toe and fifth ray appear completely benign. The surgical incisions are noted but they are fully healed and nontender there is no sinus tracking, no wound dehiscence, no erythema, no signs of infection at all. He has a new wound underneath the left third metatarsal head which is partial thickness. The surrounding skin of the wound appeared grayish and devitalized and initially was very concerning but there was no sinus tracking it did not probe to bone nor did it go deeper than partial thickness. Neurologically he is densely neuropathic both lower extremities. 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 Good bleeding was appreciated on the periphery and scant bleeding at the base of the wounds. Recommend we dress the wounds initially with collagenase Santyl gauze dressings to clean them up a little more and get them to at least a granular base. When ON ambulates he must have his diabetic shoes on to prevent further degradation of his wounds. I am recommending vascular consultation at [facility]. I did discuss this case with Dr. Canela. 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) Palliative care encounter (Acute) Pulmonary hypertension (Chronic) Toxic metabolic encephalopathy (Resolved) Advance directive on file (Chronic) Chronic cholecystitis (Chronic) 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 2 diabetes mellitus (Ruled-out) HCAP (healthcare-associated pneumonia) (Resolved) MRSA bacteremia (Resolved) Ambulatory dysfunction (Chronic) Diabetic foot ulcer (Chronic) Poorly controlled type 2 diabetes mellitus with circulatory disorder (Chronic) Adrenal insufficiency (Chronic) CKD (chronic kidney disease) (Chronic) Cardiopulmonary arrest with successful resuscitation (Resolved) Heme positive stool (Chronic) Sepsis (Resolved) Pedal edema (Chronic) Chronic insomnia (Chronic) Hypertension (Chronic) Chronic pain (Chronic) Hypothyroidism (Chronic) Obesity (Chronic) Back pain (Chronic 06/21/13) Inability to get out of bed (Chronic 06/21/13) Poor self care (Chronic 06/21/13) Chronic bipolar disorder (Chronic) CAD (coronary artery disease) (Chronic) Dyslipidemia (Chronic) Rheumatoid arthritis (Chronic) Osteoarthritis of both knees (Chronic) Cholelithiasis (Chronic) Impaired mobility and ADLs (Chronic) Hemorrhagic cystitis (Inactive) Anemia (Chronic) Chronic anxiety (Chronic) Ulcerative colitis (Chronic) Surgical History History of insertion of T-tube into biliary tract (Chronic) S/P colectomy (Chronic) Arthroplasty of knee (Resolved 03/18/12) Fracture, Open Treatment (Resolved) Social History Smoking/Tobacco Use Status: Never Drug use: Occasionally Housing: care home Do you feel safe in your relationship?: Yes Results Last Vital Signs Temp 36.6 C 06/15/18 16:01 Pulse 60 06/15/18 19:28 Resp 19 06/15/18 19:28 BP 126/60 06/15/18 19:28 Pulse Ox 98 06/15/18 16:31 Labs : 06/15/18 07:12 06/15/18 16:18 Laboratory Results - last 24 hr 06/15/18 06/15/18 06/15/18 06:45 06:45 07:12 WBC Cancelled 7.71 RBC Cancelled 5.20 Hgb Cancelled 12.3 L Hct Cancelled 38.2 L MCV Cancelled 73.5 L MCH Cancelled 23.7 L MCHC Cancelled 32.2 RDW Cancelled 17.7 H Plt Count Cancelled 314 MPV Cancelled 10.4 Immature Gran % Cancelled 1.8 Neutrophils % Cancelled 85.3 Band Neutrophils % Cancelled Lymphocytes % Cancelled 8.6 Atypical Lymphs % Cancelled Monocytes % Cancelled 3.6 Eosinophils % Cancelled 0.4 Basophils % Cancelled 0.3 Metamyelocytes % Cancelled Myelocytes % Cancelled Promyelocytes % Cancelled Absolute Neutrophils Cancelled 6.58 Absolute Lymphocytes Cancelled 0.66 L Absolute Monocytes Cancelled 0.28 Absolute Eosinophils Cancelled 0.03 Absolute Basophils Cancelled 0.02 Nucleated RBCs Cancelled Differential Comment Cancelled Diff reviewed Other Cell Type Cancelled RBC Morphology Cancelled See below Polychromasia Cancelled Hypochromasia Cancelled 1+ Poikilocytosis Cancelled 3+ Basophilic Stippling Cancelled Anisocytosis Cancelled 2+ Microcytosis Cancelled 2+ Macrocytosis Cancelled Spherocytes Cancelled Target Cells Cancelled Tear Drop Cells Cancelled Ovalocytes Cancelled 2+ Stomatocytes Cancelled [place] Bodies Cancelled Sathya Cells Cancelled 2+ Acanthocytes (Spur) Cancelled Schistocytes Cancelled 1+ VBG pH VBG pCO2 VBG pO2 VBG HCO3 VBG Total CO2 VBG O2 Saturation VBG Base Excess Sodium 137 Potassium 5.3 H Chloride 108 H Carbon Dioxide 16.9 L Anion Gap 12.1 H BUN 47 H Creatinine 2.55 H Estimated GFR/1.73 m2 25.97 Glucose 238 H D Calcium 8.3 L Magnesium 1.8 C-Reactive Protein 0.29 06/15/18 06/15/18 08:35 16:18 WBC RBC Hgb Hct MCV MCH MCHC RDW Plt Count MPV Immature Gran % Neutrophils % Band Neutrophils % Lymphocytes % Atypical Lymphs % Monocytes % Eosinophils % Basophils % Metamyelocytes % Myelocytes % Promyelocytes % Absolute Neutrophils Absolute Lymphocytes Absolute Monocytes Absolute Eosinophils Absolute Basophils Nucleated RBCs Differential Comment Other Cell Type RBC Morphology Polychromasia Hypochromasia Poikilocytosis Basophilic Stippling Anisocytosis Microcytosis Macrocytosis Spherocytes Target Cells Tear Drop Cells Ovalocytes Stomatocytes [place] Bodies Sathya Cells Acanthocytes (Spur) Schistocytes VBG pH 7.27 L VBG pCO2 39 VBG pO2 47 H VBG HCO3 18 L VBG Total CO2 17 L VBG O2 Saturation 84 H VBG Base Excess -9.1 L Sodium 139 Potassium 4.7 Chloride 109 H Carbon Dioxide 17.5 L Anion Gap 12.5 H BUN 47 H Creatinine 2.80 H Estimated GFR/1.73 m2 23.31 Glucose 231 H Calcium 8.1 L Magnesium C-Reactive Protein
--- NOTE | 2018-06-15 20:00 | POCOE_ITS ---
Date of service: 06/15/18 Time of Service: 19:47 History of Present Illness Chief Complaint: concern for osteomyelitis secondary to multiple ulcerations Narrative: Ad is a 58-year-old male with multiple comorbidities who presented to the emergency department from the [facility] where he resides for nausea vomiting and generalized deconditioning. He is seen in the ICU and I have been asked to evaluate the status of multiple foot wounds. Brendan is seen at bedside, he is awake and alert and in his usual state of health. His admission H&P from Dr. Fisher and his most recent note from Dr. Canela has been reviewed. His vitals showed BP 126/60 pulse 60 respiration 19 temp 36.6 He did have a CT study of his lower extremities performed, Dr. Olivarez focused on the right fifth MPJ region feeling it could be in the correct setting a sign of osteomyelitis. There were no other significant findings noted on the report. Physical exam: Peripheral pulses are poorly palpable at the ankle. His left lower extremity is warm to the touch the right lower extremity feels cool. Minimal peripheral edema is noted bilaterally. Calves are soft to palpation. Pedal hair is absent. Venous stasis changes are noted with hemosiderin changes seen on both lower extremities. ABIs were drawn today results of the right side 1.49, left side 1.38. ABIs falsely elevated likely secondary to noncompressible vessels. Muscle groups are 5 out of 5 bilaterally although deconditioned. He has been up and ambulating from his room to the doorway and back to his room several times a day. He suffers from rheumatoid arthritis and has multiple joint pain in his knees hips which he does indicate has been feeling better since he has been here at the hospital then while he is at the [facility]. Skeletal exam reveals chronic severe contractures of both great toes at the IPJ. In a flexion lateral deviation position with chronic wounds noted affecting the medial wall and plantar aspect of the IPJ. Both great toes are affected. The base of these wounds are dry and crusted without erythema or cellulitis. They are partial thickness without sinus tracking. The right fifth toe and fifth ray appear completely benign. The surgical incisions are noted but they are fully healed and nontender there is no sinus tracking, no wound dehiscence, no erythema, no signs of infection at all. He has a new wound underneath the left third metatarsal head which is partial thickness. The surrounding skin of the wound appeared grayish and devitalized and initially was very concerning but there was no sinus tracking it did not probe to bone nor did it go deeper than partial thickness. Neurologically he is densely neuropathic both lower extremities. 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 Good bleeding was appreciated on the periphery and scant bleeding at the base of the wounds. Recommend we dress the wounds initially with collagenase Santyl gauze dressings to clean them up a little more and get them to at least a granular base. When ON ambulates he must have his diabetic shoes on to prevent further degradation of his wounds. I am recommending vascular consultation at [facility]. I did discuss this case with Dr. Canela. 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) Palliative care encounter (Acute) Pulmonary hypertension (Chronic) Toxic metabolic encephalopathy (Resolved) Advance directive on file (Chronic) Chronic cholecystitis (Chronic) 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 2 diabetes mellitus (Ruled-out) HCAP (healthcare-associated pneumonia) (Resolved) MRSA bacteremia (Resolved) Ambulatory dysfunction (Chronic) Diabetic foot ulcer (Chronic) Poorly controlled type 2 diabetes mellitus with circulatory disorder (Chronic) Adrenal insufficiency (Chronic) CKD (chronic kidney disease) (Chronic) Cardiopulmonary arrest with successful resuscitation (Resolved) Heme positive stool (Chronic) Sepsis (Resolved) Pedal edema (Chronic) Chronic insomnia (Chronic) Hypertension (Chronic) Chronic pain (Chronic) Hypothyroidism (Chronic) Obesity (Chronic) Back pain (Chronic 06/21/13) Inability to get out of bed (Chronic 06/21/13) Poor self care (Chronic 06/21/13) Chronic bipolar disorder (Chronic) CAD (coronary artery disease) (Chronic) Dyslipidemia (Chronic) Rheumatoid arthritis (Chronic) Osteoarthritis of both knees (Chronic) Cholelithiasis (Chronic) Impaired mobility and ADLs (Chronic) Hemorrhagic cystitis (Inactive) Anemia (Chronic) Chronic anxiety (Chronic) Ulcerative colitis (Chronic) Surgical History History of insertion of T-tube into biliary tract (Chronic) S/P colectomy (Chronic) Arthroplasty of knee (Resolved 03/18/12) Fracture, Open Treatment (Resolved) Social History Smoking/Tobacco Use Status: Never Drug use: Occasionally Housing[facility] Do you feel safe in your relationship?: Yes Results Last Vital Signs Temp 36.6 C 06/15/18 16:01 Pulse 60 06/15/18 19:28 Resp 19 06/15/18 19:28 BP 126/60 06/15/18 19:28 Pulse Ox 98 06/15/18 16:31 Labs : 06/15/18 07:12 06/15/18 16:18 Laboratory Results - last 24 hr 06/15/18 06/15/18 06/15/18 06:45 06:45 07:12 WBC Cancelled 7.71 RBC Cancelled 5.20 Hgb Cancelled 12.3 L Hct Cancelled 38.2 L MCV Cancelled 73.5 L MCH Cancelled 23.7 L MCHC Cancelled 32.2 RDW Cancelled 17.7 H Plt Count Cancelled 314 MPV Cancelled 10.4 Immature Gran % Cancelled 1.8 Neutrophils % Cancelled 85.3 Band Neutrophils % Cancelled Lymphocytes % Cancelled 8.6 Atypical Lymphs % Cancelled Monocytes % Cancelled 3.6 Eosinophils % Cancelled 0.4 Basophils % Cancelled 0.3 Metamyelocytes % Cancelled Myelocytes % Cancelled Promyelocytes % Cancelled Absolute Neutrophils Cancelled 6.58 Absolute Lymphocytes Cancelled 0.66 L Absolute Monocytes Cancelled 0.28 Absolute Eosinophils Cancelled 0.03 Absolute Basophils Cancelled 0.02 Nucleated RBCs Cancelled Differential Comment Cancelled Diff reviewed Other Cell Type Cancelled RBC Morphology Cancelled See below Polychromasia Cancelled Hypochromasia Cancelled 1+ Poikilocytosis Cancelled 3+ Basophilic Stippling Cancelled Anisocytosis Cancelled 2+ Microcytosis Cancelled 2+ Macrocytosis Cancelled Spherocytes Cancelled Target Cells Cancelled Tear Drop Cells Cancelled Ovalocytes Cancelled 2+ Stomatocytes Cancelled [place] Bodies Cancelled Sathya Cells Cancelled 2+ Acanthocytes (Spur) Cancelled Schistocytes Cancelled 1+ VBG pH VBG pCO2 VBG pO2 VBG HCO3 VBG Total CO2 VBG O2 Saturation VBG Base Excess Sodium 137 Potassium 5.3 H Chloride 108 H Carbon Dioxide 16.9 L Anion Gap 12.1 H BUN 47 H Creatinine 2.55 H Estimated GFR/1.73 m2 25.97 Glucose 238 H D Calcium 8.3 L Magnesium 1.8 C-Reactive Protein 0.29 06/15/18 06/15/18 08:35 16:18 WBC RBC Hgb Hct MCV MCH MCHC RDW Plt Count MPV Immature Gran % Neutrophils % Band Neutrophils % Lymphocytes % Atypical Lymphs % Monocytes % Eosinophils % Basophils % Metamyelocytes % Myelocytes % Promyelocytes % Absolute Neutrophils Absolute Lymphocytes Absolute Monocytes Absolute Eosinophils Absolute Basophils Nucleated RBCs Differential Comment Other Cell Type RBC Morphology Polychromasia Hypochromasia Poikilocytosis Basophilic Stippling Anisocytosis Microcytosis Macrocytosis Spherocytes Target Cells Tear Drop Cells Ovalocytes Stomatocytes [place] Bodies Sathya Cells Acanthocytes (Spur) Schistocytes VBG pH 7.27 L VBG pCO2 39 VBG pO2 47 H VBG HCO3 18 L VBG Total CO2 17 L VBG O2 Saturation 84 H VBG Base Excess -9.1 L Sodium 139 Potassium 4.7 Chloride 109 H Carbon Dioxide 17.5 L Anion Gap 12.5 H BUN 47 H Creatinine 2.80 H Estimated GFR/1.73 m2 23.31 Glucose 231 H Calcium 8.1 L Magnesium C-Reactive Protein
[2018-06-15] MEDS: Apixaban 5 MG TAB PO (21:54)
[2018-06-15] MEDS: risperiDONE 1 MG TAB 3 MG PO (21:54)
[2018-06-15] MEDS: traZODone 50 MG TAB PO (23:58)
[2018-06-16] VITALS (44 sets, daily range): BP systolic 146–171; BP diastolic 56–70; PULSE 39–75; RESP 11–25; TEMP 35.9–36.8; O2SAT 96–98
[2018-06-16] MEDS: Hydrocortisone SOD SUC. 100 MG VIAL 50 MG IVP ×4 (04:05→21:02)
[2018-06-16] MEDS: PIPERACILLIN/TAZO 3.375 GM in Normal Saline 50 ML IVPB ×4 (04:05→22:30)
[2018-06-16] MEDS: Insulin NPH-Human 300 UNITS/3 ML PEN 12 UNIT SC ×3 (04:06→14:32)
[2018-06-16] MEDS: Normal Saline Flush 10 ML SYR IVP ×4 (04:06→23:46)
[2018-06-16] MEDS: Acetaminophen 325 MG TAB 650 MG PO ×4 (06:05→23:46)
[2018-06-16] MEDS: Levothyroxine 25 MCG TAB PO (06:06)
[2018-06-16 07:06] LABS: HCO3 (Venous) 18 mmol/L (22-28); O2 Sat (Venous) 93 % (70-80); TCO2 (Venous) 18 mmol/L (22-29); pCO2 (Venous) 42 mm/Hg (34-47); pH (Venous) 7.24 (7.32-7.43); pO2 (Venous) 66 mm/Hg (28-44)
[2018-06-16 07:11] LABS: Abs Immature Grans 0.24 k/cumm (0.0-0.09); HCT 32.2 % (40.0-50.0); HGB 10.2 g/dL (13.5-17.5); Mean Corp. HGB Concentration 31.7 g/dL (32.0-36.0); Mean Corpuscular Hemoglobin 23.5 pg (27.0-33.0); Mean Corpuscular Volume 74.2 fL (80-95); Mean Platelet Volume 9.9 fL (8.0-11.0); Platelet Count 362 x1000/uL (130-400); RBC 4.34 m/cumm (4.50-6.00); RBC Distribution Width 17.7 % (11.8-14.1); White Blood Cell Count 10.25 k/cumm (4.4-10.8)
[2018-06-16 07:25] LABS: Anion Gap 9.5 mmol/L (3-11); BUN 43 mg/dL (7-18); C-Reactive Protein 0.11 mg/dL (0.0-0.3); CO2 20.5 mmol/L (21.0-32.0); CREATININE 2.53 mg/dL (0.70-1.30); Calcium 8.3 mg/dL (8.5-10.1); Chloride 108 mmol/L (98-107); Glucose 146 mg/dL (70-100); Magnesium 1.8 mg/dL (1.8-2.4); Sodium 138 mmol/L (136-145)
[2018-06-16 07:44] LABS: Absolute Eosinophil Count 0.31 k/cumm (0.0-0.7); Absolute Lymphocyte Count 0.62 k/cumm (1.2-3.4); Absolute Monocyte Count 0.41 k/cumm (0.11-0.7); Absolute Neutrophil Count 8.82 k/cumm (1.2-6.7)
[2018-06-16 07:45] LABS: Diff Comment Manual Differential
[2018-06-16 07:46] LABS: Anisocytosis 2+; Basophilic Stippling Present; Burr Cells (echinocyte) 2+; Hypochromasia 3+; Microcytosis 3+; Ovalocytes 2+; Poikilocytes 2+; Polychromasia Present
--- NOTE | 2018-06-16 08:18 | PDOC.CMPRO ---
Care Management Progress Note S/O: Brendan completed podiatry consult with this morning; please refer to his note for further information. Brendan had metatarsal debriedment and Dr. Ashford recommended he only be permitted to ambulate with his diabetic shoes on. CM called the [facility] to request his shoes be brought to [facility]; Isela agreed to coordinate. Plan remains for him to return to the [facility] when ready. A: 58 year old male admitted to [facility] with abdominal pain and single episode of vomiting. Brendan has chronic disease including adrenal insufficiency on chronic steroids, Chrons disease with ostomy. He also has DM, Chronic kidney disease, neuropathy and decrease mobility. P: Brendan will return to the [facility] when ready per MD; likely via [facility]. CM will continue to follow and support discharge planning considerations.
--- NOTE | 2018-06-16 08:36 | CMPROGNOTE_ITS ---
Care Management Progress Note S/O: Brendan completed podiatry consult with this morning; please refer to his note for further information. Brendan had metatarsal debriedment and Dr. Ashford recommended he only be permitted to ambulate with his diabetic shoes on. CM called the [facility] to request his shoes be brought to [facility]; Isela agreed to coordinate. Plan remains for him to return to the [facility] when ready. A: 58 year old male admitted to [facility] with abdominal pain and single episode of vomiting. Brendan has chronic disease including adrenal insufficiency on chronic steroids, Chrons disease with ostomy. He also has DM, Chronic kidney disease, neuropathy and decrease mobility. P: Brendan will return to the [facility] when ready per MD; likely via [facility]. CM will continue to follow and support discharge planning considerations.
[2018-06-16] MEDS: Pantoprazole 40 MG VIAL IVP ×2 (09:39→20:50)
[2018-06-16] MEDS: Fluticasone NASAL SPRAY 16 GM BTL NS (09:39)
[2018-06-16] MEDS: Collagenase 30 GM TUBE TP (09:40)
[2018-06-16] MEDS: Insulin Glargine 300 UNITS/3 ML PEN 60 UNITS SC (09:41)
[2018-06-16] MEDS: Insulin Aspart 300 UNITS/3 ML PEN SC ×4 (09:45→22:52)
[2018-06-16] MEDS: Ascorbic Acid 500 MG TAB 250 MG PO ×2 (09:52→20:51)
[2018-06-16] MEDS: Cyanocobalamin 500 MCG TAB 1000 MCG PO (09:53)
[2018-06-16] MEDS: Fluconazole 100 MG TAB 200 MG PO (09:54)
[2018-06-16] MEDS: Furosemide 40 MG TAB PO ×2 (09:54→16:03)
[2018-06-16] MEDS: Metoprolol 12.5 MG TAB PO ×2 (09:54→20:55)
[2018-06-16] MEDS: Folic Acid 1 MG TAB PO (09:54)
[2018-06-16] MEDS: Lactobacillus Acidophilus CAP 1 CAP PO ×3 (09:54→20:53)
[2018-06-16] MEDS: Multivitamin w/Minerals TAB 1 TAB PO (09:54)
[2018-06-16] MEDS: Venlafaxine 37.5 MG CAPCR 75 MG PO (09:55)
[2018-06-16] MEDS: Magnesium Chloride 64 MG TABCR PO ×2 (09:55→22:20)
[2018-06-16] MEDS: Apixaban 5 MG TAB PO ×2 (09:55→20:56)
[2018-06-16] MEDS: hydrALAZINE 10 MG TAB PO ×3 (09:55→20:53)
[2018-06-16] MEDS: Ferrous Sulfate 325 MG TAB PO ×2 (09:55→20:52)
[2018-06-16] MEDS: cloNIDine 0.1 MG TAB 0.3 MG PO ×3 (09:56→20:53)
[2018-06-16] MEDS: Hydrocortisone 10 MG TAB PO ×2 (09:56→20:56)
[2018-06-16] MEDS: Terazosin 2 MG CAP 4 MG PO ×2 (09:56→20:50)
[2018-06-16] MEDS: Sodium Bicarbonate 650 MG TAB PO ×4 (09:56→23:47)
[2018-06-16] MEDS: amLODIPine 10 MG TAB PO (09:57)
--- NOTE | 2018-06-16 15:21 | CHAPLAIN ---
Brendan said he will likely here until the end of the week, and he's agreeable to that. He likes the food here he said. Brendan had asked me to let Maldonado Ford from [facility] know that he was here. I left a message for Maldonado and he visited yesterday. Brendan was happy to see him. I will continue to visit Brendan.
--- NOTE | 2018-06-16 18:42 | PGE_ITS ---
Date of Service Date of service: 06/16/18 Time of Service: 12:30 Assessment and Plan (1) Atrial flutter, paroxysmal: Current visit: Yes Status: Acute Converted to NSR, now bradycardic, despite decrease of a dose in metoprolol x 2. Today the HR has been 47-72. Atrial flutter is a new diagnosis, likely precipitated by dehydration and potential infection. However, the patient does have a history of untreated JESSICA, which is likely a big contributor. No evidence of intracardiac thrombi. Continue eliquis. Will monitor HR on decreased dose of metoprolol x 24 more hours. If it has to be held more than it is given, will d/c. H/H is stable on eliquis, which is reassuring, even though there is chronic hemoccult positivity due to Jonathon's. Continue close monitoring of H/H. Continue tele. (2) Elevated troponin I level: Current visit: Yes Status: Acute Minimal and equivocal, in setting of acute illness, dehydration, Atrial Flutter with rapid rate, and poor clearance due to JESUS superimposed on CKD. Troponin already normalized. No evidence of NSTEMI. (3) UTI (urinary tract infection): Current visit: Yes Status: Acute Evidence of Pyuria; c&S positive for yeast (not speciated). Continue fluconazole (day 5), per ID recommendation. Await speciation of yeast, fungal cultures. Renal Ultrasound unremarkable. Downing discontinued. Consider potential diagnosis of prostatitis as well if repeat urinalysis does not clear. 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 s/p Debridement on 06/15/18. Continue vancomycin/zosyn (day 3) Does need vascular follow up as outpatient. (S/p debridement on 03/06 with resection of the 5th MPJ - culture of the tissue grew MRSA and Proteus Mirabilis. Osteo was not confirmed by biopsy. He received an approximate 2 week course of antibiotics for this.) Qualifiers: Laterality: left Non-pressure ulcer stage: limited to breakdown of skin Qualified Code(s): E11.621 - Type 2 diabetes mellitus with foot ulcer; L97.521 - Non-pressure chronic ulcer of other part of left foot limited to breakdown of skin (5) Diabetic foot ulcer: Current visit: No Status: Chronic As above (6) Adrenal insufficiency: Current visit: No Status: Chronic Due to long-term steroid use. Was recently switched from prednisone to Hydrocortisone. Now with severe metabolic acidosis, slow to improve. Bicarb increased - keep steroid dose the same. Continue empiric abx. Treat underlying infection. (7) Chronic cholecystitis: Current visit: No Status: Chronic Drain functioning well. Has been deemed a poor surgical candidate. F/u with general surgery as outpatient. (8) Acute on chronic kidney failure: Current visit: Yes Status: Acute Prerenal, Cr better - will continue to trend, but no changes to meds at this time other than metoprolol (it is possible he is hypoperfusing due to bradycardia). Qualifiers: Acute renal failure type: unspecified Chronic kidney disease stage: stage 4 (severe) Qualified Code(s): N17.9 - Acute kidney failure, unspecified; N18.4 - Chronic kidney disease, stage 4 (severe) (9) Hyperkalemia: Current visit: No Status: Resolved Continue renal diet. (10) MRSA bacteremia: Current visit: No Status: Resolved Prior to this admission, already treated; Vancomycin completed. Repeat Blood Culture obtained, NGTD (including from PICC). Abx resumed in light of above (11) Poorly controlled type 2 diabetes mellitus with circulatory disorder: Current visit: No Status: Chronic Increase basal and NPH insulin (12) Anemia: Current visit: No Status: Chronic Microcytic, with Heme + stools. Iron studies with low TIBC, but inappropriately normal Ferritin - potential for Anemia of Chronic Disease with superimposed blood loss. B12 and FA normal, but with low TSH as well. H/H remains stable. Continue IV PPI BID. Monitor carefully on anticoagulation. (13) Hypothyroidism: Current visit: No Status: Chronic Low TSH - in setting of acute illness. However, patient with substantial weight loss over the course of the last 6 months and did present to the hospital with rapid Aflutter. Synthroid dose decreased; Repeat TSH in 4-6 weeks. (14) DVT prophylaxis: Current visit: Yes Status: Acute Eliquis resumed (15) Advance directive on file: Current visit: Yes Status: Acute Full Code. Vascular follow up as outpatient (16) Metabolic acidosis: Current visit: Yes Status: Acute s/p bicarb gtt. Usually happens in setting of acute adrenal insufficiency with this patient. Continue stress dose steroids and monitoring in ICU. Recheck VBG in am. Increase bicarb PO. Subjective Interval history since last seen: Brendan states that his R arm is bothering him. Pain is ok right now, but he is worried that his pain medications will get taken away at the longterm because so many of them already have been (methadone, gabapentin). He thinks that his pain being under control will help him do more physical therapy. He denies dizziness, chest pain, complains of ongoing nonproductive cough, though this is much better, denies shortness of breath, nausea, vomiting Dr Ashford did not feel that there was evidence of osteomyelitis in the R foot - but is concerned about the ulcer on his left foot, thinking it might be infected. It was sharply debrided. Exam Narrative Exam Narrative: General: Very pleasant middle-aged male, NAD, A&Ox3, laughs; asks good questions about adrenal insufficiency HEENT: EOMI, MMM, poor dentition Heart: RRR, no m/r/g Lungs: CTAB GI: abdomen is soft, nontender, nondistended; ostomy/cholecystostomy drains Extremities: chronic venous stasis dermatitis, B feet in socks; +2 pedal pulses B Objective Objective Clinical Data: Abnormal lab results 06/16/18 06/16/18 06/16/18 Range/Units 06:14 06:14 06:24 RBC 4.34 L (4.50-6.00) m/cumm Hgb 10.2 L D (13.5-17.5) g/dL Hct 32.2 L (40.0-50.0) % MCV 74.2 L (80-95) fL MCH 23.5 L (27.0-33.0) pg MCHC 31.7 L (32.0-36.0) g/dL RDW 17.7 H (11.8-14.1) % Absolute Neutrophils 8.82 H (1.2-6.7) k/cumm Absolute Lymphocytes 0.62 L (1.2-3.4) k/cumm VBG pH 7.24 L (7.32-7.43) VBG pO2 66 H (28-44) mm/Hg VBG HCO3 18 L (22-28) mmol/L VBG Total CO2 18 L (22-29) mmol/L VBG O2 Saturation 93 H (70-80) % Chloride 108 H (98-107) mmol/L Carbon Dioxide 20.5 L (21.0-32.0) mmol/L BUN 43 H (7-18) mg/dL Creatinine 2.53 H (0.70-1.30) mg/dL Glucose 146 H D (70-100) mg/dL Calcium 8.3 L (8.5-10.1) mg/dL Vital Signs Temperature 35.9 C L 06/16/18 14:03 Temperature Source Temporal Artery Scan 06/16/18 14:03 Pulse 62 06/16/18 09:47 Pulse Rhythm Regular 06/14/18 00:05 Pulse 58 L 06/16/18 13:30 Respiratory Rate 17 06/16/18 13:30 Respiratory Effort Non-Labored 06/16/18 14:03 Respiratory Depth Shallow 06/16/18 14:03 Respiratory Pattern Normal 06/16/18 14:03 Blood Pressure 163/61 H 06/16/18 09:47 Blood Pressure Mean 83 06/16/18 09:47 Blood Pressure Position Sitting 06/15/18 16:01 Pulse Oximetry 96 06/16/18 09:47 Oxygen Delivery Method Room Air 06/16/18 07:10 Oxygen Flow Rate 0 06/16/18 07:10 Pain Level 2 06/16/18 14:03 Comment 06/08/18 12:59 Intake & Output 06/15/18 06/16/18 06/16/18 23:59 11:59 23:59 Intake Total 1330 / 2970 80 / 630 550 / 630 Output Total 2570 / 3970 1400 / 2300 900 / 2300 Balance -1240 / -1000 -1320 / -1670 -350 / -1670 Weight 104.3 kg Intake: IV 340 / 690 80 / 130 50 / 130 Oral 990 / 1980 500 / 500 Output: Drainage 400 / 700 300 / 700 Gallbladder drain 400 / 700 300 / 700 Urine 1535 / 2235 750 / 950 200 / 950 Stool 1035 / 1735 250 / 650 400 / 650 Other: Urine Color Yellow Yellow Yellow Straw Straw Urine Appearance Clear Clear Clear Urine Odor Normal None Voiding Methods Urinal Urinal Urinal Laboratory Results WBC 10.25 k/cumm (4.4-10.8) D 06/16/18 06:24 RBC 4.34 m/cumm (4.50-6.00) L 06/16/18 06:24 Hgb 10.2 g/dL (13.5-17.5) L D 06/16/18 06:24 Hct 32.2 % (40.0-50.0) L 06/16/18 06:24 MCV 74.2 fL (80-95) L 06/16/18 06:24 MCH 23.5 pg (27.0-33.0) L 06/16/18 06:24 MCHC 31.7 g/dL (32.0-36.0) L 06/16/18 06:24 RDW 17.7 % (11.8-14.1) H 06/16/18 06:24 Plt Count 362 x1000/uL (130-400) 06/16/18 06:24 MPV 9.9 fL (8.0-11.0) 06/16/18 06:24 Immature Gran % See Differential 06/16/18 06:24 Neutrophils % 85.0 06/16/18 06:24 Band Neutrophils % 1.0 % 06/16/18 06:24 Lymphocytes % 6.0 06/16/18 06:24 Atypical Lymphs % Cancelled 06/15/18 06:45 Monocytes % 4.0 06/16/18 06:24 Eosinophils % 3.0 06/16/18 06:24 Basophils % 0.0 06/16/18 06:24 Metamyelocytes % 0.0 % 06/10/18 06:30 Myelocytes % 1.0 % 06/16/18 06:24 Promyelocytes % 0 % 06/10/18 06:30 Absolute Neutrophils 8.82 k/cumm (1.2-6.7) H 06/16/18 06:24 Absolute Lymphocytes 0.62 k/cumm (1.2-3.4) L 06/16/18 06:24 Absolute Monocytes 0.41 k/cumm (0.11-0.7) 06/16/18 06:24 Absolute Eosinophils 0.31 k/cumm (0.0-0.7) 06/16/18 06:24 Absolute Basophils 0.00 k/cumm (0.0-0.2) 06/16/18 06:24 Nucleated RBCs 1 /100WBC 06/08/18 10:00 Differential Comment Manual differential 06/16/18 06:24 Other Cell Type 0 06/10/18 06:30 RBC Morphology See below 06/16/18 06:24 Polychromasia Present 06/16/18 06:24 Hypochromasia 3+ 06/16/18 06:24 Poikilocytosis 2+ 06/16/18 06:24 Basophilic Stippling Present 06/16/18 06:24 Anisocytosis 2+ 06/16/18 06:24 Microcytosis 3+ 06/16/18 06:24 Macrocytosis Cancelled 06/15/18 06:45 Spherocytes Cancelled 06/15/18 06:45 Target Cells Cancelled 06/15/18 06:45 Tear Drop Cells Cancelled 06/15/18 06:45 Ovalocytes 2+ 06/16/18 06:24 Stomatocytes Cancelled 06/15/18 06:45 [place] Bodies Cancelled 06/15/18 06:45 Sathya Cells 2+ 06/16/18 06:24 Acanthocytes (Spur) Cancelled 06/15/18 06:45 Schistocytes 1+ 06/15/18 07:12 VBG pH 7.24 (7.32-7.43) L 06/16/18 06:14 VBG pCO2 42 mm/Hg (34-47) 06/16/18 06:14 VBG pO2 66 mm/Hg (28-44) H 06/16/18 06:14 VBG HCO3 18 mmol/L (22-28) L 06/16/18 06:14 VBG Total CO2 18 mmol/L (22-29) L 06/16/18 06:14 VBG O2 Saturation 93 % (70-80) H 06/16/18 06:14 VBG Base Excess mmol/L (-3-3) 06/16/18 06:14 Sodium 138 mmol/L (136-145) 06/16/18 06:14 Potassium 4.0 mmol/L (3.5-5.1) 06/16/18 06:14 Chloride 108 mmol/L (98-107) H 06/16/18 06:14 Carbon Dioxide 20.5 mmol/L (21.0-32.0) L 06/16/18 06:14 Anion Gap 9.5 mmol/L (3-11) 06/16/18 06:14 BUN 43 mg/dL (7-18) H 06/16/18 06:14 Creatinine 2.53 mg/dL (0.70-1.30) H 06/16/18 06:14 Estimated GFR/1.73 m2 26.20 (mL/min/1.73m2) 06/16/18 06:14 Glucose 146 mg/dL (70-100) H D 06/16/18 06:14 Lactate 1.1 mmol/l (0.6-1.4) 06/14/18 13:43 Calcium 8.3 mg/dL (8.5-10.1) L 06/16/18 06:14 Magnesium 1.8 mg/dL (1.8-2.4) 06/16/18 06:14 Iron 52 ug/dL (50-175) 06/11/18 06:15 TIBC 217 ug/dL (250-450) L 06/11/18 06:15 Transferrin % Sat 24 % (20-55) 06/11/18 06:15 Ferritin 140 ng/mL (8-388) 06/11/18 06:15 Total Bilirubin 0.3 mg/dL (0.2-1.0) 06/08/18 10:00 AST 12 U/L (15-37) L 06/08/18 10:00 ALT 15 U/L (12-78) 06/08/18 10:00 Alkaline Phosphatase 310 U/L (46-116) H 06/08/18 10:00 Troponin I 0.05 ng/mL (0.00-0.06) 06/08/18 19:55 C-Reactive Protein 0.11 mg/dL (0.0-0.3) 06/16/18 06:14 Total Protein 7.6 g/dL (6.4-8.2) 06/08/18 10:00 Albumin 2.9 g/dL (3.4-5.0) L 06/08/18 10:00 Lipase 130 U/L (73-393) 06/08/18 10:00 Vitamin B12 1315 pg/mL (193-986) H 06/11/18 06:15 Folate > 20.0 ng/mL (8.6-20.0) H 06/11/18 06:15 TSH 0.26 uIU/mL (0.358-3.74) L 06/11/18 06:15 Urine Color Yellow (Yellow) 06/08/18 13:30 Urine Clarity Cloudy 06/08/18 13:30 Urine pH 5.5 (5-8) 06/08/18 13:30 Ur Specific [place] 1.020 (1.005-1.025) 06/08/18 13:30 Urine Protein 100 mg/dL (Negative) H 06/08/18 13:30 Urine Ketones Negative mg/dL (Negative) 06/08/18 13:30 Urine Blood Small (Negative) H 06/08/18 13:30 Urine Nitrite Negative (Negative) 06/08/18 13:30 Urine Bilirubin Negative (Negative) 06/08/18 13:30 Urine Urobilinogen 0.2 EU/dL (Up TO 0.2) 06/08/18 13:30 Ur Leukocyte Esterase Moderate (Negative) H 06/08/18 13:30 Urine RBC Not Applicable 06/08/18 13:30 Urine WBC >50 HPF (0-5) 06/08/18 13:30 Ur Epithelial Cells Not Applicable 06/08/18 13:30 Urine Crystals Not Applicable 06/08/18 13:30 Urine Bacteria Not Applicable 06/08/18 13:30 Urine Mucus Not Applicable 06/08/18 13:30 Ur Culture Indicated? Yes 06/08/18 13:30 Urine Glucose Negative mg/dL (Negative) 06/08/18 13:30 Vancomycin Trough 15.2 ug/mL (10.0-20.0) 06/09/18 06:15 Organism ID Status (see note) 06/12/18 14:27 Yeast Id Source (see note) 06/12/18 14:27 Yeast Organism Id (see note) 06/12/18 14:27 Echo: 1. Left ventricle: The cavity size was normal. Wall thickness was increased in a pattern of moderate LVH. Systolic function was normal. The estimated ejection fraction was 60-65%. Some parameters suggest diastolic dysfunction. There was no evidence of elevated ventricular filling pressure by Doppler parameters. 2. Mitral valve: There was moderate regurgitation. 3. Left atrium: The atrium was mildly dilated. 4. Right ventricle: The cavity size was normal. Wall thickness was normal. Systolic function was normal. 5. Right atrium: The atrium was mildly dilated. 6. Atrial septum: No defect or patent foramen ovale was identified. 7. Tricuspid valve: There was moderate regurgitation. 8. Pulmonary arteries: Pulmonary systolic pressure was in the range of 40mm Hg to 50mm Hg. 9. Inferior vena cava: The vessel was patent and normal in size. The respirophasic diameter changes were in the normal range (greater than or equal to 50%), consistent with normal central venous pressure.
[2018-06-16] MEDS: Insulin NPH-Human 300 UNITS/3 ML PEN 16 UNIT SC (22:33)
--- NOTE | 2018-06-16 23:03 | OT.INIE ---
Occupational Therapy Notes Inpatient Occupational Therapy Evaluation Date: 06/16/18 Referring Doctor:Priscila Canela MD OT Orders: Eval and Treat Precautions: Fall Risk, Standard PATIENT PROFILE/ADMITTING DIAGNOSIS: Pt is a 58 year old male who has been admitted multiple times to [facility] from [facility] since October 2017. He was admtted through the ER for abdominal pain and vomitting. 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) Palliative care encounter (Acute) Pulmonary hypertension (Chronic) Toxic metabolic encephalopathy (Resolved) Advance directive on file (Chronic) Chronic cholecystitis (Chronic) 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 2 diabetes mellitus (Ruled-out) HCAP (healthcare-associated pneumonia) (Resolved) MRSA bacteremia (Acute) Ambulatory dysfunction (Chronic) Diabetic foot ulcer (Chronic) Poorly controlled type 2 diabetes mellitus with circulatory disorder (Chronic) Adrenal insufficiency (Chronic) CKD (chronic kidney disease) (Chronic) Cardiopulmonary arrest with successful resuscitation (Resolved) Heme positive stool (Chronic) Sepsis (Resolved) Pedal edema (Chronic) Chronic insomnia (Chronic) Hypertension (Chronic) Chronic pain (Chronic) Hypothyroidism (Chronic) Obesity (Chronic) Back pain (Chronic 06/21/13) Inability to get out of bed (Chronic 06/21/13) Poor self care (Chronic 06/21/13) Chronic bipolar disorder (Chronic) CAD (coronary artery disease) (Chronic) Dyslipidemia (Chronic) Rheumatoid arthritis (Chronic) Osteoarthritis of both knees (Chronic) Cholelithiasis (Chronic) Impaired mobility and ADLs (Chronic) Hemorrhagic cystitis (Inactive) Anemia (Chronic) Chronic anxiety (Chronic) Ulcerative colitis (Chronic) Surgical History History of insertion of T-tube into biliary tract (Chronic) S/P colectomy (Chronic) Arthroplasty of knee (Resolved 03/18/12) Fracture, Open Treatment (Resolved) Current Functional Limitations: Decreased functional activity tolerance, decreased (I) in ADLs. Pt reports that he is not currently at his baseline for ADLs or baseline level of function since last hospitalization at [facility], decreased (B) UE ROM, increased pain in (R) UE decreasing gross and fine motor coordination during ADLs. Social History/Home Situation: Pt resides at [facility]. He reports that his is currently total (A) for ADLs but this has recently decline since November 2017 which pt reports at every evaluation performed by OT since. Pt is well known to OT. He states that he functionally noticed a decline in his medical status about 2 weeks ago. Equipment owned/DME: [facility] which he uses for ambulation, he is a resident of SNF so all other DME are met through the facility. SUBJECTIVE: Pt was sitting on the side of his bed when OT arrived. He is pleasant and reports that he was admitted with an infection and they are unsure as to where the infection is coming from at this time. He states that he had his (B) feet looked at by Dr. Ashford this morning. Pt states that he may be transferred down to [facility] sometime this week for more specified testing. OBJECTIVE: General Observation: Downing, IV (L) UE, telemetry, T-tube, Mental Status: A&Ox3 Pain: c/o pain in (R) UE. ROM: RUE Shoulder flexion to 60*, elbow unable due to pain L UE Shoulder flexion ~30*, elbow flexion WFL with hard end feel for PROM STRENGTH: RUE Unable to test shoulder flexion or elbow as pt is not able to assume ideal testing position, modified testing pt is 3-/5 throughout trace clerk is weak and symmetrical LUE Unable to test shoulder flexion or elbow as pt is not able to assume ideal testing position, modified testing pt is 3-/5 throughout trace clerk is weak and symmetrical BALANCE: Static sitting normal Dynamic Sitting good Static Standing NT Dynamic Standing NT Eating: Sitting on side of bed pt required max (A) for opening and closing containers, but (I) with food to mouth translation with fair technique given ROM deficits at this time. SPECIAL TESTS: Daily Activity Limitations Standardized Measure [facility] AM -PAC ?6 clicks? Daily Activity Inpatient Short Form: Raw score: 13 Standardized score: 32.03 CMS score: 63.03% INFORMED CONSENT/EDUCATION: Pt instructed in purpose of OT Consult and plan of care. ASSESSMENT: Patient is a 58-year-old male referred to occupational therapy services after being admitted through the ER at [facility] for abdominal pain and vomitting. Pt has been seen multiple times here at [facility] since October 2017 in setting of significant PMHx (see above). Patient presents with clinical signs and symptoms consistent with this dx and deconditioning, as demonstrated by the following impairment level findings: Decreased (B) UE ROM, Decreased (B) UE strengthening, decreased functional activity tolerance, decreased (I) in ADLs, decreased functional dynamic simulations. Impairments are contributing to the following functional limitations: Difficulty performing ADL routine per pt's baseline, decreased functional mobility, decreased gross and fine motor control of (B) UE. OT recommends that pt return to [facility] when medically cleared per MD. AMPAC score 13, CMS score 63.03% Patient is assessed as a Moderate 99169 complexity based on the following: History: See Above Examination: See Above Presentation: Evolving Decision Making: AMPAC score 13, CMS score 63.03% GOALS Goals x1 week in hospital setting 1. Transfers [facility], [facility] 2. Dressing: Sitting on side of bed, pt will be able to put (B) UE into the hospital gown (I) with min verbal cues. 3. Bathing: Sitting on side of bed pt will be able to wash face, (B) UE and abdomen (I) and upper legs with min verbal cues. 4. Pts trace clerk strength will improve to 4/5 (B) and pt will be able to grasp pen, eating utensils and toothbrush with increased (I). PLAN OF CARE/TREATMENT PLAN: 1x/day, 5 days/ week x 1week Initiate Occupational Therapy Services for bathing, dressing, grooming, toileting, eating, transfer training. DISCHARGE RECOMMENDATIONS Return to [facility] when medically cleared per MD. TREATMENT TIME/MINUTES/CODES 53613, 15 minutes (10:15) Suzanne Javier OTR/[facility]
--- NOTE | 2018-06-16 23:10 | OTIE_ITS ---
Occupational Therapy Notes Inpatient Occupational Therapy Evaluation Date: 06/16/18 Referring Doctor:Priscila Canela MD OT Orders: Eval and Treat Precautions: Fall Risk, Standard PATIENT PROFILE/ADMITTING DIAGNOSIS: Pt is a 58 year old male who has been admitted multiple times to [facility] from [facility] since October 2017. He was admtted through the ER for abdominal pain and vomitting. 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) Palliative care encounter (Acute) Pulmonary hypertension (Chronic) Toxic metabolic encephalopathy (Resolved) Advance directive on file (Chronic) Chronic cholecystitis (Chronic) 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 2 diabetes mellitus (Ruled-out) HCAP (healthcare-associated pneumonia) (Resolved) MRSA bacteremia (Acute) Ambulatory dysfunction (Chronic) Diabetic foot ulcer (Chronic) Poorly controlled type 2 diabetes mellitus with circulatory disorder (Chronic) Adrenal insufficiency (Chronic) CKD (chronic kidney disease) (Chronic) Cardiopulmonary arrest with successful resuscitation (Resolved) Heme positive stool (Chronic) Sepsis (Resolved) Pedal edema (Chronic) Chronic insomnia (Chronic) Hypertension (Chronic) Chronic pain (Chronic) Hypothyroidism (Chronic) Obesity (Chronic) Back pain (Chronic 06/21/13) Inability to get out of bed (Chronic 06/21/13) Poor self care (Chronic 06/21/13) Chronic bipolar disorder (Chronic) CAD (coronary artery disease) (Chronic) Dyslipidemia (Chronic) Rheumatoid arthritis (Chronic) Osteoarthritis of both knees (Chronic) Cholelithiasis (Chronic) Impaired mobility and ADLs (Chronic) Hemorrhagic cystitis (Inactive) Anemia (Chronic) Chronic anxiety (Chronic) Ulcerative colitis (Chronic) Surgical History History of insertion of T-tube into biliary tract (Chronic) S/P colectomy (Chronic) Arthroplasty of knee (Resolved 03/18/12) Fracture, Open Treatment (Resolved) Current Functional Limitations: Decreased functional activity tolerance, decreased (I) in ADLs. Pt reports that he is not currently at his baseline for ADLs or baseline level of function since last hospitalization at [facility], decreased (B) UE ROM, increased pain in (R) UE decreasing gross and fine motor coordination during ADLs. Social History/Home Situation: Pt resides at [facility]. He reports that his is currently total (A) for ADLs but this has recently decline since November 2017 which pt reports at every evaluation performed by OT since. Pt is well known to OT. He states that he functionally noticed a decline in his medical status about 2 weeks ago. Equipment owned/DME: [facility] which he uses for ambulation, he is a resident of SNF so all other DME are met through the facility. SUBJECTIVE: Pt was sitting on the side of his bed when OT arrived. He is pleasant and reports that he was admitted with an infection and they are unsure as to where the infection is coming from at this time. He states that he had his (B) feet looked at by Dr. Ashford this morning. Pt states that he may be transferred down to [facility] sometime this week for more specified testing. OBJECTIVE: General Observation: Downing, IV (L) UE, telemetry, T-tube, Mental Status: A&Ox3 Pain: c/o pain in (R) UE. ROM: RUE Shoulder flexion to 60*, elbow unable due to pain L UE Shoulder flexion ~30*, elbow flexion WFL with hard end feel for PROM STRENGTH: RUE Unable to test shoulder flexion or elbow as pt is not able to assume ideal testing position, modified testing pt is 3-/5 throughout soil analyst is weak and symmetrical LUE Unable to test shoulder flexion or elbow as pt is not able to assume ideal testing position, modified testing pt is 3-/5 throughout soil analyst is weak and sy mmetrical BALANCE: Static sitting normal Dynamic Sitting good Static Standing NT Dynamic Standing NT Eating: Sitting on side of bed pt required max (A) for opening and closing containers, but (I) with food to mouth translation with fair technique given ROM deficits at this time. SPECIAL TESTS: Daily Activity Limitations Standardized Measure [facility] AM -PAC ?6 clicks? Daily Activity Inpatient Short Form: Raw score: 13 Standardized score: 32.03 CMS score: 63.03% INFORMED CONSENT/EDUCATION: Pt instructed in purpose of OT Consult and plan of care. ASSESSMENT: Patient is a 58-year-old male referred to occupational therapy services after being admitted through the ER at [facility] for abdominal pain and vomitting. Pt has been seen multiple times here at [facility] since October 2017 in setting of significant PMHx (see above). Patient presents with clinical signs and symptoms consistent with this dx and deconditioning, as demonstrated by the following impairment level findings: Decreased (B) UE ROM, Decreased (B) UE strengthening, decreased functional activity tolerance, decreased (I) in ADLs, decreased functional dynamic simula tions. Impairments are contributing to the following functional limitations: Difficulty performing ADL routine per pt's baseline, decreased functional mobility, decreased gross and fine motor control of (B) UE. OT recommends that pt return to [facility] when medically cleared per MD. AMPAC score 13, CMS score 63.03% Patient is assessed as a Moderate [id number] complexity based on the following: History: See Above Examination: See Above Presentation: Evolving Decision Making: AMPAC score 13, CMS score 63.03% GOALS Goals x1 week in hospital setting 1. Transfers [facility], [facility] 2. Dressing: Sitting on side of bed, pt will be able to put (B) UE into the hospital gown (I) with min verbal cues. 3. Bathing: Sitting on side of bed pt will be able to wash face, (B) UE and abdomen (I) and upper legs with min verbal cues. 4. Pts soil analyst strength will improve to 4/5 (B) and pt will be able to grasp pen, eating utensils and toothbrush with increased (I). PLAN OF CARE/TREATMENT PLAN: 1x/day, 5 days/ week x 1week Initiate Occupational Therapy Services for bathing, dressing, grooming, toileting, eating, transfer training. DISCHARGE RECOMMENDATIONS Return to [facility] when medically cleared per MD. TREATMENT TIME/MINUTES/CODES 80346, 15 minutes (10:15) Suzanne Javier OTR/[facility]
[2018-06-16] MEDS: risperiDONE 1 MG TAB 3 MG PO (23:46)
[2018-06-16] MEDS: traZODone 50 MG TAB PO (23:47)
[2018-06-17] VITALS (46 sets, daily range): BP systolic 127–165; BP diastolic 45–81; PULSE 38–100; RESP 12–41; TEMP 36.1–36.6; O2SAT 94–98
[2018-06-17] MEDS: Hydrocortisone SOD SUC. 100 MG VIAL 50 MG IVP ×3 (02:34→18:17)
[2018-06-17] MEDS: guaiFENesin/CODEINE PHOSPHATE 10 ML CUP PO (02:34)
[2018-06-17] MEDS: Insulin NPH-Human 300 UNITS/3 ML PEN 16 UNIT SC ×4 (02:49→20:57)
[2018-06-17] MEDS: PIPERACILLIN/TAZO 3.375 GM in Normal Saline 50 ML IVPB ×4 (03:33→22:13)
[2018-06-17] MEDS: Sodium Bicarbonate 650 MG TAB PO ×3 (05:49→18:17)
[2018-06-17] MEDS: Acetaminophen 325 MG TAB PO (05:50)
[2018-06-17] MEDS: Acetaminophen 325 MG TAB 650 MG PO ×3 (05:52→18:17)
[2018-06-17 06:45] LABS: HCO3 (Venous) 21 mmol/L (22-28); O2 Sat (Venous) 96 % (70-80); TCO2 (Venous) 20 mmol/L (22-29); pCO2 (Venous) 44 mm/Hg (34-47); pH (Venous) 7.28 (7.32-7.43); pO2 (Venous) 77 mm/Hg (28-44)
[2018-06-17 06:52] LABS: Absolute Basophil Count 0.02 k/cumm (0.0-0.2); Absolute Eosinophil Count 0.03 k/cumm (0.0-0.7); Absolute Neutrophil Count 9.48 k/cumm (1.2-6.7); Basophils % 0.2; Eosinophils % 0.3; HCT 33.1 % (40.0-50.0); HGB 10.7 g/dL (13.5-17.5); Immature Grans % 1.8; Lymphocytes % 6.5; Mean Corp. HGB Concentration 32.3 g/dL (32.0-36.0); Mean Corpuscular Hemoglobin 23.9 pg (27.0-33.0); Mean Corpuscular Volume 73.9 fL (80-95); Mean Platelet Volume 9.5 fL (8.0-11.0); Monocytes % 3.7; Neutrophils % 87.5; Platelet Count 367 x1000/uL (130-400); RBC 4.48 m/cumm (4.50-6.00); RBC Distribution Width 17.5 % (11.8-14.1); White Blood Cell Count 10.83 k/cumm (4.4-10.8)
[2018-06-17 06:55] LABS: Anion Gap 9.7 mmol/L (3-11); BUN 38 mg/dL (7-18); CO2 22.3 mmol/L (21.0-32.0); CREATININE 2.34 mg/dL (0.70-1.30); Calcium 8.2 mg/dL (8.5-10.1); Chloride 108 mmol/L (98-107); Estimated GFR 28.67 (mL/min/1.73m2); Glucose 187 mg/dL (70-100); Magnesium 1.7 mg/dL (1.8-2.4); Potassium 3.6 mmol/L (3.5-5.1); Sodium 140 mmol/L (136-145)
--- NOTE | 2018-06-17 08:00 | PDOC.CMPRO ---
Care Management Progress Note S/O: Brendan continues to be closely monitored on IV steroids and ABX. Isela of the [facility] arrived today to provide Brendan his diabetic shoes. Plan remains for him to return to the [facility] when ready. A: 58 year old male admitted to [facility] with abdominal pain and single episode of vomiting. Brendan has chronic disease including adrenal insufficiency on chronic steroids, Chrons disease with ostomy. He also has DM, Chronic kidney disease, neuropathy and decrease mobility. P: Brendan will return to the [facility] when ready per MD; likely via [facility]. CM will continue to follow and support discharge planning considerations.
--- NOTE | 2018-06-17 08:17 | CMPROGNOTE_ITS ---
Care Management Progress Note S/O: Brendan continues to be closely monitored on IV steroids and ABX. Isela of the [facility] arrived today to provide Brendan his diabetic shoes. Plan remains for him to return to the [facility] when ready. A: 58 year old male admitted to [facility] with abdominal pain and single episode of vomiting. Brendan has chronic disease including adrenal insufficiency on chronic steroids, Chrons disease with ostomy. He also has DM, Chronic kidney disease, neuropathy and decrease mobility. P: Brendan will return to the [facility] when ready per MD; likely via [facility]. CM will continue to follow and support discharge planning considerations.
[2018-06-17] MEDS: Terazosin 2 MG CAP 4 MG PO ×2 (10:03→19:39)
[2018-06-17] MEDS: Multivitamin w/Minerals TAB 1 TAB PO (10:03)
[2018-06-17] MEDS: Magnesium Chloride 64 MG TABCR PO (10:03)
[2018-06-17] MEDS: Fluconazole 100 MG TAB 200 MG PO (10:03)
[2018-06-17] MEDS: cloNIDine 0.1 MG TAB 0.3 MG PO ×2 (10:03→19:38)
[2018-06-17] MEDS: Ascorbic Acid 500 MG TAB 250 MG PO ×2 (10:04→19:38)
[2018-06-17] MEDS: Ferrous Sulfate 325 MG TAB PO ×2 (10:04→19:38)
[2018-06-17] MEDS: Lactobacillus Acidophilus CAP 1 CAP PO ×3 (10:04→19:39)
[2018-06-17] MEDS: Venlafaxine 37.5 MG CAPCR 75 MG PO (10:04)
[2018-06-17] MEDS: Hydrocortisone 10 MG TAB PO ×2 (10:04→19:39)
[2018-06-17] MEDS: hydrALAZINE 10 MG TAB PO ×3 (10:05→19:39)
[2018-06-17] MEDS: Furosemide 40 MG TAB PO ×2 (10:05→16:48)
[2018-06-17] MEDS: Cyanocobalamin 500 MCG TAB 1000 MCG PO (10:05)
[2018-06-17] MEDS: amLODIPine 10 MG TAB PO (10:05)
[2018-06-17] MEDS: Pantoprazole 40 MG VIAL IVP ×2 (10:06→20:56)
[2018-06-17] MEDS: Apixaban 5 MG TAB PO ×2 (10:06→19:38)
[2018-06-17] MEDS: Folic Acid 1 MG TAB PO (10:06)
[2018-06-17] MEDS: MAGNESIUM SULFATE 1 GM/100 ML BAG IVPB (10:07)
[2018-06-17] MEDS: Insulin Aspart 300 UNITS/3 ML PEN SC ×4 (10:07→22:22)
[2018-06-17] MEDS: Insulin Glargine 300 UNITS/3 ML PEN 65 UNITS SC (10:08)
[2018-06-17] MEDS: Fluticasone NASAL SPRAY 16 GM BTL NS (11:03)
--- NOTE | 2018-06-17 12:00 | OT.INTREAT ---
Date of service: 06/17/18 Time of Service: 11:20 Occupational Therapy Notes Occupational Therapy Inpatient Treatment Note Date: 06/17/18 PRECAUTIONS: Fall, Standard SUBJECTIVE: Pt was sitting in chair when OT arrived. He was agreeable to OT session and states that he did not sleep well last night. OBJECTIVE: PAIN:When performing (R) shoulder flexion pain in (R) shoulder with depression. BATHING: Sitting in chair Upper Body: (I) face, (I) from elbow to digits, max (A) back, max (A) hair, min (A) abdomen Lower Body: NT DRESSING: NT GROOMING: Pt denies teeth, max (A) hair ASSESSMENT/PLAN: Pt functionally demonstrating increased passive ROM (B) UE when mobilized. He was able to touch his head with (L) UE and is still presenting with decreased ROM to (R) UE due to elbow trauma related incident. Pt functionally has increased his overall functional activity tolerance and was able to wash (B) UE from elbow to digits with ideal technique. TREATMENT CODES/TIME: [id number], 30 minutes (11:20) Suzanne Javier OTR/[facility]
--- NOTE | 2018-06-17 12:06 | OTTR_ITS ---
Date of service: 06/17/18 Time of Service: 11:20 Occupational Therapy Notes Occupational Therapy Inpatient Treatment Note Date: 06/17/18 PRECAUTIONS: Fall, Standard SUBJECTIVE: Pt was sitting in chair when OT arrived. He was agreeable to OT session and states that he did not sleep well last night. OBJECTIVE: PAIN:When performing (R) shoulder flexion pain in (R) shoulder with depression. BATHING: Sitting in chair Upper Body: (I) face, (I) from elbow to digits, max (A) back, max (A) hair, min (A) abdomen Lower Body: NT DRESSING: NT GROOMING: Pt denies teeth, max (A) hair ASSESSMENT/PLAN: Pt functionally demonstrating increased passive ROM (B) UE when mobilized. He was able to touch his head with (L) UE and is still presenting with decreased ROM to (R) UE due to elbow trauma related incident. Pt functionally has increased his overall functional activity tolerance and was able to wash (B) UE from elbow to digits with ideal technique. TREATMENT CODES/TIME: [id number], 30 minutes (11:20) Suzanne Javier OTR/[facility]
[2018-06-17] MEDS: cloNIDine 0.1 MG TAB 0.2 MG PO (14:18)
[2018-06-17] MEDS: Collagenase 30 GM TUBE TP (15:01)
--- NOTE | 2018-06-17 15:04 | WOUNDCARE ---
Wound Care Report Mr. Corley seen at bedside. He is agreeable to reassessment of buttocks/sacral redness and partial thickness wound on left ischial tuberosity. Reddened, blanchable area on sacrum looks unchanged from initial impression 7 days ago. See photo. Area cleansed and new Mepilex sacrum w/border placed. Partial thickness wound located on left ischial tuberosity measures 0.5x0.4x0.1. Also remains largely unchanged. recommend continuing current ordered Tx for described skin problems. Will reassess Pt next week if he is still here in the hospital.
--- NOTE | 2018-06-17 15:24 | PT.INTREAT ---
Date of service: 06/17/18 Time of Service: 15:24 PT Notes 06/17/18 SUBJECTIVE: Pt stating he is feeling a little better today. OBJECTIVE: Seated at edge of bed. Agreeable to PT. TRANSFERS Sit to stand: SBA Stand to sit: SBA GAIT: Device: FWW Weight bearing: AT Assist: SBA Distance: 5' THEREX: Light LE strengthening performed in seated position as noted on flow sheet. ASSESSMENT: PT seems to be feeling better today. He could ambulate farther distances although he does not have his shoes from the [facility] yet. PLAN: Continue to progress as he is able to tolerate. Treatment time: 15 minutes [id number]: Raquel Rashid PTA
[2018-06-17] MEDS: Normal Saline Flush 10 ML SYR IVP ×3 (18:18→21:39)
--- NOTE | 2018-06-17 18:43 | PGE_ITS ---
Date of Service Date of service: 06/17/18 Time of Service: 12:00 Assessment and Plan (1) Atrial flutter, paroxysmal: Current visit: Yes Status: Acute Converted to NSR, now bradycardic. Metoprolol d/c'ed. Monitor HR on clonidine - may have to be decreased as well. Atrial flutter is a new diagnosis, likely precipitated by dehydration and potential infection. However, the patient does have a history of untreated JESSICA, which is likely a big contributor. No evidence of intracardiac thrombi. Continue eliquis. Will monitor HR on decreased dose of metoprolol x 24 more hours. If it has to be held more than it is given, will d/c. H/H is stable on eliquis, which is reassuring, even though there is chronic hemoccult positivity due to Jonathon's. Continue close monitoring of H/H. Continue tele. Transfer out of ICU. (2) Elevated troponin I level: Current visit: Yes Status: Acute Minimal and equivocal, in setting of acute illness, dehydration, Atrial Flutter with rapid rate, and poor clearance due to JESUS superimposed on CKD. Troponin already normalized. No evidence of NSTEMI. (3) UTI (urinary tract infection): Current visit: Yes Status: Acute Evidence of Pyuria; c&S positive for yeast (not speciated). Continue fluconazole (day 6), per ID recommendation. Await speciation of yeast, fungal cultures. Renal Ultrasound unremarkable. Downing discontinued. Consider potential diagnosis of prostatitis as well if repeat urinalysis does not clear. 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 s/p Debridement on 06/15/18. Continue vancomycin/zosyn (day 4) Will discuss with Dr Ashford if he would feel comfortable discharging the patient back to the correction with vancomycin + augmentin and outpatient follow up with him and vascular. (S/p debridement on 03/06 with resection of the 5th MPJ - culture of the tissue grew MRSA and Proteus Mirabilis. Osteo was not confirmed by biopsy. He received an approximate 2 week course of antibiotics for this.) Qualifiers: Laterality: left Non-pressure ulcer stage: limited to breakdown of skin Qualified Code(s): E11.621 - Type 2 diabetes mellitus with foot ulcer; L97.521 - Non-pressure chronic ulcer of other part of left foot limited to breakdown of skin (5) Diabetic foot ulcer: Current visit: No Status: Chronic As above (6) Adrenal insufficiency: Current visit: No Status: Chronic Due to long-term steroid use. Was recently switched from prednisone to Hydrocortisone. Now with severe metabolic acidosis, slow to improve. Bicarb increased - Taper steroids Continue empiric abx. Treat underlying infection. (7) Chronic cholecystitis: Current visit: No Status: Chronic Drain functioning well. Has been deemed a poor surgical candidate. F/u with general surgery as outpatient. (8) Acute on chronic kidney failure: Current visit: Yes Status: Acute Prerenal, Cr better - will continue to trend, but no changes to meds at this time other than metoprolol (it is possible he is hypoperfusing due to bradycardia). Qualifiers: Acute renal failure type: unspecified Chronic kidney disease stage: stage 4 (severe) Qualified Code(s): N17.9 - Acute kidney failure, unspecified; N18.4 - Chronic kidney disease, stage 4 (severe) (9) Hyperkalemia: Current visit: No Status: Resolved Continue renal diet. (10) MRSA bacteremia: Current visit: No Status: Resolved Prior to this admission, already treated; Vancomycin completed. Repeat Blood Culture obtained, NGTD (including from PICC). Abx resumed in light of above (11) Poorly controlled type 2 diabetes mellitus with circulatory disorder: Current visit: No Status: Chronic Increase basal and decrease frequency of NPH insulin (12) Anemia: Current visit: No Status: Chronic Microcytic, with Heme + stools. Iron studies with low TIBC, but inappropriately normal Ferritin - potential for Anemia of Chronic Disease with superimposed blood loss. B12 and FA normal, but with low TSH as well. H/H remains stable. Continue IV PPI BID. Monitor carefully on anticoagulation. (13) Hypothyroidism: Current visit: No Status: Chronic Low TSH - in setting of acute illness. However, patient with substantial weight loss over the course of the last 6 months and did present to the hospital with rapid Aflutter. Synthroid dose decreased; Repeat TSH in 4-6 weeks. (14) DVT prophylaxis: Current visit: Yes Status: Acute Eliquis resumed (15) Advance directive on file: Current visit: Yes Status: Acute Full Code. Vascular follow up as outpatient (16) Metabolic acidosis: Current visit: Yes Status: Acute s/p bicarb gtt. Usually happens in setting of acute adrenal insufficiency with this patient. VBG better. Continue PO bicarb. Transfer out of ICU. Subjective Interval history since last seen: Brendan complains of aching all over. He denies dizziness, chest pain, shortness of breath, nausea, vomiting. Exam Narrative Exam Narrative: General: Very pleasant middle-aged male, NAD, A&Ox3, looks like he has more color in his face today HEENT: EOMI, MMM, poor dentition Heart: RRR, no m/r/g Lungs: CTAB GI: abdomen is soft, nontender, nondistended; ostomy/cholecystostomy drains Extremities: chronic venous stasis dermatitis, B feet in socks; +2 pedal pulses B, +1 BLE edema Objective Objective Clinical Data: Abnormal lab results 06/17/18 06/17/18 06/17/18 Range/Units 06:27 06:27 06:27 WBC 10.83 H (4.4-10.8) k/cumm RBC 4.48 L (4.50-6.00) m/cumm Hgb 10.7 L (13.5-17.5) g/dL Hct 33.1 L (40.0-50.0) % MCV 73.9 L (80-95) fL MCH 23.9 L (27.0-33.0) pg RDW 17.5 H (11.8-14.1) % Absolute Neutrophils 9.48 H (1.2-6.7) k/cumm Absolute Lymphocytes 0.70 L (1.2-3.4) k/cumm VBG pH 7.28 L (7.32-7.43) VBG pO2 77 H (28-44) mm/Hg VBG HCO3 21 L (22-28) mmol/L VBG Total CO2 20 L (22-29) mmol/L VBG O2 Saturation 96 H (70-80) % VBG Base Excess -6.0 L (-3-3) mmol/L Chloride 108 H (98-107) mmol/L BUN 38 H (7-18) mg/dL Creatinine 2.34 H (0.70-1.30) mg/dL Glucose 187 H (70-100) mg/dL Calcium 8.2 L (8.5-10.1) mg/dL Magnesium 1.7 L (1.8-2.4) mg/dL Vital Signs Temperature 36.1 C L 06/17/18 16:25 Temperature Source Tympanic 06/17/18 16:25 Pulse 62 06/17/18 16:14 Pulse Rhythm Regular 06/14/18 00:05 Pulse 68 06/17/18 16:14 Respiratory Rate 20 06/17/18 16:25 Respiratory Effort 06/17/18 16:25 Respiratory Depth Normal 06/17/18 16:25 Respiratory Pattern Normal 06/17/18 16:25 Blood Pressure 149/70 H 06/17/18 16:25 Blood Pressure Mean 96 06/17/18 16:25 Blood Pressure Position Supine 06/17/18 12:42 Pulse Oximetry 97 06/17/18 16:25 Oxygen Delivery Method Room Air 06/17/18 16:25 Oxygen Flow Rate 0 06/17/18 16:25 Pain Level 0 06/17/18 16:25 Comment 06/08/18 12:59 Intake & Output 06/16/18 06/17/18 06/17/18 23:59 11:59 23:59 Intake Total 1370 / 1450 1470 / 2555 1085 / 2555 Output Total 2450 / 3850 1000 / 2300 1300 / 2300 Balance -1080 / -2400 470 / 255 -215 / 255 Weight 96.9 kg Intake: IV 150 / 230 250 / 350 100 / 350 Oral 1220 / 1220 1220 / 2080 860 / 2080 Injectate 125 / 125 Gallbladder drain 125 / 125 Output: Drainage 300 / 700 150 / 150 Gallbladder drain 300 / 700 150 / 150 Urine 1350 / 2100 225 / 1375 1150 / 1375 Stool 800 / 1050 625 / 775 150 / 775 Other: Urine Color Yellow Yellow Yellow Urine Appearance Clear Clear Clear Urine Odor None None None Comment voiding clear, medium yellow urine in urinal. Voiding using the urinal. Emptied for 225 cc at this time. Moderate leukocytes, trace protein, pH of 6, SG 1.015 Voiding using the urinal without difficulty. Stool Size Large Stool Characteristics Brown Voiding Methods Urinal Urinal Urinal Laboratory Results WBC 10.83 k/cumm (4.4-10.8) H 06/17/18 06:27 RBC 4.48 m/cumm (4.50-6.00) L 06/17/18 06:27 Hgb 10.7 g/dL (13.5-17.5) L 06/17/18 06:27 Hct 33.1 % (40.0-50.0) L 06/17/18 06:27 MCV 73.9 fL (80-95) L 06/17/18 06:27 MCH 23.9 pg (27.0-33.0) L 06/17/18 06:27 MCHC 32.3 g/dL (32.0-36.0) 06/17/18 06:27 RDW 17.5 % (11.8-14.1) H 06/17/18 06:27 Plt Count 367 x1000/uL (130-400) 06/17/18 06:27 MPV 9.5 fL (8.0-11.0) 06/17/18 06:27 Immature Gran % 1.8 06/17/18 06:27 Neutrophils % 87.5 06/17/18 06:27 Band Neutrophils % 1.0 % 06/16/18 06:24 Lymphocytes % 6.5 06/17/18 06:27 Atypical Lymphs % Cancelled 06/15/18 06:45 Monocytes % 3.7 06/17/18 06:27 Eosinophils % 0.3 06/17/18 06:27 Basophils % 0.2 06/17/18 06:27 Metamyelocytes % 0.0 % 06/10/18 06:30 Myelocytes % 1.0 % 06/16/18 06:24 Promyelocytes % 0 % 06/10/18 06:30 Absolute Neutrophils 9.48 k/cumm (1.2-6.7) H 06/17/18 06:27 Absolute Lymphocytes 0.70 k/cumm (1.2-3.4) L 06/17/18 06:27 Absolute Monocytes 0.40 k/cumm (0.11-0.7) 06/17/18 06:27 Absolute Eosinophils 0.03 k/cumm (0.0-0.7) 06/17/18 06:27 Absolute Basophils 0.02 k/cumm (0.0-0.2) 06/17/18 06:27 Nucleated RBCs 1 /100WBC 06/08/18 10:00 Differential Comment Manual differential 06/16/18 06:24 Other Cell Type 0 06/10/18 06:30 RBC Morphology See below 06/16/18 06:24 Polychromasia Present 06/16/18 06:24 Hypochromasia 3+ 06/16/18 06:24 Poikilocytosis 2+ 06/16/18 06:24 Basophilic Stippling Present 06/16/18 06:24 Anisocytosis 2+ 06/16/18 06:24 Microcytosis 3+ 06/16/18 06:24 Macrocytosis Cancelled 06/15/18 06:45 Spherocytes Cancelled 06/15/18 06:45 Target Cells Cancelled 06/15/18 06:45 Tear Drop Cells Cancelled 06/15/18 06:45 Ovalocytes 2+ 06/16/18 06:24 Stomatocytes Cancelled 06/15/18 06:45 [place] Bodies Cancelled 06/15/18 06:45 Page Cells 2+ 06/16/18 06:24 Acanthocytes (Spur) Cancelled 06/15/18 06:45 Schistocytes 1+ 06/15/18 07:12 VBG pH 7.28 (7.32-7.43) L 06/17/18 06:27 VBG pCO2 44 mm/Hg (34-47) 06/17/18 06:27 VBG pO2 77 mm/Hg (28-44) H 06/17/18 06:27 VBG HCO3 21 mmol/L (22-28) L 06/17/18 06:27 VBG Total CO2 20 mmol/L (22-29) L 06/17/18 06:27 VBG O2 Saturation 96 % (70-80) H 06/17/18 06:27 VBG Base Excess -6.0 mmol/L (-3-3) L 06/17/18 06:27 Sodium 140 mmol/L (136-145) 06/17/18 06:27 Potassium 3.6 mmol/L (3.5-5.1) 06/17/18 06:27 Chloride 108 mmol/L (98-107) H 06/17/18 06:27 Carbon Dioxide 22.3 mmol/L (21.0-32.0) 06/17/18 06:27 Anion Gap 9.7 mmol/L (3-11) 06/17/18 06:27 BUN 38 mg/dL (7-18) H 06/17/18 06:27 Creatinine 2.34 mg/dL (0.70-1.30) H 06/17/18 06:27 Estimated GFR/1.73 m2 28.67 (mL/min/1.73m2) 06/17/18 06:27 Glucose 187 mg/dL (70-100) H 06/17/18 06:27 Lactate 1.1 mmol/l (0.6-1.4) 06/14/18 13:43 Calcium 8.2 mg/dL (8.5-10.1) L 06/17/18 06:27 Magnesium 1.7 mg/dL (1.8-2.4) L 06/17/18 06:27 Iron 52 ug/dL (50-175) 06/11/18 06:15 TIBC 217 ug/dL (250-450) L 06/11/18 06:15 Transferrin % Sat 24 % (20-55) 06/11/18 06:15 Ferritin 140 ng/mL (8-388) 06/11/18 06:15 Total Bilirubin 0.3 mg/dL (0.2-1.0) 06/08/18 10:00 AST 12 U/L (15-37) L 06/08/18 10:00 ALT 15 U/L (12-78) 06/08/18 10:00 Alkaline Phosphatase 310 U/L (46-116) H 06/08/18 10:00 Troponin I 0.05 ng/mL (0.00-0.06) 06/08/18 19:55 C-Reactive Protein 0.11 mg/dL (0.0-0.3) 06/16/18 06:14 Total Protein 7.6 g/dL (6.4-8.2) 06/08/18 10:00 Albumin 2.9 g/dL (3.4-5.0) L 06/08/18 10:00 Lipase 130 U/L (73-393) 06/08/18 10:00 Vitamin B12 1315 pg/mL (193-986) H 06/11/18 06:15 Folate > 20.0 ng/mL (8.6-20.0) H 06/11/18 06:15 TSH 0.26 uIU/mL (0.358-3.74) L 06/11/18 06:15 Urine Color Yellow (Yellow) 06/08/18 13:30 Urine Clarity Cloudy 06/08/18 13:30 Urine pH 5.5 (5-8) 06/08/18 13:30 Ur Specific [place] 1.020 (1.005-1.025) 06/08/18 13:30 Urine Protein 100 mg/dL (Negative) H 06/08/18 13:30 Urine Ketones Negative mg/dL (Negative) 06/08/18 13:30 Urine Blood Small (Negative) H 06/08/18 13:30 Urine Nitrite Negative (Negative) 06/08/18 13:30 Urine Bilirubin Negative (Negative) 06/08/18 13:30 Urine Urobilinogen 0.2 EU/dL (Up TO 0.2) 06/08/18 13:30 Ur Leukocyte Esterase Moderate (Negative) H 06/08/18 13:30 Urine RBC Not Applicable 06/08/18 13:30 Urine WBC >50 HPF (0-5) 06/08/18 13:30 Ur Epithelial Cells Not Applicable 06/08/18 13:30 Urine Crystals Not Applicable 06/08/18 13:30 Urine Bacteria Not Applicable 06/08/18 13:30 Urine Mucus Not Applicable 06/08/18 13:30 Ur Culture Indicated? Yes 06/08/18 13:30 Urine Glucose Negative mg/dL (Negative) 06/08/18 13:30 Vancomycin Trough 15.2 ug/mL (10.0-20.0) 06/09/18 06:15 Organism ID Status (see note) 06/12/18 14:27 Yeast Id Source (see note) 06/12/18 14:27 Yeast Organism Id (see note) 06/12/18 14:27 Yeast Susceptibility Cancelled 06/12/18 14:27
[2018-06-17] MEDS: Gabapentin 100 MG CAP PO (19:39)
[2018-06-17 22:10] LABS: Vancomycin, Trough 20.9 ug/mL (10.0-20.0)
[2018-06-17] MEDS: Insulin Glargine 300 UNITS/3 ML PEN 10 UNITS SC (22:24)
--- NOTE | 2018-06-17 23:33 | NUR.NOTE ---
Nursing Note: 3164 This nurse called [facility] to consult about pending 2200 Vancomycin dose in light of Vanco trough high value. Pharmacy will review and and call back with advice as to how to proceed. Oncoming nurse Greyson Umanzor aware.
[2018-06-18] VITALS (20 sets, daily range): BP systolic 137–155; BP diastolic 65–78; PULSE 47–80; RESP 13–21; TEMP 35.9–36.4; O2SAT 97
[2018-06-18] MEDS: traZODone 50 MG TAB PO ×2 (00:52→21:59)
[2018-06-18] MEDS: Magnesium Chloride 64 MG TABCR PO ×3 (00:52→21:59)
[2018-06-18] MEDS: Melatonin 3 MG TAB 6 MG PO ×2 (00:52→21:59)
[2018-06-18] MEDS: risperiDONE 1 MG TAB 3 MG PO ×2 (00:53→21:59)
[2018-06-18] MEDS: Sodium Bicarbonate 650 MG TAB PO ×5 (02:15→20:10)
[2018-06-18] MEDS: Acetaminophen 325 MG TAB 650 MG PO ×4 (02:15→18:35)
[2018-06-18] MEDS: Normal Saline Flush 10 ML SYR IVP ×2 (02:20→10:08)
[2018-06-18] MEDS: Hydrocortisone SOD SUC. 100 MG VIAL 50 MG IVP (02:20)
[2018-06-18] MEDS: PIPERACILLIN/TAZO 3.375 GM in Normal Saline 50 ML IVPB ×3 (04:10→16:54)
[2018-06-18] MEDS: Levothyroxine 25 MCG TAB PO (06:26)
--- NOTE | 2018-06-18 06:42 | PT.INPN ---
Date of service: 06/16/18 Time of Service: 11:40 PT Notes Inpatient Physical Therapy Progress Note Date: 06/16/2018 Dates of Service: 06/09/2018 through 06/16/2018 PRECAUTIONS: Fall. Standard. Per grease machine worker order on 06/15/2018, patient is to ambulate only with diabetic shoes in order to facilitate healing of diabetic foot ulcers. SUBJECTIVE: Patient refused two attempts today initiating physical therapy session due to fatigue and lack of motivation. Nurse is aware of said refusal and assisted with rationalizing with patient about the continued benefits of PT participation. Patient remained unwilling to cooperate today. The following is a summary of physical therapy intervention provided to patient on the duration of dates listed above. OBJECTIVE: Patient seen lying in bed. Bilateral TEDS on. PAIN: Patient0/10 BED MOBILITY/TRANSFERS Rolling L/R: supervision Supine-sit: supervision Sit-supine: supervision Sit-stand: SBA Stand-sit: SBA Bed-Chair: SBA Chair-bed: SBA GAIT Assistive Device: FWW Weight bearing: WBAT Assist: SBA Distance: 30 feet Deviation: reported knee and calf discomfort with ambulation activity with PTAs, decrreased step height and length, decreased tanya THEREX: With PTAs, patient was able to complete bed level exercises as indicated in exercise flowsheet Assessment: Patient is a 58 year old male referred to physical therapy services with the diagnosis of urinary tract infection, atrial flutter, UTI with sepsis, acute kidney injury in setting of chronic kidney disease, hyponatremia, lactic acidosis, and dehydration. Patient presents with clinical signs and symptoms consistent with reduced mobility related to acute medical issues. Patient does have chronic mobility deficits, and resides in a long-term care facility, where he requires assistance with all ambulation and self-care. PT goals will be targeted at maximizing patient's mobility and strength to allow for safe transition back to long-term care facility. He currently demonstrates the following impairment level findings: 1. Decreased lower extremity strength 2. Decreased upper extremity strength 3. Decreased activity tolerance 4. Decreased range of motion bilateral knees and hands 5. Decreased balance skills Impairments are contributing to the following functional limitations: 1. Unable to perform ambulation 2. Patient requiring assistance with bed mobility 3. Decreased activity tolerance 4. Decreased safety with transfers 5. Dependence with transfer task performance Patient is assessed as Moderate 56178 complexity based on the following: History: Reduced mobility due to weakness, balance issues related to UTI recurrence and 57-year-old male with complicated medical history and gradual decline in independence and mobility. Patient has been residing in a long-term care facility for the past 5 years, and demonstrates limited mobility in that setting. He also struggles with multiple areas of joint pain related to RA as well as with history of significant cardiac and GI issues as noted above under past medical history. Examination: Functional limitations and underlying impairments resulting to an AMP?PAC score 12 and an equivalent CMS score of 67% Presentation: Unstable Decision Making: Moderate complexity Goals: Goals X1 week 1. Supine-Sit independent 2. Sit-Supine independent 3. Sit-Stand independent 4. Stand-Sit independent 5. Bed-Chair independent 6. Chair-Bed independent 7. Independent gait on level surface with use of least restrictive device for at least 100 feet without report of pain nor dyspnea 8. Good static and dynamic standing balance/tolerance Plan of Care/Treatment Plan: 1-2x/day, 7 days/week x 1 week. Plan of care has been reviewed with the AUDIO VISUAL AIDS DIRECTOR providing the service under Physical Therapy direction. Continue with Physical Therapy intervention for strengthening, bed mobility, transfers, gait, balance training, use of assistive device. DISCHARGE RECOMMENDATIONS: Return to the [facility] when medically stable. Will highly benefit from continued skilled PT services at the SNF to establish a functional program and reduce fall risk. TREATMENT CODE/TIME: SANDRINE Thank you for this referral. Jean Gamez, PT, DPT, CLT [facility]
[2018-06-18 06:56] LABS: Abs Immature Grans 0.24 k/cumm (0.0-0.09); HCT 32.2 % (40.0-50.0); HGB 10.4 g/dL (13.5-17.5); Mean Corp. HGB Concentration 32.3 g/dL (32.0-36.0); Mean Corpuscular Hemoglobin 23.8 pg (27.0-33.0); Mean Corpuscular Volume 73.7 fL (80-95); Mean Platelet Volume 9.5 fL (8.0-11.0); Platelet Count 381 x1000/uL (130-400); RBC 4.37 m/cumm (4.50-6.00); RBC Distribution Width 17.5 % (11.8-14.1); White Blood Cell Count 11.29 k/cumm (4.4-10.8)
[2018-06-18 07:00] LABS: Anion Gap 8.3 mmol/L (3-11); BUN 41 mg/dL (7-18); CO2 24.7 mmol/L (21.0-32.0); CREATININE 2.16 mg/dL (0.70-1.30); Calcium 8.2 mg/dL (8.5-10.1); Chloride 109 mmol/L (98-107); Estimated GFR 31.45 (mL/min/1.73m2); Glucose 120 mg/dL (70-100); Magnesium 1.8 mg/dL (1.8-2.4); Potassium 3.1 mmol/L (3.5-5.1); Sodium 142 mmol/L (136-145)
[2018-06-18 07:41] LABS: Absolute Lymphocyte Count 0.56 k/cumm (1.2-3.4); Absolute Monocyte Count 0.45 k/cumm (0.11-0.7); Absolute Neutrophil Count 10.16 k/cumm (1.2-6.7)
[2018-06-18 07:42] LABS: Burr Cells (echinocyte) 2+; Diff Comment Manual Differential; Hypochromasia 2+; Microcytosis 3+; Ovalocytes 2+; Schistocytes 1+; Tear Drop Cells 2+
--- NOTE | 2018-06-18 09:37 | NUR.NOTE ---
Interventional radiology contacted, spoke with Joellen Barnett, nurse practitioner. I informed her of the sudden drop in drainage from his gallbladder drain. Joellen Barnett reports that it is normal for the drainage to come and go she also states that in February this pt's gallbladder drain was wide open and they felt that the gallbladder drain could be capped and possibly removed. This patient [facility] for a follow up and possible removal of the gallbladder drain. This patient was a no show for this follow up appointment. Joellen Barnett nurse practitioner reports it would be okay to gently flush the drain with 5-10cc of Normal Saline. Joellen states that if patient is experiencing RUQ pains and having elevated LFT's that would be a suspician for biliary drain blockage but otherwise the drainage will normally come and go. Pt is pain free at this time. There has been no reports of RUQ pain.
[2018-06-18] MEDS: Folic Acid 1 MG TAB PO (10:08)
[2018-06-18] MEDS: Pantoprazole 40 MG VIAL IVP (10:08)
[2018-06-18] MEDS: Furosemide 40 MG TAB PO ×2 (10:09→15:12)
[2018-06-18] MEDS: Fluconazole 100 MG TAB 200 MG PO (10:09)
[2018-06-18] MEDS: Venlafaxine 37.5 MG CAPCR 75 MG PO (10:09)
[2018-06-18] MEDS: Apixaban 5 MG TAB PO ×2 (10:09→20:09)
[2018-06-18] MEDS: Multivitamin w/Minerals TAB 1 TAB PO (10:10)
[2018-06-18] MEDS: Ferrous Sulfate 325 MG TAB PO ×2 (10:10→20:09)
[2018-06-18] MEDS: Cyanocobalamin 500 MCG TAB 1000 MCG PO (10:10)
[2018-06-18] MEDS: predniSONE 20 MG TAB 40 MG PO (10:10)
[2018-06-18] MEDS: Gabapentin 100 MG CAP PO ×3 (10:10→20:09)
[2018-06-18] MEDS: Ascorbic Acid 500 MG TAB 250 MG PO ×2 (10:10→20:09)
[2018-06-18] MEDS: Potassium Chloride 20 MEQ TABCR 40 MEQ PO (10:10)
[2018-06-18] MEDS: Lactobacillus Acidophilus CAP 1 CAP PO ×3 (10:10→20:09)
[2018-06-18] MEDS: Terazosin 2 MG CAP 4 MG PO ×2 (10:11→20:10)
[2018-06-18] MEDS: amLODIPine 10 MG TAB PO (10:11)
[2018-06-18] MEDS: hydrALAZINE 10 MG TAB PO ×3 (10:11→20:10)
[2018-06-18] MEDS: Collagenase 30 GM TUBE TP (10:12)
--- NOTE | 2018-06-18 10:18 | PDOC.CMPRO ---
Care Management Progress Note S/O-Met with Brendan today. He is sitting up in chair when CM enters, and easily engages in discussion re plans. Advised that MD plans to have him return to the [facility] tomorrow. Spoke with the [facility]-they are requesting that his IV vanco order be timed for 9 AM administration. Spoke with Carol in pharmacy and she will adjust timing of tomorrows dose to allow for 9 am dose on Friday at the [facility]. They request that orders be sent as early in am as possible so they can order the medications. The [facility] no longer has a van so he will have to go via RCT. Contacted [facility] and arranged w/c van for 11 am tomorrow. A-58 yo man admitted with abdominal pain and single episode of vomiting. P-Transfer back to the [facility] tomorrow via [facility] w/c van at 11 am.
[2018-06-18] MEDS: Insulin Glargine 300 UNITS/3 ML PEN 65 UNITS SC (10:42)
[2018-06-18] MEDS: Fluticasone NASAL SPRAY 16 GM BTL NS (10:43)
--- NOTE | 2018-06-18 11:18 | OT.INTREAT ---
Date of service: 06/18/18 Time of Service: 10:25 Occupational Therapy Notes Occupational Therapy Inpatient Treatment Note Date: 06/18/18 PRECAUTIONS: NPO, Fall Risk SUBJECTIVE: Pt was sitting in chair when OT arrived. He is discouraged about being NPO. He is agreeable to OT session and states that he might be returning to the [facility] in the next couple days. OBJECTIVE: PAIN:no c/o pain. BATHING: Upper Body: Sitting in chair max (A) set up (I) washing face, min vc for washing UE and forehead. Pt was able to wash lower abdomen with min (A) chest. Max (A) hair. DRESSING: Upper Extremity: Mod (A) [facility] gown in sitting d/t limited (B) UE ROM GROOMING: Sitting, max (A) hair ASSESSMENT/PLAN: Pt was feeling down today with NPO orders. He functionally was receptive to use of (B) UE during bathing and dressing routine. He functionally demonstrated fair technique. He states that he was able to walk with MOTOR HOTEL MANAGER prior to OT arrival which he states he is tired from but that it felt good. Pts overall functional tolerance seems to be progressing. TREATMENT CODES/TIME: 10062, 10 minutes (10:25) Suzanne Javier OTR/[facility]
--- NOTE | 2018-06-18 11:25 | OTTR_ITS ---
Date of service: 06/18/18 Time of Service: 10:25 Occupational Therapy Notes Occupational Therapy Inpatient Treatment Note Date: 06/18/18 PRECAUTIONS: NPO, Fall Risk SUBJECTIVE: Pt was sitting in chair when OT arrived. He is discouraged about being NPO. He is agreeable to OT session and states that he might be returning to the [facility] in the next couple days. OBJECTIVE: PAIN:no c/o pain. BATHING: Upper Body: Sitting in chair max (A) set up (I) washing face, min vc for washing UE and forehead. Pt was able to wash lower abdomen with min (A) chest. Max (A) hair. DRESSING: Upper Extremity: Mod (A) [facility] gown in sitting d/t limited (B) UE ROM GROOMING: Sitting, max (A) hair ASSESSMENT/PLAN: Pt was feeling down today with NPO orders. He functionally was receptive to use of (B) UE during bathing and dressing routine. He functionally demonstrated fair technique. He states that he was able to walk with MANIFEST/ORDER ORGANIZER PRINT ORDERS prior to OT arrival which he states he is tired from but that it felt good. Pts overall functional tolerance seems to be progressing. TREATMENT CODES/TIME: 41777, 10 minutes (10:25) Suzanne Javier OTR/[facility]
--- NOTE | 2018-06-18 14:57 | CHAPLAIN ---
Brendan was sitting up in his chair when I visited. He said he may be transferred back to the [facility] today or tomorrow. He enjoys being here and said he is okay with waiting until tomorrow. He currently isn't allowed to have anything by mouth, and said he is thirsty. Brendan talked about his dog, that his nephew has had for the past few years, and how much he would like to see the dog again.
[2018-06-18] MEDS: cloNIDine 0.1 MG TAB 0.2 MG PO ×2 (15:12→20:10)
--- NOTE | 2018-06-18 15:14 | CMPROGNOTE_ITS ---
Care Management Progress Note S/O-Met with Brendan today. He is sitting up in chair when CM enters, and easily engages in discussion re plans. Advised that MD plans to have him return to the [facility] tomorrow. Spoke with the [facility]-they are requesting that his IV vanco order be timed for 9 AM administration. Spoke with Carol in pharmacy and she will adjust timing of tomorrows dose to allow for 9 am dose on Friday at the [facility]. They request that orders be sent as early in am as possible so they can order the medications. The [facility] no longer has a van so he will have to go via [facility]. Contacted [facility] and arranged w/c van for 11 am tomorrow. A-58 yo man admitted with abdominal pain and single episode of vomiting. P-Transfer back to the [facility] tomorrow via [facility] w/c van at 11 am.
--- NOTE | 2018-06-18 15:41 | PT.INTREAT ---
Date of service: 06/18/18 Time of Service: 15:41 PT Notes Inpatient Physical Therapy Treatment Note [facility] Date: 06/18/2018 PRECAUTIONS: Full SUBJECTIVE: Brendan complains of B LE discomfort and feelings of weakness with weight bearing today. He also states that he isn't feeling well today. OBJECTIVE: PAIN: Patient c/o B LE discomfort with weight bearing BED MOBILITY/TRANSFERS Supine-sit: I Sit-Supine: I Sit-stand: S Stand-sit: S GAIT Assistive Device: FWW Weight bearing: Full Assist: SBA Distance: 30' in a.m.; 4 side steps to L in p.m. Deviation: C/o R LE pain, decreased tanya THEREX: Patient completed an upper and lower extremity strengthening program, as per flow sheet. He also completed functional [id number] exercise at [facility]. Static standing 5x30 seconds with FWW support and SBA. ASSESSMENT: Patient tolerated sessions with complaints of B LE pain with weight bearing. Patient was able to tolerate a progression in ther ex program today. Patient would benefit from continued gait training at as well as strengthening for improved activity tolerance as well as improved ability to perform daily functional tasks. PLAN: Continue with PT's POC TREATMENT CODE/TIME: Session 1: 30 minutes; 71226, 73428 Session: 20 minutes; [id number]
[2018-06-18] MEDS: Insulin Aspart 300 UNITS/3 ML PEN SC ×2 (17:15→21:59)
--- NOTE | 2018-06-18 19:05 | PGE_ITS ---
Date of Service Date of service: 06/18/18 Time of Service: 18:48 Subjective Patient reports: no new complaints Interval history since last seen: Brendan is seen at bedside. He is on the [facility] floor. He has no complaints of pain at this time. Indicates he is feeling much better and is looking forward to returning to the [facility]. Vitals BP 151/69 pulse 64 today's labs show WBC of 11.29 hemoglobin 10.4 hematocrit 32.2 Physical examination: He has strong dorsalis pedis and posterior tibial pulses. All pulses are graded as 2/4.. This has significantly improved from his previous exam where I could not palpate pulses. This is likely due to an improvement in his cardiac rhythm, resolution of his A. fib, better hydration. Wounds on his right foot include a chronic ulcer at the IPJ level of the hallux which is markedly deformed being laterally rotated through the IPJ. This wound is been present for at least a year and a half and has never shown any significant signs of resolving. He has some shallow callus formations on the s econd and fourth metatarsal heads but these are free of any redness drainage or signs of infection. His left foot also has a chronic wound of the IPJ of the hallux but this 1 does look like it is making an attempt to heal. There is some granulation tissue there is no active sign of infection. He does have a wound which was first noted earlier this week on Friday under the left second metatarsal head which also appears clean. It is still partial thickness and there is no significant granular activity at this time. Nevertheless there is no active sign of infection and the wound does not probe to any bony structure. He remains on vancomycin and Zosyn. Impressions: Chronic ulcerations right hallux Chronic ulceration left hallux Ulceration plantar aspect left second metatarsal head Plan: The podiatry perspective, Brendan appears stable and should be able to return to the [facility] tomorrow I will discontinue the collagenase Santyl on his wounds and replace it with Iodosorb. It is a central that he wears his diabetic shoe gear with any weightbearing activities and that he avoids undue pressure on his foot when he is sitting in his bed as he will continue to ulcerate and fail to thrive if these measures are not adhered to. I had previously sought a vascular consult but based on today's strong pulsations and warm feet I do not believe it will be necessary. If Brendan continues to remain stable, I would consider amputating the right great toe a week from Friday. This can be done under local anesthesia as an outpatient. I will be happy to continue to follow him as needed. Objective Objective Clinical Data: Abnormal lab results 06/17/18 06/18/18 06/18/18 Range/Units 21:35 06:32 06:32 WBC 11.29 H (4.4-10.8) k/cumm RBC 4.37 L (4.50-6.00) m/cumm Hgb 10.4 L (13.5-17.5) g/dL Hct 32.2 L (40.0-50.0) % MCV 73.7 L (80-95) fL MCH 23.8 L (27.0-33.0) pg RDW 17.5 H (11.8-14.1) % Absolute Neutrophils 10.16 H (1.2-6.7) k/cumm Absolute Lymphocytes 0.56 L (1.2-3.4) k/cumm Potassium 3.1 L (3.5-5.1) mmol/L Chloride 109 H (98-107) mmol/L BUN 41 H (7-18) mg/dL Creatinine 2.16 H (0.70-1.30) mg/dL Glucose 120 H (70-100) mg/dL Calcium 8.2 L (8.5-10.1) mg/dL Vancomycin Trough 20.9 H* (10.0-20.0) ug/mL Vital Signs Temperature 35.9 C L 06/18/18 09:05 Temperature Source Tympanic 06/18/18 09:05 Pulse 64 06/18/18 18:02 Pulse Rhythm Regular 06/14/18 00:05 Pulse 67 06/18/18 18:00 Respiratory Rate 21 06/18/18 16:00 Respiratory Effort 06/18/18 17:00 Respiratory Depth Normal 06/18/18 17:00 Respiratory Pattern Normal 06/18/18 17:00 Blood Pressure 151/69 H 06/18/18 18:02 Blood Pressure Mean 85 06/18/18 18:02 Blood Pressure Position Supine 06/17/18 12:42 Pulse Oximetry 97 06/18/18 15:26 Oxygen Delivery Method Room Air 06/18/18 09:05 Oxygen Flow Rate 0 06/18/18 09:05 Pain Level 0 06/18/18 18:12 Comment 06/18/18 09:05 Intake & Output 06/17/18 06/18/18 06/18/18 18:59 06:59 18:59 Intake Total 2305 / 2965 660 / 2965 215 / 215 Output Total 2075 / 4575 2500 / 4575 3005 / 3005 Balance 230 / -1610 -1840 / -1610 -2790 / -2790 Weight 95.9 kg Intake: IV 100 / 400 300 / 400 50 / 50 Oral 2080 / 2440 360 / 2440 150 / 150 Injectate 125 / 125 0 / 125 15 / 15 Gallbladder drain 125 / 125 0 / 125 15 / 15 Output: Drainage 0 / 0 305 / 305 Gallbladder drain 0 / 0 305 / 305 Urine 1700 / 3400 1700 / 3400 2100 / 2100 Stool 375 / 1175 800 / 1175 600 / 600 Other: Urine Color Yellow Pale Pale Yellow Yellow Urine Appearance Clear Clear Clear Cloudy Urine Odor None None Comment Voiding in urinal without difficulty Stool Occult Blood Negative Stool Size Large Stool Characteristics Soft Brown Voiding Methods Urinal Urinal Urinal Laboratory Results WBC 11.29 k/cumm (4.4-10.8) H 06/18/18 06:32 RBC 4.37 m/cumm (4.50-6.00) L 06/18/18 06:32 Hgb 10.4 g/dL (13.5-17.5) L 06/18/18 06:32 Hct 32.2 % (40.0-50.0) L 06/18/18 06:32 MCV 73.7 fL (80-95) L 06/18/18 06:32 MCH 23.8 pg (27.0-33.0) L 06/18/18 06:32 MCHC 32.3 g/dL (32.0-36.0) 06/18/18 06:32 RDW 17.5 % (11.8-14.1) H 06/18/18 06:32 Plt Count 381 x1000/uL (130-400) 06/18/18 06:32 MPV 9.5 fL (8.0-11.0) 06/18/18 06:32 Immature Gran % See Differential 06/18/18 06:32 Neutrophils % 90.0 06/18/18 06:32 Band Neutrophils % 1.0 % 06/16/18 06:24 Lymphocytes % 5.0 06/18/18 06:32 Atypical Lymphs % Cancelled 06/15/18 06:45 Monocytes % 4.0 06/18/18 06:32 Eosinophils % 0.0 06/18/18 06:32 Basophils % 0.0 06/18/18 06:32 Metamyelocytes % 1.0 % 06/18/18 06:32 Myelocytes % 1.0 % 06/16/18 06:24 Promyelocytes % 0 % 06/10/18 06:30 Absolute Neutrophils 10.16 k/cumm (1.2-6.7) H 06/18/18 06:32 Absolute Lymphocytes 0.56 k/cumm (1.2-3.4) L 06/18/18 06:32 Absolute Monocytes 0.45 k/cumm (0.11-0.7) 06/18/18 06:32 Absolute Eosinophils 0.00 k/cumm (0.0-0.7) 06/18/18 06:32 Absolute Basophils 0.00 k/cumm (0.0-0.2) 06/18/18 06:32 Nucleated RBCs 1 /100WBC 06/08/18 10:00 Differential Comment Manual differential 06/18/18 06:32 Other Cell Type 0 06/10/18 06:30 RBC Morphology See below 06/18/18 06:32 Polychromasia Present 06/16/18 06:24 Hypochromasia 2+ 06/18/18 06:32 Poikilocytosis 2+ 06/16/18 06:24 Basophilic Stippling Present 06/16/18 06:24 Anisocytosis 2+ 06/16/18 06:24 Microcytosis 3+ 06/18/18 06:32 Macrocytosis Cancelled 06/15/18 06:45 Spherocytes Cancelled 06/15/18 06:45 Target Cells Cancelled 06/15/18 06:45 Tear Drop Cells 2+ 06/18/18 06:32 Ovalocytes 2+ 06/18/18 06:32 Stomatocytes Cancelled 06/15/18 06:45 Glover-R[place] Bodies Cancelled 06/15/18 06:45 Sathya Cells 2+ 06/18/18 06:32 Acanthocytes (Spur) Cancelled 06/15/18 06:45 Schistocytes 1+ 06/18/18 06:32 VBG pH 7.28 (7.32-7.43) L 06/17/18 06:27 VBG pCO2 44 mm/Hg (34-47) 06/17/18 06:27 VBG pO2 77 mm/Hg (28-44) H 06/17/18 06:27 VBG HCO3 21 mmol/L (22-28) L 06/17/18 06:27 VBG Total CO2 20 mmol/L (22-29) L 06/17/18 06:27 VBG O2 Saturation 96 % (70-80) H 06/17/18 06:27 VBG Base Excess -6.0 mmol/L (-3-3) L 06/17/18 06:27 Sodium 142 mmol/L (136-145) 06/18/18 06:32 Potassium 3.1 mmol/L (3.5-5.1) L 06/18/18 06:32 Chloride 109 mmol/L (98-107) H 06/18/18 06:32 Carbon Dioxide 24.7 mmol/L (21.0-32.0) 06/18/18 06:32 Anion Gap 8.3 mmol/L (3-11) 06/18/18 06:32 BUN 41 mg/dL (7-18) H 06/18/18 06:32 Creatinine 2.16 mg/dL (0.70-1.30) H 06/18/18 06:32 Estimated GFR/1.73 m2 31.45 (mL/min/1.73m2) 06/18/18 06:32 Glucose 120 mg/dL (70-100) H 06/18/18 06:32 Lactate 1.1 mmol/l (0.6-1.4) 06/14/18 13:43 Calcium 8.2 mg/dL (8.5-10.1) L 06/18/18 06:32 Magnesium 1.8 mg/dL (1.8-2.4) 06/18/18 06:32 Iron 52 ug/dL (50-175) 06/11/18 06:15 TIBC 217 ug/dL (250-450) L 06/11/18 06:15 Transferrin % Sat 24 % (20-55) 06/11/18 06:15 Ferritin 140 ng/mL (8-388) 06/11/18 06:15 Total Bilirubin 0.3 mg/dL (0.2-1.0) 06/08/18 10:00 AST 12 U/L (15-37) L 06/08/18 10:00 ALT 15 U/L (12-78) 06/08/18 10:00 Alkaline Phosphatase 310 U/L (46-116) H 06/08/18 10:00 Troponin I 0.05 ng/mL (0.00-0.06) 06/08/18 19:55 C-Reactive Protein 0.11 mg/dL (0.0-0.3) 06/16/18 06:14 Total Protein 7.6 g/dL (6.4-8.2) 06/08/18 10:00 Albumin 2.9 g/dL (3.4-5.0) L 06/08/18 10:00 Lipase 130 U/L (73-393) 06/08/18 10:00 Vitamin B12 1315 pg/mL (193-986) H 06/11/18 06:15 Folate > 20.0 ng/mL (8.6-20.0) H 06/11/18 06:15 TSH 0.26 uIU/mL (0.358-3.74) L 06/11/18 06:15 Urine Color Yellow (Yellow) 06/08/18 13:30 Urine Clarity Cloudy 06/08/18 13:30 Urine pH 5.5 (5-8) 06/08/18 13:30 Ur Specific [place] 1.020 (1.005-1.025) 06/08/18 13:30 Urine Protein 100 mg/dL (Negative) H 06/08/18 13:30 Urine Ketones Negative mg/dL (Negative) 06/08/18 13:30 Urine Blood Small (Negative) H 06/08/18 13:30 Urine Nitrite Negative (Negative) 06/08/18 13:30 Urine Bilirubin Negative (Negative) 06/08/18 13:30 Urine Urobilinogen 0.2 EU/dL (Up TO 0.2) 06/08/18 13:30 Ur Leukocyte Esterase Moderate (Negative) H 06/08/18 13:30 Urine RBC Not Applicable 06/08/18 13:30 Urine WBC >50 HPF (0-5) 06/08/18 13:30 Ur Epithelial Cells Not Applicable 06/08/18 13:30 Urine Crystals Not Applicable 06/08/18 13:30 Urine Bacteria Not Applicable 06/08/18 13:30 Urine Mucus Not Applicable 06/08/18 13:30 Ur Culture Indicated? Yes 06/08/18 13:30 Urine Glucose Negative mg/dL (Negative) 06/08/18 13:30 Vancomycin Trough 20.9 ug/mL (10.0-20.0) H* 06/17/18 21:35 Organism ID Status (see note) 06/12/18 14:27 Yeast Id Source (see note) 06/12/18 14:27 Yeast Organism Id (see note) 06/12/18 14:27 Yeast Susceptibility Cancelled 06/12/18 14:27
--- NOTE | 2018-06-18 19:25 | NUR.NOTE ---
report given by Kimberly Castillo RN to Yolanda Meza RN . pt transported to med/surg via bed. pt in room 214. no questions at this time. pt given call murphy and oriented to room. pt alert and oriented.
--- NOTE | 2018-06-18 19:50 | W.PM.PROGNOT ---
Date of Service Date of service: 06/18/18 Time of Service: 16:30 Assessment and Plan (1) Atrial flutter, paroxysmal: Current visit: Yes Status: Acute Converted to NSR, now bradycardic. Metoprolol d/c'ed. Titrate clonidine down. Atrial flutter is a new diagnosis, likely precipitated by dehydration and potential infection. However, the patient does have a history of untreated JESSICA, which is likely a big contributor. No evidence of intracardiac thrombi. Continue eliquis. Will monitor HR on decreased dose of metoprolol x 24 more hours. If it has to be held more than it is given, will d/c. H/H is stable on eliquis, which is reassuring, even though there is chronic hemoccult positivity due to Jonathon's. Continue close monitoring of H/H. Continue tele. (2) Elevated troponin I level: Current visit: Yes Status: Acute Minimal and equivocal, in setting of acute illness, dehydration, Atrial Flutter with rapid rate, and poor clearance due to JESUS superimposed on CKD. Troponin already normalized. No evidence of NSTEMI. (3) UTI (urinary tract infection): Current visit: Yes Status: Acute Evidence of Pyuria; c&S positive for yeast (not speciated). Finished fluconazole today. Await speciation of yeast, fungal cultures. Renal Ultrasound unremarkable. Downing discontinued. Consider potential diagnosis of prostatitis as well if repeat urinalysis does not clear. 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 This is s/p Debridement on 06/15/18. Abx changed to augmentin after 5 days of vancomycin/zosyn. Will have to be followed up as outpatient. Will need vascular follow up at [facility]. (S/p debridement on 03/06 with resection of the 5th MPJ - culture of the tissue grew MRSA and Proteus Mirabilis. Osteo was not confirmed by biopsy. He received an approximate 2 week course of antibiotics for this.) Qualifiers: Laterality: left Non-pressure ulcer stage: limited to breakdown of skin Qualified Code(s): E11.621 - Type 2 diabetes mellitus with foot ulcer; L97.521 - Non-pressure chronic ulcer of other part of left foot limited to breakdown of skin (5) Diabetic foot ulcer: Current visit: No Status: Chronic As above Additionally, R great toe will be amputated as a routine scheduled procedure next week. (6) Adrenal insufficiency: Current visit: No Status: Chronic Due to long-term steroid use. Was recently switched from prednisone to Hydrocortisone. Now with severe metabolic acidosis, slow to improve. Bicarb decreased. Steroids changed to PO. Knowing Brendan, He needs to be an extremely slow steroid taper (taper down by 5 mg/day, for example) to his baseline dose of 10 mg PO daily. (7) Chronic cholecystitis: Current visit: No Status: Chronic Drain functioning well. Has been deemed a poor surgical candidate. F/u with general surgery as outpatient. (8) Acute on chronic kidney failure: Current visit: Yes Status: Acute Prerenal, Cr better - will continue to trend, but no changes to meds at this time other than metoprolol (it is possible he is hypoperfusing due to bradycardia). Qualifiers: Acute renal failure type: unspecified Chronic kidney disease stage: stage 4 (severe) Qualified Code(s): N17.9 - Acute kidney failure, unspecified; N18.4 - Chronic kidney disease, stage 4 (severe) (9) Hyperkalemia: Current visit: No Status: Resolved Continue renal diet. (10) MRSA bacteremia: Current visit: No Status: Resolved Prior to this admission, already treated; Vancomycin completed. Repeat Blood Culture obtained, NGTD (including from PICC). (11) Poorly controlled type 2 diabetes mellitus with circulatory disorder: Current visit: No Status: Chronic No change to current insulin doses. (12) Anemia: Current visit: No Status: Chronic Microcytic, with Heme + stools. Iron studies with low TIBC, but inappropriately normal Ferritin - potential for Anemia of Chronic Disease with superimposed blood loss. B12 and FA normal, but with low TSH as well. H/H remains stable. Change PPI to PO. Monitor carefully on anticoagulation. (13) Hypothyroidism: Current visit: No Status: Chronic Low TSH - in setting of acute illness. However, patient with substantial weight loss over the course of the last 6 months and did present to the hospital with rapid Aflutter. Synthroid dose decreased; Repeat TSH in 4-6 weeks. (14) DVT prophylaxis: Current visit: Yes Status: Acute On therapeutic eliquis (15) Advance directive on file: Current visit: Yes Status: Acute Full Code. Vascular follow up as outpatient Will also need OMFS follow up at [facility], if available, as outpatient and general surgery follow up for the chronic cholecystitis. The patient may be a significantly smaller surgical risk at this time as he was previously. He would benefit from endocrine follow up as well. (16) Metabolic acidosis: Current visit: Yes Status: Acute s/p bicarb gtt. Usually happens in setting of acute adrenal insufficiency with this patient. VBG better. Continue PO bicarb. Subjective Interval history since last seen: Mr Corley denies dizziness, chest pain, shortness of breath, nausea, vomiting. Evaluated by Dr Ashford this evening. He is ok with the patient being transitioned to augmentin tonight and being discharged to the [facility] tomorrow. He is planning a scheduled amputation of his R great toe. Exam Narrative Exam Narrative: General: Very pleasant middle-aged male, NAD, A&Ox3, looks like he has more color in his face today HEENT: EOMI, MMM, poor dentition Heart: RRR, no m/r/g Lungs: CTAB GI: abdomen is soft, nontender, nondistended; ostomy/cholecystostomy drains Extremities: chronic venous stasis dermatitis, B feet in socks, dressed; +2 pedal pulses B, +1 BLE edema Objective Objective Clinical Data: Abnormal lab results 06/17/18 06/18/18 06/18/18 Range/Units 21:35 06:32 06:32 WBC 11.29 H (4.4-10.8) k/cumm RBC 4.37 L (4.50-6.00) m/cumm Hgb 10.4 L (13.5-17.5) g/dL Hct 32.2 L (40.0-50.0) % MCV 73.7 L (80-95) fL MCH 23.8 L (27.0-33.0) pg RDW 17.5 H (11.8-14.1) % Absolute Neutrophils 10.16 H (1.2-6.7) k/cumm Absolute Lymphocytes 0.56 L (1.2-3.4) k/cumm Potassium 3.1 L (3.5-5.1) mmol/L Chloride 109 H (98-107) mmol/L BUN 41 H (7-18) mg/dL Creatinine 2.16 H (0.70-1.30) mg/dL Glucose 120 H (70-100) mg/dL Calcium 8.2 L (8.5-10.1) mg/dL Vancomycin Trough 20.9 H* (10.0-20.0) ug/mL Vital Signs Temperature 35.9 C L 06/18/18 09:05 Temperature Source Tympanic 06/18/18 09:05 Pulse 64 06/18/18 18:02 Pulse Rhythm Regular 06/14/18 00:05 Pulse 67 06/18/18 18:00 Respiratory Rate 21 06/18/18 16:00 Respiratory Effort 06/18/18 17:00 Respiratory Depth Normal 06/18/18 17:00 Respiratory Pattern Normal 06/18/18 17:00 Blood Pressure 151/69 H 06/18/18 18:02 Blood Pressure Mean 85 06/18/18 18:02 Blood Pressure Position Supine 06/17/18 12:42 Pulse Oximetry 97 06/18/18 15:26 Oxygen Delivery Method Room Air 06/18/18 09:05 Oxygen Flow Rate 0 06/18/18 09:05 Pain Level 0 06/18/18 18:12 Comment 06/18/18 09:05 Intake & Output 06/17/18 06/18/18 06/18/18 23:59 11:59 23:59 Intake Total 1495 / 2965 825 / 875 50 / 875 Output Total 2725 / 3725 1915 / 4405 2490 / 4405 Balance -1230 / -760 -1090 / -3530 -2440 / -3530 Weight 95.9 kg Intake: IV 150 / 400 300 / 350 50 / 350 Oral 1220 / 2440 510 / 510 Injectate 125 / 125 15 / 15 Gallbladder drain 125 / 125 15 / 15 Output: Drainage 165 / 305 140 / 305 Gallbladder drain 165 / 305 140 / 305 Urine 2175 / 2400 1350 / 3100 1750 / 3100 Stool 550 / 1175 400 / 1000 600 / 1000 Other: Urine Color Yellow Yellow Pale Straw Yellow Urine Appearance Clear Clear Clear Cloudy Urine Odor None None Comment Voiding in urinal without difficulty Stool Occult Blood Negative Stool Size Large Stool Characteristics Soft Brown Voiding Methods Urinal Urinal Urinal Laboratory Results WBC 11.29 k/cumm (4.4-10.8) H 06/18/18 06:32 RBC 4.37 m/cumm (4.50-6.00) L 06/18/18 06:32 Hgb 10.4 g/dL (13.5-17.5) L 06/18/18 06:32 Hct 32.2 % (40.0-50.0) L 06/18/18 06:32 MCV 73.7 fL (80-95) L 06/18/18 06:32 MCH 23.8 pg (27.0-33.0) L 06/18/18 06:32 MCHC 32.3 g/dL (32.0-36.0) 06/18/18 06:32 RDW 17.5 % (11.8-14.1) H 06/18/18 06:32 Plt Count 381 x1000/uL (130-400) 06/18/18 06:32 MPV 9.5 fL (8.0-11.0) 06/18/18 06:32 Immature Gran % See Differential 06/18/18 06:32 Neutrophils % 90.0 06/18/18 06:32 Band Neutrophils % 1.0 % 06/16/18 06:24 Lymphocytes % 5.0 06/18/18 06:32 Atypical Lymphs % Cancelled 06/15/18 06:45 Monocytes % 4.0 06/18/18 06:32 Eosinophils % 0.0 06/18/18 06:32 Basophils % 0.0 06/18/18 06:32 Metamyelocytes % 1.0 % 06/18/18 06:32 Myelocytes % 1.0 % 06/16/18 06:24 Promyelocytes % 0 % 06/10/18 06:30 Absolute Neutrophils 10.16 k/cumm (1.2-6.7) H 06/18/18 06:32 Absolute Lymphocytes 0.56 k/cumm (1.2-3.4) L 06/18/18 06:32 Absolute Monocytes 0.45 k/cumm (0.11-0.7) 06/18/18 06:32 Absolute Eosinophils 0.00 k/cumm (0.0-0.7) 06/18/18 06:32 Absolute Basophils 0.00 k/cumm (0.0-0.2) 06/18/18 06:32 Nucleated RBCs 1 /100WBC 06/08/18 10:00 Differential Comment Manual differential 06/18/18 06:32 Other Cell Type 0 06/10/18 06:30 RBC Morphology See below 06/18/18 06:32 Polychromasia Present 06/16/18 06:24 Hypochromasia 2+ 06/18/18 06:32 Poikilocytosis 2+ 06/16/18 06:24 Basophilic Stippling Present 06/16/18 06:24 Anisocytosis 2+ 06/16/18 06:24 Microcytosis 3+ 06/18/18 06:32 Macrocytosis Cancelled 06/15/18 06:45 Spherocytes Cancelled 06/15/18 06:45 Target Cells Cancelled 06/15/18 06:45 Tear Drop Cells 2+ 06/18/18 06:32 Ovalocytes 2+ 06/18/18 06:32 Stomatocytes Cancelled 06/15/18 06:45 [place] Bodies Cancelled 06/15/18 06:45 [place] Cells 2+ 06/18/18 06:32 Acanthocytes (Spur) Cancelled 06/15/18 06:45 Schistocytes 1+ 06/18/18 06:32 VBG pH 7.28 (7.32-7.43) L 06/17/18 06:27 VBG pCO2 44 mm/Hg (34-47) 06/17/18 06:27 VBG pO2 77 mm/Hg (28-44) H 06/17/18 06:27 VBG HCO3 21 mmol/L (22-28) L 06/17/18 06:27 VBG Total CO2 20 mmol/L (22-29) L 06/17/18 06:27 VBG O2 Saturation 96 % (70-80) H 06/17/18 06:27 VBG Base Excess -6.0 mmol/L (-3-3) L 06/17/18 06:27 Sodium 142 mmol/L (136-145) 06/18/18 06:32 Potassium 3.1 mmol/L (3.5-5.1) L 06/18/18 06:32 Chloride 109 mmol/L (98-107) H 06/18/18 06:32 Carbon Dioxide 24.7 mmol/L (21.0-32.0) 06/18/18 06:32 Anion Gap 8.3 mmol/L (3-11) 06/18/18 06:32 BUN 41 mg/dL (7-18) H 06/18/18 06:32 Creatinine 2.16 mg/dL (0.70-1.30) H 06/18/18 06:32 Estimated GFR/1.73 m2 31.45 (mL/min/1.73m2) 06/18/18 06:32 Glucose 120 mg/dL (70-100) H 06/18/18 06:32 Lactate 1.1 mmol/l (0.6-1.4) 06/14/18 13:43 Calcium 8.2 mg/dL (8.5-10.1) L 06/18/18 06:32 Magnesium 1.8 mg/dL (1.8-2.4) 06/18/18 06:32 Iron 52 ug/dL (50-175) 06/11/18 06:15 TIBC 217 ug/dL (250-450) L 06/11/18 06:15 Transferrin % Sat 24 % (20-55) 06/11/18 06:15 Ferritin 140 ng/mL (8-388) 06/11/18 06:15 Total Bilirubin 0.3 mg/dL (0.2-1.0) 06/08/18 10:00 AST 12 U/L (15-37) L 06/08/18 10:00 ALT 15 U/L (12-78) 06/08/18 10:00 Alkaline Phosphatase 310 U/L (46-116) H 06/08/18 10:00 Troponin I 0.05 ng/mL (0.00-0.06) 06/08/18 19:55 C-Reactive Protein 0.11 mg/dL (0.0-0.3) 06/16/18 06:14 Total Protein 7.6 g/dL (6.4-8.2) 06/08/18 10:00 Albumin 2.9 g/dL (3.4-5.0) L 06/08/18 10:00 Lipase 130 U/L (73-393) 06/08/18 10:00 Vitamin B12 1315 pg/mL (193-986) H 06/11/18 06:15 Folate > 20.0 ng/mL (8.6-20.0) H 06/11/18 06:15 TSH 0.26 uIU/mL (0.358-3.74) L 06/11/18 06:15 Urine Color Yellow (Yellow) 06/08/18 13:30 Urine Clarity Cloudy 06/08/18 13:30 Urine pH 5.5 (5-8) 06/08/18 13:30 Ur Specific [place] 1.020 (1.005-1.025) 06/08/18 13:30 Urine Protein 100 mg/dL (Negative) H 06/08/18 13:30 Urine Ketones Negative mg/dL (Negative) 06/08/18 13:30 Urine Blood Small (Negative) H 06/08/18 13:30 Urine Nitrite Negative (Negative) 06/08/18 13:30 Urine Bilirubin Negative (Negative) 06/08/18 13:30 Urine Urobilinogen 0.2 EU/dL (Up TO 0.2) 06/08/18 13:30 Ur Leukocyte Esterase Moderate (Negative) H 06/08/18 13:30 Urine RBC Not Applicable 06/08/18 13:30 Urine WBC >50 HPF (0-5) 06/08/18 13:30 Ur Epithelial Cells Not Applicable 06/08/18 13:30 Urine Crystals Not Applicable 06/08/18 13:30 Urine Bacteria Not Applicable 06/08/18 13:30 Urine Mucus Not Applicable 06/08/18 13:30 Ur Culture Indicated? Yes 06/08/18 13:30 Urine Glucose Negative mg/dL (Negative) 06/08/18 13:30 Vancomycin Trough 20.9 ug/mL (10.0-20.0) H* 06/17/18 21:35 Organism ID Status (see note) 06/12/18 14:27 Yeast Id Source (see note) 06/12/18 14:27 Yeast Organism Id (see note) 06/12/18 14:27 Yeast Susceptibility Cancelled 06/12/18 14:27
[2018-06-18] MEDS: Amoxicillin 500/Clav. 125 TAB PO (20:10)
[2018-06-18] MEDS: Insulin Glargine 300 UNITS/3 ML PEN 10 UNITS SC (21:59)
[2018-06-19 00:05] VITALS: PULSE 54
[2018-06-19] MEDS: Acetaminophen 325 MG TAB 650 MG PO ×2 (00:20→05:51)
[2018-06-19 00:27] VITALS: BP 170/83; PULSE 59; RESP 18; TEMP 36.4; O2SAT 96
[2018-06-19 03:50] VITALS: BP 156/83; PULSE 52; RESP 18; TEMP 36.5; O2SAT 98
[2018-06-19] MEDS: Levothyroxine 25 MCG TAB PO (05:51)
[2018-06-19] MEDS: Pantoprazole 40 MG TABCR PO (06:30)
[2018-06-19 07:16] LABS: HCT 34.3 % (40.0-50.0); HGB 10.9 g/dL (13.5-17.5); Mean Corp. HGB Concentration 31.8 g/dL (32.0-36.0); Mean Corpuscular Hemoglobin 23.6 pg (27.0-33.0); Mean Corpuscular Volume 74.4 fL (80-95); Mean Platelet Volume 9.2 fL (8.0-11.0); Platelet Count 353 x1000/uL (130-400); RBC 4.61 m/cumm (4.50-6.00); RBC Distribution Width 17.5 % (11.8-14.1); White Blood Cell Count 10.19 k/cumm (4.4-10.8)
[2018-06-19 07:26] LABS: Anion Gap 7.3 mmol/L (3-11); BUN 42 mg/dL (7-18); CO2 28.7 mmol/L (21.0-32.0); CREATININE 2.06 mg/dL (0.70-1.30); Calcium 8.4 mg/dL (8.5-10.1); Chloride 105 mmol/L (98-107); Estimated GFR 33.22 (mL/min/1.73m2); Glucose 128 mg/dL (70-100); Magnesium 1.7 mg/dL (1.8-2.4); Sodium 141 mmol/L (136-145)
[2018-06-19 07:39] LABS: Potassium 2.9 mmol/L (3.5-5.1)
[2018-06-19 07:59] VITALS: BP 177/85; PULSE 54; RESP 22; TEMP 35.9; O2SAT 98
[2018-06-19] MEDS: Furosemide 40 MG TAB PO (08:01)
[2018-06-19] MEDS: Venlafaxine 37.5 MG CAPCR 75 MG PO (08:01)
[2018-06-19] MEDS: predniSONE 20 MG TAB 40 MG PO (08:01)
[2018-06-19] MEDS: Terazosin 2 MG CAP 4 MG PO (08:01)
[2018-06-19] MEDS: Lactobacillus Acidophilus CAP 1 CAP PO (08:02)
[2018-06-19] MEDS: Gabapentin 100 MG CAP PO (08:02)
[2018-06-19] MEDS: cloNIDine 0.1 MG TAB 0.2 MG PO (08:02)
[2018-06-19] MEDS: Multivitamin w/Minerals TAB 1 TAB PO (08:02)
[2018-06-19] MEDS: Folic Acid 1 MG TAB PO (08:02)
[2018-06-19] MEDS: Apixaban 5 MG TAB PO (08:02)
[2018-06-19] MEDS: Amoxicillin 500/Clav. 125 TAB PO (08:02)
[2018-06-19] MEDS: Ferrous Sulfate 325 MG TAB PO (08:02)
[2018-06-19] MEDS: amLODIPine 10 MG TAB PO (08:02)
[2018-06-19] MEDS: Sodium Bicarbonate 650 MG TAB PO (08:02)
[2018-06-19] MEDS: Ascorbic Acid 500 MG TAB 250 MG PO (08:03)
[2018-06-19] MEDS: Insulin Glargine 300 UNITS/3 ML PEN 65 UNITS SC (08:03)
[2018-06-19] MEDS: Fluticasone NASAL SPRAY 16 GM BTL NS (08:03)
[2018-06-19] MEDS: Cyanocobalamin 500 MCG TAB 1000 MCG PO (08:03)
[2018-06-19] MEDS: hydrALAZINE 10 MG TAB PO (08:03)
[2018-06-19 08:29] LABS: Absolute Eosinophil Count 0.31 k/cumm (0.0-0.7); Absolute Lymphocyte Count 0.82 k/cumm (1.2-3.4); Absolute Monocyte Count 1.12 k/cumm (0.11-0.7); Absolute Neutrophil Count 7.85 k/cumm (1.2-6.7); Diff Comment Manual Differential; Nucleated RBC 2 /100WBC
[2018-06-19 08:30] LABS: Basophilic Stippling Present; Microcytosis 1+; Polychromasia Present
[2018-06-19 08:31] LABS: Ovalocytes 2+; Poikilocytes 3+
[2018-06-19] MEDS: Potassium Chloride 20 MEQ TABCR 40 MEQ PO (10:13)
[2018-06-19 10:26] VITALS: PULSE 47
[2018-06-19 10:35] VITALS: O2SAT 97
[2018-06-19] MEDS: Magnesium Chloride 64 MG TABCR PO (10:45)
--- NOTE | 2018-06-19 12:33 | INDS_ITS ---
Date of service: 06/19/18 PT Notes Inpatient Physical Therapy Discharge Summary Dates: 06/19/2018 Dates of Service: 06/09/2018 through 06/18/2018 Referring Doctor: Ariel Bravo MD PT Orders: PT CONSULT: Eval/treat Precautions: Fall. Standard. Patient Profile/Admitting Diagnosis: This is 58-year-old male patient who was sent to the ED with chief complaints of abdominal pain for the past 3 days and single episode of acute emesis. Patient was diagnosed with atrial flutter, UTI with sepsis, acute kidney injury in setting of chronic kidney disease, hyponatremia, lactic acidosis, and dehydration. He is on the tail and body course for management of MRSA bacteremia. Orders received today for functional mobility training, gait and balance training, and patient education/training. 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) Palliative care encounter (Acute) Pulmonary hypertension (Chronic) Toxic metabolic encephalopathy (Resolved) Advance directive on file (Chronic) Chronic cholecystitis (Chronic) 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 2 diabetes mellitus (Ruled-out) HCAP (healthcare-associated pneumonia) (Resolved) MRSA bacteremia (Acute) Ambulatory dysfunction (Chronic) Diabetic foot ulcer (Chronic) Poorly controlled type 2 diabetes mellitus with circulatory disorder (Chronic) Adrenal insufficiency (Chronic) CKD (chronic kidney disease) (Chronic) Cardiopulmonary arrest with successful resuscitation (Resolved) Heme positive stool (Chronic) Sepsis (Resolved) Pedal edema (Chronic) Chronic insomnia (Chronic) Hypertension (Chronic) Chronic pain (Chronic) Hypothyroidism (Chronic) Obesity (Chronic) Back pain (Chronic 06/21/13) Inability to get out of bed (Chronic 06/21/13) Poor self care (Chronic 06/21/13) Chronic bipolar disorder (Chronic) CAD (coronary artery disease) (Chronic) Dyslipidemia (Chronic) Rheumatoid arthritis (Chronic) Osteoarthritis of both knees (Chronic) Cholelithiasis (Chronic) Impaired mobility and ADLs (Chronic) Hemorrhagic cystitis (Inactive) Anemia (Chronic) Chronic anxiety (Chronic) Ulcerative colitis (Chronic) Surgical History History of insertion of T-tube into biliary tract (Chronic) S/P colectomy (Chronic) Arthroplasty of knee (Resolved 03/18/12) Fracture, Open Treatment (Resolved) Social History/Home Situation: Social History/Home Situation: Patient is a resident of the [facility]. Patient states that upon discharge from this hospital, physical therapy worked with him and hasad issac walking about 50 feet on level surfaces with front-wheeled walker. He states that about 3 weeks ago when PT stopped working with him, he has not had anybody who helped continue his ambulation activity. He reports that his knees started hurting as well as his pain pill medication dosage was reduced. Current Functional Limitations: Patient requires assistance with all mobility ADL performance Equipment Owned/DME: Wheelchair, front-wheeled walker Following is a clinical summary of skilled services provide on duration of dates listed above. No charge was made in the completion of this documentation. Subjective: NT Objective: General Observation: NT Mental Status: Alert and oriented x 3 Pain: Patient reports abdominal discomfort but no pin on bilatera toes where diabetic ulcers are. ROM: Right Upper Extremity: Shoulder flexion about 50 degrees. Elbow motion is limited to 100 degrees flexion, lacking at least 20 degrees of terminal extension. Poor functional opening of the hand. Left Upper Extremity: Shoulder flexion about 60 degrees. Elbow motion is within functional limits. Poor functional opening of the hand. Right Lower Extremity: Patient has approximately 10 degree knee flexion contracture. Demonstrates ankle dorsiflexion to 5 degrees beyond neutral. Left Lower Extremity: Patient has approximately 15 degree knee flexion contracture. Demonstrates ankle dorsiflexion to 5 degrees beyond neutral. STRENGTH: Right Upper Extremity: Shoulder flexion 2-/5. Biceps 2-/5. Triceps 3+/5. Director Of Casework Department is weak. Left Upper Extremity: Shoulder flexion 3-/5. Biceps 3-/5. Triceps 3+/5. Director Of Casework Department is weak. Right Lower Extremity: Hip flexion 3-/5. Quads 3-/5. Hamstrings 3-/5. Ankle dorsiflexors 2-/5. Left Lower Extremity: Hip flexion 3-/5. Quads 3-/5. Hamstrings 3-/5. Ankle dorsiflexiors 2-/5. BED MOBILITY LEVELS/TRANSFERS Rolling independent Supine to sit independent Sit to supine independent Sit to stand supervision Stand to sit supervision Bed to chair supervision Chair to bed supervision Balance: Static sitting: Good Dyanamic sitting: Good Static Standing: Fair Dynamic standing: Fair Assessment: Patient is a 58 year old male referred to physical therapy services with the diagnosis of urinary tract infection, atrial flutter, UTI with sepsis, acute kidney injury in setting of chronic kidney disease, hyponatremia, lactic acidosis, and dehydration. Patient presents with clinical signs and symptoms consistent with reduced mobility related to acute medical issues. Patient does have chronic mobility deficits, and resides in a long-term care facility, where he requires assistance with all ambulation and self-care. PT goals will be targeted at maximizing patient's mobility and strength to allow for safe transition back to long-term care facility. He currently demonstrates the following impairment level findings: 1. Decreased lower extremity strength 2. Decreased upper extremity strength 3. Decreased activity tolerance 4. Decreased range of motion bilateral knees and hands 5. Decreased balance skills Impairments are contributing to the following functional limitations: 1. Unable to perform ambulation 2. Patient requiring assistance with bed mobility 3. Decreased activity tolerance 4. Decreased safety with transfers 5. Dependence with transfer task performance Goals: Goals X1 week 1. Supine-Sit independent MET 2. Sit-Supine independent MET 3. Sit-Stand independent NOT MET 4. Stand-Sit independent NOT MET 5. Bed-Chair independent NOT MET 6. Chair-Bed independent NOT MET 7. Independent gait on level surface with use of least restrictive device for at least 100 feet without report of pain nor dyspnea NOT MET 8. Good static and dynamic standing balance/tolerance NOT MET DISCHARGE RECOMMENDATIONS: Return to the [facility] when medically stable. Will highly benefit from continued skilled PT services at the SNF to establish a functional program and reduce fall risk. TREATMENT CODE/TIME: N/A Thank you for this referral. Jean Gamez, PT, DPT, CLT [facility]
--- NOTE | 2018-06-19 17:33 | W.PM.DS.N ---
Date of service: 06/19/18 Time of Service: 17:33 DS: Diagnosis Discharge Diagnosis (1) Atrial flutter, paroxysmal: Status: Acute (2) Elevated troponin I level: Status: Acute (3) UTI (urinary tract infection): Status: Acute (4) 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: Status: Acute (5) Diabetic foot ulcer: Status: Chronic (6) Adrenal insufficiency: Status: Chronic (7) Chronic cholecystitis: Status: Chronic (8) Acute on chronic kidney failure: Status: Acute (9) Hyperkalemia: Status: Resolved (10) MRSA bacteremia: Status: Resolved (11) Poorly controlled type 2 diabetes mellitus with circulatory disorder: Status: Chronic (12) Anemia: Status: Chronic (13) Hypothyroidism: Status: Chronic (14) DVT prophylaxis: Status: Acute (15) Advance directive on file: Status: Acute (16) Metabolic acidosis: Status: Acute Discharge Plan Disposition Patient Disposition: SNF (LEVEL 1) [facility] Condition: Fair Discharge Details Reason For Visit: AFIB WITH RVR, JESUS, UTI Admit Date/Time: 06/08/18 17:23 Admit Provider: Ariel Bravo Attending Provider: Ariel Bravo Primary Care Provider: Anne Horowitz Hospital Course Hospital Course: This is a 58-year-old male with multiple medical problems that resides at the [facility]. He presented on 06/08/2018 with nausea vomiting and abdominal pain. He went into a rapid atrial fibrillation/atrial flutter requiring intravenous diltiazem to control his rate. He was started on anticoagulation as well as Cardizem and metoprolol. He converted to a sinus rhythm on 06/13/2018 and has been somewhat bradycardic since that time requiring tapering and holding of rate controlling agents. He is feeling considerably better and most of his time was spent in controlling his chronic issues including #1 diabetic foot ulcers?he was seen by Dr. Ashford for wound care with a plan to see him back for consideration of amputation of the right first toe. He was covered with vancomycin and Zosyn for presumed wound infection, transition to Augmentin for another 5 days. #2. His cholecystotomy tube became clogged and was irrigated to clear. He continues to have drainage from his gallbladder. Further follow-up as an outpatient with [facility] general surgery for definitive therapy for his chronic cholecystitis #3. Adrenal insufficiency?he was maintained on prednisone 40 mg daily with plans to taper this down to his baseline of 10 mg daily #4. Diabetes?blood sugars were well controlled during his stay #5. fungal UTI?fungus grew out on his urine and he received a 5-day course of IV fluconazole #6. Acute renal failure?initial creatinine was elevated from baseline of around 2-3.22, this improved with hydration back to a baseline of 2.06 at the time of discharge Home Meds and New Rx's Prescriptions: New clonidine HCl [Catapres] 0.1 mg Tablet 0.2 mg PO TID Qty: 90 RF: 0 levothyroxine 25 mcg Tablet 25 mcg PO DAILY@0600 Qty: 30 RF: 0 furosemide 40 mg Tablet 40 mg PO BID@0830,1600 Qty: 60 RF: 0 ipratropium-albuterol 0.5 mg-3 mg(2.5 mg base)/3 mL Solution For Nebulization 3 ml UPD Q6H PRN PRNQty: 1 RF: 0 Iodosorb 0.9 % Gel topical DAILY Qty: 60 RF: 0 amlodipine 10 mg Tablet 10 mg PO DAILY Qty: 30 RF: 0 gabapentin 100 mg Capsule 100 mg PO TID Qty: 90 RF: 0 Santyl 250 unit/gram Ointment topical DAILY Qty: 60 RF: 0 fluticasone propionate 50 mcg/actuation Davidson,Suspension NS DAILY Qty: 1 RF: 0 amoxicillin-pot clavulanate 500-125 mg Tablet 1 tab PO BID Qty: 10 RF: 0 Loan Protect Cream 1 applic topical PRN PRNQty: 60 RF: 0 Loan Protect Cream topical TID Qty: 60 RF: 0 Eliquis 5 mg Tablet 5 mg PO BID Qty: 60 RF: 0 Novolog Flexpen U-100 Insulin 100 unit/mL Insulin Pen See Rx Instructions .ROUTE .COMPLEX Qty: 15 RF: 0 Lantus Solostar U-100 Insulin 100 unit/mL (3 mL) Insulin Pen See Rx Instructions .ROUTE .COMPLEX Qty: 15 RF: 0 levalbuterol HCl 0.63 mg/3 mL Solution For Nebulization 0.63 mg UPD Q2H PRN PRN (Reason: Dyspnea) Qty: 1 RF: 0 prednisone 20 mg Tablet See Rx Instructions .ROUTE .COMPLEX Qty: 60 RF: 0 pantoprazole 40 mg Tablet,Delayed Release (Dr/Ec) 40 mg PO BID@07,1999 Qty: 60 RF: 0 melatonin 3 mg Tablet Extended Release 6 mg PO HS Qty: 30 RF: 0 sodium bicarbonate 650 mg Tablet 650 mg PO TID Qty: 90 RF: 0 trimethobenzamide 300 mg Capsule 300 mg PO TID PRN PRN (Reason: Nausea) Qty: 30 RF: 0 Continued loperamide 2 mg Capsule 2 mg PO QID PRNRF: 0 cyanocobalamin (vitamin B-12) 1,000 mcg Tablet 1,000 mcg PO DAILY RF: 0 folic acid 1 mg Tablet 1 mg PO DAILY RF: 0 ferrous sulfate 325 mg (65 mg iron) Tablet 325 mg PO BID Qty: 0 RF: 0 Lantus Solostar U-100 Insulin 100 unit/mL (3 mL) insulin pen 60 unit subcut DAILY RF: 0 ascorbic acid (vitamin C) [Vitamin C] 250 mg Tablet 1 tab PO BID RF: 0 Centrum Complete 18-400 mg-mcg Tablet 1 tab PO DAILY RF: 0 venlafaxine 75 mg Capsule,Extended Release 24hr 75 mg PO DAILY RF: 0 acidophilus-pectin, citrus 25 million cell -100 mg Tablet 1 cap PO TID Qty: 0 RF: 0 risperidone [Risperdal] 1 mg Tablet 3 mg PO HS Qty: 30 RF: 0 trazodone 50 mg Tablet 50 mg PO HS Qty: 30 RF: 0 oxycodone 5 mg capsule 5 mg PO Q8H PRN (Reason: pain) Qty: 30 RF: 0 acetaminophen [Tylenol] 325 mg Tablet 325 - 650 mg PO Q4H PRN PRNQty: 0 RF: 0 hydralazine 10 mg Tablet 10 mg PO TID Qty: 0 RF: 0 terazosin 2 mg Capsule 4 mg PO BID Qty: 0 RF: 0 hydroxyzine HCl 25 mg Tablet 25 mg PO Q6H PRN PRN (Reason: Itching) Qty: 0 RF: 0 magnesium chloride [Mag 64] 64 mg Tablet,Delayed Release (Dr/Ec) 64 mg PO BID Qty: 0 RF: 0 Discontinued aspirin [Aspirin Low Dose] 81 mg Tablet,Delayed Release (Dr/Ec) 81 mg PO BID RF: 0 carbamazepine 100 mg Tablet,Chewable 100 mg PO TID RF: 0 omeprazole 20 mg Capsule,Delayed Release(Dr/Ec) 20 mg PO DAILY RF: 0 clonidine HCl [Catapres] 0.1 mg Tablet 0.3 mg PO TID Qty: 0 RF: 0 amlodipine 5 mg Tablet 10 mg PO DAILY Qty: 0 RF: 0 levothyroxine 75 mcg Tablet 0.5 tab PO DAILY RF: 0 ergocalciferol (vitamin D2) [Vitamin D2] 50,000 unit Capsule See Rx Instructions .ROUTE .COMPLEX RF: 0 Novolog Flexpen U-100 Insulin 100 unit/mL insulin pen subcut 0730,1130,1630 RF: 0 metoprolol succinate 25 mg Tablet Extended Release 24 Hr 25 mg PO DAILY RF: 0 prednisone 20 mg tablet 50 mg PO DAILY Qty: 0 RF: 0 Hydrocortef 10 mg PO BID RF: 0 furosemide 20 mg tablet 40 mg PO DAILY RF: 0 vancomycin 750 mg recon soln 500 mg IV .[id number] RF: 0 Discharge Instructions Instructions: Atrial Fibrillation (DC), Acute Kidney Injury (DC), Urinary Tract Infection in Men (GEN) Stand Alone Forms: Nursing Discharge Form Activity:: Activity as Tolerated Equipment/Supplies:: No Equipment Needed Diet:: Carb Counting Discharge Orders Discharge Orders: Discharge Order (Routine); Ordered 06/19/18 Ordered By: Hemanth Rodriguez Discharge Data Discharge Date/Time-TO BE ENTERED AT DEPARTURE: 06/19/18 11:11 Exam Narrative Exam Narrative: Patient is in good spirits. His sensorium appeared to be clear. He had no respiratory difficulty. Heart sounds were regular and there was no significant murmur. Abdomen was quite massive but soft and nontender. His cholecystotomy tube showed no surrounding erythema, draining brownish material. The ileostomy appeared to be functioning well without apparent abnormality. His lower extremities both show hemosiderin deposits and significant osteoarthritis at the knees. There is no significant edema. Neurologically he is moving all extremities. Patient's weight is down to 209 pounds today. DS: Data Vitals/I&O Vitals and I&O: Vital Signs Temperature 35.9 C L 06/19/18 07:59 Temperature Source Tympanic 06/19/18 07:59 Pulse 47 L 06/19/18 10:26 Pulse Rhythm Regular 06/19/18 08:30 Pulse 67 06/18/18 18:00 Respiratory Rate 22 06/19/18 07:59 Respiratory Effort Non-Labored 06/19/18 08:30 Respiratory Depth Normal 06/19/18 08:30 Respiratory Pattern Normal 06/19/18 08:30 Blood Pressure 177/85 H 06/19/18 07:59 Blood Pressure Mean 85 06/18/18 18:02 Blood Pressure Position Supine 06/17/18 12:42 Pulse Oximetry 97 06/19/18 10:35 Oxygen Delivery Method Room Air 06/19/18 10:35 Oxygen Flow Rate 0 06/19/18 10:35 Pain Level 2 06/19/18 03:50 Comment 06/19/18 03:50 Intake & Output 06/18/18 06/19/18 06/19/18 23:59 11:59 23:59 Intake Total 50 / 875 500 / 500 Output Total 3490 / 5405 3000 / 3000 Balance -3440 / -4530 -2500 / -2500 Weight 95 kg Intake: IV 50 / 350 Oral 500 / 500 Output: Drainage 140 / 305 350 / 350 Gallbladder drain 140 / 305 350 / 350 Urine 2750 / 4100 1500 / 1500 Stool 600 / 1000 1150 / 1150 Other: Urine Color Yellow Yellow Urine Appearance Clear Clear Urine Odor None Normal Voiding Methods Urinal Urinal Labs on day of discharge: Labs from last 24 hours 06/19/18 06/19/18 06:55 06:55 WBC 10.19 RBC 4.61 Hgb 10.9 L Hct 34.3 L MCV 74.4 L MCH 23.6 L MCHC 31.8 L RDW 17.5 H Plt Count 353 MPV 9.2 Immature Gran % See Differential Neutrophils % 76.0 Band Neutrophils % 1.0 Lymphocytes % 8.0 Monocytes % 11.0 Eosinophils % 3.0 Basophils % 0.0 Myelocytes % 1.0 Absolute Neutrophils 7.85 H Absolute Lymphocytes 0.82 L Absolute Monocytes 1.12 H Absolute Eosinophils 0.31 Absolute Basophils 0.00 Nucleated RBCs 2 Differential Comment Manual differential RBC Morphology See below Polychromasia Present Poikilocytosis 3+ Basophilic Stippling Present Microcytosis 1+ Ovalocytes 2+ Sodium 141 Potassium 2.9 L* Chloride 105 Carbon Dioxide 28.7 Anion Gap 7.3 BUN 42 H Creatinine 2.06 H Estimated GFR/1.73 m2 33.22 Glucose 128 H Calcium 8.4 L Magnesium 1.7 L [facility] Medical History 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 (Acute) 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) Palliative care encounter (Acute) Pulmonary hypertension (Chronic) Toxic metabolic encephalopathy (Resolved) Advance directive on file (Chronic) Chronic cholecystitis (Chronic) 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 2 diabetes mellitus (Ruled-out) HCAP (healthcare-associated pneumonia) (Resolved) MRSA bacteremia (Resolved) Ambulatory dysfunction (Chronic) Diabetic foot ulcer (Chronic) Poorly controlled type 2 diabetes mellitus with circulatory disorder (Chronic) Adrenal insufficiency (Chronic) CKD (chronic kidney disease) (Chronic) Cardiopulmonary arrest with successful resuscitation (Resolved) Heme positive stool (Chronic) Sepsis (Resolved) Pedal edema (Chronic) Chronic insomnia (Chronic) Hypertension (Chronic) Chronic pain (Chronic) Hypothyroidism (Chronic) Obesity (Chronic) Back pain (Chronic 06/21/13) Inability to get out of bed (Chronic 06/21/13) Poor self care (Chronic 06/21/13) Chronic bipolar disorder (Chronic) CAD (coronary artery disease) (Chronic) Dyslipidemia (Chronic) Rheumatoid arthritis (Chronic) Osteoarthritis of both knees (Chronic) Cholelithiasis (Chronic) Impaired mobility and ADLs (Chronic) Hemorrhagic cystitis (Inactive) Anemia (Chronic) Chronic anxiety (Chronic) Ulcerative colitis (Chronic) Surgical History History of insertion of T-tube into biliary tract (Chronic) S/P colectomy (Chronic) Arthroplasty of knee (Resolved 03/18/12) Fracture, Open Treatment (Resolved) Social History Smoking/Tobacco Use Status: Never Drug use: Occasionally Housing: fdc Do you feel safe in your relationship?: Yes
--- NOTE | 2018-06-19 22:49 | OT.INDS ---
Date of service: 06/19/18 Time of Service: 09:10 Occupational Therapy Notes Occupational Therapy Inpatient Discharge Summary Date: 06/16/18 Dates of Service: 06/16/18-06/19/18 Referring Doctor:Priscila Canela MD OT Orders: Eval and Treat Precautions: Fall Risk, Standard PATIENT PROFILE/ADMITTING DIAGNOSIS: Pt is a 58 year old male who has been admitted multiple times to [facility] from [facility] since October 2017. He was admitted through the ER for abdominal pain and vomiting. 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) Palliative care encounter (Acute) Pulmonary hypertension (Chronic) Toxic metabolic encephalopathy (Resolved) Advance directive on file (Chronic) Chronic cholecystitis (Chronic) 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 2 diabetes mellitus (Ruled-out) HCAP (healthcare-associated pneumonia) (Resolved) MRSA bacteremia (Acute) Ambulatory dysfunction (Chronic) Diabetic foot ulcer (Chronic) Poorly controlled type 2 diabetes mellitus with circulatory disorder (Chronic) Adrenal insufficiency (Chronic) CKD (chronic kidney disease) (Chronic) Cardiopulmonary arrest with successful resuscitation (Resolved) Heme positive stool (Chronic) Sepsis (Resolved) Pedal edema (Chronic) Chronic insomnia (Chronic) Hypertension (Chronic) Chronic pain (Chronic) Hypothyroidism (Chronic) Obesity (Chronic) Back pain (Chronic 06/21/13) Inability to get out of bed (Chronic 06/21/13) Poor self care (Chronic 06/21/13) Chronic bipolar disorder (Chronic) CAD (coronary artery disease) (Chronic) Dyslipidemia (Chronic) Rheumatoid arthritis (Chronic) Osteoarthritis of both knees (Chronic) Cholelithiasis (Chronic) Impaired mobility and ADLs (Chronic) Hemorrhagic cystitis (Inactive) Anemia (Chronic) Chronic anxiety (Chronic) Ulcerative colitis (Chronic) Surgical History History of insertion of T-tube into biliary tract (Chronic) S/P colectomy (Chronic) Arthroplasty of knee (Resolved 03/18/12) Fracture, Open Treatment (Resolved) Social History/Home Situation: Pt resides at [facility]. He reports that his is currently total (A) for ADLs but this has recently decline since November 2017 which pt reports at every evaluation performed by OT since. Pt is well known to OT. He states that he functionally noticed a decline in his medical status about 2 weeks ago. Equipment owned/DME: FWW which he uses for ambulation, he is a resident of SNF so all other DME are met through the facility. SUBJECTIVE: Pt was sitting in bed when OT arrived. He states that he is returning back to the [facility] today. OBJECTIVE: General Observation: Downing, IV (L) UE, telemetry, T-tube, Mental Status: A&Ox3 Pain: c/o pain in (R) UE which is pts baseline. ROM: RUE Shoulder flexion to 60*, elbow unable due to pain L UE Shoulder flexion ~30*, elbow flexion WFL with hard end feel for PROM STRENGTH: RUE Unable to test shoulder flexion or elbow as pt is not able to assume ideal testing position, modified testing pt is 3-/5 throughout acetylene torch solderer is weak and symmetrical LUE Unable to test shoulder flexion or elbow as pt is not able to assume ideal testing position, modified testing pt is 3-/5 throughout acetylene torch solderer is weak and symmetrical BALANCE: Static sitting normal Dynamic Sitting good Static Standing NT Dynamic Standing NT BATHING: Upper Body: Sitting in bed max (A) set up (I) washing face, min vc for washing UE and forehead. Pt was able to wash lower abdomen with min (A) chest. Max (A) hair. DRESSING: Upper Extremity: Mod (A) donning and doffing hospital gown in sitting d/t limited (B) UE ROM ASSESSMENT: Patient is a 58-year-old male referred to occupational therapy services after being admitted through the ER at [facility] for abdominal pain and vomiting. Pt has been seen multiple times here at [facility] since October 2017 in setting of significant PMHx (see above).Pt was seen for 3 skilled OT sessions. He has made positive progressions with (I) in his bathing routine. He was pleasant in interaction and was discharged back to the [facility] today. OT will formally discharge pt from skilled OT services at this time. GOALS 1. Transfers CGA, FWW (MET) 2. Dressing: Sitting on side of bed, pt will be able to put (B) UE into the hospital gown (I) with min verbal cues. (NOT MET) 3. Bathing: Sitting on side of bed pt will be able to wash face, (B) UE and abdomen (I) and upper legs with min verbal cues. (MET) 4. Pts acetylene torch solderer strength will improve to 4/5 (B) and pt will be able to grasp pen, eating utensils and toothbrush with increased (I). (NOT MET) PLAN OF CARE/TREATMENT PLAN: Discharge from skilled OT services. DISCHARGE RECOMMENDATIONS Return to [facility] when medically cleared per MD. TREATMENT TIME/MINUTES/CODES [id number], 50 minutes (09:10) Suzanne Javier OTR/[facility]
--- NOTE | 2018-06-19 22:55 | OTDS_ITS ---
Date of service: 06/19/18 Time of Service: 09:10 Occupational Therapy Notes Occupational Therapy Inpatient Discharge Summary Date: 06/16/18 Dates of Service: 06/16/18-06/19/18 Referring Doctor:Priscila Canela MD OT Orders: Eval and Treat Precautions: Fall Risk, Standard PATIENT PROFILE/ADMITTING DIAGNOSIS: Pt is a 58 year old male who has been admitted multiple times to [facility] from [facility] since October 2017. He was admitted through the ER for abdominal pain and vomiting. 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) Palliative care encounter (Acute) Pulmonary hypertension (Chronic) Toxic metabolic encephalopathy (Resolved) Advance directive on file (Chronic) Chronic cholecystitis (Chronic) 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 2 diabetes mellitus (Ruled-out) HCAP (healthcare-associated pneumonia) (Resolved) MRSA bacteremia (Acute) Ambulatory dysfunction (Chronic) Diabetic foot ulcer (Chronic) Poorly controlled type 2 diabetes mellitus with circulatory disorder (Chronic) Adrenal insufficiency (Chronic) CKD (chronic kidney disease) (Chronic) Cardiopulmonary arrest with successful resuscitation (Resolved) Heme positive stool (Chronic) Sepsis (Resolved) Pedal edema (Chronic) Chronic insomnia (Chronic) Hypertension (Chronic) Chronic pain (Chronic) Hypothyroidism (Chronic) Obesity (Chronic) Back pain (Chronic 06/21/13) Inability to get out of bed (Chronic 06/21/13) Poor self care (Chronic 06/21/13) Chronic bipolar disorder (Chronic) CAD (coronary artery disease) (Chronic) Dyslipidemia (Chronic) Rheumatoid arthritis (Chronic) Osteoarthritis of both knees (Chronic) Cholelithiasis (Chronic) Impaired mobility and ADLs (Chronic) Hemorrhagic cystitis (Inactive) Anemia (Chronic) Chronic anxiety (Chronic) Ulcerative colitis (Chronic) Surgical History History of insertion of T-tube into biliary tract (Chronic) S/P colectomy (Chronic) Arthroplasty of knee (Resolved 03/18/12) Fracture, Open Treatment (Resolved) Social History/Home Situation: Pt resides at [facility]. He reports that his is currently total (A) for ADLs but this has recently decline since November 2017 which pt reports at every evaluation performed by OT since. Pt is well known to OT. He states that he functionally noticed a decline in his medical status about 2 weeks ago. Equipment owned/DME: FWW which he uses for ambulation, he is a resident of SNF so all other DME are met through the facility. SUBJECTIVE: Pt was sitting in bed when OT arrived. He states that he is returning back to the [facility] today. OBJECTIVE: General Observation: Downing, IV (L) UE, telemetry, T-tube, Mental Status: A&Ox3 Pain: c/o pain in (R) UE which is pts baseline. ROM: RUE Shoulder flexion to 60*, elbow unable due to pain L UE Shoulder flexion ~30*, elbow flexion WFL with hard end feel for PROM STRENGTH: RUE Unable to test shoulder flexion or elbow as pt is not able to assume ideal testing position, modified testing pt is 3-/5 throughout line painting machine operator is weak and symmetrical LUE Unable to test shoulder flexion or elbow as pt is not able to assume ideal testing position, modified testing pt is 3-/5 throughout line painting machine operator is weak and symmetrical BALANCE: Static sitting normal Dynamic Sitting good Static Standing NT Dynamic Standing NT BATHING: Upper Body: Sitting in bed max (A) set up (I) washing face, min vc for washing UE and forehead. Pt was able to wash lower abdomen with min (A) chest. Max (A) hair. DRESSING: Upper Extremity: Mod (A) donning and doffing hospital gown in sitting d/t limited (B) UE ROM ASSESSMENT: Patient is a 58-year-old male referred to occupational therapy services after being admitted through the ER at [facility] for abdominal pain and vomiting. Pt has been seen multiple times here at [facility] since October 2017 in setting of significant PMHx (see above).Pt was seen for 3 skilled OT sessions. He has made positive progressions with (I) in his bathing routine. He was pleasant in interaction and was discharged back to the [facility] today. OT will formally discharge pt from skilled OT services at this time. GOALS 1. Transfers CGA, FWW (MET) 2. Dressing: Sitting on side of bed, pt will be able to put (B) UE into the hospital gown (I) with min verbal cues. (NOT MET) 3. Bathing: Sitting on side of bed pt will be able to wash face, (B) UE and abdomen (I) and upper legs with min verbal cues. (MET) 4. Pts line painting machine operator strength will improve to 4/5 (B) and pt will be able to grasp pen, eating utensils and toothbrush with increased (I). (NOT MET) PLAN OF CARE/TREATMENT PLAN: Discharge from skilled OT services. DISCHARGE RECOMMENDATIONS Return to [facility] when medically cleared per MD. TREATMENT TIME/MINUTES/CODES [id number], 50 minutes (09:10) Suzanne Javier OTR/[facility]
--- NOTE | 2018-06-20 00:49 | PDOC.CMDIS ---
- If Service Date Differs Date of service: 06/19/18 Time of Service: 10:00 LACE Index Scoring Tool - Questions: Length of Stay (in days): 14 or more Comorbidities: Diabetes w/o Complication, Congestive Heart Failure, Mild Liver/Renal Disease, Liver or Renal Disease Care Management Discharge Reason for Hospitalization: Afib with RVR, JESUS, UTI Discharge Plan: Brendan is being discharged back to the [facility] coordinated. CM contact [facility] to scheduled GI follow uo, CM faxed referral and requested appointment. CM reviewed the plan with track laying supervisor nurse at the [facility]. Brendan will need to follow up with as outpatient. Brendan will remain on stress dose steroids with a slow taper. Patient/Family Education Needs: Discharge instructions and follow up plan. Services Needed at Discharge: Intermediate Facility, Transportation
--- NOTE | 2018-06-20 00:57 | CMDISCH_ITS ---
- If Service Date Differs Date of service: 06/19/18 Time of Service: 10:00 LACE Index Scoring Tool - Questions: Length of Stay (in days): 14 or more Comorbidities: Diabetes w/o Complication, Congestive Heart Failure, Mild Liver/Renal Disease, Liver or Renal Disease Care Management Discharge Reason for Hospitalization: Afib with RVR, JESUS, UTI Discharge Plan: Brendan is being discharged back to the [facility] coordinated. CM contact [facility] to scheduled GI follow uo, CM faxed referral and requested appointment. CM reviewed the plan with supervisor mold yard nurse at the [facility]. Brendan will need to follow up with as outpatient. Berndan will remain on stress dose steroids with a slow taper. Patient/Family Education Needs: Discharge instructions and follow up plan. Services Needed at Discharge: [facility] Facility, Transportation
== END 2018-06-19 11:11 | disposition skilled nursing facility (03) | DRG 682 ==
LOC: ER 18:32 → ICU 06-09 09:48 → MS 06-19 11:11 → ICU 06-25 11:55
PROVIDERS: Internal Medicine; Admitting Provider Internal Medicine; Emergency Provider Student in an Organized Health Care Education/Training Program; PCP Family Medicine; Visit Provider Family Medicine
DX: N17.9 Acute kidney failure, unspecified (principal); A41.9 Sepsis, unspecified organism; I48.92 Unspecified atrial flutter; B37.49 Other urogenital candidiasis; R78.81 Bacteremia; K80.10 Calculus of gallbladder with chronic cholecystitis without obstruction; E27.3 Drug-induced adrenocortical insufficiency; E87.2 Acidosis; E87.1 Hypo-osmolality and hyponatremia; I24.8 Other forms of acute ischemic heart disease; I48.91 Unspecified atrial fibrillation; R00.1 Bradycardia, unspecified; N18.4 Chronic kidney disease, stage 4 (severe); I12.9 Hypertensive chronic kidney disease with stage 1 through stage 4 chronic kidney disease, or unspecified chronic kidney disease; E11.22 Type 2 diabetes mellitus with diabetic chronic kidney disease; E86.0 Dehydration; Z93.8 Other artificial opening status; E11.621 Type 2 diabetes mellitus with foot ulcer; L97.521 Non-pressure chronic ulcer of other part of left foot limited to breakdown of skin; E11.65 Type 2 diabetes mellitus with hyperglycemia; B95.62 Methicillin resistant Staphylococcus aureus infection as the cause of diseases classified elsewhere; Z79.4 Long term (current) use of insulin; Z93.2 Ileostomy status; T38.0X5A Adverse effect of glucocorticoids and synthetic analogues, initial encounter; E86.1 Hypovolemia; Z45.2 Encounter for adjustment and management of vascular access device; N18.9 Chronic kidney disease, unspecified; L29.8 Other pruritus; E87.5 Hyperkalemia; E11.51 Type 2 diabetes mellitus with diabetic peripheral angiopathy without gangrene; Z87.440 Personal history of urinary (tract) infections; E03.9 Hypothyroidism, unspecified; E66.9 Obesity, unspecified; I08.1 Rheumatic disorders of both mitral and tricuspid valves; I87.2 Venous insufficiency (chronic) (peripheral); G47.33 Obstructive sleep apnea (adult) (pediatric); L89.319 Pressure ulcer of right buttock, unspecified stage; L89.159 Pressure ulcer of sacral region, unspecified stage
CPT/HCPCS: 36410; 36415; 36592; 76770; 80048; 80053; 82805; 83690; 87040; 87077; 87081; 87186; 93005; 93306; 96374; 96375; 97110; 97162; 97166; 97530; 97535; 99232; 99233; 99239; 99285; 99291; NC; 71045; 73700; 74176; 80202; 81003; 81015; 82607; 82728; 82746; 83540; 83550; 83605; 83735; 84132; 84443; 84484; 85025; 86140; 87070; 87086; 87103; 87106; 87205; 93010; J1644; J1720; J1956; J2405; J2543; J3475; J3490; J7060; J7512; Q9967

== ENCOUNTER 2018-06-22 12:00 | Outpatient (REF) | payer MEDICARE, MEDICAID, SELFPAY ==
[2018-06-22 12:42] LABS: Abs Immature Grans 0.22 k/cumm (0.0-0.09); Absolute Basophil Count 0.03 k/cumm (0.0-0.2); Absolute Eosinophil Count 0.21 k/cumm (0.0-0.7); Absolute Lymphocyte Count 1.09 k/cumm (1.2-3.4); Absolute Monocyte Count 0.77 k/cumm (0.11-0.7); Absolute Neutrophil Count 10.23 k/cumm (1.2-6.7); Basophils % 0.2; Eosinophils % 1.7; HCT 37.8 % (40.0-50.0); Immature Grans % 1.8; Lymphocytes % 8.7; Mean Corp. HGB Concentration 31.7 g/dL (32.0-36.0); Mean Corpuscular Hemoglobin 23.9 pg (27.0-33.0); Mean Corpuscular Volume 75.3 fL (80-95); Mean Platelet Volume 10.2 fL (8.0-11.0); Monocytes % 6.1; Neutrophils % 81.5; Platelet Count 355 x1000/uL (130-400); RBC 5.02 m/cumm (4.50-6.00); RBC Distribution Width 17.7 % (11.8-14.1); White Blood Cell Count 12.55 k/cumm (4.4-10.8)
[2018-06-22 12:54] LABS: Anion Gap 11.5 mmol/L (3-11); BUN 52 mg/dL (7-18); CO2 24.5 mmol/L (21.0-32.0); CREATININE 2.06 mg/dL (0.70-1.30); Calcium 9.5 mg/dL (8.5-10.1); Chloride 104 mmol/L (98-107); Estimated GFR 33.22 (mL/min/1.73m2); Glucose 218 mg/dL (70-100); Potassium 4.1 mmol/L (3.5-5.1); Sodium 140 mmol/L (136-145)
== END 2018-06-22 12:20 ==
LOC: LBN 12:00
PROVIDERS: PCP Family Medicine; Visit Provider Family Medicine
DX: I38 Endocarditis, valve unspecified (principal); M86.671 Other chronic osteomyelitis, right ankle and foot
CPT/HCPCS: 80048; 85025

== ENCOUNTER 2018-06-26 06:44 | Day surgery (SDC) | payer MEDICARE, MEDICAID, SELFPAY ==
[2018-06-26 07:07] VITALS: BP 139/74; PULSE 58; RESP 18; TEMP 35.6; O2SAT 99
[2018-06-26] MEDS: Lactated Ringers 1,000 ML 80 ML IV (07:34)
--- NOTE | 2018-06-26 07:45 | NUR.NOTE ---
Addendum entered by Blaire Romano 06/26/18 07:55: Pt poor historian and unable to confirm verify medical/surgical history or medications that he is taking, or medications that he took this morning. Pt indicated that he had nothing by mouth since before midnight to [facility] upon getting to [facility], but later told Alberto Valderrama CRNA that he took a blood pressure medication this morning with a sip of water, and later still, according to the med list that was later rec'd via fax from the [facility], the pt actually took his Synthroid this morning (as opposed to blood pressure medication). -Ino Original Note: 06/26/18: Blaire Romano RN and Silvia Agarwal RN contacted the [facility] separately to request active med list around 0715 and 0725, awaiting fax. Pt presented with no paper work from the [facility] at 0645. Chance Valderrama CRNA, and Dr. Ashford verbalized permission to perform surgery without these records from the [facility]. Blaire Romano RN rec'd fax from [facility] [employer] at 0748 after pt taken from unit to OR. -Ino
[2018-06-26] MEDS: ceFAZolin 1 GM/50 ML BAG IVPB (07:49)
[2018-06-26] MEDS: Bupivacaine 0.5% Pres-Free 30 ML VIAL (07:58)
[2018-06-26] MEDS: Lidocaine 1% Pres-Free 5 ML VIAL (07:59)
--- NOTE | 2018-06-26 08:05 | AMP_PTH ---
PATIENT: CARMITA ROMAN LOC: [facility] U#:[id number] AGE/SX: 58/M ROOM: RE06/26/[address]: Harris Ashford : 1960 BED: DIS: 06/26/2018 SPEC #: [id number] RECD: 06/26/18 12:41 STATUS: DALIA REQ #: [id number] SEA: 06/26/18 08:[address]: Harris Ashford DEPT: Surgical Specimen RECD BY: Pau Thomason ENTERED: 06/26/18 12:42 SP TYPE: Amputation OTHR DR: Anne Horowitz MD, DC Tissues: 1 - AMPUTATION FINGERS/TOES(NOT TRAUMA) Procedures: GROSS LEVEL 1 Comments: [id number]
--- NOTE | 2018-06-26 08:28 | W.PM.DSUDISC ---
Discharge Plan Disposition Patient Dis[facility]LEVEL [facility] Condition: Good Discharge Details Reason For Visit: amputation right great toe Attending Provider: Harris Ashford Primary Care Provider: Anne Horowitz [place] Meds and New Rx's Prescriptions: No Action loperamide 2 mg Capsule 2 mg PO QID PRNRF: 0 cyanocobalamin (vitamin B-12) 1,000 mcg Tablet 1,000 mcg PO DAILY RF: 0 folic acid 1 mg Tablet 1 mg PO DAILY RF: 0 ferrous sulfate 325 mg (65 mg iron) Tablet 325 mg PO BID Qty: 0 RF: 0 Lantus Solostar U-100 Insulin 100 unit/mL (3 mL) insulin pen 60 unit subcut DAILY RF: 0 ascorbic acid (vitamin C) [Vitamin C] 250 mg Tablet 1 tab PO BID RF: 0 Centrum Complete 18-400 mg-mcg Tablet 1 tab PO DAILY RF: 0 venlafaxine 75 mg Capsule,Extended Release 24hr 75 mg PO DAILY RF: 0 acidophilus-pectin, citrus 25 million cell -100 mg Tablet 1 cap PO TID Qty: 0 RF: 0 trazodone 50 mg Tablet 50 mg PO HS Qty: 30 RF: 0 clonidine HCl [Catapres] 0.1 mg Tablet 0.2 mg PO TID Qty: 90 RF: 0 levothyroxine 25 mcg Tablet 25 mcg PO DAILY@0600 Qty: 30 RF: 0 furosemide 40 mg Tablet 40 mg PO BID@0830,1600 Qty: 60 RF: 0 ipratropium-albuterol 0.5 mg-3 mg(2.5 mg base)/3 mL Solution For Nebulization 3 ml UPD Q6H PRN PRNQty: 1 RF: 0 Iodosorb 0.9 % Gel topical DAILY Qty: 60 RF: 0 amlodipine 10 mg Tablet 10 mg PO DAILY Qty: 30 RF: 0 gabapentin 100 mg Capsule 100 mg PO TID Qty: 90 RF: 0 Santyl 250 unit/gram Ointment topical DAILY Qty: 60 RF: 0 fluticasone propionate 50 mcg/actuation [place],Suspension NS DAILY Qty: 1 RF: 0 amoxicillin-pot clavulanate 500-125 mg Tablet 1 tab PO BID Qty: 10 RF: 0 Loan Protect Cream 1 applic topical PRN PRNQty: 60 RF: 0 Loan Protect Cream topical TID Qty: 60 RF: 0 Eliquis 5 mg Tablet 5 mg PO BID Qty: 60 RF: 0 Novolog Flexpen U-100 Insulin 100 unit/mL Insulin Pen See Rx Instructions .ROUTE .COMPLEX Qty: 15 RF: 0 Lantus Solostar U-100 Insulin 100 unit/mL (3 mL) Insulin Pen See Rx Instructions .ROUTE .COMPLEX Qty: 15 RF: 0 levalbuterol HCl 0.63 mg/3 mL Solution For Nebulization 0.63 mg UPD Q2H PRN PRN (Reason: Dyspnea) Qty: 1 RF: 0 prednisone 20 mg Tablet See Rx Instructions .ROUTE .COMPLEX Qty: 60 RF: 0 pantoprazole 40 mg Tablet,Delayed Release (Dr/Ec) 40 mg PO BID@729,1999 Qty: 60 RF: 0 melatonin 3 mg Tablet Extended Release 6 mg PO HS Qty: 30 RF: 0 sodium bicarbonate 650 mg Tablet 650 mg PO TID Qty: 90 RF: 0 trimethobenzamide 300 mg Capsule 300 mg PO TID PRN PRN (Reason: Nausea) Qty: 30 RF: 0 oxycodone 5 mg capsule 5 mg PO Q8H PRN (Reason: pain) Qty: 30 RF: 0 risperidone [Risperdal] 1 mg tablet 2 mg PO HS RF: 0 acetaminophen [Tylenol] 325 mg Tablet 325 - 650 mg PO Q4H PRN PRNQty: 0 RF: 0 hydralazine 10 mg Tablet 10 mg PO TID Qty: 0 RF: 0 terazosin 2 mg Capsule 4 mg PO BID Qty: 0 RF: 0 hydroxyzine HCl 25 mg Tablet 25 mg PO Q6H PRN PRN (Reason: Itching) Qty: 0 RF: 0 magnesium chloride [Mag 64] 64 mg Tablet,Delayed Release (Dr/Ec) 64 mg PO BID Qty: 0 RF: 0 Discharge Instructions Stand Alone Forms: Dejon's Instructions-DSU, DSU Post op Instructions, Scooter Brennan (DSU) Activity:: Elevate Remove Dressings/Wound Care:: Do Not Remove Shower/Bathe:: Cover Diet:: Normal Diet Discharge Orders Discharge Orders: Discharge Order (Routine); Ordered 06/26/18 Ordered By: Harris Ashford DS: Diagnosis Discharge Diagnosis (1) Hallux malleus of right foot: Status: Acute (2) Diabetic ulcer of toe associated with diabetes mellitus due to underlying condition, with bone involvement without evidence of necrosis: Status: Acute
[2018-06-26 09:00] VITALS: BP 151/75; PULSE 55; RESP 16; TEMP 35.5; O2SAT 99
--- NOTE | 2018-06-26 10:35 | ROE_ITS ---
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 POSTOPERATIVE DIAGNOSIS: Same. PROCEDURE: Amputation right great toe with first metatarsal head, primary closure. SURGEON: Alberto CuiPElif. ANESTHESIA: Monitored Anesthesia Care. ANESTHESIA PROVIDER: Chance Valderrama CRNA OPERATIVE INDICATIONS: 58-year-old white male with multiple comorbidities for surgical amputation of the right great toe for resolution of chronic diabetic ulceration and severe deformity of the great toe, which has been unresponsive to nonoperative measures. Brendan understands the permanency of the pr ocedure, as well as risks and complications pertaining to pain, scarring, infection, wound dehiscence potentially requiring revisional procedures. Informed consent has been obtained. There are no prom ises made to the final outcome of surgery. REPORT OF OPERATION: Brendan was brought to the operative suite and placed in the supine position. The right foot was prepped and draped in the usual sterile podiatric fashion. Anesthesia was achieved t hrough IV sedation and local blockade of the great toe utilizing 10 cc's of a 50:50 mixture 1% lidoca ine plain, 0.5% Marcaine plain. The foot was exsanguinated; a well-padded ankle tourniquet inflated 250 mmHg. Attention was directed to the great toe. Two converging, semi-elliptical incisions were placed at th e base of the great toe. We needed to come a little more proximal due to the ulceration on the hallu x, which extended plantarly almost to the thick-thin skin margin, or the flexor set level. The incis ion was then placed dorsally, controlled depth fashion from medial to lateral. The extensor tendon w as visualized and severed. The blade was then placed down to bone at the base of the proximal phalan x, slid proximally and the dorsal joint capsule released. The incision was then made through the ski n plantarly from lateral plantar to medial. The flexor tendons were noted, severed, the blade placed to bone, brought back to the joint capsule proximally, which was incised, and the hallux was removed from the wound. The tissue here was free of any signs of purulence, but the bone was yellow in appe arance. Soft tissue dissection was performed off the head of the first metatarsal and the cartilagin ous cap resected. The bone was extremely soft. All rough and bony edges were rasped smooth. Copiou s irrigation was performed. Products of amputation were sent off to Pathology. The subcutaneous lay er was brought back together with a simple interrupted suture, followed by closure of the skin. #2-0 Nylon was used in a [id number]-owbu-[id number]-far pattern utilizing three of these to bring the wound together w ithout tension; then #3-0 Nylon was used to complete the closure with a combination of [id number]-lgh-[id number]-n ear and simple suture to bring the skin edges together without stress and in good position. The woun d was covered with Xeroform, gauze fluff compression dressings. The tourniquet was released at twent y-one minutes with vascularity returning immediately to the foot. Brendan left the OR with vital signs stable, vascular status intact. Sharp and sponge counts were correct. He will go to Day Surgery and subsequently return to [facility]. I will follow-up with him per protocol. cc: Anne Horowitz M.D. [facility]
== END 2018-06-26 10:01 | disposition intermediate care facility (04) ==
PROVIDERS: PCP Family Medicine; Visit Provider Podiatrist
PROC: (CPT 28111; principal; 2018-06-26 07:30)
DX: E11.621 Type 2 diabetes mellitus with foot ulcer (principal); L97.519 Non-pressure chronic ulcer of other part of right foot with unspecified severity; M20.31 Hallux varus (acquired), right foot
CPT/HCPCS: 28111; 28820; 88300; J0690; J2250

== ENCOUNTER 2018-06-29 10:27 | Outpatient (REF) | payer MEDICARE, MEDICAID, SELFPAY ==
[2018-06-29 11:37] LABS: TSH (W/Ref FT4) 0.64 uIU/mL (0.358-3.74)
== END 2018-06-29 10:47 ==
LOC: LBN 10:27
PROVIDERS: PCP Family Medicine; Visit Provider Family Medicine
DX: E03.9 Hypothyroidism, unspecified (principal)
CPT/HCPCS: 84443

== ENCOUNTER 2018-07-09 08:44 | Emergency (ER) | payer MEDICARE, MEDICAID, SELFPAY ==
[2018-07-09] VITALS (40 sets, daily range): BP systolic 71–156; BP diastolic 54–123; PULSE 69–103; RESP 15–25; TEMP 37.1–39.2; O2SAT 93–96
--- NOTE | 2018-07-09 08:55 | DI.RAD_ITS ---
SYMPTOM/DIAGNOSIS: HYPOTENSIVE, FEVER, ? PNEUMONIA, RT ELBOW REDNESS AND SWELLING, ? OSTEOMYELITIS AP AND LATERAL CHEST: Note is made of elevation of the diaphragm on the left as noted on previous examinations. The lungs are grossly clear. No pleural effusion is seen. CONCLUSION: No evidence of acute change. RIGHT ELBOW: In comparison with the previous examination of 05/26, note is again made of fixation screw in proximal ulna and plate and screw fixation of the distal humerus. No gross interval change in alignment in comparison with the previous examination of 05/26.
--- NOTE | 2018-07-09 08:55 | DI.CT_ITS ---
SYMPTOM/DIAGNOSIS: DECREASED RESPONSIVENESS, WEAKNESS, ? CVA NONCONTRAST HEAD CT: A noncontrast cranial CT was performed. There is moderate generalized cerebral atrophy. There is no evidence of acute intracranial hemorrhage, mass effect or midline shift. The orbital and temporal bone structures appear intact. Paranasal sinuses and mastoid air cells appear well maintained as visualized. CONCLUSION: No evidence of acute intracranial process.
--- NOTE | 2018-07-09 09:06 | W.ED.GENAD ---
Discharge Plan Disposition Patient Disposition: [facility] Condition: Fair Discharge Details Chief Complaint: AMS/LOC Clinical Impression: Sepsis, UTI (urinary tract infection), Cellulitis of elbow, Hyponatremia, Acute on chronic renal insufficiency, Hyperglycemia Primary Care Provider: Anne Horowitz ED Provider: Reny Trejo Home Meds and New Rx's Prescriptions: No Action loperamide 2 mg Capsule 2 mg PO QID PRNRF: 0 cyanocobalamin (vitamin B-12) 1,000 mcg Tablet 1,000 mcg PO DAILY RF: 0 folic acid 1 mg Tablet 1 mg PO DAILY RF: 0 ferrous sulfate 325 mg (65 mg iron) Tablet 325 mg PO BID Qty: 0 RF: 0 Lantus Solostar U-100 Insulin 100 unit/mL (3 mL) insulin pen 60 unit subcut DAILY RF: 0 ascorbic acid (vitamin C) [Vitamin C] 250 mg Tablet 1 tab PO BID RF: 0 Centrum Complete 18-400 mg-mcg Tablet 1 tab PO DAILY RF: 0 venlafaxine 75 mg Capsule,Extended Release 24hr 75 mg PO DAILY RF: 0 acidophilus-pectin, citrus 25 million cell -100 mg Tablet 1 cap PO TID Qty: 0 RF: 0 trazodone 50 mg Tablet 50 mg PO HS Qty: 30 RF: 0 clonidine HCl [Catapres] 0.1 mg Tablet 0.2 mg PO TID Qty: 90 RF: 0 levothyroxine 25 mcg Tablet 25 mcg PO DAILY@0600 Qty: 30 RF: 0 furosemide 40 mg Tablet 40 mg PO BID@0830,1600 Qty: 60 RF: 0 ipratropium-albuterol 0.5 mg-3 mg(2.5 mg base)/3 mL Solution For Nebulization 3 ml UPD Q6H PRN PRNQty: 1 RF: 0 Iodosorb 0.9 % Gel topical DAILY Qty: 60 RF: 0 amlodipine 10 mg Tablet 10 mg PO DAILY Qty: 30 RF: 0 gabapentin 100 mg Capsule 100 mg PO TID Qty: 90 RF: 0 Santyl 250 unit/gram Ointment topical DAILY Qty: 60 RF: 0 fluticasone propionate 50 mcg/actuation [place],Suspension NS DAILY Qty: 1 RF: 0 Loan Protect Cream 1 applic topical PRN PRNQty: 60 RF: 0 Loan Protect Cream topical TID Qty: 60 RF: 0 Eliquis 5 mg Tablet 5 mg PO BID Qty: 60 RF: 0 Novolog Flexpen U-100 Insulin 100 unit/mL Insulin Pen See Rx Instructions .ROUTE .COMPLEX Qty: 15 RF: 0 levalbuterol HCl 0.63 mg/3 mL Solution For Nebulization 0.63 mg UPD Q2H PRN PRN (Reason: Dyspnea) Qty: 1 RF: 0 prednisone 20 mg Tablet See Rx Instructions .ROUTE .COMPLEX Qty: 60 RF: 0 pantoprazole 40 mg Tablet,Delayed Release (Dr/Ec) 40 mg PO BID@729,1999 Qty: 60 RF: 0 melatonin 3 mg Tablet Extended Release 6 mg PO HS Qty: 30 RF: 0 sodium bicarbonate 650 mg Tablet 650 mg PO TID Qty: 90 RF: 0 trimethobenzamide 300 mg Capsule 300 mg PO TID PRN PRN (Reason: Nausea) Qty: 30 RF: 0 risperidone [Risperdal] 1 mg tablet 2 mg PO HS RF: 0 calcium carbonate-vitamin D3 [Calcium 500 + D] 500 mg(1,250mg) -400 unit Tablet 1 tab PO BID RF: 0 oxycodone 5 mg capsule 10 mg PO Q6H RF: 0 Lantus Solostar U-100 Insulin 100 unit/mL (3 mL) insulin pen 60 unit subcut HS RF: 0 acetaminophen [Tylenol] 325 mg Tablet 325 - 650 mg PO Q4H PRN PRNQty: 0 RF: 0 hydralazine 10 mg Tablet 10 mg PO TID Qty: 0 RF: 0 terazosin 2 mg Capsule 4 mg PO BID Qty: 0 RF: 0 hydroxyzine HCl 25 mg Tablet 25 mg PO Q6H PRN PRN (Reason: Itching) Qty: 0 RF: 0 magnesium chloride [Mag 64] 64 mg Tablet,Delayed Release (Dr/Ec) 64 mg PO BID Qty: 0 RF: 0 Discharge Data Discharge Date/Time-TO BE ENTERED AT DEPARTURE: 07/09/18 12:45 Medical Decision Making 58-year-old male with a history of diabetes, hypertension, high cholesterol, obesity, CAD, anxiety, bipolar, hypothyroidism, adrenal insufficiency, CHF, atrial fibrillation who presents for decreased responsiveness, hypotension, and mottling noted in bilateral lower extremities this morning. Temp on arrival 100.4. Patient noted to have dusky color to bilateral lower extremities but skin is warm and distal pulses intact. Patient is > one-week status post right great toe amputation and wound appears to be healing well. He has left foot wounds but they do not appear acutely infected. He has chronic right elbow swelling and pain for the past year per patient -the elbow is warm to touch with erythema and is concerning for acute cellulitis. Blood pressure 97/73. Patient is moaning and drowsy at times but is easily arousable and oriented x3. He is able to follow most commands. He appears generally weak but has more difficulty lifting his right arm. Differential diagnosis includes sepsis due to infection, ACS, electrolyte abnormality, CVA. Will place an IV, bolus IV fluids, labs including lactate, blood cultures, urinalysis, chest x-ray and CT head. 1000 --imaging reviewed and unremarkable. CT head, chest x-ray and elbow x-ray negative for acute findings. UA notes UTI. Presentation appears consistent with sepsis which may be due to UTI versus elbow cellulitis. Will start Vanco, Zosyn. Patient also has a history of adrenal insufficiency, will order hydrocortisone. Systolic blood pressure 90s to 100s. 1020 --discussed with hospitalist and nursing salvage supervisor -currently no ICU or telemetry beds available here. No beds available at [facility]. 1105 --discussed with [facility] hospitalist -accepts patient for transfer. Accepting physician Dr. Zelaya. 1150 --Labs reviewed. White blood cell count 19. Sodium 124. Creatinine 3.61, increased from 2.06 on 06/22. Bicarb 15. Anion gap 12. Lactate 1.5. Glucose 341. Troponin negative. Will continue normal saline. Blood pressure stable at 90s/50s. Does not meet all criteria for DKA but will start insulin drip. Will order VBG. Patient informed of plan and agreeable with plan for transfer. VBG c/w metabolic acidosis with some compensation. pH 7.24, pCO2 33, HCO3 14. Lactate 2.76. Medical Records Medical records reviewed: Yes I reviewed the patient's medical records. Imaging Data Radiologic Study: Radiologist's impression: AP AND LATERAL CHEST: Note is made of elevation of the diaphragm on the left as noted on previous examinations. The lungs are grossly clear. No pleural effusion is seen. CONCLUSION: No evidence of acute change. RIGHT ELBOW: In comparison with the previous examination of 05/26, note is again made of fixation screw in proximal ulna and plate and screw fixation of the distal humerus. No gross interval change in alignment in comparison with the previous examination of 05/26. NONCONTRAST HEAD CT: A noncontrast cranial CT was performed. There is moderate generalized cerebral atrophy. There is no evidence of acute intracranial hemorrhage, mass effect or midline shift. The orbital and temporal bone structures appear intact. Paranasal sinuses and mastoid air cells appear well maintained as visualized. CONCLUSION: No evidence of acute intracranial process. Lab Data Lab results reviewed: Yes I reviewed the patient's lab results. 07/09/18 10:32 Blood Blood Culture - Pending 07/09/18 09:05 Urine - Reflex from Ua Urine Culture - Pending 07/09/18 08:55 Blood Blood Culture - Pending Laboratory Tests Range/Units 07/09/18 07/09/18 07/09/18 09:05 10:32 10:32 Sodium (136-145) mmol/L 124 L* Potassium (3.5-5.1) mmol/L 4.8 Chloride (98-107) mmol/L 96 L Carbon Dioxide (21.0-32.0) mmol/L 15.2 L Anion Gap (3-11) mmol/L 12.8 H BUN (7-18) mg/dL 76 H Creatinine (0.70-1.30) mg/dL 3.61 H* Estimated GFR/1.73 m2 (mL/min/1.73m2) 17.39 Glucose (70-100) mg/dL 341 H Lactate (0.6-1.4) mmol/l 1.5 H Calcium (8.5-10.1) mg/dL 8.9 Magnesium (1.8-2.4) mg/dL 2.0 Total Bilirubin (0.2-1.0) mg/dL 0.4 AST (15-37) U/L 8 L ALT (12-78) U/L 14 Alkaline Phosphatase (46-116) U/L 161 H Troponin I (0.00-0.06) ng/mL 0.02 Total Protein (6.4-8.2) g/dL 7.0 Albumin (3.4-5.0) g/dL 2.3 L Urine Color (Yellow) Yellow Urine Clarity Sl cloudy Urine pH (5-8) 6.0 Ur Specific [place] (1.005-1.025) 1.015 Urine Protein (Negative) mg/dL 100 H Urine Ketones (Negative) mg/dL Negative Urine Blood (Negative) Negative Urine Nitrite (Negative) Negative Urine Bilirubin (Negative) Negative Urine Urobilinogen (Up TO 0.2) EU/dL 0.2 Ur Leukocyte Esterase (Negative) Small H Urine RBC (0-2) Negative Urine WBC (0-5) HPF >50 Ur Epithelial Cells (Negative) HPF Rare Urine Crystals (Negative) HPF Negative Urine Bacteria (Negative) HPF Few Urine Mucus (Negative) Negative Urine Other (Negative) Few yeast Ur Culture Indicated? Yes Urine Glucose (Negative) mg/dL Negative ECG Data Attestation: I personally reviewed and interpreted this ECG (s) as follows: Interpretation: Rate of 84, sinus, no acute ST elevation or depression. QTc 404. QRS 113. HPI General Mode of arrival: EMS. Date/Time Provider Initiated Documentation: 07/09/18 08:55. Limitations to Documentation: other (drowsy, but able to answer some questions). Information obtained by: patient. HPI Narrative: Patient is a 58-year-old male with a history of diabetes, hypertension, hyperlipidemia, CHF, atrial fibrillation/flutter, adrenal insufficiency, bipolar, hypothyroidism who presents from the [facility] for decreased responsiveness and mottling noted to bilateral lower extremities. EMS states that patient also was hypotensive with systolic blood pressure in the 70s. Temp obtained per EMS 100. EMS states the patient was able to answer some questions and was breathing but had decreased responsiveness. Related Data Home Medications Medication Instructions Recorded Confirmed cyanocobalamin (vitamin B-12) 1,000 mcg PO DAILY 12/23/17 07/09/18 folic acid 1 mg PO DAILY 12/23/17 07/09/18 loperamide 2 mg PO QID PRN 12/23/17 07/09/18 ferrous sulfate 325 mg PO BID #0 tab 12/31/17 07/09/18 acetaminophen [Tylenol] 325 - 650 mg PO Q4H PRN PRN #0 tab 02/10/18 07/09/18 hydralazine 10 mg PO TID #0 tab 02/10/18 07/09/18 hydroxyzine HCl 25 mg PO Q6H PRN PRN #0 tab 02/10/18 07/09/18 magnesium chloride [Mag 64] 64 mg PO BID #0 tab 02/10/18 07/09/18 terazosin 4 mg PO BID #0 cap 02/10/18 07/09/18 Centrum Complete 1 tab PO DAILY 03/01/18 07/09/18 Lantus Solostar U-100 Insulin 60 unit SUBCUT DAILY 03/01/18 07/09/18 ascorbic acid (vitamin C) [Vitamin 1 tab PO BID 03/01/18 07/09/18 C] venlafaxine 75 mg PO DAILY 03/03/18 07/09/18 acidophilus-pectin, citrus 1 cap PO TID #0 tab 03/24/18 07/09/18 trazodone 50 mg PO HS #30 tab 05/06/18 07/09/18 amlodipine 10 mg PO DAILY #30 tab 06/19/18 07/09/18 apixaban [Eliquis] 5 mg PO BID #60 tab 06/19/18 07/09/18 cadexomer iodine [Iodosorb] 0 g TOPICAL DAILY #60 g 06/19/18 07/09/18 clonidine HCl [Catapres] 0.2 mg PO TID #90 tab 06/19/18 07/09/18 collagenase clostridium histo. 0 g TOPICAL DAILY #60 g 06/19/18 07/09/18 [Santyl] dimethicone-zinc oxide [Loan 0 g TOPICAL TID #60 g 06/19/18 Protect] dimethicone-zinc oxide [Loan 1 applic TOPICAL PRN PRN #60 g 06/19/18 07/09/18 Protect] fluticasone propionate 0 g NS DAILY #1 g 06/19/18 07/09/18 furosemide 40 mg PO BID@0830,1600 #60 tab 06/19/18 07/09/18 gabapentin 100 mg PO TID #90 cap 06/19/18 07/09/18 insulin aspart U-100 [Novolog See Rx Instructions .ROUTE 06/19/18 07/09/18 Flexpen U-100 Insulin] .COMPLEX #15 ml ipratropium-albuterol 3 ml UPD Q6H PRN PRN #1 startr pk 06/19/18 07/09/18 levalbuterol HCl 0.63 mg UPD Q2H PRN PRN #1 inh 06/19/18 07/09/18 levothyroxine 25 mcg PO DAILY@0600 #30 tab 06/19/18 07/09/18 melatonin 6 mg PO HS #30 tab 06/19/18 07/09/18 pantoprazole 40 mg PO BID@0730,2000 #60 tab 06/19/18 07/09/18 prednisone See Rx Instructions .ROUTE 06/19/18 07/09/18 .COMPLEX #60 tab sodium bicarbonate 650 mg PO TID #90 tab 06/19/18 07/09/18 trimethobenzamide 300 mg PO TID PRN PRN #30 cap 06/19/18 07/09/18 risperidone [Risperdal] 2 mg PO HS 06/23/18 07/09/18 calcium carbonate-vitamin D3 1 tab PO BID 07/09/18 07/09/18 [Calcium 500 + D] insulin glargine [Lantus Solostar 60 unit SUBCUT HS 07/09/18 07/09/18 U-100 Insulin] oxycodone 10 mg PO Q6H 07/09/18 07/09/18 Previous Rx's Medication Instructions Recorded ferrous sulfate 325 mg PO BID #0 tab 12/31/17 acetaminophen [Tylenol] 325 - 650 mg PO Q4H PRN PRN #0 tab 02/10/18 hydralazine 10 mg PO TID #0 tab 02/10/18 hydroxyzine HCl 25 mg PO Q6H PRN PRN #0 tab 02/10/18 magnesium chloride [Mag 64] 64 mg PO BID #0 tab 02/10/18 terazosin 4 mg PO BID #0 cap 02/10/18 acidophilus-pectin, citrus 1 cap PO TID #0 tab 03/24/18 trazodone 50 mg PO HS #30 tab 05/06/18 amlodipine 10 mg PO DAILY #30 tab 06/19/18 apixaban [Eliquis] 5 mg PO BID #60 tab 06/19/18 cadexomer iodine [Iodosorb] 0 g TOPICAL DAILY #60 g 06/19/18 clonidine HCl [Catapres] 0.2 mg PO TID #90 tab 06/19/18 collagenase clostridium histo. 0 g TOPICAL DAILY #60 g 06/19/18 [Santyl] dimethicone-zinc oxide [Loan 0 g TOPICAL TID #60 g 06/19/18 Protect] dimethicone-zinc oxide [Loan 1 applic TOPICAL PRN PRN #60 g 06/19/18 Protect] fluticasone propionate 0 g NS DAILY #1 g 06/19/18 furosemide 40 mg PO BID@0830,1600 #60 tab 06/19/18 gabapentin 100 mg PO TID #90 cap 06/19/18 insulin aspart U-100 [Novolog See Rx Instructions .ROUTE 06/19/18 Flexpen U-100 Insulin] .COMPLEX #15 ml ipratropium-albuterol 3 ml UPD Q6H PRN PRN #1 startr pk 06/19/18 levalbuterol HCl 0.63 mg UPD Q2H PRN PRN #1 inh 06/19/18 levothyroxine 25 mcg PO DAILY@0600 #30 tab 06/19/18 melatonin 6 mg PO HS #30 tab 06/19/18 pantoprazole 40 mg PO BID@0730,2000 #60 tab 06/19/18 prednisone See Rx Instructions .ROUTE 06/19/18 .COMPLEX #60 tab sodium bicarbonate 650 mg PO TID #90 tab 06/19/18 trimethobenzamide 300 mg PO TID PRN PRN #30 cap 06/19/18 Allergies Allergy/AdvReac Type Severity Reaction Status Date / Time No Known Allergies Allergy Verified 07/09/18 09:05 General Stated Complaint: AMS/LOC YVES: 2 Review of Systems Review of Systems All systems reviewed & are unremarkable except as noted in HPI and below Constitutional Reports as per HPI, Denies chills and Denies fever(s) Eyes Denies blurry vision ENT Denies dizziness, Denies sore throat and Denies throat swelling Cardiovascular Denies chest pain and Denies dyspnea Respiratory Denies cough and Denies dyspnea Gastrointestinal Denies abdominal pain, Denies diarrhea and Denies vomiting Genitourinary Denies hematuria and Denies dysuria Musculoskeletal Denies back pain and Denies numbness Integumentary/Breasts Denies lesions and Denies rash Neurologic Denies dizziness, Denies focal weakness and Denies numbness Allergic/Immunologic Denies throat swelling [facility] Medical History 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 (Acute) 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) Palliative care encounter (Acute) Pulmonary hypertension (Chronic) Toxic metabolic encephalopathy (Resolved) Advance directive on file (Chronic) Chronic cholecystitis (Chronic) 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 2 diabetes mellitus (Ruled-out) HCAP (healthcare-associated pneumonia) (Resolved) MRSA bacteremia (Resolved) Ambulatory dysfunction (Chronic) Diabetic foot ulcer (Chronic) Poorly controlled type 2 diabetes mellitus with circulatory disorder (Chronic) Adrenal insufficiency (Chronic) CKD (chronic kidney disease) (Chronic) Cardiopulmonary arrest with successful resuscitation (Resolved) Heme positive stool (Chronic) Sepsis (Resolved) Pedal edema (Chronic) Chronic insomnia (Chronic) Hypertension (Chronic) Chronic pain (Chronic) Hypothyroidism (Chronic) Obesity (Chronic) Back pain (Chronic 06/21/13) Inability to get out of bed (Chronic 06/21/13) Poor self care (Chronic 06/21/13) Chronic bipolar disorder (Chronic) CAD (coronary artery disease) (Chronic) Dyslipidemia (Chronic) Rheumatoid arthritis (Chronic) Osteoarthritis of both knees (Chronic) Cholelithiasis (Chronic) Impaired mobility and ADLs (Chronic) Hemorrhagic cystitis (Inactive) Anemia (Chronic) Chronic anxiety (Chronic) Ulcerative colitis (Chronic) Surgical History History of insertion of T-tube into biliary tract (Chronic) S/P colectomy (Chronic) Arthroplasty of knee (Resolved 03/18/12) Fracture, Open Treatment (Resolved) Social History Smoking/Tobacco Use Status: Former Tobacco Use Alcohol Intake: former Drug use: Rarely Substance use type: marijuana Housing: halfway Do you feel safe at home: Yes Exam Const General: cooperative, no acute distress and ill appearing chronically HENMT Head: normal to inspection Face and sinus: normal facial exam Eyes General: appearance normal, both eyes and all related structures Pupils: PERRL EOM: EOM intact bilaterally Neck Neck: normal visual inspection and No submandibular swelling Lymphatic: no lymphadenopathy noted Chest Chest: normal inspection of the chest and no tenderness Resp Effort & Inspection: normal respiratory effort and able to speak in complete sentences Auscultation: clear to auscultation bilaterally Cardio Rate: regular rate Rhythm: regular rhythm GI Inspection: other (cholecystostomy tube RUQ with no signs of skin infection) Palpation: soft, not firm, not rigid and nontender Auscultation: normal bowel sounds Male General Exam: Yes normal external exam Skin General skin exam: no rashes or lesions noted Neuro General: oriented x3 and other (drowsy but arousable) Cognition: normal cognition Speech: speech normal Motor: other (generalized weakness throughout. 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 Bilateral DP/PT pulses intact. Skin warm to touch. Site of right great toe amputation with sutures in place and no erythema, edema, drainage, induration or fluctuance. 3 excoriated dried ulcers noted on bottom of left foot near toes and ball of foot without edema, erythema, drainage, or abscess. Psych Appearance: grossly normal Mental Status: mental status grossly normal Speech and Movement: speech and movement normal Affect: normal affect Course Vital Signs Temperature 100.5 F H 07/09/18 08:45 Pulse 87 07/09/18 08:45 Respiratory Rate 21 07/09/18 08:45 Blood Pressure 97/73 L 07/09/18 08:45 Pulse Oximetry 95 07/09/18 08:45 Temperature 100.5 F H 07/09/18 08:45 Temperature Source Oral 07/09/18 08:45 Pulse 87 07/09/18 08:45 Respiratory Rate 21 07/09/18 08:45 Respiratory Effort Non-Labored 07/09/18 08:45 Blood Pressure 97/73 L 07/09/18 08:45 Blood Pressure Position Sitting 07/09/18 08:45 Pulse Oximetry 95 07/09/18 08:45 Oxygen Delivery Method Room Air 07/09/18 08:45 Oxygen Flow Rate 0 07/09/18 08:45 Lab/Test Results Lab/Test Results: 07/09/18 08:55 Blood Blood Culture - Pending 07/09/18 08:55 Blood Blood Culture - Pending
--- NOTE | 2018-07-09 09:12 | ED.GENADUL_ITS ---
Discharge Plan Disposition Patient Disposition: [facility] Condition: Fair Discharge Details Chief Complaint: AMS/LOC Clinical Impression: Sepsis, UTI (urinary tract infection), Cellulitis of elbow, Hyponatremia, Acute on chronic renal insufficiency, Hyperglycemia Primary Care Provider: Anne Horowitz ED Provider: Reny Trejo Home Meds and New Rx's Prescriptions: No Action loperamide 2 mg Capsule 2 mg PO QID PRNRF: 0 cyanocobalamin (vitamin B-12) 1,000 mcg Tablet 1,000 mcg PO DAILY RF: 0 folic acid 1 mg Tablet 1 mg PO DAILY RF: 0 ferrous sulfate 325 mg (65 mg iron) Tablet 325 mg PO BID Qty: 0 RF: 0 Lantus Solostar U-100 Insulin 100 unit/mL (3 mL) insulin pen 60 unit subcut DAILY RF: 0 ascorbic acid (vitamin C) [Vitamin C] 250 mg Tablet 1 tab PO BID RF: 0 Centrum Complete 18-400 mg-mcg Tablet 1 tab PO DAILY RF: 0 venlafaxine 75 mg Capsule,Extended Release 24hr 75 mg PO DAILY RF: 0 acidophilus-pectin, citrus 25 million cell -100 mg Tablet 1 cap PO TID Qty: 0 RF: 0 trazodone 50 mg Tablet 50 mg PO HS Qty: 30 RF: 0 clonidine HCl [Catapres] 0.1 mg Tablet 0.2 mg PO TID Qty: 90 RF: 0 levothyroxine 25 mcg Tablet 25 mcg PO DAILY@0600 Qty: 30 RF: 0 furosemide 40 mg Tablet 40 mg PO BID@0830,1600 Qty: 60 RF: 0 ipratropium-albuterol 0.5 mg-3 mg(2.5 mg base)/3 mL Solution For Nebulization 3 ml UPD Q6H PRN PRNQty: 1 RF: 0 Iodosorb 0.9 % Gel topical DAILY Qty: 60 RF: 0 amlodipine 10 mg Tablet 10 mg PO DAILY Qty: 30 RF: 0 gabapentin 100 mg Capsule 100 mg PO TID Qty: 90 RF: 0 Santyl 250 unit/gram Ointment topical DAILY Qty: 60 RF: 0 fluticasone propionate 50 mcg/actuation [place],Suspension NS DAILY Qty: 1 RF: 0 Loan Protect Cream 1 applic topical PRN PRNQty: 60 RF: 0 Loan Protect Cream topical TID Qty: 60 RF: 0 Eliquis 5 mg Tablet 5 mg PO BID Qty: 60 RF: 0 Novolog Flexpen U-100 Insulin 100 unit/mL Insulin Pen See Rx Instructions .ROUTE .COMPLEX Qty: 15 RF: 0 levalbuterol HCl 0.63 mg/3 mL Solution For Nebulization 0.63 mg UPD Q2H PRN PRN (Reason: Dyspnea) Qty: 1 RF: 0 prednisone 20 mg Tablet See Rx Instructions .ROUTE .COMPLEX Qty: 60 RF: 0 pantoprazole 40 mg Tablet,Delayed Release (Dr/Ec) 40 mg PO BID@729,1999 Qty: 60 RF: 0 melatonin 3 mg Tablet Extended Release 6 mg PO HS Qty: 30 RF: 0 sodium bicarbonate 650 mg Tablet 650 mg PO TID Qty: 90 RF: 0 trimethobenzamide 300 mg Capsule 300 mg PO TID PRN PRN (Reason: Nausea) Qty: 30 RF: 0 risperidone [Risperdal] 1 mg tablet 2 mg PO HS RF: 0 calcium carbonate-vitamin D3 [Calcium 500 + D] 500 mg(1,250mg) -400 unit Tablet 1 tab PO BID RF: 0 oxycodone 5 mg capsule 10 mg PO Q6H RF: 0 Lantus Solostar U-100 Insulin 100 unit/mL (3 mL) insulin pen 60 unit subcut HS RF: 0 acetaminophen [Tylenol] 325 mg Tablet 325 - 650 mg PO Q4H PRN PRNQty: 0 RF: 0 hydralazine 10 mg Tablet 10 mg PO TID Qty: 0 RF: 0 terazosin 2 mg Capsule 4 mg PO BID Qty: 0 RF: 0 hydroxyzine HCl 25 mg Tablet 25 mg PO Q6H PRN PRN (Reason: Itching) Qty: 0 RF: 0 magnesium chloride [Mag 64] 64 mg Tablet,Delayed Release (Dr/Ec) 64 mg PO BID Qty: 0 RF: 0 Discharge Data Discharge Date/Time-TO BE ENTERED AT DEPARTURE: 07/09/18 12:45 Medical Decision Making 58-year-old male with a history of diabetes, hypertension, high cholesterol, obesity, CAD, anxiety, bipolar, hypothyroidism, adrenal insufficiency, CHF, atrial fibrillation who presents for decreased responsiveness, hypotension, and mottling noted in bilateral lower extremities this morning. Temp on arrival 100.4. Patient noted to have dusky color to bilateral lower extremities but skin is warm and distal pulses intact. Patient is > one-week status post right great toe amputation and wound appears to be healing well. He has left foot wounds but they do not appear acutely infected. He has chronic right elbow swelling and pain for the past year per patient -the elbow is warm to touch with erythema and is concerning for acute cellulitis. Blood pressure 97/73. Patient is moaning and drowsy at times but is easily arousable and oriented x3. He is able to follow most commands. He appears generally weak but has more difficulty lifting his right arm. Differential diagnosis includes sepsis due to infection, ACS, electrolyte abnormality, CVA. Will place an IV, bolus IV fluids, labs including lactate, blood cultures, urinalysis, chest x-ray and CT head. 1000 --imaging reviewed and unremarkable. CT head, chest x-ray and elbow x-ray negative for acute findings. UA notes UTI. Presentation appears consistent with sepsis which may be due to UTI versus elbow cellulitis. Will start Vanco, Zosyn. Patient also has a history of adrenal insufficiency, will order hyd rocortisone. Systolic blood pressure 90s to 100s. 1020 --discussed with hospitalist and nursing supervisor veneer -currently no ICU or telemetry beds available here. No beds available at [facility]. 1105 --discussed with [facility] hospitalist -accepts patient for transfer. Accepting physician Dr. Zelaya. 1150 --Labs reviewed. White blood cell count 19. Sodium 124. Creatinine 3.61, increased from 2.06 on 06/22. Bicarb 15. Anion gap 12. Lactate 1.5. Glucose 341. Troponin negative. Will continue normal saline. Blood pressure stable at 90s/50s. Does not meet all criteria for DKA but will start insulin drip. Will order VBG. Patient informed of plan and agreeable with plan for transfer. VBG c/w metabolic acidosis with some compensation. pH 7.24, pCO2 33, HCO3 14. Lactate 2.76. Medical Records Medical records reviewed: Yes I reviewed the patient's medical records. Imaging Data Radiologic Study: Radiologist's impression: AP AND LATERAL CHEST: Note is made of elevation of the diaphragm on the left as noted on previous examinations. The lungs are grossly clear. No pleural effusion is seen. CONCLUSION: No evidence of acute change. RIGHT ELBOW: In comparison with the previous examination of 05/26, note is again made of fixation screw in proximal ulna and plate and screw fixation of the distal humerus. No gross interval change in alignment in comparison with the previous examination of 05/26. NONCONTRAST HEAD CT: A noncontrast cranial CT was performed. There is moderate generalized cerebral atrophy. There is no evidence of acute intracranial hemorrhage, mass effect or midline shift. The orbital and temporal bone structures appear intact. Paranasal sinuses and mastoid air cells appear well maintained as visualized. CONCLUSION: No evidence of acute intracranial process. Lab Data Lab results reviewed: Yes I reviewed the patient's lab results. 07/09/18 10:32 Blood Blood Culture - Pending 07/09/18 09:05 Urine - Reflex from Ua Urine Culture - Pending 07/09/18 08:55 Blood Blood Culture - Pending Laboratory Tests Range/Units 07/09/18 07/09/18 07/09/18 09:05 10:32 10:32 Sodium (136-145) mmol/L 124 L* Potassium (3.5-5.1) mmol/L 4.8 Chloride (98-107) mmol/L 96 L Carbon Dioxide (21.0-32.0) mmol/L 15.2 L Anion Gap (3-11) mmol/L 12.8 H BUN (7-18) mg/dL 76 H Creatinine (0.70-1.30) mg/dL 3.61 H* Estimated GFR/1.73 m2 (mL/min/1.73m2) 17.39 Glucose (70-100) mg/dL 341 H Lactate (0.6-1.4) mmol/l 1.5 H Calcium (8.5-10.1) mg/dL 8.9 Magnesium (1.8-2.4) mg/dL 2.0 Total Bilirubin (0.2-1.0) mg/dL 0.4 AST (15-37) U/L 8 L ALT (12-78) U/L 14 Alkaline Phosphatase (46-116) U/L 161 H Troponin I (0.00-0.06) ng/mL 0.02 Total Protein (6.4-8.2) g/dL 7.0 Albumin (3.4-5.0) g/dL 2.3 L Urine Color (Yellow) Yellow Urine Clarity Sl cloudy Urine pH (5-8) 6.0 Ur Specific [place] (1.005-1.025) 1.015 Urine Protein (Negative) mg/dL 100 H Urine Ketones (Negative) mg/dL Negative Urine Blood (Negative) Negative Urine Nitrite (Negative) Negative Urine Bilirubin (Negative) Negative Urine Urobilinogen (Up TO 0.2) EU/dL 0.2 Ur Leukocyte Esterase (Negative) Small H Urine RBC (0-2) Negative Urine WBC (0-5) HPF >50 Ur Epithelial Cells (Negative) HPF Rare Urine Crystals (Negative) HPF Negative Urine Bacteria (Negative) HPF Few Urine Mucus (Negative) Negative Urine Other (Negative) Few yeast Ur Culture Indicated? Yes Urine Glucose (Negative) mg/dL Negative ECG Data Attestation: I personally reviewed and interpreted this ECG (s) as follows: Interpretation: Rate of 84, sinus, no acute ST elevation or depression. QTc 404. QRS 113. HPI General Mode of arrival: EMS . Date/Time Provider Initiated Documentation: 07/09/18 08:55 . Limitations to Documentation: other (drowsy, but able to answer some questions) . Information obtained by: patient . HPI Narrative: Patient is a 58-year-old male with a history of diabetes, hypertension, hyperlipidemia, CHF, atrial fibrillation/flutter, adrenal insufficiency, bipolar, hypothyroidism who presents from the [facility] for decreased responsiveness and mottling noted to bilateral lower extremities. EMS states that patient also was hypotensive with systolic blood pressure in the 70s. Temp obtained per EMS 100. EMS states the patient was able to answer some questions and was breathing but had decreased responsiveness. Related Data Home Medications Medication Instructions Recorded Confirmed cyanocobalamin (vitamin B-12) 1,000 mcg PO DAILY 12/23/17 07/09/18 folic acid 1 mg PO DAILY 12/23/17 07/09/18 loperamide 2 mg PO QID PRN 12/23/17 07/09/18 ferrous sulfate 325 mg PO BID #0 tab 12/31/17 07/09/18 acetaminophen [Tylenol] 325 - 650 mg PO Q4H PRN PRN #0 tab 02/10/18 07/09/18 hydralazine 10 mg PO TID #0 tab 02/10/18 07/09/18 hydroxyzine HCl 25 mg PO Q6H PRN PRN #0 tab 02/10/18 07/09/18 magnesium chloride [Mag 64] 64 mg PO BID #0 tab 02/10/18 07/09/18 terazosin 4 mg PO BID #0 cap 02/10/18 07/09/18 Centrum Complete 1 tab PO DAILY 03/01/18 07/09/18 Lantus Solostar U-100 Insulin 60 unit SUBCUT DAILY 03/01/18 07/09/18 ascorbic acid (vitamin C) [Vitamin 1 tab PO BID 03/01/18 07/09/18 C] venlafaxine 75 mg PO DAILY 03/03/18 07/09/18 acidophilus-pectin, citrus 1 cap PO TID #0 tab 03/24/18 07/09/18 trazodone 50 mg PO HS #30 tab 05/06/18 07/09/18 amlodipine 10 mg PO DAILY #30 tab 06/19/18 07/09/18 apixaban [Eliquis] 5 mg PO BID #60 tab 06/19/18 07/09/18 cadexomer iodine [Iodosorb] 0 g TOPICAL DAILY #60 g 06/19/18 07/09/18 clonidine HCl [Catapres] 0.2 mg PO TID #90 tab 06/19/18 07/09/18 collagenase clostridium histo. 0 g TOPICAL DAILY #60 g 06/19/18 07/09/18 [Santyl] dimethicone-zinc oxide [Loan 0 g TOPICAL TID #60 g 06/19/18 Protect] dimethicone-zinc oxide [Loan 1 applic TOPICAL PRN PRN #60 g 06/19/18 07/09/18 Protect] fluticasone propionate 0 g NS DAILY #1 g 06/19/18 07/09/18 furosemide 40 mg PO BID@0830,1600 #60 tab 06/19/18 07/09/18 gabapentin 100 mg PO TID #90 cap 06/19/18 07/09/18 insulin aspart U-100 [Novolog See Rx Instructions .ROUTE 06/19/18 07/09/18 Flexpen U-100 Insulin] .COMPLEX #15 ml ipratropium-albuterol 3 ml UPD Q6H PRN PRN #1 startr pk 06/19/18 07/09/18 levalbuterol HCl 0.63 mg UPD Q2H PRN PRN #1 inh 06/19/18 07/09/18 levothyroxine 25 mcg PO DAILY@0600 #30 tab 06/19/18 07/09/18 melatonin 6 mg PO HS #30 tab 06/19/18 07/09/18 pantoprazole 40 mg PO BID@0730,2000 #60 tab 06/19/18 07/09/18 prednisone See Rx Instructions .ROUTE 06/19/18 07/09/18 .COMPLEX #60 tab sodium bicarbonate 650 mg PO TID #90 tab 06/19/18 07/09/18 trimethobenzamide 300 mg PO TID PRN PRN #30 cap 06/19/18 07/09/18 risperidone [Risperdal] 2 mg PO HS 06/23/18 07/09/18 calcium carbonate-vitamin D3 1 tab PO BID 07/09/18 07/09/18 [Calcium 500 + D] insulin glargine [Lantus Solostar 60 unit SUBCUT HS 07/09/18 07/09/18 U-100 Insulin] oxycodone 10 mg PO Q6H 07/09/18 07/09/18 Previous Rx's Medication Instructions Recorded ferrous sulfate 325 mg PO BID #0 tab 12/31/17 acetaminophen [Tylenol] 325 - 650 mg PO Q4H PRN PRN #0 tab 02/10/18 hydralazine 10 mg PO TID #0 tab 02/10/18 hydroxyzine HCl 25 mg PO Q6H PRN PRN #0 tab 02/10/18 magnesium chloride [Mag 64] 64 mg PO BID #0 tab 02/10/18 terazosin 4 mg PO BID #0 cap 02/10/18 acidophilus-pectin, citrus 1 cap PO TID #0 tab 03/24/18 trazodone 50 mg PO HS #30 tab 05/06/18 amlodipine 10 mg PO DAILY #30 tab 06/19/18 apixaban [Eliquis] 5 mg PO BID #60 tab 06/19/18 cadexomer iodine [Iodosorb] 0 g TOPICAL DAILY #60 g 06/19/18 clonidine HCl [Catapres] 0.2 mg PO TID #90 tab 06/19/18 collagenase clostridium histo. 0 g TOPICAL DAILY #60 g 06/19/18 [Santyl] dimethicone-zinc oxide [Loan 0 g TOPICAL TID #60 g 06/19/18 Protect] dimethicone-zinc oxide [Loan 1 applic TOPICAL PRN PRN #60 g 06/19/18 Protect] fluticasone propionate 0 g NS DAILY #1 g 06/19/18 furosemide 40 mg PO BID@0830,1600 #60 tab 06/19/18 gabapentin 100 mg PO TID #90 cap 06/19/18 insulin aspart U-100 [Novolog See Rx Instructions .ROUTE 06/19/18 Flexpen U-100 Insulin] .COMPLEX #15 ml ipratropium-albuterol 3 ml UPD Q6H PRN PRN #1 startr pk 06/19/18 levalbuterol HCl 0.63 mg UPD Q2H PRN PRN #1 inh 06/19/18 levothyroxine 25 mcg PO DAILY@0600 #30 tab 06/19/18 melatonin 6 mg PO HS #30 tab 06/19/18 pantoprazole 40 mg PO BID@0730,2000 #60 tab 06/19/18 prednisone See Rx Instructions .ROUTE 06/19/18 .COMPLEX #60 tab sodium bicarbonate 650 mg PO TID #90 tab 06/19/18 trimethobenzamide 300 mg PO TID PRN PRN #30 cap 06/19/18 Allergies Allergy/AdvReac Type Severity Reaction Status Date / Time No Known Allergies Allergy Verified 07/09/18 09:05 General Stated Complaint: AMS/LOC YVES: 2 Review of Systems Review of Systems All systems reviewed & are unremarkable except as noted in HPI and below Constitutional Reports as per HPI, Denies chills and Denies fever(s) Eyes Denies blurry vision ENT Denies dizziness, Denies sore throat and Denies throat swelling Cardiovascular Denies chest pain and Denies dyspnea Respiratory Denies cough and Denies dyspnea Gastrointestinal Denies abdominal pain, Denies diarrhea and Denies vomiting Genitourinary Denies hematuria and Denies dysuria Musculoskeletal Denies back pain and Denies numbness Integumentary/Breasts Denies lesions and Denies rash Neurologic Denies dizziness, Denies focal weakness and Denies numbness Allergic/Immunologic Denies throat swelling [facility] Medical History 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 (Acute) 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) Palliative care encounter (Acute) Pulmonary hypertension (Chronic) Toxic metabolic encephalopathy (Resolved) Advance directive on file (Chronic) Chronic cholecystitis (Chronic) 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 2 diabetes mellitus (Ruled-out) HCAP (healthcare-associated pneumonia) (Resolved) MRSA bacteremia (Resolved) Ambulatory dysfunction (Chronic) Diabetic foot ulcer (Chronic) Poorly controlled type 2 diabetes mellitus with circulatory disorder (Chronic) Adrenal insufficiency (Chronic) CKD (chronic kidney disease) (Chronic) Cardiopulmonary arrest with successful resuscitation (Resolved) Heme positive stool (Chronic) Sepsis (Resolved) Pedal edema (Chronic) Chronic insomnia (Chronic) Hypertension (Chronic) Chronic pain (Chronic) Hypothyroidism (Chronic) Obesity (Chronic) Back pain (Chronic 06/21/13) Inability to get out of bed (Chronic 06/21/13) Poor self care (Chronic 06/21/13) Chronic bipolar disorder (Chronic) CAD (coronary artery disease) (Chronic) Dyslipidemia (Chronic) Rheumatoid arthritis (Chronic) Osteoarthritis of both knees (Chronic) Cholelithiasis (Chronic) Impaired mobility and ADLs (Chronic) Hemorrhagic cystitis (Inactive) Anemia (Chronic) Chronic anxiety (Chronic) Ulcerative colitis (Chronic) Surgical History History of insertion of T-tube into biliary tract (Chronic) S/P colectomy (Chronic) Arthroplasty of knee (Resolved 03/18/12) Fracture, Open Treatment (Resolved) Social History Smoking/Tobacco Use Status: Former Tobacco Use Alcohol Intake: former Drug use: Rarely Substance use type: marijuana Housing: detention Do you feel safe at home: Yes Exam Const General: cooperative, no acute distress and ill appearing chronically HENMT Head: normal to inspection Face and sinus: normal facial exam Eyes General: appearance normal, both eyes and all related structures Pupils: PERRL EOM: EOM intact bilaterally Neck Neck: normal visual inspection and No submandibular swelling Lymphatic: no lymphadenopathy noted Chest Chest: normal inspection of the chest and no tenderness Resp Effort & Inspection: normal respiratory effort and able to speak in complete sentences Auscultation: clear to auscultation bilaterally Cardio Rate: regular rate Rhythm: regular rhythm GI Inspection: other (cholecystostomy tube RUQ with no signs of skin infection) Palpation: soft, not firm, not rigid and nontender Auscultation: normal bowel sounds Male General Exam: Yes normal external exam Skin General skin exam: no rashes or lesions noted Neuro General: oriented x3 and other (drowsy but arousable) Cognition: normal cognition Speech: speech normal Motor: other (generalized weakness throughout. 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 Bilateral DP/PT pulses intact. Skin warm to touch. Site of right great toe amputation with sutures in place and no erythema, edema, drainage, induration or fluctuance. 3 excoriated dried ulcers noted on bottom of left foot near toes and ball of foot without edema, erythema, drainage, or abscess. Psych Appearance: grossly normal Mental Status: mental status grossly normal Speech and Movement: speech and movement normal Affect: normal affect Course Vital Signs Temperature 100.5 F H 07/09/18 08:45 Pulse 87 07/09/18 08:45 Respiratory Rate 21 07/09/18 08:45 Blood Pressure 97/73 L 07/09/18 08:45 Pulse Oximetry 95 07/09/18 08:45 Temperature 100.5 F H 07/09/18 08:45 Temperature Source Oral 07/09/18 08:45 Pulse 87 07/09/18 08:45 Respiratory Rate 21 07/09/18 08:45 Respiratory Effort Non-Labored 07/09/18 08:45 Blood Pressure 97/73 L 07/09/18 08:45 Blood Pressure Position Sitting 07/09/18 08:45 Pulse Oximetry 95 07/09/18 08:45 Oxygen Delivery Method Room Air 07/09/18 08:45 Oxygen Flow Rate 0 07/09/18 08:45 Lab/Test Results Lab/Test Results: 07/09/18 08:55 Blood Blood Culture - Pending 07/09/18 08:55 Blood Blood Culture - Pending
[2018-07-09 09:13] LABS: Bilirubin Negative (Negative); Blood Negative (Negative); Clarity Sl Cloudy; Glucose Negative (Negative); Ketones Negative (Negative); Leukocyte Esterase Small (Negative); Nitrite Negative (Negative); Specific Gravity 1.015 (1.005-1.025); Urobilinogen 0.2 EU/dL (Up TO 0.2)
[2018-07-09 09:30] LABS: Epithelial Cells Rare HPF (Negative); RBC Negative (0-2); WBC >50 HPF (0-5)
[2018-07-09 09:31] LABS: Bacteria Few HPF (Negative); Crystals Negative HPF (Negative); Mucus Negative (Negative); Other Cells Few Yeast (Negative)
[2018-07-09 09:32] LABS: C & S Indicated? Yes
[2018-07-09] MEDS: Normal Saline 250 ML IV (10:00)
[2018-07-09] MEDS: ACETAMINOPHEN 1,000 MG/100 ML BTL 400 MG (10:08)
[2018-07-09] MEDS: Normal Saline Flush 10 ML SYR IVP (10:18)
[2018-07-09 10:39] LABS: Lactate-non-spesis 1.5 mmol/l (0.6-1.4)
[2018-07-09] MEDS: PIPERACILLIN/TAZO 3.375 GM in Normal Saline 50 ML IVPB (10:42)
[2018-07-09] MEDS: Hydrocortisone SOD SUC. 100 MG VIAL IVP (10:47)
[2018-07-09 10:58] LABS: ALT 14 U/L (12-78); AST 8 U/L (15-37); Albumin 2.3 g/dL (3.4-5.0); Alkaline Phosphatase 161 U/L (46-116); Anion Gap 12.8 mmol/L (3-11); BUN 76 mg/dL (7-18); Bilirubin, Total 0.4 mg/dL (0.2-1.0); CO2 15.2 mmol/L (21.0-32.0); Calcium 8.9 mg/dL (8.5-10.1); Chloride 96 mmol/L (98-107); Estimated GFR 17.39 (mL/min/1.73m2); Glucose 341 mg/dL (70-100); Potassium 4.8 mmol/L (3.5-5.1); Troponin I 0.02 ng/mL (0.00-0.06)
[2018-07-09 11:10] LABS: CREATININE 3.61 mg/dL (0.70-1.30)
[2018-07-09 11:11] LABS: Sodium 124 mmol/L (136-145)
[2018-07-09 11:29] LABS: HCO3 (Venous) 14 mmol/L (22-28); O2 Sat (Venous) 96 % (70-80); TCO2 (Venous) 13 mmol/L (22-29); pCO2 (Venous) 33 mm/Hg (34-47); pH (Venous) 7.24 (7.32-7.43); pO2 (Venous) 78 mm/Hg (28-44)
[2018-07-09 11:32] LABS: Absolute Lymphocyte Count 0.58 k/cumm (1.2-3.4); Absolute Monocyte Count 1.45 k/cumm (0.11-0.7); Basophils % 0.2; Eosinophils % 0.4; HCT 36.3 % (40.0-50.0); Lymphocytes % 2.9; Mean Corp. HGB Concentration 33.1 g/dL (32.0-36.0); Mean Corpuscular Hemoglobin 24.3 pg (27.0-33.0); Mean Corpuscular Volume 73.6 fL (80-95); Mean Platelet Volume 11.3 fL (8.0-11.0); Monocytes % 7.3; Neutrophils % 88.2; Platelet Count 284 x1000/uL (130-400); RBC 4.93 m/cumm (4.50-6.00); White Blood Cell Count 19.92 k/cumm (4.4-10.8)
[2018-07-09 11:34] LABS: Absolute Basophil Count 0.04 k/cumm (0.0-0.2); Absolute Eosinophil Count 0.08 k/cumm (0.0-0.7); Absolute Neutrophil Count 17.57 k/cumm (1.2-6.7)
[2018-07-09 11:51] LABS: Anisocytosis 2+; Diff Comment RBC Morph Reviewed; Hypochromasia 3+; Microcytosis 3+; Ovalocytes 2+; PTT Activated 30.9 sec (21.0-31.4); Prothrombin Time 10.1 sec (9.3-11.0)
[2018-07-09 11:52] LABS: Poikilocytes 2+
[2018-07-09] MEDS: Normal Saline 1,000 ML 100 ML IV (12:46)
== END 2018-07-09 12:45 ==
PROVIDERS: Emergency Provider Physician Assistant; PCP Family Medicine
DX: A41.9 Sepsis, unspecified organism (principal); L03.113 Cellulitis of right upper limb; N39.0 Urinary tract infection, site not specified; E87.1 Hypo-osmolality and hyponatremia; N17.9 Acute kidney failure, unspecified; N18.9 Chronic kidney disease, unspecified; E11.65 Type 2 diabetes mellitus with hyperglycemia; E11.22 Type 2 diabetes mellitus with diabetic chronic kidney disease; Z79.4 Long term (current) use of insulin; I13.0 Hypertensive heart and chronic kidney disease with heart failure and stage 1 through stage 4 chronic kidney disease, or unspecified chronic kidney disease; I50.9 Heart failure, unspecified; I48.91 Unspecified atrial fibrillation
CPT/HCPCS: 36415; 80053; 82805; 87040; 93005; 96361; 96365; 96367; 99285; 70450; 71046; 73080; 81003; 81015; 83605; 83735; 84484; 85025; 85610; 85730; 87086; 93010; J0131; J1720; J2543; J3370

== ENCOUNTER 2018-07-18 15:45 | Inpatient (IN) | payer MEDICARE, MEDICAID, SELFPAY ==
--- NOTE | 2018-07-18 14:45 | W.PM.HP.N ---
Date of service: 07/18/18 Time of Service: 16:30 Assessment and Plan (1) Septic arthritis of elbow, right: Current visit: No Status: Acute With Hardware in place, would likely explain patient's bouts of recurrent bacteremia. Previous work-up included CT of the elbow in May. - Patient is s/p Hardware removal on 07/10, with washout on 07/11. - [place] to be removed on 07/23. - Access via Single Lumen PICC placed at [facility]. - Last + Blood culture was reported on 07/11, with clearing by repeat cultures on 07/12/2018. Plan is for 6 week course of IV Vancomycin, initiated on 07/12, with follow-up with both ortho and ID to be scheduled as outpatient. (2) MRSA bacteremia: Current visit: No Status: Acute - As above. (3) Atrial flutter, paroxysmal: Current visit: No Status: Chronic Recent diagnosis, likely precipitated by dehydration and potential infection. ECHO last checked 05/05, with normal LVEF, and no significant valvulopathy - repeated at [facility] and essentially unchanged per review of reports. Continue BB, Apixaban, with discontinued Carbamazepine previously. Patient also with a history of GIB prior to his colectomy from Crohn's, none since - however, with previous Heme + stool. PPI was optimized last hospitalization. Continue to monitor Hgb. 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 Will ensure continued wound care while hospitalized. (5) Adrenal insufficiency: Current visit: No Status: Chronic Due to long-term steroid use. Was recently switched from prednisone to Hydrocortef as an outpatient, but then switched back prior to his discharge from the hospital in May. Currently on 15mg daily, with plans for slow taper down to home regimen. (6) Chronic cholecystitis: Current visit: No Status: Chronic Drain appears to be functioning well and continues to drain. Exam remains benign. Has been deemed a poor surgical candidate. (7) CKD (chronic kidney disease): Current visit: No Status: Chronic Noted. Monitor renal function carefully. (8) Diabetes mellitus: Current visit: No Status: Chronic Continue lantus, ISS. (9) Anemia: Current visit: No Status: Chronic Microcytic, with Heme + blood on prior exam. Previous work-up showing Iron studies with low TIBC, but inappropriately normal Ferritin - potential for Anemia of Chronic Disease with superimposed blood loss. B12 and FA not deficient, but with low TSH as well. Continue thyroid replacement therapy, Ferrous Sulfate with Vitamin C, and monitor hemoglobin. Will repeat Fecal Occult Blood Testing as well. (10) Hypothyroidism: Current visit: No Status: Chronic Continue replacement therapy. (11) DVT prophylaxis: Current visit: No Status: Acute Currently on anticoagulation with Apixaban. (12) Advance directive on file: Current visit: No Status: Acute Full Code. History of Present Illness Chief Complaint: MRSA Bacteremia Narrative: 58 year old man resident of the [facility], with a prior history of recurrent MRSA Bacteremia, being admitted to [facility] Bed Status as direct admission from [facility] with a diagnosis of right elbow Septic Arthritis with concurrent MRSA Bacteremia. Mr. Corley has been hospitalized here at [facility] with sepsis on numerous prior occasions. He has a history of Group C strep and MRSA bacteremia, as well as E. Fecalis UTI with Urosepsis in the past. He suffered a cardiopulmonary arrest necessitating a transfer to [facility], at which time he was treated for Choleycystitis, and as he was deemed not a surgical candidate was treated conservatively with a pigtail catheter that remains in place. He is chronically a resident at [facility]. His other medical history includes DM, Adrenal insufficiency secondary to chronic steroid use, RA, Crohn's disease s/p Colectomy, OA, CKD with prior JESUS and resultant hyperkalemia, HTN, CAD, hypothyroidism, Obesity, and chronic pain. He's had recurrent UTIs, and also has a history of a non-healing diabetic foot ulcer for which he has undergone debridement in the past with excision of the right toe, without evidence of Osteo. He also suffers from frequent hyperkalemia, and was diagnosed with Atrial Flutter during his last hospitalization. The patient has been treated for MRSA bacteremia on multiple prior occasions, including January of 2018, February, and April of 2018. During his last hospitalization for this in April he was treated for MRSA bacteremia again, with a negative work-up that included TTE, CT of the chest, abdomen, and pelvis, CT of the elbow, and Tagged WBC Scan. KELLEE was not obtained as the patient is a poor candidate for this procedure. He was however noted to have a swollen right elbow during that admission, but had a CT scan that was consistent with 'trauma with subsequent surgery' in the effected limb. He had concluded therapy with Vancomycin. Mr. Corley presented to [facility] of altered mental status and hypotension. He was diagnosed with sepsis, likely on the basis of right elbow infection, and due to a lack of ICU bed availability was transferred to [facility] for further evaluation and treatment. While there the patient was found to have a right elbow Septic Arthritis, initially diagnosed via bedside needle aspiration of the joint that demonstrated growth of MRSA. The patient was taken to the OR on 07/10 per verbal report, at which time he underwent hardware removal. He then underwent washout of the wound on 07/11, prior to having his first negative blood culture on 07/12. The patient was evaluated by both ID and Ortho, with plans for a 6 week total course of antibiotics from the date of the first negative blood cultures, with eventual follow-up with ID and ortho as an outpatient. Given initial hypotension the patient's antihypertensive medications were largely held and are being slowly reinitiated. His kidney function was reported at or better than his baseline. The patient is being admitted to [facility] Status [facility]. 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) Atrial flutter, paroxysmal (Chronic) Palliative care encounter (Chronic) Pulmonary hypertension (Chronic) Chronic cholecystitis (Chronic) MRSA bacteremia (Acute) Hypomagnesemia (Chronic) Ambulatory dysfunction (Chronic) Diabetic foot ulcer (Chronic) Poorly controlled type 2 diabetes mellitus with circulatory disorder (Chronic) Adrenal insufficiency (Chronic) CKD (chronic kidney disease) (Chronic) Cardiopulmonary arrest with successful resuscitation (Resolved) Heme positive stool (Chronic) Sepsis (Resolved) Pedal edema (Chronic) Chronic insomnia (Chronic) Hypertension (Chronic) Chronic pain (Chronic) Hypothyroidism (Chronic) Obesity (Chronic) Back pain (Chronic 06/21/13) Inability to get out of bed (Chronic 06/21/13) Poor self care (Chronic 06/21/13) Chronic bipolar disorder (Chronic) CAD (coronary artery disease) (Chronic) Dyslipidemia (Chronic) Rheumatoid arthritis (Chronic) Osteoarthritis of both knees (Chronic) Cholelithiasis (Chronic) Impaired mobility and ADLs (Chronic) Hemorrhagic cystitis (Chronic) Anemia (Chronic) Chronic anxiety (Chronic) Ulcerative colitis (Chronic) Surgical History History of insertion of T-tube into biliary tract (Chronic) S/P colectomy (Chronic) Arthroplasty of knee (Resolved 03/18/12) Fracture, Open Treatment (Resolved) Social History Smoking/Tobacco Use Status: Former Tobacco Use Alcohol Intake: former Drug use: Rarely Substance use type: marijuana [facility] Do you feel safe at home: Yes Meds Home Medications Medication Instructions Recorded Confirmed Type cyanocobalamin (vitamin B-12) 1,000 mcg PO DAILY 12/23/17 07/18/18 History folic acid 1 mg PO DAILY 12/23/17 07/18/18 History loperamide 2 mg PO QID PRN 12/23/17 07/18/18 History ferrous sulfate 325 mg PO BID #0 tab 12/31/17 07/18/18 Rx acetaminophen [Tylenol] 325 - 650 mg PO Q4H PRN PRN #0 tab 02/10/18 07/18/18 Rx hydralazine 10 mg PO TID #0 tab 02/10/18 07/18/18 Rx hydroxyzine HCl 25 mg PO Q6H PRN PRN #0 tab 02/10/18 07/18/18 Rx magnesium chloride [Mag 64] 64 mg PO BID #0 tab 02/10/18 07/18/18 Rx terazosin 4 mg PO BID #0 cap 02/10/18 07/18/18 Rx Centrum Complete 1 tab PO DAILY 03/01/18 07/18/18 History Lantus Solostar U-100 Insulin 60 unit SUBCUT DAILY 03/01/18 07/09/18 History ascorbic acid (vitamin C) [Vitamin 1 tab PO BID 03/01/18 07/18/18 History C] venlafaxine 75 mg PO DAILY 03/03/18 07/18/18 History acidophilus-pectin, citrus 1 cap PO TID #0 tab 03/24/18 07/18/18 Rx trazodone 50 mg PO HS #30 tab 05/06/18 07/18/18 Rx amlodipine 10 mg PO DAILY #30 tab 06/19/18 07/18/18 Rx apixaban [Eliquis] 5 mg PO BID #60 tab 06/19/18 07/18/18 Rx cadexomer iodine [Iodosorb] 0 g TOPICAL DAILY #60 g 06/19/18 07/09/18 Rx clonidine HCl [Catapres] 0.2 mg PO TID #90 tab 06/19/18 07/18/18 Rx collagenase clostridium histo. 0 g TOPICAL DAILY #60 g 06/19/18 07/09/18 Rx [Santyl] dimethicone-zinc oxide [Loan 0 g TOPICAL TID #60 g 06/19/18 07/18/18 Rx Protect] dimethicone-zinc oxide [Loan 1 applic TOPICAL PRN PRN #60 g 06/19/18 07/09/18 Rx Protect] fluticasone propionate 0 g NS DAILY #1 g 06/19/18 07/18/18 Rx furosemide 40 mg PO BID@0830,1600 #60 tab 06/19/18 07/18/18 Rx gabapentin 100 mg PO TID #90 cap 06/19/18 07/18/18 Rx insulin aspart U-100 [Novolog See Rx Instructions .ROUTE 06/19/18 07/18/18 Rx Flexpen U-100 Insulin] .COMPLEX #15 ml ipratropium-albuterol 3 ml UPD Q6H PRN PRN #1 startr pk 06/19/18 07/18/18 Rx levalbuterol HCl 0.63 mg UPD Q2H PRN PRN #1 inh 06/19/18 07/18/18 Rx levothyroxine 25 mcg PO DAILY@0600 #30 tab 06/19/18 07/18/18 Rx melatonin 6 mg PO HS #30 tab 06/19/18 07/18/18 Rx pantoprazole 40 mg PO BID@0730,2000 #60 tab 06/19/18 07/18/18 Rx prednisone See Rx Instructions .ROUTE 06/19/18 07/18/18 Rx .COMPLEX #60 tab sodium bicarbonate 650 mg PO TID #90 tab 06/19/18 07/18/18 Rx trimethobenzamide 300 mg PO TID PRN PRN #30 cap 06/19/18 07/18/18 Rx risperidone [Risperdal] 3 mg PO HS 06/23/18 07/18/18 History calcium carbonate-vitamin D3 1 tab PO BID 07/09/18 07/09/18 History [Calcium 500 + D] insulin glargine [Lantus Solostar 60 unit SUBCUT HS 07/09/18 07/18/18 History U-100 Insulin] oxycodone 5 mg PO Q8H 07/09/18 07/18/18 History Allergies Allergy/AdvReac Type Severity Reaction Status Date / Time No Known Allergies Allergy Verified 07/09/18 09:05 Exam Narrative Exam Narrative: General: Patient appears comfortable, AAOX3, NAD Neck: Supple CV: Regular, nontachycardic, S1S2, No rubs, murmurs, or gallops. Pulmonary: Clear to auscultation bilaterally, no crackles, wheezing, or rhonchi Abdomen: + Bowel Sounds, soft, nontender, nondistended Vascular: No lower extremity edema Neurologic: CN II-XII grossly intact. No focal deficits. Psych: Normal mood and affect.
--- NOTE | 2018-07-18 14:49 | HPE_ITS ---
Date of service: 07/18/18 Time of Service: 16:30 Assessment and Plan (1) Septic arthritis of elbow, right: Current visit: No Status: Acute With Hardware in place, would likely explain patient's bouts of recurrent bacteremia. Previous work-up included CT of the elbow in May. - Patient is s/p Hardware removal on 07/10, with washout on 07/11. - [place] to be removed on 07/23. - Access via Single Lumen PICC placed at [facility]. - Last + Blood culture was reported on 07/11, with clearing by repeat cultures on 07/12/2018. Plan is for 6 week course of IV Vancomycin, initiated on 07/12, with follow-up with both ortho and ID to be scheduled as outpatient. (2) MRSA bacteremia: Current visit: No Status: Acute - As above. (3) Atrial flutter, paroxysmal: Current visit: No Status: Chronic Recent diagnosis, likely precipitated by dehydration and potential infection. ECHO last checked 05/05, with normal LVEF, and no significant valvulopathy - repeated at [facility] and essentially unchanged per review of reports. Continue BB, Apixaban, with discontinued Carbamazepine previously. Patient also with a history of GIB prior to his colectomy from Crohn's, none since - however, with previous Heme + stool. PPI was optimized last hospitalization. Continue to monitor Hgb. 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 Will ensure continued wound care while hospitalized. (5) Adrenal insufficiency: Current visit: No Status: Chronic Due to long-term steroid use. Was recently switched from prednisone to Hydrocortef as an outpatient, but then switched back prior to his discharge from the hospital in May. Currently on 15mg daily, with plans for slow taper down to home regimen. (6) Chronic cholecystitis: Current visit: No Status: Chronic Drain appears to be functioning well and continues to drain. Exam remains benign. Has been deemed a poor surgical candidate. (7) CKD (chronic kidney disease): Current visit: No Status: Chronic Noted. Monitor renal function carefully. (8) Diabetes mellitus: Current visit: No Status: Chronic Continue lantus, ISS. (9) Anemia: Current visit: No Status: Chronic Microcytic, with Heme + blood on prior exam. Previous work-up showing Iron studies with low TIBC, but inappropriately normal Ferritin - potential for Anemia of Chronic Disease with superimposed blood loss. B12 and FA not deficient, but with low TSH as well. Continue thyroid replacement therapy, Ferrous Sulfate with Vitamin C, and monitor hemoglobin. Will repeat Fecal Occult Blood Testing as well. (10) Hypothyroidism: Current visit: No Status: Chronic Continue replacement therapy. (11) DVT prophylaxis: Current visit: No Status: Acute Currently on anticoagulation with Apixaban. (12) Advance directive on file: Current visit: No Status: Acute Full Code. History of Present Illness Chief Complaint: MRSA Bacteremia Narrative: 58 year old man resident of the [facility], with a prior history of recurrent MRSA Bacteremia, being admitted to [facility] Bed Status as direct admission from [facility] with a diagnosis of right elbow Septic Arthritis with concurrent MRSA Bacteremia. Mr. Corley has been hospitalized here at [facility] with sepsis on numerous prior occasions. He has a history of Group C strep and MRSA bacteremia, as well as E. Fecalis UTI with Urosepsis in the past. He suffered a cardiopulmonary arrest necessitating a transfer to [facility], at which time he was treated for Choleycystitis, and as he was deemed not a surgical candidate was treated conservatively with a pigtail catheter that remains in place. He is chronically a resident at [facility]. His other medical history includes DM, Adrenal insufficiency secondary to chronic steroid use, RA, Crohn's disease s/p Colectomy, OA, CKD with prior JESUS and resultant hyperkalemia, HTN, CAD, hypothyroidism, Obesity, and chronic pain. He's had recurrent UTIs, and also has a history of a non-healing diabetic foot ulcer for which he has undergone debridement in the past with excision of the right toe, without evidence of Osteo. He also suffers from frequent hyperkalemia, and was diagnosed with Atrial Flutter during his last hospitalization. The patient has been treated for MRSA bacteremia on multiple prior occasions, including January of 2018, February, and April of 2018. During his last hospitalization for this in April he was treated for MRSA bacteremia again, with a negative work-up that included TTE, CT of the chest, abdomen, and pelvis, CT of the elbow, and Tagged WBC Scan. KELLEE was not obtained as the patient is a poor candidate for this procedure. He was however noted to have a swollen right elbow during that admission, but had a CT scan that was consistent with 'trauma with subsequent surgery' in the effected limb. He had concluded therapy with Vancomycin. Mr. Corley presented to [facility] ED from [facility] for evaluation of altered mental status and hypotension. He was diagnosed with sepsis, likely on the basis of right elbow infection, and due to a lack of ICU bed availability was transferred to [facility] for further evaluation and treatment. While there the patient was found to have a right elbow Septic Arthritis, initially diagnosed via bedside needle aspiration of the joint that demonstrated growth of MRSA. The patient was taken to the OR on 07/10 per verbal report, at which time he underwent hardware removal. He then underwent washout of the wound on 07/11, prior to having his first negative blood culture on 07/12. The patient was evaluated by both ID and Ortho, with plans for a 6 week total course of antibiotics from the date of the first negative blood cultures, with eventual follow-up with ID and ortho as an outpatient. Given initial hypotension the patient's antihypertensive medications were largely held and are being slowly reinitiated. His kidney function was reported at or better than his baseline. The patient is being admitted to [facility] Status while awaiting return to the [facility] in 3 days' time. 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) Atrial flutter, paroxysmal (Chronic) Palliative care encounter (Chronic) Pulmonary hypertension (Chronic) Chronic cholecystitis (Chronic) MRSA bacteremia (Acute) Hypomagnesemia (Chronic) Ambulatory dysfunction (Chronic) Diabetic foot ulcer (Chronic) Poorly controlled type 2 diabetes mellitus with circulatory disorder (Chronic) Adrenal insufficiency (Chronic) CKD (chronic kidney disease) (Chronic) Cardiopulmonary arrest with successful resuscitation (Resolved) Heme positive stool (Chronic) Sepsis (Resolved) Pedal edema (Chronic) Chronic insomnia (Chronic) Hypertension (Chronic) Chronic pain (Chronic) Hypothyroidism (Chronic) Obesity (Chronic) Back pain (Chronic 06/21/13) Inability to get out of bed (Chronic 06/21/13) Poor self care (Chronic 06/21/13) Chronic bipolar disorder (Chronic) CAD (coronary artery disease) (Chronic) Dyslipidemia (Chronic) Rheumatoid arthritis (Chronic) Osteoarthritis of both knees (Chronic) Cholelithiasis (Chronic) Impaired mobility and ADLs (Chronic) Hemorrhagic cystitis (Chronic) Anemia (Chronic) Chronic anxiety (Chronic) Ulcerative colitis (Chronic) Surgical History History of insertion of T-tube into biliary tract (Chronic) S/P colectomy (Chronic) Arthroplasty of knee (Resolved 03/18/12) Fracture, Open Treatment (Resolved) Social History Smoking/Tobacco Use Status: Former Tobacco Use Alcohol Intake: former Drug use: Rarely Substance use type: marijuana Housing: [facility] Do you feel safe at home: Yes Meds Home Medications Medication Instructions Recorded Confirmed Type cyanocobalamin (vitamin B-12) 1,000 mcg PO DAILY 12/23/17 07/18/18 History folic acid 1 mg PO DAILY 12/23/17 07/18/18 History loperamide 2 mg PO QID PRN 12/23/17 07/18/18 History ferrous sulfate 325 mg PO BID #0 tab 12/31/17 07/18/18 Rx acetaminophen [Tylenol] 325 - 650 mg PO Q4H PRN PRN #0 tab 02/10/18 07/18/18 Rx hydralazine 10 mg PO TID #0 tab 02/10/18 07/18/18 Rx hydroxyzine HCl 25 mg PO Q6H PRN PRN #0 tab 02/10/18 07/18/18 Rx magnesium chloride [Mag 64] 64 mg PO BID #0 tab 02/10/18 07/18/18 Rx terazosin 4 mg PO BID #0 cap 02/10/18 07/18/18 Rx Centrum Complete 1 tab PO DAILY 03/01/18 07/18/18 History Lantus Solostar U-100 Insulin 60 unit SUBCUT DAILY 03/01/18 07/09/18 History ascorbic acid (vitamin C) [Vitamin 1 tab PO BID 03/01/18 07/18/18 History C] venlafaxine 75 mg PO DAILY 03/03/18 07/18/18 History acidophilus-pectin, citrus 1 cap PO TID #0 tab 03/24/18 07/18/18 Rx trazodone 50 mg PO HS #30 tab 05/06/18 07/18/18 Rx amlodipine 10 mg PO DAILY #30 tab 06/19/18 07/18/18 Rx apixaban [Eliquis] 5 mg PO BID #60 tab 06/19/18 07/18/18 Rx cadexomer iodine [Iodosorb] 0 g TOPICAL DAILY #60 g 06/19/18 07/09/18 Rx clonidine HCl [Catapres] 0.2 mg PO TID #90 tab 06/19/18 07/18/18 Rx collagenase clostridium histo. 0 g TOPICAL DAILY #60 g 06/19/18 07/09/18 Rx [Santyl] dimethicone-zinc oxide [Loan 0 g TOPICAL TID #60 g 06/19/18 07/18/18 Rx Protect] dimethicone-zinc oxide [Loan 1 applic TOPICAL PRN PRN #60 g 06/19/18 07/09/18 Rx Protect] fluticasone propionate 0 g NS DAILY #1 g 06/19/18 07/18/18 Rx furosemide 40 mg PO BID@0830,1600 #60 tab 06/19/18 07/18/18 Rx gabapentin 100 mg PO TID #90 cap 06/19/18 07/18/18 Rx insulin aspart U-100 [Novolog See Rx Instructions .ROUTE 06/19/18 07/18/18 Rx Flexpen U-100 Insulin] .COMPLEX #15 ml ipratropium-albuterol 3 ml UPD Q6H PRN PRN #1 startr pk 06/19/18 07/18/18 Rx levalbuterol HCl 0.63 mg UPD Q2H PRN PRN #1 inh 06/19/18 07/18/18 Rx levothyroxine 25 mcg PO DAILY@0600 #30 tab 06/19/18 07/18/18 Rx melatonin 6 mg PO HS #30 tab 06/19/18 07/18/18 Rx pantoprazole 40 mg PO BID@0730,2000 #60 tab 06/19/18 07/18/18 Rx prednisone See Rx Instructions .ROUTE 06/19/18 07/18/18 Rx .COMPLEX #60 tab sodium bicarbonate 650 mg PO TID #90 tab 06/19/18 07/18/18 Rx trimethobenzamide 300 mg PO TID PRN PRN #30 cap 06/19/18 07/18/18 Rx risperidone [Risperdal] 3 mg PO HS 06/23/18 07/18/18 History calcium carbonate-vitamin D3 1 tab PO BID 07/09/18 07/09/18 History [Calcium 500 + D] insulin glargine [Lantus Solostar 60 unit SUBCUT HS 07/09/18 07/18/18 History U-100 Insulin] oxycodone 5 mg PO Q8H 07/09/18 07/18/18 History Allergies Allergy/AdvReac Type Severity Reaction Status Date / Time No Known Allergies Allergy Verified 07/09/18 09:05 Exam Narrative Exam Narrative: General: Patient appears comfortable, AAOX3, NAD Neck: Supple CV: Regular, nontachycardic, S1S2, No rubs, murmurs, or gallops. Pulmonary: Clear to auscultation bilaterally, no crackles, wheezing, or rhonchi Abdomen: + Bowel Sounds, soft, nontender, nondistended Vascular: No lower extremity edema Neurologic: CN II-XII grossly intact. No focal deficits. Psych: Normal mood and affect.
[2018-07-18 16:24] VITALS: BP 145/63; PULSE 83; RESP 18; TEMP 36.6; O2SAT 99
[2018-07-18] MEDS: Insulin Aspart 300 UNITS/3 ML PEN SC (18:03)
[2018-07-18] MEDS: Apixaban 5 MG TAB PO (20:10)
[2018-07-18] MEDS: oxyCODONE 5 MG TAB PO (20:11)
[2018-07-18] MEDS: Ferrous Sulfate 325 MG TAB PO (20:11)
[2018-07-18] MEDS: cloNIDine 0.1 MG TAB 0.2 MG PO (20:11)
[2018-07-18] MEDS: Ascorbic Acid 500 MG TAB PO (20:11)
[2018-07-18] MEDS: Gabapentin 100 MG CAP PO (20:11)
[2018-07-18] MEDS: Pantoprazole 40 MG TABCR PO (20:12)
[2018-07-18] MEDS: Lactobacillus Acidophilus CAP 1 CAP PO (20:12)
[2018-07-18] MEDS: Sodium Bicarbonate 650 MG TAB PO (20:12)
[2018-07-18] MEDS: Magnesium Chloride 64 MG TABCR PO (20:12)
[2018-07-18] MEDS: Insulin Glargine 300 UNITS/3 ML PEN 60 UNITS SC (22:32)
[2018-07-19] MEDS: traZODone 50 MG TAB PO ×2 (00:33→22:16)
[2018-07-19] MEDS: risperiDONE 1 MG TAB 3 MG PO ×2 (00:33→22:15)
[2018-07-19] MEDS: Melatonin 3 MG TAB 6 MG PO ×2 (00:33→22:15)
[2018-07-19] MEDS: oxyCODONE 5 MG TAB PO ×3 (03:53→20:18)
[2018-07-19 04:03] VITALS: BP 143/76; PULSE 65; RESP 17; TEMP 36.5; O2SAT 97
[2018-07-19] MEDS: Levothyroxine 25 MCG TAB PO (06:43)
[2018-07-19 07:25] VITALS: BP 123/80; PULSE 49; RESP 16; TEMP 36; O2SAT 99
[2018-07-19 07:26] LABS: Abs Immature Grans 0.37 k/cumm (0.0-0.09); HCT 32.4 % (40.0-50.0); HGB 10.1 g/dL (13.5-17.5); Mean Corp. HGB Concentration 31.2 g/dL (32.0-36.0); Mean Corpuscular Hemoglobin 24.3 pg (27.0-33.0); Mean Corpuscular Volume 77.9 fL (80-95); Mean Platelet Volume 10.1 fL (8.0-11.0); Platelet Count 402 x1000/uL (130-400); RBC 4.16 m/cumm (4.50-6.00); RBC Distribution Width 18.3 % (11.8-14.1)
[2018-07-19 07:33] LABS: Anion Gap 11.4 mmol/L (3-11); BUN 68 mg/dL (7-18); CO2 15.6 mmol/L (21.0-32.0); CREATININE 1.63 mg/dL (0.70-1.30); Chloride 108 mmol/L (98-107); Estimated GFR 43.52 (mL/min/1.73m2); Glucose 133 mg/dL (70-100); Magnesium 2.1 mg/dL (1.8-2.4); Sodium 135 mmol/L (136-145)
[2018-07-19 08:17] LABS: Absolute Lymphocyte Count 1.62 k/cumm (1.2-3.4); Absolute Monocyte Count 0.57 k/cumm (0.11-0.7); Absolute Neutrophil Count 6.94 k/cumm (1.2-6.7); Atypical Lymphocytes % 1
[2018-07-19 08:18] VITALS: BP 133/88; PULSE 59
[2018-07-19 08:18] LABS: Anisocytosis 2+; Diff Comment Manual Differential; Hypochromasia 1+; Polychromasia Present
[2018-07-19] MEDS: Fluticasone NASAL SPRAY 16 GM BTL NS (08:19)
[2018-07-19] MEDS: HYDROmorphone 2 MG/ML VIAL 1 MG IVP (08:19)
[2018-07-19 08:20] LABS: Poikilocytes 2+
[2018-07-19] MEDS: Lactobacillus Acidophilus CAP 1 CAP PO ×3 (08:20→20:16)
[2018-07-19] MEDS: predniSONE 10 MG TAB 15 MG PO (08:20)
[2018-07-19] MEDS: Cyanocobalamin 500 MCG TAB 1000 MCG PO (08:20)
[2018-07-19] MEDS: cloNIDine 0.1 MG TAB 0.2 MG PO ×3 (08:20→20:17)
[2018-07-19] MEDS: Magnesium Chloride 64 MG TABCR PO ×2 (08:20→20:17)
[2018-07-19] MEDS: Venlafaxine 37.5 MG CAPCR 75 MG PO (08:20)
[2018-07-19] MEDS: Multivitamin w/Minerals TAB 1 TAB PO (08:20)
[2018-07-19] MEDS: Pantoprazole 40 MG TABCR PO ×2 (08:21→20:17)
[2018-07-19] MEDS: Ferrous Sulfate 325 MG TAB PO ×2 (08:21→20:17)
[2018-07-19] MEDS: Gabapentin 100 MG CAP PO ×3 (08:21→20:17)
[2018-07-19] MEDS: Folic Acid 1 MG TAB PO (08:21)
[2018-07-19] MEDS: Ascorbic Acid 500 MG TAB PO ×2 (08:21→20:17)
[2018-07-19] MEDS: Apixaban 5 MG TAB PO ×2 (08:21→20:18)
[2018-07-19] MEDS: Sodium Bicarbonate 650 MG TAB PO ×3 (08:21→20:16)
[2018-07-19] MEDS: Normal Saline Flush 10 ML SYR (09:00)
[2018-07-19 09:37] LABS: Vancomycin, Trough 26.9 ug/mL (10.0-20.0)
--- NOTE | 2018-07-19 10:12 | PT.INIE ---
Date of service: 07/19/18 Time of Service: 09:30 PT Notes Inpatient Physical Therapy Evaluation Date: July 19, 2018 Referring Doctor: Ariel Bravo MD PT Orders: PT CONSULT: Eval/treat Precautions: Fall. [place]. Patient Profile/Admitting Diagnosis: 58 year old man resident of the [facility], with a prior history of recurrent MRSA Bacteremia, being admitted to Swing Bed Status as direct admission from [facility] with a diagnosis of right elbow Septic Arthritis with concurrent MRSA Bacteremia. PMHX: 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 (Acute),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),Pulmonary hypertension (Chronic) Toxic metabolic encephalopathy (Resolved),Chronic cholecystitis (Chronic), 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 2 diabetes mellitus (Ruled-out), MRSA bacteremia (Acute) Ambulatory dysfunction (Chronic), Diabetic foot ulcer (Chronic), Poorly controlled type 2 diabetes mellitus with circulatory disorder (Chronic) Adrenal insufficiency (Chronic), CKD (chronic kidney disease) (Chronic),Heme positive stool (Chronic), History of sepsis, Pedal edema (Chronic) Chronic insomnia (Chronic),Hypertension (Chronic), Chronic pain (Chronic), Hypothyroidism (Chronic), Obesity (Chronic), Back pain (Chronic 06/21/13) Poor self care (Chronic 06/21/13), Chronic bipolar disorder (Chronic),CAD (coronary artery disease) (Chronic), Dyslipidemia (Chronic), Rheumatoid arthritis (Chronic) Osteoarthritis of both knees (Chronic), Cholelithiasis (Chronic), Impaired mobility and ADLs (Chronic), Hemorrhagic cystitis (Inactive), Anemia (Chronic),Chronic anxiety (Chronic) Ulcerative colitis (Chronic) PSH: History of insertion of T-tube into biliary tract (Chronic) S/P colectomy (Chronic) Arthroplasty of knee (Resolved 03/18/12) Fracture, Open Treatment (Resolved) Social History/Home Situation: Patient is a resident of the [facility]. Patient states that prior to his admission ~2-3 weeks ago physical therapy at the [facility] worked with him and has had him walking about 50 feet on level surfaces with front-wheeled walker. He reports since his admission he has not been walking. He reports that he is unable to walk without his shoes, which are at the [facility]. Current Functional Limitations: Patient requires assistance with all mobility ADL performance Equipment Owned/DME: Wheelchair, front-wheeled walker Subjective: Patient reports that he has been up sitting bedside with manageable symptoms. Does complain of increased pain into bilateral elbows. Reporting 6-7/10 on VAS. Objective: General Observation: Patient was lying in bed alert and agreeable to PT consult this am. Mental Status: Alert and oriented x 3 Pain: Patient Reports 6-7/10 on VAS ROM: Right Upper Extremity: Shoulder flexion unable to actively lift. Passively able to obtain 90 degrees. Elbow motion is not assessed. Poor functional opening of the hand. Left Upper Extremity: Shoulder flexion 60 degrees. Elbow motion is within functional limits. Poor functional opening of the hand. Right Lower Extremity: Patient has approximately 10 degree knee flexion contracture. Demonstrates ankle dorsiflexion to 5 degrees beyond neutral. Left Lower Extremity: Patient has approximately 15 degree knee flexion contracture. Demonstrates ankle dorsiflexion to 5 degrees beyond neutral. STRENGTH: Right Upper Extremity: Shoulder flexion 2-/5. Mexican Food Maker is weak. Left Upper Extremity: Shoulder flexion 3-/5. Biceps 3-/5. Triceps 3+/5. Mexican Food Maker is weak. Right Lower Extremity: Hip flexion 4/5. Quads 4-/5. Hamstrings 3+/5. Ankle dorsiflexors 2-/5. Left Lower Extremity: Hip flexion 4/5. Quads 3+/5. Hamstrings 3+/5. Ankle dorsiflexiors 2-/5. Bed Mobility/Transfers: Brendan was able to I sit from supine position to side of bed. He was also I with sit to supine with HOB 30 degrees NT. Patient refused any out of bed activities today due to not having his corrective shoes. Patient reports that Dr. Motta does not want him standing or walking without them. Balance: Static Sitting Normal, Dynamic Sitting Normal, Standing balance NT. Patient refused any out of bed activities as stated above. Special Tests: Mobility Limitations Standardized Measure [facility] AM-PAC 6 clicks Basic Mobility Inpatient Short Form: Raw Score: 12 CMS Score: 68% deficit Treatment: Brendan completed a light LE strengthening program per flow sheet without difficulty. Informed Consent/Education: Patient instructed in purpose of PT consult and plan of care. Assessment: Patient is a 58 year old man resident of the [facility], with a prior history of recurrent MRSA Bacteremia, being admitted to Swing Bed Status as direct admission from [facility] with a diagnosis of right elbow Septic Arthritis with concurrent MRSA Bacteremia. Patient presents with clinical signs and symptoms consistent with reduced mobility related to acute medical issues. Patient does have chronic mobility deficits, and resides in a long-term care facility, where he requires assistance with all ambulation and self-care. PT goals will be targeted at maximizing patient's mobility and strength to allow for safe transition back to long-term care facility. He currently demonstrates the following impairment level findings: 1. Decreased lower extremity strength 2. Decreased upper extremity strength 3. Decreased activity tolerance 4. Decreased range of motion bilateral knees and hands 5. Decreased balance skills Impairments are contributing to the following functional limitations: 1. Unable to perform ambulation 2. Patient requiring assistance with bed mobility 3. Decreased activity tolerance 4. Decreased safety with transfers 5. Dependence with transfer task performance Patient is assessed as Moderate 99904 complexity based on the following: History: Reduced mobility due to weakness, 57-year-old male with complicated medical history and gradual decline in independence and mobility. Patient has been residing in a long-term care facility for the past 5 years, and demonstrates limited mobility in that setting. He also struggles with multiple areas of joint pain related to RA as well as with history of significant cardiac and GI issues as noted above under past medical history. Examination: Functional limitations and underlying impairments resulting to an AMP?PAC score 12 and an equivalent CMS score of 68% Presentation: Evolving Decision Making: Moderate complexity Goals: Goals X1 week 1. Supine-Sit independent 2. Sit-Supine independent 3. Sit-Stand SBA 4. Stand-Sit S 5. Bed-Chair CGA with FWW 6. Chair-Bed CGA with FWW 7. SBA gait on level surface with use of least restrictive device for at least 50 feet without report of pain 8. Good static and dynamic standing balance/tolerance Plan of Care/Treatment Plan: 1-2x/day, 7 days/week x 1 week. Plan of care has been reviewed with the CASE FOLDER providing the service under Physical Therapy direction. Initiate Physical Therapy intervention for strengthening of bilateral LE and left UE with PROM to the R shoulder, bed mobility, transfers, gait, balance training, use of assistive device. DISCHARGE RECOMMENDATIONS: Return to the [facility] when medically stable. Will highly benefit from continued skilled PT services at the SNF to establish a functional program and reduce fall risk. TREATMENT CODE/TIME: 44384 25 minutes beginning at 9:30 AM. Thank you for this referral. Racquel Bermudez, MPT
--- NOTE | 2018-07-19 10:15 | IN_ITS ---
Date of service: 07/19/18 Time of Service: 09:30 PT Notes Inpatient Physical Therapy Evaluation Date: July 19, 2018 Referring Doctor: Ariel Bravo MD PT Orders: PT CONSULT: Eval/treat Precautions: Fall. [place]. Patient Profile/Admitting Diagnosis: 58 year old man resident of the [facility], with a prior history of recurrent MRSA Bacteremia, being admitted to Swing Bed Status as direct admission from [facility] with a diagnosis of right elbow Septic Arthritis with concurrent MRSA Bacteremia. PMHX: 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 (Acute),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),Pulmonary hypertension (Chronic) Toxic metabolic encephalopathy (Resolved),Chronic cholecystitis (Chronic), 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 2 diabetes mellitus (Ruled-out), MRSA bacteremia (Acute) Ambulatory dysfunction (Chronic), Diabetic foot ulcer (Chronic), Poorly controlled type 2 diabetes mellitus with circulatory disorder (Chronic) Adrenal insufficiency (Chronic), CKD (chronic kidney disease) (Chronic),Heme positive stool (Chronic), History of sepsis, Pedal edema (Chronic) Chronic insomnia (Chronic),Hypertension (Chronic), Chronic pain (Chronic), Hypothyroidism (Chronic), Obesity (Chronic), Back pain (Chronic 06/21/13) Poor self care (Chronic 06/21/13), Chronic bipolar disorder (Chronic),CAD (coronary artery disease) (Chronic), Dyslipidemia (Chronic), Rheumatoid arthritis (Chronic) Osteoarthritis of both knees (Chronic), Cholelithiasis (Chronic), Impaired mobility and ADLs (Chronic), Hemorrhagic cystitis (Inactive), Anemia (Chronic),Chronic anxiety (Chronic) Ulcerative colitis (Chronic) PSH: History of insertion of T-tube into biliary tract (Chronic) S/P colectomy (Chronic) Arthroplasty of knee (Resolved 03/18/12) Fracture, Open Treatment (Resolved) Social History/Home Situation: Patient is a resident of the [facility]. Patient sta tayler that prior to his admission ~2-3 weeks ago physical therapy at the [facility] worked with him and has had him walking about 50 feet on level surfaces with front-wheeled walker. He reports since his admission he has not been walking. He reports that he is unable to walk without his shoes, which are at the [facility]. Current Functional Limitations: Patient requires assistance with all mobility ADL performance Equipment Owned/DME: Wheelchair, front-wheeled walker Subjective: Patient reports that he has been up sitting bedside with manageable symptoms. Does complain of increased pain into bilateral elbows. Reporting 6- 7/10 on VAS. Objective: General Observation: Patient was lying in bed alert and agreeable to PT consult this am. Mental Status: Alert and oriented x 3 Pain: Patient Reports 6-7/10 on VAS ROM: Right Upper Extremity: Shoulder flexion unable to actively lift. Passively able to obtain 90 degrees. Elbow motion is not assessed. Poor functional opening of the hand. Left Upper Extremity: Shoulder flexion 60 degrees. Elbow motion is within functional limits. Poor functional opening of the hand. Right Lower Extremity: Patient has approximately 10 degree knee flexion contract ure. Demonstrates ankle dorsiflexion to 5 degrees beyond neutral. Left Lower Extremity: Patient has approximately 15 degree knee flexion contracture. Demonstrates ankle dorsiflexion to 5 degrees beyond neutral. STRENGTH: Right Upper Extremity: Shoulder flexion 2-/5. Director Of Search Engine Marketing is weak. Left Upper Extremity: Shoulder flexion 3-/5. Biceps 3-/5. Triceps 3+/5. Director Of Search Engine Marketing is weak. Right Lower Extremity: Hip flexion 4/5. Quads 4-/5. Hamstrings 3+/5. Ankle dorsiflexors 2-/5. Left Lower Extremity: Hip flexion 4/5. Quads 3+/5. Hamstrings 3+/5. Ankle dorsiflexiors 2-/5. Bed Mobility/Transfers: Brendan was able to I sit from supine position to side of bed. He was also I with sit to supine with HOB 30 degrees NT. Patient refused any out of bed activities today due to not having his corrective shoes. Patient reports that Dr. Motta does not want him standing or walking without them. Balance: Static Sitting Normal, Dynamic Sitting Normal, Standing balance NT. Patient refused any out of bed activities as stated above. Special Tests: Mobility Limitations Standardized Measure [facility] AM-PAC 6 clicks Basic Mobility Inpatient Short Form: Raw Score: 12 CMS Score: 68% deficit Treatment: Brendan completed a light LE strengthening program per flow sheet without difficulty. Informed Consent/Education: Patient instructed in purpose of PT consult and plan of care. Assessment: Patient is a 58 year old man resident of the [facility], with a prior history of recurrent MRSA Bacteremia, being admitted to Swing Bed Status as direct admission from [facility] with a diagnosis of right elbow Septic Arthritis with concurrent MRSA Bacteremia. Patient presents with clinical signs and symptoms consistent with reduced mobility related to acute medical issues. Patient does have chronic mobility deficits, and resides in a long-term care facility, where he requires assistance with all ambulation and self-care. PT goals will be targeted at maximizing patient's mobility and strength to allow for safe transition back to long-term care facility. He currently demonstrates the following impairment level findings: 1. Decreased lower extremity strength 2. Decreased upper extremity strength 3. Decreased activity tolerance 4. Decreased range of motion bilateral knees and hands 5. Decreased balance skills Impairments are contributing to the following functional limitations: 1. Unable to perform ambulation 2. Patient requiring assistance with bed mobility 3. Decreased activity tolerance 4. Decreased safety with transfers 5. Dependence with transfer task performance Patient is assessed as Moderate 26562 complexity based on the following: History: Reduced mobility due to weakness, 57-year-old male with complicated medical history and gradual decline in independence and mobility. Patient has been residing in a long-term care facility for the past 5 years, and demonstrates limited mobility in that setting. He also struggles with multiple areas of joint pain related to RA as well as with history of significant cardiac and GI issues as noted above under past medical history. Examination: Functional limitations and underlying impairments resulting to an AMP?PAC score 12 and an equivalent CMS score of 68% Presentation: Evolving Decision Making: Moderate complexity Goals: Goals X1 week 1. Supine-Sit independent 2. Sit-Supine independent 3. Sit-Stand SBA 4. Stand-Sit S 5. Bed-Chair CGA with FWW 6. Chair-Bed CGA with FWW 7. SBA gait on level surface with use of least restrictive device for at least 50 feet without report of pain 8. Good static and dynamic standing balance/tolerance Plan of Care/Treatment Plan: 1-2x/day, 7 days/week x 1 week. Plan of care has been reviewed with the INTERNET DEVELOPER providing the service under Physical Therapy direction. Initiate Physical Therapy intervention for strengthening of bilateral LE and left UE with PROM to the R shoulder, bed mobility, transfers, gait, balance training, use of assistive device. DISCHARGE RECOMMENDATIONS: Return to the [facility] when medically stable. Will highly benefit from continued skilled PT services at the SNF to establish a functional program and reduce fall risk. TREATMENT CODE/TIME: 26997 25 minutes beginning at 9:30 AM. Thank you for this referral. Racquel Bermudez, MPT
[2018-07-19] MEDS: Insulin Aspart 300 UNITS/3 ML PEN SC ×2 (11:52→16:54)
--- NOTE | 2018-07-19 12:10 | PHARADMIT ---
Addendum entered by Rosa Beltran 07/20/18 13:08: HR-43 other VS okay no labs [id number] six weeks of vanco starting 07/12 (1st negative BC per progress note) per H+P puts end date at 08/23 PO furosemide ordered daily; carb d repeat labs tomorrow, discharge [facility] when ready Original Note: Admission Pharmacy Clinical Review SEPTIC ARTHRITIS, MRSA BACTEREMIA Code Status Full Code Current Weight Wgt-90.5 kg Renally Cleared and Narrow Therapeutic Index Meds CrCl~55 mL/min Meds-OK QTc Value / Action Taken QTc-404 (07/08/18) na BP Control, Fever BP-133/88 Tmax- 36.6C Electrolytes reviewed Na- 135 K+5.0 Mag-2.1 DVT Prophylaxis Apixaban Opiate Usage / Scheduled Bowel Regimen Ordered Yes Yes Plt/SCr for Heparin / Enoxaparin Plts-402 SCr-1.63 INR for Warfarin NA H/H stable, WBC/Bands H&H- 10.1/32.4 WBC- 9.50 Antibiotic appropriateness Vancomycin Cultures and Sensitivities stooloccult blood-neg Surgical ABX d/c within 24 hr na DM control / Insulin Dosing BG- 133 Aspart, Glargine Heart Failure (Check EF%) (ARYA's, B-Block, Diuretics) Clonidine, Hytrin IV to PO Switch No Home Meds Reviewed Yes Home Meds Not Ordered Humira, Lasix Comments Probably going to [facility] on Friday. Trough ordered 26.9 based RxKinetic on [facility] MAR dose given 12:17 on 07/18/2018
[2018-07-19 15:11] VITALS: BP 137/70; PULSE 51; RESP 18; TEMP 36.7; O2SAT 97
[2018-07-19 17:42] LABS: Microcytosis 1+
[2018-07-19] MEDS: Insulin Glargine 300 UNITS/3 ML PEN 60 UNITS SC (22:15)
[2018-07-20 03:15] VITALS: BP 153/89; PULSE 80; RESP 19; TEMP 36.7; O2SAT 98
[2018-07-20] MEDS: oxyCODONE 5 MG TAB PO ×3 (03:20→20:56)
[2018-07-20] MEDS: Levothyroxine 25 MCG TAB PO (05:54)
[2018-07-20 07:30] VITALS: O2SAT 96
[2018-07-20 07:45] VITALS: BP 128/74; PULSE 43; RESP 16; TEMP 36.3; O2SAT 100
[2018-07-20] MEDS: predniSONE 10 MG TAB 15 MG PO (09:41)
[2018-07-20] MEDS: Ascorbic Acid 500 MG TAB PO ×2 (09:43→20:56)
[2018-07-20] MEDS: Furosemide 40 MG TAB PO (09:43)
[2018-07-20] MEDS: Gabapentin 100 MG CAP PO ×2 (09:44→14:47)
[2018-07-20] MEDS: Apixaban 5 MG TAB PO ×2 (09:44→20:56)
[2018-07-20] MEDS: cloNIDine 0.1 MG TAB 0.2 MG PO ×3 (09:44→20:57)
[2018-07-20] MEDS: Venlafaxine 37.5 MG CAPCR 75 MG PO (09:44)
[2018-07-20] MEDS: Lactobacillus Acidophilus CAP 1 CAP PO ×3 (09:44→20:57)
[2018-07-20] MEDS: Multivitamin w/Minerals TAB 1 TAB PO (09:44)
[2018-07-20] MEDS: Folic Acid 1 MG TAB PO (09:44)
[2018-07-20] MEDS: Sodium Bicarbonate 650 MG TAB PO ×3 (09:44→20:57)
[2018-07-20] MEDS: Pantoprazole 40 MG TABCR PO ×2 (09:45→20:55)
[2018-07-20] MEDS: Magnesium Chloride 64 MG TABCR PO ×2 (09:45→20:57)
[2018-07-20] MEDS: Ferrous Sulfate 325 MG TAB PO ×2 (09:45→20:56)
[2018-07-20] MEDS: Cyanocobalamin 500 MCG TAB 1000 MCG PO (09:46)
[2018-07-20] MEDS: Normal Saline Flush 10 ML SYR IVP (09:46)
[2018-07-20] MEDS: Insulin Aspart 300 UNITS/3 ML PEN SC ×6 (09:47→17:03)
[2018-07-20] MEDS: Fluticasone NASAL SPRAY 16 GM BTL NS (09:51)
--- NOTE | 2018-07-20 11:36 | CM.SWINGPC ---
- If Service Date Differs Date of service: 07/19/18 Time of Service: 11:00 Swingbed Plan of Care Plan of care: SWING BED PROGRAM ACTIVITIES/DISCHARGE PLAN OF CARE ACTIVITIES PLAN Date:07/19/18 Identified Need: Daily individual activities Brendan identifies Television as the activity he enjoys as well as pet, music and reikie therapy. Intervention/Plan:Activity Cart, Music therapy, Television, Phone, Pet therapy, Reiki and Ronnie. Initials JERROD DISCHARGE PLAN Date:07/19/18 Identified Need:IV antibiotics treat MRSA infection PT and OT therapy related to prolonged hospitalization and recent surgery right elbow with hardware removal. Brendan is right handed and will need support is using his left hand for the next 6 weeks. Intervention/Plan:Vancomycin daily PT and OT ordered. Initials JERROD
--- NOTE | 2018-07-20 11:45 | CM.SBPSYCH ---
- If Service Date Differs Date of service: 07/19/18 Time of Service: 11:00 SB Psychosocial/Act.Assessment - Hospital Admission Admission Date: 07/18/18 Admission From:: [facility] Diagnosis:: Septic Arthritis MRSA - Swing Bed Admission Swing Bed Admit Date:: 07/18/18 Swing Bed Level of Care: Level 1/SNF - Social Supports PREVIOUS FUNCTIONAL STATUS/SOCIAL/FAMILY SUPPORTS:: Brendan is a [place] resident at the [facility] in [place] and requires assistance with all ADLs. Brendan has a sister, Lian Hardy (P#[phone]) who lives in [facility] and though they have limited contact via phone every couple of weeks-she is his only identified family support. Brendan enjoys reading and watching TV. - Prior to Admission Living Arrangements/Environment Prior to Admission:: Brendan lives at the [facility] in [place], [place]. Brendan has been there for several years. - Work History Employment Status:: Disabled - : No Posey's Spouse: No - Benefits Financial: Social Security, Medicare, Medicaid - Christianity Active Mandaen Member:: No - Interests Hobbies:: Likes television and old music - Medical History PAST MEDICAL HISTORY/PAST SURGICAL HISTORY:: CHF, Anemia, Anxiety, Back Pain, Bipolar Disorder, CAD, Cardiopulmonary arrest with successful resuscitation, cholelithiasis, anxiety, insomnia, chronic pain, CKD, Crohn's Disease, DM type 2 with diabetic neuropathy, diabetic foot ulcer, dyslipidemia, heme positive stool, hemorrhagic cystitis, hypertension, hypoandrogenism, hypothyroidism, impaired mobility and ADLs, Obesity, Pedal edema, Osteoarthritis of both knees, poor self care, poorly controlled DM2 with circulatory disorder, RA, TKA, Fracture ORIF R distal humerus fracture. Past Psychiatric Treatment:: History of Bipolar - Admission Data Reason for Swing Bed Admission:: IV antibiotics for septic arthritis and PT/OT Discharge Plan:: Return to his [place] [facility] [place] with follow up Orthopedics and Infectious disease. [place] he will be able to return [place] the [facility] [place] this week on daily IV antibiotics. Assessment: Brendan is alert and engaged he smiles frequently during CM assessment. He states he was happy to return to [facility] from [facility]. He reports that the food portions where to small at [facility]. He is hopeful that he will be able to return to the [facility] [place] this week. He is trying to use his left hand for writing. He will need PT and OT during his recovery from recent procedure. The katty per provider need to be removed from his left elbow on 07/23/18. Dressing orders and instructions will need to be forwarded to the [facility] [place]. Brendan will need to have his dental appointment rescheduled which he missed when he transfered to [facility]. He also has not had his appointment with GI at [facility] for Maureen since his last discharge. CM will contact the [facility] [place] to review Brendan prior to discharge for follow up at the facility. Brush Clearing Laborer: Andreina Barnett Date Assessment was completed:: 07/19/18
--- NOTE | 2018-07-20 12:01 | PT.INNT ---
Date of service: 07/20/18 Time of Service: 12:01 PT Notes 07/20/18 Pt refused PT for today and states that he will participate tomorrow.
--- NOTE | 2018-07-20 12:02 | CMSA_ITS ---
- If Service Date Differs Date of service: 07/19/18 Time of Service: 11:00 SB Psychosocial/Act.Assessment - Hospital Admission Admission Date: 07/18/18 Admission From:: [facility] Diagnosis:: Septic Arthritis MRSA - Swing Bed Admission Swing Bed Admit Date:: 07/18/18 Swing Bed Level of Care: Level 1/SNF - Social Supports PREVIOUS FUNCTIONAL STATUS/SOCIAL/FAMILY SUPPORTS:: Brendan is a shelter resident at the [facility] facility in [place] and requires assistance with all ADLs. Brendan has a sister, Lian Hardy (P#[phone]) who lives in [facility] and though they have limited contact via phone every couple of weeks-she is his only identified family support. Brendan enjoys reading and watching TV. - Prior to Admission Living Arrangements/Environment Prior to Admission:: Brendan lives at the [facility] in [place], [place]. Brendan has been there for several years. - Work History Employment Status:: Disabled - : No [employer] Spouse: No - Benefits Financial: Social Security, Medicare, Medicaid - Jehovah'S Witness Active Mu-Is[employer] Member:: No - Interests Hobbies:: Likes television and old music - Medical History PAST MEDICAL HISTORY/PAST SURGICAL HISTORY:: CHF, Anemia, Anxiety, Back Pain, Bipolar Disorder, CAD, Cardiopulmonary arrest with successful resuscitation, cholelithiasis, anxiety, insomnia, chronic pain, CKD, Crohn's Disease, DM type 2 with diabetic neuropathy, diabetic foot ulcer, dyslipidemia, heme positive stool, hemorrhagic cystitis, hypertension, hypoandrogenism, hypothyroidism, impaired mobility and ADLs, Obesity, Pedal edema, Osteoarthritis of both knees, poor self care, poorly controlled DM2 with circulatory disorder, RA, TKA, Fracture ORIF R distal humerus fracture. Past Psychiatric Treatment:: History of Bipolar - Admission Data Reason for Swing Bed Admission:: IV antibiotics for septic arthritis and PT/OT Discharge Plan:: Return to his residence at the [facility] with follow up Orthopedics and Infectious disease. [place] he will be able to return to the [facility] this week on daily IV antibiotics. Assessment: Brendan is alert and engaged he smiles frequently during CM assessment. He states he was happy to return to [facility] from [facility]. He reports that the food portions where to small at [facility]. He is hopeful that he will be able to return to the [facility] this week. He is trying to use his left hand for writing. He will need PT and OT during his recovery from recent procedure. The katty per provider need to be removed from his left elbow on 07/23/18. Dressing orders and instructions will need to be forwarded to the [facility]. Brendan will need to have his dental appointment rescheduled which he missed when he transfered to [facility]. He also has not had his appointment with GI at [facility] for Maureen since his last discharge. CM will contact the [facility] to review Brendan prior to discharge for follow up at the facility. Bi Developer: Andreina Barnett Date Assessment was completed:: 07/19/18
--- NOTE | 2018-07-20 13:52 | CHAPLAIN ---
Brendan told me about his time at [facility] and his transfer back here. He enjoyed the ambulance ride, but said he didn't like [facility] because half the nurses were good and half were terrible. He is looking forward to getting back to the [facility] because his stuff is there and the recliner is more comfortable. The surgery on his elbow, which removed a piece of metal, will hopefully end the infections he has been getting, he said. I will continue to visit Brendan. He thinks he may go back to the [facility] on Friday or .
[2018-07-20 15:43] VITALS: BP 133/54; PULSE 50; RESP 20; TEMP 36.4; O2SAT 99
[2018-07-20] MEDS: Insulin Glargine 300 UNITS/3 ML PEN 60 UNITS SC (21:03)
[2018-07-20 22:16] VITALS: BP 145/77; PULSE 51; RESP 18; TEMP 36.6; O2SAT 97
[2018-07-21] MEDS: Gabapentin 100 MG CAP PO ×4 (01:13→20:47)
[2018-07-21] MEDS: traZODone 50 MG TAB PO (01:13)
[2018-07-21] MEDS: Melatonin 3 MG TAB 6 MG PO (01:13)
[2018-07-21] MEDS: risperiDONE 1 MG TAB 3 MG PO (01:13)
[2018-07-21] MEDS: Normal Saline Flush 10 ML SYR IVP ×3 (01:26→20:46)
[2018-07-21] MEDS: HYDROmorphone 2 MG/ML VIAL 1 MG IVP (01:26)
[2018-07-21] MEDS: Levothyroxine 25 MCG TAB PO (06:18)
[2018-07-21] MEDS: oxyCODONE 5 MG TAB PO ×3 (06:18→20:47)
[2018-07-21 07:03] LABS: Abs Immature Grans 0.31 k/cumm (0.0-0.09); Absolute Lymphocyte Count 0.93 k/cumm (1.2-3.4); Absolute Monocyte Count 0.62 k/cumm (0.11-0.7); HCT 28.4 % (40.0-50.0); HGB 8.7 g/dL (13.5-17.5); Mean Corp. HGB Concentration 30.6 g/dL (32.0-36.0); Mean Corpuscular Hemoglobin 24.2 pg (27.0-33.0); Mean Corpuscular Volume 79.1 fL (80-95); Mean Platelet Volume 9.9 fL (8.0-11.0); Platelet Count 303 x1000/uL (130-400); RBC 3.59 m/cumm (4.50-6.00); RBC Distribution Width 18.3 % (11.8-14.1); White Blood Cell Count 10.37 k/cumm (4.4-10.8)
[2018-07-21 07:18] VITALS: RESP 16
[2018-07-21 07:26] LABS: Absolute Eosinophil Count 0.21 k/cumm (0.0-0.7); Anisocytosis 2+; Diff Comment Manual Differential
[2018-07-21 07:27] LABS: Anion Gap 9.8 mmol/L (3-11); BUN 68 mg/dL (7-18); CO2 16.2 mmol/L (21.0-32.0); CREATININE 1.79 mg/dL (0.70-1.30); Chloride 109 mmol/L (98-107); Estimated GFR 39.06 (mL/min/1.73m2); Glucose 165 mg/dL (70-100); Hypochromasia 2+; Magnesium 1.9 mg/dL (1.8-2.4); Microcytosis 2+; Poikilocytes 2+; Potassium 5.2 mmol/L (3.5-5.1); Sodium 135 mmol/L (136-145)
[2018-07-21 07:30] VITALS: BP 173/79; PULSE 66; RESP 19; TEMP 36.6; O2SAT 97
[2018-07-21] MEDS: Insulin Aspart 300 UNITS/3 ML PEN SC ×5 (09:02→18:16)
[2018-07-21] MEDS: Fluticasone NASAL SPRAY 16 GM BTL NS (09:03)
[2018-07-21] MEDS: Multivitamin w/Minerals TAB 1 TAB PO (09:04)
[2018-07-21] MEDS: Lactobacillus Acidophilus CAP 1 CAP PO ×3 (09:04→20:47)
[2018-07-21] MEDS: predniSONE 10 MG TAB 15 MG PO (09:04)
[2018-07-21] MEDS: Furosemide 40 MG TAB PO (09:05)
[2018-07-21] MEDS: Magnesium Chloride 64 MG TABCR PO ×2 (09:05→20:47)
[2018-07-21] MEDS: Ascorbic Acid 500 MG TAB PO ×2 (09:05→20:48)
[2018-07-21] MEDS: Ferrous Sulfate 325 MG TAB PO ×2 (09:05→20:47)
[2018-07-21] MEDS: Apixaban 5 MG TAB PO ×2 (09:05→20:48)
[2018-07-21] MEDS: Cyanocobalamin 500 MCG TAB 1000 MCG PO (09:05)
[2018-07-21] MEDS: Sodium Bicarbonate 650 MG TAB PO ×3 (09:05→20:48)
[2018-07-21] MEDS: cloNIDine 0.1 MG TAB 0.2 MG PO ×2 (09:06→20:47)
[2018-07-21] MEDS: Folic Acid 1 MG TAB PO (09:06)
[2018-07-21] MEDS: Pantoprazole 40 MG TABCR PO ×2 (09:06→20:48)
[2018-07-21] MEDS: Venlafaxine 37.5 MG CAPCR 75 MG PO (09:06)
--- NOTE | 2018-07-21 11:03 | OTIE_ITS ---
Occupational Therapy Notes Inpatient Occupational Therapy Evaluation Date: 07/21/18 Referring Doctor:Ariel Bravo MD OT Orders: (R) elbow septic arthritis, (R) hand/arm weakness post-op Precautions: Fall Risk, Contact PATIENT PROFILE/ADMITTING DIAGNOSIS: Pt is a 58 year old male who has been admitted multiple times to [facility] from [facility]. He was admitted Swing bed rehabilitation for right elbow Septic Arthritis with concurrent MRSA Bacteremia pending re-admission to [facility]. 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) Palliative care encounter (Acute) Pulmonary hypertension (Chronic) Toxic metabolic encephalopathy (Resolved) Advance directive on file (Chronic) Chronic cholecystitis (Chronic) 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 2 diabetes mellitus (Ruled-out) HCAP (healthcare-associated pneumonia) (Resolved) MRSA bacteremia (Acute) Ambulatory dysfunction (Chronic) Diabetic foot ulcer (Chronic) Poorly controlled type 2 diabetes mellitus with circulatory disorder (Chronic) Adrenal insufficiency (Chronic) CKD (chronic kidney disease) (Chronic) Cardiopulmonary arrest with successful resuscitation (Resolved) Heme positive stool (Chronic) Sepsis (Resolved) Pedal edema (Chronic) Chronic insomnia (Chronic) Hypertension (Chronic) Chronic pain (Chronic) Hypothyroidism (Chronic) Obesity (Chronic) Back pain (Chronic 06/21/13) Inability to get out of bed (Chronic 06/21/13) Poor self care (Chronic 06/21/13) Chronic bipolar disorder (Chronic) CAD (coronary artery disease) (Chronic) Dyslipidemia (Chronic) Rheumatoid arthritis (Chronic) Osteoarthritis of both knees (Chronic) Cholelithiasis (Chronic) Impaired mobility and ADLs (Chronic) Hemorrhagic cystitis (Inactive) Anemia (Chronic) Chronic anxiety (Chronic) Ulcerative colitis (Chronic) Surgical History History of insertion of T-tube into biliary tract (Chronic) S/P colectomy (Chronic) Arthroplasty of knee (Resolved 03/18/12) Fracture, Open Treatment (Resolved) Current Functional Limitations: Decreased functional activity tolerance, decreased (I) in ADLs, decreased (B) UE ROM, increased pain in (R) UE decreasing gross and fine motor coordination during ADLs. Social History/Home Situation: Pt resides at [facility]. Pt is well known to OT. He states that he had surgery on his (R) UE to remove a metal plate in his (R) elbow. He notes that he has not had PT/OT since surgery and is lacking ROM in his (R) UE and has extreme weakness limiting his (I) in ADLs/IADLs. Equipment owned/DME: FWW which he uses for ambulation, he is a resident of SNF so all other DME are met through the facility. SUBJECTIVE: Pt was sitting on the side of his bed when OT arrived. He is pleasant and reports that he is planning to return to the [facility] this week. OBJECTIVE: General Observation: Downing, IV (L) UE, telemetry, T-tube, Mental Status: A&Ox3 Pain: c/o pain in (R) UE. 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 SPECIAL TESTS: Daily Activity Limitations Standardized Measure [facility] AM -PAC ?6 clicks? Daily Activity Inpatient Short Form: Raw score: 10 Standardized score: 27.31 CMS score: 74.70% INFORMED CONSENT/EDUCATION: Pt instructed in purpose of OT Consult and plan of care. ASSESSMENT: Patient is a 58-year-old male referred to occupational therapy services after being admitted Swing bed rehabilitation for right elbow Septic Arthritis with concurrent MRSA Bacteremia pending re-admission to [facility]. Patient presents with clinical signs and symptoms consistent with this dx and deconditioning, as demonstrated by the following impairment level findings: Decreased (B) UE ROM, Decreased (B) UE strengthening, decreased functional activity tolerance, decreased (I) in ADLs, decreased functional dynamic simulations. Impairments are contributing to the following functional limitations: Difficulty performing ADL routine per pt's baseline, decreased functional mobility, decreased gross and fine motor control of (B) UE. OT recommends that pt return to [facility] when medically cleared per MD. AMPAC score 10, CMS score 74.70% Patient is assessed as a Moderate 06493 complexity based on the following: History: See Above Examination: See Above Presentation: Evolving Decision Making: AMPAC score 10, CMS score 74.70% GOALS Goals x1 week in hospital setting 1. Transfers CGA, FWW 2. Dressing: Sitting on side of bed, pt will be able to put (B) UE into the hospital gown mod (A) with min verbal cues. 3. Bathing: Sitting on side of bed pt will be able to wash face, (B) UE and abdomen min (A) and upper legs with min verbal cues. PLAN OF CARE/TREATMENT PLAN: 1x/day, 5 days/ week x 1week Initiate Occupational Therapy Services for bathing, dressing, grooming, toileting, eating, transfer training. DISCHARGE RECOMMENDATIONS Return to [facility] when medically cleared per MD. TREATMENT TIME/MINUTES/CODES 44174, 15 minutes (09:55) DAVID Hi/[facility]
[2018-07-21 13:23] VITALS: RESP 18
--- NOTE | 2018-07-21 13:55 | PDOC.CMPRO ---
Care Management Progress Note S/O-Met with Brendan today. He was tentatively scheduled for return to the [facility] today, but when CM contacted the [facility], they wanted orders which advised them MD would not complete until day of d/c. Sent them clinical information and current medication list. Dr Bravo actually spoke with the [facility] and advised that he would have infusion done tomorrow at 12 Noon, so that he could be ready for transfer around 2 PM. They have agreed to accept him back tomorrow. Contacted [facility] [[email or web address] and set up w/c van transport for 2:15 tomorrow. Advised CM will confirm this in AM with both the [facility] and [facility] [[email or web address] Brendan was advised of this plan and is agreeable with it. A-58 yo man admitted to [facility] in transfer from [facility] until he could return to his home at the [facility] P-d/c back to the [facility] tomorrow as per MD, via [facility] [[email or web address]] w/c van at 2:15 pm. [facility] [[email or web address]] has agreed to return the w/c to [facility].
[2018-07-21 14:00] LABS: Vancomycin, Trough 26.4 ug/mL (10.0-20.0)
--- NOTE | 2018-07-21 14:23 | PTTR_ITS ---
Date of service: 07/21/18 Time of Service: 14:21 PT Notes Inpatient Physical Therapy Treatment Note [facility] Date: 07/21/2018 PRECAUTIONS: Fall SUBJECTIVE: Brendan states that he has been sleepy since he was transferred to [facility] from [place]. OBJECTIVE: PAIN: Patient c/o R elbow discomfort. BED MOBILITY/TRANSFERS Supine-sit: S Sit-stand: SBA Stand-sit: SBA GAIT Assistive Device: FWW Weight bearing: Full Assist: CGA Distance: 3' forward/backward + 5' Deviation: Seated rest, shakiness. THEREX: Patient completed ankle pumps x20. He refused additional ther ex. ASSESSMENT: Patient tolerated a progression in gait distance with FWW support and CGA, requiring seated rest due to weakness and fatigue. Patient would benefit from continued gait and transfer training, as well as strengthening for improved mobility and improved activity tolerance. PLAN: Continue with PT's POC TREATMENT CODE/TIME: 15 minutes; [id number]
[2018-07-21 15:02] VITALS: BP 128/71; PULSE 44; RESP 18; TEMP 36; O2SAT 98
--- NOTE | 2018-07-21 15:21 | CMPROGNOTE_ITS ---
Care Management Progress Note S/O-Met with Brendan today. He was tentatively scheduled for return to the [facility] today, but when CM contacted the [facility], they wanted orders which advised them MD would not complete until day of d/c. Sent them clinical information and current medication list. Dr Bravo actually spoke with the [facility] and advised that he would have infusion done tomorrow at 12 Noon, so that he could be ready for transfer around 2 PM. They have agreed to accept him back tomorrow. Contacted [facility] and set up w/c van transport for 2:15 tomorrow. Advised CM will confirm this in AM with both the [facility] and [facility]. Brendan was advised of this plan and is agreeable with it. A-58 yo man admitted to [facility] in transfer from [facility] until he could return to his home at the [facility]. P-d/c back to the [facility] tomorrow as per MD, via [facility] w/c van at 2:15 pm. [facility] has agreed to return the w/c to [facility].
[2018-07-21 16:21] VITALS: BP 136/75; PULSE 44; RESP 20; TEMP 37.1; O2SAT 96
[2018-07-21] MEDS: VANCOMYCIN 750 MG in Normal Saline 250 ML 167.007 ML IVPB (18:15)
[2018-07-21] MEDS: Insulin Glargine 300 UNITS/3 ML PEN 60 UNITS SC (20:58)
[2018-07-21 20:59] VITALS: BP 148/80; PULSE 51; RESP 16; TEMP 36.6; O2SAT 95
[2018-07-22] MEDS: Melatonin 3 MG TAB 6 MG PO ×2 (01:10→23:10)
[2018-07-22] MEDS: traZODone 50 MG TAB PO ×2 (01:10→23:10)
[2018-07-22] MEDS: risperiDONE 1 MG TAB 3 MG PO ×2 (01:10→23:10)
[2018-07-22] MEDS: oxyCODONE 5 MG TAB PO ×3 (06:29→20:25)
[2018-07-22] MEDS: Levothyroxine 25 MCG TAB PO (06:29)
[2018-07-22 07:16] LABS: Abs Immature Grans 0.36 k/cumm (0.0-0.09); HCT 30.8 % (40.0-50.0); HGB 9.7 g/dL (13.5-17.5); Mean Corp. HGB Concentration 31.5 g/dL (32.0-36.0); Mean Corpuscular Hemoglobin 24.6 pg (27.0-33.0); Mean Platelet Volume 10.4 fL (8.0-11.0); Platelet Count 336 x1000/uL (130-400); RBC 3.95 m/cumm (4.50-6.00); RBC Distribution Width 18.4 % (11.8-14.1); White Blood Cell Count 11.39 k/cumm (4.4-10.8)
[2018-07-22 07:26] LABS: Anion Gap 8.9 mmol/L (3-11); BUN 75 mg/dL (7-18); CO2 18.1 mmol/L (21.0-32.0); CREATININE 1.94 mg/dL (0.70-1.30); Chloride 107 mmol/L (98-107); Glucose 148 mg/dL (70-100); Potassium 5.6 mmol/L (3.5-5.1); Sodium 134 mmol/L (136-145)
[2018-07-22 07:36] LABS: Absolute Basophil Count 0.11 k/cumm (0.0-0.2); Absolute Eosinophil Count 0.23 k/cumm (0.0-0.7); Absolute Neutrophil Count 9.34 k/cumm (1.2-6.7)
[2018-07-22 07:37] LABS: Anisocytosis 2+; Diff Comment Manual Differential; Hypochromasia 1+; Microcytosis 1+; Poikilocytes 2+; Polychromasia Present
[2018-07-22 07:50] VITALS: BP 166/91; PULSE 46; RESP 18; TEMP 36.6; O2SAT 97
[2018-07-22] MEDS: Insulin Aspart 300 UNITS/3 ML PEN SC ×6 (08:49→17:04)
[2018-07-22] MEDS: Normal Saline Flush 10 ML SYR IVP ×2 (08:50→15:55)
[2018-07-22] MEDS: Magnesium Chloride 64 MG TABCR PO ×2 (08:51→20:25)
[2018-07-22] MEDS: Sodium Bicarbonate 650 MG TAB PO ×3 (08:52→20:25)
[2018-07-22] MEDS: Lactobacillus Acidophilus CAP 1 CAP PO ×3 (08:52→20:25)
[2018-07-22] MEDS: Pantoprazole 40 MG TABCR PO ×2 (08:52→20:26)
[2018-07-22] MEDS: Multivitamin w/Minerals TAB 1 TAB PO (08:52)
[2018-07-22] MEDS: predniSONE 10 MG TAB 15 MG PO (08:53)
[2018-07-22] MEDS: Gabapentin 100 MG CAP PO ×3 (08:53→20:25)
[2018-07-22] MEDS: Ascorbic Acid 500 MG TAB PO ×2 (08:53→20:25)
[2018-07-22] MEDS: Venlafaxine 37.5 MG CAPCR 75 MG PO (08:54)
[2018-07-22] MEDS: Folic Acid 1 MG TAB PO (08:54)
[2018-07-22] MEDS: Ferrous Sulfate 325 MG TAB PO ×2 (08:54→20:25)
[2018-07-22] MEDS: Furosemide 40 MG TAB PO (08:55)
[2018-07-22] MEDS: Apixaban 5 MG TAB PO ×2 (08:55→20:25)
[2018-07-22] MEDS: Cyanocobalamin 500 MCG TAB 1000 MCG PO (09:00)
[2018-07-22] MEDS: Fluticasone NASAL SPRAY 16 GM BTL NS (09:01)
[2018-07-22 10:05] VITALS: O2SAT 98
--- NOTE | 2018-07-22 11:06 | OT.INTREAT ---
Date of service: 07/22/18 Time of Service: 10:10 Occupational Therapy Notes Occupational Therapy Inpatient Treatment Note Date: 07/22/18 PRECAUTIONS: Contact, Fall SUBJECTIVE: Pt states that he is feeling better. notes that pt will not be discharged today but will go tomorrow. OBJECTIVE: PAIN:no c/o pain FUNCTIONAL MOBILITY Rolling L/R: (I) Supine-sit: (S) BATHING: Lying in bed with max (A) set up Upper Body: (I) lower face and (L) hand, max (A) upper face, back, underarms (B), abdomen Lower Body: Max (A) DRESSING: Sitting on side of bed Upper Extremity: Mod (A) with decreased (R) UE ROM Lower Extremity: Max (A) don and doffing (B) socks ASSESSMENT/PLAN: Pt presents with decreased functional activity tolerance today. He requires increased (A) with his bathing routine which is difficult for him to perform at this time d/t weakness from surgery and overall decreased mobility. Pts (L) UE is able to move at his baseline level of function which allows increased functional (I) in his ADL routines. OT will continue to progress pt towards goals established at initial evaluation. TREATMENT CODES/TIME: [id number], 50 minutes (10:10) Suzanne Javier OTR/[facility]
--- NOTE | 2018-07-22 11:13 | OTTR_ITS ---
Date of service: 07/22/18 Time of Service: 10:10 Occupational Therapy Notes Occupational Therapy Inpatient Treatment Note Date: 07/22/18 PRECAUTIONS: Contact, Fall SUBJECTIVE: Pt states that he is feeling better. notes that pt will not be discharged today but will go tomorrow. OBJECTIVE: PAIN:no c/o pain FUNCTIONAL MOBILITY Rolling L/R: (I) Supine-sit: (S) BATHING: Lying in bed with max (A) set up Upper Body: (I) lower face and (L) hand, max (A) upper face, back, underarms (B), abdomen Lower Body: Max (A) DRESSING: Sitting on side of bed Upper Extremity: Mod (A) with decreased (R) UE ROM Lower Extremity: Max (A) don and doffing (B) socks ASSESSMENT/PLAN: Pt presents with decreased functional activity tolerance today. He requires increased (A) with his bathing routine which is difficult for him to perform at this time d/t weakness from surgery and overall decreased mobility. Pts (L) UE is able to move at his baseline level of function which allows increased functional (I) in his ADL routines. OT will continue to progress pt towards goals established at initial evaluation. TREATMENT CODES/TIME: [id number], 50 minutes (10:10) Suzanne Javier OTR/[facility]
[2018-07-22 13:52] VITALS: BP 139/79; PULSE 62
[2018-07-22] MEDS: cloNIDine 0.1 MG TAB PO ×2 (13:54→20:25)
--- NOTE | 2018-07-22 15:53 | PT.INTREAT ---
Date of service: 07/22/18 Time of Service: 15:53 PT Notes Inpatient Physical Therapy Treatment Note [facility] Date: 07/22/2018 PRECAUTIONS: Fall SUBJECTIVE: Brendan stating that he continues to feel weak, although is happy about having his hair washed today OBJECTIVE: PAIN: No c/o pain BED MOBILITY/TRANSFERS Sit-stand: SBA Stand-sit: SBA GAIT Assistive Device: FWW Weight bearing: Full Assist: CGA Distance: 5 side steps + 5' Deviation: Shakiness Static standing x3 minutes with CGA and FWW THEREX: Patient completed several lower extremity strengthening exercises, in a seated position, as per flow sheet. ASSESSMENT: Patient tolerated session with complaint of increased fatigue with activity. Patient would benefit from continued gait and transfer training as well as strengthening for improved mobility and improved ability to perform daily functional tasks at a more independent level. PLAN: Continue with PTs POC TREATMENT CODE/TIME: 20 minutes; [id number]
[2018-07-22] MEDS: VANCOMYCIN 750 MG in Normal Saline 250 ML 167.007 ML IVPB (15:55)
[2018-07-22 15:58] VITALS: BP 149/80; PULSE 56; RESP 18; TEMP 36.1; O2SAT 99
--- NOTE | 2018-07-22 19:35 | PDOC.CMPRO ---
- If Service Date Differs Date of service: 07/22/18 Time of Service: 19:35 Care Management Progress Note S/O-Brendan will remain in [facility] one more day for medication adjustments. Plan will be for him to have his katty removed prior to discharge on . CM notified the RN PANCHITO, Chon and IGOR. Brendan is ready to return to the [facility] and is looking forward to returning on . A-58 yo man admitted to [facility] in transfer from [facility] until he could return to his home at the [facility]. P-d/c back to the [facility] tomorrow as per , via [facility] w/c van at 2:15 pm. [facility] has agreed to return the w/c to [facility].
--- NOTE | 2018-07-22 19:39 | CMPROGNOTE_ITS ---
- If Service Date Differs Date of service: 07/22/18 Time of Service: 19:35 Care Management Progress Note S/O-Brendan will remain in [facility] one more day for medication adjustments. Plan will be for him to have his katty removed prior to discharge on . CM notified the RN PANCHITO, Chon and IGOR. Brendan is ready to return to the [facility] and is looking forward to returning on . A-58 yo man admitted to [facility] in transfer from [facility] until he could return to his home at the [facility]. P-d/c back to the [facility] tomorrow as per , via [facility] w/c van at 2:15 pm. [facility] has agreed to return the w/c to [facility].
[2018-07-22] MEDS: Insulin Glargine 300 UNITS/3 ML PEN 60 UNITS SC (23:08)
[2018-07-23 00:53] VITALS: BP 165/78; PULSE 52; RESP 20; TEMP 36.5; O2SAT 99
[2018-07-23] MEDS: Acetaminophen 325 MG TAB PO (01:07)
[2018-07-23] MEDS: Levothyroxine 25 MCG TAB PO (06:16)
[2018-07-23] MEDS: oxyCODONE 5 MG TAB PO ×2 (06:16→12:31)
[2018-07-23] MEDS: Normal Saline Flush 10 ML SYR IVP ×3 (06:42→13:05)
[2018-07-23 07:25] LABS: Anion Gap 8.8 mmol/L (3-11); BUN 75 mg/dL (7-18); CO2 19.2 mmol/L (21.0-32.0); CREATININE 1.88 mg/dL (0.70-1.30); Calcium 8.9 mg/dL (8.5-10.1); Chloride 106 mmol/L (98-107); Estimated GFR 36.91 (mL/min/1.73m2); Glucose 171 mg/dL (70-100); Potassium 4.8 mmol/L (3.5-5.1); Sodium 134 mmol/L (136-145)
[2018-07-23 08:00] VITALS: BP 121/74; PULSE 46; RESP 14; TEMP 35.7; O2SAT 99
[2018-07-23 08:30] VITALS: BP 130/91; PULSE 84
--- NOTE | 2018-07-23 08:30 | W.INDIABCONS ---
Date of service: 07/23/18 Time of Service: 08:30 Diabetes Inpatient Consult DESCRIPTION/ASSESSMENT: Follow up for diabetes consult for Brendan Corley who has had several consults in the past months. Blood sugars here fluctuating from fasting less than 180 to 320-390s as the day progresses. He continues on his usual 60u Lantus, resistant insulin correction and insulin:carb at 1:10. He is also chronically on Prednisone. He eats 50-60grams carbohydrate most meals. INTERVENTION: Insulin for carbohydrate appears to be inadequate as the blood sugars increase as the day progresses and corrects overnight. Suggest insulin:carb at 1:5. This may mean his basal Lantus dose can be lowered 10units to 50 units and follow fasting blood sugar. PLAN: As above, intensify insulin to carbohydrate to 1:5grams and decrease basal insulin up to 10 units to 50units once a day Time Spent in Nutritional Counseling and Treatment: 0
[2018-07-23] MEDS: Magnesium Chloride 64 MG TABCR PO (09:30)
[2018-07-23] MEDS: predniSONE 10 MG TAB 15 MG PO (09:31)
[2018-07-23] MEDS: Ferrous Sulfate 325 MG TAB PO (09:32)
[2018-07-23] MEDS: Sodium Bicarbonate 650 MG TAB PO ×2 (09:32→14:12)
[2018-07-23] MEDS: Gabapentin 100 MG CAP PO ×2 (09:32→14:11)
[2018-07-23] MEDS: amLODIPine 5 MG TAB PO (09:32)
[2018-07-23] MEDS: Lactobacillus Acidophilus CAP 1 CAP PO ×2 (09:32→14:12)
[2018-07-23] MEDS: Ascorbic Acid 500 MG TAB PO (09:32)
[2018-07-23] MEDS: Multivitamin w/Minerals TAB 1 TAB PO (09:32)
[2018-07-23] MEDS: Venlafaxine 37.5 MG CAPCR 75 MG PO (09:33)
[2018-07-23] MEDS: cloNIDine 0.1 MG TAB PO ×2 (09:33→14:11)
[2018-07-23] MEDS: Apixaban 5 MG TAB PO (09:34)
[2018-07-23] MEDS: Pantoprazole 40 MG TABCR PO (09:34)
[2018-07-23] MEDS: Folic Acid 1 MG TAB PO (09:34)
[2018-07-23] MEDS: Furosemide 40 MG TAB PO (09:34)
[2018-07-23] MEDS: Insulin Aspart 300 UNITS/3 ML PEN SC ×4 (09:35→12:30)
[2018-07-23] MEDS: Cyanocobalamin 500 MCG TAB 1000 MCG PO (09:35)
[2018-07-23] MEDS: Fluticasone NASAL SPRAY 16 GM BTL NS (09:38)
[2018-07-23 09:50] VITALS: O2SAT 99
--- NOTE | 2018-07-23 10:41 | PT.INTREAT ---
Date of service: 07/23/18 Time of Service: 10:41 PT Notes 07/23/18 SUBJECTIVE: Brendan stating he is hoping to go back to the [facility] today. He is feeling better and is having minimal pain in the right elbow. He notes his legs continue to feel weak and is unable to walk a great distance. OBJECTIVE: Supine in bed. Agreeable to PT treatment. TRANSFERS Supine to sit: I Sit to supine: I Sit to stand: I Stand to sit: I GAIT Device: FWW Weight bearing: Full Assist: CGA Distance: Side step to the left 5' THEREX: Supine and seated LE strengthening as noted on flow sheet. Static stand x 1 minute. See flow sheet for specifics. ASSESSMENT: Tolerates PT well today. Minimal ambulation performed today due to weakness and lack of shoes today. Pt would benefit from continued PT at the [facility] to increase strength and functional mobility. PLAN: Continue current POC as pt is here in the hospital. Treatment time: 20 minutes [id number] Raquel Rashid, TALON
--- NOTE | 2018-07-23 10:46 | PTTR_ITS ---
Date of service: 07/23/18 Time of Service: 10:41 PT Notes 07/23/18 SUBJECTIVE: Brendan stating he is hoping to go back to the [facility] today. He is feeling better and is having minimal pain in the right elbow. He notes his legs continue to feel weak and is unable to walk a great distance. OBJECTIVE: Supine in bed. Agreeable to PT treatment. TRANSFERS Supine to sit: I Sit to supine: I Sit to stand: I Stand to sit: I GAIT Device: FWW Weight bearing: Full Assist: CGA Distance: Side step to the left 5' THEREX: Supine and seated LE strengthening as noted on flow sheet. Static stand x 1 minute. See flow sheet for specifics. ASSESSMENT: Tolerates PT well today. Minimal ambulation performed today due to weakness and lack of shoes today. Pt would benefit from continued PT at the [facility] to increase strength and functional mobility. PLAN: Continue current POC as pt is here in the hospital. Treatment time: 20 minutes [id number] Raquel Rashid, TALON
--- NOTE | 2018-07-23 10:59 | W.PM.DS.N ---
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, with bone involvement without evidence of necrosis: Status: Chronic (5) Adrenal insufficiency: Status: Chronic (6) Chronic cholecystitis: Status: Chronic (7) CKD (chronic kidney disease): Status: Chronic (8) Diabetes mellitus: Status: Chronic (9) Anemia: Status: Chronic (10) Hypothyroidism: Status: Chronic (11) Advance directive on file: Status: Acute Discharge Plan Disposition Patient Disposition: [facility] Condition: Stable Discharge Details Reason For Visit: SEPTIC ARTHRITIS, MRSA BACTEREMIA Admit Date/Time: 07/18/18 15:45 Admit Provider: Ariel Bravo Attending Provider: Ariel Bravo Primary Care Provider: Anne Horowitz Hospital Course Hospital Course: Chief Complaint: MRSA Bacteremia, Right Elbow Septic Arthritis HPI: 58 year old male resident of the [facility], with a prior history of recurrent MRSA Bacteremia, admitted on 07/18 to Swing Bed Status as direct admission from [facility] with a diagnosis of right elbow Septic Arthritis with concurrent MRSA Bacteremia. Mr. Corley has been hospitalized here at [facility] with sepsis on numerous prior occasions. He has a history of Group C strep and MRSA bacteremia, as well as E. Fecalis UTI with Urosepsis in the past. He suffered a cardiopulmonary arrest previously, necess[place] [facility] [place] he was treated for Choleycystitis, and as he was deemed not a surgical candidate was treated conservatively with a pigtail catheter that remains in place. His other medical history includes DM, Adrenal insufficiency secondary to chronic steroid use, RA, Crohn's disease s/p Colectomy, OA, CKD with prior JESUS and resultant hyperkalemia, HTN, CAD, hypothyroidism, Obesity, and chronic pain. He's had recurrent UTIs, and also has a history of a non-healing diabetic foot ulcer for which he has undergone debridement in the past with excision of the right toe without evidence of Osteo. He also suffers from frequent hyperkalemia, and was diagnosed with Atrial Flutter during a recent hospitalization, for which he is on chronic anticoagulation. Mr. Corley has been treated for MRSA bacteremia on multiple prior occasions, including January of 2018, February, and April of 2018. During his last hospitalization for this in April he was treated for MRSA bacteremia again, with a negative work-up that included TTE, CT of the chest, abdomen, and pelvis, CT of the elbow, and Tagged WBC Scan. KELLEE was not obtained as the patient is a poor candidate for this procedure. He was however noted to have a swollen right elbow during that admission, but had a CT scan that was consistent with 'trauma with subsequent surgery' in the effected limb, in the setting of underlying RA. He had concluded therapy with Vancomycin. Mr. Corley presented to [facility] for evaluation of altered mental status and hypotension. He was diagnosed with sepsis, likely on the basis of right elbow infection, and due to a lack of ICU bed availability was transferred to [facility] for further evaluation and treatment. While there the patient was found to have a right elbow Septic Arthritis, initially diagnosed via bedside needle aspiration of the joint that demonstrated growth of MRSA. The patient was taken to the OR on 07/10 per verbal report, at which time he underwent hardware removal. He then underwent washout of the wound on 07/11, prior to having his first negative blood culture on 07/12. The patient was evaluated by both ID and Ortho, with plans for a 6 week total course of antibiotics from the date of the first negative blood cultures, with eventual follow-up with ID and ortho as an outpatient. Given initial hypotension the patient's antihypertensive medications were largely held. His kidney function was reported at or better than his baseline. The patient is being admitted to Level I Swing Bed Status while [facility] 3 days' [facility]. Hospital Course: (1) Septic arthritis of elbow, right: With Hardware in place, would likely explain patient's bouts of recurrent bacteremia. Previous work-up included CT of the elbow in May as well as a tagged WBC Scan. - Patient is s/p Hardware removal on 07/10, with washout on 07/11. - Emerson were removed today. Continued wound check on the elbow is recommended. - Access via Single Lumen PICC placed at [facility]. - Last + Blood culture was reported on 07/11, with clearing by repeat cultures on 07/12/2018. Plan is for 6 week course of IV Vancomycin, initiated on 07/12, with follow-up with both ortho and ID that needs to be scheduled as outpatient, [place] [facility] [place] [facility]. Antibiotic end date is for 08/23/2018, currently with dose alternating between 750mg to 1000mg of once daily Vancomycin. Recommend continued trough levels as patient's creatinine is chronically elevated and labile. (2) MRSA bacteremia: - As above. (3) Atrial flutter, paroxysmal: Recent diagnosis, likely precipitated by dehydration and infection. ECHO last checked 05/05, with normal LVEF, and no significant valvulopathy - repeated at [facility] and essentially unchanged per review of reports. Continue BB, Apixaban, with discontinued Carbamazepine previously. Patient also with a history of GIB prior to his colectomy from Crohn's, none since - however, with previous Heme + stool. PPI was optimized last hospitalization. Continue to monitor Hgb. 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 (5) Adrenal insufficiency: Due to long-term steroid use. Was recently switched from prednisone to Hydrocortef as an outpatient, but then switched back prior to his discharge from the hospital in May. Currently on 15mg daily, with plans for taper down to home regimen of 10mg at time of discharge. (6) Chronic cholecystitis: Drain appears to be functioning well and continues to drain. Exam remains benign. Has been deemed a poor surgical candidate. (7) CKD (chronic kidney disease): Noted. Monitor renal function carefully. Repeat BMP in 3 days. (8) Diabetes mellitus: Continue lantus, ISS. (9) Anemia: Microcytic, with Heme + blood on prior exam. Previous work-up showing Iron studies with low TIBC, but inappropriately normal Ferritin - potential for Anemia of Chronic Disease with superimposed blood loss. B12 and FA not deficient, but with low TSH as well. Continue thyroid replacement therapy, Ferrous Sulfate with Vitamin C, and monitor hemoglobin. Repeat Fecal Occult Blood Testing negative on 07/19. (10) Hypothyroidism: Last TSH low normal 06/29. Likely dose related due to recent weight loss. Continue replacement therapy. (11) HTN Patient's blood pressure was low at [facility] necessitating discontinuation of the majority of his medications. Clonidine has been continued due to concern for rebound. Currently on Clonidine, but with dose decreased due to bradycardia with HR's in the 40-50's. If possible, would consider weaning this medication over time, and replacing with alternative regimen if deemed appropriate. Will continue amlodipine at reduced dose, and increase if needed. Also on Terazosin. Hydralazine remains on hold. Please also note that patient's lasix was held, and now reinitiated at 40mg daily (Previously BID Dosing), and he appears euvolemic, with stable weight at 87kg. However, Mr. Corley did develop mild hyperkalemia, likely due to decrease in lasix dosing. He was initiated on low dose BID Kayexalate, which will be continued for now, but needs to be re-examined in the near future. Repeat BMP will be scheduled for 3 days to evaluate renal function. (12) Advance directive on file: Continues to remain Full Code. Home Meds and New Rx's Prescriptions: New furosemide 40 mg Tablet 40 mg PO DAILY Qty: 0 RF: 0 prednisone 10 mg Tablet 10 mg PO DAILY Qty: 0 RF: 0 amlodipine 5 mg Tablet 5 mg PO DAILY Qty: 0 RF: 0 clonidine HCl [Catapres] 0.1 mg Tablet 0.1 mg PO TID Qty: 0 RF: 0 vancomycin 750 mg recon soln 750 mg IV DAILY Qty: 1 RF: 0 Continued loperamide 2 mg Capsule 2 mg PO QID PRNRF: 0 cyanocobalamin (vitamin B-12) 1,000 mcg Tablet 1,000 mcg PO DAILY RF: 0 folic acid 1 mg Tablet 1 mg PO DAILY RF: 0 ferrous sulfate 325 mg (65 mg iron) Tablet 325 mg PO BID Qty: 0 RF: 0 ascorbic acid (vitamin C) [Vitamin C] 250 mg Tablet 1 tab PO BID RF: 0 Centrum Complete 18-400 mg-mcg Tablet 1 tab PO DAILY RF: 0 venlafaxine 75 mg Capsule,Extended Release 24hr 75 mg PO DAILY RF: 0 acidophilus-pectin, citrus 25 million cell -100 mg Tablet 1 cap PO TID Qty: 0 RF: 0 trazodone 50 mg Tablet 50 mg PO HS Qty: 30 RF: 0 levothyroxine 25 mcg Tablet 25 mcg PO DAILY@0600 Qty: 30 RF: 0 ipratropium-albuterol 0.5 mg-3 mg(2.5 mg base)/3 mL Solution For Nebulization 3 ml UPD Q6H PRN PRNQty: 1 RF: 0 Iodosorb 0.9 % Gel topical DAILY Qty: 60 RF: 0 gabapentin 100 mg Capsule 100 mg PO TID Qty: 90 RF: 0 Santyl 250 unit/gram Ointment topical DAILY Qty: 60 RF: 0 fluticasone propionate 50 mcg/actuation [place],Suspension NS DAILY Qty: 1 RF: 0 Loan Protect Cream 1 applic topical PRN PRNQty: 60 RF: 0 Loan Protect Cream topical TID Qty: 60 RF: 0 Eliquis 5 mg Tablet 5 mg PO BID Qty: 60 RF: 0 Novolog Flexpen U-100 Insulin 100 unit/mL Insulin Pen See Rx Instructions .ROUTE .COMPLEX Qty: 15 RF: 0 levalbuterol HCl 0.63 mg/3 mL Solution For Nebulization 0.63 mg UPD Q2H PRN PRN (Reason: Dyspnea) Qty: 1 RF: 0 pantoprazole 40 mg Tablet,Delayed Release (Dr/Ec) 40 mg PO BID@729,1999 Qty: 60 RF: 0 melatonin 3 mg Tablet Extended Release 6 mg PO HS Qty: 30 RF: 0 sodium bicarbonate 650 mg Tablet 650 mg PO TID Qty: 90 RF: 0 trimethobenzamide 300 mg Capsule 300 mg PO TID PRN PRN (Reason: Nausea) Qty: 30 RF: 0 risperidone [Risperdal] 1 mg tablet 3 mg PO HS RF: 0 calcium carbonate-vitamin D3 [Calcium 500 + D] 500 mg(1,250mg) -400 unit Tablet 1 tab PO BID RF: 0 oxycodone 5 mg capsule 5 mg PO Q8H RF: 0 Lantus Solostar U-100 Insulin 100 unit/mL (3 mL) insulin pen 60 unit subcut HS RF: 0 acetaminophen [Tylenol] 325 mg Tablet 325 - 650 mg PO Q4H PRN PRNQty: 0 RF: 0 terazosin 2 mg Capsule 4 mg PO BID Qty: 0 RF: 0 hydroxyzine HCl 25 mg Tablet 25 mg PO Q6H PRN PRN (Reason: Itching) Qty: 0 RF: 0 magnesium chloride [Mag 64] 64 mg Tablet,Delayed Release (Dr/Ec) 64 mg PO BID Qty: 0 RF: 0 Discontinued Lantus Solostar U-100 Insulin 100 unit/mL (3 mL) insulin pen 60 unit subcut DAILY RF: 0 clonidine HCl [Catapres] 0.1 mg Tablet 0.2 mg PO TID Qty: 90 RF: 0 furosemide 40 mg Tablet 40 mg PO BID@0830,1600 Qty: 60 RF: 0 amlodipine 10 mg Tablet 10 mg PO DAILY Qty: 30 RF: 0 prednisone 20 mg Tablet See Rx Instructions .ROUTE .COMPLEX Qty: 60 RF: 0 hydralazine 10 mg Tablet 10 mg PO TID Qty: 0 RF: 0 Discharge Instructions Stand Alone Forms: Nursing Discharge Form Activity:: Activity as Tolerated Equipment/Supplies:: No Equipment Needed Diet:: Carb Counting Renal Diet with Low Potassium Discharge Orders Discharge Orders: Discharge Order (Routine); Ordered 07/23/18 Ordered By: Ariel Bravo Other Ambulatory Orders: Basic Metabolic Panel (Routine) Timeframe: 3 Days Location: Determined by Patient Ordered By: Ariel Bravo DS: Data Vitals/I&O Vitals and I&O: Vital Signs Temperature 35.7 C L 07/23/18 08:00 Temperature Source Tympanic 07/23/18 08:00 Pulse 46 L 07/23/18 08:00 Pulse Rhythm Regular 07/23/18 02:44 Respiratory Rate 14 07/23/18 08:00 Respiratory Effort Non-Labored 07/23/18 02:44 Respiratory Depth Normal 07/23/18 02:44 Respiratory Pattern Normal 07/23/18 02:44 Blood Pressure 121/74 07/23/18 08:00 Pulse Oximetry 99 07/23/18 09:50 Oxygen Delivery Method Room Air 07/23/18 09:50 Oxygen Flow Rate 0 07/23/18 09:50 Pain Level 5 07/23/18 06:16 Comment 07/22/18 15:58 Intake & Output 07/22/18 07/22/18 07/23/18 11:59 23:59 11:59 Intake Total 350 / 1080 730 / 1080 Output Total 1400 / 3420 2020 / 3420 1100 / 1100 Balance -1050 / -2340 -1290 / -2340 -1100 / -1100 Weight 87.6 kg 87.6 kg Intake: IV 250 / 250 Oral 350 / 830 480 / 830 Output: Drainage 20 / 20 Right Lateral / 20 Urine 700 / 1950 1250 / 1950 450 / 450 Stool 700 / 1450 750 / 1450 650 / 650 Other: Urine Color Yellow Yellow Yellow Urine Appearance Clear Clear Clear Urine Odor None Normal Voiding Methods Urinal Urinal Urinal Labs on day of discharge: Labs from last 24 hours 07/23/18 06:34 Sodium 134 L Potassium 4.8 Chloride 106 Carbon Dioxide 19.2 L Anion Gap 8.8 BUN 75 H Creatinine 1.88 H Estimated GFR/1.73 m2 36.91 Glucose 171 H Calcium 8.9 Magnesium 2.0 [facility] Medical History 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) Atrial flutter, paroxysmal (Chronic) Palliative care encounter (Chronic) Pulmonary hypertension (Chronic) Chronic cholecystitis (Chronic) MRSA bacteremia (Acute) Hypomagnesemia (Chronic) Ambulatory dysfunction (Chronic) Diabetic foot ulcer (Chronic) Poorly controlled type 2 diabetes mellitus with circulatory disorder (Chronic) Adrenal insufficiency (Chronic) CKD (chronic kidney disease) (Chronic) Cardiopulmonary arrest with successful resuscitation (Resolved) Heme positive stool (Chronic) Sepsis (Resolved) Pedal edema (Chronic) Chronic insomnia (Chronic) Hypertension (Chronic) Chronic pain (Chronic) Hypothyroidism (Chronic) Obesity (Chronic) Back pain (Chronic 06/21/13) Inability to get out of bed (Chronic 06/21/13) Poor self care (Chronic 06/21/13) Chronic bipolar disorder (Chronic) CAD (coronary artery disease) (Chronic) Dyslipidemia (Chronic) Rheumatoid arthritis (Chronic) Osteoarthritis of both knees (Chronic) Cholelithiasis (Chronic) Impaired mobility and ADLs (Chronic) Hemorrhagic cystitis (Chronic) Anemia (Chronic) Chronic anxiety (Chronic) Ulcerative colitis (Chronic) Surgical History History of insertion of T-tube into biliary tract (Chronic) S/P colectomy (Chronic) Arthroplasty of knee (Resolved 03/18/12) Fracture, Open Treatment (Resolved) Social History Smoking/Tobacco Use Status: Former Tobacco Use Alcohol Intake: former Drug use: Rarely Substance use type: marijuana Housing: [facility] Do you feel safe at home: Yes
--- NOTE | 2018-07-23 11:14 | DSE_ITS ---
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, with bone involvement without evidence of necrosis: Status: Chronic (5) Adrenal insufficiency: Status: Chronic (6) Chronic cholecystitis: Status: Chronic (7) CKD (chronic kidney disease): Status: Chronic (8) Diabetes mellitus: Status: Chronic (9) Anemia: Status: Chronic (10) Hypothyroidism: Status: Chronic (11) Advance directive on file: Status: Acute Discharge Plan Disposition Patient Disposition: [facility] ([facility]) [facility] Condition: Stable Discharge Details Reason For Visit: SEPTIC ARTHRITIS, MRSA BACTEREMIA Admit Date/Time: 07/18/18 15:45 Admit Provider: Ariel Bravo Attending Provider: Ariel Bravo Primary Care Provider: Anne Horowitz Hospital Course Hospital Course: Chief Complaint: MRSA Bacteremia, Right Elbow Septic Arthritis HPI: 58 year old male resident of the [facility], with a prior history of recurrent MRSA Bacteremia, admitted on 07/18 to Swing Bed Status as direct admission from [facility] with a diagnosis of right elbow Septic Arthritis with concurrent MRSA Bacteremia. Mr. Corley has been hospitalized here at [facility] with sepsis on numerous prior occasions. He has a history of Group C strep and MRSA bacteremia, as well as E. Fecalis UTI with Urosepsis in the past. He suffered a cardiopulmonary arrest previously, necessitating a transfer to [facility] [place] which time he was treated for Choleycystitis, and as he was deemed not a surgical candidate was treated conservatively with a pigtail catheter that remains in place. His other medical history includes DM, Adrenal insufficiency secondary to chronic steroid use, RA, Crohn's disease s/p Colectomy, OA, CKD with prior JESUS and resultant hyperkalemia, HTN, CAD, hypothyroidism, Obesity, and chronic pain. He's had recurrent UTIs, and also has a history of a non-healing diabetic foot ulcer for which he has undergone debridement in the past with excision of the right toe without evidence of Osteo. He also suffers from frequent hyperkalemia, and was diagnosed with Atrial Flutter during a recent hospitalization, for which he is on chronic anticoagulation. Mr. Corley has been treated for MRSA bacteremia on multiple prior occasions, including January of 2018, February, and April of 2018. During his last hospitalization for this in April he was treated for MRSA bacteremia again, with a negative work-up that included TTE, CT of the chest, abdomen, and pelvis, CT of the elbow, and Tagged WBC Scan. KELLEE was not obtained as the patient is a poor candidate for this procedure. He was however noted to have a swollen right elbow during that admission, but had a CT scan that was consistent with 'trauma with subsequent surgery' in the effected limb, in the setting of underlying RA. He had concluded therapy with Vancomycin. Mr. Corley presented to [facility] ED from the custodial on 07/09/2018 for evaluation of altered mental status and hypotension. He was diagnosed with sepsis, likely on the basis of right elbow infection, and due to a lack of ICU bed availability was transferred to [facility] for further evaluation and treatment. While there the patient was found to have a right elbow Septic Arthritis, initially diagnosed via bedside needle aspiration of the joint that demonstrated growth of MRSA. The patient was taken to the OR on 07/10 per verbal report, at which time he underwent hardware removal. He then underwent washout of the wound on 07/11, prior to having his first negative blood culture on 07/12. The patient was evaluated by both ID and Ortho, with plans for a 6 week total course of antibiotics from the date of the first negative blood cultures, with eventual follow-up with ID and ortho as an outpatient. Given initial hypotension the patient's antihypertensive medications were largely held. His kidney function was reported at or better than his baseline. The patient is being admitted to Level I Swing Bed Status while awaiting return to the custodial in 3 days' time. Hospital Course: (1) Septic arthritis of elbow, right: With Hardware in place, would likely explain patient's bouts of recurrent bacteremia. Previous work-up included CT of the elbow in May as well as a tagged WBC Scan. - Patient is s/p Hardware removal on 07/10, with washout on 07/11. - Emerson were removed today. Continued wound check on the elbow is recommended. - Access via Single Lumen PICC placed at [facility]. - Last + Blood culture was reported on 07/11, with clearing by repeat cultures on 07/12/2018. Plan is for 6 week course of IV Vancomycin, initiated on 07/12, with follow-up with both ortho and ID that needs to be scheduled as outpatient, either at [facility] or [facility]. Antibiotic end date is for 08/23/2018, currently with dose alternating between 750mg to 1000mg of once daily Vancomycin. Recommend continued trough levels as patient's creatinine is chronically elevated and labile. (2) MRSA bacteremia: - As above. (3) Atrial flutter, paroxysmal: Recent diagnosis, likely precipitated by dehydration and infection. ECHO last checked 05/05, with normal LVEF, and no significant valvulopathy - repeated at [facility] and essentially unchanged per review of reports. Continue BB, Apixaban, with discontinued Carbamazepine previously. Patient also with a h istory of GIB prior to his colectomy from Crohn's, none since - however, with previous Heme + stool. PPI was optimized last hospitalization. Continue to monitor Hgb. 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 (5) Adrenal insufficiency: Due to long-term steroid use. Was recently switched from prednisone to Hydrocortef as an outpatient, but then switched back prior to his discharge from the hospital in May. Currently on 15mg daily, with plans for taper down to home regimen of 10mg at time of discharge. (6) Chronic cholecystitis: Drain appears to be functioning well and continues to drain. Exam remains benign. Has been deemed a poor surgical candidate. (7) CKD (chronic kidney disease): Noted. Monitor renal function carefully. Repeat BMP in 3 days. (8) Diabetes mellitus: Continue lantus, ISS. (9) Anemia: Microcytic, with Heme + blood on prior exam. Previous work-up showing Iron studies with low TIBC, but inappropriately normal Ferritin - potential for Anemia of Chronic Disease with superimposed blood loss. B12 and FA not deficient, but with low TSH as well. Continue thyroid replacement therapy, Ferrous Sulfate with Vitamin C, and monitor hemoglobin. Repeat Fecal Occult Blood Testing negative on 07/19. (10) Hypothyroidism: Last TSH low normal 06/29. Likely dose related due to recent weight loss. Continue replacement therapy. (11) HTN Patient's blood pressure was low at [facility] necessitating discontinuation of the m ajority of his medications. Clonidine has been continued due to concern for rebound. Currently on Clonidine, but with dose decreased due to bradycardia with HR's in the 40-50's. If possible, would consider weaning this medication over time, and replacing with alternative regimen if deemed appropriate. Will continue amlodipine at reduced dose, and increase if needed. Also on Terazosin. Hydralazine remains on hold. Please also note that patient's lasix was held, and now reinitiated at 40mg daily (Previously BID Dosing), and he appears euvolemic, with stable weight at 87kg. However, Mr. Corley did develop mild hyperkalemia, likely due to decrease in lasix dosing. He was initiated on low dose BID Kayexalate, which will be continued for now, but needs to be re-examined in the near future. Repeat BMP will be scheduled for 3 days to evaluate renal function. (12) Advance directive on file: Continues to remain Full Code. Home Meds and New Rx's Prescriptions: New furosemide 40 mg Tablet 40 mg PO DAILY Qty: 0 RF: 0 prednisone 10 mg Tablet 10 mg PO DAILY Qty: 0 RF: 0 amlodipine 5 mg Tablet 5 mg PO DAILY Qty: 0 RF: 0 clonidine HCl [Catapres] 0.1 mg Tablet 0.1 mg PO TID Qty: 0 RF: 0 vancomycin 750 mg recon soln 750 mg IV DAILY Qty: 1 RF: 0 Continued loperamide 2 mg Capsule 2 mg PO QID PRNRF: 0 cyanocobalamin (vitamin B-12) 1,000 mcg Tablet 1,000 mcg PO DAILY RF: 0 folic acid 1 mg Tablet 1 mg PO DAILY RF: 0 ferrous sulfate 325 mg (65 mg iron) Tablet 325 mg PO BID Qty: 0 RF: 0 ascorbic acid (vitamin C) [Vitamin C] 250 mg Tablet 1 tab PO BID RF: 0 Centrum Complete 18-400 mg-mcg Tablet 1 tab PO DAILY RF: 0 venlafaxine 75 mg Capsule,Extended Release 24hr 75 mg PO DAILY RF: 0 acidophilus-pectin, citrus 25 million cell -100 mg Tablet 1 cap PO TID Qty: 0 RF: 0 trazodone 50 mg Tablet 50 mg PO HS Qty: 30 RF: 0 levothyroxine 25 mcg Tablet 25 mcg PO DAILY@0600 Qty: 30 RF: 0 ipratropium-albuterol 0.5 mg-3 mg(2.5 mg base)/3 mL Solution For Nebulization 3 ml UPD Q6H PRN PRNQty: 1 RF: 0 Iodosorb 0.9 % Gel topical DAILY Qty: 60 RF: 0 gabapentin 100 mg Capsule 100 mg PO TID Qty: 90 RF: 0 Santyl 250 unit/gram Ointment topical DAILY Qty: 60 RF: 0 fluticasone propionate 50 mcg/actuation [place],Suspension NS DAILY Qty: 1 RF: 0 Loan Protect Cream 1 applic topical PRN PRNQty: 60 RF: 0 Loan Protect Cream topical TID Qty: 60 RF: 0 Eliquis 5 mg Tablet 5 mg PO BID Qty: 60 RF: 0 Novolog Flexpen U-100 Insulin 100 unit/mL Insulin Pen See Rx Instructions .ROUTE .COMPLEX Qty: 15 RF: 0 levalbuterol HCl 0.63 mg/3 mL Solution For Nebulization 0.63 mg UPD Q2H PRN PRN (Reason: Dyspnea) Qty: 1 RF: 0 pantoprazole 40 mg Tablet,Delayed Release (Dr/Ec) 40 mg PO BID@0730,1999 Qty: 60 RF: 0 melatonin 3 mg Tablet Extended Release 6 mg PO HS Qty: 30 RF: 0 sodium bicarbonate 650 mg Tablet 650 mg PO TID Qty: 90 RF: 0 trimethobenzamide 300 mg Capsule 300 mg PO TID PRN PRN (Reason: Nausea) Qty: 30 RF: 0 risperidone [Risperdal] 1 mg tablet 3 mg PO HS RF: 0 calcium carbonate-vitamin D3 [Calcium 500 + D] 500 mg(1,250mg) -400 unit Tablet 1 tab PO BID RF: 0 oxycodone 5 mg capsule 5 mg PO Q8H RF: 0 Lantus Solostar U-100 Insulin 100 unit/mL (3 mL) insulin pen 60 unit subcut HS RF: 0 acetaminophen [Tylenol] 325 mg Tablet 325 - 650 mg PO Q4H PRN PRNQty: 0 RF: 0 terazosin 2 mg Capsule 4 mg PO BID Qty: 0 RF: 0 hydroxyzine HCl 25 mg Tablet 25 mg PO Q6H PRN PRN (Reason: Itching) Qty: 0 RF: 0 magnesium chloride [Mag 64] 64 mg Tablet,Delayed Release (Dr/Ec) 64 mg PO BID Qty: 0 RF: 0 Discontinued Lantus Solostar U-100 Insulin 100 unit/mL (3 mL) insulin pen 60 unit subcut DAILY RF: 0 clonidine HCl [Catapres] 0.1 mg Tablet 0.2 mg PO TID Qty: 90 RF: 0 furosemide 40 mg Tablet 40 mg PO BID@0830,1600 Qty: 60 RF: 0 amlodipine 10 mg Tablet 10 mg PO DAILY Qty: 30 RF: 0 prednisone 20 mg Tablet See Rx Instructions .ROUTE .COMPLEX Qty: 60 RF: 0 hydralazine 10 mg Tablet 10 mg PO TID Qty: 0 RF: 0 Discharge Instructions Stand Alone Forms: Nursing Discharge Form Activity:: Activity as Tolerated Equipment/Supplies:: No Equipment Needed Diet:: Carb Counting Renal Diet with Low Potassium Discharge Orders Discharge Orders: Discharge Order (Routine); Ordered 07/23/18 Ordered By: Ariel Bravo Other Ambulatory Orders: Basic Metabolic Panel (Routine) Timeframe: 3 Days Location: Determined by Patient Ordered By: Ariel Bravo DS: Data Vitals/I&O Vitals and I&O: Vital Signs Temperature 35.7 C L 07/23/18 08:00 Temperature Source Tympanic 07/23/18 08:00 Pulse 46 L 07/23/18 08:00 Pulse Rhythm Regular 07/23/18 02:44 Respiratory Rate 14 07/23/18 08:00 Respiratory Effort Non-Labored 07/23/18 02:44 Respiratory Depth Normal 07/23/18 02:44 Respiratory Pattern Normal 07/23/18 02:44 Blood Pressure 121/74 07/23/18 08:00 Pulse Oximetry 99 07/23/18 09:50 Oxygen Delivery Method Room Air 07/23/18 09:50 Oxygen Flow Rate 0 07/23/18 09:50 Pain Level 5 07/23/18 06:16 Comment 07/22/18 15:58 Intake & Output 07/22/18 07/22/18 07/23/18 11:59 23:59 11:59 Intake Total 350 / 1080 730 / 1080 Output Total 1400 / 3420 2020 / 3420 1100 / 1100 Balance -1050 / -2340 -1290 / -2340 -1100 / -1100 Weight 87.6 kg 87.6 kg Intake: IV 250 / 250 Oral 350 / 830 480 / 830 Output: Drainage 20 / 20 Right Lateral 20 / 20 Urine 700 / 1950 1250 / 1950 450 / 450 Stool 700 / 1450 750 / 1450 650 / 650 Other: Urine Color Yellow Yellow Yellow Urine Appearance Clear Clear Clear Urine Odor None Normal Voiding Methods Urinal Urinal Urinal Labs on day of discharge: Labs from last 24 hours 07/23/18 06:34 Sodium 134 L Potassium 4.8 Chloride 106 Carbon Dioxide 19.2 L Anion Gap 8.8 BUN 75 H Creatinine 1.88 H Estimated GFR/1.73 m2 36.91 Glucose 171 H Calcium 8.9 Magnesium 2.0 PFSH Medical History 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) Atrial flutter, paroxysmal (Chronic) Palliative care encounter (Chronic) Pulmonary hypertension (Chronic) Chronic cholecystitis (Chronic) MRSA bacteremia (Acute) Hypomagnesemia (Chronic) Ambulatory dysfunction (Chronic) Diabetic foot ulcer (Chronic) Poorly controlled type 2 diabetes mellitus with circulatory disorder (Chronic) Adrenal insufficiency (Chronic) CKD (chronic kidney disease) (Chronic) Cardiopulmonary arrest with successful resuscitation (Resolved) Heme positive stool (Chronic) Sepsis (Resolved) Pedal edema (Chronic) Chronic insomnia (Chronic) Hypertension (Chronic) Chronic pain (Chronic) Hypothyroidism (Chronic) Obesity (Chronic) Back pain (Chronic 06/21/13) Inability to get out of bed (Chronic 06/21/13) Poor self care (Chronic 06/21/13) Chronic bipolar disorder (Chronic) CAD (coronary artery disease) (Chronic) Dyslipidemia (Chronic) Rheumatoid arthritis (Chronic) Osteoarthritis of both knees (Chronic) Cholelithiasis (Chronic) Impaired mobility and ADLs (Chronic) Hemorrhagic cystitis (Chronic) Anemia (Chronic) Chronic anxiety (Chronic) Ulcerative colitis (Chronic) Surgical History History of insertion of T-tube into biliary tract (Chronic) S/P colectomy (Chronic) Arthroplasty of knee (Resolved 03/18/12) Fracture, Open Treatment (Resolved) Social History Smoking/Tobacco Use Status: Former Tobacco Use Alcohol Intake: former Drug use: Rarely Substance use type: marijuana Housing: custodial Do you feel safe at home: Yes
--- NOTE | 2018-07-23 12:10 | DM INPTCON_ITS ---
Date of service: 07/23/18 Time of Service: 08:30 Diabetes Inpatient Consult DESCRIPTION/ASSESSMENT: Follow up for diabetes consult for Brendan Corley who has had several consults in the past months. Blood sugars here fluctuating from fasting less than 180 to 320-390s as the day progresses. He continues on his usual 60u Lantus, resistant insulin correction and insulin:carb at 1:10. He is also chronically on Prednisone. He eats 50- 60grams carbohydrate most meals. INTERVENTION: Insulin for carbohydrate appears to be inadequate as the blood sugars increase as the day progresses and corrects overnight. Suggest insulin:carb at 1:5. This may mean his basal Lantus dose can be lowered 10units to 50 units and follow fasting blood sugar. PLAN: As above, intensify insulin to carbohydrate to 1:5grams and decrease basal insulin up to 10 units to 50units once a day Time Spent in Nutritional Counseling and Treatment: 0
--- NOTE | 2018-07-23 12:41 | CMDISCH_ITS ---
- If Service Date Differs Date of service: 07/23/18 Time of Service: 12:41 LACE Index Scoring Tool - Questions: Length of Stay (in days): 4 - 6 Acuity (Admit via E.D.?): Yes Comorbidities: Diabetes w/o Complication, Liver or Renal Disease E.D. Visits: 7 - Answers: Total Score: 16 Risk of Readmission: High Risk Care Management Discharge Reason for Hospitalization: SB1 for IV antibioitcs prior to returning to the [facility] to continue abx. Discharge Plan: Brendan is being discharged back to the [facility]. He will continue IV antibiotics at the [facility]. CM coordinated transportation via [facility]. CM reviewed care with admissions and plan for follow up. Brendan will discharge to the [facility] at 1500 today. Patient/Family Education Needs: Discharge education, limitatations and follow up plan of care including follow up care per [facility] and [facility]. Services Needed at Discharge: Long-Term Facility, Transportation
[2018-07-23] MEDS: VANCOMYCIN 750 MG in Normal Saline 250 ML 167.007 ML IVPB (13:05)
--- NOTE | 2018-07-23 13:52 | OT.INDS ---
Date of service: 07/23/18 Time of Service: 13:52 Occupational Therapy Notes Occupational Therapy Inpatient Discharge Summary Date: 07/23/18 Dates of Service: 07/21/18-07/23/18 Referring Doctor:Ariel Bravo MD OT Orders: (R) elbow septic arthritis, (R) hand/arm weakness post-op Precautions: Fall Risk, Contact PATIENT PROFILE/ADMITTING DIAGNOSIS: Pt is a 58 year old male who has been admitted multiple times to [facility] from [facility]. He was admitted Swing bed rehabilitation for right elbow Septic Arthritis with concurrent MRSA Bacteremia pending re-admission to [facility]. 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) Palliative care encounter (Acute) Pulmonary hypertension (Chronic) Toxic metabolic encephalopathy (Resolved) Advance directive on file (Chronic) Chronic cholecystitis (Chronic) 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 2 diabetes mellitus (Ruled-out) HCAP (healthcare-associated pneumonia) (Resolved) MRSA bacteremia (Acute) Ambulatory dysfunction (Chronic) Diabetic foot ulcer (Chronic) Poorly controlled type 2 diabetes mellitus with circulatory disorder (Chronic) Adrenal insufficiency (Chronic) CKD (chronic kidney disease) (Chronic) Cardiopulmonary arrest with successful resuscitation (Resolved) Heme positive stool (Chronic) Sepsis (Resolved) Pedal edema (Chronic) Chronic insomnia (Chronic) Hypertension (Chronic) Chronic pain (Chronic) Hypothyroidism (Chronic) Obesity (Chronic) Back pain (Chronic 06/21/13) Inability to get out of bed (Chronic 06/21/13) Poor self care (Chronic 06/21/13) Chronic bipolar disorder (Chronic) CAD (coronary artery disease) (Chronic) Dyslipidemia (Chronic) Rheumatoid arthritis (Chronic) Osteoarthritis of both knees (Chronic) Cholelithiasis (Chronic) Impaired mobility and ADLs (Chronic) Hemorrhagic cystitis (Inactive) Anemia (Chronic) Chronic anxiety (Chronic) Ulcerative colitis (Chronic) Surgical History History of insertion of T-tube into biliary tract (Chronic) S/P colectomy (Chronic) Arthroplasty of knee (Resolved 03/18/12) Fracture, Open Treatment (Resolved) Current Functional Limitations: Decreased functional activity tolerance, decreased (I) in ADLs, decreased (B) UE ROM, increased pain in (R) UE decreasing gross and fine motor coordination during ADLs. Social History/Home Situation: Pt resides at [facility]. Pt is well known to OT. He states that he had surgery on his (R) UE to remove a metal plate in his (R) elbow. He notes that he has not had PT/OT since surgery and is lacking ROM in his (R) UE and has extreme weakness limiting his (I) in ADLs/IADLs. Equipment owned/DME: [facility] which he uses for ambulation, he is a resident of SNF so all other DME are met through the facility. This document serves as a summary of care, no skilled OT services provided for this documentation. SUBJECTIVE: NT OBJECTIVE: Dates of Service: 07/21/18-07/23/18 BATHING: Lying in bed with max (A) set up Upper Body: (I) lower face and (L) hand, max (A) upper face, back, underarms (B), abdomen Lower Body: Max (A) DRESSING: Sitting on side of bed Upper Extremity: Mod (A) with decreased (R) UE ROM Lower Extremity: Max (A) don and doffing (B) socks ROM: RUE Shoulder flexion he was unable to perform, Passively to about 80*, elbow NT, decreased hand/digit ROM L UE Shoulder flexion ~30*, elbow flexion WFL with hard end feel for PROM STRENGTH: RUE Unable to test shoulder flexion or elbow throughout, 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 Patient was seen for 2 skilled OT sessions. He is overall generally weak in his (R) UE at this time. His (B) UE ROM has declined since last admission. Pt is able to wash his face but is very functionally limited at this time. He notes that overall he is feeling better. GOALS 1. Transfers [facility], [facility]- Met 2. Dressing: Sitting on side of bed, pt will be able to put (B) UE into the hospital gown mod (A) with min verbal cues. (Not met) 3. Bathing: Sitting on side of bed pt will be able to wash face, (B) UE and abdomen min (A) and upper legs with min verbal cues. (Not met) PLAN OF CARE/TREATMENT PLAN: Discharge pt from skilled OT services. Pt to return to [facility] today. DISCHARGE RECOMMENDATIONS Return to [facility] when medically cleared per MD. TREATMENT TIME/MINUTES/CODES N/A Suzanne Javier OTR/L [facility]
--- NOTE | 2018-07-23 13:57 | OTDS_ITS ---
Date of service: 07/23/18 Time of Service: 13:52 Occupational Therapy Notes Occupational Therapy Inpatient Discharge Summary Date: 07/23/18 Dates of Service: 07/21/18-07/23/18 Referring Doctor:Ariel Bravo MD OT Orders: (R) elbow septic arthritis, (R) hand/arm weakness post-op Precautions: Fall Risk, Contact PATIENT PROFILE/ADMITTING DIAGNOSIS: Pt is a 58 year old male who has been admitted multiple times to [facility] from [facility] He was admitted Swing bed rehabilitation for right elbow Septic Arthritis with concurrent MRSA Bacteremia pending re-admission to [facility]. 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) Palliative care encounter (Acute) Pulmonary hypertension (Chronic) Toxic metabolic encephalopathy (Resolved) Advance directive on file (Chronic) Chronic cholecystitis (Chronic) 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 2 diabetes mellitus (Ruled-out) HCAP (healthcare-associated pneumonia) (Resolved) MRSA bacteremia (Acute) Ambulatory dysfunction (Chronic) Diabetic foot ulcer (Chronic) Poorly controlled type 2 diabetes mellitus with circulatory disorder (Chronic) Adrenal insufficiency (Chronic) CKD (chronic kidney disease) (Chronic) Cardiopulmonary arrest with successful resuscitation (Resolved) Heme positive stool (Chronic) Sepsis (Resolved) Pedal edema (Chronic) Chronic insomnia (Chronic) Hypertension (Chronic) Chronic pain (Chronic) Hypothyroidism (Chronic) Obesity (Chronic) Back pain (Chronic 06/21/13) Inability to get out of bed (Chronic 06/21/13) Poor self care (Chronic 06/21/13) Chronic bipolar disorder (Chronic) CAD (coronary artery disease) (Chronic) Dyslipidemia (Chronic) Rheumatoid arthritis (Chronic) Osteoarthritis of both knees (Chronic) Cholelithiasis (Chronic) Impaired mobility and ADLs (Chronic) Hemorrhagic cystitis (Inactive) Anemia (Chronic) Chronic anxiety (Chronic) Ulcerative colitis (Chronic) Surgical History History of insertion of T-tube into biliary tract (Chronic) S/P colectomy (Chronic) Arthroplasty of knee (Resolved 03/18/12) Fracture, Open Treatment (Resolved) Current Functional Limitations: Decreased functional activity tolerance, decreased (I) in ADLs, decreased (B) UE ROM, increased pain in (R) UE decreasing gross and fine motor coordination during ADLs. Social History/Home Situation: Pt resides at [facility]. Pt is well known to OT. He states that he had surgery on his (R) UE to remove a metal plate in his (R) elbow. He notes that he has not had PT/OT since surgery and is lacking ROM in his (R) UE and has extreme weakness limiting his (I) in ADLs/IADLs. Equipment owned/DME: [facility]WW which he uses for ambulation, he is a resident of SNF so all other DME are met through the facility. This document serves as a summary of care, no skilled OT services provided for this documentation. SUBJECTIVE: NT OBJECTIVE: Dates of Service: 07/21/18-07/23/18 BATHING: Lying in bed with max (A) set up Upper Body: (I) lower face and (L) hand, max (A) upper face, back, underarms (B), abdomen Lower Body: Max (A) DRESSING: Sitting on side of bed Upper Extremity: Mod (A) with decreased (R) UE ROM Lower Extremity: Max (A) don and doffing (B) socks ROM: RUE Shoulder flexion he was unable to perform, Passively to about 80*, elbow NT, decreased hand/digit ROM L UE Shoulder flexion ~30*, elbow flexion WFL with hard end feel for PROM STRENGTH: RUE Unable to test shoulder flexion or elbow throughout, supervisor laboratory is weak and symmetrical LUE modified testing shoulder/elbow pt is 3-/5 throughout supervisor laboratory is weak and symmetrical BALANCE: Static sitting normal Dynamic Sitting good Static Standing Fair Dynamic Standing Fair ASSESSMENT: Patient is a 58-year-old male referred to occupational therapy services after being admitted Swing bed rehabilitation for right elbow Septic Arthritis with concurrent MRSA Bacteremia pending re-admission to [facility]. Patient was seen for 2 skilled OT sessions. He is overall generally weak in his (R) UE at this time. His (B) UE ROM has declined since last admission. Pt is able to wash his face but is very functionally limited at this time. He notes that overall he is feeling better. GOALS 1. Transfers CGA, FWW- Met 2. Dressing: Sitting on side of bed, pt will be able to put (B) UE into the hospital gown mod (A) with min verbal cues. (Not met) 3. Bathing: Sitting on side of bed pt will be able to wash face, (B) UE and abdomen min (A) and upper legs with min verbal cues. (Not met) PLAN OF CARE/TREATMENT PLAN: Discharge pt from skilled OT services. Pt to return to [facility] today. DISCHARGE RECOMMENDATIONS Return to [facility] when medically cleared per MD. TREATMENT TIME/MINUTES/CODES N/A Suzanne Javier OTR/L [facility]
[2018-07-23 14:00] VITALS: BP 141/74; PULSE 64
== END 2018-07-23 15:01 | disposition skilled nursing facility (03) | DRG 549 ==
PROVIDERS: Admitting Provider Internal Medicine; PCP Family Medicine; Visit Provider Internal Medicine
DX: M00.9 Pyogenic arthritis, unspecified (principal); R78.81 Bacteremia; I48.92 Unspecified atrial flutter; E27.3 Drug-induced adrenocortical insufficiency; B95.62 Methicillin resistant Staphylococcus aureus infection as the cause of diseases classified elsewhere; N18.9 Chronic kidney disease, unspecified; E11.22 Type 2 diabetes mellitus with diabetic chronic kidney disease; D64.9 Anemia, unspecified; E03.9 Hypothyroidism, unspecified; K81.1 Chronic cholecystitis; T38.0X5A Adverse effect of glucocorticoids and synthetic analogues, initial encounter; Z75.1 Person awaiting admission to adequate facility elsewhere; Z45.2 Encounter for adjustment and management of vascular access device; Z79.4 Long term (current) use of insulin; D50.9 Iron deficiency anemia, unspecified
CPT/HCPCS: 36415; 80048; 97110; 97162; 97166; 97530; 97535; 99306; 99316; 80202; 82270; 83735; 85025; J3370; J7512

== ENCOUNTER 2018-07-27 12:33 | Outpatient (REF) | payer MEDICARE, MEDICAID, SELFPAY ==
[2018-07-27 13:03] LABS: Anion Gap 11.8 mmol/L (3-11); BUN 59 mg/dL (7-18); CO2 17.2 mmol/L (21.0-32.0); CREATININE 2.27 mg/dL (0.70-1.30); Calcium 8.6 mg/dL (8.5-10.1); Chloride 106 mmol/L (98-107); Glucose 340 mg/dL (70-100); Potassium 4.8 mmol/L (3.5-5.1); Sodium 135 mmol/L (136-145)
[2018-07-27 14:35] LABS: Vancomycin, Trough 20.5 ug/mL (10.0-20.0)
== END 2018-07-27 12:53 ==
LOC: LBO 12:33
PROVIDERS: PCP Family Medicine; Visit Provider Family Medicine
DX: N18.9 Chronic kidney disease, unspecified (principal); Z79.2 Long term (current) use of antibiotics
CPT/HCPCS: 80048; 80202

== ENCOUNTER 2018-07-31 12:54 | Outpatient (REF) | payer MEDICARE, MEDICAID, SELFPAY ==
[2018-07-31 13:47] LABS: Vancomycin, Trough 20.1 ug/mL (10.0-20.0)
== END 2018-07-31 13:14 ==
LOC: LBN 12:54
PROVIDERS: PCP Family Medicine; Visit Provider Family Medicine
DX: Z51.81 Encounter for therapeutic drug level monitoring (principal); R78.81 Bacteremia
CPT/HCPCS: 80202

== ENCOUNTER 2018-08-03 12:59 | Outpatient (REF) | payer MEDICARE, MEDICAID, SELFPAY ==
[2018-08-03 14:11] LABS: Vancomycin, Trough 18.1 ug/mL (10.0-20.0)
== END 2018-08-03 13:19 ==
LOC: LBN 12:59
PROVIDERS: PCP Family Medicine; Visit Provider Family Medicine
DX: R78.81 Bacteremia (principal); B95.62 Methicillin resistant Staphylococcus aureus infection as the cause of diseases classified elsewhere
CPT/HCPCS: 80202

== ENCOUNTER 2018-08-07 11:31 | Emergency (ER) | payer MEDICARE, MEDICAID, SELFPAY ==
[2018-08-07 11:28] VITALS: BP 127/81; PULSE 74; TEMP 36.8; O2SAT 99
[2018-08-07] MEDS: Alteplase 2 MG VIAL IJ (11:50)
--- NOTE | 2018-08-07 13:23 | W.ED.GENAD ---
Discharge Plan Disposition Patient Disposition: SNF (LEVEL 1) [facility] Condition: Stable Discharge Details Chief Complaint: GenMedical Clinical Impression: Occlusion of peripherally inserted central catheter (PICC) line Primary Care Provider: Anne Horowitz ED Provider: Manuel Lyon Home Meds and New Rx's Prescriptions: No Action loperamide 2 mg Capsule 2 mg PO QID PRNRF: 0 cyanocobalamin (vitamin B-12) 1,000 mcg Tablet 1,000 mcg PO DAILY RF: 0 folic acid 1 mg Tablet 1 mg PO DAILY RF: 0 ferrous sulfate 325 mg (65 mg iron) Tablet 325 mg PO BID Qty: 0 RF: 0 ascorbic acid (vitamin C) [Vitamin C] 250 mg Tablet 1 tab PO BID RF: 0 Centrum Complete 18-400 mg-mcg Tablet 1 tab PO DAILY RF: 0 venlafaxine 75 mg Capsule,Extended Release 24hr 75 mg PO DAILY RF: 0 acidophilus-pectin, citrus 25 million cell -100 mg Tablet 1 cap PO TID Qty: 0 RF: 0 trazodone 50 mg Tablet 50 mg PO HS Qty: 30 RF: 0 levothyroxine 25 mcg Tablet 25 mcg PO DAILY@0600 Qty: 30 RF: 0 ipratropium-albuterol 0.5 mg-3 mg(2.5 mg base)/3 mL Solution For Nebulization 3 ml UPD Q6H PRN PRNQty: 1 RF: 0 Iodosorb 0.9 % Gel topical DAILY Qty: 60 RF: 0 gabapentin 100 mg Capsule 100 mg PO TID Qty: 90 RF: 0 Santyl 250 unit/gram Ointment topical DAILY Qty: 60 RF: 0 fluticasone propionate 50 mcg/actuation [place],Suspension NS DAILY Qty: 1 RF: 0 Loan Protect Cream 1 applic topical PRN PRNQty: 60 RF: 0 Loan Protect Cream topical TID Qty: 60 RF: 0 Eliquis 5 mg Tablet 5 mg PO BID Qty: 60 RF: 0 Novolog Flexpen U-100 Insulin 100 unit/mL Insulin Pen See Rx Instructions .ROUTE .COMPLEX Qty: 15 RF: 0 levalbuterol HCl 0.63 mg/3 mL Solution For Nebulization 0.63 mg UPD Q2H PRN PRN (Reason: Dyspnea) Qty: 1 RF: 0 pantoprazole 40 mg Tablet,Delayed Release (Dr/Ec) 40 mg PO BID@0730,1999 Qty: 60 RF: 0 melatonin 3 mg Tablet Extended Release 6 mg PO HS Qty: 30 RF: 0 sodium bicarbonate 650 mg Tablet 650 mg PO TID Qty: 90 RF: 0 trimethobenzamide 300 mg Capsule 300 mg PO TID PRN PRN (Reason: Nausea) Qty: 30 RF: 0 risperidone [Risperdal] 1 mg tablet 3 mg PO HS RF: 0 calcium carbonate-vitamin D3 [Calcium 500 + D] 500 mg(1,250mg) -400 unit Tablet 1 tab PO BID RF: 0 oxycodone 5 mg capsule 5 mg PO Q8H RF: 0 Lantus Solostar U-100 Insulin 100 unit/mL (3 mL) insulin pen 60 unit subcut HS RF: 0 furosemide 40 mg Tablet 40 mg PO DAILY Qty: 0 RF: 0 prednisone 10 mg Tablet 10 mg PO DAILY Qty: 0 RF: 0 amlodipine 5 mg Tablet 5 mg PO DAILY Qty: 0 RF: 0 clonidine HCl [Catapres] 0.1 mg Tablet 0.1 mg PO TID Qty: 0 RF: 0 vancomycin 750 mg recon soln 750 mg IV DAILY Qty: 1 RF: 0 acetaminophen [Tylenol] 325 mg Tablet 325 - 650 mg PO Q4H PRN PRNQty: 0 RF: 0 terazosin 2 mg Capsule 4 mg PO BID Qty: 0 RF: 0 hydroxyzine HCl 25 mg Tablet 25 mg PO Q6H PRN PRN (Reason: Itching) Qty: 0 RF: 0 magnesium chloride [Mag 64] 64 mg Tablet,Delayed Release (Dr/Ec) 64 mg PO BID Qty: 0 RF: 0 Discharge Instructions Instructions: Peripherally Inserted Central Catheters and Midline Catheters (ED) Additional Instructions: Please flush PICC line at least every 12 hours and if needed every 8 hours with normal saline flush. Otherwise follow provided PICC line care instruction's and follow-up with medical provider as needed. Referrals: Anne Horowitz MD, [place] [Primary Care Provider] - (As needed or for any further needs) Discharge Data Discharge Date/Time-TO BE ENTERED AT DEPARTURE: 08/07/18 14:07 Medical Decision Making Patient presenting the emergency department for occluded right PICC line patient is otherwise asymptomatic and denies any other symptoms but was sent by the [facility] due to them being unable to flush the picc. staff climate scientist was able to use [facility] and able to open up PICC line and was able to draw blood that staff climate scientist was attempting to draw at nursing facility. Due to patient having no other medical complaints or issues I feel the patient is able to be safely discharged back to his facility. Given that patient does normally use [facility] and wheelchair van for transport I feel that he is more than safe to transport via this route. It is recommended that staff climate scientist flush PICC line at least twice daily with normal saline. Report of labs that were requested by facility were sent with patient but otherwise nonemergent at this time. HPI General Mode of arrival: EMS. Date/Time Provider Initiated Documentation: 08/07/18 12:31. Limitations to Documentation: no limitations. Information obtained by: patient, RN/MD and RN notes reviewed. History of Present Illness 58 year old M presents to the emergency department with the chief complaint of PICC line not working, Patient started experiencing this hour(s) (1) and it has been constant. No exacerbating factors reported . Patient notes no other symptoms.. Patient did receive the following treatments prior to arrival, none Related Data Home Medications Medication Instructions Recorded Confirmed cyanocobalamin (vitamin B-12) 1,000 mcg PO DAILY 12/23/17 07/18/18 folic acid 1 mg PO DAILY 12/23/17 07/18/18 loperamide 2 mg PO QID PRN 12/23/17 07/18/18 ferrous sulfate 325 mg PO BID #0 tab 12/31/17 07/18/18 acetaminophen [Tylenol] 325 - 650 mg PO Q4H PRN PRN #0 tab 02/10/18 07/18/18 hydroxyzine HCl 25 mg PO Q6H PRN PRN #0 tab 02/10/18 07/18/18 magnesium chloride [Mag 64] 64 mg PO BID #0 tab 02/10/18 07/18/18 terazosin 4 mg PO BID #0 cap 02/10/18 07/18/18 Centrum Complete 1 tab PO DAILY 03/01/18 07/18/18 ascorbic acid (vitamin C) [Vitamin 1 tab PO BID 03/01/18 07/18/18 C] venlafaxine 75 mg PO DAILY 03/03/18 07/18/18 acidophilus-pectin, citrus 1 cap PO TID #0 tab 03/24/18 07/18/18 trazodone 50 mg PO HS #30 tab 05/06/18 07/18/18 Loan Protect 0 g TOPICAL TID #60 g 06/19/18 07/18/18 Loan Protect 1 applic TOPICAL PRN PRN #60 g 06/19/18 07/09/18 Eliquis 5 mg PO BID #60 tab 06/19/18 07/18/18 Iodosorb 0 g TOPICAL DAILY #60 g 06/19/18 07/09/18 Novolog Flexpen U-100 Insulin See Rx Instructions .ROUTE 06/19/18 07/18/18 .COMPLEX #15 ml Santyl 0 g TOPICAL DAILY #60 g 06/19/18 07/09/18 fluticasone propionate 0 g NS DAILY #1 g 06/19/18 07/18/18 gabapentin 100 mg PO TID #90 cap 06/19/18 07/18/18 ipratropium-albuterol 3 ml UPD Q6H PRN PRN #1 startr pk 06/19/18 07/18/18 levalbuterol HCl 0.63 mg UPD Q2H PRN PRN #1 inh 06/19/18 07/18/18 levothyroxine 25 mcg PO DAILY@0600 #30 tab 06/19/18 07/18/18 melatonin 6 mg PO HS #30 tab 06/19/18 07/18/18 pantoprazole 40 mg PO BID@0730,2000 #60 tab 06/19/18 07/18/18 sodium bicarbonate 650 mg PO TID #90 tab 06/19/18 07/18/18 trimethobenzamide 300 mg PO TID PRN PRN #30 cap 06/19/18 07/18/18 risperidone [Risperdal] 3 mg PO HS 06/23/18 07/18/18 Lantus Solostar U-100 Insulin 60 unit SUBCUT HS 07/09/18 07/18/18 calcium carbonate-vitamin D3 1 tab PO BID 07/09/18 07/09/18 [Calcium 500 + D] oxycodone 5 mg PO Q8H 07/09/18 07/18/18 amlodipine 5 mg PO DAILY #0 tab 07/23/18 clonidine HCl [Catapres] 0.1 mg PO TID #0 tab 07/23/18 furosemide 40 mg PO DAILY #0 tab 07/23/18 prednisone 10 mg PO DAILY #0 tab 07/23/18 vancomycin 750 mg IV DAILY #1 each 07/23/18 Previous Rx's Medication Instructions Recorded ferrous sulfate 325 mg PO BID #0 tab 12/31/17 acetaminophen [Tylenol] 325 - 650 mg PO Q4H PRN PRN #0 tab 02/10/18 hydroxyzine HCl 25 mg PO Q6H PRN PRN #0 tab 02/10/18 magnesium chloride [Mag 64] 64 mg PO BID #0 tab 02/10/18 terazosin 4 mg PO BID #0 cap 02/10/18 acidophilus-pectin, citrus 1 cap PO TID #0 tab 03/24/18 trazodone 50 mg PO HS #30 tab 05/06/18 Loan Protect 0 g TOPICAL TID #60 g 06/19/18 Loan Protect 1 applic TOPICAL PRN PRN #60 g 06/19/18 Eliquis 5 mg PO BID #60 tab 06/19/18 Iodosorb 0 g TOPICAL DAILY #60 g 06/19/18 Novolog Flexpen U-100 Insulin See Rx Instructions .ROUTE 06/19/18 .COMPLEX #15 ml Santyl 0 g TOPICAL DAILY #60 g 06/19/18 fluticasone propionate 0 g NS DAILY #1 g 06/19/18 gabapentin 100 mg PO TID #90 cap 06/19/18 ipratropium-albuterol 3 ml UPD Q6H PRN PRN #1 startr pk 06/19/18 levalbuterol HCl 0.63 mg UPD Q2H PRN PRN #1 inh 06/19/18 levothyroxine 25 mcg PO DAILY@0600 #30 tab 06/19/18 melatonin 6 mg PO HS #30 tab 06/19/18 pantoprazole 40 mg PO BID@0730,2000 #60 tab 06/19/18 sodium bicarbonate 650 mg PO TID #90 tab 06/19/18 trimethobenzamide 300 mg PO TID PRN PRN #30 cap 06/19/18 amlodipine 5 mg PO DAILY #0 tab 07/23/18 clonidine HCl [Catapres] 0.1 mg PO TID #0 tab 07/23/18 furosemide 40 mg PO DAILY #0 tab 07/23/18 prednisone 10 mg PO DAILY #0 tab 07/23/18 vancomycin 750 mg IV DAILY #1 each 07/23/18 Allergies Allergy/AdvReac Type Severity Reaction Status Date / Time No Known Allergies Allergy Verified 07/09/18 09:05 General Stated Complaint: GenMedical YVES: 3 Review of Systems Constitutional Denies chills and Denies fever(s) Cardiovascular Denies chest pain and Denies dyspnea Respiratory Denies cough and Denies dyspnea Integumentary/Breasts Denies erythema [facility] Medical History Diabetes mellitus (Chronic) 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) Atrial flutter, paroxysmal (Chronic) Palliative care encounter (Chronic) Pulmonary hypertension (Chronic) Chronic cholecystitis (Chronic) MRSA bacteremia (Acute) Hypomagnesemia (Chronic) Ambulatory dysfunction (Chronic) Diabetic foot ulcer (Chronic) Poorly controlled type 2 diabetes mellitus with circulatory disorder (Chronic) Adrenal insufficiency (Chronic) CKD (chronic kidney disease) (Chronic) Cardiopulmonary arrest with successful resuscitation (Resolved) Heme positive stool (Chronic) Sepsis (Resolved) Pedal edema (Chronic) Chronic insomnia (Chronic) Hypertension (Chronic) Chronic pain (Chronic) Hypothyroidism (Chronic) Obesity (Chronic) Back pain (Chronic 06/21/13) Inability to get out of bed (Chronic 06/21/13) Poor self care (Chronic 06/21/13) Chronic bipolar disorder (Chronic) CAD (coronary artery disease) (Chronic) Dyslipidemia (Chronic) Rheumatoid arthritis (Chronic) Osteoarthritis of both knees (Chronic) Cholelithiasis (Chronic) Impaired mobility and ADLs (Chronic) Hemorrhagic cystitis (Chronic) Anemia (Chronic) Chronic anxiety (Chronic) Ulcerative colitis (Chronic) Surgical History History of insertion of T-tube into biliary tract (Chronic) S/P colectomy (Chronic) Arthroplasty of knee (Resolved 03/18/12) Fracture, Open Treatment (Resolved) Social History Smoking/Tobacco Use Status: Former Tobacco Use Alcohol Intake: former Drug use: Rarely Substance use type: marijuana Housing: [facility] Do you feel safe at home: Yes Exam Const General: cooperative, comfortable and no acute distress Orientation: alert and awake Extrem Left upper extremity: shoulder/upper arm Details: other (PICC line in place to left brachial with no abnormalities); no tenderness and no ecchymosis Course Vital Signs Temperature 36.8 C 08/07/18 11:28 Pulse 74 08/07/18 11:28 Blood Pressure 127/81 08/07/18 11:28 Pulse Oximetry 99 08/07/18 11:28 Temperature 36.8 C 08/07/18 11:28 Temperature Source Temporal Artery Scan 08/07/18 11:28 Pulse 74 08/07/18 11:28 Blood Pressure 127/81 08/07/18 11:28 Blood Pressure Position Sitting 08/07/18 11:28 Pulse Oximetry 99 08/07/18 11:28 Oxygen Delivery Method Room Air 08/07/18 11:28 Oxygen Flow Rate 0 08/07/18 11:28 Pain Level 5 08/07/18 11:28
[2018-08-07 13:26] LABS: Anion Gap 11.5 mmol/L (3-11); BUN 52 mg/dL (7-18); CO2 18.5 mmol/L (21.0-32.0); Calcium 8.9 mg/dL (8.5-10.1); Chloride 106 mmol/L (98-107); Estimated GFR 30.79 (mL/min/1.73m2); Glucose 294 mg/dL (70-100); Potassium 4.2 mmol/L (3.5-5.1); Sodium 136 mmol/L (136-145)
--- NOTE | 2018-08-07 13:27 | ED.GENADUL_ITS ---
Discharge Plan Disposition Patient Disposition: SNF (LEVEL 1) [facility] Condition: Stable Discharge Details Chief Complaint: GenMedical Clinical Impression: Occlusion of peripherally inserted central catheter (PICC) line Primary Care Provider: Anne Horowitz ED Provider: Manuel Lyno Home Meds and New Rx's Prescriptions: No Action loperamide 2 mg Capsule 2 mg PO QID PRNRF: 0 cyanocobalamin (vitamin B-12) 1,000 mcg Tablet 1,000 mcg PO DAILY RF: 0 folic acid 1 mg Tablet 1 mg PO DAILY RF: 0 ferrous sulfate 325 mg (65 mg iron) Tablet 325 mg PO BID Qty: 0 RF: 0 ascorbic acid (vitamin C) [Vitamin C] 250 mg Tablet 1 tab PO BID RF: 0 Centrum Complete 18-400 mg-mcg Tablet 1 tab PO DAILY RF: 0 venlafaxine 75 mg Capsule,Extended Release 24hr 75 mg PO DAILY RF: 0 acidophilus-pectin, citrus 25 million cell -100 mg Tablet 1 cap PO TID Qty: 0 RF: 0 trazodone 50 mg Tablet 50 mg PO HS Qty: 30 RF: 0 levothyroxine 25 mcg Tablet 25 mcg PO DAILY@0600 Qty: 30 RF: 0 ipratropium-albuterol 0.5 mg-3 mg(2.5 mg base)/3 mL Solution For Nebulization 3 ml UPD Q6H PRN PRNQty: 1 RF: 0 Iodosorb 0.9 % Gel topical DAILY Qty: 60 RF: 0 gabapentin 100 mg Capsule 100 mg PO TID Qty: 90 RF: 0 Santyl 250 unit/gram Ointment topical DAILY Qty: 60 RF: 0 fluticasone propionate 50 mcg/actuation [place],Suspension NS DAILY Qty: 1 RF: 0 Loan Protect Cream 1 applic topical PRN PRNQty: 60 RF: 0 Loan Protect Cream topical TID Qty: 60 RF: 0 Eliquis 5 mg Tablet 5 mg PO BID Qty: 60 RF: 0 Novolog Flexpen U-100 Insulin 100 unit/mL Insulin Pen See Rx Instructions .ROUTE .COMPLEX Qty: 15 RF: 0 levalbuterol HCl 0.63 mg/3 mL Solution For Nebulization 0.63 mg UPD Q2H PRN PRN (Reason: Dyspnea) Qty: 1 RF: 0 pantoprazole 40 mg Tablet,Delayed Release (Dr/Ec) 40 mg PO BID@0730,1999 Qty: 60 RF: 0 melatonin 3 mg Tablet Extended Release 6 mg PO HS Qty: 30 RF: 0 sodium bicarbonate 650 mg Tablet 650 mg PO TID Qty: 90 RF: 0 trimethobenzamide 300 mg Capsule 300 mg PO TID PRN PRN (Reason: Nausea) Qty: 30 RF: 0 risperidone [Risperdal] 1 mg tablet 3 mg PO HS RF: 0 calcium carbonate-vitamin D3 [Calcium 500 + D] 500 mg(1,250mg) -400 unit Tablet 1 tab PO BID RF: 0 oxycodone 5 mg capsule 5 mg PO Q8H RF: 0 Lantus Solostar U-100 Insulin 100 unit/mL (3 mL) insulin pen 60 unit subcut HS RF: 0 furosemide 40 mg Tablet 40 mg PO DAILY Qty: 0 RF: 0 prednisone 10 mg Tablet 10 mg PO DAILY Qty: 0 RF: 0 amlodipine 5 mg Tablet 5 mg PO DAILY Qty: 0 RF: 0 clonidine HCl [Catapres] 0.1 mg Tablet 0.1 mg PO TID Qty: 0 RF: 0 vancomycin 750 mg recon soln 750 mg IV DAILY Qty: 1 RF: 0 acetaminophen [Tylenol] 325 mg Tablet 325 - 650 mg PO Q4H PRN PRNQty: 0 RF: 0 terazosin 2 mg Capsule 4 mg PO BID Qty: 0 RF: 0 hydroxyzine HCl 25 mg Tablet 25 mg PO Q6H PRN PRN (Reason: Itching) Qty: 0 RF: 0 magnesium chloride [Mag 64] 64 mg Tablet,Delayed Release (Dr/Ec) 64 mg PO BID Qty: 0 RF: 0 Discharge Instructions Instructions: Peripherally Inserted Central Catheters and Midline Catheters (ED) Additional Instructions: Please flush PICC line at least every 12 hours and if needed every 8 hours with normal saline flush. Otherwise follow provided PICC line care instruction's and follow-up with medical provider as needed. Referrals: Anne Horowitz MD, [place] [Primary Care Provider] - (As needed or for any further needs) Discharge Data Discharge Date/Time-TO BE ENTERED AT DEPARTURE: 08/07/18 14:07 Medical Decision Making Patient presenting the emergency department for occluded right PICC line patient is otherwise asymptomatic and denies any other symptoms but was sent by the [facility] due to them being unable to flush the picc. cleaning staff supervisor was able to use [facility] and able to open up PICC line and was able to draw blood that cleaning staff supervisor was attempting to draw at nursing facility. Due to patient having no other medical complaints or issues I feel the patient is able to be safely discharged back to his facility. Given that patient does normally use [facility] and wheelchair van for transport I feel that he is more than safe to transport via this route. It is recommended that cleaning staff supervisor flush PICC line at least twice daily with normal saline. Report of labs that were requested by facility were sent with patient but otherwise nonemergent at this time. HPI General Mode of arrival: EMS . Date/Time Provider Initiated Documentation: 08/07/18 12:31 . Limitations to Documentation: no limitations . Information obtained by: patient, RN/MD and RN notes reviewed . History of Present Illness 58 year old M presents to the emergency department with the chief complaint of PICC line not working, Patient started experiencing this hour(s) (1) and it has been constant. No exacerbating factors reported . Patient notes no other symptoms.. Patient did receive the following treatments prior to arrival, none Related Data Home Medications Medication Instructions Recorded Confirmed cyanocobalamin (vitamin B-12) 1,000 mcg PO DAILY 12/23/17 07/18/18 folic acid 1 mg PO DAILY 12/23/17 07/18/18 loperamide 2 mg PO QID PRN 12/23/17 07/18/18 ferrous sulfate 325 mg PO BID #0 tab 12/31/17 07/18/18 acetaminophen [Tylenol] 325 - 650 mg PO Q4H PRN PRN #0 tab 02/10/18 07/18/18 hydroxyzine HCl 25 mg PO Q6H PRN PRN #0 tab 02/10/18 07/18/18 magnesium chloride [Mag 64] 64 mg PO BID #0 tab 02/10/18 07/18/18 terazosin 4 mg PO BID #0 cap 02/10/18 07/18/18 Centrum Complete 1 tab PO DAILY 03/01/18 07/18/18 ascorbic acid (vitamin C) [Vitamin 1 tab PO BID 03/01/18 07/18/18 C] venlafaxine 75 mg PO DAILY 03/03/18 07/18/18 acidophilus-pectin, citrus 1 cap PO TID #0 tab 03/24/18 07/18/18 trazodone 50 mg PO HS #30 tab 05/06/18 07/18/18 Loan Protect 0 g TOPICAL TID #60 g 06/19/18 07/18/18 Loan Protect 1 applic TOPICAL PRN PRN #60 g 06/19/18 07/09/18 Eliquis 5 mg PO BID #60 tab 06/19/18 07/18/18 Iodosorb 0 g TOPICAL DAILY #60 g 06/19/18 07/09/18 Novolog Flexpen U-100 Insulin See Rx Instructions .ROUTE 06/19/18 07/18/18 .COMPLEX #15 ml Santyl 0 g TOPICAL DAILY #60 g 06/19/18 07/09/18 fluticasone propionate 0 g NS DAILY #1 g 06/19/18 07/18/18 gabapentin 100 mg PO TID #90 cap 06/19/18 07/18/18 ipratropium-albuterol 3 ml UPD Q6H PRN PRN #1 startr pk 06/19/18 07/18/18 levalbuterol HCl 0.63 mg UPD Q2H PRN PRN #1 inh 06/19/18 07/18/18 levothyroxine 25 mcg PO DAILY@0600 #30 tab 06/19/18 07/18/18 melatonin 6 mg PO HS #30 tab 06/19/18 07/18/18 pantoprazole 40 mg PO BID@0730,2000 #60 tab 06/19/18 07/18/18 sodium bicarbonate 650 mg PO TID #90 tab 06/19/18 07/18/18 trimethobenzamide 300 mg PO TID PRN PRN #30 cap 06/19/18 07/18/18 risperidone [Risperdal] 3 mg PO HS 06/23/18 07/18/18 Lantus Solostar U-100 Insulin 60 unit SUBCUT HS 07/09/18 07/18/18 calcium carbonate-vitamin D3 1 tab PO BID 07/09/18 07/09/18 [Calcium 500 + D] oxycodone 5 mg PO Q8H 07/09/18 07/18/18 amlodipine 5 mg PO DAILY #0 tab 07/23/18 clonidine HCl [Catapres] 0.1 mg PO TID #0 tab 07/23/18 furosemide 40 mg PO DAILY #0 tab 07/23/18 prednisone 10 mg PO DAILY #0 tab 07/23/18 vancomycin 750 mg IV DAILY #1 each 07/23/18 Previous Rx's Medication Instructions Recorded ferrous sulfate 325 mg PO BID #0 tab 12/31/17 acetaminophen [Tylenol] 325 - 650 mg PO Q4H PRN PRN #0 tab 02/10/18 hydroxyzine HCl 25 mg PO Q6H PRN PRN #0 tab 02/10/18 magnesium chloride [Mag 64] 64 mg PO BID #0 tab 02/10/18 terazosin 4 mg PO BID #0 cap 02/10/18 acidophilus-pectin, citrus 1 cap PO TID #0 tab 03/24/18 trazodone 50 mg PO HS #30 tab 05/06/18 Loan Protect 0 g TOPICAL TID #60 g 06/19/18 Loan Protect 1 applic TOPICAL PRN PRN #60 g 06/19/18 Eliquis 5 mg PO BID #60 tab 06/19/18 Iodosorb 0 g TOPICAL DAILY #60 g 06/19/18 Novolog Flexpen U-100 Insulin See Rx Instructions .ROUTE 06/19/18 .COMPLEX #15 ml Santyl 0 g TOPICAL DAILY #60 g 06/19/18 fluticasone propionate 0 g NS DAILY #1 g 06/19/18 gabapentin 100 mg PO TID #90 cap 06/19/18 ipratropium-albuterol 3 ml UPD Q6H PRN PRN #1 startr pk 06/19/18 levalbuterol HCl 0.63 mg UPD Q2H PRN PRN #1 inh 06/19/18 levothyroxine 25 mcg PO DAILY@0600 #30 tab 06/19/18 melatonin 6 mg PO HS #30 tab 06/19/18 pantoprazole 40 mg PO BID@0730,2000 #60 tab 06/19/18 sodium bicarbonate 650 mg PO TID #90 tab 06/19/18 trimethobenzamide 300 mg PO TID PRN PRN #30 cap 06/19/18 amlodipine 5 mg PO DAILY #0 tab 07/23/18 clonidine HCl [Catapres] 0.1 mg PO TID #0 tab 07/23/18 furosemide 40 mg PO DAILY #0 tab 07/23/18 prednisone 10 mg PO DAILY #0 tab 07/23/18 vancomycin 750 mg IV DAILY #1 each 07/23/18 Allergies Allergy/AdvReac Type Severity Reaction Status Date / Time No Known Allergies Allergy Verified 07/09/18 09:05 General Stated Complaint: GenMedical YVES: 3 Review of Systems Constitutional Denies chills and Denies fever(s) Cardiovascular Denies chest pain and Denies dyspnea Respiratory Denies cough and Denies dyspnea Integumentary/Breasts Denies erythema [facility] Medical History Diabetes mellitus (Chronic) 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) Atrial flutter, paroxysmal (Chronic) Palliative care encounter (Chronic) Pulmonary hypertension (Chronic) Chronic cholecystitis (Chronic) MRSA bacteremia (Acute) Hypomagnesemia (Chronic) Ambulatory dysfunction (Chronic) Diabetic foot ulcer (Chronic) Poorly controlled type 2 diabetes mellitus with circulatory disorder (Chronic) Adrenal insufficiency (Chronic) CKD (chronic kidney disease) (Chronic) Cardiopulmonary arrest with successful resuscitation (Resolved) Heme positive stool (Chronic) Sepsis (Resolved) Pedal edema (Chronic) Chronic insomnia (Chronic) Hypertension (Chronic) Chronic pain (Chronic) Hypothyroidism (Chronic) Obesity (Chronic) Back pain (Chronic 06/21/13) Inability to get out of bed (Chronic 06/21/13) Poor self care (Chronic 06/21/13) Chronic bipolar disorder (Chronic) CAD (coronary artery disease) (Chronic) Dyslipidemia (Chronic) Rheumatoid arthritis (Chronic) Osteoarthritis of both knees (Chronic) Cholelithiasis (Chronic) Impaired mobility and ADLs (Chronic) Hemorrhagic cystitis (Chronic) Anemia (Chronic) Chronic anxiety (Chronic) Ulcerative colitis (Chronic) Surgical History History of insertion of T-tube into biliary tract (Chronic) S/P colectomy (Chronic) Arthroplasty of knee (Resolved 03/18/12) Fracture, Open Treatment (Resolved) Social History Smoking/Tobacco Use Status: Former Tobacco Use Alcohol Intake: former Drug use: Rarely Substance use type: marijuana Housing: [facility] Do you feel safe at home: Yes Exam Const General: cooperative, comfortable and no acute distress Orientation: alert and awake Extrem Left upper extremity: shoulder/upper arm Details: other (PICC line in place to left brachial with no abnormalities); no tenderness and no ecchymosis Course Vital Signs Temperature 36.8 C 08/07/18 11:28 Pulse 74 08/07/18 11:28 Blood Pressure 127/81 08/07/18 11:28 Pulse Oximetry 99 08/07/18 11:28 Temperature 36.8 C 08/07/18 11:28 Temperature Source Temporal Artery Scan 08/07/18 11:28 Pulse 74 08/07/18 11:28 Blood Pressure 127/81 08/07/18 11:28 Blood Pressure Position Sitting 08/07/18 11:28 Pulse Oximetry 99 08/07/18 11:28 Oxygen Delivery Method Room Air 08/07/18 11:28 Oxygen Flow Rate 0 08/07/18 11:28 Pain Level 5 08/07/18 11:28
[2018-08-07 14:12] VITALS: BP 127/81; PULSE 74; RESP 18; TEMP 36.8; O2SAT 99
--- NOTE | 2018-08-07 14:14 | NUR.NOTE ---
Nursing Note: Picc line dressing was changed using sterile technique.
== END 2018-08-07 14:07 | disposition skilled nursing facility (03) ==
PROVIDERS: Emergency Provider Nurse Practitioner Family; PCP Family Medicine
DX: T82.898A Other specified complication of vascular prosthetic devices, implants and grafts, initial encounter (principal)
CPT/HCPCS: 36415; 80048; 99283; J2997

== ENCOUNTER 2018-08-10 15:52 | Outpatient (REF) | payer MEDICARE, MEDICAID, SELFPAY ==
[2018-08-10 12:05] LABS: Vancomycin, Trough 17.9 ug/mL (10.0-20.0)
== END 2018-08-10 16:12 ==
LOC: LBN 15:52
PROVIDERS: PCP Family Medicine; Visit Provider Family Medicine
DX: N18.9 Chronic kidney disease, unspecified (principal); Z79.2 Long term (current) use of antibiotics
CPT/HCPCS: 80202

== ENCOUNTER 2018-08-17 11:22 | Outpatient (REF) | payer MEDICARE, MEDICAID, SELFPAY ==
[2018-08-17 15:30] LABS: Vancomycin, Trough 14.6 ug/mL (10.0-20.0)
== END 2018-08-17 11:42 ==
LOC: LBN 11:22
PROVIDERS: Visit Provider Family Medicine
DX: N18.9 Chronic kidney disease, unspecified (principal); Z79.2 Long term (current) use of antibiotics
CPT/HCPCS: 80202

== ENCOUNTER 2018-08-31 00:55 | Outpatient (CLI) | payer MEDICARE, MEDICAID, SELFPAY ==
--- NOTE | 2018-08-31 11:41 | DI.RAD_ITS ---
SYMPTOM/DIAGNOSIS: OSTEOMYELITIS LT 2ND METATARSAL HEAD, F/U LEFT FOOT: 08/31/18 The patient reportedly has a history of prior osteomyelitis of the 2nd metatarsal head. No previous radiographs of the left foot are available for comparison. There is diffuse demineralization of the bones of the foot. There is an apparent prior partial resection of the distal 5th metatarsal. No gross erosive or destructive lesion seen involving the bones of the foot on today's examination. Marked hallux valgus deformity noted and there are subluxations at the 2nd through 4th MTP joints. CONCLUSION: No gross radiographic evidence of osteomyelitis.
== END 2018-08-31 01:15 ==
PROVIDERS: Visit Provider Podiatrist
DX: M85.872 Other specified disorders of bone density and structure, left ankle and foot (principal); M20.12 Hallux valgus (acquired), left foot
CPT/HCPCS: 73630

== ENCOUNTER 2018-09-24 13:46 | Outpatient (REF) | payer MEDICARE, MEDICAID, SELFPAY ==
[2018-09-24 14:36] LABS: Hemoglobin A1C 8.8 % (4.5-6.2)
== END 2018-09-24 14:06 ==
LOC: LBN 13:46
PROVIDERS: Visit Provider Family Medicine
DX: E11.40 Type 2 diabetes mellitus with diabetic neuropathy, unspecified (principal)
CPT/HCPCS: 83036

== ENCOUNTER 2018-10-23 15:21 | Inpatient (IN) | payer MEDICARE, MEDICAID, SELFPAY ==
[2018-10-23] VITALS (18 sets, daily range): BP systolic 37–143; BP diastolic 10–83; PULSE 52–120; RESP 13–21; TEMP 36.6–37.6; O2SAT 96–100
--- NOTE | 2018-10-23 15:30 | DI.RAD_ITS ---
SYMPTOM/DIAGNOSIS: FEVER, UNKNOWN SOURCE AP PORTABLE CHEST: Comparison is made with 09 Jul 2018. The heart size is within normal limits. The lungs are suboptimally inflated. Leads overlie the chest. The left diaphragm is again noted to be mildly elevated. There are calcified mediastinal and hilar lymph nodes consistent with old granulomatous disease. IMPRESSION: No acute abnormality.
[2018-10-23] MEDS: Normal Saline 500 ML 1000 ML IV (15:49)
[2018-10-23] MEDS: Acetaminophen 500 MG TAB 1000 MG PO (15:49)
[2018-10-23 15:51] LABS: Abs Immature Grans 0.06 k/cumm (0.0-0.09); Absolute Lymphocyte Count 0.76 k/cumm (1.2-3.4); Absolute Monocyte Count 0.45 k/cumm (0.11-0.7); Basophils % 0.2; Eosinophils % 2.7; HCT 35.8 % (40.0-50.0); HGB 11.8 g/dL (13.5-17.5); Immature Grans % 0.5; Lymphocytes % 6.3; Mean Corpuscular Hemoglobin 23.3 pg (27.0-33.0); Mean Corpuscular Volume 70.6 fL (80-95); Mean Platelet Volume 10.2 fL (8.0-11.0); Monocytes % 3.7; Neutrophils % 86.6; Platelet Count 391 x1000/uL (130-400); RBC 5.07 m/cumm (4.50-6.00); RBC Distribution Width 17.2 % (11.8-14.1); White Blood Cell Count 12.03 k/cumm (4.4-10.8)
[2018-10-23 15:52] LABS: Lactate 1.2 mmol/L (0.6-1.4)
[2018-10-23 15:58] LABS: Bilirubin Negative (Negative); Blood Moderate (Negative); Clarity Cloudy (Clear); Glucose Negative (Negative); Ketones Negative (Negative); Leukocyte Esterase Large (Negative); Nitrite Negative (Negative); Specific Gravity 1.015 (1.005-1.025); Urobilinogen 0.2 EU/dL (Up TO 0.2); pH 5.5 (5-8)
[2018-10-23 16:06] LABS: INR 1.1 (0.9-1.1); PTT Activated 26.6 sec (21.0-31.4); Prothrombin Time 10.5 sec (9.3-11.0)
[2018-10-23 16:08] LABS: Absolute Basophil Count 0.02 k/cumm (0.0-0.2); Absolute Eosinophil Count 0.32 k/cumm (0.0-0.7); Absolute Neutrophil Count 10.42 k/cumm (1.2-6.7)
[2018-10-23 16:09] LABS: Anisocytosis 1+; Diff Comment RBC Morph Reviewed; Microcytosis 2+; Ovalocytes 2+; Poikilocytes 2+
[2018-10-23 16:14] LABS: WBC >50 HPF (0-5)
[2018-10-23 16:15] LABS: C & S Indicated? Yes
[2018-10-23 16:20] LABS: ALT 20 U/L (16-63); AST 8 U/L (15-37); Albumin 2.6 g/dL (3.4-5.0); Alkaline Phosphatase 201 U/L (46-116); Anion Gap 12.5 mmol/L (3-11); BUN 70 mg/dL (7-18); Bilirubin, Total 0.2 mg/dL (0.2-1.0); CO2 18.5 mmol/L (21.0-32.0); CREATININE 2.91 mg/dL (0.70-1.30); Calcium 8.7 mg/dL (8.5-10.1); Chloride 103 mmol/L (98-107); Glucose 316 mg/dL (70-100); Potassium 4.1 mmol/L (3.5-5.1); Sodium 134 mmol/L (136-145); Total Protein 7.1 g/dL (6.4-8.2)
--- NOTE | 2018-10-23 16:24 | DI.VRAD_ITS ---
EXAM: XR Chest, 1 View EXAM DATE/TIME: 10/23/2018 3:31 PM CLINICAL HISTORY: 58 years old, male; Fever TECHNIQUE: Imaging protocol: XR of the chest, 1 view. COMPARISON: CR XR CHEST 2V PA LATERAL 07/09/2018 9:42 AM FINDINGS: Lungs: Unremarkable. No consolidation. Pleural space: Unremarkable. No pleural effusion. No pneumothorax. Heart/Mediastinum: Unremarkable. No cardiomegaly. Bones/joints: Unremarkable. IMPRESSION: No acute findings. Dictated and Authenticated by: Tyler Ashford MD. Ordering:ZURDO Sharpe MD
--- NOTE | 2018-10-23 17:25 | W.ED.GENAD ---
Discharge Plan Disposition Patient Disposition: [facility] INPATIENT Condition: Stable Discharge Details Chief Complaint: Fever Clinical Impression: Bacteremia, Acute UTI, Chronic foot ulcer Primary Care Provider: Anne Horowitz ED Provider: Dell Romo Home Meds and New Rx's Prescriptions: No Action loperamide 2 mg Capsule 2 mg PO QID PRNRF: 0 cyanocobalamin (vitamin B-12) 1,000 mcg Tablet 1,000 mcg PO DAILY RF: 0 folic acid 1 mg Tablet 1 mg PO DAILY RF: 0 ferrous sulfate 325 mg (65 mg iron) Tablet 325 mg PO BID Qty: 0 RF: 0 ascorbic acid (vitamin C) [Vitamin C] 250 mg Tablet 1 tab PO BID RF: 0 Centrum Complete 18-400 mg-mcg Tablet 1 tab PO DAILY RF: 0 acidophilus-pectin, citrus 25 million cell -100 mg Tablet 1 cap PO TID Qty: 0 RF: 0 trazodone 50 mg Tablet 50 mg PO HS Qty: 30 RF: 0 levothyroxine 25 mcg Tablet 25 mcg PO DAILY@0600 Qty: 30 RF: 0 ipratropium-albuterol 0.5 mg-3 mg(2.5 mg base)/3 mL Solution For Nebulization 3 ml UPD Q6H PRN PRNQty: 1 RF: 0 gabapentin 100 mg Capsule 100 mg PO TID Qty: 90 RF: 0 fluticasone propionate 50 mcg/actuation [place],Suspension 0 g NS DAILY Qty: 1 RF: 0 Eliquis 5 mg Tablet 5 mg PO BID Qty: 60 RF: 0 Novolog Flexpen U-100 Insulin 100 unit/mL Insulin Pen See Rx Instructions .ROUTE .COMPLEX Qty: 15 RF: 0 pantoprazole 40 mg Tablet,Delayed Release (Dr/Ec) 40 mg PO DAILY Qty: 60 RF: 0 melatonin 3 mg Tablet Extended Release 6 mg PO HS Qty: 30 RF: 0 sodium bicarbonate 650 mg Tablet 650 mg PO TID Qty: 90 RF: 0 trimethobenzamide 300 mg Capsule 300 mg PO TID PRN PRN (Reason: Nausea) Qty: 30 RF: 0 calcium carbonate-vitamin D3 [Calcium 500 + D] 500 mg(1,250mg) -400 unit Tablet 1 tab PO BID RF: 0 oxycodone 5 mg capsule 5 mg PO Q8H RF: 0 Lantus Solostar U-100 Insulin 100 unit/mL (3 mL) insulin pen 46 unit subcut BID RF: 0 furosemide 40 mg Tablet 40 mg PO DAILY Qty: 0 RF: 0 prednisone 10 mg Tablet 10 mg PO DAILY Qty: 0 RF: 0 amlodipine 5 mg Tablet 5 mg PO DAILY Qty: 0 RF: 0 clonidine HCl [Catapres] 0.1 mg Tablet 0.1 mg PO TID Qty: 0 RF: 0 acetaminophen [Tylenol] 325 mg Tablet 325 - 650 mg PO Q4H PRN PRNQty: 0 RF: 0 terazosin 2 mg Capsule 4 mg PO BID Qty: 0 RF: 0 hydroxyzine HCl 25 mg Tablet 25 mg PO Q6H PRN PRN (Reason: Itching) Qty: 0 RF: 0 magnesium chloride [Mag 64] 64 mg Tablet,Delayed Release (Dr/Ec) 64 mg PO BID Qty: 0 RF: 0 venlafaxine [Effexor XR] 37.5 mg Capsule,Extended Release 24hr 112.5 mg PO DAILY RF: 0 Medical Decision Making This is a pleasant 58-year-old male with multiple medical problems including adrenal insufficiency, coronary artery disease, previous cardiopulmonary arrest, previous chronic bacteremic episode secondary to infected hardware, nephrostomy tube, chronic kidney disease, who presents today for evaluation of fever over the last 24 to 48 hours. At this time there is concern for urinary etiologies. Exam demonstrates chronic wounds on his foot, no significant sacral decubitus ulcer. Lung sounds are benign. Chest x-ray negative. Vital signs stable. Urine does demonstrate notable elevation in white count in conjunction with leuk esterase, negative nitrites. Mild white count elevation at 12, moderate left shift, no bandemia. Lactate normal. Patient was mildly febrile on his arrival, and with his history of a T-max of 104 at his facility, I do feel that admission with broad-spectrum antibiotics, and waiting on blood cultures is certainly appropriate at this time. I discussed the case with Dr. Fisher, we will start the patient on cefepime and vancomycin. We will add a procalcitonin. Patient will be admitted to the floor. I have extensively reviewed the treatment plan with the patient. I have addressed all patient concerns at this time. I have also discussed the plan with the admitting physician and they agree with the current assessment and plan and have agreed to assume responsibility for the patient. All parties demonstrate verbal understanding and agreement with our assessment and plan at this time. FINDINGS: Lungs: Unremarkable. No consolidation. Pleural space: Unremarkable. No pleural effusion. No pneumothorax. Heart/Mediastinum: Unremarkable. No cardiomegaly. Bones/joints: Unremarkable. IMPRESSION: No acute findings. Thank you for allowing us to participate in the care of your patient. Dictated and Authenticated by: Tyler Ashford DO 10/23/2018 4:24 PM Eastern Time ([place] & [place]) HPI General Date/Time Provider Initiated Documentation: 10/23/18 15:29. HPI Narrative: This is a 58-year-old male with past medical history of acromegaly, adrenal insufficiency, paroxysmal A. fib letter, coronary artery disease with arrest, chronic kidney disease, diabetes, diabetic foot ulcers, who resides at the [facility], presents today for evaluation of fever. The last 24 to 48 hours nursing at the [facility] has noted evidence of fever and chills. He has known ulcers on his feet, and mild skin breakdown on his buttocks. These have been unchanged. They are currently being followed up by podiatry. Patient has had intermittent fever with a T-max of 104. Labs were sent earlier today with his return of his fever. However because of his symptoms he was sent to the ER for further evaluation. The patient is a notably poor historian, and adds nothing to the HPI. He denies any chest pain, abdominal pain, shortness of breath, chills, cough, numbness, tingling, weakness, or other complaints. No other modifying factors. Related Data Home Medications Medication Instructions Recorded Confirmed cyanocobalamin (vitamin B-12) 1,000 mcg PO DAILY 12/23/17 10/23/18 folic acid 1 mg PO DAILY 12/23/17 10/23/18 loperamide 2 mg PO QID PRN 12/23/17 10/23/18 ferrous sulfate 325 mg PO BID #0 tab 12/31/17 10/23/18 acetaminophen [Tylenol] 325 - 650 mg PO Q4H PRN PRN #0 tab 02/10/18 10/23/18 hydroxyzine HCl 25 mg PO Q6H PRN PRN #0 tab 02/10/18 10/23/18 magnesium chloride [Mag 64] 64 mg PO BID #0 tab 02/10/18 10/23/18 terazosin 4 mg PO BID #0 cap 02/10/18 10/23/18 Centrum Complete 1 tab PO DAILY 03/01/18 10/23/18 ascorbic acid (vitamin C) [Vitamin 1 tab PO BID 03/01/18 10/23/18 C] acidophilus-pectin, citrus 1 cap PO TID #0 tab 03/24/18 10/23/18 trazodone 50 mg PO HS #30 tab 05/06/18 10/23/18 Eliquis 5 mg PO BID #60 tab 06/19/18 10/23/18 Novolog Flexpen U-100 Insulin See Rx Instructions .ROUTE 06/19/18 10/23/18 .COMPLEX #15 ml fluticasone propionate 0 g NS DAILY #1 g 06/19/18 10/23/18 gabapentin 100 mg PO TID #90 cap 06/19/18 10/23/18 ipratropium-albuterol 3 ml UPD Q6H PRN PRN #1 startr pk 06/19/18 10/23/18 levothyroxine 25 mcg PO DAILY@0600 #30 tab 06/19/18 10/23/18 melatonin 6 mg PO HS #30 tab 06/19/18 10/23/18 pantoprazole 40 mg PO DAILY #60 tab 06/19/18 10/23/18 sodium bicarbonate 650 mg PO TID #90 tab 06/19/18 10/23/18 trimethobenzamide 300 mg PO TID PRN PRN #30 cap 06/19/18 10/23/18 Lantus Solostar U-100 Insulin 46 unit SUBCUT BID 07/09/18 10/23/18 calcium carbonate-vitamin D3 1 tab PO BID 07/09/18 10/23/18 [Calcium 500 + D] oxycodone 5 mg PO Q8H 07/09/18 10/23/18 amlodipine 5 mg PO DAILY #0 tab 07/23/18 10/23/18 clonidine HCl [Catapres] 0.1 mg PO TID #0 tab 07/23/18 10/23/18 furosemide 40 mg PO DAILY #0 tab 07/23/18 10/23/18 prednisone 10 mg PO DAILY #0 tab 07/23/18 10/23/18 venlafaxine [Effexor XR] 112.5 mg PO DAILY 10/23/18 10/23/18 Previous Rx's Medication Instructions Recorded ferrous sulfate 325 mg PO BID #0 tab 12/31/17 acetaminophen [Tylenol] 325 - 650 mg PO Q4H PRN PRN #0 tab 02/10/18 hydroxyzine HCl 25 mg PO Q6H PRN PRN #0 tab 02/10/18 magnesium chloride [Mag 64] 64 mg PO BID #0 tab 02/10/18 terazosin 4 mg PO BID #0 cap 02/10/18 acidophilus-pectin, citrus 1 cap PO TID #0 tab 03/24/18 trazodone 50 mg PO HS #30 tab 05/06/18 Eliquis 5 mg PO BID #60 tab 06/19/18 Novolog Flexpen U-100 Insulin See Rx Instructions .ROUTE 06/19/18 .COMPLEX #15 ml fluticasone propionate 0 g NS DAILY #1 g 06/19/18 gabapentin 100 mg PO TID #90 cap 06/19/18 ipratropium-albuterol 3 ml UPD Q6H PRN PRN #1 startr pk 06/19/18 levothyroxine 25 mcg PO DAILY@0600 #30 tab 06/19/18 melatonin 6 mg PO HS #30 tab 06/19/18 pantoprazole 40 mg PO DAILY #60 tab 06/19/18 sodium bicarbonate 650 mg PO TID #90 tab 06/19/18 trimethobenzamide 300 mg PO TID PRN PRN #30 cap 06/19/18 amlodipine 5 mg PO DAILY #0 tab 07/23/18 clonidine HCl [Catapres] 0.1 mg PO TID #0 tab 07/23/18 furosemide 40 mg PO DAILY #0 tab 07/23/18 prednisone 10 mg PO DAILY #0 tab 07/23/18 Allergies Allergy/AdvReac Type Severity Reaction Status Date / Time No Known Allergies Allergy Verified 10/23/18 15:33 General Stated Complaint: Fever YVES: 3 Review of Systems Review of Systems All systems reviewed & are unremarkable except as noted in HPI and below PFSH Medical History (Updated 10/23/18 @ 08:19 by Pablo Shen MD) Acromegaly (Chronic) Acute on chronic kidney failure (Resolved) Adrenal insufficiency (Chronic) Ambulatory dysfunction (Chronic) Anemia (Chronic) Atrial flutter, paroxysmal (Chronic) Back pain (Chronic 06/21/13) CAD (coronary artery disease) (Chronic) Cardiopulmonary arrest with successful resuscitation (Resolved) Cholelithiasis (Chronic) Chronic anxiety (Chronic) Chronic bipolar disorder (Chronic) a. With history of psychosis. Chronic cholecystitis (Chronic) Chronic insomnia (Chronic) Chronic pain (Chronic) On both Methadone and Fentanyl as well as Ultram and Naproxen. CKD (chronic kidney disease) (Chronic) Complicated UTI (urinary tract infection) (Resolved) Diabetes mellitus (Chronic) Diabetic foot ulcer (Resolved) Diabetic ulcer of toe associated with diabetes mellitus due to underlying condition, with bone involvement without evidence of necrosis (Inactive) 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 (Resolved) Dyslipidemia (Chronic) Elevated troponin I level (Resolved) Endocarditis due to Staphylococcus (Resolved) Heme positive stool (Resolved) Hemorrhagic cystitis (Chronic) Hyperkalemia (Resolved) Hypertension (Chronic) Hypomagnesemia (Chronic) Hypothyroidism (Chronic) Impaired mobility and ADLs (Chronic) Inability to get out of bed (Chronic 06/21/13) Lactic acidosis (Resolved) MRSA bacteremia (Resolved) Obesity (Chronic) a. Obesity though he has had significant weight loss since last seen. Osteoarthritis of both knees (Chronic) Severe. a. [id number] bilateral knees. 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 2 diabetes mellitus (Resolved) Palliative care encounter (Chronic) DObbertin Pedal edema (Chronic) Poor self care (Chronic 06/21/13) Poorly controlled type 2 diabetes mellitus with circulatory disorder (Chronic) Pulmonary hypertension (Chronic) Rheumatoid arthritis (Chronic) Sepsis (Resolved) Septic arthritis of elbow, right (Inactive) Toxic metabolic encephalopathy (Resolved) Toxic metabolic encephalopathy (Resolved) Ulcerative colitis (Chronic) UTI (urinary tract infection) (Resolved) UTI (urinary tract infection) due to Enterococcus (Resolved) Surgical History Arthroplasty of knee (Resolved 03/18/12) irrigation and lavage right Fracture, Open Treatment (Resolved) 06/06/17-[facility] S/P ORIF RIGHT DISTAL HUMERUS FRACTURE History of insertion of T-tube into biliary tract (Chronic) S/P colectomy (Chronic) Social History Smoking/Tobacco Use Status: Former Tobacco Use Alcohol Intake: former Drug use: Rarely Substance use type: marijuana Housing: detention Do you feel safe at home: Yes Exam Narrative Exam Narrative: 1.Const: Appears older than stated age 2.Eyes: PERRL, no conjunctival injection, and symmetrical lids. 3.ENT: Atraumatic external nose and ears. Dry MM. Neck: Symmetric, trachea midline, No thyromegaly. 4.CVS: +S1/S2, No murmurs or gallops. Peripheral pulses 2+ and equal in all extremities. Brisk capillary refill in all extremities. 5.RESP: Unlabored respiratory effort. Clear to auscultation bilaterally. No wheezes rales or rhonchi 6.GI: Soft, Nontender/Nondistended, No hepatosplenomegaly. No guarding or rebound. Colostomy is in place, ostomy site is pink, stool is brown. Right-sided nephrostomy drain demonstrates no severe redness or discharge around the site. 7.MSK: Normocephalic/Atraumatic, Extremities w/o deformity. No cyanosis or clubbing. Right foot demonstrates a single chronic diabetic ulcer. Minimal chronic drainage, no acute redness or warmth. Left foot demonstrates 3 ulcers, one on the bottom of the foot, and then one on the lateral and medial aspect. No active drainage, warmth, or acute redness. Wounds appear notably chronic in nature. Buttock shows no evidence of significant decubitus ulcer. There is a mild grade 1 decubitus ulcer that is present but does not have any tissue breakdown. 8.Skin: Warm, Dry. Please refer to musculoskeletal for further evaluation of skin. 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 Sensation grossly intact, no focal neurologic deficits. Patient appears at baseline at this time. 10.Psych: (AAO) x3. Appropriate mood and affect Course Vital Signs Pulse 62 10/23/18 15:17 Blood Pressure 127/76 10/23/18 15:17 Pulse Oximetry 98 10/23/18 15:17 Temperature 37.6 C H 10/23/18 15:23 Temperature Source Oral 10/23/18 15:23 Pulse 53 L 10/23/18 17:02 Pulse 56 L 10/23/18 17:02 Respiratory Rate 14 10/23/18 17:02 Respiratory Effort Non-Labored 10/23/18 15:29 Blood Pressure 138/70 10/23/18 17:02 Blood Pressure Mean 87 10/23/18 17:02 Blood Pressure Position Supine 10/23/18 15:23 Pulse Oximetry 100 10/23/18 17:02 Oxygen Delivery Method Room Air 10/23/18 15:23 Oxygen Flow Rate 0 10/23/18 15:23 Pain Level 0 10/23/18 15:23 Lab/Test Results Lab/Test Results: 10/23/18 13:45 Urine - Reflex from Ua Urine Culture - Pending 10/23/18 16:08 Blood Blood Culture - Pending 10/23/18 14:00 Blood Blood Culture - Pending Laboratory Tests Range/Units 10/23/18 10/23/18 10/23/18 13:45 15:42 15:42 WBC (4.4-10.8) k/cumm RBC (4.50-6.00) m/cumm Hgb (13.5-17.5) g/dL Hct (40.0-50.0) % MCV (80-95) fL MCH (27.0-33.0) pg MCHC (32.0-36.0) g/dL RDW (11.8-14.1) % Plt Count (130-400) x1000/uL MPV (8.0-11.0) fL Immature Gran % Neutrophils % Lymphocytes % Monocytes % Eosinophils % Basophils % Absolute Neutrophils (1.2-6.7) k/cumm Absolute Lymphocytes (1.2-3.4) k/cumm Absolute Monocytes (0.11-0.7) k/cumm Absolute Eosinophils (0.0-0.7) k/cumm Absolute Basophils (0.0-0.2) k/cumm Differential Comment RBC Morphology Poikilocytosis Anisocytosis Microcytosis Ovalocytes PT (9.3-11.0) sec INR (0.9-1.1) APTT (21.0-31.4) sec Sodium (136-145) mmol/L 134 L Potassium (3.5-5.1) mmol/L 4.1 Chloride (98-107) mmol/L 103 Carbon Dioxide (21.0-32.0) mmol/L 18.5 L Anion Gap (3-11) mmol/L 12.5 H BUN (7-18) mg/dL 70 H Creatinine (0.70-1.30) mg/dL 2.91 H Estimated GFR/1.73 m2 (mL/min/1.73m2) 22.30 Glucose (70-100) mg/dL 316 H Lactate (0.6-1.4) mmol/L 1.2 Calcium (8.5-10.1) mg/dL 8.7 Total Bilirubin (0.2-1.0) mg/dL 0.2 AST (15-37) U/L 8 L ALT (16-63) U/L 20 Alkaline Phosphatase (46-116) U/L 201 H Total Protein (6.4-8.2) g/dL 7.1 Albumin (3.4-5.0) g/dL 2.6 L Urine Color (Yellow) Yellow Urine Clarity (Clear) Cloudy Urine pH (5-8) 5.5 Ur Specific [place] (1.005-1.025) 1.015 Urine Protein (Negative) mg/dL 30 H Urine Ketones (Negative) mg/dL Negative Urine Blood (Negative) Moderate H Urine Nitrite (Negative) Negative Urine Bilirubin (Negative) Negative Urine Urobilinogen (Up TO 0.2) EU/dL 0.2 Ur Leukocyte Esterase (Negative) Large H Urine RBC Not Applicable Urine WBC (0-5) HPF >50 Ur Epithelial Cells Not Applicable Urine Crystals Not Applicable Urine Bacteria (Negative) HPF Urine Mucus Not Applicable Ur Culture Indicated? Yes Urine Glucose (Negative) mg/dL Negative Range/Units 10/23/18 10/23/18 15:42 15:42 WBC (4.4-10.8) k/cumm 12.03 H RBC (4.50-6.00) m/cumm 5.07 Hgb (13.5-17.5) g/dL 11.8 L Hct (40.0-50.0) % 35.8 L MCV (80-95) fL 70.6 L MCH (27.0-33.0) pg 23.3 L MCHC (32.0-36.0) g/dL 33.0 RDW (11.8-14.1) % 17.2 H Plt Count (130-400) x1000/uL 391 MPV (8.0-11.0) fL 10.2 Immature Gran % 0.5 Neutrophils % 86.6 Lymphocytes % 6.3 Monocytes % 3.7 Eosinophils % 2.7 Basophils % 0.2 Absolute Neutrophils (1.2-6.7) k/cumm 10.42 H Absolute Lymphocytes (1.2-3.4) k/cumm 0.76 L Absolute Monocytes (0.11-0.7) k/cumm 0.45 Absolute Eosinophils (0.0-0.7) k/cumm 0.32 Absolute Basophils (0.0-0.2) k/cumm 0.02 Differential Comment Rbc morph reviewed RBC Morphology See below Poikilocytosis 2+ Anisocytosis 1+ Microcytosis 2+ Ovalocytes 2+ PT (9.3-11.0) sec 10.5 INR (0.9-1.1) 1.1 APTT (21.0-31.4) sec 26.6 Sodium (136-145) mmol/L Potassium (3.5-5.1) mmol/L Chloride (98-107) mmol/L Carbon Dioxide (21.0-32.0) mmol/L Anion Gap (3-11) mmol/L BUN (7-18) mg/dL Creatinine (0.70-1.30) mg/dL Estimated GFR/1.73 m2 (mL/min/1.73m2) Glucose (70-100) mg/dL Lactate (0.6-1.4) mmol/L Calcium (8.5-10.1) mg/dL Total Bilirubin (0.2-1.0) mg/dL AST (15-37) U/L ALT (16-63) U/L Alkaline Phosphatase (46-116) U/L Total Protein (6.4-8.2) g/dL Albumin (3.4-5.0) g/dL Urine Color (Yellow) Urine Clarity (Clear) Urine pH (5-8) Ur Specific [place] (1.005-1.025) Urine Protein (Negative) mg/dL Urine Ketones (Negative) mg/dL Urine Blood (Negative) Urine Nitrite (Negative) Urine Bilirubin (Negative) Urine Urobilinogen (Up TO 0.2) EU/dL Ur Leukocyte Esterase (Negative) Urine RBC Urine WBC (0-5) HPF Ur Epithelial Cells Urine Crystals Urine Bacteria (Negative) HPF Urine Mucus Ur Culture Indicated? Urine Glucose (Negative) mg/dL
[2018-10-23] MEDS: CEFEPIME 2 GM in Normal Saline 100 ML IVPB (17:42)
--- NOTE | 2018-10-23 17:50 | NUR.NOTE ---
Nursing Note: Pt's ostomy checked for leak- air removed from pouch. Approx 50 CC stool present.
--- NOTE | 2018-10-23 17:51 | NUR.NOTE ---
Nursing Note: Dinner tray ordered. Fluids provided.
[2018-10-23] MEDS: VANCOMYCIN 2,000 MG in Normal Saline 500 ML 250 MG IVPB (18:15)
[2018-10-23 18:18] LABS: Procalcitonin 0.5 ng/mL
--- NOTE | 2018-10-23 19:22 | NUR.NOTE ---
Nursing Note: Colostomy bag changed his ostomy measures at 03/03. Sight looks good skin prep use.
[2018-10-23] MEDS: Ascorbic Acid 500 MG TAB PO (21:00)
[2018-10-23] MEDS: Apixaban 5 MG TAB PO (21:15)
[2018-10-23] MEDS: Lactobacillus Acidophilus CAP 1 CAP PO (21:15)
[2018-10-23] MEDS: Ferrous Sulfate 325 MG TAB PO (21:15)
[2018-10-23] MEDS: cloNIDine 0.1 MG TAB PO (21:15)
[2018-10-23] MEDS: Sodium Bicarbonate 650 MG TAB PO (21:16)
[2018-10-23] MEDS: Magnesium Chloride 64 MG TABCR PO (21:16)
[2018-10-23] MEDS: Insulin Glargine 300 UNITS/3 ML PEN 46 UNITS SC (22:16)
[2018-10-23] MEDS: Melatonin 3 MG TAB 6 MG PO (22:16)
[2018-10-23] MEDS: Gabapentin 100 MG CAP 200 MG PO (22:16)
[2018-10-23] MEDS: traZODone 50 MG TAB PO (22:17)
[2018-10-23 22:32] LABS: Glucose 454 mg/dL (70-100)
--- NOTE | 2018-10-23 22:46 | HPE_ITS ---
Date of service: 10/23/18 Time of Service: 22:46 Assessment and Plan (1) Complicated UTI (urinary tract infection): Current visit: No Status: Acute place ruiz for monitoring of U.O., continue iv fluid hydration while holding his diuretics; continue broad spectrum antibiotics at renal adjusted doses including vancomycin for MRSA coverage and Cefepime for gram negatives including Pseudomonas; check renal US in the a.m. (2) Acute on chronic renal insufficiency: Current visit: No Status: Acute continue iv fluid hydration; hold diuretics at this time; monitor urine output w/ ruiz catheter and daily BMP (3) Adrenal insufficiency: Current visit: No Status: Chronic patient will need stress dose hydrocortisone. I have ordered one time dose of hydrocortisone 100 mg IV now then 50 mg IV q6HR. (4) Atrial flutter, paroxysmal: Current visit: No Status: Chronic currently he sounds to be in sinus rhythm and but he will continue on his Eliquis for stroke prophylaxis. His clonidine he is chronically taking is controlling his HR as well as his BP. (5) Diabetes mellitus: Current visit: No Status: Chronic continue his regimen of Lantus as prescribed in the [place] [facility]; will add Novolog w/ CHO coverage and use high dose for coverage of elevated glucose readings. He is currently not in DKA, although he is at risk d/t his infection. I will add NPH for coverage of his stress dose hydrocortisone. The dose of NPH should be half of his hydrocortisone dose but will be given every 8hrs. 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 faecalis, chronic cholecystitis treated w/ antibiotics and pigtail catheter (not surgical candidate), Crohn's disease s/p colectomy. He resides at [facility] in [place], [place]. He was sent to the ER today d/t low grade fevers and chills over past 24 to 48 hrs. He has known chronic diabetic foot ulcers that are being followed by podiatry. urine that is suspicious for UTI (UA pyuria and hematuria). CXR was negative for infiltrates. Labs demonstrate leukocytosis of 12,000 w/ 10,400 neutrophils and stable mild anemia (Hb 11.8 GM, HCT 35%), acute kidney injury w/ worsening azotemia w/ BUN 70 and creatinine 2.91, (base 52 and 2.2), elevated glucose 316, chronically elevated alkaline phosphatase 201 w/ otherwise normal bilirubin and transaminases. Lactate is normal at 1.2. He is being admitted for complicated UTI. He was started on broad spectrum antibiotics including cefepime for coverage of gram negatives, particularly Pseudomonas given his hx of DM and recu rrent UTI's and Vancomycin was added for Staph coverage given his prior MRSA infections. Review of Systems Review of Systems Unobtainable due to mental condition [facility] Medical History (Updated 10/23/18 @ 23:54 by Manuel Fisher) Acromegaly (Chronic) Acute on chronic kidney failure (Resolved) Adrenal insufficiency (Chronic) Ambulatory dysfunction (Chronic) Anemia (Chronic) Atrial flutter, paroxysmal (Chronic) Back pain (Chronic 06/21/13) CAD (coronary artery disease) (Chronic) Cardiopulmonary arrest with successful resuscitation (Resolved) Cholelithiasis (Chronic) Chronic anxiety (Chronic) Chronic bipolar disorder (Chronic) a. With history of psychosis. Chronic cholecystitis (Chronic) Chronic insomnia (Chronic) Chronic pain (Chronic) On both Methadone and Fentanyl as well as Ultram and Naproxen. CKD (chronic kidney disease) (Chronic) Complicated UTI (urinary tract infection) (Resolved) Diabetes mellitus (Chronic) Diabetic foot ulcer (Acute) Diabetic ulcer of toe associated with diabetes mellitus due to underlying condition, with bone involvement without evidence of necrosis (Inactive) 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 (Resolved) Dyslipidemia (Chronic) Elevated troponin I level (Resolved) Endocarditis due to Staphylococcus (Resolved) Heme positive stool (Resolved) Hemorrhagic cystitis (Chronic) Hyperkalemia (Resolved) Hypertension (Chronic) Hypomagnesemia (Chronic) Hypothyroidism (Chronic) Impaired mobility and ADLs (Chronic) Inability to get out of bed (Chronic 06/21/13) Lactic acidosis (Resolved) MRSA bacteremia (Resolved) Obesity (Chronic) a. Obesity though he has had significant weight loss since last seen. Osteoarthritis of both knees (Chronic) Severe. a. [id number] bilateral knees. 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 2 diabetes mellitus (Resolved) Palliative care encounter (Chronic) DObbertin Pedal edema (Chronic) Poor self care (Chronic 06/21/13) Poorly controlled type 2 diabetes mellitus with circulatory disorder (Chronic) Pulmonary hypertension (Chronic) Rheumatoid arthritis (Chronic) Sepsis (Resolved) Septic arthritis of elbow, right (Inactive) Toxic metabolic encephalopathy (Resolved) Toxic metabolic encephalopathy (Resolved) Ulcerative colitis (Chronic) UTI (urinary tract infection) (Resolved) UTI (urinary tract infection) due to Enterococcus (Resolved) Surgical History Arthroplasty of knee (Resolved 03/18/12) irrigation and lavage right Fracture, Open Treatment (Resolved) 06/06/17-[facility] [place] S/P ORIF RIGHT DISTAL HUMERUS FRACTURE History of insertion of T-tube into biliary tract (Chronic) S/P colectomy (Chronic) Social History Smoking/Tobacco Use Status: Former Tobacco Use Alcohol Intake: former Drug use: Rarely Substance use type: marijuana Housing: [facility] Do you feel safe at home: Yes Meds Home Medications Medication Instructions Recorded Confirmed Type cyanocobalamin (vitamin B-12) 1,000 mcg PO DAILY 12/23/17 10/23/18 History folic acid 1 mg PO DAILY 12/23/17 10/23/18 History loperamide 2 mg PO QID PRN 12/23/17 10/23/18 History ferrous sulfate 325 mg PO BID #0 tab 12/31/17 10/23/18 Rx acetaminophen [Tylenol] 325 - 650 mg PO Q4H PRN PRN #0 tab 02/10/18 10/23/18 Rx hydroxyzine HCl 25 mg PO Q6H PRN PRN #0 tab 02/10/18 10/23/18 Rx magnesium chloride [Mag 64] 64 mg PO BID #0 tab 02/10/18 10/23/18 Rx terazosin 4 mg PO BID #0 cap 02/10/18 10/23/18 Rx Centrum Complete 1 tab PO DAILY 03/01/18 10/23/18 History ascorbic acid (vitamin C) [Vitamin 1 tab PO BID 03/01/18 10/23/18 History C] acidophilus-pectin, citrus 1 cap PO TID #0 tab 03/24/18 10/23/18 Rx trazodone 50 mg PO HS #30 tab 05/06/18 10/23/18 Rx Eliquis 5 mg PO BID #60 tab 06/19/18 10/23/18 Rx Novolog Flexpen U-100 Insulin See Rx Instructions .ROUTE 06/19/18 10/23/18 Rx .COMPLEX #15 ml fluticasone propionate 0 g NS DAILY #1 g 06/19/18 10/23/18 Rx gabapentin 100 mg PO TID #90 cap 06/19/18 10/23/18 Rx ipratropium-albuterol 3 ml UPD Q6H PRN PRN #1 startr pk 06/19/18 10/23/18 Rx levothyroxine 25 mcg PO DAILY@0600 #30 tab 06/19/18 10/23/18 Rx melatonin 6 mg PO HS #30 tab 06/19/18 10/23/18 Rx pantoprazole 40 mg PO DAILY #60 tab 06/19/18 10/23/18 Rx sodium bicarbonate 650 mg PO TID #90 tab 06/19/18 10/23/18 Rx trimethobenzamide 300 mg PO TID PRN PRN #30 cap 06/19/18 10/23/18 Rx Lantus Solostar U-100 Insulin 46 unit SUBCUT BID 07/09/18 10/23/18 History calcium carbonate-vitamin D3 1 tab PO BID 07/09/18 10/23/18 History [Calcium 500 + D] oxycodone 5 mg PO Q8H 07/09/18 10/23/18 History amlodipine 5 mg PO DAILY #0 tab 07/23/18 10/23/18 Rx clonidine HCl [Catapres] 0.1 mg PO TID #0 tab 07/23/18 10/23/18 Rx furosemide 40 mg PO DAILY #0 tab 07/23/18 10/23/18 Rx prednisone 10 mg PO DAILY #0 tab 07/23/18 10/23/18 Rx venlafaxine [Effexor XR] 112.5 mg PO DAILY 10/23/18 10/23/18 History Allergies Allergy/AdvReac Type Severity Reaction Status Date / Time No Known Allergies Allergy Verified 10/23/18 15:33 Exam Const General: cooperative, ill appearing chronically and lethargic Nutritional Appearance: overweight Orientation: confused Limitations: altered mental status [facility] Head: other (acromegaly) Mouth: oral mucosae normal, lip normal and tongue normal Teeth and gingiva: poor dentition (multiple missing teeth, dental caries over remaining teeth) Eyes General: appearance normal, both eyes and all related structures Alignment and Position: alignment normal Periorbital: periorbital findings normal Eyelids: eyelids normal Conjunctivae: conjunctivae normal Sclera: sclerae normal Cornea: corneas normal Pupils: PERRL EOM: EOM intact bilaterally Neck Neck: normal visual inspection, full ROM, no lymphadenopathy, no meningeal signs, trachea midline, supple and no JVD Thyroid: thyroid normal Carotids: normal carotid upstroke Lymphatic: no lymphadenopathy noted Resp Effort & Inspection: normal respiratory effort Auscultation: clear to auscultation bilaterally Cardio Jugular venous pressure: no JVD Palpation: normal PMI Rate: regular rate Rhythm: regular rhythm Heart Sounds: S1 normal, S2 normal and normal, physiologic split S2 Bruits: no abdominal aortic bruits and no carotid bruits Pulses: posterior tibial pulses present bilaterally diminished and dorsalis pedis pulses present bilaterally 2+ GI Inspection: obesity and other (biliary tube over RUQ, no drainage in bag, colostomy in RLQ w/ green stool) Palpation: soft and no hepatosplenomegaly Percussion: normal to percussion Auscultation: normal bowel sounds General: bladder normal to palpation and No CVA tenderness Back/Spine/Pelvis Back: no CVA tenderness Cervical Spine: normal cervical lordosis Thoracic/Lumbar Spine: thoracic and lumbar spine normal to inspection and No rivera rgical scar(s) present Skin Wounds: amputation site right great toe and wounds noted ulceration right lateral foot size (1 cm x 0.5 cm approx.) and open; no drainage, ulceration left plantar foot size (approx 1 x 1 cm), open and other (located between left great and 2nd toe on plantar surface); no drainage Neuro General: obtunded Cranial Nerves: PERRL, EOM intact bilaterally, no nystagmus, facial strength normal and tongue midline Cognition: abnormal cognition Motor: muscle tone normal throughout and no movement abnormalities noted Sensory Exam: lower extremity (absent light touch over both feet) Pupils: Normal pupillary reactivity/response: bilateral Extrem General: no clubbing, cyanosis or edema, no pedal edema and no calf tenderness Right lower extremity: foot Details: abnormal to inspection (ulcer over lateral right foot 1x 0.5 cm no drainage) Left lower extremity: foot (1x1 cm superficial wound on plantar surface) Psych Appearance: disheveled Mental Status: other (obtunded) Mood: other (obtunded) Results Labs : 10/24/18 07:01 10/23/18 22:15 Laboratory Results - last 24 hr 10/23/18 10/23/18 10/23/18 13:45 15:42 15:42 WBC RBC Hgb Hct MCV MCH MCHC RDW Plt Count MPV Immature Gran % Neutrophils % Lymphocytes % Monocytes % Eosinophils % Basophils % Absolute Neutrophils Absolute Lymphocytes Absolute Monocytes Absolute Eosinophils Absolute Basophils Differential Comment RBC Morphology Poikilocytosis Anisocytosis Microcytosis Ovalocytes PT INR APTT Sodium 134 L Potassium 4.1 Chloride 103 Carbon Dioxide 18.5 L Anion Gap 12.5 H BUN 70 H Creatinine 2.91 H Estimated GFR/1.73 m2 22.30 Glucose 316 H Lactate 1.2 Calcium 8.7 Total Bilirubin 0.2 AST 8 L ALT 20 Alkaline Phosphatase 201 H Total Protein 7.1 Albumin 2.6 L Procalcitonin Urine Color Yellow Urine Clarity Cloudy Urine pH 5.5 Ur Specific [place] 1.015 Urine Protein 30 H Urine Ketones Negative Urine Blood Moderate H Urine Nitrite Negative Urine Bilirubin Negative Urine Urobilinogen 0.2 Ur Leukocyte Esterase Large H Urine RBC Not Applicable Urine WBC >50 Ur Epithelial Cells Not Applicable Urine Crystals Not Applicable Urine Bacteria Urine Mucus Not Applicable Ur Culture Indicated? Yes Urine Glucose Negative 10/23/18 10/23/18 10/23/18 15:42 15:42 15:42 WBC 12.03 H RBC 5.07 Hgb 11.8 L Hct 35.8 L MCV 70.6 L MCH 23.3 L MCHC 33.0 RDW 17.2 H Plt Count 391 MPV 10.2 Immature Gran % 0.5 Neutrophils % 86.6 Lymphocytes % 6.3 Monocytes % 3.7 Eosinophils % 2.7 Basophils % 0.2 Absolute Neutrophils 10.42 H Absolute Lymphocytes 0.76 L Absolute Monocytes 0.45 Absolute Eosinophils 0.32 Absolute Basophils 0.02 Differential Comment Rbc morph reviewed RBC Morphology See below Poikilocytosis 2+ Anisocytosis 1+ Microcytosis 2+ Ovalocytes 2+ PT 10.5 INR 1.1 APTT 26.6 Sodium Potassium Chloride Carbon Dioxide Anion Gap BUN Creatinine Estimated GFR/1.73 m2 Glucose Lactate Calcium Total Bilirubin AST ALT Alkaline Phosphatase Total Protein Albumin Procalcitonin 0.5 Urine Color Urine Clarity Urine pH Ur Specific [place] Urine Protein Urine Ketones Urine Blood Urine Nitrite Urine Bilirubin Urine Urobilinogen Ur Leukocyte Esterase Urine RBC Urine WBC Ur Epithelial Cells Urine Crystals Urine Bacteria Urine Mucus Ur Culture Indicated? Urine Glucose 10/23/18 22:15 WBC RBC Hgb Hct MCV MCH MCHC RDW Plt Count MPV Immature Gran % Neutrophils % Lymphocytes % Monocytes % Eosinophils % Basophils % Absolute Neutrophils Absolute Lymphocytes Absolute Monocytes Absolute Eosinophils Absolute Basophils Differential Comment RBC Morphology Poikilocytosis Anisocytosis Microcytosis Ovalocytes PT INR APTT Sodium Potassium Chloride Carbon Dioxide Anion Gap BUN Creatinine Estimated GFR/1.73 m2 Glucose 454 H D Lactate Calcium Total Bilirubin AST ALT Alkaline Phosphatase Total Protein Albumin Procalcitonin Urine Color Urine Clarity Urine pH Ur Specific [place] Urine Protein Urine Ketones Urine Blood Urine Nitrite Urine Bilirubin Urine Urobilinogen Ur Leukocyte Esterase Urine RBC Urine WBC Ur Epithelial Cells Urine Crystals Urine Bacteria Urine Mucus Ur Culture Indicated? Urine Glucose Last Vital Signs Temp 37.6 C H 10/23/18 18:57 Pulse 112 H 10/23/18 18:57 Resp 18 10/23/18 18:57 BP 128/77 10/23/18 18:57 Pulse Ox 100 10/23/18 18:57
[2018-10-23] MEDS: Normal Saline 1,000 ML 100 ML IV (23:40)
[2018-10-23] MEDS: Hydrocortisone SOD SUC. 100 MG VIAL 50 MG IVP (23:57)
[2018-10-24 00:15] VITALS: BP 140/80; PULSE 79; RESP 20; TEMP 36.6; O2SAT 98
[2018-10-24] MEDS: Insulin NPH-Human 300 UNITS/3 ML PEN 25 UNIT SC ×3 (00:22→16:02)
[2018-10-24] MEDS: Hydrocortisone SOD SUC. 100 MG VIAL IVP (00:22)
[2018-10-24 03:38] VITALS: BP 123/60; PULSE 55; RESP 20; TEMP 36.8; O2SAT 98
[2018-10-24] MEDS: Hydrocortisone SOD SUC. 100 MG VIAL 50 MG IVP ×3 (06:48→19:09)
[2018-10-24] MEDS: Levothyroxine 25 MCG TAB PO (06:49)
[2018-10-24 07:00] VITALS: BP 154/78; PULSE 65; RESP 24; TEMP 36.6; O2SAT 94
[2018-10-24 07:12] LABS: Lactate 0.9 mmol/L (0.6-1.4)
[2018-10-24 07:18] LABS: Abs Immature Grans 0.04 k/cumm (0.0-0.09); Absolute Basophil Count 0.01 k/cumm (0.0-0.2); Absolute Eosinophil Count 0.02 k/cumm (0.0-0.7); Absolute Lymphocyte Count 0.54 k/cumm (1.2-3.4); Absolute Monocyte Count 0.18 k/cumm (0.11-0.7); Absolute Neutrophil Count 7.41 k/cumm (1.2-6.7); Basophils % 0.1; Eosinophils % 0.2; HCT 32.8 % (40.0-50.0); HGB 10.5 g/dL (13.5-17.5); Immature Grans % 0.5; Lymphocytes % 6.6; Mean Corpuscular Hemoglobin 22.7 pg (27.0-33.0); Mean Platelet Volume 10.2 fL (8.0-11.0); Monocytes % 2.2; Neutrophils % 90.4; Platelet Count 353 x1000/uL (130-400); RBC 4.62 m/cumm (4.50-6.00); RBC Distribution Width 17.2 % (11.8-14.1)
[2018-10-24 07:31] LABS: Anion Gap 11.7 mmol/L (3-11); BUN 68 mg/dL (7-18); CO2 17.3 mmol/L (21.0-32.0); CREATININE 2.76 mg/dL (0.70-1.30); Calcium 8.6 mg/dL (8.5-10.1); Chloride 110 mmol/L (98-107); Glucose 322 mg/dL (70-100); Potassium 4.1 mmol/L (3.5-5.1); Sodium 139 mmol/L (136-145)
[2018-10-24 07:56] LABS: Procalcitonin 0.4 ng/mL
[2018-10-24] MEDS: Normal Saline 1,000 ML 100 ML IV (09:20)
[2018-10-24] MEDS: Terazosin 2 MG CAP 4 MG PO ×2 (09:27→20:30)
[2018-10-24] MEDS: Lactobacillus Acidophilus CAP 1 CAP PO ×3 (09:28→20:31)
[2018-10-24] MEDS: Apixaban 5 MG TAB PO ×2 (09:28→20:31)
[2018-10-24] MEDS: Venlafaxine 37.5 MG CAPCR 112.5 MG PO (09:29)
[2018-10-24] MEDS: cloNIDine 0.1 MG TAB PO (09:30)
[2018-10-24] MEDS: Pantoprazole 40 MG TABCR PO (09:30)
[2018-10-24] MEDS: Insulin Aspart 300 UNITS/3 ML PEN SC ×7 (09:31→23:18)
[2018-10-24] MEDS: amLODIPine 5 MG TAB PO (09:31)
[2018-10-24] MEDS: Insulin Glargine 300 UNITS/3 ML PEN 46 UNITS SC ×2 (09:34→20:31)
[2018-10-24] MEDS: Cyanocobalamin 500 MCG TAB 1000 MCG PO (09:36)
[2018-10-24] MEDS: Magnesium Chloride 64 MG TABCR PO ×2 (09:36→20:31)
[2018-10-24] MEDS: Sodium Bicarbonate 650 MG TAB PO ×3 (09:36→20:31)
[2018-10-24] MEDS: Ferrous Sulfate 325 MG TAB PO ×2 (09:36→20:31)
[2018-10-24] MEDS: Ascorbic Acid 500 MG TAB PO ×2 (09:36→20:31)
[2018-10-24] MEDS: Multivitamin w/Minerals TAB 1 TAB PO (09:37)
[2018-10-24] MEDS: Folic Acid 1 MG TAB PO (09:37)
[2018-10-24 11:26] VITALS: BP 129/72; PULSE 46; RESP 17; TEMP 36.4; O2SAT 99
[2018-10-24] MEDS: Normal Saline Flush 10 ML SYR IVP ×2 (12:21→19:10)
[2018-10-24 15:15] VITALS: BP 131/67; PULSE 48; RESP 18; TEMP 35.9; O2SAT 97
--- NOTE | 2018-10-24 15:58 | INITIAL_ITS ---
- If Service Date Differs Date of service: 10/24/18 Time of Service: 15:58 Care Management Initial Assess REASON FOR HOSPITALIZATION:: UTI PAST MEDICAL HISTORY/PAST SURGICAL HISTORY:: CHF, Anemia, Anxiety, Back Pain, Bipolar Disorder, CAD, Cardiopulmonary arrest with successful resuscitation, cholelithiasis, anxiety, insomnia, chronic pain, CKD, Crohn's Disease, DM type 2 with diabetic neuropathy, diabetic foot ulcer, dyslipidemia, heme positive stool, hemorrhagic cystitis, hypertension, hypoandrogenism, hypothyroidism, impaired mobility and ADLs, Obesity, Pedal edema, Osteoarthritis of both knees, poor self care, poorly controlled DM2 with circulatory disorder, RA, TKA, Fracture ORIF R distal humerus fracture. PREVIOUS FUNCTIONAL STATUS/SOCIAL/FAMILY SUPPORTS:: Brendan is a skilled nursing resident at the [facility] facility in [place] and requires assistance with all ADLs. Brendan has a sister, Lian Hardy (P#[phone]) who lives in [facility] and though they have limited contact via phone every couple of weeks-she is his only identified family support. Brendan enjoys reading and watching TV. CURRENT FUNCTIONAL STATUS:: Brendan is alert he is receptive to CM visit. Brendan is well known to this CM, he reports no changes since previous admission. ADVANCE DIRECTIVES:: [facility] on file Has patient been provided with information about the portal?: Yes Did the patient sign up for the portal?: No CODE STATUS:: Full Code INSURANCE COVERAGE / FINANCIAL ISSUES:: Medicaid. Medicare CURRENT HOME/COMMUNITY SERVICES/EQUIPMENT:: Brendan is a resident at the [facility]-the facility manages his service and equipment needs. PRIMARY CARE PHYSICIAN:: Anne Horowitz MD POTENTIAL DISCHARGE NEEDS:: Coordinated return to [facility]. PATIENT/FAMILY EDUCATION NEEDS:: Review of discharge planning with the patient, and coordiantion and handoff report to the [facility] for continued care. ANTICIPATED BARRIERS TO DISCHARGE:: None TRANSPORTATION:: Via wheelchair van, [facility] PLAN:: Brendan will be discharged back to the [facility] when he is medically ready. He remain observation today he is receiving IV Abx, stress dose steroids. CM to provide support and coordinate transition back to the [facility] when he is medically ready.
--- NOTE | 2018-10-24 17:40 | W.PM.PROGNOT ---
Date of Service Date of service: 10/24/18 Time of Service: 17:40 Assessment and Plan (1) Complicated UTI (urinary tract infection): Current visit: No Status: Acute - Continue broad coverage with Vancomycin & Cefepime, currently day#1. Await Urine and Blood Cultures. - As patient appears improved and has a propensity for volume overload, will discontinue IVFs this afternoon and monitor. - Currently with Downing in place. (2) Acute on chronic renal insufficiency: Current visit: No Status: Acute Appears improved with gentle IVF resuscitation. Discontinue fluids as above, continue to hold lasix, and ensure Low potassium diet. Monitor renal function and electrolytes carefully, especially potassium while holding furosemide - patient does have a history of hyperkalemia. (3) Adrenal insufficiency: Current visit: No Status: Chronic Continue stress dosed steroids with plans for slow wean. (4) Atrial flutter, paroxysmal: Current visit: No Status: Chronic No current hamzah agents as patient does develop bradycardia easily. Appears to be in sinus currently. Continue anticoagulation with apixaban. (5) Diabetes mellitus: Current visit: No Status: Chronic Continue basal insulin, sliding scale coverage, and ADA diet. 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 Monitor blood pressure. (7) Hypothyroidism: Current visit: No Status: Chronic Continue Replacement therapy. (8) Advance directive on file: Current visit: No Status: Acute Full Code. (9) DVT prophylaxis: Current visit: Yes Status: Acute On chronic anticoagulation with Apixaban. Also on PPI therapy for GI protection. Subjective Interval history since last seen: 58 year old male resident of the [facility], with a prior history of recurrent MRSA Bacteremia, admitted on 10/23 from [facility] Emergency Department with a diagnosis of potential UTI. Mr. Corley has been hospitalized here at [facility] with sepsis on numerous prior occasions. He has a history of Group C strep and MRSA bacteremia, as well as E. Fecalis UTI with Urosepsis in the past. He suffered a cardiopulmonary arrest previously, necessitating a transfer to [facility] at which time he was treated for Choleycystitis, and as he was deemed not a surgical candidate was treated conservatively with a pigtail catheter that remains in place. His other medical history includes DM, Adrenal insufficiency secondary to chronic steroid use, RA, Crohn's disease s/p Colectomy, OA, CKD with prior JESUS and resultant hyperkalemia, HTN, CAD, hypothyroidism, Obesity, and chronic pain. He's had recurrent UTIs, and also has a history of a non-healing diabetic foot ulcer for which he has undergone debridement in the past with excision of the right toe without evidence of Osteo, chronically followed as an outpatient by Podiatry. He also suffers from frequent hyperkalemia, and was diagnosed with Atrial Flutter during a recent hospitalization, for which he is on chronic anticoagulation. The patient has also been treated for MRSA bacteremia on multiple prior occasions, including January of 2018, February, April, and June of 2018. He was ultimately found to have evidence of a right elbow septic arthritis, transferred to [facility], and underwent hardware removal in his elbow in June followed by a washout of the wound. He has undergone a subsequent 6 week total course of antibiotics. Overnight on 10/23 Mr. Corley was evaluated for onset of fever and mental status changes, with work-up that was significant for a mild leukocytis, low bicarb but essentially normal anion gap, elevated Creatinine mildly above baseline, negative CXR, and urinalysis with Large LE and >50 WBCs suspicious for a UTI. Procalcitonin was checked and elevated at 0.5. The patient was referred for admission for further evaluation and treatment. This morning he reports improvement overall. He has remained afebrile, and without reported overnight events. Exam Narrative Exam Narrative: General: Patient appears comfortable, AAOX3, NAD Neck: Supple CV: Regular, nontachycardic, S1S2, No rubs, murmurs, or gallops. Pulmonary: Clear to auscultation bilaterally, no crackles, wheezing, or rhonchi on exam limited by body habitus Abdomen: + Bowel Sounds, soft, nontender, nondistended. Obese in contour Vascular: +1 b/l lower extremity edema Psych: Normal mood and affect. Objective Objective Clinical Data: Abnormal lab results 10/23/18 10/24/18 10/24/18 Range/Units 22:15 07:01 07:01 Hgb 10.5 L (13.5-17.5) g/dL Hct 32.8 L (40.0-50.0) % MCV 71.0 L (80-95) fL MCH 22.7 L (27.0-33.0) pg RDW 17.2 H (11.8-14.1) % Absolute Neutrophils 7.41 H (1.2-6.7) k/cumm Absolute Lymphocytes 0.54 L (1.2-3.4) k/cumm Chloride 110 H (98-107) mmol/L Carbon Dioxide 17.3 L (21.0-32.0) mmol/L Anion Gap 11.7 H (3-11) mmol/L BUN 68 H (7-18) mg/dL Creatinine 2.76 H (0.70-1.30) mg/dL Glucose 454 H D 322 H D (70-100) mg/dL Vital Signs Temperature 35.9 C L 10/24/18 15:15 Temperature Source Tympanic 10/24/18 15:15 Pulse 48 L 10/24/18 15:15 Pulse Rhythm Regular 10/24/18 08:00 Pulse 75 10/23/18 18:32 Respiratory Rate 18 10/24/18 15:15 Respiratory Effort Non-Labored 10/24/18 08:00 Respiratory Depth Normal 10/24/18 08:00 Respiratory Pattern Normal 10/24/18 08:00 Blood Pressure 131/67 10/24/18 15:15 Blood Pressure Mean 17 10/23/18 18:32 Blood Pressure Position Supine 10/23/18 15:23 Pulse Oximetry 97 10/24/18 15:15 Oxygen Delivery Method Room Air 10/24/18 15:15 Oxygen Flow Rate 0 10/24/18 15:15 Pain Level 5 10/24/18 15:15 Intake & Output 10/23/18 10/24/18 10/24/18 23:59 11:59 23:59 Intake Total 1110 / 1110 966.667 / 966.667 Output Total 195 / 195 1200 / 1625 425 / 1625 Balance 915 / 915 -233.333 / -658.333 -425 / -658.333 Weight 93.9 kg Intake: IV 1110 / 1110 966.667 / 966.667 Output: Drainage Right Upper Abdomen Urine 175 / 175 700 / 925 225 / 925 Stool 500 / 700 200 / 700 Other: Urine Color Pale Yellow Yellow Yellow Urine Appearance Clear Cloudy Cloudy Urine Odor Normal Normal Comment pt refused catheter Voiding Methods Urinal Urinal Urinal Laboratory Results WBC 8.20 k/cumm (4.4-10.8) D 10/24/18 07:01 RBC 4.62 m/cumm (4.50-6.00) 10/24/18 07:01 Hgb 10.5 g/dL (13.5-17.5) L 10/24/18 07:01 Hct 32.8 % (40.0-50.0) L 10/24/18 07:01 MCV 71.0 fL (80-95) L 10/24/18 07:01 MCH 22.7 pg (27.0-33.0) L 10/24/18 07:01 MCHC 32.0 g/dL (32.0-36.0) 10/24/18 07:01 RDW 17.2 % (11.8-14.1) H 10/24/18 07:01 Plt Count 353 x1000/uL (130-400) 10/24/18 07:01 MPV 10.2 fL (8.0-11.0) 10/24/18 07:01 Immature Gran % 0.5 10/24/18 07:01 90.4 10/24/18 07:01 6.6 10/24/18 07:01 2.2 10/24/18 07:01 0.2 10/24/18 07:01 0.1 10/24/18 07:01 Absolute Neutrophils 7.41 k/cumm (1.2-6.7) H 10/24/18 07:01 Absolute Lymphocytes 0.54 k/cumm (1.2-3.4) L 10/24/18 07:01 Absolute Monocytes 0.18 k/cumm (0.11-0.7) 10/24/18 07:01 Absolute Eosinophils 0.02 k/cumm (0.0-0.7) 10/24/18 07:01 Absolute Basophils 0.01 k/cumm (0.0-0.2) 10/24/18 07:01 Rbc morph reviewed 10/23/18 15:42 RBC Morphology See below 10/23/18 15:42 2+ 10/23/18 15:42 1+ 10/23/18 15:42 2+ 10/23/18 15:42 2+ 10/23/18 15:42 PT 10.5 sec (9.3-11.0) 10/23/18 15:42 INR 1.1 (0.9-1.1) 10/23/18 15:42 APTT 26.6 sec (21.0-31.4) 10/23/18 15:42 Sodium 139 mmol/L (136-145) 10/24/18 07:01 Potassium 4.1 mmol/L (3.5-5.1) 10/24/18 07:01 Chloride 110 mmol/L (98-107) H 10/24/18 07:01 Carbon Dioxide 17.3 mmol/L (21.0-32.0) L 10/24/18 07:01 11.7 mmol/L (3-11) H 10/24/18 07:01 BUN 68 mg/dL (7-18) H 10/24/18 07:01 2.76 mg/dL (0.70-1.30) H 10/24/18 07:01 23.70 (mL/min/1.73m2) 10/24/18 07:01 Glucose 322 mg/dL (70-100) H D 10/24/18 07:01 0.9 mmol/L (0.6-1.4) 10/24/18 07:01 Calcium 8.6 mg/dL (8.5-10.1) 10/24/18 07:01 0.2 mg/dL (0.2-1.0) 10/23/18 15:42 AST 8 U/L (15-37) L 10/23/18 15:42 ALT 20 U/L (16-63) 10/23/18 15:42 201 U/L (46-116) H 10/23/18 15:42 7.1 g/dL (6.4-8.2) 10/23/18 15:42 2.6 g/dL (3.4-5.0) L 10/23/18 15:42 0.4 ng/mL 10/24/18 07:01 Yellow (Yellow) 10/23/18 13:45 Cloudy (Clear) 10/23/18 13:45 5.5 (5-8) 10/23/18 13:45 Ur Specific [place] 1.015 (1.005-1.025) 10/23/18 13:45 30 mg/dL (Negative) H 10/23/18 13:45 Negative mg/dL (Negative) 10/23/18 13:45 Moderate (Negative) H 10/23/18 13:45 Negative (Negative) 10/23/18 13:45 Negative (Negative) 10/23/18 13:45 0.2 EU/dL (Up TO 0.2) 10/23/18 13:45 Ur Leukocyte Esterase Large (Negative) H 10/23/18 13:45 Not Applicable 10/23/18 13:45 >50 HPF (0-5) 10/23/18 13:45 Ur Epithelial Cells Not Applicable 10/23/18 13:45 Not Applicable 10/23/18 13:45 HPF (Negative) 10/23/18 13:45 Not Applicable 10/23/18 13:45 Ur Culture Indicated? Yes 10/23/18 13:45 Negative mg/dL (Negative) 10/23/18 13:45
[2018-10-24] MEDS: CEFEPIME 2 GM in Normal Saline 100 ML IVPB (19:09)
[2018-10-24 23:00] VITALS: BP 138/87; PULSE 53; RESP 18; TEMP 36.6; O2SAT 98
[2018-10-24] MEDS: Gabapentin 100 MG CAP 200 MG PO (23:19)
[2018-10-24] MEDS: traZODone 50 MG TAB PO (23:20)
[2018-10-24] MEDS: Melatonin 3 MG TAB 6 MG PO (23:20)
[2018-10-25] MEDS: Hydrocortisone SOD SUC. 100 MG VIAL 50 MG IVP ×5 (00:14→23:19)
[2018-10-25 04:22] VITALS: BP 131/79; PULSE 55; RESP 18; TEMP 37; O2SAT 98
[2018-10-25] MEDS: Normal Saline Flush 10 ML SYR IVP ×3 (06:13→17:40)
[2018-10-25] MEDS: hydrOXYzine HCL 25 MG TAB PO ×2 (06:14→12:10)
[2018-10-25] MEDS: Levothyroxine 25 MCG TAB PO (06:14)
[2018-10-25] MEDS: Insulin Glargine 300 UNITS/3 ML PEN 46 UNITS SC ×2 (07:26→20:57)
[2018-10-25] MEDS: Insulin Aspart 300 UNITS/3 ML PEN SC ×7 (07:27→23:09)
[2018-10-25 07:31] LABS: Abs Immature Grans 0.09 k/cumm (0.0-0.09); Absolute Basophil Count 0.02 k/cumm (0.0-0.2); Absolute Eosinophil Count 0.12 k/cumm (0.0-0.7); Absolute Monocyte Count 0.44 k/cumm (0.11-0.7); Absolute Neutrophil Count 6.28 k/cumm (1.2-6.7); Basophils % 0.3; Eosinophils % 1.5; HCT 31.5 % (40.0-50.0); HGB 10.2 g/dL (13.5-17.5); Immature Grans % 1.2; Lymphocytes % 10.3; Mean Corp. HGB Concentration 32.4 g/dL (32.0-36.0); Mean Corpuscular Hemoglobin 23.2 pg (27.0-33.0); Mean Corpuscular Volume 71.6 fL (80-95); Mean Platelet Volume 9.6 fL (8.0-11.0); Monocytes % 5.7; Platelet Count 338 x1000/uL (130-400); RBC Distribution Width 17.1 % (11.8-14.1); White Blood Cell Count 7.75 k/cumm (4.4-10.8)
[2018-10-25 07:39] LABS: Anion Gap 10.3 mmol/L (3-11); BUN 58 mg/dL (7-18); CO2 17.7 mmol/L (21.0-32.0); CREATININE 2.53 mg/dL (0.70-1.30); Calcium 8.6 mg/dL (8.5-10.1); Chloride 110 mmol/L (98-107); Glucose 313 mg/dL (70-100); Magnesium 1.7 mg/dL (1.8-2.4); Potassium 4.3 mmol/L (3.5-5.1); Sodium 138 mmol/L (136-145)
[2018-10-25 07:53] LABS: Anisocytosis 2+; Basophilic Stippling Present; Diff Comment RBC Morph Reviewed; Hypochromasia 3+; Microcytosis 3+
[2018-10-25 07:54] LABS: Poikilocytes 3+; Polychromasia Present
[2018-10-25 08:35] VITALS: BP 138/76; PULSE 55; RESP 20; TEMP 36.2; O2SAT 99
[2018-10-25] MEDS: Multivitamin w/Minerals TAB 1 TAB PO (09:01)
[2018-10-25] MEDS: cloNIDine 0.1 MG TAB PO ×2 (09:01→14:03)
[2018-10-25] MEDS: Ascorbic Acid 500 MG TAB PO ×2 (09:01→20:59)
[2018-10-25] MEDS: Sodium Bicarbonate 650 MG TAB PO ×3 (09:01→20:59)
[2018-10-25] MEDS: Pantoprazole 40 MG TABCR PO (09:01)
[2018-10-25] MEDS: Terazosin 2 MG CAP 4 MG PO ×2 (09:01→20:59)
[2018-10-25] MEDS: Venlafaxine 37.5 MG CAPCR 112.5 MG PO (09:01)
[2018-10-25] MEDS: Magnesium Oxide 400 MG TAB PO (09:01)
[2018-10-25] MEDS: Magnesium Chloride 64 MG TABCR PO ×2 (09:01→21:00)
[2018-10-25] MEDS: amLODIPine 5 MG TAB PO (09:02)
[2018-10-25] MEDS: Ferrous Sulfate 325 MG TAB PO ×2 (09:02→21:00)
[2018-10-25] MEDS: predniSONE 10 MG TAB PO (09:02)
[2018-10-25] MEDS: Cyanocobalamin 500 MCG TAB 1000 MCG PO (09:02)
[2018-10-25] MEDS: Lactobacillus Acidophilus CAP 1 CAP PO ×3 (09:02→20:59)
[2018-10-25] MEDS: Folic Acid 1 MG TAB PO (09:02)
[2018-10-25] MEDS: Apixaban 5 MG TAB PO ×2 (09:02→20:59)
--- NOTE | 2018-10-25 09:06 | IN_ITS ---
Date of service: 10/25/18 Time of Service: 08:15 PT Notes Inpatient Physical Therapy Evaluation Date: October 25, 2018 Referring Doctor: Ariel Bravo MD PT Orders: PT CONSULT: Eval/treat Precautions: Fall. Barton. Patient Profile/Admitting Diagnosis: 58 year old man resident of the [facility], with a prior history of recurrent MRSA Bacteremia, being admitted to [facility] secondary to UTI. PMHX: 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 (Ac [place] vie[place]),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),Pulmonary hypertension (Chronic) Toxic metabolic encephalopathy (Resolved),Chronic cholecystitis (Chronic), 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 2 diabetes mellitus (Ruled-out), MRSA bacteremia (Acute) Ambulatory dysfunction (Chronic), Diabetic foot ulcer (Chronic), Poorly controlled type 2 diabetes mellitus with circulatory disorder (Chronic) Adrenal insufficiency (Chronic), CKD (chronic kidney disease) (Chronic),Heme positive stool (Chronic), History of sepsis, Pedal edema (Chronic) Chronic insomnia (Chronic),Hypertension (Chronic), Chronic pain (Chronic), Hypothyroidism (Chronic), Obesity (Chronic), Back pain (Chronic 06/21/13) Poor self care (Chronic 06/21/13), Chronic bipolar disorder (Chronic),CAD (coronary artery disease) (Chronic), Dyslipidemia (Chronic), Rheumatoid arthritis (Chronic) Osteoarthritis of both knees (Chronic), Cholelithiasis (Chronic), Impaired mobility and ADLs (Chronic), Hemorrhagic cystitis (Inactive), Anemia (Chronic),Chronic anxiety (Chronic) Ulcerative colitis (Chronic) PSH: History of insertion of T-tube into biliary tract (Chronic) S/P colectomy (Chronic) Arthroplasty of knee (Resolved 03/18/12) Fracture, Open Treatment (Resolved) Social History/Home Situation: Patient is a resident of the [facility]. Patient states that prior to his admission patient states that he was able to walk short distances wheeled walker with his diabetic shoes. He does not have his diabetic shoes with him and requests to hold off on any walking activities. Primarily utilizes a wheelchair for community ambulation purposes peer Current Functional Limitations: Patient requires assistance with all mobility ADL performance Equipment Owned/DME: Wheelchair, front-wheeled walker Subjective: Patient reports that he has been up sitting bedside with manageable symptoms. Does complain of increased pain into bilateral elbows. Reporting 6- 7/10 on VAS. Objective: General Observation: Patient was lying in bed alert and agreeable to PT consult this am. IV in right upper extremity. Bilateral feet wrapped with gauze per nursing for diabetic wound care. T-tube into biliary tract. Complaining of itching throughout his low back region. Mental Status: Alert and oriented x 3 Pain: Patient Reports 4/10 on VAS ROM: Right Upper Extremity: Shoulder flexion 60 degrees. Minimal elbow range of motion. Left Upper Extremity: Shoulder flexion 60 degrees. Elbow motion is within functional limits. Right Lower Extremity: Hip flexion 100 degrees active. Patient has approximately 10 degree knee flexion contracture. Demonstrates ankle dorsiflexion to 5 degrees beyond neutral. Left Lower Extremity: Hip flexion 95 degrees active. Patient has approximately 15 degree knee flexion contracture. Demonstrates ankle dorsiflexion to 5 deg anita beyond neutral. STRENGTH: Right Upper Extremity: Shoulder flexion 3/5. Toy Stuffer is weak. Left Upper Extremity: Shoulder flexion 3+/5. Biceps 4-/5. Triceps 4-/5. Toy Stuffer is weak. Right Lower Extremity: Hip flexion 4/5. Quads 4-/5. Hamstrings 3+/5. Ankle dorsiflexors 2-/5. Left Lower Extremity: Hip flexion 4/5. Quads 3+/5. Hamstrings 3+/5. Ankle dorsiflexiors 2-/5. Bed Mobility/Transfers: Brendan was able to I sit from supine position to side of bed. He was also I with sit to supine with HOB 30 degrees NT. Patient did sit to stand with min assist x1 to a front wheeled walker. Used a rocking technique required 3-4 attempts before achieving position. He stood for approximately 2 minutes while his bed was being made up. Patient reports that Dr. Motta does not want him standing or walking without them. Balance: Static Sitting Normal, Dynamic Sitting Normal, Standing balance poor. Patient refused any out of bed activities other than standing waiting for his bed to be made up. Special Tests: Mobility Limitations Standardized Measure [facility] AM-PAC 6 clicks Basic Mobility Inpatient Short Form: Raw Score: 15 CMS Score: 57.7% deficit Treatment: Inpatient initial evaluation Informed Consent/Education: Patient instructed in purpose of PT consult and plan of care. Assessment: Patient is a 58 year old man resident of the [facility], with a prior history of recurrent MRSA Bacteremia, being admitted secondary to UTI. Patient presents with clinical signs and symptoms consistent with reduced mobility related to acute medical issues. Patient does have chronic mobility deficits, and resides in a long-term care facility, where he requires assistance with all ambulation and self-care. PT goals will be targeted at maximizing patient's mobility and strength to allow for safe transition back to long-term care facility. He currently demonstrates the following impairment level findings: 1. Decreased lower extremity strength 2. Decreased upper extremity strength 3. Decreased activity tolerance 4. Decreased range of motion bilateral knees and hands 5. Decreased balance skills Impairments are contributing to the following functional limitations: 1. Unable to perform ambulation 2. Patient requiring assistance with bed mobility 3. Decreased activity tolerance 4. Decreased safety with transfers 5. Dependence with transfer task performance Patient is assessed as Moderate 05513 complexity based on the following: History: Reduced mobility due to weakness, 57-year-old male with complicated medical history and gradual decline in independence and mobility. Patient has been residing in a long-term care facility for the past 5 years, and demonstrates limited mobility in that setting. He also struggles with multiple areas of joint pain related to RA as well as with history of significant cardiac and GI issues as noted above under past medical history. Examination: Functional limitations and underlying impairments resulting to an AMP?PAC score 15 and an equivalent CMS score of 57.7% Presentation: Evolving Decision Making: Moderate complexity Goals: Goals X1 week 1. Supine-Sit independent 2. Sit-Supine independent 3. Sit-Stand SBA 4. Stand-Sit S 5. Bed-Chair CGA with FWW 6. Chair-Bed CGA with FWW 7. SBA gait on level surface with use of least restrictive device for at least 50 feet without report of pain 8. Good static and dynamic standing balance/tolerance Plan of Care/Treatment Plan: 1-2x/day, 7 days/week x 1 week. Plan of care has been reviewed with the STREAM CONTROL OFFICER providing the service under Physical Therapy direction. Initiate Physical Therapy intervention for strengthening of bilateral LE and left UE, bed mobility, transfers, gait, balance training, use of assistive device. Ambulation to be done with diabetic shoes. Need to contact the [facility] to get his shoes. Otherwise strengthening to be done bedside sitting. DISCHARGE RECOMMENDATIONS: Return to the [facility] when medically stable. Will highly benefit from continued skilled PT services at the SNF to establish a functional program and reduce fall risk. TREATMENT CODE/TIME: 89012 30 minutes beginning at 8:15 AM. Thank you for this referral. Hemanth Casas PT, DPT
--- NOTE | 2018-10-25 12:09 | PGE_ITS ---
Date of Service Date of service: 10/25/18 Time of Service: 12:09 Assessment and Plan (1) Complicated UTI (urinary tract infection): Current visit: No Status: Ruled-out No evidence of infection by Culture results that show probable contaminated collection, with 10-50,000 mixed Gram + [place] and <10,000 GNR. CXR negative, and blood cultures remain without growth. - Unsure of etiology for patient's fever and altered mental status. No evidence of skin or soft tissue infection, and wounds appear clean. (2) Acute on chronic renal insufficiency: Current visit: No Status: Acute Appears improved with gentle IVF resuscitation. Discontinued fluids as above, continue to hold lasix, and ensure Low potassium diet. Monitor renal function and electrolytes carefully, especially potassium while holding furosemide - patient does have a history of hyperkalemia. Creatinine appears improved. (3) Adrenal insufficiency: Current visit: No Status: Chronic Continue stress dosed steroids with plans for slow wean. (4) Atrial flutter, paroxysmal: Current visit: No Status: Chronic No current hamzah agents as patient does develop bradycardia easily. Appears to be in sinus currently. Continue anticoagulation with apixaban. (5) Diabetes mellitus: Current visit: No Status: Chronic Continue basal insulin, sliding scale coverage, and ADA diet. Blood Sugars elevated in the setting of stress dosed steroid use. Qualifiers: Diabetes mellitus complication detail: with polyneuropathy Diabetes mellitus complication status: with neurologic complications Diabetes mellitus salvage determiner insulin use: with senior living use Diabetes mellitus type: type 2 Qualified Code(s): E11.42 - Type 2 diabetes mellitus with diabetic polyneuropathy; Z79.4 - care home (current) use of insulin (6) Hypertension: Current visit: No Status: Chronic Currently on CCB, Clonidine, and Terazosin. Monitor blood pressure. (7) Hypothyroidism: Current visit: No Status: Chronic Continue Replacement therapy. (8) Advance directive on file: Current visit: No Status: Acute Full Code. (9) DVT prophylaxis: Current visit: Yes Status: Acute On chronic anticoagulation with Apixaban. Also on PPI therapy for GI protection. Subjective Interval history since last seen: 58 year old male resident of the [facility], with a prior history of recurrent MRSA Bacteremia, admitted on 10/23 from [facility] Emergency Department with a diagnosis of potential UTI. Mr. Corley has been hospitalized here at [facility] with sepsis on numerous prior occasions. He has a history of Group C strep and MRSA bacteremia, as well as E. Fecalis UTI with Urosepsis in the past. He suffered a cardiopulmonary arrest previously, necessitating a transfer to [facility] at which time he was treated for Choleycystitis, and as he was deemed not a surgical candidate was treated conservatively with a pigtail catheter that remains in place. His other medical history includes DM, Adrenal insufficiency secondary to chronic steroid use, RA, Crohn's disease s/p Colectomy, OA, CKD with prior JESUS and resultant hyperkalemia, HTN, CAD, hypothyroidism, Obesity, and chronic pain. He's had recurrent UTIs, and also has a history of a non-healing diabetic foot ulcer for which he has undergone debridement in the past with excision of the right toe without evidence of Osteo, chronically followed as an outpatient by Podiatry. He also suffers from frequent hyperkalemia, and was diagnosed with Atrial Flutter during a recent hospitalization, for which he is on chronic anticoagulation. The patient has also been treated for MRSA bacteremia on multiple prior occasions, including January of 2018, February, April, and June of 2018. He was ultimately found to have evidence of a right elbow septic arthritis, transferred to [facility], and underwent hardware removal in his elbow in June followed by a washout of the wound. He has undergone a subsequent 6 week total course of antibiotics. On 10/23 Mr. Corley was evaluated for onset of fever and mental status changes, with work-up that was significant for a mild leukocytis, low bicarb but essentially normal anion gap, elevated Creatinine mildly above baseline, negative CXR, and urinalysis with Large LE and >50 WBCs suspicious for a UTI. Procalcitonin was checked and elevated at 0.5. The patient was referred for admission for further evaluation and treatment. This morning he again reports improvement overall, and appers to be at baseline. Unfortunately his urine culture is not revealing, and being interpreted as potential contaminant . He has remained afebrile, and without reported overnight events. Exam Narrative Exam Narrative: General: Patient appears comfortable, AAOX3, NAD Skin: No evidence of cellulitis Neck: Supple CV: Regular, nontachycardic, S1S2, No rubs, murmurs, or gallops. Pulmonary: Clear to auscultation bilaterally, no crackles, wheezing, or rhonchi on exam limited by body habitus Abdomen: + Bowel Sounds, soft, nontender, nondistended. Obese in contour Vascular: +1 b/l lower extremity edema Musculoskeletal: Wound on feet evaluated. Generally clean and without cellulitic changes, induration, or fluctuance. Small areas of eschar formation centrally. Psych: Normal mood and affect. Objective Objective Clinical Data: Abnormal lab results 10/25/18 10/25/18 Range/Units 07:02 07:02 RBC 4.40 L (4.50-6.00) m/cumm Hgb 10.2 L (13.5-17.5) g/dL Hct 31.5 L (40.0-50.0) % MCV 71.6 L (80-95) fL MCH 23.2 L (27.0-33.0) pg RDW 17.1 H (11.8-14.1) % Absolute Lymphocytes 0.80 L (1.2-3.4) k/cumm Chloride 110 H (98-107) mmol/L Carbon Dioxide 17.7 L (21.0-32.0) mmol/L BUN 58 H (7-18) mg/dL Creatinine 2.53 H (0.70-1.30) mg/dL Glucose 313 H (70-100) mg/dL Magnesium 1.7 L (1.8-2.4) mg/dL Vital Signs Temperature 36.2 C L 10/25/18 08:35 Temperature Source Tympanic 10/25/18 08:35 Pulse 55 L 10/25/18 08:35 Pulse Rhythm Regular 10/25/18 09:08 Pulse 75 10/23/18 18:32 Respiratory Rate 20 10/25/18 08:35 Respiratory Effort Non-Labored 10/25/18 09:08 Respiratory Depth Normal 10/25/18 09:08 Respiratory Pattern Normal 10/25/18 09:08 Blood Pressure 138/76 10/25/18 08:35 Blood Pressure Mean 17 10/23/18 18:32 Blood Pressure Position Supine 10/23/18 15:23 Pulse Oximetry 99 10/25/18 08:35 Oxygen Delivery Method Room Air 10/25/18 08:35 Oxygen Flow Rate 0 10/25/18 08:35 Pain Level 0 10/25/18 08:35 Intake & Output 08/10/25/18 10/25/18 23:59 11:59 23:59 Intake Total 1830 / 2796.667 820 / 820 Output Total 1225 / 2425 750 / 750 Balance 605 / 371.667 70 / 70 Intake: IV 1350 / 2316.667 100 / 100 Oral 480 / 480 720 / 720 Output: Urine 775 / 1475 400 / 400 Stool 450 / 950 350 / 350 Other: Urine Color Yellow Yellow Urine Appearance Clear Clear Urine Odor Normal Normal Voiding Methods Urinal Urinal Laboratory Results WBC 7.75 k/cumm (4.4-10.8) 10/25/18 07:02 RBC 4.40 m/cumm (4.50-6.00) L 10/25/18 07:02 Hgb 10.2 g/dL (13.5-17.5) L 10/25/18 07:02 Hct 31.5 % (40.0-50.0) L 10/25/18 07:02 MCV 71.6 fL (80-95) L 10/25/18 07:02 MCH 23.2 pg (27.0-33.0) L 10/25/18 07:02 MCHC 32.4 g/dL (32.0-36.0) 10/25/18 07:02 RDW 17.1 % (11.8-14.1) H 10/25/18 07:02 Plt Count 338 x1000/uL (130-400) 10/25/18 07:02 MPV 9.6 fL (8.0-11.0) 10/25/18 07:02 Immature Gran % 1.2 10/25/18 07:02 81.0 10/25/18 07:02 10.3 10/25/18 07:02 5.7 10/25/18 07:02 1.5 10/25/18 07:02 0.3 10/25/18 07:02 Absolute Neutrophils 6.28 k/cumm (1.2-6.7) 10/25/18 07:02 Absolute Lymphocytes 0.80 k/cumm (1.2-3.4) L 10/25/18 07:02 Absolute Monocytes 0.44 k/cumm (0.11-0.7) 10/25/18 07:02 Absolute Eosinophils 0.12 k/cumm (0.0-0.7) 10/25/18 07:02 Absolute Basophils 0.02 k/cumm (0.0-0.2) 10/25/18 07:02 Rbc morph reviewed 10/25/18 07:02 RBC Morphology See below 10/25/18 07:02 Present 10/25/18 07:02 3+ 10/25/18 07:02 3+ 10/25/18 07:02 Present 10/25/18 07:02 2+ 10/25/18 07:02 3+ 10/25/18 07:02 2+ 10/23/18 15:42 PT 10.5 sec (9.3-11.0) 10/23/18 15:42 INR 1.1 (0.9-1.1) 10/23/18 15:42 APTT 26.6 sec (21.0-31.4) 10/23/18 15:42 Sodium 138 mmol/L (136-145) 10/25/18 07:02 Potassium 4.3 mmol/L (3.5-5.1) 10/25/18 07:02 Chloride 110 mmol/L (98-107) H 10/25/18 07:02 Carbon Dioxide 17.7 mmol/L (21.0-32.0) L 10/25/18 07:02 10.3 mmol/L (3-11) 10/25/18 07:02 BUN 58 mg/dL (7-18) H 10/25/18 07:02 2.53 mg/dL (0.70-1.30) H 10/25/18 07:02 26.20 (mL/min/1.73m2) 10/25/18 07:02 Glucose 313 mg/dL (70-100) H 10/25/18 07:02 0.9 mmol/L (0.6-1.4) 10/24/18 07:01 Calcium 8.6 mg/dL (8.5-10.1) 10/25/18 07:02 Magnesium 1.7 mg/dL (1.8-2.4) L 10/25/18 07:02 0.2 mg/dL (0.2-1.0) 10/23/18 15:42 AST 8 U/L (15-37) L 10/23/18 15:42 ALT 20 U/L (16-63) 10/23/18 15:42 201 U/L (46-116) H 10/23/18 15:42 7.1 g/dL (6.4-8.2) 10/23/18 15:42 2.6 g/dL (3.4-5.0) L 10/23/18 15:42 0.4 ng/mL 10/24/18 07:01 Yellow (Yellow) 10/23/18 13:45 Cloudy (Clear) 10/23/18 13:45 5.5 (5-8) 10/23/18 13:45 Ur Specific [place] 1.015 (1.005-1.025) 10/23/18 13:45 30 mg/dL (Negative) H 10/23/18 13:45 Negative mg/dL (Negative) 10/23/18 13:45 Moderate (Negative) H 10/23/18 13:45 Negative (Negative) 10/23/18 13:45 Negative (Negative) 10/23/18 13:45 0.2 EU/dL (Up TO 0.2) 10/23/18 13:45 Ur Leukocyte Esterase Large (Negative) H 10/23/18 13:45 Not Applicable 10/23/18 13:45 >50 HPF (0-5) 10/23/18 13:45 Ur Epithelial Cells Not Applicable 10/23/18 13:45 Not Applicable 10/23/18 13:45 HPF (Negative) 10/23/18 13:45 Not Applicable 10/23/18 13:45 Ur Culture Indicated? Yes 10/23/18 13:45 Negative mg/dL (Negative) 10/23/18 13:45
[2018-10-25 14:05] VITALS: PULSE 71
[2018-10-25 16:22] VITALS: BP 154/77; PULSE 49; RESP 18; TEMP 36.8; O2SAT 99
[2018-10-25] MEDS: CEFEPIME 2 GM in Normal Saline 100 ML IVPB (17:39)
[2018-10-25] MEDS: Gabapentin 100 MG CAP 200 MG PO (23:06)
[2018-10-25] MEDS: traZODone 50 MG TAB PO (23:06)
[2018-10-25] MEDS: Melatonin 3 MG TAB 6 MG PO (23:06)
[2018-10-25 23:35] VITALS: BP 160/70; PULSE 47; RESP 17; TEMP 37.1; O2SAT 95
[2018-10-26] MEDS: hydrOXYzine HCL 25 MG TAB PO (00:44)
[2018-10-26] MEDS: Normal Saline Flush 10 ML SYR IVP ×3 (05:21→20:06)
[2018-10-26] MEDS: Hydrocortisone SOD SUC. 100 MG VIAL 50 MG IVP ×3 (05:21→21:53)
[2018-10-26] MEDS: Levothyroxine 25 MCG TAB PO (05:24)
[2018-10-26 07:19] LABS: Absolute Basophil Count 0.02 k/cumm (0.0-0.2); Absolute Eosinophil Count 0.06 k/cumm (0.0-0.7); Absolute Lymphocyte Count 0.91 k/cumm (1.2-3.4); Absolute Monocyte Count 0.51 k/cumm (0.11-0.7); Absolute Neutrophil Count 8.08 k/cumm (1.2-6.7); Basophils % 0.2; Eosinophils % 0.6; HCT 32.2 % (40.0-50.0); HGB 10.2 g/dL (13.5-17.5); Lymphocytes % 9.4; Mean Corp. HGB Concentration 31.7 g/dL (32.0-36.0); Mean Corpuscular Hemoglobin 22.7 pg (27.0-33.0); Mean Corpuscular Volume 71.6 fL (80-95); Mean Platelet Volume 10.3 fL (8.0-11.0); Monocytes % 5.3; Neutrophils % 83.5; Platelet Count 344 x1000/uL (130-400); RBC Distribution Width 17.3 % (11.8-14.1); White Blood Cell Count 9.68 k/cumm (4.4-10.8)
[2018-10-26 07:30] VITALS: BP 152/75; PULSE 54; RESP 19; TEMP 36.4; O2SAT 97
[2018-10-26 07:32] LABS: Anion Gap 11.5 mmol/L (3-11); BUN 55 mg/dL (7-18); CO2 18.5 mmol/L (21.0-32.0); CREATININE 2.37 mg/dL (0.70-1.30); Calcium 9.1 mg/dL (8.5-10.1); Chloride 111 mmol/L (98-107); Estimated GFR 28.26 (mL/min/1.73m2); Glucose 239 mg/dL (70-100); Magnesium 1.7 mg/dL (1.8-2.4); Potassium 4.2 mmol/L (3.5-5.1); Sodium 141 mmol/L (136-145)
[2018-10-26] MEDS: Insulin Aspart 300 UNITS/3 ML PEN SC ×7 (08:48→21:53)
[2018-10-26] MEDS: Insulin Glargine 300 UNITS/3 ML PEN 46 UNITS SC ×2 (08:51→20:04)
[2018-10-26] MEDS: Terazosin 2 MG CAP 4 MG PO ×2 (08:55→20:02)
[2018-10-26] MEDS: Pantoprazole 40 MG TABCR PO (08:55)
[2018-10-26] MEDS: Sodium Bicarbonate 650 MG TAB PO ×3 (08:56→20:04)
[2018-10-26] MEDS: Venlafaxine 37.5 MG CAPCR 112.5 MG PO (08:56)
[2018-10-26] MEDS: Cyanocobalamin 500 MCG TAB 1000 MCG PO (08:56)
[2018-10-26] MEDS: Magnesium Chloride 64 MG TABCR PO ×2 (08:56→20:03)
[2018-10-26] MEDS: predniSONE 10 MG TAB PO (08:56)
[2018-10-26] MEDS: Ascorbic Acid 500 MG TAB PO ×2 (08:57→20:04)
[2018-10-26] MEDS: cloNIDine 0.1 MG TAB PO ×2 (08:57→20:04)
[2018-10-26] MEDS: Lactobacillus Acidophilus CAP 1 CAP PO ×3 (08:57→20:04)
[2018-10-26] MEDS: Folic Acid 1 MG TAB PO (08:57)
[2018-10-26] MEDS: Apixaban 5 MG TAB PO ×2 (08:57→20:04)
[2018-10-26] MEDS: Multivitamin w/Minerals TAB 1 TAB PO (08:57)
[2018-10-26] MEDS: amLODIPine 5 MG TAB PO (08:57)
[2018-10-26] MEDS: Ferrous Sulfate 325 MG TAB PO ×2 (08:57→20:04)
[2018-10-26 09:57] VITALS: PULSE 48; RESP 16
[2018-10-26] MEDS: Magnesium Oxide 400 MG TAB 800 MG PO (10:19)
--- NOTE | 2018-10-26 10:19 | PT.INTREAT ---
Date of service: 10/26/18 Time of Service: 09:55 PT Notes Inpatient Physical Therapy Treatment Note [facility] Date: 10/26/18 PRECAUTIONS:contact SUBJECTIVE: Brendan refuses to get OOB today, reporting he generally stays in bed most of the day anyway. He is agreeable to bed exercises. OBJECTIVE: [] BED MOBILITY/TRANSFERS refuses to sit at EOB or get OOB to sit in recliner. GAIT refused to ambulate to door and back. THEREX: completed a series of global LE strengthening while in bed. See flowsheet for details. ASSESSMENT: tolerated ex well. He had no interest or motivation to get OOB. Encouragement was given and reminded him how important change of position is for him, but he continued to refuse. PLAN: will continue towards established goals set forth by PT POC. TREATMENT CODE/TIME: 20 min. TPx1.
--- NOTE | 2018-10-26 14:05 | CMPROGNOTE_ITS ---
Care Management Progress Note S/O: Brendan is well known to [facility] and this casualty underwriter. He appears much healthier than during past admissions and per MD, will likely return home tomorrow. CM continues to follow. A: 58 year old male admitted to [facility] 10/23/18 for Acute Febrile Illness P: Brendan will be discharged back to the [facility] when he is medically ready. CM will provide support and coordination of transition back to the [facility].
--- NOTE | 2018-10-26 14:05 | PDOC.CMPRO ---
Care Management Progress Note S/O: Brendan is well known to [facility] and this principal technical writer. He appears much healthier than during past admissions and per MD, will likely return home tomorrow. CM continues to follow. A: 58 year old male admitted to [facility] 10/23/18 for Acute Febrile Illness P: Brendan will be discharged back to the [facility] when he is medically ready. CM will provide support and coordination of transition back to the [facility].
[2018-10-26 14:30] VITALS: BP 156/77; PULSE 46; RESP 14; TEMP 36.7; O2SAT 98
--- NOTE | 2018-10-26 14:34 | PGE_ITS ---
Date of Service Date of service: 10/26/18 Time of Service: 14:34 Assessment and Plan (1) Complicated UTI (urinary tract infection): Current visit: No Status: Ruled-out No evidence of infection by Culture results that show probable contaminated collection, with 10-50,000 mixed Gram + [place] and <10,000 GNR. CXR negative, and blood cultures remain without growth. - Unsure of etiology for patient's fever and altered mental status. No evidence of skin or soft tissue infection, and wounds appear clean. Discontinue antibiotics and monitor both mental status and vitals/temps over the course of the next 24 hours. Repeat Procalcitonin in the morning. (2) Acute on chronic renal insufficiency: Current visit: No Status: Acute Appears improved with gentle IVF resuscitation, with creatinine continue to get better. Ensure Low potassium diet. Monitor renal function and electrolytes carefully. (3) Adrenal insufficiency: Current visit: No Status: Chronic Continue stress dosed steroids and wean slowly. (4) Atrial flutter, paroxysmal: Current visit: No Status: Chronic No current hamzah agents as patient does develop bradycardia easily. Appears to be in sinus currently. Continue anticoagulation with apixaban. (5) Diabetes mellitus: Current visit: No Status: Chronic Continue basal insulin, sliding scale coverage, and ADA diet. Blood Sugars elevated in the setting of stress dosed steroid use. 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 Monitor blood pressure. (7) Hypothyroidism: Current visit: No Status: Chronic Continue Replacement therapy. (8) Advance directive on file: Current visit: No Status: Acute Full Code. (9) DVT prophylaxis: Current visit: Yes Status: Acute On chronic anticoagulation with Apixaban. Also on PPI therapy for GI protection. Subjective Interval history since last seen: 58 year old male resident of the [facility], with a prior history of recurrent MRSA Bacteremia, admitted on 10/23 from [facility] Emergency Department with a diagnosis of potential UTI. Mr. Corley has been hospitalized here at [facility] with sepsis on numerous prior occasions. He has a history of Group C strep and MRSA bacteremia, as well as E. Fecalis UTI with Urosepsis in the past. He suffered a cardiopulmonary arrest previously, necessitating a transfer to [facility] at which time he was treated for Choleycystitis, and as he was deemed not a surgical candidate was treated conservatively with a pigtail catheter that remains in place. His other medical history includes DM, Adrenal insufficiency secondary to chronic steroid use, RA, Crohn's disease s/p Colectomy, OA, CKD with prior JESUS and resultant hyperkalemia, HTN, CAD, hypothyroidism, Obesity, and chronic pain. He's had recurrent UTIs, and also has a history of a non-healing diabetic foot ulcer for which he has undergone debridement in the past with excision of the right toe without evidence of Osteo, chronically followed as an outpatient by Podiatry. He also suffers from frequent hyperkalemia, and was diagnosed with Atrial Flutter during a recent hospitalization, for which he is on chronic anticoagulation. The patient has also been treated for MRSA bacteremia on multiple prior occasions, including January of 2018, February, April, and June of 2018. He was ultimately found to have evidence of a right elbow septic arthritis, transferred to [facility], and underwent hardware removal in his elbow in June followed by a washout of the wound. He has undergone a subsequent 6 week total course of antibiotics. On 10/23 Mr. Corley was evaluated for onset of fever and mental status changes, with work-up that was significant for a mild leukocytis, low bicarb but essentially normal anion gap, elevated Creatinine mildly above baseline, negative CXR, and urinalysis with Large LE and >50 WBCs suspicious for a UTI. Procalcitonin was checked and elevated at 0.5. The patient was referred for admission for further evaluation and treatment. This morning he again reports improvement, and appers to be at baseline. Unfortunately his urine culture is not revealing, and being interpreted as potential contaminant. His leukocytosis has remained resolved, creatinine continues to improve, and he has remained afebrile. No reported overnight events. Exam Narrative Exam Narrative: General: Patient appears comfortable, AAOX3, NAD Skin: No evidence of cellulitis Neck: Supple CV: Regular, nontachycardic, S1S2, No rubs, murmurs, or gallops. Pulmonary: Clear to auscultation bilaterally, no crackles, wheezing, or rhonchi on exam limited by body habitus Abdomen: + Bowel Sounds, soft, nontender, nondistended. Obese in contour Vascular: +1 b/l lower extremity edema Musculoskeletal: Prior exam of wound on feet - clean and without cellulitic changes, induration, or fluctuance. Small areas of eschar formation centrally. Psych: Normal mood and affect. Objective Objective Clinical Data: Abnormal lab results 10/26/18 10/26/18 Range/Units 06:52 06:52 Hgb 10.2 L (13.5-17.5) g/dL Hct 32.2 L (40.0-50.0) % MCV 71.6 L (80-95) fL MCH 22.7 L (27.0-33.0) pg MCHC 31.7 L (32.0-36.0) g/dL RDW 17.3 H (11.8-14.1) % Absolute Neutrophils 8.08 H (1.2-6.7) k/cumm Absolute Lymphocytes 0.91 L (1.2-3.4) k/cumm Chloride 111 H (98-107) mmol/L Carbon Dioxide 18.5 L (21.0-32.0) mmol/L Anion Gap 11.5 H (3-11) mmol/L BUN 55 H (7-18) mg/dL Creatinine 2.37 H (0.70-1.30) mg/dL Glucose 239 H (70-100) mg/dL Magnesium 1.7 L (1.8-2.4) mg/dL Vital Signs Temperature 36.4 C L 10/26/18 07:30 Temperature Source Tympanic 10/26/18 07:30 Pulse 54 L 10/26/18 07:30 Pulse Rhythm Regular 10/26/18 08:30 Pulse 75 10/23/18 18:32 Respiratory Rate 19 10/26/18 07:30 Respiratory Effort Non-Labored 10/26/18 08:30 Respiratory Depth Normal 10/26/18 08:30 Respiratory Pattern Normal 10/26/18 08:30 Blood Pressure 152/75 H 10/26/18 07:30 Blood Pressure Mean 17 10/23/18 18:32 Blood Pressure Position Supine 10/23/18 15:23 Pulse Oximetry 97 10/26/18 07:30 Oxygen Delivery Method Room Air 10/26/18 07:30 Oxygen Flow Rate 0 10/26/18 07:30 Pain Level 0 10/26/18 07:30 Comment 10/25/18 14:05 Intake & Output 10/25/18 10/26/18 10/26/18 23:59 11:59 23:59 Intake Total 1420 / 2240 1080 / 1580 500 / 1580 Output Total 1800 / 2800 2290 / 2390 100 / 2390 Balance -380 / -560 -1210 / -810 400 / -810 Weight 94.2 kg Intake: IV 150 / 250 100 / 100 Oral 1270 / 1990 980 / 1480 500 / 1480 Output: Drainage 40 / 40 Right Upper Abdomen 40 / 40 Urine 1350 / 1750 1250 / 1350 100 / 1350 Stool 450 / 1050 1000 / 1000 Other: Urine Color Yellow Yellow Pale Yellow Straw Urine Appearance Clear Clear Clear Urine Odor Normal None Normal Voiding Methods Urinal Urinal Urinal Laboratory Results WBC 9.68 k/cumm (4.4-10.8) 10/26/18 06:52 RBC 4.50 m/cumm (4.50-6.00) 10/26/18 06:52 Hgb 10.2 g/dL (13.5-17.5) L 10/26/18 06:52 Hct 32.2 % (40.0-50.0) L 10/26/18 06:52 MCV 71.6 fL (80-95) L 10/26/18 06:52 MCH 22.7 pg (27.0-33.0) L 10/26/18 06:52 MCHC 31.7 g/dL (32.0-36.0) L 10/26/18 06:52 RDW 17.3 % (11.8-14.1) H 10/26/18 06:52 Plt Count 344 x1000/uL (130-400) 10/26/18 06:52 MPV 10.3 fL (8.0-11.0) 10/26/18 06:52 Immature Gran % 1.0 10/26/18 06:52 83.5 10/26/18 06:52 9.4 10/26/18 06:52 5.3 10/26/18 06:52 0.6 10/26/18 06:52 0.2 10/26/18 06:52 Absolute Neutrophils 8.08 k/cumm (1.2-6.7) H 10/26/18 06:52 Absolute Lymphocytes 0.91 k/cumm (1.2-3.4) L 10/26/18 06:52 Absolute Monocytes 0.51 k/cumm (0.11-0.7) 10/26/18 06:52 Absolute Eosinophils 0.06 k/cumm (0.0-0.7) 10/26/18 06:52 Absolute Basophils 0.02 k/cumm (0.0-0.2) 10/26/18 06:52 Rbc morph reviewed 10/25/18 07:02 RBC Morphology See below 10/25/18 07:02 Present 10/25/18 07:02 3+ 10/25/18 07:02 3+ 10/25/18 07:02 Present 10/25/18 07:02 2+ 10/25/18 07:02 3+ 10/25/18 07:02 2+ 10/23/18 15:42 PT 10.5 sec (9.3-11.0) 10/23/18 15:42 INR 1.1 (0.9-1.1) 10/23/18 15:42 APTT 26.6 sec (21.0-31.4) 10/23/18 15:42 Sodium 141 mmol/L (136-145) 10/26/18 06:52 Potassium 4.2 mmol/L (3.5-5.1) 10/26/18 06:52 Chloride 111 mmol/L (98-107) H 10/26/18 06:52 Carbon Dioxide 18.5 mmol/L (21.0-32.0) L 10/26/18 06:52 11.5 mmol/L (3-11) H 10/26/18 06:52 BUN 55 mg/dL (7-18) H 10/26/18 06:52 2.37 mg/dL (0.70-1.30) H 10/26/18 06:52 28.26 (mL/min/1.73m2) 10/26/18 06:52 Glucose 239 mg/dL (70-100) H 10/26/18 06:52 0.9 mmol/L (0.6-1.4) 10/24/18 07:01 Calcium 9.1 mg/dL (8.5-10.1) 10/26/18 06:52 Magnesium 1.7 mg/dL (1.8-2.4) L 10/26/18 06:52 0.2 mg/dL (0.2-1.0) 10/23/18 15:42 AST 8 U/L (15-37) L 10/23/18 15:42 ALT 20 U/L (16-63) 10/23/18 15:42 201 U/L (46-116) H 10/23/18 15:42 7.1 g/dL (6.4-8.2) 10/23/18 15:42 2.6 g/dL (3.4-5.0) L 10/23/18 15:42 0.4 ng/mL 10/24/18 07:01 Yellow (Yellow) 10/23/18 13:45 Cloudy (Clear) 10/23/18 13:45 5.5 (5-8) 10/23/18 13:45 Ur Specific [place] 1.015 (1.005-1.025) 10/23/18 13:45 30 mg/dL (Negative) H 10/23/18 13:45 Negative mg/dL (Negative) 10/23/18 13:45 Moderate (Negative) H 10/23/18 13:45 Negative (Negative) 10/23/18 13:45 Negative (Negative) 10/23/18 13:45 0.2 EU/dL (Up TO 0.2) 10/23/18 13:45 Ur Leukocyte Esterase Large (Negative) H 10/23/18 13:45 Not Applicable 10/23/18 13:45 >50 HPF (0-5) 10/23/18 13:45 Ur Epithelial Cells Not Applicable 10/23/18 13:45 Not Applicable 10/23/18 13:45 HPF (Negative) 10/23/18 13:45 Not Applicable 10/23/18 13:45 Ur Culture Indicated? Yes 10/23/18 13:45 Negative mg/dL (Negative) 10/23/18 13:45
[2018-10-26] MEDS: Furosemide 40 MG TAB PO (14:44)
--- NOTE | 2018-10-26 16:56 | NUR.NOTE ---
Nursing Note: Discussed getting out of bed to chair with patient. Provided education on why it's important; strength, pneumonia, circulation. Patient verbalized understanding and refused. Patient reports being too tired and wanting to sleep more today. Patient reports is willing to get out of bed tomorrow.
[2018-10-26 20:28] VITALS: BP 148/73; PULSE 57; RESP 18; TEMP 36.9; O2SAT 99
[2018-10-26] MEDS: Gabapentin 100 MG CAP 200 MG PO (21:55)
[2018-10-26] MEDS: traZODone 50 MG TAB PO (21:55)
[2018-10-26] MEDS: Melatonin 3 MG TAB 6 MG PO (21:55)
[2018-10-27 00:56] VITALS: BP 152/78; PULSE 50; RESP 16; TEMP 36.7; O2SAT 97
[2018-10-27] MEDS: Levothyroxine 25 MCG TAB PO (06:27)
[2018-10-27] MEDS: Hydrocortisone SOD SUC. 100 MG VIAL 50 MG IVP (06:27)
[2018-10-27] MEDS: Normal Saline Flush 10 ML SYR IVP (06:29)
[2018-10-27 07:26] LABS: Abs Immature Grans 0.15 k/cumm (0.0-0.09); Absolute Basophil Count 0.03 k/cumm (0.0-0.2); Absolute Eosinophil Count 0.14 k/cumm (0.0-0.7); Absolute Monocyte Count 0.61 k/cumm (0.11-0.7); Absolute Neutrophil Count 8.15 k/cumm (1.2-6.7); Basophils % 0.3; Eosinophils % 1.3; HGB 10.2 g/dL (13.5-17.5); Immature Grans % 1.4; Lymphocytes % 13.4; Mean Corp. HGB Concentration 31.9 g/dL (32.0-36.0); Mean Corpuscular Hemoglobin 22.7 pg (27.0-33.0); Mean Corpuscular Volume 71.1 fL (80-95); Mean Platelet Volume 10.1 fL (8.0-11.0); Monocytes % 5.8; Neutrophils % 77.8; Platelet Count 338 x1000/uL (130-400); RBC Distribution Width 17.5 % (11.8-14.1); White Blood Cell Count 10.48 k/cumm (4.4-10.8)
[2018-10-27 07:41] LABS: Anion Gap 10.4 mmol/L (3-11); BUN 60 mg/dL (7-18); CO2 21.6 mmol/L (21.0-32.0); CREATININE 2.08 mg/dL (0.70-1.30); Calcium 8.7 mg/dL (8.5-10.1); Chloride 108 mmol/L (98-107); Estimated GFR 32.85 (mL/min/1.73m2); Glucose 175 mg/dL (70-100); Magnesium 1.7 mg/dL (1.8-2.4); Potassium 3.4 mmol/L (3.5-5.1); Sodium 140 mmol/L (136-145)
[2018-10-27 07:54] VITALS: BP 150/80; PULSE 53; RESP 20; TEMP 36.5; O2SAT 98
[2018-10-27 08:01] LABS: Anisocytosis 2+; Diff Comment Diff Reviewed; Microcytosis 2+; Poikilocytes 2+; Polychromasia Present
[2018-10-27 08:05] LABS: Procalcitonin 0.1 ng/mL
[2018-10-27] MEDS: Terazosin 2 MG CAP 4 MG PO (08:56)
[2018-10-27] MEDS: Pantoprazole 40 MG TABCR PO (08:56)
[2018-10-27] MEDS: Folic Acid 1 MG TAB PO (08:57)
[2018-10-27] MEDS: Furosemide 40 MG TAB PO (08:57)
[2018-10-27] MEDS: Magnesium Chloride 64 MG TABCR PO (08:57)
[2018-10-27] MEDS: Multivitamin w/Minerals TAB 1 TAB PO (08:57)
[2018-10-27] MEDS: predniSONE 10 MG TAB PO (08:57)
[2018-10-27] MEDS: Cyanocobalamin 500 MCG TAB 1000 MCG PO (08:58)
[2018-10-27] MEDS: Insulin Glargine 300 UNITS/3 ML PEN 46 UNITS SC (08:58)
[2018-10-27] MEDS: Ascorbic Acid 500 MG TAB PO (08:58)
[2018-10-27] MEDS: amLODIPine 5 MG TAB PO (08:58)
[2018-10-27] MEDS: Sodium Bicarbonate 650 MG TAB PO (08:58)
[2018-10-27] MEDS: Apixaban 5 MG TAB PO (08:58)
[2018-10-27] MEDS: Lactobacillus Acidophilus CAP 1 CAP PO (08:58)
[2018-10-27] MEDS: Ferrous Sulfate 325 MG TAB PO (08:58)
[2018-10-27] MEDS: Insulin Aspart 300 UNITS/3 ML PEN SC ×4 (08:59→12:24)
[2018-10-27] MEDS: Venlafaxine 37.5 MG CAPCR 112.5 MG PO (10:04)
--- NOTE | 2018-10-27 11:03 | W.PM.DS.N ---
Date of service: 10/27/18 Time of Service: 11:04 DS: Diagnosis Discharge Diagnosis (1) Complicated UTI (urinary tract infection): Status: Ruled-out (2) Acute on chronic renal insufficiency: Status: Acute (3) Adrenal insufficiency: Status: Chronic (4) Atrial flutter, paroxysmal: Status: Chronic (5) Diabetes mellitus: Status: Chronic (6) Hypertension: Status: Chronic (7) Hypothyroidism: Status: Chronic (8) Advance directive on file: Status: Acute Discharge Plan Disposition Patient Disposition: HOME Condition: Stable Discharge Details Chief Complaint: Fever Clinical Impression: Bacteremia, Acute UTI, Chronic foot ulcer Reason For Visit: ACUTE FEBRILE ILLNESS Admit Date/Time: 10/26/18 08:50 Admit Provider: Manuel Fisher Attending Provider: Manuel Fisher Primary Care Provider: Anne Horowitz ED Provider: Dell Romo Hospital Course Hospital Course: Chief Complaint: Fever, Altered Mental Status HPI: 58 year old male resident of the [facility], with a prior history of recurrent MRSA Bacteremia, admitted on 10/23 from [facility] Emergency Department with a diagnosis of fever and altered mental status. Mr. Corley has been hospitalized here at [facility] with sepsis on numerous prior occasions. He has a history of Group C strep and MRSA bacteremia, as well as E. Fecalis UTI with Urosepsis in the past. He suffered a cardiopulmonary arrest previously, necessitating a transfer to [facility] at which time he was treated for Choleycystitis, and as he was deemed not a surgical candidate was treated conservatively with a pigtail catheter that remains in place. His other medical history includes DM, Adrenal insufficiency secondary to chronic steroid use, RA, Crohn's disease s/p Colectomy, OA, CKD with prior JESUS and resultant hyperkalemia, HTN, CAD, hypothyroidism, Obesity, and chronic pain. He's had recurrent UTIs, and also has a history of a non-healing diabetic foot ulcer for which he has undergone debridement in the past with excision of the right toe without evidence of Osteo, chronically followed as an outpatient by Podiatry. He also suffers from frequent hyperkalemia, and was diagnosed with Atrial Flutter during a recent hospitalization, for which he is on chronic anticoagulation. The patient has also been treated for MRSA bacteremia on multiple prior occasions, including January of 2018, February, April, and June of 2018. He was ultimately found to have evidence of a right elbow septic arthritis, transferred to [facility], and underwent hardware removal in his elbow in June followed by a washout of the wound. He has undergone a subsequent 6 week total course of antibiotics. On 10/23 Mr. Corley was evaluated for onset of fever and mental status changes, with work-up that was significant for a mild leukocytis, low bicarb but essentially normal anion gap, elevated Creatinine mildly above baseline, negative CXR, and urinalysis with Large LE and >50 WBCs suspicious for a UTI. Procalcitonin was checked and elevated at 0.5. The patient was referred for admission for further evaluation and treatment. This morning he again reports improvement, and appers to be at baseline. Unfortunately his urine culture is not revealing, and being interpreted as potential contaminant. His leukocytosis has remained resolved, creatinine continues to improve, and he has remained afebrile. As all of his culture data were negative and no source for infection was found, antibiotics were stopped, and Mr. Corley has remained afebrile over the last 24 hours. No reported overnight events. Hospital Course: (1) Fever No evidence of infection by Urine Culture results that show probable contaminated collection, with 10-50,000 mixed Gram + Tosin and <10,000 GNR. CXR negative, and blood cultures remain without growth. - Unsure of etiology for patient's fever and altered mental status. No evidence of skin or soft tissue infection, and foot wounds were closely inspected and appear clean. No fevers despite discontinued antibiotics. Repeat Procalcitonin this morning down to 0.1 from an original value of 0.5, in patient on immunosuppression and chronic steroids. Will recommend a slow steroid taper (40mg daily X3 days, 30mg daily X3 days, 20mg daily X3 days) followed by resumption of once daily 10mg prednisone dosing. Consider potential viral etiology as well. - Please also note that per Mr. Corley his Cholecystostomy tube has not had as much output over the last week as it normally does. The apparatus was found to be suboptimally functioning and adjusted - appears that the tube and bag may have been clogged, and has been draining well since being flushed. He has had no RUQ pain, initial ALT/AST were not elevated, and alk phos appears at his baseline (which is slightly above normal). He has also had no further fevers off antibiotic therapy. (2) Acute on chronic renal insufficiency: Appears improved with gentle IVF resuscitation, with creatinined improvement in creatinine. Ensure Low potassium diet long-term. Monitor renal function and electrolytes as outpatient. (3) Adrenal insufficiency: Plan on slow steroid wean back to baseline dose. (4) Atrial flutter, paroxysmal: No current hamzah agents as patient does develop bradycardia easily. Appears to be in sinus currently, but often bradycardic. Consider change from Clonidine in the future. Continue anticoagulation with apixaban. (5) Diabetes mellitus: Continue basal insulin, sliding scale coverage, and ADA diet. Blood Sugars elevated in the setting of stress dosed steroid use. (6) Hypertension: Currently on CCB, Clonidine, and Terazosin. Monitor blood pressure. (7) Hypothyroidism: Continue Replacement therapy. (8) Advance directive on file: Full Code. (9) Disposition: Back to the [facility] today. Home Meds and New Rx's Prescriptions: New prednisone 10 mg Tablet 10 mg PO DAILY Qty: 0 RF: 0 prednisone 10 mg tablet 10 mg PO DAILY Qty: 27 RF: 0 Continued loperamide 2 mg Capsule 2 mg PO QID PRNRF: 0 cyanocobalamin (vitamin B-12) 1,000 mcg Tablet 1,000 mcg PO DAILY RF: 0 folic acid 1 mg Tablet 1 mg PO DAILY RF: 0 ferrous sulfate 325 mg (65 mg iron) Tablet 325 mg PO BID Qty: 0 RF: 0 ascorbic acid (vitamin C) [Vitamin C] 250 mg Tablet 1 tab PO BID RF: 0 Centrum Complete 18-400 mg-mcg Tablet 1 tab PO DAILY RF: 0 acidophilus-pectin, citrus 25 million cell -100 mg Tablet 1 cap PO TID Qty: 0 RF: 0 trazodone 50 mg Tablet 50 mg PO HS Qty: 30 RF: 0 levothyroxine 25 mcg Tablet 25 mcg PO DAILY@0600 Qty: 30 RF: 0 ipratropium-albuterol 0.5 mg-3 mg(2.5 mg base)/3 mL Solution For Nebulization 3 ml UPD Q6H PRN PRNQty: 1 RF: 0 gabapentin 100 mg Capsule 100 mg PO TID Qty: 90 RF: 0 fluticasone propionate 50 mcg/actuation [place],Suspension 0 g NS DAILY Qty: 1 RF: 0 Eliquis 5 mg Tablet 5 mg PO BID Qty: 60 RF: 0 Novolog Flexpen U-100 Insulin 100 unit/mL Insulin Pen See Rx Instructions .ROUTE .COMPLEX Qty: 15 RF: 0 pantoprazole 40 mg Tablet,Delayed Release (Dr/Ec) 40 mg PO DAILY Qty: 60 RF: 0 melatonin 3 mg Tablet Extended Release 6 mg PO HS Qty: 30 RF: 0 sodium bicarbonate 650 mg Tablet 650 mg PO TID Qty: 90 RF: 0 trimethobenzamide 300 mg Capsule 300 mg PO TID PRN PRN (Reason: Nausea) Qty: 30 RF: 0 calcium carbonate-vitamin D3 [Calcium 500 + D] 500 mg(1,250mg) -400 unit Tablet 1 tab PO BID RF: 0 oxycodone 5 mg capsule 5 mg PO Q8H RF: 0 Lantus Solostar U-100 Insulin 100 unit/mL (3 mL) insulin pen 46 unit subcut BID RF: 0 furosemide 40 mg Tablet 40 mg PO DAILY Qty: 0 RF: 0 prednisone 10 mg Tablet 10 mg PO DAILY Qty: 0 RF: 0 amlodipine 5 mg Tablet 5 mg PO DAILY Qty: 0 RF: 0 clonidine HCl [Catapres] 0.1 mg Tablet 0.1 mg PO TID Qty: 0 RF: 0 acetaminophen [Tylenol] 325 mg Tablet 325 - 650 mg PO Q4H PRN PRNQty: 0 RF: 0 terazosin 2 mg Capsule 4 mg PO BID Qty: 0 RF: 0 hydroxyzine HCl 25 mg Tablet 25 mg PO Q6H PRN PRN (Reason: Itching) Qty: 0 RF: 0 magnesium chloride [Mag 64] 64 mg Tablet,Delayed Release (Dr/Ec) 64 mg PO BID Qty: 0 RF: 0 venlafaxine [Effexor XR] 37.5 mg Capsule,Extended Release 24hr 112.5 mg PO DAILY RF: 0 Discharge Instructions Activity:: No Strenuous Activity Equipment/Supplies:: No Equipment Needed Diet:: ADA, low potassium renal diet Discharge Orders Discharge Orders: Discharge Order (Routine); Ordered 10/27/18 Ordered By: Ariel Bravo DS: Data Vitals/I&O Vitals and I&O: Vital Signs Temperature 36.5 C 10/27/18 07:54 Temperature Source Temporal Artery Scan 10/27/18 07:54 Pulse 53 L 10/27/18 07:54 Pulse Rhythm Regular 10/27/18 04:22 Pulse 75 10/23/18 18:32 Respiratory Rate 20 10/27/18 07:54 Respiratory Effort 10/26/18 20:12 Respiratory Depth Normal 10/26/18 20:12 Respiratory Pattern Normal 10/26/18 20:12 Blood Pressure 150/80 H 10/27/18 07:54 Blood Pressure Mean 17 10/23/18 18:32 Blood Pressure Position Supine 10/23/18 15:23 Pulse Oximetry 98 10/27/18 07:54 Oxygen Delivery Method Room Air 10/27/18 07:54 Oxygen Flow Rate 0 10/27/18 07:54 Pain Level 0 10/27/18 07:54 Comment 10/25/18 14:05 Intake & Output 10/26/18 10/26/18 10/27/18 11:59 23:59 11:59 Intake Total 1080 / 2080 1000 / 2080 250 / 250 Output Total 2290 / 4625 2335 / 4625 1250 / 1250 Balance -1210 / -2545 -1335 / -2545 -1000 / -1000 Weight 94.2 kg Intake: IV 100 / 110 10 / 110 10 / 10 Oral 980 / 1960 980 / 1960 240 / 240 Injectate 10 / 10 Right Upper Abdomen 10 / 10 Output: Drainage 40 / 215 175 / 215 150 / 150 Right Upper Abdomen 40 / 215 175 / 215 150 / 150 Urine 1250 / 3010 1760 / 3010 600 / 600 Stool 1000 / 1400 400 / 1400 500 / 500 Other: Urine Color Yellow Yellow Pale Yellow Straw Urine Appearance Clear Clear Clear Urine Odor None Normal Normal Stool Size Large Stool Characteristics Liquid Voiding Methods Urinal Urinal Urinal Completed studies during hospitalization [Text1]: EXAM: XR Chest, 1 View EXAM DATE/TIME: 10/23/2018 3:31 PM CLINICAL HISTORY: 58 years old, male; Fever TECHNIQUE: Imaging protocol: XR of the chest, 1 view. COMPARISON: CR XR CHEST 2V PA LATERAL 07/09/2018 9:42 AM FINDINGS: Lungs: Unremarkable. No consolidation. Pleural space: Unremarkable. No pleural effusion. No pneumothorax. Heart/Mediastinum: Unremarkable. No cardiomegaly. Bones/joints: Unremarkable. IMPRESSION: No acute findings. Labs on day of discharge: Labs from last 24 hours 09/03/19 09/03/19 09/03/19 07:00 07:00 07:00 WBC 10.48 RBC 4.50 Hgb 10.2 L Hct 32.0 L MCV 71.1 L MCH 22.7 L MCHC 31.9 L RDW 17.5 H Plt Count 338 MPV 10.1 Immature Gran % 1.4 Neutrophils % 77.8 Lymphocytes % 13.4 Monocytes % 5.8 Eosinophils % 1.3 Basophils % 0.3 Absolute Neutrophils 8.15 H Absolute Lymphocytes 1.40 Absolute Monocytes 0.61 Absolute Eosinophils 0.14 Absolute Basophils 0.03 Differential Comment Diff reviewed RBC Morphology See below Polychromasia Present Poikilocytosis 2+ Anisocytosis 2+ Microcytosis 2+ Sodium 140 Potassium 3.4 L Chloride 108 H Carbon Dioxide 21.6 Anion Gap 10.4 BUN 60 H Creatinine 2.08 H Estimated GFR/1.73 m2 32.85 Glucose 175 H Calcium 8.7 Magnesium 1.7 L Procalcitonin 0.1 Preliminary micro results at discharge 10/23/18 16:08 Blood Culture - Preliminary Blood NO GROWTH 72 HOURS 10/23/18 14:00 Blood Culture - Preliminary Blood NO GROWTH 72 HOURS Urine Culture Final 10/25/18-1246 Day 1 Result ISOLATES BELOW ISOLATE 1 COLONY COUNT 10,000 - 50,000 COLONIES/ML ISOLATE 1 APPEARANCE Mixed Gram Positive Tosin ISOLATE 2 COLONY COUNT <10,000 COLONIES/ML ISOLATE 2 APPEARANCE Gram Negative Moses Day 2 Result ISOLATES BELOW ISOLATE 1 COLONY COUNT 10,000 - 50,000 COLONIES/ML ISOLATE 1 APPEARANCE Mixed Gram Positive Tosin ISOLATE 2 COLONY COUNT <10,000 COLONIES/ML ISOLATE 2 APPEARANCE Gram Negative Moses Probable contaminated collection Organism 1 GRAM POSITIVE TOSIN,MIXED COLONY COUNT 10,000 - 50,000 COLONIES/ML Organism 2 GRAM NEGATIVE MOSES COLONY COUNT <10,000 COLONIES/ML [facility] Medical History (Updated 10/26/18 @ 14:16 by Ariel Bravo MD) Acromegaly (Chronic) Acute on chronic kidney failure (Resolved) Adrenal insufficiency (Chronic) Ambulatory dysfunction (Chronic) Anemia (Chronic) Atrial flutter, paroxysmal (Chronic) Back pain (Chronic 06/21/13) CAD (coronary artery disease) (Chronic) Cardiopulmonary arrest with successful resuscitation (Resolved) Cholelithiasis (Chronic) Chronic anxiety (Chronic) Chronic bipolar disorder (Chronic) a. With history of psychosis. Chronic cholecystitis (Chronic) Chronic insomnia (Chronic) Chronic pain (Chronic) On both Methadone and Fentanyl as well as Ultram and Naproxen. CKD (chronic kidney disease) (Chronic) Complicated UTI (urinary tract infection) (Resolved) Diabetes mellitus (Chronic) Diabetic foot ulcer (Acute) Diabetic ulcer of toe associated with diabetes mellitus due to underlying condition, with bone involvement without evidence of necrosis (Inactive) 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 (Resolved) Dyslipidemia (Chronic) Elevated troponin I level (Resolved) Endocarditis due to Staphylococcus (Resolved) Heme positive stool (Resolved) Hemorrhagic cystitis (Chronic) Hyperkalemia (Resolved) Hypertension (Chronic) Hypomagnesemia (Chronic) Hypothyroidism (Chronic) Impaired mobility and ADLs (Chronic) Inability to get out of bed (Chronic 06/21/13) Lactic acidosis (Resolved) MRSA bacteremia (Resolved) Obesity (Chronic) a. Obesity though he has had significant weight loss since last seen. Osteoarthritis of both knees (Chronic) Severe. a. [id number] bilateral knees. 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 2 diabetes mellitus (Resolved) Palliative care encounter (Chronic) DObbertin Pedal edema (Chronic) Poor self care (Chronic 06/21/13) Poorly controlled type 2 diabetes mellitus with circulatory disorder (Chronic) Pulmonary hypertension (Chronic) Rheumatoid arthritis (Chronic) Sepsis (Resolved) Septic arthritis of elbow, right (Inactive) Toxic metabolic encephalopathy (Resolved) Toxic metabolic encephalopathy (Resolved) Ulcerative colitis (Chronic) UTI (urinary tract infection) (Resolved) UTI (urinary tract infection) due to Enterococcus (Resolved) Surgical History Arthroplasty of knee (Resolved 03/18/12) irrigation and lavage right Fracture, Open Treatment (Resolved) 06/06/17[place] S/P ORIF RIGHT DISTAL HUMERUS FRACTURE History of insertion of T-tube into biliary tract (Chronic) S/P colectomy (Chronic) Social History Smoking/Tobacco Use Status: Former Tobacco Use Alcohol Intake: former Drug use: Rarely Substance use type: marijuana Housing: shelter Do you feel safe at home: Yes
--- NOTE | 2018-10-27 11:05 | PT.INTREAT ---
Date of service: 10/27/18 Time of Service: 11:05 PT Notes 10/27/18 SUBJECTIVE: Brendan stating he is feeling pretty good. He is walking 75' at the [place] 4-5x per week although he does not feel up to walking that much. He notes he needs his shoes on to walk. OBJECTIVE: Supine in bed. Agreeable to PT treatment. TRANSFERS Supine to sit: I Sit to supine: I Sit to stand: I Stand to sit: I GAIT Device: FWW Weight bearing: Full Assist: CGA Distance: 5'+10' Deviation: Post op shoe on the right, sneaker on the left. THEREX: Seated LE strengthening exercises performed as noted on flow sheet. See flow sheet. ASSESSMENT: Pt transfers well independently from supine to sit. Only performs short distance gait today without LOB noted. PLAN: Continue per POC. Treatment time: 25' [id number], [id number] Raquel Rashid PTA Clinic location: [facility] [place], [place]
--- NOTE | 2018-10-27 11:40 | CMDISCH_ITS ---
LACE Index Scoring Tool - Questions: Length of Stay (in days): 4 - 6 Acuity (Admit via E.D.?): Yes Comorbidities: Diabetes w/o Complication, Liver or Renal Disease E.D. Visits: 11 - Answers: Total Score: 16 Risk of Readmission: High Risk Care Management Discharge Reason for Hospitalization: UTI Discharge Plan: Brendan will be discharged back to the [facility] when he is medically ready. He will transport via [facility] W[facility] Van coordinated by this advertising copy writer. Patient/Family Education Needs: Review of discharge instructions, discuss Ask Me Three. Services Needed at Discharge: Senior Living Facility ([facility] ), Transportation ([facility] coordinated by CM )
[2018-10-27 11:53] VITALS: BP 155/78; PULSE 51; RESP 18; TEMP 36.8; O2SAT 98
== END 2018-10-27 13:10 | disposition home or self-care (01) | DRG 864 ==
LOC: ER 18:22 → MS 19:32
PROVIDERS: Admitting Provider Internal Medicine; Emergency Provider Student in an Organized Health Care Education/Training Program; PCP Family Medicine; Visit Provider Internal Medicine
DX: R50.9 Fever, unspecified (principal); N17.9 Acute kidney failure, unspecified; T85.698A Other mechanical complication of other specified internal prosthetic devices, implants and grafts, initial encounter; E27.3 Drug-induced adrenocortical insufficiency; I48.92 Unspecified atrial flutter; K50.90 Crohn's disease, unspecified, without complications; R41.82 Altered mental status, unspecified; D72.829 Elevated white blood cell count, unspecified; N18.9 Chronic kidney disease, unspecified; E11.22 Type 2 diabetes mellitus with diabetic chronic kidney disease; I12.9 Hypertensive chronic kidney disease with stage 1 through stage 4 chronic kidney disease, or unspecified chronic kidney disease; T38.0X5D Adverse effect of glucocorticoids and synthetic analogues, subsequent encounter; Z79.52 Long term (current) use of systemic steroids; Z79.4 Long term (current) use of insulin; E03.9 Hypothyroidism, unspecified; Z79.01 Long term (current) use of anticoagulants; M06.9 Rheumatoid arthritis, unspecified; I25.10 Atherosclerotic heart disease of native coronary artery without angina pectoris; G89.29 Other chronic pain; Z86.14 Personal history of Methicillin resistant Staphylococcus aureus infection; Z86.19 Personal history of other infectious and parasitic diseases; Z87.440 Personal history of urinary (tract) infections; Z90.49 Acquired absence of other specified parts of digestive tract
CPT/HCPCS: 36415; 80048; 80053; 82947; 84145; 87040; 87081; 96361; 96365; 96366; 96367; 97110; 97162; 97530; 99223; 99232; 99233; 99239; 99285; 71045; 81003; 81015; 83605; 83735; 85025; 85610; 85730; 87086; 99220; 99225; 99226; 99284; G0378; J1720; J3370; J3490; J7512

== ENCOUNTER 2018-10-23 15:50 | Outpatient (REF) | payer MEDICARE, MEDICAID, SELFPAY ==
[2018-10-23 16:42] LABS: Ammonia 19 umol/L (11-32)
[2018-10-23 16:47] LABS: C-Reactive Protein 1.93 mg/dL (0.0-0.3)
--- NOTE | 2018-11-02 08:42 | PT.INDS ---
Date of service: 11/02/18 PT Notes Inpatient Physical Therapy Discharge Summary Dates: 10/30/2018 Dates of Service: 10/26/2018 through 10/27/2018 This is a clinical summary of care provided on the duration of dates listed above. No charge was made in the completion of this documentation. Nona Pena PT, DPT, CLT [facility] Referring Doctor: Ariel Bravo MD PT Orders: PT CONSULT: Eval/treat Precautions: Fall. [place]. Patient Profile/Admitting Diagnosis: 58 year old man resident of the [facility], with a prior history of recurrent MRSA Bacteremia, being admitted to [facility] secondary to UTI. PMHX: 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 (Acute),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),Pulmonary hypertension (Chronic) Toxic metabolic encephalopathy (Resolved),Chronic cholecystitis (Chronic), 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 2 diabetes mellitus (Ruled-out), MRSA bacteremia (Acute) Ambulatory dysfunction (Chronic), Diabetic foot ulcer (Chronic), Poorly controlled type 2 diabetes mellitus with circulatory disorder (Chronic) Adrenal insufficiency (Chronic), CKD (chronic kidney disease) (Chronic),Heme positive stool (Chronic), History of sepsis, Pedal edema (Chronic) Chronic insomnia (Chronic),Hypertension (Chronic), Chronic pain (Chronic), Hypothyroidism (Chronic), Obesity (Chronic), Back pain (Chronic 06/21/13) Poor self care (Chronic 06/21/13), Chronic bipolar disorder (Chronic),CAD (coronary artery disease) (Chronic), Dyslipidemia (Chronic), Rheumatoid arthritis (Chronic) Osteoarthritis of both knees (Chronic), Cholelithiasis (Chronic), Impaired mobility and ADLs (Chronic), Hemorrhagic cystitis (Inactive), Anemia (Chronic),Chronic anxiety (Chronic) Ulcerative colitis (Chronic) PSH: History of insertion of T-tube into biliary tract (Chronic) S/P colectomy (Chronic) Arthroplasty of knee (Resolved 03/18/12) Fracture, Open Treatment (Resolved) Social History/Home Situation: Patient is a resident of the [facility]. Patient states that prior to his admission patient states that he was able to walk short distances wheeled walker with his diabetic shoes. He does not have his diabetic shoes with him and requests to hold off on any walking activities. Primarily utilizes a wheelchair for community ambulation purposes peer Current Functional Limitations: Patient requires assistance with all mobility ADL performance Equipment Owned/DME: Wheelchair, front-wheeled walker Subjective: NT Objective: General Observation: NT Pain: NT ROM: Right Upper Extremity: Shoulder flexion 60 degrees. Minimal elbow range of motion. Left Upper Extremity: Shoulder flexion 60 degrees. Elbow motion is within functional limits. Right Lower Extremity: Hip flexion 100 degrees active. Patient has approximately 10 degree knee flexion contracture. Demonstrates ankle dorsiflexion to 5 degrees beyond neutral. Left Lower Extremity: Hip flexion 95 degrees active. Patient has approximately 15 degree knee flexion contracture. Demonstrates ankle dorsiflexion to 5 degrees beyond neutral. STRENGTH: Right Upper Extremity: Shoulder flexion 3/5. Client Technical Support Associate is weak. Left Upper Extremity: Shoulder flexion 3+/5. Biceps 4-/5. Triceps 4-/5. Client Technical Support Associate is weak. Right Lower Extremity: Hip flexion 4/5. Quads 4-/5. Hamstrings 3+/5. Ankle dorsiflexors 2-/5. Left Lower Extremity: Hip flexion 4/5. Quads 3+/5. Hamstrings 3+/5. Ankle dorsiflexiors 2-/5. Bed Mobility/Transfers: Brendan was able to I sit from supine position to side of bed. He was also I with sit to supine with HOB 30 degrees NT. Patient did sit to stand with min assist x1 to a front wheeled walker. Used a rocking technique required 3-4 attempts before achieving position. He stood for approximately 2 minutes while his bed was being made up. Patient reports that Dr. Motta does not want him standing or walking without them. Balance: Static Sitting Normal, Dynamic Sitting Normal, Standing balance poor. Patient refused any out of bed activities other than standing waiting for his bed to be made up. Assessment: Patient is a 58-year-old man resident of the [facility], with a prior history of recurrent MRSA Bacteremia, being admitted secondary to UTI. Patient continues to present with clinical signs and symptoms consistent with reduced mobility related to acute medical issues. Patient does have chronic mobility deficits, and resides in a long-term care facility, where he requires assistance with all ambulation and self-care. PT goals will be targeted at maximizing patient's mobility and strength to allow for safe transition back to long-term care facility. He currently demonstrates the following impairment level findings: 1. Decreased lower extremity strength 2. Decreased upper extremity strength 3. Decreased activity tolerance 4. Decreased range of motion bilateral knees and hands 5. Decreased balance skills Impairments are contributing to the following functional limitations: 1. Unable to perform ambulation 2. Patient requiring assistance with bed mobility 3. Decreased activity tolerance 4. Decreased safety with transfers 5. Dependence with transfer task performance Goals: Goals X1 week 1. Supine-Sit independent 2. Sit-Supine independent 3. Sit-Stand SBA 4. Stand-Sit S 5. Bed-Chair CGA with FWW 6. Chair-Bed CGA with FWW 7. SBA gait on level surface with use of least restrictive device for at least 50 feet without report of pain 8. Good static and dynamic standing balance/tolerance DISCHARGE RECOMMENDATIONS: Return to the [facility] when medically stable. Will highly benefit from continued skilled PT services at the SNF to establish a functional program and reduce fall risk. TREATMENT CODE/TIME: NC. Thank you for this referral. Thank you very much for this referral. Nona Pena PT, DPT, CLT [facility]
== END 2018-10-23 16:10 ==
LOC: LBN 15:50
PROVIDERS: Visit Provider Family Medicine
DX: R50.9 Fever, unspecified (principal); R41.82 Altered mental status, unspecified
CPT/HCPCS: 80053; 82140; 83605; 86140

== ENCOUNTER 2019-01-08 08:43 | Inpatient (IN) | payer MEDICARE, MEDICAID, SELFPAY ==
[2019-01-08] VITALS (35 sets, daily range): BP systolic 125–161; BP diastolic 59–82; PULSE 64–117; RESP 1–40; TEMP 36.3–39.8; O2SAT 84–100
--- NOTE | 2019-01-08 08:58 | ED.GENADUL_ITS ---
Discharge Plan Disposition Patient Disposition: [facility] INPATIENT Condition: Stable Discharge Details Chief Complaint: SOB Clinical Impression: Pneumonia Primary Care Provider: Anne Horowitz ED Provider: Calderon Del Cid Home Meds and New Rx's Prescriptions: No Action loperamide 2 mg Capsule 2 mg PO QID PRNRF: 0 cyanocobalamin (vitamin B-12) 1,000 mcg Tablet 1,000 mcg PO DAILY RF: 0 folic acid 1 mg Tablet 1 mg PO DAILY RF: 0 ferrous sulfate 325 mg (65 mg iron) Tablet 325 mg PO BID Qty: 0 RF: 0 ascorbic acid (vitamin C) [Vitamin C] 250 mg Tablet 1 tab PO BID RF: 0 Centrum Complete 18-400 mg-mcg Tablet 1 tab PO DAILY RF: 0 acidophilus-pectin, citrus 25 million cell -100 mg Tablet 1 cap PO TID Qty: 0 RF: 0 trazodone 50 mg Tablet 50 mg PO HS Qty: 30 RF: 0 levothyroxine 25 mcg Tablet 25 mcg PO DAILY@0600 Qty: 30 RF: 0 ipratropium-albuterol 0.5 mg-3 mg(2.5 mg base)/3 mL Solution For Nebulization 3 ml UPD Q6H PRN PRNQty: 1 RF: 0 fluticasone propionate 50 mcg/actuation [place],Suspension 0 g NS DAILY Qty: 1 RF: 0 Eliquis 5 mg Tablet 5 mg PO BID Qty: 60 RF: 0 Novolog Flexpen U-100 Insulin 100 unit/mL Insulin Pen See Rx Instructions .ROUTE .COMPLEX Qty: 15 RF: 0 pantoprazole 40 mg Tablet,Delayed Release (Dr/Ec) 40 mg PO DAILY Qty: 60 RF: 0 melatonin 3 mg Tablet Extended Release 6 mg PO HS Qty: 30 RF: 0 sodium bicarbonate 650 mg Tablet 650 mg PO TID Qty: 90 RF: 0 trimethobenzamide 300 mg Capsule 300 mg PO TID PRN PRN (Reason: Nausea) Qty: 30 RF: 0 calcium carbonate-vitamin D3 [Calcium 500 + D] 500 mg(1,250mg) -400 unit Tablet 1 tab PO BID RF: 0 oxycodone 5 mg capsule 10 mg PO BID RF: 0 Lantus Solostar U-100 Insulin 100 unit/mL (3 mL) insulin pen 48 unit subcut BID RF: 0 furosemide 40 mg Tablet 40 mg PO DAILY Qty: 0 RF: 0 prednisone 10 mg Tablet 10 mg PO DAILY Qty: 0 RF: 0 amlodipine 5 mg Tablet 5 mg PO DAILY Qty: 0 RF: 0 clonidine HCl [Catapres] 0.1 mg Tablet 0.1 mg PO TID Qty: 0 RF: 0 risperidone [Risperdal] 2 mg Tablet 2 mg PO DAILY RF: 0 acetaminophen [Tylenol] 325 mg tablet 1,000 mg PO TID RF: 0 gabapentin 100 mg capsule 300 mg PO TID RF: 0 terazosin 2 mg Capsule 4 mg PO BID Qty: 0 RF: 0 hydroxyzine HCl 25 mg Tablet 25 mg PO Q6H PRN PRN (Reason: Itching) Qty: 0 RF: 0 magnesium chloride [Mag 64] 64 mg Tablet,Delayed Release (Dr/Ec) 64 mg PO BID Qty: 0 RF: 0 venlafaxine [Effexor XR] 37.5 mg Capsule,Extended Release 24hr 112.5 mg PO DAILY RF: 0 prednisone 10 mg Tablet 10 mg PO DAILY Qty: 0 RF: 0 prednisone 10 mg tablet 10 mg PO DAILY Qty: 27 RF: 0 Medical Decision Making 58-year-old male resident of long term presents with cough and fever this morning. He arrives a temperature of 38.4, mild tachycardia 114 but normal blood pressure. Reported to have low oxygen at the long term, now 90% on room air, improving with supplemental oxygen and 93-943% on 4-5L. Given acetaminophen, DuoNeb updraft and parenteral steroids. Referred for chest x-ray, EKG, laboratory testing with lactate and blood cultures as well as urinalysis. Fluids initiated. White blood cell count is elevated at 14, hematocrit 34, platelets 335. Patient with known chronic renal insufficiency and today's BUN is 28, creatinine 2.2. Normal lactate and troponin. Chest x-ray reveals bilateral infiltrates, and hilar fullness. Recommendation for repeat chest x-ray following resolution of symptoms. Blood cultures obtained. Antibiotic coverage for healthcare associated pneumonia initiated with cefepime. Stress dose steroids initiated with hydrocortisone. Case discussed with Dr. Bravo and patient to be admitted. Lab Data Lab results reviewed: Yes I reviewed the patient's lab results. Labs: Laboratory Results - last 24 hr 01/08/19 01/08/19 01/08/19 09:07 09:07 09:07 WBC 14.18 H RBC 4.39 L Hgb 9.8 L Hct 34.7 L MCV 79.0 L MCH 22.3 L MCHC 28.2 L RDW 14.8 H Plt Count 335 MPV 9.6 Immature Gran % 0.3 Neutrophils % 88.0 Lymphocytes % 3.5 Monocytes % 6.1 Eosinophils % 1.9 Basophils % 0.2 Absolute Neutrophils 12.48 H Absolute Lymphocytes 0.50 L Absolute Monocytes 0.86 H Absolute Eosinophils 0.27 Absolute Basophils 0.03 Sodium 145 Potassium 4.0 Chloride 108 H Carbon Dioxide 32.4 H Anion Gap 4.6 BUN 28 H Creatinine 2.26 H Estimated GFR/1.73 m2 29.85 Glucose 304 H Lactate 1.2 Calcium 8.7 Total Bilirubin 0.2 AST 10 L ALT 13 L Alkaline Phosphatase 138 H Troponin I < 0.05 Total Protein 7.0 Albumin 2.4 L ECG Data Attestation: I personally reviewed and interpreted this ECG (s) as follows: Interpretation: A. fib flutter with a rate of 118, the QRS is narrow and there is no ST segment elevation HPI General Mode of arrival: ambulatory . Date/Time Provider Initiated Documentation: 01/08/19 08:45 . Limitations to Documentation: no limitations . Information obtained by: patient . History of Present Illness 58 year old M presents to the emergency department with the chief complaint of Shortness of breath and hypoxia with fever, described as moderate, and is localized to the chest. Patient reports no radiation. Patient started experiencing this hour(s) and it has been constant. No relieving factors improve symptom(s), No exacerbating factors reported . Patient notes cough, fever/chills and shortness of breath; denies chest pain. Patient did receive the following treatments prior to arrival, none Related Data Home Medications Medication Instructions Recorded Confirmed cyanocobalamin (vitamin B-12) 1,000 mcg PO DAILY 12/23/17 01/08/19 folic acid 1 mg PO DAILY 12/23/17 01/08/19 loperamide 2 mg PO QID PRN 12/23/17 10/23/18 ferrous sulfate 325 mg PO BID #0 tab 12/31/17 01/08/19 hydroxyzine HCl 25 mg PO Q6H PRN PRN #0 tab 02/10/18 10/23/18 magnesium chloride [Mag 64] 64 mg PO BID #0 tab 02/10/18 01/08/19 terazosin 4 mg PO BID #0 cap 02/10/18 01/08/19 Centrum Complete 1 tab PO DAILY 03/01/18 01/08/19 ascorbic acid (vitamin C) [Vitamin 1 tab PO BID 03/01/18 01/08/19 C] acidophilus-pectin, citrus 1 cap PO TID #0 tab 03/24/18 01/08/19 trazodone 50 mg PO HS #30 tab 05/06/18 01/08/19 Eliquis 5 mg PO BID #60 tab 06/19/18 01/08/19 Novolog Flexpen U-100 Insulin See Rx Instructions .ROUTE 06/19/18 01/08/19 .COMPLEX #15 ml fluticasone propionate 0 g NS DAILY #1 g 06/19/18 01/08/19 ipratropium-albuterol 3 ml UPD Q6H PRN PRN #1 startr pk 06/19/18 01/08/19 levothyroxine 25 mcg PO DAILY@0600 #30 tab 06/19/18 01/08/19 melatonin 6 mg PO HS #30 tab 06/19/18 01/08/19 pantoprazole 40 mg PO DAILY #60 tab 06/19/18 01/08/19 sodium bicarbonate 650 mg PO TID #90 tab 06/19/18 01/08/19 trimethobenzamide 300 mg PO TID PRN PRN #30 cap 06/19/18 10/23/18 Lantus Solostar U-100 Insulin 48 unit SUBCUT BID 07/09/18 01/08/19 calcium carbonate-vitamin D3 1 tab PO BID 07/09/18 01/08/19 [Calcium 500 + D] oxycodone 10 mg PO BID 07/09/18 01/08/19 amlodipine 5 mg PO DAILY #0 tab 07/23/18 01/08/19 clonidine HCl [Catapres] 0.1 mg PO TID #0 tab 07/23/18 01/08/19 furosemide 40 mg PO DAILY #0 tab 07/23/18 01/08/19 prednisone 10 mg PO DAILY #0 tab 07/23/18 10/23/18 venlafaxine [Effexor XR] 112.5 mg PO DAILY 10/23/18 01/08/19 prednisone 10 mg PO DAILY #0 tab 10/27/18 prednisone 10 mg PO DAILY #27 tab 10/27/18 01/08/19 acetaminophen [Tylenol] 1,000 mg PO TID 01/08/19 01/08/19 gabapentin 300 mg PO TID 01/08/19 01/08/19 risperidone [Risperdal] 2 mg PO DAILY 01/08/19 01/08/19 Previous Rx's Medication Instructions Recorded ferrous sulfate 325 mg PO BID #0 tab 12/31/17 hydroxyzine HCl 25 mg PO Q6H PRN PRN #0 tab 02/10/18 magnesium chloride [Mag 64] 64 mg PO BID #0 tab 02/10/18 terazosin 4 mg PO BID #0 cap 02/10/18 acidophilus-pectin, citrus 1 cap PO TID #0 tab 03/24/18 trazodone 50 mg PO HS #30 tab 05/06/18 Eliquis 5 mg PO BID #60 tab 06/19/18 Novolog Flexpen U-100 Insulin See Rx Instructions .ROUTE 06/19/18 .COMPLEX #15 ml fluticasone propionate 0 g NS DAILY #1 g 06/19/18 ipratropium-albuterol 3 ml UPD Q6H PRN PRN #1 startr pk 06/19/18 levothyroxine 25 mcg PO DAILY@0600 #30 tab 06/19/18 melatonin 6 mg PO HS #30 tab 06/19/18 pantoprazole 40 mg PO DAILY #60 tab 06/19/18 sodium bicarbonate 650 mg PO TID #90 tab 06/19/18 trimethobenzamide 300 mg PO TID PRN PRN #30 cap 06/19/18 amlodipine 5 mg PO DAILY #0 tab 07/23/18 clonidine HCl [Catapres] 0.1 mg PO TID #0 tab 07/23/18 furosemide 40 mg PO DAILY #0 tab 07/23/18 prednisone 10 mg PO DAILY #0 tab 07/23/18 prednisone 10 mg PO DAILY #0 tab 10/27/18 prednisone 10 mg PO DAILY #27 tab 10/27/18 Allergies Allergy/AdvReac Type Severity Reaction Status Date / Time No Known Allergies Allergy Verified 10/23/18 15:33 General Stated Complaint: SOB YVES: 2 Review of Systems Narrative: Stable heel ulcers dressed in Unna boots. Cough and fever today. 6 systems reviewed and otherwise negative [facility] Medical History Acromegaly (Chronic) Acute on chronic kidney failure (Resolved) Adrenal insufficiency (Chronic) Ambulatory dysfunction (Chronic) Anemia (Chronic) Atrial flutter, paroxysmal (Chronic) Back pain (Chronic 06/21/13) CAD (coronary artery disease) (Chronic) Cardiopulmonary arrest with successful resuscitation (Resolved) Cholelithiasis (Chronic) Chronic anxiety (Chronic) Chronic bipolar disorder (Chronic) a. With history of psychosis. Chronic cholecystitis (Chronic) Chronic insomnia (Chronic) Chronic pain (Chronic) On both Methadone and Fentanyl as well as Ultram and Naproxen. CKD (chronic kidney disease) (Chronic) Complicated UTI (urinary tract infection) (Resolved) Diabetes mellitus (Chronic) Diabetic foot ulcer (Acute) Diabetic ulcer of toe associated with diabetes mellitus due to underlying condit ion, with bone involvement without evidence of necrosis (Inactive) 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 (Resolved) Dyslipidemia (Chronic) Elevated troponin I level (Resolved) Endocarditis due to Staphylococcus (Resolved) Heme positive stool (Resolved) Hemorrhagic cystitis (Chronic) Hyperkalemia (Resolved) Hypertension (Chronic) Hypomagnesemia (Chronic) Hypothyroidism (Chronic) Impaired mobility and ADLs (Chronic) Inability to get out of bed (Chronic 06/21/13) Lactic acidosis (Resolved) MRSA bacteremia (Resolved) Obesity (Chronic) a. Obesity though he has had significant weight loss since last seen. Osteoarthritis of both knees (Chronic) Severe. a. Viuo-rn-saci bilateral knees. 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 2 diabetes mellitus (Resolved) Palliative care encounter (Chronic) DObbertin Pedal edema (Chronic) Poor self care (Chronic 06/21/13) Poorly controlled type 2 diabetes mellitus with circulatory disorder (Chronic) Pulmonary hypertension (Chronic) Rheumatoid arthritis (Chronic) Sepsis (Resolved) Septic arthritis of elbow, right (Inactive) Toxic metabolic encephalopathy (Resolved) Toxic metabolic encephalopathy (Resolved) Ulcerative colitis (Chronic) UTI (urinary tract infection) (Resolved) UTI (urinary tract infection) due to Enterococcus (Resolved) Surgical History Arthroplasty of knee (Resolved 03/18/12) irrigation and lavage right Fracture, Open Treatment (Resolved) 06/06/17-[facility] S/P ORIF RIGHT DISTAL HUMERUS FRACTURE History of insertion of T-tube into biliary tract (Chronic) S/P colectomy (Chronic) Social History Smoking/Tobacco Use Status: Former Tobacco Use Alcohol Intake: former Drug use: Rarely Substance use type: marijuana Housing: long term Do you feel safe at home: Yes Do you feel safe in your relationship?: Yes Exam Narrative Exam Narrative: GEN: awake, alert, oriented 3. Pleasant, well groomed, inter active. HEAD: Normocephalic, atraumatic ENT: Mucous membranes moist, oropharynx unremarkable, External ear exam unremarkable EYES: PERRL, EOMI NECK: Full ROM, no ETELVINA, no menigismus CHEST/RESP: Nontender, right greater than left rhonchi CARDIOVASCULAR: Borderline tachycardia, no murmur, rub ambrose. 2+ Rad pulse bilateral ABDOMEN: Soft, nontender, no mass. +Bowel sounds EXT: Full ROM, no edema, no rash. Unna boots removed and Mepilex dressings in place on heel ulcers without drainage or significant erythema. Neuro: Grossly normal neurologic exam, conversant, interactive. Psych: Speech fluent, thoughts congruent, affect normal Course Vital Signs Vital signs: Vital Signs Temperature 38.4 C H 01/08/19 08:46 Pulse 114 H 01/08/19 08:46 Respiratory Rate 28 H 01/08/19 08:46 Blood Pressure 147/78 H 01/08/19 08:46 Temperature 38.4 C H 01/08/19 08:46 Temperature Source Oral 01/08/19 08:46 Pulse 114 H 01/08/19 08:46 Respiratory Rate 28 H 01/08/19 08:46 Respiratory Effort 01/08/19 08:46 Blood Pressure 147/78 H 01/08/19 08:46 Pain Level 7 01/08/19 08:46
--- NOTE | 2019-01-08 09:02 | DI.RAD_ITS ---
EXAM: XR PORTABLE CHEST AP INDICATION: cough, fever. COMPARISON: XR PORTABLE CHEST AP from 06/14/2018 XR CHEST 2V PA LATERAL from 07/09/2018 XR PORTABLE CHEST AP from 10/23/2018 TECHNIQUE: 2D digital imaging was performed. FINDINGS: Heart size appears stable. There are bilateral perihilar infiltrates. There is blunting of the cost ophrenic angles bilaterally. This likely reflects small pleural effusions. There is prominence of t he right hilum. This was not present on the prior examination. This may be vascular in nature. Foc al area of consolidation or adenopathy cannot be excluded. IMPRESSION: 1. Bilateral perihilar infiltrates suspicious for pneumonia. 2. Small bilateral pleural effusions. 3. Prominence of the right hilum. Differential considerations include focal area of consolidation or adenopathy. Mass cannot be entirely excluded. Please correlate clinically. A repeat chest x-ray following treatment is recommended. If the right hilar abnormality persists, a CT scan of the chest with contrast should be obtained. The findings were discussed with the emergency department on the date of the examination.
[2019-01-08] MEDS: Albuterol/Ipratropium 3 ML UPD VIAL (09:06)
[2019-01-08 09:15] LABS: Abs Immature Grans 0.04 k/cumm (0.0-0.09); Absolute Basophil Count 0.03 k/cumm (0.0-0.2); Absolute Eosinophil Count 0.27 k/cumm (0.0-0.7); Basophils % 0.2; Eosinophils % 1.9; HCT 34.7 % (40.0-50.0); HGB 9.8 g/dL (13.5-17.5); Immature Grans % 0.3; Lymphocytes % 3.5; Mean Corp. HGB Concentration 28.2 g/dL (32.0-36.0); Mean Corpuscular Hemoglobin 22.3 pg (27.0-33.0); Mean Platelet Volume 9.6 fL (8.0-11.0); Monocytes % 6.1; Platelet Count 335 x1000/uL (130-400); RBC 4.39 m/cumm (4.50-6.00); RBC Distribution Width 14.8 % (11.8-14.1); White Blood Cell Count 14.18 k/cumm (4.4-10.8)
[2019-01-08] MEDS: Acetaminophen 500 MG TAB 1000 MG PO ×3 (09:15→21:54)
[2019-01-08] MEDS: methylPREDNISolone SUCC 125 MG VIAL IVP (09:15)
[2019-01-08 09:17] LABS: Absolute Monocyte Count 0.86 k/cumm (0.11-0.7); Absolute Neutrophil Count 12.48 k/cumm (1.2-6.7); Lactate 1.2 mmol/L (0.6-1.4)
[2019-01-08] MEDS: Normal Saline 500 ML 1000 ML IV (09:18)
[2019-01-08 09:37] LABS: ALT 13 U/L (16-63); AST 10 U/L (15-37); Albumin 2.4 g/dL (3.4-5.0); Alkaline Phosphatase 138 U/L (46-116); Anion Gap 4.6 mmol/L (3-11); BUN 28 mg/dL (7-18); Bilirubin, Total 0.2 mg/dL (0.2-1.0); CO2 32.4 mmol/L (21.0-32.0); CREATININE 2.26 mg/dL (0.70-1.30); Calcium 8.7 mg/dL (8.5-10.1); Chloride 108 mmol/L (98-107); Estimated GFR 29.85 (mL/min/1.73m2); Glucose 304 mg/dL (70-100); Sodium 145 mmol/L (136-145)
[2019-01-08 09:38] LABS: Troponin I < 0.05 ng/mL (0.00-0.06)
[2019-01-08] MEDS: Hydrocortisone SOD SUC. 100 MG VIAL 50 MG IVP ×2 (10:18→17:46)
[2019-01-08] MEDS: CEFEPIME 2 GM in Normal Saline 100 ML IVPB (10:19)
[2019-01-08 11:01] LABS: Bilirubin Negative (Negative); Blood Moderate (Negative); Clarity Clear (Clear); Glucose Negative (Negative); Ketones Negative (Negative); Leukocyte Esterase Moderate (Negative); Nitrite Negative (Negative); Specific Gravity 1.015 (1.005-1.025); Urobilinogen 0.2 EU/dL (Up TO 0.2); pH 5.5 (5-8)
[2019-01-08 11:12] LABS: C & S Indicated? Yes; WBC >50 HPF (0-5)
[2019-01-08] MEDS: Normal Saline 1,000 ML 125 ML IV ×2 (12:28→21:51)
[2019-01-08] MEDS: Normal Saline Flush 10 ML SYR ×2 (12:29→17:47)
[2019-01-08] MEDS: Lactobacillus Acidophilus CAP 1 CAP PO ×2 (13:43→21:55)
[2019-01-08] MEDS: Sodium Bicarbonate 650 MG TAB PO ×2 (13:43→21:55)
[2019-01-08] MEDS: cloNIDine 0.1 MG TAB PO ×2 (13:44→21:54)
[2019-01-08] MEDS: Gabapentin 100 MG CAP 300 MG PO ×2 (13:44→21:55)
[2019-01-08] MEDS: Insulin Aspart 300 UNITS/3 ML PEN SC ×2 (13:45→17:46)
--- NOTE | 2019-01-08 17:49 | W.PM.HP.N ---
Date of service: 01/08/19 Time of Service: 17:49 Assessment and Plan Assessment and plan (1) Fever: Status: Acute Assessment and plan: Evidence of both UTI and potential pneumonia by imaging. Mr. Monte has a known history of MRSA infection, and is a senior care resident with multiple prior hospitalizations. Review of his urinary cultures in the past is also shown evidence of a vancomycin sensitive E.faecalis as well as a MDR Proteus sensitive to PIP Skinny. -Initiate on vancomycin and Zosyn, and monitor urinary cultures. Await blood culture results, and entered for sputum cultures if able. Continue IVFs for now and monitor vitals, including temperature, heart rate, and blood pressure carefully. (2) Pneumonia: Status: Acute Assessment and plan: As above. (3) UTI (urinary tract infection): Status: Acute Assessment and plan: Treatment as previously stated. (4) Adrenal insufficiency: Status: Chronic Assessment and plan: Maintain on chronic prednisone therapy, with a lengthy history of significant and symptomatic adrenal insufficiency while off steroids. Will ensure stress dosing while patient is acutely ill, and continue underlying daily prednisone therapy. (5) CKD (chronic kidney disease): Status: Chronic Assessment and plan: Creatinine stable and at baseline. Ensure a renal and low potassium diet as Mr. Corley has become hyperkalemic quite easily in the past. Current potassium appears normal. Qualifiers: Chronic kidney disease stage: unspecified stage Qualified Code(s): N18.9 - Chronic kidney disease, unspecified (6) Diabetic foot ulcer: Status: Acute Assessment and plan: Per request from wound nurse will consult podiatry. (7) Diabetes mellitus: Status: Chronic Assessment and plan: Continue basal insulin, initiates on sliding scale coverage, and ensure ADA diet. Qualifiers: Diabetes mellitus type: type 2 Diabetes mellitus residential insulin use: with residential use Diabetes mellitus complication status: with neurologic complications Diabetes mellitus complication detail: with polyneuropathy Qualified Code(s): E11.42 - Type 2 diabetes mellitus with diabetic polyneuropathy; Z79.4 - half-way (current) use of insulin (8) Hypertension: Status: Chronic Assessment and plan: Blood pressure is appropriate. We will continue home regimen of Norvasc, clonidine, and Terazosin with strict hold parameters. (9) Hypothyroidism: Status: Chronic Assessment and plan: Continue replacement therapy. (10) DVT prophylaxis: Status: Acute Assessment and plan: On chronic anticoagulation for underlying atrial flutter. On daily PPI therapy for GI prophylaxis as well. (11) Advance directive on file: Status: Acute Assessment and plan: Full code. History of Present Illness History of Present Illness Chief Complaint: Cough, dyspnea Narrative: 58 year old male resident of the [facility], with a prior history of multiple hospitalizations, being admitted on 01/08 from [facility] Emergency Department with a diagnosis of Pneumonia. Mr. Corley has been hospitalized here at [facility] with sepsis on numerous prior occasions. He has a history of Group C strep and MRSA bacteremia, as well as E. Fecalis UTI with Urosepsis in the past. He suffered a cardiopulmonary arrest previously, necessitating a transfer to [facility] at which time he was treated for Choleycystitis, and as he was deemed not a surgical candidate was treated conservatively with a pigtail catheter that remains in place. His other medical history includes DM, Adrenal insufficiency secondary to chronic steroid use, RA, Crohn's disease s/p Colectomy, OA, CKD with prior JESUS and resultant hyperkalemia, HTN, CAD, hypothyroidism, Obesity, and chronic pain. He's had recurrent UTIs, and also has a history of a non-healing diabetic foot ulcer for which he has undergone debridement in the past with excision of the right toe without evidence of Osteo, chronically followed as an outpatient by Podiatry. He also suffers from frequent hyperkalemia, and was diagnosed with Atrial Flutter during a previous hospitalization, for which he is on chronic anticoagulation. The patient has also been treated for MRSA bacteremia on multiple prior occasions, including January of 2018, February, April, and June of 2018. He was ultimately found to have evidence of a right elbow septic arthritis, transferred to [facility], and underwent hardware removal in his elbow in June followed by a washout of the wound. He has undergone a subsequent 6 week total course of antibiotics. The patient presented to the ED after feeling unwell this morning at his residence at a local senior care. He complained of a cough and subjective fever, and reported a roommate at the [facility] who recently had a respiratory illness. Upon initial evaluation was noted to have temperature as high as 39.8, tachycardia, and mild hypoxia, with labwork significant for a mild leukocytosis. His renal function was at baseline, and lactate was checked and normal. His urinalysis was positive for Pyuria, and Xray showed bilateral perihilar infiltrates suspicious for pneumonia, with small b/l pleural effusions. He was referred for admission for further evaluation and treatment. Review of Systems All systems reviewed & are unremarkable except as noted in HPI and below [facility] Medical History Acromegaly (Chronic) Acute on chronic kidney failure (Resolved) Adrenal insufficiency (Chronic) Ambulatory dysfunction (Chronic) Anemia (Chronic) Atrial flutter, paroxysmal (Chronic) Back pain (Chronic 06/21/13) CAD (coronary artery disease) (Chronic) Cardiopulmonary arrest with successful resuscitation (Resolved) Cholelithiasis (Chronic) Chronic anxiety (Chronic) Chronic bipolar disorder (Chronic) a. With history of psychosis. Chronic cholecystitis (Chronic) Chronic insomnia (Chronic) Chronic pain (Chronic) On both Methadone and Fentanyl as well as Ultram and Naproxen. CKD (chronic kidney disease) (Chronic) Complicated UTI (urinary tract infection) (Resolved) Diabetes mellitus (Chronic) Diabetic foot ulcer (Acute) Diabetic ulcer of toe associated with diabetes mellitus due to underlying condition, with bone involvement without evidence of necrosis (Inactive) 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 (Resolved) Dyslipidemia (Chronic) Elevated troponin I level (Resolved) Endocarditis due to Staphylococcus (Resolved) Heme positive stool (Resolved) Hemorrhagic cystitis (Chronic) Hyperkalemia (Resolved) Hypertension (Chronic) Hypomagnesemia (Chronic) Hypothyroidism (Chronic) Impaired mobility and ADLs (Chronic) Inability to get out of bed (Chronic 06/21/13) Lactic acidosis (Resolved) MRSA bacteremia (Resolved) Obesity (Chronic) a. Obesity though he has had significant weight loss since last seen. Osteoarthritis of both knees (Chronic) Severe. a. [id number] bilateral knees. 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 2 diabetes mellitus (Resolved) Palliative care encounter (Chronic) DObbertin Pedal edema (Chronic) Poor self care (Chronic 06/21/13) Poorly controlled type 2 diabetes mellitus with circulatory disorder (Chronic) Pulmonary hypertension (Chronic) Rheumatoid arthritis (Chronic) Sepsis (Resolved) Septic arthritis of elbow, right (Inactive) Toxic metabolic encephalopathy (Resolved) Toxic metabolic encephalopathy (Resolved) Ulcerative colitis (Chronic) UTI (urinary tract infection) (Resolved) UTI (urinary tract infection) due to Enterococcus (Resolved) Surgical History Arthroplasty of knee (Resolved 03/18/12) irrigation and lavage right Fracture, Open Treatment (Resolved) 06/06/17-[facility] S/P ORIF RIGHT DISTAL HUMERUS FRACTURE History of insertion of T-tube into biliary tract (Chronic) S/P colectomy (Chronic) Social History Smoking/Tobacco Use Status: Former Tobacco Use Alcohol Intake: former Drug use: Rarely Substance use type: marijuana Housing: senior care Do you feel safe at home: Yes Do you feel safe in your relationship?: Yes Meds Home Medications and Allergies Home Medications Medication Instructions Recorded Confirmed Type cyanocobalamin (vitamin B-12) 1,000 mcg PO DAILY 12/23/17 01/08/19 History folic acid 1 mg PO DAILY 12/23/17 01/08/19 History loperamide 2 mg PO QID PRN 12/23/17 10/23/18 History ferrous sulfate 325 mg PO BID #0 tab 12/31/17 01/08/19 Rx hydroxyzine HCl 25 mg PO Q6H PRN PRN #0 tab 02/10/18 10/23/18 Rx magnesium chloride [Mag 64] 64 mg PO BID #0 tab 02/10/18 01/08/19 Rx terazosin 4 mg PO BID #0 cap 02/10/18 01/08/19 Rx Centrum Complete 1 tab PO DAILY 03/01/18 01/08/19 History ascorbic acid (vitamin C) [Vitamin 1 tab PO BID 03/01/18 01/08/19 History C] acidophilus-pectin, citrus 1 cap PO TID #0 tab 03/24/18 01/08/19 Rx trazodone 50 mg PO HS #30 tab 05/06/18 01/08/19 Rx Eliquis 5 mg PO BID #60 tab 06/19/18 01/08/19 Rx Novolog Flexpen U-100 Insulin See Rx Instructions .ROUTE 06/19/18 01/08/19 Rx .COMPLEX #15 ml fluticasone propionate 0 g NS DAILY #1 g 06/19/18 01/08/19 Rx ipratropium-albuterol 3 ml UPD Q6H PRN PRN #1 startr pk 06/19/18 01/08/19 Rx levothyroxine 25 mcg PO DAILY@0600 #30 tab 06/19/18 01/08/19 Rx melatonin 6 mg PO HS #30 tab 06/19/18 01/08/19 Rx pantoprazole 40 mg PO DAILY #60 tab 06/19/18 01/08/19 Rx sodium bicarbonate 650 mg PO TID #90 tab 06/19/18 01/08/19 Rx trimethobenzamide 300 mg PO TID PRN PRN #30 cap 06/19/18 10/23/18 Rx Lantus Solostar U-100 Insulin 48 unit SUBCUT BID 07/09/18 01/08/19 History calcium carbonate-vitamin D3 1 tab PO BID 07/09/18 01/08/19 History [Calcium 500 + D] oxycodone 10 mg PO BID 07/09/18 01/08/19 History amlodipine 5 mg PO DAILY #0 tab 07/23/18 01/08/19 Rx clonidine HCl [Catapres] 0.1 mg PO TID #0 tab 07/23/18 01/08/19 Rx furosemide 40 mg PO DAILY #0 tab 07/23/18 01/08/19 Rx prednisone 10 mg PO DAILY #0 tab 07/23/18 10/23/18 Rx venlafaxine [Effexor XR] 112.5 mg PO DAILY 10/23/18 01/08/19 History prednisone 10 mg PO DAILY #0 tab 10/27/18 Rx prednisone 10 mg PO DAILY #27 tab 10/27/18 01/08/19 Rx acetaminophen [Tylenol] 1,000 mg PO TID 01/08/19 01/08/19 History gabapentin 300 mg PO TID 01/08/19 01/08/19 History risperidone [Risperdal] 2 mg PO DAILY 01/08/19 01/08/19 History Allergies Allergy/AdvReac Type Severity Reaction Status Date / Time No Known Allergies Allergy Verified 10/23/18 15:33 Exam Narrative Exam Narrative: General: Patient appears comfortable, AAOX3, appears ill but not toxic. NAD Neck: Supple CV: Regular, mildly tachycardic, S1S2, No rubs, murmurs, or gallops. Pulmonary: Mild bilateral rhonchi, no wheezing Abdomen: + Bowel Sounds, soft, nontender, nondistended Vascular: No lower extremity edema Psych: Normal mood and affect. Results Labs Result diagrams: 01/08/19 09:07 01/08/19 09:07 Labs: Laboratory Results - last 24 hr 01/08/19 01/08/19 01/08/19 09:07 09:07 09:07 WBC 14.18 H RBC 4.39 L Hgb 9.8 L Hct 34.7 L MCV 79.0 L MCH 22.3 L MCHC 28.2 L RDW 14.8 H Plt Count 335 MPV 9.6 Immature Gran % 0.3 Neutrophils % 88.0 Lymphocytes % 3.5 Monocytes % 6.1 Eosinophils % 1.9 Basophils % 0.2 Absolute Neutrophils 12.48 H Absolute Lymphocytes 0.50 L Absolute Monocytes 0.86 H Absolute Eosinophils 0.27 Absolute Basophils 0.03 Sodium 145 Potassium 4.0 Chloride 108 H Carbon Dioxide 32.4 H Anion Gap 4.6 BUN 28 H Creatinine 2.26 H Estimated GFR/1.73 m2 29.85 Glucose 304 H Lactate 1.2 Calcium 8.7 Total Bilirubin 0.2 AST 10 L ALT 13 L Alkaline Phosphatase 138 H Troponin I < 0.05 Total Protein 7.0 Albumin 2.4 L Urine Color Urine Clarity Urine pH Ur Specific [place] Urine Protein Urine Ketones Urine Blood Urine Nitrite Urine Bilirubin Urine Urobilinogen Ur Leukocyte Esterase Urine RBC Urine WBC Ur Epithelial Cells Urine Crystals Urine Bacteria Urine Mucus Ur Culture Indicated? Urine Glucose 01/08/19 10:53 WBC RBC Hgb Hct MCV MCH MCHC RDW Plt Count MPV Immature Gran % Neutrophils % Lymphocytes % Monocytes % Eosinophils % Basophils % Absolute Neutrophils Absolute Lymphocytes Absolute Monocytes Absolute Eosinophils Absolute Basophils Sodium Potassium Chloride Carbon Dioxide Anion Gap BUN Creatinine Estimated GFR/1.73 m2 Glucose Lactate Calcium Total Bilirubin AST ALT Alkaline Phosphatase Troponin I Total Protein Albumin Urine Color Yellow Urine Clarity Clear Urine pH 5.5 Ur Specific [place] 1.015 Urine Protein 100 H Urine Ketones Negative Urine Blood Moderate H Urine Nitrite Negative Urine Bilirubin Negative Urine Urobilinogen 0.2 Ur Leukocyte Esterase Moderate H Urine RBC Not Applicable Urine WBC >50 H Ur Epithelial Cells Not Applicable Urine Crystals Not Applicable Urine Bacteria Not Applicable Urine Mucus Not Applicable Ur Culture Indicated? Yes Urine Glucose Negative Last Vital Signs Temp 37.0 C 01/08/19 16:19 Pulse 65 01/08/19 16:19 Resp 20 01/08/19 16:19 BP 125/75 01/08/19 16:19 Pulse Ox 98 01/08/19 16:19
[2019-01-08 18:00] LABS: Glucose 463 mg/dL (70-100)
[2019-01-08] MEDS: Ascorbic Acid 500 MG TAB 250 MG PO (21:54)
[2019-01-08] MEDS: Magnesium Chloride 64 MG TABCR PO (21:54)
[2019-01-08] MEDS: Terazosin 2 MG CAP 4 MG PO (21:54)
[2019-01-08] MEDS: Ferrous Sulfate 325 MG TAB PO (21:55)
[2019-01-08] MEDS: Melatonin 3 MG TAB 6 MG PO (21:55)
[2019-01-08] MEDS: Apixaban 5 MG TAB PO (21:55)
[2019-01-08] MEDS: oxyCODONE 10 MG TAB PO (21:56)
[2019-01-08] MEDS: traZODone 50 MG TAB PO (21:56)
[2019-01-08] MEDS: PIPERACILLIN/TAZO 4.5 GM in Normal Saline 100 ML IVPB (21:59)
[2019-01-08] MEDS: Insulin Glargine 300 UNITS/3 ML PEN 48 UNITS SC (21:59)
[2019-01-09 00:02] VITALS: BP 138/76; PULSE 68; RESP 20; TEMP 36.6; O2SAT 99
[2019-01-09] MEDS: Hydrocortisone SOD SUC. 100 MG VIAL 50 MG IVP ×3 (02:42→17:58)
[2019-01-09 02:56] VITALS: TEMP 36.3
[2019-01-09] MEDS: PIPERACILLIN/TAZO 4.5 GM in Normal Saline 100 ML IVPB ×2 (05:06→12:17)
[2019-01-09] MEDS: Levothyroxine 25 MCG TAB PO (06:39)
[2019-01-09 07:32] LABS: Anion Gap 8.7 mmol/L (3-11); BUN 36 mg/dL (7-18); CO2 23.3 mmol/L (21.0-32.0); CREATININE 2.43 mg/dL (0.70-1.30); Calcium 8.8 mg/dL (8.5-10.1); Chloride 105 mmol/L (98-107); Estimated GFR 27.45 (mL/min/1.73m2); Glucose 390 mg/dL (70-100); Magnesium 1.5 mg/dL (1.8-2.4); Potassium 5.8 mmol/L (3.5-5.1); Sodium 137 mmol/L (136-145)
[2019-01-09 07:37] VITALS: BP 138/64; PULSE 61; RESP 17; TEMP 36.7; O2SAT 98
[2019-01-09 07:38] LABS: Abs Immature Grans 0.06 k/cumm (0.0-0.09); Absolute Basophil Count 0.02 k/cumm (0.0-0.2); Absolute Lymphocyte Count 0.61 k/cumm (1.2-3.4); Basophils % 0.1; HCT 35.5 % (40.0-50.0); Immature Grans % 0.3; Lymphocytes % 3.4; Mean Corp. HGB Concentration 28.2 g/dL (32.0-36.0); Mean Corpuscular Hemoglobin 22.1 pg (27.0-33.0); Mean Corpuscular Volume 78.4 fL (80-95); Mean Platelet Volume 10.3 fL (8.0-11.0); Monocytes % 5.5; Neutrophils % 90.7; Platelet Count 285 x1000/uL (130-400); RBC 4.53 m/cumm (4.50-6.00); RBC Distribution Width 14.9 % (11.8-14.1); White Blood Cell Count 18.08 k/cumm (4.4-10.8)
[2019-01-09 07:39] LABS: Absolute Monocyte Count 0.99 k/cumm (0.11-0.7)
[2019-01-09] MEDS: Insulin Aspart 300 UNITS/3 ML PEN SC ×5 (09:45→17:23)
[2019-01-09] MEDS: Venlafaxine 37.5 MG CAPCR 112.5 MG PO (09:46)
[2019-01-09] MEDS: oxyCODONE 10 MG TAB PO ×2 (09:47→20:49)
[2019-01-09] MEDS: Gabapentin 100 MG CAP 300 MG PO ×3 (09:47→20:49)
[2019-01-09] MEDS: amLODIPine 5 MG TAB PO (09:48)
[2019-01-09] MEDS: Multivitamin w/Minerals TAB 1 TAB PO (09:48)
[2019-01-09] MEDS: Sodium Bicarbonate 650 MG TAB PO ×3 (09:48→20:49)
[2019-01-09] MEDS: Magnesium Chloride 64 MG TABCR PO ×2 (09:48→20:51)
[2019-01-09] MEDS: Ferrous Sulfate 325 MG TAB PO ×2 (09:48→20:51)
[2019-01-09] MEDS: Apixaban 5 MG TAB PO ×2 (09:49→20:49)
[2019-01-09] MEDS: Ascorbic Acid 500 MG TAB 250 MG PO ×2 (09:49→20:51)
[2019-01-09] MEDS: Cyanocobalamin 500 MCG TAB 1000 MCG PO (09:49)
[2019-01-09] MEDS: Lactobacillus Acidophilus CAP 1 CAP PO ×3 (09:50→20:49)
[2019-01-09] MEDS: Acetaminophen 500 MG TAB 1000 MG PO ×3 (09:50→20:48)
[2019-01-09] MEDS: Terazosin 2 MG CAP 4 MG PO ×2 (09:50→20:49)
[2019-01-09] MEDS: Pantoprazole 40 MG TABCR PO (09:50)
[2019-01-09] MEDS: predniSONE 10 MG TAB PO (09:50)
[2019-01-09] MEDS: Folic Acid 1 MG TAB PO (09:50)
[2019-01-09] MEDS: cloNIDine 0.1 MG TAB PO ×3 (09:50→20:50)
[2019-01-09] MEDS: Insulin Glargine 300 UNITS/3 ML PEN 48 UNITS SC (10:06)
[2019-01-09] MEDS: Insulin REGULAR-Human 100 UNITS/ML UNIT 10 UNITS IV (11:26)
[2019-01-09] MEDS: MAGNESIUM SULFATE 2 GM/50 ML BAG IVPB (11:26)
[2019-01-09] MEDS: Normal Saline Flush 10 ML SYR IVP ×2 (11:32→17:59)
[2019-01-09 12:05] LABS: Procalcitonin 4.3 ng/mL
--- NOTE | 2019-01-09 13:19 | PT.INIE ---
Date of service: 01/09/19 Time of Service: 13:00 PT Notes Inpatient Physical Therapy Evaluation Date: 01/09/19 Referring Doctor: Dr. Canela PT Orders: PT CONSULT: limited ability to ambulate Precautions: contact, standard Patient Profile/Admitting Diagnosis: Patient admitted from [facility] for medical management of pneumonia. PMHX: Acromegaly (Chronic) Acute on chronic kidney failure (Resolved) Adrenal insufficiency (Chronic) Ambulatory dysfunction (Chronic) Anemia (Chronic) Atrial flutter, paroxysmal (Chronic) Back pain (Chronic 06/21/13) CAD (coronary artery disease) (Chronic) Cardiopulmonary arrest with successful resuscitation (Resolved) Cholelithiasis (Chronic) Chronic anxiety (Chronic) Chronic bipolar disorder (Chronic) a. With history of psychosis. Chronic cholecystitis (Chronic) Chronic insomnia (Chronic) Chronic pain (Chronic) On both Methadone and Fentanyl as well as Ultram and Naproxen. CKD (chronic kidney disease) (Chronic) Complicated UTI (urinary tract infection) (Resolved) Diabetes mellitus (Chronic) Diabetic foot ulcer (Acute) Diabetic ulcer of toe associated with diabetes mellitus due to underlying condition, with bone involvement without evidence of necrosis (Inactive) 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 (Resolved) Dyslipidemia (Chronic) Elevated troponin I level (Resolved) Endocarditis due to Staphylococcus (Resolved) Heme positive stool (Resolved) Hemorrhagic cystitis (Chronic) Hyperkalemia (Resolved) Hypertension (Chronic) Hypomagnesemia (Chronic) Hypothyroidism (Chronic) Impaired mobility and ADLs (Chronic) Inability to get out of bed (Chronic 06/21/13) Lactic acidosis (Resolved) MRSA bacteremia (Resolved) Obesity (Chronic) a. Obesity though he has had significant weight loss since last seen. Osteoarthritis of both knees (Chronic) Severe. a. [id number] bilateral knees. 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 2 diabetes mellitus (Resolved) Palliative care encounter (Chronic) DObbertin Pedal edema (Chronic) Poor self care (Chronic 06/21/13) Poorly controlled type 2 diabetes mellitus with circulatory disorder (Chronic) Pulmonary hypertension (Chronic) Rheumatoid arthritis (Chronic) Sepsis (Resolved) Septic arthritis of elbow, right (Inactive) Toxic metabolic encephalopathy (Resolved) Toxic metabolic encephalopathy (Resolved) Ulcerative colitis (Chronic) Social History/Home Situation: Long-term resident of the [facility]. Patient has had multiple acute care admissions in the past several years. Ambulates short distances with FW W, although reports that he has been shut off at the [facility] and has not walked in several weeks. Equipment Owned/DME: LTC resident Subjective: Brendan states that he is not willing to stand or ambulate at time of consultation, stating that he just walked from the chair to the bed with nursing. Objective: General Observation: Resting in bed in initiation of session. Patient is agreeable and smiling throughout session. IV to RUE. Abdominal drain in place. Mental Status: A and O x3 Pain: Right elbow ROM: Right Upper Extremity: Shoulder flexion allows 65 degrees. Elbow motion allows -30 extension to 90 degrees flexion. He has partial opening and partial closing of the hand. Left Upper Extremity: Shoulder flexion allows 65 degrees. Elbow motion full. He has partial opening and partial closing of the hand. Right Lower Extremity: Right knee allows -20 degrees extension, 90 degrees flexion. Ankle dorsiflexion allows 0 degrees. Left Lower Extremity: Left knee allows -10 degrees extension, 90 degrees flexion. Ankle dorsiflexion to 0 degrees Strength: Right Upper Extremity: Shoulder motions grossly 3-/5. Left Upper Extremity: Shoulder motions grossly 3-/5. Right Lower Extremity: Hip flexion 4+/5. Quads 4+/5. Ankle dorsiflexion 3-/5. Left Lower Extremity: Hip flexion 4+/5. Quads 4+/5. Ankle dorsiflexion 3-/5. Bed Mobility/Transfers: Supine?sit: Supervision Sit?supine: Supervision Scooting up in bed: Supervision with bed flat Gait: Patient refuses ambulation. Per nursing, he performed a stand pivot transfer from chair to bed with FW W. Balance: Static Sitting: Normal Dynamic Sitting: Good Static Standing: Refuses Dynamic Standing: Refuses Special Tests: Mobility Limitations Standardized Measure [facility] AM-PAC 6 clicks Basic Mobility Inpatient Short Form: Raw Score: 15 CMS Score: 58% Informed Consent/Education: Patient instructed in purpose of PT consult and plan of care. Assessment: Patient is a 58 year old male referred to physical therapy services with the diagnosis of limited ability to ambulate. Patient presents with clinical signs and symptoms consistent with acute on chronic mobility deficits. He has been admitted for management of pneumonia, and per his report has had a significant decline in his mobility over the past few weeks. He requires skilled PT intervention to maximize safety and mobility to allow for transition back to long-term care facility once medically stable. He currently demonstrates the following impairment level findings: 1. Severe, global weakness and loss of range of motion 2. Contractures of the right elbow, bilateral knees 3. Decreased activity tolerance Impairments are contributing to the following functional limitations: 1. Unable to ambulate 2. Decreased activity tolerance 3. Decreased independence with transfers Patient is assessed as Moderate 72573 complexity based on the following: History: 58-year-old male admitted for medical management of pneumonia. Patient has chronic mobility deficits related to his extensive medical history including severe osteoarthritis, DM, acromegaly. Examination: Functional limitations as noted above Presentation: Evolving Decision Making: Moderate complexity Goals: Goals X1 week 1. Supine-Sit : Supervision 2. Sit-Supine : Supervision 3. Sit-Stand : Supervision 4. Stand-Sit : Supervision 5. Bed-Chair: min A with FWW 6. Chair-Bed : min A with FWW Plan of Care/Treatment Plan: 1x/day, 7 days/week x 1 week. Plan of care has been reviewed with the CHARHOUSE WORKER providing the service under Physical Therapy direction. Initiate Physical Therapy intervention for strengthening, bed mobility, transfers, gait, stairs, balance training, use of assistive device. DISCHARGE RECOMMENDATIONS: Long-term care TREATMENT CODE/TIME: 42747 (1:00-1:20) Carrol Mora, PT, DPT [facility]
--- NOTE | 2019-01-09 13:45 | NUR.NOTE ---
i went into the Patients room to get him up and do vitals and i found him covered in stool Nursing Note:
[2019-01-09 14:25] LABS: Anion Gap 6.4 mmol/L (3-11); BUN 40 mg/dL (7-18); CO2 26.6 mmol/L (21.0-32.0); CREATININE 2.59 mg/dL (0.70-1.30); Calcium 8.8 mg/dL (8.5-10.1); Chloride 104 mmol/L (98-107); Glucose 302 mg/dL (70-100); Potassium 5.4 mmol/L (3.5-5.1); Sodium 137 mmol/L (136-145)
[2019-01-09 15:20] VITALS: BP 121/73; PULSE 56; RESP 16; TEMP 36.6; O2SAT 97
--- NOTE | 2019-01-09 17:12 | INITIAL_ITS ---
- If Service Date Differs Date of service: 01/09/19 Time of Service: 17:12 Care Management Initial Assess PAST MEDICAL HISTORY/PAST SURGICAL HISTORY:: Medical History: Acromegaly (Chronic). Acute on chronic kidney failure (Resolved). Adrenal insufficiency (Chronic). Ambulatory dysfunction (Chronic). Anemia (Chronic). Atrial flutter, paroxysmal (Chronic). Back pain (Chronic 06/21/13). CAD (coronary artery disease) (Chronic). Cardiopulmonary arrest with successful resuscitation (Resolved). Cholelithiasis (Chronic). Chronic anxiety (Chronic). Chronic bipolar disorder (Chronic). a. With history of psychosis. Chronic cholecystitis (Chronic). Chronic insomnia (Chronic). Chronic pain (Chronic). On both Methadone and Fentanyl as well as Ultram and Naproxen. CKD (chronic kidney disease) (Chronic). Complicated UTI (urinary tract infection) (Resolved). Diabetes mellitus (Chronic). Diabetic foot ulcer (Acute). Diabetic ulcer of toe associated with diabetes mellitus due to underlying condition, with bone involvement without evidence of necrosis (Inactive). 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 (Resolved). Dyslipidemia (Chronic). Elevated troponin I level (Resolved). Endocarditis due to Staphylococcus (Resolved). Heme positive stool (Resolved). Hemorrhagic cystitis (Chronic). Hyperkalemia (Resolved). Hypertension (Chronic). Hypomagnesemia (Chronic). Hypothyroidism (Chronic). Impaired mobility and ADLs (Chronic). Inability to get out of bed (Chronic 06/21/13). Lactic acidosis (Resolved). MRSA bacteremia (Resolved). Obesity (Chronic). a. Obesity though he has had significant weight loss since last seen. Osteoarthritis of both knees (Chronic). Severe. a. Ckek-[id number] bilateral knees. 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 2 diabetes mellitus (Resolved). Palliative care encounter (Chronic). DObbertin. Pedal edema (Chronic). Poor self care (Chronic 06/21/13). Poorly controlled type 2 diabetes mellitus with circulatory disorder (Chronic). Pulmonary hypertension (Chronic). Rheumatoid arthritis (Chronic). Sepsis (Resolved). Septic arthritis of elbow, right (Inactive). Toxic metabolic encephalopathy (Resolved). Ulcerative colitis (Chronic). UTI (urinary tract infection) (Resolved). Surgical History . Arthroplasty of knee (Resolved 03/18/12). irrigation and lavage right. Fracture, Open Treatment (Resolved). 06/06/17[place] S/P ORIF RIGHT DISTAL HUMERUS FRACTURE. History of insertion of T-tube into biliary tract (Chronic). 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 Brendan has a sister, Lian Hardy (P#[phone]) who lives in [facility] but they have limited contact. They do speak via phone every couple of weeks. he also has numerous nieces and nephews but states he rarely sees them. His sister is his only identified family support. Brendan enjoys reading and watching TV. CURRENT FUNCTIONAL STATUS:: Brendan was sitting up in bed when CM met with him. He was pleasant and readily engaged in conversation. He shared that he feels he could use more care at the [facility]. He stated that sometimes he has to wait 20-30 minutes for assistance. He also said that he feels better when he is at [facility]. When asked if he ever gets out of bed he answered that he used to have PT but that they stopped it because he was not progressing. ADVANCE DIRECTIVES:: COLST on file Has patient been provided with information about the portal?: No Did the patient sign up for the portal?: No CODE STATUS:: Full Code INSURANCE COVERAGE / FINANCIAL ISSUES:: Medicare. Medicaid CURRENT HOME/COMMUNITY SERVICES/EQUIPMENT:: Brendan is a resident at the [facility] and all of his care is managed by the staff there. PRIMARY CARE PHYSICIAN:: Anne Horowitz MD PATIENT/FAMILY EDUCATION NEEDS:: Review of discharge instructions and Ask Me Three TRANSPORTATION:: via [facility] w/c van PLAN:: Brendan will return to The [facility] where he lives when medically ready. Followup care will be determined by his PCP and the staff there. He will transport via [facility] wheelchair van. CM will continue to support patient, family and discharge planning needs.
--- NOTE | 2019-01-09 17:47 | W.PM.PROGNOT ---
Date of Service Date of service: 01/09/19 Time of Service: 17:47 Assessment and Plan Assessment and plan (1) Fever: Status: Acute Assessment and plan: Evidence of both UTI and potential pneumonia by imaging. Treat as below until more culture data available. Blood cultures with NGTD. (2) Pneumonia: Status: Acute Assessment and plan: HCAP, present on admission. On empiric vancomycin/zosyn. Consider d/c vancomycin tomorrow. (3) UTI (urinary tract infection): Status: Acute Assessment and plan: Present on admission. Urine with 2 different strains of GNR - await speciation/sensitivities. For now, continue vancomycin/zosyn. (4) Adrenal insufficiency: Status: Chronic Assessment and plan: Continue stress dose steroids (5) CKD (chronic kidney disease): Status: Chronic Assessment and plan: with borderline hypekalemia. Cr increasing despite IVF. We are checking bladder scans to ensure no urinary retention. Continue IVF. Renally dose meds Qualifiers: Chronic kidney disease stage: unspecified stage Qualified Code(s): N18.9 - Chronic kidney disease, unspecified (6) Diabetic foot ulcer: Status: Acute Assessment and plan: POdiatry consulted. Check wound cultures and CRP. (7) Diabetes mellitus: Status: Chronic Assessment and plan: Increase basal insulin, add scheduled prandial insulin (carb coverage), continue SSI and carb consistent diet. Qualifiers: Diabetes mellitus type: type 2 Diabetes mellitus senior living insulin use: with senior living use Diabetes mellitus complication status: with neurologic complications Diabetes mellitus complication detail: with polyneuropathy Qualified Code(s): E11.42 - Type 2 diabetes mellitus with diabetic polyneuropathy; Z79.4 - half-way (current) use of insulin (8) Hypertension: Status: Chronic Assessment and plan: Blood pressure is appropriate. We will continue home regimen of Norvasc, clonidine, and Terazosin with strict hold parameters. (9) Hypothyroidism: Status: Chronic Assessment and plan: Continue replacement therapy. (10) DVT prophylaxis: Status: Acute Assessment and plan: On therapeutic eliquis (atrial flutter). On daily PPI therapy for GI prophylaxis as well. (11) Advance directive on file: Status: Acute Assessment and plan: Full code. Subjective Subjective Interval history since last seen: Feels better than yesterday - especially breathing. Denies dizziness, chest pain, shortness of breath, nausea, vomiting. Would like us to retime his medications (GPN, tylenol, another pain med). Exam Narrative Exam Narrative: General: very pleasant middle-aged male, A&Ox3, in great spirits, looks better than when I last saw him HEENT: EOMI, MMM Heart: RRR, no m/r/g Lungs: slightly rhonchorous B GI: abdomen is soft, nontender, nondistended Extremities: no edema BLE's, wearing hill protectors Objective Objective Clinical Data: Abnormal lab results 01/08/19 01/09/19 01/09/19 Range/Units 17:44 07:08 07:08 WBC 18.08 H (4.4-10.8) k/cumm Hgb 10.0 L (13.5-17.5) g/dL Hct 35.5 L (40.0-50.0) % MCV 78.4 L (80-95) fL MCH 22.1 L (27.0-33.0) pg MCHC 28.2 L (32.0-36.0) g/dL RDW 14.9 H (11.8-14.1) % Absolute Neutrophils 16.40 H (1.2-6.7) k/cumm Absolute Lymphocytes 0.61 L (1.2-3.4) k/cumm Absolute Monocytes 0.99 H (0.11-0.7) k/cumm Potassium 5.8 H D (3.5-5.1) mmol/L BUN 36 H (7-18) mg/dL Creatinine 2.43 H (0.70-1.30) mg/dL Glucose 463 H D 390 H (70-100) mg/dL Magnesium 1.5 L (1.8-2.4) mg/dL 01/09/19 Range/Units 14:10 WBC (4.4-10.8) k/cumm Hgb (13.5-17.5) g/dL Hct (40.0-50.0) % MCV (80-95) fL MCH (27.0-33.0) pg MCHC (32.0-36.0) g/dL RDW (11.8-14.1) % Absolute Neutrophils (1.2-6.7) k/cumm Absolute Lymphocytes (1.2-3.4) k/cumm Absolute Monocytes (0.11-0.7) k/cumm Potassium 5.4 H (3.5-5.1) mmol/L BUN 40 H (7-18) mg/dL Creatinine 2.59 H (0.70-1.30) mg/dL Glucose 302 H (70-100) mg/dL Magnesium (1.8-2.4) mg/dL Vital Signs Temperature 36.6 C 01/09/19 15:20 Temperature Source Skin 01/09/19 15:20 Pulse 56 L 01/09/19 15:20 Pulse Rhythm Regular 01/09/19 15:35 Pulse 107 H 01/08/19 10:50 Respiratory Rate 16 01/09/19 15:20 Respiratory Effort Non-Labored 01/09/19 15:35 Respiratory Depth Normal 01/09/19 15:35 Respiratory Pattern Normal 01/09/19 15:35 Blood Pressure 121/73 01/09/19 15:20 Blood Pressure Mean 91 01/08/19 10:46 Pulse Oximetry 97 01/09/19 15:20 Oxygen Delivery Method Nasal Cannula 01/09/19 15:20 Oxygen Flow Rate 2 01/09/19 15:20 Pain Level 0 01/09/19 15:20 Intake & Output 01/08/19 01/09/19 01/09/19 23:59 11:59 23:59 Intake Total 2850 / 2850 2450 / 2700 250 / 2700 Output Total 850 / 850 1400 / 1580 180 / 1580 Balance 1999 1050 / 1120 70 / 1120 Weight 103.8 kg Intake: IV 2850 / 2850 1200 / 1450 250 / 1450 Oral 1250 / 1250 Output: Urine 275 / 275 1300 / 1480 180 / 1480 Post Void Residual 0 / 0 Stool 575 / 575 100 / 100 Other: Urine Color Yellow Yellow Urine Appearance Clear Clear Urine Odor Strong Stool Size Moderate Copious Stool Characteristics Soft Liquid Liquid Brown Voiding Methods Urinal Urinal Laboratory Results WBC 18.08 k/cumm (4.4-10.8) H 01/09/19 07:08 RBC 4.53 m/cumm (4.50-6.00) 01/09/19 07:08 Hgb 10.0 g/dL (13.5-17.5) L 01/09/19 07:08 Hct 35.5 % (40.0-50.0) L 01/09/19 07:08 MCV 78.4 fL (80-95) L 01/09/19 07:08 MCH 22.1 pg (27.0-33.0) L 01/09/19 07:08 MCHC 28.2 g/dL (32.0-36.0) L 01/09/19 07:08 RDW 14.9 % (11.8-14.1) H 01/09/19 07:08 Plt Count 285 x1000/uL (130-400) 01/09/19 07:08 MPV 10.3 fL (8.0-11.0) 01/09/19 07:08 Immature Gran % 0.3 01/09/19 07:08 Neutrophils % 90.7 01/09/19 07:08 Lymphocytes % 3.4 01/09/19 07:08 Monocytes % 5.5 01/09/19 07:08 Eosinophils % 0.0 01/09/19 07:08 Basophils % 0.1 01/09/19 07:08 Absolute Neutrophils 16.40 k/cumm (1.2-6.7) H 01/09/19 07:08 Absolute Lymphocytes 0.61 k/cumm (1.2-3.4) L 01/09/19 07:08 Absolute Monocytes 0.99 k/cumm (0.11-0.7) H 01/09/19 07:08 Absolute Eosinophils 0.00 k/cumm (0.0-0.7) 01/09/19 07:08 Absolute Basophils 0.02 k/cumm (0.0-0.2) 01/09/19 07:08 Sodium 137 mmol/L (136-145) 01/09/19 14:10 Potassium 5.4 mmol/L (3.5-5.1) H 01/09/19 14:10 Chloride 104 mmol/L (98-107) 01/09/19 14:10 Carbon Dioxide 26.6 mmol/L (21.0-32.0) 01/09/19 14:10 Anion Gap 6.4 mmol/L (3-11) 01/09/19 14:10 BUN 40 mg/dL (7-18) H 01/09/19 14:10 Creatinine 2.59 mg/dL (0.70-1.30) H 01/09/19 14:10 Estimated GFR/1.73 m2 25.50 (mL/min/1.73m2) 01/09/19 14:10 Glucose 302 mg/dL (70-100) H 01/09/19 14:10 Lactate 1.2 mmol/L (0.6-1.4) 01/08/19 09:07 Calcium 8.8 mg/dL (8.5-10.1) 01/09/19 14:10 Magnesium 1.5 mg/dL (1.8-2.4) L 01/09/19 07:08 Total Bilirubin 0.2 mg/dL (0.2-1.0) 01/08/19 09:07 AST 10 U/L (15-37) L 01/08/19 09:07 ALT 13 U/L (16-63) L 01/08/19 09:07 Alkaline Phosphatase 138 U/L (46-116) H 01/08/19 09:07 Troponin I < 0.05 ng/mL (0.00-0.06) 01/08/19 09:07 Total Protein 7.0 g/dL (6.4-8.2) 01/08/19 09:07 Albumin 2.4 g/dL (3.4-5.0) L 01/08/19 09:07 Procalcitonin 4.3 ng/mL 01/09/19 11:30 Urine Color Yellow (Yellow) 01/08/19 10:53 Urine Clarity Clear (Clear) 01/08/19 10:53 Urine pH 5.5 (5-8) 01/08/19 10:53 Ur Specific [place] 1.015 (1.005-1.025) 01/08/19 10:53 Urine Protein 100 mg/dL (Negative) H 01/08/19 10:53 Urine Ketones Negative mg/dL (Negative) 01/08/19 10:53 Urine Blood Moderate (Negative) H 01/08/19 10:53 Urine Nitrite Negative (Negative) 01/08/19 10:53 Urine Bilirubin Negative (Negative) 01/08/19 10:53 Urine Urobilinogen 0.2 EU/dL (Up TO 0.2) 01/08/19 10:53 Ur Leukocyte Esterase Moderate (Negative) H 01/08/19 10:53 Urine RBC Not Applicable 01/08/19 10:53 Urine WBC >50 HPF (0-5) H 01/08/19 10:53 Ur Epithelial Cells Not Applicable 01/08/19 10:53 Urine Crystals Not Applicable 01/08/19 10:53 Urine Bacteria Not Applicable 01/08/19 10:53 Urine Mucus Not Applicable 01/08/19 10:53 Ur Culture Indicated? Yes 01/08/19 10:53 Urine Glucose Negative mg/dL (Negative) 01/08/19 10:53
[2019-01-09] MEDS: Normal Saline 1,000 ML 125 ML IV (20:42)
[2019-01-09] MEDS: Insulin Glargine 300 UNITS/3 ML PEN 55 UNITS SC (20:47)
[2019-01-09] MEDS: traZODone 50 MG TAB PO (20:51)
[2019-01-09] MEDS: Melatonin 3 MG TAB 6 MG PO (20:51)
[2019-01-09 21:14] VITALS: BP 133/70; PULSE 76; RESP 18; TEMP 36.4; O2SAT 100
[2019-01-09 23:26] VITALS: BP 142/91; PULSE 63; RESP 20; TEMP 37.1; O2SAT 95
[2019-01-09] MEDS: risperiDONE 1 MG TAB 2 MG PO (23:26)
[2019-01-10] MEDS: Normal Saline Flush 10 ML SYR IVP ×3 (02:01→17:23)
[2019-01-10] MEDS: Hydrocortisone SOD SUC. 100 MG VIAL 50 MG IVP ×2 (02:01→11:24)
[2019-01-10] MEDS: Levothyroxine 25 MCG TAB PO (05:12)
[2019-01-10 07:13] LABS: Abs Immature Grans 0.15 k/cumm (0.0-0.09); Absolute Basophil Count 0.01 k/cumm (0.0-0.2); Absolute Eosinophil Count 0.01 k/cumm (0.0-0.7); Absolute Lymphocyte Count 0.62 k/cumm (1.2-3.4); Absolute Monocyte Count 0.48 k/cumm (0.11-0.7); Absolute Neutrophil Count 11.31 k/cumm (1.2-6.7); Basophils % 0.1; Eosinophils % 0.1; HCT 30.5 % (40.0-50.0); HGB 8.6 g/dL (13.5-17.5); Immature Grans % 1.2; Lymphocytes % 4.9; Mean Corp. HGB Concentration 28.2 g/dL (32.0-36.0); Mean Corpuscular Hemoglobin 22.2 pg (27.0-33.0); Mean Corpuscular Volume 78.6 fL (80-95); Mean Platelet Volume 10.5 fL (8.0-11.0); Monocytes % 3.8; Neutrophils % 89.9; Platelet Count 324 x1000/uL (130-400); RBC 3.88 m/cumm (4.50-6.00); RBC Distribution Width 14.5 % (11.8-14.1); White Blood Cell Count 12.58 k/cumm (4.4-10.8)
[2019-01-10 07:25] LABS: Anion Gap 6.5 mmol/L (3-11); BUN 39 mg/dL (7-18); C-Reactive Protein 7.13 mg/dL (0.0-0.3); CO2 24.5 mmol/L (21.0-32.0); CREATININE 2.48 mg/dL (0.70-1.30); Calcium 8.8 mg/dL (8.5-10.1); Chloride 104 mmol/L (98-107); Estimated GFR 26.81 (mL/min/1.73m2); Glucose 315 mg/dL (70-100); Magnesium 1.9 mg/dL (1.8-2.4); Potassium 5.8 mmol/L (3.5-5.1); Sodium 135 mmol/L (136-145)
[2019-01-10 07:40] VITALS: BP 145/81; PULSE 55; RESP 20; TEMP 36.6; O2SAT 98
--- NOTE | 2019-01-10 07:55 | CMPROGNOTE_ITS ---
- If Service Date Differs Date of service: 01/10/19 Time of Service: 07:55 Care Management Progress Note S/O:Brendan was sitting up in a chair with the TV on dozing when CM came to see him. He woke up quickly and readily engaged in conversation. He shared how much he likes both Dr. Canela and Dr. Bravo and how nice everyone on the staff is to him. He also mentioned how much he enjoys Dr. Rodriguez but regrets that he has not seen him in a while. Brendan states he is feeling better and understands that he may be able to return to [facility] in a few days. A: Brendan is a 58 year old man admitted on 01/08/19 with Pneumonia P:Brendan will return to [facility] where he lives when medically ready. Followup care will be determined by his PCP and the staff there. He will transport via [facility] wheelchair van. CM will continue to support patient, family and discharge planning needs.
[2019-01-10] MEDS: Insulin Glargine 300 UNITS/3 ML PEN 55 UNITS SC ×2 (08:43→20:29)
[2019-01-10] MEDS: Insulin Aspart 300 UNITS/3 ML PEN SC ×5 (08:44→17:22)
[2019-01-10] MEDS: Venlafaxine 37.5 MG CAPCR 112.5 MG PO (08:46)
[2019-01-10] MEDS: Gabapentin 100 MG CAP 300 MG PO ×3 (08:46→20:19)
[2019-01-10] MEDS: Folic Acid 1 MG TAB PO (08:46)
[2019-01-10] MEDS: Cyanocobalamin 500 MCG TAB 1000 MCG PO (08:46)
[2019-01-10] MEDS: oxyCODONE 10 MG TAB PO ×2 (08:47→20:18)
[2019-01-10] MEDS: Pantoprazole 40 MG TABCR PO (08:47)
[2019-01-10] MEDS: Ferrous Sulfate 325 MG TAB PO ×2 (08:47→20:19)
[2019-01-10] MEDS: Apixaban 5 MG TAB PO ×2 (08:47→20:19)
[2019-01-10] MEDS: Lactobacillus Acidophilus CAP 1 CAP PO ×3 (08:47→20:19)
[2019-01-10] MEDS: Sodium Bicarbonate 650 MG TAB PO ×3 (08:47→20:18)
[2019-01-10] MEDS: amLODIPine 5 MG TAB PO (08:47)
[2019-01-10] MEDS: Terazosin 2 MG CAP 4 MG PO ×2 (08:48→20:19)
[2019-01-10] MEDS: cloNIDine 0.1 MG TAB PO ×3 (08:48→20:19)
[2019-01-10] MEDS: Acetaminophen 500 MG TAB 1000 MG PO ×3 (08:49→20:19)
[2019-01-10] MEDS: predniSONE 10 MG TAB PO (08:49)
[2019-01-10] MEDS: Multivitamin w/Minerals TAB 1 TAB PO (08:49)
[2019-01-10] MEDS: Ascorbic Acid 500 MG TAB 250 MG PO ×2 (08:49→20:18)
--- NOTE | 2019-01-10 11:18 | PTTR_ITS ---
Date of service: 01/10/19 Time of Service: 10:30 PT Notes Inpatient Physical Therapy Treatment Note [facility] Date: 01/10/19 SUBJECTIVE: I'm sitting up for 45 min. I sat for an hour yesterday, and it was too much. OBJECTIVE: [] BED MOBILITY/TRANSFERS Supine-sit: S Sit-stand: SBA Stand-sit: CGA Bed-Chair: CGA x2 GAIT Assistive Device: FWW Weight bearing: full Assist: CGAx2. Distance: 3' THEREX: global LE strength and conditioning while seated in recliner. See suzi wsheet for details. ASSESSMENT: tolerated session well. Happy and cooperative. PLAN: continue following established goals. TREATMENT CODE/TIME: 25 min. [id number], [id number]
[2019-01-10] MEDS: Insulin REGULAR-Human 100 UNITS/ML UNIT 10 UNITS IV (11:36)
[2019-01-10] MEDS: PIPERACILLIN/TAZO 3.375 GM in Normal Saline 50 ML IVPB ×2 (13:00→20:17)
[2019-01-10 14:19] LABS: Anion Gap 6.6 mmol/L (3-11); BUN 40 mg/dL (7-18); CO2 24.4 mmol/L (21.0-32.0); CREATININE 2.46 mg/dL (0.70-1.30); Calcium 8.9 mg/dL (8.5-10.1); Chloride 105 mmol/L (98-107); Estimated GFR 27.07 (mL/min/1.73m2); Glucose 206 mg/dL (70-100); Potassium 5.2 mmol/L (3.5-5.1); Sodium 136 mmol/L (136-145)
[2019-01-10 14:35] VITALS: BP 154/81; PULSE 56; RESP 12; TEMP 36.8; O2SAT 99
[2019-01-10] MEDS: Mylanta Suspension 30 ML CUP PO ×2 (14:53→17:34)
--- NOTE | 2019-01-10 15:27 | PGE_ITS ---
Date of Service Date of service: 01/10/19 Time of Service: 15:27 Assessment and Plan Assessment and plan (1) Fever: Status: Acute Assessment and plan: Evidence of both UTI and potential pneumonia by imaging. Also, question of diabetic foot infection. Wound cultures pending. Urine C&S with proteus, sensitive to zosyn. Blood cultures with NGTD. No change to current antibiotics. (2) Pneumonia: Status: Acute Assessment and plan: HCAP, present on admission - I think he is clinically improving. On empiric vancomycin/zosyn. - continue Recheck CXR in am. (3) UTI (urinary tract infection): Status: Acute Assessment and plan: Present on admission. Due to proteus, sensitive to zosyn. For now, continue vancomycin/zosyn. (4) Adrenal insufficiency: Status: Chronic Assessment and plan: Taper stress dose steroids. (5) CKD (chronic kidney disease): Status: Chronic Assessment and plan: with borderline hypekalemia. Cr increasing despite IVF. We are checking bladder scans to ensure no urinary retention. Continue IVF. Renally dose meds Qualifiers: Chronic kidney disease stage: unspecified stage Qualified Code(s): N18.9 - Chronic kidney disease, unspecified (6) Diabetic foot ulcer: Status: Acute Assessment and plan: POdiatry consulted. Await wound cultures. Consider XR of feet. (7) Diabetes mellitus: Status: Chronic Assessment and plan: Keep insulin dose the same as hydrocortisone dose is decreasing. Continue scheduled prandial insulin (carb coverage), continue SSI and carb consistent diet. Qualifiers: Diabetes mellitus complication detail: with polyneuropathy Diabetes mellitus complication status: with neurologic complications Diabetes mellitus retirement insulin use: with long wall shear operator use Diabetes mellitus type: type 2 Qualified Code(s): E11.42 - Type 2 diabetes mellitus with diabetic polyneuropat hy; Z79.4 - long term care pharmacist (current) use of insulin (8) Hypertension: Status: Chronic Assessment and plan: Continue home regimen of Norvasc, clonidine, and Terazosin with strict hold parameters. (9) Hypothyroidism: Status: Chronic Assessment and plan: Continue replacement therapy. (10) DVT prophylaxis: Status: Acute Assessment and plan: On therapeutic eliquis (atrial flutter). On daily PPI therapy for GI prophylaxis as well. (11) Advance directive on file: Status: Acute Assessment and plan: Full code. Subjective Subjective Interval history since last seen: Brendan states that he thinks he ate too much for lunch and now complains of abdominal discomfort. No pain, per se, and no GERD, but some nausea. Otherwise, he states he feels good. Denies dizziness, chest pain, shortness of breath. Exam Narrative Exam Narrative: General: very pleasant middle-aged male, A&Ox3, does not appear to be feeling well (nauseated). HEENT: EOMI, MMM Heart: RRR, no m/r/g Lungs: CTAB today GI: abdomen is soft, nontender, nondistended Extremities: +1 edema BLE's, wearing hill protectors Objective Objective Clinical Data: Abnormal lab results 01/10/19 01/10/19 01/10/19 Range/Units 06:35 06:35 13:58 WBC 12.58 H D (4.4-10.8) k/cumm RBC 3.88 L (4.50-6.00) m/cumm Hgb 8.6 L (13.5-17.5) g/dL Hct 30.5 L (40.0-50.0) % MCV 78.6 L (80-95) fL MCH 22.2 L (27.0-33.0) pg MCHC 28.2 L (32.0-36.0) g/dL RDW 14.5 H (11.8-14.1) % Absolute Neutrophils 11.31 H (1.2-6.7) k/cumm Absolute Lymphocytes 0.62 L (1.2-3.4) k/cumm Sodium 135 L (136-145) mmol/L Potassium 5.8 H 5.2 H (3.5-5.1) mmol/L BUN 39 H 40 H (7-18) mg/dL Creatinine 2.48 H 2.46 H (0.70-1.30) mg/dL Glucose 315 H 206 H D (70-100) mg/dL C-Reactive Protein 7.13 H (0.0-0.3) mg/dL Vital Signs Temperature 36.6 C 01/10/19 07:40 Temperature Source Tympanic 01/10/19 07:40 Pulse 55 L 01/10/19 07:40 Pulse Rhythm Regular 01/09/19 23:30 Pulse 107 H 11/15/19 10:50 Respiratory Rate 20 01/10/19 07:40 Respiratory Effort Non-Labored 01/09/19 23:30 Respiratory Depth Normal 01/09/19 23:30 Respiratory Pattern Normal 01/09/19 23:30 Blood Pressure 145/81 H 01/10/19 07:40 Blood Pressure Mean 91 01/08/19 10:46 Pulse Oximetry 98 01/10/19 07:40 Oxygen Delivery Method Nasal Cannula 01/10/19 07:40 Oxygen Flow Rate 2 01/10/19 07:40 Pain Level 4 01/10/19 08:49 Intake & Output 01/09/19 01/10/19 01/10/19 23:59 11:59 23:59 Intake Total 850 / 3300 1750 / 1750 Output Total 1220 / 2620 750 / 1200 450 / 1200 Balance -370 / 680 1000 / 550 -450 / 550 Weight 104.2 kg Intake: IV 450 / 1650 450 / 450 Oral 400 / 1650 1300 / 1300 Output: Urine 820 / 2120 500 / 750 250 / 750 Post Void Residual 0 / 0 Stool 400 / 500 250 / 450 200 / 450 Other: Urine Color Yellow Yellow Yellow Straw Urine Appearance Clear Clear Urine Odor Normal None Voiding Methods Urinal Urinal Urinal Laboratory Results WBC 12.58 k/cumm (4.4-10.8) H D 01/10/19 06:35 RBC 3.88 m/cumm (4.50-6.00) L 01/10/19 06:35 Hgb 8.6 g/dL (13.5-17.5) L 01/10/19 06:35 Hct 30.5 % (40.0-50.0) L 01/10/19 06:35 MCV 78.6 fL (80-95) L 01/10/19 06:35 MCH 22.2 pg (27.0-33.0) L 01/10/19 06:35 MCHC 28.2 g/dL (32.0-36.0) L 01/10/19 06:35 RDW 14.5 % (11.8-14.1) H 01/10/19 06:35 Plt Count 324 x1000/uL (130-400) 01/10/19 06:35 MPV 10.5 fL (8.0-11.0) 01/10/19 06:35 Immature Gran % 1.2 01/10/19 06:35 Neutrophils % 89.9 01/10/19 06:35 Lymphocytes % 4.9 01/10/19 06:35 Monocytes % 3.8 01/10/19 06:35 Eosinophils % 0.1 01/10/19 06:35 Basophils % 0.1 01/10/19 06:35 Absolute Neutrophils 11.31 k/cumm (1.2-6.7) H 01/10/19 06:35 Absolute Lymphocytes 0.62 k/cumm (1.2-3.4) L 01/10/19 06:35 Absolute Monocytes 0.48 k/cumm (0.11-0.7) 01/10/19 06:35 Absolute Eosinophils 0.01 k/cumm (0.0-0.7) 01/10/19 06:35 Absolute Basophils 0.01 k/cumm (0.0-0.2) 01/10/19 06:35 Sodium 136 mmol/L (136-145) 01/10/19 13:58 Potassium 5.2 mmol/L (3.5-5.1) H 01/10/19 13:58 Chloride 105 mmol/L (98-107) 01/10/19 13:58 Carbon Dioxide 24.4 mmol/L (21.0-32.0) 01/10/19 13:58 Anion Gap 6.6 mmol/L (3-11) 01/10/19 13:58 BUN 40 mg/dL (7-18) H 01/10/19 13:58 Creatinine 2.46 mg/dL (0.70-1.30) H 01/10/19 13:58 Estimated GFR/1.73 m2 27.07 (mL/min/1.73m2) 01/10/19 13:58 Glucose 206 mg/dL (70-100) H D 01/10/19 13:58 Lactate 1.2 mmol/L (0.6-1.4) 01/08/19 09:07 Calcium 8.9 mg/dL (8.5-10.1) 01/10/19 13:58 Magnesium 1.9 mg/dL (1.8-2.4) 01/10/19 06:35 Total Bilirubin 0.2 mg/dL (0.2-1.0) 01/08/19 09:07 AST 10 U/L (15-37) L 01/08/19 09:07 ALT 13 U/L (16-63) L 01/08/19 09:07 Alkaline Phosphatase 138 U/L (46-116) H 01/08/19 09:07 Troponin I < 0.05 ng/mL (0.00-0.06) 01/08/19 09:07 C-Reactive Protein 7.13 mg/dL (0.0-0.3) H 01/10/19 06:35 Total Protein 7.0 g/dL (6.4-8.2) 01/08/19 09:07 Albumin 2.4 g/dL (3.4-5.0) L 01/08/19 09:07 Procalcitonin 4.3 ng/mL 01/09/19 11:30 Urine Color Yellow (Yellow) 01/08/19 10:53 Urine Clarity Clear (Clear) 01/08/19 10:53 Urine pH 5.5 (5-8) 01/08/19 10:53 Ur Specific [place] 1.015 (1.005-1.025) 01/08/19 10:53 Urine Protein 100 mg/dL (Negative) H 01/08/19 10:53 Urine Ketones Negative mg/dL (Negative) 01/08/19 10:53 Urine Blood Moderate (Negative) H 01/08/19 10:53 Urine Nitrite Negative (Negative) 01/08/19 10:53 Urine Bilirubin Negative (Negative) 01/08/19 10:53 Urine Urobilinogen 0.2 EU/dL (Up TO 0.2) 01/08/19 10:53 Ur Leukocyte Esterase Moderate (Negative) H 01/08/19 10:53 Urine RBC Not Applicable 01/08/19 10:53 Urine WBC >50 HPF (0-5) H 01/08/19 10:53 Ur Epithelial Cells Not Applicable 01/08/19 10:53 Urine Crystals Not Applicable 01/08/19 10:53 Urine Bacteria Not Applicable 01/08/19 10:53 Urine Mucus Not Applicable 01/08/19 10:53 Ur Culture Indicated? Yes 01/08/19 10:53 Urine Glucose Negative mg/dL (Negative) 01/08/19 10:53
[2019-01-10] MEDS: Hydrocortisone SOD SUC. 100 MG VIAL 25 MG IVP (17:23)
[2019-01-10] MEDS: Normal Saline 1,000 ML 125 ML IV (20:17)
[2019-01-10 20:37] VITALS: BP 168/80; PULSE 58; RESP 22; TEMP 36.7; O2SAT 98
[2019-01-10] MEDS: risperiDONE 1 MG TAB 2 MG PO (23:14)
[2019-01-10] MEDS: Melatonin 3 MG TAB 6 MG PO (23:14)
[2019-01-10] MEDS: traZODone 50 MG TAB PO (23:15)
[2019-01-10] MEDS: Magnesium Chloride 64 MG TABCR 128 MG PO (23:15)
[2019-01-11 00:11] VITALS: BP 147/80; PULSE 59; RESP 18; TEMP 36.8; O2SAT 98
[2019-01-11] MEDS: Hydrocortisone SOD SUC. 100 MG VIAL 25 MG IVP ×3 (03:00→19:45)
[2019-01-11] MEDS: Normal Saline Flush 10 ML SYR IVP ×3 (03:01→19:59)
[2019-01-11] MEDS: PIPERACILLIN/TAZO 3.375 GM in Normal Saline 50 ML IVPB ×3 (03:50→22:31)
[2019-01-11] MEDS: Levothyroxine 25 MCG TAB PO (06:19)
--- NOTE | 2019-01-11 07:15 | POCOE_ITS ---
Date of service: 01/11/19 Time of Service: 07:15 History of Present Illness History of Present Illness Chief Complaint: Diabetic wounds left lower extremity [facility] Medical History Acromegaly (Chronic) Acute on chronic kidney failure (Resolved) Adrenal insufficiency (Chronic) Ambulatory dysfunction (Chronic) Anemia (Chronic) Atrial flutter, paroxysmal (Chronic) Back pain (Chronic 06/21/13) CAD (coronary artery disease) (Chronic) Cardiopulmonary arrest with successful resuscitation (Resolved) Cholelithiasis (Chronic) Chronic anxiety (Chronic) Chronic bipolar disorder (Chronic) a. With history of psychosis. Chronic cholecystitis (Chronic) Chronic insomnia (Chronic) Chronic pain (Chronic) On both Methadone and Fentanyl as well as Ultram and Naproxen. CKD (chronic kidney disease) (Chronic) Complicated UTI (urinary tract infection) (Resolved) Diabetes mellitus (Chronic) Diabetic foot ulcer (Acute) Diabetic ulcer of toe associated with diabetes mellitus due to underlying condition, with bone involvement without evidence of necrosis (Inactive) 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 (Resolved) Dyslipidemia (Chronic) Elevated troponin I level (Resolved) Endocarditis due to Staphylococcus (Resolved) Heme positive stool (Resolved) Hemorrhagic cystitis (Chronic) Hyperkalemia (Resolved) Hypertension (Chronic) Hypomagnesemia (Chronic) Hypothyroidism (Chronic) Impaired mobility and ADLs (Chronic) Inability to get out of bed (Chronic 06/21/13) Lactic acidosis (Resolved) MRSA bacteremia (Resolved) Obesity (Chronic) a. Obesity though he has had significant weight loss since last seen. Osteoarthritis of both knees (Chronic) Severe. a. [id number] bilateral knees. 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 2 diabetes mellitus (Resolved) Palliative care encounter (Chronic) DObbertin Pedal edema (Chronic) Poor self care (Chronic 06/21/13) Poorly controlled type 2 diabetes mellitus with circulatory disorder (Chronic) Pulmonary hypertension (Chronic) Rheumatoid arthritis (Chronic) Sepsis (Resolved) Septic arthritis of elbow, right (Inactive) Toxic metabolic encephalopathy (Resolved) Toxic metabolic encephalopathy (Resolved) Ulcerative colitis (Chronic) UTI (urinary tract infection) (Resolved) UTI (urinary tract infection) due to Enterococcus (Resolved) Surgical History Arthroplasty of knee (Resolved 03/18/12) irrigation and lavage right Fracture, Open Treatment (Resolved) 06[place]06[place] [place] ORIF RIGHT DISTAL HUMERUS FRACTURE History of insertion of T-tube into biliary tract (Chronic) S/P colectomy (Chronic) Social History Smoking/Tobacco Use Status: Former Tobacco Use Alcohol Intake: former Drug use: Rarely Substance use type: marijuana Housing: alf Do you feel safe at home: Yes Do you feel safe in your relationship?: Yes Exam Narrative Exam Narrative: 58-year-old white male, well-known to me, admitted with fever, UTI and pneumonia, I been asked to evaluate wounds on his lower extremities. [facility] at the [facility]. He is seen at bedside, he was resting comfortably when I entered the room. Heel protectors were on the shelf by the window. Vitals BP 147/80, pulse 59, respiration 18, temp 36.8, O2 sat at room air 98%. Morning labs are pending. Yesterday, WBCs were 12.58, hemoglobin 8.6, hematocrit 30.5 absolute neutrophils 11.31 absolute lymphocytes 0.62, hemoglobin A1c is 8.8, CRP was 7.13 He is currently receiving PIP Tazo and vancomycin. Physical exam: Both lower extremities were warm to the touch left greater than right, calves are soft to palpation without findings of DVT. The right lower extremity has no open wounds at this time with a well-healed great toe amputation at the MPJ level. The left lower extremity shows chronic venous stasis changes. There is a superficial open wound under the left third metatarsal head which appears free of gross infection. Superficial wound is noted dorsally over the left fourth PIPJ which appears to have been an abrasion and a superficial wound is still noted over the left lateral malleolus although this significantly improved from previous observation from my office. There does not appear to be any active signs of infection at this time. There is minimal fat pad preservation on the left forefoot with the third metatarsal head very easily palpable plantarly above the wound. He is densely neuropathic. He has been ambulating minimally. Impressions: Poorly controlled insulin-dependent diabetic with peripheral neuropathy with history of multiple ulcerations of the foot. Plan: Supportive therapies are to continue to the left lower extremity. Skin should be washed daily with soap and water rinse well and dried gently. Moisturizing creams applied daily to closed skin. Mepilex dressings to the left forefoot, fourth digit and left lateral malleolus. He is to wear his heel protectors at all times. If he does ambulate he needs to wear his diabetic shoe gear to offload the open wound on his left third metatarsal head to prevent worsening. Results Last Vital Signs Temp 36.8 C 01/11/19 00:11 Pulse 59 L 01/11/19 00:11 Resp 18 01/11/19 00:11 BP 147/80 H 01/11/19 00:11 Pulse Ox 98 01/11/19 00:11 Labs Result diagrams: 01/10/19 06:35 01/10/19 13:58 Labs: Laboratory Results - last 24 hr 01/10/19 01/10/19 06:35 13:58 Sodium 135 L 136 Potassium 5.8 H 5.2 H Chloride 104 105 Carbon Dioxide 24.5 24.4 Anion Gap 6.5 6.6 BUN 39 H 40 H Creatinine 2.48 H 2.46 H Estimated GFR/1.73 m2 26.81 27.07 Glucose 315 H 206 H D Calcium 8.8 8.9 Magnesium 1.9 C-Reactive Protein 7.13 H
[2019-01-11 07:35] VITALS: BP 153/81; PULSE 57; RESP 14; TEMP 36.6; O2SAT 91
[2019-01-11 07:40] LABS: Abs Immature Grans 0.14 k/cumm (0.0-0.09); Absolute Basophil Count 0.01 k/cumm (0.0-0.2); Absolute Eosinophil Count 0.09 k/cumm (0.0-0.7); Absolute Lymphocyte Count 0.63 k/cumm (1.2-3.4); Absolute Monocyte Count 0.46 k/cumm (0.11-0.7); Absolute Neutrophil Count 8.04 k/cumm (1.2-6.7); Basophils % 0.1; HCT 32.1 % (40.0-50.0); HGB 8.9 g/dL (13.5-17.5); Immature Grans % 1.5; Lymphocytes % 6.7; Mean Corp. HGB Concentration 27.7 g/dL (32.0-36.0); Mean Corpuscular Hemoglobin 21.9 pg (27.0-33.0); Mean Corpuscular Volume 79.1 fL (80-95); Mean Platelet Volume 10.1 fL (8.0-11.0); Monocytes % 4.9; Neutrophils % 85.8; Platelet Count 367 x1000/uL (130-400); RBC 4.06 m/cumm (4.50-6.00); RBC Distribution Width 14.7 % (11.8-14.1); White Blood Cell Count 9.37 k/cumm (4.4-10.8)
[2019-01-11 07:50] LABS: Anion Gap 7.5 mmol/L (3-11); BUN 40 mg/dL (7-18); CO2 28.5 mmol/L (21.0-32.0); Calcium 9.2 mg/dL (8.5-10.1); Chloride 105 mmol/L (98-107); Estimated GFR 27.85 (mL/min/1.73m2); Glucose 256 mg/dL (70-100); Sodium 141 mmol/L (136-145)
--- NOTE | 2019-01-11 08:00 | DI.RAD_ITS ---
EXAM: XR PORTABLE CHEST AP INDICATION: f/u PNA. COMPARISON: XR PORTABLE CHEST AP from 06/14/2018 XR CHEST 2V PA LATERAL from 07/09/2018 XR PORTABLE CHEST AP from 10/23/2018 XR PORTABLE CHEST AP from 01/08/2019 TECHNIQUE: 2D digital imaging was performed. FINDINGS: There has been some interval clearing of previously noted bilateral infiltrates, left greater than ri ght. Vascular prominence remains present. Calcified hilar and mediastinal lymph nodes are again not ed. There is stable mild elevation of the left diaphragm. IMPRESSION: Significant interval clearing of bilateral infiltrates. Minimal residual infiltrates persist.
[2019-01-11] MEDS: oxyCODONE 10 MG TAB PO ×2 (08:09→19:45)
[2019-01-11] MEDS: Sodium Bicarbonate 650 MG TAB PO ×3 (08:09→19:45)
[2019-01-11] MEDS: Ascorbic Acid 500 MG TAB 250 MG PO ×2 (08:09→19:44)
[2019-01-11] MEDS: Ferrous Sulfate 325 MG TAB PO ×2 (08:09→19:44)
[2019-01-11] MEDS: Venlafaxine 37.5 MG CAPCR 112.5 MG PO (08:10)
[2019-01-11] MEDS: Gabapentin 100 MG CAP 300 MG PO ×3 (08:10→23:29)
[2019-01-11] MEDS: predniSONE 10 MG TAB PO (08:10)
[2019-01-11] MEDS: Pantoprazole 40 MG TABCR PO (08:10)
[2019-01-11] MEDS: Acetaminophen 500 MG TAB 1000 MG PO ×3 (08:11→23:29)
[2019-01-11] MEDS: Cyanocobalamin 500 MCG TAB 1000 MCG PO (08:11)
[2019-01-11] MEDS: Multivitamin w/Minerals TAB 1 TAB PO (08:11)
[2019-01-11] MEDS: Apixaban 5 MG TAB PO ×2 (08:11→19:44)
[2019-01-11] MEDS: cloNIDine 0.1 MG TAB PO ×3 (08:11→19:44)
[2019-01-11] MEDS: Terazosin 2 MG CAP 4 MG PO ×2 (08:12→19:44)
[2019-01-11] MEDS: amLODIPine 5 MG TAB PO (08:12)
[2019-01-11] MEDS: Folic Acid 1 MG TAB PO (08:12)
[2019-01-11] MEDS: Lactobacillus Acidophilus CAP 1 CAP PO ×3 (08:12→19:45)
[2019-01-11 08:23] LABS: Diff Comment RBC Morph Reviewed; Hypochromasia 3+; Microcytosis 3+; Ovalocytes 2+; Poikilocytes 1+
[2019-01-11 08:43] LABS: Procalcitonin 1.3 ng/mL
[2019-01-11] MEDS: Insulin Aspart 300 UNITS/3 ML PEN SC ×6 (09:28→17:23)
[2019-01-11] MEDS: Insulin Glargine 300 UNITS/3 ML PEN 55 UNITS SC (10:00)
--- NOTE | 2019-01-11 10:04 | OTIE_ITS ---
Occupational Therapy Notes Inpatient Occupational Therapy Evaluation Date: 01/11/19 Referring Doctor: Priscila Canela MD OT Orders: Non-urgent: Limited Ability Precautions: Fall Risk, Contact PATIENT PROFILE/ADMITTING DIAGNOSIS: Pt is a 58 year old male who is well known to OT and has been admitted multiple times to [facility]. He was admitted to [facility] this time for medical management of pneumonia. 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) Palliative care encounter (Acute) Pulmonary hypertension (Chronic) Toxic metabolic encephalopathy (Resolved) Advance directive on file (Chronic) Chronic cholecystitis (Chronic) 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 2 diabetes mellitus (Ruled-out) HCAP (healthcare-associated pneumonia) (Resolved) MRSA bacteremia (Acute) Ambulatory dysfunction (Chronic) Diabetic foot ulcer (Chronic) Poorly controlled type 2 diabetes mellitus with circulatory disorder (Chronic) Adrenal insufficiency (Chronic) CKD (chronic kidney disease) (Chronic) Cardiopulmonary arrest with successful resuscitation (Resolved) Heme positive stool (Chronic) Sepsis (Resolved) Pedal edema (Chronic) Chronic insomnia (Chronic) Hypertension (Chronic) Chronic pain (Chronic) Hypothyroidism (Chronic) Obesity (Chronic) Back pain (Chronic 06/21/13) Inability to get out of bed (Chronic 06/21/13) Poor self care (Chronic 06/21/13) Chronic bipolar disorder (Chronic) CAD (coronary artery disease) (Chronic) Dyslipidemia (Chronic) Rheumatoid arthritis (Chronic) Osteoarthritis of both knees (Chronic) Cholelithiasis (Chronic) Impaired mobility and ADLs (Chronic) Hemorrhagic cystitis (Inactive) Anemia (Chronic) Chronic anxiety (Chronic) Ulcerative colitis (Chronic) Surgical History History of insertion of T-tube into biliary tract (Chronic) S/P colectomy (Chronic) Arthroplasty of knee (Resolved 03/18/12) Fracture, Open Treatment (Resolved) Current Functional Limitations: Decreased functional activity tolerance, decreased (I) in ADLs, decreased (B) UE ROM, increased pain in (R) UE decreasing gross and fine motor coordination during ADLs. Social History/Home Situation: Pt resides at [facility]. Pt is well known to OT. He had surgery on his (R) UE to remove a metal plate in his (R) elbow earlier this year. He notes that he has not had PT/OT since last admission and is lacking ROM in his (R) UE and has extreme weakness limiting his (I) in ADLs/IADLs. Equipment owned/DME: FWW which he uses for ambulation, he is a resident of SNF so all other DME are met through the facility. SUBJECTIVE: Pt was laying on the of his bed when OT arrived. He is pleasant and reports that he is planning to return to the [facility] this week. OBJECTIVE: General Observation: IV (L) UE, telemetry, T-tube, Mental Status: A&Ox3 Pain: no c/o pain ROM: RUE Shoulder flexion he was unable to perform, Passively to about 60*, elbow flexion to 100, decreased hand/digit ROM L UE Shoulder flexion ~50*, elbow flexion WFL with hard end feel for PROM STRENGTH: RUE Unable to test shoulder flexion or elbow throughout, building drafter is weak and symmetrical LUE modified testing shoulder/elbow pt is 2+/5 throughout building drafter is weak and symmetrical BALANCE: Static sitting Normal Dynamic Sitting Normal Static Standing NT Dynamic Standing NT Eating: Sitting on side of bed pt required max (A) for opening and closing containers. Pt denies all other ADLs as he is just waking up and sitting down to eat. SPECIAL TESTS: Daily Activity Limitations Standardized Measure [facility] AM -PAC ?6 clicks? Daily Activity Inpatient Short Form: Raw score: 10 Standardized score: 27.31 CMS score: 74.70% INFORMED CONSENT/EDUCATION: Pt instructed in purpose of OT Consult and plan of care. ASSESSMENT: Patient is a 58-year-old male referred to occupational therapy services for medical management of penumonia. Patient presents with clinical signs and symptoms consistent with this dx and deconditioning, as demonstrated by the following impairment level findings: Decreased (B) UE ROM, Decreased (B) UE strengthening, decreased functional activity tolerance, decreased (I) in ADLs, decreased functional dynamic simulations, unable to perform (R) UE AROM without pain and discomfort. Impairments are contributing to the following functional limitations: Difficulty performing ADL routine per pt's baseline, decreased functional mobility, decreased gross and fine motor control of (B) UE, unable to perform bathing of UE or face (I) at this time. OT recommends that pt return to [facility] when medically cleared per MD. AMPAC score 10, CMS score 74.70% Patient is assessed as a Moderate 69029 complexity based on the following: History: See Above Examination: See Above Presentation: Evolving Decision Making: AMPAC score 10, CMS score 74.70% GOALS Goals x1 week in hospital setting 1. Transfers CGA, FWW 2. Dressing: Sitting on side of bed, pt will be able to put (B) UE into the hospital gown mod (A) with min verbal cues. 3. Bathing: Sitting on side of bed pt will be able to wash face, (B) UE and abdomen min (A) and upper legs with min verbal cues. 4. Pt will be able to lift covers off his food (I) and perform (I) food to mouth translation. PLAN OF CARE/TREATMENT PLAN: 1x/day, 5 days/ week x 1week Initiate Occupational Therapy Services for bathing, dressing, grooming, toileting, eating, transfer training. DISCHARGE RECOMMENDATIONS Return to [facility] when medically cleared per MD. TREATMENT TIME/MINUTES/CODES 32580, 30 minutes (09:25) Suzanne Javier OTR/[facility]
--- NOTE | 2019-01-11 11:35 | PHARADMIT ---
Admission Pharmacy Clinical Review PNEUMONIA Code Status Full Code Current Weight Wgt-105 kg Renally Cleared and Narrow Therapeutic Index Meds CrCl~ 37mL?min Meds-OK QTc Value / Action Taken QTc-451 NA BP Control, Fever BP-153/81 Tmax-37.1C Electrolytes reviewed Na-141 K+ 5.0(was 5.8) Mag-2.0 DVT Prophylaxis Eliquis, Opiate Usage / Scheduled Bowel Regimen Ordered Yes No Plt/SCr for Heparin / Enoxaparin Plts-367 SCr- 2.40 INR for Warfarin na H/H stable, WBC/Bands H&H- 8.9/32.1 WBC-9.37 Antibiotic appropriateness Vancomycin, Zosyn Cultures and Sensitivities Wound culture pending. Blood-no growth/75hrs Surgical ABX d/c within 24 hr na DM control / Insulin Dosing BG-256 Lantus, Aspart Heart Failure (Check EF%) (ARYA's, B-Block, Diuretics) Norvasc, Hytrin, Catapres IV to PO Switch No Home Meds Reviewed Yes Home Meds Not Ordered Lasix, Trimethobenzamide, Comments CRP-7.13
--- NOTE | 2019-01-11 11:51 | CMPROGNOTE_ITS ---
- If Service Date Differs Date of service: 01/11/19 Time of Service: 11:51 Care Management Progress Note S/O:Brendan remains on IV abx, his WBC has improved. Brendan is appreciative of his care and remains acute. Brendan will return to the [facility] when medically ready per provider. A: Brenadn is a 58 year old man admitted on 01/08/19 with Pneumonia P:Brendan will return to [facility] where he lives when medically ready. Followup care will be determined by his PCP and the staff there. He will transport via [facility] wheelchair van. CM will continue to support patient, family and discharge planning needs.
--- NOTE | 2019-01-11 12:19 | PT.INTREAT ---
Date of service: 01/11/19 Time of Service: 12:19 PT Notes Inpatient Physical Therapy Treatment Note [facility] Date: 01/11/2019 PRECAUTIONS: Fall, Contact SUBJECTIVE: Brendan is pleasant and agreeable to participating in PT. He reports that he hasn't been walking for months at this point. OBJECTIVE: PAIN: No c/o pain BED MOBILITY/TRANSFERS Supine-sit: I Sit-stand: SBA Stand-sit: SBA GAIT Assistive Device: FWW Weight bearing: Full Assist: SBA x2 Distance: 4' THEREX: Patient completed a LE strengthening program, in a seated position, as per flow sheet. ASSESSMENT: Patient tolerated session well, without complaint. Patient would benefit from continued gait and transfer training for improved mobility and activity tolerance. PLAN: Continue with PTs POC TREATMENT CODE/TIME: 30 minutes; 91559, [id number]
--- NOTE | 2019-01-11 15:26 | W.PM.PROGNOT ---
Date of Service Date of service: 01/11/19 Time of Service: 15:44 Assessment and Plan Assessment and plan (1) Fever: Status: Resolved Assessment and plan: Evidence of both UTI and potential pneumonia by imaging. Per podiatry, diabetic foot ulcers are not infected at this time. Urine C&S with proteus, sensitive to zosyn. Blood cultures with NGTD. Continue zosyn (day 4). (2) Pneumonia: Status: Acute Assessment and plan: HCAP, present on admission - much better clinically and per CXR today. On empiric vancomycin/zosyn day 4 - would attempt to finish antibiotics tomorrow (3) UTI (urinary tract infection): Status: Acute Assessment and plan: Present on admission. As above (4) Adrenal insufficiency: Status: Chronic Assessment and plan: Taper stress dose steroids. (5) CKD (chronic kidney disease): Status: Chronic Assessment and plan: with borderline hypekalemia. Cr now stable. D/c IVF and monitor. Hyperkalemia better today. Qualifiers: Chronic kidney disease stage: unspecified stage Qualified Code(s): N18.9 - Chronic kidney disease, unspecified (6) Diabetic foot ulcer: Status: Chronic Assessment and plan: On B feet. No evidence of infection at this time; wound cultures are pending. For now, continue vancomycin. (7) Diabetes mellitus: Status: Chronic Assessment and plan: Increase long acting insulin; hydrocortisone dose is decreasing. Continue scheduled prandial insulin (carb coverage), continue SSI and carb consistent diet. Qualifiers: Diabetes mellitus type: type 2 Diabetes mellitus shelter insulin use: with terminal computer operator use Diabetes mellitus complication status: with neurologic complications Diabetes mellitus complication detail: with polyneuropathy Qualified Code(s): E11.42 - Type 2 diabetes mellitus with diabetic polyneuropathy; Z79.4 - MCFP (current) use of insulin (8) Hypertension: Status: Chronic Assessment and plan: Continue home regimen of Norvasc, clonidine, and Terazosin with strict hold parameters. D/c IVF. (9) Hypothyroidism: Status: Chronic Assessment and plan: Continue replacement therapy. (10) DVT prophylaxis: Status: Acute Assessment and plan: On therapeutic eliquis (atrial flutter). On daily PPI therapy for GI prophylaxis as well. (11) Advance directive on file: Status: Acute Assessment and plan: Full code. Subjective Subjective Interval history since last seen: Brendan feels better - he barely has a cough. Denies dizziness, chest pain, shortness of breath, nausea, vomiting. Exam Narrative Exam Narrative: General: very pleasant middle-aged male, sitting up at the edge of the bed, looks better HEENT: EOMI, MMM Heart: RRR, no m/r/g Lungs: CTAB GI: abdomen is soft, nontender, nondistended: cholecystostomy and ileostomy bags in place. Extremities: +1 edema BLE's, chronic venous stasis dermatitis, wearing heel protectors Objective Objective Clinical Data: Abnormal lab results 01/11/19 01/11/19 Range/Units 07:17 07:17 RBC 4.06 L (4.50-6.00) m/cumm Hgb 8.9 L (13.5-17.5) g/dL Hct 32.1 L (40.0-50.0) % MCV 79.1 L (80-95) fL MCH 21.9 L (27.0-33.0) pg MCHC 27.7 L (32.0-36.0) g/dL RDW 14.7 H (11.8-14.1) % Absolute Neutrophils 8.04 H (1.2-6.7) k/cumm Absolute Lymphocytes 0.63 L (1.2-3.4) k/cumm BUN 40 H (7-18) mg/dL Creatinine 2.40 H (0.70-1.30) mg/dL Glucose 256 H (70-100) mg/dL Vital Signs Temperature 36.6 C 01/11/19 07:35 Temperature Source Tympanic 01/11/19 07:35 Pulse 57 L 01/11/19 07:35 Pulse Rhythm Regular 01/11/19 00:11 Pulse 107 H 01/08/19 10:50 Respiratory Rate 14 01/11/19 07:35 Respiratory Effort Non-Labored 01/11/19 00:11 Respiratory Depth Shallow 01/11/19 00:11 Respiratory Pattern Normal 01/11/19 00:11 Blood Pressure 153/81 H 01/11/19 07:35 Blood Pressure Mean 91 01/08/19 10:46 Pulse Oximetry 91 L 01/11/19 07:35 Oxygen Delivery Method Room Air 01/11/19 07:35 Oxygen Flow Rate 0 01/11/19 07:35 Pain Level 4 01/11/19 07:35 Intake & Output 01/10/19 01/11/19 01/11/19 23:59 11:59 23:59 Intake Total 700 / 3930 100 / 580 480 / 580 Output Total 1751 / 2501 2050 / 2150 100 / 2150 Balance -1051 / 1429 -1950 / -1570 380 / -1570 Weight 105 kg Intake: IV 100 / 1550 100 / 100 Oral 600 / 2380 480 / 480 Output: Urine 1440 / 1940 750 / 850 100 / 850 Post Void Residual Stool 300 / 550 1300 / 1300 Other: Urine Color Yellow Pale Pale Urine Appearance Clear Clear Clear Urine Odor Normal Normal Voiding Methods Urinal Urinal Urinal Laboratory Results WBC 9.37 k/cumm (4.4-10.8) 01/11/19 07:17 RBC 4.06 m/cumm (4.50-6.00) L 01/11/19 07:17 Hgb 8.9 g/dL (13.5-17.5) L 01/11/19 07:17 Hct 32.1 % (40.0-50.0) L 01/11/19 07:17 MCV 79.1 fL (80-95) L 01/11/19 07:17 MCH 21.9 pg (27.0-33.0) L 01/11/19 07:17 MCHC 27.7 g/dL (32.0-36.0) L 01/11/19 07:17 RDW 14.7 % (11.8-14.1) H 01/11/19 07:17 Plt Count 367 x1000/uL (130-400) 01/11/19 07:17 MPV 10.1 fL (8.0-11.0) 01/11/19 07:17 Immature Gran % 1.5 01/11/19 07:17 Neutrophils % 85.8 01/11/19 07:17 Lymphocytes % 6.7 01/11/19 07:17 Monocytes % 4.9 01/11/19 07:17 Eosinophils % 1.0 01/11/19 07:17 Basophils % 0.1 01/11/19 07:17 Absolute Neutrophils 8.04 k/cumm (1.2-6.7) H 01/11/19 07:17 Absolute Lymphocytes 0.63 k/cumm (1.2-3.4) L 01/11/19 07:17 Absolute Monocytes 0.46 k/cumm (0.11-0.7) 01/11/19 07:17 Absolute Eosinophils 0.09 k/cumm (0.0-0.7) 01/11/19 07:17 Absolute Basophils 0.01 k/cumm (0.0-0.2) 01/11/19 07:17 Differential Comment Rbc morph reviewed 01/11/19 07:17 RBC Morphology See below 01/11/19 07:17 Hypochromasia 3+ 01/11/19 07:17 Poikilocytosis 1+ 01/11/19 07:17 Microcytosis 3+ 01/11/19 07:17 Ovalocytes 2+ 01/11/19 07:17 Sodium 141 mmol/L (136-145) 01/11/19 07:17 Potassium 5.0 mmol/L (3.5-5.1) 01/11/19 07:17 Chloride 105 mmol/L (98-107) 01/11/19 07:17 Carbon Dioxide 28.5 mmol/L (21.0-32.0) 01/11/19 07:17 Anion Gap 7.5 mmol/L (3-11) 01/11/19 07:17 BUN 40 mg/dL (7-18) H 01/11/19 07:17 Creatinine 2.40 mg/dL (0.70-1.30) H 01/11/19 07:17 Estimated GFR/1.73 m2 27.85 (mL/min/1.73m2) 01/11/19 07:17 Glucose 256 mg/dL (70-100) H 01/11/19 07:17 Lactate 1.2 mmol/L (0.6-1.4) 01/08/19 09:07 Calcium 9.2 mg/dL (8.5-10.1) 01/11/19 07:17 Magnesium 2.0 mg/dL (1.8-2.4) 01/11/19 07:17 Total Bilirubin 0.2 mg/dL (0.2-1.0) 01/08/19 09:07 AST 10 U/L (15-37) L 01/08/19 09:07 ALT 13 U/L (16-63) L 01/08/19 09:07 Alkaline Phosphatase 138 U/L (46-116) H 01/08/19 09:07 Troponin I < 0.05 ng/mL (0.00-0.06) 01/08/19 09:07 C-Reactive Protein 7.13 mg/dL (0.0-0.3) H 01/10/19 06:35 Total Protein 7.0 g/dL (6.4-8.2) 01/08/19 09:07 Albumin 2.4 g/dL (3.4-5.0) L 01/08/19 09:07 Procalcitonin 1.3 ng/mL 01/11/19 07:17 Urine Color Yellow (Yellow) 01/08/19 10:53 Urine Clarity Clear (Clear) 01/08/19 10:53 Urine pH 5.5 (5-8) 01/08/19 10:53 Ur Specific [place] 1.015 (1.005-1.025) 01/08/19 10:53 Urine Protein 100 mg/dL (Negative) H 01/08/19 10:53 Urine Ketones Negative mg/dL (Negative) 01/08/19 10:53 Urine Blood Moderate (Negative) H 01/08/19 10:53 Urine Nitrite Negative (Negative) 01/08/19 10:53 Urine Bilirubin Negative (Negative) 01/08/19 10:53 Urine Urobilinogen 0.2 EU/dL (Up TO 0.2) 01/08/19 10:53 Ur Leukocyte Esterase Moderate (Negative) H 01/08/19 10:53 Urine RBC Not Applicable 01/08/19 10:53 Urine WBC >50 HPF (0-5) H 01/08/19 10:53 Ur Epithelial Cells Not Applicable 01/08/19 10:53 Urine Crystals Not Applicable 01/08/19 10:53 Urine Bacteria Not Applicable 01/08/19 10:53 Urine Mucus Not Applicable 01/08/19 10:53 Ur Culture Indicated? Yes 01/08/19 10:53 Urine Glucose Negative mg/dL (Negative) 01/08/19 10:53 CXR: Significant interval clearing of bilateral infiltrates. Minimal residual infiltrates persist.
[2019-01-11 17:11] VITALS: BP 169/83; PULSE 59; RESP 16; TEMP 37; O2SAT 93
[2019-01-11 19:40] VITALS: BP 177/82; PULSE 63; RESP 20; TEMP 36.8; O2SAT 94
[2019-01-11] MEDS: Insulin Glargine 300 UNITS/3 ML PEN 60 UNITS SC (20:00)
[2019-01-11] MEDS: Magnesium Chloride 64 MG TABCR 128 MG PO (21:25)
[2019-01-11] MEDS: risperiDONE 1 MG TAB 2 MG PO (21:26)
[2019-01-11 23:30] VITALS: BP 179/85; PULSE 66; RESP 20; TEMP 37; O2SAT 93
[2019-01-11] MEDS: Melatonin 3 MG TAB 6 MG PO (23:30)
[2019-01-11] MEDS: traZODone 50 MG TAB PO (23:30)
[2019-01-12] MEDS: PIPERACILLIN/TAZO 3.375 GM in Normal Saline 50 ML IVPB ×3 (03:37→20:39)
[2019-01-12] MEDS: Levothyroxine 25 MCG TAB PO (06:48)
[2019-01-12 07:11] LABS: Abs Immature Grans 0.32 k/cumm (0.0-0.09); HCT 30.5 % (40.0-50.0); HGB 8.7 g/dL (13.5-17.5); Mean Corp. HGB Concentration 28.5 g/dL (32.0-36.0); Mean Corpuscular Hemoglobin 22.3 pg (27.0-33.0); Mean Platelet Volume 9.6 fL (8.0-11.0); Platelet Count 371 x1000/uL (130-400); RBC 3.91 m/cumm (4.50-6.00); RBC Distribution Width 14.6 % (11.8-14.1); White Blood Cell Count 7.42 k/cumm (4.4-10.8)
[2019-01-12 07:20] LABS: Anion Gap 4.8 mmol/L (3-11); BUN 40 mg/dL (7-18); CO2 29.2 mmol/L (21.0-32.0); CREATININE 2.15 mg/dL (0.70-1.30); Calcium 8.7 mg/dL (8.5-10.1); Chloride 107 mmol/L (98-107); Estimated GFR 31.62 (mL/min/1.73m2); Glucose 189 mg/dL (70-100); Magnesium 1.9 mg/dL (1.8-2.4); Potassium 4.3 mmol/L (3.5-5.1); Sodium 141 mmol/L (136-145)
[2019-01-12 07:39] LABS: Absolute Eosinophil Count 0.15 k/cumm (0.0-0.7); Absolute Lymphocyte Count 0.96 k/cumm (1.2-3.4); Absolute Monocyte Count 0.52 k/cumm (0.11-0.7); Absolute Neutrophil Count 5.57 k/cumm (1.2-6.7); Basophilic Stippling Present; Diff Comment Manual Differential; Hypochromasia 3+; Microcytosis 3+; Ovalocytes 2+; Polychromasia Present
[2019-01-12] MEDS: Hydrocortisone SOD SUC. 100 MG VIAL 25 MG IVP (07:41)
[2019-01-12] MEDS: Normal Saline Flush 10 ML SYR IVP ×3 (07:41→20:32)
[2019-01-12] MEDS: Terazosin 2 MG CAP 4 MG PO ×2 (07:42→20:33)
[2019-01-12] MEDS: Sodium Bicarbonate 650 MG TAB PO ×3 (07:42→20:34)
[2019-01-12] MEDS: Venlafaxine 37.5 MG CAPCR 112.5 MG PO (07:42)
[2019-01-12] MEDS: Gabapentin 100 MG CAP 300 MG PO ×3 (07:42→23:44)
[2019-01-12] MEDS: Pantoprazole 40 MG TABCR PO (07:43)
[2019-01-12] MEDS: oxyCODONE 10 MG TAB PO ×2 (07:43→20:34)
[2019-01-12] MEDS: Cyanocobalamin 500 MCG TAB 1000 MCG PO (07:43)
[2019-01-12] MEDS: Multivitamin w/Minerals TAB 1 TAB PO (07:43)
[2019-01-12] MEDS: Acetaminophen 500 MG TAB 1000 MG PO ×3 (07:43→23:44)
[2019-01-12] MEDS: Ascorbic Acid 500 MG TAB 250 MG PO ×2 (07:44→20:33)
[2019-01-12] MEDS: predniSONE 10 MG TAB PO ×2 (07:44→20:34)
[2019-01-12] MEDS: Apixaban 5 MG TAB PO ×2 (07:45→20:34)
[2019-01-12] MEDS: Lactobacillus Acidophilus CAP 1 CAP PO ×3 (07:45→20:34)
[2019-01-12] MEDS: Folic Acid 1 MG TAB PO (07:45)
[2019-01-12] MEDS: Fluticasone NASAL SPRAY 16 GM BTL NS (07:45)
[2019-01-12] MEDS: Ferrous Sulfate 325 MG TAB PO ×2 (07:45→20:34)
[2019-01-12] MEDS: amLODIPine 5 MG TAB PO (07:45)
[2019-01-12] MEDS: cloNIDine 0.1 MG TAB PO ×3 (07:45→20:34)
[2019-01-12 07:46] LABS: Procalcitonin 0.7 ng/mL
[2019-01-12] MEDS: Insulin Glargine 300 UNITS/3 ML PEN 60 UNITS SC ×2 (07:46→20:33)
[2019-01-12] MEDS: Insulin Aspart 300 UNITS/3 ML PEN SC ×6 (07:50→16:59)
[2019-01-12 08:42] VITALS: BP 180/95; PULSE 69; RESP 18; TEMP 36.1; O2SAT 93
--- NOTE | 2019-01-12 08:59 | PDOC.CMPRO ---
Care Management Progress Note S/O: Brendan remains on IV abx, and continues to be closely monitored at this time. CM continues to follow. A: Brendan is a 58 year old man admitted on 01/08/19 with Pneumonia P: Brendan will return to [facility], where he resides, when medically ready. He will transport via [facility] wheelchair van; coordinated by CM. CM will continue to support patient, family and discharge planning needs.
--- NOTE | 2019-01-12 09:45 | OT.INTREAT ---
Date of service: 01/12/19 Time of Service: 09:20 Occupational Therapy Notes Occupational Therapy Inpatient Treatment Note Date: 01/12/19 PRECAUTIONS: Fall, Contact SUBJECTIVE: Pt was sitting in bed when OT arrived. He was pleasant and agreeable to skilled OT session. OBJECTIVE: PAIN:no c/o pain FUNCTIONAL MOBILITY Supine-sit: (I) Sit-supine: (I) BATHING: Sitting on side of bed with max (A) set up Upper Body: (I) (B) hands, (I) (L) UE and (I) face Lower Body: (I) upper thighs, max (A) below (B) knees. GROOMING: Sitting on side of bed (I) with brushing hair TOILETING: Device: Urinal Assist: (I) PLAN: Pt is demonstrating increased functional (I), OT will continue to progress pt towards goals established at initial evaluation. TREATMENT CODES/TIME: [id number], 20 minutes (09:20) DAVID Hi/[facility]
--- NOTE | 2019-01-12 11:01 | PT.INTREAT ---
Date of service: 01/12/19 Time of Service: 11:01 PT Notes Inpatient Physical Therapy Treatment Note [facility] Date: 01/12/2019 PRECAUTIONS: Fall, Contact SUBJECTIVE: Brendan is pleasant and agreeable to participating in PT. OBJECTIVE: PAIN: No c/o pain BED MOBILITY/TRANSFERS Supine-sit: I Sit-stand: S Stand-sit: S GAIT Assistive Device: FWW Weight bearing: Full Assist: SBA x2 Distance: 12' THEREX: Patient completed a LE strengthening program, in a seated position, as per flow sheet. ASSESSMENT: Patient tolerated session well, without complaint. Patient would benefit from continued gait and transfer training for improved mobility and activity tolerance. PLAN: Continue with PTs POC TREATMENT CODE/TIME: 25 minutes; 73898, [id number]
--- NOTE | 2019-01-12 14:43 | PGE_ITS ---
Date of Service Date of service: 01/12/19 Time of Service: 14:43 Assessment and Plan Assessment and plan (1) Fever: Status: Resolved Assessment and plan: Evidence of both UTI and potential pneumonia by imaging. Per podiatry, diabetic foot ulcers are not infected at this time. Urine C&S with proteus, sensitive to zosyn. Blood cultures with NGTD. Continue zosyn (day 5). (2) Pneumonia: Status: Acute Assessment and plan: HCAP, present on admission - much better clinically and per CXR today. D/c vancomycin, continue zosyn (day 5) - mostly for UTI at this point (3) UTI (urinary tract infection): Status: Acute Assessment and plan: Present on admission. As above No evidence of urinary retention. On discharge, to complete a week of antibiotics total - ok to transition to keflex or ceftin. (4) Adrenal insufficiency: Status: Chronic Assessment and plan: Transition steroids to PO today (5) CKD (chronic kidney disease): Status: Chronic Assessment and plan: with borderline hypekalemia. Now better. Will give 1 dose of lasix as he is a tiny bit fluid overloaded. Qualifiers: Chronic kidney disease stage: unspecified stage Qualified Code(s): N18.9 - Chronic kidney disease, unspecified (6) Diabetic foot ulcer: Status: Chronic Assessment and plan: On B feet. No evidence of infection at this time; wound cultures without MRSA. D/c vancomycin. Continue wound care as per Dr Ashford. (7) Diabetes mellitus: Status: Chronic Assessment and plan: No change to current insulin regimen. Continue scheduled prandial insulin (carb coverage), continue SSI and carb consistent diet. 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 Decrease steroids - likely contributing. Will give 1 dose of lasix. (9) Hypothyroidism: Status: Chronic Assessment and plan: Continue replacement therapy. (10) DVT prophylaxis: Status: Acute Assessment and plan: On therapeutic eliquis (atrial flutter). On daily PPI therapy for GI prophylaxis as well. (11) Advance directive on file: Status: Acute Assessment and plan: Full code. Subjective Subjective Interval history since last seen: Brendan states he is feeling pretty good. He denies any dizziness, chest pain, shortness of breath, nausea, pain. He thinks he will be ready to return to the [facility] tomorrow. Exam Narrative Exam Narrative: General: very pleasant middle-aged male, laying comfortably in bed, A&Ox3 HEENT: EOMI, MMM Heart: RRR, no m/r/g Lungs: CTAB GI: abdomen is soft, nontender, nondistended: cholecystostomy and ileostomy bags in place. Extremities: 2+ edema BLE's, worse today; chronic venous stasis dermatitis, wearing heel protectors Objective Objective Clinical Data: Abnormal lab results 01/12/19 01/12/19 Range/Units 06:40 06:40 RBC 3.91 L (4.50-6.00) m/cumm Hgb 8.7 L (13.5-17.5) g/dL Hct 30.5 L (40.0-50.0) % MCV 78.0 L (80-95) fL MCH 22.3 L (27.0-33.0) pg MCHC 28.5 L (32.0-36.0) g/dL RDW 14.6 H (11.8-14.1) % Absolute Lymphocytes 0.96 L (1.2-3.4) k/cumm BUN 40 H (7-18) mg/dL Creatinine 2.15 H (0.70-1.30) mg/dL Glucose 189 H (70-100) mg/dL Vital Signs Temperature 36.1 C L 01/12/19 08:42 Temperature Source Tympanic 01/12/19 08:42 Pulse 69 01/12/19 08:42 Pulse Rhythm Regular 01/12/19 07:40 Pulse 107 H 01/08/19 10:50 Respiratory Rate 18 01/12/19 08:42 Respiratory Effort 01/12/19 07:40 Respiratory Depth Normal 01/12/19 07:40 Respiratory Pattern Normal 01/12/19 07:40 Blood Pressure 180/95 H 01/12/19 08:42 Blood Pressure Mean 91 01/08/19 10:46 Pulse Oximetry 93 L 01/12/19 08:42 Oxygen Delivery Method Room Air 01/12/19 08:42 Oxygen Flow Rate 0 01/12/19 08:42 Pain Level 3 01/12/19 08:42 Intake & Output 01/11/19 01/12/19 01/12/19 23:59 11:59 23:59 Intake Total 1280 / 1630 580 / 1060 480 / 1060 Output Total 1700 / 3750 1050 / 1050 Balance -420 / -2120 -470 / 10 480 / 10 Weight 107.3 kg Intake: IV 320 / 670 100 / 100 Oral 960 / 960 480 / 960 480 / 960 Output: Urine 800 / 1550 650 / 650 Stool 900 / 2200 400 / 400 Other: Urine Color Yellow Yellow Urine Appearance Clear Clear Urine Odor None Normal Stool Size Moderate Stool Characteristics Soft Soft Brown Liquid Brown Voiding Methods Urinal Urinal Laboratory Results WBC 7.42 k/cumm (4.4-10.8) 01/12/19 06:40 RBC 3.91 m/cumm (4.50-6.00) L 01/12/19 06:40 Hgb 8.7 g/dL (13.5-17.5) L 01/12/19 06:40 Hct 30.5 % (40.0-50.0) L 01/12/19 06:40 MCV 78.0 fL (80-95) L 01/12/19 06:40 MCH 22.3 pg (27.0-33.0) L 01/12/19 06:40 MCHC 28.5 g/dL (32.0-36.0) L 01/12/19 06:40 RDW 14.6 % (11.8-14.1) H 01/12/19 06:40 Plt Count 371 x1000/uL (130-400) 01/12/19 06:40 MPV 9.6 fL (8.0-11.0) 01/12/19 06:40 Immature Gran % See Differential 01/12/19 06:40 Neutrophils % 75.0 01/12/19 06:40 Lymphocytes % 13.0 01/12/19 06:40 Monocytes % 7.0 01/12/19 06:40 Eosinophils % 2.0 01/12/19 06:40 Basophils % 0.0 01/12/19 06:40 Metamyelocytes % 1.0 % 01/12/19 06:40 Myelocytes % 2.0 % 01/12/19 06:40 Absolute Neutrophils 5.57 k/cumm (1.2-6.7) 01/12/19 06:40 Absolute Lymphocytes 0.96 k/cumm (1.2-3.4) L 01/12/19 06:40 Absolute Monocytes 0.52 k/cumm (0.11-0.7) 01/12/19 06:40 Absolute Eosinophils 0.15 k/cumm (0.0-0.7) 01/12/19 06:40 Absolute Basophils 0.00 k/cumm (0.0-0.2) 01/12/19 06:40 Differential Comment Manual differential 01/12/19 06:40 RBC Morphology See below 01/12/19 06:40 Polychromasia Present 01/12/19 06:40 Hypochromasia 3+ 01/12/19 06:40 Poikilocytosis 1+ 01/11/19 07:17 Basophilic Stippling Present 01/12/19 06:40 Microcytosis 3+ 01/12/19 06:40 Ovalocytes 2+ 01/12/19 06:40 Sodium 141 mmol/L (136-145) 01/12/19 06:40 Potassium 4.3 mmol/L (3.5-5.1) 01/12/19 06:40 Chloride 107 mmol/L (98-107) 01/12/19 06:40 Carbon Dioxide 29.2 mmol/L (21.0-32.0) 01/12/19 06:40 Anion Gap 4.8 mmol/L (3-11) 01/12/19 06:40 BUN 40 mg/dL (7-18) H 01/12/19 06:40 Creatinine 2.15 mg/dL (0.70-1.30) H 01/12/19 06:40 Estimated GFR/1.73 m2 31.62 (mL/min/1.73m2) 01/12/19 06:40 Glucose 189 mg/dL (70-100) H 01/12/19 06:40 Lactate 1.2 mmol/L (0.6-1.4) 01/08/19 09:07 Calcium 8.7 mg/dL (8.5-10.1) 01/12/19 06:40 Magnesium 1.9 mg/dL (1.8-2.4) 01/12/19 06:40 Total Bilirubin 0.2 mg/dL (0.2-1.0) 01/08/19 09:07 AST 10 U/L (15-37) L 01/08/19 09:07 ALT 13 U/L (16-63) L 01/08/19 09:07 Alkaline Phosphatase 138 U/L (46-116) H 01/08/19 09:07 Troponin I < 0.05 ng/mL (0.00-0.06) 01/08/19 09:07 C-Reactive Protein 7.13 mg/dL (0.0-0.3) H 01/10/19 06:35 Total Protein 7.0 g/dL (6.4-8.2) 01/08/19 09:07 Albumin 2.4 g/dL (3.4-5.0) L 01/08/19 09:07 Procalcitonin 0.7 ng/mL 01/12/19 06:40 Urine Color Yellow (Yellow) 01/08/19 10:53 Urine Clarity Clear (Clear) 01/08/19 10:53 Urine pH 5.5 (5-8) 01/08/19 10:53 Ur Specific [place] 1.015 (1.005-1.025) 01/08/19 10:53 Urine Protein 100 mg/dL (Negative) H 01/08/19 10:53 Urine Ketones Negative mg/dL (Negative) 01/08/19 10:53 Urine Blood Moderate (Negative) H 01/08/19 10:53 Urine Nitrite Negative (Negative) 01/08/19 10:53 Urine Bilirubin Negative (Negative) 01/08/19 10:53 Urine Urobilinogen 0.2 EU/dL (Up TO 0.2) 01/08/19 10:53 Ur Leukocyte Esterase Moderate (Negative) H 01/08/19 10:53 Urine RBC Not Applicable 01/08/19 10:53 Urine WBC >50 HPF (0-5) H 01/08/19 10:53 Ur Epithelial Cells Not Applicable 01/08/19 10:53 Urine Crystals Not Applicable 01/08/19 10:53 Urine Bacteria Not Applicable 01/08/19 10:53 Urine Mucus Not Applicable 01/08/19 10:53 Ur Culture Indicated? Yes 01/08/19 10:53 Urine Glucose Negative mg/dL (Negative) 01/08/19 10:53
[2019-01-12] MEDS: Furosemide 20 MG/2 ML VIAL IVP (15:19)
[2019-01-12 15:48] VITALS: BP 168/87; PULSE 67; RESP 19; TEMP 37; O2SAT 97
--- NOTE | 2019-01-12 16:28 | CHAPLAIN ---
Brendan was watching TV when I visited. He said he is feeling better and may return to the [facility] tomorrow. He came in with a fast heart rate and pneumonia, he said. Brendan and I know each other from his previous admissions.
[2019-01-12 20:53] VITALS: BP 162/82; PULSE 61; RESP 18; TEMP 36.4; O2SAT 95
[2019-01-12] MEDS: Magnesium Chloride 64 MG TABCR 128 MG PO (23:44)
[2019-01-12] MEDS: Melatonin 3 MG TAB 6 MG PO (23:44)
[2019-01-12] MEDS: traZODone 50 MG TAB PO (23:45)
[2019-01-12] MEDS: risperiDONE 1 MG TAB 2 MG PO (23:45)
[2019-01-13 00:04] VITALS: BP 182/94; PULSE 64; RESP 18; TEMP 37; O2SAT 95
[2019-01-13] MEDS: PIPERACILLIN/TAZO 3.375 GM in Normal Saline 50 ML IVPB (03:50)
[2019-01-13] MEDS: Levothyroxine 25 MCG TAB PO (05:40)
[2019-01-13 07:46] LABS: Abs Immature Grans 0.54 k/cumm (0.0-0.09); HCT 33.1 % (40.0-50.0); HGB 9.5 g/dL (13.5-17.5); Mean Corp. HGB Concentration 28.7 g/dL (32.0-36.0); Mean Corpuscular Hemoglobin 22.1 pg (27.0-33.0); Mean Platelet Volume 9.8 fL (8.0-11.0); Platelet Count 363 x1000/uL (130-400); RBC Distribution Width 14.7 % (11.8-14.1); White Blood Cell Count 9.18 k/cumm (4.4-10.8)
[2019-01-13 07:52] LABS: Anion Gap 6.7 mmol/L (3-11); BUN 42 mg/dL (7-18); CO2 29.3 mmol/L (21.0-32.0); CREATININE 1.96 mg/dL (0.70-1.30); Calcium 8.8 mg/dL (8.5-10.1); Chloride 106 mmol/L (98-107); Estimated GFR 35.18 (mL/min/1.73m2); Glucose 159 mg/dL (74-106); Magnesium 1.9 mg/dL (1.8-2.4); Sodium 142 mmol/L (136-145)
[2019-01-13 08:00] VITALS: BP 198/80; PULSE 64; RESP 20; TEMP 36.6; O2SAT 95
[2019-01-13 08:23] LABS: Procalcitonin 0.4 ng/mL
[2019-01-13 08:31] LABS: Absolute Lymphocyte Count 1.01 k/cumm (1.2-3.4); Absolute Monocyte Count 0.55 k/cumm (0.11-0.7); Absolute Neutrophil Count 7.25 k/cumm (1.2-6.7)
[2019-01-13 08:32] LABS: Anisocytosis 1+; Diff Comment Manual Differential; Hypochromasia 2+; Microcytosis 2+; Ovalocytes 2+; Polychromasia Present
[2019-01-13] MEDS: Acetaminophen 500 MG TAB 1000 MG PO (08:38)
[2019-01-13] MEDS: Apixaban 5 MG TAB PO (08:39)
[2019-01-13] MEDS: Lactobacillus Acidophilus CAP 1 CAP PO (08:39)
[2019-01-13] MEDS: amLODIPine 5 MG TAB PO ×2 (08:39→12:25)
[2019-01-13] MEDS: Terazosin 2 MG CAP 4 MG PO (08:39)
[2019-01-13] MEDS: Multivitamin w/Minerals TAB 1 TAB PO (08:39)
[2019-01-13] MEDS: Venlafaxine 37.5 MG CAPCR 112.5 MG PO (08:39)
[2019-01-13] MEDS: Cyanocobalamin 500 MCG TAB 1000 MCG PO (08:39)
[2019-01-13] MEDS: Sodium Bicarbonate 650 MG TAB PO (08:40)
[2019-01-13] MEDS: predniSONE 10 MG, predniSONE 5 MG 15 MG PO (08:40)
[2019-01-13] MEDS: Pantoprazole 40 MG TABCR PO (08:40)
[2019-01-13] MEDS: Gabapentin 100 MG CAP 300 MG PO (08:40)
[2019-01-13] MEDS: oxyCODONE 10 MG TAB PO (08:41)
[2019-01-13] MEDS: Ferrous Sulfate 325 MG TAB PO (08:41)
[2019-01-13] MEDS: cloNIDine 0.1 MG TAB PO (08:41)
[2019-01-13] MEDS: Folic Acid 1 MG TAB PO (08:41)
[2019-01-13] MEDS: Ascorbic Acid 500 MG TAB 250 MG PO (08:41)
[2019-01-13] MEDS: Fluticasone NASAL SPRAY 16 GM BTL NS (08:42)
[2019-01-13] MEDS: Insulin Aspart 300 UNITS/3 ML PEN SC ×4 (08:42→12:16)
[2019-01-13] MEDS: Insulin Glargine 300 UNITS/3 ML PEN 60 UNITS SC (08:45)
[2019-01-13 10:03] VITALS: BP 182/81; PULSE 66
--- NOTE | 2019-01-13 10:07 | OT.INTREAT ---
Date of service: 01/13/19 Time of Service: 09:30 Occupational Therapy Notes Occupational Therapy Inpatient Treatment Note Date: 01/13/19 PRECAUTIONS: Fall, Contact SUBJECTIVE: Pt was sitting in bed when OT arrived. He reports that the plan is for him to return to the [facility] today. He states that he feels good today and notes that he slept well. OBJECTIVE: PAIN:no c/o pain FUNCTIONAL MOBILITY Supine-sit: (I) Sit-supine: (I) BATHING: Sitting on side of bed with max (A) set up Upper Body: (I) (B) hands, (I) (L) UE and (I) face, min (A) with ears Lower Body: (I) upper thighs, max (A) below (B) knees performed prior to OT arrival. GROOMING: Sitting on side of bed (I) with brushing hair, pt denies brushing teeth PLAN: Pt reports that the plan is for him to return to the [facility] today. OT feels that pt has increased his functional (I) and is demonstrating good ROM for performance of his ADL/IADLs. TREATMENT CODES/TIME: [id number], 20 minutes (09:30) Suzanne Javier OTR/[facility]
--- NOTE | 2019-01-13 10:10 | PDOC.CMDIS ---
LACE Index Scoring Tool - Questions: Length of Stay (in days): 4 - 6 Acuity (Admit via E.D.?): Yes Comorbidities: Diabetes w/o Complication, Liver or Renal Disease E.D. Visits: 9 - Answers: Total Score: 16 Risk of Readmission: High Risk Care Management Discharge Discharge Plan: Brendan will be discharged back to the [facility] when he is medically ready. He will transport via [facility] W/C Van coordinated by this group underwriter. Patient/Family Education Needs: Review of discharge instructions, discuss Ask Me Three. Services Needed at Discharge: Long Term Facility, Transportation
[2019-01-13] MEDS: Furosemide 20 MG/2 ML VIAL IVP (10:59)
[2019-01-13] MEDS: Normal Saline Flush 10 ML SYR IVP (11:00)
--- NOTE | 2019-01-13 11:47 | DSE_ITS ---
Date of service: 01/13/19 Time of Service: 11:47 DS: Diagnosis Discharge Diagnosis (1) Fever: Status: Resolved (2) Pneumonia: Status: Acute (3) UTI (urinary tract infection): Status: Acute (4) Adrenal insufficiency: Status: Chronic (5) CKD (chronic kidney disease): Status: Chronic (6) Diabetic foot ulcer: Status: Chronic (7) Diabetes mellitus: Status: Chronic (8) Hypertension: Status: Chronic (9) Hypothyroidism: Status: Chronic Discharge Plan Disposition Patient Disposition: SNF (LEVEL 1) [facility] Condition: Stable Discharge Details Chief Complaint: SOB Clinical Impression: Pneumonia Reason For Visit: PNEUMONIA Admit Date/Time: 01/08/19 10:10 Admit Provider: Ariel Bravo Attending Provider: Ariel Bravo Primary Care Provider: Anne Horowitz ED Provider: Calderon Del Cid Hospital Course Hospital Course: Mr Corley is a 58 year old male with PMHx of chronic adrenal insufficiency due to chronic steroid use for Crohn's disease and RA, as well as difficult to control hypertension, IDDM2, recurrent UTI's and pneumonias, who was admitted to [facility] on 01/08/19 with acute on chronic adrenal insufficiency due to HCAP and Proteus UTI, present on admission. He was empirically treated with vancomycin, zosyn, and received stress dose steroids, which were tapered and transitioned to PO prior to discharge. Hyperkalemia was also an issue, associated with his adrenal insufficiency, resolving by the time of discharge. Hyperkalemia was treated with veltassa and boluses of intravenous insulin as the blood sugar did become elevated (no DKA). The patient's pneumonia has clinically resolved, but he could use 2 more days of oral antibiotics for his proteus UTI - due to sensitivities, keflex is being chosen on discharge. He was evaluated by Dr Ashford for his poorly healing diabetic ulcers - these are not felt to be infected. Podiatry care instructions are as follows: Skin should be washed daily with soap and water rinse well and dried gently. Moisturizing creams applied daily to closed skin. Mepilex dressings to the left forefoot, fourth digit and left lateral malleolus. He is to wear his heel protectors at all times. If he does ambulate he needs to wear his diabetic shoe gear to offload the open wound on his left third metatarsal head to prevent worsening. His blood pressure is not optimally controlled at the time of discharge, but is likely a response to higher dose of steroids the patient is receiving here. No adjustments are being made to his blood pressure regimen at the time of discharge, but this will need to be followed up at the [facility], where he is being discharged today. His discharge summary and process took 45 minutes on the day of discharge. He is medically stable for discharge. Home Meds and New Rx's Prescriptions: New prednisone 5 mg Tablet See Rx Instructions .ROUTE .COMPLEX Qty: 20 RF: 0 cephalexin [Keflex] 250 mg capsule 250 mg PO Q8H Qty: 6 RF: 0 Continued loperamide 2 mg Capsule 2 mg PO QID PRNRF: 0 cyanocobalamin (vitamin B-12) 1,000 mcg Tablet 1,000 mcg PO DAILY RF: 0 folic acid 1 mg Tablet 1 mg PO DAILY RF: 0 ferrous sulfate 325 mg (65 mg iron) Tablet 325 mg PO BID Qty: 0 RF: 0 ascorbic acid (vitamin C) [Vitamin C] 250 mg Tablet 1 tab PO BID RF: 0 Centrum Complete 18-400 mg-mcg Tablet 1 tab PO DAILY RF: 0 acidophilus-pectin, citrus 25 million cell -100 mg Tablet 1 cap PO TID Qty: 0 RF: 0 trazodone 50 mg Tablet 50 mg PO HS Qty: 30 RF: 0 levothyroxine 25 mcg Tablet 25 mcg PO DAILY@0600 Qty: 30 RF: 0 ipratropium-albuterol 0.5 mg-3 mg(2.5 mg base)/3 mL Solution For Nebulization 3 ml UPD Q6H PRN PRNQty: 1 RF: 0 fluticasone propionate 50 mcg/actuation [place],Suspension 0 g NS DAILY Qty: 1 RF: 0 Eliquis 5 mg Tablet 5 mg PO BID Qty: 60 RF: 0 Novolog Flexpen U-100 Insulin 100 unit/mL Insulin Pen See Rx Instructions .ROUTE .COMPLEX Qty: 15 RF: 0 pantoprazole 40 mg Tablet,Delayed Release (Dr/Ec) 40 mg PO DAILY Qty: 60 RF: 0 melatonin 3 mg Tablet Extended Release 6 mg PO HS Qty: 30 RF: 0 sodium bicarbonate 650 mg Tablet 650 mg PO TID Qty: 90 RF: 0 trimethobenzamide 300 mg Capsule 300 mg PO TID PRN PRN (Reason: Nausea) Qty: 30 RF: 0 calcium carbonate-vitamin D3 [Calcium 500 + D] 500 mg(1,250mg) -400 unit Tablet 1 tab PO BID RF: 0 oxycodone 5 mg capsule 10 mg PO BID RF: 0 Lantus Solostar U-100 Insulin 100 unit/mL (3 mL) insulin pen 48 unit subcut BID RF: 0 furosemide 40 mg Tablet 40 mg PO DAILY Qty: 0 RF: 0 amlodipine 5 mg Tablet 5 mg PO DAILY Qty: 0 RF: 0 clonidine HCl [Catapres] 0.1 mg Tablet 0.1 mg PO TID Qty: 0 RF: 0 risperidone [Risperdal] 2 mg Tablet 2 mg PO DAILY RF: 0 acetaminophen [Tylenol] 325 mg tablet 1,000 mg PO TID RF: 0 gabapentin 100 mg capsule 300 mg PO TID RF: 0 terazosin 2 mg Capsule 4 mg PO BID Qty: 0 RF: 0 hydroxyzine HCl 25 mg Tablet 25 mg PO Q6H PRN PRN (Reason: Itching) Qty: 0 RF: 0 magnesium chloride [Mag 64] 64 mg Tablet,Delayed Release (Dr/Ec) 64 mg PO BID Qty: 0 RF: 0 venlafaxine [Effexor XR] 37.5 mg Capsule,Extended Release 24hr 112.5 mg PO DAILY RF: 0 Discontinued prednisone 10 mg Tablet 10 mg PO DAILY Qty: 0 RF: 0 prednisone 10 mg Tablet 10 mg PO DAILY Qty: 0 RF: 0 prednisone 10 mg tablet 10 mg PO DAILY Qty: 27 RF: 0 Discharge Instructions Instructions: Cephalexin (By mouth), Urinary Tract Infection in Men (DC), Bacterial Pneumonia (DC) Additional Instructions: Finish your steroid taper and antibiotics as prescribed. Return to the hospital with any fever, bleeding, chest pain or shortness of breath. SNF: check blood pressure at least 3 times a day. Inform your attending if SBP>180. Resume dressing changes per Dr Ashford Stand Alone Forms: Nursing Discharge Form Referrals: Anne Horowitz MD, [place] [Primary Care Provider] - Activity:: Activity as Tolerated Equipment/Supplies:: No Equipment Needed Diet:: heart healthy/carb consistent Discharge Orders Discharge Orders: Discharge Order (Routine); Ordered 01/13/19 Ordered By: Priscila Canela DS: Summary Status at Discharge Functional status at discharge: uses cane/walker Overall status at discharge: patient is back to baseline Mental Status: mental status grossly normal Speech and Movement: speech and movement normal Mood: congruent mood Affect: normal affect Exam Narrative Exam Narrative: General: very pleasant middle-aged male, laying comfortably in bed, A&Ox3 HEENT: EOMI, MMM Heart: RRR, no m/r/g Lungs: CTAB GI: abdomen is soft, nontender, nondistended: cholecystostomy and ileostomy bags in place. Extremities: 2+ edema BLE's, worse today; chronic venous stasis dermatitis, wearing heel protectors Psych Mental Status: mental status grossly normal Speech and Movement: speech and movement normal Mood: congruent mood Affect: normal affect DS: Data Vitals/I&O Vitals and I&O: Vital Signs Temperature 36.6 C 01/13/19 08:00 Temperature Source Tympanic 01/13/19 08:00 Pulse 66 01/13/19 10:03 Pulse Rhythm Regular 01/13/19 08:30 Pulse 107 H 01/08/19 10:50 Respiratory Rate 20 01/13/19 08:00 Respiratory Effort Non-Labored 01/13/19 08:30 Respiratory Depth Normal 01/13/19 08:30 Respiratory Pattern Normal 01/13/19 08:30 Blood Pressure 182/81 H 01/13/19 10:03 Blood Pressure Mean 91 01/08/19 10:46 Pulse Oximetry 95 01/13/19 08:00 Oxygen Delivery Method Room Air 01/13/19 08:00 Oxygen Flow Rate 0 01/13/19 08:00 Pain Level 3 01/13/19 08:41 Intake & Output 01/12/19 01/12/19 01/13/19 11:59 23:59 11:59 Intake Total 580 / 1860 1280 / 1860 50 / 50 Output Total 1250 / 3575 2325 / 3575 2099 / 2099 Balance -670 / -5 -5 / -1714 -2049 / Weight 107.3 kg Intake: IV 100 / 160 60 / 160 50 / 50 Oral 480 / 1700 1220 / 1700 Output: Urine 650 / 2625 1975 / 2625 1350 / 1350 Stool 600 / 950 350 / 950 750 / 750 Other: Urine Color Yellow Yellow Yellow Urine Appearance Clear Clear Clear Urine Odor Normal Normal Normal Stool Size Moderate Stool Characteristics Soft Liquid Liquid Brown Voiding Methods Urinal Urinal Urinal Data Completed and Pending Completed studies during hospitalization [Text1]: CXR 01/08/19: 1. Bilateral perihilar infiltrates suspicious for pneumonia. 2. Small bilateral pleural effusions. 3. Prominence of the right hilum. Differential considerations include focal area of consolidation or adenopathy. Mass cannot be entirely excluded. Please correlate clinically. CXR 01/11/19: Significant interval clearing of bilateral infiltrates. Minimal residual infiltrates persist. Labs on day of discharge: Labs from last 24 hours 01/13/19 01/13/19 01/13/19 06:40 06:40 06:40 WBC 9.18 RBC 4.30 L Hgb 9.5 L Hct 33.1 L MCV 77.0 L MCH 22.1 L MCHC 28.7 L RDW 14.7 H Plt Count 363 MPV 9.8 Immature Gran % See Differential Neutrophils % 78.0 Band Neutrophils % 1.0 Lymphocytes % 11.0 Monocytes % 6.0 Eosinophils % 0.0 Basophils % 0.0 Metamyelocytes % 2.0 Myelocytes % 2.0 Absolute Neutrophils 7.25 H Absolute Lymphocytes 1.01 L Absolute Monocytes 0.55 Absolute Eosinophils 0.00 Absolute Basophils 0.00 Differential Comment Manual differential RBC Morphology See below Polychromasia Present Hypochromasia 2+ Anisocytosis 1+ Microcytosis 2+ Ovalocytes 2+ Sodium 142 Potassium 4.0 Chloride 106 Carbon Dioxide 29.3 Anion Gap 6.7 BUN 42 H Creatinine 1.96 H Estimated GFR/1.73 m2 35.18 Glucose 159 H Calcium 8.8 Magnesium 1.9 Procalcitonin 0.4 PFSH Medical History Acromegaly (Chronic) Acute on chronic kidney failure (Resolved) Adrenal insufficiency (Chronic) Ambulatory dysfunction (Chronic) Anemia (Chronic) Atrial flutter, paroxysmal (Chronic) Back pain (Chronic 06/21/13) CAD (coronary artery disease) (Chronic) Cardiopulmonary arrest with successful resuscitation (Resolved) Cholelithiasis (Chronic) Chronic anxiety (Chronic) Chronic bipolar disorder (Chronic) a. With history of psychosis. Chronic cholecystitis (Chronic) Chronic insomnia (Chronic) Chronic pain (Chronic) On both Methadone and Fentanyl as well as Ultram and Naproxen. CKD (chronic kidney disease) (Chronic) Complicated UTI (urinary tract infection) (Resolved) Diabetes mellitus (Chronic) Diabetic foot ulcer (Acute) Diabetic ulcer of toe associated with diabetes mellitus due to underlying condition, with bone involvement without evidence of necrosis (Inactive) 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 (Resolved) Dyslipidemia (Chronic) Elevated troponin I level (Resolved) Endocarditis due to Staphylococcus (Resolved) Heme positive stool (Resolved) Hemorrhagic cystitis (Chronic) Hyperkalemia (Resolved) Hypertension (Chronic) Hypomagnesemia (Chronic) Hypothyroidism (Chronic) Impaired mobility and ADLs (Chronic) Inability to get out of bed (Chronic 06/21/13) Lactic acidosis (Resolved) MRSA bacteremia (Resolved) Obesity (Chronic) a. Obesity though he has had significant weight loss since last seen. Osteoarthritis of both knees (Chronic) Severe. a. [id number] bilateral knees. 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 2 diabetes mellitus (Resolved) Palliative care encounter (Chronic) DObbertin Pedal edema (Chronic) Poor self care (Chronic 06/21/13) Poorly controlled type 2 diabetes mellitus with circulatory disorder (Chronic) Pulmonary hypertension (Chronic) Rheumatoid arthritis (Chronic) Sepsis (Resolved) Septic arthritis of elbow, right (Inactive) Toxic metabolic encephalopathy (Resolved) Toxic metabolic encephalopathy (Resolved) Ulcerative colitis (Chronic) UTI (urinary tract infection) (Resolved) UTI (urinary tract infection) due to Enterococcus (Resolved) Surgical History Arthroplasty of knee (Resolved 03/18/12) irrigation and lavage right Fracture, Open Treatment (Resolved) 06/06/17[place] [place] S/P ORIF RIGHT DISTAL HUMERUS FRACTURE History of insertion of T-tube into biliary tract (Chronic) S/P colectomy (Chronic) Social History Smoking/Tobacco Use Status: Former Tobacco Use Alcohol Intake: former Drug use: Rarely Substance use type: marijuana Housing: [facility] Do you feel safe at home: Yes Do you feel safe in your relationship?: Yes
[2019-01-13 12:16] VITALS: BP 185/83; PULSE 63
--- NOTE | 2019-01-13 20:35 | PCNE_ITS ---
Date of service: 01/13/19 Time of Service: 11:22 History of Present Illness History of Present Illness Chief Complaint: Febrile Narrative: Brendan is a 58-year-old man who has multiple comorbidities including RA, diabetes, ambulation difficulties, gallbladder disease, and bipolar disease. Below is his hx from admission: History of Present Illness Chief Complaint: Cough, dyspnea Narrative: 58 year old male resident of the [facility], with a prior history of multiple hospitalizations, being admitted on 01/08 from [facility] Emergency Department with a diagnosis of Pneumonia. Mr. Corley has been hospitalized here at [facility] with sepsis on numerous prior occasions. He has a history of Group C strep and MRSA bacteremia, as well as E. Fecalis UTI with Urosepsis in the past. He suffered a cardiopulmonary arrest previously, necess[place] [facility] [place] he was treated for Choleycystitis, and as he was deemed not a surgical candidate was treated conservatively with a pigtail catheter that remains in place. His other medical history includes DM, Adrenal insufficiency secondary to chronic steroid use, RA, Crohn's disease s/p Colectomy, OA, CKD with prior JESUS and resultant hyperkalemia, HTN, CAD, hypothyroidism, Obesity, and chronic pain. He's had recurrent UTIs, and also has a history of a non-healing diabetic foot ulcer for which he has undergone debridement in the past with excision of the right toe without evidence of Osteo, chronically followed as an outpatient by Podiatry. He also suffers from frequent hyperkalemia, and was diagnosed with Atrial Flutter during a previous hospitalization, for which he is on chronic anticoagulation. The patient has also been treated for MRSA bacteremia on multiple prior occasions, including January of 2018, February, April, and June of 2018. He was ultimately found to have evidence of a right elbow septic arthritis, transferred to [facility], and underwent hardware removal in his elbow in June followed by a washout of the wound. He has undergone a subsequent 6 week total course of antibiotics. The patient presented to the ED after feeling unwell this morning at [facility]. He complained of a cough and subjective fever, and reported a roommate at the [facility] who recently had a respiratory illness. Upon initial evaluation was noted to have temperature as high as 39.8, tachycardia, and mild hypoxia, with labwork significant for a mild leukocytosis. His renal function was at baseline, and lactate was checked and normal. His urinalysis was positive for Pyuria, and Xray showed bilateral perihilar infiltrates suspicious for pneumonia, with small b/l pleural effusions. He was referred for admission for further evaluation and treatment. 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 He would like to remain a full code. (5) Pulmonary hypertension: Status: Chronic (6) Poorly controlled type 2 diabetes mellitus with circulatory disorder: Status: Chronic Review of Systems Narrative: He is presently feeling much much better. The plan is for him to return to the [facility]. He still is having some shortness of breath, but his breathing near his baseline. He no longer feels washed out. Constitutional Constitutional: Reports body ache(s), Reports chills, Reports difficulty sleeping and Reports weakness Eyes Eyes: Reports system reviewed and no additional complaints, except as docu ENT Ears, Nose, Mouth, and Throat: Reports neck pain Comments: Poor dentition Cardiovascular Cardiovascular: Reports pedal edema and Reports dyspnea Respiratory Respiratory: Reports cough and Reports dyspnea Gastrointestinal Gastrointestinal: Reports system reviewed and no additional complaints, except as docu Genitourinary Comments: Urinary difficulties Musculoskeletal Musculoskeletal: Reports back pain, Reports myalgias, Reports atrophy, Reports deformity, Reports arthralgias, Reports joint swelling, Reports limited range of motion, Reports loss of height, Reports muscle cramps, Reports muscle weakness, Reports neck pain, Reports numbness, Reports radiating pain into limb, Reports stiffness and Reports tingling Neurologic Neurologic: Reports numbness, Reports tingling and Reports weakness Psychiatric Psychiatric: Reports abnormal sleep pattern, Reports anxiety and Reports depression [facility] Medical History (Updated 01/11/19 @ 15:54 by Priscila Canela MD) Acromegaly (Chronic) Acute on chronic kidney failure (Resolved) Adrenal insufficiency (Chronic) Ambulatory dysfunction (Chronic) Anemia (Chronic) Atrial flutter, paroxysmal (Chronic) Back pain (Chronic 06/21/13) CAD (coronary artery disease) (Chronic) Cardiopulmonary arrest with successful resuscitation (Resolved) Cholelithiasis (Chronic) Chronic anxiety (Chronic) Chronic bipolar disorder (Chronic) a. With history of psychosis. Chronic cholecystitis (Chronic) Chronic insomnia (Chronic) Chronic pain (Chronic) On both Methadone and Fentanyl as well as Ultram and Naproxen. CKD (chronic kidney disease) (Chronic) Complicated UTI (urinary tract infection) (Resolved) Diabetes mellitus (Chronic) Diabetic foot ulcer (Chronic) Diabetic ulcer of toe associated with diabetes mellitus due to underlying condition, with bone involvement without evidence of necrosis (Inactive) 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 (Resolved) Dyslipidemia (Chronic) Elevated troponin I level (Resolved) Endocarditis due to Staphylococcus (Resolved) Heme positive stool (Resolved) Hemorrhagic cystitis (Chronic) Hyperkalemia (Resolved) Hypertension (Chronic) Hypomagnesemia (Chronic) Hypothyroidism (Chronic) Impaired mobility and ADLs (Chronic) Inability to get out of bed (Chronic 06/21/13) Lactic acidosis (Resolved) MRSA bacteremia (Resolved) Obesity (Chronic) a. Obesity though he has had significant weight loss since last seen. Osteoarthritis of both knees (Chronic) Severe. a. [id number] bilateral knees. 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 2 diabetes mellitus (Resolved) Palliative care encounter (Chronic) DObbertin Pedal edema (Chronic) Poor self care (Chronic 06/21/13) Poorly controlled type 2 diabetes mellitus with circulatory disorder (Chronic) Pulmonary hypertension (Chronic) Rheumatoid arthritis (Chronic) Sepsis (Resolved) Septic arthritis of elbow, right (Inactive) Toxic metabolic encephalopathy (Resolved) Toxic metabolic encephalopathy (Resolved) Ulcerative colitis (Chronic) UTI (urinary tract infection) (Resolved) UTI (urinary tract infection) due to Enterococcus (Resolved) Surgical History Arthroplasty of knee (Resolved 03/18/12) irrigation and lavage right Fracture, Open Treatment (Resolved) [place] [place] RIGHT DISTAL HUMERUS FRACTURE History of insertion of T-tube into biliary tract (Chronic) S/P colectomy (Chronic) Social History Smoking/Tobacco Use Status: Former Tobacco Use Alcohol Intake: former Drug use: Rarely Substance use type: marijuana Housing: [facility] Do you feel safe at home: Yes Do you feel safe in your relationship?: Yes Exam Narrative Exam Narrative: He is sitting up in the wheelchair expecting to be discharged soon. His hair is neatly combed. States he feels much better. His breathing is significantly better than what was reported to me at the [facility] prior to sending him to the ER His heart is regular today He continues to have multiple orthopedic difficulties including use of his hands legs etc. He is in good spirits Results Last Vital Signs Temp 97.9 F 01/13/19 08:00 Pulse 63 01/13/19 12:16 Resp 20 01/13/19 08:00 BP 185/83 H 01/13/19 12:16 Pulse Ox 95 01/13/19 08:00 Labs Result diagrams: 01/13/19 06:40 01/13/19 06:40 Labs: Laboratory Results - last 24 hr 01/13/19 01/13/19 01/13/19 06:40 06:40 06:40 WBC 9.18 RBC 4.30 L Hgb 9.5 L Hct 33.1 L MCV 77.0 L MCH 22.1 L MCHC 28.7 L RDW 14.7 H Plt Count 363 MPV 9.8 Immature Gran % See Differential Neutrophils % 78.0 Band Neutrophils % 1.0 Lymphocytes % 11.0 Monocytes % 6.0 Eosinophils % 0.0 Basophils % 0.0 Metamyelocytes % 2.0 Myelocytes % 2.0 Absolute Neutrophils 7.25 H Absolute Lymphocytes 1.01 L Absolute Monocytes 0.55 Absolute Eosinophils 0.00 Absolute Basophils 0.00 Differential Comment Manual differential RBC Morphology See below Polychromasia Present Hypochromasia 2+ Anisocytosis 1+ Microcytosis 2+ Ovalocytes 2+ Sodium 142 Potassium 4.0 Chloride 106 Carbon Dioxide 29.3 Anion Gap 6.7 BUN 42 H Creatinine 1.96 H Estimated GFR/1.73 m2 35.18 Glucose 159 H Calcium 8.8 Magnesium 1.9 Procalcitonin 0.4
--- NOTE | 2019-01-14 13:34 | OTDS_ITS ---
Date of service: 01/14/19 Time of Service: 13:34 Occupational Therapy Notes Occupational Therapy Inpatient Discharge Summary Date: 01/14/19 for 01/13/19 Dates of Service: 01/11/19-01/13/19 Referring Doctor: Priscila Canela MD OT Orders: Non-urgent: Limited Ability Precautions: Fall Risk, Contact PATIENT PROFILE/ADMITTING DIAGNOSIS: Pt is a 58 year old male who is well known to OT and has been admitted multiple times to [facility]. He was admitted to [facility] this time for medical management of pneumonia. 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) Palliative care encounter (Acute) Pulmonary hypertension (Chronic) Toxic metabolic encephalopathy (Resolved) Advance directive on file (Chronic) Chronic cholecystitis (Chronic) 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 2 diabetes mellitus (Ruled-out) HCAP (healthcare-associated pneumonia) (Resolved) MRSA bacteremia (Acute) Ambulatory dysfunction (Chronic) Diabetic foot ulcer (Chronic) Poorly controlled type 2 diabetes mellitus with circulatory disorder (Chronic) Adrenal insufficiency (Chronic) CKD (chronic kidney disease) (Chronic) Cardiopulmonary arrest with successful resuscitation (Resolved) Heme positive stool (Chronic) Sepsis (Resolved) Pedal edema (Chronic) Chronic insomnia (Chronic) Hypertension (Chronic) Chronic pain (Chronic) Hypothyroidism (Chronic) Obesity (Chronic) Back pain (Chronic 06/21/13) Inability to get out of bed (Chronic 06/21/13) Poor self care (Chronic 06/21/13) Chronic bipolar disorder (Chronic) CAD (coronary artery disease) (Chronic) Dyslipidemia (Chronic) Rheumatoid arthritis (Chronic) Osteoarthritis of both knees (Chronic) Cholelithiasis (Chronic) Impaired mobility and ADLs (Chronic) Hemorrhagic cystitis (Inactive) Anemia (Chronic) Chronic anxiety (Chronic) Ulcerative colitis (Chronic) Surgical History History of insertion of T-tube into biliary tract (Chronic) S/P colectomy (Chronic) Arthroplasty of knee (Resolved 03/18/12) Fracture, Open Treatment (Resolved) Social History/Home Situation: Pt resides at [facility]. Pt is well known to OT. He had surgery on his (R) UE to remove a metal plate in his (R) elbow earlier this year. He notes that he has not had PT/OT since last admission and is lacking ROM in his (R) UE and has extreme weakness limiting his (I) in ADLs/IADLs. Equipment owned/DME: [facility] which he uses for ambulation, he is a resident of SNF so all other DME are met through the facility. SUBJECTIVE: NT OBJECTIVE: *This document serves as a summary of care, no skilled OT services provided for this documentation. ROM: RUE Shoulder flexion he was unable to perform, Passively to about 60*, elbow flexion to 100, decreased hand/digit ROM L UE Shoulder flexion ~50*, elbow flexion WFL with hard end feel for PROM STRENGTH: RUE Unable to test shoulder flexion or elbow throughout, ladle patcher is weak and symmetrical LUE modified testing shoulder/elbow pt is 2+/5 throughout ladle patcher is weak and symmetrical BALANCE: Static sitting Normal Dynamic Sitting Normal Static Standing Good Dynamic Standing Fair-Good Supine-sit: (I) Sit-supine: (I) BATHING: Sitting on side of bed with max (A) set up Upper Body: (I) (B) hands, (I) (L) UE and (I) face Lower Body: (I) upper thighs, max (A) below (B) knees. GROOMING: Sitting on side of bed (I) with brushing hair TOILETING: Device: Urinal Assist: (I) ASSESSMENT: Patient is a 58-year-old male referred to occupational therapy services for medical management of penumonia. Patient presents with clinical signs and symptoms consistent with this dx and deconditioning. Pt was seen for 3 skilled OT sessions demonstrating increased (I) in her ADL routines and was able to meet all of his goals established at initial evaluation. Pt was discharged to return to the [facility] on 01/13/19. GOALS 1. Transfers CGA, [facility]- Met 2. Dressing: Sitting on side of bed, pt will be able to put (B) UE into the hospital gown mod (A) with min verbal cues.-met 3. Bathing: Sitting on side of bed pt will be able to wash face, (B) UE and abdomen min (A) and upper legs with min verbal cues.- met 4. Pt will be able to lift covers off his food (I) and perform (I) food to mouth translation.-met PLAN OF CARE/TREATMENT PLAN: Discharge from skilled OT services, pt was discharged on 01/13/19 for return to [facility]. DISCHARGE RECOMMENDATIONS Return to [facility] when medically cleared per MD. TREATMENT TIME/MINUTES/CODES N/A Suzanne Javier OTR/L [facility]
--- NOTE | 2019-01-14 16:47 | INDS_ITS ---
Date of service: 01/14/19 Time of Service: 16:47 PT Notes Inpatient Physical Therapy Discharge Summary Dates: 01/14/2019 Dates of Service: 01/09/2019 through 01/12/2019 This is a clinical summary of care provided on the duration of dates listed above. No charge was made in the completion of this documentation. Referring Doctor: Dr. Canela PT Orders: PT CONSULT: limited ability to ambulate Precautions: contact, standard Patient Profile/Admitting Diagnosis: Patient admitted from the [facility] for medical management of pneumonia. PMHX: Acromegaly (Chronic) Acute on chronic kidney failure (Resolved) Adrenal insufficiency (Chronic) Ambulatory dysfunction (Chronic) Anemia (Chronic) Atrial flutter, paroxysmal (Chronic) Back pain (Chronic 06/21/13) CAD (coronary artery disease) (Chronic) Cardiopulmonary arrest with successful resuscitation (Resolved) Cholelithiasis (Chronic) Chronic anxiety (Chronic) Chronic bipolar disorder (Chronic) a. With history of psychosis. Chronic cholecystitis (Chronic) Chronic insomnia (Chronic) Chronic pain (Chronic) On both Methadone and Fentanyl as well as Ultram and Naproxen. CKD (chronic kidney disease) (Chronic) Complicated UTI (urinary tract infection) (Resolved) Diabetes mellitus (Chronic) Diabetic foot ulcer (Acute) Diabetic ulcer of toe associated with diabetes mellitus due to underlying condition, with bone involvement without evidence of necrosis (Inactive) 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 (Resolved) Dyslipidemia (Chronic) Elevated troponin I level (Resolved) Endocarditis due to Staphylococcus (Resolved) Heme positive stool (Resolved) Hemorrhagic cystitis (Chronic) Hyperkalemia (Resolved) Hypertension (Chronic) Hypomagnesemia (Chronic) Hypothyroidism (Chronic) Impaired mobility and ADLs (Chronic) Inability to get out of bed (Chronic 06/21/13) Lactic acidosis (Resolved) MRSA bacteremia (Resolved) Obesity (Chronic) a. Obesity though he has had significant weight loss since last seen. Osteoarthritis of both knees (Chronic) Severe. a. [id number] bilateral knees. 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 2 diabetes mellitus (Resolved) Palliative care encounter (Chronic) DObbertin Pedal edema (Chronic) Poor self care (Chronic 06/21/13) Poorly controlled type 2 diabetes mellitus with circulatory disorder (Chronic) Pulmonary hypertension (Chronic) Rheumatoid arthritis (Chronic) Sepsis (Resolved) Septic arthritis of elbow, right (Inactive) Toxic metabolic encephalopathy (Resolved) Toxic metabolic encephalopathy (Resolved) Ulcerative colitis (Chronic) Social History/Home Situation: Long-term resident of the [facility]. Patient has had multiple acute care admissions in the past several years. Ambulates short distances with [facility], although reports that he has been shut off at the [facility] and has not walked in several weeks. Equipment Owned/DME: [facility] resident Subjective: NT Objective: General Observation: NT Mental Status: NT Pain: NT ROM: Right Upper Extremity: Shoulder flexion allows 65 degrees. Elbow motion allows -30 extension to 90 degrees flexion. He has partial opening and partial closing of the hand. Left Upper Extremity: Shoulder flexion allows 65 degrees. Elbow motion full. He has partial opening and partial closing of the hand. Right Lower Extremity: Right knee allows -20 degrees extension, 90 degrees flexion. Ankle dorsiflexion allows 0 degrees. Left Lower Extremity: Left knee allows -10 degrees extension, 90 degrees flexion. Ankle dorsiflexion to 0 degrees Strength: Right Upper Extremity: Shoulder motions grossly 3-/5. Left Upper Extremity: Shoulder motions grossly 3-/5. Right Lower Extremity: Hip flexion 4+/5. Quads 4+/5. Ankle dorsiflexion 3-/5. Left Lower Extremity: Hip flexion 4+/5. Quads 4+/5. Ankle dorsiflexion 3-/5. Bed Mobility/Transfers: Supine?sit: Independent Sit?supine: Independent Scooting up in bed: Independent Sit to stand supervision Stand to sit supervision Bed to chair SBA Chair to bed SBA Gait: As of 01/12/2019 patient is able to tolerate 12 feet of short distance ambulation requiring front wheeled walker with full weight bearing needing standby assist of 2 people for overall safety. Balance: Static Sitting: Normal Dynamic Sitting: Good Static Standing: Refuses Dynamic Standing: Refuses Assessment: Patient is a 58 year old male referred to physical therapy services with the diagnosis of limited ability to ambulate. Patient presents with clinical signs and symptoms consistent with acute on chronic mobility deficits. He has been admitted for management of pneumonia, and per his report has had a significant decline in his mobility over the past few weeks. He requires skilled PT intervention to maximize safety and mobility to allow for transition back to long-term care facility once medically stable. He continues to demonstrate the following impairment level findings: 1. Severe, global weakness and loss of range of motion 2. Contractures of the right elbow, bilateral knees 3. Decreased activity tolerance Impairments continue to contribute to the following functional limitations: 1. Unable to ambulate 2. Decreased activity tolerance 3. Decreased independence with transfers Goals: Goals X1 week 1. Supine-Sit : Supervision MET 2. Sit-Supine : Supervision MET 3. Sit-Stand : Supervision MET 4. Stand-Sit : Supervision MET 5. Bed-Chair: min A with [facility] MET 6. Chair-Bed : min A with [facility] MET DISCHARGE RECOMMENDATIONS: Return to the [facility] when medically cleared. TREATMENT CODE/TIME: NC. Thank you very much for this referral. Nona Pena PT, DPT, CLT [facility]
== END 2019-01-13 12:32 | disposition skilled nursing facility (03) | DRG 194 ==
LOC: ER 10:05 → MS 11:37
PROVIDERS: Admitting Provider Internal Medicine; Emergency Provider Emergency Medicine; PCP Family Medicine; Visit Provider Internal Medicine
DX: J18.9 Pneumonia, unspecified organism (principal); E27.49 Other adrenocortical insufficiency; N39.0 Urinary tract infection, site not specified; Z16.11 Resistance to penicillins; Z16.23 Resistance to quinolones and fluoroquinolones; Z16.29 Resistance to other single specified antibiotic; Z16.19 Resistance to other specified beta lactam antibiotics; K50.90 Crohn's disease, unspecified, without complications; B96.4 Proteus (mirabilis) (morganii) as the cause of diseases classified elsewhere; E87.5 Hyperkalemia; Y95 Nosocomial condition; E11.621 Type 2 diabetes mellitus with foot ulcer; L97.521 Non-pressure chronic ulcer of other part of left foot limited to breakdown of skin; E11.65 Type 2 diabetes mellitus with hyperglycemia; Z79.4 Long term (current) use of insulin; E11.42 Type 2 diabetes mellitus with diabetic polyneuropathy; I87.8 Other specified disorders of veins; E11.22 Type 2 diabetes mellitus with diabetic chronic kidney disease; N18.9 Chronic kidney disease, unspecified; I12.9 Hypertensive chronic kidney disease with stage 1 through stage 4 chronic kidney disease, or unspecified chronic kidney disease; E87.70 Fluid overload, unspecified; Z87.440 Personal history of urinary (tract) infections; E03.9 Hypothyroidism, unspecified; Z79.01 Long term (current) use of anticoagulants; G89.29 Other chronic pain; Z79.891 Long term (current) use of opiate analgesic; Z87.01 Personal history of pneumonia (recurrent); Z86.14 Personal history of Methicillin resistant Staphylococcus aureus infection; M06.9 Rheumatoid arthritis, unspecified; Z79.52 Long term (current) use of systemic steroids; Z89.411 Acquired absence of right great toe; F31.9 Bipolar disorder, unspecified; R26.2 Difficulty in walking, not elsewhere classified; Z93.3 Colostomy status
CPT/HCPCS: 36415; 80048; 80053; 82947; 84145; 87040; 87077; 87081; 87449; 93005; 94640; 96361; 96365; 97110; 97162; 97166; 97530; 97535; 99222; 99232; 99239; 99252; 99285; 71045; 81003; 81015; 83605; 83735; 84484; 85025; 86140; 87070; 87086; 87186; 87205; 93010; 99284; J1720; J1941; J2543; J2930; J3370; J3490; J7512; J7620

== ENCOUNTER 2019-01-18 12:50 | Outpatient (REF) | payer MEDICARE, MEDICAID, SELFPAY ==
[2019-01-18 14:29] LABS: Hemoglobin A1C 8.4 % (4.5-6.2)
[2019-01-18 14:42] LABS: ALT 15 U/L (16-63); AST 10 U/L (15-37); Albumin 2.9 g/dL (3.4-5.0); Alkaline Phosphatase 140 U/L (46-116); Anion Gap 8.8 mmol/L (3-11); BUN 27 mg/dL (7-18); Bilirubin, Total 0.5 mg/dL (0.2-1.0); CO2 30.2 mmol/L (21.0-32.0); CREATININE 1.69 mg/dL (0.70-1.30); Calcium 8.4 mg/dL (8.5-10.1); Chloride 109 mmol/L (98-107); Estimated GFR 41.74 (mL/min/1.73m2); Glucose 110 mg/dL (74-106); Potassium 4.2 mmol/L (3.5-5.1); Sodium 148 mmol/L (136-145); Total Protein 6.3 g/dL (6.4-8.2)
== END 2019-01-18 13:10 ==
LOC: LBN 12:50
PROVIDERS: PCP Family Medicine; Visit Provider Nurse Practitioner Gerontology
DX: E11.9 Type 2 diabetes mellitus without complications (principal); N18.9 Chronic kidney disease, unspecified
CPT/HCPCS: 80053; 83036; 83735

== ENCOUNTER 2019-01-25 10:06 | Outpatient (REF) | payer MEDICARE, MEDICAID, SELFPAY ==
[2019-01-25 10:58] LABS: Anion Gap 5.3 mmol/L (3-11); BUN 34 mg/dL (7-18); CO2 29.7 mmol/L (21.0-32.0); CREATININE 2.12 mg/dL (0.70-1.30); Calcium 8.4 mg/dL (8.5-10.1); Chloride 109 mmol/L (98-107); Estimated GFR 32.13 (mL/min/1.73m2); Glucose 341 mg/dL (74-106); Sodium 144 mmol/L (136-145)
== END 2019-01-25 10:26 ==
LOC: LBN 10:06
PROVIDERS: PCP Family Medicine; Visit Provider Nurse Practitioner Gerontology
DX: I10 Essential (primary) hypertension (principal)
CPT/HCPCS: 80048

== ENCOUNTER 2019-02-03 16:19 | Outpatient (REF) | payer MEDICARE, MEDICAID, SELFPAY ==
[2019-02-03 16:03] LABS: Abs Immature Grans 0.05 k/cumm (0.0-0.09); Absolute Basophil Count 0.01 k/cumm (0.0-0.2); Absolute Eosinophil Count 0.16 k/cumm (0.0-0.7); Absolute Lymphocyte Count 0.65 k/cumm (1.2-3.4); Absolute Monocyte Count 0.32 k/cumm (0.11-0.7); Absolute Neutrophil Count 6.64 k/cumm (1.2-6.7); Basophils % 0.1; HCT 32.7 % (40.0-50.0); HGB 9.2 g/dL (13.5-17.5); Immature Grans % 0.6; Lymphocytes % 8.3; Mean Corp. HGB Concentration 28.1 g/dL (32.0-36.0); Mean Corpuscular Hemoglobin 22.2 pg (27.0-33.0); Mean Corpuscular Volume 78.8 fL (80-95); Mean Platelet Volume 10.1 fL (8.0-11.0); Monocytes % 4.1; Neutrophils % 84.9; Platelet Count 304 x1000/uL (130-400); RBC 4.15 m/cumm (4.50-6.00); RBC Distribution Width 16.2 % (11.8-14.1); White Blood Cell Count 7.83 k/cumm (4.4-10.8)
[2019-02-03 16:27] LABS: Albumin 2.5 g/dL (3.4-5.0); Alkaline Phosphatase 135 U/L (46-116); BUN 41 mg/dL (7-18); Bilirubin, Total 0.2 mg/dL (0.2-1.0); CO2 26.4 mmol/L (21.0-32.0); CREATININE 2.13 mg/dL (0.70-1.30); Calcium 8.9 mg/dL (8.5-10.1); Chloride 107 mmol/L (98-107); Estimated GFR 31.96 (mL/min/1.73m2); Glucose 326 mg/dL (74-106); Potassium 4.7 mmol/L (3.5-5.1); Sodium 142 mmol/L (136-145); Total Protein 6.3 g/dL (6.4-8.2)
[2019-02-03 16:28] LABS: ALT 7 U/L (16-63); AST 9 U/L (15-37); Anion Gap 8.6 mmol/L (3-11)
[2019-02-03 17:16] LABS: Anisocytosis 1+; Hypochromasia 2+; Microcytosis 1+; Ovalocytes 2+; Polychromasia Present
== END 2019-02-03 16:39 ==
LOC: LBN 16:19
PROVIDERS: PCP Family Medicine; Visit Provider Nurse Practitioner Gerontology
DX: R50.9 Fever, unspecified (principal); R68.89 Other general symptoms and signs; E11.9 Type 2 diabetes mellitus without complications
CPT/HCPCS: 80053; 85025

== ENCOUNTER 2019-02-04 10:48 | Outpatient (REF) | payer MEDICARE, MEDICAID, SELFPAY ==
[2019-02-04 12:31] LABS: Bilirubin Negative (Negative); Blood Small (Negative); Clarity Sl Cloudy (Clear); Glucose Negative (Negative); Ketones Negative (Negative); Leukocyte Esterase Large (Negative); Nitrite Negative (Negative); Urobilinogen 0.2 EU/dL (Up TO 0.2)
[2019-02-04 12:41] LABS: Bacteria Moderate HPF (Negative); Casts Negative LPF (Negative); Crystals Negative HPF (Negative); Epithelial Cells Negative HPF (Negative); Mucus Negative (Negative); WBC >50 HPF (0-5)
[2019-02-04 12:42] LABS: C & S Indicated? C&S Done As Ordered
== END 2019-02-04 11:08 ==
LOC: LBN 10:48
PROVIDERS: PCP Family Medicine; Visit Provider Nurse Practitioner Gerontology
DX: R50.9 Fever, unspecified (principal); N18.9 Chronic kidney disease, unspecified; Z86.19 Personal history of other infectious and parasitic diseases
CPT/HCPCS: 81003; 81015; 87086

== ENCOUNTER 2019-02-23 11:42 | Inpatient (IN) | payer MEDICARE, MEDICAID, SELFPAY ==
[2019-02-23] VITALS (46 sets, daily range): BP systolic 99–141; BP diastolic 49–74; PULSE 62–91; RESP 1–24; TEMP 37.2–38.3; O2SAT 90–99
[2019-02-23] MEDS: Albuterol/Ipratropium 3 ML UPD VIAL (11:45)
--- NOTE | 2019-02-23 11:50 | ED.GENADUL_ITS ---
Discharge Plan Disposition Patient Disposition: [facility] INPATIENT Condition: Fair Discharge Details Chief Complaint: SOB Clinical Impression: Acute on chronic clinical systolic heart failure, Hypercarbia, UTI (urinary tract infection) Admit Date/Time: 02/23/19 15:31 Admit Provider: Scar Gan Attending Provider: Scar Gan Primary Care Provider: Lou Maldonado ED Provider: Reny Trejo Discharge Data Discharge Date/Time-TO BE ENTERED AT DEPARTURE: 02/23/19 15:52 Medical Decision Making 1230 -- 58-year-old male from the [facility] with a history of anxiety, bipolar, coronary artery disease, Crohn's, diabetes, hypertension, hyperlipidemia who presents for fever and shortness of breath with drowsiness noted at the [facility]. Vitals within normal limits. Afebrile. Patient drowsy on arrival. Initially on 4 L nasal cannula 94%. Diminished breath sounds throughout. ABG noted pH of 7.33, PCO2 63, PO2 58 and bicarb 33. He appeared to become more somnolent with apnea and was placed on BiPAP. Repeat ABG improvement with pH 7.36, PCO2 59, O2 107, bicarb 33. Patient more awake and alert. Differential diagnosis includes influenza, pneumonia, bronchitis, electrolyte abnormality, arrhythmia. EKG notes a rate of 84, sinus, PVCs with no acute ST ischemic changes. Labs and imaging reviewed. White blood cell count elevated at 14. Hemoglobin stable at 9.9, creatinine stable at 2.28. Troponin negative. Chest x-ray notes increase in pulmonary vascular compared to previous EKG consistent with mild CHF. Dose of Lasix ordered. Patient is chronically on prednisone due to adrenal insufficiency. Will add antibiotics for elevated white count as it was recently normal with complaint of fever. Urinalysis notes UTI. Nursing staff here placed a Downing catheter. He did not come into the ED with a Downing catheter. Breath sounds improved with Lasix and nebs. 1455 --discussed with hospitalist -accepts patient for admission. Agrees with plan for antibiotics. Will add lactated Ringer's at 80 cc/h. Medical Records Medical records reviewed: Yes I reviewed the patient's medical records. Imaging Data Radiologic Study: Radiologist's impression: XR PORTABLE CHEST AP CLINICAL HISTORY: sob, fever, r/o pneumonia TECHNIQUE: COMPARISON: XR PORTABLE CHEST AP from 01/11/2019 FINDINGS: AP portable chest was obtained. There is mild cardiomegaly. There is prominence of pulmonary interstitial markings, in comparison with previous examination of January 11 the findings are more prominent on the current examination suggesting interval development of mild CHF. No other significant findings. Lab Data Lab results reviewed: Yes I reviewed the patient's lab results. Labs: 02/23/19 12:25 Urine - Reflex from Ua Urine Culture - Pending 02/23/19 12:07 Nasopharynx Influenza Types A,B Antigen - Final 02/23/19 12:07 Nose MRSA Screen - Pending 02/23/19 11:55 Blood Blood Culture - Pending 02/23/19 11:55 Blood Blood Culture - Pending Laboratory Tests Range/Units 02/23/19 02/23/19 02/23/19 04:50 11:55 11:55 WBC (4.4-10.8) k/cumm 14.87 H RBC (4.50-6.00) m/cumm 4.40 L Hgb (13.5-17.5) g/dL 9.9 L Hct (40.0-50.0) % 35.0 L MCV (80-95) fL 79.5 L MCH (27.0-33.0) pg 22.5 L MCHC (32.0-36.0) g/dL 28.3 L RDW (11.8-14.1) % 15.8 H Plt Count (130-400) x1000/uL 407 H MPV (8.0-11.0) fL 9.5 Immature Gran % 0.5 Neutrophils % 91.4 Lymphocytes % 2.8 Monocytes % 4.0 Eosinophils % 1.1 Basophils % 0.2 Absolute Neutrophils (1.2-6.7) k/cumm 13.59 H Absolute Lymphocytes (1.2-3.4) k/cumm 0.42 L Absolute Monocytes (0.11-0.7) k/cumm 0.59 Absolute Eosinophils (0.0-0.7) k/cumm 0.16 Absolute Basophils (0.0-0.2) k/cumm 0.03 Sample Site pCO2 (34-47) mmHg pO2 (83-108) mmHg O2 Saturation (94-98) % ABG pH (7.35-7.45) ABG HCO3 (22-28) mmol/L ABG Total CO2 (22-29) mmol/L ABG Base Excess (-3-3) mmol/L FiO2 % Sodium (136-145) mmol/L 146 H Potassium (3.5-5.1) mmol/L 3.6 Chloride (98-107) mmol/L 107 Carbon Dioxide (21.0-32.0) mmol/L 33.0 H Anion Gap (3-11) mmol/L 6.0 BUN (7-18) mg/dL 35 H Creatinine (0.70-1.30) mg/dL 2.28 H Estimated GFR/1.73 m2 (mL/min/1.73m2) 29.55 Glucose (74-106) mg/dL 127 H Lactate (0.6-1.4) mmol/L Calcium (8.5-10.1) mg/dL 8.7 Magnesium (1.8-2.4) mg/dL 1.8 Total Bilirubin (0.2-1.0) mg/dL 0.3 AST (15-37) U/L 6 L ALT (16-63) U/L 13 L Alkaline Phosphatase (46-116) U/L 131 H Troponin I (<0.06) ng/Ml 0.06 < 0.05 NT-Pro-B Natriuret Pep (<300) pg/mL Total Protein (6.4-8.2) g/dL 7.0 Albumin (3.4-5.0) g/dL 2.5 L Urine Color (Yellow) Urine Clarity (Clear) Urine pH (5-8) Ur Specific [place] (1.005-1.025) Urine Protein (Negative) mg/dL Urine Ketones (Negative) mg/dL Urine Blood (Negative) Urine Nitrite (Negative) Urine Bilirubin (Negative) Urine Urobilinogen (Up TO 0.2) EU/dL Ur Leukocyte Esterase (Negative) Urine RBC Urine WBC (0-5) HPF Ur Epithelial Cells Urine Crystals Urine Bacteria Urine Mucus Ur Culture Indicated? Urine Glucose (Negative) mg/dL Range/Units 02/23/19 02/23/19 02/23/19 11:55 11:55 11:59 WBC (4.4-10.8) k/cumm RBC (4.50-6.00) m/cumm Hgb (13.5-17.5) g/dL Hct (40.0-50.0) % MCV (80-95) fL MCH (27.0-33.0) pg MCHC (32.0-36.0) g/dL RDW (11.8-14.1) % Plt Count (130-400) x1000/uL MPV (8.0-11.0) fL Immature Gran % Neutrophils % Lymphocytes % Monocytes % Eosinophils % Basophils % Absolute Neutrophils (1.2-6.7) k/cumm Absolute Lymphocytes (1.2-3.4) k/cumm Absolute Monocytes (0.11-0.7) k/cumm Absolute Eosinophils (0.0-0.7) k/cumm Absolute Basophils (0.0-0.2) k/cumm Sample Site Right radial pCO2 (34-47) mmHg 63 H* pO2 (83-108) mmHg 58 L O2 Saturation (94-98) % 91 L ABG pH (7.35-7.45) 7.33 L ABG HCO3 (22-28) mmol/L 33 H ABG Total CO2 (22-29) mmol/L 32 H ABG Base Excess (-3-3) mmol/L 7.2 H FiO2 % 30 Sodium (136-145) mmol/L Potassium (3.5-5.1) mmol/L Chloride (98-107) mmol/L Carbon Dioxide (21.0-32.0) mmol/L Anion Gap (3-11) mmol/L BUN (7-18) mg/dL Creatinine (0.70-1.30) mg/dL Estimated GFR/1.73 m2 (mL/min/1.73m2) Glucose (74-106) mg/dL Lactate (0.6-1.4) mmol/L 0.7 Calcium (8.5-10.1) mg/dL Magnesium (1.8-2.4) mg/dL Total Bilirubin (0.2-1.0) mg/dL AST (15-37) U/L ALT (16-63) U/L Alkaline Phosphatase (46-116) U/L Troponin I (<0.06) ng/Ml NT-Pro-B Natriuret Pep (<300) pg/mL 993 H Total Protein (6.4-8.2) g/dL Albumin (3.4-5.0) g/dL Urine Color (Yellow) Urine Clarity (Clear) Urine pH (5-8) Ur Specific [place] (1.005-1.025) Urine Protein (Negative) mg/dL Urine Ketones (Negative) mg/dL Urine Blood (Negative) Urine Nitrite (Negative) Urine Bilirubin (Negative) Urine Urobilinogen (Up TO 0.2) EU/dL Ur Leukocyte Esterase (Negative) Urine RBC Urine WBC (0-5) HPF Ur Epithelial Cells Urine Crystals Urine Bacteria Urine Mucus Ur Culture Indicated? Urine Glucose (Negative) mg/dL Range/Units 02/23/19 02/23/19 12:25 12:38 WBC (4.4-10.8) k/cumm RBC (4.50-6.00) m/cumm Hgb (13.5-17.5) g/dL Hct (40.0-50.0) % MCV (80-95) fL MCH (27.0-33.0) pg MCHC (32.0-36.0) g/dL RDW (11.8-14.1) % Plt Count (130-400) x1000/uL MPV (8.0-11.0) fL Immature Gran % Neutrophils % Lymphocytes % Monocytes % Eosinophils % Basophils % Absolute Neutrophils (1.2-6.7) k/cumm Absolute Lymphocytes (1.2-3.4) k/cumm Absolute Monocytes (0.11-0.7) k/cumm Absolute Eosinophils (0.0-0.7) k/cumm Absolute Basophils (0.0-0.2) k/cumm Sample Site Right radial pCO2 (34-47) mmHg 59 H pO2 (83-108) mmHg 107 O2 Saturation (94-98) % 99 H ABG pH (7.35-7.45) 7.36 ABG HCO3 (22-28) mmol/L 33 H ABG Total CO2 (22-29) mmol/L 32 H ABG Base Excess (-3-3) mmol/L 7.8 H FiO2 % 40 Sodium (136-145) mmol/L Potassium (3.5-5.1) mmol/L Chloride (98-107) mmol/L Carbon Dioxide (21.0-32.0) mmol/L Anion Gap (3-11) mmol/L BUN (7-18) mg/dL Creatinine (0.70-1.30) mg/dL Estimated GFR/1.73 m2 (mL/min/1.73m2) Glucose (74-106) mg/dL Lactate (0.6-1.4) mmol/L Calcium (8.5-10.1) mg/dL Magnesium (1.8-2.4) mg/dL Total Bilirubin (0.2-1.0) mg/dL AST (15-37) U/L ALT (16-63) U/L Alkaline Phosphatase (46-116) U/L Troponin I (<0.06) ng/Ml NT-Pro-B Natriuret Pep (<300) pg/mL Total Protein (6.4-8.2) g/dL Albumin (3.4-5.0) g/dL Urine Color (Yellow) Yellow Urine Clarity (Clear) Cloudy Urine pH (5-8) 5.5 Ur Specific [place] (1.005-1.025) 1.015 Urine Protein (Negative) mg/dL 30 H Urine Ketones (Negative) mg/dL Negative Urine Blood (Negative) Large H Urine Nitrite (Negative) Negative Urine Bilirubin (Negative) Negative Urine Urobilinogen (Up TO 0.2) EU/dL 0.2 Ur Leukocyte Esterase (Negative) Large H Urine RBC Not Applicable Urine WBC (0-5) HPF >50 H Ur Epithelial Cells Not Applicable Urine Crystals Not Applicable Urine Bacteria Not Applicable Urine Mucus Not Applicable Ur Culture Indicated? Yes Urine Glucose (Negative) mg/dL Negative ECG Data Attestation: I personally reviewed and interpreted this ECG (s) as follows: Interpretation: Rate of 84, sinus, PVCs. No acute ST elevation or depression. MI 168. QTc 440. QRS 110. HPI General Mode of arrival: EMS . Date/Time Provider Initiated Documentation: 02/23/19 11:46 . Limitations to Documentation: altered mental status and physical limitation . Information obtained by: patient and RN/MD . History of Present Illness 58 year old M presents to the emergency department with the chief complaint of Altered mental status, shortness of breath, febrile, described as moderate, Patient started experiencing this day(s) and it has been constant. No relieving factors improve symptom(s), No exacerbating factors reported . Patient notes cough, fever/chills, malaise, shortness of breath and weakness. Patient did receive the following treatments prior to arrival, none Related Data Home Medications Medication Instructions Recorded Confirmed cyanocobalamin (vitamin B-12) 1,000 mcg PO DAILY 12/23/17 02/23/19 ferrous sulfate 325 mg PO BID #0 tab 12/31/17 02/23/19 magnesium chloride [Mag 64] 64 mg PO BID #0 tab 02/10/18 02/23/19 terazosin 4 mg PO BID #0 cap 02/10/18 02/23/19 Centrum Complete 1 tab PO DAILY 03/01/18 02/23/19 ascorbic acid (vitamin C) [Vitamin 1 tab PO BID 03/01/18 02/23/19 C] acidophilus-pectin, citrus 1 cap PO TID #0 tab 03/24/18 02/23/19 trazodone 50 mg PO HS #30 tab 05/06/18 02/23/19 Eliquis 5 mg PO BID #60 tab 06/19/18 02/23/19 Novolog Flexpen U-100 Insulin See Rx Instructions .ROUTE 06/19/18 02/23/19 .COMPLEX #15 ml levothyroxine 25 mcg PO DAILY@0600 #30 tab 06/19/18 02/23/19 melatonin 6 mg PO HS #30 tab 06/19/18 02/23/19 pantoprazole 40 mg PO DAILY #60 tab 06/19/18 02/23/19 sodium bicarbonate 650 mg PO TID #90 tab 06/19/18 02/23/19 Lantus Solostar U-100 Insulin 45 unit SUBCUT BID 07/09/18 02/23/19 calcium carbonate-vitamin D3 1 tab PO BID 07/09/18 02/23/19 [Calcium 500 + D] oxycodone 10 mg PO BID 07/09/18 02/23/19 amlodipine 5 mg PO DAILY #0 tab 07/23/18 02/23/19 clonidine HCl [Catapres] 0.1 mg PO TID #0 tab 07/23/18 02/23/19 furosemide 40 mg PO DAILY #0 tab 07/23/18 02/23/19 venlafaxine [Effexor XR] 112.5 mg PO DAILY 10/23/18 02/23/19 acetaminophen [Tylenol] 1,000 mg PO TID 01/08/19 02/23/19 gabapentin 300 mg PO TID 01/08/19 02/23/19 risperidone [Risperdal] 2 mg PO DAILY 01/08/19 02/23/19 cetirizine [Zyrtec] 10 mg PO DAILY 02/23/19 prednisone 10 mg PO DAILY 02/23/19 02/23/19 Previous Rx's Medication Instructions Recorded ferrous sulfate 325 mg PO BID #0 tab 12/31/17 magnesium chloride [Mag 64] 64 mg PO BID #0 tab 02/10/18 terazosin 4 mg PO BID #0 cap 02/10/18 acidophilus-pectin, citrus 1 cap PO TID #0 tab 03/24/18 trazodone 50 mg PO HS #30 tab 05/06/18 Eliquis 5 mg PO BID #60 tab 06/19/18 Novolog Flexpen U-100 Insulin See Rx Instructions .ROUTE 06/19/18 .COMPLEX #15 ml levothyroxine 25 mcg PO DAILY@0600 #30 tab 06/19/18 melatonin 6 mg PO HS #30 tab 06/19/18 pantoprazole 40 mg PO DAILY #60 tab 06/19/18 sodium bicarbonate 650 mg PO TID #90 tab 06/19/18 amlodipine 5 mg PO DAILY #0 tab 07/23/18 clonidine HCl [Catapres] 0.1 mg PO TID #0 tab 07/23/18 furosemide 40 mg PO DAILY #0 tab 07/23/18 Allergies Allergy/AdvReac Type Severity Reaction Status Date / Time No Known Allergies Allergy Verified 02/23/19 13:19 General YVES: 2 Review of Systems Unobtainable due to mental status [facility] Medical History Acromegaly (Chronic) Acute on chronic kidney failure (Resolved) Adrenal insufficiency (Chronic) Ambulatory dysfunction (Chronic) Anemia (Chronic) Atrial flutter, paroxysmal (Chronic) Back pain (Chronic 06/21/13) CAD (coronary artery disease) (Chronic) Cardiopulmonary arrest with successful resuscitation (Resolved) Cholelithiasis (Chronic) Chronic anxiety (Chronic) Chronic bipolar disorder (Chronic) a. With history of psychosis. Chronic cholecystitis (Chronic) Chronic insomnia (Chronic) Chronic pain (Chronic) On both Methadone and Fentanyl as well as Ultram and Naproxen. CKD (chronic kidney disease) (Chronic) Complicated UTI (urinary tract infection) (Resolved) Diabetes mellitus (Chronic) Diabetic foot ulcer (Chronic) Diabetic ulcer of toe associated with diabetes mellitus due to underlying condition, with bone involvement without evidence of necrosis (Inactive) 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 (Resolved) Dyslipidemia (Chronic) Elevated troponin I level (Resolved) Endocarditis due to Staphylococcus (Resolved) Heme positive stool (Resolved) Hemorrhagic cystitis (Chronic) Hyperkalemia (Resolved) Hypertension (Chronic) Hypomagnesemia (Chronic) Hypothyroidism (Chronic) Impaired mobility and ADLs (Chronic) Inability to get out of bed (Chronic 06/21/13) Lactic acidosis (Resolved) MRSA bacteremia (Resolved) Obesity (Chronic) a. Obesity though he has had significant weight loss since last seen. Osteoarthritis of both knees (Chronic) Severe. a. [id number] bilateral knees. 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 2 diabetes mellitus (Resolved) Palliative care encounter (Chronic) DObbertin Pedal edema (Chronic) Poor self care (Chronic 06/21/13) Poorly controlled type 2 diabetes mellitus with circulatory disorder (Chronic) Pulmonary hypertension (Chronic) Rheumatoid arthritis (Chronic) Sepsis (Resolved) Septic arthritis of elbow, right (Inactive) Toxic metabolic encephalopathy (Resolved) Toxic metabolic encephalopathy (Resolved) Ulcerative colitis (Chronic) UTI (urinary tract infection) (Resolved) UTI (urinary tract infection) due to Enterococcus (Resolved) Surgical History Arthroplasty of knee (Resolved 03/18/12) irrigation and lavage right Fracture, Open Treatment (Resolved) 06/06/[place] [place] ORIF RIGHT DISTAL HUMERUS FRACTURE History of insertion of T-tube into biliary tract (Chronic) S/P colectomy (Chronic) Social History Smoking/Tobacco Use Status: Former Tobacco Use Alcohol Intake: former Drug use: Rarely Substance use type: marijuana Housing: long-term Do you feel safe at home: Yes Do you feel safe in your relationship?: Yes Exam Const General: cooperative and ill appearing chronically Orientation: awake HENMT Head: normal to inspection Ears: hearing grossly normal bilaterally and external ears normal General nose exam: external nose normal Face and sinus: normal facial exam Mouth: mucous membranes dry Eyes General: appearance normal, both eyes and all related structures Eyelids: eyelids normal EOM: EOM intact bilaterally Neck Neck: normal visual inspection Lymphatic: no lymphadenopathy noted Chest Chest: normal inspection of the chest Resp Effort & Inspection: normal respiratory effort Auscultation: diminished lung sounds bilaterally throughout Cardio Rate: regular rate Rhythm: regular rhythm GI Inspection: normal to inspection and obesity Palpation: soft, not firm, no guarding, no hepatosplenomegaly, no masses and nontender Auscultation: normal bowel sounds Skin General skin exam: no rashes or lesions noted Neuro General: alert and awake Cognition: normal cognition Speech: speech normal Gait: normal gait Motor: muscle tone normal throughout Sensory Exam: no sensory deficits noted Extrem Other: Upper or lower extremities appear edematous, 1+ pitting in lower extremities bilaterally. Psych Appearance: grossly normal Mental Status: mental status grossly normal Affect: normal affect Thought Process: normal Course Lab/Test Results Lab/Test Results: 02/23/19 11:47 Blood Blood Culture - Pending 02/23/19 11:47 Blood Blood Culture - Pending
[2019-02-23 12:06] LABS: Lactate 0.7 mmol/L (0.6-1.4)
[2019-02-23 12:09] LABS: Abs Immature Grans 0.08 k/cumm (0.0-0.09); Absolute Basophil Count 0.03 k/cumm (0.0-0.2); Absolute Eosinophil Count 0.16 k/cumm (0.0-0.7); Absolute Lymphocyte Count 0.42 k/cumm (1.2-3.4); Absolute Monocyte Count 0.59 k/cumm (0.11-0.7); Absolute Neutrophil Count 13.59 k/cumm (1.2-6.7); Basophils % 0.2; Eosinophils % 1.1; HGB 9.9 g/dL (13.5-17.5); Immature Grans % 0.5; Lymphocytes % 2.8; Mean Corp. HGB Concentration 28.3 g/dL (32.0-36.0); Mean Corpuscular Hemoglobin 22.5 pg (27.0-33.0); Mean Corpuscular Volume 79.5 fL (80-95); Mean Platelet Volume 9.5 fL (8.0-11.0); Neutrophils % 91.4; Platelet Count 407 x1000/uL (130-400); RBC Distribution Width 15.8 % (11.8-14.1); White Blood Cell Count 14.87 k/cumm (4.4-10.8)
[2019-02-23 12:12] LABS: BE 7.2 mmol/L (-3-3); HCO3 33 mmol/L (22-28); pH 7.33 (7.35-7.45); pO2 58 mmHg (83-108); sO2 91 % (94-98); tCO2 32 mmol/L (22-29)
[2019-02-23 12:15] LABS: pCO2 63 mmHg (34-47)
[2019-02-23 12:16] LABS: FIO2 30 %
[2019-02-23 12:18] LABS: Site Right Radial
--- NOTE | 2019-02-23 12:22 | DI.RAD_ITS ---
EXAM: XR PORTABLE CHEST AP CLINICAL HISTORY: sob, fever, r/o pneumonia TECHNIQUE: COMPARISON: XR PORTABLE CHEST AP from 01/11/2019 FINDINGS: AP portable chest was obtained. There is mild cardiomegaly. There is prominence of pulmonary inters titial markings, in comparison with previous examination of January 11 the findings are more promi nent on the current examination suggesting interval development of mild CHF. No other significant fi ndings. IMPRESSION:
[2019-02-23 12:37] LABS: Bilirubin Negative (Negative); Blood Large (Negative); Clarity Cloudy (Clear); Glucose Negative (Negative); Ketones Negative (Negative); Leukocyte Esterase Large (Negative); Nitrite Negative (Negative); Specific Gravity 1.015 (1.005-1.025); Urobilinogen 0.2 EU/dL (Up TO 0.2); pH 5.5 (5-8)
[2019-02-23 12:37] LABS: ALT 13 U/L (16-63); AST 6 U/L (15-37); Albumin 2.5 g/dL (3.4-5.0); Alkaline Phosphatase 131 U/L (46-116); BUN 35 mg/dL (7-18); Bilirubin, Total 0.3 mg/dL (0.2-1.0); CREATININE 2.28 mg/dL (0.70-1.30); Calcium 8.7 mg/dL (8.5-10.1); Chloride 107 mmol/L (98-107); Estimated GFR 29.55 (mL/min/1.73m2); Glucose 127 mg/dL (74-106); Magnesium 1.8 mg/dL (1.8-2.4); Potassium 3.6 mmol/L (3.5-5.1); Sodium 146 mmol/L (136-145); Troponin I < 0.05 ng/Ml (<0.06)
[2019-02-23 12:45] LABS: C & S Indicated? Yes; WBC >50 HPF (0-5)
[2019-02-23] MEDS: methylPREDNISolone SUCC 125 MG VIAL (12:46)
[2019-02-23 13:07] LABS: BE 7.8 mmol/L (-3-3); HCO3 33 mmol/L (22-28); pCO2 59 mmHg (34-47); pH 7.36 (7.35-7.45); pO2 107 mmHg (83-108); sO2 99 % (94-98); tCO2 32 mmol/L (22-29)
[2019-02-23 13:09] LABS: Site Right Radial
[2019-02-23 13:10] LABS: FIO2 40 %
[2019-02-23 14:08] LABS: NT-proBNP 993 pg/mL (<300)
[2019-02-23] MEDS: Furosemide 40 MG/4 ML VIAL IVP (14:12)
[2019-02-23 15:12] LABS: Troponin I 0.06 ng/Ml (<0.06)
[2019-02-23] MEDS: PIPERACILLIN/TAZO 3.375 GM in Normal Saline 50 ML IVPB ×2 (15:17→21:52)
--- NOTE | 2019-02-23 16:10 | HPE_ITS ---
Date of service: 02/23/19 Time of Service: 16:11 Assessment and Plan Assessment and plan (1) Altered mental status: Status: Acute Assessment and plan: I principally suspect this is due to to infection. Infection could be urinary or pulmonary. He has had some brief episodes of lucidity and has spontaneous movement of all extremities making stroke less likely but not completely ruled out. From a diagnostic standpoint monitor clinically. If he has focal motor findings or progressive obtundation consider CT scan of the head. I think this is likely metabolic and should get better as we treat his infection. (2) Respiratory distress, acute: Status: Acute Assessment and plan: Suspect this is due to his altered mental status with hypoventilation and secondary hypoxemia. Might have pneumonia contributing. Less likely heart failure. Slow IV fluids, monitor fluid balance. BiPAP supp ort. Monitor SaO2. If progressive obtundation occurs repeat ABG to be sure he is not having worsening CO2 retention, if so, intubation may be needed. (3) Fever: Status: Resolved Assessment and plan: Blood and urine cultures have been obtained and he is on empiric Zosyn. If he spikes fevers through this consider adding vancomycin. (4) UTI (urinary tract infection): Status: Acute Assessment and plan: Chronic indwelling Downing with increased risk for recurrent UTIs. Proteus was the organism identified during last hospitalization. Empiric antibiotics with Zosyn pending culture results. (5) Pneumonia: Status: Acute Assessment and plan: Difficult exam and x-ray to interpret. Diagnosis of pneumonia is quite soft. Empiric antibiotics as above. Respiratory support as above. (6) Diabetes mellitus: Status: Chronic Assessment and plan: Historically poorly controlled. Continue outpatient Lantus with moderate intensity sliding scale aspart and monitor blood sugar response. He will be getting stress dose steroids which may worsen his blood sugar control. 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 Continue anticoagulation. (8) Hypothyroidism: Status: Chronic Assessment and plan: Recheck TSH on outpatient dose of L-thyroxine. (9) Hypertension: Status: Chronic Assessment and plan: Follow blood pressure on his outpatient doses of terazosin, furosemide, clonidine. (10) Adrenal insufficiency: Status: Chronic Assessment and plan: Stress dose steroids in the short-term. Likely rapid taper back to baseline prednisone dose if he does well. (11) CKD (chronic kidney disease): Status: Chronic Assessment and plan: Gentle hydration with saline and monitor labs and urine output. Renally adjust dose of medications. Qualifiers: Chronic kidney disease stage: unspecified stage Qualified Code(s): N18.9 - Chronic kidney disease, unspecified (12) Chronic pain: Status: Chronic Assessment and plan: Given his altered mental status I am holding oxycodone in the short-term. Continue gabapentin. (13) Anemia: Status: Chronic Assessment and plan: Chronic anemia, not far from baseline. In the short- term hold iron. History of Present Illness History of Present Illness Chief Complaint: Altered mental status, fever, respiratory distress Narrative: 58-year-old man with a history of chronic indwelling Downing, adrenal insufficiency (iatrogenic from chronic steroids for Crohn's), hypertension, diabetes, bipolar, chronic pain, paroxysmal A. fib on chronic anticoagulation, chronic anemia, chronic kidney disease, rheumatoid arthritis and osteoarthritis who is a resident at the [facility], sent from the [facility] because of altered mental status and fever. Secondhand reports from transport that he had an episode of apnea. On arrival in the emergency room was quite drowsy, not hypotensive, initially no temperature but then did have a temperature to 38.3. He was placed on BiPAP after initial ABG showed CO2 retention with PCO2 of 63, pH 7.33 improving on BiPAP to a pH of 7.36. There was concerned that he might have pneumonia or heart failure based on chest x-ray and he was given Lasix, stress dose methylprednisolone and a loading dose of Zosyn after blood and urine cultures were obtained and urinalysis showed significant pyuria. He is being admitted to the ICU for further management of altered mental status presumed to be due to infectious/metabolic problem(s). The patient is lethargic, arousable with stimulation and briefly can provide short answers. He denies chest pain. States his abdomen is sore after I examined him. He has chronic ulcers of toes on his left foot and presacral ulcer covered with Mepilex. No reported recent changes in any medications. He was hospitalized here in December, Proteus urinary tract infection at that time. He was given stress dose steroids which were weaned down gradually to his baseline 10 mg of prednisone. Additional diagnostic studies in the ER notable for a lactate of 0.7, troponin below level of detection, NT proBNP of 993. Chest x-ray poor quality film with poor inspiration, increased interstitial markings nonspecific. Review of Systems Narrative: Unreliable review of systems given patient's altered mental status. [facility] Medical History Acromegaly (Chronic) Acute on chronic kidney failure (Resolved) Adrenal insufficiency (Chronic) Ambulatory dysfunction (Chronic) Anemia (Chronic) Atrial flutter, paroxysmal (Chronic) Back pain (Chronic 06/21/13) CAD (coronary artery disease) (Chronic) Cardiopulmonary arrest with successful resuscitation (Resolved) Cholelithiasis (Chronic) Chronic anxiety (Chronic) Chronic bipolar disorder (Chronic) a. With history of psychosis. Chronic cholecystitis (Chronic) Chronic insomnia (Chronic) Chronic pain (Chronic) On both Methadone and Fentanyl as well as Ultram and Naproxen. CKD (chronic kidney disease) (Chronic) Complicated UTI (urinary tract infection) (Resolved) Diabetes mellitus (Chronic) Diabetic foot ulcer (Chronic) Diabetic ulcer of toe associated with diabetes mellitus due to underlying condition, with bone involvement without evidence of necrosis (Inactive) 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 (Resolved) Dyslipidemia (Chronic) Elevated troponin I level (Resolved) Endocarditis due to Staphylococcus (Resolved) Heme positive stool (Resolved) Hemorrhagic cystitis (Chronic) Hyperkalemia (Resolved) Hypertension (Chronic) Hypomagnesemia (Chronic) Hypothyroidism (Chronic) Impaired mobility and ADLs (Chronic) Inability to get out of bed (Chronic 06/21/13) Lactic acidosis (Resolved) MRSA bacteremia (Resolved) Obesity (Chronic) a. Obesity though he has had significant weight loss since last seen. Osteoarthritis of both knees (Chronic) Severe. a. [id number] bilateral knees. 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 2 diabetes mellitus (Resolved) Palliative care encounter (Chronic) DObbertin Pedal edema (Chronic) Poor self care (Chronic 06/21/13) Poorly controlled type 2 diabetes mellitus with circulatory disorder (Chronic) Pulmonary hypertension (Chronic) Rheumatoid arthritis (Chronic) Sepsis (Resolved) Septic arthritis of elbow, right (Inactive) Toxic metabolic encephalopathy (Resolved) Toxic metabolic encephalopathy (Resolved) Ulcerative colitis (Chronic) UTI (urinary tract infection) (Resolved) UTI (urinary tract infection) due to Enterococcus (Resolved) Surgical History Arthroplasty of knee (Resolved 03/18/12) irrigation and lavage right Fracture, Open Treatment (Resolved) 06/06/17-[facility] [place] S/P ORIF RIGHT DISTAL HUMERUS FRACTURE History of insertion of T-tube into biliary tract (Chronic) S/P colectomy (Chronic) Social History Smoking/Tobacco Use Status: Former Tobacco Use Alcohol Intake: former Drug use: Rarely Substance use type: marijuana Housing: alf Do you feel safe at home: Yes Do you feel safe in your relationship?: Yes Meds Home Medications and Allergies Home Medications Medication Instructions Recorded Confirmed Type cyanocobalamin (vitamin B-12) 1,000 mcg PO DAILY 12/23/17 02/23/19 History ferrous sulfate 325 mg PO BID #0 tab 12/31/17 02/23/19 Rx magnesium chloride [Mag 64] 64 mg PO BID #0 tab 02/10/18 02/23/19 Rx terazosin 4 mg PO BID #0 cap 02/10/18 02/23/19 Rx Centrum Complete 1 tab PO DAILY 03/01/18 02/23/19 History ascorbic acid (vitamin C) [Vitamin 1 tab PO BID 03/01/18 02/23/19 History C] acidophilus-pectin, citrus 1 cap PO TID #0 tab 03/24/18 02/23/19 Rx trazodone 50 mg PO HS #30 tab 05/06/18 02/23/19 Rx Eliquis 5 mg PO BID #60 tab 06/19/18 02/23/19 Rx Novolog Flexpen U-100 Insulin See Rx Instructions .ROUTE 06/19/18 02/23/19 Rx .COMPLEX #15 ml levothyroxine 25 mcg PO DAILY@0600 #30 tab 06/19/18 02/23/19 Rx melatonin 6 mg PO HS #30 tab 06/19/18 02/23/19 Rx pantoprazole 40 mg PO DAILY #60 tab 06/19/18 02/23/19 Rx sodium bicarbonate 650 mg PO TID #90 tab 06/19/18 02/23/19 Rx Lantus Solostar U-100 Insulin 45 unit SUBCUT BID 07/09/18 02/23/19 History calcium carbonate-vitamin D3 1 tab PO BID 07/09/18 02/23/19 History [Calcium 500 + D] oxycodone 10 mg PO BID 07/09/18 02/23/19 History amlodipine 5 mg PO DAILY #0 tab 07/23/18 02/23/19 Rx clonidine HCl [Catapres] 0.1 mg PO TID #0 tab 07/23/18 02/23/19 Rx furosemide 40 mg PO DAILY #0 tab 07/23/18 02/23/19 Rx venlafaxine [Effexor XR] 112.5 mg PO DAILY 10/23/18 02/23/19 History acetaminophen [Tylenol] 1,000 mg PO TID 01/08/19 02/23/19 History gabapentin 300 mg PO TID 01/08/19 02/23/19 History risperidone [Risperdal] 2 mg PO DAILY 01/08/19 02/23/19 History cetirizine [Zyrtec] 10 mg PO DAILY 02/23/19 History prednisone 10 mg PO DAILY 02/23/19 02/23/19 History Allergies Allergy/AdvReac Type Severity Reaction Status Date / Time No Known Allergies Allergy Verified 02/23/19 13:19 Exam Narrative Exam Narrative: Lethargic, arouses to tactile stimuli and briefly can answer a few questions, then nods off again. Pupils 2 mm and equal, no conjunctival injection. Poor dentition. Neck supple. Cannot see neck veins because of skin folds in his leonard. Lungs diminished breath sounds at the bases with a few scattered fine crackles in the lower lung field symmetrically. Regular heart rhythm with no S3 or S4 heard. I do not hear any heart murmur. Abdomen obese, bowel sounds present but somewhat diminished. He complained of a little tenderness diffusely but on repeat exam I do not elicit any pain complaints or behaviors. No masses felt. He has flexion contractures of both knees, deformities of the MCP and IP joints of both hands. Excoriations over the right knee. Chronic pigmentary changes both legs. Very superficial ulcer on the dorsum of his left second toe and plantar aspect of the left foot. Right great toe surgically absent. Good pulses in both feet. Superficial very small ulcer in the sacral area with a few linear skin abrasions just outside the Mepilex dressing. He has spontaneous movement of both upper extremities, limited movement of the lower extremities few but on request can move both feet. 1+ DTRs at the elbows 0 at the knees. Requires assistance to sit up or to roll. Results ECG sinus rhythm, motion artifact, PVC, nonspecific T wave changes. Chest x-ray poor quality film, possibly increased interstitial markings. Labs Result diagrams: 02/23/19 11:55 02/23/19 11:55 Labs: Laboratory Results - last 24 hr 02/23/19 02/23/19 02/23/19 04:50 11:55 11:55 WBC 14.87 H RBC 4.40 L Hgb 9.9 L Hct 35.0 L MCV 79.5 L MCH 22.5 L MCHC 28.3 L RDW 15.8 H Plt Count 407 H MPV 9.5 Immature Gran % 0.5 Neutrophils % 91.4 Lymphocytes % 2.8 Monocytes % 4.0 Eosinophils % 1.1 Basophils % 0.2 Absolute Neutrophils 13.59 H Absolute Lymphocytes 0.42 L Absolute Monocytes 0.59 Absolute Eosinophils 0.16 Absolute Basophils 0.03 Sample Site pCO2 pO2 O2 Saturation ABG pH ABG HCO3 ABG Total CO2 ABG Base Excess FiO2 Sodium 146 H Potassium 3.6 Chloride 107 Carbon Dioxide 33.0 H Anion Gap 6.0 BUN 35 H Creatinine 2.28 H Estimated GFR/1.73 m2 29.55 Glucose 127 H Lactate Calcium 8.7 Magnesium 1.8 Total Bilirubin 0.3 AST 6 L ALT 13 L Alkaline Phosphatase 131 H Troponin I 0.06 < 0.05 NT-Pro-B Natriuret Pep Total Protein 7.0 Albumin 2.5 L Urine Color Urine Clarity Urine pH Ur Specific Schuyler Urine Protein Urine Ketones Urine Blood Urine Nitrite Urine Bilirubin Urine Urobilinogen Ur Leukocyte Esterase Urine RBC Urine WBC Ur Epithelial Cells Urine Crystals Urine Bacteria Urine Mucus Ur Culture Indicated? Urine Glucose 02/23/19 02/23/19 02/23/19 11:55 11:55 11:59 WBC RBC Hgb Hct MCV MCH MCHC RDW Plt Count MPV Immature Gran % Neutrophils % Lymphocytes % Monocytes % Eosinophils % Basophils % Absolute Neutrophils Absolute Lymphocytes Absolute Monocytes Absolute Eosinophils Absolute Basophils Sample Site Right radial pCO2 63 H* pO2 58 L O2 Saturation 91 L ABG pH 7.33 L ABG HCO3 33 H ABG Total CO2 32 H ABG Base Excess 7.2 H FiO2 30 Sodium Potassium Chloride Carbon Dioxide Anion Gap BUN Creatinine Estimated GFR/1.73 m2 Glucose Lactate 0.7 Calcium Magnesium Total Bilirubin AST ALT Alkaline Phosphatase Troponin I NT-Pro-B Natriuret Pep 993 H Total Protein Albumin Urine Color Urine Clarity Urine pH Ur Specific Schuyler Urine Protein Urine Ketones Urine Blood Urine Nitrite Urine Bilirubin Urine Urobilinogen Ur Leukocyte Esterase Urine RBC Urine WBC Ur Epithelial Cells Urine Crystals Urine Bacteria Urine Mucus Ur Culture Indicated? Urine Glucose 02/23/19 02/23/19 12:25 12:38 WBC RBC Hgb Hct MCV MCH MCHC RDW Plt Count MPV Immature Gran % Neutrophils % Lymphocytes % Monocytes % Eosinophils % Basophils % Absolute Neutrophils Absolute Lymphocytes Absolute Monocytes Absolute Eosinophils Absolute Basophils Sample Site Right radial pCO2 59 H pO2 107 O2 Saturation 99 H ABG pH 7.36 ABG HCO3 33 H ABG Total CO2 32 H ABG Base Excess 7.8 H FiO2 40 Sodium Potassium Chloride Carbon Dioxide Anion Gap BUN Creatinine Estimated GFR/1.73 m2 Glucose Lactate Calcium Magnesium Total Bilirubin AST ALT Alkaline Phosphatase Troponin I NT-Pro-B Natriuret Pep Total Protein Albumin Urine Color Yellow Urine Clarity Cloudy Urine pH 5.5 Ur Specific Schuyler 1.015 Urine Protein 30 H Urine Ketones Negative Urine Blood Large H Urine Nitrite Negative Urine Bilirubin Negative Urine Urobilinogen 0.2 Ur Leukocyte Esterase Large H Urine RBC Not Applicable Urine WBC >50 H Ur Epithelial Cells Not Applicable Urine Crystals Not Applicable Urine Bacteria Not Applicable Urine Mucus Not Applicable Ur Culture Indicated? Yes Urine Glucose Negative Last Vital Signs Temp 38.3 C H 02/23/19 11:57 Pulse 84 02/23/19 15:02 Resp 12 02/23/19 15:10 BP 131/52 L 02/23/19 15:00 Pulse Ox 93 L 02/23/19 15:32
[2019-02-23] MEDS: Normal Saline 1,000 ML 80 ML IV (16:31)
[2019-02-23] MEDS: Hydrocortisone SOD SUC. 100 MG VIAL IVP (17:44)
[2019-02-23] MEDS: Normal Saline Flush 10 ML SYR IVP (17:45)
[2019-02-23] MEDS: Insulin Aspart 300 UNITS/3 ML PEN SC ×2 (17:54→22:10)
[2019-02-23] MEDS: Insulin Glargine 300 UNITS/3 ML PEN 45 UNITS SC (21:31)
[2019-02-24] VITALS (97 sets, daily range): BP systolic 114–159; BP diastolic 60–84; PULSE 47–87; RESP 9–27; TEMP 36.6–36.8; O2SAT 88–100
[2019-02-24] MEDS: PIPERACILLIN/TAZO 3.375 GM in Normal Saline 50 ML IVPB ×4 (03:18→21:27)
[2019-02-24] MEDS: Hydrocortisone SOD SUC. 100 MG VIAL IVP ×3 (03:18→19:35)
[2019-02-24 06:11] LABS: Mean Corp. HGB Concentration 29.4 g/dL (32.0-36.0); Mean Corpuscular Hemoglobin 22.6 pg (27.0-33.0); Mean Corpuscular Volume 76.9 fL (80-95); Mean Platelet Volume 9.7 fL (8.0-11.0); Platelet Count 384 x1000/uL (130-400); RBC 4.42 m/cumm (4.50-6.00); RBC Distribution Width 15.9 % (11.8-14.1); White Blood Cell Count 7.95 k/cumm (4.4-10.8)
[2019-02-24] MEDS: Normal Saline 1,000 ML 80 ML IV (06:16)
[2019-02-24 06:35] LABS: Anion Gap 6.8 mmol/L (3-11); BUN 46 mg/dL (7-18); CO2 32.2 mmol/L (21.0-32.0); CREATININE 2.51 mg/dL (0.70-1.30); Calcium 8.6 mg/dL (8.5-10.1); Chloride 106 mmol/L (98-107); Estimated GFR 26.44 (mL/min/1.73m2); Glucose 337 mg/dL (74-106); Sodium 145 mmol/L (136-145); TSH 0.29 uIU/mL (0.36-3.74)
[2019-02-24 07:36] LABS: FREE T4 0.92 ng/dL (0.76-1.46)
--- NOTE | 2019-02-24 08:11 | INITIAL_ITS ---
Care Management Initial Assess REASON FOR HOSPITALIZATION:: Altered mental status, fever, respiratory distress PAST MEDICAL HISTORY/PAST SURGICAL HISTORY:: CHF, Anemia, Anxiety, Back Pain, Bipolar Disorder, CAD, Cardiopulmonary arrest with successful resuscitation, cholelithiasis, anxiety, insomnia, chronic pain, CKD, Crohn's Disease, DM type 2 with diabetic neuropathy, diabetic foot ulcer, dyslipidemia, heme positive stool, hemorrhagic cystitis, hypertension, hypoandrogenism, hypothyroidism, impaired mobility and ADLs, Obesity, Pedal edema, Osteoarthritis of both knees, poor self care, poorly controlled DM2 with circulatory disorder, RA, TKA, Fracture ORIF R distal humerus fracture. 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 Brendan has a sister, Lian Hardy (P#[phone]) who lives in [facility] [place] and though they have limited contact via phone every couple of weeks-she is his only identified family support. Brendan enjoys reading and watching TV. CURRENT FUNCTIONAL STATUS:: Brendan is having only brief periods of lucidity per documentation. He presents with altered mental status this admission. ADVANCE DIRECTIVES:: [facility] on file Has patient been provided with information about the portal?: No Did the patient sign up for the portal?: No CODE STATUS:: Full Code INSURANCE COVERAGE / FINANCIAL ISSUES:: Medicaid. Medicare CURRENT HOME/COMMUNITY SERVICES/EQUIPMENT:: Brendan is a resident at the [facility]-the facility manages his service and equipment needs. PRIMARY CARE PHYSICIAN:: Anne Horowitz MD POTENTIAL DISCHARGE NEEDS:: Coordinated return to [facility]. PATIENT/FAMILY EDUCATION NEEDS:: Review of discharge planning with the patient, and coordiantion and handoff report to the [facility] for continued care. ANTICIPATED BARRIERS TO DISCHARGE:: None identified at this time. TRANSPORTATION:: [facility] wheelchair van, as [facility] does not currently have transportation available. PLAN:: Brendan will continue to be closely monitored in the ICU and will be discharged back to the [facility] when he medically ready. CM to provide support and coordinate transition back to the [facility] when appropriate.
[2019-02-24] MEDS: Insulin Aspart 300 UNITS/3 ML PEN SC ×3 (09:23→17:01)
[2019-02-24] MEDS: Insulin Glargine 300 UNITS/3 ML PEN 45 UNITS SC (09:23)
[2019-02-24] MEDS: Normal Saline Flush 10 ML SYR IVP ×2 (09:24→19:35)
[2019-02-24] MEDS: Gabapentin 100 MG CAP 300 MG PO ×3 (09:31→19:48)
[2019-02-24] MEDS: Cyanocobalamin 500 MCG TAB 1000 MCG PO (09:31)
[2019-02-24] MEDS: Levothyroxine 25 MCG TAB PO (09:32)
[2019-02-24] MEDS: Terazosin 2 MG CAP 4 MG PO ×2 (09:32→19:40)
[2019-02-24] MEDS: amLODIPine 5 MG TAB PO (09:33)
[2019-02-24] MEDS: Ascorbic Acid 500 MG TAB 250 MG PO ×2 (09:33→19:38)
[2019-02-24] MEDS: Venlafaxine 37.5 MG CAPCR PO (09:34)
[2019-02-24] MEDS: Pantoprazole 40 MG TABCR PO (09:34)
[2019-02-24] MEDS: Furosemide 40 MG TAB PO (09:34)
[2019-02-24] MEDS: cloNIDine 0.1 MG TAB PO ×3 (09:34→19:39)
[2019-02-24] MEDS: Apixaban 5 MG TAB PO ×2 (09:35→19:39)
[2019-02-24] MEDS: Sodium Bicarbonate 650 MG TAB PO ×3 (09:35→19:40)
--- NOTE | 2019-02-24 10:20 | PHARADMIT ---
Addendum entered by Elsa Pettit 02/25/19 11:29: Pharmacy Note Subjective mental status back to baseline (rapid improvement), UTI is likely, respiratory distress improved Objective Final urine culture pending, Scr 2.64, MRSA screen +, BG 256 (steroids), WBC 7.95, afebrile Assessment Zosyn day 3, tapering steroids, bipap dc'd Plan continue pred taper acute on chronic renal insufficiency - cont to monitor Original Note: Admission Pharmacy Clinical Review Altere mental status (Somnolent), Hypoventilation Code Status Full Code Current Weight Wgt-104.3 kg Renally Cleared and Narrow Therapeutic Index Meds CrCl~ 34 mL/min Meds-OK QTc Value / Action Taken QTc-440 na BP Control, Fever BP- 142/70 Tmax-38.1C Electrolytes reviewed Na- 145 K+4.0 Mag-1.8 DVT Prophylaxis Eliquis Opiate Usage / Scheduled Bowel Regimen Ordered No Yes Plt/SCr for Heparin / Enoxaparin Plts-384 SCr-2.51 INR for Warfarin na H/H stable, WBC/Bands H&H- 10.0/34.0 WBC- 7.95 Antibiotic appropriateness Zosyn Cultures and Sensitivities Flu-neg, Blood, Urine-Pending Surgical ABX d/c within 24 hr na DM control / Insulin Dosing BG-337 Aspart Glargine Heart Failure (Check EF%) (ARYA's, B-Block, Diuretics) Norvasc, Lasix IV to PO Switch No Home Meds Reviewed Yes Home Meds Not Ordered Humira, Zyrtec, Iron, FolicAcid, Mag, [place]-3, Melatonin M-vites. Oxycodone, Trazodone, Aidophyllis Comments Troponin-neg
[2019-02-24] MEDS: Magnesium Chloride 64 MG TABCR PO ×2 (11:28→21:27)
--- NOTE | 2019-02-24 16:19 | W.PM.PROGNOT ---
Date of Service Date of service: 02/24/19 Time of Service: 13:19 Assessment and Plan Assessment and plan (1) Altered mental status: Status: Acute Assessment and plan: Mental status seems back to baseline. Rather rapid and dramatic improvement. I think this is explainable as a metabolic encephalopathy although the exact mechanism remains to be determined?may never be clear. I think he likely has a UTI although his preliminary urine culture results are underwhelming. Perhaps adrenal insufficiency plus UTI are the cause? In any event he seems to be doing better. I do not think he has had a stroke and I do not think neuro imaging is necessary at this point. Continue to monitor clinically. (2) Respiratory distress, acute: Status: Acute Assessment and plan: Much better, awake and alert. Maintaining oxygen saturation well without any BiPAP support. I will discontinue the BiPAP. I do not think he has pneumonia or heart failure at this time. (3) UTI (urinary tract infection): Status: Acute Assessment and plan: Preliminary urine culture mixed organisms and low colony count. Improving with Zosyn, no change in antibiotics at this time pending final culture results. (4) Acute on chronic renal insufficiency: Status: Acute Assessment and plan: BUN and creatinine both up slightly. IV fluids increased a little. Continue current med management including diuretic. Monitor labs and urine output. (5) Diabetes mellitus: Status: Chronic Assessment and plan: Blood sugars poorly controlled. This may be due to stress and/or stress dose steroids. I anticipate a rapid wean in his steroids beginning tomorrow. I am increasing Lantus in the short-term. Qualifiers: Diabetes mellitus type: type 2 Diabetes mellitus terminal operator insulin use: with [facility] use Diabetes mellitus complication status: with neurologic complications Diabetes mellitus complication detail: with polyneuropathy Qualified Code(s): E11.42 - Type 2 diabetes mellitus with diabetic polyneuropathy; Z79.4 - terminal operator (current) use of insulin (6) Adrenal insufficiency: Status: Chronic Assessment and plan: Continue on stress dose steroids overnight and then likely switch back to prednisone with a prompt taper to his baseline 10 mg daily. Monitor for worsening mental status as steroid dose decreases. (7) Hypertension: Status: Chronic Assessment and plan: Blood pressure acceptable on his current combination of central and peripheral alpha blockers, diuretic and calcium channel lia. (8) Chronic pain: Status: Chronic Assessment and plan: Oxycodone remains on hold because of concerns regarding respiratory depression. He has not had pain complaints. Monitor for any potential withdrawal symptoms or pain and reinstitute oxycodone if these occur. (9) Hypothyroidism: Status: Chronic Assessment and plan: TSH suppressed but free T4 normal, no change in dosing. (10) Atrial flutter, paroxysmal: Status: Chronic Assessment and plan: No recurrence of a flutter thus far. No bleeding complications from anticoagulation. Subjective Subjective Interval history since last seen: Mr. Corley was lethargic through the night and into the [employer], however midmorning he became much more alert and by midday is up talking eating and acting back to baseline. He denies headache or focal weakness. He does not have much in the way of recollection from yesterday other than he was feeling very tired and recognizes he was confused. His fever has resolved. His blood cultures remain negative. His urine culture is growing intermediate colony count of mixed gram-positive vijay. His MRSA screen is positive. He denies shortness of breath, chest pain. He is not had a cough. He denies nausea or abdominal pain. Blood sugars have been running high. Exam Narrative Exam Narrative: Initial exam this morning somnolent and barely arousable. Midday exam he is awake alert talkative and in no apparent respiratory distress. Poor dentition. Neck veins not distended. Lungs with somewhat diminished breath sounds at the bases, some very faint late inspiratory crackles in the dependent region the left lower lung field but overall clear. No heart murmur S3 or S4. Bowel sounds active. Soft stool in his ostomy. Bruising around the right knee with excoriations present but no erythema. No pitting edema at the ankles. Objective Objective Clinical Data: Abnormal lab results 02/24/19 02/24/19 Range/Units 05:40 05:40 RBC 4.42 L (4.50-6.00) m/cumm Hgb 10.0 L (13.5-17.5) g/dL Hct 34.0 L (40.0-50.0) % MCV 76.9 L (80-95) fL MCH 22.6 L (27.0-33.0) pg MCHC 29.4 L (32.0-36.0) g/dL RDW 15.9 H (11.8-14.1) % Carbon Dioxide 32.2 H (21.0-32.0) mmol/L BUN 46 H D (7-18) mg/dL Creatinine 2.51 H (0.70-1.30) mg/dL Glucose 337 H D (74-106) mg/dL TSH 0.29 L (0.36-3.74) uIU/mL Vital Signs Temperature 36.8 C 02/24/19 11:58 Temperature Source Temporal Artery Scan 02/24/19 11:58 Pulse 64 02/24/19 15:00 Pulse 60 02/24/19 15:50 Respiratory Rate 15 02/24/19 15:50 Respiratory Effort Non-Labored 02/24/19 11:58 Respiratory Depth Normal 02/24/19 11:58 Respiratory Pattern Normal 02/24/19 11:58 Blood Pressure 139/69 02/24/19 15:00 Blood Pressure Mean 85 02/24/19 15:00 Blood Pressure Position Left Lateral 02/24/19 05:08 Pulse Oximetry 91 L 02/24/19 15:50 Respiratory End-tidal CO2 58 02/23/19 11:50 Oxygen Delivery Method Room Air 02/24/19 11:58 Oxygen Flow Rate 0 02/24/19 11:58 Fraction of Inspired Oxygen (FIO2) 21 02/24/19 08:31 Pain Level 0 02/24/19 15:35 Intake & Output 02/23/19 02/24/19 02/24/19 23:59 11:59 23:59 Intake Total 100 / 100 1768.667 / 3060.000 1291.333 / 3060.000 Output Total 1000 / 1750 750 / 1750 Balance 100 / 100 768.667 / 1310.000 541.333 / 1310.000 Weight 104.3 kg Intake: IV 100 / 100 1118.667 / 1910.000 791.333 / 1910.000 Oral 650 / 1150 500 / 1150 Output: Urine 750 / 1250 500 / 1250 Stool 250 / 500 250 / 500 Other: Urine Color Yellow Yellow Yellow Urine Appearance Purulent Cloudy Clear Sediment Comment ruiz to gravity Patient has chronic indwelling ruiz Stool Occult Blood Negative Negative Stool Characteristics Liquid Laboratory Results WBC 7.95 k/cumm (4.4-10.8) D 02/24/19 05:40 RBC 4.42 m/cumm (4.50-6.00) L 02/24/19 05:40 Hgb 10.0 g/dL (13.5-17.5) L 02/24/19 05:40 Hct 34.0 % (40.0-50.0) L 02/24/19 05:40 MCV 76.9 fL (80-95) L 02/24/19 05:40 MCH 22.6 pg (27.0-33.0) L 02/24/19 05:40 MCHC 29.4 g/dL (32.0-36.0) L 02/24/19 05:40 RDW 15.9 % (11.8-14.1) H 02/24/19 05:40 Plt Count 384 x1000/uL (130-400) 02/24/19 05:40 MPV 9.7 fL (8.0-11.0) 02/24/19 05:40 Immature Gran % 0.5 02/23/19 11:55 Neutrophils % 91.4 02/23/19 11:55 Lymphocytes % 2.8 02/23/19 11:55 Monocytes % 4.0 02/23/19 11:55 Eosinophils % 1.1 02/23/19 11:55 Basophils % 0.2 02/23/19 11:55 Absolute Neutrophils 13.59 k/cumm (1.2-6.7) H 02/23/19 11:55 Absolute Lymphocytes 0.42 k/cumm (1.2-3.4) L 02/23/19 11:55 Absolute Monocytes 0.59 k/cumm (0.11-0.7) 02/23/19 11:55 Absolute Eosinophils 0.16 k/cumm (0.0-0.7) 02/23/19 11:55 Absolute Basophils 0.03 k/cumm (0.0-0.2) 02/23/19 11:55 Sample Site Right radial 02/23/19 12:38 pCO2 59 mmHg (34-47) H 02/23/19 12:38 pO2 107 mmHg (83-108) 02/23/19 12:38 O2 Saturation 99 % (94-98) H 02/23/19 12:38 ABG pH 7.36 (7.35-7.45) 02/23/19 12:38 ABG HCO3 33 mmol/L (22-28) H 02/23/19 12:38 ABG Total CO2 32 mmol/L (22-29) H 02/23/19 12:38 ABG Base Excess 7.8 mmol/L (-3-3) H 02/23/19 12:38 FiO2 40 % 02/23/19 12:38 Sodium 145 mmol/L (136-145) 02/24/19 05:40 Potassium 4.0 mmol/L (3.5-5.1) 02/24/19 05:40 Chloride 106 mmol/L (98-107) 02/24/19 05:40 Carbon Dioxide 32.2 mmol/L (21.0-32.0) H 02/24/19 05:40 Anion Gap 6.8 mmol/L (3-11) 02/24/19 05:40 BUN 46 mg/dL (7-18) H D 02/24/19 05:40 Creatinine 2.51 mg/dL (0.70-1.30) H 02/24/19 05:40 Estimated GFR/1.73 m2 26.44 (mL/min/1.73m2) 02/24/19 05:40 Glucose 337 mg/dL (74-106) H D 02/24/19 05:40 Lactate 0.7 mmol/L (0.6-1.4) 02/23/19 11:55 Calcium 8.6 mg/dL (8.5-10.1) 02/24/19 05:40 Magnesium 1.8 mg/dL (1.8-2.4) 02/23/19 11:55 Total Bilirubin 0.3 mg/dL (0.2-1.0) 02/23/19 11:55 AST 6 U/L (15-37) L 02/23/19 11:55 ALT 13 U/L (16-63) L 02/23/19 11:55 Alkaline Phosphatase 131 U/L (46-116) H 02/23/19 11:55 Troponin I < 0.05 ng/Ml (<0.06) 02/23/19 11:55 NT-Pro-B Natriuret Pep 993 pg/mL (<300) H 02/23/19 11:55 Total Protein 7.0 g/dL (6.4-8.2) 02/23/19 11:55 Albumin 2.5 g/dL (3.4-5.0) L 02/23/19 11:55 TSH 0.29 uIU/mL (0.36-3.74) L 02/24/19 05:40 Free T4 0.92 ng/dL (0.76-1.46) 02/24/19 05:40 Urine Color Yellow (Yellow) 02/23/19 12:25 Urine Clarity Cloudy (Clear) 02/23/19 12:25 Urine pH 5.5 (5-8) 02/23/19 12:25 Ur Specific [place] 1.015 (1.005-1.025) 02/23/19 12:25 Urine Protein 30 mg/dL (Negative) H 02/23/19 12:25 Urine Ketones Negative mg/dL (Negative) 02/23/19 12:25 Urine Blood Large (Negative) H 02/23/19 12:25 Urine Nitrite Negative (Negative) 02/23/19 12:25 Urine Bilirubin Negative (Negative) 02/23/19 12:25 Urine Urobilinogen 0.2 EU/dL (Up TO 0.2) 02/23/19 12:25 Ur Leukocyte Esterase Large (Negative) H 02/23/19 12:25 Urine RBC Not Applicable 02/23/19 12:25 Urine WBC >50 HPF (0-5) H 02/23/19 12:25 Ur Epithelial Cells Not Applicable 02/23/19 12:25 Urine Crystals Not Applicable 02/23/19 12:25 Urine Bacteria Not Applicable 02/23/19 12:25 Urine Mucus Not Applicable 02/23/19 12:25 Ur Culture Indicated? Yes 02/23/19 12:25 Urine Glucose Negative mg/dL (Negative) 02/23/19 12:25
[2019-02-24] MEDS: Normal Saline 1,000 ML 100 ML IV (17:24)
[2019-02-24] MEDS: Insulin Glargine 300 UNITS/3 ML PEN 55 UNITS SC (19:33)
[2019-02-24] MEDS: Ferrous Sulfate 325 MG TAB PO (19:37)
[2019-02-24] MEDS: risperiDONE 1 MG TAB 2 MG PO (21:27)
[2019-02-25] VITALS (101 sets, daily range): BP systolic 136–183; BP diastolic 68–74; PULSE 53–86; RESP 13–31; TEMP 36.6–36.8; O2SAT 86–100
[2019-02-25] MEDS: PIPERACILLIN/TAZO 3.375 GM in Normal Saline 50 ML IVPB ×3 (03:35→16:34)
[2019-02-25] MEDS: Hydrocortisone SOD SUC. 100 MG VIAL IVP (03:35)
[2019-02-25] MEDS: Normal Saline 1,000 ML 100 ML IV (03:36)
[2019-02-25] MEDS: Levothyroxine 25 MCG TAB PO (05:59)
[2019-02-25 07:29] LABS: Anion Gap 7.9 mmol/L (3-11); BUN 55 mg/dL (7-18); CO2 29.1 mmol/L (21.0-32.0); CREATININE 2.64 mg/dL (0.70-1.30); Calcium 8.4 mg/dL (8.5-10.1); Chloride 104 mmol/L (98-107); Estimated GFR 24.95 (mL/min/1.73m2); Glucose 277 mg/dL (74-106); Potassium 4.1 mmol/L (3.5-5.1); Sodium 141 mmol/L (136-145)
[2019-02-25] MEDS: Insulin Aspart 300 UNITS/3 ML PEN SC ×3 (08:16→16:45)
[2019-02-25] MEDS: Insulin Glargine 300 UNITS/3 ML PEN 55 UNITS SC (08:21)
[2019-02-25] MEDS: Apixaban 5 MG TAB PO ×2 (08:35→20:00)
[2019-02-25] MEDS: amLODIPine 5 MG TAB PO (08:35)
[2019-02-25] MEDS: Ascorbic Acid 500 MG TAB 250 MG PO ×2 (08:37→20:01)
[2019-02-25] MEDS: cloNIDine 0.1 MG TAB PO ×3 (08:39→20:00)
[2019-02-25] MEDS: Cyanocobalamin 500 MCG TAB 1000 MCG PO (08:39)
[2019-02-25] MEDS: Ferrous Sulfate 325 MG TAB PO ×2 (08:40→20:01)
[2019-02-25] MEDS: Pantoprazole 40 MG TABCR PO (08:41)
[2019-02-25] MEDS: predniSONE 20 MG TAB 40 MG PO (08:42)
[2019-02-25] MEDS: Sodium Bicarbonate 650 MG TAB PO ×3 (08:42→20:02)
[2019-02-25] MEDS: Terazosin 2 MG CAP 4 MG PO ×2 (08:45→20:02)
[2019-02-25] MEDS: SODIUM CHLORIDE 0.45% 1,000 ML 125 ML IV ×2 (08:57→19:59)
[2019-02-25] MEDS: Venlafaxine 37.5 MG CAPCR PO (09:13)
[2019-02-25] MEDS: Magnesium Chloride 64 MG TABCR PO ×2 (10:29→22:45)
--- NOTE | 2019-02-25 10:53 | CMPROGNOTE_ITS ---
Care Management Progress Note S/O: Brendan was sitting up on the side of his bed. He transitioned to M/S level of care last evening and continues to progress toward discharge. CM faxed updated clinicals to the [facility] and notified of anticipated discharge for tomorrow. CM continues to follow. A: 58 year old male admitted to [facility] 02/23/19 for AMS, Respiratory distress, Urinary P: Brendan will continue to be closely monitored in the ICU and will be discharged back to the [facility] when he medically ready. He will transport via [facility]. CM to provide support and coordinate transition back to the [facility] when appropriate.
[2019-02-25] MEDS: Gabapentin 300 MG CAP PO ×3 (12:30→20:02)
--- NOTE | 2019-02-25 12:43 | W.NUTCONSULT ---
Date of service: 02/25/19 Time of Service: 12:43 Nutritional Consult ASSESSMENT: 58 year old male, bed bound, living in LTC facility admitted with respiratory distress, probable UTI leading to altered mental status. BMI indicates class 1 obesity. PMH: IDDM with pressure ulcers to left foot and sacrum, CKD, Obesity, HTN. Following CHO diet with excellent intake. DM consult provided by DM educator. Nutrient needs higher in view of multiple pressure wounds. Estimated needs: [id number] kcal, 125-130 g protein, 2600 ml fluid. Not Meeting nutrient needs at this time. Blood sugars noted to be elevated. Meds include prednisone and most likely contributing to elevated glucose. Vitamins include Vit C, B12 and FeS04. Brendan at high nutritional risk and at risk for poor wound healing in view of elevated blood sugars and lack of protein intake. recommend adding Enrique 1 packet bid to aid in healing. Did not meet with Brendan, he was sleeping at time of visit. NUTRITIONAL DIAGNOSIS: IDDM, hyperglycemia, obesity INTERVENTION: recommend enrique 1 packet BID to provide additional protein/nutrients for optimal wound healing in view of multiple pressure wounds MONITORING AND EVALUATION: will monitor po intake, weight trends and wound healing Time Spent in Nutritional Counseling and Treatment: 0 time spent face to face
--- NOTE | 2019-02-25 16:55 | PGE_ITS ---
Date of Service Date of service: 02/25/19 Time of Service: 08:55 Assessment and Plan Assessment and plan (1) Altered mental status: Status: Acute Assessment and plan: Mental status back to baseline. Because of his transient encephalopathy not clear to me. Does not appear to be infectious with unremarkable urine culture negative blood culture. No recent changes in medicat ion. Perhaps a gradual accumulation of sedative drugs? Discontinue trazodone permanently. He has not required oxycodone since arrival here and perhaps he can do without this as well. (2) Respiratory distress, acute: Status: Acute Assessment and plan: No recurrence. Maintaining oxygen saturation fine. Problem resolved. (3) UTI (urinary tract infection): Status: Acute Assessment and plan: Only yeast isolated from his recent urine culture. I do not think this is causing an invasive infection and does not require treatment. I am discontinuing Zosyn and we will monitor for fever or other symptoms. (4) Acute on chronic renal insufficiency: Status: Acute Assessment and plan: BUN and creatinine continue to climb although still within the range she has fluctuated in the past. Continue IV fluids and hold diuretic today. (5) Diabetes mellitus: Status: Chronic Assessment and plan: Blood sugar still running high. Steroid dose being weaned. Increase glargine insulin and aspart and monitor blood sugar response. 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 (7) Hypertension: Status: Chronic Assessment and plan: Blood pressure acceptable on his current combination of central and peripheral alpha blockers, diuretic and calcium channel lia. (8) Chronic pain: Status: Chronic Assessment and plan: No withdrawal symptoms and no complaints of pain. Continue to follow. (9) Atrial flutter, paroxysmal: Status: Chronic Assessment and plan: No recurrence of a flutter thus far. No bleeding complications from anticoagulation. Subjective Subjective Interval history since last seen: Feels much better. Slept reasonably well. No pain on no oxycodone. Reports that he does not want to continue to take trazodone as he thinks it has made him too sleepy recently. Maintain oxygen saturations overnight without any BiPAP support. Urine output good. Stool output normal for him. No cough. No chest pain. Blood sugar still running high. No A. fib on telemetry. No bleeding complications. BUN and creatinine have crept up slightly. Urine culture with only yeast. Exam Narrative Exam Narrative: Awake alert knows where he is and why. Poor dentition. No facial swelling. Cannot see neck veins. Lungs with diminished breath sounds at the left base, dependent region where he recently has been lying on his left side, do not hear any crackles or wheezing. Regular heart rhythm with no murmur S3 or S4 heard. Abdomen obese soft with active bowel sounds. No tenderness in the upper abdomen equivocal non-consistent mild discomfort in the left lower quadrant. No pitting edema of his feet. Superficial erosion on the dorsum of the left fourth toe clean, scant drainage on the dressing. Objective Objective Clinical Data: Abnormal lab results 02/25/19 Range/Units 06:05 BUN 55 H (7-18) mg/dL Creatinine 2.64 H (0.70-1.30) mg/dL Glucose 277 H (74-106) mg/dL Calcium 8.4 L (8.5-10.1) mg/dL Vital Signs Temperature 36.6 C 02/25/19 16:47 Temperature Source Temporal Artery Scan 02/25/19 16:47 Pulse 63 02/25/19 16:47 Pulse Rhythm Regular 02/25/19 12:35 Pulse 67 02/25/19 15:30 Respiratory Rate 23 02/25/19 16:47 Respiratory Effort Non-Labored 02/25/19 12:35 Respiratory Depth Normal 02/25/19 12:35 Respiratory Pattern Normal 02/25/19 12:35 Blood Pressure 136/68 02/25/19 16:47 Blood Pressure Mean 98 02/25/19 12:51 Blood Pressure Position Left Lateral 02/24/19 05:08 Pulse Oximetry 97 02/25/19 16:47 Respiratory End-tidal CO2 58 02/23/19 11:50 Oxygen Delivery Method Room Air 02/25/19 16:47 Oxygen Flow Rate 0 02/25/19 16:47 Fraction of Inspired Oxygen (FIO2) 21 02/24/19 08:31 Pain Level 0 02/25/19 16:47 Intake & Output 02/24/19 02/25/19 02/25/19 23:59 11:59 23:59 Intake Total 3181.333 / 4950.000 1510 / 1830 320 / 1830 Output Total 1800 / 2800 1350 / 2900 1550 / 2900 Balance 1381.333 / 2150.000 160 / -1070 -1230 / -1070 Intake: IV 1841.333 / 2960.000 1510 / 1510 Oral 1340 / 1990 320 / 320 Output: Urine 1300 / 2050 650 / 1400 750 / 1400 Stool 500 / 750 700 / 1500 800 / 1500 Other: Urine Color Yellow Urine Appearance Clear Clear Cloudy Stool Occult Blood Negative Negative Stool Size Large Stool Characteristics Liquid Brown Green Laboratory Results WBC 7.95 k/cumm (4.4-10.8) D 02/24/19 05:40 RBC 4.42 m/cumm (4.50-6.00) L 02/24/19 05:40 Hgb 10.0 g/dL (13.5-17.5) L 02/24/19 05:40 Hct 34.0 % (40.0-50.0) L 02/24/19 05:40 MCV 76.9 fL (80-95) L 02/24/19 05:40 MCH 22.6 pg (27.0-33.0) L 02/24/19 05:40 MCHC 29.4 g/dL (32.0-36.0) L 02/24/19 05:40 RDW 15.9 % (11.8-14.1) H 02/24/19 05:40 Plt Count 384 x1000/uL (130-400) 02/24/19 05:40 MPV 9.7 fL (8.0-11.0) 02/24/19 05:40 Immature Gran % 0.5 02/23/19 11:55 Neutrophils % 91.4 02/23/19 11:55 Lymphocytes % 2.8 02/23/19 11:55 Monocytes % 4.0 02/23/19 11:55 Eosinophils % 1.1 02/23/19 11:55 Basophils % 0.2 02/23/19 11:55 Absolute Neutrophils 13.59 k/cumm (1.2-6.7) H 02/23/19 11:55 Absolute Lymphocytes 0.42 k/cumm (1.2-3.4) L 02/23/19 11:55 Absolute Monocytes 0.59 k/cumm (0.11-0.7) 02/23/19 11:55 Absolute Eosinophils 0.16 k/cumm (0.0-0.7) 02/23/19 11:55 Absolute Basophils 0.03 k/cumm (0.0-0.2) 02/23/19 11:55 Sample Site Right radial 02/23/19 12:38 pCO2 59 mmHg (34-47) H 02/23/19 12:38 pO2 107 mmHg (83-108) 02/23/19 12:38 O2 Saturation 99 % (94-98) H 02/23/19 12:38 ABG pH 7.36 (7.35-7.45) 02/23/19 12:38 ABG HCO3 33 mmol/L (22-28) H 02/23/19 12:38 ABG Total CO2 32 mmol/L (22-29) H 02/23/19 12:38 ABG Base Excess 7.8 mmol/L (-3-3) H 02/23/19 12:38 FiO2 40 % 02/23/19 12:38 Sodium 141 mmol/L (136-145) 02/25/19 06:05 Potassium 4.1 mmol/L (3.5-5.1) 02/25/19 06:05 Chloride 104 mmol/L (98-107) 02/25/19 06:05 Carbon Dioxide 29.1 mmol/L (21.0-32.0) 02/25/19 06:05 Anion Gap 7.9 mmol/L (3-11) 02/25/19 06:05 BUN 55 mg/dL (7-18) H 02/25/19 06:05 Creatinine 2.64 mg/dL (0.70-1.30) H 02/25/19 06:05 Estimated GFR/1.73 m2 24.95 (mL/min/1.73m2) 02/25/19 06:05 Glucose 277 mg/dL (74-106) H 02/25/19 06:05 Lactate 0.7 mmol/L (0.6-1.4) 02/23/19 11:55 Calcium 8.4 mg/dL (8.5-10.1) L 02/25/19 06:05 Magnesium 1.8 mg/dL (1.8-2.4) 02/23/19 11:55 Total Bilirubin 0.3 mg/dL (0.2-1.0) 02/23/19 11:55 AST 6 U/L (15-37) L 02/23/19 11:55 ALT 13 U/L (16-63) L 02/23/19 11:55 Alkaline Phosphatase 131 U/L (46-116) H 02/23/19 11:55 Troponin I < 0.05 ng/Ml (<0.06) 02/23/19 11:55 NT-Pro-B Natriuret Pep 993 pg/mL (<300) H 02/23/19 11:55 Total Protein 7.0 g/dL (6.4-8.2) 02/23/19 11:55 Albumin 2.5 g/dL (3.4-5.0) L 02/23/19 11:55 TSH 0.29 uIU/mL (0.36-3.74) L 02/24/19 05:40 Free T4 0.92 ng/dL (0.76-1.46) 02/24/19 05:40 Urine Color Yellow (Yellow) 02/23/19 12:25 Urine Clarity Cloudy (Clear) 02/23/19 12:25 Urine pH 5.5 (5-8) 02/23/19 12:25 Ur Specific [place] 1.015 (1.005-1.025) 02/23/19 12:25 Urine Protein 30 mg/dL (Negative) H 02/23/19 12:25 Urine Ketones Negative mg/dL (Negative) 02/23/19 12:25 Urine Blood Large (Negative) H 02/23/19 12:25 Urine Nitrite Negative (Negative) 02/23/19 12:25 Urine Bilirubin Negative (Negative) 02/23/19 12:25 Urine Urobilinogen 0.2 EU/dL (Up TO 0.2) 02/23/19 12:25 Ur Leukocyte Esterase Large (Negative) H 02/23/19 12:25 Urine RBC Not Applicable 02/23/19 12:25 Urine WBC >50 HPF (0-5) H 02/23/19 12:25 Ur Epithelial Cells Not Applicable 02/23/19 12:25 Urine Crystals Not Applicable 02/23/19 12:25 Urine Bacteria Not Applicable 02/23/19 12:25 Urine Mucus Not Applicable 02/23/19 12:25 Ur Culture Indicated? Yes 02/23/19 12:25 Urine Glucose Negative mg/dL (Negative) 02/23/19 12:25
[2019-02-25] MEDS: Insulin Glargine 300 UNITS/3 ML PEN 65 UNITS SC (20:03)
[2019-02-25] MEDS: risperiDONE 1 MG TAB 2 MG PO (22:45)
[2019-02-26] VITALS (53 sets, daily range): BP systolic 160–163; BP diastolic 71–76; PULSE 53–78; RESP 15–28; TEMP 36.6; O2SAT 86–988
[2019-02-26] MEDS: SODIUM CHLORIDE 0.45% 1,000 ML 125 ML IV (04:25)
[2019-02-26] MEDS: Levothyroxine 25 MCG TAB PO (05:44)
[2019-02-26 07:06] LABS: Anion Gap 4.8 mmol/L (3-11); BUN 52 mg/dL (7-18); CO2 28.2 mmol/L (21.0-32.0); CREATININE 2.97 mg/dL (0.70-1.30); Calcium 8.7 mg/dL (8.5-10.1); Chloride 108 mmol/L (98-107); Estimated GFR 21.78 (mL/min/1.73m2); Glucose 214 mg/dL (74-106); Potassium 4.2 mmol/L (3.5-5.1); Sodium 141 mmol/L (136-145)
[2019-02-26] MEDS: Insulin Aspart 300 UNITS/3 ML PEN SC ×2 (08:07→11:15)
[2019-02-26] MEDS: Insulin Glargine 300 UNITS/3 ML PEN 65 UNITS SC (08:13)
[2019-02-26] MEDS: Pantoprazole 40 MG TABCR PO (08:16)
[2019-02-26] MEDS: Apixaban 5 MG TAB PO (08:17)
[2019-02-26] MEDS: amLODIPine 5 MG TAB PO (08:17)
[2019-02-26] MEDS: Ascorbic Acid 500 MG TAB 250 MG PO (08:18)
[2019-02-26] MEDS: cloNIDine 0.1 MG TAB PO (08:18)
[2019-02-26] MEDS: Cyanocobalamin 500 MCG TAB 1000 MCG PO (08:18)
[2019-02-26] MEDS: Gabapentin 300 MG CAP PO (08:19)
[2019-02-26] MEDS: Ferrous Sulfate 325 MG TAB PO (08:19)
[2019-02-26] MEDS: predniSONE 10 MG TAB 30 MG PO (08:19)
[2019-02-26] MEDS: Venlafaxine 37.5 MG CAPCR PO (08:20)
[2019-02-26] MEDS: Sodium Bicarbonate 650 MG TAB PO (08:20)
[2019-02-26] MEDS: Terazosin 2 MG CAP 4 MG PO (08:20)
[2019-02-26] MEDS: Magnesium Chloride 64 MG TABCR PO (09:13)
--- NOTE | 2019-02-26 09:57 | DSE_ITS ---
Date of service: 02/26/19 Time of Service: 09:57 DS: Diagnosis Discharge Diagnosis (1) Altered mental status: Status: Acute Asessment and Plan: Lethargic to obtunded on presentation, his mental status improved dramatically by midday of his first hospital day. Initially I attributed his altered mental status and lethargy to likely urosepsis. However, blood cultures negative and urine only grew yeast. He has adrenal insufficiency and was given stress dose steroids on presentation and perhaps this played a role in his prompt improvement? Working diagnosis at the time of discharge is that his altered mental status was due to iatrogenic effects of sedative medications. However, this is not at all a secure diagnosis. He was not placed on trazodone or oxycodone during this hospitalization and had no problems with sleep or pain. I recommend these medications be removed from his chronic medication list. (2) Respiratory distress, acute: Status: Acute Asessment and Plan: When he was lethargic/obtunded he had transient hypoventilation, brief BiPAP support. Prompt improvement in his mental status with resumption of normal respiratory rate and depth. He did not require further ventilatory support nor supplemental oxygen. Initial concern of possible pneumonia or heart failure did not bear out over time with unremarkable lung exam and absence of symptoms. Likely that his respiratory distress was a manifestation of what ever the process was that caused his sedation and altered mental status. (3) UTI (urinary tract infection): Status: Acute Asessment and Plan: Significant pyuria with initial urinalysis but culture only grew yeast. He was empirically started on Zosyn with concerns of urosepsis which was discontinued when urine culture results returned. He had a brief low- grade fever on his first hospital night and afebrile thereafter with no recurrence of fever after antibiotics were discontinued. He had a Downing catheter through his hospitalization which is discontinued on the day of discharge. (4) Acute on chronic renal insufficiency: Status: Acute Asessment and Plan: Creatinine on admission was higher than his most recent past creatinine at 2.12 (1.69 on January 18, 2019). Regrettably his creatinine continued to climb throughout his hospitalization and is 2.97 on the morning of discharge despite avoiding any possible obstructive uropathy with a Downnig catheter, IV hydration, and tailoring back some of his medications, including his furosemide. His urine output was adequate without the diuretic. He was not acidemic with his usual oral bicarb supplement. He did not become hyperkalemic. He did not manifest any problems of fluid retention. The cause for his worsening renal function was not identified during this hospitalization. His renal function will need to be followed closely as an outpatient. (5) Diabetes mellitus: Status: Chronic Asessment and Plan: Blood sugars ran high for much of his hospitalization, improving by the day of discharge with an increase in his glargine dose and tapering of steroids. He is being discharged on a slightly higher glargine dose than on presentation. (6) Adrenal insufficiency: Status: Chronic Asessment and Plan: He received stress dose steroids for 24 hours then transition to prednisone with a planned rapid taper back to his baseline 10 mg daily. (7) Hypertension: Status: Chronic Asessment and Plan: Blood pressures were never low and ranged from 140-180 systolic during his hospitalization on his usual doses of amlodipine, clonidine and terazosin, with furosemide on hold. He is being discharged off furosemide and his blood pressure will need to be monitored further. (8) Chronic pain: Status: Chronic Asessment and Plan: Because of concerns about sedation and respiratory depression he did not receive any opiates during his hospitalization and did not have any pain complaints. He had no symptoms to suggest opiate withdrawal. (9) Atrial flutter, paroxysmal: Status: Chronic Asessment and Plan: No recurrence of atrial dysrhythmias during hospitalization and no bleeding complications from his chronic anticoagulation. No changes were made regarding this problem. (10) Diabetic foot ulcer: Status: Chronic Asessment and Plan: Small ulcer on the dorsum of his left fourth toe and on the plantar aspect with no signs of infection during this hospitalization. He continue with topical dressing changes. Discharge Plan Disposition Patient Disposition: SNF (LEVEL 1) [facility] Condition: Improving Discharge Details Chief Complaint: SOB Clinical Impression: Acute on chronic clinical systolic heart failure, Hypercarbia, UTI (urinary tract infection) Reason For Visit: ALTERED MENTAL STATUS, RESPIRATORY DISTRESS, URINA Admit Date/Time: 02/23/19 15:31 Admit Provider: Scar Gan Attending Provider: Scar Gan Primary Care Provider: Lou Maldonado ED Provider: Reny Trejo Hospital Course Hospital Course: 58-year-old resident of [facility] with a history of adrenal insufficiency, diabetes, hypothyroidism, paroxysmal a flutter, recurrent urinary tract infections, chronic kidney disease who presented to the emergency room with history of fever, lethargy/obtundation, and respiratory distress with CO2 retention and hypoxemia requiring BiPAP support in the ER, no obvious focus of infection on exam, pyuria on initial urine sampling from catheterization of the bladder, poor quality chest x-ray inconclusive for any specific diagnosis but could be compatible with pneumonia or heart failure. He was placed on BiPAP, blood and urine cultures obtained and he was started on Zosyn empirically and admitted to the ICU for further evaluation and management. Please refer to the diagnoses section for hospital course by problem. He will need to have follow-up BMP next week because of worsening BUN and creatinine. Medication changes made during this hospitalization: Trazodone, oxycodone and furosemide stopped (furosemide may need to be reintroduced depending upon fluid balance, kidney function and blood pressure). Prednisone dose on a rapid taper, 30 mg given on the day of discharge, 20 mg tomorrow, February 27 and then resuming 10 mg of prednisone thereafter on February 28. Glargine insulin increased to 65 units Home Meds and New Rx's Prescriptions: New prednisone 20 mg Tablet 20 mg PO DAILY Qty: 1 RF: 0 Lantus Solostar U-100 Insulin 100 unit/mL (3 mL) Insulin Pen 65 units subcut BID Qty: 1 RF: 0 Continued cyanocobalamin (vitamin B-12) 1,000 mcg Tablet 1,000 mcg PO DAILY RF: 0 ferrous sulfate 325 mg (65 mg iron) Tablet 325 mg PO BID Qty: 0 RF: 0 ascorbic acid (vitamin C) [Vitamin C] 250 mg Tablet 1 tab PO BID RF: 0 Centrum Complete 18-400 mg-mcg Tablet 1 tab PO DAILY RF: 0 acidophilus-pectin, citrus 25 million cell -100 mg Tablet 1 cap PO TID Qty: 0 RF: 0 levothyroxine 25 mcg Tablet 25 mcg PO DAILY@0600 Qty: 30 RF: 0 Eliquis 5 mg Tablet 5 mg PO BID Qty: 60 RF: 0 Novolog Flexpen U-100 Insulin 100 unit/mL Insulin Pen See Rx Instructions .ROUTE .COMPLEX Qty: 15 RF: 0 pantoprazole 40 mg Tablet,Delayed Release (Dr/Ec) 40 mg PO DAILY Qty: 60 RF: 0 melatonin 3 mg Tablet Extended Release 6 mg PO HS Qty: 30 RF: 0 sodium bicarbonate 650 mg Tablet 650 mg PO TID Qty: 90 RF: 0 calcium carbonate-vitamin D3 [Calcium 500 + D] 500 mg(1,250mg) -400 unit Tablet 1 tab PO BID RF: 0 amlodipine 5 mg Tablet 5 mg PO DAILY Qty: 0 RF: 0 clonidine HCl [Catapres] 0.1 mg Tablet 0.1 mg PO TID Qty: 0 RF: 0 risperidone [Risperdal] 2 mg Tablet 2 mg PO DAILY RF: 0 acetaminophen [Tylenol] 325 mg tablet 1,000 mg PO TID RF: 0 gabapentin 100 mg capsule 300 mg PO TID RF: 0 terazosin 2 mg Capsule 4 mg PO BID Qty: 0 RF: 0 magnesium chloride [Mag 64] 64 mg Tablet,Delayed Release (Dr/Ec) 64 mg PO BID Qty: 0 RF: 0 venlafaxine [Effexor XR] 37.5 mg Capsule,Extended Release 24hr 112.5 mg PO DAILY RF: 0 Zyrtec 10 mg Capsule 10 mg PO DAILY RF: 0 prednisone 5 mg tablet 10 mg PO DAILY RF: 0 Discontinued trazodone 50 mg Tablet 50 mg PO HS Qty: 30 RF: 0 oxycodone 5 mg capsule 10 mg PO BID RF: 0 Lantus Solostar U-100 Insulin 100 unit/mL (3 mL) insulin pen 45 unit subcut BID RF: 0 furosemide 40 mg Tablet 40 mg PO DAILY Qty: 0 RF: 0 Discharge Instructions Additional Instructions: Resume usual wound care for left foot. Check blood sugars fasting and AC for the next week. Activity:: Activity as Tolerated Equipment/Supplies:: No Equipment Needed Diet:: Carb Counting Discharge Orders Discharge Orders: Discharge Order (Routine); Ordered 02/26/19 Ordered By: Scar Gan DS: Summary Status at Discharge Functional status at discharge: wheelchair bound Overall status at discharge: patient is back to baseline Mental Status: mental status grossly normal Speech and Movement: speech and movement normal Mood: congruent mood Affect: normal affect Time Spent with Patient providing and/or coordinating discharge services: Greater than 30 minutes Exam Narrative Exam Narrative: On the morning of discharge she is awake and talkative and in no respiratory distress. Afebrile with a blood pressure of 160/76 pulse rate in the 60s SaO2 on room air 95%. -1700 fluid balance in the past 24 hours on no diuretic. He has poor dentition. Lungs have slightly diminished breath sounds in the dependent portion of the left lower lung where he had been lying but no crackles or wheezing. Heart rhythm regular with no murmur S3 or S4 heard. Active bowel sounds with soft stool, non-melanotic in his ostomy bag. Chronic pigment changes on his lower extremities with no pitting edema. Very superf icial ulcer the left second toe dorsum with no erythema and scant discharge. He has diminished sensation in his feet from his chronic neuropathy. He is able to turn in bed unassisted. Psych Mental Status: mental status grossly normal Speech and Movement: speech and movement normal Mood: congruent mood Affect: normal affect DS: Data Vitals/I&O Vitals and I&O: Vital Signs Temperature 36.6 C 02/26/19 08:30 Temperature Source Temporal Artery Scan 02/26/19 08:30 Pulse 61 02/26/19 08:30 Pulse Rhythm Regular 02/26/19 00:07 Pulse 57 L 02/25/19 23:10 Respiratory Rate 19 02/26/19 08:30 Respiratory Effort Non-Labored 02/26/19 00:07 Respiratory Depth Normal 02/26/19 00:07 Respiratory Pattern Normal 02/26/19 00:07 Blood Pressure 160/76 H 02/26/19 08:30 Blood Pressure Mean 87 02/25/19 20:11 Blood Pressure Position Left Lateral 02/24/19 05:08 Pulse Oximetry 988 H 02/26/19 08:30 Respiratory End-tidal CO2 58 02/23/19 11:50 Oxygen Delivery Method Room Air 02/26/19 09:22 Oxygen Flow Rate 0 02/26/19 09:22 Fraction of Inspired Oxygen (FIO2) 21 02/24/19 08:31 Pain Level 0 02/26/19 08:30 Intake & Output 02/25/19 02/25/19 02/26/19 11:59 23:59 11:59 Intake Total 1630 / 4240 2610 / 4240 1577.5 / 1577.5 Output Total 1350 / 4200 2850 / 4200 1900 / 1900 Balance 280 / 40 -240 / 40 -322.5 / -322.5 Intake: IV 1510 / 3560 2050 / 3560 1337.5 / 1337.5 Oral 120 / 680 560 / 680 240 / 240 Output: Urine 650 / 2150 1500 / 2150 1300 / 1300 Stool 700 / 2050 1350 / 2050 600 / 600 Other: Urine Color Pale Yellow Yellow Urine Appearance Clear Cloudy Clear Sediment Urine Odor None Stool Occult Blood Negative Negative Stool Size Moderate Stool Characteristics Liquid Brown Voiding Methods Indwelling Catheter Data Completed and Pending Labs on day of discharge: Labs from last 24 hours 02/26/19 06:15 Sodium 141 Potassium 4.2 Chloride 108 H Carbon Dioxide 28.2 Anion Gap 4.8 BUN 52 H Creatinine 2.97 H Estimated GFR/1.73 m2 21.78 Glucose 214 H Calcium 8.7 Preliminary micro results at discharge 02/23/19 11:55 Blood Culture - Preliminary Blood NO GROWTH 48 HOURS 02/23/19 11:55 Blood Culture - Preliminary Blood NO GROWTH 48 HOURS Urine culture growing yeast and low colony count of mixed gram-positive viajy. MRSA screen positive Influenza swab negative Hemoglobin 10.0 hematocrit 34.0 white count 7950 on February 24 BUN 52 creatinine 2.97 on day of discharge. Potassium 4.2, bicarb 28.2 TSH 0.29, free T4 0.92 PFSH Medical History Acromegaly (Chronic) Acute on chronic kidney failure (Resolved) Adrenal insufficiency (Chronic) Ambulatory dysfunction (Chronic) Anemia (Chronic) Atrial flutter, paroxysmal (Chronic) Back pain (Chronic 06/21/13) CAD (coronary artery disease) (Chronic) Cardiopulmonary arrest with successful resuscitation (Resolved) Cholelithiasis (Chronic) Chronic anxiety (Chronic) Chronic bipolar disorder (Chronic) a. With history of psychosis. Chronic cholecystitis (Chronic) Chronic insomnia (Chronic) Chronic pain (Chronic) On both Methadone and Fentanyl as well as Ultram and Naproxen. CKD (chronic kidney disease) (Chronic) Complicated UTI (urinary tract infection) (Resolved) Diabetes mellitus (Chronic) Diabetic foot ulcer (Chronic) Diabetic ulcer of toe associated with diabetes mellitus due to underlying condition, with bone involvement without evidence of necrosis (Inactive) 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 (Resolved) Dyslipidemia (Chronic) Elevated troponin I level (Resolved) Endocarditis due to Staphylococcus (Resolved) Heme positive stool (Resolved) Hemorrhagic cystitis (Chronic) Hyperkalemia (Resolved) Hypertension (Chronic) Hypomagnesemia (Chronic) Hypothyroidism (Chronic) Impaired mobility and ADLs (Chronic) Inability to get out of bed (Chronic 06/21/13) Lactic acidosis (Resolved) MRSA bacteremia (Resolved) Obesity (Chronic) a. Obesity though he has had significant weight loss since last seen. Osteoarthritis of both knees (Chronic) Severe. a. [id number] bilateral knees. 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 2 diabetes mellitus (Resolved) Palliative care encounter (Chronic) DObbertin Pedal edema (Chronic) Poor self care (Chronic 06/21/13) Poorly controlled type 2 diabetes mellitus with circulatory disorder (Chronic) Pulmonary hypertension (Chronic) Rheumatoid arthritis (Chronic) Sepsis (Resolved) Septic arthritis of elbow, right (Inactive) Toxic metabolic encephalopathy (Resolved) Toxic metabolic encephalopathy (Resolved) Ulcerative colitis (Chronic) UTI (urinary tract infection) (Resolved) UTI (urinary tract infection) due to Enterococcus (Resolved) Surgical History Arthroplasty of knee (Resolved 03/18/12) irrigation and lavage right Fracture, Open [place] (Resolved[place] [place] DISTAL HUMERUS FRACTURE History of insertion of T-tube into biliary tract (Chronic) S/P colectomy (Chronic) Social History Smoking/Tobacco Use Status: Former Tobacco Use Alcohol Intake: former Drug use: Rarely Substance use type: marijuana Housing: half-way Do you feel safe at home: Yes Do you feel safe in your relationship?: Yes
--- NOTE | 2019-02-26 12:47 | NUR.NOTE ---
rNursing Note: RN calls reports to [facility] registered nurse who will be caring for patient whose name is Zee Le. Patient was placed in a wheelchair belonging to hospital. The number of said wheelchair was [id number].
--- NOTE | 2019-02-26 16:04 | CMDISCH_ITS ---
- If Service Date Differs Date of service: 02/26/19 Time of Service: 12:00 LACE Index Scoring Tool - Questions: Length of Stay (in days): 4 - 6 Acuity (Admit via E.D.?): Yes Comorbidities: Diabetes w/o Complication, Mild Liver/Renal Disease E.D. Visits: 10 - Answers: Total Score: 14 Risk of Readmission: High Risk Care Management Discharge Reason for Hospitalization: Altered mental status, fever, respiratory distress Discharge Plan: Brendan is returning to [facility] today via [facility] wheelchair van. CM contacted by the [facility] and reviewed plan to return to the facility. Brendan feels ready to return home to the [facility] today. Patient/Family Education Needs: Brendan states he is ready for discharge. Discharge education, limitations and follow up instructions sent to the [facility]. Services Needed at Discharge: Group Home Facility, Transportation
== END 2019-02-26 12:05 | disposition skilled nursing facility (03) | DRG 948 ==
LOC: ER 15:02 → ICU 16:07
PROVIDERS: Admitting Provider Internal Medicine; Emergency Provider Physician Assistant; PCP Family Medicine; Visit Provider Internal Medicine
DX: R41.82 Altered mental status, unspecified (principal); E27.40 Unspecified adrenocortical insufficiency; N17.9 Acute kidney failure, unspecified; I48.92 Unspecified atrial flutter; T42.6X5A Adverse effect of other antiepileptic and sedative-hypnotic drugs, initial encounter; R06.03 Acute respiratory distress; R82.81 Pyuria; R50.9 Fever, unspecified; N18.9 Chronic kidney disease, unspecified; E11.65 Type 2 diabetes mellitus with hyperglycemia; Z79.4 Long term (current) use of insulin; I12.9 Hypertensive chronic kidney disease with stage 1 through stage 4 chronic kidney disease, or unspecified chronic kidney disease; G89.29 Other chronic pain; Z79.01 Long term (current) use of anticoagulants; Z22.322 Carrier or suspected carrier of Methicillin resistant Staphylococcus aureus; E11.621 Type 2 diabetes mellitus with foot ulcer; L97.529 Non-pressure chronic ulcer of other part of left foot with unspecified severity; E03.9 Hypothyroidism, unspecified; Z87.440 Personal history of urinary (tract) infections; D64.9 Anemia, unspecified; F31.9 Bipolar disorder, unspecified; L89.159 Pressure ulcer of sacral region, unspecified stage
CPT/HCPCS: 36415; 51702; 80048; 80053; 82805; 85027; 87040; 87081; 87449; 93005; 94640; 94644; 96365; 96375; 99223; 99233; 99239; 99285; 36600; 71045; 81003; 81015; 83605; 83735; 83880; 84439; 84443; 84484; 85025; 87086; 93010; 94660; J1720; J1940; J2543; J2930; J3490; J7512; J7611; J7620

== ENCOUNTER 2019-02-26 19:56 | Emergency (ER) | payer MEDICARE, MEDICAID, SELFPAY ==
--- NOTE | 2019-02-26 20:02 | ED.GENADUL_ITS ---
Discharge Plan Disposition Patient Disposition: SNF (LEVEL 1) [facility] Condition: Good Discharge Details Chief Complaint: Laceration Clinical Impression: Laceration of lower leg, right Primary Care Provider: Lou Maldonado ED Provider: Jeferson [facility]john and New Rx's Prescriptions: Continued cyanocobalamin (vitamin B-12) 1,000 mcg Tablet 1,000 mcg PO DAILY RF: 0 ferrous sulfate 325 mg (65 mg iron) Tablet 325 mg PO BID Qty: 0 RF: 0 ascorbic acid (vitamin C) [Vitamin C] 250 mg Tablet 1 tab PO BID RF: 0 Centrum Complete 18-400 mg-mcg Tablet 1 tab PO DAILY RF: 0 acidophilus-pectin, citrus 25 million cell -100 mg Tablet 1 cap PO TID Qty: 0 RF: 0 Eliquis 5 mg Tablet 5 mg PO BID Qty: 60 RF: 0 Novolog Flexpen U-100 Insulin 100 unit/mL Insulin Pen See Rx Instructions .ROUTE .COMPLEX Qty: 15 RF: 0 pantoprazole 40 mg Tablet,Delayed Release (Dr/Ec) 40 mg PO DAILY Qty: 60 RF: 0 melatonin 3 mg Tablet Extended Release 6 mg PO HS Qty: 30 RF: 0 sodium bicarbonate 650 mg Tablet 650 mg PO TID Qty: 90 RF: 0 calcium carbonate-vitamin D3 [Calcium 500 + D] 500 mg(1,250mg) -400 unit Tablet 1 tab PO BID RF: 0 clonidine HCl [Catapres] 0.1 mg Tablet 0.1 mg PO TID Qty: 0 RF: 0 risperidone [Risperdal] 2 mg Tablet 2 mg PO DAILY RF: 0 acetaminophen [Tylenol] 325 mg tablet 1,000 mg PO TID RF: 0 gabapentin 100 mg capsule 300 mg PO TID RF: 0 terazosin 2 mg Capsule 4 mg PO BID Qty: 0 RF: 0 magnesium chloride [Mag 64] 64 mg Tablet,Delayed Release (Dr/Ec) 64 mg PO BID Qty: 0 RF: 0 venlafaxine [Effexor XR] 37.5 mg Capsule,Extended Release 24hr 112.5 mg PO DAILY RF: 0 Zyrtec 10 mg Capsule 10 mg PO DAILY RF: 0 prednisone 5 mg tablet 10 mg PO DAILY RF: 0 prednisone 20 mg Tablet 20 mg PO DAILY Qty: 1 RF: 0 Lantus Solostar U-100 Insulin 100 unit/mL (3 mL) Insulin Pen 65 units subcut BID Qty: 1 RF: 0 amlodipine 5 mg tablet 10 mg PO DAILY RF: 0 levothyroxine 25 mcg tablet 12.5 mcg PO DAILY@0600 RF: 0 Discharge Instructions Instructions: Laceration (ED) Additional Instructions: Leave this dressing on for 2 days. Begin dressing changes and wound care once a day after. Watch for signs of infection. Sutures out in 10 to 14 days. Return to ED for increasing pain, swelling, drainage, fever. Referrals: Lou Maldonado [Primary Care Provider] - Discharge Data Discharge Date/Time-TO BE ENTERED AT DEPARTURE: 02/26/19 21:20 Medical Decision Making Patient arrives with superficial laceration to the right negro. Continues to ooze likely because he is on Eliquis. Anesthetized with lidocaine with epinephrine which helped control bleeding. 3-0 nylon suture placed in interrupted fashion to loosely approximate edges. Some concern for difficulty with wound healing due to edema and thin skin from chronic prednisone use. Actually closed fairly well and not under a lot of tension. Xeroform dressing applied. Dressing may be removed in 1 to 2 days and wound care started. Tetanus updated. Patient instructed to keep legs elevated to keep the edema down. Discharged back to ECF. HPI General Mode of arrival: EMS . Date/Time Provider Initiated Documentation: 02/26/19 19:58 . Limitations to Documentation: no limitations . Information obtained by: patient, EMS and RN notes reviewed . HPI Narrative: Patient presents to ED from ECF with laceration to the right lower extremity negro. Patient reports injuring this on his walker. He did not even realize that he had sustained a laceration until he noticed blood on the floor. He is on Eliquis. Wound was bandaged and patient transported here for evaluation and closure. Related Data Home Medications Medication Instructions Recorded Confirmed cyanocobalamin (vitamin B-12) 1,000 mcg PO DAILY 12/23/17 02/26/19 ferrous sulfate 325 mg PO BID #0 tab 12/31/17 02/26/19 magnesium chloride [Mag 64] 64 mg PO BID #0 tab 02/10/18 02/26/19 terazosin 4 mg PO BID #0 cap 02/10/18 02/26/19 Centrum Complete 1 tab PO DAILY 03/01/18 02/26/19 ascorbic acid (vitamin C) [Vitamin 1 tab PO BID 03/01/18 02/26/19 C] acidophilus-pectin, citrus 1 cap PO TID #0 tab 03/24/18 02/26/19 Eliquis 5 mg PO BID #60 tab 06/19/18 02/26/19 Novolog Flexpen U-100 Insulin See Rx Instructions .ROUTE 06/19/18 02/26/19 .COMPLEX #15 ml melatonin 6 mg PO HS #30 tab 06/19/18 02/26/19 pantoprazole 40 mg PO DAILY #60 tab 06/19/18 02/26/19 sodium bicarbonate 650 mg PO TID #90 tab 06/19/18 02/26/19 calcium carbonate-vitamin D3 1 tab PO BID 07/09/18 02/26/19 [Calcium 500 + D] clonidine HCl [Catapres] 0.1 mg PO TID #0 tab 07/23/18 02/26/19 venlafaxine [Effexor XR] 112.5 mg PO DAILY 10/23/18 02/26/19 acetaminophen [Tylenol] 1,000 mg PO TID 01/08/19 02/26/19 gabapentin 300 mg PO TID 01/08/19 02/26/19 risperidone [Risperdal] 2 mg PO DAILY 01/08/19 02/26/19 Zyrtec 10 mg PO DAILY 02/23/19 02/26/19 prednisone 10 mg PO DAILY 02/23/19 02/26/19 Lantus Solostar U-100 Insulin 65 units SUBCUT BID #1 ml 02/26/19 02/26/19 amlodipine 10 mg PO DAILY 02/26/19 02/26/19 levothyroxine 12.5 mcg PO DAILY@0600 02/26/19 02/26/19 prednisone 20 mg PO DAILY #1 tab 02/26/19 02/26/19 Previous Rx's Medication Instructions Recorded ferrous sulfate 325 mg PO BID #0 tab 12/31/17 magnesium chloride [Mag 64] 64 mg PO BID #0 tab 02/10/18 terazosin 4 mg PO BID #0 cap 02/10/18 acidophilus-pectin, citrus 1 cap PO TID #0 tab 03/24/18 Eliquis 5 mg PO BID #60 tab 06/19/18 Novolog Flexpen U-100 Insulin See Rx Instructions .ROUTE 06/19/18 .COMPLEX #15 ml melatonin 6 mg PO HS #30 tab 06/19/18 pantoprazole 40 mg PO DAILY #60 tab 06/19/18 sodium bicarbonate 650 mg PO TID #90 tab 06/19/18 clonidine HCl [Catapres] 0.1 mg PO TID #0 tab 07/23/18 Lantus Solostar U-100 Insulin 65 units SUBCUT BID #1 ml 02/26/19 prednisone 20 mg PO DAILY #1 tab 02/26/19 Allergies Allergy/AdvReac Type Severity Reaction Status Date / Time No Known Allergies Allergy Verified 02/23/19 13:19 General YVES: 2 Review of Systems Cardiovascular Cardiovascular: Reports pedal edema and Reports leg edema Integumentary/Breasts Skin/Breast: Reports wounds [facility] Medical History Acromegaly (Chronic) Acute on chronic kidney failure (Resolved) Adrenal insufficiency (Chronic) Ambulatory dysfunction (Chronic) Anemia (Chronic) Atrial flutter, paroxysmal (Chronic) Back pain (Chronic 06/21/13) CAD (coronary artery disease) (Chronic) Cardiopulmonary arrest with successful resuscitation (Resolved) Cholelithiasis (Chronic) Chronic anxiety (Chronic) Chronic bipolar disorder (Chronic) a. With history of psychosis. Chronic cholecystitis (Chronic) Chronic insomnia (Chronic) Chronic pain (Chronic) On both Methadone and Fentanyl as well as Ultram and Naproxen. CKD (chronic kidney disease) (Chronic) Complicated UTI (urinary tract infection) (Resolved) Diabetes mellitus (Chronic) Diabetic foot ulcer (Chronic) Diabetic ulcer of toe associated with diabetes mellitus due to underlying condition, with bone involvement without evidence of necrosis (Inactive) 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 (Resolved) Dyslipidemia (Chronic) Elevated troponin I level (Resolved) Endocarditis due to Staphylococcus (Resolved) Heme positive stool (Resolved) Hemorrhagic cystitis (Chronic) Hyperkalemia (Resolved) Hypertension (Chronic) Hypomagnesemia (Chronic) Hypothyroidism (Chronic) Impaired mobility and ADLs (Chronic) Inability to get out of bed (Chronic 06/21/13) Lactic acidosis (Resolved) MRSA bacteremia (Resolved) Obesity (Chronic) a. Obesity though he has had significant weight loss since last seen. Osteoarthritis of both knees (Chronic) Severe. a. [id number] bilateral knees. 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 2 diabetes mellitus (Resolved) Palliative care encounter (Chronic) DObbertin Pedal edema (Chronic) Poor self care (Chronic 06/21/13) Poorly controlled type 2 diabetes mellitus with circulatory disorder (Chronic) Pulmonary hypertension (Chronic) Rheumatoid arthritis (Chronic) Sepsis (Resolved) Septic arthritis of elbow, right (Inactive) Toxic metabolic encephalopathy (Resolved) Toxic metabolic encephalopathy (Resolved) Ulcerative colitis (Chronic) UTI (urinary tract infection) (Resolved) UTI (urinary tract infection) due to Enterococcus (Resolved) Surgical History Arthroplasty of knee (Resolved 03/18/12) irrigation and lavage right Fracture, Open Treatment (Resolved) 06/06/17-[facility] [place] S/P ORIF RIGHT DISTAL HUMERUS FRACTURE History of insertion of T-tube into biliary tract (Chronic) S/P colectomy (Chronic) Social History Smoking/Tobacco Use Status: Former Tobacco Use Alcohol Intake: former Drug use: Rarely Substance use type: marijuana Housing: fpc Do you feel safe at home: Yes Do you feel safe in your relationship?: Yes Exam Const General: no acute distress Nutritional Appearance: obese Orientation: alert and oriented x3 HENMT Head: normocephalic and atraumatic Teeth and gingiva: poor dentition Resp Effort & Inspection: normal respiratory effort Skin Trauma: laceration (Right anterior negro approximately 6 to 7 cm in length, superficial) Extrem General: edema (Lower extremities) Laterality: bilateral and other (Some venous stasis changes of lower extremities) Procedures Laceration Laceration 1: Site: lower extremity Side (If applicable): right Size (cm): 7 Description: linear Depth: simple, single layer Local Anesthetic: Lidocaine 1% and with Epi Amount of anesthesia used (mL): 5 Pre-repair: wound explored, irrigated extensively and deep structures intact Skin layer closed with: nylon Size (cm): 3-0 Number of sutures: 6 Technique: simple, interrupted
[2019-02-26 20:05] VITALS: BP 165/74; PULSE 75; RESP 18; O2SAT 97
[2019-02-26] MEDS: Tetanus & Diphtheria Tox,ADULT 0.5 ML VIAL IM (21:17)
== END 2019-02-26 21:20 | disposition skilled nursing facility (03) ==
PROVIDERS: Emergency Provider Emergency Medicine; PCP Family Medicine
DX: S81.811A Laceration without foreign body, right lower leg, initial encounter (principal); W26.8XXA Contact with other sharp object(s), not elsewhere classified, initial encounter; Z79.01 Long term (current) use of anticoagulants; N18.9 Chronic kidney disease, unspecified; I12.9 Hypertensive chronic kidney disease with stage 1 through stage 4 chronic kidney disease, or unspecified chronic kidney disease; E11.9 Type 2 diabetes mellitus without complications; Z79.4 Long term (current) use of insulin
CPT/HCPCS: 12002; 90471

== ENCOUNTER 2019-03-01 09:27 | Outpatient (REF) | payer MEDICARE, MEDICAID, SELFPAY ==
[2019-03-01 10:41] LABS: Abs Immature Grans 0.06 k/cumm (0.0-0.09); Absolute Basophil Count 0.02 k/cumm (0.0-0.2); Absolute Lymphocyte Count 0.63 k/cumm (1.2-3.4); Absolute Monocyte Count 0.89 k/cumm (0.11-0.7); Absolute Neutrophil Count 8.65 k/cumm (1.2-6.7); Basophils % 0.2; Eosinophils % 4.7; HCT 35.3 % (40.0-50.0); HGB 9.8 g/dL (13.5-17.5); Immature Grans % 0.6 %; Lymphocytes % 5.9; Mean Corp. HGB Concentration 27.8 g/dL (32.0-36.0); Mean Corpuscular Hemoglobin 22.2 pg (27.0-33.0); Mean Corpuscular Volume 79.9 fL (80-95); Mean Platelet Volume 10.2 fL (8.0-11.0); Monocytes % 8.3; Neutrophils % 80.3; Platelet Count 287 x1000/uL (130-400); RBC 4.42 m/cumm (4.50-6.00); RBC Distribution Width 16.3 % (11.8-14.1); White Blood Cell Count 10.75 k/cumm (4.4-10.8)
[2019-03-01 10:49] LABS: Iron 18 ug/dL (65-175); Total Iron Binding Capacity 268 ug/dL (250-450); Transferrin Sat 7 % (20-55)
[2019-03-01 11:02] LABS: Anion Gap 7.8 mmol/L (3-11); BUN 36 mg/dL (7-18); CO2 29.2 mmol/L (21.0-32.0); CREATININE 1.58 mg/dL (0.70-1.30); Calcium 8.4 mg/dL (8.5-10.1); Chloride 112 mmol/L (98-107); Estimated GFR 45.11 (mL/min/1.73m2); Ferritin 63 ng/mL (26-388); Glucose 190 mg/dL (74-106); Potassium 4.3 mmol/L (3.5-5.1); Sodium 149 mmol/L (136-145)
[2019-03-01 11:33] LABS: Anisocytosis 1+; Diff Comment RBC Morph Reviewed; Hypochromasia 1+; Microcytosis 2+; Ovalocytes 2+; Polychromasia Present
[2019-03-01 11:34] LABS: Basophilic Stippling Present; Poikilocytes 2+
[2019-03-02 10:24] LABS: Transferrin 191 mg/dL (201-352)
== END 2019-03-01 09:47 ==
LOC: LBN 09:27
PROVIDERS: PCP Family Medicine; Visit Provider Family Medicine
DX: D64.9 Anemia, unspecified (principal); E11.9 Type 2 diabetes mellitus without complications; N18.9 Chronic kidney disease, unspecified
CPT/HCPCS: 80048; 82728; 83540; 83550; 84466; 85025

== ENCOUNTER 2019-03-01 22:02 | Emergency (ER) | payer MEDICARE, MEDICAID, SELFPAY ==
--- NOTE | 2019-03-01 22:01 | ED.GENADUL_ITS ---
Discharge Plan Disposition Patient Disposition: ICF (LEVEL 2) [facility] Condition: Stable Discharge Details Chief Complaint: RespSymp Clinical Impression: Pleural effusion Primary Care Provider: Lou Maldonado ED Provider: Hemanth Olivia Toppenish Meds and New Rx's Prescriptions: New levofloxacin 750 mg tablet 750 mg PO DAILY Qty: 5 RF: 0 Continued cyanocobalamin (vitamin B-12) 1,000 mcg Tablet 1,000 mcg PO DAILY RF: 0 ferrous sulfate 325 mg (65 mg iron) Tablet 325 mg PO BID Qty: 0 RF: 0 ascorbic acid (vitamin C) [Vitamin C] 250 mg Tablet 1 tab PO BID RF: 0 Centrum Complete 18-400 mg-mcg Tablet 1 tab PO DAILY RF: 0 acidophilus-pectin, citrus 25 million cell -100 mg Tablet 1 cap PO TID Qty: 0 RF: 0 Eliquis 5 mg Tablet 5 mg PO BID Qty: 60 RF: 0 Novolog Flexpen U-100 Insulin 100 unit/mL Insulin Pen See Rx Instructions .ROUTE .COMPLEX Qty: 15 RF: 0 pantoprazole 40 mg Tablet,Delayed Release (Dr/Ec) 40 mg PO DAILY Qty: 60 RF: 0 melatonin 3 mg Tablet Extended Release 6 mg PO HS Qty: 30 RF: 0 calcium carbonate-vitamin D3 [Calcium 500 + D] 500 mg(1,250mg) -400 unit Tablet 1 tab PO BID RF: 0 clonidine HCl [Catapres] 0.1 mg Tablet 0.1 mg PO TID Qty: 0 RF: 0 risperidone [Risperdal] 2 mg Tablet 2 mg PO DAILY RF: 0 acetaminophen [Tylenol] 325 mg tablet 1,000 mg PO TID RF: 0 gabapentin 100 mg capsule 300 mg PO TID RF: 0 magnesium chloride [Mag 64] 64 mg Tablet,Delayed Release (Dr/Ec) 64 mg PO BID Qty: 0 RF: 0 Zyrtec 10 mg Capsule 10 mg PO DAILY RF: 0 prednisone 5 mg tablet 10 mg PO DAILY RF: 0 prednisone 20 mg Tablet 20 mg PO DAILY Qty: 1 RF: 0 Lantus Solostar U-100 Insulin 100 unit/mL (3 mL) Insulin Pen 65 units subcut BID Qty: 1 RF: 0 amlodipine 5 mg tablet 10 mg PO DAILY RF: 0 levothyroxine 25 mcg tablet 12.5 mcg PO DAILY@0600 RF: 0 No Action sodium bicarbonate 650 mg Tablet 650 mg PO TID Qty: 90 RF: 0 terazosin 2 mg Capsule 4 mg PO BID Qty: 0 RF: 0 venlafaxine [Effexor XR] 37.5 mg Capsule,Extended Release 24hr 112.5 mg PO DAILY RF: 0 Discharge Instructions Instructions: Pleural Effusion (ED) Additional Instructions: continue taking lasix 40mg daily and follow up with your primary care provider within 1 week if you feel more ill, have worsening shortness of breath or fevers return to the emergency department Medical Decision Making <Dell Romo DO - Last Filed: 03/01/19 22:44> Patient is a 58-year-old male with a history of diabetes, hypertension, hyperlipidemia, CHF, atrial fibrillation/flutter on Eliquis, adrenal insufficiency, bipolar, hypothyroidism who presents from the [facility] for evaluation of shortness of breath. He admits to shortness of breath for the last week and a half. He admits to cough but no productivity. He denies chest pain. He denies any other complaints. Physical exam demonstrates mild wheeze in the right upper lung field, minimal crackles in bases. No fever, no evidence of septic appearance. He is on Eliquis, no calf tenderness. Right negro demonstrates excellent healing from the suturing he received recently. Physical exam shows no evidence of fluid overload with no pitting edema. Signs and symptoms appear consistent with mild reactive airway disease. Will give duo nebs, steroids, chest x-ray and reassess. ACS unlikely, however we will perform a cardiac work-up in the meantime. EKG 22: 28 Rate 66, sinus rhythm, intervals normal, no significant ST elevations or depressions, no new T wave inversions. No evidence of STEMI. <Hemanth Olivia MD - Last Filed: 03/02/19 00:36> pt's o2 saturation before nebs was 95% on room air and now 100% on room air and has no complaints. Has effusions on xray, otherwise no significant acute lab ab normalities. Given his increased cough will cove for possible CAP and have them continue with increased lasix of 40mg daily up from 20mg [facility] Return precautions given Imaging Data Radiologic Study: Attestation: I personally reviewed and interpreted this imaging study as follows: Imaging: X-Ray Radiologist's impression: IMPRESSION: 1. Pulmonary vascular congestion. 2. Bilateral pleural effusions. 3. Calcified mediastinal and hilar lymph nodes. Lab Data Lab results reviewed: Yes I reviewed the patient's lab results. HPI <Dell Hough DO Demetrius - Last Filed: 03/01/19 22:44> General Date/Time Provider Initiated Documentation: 03/01/19 22:06 . HPI Narrative: Patient is a 58-year-old male with a history of diabetes, hypertension, hyperlipidemia, CHF, atrial fibrillation/flutter on Eliquis, adrenal insufficiency, bipolar, hypothyroidism who presents from the [facility] who presents today for evaluation of shortness of breath. Patient states that for the last week and a half he has had the symptoms. He has a mild cough that is nonproductive. He denies any chest pain chest heaviness chest tightness. He has gotten additional Lasix tonight, and he has been making urine. He is on Eliquis. He denies any fever, chills, arm neck or shoulder pain. He denies any other complaints at this time. No other modifying factors. While at the [facility] he was evaluated by the staff there, and he demonstrated normal vital signs with the patient requested evaluation in the ED. Per EMS vital signs were stable. No respiratory distress. He was given a breathing treatment on the way and the patient does admit to improvement of his with this. Related Data Home Medications Medication Instructions Recorded Confirmed cyanocobalamin (vitamin B-12) 1,000 mcg PO DAILY 12/23/17 02/26/19 ferrous sulfate 325 mg PO BID #0 tab 12/31/17 02/26/19 magnesium chloride [Mag 64] 64 mg PO BID #0 tab 02/10/18 02/26/19 terazosin 4 mg PO BID #0 cap 02/10/18 02/26/19 Centrum Complete 1 tab PO DAILY 03/01/18 02/26/19 ascorbic acid (vitamin C) [Vitamin 1 tab PO BID 03/01/18 02/26/19 C] acidophilus-pectin, citrus 1 cap PO TID #0 tab 03/24/18 02/26/19 Eliquis 5 mg PO BID #60 tab 06/19/18 02/26/19 Novolog Flexpen U-100 Insulin See Rx Instructions .ROUTE 06/19/18 02/26/19 .COMPLEX #15 ml melatonin 6 mg PO HS #30 tab 06/19/18 02/26/19 pantoprazole 40 mg PO DAILY #60 tab 06/19/18 02/26/19 sodium bicarbonate 650 mg PO TID #90 tab 06/19/18 02/26/19 calcium carbonate-vitamin D3 1 tab PO BID 07/09/18 02/26/19 [Calcium 500 + D] clonidine HCl [Catapres] 0.1 mg PO TID #0 tab 07/23/18 02/26/19 venlafaxine [Effexor XR] 112.5 mg PO DAILY 10/23/18 02/26/19 acetaminophen [Tylenol] 1,000 mg PO TID 01/08/19 02/26/19 gabapentin 300 mg PO TID 01/08/19 02/26/19 risperidone [Risperdal] 2 mg PO DAILY 01/08/19 02/26/19 Zyrtec 10 mg PO DAILY 02/23/19 02/26/19 prednisone 10 mg PO DAILY 02/23/19 02/26/19 Lantus Solostar U-100 Insulin 65 units SUBCUT BID #1 ml 02/26/19 02/26/19 amlodipine 10 mg PO DAILY 02/26/19 02/26/19 levothyroxine 12.5 mcg PO DAILY@0600 02/26/19 02/26/19 prednisone 20 mg PO DAILY #1 tab 02/26/19 02/26/19 levofloxacin 750 mg PO DAILY #5 tab 03/02/19 Previous Rx's Medication Instructions Recorded ferrous sulfate 325 mg PO BID #0 tab 12/31/17 magnesium chloride [Mag 64] 64 mg PO BID #0 tab 02/10/18 terazosin 4 mg PO BID #0 cap 02/10/18 acidophilus-pectin, citrus 1 cap PO TID #0 tab 03/24/18 Eliquis 5 mg PO BID #60 tab 06/19/18 Novolog Flexpen U-100 Insulin See Rx Instructions .ROUTE 06/19/18 .COMPLEX #15 ml melatonin 6 mg PO HS #30 tab 06/19/18 pantoprazole 40 mg PO DAILY #60 tab 06/19/18 sodium bicarbonate 650 mg PO TID #90 tab 06/19/18 clonidine HCl [Catapres] 0.1 mg PO TID #0 tab 07/23/18 Lantus Solostar U-100 Insulin 65 units SUBCUT BID #1 ml 02/26/19 prednisone 20 mg PO DAILY #1 tab 02/26/19 levofloxacin 750 mg PO DAILY #5 tab 03/02/19 Allergies Allergy/AdvReac Type Severity Reaction Status Date / Time No Known Allergies Allergy Verified 03/02/19 00:34 General YVES: 4 Review of Systems <Dell Romo - Last Filed: 03/01/19 22:44> All systems reviewed & are unremarkable except as noted in HPI and below PFSH <Dell Vazquezguillermo - Last Filed: 03/01/19 22:44> Social History Smoking/Tobacco Use Status: Former Tobacco Use Alcohol Intake: former Drug use: Rarely Substance use type: marijuana Housing: skilled nursing Do you feel safe at home: Yes Do you feel safe in your relationship?: Yes Exam <Dell Romo - Last Filed: 03/01/19 22:44> Narrative Exam Narrative: 1.Const: Well-nourished, Well-developed, appearing stated age 2.Eyes: PERRL, no conjunctival injection, and symmetrical lids. 3.ENT: Atraumatic external nose and ears. Moist MM. Neck: Symmetric, trachea midline, No thyromegaly. 4.CVS: +S1/S2, No murmurs or gallops. Peripheral pulses 2+ and equal in all extremities. Brisk capillary refill in all extremities. 5.RESP: Unlabored respiratory effort. Minimal crackles in the bases, minimal w heeze in the right upper lung field. No rhonchi. 6.GI: Soft, Nontender/Nondistended, No hepatosplenomegaly. No guarding or rebound. 7.MSK: Normocephalic/Atraumatic, Extremities w/o deformity or ttp No cyanosis or clubbing, Normal movement of all extremities. No calf tenderness. 8.Skin: Warm, Dry. No rashes or lesions. Laceration site in the right negro is clean dry and intact with well-healing skin. No redness or signs of infection. 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 Sensation grossly intact, no focal neurologic deficits. 10.Psych: (AAO) x3. Appropriate mood and affect Sign Out <Dell Romo DO - Last Filed: 03/01/19 22:44> Sign Out Data: Sign Out Comment: Pending laboratory work-up and imaging for reassessment. Suspect COPD/reactive airway disease. Last updated by Dell Romo DO at 03/01/19 23:00
[2019-03-01 22:04] VITALS: BP 156/69; PULSE 72; RESP 18; TEMP 37.3; O2SAT 95
[2019-03-01 22:28] VITALS: RESP 4; RESP 8; O2SAT 95
[2019-03-01] MEDS: Albuterol/Ipratropium 3 ML UPD VIAL 6 ML UPD (22:28)
[2019-03-01] MEDS: methylPREDNISolone SUCC 125 MG VIAL IVP (22:45)
[2019-03-01 22:54] LABS: BE (Venous) 3.5 mmol/L (-3-3); HCO3 (Venous) 30 mmol/L (22-28); O2 Sat (Venous) 97 % (70-80); TCO2 (Venous) 29 mmol/L (22-29); pCO2 (Venous) 59 mm/Hg (34-47); pH (Venous) 7.31 (7.32-7.43); pO2 (Venous) 80 mm/Hg (28-44)
[2019-03-01 22:55] LABS: Abs Immature Grans 0.09 k/cumm (0.0-0.09); Absolute Basophil Count 0.02 k/cumm (0.0-0.2); Absolute Eosinophil Count 0.51 k/cumm (0.0-0.7); Absolute Lymphocyte Count 0.94 k/cumm (1.2-3.4); Absolute Monocyte Count 0.57 k/cumm (0.11-0.7); Absolute Neutrophil Count 9.34 k/cumm (1.2-6.7); Basophils % 0.2; Eosinophils % 4.4; HCT 33.3 % (40.0-50.0); HGB 9.5 g/dL (13.5-17.5); Immature Grans % 0.8 %; Lymphocytes % 8.2; Mean Corp. HGB Concentration 28.5 g/dL (32.0-36.0); Mean Corpuscular Hemoglobin 22.4 pg (27.0-33.0); Mean Corpuscular Volume 78.4 fL (80-95); Mean Platelet Volume 8.9 fL (8.0-11.0); Neutrophils % 81.4; Platelet Count 300 x1000/uL (130-400); RBC 4.25 m/cumm (4.50-6.00); White Blood Cell Count 11.48 k/cumm (4.4-10.8)
[2019-03-01 22:58] VITALS: RESP 1; RESP 18; RESP 8; O2SAT 100
[2019-03-01 23:13] LABS: ALT 20 U/L (16-63); AST 10 U/L (15-37); Albumin 2.7 g/dL (3.4-5.0); Alkaline Phosphatase 114 U/L (46-116); Anion Gap 5.6 mmol/L (3-11); BUN 36 mg/dL (7-18); Bilirubin, Total 0.3 mg/dL (0.2-1.0); CO2 31.4 mmol/L (21.0-32.0); CREATININE 1.76 mg/dL (0.70-1.30); Calcium 8.2 mg/dL (8.5-10.1); Chloride 110 mmol/L (98-107); Estimated GFR 39.83 (mL/min/1.73m2); Glucose 158 mg/dL (74-106); Sodium 147 mmol/L (136-145); Total Protein 6.4 g/dL (6.4-8.2); Troponin I < 0.05 ng/Ml (<0.06)
[2019-03-01 23:17] LABS: NT-proBNP 574 pg/mL (<300)
--- NOTE | 2019-03-01 23:30 | DI.RAD_ITS ---
EXAM: XR CHEST 2V PA LATERAL INDICATION: SOB, cough. COMPARISON: No exams were available for comparison TECHNIQUE: 2D digital imaging was performed. FINDINGS: The exam is limited by limited patient cooperation and immobility. The heart is enlarged. There are small bilateral pleural effusions. There is prominence of the pulmonary vasculature and mildly incr eased interstitial markings consistent with mild CHF. IMPRESSION: Cardiomegaly and mild CHF.
--- NOTE | 2019-03-02 00:21 | DI.VRAD_ITS ---
PROCEDURE INFORMATION: Exam: XR Chest, 2 Views Exam date and time: 03/01/2019 11:36 PM Age: 58 years old Clinical indication: Cough and shortness of breath; Patient HX: Cough, SOB TECHNIQUE: Imaging protocol: XR of the chest Views: 2 views. COMPARISON: CR XR PORTABLE CHEST AP 02/23/2019 12:04 PM FINDINGS: Lungs: Interstitial prominence. No dense parenchymal consolidation. Pleural space: Bilateral pleural effusions. Heart/Mediastinum: Calcified mediastinal and hilar lymph nodes. Cardiomegaly. Bones/joints: Unremarkable. IMPRESSION: 1. Pulmonary vascular congestion. 2. Bilateral pleural effusions. 3. Calcified mediastinal and hilar lymph nodes. Dictated and Authenticated by: Joni Lang MD. Ordering:ZURDO Sharpe MD
[2019-03-02] MEDS: levoFLOXacin 500 MG, levoFLOXacin 250 MG 750 MG PO (00:34)
[2019-03-02 00:45] VITALS: BP 156/69; PULSE 72; RESP 18; TEMP 37.3; O2SAT 100
== END 2019-03-02 00:55 | disposition intermediate care facility (04) ==
PROVIDERS: Student in an Organized Health Care Education/Training Program; Emergency Provider Emergency Medicine; PCP Family Medicine
DX: J90 Pleural effusion, not elsewhere classified (principal); R06.02 Shortness of breath; I10 Essential (primary) hypertension; E11.9 Type 2 diabetes mellitus without complications; Z79.4 Long term (current) use of insulin; Z79.01 Long term (current) use of anticoagulants; I48.91 Unspecified atrial fibrillation
CPT/HCPCS: 36415; 80053; 82805; 93005; 94640; 96374; 99285; 71046; 83880; 84484; 85025; 93010; J2930; J7620

== ENCOUNTER 2019-03-08 10:28 | Outpatient (REF) | payer MEDICARE, MEDICAID, SELFPAY ==
[2019-03-08 11:06] LABS: ALT 16 U/L (16-63); AST 9 U/L (15-37); Albumin 2.8 g/dL (3.4-5.0); Alkaline Phosphatase 116 U/L (46-116); Anion Gap 6.9 mmol/L (3-11); BUN 37 mg/dL (7-18); Bilirubin, Total 0.3 mg/dL (0.2-1.0); CO2 31.1 mmol/L (21.0-32.0); CREATININE 1.94 mg/dL (0.70-1.30); Calcium 8.5 mg/dL (8.5-10.1); Chloride 111 mmol/L (98-107); Glucose 134 mg/dL (74-106); Sodium 149 mmol/L (136-145)
== END 2019-03-08 10:48 ==
LOC: LBN 10:28
PROVIDERS: PCP Family Medicine; Visit Provider Nurse Practitioner Gerontology
DX: E11.40 Type 2 diabetes mellitus with diabetic neuropathy, unspecified (principal); N18.9 Chronic kidney disease, unspecified; I10 Essential (primary) hypertension
CPT/HCPCS: 80053

== ENCOUNTER 2019-03-09 07:52 | Outpatient (REF) | payer MEDICARE, MEDICAID, SELFPAY ==
[2019-03-09 08:37] LABS: Anion Gap 3.6 mmol/L (3-11); BUN 37 mg/dL (7-18); CO2 32.4 mmol/L (21.0-32.0); CREATININE 1.89 mg/dL (0.70-1.30); Calcium 8.4 mg/dL (8.5-10.1); Chloride 113 mmol/L (98-107); Estimated GFR 36.69 (mL/min/1.73m2); Glucose 158 mg/dL (74-106); Potassium 4.2 mmol/L (3.5-5.1); Sodium 149 mmol/L (136-145)
== END 2019-03-09 08:12 ==
LOC: LBN 07:52
PROVIDERS: PCP Family Medicine; Visit Provider Nurse Practitioner Gerontology
DX: I10 Essential (primary) hypertension (principal)
CPT/HCPCS: 80048

== ENCOUNTER 2019-03-09 08:27 | Emergency (ER) | payer MEDICARE, MEDICAID, SELFPAY ==
[2019-03-09] VITALS (54 sets, daily range): BP systolic 121–144; BP diastolic 57–119; PULSE 56–83; RESP 1–29; TEMP 36.4–37.1; O2SAT 87–100
--- NOTE | 2019-03-09 08:35 | ED.GENADUL_ITS ---
Discharge Plan Disposition Patient Disposition: HOME Condition: Stable Discharge Details Chief Complaint: GenMedical Clinical Impression: UTI (urinary tract infection), Acute on chronic clinical systolic heart failure, Hypoxia Primary Care Provider: Lou Maldonado ED Provider: Reny Trejo Home Meds and New Rx's Prescriptions: New cephalexin [Keflex] 500 mg capsule 500 mg PO BID Qty: 7 RF: 0 Continued cyanocobalamin (vitamin B-12) 1,000 mcg Tablet 1,000 mcg PO DAILY RF: 0 ferrous sulfate 325 mg (65 mg iron) Tablet 325 mg PO BID Qty: 0 RF: 0 ascorbic acid (vitamin C) [Vitamin C] 250 mg Tablet 1 tab PO BID RF: 0 Centrum Complete 18-400 mg-mcg Tablet 1 tab PO DAILY RF: 0 acidophilus-pectin, citrus 25 million cell -100 mg Tablet 1 cap PO TID Qty: 0 RF: 0 Eliquis 5 mg Tablet 5 mg PO BID Qty: 60 RF: 0 Novolog Flexpen U-100 Insulin 100 unit/mL Insulin Pen See Rx Instructions .ROUTE .COMPLEX Qty: 15 RF: 0 pantoprazole 40 mg Tablet,Delayed Release (Dr/Ec) 40 mg PO DAILY Qty: 60 RF: 0 melatonin 3 mg Tablet Extended Release 6 mg PO HS Qty: 30 RF: 0 sodium bicarbonate 650 mg Tablet 650 mg PO TID Qty: 90 RF: 0 calcium carbonate-vitamin D3 [Calcium 500 + D] 500 mg(1,250mg) -400 unit Tablet 1 tab PO BID RF: 0 clonidine HCl [Catapres] 0.1 mg Tablet 0.1 mg PO TID Qty: 0 RF: 0 risperidone [Risperdal] 2 mg Tablet 2 mg PO DAILY RF: 0 acetaminophen [Tylenol] 325 mg tablet 1,000 mg PO TID RF: 0 gabapentin 100 mg capsule 300 mg PO TID RF: 0 levofloxacin 750 mg tablet 750 mg PO DAILY Qty: 5 RF: 0 terazosin 2 mg Capsule 4 mg PO BID Qty: 0 RF: 0 magnesium chloride [Mag 64] 64 mg Tablet,Delayed Release (Dr/Ec) 64 mg PO BID Qty: 0 RF: 0 venlafaxine [Effexor XR] 37.5 mg Capsule,Extended Release 24hr 112.5 mg PO DAILY RF: 0 Zyrtec 10 mg Capsule 10 mg PO DAILY RF: 0 prednisone 20 mg Tablet 20 mg PO DAILY Qty: 1 RF: 0 Lantus Solostar U-100 Insulin 100 unit/mL (3 mL) Insulin Pen 65 units subcut BID Qty: 1 RF: 0 amlodipine 5 mg tablet 10 mg PO DAILY RF: 0 levothyroxine 25 mcg tablet 12.5 mcg PO DAILY@0600 RF: 0 furosemide 20 mg Tablet 20 mg DAILY RF: 0 Discharge Instructions Instructions: Heart Failure (ED), Urinary Tract Infection in Men (ED) Additional Instructions: Use 2 L nasal cannula as needed to keep oxygen saturation above 92%. Take the antibiotics until finished. Follow-up with your primary care doctor within the next few days. Return to the emergency department with any worsening or new concerning symptoms. Discharge Data Discharge Date/Time-TO BE ENTERED AT DEPARTURE: 03/09/19 14:10 Discharge Physician: Reny Trejo Medical Decision Making 0845 -- 58-year-old male with a history of obesity, diabetes, coronary artery disease, anxiety and depression presents from the [facility] for increased confusion and hypoxia in the 70s on room air this morning. Patient arrived to the ED alert and oriented x3 without acute complaints. O2 saturation mid 90s on room air and increased to 99% on 2 L. I have seen ON multiple times and he appears at his baseline. He is moving all extremities but slowly and with muscle strength 4/5 which is his baseline. His answers are generally slowed which also is his baseline. He demonstrates no acute focal deficits. He has diminished breath sounds expiratory wheezing throughout. Respiratory evaluated bedside and are well familiar with patient and states this is also his baseline. Will give a DuoNeb. This is the patient's fourth visit in the past 2 weeks to the ED. He was admitted here 2 weeks ago for acute on chronic CHF and UTI. He was last seen here 8 days ago for pleural effusion and treated with Levaquin and increase his Lasix. We will check screening labs, chest x-ray, urinalysis and give small bolus IV fluids. 1130 --labs and imaging reviewed. White blood cell count 12. Hemoglobin 10 and sodium 148 which are close to his baseline. Troponin negative. BNP 466. Lipase normal. Urinalysis notes greater than 50 WBCs and moderate leukocyte esterase. Chest x-ray notes findings consistent with CHF. As patient is afebrile, normal lactate, has no report of cough or complaint of shortness of breath, do not suspect pneumonia. Patient has had similar appearing urinalyses for the past several months. Most recent positive urine culture was in December 2018 with Proteus Mirabelis, otherwise most urine cultures have been negative. That urine culture was sensitive to cephalosporins but not to fluoroquinolones or Bactrim. Will give a dose of Keflex here. Patient was able to eat a meal here. Oxygen saturation 95 to 97% on room air. Sleeping at times he decreases to the 70s, he has a history of obstructive sleep apnea but often refuses CPAP. Okay to discharge back to the [facility]. Order form completed to place nasal cannula as needed and to increase his Lasix from 20 mg once daily to 40 mg once daily over the next 2 days. Prescription for Keflex given. Advised to follow up with the primary care doctor for re-evaluation. Usual and customary return precautions given prior to discharge. Medical Records Medical records reviewed: Yes I reviewed the patient's medical records. Imaging Data Radiologic Study: Radiologist's impression: XR CHEST 2V PA LATERAL INDICATION: sob, hypoxia, r/o pneumonia. COMPARISON: XR CHEST 2V PA LATERAL from 03/01/2019 TECHNIQUE: 2D digital imaging was performed. FINDINGS: Heart size is at the upper limits of normal. There is prominence of the pulmonary vasculature. There is prominence of the interstitial markings bilaterally. There are small bilateral pleural effusions. IMPRESSION: Findings suspicious for congestive heart failure. Lab Data Lab results reviewed: Yes I reviewed the patient's lab results. Labs: 03/09/19 09:13 Urine - Reflex from Ua Urine Culture - Pending 03/09/19 08:50 Nasopharynx Influenza Types A,B Antigen - Final Laboratory Tests Range/Units 03/09/19 03/09/19 03/09/19 08:50 08:50 08:50 WBC (4.4-10.8) k/cumm 12.08 H RBC (4.50-6.00) m/cumm 4.58 Hgb (13.5-17.5) g/dL 10.1 L Hct (40.0-50.0) % 36.7 L MCV (80-95) fL 80.1 MCH (27.0-33.0) pg 22.1 L MCHC (32.0-36.0) g/dL 27.5 L RDW (11.8-14.1) % 16.7 H Plt Count (130-400) x1000/uL 274 MPV (8.0-11.0) fL 9.0 Immature Gran % % 0.5 Neutrophils % 83.7 Lymphocytes % 7.1 Monocytes % 6.0 Eosinophils % 2.6 Basophils % 0.1 Absolute Neutrophils (1.2-6.7) k/cumm 10.11 H Absolute Lymphocytes (1.2-3.4) k/cumm 0.86 L Absolute Monocytes (0.11-0.7) k/cumm 0.72 H Absolute Eosinophils (0.0-0.7) k/cumm 0.31 Absolute Basophils (0.0-0.2) k/cumm 0.01 Differential Comment Diff reviewed RBC Morphology See below Polychromasia Present Hypochromasia 2+ Poikilocytosis 2+ Basophilic Stippling Present Sodium (136-145) mmol/L 148 H Potassium (3.5-5.1) mmol/L 4.2 Chloride (98-107) mmol/L 110 H Carbon Dioxide (21.0-32.0) mmol/L 33.2 H Anion Gap (3-11) mmol/L 4.8 BUN (7-18) mg/dL 36 H Creatinine (0.70-1.30) mg/dL 1.86 H Estimated GFR/1.73 m2 (mL/min/1.73m2) 37.37 Glucose (74-106) mg/dL 130 H Lactate (0.6-1.4) mmol/L Calcium (8.5-10.1) mg/dL 8.5 Magnesium (1.8-2.4) mg/dL 2.1 Total Bilirubin (0.2-1.0) mg/dL 0.3 AST (15-37) U/L 14 L ALT (16-63) U/L 15 L Alkaline Phosphatase (46-116) U/L 124 H Troponin I (<0.06) ng/Ml < 0.05 NT-Pro-B Natriuret Pep (<300) pg/mL Total Protein (6.4-8.2) g/dL 6.5 Albumin (3.4-5.0) g/dL 2.9 L Lipase (73-393) U/L 85 Urine Color (Yellow) Urine Clarity (Clear) Urine pH (5-8) Ur Specific [place] (1.005-1.025) Urine Protein (Negative) mg/dL Urine Ketones (Negative) mg/dL Urine Blood (Negative) Urine Nitrite (Negative) Urine Bilirubin (Negative) Urine Urobilinogen (Up TO 0.2) EU/dL Ur Leukocyte Esterase (Negative) Urine RBC (0-2) HPF Urine WBC (0-5) HPF Ur Epithelial Cells (Negative) HPF Urine Crystals (Negative) HPF Urine Bacteria (Negative) HPF Urine Casts (Negative) LPF Urine Mucus (Negative) Ur Culture Indicated? Urine Glucose (Negative) mg/dL Range/Units 03/09/19 03/09/19 03/09/19 08:50 09:13 12:03 WBC (4.4-10.8) k/cumm RBC (4.50-6.00) m/cumm Hgb (13.5-17.5) g/dL Hct (40.0-50.0) % MCV (80-95) fL MCH (27.0-33.0) pg MCHC (32.0-36.0) g/dL RDW (11.8-14.1) % Plt Count (130-400) x1000/uL MPV (8.0-11.0) fL Immature Gran % % Neutrophils % Lymphocytes % Monocytes % Eosinophils % Basophils % Absolute Neutrophils (1.2-6.7) k/cumm Absolute Lymphocytes (1.2-3.4) k/cumm Absolute Monocytes (0.11-0.7) k/cumm Absolute Eosinophils (0.0-0.7) k/cumm Absolute Basophils (0.0-0.2) k/cumm Differential Comment RBC Morphology Polychromasia Hypochromasia Poikilocytosis Basophilic Stippling Sodium (136-145) mmol/L Potassium (3.5-5.1) mmol/L Chloride (98-107) mmol/L Carbon Dioxide (21.0-32.0) mmol/L Anion Gap (3-11) mmol/L BUN (7-18) mg/dL Creatinine (0.70-1.30) mg/dL Estimated GFR/1.73 m2 (mL/min/1.73m2) Glucose (74-106) mg/dL Lactate (0.6-1.4) mmol/L 0.7 Calcium (8.5-10.1) mg/dL Magnesium (1.8-2.4) mg/dL Total Bilirubin (0.2-1.0) mg/dL AST (15-37) U/L ALT (16-63) U/L Alkaline Phosphatase (46-116) U/L Troponin I (<0.06) ng/Ml NT-Pro-B Natriuret Pep (<300) pg/mL 466 H Total Protein (6.4-8.2) g/dL Albumin (3.4-5.0) g/dL Lipase (73-393) U/L Urine Color (Yellow) Yellow Urine Clarity (Clear) Sl cloudy Urine pH (5-8) 6.0 Ur Specific [place] (1.005-1.025) 1.020 Urine Protein (Negative) mg/dL 100 H Urine Ketones (Negative) mg/dL Negative Urine Blood (Negative) Small H Urine Nitrite (Negative) Negative Urine Bilirubin (Negative) Negative Urine Urobilinogen (Up TO 0.2) EU/dL 0.2 Ur Leukocyte Esterase (Negative) Moderate H Urine RBC (0-2) HPF Urine WBC (0-5) HPF >50 H Ur Epithelial Cells (Negative) HPF Urine Crystals (Negative) HPF Urine Bacteria (Negative) HPF Urine Casts (Negative) LPF Urine Mucus (Negative) Ur Culture Indicated? Yes Urine Glucose (Negative) mg/dL Negative ECG Data Attestation: I personally reviewed and interpreted this ECG (s) as follows: Interpretation: rate of 63, sinus, no acute ST elevation or depression. ND 140, QTc 428. QRS 106. HPI General Mode of arrival: ambulatory . Date/Time Provider Initiated Documentation: 03/09/19 09:26 . Limitations to Documentation: no limitations . Information obtained by: patient . History of Present Illness 58 year old M presents to the emergency department with the chief complaint of Increased confusion, hypoxia, described as mild, Patient started experiencing this hour(s) (This morning from the [place]) and it has been now resolved. No relieving factors improve symptom(s), No exacerbating factors reported . Patient notes no other symptoms.. Patient did receive the following treatments prior to arrival, other (2 L nasal cannula) Related Data Home Medications Medication Instructions Recorded Confirmed cyanocobalamin (vitamin B-12) 1,000 mcg PO DAILY 12/23/17 03/09/19 ferrous sulfate 325 mg PO BID #0 tab 12/31/17 03/09/19 magnesium chloride [Mag 64] 64 mg PO BID #0 tab 02/10/18 03/09/19 terazosin 4 mg PO BID #0 cap 02/10/18 03/09/19 Centrum Complete 1 tab PO DAILY 03/01/18 03/09/19 ascorbic acid (vitamin C) [Vitamin 1 tab PO BID 03/01/18 03/09/19 C] acidophilus-pectin, citrus 1 cap PO TID #0 tab 03/24/18 03/02/19 Eliquis 5 mg PO BID #60 tab 06/19/18 03/09/19 Novolog Flexpen U-100 Insulin See Rx Instructions .ROUTE 06/19/18 03/09/19 .COMPLEX #15 ml melatonin 6 mg PO HS #30 tab 06/19/18 03/09/19 pantoprazole 40 mg PO DAILY #60 tab 06/19/18 03/09/19 sodium bicarbonate 650 mg PO TID #90 tab 06/19/18 03/09/19 calcium carbonate-vitamin D3 1 tab PO BID 07/09/18 03/09/19 [Calcium 500 + D] clonidine HCl [Catapres] 0.1 mg PO TID #0 tab 07/23/18 03/09/19 venlafaxine [Effexor XR] 112.5 mg PO DAILY 10/23/18 03/09/19 acetaminophen [Tylenol] 1,000 mg PO TID 01/08/19 03/02/19 gabapentin 300 mg PO TID 01/08/19 03/02/19 risperidone [Risperdal] 2 mg PO DAILY 01/08/19 03/09/19 Zyrtec 10 mg PO DAILY 02/23/19 03/02/19 Lantus Solostar U-100 Insulin 65 units SUBCUT BID #1 ml 02/26/19 03/09/19 amlodipine 10 mg PO DAILY 02/26/19 03/09/19 levothyroxine 12.5 mcg PO DAILY@0600 02/26/19 03/09/19 prednisone 20 mg PO DAILY #1 tab 02/26/19 03/09/19 levofloxacin 750 mg PO DAILY #5 tab 03/02/19 03/09/19 cephalexin [Keflex] 500 mg PO BID #7 cap 03/09/19 furosemide 20 mg DAILY 03/09/19 03/09/19 Previous Rx's Medication Instructions Recorded ferrous sulfate 325 mg PO BID #0 tab 12/31/17 magnesium chloride [Mag 64] 64 mg PO BID #0 tab 02/10/18 terazosin 4 mg PO BID #0 cap 02/10/18 acidophilus-pectin, citrus 1 cap PO TID #0 tab 03/24/18 Eliquis 5 mg PO BID #60 tab 06/19/18 Novolog Flexpen U-100 Insulin See Rx Instructions .ROUTE 06/19/18 .COMPLEX #15 ml melatonin 6 mg PO HS #30 tab 06/19/18 pantoprazole 40 mg PO DAILY #60 tab 06/19/18 sodium bicarbonate 650 mg PO TID #90 tab 06/19/18 clonidine HCl [Catapres] 0.1 mg PO TID #0 tab 07/23/18 Lantus Solostar U-100 Insulin 65 units SUBCUT BID #1 ml 02/26/19 prednisone 20 mg PO DAILY #1 tab 02/26/19 levofloxacin 750 mg PO DAILY #5 tab 03/02/19 cephalexin [Keflex] 500 mg PO BID #7 cap 03/09/19 Allergies Allergy/AdvReac Type Severity Reaction Status Date / Time No Known Allergies Allergy Verified 03/02/19 00:34 General Stated Complaint: GenMedical YVES: 3 Review of Systems All systems reviewed & are unremarkable except as noted in HPI and below Constitutional Constitutional: Reports as per HPI, Denies chills and Denies fever(s) Eyes Eyes: Denies blurry vision ENT Ears, Nose, Mouth, and Throat: Denies dizziness, Denies sore throat and Denies throat swelling Cardiovascular Cardiovascular: Denies chest pain and Denies dyspnea Respiratory Respiratory: Denies cough and Denies dyspnea Gastrointestinal Gastrointestinal: Denies abdominal pain, Denies diarrhea and Denies vomiting Genitourinary Genitourinary: Denies hematuria and Denies dysuria Musculoskeletal Musculoskeletal: Denies back pain and Denies numbness Integumentary/Breasts Skin/Breast: Denies lesions and Denies rash Neurologic Neurologic: Denies dizziness, Denies focal weakness and Denies numbness Allergic/Immunologic Allergic/Immunologic: Denies throat swelling [facility] Medical History Acromegaly (Chronic) Acute on chronic kidney failure (Resolved) Adrenal insufficiency (Chronic) Ambulatory dysfunction (Chronic) Anemia (Chronic) Atrial flutter, paroxysmal (Chronic) Back pain (Chronic 06/21/13) CAD (coronary artery disease) (Chronic) Cardiopulmonary arrest with successful resuscitation (Resolved) Cholelithiasis (Chronic) Chronic anxiety (Chronic) Chronic bipolar disorder (Chronic) a. With history of psychosis. Chronic cholecystitis (Chronic) Chronic insomnia (Chronic) Chronic pain (Chronic) On both Methadone and Fentanyl as well as Ultram and Naproxen. CKD (chronic kidney disease) (Chronic) Complicated UTI (urinary tract infection) (Resolved) Diabetes mellitus (Chronic) Diabetic foot ulcer (Chronic) Diabetic ulcer of toe associated with diabetes mellitus due to underlying condition, with bone involvement without evidence of necrosis (Inactive) 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 (Resolved) Dyslipidemia (Chronic) Elevated troponin I level (Resolved) Endocarditis due to Staphylococcus (Resolved) Heme positive stool (Resolved) Hemorrhagic cystitis (Chronic) Hyperkalemia (Resolved) Hypertension (Chronic) Hypomagnesemia (Chronic) Hypothyroidism (Chronic) Impaired mobility and ADLs (Chronic) Inability to get out of bed (Chronic 06/21/13) Lactic acidosis (Resolved) MRSA bacteremia (Resolved) Obesity (Chronic) a. Obesity though he has had significant weight loss since last seen. Osteoarthritis of both knees (Chronic) Severe. a. [id number] bilateral knees. 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 2 diabetes mellitus (Resolved) Palliative care encounter (Chronic) DObbertin Pedal edema (Chronic) Poor self care (Chronic 06/21/13) Poorly controlled type 2 diabetes mellitus with circulatory disorder (Chronic) Pulmonary hypertension (Chronic) Rheumatoid arthritis (Chronic) Sepsis (Resolved) Septic arthritis of elbow, right (Inactive) Toxic metabolic encephalopathy (Resolved) Toxic metabolic encephalopathy (Resolved) Ulcerative colitis (Chronic) UTI (urinary tract infection) (Resolved) UTI (urinary tract infection) due to Enterococcus (Resolved) Surgical History Arthroplasty of knee (Resolved 03/18/12) irrigation and lavage right Fracture, Open Treatment (Resolved) 06/06/17[place] [place] ORIF RIGHT DISTAL HUMERUS FRACTURE History of insertion of T-tube into biliary tract (Chronic) S/P colectomy (Chronic) Social History Smoking/Tobacco Use Status: Former Tobacco Use Alcohol Intake: former Drug use: Rarely Substance use type: marijuana Housing: detention Do you feel safe at home: Yes Do you feel safe in your relationship?: Yes Exam Const General: cooperative, no acute distress and ill appearing chronically Orientation: alert, awake and oriented x3 HENMT Head: normal to inspection Face and sinus: normal facial exam Eyes General: appearance normal, both eyes and all related structures EOM: EOM intact bilaterally Neck Neck: normal visual inspection and No submandibular swelling Lymphatic: no lymphadenopathy noted Chest Chest: normal inspection of the chest and no tenderness Resp Effort & Inspection: normal respiratory effort and able to speak in complete sentences Auscultation: diminished lung sounds bilaterally throughout and wheezes expiratory wheezes Cardio Rate: regular rate Rhythm: regular rhythm GI Inspection: normal to inspection and obesity Palpation: soft, not firm, not rigid and nontender Auscultation: normal bowel sounds Back/Spine/Pelvis Pelvis: no pain with anterior-posterior compression Skin General skin exam: no rashes or lesions noted Neuro General: alert, awake, oriented x3 and moves all extremities Cognition: normal cognition Speech: abnormal speech (slowed at baseline) Motor: other (MS 4/5 throughout) Sensory Exam: no sensory deficits noted Extrem Other: Chronic appearing skin changes to bilateral lower extremities likely consistent with venous insufficiency Psych Appearance: grossly normal Mental Status: mental status grossly normal Speech and Movement: speech and movement normal Affect: normal affect Course Vital Signs Vital signs: Vital Signs Chronic temperature 97.5 F L 03/09/19 08:26 Pulse 64 03/09/19 08:26 Respiratory Rate 18 03/09/19 08:26 Pulse Oximetry 92 L 03/09/19 08:26 Temperature 97.5 F L 03/09/19 08:26 Temperature Source Skin 03/09/19 08:26 Pulse 64 03/09/19 08:26 Respiratory Rate 18 03/09/19 08:26 Respiratory Effort 03/09/19 08:32 Blood Pressure Position Supine 03/09/19 08:26 Pulse Oximetry 92 L 03/09/19 08:26 Oxygen Delivery Method Room Air 03/09/19 08:26 Oxygen Flow Rate 0 03/09/19 08:26 Pain Level 0 03/09/19 08:26
[2019-03-09] MEDS: Albuterol/Ipratropium 3 ML UPD VIAL (08:38)
[2019-03-09 09:05] LABS: Abs Immature Grans 0.06 k/cumm (0.0-0.09); Absolute Basophil Count 0.01 k/cumm (0.0-0.2); Absolute Lymphocyte Count 0.86 k/cumm (1.2-3.4); Absolute Monocyte Count 0.72 k/cumm (0.11-0.7); Absolute Neutrophil Count 10.11 k/cumm (1.2-6.7); Basophils % 0.1; Eosinophils % 2.6; HCT 36.7 % (40.0-50.0); HGB 10.1 g/dL (13.5-17.5); Immature Grans % 0.5 %; Lymphocytes % 7.1; Mean Corp. HGB Concentration 27.5 g/dL (32.0-36.0); Mean Corpuscular Hemoglobin 22.1 pg (27.0-33.0); Mean Corpuscular Volume 80.1 fL (80-95); Neutrophils % 83.7; RBC 4.58 m/cumm (4.50-6.00); RBC Distribution Width 16.7 % (11.8-14.1); White Blood Cell Count 12.08 k/cumm (4.4-10.8)
[2019-03-09 09:19] LABS: ALT 15 U/L (16-63); AST 14 U/L (15-37); Albumin 2.9 g/dL (3.4-5.0); Alkaline Phosphatase 124 U/L (46-116); Anion Gap 4.8 mmol/L (3-11); BUN 36 mg/dL (7-18); Bilirubin, Total 0.3 mg/dL (0.2-1.0); CO2 33.2 mmol/L (21.0-32.0); CREATININE 1.86 mg/dL (0.70-1.30); Calcium 8.5 mg/dL (8.5-10.1); Chloride 110 mmol/L (98-107); Estimated GFR 37.37 (mL/min/1.73m2); Glucose 130 mg/dL (74-106); Potassium 4.2 mmol/L (3.5-5.1); Sodium 148 mmol/L (136-145); Total Protein 6.5 g/dL (6.4-8.2)
[2019-03-09] MEDS: Lidocaine 2% Jelly 11 ML SYR UR (09:19)
[2019-03-09 09:23] LABS: Absolute Eosinophil Count 0.31 k/cumm (0.0-0.7)
[2019-03-09 09:24] LABS: Lipase 85 U/L (73-393); Magnesium 2.1 mg/dL (1.8-2.4); Troponin I < 0.05 ng/Ml (<0.06)
[2019-03-09 09:28] LABS: NT-proBNP 466 pg/mL (<300); Platelet Count 274 x1000/uL (130-400)
[2019-03-09 09:29] LABS: Diff Comment Diff Reviewed
[2019-03-09] MEDS: Normal Saline 250 ML IV (09:30)
[2019-03-09 09:31] LABS: Basophilic Stippling Present; Hypochromasia 2+; Polychromasia Present
[2019-03-09 09:32] LABS: Poikilocytes 2+
[2019-03-09 09:42] LABS: Bilirubin Negative (Negative); Blood Small (Negative); Clarity Sl Cloudy (Clear); Glucose Negative (Negative); Ketones Negative (Negative); Leukocyte Esterase Moderate (Negative); Nitrite Negative (Negative); Urobilinogen 0.2 EU/dL (Up TO 0.2)
--- NOTE | 2019-03-09 09:48 | DI.RAD_ITS ---
EXAM: XR CHEST 2V PA LATERAL INDICATION: sob, hypoxia, r/o pneumonia. COMPARISON: XR CHEST 2V PA LATERAL from 03/01/2019 TECHNIQUE: 2D digital imaging was performed. FINDINGS: Heart size is at the upper limits of normal. There is prominence of the pulmonary vasculature. Ther e is prominence of the interstitial markings bilaterally. There are small bilateral pleural effusion s. IMPRESSION: Findings suspicious for congestive heart failure.
[2019-03-09 10:07] LABS: WBC >50 HPF (0-5)
[2019-03-09 10:09] LABS: C & S Indicated? Yes
[2019-03-09] MEDS: Cephalexin 500 MG CAP PO (12:06)
[2019-03-09] MEDS: Furosemide 20 MG TAB (12:06)
[2019-03-09 12:08] LABS: Lactate 0.7 mmol/L (0.6-1.4)
--- NOTE | 2019-03-09 13:49 | NUR.NOTE ---
IV Dc'd with cannula intact @ 1335 Nursing Note:
== END 2019-03-09 14:10 | disposition home or self-care (01) ==
PROVIDERS: Emergency Provider Physician Assistant; PCP Family Medicine
DX: R41.0 Disorientation, unspecified (principal); R09.02 Hypoxemia; N39.0 Urinary tract infection, site not specified; I50.23 Acute on chronic systolic (congestive) heart failure; N18.9 Chronic kidney disease, unspecified; I12.9 Hypertensive chronic kidney disease with stage 1 through stage 4 chronic kidney disease, or unspecified chronic kidney disease; E11.22 Type 2 diabetes mellitus with diabetic chronic kidney disease; Z79.4 Long term (current) use of insulin
CPT/HCPCS: 36415; 80053; 83690; 87449; 93005; 94640; 96360; 99285; 71046; 81003; 81015; 83605; 83735; 83880; 84484; 85025; 87086; 93010; J7620

== ENCOUNTER 2019-03-12 13:26 | Outpatient (REF) | payer MEDICARE, MEDICAID, SELFPAY ==
[2019-03-12 13:38] LABS: Abs Immature Grans 0.04 k/cumm (0.0-0.09); Absolute Basophil Count 0.01 k/cumm (0.0-0.2); Absolute Eosinophil Count 0.21 k/cumm (0.0-0.7); Absolute Monocyte Count 0.79 k/cumm (0.11-0.7); Absolute Neutrophil Count 12.38 k/cumm (1.2-6.7); Basophils % 0.1; Eosinophils % 1.5; HCT 32.8 % (40.0-50.0); Immature Grans % 0.3 %; Lymphocytes % 2.9; Mean Corp. HGB Concentration 27.4 g/dL (32.0-36.0); Mean Corpuscular Hemoglobin 22.3 pg (27.0-33.0); Mean Corpuscular Volume 81.2 fL (80-95); Monocytes % 5.7; Neutrophils % 89.5; Platelet Count 232 x1000/uL (130-400); RBC 4.04 m/cumm (4.50-6.00); RBC Distribution Width 16.2 % (11.8-14.1); White Blood Cell Count 13.83 k/cumm (4.4-10.8)
[2019-03-12 13:41] LABS: Anion Gap 6.3 mmol/L (3-11); BUN 32 mg/dL (7-18); CO2 33.7 mmol/L (21.0-32.0); Calcium 8.1 mg/dL (8.5-10.1); Chloride 109 mmol/L (98-107); Estimated GFR 32.49 (mL/min/1.73m2); Glucose 97 mg/dL (74-106); Potassium 3.8 mmol/L (3.5-5.1); Sodium 149 mmol/L (136-145)
== END 2019-03-12 13:46 ==
LOC: LBN 13:26
PROVIDERS: PCP Family Medicine; Visit Provider Family Medicine
DX: J18.9 Pneumonia, unspecified organism (principal); I50.9 Heart failure, unspecified
CPT/HCPCS: 80048; 85025

== ENCOUNTER 2019-03-15 10:35 | Inpatient (IN) | payer MEDICARE, MEDICAID, SELFPAY ==
[2019-03-15] VITALS (75 sets, daily range): BP systolic 133–180; BP diastolic 59–97; PULSE 64–87; RESP 1–32; TEMP 36.5–37.6; O2SAT 91–100
--- NOTE | 2019-03-15 10:46 | ED.GENADUL_ITS ---
Discharge Plan Discharge Details Chief Complaint: SOB Admit Date/Time: 03/15/19 12:20 Admit Provider: Priscila Canela Attending Provider: Priscila Canela Primary Care Provider: Lou Maldonado ED Provider: Ashanti Hayes Discharge Data Discharge Date/Time-TO BE ENTERED AT DEPARTURE: 03/15/19 14:09 Medical Decision Making Brendan Corley is a 58 y/o man with a history of chronic kidney disease, proximal atrial flutter, coronary artery disease, bipolar disorder, diabetes, hype rlipidemia, pulmonary hypertension, adrenal insufficiency who presented to the emergency department with somnolence change from baseline, increased work of breathing. On exam patient is chronically ill-appearing, tachypneic in the mid 20s, arouses easily to voice but falls asleep quickly. Neurologically nonfocal. Concern for hypercapnia, metabolic/lyte derangement including adrenal insufficiency, CHF, pneumonia, ACS, other. Doubt acute emergent intracranial process. Exam/history is not consistent with meningitis, sepsis, acute emergent intra-abdominal process, acute aortic process, pulmonary embolism. Plan for EKG, screening labs, chest x-ray, O2 by nasal cannula, telemetry, IV hydrocortisone. Given my low suspicion and risk for decompensation while obtaining CT head given patient's body habitus/respiratory status, will hold CT head for now. VBG shows PCO2 approximately 80. Suspect hypercarbia is contributing significantly to patient's presenting symptoms, along with likely other concurrent processes including CHF. Plan for BiPAP. Chest x-ray consistent with CHF. Patient with elevated BNP. No leukocytosis. Patient improving on BiPAP, staying awake for longer periods of time, he remains appropriate when answering questions. Plan for 40 mg IV Lasix. Discussed patient presentation results with Dr. Canela, hospitalist, patient admitted to ICU. Plan for antibiotics for possible healthcare acquired pneumonia given reported fever in the field this morning. ABG 12:32 shows pH 7.298, PCO2 71.9. Settings currently 10: 5, will change to 12: 5. Plan for admission to ICU. Medical Records Medical records reviewed: Yes I reviewed the patient's medical records. Imaging Data Radiologic Study: Attestation: I personally reviewed and interpreted this imaging study as follows: Radiologist's impression: EXAM: XR PORTABLE CHEST AP CLINICAL HISTORY: cough TECHNIQUE: COMPARISON: XR CHEST 2V PA LATERAL from 03/09/2019 FINDINGS: AP view of the chest was obtained and is compared with recent film of March 09. Note is again made of bilateral pleural effusions and bilateral diffuse intrapulmonary interstitial infiltrates consistent with CHF. Little interval change in appearance comparison with the previous study. Cardiac enlargement again noted. IMPRESSION: Findings consistent with CHF, little interval change from March 09. Superimposed pneumonitis not specifically excluded on the basis of this examination. Lab Data Lab results reviewed: Yes I reviewed the patient's lab results. ECG Data Attestation: I personally reviewed and interpreted this ECG (s) as follows: Interpretation: EKG shows sinus rhythm at 73, normal axis, no acute ischemic changes, nondiagnostic EKG Repeat EKG shows sinus rhythm 66, normal axis, no acute ischemic changes, nondiagnostic EKG HPI General Mode of arrival: EMS . Date/Time Provider Initiated Documentation: 03/15/19 10:42 . Limitations to Documentation: altered mental status . Information obtained by: patient, EMS, RN notes reviewed and old records reviewed . HPI Narrative: Brendan Corley is a 58-year-old man with a history of chronic kidney disease, proximal atrial flutter, coronary artery disease, bipolar disorder, diabetes, hyperlipidemia, pulmonary hypertension, adrenal insufficiency who resides at the [facility] presenting to the emergency department with fatigue, cough, report from correction staff of fever. Patient also apparently somewhat less alert than usual this morning, blood sugar in the 60s, improved to 80s after eating. Per record review, patient has had multiple recent visits to the emergency department. Patient was admitted 01/2019 for apparently similar complaint, patient had brief treatment with BiPAP with subsequent improvement in respiratory status, also was received hydrocortisone for adrenal insufficiency, and seemed to improve dramatically on his first hospital day. He was presumed to have urosepsis initially, however his urine culture grew only yeast and antibiotics were discontinued. At the time of discharge remained unclear what had caused his altered mental status. Patient seen here 03/01/2019 and 03/09/2019 for shortness of breath and disorientation. Hypoxia on room air seem to be an issue, and patient was discharged home with plan for home O2 on the 03/09 visit. Patient reports he has been using his oxygen at the [facility]. Patient reports that he never uses his CPAP overnight, although he is supposed to be using it nightly. He denies having any pain, but does report recent cough. He denies shortness of breath, vomiting, diarrhea. Related Data Home Medications Medication Instructions Recorded Confirmed cyanocobalamin (vitamin B-12) 1,000 mcg PO DAILY 12/23/17 03/15/19 ferrous sulfate 325 mg PO BID #0 tab 12/31/17 03/15/19 magnesium chloride [Mag 64] 64 mg PO BID #0 tab 02/10/18 03/15/19 terazosin 4 mg PO BID #0 cap 02/10/18 03/15/19 Centrum Complete 1 tab PO DAILY 03/01/18 03/15/19 ascorbic acid (vitamin C) [Vitamin 1 tab PO BID 03/01/18 03/15/19 C] acidophilus-pectin, citrus 1 cap PO TID #0 tab 03/24/18 03/15/19 Eliquis 5 mg PO BID #60 tab 06/19/18 03/15/19 insulin aspart U-100 [Novolog See Rx Instructions .ROUTE 06/19/18 03/15/19 Flexpen U-100 Insulin] .COMPLEX #15 ml melatonin 6 mg PO HS #30 tab 06/19/18 03/15/19 pantoprazole 40 mg PO DAILY #60 tab 06/19/18 03/15/19 sodium bicarbonate 650 mg PO TID #90 tab 06/19/18 03/15/19 calcium carbonate-vitamin D3 1 tab PO BID 07/09/18 03/15/19 [Calcium 500 + D] clonidine HCl [Catapres] 0.1 mg PO TID #0 tab 07/23/18 03/15/19 venlafaxine [Effexor XR] 112.5 mg PO DAILY 10/23/18 03/15/19 acetaminophen [Tylenol] 1,000 mg PO TID 01/08/19 03/15/19 gabapentin 300 mg PO TID 01/08/19 03/15/19 risperidone [Risperdal] 2 mg PO DAILY 01/08/19 03/15/19 Zyrtec 10 mg PO DAILY 02/23/19 03/15/19 amlodipine 10 mg PO DAILY 02/26/19 03/15/19 levothyroxine 12.5 mcg PO DAILY@0600 02/26/19 03/15/19 prednisone 20 mg PO DAILY #1 tab 02/26/19 03/15/19 cephalexin [Keflex] 500 mg PO BID #7 cap 03/09/19 03/15/19 furosemide 40 mg DAILY 03/09/19 03/15/19 Lantus Solostar U-100 Insulin See Rx Instructions .ROUTE .COMPLEX 03/15/19 03/15/19 doxycycline hyclate 100 mg PO BID 03/15/19 03/15/19 Previous Rx's Medication Instructions Recorded ferrous sulfate 325 mg PO BID #0 tab 12/31/17 magnesium chloride [Mag 64] 64 mg PO BID #0 tab 02/10/18 terazosin 4 mg PO BID #0 cap 02/10/18 acidophilus-pectin, citrus 1 cap PO TID #0 tab 03/24/18 Eliquis 5 mg PO BID #60 tab 06/19/18 insulin aspart U-100 [Novolog See Rx Instructions .ROUTE 06/19/18 Flexpen U-100 Insulin] .COMPLEX #15 ml melatonin 6 mg PO HS #30 tab 06/19/18 pantoprazole 40 mg PO DAILY #60 tab 06/19/18 sodium bicarbonate 650 mg PO TID #90 tab 06/19/18 clonidine HCl [Catapres] 0.1 mg PO TID #0 tab 07/23/18 prednisone 20 mg PO DAILY #1 tab 02/26/19 cephalexin [Keflex] 500 mg PO BID #7 cap 03/09/19 Allergies Allergy/AdvReac Type Severity Reaction Status Date / Time No Known Allergies Allergy Verified 03/15/19 11:52 General YVES: 3 Review of Systems Narrative: Constitutional: denies fevers Eyes: denies eye pain ENT: denies ear pain, dental pain, sore throat Cardiovascular: denies chest pain, edema Respiratory: denies SOB, reports cough GI: denies abdominal pain, vomiting, diarrhea : denies flank pain MSK: denies back pain, neck pain, arthralgias, myalgias Skin: denies rash Neuro: denies headaches, numbness, weakness [facility] Medical History Acromegaly (Chronic) Acute on chronic kidney failure (Resolved) Adrenal insufficiency (Chronic) Ambulatory dysfunction (Chronic) Anemia (Chronic) Atrial flutter, paroxysmal (Chronic) Back pain (Chronic 06/21/13) CAD (coronary artery disease) (Chronic) Cardiopulmonary arrest with successful resuscitation (Resolved) Cholelithiasis (Chronic) Chronic anxiety (Chronic) Chronic bipolar disorder (Chronic) a. With history of psychosis. Chronic cholecystitis (Chronic) Chronic insomnia (Chronic) Chronic pain (Chronic) On both Methadone and Fentanyl as well as Ultram and Naproxen. CKD (chronic kidney disease) (Chronic) Complicated UTI (urinary tract infection) (Resolved) Diabetes mellitus (Chronic) Diabetic foot ulcer (Chronic) Diabetic ulcer of toe associated with diabetes mellitus due to underlying condition, with bone involvement without evidence of necrosis (Inactive) 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 (Resolved) Dyslipidemia (Chronic) Elevated troponin I level (Resolved) Endocarditis due to Staphylococcus (Resolved) Heme positive stool (Resolved) Hemorrhagic cystitis (Chronic) Hyperkalemia (Resolved) Hypertension (Chronic) Hypomagnesemia (Chronic) Hypothyroidism (Chronic) Impaired mobility and ADLs (Chronic) Inability to get out of bed (Chronic 06/21/13) Lactic acidosis (Resolved) MRSA bacteremia (Resolved) Obesity (Chronic) a. Obesity though he has had significant weight loss since last seen. Osteoarthritis of both knees (Chronic) Severe. a. [id number] bilateral knees. 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 2 diabetes mellitus (Resolved) Palliative care encounter (Chronic) DObbertin Pedal edema (Chronic) Poor self care (Chronic 06/21/13) Poorly controlled type 2 diabetes mellitus with circulatory disorder (Chronic) Pulmonary hypertension (Chronic) Rheumatoid arthritis (Chronic) Sepsis (Resolved) Septic arthritis of elbow, right (Inactive) Toxic metabolic encephalopathy (Resolved) Toxic metabolic encephalopathy (Resolved) Ulcerative colitis (Chronic) UTI (urinary tract infection) (Resolved) UTI (urinary tract infection) due to Enterococcus (Resolved) Social History Smoking/Tobacco Use Status: Former Tobacco Use Alcohol Intake: former Drug use: Rarely Substance use type: marijuana Housing: correction Do you feel safe at home: Yes Do you feel safe in your relationship?: Yes Exam Narrative Exam Narrative: Constitutional: Chronically ill-appearing, resting with his eyes closed, responds to verbal stimuli, follows commands appropriately, gives one- word answers to questions HENT: head atraumatic/normocephalic/normal inspection, mucous membranes moist Eyes: conjunctiva normal, sclera normal, pupils 3mm b/l Neck: no stridor, normal ROM, trachea midline Chest: normal inspection Resp: Increased work of breathing with tachypnea in the mid 20s, lungs diminished bilaterally Cardio: normal rate, normal rhythm, no murmur appreciated GI: abdomen soft, non-tender, non-distended Back: normal inspection, no rash Skin: warm, dry, normal color, no rash Neuro: Somnolent but easily arousable, grossly non-focal, normal tone Ext: no edema Course Lab/Test Results Lab/Test Results: 03/15/19 10:42 Blood Blood Culture - Pending 03/15/19 10:42 Blood Blood Culture - Pending Critical Care Time Critical Care Time Total Critical Care Time: 45 Attestation: I have spent greater than 45 minutes of critical care time caring for this critically ill patient, including but not limited to interpretation of labs/results, frequent reassessments.
[2019-03-15 11:09] LABS: Abs Immature Grans 0.03 k/cumm (0.0-0.09); Absolute Basophil Count 0.02 k/cumm (0.0-0.2); Absolute Eosinophil Count 0.13 k/cumm (0.0-0.7); Absolute Lymphocyte Count 0.29 k/cumm (1.2-3.4); Absolute Monocyte Count 0.62 k/cumm (0.11-0.7); Absolute Neutrophil Count 8.92 k/cumm (1.2-6.7); Basophils % 0.2; Eosinophils % 1.3; HCT 34.3 % (40.0-50.0); HGB 9.1 g/dL (13.5-17.5); Immature Grans % 0.3 %; Lymphocytes % 2.9; Mean Corp. HGB Concentration 26.5 g/dL (32.0-36.0); Mean Corpuscular Hemoglobin 21.8 pg (27.0-33.0); Mean Corpuscular Volume 82.1 fL (80-95); Mean Platelet Volume 9.3 fL (8.0-11.0); Monocytes % 6.2; Neutrophils % 89.1; Platelet Count 229 x1000/uL (130-400); RBC 4.18 m/cumm (4.50-6.00); RBC Distribution Width 15.7 % (11.8-14.1); White Blood Cell Count 10.01 k/cumm (4.4-10.8)
[2019-03-15 11:12] LABS: Lactate 0.7 mmol/L (0.6-1.4)
[2019-03-15 11:13] LABS: pH (Venous) 7.26 (7.35-7.45)
[2019-03-15 11:14] LABS: HCO3 (Venous) 36 mmol/L (22-28); TCO2 (Venous) 35 mmol/L (22-29); pO2 (Venous) 57 mm/Hg (28-44)
[2019-03-15 11:15] LABS: BE (Venous) 8.6 mmol/L (-3-3); O2 Sat (Venous) 89 % (70-80)
[2019-03-15 11:18] LABS: pCO2 (Venous) 79 mm/Hg (34-47)
[2019-03-15] MEDS: Hydrocortisone SOD SUC. 100 MG VIAL IVP (11:21)
[2019-03-15] MEDS: Albuterol/Ipratropium 3 ML UPD VIAL UPD ×2 (11:21→17:44)
[2019-03-15 11:29] LABS: INR 1.1 (0.9-1.1); PTT Activated 25.5 sec (21.0-31.4); Prothrombin Time 10.7 sec (9.3-11.0)
--- NOTE | 2019-03-15 11:48 | DI.RAD_ITS ---
EXAM: XR PORTABLE CHEST AP CLINICAL HISTORY: cough TECHNIQUE: COMPARISON: XR CHEST 2V PA LATERAL from 03/09/2019 FINDINGS: AP view of the chest was obtained and is compared with recent film of March 09. Note is again made of bilateral pleural effusions and bilateral diffuse intrapulmonary interstitial i nfiltrates consistent with CHF. Little interval change in appearance comparison with the previous st udy. Cardiac enlargement again noted. IMPRESSION: Findings consistent with CHF, little interval change from March 09. Superimposed pneumonitis not specifically excluded on the basis of this examination.
[2019-03-15 11:54] LABS: ALT 11 U/L (16-63); AST 8 U/L (15-37); Albumin 2.6 g/dL (3.4-5.0); Alkaline Phosphatase 110 U/L (46-116); Anion Gap 3.5 mmol/L (3-11); BUN 38 mg/dL (7-18); Bilirubin, Total 0.4 mg/dL (0.2-1.0); CO2 36.5 mmol/L (21.0-32.0); CREATININE 1.98 mg/dL (0.70-1.30); Calcium 9.4 mg/dL (8.5-10.1); Chloride 108 mmol/L (98-107); Estimated GFR 34.77 (mL/min/1.73m2); Glucose 151 mg/dL (74-106); NT-proBNP 1875 pg/mL (<300); Potassium 4.6 mmol/L (3.5-5.1); Sodium 148 mmol/L (136-145); Total Protein 6.5 g/dL (6.4-8.2)
[2019-03-15 11:55] LABS: Troponin I < 0.05 ng/Ml (<0.06)
[2019-03-15] MEDS: Furosemide 40 MG/4 ML VIAL IVP ×2 (12:10→15:15)
[2019-03-15 12:29] LABS: BE 8.7 mmol/L (-3-3); HCO3 35 mmol/L (22-28); pO2 64 mmHg (83-108); sO2 94 % (94-98); tCO2 34 mmol/L (22-29)
[2019-03-15 12:33] LABS: FIO2 30 %; Site Right Radial; pCO2 72 mmHg (34-47)
[2019-03-15 12:44] LABS: Bilirubin Negative (Negative); Blood Small (Negative); Clarity Sl Cloudy (Clear); Glucose Negative (Negative); Ketones Negative (Negative); Leukocyte Esterase Large (Negative); Nitrite Negative (Negative); Urobilinogen 0.2 EU/dL (Up TO 0.2)
[2019-03-15] MEDS: PIPERACILLIN/TAZO 4.5 GM in Normal Saline 100 ML IVPB (12:44)
[2019-03-15 12:48] LABS: C & S Indicated? Yes; WBC >50 HPF (0-5)
--- NOTE | 2019-03-15 13:38 | HPE_ITS ---
Date of service: 03/15/19 Time of Service: 13:38 Assessment and Plan Assessment and plan (1) Acute on chronic respiratory failure with hypoxia and hypercapnia: Status: Acute Assessment and plan: Multifactorial, due to combined diastolic and R-sided CHF in acute exacerbation as well as likely pneumonia. Patient was initiated on BiPAP, broad spectrum antibiotics, diuresis, which we will continue in the ICU. (2) Pneumonia: Status: Acute Assessment and plan: As above (3) Acute on chronic diastolic heart failure: Status: Acute Assessment and plan: As above. Monitor I/O's, daily weights. BiPAP should also aid in diuresis. (4) UTI (urinary tract infection): Status: Acute Assessment and plan: C&S pending. For now, treat with broad spectrum antibiotics. several prior cultures with yeast. (5) Toxic metabolic encephalopathy: Status: Acute Assessment and plan: Normal part of Brendan's presentation whenever he is adrenally insufficient, though this time CO2 retention could also be contributing. Monitor mental status while treating underlying conditions. (6) Acute adrenal insufficiency: Status: Acute Assessment and plan: Continue stress dose steroids initiated in ED. The likely reason for hypoglycemia this morning; likely triggered by underlying infectious process. (7) Pulmonary hypertension: Status: Chronic Assessment and plan: Diurese; monitor respiratory status. Provide BiPAP. (8) Atrial flutter, paroxysmal: Status: Chronic Assessment and plan: Continue anticoagulation with eliquis. (9) Poorly controlled type 2 diabetes mellitus with circulatory disorder: Status: Chronic Assessment and plan: Hold long acting insulin today. Anticipate being able to resume this tomorrow. (10) Discharge planning issues: Status: Acute Assessment and plan: Full code Total Critical Care Time 60 minutes. (11) DVT prophylaxis: Status: Acute Assessment and plan: On therapeutic eliquis. History of Present Illness History of Present Illness Chief Complaint: change in mental status Narrative: Mr Corley is a 58 year old male, well known to our service, who has a PMHx of chronic adrenal insufficiency due to steroid dependence for RA and Crohn's disease, as well as IDDM2, paroxysmal Aflutter on anticoagulation with eliquis, and chronic anemia, who was sent from the [facility] today where he resides after being found to be hypoglycemic and more lethargic this morning than his normal. Evidently, he was also found to have a fever there. In the ED, he was no longer hypoglycemic. He was still lethargic, found to have likely multifactorial acidosis (both respiratory from CO2 retention and metabolic), was placed on BiPAP 12/5 @ 30% FiO2, given a dose of lasix due to suspicion for CHF, and initiated on broad spectrum antibiotics. He also received stress dose steroids. We were asked to admit the patient for further care. When I came to see the patient in the ED, he was still quite lethargic, but arousable to verbal stimuli and recognized me. He kept dozing off during the interview. He did endorse feeling a little short of breath, but denies being in pain. Of note, the patient was seen in the ED on 03/01/2019 for respiratory symptoms and sent back to the [facility] on levofloxacin for what was felt to be a combination of reactive airway disease and CHF. His lasix was increased at that time from 20 mg to 40 mg. He was seen in the ED again on 03/09/2019, felt to have a UTI, CHF, and hypoxia, was switched to keflex, initiated on new supplemental oxygen and sent back to the [facility]. This is his 3rd visit to the ED in the last 2 weeks. Review of Systems Narrative: 12 systems reviewed - but limited due to patient's mental status. Pertinent positives and negatives are as per HPI. [facility] Medical History Acromegaly (Chronic) Acute on chronic kidney failure (Resolved) Adrenal insufficiency (Chronic) Ambulatory dysfunction (Chronic) Anemia (Chronic) Atrial flutter, paroxysmal (Chronic) Back pain (Chronic 06/21/13) CAD (coronary artery disease) (Chronic) Cardiopulmonary arrest with successful resuscitation (Resolved) Cholelithiasis (Chronic) Chronic anxiety (Chronic) Chronic bipolar disorder (Chronic) a. With history of psychosis. Chronic cholecystitis (Chronic) Chronic insomnia (Chronic) Chronic pain (Chronic) On both Methadone and Fentanyl as well as Ultram and Naproxen. CKD (chronic kidney disease) (Chronic) Complicated UTI (urinary tract infection) (Resolved) Diabetes mellitus (Chronic) Diabetic foot ulcer (Chronic) Diabetic ulcer of toe associated with diabetes mellitus due to underlying condition, with bone involvement without evidence of necrosis (Inactive) 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 (Resolved) Dyslipidemia (Chronic) Elevated troponin I level (Resolved) Endocarditis due to Staphylococcus (Resolved) Heme positive stool (Resolved) Hemorrhagic cystitis (Chronic) Hyperkalemia (Resolved) Hypertension (Chronic) Hypomagnesemia (Chronic) Hypothyroidism (Chronic) Impaired mobility and ADLs (Chronic) Inability to get out of bed (Chronic 06/21/13) Lactic acidosis (Resolved) MRSA bacteremia (Resolved) Obesity (Chronic) a. Obesity though he has had significant weight loss since last seen. Osteoarthritis of both knees (Chronic) Severe. a. [id number] bilateral knees. 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 2 diabetes mellitus (Resolved) Palliative care encounter (Chronic) DObbertin Pedal edema (Chronic) Poor self care (Chronic 06/21/13) Poorly controlled type 2 diabetes mellitus with circulatory disorder (Chronic) Pulmonary hypertension (Chronic) Rheumatoid arthritis (Chronic) Sepsis (Resolved) Septic arthritis of elbow, right (Inactive) Toxic metabolic encephalopathy (Resolved) Toxic metabolic encephalopathy (Resolved) Ulcerative colitis (Chronic) UTI (urinary tract infection) (Resolved) UTI (urinary tract infection) due to Enterococcus (Resolved) Social History Smoking/Tobacco Use Status: Former Tobacco Use Alcohol Intake: former Drug use: Rarely Substance use type: marijuana [facility] Do you feel safe at home: Yes Do you feel safe in your relationship?: Yes Meds Home Medications and Allergies Home Medications Medication Instructions Recorded Confirmed Type cyanocobalamin (vitamin B-12) 1,000 mcg PO DAILY 12/23/17 03/15/19 History ferrous sulfate 325 mg PO BID #0 tab 12/31/17 03/15/19 Rx magnesium chloride [Mag 64] 64 mg PO BID #0 tab 02/10/18 03/15/19 Rx terazosin 4 mg PO BID #0 cap 02/10/18 03/15/19 Rx Centrum Complete 1 tab PO DAILY 03/01/18 03/15/19 History ascorbic acid (vitamin C) [Vitamin 1 tab PO BID 03/01/18 03/15/19 History C] acidophilus-pectin, citrus 1 cap PO TID #0 tab 03/24/18 03/15/19 Rx Eliquis 5 mg PO BID #60 tab 06/19/18 03/15/19 Rx insulin aspart U-100 [Novolog See Rx Instructions .ROUTE 06/19/18 03/15/19 Rx Flexpen U-100 Insulin] .COMPLEX #15 ml melatonin 6 mg PO HS #30 tab 06/19/18 03/15/19 Rx pantoprazole 40 mg PO DAILY #60 tab 06/19/18 03/15/19 Rx sodium bicarbonate 650 mg PO TID #90 tab 06/19/18 03/15/19 Rx calcium carbonate-vitamin D3 1 tab PO BID 07/09/18 03/15/19 History [Calcium 500 + D] clonidine HCl [Catapres] 0.1 mg PO TID #0 tab 07/23/18 03/15/19 Rx venlafaxine [Effexor XR] 112.5 mg PO DAILY 10/23/18 03/15/19 History acetaminophen [Tylenol] 1,000 mg PO TID 01/08/19 03/15/19 History gabapentin 300 mg PO TID 01/08/19 03/15/19 History risperidone [Risperdal] 2 mg PO DAILY 01/08/19 03/15/19 History Zyrtec 10 mg PO DAILY 02/23/19 03/15/19 History amlodipine 10 mg PO DAILY 02/26/19 03/15/19 History levothyroxine 12.5 mcg PO DAILY@0600 02/26/19 03/15/19 History prednisone 20 mg PO DAILY #1 tab 02/26/19 03/15/19 Rx cephalexin [Keflex] 500 mg PO BID #7 cap 03/09/19 03/15/19 Rx furosemide 40 mg DAILY 03/09/19 03/15/19 History Lantus Solostar U-100 Insulin See Rx Instructions .ROUTE .COMPLEX 03/15/19 03/15/19 History doxycycline hyclate 100 mg PO BID 03/15/19 03/15/19 History Allergies Allergy/AdvReac Type Severity Reaction Status Date / Time No Known Allergies Allergy Verified 03/15/19 11:52 Exam Narrative Exam Narrative: General: Obese middle-aged male who looks much more lethargic than his baseline, arousable to verbal stimuli, but cannot stay awake long enough to say a sentence Neurological: A&Ox1, lethargic, no obvious focal deficits Psychiatric: difficult to assess due to mental status Skin: BLE venous stasis; R tibial surface with a wound closed steri strips - appears to be healing well, no evidence of infection. HEENT: Atraumatic, normocephalic, EOMI, MMM, oropharyngeal exam difficult while wearing BiPAP, no goiter or JVD Cardiovascular: RRR, no m/r/g Lungs: Diminished breath sounds B anteriorly Gastrointestinal: soft, nontender, nondistended; + ostomy Genitourinary: deferred Extremities: no pretibial edema, but he does have some dependent edema in his B calves, R>L; no wounds on B feet - s/p amputation of R great toe. Results Imaging Additional studies: CXR: Findings consistent with CHF, little interval change from March 09. Superimposed pneumonitis not specifically excluded on the basis of this examination. EKG: NSR, HR 66, no acute ischemia Labs Result diagrams: 03/15/19 10:47 03/15/19 10:47 Labs: Laboratory Results - last 24 hr 03/15/19 03/15/19 03/15/19 10:47 10:47 10:47 WBC 10.01 RBC 4.18 L Hgb 9.1 L Hct 34.3 L MCV 82.1 MCH 21.8 L MCHC 26.5 L RDW 15.7 H Plt Count 229 MPV 9.3 Immature Gran % 0.3 Neutrophils % 89.1 Lymphocytes % 2.9 Monocytes % 6.2 Eosinophils % 1.3 Basophils % 0.2 Absolute Neutrophils 8.92 H Absolute Lymphocytes 0.29 L Absolute Monocytes 0.62 Absolute Eosinophils 0.13 Absolute Basophils 0.02 PT INR APTT Sample Site pCO2 pO2 O2 Saturation ABG pH ABG HCO3 ABG Total CO2 ABG Base Excess VBG pH VBG pCO2 VBG pO2 VBG HCO3 VBG Total CO2 VBG O2 Saturation VBG Base Excess Oxygen Liter Flow FiO2 Sodium 148 H Potassium 4.6 D Chloride 108 H Carbon Dioxide 36.5 H Anion Gap 3.5 BUN 38 H Creatinine 1.98 H Estimated GFR/1.73 m2 34.77 Glucose 151 H Lactate 0.7 Calcium 9.4 Magnesium 2.0 Total Bilirubin 0.4 AST 8 L ALT 11 L Alkaline Phosphatase 110 Troponin I < 0.05 NT-Pro-B Natriuret Pep 1875 H Total Protein 6.5 Albumin 2.6 L TSH 0.60 Urine Color Urine Clarity Urine pH Ur Specific [place] Urine Protein Urine Ketones Urine Blood Urine Nitrite Urine Bilirubin Urine Urobilinogen Ur Leukocyte Esterase Urine RBC Urine WBC Ur Epithelial Cells Urine Crystals Urine Bacteria Urine Mucus Ur Culture Indicated? Urine Glucose 03/15/19 03/15/19 03/15/19 10:47 10:47 12:25 WBC RBC Hgb Hct MCV MCH MCHC RDW Plt Count MPV Immature Gran % Neutrophils % Lymphocytes % Monocytes % Eosinophils % Basophils % Absolute Neutrophils Absolute Lymphocytes Absolute Monocytes Absolute Eosinophils Absolute Basophils PT 10.7 INR 1.1 APTT 25.5 Sample Site Right radial pCO2 72 H* pO2 64 L O2 Saturation 94 ABG pH 7.30 L ABG HCO3 35 H ABG Total CO2 34 H ABG Base Excess 8.7 H VBG pH 7.26 L VBG pCO2 79 H* VBG pO2 57 H VBG HCO3 36 H VBG Total CO2 35 H VBG O2 Saturation 89 H VBG Base Excess 8.6 H Oxygen Liter Flow Bipap 10/5 FiO2 30 Sodium Potassium Chloride Carbon Dioxide Anion Gap BUN Creatinine Estimated GFR/1.73 m2 Glucose Lactate Calcium Magnesium Total Bilirubin AST ALT Alkaline Phosphatase Troponin I NT-Pro-B Natriuret Pep Total Protein Albumin TSH Urine Color Urine Clarity Urine pH Ur Specific [place] Urine Protein Urine Ketones Urine Blood Urine Nitrite Urine Bilirubin Urine Urobilinogen Ur Leukocyte Esterase Urine RBC Urine WBC Ur Epithelial Cells Urine Crystals Urine Bacteria Urine Mucus Ur Culture Indicated? Urine Glucose 03/15/19 12:30 WBC RBC Hgb Hct MCV MCH MCHC RDW Plt Count MPV Immature Gran % Neutrophils % Lymphocytes % Monocytes % Eosinophils % Basophils % Absolute Neutrophils Absolute Lymphocytes Absolute Monocytes Absolute Eosinophils Absolute Basophils PT INR APTT Sample Site pCO2 pO2 O2 Saturation ABG pH ABG HCO3 ABG Total CO2 ABG Base Excess VBG pH VBG pCO2 VBG pO2 VBG HCO3 VBG Total CO2 VBG O2 Saturation VBG Base Excess Oxygen Liter Flow FiO2 Sodium Potassium Chloride Carbon Dioxide Anion Gap BUN Creatinine Estimated GFR/1.73 m2 Glucose Lactate Calcium Magnesium Total Bilirubin AST ALT Alkaline Phosphatase Troponin I NT-Pro-B Natriuret Pep Total Protein Albumin TSH Urine Color Yellow Urine Clarity Sl cloudy Urine pH 6.0 Ur Specific [place] 1.020 Urine Protein 100 H Urine Ketones Negative Urine Blood Small H Urine Nitrite Negative Urine Bilirubin Negative Urine Urobilinogen 0.2 Ur Leukocyte Esterase Large H Urine RBC Not Applicable Urine WBC >50 H Ur Epithelial Cells Not Applicable Urine Crystals Not Applicable Urine Bacteria Not Applicable Urine Mucus Not Applicable Ur Culture Indicated? Yes Urine Glucose Negative Last Vital Signs Temp 37.3 C 03/15/19 10:40 Pulse 66 03/15/19 13:32 Resp 21 03/15/19 13:30 BP 143/64 H 03/15/19 13:32 Pulse Ox 96 03/15/19 13:01
[2019-03-15] MEDS: VANCOMYCIN 2,000 MG in Normal Saline 500 ML 250 MG IVPB (13:43)
[2019-03-15 14:07] LABS: Troponin I < 0.05 ng/Ml (<0.06)
[2019-03-15] MEDS: Normal Saline Flush 10 ML SYR IVP ×3 (15:17→17:46)
[2019-03-15] MEDS: Pantoprazole 40 MG VIAL IVP (15:47)
[2019-03-15] MEDS: Hydrocortisone SOD SUC. 100 MG VIAL 50 MG IVP (17:45)
[2019-03-15] MEDS: PIPERACILLIN/TAZO 3.375 GM in Normal Saline 50 ML IVPB (17:46)
[2019-03-15] MEDS: Ascorbic Acid 500 MG TAB 250 MG PO (19:58)
[2019-03-15] MEDS: cloNIDine 0.1 MG TAB PO (19:58)
[2019-03-15] MEDS: Acetaminophen 325 MG TAB 1000 MG PO (19:59)
[2019-03-15] MEDS: Apixaban 5 MG TAB PO (19:59)
[2019-03-15] MEDS: Lactobacillus Acidophilus CAP 1 CAP PO (19:59)
[2019-03-15] MEDS: Sodium Bicarbonate 650 MG TAB PO (19:59)
[2019-03-15] MEDS: Gabapentin 300 MG CAP PO (19:59)
[2019-03-15] MEDS: Terazosin 2 MG CAP 4 MG PO (19:59)
[2019-03-15] MEDS: Ferrous Sulfate 325 MG TAB PO (20:01)
[2019-03-15] MEDS: Insulin Aspart 300 UNITS/3 ML PEN SC (21:28)
[2019-03-15] MEDS: Magnesium Chloride 64 MG TABCR PO (21:28)
[2019-03-16] VITALS (153 sets, daily range): BP systolic 135–176; BP diastolic 56–86; PULSE 54–91; RESP 1–98; TEMP 36.6–37.3; O2SAT 16–100
[2019-03-16] MEDS: Hydrocortisone SOD SUC. 100 MG VIAL 50 MG IVP ×5 (01:36→23:59)
[2019-03-16] MEDS: PIPERACILLIN/TAZO 3.375 GM in Normal Saline 50 ML IVPB ×4 (01:36→19:01)
[2019-03-16] MEDS: Albuterol/Ipratropium 3 ML UPD VIAL UPD ×3 (05:38→20:00)
[2019-03-16] MEDS: Levothyroxine 25 MCG TAB 12.5 MCG PO (06:20)
[2019-03-16 07:03] LABS: Abs Immature Grans 0.02 k/cumm (0.0-0.09); Absolute Basophil Count 0.02 k/cumm (0.0-0.2); Absolute Eosinophil Count 0.03 k/cumm (0.0-0.7); Absolute Lymphocyte Count 0.42 k/cumm (1.2-3.4); Absolute Monocyte Count 0.23 k/cumm (0.11-0.7); Basophils % 0.3; Eosinophils % 0.5; HCT 34.5 % (40.0-50.0); HGB 9.3 g/dL (13.5-17.5); Immature Grans % 0.3 %; Lymphocytes % 6.4; Mean Corpuscular Hemoglobin 21.5 pg (27.0-33.0); Mean Corpuscular Volume 79.9 fL (80-95); Mean Platelet Volume 10.3 fL (8.0-11.0); Monocytes % 3.5; Platelet Count 277 x1000/uL (130-400); RBC 4.32 m/cumm (4.50-6.00); RBC Distribution Width 15.7 % (11.8-14.1)
[2019-03-16 07:07] LABS: Anion Gap 4.4 mmol/L (3-11); BUN 37 mg/dL (7-18); CO2 36.6 mmol/L (21.0-32.0); CREATININE 2.03 mg/dL (0.70-1.30); Chloride 107 mmol/L (98-107); Estimated GFR 33.78 (mL/min/1.73m2); Glucose 201 mg/dL (74-106); Potassium 3.8 mmol/L (3.5-5.1); Sodium 148 mmol/L (136-145)
[2019-03-16 07:09] LABS: Absolute Neutrophil Count 5.87 k/cumm (1.2-6.7)
[2019-03-16] MEDS: Multivitamin w/Minerals TAB 1 TAB PO (07:57)
[2019-03-16] MEDS: Terazosin 2 MG CAP 4 MG PO ×2 (07:57→19:51)
[2019-03-16] MEDS: Sodium Bicarbonate 650 MG TAB PO ×3 (07:57→19:54)
[2019-03-16] MEDS: Venlafaxine 37.5 MG CAPCR 112.5 MG PO (07:57)
[2019-03-16] MEDS: Gabapentin 300 MG CAP PO ×3 (07:58→19:52)
[2019-03-16] MEDS: Acetaminophen 500 MG TAB 1000 MG PO ×3 (07:58→19:53)
[2019-03-16] MEDS: predniSONE 20 MG TAB PO (07:59)
[2019-03-16] MEDS: amLODIPine 5 MG TAB 10 MG PO (07:59)
[2019-03-16] MEDS: Ascorbic Acid 500 MG TAB 250 MG PO ×2 (07:59→19:54)
[2019-03-16] MEDS: Apixaban 5 MG TAB PO ×2 (07:59→19:53)
[2019-03-16] MEDS: Cetirizine 10 MG TAB PO (07:59)
[2019-03-16] MEDS: cloNIDine 0.1 MG TAB PO ×3 (08:00→19:54)
[2019-03-16] MEDS: Ferrous Sulfate 325 MG TAB PO ×2 (08:00→19:55)
[2019-03-16] MEDS: Cyanocobalamin 500 MCG TAB 1000 MCG PO (08:00)
[2019-03-16] MEDS: Lactobacillus Acidophilus CAP 1 CAP PO ×3 (08:00→19:52)
[2019-03-16] MEDS: Insulin Aspart 300 UNITS/3 ML PEN SC ×4 (08:03→23:04)
--- NOTE | 2019-03-16 08:05 | INITIAL_ITS ---
- If Service Date Differs Date of service: 03/16/19 Time of Service: 08:05 Care Management Initial Assess REASON FOR HOSPITALIZATION:: Toxic metabolic encephalopathy, CHF, suspected pneumonia PAST MEDICAL HISTORY/PAST SURGICAL HISTORY:: Medical History: Acromegaly (Chronic). Acute on chronic kidney failure (Resolved). Adrenal insufficiency (Chronic). Ambulatory dysfunction (Chronic). Anemia (Chronic). Atrial flutter, paroxysmal (Chronic). Back pain (Chronic 06/21/13). CAD (coronary artery disease) (Chronic). Cardiopulmonary arrest with successful resuscitation (Resolved). Cholelithiasis (Chronic). Chronic anxiety (Chronic). Chronic bipolar disorder (Chronic). a. With history of psychosis. Chronic cholecystitis (Chronic). Chronic insomnia (Chronic). Chronic pain (Chronic). On both Methadone and Fentanyl as well as Ultram and Naproxen. CKD (chronic kidney disease) (Chronic). Complicated UTI (urinary tract infection) (Resolved). Diabetes mellitus (Chronic). Diabetic foot ulcer (Acute). Diabetic ulcer of toe associated with diabetes mellitus due to underlying condition, with bone involvement without evidence of necrosis (Inactive). 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 (Resolved). Dyslipidemia (Chronic). Elevated troponin I level (Resolved). Endocarditis due to Staphylococcus (Resolved). Heme positive stool (Resolved). Hemorrhagic cystitis (Chronic). Hyperkalemia (Resolved). Hypertension (Chronic). Hypomagnesemia (Chronic). Hypothyroidism (Chronic). Impaired mobility and ADLs (Chronic). Inability to get out of bed (Chronic 06/21/13). Lactic acidosis (Resolved). MRSA bacteremia (Resolved). Obesity (Chronic). a. Obesity though he has had significant weight loss since last seen. Osteoarthritis of both knees (Chronic). Severe. a. [id number] bilateral knees. 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 2 diabetes mellitus (Resolved). Palliative care encounter (Chronic). DObbertin. Pedal edema (Chronic). Poor self care (Chronic 06/21/13). Poorly controlled type 2 diabetes mellitus with circulatory disorder (Chronic). Pulmonary hypertension (Chronic). Rheumatoid arthritis (Chronic). Sepsis (Resolved). Septic arthritis of elbow, right (Inactive). Toxic metabolic encephalopathy (Resolved). Ulcerative colitis (Chronic). UTI (urinary tract infection) (Resolved). Surgical History . Arthroplasty of knee (Resolved 03/18/12). irrigation and lavage right. Fracture, Open Treatment (Resolved). 06/06/17[facility] [place] S/P ORIF RIGHT DISTAL HUMERUS FRACTURE. History of insertion of T-tube into biliary tract (Chronic). S/P colectomy (Chronic) PREVIOUS FUNCTIONAL STATUS/SOCIAL/FAMILY SUPPORTS:: Brendan is a jail resident at the [facility] facility in [place] and requires assistance w ith all ADLs. Brendan has a sister, Lian Hardy (P#[phone]) who lives in [facility] but they have limited contact. They do speak via phone every couple of weeks. he also has numerous nieces and nephews but states he rarely sees them. His sister is his only identified family support. Brendan enjoys reading and watching TV. CURRENT FUNCTIONAL STATUS:: Brendan is resting, minimal enagement today. Per report he did eat and was able to be off bipap today. Brendan continues on IV abx. called from the [facility] and she would like to see if Brendan would qualify for CPAP or BIPAP to be ordered so that he could have it at the facility. Provider is concerned that he would not tolerate a sleep study and would benefit from having the device at the [facility]. CM will follow up with provider and RT. ADVANCE DIRECTIVES:: COLST on file Has patient been provided with information about the portal?: Yes Did the patient sign up for the portal?: No CODE STATUS:: Full Code INSURANCE COVERAGE / FINANCIAL ISSUES:: Medicare. Medicaid CURRENT HOME/COMMUNITY SERVICES/EQUIPMENT:: Brendan is a resident at the [facility] and all of his care is managed by the staff there. PRIMARY CARE PHYSICIAN:: POTENTIAL DISCHARGE NEEDS:: Discharge follow up with provider at the [facility], referral for BIPAP and RT support. Transportation back to the [facility] coordianted by CM when ready. PATIENT/FAMILY EDUCATION NEEDS:: Discharge education, limitations and follow up plan of care including, report to the [facility]. ANTICIPATED BARRIERS TO DISCHARGE:: None TRANSPORTATION:: Via RCT W/C coordinated by CM PLAN:: Brendan will return to the [facility] when medically ready, CM to review with provider and RT to determine if he could have assisted device to assist his breathing overnight. CM will continue to provide ongoing support to patient discharge planning needs.
--- NOTE | 2019-03-16 08:31 | W.PM.PROGNOT ---
Date of Service Date of service: 03/16/19 Time of Service: 10:48 Assessment and Plan Assessment and plan (1) Acute on chronic respiratory failure with hypoxia and hypercapnia: Status: Acute Assessment and plan: Improving. Now off of BiPAP, on 2L of NC. Multifactorial, due to combined diastolic and R-sided CHF in acute exacerbation as well as likely pneumonia. CXR better today. Continue antibiotics (vancomycin, zosyn day 2), stress dose steroids, diuresis. Keep in ICU. (2) Pneumonia: Status: Acute Assessment and plan: As above (3) Acute on chronic diastolic heart failure: Status: Acute Assessment and plan: As above. Improved since yesterday per CXR. Continue diuresis. Monitor I/O's, daily weights. Last echo in 05/2018. I heard a murmur today. Will repeat echo. (4) UTI (urinary tract infection): Status: Acute Assessment and plan: Present on admission. Cx with GNR, gram positive vijay. Sensitivities pending. Continue vancomycin/zosyn day 2. Await culture results. (5) Toxic metabolic encephalopathy: Status: Acute Assessment and plan: With slight improvement, but definitely not yet at baseline. Await culture results to help raheem antibiotics. Treat respiratory failure. Normal part of Brendan's presentation whenever he is adrenally insufficient, though this time CO2 retention could also be contributing. (6) Acute adrenal insufficiency: Status: Acute Assessment and plan: Continue stress dose steroids at current dose. (7) Pulmonary hypertension: Status: Chronic Assessment and plan: Diurese; monitor respiratory status. Provide BiPAP prn (8) Atrial flutter, paroxysmal: Status: Chronic Assessment and plan: Continue anticoagulation with eliquis. (9) Poorly controlled type 2 diabetes mellitus with circulatory disorder: Status: Chronic Assessment and plan: Consider resuming long acting insulin today depending on BG's and patient's po intake. (10) Discharge planning issues: Status: Acute Assessment and plan: Full code Keep in ICU (11) DVT prophylaxis: Status: Acute Assessment and plan: On therapeutic eliquis. Subjective Subjective Interval history since last seen: Off bipap until 3 am - 2L; replaced on bipap at 3 am - 6 am; now off of it; 98% on 2L. Easily arousable this morning, but falls asleep after answering 1-2 questions. He denies dizziness, chest pain, shortness of breath, nausea, vomiting. States he feels really tired. SR in 60's all night. 130-170 SBP. 152/64 this am. Feed himself this morning.. Put out >2500 cc yesterday. Exam Narrative Exam Narrative: General: obese male, laying at a 30 degree angle, lethargic, arousable, falls promptly back asleep, recognizes me, on NC HEENT: EOMI, MMM Heart: RRR, +NUVIA in right 2nd intercostal space Lungs: Diminished breath sounds B anteriorly Abdomen: soft, nontender, nondistended Extremities: wearing inflatable heel protectors, no obvious edema. Objective Objective Clinical Data: Abnormal lab results 03/15/19 03/15/19 03/15/19 Range/Units 10:47 10:47 10:47 RBC 4.18 L (4.50-6.00) m/cumm Hgb 9.1 L (13.5-17.5) g/dL Hct 34.3 L (40.0-50.0) % MCV (80-95) fL MCH 21.8 L (27.0-33.0) pg MCHC 26.5 L (32.0-36.0) g/dL RDW 15.7 H (11.8-14.1) % Absolute Neutrophils 8.92 H (1.2-6.7) k/cumm Absolute Lymphocytes 0.29 L (1.2-3.4) k/cumm pCO2 (34-47) mmHg pO2 (83-108) mmHg ABG pH (7.35-7.45) ABG HCO3 (22-28) mmol/L ABG Total CO2 (22-29) mmol/L ABG Base Excess (-3-3) mmol/L VBG pH 7.26 L (7.35-7.45) VBG pCO2 79 H* (34-47) mm/Hg VBG pO2 57 H (28-44) mm/Hg VBG HCO3 36 H (22-28) mmol/L VBG Total CO2 35 H (22-29) mmol/L VBG O2 Saturation 89 H (70-80) % VBG Base Excess 8.6 H (-3-3) mmol/L Sodium 148 H (136-145) mmol/L Chloride 108 H (98-107) mmol/L Carbon Dioxide 36.5 H (21.0-32.0) mmol/L BUN 38 H (7-18) mg/dL Creatinine 1.98 H (0.70-1.30) mg/dL Glucose 151 H (74-106) mg/dL AST 8 L (15-37) U/L ALT 11 L (16-63) U/L NT-Pro-B Natriuret Pep 1875 H (<300) pg/mL Albumin 2.6 L (3.4-5.0) g/dL Urine Protein (Negative) mg/dL Urine Blood (Negative) Ur Leukocyte Esterase (Negative) Urine WBC (0-5) HPF 03/15/19 03/15/19 03/16/19 Range/Units 12:25 12:30 06:00 RBC (4.50-6.00) m/cumm Hgb (13.5-17.5) g/dL Hct (40.0-50.0) % MCV (80-95) fL MCH (27.0-33.0) pg MCHC (32.0-36.0) g/dL RDW (11.8-14.1) % Absolute Neutrophils (1.2-6.7) k/cumm Absolute Lymphocytes (1.2-3.4) k/cumm pCO2 72 H* (34-47) mmHg pO2 64 L (83-108) mmHg ABG pH 7.30 L (7.35-7.45) ABG HCO3 35 H (22-28) mmol/L ABG Total CO2 34 H (22-29) mmol/L ABG Base Excess 8.7 H (-3-3) mmol/L VBG pH (7.35-7.45) VBG pCO2 (34-47) mm/Hg VBG pO2 (28-44) mm/Hg VBG HCO3 (22-28) mmol/L VBG Total CO2 (22-29) mmol/L VBG O2 Saturation (70-80) % VBG Base Excess (-3-3) mmol/L Sodium 148 H (136-145) mmol/L Chloride (98-107) mmol/L Carbon Dioxide 36.6 H (21.0-32.0) mmol/L BUN 37 H (7-18) mg/dL Creatinine 2.03 H (0.70-1.30) mg/dL Glucose 201 H (74-106) mg/dL AST (15-37) U/L ALT (16-63) U/L NT-Pro-B Natriuret Pep (<300) pg/mL Albumin (3.4-5.0) g/dL Urine Protein 100 H (Negative) mg/dL Urine Blood Small H (Negative) Ur Leukocyte Esterase Large H (Negative) Urine WBC >50 H (0-5) HPF 03/16/19 Range/Units 06:00 RBC 4.32 L (4.50-6.00) m/cumm Hgb 9.3 L (13.5-17.5) g/dL Hct 34.5 L (40.0-50.0) % MCV 79.9 L (80-95) fL MCH 21.5 L (27.0-33.0) pg MCHC 27.0 L (32.0-36.0) g/dL RDW 15.7 H (11.8-14.1) % Absolute Neutrophils (1.2-6.7) k/cumm Absolute Lymphocytes 0.42 L (1.2-3.4) k/cumm pCO2 (34-47) mmHg pO2 (83-108) mmHg ABG pH (7.35-7.45) ABG HCO3 (22-28) mmol/L ABG Total CO2 (22-29) mmol/L ABG Base Excess (-3-3) mmol/L VBG pH (7.35-7.45) VBG pCO2 (34-47) mm/Hg VBG pO2 (28-44) mm/Hg VBG HCO3 (22-28) mmol/L VBG Total CO2 (22-29) mmol/L VBG O2 Saturation (70-80) % VBG Base Excess (-3-3) mmol/L Sodium (136-145) mmol/L Chloride (98-107) mmol/L Carbon Dioxide (21.0-32.0) mmol/L BUN (7-18) mg/dL Creatinine (0.70-1.30) mg/dL Glucose (74-106) mg/dL AST (15-37) U/L ALT (16-63) U/L NT-Pro-B Natriuret Pep (<300) pg/mL Albumin (3.4-5.0) g/dL Urine Protein (Negative) mg/dL Urine Blood (Negative) Ur Leukocyte Esterase (Negative) Urine WBC (0-5) HPF Vital Signs Temperature 37.1 C 03/16/19 04:20 Temperature Source Temporal Artery Scan 03/16/19 04:20 Pulse 61 03/16/19 08:00 Pulse 62 03/16/19 08:10 Respiratory Rate 18 03/16/19 08:10 Respiratory Effort Non-Labored 03/16/19 04:20 Respiratory Depth Shallow 03/16/19 04:20 Respiratory Pattern Normal 03/16/19 04:20 Blood Pressure 167/67 H 03/16/19 08:00 Blood Pressure Mean 89 03/16/19 08:00 Blood Pressure Position Supine 03/15/19 19:50 Pulse Oximetry 94 L 03/16/19 08:14 Oxygen Delivery Method Nasal Cannula 03/16/19 08:14 Oxygen Flow Rate 2 03/16/19 08:14 Fraction of Inspired Oxygen (FIO2) 30 03/16/19 08:14 Pain Level 0 03/16/19 07:58 Intake & Output 03/15/19 03/15/19 03/16/19 11:59 23:59 11:59 Intake Total 1390 / 1390 670 / 670 Output Total 2185 / 2185 1625 / 1625 Balance -795 / -795 -955 / -955 Weight 107.592 kg 107.9 kg 107 kg Intake: IV 650 / 650 50 / 50 Oral 740 / 740 620 / 620 Output: Urine 1984 1425 / 1425 Stool 200 / 200 200 / 200 Other: Urine Color Pale Pale Yellow Yellow Urine Appearance Clear Cloudy Sediment Urine Odor None Comment ruiz to gravity. light colored yellow urine. patient refused the ruiz stap Ruiz in place Stool Occult Blood Negative Negative Stool Characteristics Liquid Brown Voiding Methods Urinal Laboratory Results WBC 6.60 k/cumm (4.4-10.8) D 03/16/19 06:00 RBC 4.32 m/cumm (4.50-6.00) L 03/16/19 06:00 Hgb 9.3 g/dL (13.5-17.5) L 03/16/19 06:00 Hct 34.5 % (40.0-50.0) L 03/16/19 06:00 MCV 79.9 fL (80-95) L 03/16/19 06:00 MCH 21.5 pg (27.0-33.0) L 03/16/19 06:00 MCHC 27.0 g/dL (32.0-36.0) L 03/16/19 06:00 RDW 15.7 % (11.8-14.1) H 03/16/19 06:00 Plt Count 277 x1000/uL (130-400) 03/16/19 06:00 MPV 10.3 fL (8.0-11.0) 03/16/19 06:00 Immature Gran % 0.3 % 03/16/19 06:00 Neutrophils % 89.0 03/16/19 06:00 Lymphocytes % 6.4 03/16/19 06:00 Monocytes % 3.5 03/16/19 06:00 Eosinophils % 0.5 03/16/19 06:00 Basophils % 0.3 03/16/19 06:00 Absolute Neutrophils 5.87 k/cumm (1.2-6.7) 03/16/19 06:00 Absolute Lymphocytes 0.42 k/cumm (1.2-3.4) L 03/16/19 06:00 Absolute Monocytes 0.23 k/cumm (0.11-0.7) 03/16/19 06:00 Absolute Eosinophils 0.03 k/cumm (0.0-0.7) 03/16/19 06:00 Absolute Basophils 0.02 k/cumm (0.0-0.2) 03/16/19 06:00 PT 10.7 sec (9.3-11.0) 03/15/19 10:47 INR 1.1 (0.9-1.1) 03/15/19 10:47 APTT 25.5 sec (21.0-31.4) 03/15/19 10:47 Sample Site Right radial 03/15/19 12:25 pCO2 72 mmHg (34-47) H* 03/15/19 12:25 pO2 64 mmHg (83-108) L 03/15/19 12:25 O2 Saturation 94 % (94-98) 03/15/19 12:25 ABG pH 7.30 (7.35-7.45) L 03/15/19 12:25 ABG HCO3 35 mmol/L (22-28) H 03/15/19 12:25 ABG Total CO2 34 mmol/L (22-29) H 03/15/19 12:25 ABG Base Excess 8.7 mmol/L (-3-3) H 03/15/19 12:25 VBG pH 7.26 (7.35-7.45) L 03/15/19 10:47 VBG pCO2 79 mm/Hg (34-47) H* 03/15/19 10:47 VBG pO2 57 mm/Hg (28-44) H 03/15/19 10:47 VBG HCO3 36 mmol/L (22-28) H 03/15/19 10:47 VBG Total CO2 35 mmol/L (22-29) H 03/15/19 10:47 VBG O2 Saturation 89 % (70-80) H 03/15/19 10:47 VBG Base Excess 8.6 mmol/L (-3-3) H 03/15/19 10:47 Oxygen Liter Flow Bipap 10/5 L 03/15/19 12:25 FiO2 30 % 03/15/19 12:25 Sodium 148 mmol/L (136-145) H 03/16/19 06:00 Potassium 3.8 mmol/L (3.5-5.1) 03/16/19 06:00 Chloride 107 mmol/L (98-107) 03/16/19 06:00 Carbon Dioxide 36.6 mmol/L (21.0-32.0) H 03/16/19 06:00 Anion Gap 4.4 mmol/L (3-11) 03/16/19 06:00 BUN 37 mg/dL (7-18) H 03/16/19 06:00 Creatinine 2.03 mg/dL (0.70-1.30) H 03/16/19 06:00 Estimated GFR/1.73 m2 33.78 (mL/min/1.73m2) 03/16/19 06:00 Glucose 201 mg/dL (74-106) H 03/16/19 06:00 Lactate 0.7 mmol/L (0.6-1.4) 03/15/19 10:47 Calcium 9.0 mg/dL (8.5-10.1) 03/16/19 06:00 Magnesium 2.0 mg/dL (1.8-2.4) 03/16/19 06:00 Total Bilirubin 0.4 mg/dL (0.2-1.0) 03/15/19 10:47 AST 8 U/L (15-37) L 03/15/19 10:47 ALT 11 U/L (16-63) L 03/15/19 10:47 Alkaline Phosphatase 110 U/L (46-116) 03/15/19 10:47 Troponin I < 0.05 ng/Ml (<0.06) 03/15/19 13:35 NT-Pro-B Natriuret Pep 1875 pg/mL (<300) H 03/15/19 10:47 Total Protein 6.5 g/dL (6.4-8.2) 03/15/19 10:47 Albumin 2.6 g/dL (3.4-5.0) L 03/15/19 10:47 TSH 0.60 uIU/mL (0.36-3.74) 03/15/19 10:47 Urine Color Yellow (Yellow) 03/15/19 12:30 Urine Clarity Sl cloudy (Clear) 03/15/19 12:30 Urine pH 6.0 (5-8) 03/15/19 12:30 Ur Specific [place] 1.020 (1.005-1.025) 03/15/19 12:30 Urine Protein 100 mg/dL (Negative) H 03/15/19 12:30 Urine Ketones Negative mg/dL (Negative) 03/15/19 12:30 Urine Blood Small (Negative) H 03/15/19 12:30 Urine Nitrite Negative (Negative) 03/15/19 12:30 Urine Bilirubin Negative (Negative) 03/15/19 12:30 Urine Urobilinogen 0.2 EU/dL (Up TO 0.2) 03/15/19 12:30 Ur Leukocyte Esterase Large (Negative) H 03/15/19 12:30 Urine RBC Not Applicable 03/15/19 12:30 Urine WBC >50 HPF (0-5) H 03/15/19 12:30 Ur Epithelial Cells Not Applicable 03/15/19 12:30 Urine Crystals Not Applicable 03/15/19 12:30 Urine Bacteria Not Applicable 03/15/19 12:30 Urine Mucus Not Applicable 03/15/19 12:30 Ur Culture Indicated? Yes 03/15/19 12:30 Urine Glucose Negative mg/dL (Negative) 03/15/19 12:30
[2019-03-16] MEDS: Furosemide 40 MG/4 ML VIAL IVP ×2 (08:42→15:53)
--- NOTE | 2019-03-16 09:03 | DI.RAD_ITS ---
EXAM: XR PORTABLE CHEST AP CLINICAL HISTORY: f/u CHF +/- PNA TECHNIQUE: COMPARISON: XR PORTABLE CHEST AP from 03/15/2019 FINDINGS: Portable AP chest at 0905 hours, compared with prior film March 15 at 1145 hours. Note is again made of cardiomegaly. Bilateral intrapulmonary interstitial infiltrates noted on the previous examin ation are slightly to moderately less prominent on the current study. Pleural effusions are not as c learly visualized. IMPRESSION: Findings consistent with interval improvement in CHF.
--- NOTE | 2019-03-16 09:23 | OTIE_ITS ---
Occupational Therapy Notes Inpatient Occupational Therapy Evaluation Date: 03/15/19 Referring Doctor: Priscila Canela MD OT Orders: Non-urgent: Limited Ability Precautions: Fall Risk, Contact Precautions PATIENT PROFILE/ADMITTING DIAGNOSIS: Pt is a 58 year old male who is well known to OT and has been admitted multiple times to [facility]. He was admitted to [facility] this time for medical management of SOB and was admitted through the ER on 03/15/19. Past Medical History: Medical History Acromegaly (Chronic) Acute on chronic kidney failure (Resolved) Adrenal insufficiency (Chronic) Ambulatory dysfunction (Chronic) Anemia (Chronic) Atrial flutter, paroxysmal (Chronic) Back pain (Chronic 06/21/13) CAD (coronary artery disease) (Chronic) Cardiopulmonary arrest with successful resuscitation (Resolved) Cholelithiasis (Chronic) Chronic anxiety (Chronic) Chronic bipolar disorder (Chronic) a. With history of psychosis. Chronic cholecystitis (Chronic) Chronic insomnia (Chronic) Chronic pain (Chronic) On both Methadone and Fentanyl as well as Ultram and Naproxen. CKD (chronic kidney disease) (Chronic) Complicated UTI (urinary tract infection) (Resolved) Diabetes mellitus (Chronic) Diabetic foot ulcer (Chronic) Diabetic ulcer of toe associated with diabetes mellitus due to underlying condition, with bone involvement without evidence of necrosis (Inactive) 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 (Resolved) Dyslipidemia (Chronic) Elevated troponin I level (Resolved) Endocarditis due to Staphylococcus (Resolved) Heme positive stool (Resolved) Hemorrhagic cystitis (Chronic) Hyperkalemia (Resolved) Hypertension (Chronic) Hypomagnesemia (Chronic) Hypothyroidism (Chronic) Impaired mobility and ADLs (Chronic) Inability to get out of bed (Chronic 06/21/13) Lactic acidosis (Resolved) MRSA bacteremia (Resolved) Obesity (Chronic) a. Obesity though he has had significant weight loss since last seen. Osteoarthritis of both knees (Chronic) Severe. a. [id number] bilateral knees. 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 2 diabetes mellitus (Resolved) Palliative care encounter (Chronic) DObbertin Pedal edema (Chronic) Poor self care (Chronic 06/21/13) Poorly controlled type 2 diabetes mellitus with circulatory disorder (Chronic) Pulmonary hypertension (Chronic) Rheumatoid arthritis (Chronic) Sepsis (Resolved) Septic arthritis of elbow, right (Inactive) Toxic metabolic encephalopathy (Resolved) Toxic metabolic encephalopathy (Resolved) Ulcerative colitis (Chronic) UTI (urinary tract infection) (Resolved) UTI (urinary tract infection) due to Enterococcus (Resolved) Current Functional Limitations: Decreased functional activity tolerance, decreased (I) in ADLs, decreased (B) UE ROM, increased pain in (R) UE decreasing gross and fine motor coordination during ADLs. Social History/Home Situation: Pt resides at [facility]. Pt is well known to OT. He had surgery on his (R) UE to remove a metal plate in his (R) elbow earlier this year. He notes that he has not had PT/OT since last admission and is lacking ROM in his (R) UE and has extreme weakness limiting his (I) in ADLs/IADLs. Equipment owned/DME: FWW which he uses for ambulation, he is a resident of SNF so all other DME are met through the facility. SUBJECTIVE: Pt was laying on the of his bed when OT arrived. He is pleasant and reports that he has gotten significantly worse over the past couple days. OBJECTIVE: General Observation: IV (L) UE, telemetry, T-tube,pt is tired and requires vc at start of session to stay alert and oriented to OT. Mental Status: A&Ox3 Pain: no c/o pain ROM: RUE Shoulder flexion he was unable to perform, Passively to about 60*, elbow flexion to 80*, decreased hand/digit ROM L UE Shoulder flexion ~50*, elbow flexion WFL with hard end feel for PROM STRENGTH: RUE Unable to test shoulder flexion or elbow throughout, grave digger is weak and symmetrical LUE modified testing shoulder/elbow pt is 2/5 throughout grave digger is weak and symmetrical BALANCE: Static sitting Normal Dynamic Sitting Normal Static Standing NT Dynamic Standing NT Eating: Sitting in bed with max (A) opening containers, OT provided min-mod vc for hand to mouth facilitation during eating routine. Pt was able to perform this and required max (A) for cutting food and moving food in reachable placement. OT does recommend that pt use modified eating utensils including utensils with red foam. Pt was able to grasp utensil in (L) hand with thumb, index and MF. OT also recommends that pt use the cup with handles and spout as pt will be able to (I) bring cup to mouth without spilling and with use of straw. SPECIAL TESTS: Daily Activity Limitations Standardized Measure [facility] AM -PAC ?6 clicks? Daily Activity Inpatient Short Form: Raw Score 12 INFORMED CONSENT/EDUCATION: Pt instructed in purpose of OT Consult and plan of care. ASSESSMENT: Patient is a 58-year-old male referred to occupational therapy services for SOB. Patient presents with clinical signs and symptoms consistent with this dx and deconditioning, as demonstrated by the following impairment level findings: Decreased (B) UE ROM, Decreased (B) UE strengthening, decreased functional activity tolerance, decreased (I) in ADLs, decreased functional dynamic simulations, unable to perform (R) UE AROM without pain and discomfort. Limited gross and fine motor control of (L) UE. Impairments are contributing to the following functional limitations: Difficulty performing ADL routine per pt's baseline, decreased functional mobility, decreased gross and fine motor control of (B) UE, decreased functional activity tolerance. OT recommends that pt return to [facility] when medically cleared per MD. AMPAC score 12 Patient is assessed as a Moderate 89550 complexity based on the following: History: See Above Examination: See Above Presentation: Evolving Decision Making: AMPAC score 12 GOALS Goals x1 week in hospital setting 1. Transfers CGA, FWW 2. Dressing: Sitting on side of bed, pt will be able to put (B) UE into the hospital gown mod (A) with min verbal cues. 3. Bathing: Sitting on side of bed pt will be able to wash face, (B) UE and abdomen min (A) and upper legs with min verbal cues. 4. Pt will be able to lift food to mouth during eating routine with good technique and min vc in the sitting position. PLAN OF CARE/TREATMENT PLAN: 1x/day, 5 days/ week x 1week Initiate Occupational Therapy Services for bathing, dressing, grooming, toileting, eating, transfer training. DISCHARGE RECOMMENDATIONS Return to [facility] when medically cleared per MD. Eating Routine- OT recommends built up handles for utensils with red foam and covered cup with handle and spout. TREATMENT TIME/MINUTES/CODES 18276, [id number] 30 minutes (08:15) [facility]
--- NOTE | 2019-03-16 09:58 | W.NUTCONSULT ---
Time of Service: 09:58
[2019-03-16] MEDS: Magnesium Chloride 64 MG TABCR PO ×2 (10:21→23:04)
--- NOTE | 2019-03-16 14:03 | W.NUTCONSULT ---
Date of service: 03/16/19 Time of Service: 14:03 Nutritional Consult ASSESSMENT: 58 year old male admitted with PNA, UTI, Heart failure with chronic adrenal insufficiency, poorly controlled NIDDM, insulin dependent. BMI indicates class 1 obesity. Following CHO diet with excellent intake. DM consult for CDE received/pending. At high nutritional risk in view of obesity, poorly controlled diabetes, CDE to address. To return to the [facility] when stable. Will follow prn. NUTRITIONAL DIAGNOSIS: obesity poorly controlled DM MONITORING AND EVALUATION: weight, po intake Time Spent in Nutritional Counseling and Treatment: 0 time spent face to face
--- NOTE | 2019-03-16 14:25 | W.INDIABCONS ---
Date of service: 03/16/19 Time of Service: 14:25 Diabetes Inpatient Consult DESCRIPTION/ASSESSMENT: Appreciate diabetes consult for Mr. Corley who is well known to all of use from distant outpatient diabetes and frequent inpatient stays. BMI 31 A1c 8.4 Brendan remains on a high dose basal insulin of 135u daily divided in 2 doses. He takes Aspart on a scale not available at this time from home medication list. Blood sugar now at 428mg/dl before lunch taking sensitive insulin correction only. Although Brendan has had weight loss now steady BMI ~31 he appears to be highly insulin resistant requiring high doses of insulin to meet basal needs. 03/12/19 he had a blood sugar of 97mg/dl. INTERVENTION: Suggest addition of basal insulin at least dosed at half his usual insulin. PLAN: Will follow blood sugars and PO intake assessing carbohydrate intake. Time Spent in Nutritional Counseling and Treatment: 0 minutes face to face
--- NOTE | 2019-03-16 15:24 | PHARADMIT ---
Addendum entered by Guido Medina III 03/18/19 14:34: Pharmacy Note Subjective Due to patients history of MRSA, MD wants to treat a full 5 days of Vancomycin. Vancomycin trough due late tonight or at 1300 tomorrow, which would be the last dose if MD stops at 5 days. Trough not entered. Please verify if MD is stopping Vancomycin Objective VS-OK Wgt-108.3 kg SCr-2.23 K+3.4 Mag-18 WBC-7.79 H&H-Plts-OK FSBS-373 BG-280 Assessment IV Steroids continue to be tapered. Zosyn Day#4 continue with Vancomycin Plan Possible discharge tomorrow,back to [facility]. Addendum entered by Guido Medina III 03/17/19 12:20: Pharmacy Note Subjective CHF: 6 liters off since admission, breathing better. Adrenal insufficiency: IV steroids being decreased. (should help with FSBS) Objective VS-OK K+3.7 SCr-2.28 (up), H&H-8.8/32.0 (down) FSBS-423 BG-407 Assessment Continue Vancomycin & Zosyn - Day#3) Plan Continue OT & PT. Repeat Micro, 1 of 4 bottles showed Gram Neg aleah. Original Note: Admission Pharmacy Clinical Review Code Status Full Code Current Weight 107 kg Renally Cleared and Narrow Therapeutic Index Meds CrCl ~50.3 based on adjusted bw QTc Value / Action Taken QTc 419 BP Control, Fever BP 145/63, afebrile Electrolytes reviewed Na 148, K+ 3.8, Mag 2.0 DVT Prophylaxis Eliquis Opiate Usage / Scheduled Bowel Regimen Ordered None, prn Plt/SCr for Heparin / Enoxaparin PLT 227, Scr 2.03 INR for Warfarin H/H stable, WBC/Bands H/H 9.3/34.5, WBC 6.6 Antibiotic appropriateness Zosyn + Vanco Cultures and Sensitivities Urine: gram +, gram -; MRSA negative; Surgical ABX d/c within 24 hr DM control / Insulin Dosing aspart per SS Heart Failure (Check EF%) (ARYA's, B-Block, Diuretics) amlodipine, clonidine, furosemide IV to PO Switch Home Meds Reviewed Home Meds Not Ordered doxy -- but wasn't on upon last dc on 02/26 or 03/09 when in ER so cancelled per MAP, glargine, folic acid Comments Treating for pneumonia + UTI Basal insulin not ordered yet... home dose = 70U in AM, 65U at HS cont Zosyn + Vanco (day 2), stress dose steroids, lasix
[2019-03-16] MEDS: Normal Saline Flush 10 ML SYR IVP ×3 (15:52→23:59)
[2019-03-16] MEDS: Pantoprazole 40 MG VIAL IVP (15:53)
--- NOTE | 2019-03-16 16:58 | IN_ITS ---
Date of service: 03/16/19 Time of Service: 16:38 PT Notes Visit Reasons: TOXIC METABOLIC ENCEPHALOPATHY,CHF,SUSPECT PNEUMON Physical Therapy Inpatient Initial Evaluation Date: 03/16/2019 Referring Doctor: Priscila Canela MD PT Orders: PT CONSULT: Limited ability Precautions: Contact. Fall. Activity as tolerated. Patient Profile/Admitting Diagnosis: 58-year-old male who was admitted to the ED on 03/15/2019 with chief presentation of increased lethargy, increased work of breathing, and altered mental status. Patient is diagnosed with acute on chronic respiratory failure with hypoxia and hypercapnia, pneumonia, acute on chronic diastolic heart failure, urinary tract infection, and toxic metabolic encephalopathy. Referral to physical therapy was made in order to address mobility impairments, weakness, and impaired activity tolerance. PMHX: Medical History Acromegaly (Chronic) Acute on chronic kidney failure (Resolved) Adrenal insufficiency (Chronic) Ambulatory dysfunction (Chronic) Anemia (Chronic) Atrial flutter, paroxysmal (Chronic) Back pain (Chronic 06/21/13) CAD (coronary artery disease) (Chronic) Cardiopulmonary arrest with successful resuscitation (Resolved) Cholelithiasis (Chronic) Chronic anxiety (Chronic) Chronic bipolar disorder (Chronic) a. With history of psychosis. Chronic cholecystitis (Chronic) Chronic insomnia (Chronic) Chronic pain (Chronic) On both Methadone and Fentanyl as well as Ultram and Naproxen. CKD (chronic kidney disease) (Chronic) Complicated UTI (urinary tract infection) (Resolved) Diabetes mellitus (Chronic) Diabetic foot ulcer (Chronic) Diabetic ulcer of toe associated with diabetes mellitus due to underlying condition, with bone involvement without evidence of necrosis (Inactive) 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 (Resolved) Dyslipidemia (Chronic) Elevated troponin I level (Resolved) Endocarditis due to Staphylococcus (Resolved) Heme positive stool (Resolved) Hemorrhagic cystitis (Chronic) Hyperkalemia (Resolved) Hypertension (Chronic) Hypomagnesemia (Chronic) Hypothyroidism (Chronic) Impaired mobility and ADLs (Chronic) Inability to get out of bed (Chronic 06/21/13) Lactic acidosis (Resolved) MRSA bacteremia (Resolved) Obesity (Chronic) a. Obesity though he has had significant weight loss since last seen. Osteoarthritis of both knees (Chronic) Severe. a. [id number] bilateral knees. 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 2 diabetes mellitus (Resolved) Palliative care encounter (Chronic) DObbertin Pedal edema (Chronic) Poor self care (Chronic 06/21/13) Poorly controlled type 2 diabetes mellitus with circulatory disorder (Chronic) Pulmonary hypertension (Chronic) Rheumatoid arthritis (Chronic) Sepsis (Resolved) Septic arthritis of elbow, right (Inactive) Toxic metabolic encephalopathy (Resolved) Toxic metabolic encephalopathy (Resolved) Ulcerative colitis (Chronic) UTI (urinary tract infection) (Resolved) UTI (urinary tract infection) due to Enterococcus (Resolved) Social History/Home Situation: Long-term resident of the [facility]. Patient has had multiple acute care admissions in the past several years. Patient reports that he has not ambulated at the [facility] prior to this admission. Equipment Owned/DME: LT resident Subjective: Patient refused mobility assessment stating that he wanted to conserve his energy for supper. He reports that he has not been walking while at the [facility]. He states that his sitting tolerance is now very much limited. He also states that he cannot guarantee that he will do well with standing activities while here but he will try his best to participate in activities to increase sitting and standing balance/tolerance Objective: General Observation: Resting in bed in initiation of session. Patient is agreeable and smiling throughout session. IV to RUE. Abdominal drain in place. Mental Status: A and O x3 Pain: Complained of pain on his back. ROM: Right Upper Extremity: Shoulder flexion allows 45 degrees. Elbow motion allows WFL. Weak but functional. He has partial opening and partial closing of the hand. Left Upper Extremity: Shoulder flexion allows 50 degrees. Elbow motion WFL. Weak but functional. He has partial opening and partial closing of the hand. Right Lower Extremity: Hip flexors allows less than 90 degrees. Right knee allows -20 degrees extension, 90 degrees flexion. Ankle dorsiflexion allows 0 degrees. Left Lower Extremity: Hip flexors less than 90 degrees. Left knee allows -10 degrees extension, 90 degrees flexion. Ankle dorsiflexion to 0 degrees. Strength: Right Upper Extremity: Shoulder flexors 3-/5. Shoulder abductors 3-/5. Elbow flexors 3-/5. Elbow extensors 3-/5. Left Upper Extremity: Shoulder flexors 3-/5. Shoulder abductors 3-/5. Elbow flexors 3-/5. Elbow extensors 3-/5. Right Lower Extremity: Hip flexors 3-/5. Hip abductors 3-/5. Knee flexors 3-/5. Knee extensors 2-/5. Ankle dorsiflexors 1/5. Ankle plantarflexors 1/5. Left Lower Extremity:Hip flexors 3-/5. Hip abductors 3-/5. Knee flexors 3-/5. Knee extensors 2-/5. Ankle dorsiflexors 1/5. Ankle plantarflexors 1/5. Bed Mobility/Transfers: Refused mobility assessment due to fatigue. Gait: Refused mobility assessment due to fatigue. Balance: Static Sitting: NT Dynamic Sitting: NT Static Standing: NT Dynamic Standing: NT Special Tests: Mobility Limitations Standardized Measure [facility] AM-PAC 6 clicks Basic Mobility Inpatient Short Form: Raw Score: 11 CMS Score: 73% deficit Informed Consent/Education: Patient instructed in purpose of PT consult and plan of care. Assessment: 58-year-old male who was admitted to the ED on 03/15/2019 with chief presentation of increased lethargy, increased work of breathing, and altered mental status. Patient is diagnosed with acute on chronic respiratory failure with hypoxia and hypercapnia, pneumonia, acute on chronic diastolic heart failure, urinary tract infection, and toxic metabolic encephalopathy. Referral to physical therapy was made in order to address mobility impairments, weakness, and impaired activity tolerance. Patient currently demonstrates the following impairment level findings: 1. Severe, global weakness and loss of range of motion 2. Contractures of the right elbow, bilateral knees 3. Decreased activity tolerance 4. Back pain Impairments are contributing to the following functional limitations: 1. Unable to ambulate 2. Decreased activity tolerance 3. Decreased independence with transfers Patient is assessed as Moderate 26833 complexity based on the following: History: 58-year-old male admitted for medical management of pneumonia. Patient has chronic mobility deficits related to his extensive medical history including severe osteoarthritis, DM, acromegaly. Examination: Functional limitations as noted above Presentation: Evolving Decision Making: Moderate complexity 44286 Goals: Goals X1 week 1. Supine-Sit CGA 2. Sit-Supine CGA 3. Sit-Stand minimal assist 4. Stand-Sit minimal assist 5. Bed-Chair minimal assist 6. Chair-Bed minimal assist 7. Minimal assist gait on level surface with use of least restrictive device for at least 50 feet without report of pain nor dyspnea 8. Independent with home exercise program 9. Fair static and dynamic standing balance/tolerance Plan of Care/Treatment Plan: 1x/day, 7 days/week x 1 week. Plan of care has been reviewed with the [employer] providing the service under Physical Therapy direction. Initiate Physical Therapy intervention for strengthening, bed mobility, transfers, gait, stairs, balance training, use of assistive device. DISCHARGE RECOMMENDATIONS: Return to SNF when medically cleared to do so with continued skilling for physical therapy to facilitate achievement of highest functional mobility level. TREATMENT CODE/TIME: 62148 x 18 minutes beginning at 16:38 PM. Thank you very much for this referral. Nona Pena PT, DPT, CLT [facility] Inpatient PT at [facility]
[2019-03-16] MEDS: Insulin Glargine 300 UNITS/3 ML PEN 30 UNITS SC (17:20)
[2019-03-17] VITALS (53 sets, daily range): BP systolic 135–167; BP diastolic 59–78; PULSE 6–79; RESP 8–25; TEMP 36.3–37.6; O2SAT 87–100
[2019-03-17] MEDS: PIPERACILLIN/TAZO 3.375 GM in Normal Saline 50 ML IVPB ×5 (06:05→23:42)
[2019-03-17] MEDS: Hydrocortisone SOD SUC. 100 MG VIAL 50 MG IVP ×3 (06:06→21:51)
[2019-03-17] MEDS: Albuterol/Ipratropium 3 ML UPD VIAL UPD ×5 (06:06→23:43)
[2019-03-17] MEDS: Levothyroxine 25 MCG TAB 12.5 MCG PO (06:06)
[2019-03-17 06:39] LABS: Abs Immature Grans 0.03 k/cumm (0.0-0.09); Absolute Basophil Count 0.01 k/cumm (0.0-0.2); Absolute Eosinophil Count 0.02 k/cumm (0.0-0.7); Absolute Lymphocyte Count 0.51 k/cumm (1.2-3.4); Absolute Monocyte Count 0.41 k/cumm (0.11-0.7); Absolute Neutrophil Count 5.22 k/cumm (1.2-6.7); Basophils % 0.2; Eosinophils % 0.3; HGB 8.8 g/dL (13.5-17.5); Immature Grans % 0.5 %; Lymphocytes % 8.2; Mean Corp. HGB Concentration 27.5 g/dL (32.0-36.0); Mean Corpuscular Hemoglobin 21.6 pg (27.0-33.0); Mean Corpuscular Volume 78.6 fL (80-95); Mean Platelet Volume 9.8 fL (8.0-11.0); Monocytes % 6.6; Neutrophils % 84.2; Platelet Count 297 x1000/uL (130-400); RBC 4.07 m/cumm (4.50-6.00); RBC Distribution Width 15.2 % (11.8-14.1)
[2019-03-17 06:54] LABS: Anion Gap 4.7 mmol/L (3-11); BUN 44 mg/dL (7-18); CO2 38.3 mmol/L (21.0-32.0); CREATININE 2.28 mg/dL (0.70-1.30); Chloride 100 mmol/L (98-107); Estimated GFR 29.55 (mL/min/1.73m2); Glucose 407 mg/dL (74-106); Magnesium 1.9 mg/dL (1.8-2.4); Potassium 3.7 mmol/L (3.5-5.1); Sodium 143 mmol/L (136-145)
[2019-03-17 07:17] LABS: Anisocytosis 1+; Diff Comment RBC Morph Reviewed; Hypochromasia 3+
[2019-03-17 07:18] LABS: Poikilocytes 2+
--- NOTE | 2019-03-17 08:15 | W.PM.PROGNOT ---
Date of Service Date of service: 03/17/19 Time of Service: 12:50 Assessment and Plan Assessment and plan (1) Acute on chronic respiratory failure with hypoxia and hypercapnia: Status: Acute Assessment and plan: Improved significantly. On room air. Multifactorial, due to combined diastolic and R-sided CHF in acute exacerbation as well as likely pneumonia. CXR with improvement yesterday. Continue antibiotics (vancomycin, zosyn day 3), Start to taper stress dose steroids. Switch diuresis to PO. The patient could benefit from BiPAP every night. Arrangements are being made with the [facility]. (2) Pneumonia: Status: Acute Assessment and plan: As above (3) Acute on chronic diastolic heart failure: Status: Acute Assessment and plan: As above. Switch diuresis to PO. Await echo results. (4) UTI (urinary tract infection): Status: Acute Assessment and plan: Present on admission. Cx with GNR, gram positive vijay, <10,000 CFU, but the patient was on antibiotics at the time of culture being done. Clinically better. Continue vancomycin/zosyn day 3. (5) Toxic metabolic encephalopathy: Status: Resolved Assessment and plan: Brendan is 100% back to baseline with treatment of his underlying conditions. (6) Acute adrenal insufficiency: Status: Acute Assessment and plan: Start to taper stress dose steroids. (7) Pulmonary hypertension: Status: Chronic Assessment and plan: Switch diuresis to PO. Needs BiPAP Q HS/with naps. The [facility] will arrange this. Does have known JESSICA and had a sleep study. (8) Atrial flutter, paroxysmal: Status: Chronic Assessment and plan: Continue anticoagulation with eliquis. (9) Poorly controlled type 2 diabetes mellitus with circulatory disorder: Status: Chronic Assessment and plan: BG's in 400's today, partially due to intake of juice, but also because of resolution of adrenal crisis. Long acting insulin resumed. Titrate corrective insulin up. Titrate steroids own. Encourage sugar-free drinks. (10) Discharge planning issues: Status: Acute Assessment and plan: Full code Transfer out of ICU. (11) DVT prophylaxis: Status: Acute Assessment and plan: On therapeutic eliquis. Subjective Subjective Interval history since last seen: Denies dizziness, chest pain, states breathing is much better and getting better by the day, but still GREEN, denies n/v. Only pain he is experiencing is in his Right elbow. He is wondering if a local orthopedic surgeon would consider doing a revision on his elbow here, but not on this admission. He would like for me to send a referral. Sugars high.>400 this am. Was drinking juice, but agrees to watch his sugar intake and switched to sugar-free drinks. On BIPAP from midnight until 5:30 am. States this is the only way he was able to sleep last night. Agrees to wear the BiPAP at the [facility]. States that he had a sleep study 2 years ago. Now on room air. Desats to 70's on room air while asleep only. HR 50-70's. BP 140/60. Diuresing well. Exam Narrative Exam Narrative: General: obese male, sitting up at a side of the bed HEENT: EOMI, MMM Heart: RRR, +NUVIA in right 2nd intercostal space Lungs: CTAB with excellent aeration B Abdomen: soft, nontender, nondistended Extremities: +1 BLE edema, chronic venous stasis dermatitis Objective Objective Clinical Data: Abnormal lab results 03/17/19 03/17/19 Range/Units 06:10 06:10 RBC 4.07 L (4.50-6.00) m/cumm Hgb 8.8 L (13.5-17.5) g/dL Hct 32.0 L (40.0-50.0) % MCV 78.6 L (80-95) fL MCH 21.6 L (27.0-33.0) pg MCHC 27.5 L (32.0-36.0) g/dL RDW 15.2 H (11.8-14.1) % Absolute Lymphocytes 0.51 L (1.2-3.4) k/cumm Carbon Dioxide 38.3 H (21.0-32.0) mmol/L BUN 44 H (7-18) mg/dL Creatinine 2.28 H (0.70-1.30) mg/dL Glucose 407 H D (74-106) mg/dL Vital Signs Temperature 37.6 C H 03/17/19 04:15 Temperature Source Temporal Artery Scan 03/17/19 04:15 Pulse 6 L 03/17/19 04:15 Pulse 77 03/17/19 05:10 Respiratory Rate 22 03/17/19 05:10 Respiratory Effort Non-Labored 03/17/19 04:15 Respiratory Depth Normal 03/17/19 04:15 Respiratory Pattern Normal 03/17/19 04:15 Blood Pressure 157/68 H 03/17/19 00:56 Blood Pressure Mean 87 03/17/19 00:56 Blood Pressure Position Supine 03/17/19 04:15 Pulse Oximetry 94 L 03/17/19 05:10 Oxygen Delivery Method Nasal Cannula 03/17/19 04:15 Oxygen Flow Rate 3 03/17/19 04:15 Fraction of Inspired Oxygen (FIO2) 30 03/17/19 04:10 Pain Level 0 03/17/19 04:15 Intake & Output 03/16/19 03/16/19 03/17/19 11:59 23:59 11:59 Intake Total 720 / 2630 1910 / 2630 350 / 350 Output Total 2625 / 5850 3225 / 5850 1700 / 1700 Balance -1905 / -3220 -1315 / -3220 -1350 / -1350 Weight 107 kg Intake: IV 100 / 450 350 / 450 50 / 50 Oral 620 / 2180 1560 / 2180 300 / 300 Output: Urine 1925 / 4200 2275 / 4200 1000 / 1000 Stool 700 / 1650 950 / 1650 700 / 700 Other: Urine Color Yellow Yellow Yellow Urine Appearance Cloudy Clear Clear Urine Odor None Comment Patient has a UTI. Downing in place draining clear yellow urine. Downing in place. Stool Occult Blood Negative Negative Stool Size Small Moderate Moderate Stool Characteristics Liquid Voiding Methods Indwelling Catheter Laboratory Results WBC 6.20 k/cumm (4.4-10.8) 03/17/19 06:10 RBC 4.07 m/cumm (4.50-6.00) L 03/17/19 06:10 Hgb 8.8 g/dL (13.5-17.5) L 03/17/19 06:10 Hct 32.0 % (40.0-50.0) L 03/17/19 06:10 MCV 78.6 fL (80-95) L 03/17/19 06:10 MCH 21.6 pg (27.0-33.0) L 03/17/19 06:10 MCHC 27.5 g/dL (32.0-36.0) L 03/17/19 06:10 RDW 15.2 % (11.8-14.1) H 03/17/19 06:10 Plt Count 297 x1000/uL (130-400) 03/17/19 06:10 MPV 9.8 fL (8.0-11.0) 03/17/19 06:10 Immature Gran % 0.5 % 03/17/19 06:10 Neutrophils % 84.2 03/17/19 06:10 Lymphocytes % 8.2 03/17/19 06:10 Monocytes % 6.6 03/17/19 06:10 Eosinophils % 0.3 03/17/19 06:10 Basophils % 0.2 03/17/19 06:10 Absolute Neutrophils 5.22 k/cumm (1.2-6.7) 03/17/19 06:10 Absolute Lymphocytes 0.51 k/cumm (1.2-3.4) L 03/17/19 06:10 Absolute Monocytes 0.41 k/cumm (0.11-0.7) 03/17/19 06:10 Absolute Eosinophils 0.02 k/cumm (0.0-0.7) 03/17/19 06:10 Absolute Basophils 0.01 k/cumm (0.0-0.2) 03/17/19 06:10 Differential Comment Rbc morph reviewed 03/17/19 06:10 RBC Morphology See below 03/17/19 06:10 Hypochromasia 3+ 03/17/19 06:10 Poikilocytosis 2+ 03/17/19 06:10 Anisocytosis 1+ 03/17/19 06:10 PT 10.7 sec (9.3-11.0) 03/15/19 10:47 INR 1.1 (0.9-1.1) 03/15/19 10:47 APTT 25.5 sec (21.0-31.4) 03/15/19 10:47 Sample Site Right radial 03/15/19 12:25 pCO2 72 mmHg (34-47) H* 03/15/19 12:25 pO2 64 mmHg (83-108) L 03/15/19 12:25 O2 Saturation 94 % (94-98) 03/15/19 12:25 ABG pH 7.30 (7.35-7.45) L 03/15/19 12:25 ABG HCO3 35 mmol/L (22-28) H 03/15/19 12:25 ABG Total CO2 34 mmol/L (22-29) H 03/15/19 12:25 ABG Base Excess 8.7 mmol/L (-3-3) H 03/15/19 12:25 VBG pH 7.26 (7.35-7.45) L 03/15/19 10:47 VBG pCO2 79 mm/Hg (34-47) H* 03/15/19 10:47 VBG pO2 57 mm/Hg (28-44) H 03/15/19 10:47 VBG HCO3 36 mmol/L (22-28) H 03/15/19 10:47 VBG Total CO2 35 mmol/L (22-29) H 03/15/19 10:47 VBG O2 Saturation 89 % (70-80) H 03/15/19 10:47 VBG Base Excess 8.6 mmol/L (-3-3) H 03/15/19 10:47 Oxygen Liter Flow Bipap 10/5 L 03/15/19 12:25 FiO2 30 % 03/15/19 12:25 Sodium 143 mmol/L (136-145) 03/17/19 06:10 Potassium 3.7 mmol/L (3.5-5.1) 03/17/19 06:10 Chloride 100 mmol/L (98-107) 03/17/19 06:10 Carbon Dioxide 38.3 mmol/L (21.0-32.0) H 03/17/19 06:10 Anion Gap 4.7 mmol/L (3-11) 03/17/19 06:10 BUN 44 mg/dL (7-18) H 03/17/19 06:10 Creatinine 2.28 mg/dL (0.70-1.30) H 03/17/19 06:10 Estimated GFR/1.73 m2 29.55 (mL/min/1.73m2) 03/17/19 06:10 Glucose 407 mg/dL (74-106) H D 03/17/19 06:10 Lactate 0.7 mmol/L (0.6-1.4) 03/15/19 10:47 Calcium 9.0 mg/dL (8.5-10.1) 03/17/19 06:10 Magnesium 1.9 mg/dL (1.8-2.4) 03/17/19 06:10 Total Bilirubin 0.4 mg/dL (0.2-1.0) 03/15/19 10:47 AST 8 U/L (15-37) L 03/15/19 10:47 ALT 11 U/L (16-63) L 03/15/19 10:47 Alkaline Phosphatase 110 U/L (46-116) 03/15/19 10:47 Troponin I < 0.05 ng/Ml (<0.06) 03/15/19 13:35 NT-Pro-B Natriuret Pep 1875 pg/mL (<300) H 03/15/19 10:47 Total Protein 6.5 g/dL (6.4-8.2) 03/15/19 10:47 Albumin 2.6 g/dL (3.4-5.0) L 03/15/19 10:47 TSH 0.60 uIU/mL (0.36-3.74) 03/15/19 10:47 Urine Color Yellow (Yellow) 03/15/19 12:30 Urine Clarity Sl cloudy (Clear) 03/15/19 12:30 Urine pH 6.0 (5-8) 03/15/19 12:30 Ur Specific Gustavus 1.020 (1.005-1.025) 03/15/19 12:30 Urine Protein 100 mg/dL (Negative) H 03/15/19 12:30 Urine Ketones Negative mg/dL (Negative) 03/15/19 12:30 Urine Blood Small (Negative) H 03/15/19 12:30 Urine Nitrite Negative (Negative) 03/15/19 12:30 Urine Bilirubin Negative (Negative) 03/15/19 12:30 Urine Urobilinogen 0.2 EU/dL (Up TO 0.2) 03/15/19 12:30 Ur Leukocyte Esterase Large (Negative) H 03/15/19 12:30 Urine RBC Not Applicable 03/15/19 12:30 Urine WBC >50 HPF (0-5) H 03/15/19 12:30 Ur Epithelial Cells Not Applicable 03/15/19 12:30 Urine Crystals Not Applicable 03/15/19 12:30 Urine Bacteria Not Applicable 03/15/19 12:30 Urine Mucus Not Applicable 03/15/19 12:30 Ur Culture Indicated? Yes 03/15/19 12:30 Urine Glucose Negative mg/dL (Negative) 03/15/19 12:30
[2019-03-17] MEDS: Insulin Glargine 300 UNITS/3 ML PEN 60 UNITS SC ×2 (09:01→20:27)
[2019-03-17] MEDS: Insulin Aspart 300 UNITS/3 ML PEN SC ×4 (09:02→21:07)
[2019-03-17] MEDS: Ascorbic Acid 500 MG TAB 250 MG PO ×2 (09:02→20:33)
[2019-03-17] MEDS: Sodium Bicarbonate 650 MG TAB PO ×3 (09:03→20:32)
[2019-03-17] MEDS: cloNIDine 0.1 MG TAB PO ×3 (09:03→20:31)
[2019-03-17] MEDS: amLODIPine 5 MG TAB 10 MG PO (09:03)
[2019-03-17] MEDS: Lactobacillus Acidophilus CAP 1 CAP PO ×3 (09:03→20:33)
[2019-03-17] MEDS: Cyanocobalamin 500 MCG TAB 1000 MCG PO (09:04)
[2019-03-17] MEDS: Terazosin 2 MG CAP 4 MG PO ×2 (09:04→20:32)
[2019-03-17] MEDS: Venlafaxine 37.5 MG CAPCR 112.5 MG PO (09:04)
[2019-03-17] MEDS: Apixaban 5 MG TAB PO ×2 (09:05→20:31)
[2019-03-17] MEDS: Gabapentin 300 MG CAP PO ×3 (09:05→20:35)
[2019-03-17] MEDS: predniSONE 20 MG TAB PO (09:05)
[2019-03-17] MEDS: Cetirizine 10 MG TAB PO (09:05)
[2019-03-17] MEDS: Ferrous Sulfate 325 MG TAB PO ×2 (09:05→20:32)
[2019-03-17] MEDS: Multivitamin w/Minerals TAB 1 TAB PO (09:05)
[2019-03-17] MEDS: Acetaminophen 500 MG TAB 1000 MG PO ×3 (09:06→20:31)
[2019-03-17] MEDS: Furosemide 40 MG TAB PO ×2 (09:06→16:29)
--- NOTE | 2019-03-17 09:36 | OTTR_ITS ---
Date of service: 03/17/19 Time of Service: 08:40 Occupational Therapy Notes Occupational Therapy Inpatient Treatment Note Date: 03/17/19 PRECAUTIONS: Standard, Fall SUBJECTIVE: Pt was lying in bed when OT arrived. He was agreeable to OT session and RN notes that pt will be going down for testing soon. OBJECTIVE: PAIN:no c/o pain FUNCTIONAL MOBILITY Rolling L/R: (I) Supine-sit: (I) Sit-supine: (I) Sit-stand: (S) Stand-sit: (S) BATHING: Sitting on side of bed with max (A) set up Upper Body: (I) washing face and (B) hands prior to eating EATING: Sitting on side of bed with max (A) opening containers, OT provided no vc today for hand to mouth facilitation during eating routine. Pt was able to perform this and required max (A) for cutting food and moving food in reachable placement. Pt was able to manipulate his cups on his tray and perform use of utensils with increased (I). He was able to drink liquids through a straw without issues. ASSESSMENT/PLAN: Pt was an active participant in todays session. OT discussed with pt that next step is to assess bathing which pt is in agreement with. OT will continue to progress pt's functional (I) towards goals established at initial evaluation. TREATMENT CODES/TIME: 15883, 20 minutes (08:40) DAVID [facility]
--- NOTE | 2019-03-17 11:55 | PT.INTREAT ---
Date of service: 03/17/19 Time of Service: 11:55 PT Notes Visit Reasons: TOXIC METABOLIC ENCEPHALOPATHY,CHF,SUSPECT PNEUMON Inpatient Physical Therapy Treatment Note [facility] Date: 03/17/19 PRECAUTIONS: Fall, activity as tolerated SUBJECTIVE: Brendan is agreeable to participating in PT, he states that he has not been walking much due to the sores on his feet. OBJECTIVE: PAIN: No c/o pain BED MOBILITY/TRANSFERS Sit-stand: Min A x2 from low surface Stand-sit: SBA GAIT Assistive Device: FWW Weight bearing: Full Assist: SBA Distance: 5 steps Patient performed ankle pump exercise while in seated position. ASSESSMENT: Patient tolerated session without complaint. He would benefit from continued gait and transfer training, as well as general conditioning for improved mobility and activity tolerance. PLAN: Continue with PT's POC TREATMENT CODE/TIME: 30 minutes; 71303 x2
[2019-03-17] MEDS: Magnesium Chloride 64 MG TABCR PO ×2 (12:00→21:50)
--- NOTE | 2019-03-17 13:58 | CMPROGNOTE_ITS ---
- If Service Date Differs Date of service: 03/17/19 Time of Service: 13:59 Care Management Progress Note S/O:Brendan remains acute he continues on diuretics. He continues to be on BIPAP, CM is working with RT and the [facility] to determine if he would qualify for ongoing BIPAP support when he returns to the [facility]. Brendan will return to the [facility] when he is medically ready. A:Brendan is a 58 year old male admitted with Toxic metabolic encephalopathy, CHF P:Brendan will return to the [facility] when he is medically ready. Anticipate coordination of BIPAP prior to return to the [facility]. Wheelchair van RCT will need to be coordinated by CM prior to discharge.
--- NOTE | 2019-03-17 15:29 | NUR.NOTE ---
pt transferred from ICU to medsur room 230. Nursing Note:
--- NOTE | 2019-03-17 15:43 | CHAPLAIN ---
Brendan was sitting up in his chair when I visited. He said he is sleeping better at night, and able to stay awake more because of a change in his medication. He seems to be much like his usual self. He told me that this is his usual room when he is here, Room 222, like the old TV show.)We had a pleasant conversation and I left when Brendan received a phone call.
--- NOTE | 2019-03-17 16:24 | PT.INNT ---
Date of service: 03/17/19 Time of Service: 16:24 PT Notes Visit Reasons: TOXIC METABOLIC ENCEPHALOPATHY,CHF,SUSPECT PNEUMON 03/17/2019 Patient not available for afternoon PT session. Will attempt to resume PT services tomorrow morning.
[2019-03-17] MEDS: Normal Saline Flush 10 ML SYR IVP ×3 (16:28→21:51)
[2019-03-17] MEDS: Pantoprazole 40 MG VIAL IVP (16:30)
[2019-03-17 21:04] LABS: Glucose 507 mg/dL (74-106)
[2019-03-17] MEDS: risperiDONE 1 MG TAB 2 MG PO (21:50)
[2019-03-18] VITALS (12 sets, daily range): BP systolic 145–166; BP diastolic 73–78; PULSE 56–64; RESP 1–28; TEMP 36.7–37.1; O2SAT 90–94
[2019-03-18] MEDS: Albuterol/Ipratropium 3 ML UPD VIAL UPD ×3 (06:20→23:31)
[2019-03-18] MEDS: Levothyroxine 25 MCG TAB 12.5 MCG PO (06:20)
[2019-03-18] MEDS: Hydrocortisone SOD SUC. 100 MG VIAL 50 MG IVP (06:20)
[2019-03-18] MEDS: Normal Saline Flush 10 ML SYR IVP ×3 (06:20→16:18)
[2019-03-18] MEDS: PIPERACILLIN/TAZO 3.375 GM in Normal Saline 50 ML IVPB ×4 (06:21→23:29)
[2019-03-18 07:18] LABS: Abs Immature Grans 0.06 k/cumm (0.0-0.09); Absolute Basophil Count 0.01 k/cumm (0.0-0.2); Absolute Eosinophil Count 0.06 k/cumm (0.0-0.7); Absolute Lymphocyte Count 1.03 k/cumm (1.2-3.4); Absolute Monocyte Count 0.52 k/cumm (0.11-0.7); Absolute Neutrophil Count 6.21 k/cumm (1.2-6.7); Basophils % 0.1; Eosinophils % 0.8; HCT 31.7 % (40.0-50.0); Immature Grans % 0.8 %; Lymphocytes % 13.1; Mean Corp. HGB Concentration 28.4 g/dL (32.0-36.0); Mean Corpuscular Hemoglobin 21.7 pg (27.0-33.0); Mean Corpuscular Volume 76.6 fL (80-95); Mean Platelet Volume 9.5 fL (8.0-11.0); Monocytes % 6.6; Neutrophils % 78.6; Platelet Count 326 x1000/uL (130-400); RBC 4.14 m/cumm (4.50-6.00); RBC Distribution Width 15.2 % (11.8-14.1); White Blood Cell Count 7.89 k/cumm (4.4-10.8)
[2019-03-18 07:21] LABS: Anion Gap 6.4 mmol/L (3-11); BUN 49 mg/dL (7-18); CO2 35.6 mmol/L (21.0-32.0); CREATININE 2.23 mg/dL (0.70-1.30); Calcium 8.6 mg/dL (8.5-10.1); Chloride 99 mmol/L (98-107); Estimated GFR 30.31 (mL/min/1.73m2); Glucose 280 mg/dL (74-106); Magnesium 1.8 mg/dL (1.8-2.4); Potassium 3.4 mmol/L (3.5-5.1); Sodium 141 mmol/L (136-145)
[2019-03-18] MEDS: Ascorbic Acid 500 MG TAB 250 MG PO ×2 (08:15→19:55)
[2019-03-18] MEDS: Acetaminophen 500 MG TAB 1000 MG PO ×3 (08:15→19:54)
[2019-03-18] MEDS: Gabapentin 300 MG CAP PO ×3 (08:16→19:54)
[2019-03-18] MEDS: Multivitamin w/Minerals TAB 1 TAB PO (08:16)
[2019-03-18] MEDS: Apixaban 5 MG TAB PO ×2 (08:16→19:55)
[2019-03-18] MEDS: Ferrous Sulfate 325 MG TAB PO ×2 (08:16→19:54)
[2019-03-18] MEDS: Terazosin 2 MG CAP 4 MG PO ×2 (08:16→19:54)
[2019-03-18] MEDS: amLODIPine 5 MG TAB 10 MG PO (08:16)
[2019-03-18] MEDS: Cyanocobalamin 500 MCG TAB 1000 MCG PO (08:17)
[2019-03-18] MEDS: cloNIDine 0.1 MG TAB PO ×3 (08:17→19:54)
[2019-03-18] MEDS: Furosemide 40 MG TAB PO ×2 (08:17→16:18)
[2019-03-18] MEDS: Venlafaxine 37.5 MG CAPCR 112.5 MG PO (08:17)
[2019-03-18] MEDS: Sodium Bicarbonate 650 MG TAB PO ×3 (08:17→19:54)
[2019-03-18] MEDS: Insulin Aspart 300 UNITS/3 ML PEN SC ×4 (08:17→21:41)
[2019-03-18] MEDS: Lactobacillus Acidophilus CAP 1 CAP PO ×3 (08:17→19:54)
[2019-03-18] MEDS: predniSONE 20 MG TAB PO (08:17)
[2019-03-18] MEDS: Cetirizine 10 MG TAB PO (08:17)
[2019-03-18] MEDS: Insulin Glargine 300 UNITS/3 ML PEN 60 UNITS SC (08:18)
--- NOTE | 2019-03-18 09:30 | OTTR_ITS ---
Date of service: 03/18/19 Time of Service: 08:55 Occupational Therapy Notes Occupational Therapy Inpatient Treatment Note Date: 03/18/19 PRECAUTIONS: Standard, Fall SUBJECTIVE: Pt was lying in bed when OT arrived. He was agreeable to OT session and notes that he is feeling better today. OBJECTIVE: PAIN:no c/o pain FUNCTIONAL MOBILITY Rolling L/R: (I) Supine-sit: (I) Sit-supine: (I) BATHING: sitting on side of bed Upper Body: (I) face, (B) UE and upper chest Lower Body: (I) of (B) LE to thighs OT assessed pts functional ROM which pt demonstrated increased ROM to (R) UE still limited into flexion and extension but functional. He was able to demonstrate increased use of his (L) UE. ASSESSMENT/PLAN: Pt has made significant gains in terms of his functional (I) in ADL/IADL. OT recommends that pt return to [facility] when medically cleared per MD. TREATMENT CODES/TIME: 12350c9, 25 minutes (08:55) Suzanne Javier OTR/L [facility]
[2019-03-18] MEDS: Magnesium Chloride 64 MG TABCR PO ×2 (10:17→21:40)
--- NOTE | 2019-03-18 11:03 | PT.INTREAT ---
Date of service: 03/18/19 Time of Service: 11:03 PT Notes Visit Reasons: TOXIC METABOLIC ENCEPHALOPATHY,CHF,SUSPECT PNEUMON Inpatient Physical Therapy Treatment Note [facility] Date: 03/18/19 PRECAUTIONS: Fall SUBJECTIVE: Brendan is pleasant and agreeable to participating in PT. He reports that he is feeling pretty good today. OBJECTIVE: PAIN: No c/o pain BED MOBILITY/TRANSFERS Supine-sit: I with HOB flat Sit-supine: I with HOB falt Sit-stand: S from elevated bed surface in a.m.; Min A x2 from low chair surface in p.m. Stand-sit: SBA GAIT Assistive Device: FWW Weight bearing: Full Assist: SBA Distance: 15' in both a.m. and p.m. THEREX: Patient completed a LE strengthening program, in a seated position, as per flow sheet. ASSESSMENT: Patient tolerated session well without complaint. He was able to tolerate a progression in gait distance with FWW support and SBA. He would benefit from continued gait and transfer training, as well as general conditioning for improved mobility and activity tolerance. PLAN: Continue with PT's POC TREATMENT CODE/TIME: Session 1: 25 minutes; [id number], 62116 Session 2: 10 minutes; 95933
[2019-03-18] MEDS: Potassium Chloride 20 MEQ TABCR 40 MEQ PO (11:37)
[2019-03-18] MEDS: MAGNESIUM SULFATE 1 GM/100 ML BAG IVPB (11:38)
--- NOTE | 2019-03-18 12:56 | CMPROGNOTE_ITS ---
- If Service Date Differs Date of service: 03/18/19 Time of Service: 12:56 Care Management Progress Note S/O:Brendan remains acute he continues on diuretics. He continues to be on BIPAP, CM is working with RT and the [facility] to determine if he would qualify for ongoing BIPAP support when he returns to the [facility]. Brendan will return to the [facility] when he is medically ready. Anticipate he will be ready on Friday. CM contacted the [facility] and spoke with Magi TEJEDA and left a message for r/t [id number]. Brendan will have an ABG in the morning after he has used the BIPAP over night to confirm settings. A:Brendan is a 58 year old male admitted with Toxic metabolic encephalopathy, CHF P:Brendan will return to the [facility] when he is medically ready. Anticipate coordination of BIPAP prior to return to the [facility]. Wheelchair van RCT will need to be coordinated by CM prior to discharge.
[2019-03-18] MEDS: Hydrocortisone SOD SUC. 100 MG VIAL 25 MG IVP ×2 (13:45→21:40)
[2019-03-18] MEDS: Pantoprazole 40 MG VIAL IVP (16:17)
--- NOTE | 2019-03-18 17:55 | PGE_ITS ---
Date of Service Date of service: 03/18/19 Time of Service: 17:55 Assessment and Plan Assessment and plan (1) Acute on chronic respiratory failure with hypoxia and hypercapnia: Status: Acute Assessment and plan: Improved significantly. On room air. Repeat CXR to assess progress of CHF. Will trial BiPAP again tonight and do an ABG in am to ensure correct settings. Multifactorial, due to combined diastolic and R-sided CHF in acute exacerbation as well as likely pneumonia.. Continue antibiotics (vancomycin, zosyn day 4/5). Continue diuresis. Continue to taper stress dose steroids - transition to prednisone tomorrow. Patient is expected to have BiPAP at SNF on discharge. (2) Pneumonia: Status: Acute Assessment and plan: As above (3) Acute on chronic diastolic heart failure: Status: Acute Assessment and plan: As above. Continue PO lasix. Continue to monitor daily weights/I/O's. EF 60%. No evidence of diastolic dysfunction. Does have pulmonary hypertension with PA pressure of 51 mmHg. Has moderate mitral regurgitation. (4) UTI (urinary tract infection): Status: Acute Assessment and plan: Present on admission. Cx with GNR, gram positive vijay, <10,000 CFU, but the patient was on antibiotics at the time of culture being done. Clinically better. Continue vancomycin/zosyn day 4. Repeat UA tomorrow. We are inquiring if Brendan came to the hospital with a ruiz catheter. If not, we would like to do a voiding trial tonight. (5) Toxic metabolic encephalopathy: Status: Resolved Assessment and plan: Brendan is 100% back to baseline with treatment of his underlying conditions. (6) Acute adrenal insufficiency: Status: Acute Assessment and plan: Continue stress dose steroid taper (7) Pulmonary hypertension: Status: Chronic Assessment and plan: Switch diuresis to PO. Needs BiPAP Q HS/with naps. The [facility] will arrange this. Does have known JESSICA and had a sleep study. (8) Atrial flutter, paroxysmal: Status: Chronic Assessment and plan: Continue anticoagulation with eliquis. (9) Poorly controlled type 2 diabetes mellitus with circulatory disorder: Status: Chronic Assessment and plan: BG's improving with stress dose steroid taper. We are adjusting long acting insulin. (10) Discharge planning issues: Status: Acute Assessment and plan: Full code Can likely discharge patient back to the [facility] tomorrow. (11) DVT prophylaxis: Status: Acute Assessment and plan: On therapeutic eliquis. Subjective Subjective Interval history since last seen: Brendan states he still gets GREEN when moving around. Denies dizziness, chest pain, nausea, and overall feels better. He is on room air. He did not wear the mask throughout the night last night - he could not fall asleep. He'll try again tonight. He is anxious. He is worried that he will just have to come back to the hospital if he leaves here too early. Exam Narrative Exam Narrative: General: obese male, sitting up at a side of the bed, having dinner HEENT: EOMI, MMM Heart: RRR, no murmur appreciated in seated position Lungs: CTAB with excellent aeration B Abdomen: soft, nontender, nondistended Extremities: trace BLE edema, chronic venous stasis dermatitis Objective Objective Clinical Data: Abnormal lab results 03/17/19 03/18/19 03/18/19 Range/Units 20:40 07:00 07:00 RBC 4.14 L (4.50-6.00) m/cumm Hgb 9.0 L (13.5-17.5) g/dL Hct 31.7 L (40.0-50.0) % MCV 76.6 L (80-95) fL MCH 21.7 L (27.0-33.0) pg MCHC 28.4 L (32.0-36.0) g/dL RDW 15.2 H (11.8-14.1) % Absolute Lymphocytes 1.03 L (1.2-3.4) k/cumm Potassium 3.4 L (3.5-5.1) mmol/L Carbon Dioxide 35.6 H (21.0-32.0) mmol/L BUN 49 H (7-18) mg/dL Creatinine 2.23 H (0.70-1.30) mg/dL Glucose 507 H* D 280 H D (74-106) mg/dL Vital Signs Temperature 37.1 C 03/18/19 16:18 Temperature Source Tympanic 03/18/19 16:18 Pulse 57 L 03/18/19 16:18 Pulse Rhythm Regular 03/18/19 16:49 Pulse 57 L 03/17/19 11:43 Respiratory Rate 18 03/18/19 16:18 Respiratory Effort 03/18/19 16:49 Respiratory Depth Shallow 03/18/19 16:49 Respiratory Pattern Normal 03/18/19 16:49 Blood Pressure 156/78 H 03/18/19 16:18 Blood Pressure Mean 83 03/17/19 11:43 Blood Pressure Position Supine 03/17/19 04:15 Pulse Oximetry 94 L 03/18/19 16:55 Oxygen Delivery Method Room Air 03/18/19 16:18 Oxygen Flow Rate 0 03/18/19 16:18 Fraction of Inspired Oxygen (FIO2) 03/18/19 16:55 Pain Level 0 03/18/19 16:18 Comment 03/18/19 16:18 Intake & Output 03/17/19 03/18/19 03/18/19 23:59 11:59 23:59 Intake Total 810 / 2220 2450 / 3410 960 / 3410 Output Total 2950 / 4650 2600 / 4500 1900 / 4500 Balance -2140 / -2430 -150 / -1090 -940 / -1090 Weight 108.3 kg Intake: IV 110 / 470 370 / 370 Oral 700 / 1750 2080 / 3040 960 / 3040 Output: Urine 1750 / 2750 2100 / 3350 1250 / 3350 Stool 1200 / 1900 500 / 1150 650 / 1150 Other: Urine Color Yellow Pale Yellow Yellow Urine Appearance Clear Clear Clear Laboratory Results WBC 7.89 k/cumm (4.4-10.8) 03/18/19 07:00 RBC 4.14 m/cumm (4.50-6.00) L 03/18/19 07:00 Hgb 9.0 g/dL (13.5-17.5) L 03/18/19 07:00 Hct 31.7 % (40.0-50.0) L 03/18/19 07:00 MCV 76.6 fL (80-95) L 03/18/19 07:00 MCH 21.7 pg (27.0-33.0) L 03/18/19 07:00 MCHC 28.4 g/dL (32.0-36.0) L 03/18/19 07:00 RDW 15.2 % (11.8-14.1) H 03/18/19 07:00 Plt Count 326 x1000/uL (130-400) 03/18/19 07:00 MPV 9.5 fL (8.0-11.0) 03/18/19 07:00 Immature Gran % 0.8 % 03/18/19 07:00 Neutrophils % 78.6 03/18/19 07:00 Lymphocytes % 13.1 03/18/19 07:00 Monocytes % 6.6 03/18/19 07:00 Eosinophils % 0.8 03/18/19 07:00 Basophils % 0.1 03/18/19 07:00 Absolute Neutrophils 6.21 k/cumm (1.2-6.7) 03/18/19 07:00 Absolute Lymphocytes 1.03 k/cumm (1.2-3.4) L 03/18/19 07:00 Absolute Monocytes 0.52 k/cumm (0.11-0.7) 03/18/19 07:00 Absolute Eosinophils 0.06 k/cumm (0.0-0.7) 03/18/19 07:00 Absolute Basophils 0.01 k/cumm (0.0-0.2) 03/18/19 07:00 Differential Comment Rbc morph reviewed 03/17/19 06:10 RBC Morphology See below 03/17/19 06:10 Hypochromasia 3+ 03/17/19 06:10 Poikilocytosis 2+ 03/17/19 06:10 Anisocytosis 1+ 03/17/19 06:10 PT 10.7 sec (9.3-11.0) 03/15/19 10:47 INR 1.1 (0.9-1.1) 03/15/19 10:47 APTT 25.5 sec (21.0-31.4) 03/15/19 10:47 Sample Site Cancelled 03/18/19 07:13 pCO2 Cancelled 03/18/19 07:13 pO2 Cancelled 03/18/19 07:13 O2 Saturation Cancelled 03/18/19 07:13 ABG pH Cancelled 03/18/19 07:13 ABG HCO3 Cancelled 03/18/19 07:13 ABG Total CO2 Cancelled 03/18/19 07:13 ABG Base Excess Cancelled 03/18/19 07:13 VBG pH 7.26 (7.35-7.45) L 03/15/19 10:47 VBG pCO2 79 mm/Hg (34-47) H* 03/15/19 10:47 VBG pO2 57 mm/Hg (28-44) H 03/15/19 10:47 VBG HCO3 36 mmol/L (22-28) H 03/15/19 10:47 VBG Total CO2 35 mmol/L (22-29) H 03/15/19 10:47 VBG O2 Saturation 89 % (70-80) H 03/15/19 10:47 VBG Base Excess 8.6 mmol/L (-3-3) H 03/15/19 10:47 Oxygen Liter Flow Cancelled 03/18/19 07:13 FiO2 Cancelled 03/18/19 07:13 Sodium 141 mmol/L (136-145) 03/18/19 07:00 Potassium 3.4 mmol/L (3.5-5.1) L 03/18/19 07:00 Chloride 99 mmol/L (98-107) 03/18/19 07:00 Carbon Dioxide 35.6 mmol/L (21.0-32.0) H 03/18/19 07:00 Anion Gap 6.4 mmol/L (3-11) 03/18/19 07:00 BUN 49 mg/dL (7-18) H 03/18/19 07:00 Creatinine 2.23 mg/dL (0.70-1.30) H 03/18/19 07:00 Estimated GFR/1.73 m2 30.31 (mL/min/1.73m2) 03/18/19 07:00 Glucose 280 mg/dL (74-106) H D 03/18/19 07:00 Lactate 0.7 mmol/L (0.6-1.4) 03/15/19 10:47 Calcium 8.6 mg/dL (8.5-10.1) 03/18/19 07:00 Magnesium 1.8 mg/dL (1.8-2.4) 03/18/19 07:00 Total Bilirubin 0.4 mg/dL (0.2-1.0) 03/15/19 10:47 AST 8 U/L (15-37) L 03/15/19 10:47 ALT 11 U/L (16-63) L 03/15/19 10:47 Alkaline Phosphatase 110 U/L (46-116) 03/15/19 10:47 Troponin I < 0.05 ng/Ml (<0.06) 03/15/19 13:35 NT-Pro-B Natriuret Pep 1875 pg/mL (<300) H 03/15/19 10:47 Total Protein 6.5 g/dL (6.4-8.2) 03/15/19 10:47 Albumin 2.6 g/dL (3.4-5.0) L 03/15/19 10:47 TSH 0.60 uIU/mL (0.36-3.74) 03/15/19 10:47 Urine Color Yellow (Yellow) 03/15/19 12:30 Urine Clarity Sl cloudy (Clear) 03/15/19 12:30 Urine pH 6.0 (5-8) 03/15/19 12:30 Ur Specific Morrison 1.020 (1.005-1.025) 03/15/19 12:30 Urine Protein 100 mg/dL (Negative) H 03/15/19 12:30 Urine Ketones Negative mg/dL (Negative) 03/15/19 12:30 Urine Blood Small (Negative) H 03/15/19 12:30 Urine Nitrite Negative (Negative) 03/15/19 12:30 Urine Bilirubin Negative (Negative) 03/15/19 12:30 Urine Urobilinogen 0.2 EU/dL (Up TO 0.2) 03/15/19 12:30 Ur Leukocyte Esterase Large (Negative) H 03/15/19 12:30 Urine RBC Not Applicable 03/15/19 12:30 Urine WBC >50 HPF (0-5) H 03/15/19 12:30 Ur Epithelial Cells Not Applicable 03/15/19 12:30 Urine Crystals Not Applicable 03/15/19 12:30 Urine Bacteria Not Applicable 03/15/19 12:30 Urine Mucus Not Applicable 03/15/19 12:30 Ur Culture Indicated? Yes 03/15/19 12:30 Urine Glucose Negative mg/dL (Negative) 03/15/19 12:30
--- NOTE | 2019-03-18 18:46 | DI.RAD_ITS ---
EXAM: XR PORTABLE CHEST AP CLINICAL HISTORY: follow up CHF TECHNIQUE: COMPARISON: XR PORTABLE CHEST AP from 03/16/2019 FINDINGS: Supine AP chest was obtained. Heart is enlarged. Slight prominence of pulmonary interstitial markin gs noted, continued interval improvement in CHF since prior study of 03/16. No chai pulmonary edema at this time. Question pleural effusions. PA and lateral chest suggested for follow up. IMPRESSION:
--- NOTE | 2019-03-18 19:26 | DI.VRAD_ITS ---
PROCEDURE INFORMATION: Exam: XR Chest, 1 View Exam date and time: 03/18/2019 6:50 PM Age: 58 years old Clinical indication: Other: Follow up, chf TECHNIQUE: Imaging protocol: XR of the chest Views: 1 view. COMPARISON: CR XR PORTABLE CHEST AP 16/03/2019 09:03 FINDINGS: Lungs: Low lung volumes. Pulmonary vascular congestion. Increased bibasilar reticular markings. Pleural space: Blunted right and left lateral costophrenic angle. Heart/Mediastinum: Cardiomegaly. Vasculature: Increased pulmonary vascular markings in the apices. Bones/joints: Degenerative scoliotic changes of the thoracic spine. IMPRESSION: 1. Cardiomegaly. Pulmonary edema. Bilateral pleural effusions. 2. Hypoventilation with increased interstitial markings at the lung bases and centrally. Dictated and Authenticated by: Ria Sherman MD. Ordering:LACEY Francois MD
[2019-03-18] MEDS: Insulin Glargine 300 UNITS/3 ML PEN 65 UNITS SC (19:55)
[2019-03-18] MEDS: risperiDONE 1 MG TAB 2 MG PO (21:40)
[2019-03-19] VITALS (8 sets, daily range): BP systolic 134–177; BP diastolic 70–85; PULSE 53–86; RESP 1–20; TEMP 36.4–37; O2SAT 90–99
[2019-03-19] MEDS: PIPERACILLIN/TAZO 3.375 GM in Normal Saline 50 ML IVPB (06:22)
[2019-03-19] MEDS: Levothyroxine 25 MCG TAB 12.5 MCG PO (06:22)
[2019-03-19] MEDS: Albuterol/Ipratropium 3 ML UPD VIAL UPD (06:23)
[2019-03-19] MEDS: Hydrocortisone SOD SUC. 100 MG VIAL 25 MG IVP (06:23)
[2019-03-19 07:34] LABS: Absolute Basophil Count 0.03 k/cumm (0.0-0.2); Absolute Eosinophil Count 0.12 k/cumm (0.0-0.7); Absolute Lymphocyte Count 0.89 k/cumm (1.2-3.4); Absolute Monocyte Count 0.53 k/cumm (0.11-0.7); Absolute Neutrophil Count 5.25 k/cumm (1.2-6.7); Basophils % 0.4; Eosinophils % 1.7; HCT 33.5 % (40.0-50.0); HGB 9.3 g/dL (13.5-17.5); Immature Grans % 1.4 %; Lymphocytes % 12.9; Mean Corp. HGB Concentration 27.8 g/dL (32.0-36.0); Mean Corpuscular Hemoglobin 21.2 pg (27.0-33.0); Mean Corpuscular Volume 76.5 fL (80-95); Mean Platelet Volume 9.8 fL (8.0-11.0); Monocytes % 7.7; Neutrophils % 75.9; Platelet Count 332 x1000/uL (130-400); RBC 4.38 m/cumm (4.50-6.00); RBC Distribution Width 15.5 % (11.8-14.1); White Blood Cell Count 6.92 k/cumm (4.4-10.8)
[2019-03-19 07:50] LABS: Anion Gap 5.8 mmol/L (3-11); BUN 56 mg/dL (7-18); CO2 35.2 mmol/L (21.0-32.0); CREATININE 2.53 mg/dL (0.70-1.30); Calcium 8.6 mg/dL (8.5-10.1); Chloride 100 mmol/L (98-107); Glucose 282 mg/dL (74-106); Magnesium 2.1 mg/dL (1.8-2.4); Potassium 3.2 mmol/L (3.5-5.1); Sodium 141 mmol/L (136-145)
[2019-03-19 08:05] LABS: HCO3 38 mmol/L (22-28); pCO2 56 mmHg (34-47); pH 7.43 (7.35-7.45); pO2 51 mmHg (83-108); sO2 87 % (94-98); tCO2 35 mmol/L (22-29)
[2019-03-19 08:07] LABS: BE 13.2 mmol/L (-3-3); FIO2 21 %; Site Right Radial
[2019-03-19] MEDS: Insulin Glargine 300 UNITS/3 ML PEN 65 UNITS SC (08:21)
[2019-03-19] MEDS: Insulin Aspart 300 UNITS/3 ML PEN SC ×2 (08:22→11:56)
[2019-03-19] MEDS: Cetirizine 10 MG TAB PO (08:22)
[2019-03-19] MEDS: Gabapentin 300 MG CAP PO (08:23)
[2019-03-19] MEDS: Multivitamin w/Minerals TAB 1 TAB PO (08:23)
[2019-03-19] MEDS: cloNIDine 0.1 MG TAB PO (08:23)
[2019-03-19] MEDS: Ascorbic Acid 500 MG TAB 250 MG PO (08:23)
[2019-03-19] MEDS: predniSONE 20 MG TAB 40 MG PO (08:23)
[2019-03-19] MEDS: Furosemide 40 MG TAB PO (08:23)
[2019-03-19] MEDS: Cyanocobalamin 500 MCG TAB 1000 MCG PO (08:23)
[2019-03-19] MEDS: Sodium Bicarbonate 650 MG TAB PO (08:23)
[2019-03-19] MEDS: Ferrous Sulfate 325 MG TAB PO (08:24)
[2019-03-19] MEDS: Terazosin 2 MG CAP 4 MG PO (08:24)
[2019-03-19] MEDS: Venlafaxine 37.5 MG CAPCR 112.5 MG PO (08:24)
[2019-03-19] MEDS: Acetaminophen 500 MG TAB 1000 MG PO (08:24)
[2019-03-19] MEDS: Lactobacillus Acidophilus CAP 1 CAP PO (08:25)
[2019-03-19] MEDS: Apixaban 5 MG TAB PO (08:25)
[2019-03-19] MEDS: amLODIPine 5 MG TAB 10 MG PO (08:30)
--- NOTE | 2019-03-19 11:48 | PTTR_ITS ---
Date of service: 03/19/19 Time of Service: 11:48 PT Notes Visit Reasons: TOXIC METABOLIC ENCEPHALOPATHY,CHF,SUSPECT PNEUMON Inpatient Physical Therapy Treatment Note [facility] Date: 03/19/19 PRECAUTIONS: Fall SUBJECTIVE: Brendan is pleasant and agreeable to participating in PT. He states that he will be returning to [facility] at some point today. OBJECTIVE: PAIN: No c/o pain BED MOBILITY/TRANSFERS Supine-sit: I Sit-supine: I Sit-stand: S from elevated bed surface Stand-sit: S GAIT Assistive Device: FWW Weight bearing: Full Assist: SBA Distance: 20' Deviation: SOB THEREX: Patient completed a LE strengthening program, while seated at EOB, as per flow sheet. ASSESSMENT: Patient tolerated session well with complaint of increased LE fatigue with gait training. He was able to tolerate a progression in gait distance with FWW support and SBA. He would benefit from continued gait and transfer training, as well as general conditioning for improved mobility and activity tolerance. PLAN: As per primary PT TREATMENT CODE/TIME: 30minutes; 66028, 70744
[2019-03-19] MEDS: Magnesium Chloride 64 MG TABCR PO (11:56)
[2019-03-19] MEDS: Normal Saline Flush 10 ML SYR IVP (11:57)
[2019-03-19] MEDS: Potassium Chloride 20 MEQ TABCR 40 MEQ PO (12:03)
--- NOTE | 2019-03-19 12:22 | W.PM.DS.N ---
Date of service: 03/19/19 Time of Service: 12:24 DS: Diagnosis Discharge Diagnosis (1) Acute on chronic respiratory failure with hypoxia and hypercapnia: Status: Acute (2) Pneumonia: Status: Resolved (3) Acute on chronic diastolic heart failure: Status: Acute (4) UTI (urinary tract infection): Status: Resolved (5) Toxic metabolic encephalopathy: Status: Resolved (6) Acute adrenal insufficiency: Status: Acute (7) Pulmonary hypertension: Status: Chronic (8) Atrial flutter, paroxysmal: Status: Chronic (9) Poorly controlled type 2 diabetes mellitus with circulatory disorder: Status: Chronic Discharge Plan Disposition Patient Disposition: SNF (LEVEL 1) [facility] Condition: Improving Discharge Details Chief Complaint: SOB Reason For Visit: TOXIC METABOLIC ENCEPHALOPATHY,CHF,SUSPECT PNEUMON Admit Date/Time: 03/15/19 12:20 Admit Provider: Priscila Canela Attending Provider: Priscila Canela Primary Care Provider: Lou Maldonado ED Provider: Ashanti Hayes [facility] Hospital Course: Mr Corley is a 58 year old male with PMHx of chronic steroid dependence for RA and Crohn's disease, with secondary adrenal insufficiency, as well as h/o IDDM2, paroxysmal A flutter on eliquis, and JESSICA, not normally on CPAP/BiPAP, who was admitted to [facility] ICU under the hospitalist service on 03/15/2019 with acute on chronic hypoxic hypercapnic respiratory failure, which was felt to be multifactorial, due to acute on chronic diastolic CHF as well as pulmonary hypertension and likely HCAP. He did come in encephalopathic, had a tripple acid/base d/o with combined respiratory and metabolic acidosis, and had evidence of acute adrenal insufficiency. He was placed on BiPAP, treated with IV diuresis, empiric vancomycin and zosyn, as well as stress dose steroids. With this therapy, by hospital day 3, Brendan did not require oxygen during the day, was back to his baseline mental status, and showed significant improvement on CXR. He has now completed 5 days of IV antibiotics and shows no clinical evidence of residual pneumonia. He was transitioned to PO lasix, but dose will have to be carefully adjusted at the [facility] depending on patient's daily weight. The patient did demonstrate a slight increase in his creatinine (2.53) on the day of discharge which is expected to improve with decreasing the dose of lasix to 40 mg daily. He will need to have a follow up chemistry on 03/22/2019, with results going to his provider at the [facility]. His potassium had required serial repletion as well, and he is getting discharged on 20 meq of potassium daily. Based on our records, Brendan's true Cr may be around 2.3. Cr lower than that may correspond with a hemodiluted state. Meanwhile, Brendan is now agreeable to wear BiPAP and had tolerated it quite well on this hospitalization. We feel that, not only will it help him autodiurese, but it will prevent worsening of his R-sided heart failure and likely prevent future hospitalizations. His settings on discharge are: 12/29 with 1 L bleed in. He should follow up with sleep clinic when able for any adjustments of BiPAP settings. As far as his adrenal insufficiency, he was transitioned to prednisone 40 mg PO daily. This should be tapered down very slowly - by 5 mg every 3-4 days until he is back to his dose of 20 mg PO daily. He completed his antibiotics here. We cannot definitively say whether or not Brendan also had a UTI on presentation - his urine culture grew <10,000 CFU of several organisms, which did not speciate, but it was collected while he was already on antibiotics. We do not feel that the patient requires any more antibiotics at the time of discharge. He is medically stable for discharge back to the [facility] today. Care for patient as well as completion of his discharge summary took 1 hour on the day of discharge. Home Meds and New Rx's Prescriptions: New potassium chloride 20 mEq tablet extended release 20 meq PO DAILY Qty: 10 RF: 0 insulin aspart U-100 100 unit/mL (3 mL) insulin pen 10 unit SC AC Qty: 15 RF: 0 Continued cyanocobalamin (vitamin B-12) 1,000 mcg Tablet 1,000 mcg PO DAILY RF: 0 ferrous sulfate 325 mg (65 mg iron) Tablet 325 mg PO BID Qty: 0 RF: 0 ascorbic acid (vitamin C) [Vitamin C] 250 mg Tablet 1 tab PO BID RF: 0 Centrum Complete 18-400 mg-mcg Tablet 1 tab PO DAILY RF: 0 acidophilus-pectin, citrus 25 million cell -100 mg Tablet 1 cap PO TID Qty: 0 RF: 0 Eliquis 5 mg Tablet 5 mg PO BID Qty: 60 RF: 0 insulin aspart U-100 [Novolog Flexpen U-100 Insulin] 100 unit/mL Insulin Pen See Rx Instructions .ROUTE .COMPLEX Qty: 15 RF: 0 pantoprazole 40 mg Tablet,Delayed Release (Dr/Ec) 40 mg PO DAILY Qty: 60 RF: 0 melatonin 3 mg Tablet Extended Release 6 mg PO HS Qty: 30 RF: 0 sodium bicarbonate 650 mg Tablet 650 mg PO TID Qty: 90 RF: 0 calcium carbonate-vitamin D3 [Calcium 500 + D] 500 mg(1,250mg) -400 unit Tablet 1 tab PO BID RF: 0 clonidine HCl [Catapres] 0.1 mg Tablet 0.1 mg PO TID Qty: 0 RF: 0 acetaminophen [Tylenol] 325 mg tablet 1,000 mg PO TID RF: 0 gabapentin 100 mg capsule 300 mg PO TID RF: 0 terazosin 2 mg Capsule 4 mg PO BID Qty: 0 RF: 0 magnesium chloride [Mag 64] 64 mg Tablet,Delayed Release (Dr/Ec) 64 mg PO BID Qty: 0 RF: 0 venlafaxine [Effexor XR] 37.5 mg Capsule,Extended Release 24hr 112.5 mg PO DAILY RF: 0 Zyrtec 10 mg Capsule 10 mg PO DAILY RF: 0 amlodipine 5 mg tablet 10 mg PO DAILY RF: 0 levothyroxine 25 mcg tablet 12.5 mcg PO DAILY@0600 RF: 0 furosemide 20 mg Tablet 40 mg DAILY RF: 0 Lantus Solostar U-100 Insulin 100 unit/mL (3 mL) insulin pen See Rx Instructions .ROUTE .COMPLEX RF: 0 Changed prednisone 20 mg Tablet See Rx Instructions .ROUTE .COMPLEX Qty: 30 RF: 0 risperidone [Risperdal] 2 mg Tablet 2 mg PO HS Qty: 0 RF: 0 Discontinued cephalexin [Keflex] 500 mg capsule 500 mg PO BID Qty: 7 RF: 0 doxycycline hyclate 100 mg Tablet 100 mg PO BID RF: 0 Discharge Instructions Additional Instructions: Daily weights. BiPAP QHS/with naps. Recheck chemistry on 03/22/2019. Return to the hospital with any fever, bleeding, chest pain, or shortness of breath. Stand Alone Forms: Nursing Discharge Form Referrals: Lester Washington MD [ [facility] STAFF PHYSICIAN] - (R elbow pain, please call Friday to make an appointment with Dr. Washington. ) Activity:: Activity as Tolerated Equipment/Supplies:: No Equipment Needed Diet:: diabetic carb consistent Discharge Orders Discharge Orders: Discharge Order (Routine); Ordered 03/19/19 Ordered By: Priscila Canela DS: Summary Status at Discharge Functional status at discharge: uses cane/walker Overall status at discharge: patient is back to baseline Mental Status: mental status grossly normal Speech and Movement: speech and movement normal Mood: congruent mood Affect: normal affect Exam Narrative Exam Narrative: General: obese male, laying comfortably flat in bed HEENT: EOMI, MMM Heart: RRR, no m/r/g Lungs: CTAB with excellent aeration B Abdomen: soft, nontender, nondistended Extremities: trace BLE edema, chronic venous stasis dermatitis Psych Mental Status: mental status grossly normal Speech and Movement: speech and movement normal Mood: congruent mood Affect: normal affect DS: Data Vitals/I&O Vitals and I&O: Vital Signs Temperature 36.8 C 03/19/19 08:10 Temperature Source Tympanic 03/19/19 08:10 Pulse 86 03/19/19 08:10 Pulse Rhythm Regular 03/19/19 03:02 Pulse 57 L 03/17/19 11:43 Respiratory Rate 18 03/19/19 08:10 Respiratory Effort Non-Labored 03/19/19 03:02 Respiratory Depth Normal 03/19/19 03:02 Respiratory Pattern Normal 03/19/19 03:02 Blood Pressure 134/70 03/19/19 08:10 Blood Pressure Mean 83 03/17/19 11:43 Blood Pressure Position Supine 03/17/19 04:15 Pulse Oximetry 98 03/19/19 08:10 Oxygen Delivery Method Room Air 03/19/19 08:10 Oxygen Flow Rate 1 03/19/19 10:31 Fraction of Inspired Oxygen (FIO2) 21 03/19/19 08:00 Pain Level 0 03/19/19 08:24 Comment 03/18/19 16:18 Intake & Output 03/18/19 03/19/19 03/19/19 23:59 11:59 23:59 Intake Total 1320 / 3820 1080 / 1080 Output Total 3950 / 6550 1175 / 1175 Balance -2630 / -2730 -95 / -95 Weight 107.5 kg Intake: IV 360 / 780 100 / 100 Oral 960 / 3040 980 / 980 Output: Urine 2400 / 4500 625 / 625 Post Void Residual 300 / 300 Stool 1250 / 1750 550 / 550 Other: Urine Color Pale Yellow Yellow Urine Appearance Clear Clear Voiding Methods Urinal Data Completed and Pending Completed studies during hospitalization [Text1]: CXR 03/15/2019: Findings consistent with CHF, little interval change from March 09. Superimposed pneumonitis not specifically excluded on the basis of this examination. CXR 03/16/2019: Findings consistent with interval improvement in CHF. CXR 03/18/2019: Supine AP chest was obtained. Heart is enlarged. Slight prominence of pulmonary interstitial markings noted, continued interval improvement in CHF since prior study of 03/16. No chai pulmonary edema at this time. Question pleural effusions. PA and lateral chest suggested for follow up. Echo 03/17/2019: see official read. Briefly, LVEF 60%, no ventricular systolic function. Diastolic function is reported as normal, but the patient has moderate LV hypertrophy and known hypertension. Pulmonary artery pressures are 51 mmHg. Mild to moderate mitral regurgitation, mild tricuspid regurgitation. Labs on day of discharge: Labs from last 24 hours 03/19/19 03/19/19 03/19/19 08:00 07:13 07:13 WBC 6.92 RBC 4.38 L Hgb 9.3 L Hct 33.5 L MCV 76.5 L MCH 21.2 L MCHC 27.8 L RDW 15.5 H Plt Count 332 MPV 9.8 Immature Gran % 1.4 Neutrophils % 75.9 Lymphocytes % 12.9 Monocytes % 7.7 Eosinophils % 1.7 Basophils % 0.4 Absolute Neutrophils 5.25 Absolute Lymphocytes 0.89 L Absolute Monocytes 0.53 Absolute Eosinophils 0.12 Absolute Basophils 0.03 Sample Site Right radial pCO2 56 H pO2 51 L O2 Saturation 87 L ABG pH 7.43 ABG HCO3 38 H ABG Total CO2 35 H ABG Base Excess 13.2 H Oxygen Liter Flow 11/5 FiO2 21 Sodium 141 Potassium 3.2 L Chloride 100 Carbon Dioxide 35.2 H Anion Gap 5.8 BUN 56 H Creatinine 2.53 H Estimated GFR/1.73 m2 26.20 Glucose 282 H Calcium 8.6 Magnesium 2.1 03/18/19 07:13 WBC RBC Hgb Hct MCV MCH MCHC RDW Plt Count MPV Immature Gran % Neutrophils % Lymphocytes % Monocytes % Eosinophils % Basophils % Absolute Neutrophils Absolute Lymphocytes Absolute Monocytes Absolute Eosinophils Absolute Basophils Sample Site Cancelled pCO2 Cancelled pO2 Cancelled O2 Saturation Cancelled ABG pH Cancelled ABG HCO3 Cancelled ABG Total CO2 Cancelled ABG Base Excess Cancelled Oxygen Liter Flow Cancelled FiO2 Cancelled Sodium Potassium Chloride Carbon Dioxide Anion Gap BUN Creatinine Estimated GFR/1.73 m2 Glucose Calcium Magnesium Preliminary micro results at discharge 03/15/19 11:23 Blood Culture - Preliminary Blood NO GROWTH 72 HOURS 03/15/19 10:47 Blood Culture - Preliminary Blood NO GROWTH 72 HOURS [facility] Medical History Acromegaly (Chronic) Acute on chronic kidney failure (Resolved) Adrenal insufficiency (Chronic) Ambulatory dysfunction (Chronic) Anemia (Chronic) Atrial flutter, paroxysmal (Chronic) Back pain (Chronic 06/21/13) CAD (coronary artery disease) (Chronic) Cardiopulmonary arrest with successful resuscitation (Resolved) Cholelithiasis (Chronic) Chronic anxiety (Chronic) Chronic bipolar disorder (Chronic) a. With history of psychosis. Chronic cholecystitis (Chronic) Chronic insomnia (Chronic) Chronic pain (Chronic) On both Methadone and Fentanyl as well as Ultram and Naproxen. CKD (chronic kidney disease) (Chronic) Complicated UTI (urinary tract infection) (Resolved) Diabetes mellitus (Chronic) Diabetic foot ulcer (Chronic) Diabetic ulcer of toe associated with diabetes mellitus due to underlying condition, with bone involvement without evidence of necrosis (Inactive) 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 (Resolved) Dyslipidemia (Chronic) Elevated troponin I level (Resolved) Endocarditis due to Staphylococcus (Resolved) Heme positive stool (Resolved) Hemorrhagic cystitis (Chronic) Hyperkalemia (Resolved) Hypertension (Chronic) Hypomagnesemia (Chronic) Hypothyroidism (Chronic) Impaired mobility and ADLs (Chronic) Inability to get out of bed (Chronic 06/21/13) Lactic acidosis (Resolved) MRSA bacteremia (Resolved) Obesity (Chronic) a. Obesity though he has had significant weight loss since last seen. Osteoarthritis of both knees (Chronic) Severe. a. [id number] bilateral knees. 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 2 diabetes mellitus (Resolved) Palliative care encounter (Chronic) DObbertin Pedal edema (Chronic) Poor self care (Chronic 06/21/13) Poorly controlled type 2 diabetes mellitus with circulatory disorder (Chronic) Pulmonary hypertension (Chronic) Rheumatoid arthritis (Chronic) Sepsis (Resolved) Septic arthritis of elbow, right (Inactive) Toxic metabolic encephalopathy (Resolved) Toxic metabolic encephalopathy (Resolved) Ulcerative colitis (Chronic) UTI (urinary tract infection) (Resolved) UTI (urinary tract infection) due to Enterococcus (Resolved) Social History Smoking/Tobacco Use Status: Former Tobacco Use Alcohol Intake: former Drug use: Rarely Substance use type: marijuana Housing: senior care Do you feel safe at home: Yes Do you feel safe in your relationship?: Yes
--- NOTE | 2019-03-19 13:37 | PDOC.CMDIS ---
- If Service Date Differs Date of service: 03/19/19 Time of Service: 13:37 LACE Index Scoring Tool - Questions: Length of Stay (in days): 4 - 6 Acuity (Admit via E.D.?): Yes Comorbidities: Diabetes w/o Complication, Congestive Heart Failure, Mild Liver/Renal Disease E.D. Visits: 12 - Answers: Total Score: 16 Risk of Readmission: High Risk Care Management Discharge Reason for Hospitalization: Toxic metabolic encephalopathy, CHF, suspected pneumonia Discharge Plan: Brendan is being discharged back to the [facility]. CM spoke with MACARENA Sow and Dr. Batres about Brendan's care he will have a new BIPAP to be coordinated through the [facility].CM also discussed management of illness with provider and suggestions by the hospitalist. Brendan feels he is ready to return to the [facility], CM coordinated RCT wheelchair transportation. Patient/Family Education Needs: Discharge education, limitations, follow-up plan of care, including sharing information with the [facility], transition of care. Services Needed at Discharge: Correction Facility, Transportation
--- NOTE | 2019-03-19 15:41 | RESPIRATORY ---
Blood Gas obtained at 0800 on 03/19/19: pH: 7.43 pCO2: 56.3 pO2: 50.5 SpO2: 87% HCO3: 37.5 Patient on BiPAP resting in bed, settings 12/29 21% Room Air. -Tonny Becerra RCP.
--- NOTE | 2019-03-23 14:32 | PT.INDS ---
Date of service: 03/23/19 Time of Service: 14:32 PT Notes Visit Reasons: TOXIC METABOLIC ENCEPHALOPATHY,CHF,SUSPECT PNEUMON PT Inpatient Discharge Summary Date: 03/23/2019 Dates of Services: 03/16/2019 through 03/18/2019 Referring Doctor: Priscila Canela MD PT Orders: PT CONSULT: Limited ability Precautions: Contact. Fall. Activity as tolerated. Patient Profile/Admitting Diagnosis: 58-year-old male who was admitted to the ED on 03/15/2019 with chief presentation of increased lethargy, increased work of breathing, and altered mental status. Patient is diagnosed with acute on chronic respiratory failure with hypoxia and hypercapnia, pneumonia, acute on chronic diastolic heart failure, urinary tract infection, and toxic metabolic encephalopathy. Referral to physical therapy was made in order to address mobility impairments, weakness, and impaired activity tolerance. PMHX: Medical History Acromegaly (Chronic) Acute on chronic kidney failure (Resolved) Adrenal insufficiency (Chronic) Ambulatory dysfunction (Chronic) Anemia (Chronic) Atrial flutter, paroxysmal (Chronic) Back pain (Chronic 06/21/13) CAD (coronary artery disease) (Chronic) Cardiopulmonary arrest with successful resuscitation (Resolved) Cholelithiasis (Chronic) Chronic anxiety (Chronic) Chronic bipolar disorder (Chronic) a. With history of psychosis. Chronic cholecystitis (Chronic) Chronic insomnia (Chronic) Chronic pain (Chronic) On both Methadone and Fentanyl as well as Ultram and Naproxen. CKD (chronic kidney disease) (Chronic) Complicated UTI (urinary tract infection) (Resolved) Diabetes mellitus (Chronic) Diabetic foot ulcer (Chronic) Diabetic ulcer of toe associated with diabetes mellitus due to underlying condition, with bone involvement without evidence of necrosis (Inactive) 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 (Resolved) Dyslipidemia (Chronic) Elevated troponin I level (Resolved) Endocarditis due to Staphylococcus (Resolved) Heme positive stool (Resolved) Hemorrhagic cystitis (Chronic) Hyperkalemia (Resolved) Hypertension (Chronic) Hypomagnesemia (Chronic) Hypothyroidism (Chronic) Impaired mobility and ADLs (Chronic) Inability to get out of bed (Chronic 06/21/13) Lactic acidosis (Resolved) MRSA bacteremia (Resolved) Obesity (Chronic) a. Obesity though he has had significant weight loss since last seen. Osteoarthritis of both knees (Chronic) Severe. a. [id number] bilateral knees. 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 2 diabetes mellitus (Resolved) Palliative care encounter (Chronic) DObbertin Pedal edema (Chronic) Poor self care (Chronic 06/21/13) Poorly controlled type 2 diabetes mellitus with circulatory disorder (Chronic) Pulmonary hypertension (Chronic) Rheumatoid arthritis (Chronic) Sepsis (Resolved) Septic arthritis of elbow, right (Inactive) Toxic metabolic encephalopathy (Resolved) Toxic metabolic encephalopathy (Resolved) Ulcerative colitis (Chronic) UTI (urinary tract infection) (Resolved) UTI (urinary tract infection) due to Enterococcus (Resolved) Social History/Home Situation: Long-term resident of the [facility]. Patient has had multiple acute care admissions in the past several years. Patient reports that he has not ambulated at the SNF prior to this admission. Equipment Owned/DME: LTC resident Subjective: NT Objective: General Observation: NT Mental Status: NT Pain: NT ROM: Right Upper Extremity: Shoulder flexion allows 45 degrees. Elbow motion allows WFL. Weak but functional. He has partial opening and partial closing of the hand. Left Upper Extremity: Shoulder flexion allows 50 degrees. Elbow motion WFL. Weak but functional. He has partial opening and partial closing of the hand. Right Lower Extremity: Hip flexors allows less than 90 degrees. Right knee allows -20 degrees extension, 90 degrees flexion. Ankle dorsiflexion allows 0 degrees. Left Lower Extremity: Hip flexors less than 90 degrees. Left knee allows -10 degrees extension, 90 degrees flexion. Ankle dorsiflexion to 0 degrees. Strength: Right Upper Extremity: Shoulder flexors 3-/5. Shoulder abductors 3-/5. Elbow flexors 3-/5. Elbow extensors 3-/5. Left Upper Extremity: Shoulder flexors 3-/5. Shoulder abductors 3-/5. Elbow flexors 3-/5. Elbow extensors 3-/5. Right Lower Extremity: Hip flexors 3-/5. Hip abductors 3-/5. Knee flexors 3-/5. Knee extensors 2-/5. Ankle dorsiflexors 1/5. Ankle plantarflexors 1/5. Left Lower Extremity:Hip flexors 3-/5. Hip abductors 3-/5. Knee flexors 3-/5. Knee extensors 2-/5. Ankle dorsiflexors 1/5. Ankle plantarflexors 1/5. Bed Mobility/Transfers: Rolling independent Supine to sit independent Sit to supine supervision Sit to stand supervision Stand to sit supervision Bed to chair supervision Chair to bed supervision Gait: 20 feet with FWW with SBA. Balance: Static Sitting: Normal Dynamic Sitting: Normal Static Standing: Fair Dynamic Standing: Fair Assessment: 58-year-old male who was admitted to the ED on 03/15/2019 with chief presentation of increased lethargy, increased work of breathing, and altered mental status. Patient is diagnosed with acute on chronic respiratory failure with hypoxia and hypercapnia, pneumonia, acute on chronic diastolic heart failure, urinary tract infection, and toxic metabolic encephalopathy. Referral to physical therapy was made in order to address mobility impairments, weakness, and impaired activity tolerance. Patient demonstrated the following impairment level findings: 1. Severe, global weakness and loss of range of motion 2. Contractures of the right elbow, bilateral knees 3. Decreased activity tolerance 4. Back pain Impairments contributedto the following functional limitations: 1. Unable to ambulate 2. Decreased activity tolerance 3. Decreased independence with transfers Goals: Goals X1 week 1. Supine-Sit CGA MET 2. Sit-Supine CGA MET 3. Sit-Stand minimal assist MET 4. Stand-Sit minimal assist MET 5. Bed-Chair minimal assist MET 6. Chair-Bed minimal assist MET 7. Minimal assist gait on level surface with use of least restrictive device for at least 50 feet without report of pain nor dyspnea NOT MET 8. Independent with home exercise program NOT MET 9. Fair static and dynamic standing balance/tolerance NOT MET DISCHARGE RECOMMENDATIONS: Return to SNF when medically cleared to do so with continued skilling for physical therapy to facilitate achievement of highest functional mobility level. TREATMENT CODE/TIME: ND Thank you very much for this referral. Nona Pena PT, DPT, CLT [facility] Inpatient PT at [facility]
== END 2019-03-19 13:40 | disposition skilled nursing facility (03) | DRG 189 ==
LOC: ER 12:51 → ICU 14:10 → MS 03-17 15:16
PROVIDERS: General Practice; Admitting Provider Internal Medicine; Emergency Provider Student in an Organized Health Care Education/Training Program; PCP Family Medicine; Visit Provider Internal Medicine
DX: J96.21 Acute and chronic respiratory failure with hypoxia (principal); J18.9 Pneumonia, unspecified organism; I50.33 Acute on chronic diastolic (congestive) heart failure; G92 Toxic encephalopathy; N39.0 Urinary tract infection, site not specified; I48.92 Unspecified atrial flutter; K50.90 Crohn's disease, unspecified, without complications; E27.3 Drug-induced adrenocortical insufficiency; J96.22 Acute and chronic respiratory failure with hypercapnia; I27.20 Pulmonary hypertension, unspecified; Z79.01 Long term (current) use of anticoagulants; I50.813 Acute on chronic right heart failure; E11.65 Type 2 diabetes mellitus with hyperglycemia; E11.59 Type 2 diabetes mellitus with other circulatory complications; I11.0 Hypertensive heart disease with heart failure; M06.9 Rheumatoid arthritis, unspecified; Z79.52 Long term (current) use of systemic steroids; G47.33 Obstructive sleep apnea (adult) (pediatric); Y95 Nosocomial condition; I25.10 Atherosclerotic heart disease of native coronary artery without angina pectoris; F31.9 Bipolar disorder, unspecified; E78.5 Hyperlipidemia, unspecified; T38.0X5A Adverse effect of glucocorticoids and synthetic analogues, initial encounter; Z71.3 Dietary counseling and surveillance; Z79.4 Long term (current) use of insulin; D64.9 Anemia, unspecified; E03.9 Hypothyroidism, unspecified; Z93.3 Colostomy status
CPT/HCPCS: 36415; 36416; 80048; 80053; 82805; 82947; 82962; 87040; 87081; 93005; 94640; 96365; 96375; 97110; 97162; 97166; 97530; 97535; 99232; 99233; 99239; 99285; 99291; 36600; 71045; 81003; 81015; 83605; 83735; 83880; 84443; 84484; 85025; 85610; 85730; 87070; 87086; 87205; 93010; 93306; 94660; J1720; J1940; J2543; J3370; J3475; J3490; J7512; J7620

== ENCOUNTER 2019-03-22 17:58 | Outpatient (REF) | payer MEDICARE, MEDICAID, SELFPAY ==
[2019-03-22 13:31] LABS: Abs Immature Grans 0.13 k/cumm (0.0-0.09); Absolute Basophil Count 0.03 k/cumm (0.0-0.2); Absolute Eosinophil Count 0.47 k/cumm (0.0-0.7); Absolute Lymphocyte Count 1.37 k/cumm (1.2-3.4); Absolute Monocyte Count 0.62 k/cumm (0.11-0.7); Absolute Neutrophil Count 5.97 k/cumm (1.2-6.7); Basophils % 0.3; Eosinophils % 5.5; HCT 34.8 % (40.0-50.0); HGB 9.3 g/dL (13.5-17.5); Immature Grans % 1.5 %; Lymphocytes % 15.9; Mean Corp. HGB Concentration 26.7 g/dL (32.0-36.0); Mean Corpuscular Hemoglobin 21.8 pg (27.0-33.0); Mean Corpuscular Volume 81.5 fL (80-95); Mean Platelet Volume 10.2 fL (8.0-11.0); Monocytes % 7.2; Neutrophils % 69.6; Platelet Count 330 x1000/uL (130-400); RBC 4.27 m/cumm (4.50-6.00); RBC Distribution Width 16.1 % (11.8-14.1); White Blood Cell Count 8.59 k/cumm (4.4-10.8)
[2019-03-22 13:40] LABS: Anion Gap 6.1 mmol/L (3-11); BUN 51 mg/dL (7-18); CO2 31.9 mmol/L (21.0-32.0); CREATININE 2.08 mg/dL (0.70-1.30); Calcium 7.9 mg/dL (8.5-10.1); Chloride 110 mmol/L (98-107); Estimated GFR 32.85 (mL/min/1.73m2); Potassium 4.2 mmol/L (3.5-5.1); Sodium 148 mmol/L (136-145)
== END 2019-03-22 18:18 ==
LOC: LBN 17:58
PROVIDERS: PCP Family Medicine; Visit Provider Family Medicine
DX: I10 Essential (primary) hypertension (principal); R53.83 Other fatigue
CPT/HCPCS: 80048; 85025

== ENCOUNTER 2019-03-29 12:54 | Outpatient (REF) | payer MEDICARE, MEDICAID, SELFPAY ==
[2019-03-29 14:14] LABS: Anion Gap 5.6 mmol/L (3-11); BUN 51 mg/dL (7-18); CO2 34.4 mmol/L (21.0-32.0); CREATININE 1.72 mg/dL (0.70-1.30); Calcium 8.6 mg/dL (8.5-10.1); Chloride 109 mmol/L (98-107); Glucose 95 mg/dL (74-106); Potassium 3.9 mmol/L (3.5-5.1); Sodium 149 mmol/L (136-145)
== END 2019-03-29 13:14 ==
LOC: LBN 12:54
PROVIDERS: PCP Family Medicine; Visit Provider Family Medicine
DX: I10 Essential (primary) hypertension (principal)
CPT/HCPCS: 80048

== ENCOUNTER 2019-04-12 13:14 | Outpatient (REF) | payer MEDICARE, MEDICAID, SELFPAY ==
[2019-04-12 13:35] LABS: Abs Immature Grans 0.22 k/cumm (0.0-0.09); Absolute Basophil Count 0.03 k/cumm (0.0-0.2); Absolute Lymphocyte Count 0.91 k/cumm (1.2-3.4); Absolute Monocyte Count 0.72 k/cumm (0.11-0.7); Basophils % 0.3; Eosinophils % 4.4; Lymphocytes % 8.1; Mean Corp. HGB Concentration 27.6 g/dL (32.0-36.0); Mean Corpuscular Hemoglobin 23.5 pg (27.0-33.0); Mean Platelet Volume 9.9 fL (8.0-11.0); Monocytes % 6.4; Neutrophils % 78.8; Platelet Count 290 x1000/uL (130-400); RBC 3.41 m/cumm (4.50-6.00); RBC Distribution Width 16.4 % (11.8-14.1); White Blood Cell Count 11.25 k/cumm (4.4-10.8)
[2019-04-12 14:22] LABS: Absolute Neutrophil Count 8.87 k/cumm (1.2-6.7)
[2019-04-12 14:23] LABS: Anion Gap 8.3 mmol/L (3-11); Anisocytosis 2+; BUN 58 mg/dL (7-18); Basophilic Stippling Present; Burr Cells (echinocyte) 2+; CO2 27.7 mmol/L (21.0-32.0); CREATININE 1.77 mg/dL (0.70-1.30); Chloride 108 mmol/L (98-107); Diff Comment RBC Morph Reviewed; Estimated GFR 39.57 (mL/min/1.73m2); Glucose 311 mg/dL (74-106); Hypochromasia 2+; Microcytosis 2+; Ovalocytes 2+; Polychromasia Present; Potassium 5.2 mmol/L (3.5-5.1); Sodium 144 mmol/L (136-145); Vitamin B12 628 pg/mL (193-986)
[2019-04-12 14:24] LABS: Poikilocytes 2+
[2019-04-12 14:37] LABS: Calcium 8.5 mg/dL (8.5-10.1)
== END 2019-04-12 13:34 ==
LOC: LBN 13:14
PROVIDERS: PCP Family Medicine; Visit Provider Family Medicine
DX: I10 Essential (primary) hypertension (principal); E11.40 Type 2 diabetes mellitus with diabetic neuropathy, unspecified; R53.83 Other fatigue; N18.9 Chronic kidney disease, unspecified; I50.20 Unspecified systolic (congestive) heart failure
CPT/HCPCS: 80048; 82607; 85025

== ENCOUNTER 2019-04-15 09:03 | Outpatient (REF) | payer MEDICARE, MEDICAID, SELFPAY ==
[2019-04-15 09:15] LABS: Abs Immature Grans 0.11 k/cumm (0.0-0.09); Absolute Basophil Count 0.01 k/cumm (0.0-0.2); Absolute Eosinophil Count 0.21 k/cumm (0.0-0.7); Absolute Lymphocyte Count 1.02 k/cumm (1.2-3.4); Absolute Neutrophil Count 4.59 k/cumm (1.2-6.7); Basophils % 0.2; Eosinophils % 3.2; HCT 29.3 % (40.0-50.0); HGB 8.1 g/dL (13.5-17.5); Immature Grans % 1.7 %; Lymphocytes % 15.4; Mean Corp. HGB Concentration 27.6 g/dL (32.0-36.0); Mean Corpuscular Volume 83.2 fL (80-95); Mean Platelet Volume 9.8 fL (8.0-11.0); Monocytes % 10.5; Platelet Count 346 x1000/uL (130-400); RBC 3.52 m/cumm (4.50-6.00); RBC Distribution Width 16.2 % (11.8-14.1); White Blood Cell Count 6.64 k/cumm (4.4-10.8)
[2019-04-15 09:26] LABS: ALT 18 U/L (16-63); AST 11 U/L (15-37); Albumin 2.5 g/dL (3.4-5.0); Alkaline Phosphatase 125 U/L (46-116); Anion Gap 4.5 mmol/L (3-11); BUN 54 mg/dL (7-18); Bilirubin, Total 0.3 mg/dL (0.2-1.0); CO2 31.5 mmol/L (21.0-32.0); CREATININE 2.35 mg/dL (0.70-1.30); Calcium 8.6 mg/dL (8.5-10.1); Chloride 109 mmol/L (98-107); Estimated GFR 28.53 (mL/min/1.73m2); Glucose 268 mg/dL (74-106); Potassium 4.9 mmol/L (3.5-5.1); Sodium 145 mmol/L (136-145); Total Protein 5.5 g/dL (6.4-8.2)
== END 2019-04-15 09:23 ==
LOC: LBN 09:03
PROVIDERS: PCP Family Medicine; Visit Provider Family Medicine
DX: R50.9 Fever, unspecified (principal); L03.90 Cellulitis, unspecified; E11.9 Type 2 diabetes mellitus without complications; M06.9 Rheumatoid arthritis, unspecified; E87.8 Other disorders of electrolyte and fluid balance, not elsewhere classified
CPT/HCPCS: 80053; 85025

== ENCOUNTER 2019-04-15 15:45 | Emergency (ER) | payer MEDICARE, MEDICAID, SELFPAY ==
[2019-04-15 15:43] VITALS: BP 128/71; PULSE 56; RESP 24; TEMP 36.7; O2SAT 95
[2019-04-15 15:52] VITALS: RESP 23
[2019-04-15 16:04] VITALS: BP 130/67; PULSE 54; PULSE 55; RESP 24
[2019-04-15 16:05] VITALS: PULSE 57; RESP 17
[2019-04-15 16:10] VITALS: PULSE 55; RESP 24
[2019-04-15] MEDS: Gelatin SPONGE 12-7 MM PKT 1 EACH TP (16:15)
[2019-04-15 16:16] VITALS: BP 125/66; PULSE 56; RESP 23; O2SAT 95
--- NOTE | 2019-04-15 16:29 | ED.GENADUL_ITS ---
Discharge Plan Disposition Patient Disposition: HOME Condition: Stable Discharge Details Chief Complaint: Vascular Clinical Impression: Leg wound, left Primary Care Provider: Lou Maldonado ED Provider: Hemanth Olivia Carnegie Meds and New Rx's Prescriptions: Continued cyanocobalamin (vitamin B-12) 1,000 mcg Tablet 1,000 mcg PO DAILY RF: 0 ferrous sulfate 325 mg (65 mg iron) Tablet 325 mg PO BID Qty: 0 RF: 0 ascorbic acid (vitamin C) [Vitamin C] 250 mg Tablet 1 tab PO BID RF: 0 Centrum Complete 18-400 mg-mcg Tablet 1 tab PO DAILY RF: 0 acidophilus-pectin, citrus 25 million cell -100 mg Tablet 1 cap PO TID Qty: 0 RF: 0 Eliquis 5 mg Tablet 5 mg PO BID Qty: 60 RF: 0 insulin aspart U-100 [Novolog Flexpen U-100 Insulin] 100 unit/mL Insulin Pen See Rx Instructions .ROUTE .COMPLEX Qty: 15 RF: 0 pantoprazole 40 mg Tablet,Delayed Release (Dr/Ec) 40 mg PO DAILY Qty: 60 RF: 0 melatonin 3 mg Tablet Extended Release 6 mg PO HS Qty: 30 RF: 0 sodium bicarbonate 650 mg Tablet 650 mg PO TID Qty: 90 RF: 0 calcium carbonate-vitamin D3 [Calcium 500 + D] 500 mg(1,250mg) -400 unit Tablet 1 tab PO BID RF: 0 clonidine HCl [Catapres] 0.1 mg Tablet 0.1 mg PO TID Qty: 0 RF: 0 acetaminophen [Tylenol] 325 mg tablet 1,000 mg PO TID RF: 0 gabapentin 100 mg capsule 300 mg PO TID RF: 0 terazosin 2 mg Capsule 4 mg PO BID Qty: 0 RF: 0 magnesium chloride [Mag 64] 64 mg Tablet,Delayed Release (Dr/Ec) 64 mg PO BID Qty: 0 RF: 0 venlafaxine [Effexor XR] 37.5 mg Capsule,Extended Release 24hr 112.5 mg PO DAILY RF: 0 Zyrtec 10 mg Capsule 10 mg PO DAILY RF: 0 amlodipine 5 mg tablet 10 mg PO DAILY RF: 0 levothyroxine 25 mcg tablet 12.5 mcg PO DAILY@0600 RF: 0 furosemide 20 mg Tablet 40 mg DAILY RF: 0 Lantus Solostar U-100 Insulin 100 unit/mL (3 mL) insulin pen See Rx Instructions .ROUTE .COMPLEX RF: 0 potassium chloride 20 mEq tablet extended release 20 meq PO DAILY Qty: 10 RF: 0 prednisone 20 mg Tablet See Rx Instructions .ROUTE .COMPLEX Qty: 30 RF: 0 risperidone [Risperdal] 2 mg Tablet 2 mg PO HS Qty: 0 RF: 0 insulin aspart U-100 100 unit/mL (3 mL) insulin pen 10 unit SC AC Qty: 15 RF: 0 Discharge Instructions Additional Instructions: Have the suture that was placed under the gel foam removed in 10 days. Do not remove the gel foam until ten days or until it is absorbed. If you have worsening bleeding that is unable to be controlled with direct pressure return to the emergency department Medical Decision Making 58 yo male who resides at the [facility] comes in with left leg oozing of blood. He had a wound vac on his left lower leg removed yesterday and today nursing noted some bleeding they were unable to control so he was sent here. He denies any pain and has no complaints currently. He has a small 0.5cm area of slow oozing of blood from left atnerior leg that I was able to stop with a figure of 8 stitch and then placed gel foam over this. Will d/c back to rehab. Differential Diagnosis Differential Diagnosis: venous oozing, capillary leak HPI General Mode of arrival: EMS . Date/Time Provider Initiated Documentation: 04/15/19 15:47 . Limitations to Documentation: no limitations . Information obtained by: patient . History of Present Illness 58 year old M presents to the emergency department with the chief complaint of bleeding from left leg wound, and it has been constant. No relieving factors improve symptom(s), No exacerbating factors reported . Related Data Home Medications Medication Instructions Recorded Confirmed cyanocobalamin (vitamin B-12) 1,000 mcg PO DAILY 12/23/17 03/15/19 ferrous sulfate 325 mg PO BID #0 tab 12/31/17 03/15/19 magnesium chloride [Mag 64] 64 mg PO BID #0 tab 02/10/18 03/15/19 terazosin 4 mg PO BID #0 cap 02/10/18 03/15/19 Centrum Complete 1 tab PO DAILY 03/01/18 03/15/19 ascorbic acid (vitamin C) [Vitamin 1 tab PO BID 03/01/18 03/15/19 C] acidophilus-pectin, citrus 1 cap PO TID #0 tab 03/24/18 03/15/19 Eliquis 5 mg PO BID #60 tab 06/19/18 03/15/19 insulin aspart U-100 [Novolog See Rx Instructions .ROUTE 06/19/18 03/15/19 Flexpen U-100 Insulin] .COMPLEX #15 ml melatonin 6 mg PO HS #30 tab 06/19/18 03/15/19 pantoprazole 40 mg PO DAILY #60 tab 06/19/18 03/15/19 sodium bicarbonate 650 mg PO TID #90 tab 06/19/18 03/15/19 calcium carbonate-vitamin D3 1 tab PO BID 07/09/18 03/15/19 [Calcium 500 + D] clonidine HCl [Catapres] 0.1 mg PO TID #0 tab 07/23/18 03/15/19 venlafaxine [Effexor XR] 112.5 mg PO DAILY 10/23/18 03/15/19 acetaminophen [Tylenol] 1,000 mg PO TID 01/08/19 03/15/19 gabapentin 300 mg PO TID 01/08/19 03/15/19 Zyrtec 10 mg PO DAILY 02/23/19 03/15/19 amlodipine 10 mg PO DAILY 02/26/19 03/15/19 levothyroxine 12.5 mcg PO DAILY@0600 02/26/19 03/15/19 furosemide 40 mg DAILY 03/09/19 03/15/19 Lantus Solostar U-100 Insulin See Rx Instructions .ROUTE .COMPLEX 03/15/19 03/15/19 insulin aspart U-100 10 unit SC AC #15 ml 03/19/19 potassium chloride 20 meq PO DAILY #10 tab 03/19/19 prednisone See Rx Instructions .ROUTE 03/19/19 03/15/19 .COMPLEX #30 tab risperidone [Risperdal] 2 mg PO HS #0 tab 03/19/19 03/15/19 Previous Rx's Medication Instructions Recorded ferrous sulfate 325 mg PO BID #0 tab 12/31/17 magnesium chloride [Mag 64] 64 mg PO BID #0 tab 02/10/18 terazosin 4 mg PO BID #0 cap 02/10/18 acidophilus-pectin, citrus 1 cap PO TID #0 tab 03/24/18 Eliquis 5 mg PO BID #60 tab 06/19/18 insulin aspart U-100 [Novolog See Rx Instructions .ROUTE 06/19/18 Flexpen U-100 Insulin] .COMPLEX #15 ml melatonin 6 mg PO HS #30 tab 06/19/18 pantoprazole 40 mg PO DAILY #60 tab 06/19/18 sodium bicarbonate 650 mg PO TID #90 tab 06/19/18 clonidine HCl [Catapres] 0.1 mg PO TID #0 tab 07/23/18 insulin aspart U-100 10 unit SC AC #15 ml 03/19/19 potassium chloride 20 meq PO DAILY #10 tab 03/19/19 prednisone See Rx Instructions .ROUTE 03/19/19 .COMPLEX #30 tab risperidone [Risperdal] 2 mg PO HS #0 tab 03/19/19 Allergies Allergy/AdvReac Type Severity Reaction Status Date / Time No Known Allergies Allergy Verified 03/15/19 11:52 General Stated Complaint: Vascular YVES: 3 Review of Systems All systems reviewed & are unremarkable except as noted in HPI and below Constitutional Constitutional: Denies chills and Denies fever(s) ENT Ears, Nose, Mouth, and Throat: Denies change in voice Cardiovascular Cardiovascular: Denies chest pain and Denies dyspnea Respiratory Respiratory: Denies cough and Denies dyspnea Gastrointestinal Gastrointestinal: Denies abdominal pain, Denies nausea and Denies vomiting Musculoskeletal Musculoskeletal: Denies joint swelling [facility] Social History Smoking/Tobacco Use Status: Former Tobacco Use Alcohol Intake: former Drug use: Rarely Substance use type: marijuana Housing: detention Do you feel safe at home: Yes Do you feel safe in your relationship?: Yes Exam Const General: no acute distress Orientation: alert HENMT Head: normal to inspection Ears: external ears normal General nose exam: external nose normal Mouth: moist mucous membranes Eyes General: appearance normal, both eyes and all related structures Neck Neck: normal visual inspection Resp Effort & Inspection: normal respiratory effort and able to speak in complete sentences Cardio Rate: regular rate Skin General skin exam: no rashes or lesions noted Neuro General: alert and oriented x3 Extrem General: normal capillary refill Psych Mental Status: mental status grossly normal Course Vital Signs Vital signs: Vital Signs Temperature 36.7 C 04/15/19 15:43 Pulse 56 L 04/15/19 15:43 Respiratory Rate 24 04/15/19 15:43 Blood Pressure 128/71 04/15/19 15:43 Pulse Oximetry 95 04/15/19 15:43 Temperature 36.7 C 04/15/19 15:43 Temperature Source Skin 04/15/19 15:43 Pulse 56 L 04/15/19 16:16 Pulse 56 L 04/15/19 16:16 Respiratory Rate 23 04/15/19 16:16 Respiratory Effort 04/15/19 15:52 Respiratory Depth Normal 04/15/19 15:52 Respiratory Pattern Tachypnea 04/15/19 15:52 Blood Pressure 125/66 04/15/19 16:16 Blood Pressure Mean 80 04/15/19 16:16 Blood Pressure Position Supine 04/15/19 15:43 Pulse Oximetry 95 04/15/19 16:16 Oxygen Delivery Method Room Air 04/15/19 15:43 Oxygen Flow Rate 0 04/15/19 15:43 Pain Level 0 04/15/19 15:43
== END 2019-04-15 17:02 | disposition home or self-care (01) ==
LOC: ER 17:00
PROVIDERS: Emergency Provider Emergency Medicine; PCP Family Medicine
DX: S81.802A Unspecified open wound, left lower leg, initial encounter (principal); X58.XXXA Exposure to other specified factors, initial encounter; E11.8 Type 2 diabetes mellitus with unspecified complications; Z79.4 Long term (current) use of insulin
CPT/HCPCS: 99281

== ENCOUNTER 2019-04-20 11:46 | Outpatient (REF) | payer MEDICARE, MEDICAID, SELFPAY ==
[2019-04-20 13:44] LABS: Anion Gap 7.9 mmol/L (3-11); BUN 34 mg/dL (7-18); CO2 30.1 mmol/L (21.0-32.0); CREATININE 1.76 mg/dL (0.70-1.30); Calcium 8.6 mg/dL (8.5-10.1); Chloride 108 mmol/L (98-107); Estimated GFR 39.83 (mL/min/1.73m2); Glucose 145 mg/dL (74-106); Potassium 4.4 mmol/L (3.5-5.1); Sodium 146 mmol/L (136-145); TSH 0.87 uIU/mL (0.36-3.74)
== END 2019-04-20 12:06 ==
LOC: LBN 11:46
PROVIDERS: PCP Family Medicine; Visit Provider Family Medicine
DX: I10 Essential (primary) hypertension (principal); R63.4 Abnormal weight loss
CPT/HCPCS: 80048; 84443

== ENCOUNTER 2019-05-01 14:16 | Inpatient (IN) | payer MEDICARE, MEDICAID, SELFPAY ==
[2019-05-01] VITALS (62 sets, daily range): BP systolic 100–159; BP diastolic 54–107; PULSE 46–169; RESP 4–44; TEMP 36.4–36.8; O2SAT 87–100
--- NOTE | 2019-05-01 14:27 | ED.GENADUL_ITS ---
Discharge Plan Disposition Patient Disposition: [facility] INPATIENT Condition: Fair Discharge Details Chief Complaint: Palpitatns Clinical Impression: Acute exacerbation of CHF (congestive heart failure), UTI (urinary tract infection), Acute kidney injury superimposed on chronic kidney disease, Pneumo alexei, Acute cholecystitis, Atrial fibrillation with rapid ventricular response Admit Date/Time: 05/01/19 16:14 Admit Provider: Scar Gan Attending Provider: Scar Gan Primary Care Provider: Lou Maldonado ED Provider: Reny Trejo Discharge Data Discharge Date/Time-TO BE ENTERED AT DEPARTURE: 05/01/19 14:50 Medical Decision Making 1420 -- 59-year-old male with a history of anxiety, bipolar, coronary artery disease, diabetes, hypertension, morbid obesity well-known to the emergency department presents from the [facility] for hypoxia, abdominal pain, diaphoresis and tachycardia. Patient complains of some shortness of breath with dry cough and upper abdominal pain. He denies any chest pain or known fever. He is noted to be diaphoretic. Pulse 150s. Respirations 40s. Afebrile. Oxygen saturation 98 to 100% on patient's baseline 2 L. He has diminished breath sounds right side of chest. Abdomen soft and minimally tender in epigastrium. EKG notes a rate of 151, questionable sinus, undetermined, with no acute ST ischemic changes. Differential diagnosis includes PE, ACS, pneumonia, CHF, COPD, electrolyte abnormality, arrhythmia, bronchitis, UTI, influenza. Will check screening labs, CT chest and abdomen and give a DuoNeb and reassess. Doubt PE as pt is on eliquis. 1550 -- labs and imaging reviewed - wbc 16, Hgb stable at 9, K 5.8, Cr 2.45 increased from recent 1.76, has been 2.3 in recent past. Lactate 0.9, BNP 10080. UA notes UTI. Will start antibiotics. Will change CT to w/o contrast. pt reassessed - pt w/ wheezing throughout. HR 130s-140s. RR 30s. Will give a duoneb and solu-medrol. 1600 -- d/w hospitalist - accepts pt for admission. Reviewed ekg and appears c/w atrial flutter. Would like cardizem dose. 1615 -- HR decreased to 70s then back up to 110s. Repeat ekg notes HR 116 A fib, no acute st ischemic changes. Will start cardizem gtt. CT report notes small bilateral pleural fluid collections with mild posterior left upper lobe infiltrate. Also noted questionable acute cholecystitis but no biliary tract dilatation. Results discussed with surgery Dr. Sandhu who agrees with Zosyn and will follow-up with patient in the morning. Likely plan for ultrasound Friday morning. Dr. Gan informed. Medical Records Medical records reviewed: Yes I reviewed the patient's medical records. Imaging Data Radiologic Study: Radiologist's impression: CT Chest Without Contrast Exam date and time: 05/01/2019 3:12 PM Age: 59 years old Clinical indication: Hypoxia, upper abd pain, R/O CHF, pneumonia; Prior surgery; date: 6+ months TECHNIQUE: Imaging protocol: Computed tomography of the chest without contrast. COMPARISON: CT chest/abd wo 05/03/2018 10:18 AM FINDINGS: Lungs: Minimal posterior lower lobe compressive atelectasis. Mild posterior left upper lobe infiltrate. Right lung areas of linear parenchymal scarring or subsegmental collapse / atelectasis. Pleural space: Small bilateral pleural fluid collections. Heart: Unremarkable. No cardiomegaly. No pericardial effusion. Aorta: Unremarkable. No aortic aneurysm. Lymph nodes: Unremarkable. No enlarged lymph nodes. Bones/joints: Spinal degenerative changes. Soft tissues: Gynecomastia. Other findings: Evidence of old granulomatous disease. IMPRESSION: 1. Small bilateral pleural fluid collections with adjacent minimal posterior lower lobe compressive atelectasis. 2. Mild posterior left upper lobe infiltrate. 3. Right lung areas of linear parenchymal scarring or subsegmental collapse / atelectasis. CT Abdomen And Pelvis Without Contrast Exam date and time: 05/01/2019 3:12 PM Age: 59 years old Clinical indication: Hypoxia, upper abd pain, R/O CHF, pneumonia; Prior surgery; date: 6+ months TECHNIQUE: Imaging protocol: Computed tomography of the abdomen and pelvis without contrast. COMPARISON: CT chest/abd wo 05/03/2018 10:18 AM FINDINGS: Liver: Normal. No mass. Gallbladder and bile ducts: Cholelithiasis with mild wall thickening and pericholecystic stranding suggesting acute cholecystitis. No biliary tract dilatation. Pancreas: Normal. No ductal dilation. Spleen: Borderline splenomegaly. Adrenals: Normal. No mass. Kidneys and ureters: Normal. No hydronephrosis. Stomach and bowel: Physical katty in the posterior rectal region. Lower right abdominal ostomy. Appendix: No evidence of appendicitis. Intraperitoneal space: Small amount of free fluid in the abdomen. Vasculature: IVC filter. Lymph nodes: Unremarkable. No enlarged lymph nodes. Bladder: Decompressed urinary bladder. Reproductive: Unremarkable as visualized. Bones/joints: Spinal degenerative changes. Soft tissues: Areas of subcutaneous soft tissue edema. Lipoma within the soft tissues anterior to the right hip. IMPRESSION: 1. Cholelithiasis with mild wall thickening and pericholecystic stranding suggesting acute cholecystitis. 2. No biliary tract dilatation. 3. Small amount of free fluid in the abdomen. Lab Data Lab results reviewed: Yes I reviewed the patient's lab results. Labs: 05/01/19 16:25 Blood Blood Culture - Pending 05/01/19 16:10 Blood Blood Culture - Pending 05/01/19 14:58 Urine - Reflex from Ua Urine Culture - Pending Laboratory Tests Range/Units 05/01/19 05/01/19 05/01/19 14:20 14:20 14:20 WBC (4.4-10.8) k/cumm 16.44 H RBC (4.50-6.00) m/cumm 4.08 L Hgb (13.5-17.5) g/dL 9.0 L Hct (40.0-50.0) % 32.3 L MCV (80-95) fL 79.2 L MCH (27.0-33.0) pg 22.1 L MCHC (32.0-36.0) g/dL 27.9 L RDW (11.8-14.1) % 16.6 H Plt Count (130-400) x1000/uL 509 H MPV (8.0-11.0) fL 9.7 Immature Gran % % 1.0 Neutrophils % 87.7 Lymphocytes % 4.7 Monocytes % 5.6 Eosinophils % 0.7 Basophils % 0.3 Absolute Neutrophils (1.2-6.7) k/cumm 14.42 H Absolute Lymphocytes (1.2-3.4) k/cumm 0.77 L Absolute Monocytes (0.11-0.7) k/cumm 0.92 H Absolute Eosinophils (0.0-0.7) k/cumm 0.12 Absolute Basophils (0.0-0.2) k/cumm 0.05 Differential Comment Rbc morph reviewed RBC Morphology See below Polychromasia Present Hypochromasia 2+ Poikilocytosis 2+ Anisocytosis 2+ Microcytosis 2+ Ovalocytes 2+ PT (9.3-11.0) sec 11.5 H INR (0.9-1.1) 1.1 APTT (21.0-31.4) sec 27.4 Sodium (136-145) mmol/L 143 Potassium (3.5-5.1) mmol/L 5.8 H Chloride (98-107) mmol/L 108 H Carbon Dioxide (21.0-32.0) mmol/L 29.8 Anion Gap (3-11) mmol/L 5.2 BUN (7-18) mg/dL 54 H Creatinine (0.70-1.30) mg/dL 2.45 H Estimated GFR/1.73 m2 (mL/min/1.73m2) 27.10 Glucose (74-106) mg/dL 239 H Lactate (0.6-1.4) mmol/L Calcium (8.5-10.1) mg/dL 8.3 L Magnesium (1.8-2.4) mg/dL 1.9 Total Bilirubin (0.2-1.0) mg/dL 0.5 AST (15-37) U/L 8 L ALT (16-63) U/L 12 L Alkaline Phosphatase (46-116) U/L 111 Troponin I (<0.06) ng/Ml < 0.05 NT-Pro-B Natriuret Pep (<300) pg/mL Total Protein (6.4-8.2) g/dL 6.7 Albumin (3.4-5.0) g/dL 2.5 L Lipase (73-393) U/L 62 Urine Color (Yellow) Urine Clarity (Clear) Urine pH (5-8) Ur Specific [place] (1.005-1.025) Urine Protein (Negative) mg/dL Urine Ketones (Negative) mg/dL Urine Blood (Negative) Urine Nitrite (Negative) Urine Bilirubin (Negative) Urine Urobilinogen (Up TO 0.2) EU/dL Ur Leukocyte Esterase (Negative) Urine RBC (0-2) HPF Urine WBC (0-5) HPF Ur Epithelial Cells (Negative) HPF Urine Crystals (Negative) HPF Urine Bacteria (Negative) HPF Urine Mucus (Negative) Urine Other (Negative) Ur Culture Indicated? Urine Glucose (Negative) mg/dL Range/Units 05/01/19 05/01/19 05/01/19 14:20 14:20 14:58 WBC (4.4-10.8) k/cumm RBC (4.50-6.00) m/cumm Hgb (13.5-17.5) g/dL Hct (40.0-50.0) % MCV (80-95) fL MCH (27.0-33.0) pg MCHC (32.0-36.0) g/dL RDW (11.8-14.1) % Plt Count (130-400) x1000/uL MPV (8.0-11.0) fL Immature Gran % % Neutrophils % Lymphocytes % Monocytes % Eosinophils % Basophils % Absolute Neutrophils (1.2-6.7) k/cumm Absolute Lymphocytes (1.2-3.4) k/cumm Absolute Monocytes (0.11-0.7) k/cumm Absolute Eosinophils (0.0-0.7) k/cumm Absolute Basophils (0.0-0.2) k/cumm Differential Comment RBC Morphology Polychromasia Hypochromasia Poikilocytosis Anisocytosis Microcytosis Ovalocytes PT (9.3-11.0) sec INR (0.9-1.1) APTT (21.0-31.4) sec Sodium (136-145) mmol/L Potassium (3.5-5.1) mmol/L Chloride (98-107) mmol/L Carbon Dioxide (21.0-32.0) mmol/L Anion Gap (3-11) mmol/L BUN (7-18) mg/dL Creatinine (0.70-1.30) mg/dL Estimated GFR/1.73 m2 (mL/min/1.73m2) Glucose (74-106) mg/dL Lactate (0.6-1.4) mmol/L 0.9 Calcium (8.5-10.1) mg/dL Magnesium (1.8-2.4) mg/dL Total Bilirubin (0.2-1.0) mg/dL AST (15-37) U/L ALT (16-63) U/L Alkaline Phosphatase (46-116) U/L Troponin I (<0.06) ng/Ml NT-Pro-B Natriuret Pep (<300) pg/mL 55316 H Total Protein (6.4-8.2) g/dL Albumin (3.4-5.0) g/dL Lipase (73-393) U/L Urine Color (Yellow) Yellow Urine Clarity (Clear) Cloudy Urine pH (5-8) 6.0 Ur Specific [place] (1.005-1.025) 1.025 Urine Protein (Negative) mg/dL 100 H Urine Ketones (Negative) mg/dL Negative Urine Blood (Negative) Trace-intact H Urine Nitrite (Negative) Negative Urine Bilirubin (Negative) Negative Urine Urobilinogen (Up TO 0.2) EU/dL 1 Ur Leukocyte Esterase (Negative) Moderate Urine RBC (0-2) HPF Urine WBC (0-5) HPF >50 H Ur Epithelial Cells (Negative) HPF Negative Urine Crystals (Negative) HPF Negative Urine Bacteria (Negative) HPF Rare Urine Mucus (Negative) Negative Urine Other (Negative) Moderate yeast Ur Culture Indicated? Yes Urine Glucose (Negative) mg/dL Negative ECG Data Attestation: I personally reviewed and interpreted this ECG (s) as follows: Interpretation: #1 -- Rate of 151, sinus, no acute ST elevation or depression. QTc 494. QRS 94. #2 --Rate of 116, atrial fibrillation. QTc 478. QRS 104. HPI General Mode of arrival: ambulatory . Date/Time Provider Initiated Documentation: 05/01/19 14:18 . Limitations to Documentation: no limitations . Information obtained by: patient . History of Present Illness 59 year old M presents to the emergency department with the chief complaint of Shortness of breath, diaphoretic, abdominal pain, Patient started experiencing this minute(s) (30) and it has been intermittent. No relieving factors improve symptom(s), No exacerbating factors reported . Patient notes cough (Dry), nausea/vomiting (Nausea, no vomiting) and shortness of breath; denies chest pain and fever/chills. Related Data Home Medications Medication Instructions Recorded Confirmed cyanocobalamin (vitamin B-12) 1,000 mcg PO DAILY 12/23/17 05/01/19 ferrous sulfate 325 mg PO BID #0 tab 12/31/17 05/01/19 magnesium chloride [Mag 64] 64 mg PO BID #0 tab 12/18/18 03/07/20 terazosin 4 mg PO BID #0 cap 02/10/18 05/01/19 Centrum Complete 1 tab PO DAILY 03/01/18 05/01/19 ascorbic acid (vitamin C) [Vitamin 1 tab PO BID 03/01/18 05/01/19 C] acidophilus-pectin, citrus 1 cap PO TID #0 tab 03/24/18 05/01/19 Eliquis 5 mg PO BID #60 tab 06/19/18 05/01/19 insulin aspart U-100 [Novolog See Rx Instructions .ROUTE 06/19/18 05/01/19 Flexpen U-100 Insulin] .COMPLEX #15 ml melatonin 6 mg PO HS #30 tab 06/19/18 05/01/19 pantoprazole 40 mg PO DAILY #60 tab 06/19/18 05/01/19 sodium bicarbonate 650 mg PO TID #90 tab 06/19/18 05/01/19 calcium carbonate-vitamin D3 1 tab PO BID 07/09/18 05/01/19 [Calcium 500 + D] venlafaxine [Effexor XR] 112.5 mg PO DAILY 10/23/18 05/01/19 acetaminophen [Tylenol] 1,000 mg PO TID 01/08/19 05/01/19 gabapentin 300 mg PO TID 01/08/19 05/01/19 Zyrtec 10 mg PO DAILY 02/23/19 05/01/19 amlodipine 10 mg PO DAILY 02/26/19 05/01/19 levothyroxine 12.5 mcg PO DAILY@0600 02/26/19 05/01/19 Lantus Solostar U-100 Insulin See Rx Instructions .ROUTE .COMPLEX 03/15/19 05/01/19 insulin aspart U-100 10 unit SC AC #15 ml 03/19/19 05/01/19 prednisone See Rx Instructions .ROUTE 03/19/19 05/01/19 .COMPLEX #30 tab risperidone [Risperdal] 2 mg PO HS #0 tab 03/19/19 05/01/19 clonidine HCl [Catapres] 0.2 mg PO TID 05/01/19 05/01/19 metoprolol tartrate 25 mg PO BID 05/01/19 05/01/19 Previous Rx's Medication Instructions Recorded ferrous sulfate 325 mg PO BID #0 tab 12/31/17 magnesium chloride [Mag 64] 64 mg PO BID #0 tab 02/10/18 terazosin 4 mg PO BID #0 cap 02/10/18 acidophilus-pectin, citrus 1 cap PO TID #0 tab 03/24/18 Eliquis 5 mg PO BID #60 tab 06/19/18 insulin aspart U-100 [Novolog See Rx Instructions .ROUTE 06/19/18 Flexpen U-100 Insulin] .COMPLEX #15 ml melatonin 6 mg PO HS #30 tab 06/19/18 pantoprazole 40 mg PO DAILY #60 tab 06/19/18 sodium bicarbonate 650 mg PO TID #90 tab 06/19/18 insulin aspart U-100 10 unit SC AC #15 ml 03/19/19 prednisone See Rx Instructions .ROUTE 03/19/19 .COMPLEX #30 tab risperidone [Risperdal] 2 mg PO HS #0 tab 03/19/19 Allergies Allergy/AdvReac Type Severity Reaction Status Date / Time lisinopril Allergy Unverified 05/01/19 23:53 General Stated Complaint: Palpitatns YVES: 1 Review of Systems All systems reviewed & are unremarkable except as noted in HPI and below Constitutional Constitutional: Reports as per HPI, Denies chills and Denies fever(s) Eyes Eyes: Denies blurry vision ENT Ears, Nose, Mouth, and Throat: Denies dizziness, Denies sore throat and Denies throat swelling Cardiovascular Cardiovascular: Denies chest pain and Reports dyspnea Respiratory Respiratory: Reports cough and Reports dyspnea Gastrointestinal Gastrointestinal: Reports abdominal pain, Denies diarrhea, Reports nausea and Denies vomiting Genitourinary Genitourinary: Denies hematuria and Denies dysuria Musculoskeletal Musculoskeletal: Denies back pain and Denies numbness Integumentary/Breasts Skin/Breast: Denies lesions and Denies rash Neurologic Neurologic: Denies dizziness, Denies focal weakness and Denies numbness Allergic/Immunologic Allergic/Immunologic: Denies throat swelling [facility] Social History Smoking/Tobacco Use Status: Former Tobacco Use Alcohol Intake: former Drug use: Rarely Substance use type: marijuana Housing: [facility] Do you feel safe at home: Yes Do you feel safe in your relationship?: Yes Exam Const General: cooperative and ill appearing chronically Orientation: alert, awake and oriented x3 HENMT Head: normal to inspection Ears: hearing grossly normal bilaterally and external ears normal General nose exam: external nose normal Face and sinus: normal facial exam Mouth: oral mucosae normal and moist mucous membranes Eyes General: appearance normal, both eyes and all related structures Eyelids: eyelids normal EOM: EOM intact bilaterally Neck Neck: normal visual inspection Lymphatic: no lymphadenopathy noted Chest Chest: normal inspection of the chest Resp Effort & Inspection: normal respiratory effort and able to speak in complete sentences Auscultation: other (Diminished breath sounds right side of chest) Cardio Rate: tachycardic Rhythm: regular rhythm GI Inspection: normal to inspection and obesity Palpation: soft, not firm, no guarding, no hepatosplenomegaly, no masses and tender in the epigastrum Auscultation: hypoactive bowel sounds Skin General skin exam: no rashes or lesions noted Neuro General: alert and awake Cognition: normal cognition Speech: speech normal Gait: normal gait Motor: muscle tone normal throughout Sensory Exam: no sensory deficits noted Extrem General: normal to inspection, full ROM and normal capillary refill Psych Appearance: grossly normal Mental Status: mental status grossly normal Speech and Movement: speech and movement normal Affect: normal affect Thought Process: normal Course Vital Signs Vital signs: Vital Signs Temperature 97.5 F L 05/01/19 14:15 Pulse 150 H 05/01/19 14:15 Respiratory Rate 40 H 05/01/19 14:15 Blood Pressure 111/78 05/01/19 14:15 Pulse Oximetry 98 05/01/19 14:15 Temperature 97.5 F L 05/01/19 14:15 Temperature Source Skin 05/01/19 14:15 Pulse 150 H 05/01/19 14:15 Respiratory Rate 40 H 05/01/19 14:15 Respiratory Effort 05/01/19 14:15 Blood Pressure 111/78 05/01/19 14:15 Blood Pressure Position Sitting 05/01/19 14:15 Pulse Oximetry 98 05/01/19 14:15 Oxygen Delivery Method Room Air 05/01/19 14:15 Oxygen Flow Rate 0 05/01/19 14:15 Pain Level 0 05/01/19 14:15
[2019-05-01] MEDS: Albuterol/Ipratropium 3 ML UPD VIAL (14:30)
[2019-05-01 14:32] LABS: Lactate 0.9 mmol/L (0.6-1.4)
[2019-05-01 14:33] LABS: Abs Immature Grans 0.17 k/cumm (0.0-0.09); Absolute Basophil Count 0.05 k/cumm (0.0-0.2); Absolute Eosinophil Count 0.12 k/cumm (0.0-0.7); Absolute Lymphocyte Count 0.77 k/cumm (1.2-3.4); Absolute Monocyte Count 0.92 k/cumm (0.11-0.7); Basophils % 0.3; Eosinophils % 0.7; HCT 32.3 % (40.0-50.0); Lymphocytes % 4.7; Mean Corp. HGB Concentration 27.9 g/dL (32.0-36.0); Mean Corpuscular Hemoglobin 22.1 pg (27.0-33.0); Mean Corpuscular Volume 79.2 fL (80-95); Mean Platelet Volume 9.7 fL (8.0-11.0); Monocytes % 5.6; Neutrophils % 87.7; Platelet Count 509 x1000/uL (130-400); RBC 4.08 m/cumm (4.50-6.00); RBC Distribution Width 16.6 % (11.8-14.1); White Blood Cell Count 16.44 k/cumm (4.4-10.8)
[2019-05-01 14:35] LABS: Absolute Neutrophil Count 14.42 k/cumm (1.2-6.7)
[2019-05-01] MEDS: Normal Saline 500 ML IV ×2 (14:45→21:40)
--- NOTE | 2019-05-01 14:45 | NUR.NOTE ---
Nursing Note: PT received 500ml NS bolus by EMS en route to [facility] ED.
[2019-05-01 14:50] LABS: Anisocytosis 2+; Diff Comment RBC Morph Reviewed; Hypochromasia 2+; Microcytosis 2+; Ovalocytes 2+; Poikilocytes 2+; Polychromasia Present
[2019-05-01 14:53] LABS: INR 1.1 (0.9-1.1); PTT Activated 27.4 sec (21.0-31.4); Prothrombin Time 11.5 sec (9.3-11.0)
[2019-05-01 14:59] LABS: ALT 12 U/L (16-63); AST 8 U/L (15-37); Albumin 2.5 g/dL (3.4-5.0); Alkaline Phosphatase 111 U/L (46-116); Anion Gap 5.2 mmol/L (3-11); BUN 54 mg/dL (7-18); Bilirubin, Total 0.5 mg/dL (0.2-1.0); CO2 29.8 mmol/L (21.0-32.0); CREATININE 2.45 mg/dL (0.70-1.30); Calcium 8.3 mg/dL (8.5-10.1); Chloride 108 mmol/L (98-107); Glucose 239 mg/dL (74-106); Lipase 62 U/L (73-393); Magnesium 1.9 mg/dL (1.8-2.4); Potassium 5.8 mmol/L (3.5-5.1); Sodium 143 mmol/L (136-145); Total Protein 6.7 g/dL (6.4-8.2); Troponin I < 0.05 ng/Ml (<0.06)
--- NOTE | 2019-05-01 15:00 | DI.CT_ITS ---
EXAM: CT CHEST/ABD/PEL WO CLINICAL HISTORY: hypoxia, upper abd pain, r/o chf, pneumonia,. TECHNIQUE: Imaging Protocol: Axial computed tomography images with coronal and sagittal reformatted images were created and reviewed CONTRAST MATERIAL: Intravenous: Omnipaque 350 Contrast volume:structured data in ml Oral: yes / no COMPARISON: CT ABDOMEN PELVIS WO from 06/08/2018 FINDINGS: CHEST: Thyroid: Grossly unremarkable Tracheobronchial tree: Patent where visualized. Mediastinum and Jocelyn: No dominant adenopathy or fluid collection. Calcified lymph nodes in the medias tinum consistent with prior granulomatous disease. Pulmonary parenchyma: Atelectatic changes seen adjacent to the bilateral pleural effusions. Infiltra te seen in the upper lobes bilaterally. This may represent atelectasis or pneumonia. No architectur al distortion. Pleura: Small to moderate bilateral pleural effusions. Lymph nodes: Calcified lymph nodes in the mediastinum consistent with prior granulomatous disease. Aorta: Thoracic portion non-dilated. Heart: No cardiomegaly or pericardial effusion. No coronary artery calcifications. Bones: Degenerative changes. Soft tissues: Findings of gynecomastia. ABDOMEN: Liver: Normal density. No measurable mass. Gallbladder and biliary tract: Cholelithiasis. Gallbladder wall thickening and pericholecystic stran ding. No biliary ductal dilatation. Pancreas: Normal density, no abnormal calcifications or inflammatory process. Spleen: Upper limits of normal in size. Kidneys: Normal size, contour and axis. No radiodense stones or obstructive uropathy. No masses seen. Adrenal glands: No masses seen. Aorta: Abdominal portion non-dilated. Inferior vena cava filter in place. Lymph nodes: Within normal limits. PELVIS: Bladder: Decompressed urinary bladder. This limits evaluation. Bowel: Colectomy. Right lower quadrant ostomy. No evidence of bowel obstruction. No findings to rivera ggest an acute appendicitis. Peritoneal cavity: Small amount of abdominal and pelvic ascites. Bones: Degenerative changes in the spine. Lipoma in the anterior soft tissues of the right hip. Reproductive organs: Within normal limits. IMPRESSION: 1. Cholelithiasis, gallbladder wall thickening and pericholecystic fluid which may represent acute ch olecystitis. Please correlate clinically. 2. No biliary ductal dilatation. 3. Small amount of abdominal and pelvic ascites. 4. Bilateral pleural effusions. Associated subjacent infiltrates which may represent atelectasis 5. Upper lobe infiltrates which may represent atelectasis or pneumonia. DATA REPOSITORY: All CT scans at this facility are submitted to the National Radiology Data Registry (NRDR) Dose Index Registry (DIR) with the [employer] ([employer]). RADIATION OPTIMIZATION: All CT scans at this facility use at least one of these dose optimization te chniques: automated exposure control; mA and/or kV adjustment per patient size (includes targeted exa ms where dose is matched to clinical indication); or iterative reconstruction.
[2019-05-01 15:02] LABS: NT-proBNP 15555 pg/mL (<300)
[2019-05-01 15:16] LABS: Bilirubin Negative (Negative); Blood Trace-intact (Negative); Clarity Cloudy (Clear); Glucose Negative (Negative); Ketones Negative (Negative); Leukocyte Esterase Moderate (Negative); Nitrite Negative (Negative); Specific Gravity 1.025 (1.005-1.025); Urobilinogen 1 EU/dL (Up TO 0.2)
[2019-05-01 15:22] LABS: WBC >50 HPF (0-5)
[2019-05-01 15:23] LABS: Bacteria Rare HPF (Negative); C & S Indicated? Yes; Crystals Negative HPF (Negative); Epithelial Cells Negative HPF (Negative); Mucus Negative (Negative); Other Cells Moderate Yeast (Negative)
[2019-05-01] MEDS: Furosemide 40 MG/4 ML VIAL IVP (15:30)
[2019-05-01] MEDS: Albuterol/Ipratropium 3 ML UPD VIAL UPD (16:04)
[2019-05-01] MEDS: dilTIAZem 25 MG/5 ML VIAL 15 MG IVP (16:05)
[2019-05-01] MEDS: methylPREDNISolone SUCC 125 MG VIAL IVP (16:05)
[2019-05-01] MEDS: PIPERACILLIN/TAZO 3.375 GM in Normal Saline 50 ML IVPB (16:30)
[2019-05-01] MEDS: Acetaminophen 500 MG TAB 1000 MG PO ×2 (16:31→21:22)
--- NOTE | 2019-05-01 16:32 | DI.VRAD_ITS ---
PROCEDURE INFORMATION: Exam: CT Chest Without Contrast Exam date and time: 05/01/2019 3:12 PM Age: 59 years old Clinical indication: Hypoxia, upper abd pain, R/O CHF, pneumonia; Prior surgery; date: 6+ months TECHNIQUE: Imaging protocol: Computed tomography of the chest without contrast. COMPARISON: CT chest/abd wo 05/03/2018 10:18 AM FINDINGS: Lungs: Minimal posterior lower lobe compressive atelectasis. Mild posterior left upper lobe infiltrate. Right lung areas of linear parenchymal scarring or subsegmental collapse / atelectasis. Pleural space: Small bilateral pleural fluid collections. Heart: Unremarkable. No cardiomegaly. No pericardial effusion. Aorta: Unremarkable. No aortic aneurysm. Lymph nodes: Unremarkable. No enlarged lymph nodes. Bones/joints: Spinal degenerative changes. Soft tissues: Gynecomastia. Other findings: Evidence of old granulomatous disease. IMPRESSION: 1. Small bilateral pleural fluid collections with adjacent minimal posterior lower lobe compressive atelectasis. 2. Mild posterior left upper lobe infiltrate. 3. Right lung areas of linear parenchymal scarring or subsegmental collapse / atelectasis. PROCEDURE INFORMATION: Exam: CT Abdomen And Pelvis Without Contrast Exam date and time: 05/01/2019 3:12 PM Age: 59 years old Clinical indication: Hypoxia, upper abd pain, R/O CHF, pneumonia; Prior surgery; date: 6+ months TECHNIQUE: Imaging protocol: Computed tomography of the abdomen and pelvis without contrast. COMPARISON: CT chest/abd wo 05/03/2018 10:18 AM FINDINGS: Liver: Normal. No mass. Gallbladder and bile ducts: Cholelithiasis with mild wall thickening and pericholecystic stranding suggesting acute cholecystitis. No biliary tract dilatation. Pancreas: Normal. No ductal dilation. Spleen: Borderline splenomegaly. Adrenals: Normal. No mass. Kidneys and ureters: Normal. No hydronephrosis. Stomach and bowel: Physical katty in the posterior rectal region. Lower right abdominal ostomy. Appendix: No evidence of appendicitis. Intraperitoneal space: Small amount of free fluid in the abdomen. Vasculature: IVC filter. Lymph nodes: Unremarkable. No enlarged lymph nodes. Bladder: Decompressed urinary bladder. Reproductive: Unremarkable as visualized. Bones/joints: Spinal degenerative changes. Soft tissues: Areas of subcutaneous soft tissue edema. Lipoma within the soft tissues anterior to the right hip. IMPRESSION: 1. Cholelithiasis with mild wall thickening and pericholecystic stranding suggesting acute cholecystitis. 2. No biliary tract dilatation. 3. Small amount of free fluid in the abdomen. Dictated and Authenticated by: Tien Aktinson MD. Ordering:JORGE Oglesby MD
--- NOTE | 2019-05-01 16:36 | NUR.NOTE ---
Nursing Note: IV charted in the left AC. This is incorrect, unable to edit charting. The correct placement is in the right AC (20G) placed by EMS.
--- NOTE | 2019-05-01 16:45 | HPE_ITS ---
Date of service: 05/01/19 Time of Service: 16:45 Assessment and Plan Assessment and plan (1) Cholelithiasis and cholecystitis without obstruction: Status: Acute Assessment and plan: His symptoms of anorexia and abdominal discomfort may very well be related to his gallbladder disease. Chronic cholelithiasis now with CT findings suggesting cholelithiasis has led to cholecystitis. He is not febrile. He does not have laboratory evidence of biliary tract obstruction. He does have an elevated white count but also other possible causes for this. Blood cultures have been drawn. Dr. Sandhu has been made aware of the situation. Empiric treatment with Zosyn dosed for renal function. (2) Acute kidney injury superimposed on chronic kidney disease: Status: Acute Assessment and plan: Suspect there is a prerenal component to this. He is not far from his baseline. Balance between hydration and diuresis with suspected exacerbation of heart failure. Monitor urine output BUN and creatinine. (3) Atrial flutter, paroxysmal: Status: Acute Assessment and plan: It is not clear if his A. fib flutter with rapid rate is a primary or secondary event. It is possible is a primary event leading to some rate related to exacerbation of heart failure. It may be a secondary event to cholelithiasis/cystitis or UTI. He has been started on a diltiazem drip. I am decreasing his terazosin and clonidine doses in order to provide some blood pressure room in the event that we need to push the dose of diltiazem higher. I am increasing his metoprolol to 3 times daily. Monitor pulse rate and blood pressure response to these interventions. Continue chronic anticoagulation with apixaban. (4) UTI (urinary tract infection): Status: Acute Assessment and plan: Pyuria, no symptoms. Culture pending. Started on Zosyn for above reason. (5) Acute exacerbation of CHF (congestive heart failure): Status: Acute Assessment and plan: Probably rate related. Cycle troponins. Ec hocardiogram from February shows good LVEF and no significant valve disease. He received 40 mg of IV Lasix in the ER. I am reluctant to push further diuretics at this point and would like to see what his responses. BiPAP support which has been helpful in the past with CHF exacerbation and his COPD. (6) Leg wound, left: Status: Acute Assessment and plan: Continue topical care. Legs not obviously cellulitic but certainly is a possible entry point for bacterial infection/bacteremia. (7) Acute adrenal insufficiency: Status: Acute Assessment and plan: Not hypotensive at this point. Tachycardia may be a primary or secondary event. I will place him on stress dose daily rides at least for the next 24 hours. (8) Diabetes mellitus: Status: Chronic Assessment and plan: Not being sure where his blood sugars are going, probably up, I am reducing his long-acting insulin slightly, sliding scale short acting insulin. Adjust doses based on blood sugars. 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 Clonidine dose decreased slightly to provide some room for blood pressure manipulation. (10) Hypertension: Status: Chronic Assessment and plan: Change in clonidine and terazosin as noted above. Continue amlodipine. Metoprolol dose increased and he is now on IV diltiazem. Monitor blood pressure response. (11) Rheumatoid arthritis: Status: Chronic Assessment and plan: Reports that scheduled acetaminophen every 8 hours w as not effective enough and would like the interval decreased to every 6 hours. I am going to hold at 8 hours for now and see how he does. History of Present Illness History of Present Illness Chief Complaint: Does not feel good Narrative: Mr. Corley is a 59-year-old chronically ill man with multiple chronic problems including diabetes, paroxysmal A. fib flutter, diastolic heart failure, iatrogenic adrenal insufficiency from chronic steroid use for management of rheumatoid arthritis (now inactive) and inflammatory bowel disease (now inactive, bipolar, recurrent urinary tract infections, chronic kidney disease. He is residing at the [facility] and was sent over when he complained of anorexia, mild nausea, vague mid abdominal discomfort and simply not feeling well. He was also tachycardic. No reports of vomiting or diarrhea. No reports of fever. He denied cough, chest pain, dysuria. He has not had any unusual output from his colostomy bag. He has a large ulcer on his left lower leg with a dressing that gets changed every 3 days and denies any increased pain or discharge. On presentation he was tachycardic with a narrow complex tachycardia. He was given a bolus of diltiazem showing underlying A. fib flutter when his heart rate slowed but then increased again and he was started on a diltiazem drip. He had a CT scan of chest abdomen showing small pleural effusions, known gallstones with stranding around the gallbladder and gallbladder wall thickening. He had normal LFTs. Mildly elevated white blood cell count. Pyuria on urinalysis. BNP quite elevated. Initial troponin negative. He was given a bolus of steroids, blood cultures were drawn and started on Zosyn. He is being admitted for further diagnostic interventions and management of his multiple problems. He reports being hospitalized at [facility] in early March. I cannot access his records in the [facility] system. Review of Systems Narrative: As per HPI. Denies choking episodes. Reports appetite down this morning. No blood in his ostomy. No cough or wheezing. No chest pains. No dysphagia. No dysuria. Reports upper extremity arthritic pain at baseline, responsive to acetaminophen but would like the interval between doses decreased. [facility] Social History Smoking/Tobacco Use Status: Former Tobacco Use Alcohol Intake: former Drug use: Rarely Substance use type: marijuana Housing: custodial Do you feel safe at home: Yes Do you feel safe in your relationship?: Yes Meds Home Medications and Allergies Home Medications Medication Instructions Recorded Confirmed Type cyanocobalamin (vitamin B-12) 1,000 mcg PO DAILY 12/23/17 05/01/19 History ferrous sulfate 325 mg PO BID #0 tab 12/31/17 05/01/19 Rx magnesium chloride [Mag 64] 64 mg PO BID #0 tab 02/10/18 05/01/19 Rx terazosin 4 mg PO BID #0 cap 02/10/18 05/01/19 Rx Centrum Complete 1 tab PO DAILY 03/01/18 05/01/19 History ascorbic acid (vitamin C) [Vitamin 1 tab PO BID 03/01/18 05/01/19 History C] acidophilus-pectin, citrus 1 cap PO TID #0 tab 03/24/18 05/01/19 Rx Eliquis 5 mg PO BID #60 tab 06/19/18 05/01/19 Rx insulin aspart U-100 [Novolog See Rx Instructions .ROUTE 06/19/18 05/01/19 Rx Flexpen U-100 Insulin] .COMPLEX #15 ml melatonin 6 mg PO HS #30 tab 06/19/18 05/01/19 Rx pantoprazole 40 mg PO DAILY #60 tab 06/19/18 05/01/19 Rx sodium bicarbonate 650 mg PO TID #90 tab 06/19/18 05/01/19 Rx calcium carbonate-vitamin D3 1 tab PO BID 07/09/18 05/01/19 History [Calcium 500 + D] venlafaxine [Effexor XR] 112.5 mg PO DAILY 10/23/18 05/01/19 History acetaminophen [Tylenol] 1,000 mg PO TID 01/08/19 05/01/19 History gabapentin 300 mg PO TID 01/08/19 05/01/19 History Zyrtec 10 mg PO DAILY 02/23/19 05/01/19 History amlodipine 10 mg PO DAILY 02/26/19 05/01/19 History levothyroxine 12.5 mcg PO DAILY@0600 02/26/19 05/01/19 History Lantus Solostar U-100 Insulin See Rx Instructions .ROUTE .COMPLEX 03/15/19 05/01/19 History insulin aspart U-100 10 unit SC AC #15 ml 03/19/19 05/01/19 Rx prednisone See Rx Instructions .ROUTE 03/19/19 05/01/19 Rx .COMPLEX #30 tab risperidone [Risperdal] 2 mg PO HS #0 tab 03/19/19 05/01/19 Rx clonidine HCl [Catapres] 0.2 mg PO TID 05/01/19 05/01/19 History metoprolol tartrate 25 mg PO BID 05/01/19 05/01/19 History Allergies Allergy/AdvReac Type Severity Reaction Status Date / Time No Known Allergies Allergy Verified 05/01/19 14:27 Exam Narrative Exam Narrative: Lying on a stretcher he is awake, talks in full sentences and does not appear in any acute respiratory distress. He has a little bit of audible wheezing on expiration. No conjunctival injection. Poor dentition. No oral lesions. Cannot see neck vein well because of skin folds. Lungs with somewhat bronchial breath sounds throughout, diminished at the bases. Faint intermittent late expiratory wheezing in the upper lung barnard, I do not hear any crackles. Heart rhythm is rapid, somewhat irregular, no S3-S4 or murmur heard. Abdomen is obese soft bowel sounds are present. There is brown liquid soft stool in his ostomy bag. No tenderness in the right upper quadrant or elsewhere. No mass or rebound. Left lower extremity has a 15 cm x 8 cm ulcer with some discharge in the granulation base. His left leg is a little bit warmer than right. It is not any more tender to palpation than his right lower leg. He has good pulse in the left foot as he does in the right. There are some superficial erosions on the left posterior leg with no discharge or surrounding erythema. He has chronic deformities from arthritis of his hands with flexion contractures at the knees and hips. He requires assistance for sitting up but can participate in this activity. He knows he is in the hospital, he recognizes me and my name. Results EKG shows A. fib flutter. CT scan chest with small bilateral pleural effusions, possible small left upper lobe infiltrate and atelectasis at the right lung base. CT abdomen and pelvis showing cholelithiasis with mild gallbladder wall thickening and carson-colic stranding, no biliary dilatation. Labs Result diagrams: 05/01/19 14:20 05/01/19 14:20 Labs: Laboratory Results - last 24 hr 05/01/19 05/01/19 05/01/19 14:20 14:20 14:20 WBC 16.44 H RBC 4.08 L Hgb 9.0 L Hct 32.3 L MCV 79.2 L MCH 22.1 L MCHC 27.9 L RDW 16.6 H Plt Count 509 H MPV 9.7 Immature Gran % 1.0 Neutrophils % 87.7 Lymphocytes % 4.7 Monocytes % 5.6 Eosinophils % 0.7 Basophils % 0.3 Absolute Neutrophils 14.42 H Absolute Lymphocytes 0.77 L Absolute Monocytes 0.92 H Absolute Eosinophils 0.12 Absolute Basophils 0.05 Differential Comment Rbc morph reviewed RBC Morphology See below Polychromasia Present Hypochromasia 2+ Poikilocytosis 2+ Anisocytosis 2+ Microcytosis 2+ Ovalocytes 2+ PT 11.5 H INR 1.1 APTT 27.4 Sodium 143 Potassium 5.8 H Chloride 108 H Carbon Dioxide 29.8 Anion Gap 5.2 BUN 54 H Creatinine 2.45 H Estimated GFR/1.73 m2 27.10 Glucose 239 H Lactate Calcium 8.3 L Magnesium 1.9 Total Bilirubin 0.5 AST 8 L ALT 12 L Alkaline Phosphatase 111 Troponin I < 0.05 NT-Pro-B Natriuret Pep Total Protein 6.7 Albumin 2.5 L Lipase 62 Urine Color Urine Clarity Urine pH Ur Specific [place] Urine Protein Urine Ketones Urine Blood Urine Nitrite Urine Bilirubin Urine Urobilinogen Ur Leukocyte Esterase Urine RBC Urine WBC Ur Epithelial Cells Urine Crystals Urine Bacteria Urine Mucus Urine Other Ur Culture Indicated? Urine Glucose 05/01/19 05/01/19 05/01/19 14:20 14:20 14:58 WBC RBC Hgb Hct MCV MCH MCHC RDW Plt Count MPV Immature Gran % Neutrophils % Lymphocytes % Monocytes % Eosinophils % Basophils % Absolute Neutrophils Absolute Lymphocytes Absolute Monocytes Absolute Eosinophils Absolute Basophils Differential Comment RBC Morphology Polychromasia Hypochromasia Poikilocytosis Anisocytosis Microcytosis Ovalocytes PT INR APTT Sodium Potassium Chloride Carbon Dioxide Anion Gap BUN Creatinine Estimated GFR/1.73 m2 Glucose Lactate 0.9 Calcium Magnesium Total Bilirubin AST ALT Alkaline Phosphatase Troponin I NT-Pro-B Natriuret Pep 34876 H Total Protein Albumin Lipase Urine Color Yellow Urine Clarity Cloudy Urine pH 6.0 Ur Specific [place] 1.025 Urine Protein 100 H Urine Ketones Negative Urine Blood Trace-intact H Urine Nitrite Negative Urine Bilirubin Negative Urine Urobilinogen 1 Ur Leukocyte Esterase Moderate Urine RBC Urine WBC >50 H Ur Epithelial Cells Negative Urine Crystals Negative Urine Bacteria Rare Urine Mucus Negative Urine Other Moderate yeast Ur Culture Indicated? Yes Urine Glucose Negative Last Vital Signs Temp 36.4 C L 05/01/19 14:15 Pulse 71 05/01/19 16:31 Resp 26 H 05/01/19 16:31 BP 109/73 05/01/19 16:31 Pulse Ox 96 05/01/19 16:31
[2019-05-01] MEDS: dilTIAZem 125 MG in Normal Saline 100 ML IV (16:57)
--- NOTE | 2019-05-01 17:07 | NUR.NOTE ---
at 1707 hrs I conducted the MRSA swab on OB inserting a swab in each nostril
--- NOTE | 2019-05-01 17:25 | SCONE_ITS ---
Date of service: 05/02/19 Time of Service: 18:21 Assessment and Plan Assessment and plan (1) Cholelithiasis and cholecystitis without obstruction: Status: Acute Assessment and plan: The patient has acute cholecystitis based on CT along with many other medical issues. He does not seem particularly symptomatic, some of the stranding may be related to CHF. His LFTs are normal and WBC has also normalized. He has been treated for this condition before in 2018 with a percutaneous cholecystostomy. This is the best option for him if needed since he is not a surgical candidate. Can consider US for further evaluation if symptoms indicate. The patient is getting transferred due to worsening renal function. History of Present Illness Narrative: Patient admitted yesterday with atrial fibrillation with RVR and renal failure. He had a CT scan that showed possible acute cholecystitis with a thickened gallbladder wall and some pericholecystic fluid. He denies significant abdominal pain today and was able to tolerate PO. [facility] Medical History Acromegaly (Chronic) Acute on chronic kidney failure (Resolved) Adrenal insufficiency (Chronic) Ambulatory dysfunction (Chronic) Anemia (Chronic) Atrial flutter, paroxysmal (Chronic) Back pain (Chronic 06/21/13) CAD (coronary artery disease) (Chronic) Cardiopulmonary arrest with successful resuscitation (Resolved) Cholelithiasis (Chronic) Chronic anxiety (Chronic) Chronic bipolar disorder (Chronic) a. With history of psychosis. Chronic cholecystitis (Chronic) Chronic insomnia (Chronic) Chronic pain (Chronic) On both Methadone and Fentanyl as well as Ultram and Naproxen. CKD (chronic kidney disease) (Chronic) Complicated UTI (urinary tract infection) (Resolved) Diabetes mellitus (Chronic) Diabetic foot ulcer (Chronic) Diabetic ulcer of toe associated with diabetes mellitus due to underlying condition, with bone involvement without evidence of necrosis (Inactive) 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 (Resolved) Dyslipidemia (Chronic) Elevated troponin I level (Resolved) Endocarditis due to Staphylococcus (Resolved) Heme positive stool (Resolved) Hemorrhagic cystitis (Chronic) Hyperkalemia (Acute) Hypertension (Chronic) Hypomagnesemia (Chronic) Hypothyroidism (Chronic) Impaired mobility and ADLs (Chronic) Inability to get out of bed (Chronic 06/21/13) Lactic acidosis (Resolved) MRSA bacteremia (Resolved) Obesity (Chronic) a. Obesity though he has had significant weight loss since last seen. Osteoarthritis of both knees (Chronic) Severe. a. [id number] bilateral knees. 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 2 diabetes mellitus (Resolved) Palliative care encounter (Chronic) DObbertin Pedal edema (Chronic) Poor self care (Chronic 06/21/13) Poorly controlled type 2 diabetes mellitus with circulatory disorder (Chronic) Presence of IVC filter (Acute) Pulmonary hypertension (Chronic) Rheumatoid arthritis (Chronic) Sepsis (Resolved) Septic arthritis of elbow, right (Inactive) Toxic metabolic encephalopathy (Resolved) Toxic metabolic encephalopathy (Resolved) Ulcerative colitis (Chronic) UTI (urinary tract infection) (Resolved) UTI (urinary tract infection) due to Enterococcus (Resolved) Surgical History Arthroplasty of knee (Resolved 03/18/12) irrigation and lavage right Fracture, Open Treatment (Resolved) 06/06/17-[facility] S/P ORIF RIGHT DISTAL HUMERUS FRACTURE History of insertion of T-tube into biliary tract (Chronic) S/P colectomy (Chronic) Social History Smoking/Tobacco Use Status: Former Tobacco Use Alcohol Intake: former Drug use: Rarely Substance use type: marijuana Housing: care home Do you feel safe at home: Yes Do you feel safe in your relationship?: Yes Exam Narrative Exam Narrative: Alert, no acute distress Abdomen soft, nondistended. Mild LUQ and RUQ tenderness but nothing focal or severe. Results Last Vital Signs Temp 97.5 F L 05/01/19 14:15 Pulse 138 H 05/01/19 17:02 Resp 28 H 05/01/19 17:02 BP 100/79 05/01/19 17:02 Pulse Ox 96 05/01/19 17:02 Labs Result diagrams: 05/02/19 06:28 05/02/19 15:10 Labs: Laboratory Results - last 24 hr 05/01/19 05/01/19 05/01/19 14:20 14:20 14:20 WBC 16.44 H RBC 4.08 L Hgb 9.0 L Hct 32.3 L MCV 79.2 L MCH 22.1 L MCHC 27.9 L RDW 16.6 H Plt Count 509 H MPV 9.7 Immature Gran % 1.0 Neutrophils % 87.7 Lymphocytes % 4.7 Monocytes % 5.6 Eosinophils % 0.7 Basophils % 0.3 Absolute Neutrophils 14.42 H Absolute Lymphocytes 0.77 L Absolute Monocytes 0.92 H Absolute Eosinophils 0.12 Absolute Basophils 0.05 Differential Comment Rbc morph reviewed RBC Morphology See below Polychromasia Present Hypochromasia 2+ Poikilocytosis 2+ Anisocytosis 2+ Microcytosis 2+ Ovalocytes 2+ PT 11.5 H INR 1.1 APTT 27.4 Sodium 143 Potassium 5.8 H Chloride 108 H Carbon Dioxide 29.8 Anion Gap 5.2 BUN 54 H Creatinine 2.45 H Estimated GFR/1.73 m2 27.10 Glucose 239 H Lactate Calcium 8.3 L Magnesium 1.9 Total Bilirubin 0.5 AST 8 L ALT 12 L Alkaline Phosphatase 111 Troponin I < 0.05 NT-Pro-B Natriuret Pep Total Protein 6.7 Albumin 2.5 L Lipase 62 Urine Color Urine Clarity Urine pH Ur Specific [place] Urine Protein Urine Ketones Urine Blood Urine Nitrite Urine Bilirubin Urine Urobilinogen Ur Leukocyte Esterase Urine RBC Urine WBC Ur Epithelial Cells Urine Crystals Urine Bacteria Urine Mucus Urine Other Ur Culture Indicated? Urine Glucose 05/01/19 05/01/19 05/01/19 14:20 14:20 14:58 WBC RBC Hgb Hct MCV MCH MCHC RDW Plt Count MPV Immature Gran % Neutrophils % Lymphocytes % Monocytes % Eosinophils % Basophils % Absolute Neutrophils Absolute Lymphocytes Absolute Monocytes Absolute Eosinophils Absolute Basophils Differential Comment RBC Morphology Polychromasia Hypochromasia Poikilocytosis Anisocytosis Microcytosis Ovalocytes PT INR APTT Sodium Potassium Chloride Carbon Dioxide Anion Gap BUN Creatinine Estimated GFR/1.73 m2 Glucose Lactate 0.9 Calcium Magnesium Total Bilirubin AST ALT Alkaline Phosphatase Troponin I NT-Pro-B Natriuret Pep 23759 H Total Protein Albumin Lipase Urine Color Yellow Urine Clarity Cloudy Urine pH 6.0 Ur Specific [place] 1.025 Urine Protein 100 H Urine Ketones Negative Urine Blood Trace-intact H Urine Nitrite Negative Urine Bilirubin Negative Urine Urobilinogen 1 Ur Leukocyte Esterase Moderate Urine RBC Urine WBC >50 H Ur Epithelial Cells Negative Urine Crystals Negative Urine Bacteria Rare Urine Mucus Negative Urine Other Moderate yeast Ur Culture Indicated? Yes Urine Glucose Negative
[2019-05-01 18:12] LABS: Troponin I < 0.05 ng/Ml (<0.06)
[2019-05-01] MEDS: Normal Saline 1,000 ML 80 ML IV (18:39)
[2019-05-01] MEDS: Metoprolol 25 MG TAB PO (18:52)
[2019-05-01] MEDS: Hydrocortisone SOD SUC. 100 MG VIAL IVP (18:58)
[2019-05-01] MEDS: Insulin Aspart 300 UNITS/3 ML PEN SC (19:44)
[2019-05-01] MEDS: Normal Saline Flush 10 ML SYR IVP (19:49)
[2019-05-01 21:16] LABS: Troponin I < 0.05 ng/Ml (<0.06)
[2019-05-01] MEDS: Magnesium Chloride 64 MG TABCR PO (21:19)
[2019-05-01] MEDS: risperiDONE 1 MG TAB 2 MG PO (21:20)
[2019-05-01] MEDS: cloNIDine 0.1 MG TAB 0.2 MG PO (21:20)
[2019-05-01] MEDS: Melatonin 3 MG TAB 6 MG PO (21:20)
[2019-05-01] MEDS: Gabapentin 100 MG CAP 300 MG PO (21:21)
[2019-05-01] MEDS: Terazosin 2 MG CAP PO (21:22)
[2019-05-01] MEDS: Sodium Bicarbonate 650 MG TAB PO (21:22)
[2019-05-01] MEDS: Apixaban 5 MG TAB PO (21:23)
[2019-05-01] MEDS: Insulin Glargine 300 UNITS/3 ML PEN SC (21:27)
[2019-05-01] MEDS: PIPERACILLIN/TAZO 2.25 GM in Normal Saline 50 ML IVPB (21:29)
[2019-05-02] VITALS (45 sets, daily range): BP systolic 95–135; BP diastolic 51–97; PULSE 43–124; RESP 11–30; TEMP 36.2–36.8; O2SAT 5–99
[2019-05-02] MEDS: Metoprolol 25 MG TAB PO (03:03)
[2019-05-02] MEDS: Normal Saline Flush 10 ML SYR IVP ×3 (04:03→12:22)
[2019-05-02] MEDS: Hydrocortisone SOD SUC. 100 MG VIAL IVP ×2 (04:03→12:21)
[2019-05-02] MEDS: PIPERACILLIN/TAZO 2.25 GM in Normal Saline 50 ML IVPB ×3 (04:03→16:02)
[2019-05-02] MEDS: Levothyroxine 25 MCG TAB 12.5 MCG PO (06:16)
[2019-05-02 07:24] LABS: HCT 31.4 % (40.0-50.0); HGB 8.7 g/dL (13.5-17.5); Mean Corp. HGB Concentration 27.7 g/dL (32.0-36.0); Mean Corpuscular Volume 79.5 fL (80-95); Mean Platelet Volume 10.2 fL (8.0-11.0); Platelet Count 455 x1000/uL (130-400); RBC 3.95 m/cumm (4.50-6.00); RBC Distribution Width 16.7 % (11.8-14.1); White Blood Cell Count 8.88 k/cumm (4.4-10.8)
[2019-05-02 07:29] LABS: ALT 8 U/L (16-63); AST 10 U/L (15-37); Albumin 2.3 g/dL (3.4-5.0); Alkaline Phosphatase 103 U/L (46-116); Anion Gap 8.1 mmol/L (3-11); BUN 64 mg/dL (7-18); Bilirubin, Total 0.5 mg/dL (0.2-1.0); CO2 22.9 mmol/L (21.0-32.0); CREATININE 2.98 mg/dL (0.70-1.30); Calcium 7.9 mg/dL (8.5-10.1); Chloride 104 mmol/L (98-107); Estimated GFR 21.62 (mL/min/1.73m2); Sodium 135 mmol/L (136-145); Total Protein 6.3 g/dL (6.4-8.2)
[2019-05-02 07:46] LABS: Potassium 7.7 mmol/L (3.5-5.1)
[2019-05-02 07:47] LABS: Glucose 412 mg/dL (74-106)
[2019-05-02] MEDS: Furosemide 40 MG/4 ML VIAL IVP (09:02)
[2019-05-02] MEDS: Venlafaxine 37.5 MG CAPCR 112.5 MG PO (09:03)
[2019-05-02] MEDS: Magnesium Chloride 64 MG TABCR PO (09:03)
[2019-05-02] MEDS: Terazosin 2 MG CAP PO (09:03)
[2019-05-02] MEDS: Sodium Bicarbonate 650 MG TAB PO ×2 (09:03→13:42)
[2019-05-02] MEDS: Acetaminophen 500 MG TAB 1000 MG PO ×2 (09:03→13:43)
[2019-05-02] MEDS: Metoprolol 50 MG TAB PO (09:04)
[2019-05-02] MEDS: amLODIPine 5 MG TAB 10 MG PO (09:04)
[2019-05-02] MEDS: Pantoprazole 40 MG TABCR PO (09:04)
[2019-05-02] MEDS: Gabapentin 100 MG CAP 300 MG PO ×2 (09:04→13:42)
[2019-05-02] MEDS: Cetirizine 10 MG TAB PO (09:04)
[2019-05-02] MEDS: cloNIDine 0.1 MG TAB 0.2 MG PO (09:04)
[2019-05-02] MEDS: Apixaban 5 MG TAB PO (09:05)
[2019-05-02] MEDS: Cyanocobalamin 500 MCG TAB 1000 MCG PO (09:05)
[2019-05-02] MEDS: Insulin REGULAR-Human 100 UNITS/ML UNIT 10 UNITS IV ×2 (09:06→12:22)
[2019-05-02] MEDS: Insulin Glargine 300 UNITS/3 ML PEN SC (09:36)
--- NOTE | 2019-05-02 09:46 | NUR.NOTE ---
Nursing Note: At 0815 this nurse saw and acknowledged the now order for IV Humilin R 10U to be given and q4hr finger sticks to monitor. Dr. Gan discussed this was to decrease potassium levels and it would not be followed with D5 due to high blood glucose levels. He did not account for Aspart and he did appreciate the call, noting that he wanted the aspart held for this morning. This nurse then consulted pharmacy about administration as the syringes for insulin do not have leur locks and so this nurse requested that the insulin be diluted in 10ml NS syringe for administration and Gabbi Tello, pharmacist, noted that it was ok to do this. This method of administration was helpful in slowly pushing over 5 minutes. Natasha Koo RN verified as the second nurse for admin.
--- NOTE | 2019-05-02 09:49 | PDOC.CMIN ---
Care Management Initial Assess REASON FOR HOSPITALIZATION:: CHF, Paroxysmal A-flutter, Pyuria PAST MEDICAL HISTORY/PAST SURGICAL HISTORY:: CHF, Anemia, Anxiety, Back Pain, Bipolar Disorder, CAD, Cardiopulmonary arrest with successful resuscitation, cholelithiasis, anxiety, insomnia, chronic pain, CKD, Crohn's Disease, DM type 2 with diabetic neuropathy, diabetic foot ulcer, dyslipidemia, heme positive stool, hemorrhagic cystitis, hypertension, hypoandrogenism, hypothyroidism, impaired mobility and ADLs, Obesity, Pedal edema, Osteoarthritis of both knees, poor self care, poorly controlled DM2 with circulatory disorder, RA, TKA, Fracture ORIF R distal humerus fracture. 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 Brendan has a sister, Lian Hardy (P#[phone]) who lives in [facility] but they have limited contact. They do speak via phone every couple of weeks. he also has numerous nieces and nephews but states he rarely sees them. His sister is his only identified family support. Brendan enjoys reading and watching TV. CURRENT FUNCTIONAL STATUS:: Brendan is resting, minimal enagement today. ADVANCE DIRECTIVES:: [facility] on file Has patient been provided with information about the portal?: Yes Did the patient sign up for the portal?: No CODE STATUS:: Full Code INSURANCE COVERAGE / FINANCIAL ISSUES:: Medicare. Medicaid CURRENT HOME/COMMUNITY SERVICES/EQUIPMENT:: Brendan is a resident at the [facility]-the facility manages his service and equipment needs. PRIMARY CARE PHYSICIAN:: Dr. Renteria at the [facility] POTENTIAL DISCHARGE NEEDS:: Discharge follow up with provider at the [facility], referral for BIPAP and RT support. Transportation back to the [facility] coordinated by CM when ready. PATIENT/FAMILY EDUCATION NEEDS:: Review of discharge planning with the patient, and coordination, report to the [facility] for continuity of care. ANTICIPATED BARRIERS TO DISCHARGE:: None identified at this time. TRANSPORTATION:: [facility] wheelchair van, as [facility] does not currently have transportation available. PLAN:: Brendan will return to the [facility] when medically ready. CM will continue to provide ongoing support to patient discharge planning needs.
[2019-05-02] MEDS: Normal Saline 500 ML 50 ML IV (10:03)
--- NOTE | 2019-05-02 10:13 | PHA.ADMREV ---
Pharmacy Clinical Review - Admission Clinical Review (Last Reviewed 03/15/19 @ 11:08 by Ashanti Hayes MD) Atrial fibrillation with rapid ventricular response (Acute) Cholelithiasis and cholecystitis without obstruction (Acute) Leg wound, left (Acute) Acute exacerbation of CHF (congestive heart failure) (Acute) UTI (urinary tract infection) (Acute) Acute kidney injury superimposed on chronic kidney disease (Acute) Pneumonia (Acute) Acute cholecystitis (Acute) Acute adrenal insufficiency (Acute) lisinopril Allergy (Unverified 05/01/19 23:53) Height 6 ft 1 in Weight 109.3 kg - Renal Dosing Renal Dosing: BUN 64 mg/dL (7-18) H 05/02/19 06:28 Creatinine 2.98 mg/dL (0.70-1.30) H 05/02/19 06:28 Medications needing adjustments: Reviewed (Per globalrph Cockcroft & Gault (Adjusted BW): 34.2 (ml/min)) - Anticoagulation Anticoagulation: Hgb 8.7 g/dL (13.5-17.5) L 05/02/19 06:28 Hct 31.4 % (40.0-50.0) L 05/02/19 06:28 Plt Count 455 x1000/uL (130-400) H 05/02/19 06:28 INR 1.1 (0.9-1.1) 05/01/19 14:20 Creatinine 2.98 mg/dL (0.70-1.30) H 05/02/19 06:28 DVT Prohphylaxis: Reviewed Medications: Apixaban Therapeutic Anticoagulation: Reviewed Medications: Apixaban - Opiate Usage Evaluate Pain Scale/Pains Meds: Reviewed - Relevant Labs Sodium 135 mmol/L (136-145) L 05/02/19 06:28 Potassium 7.7 mmol/L (3.5-5.1) H* D 05/02/19 06:28 Chloride 104 mmol/L (98-107) 05/02/19 06:28 Magnesium 1.9 mg/dL (1.8-2.4) 05/01/19 14:20 Electrolytes, C-Reactive P, ESR: Reviewed (insulin reg IV bolus and patiromer ordered for hyperkalemia) - Antimicrobial Stewardship Antibiotic appropriateness: Reviewed (pip/tazo renally dosed for possible UTI) Surgical Abx d/c within 24 hr: N/A Culture review/Resistance: Reviewed (Bc and UC pending) - DM Control DM Control: Glucose 412 mg/dL (74-106) H D 05/02/19 06:28 Finger Stick Blood Glucose 415 Finger Stick Blood Glucose 388 Finger Stick Blood Glucose 388 Insulin Dosing: Reviewed (insulin R IV bolus this AM, aspart held this AM,) - Heart Failure/LA Heart Failure/LA: Troponin I < 0.05 ng/Ml (<0.06) 05/01/19 20:45 NT-Pro-B Natriuret Pep 90265 pg/mL (<300) H 05/01/19 14:20 EF%, ARYA's, B-Blockers, Diuretics: N/A - BP Control BP Control: Blood Pressure [Right Arm] 109/70 Blood Pressure [Right Arm] 123/72 Blood Pressure 132/78 Blood Pressure 126/75 Blood Pressure 109/70 Blood Pressure 118/70 Blood Pressure 131/74 Blood Pressure 133/76 Blood Pressure 123/72 Blood Pressure 119/72 Blood Pressure 130/89 If elevated: Reviewed - QTc Review If Elevated: Reviewed (478, pantoprazole, venlafaime, risperdone. all home meds) - IV to PO Switch IV Medications: Reviewed (Diltiazem infusion stopped, IV abx and IVF and IV solu-cortef otherwise meds PO) - Home Meds Home Med List reviewed: Reviewed (home meds not ordered:vit c, calcium, centrum, acidophius, ferrous sulfate, prednisone(on Iv solucortef))
[2019-05-02] MEDS: SODIUM CHLORIDE 0.45% 1,000 ML 125 ML IV (10:47)
--- NOTE | 2019-05-02 10:59 | PGE_ITS ---
Date of Service Date of service: 05/02/19 Time of Service: 07:00 Assessment and Plan Assessment and plan (1) Cholelithiasis and cholecystitis without obstruction: Status: Acute Assessment and plan: He has not been complaining of right upper quadrant pain, only some vague mid abdominal discomfort with an unimpressive exam. There is been no bump in his transaminase levels alk phos or bilirubin. The diagnosis is based solely on the CAT scan findings which might be false positive. Nevertheless I am continuing Zosyn to cover for possible cholecystitis as well as urinary tract and/or skin and/or pulmonary pathogens. I am allowing him to eat as he is not had any worsening of symptoms with p.o. intake. (2) Acute kidney injury superimposed on chronic kidney disease: Status: Acute Assessment and plan: Urine output has been meager. Probably prerenal. Increase IV fluids and give a dose of Lasix (principally for assisting with management of his hyperkalemia). And monitor urine output. (3) UTI (urinary tract infection): Status: Acute Assessment and plan: No cultures back yet. Continue Zosyn pending culture results. (4) Acute exacerbation of CHF (congestive heart failure): Status: Acute Assessment and plan: Does not have findings on exam of pulmonary edema. Probably rate related exacerbation. Pulse rate is better. I expect this should improve with current interventions. Dose of Lasix today mainly because of hyperkalemia. Monitor clinical response. (5) Leg wound, left: Status: Chronic Assessment and plan: Area around the wound does not look cellulitic at this time. Await opinion of wound care eval. Zosyn continues for above reasons. (6) Acute adrenal insufficiency: Status: Chronic Assessment and plan: Stress dose steroids for 24 hours then we can probably taper dose towards his chronic prednisone dosing most recently at 10 mg daily if his overall status is improving. (7) Diabetes mellitus: Status: Chronic Assessment and plan: Blood sugar is high. I am putting him on his outpatient dose of Lantus, increase aspart to resistant level and monitor blood sugar response. 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 Clonidine dose decreased slightly to provide some room for blood pressure manipulation. (9) Hypertension: Status: Chronic Assessment and plan: Blood pressures are acceptable on current dose reduced terazosin, clonidine, outpatient amlodipine dose and increased metoprolol dose. Continue to monitor as dose titration upward of metoprolol may be needed for A. fib rate control. (10) Rheumatoid arthritis: Status: Chronic Assessment and plan: Pain control adequate on current regimen of acetaminophen. (11) Hyperkalemia: Status: Acute Assessment and plan: Occurring in the setting of acute on chronic kidney injury. No new medications likely to provoke hyperkalemia. Resume bicarb at outpatient dose, he was given a bolus of insulin. Single dose of patiromer given and we will see what his midday potassium level is. (12) Atrial fibrillation with rapid ventricular response: Status: Chronic Assessment and plan: A. fib flutter on telemetry with a rate that has improved. Now off diltiazem. I am trying to manage this with metoprolol and will uptitrate the dose depending upon pulse and blood pressure response. Continues on chronic apixaban for anticoagulation. Subjective Subjective Interval history since last seen: Did well overnight on BiPAP. Pulse rate came down and diltiazem drip weaned off. With activity heart rate goes into the low 100s. He has been in chronic A. fib flutter since admission. Blood pressures have been acceptable, on the lower end of normal. Limited urine output. Has not been complaining of abdominal pain. Occasional wheezing that seems to respond to neb treatments. Labs this morning showing a potassium has gone up to 7.7 with no potassium supplements given. Renal function as assessed by BUN and creatinine also a little bit worse. Reports feeling hungry. No nausea. No blood in his ostomy output. Denies dysuria. Arthritic pains minimal this morning. Exam Narrative Exam Narrative: Afebrile. Blood pressures range from 110-130 systolic. Pulse rate 70s to 110, A. fib/flutter. He is awake, talkative and in no respiratory distress with oxygen at 2 L. Cannot see neck veins because of his neck size. Lungs have no crackles, some mid-to-late expiratory wheezing scattered in the upper lung barnard. No growth. Irregular heart rhythm without S3 or S4. No heart murmur heard. Abdomen obese with active bowel sounds. He has some inconsistent tenderness to firm palpation in the mid abdomen. No tenderness in the right upper quadrant or in the parastomal area. No pitting edema of either lower extremity with chronic hyperpigmentation of both shins. No erythema around the dressing on his left negro wound. Seems to need a little more help with repositioning in bed compared to yesterday. Objective Objective Clinical Data: Abnormal lab results Transaminase remains low, alk phos and bilirubin normal. Potassium is up to 7.7, BUN 54 creatinine 2.45. White count is down to 8800 hemoglobin and hematocrit are low but relatively stable compared to his baseline. 05/01/19 05/01/19 05/01/19 Range/Units 14:20 14:20 14:20 WBC 16.44 H (4.4-10.8) k/cumm RBC 4.08 L (4.50-6.00) m/cumm Hgb 9.0 L (13.5-17.5) g/dL Hct 32.3 L (40.0-50.0) % MCV 79.2 L (80-95) fL MCH 22.1 L (27.0-33.0) pg MCHC 27.9 L (32.0-36.0) g/dL RDW 16.6 H (11.8-14.1) % Plt Count 509 H (130-400) x1000/uL Absolute Neutrophils 14.42 H (1.2-6.7) k/cumm Absolute Lymphocytes 0.77 L (1.2-3.4) k/cumm Absolute Monocytes 0.92 H (0.11-0.7) k/cumm PT 11.5 H (9.3-11.0) sec Sodium (136-145) mmol/L Potassium 5.8 H (3.5-5.1) mmol/L Chloride 108 H (98-107) mmol/L BUN 54 H (7-18) mg/dL Creatinine 2.45 H (0.70-1.30) mg/dL Glucose 239 H (74-106) mg/dL Calcium 8.3 L (8.5-10.1) mg/dL AST 8 L (15-37) U/L ALT 12 L (16-63) U/L NT-Pro-B Natriuret Pep (<300) pg/mL Total Protein (6.4-8.2) g/dL Albumin 2.5 L (3.4-5.0) g/dL Urine Protein (Negative) mg/dL Urine Blood (Negative) Urine WBC (0-5) HPF 05/01/19 05/01/19 05/02/19 Range/Units 14:20 14:58 06:28 WBC (4.4-10.8) k/cumm RBC 3.95 L (4.50-6.00) m/cumm Hgb 8.7 L (13.5-17.5) g/dL Hct 31.4 L (40.0-50.0) % MCV 79.5 L (80-95) fL MCH 22.0 L (27.0-33.0) pg MCHC 27.7 L (32.0-36.0) g/dL RDW 16.7 H (11.8-14.1) % Plt Count 455 H (130-400) x1000/uL Absolute Neutrophils (1.2-6.7) k/cumm Absolute Lymphocytes (1.2-3.4) k/cumm Absolute Monocytes (0.11-0.7) k/cumm PT (9.3-11.0) sec Sodium (136-145) mmol/L Potassium (3.5-5.1) mmol/L Chloride (98-107) mmol/L BUN (7-18) mg/dL Creatinine (0.70-1.30) mg/dL Glucose (74-106) mg/dL Calcium (8.5-10.1) mg/dL AST (15-37) U/L ALT (16-63) U/L NT-Pro-B Natriuret Pep 12767 H (<300) pg/mL Total Protein (6.4-8.2) g/dL Albumin (3.4-5.0) g/dL Urine Protein 100 H (Negative) mg/dL Urine Blood Trace-intact H (Negative) Urine WBC >50 H (0-5) HPF 05/02/19 Range/Units 06:28 WBC (4.4-10.8) k/cumm RBC (4.50-6.00) m/cumm Hgb (13.5-17.5) g/dL Hct (40.0-50.0) % MCV (80-95) fL MCH (27.0-33.0) pg MCHC (32.0-36.0) g/dL RDW (11.8-14.1) % Plt Count (130-400) x1000/uL Absolute Neutrophils (1.2-6.7) k/cumm Absolute Lymphocytes (1.2-3.4) k/cumm Absolute Monocytes (0.11-0.7) k/cumm PT (9.3-11.0) sec Sodium 135 L (136-145) mmol/L Potassium 7.7 H* D (3.5-5.1) mmol/L Chloride (98-107) mmol/L BUN 64 H (7-18) mg/dL Creatinine 2.98 H (0.70-1.30) mg/dL Glucose 412 H D (74-106) mg/dL Calcium 7.9 L (8.5-10.1) mg/dL AST 10 L (15-37) U/L ALT 8 L (16-63) U/L NT-Pro-B Natriuret Pep (<300) pg/mL Total Protein 6.3 L (6.4-8.2) g/dL Albumin 2.3 L (3.4-5.0) g/dL Urine Protein (Negative) mg/dL Urine Blood (Negative) Urine WBC (0-5) HPF Vital Signs Temperature 36.5 C 05/02/19 05:09 Temperature Source Temporal Artery Scan 05/02/19 05:09 Pulse 62 05/02/19 08:01 Pulse 122 H 05/02/19 08:01 Respiratory Rate 19 05/02/19 08:01 Respiratory Effort Incrsd Work of Breathing 05/02/19 05:09 Respiratory Depth Normal 05/02/19 05:09 Respiratory Pattern Normal 05/02/19 05:09 Blood Pressure 132/78 05/02/19 08:01 Blood Pressure Mean 90 05/02/19 08:01 Blood Pressure Position Sitting 05/01/19 14:15 Pulse Oximetry 96 05/02/19 08:20 Oxygen Delivery Method Bi-pap 05/02/19 08:20 Oxygen Flow Rate 3 05/02/19 08:20 Pain Level 2 05/01/19 21:22 Intake & Output 05/01/19 05/01/19 05/02/19 11:59 23:59 12:59 Intake Total 1151.959 / 9197.738 3690.947 / 1888.947 Output Total 445 / 445 300 / 300 Balance 706.959 / 790.261 7674.947 / 1588.947 Weight 110 kg 109.3 kg Intake: IV 671.959 / 767.687 3878.947 / 1168.947 Oral 480 / 480 720 / 720 Output: Urine 295 / 295 75 / 75 Stool 150 / 150 225 / 225 Other: Urine Color Yellow Light Cat Light Cat Urine Appearance Clear Clear Comment pt voiding clear yellow urine to urinal. He was continent at this last void at 23:45 pt voiding clear yellow urine to urinal. He was continent at his last void at 23:45 Stool Occult Blood Negative Stool Size Small Stool Characteristics Liquid Brown Voiding Methods Urinal Laboratory Results WBC 8.88 k/cumm (4.4-10.8) D 05/02/19 06:28 RBC 3.95 m/cumm (4.50-6.00) L 05/02/19 06:28 Hgb 8.7 g/dL (13.5-17.5) L 05/02/19 06:28 Hct 31.4 % (40.0-50.0) L 05/02/19 06:28 MCV 79.5 fL (80-95) L 05/02/19 06:28 MCH 22.0 pg (27.0-33.0) L 05/02/19 06:28 MCHC 27.7 g/dL (32.0-36.0) L 05/02/19 06:28 RDW 16.7 % (11.8-14.1) H 05/02/19 06:28 Plt Count 455 x1000/uL (130-400) H 05/02/19 06:28 MPV 10.2 fL (8.0-11.0) 05/02/19 06:28 Immature Gran % 1.0 % 05/01/19 14:20 Neutrophils % 87.7 05/01/19 14:20 Lymphocytes % 4.7 05/01/19 14:20 Monocytes % 5.6 05/01/19 14:20 Eosinophils % 0.7 05/01/19 14:20 Basophils % 0.3 05/01/19 14:20 Absolute Neutrophils 14.42 k/cumm (1.2-6.7) H 05/01/19 14:20 Absolute Lymphocytes 0.77 k/cumm (1.2-3.4) L 05/01/19 14:20 Absolute Monocytes 0.92 k/cumm (0.11-0.7) H 05/01/19 14:20 Absolute Eosinophils 0.12 k/cumm (0.0-0.7) 05/01/19 14: Absolute Basophils 0.05 k/cumm (0.0-0.2) 05/01/19 14:20 Differential Comment Rbc morph reviewed 05/01/19 14:20 RBC Morphology See below 05/01/19 14:20 Polychromasia Present 05/01/19 14:20 Hypochromasia 2+ 05/01/19 14:20 Poikilocytosis 2+ 05/01/19 14:20 Anisocytosis 2+ 05/01/19 14:20 Microcytosis 2+ 05/01/19 14:20 Ovalocytes 2+ 05/01/19 14:20 PT 11.5 sec (9.3-11.0) H 05/01/19 14:20 INR 1.1 (0.9-1.1) 05/01/19 14:20 APTT 27.4 sec (21.0-31.4) 05/01/19 14:20 Sodium 135 mmol/L (136-145) L 05/02/19 06:28 Potassium 7.7 mmol/L (3.5-5.1) H* D 05/02/19 06:28 Chloride 104 mmol/L (98-107) 05/02/19 06:28 Carbon Dioxide 22.9 mmol/L (21.0-32.0) 05/02/19 06:28 Anion Gap 8.1 mmol/L (3-11) 05/02/19 06:28 BUN 64 mg/dL (7-18) H 05/02/19 06:28 Creatinine 2.98 mg/dL (0.70-1.30) H 05/02/19 06:28 Estimated GFR/1.73 m2 21.62 (mL/min/1.73m2) 05/02/19 06:28 Glucose 412 mg/dL (74-106) H D 05/02/19 06:28 Lactate 0.9 mmol/L (0.6-1.4) 05/01/19 14:20 Calcium 7.9 mg/dL (8.5-10.1) L 05/02/19 06:28 Magnesium 1.9 mg/dL (1.8-2.4) 05/01/19 14:20 Total Bilirubin 0.5 mg/dL (0.2-1.0) 05/02/19 06:28 AST 10 U/L (15-37) L 05/02/19 06:28 ALT 8 U/L (16-63) L 05/02/19 06:28 Alkaline Phosphatase 103 U/L (46-116) 05/02/19 06:28 Troponin I < 0.05 ng/Ml (<0.06) 05/01/19 20:45 NT-Pro-B Natriuret Pep 50303 pg/mL (<300) H 05/01/19 14:20 Total Protein 6.3 g/dL (6.4-8.2) L 05/02/19 06:28 Albumin 2.3 g/dL (3.4-5.0) L 05/02/19 06:28 Lipase 62 U/L (73-393) 05/01/19 14:20 Urine Color Yellow (Yellow) 05/01/19 14:58 Urine Clarity Cloudy (Clear) 05/01/19 14:58 Urine pH 6.0 (5-8) 05/01/19 14:58 Ur Specific [place] 1.025 (1.005-1.025) 05/01/19 14:58 Urine Protein 100 mg/dL (Negative) H 05/01/19 14:58 Urine Ketones Negative mg/dL (Negative) 05/01/19 14:58 Urine Blood Trace-intact (Negative) H 05/01/19 14:58 Urine Nitrite Negative (Negative) 05/01/19 14:58 Urine Bilirubin Negative (Negative) 05/01/19 14:58 Urine Urobilinogen 1 EU/dL (Up TO 0.2) 05/01/19 14:58 Ur Leukocyte Esterase Moderate (Negative) 05/01/19 14:58 Urine RBC HPF (0-2) 05/01/19 14:58 Urine WBC >50 HPF (0-5) H 05/01/19 14:58 Ur Epithelial Cells Negative HPF (Negative) 05/01/19 14:58 Urine Crystals Negative HPF (Negative) 05/01/19 14:58 Urine Bacteria Rare HPF (Negative) 05/01/19 14:58 Urine Mucus Negative (Negative) 05/01/19 14:58 Urine Other Moderate yeast (Negative) 05/01/19 14:58 Ur Culture Indicated? Yes 05/01/19 14:58 Urine Glucose Negative mg/dL (Negative) 05/01/19 14:58
[2019-05-02 11:31] LABS: BUN 67 mg/dL (7-18); CREATININE 3.21 mg/dL (0.70-1.30); Chloride 104 mmol/L (98-107); Estimated GFR 19.84 (mL/min/1.73m2); Glucose 384 mg/dL (74-106); Sodium 135 mmol/L (136-145)
[2019-05-02 11:34] LABS: Potassium 7.5 mmol/L (3.5-5.1)
[2019-05-02] MEDS: Normal Saline 500 ML 1000 ML IV (13:42)
[2019-05-02] MEDS: INSULIN REGULAR IN 0.9 % NACL 100 UNIT/100 ML BAG 10 UNIT IV (13:54)
--- NOTE | 2019-05-02 14:32 | PGE_ITS ---
Date of Service Date of service: 05/02/19 Time of Service: 14:32 Subjective Subjective Interval history since last seen: Phone call received from Dr. Lou Lockhart who graciously provided some background information that I did not have available. Mr. Corley had been admitted at [facility] in early March following a large hematoma to the left lower leg and also found to have a DVT in the left leg despite being on apixaban. He has had an IVC placed. Plans are in place for doing a skin graft of the ulcer on the left lower leg but a specific date has not yet been set. We will continue with the wound care that was being p erformed at the [facility]. Subsequent to that phone call I was able to access Mr. Corley's [facility] records. I cannot find any scheduled follow-up appointment for wound care. Objective Objective Clinical Data: Abnormal lab results 05/01/19 05/01/19 05/01/19 Range/Units 14:20 14:20 14:20 WBC 16.44 H (4.4-10.8) k/cumm RBC 4.08 L (4.50-6.00) m/cumm Hgb 9.0 L (13.5-17.5) g/dL Hct 32.3 L (40.0-50.0) % MCV 79.2 L (80-95) fL MCH 22.1 L (27.0-33.0) pg MCHC 27.9 L (32.0-36.0) g/dL RDW 16.6 H (11.8-14.1) % Plt Count 509 H (130-400) x1000/uL Absolute Neutrophils 14.42 H (1.2-6.7) k/cumm Absolute Lymphocytes 0.77 L (1.2-3.4) k/cumm Absolute Monocytes 0.92 H (0.11-0.7) k/cumm PT 11.5 H (9.3-11.0) sec Sodium (136-145) mmol/L Potassium 5.8 H (3.5-5.1) mmol/L Chloride 108 H (98-107) mmol/L BUN 54 H (7-18) mg/dL Creatinine 2.45 H (0.70-1.30) mg/dL Glucose 239 H (74-106) mg/dL Calcium 8.3 L (8.5-10.1) mg/dL AST 8 L (15-37) U/L ALT 12 L (16-63) U/L NT-Pro-B Natriuret Pep (<300) pg/mL Total Protein (6.4-8.2) g/dL Albumin 2.5 L (3.4-5.0) g/dL Urine Protein (Negative) mg/dL Urine Blood (Negative) Urine WBC (0-5) HPF 05/01/19 05/01/19 05/02/19 Range/Units 14:20 14:58 06:28 WBC (4.4-10.8) k/cumm RBC 3.95 L (4.50-6.00) m/cumm Hgb 8.7 L (13.5-17.5) g/dL Hct 31.4 L (40.0-50.0) % MCV 79.5 L (80-95) fL MCH 22.0 L (27.0-33.0) pg MCHC 27.7 L (32.0-36.0) g/dL RDW 16.7 H (11.8-14.1) % Plt Count 455 H (130-400) x1000/uL Absolute Neutrophils (1.2-6.7) k/cumm Absolute Lymphocytes (1.2-3.4) k/cumm Absolute Monocytes (0.11-0.7) k/cumm PT (9.3-11.0) sec Sodium (136-145) mmol/L Potassium (3.5-5.1) mmol/L Chloride (98-107) mmol/L BUN (7-18) mg/dL Creatinine (0.70-1.30) mg/dL Glucose (74-106) mg/dL Calcium (8.5-10.1) mg/dL AST (15-37) U/L ALT (16-63) U/L NT-Pro-B Natriuret Pep 26257 H (<300) pg/mL Total Protein (6.4-8.2) g/dL Albumin (3.4-5.0) g/dL Urine Protein 100 H (Negative) mg/dL Urine Blood Trace-intact H (Negative) Urine WBC >50 H (0-5) HPF 05/02/19 05/02/19 Range/Units 06:28 11:11 WBC (4.4-10.8) k/cumm RBC (4.50-6.00) m/cumm Hgb (13.5-17.5) g/dL Hct (40.0-50.0) % MCV (80-95) fL MCH (27.0-33.0) pg MCHC (32.0-36.0) g/dL RDW (11.8-14.1) % Plt Count (130-400) x1000/uL Absolute Neutrophils (1.2-6.7) k/cumm Absolute Lymphocytes (1.2-3.4) k/cumm Absolute Monocytes (0.11-0.7) k/cumm PT (9.3-11.0) sec Sodium 135 L 135 L (136-145) mmol/L Potassium 7.7 H* D 7.5 H* (3.5-5.1) mmol/L Chloride (98-107) mmol/L BUN 64 H 67 H (7-18) mg/dL Creatinine 2.98 H 3.21 H (0.70-1.30) mg/dL Glucose 412 H D 384 H (74-106) mg/dL Calcium 7.9 L 8.0 L (8.5-10.1) mg/dL AST 10 L (15-37) U/L ALT 8 L (16-63) U/L NT-Pro-B Natriuret Pep (<300) pg/mL Total Protein 6.3 L (6.4-8.2) g/dL Albumin 2.3 L (3.4-5.0) g/dL Urine Protein (Negative) mg/dL Urine Blood (Negative) Urine WBC (0-5) HPF Vital Signs Temperature 36.2 C L 05/02/19 12:15 Temperature Source Temporal Artery Scan 05/02/19 12:15 Pulse 51 L 05/02/19 12:28 Pulse 81 05/02/19 12:28 Respiratory Rate 22 05/02/19 12:28 Respiratory Effort Non-Labored 05/02/19 12:15 Respiratory Depth Normal 05/02/19 12:15 Respiratory Pattern Normal 05/02/19 12:15 Blood Pressure 109/67 03/08/20 12:28 Blood Pressure Mean 74 05/02/19 12:28 Blood Pressure Position Supine 05/02/19 12:15 Pulse Oximetry 89 L 05/02/19 12:25 Oxygen Delivery Method Bi-pap 05/02/19 12:15 Oxygen Flow Rate 2 05/02/19 12:15 Fraction of Inspired Oxygen (FIO2) 3 05/02/19 07:40 Pain Level 3 05/02/19 13:43 Intake & Output 05/01/19 05/02/19 05/02/19 22:59 11:59 23:59 Intake Total 500 / 2638.947 Output Total Balance 500 / 2188.947 Weight Intake: IV Oral 500 / 1470 Output: Urine Stool Other: Urine Color Urine Appearance Urine Odor Comment No urine since the 150 that was voided this morning. notified. Stool Occult Blood Positive Stool Size Moderate Stool Characteristics Soft Formed Voiding Methods Laboratory Results WBC 8.88 k/cumm (4.4-10.8) D 05/02/19 06:28 RBC 3.95 m/cumm (4.50-6.00) L 05/02/19 06:28 Hgb 8.7 g/dL (13.5-17.5) L 05/02/19 06:28 Hct 31.4 % (40.0-50.0) L 05/02/19 06:28 MCV 79.5 fL (80-95) L 05/02/19 06:28 MCH 22.0 pg (27.0-33.0) L 05/02/19 06:28 MCHC 27.7 g/dL (32.0-36.0) L 05/02/19 06:28 RDW 16.7 % (11.8-14.1) H 05/02/19 06:28 Plt Count 455 x1000/uL (130-400) H 05/02/19 06:28 MPV 10.2 fL (8.0-11.0) 05/02/19 06:28 Immature Gran % 1.0 % 05/01/19 14:20 Neutrophils % 87.7 05/01/19 14:20 Lymphocytes % 4.7 05/01/19 14:20 Monocytes % 5.6 05/01/19 14:20 Eosinophils % 0.7 05/01/19 14:20 Basophils % 0.3 05/01/19 14:20 Absolute Neutrophils 14.42 k/cumm (1.2-6.7) H 05/01/19 14:20 Absolute Lymphocytes 0.77 k/cumm (1.2-3.4) L 05/01/19 14:20 Absolute Monocytes 0.92 k/cumm (0.11-0.7) H 05/01/19 14:20 Absolute Eosinophils 0.12 k/cumm (0.0-0.7) 05/01/19 14:20 Absolute Basophils 0.05 k/cumm (0.0-0.2) 05/01/19 14:20 Differential Comment Rbc morph reviewed 05/01/19 14:20 RBC Morphology See below 05/01/19 14:20 Polychromasia Present 05/01/19 14:20 Hypochromasia 2+ 05/01/19 14:20 Poikilocytosis 2+ 05/01/19 14:20 Anisocytosis 2+ 05/01/19 14:20 Microcytosis 2+ 05/01/19 14:20 Ovalocytes 2+ 05/01/19 14:20 PT 11.5 sec (9.3-11.0) H 05/01/19 14:20 INR 1.1 (0.9-1.1) 05/01/19 14:20 APTT 27.4 sec (21.0-31.4) 05/01/19 14:20 Sodium 135 mmol/L (136-145) L 05/02/19 11:11 Potassium 7.5 mmol/L (3.5-5.1) H* 05/02/19 11:11 Chloride 104 mmol/L (98-107) 05/02/19 11:11 Carbon Dioxide 27.0 mmol/L (21.0-32.0) 05/02/19 11:11 Anion Gap 4.0 mmol/L (3-11) 05/02/19 11:11 BUN 67 mg/dL (7-18) H 05/02/19 11:11 Creatinine 3.21 mg/dL (0.70-1.30) H 05/02/19 11:11 Estimated GFR/1.73 m2 19.84 (mL/min/1.73m2) 05/02/19 11:11 Glucose 384 mg/dL (74-106) H 05/02/19 11:11 Lactate 0.9 mmol/L (0.6-1.4) 05/01/19 14:20 Calcium 8.0 mg/dL (8.5-10.1) L 05/02/19 11:11 Magnesium 1.9 mg/dL (1.8-2.4) 05/01/19 14:20 Total Bilirubin 0.5 mg/dL (0.2-1.0) 05/02/19 06:28 AST 10 U/L (15-37) L 05/02/19 06:28 ALT 8 U/L (16-63) L 05/02/19 06:28 Alkaline Phosphatase 103 U/L (46-116) 05/02/19 06:28 Troponin I < 0.05 ng/Ml (<0.06) 05/01/19 20:45 NT-Pro-B Natriuret Pep 45233 pg/mL (<300) H 05/01/19 14:20 Total Protein 6.3 g/dL (6.4-8.2) L 05/02/19 06:28 Albumin 2.3 g/dL (3.4-5.0) L 05/02/19 06:28 Lipase 62 U/L (73-393) 05/01/19 14:20 Urine Color Yellow (Yellow) 05/01/19 14:58 Urine Clarity Cloudy (Clear) 05/01/19 14:58 Urine pH 6.0 (5-8) 05/01/19 14:58 Ur Specific [place] 1.025 (1.005-1.025) 05/01/19 14:58 Urine Protein 100 mg/dL (Negative) H 05/01/19 14:58 Urine Ketones Negative mg/dL (Negative) 05/01/19 14:58 Urine Blood Trace-intact (Negative) H 05/01/19 14:58 Urine Nitrite Negative (Negative) 05/01/19 14:58 Urine Bilirubin Negative (Negative) 05/01/19 14:58 Urine Urobilinogen 1 EU/dL (Up TO 0.2) 05/01/19 14:58 Ur Leukocyte Esterase Moderate (Negative) 05/01/19 14:58 Urine RBC HPF (0-2) 05/01/19 14:58 Urine WBC >50 HPF (0-5) H 05/01/19 14:58 Ur Epithelial Cells Negative HPF (Negative) 05/01/19 14:58 Urine Crystals Negative HPF (Negative) 05/01/19 14:58 Urine Bacteria Rare HPF (Negative) 05/01/19 14:58 Urine Mucus Negative (Negative) 05/01/19 14:58 Urine Other Moderate yeast (Negative) 05/01/19 14:58 Ur Culture Indicated? Yes 05/01/19 14:58 Urine Glucose Negative mg/dL (Negative) 05/01/19 14:58
[2019-05-02] MEDS: Lidocaine 2% Jelly 6 ML SYR (15:14)
[2019-05-02 15:38] LABS: Anion Gap 6.8 mmol/L (3-11); BUN 68 mg/dL (7-18); CO2 25.2 mmol/L (21.0-32.0); CREATININE 3.38 mg/dL (0.70-1.30); Calcium 8.1 mg/dL (8.5-10.1); Chloride 104 mmol/L (98-107); Estimated GFR 18.69 (mL/min/1.73m2); Glucose 341 mg/dL (74-106); Sodium 136 mmol/L (136-145)
[2019-05-02 15:40] LABS: Potassium 7.4 mmol/L (3.5-5.1)
--- NOTE | 2019-05-02 16:09 | WOUNDCONS ---
Wound Initial Evaluation Narrative: Patient is a 59 year old male who wound care was consulted to evaluate the left negro wound. The wound patient stated was obtained when he hit it on the side rail of a truck the day after the football game. Patient states he is seen by wound care at [facility] for this wound. Notes from patient's [facility] records indicate that he is being considered for a graft to the area. - Circulation, Sensation, Motion Edema Degree: 1+ Peripheral Pulse Strength: Normal Capillary Refill: Less than 3 seconds Sensation Description: Within Normal Limits Skin Temperature: Warm Skin Color: Pale - Pain Pain Level: 0 (patient denied pain during debrisoft cleansing/debriding and dressing change) Pain Scale Used: Adult - Treatment/Dressing Change Topicals/Ointments: None Cleanse With: Cleanser with Surfactant Dressing Types: Aquacell Ag, Mepilex w/Border - Recomendation Recomendation:: L negro- recommend keeping dressing orders from [facility] wound care which the Chon is using at this time until followed up with wound care at [facility]. Orders are cleanse wound with cleanser with surfactant, apply aquacel AG to wound bed, cover with mepilex. Change every other day and PRN. Physcian/Nurse Practioner Notified: Yes (Dr. Gan) Referrals: Dietary
--- NOTE | 2019-05-02 16:22 | W.PM.PROGNOT ---
Date of Service Date of service: 05/02/19 Time of Service: 16:22 Assessment and Plan Assessment and plan (1) Hyperkalemia: Status: Acute Assessment and plan: Hyperkalemia persists despite 2 doses of bolus IV Lasix, fluid bolus, furosemide, additional bicarb dose and starting on insulin drip. No peaked T waves on ECG, QRS very slightly wider compared to his presenting ECG. Calcium gluconate will be given as well as efforts at further diuresis. Conversation initiated with [facility] transfer center for transfer for possible urgent dialysis. Currently no bed available. (2) Oliguria: Status: Acute Assessment and plan: Limited urine output through the day, total of about 250 cc despite IV fluid bolus, IV fluid support and parenteral Lasix bolus. Following discussion with nephrology at [facility], he will be receiving a 200 mg IV Lasix dose and we will see if we get any response in terms of urine output. (3) Acute kidney injury superimposed on chronic kidney disease: Status: Acute Assessment and plan: Urine output dropping, BUN and creatinine slowly increasing, potassium with minimal change despite interventions noted above. Bicarb is holding in the normal range. Urgent dialysis may be needed. Conversation for transfer initiated. Awaiting word as to availability of bed. (4) Acute exacerbation of CHF (congestive heart failure): Status: Acute Assessment and plan: Thus far maintaining oxygen saturation adequately. Exam suggests increased pleural effusions. Ordinarily having BiPAP support at nighttime but may needed if he develops respiratory distress. See what we get for diuretic response with high-dose furosemide. Subjective Subjective Interval history since last seen: Since this morning his urine output has been dropping. He is a little lethargic but remains arousable and does not complain of shortness of breath, nausea or pain. He ate lunch without any problems and no complaints of abdominal pain following. His potassium level has not changed much despite boluses of regular insulin, saline bolus followed by Lasix, increasing bicarb and initiation of an insulin drip. His QRS complexes are perhaps slightly wider than his presenting ECG. He has not developed peaked T waves. He continues in atrial fibrillation with heart rates ranging from mid 70s to low 100s. His blood pressures have consistently has systolics above 100. I have placed a call to transfer center and spoken with hospitalist and [employer] pulper. There is no bed immediately available but there is concern that he may need emergent dialysis. Recommendations were to give high-dose Lasix, calcium gluconate and recheck labs. He remains on an insulin drip with blood sugars that are slowly coming down but still above 300. Exam Narrative Exam Narrative: Lethargic but arousable with appropriate responses to questions. A. fib with heart rate 90-100 on the monitor. Blood pressure 100-1 10 systolic. SaO2 93 to 97% on 2 L nasal cannula. Cannot see his neck veins because of his neck size. He has diminished breath sounds at both bases clear in the upper lung barnard with some mid-to-late expiratory wheezing scattered to all lung barnard. Heart tones are little soft, irregular rhythm no S3-S4 or murmur heard. Bowel sounds are present. He does not have any tenderness in the right upper quadrant nor mid abdomen. There is no tenderness around the left negro ulcer, chronic increased pigmentation but no increased warmth or cellulitic type erythema. Objective Objective Clinical Data: Abnormal lab results 05/01/19 05/02/19 05/02/19 Range/Units 14:58 06:28 06:28 RBC 3.95 L (4.50-6.00) m/cumm Hgb 8.7 L (13.5-17.5) g/dL Hct 31.4 L (40.0-50.0) % MCV 79.5 L (80-95) fL MCH 22.0 L (27.0-33.0) pg MCHC 27.7 L (32.0-36.0) g/dL RDW 16.7 H (11.8-14.1) % Plt Count 455 H (130-400) x1000/uL Sodium 135 L (136-145) mmol/L Potassium 7.7 H* D (3.5-5.1) mmol/L BUN 64 H (7-18) mg/dL Creatinine 2.98 H (0.70-1.30) mg/dL Glucose 412 H D (74-106) mg/dL Calcium 7.9 L (8.5-10.1) mg/dL AST 10 L (15-37) U/L ALT 8 L (16-63) U/L Total Protein 6.3 L (6.4-8.2) g/dL Albumin 2.3 L (3.4-5.0) g/dL Urine WBC >50 H (0-5) HPF 05/02/19 05/02/19 Range/Units 11:11 15:10 RBC (4.50-6.00) m/cumm Hgb (13.5-17.5) g/dL Hct (40.0-50.0) % MCV (80-95) fL MCH (27.0-33.0) pg MCHC (32.0-36.0) g/dL RDW (11.8-14.1) % Plt Count (130-400) x1000/uL Sodium 135 L (136-145) mmol/L Potassium 7.5 H* 7.4 H* (3.5-5.1) mmol/L BUN 67 H 68 H (7-18) mg/dL Creatinine 3.21 H 3.38 H (0.70-1.30) mg/dL Glucose 384 H 341 H (74-106) mg/dL Calcium 8.0 L 8.1 L (8.5-10.1) mg/dL AST (15-37) U/L ALT (16-63) U/L Total Protein (6.4-8.2) g/dL Albumin (3.4-5.0) g/dL Urine WBC (0-5) HPF Vital Signs Temperature 36.5 C 05/02/19 15:17 Temperature Source Temporal Artery Scan 05/02/19 15:17 Pulse 65 05/02/19 15:16 Pulse 106 H 05/02/19 15:16 Respiratory Rate 22 05/02/19 15:16 Respiratory Effort Non-Labored 05/02/19 12:15 Respiratory Depth Normal 05/02/19 12:15 Respiratory Pattern Normal 05/02/19 12:15 Blood Pressure 115/85 05/02/19 15:16 Blood Pressure Mean 91 05/02/19 15:16 Blood Pressure Position Supine 05/02/19 12:15 Pulse Oximetry 97 05/02/19 15:16 Oxygen Delivery Method Bi-pap 05/02/19 12:15 Oxygen Flow Rate 2 05/02/19 12:15 Fraction of Inspired Oxygen (FIO2) 3 05/02/19 07:40 Pain Level 0 05/02/19 16:16 Intake & Output 05/01/19 05/02/19 05/02/19 22:59 11:59 23:59 Intake Total 1023.667 / 3162.614 Output Total 35 / 485 Balance 988.667 / 0087.614 Weight Intake: IV 523.667 / 1692.614 Oral 500 / 1470 Output: Urine 35 / 260 Stool Other: Urine Color Yellow Urine Appearance Clear Sediment Urine Odor Comment Dr. Gan present for scan. Highest amount was 67ml. Dr. Gan then ordered a ruiz with urometer Stool Occult Blood Positive Stool Size Moderate Stool Characteristics Soft Formed Voiding Methods Laboratory Results WBC 8.88 k/cumm (4.4-10.8) D 05/02/19 06:28 RBC 3.95 m/cumm (4.50-6.00) L 05/02/19 06:28 Hgb 8.7 g/dL (13.5-17.5) L 05/02/19 06:28 Hct 31.4 % (40.0-50.0) L 05/02/19 06:28 MCV 79.5 fL (80-95) L 05/02/19 06:28 MCH 22.0 pg (27.0-33.0) L 05/02/19 06:28 MCHC 27.7 g/dL (32.0-36.0) L 05/02/19 06:28 RDW 16.7 % (11.8-14.1) H 05/02/19 06:28 Plt Count 455 x1000/uL (130-400) H 05/02/19 06:28 MPV 10.2 fL (8.0-11.0) 05/02/19 06:28 Immature Gran % 1.0 % 05/01/19 14:20 Neutrophils % 87.7 05/01/19 14:20 Lymphocytes % 4.7 05/01/19 14:20 Monocytes % 5.6 05/01/19 14:20 Eosinophils % 0.7 05/01/19 14:20 Basophils % 0.3 05/01/19 14:20 Absolute Neutrophils 14.42 k/cumm (1.2-6.7) H 05/01/19 14:20 Absolute Lymphocytes 0.77 k/cumm (1.2-3.4) L 05/01/19 14:20 Absolute Monocytes 0.92 k/cumm (0.11-0.7) H 05/01/19 14:20 Absolute Eosinophils 0.12 k/cumm (0.0-0.7) 05/01/19 14:20 Absolute Basophils 0.05 k/cumm (0.0-0.2) 05/01/19 14:20 Differential Comment Rbc morph reviewed 05/01/19 14:20 RBC Morphology See below 05/01/19 14:20 Polychromasia Present 05/01/19 14:20 Hypochromasia 2+ 05/01/19 14:20 Poikilocytosis 2+ 05/01/19 14:20 Anisocytosis 2+ 05/01/19 14:20 Microcytosis 2+ 05/01/19 14:20 Ovalocytes 2+ 05/01/19 14:20 PT 11.5 sec (9.3-11.0) H 05/01/19 14:20 INR 1.1 (0.9-1.1) 05/01/19 14:20 APTT 27.4 sec (21.0-31.4) 05/01/19 14:20 Sodium 136 mmol/L (136-145) 05/02/19 15:10 Potassium 7.4 mmol/L (3.5-5.1) H* 05/02/19 15:10 Chloride 104 mmol/L (98-107) 05/02/19 15:10 Carbon Dioxide 25.2 mmol/L (21.0-32.0) 05/02/19 15:10 Anion Gap 6.8 mmol/L (3-11) 05/02/19 15:10 BUN 68 mg/dL (7-18) H 05/02/19 15:10 Creatinine 3.38 mg/dL (0.70-1.30) H 05/02/19 15:10 Estimated GFR/1.73 m2 18.69 (mL/min/1.73m2) 05/02/19 15:10 Glucose 341 mg/dL (74-106) H 05/02/19 15:10 Lactate 0.9 mmol/L (0.6-1.4) 05/01/19 14:20 Calcium 8.1 mg/dL (8.5-10.1) L 05/02/19 15:10 Magnesium 1.9 mg/dL (1.8-2.4) 03/07/20 14:20 Total Bilirubin 0.5 mg/dL (0.2-1.0) 05/02/19 06:28 AST 10 U/L (15-37) L 05/02/19 06:28 ALT 8 U/L (16-63) L 05/02/19 06:28 Alkaline Phosphatase 103 U/L (46-116) 05/02/19 06:28 Troponin I < 0.05 ng/Ml (<0.06) 05/01/19 20:45 NT-Pro-B Natriuret Pep 33080 pg/mL (<300) H 05/01/19 14:20 Total Protein 6.3 g/dL (6.4-8.2) L 05/02/19 06:28 Albumin 2.3 g/dL (3.4-5.0) L 05/02/19 06:28 Lipase 62 U/L (73-393) 05/01/19 14:20 Urine Color Yellow (Yellow) 05/01/19 14:58 Urine Clarity Cloudy (Clear) 05/01/19 14:58 Urine pH 6.0 (5-8) 05/01/19 14:58 Ur Specific [place] 1.025 (1.005-1.025) 05/01/19 14:58 Urine Protein 100 mg/dL (Negative) H 05/01/19 14:58 Urine Ketones Negative mg/dL (Negative) 05/01/19 14:58 Urine Blood Trace-intact (Negative) H 05/01/19 14:58 Urine Nitrite Negative (Negative) 05/01/19 14:58 Urine Bilirubin Negative (Negative) 05/01/19 14:58 Urine Urobilinogen 1 EU/dL (Up TO 0.2) 05/01/19 14:58 Ur Leukocyte Esterase Moderate (Negative) 05/01/19 14:58 Urine RBC HPF (0-2) 05/01/19 14:58 Urine WBC >50 HPF (0-5) H 05/01/19 14:58 Ur Epithelial Cells Negative HPF (Negative) 05/01/19 14:58 Urine Crystals Negative HPF (Negative) 05/01/19 14:58 Urine Bacteria Rare HPF (Negative) 05/01/19 14:58 Urine Mucus Negative (Negative) 05/01/19 14:58 Urine Other Moderate yeast (Negative) 05/01/19 14:58 Ur Culture Indicated? Yes 05/01/19 14:58 Urine Glucose Negative mg/dL (Negative) 05/01/19 14:58
[2019-05-02 16:31] LABS: Creatine Kinase 57 U/L (39-308)
[2019-05-02] MEDS: Furosemide 100 MG/10 ML VIAL 200 MG IVP (16:46)
[2019-05-02] MEDS: Calcium Gluconate 4.65 MEQ/10 ML VIAL 4.65 MG IVP (16:47)
[2019-05-02] MEDS: Normal Saline 100 ML (16:50)
[2019-05-02] MEDS: Normal Saline 50 ML 100 ML (16:50)
[2019-05-02 17:14] LABS: Bilirubin Negative (Negative); Blood Negative (Negative); Clarity Sl Cloudy (Clear); Glucose Negative (Negative); Ketones Trace mg/dL (Negative); Leukocyte Esterase Small (Negative); Nitrite Negative (Negative); Specific Gravity >= 1.030 (1.005-1.025); Urobilinogen 0.2 EU/dL (Up TO 0.2); pH 5.5 (5-8)
--- NOTE | 2019-05-02 17:25 | DSE_ITS ---
Date of service: 05/02/19 Time of Service: 17:26 DS: Diagnosis Discharge Diagnosis (1) Hyperkalemia: Status: Acute (2) Oliguria: Status: Acute (3) Acute kidney injury superimposed on chronic kidney disease: Status: Acute (4) Acute exacerbation of CHF (congestive heart failure): Status: Acute (5) Atrial fibrillation with rapid ventricular response: Status: Chronic (6) Cholelithiasis and cholecystitis without obstruction: Status: Acute (7) Leg wound, left: Status: Chronic (8) Acute on chronic diastolic heart failure: Status: Acute (9) Diabetes mellitus: Status: Chronic (10) Adrenal insufficiency: Status: Chronic Discharge Plan Disposition Patient Disposition: [facility] Condition: Serious Discharge Details Chief Complaint: Palpitatns Clinical Impression: Acute exacerbation of CHF (congestive heart failure), UTI (urinary tract infection), Acute kidney injury superimposed on chronic kidney disease, Pneumonia, Acute cholecystitis, Atrial fibrillation with rapid ventricular response Reason For Visit: CHF,PAROXYSMAL ATRIAL FLUTTER,PYURIA Admit Date/Time: 05/01/19 16:14 Admit Provider: Scar Gan Attending Provider: Scar Gan Primary Care Provider: Lou Maldonado ED Provider: Reny Trejo Hospital Course Hospital Course: Mr. Corley is a 59-year-old man with multiple chronic medical problems admitted on 05/01/2019 because of vague abdominal complaints, A. fib flutter with rapid ventricular response, exacerbation of diastolic heart failure, pyuria and CT findings suggestive of acute cholecystitis. He was admitted to the ICU on a diltiazem drip with prompt rate control, but continuation of A. fib. He was maintained on his usual anticoagulations. He was empirically started on Zosyn and blood cultures remain sterile, urine culture with yeast. He was placed on stress dose steroids because of his chronic steroid use and past history of acute deterioration with relative adrenal insufficiency. He received a single dose of Lasix on presentation with limited urine output. On the first morning of hospitalization his potassium had climbed from 5.8-7.7. He received repeated boluses of insulin, saline bolus, and eventually started on an insulin drip with limited response in his potassium?sequentially 7.5, 7.4. At the time of this dictation, following a 200 mg Lasix dose and calcium gluconate 1000 mg, a repeat potassium is pending. His urine output has diminished throughout the day. His physical exam has shown clinically an increase in pleural effusions that were noted on CT scan on admission. He did have a CT scan with contrast in the ER prior to admission otherwise has had no known nephrotoxin exposures. His A. fib rate has ranged from the 70s to 80s and more recently has climbed into the 90s and low 100 range. He has been on short acting metoprolol for rate control. His blood pressures have consistently been above 100 systolic. He has a large ulcer on his left leg without physical findings to suggest necrotizing fasciitis or local cellulitis. His CPK is in the low normal range. His blood sugars have been high throughout his hospitalization. He was started on an insulin drip midday. His mental status has been within his usual, sometimes lethargic but with verbal stimuli awakens and responds appropriately. He has been off and on BiPAP through the day, on it when he is sleeping and on nasal cannula maintaining SaO2 in the mid 90 range when he is awake. Home Meds and New Rx's Prescriptions: No Action cyanocobalamin (vitamin B-12) 1,000 mcg Tablet 1,000 mcg PO DAILY RF: 0 ferrous sulfate 325 mg (65 mg iron) Tablet 325 mg PO BID Qty: 0 RF: 0 ascorbic acid (vitamin C) [Vitamin C] 250 mg Tablet 1 tab PO BID RF: 0 Centrum Complete 18-400 mg-mcg Tablet 1 tab PO DAILY RF: 0 acidophilus-pectin, citrus 25 million cell -100 mg Tablet 1 cap PO TID Qty: 0 RF: 0 Eliquis 5 mg Tablet 5 mg PO BID Qty: 60 RF: 0 insulin aspart U-100 [Novolog Flexpen U-100 Insulin] 100 unit/mL Insulin Pen See Rx Instructions .ROUTE .COMPLEX Qty: 15 RF: 0 pantoprazole 40 mg Tablet,Delayed Release (Dr/Ec) 40 mg PO DAILY Qty: 60 RF: 0 melatonin 3 mg Tablet Extended Release 6 mg PO HS Qty: 30 RF: 0 sodium bicarbonate 650 mg Tablet 650 mg PO TID Qty: 90 RF: 0 calcium carbonate-vitamin D3 [Calcium 500 + D] 500 mg(1,250mg) -400 unit Tablet 1 tab PO BID RF: 0 acetaminophen [Tylenol] 325 mg tablet 1,000 mg PO TID RF: 0 gabapentin 100 mg capsule 300 mg PO TID RF: 0 terazosin 2 mg Capsule 4 mg PO BID Qty: 0 RF: 0 magnesium chloride [Mag 64] 64 mg Tablet,Delayed Release (Dr/Ec) 64 mg PO BID Qty: 0 RF: 0 venlafaxine [Effexor XR] 37.5 mg Capsule,Extended Release 24hr 112.5 mg PO DAILY RF: 0 Zyrtec 10 mg Capsule 10 mg PO DAILY RF: 0 amlodipine 5 mg tablet 10 mg PO DAILY RF: 0 levothyroxine 25 mcg tablet 12.5 mcg PO DAILY@0600 RF: 0 Lantus Solostar U-100 Insulin 100 unit/mL (3 mL) insulin pen See Rx Instructions .ROUTE .COMPLEX RF: 0 prednisone 20 mg Tablet See Rx Instructions .ROUTE .COMPLEX Qty: 30 RF: 0 risperidone [Risperdal] 2 mg Tablet 2 mg PO HS Qty: 0 RF: 0 insulin aspart U-100 100 unit/mL (3 mL) insulin pen 10 unit SC AC Qty: 15 RF: 0 metoprolol tartrate 25 mg Tablet 25 mg PO BID RF: 0 clonidine HCl [Catapres] 0.1 mg tablet 0.2 mg PO TID RF: 0 Discharge Instructions Activity:: Activity as Tolerated Diet:: Carb Counting Discharge Orders Discharge Orders: Discharge Order (Routine); Ordered 05/02/19 Ordered By: Scar Gan DS: Summary Status at Discharge Functional status at discharge: bed bound Overall status at discharge: patient is not back to baseline Mental Status: mental status grossly normal Speech and Movement: slowed movement Mood: congruent mood Affect: normal affect Time Spent with Patient providing and/or coordinating discharge services: Greater than 30 minutes Exam Psych Mental Status: mental status grossly normal Speech and Movement: slowed movement Mood: congruent mood Affect: normal affect DS: Data Vitals/I&O Vitals and I&O: Vital Signs Temperature 36.5 C 05/02/19 15:17 Temperature Source Temporal Artery Scan 05/02/19 15:17 Pulse 123 H 05/02/19 17:16 Pulse 113 H 05/02/19 17:16 Respiratory Rate 21 05/02/19 17:16 Respiratory Effort Non-Labored 05/02/19 12:15 Respiratory Depth Normal 05/02/19 12:15 Respiratory Pattern Normal 05/02/19 12:15 Blood Pressure 111/87 05/02/19 17:16 Blood Pressure Mean 91 05/02/19 17:16 Blood Pressure Position Supine 05/02/19 12:15 Pulse Oximetry 98 05/02/19 17:16 Oxygen Delivery Method Bi-pap 05/02/19 12:15 Oxygen Flow Rate 2 05/02/19 12:15 Fraction of Inspired Oxygen (FIO2) 3 05/02/19 07:40 Pain Level 0 05/02/19 16:16 Intake & Output 05/01/19 05/02/19 05/02/19 22:59 11:59 23:59 Intake Total 1023.667 / 3162.614 Output Total 35 / 485 Balance 988.667 / 2677.614 Weight Intake: IV 523.667 / 1692.614 Oral 500 / 1470 Output: Urine 35 / 260 Stool Other: Urine Color Yellow Urine Appearance Clear Sediment Urine Odor Comment Dr. Gan present for scan. Highest amount was 67ml. Dr. Gan then ordered a ruiz with urometer Stool Occult Blood Positive Stool Size Moderate Stool Characteristics Soft Formed Voiding Methods Data Completed and Pending Labs on day of discharge: Labs from last 24 hours 05/02/19 05/02/19 05/02/19 18:00 17:30 15:10 WBC RBC Hgb Hct MCV MCH MCHC RDW Plt Count MPV Sodium Pending Cancelled Potassium Pending Cancelled Chloride Pending Cancelled Carbon Dioxide Pending Cancelled Anion Gap Pending Cancelled BUN Pending Cancelled Creatinine Pending Cancelled Estimated GFR/1.73 m2 Pending Cancelled Glucose Pending Cancelled Calcium Pending Cancelled Phosphorus Pending Total Bilirubin AST ALT Alkaline Phosphatase Creatine Kinase Troponin I Total Protein Albumin Urine Color Yellow Urine Clarity Sl cloudy Urine pH 5.5 Ur Specific [place] >= 1.030 H Urine Protein Trace H Urine Ketones Trace H Urine Blood Negative Urine Nitrite Negative Urine Bilirubin Negative Urine Urobilinogen 0.2 Ur Leukocyte Esterase Small H Urine RBC Pending Urine WBC Pending Ur Epithelial Cells Pending Urine Crystals Pending Urine Bacteria Pending Urine Mucus Pending Ur Culture Indicated? Pending Urine Glucose Negative 05/02/19 05/02/19 05/02/19 15:10 15:10 11:11 WBC RBC Hgb Hct MCV MCH MCHC RDW Plt Count MPV Sodium 136 135 L Potassium 7.4 H* 7.5 H* Chloride 104 104 Carbon Dioxide 25.2 27.0 Anion Gap 6.8 4.0 BUN 68 H 67 H Creatinine 3.38 H 3.21 H Estimated GFR/1.73 m2 18.69 19.84 Glucose 341 H 384 H Calcium 8.1 L 8.0 L Phosphorus Total Bilirubin AST ALT Alkaline Phosphatase Creatine Kinase 57 Troponin I Total Protein Albumin Urine Color Urine Clarity Urine pH Ur Specific [place] Urine Protein Urine Ketones Urine Blood Urine Nitrite Urine Bilirubin Urine Urobilinogen Ur Leukocyte Esterase Urine RBC Urine WBC Ur Epithelial Cells Urine Crystals Urine Bacteria Urine Mucus Ur Culture Indicated? Urine Glucose 05/02/19 05/02/19 05/01/19 06:28 06:28 20:45 WBC 8.88 D RBC 3.95 L Hgb 8.7 L Hct 31.4 L MCV 79.5 L MCH 22.0 L MCHC 27.7 L RDW 16.7 H Plt Count 455 H MPV 10.2 Sodium 135 L Potassium 7.7 H* D Chloride 104 Carbon Dioxide 22.9 Anion Gap 8.1 BUN 64 H Creatinine 2.98 H Estimated GFR/1.73 m2 21.62 Glucose 412 H D Calcium 7.9 L Phosphorus Total Bilirubin 0.5 AST 10 L ALT 8 L Alkaline Phosphatase 103 Creatine Kinase Troponin I < 0.05 Total Protein 6.3 L Albumin 2.3 L Urine Color Urine Clarity Urine pH Ur Specific [place] Urine Protein Urine Ketones Urine Blood Urine Nitrite Urine Bilirubin Urine Urobilinogen Ur Leukocyte Esterase Urine RBC Urine WBC Ur Epithelial Cells Urine Crystals Urine Bacteria Urine Mucus Ur Culture Indicated? Urine Glucose 05/01/19 05/01/19 17:45 16:18 WBC RBC Hgb Hct MCV MCH MCHC RDW Plt Count MPV Sodium Potassium Chloride Carbon Dioxide Anion Gap BUN Creatinine Estimated GFR/1.73 m2 Glucose Calcium Phosphorus Total Bilirubin AST ALT Alkaline Phosphatase Creatine Kinase Troponin I < 0.05 Cancelled Total Protein Albumin Urine Color Urine Clarity Urine pH Ur Specific [place] Urine Protein Urine Ketones Urine Blood Urine Nitrite Urine Bilirubin Urine Urobilinogen Ur Leukocyte Esterase Urine RBC Urine WBC Ur Epithelial Cells Urine Crystals Urine Bacteria Urine Mucus Ur Culture Indicated? Urine Glucose 05/01/19 16:25 Blood Blood Culture - Pending 05/01/19 16:10 Blood Blood Culture - Pending Preliminary micro results at discharge 03/07/20 16:25 Blood Culture - Pending Blood 05/01/19 16:10 Blood Culture - Pending Blood [facility] Medical History (Updated 05/02/19 @ 16:24 by Scar Gan MD) Acromegaly (Chronic) Acute on chronic kidney failure (Resolved) Adrenal insufficiency (Chronic) Ambulatory dysfunction (Chronic) Anemia (Chronic) Atrial flutter, paroxysmal (Chronic) Back pain (Chronic 06/21/13) CAD (coronary artery disease) (Chronic) Cardiopulmonary arrest with successful resuscitation (Resolved) Cholelithiasis (Chronic) Chronic anxiety (Chronic) Chronic bipolar disorder (Chronic) a. With history of psychosis. Chronic cholecystitis (Chronic) Chronic insomnia (Chronic) Chronic pain (Chronic) On both Methadone and Fentanyl as well as Ultram and Naproxen. CKD (chronic kidney disease) (Chronic) Complicated UTI (urinary tract infection) (Resolved) Diabetes mellitus (Chronic) Diabetic foot ulcer (Chronic) Diabetic ulcer of toe associated with diabetes mellitus due to underlying condition, with bone involvement without evidence of necrosis (Inactive) 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 (Resolved) Dyslipidemia (Chronic) Elevated troponin I level (Resolved) Endocarditis due to Staphylococcus (Resolved) Heme positive stool (Resolved) Hemorrhagic cystitis (Chronic) Hyperkalemia (Acute) Hypertension (Chronic) Hypomagnesemia (Chronic) Hypothyroidism (Chronic) Impaired mobility and ADLs (Chronic) Inability to get out of bed (Chronic 06/21/13) Lactic acidosis (Resolved) MRSA bacteremia (Resolved) Obesity (Chronic) a. Obesity though he has had significant weight loss since last seen. Osteoarthritis of both knees (Chronic) Severe. a. [id number] bilateral knees. 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 2 diabetes mellitus (Resolved) Palliative care encounter (Chronic) DObbertin Pedal edema (Chronic) Poor self care (Chronic 06/21/13) Poorly controlled type 2 diabetes mellitus with circulatory disorder (Chronic) Presence of IVC filter (Acute) Pulmonary hypertension (Chronic) Rheumatoid arthritis (Chronic) Sepsis (Resolved) Septic arthritis of elbow, right (Inactive) Toxic metabolic encephalopathy (Resolved) Toxic metabolic encephalopathy (Resolved) Ulcerative colitis (Chronic) UTI (urinary tract infection) (Resolved) UTI (urinary tract infection) due to Enterococcus (Resolved) Surgical History Arthroplasty of knee (Resolved 03/18/12) irrigation and lavage right Fracture, Open Treatment (Resolved) [place] [place] DISTAL HUMERUS FRACTURE History of insertion of T-tube into biliary tract (Chronic) S/P colectomy (Chronic) Social History Smoking/Tobacco Use Status: Former Tobacco Use Alcohol Intake: former Drug use: Rarely Substance use type: marijuana Housing: longterm Do you feel safe at home: Yes Do you feel safe in your relationship?: Yes
[2019-05-02 17:31] LABS: WBC >50 HPF (0-5)
[2019-05-02 17:32] LABS: Bacteria Few HPF (Negative); C & S Indicated? Yes; Crystals Negative HPF (Negative); Epithelial Cells Negative HPF (Negative); Mucus Negative (Negative); Other Cells Moderate Yeast (Negative); RBC 0-2 HPF (0-2)
[2019-05-02 18:25] LABS: Anion Gap 5.8 mmol/L (3-11); BUN 69 mg/dL (7-18); CO2 25.2 mmol/L (21.0-32.0); CREATININE 3.43 mg/dL (0.70-1.30); Calcium 8.1 mg/dL (8.5-10.1); Chloride 105 mmol/L (98-107); Estimated GFR 18.38 (mL/min/1.73m2); Glucose 243 mg/dL (74-106); PHOSPHORUS 5.3 mg/dL (2.6-4.7); Sodium 136 mmol/L (136-145)
[2019-05-02 18:28] LABS: Potassium 7.1 mmol/L (3.5-5.1)
== END 2019-05-02 19:20 | disposition short-term general hospital (02) | DRG 291 ==
LOC: ER 16:45 → ICU 17:14
PROVIDERS: Admitting Provider Internal Medicine; Emergency Provider Physician Assistant; PCP Family Medicine; Visit Provider Internal Medicine
DX: I13.0 Hypertensive heart and chronic kidney disease with heart failure and stage 1 through stage 4 chronic kidney disease, or unspecified chronic kidney disease (principal); I50.33 Acute on chronic diastolic (congestive) heart failure; N39.0 Urinary tract infection, site not specified; N17.9 Acute kidney failure, unspecified; K80.00 Calculus of gallbladder with acute cholecystitis without obstruction; E27.3 Drug-induced adrenocortical insufficiency; L97.829 Non-pressure chronic ulcer of other part of left lower leg with unspecified severity; K51.90 Ulcerative colitis, unspecified, without complications; I48.92 Unspecified atrial flutter; I48.91 Unspecified atrial fibrillation; N18.9 Chronic kidney disease, unspecified; R09.02 Hypoxemia; J44.9 Chronic obstructive pulmonary disease, unspecified; E11.22 Type 2 diabetes mellitus with diabetic chronic kidney disease; Z79.4 Long term (current) use of insulin; E11.42 Type 2 diabetes mellitus with diabetic polyneuropathy; F31.9 Bipolar disorder, unspecified; M06.9 Rheumatoid arthritis, unspecified; Z93.3 Colostomy status; D64.9 Anemia, unspecified; I25.10 Atherosclerotic heart disease of native coronary artery without angina pectoris; F41.9 Anxiety disorder, unspecified; F51.04 Psychophysiologic insomnia; G89.29 Other chronic pain; E78.5 Hyperlipidemia, unspecified; E66.9 Obesity, unspecified; E03.9 Hypothyroidism, unspecified; E83.42 Hypomagnesemia; N30.20 Other chronic cystitis without hematuria; I27.20 Pulmonary hypertension, unspecified; E11.59 Type 2 diabetes mellitus with other circulatory complications; E11.65 Type 2 diabetes mellitus with hyperglycemia; E87.5 Hyperkalemia
CPT/HCPCS: 36410; 36415; 71250; 80048; 80053; 82550; 83690; 85027; 87040; 87081; 93005; 94640; 96361; 96365; 96375; 99221; 99223; 99233; 99239; 99252; 99285; 99356; NC; 74176; 81003; 81015; 83605; 83735; 83880; 84100; 84484; 85025; 85610; 85730; 87086; 93010; 94660; J0610; J1720; J1940; J2543; J2930; J3490; J7620

== ENCOUNTER 2019-05-17 11:10 | Inpatient (IN) | payer MEDICARE, MEDICAID, SELFPAY ==
[2019-05-17] VITALS (88 sets, daily range): BP systolic 81–134; BP diastolic 33–103; PULSE 42–176; RESP 10–28; TEMP 36.2–37.5; O2SAT 90–100
--- NOTE | 2019-05-17 11:15 | DI.RAD_ITS ---
EXAM: XR PORTABLE CHEST AP CLINICAL HISTORY: SOB TECHNIQUE: COMPARISON: No exams were available for comparison FINDINGS: Portable upright chest film was obtained. There are probable bilateral pleural effusions and mild pr ominence of pulmonary interstitial markings in the perihilar areas and lower lobes. Findings are sug gestive of CHF. IMPRESSION: Probable CHF. No focal consolidation seen.
--- NOTE | 2019-05-17 11:28 | ED.GENADUL_ITS ---
Discharge Plan Discharge Details Chief Complaint: RespSymp Admit Date/Time: 05/17/19 14:10 Admit Provider: Pablo Cobb Attending Provider: Pablo Cobb Primary Care Provider: Lou Maldonado ED Provider: Ashanti Hayes Discharge Data Discharge Date/Time-TO BE ENTERED AT DEPARTURE: 05/17/19 17:23 Medical Decision Making Brendan Corley is a 59-year-old man with multiple medical problems presenting to the emergency department with complaint of general malaise shortness of breath. On exam patient with mild tachypnea, expiratory wheeze bilateral lower lobes. Patient does not have a history of reactive airway disease, but does have CHF. Suspect CHF exacerbation at this point. Also concern for adrenal insufficiency, other metabolic/lyte disturbance, pulmonary infection, UTI, ACS, other. Plan for IV hydrocortisone, BiPAP, IV nitroglycerin, screening labs, EKG, telemetry. Patient is a resident of the [facility], where other patients are currently being tested for coded. Patient does not report cough or fever, given respiratory complaints and place of residence will screen with COVID testing. Nursing with difficulty placing peripheral IV. Intraosseous line placed by me, good return of marrow like aspirate. Ultrasound-guided IV placed by me left upper extremity. Patient tolerating BiPAP well. Borderline hypotension with SBP in the 90s, holding nitroglycerin at this time. Labs reviewed, creatinine 2.2, hemoglobin 8, troponin negative. Awaiting urine, chest x-ray. Patient admitted. Dr. Cobb at bedside. UA positive, awaiting chest x-ray results prior to giving antibiotics, Dr. Cobb aware. Clinical impression: Suspect adrenal insufficiency, CHF Disposition: [facility] inpatient Medical Records Medical records reviewed: Yes I reviewed the patient's medical records. Lab Data Lab results reviewed: Yes I reviewed the patient's lab results. Labs: 05/17/19 13:25 Urine - Reflex from Ua Urine Culture - Pending 05/17/19 13:33 Nose MRSA Screen - Pending 05/17/19 13:05 Blood Blood Culture - Pending 05/17/19 11:41 Nasopharynx Influenza Types A,B Antigen - Final 05/17/19 12:16 Blood Blood Culture - Pending Laboratory Tests Range/Units 03/23/20 03/23/20 03/23/20 11:41 11:41 13:05 WBC (4.4-10.8) k/cumm 10.84 H RBC (4.50-6.00) m/cumm 3.74 L Hgb (13.5-17.5) g/dL 8.1 L Hct (40.0-50.0) % 30.6 L MCV (80-95) fL 81.8 MCH (27.0-33.0) pg 21.7 L MCHC (32.0-36.0) g/dL 26.5 L RDW (11.8-14.1) % 17.3 H Plt Count (130-400) x1000/uL 277 D MPV (8.0-11.0) fL 10.4 Immature Gran % % 0.7 Neutrophils % 86.2 Lymphocytes % 5.3 Monocytes % 5.8 Eosinophils % 1.8 Basophils % 0.2 Absolute Neutrophils (1.2-6.7) k/cumm 9.34 H Absolute Lymphocytes (1.2-3.4) k/cumm 0.57 L Absolute Monocytes (0.11-0.7) k/cumm 0.63 Absolute Eosinophils (0.0-0.7) k/cumm 0.20 Absolute Basophils (0.0-0.2) k/cumm 0.02 Differential Comment Rbc morph reviewed RBC Morphology See below Polychromasia Present Hypochromasia 2+ Poikilocytosis 2+ Basophilic Stippling Present Anisocytosis 2+ Microcytosis 1+ Macrocytosis 1+ Sodium (136-145) mmol/L 147 H Potassium (3.5-5.1) mmol/L 3.9 Chloride (98-107) mmol/L 105 Carbon Dioxide (21.0-32.0) mmol/L 41.6 H Anion Gap (3-11) mmol/L 0.4 L BUN (7-18) mg/dL 48 H Creatinine (0.70-1.30) mg/dL 2.22 H Estimated GFR/1.73 m2 (mL/min/1.73m2) 30.37 Glucose (74-106) mg/dL 164 H Lactate (0.6-1.4) mmol/L 0.8 Calcium (8.5-10.1) mg/dL 8.5 Magnesium (1.8-2.4) mg/dL 2.0 Total Bilirubin (0.2-1.0) mg/dL 0.4 AST (15-37) U/L 27 ALT (16-63) U/L 18 Alkaline Phosphatase (46-116) U/L 122 H Troponin I (<0.06) ng/Ml < 0.05 Total Protein (6.4-8.2) g/dL 6.5 Albumin (3.4-5.0) g/dL 2.7 L Urine Color (Yellow) Urine Clarity (Clear) Urine pH (5-8) Ur Specific [place] (1.005-1.025) Urine Protein (Negative) mg/dL Urine Ketones (Negative) mg/dL Urine Blood (Negative) Urine Nitrite (Negative) Urine Bilirubin (Negative) Urine Urobilinogen (Up TO 0.2) EU/dL Ur Leukocyte Esterase (Negative) Urine RBC (0-2) HPF Urine WBC (0-5) HPF Ur Epithelial Cells (Negative) HPF Urine Crystals (Negative) HPF Urine Bacteria (Negative) HPF Urine Casts (Negative) LPF Urine Mucus (Negative) Ur Culture Indicated? Urine Glucose (Negative) mg/dL Range/Units 05/17/19 13:25 WBC (4.4-10.8) k/cumm RBC (4.50-6.00) m/cumm Hgb (13.5-17.5) g/dL Hct (40.0-50.0) % MCV (80-95) fL MCH (27.0-33.0) pg MCHC (32.0-36.0) g/dL RDW (11.8-14.1) % Plt Count (130-400) x1000/uL MPV (8.0-11.0) fL Immature Gran % % Neutrophils % Lymphocytes % Monocytes % Eosinophils % Basophils % Absolute Neutrophils (1.2-6.7) k/cumm Absolute Lymphocytes (1.2-3.4) k/cumm Absolute Monocytes (0.11-0.7) k/cumm Absolute Eosinophils (0.0-0.7) k/cumm Absolute Basophils (0.0-0.2) k/cumm Differential Comment RBC Morphology Polychromasia Hypochromasia Poikilocytosis Basophilic Stippling Anisocytosis Microcytosis Macrocytosis Sodium (136-145) mmol/L Potassium (3.5-5.1) mmol/L Chloride (98-107) mmol/L Carbon Dioxide (21.0-32.0) mmol/L Anion Gap (3-11) mmol/L BUN (7-18) mg/dL Creatinine (0.70-1.30) mg/dL Estimated GFR/1.73 m2 (mL/min/1.73m2) Glucose (74-106) mg/dL Lactate (0.6-1.4) mmol/L Calcium (8.5-10.1) mg/dL Magnesium (1.8-2.4) mg/dL Total Bilirubin (0.2-1.0) mg/dL AST (15-37) U/L ALT (16-63) U/L Alkaline Phosphatase (46-116) U/L Troponin I (<0.06) ng/Ml Total Protein (6.4-8.2) g/dL Albumin (3.4-5.0) g/dL Urine Color (Yellow) Yellow Urine Clarity (Clear) Sl cloudy Urine pH (5-8) 6.0 Ur Specific [place] (1.005-1.025) 1.020 Urine Protein (Negative) mg/dL 30 H Urine Ketones (Negative) mg/dL Negative Urine Blood (Negative) Trace-intact H Urine Nitrite (Negative) Negative Urine Bilirubin (Negative) Negative Urine Urobilinogen (Up TO 0.2) EU/dL 0.2 Ur Leukocyte Esterase (Negative) Moderate H Urine RBC (0-2) HPF 3-5 H Urine WBC (0-5) HPF >50 H Ur Epithelial Cells (Negative) HPF Negative Urine Crystals (Negative) HPF Negative Urine Bacteria (Negative) HPF Moderate Urine Casts (Negative) LPF Negative Urine Mucus (Negative) Negative Ur Culture Indicated? Yes Urine Glucose (Negative) mg/dL Negative ECG Data Attestation: I personally reviewed and interpreted this ECG (s) as follows: Interpretation: EKG shows sinus bradycardia at 53, normal axis, no STEMI, nondiagnostic EKG HPI General Mode of arrival: EMS . Date/Time Provider Initiated Documentation: 05/17/19 11:26 . Limitations to Documentation: no limitations . Information obtained by: patient, EMS, RN notes reviewed and old records reviewed . HPI Narrative: Brendan Corley is a 59 y/o man with history of multiple medical problems including A. fib, chronic kidney disease, CHF, diabetes, adrenal insufficiency, coronary artery disease presenting to the emergency department with malaise. Patient reports that he feels like crap for the past 2 to 3 days. Patient reports that he feels mildly short of breath. He denies any pain, fevers, cough, vomiting, diarrhea, focal weakness. Patient reports he has been eating and drinking as usual up until today. Patient is a poor historian, and does not further clarify why he is here other than stating repeatedly that he feels like crap. Related Data Home Medications Medication Instructions Recorded Confirmed cyanocobalamin (vitamin B-12) 1,000 mcg PO DAILY 12/23/17 05/17/19 ferrous sulfate 325 mg PO BID #0 tab 12/31/17 05/17/19 magnesium chloride [Mag 64] 64 mg PO BID #0 tab 02/10/18 05/17/19 terazosin 4 mg PO BID #0 cap 02/10/18 05/17/19 Centrum Complete 1 tab PO DAILY 03/01/18 05/17/19 ascorbic acid (vitamin C) [Vitamin 1 tab PO BID 03/01/18 05/17/19 C] acidophilus-pectin, citrus 1 cap PO TID #0 tab 03/24/18 05/17/19 Eliquis 5 mg PO BID #60 tab 06/19/18 05/17/19 insulin aspart U-100 [Novolog See Rx Instructions .ROUTE 06/19/18 05/17/19 Flexpen U-100 Insulin] .COMPLEX #15 ml melatonin 6 mg PO HS #30 tab 06/19/18 05/01/19 pantoprazole 40 mg PO DAILY #60 tab 06/19/18 05/17/19 sodium bicarbonate 650 mg PO TID #90 tab 06/19/18 05/01/19 calcium carbonate-vitamin D3 1 tab PO BID 07/09/18 05/01/19 [Calcium 500 + D] venlafaxine [Effexor XR] 112.5 mg PO DAILY 10/23/18 05/17/19 acetaminophen [Tylenol] 1,000 mg PO TID 01/08/19 05/17/19 gabapentin 300 mg PO TID 01/08/19 05/17/19 Zyrtec 10 mg PO DAILY 02/23/19 05/01/19 amlodipine 10 mg PO DAILY 02/26/19 05/17/19 levothyroxine 12.5 mcg PO DAILY@0600 02/26/19 05/17/19 Lantus Solostar U-100 Insulin See Rx Instructions .ROUTE .COMPLEX 03/15/19 05/17/19 insulin aspart U-100 10 unit SC AC #15 ml 03/19/19 05/01/19 prednisone See Rx Instructions .ROUTE 03/19/19 05/17/19 .COMPLEX #30 tab risperidone [Risperdal] 2 mg PO HS #0 tab 03/19/19 05/17/19 clonidine HCl [Catapres] 0.2 mg PO TID 05/01/19 05/17/19 metoprolol tartrate 25 mg PO BID 05/01/19 05/01/19 furosemide [Lasix] 40 mg PO DAILY 05/17/19 05/17/19 hydrochlorothiazide 25 mg PO DAILY 05/17/19 05/17/19 Previous Rx's Medication Instructions Recorded ferrous sulfate 325 mg PO BID #0 tab 12/31/17 magnesium chloride [Mag 64] 64 mg PO BID #0 tab 02/10/18 terazosin 4 mg PO BID #0 cap 02/10/18 acidophilus-pectin, citrus 1 cap PO TID #0 tab 03/24/18 Eliquis 5 mg PO BID #60 tab 06/19/18 insulin aspart U-100 [Novolog See Rx Instructions .ROUTE 06/19/18 Flexpen U-100 Insulin] .COMPLEX #15 ml melatonin 6 mg PO HS #30 tab 06/19/18 pantoprazole 40 mg PO DAILY #60 tab 06/19/18 sodium bicarbonate 650 mg PO TID #90 tab 06/19/18 insulin aspart U-100 10 unit SC AC #15 ml 03/19/19 prednisone See Rx Instructions .ROUTE 03/19/19 .COMPLEX #30 tab risperidone [Risperdal] 2 mg PO HS #0 tab 03/19/19 Allergies Allergy/AdvReac Type Severity Reaction Status Date / Time lisinopril Allergy Unverified 05/17/19 14:51 General Stated Complaint: RespSymp YVES: 3 Review of Systems Narrative: Constitutional: denies fevers Eyes: denies eye pain ENT: denies ear pain, dental pain, sore throat Cardiovascular: denies chest pain Respiratory: denies cough, reports mild shortness of breath GI: denies abdominal pain, vomiting, diarrhea : denies flank pain MSK: denies back pain, neck pain, arthralgias, myalgias Skin: denies rash Neuro: denies headaches, numbness, weakness [facility] Medical History Acromegaly (Chronic) Acute on chronic kidney failure (Resolved) Adrenal insufficiency (Chronic) Ambulatory dysfunction (Chronic) Anemia (Chronic) Atrial flutter, paroxysmal (Chronic) Back pain (Chronic 06/21/13) CAD (coronary artery disease) (Chronic) Cardiopulmonary arrest with successful resuscitation (Resolved) Cholelithiasis (Chronic) Chronic anxiety (Chronic) Chronic bipolar disorder (Chronic) a. With history of psychosis. Chronic cholecystitis (Chronic) Chronic insomnia (Chronic) Chronic pain (Chronic) On both Methadone and Fentanyl as well as Ultram and Naproxen. CKD (chronic kidney disease) (Chronic) Complicated UTI (urinary tract infection) (Resolved) Diabetes mellitus (Chronic) Diabetic foot ulcer (Chronic) Diabetic ulcer of toe associated with diabetes mellitus due to underlying condition, with bone involvement without evidence of necrosis (Inactive) 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 (Resolved) Dyslipidemia (Chronic) Elevated troponin I level (Resolved) Endocarditis due to Staphylococcus (Resolved) Heme positive stool (Resolved) Hemorrhagic cystitis (Chronic) Hyperkalemia (Acute) Hypertension (Chronic) Hypomagnesemia (Chronic) Hypothyroidism (Chronic) Impaired mobility and ADLs (Chronic) Inability to get out of bed (Chronic 06/21/13) Lactic acidosis (Resolved) MRSA bacteremia (Resolved) Obesity (Chronic) a. Obesity though he has had significant weight loss since last seen. Osteoarthritis of both knees (Chronic) Severe. a. [id number] bilateral knees. 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 2 diabetes mellitus (Resolved) Palliative care encounter (Chronic) DObbertin Pedal edema (Chronic) Poor self care (Chronic 06/21/13) Poorly controlled type 2 diabetes mellitus with circulatory disorder (Chronic) Presence of IVC filter (Acute) Pulmonary hypertension (Chronic) Rheumatoid arthritis (Chronic) Sepsis (Resolved) Septic arthritis of elbow, right (Inactive) Toxic metabolic encephalopathy (Resolved) Toxic metabolic encephalopathy (Resolved) Ulcerative colitis (Chronic) UTI (urinary tract infection) (Resolved) UTI (urinary tract infection) due to Enterococcus (Resolved) Surgical History Arthroplasty of knee (Resolved 03/18/12) irrigation and lavage right Fracture, Open Treatment (Resolved) 06/06/17-[facility] S/P ORIF RIGHT DISTAL HUMERUS FRACTURE History of insertion of T-tube into biliary tract (Chronic) S/P colectomy (Chronic) Social History Smoking/Tobacco Use Status: Former Tobacco Use Alcohol Intake: former Drug use: Rarely Substance use type: marijuana [facility]: [facility] Do you feel safe at home: Yes Do you feel safe in your relationship?: Yes Exam Narrative Exam Narrative: Constitutional: Chronically ill-appearing, pleasant, eyes closed, eyes open to verbal stimuli HENT: head atraumatic/normocephalic/normal inspection, mucous membranes moist Eyes: conjunctiva normal, sclera normal, pupils 3mm b/l Neck: no stridor, normal ROM, trachea midline Chest: normal inspection Resp: Mild tachypnea, expiratory wheeze bilateral lower lobes Cardio: Bradycardic rate at 50, normal rhythm, no murmur appreciated GI: abdomen soft, non-tender, non-distended Skin: warm, dry, normal color, several areas of ecchymosis to forearms, wound dressing in place left lower leg Neuro: Eyes closed, opens eyes to verbal stimuli, oriented x3, grossly non- focal, normal tone Ext: 2+ edema bilateral lower extremities Psych: normal mood, normal affect Course Vital Signs Vital signs: Vital Signs Temperature 36.9 C 05/17/19 11:14 Pulse 60 05/17/19 11:14 Respiratory Rate 22 05/17/19 11:14 Blood Pressure 129/56 L 05/17/19 11:14 Pulse Oximetry 99 05/17/19 11:14 Temperature 36.9 C 05/17/19 11:14 Temperature Source Temporal Artery Scan 05/17/19 11:14 Pulse 60 05/17/19 11:14 Respiratory Rate 22 05/17/19 11:14 Respiratory Effort 05/17/19 11:18 Respiratory Depth Shallow 05/17/19 11:18 Blood Pressure 129/56 L 05/17/19 11:14 Blood Pressure Position Sitting 05/17/19 11:14 Pulse Oximetry 99 05/17/19 11:14 Oxygen Delivery Method Nasal Cannula 05/17/19 11:14 Oxygen Flow Rate 2 05/17/19 11:14 Pain Level 0 05/17/19 11:14 Critical Care Time Critical Care Time Total Critical Care Time: 45 Attestation: I have spent greater than 45 minutes of critical care time excluding procedures and including and not limited to frequent reassessment, management of BIPAP with this critically ill patient.
[2019-05-17 12:33] LABS: Abs Immature Grans 0.08 k/cumm (0.0-0.09); Absolute Basophil Count 0.02 k/cumm (0.0-0.2); Absolute Lymphocyte Count 0.57 k/cumm (1.2-3.4); Absolute Monocyte Count 0.63 k/cumm (0.11-0.7); Basophils % 0.2; Eosinophils % 1.8; HCT 30.6 % (40.0-50.0); HGB 8.1 g/dL (13.5-17.5); Immature Grans % 0.7 %; Lymphocytes % 5.3; Mean Corp. HGB Concentration 26.5 g/dL (32.0-36.0); Mean Corpuscular Hemoglobin 21.7 pg (27.0-33.0); Mean Corpuscular Volume 81.8 fL (80-95); Mean Platelet Volume 10.4 fL (8.0-11.0); Monocytes % 5.8; Neutrophils % 86.2; Platelet Count 277 x1000/uL (130-400); RBC 3.74 m/cumm (4.50-6.00); RBC Distribution Width 17.3 % (11.8-14.1); White Blood Cell Count 10.84 k/cumm (4.4-10.8)
[2019-05-17] MEDS: Hydrocortisone SOD SUC. 100 MG VIAL IVP ×2 (12:48→20:37)
[2019-05-17 12:53] LABS: Absolute Neutrophil Count 9.34 k/cumm (1.2-6.7); Anisocytosis 2+; Basophilic Stippling Present; Diff Comment RBC Morph Reviewed
[2019-05-17 12:54] LABS: Hypochromasia 2+; Macrocytosis 1+; Microcytosis 1+; Poikilocytes 2+; Polychromasia Present
[2019-05-17 13:00] LABS: ALT 18 U/L (16-63); AST 27 U/L (15-37); Albumin 2.7 g/dL (3.4-5.0); Alkaline Phosphatase 122 U/L (46-116); Anion Gap 0.4 mmol/L (3-11); BUN 48 mg/dL (7-18); Bilirubin, Total 0.4 mg/dL (0.2-1.0); CO2 41.6 mmol/L (21.0-32.0); CREATININE 2.22 mg/dL (0.70-1.30); Calcium 8.5 mg/dL (8.5-10.1); Chloride 105 mmol/L (98-107); Estimated GFR 30.37 (mL/min/1.73m2); Glucose 164 mg/dL (74-106); Potassium 3.9 mmol/L (3.5-5.1); Sodium 147 mmol/L (136-145); Total Protein 6.5 g/dL (6.4-8.2); Troponin I < 0.05 ng/Ml (<0.06)
[2019-05-17 13:13] LABS: Lactate 0.8 mmol/L (0.6-1.4)
[2019-05-17] MEDS: Lidocaine 2% Jelly 6 ML SYR (13:29)
[2019-05-17 13:50] LABS: Bilirubin Negative (Negative); Blood Trace-intact (Negative); Clarity Sl Cloudy (Clear); Glucose Negative (Negative); Ketones Negative (Negative); Leukocyte Esterase Moderate (Negative); Nitrite Negative (Negative); Urobilinogen 0.2 EU/dL (Up TO 0.2)
[2019-05-17 13:58] LABS: Bacteria Moderate HPF (Negative); C & S Indicated? Yes; Casts Negative LPF (Negative); Crystals Negative HPF (Negative); Epithelial Cells Negative HPF (Negative); Mucus Negative (Negative); WBC >50 HPF (0-5)
--- NOTE | 2019-05-17 14:42 | HPE_ITS ---
Date of service: 05/17/19 Time of Service: 14:47 Assessment and Plan Assessment and plan (1) Respiratory distress, acute: Status: Acute Assessment and plan: Patient presented in some acute respiratory distress, does appear to be responding to BiPAP. he is oxygenating well with minimal supplemental oxygen. He will be admitted with close monitoring ICU given he is on BiPAP and has some low blood pressures. Think most likely etiology is congestive heart failure given his clinical presentation and chest x-ray findings. He does have some wheezing, but has no known history of COPD or asthma, I think these are consistent with cardiac wheeze. Given community spread of coronavirus, swab has been taken and he will be on respiratory precautions until testing returns. I do not think this is consistent with pneumonia. (2) Acute adrenal insufficiency: Status: Chronic Assessment and plan: Patient had some soft blood pressures with systolics as low as 89 and diastolics in the 50s. Patient has history of recurrent adrenal insufficiency with similar presentations. Over the past 7 hours blood pressures have increased, as he has been started on IV hydrocortisone. I will continue the IV hydrocortisone at least overnight, and plan to transition to oral prednisone. Normal lactate speaks against sepsis. (3) Acute on chronic diastolic heart failure: Status: Acute Assessment and plan: As above. Patient history of coronary artery disease, but troponin is negative. We have started a furosemide drip and this can be titrated in the ICU. I did review his recent echocardiogram from March 17 which showed preserved ejection fraction of 60% and no significant valvular disease. (4) Leg wound, left: Status: Chronic Assessment and plan: This did not appear to be infected. I will ask for wound consult to continue to manage. (5) Complicated UTI (urinary tract infection): Status: Ruled-out Assessment and plan: There is a high number of white blood cell counts in his urine, and given systemic symptoms and adrenal insufficiency, I think we should cover this with the culture pending. Started him on ceftriaxone. (6) Diabetes mellitus: Status: Chronic Assessment and plan: We will continue on his outpatient basal bolus insulin with additional sliding scale as needed on steroids. 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 I have held the other antihypertensives given that blood pressures been soft, but continue the metoprolol given his coronary disease and history of rapid rates with his flutter and fibrillation. (8) Chronic cholecystitis: Status: Chronic Assessment and plan: Patient has some mild epigastric tenderness, but I will not pursue further evaluation at this time unless this gets worse. (9) Toxic metabolic encephalopathy: Status: Resolved Assessment and plan: Patient's diminished mental status likely reflects the adrenal insufficiency with diminished perfusion and possible urinary infection. Will monitor. (10) CKD (chronic kidney disease): Status: Chronic Assessment and plan: Patient's creatinine is roughly at his baseline in the low twos. Today his potassium is not elevated, will be careful not to give him excess potassium given the hyperkalemia on last admission. Qualifiers: Chronic kidney disease stage: unspecified stage Qualified Code(s): N18.9 - Chronic kidney disease, unspecified (11) Hypertension: Status: Chronic Assessment and plan: As above, antihypertensives are held, but may need to be resumed quickly, especially clonidine which may cause rebound hypertension. (12) Hypothyroidism: Status: Chronic Assessment and plan: Recent TSH dysuria is been euthyroid. No change in levothyroxine dose (13) Chronic bipolar disorder: Status: Chronic Assessment and plan: Mood has been stable. No change in outpatient psychiatric meds (14) Anemia: Status: Chronic Assessment and plan: Patient has a significant anemia, which is not significantly different than his baseline. Renal insufficiency is likely the primary cause. He is on blood thinners, but has not had any no recent bleeding. Will follow. (15) DVT prophylaxis: Status: Acute Assessment and plan: He is on apixaban chronically. (16) Discharge planning issues: Status: Acute Assessment and plan: Patient will be admitted to the respiratory ICU with full respiratory precautions given the coronavirus pandemic. He is full code. History of Present Illness History of Present Illness Chief Complaint: Fatigue, shortness of breath Narrative: 59-year-old man who is resident at the [facility] with complex medical history including diabetes on insulin, chronic renal insufficiency secondary chronic prednisone treatment of to now and active rheumatoid arthritis, chronic renal insufficiency with recent transfer to [facility] from [facility] on May 01 for hyperkalemia in the setting of renal failure necessitating hemodialysis, history of congestive heart failure with preserved ejection fraction, atrial fibrillation/flutter on chronic anticoagulation, and recurrent urinary tract infections. Presenting today with shortness of breath and fatigue developing over the last 1 to 2 days. Patient is sleepy and history limited by his limited response to questions. He does deny chest pain, cough, runny nose, or fever. Patient has been on prednisone taper since discharge from [facility] earlier in the month. We do have another patient admitted currently for respiratory infection from the [facility], with coronavirus testing pending. Review of Systems Narrative: Constitutional: denies fevers or chills. Unclear if weight changes. He is quite thirsty. Eyes: denies eye pain or discharge ENT: denies ear pain, dental pain, sore throat Cardiovascular: denies chest pain or palpitations. He does have swelling in legs Respiratory: denies cough or sputum production GI: denies abdominal pain, vomiting, diarrhea : denies dysuria or change in urination MSK: denies new back pain, neck pain, arthralgias, myalgias Skin: denies rash. He has been getting wound care for his chronic venous stasis ulcer in the left lower leg. Neuro: denies headaches, numbness, or new weakness. He has some chronic weakness and deformity in his left hand Psych: No mood changes recent medication changes [facility] Medical History Acromegaly (Chronic) Acute on chronic kidney failure (Resolved) Adrenal insufficiency (Chronic) Ambulatory dysfunction (Chronic) Anemia (Chronic) Atrial flutter, paroxysmal (Chronic) Back pain (Chronic 06/21/13) CAD (coronary artery disease) (Chronic) Cardiopulmonary arrest with successful resuscitation (Resolved) Cholelithiasis (Chronic) Chronic anxiety (Chronic) Chronic bipolar disorder (Chronic) a. With history of psychosis. Chronic cholecystitis (Chronic) Chronic insomnia (Chronic) Chronic pain (Chronic) On both Methadone and Fentanyl as well as Ultram and Naproxen. CKD (chronic kidney disease) (Chronic) Complicated UTI (urinary tract infection) (Resolved) Diabetes mellitus (Chronic) Diabetic foot ulcer (Chronic) Diabetic ulcer of toe associated with diabetes mellitus due to underlying condition, with bone involvement without evidence of necrosis (Inactive) 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 (Resolved) Dyslipidemia (Chronic) Elevated troponin I level (Resolved) Endocarditis due to Staphylococcus (Resolved) Heme positive stool (Resolved) Hemorrhagic cystitis (Chronic) Hyperkalemia (Acute) Hypertension (Chronic) Hypomagnesemia (Chronic) Hypothyroidism (Chronic) Impaired mobility and ADLs (Chronic) Inability to get out of bed (Chronic 06/21/13) Lactic acidosis (Resolved) MRSA bacteremia (Resolved) Obesity (Chronic) a. Obesity though he has had significant weight loss since last seen. Osteoarthritis of both knees (Chronic) Severe. a. [id number] bilateral knees. 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 2 diabetes mellitus (Resolved) Palliative care encounter (Chronic) DObbertin Pedal edema (Chronic) Poor self care (Chronic 06/21/13) Poorly controlled type 2 diabetes mellitus with circulatory disorder (Chronic) Presence of IVC filter (Acute) Pulmonary hypertension (Chronic) Rheumatoid arthritis (Chronic) Sepsis (Resolved) Septic arthritis of elbow, right (Inactive) Toxic metabolic encephalopathy (Resolved) Toxic metabolic encephalopathy (Resolved) Ulcerative colitis (Chronic) UTI (urinary tract infection) (Resolved) UTI (urinary tract infection) due to Enterococcus (Resolved) Surgical History Arthroplasty of knee (Resolved 03/18/12) irrigation and lavage right Fracture, Open Treatment (Resolved) 06/06/17[facility] [place] S/P ORIF RIGHT DISTAL HUMERUS FRACTURE History of insertion of T-tube into biliary tract (Chronic) S/P colectomy (Chronic) Social History Smoking/Tobacco Use Status: Former Tobacco Use Alcohol Intake: former Drug use: Rarely Substance use type: marijuana Housing: prison Do you feel safe at home: Yes Do you feel safe in your relationship?: Yes Meds Home Medications and Allergies Home Medications Medication Instructions Recorded Confirmed Type cyanocobalamin (vitamin B-12) 1,000 mcg PO DAILY 12/23/17 05/01/19 History ferrous sulfate 325 mg PO BID #0 tab 12/31/17 05/01/19 Rx magnesium chloride [Mag 64] 64 mg PO BID #0 tab 02/10/18 05/01/19 Rx terazosin 4 mg PO BID #0 cap 02/10/18 05/01/19 Rx Centrum Complete 1 tab PO DAILY 03/01/18 05/01/19 History ascorbic acid (vitamin C) [Vitamin 1 tab PO BID 03/01/18 05/01/19 History C] acidophilus-pectin, citrus 1 cap PO TID #0 tab 03/24/18 05/01/19 Rx Eliquis 5 mg PO BID #60 tab 06/19/18 05/01/19 Rx insulin aspart U-100 [Novolog See Rx Instructions .ROUTE 06/19/18 05/01/19 Rx Flexpen U-100 Insulin] .COMPLEX #15 ml melatonin 6 mg PO HS #30 tab 06/19/18 05/01/19 Rx pantoprazole 40 mg PO DAILY #60 tab 06/19/18 05/01/19 Rx sodium bicarbonate 650 mg PO TID #90 tab 06/19/18 05/01/19 Rx calcium carbonate-vitamin D3 1 tab PO BID 07/09/18 05/01/19 History [Calcium 500 + D] venlafaxine [Effexor XR] 112.5 mg PO DAILY 10/23/18 05/01/19 History acetaminophen [Tylenol] 1,000 mg PO TID 01/08/19 05/01/19 History gabapentin 300 mg PO TID 01/08/19 05/01/19 History Zyrtec 10 mg PO DAILY 02/23/19 05/01/19 History amlodipine 10 mg PO DAILY 02/26/19 05/01/19 History levothyroxine 12.5 mcg PO DAILY@0600 02/26/19 05/01/19 History Lantus Solostar U-100 Insulin See Rx Instructions .ROUTE .COMPLEX 03/15/19 05/01/19 History insulin aspart U-100 10 unit SC AC #15 ml 03/19/19 05/01/19 Rx prednisone See Rx Instructions .ROUTE 03/19/19 05/01/19 Rx .COMPLEX #30 tab risperidone [Risperdal] 2 mg PO HS #0 tab 03/19/19 05/01/19 Rx clonidine HCl [Catapres] 0.2 mg PO TID 05/01/19 05/01/19 History metoprolol tartrate 25 mg PO BID 05/01/19 05/01/19 History furosemide [Lasix] 40 mg PO DAILY 05/17/19 05/17/19 History hydrochlorothiazide 25 mg PO DAILY 05/17/19 05/17/19 History Allergies Allergy/AdvReac Type Severity Reaction Status Date / Time lisinopril Allergy Unverified 05/17/19 14:51 Exam Narrative Exam Narrative: Constitutional: Chronically ill-appearing, pleasant, eyes closed, eyes open to verbal and tactile stimuli and able to respond to direct questions with yes or no. Unable to give history. HEENT: head atraumatic/normocephalic/normal inspection. Mucous membranes dry, no oral pharyngeal lesions. Eyes: conjunctiva normal, sclera normal, pupils 3mm b/l Neck: no stridor, normal ROM, trachea midline. I do not appreciate elevation of jugular venous pulsation, but exam is limited with body habitus Chest: normal inspection Resp: Mild tachypnea, expiratory wheeze bilateral mid lung barnard and rails on dependent side (right) in lower half of lung field. Cardio: Bradycardic rate in 50s, normal rhythm, no murmur appreciated GI: abdomen soft, non-distended. Mild tenderness with deep palpation in the epigastric area, I do not appreciate any masses or organomegaly. Skin: warm, dry, normal color, several areas of ecchymosis to forearms, wound dressing in place left lower leg. Wound appears clean without significant surrounding erythema or purulent discharge. Neuro: Eyes closed, opens eyes to verbal stimuli, oriented x3, grossly non-focal though he does have some muscle wasting of his left hand, normal tone Ext: 2+ pitting edema bilateral lower extremities to the shins. No joint redness or swelling. Psych: normal mood, normal affect Results Portable AP chest x-ray: Bilateral blunting of diaphragm consistent with effusions, prominent interstitial markings and perihilar areas and lower lobes consistent with CHF, no focal consolidation. Labs Result diagrams: 05/17/19 11:41 05/17/19 11:41 Labs: Laboratory Results - last 24 hr 05/17/19 05/17/19 05/17/19 11:41 11:41 13:05 WBC 10.84 H RBC 3.74 L Hgb 8.1 L Hct 30.6 L MCV 81.8 MCH 21.7 L MCHC 26.5 L RDW 17.3 H Plt Count 277 D MPV 10.4 Immature Gran % 0.7 Neutrophils % 86.2 Lymphocytes % 5.3 Monocytes % 5.8 Eosinophils % 1.8 Basophils % 0.2 Absolute Neutrophils 9.34 H Absolute Lymphocytes 0.57 L Absolute Monocytes 0.63 Absolute Eosinophils 0.20 Absolute Basophils 0.02 Differential Comment Rbc morph reviewed RBC Morphology See below Polychromasia Present Hypochromasia 2+ Poikilocytosis 2+ Basophilic Stippling Present Anisocytosis 2+ Microcytosis 1+ Macrocytosis 1+ Sodium 147 H Potassium 3.9 Chloride 105 Carbon Dioxide 41.6 H Anion Gap 0.4 L BUN 48 H Creatinine 2.22 H Estimated GFR/1.73 m2 30.37 Glucose 164 H Lactate 0.8 Calcium 8.5 Magnesium 2.0 Total Bilirubin 0.4 AST 27 ALT 18 Alkaline Phosphatase 122 H Troponin I < 0.05 Total Protein 6.5 Albumin 2.7 L Urine Color Urine Clarity Urine pH Ur Specific [place] Urine Protein Urine Ketones Urine Blood Urine Nitrite Urine Bilirubin Urine Urobilinogen Ur Leukocyte Esterase Urine RBC Urine WBC Ur Epithelial Cells Urine Crystals Urine Bacteria Urine Casts Urine Mucus Ur Culture Indicated? Urine Glucose 05/17/19 13:25 WBC RBC Hgb Hct MCV MCH MCHC RDW Plt Count MPV Immature Gran % Neutrophils % Lymphocytes % Monocytes % Eosinophils % Basophils % Absolute Neutrophils Absolute Lymphocytes Absolute Monocytes Absolute Eosinophils Absolute Basophils Differential Comment RBC Morphology Polychromasia Hypochromasia Poikilocytosis Basophilic Stippling Anisocytosis Microcytosis Macrocytosis Sodium Potassium Chloride Carbon Dioxide Anion Gap BUN Creatinine Estimated GFR/1.73 m2 Glucose Lactate Calcium Magnesium Total Bilirubin AST ALT Alkaline Phosphatase Troponin I Total Protein Albumin Urine Color Yellow Urine Clarity Sl cloudy Urine pH 6.0 Ur Specific [place] 1.020 Urine Protein 30 H Urine Ketones Negative Urine Blood Trace-intact H Urine Nitrite Negative Urine Bilirubin Negative Urine Urobilinogen 0.2 Ur Leukocyte Esterase Moderate H Urine RBC 3-5 H Urine WBC >50 H Ur Epithelial Cells Negative Urine Crystals Negative Urine Bacteria Moderate Urine Casts Negative Urine Mucus Negative Ur Culture Indicated? Yes Urine Glucose Negative Last Vital Signs Temp 36.9 C 05/17/19 11:14 Pulse 47 L 05/17/19 14:16 Resp 17 05/17/19 14:20 BP 109/55 L 05/17/19 14:16 Pulse Ox 98 05/17/19 14:20 COVID-19 Screening Traveled to [place] from one of the affected countries or regions?: No Recent travel in the [place] within the last 8 weeks?: No Recent out of the country travel within the last 8 weeks?: No Exposure or possible exposure to illness during travel?: No Had IN PERSON contact w/suspected or confirmed C-19 person: No Have you had the following symptoms in the past few days?: Yes Symptoms noted since travel?: No Symptoms
[2019-05-17 14:59] LABS: Troponin I < 0.05 ng/Ml (<0.06)
[2019-05-17] MEDS: cefTRIAXone 1 GM/50 ML BAG IVPB (15:03)
[2019-05-17] MEDS: Hydrocortisone 1% CR 30 GM TUBE TP (15:19)
[2019-05-17 16:22] LABS: BE 13.9 mmol/L (-3-3); HCO3 40 mmol/L (22-28); pH 7.32 (7.35-7.45); pO2 56 mmHg (83-108); sO2 90 % (94-98); tCO2 39 mmol/L (22-29)
[2019-05-17 16:29] LABS: FIO2 30 %; Site Right Radial; pCO2 77 mmHg (34-47)
[2019-05-17] MEDS: Insulin Aspart 300 UNITS/3 ML PEN 10 UNITS SC (18:36)
[2019-05-17] MEDS: Insulin Aspart 300 UNITS/3 ML PEN SC (18:37)
[2019-05-17] MEDS: Insulin Glargine 300 UNITS/3 ML PEN 40 UNITS SC (20:36)
[2019-05-17] MEDS: Magnesium Chloride 64 MG TABCR PO (20:38)
[2019-05-17] MEDS: Sodium Bicarbonate 650 MG TAB PO (20:38)
[2019-05-17] MEDS: Ascorbic Acid 500 MG TAB 250 MG PO (20:38)
[2019-05-17] MEDS: Lactobacillus Acidophilus CAP 1 CAP PO (20:38)
[2019-05-17] MEDS: Gabapentin 300 MG CAP PO (20:38)
[2019-05-17] MEDS: Metoprolol 25 MG TAB PO (20:38)
[2019-05-17] MEDS: Apixaban 5 MG TAB PO (20:38)
[2019-05-17] MEDS: risperiDONE 1 MG TAB 2 MG PO (21:43)
[2019-05-17] MEDS: Melatonin 3 MG TAB 6 MG PO (21:44)
[2019-05-18] VITALS (33 sets, daily range): BP systolic 121–157; BP diastolic 57–81; PULSE 44–74; RESP 14–62; TEMP 36.4–37.5; O2SAT 76–96
[2019-05-18] MEDS: Hydrocortisone SOD SUC. 100 MG VIAL IVP ×3 (03:27→22:06)
[2019-05-18] MEDS: Levothyroxine 25 MCG TAB 12.5 MCG PO (03:27)
[2019-05-18 07:03] LABS: Abs Immature Grans 0.11 k/cumm (0.0-0.09); Absolute Basophil Count 0.01 k/cumm (0.0-0.2); Absolute Lymphocyte Count 0.34 k/cumm (1.2-3.4); Absolute Monocyte Count 0.25 k/cumm (0.11-0.7); Absolute Neutrophil Count 7.46 k/cumm (1.2-6.7); Basophils % 0.1; HCT 28.4 % (40.0-50.0); HGB 7.5 g/dL (13.5-17.5); Immature Grans % 1.3 %; Lymphocytes % 4.2; Mean Corp. HGB Concentration 26.4 g/dL (32.0-36.0); Mean Corpuscular Hemoglobin 21.4 pg (27.0-33.0); Mean Corpuscular Volume 80.9 fL (80-95); Mean Platelet Volume 11.2 fL (8.0-11.0); Monocytes % 3.1; Neutrophils % 91.3; Platelet Count 272 x1000/uL (130-400); RBC 3.51 m/cumm (4.50-6.00); RBC Distribution Width 17.4 % (11.8-14.1); White Blood Cell Count 8.17 k/cumm (4.4-10.8)
[2019-05-18 07:16] LABS: Hemoglobin A1C 8.4 % (3.8-5.6)
[2019-05-18 07:26] LABS: Anion Gap 2.5 mmol/L (3-11); BUN 48 mg/dL (7-18); CO2 39.5 mmol/L (21.0-32.0); CREATININE 2.25 mg/dL (0.70-1.30); Calcium 8.4 mg/dL (8.5-10.1); Chloride 104 mmol/L (98-107); Glucose 264 mg/dL (74-106); Potassium 3.2 mmol/L (3.5-5.1); Sodium 146 mmol/L (136-145)
[2019-05-18] MEDS: Gabapentin 300 MG CAP PO ×3 (08:23→22:05)
[2019-05-18] MEDS: Sodium Bicarbonate 650 MG TAB PO ×3 (08:23→22:09)
[2019-05-18] MEDS: Magnesium Chloride 64 MG TABCR PO ×2 (08:23→22:07)
[2019-05-18] MEDS: Multivitamin TAB 1 TAB PO (08:24)
[2019-05-18] MEDS: Cetirizine 10 MG TAB PO (08:24)
[2019-05-18] MEDS: Venlafaxine 37.5 MG CAPCR 112.5 MG PO (08:24)
[2019-05-18] MEDS: Cyanocobalamin 500 MCG TAB 1000 MCG PO (08:24)
[2019-05-18] MEDS: Lactobacillus Acidophilus CAP 1 CAP PO ×3 (08:25→22:04)
[2019-05-18] MEDS: Ascorbic Acid 500 MG TAB 250 MG PO ×2 (08:25→22:02)
[2019-05-18] MEDS: Apixaban 5 MG TAB PO ×2 (08:25→22:02)
[2019-05-18] MEDS: Metoprolol 25 MG TAB PO ×2 (08:27→22:07)
[2019-05-18] MEDS: Insulin Aspart 300 UNITS/3 ML PEN 10 UNITS SC ×3 (08:29→18:16)
[2019-05-18] MEDS: Insulin Aspart 300 UNITS/3 ML PEN SC ×3 (08:29→18:16)
[2019-05-18] MEDS: Insulin Glargine 300 UNITS/3 ML PEN 40 UNITS SC ×2 (08:30→22:27)
[2019-05-18] MEDS: Potassium Chloride 20 MEQ TABCR 40 MEQ PO (10:43)
[2019-05-18] MEDS: Ferrous Sulfate 325 MG TAB PO (10:43)
--- NOTE | 2019-05-18 14:06 | W.NUTCONSULT ---
Date of service: 05/18/19 Time of Service: 14:06 Nutritional Consult ASSESSMENT: 59 year old male admitted to [facility] with weakness, respiratory distress, toxic metabolic encephalopathy. PMH: IDDM, CHF, COPD, Acute adrenal insuff, Kidney Dx, Left Leg Wound (13cmx 5.4 cmx 0.3 cm). Following Diabetic Diet with 100% intake (last night dinner had 2 burgers, 3 sodas), with elevated blood sugars today (>350 mg/dl). CDE aware of Diabetic Consult for Diabetes and better blood sugar control. BMI indicates class 1 obesity, weight stable x 90 days. Has frequent admissions to [facility], lives at SNF. Medical chart indicates had hemodialysis for kidney failure 05/02/19 at [facility] [place] [facility] [place]. Currently not receiving HD. At elevated nutritional risk in view of increased nutrient needs in view of large leg wound. Recommend adding Enrique - 1 packet (120 kcal/15 g protein) BID to provide additional nutrients for optimal wound healing. In RICU to r/o Covid19. NUTRITIONAL DIAGNOSIS: Increased Nutrient Needs due to large leg wound INTERVENTION: Diabetic Diet DM consult Enrique - 1 packet BID MONITORING AND EVALUATION: po intake, weight, labs, wound healing Time Spent in Nutritional Counseling and Treatment: 0 time spent face to face
[2019-05-18] MEDS: Furosemide 40 MG/4 ML VIAL IVP (15:01)
[2019-05-18] MEDS: cefTRIAXone 1 GM/50 ML BAG IVPB (15:02)
--- NOTE | 2019-05-18 16:17 | PHA.ADMREV ---
Pharmacy Clinical Review - Admission Clinical Review (Last Reviewed 05/17/19 @ 12:23 by Ashanti Hayes MD) Discharge planning issues (Acute) Acute on chronic diastolic heart failure (Acute) Respiratory distress, acute (Acute) DVT prophylaxis (Acute) lisinopril Allergy (Unverified 05/17/19 14:51) Height 6 ft 1 in Weight 110.5 kg - Renal Dosing Renal Dosing: BUN 48 mg/dL (7-18) H 05/18/19 06:30 Creatinine 2.25 mg/dL (0.70-1.30) H 05/18/19 06:30 Medications needing adjustments: Reviewed (CRCL ~39ML/MIN) - Anticoagulation Anticoagulation: Hgb 7.5 g/dL (13.5-17.5) L 05/18/19 06:30 Hct 28.4 % (40.0-50.0) L 05/18/19 06:30 Plt Count 272 x1000/uL (130-400) 05/18/19 06:30 Creatinine 2.25 mg/dL (0.70-1.30) H 05/18/19 06:30 DVT Prohphylaxis: Reviewed Medications: Apixaban Therapeutic Anticoagulation: Reviewed Medications: Apixaban - Opiate Usage Evaluate Pain Scale/Pains Meds: N/A Scheduled Bowel Reg ordered if on Opiates?: No - Relevant Labs Sodium 146 mmol/L (136-145) H 05/18/19 06:30 Potassium 3.2 mmol/L (3.5-5.1) L 05/18/19 06:30 Chloride 104 mmol/L (98-107) 05/18/19 06:30 Magnesium 2.0 mg/dL (1.8-2.4) 05/17/19 11:41 Electrolytes, C-Reactive P, ESR: Reviewed (PO KCL ordered) - Antimicrobial Stewardship Antibiotic appropriateness: Reviewed (covid 19 pending) Surgical Abx d/c within 24 hr: N/A Culture review/Resistance: Reviewed - DM Control DM Control: Glucose 264 mg/dL (74-106) H D 05/18/19 06:30 Hemoglobin A1c 8.4 % (3.8-5.6) H 05/18/19 06:30 Finger Stick Blood Glucose 365 Finger Stick Blood Glucose 365 Finger Stick Blood Glucose 292 Finger Stick Blood Glucose 292 Finger Stick Blood Glucose 292 Insulin Dosing: Reviewed - Heart Failure/KS Heart Failure/KS: Troponin I < 0.05 ng/Ml (<0.06) 05/17/19 14:30 EF%, ARYA's, B-Blockers, Diuretics: Reviewed (metoprolol, furosemide) - BP Control BP Control: Blood Pressure 157/57 Blood Pressure 139/70 Blood Pressure 121/81 If elevated: Reviewed - QTc Review If Elevated: Reviewed (443) - IV to PO Switch IV Medications: Reviewed (iv antibiotic, iv steroids, nitro infusion) - Home Meds Home Med List reviewed: Reviewed (home meds not ordered: amlodipine, clonidine, hctz, terazosin,) - Current meds Current Medication Order Review: Reviewed
[2019-05-18] MEDS: Melatonin 3 MG TAB 6 MG PO (18:19)
--- NOTE | 2019-05-18 19:30 | PGE_ITS ---
Date of Service Date of service: 05/18/19 Time of Service: 16:15 Assessment and Plan Assessment and plan (1) Acute on chronic diastolic heart failure: Status: Acute Assessment and plan: As above. Patient history of coronary artery disease, but troponin is negative. We have started a furosemide drip and this can be titrated in the ICU. I did review his recent echocardiogram from March 17 which showed preserved ejection fraction of 60% and no significant valvular disease. (2) Acute adrenal insufficiency: Status: Chronic Assessment and plan: Patient has history of adrenal insufficiency in the past. He tends to respond to corticosteroids in the setting of sepsis although at present time he does not appear to be septic. Nevertheless the stress of hypoxemia in the setting of acute on chronic heart failure deserves a short course of stress dose hydrocortisone. He will be treated with hydrocortisone for 3 days and then tapered to his baseline (3) Leg wound, left: Status: Chronic Assessment and plan: This did not appear to be infected. Wound care consults been requested. Dressing changes are being applied as per wound care nurses recommendations. Qualifiers: Encounter type: subsequent encounter Qualified Code(s): S81.802D - Unspecified open wound, left lower leg, subsequent encounter (4) Complicated UTI (urinary tract infection): Status: Ruled-out Assessment and plan: Patient had a moderate amount of bacteriuria as well as pyuria and therefore has been started on ceftriaxone on admission for treatment of possible complicated UTI. He did have a leukocytosis on admission which is resolved. At present urine culture is no growth after 24 hours. Blood culture showed no growth. He has MRSA positive per his MRSA screen. (5) Diabetes mellitus: Status: Chronic Assessment and plan: In addition to his home dose of basal insulin with Lantus he has been placed on sliding scale NovoLog. I have added NPH at 0.5units/mg of hydrocortisone to be given times with his hydrocortisone. This should blunt the hyperglycemic response to his steroids.. Qualifiers: Diabetes mellitus type: type 2 Diabetes mellitus exterminator termite insulin use: with senior living use Diabetes mellitus complication status: with neurologic complications Diabetes mellitus complication detail: with polyneuropathy Qualified Code(s): E11.42 - Type 2 diabetes mellitus with diabetic polyneuropathy; Z79.4 - exterminator termite (current) use of insulin (6) Atrial flutter, paroxysmal: Status: Chronic Assessment and plan: Continue metoprolol for rate control. Other blood pressure medications are on hold at present time (7) CKD (chronic kidney disease): Status: Chronic Assessment and plan: Patient's creatinine is at 2.25 which is roughly his baseline. We will continue to monitor with daily BMPs while he is being diuresed. Potassium is 3.2 however he is receiving K-Dur 20 mEq twice a day. Qualifiers: Chronic kidney disease stage: unspecified stage Qualified Code(s): N18.9 - Chronic kidney disease, unspecified (8) Hypertension: Status: Chronic Assessment and plan: As above, antihypertensives are held, but may need to be resumed quickly, especially clonidine which may cause rebound hypertension. Qualifiers: Hypertension type: essential hypertension Qualified Code(s): I10 - Essential (primary) hypertension (9) Hypothyroidism: Status: Chronic Assessment and plan: Recent TSH dysuria is been euthyroid. No change in levothyroxine dose Qualifiers: Hypothyroidism type: acquired Qualified Code(s): E03.9 - Hypothyroidism, unspecified (10) Chronic bipolar disorder: Status: Chronic Assessment and plan: Mood has been stable. No change in outpatient psychiatric meds (11) Anemia: Status: Chronic Assessment and plan: Hemoglobin dropped slightly today to 7.5 g. He has an anemia of chronic kidney disease. There is been no evidence of GI bleeding according to the nursing staff. Does not appear to that he is on any PPI for GI protection. I will add Protonix to his regimen. Qualifiers: Anemia type: due to chronic kidney disease Chronic kidney disease stage: stage 4 (severe) Qualified Code(s): N18.4 - Chronic kidney disease, stage 4 (severe); D63.1 - Anemia in chronic kidney disease (12) DVT prophylaxis: Status: Acute Assessment and plan: He is on apixaban chronically. (13) Discharge planning issues: Status: Acute Assessment and plan: [facility] is hemodynamically stabilized from his CHF Subjective Subjective Interval history since last seen: Brendan is less short of breath today he denies any dyspnea at rest. He has a nonproductive cough. No fevers or chills. No chest pain. While the Lasix drip he diuresed a net -1200 mL yesterday and 3000 mL today. I switch him over from Lasix drip to IV Lasix. Patient remains in respiratory precautions for COVID-19 despite the fact that he is a permanent resident senior living and there is been no outbreaks of COVID-19 in his senior living and he has not traveled or come into any contact with unknown COVID-19 patient. Furthermore he has no fevers. Exam Narrative Exam Narrative: Morbidly obese male who is lying in semi-waddell position he is alert and oriented. HEENT is unremarkable. Neck is obese making it difficult to discern whether there is JVD or not. Lungs revealed bibasilar rales Heart is regular with no appreciable murmur rub or gallop. Should be noted however that it where a papular I had to wear and ventilated yang making it difficult to auscultate his chest. Abdomen is obese soft and nontender. Left leg has a chronic wound over the left lower tibia that has granulation tissue is moist there is no apparent purulent discharge. Objective Objective Clinical Data: Abnormal lab results 05/18/19 05/18/19 05/18/19 Range/Units 06:30 06:30 06:30 RBC 3.51 L (4.50-6.00) m/cumm Hgb 7.5 L (13.5-17.5) g/dL Hct 28.4 L (40.0-50.0) % MCH 21.4 L (27.0-33.0) pg MCHC 26.4 L (32.0-36.0) g/dL RDW 17.4 H (11.8-14.1) % MPV 11.2 H (8.0-11.0) fL Absolute Neutrophils 7.46 H (1.2-6.7) k/cumm Absolute Lymphocytes 0.34 L (1.2-3.4) k/cumm Sodium 146 H (136-145) mmol/L Potassium 3.2 L (3.5-5.1) mmol/L Carbon Dioxide 39.5 H (21.0-32.0) mmol/L Anion Gap 2.5 L (3-11) mmol/L BUN 48 H (7-18) mg/dL Creatinine 2.25 H (0.70-1.30) mg/dL Glucose 264 H D (74-106) mg/dL Hemoglobin A1c 8.4 H (3.8-5.6) % Calcium 8.4 L (8.5-10.1) mg/dL Vital Signs Temperature 36.4 C L 05/18/19 15:31 Temperature Source Temporal Artery Scan 05/18/19 15:31 Pulse 62 05/18/19 13:10 Pulse 55 L 05/18/19 15:00 Respiratory Rate 15 05/18/19 13:10 Respiratory Effort 05/18/19 15:31 Respiratory Depth Shallow 05/18/19 15:31 Respiratory Pattern Apnea 05/18/19 15:31 Blood Pressure 157/57 H 05/18/19 12:02 Blood Pressure Mean 85 05/18/19 03:07 Blood Pressure Position Supine 05/18/19 03:07 Pulse Oximetry 76 L 05/18/19 15:45 Oxygen Delivery Method Room Air 05/18/19 15:45 Oxygen Flow Rate 0 05/18/19 15:45 Fraction of Inspired Oxygen (FIO2) 30 05/18/19 13:10 Pain Level 0 05/18/19 15:31 Comment 05/18/19 12:02 Intake & Output 05/17/19 05/18/19 05/18/19 23:59 11:59 23:59 Intake Total 400 / 400 800 / 800 Output Total 1600 / 1600 1600 / 2750 1150 / 2750 Balance -1200 / -1200 -1600 / -1950 -350 / -1950 Weight 110.5 kg 110.5 kg Intake: IV 160 / 160 20 / 20 Oral 240 / 240 780 / 780 Output: Urine 1400 / 1400 1400 / 2400 1000 / 2400 Stool 200 / 200 200 / 350 150 / 350 Other: Urine Color Yellow Yellow Yellow Urine Appearance Cloudy Clear Clear Comment ruiz to gravity Ruiz in place and draining. Pt put out approximately 2L over the last [address] and draining. Pt just got 40mg Lasix IVP and ruiz empty Stool Occult Blood Negative Negative Stool Characteristics Liquid Liquid Mucoid Mucoid Laboratory Results WBC 8.17 k/cumm (4.4-10.8) 05/18/19 06:30 RBC 3.51 m/cumm (4.50-6.00) L 05/18/19 06:30 Hgb 7.5 g/dL (13.5-17.5) L 05/18/19 06:30 Hct 28.4 % (40.0-50.0) L 05/18/19 06:30 MCV 80.9 fL (80-95) 05/18/19 06:30 MCH 21.4 pg (27.0-33.0) L 05/18/19 06:30 MCHC 26.4 g/dL (32.0-36.0) L 05/18/19 06:30 RDW 17.4 % (11.8-14.1) H 05/18/19 06:30 Plt Count 272 x1000/uL (130-400) 05/18/19 06:30 MPV 11.2 fL (8.0-11.0) H 05/18/19 06:30 Immature Gran % 1.3 % 05/18/19 06:30 Neutrophils % 91.3 05/18/19 06:30 Lymphocytes % 4.2 05/18/19 06:30 Monocytes % 3.1 05/18/19 06:30 Eosinophils % 0.0 05/18/19 06:30 Basophils % 0.1 05/18/19 06:30 Absolute Neutrophils 7.46 k/cumm (1.2-6.7) H 05/18/19 06:30 Absolute Lymphocytes 0.34 k/cumm (1.2-3.4) L 05/18/19 06:30 Absolute Monocytes 0.25 k/cumm (0.11-0.7) 05/18/19 06:30 Absolute Eosinophils 0.00 k/cumm (0.0-0.7) 05/18/19 06:30 Absolute Basophils 0.01 k/cumm (0.0-0.2) 05/18/19 06:30 Differential Comment Rbc morph reviewed 05/17/19 11:41 RBC Morphology See below 05/17/19 11:41 Polychromasia Present 05/17/19 11:41 Hypochromasia 2+ 05/17/19 11:41 Poikilocytosis 2+ 05/17/19 11:41 Basophilic Stippling Present 05/17/19 11:41 Anisocytosis 2+ 05/17/19 11:41 Microcytosis 1+ 05/17/19 11:41 Macrocytosis 1+ 05/17/19 11:41 ABG Sample Site Right radial 05/17/19 16:20 ABG pH 7.32 (7.35-7.45) L 05/17/19 16:20 ABG pCO2 77 mmHg (34-47) H* 05/17/19 16:20 ABG pO2 56 mmHg (83-108) L 05/17/19 16:20 ABG HCO3 40 mmol/L (22-28) H 05/17/19 16:20 ABG Total CO2 39 mmol/L (22-29) H 05/17/19 16:20 ABG O2 Saturation 90 % (94-98) L 05/17/19 16:20 ABG Base Excess 13.9 mmol/L (-3-3) H 05/17/19 16:20 FiO2 30 % 05/17/19 16:20 Sodium 146 mmol/L (136-145) H 05/18/19 06:30 Potassium 3.2 mmol/L (3.5-5.1) L 05/18/19 06:30 Chloride 104 mmol/L (98-107) 05/18/19 06:30 Carbon Dioxide 39.5 mmol/L (21.0-32.0) H 05/18/19 06:30 Anion Gap 2.5 mmol/L (3-11) L 05/18/19 06:30 BUN 48 mg/dL (7-18) H 05/18/19 06:30 Creatinine 2.25 mg/dL (0.70-1.30) H 05/18/19 06:30 Estimated GFR/1.73 m2 29.90 (mL/min/1.73m2) 05/18/19 06:30 Glucose 264 mg/dL (74-106) H D 05/18/19 06:30 Hemoglobin A1c 8.4 % (3.8-5.6) H 05/18/19 06:30 Lactate 0.8 mmol/L (0.6-1.4) 05/17/19 13:05 Calcium 8.4 mg/dL (8.5-10.1) L 05/18/19 06:30 Magnesium 2.0 mg/dL (1.8-2.4) 05/17/19 11:41 Total Bilirubin 0.4 mg/dL (0.2-1.0) 05/17/19 11:41 AST 27 U/L (15-37) 05/17/19 11:41 ALT 18 U/L (16-63) 05/17/19 11:41 Alkaline Phosphatase 122 U/L (46-116) H 05/17/19 11:41 Troponin I < 0.05 ng/Ml (<0.06) 05/17/19 14:30 Total Protein 6.5 g/dL (6.4-8.2) 05/17/19 11:41 Albumin 2.7 g/dL (3.4-5.0) L 05/17/19 11:41 Urine Color Yellow (Yellow) 05/17/19 13:25 Urine Clarity Sl cloudy (Clear) 05/17/19 13:25 Urine pH 6.0 (5-8) 05/17/19 13:25 Ur Specific Wilder 1.020 (1.005-1.025) 05/17/19 13:25 Urine Protein 30 mg/dL (Negative) H 05/17/19 13:25 Urine Ketones Negative mg/dL (Negative) 05/17/19 13:25 Urine Blood Trace-intact (Negative) H 05/17/19 13:25 Urine Nitrite Negative (Negative) 05/17/19 13:25 Urine Bilirubin Negative (Negative) 05/17/19 13:25 Urine Urobilinogen 0.2 EU/dL (Up TO 0.2) 05/17/19 13:25 Ur Leukocyte Esterase Moderate (Negative) H 05/17/19 13:25 Urine RBC 3-5 HPF (0-2) H 05/17/19 13:25 Urine WBC >50 HPF (0-5) H 05/17/19 13:25 Ur Epithelial Cells Negative HPF (Negative) 05/17/19 13:25 Urine Crystals Negative HPF (Negative) 05/17/19 13:25 Urine Bacteria Moderate HPF (Negative) 05/17/19 13:25 Urine Casts Negative LPF (Negative) 05/17/19 13:25 Urine Mucus Negative (Negative) 05/17/19 13:25 Ur Culture Indicated? Yes 05/17/19 13:25 Urine Glucose Negative mg/dL (Negative) 05/17/19 13:25
[2019-05-18 20:14] LABS: COVID-19 RT-PCR Result Not Detected (NotDetected)
[2019-05-18] MEDS: Potassium Chloride 20 MEQ TABCR PO (22:08)
[2019-05-18] MEDS: risperiDONE 1 MG TAB 2 MG PO (22:09)
[2019-05-18] MEDS: Insulin NPH-Human 300 UNITS/3 ML PEN 50 UNIT SC (22:27)
[2019-05-19] VITALS (15 sets, daily range): BP systolic 108–193; BP diastolic 58–89; PULSE 45–86; RESP 12–24; TEMP 36–37.5; O2SAT 90–100
[2019-05-19] MEDS: cloNIDine 0.1 MG TAB PO ×3 (00:07→20:53)
[2019-05-19] MEDS: Melatonin 3 MG TAB 6 MG PO ×2 (00:07→23:46)
[2019-05-19] MEDS: Insulin NPH-Human 300 UNITS/3 ML PEN 50 UNIT SC ×2 (04:26→12:40)
[2019-05-19] MEDS: Hydrocortisone SOD SUC. 100 MG VIAL IVP ×2 (04:27→12:36)
[2019-05-19] MEDS: Levothyroxine 25 MCG TAB 12.5 MCG PO (06:29)
[2019-05-19] MEDS: Insulin Aspart 300 UNITS/3 ML PEN 10 UNITS SC ×2 (08:30→12:38)
[2019-05-19] MEDS: Insulin Aspart 300 UNITS/3 ML PEN SC ×5 (08:32→17:13)
[2019-05-19] MEDS: Magnesium Chloride 64 MG TABCR PO ×2 (08:50→20:18)
[2019-05-19] MEDS: Sodium Bicarbonate 650 MG TAB PO ×3 (08:50→20:19)
[2019-05-19] MEDS: Multivitamin TAB 1 TAB PO (08:51)
[2019-05-19] MEDS: Cyanocobalamin 500 MCG TAB 1000 MCG PO (08:51)
[2019-05-19] MEDS: Metoprolol 25 MG TAB PO ×2 (08:51→20:19)
[2019-05-19] MEDS: Lactobacillus Acidophilus CAP 1 CAP PO ×3 (08:51→20:19)
[2019-05-19] MEDS: Potassium Chloride 20 MEQ TABCR PO ×3 (08:51→20:18)
[2019-05-19] MEDS: Ascorbic Acid 500 MG TAB 250 MG PO ×2 (08:52→20:19)
[2019-05-19] MEDS: Cetirizine 10 MG TAB PO (08:53)
[2019-05-19] MEDS: Apixaban 5 MG TAB PO (08:53)
[2019-05-19] MEDS: Venlafaxine 37.5 MG CAPCR 112.5 MG PO (08:53)
[2019-05-19] MEDS: Gabapentin 300 MG CAP PO ×3 (08:53→20:18)
[2019-05-19] MEDS: Furosemide 40 MG/4 ML VIAL IVP (08:53)
[2019-05-19] MEDS: Insulin Glargine 300 UNITS/3 ML PEN 40 UNITS SC ×2 (08:55→20:21)
--- NOTE | 2019-05-19 09:09 | W.INDIABCONS ---
Date of service: 05/19/19 Time of Service: 09:10 Diabetes Inpatient Consult DESCRIPTION/ASSESSMENT: Appreciate diabetes consult for Brendan Corley who is hospitalized iwth heart failure and adrenal insufficiency. He is well known to distant outpatient support and recent inpatient visits. BMI 32 A1c 8.4 GFR 29 Brendan is hyperglycemic here in the 300s eating 30-45 grams carbohydrate. He receives his usual insulin dosing of 40uLantus twice daily; 50uNPH with steroid administration, 10u mealtime insulin to cover food in addition to sensitive insulin correction. Even with 14-18 units mealtime plus correction insulin blood sugars are increasing as the day progresses. [facility] and does not manage any aspect of his diabetes independently, relying on staff to do monitoring and managing medications. INTERVENTION: No individual diabetes self management support is warranted at this time. Blood sugars indicate need for higher insulin dosing for meals to prevent increasing blood sugars and the need for high insulin correction. Also increasing insulin correction to resistant may be more effective at effecting hyperglycemia. PLAN: Suggest increase in insulin correction to resistant given BMI and hyperglycemia and mealtime insulin to16 units if he is eating most of his offered meals. Time Spent in Nutritional Counseling and Treatment: 0 minutes face to face
--- NOTE | 2019-05-19 09:55 | INITIAL_ITS ---
- If Service Date Differs Date of service: 05/19/19 Time of Service: 09:55 Care Management Initial Assess REASON FOR HOSPITALIZATION:: Resp failure, CHF PAST MEDICAL HISTORY/PAST SURGICAL HISTORY:: CHF, Anemia, Anxiety, Back Pain, Bipolar Disorder, CAD, Cardiopulmonary arrest with successful resuscitation, cholelithiasis, anxiety, insomnia, chronic pain, CKD, Crohn's Disease, DM type 2 with diabetic neuropathy, diabetic foot ulcer, dyslipidemia, heme positive stool, hemorrhagic cystitis, hypertension, hypoandrogenism, hypothyroidism, impaired mobility and ADLs, Obesity, Pedal edema, Osteoarthritis of both knees, poor self care, poorly controlled DM2 with circulatory disorder, RA, TKA, Fracture ORIF R distal humerus fracture. 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 Brendan has a sister, Lian Hardy (P#[phone]) who lives in [facility] but they have limited contact. They do speak via phone every couple of weeks. he also has numerous nieces and nephews but states he rarely sees them. His sister is his only identified family support. Brendan enjoys reading and watching TV. CURRENT FUNCTIONAL STATUS:: Brendan is currently in the Covid unit, CM will meet with him when he arrives to the floor. His Covid was negitive and he should come to the medical surgical unit today. ADVANCE DIRECTIVES:: [facility] on file Has patient been provided with information about the portal?: No Did the patient sign up for the portal?: No CODE STATUS:: Full Code INSURANCE COVERAGE / FINANCIAL ISSUES:: Medicaid and Medicare CURRENT HOME/COMMUNITY SERVICES/EQUIPMENT:: Brendan lives at the [facility], he has a BIPAP he uses at the [facility], he also has an ostomy. All his care needs are met at the [facility]. PRIMARY CARE PHYSICIAN:: Erica Blake POTENTIAL DISCHARGE NEEDS:: Coordiantion of return to the [facility] when medically ready PATIENT/FAMILY EDUCATION NEEDS:: Discharge education, limitations and coordiantion of follow up care with the [facility]. ANTICIPATED BARRIERS TO DISCHARGE:: None anticipated TRANSPORTATION:: Via [facility] wheelchair van coordianted by CM PLAN:: Brendan will be discharged to the [facility] when he is medically ready. He will transition to the medical surgical floor today. CM will continue to assess and coordinate disposition.
[2019-05-19] MEDS: Ferrous Sulfate 325 MG TAB PO (10:43)
--- NOTE | 2019-05-19 15:48 | WOUNDCONS_ITS ---
- If Service Date Differs Date of service: 05/19/19 Time of Service: 15:10 Wound Initial Evaluation Narrative: Patient is a 59 year old male seen here for respiratory failure and CHF. PMHX H&P, labs, and other pertinent information regarding the wound was reviewed. Patient stated that he bumped his leg on a trucks running board on the Friday of the [facility] , and the wound started developing from there. - Wound Left Lower Calf Wound Type: Statis Ulcer Wound General Appearance: Reddened Wound Bed Greatest Portion: Red (Granulation) Wound Bed Lesser Portion: Yellow (Slough) Wound Surrounding Tissue Appearance: [place], Edges Rolled, Normal/Healthy Percent of Wound Bed Granulated/Red: 50 Percent of Wound Bed Slough/Yellow: 50 Wound Length: 12.1 cm Wound Width: 5.5 cm Wound Depth: 0.2 cm Wound Drainage Amount: Minimal (Scant yellow drainage noted on the debrisoft sponge, chai blood in the wound bed post debridement) Wound Drainage Odor: None/Absent Wound Drainage Description: Bloody (Yellow drainage noted on the debrisoft songe after debridement, chai blood cleaned in the wound bed after debridement) Wound Topical Solution/Irrigant: Saline Irrigant Wound Debridement Method: Mechanical Wound Debridement Result: Healthy Tissue Revealed (5o% granulation tissue and 50% slough remaining in the wound bed), Yellow Sloughing Remains Wound Debridement Amount of Tissue Removed: Minimal - Circulation, Sensation, Motion Edema Degree: 1+ Peripheral Pulse Strength: Normal Capillary Refill: Less than 3 seconds Sensation Description: Numbness (Patient stated he has minimal feeling on the bottoms of his feet.) - SUSANNA Comment:: SUSANNA not indicated - Pain Pain Level: 1 Pain Scale Used: Visual Analog Scale 0-10 Pain Description: Burning Pain Duration/Frequency: Occasional Patient has a stasis ulcer, that was covered with mepilex silver, patient stated that they were just using bandaids previously. Denies pain, but stated it itches terribly at times, and at times will keep him up at night. Wound bed is 50% granulation tissue, and 50% slough, Edges of the wound are rolled between 4 o'clock and 6 o'clock. - Treatment/Dressing Change Cleanse With: Cleanser with Surfactant, Debrisoft Dressing Types: Unna Boot Dressing Comment: Due to patients past hx of CHF. Reviewed recomendation for Unna boot with Dr. Fisher, prior to applying. He approved of the therapy - Recomendation Recomendation:: Cleanse leg with Skintegrity and a Debrisoft sponge. Then pat dry. Apply An Unna-Z boot. Cover with Kerlix. Change every 3 days. Physcian/Nurse Practioner Notified: Yes (Dr. Fisher) Treatment Time - Time Total Time Spent with Patient: 45 minutes - Patient Will be Seen Weekly Treatment: 2x/wk (every 3 days) - For: For:: 1 week
[2019-05-19] MEDS: Furosemide 40 MG TAB PO (16:18)
--- NOTE | 2019-05-19 16:45 | RESPIRATORY ---
Contacted [facility] about Brendan's own home BiPAP unit. Hank, the nurse of his unit, stated that [facility] just moved all of Brendan's belongings to a new room and that his home unit was buried somewhere in there and that they will attempt to find it and bring it in tomorrow morning if he is to stay for a few days. Nursing was unsure of what his home settings on the unit are, only that he wears 2L O2 during the day, and sometimes at night when he's not wearing his mask. -Tonny Becerra, EXHAUST WORKER.
--- NOTE | 2019-05-19 18:00 | W.PM.PROGNOT ---
Date of Service Date of service: 05/19/19 Time of Service: 18:00 Assessment and Plan Assessment and plan (1) Acute on chronic diastolic heart failure: Status: Acute Assessment and plan: Improving. Lasix has been changed to oral. Will monitor overnight, repeat labs and CXR in the a.m. Possible transfer to the [facility] tomorrow. (2) Acute adrenal insufficiency: Status: Chronic Assessment and plan: I have begun to de-escalate his hydrocortisone to 50 mg IV q 8hr. I think tomorrow he can go on oral hydrocortisone but at stress dose levels and taper over a week. (3) Leg wound, left: Status: Chronic Assessment and plan: This did not appear to be infected. Wound care nurse was consulted and orders written for dressing changes. Qualifiers: Encounter type: subsequent encounter Qualified Code(s): S81.802D - Unspecified open wound, left lower leg, subsequent encounter (4) Diabetes mellitus: Status: Chronic Assessment and plan: Blood sugars are still high running in the mid to high 200's but this is down from the 300 to 400 range over the past couple of days. He is now on NPH for his corticosteroid coverage and I have increased his sliding scale from his prior insulin sensitive leve to insulin resistant scale. Also I changed his meal coverage from a fixed 10 units per meal to a carb coverage at a 1:5 ratio. Qualifiers: Diabetes mellitus type: type 2 Diabetes mellitus exterminator termite insulin use: with exterminator termite use Diabetes mellitus complication status: with neurologic complications Diabetes mellitus complication detail: with polyneuropathy Qualified Code(s): E11.42 - Type 2 diabetes mellitus with diabetic polyneuropathy; Z79.4 - MCFP (current) use of insulin (5) Atrial flutter, paroxysmal: Status: Chronic Assessment and plan: Continue metoprolol for rate control. His rate is well controlled and at times he is bradycardic into the 40's and 50's. (6) CKD (chronic kidney disease): Status: Chronic Assessment and plan: His hypokalemia has been corrected. His creatinine is down to 2.2 which appears to be his baseline. will continue monitoring while on diuretics. Qualifiers: Chronic kidney disease stage: unspecified stage Qualified Code(s): N18.9 - Chronic kidney disease, unspecified (7) Hypertension: Status: Chronic Assessment and plan: Clonidine and norvasc have been resumed. Will monitor and adjust accordingly. Qualifiers: Hypertension type: essential hypertension Qualified Code(s): I10 - Essential (primary) hypertension (8) Hypothyroidism: Status: Chronic Assessment and plan: Recent TSH dysuria is been euthyroid. No change in levothyroxine dose Qualifiers: Hypothyroidism type: acquired Qualified Code(s): E03.9 - Hypothyroidism, unspecified (9) Chronic bipolar disorder: Status: Chronic Assessment and plan: Mood has been stable. No change in outpatient psychiatric meds (10) Anemia: Status: Chronic Assessment and plan: Hb dropped to 7.5 gm today. He has heme positive stool but no overt bleeding. He remains on protonix for GI protection. I will repeat his labs in the a.m. Qualifiers: Anemia type: due to chronic kidney disease Chronic kidney disease stage: stage 4 (severe) Qualified Code(s): N18.4 - Chronic kidney disease, stage 4 (severe); D63.1 - Anemia in chronic kidney disease (11) DVT prophylaxis: Status: Acute Assessment and plan: He is on apixaban chronically. If he continues to drop his Hb then we may need to stop his Apixaban (12) Discharge planning issues: Status: Acute Assessment and plan: Patient will return to the [facility] once he is hemodynamically stabilized from his CHF Subjective Subjective Interval history since last seen: Patient denies any shortness of breath or chest pain. Overall he feels improving and is asking when he can return to the [facility]. I explained on that were continuing to diurese him. His urine culture came back no growth and therefore I discontinued his antibiotics. He has had no fever overnight. Holly repeat his chest x-ray as well as his labs in the morning including proBNP CBC and BMP. Semi-was morning labs did not get ordered for today. Have since gotten a BMP this evening which shows his electrolytes are acceptable his sodium is 144 his potassium is 3.9. His BUN is slightly elevated 65 which is higher than his previous value of 48 although it appears that his baseline BUN is around 50 his creatinine today is 2.22 which is unchanged his baseline creatinine varies from 2 upwards of 3 but generally it seems to be running around 2.2-2.5 Exam Narrative Exam Narrative: Blood pressures are trending upward now into the 160's despite resumption of his clonidine (at lower dose d/t bradycardia) He is alert and oriented. No distress Lungs have bilateral basilar rales; upper barnard are clear Heart is regular, harsh systolic murmur over apex; no thrill or heave Abdomen is soft, obese, nontender left leg wound is covered w/ dressing which I did not take down today. I examined this wound yesterday and found no purulence. The wound care nurse has reported his finding to me and I have cosigned his dressing orders. Objective Objective Clinical Data: Vital Signs Temperature 37.1 C 05/19/19 14:14 Temperature Source Tympanic 05/19/19 14:14 Pulse 60 05/19/19 14:14 Pulse Rhythm Regular 05/19/19 14:22 Pulse 55 L 05/19/19 00:00 Respiratory Rate 22 05/19/19 14:14 Respiratory Effort 05/19/19 14:22 Respiratory Depth Shallow 05/19/19 14:22 Respiratory Pattern Tachypnea 05/19/19 14:22 Blood Pressure 133/89 05/19/19 14:14 Blood Pressure Mean 101 05/19/19 08:43 Blood Pressure Position Sitting 05/19/19 08:43 Pulse Oximetry 97 05/19/19 14:21 Oxygen Delivery Method Nasal Cannula 05/19/19 14:21 Oxygen Flow Rate 3 05/19/19 16:12 Fraction of Inspired Oxygen (FIO2) 30 05/19/19 02:00 Pain Level 1 05/19/19 16:38 Comment 05/19/19 14:14 Intake & Output 05/18/19 05/19/19 05/19/19 23:59 11:59 23:59 Intake Total 850 / 850 500 / 1220 720 / 1220 Output Total 2450 / 4050 1700 / 2875 1175 / 2875 Balance -1600 / -3200 -1200 / -1655 -455 / -1655 Intake: IV 70 / 70 Oral 780 / 780 500 / 1220 720 / 1220 Output: Urine 1900 / 3300 1550 / 2050 500 / 2050 Stool 550 / 750 150 / 825 675 / 825 Other: Urine Color Yellow Yellow Yellow Urine Appearance Clear Clear Clear Comment ruiz cath in place draining clear yellow urine. Ruiz and ostomy bag intact. patent and draining on admission Stool Occult Blood Positive Laboratory Results WBC 8.17 k/cumm (4.4-10.8) 05/18/19 06:30 RBC 3.51 m/cumm (4.50-6.00) L 05/18/19 06:30 Hgb 7.5 g/dL (13.5-17.5) L 05/18/19 06:30 Hct 28.4 % (40.0-50.0) L 05/18/19 06:30 MCV 80.9 fL (80-95) 05/18/19 06:30 MCH 21.4 pg (27.0-33.0) L 05/18/19 06:30 MCHC 26.4 g/dL (32.0-36.0) L 05/18/19 06:30 RDW 17.4 % (11.8-14.1) H 05/18/19 06:30 Plt Count 272 x1000/uL (130-400) 05/18/19 06:30 MPV 11.2 fL (8.0-11.0) H 05/18/19 06:30 Immature Gran % 1.3 % 05/18/19 06:30 Neutrophils % 91.3 05/18/19 06:30 Lymphocytes % 4.2 05/18/19 06:30 Monocytes % 3.1 05/18/19 06:30 Eosinophils % 0.0 05/18/19 06:30 Basophils % 0.1 05/18/19 06:30 Absolute Neutrophils 7.46 k/cumm (1.2-6.7) H 05/18/19 06:30 Absolute Lymphocytes 0.34 k/cumm (1.2-3.4) L 05/18/19 06:30 Absolute Monocytes 0.25 k/cumm (0.11-0.7) 05/18/19 06:30 Absolute Eosinophils 0.00 k/cumm (0.0-0.7) 05/18/19 06:30 Absolute Basophils 0.01 k/cumm (0.0-0.2) 05/18/19 06:30 Differential Comment Rbc morph reviewed 05/17/19 11:41 RBC Morphology See below 05/17/19 11:41 Polychromasia Present 05/17/19 11:41 Hypochromasia 2+ 05/17/19 11:41 Poikilocytosis 2+ 05/17/19 11:41 Basophilic Stippling Present 05/17/19 11:41 Anisocytosis 2+ 05/17/19 11:41 Microcytosis 1+ 05/17/19 11:41 Macrocytosis 1+ 05/17/19 11:41 ABG Sample Site Right radial 05/17/19 16:20 ABG pH 7.32 (7.35-7.45) L 05/17/19 16:20 ABG pCO2 77 mmHg (34-47) H* 05/17/19 16:20 ABG pO2 56 mmHg (83-108) L 05/17/19 16:20 ABG HCO3 40 mmol/L (22-28) H 05/17/19 16:20 ABG Total CO2 39 mmol/L (22-29) H 05/17/19 16:20 ABG O2 Saturation 90 % (94-98) L 05/17/19 16:20 ABG Base Excess 13.9 mmol/L (-3-3) H 05/17/19 16:20 FiO2 30 % 05/17/19 16:20 Sodium 146 mmol/L (136-145) H 05/18/19 06:30 Potassium 3.2 mmol/L (3.5-5.1) L 05/18/19 06:30 Chloride 104 mmol/L (98-107) 05/18/19 06:30 Carbon Dioxide 39.5 mmol/L (21.0-32.0) H 05/18/19 06:30 Anion Gap 2.5 mmol/L (3-11) L 05/18/19 06:30 BUN 48 mg/dL (7-18) H 05/18/19 06:30 Creatinine 2.25 mg/dL (0.70-1.30) H 05/18/19 06:30 Estimated GFR/1.73 m2 29.90 (mL/min/1.73m2) 05/18/19 06:30 Glucose 264 mg/dL (74-106) H D 05/18/19 06:30 Hemoglobin A1c 8.4 % (3.8-5.6) H 05/18/19 06:30 Lactate 0.8 mmol/L (0.6-1.4) 05/17/19 13:05 Calcium 8.4 mg/dL (8.5-10.1) L 05/18/19 06:30 Magnesium 2.0 mg/dL (1.8-2.4) 05/17/19 11:41 Total Bilirubin 0.4 mg/dL (0.2-1.0) 05/17/19 11:41 AST 27 U/L (15-37) 05/17/19 11:41 ALT 18 U/L (16-63) 05/17/19 11:41 Alkaline Phosphatase 122 U/L (46-116) H 05/17/19 11:41 Troponin I < 0.05 ng/Ml (<0.06) 05/17/19 14:30 Total Protein 6.5 g/dL (6.4-8.2) 05/17/19 11:41 Albumin 2.7 g/dL (3.4-5.0) L 05/17/19 11:41 Urine Color Yellow (Yellow) 05/17/19 13:25 Urine Clarity Sl cloudy (Clear) 05/17/19 13:25 Urine pH 6.0 (5-8) 05/17/19 13:25 Ur Specific Chandler 1.020 (1.005-1.025) 05/17/19 13:25 Urine Protein 30 mg/dL (Negative) H 05/17/19 13:25 Urine Ketones Negative mg/dL (Negative) 05/17/19 13:25 Urine Blood Trace-intact (Negative) H 05/17/19 13:25 Urine Nitrite Negative (Negative) 05/17/19 13:25 Urine Bilirubin Negative (Negative) 05/17/19 13:25 Urine Urobilinogen 0.2 EU/dL (Up TO 0.2) 05/17/19 13:25 Ur Leukocyte Esterase Moderate (Negative) H 05/17/19 13:25 Urine RBC 3-5 HPF (0-2) H 05/17/19 13:25 Urine WBC >50 HPF (0-5) H 05/17/19 13:25 Ur Epithelial Cells Negative HPF (Negative) 05/17/19 13:25 Urine Crystals Negative HPF (Negative) 05/17/19 13:25 Urine Bacteria Moderate HPF (Negative) 05/17/19 13:25 Urine Casts Negative LPF (Negative) 05/17/19 13:25 Urine Mucus Negative (Negative) 05/17/19 13:25 Ur Culture Indicated? Yes 05/17/19 13:25 Urine Glucose Negative mg/dL (Negative) 05/17/19 13:25 Coronavirus (PCR) Not detected (NotDetected) 05/17/19 11:41
[2019-05-19 18:50] LABS: Anion Gap 2.5 mmol/L (3-11); BUN 65 mg/dL (7-18); CO2 41.5 mmol/L (21.0-32.0); CREATININE 2.22 mg/dL (0.70-1.30); Calcium 8.8 mg/dL (8.5-10.1); Chloride 100 mmol/L (98-107); Estimated GFR 30.37 (mL/min/1.73m2); Glucose 277 mg/dL (74-106); Potassium 3.9 mmol/L (3.5-5.1); Sodium 144 mmol/L (136-145)
[2019-05-19] MEDS: Terazosin 2 MG CAP 4 MG PO (20:18)
[2019-05-19] MEDS: Insulin NPH-Human 300 UNITS/3 ML PEN 25 UNIT SC (20:20)
[2019-05-19] MEDS: amLODIPine 5 MG TAB 10 MG PO (20:53)
[2019-05-19] MEDS: Hydrocortisone SOD SUC. 100 MG VIAL 50 MG IVP (20:55)
[2019-05-19] MEDS: Normal Saline Flush 10 ML SYR IVP (20:56)
[2019-05-19] MEDS: risperiDONE 1 MG TAB 2 MG PO (23:46)
[2019-05-20 00:01] VITALS: BP 163/80; PULSE 61; RESP 20; TEMP 36.7; O2SAT 98
[2019-05-20] MEDS: Insulin NPH-Human 300 UNITS/3 ML PEN 25 UNIT SC ×2 (04:40→12:05)
[2019-05-20] MEDS: Levothyroxine 25 MCG TAB 12.5 MCG PO (04:40)
[2019-05-20] MEDS: Hydrocortisone SOD SUC. 100 MG VIAL 50 MG IVP ×2 (04:41→12:07)
[2019-05-20] MEDS: Acetaminophen 325 MG TAB 650 MG PO (04:48)
[2019-05-20 04:49] VITALS: BP 180/84; PULSE 66; RESP 18; TEMP 35.9; O2SAT 96
[2019-05-20 06:30] VITALS: BP 132/69
[2019-05-20 07:04] LABS: Abs Immature Grans 0.06 k/cumm (0.0-0.09); Absolute Basophil Count 0.01 k/cumm (0.0-0.2); Absolute Eosinophil Count 0.01 k/cumm (0.0-0.7); Absolute Monocyte Count 0.42 k/cumm (0.11-0.7); Absolute Neutrophil Count 5.62 k/cumm (1.2-6.7); Basophils % 0.1; Eosinophils % 0.1; HCT 29.5 % (40.0-50.0); HGB 7.9 g/dL (13.5-17.5); Immature Grans % 0.9 %; Lymphocytes % 8.9; Mean Corp. HGB Concentration 26.8 g/dL (32.0-36.0); Mean Corpuscular Hemoglobin 21.8 pg (27.0-33.0); Mean Corpuscular Volume 81.5 fL (80-95); Mean Platelet Volume 10.3 fL (8.0-11.0); Monocytes % 6.3; Neutrophils % 83.7; Platelet Count 203 x1000/uL (130-400); RBC 3.62 m/cumm (4.50-6.00); RBC Distribution Width 17.4 % (11.8-14.1); White Blood Cell Count 6.72 k/cumm (4.4-10.8)
[2019-05-20 07:22] LABS: Anisocytosis 2+
[2019-05-20 07:23] LABS: Basophilic Stippling Present; Hypochromasia 2+; Microcytosis 1+
[2019-05-20 07:24] LABS: Poikilocytes 2+
[2019-05-20 07:30] VITALS: BP 151/71; PULSE 58; RESP 18; TEMP 36.7; O2SAT 99
[2019-05-20 07:37] LABS: Anion Gap 1.1 mmol/L (3-11); BUN 68 mg/dL (7-18); CO2 41.9 mmol/L (21.0-32.0); CREATININE 1.96 mg/dL (0.70-1.30); Chloride 101 mmol/L (98-107); Estimated GFR 35.06 (mL/min/1.73m2); Glucose 293 mg/dL (74-106); NT-proBNP 2031 pg/mL (<300); Potassium 3.8 mmol/L (3.5-5.1); Sodium 144 mmol/L (136-145)
[2019-05-20] MEDS: Ascorbic Acid 500 MG TAB 250 MG PO (08:01)
[2019-05-20] MEDS: Terazosin 2 MG CAP 4 MG PO (08:02)
[2019-05-20] MEDS: Pantoprazole 40 MG TABCR PO (08:02)
[2019-05-20] MEDS: Lactobacillus Acidophilus CAP 1 CAP PO (08:02)
[2019-05-20] MEDS: Venlafaxine 37.5 MG CAPCR 112.5 MG PO (08:02)
[2019-05-20] MEDS: Metoprolol 25 MG TAB PO (08:03)
[2019-05-20] MEDS: Gabapentin 300 MG CAP PO (08:03)
[2019-05-20] MEDS: Cyanocobalamin 500 MCG TAB 1000 MCG PO (08:03)
[2019-05-20] MEDS: Sodium Bicarbonate 650 MG TAB PO (08:03)
[2019-05-20] MEDS: Cetirizine 10 MG TAB PO (08:03)
[2019-05-20] MEDS: Multivitamin TAB 1 TAB PO (08:03)
[2019-05-20] MEDS: Furosemide 40 MG TAB PO (08:03)
[2019-05-20] MEDS: Potassium Chloride 20 MEQ TABCR PO (08:03)
[2019-05-20] MEDS: Magnesium Chloride 64 MG TABCR PO (08:03)
[2019-05-20] MEDS: cloNIDine 0.1 MG TAB PO (08:03)
[2019-05-20] MEDS: Insulin Glargine 300 UNITS/3 ML PEN 40 UNITS SC (08:04)
[2019-05-20] MEDS: amLODIPine 5 MG TAB 10 MG PO (08:04)
[2019-05-20] MEDS: Insulin Aspart 300 UNITS/3 ML PEN SC ×4 (08:05→12:07)
--- NOTE | 2019-05-20 08:30 | DI.RAD_ITS ---
EXAM: XR PORTABLE CHEST AP CLINICAL HISTORY: follow up CHF TECHNIQUE: 2D digital imaging was performed. COMPARISON: XR PORTABLE CHEST AP from 05/17/2019 FINDINGS: There is cardiomegaly and prominence of the pulmonary vasculature. The pulmonary infiltrates and eff usions appear stable. There is poor inspiration. Degenerative changes are seen in the spine. Posts urgical changes are seen in the shoulders bilaterally. IMPRESSION: Overall, no significant change in appearance of the chest is noted since 05/17/2019. DATA REPOSITORY: RADIATION DOSE DELIVERED:
[2019-05-20 08:40] VITALS: RESP 12
--- NOTE | 2019-05-20 09:43 | OTIE_ITS ---
Occupational Therapy Notes Inpatient Occupational Therapy Evaluation Date: 05/20/19 Referring Doctor: Karen Wood NP OT Orders: Non-urgent: Limited Ability Precautions: Fall, Standard PATIENT PROFILE/ADMITTING DIAGNOSIS: Pt is a 59 year old male who presented to the ER on 05/17/19 from [facility] [place] Pt was admitted to ICU/RICU pending a Covid-19 test which was negative. Pt was admitted to Med Surg for respiratory distress, acute adrenal insufficiency, acute diastolic heart failure, (L) leg wound, complicated UTI, DM, A-fib, chronic cholecystitis, toxic metabolic encephalopathy, CKD, HTN, Hypothyroidism, chronic bipolar disorder, anemia. Past Medical History: Medical History Acromegaly (Chronic) Acute on chronic kidney failure (Resolved) Adrenal insufficiency (Chronic) Ambulatory dysfunction (Chronic) Anemia (Chronic) Atrial flutter, paroxysmal (Chronic) Back pain (Chronic 06/21/13) CAD (coronary artery disease) (Chronic) Cardiopulmonary arrest with successful resuscitation (Resolved) Cholelithiasis (Chronic) Chronic anxiety (Chronic) Chronic bipolar disorder (Chronic) a. With history of psychosis. Chronic cholecystitis (Chronic) Chronic insomnia (Chronic) Chronic pain (Chronic) On both Methadone and Fentanyl as well as Ultram and Naproxen. CKD (chronic kidney disease) (Chronic) Complicated UTI (urinary tract infection) (Resolved) Diabetes mellitus (Chronic) Diabetic foot ulcer (Chronic) Diabetic ulcer of toe associated with diabetes mellitus due to underlying condition, with bone involvement without evidence of necrosis (Inactive) 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 (Resolved) Dyslipidemia (Chronic) Elevated troponin I level (Resolved) Endocarditis due to Staphylococcus (Resolved) Heme positive stool (Resolved) Hemorrhagic cystitis (Chronic) Hyperkalemia (Acute) Hypertension (Chronic) Hypomagnesemia (Chronic) Hypothyroidism (Chronic) Impaired mobility and ADLs (Chronic) Inability to get out of bed (Chronic 06/21/13) Lactic acidosis (Resolved) MRSA bacteremia (Resolved) Obesity (Chronic) a. Obesity though he has had significant weight loss since last seen. Osteoarthritis of both knees (Chronic) Severe. a. Gyov-vu-ovoh bilateral knees. 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 2 diabetes mellitus (Resolved) Palliative care encounter (Chronic) DObbertin Pedal edema (Chronic) Poor self care (Chronic 06/21/13) Poorly controlled type 2 diabetes mellitus with circulatory disorder (Chronic) Presence of IVC filter (Acute) Pulmonary hypertension (Chronic) Rheumatoid arthritis (Chronic) Sepsis (Resolved) Septic arthritis of elbow, right (Inactive) Toxic metabolic encephalopathy (Resolved) Toxic metabolic encephalopathy (Resolved) Ulcerative colitis (Chronic) UTI (urinary tract infection) (Resolved) UTI (urinary tract infection) due to Enterococcus (Resolved) Surgical History Arthroplasty of knee (Resolved 03/18/12) irrigation and lavage right Fracture, Open Treatment (Resolved) 06/06/17-[facility] [place] S/P ORIF RIGHT DISTAL HUMERUS FRACTURE History of insertion of T-tube into biliary tract (Chronic) S/P colectomy (Chronic) Current Functional Limitations: Decreased functional activity tolerance, decreased (I) in ADLs, decreased (B) UE ROM, increased pain in (R) UE decreasing gross and fine motor coordination during ADLs. Social History/Home Situation: Pt resides at [facility]. Pt is well known to OT. He had surgery on his (R) UE to remove a metal plate in his (R) elbow last year, and is still recovering with AROM for his (R). He notes that he is receiving PT/OT since last admission at the [facility] and notes that he requires (A) with bathing, dressing due to his weakness. Equipment owned/DME: [facility] which he uses for ambulation, he is a resident of SNF so all other DME are met through the facility. SUBJECTIVE: Pt was sitting on side of bed when OT arrived. He was agreeable to OT session and reports that he was previously at [facility] [place]. He states that he is feeling better and optimistic that he will be returning to [facility] today. OBJECTIVE: General Observation: IV (L) UE, telemetry, Pt is pleasant and agreeable to OT consult. Mental Status: A&Ox3 Pain: 2/10 pain in (L) LE due to wound. ROM: RUE Shoulder flexion ~65*, elbow flexion to 80*, decreased hand/digit ROM L UE Shoulder flexion ~70*, elbow flexion WFL with hard end feel for PROM STRENGTH: RUE shoulder flexion 2+/5, bicep 2/5, tricep 2/5, block mechanic is weak and symmetrical LUE modified testing shoulder/elbow pt is 2/5 throughout block mechanic is weak and symmetrical BALANCE: Static sitting Normal Dynamic Sitting Normal Static Standing Good Dynamic Standing Fair-Good as pts (L) LE hurts due to wound. Dressing- Sitting on side of bed pt requires mod (A) for don and doffing hospital gown. This is due to lack of functional ROM of (B) UE which is pts baseline level of function. He is max (A) for don and doffing (B) socks. Bathing- Sitting on side of the bed with min vc pt was able to (I) wash his face and asks for (A) for (R) side due to limited AROM of (L) UE. He was able to was his abdomen with light pressure. OT provided min (A) to clean the area thoroughly. He required max (A) (B) UE and underarms, mod (A) carson area. Pt is able to reach this area but is not able to clean with good technique. He is max (A) below (B) knees. And is (I) with (B) thighs. He requires max (A) for washing his back. In supine position washing his hair was max (A). Eating: Sitting in bed with max (A) opening containers, Pt was (I) for hand to mouth facilitation during eating routine. Pt was able to perform this and required max (A) for cutting food and moving food in reachable placement. During eating routine pt was able to grab a cup with his (R) UE and place it onto his tray (I) with good technique. OT does recommend that pt use modified eating utensils including utensils with red foam. Pt was able to grasp utensil in (L) hand with thumb, index and MF. Pt does require max (A) for fine motor activities of digits. This is patients baseline level of function. SPECIAL TESTS: Daily Activity Limitations Standardized Measure [facility] AM PAC ?6 clicks? Daily Activity Inpatient Short Form: Raw Score 19, CMS score 42.80% INFORMED CONSENT/EDUCATION: Pt instructed in purpose of OT Consult and plan of care. ASSESSMENT: Patient is a 59-year-old male referred to occupational therapy services for respiratory distress, acute adrenal insufficiency, acute diastolic heart failure, (L) leg wound, complicated UTI, DM, A-fib, chronic cholecystitis, toxic metabolic encephalopathy, CKD, HTN, hypothyroidism, chronic bipolar disorder, anemia. Patient presents with clinical signs and symptoms consistent with this dx and deconditioning, as demonstrated by the following impairment level findings: Decreased (B) UE ROM, Decreased (B) UE strengthening, decreased functional activity tolerance, decreased (I) in ADLs, Limited gross and fine motor control of (L) UE, pain in (B) LE, decreased functional mobility required for performance of ADLs, Wound on (L) LE. Impairments are contributing to the following functional limitations: decreased functional mobility, decreased gross and fine motor control of (B) UE, decreased functional activity tolerance. OT recommends that pt return to [facility] when medically cleared per MD. Pt was able to perform his ADLs significantly better during todays session that any prior OT consult performed per this OT and patient. Pt has AROM to (B) LE which remains limited but improved. He was able to perform his bathing routine with min (A) as pt has decreased strength in (B) UE/LE. He was an active participate in todays session and receptive to education and training provided to pt during OT consult. AMPAC score 19 Patient is assessed as a Moderate 11260 complexity based on the following: History: See Above Examination: See Above Presentation: Evolving Decision Making: AMPAC score 19 GOALS N/A as pt was seen for OT consult only. Plan is for pt to return to [facility] this afternoon. PLAN OF CARE/TREATMENT PLAN: 1x/day, 5 days/ week x 1week Initiate Occupational Therapy Services for bathing, dressing, grooming, toileting, eating, transfer training. DISCHARGE RECOMMENDATIONS Return to [facility] when medically cleared per MD. Eating Routine- OT recommends built up handles for utensils with red foam as pt has decreased gross and fine motor control of (B) UE and digits. TREATMENT TIME/MINUTES/CODES 28301, [id number], 60 minutes (08:40) Suzanne Javier OTR/[facility]
--- NOTE | 2019-05-20 11:04 | CMDISCH_ITS ---
- If Service Date Differs Date of service: 05/20/19 Time of Service: 11:04 LACE Index Scoring Tool - Questions: Length of Stay (in days): 3 Acuity (Admit via E.D.?): Yes Comorbidities: Diabetes w/o Complication, Congestive Heart Failure, Chronic Pulmonary Disease, Liver or Renal Disease E.D. Visits: 13 - Answers: Total Score: 15 Risk of Readmission: High Risk Care Management Discharge Reason for Hospitalization: Resp failure, CHF Discharge Plan: Brendan is being discharged back to the [facility] today. CM coordianted transport through [facility]. Brendan states that he feels ready to return to the [facility] today. CM contacted the [facility] and coordianted time for discharge. Patient/Family Education Needs: Discharge education, limitations and follow up plan of care including discharge instructions and follow plan to the [facility]. Services Needed at Discharge: [facility], Transportation
[2019-05-20] MEDS: Ferrous Sulfate 325 MG TAB PO (12:07)
--- NOTE | 2019-05-20 13:44 | W.PM.DS.N ---
Date of service: 05/20/19 Time of Service: 13:44 DS: Diagnosis Discharge Diagnosis (1) Acute hypercapnic respiratory failure due to obstructive sleep apnea: Status: Resolved Asessment and Plan: patient presented to the emergency room from [facility] w/ acute dyspnea, malaise and obtunded. He was found to be in acute hypercapneic respiratory failure and acute on chronic CHF. He required BIPAP and diuretics but responded well to both with improvement in his mental alertness. Patient has JESSICA and needs to wear his BIPAP at all times while he sleeps whether napping or sleeping overnight. (2) Acute on chronic diastolic heart failure: Status: Acute Asessment and Plan: although initially it was unclear as to whether or not he had a pneumonia his dyspnea and oxygenation requirements quickly improved w/ diuresis. His furosemide dose was increased to 40 mg bid and his HCTZ was discontinued. Repeat echo was not done as this had been done 03/17/2019 (mod. conc. LVH LVEF 60%, normal RV size and systolic fxn, moderate PHTN). It is felt that his heart failure is secondary to his PHTN and d/t JESSICA. (3) Acute adrenal insufficiency: Status: Chronic Asessment and Plan: patient was placed on stress dose iv hydrocortisone while hospitalized. This should be tapered over the next week and he should then resume his usual dose of prednisone. (4) Leg wound, left: Status: Chronic Asessment and Plan: Please follow [facility] wound care nurses instructions on care of his lef leg wound. (5) Diabetes mellitus: Status: Chronic Asessment and Plan: further diabetic medication adjustment as per [facility] medical staff director (6) Atrial flutter, paroxysmal: Status: Chronic Asessment and Plan: apixaban dose reduced to reflect his CKD. (7) CKD (chronic kidney disease): Status: Chronic (8) Hypertension: Status: Chronic Asessment and Plan: most of his bp meds were held initially on admission d/t low BP, however, his metoprolol was continued but with resolution of his borderline hypotension (after given stress dose corticosteroids), his BP became a problems and his bp meds were introduces albeit at lower doses. He is discharged on his home dose of lopressor and norvasc but his clonidine dose was lowered. (9) Hypothyroidism: Status: Chronic Asessment and Plan: no change in his levothyroxine dose (10) Chronic bipolar disorder: Status: Chronic Asessment and Plan: no change to his home meds (11) Anemia: Status: Chronic Asessment and Plan: stable anemia of CKD. No evidence for overt GI bleeding during his hospital stay. Hb stable at 8 gm. (12) DVT prophylaxis: Status: Resolved (13) Discharge planning issues: Status: Resolved Asessment and Plan: discharged back to [facility] for follow up Discharge Plan Disposition Patient Disposition: SNF (LEVEL 1) [facility] Condition: Improving Discharge Details Chief Complaint: RespSymp Reason For Visit: RESPIRATORY FAILURE, CHF, hypercapneic RF Admit Date/Time: 05/17/19 14:10 Admit Provider: Pablo Cobb Attending Provider: Pablo Cobb Primary Care Provider: Lou Maldonado ED Provider: Ashanti Hayes Home Meds and New Rx's Prescriptions: New hydrocortisone 10 mg tablet See Rx Instructions .ROUTE .COMPLEX Qty: 100 RF: 0 Continued cyanocobalamin (vitamin B-12) 1,000 mcg Tablet 1,000 mcg PO DAILY RF: 0 ferrous sulfate 325 mg (65 mg iron) Tablet 325 mg PO BID Qty: 0 RF: 0 ascorbic acid (vitamin C) [Vitamin C] 250 mg Tablet 1 tab PO BID RF: 0 Centrum Complete 18-400 mg-mcg Tablet 1 tab PO DAILY RF: 0 acidophilus-pectin, citrus 25 million cell -100 mg Tablet 1 cap PO TID Qty: 0 RF: 0 insulin aspart U-100 [Novolog Flexpen U-100 Insulin] 100 unit/mL Insulin Pen See Rx Instructions .ROUTE .COMPLEX Qty: 15 RF: 0 pantoprazole 40 mg Tablet,Delayed Release (Dr/Ec) 40 mg PO DAILY Qty: 60 RF: 0 melatonin 3 mg Tablet Extended Release 6 mg PO HS Qty: 30 RF: 0 sodium bicarbonate 650 mg Tablet 650 mg PO TID Qty: 90 RF: 0 calcium carbonate-vitamin D3 [Calcium 500 + D] 500 mg(1,250mg) -400 unit Tablet 1 tab PO BID RF: 0 acetaminophen [Tylenol] 325 mg tablet 1,000 mg PO TID RF: 0 gabapentin 100 mg capsule 300 mg PO TID RF: 0 terazosin 2 mg Capsule 4 mg PO BID Qty: 0 RF: 0 magnesium chloride [Mag 64] 64 mg Tablet,Delayed Release (Dr/Ec) 64 mg PO BID Qty: 0 RF: 0 venlafaxine [Effexor XR] 37.5 mg Capsule,Extended Release 24hr 112.5 mg PO DAILY RF: 0 Zyrtec 10 mg Capsule 10 mg PO DAILY RF: 0 amlodipine 5 mg tablet 10 mg PO DAILY RF: 0 levothyroxine 25 mcg tablet 12.5 mcg PO DAILY@0600 RF: 0 Lantus Solostar U-100 Insulin 100 unit/mL (3 mL) insulin pen See Rx Instructions .ROUTE .COMPLEX RF: 0 risperidone [Risperdal] 2 mg Tablet 2 mg PO HS Qty: 0 RF: 0 insulin aspart U-100 100 unit/mL (3 mL) insulin pen 10 unit SC AC Qty: 15 RF: 0 metoprolol tartrate 25 mg Tablet 25 mg PO BID RF: 0 Changed furosemide [Lasix] 40 mg Tablet 40 mg PO BID Qty: 0 RF: 0 clonidine HCl [Catapres] 0.1 mg tablet 0.1 mg PO TID Qty: 0 RF: 0 Eliquis 5 mg Tablet 2.5 mg PO BID Qty: 60 RF: 0 Discontinued prednisone 20 mg Tablet See Rx Instructions .ROUTE .COMPLEX Qty: 30 RF: 0 hydrochlorothiazide 25 mg Tablet 25 mg PO DAILY RF: 0 Discharge Instructions Instructions: Heart Failure (DC) Additional Instructions: limit fluids to 2 liters per day; low sodium diet Stand Alone Forms: Nursing Discharge Form Activity:: Activity as Tolerated Equipment/Supplies:: No Equipment Needed Diet:: Low Sodium Discharge Orders Discharge Orders: Discharge Order (Routine); Ordered 05/20/19 Ordered By: Manuel Fisher Other Ambulatory Orders: Basic Metabolic Panel (Routine) Timeframe: 1 Week Location: None Selected Ordered By: Manuel Fisher Complete Blood Count w/Diff (Routine) Timeframe: 1 Week Location: None Selected Ordered By: Manuel Fisher NT-proBNP (Routine) Timeframe: 1 Week Location: None Selected Ordered By: Manuel Fisher Discharge Data Discharge Date/Time-TO BE ENTERED AT DEPARTURE: 05/20/19 14:15 DS: Summary Status at Discharge Functional status at discharge: bed bound Overall status at discharge: patient is back to baseline Mental Status: mental status grossly normal Speech and Movement: speech and movement normal Mood: congruent mood Affect: normal affect Exam Narrative Exam Narrative: He is alert and oriented. No distress Lungs have bilateral basilar rales; upper barnard are clear Heart is regular, harsh systolic murmur over apex; no thrill or heave Abdomen is soft, obese, nontender left leg wound is covered w/ dressing which I did not take down today. I examined this wound yesterday and found no purulence. The wound care nurse has reported her finding to me and I have cosigned her dressing orders. Psych Mental Status: mental status grossly normal Speech and Movement: speech and movement normal Mood: congruent mood Affect: normal affect DS: Data Vitals/I&O Vitals and I&O: Vital Signs Temperature 36.7 C 05/20/19 07:30 Temperature Source Tympanic 05/20/19 07:30 Pulse 58 L 05/20/19 07:30 Pulse Rhythm Irregular 05/20/19 00:01 Pulse 55 L 05/19/19 00:00 Respiratory Rate 18 05/20/19 07:30 Respiratory Effort Non-Labored 05/20/19 00:01 Respiratory Depth Shallow 05/20/19 00:01 Respiratory Pattern Tachypnea 05/20/19 00:01 Blood Pressure 151/71 H 05/20/19 07:30 Blood Pressure Mean 101 05/19/19 08:43 Blood Pressure Position Sitting 05/19/19 08:43 Pulse Oximetry 99 05/20/19 07:30 Oxygen Delivery Method Nasal Cannula 05/20/19 07:30 Oxygen Flow Rate 3 05/20/19 08:40 Fraction of Inspired Oxygen (FIO2) 30 05/19/19 02:00 Pain Level 0 05/20/19 07:30 Comment 05/19/19 19:12 Intake & Output 05/19/19 05/20/19 05/20/19 23:59 11:59 23:59 Intake Total 1230 / 1730 480 / 480 Output Total 2450 / 4150 2275 / 2825 550 / 2825 Balance -1220 / -2420 -1795 / -2345 -550 / -2345 Weight 108.5 kg Intake: IV Oral 1220 / 1720 480 / 480 Output: Urine 1550 / 3100 1725 / 2025 300 / 2025 Stool 900 / 1050 550 / 800 250 / 800 Other: Urine Color Yellow Yellow Yellow Urine Appearance Sediment Clear Clear Mucous Threads Comment patent and draining on admission Data Completed and Pending Labs on day of discharge: Labs from last 24 hours 05/20/19 05/20/19 05/19/19 06:39 06:39 18:25 WBC 6.72 RBC 3.62 L Hgb 7.9 L Hct 29.5 L MCV 81.5 MCH 21.8 L MCHC 26.8 L RDW 17.4 H Plt Count 203 MPV 10.3 Immature Gran % 0.9 Neutrophils % 83.7 Lymphocytes % 8.9 Monocytes % 6.3 Eosinophils % 0.1 Basophils % 0.1 Absolute Neutrophils 5.62 Absolute Lymphocytes 0.60 L Absolute Monocytes 0.42 Absolute Eosinophils 0.01 Absolute Basophils 0.01 RBC Morphology See below Hypochromasia 2+ Poikilocytosis 2+ Basophilic Stippling Present Anisocytosis 2+ Microcytosis 1+ Sodium 144 144 Potassium 3.8 3.9 D Chloride 101 100 Carbon Dioxide 41.9 H 41.5 H Anion Gap 1.1 L 2.5 L BUN 68 H 65 H D Creatinine 1.96 H 2.22 H Estimated GFR/1.73 m2 35.06 30.37 Glucose 293 H 277 H Calcium 9.0 8.8 NT-Pro-B Natriuret Pep 2031 H Preliminary micro results at discharge 05/17/19 16:00 Blood Culture - Preliminary Blood NO GROWTH 48 HOURS 05/17/19 13:05 Blood Culture - Preliminary Blood NO GROWTH 48 HOURS PFSH Medical History Acromegaly (Chronic) Acute on chronic kidney failure (Resolved) Adrenal insufficiency (Chronic) Ambulatory dysfunction (Chronic) Anemia (Chronic) Atrial flutter, paroxysmal (Chronic) Back pain (Chronic 06/21/13) CAD (coronary artery disease) (Chronic) Cardiopulmonary arrest with successful resuscitation (Resolved) Cholelithiasis (Chronic) Chronic anxiety (Chronic) Chronic bipolar disorder (Chronic) a. With history of psychosis. Chronic cholecystitis (Chronic) Chronic insomnia (Chronic) Chronic pain (Chronic) On both Methadone and Fentanyl as well as Ultram and Naproxen. CKD (chronic kidney disease) (Chronic) Complicated UTI (urinary tract infection) (Resolved) Diabetes mellitus (Chronic) Diabetic foot ulcer (Chronic) Diabetic ulcer of toe associated with diabetes mellitus due to underlying condition, with bone involvement without evidence of necrosis (Inactive) 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 (Resolved) Dyslipidemia (Chronic) Elevated troponin I level (Resolved) Endocarditis due to Staphylococcus (Resolved) Heme positive stool (Resolved) Hemorrhagic cystitis (Chronic) Hyperkalemia (Acute) Hypertension (Chronic) Hypomagnesemia (Chronic) Hypothyroidism (Chronic) Impaired mobility and ADLs (Chronic) Inability to get out of bed (Chronic 06/21/13) Lactic acidosis (Resolved) MRSA bacteremia (Resolved) Obesity (Chronic) a. Obesity though he has had significant weight loss since last seen. Osteoarthritis of both knees (Chronic) Severe. a. [id number] bilateral knees. 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 2 diabetes mellitus (Resolved) Palliative care encounter (Chronic) DObbertin Pedal edema (Chronic) Poor self care (Chronic 06/21/13) Poorly controlled type 2 diabetes mellitus with circulatory disorder (Chronic) Presence of IVC filter (Acute) Pulmonary hypertension (Chronic) Rheumatoid arthritis (Chronic) Sepsis (Resolved) Septic arthritis of elbow, right (Inactive) Toxic metabolic encephalopathy (Resolved) Toxic metabolic encephalopathy (Resolved) Ulcerative colitis (Chronic) UTI (urinary tract infection) (Resolved) UTI (urinary tract infection) due to Enterococcus (Resolved) Surgical History Arthroplasty of knee (Resolved 03/18/12) irrigation and lavage right Fracture, Open Treatment (Resolved) [place] [place] DISTAL HUMERUS FRACTURE History of insertion of T-tube into biliary tract (Chronic) S/P colectomy (Chronic) Social History Smoking/Tobacco Use Status: Former Tobacco Use Alcohol Intake: former Drug use: Rarely Substance use type: marijuana Housing: care home Do you feel safe at home: Yes Do you feel safe in your relationship?: Yes
--- NOTE | 2019-05-20 14:35 | CHAPLAIN ---
I visited with Brendan just before he left. He had spent a couple of days in our [facility] and said he didn't like it because there was no television, only a radio coming through speakers in the ceiling and it wasn't loud enough. Brendan has spent time at [facility] recently and at [facility] not long ago. Brendan is well known to many of us through multiple admissions.
== END 2019-05-20 14:15 | disposition skilled nursing facility (03) | DRG 189 ==
LOC: ER 14:42 → RICU 17:12 → MS 05-24 11:08
PROVIDERS: Admitting Provider Family Medicine; Emergency Provider Student in an Organized Health Care Education/Training Program; PCP Family Medicine; Visit Provider Internal Medicine
DX: J96.02 Acute respiratory failure with hypercapnia (principal); I50.33 Acute on chronic diastolic (congestive) heart failure; I13.0 Hypertensive heart and chronic kidney disease with heart failure and stage 1 through stage 4 chronic kidney disease, or unspecified chronic kidney disease; E27.49 Other adrenocortical insufficiency; I48.92 Unspecified atrial flutter; I83.229 Varicose veins of left lower extremity with both ulcer of unspecified site and inflammation; L97.921 Non-pressure chronic ulcer of unspecified part of left lower leg limited to breakdown of skin; N18.4 Chronic kidney disease, stage 4 (severe); J96.01 Acute respiratory failure with hypoxia; E11.22 Type 2 diabetes mellitus with diabetic chronic kidney disease; I27.23 Pulmonary hypertension due to lung diseases and hypoxia; G47.33 Obstructive sleep apnea (adult) (pediatric); Z79.52 Long term (current) use of systemic steroids; Z79.01 Long term (current) use of anticoagulants; E03.9 Hypothyroidism, unspecified; F31.9 Bipolar disorder, unspecified; D63.1 Anemia in chronic kidney disease; Z22.322 Carrier or suspected carrier of Methicillin resistant Staphylococcus aureus; Z71.3 Dietary counseling and surveillance; Z93.3 Colostomy status
CPT/HCPCS: 36415; 36680; 51702; 80048; 80053; 82805; 87040; 87081; 87449; 93005; 96365; 96366; 96375; 97166; 99223; 99233; 99239; 99291; U0003; 36600; 71045; 81003; 81015; 83036; 83605; 83735; 83880; 84484; 85025; 87086; 93010; 94660; 97530; J0696; J1720; J1940; J3490

== ENCOUNTER 2019-05-25 09:31 | Outpatient (REF) | payer MEDICARE, MEDICAID, SELFPAY ==
[2019-05-25 10:14] LABS: Abs Immature Grans 0.04 k/cumm (0.0-0.09); Absolute Basophil Count 0.01 k/cumm (0.0-0.2); Absolute Eosinophil Count 0.01 k/cumm (0.0-0.7); Absolute Lymphocyte Count 0.54 k/cumm (1.2-3.4); Absolute Monocyte Count 0.27 k/cumm (0.11-0.7); Absolute Neutrophil Count 7.51 k/cumm (1.2-6.7); Basophils % 0.1; Eosinophils % 0.1; HCT 36.1 % (40.0-50.0); HGB 9.2 g/dL (13.5-17.5); Immature Grans % 0.5 %; Lymphocytes % 6.4; Mean Corp. HGB Concentration 25.5 g/dL (32.0-36.0); Mean Corpuscular Hemoglobin 21.6 pg (27.0-33.0); Mean Corpuscular Volume 84.7 fL (80-95); Mean Platelet Volume 11.4 fL (8.0-11.0); Monocytes % 3.2; Neutrophils % 89.7; Platelet Count 294 x1000/uL (130-400); RBC 4.26 m/cumm (4.50-6.00); RBC Distribution Width 18.6 % (11.8-14.1); White Blood Cell Count 8.38 k/cumm (4.4-10.8)
[2019-05-25 10:37] LABS: Anisocytosis 2+; Diff Comment RBC Morph Reviewed; Hypochromasia 2+; Microcytosis 1+; Polychromasia Present
[2019-05-25 10:39] LABS: Poikilocytes 2+
[2019-05-25 10:50] LABS: BUN 51 mg/dL (7-18); CREATININE 1.77 mg/dL (0.70-1.30); Calcium 9.2 mg/dL (8.5-10.1); Chloride 103 mmol/L (98-107); Estimated GFR 39.44 (mL/min/1.73m2); Glucose 370 mg/dL (74-106); NT-proBNP 898 pg/mL (<300); Potassium 3.7 mmol/L (3.5-5.1); Sodium 151 mmol/L (136-145)
[2019-05-25 11:04] LABS: Anion Gap 2.99999 mmol/L (3-11); CO2 > 45.0 mmol/L (21.0-32.0)
== END 2019-05-25 09:51 ==
LOC: LBN 09:31
PROVIDERS: PCP Family Medicine; Visit Provider Family Medicine
DX: I50.9 Heart failure, unspecified (principal)
CPT/HCPCS: 80048; 83880; 85025

== ENCOUNTER 2019-06-02 10:37 | Inpatient (IN) | payer MEDICARE, MEDICAID, SELFPAY ==
[2019-06-02] VITALS (52 sets, daily range): BP systolic 109–176; BP diastolic 58–153; PULSE 54–131; RESP 13–33; TEMP 36.6–37.9; O2SAT 89–100
--- NOTE | 2019-06-02 10:45 | DI.RAD_ITS ---
EXAM: XR PORTABLE CHEST AP CLINICAL HISTORY: Shortness of breath, fluid retention TECHNIQUE: COMPARISON: XR PORTABLE CHEST AP from 05/20/2019 FINDINGS: The heart is enlarged and there are mild diffuse pulmonary interstitial radiodensities. Elevation of the diaphragm noted on the left. Findings are essentially unchanged comparison with prior study of May 19. Findings remain consistent with CHF. IMPRESSION: Presumed CHF, no change from May 19
--- NOTE | 2019-06-02 10:46 | W.ED.GENAD ---
Discharge Plan Disposition Patient Disposition: [facility] INPATIENT Condition: Stable Discharge Details Chief Complaint: SOB Clinical Impression: CHF (congestive heart failure), Acute respiratory failure with hypoxia and hypercarbia Primary Care Provider: Lou Maldonado ED Provider: Calderon Del Cid Home Meds and New Rx's Prescriptions: No Action cyanocobalamin (vitamin B-12) 1,000 mcg Tablet 1,000 mcg PO DAILY RF: 0 ferrous sulfate 325 mg (65 mg iron) Tablet 325 mg PO BID Qty: 0 RF: 0 ascorbic acid (vitamin C) [Vitamin C] 250 mg Tablet 1 tab PO BID RF: 0 Centrum Complete 18-400 mg-mcg Tablet 1 tab PO DAILY RF: 0 acidophilus-pectin, citrus 25 million cell -100 mg Tablet 1 cap PO TID Qty: 0 RF: 0 insulin aspart U-100 [Novolog Flexpen U-100 Insulin] 100 unit/mL Insulin Pen See Rx Instructions .ROUTE .COMPLEX Qty: 15 RF: 0 pantoprazole 40 mg Tablet,Delayed Release (Dr/Ec) 40 mg PO DAILY Qty: 60 RF: 0 melatonin 3 mg Tablet Extended Release 6 mg PO HS Qty: 30 RF: 0 sodium bicarbonate 650 mg Tablet 650 mg PO TID Qty: 90 RF: 0 calcium carbonate-vitamin D3 [Calcium 500 + D] 500 mg(1,250mg) -400 unit Tablet 1 tab PO BID RF: 0 acetaminophen [Tylenol] 325 mg tablet 1,000 mg PO TID RF: 0 gabapentin 100 mg capsule 300 mg PO TID RF: 0 risperidone [Risperdal] 2 mg tablet 2 mg PO DAILY AM RF: 0 terazosin 2 mg Capsule 4 mg PO BID Qty: 0 RF: 0 magnesium chloride [Mag 64] 64 mg Tablet,Delayed Release (Dr/Ec) 64 mg PO BID Qty: 0 RF: 0 venlafaxine [Effexor XR] 37.5 mg Capsule,Extended Release 24hr 112.5 mg PO DAILY RF: 0 Zyrtec 10 mg Capsule 10 mg PO DAILY RF: 0 amlodipine 5 mg tablet 10 mg PO DAILY RF: 0 levothyroxine 25 mcg tablet 12.5 mcg PO DAILY@0600 RF: 0 Lantus Solostar U-100 Insulin 100 unit/mL (3 mL) insulin pen See Rx Instructions .ROUTE .COMPLEX RF: 0 insulin aspart U-100 100 unit/mL (3 mL) insulin pen 10 unit SC AC Qty: 15 RF: 0 metoprolol tartrate 25 mg Tablet 25 mg PO BID RF: 0 hydrocortisone 10 mg tablet See Rx Instructions .ROUTE .COMPLEX Qty: 100 RF: 0 furosemide [Lasix] 40 mg Tablet 40 mg PO BID Qty: 0 RF: 0 clonidine HCl [Catapres] 0.1 mg tablet 0.1 mg PO TID Qty: 0 RF: 0 Eliquis 5 mg Tablet 2.5 mg PO BID Qty: 60 RF: 0 Medical Decision Making 59-year-old male presents from the [facility] where he has developed progressive tachypnea and was noted to have hypoxia this morning on room air. He has had increasing peripheral edema despite escalating doses of Lasix. He arrives via EMS. Per report he had good response to 1.5 L of oxygen administration. He arrives with a temp of 36.8, pulse 70, respirations 29, blood pressure 143/69 and 99% sat on 1.5 L. Review of records reveals negative dum[place] virus testing on May 16. Differential diagnosis today includes acute on chronic congestive heart failure, chronic renal insufficiency, electrolyte derangements, pneumonitis. Patient referred for chest x-ray, EKG, laboratory testing. He was initially put on CPAP approximately PEEP of 5. Subsequently, with knowledge of the previously negative coronavirus testing, felt that the patient's clinical scenario would best benefit from BiPAP which he was placed upon. Additionally, patient given Solu-Medrol for presumptive COPD exacerbation. Chest x-ray: Diffuse pulmonary interstitial radiodensities consistent with CHF. See formal report. Laboratories with white blood cell count 12, hematocrit 38, platelets 261. INR is 1.1. Sodium 144, test 3.7, chloride 102, bicarb 43, BUN 90, creatinine 2.8. BNP of 1470. Troponin is negative. Patient's renal function has worsened. Today's presentation is most consistent with acute on chronic congestive heart failure with COPD exacerbation and hypercarbia. Discussed with Dr. Cobb and we will admit to the respiratory care unit to continue to manage his dyspnea as well as to rule out again for coronavirus. ECG Data Attestation: I personally reviewed and interpreted this ECG (s) as follows: Interpretation: Normal sinus rhythm, rate of 71, the QRS is narrow, there is nonspecific T wave changes in lead I and aVL. When compared to EKG from May 16, there is no significant changes HPI General Mode of arrival: EMS. Date/Time Provider Initiated Documentation: 06/02/19 11:06. Limitations to Documentation: altered mental status and other (Poor historian, minimally contributory). Information obtained by: EMS. History of Present Illness 59 year old M presents to the emergency department with the chief complaint of Shortness of breath and fluid retention, described as moderate and similar to prior episodes, Quality is described as constant, and is localized to the chest. Patient reports no radiation. Patient started experiencing this day(s) and it has been constant. No relieving factors improve symptom(s), No exacerbating factors reported . Patient notes other (Lower extremity edema). Patient did receive the following treatments prior to arrival, other (Lasix increased) Related Data Home Medications Medication Instructions Recorded Confirmed cyanocobalamin (vitamin B-12) 1,000 mcg PO DAILY 12/23/17 05/17/19 ferrous sulfate 325 mg PO BID #0 tab 12/31/17 05/17/19 magnesium chloride [Mag 64] 64 mg PO BID #0 tab 02/10/18 05/17/19 terazosin 4 mg PO BID #0 cap 02/10/18 05/17/19 Centrum Complete 1 tab PO DAILY 03/01/18 05/17/19 ascorbic acid (vitamin C) [Vitamin 1 tab PO BID 03/01/18 05/17/19 C] acidophilus-pectin, citrus 1 cap PO TID #0 tab 03/24/18 05/17/19 insulin aspart U-100 [Novolog See Rx Instructions .ROUTE 06/19/18 05/17/19 Flexpen U-100 Insulin] .COMPLEX #15 ml melatonin 6 mg PO HS #30 tab 06/19/18 05/01/19 pantoprazole 40 mg PO DAILY #60 tab 06/19/18 05/17/19 sodium bicarbonate 650 mg PO TID #90 tab 06/19/18 05/01/19 calcium carbonate-vitamin D3 1 tab PO BID 07/09/18 05/01/19 [Calcium 500 + D] venlafaxine [Effexor XR] 112.5 mg PO DAILY 10/23/18 05/17/19 acetaminophen [Tylenol] 1,000 mg PO TID 01/08/19 05/17/19 gabapentin 300 mg PO TID 01/08/19 05/17/19 Zyrtec 10 mg PO DAILY 02/23/19 05/01/19 amlodipine 10 mg PO DAILY 02/26/19 05/17/19 levothyroxine 12.5 mcg PO DAILY@0600 02/26/19 05/17/19 Lantus Solostar U-100 Insulin See Rx Instructions .ROUTE .COMPLEX 03/15/19 05/17/19 insulin aspart U-100 10 unit SC AC #15 ml 03/19/19 05/01/19 metoprolol tartrate 25 mg PO BID 05/01/19 05/01/19 Eliquis 2.5 mg PO BID #60 tab 05/20/19 05/17/19 clonidine HCl [Catapres] 0.1 mg PO TID #0 tab 05/20/19 05/17/19 furosemide [Lasix] 40 mg PO BID #0 tab 05/20/19 05/17/19 hydrocortisone See Rx Instructions .ROUTE 05/20/19 .COMPLEX #100 tab risperidone [Risperdal] 2 mg PO DAILY AM 06/02/19 Previous Rx's Medication Instructions Recorded ferrous sulfate 325 mg PO BID #0 tab 12/31/17 magnesium chloride [Mag 64] 64 mg PO BID #0 tab 02/10/18 terazosin 4 mg PO BID #0 cap 02/10/18 acidophilus-pectin, citrus 1 cap PO TID #0 tab 03/24/18 insulin aspart U-100 [Novolog See Rx Instructions .ROUTE 06/19/18 Flexpen U-100 Insulin] .COMPLEX #15 ml melatonin 6 mg PO HS #30 tab 06/19/18 pantoprazole 40 mg PO DAILY #60 tab 06/19/18 sodium bicarbonate 650 mg PO TID #90 tab 06/19/18 insulin aspart U-100 10 unit SC AC #15 ml 03/19/19 Eliquis 2.5 mg PO BID #60 tab 05/20/19 clonidine HCl [Catapres] 0.1 mg PO TID #0 tab 05/20/19 furosemide [Lasix] 40 mg PO BID #0 tab 05/20/19 hydrocortisone See Rx Instructions .ROUTE 05/20/19 .COMPLEX #100 tab Allergies Allergy/AdvReac Type Severity Reaction Status Date / Time lisinopril Allergy Unverified 06/02/19 10:44 General Stated Complaint: SOB YVES: 2 Review of Systems Narrative: Patient not a willing participant in history. He has a healing left lower extremity anterior ulceration of the skin. He has had increasing administration of Lasix, he has had report of hypoxia this morning. [facility] Medical History Acromegaly (Chronic) Acute on chronic kidney failure (Resolved) Adrenal insufficiency (Chronic) Ambulatory dysfunction (Chronic) Anemia (Chronic) Atrial flutter, paroxysmal (Chronic) Back pain (Chronic 06/21/13) CAD (coronary artery disease) (Chronic) Cardiopulmonary arrest with successful resuscitation (Resolved) Cholelithiasis (Chronic) Chronic anxiety (Chronic) Chronic bipolar disorder (Chronic) a. With history of psychosis. Chronic cholecystitis (Chronic) Chronic insomnia (Chronic) Chronic pain (Chronic) On both Methadone and Fentanyl as well as Ultram and Naproxen. CKD (chronic kidney disease) (Chronic) Complicated UTI (urinary tract infection) (Resolved) Diabetes mellitus (Chronic) Diabetic foot ulcer (Chronic) Diabetic ulcer of toe associated with diabetes mellitus due to underlying condition, with bone involvement without evidence of necrosis (Inactive) 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 (Resolved) Dyslipidemia (Chronic) Elevated troponin I level (Resolved) Endocarditis due to Staphylococcus (Resolved) Heme positive stool (Resolved) Hemorrhagic cystitis (Chronic) Hyperkalemia (Acute) Hypertension (Chronic) Hypomagnesemia (Chronic) Hypothyroidism (Chronic) Impaired mobility and ADLs (Chronic) Inability to get out of bed (Chronic 06/21/13) Lactic acidosis (Resolved) MRSA bacteremia (Resolved) Obesity (Chronic) a. Obesity though he has had significant weight loss since last seen. Osteoarthritis of both knees (Chronic) Severe. a. [id number] bilateral knees. 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 2 diabetes mellitus (Resolved) Palliative care encounter (Chronic) DObbertin Pedal edema (Chronic) Poor self care (Chronic 06/21/13) Poorly controlled type 2 diabetes mellitus with circulatory disorder (Chronic) Presence of IVC filter (Acute) Pulmonary hypertension (Chronic) Rheumatoid arthritis (Chronic) Sepsis (Resolved) Septic arthritis of elbow, right (Inactive) Toxic metabolic encephalopathy (Resolved) Toxic metabolic encephalopathy (Resolved) Ulcerative colitis (Chronic) UTI (urinary tract infection) (Resolved) UTI (urinary tract infection) due to Enterococcus (Resolved) Surgical History Arthroplasty of knee (Resolved 03/18/12) irrigation and lavage right Fracture, Open Treatment (Resolved) 06/06/17[facility] [place] S/P ORIF RIGHT DISTAL HUMERUS FRACTURE History of insertion of T-tube into biliary tract (Chronic) S/P colectomy (Chronic) Social History Smoking/Tobacco Use Status: Former Tobacco Use Alcohol Intake: former Drug use: Rarely Substance use type: marijuana Housing: [facility] Do you feel safe at home: Yes Do you feel safe in your relationship?: Yes Exam Narrative Exam Narrative: GEN: awake, alert, interactive. Poorly groomed HEAD: Normocephalic, atraumatic ENT: Mucous membranes moist, oropharynx unremarkable, External ear exam unremarkable EYES: PERRL, EOMI NECK: Full ROM, no ETELVINA, no menigismus CHEST/RESP: Nontender, distant, question rales at bases CARDIOVASCULAR: Distant, RRR, no murmur, rub ambrose. 2+ Rad pulse bilateral ABDOMEN: Soft, nontender, no mass. +Bowel sounds EXT: Full ROM, left anterior tibial ulceration that is dressed, 2+ edema bilaterally, chronic venous stasis changes. Neuro: Grossly normal neurologic exam. Psych: Speech fluent, thoughts congruent, affect flat Course Vital Signs Vital signs: Vital Signs Temperature 36.8 C 06/02/19 10:34 Pulse 70 06/02/19 10:34 Respiratory Rate 29 H 06/02/19 10:34 Blood Pressure 143/69 H 06/02/19 10:34 Pulse Oximetry 99 06/02/19 10:34 Temperature 36.8 C 06/02/19 10:34 Temperature Source Skin 06/02/19 10:34 Pulse 70 06/02/19 10:34 Respiratory Rate 29 H 06/02/19 10:34 Blood Pressure 143/69 H 06/02/19 10:34 Pulse Oximetry 99 06/02/19 10:34 Oxygen Delivery Method Nasal Cannula 06/02/19 10:34 Oxygen Flow Rate 1.5 06/02/19 10:34
[2019-06-02 11:06] LABS: Abs Immature Grans 0.05 k/cumm (0.0-0.09); Absolute Basophil Count 0.01 k/cumm (0.0-0.2); Absolute Eosinophil Count 0.21 k/cumm (0.0-0.7); Absolute Lymphocyte Count 0.62 k/cumm (1.2-3.4); Basophils % 0.1; Eosinophils % 1.6; HCT 38.7 % (40.0-50.0); HGB 10.2 g/dL (13.5-17.5); Immature Grans % 0.4 %; Lymphocytes % 4.8; Mean Corp. HGB Concentration 26.4 g/dL (32.0-36.0); Mean Corpuscular Hemoglobin 22.8 pg (27.0-33.0); Mean Corpuscular Volume 86.6 fL (80-95); Mean Platelet Volume 10.4 fL (8.0-11.0); Neutrophils % 86.1; Platelet Count 261 x1000/uL (130-400); RBC 4.47 m/cumm (4.50-6.00); RBC Distribution Width 19.4 % (11.8-14.1); White Blood Cell Count 12.92 k/cumm (4.4-10.8)
[2019-06-02 11:13] LABS: Absolute Neutrophil Count 11.12 k/cumm (1.2-6.7); INR 1.1 (0.9-1.1); Prothrombin Time 10.7 sec (9.3-11.0)
[2019-06-02 11:27] LABS: ALT 19 U/L (16-63); AST 10 U/L (15-37); Albumin 2.9 g/dL (3.4-5.0); Alkaline Phosphatase 109 U/L (46-116); Anion Gap -1.2 mmol/L (3-11); Bilirubin, Total 0.7 mg/dL (0.2-1.0); CO2 43.2 mmol/L (21.0-32.0); CREATININE 2.84 mg/dL (0.70-1.30); Calcium 8.8 mg/dL (8.5-10.1); Chloride 102 mmol/L (98-107); Estimated GFR 22.85 (mL/min/1.73m2); Glucose 241 mg/dL (74-106); Magnesium 2.1 mg/dL (1.8-2.4); NT-proBNP 1470 pg/mL (<300); Potassium 3.7 mmol/L (3.5-5.1); Sodium 144 mmol/L (136-145); Total Protein 6.8 g/dL (6.4-8.2); Troponin I < 0.05 ng/Ml (<0.06)
[2019-06-02 11:28] LABS: Anisocytosis 2+; BUN 90 mg/dL (7-18); Diff Comment RBC Morph Reviewed; Hypochromasia 2+; Microcytosis 1+; Polychromasia Present
[2019-06-02 11:29] LABS: Poikilocytes 2+; Stomatocytes 2+
[2019-06-02] MEDS: Furosemide 100 MG/10 ML VIAL 80 MG IVP ×2 (11:40→19:17)
[2019-06-02] MEDS: Lidocaine 2% Jelly 6 ML SYR (11:45)
[2019-06-02] MEDS: Normal Saline Flush 10 ML SYR IVP (11:57)
[2019-06-02] MEDS: methylPREDNISolone SUCC 125 MG VIAL IVP (12:07)
[2019-06-02 12:40] LABS: HCO3 46 mmol/L (22-28); pH 7.39 (7.35-7.45); pO2 50 mmHg (83-108); sO2 87 % (94-98); tCO2 44 mmol/L (22-29)
[2019-06-02 12:45] LABS: BE > 15.0 mmol/L (-3-3); FIO2 28 %; Site Right Radial
[2019-06-02 12:54] LABS: pCO2 77 mmHg (34-47)
--- NOTE | 2019-06-02 16:33 | W.PM.HP.N ---
Date of service: 06/02/19 Time of Service: 16:33 Assessment and Plan Assessment and plan (1) Acute on chronic diastolic heart failure: Status: Acute Assessment and plan: Patient's primary respiratory issue again appears to be CHF. We will continue to diurese with IV furosemide overnight. As noted he is on sodium bicarbonate chronically due to his chronic respiratory acidosis, this is a significant salt load which will make him drink more and have more CHF. We will look for other options to address his acidosis without the sodium. Given the patient's acute hypoxia and respiratory distress is on top of his chronic respiratory failure, and the requires BiPAP and a good deal of nursing care, he has been admitted to the ICU. We will not repeat echocardiogram as this was done in February of this year and showed a preserved ejection fraction. We are ruling out coronavirus infection as he has been in and [id number] and is presenting with respiratory symptoms. (2) Acute on chronic renal insufficiency: Status: Acute Assessment and plan: Creatinine is slightly above baseline, which appears to be around 2. Think this is related to depleted effective intravascular volume with the CHF. We will diurese him and monitor the renal function. (3) Adrenal insufficiency: Status: Chronic Assessment and plan: Chronic issue. Blood pressures have been stable, and I do not think this is an infection so we will continue just on chronic prednisone dose. (4) Hypertension: Status: Chronic Assessment and plan: Blood pressure is high currently. Continue outpatient medications and follow. Qualifiers: Hypertension type: essential hypertension Qualified Code(s): I10 - Essential (primary) hypertension (5) Hypothyroidism: Status: Chronic Assessment and plan: TSH was normal in March 15, though he may benefit long-term from having a goal closer to 2 given his cardiac disease. No change in dose currently. Qualifiers: Hypothyroidism type: acquired Qualified Code(s): E03.9 - Hypothyroidism, unspecified (6) Leg wound, left: Status: Chronic Assessment and plan: Continue wound care. Qualifiers: Encounter type: subsequent encounter Qualified Code(s): S81.802D - Unspecified open wound, left lower leg, subsequent encounter (7) Chronic bipolar disorder: Status: Chronic Assessment and plan: Continue outpatient psychiatric medications. (8) Atrial flutter, paroxysmal: Status: Chronic Assessment and plan: Anticoagulated on low-dose apixaban given renal dysfunction. This also functions as DVT prophylaxis. His rate is well controlled currently. (9) Diabetes mellitus: Status: Chronic Assessment and plan: A1c was 8.4 in April, which is not unreasonable given his committees. Continue outpatient therapy. 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 use: with terminal make up operator use Diabetes mellitus complication status: with neurologic complications Diabetes mellitus complication detail: with polyneuropathy Qualified Code(s): E11.42 - Type 2 diabetes mellitus with diabetic polyneuropathy; Z79.4 - skilled nursing (current) use of insulin History of Present Illness History of Present Illness Chief Complaint: Fatigue, short of breath Narrative: 59-year-old who is resident at the [facility] with a complex medical history including diabetes on insulin, chronic adrenal insufficiency secondary to chronic prednisone treatment of now inactive rheumatoid arthritis, chronic renal insufficiency, atrial fibrillation/flutter, and history of congestive heart failure with preserved ejection fraction who presents with several days of worsening shortness of breath and generalized malaise. He was noted to have increased respiratory rate at the [facility] this morning and found to be hypoxic in the low 80s oxygen saturation. Over the past several days he has been treated with increasing doses of furosemide for increasing peripheral edema. Per staff at the [facility], he was continued to drink large volumes of fluid despite a fluid restriction. Patient denies pain including chest pain, but gives limited history. He does say he feels like crap. He has a little bit of a cough, but denies productive cough hemoptysis. He denies fevers or chills. Of note, he was admitted May 16 with hypercapnic respiratory failure felt related to poorly treated sleep apnea as well as CHF. Of note, he has a history of refusing care in the custodial, including regular use of his BiPAP. Review of Systems Narrative: Review of systems somewhat limited as the patient only responds intermittently. He does deny fevers or chills. He denies headache, chest pain, or other pain while at rest. He denies runny nose or sore throat. He denies palpitations. Denies nausea or vomiting. Denies diarrhea. Denies blood in the stool other bleeding. He denies pain with urination. [facility] Medical History Acromegaly (Chronic) Acute on chronic kidney failure (Resolved) Adrenal insufficiency (Chronic) Ambulatory dysfunction (Chronic) Anemia (Chronic) Atrial flutter, paroxysmal (Chronic) Back pain (Chronic 06/21/13) CAD (coronary artery disease) (Chronic) Cardiopulmonary arrest with successful resuscitation (Resolved) Cholelithiasis (Chronic) Chronic anxiety (Chronic) Chronic bipolar disorder (Chronic) a. With history of psychosis. Chronic cholecystitis (Chronic) Chronic insomnia (Chronic) Chronic pain (Chronic) On both Methadone and Fentanyl as well as Ultram and Naproxen. CKD (chronic kidney disease) (Chronic) Complicated UTI (urinary tract infection) (Resolved) Diabetes mellitus (Chronic) Diabetic foot ulcer (Chronic) Diabetic ulcer of toe associated with diabetes mellitus due to underlying condition, with bone involvement without evidence of necrosis (Inactive) 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 (Resolved) Dyslipidemia (Chronic) Elevated troponin I level (Resolved) Endocarditis due to Staphylococcus (Resolved) Heme positive stool (Resolved) Hemorrhagic cystitis (Chronic) Hyperkalemia (Acute) Hypertension (Chronic) Hypomagnesemia (Chronic) Hypothyroidism (Chronic) Impaired mobility and ADLs (Chronic) Inability to get out of bed (Chronic 06/21/13) Lactic acidosis (Resolved) MRSA bacteremia (Resolved) Obesity (Chronic) a. Obesity though he has had significant weight loss since last seen. Osteoarthritis of both knees (Chronic) Severe. a. [id number] bilateral knees. 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 2 diabetes mellitus (Resolved) Palliative care encounter (Chronic) DObbertin Pedal edema (Chronic) Poor self care (Chronic 06/21/13) Poorly controlled type 2 diabetes mellitus with circulatory disorder (Chronic) Presence of IVC filter (Acute) Pulmonary hypertension (Chronic) Rheumatoid arthritis (Chronic) Sepsis (Resolved) Septic arthritis of elbow, right (Inactive) Toxic metabolic encephalopathy (Resolved) Toxic metabolic encephalopathy (Resolved) Ulcerative colitis (Chronic) UTI (urinary tract infection) (Resolved) UTI (urinary tract infection) due to Enterococcus (Resolved) Surgical History Arthroplasty of knee (Resolved 03/18/12) irrigation and lavage right Fracture, Open Treatment (Resolved) [place] [place] DISTAL HUMERUS FRACTURE History of insertion of T-tube into biliary tract (Chronic) S/P colectomy (Chronic) Social History (Updated 06/02/19 @ 16:54 by Pablo Cobb) Smoking/Tobacco Use Status: Former Tobacco Use Alcohol Intake: former Drug use: Rarely Substance use type: marijuana Housing: custodial Do you feel safe at home: Yes Do you feel safe in your relationship?: Yes Additional Social history: Living at [facility] in [facility] Medications and Allergies Home Medications Medication Instructions Recorded Confirmed Type cyanocobalamin (vitamin B-12) 1,000 mcg PO DAILY 12/23/17 05/17/19 History ferrous sulfate 325 mg PO BID #0 tab 12/31/17 06/02/19 Rx magnesium chloride [Mag 64] 64 mg PO BID #0 tab 02/10/18 06/02/19 Rx terazosin 4 mg PO BID #0 cap 02/10/18 06/02/19 Rx Centrum Complete 1 tab PO DAILY 03/01/18 06/02/19 History ascorbic acid (vitamin C) [Vitamin 1 tab PO BID 03/01/18 06/02/19 History C] insulin aspart U-100 [Novolog See Rx Instructions .ROUTE 06/19/18 05/17/19 Rx Flexpen U-100 Insulin] .COMPLEX #15 ml melatonin 6 mg PO HS #30 tab 06/19/18 06/02/19 Rx pantoprazole 40 mg PO DAILY #60 tab 06/19/18 06/02/19 Rx sodium bicarbonate 650 mg PO TID #90 tab 06/19/18 06/02/19 Rx calcium carbonate-vitamin D3 1 tab PO BID 07/09/18 06/02/19 History [Calcium 500 + D] venlafaxine [Effexor XR] 112.5 mg PO DAILY 10/23/18 06/02/19 History acetaminophen [Tylenol] 1,000 mg PO TID 01/08/19 05/17/19 History gabapentin 300 mg PO TID 01/08/19 06/02/19 History Zyrtec 10 mg PO DAILY 02/23/19 06/02/19 History amlodipine 10 mg PO DAILY 02/26/19 06/02/19 History levothyroxine 12.5 mcg PO HS 02/26/19 06/02/19 History Lantus Solostar U-100 Insulin 40 unit SUBCUT BID 03/15/19 06/02/19 History insulin aspart U-100 10 unit SC AC #15 ml 03/19/19 05/01/19 Rx metoprolol tartrate 25 mg PO BID 05/01/19 06/02/19 History Eliquis 2.5 mg PO BID #60 tab 05/20/19 06/02/19 Rx clonidine HCl [Catapres] 0.1 mg PO TID #0 tab 05/20/19 06/02/19 Rx furosemide [Lasix] 40 mg PO BID #0 tab 05/20/19 06/02/19 Rx acidophilus-pectin, citrus 1 cap PO DAILY 06/02/19 06/02/19 History wzewrzvy-ztvkzcyal-efyyrvd HMB 1 packet PO BID 06/02/19 06/02/19 History [Enrique] insulin lispro [Humalog KwikPen 0 unit SUBCUT AC 06/02/19 06/02/19 History Insulin] ipratropium-albuterol [Combivent 1 puff INHALATION Q6H PRN 06/02/19 06/02/19 History Respimat] prednisone 5 mg PO DAILY 06/02/19 06/02/19 History risperidone [Risperdal] 2 mg PO HS 06/02/19 06/02/19 History vitamin B complex 100 2-herbs 1 tab PO DAILY 06/02/19 06/02/19 History Allergies Allergy/AdvReac Type Severity Reaction Status Date / Time lisinopril Allergy Unverified 06/02/19 10:44 Exam Narrative Exam Narrative: GEN: awake, alert, intermittently cooperative. Poorly groomed HEAD: Normocephalic, atraumatic ENT: Mucous membranes moist, oropharynx unremarkable, External ear exam unremarkable EYES: PERRL, EOMI, no icterus NECK: Full ROM, no ETELVINA, supple, no masses CHEST/RESP: Nontender chest wall. Breath sounds distant, bilateral rales at bases, no wheeze. CARDIOVASCULAR: Distant, RRR, no murmur, rub ambrose. 2+ Rad pulse bilateral ABDOMEN: Soft, nontender, no mass. +Bowel sounds EXT: Deformities of hands noted (chronic). no redness or swelling. left anterior tibial ulceration that is dressed, 2+ edema bilaterally, chronic venous stasis changes. Neuro: Grossly normal neurologic exam. skin: somewhat clammy, ulceration and venous stasis changes in LE as above, no other lesions noted. Psych: Speech fluent, thoughts congruent, affect flat Results Chest x-ray: Enlarged heart, mild diffuse pulmonary interstitial radiodensities. 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, no change from May 19 Of note, COVID 19 negative on May 17 Labs Result diagrams: 06/02/19 10:50 06/02/19 10:50 Labs: Laboratory Results - last 24 hr 06/02/19 06/02/19 06/02/19 10:50 10:50 10:50 WBC 12.92 H RBC 4.47 L Hgb 10.2 L Hct 38.7 L MCV 86.6 MCH 22.8 L MCHC 26.4 L RDW 19.4 H Plt Count 261 MPV 10.4 Immature Gran % 0.4 Neutrophils % 86.1 Lymphocytes % 4.8 Monocytes % 7.0 Eosinophils % 1.6 Basophils % 0.1 Absolute Neutrophils 11.12 H Absolute Lymphocytes 0.62 L Absolute Monocytes 0.90 H Absolute Eosinophils 0.21 Absolute Basophils 0.01 Differential Comment Rbc morph reviewed RBC Morphology See below Polychromasia Present Hypochromasia 2+ Poikilocytosis 2+ Anisocytosis 2+ Microcytosis 1+ Stomatocytes 2+ PT 10.7 INR 1.1 ABG Sample Site ABG pH ABG pCO2 ABG pO2 ABG HCO3 ABG Total CO2 ABG O2 Saturation ABG Base Excess FiO2 Sodium 144 Potassium 3.7 Chloride 102 Carbon Dioxide 43.2 H Anion Gap -1.2 L BUN 90 H* Creatinine 2.84 H Estimated GFR/1.73 m2 22.85 Glucose 241 H Calcium 8.8 Magnesium 2.1 Total Bilirubin 0.7 AST 10 L ALT 19 Alkaline Phosphatase 109 Troponin I < 0.05 NT-Pro-B Natriuret Pep 1470 H Total Protein 6.8 Albumin 2.9 L 06/02/19 12:42 WBC RBC Hgb Hct MCV MCH MCHC RDW Plt Count MPV Immature Gran % Neutrophils % Lymphocytes % Monocytes % Eosinophils % Basophils % Absolute Neutrophils Absolute Lymphocytes Absolute Monocytes Absolute Eosinophils Absolute Basophils Differential Comment RBC Morphology Polychromasia Hypochromasia Poikilocytosis Anisocytosis Microcytosis Stomatocytes PT INR ABG Sample Site Right radial ABG pH 7.39 ABG pCO2 77 H* ABG pO2 50 L ABG HCO3 46 H ABG Total CO2 44 H ABG O2 Saturation 87 L ABG Base Excess > 15.0 H FiO2 28 Sodium Potassium Chloride Carbon Dioxide Anion Gap BUN Creatinine Estimated GFR/1.73 m2 Glucose Calcium Magnesium Total Bilirubin AST ALT Alkaline Phosphatase Troponin I NT-Pro-B Natriuret Pep Total Protein Albumin Last Vital Signs Temp 36.8 C 06/02/19 15:00 Pulse 74 06/02/19 15:00 Resp 29 H 06/02/19 15:00 BP 176/74 H 06/02/19 15:00 Pulse Ox 95 06/02/19 15:00 COVID-19 Screening Traveled to [place] from one of the affected countries or regions?: NO Recent travel in the [place] within the last 8 weeks?: No Recent out of the country travel within the last 8 weeks?: No Exposure or possible exposure to illness during travel?: No Medical treatment received for symptoms/illness related to travel?: lives at the [facility]
[2019-06-02] MEDS: Insulin Aspart 300 UNITS/3 ML PEN 10 UNITS SC (19:15)
[2019-06-02] MEDS: Insulin Aspart 300 UNITS/3 ML PEN SC (19:15)
[2019-06-02] MEDS: cloNIDine 0.1 MG TAB PO (19:59)
[2019-06-02] MEDS: Metoprolol 25 MG TAB PO (19:59)
[2019-06-02] MEDS: Gabapentin 300 MG CAP PO (19:59)
[2019-06-02] MEDS: Apixaban 2.5 MG TAB PO (20:00)
[2019-06-02] MEDS: Terazosin 2 MG CAP 4 MG PO (20:00)
[2019-06-02] MEDS: Sodium Bicarbonate 650 MG TAB PO (20:00)
[2019-06-02] MEDS: Insulin Glargine 300 UNITS/3 ML PEN 40 UNITS SC (20:00)
[2019-06-02] MEDS: predniSONE 5 MG TAB PO (20:00)
[2019-06-02] MEDS: Melatonin 3 MG TAB 6 MG PO (22:14)
[2019-06-02] MEDS: risperiDONE 1 MG TAB 2 MG PO (22:14)
[2019-06-03] VITALS (20 sets, daily range): BP systolic 118–157; BP diastolic 64–84; PULSE 46–69; RESP 14–24; TEMP 35.8–36.9; O2SAT 88–100
[2019-06-03] MEDS: Levothyroxine 25 MCG TAB 12.5 MCG PO (05:30)
[2019-06-03] MEDS: Venlafaxine 37.5 MG CAPCR PO (08:37)
[2019-06-03] MEDS: Lactobacillus Acidophilus CAP 1 CAP PO (08:37)
[2019-06-03] MEDS: Sodium Bicarbonate 650 MG TAB PO ×3 (08:37→21:47)
[2019-06-03] MEDS: Gabapentin 300 MG CAP PO ×3 (08:37→21:47)
[2019-06-03] MEDS: Terazosin 2 MG CAP 4 MG PO ×2 (08:37→21:47)
[2019-06-03] MEDS: Pantoprazole 40 MG TABCR PO (08:37)
[2019-06-03] MEDS: Apixaban 2.5 MG TAB PO ×2 (08:38→21:46)
[2019-06-03] MEDS: cloNIDine 0.1 MG TAB PO ×3 (08:38→21:47)
[2019-06-03] MEDS: Cetirizine 10 MG TAB PO (08:38)
[2019-06-03] MEDS: amLODIPine 10 MG TAB PO (08:38)
[2019-06-03] MEDS: Metoprolol 25 MG TAB PO ×2 (08:38→21:48)
[2019-06-03] MEDS: Magnesium Chloride 64 MG TABCR PO ×2 (08:39→18:31)
[2019-06-03] MEDS: Insulin Glargine 300 UNITS/3 ML PEN 40 UNITS SC (08:41)
[2019-06-03] MEDS: Furosemide 100 MG/10 ML VIAL 80 MG IVP ×2 (08:41→16:25)
[2019-06-03] MEDS: Insulin Aspart 300 UNITS/3 ML PEN SC ×3 (08:44→17:42)
[2019-06-03] MEDS: Insulin Aspart 300 UNITS/3 ML PEN 10 UNITS SC ×3 (08:45→17:41)
[2019-06-03 09:40] LABS: Abs Immature Grans 0.04 k/cumm (0.0-0.09); Absolute Lymphocyte Count 0.53 k/cumm (1.2-3.4); Absolute Monocyte Count 0.33 k/cumm (0.11-0.7); Absolute Neutrophil Count 5.19 k/cumm (1.2-6.7); Anion Gap 0.1 mmol/L (3-11); CO2 43.9 mmol/L (21.0-32.0); CREATININE 2.44 mg/dL (0.70-1.30); Calcium 8.3 mg/dL (8.5-10.1); Chloride 100 mmol/L (98-107); Estimated GFR 27.23 (mL/min/1.73m2); Glucose 330 mg/dL (74-106); HCT 35.9 % (40.0-50.0); HGB 9.6 g/dL (13.5-17.5); Immature Grans % 0.7 %; Lymphocytes % 8.7; Mean Corp. HGB Concentration 26.7 g/dL (32.0-36.0); Mean Corpuscular Hemoglobin 22.3 pg (27.0-33.0); Mean Corpuscular Volume 83.3 fL (80-95); Mean Platelet Volume 11.5 fL (8.0-11.0); Monocytes % 5.4; Neutrophils % 85.2; Platelet Count 256 x1000/uL (130-400); Potassium 3.9 mmol/L (3.5-5.1); RBC 4.31 m/cumm (4.50-6.00); Sodium 144 mmol/L (136-145); White Blood Cell Count 6.09 k/cumm (4.4-10.8)
[2019-06-03] MEDS: Normal Saline Flush 10 ML SYR IVP (09:49)
[2019-06-03 09:52] LABS: Anisocytosis 2+; BUN 87 mg/dL (7-18); Diff Comment RBC Morph Reviewed; Hypochromasia 1+; Macrocytosis 1+; Microcytosis 1+; Ovalocytes 2+; Polychromasia Present
[2019-06-03 09:53] LABS: Poikilocytes 2+
[2019-06-03] MEDS: predniSONE 5 MG TAB PO (09:54)
--- NOTE | 2019-06-03 11:54 | PDOC.CMIN ---
- If Service Date Differs Date of service: 06/03/19 Time of Service: 11:54 Care Management Initial Assess REASON FOR HOSPITALIZATION:: Acute respiratory distress PAST MEDICAL HISTORY/PAST SURGICAL HISTORY:: CHF, Anemia, Anxiety, Back Pain, Bipolar Disorder, CAD, Cardiopulmonary arrest with successful resuscitation, cholelithiasis, anxiety, insomnia, chronic pain, CKD, Crohn's Disease, DM type 2 with diabetic neuropathy, diabetic foot ulcer, dyslipidemia, heme positive stool, hemorrhagic cystitis, hypertension, hypoandrogenism, hypothyroidism, impaired mobility and ADLs, Obesity, Pedal edema, Osteoarthritis of both knees, poor self care, poorly controlled DM2 with circulatory disorder, RA, TKA, Fracture ORIF R distal humerus fracture. 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 Brendan has a sister, Lian Hardy (P#[phone]) who lives in [facility] but they have limited contact. They do speak via phone every couple of weeks. he also has numerous nieces and nephews but states he rarely sees them. His sister is his only identified family support. Brendan enjoys reading and watching TV. CURRENT FUNCTIONAL STATUS:: Brendan is currently in the Covid unit pending rule out, CM will meet with him when he arrives to the floor. 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 ADVANCE DIRECTIVES:: [facility]ST on file Has patient been provided with information about the portal?: Yes Did the patient sign up for the portal?: No CODE STATUS:: Full Code INSURANCE COVERAGE / FINANCIAL ISSUES:: Medicare and Medicaid CURRENT HOME/COMMUNITY SERVICES/EQUIPMENT:: Brendan lives at the [facility], he has a BIPAP he uses at the [facility], he also has an ostomy. All his care needs are met at the [facility]. PRIMARY CARE PHYSICIAN:: [facility] Provider and manage Brendan's care POTENTIAL DISCHARGE NEEDS:: Coordiantion of return to the [facility] when medically ready PATIENT/FAMILY EDUCATION NEEDS:: Discharge education, limitations and coordiantion of follow up care with the [facility] ANTICIPATED BARRIERS TO DISCHARGE:: Pending COVID rule out and coordiantion return to the [facility] TRANSPORTATION:: Via [facility] wheelchair van PLAN:: Brendan will be discharged back to the [facility] when medically ready. He will need to be transported via [facility] coordinated by CM. CM to continue to assess for patient for ongoing discharge needs.
--- NOTE | 2019-06-03 13:57 | W.PM.PROGNOT ---
Date of Service Date of service: 06/03/19 Time of Service: 13:58 Assessment and Plan Assessment and plan (1) Acute on chronic diastolic heart failure: Status: Acute Assessment and plan: Patient does appear to be responding to treatment for CHF. We will continue to diurese with IV furosemide. He takes sodium bicarbonate chronically due to his chronic respiratory acidosis, this is a significant salt load which will make him drink more and have more CHF. Potassium salts may be risky with his chronic renal insufficiency. Tromethamine is an option, pharmacy not sure we have this and I am not familiar with its use so I am somewhat hesitant. At this point, try to balance sodium input with diuresis. Continue BiPAP at night and as needed, if he continues stable he can likely come out of the unit tomorrow, or this evening if needed. We will not repeat echocardiogram as this was done in February of this year and showed a preserved ejection fraction. We are ruling out coronavirus infection as he has been in and [id number] and is presenting with respiratory symptoms, still pending. I did not continue Solu-Medrol as I do not think this is COPD and there is some risk with coronavirus pneumonia. (2) Acute on chronic renal insufficiency: Status: Acute Assessment and plan: Creatinine is improving back towards baseline of around 2 despite diuresis. Continue to monitor. (3) Adrenal insufficiency: Status: Chronic Assessment and plan: Chronic issue. Blood pressures have been stable, and I do not think this is an infection so we will continue just on chronic physiologic dose prednisone. (4) Hypertension: Status: Chronic Assessment and plan: Blood pressure better on his outpatient medications after some diuresis. Qualifiers: Hypertension type: essential hypertension Qualified Code(s): I10 - Essential (primary) hypertension (5) Hypothyroidism: Status: Chronic Assessment and plan: TSH was normal in March 15, though he may benefit long-term from having a goal closer to 2 given his cardiac disease. His dose is quite low, so he may be better off not taking supplemental levothyroxine. Will defer to primary care. Qualifiers: Hypothyroidism type: acquired Qualified Code(s): E03.9 - Hypothyroidism, unspecified (6) Leg wound, left: Status: Chronic Assessment and plan: Continue wound care. Qualifiers: Encounter type: subsequent encounter Qualified Code(s): S81.802D - Unspecified open wound, left lower leg, subsequent encounter (7) Chronic bipolar disorder: Status: Chronic Assessment and plan: Continue outpatient psychiatric medications. Appears stable. (8) Atrial flutter, paroxysmal: Status: Chronic Assessment and plan: Anticoagulated on low-dose apixaban given renal dysfunction. This also functions as DVT prophylaxis. His rate is well controlled currently. (9) Diabetes mellitus: Status: Chronic Assessment and plan: A1c was 8.4 in April, which is not unreasonable given his comorbidities. Blood sugars were high today, so will increase basal insulin slightly. The dose of methylprednisolone yesterday may be contributing as well. Continue other outpatient therapy. Qualifiers: Diabetes mellitus type: type 2 Diabetes mellitus buttermaker continuous churn insulin use: with fpc use Diabetes mellitus complication status: with neurologic complications Diabetes mellitus complication detail: with polyneuropathy Qualified Code(s): E11.42 - Type 2 diabetes mellitus with diabetic polyneuropathy; Z79.4 - MCFP (current) use of insulin Subjective Subjective Patient reports: denies vomiting Interval history since last seen: 24-hour: On BiPAP overnight, transition to nasal cannula this morning Ostomy site was leaking, bag and seal replace. Hemoccult positive, no gross blood. Brendan states he is fine. Specifically denies fevers, cough, or chest pain. He has little cold. Report not eating much. Per nursing, more cooperative and better mood today. Exam Narrative Exam Narrative: GEN: Initially sleeping, but does wake up and responds appropriatel to direct questions, though with short limited responses. ENT: Mucous membranes moist, conjunctive a clear, no icterus RESP: Breath sounds distant, rales at left base (dependent), no wheeze. CARDIOVASCULAR: Distant, RRR, no murmur, rub ambrose. 2+ Rad pulse bilateral ABDOMEN: Soft, nontender, no mass. +Bowel sounds. Ostomy site looks clean and is not leaking. EXT: Deformities of hands noted (chronic). skin: Dry., ulceration and venous stasis changes unchanged, wound dressed. Objective Objective Clinical Data: Abnormal lab results 06/03/19 06/03/19 Range/Units 09:10 09:10 RBC 4.31 L (4.50-6.00) m/cumm Hgb 9.6 L (13.5-17.5) g/dL Hct 35.9 L (40.0-50.0) % MCH 22.3 L (27.0-33.0) pg MCHC 26.7 L (32.0-36.0) g/dL RDW 19.0 H (11.8-14.1) % MPV 11.5 H (8.0-11.0) fL Absolute Lymphocytes 0.53 L (1.2-3.4) k/cumm Carbon Dioxide 43.9 H (21.0-32.0) mmol/L Anion Gap 0.1 L (3-11) mmol/L BUN 87 H* (7-18) mg/dL Creatinine 2.44 H (0.70-1.30) mg/dL Glucose 330 H (74-106) mg/dL Calcium 8.3 L (8.5-10.1) mg/dL Vital Signs Temperature 36.7 C 06/03/19 12:31 Temperature Source Tympanic 06/03/19 12:31 Pulse 52 L 06/03/19 12:31 Pulse 52 L 06/03/19 12:00 Respiratory Rate 24 06/03/19 12:31 Respiratory Effort 06/03/19 12:31 Respiratory Depth Normal 06/03/19 12:31 Respiratory Pattern Normal 06/03/19 12:31 Blood Pressure 134/65 06/03/19 12:31 Blood Pressure Mean 88 06/03/19 12:31 Blood Pressure Position Supine 06/03/19 12:31 Pulse Oximetry 100 06/03/19 12:31 Oxygen Delivery Method Hi Flow Nasal Cannula 06/03/19 12:31 Oxygen Flow Rate 2 06/03/19 12:31 Fraction of Inspired Oxygen (FIO2) 28 06/03/19 05:20 Pain Level 0 06/03/19 12:31 Intake & Output 06/02/19 06/03/19 06/03/19 23:59 11:59 23:59 Intake Total 100 / 100 1015 / 1015 Output Total 1550 / 1550 1200 / 1200 Balance -1450 / -1450 -185 / -185 Weight 106.05 kg Intake: IV 25 / 25 Oral 100 / 100 990 / 990 Output: Urine 1550 / 1550 1100 / 1100 Stool 100 / 100 Other: Urine Color Yellow Yellow Urine Appearance Cloudy Cloudy Comment ruiz in place. pre lasix pre lasix Stool Occult Blood Positive Stool Size Moderate Stool Characteristics Liquid Laboratory Results WBC 6.09 k/cumm (4.4-10.8) D 06/03/19 09:10 RBC 4.31 m/cumm (4.50-6.00) L 06/03/19 09:10 Hgb 9.6 g/dL (13.5-17.5) L 06/03/19 09:10 Hct 35.9 % (40.0-50.0) L 06/03/19 09:10 MCV 83.3 fL (80-95) D 06/03/19 09:10 MCH 22.3 pg (27.0-33.0) L 06/03/19 09:10 MCHC 26.7 g/dL (32.0-36.0) L 06/03/19 09:10 RDW 19.0 % (11.8-14.1) H 06/03/19 09:10 Plt Count 256 x1000/uL (130-400) 06/03/19 09:10 MPV 11.5 fL (8.0-11.0) H 06/03/19 09:10 Immature Gran % 0.7 % 06/03/19 09:10 Neutrophils % 85.2 06/03/19 09:10 Lymphocytes % 8.7 06/03/19 09:10 Monocytes % 5.4 06/03/19 09:10 Eosinophils % 0.0 06/03/19 09:10 Basophils % 0.0 06/03/19 09:10 Absolute Neutrophils 5.19 k/cumm (1.2-6.7) 06/03/19 09:10 Absolute Lymphocytes 0.53 k/cumm (1.2-3.4) L 06/03/19 09:10 Absolute Monocytes 0.33 k/cumm (0.11-0.7) 06/03/19 09:10 Absolute Eosinophils 0.00 k/cumm (0.0-0.7) 06/03/19 09:10 Absolute Basophils 0.00 k/cumm (0.0-0.2) 06/03/19 09:10 Differential Comment Rbc morph reviewed 06/03/19 09:10 RBC Morphology See below 06/03/19 09:10 Polychromasia Present 06/03/19 09:10 Hypochromasia 1+ 06/03/19 09:10 Poikilocytosis 2+ 06/03/19 09:10 Anisocytosis 2+ 06/03/19 09:10 Microcytosis 1+ 06/03/19 09:10 Macrocytosis 1+ 06/03/19 09:10 Ovalocytes 2+ 06/03/19 09:10 Stomatocytes 2+ 06/02/19 10:50 PT 10.7 sec (9.3-11.0) 06/02/19 10:50 INR 1.1 (0.9-1.1) 06/02/19 10:50 ABG Sample Site Right radial 06/02/19 12:42 ABG pH 7.39 (7.35-7.45) 06/02/19 12:42 ABG pCO2 77 mmHg (34-47) H* 06/02/19 12:42 ABG pO2 50 mmHg (83-108) L 06/02/19 12:42 ABG HCO3 46 mmol/L (22-28) H 06/02/19 12:42 ABG Total CO2 44 mmol/L (22-29) H 06/02/19 12:42 ABG O2 Saturation 87 % (94-98) L 06/02/19 12:42 ABG Base Excess > 15.0 mmol/L (-3-3) H 06/02/19 12:42 FiO2 28 % 06/02/19 12:42 Sodium 144 mmol/L (136-145) 06/03/19 09:10 Potassium 3.9 mmol/L (3.5-5.1) 06/03/19 09:10 Chloride 100 mmol/L (98-107) 06/03/19 09:10 Carbon Dioxide 43.9 mmol/L (21.0-32.0) H 06/03/19 09:10 Anion Gap 0.1 mmol/L (3-11) L 06/03/19 09:10 BUN 87 mg/dL (7-18) H* 06/03/19 09:10 Creatinine 2.44 mg/dL (0.70-1.30) H 06/03/19 09:10 Estimated GFR/1.73 m2 27.23 (mL/min/1.73m2) 06/03/19 09:10 Glucose 330 mg/dL (74-106) H 06/03/19 09:10 Calcium 8.3 mg/dL (8.5-10.1) L 06/03/19 09:10 Magnesium 2.1 mg/dL (1.8-2.4) 06/02/19 10:50 Total Bilirubin 0.7 mg/dL (0.2-1.0) 06/02/19 10:50 AST 10 U/L (15-37) L 06/02/19 10:50 ALT 19 U/L (16-63) 06/02/19 10:50 Alkaline Phosphatase 109 U/L (46-116) 06/02/19 10:50 Troponin I < 0.05 ng/Ml (<0.06) 06/02/19 10:50 NT-Pro-B Natriuret Pep 1470 pg/mL (<300) H 06/02/19 10:50 Total Protein 6.8 g/dL (6.4-8.2) 06/02/19 10:50 Albumin 2.9 g/dL (3.4-5.0) L 06/02/19 10:50
--- NOTE | 2019-06-03 15:47 | PHA.REVIEW ---
Pharmacy Admission Review - Admission Clinical Review (Last Updated 06/02/19 @ 17:31 by Pablo Cobb) Acute respiratory failure with hypoxia and hypercarbia (Acute) Acute on chronic diastolic heart failure (Acute) Acute on chronic renal insufficiency (Acute) lisinopril Allergy (Unverified 06/02/19 10:44) Height 6 ft 1 in Weight 106.05 kg - Renal Dosing Renal Dosing: BUN 87 mg/dL (7-18) H* 06/03/19 09:10 Creatinine 2.44 mg/dL (0.70-1.30) H 06/03/19 09:10 Medications needing adjustments: Reviewed List of meds needing interventions: Gabapentin should be dosed twice daily in renal impairment - Anticoagulation Anticoagulation: Hgb 9.6 g/dL (13.5-17.5) L 06/03/19 09:10 Hct 35.9 % (40.0-50.0) L 06/03/19 09:10 Plt Count 256 x1000/uL (130-400) 06/03/19 09:10 INR 1.1 (0.9-1.1) 06/02/19 10:50 Creatinine 2.44 mg/dL (0.70-1.30) H 06/03/19 09:10 DVT Prohphylaxis: Reviewed Therapeutic Anticoagulation: Reviewed Medications: Apixaban - Opiate Usage Evaluate Pain Scale/Pains Meds: N/A Scheduled Bowel Reg ordered if on Opiates?: No - Relevant Labs Sodium 144 mmol/L (136-145) 06/03/19 09:10 Potassium 3.9 mmol/L (3.5-5.1) 06/03/19 09:10 Chloride 100 mmol/L (98-107) 06/03/19 09:10 Magnesium 2.1 mg/dL (1.8-2.4) 06/02/19 10:50 - DM Control DM Control: Glucose 330 mg/dL (74-106) H 06/03/19 09:10 Finger Stick Blood Glucose 248 Finger Stick Blood Glucose 248 Finger Stick Blood Glucose 248 Finger Stick Blood Glucose 338 Finger Stick Blood Glucose 338 Insulin Dosing: Reviewed (Glargine dose increased to 43 units at HS) - Heart Failure/[place] Heart Failure/[place]: Troponin I < 0.05 ng/Ml (<0.06) 06/02/19 10:50 NT-Pro-B Natriuret Pep 1470 pg/mL (<300) H 06/02/19 10:50 EF%, ARYA's, B-Blockers, Diuretics: Reviewed (amlodipine, clonidine, furosemide, metoprolol, terazosin) - BP Control BP Control: Blood Pressure [Left Arm] 134/65 Blood Pressure [Left Arm] 157/71 If elevated: Reviewed - Qtc Review If Elevated: Reviewed - IV to PO Switch IV Medications: Reviewed - Home Meds Home Med List reviewed: Reviewed - Current meds Current Medication Order Review: Reviewed - Comments Comments/Follow Ups: Discussed use of tromethamine instead of sodium bicarbonate to lessen sodium load but unfortunately this drug is no longer available in the [place] -- [place] states will try to balance sodium input with diuresis
[2019-06-03 16:42] LABS: COVID-19 RT-PCR Result Not Detected (NotDetected)
[2019-06-03] MEDS: risperiDONE 1 MG TAB 2 MG PO (21:46)
[2019-06-03] MEDS: Insulin Glargine 300 UNITS/3 ML PEN 43 UNITS SC (21:48)
[2019-06-03] MEDS: Melatonin 3 MG TAB 6 MG PO (21:48)
[2019-06-04 03:31] VITALS: BP 128/79; PULSE 59; RESP 20; TEMP 36.8; O2SAT 97
[2019-06-04] MEDS: Levothyroxine 25 MCG TAB 12.5 MCG PO (06:28)
[2019-06-04 07:19] LABS: BUN 79 mg/dL (7-18); CREATININE 2.53 mg/dL (0.70-1.30); Calcium 8.3 mg/dL (8.5-10.1); Chloride 100 mmol/L (98-107); Estimated GFR 26.11 (mL/min/1.73m2); Glucose 164 mg/dL (74-106); Potassium 3.1 mmol/L (3.5-5.1); Sodium 143 mmol/L (136-145)
[2019-06-04 07:20] VITALS: BP 169/79; PULSE 55; RESP 19; TEMP 35.8; O2SAT 97
[2019-06-04 07:30] VITALS: O2SAT 95
[2019-06-04] MEDS: Insulin Aspart 300 UNITS/3 ML PEN 10 UNITS SC ×2 (08:28→12:06)
[2019-06-04] MEDS: Furosemide 100 MG/10 ML VIAL 80 MG IVP (08:28)
[2019-06-04] MEDS: Insulin Aspart 300 UNITS/3 ML PEN SC ×2 (08:28→12:06)
[2019-06-04] MEDS: Terazosin 2 MG CAP 4 MG PO (08:29)
[2019-06-04] MEDS: Lactobacillus Acidophilus CAP 1 CAP PO (08:29)
[2019-06-04] MEDS: Apixaban 2.5 MG TAB PO (08:30)
[2019-06-04] MEDS: amLODIPine 10 MG TAB PO (08:30)
[2019-06-04] MEDS: Venlafaxine 37.5 MG CAPCR 112.5 MG PO (08:30)
[2019-06-04] MEDS: Pantoprazole 40 MG TABCR PO (08:31)
[2019-06-04] MEDS: Metoprolol 25 MG TAB PO (08:32)
[2019-06-04] MEDS: Sodium Bicarbonate 650 MG TAB PO (08:32)
[2019-06-04] MEDS: cloNIDine 0.1 MG TAB PO ×2 (08:33→13:55)
[2019-06-04] MEDS: Cetirizine 10 MG TAB PO (08:33)
[2019-06-04] MEDS: Insulin Glargine 300 UNITS/3 ML PEN 43 UNITS SC (08:33)
[2019-06-04] MEDS: Gabapentin 300 MG CAP PO ×2 (08:33→13:56)
[2019-06-04] MEDS: predniSONE 5 MG TAB PO (08:33)
[2019-06-04 08:34] VITALS: RESP 18
[2019-06-04 08:35] VITALS: PULSE 60; O2SAT 95
[2019-06-04] MEDS: Magnesium Chloride 64 MG TABCR PO (10:17)
[2019-06-04 11:30] VITALS: BP 153/65; PULSE 64; RESP 20; TEMP 36.5; O2SAT 97
[2019-06-04] MEDS: Potassium Bicarbonate/Cit AC 25 MEQ TABLET.EFF PO (12:06)
--- NOTE | 2019-06-04 12:49 | DSE_ITS ---
Date of service: 06/04/19 Time of Service: 12:49 DS: Diagnosis Discharge Diagnosis (1) Acute on chronic diastolic heart failure: Status: Acute (2) Acute on chronic renal insufficiency: Status: Acute (3) Adrenal insufficiency: Status: Chronic (4) Hypertension: Status: Chronic (5) Hypothyroidism: Status: Chronic (6) Leg wound, left: Status: Chronic (7) Chronic bipolar disorder: Status: Chronic (8) Atrial flutter, paroxysmal: Status: Chronic (9) Diabetes mellitus: Status: Chronic Discharge Plan Disposition Patient Disposition: SNF (LEVEL 1) [facility] Condition: Stable Discharge Details Chief Complaint: SOB Clinical Impression: CHF (congestive heart failure), Acute respiratory failure with hypoxia and hypercarbia Reason For Visit: ACUTE RESPIRATORY DISTRESS Admit Date/Time: 06/02/19 12:02 Admit Provider: Pablo Cobb Attending Provider: Pablo Cobb Primary Care Provider: Lou Maldonado ED Provider: Calderon Del Cid Hospital Course Hospital Course: 59-year-old man with complex medical history who is resident at the [facility], with history of CHF with preserved ejection fraction, presented with increased shortness of breath and general malaise with increased lower extremity edema despite outpatient diuresis. Evaluation emergency room including chest x-ray and BNP and exam consistent with CHF. He was given 1 dose of IV Solu-Medrol, but treatment for COPD was not continued. EKG and troponin consistent with acute coronary syndrome. He was initially admitted to the ICU, but responded quite well to diuresis and was downgraded to floor status the next day, and continue to be stable to the day of discharge. He was at least 3 L negative in his documented weight decreased 2 kg over the 2 days. He did have another negative test for COVID 19, and he was not treated for pneumonia. Echocardiogram was not repeated as he had an echocardiogram 03/17/2019 which showed preserved ejection fraction. Is creatinine was 2.8 on admission, this went down to 2.4-5 with decreasing BUN despite more aggressive diuresis. He was discharged on an increased dose of furosemide, 80 mg twice daily. He was also recognized that his 3 times daily sodium bicarbonate was contributing to his thirst and heart failure. This was decreased to twice daily and he was given a single dose of potassium bicarbonate at the midday given his potassium was low at 3.1. It was felt prudent to be conservative given his history of hyperkalemia associated with renal failure. BMP was ordered to follow-up early next week. Consultation with nephrology would likely be prudent on follow-up to clarify the need for chronic sodium bicarbonate and other options to manage his complex acid-base status. Candidal appearing rash was noted by nursing, and nystatin given. Home Meds and New Rx's Prescriptions: New nystatin 100,000 unit/gram Powder 0 g topical BID Qty: 0 RF: 0 potassium bicarb-citric acid 20 mEq tablet, effervescent 20 meq PO DAILY Qty: 30 RF: 0 Continued cyanocobalamin (vitamin B-12) 1,000 mcg Tablet 1,000 mcg PO DAILY RF: 0 ferrous sulfate 325 mg (65 mg iron) Tablet 325 mg PO BID Qty: 0 RF: 0 ascorbic acid (vitamin C) [Vitamin C] 250 mg Tablet 1 tab PO BID RF: 0 Centrum Complete 18-400 mg-mcg Tablet 1 tab PO DAILY RF: 0 insulin aspart U-100 [Novolog Flexpen U-100 Insulin] 100 unit/mL Insulin Pen See Rx Instructions .ROUTE .COMPLEX Qty: 15 RF: 0 pantoprazole 40 mg Tablet,Delayed Release (Dr/Ec) 40 mg PO DAILY Qty: 60 RF: 0 melatonin 3 mg Tablet Extended Release 6 mg PO HS Qty: 30 RF: 0 calcium carbonate-vitamin D3 [Calcium 500 + D] 500 mg(1,250mg) -400 unit Tablet 1 tab PO BID RF: 0 acetaminophen [Tylenol] 325 mg tablet 1,000 mg PO TID RF: 0 gabapentin 100 mg capsule 300 mg PO TID RF: 0 risperidone [Risperdal] 2 mg tablet 2 mg PO HS RF: 0 vitamin B complex 100 2-herbs 100 mg Tablet 1 tab PO DAILY RF: 0 Enrique 7-7-1.5 gram Powder In Packet 1 packet PO BID RF: 0 Combivent Respimat 20-100 mcg/actuation Mist 1 puff INHALATION Q6H PRNRF: 0 acidophilus-pectin, citrus 25 million cell -100 mg tablet 1 cap PO DAILY RF: 0 insulin lispro [Humalog KwikPen Insulin] 100 unit/mL Insulin Pen 0 unit SUBCUT AC RF: 0 prednisone 5 mg Tablet 5 mg PO DAILY RF: 0 terazosin 2 mg Capsule 4 mg PO BID Qty: 0 RF: 0 magnesium chloride [Mag 64] 64 mg Tablet,Delayed Release (Dr/Ec) 64 mg PO BID Qty: 0 RF: 0 venlafaxine [Effexor XR] 37.5 mg Capsule,Extended Release 24hr 112.5 mg PO DAILY RF: 0 Zyrtec 10 mg Capsule 10 mg PO DAILY RF: 0 amlodipine 5 mg tablet 10 mg PO DAILY RF: 0 levothyroxine 25 mcg tablet 12.5 mcg PO HS RF: 0 Lantus Solostar U-100 Insulin 100 unit/mL (3 mL) insulin pen 40 unit subcut BID RF: 0 insulin aspart U-100 100 unit/mL (3 mL) insulin pen 10 unit SC AC Qty: 15 RF: 0 metoprolol tartrate 25 mg Tablet 25 mg PO BID RF: 0 clonidine HCl [Catapres] 0.1 mg tablet 0.1 mg PO TID Qty: 0 RF: 0 Eliquis 5 mg Tablet 2.5 mg PO BID Qty: 60 RF: 0 Changed furosemide [Lasix] 40 mg Tablet 80 mg PO BID Qty: 0 RF: 0 sodium bicarbonate 650 mg Tablet 650 mg PO BID Qty: 90 RF: 0 Discharge Instructions Instructions: Heart Failure (DC) Additional Instructions: As above, resume previous medication with exception of increase furosemide and replacing 1 sodium bicarbonate for potassium bicarbonate. Stand Alone Forms: Nursing Discharge Form Activity:: Activity as Tolerated Equipment/Supplies:: No Equipment Needed Diet:: Low Sodium Discharge Orders Discharge Orders: Discharge Order (Routine); Ordered 06/04/19 Ordered By: Pablo Cobb Other Ambulatory Orders: Basic Metabolic Panel (Routine) Timeframe: 3 Days Location: None Selected Ordered By: Pablo Cobb Magnesium (Routine) Timeframe: 3 Days Location: None Selected Ordered By: Pablo Cobb DS: Summary Status at Discharge Functional status at discharge: wheelchair bound Overall status at discharge: patient is back to baseline Mental Status: mental status grossly normal Speech and Movement: speech and movement normal (For patient) Mood: congruent mood Affect: normal affect Exam Narrative Exam Narrative: GEN: Alert and oriented, responds appropriately to questions, pleasant ENT: Mucous membranes moist, conjunctive a clear, no icterus RESP: Breath sounds distant, improved air movement with no rales today but slightly coarse at the bases, no wheeze. CARDIOVASCULAR: Distant, RRR, no murmur, rub ambrose. 2+ Rad pulse bilateral ABDOMEN: Soft, nontender, no mass. +Bowel sounds. Ostomy site looks clean and is not leaking. EXT: Deformities of hands noted (chronic). skin: Dry., ulceration and venous stasis changes unchanged, wound dressed. Psych Mental Status: mental status grossly normal Speech and Movement: speech and movement normal (For patient) Mood: congruent mood Affect: normal affect DS: Data Vitals/I&O Vitals and I&O: Vital Signs Temperature 36.5 C 06/04/19 11:30 Temperature Source Tympanic 06/04/19 11:30 Pulse 64 06/04/19 11:30 Pulse Rhythm Regular 06/04/19 07:30 Pulse 52 L 06/03/19 12:00 Respiratory Rate 20 06/04/19 11:30 Respiratory Effort Non-Labored 06/04/19 07:30 Respiratory Depth Normal 06/04/19 07:30 Respiratory Pattern Normal 06/04/19 07:30 Blood Pressure 153/65 H 06/04/19 11:30 Blood Pressure Mean 105 06/03/19 16:45 Blood Pressure Position Supine 06/03/19 16:45 Pulse Oximetry 97 06/04/19 11:30 Oxygen Delivery Method Nasal Cannula 06/04/19 11:30 Oxygen Flow Rate 2 06/04/19 11:30 Fraction of Inspired Oxygen (FIO2) 28 06/03/19 05:20 Pain Level 0 06/04/19 11:30 Intake & Output 06/03/19 06/04/19 06/04/19 23:59 11:59 23:59 Intake Total 940 / 1955 Output Total 1250 / 2450 1999 Balance -310 / -495 -1999 Weight 104.5 kg Intake: Oral 940 / 1930 Output: Urine 650 / 1750 1750 / 1750 Stool 600 / 700 250 / 250 Other: Urine Color Yellow Pale Straw Straw Urine Appearance Cloudy Clear Comment pre lasix Stool Occult Blood Negative Stool Characteristics Soft Liquid Brown Data Completed and Pending Labs on day of discharge: Labs from last 24 hours 06/04/19 06/02/19 06:45 15:30 Sodium 143 Potassium 3.1 L Chloride 100 Carbon Dioxide 42.0 H Anion Gap 1.0 L BUN 79 H Creatinine 2.53 H Estimated GFR/1.73 m2 26.11 Glucose 164 H D Calcium 8.3 L Coronavirus (PCR) Not detected [facility] Medical History (Updated 06/02/19 @ 17:31 by Pablo Cobb) Acromegaly (Chronic) Acute on chronic kidney failure (Resolved) Adrenal insufficiency (Chronic) Ambulatory dysfunction (Chronic) Anemia (Chronic) Atrial flutter, paroxysmal (Chronic) Back pain (Chronic 06/21/13) CAD (coronary artery disease) (Chronic) Cardiopulmonary arrest with successful resuscitation (Resolved) Cholelithiasis (Chronic) Chronic anxiety (Chronic) Chronic bipolar disorder (Chronic) a. With history of psychosis. Chronic cholecystitis (Chronic) Chronic insomnia (Chronic) Chronic pain (Chronic) On both Methadone and Fentanyl as well as Ultram and Naproxen. CKD (chronic kidney disease) (Chronic) Complicated UTI (urinary tract infection) (Resolved) Diabetes mellitus (Chronic) Diabetic foot ulcer (Chronic) Diabetic ulcer of toe associated with diabetes mellitus due to underlying condition, with bone involvement without evidence of necrosis (Inactive) 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 (Resolved) Dyslipidemia (Chronic) Elevated troponin I level (Resolved) Endocarditis due to Staphylococcus (Resolved) Heme positive stool (Resolved) Hemorrhagic cystitis (Chronic) Hyperkalemia (Resolved) Hypertension (Chronic) Hypomagnesemia (Chronic) Hypothyroidism (Chronic) Impaired mobility and ADLs (Chronic) Inability to get out of bed (Chronic 06/21/13) Lactic acidosis (Resolved) MRSA bacteremia (Resolved) Obesity (Chronic) a. Obesity though he has had significant weight loss since last seen. Osteoarthritis of both knees (Chronic) Severe. a. [id number] bilateral knees. 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 2 diabetes mellitus (Resolved) Palliative care encounter (Chronic) DObbertin Pedal edema (Chronic) Poor self care (Chronic 06/21/13) Poorly controlled type 2 diabetes mellitus with circulatory disorder (Chronic) Presence of IVC filter (Acute) Pulmonary hypertension (Chronic) Rheumatoid arthritis (Chronic) Sepsis (Resolved) Septic arthritis of elbow, right (Inactive) Toxic metabolic encephalopathy (Resolved) Toxic metabolic encephalopathy (Resolved) Ulcerative colitis (Chronic) UTI (urinary tract infection) (Resolved) UTI (urinary tract infection) due to Enterococcus (Resolved) Surgical History Arthroplasty of knee (Resolved 03/18/12) irrigation and lavage right Fracture, Open Treatment (Resolved) 06/06/17-[facility] S/P ORIF RIGHT DISTAL HUMERUS FRACTURE History of insertion of T-tube into biliary tract (Chronic) S/P colectomy (Chronic) Social History (Updated 06/02/19 @ 16:54 by Pablo Cobb) Smoking/Tobacco Use Status: Former Tobacco Use Alcohol Intake: former Drug use: Rarely Substance use type: marijuana Housing: long term Do you feel safe at home: Yes Do you feel safe in your relationship?: Yes Additional Social history: Living at [facility] – [place]
--- NOTE | 2019-06-04 14:59 | PDOC.CMDIS ---
- If Service Date Differs Date of service: 06/04/19 Time of Service: 14:59 LACE Index Scoring Tool - Questions: Length of Stay (in days): 3 Acuity (Admit via E.D.?): Yes Comorbidities: Diabetes w/o Complication, Congestive Heart Failure, Liver or Renal Disease E.D. Visits: 14 - Answers: Total Score: 15 Risk of Readmission: High Risk Care Management Discharge Reason for Hospitalization: Acute respiratory distress Discharge Plan: Brendan returned to the [facility] today where he is a intermediate resident. He transported via [employer] w/c van, coordinated by KATELYN. CM contacted the [facility], alerting them of the discharge plan, and they agreed to accept him back. He is agreeable to the plan. Patient/Family Education Needs: Review discharge instructions regarding activity levels and medications, discussion of self care needs including ask me three Services Needed at Discharge: Assisted Facility, Transportation
== END 2019-06-04 14:23 | disposition skilled nursing facility (03) | DRG 291 ==
LOC: ER 12:22 → RCU 14:47 → MS 06-04 11:16
PROVIDERS: Admitting Provider Family Medicine; Emergency Provider Emergency Medicine; PCP Family Medicine; Visit Provider Family Medicine
DX: I50.33 Acute on chronic diastolic (congestive) heart failure (principal); J96.02 Acute respiratory failure with hypercapnia; J96.01 Acute respiratory failure with hypoxia; N17.9 Acute kidney failure, unspecified; E27.40 Unspecified adrenocortical insufficiency; I13.0 Hypertensive heart and chronic kidney disease with heart failure and stage 1 through stage 4 chronic kidney disease, or unspecified chronic kidney disease; F31.89 Other bipolar disorder; I48.92 Unspecified atrial flutter; N18.9 Chronic kidney disease, unspecified; E03.9 Hypothyroidism, unspecified; E11.22 Type 2 diabetes mellitus with diabetic chronic kidney disease; J44.9 Chronic obstructive pulmonary disease, unspecified; B37.2 Candidiasis of skin and nail; Z79.4 Long term (current) use of insulin; Z93.3 Colostomy status
CPT/HCPCS: 36415; 51702; 80048; 80053; 82805; 87081; 93005; 96374; 96375; 99223; 99233; 99239; 99285; U0003; 36600; 71045; 83735; 83880; 84484; 85025; 85610; 93010; 94660; J1940; J2930; J3490; J7512

== ENCOUNTER 2019-06-07 09:41 | Outpatient (REF) | payer MEDICARE, MEDICAID, SELFPAY ==
[2019-06-07 10:04] LABS: Abs Immature Grans 0.01 k/cumm (0.0-0.09); Absolute Basophil Count 0.01 k/cumm (0.0-0.2); Absolute Lymphocyte Count 1.15 k/cumm (1.2-3.4); Absolute Monocyte Count 0.64 k/cumm (0.11-0.7); Absolute Neutrophil Count 6.66 k/cumm (1.2-6.7); Basophils % 0.1; Eosinophils % 2.3; HGB 10.2 g/dL (13.5-17.5); Immature Grans % 0.1 %; Lymphocytes % 13.3; Mean Corp. HGB Concentration 26.2 g/dL (32.0-36.0); Mean Corpuscular Hemoglobin 22.5 pg (27.0-33.0); Mean Corpuscular Volume 86.1 fL (80-95); Monocytes % 7.4; Neutrophils % 76.8; RBC 4.53 m/cumm (4.50-6.00); RBC Distribution Width 18.5 % (11.8-14.1); White Blood Cell Count 8.67 k/cumm (4.4-10.8)
[2019-06-07 10:19] LABS: Magnesium 1.9 mg/dL (1.8-2.4); NT-proBNP 2614 pg/mL (<300)
[2019-06-07 10:31] LABS: Platelet Count 201 x1000/uL (130-400)
[2019-06-07 10:32] LABS: Anisocytosis 2+; Diff Comment RBC Morph Reviewed; Hypochromasia 2+; Microcytosis 1+; Polychromasia Present
[2019-06-07 10:36] LABS: Poikilocytes 2+
[2019-06-07 11:47] LABS: Anion Gap 2.3 mmol/L (3-11); BUN 64 mg/dL (7-18); CO2 40.7 mmol/L (21.0-32.0); CREATININE 2.05 mg/dL (0.70-1.30); Calcium 8.5 mg/dL (8.5-10.1); Chloride 105 mmol/L (98-107); Estimated GFR 33.29 (mL/min/1.73m2); Glucose 112 mg/dL (74-106); Potassium 3.8 mmol/L (3.5-5.1); Sodium 148 mmol/L (136-145)
== END 2019-06-07 10:01 ==
LOC: LBN 09:41
PROVIDERS: PCP Family Medicine; Visit Provider Family Medicine
DX: I50.9 Heart failure, unspecified (principal)
CPT/HCPCS: 80048; 83735; 83880; 85025

== ENCOUNTER 2019-06-07 15:38 | Inpatient (IN) | payer MEDICARE, MEDICAID, SELFPAY ==
[2019-06-07] VITALS (53 sets, daily range): BP systolic 104–135; BP diastolic 52–98; PULSE 73–152; RESP 5–48; TEMP 38–39.3; O2SAT 77–100
--- NOTE | 2019-06-07 15:45 | DI.RAD_ITS ---
EXAM: XR PORTABLE CHEST AP CLINICAL HISTORY: shortness of breath TECHNIQUE: 2D digital imaging was performed. COMPARISON: XR PORTABLE CHEST AP from 06/02/2019 FINDINGS: MEDIASTINUM: Normal. HEART: Cardiomegaly. PULMONARY VASCULATURE: Prominence of the pulmonary vasculature. LUNGS: Bilateral interstitial infiltrates. PLEURAL SPACE: No pleural effusion or pneumothorax. BONE:No acute abnormality. OTHER FINDINGS:The patient's head obscures the lung apices. IMPRESSION: Mild bilateral interstitial infiltrates which may represent interstitial edema or pneumonia. Cardiomegaly. DATA REPOSITORY: RADIATION DOSE DELIVERED:
--- NOTE | 2019-06-07 15:47 | ED.GENADUL_ITS ---
Discharge Plan Disposition Patient Disposition: [facility] INPATIENT Condition: Poor Discharge Details Chief Complaint: AMS/LOC Clinical Impression: Respiratory failure, HCAP (healthcare-associated pneumonia) Primary Care Provider: Lou Maldonado ED Provider: Hemanth Olivia [place] Meds and New Rx's Prescriptions: No Action cyanocobalamin (vitamin B-12) 1,000 mcg Tablet 1,000 mcg PO DAILY RF: 0 ferrous sulfate 325 mg (65 mg iron) Tablet 325 mg PO BID Qty: 0 RF: 0 ascorbic acid (vitamin C) [Vitamin C] 250 mg Tablet 1 tab PO BID RF: 0 Centrum Complete 18-400 mg-mcg Tablet 1 tab PO DAILY RF: 0 insulin aspart U-100 [Novolog Flexpen U-100 Insulin] 100 unit/mL Insulin Pen See Rx Instructions .ROUTE .COMPLEX Qty: 15 RF: 0 pantoprazole 40 mg Tablet,Delayed Release (Dr/Ec) 40 mg PO DAILY Qty: 60 RF: 0 melatonin 3 mg Tablet Extended Release 6 mg PO HS Qty: 30 RF: 0 calcium carbonate-vitamin D3 [Calcium 500 + D] 500 mg(1,250mg) -400 unit Tablet 1 tab PO BID RF: 0 acetaminophen [Tylenol] 325 mg tablet 1,000 mg PO TID RF: 0 gabapentin 100 mg capsule 300 mg PO TID RF: 0 risperidone [Risperdal] 2 mg tablet 2 mg PO HS RF: 0 vitamin B complex 100 2-herbs 100 mg Tablet 1 tab PO DAILY RF: 0 Enrique 7-7-1.5 gram Powder In Packet 1 packet PO BID RF: 0 Combivent Respimat 20-100 mcg/actuation Mist 1 puff INHALATION Q6H PRNRF: 0 acidophilus-pectin, citrus 25 million cell -100 mg tablet 1 cap PO DAILY RF: 0 insulin lispro [Humalog KwikPen Insulin] 100 unit/mL Insulin Pen 0 unit SUBCUT AC RF: 0 prednisone 5 mg Tablet 15 mg PO DAILY RF: 0 nystatin 100,000 unit/gram Powder 0 g topical BID Qty: 0 RF: 0 sodium bicarbonate 650 mg Tablet 650 mg PO BID Qty: 90 RF: 0 potassium bicarb-citric acid 20 mEq tablet, effervescent 20 meq PO DAILY Qty: 30 RF: 0 terazosin 2 mg Capsule 4 mg PO BID Qty: 0 RF: 0 magnesium chloride [Mag 64] 64 mg Tablet,Delayed Release (Dr/Ec) 64 mg PO BID Qty: 0 RF: 0 venlafaxine [Effexor XR] 37.5 mg Capsule,Extended Release 24hr 37.5 mg PO DAILY RF: 0 Zyrtec 10 mg Capsule 10 mg PO DAILY RF: 0 amlodipine 5 mg tablet 10 mg PO DAILY RF: 0 levothyroxine 25 mcg tablet 12.5 mcg PO HS RF: 0 Lantus Solostar U-100 Insulin 100 unit/mL (3 mL) insulin pen 40 unit subcut BID RF: 0 insulin aspart U-100 100 unit/mL (3 mL) insulin pen 10 unit SC AC Qty: 15 RF: 0 metoprolol tartrate 25 mg Tablet 25 mg PO BID RF: 0 clonidine HCl [Catapres] 0.1 mg tablet 0.1 mg PO TID Qty: 0 RF: 0 Eliquis 5 mg Tablet 2.5 mg PO BID Qty: 60 RF: 0 lorazepam [Ativan] 1 mg Tablet 1 mg PO Q8H PRNRF: 0 furosemide [Lasix] 40 mg tablet 100 mg PO BID RF: 0 CertaVite Senior-Antioxidant 0.4-300-250 mg-mcg-mcg Tablet 1 tab PO QAM RF: 0 Medical Decision Making 59 yo male with multiple medical problems with multiple admissions in the past primarily from respiratory failure secondary to not waering cpap as directed and chf, just d/c'd to the [facility] on 06/03 comes in after he has had a decrease in mental status. HE apparently was awake and talking this morning but then slowly started to have less response and on arrival to the ED he groans to painful stimuli otherwise doesn't talk, does withdraw to pain, PERRL. He had a temp of 100.2 with ems otherwise no other known fevers. He has diminished breath sounds at the bases bilaterally, no significant edema of the legs. Will place on cpap, give duoneb, steroids and also obtain labs and ekg and monitor. pt's mental status improved, now opens eyes to verbal stimuli and will nod and shake head to questions. Has leukocytosis, otherwise stable lab values other than pco2 initially 90 now down to 70. Xray showing opacities and given fever will tx with vanc/zosyn. Spoke with Dr. Fragoso who will admit the patient Differential Diagnosis Differential Diagnosis: copd, hypercapnea, pna, influenza, covid 19 Medical Records Medical records reviewed: Yes I reviewed the patient's medical records. Imaging Data Radiologic Study: Attestation: I personally reviewed and interpreted this imaging study as follows: Radiologist's impression: IMPRESSION: Mild opacities in the bases may represent atelectasis or pneumonia. Lab Data Lab results reviewed: Yes I reviewed the patient's lab results. ECG Data Attestation: I personally reviewed and interpreted this ECG (s) as follows: Prior ECG tracings: not available for review Interpretation: some artifact but has sinus rhythm, rate of 102 pr 162 qt c 448 HPI General Mode of arrival: ambulatory . Date/Time Provider Initiated Documentation: 06/07/19 15:45 . Limitations to Documentation: no limitations . Information obtained by: patient . History of Present Illness 59 year old M presents to the emergency department with the chief complaint of altered mental status, Patient reports no radiation. Patient started experiencing this hour(s) (2) and it has been constant. No relieving factors improve symptom(s), No exacerbating factors reported . Patient did receive the following treatments prior to arrival, none Related Data Home Medications Medication Instructions Recorded Confirmed cyanocobalamin (vitamin B-12) 1,000 mcg PO DAILY 12/23/17 05/17/19 ferrous sulfate 325 mg PO BID #0 tab 12/31/17 06/07/19 magnesium chloride [Mag 64] 64 mg PO BID #0 tab 02/10/18 06/07/19 terazosin 4 mg PO BID #0 cap 02/10/18 06/07/19 Centrum Complete 1 tab PO DAILY 03/01/18 06/02/19 ascorbic acid (vitamin C) [Vitamin 1 tab PO BID 03/01/18 06/07/19 C] insulin aspart U-100 [Novolog See Rx Instructions .ROUTE 06/19/18 05/17/19 Flexpen U-100 Insulin] .COMPLEX #15 ml melatonin 6 mg PO HS #30 tab 06/19/18 06/02/19 pantoprazole 40 mg PO DAILY #60 tab 06/19/18 06/02/19 calcium carbonate-vitamin D3 1 tab PO BID 07/09/18 06/02/19 [Calcium 500 + D] venlafaxine [Effexor XR] 112.5 mg PO DAILY 10/23/18 06/02/19 acetaminophen [Tylenol] 1,000 mg PO TID 01/08/19 06/07/19 gabapentin 300 mg PO TID 01/08/19 06/07/19 Zyrtec 10 mg PO DAILY 02/23/19 06/02/19 amlodipine 10 mg PO DAILY 02/26/19 06/07/19 levothyroxine 12.5 mcg PO HS 02/26/19 06/02/19 Lantus Solostar U-100 Insulin 40 unit SUBCUT BID 03/15/19 06/07/19 insulin aspart U-100 10 unit SC AC #15 ml 03/19/19 05/01/19 metoprolol tartrate 25 mg PO BID 05/01/19 06/07/19 Eliquis 2.5 mg PO BID #60 tab 05/20/19 06/07/19 clonidine HCl [Catapres] 0.1 mg PO TID #0 tab 05/20/19 06/07/19 Combivent Respimat 1 puff INHALATION Q6H PRN 06/02/19 06/07/19 Enrique 1 packet PO BID 06/02/19 06/07/19 acidophilus-pectin, citrus 1 cap PO DAILY 06/02/19 06/07/19 insulin lispro [Humalog KwikPen 0 unit SUBCUT AC 06/02/19 06/02/19 Insulin] prednisone 15 mg PO DAILY 06/02/19 06/02/19 risperidone [Risperdal] 2 mg PO HS 06/02/19 06/02/19 vitamin B complex 100 2-herbs 1 tab PO DAILY 06/02/19 06/02/19 nystatin 0 g TOPICAL BID #0 g 06/04/19 potassium bicarb-citric acid 20 meq PO DAILY #30 tab 06/04/19 06/07/19 sodium bicarbonate 650 mg PO BID #90 tab 06/04/19 06/07/19 furosemide [Lasix] 100 mg PO BID 06/07/19 06/07/19 lorazepam [Ativan] 1 mg PO Q8H PRN 06/07/19 06/07/19 [id number]-[id number]-JI-lycopen-lutein 1 tab PO QAM 06/07/19 06/07/19 [CertaVite Senior-Antioxidant] Previous Rx's Medication Instructions Recorded ferrous sulfate 325 mg PO BID #0 tab 12/31/17 magnesium chloride [Mag 64] 64 mg PO BID #0 tab 02/10/18 terazosin 4 mg PO BID #0 cap 02/10/18 insulin aspart U-100 [Novolog See Rx Instructions .ROUTE 06/19/18 Flexpen U-100 Insulin] .COMPLEX #15 ml melatonin 6 mg PO HS #30 tab 06/19/18 pantoprazole 40 mg PO DAILY #60 tab 06/19/18 insulin aspart U-100 10 unit SC AC #15 ml 03/19/19 Eliquis 2.5 mg PO BID #60 tab 05/20/19 clonidine HCl [Catapres] 0.1 mg PO TID #0 tab 05/20/19 nystatin 0 g TOPICAL BID #0 g 06/04/19 potassium bicarb-citric acid 20 meq PO DAILY #30 tab 06/04/19 sodium bicarbonate 650 mg PO BID #90 tab 06/04/19 Allergies Allergy/AdvReac Type Severity Reaction Status Date / Time lisinopril Allergy Unverified 06/02/19 10:44 General YVES: 2 Review of Systems All systems reviewed & are unremarkable except as noted in HPI and below [facility] Medical History (Updated 06/07/19 @ 17:15 by Hemanth Olivia MD) Acromegaly (Chronic) Acute on chronic kidney failure (Resolved) Adrenal insufficiency (Chronic) Ambulatory dysfunction (Chronic) Anemia (Chronic) Atrial flutter, paroxysmal (Chronic) Back pain (Chronic 06/21/13) CAD (coronary artery disease) (Chronic) Cardiopulmonary arrest with successful resuscitation (Resolved) Cholelithiasis (Chronic) Chronic anxiety (Chronic) Chronic bipolar disorder (Chronic) a. With history of psychosis. Chronic cholecystitis (Chronic) Chronic insomnia (Chronic) Chronic pain (Chronic) On both Methadone and Fentanyl as well as Ultram and Naproxen. CKD (chronic kidney disease) (Chronic) Complicated UTI (urinary tract infection) (Resolved) Diabetes mellitus (Chronic) Diabetic foot ulcer (Chronic) Diabetic ulcer of toe associated with diabetes mellitus due to underlying condition, with bone involvement without evidence of necrosis (Inactive) 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 (Resolved) Dyslipidemia (Chronic) Elevated troponin I level (Resolved) Endocarditis due to Staphylococcus (Resolved) Heme positive stool (Resolved) Hemorrhagic cystitis (Chronic) Hyperkalemia (Resolved) Hypertension (Chronic) Hypomagnesemia (Chronic) Hypothyroidism (Chronic) Impaired mobility and ADLs (Chronic) Inability to get out of bed (Chronic 06/21/13) Lactic acidosis (Resolved) MRSA bacteremia (Resolved) Obesity (Chronic) a. Obesity though he has had significant weight loss since last seen. Osteoarthritis of both knees (Chronic) Severe. a. [id number] bilateral knees. 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 2 diabetes mellitus (Resolved) Palliative care encounter (Chronic) DObbertin Pedal edema (Chronic) Poor self care (Chronic 06/21/13) Poorly controlled type 2 diabetes mellitus with circulatory disorder (Chronic) Presence of IVC filter (Acute) Pulmonary hypertension (Chronic) Rheumatoid arthritis (Chronic) Sepsis (Resolved) Septic arthritis of elbow, right (Inactive) Toxic metabolic encephalopathy (Resolved) Toxic metabolic encephalopathy (Resolved) Ulcerative colitis (Chronic) UTI (urinary tract infection) (Resolved) UTI (urinary tract infection) due to Enterococcus (Resolved) Surgical History Arthroplasty of knee (Resolved 03/18/12) irrigation and lavage right Fracture, Open Treatment (Resolved) 06/06/17[facility] [place] S/P ORIF RIGHT DISTAL HUMERUS FRACTURE History of insertion of T-tube into biliary tract (Chronic) S/P colectomy (Chronic) Social History (Updated 06/02/19 @ 16:54 by Pablo Cobb) Smoking/Tobacco Use Status: Former Tobacco Use Alcohol Intake: former Drug use: Rarely Substance use type: marijuana Housing: group home Do you feel safe at home: Yes Do you feel safe in your relationship?: Yes Additional Social history: Living at [facility] in [place] Exam Const General: lethargic Orientation: alert HENNE Head: normal to inspection Ears: external ears normal General nose exam: external nose normal Mouth: moist mucous membranes Eyes General: appearance normal, both eyes and all related structures Neck Neck: normal visual inspection Resp Effort & Inspection: prolonged expiratory phase Cardio Rate: regular rate Skin General skin exam: no rashes or lesions noted Neuro General: patient obtunded Extrem General: normal to inspection Course Lab/Test Results Lab/Test Results: 06/07/19 15:37 Blood Blood Culture - Pending 06/07/19 15:37 Blood Blood Culture - Pending
[2019-06-07 16:03] LABS: HCO3 (Venous) 45 mmol/L (22-28); O2 Sat (Venous) 83 % (70-80); TCO2 (Venous) 43 mmol/L (22-29); pCO2 (Venous) 97 mm/Hg (34-47); pH (Venous) 7.27 (7.35-7.45); pO2 (Venous) 50 mm/Hg (28-44)
[2019-06-07 16:04] LABS: BE (Venous) > 15.0 mmol/L (-3-3)
[2019-06-07 16:05] LABS: Abs Immature Grans 0.01 k/cumm (0.0-0.09); Absolute Basophil Count 0.01 k/cumm (0.0-0.2); Absolute Eosinophil Count 0.22 k/cumm (0.0-0.7); Absolute Monocyte Count 0.86 k/cumm (0.11-0.7); Basophils % 0.1; Eosinophils % 1.6; HCT 38.9 % (40.0-50.0); HGB 9.9 g/dL (13.5-17.5); Immature Grans % 0.1 %; Lymphocytes % 1.9; Mean Corp. HGB Concentration 25.4 g/dL (32.0-36.0); Mean Corpuscular Volume 86.6 fL (80-95); Mean Platelet Volume 10.6 fL (8.0-11.0); Monocytes % 6.4; Neutrophils % 89.9; Platelet Count 265 x1000/uL (130-400); RBC 4.49 m/cumm (4.50-6.00); RBC Distribution Width 18.1 % (11.8-14.1); White Blood Cell Count 13.47 k/cumm (4.4-10.8)
[2019-06-07 16:06] LABS: Absolute Lymphocyte Count 0.26 k/cumm (1.2-3.4); Absolute Neutrophil Count 12.11 k/cumm (1.2-6.7)
[2019-06-07] MEDS: methylPREDNISolone SUCC 125 MG VIAL IVP (16:08)
[2019-06-07] MEDS: Normal Saline Flush 10 ML SYR IVP (16:10)
[2019-06-07 16:20] LABS: INR 1.1 (0.9-1.1); PTT Activated 23.4 sec (21.0-31.4); Prothrombin Time 10.7 sec (9.3-11.0)
[2019-06-07 16:25] LABS: Anisocytosis 2+; Basophilic Stippling 1+; C-Reactive Protein 10.62 mg/dL (0.0-0.3); Hypochromasia 3+; LDH 270 U/L (85-227); Microcytosis 1+; Polychromasia Present; Tear Drop Cells 2+
[2019-06-07 16:26] LABS: Poikilocytes 2+; Stomatocytes 3+
[2019-06-07] MEDS: Albuterol/Ipratropium 3 ML UPD VIAL UPD (16:28)
[2019-06-07 16:29] LABS: ALT 18 U/L (16-63); AST 27 U/L (15-37); Albumin 2.9 g/dL (3.4-5.0); Alkaline Phosphatase 94 U/L (46-116); Anion Gap -2.4 mmol/L (3-11); BUN 62 mg/dL (7-18); Bilirubin, Total 0.8 mg/dL (0.2-1.0); CO2 43.4 mmol/L (21.0-32.0); CREATININE 2.13 mg/dL (0.70-1.30); Calcium 8.8 mg/dL (8.5-10.1); Chloride 106 mmol/L (98-107); Estimated GFR 31.85 (mL/min/1.73m2); Glucose 132 mg/dL (74-106); Magnesium 1.9 mg/dL (1.8-2.4); NT-proBNP 3144 pg/mL (<300); Potassium 4.4 mmol/L (3.5-5.1); Sodium 147 mmol/L (136-145); Total Protein 7.1 g/dL (6.4-8.2); Troponin I < 0.05 ng/Ml (<0.06)
[2019-06-07 16:30] LABS: Bilirubin Negative (Negative); Blood Moderate (Negative); Clarity Cloudy (Clear); Glucose Negative (Negative); Ketones Negative (Negative); Leukocyte Esterase Large (Negative); Nitrite Positive (Negative); Specific Gravity 1.015 (1.005-1.025); Urobilinogen 0.2 EU/dL (Up TO 0.2)
--- NOTE | 2019-06-07 16:34 | DI.VRAD_ITS ---
PROCEDURE INFORMATION: Exam: XR Chest, 1 View Exam date and time: 06/07/2019 4:03 PM Age: 59 years old Clinical indication: Other: Ams/loc; SOB; Pui patient TECHNIQUE: Imaging protocol: XR of the chest Views: 1 view. COMPARISON: CR XR PORTABLE CHEST AP 06/02/2019 11:08 AM FINDINGS: Lungs: Mild opacities in the bases may represent atelectasis or pneumonia. Pleural space: Unremarkable. No pleural effusion. No pneumothorax. Heart/Mediastinum: Cardiomegaly The patient's head is flexed anteriorly, obscuring the apices Bones/joints: Stable Other findings: Overlying EKG wires IMPRESSION: Mild opacities in the bases may represent atelectasis or pneumonia. Dictated and Authenticated by: Mike Whitlock MD. Ordering:MAX Saxena MD
[2019-06-07 16:38] LABS: Procalcitonin 1.6 ng/mL
[2019-06-07 16:39] LABS: Bacteria Packed HPF (Negative); Epithelial Cells Negative HPF (Negative); WBC >50 HPF (0-5)
[2019-06-07 16:40] LABS: C & S Indicated? Yes
[2019-06-07 16:52] LABS: Ferritin 106 ng/mL (26-388)
[2019-06-07] MEDS: PIPERACILLIN/TAZO 4.5 GM in Normal Saline 100 ML IVPB (16:55)
[2019-06-07 16:57] LABS: HCO3 (Venous) 44 mmol/L (22-28); O2 Sat (Venous) 74 % (70-80); TCO2 (Venous) 41 mmol/L (22-29); pCO2 (Venous) 76 mm/Hg (34-47); pH (Venous) 7.37 (7.35-7.45); pO2 (Venous) 38 mm/Hg (28-44)
[2019-06-07 16:59] LABS: BE (Venous) > 15.0 mmol/L (-3-3)
[2019-06-07] MEDS: VANCOMYCIN 1,000 MG in Normal Saline 250 ML 166.6666 MG IVPB (17:28)
--- NOTE | 2019-06-07 17:30 | W.PM.HP.N ---
Date of service: 06/07/19 Time of Service: 17:31 Assessment and Plan Assessment and plan (1) Fever: Status: Acute Assessment and plan: Fever with multifactorial respiratory insufficiency, and pneumonia vs UTI. Will continue antibiotics, steroids , updrafts and BiPAP. Doubt COVID, no report of cases at facility, but will await results. History of Present Illness History of Present Illness Chief Complaint: lethargy Narrative: 59 male with multiple problems, including COPD, CHF and hypoventilation. Sent for altered mental status. In ER findings of note for fever, obtundation, venous pCO2 97, white count 13.7 and CXR with bibasilar opacities (pneumonia vs atelectasis, as well as pyuria. Given Vanco, Zosyn, steroids and Duoneb with improvement in level of alertness and decrease pCO2 to 76. Flu and COVID swabs obtained, admitted for further management. Review of Systems Unobtainable due to mental status [facility] Medical History Acromegaly (Chronic) Acute on chronic kidney failure (Resolved) Adrenal insufficiency (Chronic) Ambulatory dysfunction (Chronic) Anemia (Chronic) Atrial flutter, paroxysmal (Chronic) Back pain (Chronic 06/21/13) CAD (coronary artery disease) (Chronic) Cardiopulmonary arrest with successful resuscitation (Resolved) Cholelithiasis (Chronic) Chronic anxiety (Chronic) Chronic bipolar disorder (Chronic) a. With history of psychosis. Chronic cholecystitis (Chronic) Chronic insomnia (Chronic) Chronic pain (Chronic) On both Methadone and Fentanyl as well as Ultram and Naproxen. CKD (chronic kidney disease) (Chronic) Complicated UTI (urinary tract infection) (Resolved) Diabetes mellitus (Chronic) Diabetic foot ulcer (Chronic) Diabetic ulcer of toe associated with diabetes mellitus due to underlying condition, with bone involvement without evidence of necrosis (Inactive) 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 (Resolved) Dyslipidemia (Chronic) Elevated troponin I level (Resolved) Endocarditis due to Staphylococcus (Resolved) Heme positive stool (Resolved) Hemorrhagic cystitis (Chronic) Hyperkalemia (Resolved) Hypertension (Chronic) Hypomagnesemia (Chronic) Hypothyroidism (Chronic) Impaired mobility and ADLs (Chronic) Inability to get out of bed (Chronic 06/21/13) Lactic acidosis (Resolved) MRSA bacteremia (Resolved) Obesity (Chronic) a. Obesity though he has had significant weight loss since last seen. Osteoarthritis of both knees (Chronic) Severe. a. [id number] bilateral knees. 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 2 diabetes mellitus (Resolved) Palliative care encounter (Chronic) DObbertin Pedal edema (Chronic) Poor self care (Chronic 06/21/13) Poorly controlled type 2 diabetes mellitus with circulatory disorder (Chronic) Presence of IVC filter (Acute) Pulmonary hypertension (Chronic) Rheumatoid arthritis (Chronic) Sepsis (Resolved) Septic arthritis of elbow, right (Inactive) Toxic metabolic encephalopathy (Resolved) Toxic metabolic encephalopathy (Resolved) Ulcerative colitis (Chronic) UTI (urinary tract infection) (Resolved) UTI (urinary tract infection) due to Enterococcus (Resolved) Surgical History Arthroplasty of knee (Resolved 03/18/12) irrigation and lavage right Fracture, Open Treatment (Resolved) 06/06/17-[facility] [place] S/P ORIF RIGHT DISTAL HUMERUS FRACTURE History of insertion of T-tube into biliary tract (Chronic) S/P colectomy (Chronic) Social History Smoking/Tobacco Use Status: Former Tobacco Use Alcohol Intake: former Drug use: Rarely Substance use type: marijuana Housing: senior living Do you feel safe at home: Yes Do you feel safe in your relationship?: Yes Additional Social history: Living at [facility] Medications and Allergies Home Medications Medication Instructions Recorded Confirmed Type cyanocobalamin (vitamin B-12) 1,000 mcg PO DAILY 12/23/17 06/07/19 History ferrous sulfate 325 mg PO BID #0 tab 12/31/17 06/07/19 Rx magnesium chloride [Mag 64] 64 mg PO BID #0 tab 02/10/18 06/07/19 Rx terazosin 4 mg PO BID #0 cap 02/10/18 06/07/19 Rx Centrum Complete 1 tab PO DAILY 03/01/18 06/02/19 History ascorbic acid (vitamin C) [Vitamin 1 tab PO BID 03/01/18 06/07/19 History C] insulin aspart U-100 [Novolog See Rx Instructions .ROUTE 06/19/18 05/17/19 Rx Flexpen U-100 Insulin] .COMPLEX #15 ml melatonin 6 mg PO HS #30 tab 06/19/18 06/07/19 Rx pantoprazole 40 mg PO DAILY #60 tab 06/19/18 06/07/19 Rx calcium carbonate-vitamin D3 1 tab PO BID 07/09/18 06/07/19 History [Calcium 500 + D] venlafaxine [Effexor XR] 112.5 mg PO DAILY 10/23/18 06/07/19 History acetaminophen [Tylenol] 1,000 mg PO TID 01/08/19 06/07/19 History gabapentin 300 mg PO TID 01/08/19 06/07/19 History Zyrtec 10 mg PO DAILY 02/23/19 06/07/19 History amlodipine 10 mg PO DAILY 02/26/19 06/07/19 History levothyroxine 12.5 mcg PO HS 02/26/19 06/07/19 History Lantus Solostar U-100 Insulin 40 - 55 unit SUBCUT DIRECTED 03/15/19 06/07/19 History insulin aspart U-100 10 unit SC AC #15 ml 03/19/19 05/01/19 Rx metoprolol tartrate 25 mg PO BID 05/01/19 06/07/19 History Eliquis 2.5 mg PO BID #60 tab 05/20/19 06/07/19 Rx clonidine HCl [Catapres] 0.1 mg PO TID #0 tab 05/20/19 06/07/19 Rx Combivent Respimat 1 puff INHALATION Q6H PRN 06/02/19 06/07/19 History Enrique 1 packet PO BID 06/02/19 06/07/19 History acidophilus-pectin, citrus 1 cap PO DAILY 06/02/19 06/07/19 History insulin lispro [Humalog KwikPen 0 unit SUBCUT AC 06/02/19 06/07/19 History Insulin] prednisone 15 mg PO DAILY 06/02/19 06/02/19 History risperidone [Risperdal] 2 mg PO HS 06/02/19 06/07/19 History vitamin B complex 100 2-herbs 1 tab PO DAILY 06/02/19 06/07/19 History nystatin 0 g TOPICAL BID #0 g 06/04/19 Rx potassium bicarb-citric acid 20 meq PO DAILY #30 tab 06/04/19 06/07/19 Rx sodium bicarbonate 650 mg PO BID #90 tab 06/04/19 06/07/19 Rx Duoneb 3 ml INHALATION PRN PRN 06/07/19 History furosemide [Lasix] 80 - 100 mg PO BID 06/07/19 06/07/19 History lorazepam [Ativan] 1 mg PO Q8H PRN 06/07/19 06/07/19 History cujofchy-vop-YQ-lycopen-lutein 1 tab PO QAM 06/07/19 06/07/19 History [CertaVite Senior-Antioxidant] Allergies Allergy/AdvReac Type Severity Reaction Status Date / Time lisinopril Allergy Unverified 06/02/19 10:44 Exam Narrative Exam Narrative: 131/87, 93, 22, 39.1. 92% on BiPAP. HEENT AT/NC; neck supple; lungs diminished BS; heart distant RRR; abdomen soft and NT; extremities chronic lympedema with stasis changes, 2-3 mm ulcer overlying metatarsal 5 on left, without d/c Results Labs Result diagrams: 06/07/19 15:50 06/07/19 15:50 Labs: Laboratory Results - last 24 hr 06/07/19 06/07/19 06/07/19 15:50 15:50 15:50 WBC 13.47 H D RBC 4.49 L Hgb 9.9 L Hct 38.9 L MCV 86.6 MCH 22.0 L MCHC 25.4 L RDW 18.1 H Plt Count 265 MPV 10.6 Immature Gran % 0.1 Neutrophils % 89.9 Lymphocytes % 1.9 Monocytes % 6.4 Eosinophils % 1.6 Basophils % 0.1 Absolute Neutrophils 12.11 H Absolute Lymphocytes 0.26 L Absolute Monocytes 0.86 H Absolute Eosinophils 0.22 Absolute Basophils 0.01 RBC Morphology See below Polychromasia Present Hypochromasia 3+ Poikilocytosis 2+ Basophilic Stippling 1+ Anisocytosis 2+ Microcytosis 1+ Tear Drop Cells 2+ Stomatocytes 3+ PT INR APTT VBG pH 7.27 L VBG pCO2 97 H* VBG pO2 50 H VBG HCO3 45 H VBG Total CO2 43 H VBG O2 Saturation 83 H VBG Base Excess > 15.0 H Sodium 147 H Potassium 4.4 Chloride 106 Carbon Dioxide 43.4 H Anion Gap -2.4 L BUN 62 H Creatinine 2.13 H Estimated GFR/1.73 m2 31.85 Glucose 132 H Calcium 8.8 Magnesium 1.9 Ferritin Total Bilirubin 0.8 AST 27 ALT 18 Alkaline Phosphatase 94 Lactate Dehydrogenase Troponin I < 0.05 C-Reactive Protein NT-Pro-B Natriuret Pep 3144 H Total Protein 7.1 Albumin 2.9 L Procalcitonin Urine Color Urine Clarity Urine pH Ur Specific [place] Urine Protein Urine Ketones Urine Blood Urine Nitrite Urine Bilirubin Urine Urobilinogen Ur Leukocyte Esterase Urine RBC Urine WBC Ur Epithelial Cells Urine Crystals Urine Bacteria Urine Casts Urine Mucus Urine Other Ur Culture Indicated? Urine Glucose 06/07/19 06/07/19 06/07/19 15:50 15:50 15:50 WBC RBC Hgb Hct MCV MCH MCHC RDW Plt Count MPV Immature Gran % Neutrophils % Lymphocytes % Monocytes % Eosinophils % Basophils % Absolute Neutrophils Absolute Lymphocytes Absolute Monocytes Absolute Eosinophils Absolute Basophils RBC Morphology Polychromasia Hypochromasia Poikilocytosis Basophilic Stippling Anisocytosis Microcytosis Tear Drop Cells Stomatocytes PT 10.7 INR 1.1 APTT 23.4 VBG pH VBG pCO2 VBG pO2 VBG HCO3 VBG Total CO2 VBG O2 Saturation VBG Base Excess Sodium Potassium Chloride Carbon Dioxide Anion Gap BUN Creatinine Estimated GFR/1.73 m2 Glucose Calcium Magnesium Ferritin 106 Total Bilirubin AST ALT Alkaline Phosphatase Lactate Dehydrogenase 270 H Troponin I C-Reactive Protein 10.62 H NT-Pro-B Natriuret Pep Total Protein Albumin Procalcitonin 1.6 Urine Color Urine Clarity Urine pH Ur Specific [place] Urine Protein Urine Ketones Urine Blood Urine Nitrite Urine Bilirubin Urine Urobilinogen Ur Leukocyte Esterase Urine RBC Urine WBC Ur Epithelial Cells Urine Crystals Urine Bacteria Urine Casts Urine Mucus Urine Other Ur Culture Indicated? Urine Glucose 06/07/19 06/07/19 16:15 16:55 WBC RBC Hgb Hct MCV MCH MCHC RDW Plt Count MPV Immature Gran % Neutrophils % Lymphocytes % Monocytes % Eosinophils % Basophils % Absolute Neutrophils Absolute Lymphocytes Absolute Monocytes Absolute Eosinophils Absolute Basophils RBC Morphology Polychromasia Hypochromasia Poikilocytosis Basophilic Stippling Anisocytosis Microcytosis Tear Drop Cells Stomatocytes PT INR APTT VBG pH 7.37 VBG pCO2 76 H* VBG pO2 38 VBG HCO3 44 H VBG Total CO2 41 H VBG O2 Saturation 74 VBG Base Excess > 15.0 H Sodium Potassium Chloride Carbon Dioxide Anion Gap BUN Creatinine Estimated GFR/1.73 m2 Glucose Calcium Magnesium Ferritin Total Bilirubin AST ALT Alkaline Phosphatase Lactate Dehydrogenase Troponin I C-Reactive Protein NT-Pro-B Natriuret Pep Total Protein Albumin Procalcitonin Urine Color Yellow Urine Clarity Cloudy Urine pH 6.0 Ur Specific [place] 1.015 Urine Protein 100 H Urine Ketones Negative Urine Blood Moderate H Urine Nitrite Positive H Urine Bilirubin Negative Urine Urobilinogen 0.2 Ur Leukocyte Esterase Large H Urine RBC Urine WBC >50 H Ur Epithelial Cells Negative Urine Crystals Not Applicable Urine Bacteria Packed Urine Casts 10-20 coarsegranular Urine Mucus Not Applicable Urine Other Many renal Ur Culture Indicated? Yes Urine Glucose Negative Last Vital Signs Temp 38.3 C H 06/07/19 16:14 Pulse 98 H 06/07/19 17:16 Resp 22 06/07/19 17:20 BP 131/87 06/07/19 17:16 Pulse Ox 92 L 06/07/19 17:20 COVID-19 Screening Traveled to [place] from one of the affected countries or regions?: NO Recent travel in the [place] within the last 8 weeks?: No Recent out of the country travel within the last 8 weeks?: No Exposure or possible exposure to illness during travel?: No Had IN PERSON contact w/suspected or confirmed C-19 person: No Have you had the following symptoms in the past few days?: Yes Symptoms noted since travel?: Fever
[2019-06-07 18:33] LABS: Diff Comment RBC Morph Reviewed
[2019-06-07] MEDS: SODIUM CHLORIDE 0.45% 1,000 ML 100 ML IV (19:42)
[2019-06-07] MEDS: VANCOMYCIN 1,000 MG in Normal Saline 250 ML 166.667 MG IVPB (20:30)
[2019-06-07] MEDS: ACETAMINOPHEN 1,000 MG/100 ML BTL 400 MG IVPB (20:30)
[2019-06-07] MEDS: Metoprolol 5 MG/5 ML VIAL IVP (20:31)
[2019-06-07] MEDS: PIPERACILLIN/TAZO 3.375 GM in Normal Saline 100 ML IVPB (23:09)
[2019-06-07] MEDS: methylPREDNISolone SUCC 40 MG VIAL IVP (23:09)
[2019-06-08] VITALS (43 sets, daily range): BP systolic 122–1245; BP diastolic 50–85; PULSE 57–89; RESP 11–33; TEMP 36.3–37.7; O2SAT 91–100
[2019-06-08] MEDS: Metoprolol 5 MG/5 ML VIAL IVP (01:51)
[2019-06-08] MEDS: PIPERACILLIN/TAZO 3.375 GM in Normal Saline 100 ML IVPB ×4 (03:23→21:08)
[2019-06-08] MEDS: SODIUM CHLORIDE 0.45% 1,000 ML 100 ML IV (06:45)
[2019-06-08 07:47] LABS: Anion Gap 14.1 mmol/L (3-11); BUN 72 mg/dL (7-18); CO2 28.9 mmol/L (21.0-32.0); CREATININE 2.48 mg/dL (0.70-1.30); Calcium 8.6 mg/dL (8.5-10.1); Chloride 101 mmol/L (98-107); Estimated GFR 26.72 (mL/min/1.73m2); Glucose 355 mg/dL (74-106); Potassium 4.8 mmol/L (3.5-5.1); Sodium 144 mmol/L (136-145)
[2019-06-08] MEDS: Insulin Glargine 300 UNITS/3 ML PEN 15 UNITS SC ×2 (08:00→21:04)
[2019-06-08] MEDS: Insulin Aspart 300 UNITS/3 ML PEN SC ×4 (08:05→21:05)
[2019-06-08] MEDS: cloNIDine 0.1 MG TAB PO ×3 (08:06→19:10)
[2019-06-08] MEDS: Metoprolol 25 MG TAB PO ×2 (08:07→19:10)
[2019-06-08] MEDS: Pantoprazole 40 MG TABCR PO (08:07)
[2019-06-08] MEDS: Apixaban 2.5 MG TAB PO ×2 (08:07→19:10)
[2019-06-08] MEDS: methylPREDNISolone SUCC 40 MG VIAL IVP ×2 (08:07→16:25)
[2019-06-08 08:23] LABS: Lactate 1.8 mmol/L (0.6-1.4)
[2019-06-08 08:36] LABS: Abs Immature Grans 0.01 k/cumm (0.0-0.09); Absolute Lymphocyte Count 0.26 k/cumm (1.2-3.4); Absolute Monocyte Count 0.05 k/cumm (0.11-0.7); Absolute Neutrophil Count 5.99 k/cumm (1.2-6.7); HCT 36.7 % (40.0-50.0); HGB 9.7 g/dL (13.5-17.5); Immature Grans % 0.2 %; Lymphocytes % 4.1; Mean Corp. HGB Concentration 26.4 g/dL (32.0-36.0); Mean Corpuscular Hemoglobin 22.1 pg (27.0-33.0); Mean Corpuscular Volume 83.8 fL (80-95); Mean Platelet Volume 11.1 fL (8.0-11.0); Monocytes % 0.8; Neutrophils % 94.9; Platelet Count 259 x1000/uL (130-400); RBC 4.38 m/cumm (4.50-6.00); RBC Distribution Width 17.8 % (11.8-14.1); White Blood Cell Count 6.31 k/cumm (4.4-10.8)
[2019-06-08 08:37] LABS: BE (Venous) 6.2 mmol/L (-3-3); HCO3 (Venous) 31 mmol/L (22-28); O2 Sat (Venous) 98 % (70-80); TCO2 (Venous) 29 mmol/L (22-29); pCO2 (Venous) 49 mm/Hg (34-47); pH (Venous) 7.41 (7.35-7.45); pO2 (Venous) 86 mm/Hg (28-44)
--- NOTE | 2019-06-08 08:39 | PDOC.CMPRO ---
- If Service Date Differs Date of service: 06/07/19 Time of Service: 08:40
--- NOTE | 2019-06-08 08:46 | INITIAL_ITS ---
- If Service Date Differs Date of service: 06/07/19 Time of Service: 15:00 Care Management Initial Assess REASON FOR HOSPITALIZATION:: Fever, Lethargy, resp insufficency PAST MEDICAL HISTORY/PAST SURGICAL HISTORY:: CHF, Anemia, Anxiety, Back Pain, Bipolar Disorder, CAD, Cardiopulmonary arrest with successful resuscitation, cholelithiasis, anxiety, insomnia, Medical: CHF, chronic pain, CKD, Crohn's Disease, DM type 2 with diabetic neuropathy, diabetic foot ulcer, dyslipidemia, heme positive stool, hemorrhagic cystitis, hypertension, hypoandrogenism, hypothyroidism, impaired mobility and ADLs, Obesity, Pedal edema, Osteoarthritis of both knees, poor self care, poorly controlled DM2 with circulatory disorder, RA, TKA, Fracture ORIF R distal humerus fracture. PREVIOUS FUNCTIONAL STATUS/SOCIAL/FAMILY SUPPORTS:: Brendan is a intermediate resident at the [facility] facility in [place] and requires assistance with all ADLs. Brendan has a sister, Lian Hardy (P#[phone]) who lives in [facility] but they have limited contact. They do speak via phone every couple of weeks. he also has numerous nieces and nephews but states he rarely sees them. His sister is his only identified family support. Brendan enjoys reading and watching TV. CURRENT FUNCTIONAL STATUS:: Brendan, is in the RICU rule out COVID-19. He was recently discharged back to the [facility]. CM reviewed readmission with at the [facility]. Brendan was unable to tolerate his BIPAP over the weekend. The provider attempted medication management at the [facility], Dr. Batres states that she ordered a ruiz and increased diuresis neither appeared to improve his management. After increase confusion and his symptoms he was sent to the ED via ambulance. ADVANCE DIRECTIVES:: COLST on File Has patient been provided with information about the portal?: No Did the patient sign up for the portal?: No CODE STATUS:: Full Code INSURANCE COVERAGE / FINANCIAL ISSUES:: Medicare and Medicaid CURRENT HOME/COMMUNITY SERVICES/EQUIPMENT:: Brendan lives at the [facility], he has a BIPAP he uses at the [facility], he also has an ostomy. All his care needs are met at the [facility]. PRIMARY CARE PHYSICIAN:: [facility] Provider and manage Brendan's care POTENTIAL DISCHARGE NEEDS:: Coordiantion of return to the [facility] when medically ready PATIENT/FAMILY EDUCATION NEEDS:: Discharge education, limitations and coordiantion of follow up care with the [facility] ANTICIPATED BARRIERS TO DISCHARGE:: Pending COVID rule out and coordiantion return to the [facility] including instructions for discharge TRANSPORTATION:: Via RCT PLAN:: Brendan will be discharged when medically ready per provider. He is currently being treated for UTI with IV abx. Brendan will return to the [facility] when medically ready. CM to continue to assess for ongoing discharge needs. Readmission - Within the Past 30 Days Yes or No: Y - Date of First Admission Date of 1st Admission: 06/02/19 - Date of this Admission Date of Admission: 06/07/19 This admission was: Through ED - Assessment for Readmission Summary of readmission circumstances, based upon interviews: Brendan, is in the RICU rule out COVID-19. He was recently discharged back to the [facility]. CM reviewed readmission with at the [facility]. Brendan was unable to tolerate his BIPAP over the weekend. The provider attempted medication management at the [facility], Dr. Batres states that she ordered a ruiz and increased diuresis neither appeared to improve his management. After increase confusion and his symptoms he was sent to the ED via ambulance. is willing to decrease readmission as much as possible. Brendan will continue to be followed by palliative care in addition to his services at the [facility]. He now has a BIPAP at the [facility] which has been helpful in the past when he is willing to wear it. CM provided the provider with 's information to contact her and coordinate a discharge plan.
[2019-06-08] MEDS: amLODIPine 10 MG TAB PO (09:59)
[2019-06-08] MEDS: Insulin Aspart 300 UNITS/3 ML PEN 10 UNITS SC ×2 (12:28→17:29)
--- NOTE | 2019-06-08 13:40 | NS.NUTBLAN_ITS ---
Date of service: 06/08/19 Time of Service: 13:41 Nutritional Consult ASSESSMENT: 59 year old male, [facility] resident, returns 3 days after discharge with fever, respiratory failure. Initially admitted to RICU, now on med surg. PMH: DM2, CHF, CKD. Meds include novolog and lantus, IV fluids D50. BMI indicates class 1 obesity. Following Diabetic Diet. Blood sugars elevated since admission, most likely due to infection, IV dextrose. Estimated Needs: 2759-0545 kcal, 83-90 g protein, 2400 ml fluid. Will educate on carbohydrate content of meals daily with menu selctions. Currently meeting nutrient and fluid intake by mouth. Will provide diabetic education when available and rece ptive. NUTRITIONAL DIAGNOSIS: IDDM Obesity INTERVENTION: Diabetes Consult pending MONITORING AND EVALUATION: weight, po intake, labs Time Spent in Nutritional Counseling and Treatment: 0 time spent face to face
--- NOTE | 2019-06-08 13:55 | PHACLINREV_ITS ---
Pharmacy Admission Review - Admission Clinical Review (Last Reviewed 06/07/19 @ 17:35 by Chance Fragoso MD) Fever (Acute) Respiratory failure (Acute) HCAP (healthcare-associated pneumonia) (Acute) lisinopril Allergy (Unverified 06/02/19 10:44) Height 6 ft 1 in Weight 104.5 kg - Renal Dosing Renal Dosing: BUN 72 mg/dL (7-18) H 06/08/19 07:15 Creatinine 2.48 mg/dL (0.70-1.30) H 06/08/19 07:15 Medications needing adjustments: Reviewed (crcl ~35ml/min) - Anticoagulation Anticoagulation: Hgb 9.7 g/dL (13.5-17.5) L 06/08/19 08:15 Hgb Cancelled 06/08/19 08:15 Hct 36.7 % (40.0-50.0) L 06/08/19 08:15 Hct Cancelled 06/08/19 08:15 Plt Count 259 x1000/uL (130-400) 06/08/19 08:15 Plt Count Cancelled 06/08/19 08:15 INR 1.1 (0.9-1.1) 06/07/19 15:50 Creatinine 2.48 mg/dL (0.70-1.30) H 06/08/19 07:15 DVT Prohphylaxis: Reviewed Medications: Apixaban Therapeutic Anticoagulation: Reviewed Medications: Apixaban - Opiate Usage Evaluate Pain Scale/Pains Meds: N/A Scheduled Bowel Reg ordered if on Opiates?: No (prn) - Relevant Labs Sodium 144 mmol/L (136-145) 06/08/19 07:15 Potassium 4.8 mmol/L (3.5-5.1) 06/08/19 07:15 Chloride 101 mmol/L (98-107) 06/08/19 07:15 Magnesium 1.9 mg/dL (1.8-2.4) 06/07/19 15:50 C-Reactive Protein 10.62 mg/dL (0.0-0.3) H 06/07/19 15:50 Electrolytes, C-Reactive P, ESR: Reviewed - DM Control DM Control: Glucose 355 mg/dL (74-106) H D 06/08/19 07:15 Finger Stick Blood Glucose 486 Finger Stick Blood Glucose 486 Finger Stick Blood Glucose 486 Finger Stick Blood Glucose 404 Finger Stick Blood Glucose 404 Finger Stick Blood Glucose 404 Insulin Dosing: Reviewed (FS 404, glargine and aspart insulin) - Heart Failure/VT Heart Failure/VT: Troponin I < 0.05 ng/Ml (<0.06) 06/07/19 15:50 NT-Pro-B Natriuret Pep 3144 pg/mL (<300) H 06/07/19 15:50 EF%, ARYA's, B-Blockers, Diuretics: Reviewed (metoprolol, furosemide(at home)) - BP Control BP Control: Blood Pressure [Left Arm] 139/65 Blood Pressure [Left Arm] 135/64 Blood Pressure 124/50 Blood Pressure 122/58 If elevated: N/A - Qtc Review If Elevated: Reviewed (448) - IV to PO Switch IV Medications: Reviewed (IVF, IV abx, IV apap and metoprolol PRN) - Home Meds Home Med List reviewed: Reviewed - Current meds Current Medication Order Review: Reviewed - Comments Comments/Follow Ups: most home meds not ordered yet. pt just moved from covid- 19 unit to ICU will expect home meds to be ordered soon Antibiotic Activity - Pharmacy Antibiotic Review Pharmacy Antibiotic Activity: C/S review - Antibiotic Information Antibiotic Review Info: vancomycin, pip/tazo for HAP, also has ecoli in urine
[2019-06-08] MEDS: Normal Saline Flush 10 ML SYR IVP ×3 (14:43→21:12)
--- NOTE | 2019-06-08 15:22 | PGE_ITS ---
Date of Service Date of service: 06/08/19 Time of Service: 15:22 Assessment and Plan Assessment and plan (1) Sepsis: Status: Acute Assessment and plan: Due to HCPA/UTI, POA. Continue empiric vanco/zosyn. Await culture results. Continue stress dose steroids/monitor in the ICU. (2) HCAP (healthcare-associated pneumonia): Status: Acute Assessment and plan: As above (3) UTI (urinary tract infection): Status: Acute Assessment and plan: Ruiz changed; Continue empiric abx as above, awaiting culture results (4) Atrial fibrillation with rapid ventricular response: Status: Chronic Assessment and plan: Now back to NSR. Continue eliquis for anticoagulation (5) Acute kidney injury superimposed on chronic kidney disease: Status: Acute Assessment and plan: Clinically, no longer dehydrated and starting to look fluid overloaded. IVF d/c'ed. Will resume lasix tomorrow. (6) Acute on chronic respiratory failure with hypoxia and hypercapnia: Status: Resolved Assessment and plan: In setting of adrenal crisis and noncompliance with BiPAP. Now, appears to be nearing baseline. Continue to monitor in the ICU. (7) Toxic metabolic encephalopathy: Status: Resolved Assessment and plan: Due to CO2 narcosis and adrenal insufficiency Resolved with BiPAP therapy and stress dose steroids. (8) Diabetes mellitus: Status: Chronic Assessment and plan: with steroid induced hyperglycemia. Resume long acting insulin and intensify SSI to resistant. Scheduled prandial insulin written as well. Qualifiers: Diabetes mellitus complication detail: with polyneuropathy Diabetes mellitus complication status: with neurologic complications Diabetes mellitus chcf insulin use: with rodent exterminator use Diabetes mellitus type: type 2 Qualified Code(s): E11.42 - Type 2 diabetes mellitus with diabetic polyneuropathy; Z79.4 - terminologist (current) use of insulin (9) Discharge planning issues: Status: Acute Assessment and plan: Full code. Consult palliative care (10) DVT prophylaxis: Status: Acute Assessment and plan: On therapeutic eliquis Subjective Subjective Interval history since last seen: Ruled out for COVID-19. States feels a lot better. Denies dizziness, chest pain, nausea, vomiting. Breathing is better. States he does not have a cough. In rapid Afib last night, but converted to NSR by 10 PM and has remained so. Exam Narrative Exam Narrative: General: Obese male, looks more Cushinoid than the last time I saw him, A&Ox3, voice raspier than his normal, NAD, not dyspneic/tachypneic HEENT: EOMI, MMM Heart: RRR, + NUVIA Lungs: Diminished breath sounds B Abdomen: soft, nontender, nondistended Extremities: +1 BLE edema, chronic venous stasis dermatitis Objective Objective Clinical Data: Abnormal lab results 06/07/19 06/07/19 06/07/19 Range/Units 15:50 15:50 15:50 WBC 13.47 H D (4.4-10.8) k/cumm RBC 4.49 L (4.50-6.00) m/cumm Hgb 9.9 L (13.5-17.5) g/dL Hct 38.9 L (40.0-50.0) % MCH 22.0 L (27.0-33.0) pg MCHC 25.4 L (32.0-36.0) g/dL RDW 18.1 H (11.8-14.1) % MPV (8.0-11.0) fL Absolute Neutrophils 12.11 H (1.2-6.7) k/cumm Absolute Lymphocytes 0.26 L (1.2-3.4) k/cumm Absolute Monocytes 0.86 H (0.11-0.7) k/cumm VBG pH 7.27 L (7.35-7.45) VBG pCO2 97 H* (34-47) mm/Hg VBG pO2 50 H (28-44) mm/Hg VBG HCO3 45 H (22-28) mmol/L VBG Total CO2 43 H (22-29) mmol/L VBG O2 Saturation 83 H (70-80) % VBG Base Excess > 15.0 H (-3-3) mmol/L Sodium 147 H (136-145) mmol/L Carbon Dioxide 43.4 H (21.0-32.0) mmol/L Anion Gap -2.4 L (3-11) mmol/L BUN 62 H (7-18) mg/dL Creatinine 2.13 H (0.70-1.30) mg/dL Glucose 132 H (74-106) mg/dL Lactate (0.6-1.4) mmol/L Lactate Dehydrogenase (85-227) U/L C-Reactive Protein (0.0-0.3) mg/dL NT-Pro-B Natriuret Pep 3144 H (<300) pg/mL Albumin 2.9 L (3.4-5.0) g/dL Urine Protein (Negative) mg/dL Urine Blood (Negative) Urine Nitrite (Negative) Ur Leukocyte Esterase (Negative) Urine WBC (0-5) HPF 06/07/19 06/07/19 06/07/19 Range/Units 15:50 16:15 16:55 WBC (4.4-10.8) k/cumm RBC (4.50-6.00) m/cumm Hgb (13.5-17.5) g/dL Hct (40.0-50.0) % MCH (27.0-33.0) pg MCHC (32.0-36.0) g/dL RDW (11.8-14.1) % MPV (8.0-11.0) fL Absolute Neutrophils (1.2-6.7) k/cumm Absolute Lymphocytes (1.2-3.4) k/cumm Absolute Monocytes (0.11-0.7) k/cumm VBG pH (7.35-7.45) VBG pCO2 76 H* (34-47) mm/Hg VBG pO2 (28-44) mm/Hg VBG HCO3 44 H (22-28) mmol/L VBG Total CO2 41 H (22-29) mmol/L VBG O2 Saturation (70-80) % VBG Base Excess > 15.0 H (-3-3) mmol/L Sodium (136-145) mmol/L Carbon Dioxide (21.0-32.0) mmol/L Anion Gap (3-11) mmol/L BUN (7-18) mg/dL Creatinine (0.70-1.30) mg/dL Glucose (74-106) mg/dL Lactate (0.6-1.4) mmol/L Lactate Dehydrogenase 270 H (85-227) U/L C-Reactive Protein 10.62 H (0.0-0.3) mg/dL NT-Pro-B Natriuret Pep (<300) pg/mL Albumin (3.4-5.0) g/dL Urine Protein 100 H (Negative) mg/dL Urine Blood Moderate H (Negative) Urine Nitrite Positive H (Negative) Ur Leukocyte Esterase Large H (Negative) Urine WBC >50 H (0-5) HPF 06/08/19 06/08/19 06/08/19 Range/Units 07:15 08:15 08:15 WBC (4.4-10.8) k/cumm RBC 4.38 L (4.50-6.00) m/cumm Hgb 9.7 L (13.5-17.5) g/dL Hct 36.7 L (40.0-50.0) % MCH 22.1 L (27.0-33.0) pg MCHC 26.4 L (32.0-36.0) g/dL RDW 17.8 H (11.8-14.1) % MPV 11.1 H (8.0-11.0) fL Absolute Neutrophils (1.2-6.7) k/cumm Absolute Lymphocytes 0.26 L (1.2-3.4) k/cumm Absolute Monocytes 0.05 L (0.11-0.7) k/cumm VBG pH (7.35-7.45) VBG pCO2 (34-47) mm/Hg VBG pO2 (28-44) mm/Hg VBG HCO3 (22-28) mmol/L VBG Total CO2 (22-29) mmol/L VBG O2 Saturation (70-80) % VBG Base Excess (-3-3) mmol/L Sodium (136-145) mmol/L Carbon Dioxide (21.0-32.0) mmol/L Anion Gap 14.1 H (3-11) mmol/L BUN 72 H (7-18) mg/dL Creatinine 2.48 H (0.70-1.30) mg/dL Glucose 355 H D (74-106) mg/dL Lactate 1.8 H (0.6-1.4) mmol/L Lactate Dehydrogenase (85-227) U/L C-Reactive Protein (0.0-0.3) mg/dL NT-Pro-B Natriuret Pep (<300) pg/mL Albumin (3.4-5.0) g/dL Urine Protein (Negative) mg/dL Urine Blood (Negative) Urine Nitrite (Negative) Ur Leukocyte Esterase (Negative) Urine WBC (0-5) HPF 06/08/19 Range/Units 08:15 WBC (4.4-10.8) k/cumm RBC (4.50-6.00) m/cumm Hgb (13.5-17.5) g/dL Hct (40.0-50.0) % MCH (27.0-33.0) pg MCHC (32.0-36.0) g/dL RDW (11.8-14.1) % MPV (8.0-11.0) fL Absolute Neutrophils (1.2-6.7) k/cumm Absolute Lymphocytes (1.2-3.4) k/cumm Absolute Monocytes (0.11-0.7) k/cumm VBG pH (7.35-7.45) VBG pCO2 49 H (34-47) mm/Hg VBG pO2 86 H (28-44) mm/Hg VBG HCO3 31 H (22-28) mmol/L VBG Total CO2 (22-29) mmol/L VBG O2 Saturation 98 H (70-80) % VBG Base Excess 6.2 H (-3-3) mmol/L Sodium (136-145) mmol/L Carbon Dioxide (21.0-32.0) mmol/L Anion Gap (3-11) mmol/L BUN (7-18) mg/dL Creatinine (0.70-1.30) mg/dL Glucose (74-106) mg/dL Lactate (0.6-1.4) mmol/L Lactate Dehydrogenase (85-227) U/L C-Reactive Protein (0.0-0.3) mg/dL NT-Pro-B Natriuret Pep (<300) pg/mL Albumin (3.4-5.0) g/dL Urine Protein (Negative) mg/dL Urine Blood (Negative) Urine Nitrite (Negative) Ur Leukocyte Esterase (Negative) Urine WBC (0-5) HPF Vital Signs Temperature 37.3 C 06/08/19 14:09 Temperature Source Temporal Artery Scan 06/08/19 14:09 Pulse 70 06/08/19 14:09 Pulse 87 06/07/19 18:31 Respiratory Rate 21 06/08/19 14:09 Respiratory Effort 06/08/19 14:09 Respiratory Depth Normal 06/08/19 14:09 Respiratory Pattern Normal 06/08/19 14:09 Blood Pressure 152/69 H 06/08/19 14:09 Blood Pressure Mean 96 06/08/19 14:09 Blood Pressure Position Supine 06/08/19 14:09 Pulse Oximetry 97 06/08/19 14:09 Oxygen Delivery Method Nasal Cannula 06/08/19 14:09 Oxygen Flow Rate 1 06/08/19 14:09 Fraction of Inspired Oxygen (FIO2) 30 06/07/19 19:59 Pain Level 0 06/08/19 14:09 Comment 06/07/19 19:59 Intake & Output 06/07/19 06/08/19 06/08/19 23:59 11:59 23:59 Intake Total 550 / 550 3260 / 3560 300 / 3560 Output Total 200 / 200 1450 / 1450 Balance 350 / 350 1810 / 2110 300 / 2110 Weight 104.5 kg 104.5 kg Intake: IV 550 / 550 1300 / 1300 Oral 1960 / 2260 300 / 2260 Output: Urine 200 / 200 1400 / 1400 Stool 50 / 50 Other: Urine Color Yellow Urine Appearance Cloudy Comment ruiz in place. Ruiz catheter changed at 0915 this am. Yellow cloudy urine in Ruiz tubing. Ruiz catheter with yellow urine in collection bag. Laboratory Results WBC 6.31 k/cumm (4.4-10.8) D 06/08/19 08:15 WBC Cancelled 06/08/19 08:15 RBC 4.38 m/cumm (4.50-6.00) L 06/08/19 08:15 RBC Cancelled 06/08/19 08:15 Hgb 9.7 g/dL (13.5-17.5) L 06/08/19 08:15 Hgb Cancelled 06/08/19 08:15 Hct 36.7 % (40.0-50.0) L 06/08/19 08:15 Hct Cancelled 06/08/19 08:15 MCV 83.8 fL (80-95) 06/08/19 08:15 MCV Cancelled 06/08/19 08:15 MCH 22.1 pg (27.0-33.0) L 06/08/19 08:15 MCH Cancelled 06/08/19 08:15 MCHC 26.4 g/dL (32.0-36.0) L 06/08/19 08:15 MCHC Cancelled 06/08/19 08:15 RDW 17.8 % (11.8-14.1) H 06/08/19 08:15 RDW Cancelled 06/08/19 08:15 Plt Count 259 x1000/uL (130-400) 06/08/19 08:15 Plt Count Cancelled 06/08/19 08:15 MPV 11.1 fL (8.0-11.0) H 06/08/19 08:15 MPV Cancelled 06/08/19 08:15 Immature Gran % 0.2 % 06/08/19 08:15 Neutrophils % 94.9 06/08/19 08:15 Lymphocytes % 4.1 06/08/19 08:15 Monocytes % 0.8 06/08/19 08:15 Eosinophils % 0.0 06/08/19 08:15 Basophils % 0.0 06/08/19 08:15 Absolute Neutrophils 5.99 k/cumm (1.2-6.7) 06/08/19 08:15 Absolute Lymphocytes 0.26 k/cumm (1.2-3.4) L 06/08/19 08:15 Absolute Monocytes 0.05 k/cumm (0.11-0.7) L 06/08/19 08:15 Absolute Eosinophils 0.00 k/cumm (0.0-0.7) 06/08/19 08:15 Absolute Basophils 0.00 k/cumm (0.0-0.2) 06/08/19 08:15 Differential Comment Rbc morph reviewed 06/07/19 15:50 RBC Morphology See below 06/07/19 15:50 Polychromasia Present 06/07/19 15:50 Hypochromasia 3+ 06/07/19 15:50 Poikilocytosis 2+ 06/07/19 15:50 Basophilic Stippling 1+ 06/07/19 15:50 Anisocytosis 2+ 06/07/19 15:50 Microcytosis 1+ 06/07/19 15:50 Tear Drop Cells 2+ 06/07/19 15:50 Stomatocytes 3+ 06/07/19 15:50 PT 10.7 sec (9.3-11.0) 06/07/19 15:50 INR 1.1 (0.9-1.1) 06/07/19 15:50 APTT 23.4 sec (21.0-31.4) 06/07/19 15:50 VBG pH 7.41 (7.35-7.45) 06/08/19 08:15 VBG pCO2 49 mm/Hg (34-47) H 06/08/19 08:15 VBG pO2 86 mm/Hg (28-44) H 06/08/19 08:15 VBG HCO3 31 mmol/L (22-28) H 06/08/19 08:15 VBG Total CO2 29 mmol/L (22-29) 06/08/19 08:15 VBG O2 Saturation 98 % (70-80) H 06/08/19 08:15 VBG Base Excess 6.2 mmol/L (-3-3) H 06/08/19 08:15 Sodium 144 mmol/L (136-145) 06/08/19 07:15 Potassium 4.8 mmol/L (3.5-5.1) 06/08/19 07:15 Chloride 101 mmol/L (98-107) 06/08/19 07:15 Carbon Dioxide 28.9 mmol/L (21.0-32.0) 06/08/19 07:15 Anion Gap 14.1 mmol/L (3-11) H 06/08/19 07:15 BUN 72 mg/dL (7-18) H 06/08/19 07:15 Creatinine 2.48 mg/dL (0.70-1.30) H 06/08/19 07:15 Estimated GFR/1.73 m2 26.72 (mL/min/1.73m2) 06/08/19 07:15 Glucose 355 mg/dL (74-106) H D 06/08/19 07:15 Lactate 1.8 mmol/L (0.6-1.4) H 06/08/19 08:15 Calcium 8.6 mg/dL (8.5-10.1) 06/08/19 07:15 Magnesium 1.9 mg/dL (1.8-2.4) 06/07/19 15:50 Ferritin 106 ng/mL (26-388) 06/07/19 15:50 Total Bilirubin 0.8 mg/dL (0.2-1.0) 06/07/19 15:50 AST 27 U/L (15-37) 06/07/19 15:50 ALT 18 U/L (16-63) 06/07/19 15:50 Alkaline Phosphatase 94 U/L (46-116) 06/07/19 15:50 Lactate Dehydrogenase 270 U/L (85-227) H 06/07/19 15:50 Troponin I < 0.05 ng/Ml (<0.06) 06/07/19 15:50 C-Reactive Protein 10.62 mg/dL (0.0-0.3) H 06/07/19 15:50 NT-Pro-B Natriuret Pep 3144 pg/mL (<300) H 06/07/19 15:50 Total Protein 7.1 g/dL (6.4-8.2) 06/07/19 15:50 Albumin 2.9 g/dL (3.4-5.0) L 06/07/19 15:50 Procalcitonin 1.6 ng/mL 06/07/19 15:50 Urine Color Yellow (Yellow) 06/07/19 16:15 Urine Clarity Cloudy (Clear) 06/07/19 16:15 Urine pH 6.0 (5-8) 06/07/19 16:15 Ur Specific [place] 1.015 (1.005-1.025) 06/07/19 16:15 Urine Protein 100 mg/dL (Negative) H 06/07/19 16:15 Urine Ketones Negative mg/dL (Negative) 06/07/19 16:15 Urine Blood Moderate (Negative) H 06/07/19 16:15 Urine Nitrite Positive (Negative) H 06/07/19 16:15 Urine Bilirubin Negative (Negative) 06/07/19 16:15 Urine Urobilinogen 0.2 EU/dL (Up TO 0.2) 06/07/19 16:15 Ur Leukocyte Esterase Large (Negative) H 06/07/19 16:15 Urine RBC HPF (0-2) 06/07/19 16:15 Urine WBC >50 HPF (0-5) H 06/07/19 16:15 Ur Epithelial Cells Negative HPF (Negative) 06/07/19 16:15 Urine Crystals Not Applicable 06/07/19 16:15 Urine Bacteria Packed HPF (Negative) 04/13/20 16:15 Urine Casts 10-20 coarsegranular LPF (Negative) 06/07/19 16:15 Urine Mucus Not Applicable 06/07/19 16:15 Urine Other Many renal (Negative) 06/07/19 16:15 Ur Culture Indicated? Yes 06/07/19 16:15 Urine Glucose Negative mg/dL (Negative) 06/07/19 16:15
[2019-06-08] MEDS: Normal Saline 500 ML 30 ML IV (16:26)
[2019-06-08 16:36] LABS: COVID-19 RT-PCR Result Negative (Negative)
[2019-06-08] MEDS: Melatonin 3 MG TAB 6 MG PO (21:40)
[2019-06-09] VITALS (46 sets, daily range): BP systolic 138–162; BP diastolic 62–97; PULSE 54–67; RESP 11–31; TEMP 36.5–37.1; O2SAT 93–100
[2019-06-09] MEDS: methylPREDNISolone SUCC 40 MG VIAL IVP ×3 (00:02→15:44)
[2019-06-09] MEDS: PIPERACILLIN/TAZO 3.375 GM in Normal Saline 100 ML IVPB ×2 (04:44→09:32)
[2019-06-09 07:15] LABS: Abs Immature Grans 0.01 k/cumm (0.0-0.09); Absolute Lymphocyte Count 0.21 k/cumm (1.2-3.4); Absolute Monocyte Count 0.11 k/cumm (0.11-0.7); Absolute Neutrophil Count 6.05 k/cumm (1.2-6.7); HCT 34.5 % (40.0-50.0); HGB 9.4 g/dL (13.5-17.5); Immature Grans % 0.2 %; Lymphocytes % 3.3; Mean Corp. HGB Concentration 27.2 g/dL (32.0-36.0); Mean Corpuscular Hemoglobin 22.1 pg (27.0-33.0); Mean Platelet Volume 10.8 fL (8.0-11.0); Monocytes % 1.7; Neutrophils % 94.8; Platelet Count 295 x1000/uL (130-400); RBC 4.26 m/cumm (4.50-6.00); RBC Distribution Width 17.4 % (11.8-14.1); White Blood Cell Count 6.38 k/cumm (4.4-10.8)
[2019-06-09 07:23] LABS: C-Reactive Protein 6.74 mg/dL (0.0-0.3); CREATININE 3.14 mg/dL (0.70-1.30); Calcium 8.2 mg/dL (8.5-10.1); Chloride 99 mmol/L (98-107); Estimated GFR 20.35 (mL/min/1.73m2); Glucose 358 mg/dL (74-106); Magnesium 1.8 mg/dL (1.8-2.4); Potassium 5.2 mmol/L (3.5-5.1); Sodium 137 mmol/L (136-145)
[2019-06-09 07:24] LABS: BUN 92 mg/dL (7-18)
[2019-06-09] MEDS: Insulin Aspart 300 UNITS/3 ML PEN SC ×4 (07:45→21:46)
[2019-06-09] MEDS: amLODIPine 10 MG TAB PO (07:47)
[2019-06-09] MEDS: Pantoprazole 40 MG TABCR PO (07:47)
[2019-06-09] MEDS: Metoprolol 25 MG TAB PO ×2 (07:47→21:34)
[2019-06-09] MEDS: Insulin Glargine 300 UNITS/3 ML PEN 15 UNITS SC (07:47)
[2019-06-09] MEDS: Apixaban 2.5 MG TAB PO ×2 (07:48→21:34)
[2019-06-09] MEDS: Normal Saline Flush 10 ML SYR IVP (07:49)
[2019-06-09] MEDS: cloNIDine 0.1 MG TAB PO ×3 (07:50→21:34)
[2019-06-09] MEDS: Insulin Aspart 300 UNITS/3 ML PEN 10 UNITS SC ×3 (07:58→16:59)
[2019-06-09 08:03] LABS: Diff Comment RBC Morph Reviewed
[2019-06-09 08:04] LABS: Anisocytosis 3+; Hypochromasia 2+; Microcytosis 2+; Ovalocytes 3+; Poikilocytes 1+
[2019-06-09] MEDS: Insulin Glargine 300 UNITS/3 ML PEN 10 UNITS SC (08:17)
--- NOTE | 2019-06-09 08:44 | NUR.NOTE ---
0817 received order to give patient additional 10 units of glargine insulin
--- NOTE | 2019-06-09 09:00 | DI.US_ITS ---
APPROVED REPORT EXAM: Comprehensive 2D, Doppler, and color-flow Echocardiogram Patient Location: In-Patient Room/Bed: [address] [employer] Operator: Clair Penaloza RDCS (AE) Indications: Worsening Heart Murmur, Chronic A Fib Conclusion Left Ventricle : The left ventricle is normal size. The overall left ventricular systolic function ap pears normal. Moderate concentric left ventricular hypertrophy. There is normal LV segmental wall mot ion. Transmitral Doppler flow pattern suggests impaired LV relaxation. LVEF is 50-55%. Right Ventricle : Right ventricle is not well visualized. Right ventricular systolic function could n ot be assessed. Atria : The left atrium size is normal. The right atrium size is normal. Aortic Valve : The Aortic valve is sclerotic. Aortic valve is trileaflet. There is no aortic valvular stenosis. No aortic regurgitation is present. Mitral Valve : There is mitral annular calcification. Mitral valve leaflets are thickened. No evidenc e of mitral valve stenosis. Mild to moderate mitral regurgitation. Tricuspid Valve : The tricuspid valve is normal in structure. Trace tricuspid regurgitation. There is no tricuspid valve stenosis. The IVC collapses <50% with inspiration. Estimated RVSP is 42 mmHg. Compared to echocardiogram dated 03/17/2019: The estimated RVSP has decreased from 51 to 42 mmHg. Wall motion Left Ventricle The left ventricle is normal size. The overall left ventricular systolic function appears normal. Mod erate concentric left ventricular hypertrophy. There is normal LV segmental wall motion. Transmitral Doppler flow pattern suggests impaired LV relaxation. There is no ventricular septal defect visualize d. LVEF is 50-55%. Right Ventricle Right ventricle is not well visualized. Right ventricular systolic function could not be assessed. Atria The left atrium size is normal. The right atrium size is normal. The interatrial septum is intact wit h no evidence for an atrial septal defect. Aortic Valve The Aortic valve is sclerotic. Aortic valve is trileaflet. There is no aortic valvular stenosis. No a ortic regurgitation is present. Mitral Valve There is mitral annular calcification. Mitral valve leaflets are thickened. No evidence of mitral katie ve stenosis. Mild to moderate mitral regurgitation. Tricuspid Valve The tricuspid valve is normal in structure. There is no tricuspid valve stenosis. Trace tricuspid reg urgitation. Pulmonic Valve The pulmonary valve is normal in structure. There is no pulmonic valvular stenosis. There is no pulmo marti valvular regurgitation. Great Vessels The aortic root is normal in size. Ascending aorta is not well visualized. Aortic arch is not well vi sualized. The IVC collapses <50% with inspiration. Estimated RVSP is 42 mmHg. Pericardium There is no pericardial effusion. 2D Dimensions IVSD d PLAX 1.36 cm M: 0.6-1.2 LV Vol A2C d MOD 304.8 mL LVPW d PLAX 1.30 cm M: 0.6 - 1.2 LV Vol A4C d MOD 180.9 mL LVID d PLAX 5.60 cm M: 4.2 - 5.8 LA vol/ BSA A4C s A-L 50.3 mL/m2 LVDs 4.40 cm M: 2.5 - 4.0 LA Area A4C s MOD 29.60 cm2 Ao Root d 3.29 cm M: 3.1 - 3.7 LV EF A4C MOD 55.4 % IVS 1.36 cm LV EF A2C MOD 53.6 % LV EF Teichholz 43.0 % LV EF Biplane MOD 53.2 % LVEF (Blair's) 53.21 % M: 52 - 72 LV Volume 175.56 mL M: 62 - 150 LV Volume Index 77.00 mL/m2 M: 34 - 74 LV Vol Biplane MOD 244.2 mL LV Diastology E Decel Time 3.58 (160-240 msec) MV E' medial 0.074 (>0.07 m/s) LV E/e MED 12.92 (<14) MV E' lateral 0.078 (>0.1 m/s) LV E/e LAT 12.25 (<14) E Peak Velocity 0.96 m/s A Peak Velocity 0.53 m/s Aortic Valve LVOT Area 3.07 cm2 JEAN CARLOS 2.18 cm2 LVOT Vmax 1.18 m/s AoV Area Vmax 2.20 cm2 LVOT Mean Thomas. 0.68 m/s AoV Area/ BSA (Vmax) 0.96 cm2/m2 LVOT Peak Grad 5.6 mmHg JEAN CARLOS Mean Thomas. 1.84 cm2 LVOT Mean Grad 2.3 mmHg JEAN CARLOS Mean Thomas. Index 0.81 cm2/m2 LVOT VTI 0.240 m LVOT Diam s 1.98 cm (M/F) 1.5-2.5 AoV Vmax 1.61 (0.5-1.3 m/s) Velocity Ratio 0.73 AoV Mean Thomas. 1.13 m/s AoV Peak Grad 10.8 mmHg LVOT SV 74.91 mL AoV VTI 0.343 (0.18-0.25 m) AoV Area VTI 2.18 (2.5-4.5 cm2) AoV Area/ BSA (VTI) 0.96 cm/m2 Mitral Valve MV DT 265 (160-240 msec) MV PHT 77 msec MV Area PHT 2.86 cm2 Pulmonary Valve PV Vmax 1.17 (0.5-1.5 m/s) RVOT VTI 0.160 m PV Peak Grad 5.5 mmHg RVOT Vmax 0.69 m/s PV Mean Grad 3.1 mmHg Tricuspid Valve RV-RA Gradient 33.80 mmHg TR Vmax 2.91 m/s RA Pressure 8.00 mmHg RVSP (TR) 41.8 mmHg
--- NOTE | 2019-06-09 09:29 | PT.INNT ---
Date of service: 06/09/19 Time of Service: 09:29 PT Notes Visit Reasons: SEPSIS FROM UTI,?PNA,ACUTE ADRENAL CRISIS,ENCEPHAL PT consult attempted held via nursing until PM.
--- NOTE | 2019-06-09 10:22 | DI.US_ITS ---
EXAM: US RENAL CLINICAL HISTORY: JESUS. TECHNIQUE: Baez scale, color and spectral Doppler were used. COMPARISON: US renal from 06/09/2018 FINDINGS: Renal size in cm: Right: 11.7 left: 9.5 Echogenicity: Normal. Mild left renal cortical atrophy. Hydronephrosis: No. Cyst or mass: No. Nephrolithiasis: No. Other findings: Moderate amount of abdominal and pelvic ascites. Bladder:Bladder is incompletely distended with a Downing catheter in place. This limits evaluation of the bladder wall. Ureteral jets: Right: Not visualized during the examination. Left: Not visualized during the examination. Prevoid vol:41 cc Postvoid vol:17 cc IMPRESSION: 1. Limited evaluation of the urinary bladder secondary to incomplete distension and the Downing cathete r. 2. Mild left renal cortical atrophy. No evidence of hydronephrosis or nephrolithiasis. 3. Moderate amount of abdominal and pelvic ascites. The largest pocket of fluid is in the left lower quadrant. DATA REPOSITORY:
[2019-06-09 12:49] LABS: Anion Gap 6.4 mmol/L (3-11); CO2 32.6 mmol/L (21.0-32.0); CREATININE 3.18 mg/dL (0.70-1.30); Calcium 8.6 mg/dL (8.5-10.1); Chloride 98 mmol/L (98-107); Estimated GFR 20.06 (mL/min/1.73m2); Glucose 372 mg/dL (74-106); Sodium 137 mmol/L (136-145)
--- NOTE | 2019-06-09 12:51 | PT.INIE ---
Date of service: 06/09/19 Time of Service: 12:30 PT Notes Visit Reasons: SEPSIS FROM UTI,?PNA,ACUTE ADRENAL CRISIS,ENCEPHAL Inpatient Physical Therapy Evaluation Date: June 09, 2019 Referring Doctor: Priscila Canela PT Orders: PT CONSULT: Limited Ability Precautions: Contact. Fall. Activity as tolerated. Patient Profile/Admitting Diagnosis: Patient is a 59-year-old male who was admitted to the ED on 06/07/2019 with multiple problems, including sepsis from UTI, Afib, Acute respiratory failure with hyposia, and hypercapnia. PMHX: Acromegaly (Chronic) Acute on chronic kidney failure (Resolved) Adrenal insufficiency (Chronic) Ambulatory dysfunction (Chronic) Anemia (Chronic) Atrial flutter, paroxysmal (Chronic) Back pain (Chronic 06/21/13) CAD (coronary artery disease) (Chronic) Cardiopulmonary arrest with successful resuscitation (Resolved) Cholelithiasis (Chronic) Chronic anxiety (Chronic) Chronic bipolar disorder (Chronic) a. With history of psychosis. Chronic cholecystitis (Chronic) Chronic insomnia (Chronic) Chronic pain (Chronic) On both Methadone and Fentanyl as well as Ultram and Naproxen. CKD (chronic kidney disease) (Chronic) Complicated UTI (urinary tract infection) (Resolved) Diabetes mellitus (Chronic) Diabetic foot ulcer (Chronic) Diabetic ulcer of toe associated with diabetes mellitus due to underlying condition, with bone involvement without evidence of necrosis (Inactive) 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 (Resolved) Dyslipidemia (Chronic) Elevated troponin I level (Resolved) Endocarditis due to Staphylococcus (Resolved) Heme positive stool (Resolved) Hemorrhagic cystitis (Chronic) Hyperkalemia (Resolved) Hypertension (Chronic) Hypomagnesemia (Chronic) Hypothyroidism (Chronic) Impaired mobility and ADLs (Chronic) Inability to get out of bed (Chronic 06/21/13) Lactic acidosis (Resolved) MRSA bacteremia (Resolved) Obesity (Chronic) a. Obesity though he has had significant weight loss since last seen. Osteoarthritis of both knees (Chronic) Severe. a. [id number] bilateral knees. 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 2 diabetes mellitus (Resolved) Palliative care encounter (Chronic) DObbertin Pedal edema (Chronic) Poor self care (Chronic 06/21/13) Poorly controlled type 2 diabetes mellitus with circulatory disorder (Chronic) Presence of IVC filter (Acute) Pulmonary hypertension (Chronic) Rheumatoid arthritis (Chronic) Sepsis (Resolved) Septic arthritis of elbow, right (Inactive) Toxic metabolic encephalopathy (Resolved) Toxic metabolic encephalopathy (Resolved) Ulcerative colitis (Chronic) UTI (urinary tract infection) (Resolved) UTI (urinary tract infection) due to Enterococcus (Resolved) Surgical History Arthroplasty of knee (Resolved 03/18/12) irrigation and lavage right Fracture, Open Treatment (Resolved) 06/06/17-[facility] [place] S/P ORIF RIGHT DISTAL HUMERUS FRACTURE History of insertion of T-tube into biliary tract (Chronic) S/P colectomy (Chronic) Social History/Home Situation: Long-term resident of the [facility]. Patient has had multiple acute care admissions in the past several years. Patient reports that he has not ambulated at the SNF prior to this admission. He notes that he is assisted into a wheelchair from his bed at the [facility]. Equipment Owned/DME: LTC resident Subjective: He reports that he has not been walking while at the [facility]. He reports that he has been receiving some PT/OT services at the [facility] to promote his ROM and strength. Objective: General Observation:Sitting up on edge of bed at time of PT consult just finishing his lunch. Patient is agreeable and smiling throughout session. IV to RUE. Catheter. colostomy. O2 via nasal canula 1 liter/min, L LE soft boot for pressure relief Mental Status: A and O x3 Pain: Complained of pain on his back and his knees ROM: Right Upper Extremity: Shoulder flexion allows 45 degrees. Elbow motion allows 40 degrees to 90 degrees.He has partial opening and partial closing of the hand. AA shoulder flexion to 90 degrees, abduction 90 degrees, ER 20 degrees Left Upper Extremity: Shoulder flexion allows 70 degrees. Elbow motion WFL. He has partial opening and partial closing of the hand. AA shoulder flexion 130 degrees, scaption 120 degrees, IR to chest wall, ER 40 degrees Right Lower Extremity: Hip flexors allows less than 90 degrees. Right knee allows -20 degrees extension, 90 degrees flexion. Ankle dorsiflexion allows 0 degrees. Left Lower Extremity: Hip flexors less than 90 degrees. Left knee allows -10 degrees extension, 90 degrees flexion. Ankle dorsiflexion to 0 degrees. Strength: Right Upper Extremity: Shoulder flexors 3-/5. Shoulder abductors 3-/5. Elbow flexors 3-/5. Elbow extensors 3-/5. Left Upper Extremity: Shoulder flexors 3-/5. Shoulder abductors 3-/5. Elbow flexors 3-/5. Elbow extensors 3-/5. Right Lower Extremity: Hip flexors 3-/5. Hip abductors 3-/5. Knee flexors 3-/5. Knee extensors 2-/5. Ankle dorsiflexors 1/5. Ankle plantarflexors 1/5. Left Lower Extremity:Hip flexors 3-/5. Hip abductors 3-/5. Knee flexors 3-/5. Knee extensors 2-/5. Ankle dorsiflexors 1/5. Ankle plantarflexors 1/5. Bed Mobility/Transfers: Sit-Supine: Deven Refused all other transfers due to fatigue. Gait: Refused mobility assessment due to fatigue. Patient is not ambulatory at the [facility] even at baseline prior to admission. Balance: Static Sitting: Normal Dynamic Sitting: Normal Static Standing: NT Dynamic Standing: NT Special Tests: Mobility Limitations Standardized Measure [facility] AM-PAC 6 clicks Basic Mobility Inpatient Short Form: Raw Score: 11 CMS Score: 73% deficit Informed Consent/Education: Patient instructed in purpose of PT consult and plan of care. Assessment: Patient is a 59-year-old male who was admitted to the ED on 06/09/19 with sepsis, pneumonia, UTI, acute Afib, along with acute respiratory failure with hypoxia and hypercapnia. Referral to physical therapy was made in order to address mobility impairments, weakness, and impaired activity tolerance. Patient currently demonstrates the following impairment level findings: 1. Severe, global weakness and loss of range of motion 2. Contractures of the right elbow, bilateral knees 3. Decreased activity tolerance 4. Back pain Impairments are contributing to the following functional limitations: 1. Unable to ambulate 2. Decreased activity tolerance 3. Decreased independence with transfers Patient is assessed as Moderate 44666 complexity based on the following: History: As above Examination: As above Presentation: Evolving Decision Making: Moderate Goals: Goals X1 week 1. Supine-Sit CGA 2. Sit-Supine CGA 3. Sit-Stand minimal assist 4. Stand-Sit minimal assist 5. Bed-Chair minimal assist 6. Chair-Bed minimal assist 7. Fair static and dynamic standing balance/tolerance Plan of Care/Treatment Plan: 1x/day, 7 days/week x 1 week. Plan of care has been reviewed with the [employer] RELATIONSHIP MANAGER providing the service under Physical Therapy direction. Initiate Physical Therapy intervention for strengthening, bed mobility, transfers, balance training, use of assistive device. DISCHARGE RECOMMENDATIONS: Return to SNF when medically cleared to do TREATMENT CODE/TIME: 13648 x 25 minutes beginning at 12:30 PM. Thank you very much for this referral. Racquel Bermudez, MPT [facility] Inpatient PT at [facility]
[2019-06-09 12:57] LABS: BUN 97 mg/dL (7-18)
--- NOTE | 2019-06-09 13:33 | W.PM.PROGNOT ---
Date of Service Date of service: 06/09/19 Time of Service: 13:34 Assessment and Plan Assessment and plan (1) Sepsis: Status: Acute Assessment and plan: Due to HCPA/E. Coli UTI, POA. Blood cultures: NGTD. Await urine C&S sensitivities. Continue empiric vanco/zosyn - vancomycin because the patient has a h/o MRSA PNA. Continue stress dose steroids. Will keep in ICU for tonight. (2) HCAP (healthcare-associated pneumonia): Status: Acute Assessment and plan: As above (3) UTI (urinary tract infection): Status: Acute Assessment and plan: Due to E. Coli, Present on admission. Sensitivities are pending. Zosyn should be covering this - will continue. (vanco is being predominantly used for PNA). Ruiz changed 06/08/2019. (4) Atrial fibrillation with rapid ventricular response: Status: Chronic Assessment and plan: Now back to NSR. Continue eliquis for anticoagulation (5) Acute kidney injury superimposed on chronic kidney disease: Status: Acute Assessment and plan: Worse today - I think this is due to cardiorenal etiology/pulmonary hypertension. Await echo. Continue lasix gtt. Trend BMP. (6) Acute on chronic respiratory failure with hypoxia and hypercapnia: Status: Resolved Assessment and plan: In setting of adrenal crisis and noncompliance with BiPAP. Now, appears to be nearing baseline. Continue to monitor in the ICU. (7) Toxic metabolic encephalopathy: Status: Resolved Assessment and plan: Due to CO2 narcosis and adrenal insufficiency Resolved with BiPAP therapy and stress dose steroids. (8) Diabetes mellitus: Status: Chronic Assessment and plan: with steroid induced hyperglycemia. 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 (10) DVT prophylaxis: Status: Acute Assessment and plan: On therapeutic eliquis Subjective Subjective Interval history since last seen: Mr Corley denies dizziness, chest pain, shortness of breath, nausea. Started on lasix gtt this morning. UOP about 100 cc/hr. Asks to make sure that he gets his melatonin because he did not sleep well last night and he is very sleepy today. Slept with BiPAP on last night. Exam Narrative Exam Narrative: General: Obese male with a Cushinoid appearance, A&Ox3, does look a little sleepy, but completely alert and asking good questions, NAD, not dyspneic/tachypneic HEENT: EOMI, MMM Heart: RRR, + NUVIA Lungs: Diminished breath sounds B Abdomen: soft, nontender, nondistended Extremities: +2 BLE edema (worse today), chronic venous stasis dermatitis Objective Objective Clinical Data: Abnormal lab results 06/09/19 06/09/19 06/09/19 Range/Units 06:15 06:15 12:30 RBC 4.26 L (4.50-6.00) m/cumm Hgb 9.4 L (13.5-17.5) g/dL Hct 34.5 L (40.0-50.0) % MCH 22.1 L (27.0-33.0) pg MCHC 27.2 L (32.0-36.0) g/dL RDW 17.4 H (11.8-14.1) % Absolute Lymphocytes 0.21 L (1.2-3.4) k/cumm Potassium 5.2 H (3.5-5.1) mmol/L Carbon Dioxide 33.0 H 32.6 H (21.0-32.0) mmol/L BUN 92 H* D 97 H* (7-18) mg/dL Creatinine 3.14 H D 3.18 H (0.70-1.30) mg/dL Glucose 358 H 372 H (74-106) mg/dL Calcium 8.2 L (8.5-10.1) mg/dL C-Reactive Protein 6.74 H (0.0-0.3) mg/dL Vital Signs Temperature 36.5 C 06/09/19 13:20 Temperature Source Temporal Artery Scan 06/09/19 13:20 Pulse 56 L 06/09/19 13:20 Pulse 55 L 06/09/19 06:00 Respiratory Rate 20 06/09/19 13:20 Respiratory Effort 06/09/19 13:20 Respiratory Depth Normal 06/09/19 13:20 Respiratory Pattern Normal 06/09/19 13:20 Blood Pressure 150/64 H 06/09/19 13:20 Blood Pressure Mean 92 06/09/19 13:20 Blood Pressure Position Supine 06/09/19 13:20 Pulse Oximetry 99 06/09/19 13:20 Oxygen Delivery Method Nasal Cannula 06/09/19 13:20 Oxygen Flow Rate 1 06/09/19 13:20 Fraction of Inspired Oxygen (FIO2) 30 06/07/19 19:59 Pain Level 0 06/09/19 13:20 Comment 06/07/19 19:59 Intake & Output 06/08/19 06/09/19 06/09/19 23:59 11:59 23:59 Intake Total 1350.000 / 4710.000 491.666 / 691.666 200 / 691.666 Output Total 1650 / 3100 800 / 1000 200 / 1000 Balance -300.000 / 1610.000 -308.334 / -308.334 0 / -308.334 Weight 104.5 kg 103.1 kg Intake: IV 550.000 / 1950.000 131.666 / 131.666 Oral 800 / 2760 360 / 560 200 / 560 Output: Urine 700 / 2100 700 / 700 Stool 950 / 1000 100 / 300 200 / 300 Other: Urine Color Yellow Yellow Urine Appearance Clear Clear Sediment Comment No change. pt has indwelling ruiz catheter, patent and draining clear nelli urine pt has indwelling ruiz catheter, patent and draining clear nelli urine Stool Occult Blood Negative Negative Negative Stool Size Moderate Large Stool Characteristics Soft Soft Formed Liquid Liquid Laboratory Results WBC 6.38 k/cumm (4.4-10.8) 06/09/19 06:15 RBC 4.26 m/cumm (4.50-6.00) L 06/09/19 06:15 Hgb 9.4 g/dL (13.5-17.5) L 06/09/19 06:15 Hct 34.5 % (40.0-50.0) L 06/09/19 06:15 MCV 81.0 fL (80-95) 06/09/19 06:15 MCH 22.1 pg (27.0-33.0) L 06/09/19 06:15 MCHC 27.2 g/dL (32.0-36.0) L 06/09/19 06:15 RDW 17.4 % (11.8-14.1) H 06/09/19 06:15 Plt Count 295 x1000/uL (130-400) 06/09/19 06:15 MPV 10.8 fL (8.0-11.0) 06/09/19 06:15 Immature Gran % 0.2 % 06/09/19 06:15 Neutrophils % 94.8 06/09/19 06:15 Lymphocytes % 3.3 06/09/19 06:15 Monocytes % 1.7 06/09/19 06:15 Eosinophils % 0.0 06/09/19 06:15 Basophils % 0.0 06/09/19 06:15 Absolute Neutrophils 6.05 k/cumm (1.2-6.7) 06/09/19 06:15 Absolute Lymphocytes 0.21 k/cumm (1.2-3.4) L 06/09/19 06:15 Absolute Monocytes 0.11 k/cumm (0.11-0.7) 06/09/19 06:15 Absolute Eosinophils 0.00 k/cumm (0.0-0.7) 06/09/19 06:15 Absolute Basophils 0.00 k/cumm (0.0-0.2) 06/09/19 06:15 Differential Comment Rbc morph reviewed 06/09/19 06:15 RBC Morphology See below 06/09/19 06:15 Polychromasia Present 06/07/19 15:50 Hypochromasia 2+ 06/09/19 06:15 Poikilocytosis 1+ 06/09/19 06:15 Basophilic Stippling 1+ 06/07/19 15:50 Anisocytosis 3+ 06/09/19 06:15 Microcytosis 2+ 06/09/19 06:15 Tear Drop Cells 2+ 06/07/19 15:50 Ovalocytes 3+ 06/09/19 06:15 Stomatocytes 3+ 06/07/19 15:50 PT 10.7 sec (9.3-11.0) 06/07/19 15:50 INR 1.1 (0.9-1.1) 06/07/19 15:50 APTT 23.4 sec (21.0-31.4) 06/07/19 15:50 VBG pH 7.41 (7.35-7.45) 06/08/19 08:15 VBG pCO2 49 mm/Hg (34-47) H 06/08/19 08:15 VBG pO2 86 mm/Hg (28-44) H 06/08/19 08:15 VBG HCO3 31 mmol/L (22-28) H 06/08/19 08:15 VBG Total CO2 29 mmol/L (22-29) 06/08/19 08:15 VBG O2 Saturation 98 % (70-80) H 06/08/19 08:15 VBG Base Excess 6.2 mmol/L (-3-3) H 06/08/19 08:15 Sodium 137 mmol/L (136-145) 06/09/19 12:30 Potassium 5.0 mmol/L (3.5-5.1) 06/09/19 12:30 Chloride 98 mmol/L (98-107) 06/09/19 12:30 Carbon Dioxide 32.6 mmol/L (21.0-32.0) H 06/09/19 12:30 Anion Gap 6.4 mmol/L (3-11) 06/09/19 12:30 BUN 97 mg/dL (7-18) H* 06/09/19 12:30 Creatinine 3.18 mg/dL (0.70-1.30) H 06/09/19 12:30 Estimated GFR/1.73 m2 20.06 (mL/min/1.73m2) 06/09/19 12:30 Glucose 372 mg/dL (74-106) H 06/09/19 12:30 Lactate 1.8 mmol/L (0.6-1.4) H 06/08/19 08:15 Calcium 8.6 mg/dL (8.5-10.1) 06/09/19 12:30 Magnesium 1.8 mg/dL (1.8-2.4) 06/09/19 06:15 Ferritin 106 ng/mL (26-388) 06/07/19 15:50 Total Bilirubin 0.8 mg/dL (0.2-1.0) 06/07/19 15:50 AST 27 U/L (15-37) 06/07/19 15:50 ALT 18 U/L (16-63) 06/07/19 15:50 Alkaline Phosphatase 94 U/L (46-116) 06/07/19 15:50 Lactate Dehydrogenase 270 U/L (85-227) H 06/07/19 15:50 Troponin I < 0.05 ng/Ml (<0.06) 06/07/19 15:50 C-Reactive Protein 6.74 mg/dL (0.0-0.3) H 06/09/19 06:15 NT-Pro-B Natriuret Pep 3144 pg/mL (<300) H 06/07/19 15:50 Total Protein 7.1 g/dL (6.4-8.2) 06/07/19 15:50 Albumin 2.9 g/dL (3.4-5.0) L 06/07/19 15:50 Procalcitonin 1.6 ng/mL 06/07/19 15:50 Urine Color Yellow (Yellow) 06/07/19 16:15 Urine Clarity Cloudy (Clear) 06/07/19 16:15 Urine pH 6.0 (5-8) 06/07/19 16:15 Ur Specific [place] 1.015 (1.005-1.025) 06/07/19 16:15 Urine Protein 100 mg/dL (Negative) H 06/07/19 16:15 Urine Ketones Negative mg/dL (Negative) 06/07/19 16:15 Urine Blood Moderate (Negative) H 06/07/19 16:15 Urine Nitrite Positive (Negative) H 06/07/19 16:15 Urine Bilirubin Negative (Negative) 06/07/19 16:15 Urine Urobilinogen 0.2 EU/dL (Up TO 0.2) 06/07/19 16:15 Ur Leukocyte Esterase Large (Negative) H 06/07/19 16:15 Urine RBC HPF (0-2) 06/07/19 16:15 Urine WBC >50 HPF (0-5) H 06/07/19 16:15 Ur Epithelial Cells Negative HPF (Negative) 06/07/19 16:15 Urine Crystals Not Applicable 06/07/19 16:15 Urine Bacteria Packed HPF (Negative) 06/07/19 16:15 Urine Casts 10-20 coarsegranular LPF (Negative) 06/07/19 16:15 Urine Mucus Not Applicable 06/07/19 16:15 Urine Other Many renal (Negative) 06/07/19 16:15 Ur Culture Indicated? Yes 06/07/19 16:15 Urine Glucose Negative mg/dL (Negative) 06/07/19 16:15 Coronavirus (PCR) Negative (Negative) 06/07/19 17:15
[2019-06-09] MEDS: VANCOMYCIN 1,000 MG in Normal Saline 250 ML 166.667 MG IVPB (14:14)
[2019-06-09] MEDS: PIPERACILLIN/TAZO 3.375 GM in Normal Saline 50 ML IVPB ×2 (16:48→22:00)
--- NOTE | 2019-06-09 16:49 | CMPROGNOTE_ITS ---
- If Service Date Differs Date of service: 06/09/19 Time of Service: 16:49 Care Management Progress Note S/O: Brendan was sitting up in bed when CM met with him. He reported that he was feeling better today than when he arrived. CM discussed him having a conversation with Palliative care regarding health care goals and wishes. He stated that he is agreeable to discussing this with them. Dr. Horowitz will see him this afternoon, he is well known to her. CM will continue to follow. A: Brendan is a 59 year old male admitted to [facility] on 06/07/19 with Sepsis from UTI, Acute Adrenal Crisis and encephalopathy. P: Brendan will return to the [facility] when medically cleared, which is where he resides. He will be transported via [facility] w/[facility] van, coordinated by KATELYN. CM will communicate with the [facility] regarding his disposition. CM will continue to follow.
--- NOTE | 2019-06-09 17:36 | W.PALLCONSUL ---
Date of service: 06/09/19 Time of Service: 17:36 History of Present Illness Narrative: I was asked to see Brendan Murillo regarding his goals of care and CODE STATUS. I have known him for almost 20 years as his PCP, while he has been at the [facility], and different palliative visits. Over this time we have discussed goals of care and CODE STATUS on numerous occasions Recently he has been to the hospital 3 times in the last 3 weeks. He continues to come in with sepsis, blood pressure problems, and to rule out CO VID . Most recent history is below History of Present Illness History of Present Illness Chief Complaint: lethargy Narrative: 59 male with multiple problems, including COPD, CHF and hypoventilation. Sent for altered mental status. In ER findings of note for fever, obtundation, venous pCO2 97, white count 13.7 and CXR with bibasilar opacities (pneumonia vs atelectasis, as well as pyuria. Given Vanco, Zosyn, steroids and Duoneb with improvement in level of alertness and decrease pCO2 to 76. Flu and COVID swabs obtained, admitted for further management. When I asked the patient why he was in his response was I do not like it at the [facility]. He states that many times he does not get the care he thinks he should. He is concerned because there is new traveling nurses coming in and he states that he often times they are not up to par. He did say some racially slurring descriptions of some of the people. He states they have it out for me When I asked him if he was sick he says he is really not sure why he is here. He says they just sent him. He is glad to be in his favorite room which is room 222. He also feels that the nurses are much more attentive and give him better care here than he has gotten in his 7 years at the senior care. I asked him what his goals were. He states he wants to move in with the family who will take care of him. He has been at [facility] for 7 years and has had multiple multiple admissions including a CPR arrest, multiple sepsis due to indwelling catheters at times, colostomies, wounds on both his buttocks and his feet, gallbladder catheter, etc. he also has severe decaying teeth. I asked why he went into the [facility] and he said because he could not walk well. Since that time he has become much more bedbound and does require multiple person assist. I think it is been about 3 years since he can remember walking down the flores at the [facility]. When I asked him how 1 family could possibly take care of him with all of his needs he said that he could do much of the care himself. I brought up the fact that he is critical of the nurses for not helping him more. He said specifically that he cannot do things like wipe his bottom, clean himself up, do his bandages, empty his colostomy, change positions. He would expect this new family to take him on to do all of these chores. He also states that they cannot draw blood at the [facility] and often times have to transport him to the hospital in order to get blood drawn. I asked him how he would do that given his present condition. His reply was that he would buy the family a car. He again emphatically stated that he is not ready to give up. He does not want to become a DNR/DNI and just have his care done at the [facility]. He truly likes coming to [facility] it gives him a break from the senior care Consults Consult date: 06/09/19 Requesting physician: Priscila Canela Assessment and Plan Assessment and plan (1) Pulmonary hypertension: Status: Acute (2) Sepsis: Status: Acute (3) Respiratory failure: Status: Acute (4) Fever: Status: Acute (5) CHF (congestive heart failure): Status: Chronic (6) Advanced care planning/counseling discussion: Status: Acute Assessment and plan: I am glad to see that Lorena is feeling better than when he first came in. Many of his numbers are turning around. Unfortunately this is his third time through this scenario in 3 weeks. We talked at length about where he was at 15 years ago and 7 years ago versus today. He still has the idea that he is going to leave here find a family to live with who will care for him. He does not see any barriers such as the fact that he has near total care needs, transportation would be an issue, and payment source etc. he still feels like all of these things could be figured out. I did talk frankly about the unlikelihood that there would be a family that would be able to attend to all of his needs. I said that he would most likely need institutionalization for the rest of his life due to his high needs. He thought that he was not that high of need and that he could do most of his things on his own. But yet he does admit that it is difficult for him when the [place] etc. do not come when he calls because he needs things done such as turning wiping his bottom etc. We left it that his CODE STATUS was as it has been, full code. I did offer to come back and see him again after he had some time to think. I do not know that it is in his best interest to accommodate him when he comes into the hospital so that he gets his favorite room favorite nurses etc. he sees [facility] as a means to get away from the [facility] (even though he gets fine care from the [facility]). When I cared for him at the [facility] he had said on multiple occasions that he just needed a break and wanted to go to the hospital for a while. Review of Systems Narrative: He states he is feeling better. He has some sore hands because of his multiple fingersticks and blood draws. He states that there is a lot more blood draws at the hospital. Still he would rather be here than at the [facility]. [facility] Medical History Acromegaly (Chronic) Acute on chronic kidney failure (Resolved) Adrenal insufficiency (Chronic) Ambulatory dysfunction (Chronic) Anemia (Chronic) Atrial flutter, paroxysmal (Chronic) Back pain (Chronic 06/21/13) CAD (coronary artery disease) (Chronic) Cardiopulmonary arrest with successful resuscitation (Resolved) Cholelithiasis (Chronic) Chronic anxiety (Chronic) Chronic bipolar disorder (Chronic) a. With history of psychosis. Chronic cholecystitis (Chronic) Chronic insomnia (Chronic) Chronic pain (Chronic) On both Methadone and Fentanyl as well as Ultram and Naproxen. CKD (chronic kidney disease) (Chronic) Complicated UTI (urinary tract infection) (Resolved) Diabetes mellitus (Chronic) Diabetic foot ulcer (Chronic) Diabetic ulcer of toe associated with diabetes mellitus due to underlying condition, with bone involvement without evidence of necrosis (Inactive) 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 (Resolved) Dyslipidemia (Chronic) Elevated troponin I level (Resolved) Endocarditis due to Staphylococcus (Resolved) Heme positive stool (Resolved) Hemorrhagic cystitis (Chronic) Hyperkalemia (Resolved) Hypertension (Chronic) Hypomagnesemia (Chronic) Hypothyroidism (Chronic) Impaired mobility and ADLs (Chronic) Inability to get out of bed (Chronic 06/21/13) Lactic acidosis (Resolved) MRSA bacteremia (Resolved) Obesity (Chronic) a. Obesity though he has had significant weight loss since last seen. Osteoarthritis of both knees (Chronic) Severe. a. Eymu-wi-epur bilateral knees. 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 2 diabetes mellitus (Resolved) Palliative care encounter (Chronic) DObbertin Pedal edema (Chronic) Poor self care (Chronic 06/21/13) Poorly controlled type 2 diabetes mellitus with circulatory disorder (Chronic) Presence of IVC filter (Acute) Pulmonary hypertension (Chronic) Rheumatoid arthritis (Chronic) Sepsis (Resolved) Septic arthritis of elbow, right (Inactive) Toxic metabolic encephalopathy (Resolved) Toxic metabolic encephalopathy (Resolved) Ulcerative colitis (Chronic) UTI (urinary tract infection) (Resolved) UTI (urinary tract infection) due to Enterococcus (Resolved) Surgical History Arthroplasty of knee (Resolved 03/18/12) irrigation and lavage right Fracture, Open Treatment (Resolved) [place] [place]IF RIGHT DISTAL HUMERUS FRACTURE History of insertion of T-tube into biliary tract (Chronic) S/P colectomy (Chronic) Social History Smoking/Tobacco Use Status: Former Tobacco Use Alcohol Intake: former Drug use: Rarely Substance use type: marijuana Housing: senior care Do you feel safe at home: Yes Do you feel safe in your relationship?: Yes Additional Social history: Living at [facility] in [place] Exam Narrative Exam Narrative: He is lying in bed. He is oriented x3. He remembers many of our past conversations. He also remembers clearly that Dr. Batres the medical auditor at the [facility] came in to talk to him about this 2 weeks ago. Const General: cooperative, no acute distress, disheveled, frail appearing and ill appearing Nutritional Appearance: overweight (yet arms and legs thin) Orientation: oriented x3 HENTN Head: normal to inspection Ears: hearing grossly normal bilaterally and external ears normal Teeth and gingiva: poor dentition Eyes Alignment and Position: alignment normal Neck Neck: no lymphadenopathy Resp Effort & Inspection: normal respiratory effort and able to speak in complete sentences Auscultation: abnormal I/E ratio and diminished lung sounds Cardio Rate: regular rate Rhythm: regular rhythm Heart Sounds: murmur GI Inspection: incision (colostomy) Palpation: soft and no hepatosplenomegaly Other: catherter in place. Urine pale yellow Skin General skin exam: atrophy, dry skin, pallor and scars Hair: brittle Nails: dystrophic Neuro General: patient oriented x3 Speech: speech normal Extrem General: edema and muscle atrophy Results Last Vital Signs Temp 97.7 F 06/09/19 15:50 Pulse 57 L 06/09/19 15:50 Resp 28 H 06/09/19 15:50 BP 138/72 06/09/19 15:50 Pulse Ox 99 06/09/19 15:50 Labs Result diagrams: 06/10/19 06:25 06/10/19 06:25 Labs: Laboratory Results - last 24 hr 06/09/19 06/09/19 06/09/19 06:15 06:15 12:30 WBC 6.38 RBC 4.26 L Hgb 9.4 L Hct 34.5 L MCV 81.0 MCH 22.1 L MCHC 27.2 L RDW 17.4 H Plt Count 295 MPV 10.8 Immature Gran % 0.2 Neutrophils % 94.8 Lymphocytes % 3.3 Monocytes % 1.7 Eosinophils % 0.0 Basophils % 0.0 Absolute Neutrophils 6.05 Absolute Lymphocytes 0.21 L Absolute Monocytes 0.11 Absolute Eosinophils 0.00 Absolute Basophils 0.00 Differential Comment Rbc morph reviewed RBC Morphology See below Hypochromasia 2+ Poikilocytosis 1+ Anisocytosis 3+ Microcytosis 2+ Ovalocytes 3+ Sodium 137 137 Potassium 5.2 H 5.0 Chloride 99 98 Carbon Dioxide 33.0 H 32.6 H Anion Gap 5.0 6.4 BUN 92 H* D 97 H* Creatinine 3.14 H D 3.18 H Estimated GFR/1.73 m2 20.35 20.06 Glucose 358 H 372 H Calcium 8.2 L 8.6 Magnesium 1.8 C-Reactive Protein 6.74 H
[2019-06-09 17:37] LABS: Vancomycin, Trough 36.8 ug/mL (10.0-20.0)
[2019-06-09] MEDS: LORazepam 1 MG TAB PO (21:33)
[2019-06-09] MEDS: Melatonin 3 MG TAB 9 MG PO (21:35)
[2019-06-09] MEDS: Insulin Glargine 300 UNITS/3 ML PEN 25 UNITS SC (21:38)
[2019-06-10] VITALS (36 sets, daily range): BP systolic 153–177; BP diastolic 71–88; PULSE 44–76; RESP 11–30; TEMP 36.4–36.9; O2SAT 92–100
[2019-06-10] MEDS: methylPREDNISolone SUCC 40 MG VIAL IVP ×2 (00:46→12:17)
[2019-06-10] MEDS: PIPERACILLIN/TAZO 3.375 GM in Normal Saline 50 ML IVPB ×2 (04:10→10:13)
[2019-06-10 06:49] LABS: Abs Immature Grans 0.01 k/cumm (0.0-0.09); Absolute Lymphocyte Count 0.26 k/cumm (1.2-3.4); Absolute Monocyte Count 0.16 k/cumm (0.11-0.7); Absolute Neutrophil Count 5.12 k/cumm (1.2-6.7); HCT 37.3 % (40.0-50.0); HGB 10.2 g/dL (13.5-17.5); Immature Grans % 0.2 %; Lymphocytes % 4.7; Mean Corp. HGB Concentration 27.3 g/dL (32.0-36.0); Mean Corpuscular Volume 80.4 fL (80-95); Mean Platelet Volume 10.7 fL (8.0-11.0); Monocytes % 2.9; Neutrophils % 92.2; Platelet Count 306 x1000/uL (130-400); RBC 4.64 m/cumm (4.50-6.00); RBC Distribution Width 17.2 % (11.8-14.1); White Blood Cell Count 5.55 k/cumm (4.4-10.8)
[2019-06-10 07:08] LABS: Anion Gap 3.8 mmol/L (3-11); C-Reactive Protein 3.52 mg/dL (0.0-0.3); CO2 34.2 mmol/L (21.0-32.0); CREATININE 3.02 mg/dL (0.70-1.30); Calcium 8.5 mg/dL (8.5-10.1); Chloride 100 mmol/L (98-107); Estimated GFR 21.29 (mL/min/1.73m2); Glucose 303 mg/dL (74-106); Magnesium 1.9 mg/dL (1.8-2.4); Potassium 4.8 mmol/L (3.5-5.1); Sodium 138 mmol/L (136-145)
[2019-06-10 07:12] LABS: BUN 97 mg/dL (7-18)
[2019-06-10 08:16] LABS: BE 8.6 mmol/L (-3-3); HCO3 35 mmol/L (22-28); pH 7.33 (7.35-7.45); pO2 76 mmHg (83-108); sO2 95 % (94-98); tCO2 33 mmol/L (22-29)
[2019-06-10 08:21] LABS: FIO2L 1 L; Site Right Radial; pCO2 65 mmHg (34-47)
[2019-06-10] MEDS: Insulin Aspart 300 UNITS/3 ML PEN SC ×4 (08:32→22:00)
[2019-06-10] MEDS: Insulin Aspart 300 UNITS/3 ML PEN 10 UNITS SC ×3 (08:33→17:31)
[2019-06-10] MEDS: Metoprolol 25 MG TAB PO ×2 (08:34→20:01)
[2019-06-10] MEDS: Pantoprazole 40 MG TABCR PO (08:34)
[2019-06-10] MEDS: amLODIPine 10 MG TAB PO (08:34)
[2019-06-10] MEDS: Apixaban 2.5 MG TAB PO ×2 (08:34→20:01)
[2019-06-10] MEDS: cloNIDine 0.1 MG TAB PO ×3 (08:34→20:01)
[2019-06-10] MEDS: Insulin Glargine 300 UNITS/3 ML PEN 30 UNITS SC ×2 (08:35→20:02)
[2019-06-10] MEDS: predniSONE 10 MG, predniSONE 5 MG 15 MG PO (08:39)
--- NOTE | 2019-06-10 12:32 | DM INPTCON_ITS ---
Date of service: 06/09/19 Time of Service: 14:00 Diabetes Inpatient Consult DESCRIPTION/ASSESSMENT: 59 y/o M w/ hx DM2, CKD, CHF, obesity, dehydration, hx PNA, pedal edema. Noted: L leg wound. On Juvan per MD orders. Rec: DC Juvan and replace with Proheal 30ml BID to provide 30 g/pro/day to help w/ wound healing. Patient is aware and agreeable. Labs (06/07) reveal BG 358 (H). This is r/t hx uncontrolled DM2, on predisone and abx, dx anemia, and hx poor diet choices at [facility]. Noted: at risk for fluid imbalance r/t edema and diuretic use. Educated patient on basics of CHO counting, definition of simple and complex CHO r/t BG spikes, relationship b/t CKD and DM, and provided educational literature from [facility] on menu options, label reading tips and review material from our discussion . Currently on insulin and has been advised to follow up w/MD here at [facility] and at the [facility] when he returns regarding dosage and timing. Also suggested that he consult an tempering kiln tender after his discharge and the CDE here at [facility] when she returns in July to get some counseling on DM self management. Left patient with contact info for both in house RD's for any questions related to nutrition and DM. INTERVENTION: DM Edu provided, Recommend: Pro Heal supplement 30ml BID to promote wound healing, enc adequate fluids PLAN: Patient advised to F/U with MD regarding proper insulin use, refer to literature provided to help with CHO counting and food choices. Continue to work with CDM counting CHO on daily menu choices, Encouraged patient to contact either RD w/ any F/U questions r/t nutrition and DM. Time Spent in Nutritional Counseling and Treatment: 15 minutes
--- NOTE | 2019-06-10 13:29 | PGE_ITS ---
Date of Service Date of service: 06/10/19 Time of Service: 13:29 Assessment and Plan Assessment and plan (1) Sepsis: Status: Acute Assessment and plan: Due to HCAP/E. Coli UTI, POA. Blood cultures: NGTD. E. Coli is resistant to Zosyn - will switch from zosyn to cefriaxone. Continue vancomycin for PNA as has a h/o MRSA PNA. Start to taper stress dose steroids. Will keep in ICU due to this am's episode (2) HCAP (healthcare-associated pneumonia): Status: Acute Assessment and plan: As above (3) UTI (urinary tract infection): Status: Acute Assessment and plan: Due to E. Coli, Present on admission. Zosyn is being changed to ceftriaxone today. (vanco is being predominantly used for PNA). Ruiz changed 06/08/2019. (4) Atrial fibrillation with rapid ventricular response: Status: Chronic Assessment and plan: Now back to NSR. Continue eliquis for anticoagulation (5) Acute kidney injury superimposed on chronic kidney disease: Status: Acute Assessment and plan: Improved with diuresis. Echo does show pulmonary hypertension and slightly reduced EF, explaining why that would be. Continue lasix gtt. Trend BMP. Change abx to treat infection appropriately. (6) Acute on chronic respiratory failure with hypoxia and hypercapnia: Status: Resolved Assessment and plan: In setting of adrenal crisis and noncompliance with BiPAP. Another small episode of this happened this morning. As above - encourage BiPAP use. Keep in ICU. (7) Toxic metabolic encephalopathy: Status: Resolved Assessment and plan: Due to CO2 narcosis and adrenal insufficiency, with recurrence this morning when noncompliant with BiPAP. Patient must wear BiPAP or reconsider his code status, which he is not willing to do - palliative care consulted. Taper stress dose steroids. (8) Diabetes mellitus: Status: Chronic Assessment and plan: with steroid induced hyperglycemia. Increase long acting insulin again, continue scheduled prandial insulin and SSI Qualifiers: Diabetes mellitus type: type 2 Diabetes mellitus long term acute care registered nurse insulin use: with care home use Diabetes mellitus complication status: with neurologic complications Diabetes mellitus complication detail: with polyneuropathy Qualified Code(s): E11.42 - Type 2 diabetes mellitus with diabetic polyneuropathy; Z79.4 - technician terminal and repeater (current) use of insulin (9) Pulmonary hypertension: Status: Acute Assessment and plan: No doubt related to JESSICA. Continue diuresis, encourage wearing of BiPAP. (10) DVT prophylaxis: Status: Acute Assessment and plan: On therapeutic eliquis (11) Discharge planning issues: Status: Acute Assessment and plan: Full code. Total Critical Care Time 40 minutes. Subjective Subjective Interval history since last seen: Brendan took his BiPAP off this morning and was rather lethargic by this morning as he slept without it. His mental status normalized with putting it back on. His ABG revealed pCO2 of 65 with pH of 7.33 (his usual pCO2 is in the 50's). He denies dizziness, chest pain, shortness of breath, nausea. Requests nebulizer treatment. Requests something for anxiety - states he gets very anxious at night, and that's what makes it hard for him to fall asleep. Exam Narrative Exam Narrative: General: Obese male with a Cushinoid appearance, A&Ox3, wide awake and at his baseline alertness when I see him, no dyspnea seen HEENT: EOMI, MMM Heart: RRR, + NUVIA Lungs: Diminished breath sounds B Abdomen: soft, nontender, nondistended, + ostomy Extremities: +2 BLE edema (slightly better today), chronic venous stasis dermatitis Objective Objective Clinical Data: Abnormal lab results 06/09/19 06/10/19 06/10/19 Range/Units 17:08 06:25 06:25 Hgb 10.2 L (13.5-17.5) g/dL Hct 37.3 L (40.0-50.0) % MCH 22.0 L (27.0-33.0) pg MCHC 27.3 L (32.0-36.0) g/dL RDW 17.2 H (11.8-14.1) % Absolute Lymphocytes 0.26 L (1.2-3.4) k/cumm ABG pH (7.35-7.45) ABG pCO2 (34-47) mmHg ABG pO2 (83-108) mmHg ABG HCO3 (22-28) mmol/L ABG Total CO2 (22-29) mmol/L ABG Base Excess (-3-3) mmol/L Carbon Dioxide 34.2 H (21.0-32.0) mmol/L BUN 97 H* (7-18) mg/dL Creatinine 3.02 H (0.70-1.30) mg/dL Glucose 303 H (74-106) mg/dL C-Reactive Protein 3.52 H (0.0-0.3) mg/dL Vancomycin Trough 36.8 H* (10.0-20.0) ug/mL 06/10/19 Range/Units 08:10 Hgb (13.5-17.5) g/dL Hct (40.0-50.0) % MCH (27.0-33.0) pg MCHC (32.0-36.0) g/dL RDW (11.8-14.1) % Absolute Lymphocytes (1.2-3.4) k/cumm ABG pH 7.33 L (7.35-7.45) ABG pCO2 65 H* (34-47) mmHg ABG pO2 76 L (83-108) mmHg ABG HCO3 35 H (22-28) mmol/L ABG Total CO2 33 H (22-29) mmol/L ABG Base Excess 8.6 H (-3-3) mmol/L Carbon Dioxide (21.0-32.0) mmol/L BUN (7-18) mg/dL Creatinine (0.70-1.30) mg/dL Glucose (74-106) mg/dL C-Reactive Protein (0.0-0.3) mg/dL Vancomycin Trough (10.0-20.0) ug/mL Vital Signs Temperature 36.9 C 06/10/19 12:11 Temperature Source Temporal Artery Scan 06/10/19 12:11 Pulse 55 L 06/10/19 12:11 Pulse 53 L 06/10/19 12:00 Respiratory Rate 25 H 06/10/19 12:11 Respiratory Effort 06/10/19 12:11 Respiratory Depth Shallow 06/10/19 12:11 Respiratory Pattern Tachypnea 06/10/19 12:11 Blood Pressure 160/88 H 06/10/19 08:58 Blood Pressure Mean 112 06/10/19 08:58 Blood Pressure Position Supine 06/10/19 04:25 Pulse Oximetry 97 06/10/19 12:11 Oxygen Delivery Method Bi-pap 06/10/19 08:58 Oxygen Flow Rate 1 06/10/19 08:58 Fraction of Inspired Oxygen (FIO2) 1 04/16/20 12:30 Pain Level 0 06/10/19 12:11 Comment 06/07/19 19:59 Intake & Output 06/09/19 06/10/19 06/10/19 23:59 11:59 23:59 Intake Total 990 / 1481.666 684.458 / 939.666 255.208 / 939.666 Output Total 1100 / 2350 1750 / 1750 Balance -110 / -868.334 -1065.542 / -810.334 255.208 / -810.334 Weight 100.7 kg Intake: IV 300 / 431.666 204.458 / 219.666 15.208 / 219.666 Oral 690 / 1050 480 / 720 240 / 720 Output: Urine 900 / 2050 1500 / 1500 Stool 200 / 300 250 / 250 Other: Urine Color Light Nelli Yellow Urine Appearance Clear Clear Comment has indwelling ruiz catheter patent and draining clear nelli urine has indwelling ruiz catheter patent and draining cyu has indwelling ruiz catheter patent and draining cyu Stool Occult Blood Negative Negative Stool Size Copious Copious Stool Characteristics Soft Soft Brown Laboratory Results WBC 5.55 k/cumm (4.4-10.8) 06/10/19 06:25 RBC 4.64 m/cumm (4.50-6.00) 06/10/19 06:25 Hgb 10.2 g/dL (13.5-17.5) L 06/10/19 06:25 Hct 37.3 % (40.0-50.0) L 06/10/19 06:25 MCV 80.4 fL (80-95) 06/10/19 06:25 MCH 22.0 pg (27.0-33.0) L 06/10/19 06:25 MCHC 27.3 g/dL (32.0-36.0) L 06/10/19 06:25 RDW 17.2 % (11.8-14.1) H 06/10/19 06:25 Plt Count 306 x1000/uL (130-400) 06/10/19 06:25 MPV 10.7 fL (8.0-11.0) 06/10/19 06:25 Immature Gran % 0.2 % 06/10/19 06:25 Neutrophils % 92.2 06/10/19 06:25 Lymphocytes % 4.7 04/16/20 06:25 Monocytes % 2.9 06/10/19 06:25 Eosinophils % 0.0 06/10/19 06:25 Basophils % 0.0 06/10/19 06:25 Absolute Neutrophils 5.12 k/cumm (1.2-6.7) 06/10/19 06:25 Absolute Lymphocytes 0.26 k/cumm (1.2-3.4) L 06/10/19 06:25 Absolute Monocytes 0.16 k/cumm (0.11-0.7) 06/10/19 06:25 Absolute Eosinophils 0.00 k/cumm (0.0-0.7) 06/10/19 06:25 Absolute Basophils 0.00 k/cumm (0.0-0.2) 06/10/19 06:25 Differential Comment Rbc morph reviewed 06/09/19 06:15 RBC Morphology See below 06/09/19 06:15 Polychromasia Present 06/07/19 15:50 Hypochromasia 2+ 06/09/19 06:15 Poikilocytosis 1+ 06/09/19 06:15 Basophilic Stippling 1+ 06/07/19 15:50 Anisocytosis 3+ 06/09/19 06:15 Microcytosis 2+ 06/09/19 06:15 Tear Drop Cells 2+ 06/07/19 15:50 Ovalocytes 3+ 06/09/19 06:15 Stomatocytes 3+ 06/07/19 15:50 PT 10.7 sec (9.3-11.0) 06/07/19 15:50 INR 1.1 (0.9-1.1) 06/07/19 15:50 APTT 23.4 sec (21.0-31.4) 06/07/19 15:50 ABG Sample Site Right radial 06/10/19 08:10 ABG pH 7.33 (7.35-7.45) L 06/10/19 08:10 ABG pCO2 65 mmHg (34-47) H* 06/10/19 08:10 ABG pO2 76 mmHg (83-108) L 06/10/19 08:10 ABG HCO3 35 mmol/L (22-28) H 06/10/19 08:10 ABG Total CO2 33 mmol/L (22-29) H 06/10/19 08:10 ABG O2 Saturation 95 % (94-98) 06/10/19 08:10 ABG Base Excess 8.6 mmol/L (-3-3) H 06/10/19 08:10 VBG pH 7.41 (7.35-7.45) 06/08/19 08:15 VBG pCO2 49 mm/Hg (34-47) H 06/08/19 08:15 VBG pO2 86 mm/Hg (28-44) H 06/08/19 08:15 VBG HCO3 31 mmol/L (22-28) H 06/08/19 08:15 VBG Total CO2 29 mmol/L (22-29) 06/08/19 08:15 VBG O2 Saturation 98 % (70-80) H 06/08/19 08:15 VBG Base Excess 6.2 mmol/L (-3-3) H 06/08/19 08:15 Oxygen Liter Flow 1 L 06/10/19 08:10 FiO2 Remstar bipap 11/5 % 06/10/19 08:10 Sodium 138 mmol/L (136-145) 06/10/19 06:25 Potassium 4.8 mmol/L (3.5-5.1) 06/10/19 06:25 Chloride 100 mmol/L (98-107) 06/10/19 06:25 Carbon Dioxide 34.2 mmol/L (21.0-32.0) H 06/10/19 06:25 Anion Gap 3.8 mmol/L (3-11) 06/10/19 06:25 BUN 97 mg/dL (7-18) H* 06/10/19 06:25 Creatinine 3.02 mg/dL (0.70-1.30) H 06/10/19 06:25 Estimated GFR/1.73 m2 21.29 (mL/min/1.73m2) 06/10/19 06:25 Glucose 303 mg/dL (74-106) H 06/10/19 06:25 Lactate 1.8 mmol/L (0.6-1.4) H 06/08/19 08:15 Calcium 8.5 mg/dL (8.5-10.1) 06/10/19 06:25 Magnesium 1.9 mg/dL (1.8-2.4) 06/10/19 06:25 Ferritin 106 ng/mL (26-388) 06/07/19 15:50 Total Bilirubin 0.8 mg/dL (0.2-1.0) 06/07/19 15:50 AST 27 U/L (15-37) 06/07/19 15:50 ALT 18 U/L (16-63) 06/07/19 15:50 Alkaline Phosphatase 94 U/L (46-116) 06/07/19 15:50 Lactate Dehydrogenase 270 U/L (85-227) H 06/07/19 15:50 Troponin I < 0.05 ng/Ml (<0.06) 06/07/19 15:50 C-Reactive Protein 3.52 mg/dL (0.0-0.3) H 06/10/19 06:25 NT-Pro-B Natriuret Pep 3144 pg/mL (<300) H 06/07/19 15:50 Total Protein 7.1 g/dL (6.4-8.2) 06/07/19 15:50 Albumin 2.9 g/dL (3.4-5.0) L 06/07/19 15:50 Procalcitonin 1.0 ng/mL 06/10/19 06:25 Urine Color Yellow (Yellow) 06/07/19 16:15 Urine Clarity Cloudy (Clear) 06/07/19 16:15 Urine pH 6.0 (5-8) 06/07/19 16:15 Ur Specific [place] 1.015 (1.005-1.025) 06/07/19 16:15 Urine Protein 100 mg/dL (Negative) H 06/07/19 16:15 Urine Ketones Negative mg/dL (Negative) 06/07/19 16:15 Urine Blood Moderate (Negative) H 06/07/19 16:15 Urine Nitrite Positive (Negative) H 06/07/19 16:15 Urine Bilirubin Negative (Negative) 06/07/19 16:15 Urine Urobilinogen 0.2 EU/dL (Up TO 0.2) 06/07/19 16:15 Ur Leukocyte Esterase Large (Negative) H 06/07/19 16:15 Urine RBC HPF (0-2) 06/07/19 16:15 Urine WBC >50 HPF (0-5) H 06/07/19 16:15 Ur Epithelial Cells Negative HPF (Negative) 06/07/19 16:15 Urine Crystals Not Applicable 06/07/19 16:15 Urine Bacteria Packed HPF (Negative) 06/07/19 16:15 Urine Casts 10-20 coarsegranular LPF (Negative) 06/07/19 16:15 Urine Mucus Not Applicable 06/07/19 16:15 Urine Other Many renal (Negative) 06/07/19 16:15 Ur Culture Indicated? Yes 06/07/19 16:15 Urine Glucose Negative mg/dL (Negative) 06/07/19 16:15 Vancomycin Trough 36.8 ug/mL (10.0-20.0) H* 06/09/19 17:08 Coronavirus (PCR) Negative (Negative) 06/07/19 17:15
[2019-06-10 14:16] LABS: Vancomycin, Trough 21.1 ug/mL (10.0-20.0)
[2019-06-10] MEDS: Gabapentin 300 MG CAP PO ×2 (14:48→20:01)
[2019-06-10] MEDS: cefTRIAXone 1 GM/50 ML BAG IVPB (14:48)
[2019-06-10] MEDS: VANCOMYCIN 1,000 MG in Normal Saline 250 ML 166.667 MG IVPB (16:02)
--- NOTE | 2019-06-10 16:07 | PT.INTREAT ---
Date of service: 06/10/19 Time of Service: 16:07 PT Notes Visit Reasons: SEPSIS FROM UTI,?PNA,ACUTE ADRENAL CRISIS,ENCEPHAL Inpatient Physical Therapy Treatment Note [facility] Date: 06/10/2019 PRECAUTIONS: Fall. Contact precautions. Activity as tolerated. SUBJECTIVE: Patient agreeable to PT consult after clarifying patient's goals with PT for this admission. He complained about both his knees hurting him during transfer activity. OBJECTIVE: Telemetry monitoring in place. Downing catheter in place. Left foot on a soft heel off-loading bootie. Colostomy bag in situ. PAIN: Minimal pain in bilateral knees with weight bearing. BED MOBILITY/TRANSFERS Rolling L/R: SBA Supine-sit: SBA with B UE support needed Sit-stand: CGA with moderate verbal cueing for hand placement and safe technique Stand-sit: CGA with moderate verbal cueing for hand placement and safe technique with anxiety over falling during movement transition Bed-Chair: CGA with moderate verbal cueing for hand placement and safe technique with anxiety over falling during movement transition GAIT Assistive Device: Front wheeled walker Weight bearing: Full weight bearing Assist: Minimal assist Distance: 8 steps Deviation: Decreased step height and length. Decreased tanya. Bilateral knee pain reported with weight bearing. Decreased dorsiflexion on bilateral ankles. ASSESSMENT: Patient requires extensive encouragement to participate in sessions. He does respond well to identifying specific goals and tries to work on it as much as he can as long as he is comfortable and is not in significant discomfort or pain. PLAN: Continue with PT POC as initially established. Will focus on increasing independence with transfer task performance and short ambulation of 15 feet with minimal assist using front wheeled walker. TREATMENT CODE/TIME: 34071 x 32 minutes beginning at 16:07 PM.
--- NOTE | 2019-06-10 16:20 | PDOC.CMPRO ---
- If Service Date Differs Date of service: 06/10/19 Time of Service: 16:20 Care Management Progress Note S/O: Brendan was sitting up in bed when CM met with him. He reported that he was feeling ok today. CM had a discussion regarding goals of care with Brendan, and asked how his conversation with Dr. Horowitz went yesterday. He stated that he did not understand what was being asked of him. CM spent time explaining code status as well as quality of life with him, answering questions when he had them. He reported that he does, in fact, desire to be a full code. He also reported that he does want to have quality of life. CM discussed the importance of participation in his own care in order to have a higher quality of life. CM will continue to follow. A: Brendan is a 59 year old male admitted to [facility] on 06/07/19 with Sepsis from UTI, Acute Adrenal Crisis and encephalopathy. P: Brendan will return to the [facility] when medically cleared, which is where he resides. He will be transported via RCT w/c van, coordinated by KATELYN. CM will communicate with the [facility] regarding his disposition. CM will continue to follow.
[2019-06-10] MEDS: Magnesium Chloride 64 MG TABCR PO (17:32)
[2019-06-10] MEDS: Ascorbic Acid 500 MG TAB 250 MG PO (20:01)
[2019-06-10] MEDS: Terazosin 2 MG CAP 4 MG PO (20:01)
[2019-06-10] MEDS: Melatonin 3 MG TAB 9 MG PO (21:53)
[2019-06-10] MEDS: Ferrous Sulfate 325 MG TAB PO (21:53)
[2019-06-10] MEDS: risperiDONE 1 MG TAB 2 MG PO (21:54)
[2019-06-11] VITALS (35 sets, daily range): BP systolic 141–164; BP diastolic 72–88; PULSE 50–82; RESP 11–28; TEMP 36.1–36.7; O2SAT 94–96
[2019-06-11] MEDS: methylPREDNISolone SUCC 40 MG VIAL IVP ×2 (00:28→12:12)
[2019-06-11] MEDS: Hydrocortisone 1% CR 30 GM TUBE TP (03:54)
[2019-06-11] MEDS: LORazepam 1 MG TAB PO (05:22)
[2019-06-11 06:45] LABS: Absolute Lymphocyte Count 0.14 k/cumm (1.2-3.4); Absolute Monocyte Count 0.11 k/cumm (0.11-0.7); Absolute Neutrophil Count 4.72 k/cumm (1.2-6.7); HCT 34.4 % (40.0-50.0); HGB 9.4 g/dL (13.5-17.5); Lymphocytes % 2.8; Mean Corp. HGB Concentration 27.3 g/dL (32.0-36.0); Mean Corpuscular Hemoglobin 21.8 pg (27.0-33.0); Mean Corpuscular Volume 79.8 fL (80-95); Mean Platelet Volume 9.6 fL (8.0-11.0); Monocytes % 2.2; Platelet Count 259 x1000/uL (130-400); RBC 4.31 m/cumm (4.50-6.00); White Blood Cell Count 4.97 k/cumm (4.4-10.8)
[2019-06-11 07:04] LABS: CREATININE 2.86 mg/dL (0.70-1.30); Calcium 8.7 mg/dL (8.5-10.1); Chloride 102 mmol/L (98-107); Estimated GFR 22.67 (mL/min/1.73m2); Glucose 330 mg/dL (74-106); Magnesium 1.9 mg/dL (1.8-2.4); Potassium 4.5 mmol/L (3.5-5.1); Sodium 139 mmol/L (136-145)
[2019-06-11 07:05] LABS: BUN 92 mg/dL (7-18)
[2019-06-11] MEDS: predniSONE 10 MG, predniSONE 5 MG 15 MG PO (08:15)
[2019-06-11] MEDS: amLODIPine 10 MG TAB PO (08:15)
[2019-06-11] MEDS: Apixaban 2.5 MG TAB PO ×2 (08:16→20:17)
[2019-06-11] MEDS: Cyanocobalamin 500 MCG TAB 1000 MCG PO (08:16)
[2019-06-11] MEDS: Pantoprazole 40 MG TABCR PO (08:16)
[2019-06-11] MEDS: cloNIDine 0.1 MG TAB PO ×3 (08:16→20:17)
[2019-06-11] MEDS: Levothyroxine 25 MCG TAB 12.5 MCG PO (08:17)
[2019-06-11] MEDS: Gabapentin 300 MG CAP PO ×3 (08:17→20:16)
[2019-06-11] MEDS: Metoprolol 25 MG TAB PO ×2 (08:17→20:17)
[2019-06-11] MEDS: Venlafaxine 37.5 MG CAPCR PO (08:17)
[2019-06-11] MEDS: Terazosin 2 MG CAP 4 MG PO ×2 (08:17→20:16)
[2019-06-11] MEDS: Ascorbic Acid 500 MG TAB 250 MG PO ×2 (08:18→20:17)
[2019-06-11] MEDS: Cetirizine 10 MG TAB PO (08:18)
[2019-06-11] MEDS: Insulin Aspart 300 UNITS/3 ML PEN 10 UNITS SC ×3 (08:19→16:44)
[2019-06-11] MEDS: Insulin Glargine 300 UNITS/3 ML PEN 40 UNITS SC ×2 (08:27→21:02)
--- NOTE | 2019-06-11 09:50 | OT.INIE ---
Occupational Therapy Notes Inpatient Occupational Therapy Evaluation Date: 06/11/19 Referring Doctor:Priscila Canela MD OT Orders: Non-Urgent Precautions: Fall, Standard, Full PATIENT PROFILE/ADMITTING DIAGNOSIS: Pt is a 59 year old male who presented to the ER on 06/06 from [facility] with respiratory failure and HCAP. He was admitted from the ER to the ICU with the following dx; Sepsis, HCAP, UTI, A-Fib, JESUS, CKD, respiratory failure with hypoxia, toxic metabolic encephalopathy, DM, pulmonary HTN. Past Medical History: Medical History Acromegaly (Chronic) Acute on chronic kidney failure (Resolved) Adrenal insufficiency (Chronic) Ambulatory dysfunction (Chronic) Anemia (Chronic) Atrial flutter, paroxysmal (Chronic) Back pain (Chronic 06/21/13) CAD (coronary artery disease) (Chronic) Cardiopulmonary arrest with successful resuscitation (Resolved) Cholelithiasis (Chronic) Chronic anxiety (Chronic) Chronic bipolar disorder (Chronic) a. With history of psychosis. Chronic cholecystitis (Chronic) Chronic insomnia (Chronic) Chronic pain (Chronic) On both Methadone and Fentanyl as well as Ultram and Naproxen. CKD (chronic kidney disease) (Chronic) Complicated UTI (urinary tract infection) (Resolved) Diabetes mellitus (Chronic) Diabetic foot ulcer (Chronic) Diabetic ulcer of toe associated with diabetes mellitus due to underlying condition, with bone involvement without evidence of necrosis (Inactive) 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 (Resolved) Dyslipidemia (Chronic) Elevated troponin I level (Resolved) Endocarditis due to Staphylococcus (Resolved) Heme positive stool (Resolved) Hemorrhagic cystitis (Chronic) Hyperkalemia (Resolved) Hypertension (Chronic) Hypomagnesemia (Chronic) Hypothyroidism (Chronic) Impaired mobility and ADLs (Chronic) Inability to get out of bed (Chronic 06/21/13) Lactic acidosis (Resolved) MRSA bacteremia (Resolved) Obesity (Chronic) a. Obesity though he has had significant weight loss since last seen. Osteoarthritis of both knees (Chronic) Severe. a. [id number] bilateral knees. 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 2 diabetes mellitus (Resolved) Palliative care encounter (Chronic) DObbertin Pedal edema (Chronic) Poor self care (Chronic 06/21/13) Poorly controlled type 2 diabetes mellitus with circulatory disorder (Chronic) Presence of IVC filter (Acute) Pulmonary hypertension (Chronic) Rheumatoid arthritis (Chronic) Sepsis (Resolved) Septic arthritis of elbow, right (Inactive) Toxic metabolic encephalopathy (Resolved) Toxic metabolic encephalopathy (Resolved) Ulcerative colitis (Chronic) UTI (urinary tract infection) (Resolved) UTI (urinary tract infection) due to Enterococcus (Resolved) Surgical History Arthroplasty of knee (Resolved 03/18/12) irrigation and lavage right Fracture, Open Treatment (Resolved) 06/06/17-[facility] [place] S/P ORIF RIGHT DISTAL HUMERUS FRACTURE History of insertion of T-tube into biliary tract (Chronic) S/P colectomy (Chronic) Current Functional Limitations: Decreased functional activity tolerance, decreased (I) in ADLs, decreased (B) UE ROM, increased pain in (R) UE decreasing gross and fine motor coordination during ADLs, difficulty breathing, increased fatigue. Social History/Home Situation: Pt resides at [facility]. Pt is well known to OT. He had surgery on his (R) UE to remove a metal plate in his (R) elbow last year, and is still recovering with AROM for his (R) although this seems to be improving. He notes that he is receiving PT/OT since last admission at the [facility] and notes that he requires (A) with bathing, dressing due to his weakness and decreased ROM. Pt states that bathing is performed by sponge bathing. Equipment owned/DME: [facility] which he uses for ambulation, he is a resident of SNF so all other DME are met through the facility. SUBJECTIVE: Pt was sitting on side of bed when OT arrived. He is tired and taking deep breathes. He notes that he is feeling better but still not at his baseline. He reports that he will most likely be at [facility] till later next week. OBJECTIVE: General Observation: IV (L) UE, telemetry, Pt is weak appearance with limited eye contact and agreeable to OT consult. Mental Status: A&Ox3 Pain: no c/o pain ROM: RUE Shoulder flexion ~65*, elbow flexion to 80*, decreased hand/digit ROM able to reach across body to opposite shoulder L UE Shoulder flexion ~70*, elbow flexion WFL with hard end feel for PROM able to reach across body to opposite shoulder STRENGTH: RUE shoulder flexion 2+/5, bicep 2/5, tricep 2/5, senior lead java developer is weak and symmetrical LUE modified testing shoulder/elbow pt is 2/5 throughout senior lead java developer is weak and symmetrical BALANCE: Static sitting Normal Dynamic Sitting Normal Static Standing Fair-Good Dynamic Standing Fair-Good as pts (L) LE hurts due to wound. Dressing- Pt requires max (A) for don and doffing (B) socks. He is not receptive to changing his gown at this time and reports that he is too weak. Bathing- Pt denies bathing at this time but was willing to perform AROM required for bathing routine. From examination pt is able/has available ROM to wash his face, wash (B) UE With mod (A) as he is weak, to was sides of stomach. In seated position he can reach to (B) knees and able to wash from hip to knee with mod (A) due to lack of strength. Eating: OT does recommend that pt use modified eating utensils including utensils with red foam. Pt was able to grasp utensil in (L) hand with thumb, index and MF. Pt does require max (A) for fine motor activities of digits. This is patients baseline level of function. Pt was (I) with food to mouth but this was very fatiguing to pt. SPECIAL TESTS: Daily Activity Limitations Standardized Measure [facility] AM PAC ?6 clicks? Daily Activity Inpatient Short Form: Raw Score 16, CMS score 53.32% INFORMED CONSENT/EDUCATION: Pt instructed in purpose of OT Consult and plan of care. ASSESSMENT: Patient is a 59-year-old male referred to occupational therapy services for Sepsis, HCAP, UTI, A-Fib, JESUS, CKD, respiratory failure with hypoxia, toxic metabolic encephalopathy, DM, pulmonary HTN. Patient presents with clinical signs and symptoms consistent with this dx and deconditioning, as demonstrated by the following impairment level findings: Decreased (B) UE ROM, Decreased (B) UE strengthening, decreased functional activity tolerance, decreased (I) in ADLs, Limited gross and fine motor control of (L) UE, pain in (B) LE, decreased functional mobility required for performance of ADLs, Wound on (L) LE. Impairments are contributing to the following functional limitations: decreased functional mobility, decreased gross and fine motor control of (B) UE, decreased functional activity tolerance. OT recommends that pt return to [facility] when medically cleared per MD. Pt is weak and fatigued. He is not willing to perform ADLs fully at this time but was willing to participate with AROM/PROM assessments. He was repeating the same thing over and over again but notes that he is tired and just needs rest. He struggled to get from sit to supine and was unable to do this. Pt was able to eventually get into the bed but notes that this was hard. His bed positioning is not ideal and requires max (A) for re-adjustment. AMPAC score 16 Patient is assessed as a Moderate 97054 complexity based on the following: History: See Above Examination: See Above Presentation: Evolving Decision Making: AMPA score 16 GOALS Dressing- Pt will require min (A) [facility] gown Bathing- Pt will be able to demonstrate (I) in (B) UE bathing routines including but not limited to shoulders, forearms, hand and wrists with mod (A). Grooming- In seated position pt will be able to brush his hair (I) with good technique. PLAN OF CARE/TREATMENT PLAN: 1x/day, 5 days/ week x 1week Initiate Occupational Therapy Services for bathing, dressing, grooming, toileting, eating, transfer training. DISCHARGE RECOMMENDATIONS Return to [facility] when medically cleared per MD. Eating Routine- OT recommends built up handles for utensils with red foam as pt has decreased gross and fine motor control of (B) UE and digits. TREATMENT TIME/MINUTES/CODES 70352, 25 minutes (09:15) Suzanne Javier OTR/L [facility]
[2019-06-11] MEDS: Magnesium Chloride 64 MG TABCR PO ×2 (09:59→17:43)
[2019-06-11] MEDS: Ferrous Sulfate 325 MG TAB PO ×2 (09:59→22:24)
--- NOTE | 2019-06-11 10:42 | W.PM.PROGNOT ---
Date of Service Date of service: 06/11/19 Time of Service: 10:42 Assessment and Plan Assessment and plan (1) Acute on chronic respiratory failure with hypoxia and hypercapnia: Status: Resolved Assessment and plan: In setting of adrenal crisis and noncompliance with BiPAP initially, but today's episode is primarily due to patient's noncompliance. Encourage BiPAP use as much as possible during sleep/naps. The patient agrees to wear it right now. He met with palliative care and wants to remain full code, but he is not helping himself when he does not wear the BiPAP. At this point, tracheostomy has to be considered, if the patient is going to continue to refuse BiPAP more than he agrees to it. Ethics consult would be appropriate. Keep in ICU. (2) Toxic metabolic encephalopathy: Status: Resolved Assessment and plan: Due to CO2 narcosis and adrenal insufficiency, with recurrence this morning when noncompliant with BiPAP, as this morning. Read discussion above. Keep stress steroid dose the same today. (3) Sepsis: Status: Acute Assessment and plan: Due to HCAP/E. Coli UTI, POA. Blood cultures: NGTD. E. Coli is resistant to Zosyn - continue ceftriaxone day 2. Continue vancomycin for PNA as has a h/o MRSA PNA. Keep steroid dose the same Will keep in ICU. (4) HCAP (healthcare-associated pneumonia): Status: Acute Assessment and plan: As above (5) UTI (urinary tract infection): Status: Acute Assessment and plan: Due to E. Coli, Present on admission. Continue ceftriaxone Day 2. Previously on zosyn, but resistant. (vanco is being predominantly used for PNA). Ruiz changed 06/08/2019. (6) Atrial fibrillation with rapid ventricular response: Status: Chronic Assessment and plan: Now back to NSR. Continue eliquis for anticoagulation (7) Acute kidney injury superimposed on chronic kidney disease: Status: Acute Assessment and plan: Improved with diuresis. Echo does show pulmonary hypertension and slightly reduced EF, explaining why that would be. Continue lasix gtt. Cr continues to get better with diuresis. Trend BMP. Continue to treat UTI. (8) Diabetes mellitus: Status: Chronic Assessment and plan: with steroid induced hyperglycemia. 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 Continue diuresis, encourage wearing of BiPAP. (10) DVT prophylaxis: Status: Acute Assessment and plan: On therapeutic eliquis (11) Discharge planning issues: Status: Acute Assessment and plan: Full code. Total Critical Care Time 45 minutes. Subjective Subjective Interval history since last seen: Mr Corley refused to wear the BiPAP. This morning he is very somnolent, difficult to arouse with loud verbal stimuli, and when awake, not at his mental baseline. He is having abdominal breathing. He nods when I ask him if he will wear the BiPAP now. He does not wake up enough to answer my other questions. Exam Narrative Exam Narrative: General: Obese male with a Cushinoid appearance, lethargic, having abdominal breathing, difficult to arouse HEENT: EOMI, MMM Heart: RRR, + NUVIA Lungs: Diminished breath sounds B Abdomen: soft, nontender, nondistended, + ostomy Extremities: +2 BLE edema (slightly better today), chronic venous stasis dermatitis Objective Objective Clinical Data: Abnormal lab results 06/10/19 06/11/19 06/11/19 Range/Units 11:55 06:30 06:30 RBC 4.31 L (4.50-6.00) m/cumm Hgb 9.4 L (13.5-17.5) g/dL Hct 34.4 L (40.0-50.0) % MCV 79.8 L (80-95) fL MCH 21.8 L (27.0-33.0) pg MCHC 27.3 L (32.0-36.0) g/dL RDW 17.0 H (11.8-14.1) % Absolute Lymphocytes 0.14 L (1.2-3.4) k/cumm Carbon Dioxide 33.0 H (21.0-32.0) mmol/L BUN 92 H* (7-18) mg/dL Creatinine 2.86 H (0.70-1.30) mg/dL Glucose 330 H (74-106) mg/dL Vancomycin Trough 21.1 H* (10.0-20.0) ug/mL Vital Signs Temperature 36.7 C 06/11/19 09:26 Temperature Source Temporal Artery Scan 06/11/19 09:26 Pulse 63 06/11/19 09:26 Pulse 61 06/11/19 04:00 Respiratory Rate 18 06/11/19 09:26 Respiratory Effort 06/11/19 09:26 Respiratory Depth Normal 06/11/19 09:26 Respiratory Pattern Normal 06/11/19 09:26 Blood Pressure 164/88 H 06/11/19 09:26 Blood Pressure Mean 113 06/11/19 09:26 Blood Pressure Position Supine 06/11/19 00:52 Pulse Oximetry 96 06/11/19 09:26 Oxygen Delivery Method Nasal Cannula 06/11/19 09:26 Oxygen Flow Rate 2 06/11/19 10:12 Fraction of Inspired Oxygen (FIO2) 1 06/10/19 12:30 Pain Level 0 06/11/19 09:26 Comment 06/07/19 19:59 Intake & Output 06/10/19 06/10/19 06/11/19 11:59 23:59 11:59 Intake Total 684.458 / 939.666 255.208 / 613.692 7744 / 1020 Output Total 1750 / 3800 2050 / 3800 650 / 650 Balance -1065.542 / -2860.334 -1794.792 / -2860.334 370 / 370 Weight 100.7 kg 102.5 kg Intake: IV 204.458 / 219.666 15.208 / 219.666 300 / 300 Oral 480 / 720 240 / 720 720 / 720 Output: Urine 1500 / 3550 2050 / 3550 650 / 650 Stool 250 / 250 Other: Urine Color Yellow Light Cat Light Cat Urine Appearance Clear Clear Clear Comment has indwelling ruiz catheter patent and draining cyu light colored yellow urine in ruiz ruiz catheter Stool Occult Blood Negative Negative Stool Size Copious Copious Stool Characteristics Soft Soft Liquid Laboratory Results WBC 4.97 k/cumm (4.4-10.8) 06/11/19 06:30 RBC 4.31 m/cumm (4.50-6.00) L 06/11/19 06:30 Hgb 9.4 g/dL (13.5-17.5) L 06/11/19 06:30 Hct 34.4 % (40.0-50.0) L 06/11/19 06:30 MCV 79.8 fL (80-95) L 06/11/19 06:30 MCH 21.8 pg (27.0-33.0) L 06/11/19 06:30 MCHC 27.3 g/dL (32.0-36.0) L 06/11/19 06:30 RDW 17.0 % (11.8-14.1) H 06/11/19 06:30 Plt Count 259 x1000/uL (130-400) 06/11/19 06:30 MPV 9.6 fL (8.0-11.0) 06/11/19 06:30 Immature Gran % 0.0 % 06/11/19 06:30 Neutrophils % 95.0 06/11/19 06:30 Lymphocytes % 2.8 06/11/19 06:30 Monocytes % 2.2 06/11/19 06:30 Eosinophils % 0.0 06/11/19 06:30 Basophils % 0.0 06/11/19 06:30 Absolute Neutrophils 4.72 k/cumm (1.2-6.7) 06/11/19 06:30 Absolute Lymphocytes 0.14 k/cumm (1.2-3.4) L 06/11/19 06:30 Absolute Monocytes 0.11 k/cumm (0.11-0.7) 06/11/19 06:30 Absolute Eosinophils 0.00 k/cumm (0.0-0.7) 06/11/19 06:30 Absolute Basophils 0.00 k/cumm (0.0-0.2) 06/11/19 06:30 Differential Comment Rbc morph reviewed 06/09/19 06:15 RBC Morphology See below 06/09/19 06:15 Polychromasia Present 06/07/19 15:50 Hypochromasia 2+ 06/09/19 06:15 Poikilocytosis 1+ 06/09/19 06:15 Basophilic Stippling 1+ 06/07/19 15:50 Anisocytosis 3+ 06/09/19 06:15 Microcytosis 2+ 06/09/19 06:15 Tear Drop Cells 2+ 06/07/19 15:50 Ovalocytes 3+ 06/09/19 06:15 Stomatocytes 3+ 06/07/19 15:50 PT 10.7 sec (9.3-11.0) 06/07/19 15:50 INR 1.1 (0.9-1.1) 06/07/19 15:50 APTT 23.4 sec (21.0-31.4) 06/07/19 15:50 ABG Sample Site Right radial 06/10/19 08:10 ABG pH 7.33 (7.35-7.45) L 06/10/19 08:10 ABG pCO2 65 mmHg (34-47) H* 06/10/19 08:10 ABG pO2 76 mmHg (83-108) L 06/10/19 08:10 ABG HCO3 35 mmol/L (22-28) H 06/10/19 08:10 ABG Total CO2 33 mmol/L (22-29) H 06/10/19 08:10 ABG O2 Saturation 95 % (94-98) 06/10/19 08:10 ABG Base Excess 8.6 mmol/L (-3-3) H 06/10/19 08:10 VBG pH 7.41 (7.35-7.45) 06/08/19 08:15 VBG pCO2 49 mm/Hg (34-47) H 06/08/19 08:15 VBG pO2 86 mm/Hg (28-44) H 06/08/19 08:15 VBG HCO3 31 mmol/L (22-28) H 06/08/19 08:15 VBG Total CO2 29 mmol/L (22-29) 06/08/19 08:15 VBG O2 Saturation 98 % (70-80) H 06/08/19 08:15 VBG Base Excess 6.2 mmol/L (-3-3) H 06/08/19 08:15 Oxygen Liter Flow 1 L 06/10/19 08:10 FiO2 Remstar bipap 11/5 % 06/10/19 08:10 Sodium 139 mmol/L (136-145) 06/11/19 06:30 Potassium 4.5 mmol/L (3.5-5.1) 06/11/19 06:30 Chloride 102 mmol/L (98-107) 06/11/19 06:30 Carbon Dioxide 33.0 mmol/L (21.0-32.0) H 06/11/19 06:30 Anion Gap 4.0 mmol/L (3-11) 06/11/19 06:30 BUN 92 mg/dL (7-18) H* 06/11/19 06:30 Creatinine 2.86 mg/dL (0.70-1.30) H 06/11/19 06:30 Estimated GFR/1.73 m2 22.67 (mL/min/1.73m2) 06/11/19 06:30 Glucose 330 mg/dL (74-106) H 06/11/19 06:30 Lactate 1.8 mmol/L (0.6-1.4) H 06/08/19 08:15 Calcium 8.7 mg/dL (8.5-10.1) 06/11/19 06:30 Magnesium 1.9 mg/dL (1.8-2.4) 06/11/19 06:30 Ferritin 106 ng/mL (26-388) 06/07/19 15:50 Total Bilirubin 0.8 mg/dL (0.2-1.0) 06/07/19 15:50 AST 27 U/L (15-37) 06/07/19 15:50 ALT 18 U/L (16-63) 06/07/19 15:50 Alkaline Phosphatase 94 U/L (46-116) 06/07/19 15:50 Lactate Dehydrogenase 270 U/L (85-227) H 06/07/19 15:50 Troponin I < 0.05 ng/Ml (<0.06) 06/07/19 15:50 C-Reactive Protein 3.52 mg/dL (0.0-0.3) H 06/10/19 06:25 NT-Pro-B Natriuret Pep 3144 pg/mL (<300) H 06/07/19 15:50 Total Protein 7.1 g/dL (6.4-8.2) 06/07/19 15:50 Albumin 2.9 g/dL (3.4-5.0) L 06/07/19 15:50 Procalcitonin 1.0 ng/mL 06/10/19 06:25 Urine Color Yellow (Yellow) 06/07/19 16:15 Urine Clarity Cloudy (Clear) 06/07/19 16:15 Urine pH 6.0 (5-8) 06/07/19 16:15 Ur Specific [place] 1.015 (1.005-1.025) 06/07/19 16:15 Urine Protein 100 mg/dL (Negative) H 06/07/19 16:15 Urine Ketones Negative mg/dL (Negative) 06/07/19 16:15 Urine Blood Moderate (Negative) H 06/07/19 16:15 Urine Nitrite Positive (Negative) H 06/07/19 16:15 Urine Bilirubin Negative (Negative) 06/07/19 16:15 Urine Urobilinogen 0.2 EU/dL (Up TO 0.2) 06/07/19 16:15 Ur Leukocyte Esterase Large (Negative) H 06/07/19 16:15 Urine RBC HPF (0-2) 06/07/19 16:15 Urine WBC >50 HPF (0-5) H 06/07/19 16:15 Ur Epithelial Cells Negative HPF (Negative) 06/07/19 16:15 Urine Crystals Not Applicable 06/07/19 16:15 Urine Bacteria Packed HPF (Negative) 06/07/19 16:15 Urine Casts 10-20 coarsegranular LPF (Negative) 06/07/19 16:15 Urine Mucus Not Applicable 06/07/19 16:15 Urine Other Many renal (Negative) 06/07/19 16:15 Ur Culture Indicated? Yes 06/07/19 16:15 Urine Glucose Negative mg/dL (Negative) 06/07/19 16:15 Vancomycin Trough 21.1 ug/mL (10.0-20.0) H* 06/10/19 11:55 Coronavirus (PCR) Negative (Negative) 06/07/19 17:15
--- NOTE | 2019-06-11 10:51 | PDOC.CMPRO ---
- If Service Date Differs Date of service: 06/11/19 Time of Service: 10:51 Care Management Progress Note S/O: Brendan continues to be cared for in the ICU. Per report, he has been having difficulty keeping his bipap on, which is stated d/t non compliance. Per MD, he will have negative consequences if he does not use his bipap including the need for a tracheotomy, feeding tube, increased hospitalizations, and possibly . He stated that he doesn't mind hospitalizations because he likes it here. Dr. Kim was consulted, who recommended out pt CBT, which can be accommodated at the [facility]. Brendan was not available to meet with CM today after multiple attempts. No change to his plan, which is to return to the [facility] once he is medically cleared. CM will continue to follow. A: Brendan is a 59 year old male admitted to [facility] on 06/07/19 with Sepsis from UTI, Acute Adrenal Crisis and encephalopathy. P: Brendan will return to the [facility] when medically cleared, which is where he resides. He will be transported via RCT w/c van, coordinated by CM. CM will communicate with the [facility] regarding his disposition. CM will continue to follow.
[2019-06-11] MEDS: Insulin Aspart 300 UNITS/3 ML PEN SC ×3 (12:16→22:09)
--- NOTE | 2019-06-11 13:22 | PT.INTREAT ---
Date of service: 06/11/19 Time of Service: 13:22 PT Notes Visit Reasons: SEPSIS FROM UTI,?PNA,ACUTE ADRENAL CRISIS,ENCEPHAL Inpatient Physical Therapy Treatment Note [facility] Date: 06/11/2019 PRECAUTIONS: Fall. Contact precautions. Activity as tolerated. SUBJECTIVE: Patient complained of being weak and unable to put full weight on B UE/LE. He became highly anxious about falling and verbalized that there should be three people helping him instead of just two. OBJECTIVE: Telemetry monitoring in place. Downing catheter in place. Colostomy bag replaced by nurse Bc immediately prior to PT session. PAIN:Pain on B knees contributing to decreased static standing tolerance. BED MOBILITY/TRANSFERS Supine-sit: minimal assist Sit-stand: moderate assist of 2 with maximal verbal cueing for correct technique Stand-sit: moderate assist of 2 with maximal verbal cueing for correct technique Bed-Chair: moderate assist of 2 with maximal verbal cueing for correct technique GAIT Assistive Device: Front wheeled walker Weight bearing: Full weight bearing Assist: Minimal assist Distance: 6 steps Deviation: Unable and hghly anxious about straightening both knees and unable to push down on walker fully. Decreased step height and length. Decreased tanya. Bilateral knee pain reported with weight bearing. Decreased dorsiflexion on bilateral ankles. ASSESSMENT: Brendan's activity tolerance is significantly low today. He is anxious about falling and apperead generally weak to tolerate even static standing compared to yesterday afternoon. Patient continues to require extensive encouragement to participate. PLAN: Continue with PT POC as initially established. Will focus on increasing independence with transfer task performance and short ambulation of 15 feet with minimal assist using front wheeled walker. TREATMENT CODE/TIME: 75139 x 29 minutes beginning at 13:22 PM.
[2019-06-11] MEDS: cefTRIAXone 1 GM/50 ML BAG IVPB (14:18)
[2019-06-11 16:12] LABS: BE (Venous) 6.2 mmol/L (-3-3); HCO3 (Venous) 33 mmol/L (22-28); pCO2 (Venous) 69 mm/Hg (34-47); pH (Venous) 7.29 (7.35-7.45); pO2 (Venous) 124 mm/Hg (28-44)
[2019-06-11 16:16] LABS: O2 Sat (Venous) > 99 % (70-80)
--- NOTE | 2019-06-11 20:03 | W.PALPGNOTE ---
Date of service: 06/10/19 Time of Service: 15:03 Assessment and Plan Assessment and plan (1) Advanced care planning/counseling discussion: Status: Acute Assessment and plan: Brendan feels that he will live at least 5 more years. He has little progsnostic awareness concerning his multiple co morbidities and expected lifespan. He continues to voice the expectation that he will move from the [facility] to a home care situation. He feels strongly that he will improve. He also strongly voices that he wants control over choices such as what to eat, when he uses his bipap, when staff should come in to care for him. It would be helpful if he had more rigorous physical therapy to help him reach his expectations. Regarding his care, ie bipap - he needs to use this often and consistently. He will not reach his goals of improving his autonomy if he continues to be obtunded from CO2 retention. Consistent reminder of his goals is important. He also voiced his need for consistent instruction such as amount of fluid he was allowed. He stated that it was difficult to comprehend written instruction. I do think a visit with a bleacher kraft pulp would be helpful AND then written instructions to the staff so he gets consistent information. I will continue to follow. Thank you for this consult. Subjective Subjective Interval history since last seen: Continues to improve. Brendan was upset because someone came in to talk to him around noon. He likes to eat lunch at that time and wasn't wanting to engage in conversation. He also feels strongly he should be able to decide on when he uses his bipap. He doesn't like being told he needs to use it. He wants to live and wants everything done to continue his life. He also feels strongly that although he continues to make poor choices regarding diet, PT, etc, he will get better and have a high quality life. Exam Narrative Exam Narrative: Lying in bed. Emotional at times Const General: disheveled Nutritional Appearance: average body habitus Orientation: oriented x3 Eyes General: appearance normal, both eyes and all related structures Resp Effort & Inspection: normal respiratory effort and able to speak in complete sentences Auscultation: diminished lung sounds Cardio Rate: regular rate Rhythm: regular rhythm GI Palpation: soft and no hepatosplenomegaly General: other (catheter in place) Skin General skin exam: pallor Psych Speech and Movement: speech clear and restless Affect: irritable affect Attitude: guarded and establishes eye contact Thought Process: normal Thought Content: normal Objective Objective Clinical Data: Abnormal lab results 06/11/19 06/11/19 06/11/19 Range/Units 06:30 06:30 16:00 RBC 4.31 L (4.50-6.00) m/cumm Hgb 9.4 L (13.5-17.5) g/dL Hct 34.4 L (40.0-50.0) % MCV 79.8 L (80-95) fL MCH 21.8 L (27.0-33.0) pg MCHC 27.3 L (32.0-36.0) g/dL RDW 17.0 H (11.8-14.1) % Absolute Lymphocytes 0.14 L (1.2-3.4) k/cumm VBG pH 7.29 L (7.35-7.45) VBG pCO2 69 H* (34-47) mm/Hg VBG pO2 124 H (28-44) mm/Hg VBG HCO3 33 H (22-28) mmol/L VBG O2 Saturation > 99 H (70-80) % VBG Base Excess 6.2 H (-3-3) mmol/L Carbon Dioxide 33.0 H (21.0-32.0) mmol/L BUN 92 H* (7-18) mg/dL Creatinine 2.86 H (0.70-1.30) mg/dL Glucose 330 H (74-106) mg/dL Vital Signs Temperature 97.2 F L 06/11/19 14:07 Temperature Source Temporal Artery Scan 06/11/19 14:07 Pulse 55 L 06/11/19 14:07 Pulse 61 06/11/19 04:00 Respiratory Rate 19 06/11/19 17:20 Respiratory Effort 06/11/19 14:07 Respiratory Depth Normal 06/11/19 14:07 Respiratory Pattern Normal 06/11/19 14:07 Blood Pressure 141/84 H 06/11/19 14:07 Blood Pressure Mean 103 06/11/19 14:07 Blood Pressure Position Sitting 06/11/19 14:07 Pulse Oximetry 96 06/11/19 17:20 Oxygen Delivery Method Nasal Cannula 06/11/19 14:07 Oxygen Flow Rate 2 06/11/19 14:07 Fraction of Inspired Oxygen (FIO2) 30 06/11/19 17:20 Pain Level 0 06/11/19 14:07 Comment 06/07/19 19:59 Intake & Output 06/10/19 06/11/19 06/11/19 23:59 11:59 23:59 Intake Total 255.208 / 273.639 4073 / 1935.375 915.375 / 1935.375 Output Total 2050 / 3800 650 / 2250 1600 / 2250 Balance -1794.792 / -2860.334 370 / -314.625 -684.625 / -314.625 Weight 225 lb 15.581 oz Intake: IV 15.208 / 219.666 300 / 375.375 75.375 / 375.375 Oral 240 / 720 720 / 1560 840 / 1560 Output: Urine 2049 / 3550 650 / 2250 1600 / 2250 Other: Urine Color Light Cat Light Cat Yellow Urine Appearance Clear Clear Cloudy Comment light colored yellow urine in ruiz ruiz catheter Ruiz catheter. Stool Occult Blood Negative Stool Size Copious Stool Characteristics Soft Liquid Laboratory Results WBC 4.97 k/cumm (4.4-10.8) 06/11/19 06:30 RBC 4.31 m/cumm (4.50-6.00) L 06/11/19 06:30 Hgb 9.4 g/dL (13.5-17.5) L 06/11/19 06:30 Hct 34.4 % (40.0-50.0) L 06/11/19 06:30 MCV 79.8 fL (80-95) L 06/11/19 06:30 MCH 21.8 pg (27.0-33.0) L 06/11/19 06:30 MCHC 27.3 g/dL (32.0-36.0) L 06/11/19 06:30 RDW 17.0 % (11.8-14.1) H 06/11/19 06:30 Plt Count 259 x1000/uL (130-400) 06/11/19 06:30 MPV 9.6 fL (8.0-11.0) 06/11/19 06:30 Immature Gran % 0.0 % 06/11/19 06:30 Neutrophils % 95.0 06/11/19 06:30 Lymphocytes % 2.8 04/17/20 06:30 Monocytes % 2.2 06/11/19 06:30 Eosinophils % 0.0 06/11/19 06:30 Basophils % 0.0 06/11/19 06:30 Absolute Neutrophils 4.72 k/cumm (1.2-6.7) 06/11/19 06:30 Absolute Lymphocytes 0.14 k/cumm (1.2-3.4) L 06/11/19 06:30 Absolute Monocytes 0.11 k/cumm (0.11-0.7) 06/11/19 06:30 Absolute Eosinophils 0.00 k/cumm (0.0-0.7) 06/11/19 06:30 Absolute Basophils 0.00 k/cumm (0.0-0.2) 06/11/19 06:30 Differential Comment Rbc morph reviewed 06/09/19 06:15 RBC Morphology See below 06/09/19 06:15 Polychromasia Present 06/07/19 15:50 Hypochromasia 2+ 06/09/19 06:15 Poikilocytosis 1+ 06/09/19 06:15 Basophilic Stippling 1+ 06/07/19 15:50 Anisocytosis 3+ 06/09/19 06:15 Microcytosis 2+ 06/09/19 06:15 Tear Drop Cells 2+ 06/07/19 15:50 Ovalocytes 3+ 06/09/19 06:15 Stomatocytes 3+ 06/07/19 15:50 PT 10.7 sec (9.3-11.0) 06/07/19 15:50 INR 1.1 (0.9-1.1) 06/07/19 15:50 APTT 23.4 sec (21.0-31.4) 06/07/19 15:50 ABG Sample Site Right radial 06/10/19 08:10 ABG pH 7.33 (7.35-7.45) L 06/10/19 08:10 ABG pCO2 65 mmHg (34-47) H* 06/10/19 08:10 ABG pO2 76 mmHg (83-108) L 06/10/19 08:10 ABG HCO3 35 mmol/L (22-28) H 06/10/19 08:10 ABG Total CO2 33 mmol/L (22-29) H 06/10/19 08:10 ABG O2 Saturation 95 % (94-98) 06/10/19 08:10 ABG Base Excess 8.6 mmol/L (-3-3) H 06/10/19 08:10 VBG pH 7.29 (7.35-7.45) L 06/11/19 16:00 VBG pCO2 69 mm/Hg (34-47) H* 06/11/19 16:00 VBG pO2 124 mm/Hg (28-44) H 06/11/19 16:00 VBG HCO3 33 mmol/L (22-28) H 06/11/19 16:00 VBG Total CO2 mmol/L (22-29) 06/11/19 16:00 VBG O2 Saturation > 99 % (70-80) H 06/11/19 16:00 VBG Base Excess 6.2 mmol/L (-3-3) H 06/11/19 16:00 Oxygen Liter Flow 1 L 06/10/19 08:10 FiO2 Remstar bipap 11/5 % 06/10/19 08:10 Sodium 139 mmol/L (136-145) 06/11/19 06:30 Potassium 4.5 mmol/L (3.5-5.1) 06/11/19 06:30 Chloride 102 mmol/L (98-107) 06/11/19 06:30 Carbon Dioxide 33.0 mmol/L (21.0-32.0) H 06/11/19 06:30 Anion Gap 4.0 mmol/L (3-11) 06/11/19 06:30 BUN 92 mg/dL (7-18) H* 06/11/19 06:30 Creatinine 2.86 mg/dL (0.70-1.30) H 06/11/19 06:30 Estimated GFR/1.73 m2 22.67 (mL/min/1.73m2) 06/11/19 06:30 Glucose 330 mg/dL (74-106) H 06/11/19 06:30 Lactate 1.8 mmol/L (0.6-1.4) H 06/08/19 08:15 Calcium 8.7 mg/dL (8.5-10.1) 06/11/19 06:30 Magnesium 1.9 mg/dL (1.8-2.4) 06/11/19 06:30 Ferritin 106 ng/mL (26-388) 06/07/19 15:50 Total Bilirubin 0.8 mg/dL (0.2-1.0) 06/07/19 15:50 AST 27 U/L (15-37) 06/07/19 15:50 ALT 18 U/L (16-63) 06/07/19 15:50 Alkaline Phosphatase 94 U/L (46-116) 06/07/19 15:50 Lactate Dehydrogenase 270 U/L (85-227) H 06/07/19 15:50 Troponin I < 0.05 ng/Ml (<0.06) 06/07/19 15:50 C-Reactive Protein 3.52 mg/dL (0.0-0.3) H 06/10/19 06:25 NT-Pro-B Natriuret Pep 3144 pg/mL (<300) H 06/07/19 15:50 Total Protein 7.1 g/dL (6.4-8.2) 06/07/19 15:50 Albumin 2.9 g/dL (3.4-5.0) L 06/07/19 15:50 Procalcitonin 1.0 ng/mL 06/10/19 06:25 Urine Color Yellow (Yellow) 06/07/19 16:15 Urine Clarity Cloudy (Clear) 06/07/19 16:15 Urine pH 6.0 (5-8) 06/07/19 16:15 Ur Specific [place] 1.015 (1.005-1.025) 06/07/19 16:15 Urine Protein 100 mg/dL (Negative) H 06/07/19 16:15 Urine Ketones Negative mg/dL (Negative) 06/07/19 16:15 Urine Blood Moderate (Negative) H 06/07/19 16:15 Urine Nitrite Positive (Negative) H 06/07/19 16:15 Urine Bilirubin Negative (Negative) 06/07/19 16:15 Urine Urobilinogen 0.2 EU/dL (Up TO 0.2) 06/07/19 16:15 Ur Leukocyte Esterase Large (Negative) H 06/07/19 16:15 Urine RBC HPF (0-2) 06/07/19 16:15 Urine WBC >50 HPF (0-5) H 06/07/19 16:15 Ur Epithelial Cells Negative HPF (Negative) 06/07/19 16:15 Urine Crystals Not Applicable 06/07/19 16:15 Urine Bacteria Packed HPF (Negative) 06/07/19 16:15 Urine Casts 10-20 coarsegranular LPF (Negative) 06/07/19 16:15 Urine Mucus Not Applicable 06/07/19 16:15 Urine Other Many renal (Negative) 06/07/19 16:15 Ur Culture Indicated? Yes 06/07/19 16:15 Urine Glucose Negative mg/dL (Negative) 06/07/19 16:15 Vancomycin Trough 21.1 ug/mL (10.0-20.0) H* 06/10/19 11:55 Coronavirus (PCR) Negative (Negative) 06/07/19 17:15
[2019-06-11] MEDS: Melatonin 3 MG TAB 9 MG PO (22:23)
[2019-06-11] MEDS: risperiDONE 1 MG TAB 2 MG PO (22:23)
[2019-06-12] VITALS (174 sets, daily range): BP systolic 135–163; BP diastolic 64–73; PULSE 42–72; RESP 12–33; TEMP 36.4–36.8; O2SAT 90–100
[2019-06-12] MEDS: methylPREDNISolone SUCC 40 MG VIAL IVP ×2 (00:13→12:24)
[2019-06-12] MEDS: VANCOMYCIN 1,000 MG in Normal Saline 250 ML 166.667 MG IVPB (00:13)
[2019-06-12] MEDS: Levothyroxine 25 MCG TAB 12.5 MCG PO (06:14)
[2019-06-12 06:55] LABS: Abs Immature Grans 0.01 k/cumm (0.0-0.09); Absolute Basophil Count 0.01 k/cumm (0.0-0.2); Absolute Monocyte Count 0.12 k/cumm (0.11-0.7); Absolute Neutrophil Count 2.99 k/cumm (1.2-6.7); Basophils % 0.3; HCT 34.6 % (40.0-50.0); HGB 9.8 g/dL (13.5-17.5); Immature Grans % 0.3 %; Lymphocytes % 8.7; Mean Corp. HGB Concentration 28.3 g/dL (32.0-36.0); Mean Corpuscular Hemoglobin 22.2 pg (27.0-33.0); Mean Corpuscular Volume 78.5 fL (80-95); Mean Platelet Volume 10.4 fL (8.0-11.0); Monocytes % 3.5; Neutrophils % 87.2; Platelet Count 259 x1000/uL (130-400); RBC 4.41 m/cumm (4.50-6.00); RBC Distribution Width 16.8 % (11.8-14.1); White Blood Cell Count 3.43 k/cumm (4.4-10.8)
[2019-06-12 07:07] LABS: Anion Gap 3.5 mmol/L (3-11); C-Reactive Protein 1.22 mg/dL (0.0-0.3); CO2 32.5 mmol/L (21.0-32.0); CREATININE 2.39 mg/dL (0.70-1.30); Chloride 104 mmol/L (98-107); Estimated GFR 27.89 (mL/min/1.73m2); Glucose 242 mg/dL (74-106); Sodium 140 mmol/L (136-145)
[2019-06-12 07:19] LABS: BUN 99 mg/dL (7-18)
--- NOTE | 2019-06-12 08:26 | PDOC.CMPRO ---
- If Service Date Differs Date of service: 06/12/19 Time of Service: 08:26 Care Management Progress Note S/O: Brendan was presented at multidisciplinary rounds, CM completed chart review. RT recommends transition to a Trilogy unit r/t his rising CO2 levels and ABG's. RT is concerned the BIPAP is not effective in treating his chronic respiratory failure. Brendan often does not comply with the BIPAP treatment and the concern as he becomes more confused as his CO2 increases which leads to his increase confusion, resp distress and readmission to the hospital. CM faxed the recommendations to at the [facility] and request a web ex meeting to discuss Brendan's care and how to improve his respiratory status at the [facility]. Dr. Horowitz did meet with Brendan for palliative care and will continue to follow. She should also be a part of the scheduled meeting. A: Brendan is a 59 year old male admitted to [facility] on 06/07/19 with Sepsis from UTI, Acute Adrenal Crisis and encephalopathy. P: Brendan will return to the [facility] when medically cleared, which is where he resides. He will be transported via [facility] w/c van, coordinated by CM. CM will communicate with the [facility] regarding his disposition. CM will continue to follow.
[2019-06-12] MEDS: Metoprolol 25 MG TAB PO ×2 (08:44→20:21)
[2019-06-12] MEDS: Terazosin 2 MG CAP 4 MG PO ×2 (08:44→20:21)
[2019-06-12] MEDS: Gabapentin 300 MG CAP PO ×3 (08:45→20:22)
[2019-06-12] MEDS: amLODIPine 10 MG TAB PO (08:45)
[2019-06-12] MEDS: Cyanocobalamin 500 MCG TAB 1000 MCG PO (08:45)
[2019-06-12] MEDS: Cetirizine 10 MG TAB PO (08:46)
[2019-06-12] MEDS: cloNIDine 0.1 MG TAB PO ×3 (08:46→20:50)
[2019-06-12] MEDS: predniSONE 10 MG, predniSONE 5 MG 15 MG PO (08:46)
[2019-06-12] MEDS: Apixaban 2.5 MG TAB PO ×2 (08:46→20:22)
[2019-06-12] MEDS: Pantoprazole 40 MG TABCR PO (08:46)
[2019-06-12] MEDS: Ascorbic Acid 500 MG TAB 250 MG PO ×2 (08:48→20:21)
[2019-06-12] MEDS: Insulin Aspart 300 UNITS/3 ML PEN SC ×4 (08:49→21:16)
[2019-06-12] MEDS: Insulin Glargine 300 UNITS/3 ML PEN 40 UNITS SC ×2 (08:50→20:43)
[2019-06-12] MEDS: Insulin Aspart 300 UNITS/3 ML PEN 10 UNITS SC ×3 (08:50→17:11)
[2019-06-12] MEDS: Ferrous Sulfate 325 MG TAB PO ×2 (10:50→21:10)
[2019-06-12] MEDS: Magnesium Chloride 64 MG TABCR PO ×2 (10:50→17:51)
--- NOTE | 2019-06-12 13:03 | PTTR_ITS ---
Date of service: 06/12/19 Time of Service: 13:03 PT Notes Visit Reasons: SEPSIS FROM UTI,?PNA,ACUTE ADRENAL CRISIS,ENCEPHAL Inpatient Physical Therapy Treatment Note [facility] Date: 06/12/2019 PRECAUTIONS: Fall. Contact precautions. Activity as tolerated. SUBJECTIVE: Patient is mildly agitated today and did not want to fully cooperate with PT and nurse. He states that he is weak and there should be at least three people available if he were to stand up and transfer. He is adamant that his legs are not able to hold his body. He continues to be fearful of falling and would prefer not to do anything. OBJECTIVE: Telemetry monitoring in place. Downing catheter in place. Sacral wound dressing replaced by Nurse Vanessa prior to transfer activity today. PAIN:Pain on B knees contributing to decreased static standing tolerance. BED MOBILITY/TRANSFERS Supine-sit: minimal assist Sit-stand: moderate assist of 2 with maximal verbal cueing for correct technique. Patient demands full assist with sit>stand movement stating that he has no strength. Stand-sit: maximum assist of 2 with maximal verbal cueing for correct technique. Patient stops moving midway towards turning around to chair and was demanding to sit down without being able to back up first. Bed-Chair: maximum assist of 2 with maximal verbal cueing for correct technique GAIT Assistive Device: Front wheeled walker Weight bearing: Full weight bearing Assist: Minimal assist Distance: 6 steps Deviation: Unable to and highly anxious about straightening both knees and unable to push down on walker fully. Decreased step height and length. Decreased tanya. Bilateral knee pain reported with weight bearing. Decreased dorsiflexion on bilateral ankles. THERA EX: Brendan grudgingly performed 10 hip flexion and abduction on the R LE when requested to but did not want to do anything else. ASSESSMENT: Brendan remains lacking in motivation and not wanting to cooperate with exercise plan. He voices that he wants to be left alone and refuses to transfer if there are less than three people. He has available UE strength bilaterally and is able to bring B legs and knees up against gravity indicating fair strength on B hips and knees that will allow safe sit<>stand using front-wheeled walker and assist of 2. However, patient is not open to any recommendations at this time and may need to be mechanically lifted for his safety and the safety of staff should he need to be transferred again. PT needed to leave patient after doing two exercises in order not to further aggravate him. Nurse Vanessa was present during most of the session today. PLAN: Continue with PT POC as initially established. Will focus on increasing i ndependence with transfer task performance and short ambulation of 15 feet with minimal assist using front wheeled walker. TREATMENT CODE/TIME: 69054 x 32 minutes beginning at 13:03 PM.
[2019-06-12] MEDS: cefTRIAXone 1 GM/50 ML BAG IVPB (15:01)
--- NOTE | 2019-06-12 15:38 | PGE_ITS ---
Date of Service Date of service: 06/12/19 Time of Service: 15:38 Assessment and Plan Assessment and plan (1) Sepsis: Status: Acute Assessment and plan: Patient admitted for sepsis syndrome, probable urinary source. His blood pressures have stabilized. He is being treated with ceftriaxone for E. coli in his urine. (2) CHF (congestive heart failure): Status: Chronic Assessment and plan: He has been on a Lasix infusion for presumed fluid overload related to congestive heart failure. He appears to be euvolemic. Will DC the Lasix infusion in favor of resuming his outpatient furosemide 80 mg p.o. twice daily. (3) Acute respiratory failure with hypoxia and hypercarbia: Status: Acute Assessment and plan: He was obtunded on arrival and found to be severely hypercapnic and hypoxic. He is BiPAP dependent. Respiratory therapy has determined that the home unit he is using at the [facility] may not be delivering the right amount of pressure support/volume support necessary to keep him from getting hypercapnic. There is also an issue of compliance. The plan is to consult with his respiratory equipment supplier to see if we can get him proper rate, pressure, volume support. (4) Atrial fibrillation with rapid ventricular response: Status: Chronic Assessment and plan: His A. fib has been under good control on present medications. Continue the Eliquis. (5) UTI (urinary tract infection): Status: Acute Assessment and plan: E. coli UTI sensitive to ceftriaxone. He is on day 4 of antibiotics. No fever no elevated white count. Consider D/C tomorrow if stable. (6) Adrenal insufficiency: Status: Chronic Assessment and plan: On chronic prednisone therapy. He requires stress dose steroids when he decompensates. (7) MRSA colonization: Status: Acute Assessment and plan: Chronic MRSA colonization of the nares. Will DC the vancomycin. (8) Discharge planning issues: Status: Acute Assessment and plan: Plan is to return to the [facility] for long-term care. We are trying to get him the right respiratory equipment to prevent re- admissions. He remains a full code. Subjective Subjective Interval history since last seen: Brendan is about back to baseline. His appetite is excellent. He is getting a little more defiant and picky about his care. He was complaining about his blood pressure cuff today. It is very difficult for him to get out of bed. He has a large area of discomfort in the decubital region that looks like an impending sore. He is not ambulatory. Exam Narrative Exam Narrative: On exam he is disheveled appearing man with extremely poor dentition. His breathing is not at all labored on nasal cannula oxygen. He speaks in whole sentences. He had no cough. His lung sounds were generally clear on the right and left. Heart sounds were regular. Abdomen overall soft and nontender. His lower extremities showed no significant edema. His knee joints show significant hypertrophy he has ulnar deviation of the joints in his hands. His rheumatoid arthritis has advanced since I last examined him. By report his decubital area shows a large (20 cm diameter) area of purpura with at risk skin tissue with a central area of 1 cm stage II ulceration. Objective Objective Clinical Data: Abnormal lab results 06/11/19 06/12/19 06/12/19 Range/Units 16:00 06:20 06:20 WBC 3.43 L D (4.4-10.8) k/cumm RBC 4.41 L (4.50-6.00) m/cumm Hgb 9.8 L (13.5-17.5) g/dL Hct 34.6 L (40.0-50.0) % MCV 78.5 L (80-95) fL MCH 22.2 L (27.0-33.0) pg MCHC 28.3 L (32.0-36.0) g/dL RDW 16.8 H (11.8-14.1) % Absolute Lymphocytes 0.30 L (1.2-3.4) k/cumm VBG pH 7.29 L (7.35-7.45) VBG pCO2 69 H* (34-47) mm/Hg VBG pO2 124 H (28-44) mm/Hg VBG HCO3 33 H (22-28) mmol/L VBG O2 Saturation > 99 H (70-80) % VBG Base Excess 6.2 H (-3-3) mmol/L Carbon Dioxide 32.5 H (21.0-32.0) mmol/L BUN 99 H* (7-18) mg/dL Creatinine 2.39 H (0.70-1.30) mg/dL Glucose 242 H D (74-106) mg/dL C-Reactive Protein 1.22 H (0.0-0.3) mg/dL Vital Signs Temperature 36.7 C 06/12/19 08:00 Temperature Source Temporal Artery Scan 06/12/19 08:00 Pulse 53 L 06/12/19 08:01 Pulse 44 L 06/12/19 05:00 Respiratory Rate 26 H 06/12/19 14:23 Respiratory Effort 06/12/19 12:30 Respiratory Depth Normal 06/12/19 12:30 Respiratory Pattern Normal 06/12/19 12:30 Blood Pressure 139/70 06/12/19 08:01 Blood Pressure Mean 90 06/12/19 05:12 Blood Pressure Position Supine 06/12/19 05:12 Pulse Oximetry 97 06/12/19 14:23 Oxygen Delivery Method Nasal Cannula 06/12/19 12:30 Oxygen Flow Rate 1 06/12/19 12:30 Fraction of Inspired Oxygen (FIO2) 30 06/12/19 08:42 Pain Level 0 06/11/19 21:28 Comment 06/07/19 19:59 Intake & Output 06/11/19 06/12/19 06/12/19 23:59 11:59 23:59 Intake Total 965.375 / 3093.415 3352 / 1128 118 / 1128 Output Total 2850 / 3500 875 / 1675 800 / 1675 Balance -1884.625 / -1514.625 135 / -547 -682 / -547 Weight 102.5 kg Intake: IV 125.375 / 425.375 250 / 250 Oral 840 / 1560 760 / 878 118 / 878 Output: Urine 2050 / 2700 600 / 1400 800 / 1400 Stool 800 / 800 275 / 275 Other: Urine Color Light Nelli Light Nelli Yellow Urine Appearance Clear Clear Cloudy Sediment Mucous Threads Comment pt has indwelling ruiz cath patent and draining clear light nelli urine lasix gtt @ 2.5 mg/H Dark yellow Stool Occult Blood Negative Negative Stool Size Copious Stool Characteristics Soft Liquid Laboratory Results WBC 3.43 k/cumm (4.4-10.8) L D 06/12/19 06:20 RBC 4.41 m/cumm (4.50-6.00) L 06/12/19 06:20 Hgb 9.8 g/dL (13.5-17.5) L 06/12/19 06:20 Hct 34.6 % (40.0-50.0) L 06/12/19 06:20 MCV 78.5 fL (80-95) L 06/12/19 06:20 MCH 22.2 pg (27.0-33.0) L 06/12/19 06:20 MCHC 28.3 g/dL (32.0-36.0) L 06/12/19 06:20 RDW 16.8 % (11.8-14.1) H 06/12/19 06:20 Plt Count 259 x1000/uL (130-400) 06/12/19 06:20 MPV 10.4 fL (8.0-11.0) 06/12/19 06:20 Immature Gran % 0.3 % 06/12/19 06:20 Neutrophils % 87.2 06/12/19 06:20 Lymphocytes % 8.7 06/12/19 06:20 Monocytes % 3.5 06/12/19 06:20 Eosinophils % 0.0 06/12/19 06:20 Basophils % 0.3 06/12/19 06:20 Absolute Neutrophils 2.99 k/cumm (1.2-6.7) 06/12/19 06:20 Absolute Lymphocytes 0.30 k/cumm (1.2-3.4) L 06/12/19 06:20 Absolute Monocytes 0.12 k/cumm (0.11-0.7) 06/12/19 06:20 Absolute Eosinophils 0.00 k/cumm (0.0-0.7) 06/12/19 06:20 Absolute Basophils 0.01 k/cumm (0.0-0.2) 06/12/19 06:20 Differential Comment Rbc morph reviewed 06/09/19 06:15 RBC Morphology See below 06/09/19 06:15 Polychromasia Present 06/07/19 15:50 Hypochromasia 2+ 06/09/19 06:15 Poikilocytosis 1+ 06/09/19 06:15 Basophilic Stippling 1+ 06/07/19 15:50 Anisocytosis 3+ 06/09/19 06:15 Microcytosis 2+ 06/09/19 06:15 Tear Drop Cells 2+ 06/07/19 15:50 Ovalocytes 3+ 06/09/19 06:15 Stomatocytes 3+ 06/07/19 15:50 PT 10.7 sec (9.3-11.0) 06/07/19 15:50 INR 1.1 (0.9-1.1) 06/07/19 15:50 APTT 23.4 sec (21.0-31.4) 06/07/19 15:50 ABG Sample Site Right radial 06/10/19 08:10 ABG pH 7.33 (7.35-7.45) L 06/10/19 08:10 ABG pCO2 65 mmHg (34-47) H* 06/10/19 08:10 ABG pO2 76 mmHg (83-108) L 06/10/19 08:10 ABG HCO3 35 mmol/L (22-28) H 06/10/19 08:10 ABG Total CO2 33 mmol/L (22-29) H 06/10/19 08:10 ABG O2 Saturation 95 % (94-98) 06/10/19 08:10 ABG Base Excess 8.6 mmol/L (-3-3) H 06/10/19 08:10 VBG pH 7.29 (7.35-7.45) L 06/11/19 16:00 VBG pCO2 69 mm/Hg (34-47) H* 06/11/19 16:00 VBG pO2 124 mm/Hg (28-44) H 06/11/19 16:00 VBG HCO3 33 mmol/L (22-28) H 06/11/19 16:00 VBG Total CO2 mmol/L (22-29) 06/11/19 16:00 VBG O2 Saturation > 99 % (70-80) H 06/11/19 16:00 VBG Base Excess 6.2 mmol/L (-3-3) H 06/11/19 16:00 Oxygen Liter Flow 1 L 06/10/19 08:10 FiO2 Remstar bipap 11/5 % 06/10/19 08:10 Sodium 140 mmol/L (136-145) 06/12/19 06:20 Potassium 5.0 mmol/L (3.5-5.1) 06/12/19 06:20 Chloride 104 mmol/L (98-107) 06/12/19 06:20 Carbon Dioxide 32.5 mmol/L (21.0-32.0) H 06/12/19 06:20 Anion Gap 3.5 mmol/L (3-11) 06/12/19 06:20 BUN 99 mg/dL (7-18) H* 06/12/19 06:20 Creatinine 2.39 mg/dL (0.70-1.30) H 06/12/19 06:20 Estimated GFR/1.73 m2 27.89 (mL/min/1.73m2) 06/12/19 06:20 Glucose 242 mg/dL (74-106) H D 06/12/19 06:20 Lactate 1.8 mmol/L (0.6-1.4) H 06/08/19 08:15 Calcium 9.0 mg/dL (8.5-10.1) 06/12/19 06:20 Magnesium 2.0 mg/dL (1.8-2.4) 06/12/19 06:20 Ferritin 106 ng/mL (26-388) 06/07/19 15:50 Total Bilirubin 0.8 mg/dL (0.2-1.0) 06/07/19 15:50 AST 27 U/L (15-37) 06/07/19 15:50 ALT 18 U/L (16-63) 06/07/19 15:50 Alkaline Phosphatase 94 U/L (46-116) 06/07/19 15:50 Lactate Dehydrogenase 270 U/L (85-227) H 06/07/19 15:50 Troponin I < 0.05 ng/Ml (<0.06) 06/07/19 15:50 C-Reactive Protein 1.22 mg/dL (0.0-0.3) H 06/12/19 06:20 NT-Pro-B Natriuret Pep 3144 pg/mL (<300) H 06/07/19 15:50 Total Protein 7.1 g/dL (6.4-8.2) 06/07/19 15:50 Albumin 2.9 g/dL (3.4-5.0) L 06/07/19 15:50 Procalcitonin 1.0 ng/mL 06/10/19 06:25 Urine Color Yellow (Yellow) 06/07/19 16:15 Urine Clarity Cloudy (Clear) 06/07/19 16:15 Urine pH 6.0 (5-8) 06/07/19 16:15 Ur Specific [place] 1.015 (1.005-1.025) 06/07/19 16:15 Urine Protein 100 mg/dL (Negative) H 06/07/19 16:15 Urine Ketones Negative mg/dL (Negative) 06/07/19 16:15 Urine Blood Moderate (Negative) H 06/07/19 16:15 Urine Nitrite Positive (Negative) H 06/07/19 16:15 Urine Bilirubin Negative (Negative) 06/07/19 16:15 Urine Urobilinogen 0.2 EU/dL (Up TO 0.2) 06/07/19 16:15 Ur Leukocyte Esterase Large (Negative) H 06/07/19 16:15 Urine RBC HPF (0-2) 06/07/19 16:15 Urine WBC >50 HPF (0-5) H 06/07/19 16:15 Ur Epithelial Cells Negative HPF (Negative) 06/07/19 16:15 Urine Crystals Not Applicable 06/07/19 16:15 Urine Bacteria Packed HPF (Negative) 06/07/19 16:15 Urine Casts 10-20 coarsegranular LPF (Negative) 06/07/19 16:15 Urine Mucus Not Applicable 06/07/19 16:15 Urine Other Many renal (Negative) 06/07/19 16:15 Ur Culture Indicated? Yes 06/07/19 16:15 Urine Glucose Negative mg/dL (Negative) 06/07/19 16:15 Vancomycin Trough 21.1 ug/mL (10.0-20.0) H* 06/10/19 11:55 Coronavirus (PCR) Negative (Negative) 06/07/19 17:15
[2019-06-12] MEDS: Hydrocortisone 1% CR 30 GM TUBE TP (19:00)
[2019-06-12] MEDS: Furosemide 40 MG TAB 80 MG PO (20:22)
[2019-06-12] MEDS: Melatonin 3 MG TAB 6 MG PO (21:09)
[2019-06-12] MEDS: risperiDONE 1 MG TAB 2 MG PO (21:10)
[2019-06-13] VITALS (20 sets, daily range): BP systolic 138–174; BP diastolic 63–79; PULSE 38–73; RESP 13–22; TEMP 36.5–37.2; O2SAT 90–100
[2019-06-13] MEDS: methylPREDNISolone SUCC 40 MG VIAL IVP (01:29)
[2019-06-13] MEDS: Normal Saline Flush 10 ML SYR IVP (01:29)
[2019-06-13] MEDS: Levothyroxine 25 MCG TAB 12.5 MCG PO (06:30)
[2019-06-13 06:59] LABS: Abs Immature Grans 0.01 k/cumm (0.0-0.09); Absolute Lymphocyte Count 0.28 k/cumm (1.2-3.4); Absolute Monocyte Count 0.07 k/cumm (0.11-0.7); HCT 36.3 % (40.0-50.0); Immature Grans % 0.3 %; Lymphocytes % 8.1; Mean Corp. HGB Concentration 27.5 g/dL (32.0-36.0); Mean Corpuscular Hemoglobin 21.6 pg (27.0-33.0); Mean Corpuscular Volume 78.2 fL (80-95); Mean Platelet Volume 9.8 fL (8.0-11.0); Neutrophils % 89.6; Platelet Count 270 x1000/uL (130-400); RBC 4.64 m/cumm (4.50-6.00); RBC Distribution Width 16.8 % (11.8-14.1); White Blood Cell Count 3.46 k/cumm (4.4-10.8)
[2019-06-13 07:16] LABS: Anion Gap 5.7 mmol/L (3-11); CO2 33.3 mmol/L (21.0-32.0); CREATININE 2.24 mg/dL (0.70-1.30); Calcium 9.2 mg/dL (8.5-10.1); Chloride 105 mmol/L (98-107); Estimated GFR 30.05 (mL/min/1.73m2); Glucose 202 mg/dL (74-106); Potassium 4.5 mmol/L (3.5-5.1); Sodium 144 mmol/L (136-145)
[2019-06-13 07:37] LABS: BUN 99 mg/dL (7-18)
[2019-06-13] MEDS: Cetirizine 10 MG TAB PO (08:33)
[2019-06-13] MEDS: Terazosin 2 MG CAP 4 MG PO ×2 (08:33→20:46)
[2019-06-13] MEDS: Gabapentin 300 MG CAP PO ×3 (08:34→20:46)
[2019-06-13] MEDS: Cyanocobalamin 500 MCG TAB 1000 MCG PO (08:34)
[2019-06-13] MEDS: Pantoprazole 40 MG TABCR PO (08:35)
[2019-06-13] MEDS: Furosemide 40 MG TAB 80 MG PO ×2 (08:36→20:47)
[2019-06-13] MEDS: Apixaban 2.5 MG TAB PO ×2 (08:36→20:47)
[2019-06-13] MEDS: predniSONE 10 MG, predniSONE 5 MG 15 MG PO (08:37)
[2019-06-13] MEDS: Insulin Glargine 300 UNITS/3 ML PEN 40 UNITS SC ×2 (08:37→20:46)
[2019-06-13] MEDS: Insulin Aspart 300 UNITS/3 ML PEN 10 UNITS SC ×3 (08:41→17:05)
[2019-06-13] MEDS: Insulin Aspart 300 UNITS/3 ML PEN SC ×4 (08:41→20:55)
[2019-06-13] MEDS: Ascorbic Acid 500 MG TAB 250 MG PO ×2 (08:42→20:46)
[2019-06-13] MEDS: amLODIPine 10 MG TAB PO (09:15)
--- NOTE | 2019-06-13 09:42 | PT.INTREAT ---
Date of service: 06/13/19 Time of Service: 09:42 PT Notes Visit Reasons: SEPSIS FROM UTI,?PNA,ACUTE ADRENAL CRISIS,ENCEPHAL Inpatient Physical Therapy Treatment Note [facility] Date: 06/13/2019 PRECAUTIONS: Fall. Contact precautions. Activity as tolerated. SUBJECTIVE: Patient is in good mood this morning, is pleasant and cooperative, agreeable to bed level exercises only and wanted to transfer to chair later this afternoon. OBJECTIVE: Telemetry monitoring in place. Downing catheter in place. Sacral wound dressing on. PAIN: None reported. BED MOBILITY/TRANSFERS Scooting up in bed: Patient is able push self up independently with bed in Trendelenburg position. THERA EX: Patient tolerated exercises below with good response: unilateral straight leg raises x 10 for 2 sets for each side unilateral supine hip flexion x 10 for 2 sets for each side unilateral supine hip abduction/adduction x 10 for each side adductor squeeze using folded pillow x 10 unilateral knee extension in supine with PT supporting thigh (SAQ) x 10 on each side ASSESSMENT: Patient tolerated exercises well. No new complaints. Remains to be in need of extensive assist for all transfer task performance. Will need consistent participation in order to effectively progress strength and mobility level. PLAN: Continue with PT POC as initially established. TREATMENT CODE/TIME: 79936 x 28 minutes beginning at 9:42 AM.
[2019-06-13] MEDS: cloNIDine 0.1 MG TAB PO ×3 (10:19→20:46)
[2019-06-13] MEDS: Ferrous Sulfate 325 MG TAB PO ×2 (10:19→20:55)
[2019-06-13] MEDS: Magnesium Chloride 64 MG TABCR PO ×2 (10:19→17:04)
--- NOTE | 2019-06-13 10:26 | CMPROGNOTE_ITS ---
- If Service Date Differs Date of service: 06/13/19 Time of Service: 10:26 Care Management Progress Note S/O: Brendan was presented at multidisciplinary rounds, CM completed chart review. RT recommends transition to a Trilogy unit r/t his rising CO2 levels and ABG's. RT is concerned the BIPAP is not effective in treating his chronic respiratory failure. Brendan was able to tolerate the [place] (BIPAP) device over night and tolerated it well. Per report his mentation has improved and he is near his baseline. CM will need to contact the [facility] Friday morning to review the need for Trilogy and discuss options. Brendan's BIPAP from the [facility] is here at [facility] he is not using the device RT feels that this device is not effective. He will need a Trilogy or comparable device obtained prior to him returning to the [facility]. RT/CM and the [facility] will need to coordinate discharge plan. A: Brendan is a 59 year old male admitted to [facility] on 06/07/19 with Sepsis from UTI, Acute Adrenal Crisis and encephalopathy. P: Brendan will return to the [facility] when medically cleared, which is where he resides. He will be transported via [facility] w/[facility] van, coordinated by CM. CM will communicate with the [facility] regarding his disposition. CM will continue to follow.
--- NOTE | 2019-06-13 13:55 | W.PM.PROGNOT ---
Date of Service Date of service: 06/13/19 Time of Service: 13:55 Assessment and Plan Assessment and plan (1) Sepsis: Status: Acute Assessment and plan: Sepsis from a urinary source. He has stabilized. He continues on the ceftriaxone to complete a 7-day course. Blood cultures on 06/07/2019 were no growth. (2) MRSA colonization: Status: Acute Assessment and plan: Vancomycin discontinued yesterday. He remained stable. (3) Acute respiratory failure with hypoxia and hypercarbia: Status: Acute Assessment and plan: He is tolerating the BiPAP from the [facility] device very well. The goal is to get him on a new device that will provide adequate volume and pressure to keep him from retaining carbon dioxide. (4) UTI (urinary tract infection): Status: Acute Assessment and plan: Growing E. coli sensitive to ceftriaxone. (5) Diabetes mellitus: Status: Chronic Assessment and plan: Blood sugars up slightly. DC'd the corticosteroids today. Qualifiers: Diabetes mellitus type: type 2 Diabetes mellitus rn long term care insulin use: with rn long term care use Diabetes mellitus complication status: with neurologic complications Diabetes mellitus complication detail: with polyneuropathy Qualified Code(s): E11.42 - Type 2 diabetes mellitus with diabetic polyneuropathy; Z79.4 - group home (current) use of insulin (6) Bradycardia: Status: Acute Assessment and plan: Heart rates have been running in the 50s. We will cut back his metoprolol to 12.5 mg twice daily. Continue his other blood pressure meds. (7) Discharge planning issues: Status: Acute Assessment and plan: Approaching [facility] the [facility]. We need to be sure he is the right respiratory equipment prior to transfer to prevent his return for hypoxic hypercapnia. He remains a full code. Subjective Subjective Interval history since last seen: I went states he feels about back to baseline. He has had some soreness around the decubital area. He says he slept well last night and was able to tolerate the BiPAP through the night. Appetite remains good. He remains largely bedbound. Exam Narrative Exam Narrative: On exam he appeared to be in good spirits and in no apparent distress. Lung exam was generally clear on the right and left. Heart sounds were regular. Abdomen nontender. Lower extremities no significant edema. The decubital area does show a circumscribed area that is slightly purpuric about 12 cm in diameter. There is a small central area of stage II ulceration about 1 cm in diameter. A DuoDERM dressing was in place. Neurologically there were no focal deficits. Objective Objective Clinical Data: Abnormal lab results 06/13/19 06/13/19 Range/Units 06:20 06:20 WBC 3.46 L (4.4-10.8) k/cumm Hgb 10.0 L (13.5-17.5) g/dL Hct 36.3 L (40.0-50.0) % MCV 78.2 L (80-95) fL MCH 21.6 L (27.0-33.0) pg MCHC 27.5 L (32.0-36.0) g/dL RDW 16.8 H (11.8-14.1) % Absolute Lymphocytes 0.28 L (1.2-3.4) k/cumm Absolute Monocytes 0.07 L (0.11-0.7) k/cumm Carbon Dioxide 33.3 H (21.0-32.0) mmol/L BUN 99 H* (7-18) mg/dL Creatinine 2.24 H (0.70-1.30) mg/dL Glucose 202 H (74-106) mg/dL Vital Signs Temperature 36.6 C 06/13/19 08:30 Temperature Source Temporal Artery Scan 06/13/19 08:30 Pulse 51 L 06/13/19 06:41 Pulse 39 L 06/13/19 04:01 Respiratory Rate 15 06/13/19 10:30 Respiratory Effort Non-Labored 06/13/19 08:30 Respiratory Depth Normal 06/13/19 08:30 Respiratory Pattern Normal 06/13/19 08:30 Blood Pressure 161/77 H 06/13/19 06:41 Blood Pressure Mean 105 06/13/19 06:41 Blood Pressure Position Supine 06/13/19 00:05 Pulse Oximetry 98 06/13/19 06:41 Oxygen Delivery Method Nasal Cannula 06/13/19 07:00 Oxygen Flow Rate 1 06/13/19 07:00 Fraction of Inspired Oxygen (FIO2) 30 06/13/19 08:57 Pain Level 0 06/13/19 06:41 Comment 06/07/19 19:59 Intake & Output 06/12/19 06/13/19 06/13/19 23:59 11:59 23:59 Intake Total 358 / 1468 960 / 960 Output Total 1750 / 2625 2100 / 2100 Balance -1392 / -1157 -1140 / -1140 Weight 106.8 kg Intake: Oral 358 / 1118 960 / 960 Output: Urine 1550 / 2150 1750 / 1750 Stool 200 / 475 350 / 350 Other: Urine Color Yellow Pale Yellow Urine Appearance Clear Clear Comment Downing in place draining clear urine. Downing in place draining clear pale colored urine. Stool Occult Blood Negative Negative Stool Size Moderate Stool Characteristics Soft Formed Brown Liquid Laboratory Results WBC 3.46 k/cumm (4.4-10.8) L 06/13/19 06:20 RBC 4.64 m/cumm (4.50-6.00) 06/13/19 06:20 Hgb 10.0 g/dL (13.5-17.5) L 06/13/19 06:20 Hct 36.3 % (40.0-50.0) L 06/13/19 06:20 MCV 78.2 fL (80-95) L 06/13/19 06:20 MCH 21.6 pg (27.0-33.0) L 06/13/19 06:20 MCHC 27.5 g/dL (32.0-36.0) L 06/13/19 06:20 RDW 16.8 % (11.8-14.1) H 06/13/19 06:20 Plt Count 270 x1000/uL (130-400) 06/13/19 06:20 MPV 9.8 fL (8.0-11.0) 06/13/19 06:20 Immature Gran % 0.3 % 06/13/19 06:20 Neutrophils % 89.6 06/13/19 06:20 Lymphocytes % 8.1 06/13/19 06:20 Monocytes % 2.0 06/13/19 06:20 Eosinophils % 0.0 06/13/19 06:20 Basophils % 0.0 06/13/19 06:20 Absolute Neutrophils 3.10 k/cumm (1.2-6.7) 06/13/19 06:20 Absolute Lymphocytes 0.28 k/cumm (1.2-3.4) L 06/13/19 06:20 Absolute Monocytes 0.07 k/cumm (0.11-0.7) L 06/13/19 06:20 Absolute Eosinophils 0.00 k/cumm (0.0-0.7) 06/13/19 06:20 Absolute Basophils 0.00 k/cumm (0.0-0.2) 06/13/19 06:20 Differential Comment Rbc morph reviewed 06/09/19 06:15 RBC Morphology See below 06/09/19 06:15 Polychromasia Present 06/07/19 15:50 Hypochromasia 2+ 06/09/19 06:15 Poikilocytosis 1+ 06/09/19 06:15 Basophilic Stippling 1+ 06/07/19 15:50 Anisocytosis 3+ 06/09/19 06:15 Microcytosis 2+ 06/09/19 06:15 Tear Drop Cells 2+ 06/07/19 15:50 Ovalocytes 3+ 06/09/19 06:15 Stomatocytes 3+ 06/07/19 15:50 PT 10.7 sec (9.3-11.0) 06/07/19 15:50 INR 1.1 (0.9-1.1) 06/07/19 15:50 APTT 23.4 sec (21.0-31.4) 06/07/19 15:50 ABG Sample Site Right radial 06/10/19 08:10 ABG pH 7.33 (7.35-7.45) L 06/10/19 08:10 ABG pCO2 65 mmHg (34-47) H* 06/10/19 08:10 ABG pO2 76 mmHg (83-108) L 06/10/19 08:10 ABG HCO3 35 mmol/L (22-28) H 06/10/19 08:10 ABG Total CO2 33 mmol/L (22-29) H 06/10/19 08:10 ABG O2 Saturation 95 % (94-98) 06/10/19 08:10 ABG Base Excess 8.6 mmol/L (-3-3) H 06/10/19 08:10 VBG pH 7.29 (7.35-7.45) L 06/11/19 16:00 VBG pCO2 69 mm/Hg (34-47) H* 06/11/19 16:00 VBG pO2 124 mm/Hg (28-44) H 06/11/19 16:00 VBG HCO3 33 mmol/L (22-28) H 06/11/19 16:00 VBG Total CO2 mmol/L (22-29) 06/11/19 16:00 VBG O2 Saturation > 99 % (70-80) H 06/11/19 16:00 VBG Base Excess 6.2 mmol/L (-3-3) H 06/11/19 16:00 Oxygen Liter Flow 1 L 06/10/19 08:10 FiO2 Remstar bipap 11/5 % 06/10/19 08:10 Sodium 144 mmol/L (136-145) 06/13/19 06:20 Potassium 4.5 mmol/L (3.5-5.1) 06/13/19 06:20 Chloride 105 mmol/L (98-107) 06/13/19 06:20 Carbon Dioxide 33.3 mmol/L (21.0-32.0) H 06/13/19 06:20 Anion Gap 5.7 mmol/L (3-11) 06/13/19 06:20 BUN 99 mg/dL (7-18) H* 06/13/19 06:20 Creatinine 2.24 mg/dL (0.70-1.30) H 06/13/19 06:20 Estimated GFR/1.73 m2 30.05 (mL/min/1.73m2) 06/13/19 06:20 Glucose 202 mg/dL (74-106) H 06/13/19 06:20 Lactate 1.8 mmol/L (0.6-1.4) H 06/08/19 08:15 Calcium 9.2 mg/dL (8.5-10.1) 06/13/19 06:20 Magnesium 2.0 mg/dL (1.8-2.4) 06/12/19 06:20 Ferritin 106 ng/mL (26-388) 06/07/19 15:50 Total Bilirubin 0.8 mg/dL (0.2-1.0) 06/07/19 15:50 AST 27 U/L (15-37) 06/07/19 15:50 ALT 18 U/L (16-63) 06/07/19 15:50 Alkaline Phosphatase 94 U/L (46-116) 06/07/19 15:50 Lactate Dehydrogenase 270 U/L (85-227) H 06/07/19 15:50 Troponin I < 0.05 ng/Ml (<0.06) 06/07/19 15:50 C-Reactive Protein 1.22 mg/dL (0.0-0.3) H 06/12/19 06:20 NT-Pro-B Natriuret Pep 3144 pg/mL (<300) H 06/07/19 15:50 Total Protein 7.1 g/dL (6.4-8.2) 06/07/19 15:50 Albumin 2.9 g/dL (3.4-5.0) L 06/07/19 15:50 Procalcitonin 1.0 ng/mL 06/10/19 06:25 Urine Color Yellow (Yellow) 06/07/19 16:15 Urine Clarity Cloudy (Clear) 06/07/19 16:15 Urine pH 6.0 (5-8) 06/07/19 16:15 Ur Specific [place] 1.015 (1.005-1.025) 06/07/19 16:15 Urine Protein 100 mg/dL (Negative) H 06/07/19 16:15 Urine Ketones Negative mg/dL (Negative) 06/07/19 16:15 Urine Blood Moderate (Negative) H 06/07/19 16:15 Urine Nitrite Positive (Negative) H 06/07/19 16:15 Urine Bilirubin Negative (Negative) 06/07/19 16:15 Urine Urobilinogen 0.2 EU/dL (Up TO 0.2) 06/07/19 16:15 Ur Leukocyte Esterase Large (Negative) H 06/07/19 16:15 Urine RBC HPF (0-2) 06/07/19 16:15 Urine WBC >50 HPF (0-5) H 06/07/19 16:15 Ur Epithelial Cells Negative HPF (Negative) 06/07/19 16:15 Urine Crystals Not Applicable 06/07/19 16:15 Urine Bacteria Packed HPF (Negative) 06/07/19 16:15 Urine Casts 10-20 coarsegranular LPF (Negative) 06/07/19 16:15 Urine Mucus Not Applicable 06/07/19 16:15 Urine Other Many renal (Negative) 06/07/19 16:15 Ur Culture Indicated? Yes 06/07/19 16:15 Urine Glucose Negative mg/dL (Negative) 06/07/19 16:15 Vancomycin Trough 21.1 ug/mL (10.0-20.0) H* 06/10/19 11:55 Coronavirus (PCR) Negative (Negative) 06/07/19 17:15
--- NOTE | 2019-06-13 14:02 | NUR.NOTE ---
pt transferred from ICU to [facility] room 212.Nursing Note:
[2019-06-13] MEDS: cefTRIAXone 1 GM/50 ML BAG IVPB (14:33)
[2019-06-13] MEDS: Metoprolol 25 MG TAB 12.5 MG PO (20:47)
[2019-06-13] MEDS: Melatonin 3 MG TAB 6 MG PO (20:55)
[2019-06-13] MEDS: risperiDONE 1 MG TAB 2 MG PO (20:55)
[2019-06-14] VITALS (8 sets, daily range): BP systolic 143–177; BP diastolic 74–84; PULSE 54–71; RESP 14–20; TEMP 36–36.7; O2SAT 94–100
[2019-06-14] MEDS: Levothyroxine 25 MCG TAB 12.5 MCG PO (05:35)
[2019-06-14 06:52] LABS: Abs Immature Grans 0.06 k/cumm (0.0-0.09); Absolute Lymphocyte Count 0.41 k/cumm (1.2-3.4); Absolute Monocyte Count 0.51 k/cumm (0.11-0.7); Absolute Neutrophil Count 4.23 k/cumm (1.2-6.7); Eosinophils % 1.9; HCT 35.3 % (40.0-50.0); HGB 10.1 g/dL (13.5-17.5); Immature Grans % 1.1 %; Lymphocytes % 7.7; Mean Corp. HGB Concentration 28.6 g/dL (32.0-36.0); Mean Corpuscular Hemoglobin 21.8 pg (27.0-33.0); Mean Corpuscular Volume 76.1 fL (80-95); Mean Platelet Volume 10.3 fL (8.0-11.0); Monocytes % 9.6; Neutrophils % 79.7; Platelet Count 246 x1000/uL (130-400); RBC 4.64 m/cumm (4.50-6.00); RBC Distribution Width 16.7 % (11.8-14.1); White Blood Cell Count 5.31 k/cumm (4.4-10.8)
[2019-06-14 07:03] LABS: Anion Gap 3.2 mmol/L (3-11); CO2 35.8 mmol/L (21.0-32.0); CREATININE 1.85 mg/dL (0.70-1.30); Calcium 8.8 mg/dL (8.5-10.1); Chloride 102 mmol/L (98-107); Estimated GFR 37.48 (mL/min/1.73m2); Glucose 101 mg/dL (74-106); Potassium 3.3 mmol/L (3.5-5.1); Sodium 141 mmol/L (136-145)
[2019-06-14 07:10] LABS: BUN 89 mg/dL (7-18)
[2019-06-14] MEDS: Terazosin 2 MG CAP 4 MG PO ×2 (08:00→21:40)
[2019-06-14] MEDS: Ascorbic Acid 500 MG TAB 250 MG PO ×2 (08:00→21:41)
[2019-06-14] MEDS: Gabapentin 300 MG CAP PO ×3 (08:01→21:40)
[2019-06-14] MEDS: Cetirizine 10 MG TAB PO (08:01)
[2019-06-14] MEDS: amLODIPine 10 MG TAB PO (08:01)
[2019-06-14] MEDS: Metoprolol 25 MG TAB 12.5 MG PO ×2 (08:01→21:39)
[2019-06-14] MEDS: Pantoprazole 40 MG TABCR PO (08:01)
[2019-06-14] MEDS: predniSONE 10 MG, predniSONE 5 MG 15 MG PO (08:01)
[2019-06-14] MEDS: cloNIDine 0.1 MG TAB PO ×3 (08:01→21:40)
[2019-06-14] MEDS: Furosemide 40 MG TAB 80 MG PO ×2 (08:02→21:41)
[2019-06-14] MEDS: Cyanocobalamin 500 MCG TAB 1000 MCG PO (08:02)
[2019-06-14] MEDS: Hydrocortisone 1% CR 30 GM TUBE TP (08:02)
[2019-06-14] MEDS: Insulin Glargine 300 UNITS/3 ML PEN 40 UNITS SC ×2 (08:02→21:42)
[2019-06-14] MEDS: Apixaban 2.5 MG TAB PO ×2 (08:02→21:40)
[2019-06-14] MEDS: Insulin Aspart 300 UNITS/3 ML PEN 10 UNITS SC ×3 (08:03→16:47)
[2019-06-14] MEDS: Magnesium Chloride 64 MG TABCR PO ×2 (09:16→16:58)
[2019-06-14] MEDS: Potassium Chloride 20 MEQ TABCR 40 MEQ PO (09:16)
[2019-06-14] MEDS: Ferrous Sulfate 325 MG TAB PO ×2 (09:16→21:41)
--- NOTE | 2019-06-14 11:01 | OT.INTREAT ---
Date of service: 06/14/19 Time of Service: 10:25 Occupational Therapy Notes Occupational Therapy Inpatient Treatment Note Date: 06/14/19 PRECAUTIONS: Fall, Standard, FULL SUBJECTIVE: Pt was getting washed up with RELAY TESTER when OT arrived. He was agreeable to OT session and states that he believes he will be returning back to the [facility] today. OBJECTIVE: PAIN:No c/o pain FUNCTIONAL MOBILITY Rolling L/R: Mod (A) Supine-sit: Min vc, min (A) Sit-supine: (S) BATHING: Sitting in bed With (L) UE pt is able to wash his face, he can touch his (R) shoulder and can reach mid pectoral region with his (R) UE. He can palpate his abdomen but requires mod (A) with bathing. Max (A) for back and [place] area, max (A) (B) LE. DRESSING: Sitting in bed Mod (A) [facility] gown. EATING: Performed prior to OT arrival. THEREX: Pt has a weak skating rink manager strength (B). This is demonstrated with decreased gross and fine motor control in pts (B) UE. OT provides pt with pink foam cube to perform skating rink manager strengthening as tolerated for (B) UE. ASSESSMENT/PLAN: Pt is more alert at todays session. He states that the plan is for him to return to the [facility] today. Functionally OT was able to achieve full shoulder flexion of (L) UE without pain behaviors. He has decreased fine motor control of his digits which affects his ability to perform his ADLs/IADLs. TREATMENT CODES/TIME: [id number], 15 minutes (10:25) [facility]
--- NOTE | 2019-06-14 11:20 | PGE_ITS ---
Date of Service Date of service: 06/14/19 Time of Service: Assessment and Plan Assessment and plan (1) Sepsis: Start date: 06/14/19 Start time: 11:24 Status: Resolved Assessment and plan: Resolved. finished 7 day course rocephin. (2) MRSA colonization: Start date: 06/14/19 Start time: 11:25 Status: Acute Assessment and plan: He remains stable (3) Acute respiratory failure with hypoxia and hypercarbia: Start date: 06/14/19 Start time: 11:25 Status: Acute Assessment and plan: He is tolerating the BiPAP from the [facility] device very well. The goal is to get him on a new device that will provide adequate volume and pressure to keep him from retaining carbon dioxide. RT is working on triology (4) UTI (urinary tract infection): Start date: 06/14/19 Start time: 11: Status: Resolved Assessment and plan: Growing E. coli sensitive to ceftriaxone. Finished 7 day course ceftriaxone. (5) Diabetes mellitus: Start date: 06/14/19 Start time: : Status: Chronic Assessment and plan: Blood sugars up slightly. DC'd the corticosteroids today. 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 We will cut back his metoprolol to 12.5 mg twice daily. Continue his other blood pressure meds. (7) Discharge planning issues: Start date: 06/14/19 Start time: 11:28 Status: Acute Assessment and plan: Possible d/c to [facility] this afternoon, but likely tomorrow. Will need triology prior to discharge. RT to work on. Above case discussed with Dr. Rodriguez who is in agreement. Subjective Subjective Patient reports: no new complaints Interval history since last seen: Sleeping with oxygen on when evaluating patient. No complaints. Denies CP, SOB, n/v/d. Exam Narrative Exam Narrative: On exam he is sleeping with oxygen on, arouses easily and answers questions appropriately. Lung exam was generally clear on the right and left. Heart sounds were regular. Abdomen nontender. Lower extremities with slight edema. The decubital area does show a circumscribed area that is slightly purpuric about 12 cm in diameter. There is a small central area of stage II ulceration about 1 cm in diameter. A DuoDERM dressing was in place. Neurologically there were no focal deficits. Objective Objective Clinical Data: Abnormal lab results 06/14/19 06/14/19 Range/Units 06:35 06:35 Hgb 10.1 L (13.5-17.5) g/dL Hct 35.3 L (40.0-50.0) % MCV 76.1 L (80-95) fL MCH 21.8 L (27.0-33.0) pg MCHC 28.6 L (32.0-36.0) g/dL RDW 16.7 H (11.8-14.1) % Absolute Lymphocytes 0.41 L (1.2-3.4) k/cumm Potassium 3.3 L D (3.5-5.1) mmol/L Carbon Dioxide 35.8 H (21.0-32.0) mmol/L BUN 89 H* (7-18) mg/dL Creatinine 1.85 H (0.70-1.30) mg/dL Vital Signs Temperature 36.4 C L 06/14/19 07:48 Temperature Source Tympanic 06/14/19 07:48 Pulse 57 L 06/14/19 07:48 Pulse Rhythm Regular 06/14/19 08:57 Pulse 39 L 06/13/19 04:01 Respiratory Rate 18 06/14/19 07:48 Respiratory Effort Non-Labored 06/14/19 08:57 Respiratory Depth Normal 06/14/19 08:57 Respiratory Pattern Normal 06/14/19 08:57 Blood Pressure 151/82 H 06/14/19 07:48 Blood Pressure Mean 105 06/13/19 06:41 Blood Pressure Position Supine 06/13/19 00:05 Pulse Oximetry 95 06/14/19 07:48 Oxygen Delivery Method Room Air 06/14/19 07:48 Oxygen Flow Rate 0 06/14/19 07:48 Fraction of Inspired Oxygen (FIO2) 30 06/14/19 08:11 Pain Level 0 06/14/19 07:48 Comment 06/07/19 19:59 Intake & Output 06/13/19 06/13/19 06/14/19 11:59 23:59 11:59 Intake Total 960 / 1607 647 / 1607 250 / 250 Output Total 2100 / 5975 3875 / 5975 1700 / 1700 Balance -1140 / -4368 -3228 / -4368 -1450 / -1450 Weight 106.8 kg 104.7 kg Intake: IV 50 / 50 Oral 960 / 1557 597 / 1557 250 / 250 Output: Urine 1750 / 4850 3100 / 4850 975 / 975 Stool 350 / 1125 775 / 1125 725 / 725 Other: Urine Color Pale Yellow Yellow Yellow Urine Appearance Clear Clear Clear Urine Odor Normal Normal Comment Downing in place draining clear pale colored urine. Catheter Disc ontinued by Collin Santana RN in prepping for transfur to [facility] with [employer] Stool Occult Blood Negative Stool Characteristics Formed Liquid Voiding Methods Urinal Incontinent Laboratory Results WBC 5.31 k/cumm (4.4-10.8) D 06/14/19 06:35 RBC 4.64 m/cumm (4.50-6.00) 06/14/19 06:35 Hgb 10.1 g/dL (13.5-17.5) L 06/14/19 06:35 Hct 35.3 % (40.0-50.0) L 06/14/19 06:35 MCV 76.1 fL (80-95) L 06/14/19 06:35 MCH 21.8 pg (27.0-33.0) L 06/14/19 06:35 MCHC 28.6 g/dL (32.0-36.0) L 06/14/19 06:35 RDW 16.7 % (11.8-14.1) H 06/14/19 06:35 Plt Count 246 x1000/uL (130-400) 06/14/19 06:35 MPV 10.3 fL (8.0-11.0) 06/14/19 06:35 Immature Gran % 1.1 % 06/14/19 06:35 Neutrophils % 79.7 06/14/19 06:35 Lymphocytes % 7.7 06/14/19 06:35 Monocytes % 9.6 06/14/19 06:35 Eosinophils % 1.9 06/14/19 06:35 Basophils % 0.0 06/14/19 06:35 Absolute Neutrophils 4.23 k/cumm (1.2-6.7) 06/14/19 06:35 Absolute Lymphocytes 0.41 k/cumm (1.2-3.4) L 06/14/19 06:35 Absolute Monocytes 0.51 k/cumm (0.11-0.7) 06/14/19 06:35 Absolute Eosinophils 0.10 k/cumm (0.0-0.7) 06/14/19 06:35 Absolute Basophils 0.00 k/cumm (0.0-0.2) 06/14/19 06:35 Differential Comment Rbc morph reviewed 06/09/19 06:15 RBC Morphology See below 06/09/19 06:15 Polychromasia Present 06/07/19 15:50 Hypochromasia 2+ 06/09/19 06:15 Poikilocytosis 1+ 06/09/19 06:15 Basophilic Stippling 1+ 06/07/19 15:50 Anisocytosis 3+ 06/09/19 06:15 Microcytosis 2+ 06/09/19 06:15 Tear Drop Cells 2+ 06/07/19 15:50 Ovalocytes 3+ 06/09/19 06:15 Stomatocytes 3+ 06/07/19 15:50 PT 10.7 sec (9.3-11.0) 06/07/19 15:50 INR 1.1 (0.9-1.1) 06/07/19 15:50 APTT 23.4 sec (21.0-31.4) 06/07/19 15:50 ABG Sample Site Right radial 06/10/19 08:10 ABG pH 7.33 (7.35-7.45) L 06/10/19 08:10 ABG pCO2 65 mmHg (34-47) H* 06/10/19 08:10 ABG pO2 76 mmHg (83-108) L 06/10/19 08:10 ABG HCO3 35 mmol/L (22-28) H 06/10/19 08:10 ABG Total CO2 33 mmol/L (22-29) H 06/10/19 08:10 ABG O2 Saturation 95 % (94-98) 06/10/19 08:10 ABG Base Excess 8.6 mmol/L (-3-3) H 06/10/19 08:10 VBG pH 7.29 (7.35-7.45) L 06/11/19 16:00 VBG pCO2 69 mm/Hg (34-47) H* 06/11/19 16:00 VBG pO2 124 mm/Hg (28-44) H 06/11/19 16:00 VBG HCO3 33 mmol/L (22-28) H 06/11/19 16:00 VBG Total CO2 mmol/L (22-29) 06/11/19 16:00 VBG O2 Saturation > 99 % (70-80) H 06/11/19 16:00 VBG Base Excess 6.2 mmol/L (-3-3) H 06/11/19 16:00 Oxygen Liter Flow 1 L 06/10/19 08:10 FiO2 Remstar bipap 11/5 % 06/10/19 08:10 Sodium 141 mmol/L (136-145) 06/14/19 06:35 Potassium 3.3 mmol/L (3.5-5.1) L D 06/14/19 06:35 Chloride 102 mmol/L (98-107) 06/14/19 06:35 Carbon Dioxide 35.8 mmol/L (21.0-32.0) H 06/14/19 06:35 Anion Gap 3.2 mmol/L (3-11) 06/14/19 06:35 BUN 89 mg/dL (7-18) H* 06/14/19 06:35 Creatinine 1.85 mg/dL (0.70-1.30) H 06/14/19 06:35 Estimated GFR/1.73 m2 37.48 (mL/min/1.73m2) 06/14/19 06:35 Glucose 101 mg/dL (74-106) D 06/14/19 06:35 Lactate 1.8 mmol/L (0.6-1.4) H 06/08/19 08:15 Calcium 8.8 mg/dL (8.5-10.1) 06/14/19 06:35 Magnesium 2.0 mg/dL (1.8-2.4) 06/12/19 06:20 Ferritin 106 ng/mL (26-388) 06/07/19 15:50 Total Bilirubin 0.8 mg/dL (0.2-1.0) 06/07/19 15:50 AST 27 U/L (15-37) 06/07/19 15:50 ALT 18 U/L (16-63) 06/07/19 15:50 Alkaline Phosphatase 94 U/L (46-116) 06/07/19 15:50 Lactate Dehydrogenase 270 U/L (85-227) H 06/07/19 15:50 Troponin I < 0.05 ng/Ml (<0.06) 06/07/19 15:50 C-Reactive Protein 1.22 mg/dL (0.0-0.3) H 06/12/19 06:20 NT-Pro-B Natriuret Pep 3144 pg/mL (<300) H 06/07/19 15:50 Total Protein 7.1 g/dL (6.4-8.2) 06/07/19 15:50 Albumin 2.9 g/dL (3.4-5.0) L 06/07/19 15:50 Procalcitonin 1.0 ng/mL 06/10/19 06:25 Urine Color Yellow (Yellow) 06/07/19 16:15 Urine Clarity Cloudy (Clear) 06/07/19 16:15 Urine pH 6.0 (5-8) 06/07/19 16:15 Ur Specific [place] 1.015 (1.005-1.025) 06/07/19 16:15 Urine Protein 100 mg/dL (Negative) H 06/07/19 16:15 Urine Ketones Negative mg/dL (Negative) 06/07/19 16:15 Urine Blood Moderate (Negative) H 06/07/19 16:15 Urine Nitrite Positive (Negative) H 06/07/19 16:15 Urine Bilirubin Negative (Negative) 06/07/19 16:15 Urine Urobilinogen 0.2 EU/dL (Up TO 0.2) 06/07/19 16:15 Ur Leukocyte Esterase Large (Negative) H 06/07/19 16:15 Urine RBC HPF (0-2) 06/07/19 16:15 Urine WBC >50 HPF (0-5) H 06/07/19 16:15 Ur Epithelial Cells Negative HPF (Negative) 06/07/19 16:15 Urine Crystals Not Applicable 06/07/19 16:15 Urine Bacteria Packed HPF (Negative) 06/07/19 16:15 Urine Casts 10-20 coarsegranular LPF (Negative) 06/07/19 16:15 Urine Mucus Not Applicable 06/07/19 16:15 Urine Other Many renal (Negative) 06/07/19 16:15 Ur Culture Indicated? Yes 06/07/19 16:15 Urine Glucose Negative mg/dL (Negative) 06/07/19 16:15 Vancomycin Trough 21.1 ug/mL (10.0-20.0) H* 06/10/19 11:55 Coronavirus (PCR) Negative (Negative) 06/07/19 17:15
[2019-06-14] MEDS: Insulin Aspart 300 UNITS/3 ML PEN SC ×3 (11:58→21:41)
--- NOTE | 2019-06-14 13:15 | PT.INTREAT ---
Date of service: 06/14/19 Time of Service: 13:15 PT Notes Visit Reasons: SEPSIS FROM UTI,?PNA,ACUTE ADRENAL CRISIS,ENCEPHAL Inpatient Physical Therapy Treatment Note [facility] Date: 06/14/2019 PRECAUTIONS: Fall. Standard precautions. Activity as tolerated. SUBJECTIVE: Second day of patient being cooperative with PT. Agreeable to doing bed level exercises and to walking a short distance. States that he may go home today or tomorrow depending on whether Trilogy machine can be procured for him by RT. OBJECTIVE: Sacral wound dressing on. Oxygen supplement via NC. Mild edema to B LE. Leg wound dressing on. Telemetry monitoring and ruiz catheter discharged before today's session. PAIN: None reported. BED MOBILITY/TRANSFERS Scooting up in bed: Patient is able push self up independently with bed in Trendelenburg position. Sit to stand from high bed: minimal assist of 2 with both hands pushing off edge of bed, L hand guided onto L walker handle Stand to sit onto recliner chair: minimal assist of 2 with verbal cues needed for backing up and reaching behind fro armrests prior to descent THERA EX: Patient tolerated exercises below with good response: unilateral straight leg raises x 10 for 2 sets for each side unilateral supine hip abduction/adduction x 10 for 2 sets for each side adductor squeeze using folded pillow x 10 for 2 sets unilateral knee extension in supine with PT supporting thigh (SAQ) x 10 on each side for 2 sets for each side ASSESSMENT: Patient tolerated session well. No new complaints. Increased independence and self-confidence with mobility ADL performance. Will cotntinue to need consistent participation in order to effectively progress strength and mobility level. PLAN: Continue with PT POC as initially established. Return to SNF when medically cleared. Cntinue with skilled PT at SNF to progress mobility level and increase strength. TREATMENT CODE/TIME: 25804 x 25 minutes, 90800 x 16 beginning at 13:15 PM.
--- NOTE | 2019-06-14 17:14 | CMPROGNOTE_ITS ---
- If Service Date Differs Date of service: 06/14/19 Time of Service: 17:14 Care Management Progress Note S/O: Brendan was sitting up in bed when CM met with him. He reported that he was feeling better today. CM discussed his discharge plan with him, which is to discuss his respiratory needs with the [facility] in order to determine if he will return with a Trilogy vs BiPap with [facility]. Once that is coordinated, he will be ready to return to the [facility], as it is his residence. CM had multiple phone rivas ls/emails between RT and the [facility] throughout the day. Phyllis from the [facility] called at 12:00 and reported that they had looked over the options and would move forward with the Trilogy machine. Later, at 16:30 Phyllis called and stated that they would not be able to take Brendan back with a Trilogy machine due to the extra care he would require. CM asked if they had been educated by [facility], which she reported that she had spoken with them, and understood the level of care. CM discussed this with Dr. Rodriguez who stated that he would call and discuss this with the [facility], as it does not require additional care, and may, in fact reduce the level of care. CM will continue to follow. A: Brendan is a 59 year old male admitted to [facility] on 06/07/19 with Sepsis from UTI, Acute Adrenal Crisis and encephalopathy. P: Brendan will return to the [facility] when medically cleared, which is where he resides. He will be transported via [facility] van, coordinated by CM. CM will communicate with the [facility] regarding his disposition. CM will continue to follow.
[2019-06-14] MEDS: risperiDONE 1 MG TAB 2 MG PO (21:40)
[2019-06-14] MEDS: Melatonin 3 MG TAB 6 MG PO (21:41)
[2019-06-15] VITALS (9 sets, daily range): BP systolic 139–183; BP diastolic 63–81; PULSE 55–69; RESP 12–20; TEMP 36.4–37.1; O2SAT 94–100
[2019-06-15] MEDS: Levothyroxine 25 MCG TAB 12.5 MCG PO (06:47)
[2019-06-15 07:17] LABS: Anion Gap 4.6 mmol/L (3-11); BUN 75 mg/dL (7-18); CO2 36.4 mmol/L (21.0-32.0); CREATININE 1.66 mg/dL (0.70-1.30); Calcium 8.3 mg/dL (8.5-10.1); Chloride 103 mmol/L (98-107); Estimated GFR 42.47 (mL/min/1.73m2); Glucose 182 mg/dL (74-106); Potassium 3.2 mmol/L (3.5-5.1); Sodium 144 mmol/L (136-145)
[2019-06-15] MEDS: Hydrocortisone 1% CR 30 GM TUBE TP (09:07)
[2019-06-15] MEDS: Insulin Aspart 300 UNITS/3 ML PEN SC ×4 (09:08→20:56)
[2019-06-15] MEDS: Insulin Aspart 300 UNITS/3 ML PEN 10 UNITS SC ×3 (09:10→17:23)
[2019-06-15] MEDS: Insulin Glargine 300 UNITS/3 ML PEN 40 UNITS SC ×2 (09:11→20:43)
[2019-06-15] MEDS: Apixaban 2.5 MG TAB PO ×2 (09:13→20:43)
[2019-06-15] MEDS: Pantoprazole 40 MG TABCR PO (09:13)
[2019-06-15] MEDS: amLODIPine 10 MG TAB PO (09:13)
[2019-06-15] MEDS: predniSONE 10 MG, predniSONE 5 MG 15 MG PO (09:13)
[2019-06-15] MEDS: Cetirizine 10 MG TAB PO (09:14)
[2019-06-15] MEDS: Furosemide 40 MG TAB 80 MG PO ×2 (09:14→20:50)
[2019-06-15] MEDS: cloNIDine 0.1 MG TAB PO ×3 (09:14→20:43)
[2019-06-15] MEDS: Gabapentin 300 MG CAP PO ×3 (09:14→20:43)
[2019-06-15] MEDS: Ascorbic Acid 500 MG TAB 250 MG PO ×2 (09:14→20:41)
[2019-06-15] MEDS: Cyanocobalamin 500 MCG TAB 1000 MCG PO (09:14)
[2019-06-15] MEDS: Metoprolol 25 MG TAB 12.5 MG PO ×2 (09:14→20:42)
[2019-06-15] MEDS: Terazosin 2 MG CAP 4 MG PO ×2 (09:15→20:41)
[2019-06-15] MEDS: Ferrous Sulfate 325 MG TAB PO ×2 (10:10→20:56)
[2019-06-15] MEDS: Magnesium Chloride 64 MG TABCR PO ×2 (10:10→17:23)
--- NOTE | 2019-06-15 10:13 | OT.INTREAT ---
Date of service: 06/15/19 Time of Service: 09:25 Occupational Therapy Notes Occupational Therapy Inpatient Treatment Note Date: 06/15/19 PRECAUTIONS: Fall, Standard, Full SUBJECTIVE: Pt was sitting in bed when OT arrived. He reports that he is unsure when he will be leaving but states that he feels a little bit better. OBJECTIVE: PAIN: no c/o pain FUNCTIONAL MOBILITY Rolling L/R: Min (A) Supine-sit: Mod (A) Sit-stand: Min vc, min (A) Stand-sit: Min vc and mod (A) BATHING: Lying in bed Able to (I) wash hand, face and with (L) UE he can wash (R) shoulder and slightly into pectoral region. He was max (A) for the rest of his bathing routines. DRESSING: Sitting in chair Upper Extremity: Mod (A) don and doffing [facility] gown. EATING: Sitting in chair, max (A) opening containers, (I) food to mouth. OT again recommends red foam for built up handles to compensate for lack of fine motor skills. ASSESSMENT/PLAN: Pt tolerated session well. He was receptive to OT services and performance of (I) in ADLs. He does have limitations at baseline in terms of (B) UE ROM. He functionally demonstrated fair-good performance of ADLs and required min-mod vc throughout. TREATMENT CODES/TIME: 36232l3, 45 minutes (08:35) [facility]
[2019-06-15] MEDS: Potassium Chloride 20 MEQ TABCR 40 MEQ PO (11:51)
--- NOTE | 2019-06-15 13:19 | PT.INTREAT ---
Date of service: 06/15/19 Time of Service: 13:19 PT Notes Visit Reasons: SEPSIS FROM UTI,?PNA,ACUTE ADRENAL CRISIS,ENCEPHAL Inpatient Physical Therapy Treatment Note [facility] Date: 06/15/2019 PRECAUTIONS: Fall. Standard precautions. Activity as tolerated. SUBJECTIVE: Brendan notes that overall he is feeling better. He notes that he is willing to do some exercises however does not want to walk. Patient refused PT session in PM due to fatigue. OBJECTIVE: Sacral wound dressing on. Oxygen supplement via NC. Mild edema to B LE. Leg wound dressing on. PAIN: Noting mild irritation of his neck BED MOBILITY/TRANSFERS Scooting up in bed: Patient is able push self up independently with bed in Trendelenburg position. Sit to stand from high bed: minimal assist of 2 with both hands pushing off edge of bed, L hand guided onto L walker handle Stand to sit onto recliner chair: minimal assist of 2 with verbal cues needed for backing up and reaching behind for armrests prior to descent Recliner chair to bed: minimal assist of 2 with use of FWW, cues needed for hand placement reaching behind for bed prior to descent. THERA EX: Patient tolerated exercises below with good response: LAQ 10 reps each side, seated hip flexion 10 reps each leg, seated hip adduction squeeze against pillow 10 reps, elbow flexion 10 reps, Seated hip abduction 10 reps each side ASSESSMENT: Patient tolerated session well. No new complaints. Increased independence and self-confidence with mobility ADL performance. Will continue to need consistent participation in order to effectively progress strength and mobility level. PLAN: Continue with PT POC as initially established. Return to SNF when medically cleared. Continue with skilled PT at SNF to progress mobility level and increase strength. TREATMENT CODE/TIME: 80104q3, 46173 x1 25 minutes beginning at 9:10 AM.
--- NOTE | 2019-06-15 14:36 | PGE_ITS ---
Date of Service Date of service: 06/15/19 Time of Service: 14:36 Assessment and Plan Assessment and plan (1) Acute respiratory failure with hypoxia and hypercarbia: Status: Acute Assessment and plan: Although he did not have as good night last night with the BiPAP unit, there was not because of poor fitting mask and I think his adherence with the triology will be acceptable. The goal is to provide better respiratory support to avoid recurrent hospitalizations because of hypoventilation, hypercarbia and hypoxia. Staff at the [facility] will be trained on the new unit with plans for discharge tomorrow. (2) Sepsis: Status: Resolved Assessment and plan: Resolved. finished 7 day course rocephin. (3) MRSA colonization: Status: Acute Assessment and plan: He remains stable. No treatment planned. (4) UTI (urinary tract infection): Status: Resolved Assessment and plan: Growing E. coli sensitive to ceftriaxone. Finished 7 day course ceftriaxone. (5) Diabetes mellitus: Status: Chronic Assessment and plan: Blood sugars up slightly. Continue current dose prednisone and monitor on current insulin dosing. Qualifiers: Diabetes mellitus type: type 2 Diabetes mellitus jail insulin use: with jail use Diabetes mellitus complication status: with neurologic complications Diabetes mellitus complication detail: with polyneuropathy Qualified Code(s): E11.42 - Type 2 diabetes mellitus with diabetic polyneuropathy; Z79.4 - long term (current) use of insulin (6) Bradycardia: Status: Acute Assessment and plan: Metoprolol dose cut in half yesterday. Blood pressure is up slightly and pulse rate not much different. May go back to his prior beta-lia dose at time of discharge. (7) Discharge planning issues: Status: Acute Assessment and plan: Plan to return to [facility] tomorrow after adequate staff training with new respiratory unit. (8) Leg wound, left: Status: Chronic Assessment and plan: Left leg wound with no signs of infection. Continue topical treatment. Qualifiers: Encounter type: subsequent encounter Qualified Code(s): S81.802D - Unspecified open wound, left lower leg, subsequent encounter (9) Hypokalemia: Status: Acute Assessment and plan: Mild and has persisted. In the past he has had problems with hyperkalemia. Oral supplement and close monitoring of his potassium level. Subjective Subjective Interval history since last seen: States he feels fine. Did not tolerate the facemask for his BiPAP unit last night as well as the night before. Just did not feel as confident he says. Has not had any shortness of breath. No fever. Appetite good. Staff at the [facility] will be trained on the use of the triology respiratory unit. Plan is for discharge tomorrow once training completed. Exam Narrative Exam Narrative: Awake alert and in good spirits. Temperature 36.7 blood pressure 149/81 pulse in the 60s SaO2 on room air 94%. Lungs clear anterior and lateral lung barnard. Heart rhythm presently regular no S3 or S4 heard. Active bowel sounds. Ostomy is working fine in the right lower quadrant. No abdominal tenderness. Chronic increased skin thickness and mild erythema in both lower extremities with no tenderness. There is a superficial ulcer on the left negro chronic with clean granulation base and no erythema. Chronic deformities joints of his hands. Objective Objective Clinical Data: Abnormal lab results 06/15/19 Range/Units 06:32 Potassium 3.2 L (3.5-5.1) mmol/L Carbon Dioxide 36.4 H (21.0-32.0) mmol/L BUN 75 H (7-18) mg/dL Creatinine 1.66 H (0.70-1.30) mg/dL Glucose 182 H D (74-106) mg/dL Calcium 8.3 L (8.5-10.1) mg/dL Vital Signs Temperature 36.7 C 06/15/19 11:37 Temperature Source Temporal Artery Scan 06/15/19 11:37 Pulse 56 L 06/15/19 11:37 Pulse Rhythm Regular 06/15/19 05:06 Pulse 39 L 06/13/19 04:01 Respiratory Rate 12 06/15/19 13:35 Respiratory Effort Non-Labored 06/15/19 05:06 Respiratory Depth Normal 06/15/19 05:06 Respiratory Pattern Normal 06/15/19 05:06 Blood Pressure 149/81 H 06/15/19 11:37 Blood Pressure Mean 105 06/13/19 06:41 Blood Pressure Position Supine 06/13/19 00:05 Pulse Oximetry 94 L 06/15/19 11:37 Oxygen Delivery Method Room Air 06/15/19 11:37 Oxygen Flow Rate 0 06/15/19 11:37 Fraction of Inspired Oxygen (FIO2) 30 06/15/19 13:35 Pain Level 0 06/15/19 11:37 Comment 06/07/19 19:59 Intake & Output 06/14/19 06/15/19 06/15/19 23:59 11:59 23:59 Intake Total 240 / 490 480 / 720 240 / 720 Output Total 1125 / 3125 500 / 700 200 / 700 Balance -885 / -2635 - Weight 103.6 kg Intake: Oral 240 / 490 480 / 720 240 / 720 Output: Urine 875 / 2150 150 / 350 200 / 350 Stool 250 / 975 350 / 350 Other: Urine Color Yellow Yellow Yellow Urine Appearance Clear Clear Clear Urine Odor Normal Normal Normal Voiding Methods Urinal Urinal Laboratory Results WBC 5.31 k/cumm (4.4-10.8) D 06/14/19 06:35 RBC 4.64 m/cumm (4.50-6.00) 06/14/19 06:35 Hgb 10.1 g/dL (13.5-17.5) L 06/14/19 06:35 Hct 35.3 % (40.0-50.0) L 06/14/19 06:35 MCV 76.1 fL (80-95) L 06/14/19 06:35 MCH 21.8 pg (27.0-33.0) L 06/14/19 06:35 MCHC 28.6 g/dL (32.0-36.0) L 06/14/19 06:35 RDW 16.7 % (11.8-14.1) H 06/14/19 06:35 Plt Count 246 x1000/uL (130-400) 06/14/19 06:35 MPV 10.3 fL (8.0-11.0) 06/14/19 06:35 Immature Gran % 1.1 % 06/14/19 06:35 Neutrophils % 79.7 06/14/19 06:35 Lymphocytes % 7.7 06/14/19 06:35 Monocytes % 9.6 06/14/19 06:35 Eosinophils % 1.9 06/14/19 06:35 Basophils % 0.0 06/14/19 06:35 Absolute Neutrophils 4.23 k/cumm (1.2-6.7) 06/14/19 06:35 Absolute Lymphocytes 0.41 k/cumm (1.2-3.4) L 06/14/19 06:35 Absolute Monocytes 0.51 k/cumm (0.11-0.7) 06/14/19 06:35 Absolute Eosinophils 0.10 k/cumm (0.0-0.7) 06/14/19 06:35 Absolute Basophils 0.00 k/cumm (0.0-0.2) 06/14/19 06:35 Differential Comment Rbc morph reviewed 06/09/19 06:15 RBC Morphology See below 06/09/19 06:15 Polychromasia Present 06/07/19 15:50 Hypochromasia 2+ 06/09/19 06:15 Poikilocytosis 1+ 06/09/19 06:15 Basophilic Stippling 1+ 06/07/19 15:50 Anisocytosis 3+ 06/09/19 06:15 Microcytosis 2+ 06/09/19 06:15 Tear Drop Cells 2+ 06/07/19 15:50 Ovalocytes 3+ 06/09/19 06:15 Stomatocytes 3+ 06/07/19 15:50 PT 10.7 sec (9.3-11.0) 06/07/19 15:50 INR 1.1 (0.9-1.1) 06/07/19 15:50 APTT 23.4 sec (21.0-31.4) 06/07/19 15:50 ABG Sample Site Right radial 06/10/19 08:10 ABG pH 7.33 (7.35-7.45) L 06/10/19 08:10 ABG pCO2 65 mmHg (34-47) H* 06/10/19 08:10 ABG pO2 76 mmHg (83-108) L 06/10/19 08:10 ABG HCO3 35 mmol/L (22-28) H 06/10/19 08:10 ABG Total CO2 33 mmol/L (22-29) H 06/10/19 08:10 ABG O2 Saturation 95 % (94-98) 06/10/19 08:10 ABG Base Excess 8.6 mmol/L (-3-3) H 06/10/19 08:10 VBG pH 7.29 (7.35-7.45) L 06/11/19 16:00 VBG pCO2 69 mm/Hg (34-47) H* 06/11/19 16:00 VBG pO2 124 mm/Hg (28-44) H 06/11/19 16:00 VBG HCO3 33 mmol/L (22-28) H 06/11/19 16:00 VBG Total CO2 mmol/L (22-29) 06/11/19 16:00 VBG O2 Saturation > 99 % (70-80) H 06/11/19 16:00 VBG Base Excess 6.2 mmol/L (-3-3) H 06/11/19 16:00 Oxygen Liter Flow 1 L 06/10/19 08:10 FiO2 Remstar bipap 11/5 % 06/10/19 08:10 Sodium 144 mmol/L (136-145) 06/15/19 06:32 Potassium 3.2 mmol/L (3.5-5.1) L 06/15/19 06:32 Chloride 103 mmol/L (98-107) 06/15/19 06:32 Carbon Dioxide 36.4 mmol/L (21.0-32.0) H 06/15/19 06:32 Anion Gap 4.6 mmol/L (3-11) 06/15/19 06:32 BUN 75 mg/dL (7-18) H 06/15/19 06:32 Creatinine 1.66 mg/dL (0.70-1.30) H 06/15/19 06:32 Estimated GFR/1.73 m2 42.47 (mL/min/1.73m2) 06/15/19 06:32 Glucose 182 mg/dL (74-106) H D 06/15/19 06:32 Lactate 1.8 mmol/L (0.6-1.4) H 06/08/19 08:15 Calcium 8.3 mg/dL (8.5-10.1) L 06/15/19 06:32 Magnesium 2.0 mg/dL (1.8-2.4) 06/12/19 06:20 Ferritin 106 ng/mL (26-388) 06/07/19 15:50 Total Bilirubin 0.8 mg/dL (0.2-1.0) 06/07/19 15:50 AST 27 U/L (15-37) 06/07/19 15:50 ALT 18 U/L (16-63) 06/07/19 15:50 Alkaline Phosphatase 94 U/L (46-116) 06/07/19 15:50 Lactate Dehydrogenase 270 U/L (85-227) H 06/07/19 15:50 Troponin I < 0.05 ng/Ml (<0.06) 06/07/19 15:50 C-Reactive Protein 1.22 mg/dL (0.0-0.3) H 06/12/19 06:20 NT-Pro-B Natriuret Pep 3144 pg/mL (<300) H 06/07/19 15:50 Total Protein 7.1 g/dL (6.4-8.2) 06/07/19 15:50 Albumin 2.9 g/dL (3.4-5.0) L 06/07/19 15:50 Procalcitonin 1.0 ng/mL 06/10/19 06:25 Urine Color Yellow (Yellow) 06/07/19 16:15 Urine Clarity Cloudy (Clear) 06/07/19 16:15 Urine pH 6.0 (5-8) 06/07/19 16:15 Ur Specific [place] 1.015 (1.005-1.025) 06/07/19 16:15 Urine Protein 100 mg/dL (Negative) H 06/07/19 16:15 Urine Ketones Negative mg/dL (Negative) 06/07/19 16:15 Urine Blood Moderate (Negative) H 06/07/19 16:15 Urine Nitrite Positive (Negative) H 06/07/19 16:15 Urine Bilirubin Negative (Negative) 06/07/19 16:15 Urine Urobilinogen 0.2 EU/dL (Up TO 0.2) 06/07/19 16:15 Ur Leukocyte Esterase Large (Negative) H 06/07/19 16:15 Urine RBC HPF (0-2) 06/07/19 16:15 Urine WBC >50 HPF (0-5) H 06/07/19 16:15 Ur Epithelial Cells Negative HPF (Negative) 06/07/19 16:15 Urine Crystals Not Applicable 06/07/19 16:15 Urine Bacteria Packed HPF (Negative) 06/07/19 16:15 Urine Casts 10-20 coarsegranular LPF (Negative) 06/07/19 16:15 Urine Mucus Not Applicable 06/07/19 16:15 Urine Other Many renal (Negative) 06/07/19 16:15 Ur Culture Indicated? Yes 06/07/19 16:15 Urine Glucose Negative mg/dL (Negative) 06/07/19 16:15 Vancomycin Trough 21.1 ug/mL (10.0-20.0) H* 06/10/19 11:55 Coronavirus (PCR) Negative (Negative) 06/07/19 17:15
--- NOTE | 2019-06-15 15:10 | CHAPLAIN ---
Brendan was in bed, talking with PT staff when I visited. He he had opted out of PT for the day. He said he was suppose to return to the [facility] today or tomorrow, and today learned that it will be before the end of the week. Brendan was pleasant and talked about life at the [facility], his search for land to purchase and the cheeseburger he enjoyed for lunch.
--- NOTE | 2019-06-15 15:59 | PDOC.CMPRO ---
- If Service Date Differs Date of service: 06/15/19 Time of Service: 15:59 Care Management Progress Note S/O: Brendan was sitting up in bed when CM met with him. He reported that he didn't sleep very well, but that overall he is feeling better. He stated that he thought he would be going back to the [facility] today. CM discussed the discharge plan with Brendan, which is to have him return to the [facility] after they have acquired the [employer] machine and have trained their staff. CM received confirmation that the training and delivery of the machine will happen tomorrow at 6:30 am. CM called the [facility] to discuss discharge. Phyllis stated that they would be ready to accept Brendan tomorrow at 11 am. CM informed the provider of the discharge plan. CM also called to coordinate the [facility] wheelchair van, awaiting confirmation. CM will continue to follow. A: Brendan is a 59 year old male admitted to [facility] on 06/07/19 with Sepsis from UTI, Acute Adrenal Crisis and encephalopathy. P: Brendan will return to the [facility] when medically cleared, which is where he resides. He will be transported via [facility] w/c van, coordinated by KATELYN. CM will communicate with the [facility] regarding his disposition. CM will continue to follow.
[2019-06-15] MEDS: Potassium Chloride 10 MEQ TABCR PO (20:42)
[2019-06-15] MEDS: Melatonin 3 MG TAB 6 MG PO (20:56)
[2019-06-15] MEDS: risperiDONE 1 MG TAB 2 MG PO (20:56)
[2019-06-16 02:02] VITALS: RESP 12; RESP 14
[2019-06-16 03:57] VITALS: BP 171/81; PULSE 56; RESP 20; TEMP 37.3; O2SAT 100
[2019-06-16] MEDS: Levothyroxine 25 MCG TAB 12.5 MCG PO (05:42)
--- NOTE | 2019-06-16 06:56 | W.PM.DS.N ---
Date of service: 06/16/19 Time of Service: 06:57 DS: Diagnosis Discharge Diagnosis (1) Sepsis: Status: Resolved Asessment and Plan: Patient presented with lethargy, fever, abnormal urinalysis and abnormal chest x-ray compatible with either infectious etiology or interstitial edema. Blood and urine cultures were obtained and empirically started on broad-spectrum antibiotic coverage for healthcare associated pneumonia, urinary tract infection in the setting of known MRSA colonization. Blood cultures remained negative. Respiratory status improved with BiPAP support. Urine culture grew E. coli. Antibiotics were transitioned to ceftriaxone. He received a 7-day course of antibiotics with no recurrence of fever and no respiratory symptoms by the day of discharge. (2) UTI (urinary tract infection): Status: Resolved Asessment and Plan: Urine culture grew E. coli greater than 100,000 colonies per mL resistant to ampicillin, ampicillin/sulbactam, Cipro, Levaquin, tobramycin and Pipracil and tazobactam but sensitive to ceftriaxone which was the antibiotic use to complete treatment after initiating with Zosyn and vancomycin. He received 7 days of treatment. (3) HCAP (healthcare-associated pneumonia): Status: Resolved Asessment and Plan: Presumptive diagnosis, chest x-ray with equivocal findings compatible with either inflammation/infection or possible increased pulmonary edema. Healthcare associated pneumonia may not t be incorrect as a significant etiology for his presentation. Treated with antibiotics as noted above. (4) Acute respiratory failure with hypoxia and hypercarbia: Status: Resolved Asessment and Plan: Chronic problem with obstructive sleep apnea and hypoventilation. Had not been tolerant of CPAP unit used as an outpatient. Transition to BiPAP here and tolerated the mask adequately. He did not have further problems with lethargy or apparent CO2 narcosis with BiPAP support at nighttime. Arrangements made for a Trilogy BiPAP unit to be used as an outpatient. Discharge delayed 1 day to allow training of staff at the [facility] on the use of this unit. (5) MRSA colonization: Status: Chronic Asessment and Plan: Chronic colonization. No clear infection related to this. He was empirically placed on vancomycin for 3 days which was then discontinued. (6) Diabetes mellitus: Status: Chronic Asessment and Plan: Blood sugars spiked, not unsurprisingly, with the use of stress dose steroids initiated on presentation because of his history of chronic steroid use and iatrogenic adrenal insufficiency. Short acting insulin was adjusted to attempt to get better blood sugar control. He is being discharged on his previous outpatient insulin regimen and adjustments in the dosing can be made in the outpatient setting. (7) Bradycardia: Status: Chronic Asessment and Plan: Noted to have bradycardia but no clear symptoms related to this. Beta-lia dose was cut in half with no significant change on his heart rate but an increase in his blood pressure. Beta-lia dose returned to his outpatient dosing at the time of discharge. (8) Leg wound, left: Status: Chronic Asessment and Plan: Chronic superficial ulcer on his left negro with no signs of infection during this hospitalization. Topical wound care continues. (9) Hypokalemia: Status: Acute Asessment and Plan: Hypokalemia noted late in hospitalization. Treated with oral supplement. Potassium 3.5 on the morning of discharge and no further supplementation planned given past history of hyperkalemia. (10) Acute adrenal insufficiency: Status: Chronic Asessment and Plan: Placed on stress dose steroids initially then tapered back to his chronic prednisone dose several days prior to discharge. No problems clearly related to adrenal insufficiency during this hospitalization. (11) Hypertension: Status: Chronic Asessment and Plan: Blood pressure never hypotensive during this hospitalization. Initially in his hospitalization meds were tailored because of past history of adrenal insufficiency. Resumed on outpatient antihypertensive medications with having of his metoprolol because of bradycardia. Blood pressure continued to be somewhat elevated and on discharge returning to his outpatient dose of metoprolol. Further adjustment in antihypertensive regimen may need needed as an outpatient basis. Discharge Plan Disposition Patient Disposition: ICF (LEVEL 2) [facility] Condition: Fair Discharge Details Chief Complaint: AMS/LOC Clinical Impression: Respiratory failure, HCAP (healthcare-associated pneumonia) Reason For Visit: SEPSIS FROM UTI,?PNA,ACUTE ADRENAL CRISIS,ENCEPHAL Admit Date/Time: 06/07/19 19:00 Admit Provider: Chance Fragoso Attending Provider: Chance Fragoso Primary Care Provider: Lou Maldonado ED Provider: Hemanth Olivia Hospital Course Hospital Course: Chief Complaint: lethargy Narrative: 59 male with multiple problems, including COPD, CHF and hypoventilation. Sent for altered mental status. In ER findings of note for fever, obtundation, venous pCO2 97, white count 13.7 and CXR with bibasilar opacities (pneumonia vs atelectasis, as well as pyuria. Given Vanco, Zosyn, steroids and Duoneb with improvement in level of alertness and decrease pCO2 to 76. Flu and COVID swabs obtained, admitted for further management. Please see above diagnoses for hospital course by problem. In sum, treated with broad-spectrum antibiotics for possible pneumonia and more convincing evidence for UTI for a total of 7 days with initially broad-spectrum and then more tailored antibiotics. Supported with BiPAP 08/30 with 30% O2 bled in which improved his level of alertness. He had reasonable tolerance of the mask. [facility] use at the [facility]. Transient increase in steroids then return to his usual dose. Consequent increase in blood sugars with minor adjustments made to insulin during hospitalization. He is being discharged on all of his outpatient medications, unchanged in dosage. Home Meds and New Rx's Prescriptions: Continued cyanocobalamin (vitamin B-12) 1,000 mcg Tablet 1,000 mcg PO DAILY RF: 0 ferrous sulfate 325 mg (65 mg iron) Tablet 325 mg PO BID Qty: 0 RF: 0 ascorbic acid (vitamin C) [Vitamin C] 250 mg Tablet 1 tab PO BID RF: 0 Centrum Complete 18-400 mg-mcg Tablet 1 tab PO DAILY RF: 0 insulin aspart U-100 [Novolog Flexpen U-100 Insulin] 100 unit/mL Insulin Pen See Rx Instructions .ROUTE .COMPLEX Qty: 15 RF: 0 pantoprazole 40 mg Tablet,Delayed Release (Dr/Ec) 40 mg PO DAILY Qty: 60 RF: 0 melatonin 3 mg Tablet Extended Release 6 mg PO HS Qty: 30 RF: 0 calcium carbonate-vitamin D3 [Calcium 500 + D] 500 mg(1,250mg) -400 unit Tablet 1 tab PO BID RF: 0 acetaminophen [Tylenol] 325 mg tablet 1,000 mg PO TID RF: 0 gabapentin 100 mg capsule 300 mg PO TID RF: 0 risperidone [Risperdal] 2 mg tablet 2 mg PO HS RF: 0 vitamin B complex 100 2-herbs 100 mg Tablet 1 tab PO DAILY RF: 0 Enrique 7-7-1.5 gram Powder In Packet 1 packet PO BID RF: 0 Combivent Respimat 20-100 mcg/actuation Mist 1 puff INHALATION Q6H PRNRF: 0 acidophilus-pectin, citrus 25 million cell -100 mg tablet 1 cap PO DAILY RF: 0 insulin lispro [Humalog KwikPen Insulin] 100 unit/mL Insulin Pen 0 unit SUBCUT AC RF: 0 prednisone 5 mg Tablet 15 mg PO DAILY RF: 0 nystatin 100,000 unit/gram Powder 0 g topical BID Qty: 0 RF: 0 sodium bicarbonate 650 mg Tablet 650 mg PO BID Qty: 90 RF: 0 potassium bicarb-citric acid 20 mEq tablet, effervescent 20 meq PO DAILY Qty: 30 RF: 0 terazosin 2 mg Capsule 4 mg PO BID Qty: 0 RF: 0 magnesium chloride [Mag 64] 64 mg Tablet,Delayed Release (Dr/Ec) 64 mg PO BID Qty: 0 RF: 0 venlafaxine [Effexor XR] 37.5 mg Capsule,Extended Release 24hr 112.5 mg PO DAILY RF: 0 Zyrtec 10 mg Capsule 10 mg PO DAILY RF: 0 amlodipine 5 mg tablet 10 mg PO DAILY RF: 0 levothyroxine 25 mcg tablet 12.5 mcg PO HS RF: 0 Lantus Solostar U-100 Insulin 100 unit/mL (3 mL) insulin pen 40 - 55 unit subcut DIRECTED RF: 0 insulin aspart U-100 100 unit/mL (3 mL) insulin pen 10 unit SC AC Qty: 15 RF: 0 metoprolol tartrate 25 mg Tablet 25 mg PO BID RF: 0 clonidine HCl [Catapres] 0.1 mg tablet 0.1 mg PO TID Qty: 0 RF: 0 Eliquis 5 mg Tablet 2.5 mg PO BID Qty: 60 RF: 0 lorazepam [Ativan] 1 mg Tablet 1 mg PO Q8H PRNRF: 0 furosemide [Lasix] 40 mg tablet 80 - 100 mg PO BID RF: 0 CertaVite Senior-Antioxidant 0.4-300-250 mg-mcg-mcg Tablet 1 tab PO QAM RF: 0 Duoneb 3 ml inhalation PRN PRNRF: 0 Discharge Instructions Additional Instructions: Use the Trilogy BiPAP system every night with oxygen at 1 L/min Activity:: Activity as Tolerated Equipment/Supplies:: Trilogy Diet:: Carb Counting Discharge Orders Discharge Orders: Discharge Order (Routine); Ordered 06/16/19 Ordered By: Scar Gan DS: Summary Status at Discharge Functional status at discharge: bed bound Overall status at discharge: patient is back to baseline Mental Status: mental status grossly normal Speech and Movement: speech and movement normal Mood: congruent mood Affect: normal affect Time Spent with Patient providing and/or coordinating discharge services: Greater than 30 minutes Exam Narrative Exam Narrative: Initially sleeping, arousable and appropriate. Recent blood pressures ranging from 140-170 systolic, diastolics in the 70s pulse rate in the 50s. SaO2 when awake, 94% on room air. No facial asymmetry. Poor dentition. Cannot see neck veins because of skin folds. Lungs have diminished breath sounds at the bases clear in the upper lung barnard no crackles or wheeze heard. Mostly regular heart rhythm, but fairly frequent ectopic beats. No S3, low pitch 1/6 systolic ejection murmur right upper sternal border. Active bowel sounds with no abdominal tenderness. Colostomy functioning well in the right lower quadrant area. Chronic deformities of his hands and feet from arthritis with no acutely inflamed joints. Superficial ulcer left anterior negro with no surrounding erythema or discharge. He knows that he is going back to the [facility] today. Psych Mental Status: mental status grossly normal Speech and Movement: speech and movement normal Mood: congruent mood Affect: normal affect DS: Data Vitals/I&O Vitals and I&O: Vital Signs Temperature 37.3 C 06/16/19 03:57 Temperature Source Tympanic 06/16/19 03:57 Pulse 56 L 06/16/19 03:57 Pulse Rhythm Regular 06/16/19 03:20 Pulse 39 L 06/13/19 04:01 Respiratory Rate 20 06/16/19 03:57 Respiratory Effort 06/16/19 03:20 Respiratory Depth Normal 06/16/19 03:20 Respiratory Pattern Normal 06/16/19 03:20 Blood Pressure 171/81 H 06/16/19 03:57 Blood Pressure Mean 105 06/13/19 06:41 Blood Pressure Position Supine 06/13/19 00:05 Pulse Oximetry 100 06/16/19 03:57 Oxygen Delivery Method Nasal Cannula 06/16/19 03:57 Oxygen Flow Rate 2 06/16/19 03:57 Fraction of Inspired Oxygen (FIO2) 30 06/15/19 13:35 Pain Level 0 06/15/19 19:18 Comment 06/07/19 19:59 Intake & Output 06/15/19 06/15/19 06/16/19 11:59 23:59 11:59 Intake Total 480 / 1200 720 / 1200 Output Total 825 / 2355 1530 / 2355 1650 / 1650 Balance -345 / -1155 -810 / -1155 -1650 / -1650 Weight 103.6 kg Intake: Oral 480 / 1200 720 / 1200 Output: Urine 350 / 1880 1530 / 1880 1050 / 1050 Stool 475 / 475 600 / 600 Other: Urine Color Yellow Yellow Urine Appearance Clear Clear Clear Urine Odor Normal Normal Comment IN 5 VOIDS FROM 2349 TO 0220 Stool Occult Blood Negative Stool Size Moderate Stool Characteristics Soft Liquid Liquid Brown Voiding Methods Urinal Urinal Urinal Data Completed and Pending Labs on day of discharge: Labs from last 24 hours 06/16/19 06/15/19 06:27 06:32 Sodium Pending 144 Potassium Pending 3.2 L Chloride Pending 103 Carbon Dioxide Pending 36.4 H Anion Gap Pending 4.6 BUN Pending 75 H Creatinine Pending 1.66 H Estimated GFR/1.73 m2 Pending 42.47 Glucose Pending 182 H D Calcium Pending 8.3 L echocardiogram normal LV systolic function with moderate LVH, estimated LVEF 50 to 55%. Poor visualization of the right ventricle. No significant valvular disease. Comparison with echocardiogram from February 2019 estimated RV systolic pressure decreased from 51 to 42 mm. Renal ultrasound limited evaluation because of bladder decompression from Downing catheter, mild left renal cortical atrophy no evidence of obstruction. Moderate amount of abdominal pelvic ascites. Urine culture E. coli as noted above. Blood culture negative. Influenza nasal swab negative. On day of discharge BUN 66 creatinine 1.72. Bicarb 38.8, potassium 3.5 [facility] Medical History (Updated 06/16/19 @ 07:00 by Scar Gan MD) Acromegaly (Chronic) Acute on chronic kidney failure (Resolved) Adrenal insufficiency (Chronic) Ambulatory dysfunction (Chronic) Anemia (Chronic) Atrial flutter, paroxysmal (Chronic) Back pain (Chronic 06/21/13) CAD (coronary artery disease) (Chronic) Cardiopulmonary arrest with successful resuscitation (Resolved) Cholelithiasis (Chronic) Chronic anxiety (Chronic) Chronic bipolar disorder (Chronic) a. With history of psychosis. Chronic cholecystitis (Chronic) Chronic insomnia (Chronic) Chronic pain (Chronic) On both Methadone and Fentanyl as well as Ultram and Naproxen. CKD (chronic kidney disease) (Chronic) Complicated UTI (urinary tract infection) (Resolved) Diabetes mellitus (Chronic) Diabetic foot ulcer (Chronic) Diabetic ulcer of toe associated with diabetes mellitus due to underlying condition, with bone involvement without evidence of necrosis (Inactive) 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 (Resolved) Dyslipidemia (Chronic) Elevated troponin I level (Resolved) Endocarditis due to Staphylococcus (Resolved) Heme positive stool (Resolved) Hemorrhagic cystitis (Chronic) Hyperkalemia (Resolved) Hypertension (Chronic) Hypomagnesemia (Chronic) Hypothyroidism (Chronic) Impaired mobility and ADLs (Chronic) Inability to get out of bed (Chronic 06/21/13) Lactic acidosis (Resolved) MRSA bacteremia (Resolved) MRSA colonization (Chronic) Obesity (Chronic) a. Obesity though he has had significant weight loss since last seen. Osteoarthritis of both knees (Chronic) Severe. a. [id number] bilateral knees. 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 2 diabetes mellitus (Resolved) Palliative care encounter (Chronic) DObbertin Pedal edema (Chronic) Poor self care (Chronic 06/21/13) Poorly controlled type 2 diabetes mellitus with circulatory disorder (Chronic) Presence of IVC filter (Acute) Pulmonary hypertension (Chronic) Rheumatoid arthritis (Chronic) Sepsis (Resolved) Septic arthritis of elbow, right (Inactive) Toxic metabolic encephalopathy (Resolved) Toxic metabolic encephalopathy (Resolved) Ulcerative colitis (Chronic) UTI (urinary tract infection) (Resolved) UTI (urinary tract infection) due to Enterococcus (Resolved) Surgical History Arthroplasty of knee (Resolved 03/18/12) irrigation and lavage right Fracture, [place]Resolved[place] [place] DISTAL HUMERUS FRACTURE History of insertion of T-tube into biliary tract (Chronic) S/P colectomy (Chronic) Social History Smoking/Tobacco Use Status: Former Tobacco Use Alcohol Intake: former Drug use: Rarely Substance use type: marijuana Housing: halfway Do you feel safe at home: Yes Do you feel safe in your relationship?: Yes Additional [place] [facility] [place]
[2019-06-16 06:59] LABS: Anion Gap -0.8 mmol/L (3-11); BUN 66 mg/dL (7-18); CO2 38.8 mmol/L (21.0-32.0); CREATININE 1.72 mg/dL (0.70-1.30); Calcium 8.3 mg/dL (8.5-10.1); Chloride 104 mmol/L (98-107); Estimated GFR 40.76 (mL/min/1.73m2); Glucose 260 mg/dL (74-106); Potassium 3.5 mmol/L (3.5-5.1); Sodium 142 mmol/L (136-145)
--- NOTE | 2019-06-16 08:00 | OTDS_ITS ---
Date of service: 06/16/19 Time of Service: 08:00 Occupational Therapy Notes Occupational Therapy Inpatient Discharge Summary Date: 06/16/19 Dates of Service: 06/11/19-06/16/19 Referring Doctor:Priscila Canela MD OT Orders: Non-Urgent Precautions: Fall, Standard, Full PATIENT PROFILE/ADMITTING DIAGNOSIS: Pt is a 59 year old male who presented to the ER on 06/06 from [facility] with respiratory failure and HCAP. He was admitted from the ER to the ICU with the following dx; Sepsis, HCAP, UTI, A-Fib, JESUS, CKD, respiratory failure with hypoxia, toxic metabolic encephalopathy, DM, pulmonary HTN. Past Medical History: Medical History Acromegaly (Chronic) Acute on chronic kidney failure (Resolved) Adrenal insufficiency (Chronic) Ambulatory dysfunction (Chronic) Anemia (Chronic) Atrial flutter, paroxysmal (Chronic) Back pain (Chronic 06/21/13) CAD (coronary artery disease) (Chronic) Cardiopulmonary arrest with successful resuscitation (Resolved) Cholelithiasis (Chronic) Chronic anxiety (Chronic) Chronic bipolar disorder (Chronic) a. With history of psychosis. Chronic cholecystitis (Chronic) Chronic insomnia (Chronic) Chronic pain (Chronic) On both Methadone and Fentanyl as well as Ultram and Naproxen. CKD (chronic kidney disease) (Chronic) Complicated UTI (urinary tract infection) (Resolved) Diabetes mellitus (Chronic) Diabetic foot ulcer (Chronic) Diabetic ulcer of toe associated with diabetes mellitus due to underlying condition, with bone involvement without evidence of necrosis (Inactive) 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 (Resolved) Dyslipidemia (Chronic) Elevated troponin I level (Resolved) Endocarditis due to Staphylococcus (Resolved) Heme positive stool (Resolved) Hemorrhagic cystitis (Chronic) Hyperkalemia (Resolved) Hypertension (Chronic) Hypomagnesemia (Chronic) Hypothyroidism (Chronic) Impaired mobility and ADLs (Chronic) Inability to get out of bed (Chronic 06/21/13) Lactic acidosis (Resolved) MRSA bacteremia (Resolved) Obesity (Chronic) a. Obesity though he has had significant weight loss since last seen. Osteoarthritis of both knees (Chronic) Severe. a. Xalo-gf-[id number] bilateral knees. 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 2 diabetes mellitus (Resolved) Palliative care encounter (Chronic) DObbertin Pedal edema (Chronic) Poor self care (Chronic 06/21/13) Poorly controlled type 2 diabetes mellitus with circulatory disorder (Chronic) Presence of IVC filter (Acute) Pulmonary hypertension (Chronic) Rheumatoid arthritis (Chronic) Sepsis (Resolved) Septic arthritis of elbow, right (Inactive) Toxic metabolic encephalopathy (Resolved) Toxic metabolic encephalopathy (Resolved) Ulcerative colitis (Chronic) UTI (urinary tract infection) (Resolved) UTI (urinary tract infection) due to Enterococcus (Resolved) Surgical History Arthroplasty of knee (Resolved 03/18/12) irrigation and lavage right Fracture, Open Treatment (Resolved) 06[place]06[place] [place] ORIF RIGHT DISTAL HUMERUS FRACTURE History of insertion of T-tube into biliary tract (Chronic) S/P colectomy (Chronic) Current Functional Limitations: Decreased functional activity tolerance, decreased (I) in ADLs, decreased (B) UE ROM, increased pain in (R) UE decreasing gross and fine motor coordination during ADLs, difficulty breathing, increased fatigue. Social History/Home Situation: Pt resides at [facility]. Pt is well known to OT. He had surgery on his (R) UE to remove a metal plate in his (R) elbow last year, and is still recovering with AROM for his (R) although this seems to be improving. He notes that he is receiving PT/OT since last admission at the [facility] and notes that he requires (A) with bathing, dressing due to his weakness and decreased ROM. Pt states that bathing is performed by sponge bathing. Equipment owned/DME: [facility] which he uses for ambulation, he is a resident of SNF so all other DME are met through the facility. SUBJECTIVE: NT *This document serves as a summary of care, no skilled OT services provided for this documentation. OBJECTIVE: ROM- RUE Shoulder flexion ~65*, elbow flexion to 80*, decreased hand/digit ROM able to reach across body to opposite shoulder L UE Shoulder flexion ~70*, elbow flexion WFL with hard end feel for PROM able to reach across body to opposite shoulder STRENGTH- RUE shoulder flexion 2+/5, bicep 2/5, tricep 2/5, loom winder tender is weak and symmetrical LUE modified testing shoulder/elbow pt is 2/5 throughout loom winder tender is weak and symmetrical BALANCE: Static sitting Normal Dynamic Sitting Normal Static Standing Fair-Good Dynamic Standing Fair-Good as pts (L) LE hurts due to wound. BATHING: Lying in bed Able to (I) wash hand, face and with (L) UE he can wash (R) shoulder and slightly into pectoral region. He was max (A) for the rest of his bathing routines. DRESSING: Sitting in chair Upper Extremity: Mod (A) [facility] gown. EATING: Sitting in chair, max (A) opening containers, (I) food to mouth. OT recommends red foam for built up handles to compensate for lack of fine motor skills. ASSESSMENT: Patient is a 59-year-old male referred to occupational therapy services for Sepsis, HCAP, UTI, A-Fib, JESUS, CKD, respiratory failure with hypoxia, toxic metabolic encephalopathy, DM, pulmonary HTN. He was seen for 3 skilled OT sessions. He was receptive to OT care and was able to (A) with ADL/IADL routines. Functionally pt is demonstrating increased ROM of (R) UE and was able to (A) with his bathing. The plan is for pt to return back to [facility] in which he resides when medically cleared per MD. He is functioning back to a baseline level of function compared to admission. OT will formally discharge pt from skilled OT services at this time. GOALS Dressing- Pt will require min (A) for [facility] gown- Met Bathing- Pt will be able to demonstrate (I) in (B) UE bathing routines including but not limited to shoulders, forearms, hand and wrists with mod (A).- Met Grooming- In seated position pt will be able to brush his hair (I) with good technique.- progressing towards PLAN OF CARE/TREATMENT PLAN: Pt to be discharged to [facility] today. Discharge from skilled OT services at this time. DISCHARGE RECOMMENDATIONS Return to [facility] when medically cleared per MD. Eating Routine- OT recommends built up handles for utensils with red foam as pt has decreased gross and fine motor control of (B) UE and digits. TREATMENT TIME/MINUTES/CODES N/A Suzanne Javier, OTR/L [facility]
--- NOTE | 2019-06-16 08:00 | INDS_ITS ---
Date of service: 06/16/19 Time of Service: 08:00 PT Notes Visit Reasons: SEPSIS FROM UTI,?PNA,ACUTE ADRENAL CRISIS,ENCEPHAL Inpatient Physical Therapy Discharge Summary Dates: June 16, 2019 Dates of service: June 08- June 16, 2019 Referring Doctor: Priscila Canela PT Orders: PT CONSULT: Limited Ability Precautions: Contact. Fall. Activity as tolerated. Patient Profile/Admitting Diagnosis: Patient is a 59-year-old male who was admitted to the ED on 06/07/2019 with multiple problems, including sepsis from UTI, Afib, Acute respiratory failure with hyposia, and hypercapnia. PMHX: Acromegaly (Chronic) Acute on chronic kidney failure (Resolved) Adrenal insufficiency (Chronic) Ambulatory dysfunction (Chronic) Anemia (Chronic) Atrial flutter, paroxysmal (Chronic) Back pain (Chronic 06/21/13) CAD (coronary artery disease) (Chronic) Cardiopulmonary arrest with successful resuscitation (Resolved) Cholelithiasis (Chronic) Chronic anxiety (Chronic) Chronic bipolar disorder (Chronic) a. With history of psychosis. Chronic cholecystitis (Chronic) Chronic insomnia (Chronic) Chronic pain (Chronic) On both Methadone and Fentanyl as well as Ultram and Naproxen. CKD (chronic kidney disease) (Chronic) Complicated UTI (urinary tract infection) (Resolved) Diabetes mellitus (Chronic) Diabetic foot ulcer (Chronic) Diabetic ulcer of toe associated with diabetes mellitus due to underlying condition, with bone involvement without evidence of necrosis (Inactive) 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 (Resolved) Dyslipidemia (Chronic) Elevated troponin I level (Resolved) Endocarditis due to Staphylococcus (Resolved) Heme positive stool (Resolved) Hemorrhagic cystitis (Chronic) Hyperkalemia (Resolved) Hypertension (Chronic) Hypomagnesemia (Chronic) Hypothyroidism (Chronic) Impaired mobility and ADLs (Chronic) Inability to get out of bed (Chronic 06/21/13) Lactic acidosis (Resolved) MRSA bacteremia (Resolved) Obesity (Chronic) a. Obesity though he has had significant weight loss since last seen. Osteoarthritis of both knees (Chronic) Severe. a. [id number] bilateral knees. 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 2 diabetes mellitus (Resolved) Palliative care encounter (Chronic) DObbertin Pedal edema (Chronic) Poor self care (Chronic 06/21/13) Poorly controlled type 2 diabetes mellitus with circulatory disorder (Chronic) Presence of IVC filter (Acute) Pulmonary hypertension (Chronic) Rheumatoid arthritis (Chronic) Sepsis (Resolved) Septic arthritis of elbow, right (Inactive) Toxic metabolic encephalopathy (Resolved) Toxic metabolic encephalopathy (Resolved) Ulcerative colitis (Chronic) UTI (urinary tract infection) (Resolved) UTI (urinary tract infection) due to Enterococcus (Resolved) Surgical History Arthroplasty of knee (Resolved 03/18/12) irrigation and lavage right Fracture, Open Treatment (Resolved) 06/06/17-[facility] S/P ORIF RIGHT DISTAL HUMERUS FRACTURE History of insertion of T-tube into biliary tract (Chronic) S/P colectomy (Chronic) Social History/Home Situation: Long-term resident of the [facility]. Patient has had multiple acute care admissions in the past several years. Patient reports that he has not ambulated at the SNF prior to this admission. He notes that he is assisted into a wheelchair from his bed at the [facility]. Equipment Owned/DME: LTC resident Subjective: N/T This document serves as a summary of care. No skilled PT services provided for this documentation. Objective: General Observation:Sitting up on edge of bed at time of PT consult just finishing his lunch. Patient is agreeable and smiling throughout session. IV to RUE. Catheter. colostomy. O2 via nasal canula 1 liter/min, L LE soft boot for pressure relief Mental Status: A and O x3 Pain: Complained of pain on his back and his knees ROM: Right Upper Extremity: Shoulder flexion allows 45 degrees. Elbow motion allows 40 degrees to 90 degrees.He has partial opening and partial closing of the hand. AA shoulder flexion to 90 degrees, abduction 90 degrees, ER 20 degrees Left Upper Extremity: Shoulder flexion allows 70 degrees. Elbow motion WFL. He has partial opening and partial closing of the hand. AA shoulder flexion 130 degrees, scaption 120 degrees, IR to chest wall, ER 40 degrees Right Lower Extremity: Hip flexors allows less than 90 degrees. Right knee allows -20 degrees extension, 90 degrees flexion. Ankle dorsiflexion allows 0 degrees. Left Lower Extremity: Hip flexors less than 90 degrees. Left knee allows -10 degrees extension, 90 degrees flexion. Ankle dorsiflexion to 0 degrees. Strength: Right Upper Extremity: Shoulder flexors 3-/5. Shoulder abductors 3-/5. Elbow flexors 3-/5. Elbow extensors 3-/5. Left Upper Extremity: Shoulder flexors 3-/5. Shoulder abductors 3-/5. Elbow flexors 3-/5. Elbow extensors 3-/5. Right Lower Extremity: Hip flexors 3-/5. Hip abductors 3-/5. Knee flexors 3-/5. Knee extensors 2-/5. Ankle dorsiflexors 1/5. Ankle plantarflexors 1/5. Left Lower Extremity:Hip flexors 3-/5. Hip abductors 3-/5. Knee flexors 3-/5. Knee extensors 2-/5. Ankle dorsiflexors 1/5. Ankle plantarflexors 1/5. Bed Mobility/Transfers: Sit-Supine: Deven Sit-stand minAx2 Gait: FWW, FWB, MinAx2 bed to chair Balance: Static Sitting: Normal Dynamic Sitting: Normal Static Standing: Fair Dynamic Standing: Fair Assessment: Patient is a 59-year-old male who was admitted to the ED on 06/09/19 with sepsis, pneumonia, UTI, acute Afib, along with acute respiratory failure with hypoxia and hypercapnia. Referral to physical therapy was made in order to address mobility impairments, weakness, and impaired activity tolerance. Patient is back to baseline level of function. Patient currently demonstrates the following impairment level findings: 1. global weakness and loss of range of motion 2. Contractures of the right elbow, bilateral knees 3. Decreased activity tolerance 4. Back pain Impairments are contributing to the following functional limitations: 1. Limited ambulation tolerance 2. Decreased activity tolerance 3. Decreased independence with transfers Goals: Goals X1 week 1. Supine-Sit CGA (Not met) 2. Sit-Supine CGA (Not met) 3. Sit-Stand minimal assist (MET) 4. Stand-Sit minimal assist (MET) 5. Bed-Chair minimal assist (MET) 6. Chair-Bed minimal assist (MET) 7. Fair static and dynamic standing balance/tolerance (MET) Plan of Care/Treatment Plan: Patient to be discharged back to the [facility] today. Patient to be discharged from PT services at this time. DISCHARGE RECOMMENDATIONS: Return to SNF when medically cleared to do Thank you very much for this referral. Racquel Bermudez, MPT [facility] Inpatient PT at [facility]
[2019-06-16 08:08] VITALS: BP 174/77; PULSE 64; RESP 18; TEMP 36.8; O2SAT 100
[2019-06-16] MEDS: Insulin Aspart 300 UNITS/3 ML PEN 10 UNITS SC ×2 (08:18→11:02)
[2019-06-16] MEDS: Insulin Glargine 300 UNITS/3 ML PEN 40 UNITS SC (08:18)
[2019-06-16] MEDS: Insulin Aspart 300 UNITS/3 ML PEN SC ×2 (08:18→11:03)
[2019-06-16] MEDS: Potassium Chloride 10 MEQ TABCR PO (08:19)
[2019-06-16] MEDS: Terazosin 2 MG CAP 4 MG PO (08:19)
[2019-06-16] MEDS: amLODIPine 10 MG TAB PO (08:19)
[2019-06-16] MEDS: Furosemide 40 MG TAB 80 MG PO (08:19)
[2019-06-16] MEDS: Cyanocobalamin 500 MCG TAB 1000 MCG PO (08:19)
[2019-06-16] MEDS: predniSONE 10 MG, predniSONE 5 MG 15 MG PO (08:19)
[2019-06-16] MEDS: Metoprolol 25 MG TAB PO (08:19)
[2019-06-16] MEDS: Ascorbic Acid 500 MG TAB 250 MG PO (08:19)
[2019-06-16] MEDS: Cetirizine 10 MG TAB PO (08:20)
[2019-06-16] MEDS: Pantoprazole 40 MG TABCR PO (08:20)
[2019-06-16] MEDS: Gabapentin 300 MG CAP PO (08:20)
[2019-06-16] MEDS: Apixaban 2.5 MG TAB PO (08:20)
[2019-06-16] MEDS: cloNIDine 0.1 MG TAB PO (08:20)
[2019-06-16] MEDS: Ferrous Sulfate 325 MG TAB PO (09:21)
[2019-06-16] MEDS: Magnesium Chloride 64 MG TABCR PO (09:21)
[2019-06-16] MEDS: Acetaminophen 325 MG TAB PO (10:54)
[2019-06-16 11:01] VITALS: BP 155/75; PULSE 56; RESP 18; TEMP 36.8; O2SAT 98
--- NOTE | 2019-06-16 11:05 | W.PALPGNOTE ---
Date of service: 06/16/19 Time of Service: 11:05 Assessment and Plan Assessment and plan (1) Pulmonary hypertension: Status: Acute (2) Sepsis: Status: Resolved (3) CHF (congestive heart failure): Status: Chronic (4) Atrial fibrillation with rapid ventricular response: Status: Chronic (5) Acute respiratory failure with hypoxia and hypercarbia: Status: Resolved (6) Acute adrenal insufficiency: Status: Chronic (7) Diabetes mellitus: Status: Chronic Qualifiers: Diabetes mellitus type: type 2 Diabetes mellitus senior care insulin use: with floorwalker use Diabetes mellitus complication status: with neurologic complications Diabetes mellitus complication detail: with polyneuropathy Qualified Code(s): E11.42 - Type 2 diabetes mellitus with diabetic polyneuropathy; Z79.4 - penitentiary (current) use of insulin (8) Poor self care: Status: Chronic (9) Advanced care planning/counseling discussion: Status: Acute Assessment and plan: All and seems ready to return to the [facility]. He states he is looking forward to it. He is not using his trilogy machine as often as he should hence his elevation of CO2 and this morning labs. His grogginess also might show some CO2 retention. Hopefully his compliance is better once he returns to the [facility]. Diabetes his blood sugar still higher than what we would hope. He does not follow a diabetic diet. This is been difficult to control over the years. I did not address his CODE STATUS today I am happy to see all in at any time I have spent more than 50% of time in counseling with this patient. This document was created by [employer] software. Content was screened for misspellings, grammatical mistakes, etc. I apologize for any problems, but please contact me for further clarification if needed. Subjective Subjective Interval history since last seen: Lorena is lying in his bed. He was gently sleeping when I came in but easily woke up when I whispered his name. He has the new trilogy machine and does not feel like it is very comfortable. Per [facility] report he was not using it much at night because of the discomfort. He states that he was reprimanded in the morning, not a good way to start the day. Per care management he was looking forward to go back to the [facility]. He states that he has been at that hospital for 9 days and that is too much. He is feeling better he set up to eat his breakfast he no longer has a catheter. Exam Narrative Exam Narrative: He was groggier than I would have expected. When I reported this to nursing they were going to try him back on his trilogy machine to see if it had anything to do with CO2 retention. His heart was regular. He had much better airflow in his lungs. He did not have any edema. He does have covering over his left leg on the bottom calf. I did not open this up. He states that his is doing well. Objective Objective Clinical Data: Abnormal lab results 06/16/19 Range/Units 06:27 Carbon Dioxide 38.8 H (21.0-32.0) mmol/L Anion Gap -0.8 L (3-11) mmol/L BUN 66 H (7-18) mg/dL Creatinine 1.72 H (0.70-1.30) mg/dL Glucose 260 H (74-106) mg/dL Calcium 8.3 L (8.5-10.1) mg/dL Vital Signs Temperature 98.2 F 06/16/19 08:08 Temperature Source Temporal Artery Scan 06/16/19 08:08 Pulse 64 06/16/19 08:08 Pulse Rhythm Regular 06/16/19 08:26 Pulse 39 L 06/13/19 04:01 Respiratory Rate 18 06/16/19 08:08 Respiratory Effort 06/16/19 08:26 Respiratory Depth Normal 06/16/19 08:26 Respiratory Pattern Normal 06/16/19 08:26 Blood Pressure 174/77 H 06/16/19 08:08 Blood Pressure Mean 105 06/13/19 06:41 Blood Pressure Position Supine 06/13/19 00:05 Pulse Oximetry 100 06/16/19 08:08 Oxygen Delivery Method Nasal Cannula 06/16/19 08:08 Oxygen Flow Rate 1 06/16/19 08:08 Fraction of Inspired Oxygen (FIO2) 30 06/16/19 02:02 Pain Level 8 06/16/19 10:54 Comment 06/07/19 19:59 Intake & Output 06/15/19 06/15/19 06/16/19 11:59 23:59 11:59 Intake Total 480 / 1200 720 / 1200 Output Total 825 / 2355 1530 / 2355 2550 / 2550 Balance -345 / -1155 -810 / -1155 -2550 / -2550 Weight 228 lb 6.382 oz 222 lb 3.615 oz Intake: Oral 480 / 1200 720 / 1200 Output: Urine 350 / 1880 1530 / 1880 1750 / 1750 Stool 475 / 475 800 / 800 Other: Urine Color Yellow Yellow Yellow Urine Appearance Clear Clear Clear Urine Odor Normal Normal None Comment IN 5 VOIDS FROM 2349 TO 0220 Stool Occult Blood Negative Stool Size Moderate Stool Characteristics Soft Liquid Liquid Brown Voiding Methods Urinal Urinal Urinal Laboratory Results WBC 5.31 k/cumm (4.4-10.8) D 06/14/19 06:35 RBC 4.64 m/cumm (4.50-6.00) 06/14/19 06:35 Hgb 10.1 g/dL (13.5-17.5) L 06/14/19 06:35 Hct 35.3 % (40.0-50.0) L 06/14/19 06:35 MCV 76.1 fL (80-95) L 06/14/19 06:35 MCH 21.8 pg (27.0-33.0) L 06/14/19 06:35 MCHC 28.6 g/dL (32.0-36.0) L 06/14/19 06:35 RDW 16.7 % (11.8-14.1) H 06/14/19 06:35 Plt Count 246 x1000/uL (130-400) 06/14/19 06:35 MPV 10.3 fL (8.0-11.0) 06/14/19 06:35 Immature Gran % 1.1 % 06/14/19 06:35 Neutrophils % 79.7 06/14/19 06:35 Lymphocytes % 7.7 06/14/19 06:35 Monocytes % 9.6 06/14/19 06:35 Eosinophils % 1.9 06/14/19 06:35 Basophils % 0.0 06/14/19 06:35 Absolute Neutrophils 4.23 k/cumm (1.2-6.7) 06/14/19 06:35 Absolute Lymphocytes 0.41 k/cumm (1.2-3.4) L 06/14/19 06:35 Absolute Monocytes 0.51 k/cumm (0.11-0.7) 06/14/19 06:35 Absolute Eosinophils 0.10 k/cumm (0.0-0.7) 06/14/19 06:35 Absolute Basophils 0.00 k/cumm (0.0-0.2) 06/14/19 06:35 Differential Comment Rbc morph reviewed 06/09/19 06:15 RBC Morphology See below 06/09/19 06:15 Polychromasia Present 06/07/19 15:50 Hypochromasia 2+ 06/09/19 06:15 Poikilocytosis 1+ 06/09/19 06:15 Basophilic Stippling 1+ 06/07/19 15:50 Anisocytosis 3+ 06/09/19 06:15 Microcytosis 2+ 06/09/19 06:15 Tear Drop Cells 2+ 06/07/19 15:50 Ovalocytes 3+ 06/09/19 06:15 Stomatocytes 3+ 06/07/19 15:50 PT 10.7 sec (9.3-11.0) 06/07/19 15:50 INR 1.1 (0.9-1.1) 06/07/19 15:50 APTT 23.4 sec (21.0-31.4) 06/07/19 15:50 ABG Sample Site Right radial 06/10/19 08:10 ABG pH 7.33 (7.35-7.45) L 06/10/19 08:10 ABG pCO2 65 mmHg (34-47) H* 06/10/19 08:10 ABG pO2 76 mmHg (83-108) L 06/10/19 08:10 ABG HCO3 35 mmol/L (22-28) H 06/10/19 08:10 ABG Total CO2 33 mmol/L (22-29) H 06/10/19 08:10 ABG O2 Saturation 95 % (94-98) 06/10/19 08:10 ABG Base Excess 8.6 mmol/L (-3-3) H 06/10/19 08:10 VBG pH 7.29 (7.35-7.45) L 06/11/19 16:00 VBG pCO2 69 mm/Hg (34-47) H* 06/11/19 16:00 VBG pO2 124 mm/Hg (28-44) H 06/11/19 16:00 VBG HCO3 33 mmol/L (22-28) H 06/11/19 16:00 VBG Total CO2 mmol/L (22-29) 06/11/19 16:00 VBG O2 Saturation > 99 % (70-80) H 06/11/19 16:00 VBG Base Excess 6.2 mmol/L (-3-3) H 06/11/19 16:00 Oxygen Liter Flow 1 L 06/10/19 08:10 FiO2 Remstar bipap 11/5 % 06/10/19 08:10 Sodium 142 mmol/L (136-145) 06/16/19 06:27 Potassium 3.5 mmol/L (3.5-5.1) 06/16/19 06:27 Chloride 104 mmol/L (98-107) 06/16/19 06:27 Carbon Dioxide 38.8 mmol/L (21.0-32.0) H 06/16/19 06:27 Anion Gap -0.8 mmol/L (3-11) L 06/16/19 06:27 BUN 66 mg/dL (7-18) H 06/16/19 06:27 Creatinine 1.72 mg/dL (0.70-1.30) H 06/16/19 06:27 Estimated GFR/1.73 m2 40.76 (mL/min/1.73m2) 06/16/19 06:27 Glucose 260 mg/dL (74-106) H 06/16/19 06:27 Lactate 1.8 mmol/L (0.6-1.4) H 06/08/19 08:15 Calcium 8.3 mg/dL (8.5-10.1) L 06/16/19 06:27 Magnesium 2.0 mg/dL (1.8-2.4) 06/12/19 06:20 Ferritin 106 ng/mL (26-388) 06/07/19 15:50 Total Bilirubin 0.8 mg/dL (0.2-1.0) 06/07/19 15:50 AST 27 U/L (15-37) 06/07/19 15:50 ALT 18 U/L (16-63) 06/07/19 15:50 Alkaline Phosphatase 94 U/L (46-116) 06/07/19 15:50 Lactate Dehydrogenase 270 U/L (85-227) H 06/07/19 15:50 Troponin I < 0.05 ng/Ml (<0.06) 06/07/19 15:50 C-Reactive Protein 1.22 mg/dL (0.0-0.3) H 06/12/19 06:20 NT-Pro-B Natriuret Pep 3144 pg/mL (<300) H 06/07/19 15:50 Total Protein 7.1 g/dL (6.4-8.2) 06/07/19 15:50 Albumin 2.9 g/dL (3.4-5.0) L 06/07/19 15:50 Procalcitonin 1.0 ng/mL 06/10/19 06:25 Urine Color Yellow (Yellow) 06/07/19 16:15 Urine Clarity Cloudy (Clear) 06/07/19 16:15 Urine pH 6.0 (5-8) 06/07/19 16:15 Ur Specific [place] 1.015 (1.005-1.025) 06/07/19 16:15 Urine Protein 100 mg/dL (Negative) H 06/07/19 16:15 Urine Ketones Negative mg/dL (Negative) 06/07/19 16:15 Urine Blood Moderate (Negative) H 06/07/19 16:15 Urine Nitrite Positive (Negative) H 06/07/19 16:15 Urine Bilirubin Negative (Negative) 06/07/19 16:15 Urine Urobilinogen 0.2 EU/dL (Up TO 0.2) 06/07/19 16:15 Ur Leukocyte Esterase Large (Negative) H 06/07/19 16:15 Urine RBC HPF (0-2) 06/07/19 16:15 Urine WBC >50 HPF (0-5) H 06/07/19 16:15 Ur Epithelial Cells Negative HPF (Negative) 06/07/19 16:15 Urine Crystals Not Applicable 06/07/19 16:15 Urine Bacteria Packed HPF (Negative) 06/07/19 16:15 Urine Casts 10-20 coarsegranular LPF (Negative) 06/07/19 16:15 Urine Mucus Not Applicable 06/07/19 16:15 Urine Other Many renal (Negative) 06/07/19 16:15 Ur Culture Indicated? Yes 06/07/19 16:15 Urine Glucose Negative mg/dL (Negative) 06/07/19 16:15 Vancomycin Trough 21.1 ug/mL (10.0-20.0) H* 06/10/19 11:55 Coronavirus (PCR) Negative (Negative) 06/07/19 17:15
--- NOTE | 2019-06-16 14:05 | PDOC.CMDIS ---
- If Service Date Differs Date of service: 06/16/19 Time of Service: 14:05 LACE Index Scoring Tool - Questions: Length of Stay (in days): 7 - 13 Acuity (Admit via E.D.?): Yes Comorbidities: Diabetes w/o Complication, Congestive Heart Failure, Liver or Renal Disease E.D. Visits: 15 - Answers: Total Score: 17 Risk of Readmission: High Risk Care Management Discharge Reason for Hospitalization: Fever, Lethargy, resp insufficency Discharge Plan: Brendan will return to the [facility] where he resides now that he has been medically cleared. He will have a new Trilogy machine, coordinated by CM and RT, through [facility]. [facility] has assisted the [facility] with education and training of their staff to prepare for his arrival with the new machine. Palliative will continue to follow him at the [facility]. CM faxed the discharge summary. CM also faxed the packet to the [facility], as it was not transported with him, and mailed the hard copy to the [facility]. Brendan is happy to be returning to the [facility]. Patient/Family Education Needs: Review discharge instructions regarding activity levels, medications and breathing plan, discussion of self care and goals of care. Services Needed at Discharge: Chcf Facility ([facility]), Transportation ([facility] w/c [place])
== END 2019-06-16 12:28 | disposition intermediate care facility (04) | DRG 871 ==
LOC: ER 18:17 → RCU 06-08 03:54 → ICU 06-08 14:05 → RCU 06-10 10:20 → MS 06-14 12:13 → ICU 06-17 09:46 → RCU 06-17 09:46
PROVIDERS: Family Medicine; Internal Medicine; Nurse Practitioner Family; Admitting Provider General Practice; Emergency Provider Emergency Medicine; PCP Family Medicine; Visit Provider Internal Medicine
DX: A41.9 Sepsis, unspecified organism (principal); J18.9 Pneumonia, unspecified organism; J96.02 Acute respiratory failure with hypercapnia; J96.01 Acute respiratory failure with hypoxia; G92 Toxic encephalopathy; N39.0 Urinary tract infection, site not specified; Z16.11 Resistance to penicillins; Z16.23 Resistance to quinolones and fluoroquinolones; E27.3 Drug-induced adrenocortical insufficiency; L97.821 Non-pressure chronic ulcer of other part of left lower leg limited to breakdown of skin; N17.9 Acute kidney failure, unspecified; I13.0 Hypertensive heart and chronic kidney disease with heart failure and stage 1 through stage 4 chronic kidney disease, or unspecified chronic kidney disease; I50.22 Chronic systolic (congestive) heart failure; Y95 Nosocomial condition; B96.20 Unspecified Escherichia coli [E. coli] as the cause of diseases classified elsewhere; Z22.322 Carrier or suspected carrier of Methicillin resistant Staphylococcus aureus; I48.91 Unspecified atrial fibrillation; Z79.01 Long term (current) use of anticoagulants; G47.33 Obstructive sleep apnea (adult) (pediatric); G47.36 Sleep related hypoventilation in conditions classified elsewhere; R00.1 Bradycardia, unspecified; E11.22 Type 2 diabetes mellitus with diabetic chronic kidney disease; N18.9 Chronic kidney disease, unspecified; E11.65 Type 2 diabetes mellitus with hyperglycemia; T38.0X5A Adverse effect of glucocorticoids and synthetic analogues, initial encounter; E11.51 Type 2 diabetes mellitus with diabetic peripheral angiopathy without gangrene; I87.2 Venous insufficiency (chronic) (peripheral); E11.42 Type 2 diabetes mellitus with diabetic polyneuropathy; Z79.52 Long term (current) use of systemic steroids; Z79.4 Long term (current) use of insulin; E87.6 Hypokalemia; E03.9 Hypothyroidism, unspecified; E66.9 Obesity, unspecified; I27.22 Pulmonary hypertension due to left heart disease; I34.0 Nonrheumatic mitral (valve) insufficiency; Z91.19 Patient's noncompliance with other medical treatment and regimen; Z51.5 Encounter for palliative care; Z71.89 Other specified counseling; Z93.3 Colostomy status
CPT/HCPCS: 36415; 76770; 80048; 80053; 82805; 84145; 85027; 87040; 87077; 87449; 93005; 93306; 96365; 96367; 96375; 97110; 97162; 97166; 97530; 97535; 99222; 99232; 99233; 99239; 99255; 99285; 99291; U0003; 36600; 71045; 80202; 81003; 81015; 82728; 83605; 83615; 83735; 83880; 84484; 85025; 85610; 85730; 86140; 87086; 87186; 93010; 94660; J0131; J0696; J1940; J2543; J2930; J3370; J3490; J7512; J7620

== ENCOUNTER 2019-06-22 11:00 | Outpatient (REF) | payer MEDICARE, MEDICAID, SELFPAY ==
[2019-06-22 12:29] LABS: Anion Gap 5.4 mmol/L (3-11); BUN 71 mg/dL (7-18); CO2 34.6 mmol/L (21.0-32.0); CREATININE 1.96 mg/dL (0.70-1.30); Calcium 9.1 mg/dL (8.5-10.1); Chloride 102 mmol/L (98-107); Estimated GFR 35.06 (mL/min/1.73m2); Glucose 190 mg/dL (74-106); NT-proBNP 602 pg/mL (<300); Potassium 3.7 mmol/L (3.5-5.1); Sodium 142 mmol/L (136-145)
== END 2019-06-22 11:20 ==
LOC: NCHCN 11:00
PROVIDERS: PCP Family Medicine; Visit Provider Family Medicine
DX: I50.9 Heart failure, unspecified (principal)
CPT/HCPCS: 80048; 83880

== ENCOUNTER 2019-07-16 13:26 | Outpatient (REF) | payer MEDICARE, MEDICAID, SELFPAY ==
[2019-07-16 14:01] LABS: Anion Gap 6.3 mmol/L (3-11); BUN 67 mg/dL (7-18); CO2 32.7 mmol/L (21.0-32.0); Calcium 8.8 mg/dL (8.5-10.1); Chloride 99 mmol/L (98-107); Glucose 380 mg/dL (74-106); Potassium 3.7 mmol/L (3.5-5.1); Sodium 138 mmol/L (136-145)
== END 2019-07-16 13:46 ==
LOC: NCHCN 13:26
PROVIDERS: PCP Family Medicine; Visit Provider Family Medicine
DX: N18.9 Chronic kidney disease, unspecified (principal)
CPT/HCPCS: 80048

== ENCOUNTER 2019-07-23 12:48 | Outpatient (REF) | payer MEDICARE, MEDICAID, SELFPAY ==
[2019-07-23 15:33] LABS: Anion Gap 6.3 mmol/L (3-11); BUN 75 mg/dL (7-18); CO2 26.7 mmol/L (21.0-32.0); Calcium 8.6 mg/dL (8.5-10.1); Chloride 100 mmol/L (98-107); Estimated GFR 19.91 (mL/min/1.73m2); Glucose 479 mg/dL (74-106); Sodium 133 mmol/L (136-145)
== END 2019-07-23 13:08 ==
LOC: NCHCN 12:48
PROVIDERS: PCP Family Medicine; Visit Provider Family Medicine
DX: N18.9 Chronic kidney disease, unspecified (principal); I10 Essential (primary) hypertension; E11.9 Type 2 diabetes mellitus without complications
CPT/HCPCS: 80048

== ENCOUNTER 2019-07-23 18:50 | Emergency (ER) | payer MEDICARE, MEDICAID, SELFPAY ==
[2019-07-23 18:54] VITALS: BP 149/64; PULSE 68; RESP 30; TEMP 36.3; O2SAT 100
--- NOTE | 2019-07-23 19:05 | W.ED.GENAD ---
Discharge Plan Disposition Patient Disposition: [facility] (LEVEL 2) [facility] Condition: Stable Discharge Details Chief Complaint: GenMedical Clinical Impression: UTI (urinary tract infection), Creatinine elevation Primary Care Provider: Lou Maldonado ED Provider: Irena Gonzalez Home Meds and New Rx's Prescriptions: New cephalexin 500 mg tablet 500 mg PO BID 7 Days Qty: 14 RF: 0 Continued cyanocobalamin (vitamin B-12) 1,000 mcg Tablet 1,000 mcg PO DAILY RF: 0 ferrous sulfate 325 mg (65 mg iron) Tablet 325 mg PO BID Qty: 0 RF: 0 ascorbic acid (vitamin C) [Vitamin C] 250 mg Tablet 1 tab PO BID RF: 0 Centrum Complete 18-400 mg-mcg Tablet 1 tab PO DAILY RF: 0 pantoprazole 40 mg Tablet,Delayed Release (Dr/Ec) 40 mg PO DAILY Qty: 60 RF: 0 melatonin 3 mg Tablet Extended Release 6 mg PO HS Qty: 30 RF: 0 calcium carbonate-vitamin D3 [Calcium 500 + D] 500 mg(1,250mg) -400 unit Tablet 1 tab PO BID RF: 0 acetaminophen [Tylenol] 325 mg tablet See Rx Instructions .ROUTE .COMPLEX RF: 0 gabapentin 100 mg capsule 300 mg PO TID RF: 0 risperidone [Risperdal] 2 mg tablet 1.5 mg PO HS RF: 0 vitamin B complex 100 2-herbs 100 mg Tablet 1 tab PO DAILY RF: 0 Enrique 7-7-1.5 gram Powder In Packet 1 packet PO BID RF: 0 Combivent Respimat 20-100 mcg/actuation Mist 1 puff INHALATION Q6H PRNRF: 0 acidophilus-pectin, citrus 25 million cell -100 mg tablet 1 cap PO DAILY RF: 0 insulin lispro [Humalog KwikPen Insulin] 100 unit/mL Insulin Pen 0 unit SUBCUT AC RF: 0 prednisone 5 mg Tablet 13 mg PO DAILY RF: 0 nystatin 100,000 unit/gram Powder 0 g topical BID Qty: 0 RF: 0 sodium bicarbonate 650 mg Tablet 650 mg PO BID Qty: 90 RF: 0 potassium bicarb-citric acid 20 mEq tablet, effervescent 20 meq PO DAILY Qty: 30 RF: 0 terazosin 2 mg Capsule 4 mg PO BID Qty: 0 RF: 0 magnesium chloride [Mag 64] 64 mg Tablet,Delayed Release (Dr/Ec) 64 mg PO BID Qty: 0 RF: 0 venlafaxine [Effexor XR] 37.5 mg Capsule,Extended Release 24hr 112.5 mg PO DAILY RF: 0 Zyrtec 10 mg Capsule 10 mg PO DAILY RF: 0 amlodipine 5 mg tablet 10 mg PO DAILY RF: 0 levothyroxine 25 mcg tablet 12.5 mcg PO HS RF: 0 Lantus Solostar U-100 Insulin 100 unit/mL (3 mL) insulin pen 50 unit subcut DIRECTED RF: 0 insulin aspart U-100 100 unit/mL (3 mL) insulin pen 10 unit SC AC Qty: 15 RF: 0 metoprolol tartrate 25 mg Tablet 25 mg PO BID RF: 0 clonidine HCl [Catapres] 0.1 mg tablet 0.1 mg PO TID Qty: 0 RF: 0 Eliquis 5 mg Tablet 2.5 mg PO BID Qty: 60 RF: 0 lorazepam [Ativan] 1 mg Tablet 1 mg PO Q8H PRNRF: 0 furosemide [Lasix] 40 mg tablet 80 - 100 mg PO BID RF: 0 CertaVite Senior-Antioxidant 0.4-300-250 mg-mcg-mcg Tablet 1 tab PO QAM RF: 0 Duoneb 3 ml inhalation PRN PRNRF: 0 Discharge Instructions Instructions: Urinary Tract Infection in Men (ED) Referrals: Lou Maldonado [Primary Care Provider] - Medical Decision Making 59-year-old male with multiple medical problems presents to the ED via EMS from long-term care [facility] for elevated BUN and creatinine. Patient had blood work drawn today which noted a BUN of 75 and creatinine of 3.20 with a GFR of 45.44 his glucose is 479. It has been running in the 400s today. He did receive 20 units of insulin at 1630 prior to arrival. Patient has a history of CHF and respiratory failure which has required multiple admissions. He is currently on a diuretic and fluid restriction and sending provider Dr. Horowitz believes that he is dehydrated and request that we give him some IV fluids and recheck his BUN/creatinine. His only complaint upon arrival is gluteal pain, on exam he does have an old decub noted and some new skin breakdown to his coccyx with surrounding erythema. 2044: Patient's white blood cell count is 24,000, potassium is 6.0 which is up from 5.0 this afternoon. BGL is 520, sodium is 130. BUN and creatinine are actually somewhat improved after 500 cc fluid bolus. Will redraw a BMP to verify the potassium level and I will contact MD let her know of the results if they are not comfortable taking her back we will attempt to admit patient. Repeat BMP shows potassium of 5.8, BUN/creatinine are improved to 72 and 3.2. 2141: Spoke with Dr. Maldonado she recommends doing a pro-calcitonin and lactate, and chest x-ray. If these all look relatively within normal limits she agrees to accept patient back to the [facility] facility tonight. I will order his nightly dose of Lantus 50 units his blood sugar is 497. She reports that elevated WBC could be due to the fact of his chronic steroid. 2339: Spoke with Dr. Patt Linares regarding results of lactate, procalcitonin and chest x-ray she agrees that patient seems that he should be well enough to return to the [facility]. Discussed urine results, patient given cephalexin 500 mg p.o. in department prior to discharge. Prescription written for cephalexin 500 mg twice daily will leave IV line in place per Dr. Connre's request for possible addition of fluids. Patient remained hemodynamically stable throughout stay, he is alert and oriented on discharge. 97% room air, blood pressure 137/45. This text was generated using [employer] dictation system, please disregard any oddities of phrase or misspellings. Differential diagnosis includes but not limited to kidney insufficiency, acute kidney injury, UTI. HPI General Mode of arrival: EMS. Date/Time Provider Initiated Documentation: 07/23/19 18:52. Limitations to Documentation: physical limitation. Information obtained by: RN/MD (Dr. Corona), EMS and old records reviewed. HPI Narrative: 59-year-old male with multiple medical problems presents to the ED via EMS from long-term care facility the [facility] for elevated BUN and creatinine. Patient had blood work drawn today which noted a BUN of 75 and creatinine of 3.20 with a GFR of 45.44 his glucose is 479. It has been running in the 400s today. He did receive 20 units of insulin at 1630 prior to arrival. Patient has a history of CHF and respiratory failure which has required multiple admissions. He is currently on a diuretic and fluid restriction and sending provider Dr. Horowitz believes that he is dehydrated and request that we give him some IV fluids and recheck his BUN/creatinine. His only complaint upon arrival is gluteal pain, on exam he does have an old decub noted and some new skin breakdown to his coccyx with surrounding erythema. Related Data Home Medications Medication Instructions Recorded Confirmed cyanocobalamin (vitamin B-12) 1,000 mcg PO DAILY 12/23/17 07/23/19 ferrous sulfate 325 mg PO BID #0 tab 12/31/17 07/23/19 magnesium chloride [Mag 64] 64 mg PO BID #0 tab 02/10/18 07/23/19 terazosin 4 mg PO BID #0 cap 02/10/18 07/23/19 Centrum Complete 1 tab PO DAILY 03/01/18 06/02/19 ascorbic acid (vitamin C) [Vitamin 1 tab PO BID 03/01/18 07/23/19 C] melatonin 6 mg PO HS #30 tab 06/19/18 07/23/19 pantoprazole 40 mg PO DAILY #60 tab 06/19/18 07/23/19 calcium carbonate-vitamin D3 1 tab PO BID 07/09/18 07/23/19 [Calcium 500 + D] venlafaxine [Effexor XR] 112.5 mg PO DAILY 10/23/18 07/23/19 acetaminophen [Tylenol] See Rx Instructions .ROUTE .COMPLEX 01/08/19 07/23/19 gabapentin 300 mg PO TID 01/08/19 07/23/19 Zyrtec 10 mg PO DAILY 02/23/19 07/23/19 amlodipine 10 mg PO DAILY 02/26/19 07/23/19 levothyroxine 12.5 mcg PO HS 02/26/19 07/23/19 Lantus Solostar U-100 Insulin 50 unit SUBCUT DIRECTED 03/15/19 07/23/19 insulin aspart U-100 10 unit SC AC #15 ml 03/19/19 05/01/19 metoprolol tartrate 25 mg PO BID 05/01/19 07/23/19 Eliquis 2.5 mg PO BID #60 tab 05/20/19 07/23/19 clonidine HCl [Catapres] 0.1 mg PO TID #0 tab 05/20/19 07/23/19 Combivent Respimat 1 puff INHALATION Q6H PRN 06/02/19 06/07/19 Enrique 1 packet PO BID 06/02/19 06/07/19 acidophilus-pectin, citrus 1 cap PO DAILY 06/02/19 07/23/19 insulin lispro [Humalog KwikPen 0 unit SUBCUT AC 06/02/19 07/23/19 Insulin] prednisone 13 mg PO DAILY 06/02/19 07/23/19 risperidone [Risperdal] 1.5 mg PO HS 06/02/19 07/23/19 vitamin B complex 100 2-herbs 1 tab PO DAILY 06/02/19 06/07/19 nystatin 0 g TOPICAL BID #0 g 06/04/19 potassium bicarb-citric acid 20 meq PO DAILY #30 tab 06/04/19 07/23/19 sodium bicarbonate 650 mg PO BID #90 tab 06/04/19 07/23/19 CertaVite Senior-Antioxidant 1 tab PO QAM 06/07/19 07/23/19 Duoneb 3 ml INHALATION PRN PRN 06/07/19 furosemide [Lasix] 80 - 100 mg PO BID 06/07/19 07/23/19 lorazepam [Ativan] 1 mg PO Q8H PRN 06/07/19 06/07/19 cephalexin 500 mg PO BID 7 Days #14 tab 07/23/19 Previous Rx's Medication Instructions Recorded ferrous sulfate 325 mg PO BID #0 tab 12/31/17 magnesium chloride [Mag 64] 64 mg PO BID #0 tab 02/10/18 terazosin 4 mg PO BID #0 cap 02/10/18 melatonin 6 mg PO HS #30 tab 06/19/18 pantoprazole 40 mg PO DAILY #60 tab 06/19/18 insulin aspart U-100 10 unit SC AC #15 ml 03/19/19 Eliquis 2.5 mg PO BID #60 tab 05/20/19 clonidine HCl [Catapres] 0.1 mg PO TID #0 tab 05/20/19 nystatin 0 g TOPICAL BID #0 g 06/04/19 potassium bicarb-citric acid 20 meq PO DAILY #30 tab 06/04/19 sodium bicarbonate 650 mg PO BID #90 tab 06/04/19 cephalexin 500 mg PO BID 7 Days #14 tab 07/23/19 Allergies Allergy/AdvReac Type Severity Reaction Status Date / Time lisinopril Allergy Unverified 06/02/19 10:44 General Stated Complaint: GenMedical YVES: 3 Review of Systems Narrative: Constitutional: Negative for weight loss, alert and oriented, well groomed, normal body habitus, appears sickly has a history of toxic metabolic encephalopathy. HEENT: Denies trauma, headaches, blurry vision, nasal discharge, sore throat, trouble swallowing. Chest: Denies chest pain, palpitations, irregular rhythm, hypertension. Respiratory: Denies Shortness of breath, cough, hemoptysis. Does have a history of CHF and pulmonary hypertension, GI: Denies abdominal pain, nausea, vomiting, diarrhea, constipation. : Denies dysuria, hematuria, flank pain, rectal bleeding. Skin: Large area of erythema noted to his coccyx old deep decubitus noted, new surrounding small areas of breakdown. Neuro: Denies dizziness, blurry vision, weakness, syncope, headache or facial numbness. Hematologic: Denies easy bruising, intolerance to heat or cold, hair loss. All systems reviewed & are unremarkable except as noted in HPI and below PFSH Medical History Acromegaly (Chronic) Acute on chronic kidney failure (Resolved) Adrenal insufficiency (Chronic) Ambulatory dysfunction (Chronic) Anemia (Chronic) Atrial flutter, paroxysmal (Chronic) Back pain (Chronic 06/21/13) CAD (coronary artery disease) (Chronic) Cardiopulmonary arrest with successful resuscitation (Resolved) Cholelithiasis (Chronic) Chronic anxiety (Chronic) Chronic bipolar disorder (Chronic) a. With history of psychosis. Chronic cholecystitis (Chronic) Chronic insomnia (Chronic) Chronic pain (Chronic) On both Methadone and Fentanyl as well as Ultram and Naproxen. CKD (chronic kidney disease) (Chronic) Complicated UTI (urinary tract infection) (Resolved) Diabetes mellitus (Chronic) Diabetic foot ulcer (Chronic) Diabetic ulcer of toe associated with diabetes mellitus due to underlying condition, with bone involvement without evidence of necrosis (Inactive) 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 (Resolved) Dyslipidemia (Chronic) Elevated troponin I level (Resolved) Endocarditis due to Staphylococcus (Resolved) Heme positive stool (Resolved) Hemorrhagic cystitis (Chronic) Hyperkalemia (Resolved) Hypertension (Chronic) Hypomagnesemia (Chronic) Hypothyroidism (Chronic) Impaired mobility and ADLs (Chronic) Inability to get out of bed (Chronic 06/21/13) Lactic acidosis (Resolved) MRSA bacteremia (Resolved) MRSA colonization (Chronic) Obesity (Chronic) a. Obesity though he has had significant weight loss since last seen. Osteoarthritis of both knees (Chronic) Severe. a. [id number] bilateral knees. 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 2 diabetes mellitus (Resolved) Palliative care encounter (Chronic) DObbertin Pedal edema (Chronic) Poor self care (Chronic 06/21/13) Poorly controlled type 2 diabetes mellitus with circulatory disorder (Chronic) Presence of IVC filter (Acute) Pulmonary hypertension (Chronic) Rheumatoid arthritis (Chronic) Sepsis (Resolved) Septic arthritis of elbow, right (Inactive) Toxic metabolic encephalopathy (Resolved) Toxic metabolic encephalopathy (Resolved) Ulcerative colitis (Chronic) UTI (urinary tract infection) (Resolved) UTI (urinary tract infection) due to Enterococcus (Resolved) Surgical History Arthroplasty of knee (Resolved 03/18/12) irrigation and lavage right Fracture, Open Treatment (Resolved) [place] [place] DISTAL HUMERUS FRACTURE History of insertion of T-tube into biliary tract (Chronic) S/P colectomy (Chronic) Social History Smoking/Tobacco Use Status: Former Tobacco Use Alcohol Intake: former Drug use: Rarely Substance use type: marijuana Housing: senior living Do you feel safe at home: Yes Do you feel safe in your relationship?: Yes Additional Social history: Living at [facility] in [place] Exam Narrative Exam Narrative: Constitutional: Alert and oriented x3. Appears older than stated age. Normal body habitus. He does have multiple comorbidities. Head: Normocephalic, no trauma. Eyes: Pupils PERRLA, Red reflex noted, EOM's intact. Eyelids symmetrical without lesions, discharge, or swelling. ENT: Bilateral TM's WNL, External ear normal to inspection, no mastoid TTP, swelling, or erythema, Nasal turbinates WNL, no nasal discharge. Normal dentition, Posterior pharynx WNL, no exudate. Chest: RRR, Normal S1, S2, distal pulses intact. Resp: Lungs clear to auscultation bilaterally, no wheezes, rales, or rhonchi. Musculoskeletal: Decreased tone to upper and lower extremities, Skin: Does have a decubitus ulcer noted to his coccyx. Older deeper wound noted with surrounding smaller areas of breakdown with erythema. Neurologic: Cranial nerves II-XII intact. Alert and oriented x 3. . Hematologic/Lymphatic: No ecchymosis, no lymphadenopathy. Course Vital Signs Vital signs: Vital Signs Temperature 36.3 C L 07/23/19 18:54 Pulse 68 07/23/19 18:54 Respiratory Rate 30 H 07/23/19 18:54 Blood Pressure 149/64 H 07/23/19 18:54 Pulse Oximetry 100 07/23/19 18:54 Temperature 36.3 C L 07/23/19 18:54 Temperature Source Temporal Artery Scan 07/23/19 18:54 Pulse 68 07/23/19 18:54 Respiratory Rate 30 H 07/23/19 18:54 Respiratory Effort 07/23/19 18:57 Blood Pressure 149/64 H 07/23/19 18:54 Pulse Oximetry 100 07/23/19 18:54 Oxygen Delivery Method Room Air 07/23/19 18:54 Oxygen Flow Rate 0 07/23/19 18:54 Pain Level 6 07/23/19 18:54
[2019-07-23] MEDS: Normal Saline 1,000 ML 500 ML IV (19:10)
--- NOTE | 2019-07-23 19:52 | NUR.NOTE ---
emptied illeostomy, moderate soft stool
[2019-07-23 20:17] LABS: Absolute Eosinophil Count 0.12 k/cumm (0.0-0.7); Absolute Lymphocyte Count 0.94 k/cumm (1.2-3.4); Absolute Monocyte Count 1.26 k/cumm (0.11-0.7); Basophils % 0.1; Eosinophils % 0.5; HCT 33.3 % (40.0-50.0); HGB 9.9 g/dL (13.5-17.5); Lymphocytes % 3.8; Mean Corp. HGB Concentration 29.7 g/dL (32.0-36.0); Mean Corpuscular Hemoglobin 21.9 pg (27.0-33.0); Mean Corpuscular Volume 73.7 fL (80-95); Mean Platelet Volume 10.6 fL (8.0-11.0); Monocytes % 5.1; Neutrophils % 88.5; Platelet Count 343 x1000/uL (130-400); RBC 4.52 m/cumm (4.50-6.00)
[2019-07-23 20:28] LABS: Absolute Basophil Count 0.02 k/cumm (0.0-0.2); Absolute Neutrophil Count 21.84 k/cumm (1.2-6.7); White Blood Cell Count 24.68 k/cumm (4.4-10.8)
[2019-07-23 20:31] LABS: ALT 16 U/L (16-63); AST 27 U/L (15-37); Albumin 2.3 g/dL (3.4-5.0); Alkaline Phosphatase 120 U/L (46-116); Anion Gap 4.7 mmol/L (3-11); BUN 72 mg/dL (7-18); Bilirubin, Total 0.4 mg/dL (0.2-1.0); CO2 27.3 mmol/L (21.0-32.0); CREATININE 3.17 mg/dL (0.70-1.30); Calcium 8.9 mg/dL (8.5-10.1); Chloride 98 mmol/L (98-107); Estimated GFR 20.13 (mL/min/1.73m2); Sodium 130 mmol/L (136-145); Total Protein 6.9 g/dL (6.4-8.2)
[2019-07-23 20:34] LABS: Anisocytosis 2+; Diff Comment Diff Reviewed; Microcytosis 2+
--- NOTE | 2019-07-23 20:34 | NUR.NOTE ---
blood specs obtained and sent to lab
[2019-07-23 20:37] LABS: Glucose 520 mg/dL (74-106)
[2019-07-23 20:54] VITALS: BP 141/55; PULSE 67; RESP 22; O2SAT 93
--- NOTE | 2019-07-23 20:55 | NUR.NOTE ---
labs drawn L AC x one attempt and sent to lab
[2019-07-23] MEDS: Normal Saline 1,000 ML 100 ML IV (21:01)
[2019-07-23 21:06] LABS: Anion Gap 6.2 mmol/L (3-11); BUN 72 mg/dL (7-18); CO2 26.8 mmol/L (21.0-32.0); CREATININE 3.05 mg/dL (0.70-1.30); Calcium 8.9 mg/dL (8.5-10.1); Chloride 98 mmol/L (98-107); Estimated GFR 21.05 (mL/min/1.73m2); Glucose 497 mg/dL (74-106); Potassium 5.8 mmol/L (3.5-5.1); Sodium 131 mmol/L (136-145)
--- NOTE | 2019-07-23 21:30 | DI.RAD_ITS ---
EXAM: XR PORTABLE CHEST AP CLINICAL HISTORY: Leukocytosis TECHNIQUE: COMPARISON: CR,XR XR PORTABLE CHEST AP from 06/07/2019 FINDINGS: Single portable film obtained at 2218 hours. Heart may be mildly enlarged. Lungs are grossly clear and well expanded. No pleural effusion seen on this frontal film. IMPRESSION: No evidence of acute process.
[2019-07-23 22:13] LABS: Lactate 0.9 mmol/L (0.6-1.4)
[2019-07-23 22:26] LABS: Bilirubin Negative (Negative); Blood Moderate (Negative); Clarity Cloudy (Clear); Glucose 500 mg/dL (Negative); Ketones Negative (Negative); Leukocyte Esterase Large (Negative); Nitrite Negative (Negative); Specific Gravity 1.015 (1.005-1.025); Urobilinogen 0.2 EU/dL (Up TO 0.2); pH 5.5 (5-8)
[2019-07-23] MEDS: Insulin Glargine 100 UNITS/ML UNIT 50 UNITS SC (22:27)
[2019-07-23 22:30] VITALS: BP 152/57; PULSE 69; RESP 22; TEMP 36.5; O2SAT 95
--- NOTE | 2019-07-23 22:38 | NUR.NOTE ---
repositioned on R side, duoderm applied to coccyx ulcer
--- NOTE | 2019-07-23 22:49 | DI.VRAD_ITS ---
PROCEDURE INFORMATION: Exam: XR Chest, 1 View Exam date and time: 07/23/2019 10:19 PM Age: 59 years old Clinical indication: Other: Leukocytosis TECHNIQUE: Imaging protocol: XR of the chest Views: 1 view. COMPARISON: CR XR PORTABLE CHEST AP 06/07/2019 3:59 PM FINDINGS: Lungs: Unremarkable. No consolidation. Pleural space: Unremarkable. No pleural effusion. No pneumothorax. Heart/Mediastinum: Unremarkable. No cardiomegaly. Bones/joints: Unremarkable. IMPRESSION: No acute findings. Dictated and Authenticated by: Hemanth Hatfield MD. Ordering:NICOLE Osborn MD
[2019-07-23 23:18] LABS: Procalcitonin 1.2 ng/mL
[2019-07-23 23:24] LABS: Bacteria Many HPF (Negative); C & S Indicated? Yes; Casts Negative LPF (Negative); Crystals Negative HPF (Negative); Epithelial Cells Rare HPF (Negative); Mucus Moderate (Negative); Other Cells Negative (Negative); WBC >50 HPF (0-5)
[2019-07-23 23:35] VITALS: O2SAT 76
[2019-07-23] MEDS: Cephalexin 500 MG CAP PO (23:46)
[2019-07-23 23:54] VITALS: BP 150/69; PULSE 79; RESP 22; O2SAT 95
--- NOTE | 2019-07-23 23:59 | NUR.NOTE ---
Report given to Jodi, nurse at the [facility]
== END 2019-07-23 23:55 | disposition intermediate care facility (04) ==
PROVIDERS: Emergency Provider Registered Nurse Emergency; PCP Family Medicine
DX: N39.0 Urinary tract infection, site not specified (principal); B96.89 Other specified bacterial agents as the cause of diseases classified elsewhere; D72.829 Elevated white blood cell count, unspecified; T38.0X5A Adverse effect of glucocorticoids and synthetic analogues, initial encounter; L89.151 Pressure ulcer of sacral region, stage 1; E87.5 Hyperkalemia; E11.22 Type 2 diabetes mellitus with diabetic chronic kidney disease; Z79.4 Long term (current) use of insulin; I12.9 Hypertensive chronic kidney disease with stage 1 through stage 4 chronic kidney disease, or unspecified chronic kidney disease; N18.9 Chronic kidney disease, unspecified; Z87.440 Personal history of urinary (tract) infections
CPT/HCPCS: 36415; 80048; 80053; 84145; 96360; 96372; 99284; 71045; 81003; 81015; 83605; 85025; 87086; J1815

== ENCOUNTER 2019-07-24 11:46 | Outpatient (REF) | payer MEDICARE, MEDICAID, SELFPAY ==
[2019-07-24 11:55] LABS: HCT 34.3 % (40.0-50.0); HGB 10.2 g/dL (13.5-17.5); Mean Corp. HGB Concentration 29.7 g/dL (32.0-36.0); Mean Corpuscular Volume 73.9 fL (80-95); Mean Platelet Volume 10.9 fL (8.0-11.0); Platelet Count 327 x1000/uL (130-400); RBC 4.64 m/cumm (4.50-6.00); RBC Distribution Width 15.8 % (11.8-14.1)
[2019-07-24 12:02] LABS: Anion Gap 6.6 mmol/L (3-11); BUN 64 mg/dL (7-18); CO2 26.4 mmol/L (21.0-32.0); CREATININE 2.68 mg/dL (0.70-1.30); Chloride 99 mmol/L (98-107); Estimated GFR 24.44 (mL/min/1.73m2); Glucose 455 mg/dL (74-106); Potassium 5.4 mmol/L (3.5-5.1); Sodium 132 mmol/L (136-145)
[2019-07-25 10:08] LABS: Absolute Lymphocyte Count 0.55 k/cumm (1.2-3.4); Absolute Monocyte Count 1.38 k/cumm (0.11-0.7); Anisocytosis 1+; Basophilic Stippling Present; Diff Comment Manual Differential; Hypochromasia 3+; Microcytosis 3+; Ovalocytes 2+
[2019-07-25 10:09] LABS: Poikilocytes 2+
== END 2019-07-24 12:06 ==
LOC: NCHCN 11:46
PROVIDERS: PCP Family Medicine; Visit Provider Family Medicine
DX: D64.9 Anemia, unspecified (principal); N18.9 Chronic kidney disease, unspecified; E11.9 Type 2 diabetes mellitus without complications; F41.9 Anxiety disorder, unspecified
CPT/HCPCS: 80048; 85027; 85007

== ENCOUNTER 2019-07-24 17:17 | Inpatient (IN) | payer MEDICARE, MEDICAID, SELFPAY ==
[2019-07-24] VITALS (40 sets, daily range): BP systolic 125–165; BP diastolic 58–75; PULSE 63–75; RESP 13–35; TEMP 36.1–36.9; O2SAT 89–100
--- NOTE | 2019-07-24 17:33 | ED.GENADUL_ITS ---
Discharge Plan Disposition Patient Disposition: [facility]IENT Condition: Stable Discharge Details Chief Complaint: GenMedical Clinical Impression: Sacral decubitus ulcer, stage III, UTI (urinary tract infection), Hyperglycemia Admit Date/Time: 07/24/19 20:23 Admit Provider: Chance Fragoso Attending Provider: Chance Fragoso Primary Care Provider: Lou Maldonado ED Provider: Reny Trejo Discharge Data Discharge Date/Time-TO BE ENTERED AT DEPARTURE: 07/24/19 21:50 Medical Decision Making 59-year-old male well-known to the emergency department with multiple chronic medical problems including diabetes, coronary artery disease, chronic kidney disease, morbid obesity, poor self-care presents for hyperglycemia and le ukocytosis in setting of UTI and complaint of sacral pain. Patient appears in no acute distress. Afebrile. He has stage II-III ulcers noted on sacrum, tissue appears spongy and purplish in color, but doubt necrotizing fasciitis. Patient had chest x-ray done yesterday which was negative. Screening labs obtained and note the white blood cell count improved from 27 down to 24. Lactate 1. Glucose 650 w/ normal bicarb and anion gap. Creatinine slightly downtrending to 2.65. Potassium 5.7, similar to result yesterday. Urinalysis notes UTI. CT notes soft tissue swelling and fluid which could represent early abscess but no gas noted. Case discussed with surgery on-call who will add antibiotics and follow-up with patient tomorrow likely for sacral ulcer debridement. Discussed that this is likely not necrotizing fasciitis as this is unusual in the sacrum area. Case discussed with hospitalist who accepts patient for admission. Medical Records Medical records reviewed: Yes I reviewed the patient's medical records. Imaging Data Radiologic Study: Radiologist's impression: CT Abdomen And Pelvis Without Contrast Exam date and time: 07/24/2019 5:59 PM Age: 59 years old Clinical indication: Other: Sacrum stage 2 ulcer, assess extent of wound; Prior surgery TECHNIQUE: Imaging protocol: Computed tomography of the abdomen and pelvis without contrast. Radiation optimization: All CT scans at this facility use at least one of these dose optimization techniques: automated exposure control; mA and/or kV adjustment per patient size (includes targeted exams where dose is matched to clinical indication); or iterative reconstruction. COMPARISON: CT CHEST/ABD/PEL WO 05/01/2019 3:18 PM FINDINGS: Lungs: Lung bases are unremarkable. Liver: Unremarkable appearance of liver. Gallbladder and bile ducts: Multiple gallstones. No acute biliary tract findings. No biliary dilatation or choledocholithiasis. Pancreas: Pancreatic atrophy. No acute pancreatic changes. Spleen: Spleen is normal in appearance. Adrenals: Normal adrenal glands. Kidneys and ureters: No hydronephrosis or renal calculi. Stomach and bowel: Right lower quadrant enterostomy. No bowel dilatation. No obstructive features. Surgical clips in the region of the rectum consistent with a previous sigmoid bowel surgery. Appendix: No evidence of appendicitis. Intraperitoneal space: No free fluid in the abdomen or pelvis. Vasculature: Inferior vena cava contains a filter device. Lymph nodes: There is suggestion of bilateral hilar calcified lymph nodes consistent with an old granulomatous process. Some small calcified lymph nodes are seen in the region of the diaphragmatic hiatus as well. Bladder: Unremarkable as visualized. Reproductive: Unremarkable as visualized. Bones/joints: Bones of the pelvis are unremarkable. No osteolytic or destructive changes. There is degenerative lumbar spine disease. There appears to be severe degeneration at the L2-L3 disc space with what may be fusion. It is unclear whether this is surgical fusion or an degenerative/spontaneous fusion Soft tissues: Soft tissues of the posterior superficial sacral region have surgical clips. There is a nonspecific fluid collection measuring 4.9 x 2.9 cm. This may represent a seroma, hematoma, or early abscess. There is no gas in this collection. There is a secondary collection which appears to communicate with the above described collection. This secondary focus is more cephalad and on the left side measuring 5.9 x 2.4 cm. There is no gas in this collection. Nonspecific scrotal soft tissue/skin thickening. There is a proximal right thigh lipoma measuring 6.2 cm within the deep muscular compartment. IMPRESSION: 1. Gallstones. 2. Pancreatic atrophy. 3. Right lower quadrant enterostomy. No bowel dilatation. No bowel obstructive features. Surgical clips in the region of the rectum consistent with partial colectomy. 4. Sacral region soft tissue swelling and fluid which could represent early abscess formation. There is no gas currently seen within this collection. See above report for full details of collection size in location. 5. Nonspecific scrotal skin or soft tissue thickening. 6. Proximal right thigh 6.2 cm anterior deep compartment lipoma. This has benign appearance. 7. No osteolytic or destructive pelvic changes. Lab Data Lab results reviewed: Yes I reviewed the patient's lab results. Labs: 07/24/19 18:40 Urine - Reflex from Ua Urine Culture - Pending 07/24/19 18:24 Blood Blood Culture - Pending 07/24/19 18:10 Blood Blood Culture - Pending Laboratory Tests Range/Units 07/24/19 07/24/19 07/24/19 18:10 18:10 18:10 WBC (4.4-10.8) k/cumm 24.54 H RBC (4.50-6.00) m/cumm 4.44 L Hgb (13.5-17.5) g/dL 9.8 L Hct (40.0-50.0) % 32.7 L MCV (80-95) fL 73.6 L MCH (27.0-33.0) pg 22.1 L MCHC (32.0-36.0) g/dL 30.0 L RDW (11.8-14.1) % 15.8 H Plt Count (130-400) x1000/uL 338 MPV (8.0-11.0) fL 10.5 Immature Gran % See Differential Neutrophils % 92.0 Lymphocytes % 3.0 Monocytes % 4.0 Eosinophils % 0.0 Basophils % 0.0 Metamyelocytes % % 1.0 Absolute Neutrophils (1.2-6.7) k/cumm 22.58 H Absolute Lymphocytes (1.2-3.4) k/cumm 0.74 L Absolute Monocytes (0.11-0.7) k/cumm 0.98 H Absolute Eosinophils (0.0-0.7) k/cumm 0.00 Absolute Basophils (0.0-0.2) k/cumm 0.00 Differential Comment Manual differential RBC Morphology See below Hypochromasia 1+ Poikilocytosis 1+ Anisocytosis 1+ Microcytosis 2+ PT (9.3-11.0) sec INR (0.9-1.1) APTT (21.0-31.4) sec Sodium (136-145) mmol/L 128 L Potassium (3.5-5.1) mmol/L 5.7 H Chloride (98-107) mmol/L 96 L Carbon Dioxide (21.0-32.0) mmol/L 26.2 Anion Gap (3-11) mmol/L 5.8 BUN (7-18) mg/dL 65 H Creatinine (0.70-1.30) mg/dL 2.65 H Estimated GFR/1.73 m2 (mL/min/1.73m2) 24.75 Glucose (74-106) mg/dL 650 H* D Lactate (0.6-1.4) mmol/L 1.0 Calcium (8.5-10.1) mg/dL 8.8 Total Bilirubin (0.2-1.0) mg/dL 0.3 AST (15-37) U/L 10 L ALT (16-63) U/L 15 L Alkaline Phosphatase (46-116) U/L 127 H Total Protein (6.4-8.2) g/dL 6.9 Albumin (3.4-5.0) g/dL 2.4 L Urine Color (Yellow) Urine Clarity (Clear) Urine pH (5-8) Ur Specific [place] (1.005-1.025) Urine Protein (Negative) mg/dL Urine Ketones (Negative) mg/dL Urine Blood (Negative) Urine Nitrite (Negative) Urine Bilirubin (Negative) Urine Urobilinogen (Up TO 0.2) EU/dL Ur Leukocyte Esterase (Negative) Urine RBC Urine WBC (0-5) HPF Ur Epithelial Cells Urine Crystals Urine Bacteria (Negative) HPF Urine Mucus Ur Culture Indicated? Urine Glucose (Negative) mg/dL Range/Units 07/24/19 07/24/19 18:10 18:40 WBC (4.4-10.8) k/cumm RBC (4.50-6.00) m/cumm Hgb (13.5-17.5) g/dL Hct (40.0-50.0) % MCV (80-95) fL MCH (27.0-33.0) pg MCHC (32.0-36.0) g/dL RDW (11.8-14.1) % Plt Count (130-400) x1000/uL MPV (8.0-11.0) fL Immature Gran % Neutrophils % Lymphocytes % Monocytes % Eosinophils % Basophils % Metamyelocytes % % Absolute Neutrophils (1.2-6.7) k/cumm Absolute Lymphocytes (1.2-3.4) k/cumm Absolute Monocytes (0.11-0.7) k/cumm Absolute Eosinophils (0.0-0.7) k/cumm Absolute Basophils (0.0-0.2) k/cumm Differential Comment RBC Morphology Hypochromasia Poikilocytosis Anisocytosis Microcytosis PT (9.3-11.0) sec 10.8 INR (0.9-1.1) 1.1 APTT (21.0-31.4) sec 26.4 Sodium (136-145) mmol/L Potassium (3.5-5.1) mmol/L Chloride (98-107) mmol/L Carbon Dioxide (21.0-32.0) mmol/L Anion Gap (3-11) mmol/L BUN (7-18) mg/dL Creatinine (0.70-1.30) mg/dL Estimated GFR/1.73 m2 (mL/min/1.73m2) Glucose (74-106) mg/dL Lactate (0.6-1.4) mmol/L Calcium (8.5-10.1) mg/dL Total Bilirubin (0.2-1.0) mg/dL AST (15-37) U/L ALT (16-63) U/L Alkaline Phosphatase (46-116) U/L Total Protein (6.4-8.2) g/dL Albumin (3.4-5.0) g/dL Urine Color (Yellow) Yellow Urine Clarity (Clear) Cloudy Urine pH (5-8) 6.0 Ur Specific [place] (1.005-1.025) 1.010 Urine Protein (Negative) mg/dL 30 H Urine Ketones (Negative) mg/dL Negative Urine Blood (Negative) Moderate H Urine Nitrite (Negative) Positive H Urine Bilirubin (Negative) Negative Urine Urobilinogen (Up TO 0.2) EU/dL 0.2 Ur Leukocyte Esterase (Negative) Moderate H Urine RBC Not Applicable Urine WBC (0-5) HPF >50 H Ur Epithelial Cells Not Applicable Urine Crystals Not Applicable Urine Bacteria (Negative) HPF Urine Mucus Not Applicable Ur Culture Indicated? Yes Urine Glucose (Negative) mg/dL >=1000 H HPI General Mode of arrival: EMS . Date/Time Provider Initiated Documentation: 07/24/19 17:33 . Limitations to Documentation: no limitations . Information obtained by: patient . HPI Narrative: Patient is a 59-year-old male well-known to the emergency department with multiple chronic medical problems including anxiety, bipolar, coronary artery disease, diabetes, hypertension, hyperlipidemia, obesity who presents for evaluation from the [facility] for increasing white blood cell count on labs today and high blood sugar. Patient admits to sacral pain. He states he was able to eat breakfast. He denies any chest pain, shortness of breath, abdominal pain. He admits to some burning with urination. He was seen here yesterday and diagnosed with UTI and sent back to the [facility] with Keflex. He does not ambulate at baseline. Related Data Home Medications Medication Instructions Recorded Confirmed cyanocobalamin (vitamin B-12) 1,000 mcg PO DAILY 12/23/17 07/24/19 ferrous sulfate 325 mg PO BID #0 tab 12/31/17 07/24/19 magnesium chloride [Mag 64] 64 mg PO BID #0 tab 02/10/18 07/24/19 terazosin 4 mg PO BID #0 cap 02/10/18 07/24/19 Centrum Complete 1 tab PO DAILY 03/01/18 07/24/19 ascorbic acid (vitamin C) [Vitamin 1 tab PO BID 03/01/18 07/24/19 C] melatonin 6 mg PO HS #30 tab 06/19/18 07/24/19 pantoprazole 40 mg PO DAILY #60 tab 06/19/18 07/24/19 calcium carbonate-vitamin D3 1 tab PO BID 07/09/18 07/24/19 [Calcium 500 + D] venlafaxine [Effexor XR] 112.5 mg PO DAILY 10/23/18 07/24/19 acetaminophen [Tylenol] See Rx Instructions .ROUTE .COMPLEX 01/08/19 07/24/19 gabapentin 300 mg PO TID 01/08/19 07/24/19 Zyrtec 10 mg PO DAILY 02/23/19 07/24/19 amlodipine 10 mg PO DAILY 02/26/19 07/24/19 levothyroxine 12.5 mcg PO HS 02/26/19 07/24/19 Lantus Solostar U-100 Insulin 50 unit SUBCUT DIRECTED 03/15/19 07/24/19 insulin aspart U-100 10 unit SC AC #15 ml 03/19/19 07/24/19 metoprolol tartrate 25 mg PO BID 05/01/19 07/24/19 Eliquis 2.5 mg PO BID #60 tab 05/20/19 07/24/19 clonidine HCl [Catapres] 0.1 mg PO TID #0 tab 05/20/19 07/24/19 Combivent Respimat 1 puff INHALATION Q6H PRN 06/02/19 07/24/19 Enrique 1 packet PO BID 06/02/19 07/24/19 acidophilus-pectin, citrus 1 cap PO DAILY 06/02/19 07/24/19 insulin lispro [Humalog KwikPen 0 unit SUBCUT AC 06/02/19 07/24/19 Insulin] risperidone [Risperdal] 1.5 mg PO HS 06/02/19 07/24/19 vitamin B complex 100 2-herbs 1 tab PO DAILY 06/02/19 07/24/19 nystatin 0 g TOPICAL BID #0 g 06/04/19 07/24/19 potassium bicarb-citric acid 20 meq PO DAILY #30 tab 06/04/19 07/24/19 sodium bicarbonate 650 mg PO BID #90 tab 06/04/19 07/24/19 CertaVite Senior-Antioxidant 1 tab PO QAM 06/07/19 07/24/19 Duoneb 3 ml INHALATION PRN PRN 06/07/19 07/24/19 furosemide [Lasix] 80 - 100 mg PO BID 06/07/19 07/24/19 lorazepam [Ativan] 1 mg PO Q8H PRN 06/07/19 07/24/19 cephalexin 500 mg PO BID 7 Days #14 tab 07/23/19 07/24/19 prednisone See Rx Instructions .ROUTE .COMPLEX 07/24/19 07/25/19 Previous Rx's Medication Instructions Recorded ferrous sulfate 325 mg PO BID #0 tab 12/31/17 magnesium chloride [Mag 64] 64 mg PO BID #0 tab 02/10/18 terazosin 4 mg PO BID #0 cap 02/10/18 melatonin 6 mg PO HS #30 tab 06/19/18 pantoprazole 40 mg PO DAILY #60 tab 06/19/18 insulin aspart U-100 10 unit SC AC #15 ml 03/19/19 Eliquis 2.5 mg PO BID #60 tab 05/20/19 clonidine HCl [Catapres] 0.1 mg PO TID #0 tab 05/20/19 nystatin 0 g TOPICAL BID #0 g 06/04/19 potassium bicarb-citric acid 20 meq PO DAILY #30 tab 06/04/19 sodium bicarbonate 650 mg PO BID #90 tab 06/04/19 cephalexin 500 mg PO BID 7 Days #14 tab 07/23/19 Allergies Allergy/AdvReac Type Severity Reaction Status Date / Time lisinopril Allergy Unverified 07/24/19 17:47 General Stated Complaint: GenMedical YVES: 3 Review of Systems All systems reviewed & are unremarkable except as noted in HPI and below Constitutional Constitutional: Reports as per HPI, Denies chills and Denies fever(s) Eyes Eyes: Denies blurry vision ENT Ears, Nose, Mouth, and Throat: Denies dizziness, Denies sore throat and Denies throat swelling Cardiovascular Cardiovascular: Denies chest pain and Denies dyspnea Respiratory Respiratory: Denies cough and Denies dyspnea Gastrointestinal Gastrointestinal: Denies abdominal pain, Denies diarrhea and Denies vomiting Genitourinary Genitourinary: Denies hematuria and Denies dysuria Musculoskeletal Musculoskeletal: Denies back pain and Denies numbness Integumentary/Breasts Skin/Breast: Reports lesions and Denies rash Neurologic Neurologic: Denies dizziness, Denies localized weakness and Denies numbness Allergic/Immunologic Allergic/Immunologic: Denies throat swelling [facility] Medical History Acromegaly (Chronic) Acute on chronic kidney failure (Resolved) Adrenal insufficiency (Chronic) Ambulatory dysfunction (Chronic) Anemia (Chronic) Atrial flutter, paroxysmal (Chronic) Back pain (Chronic 06/21/13) CAD (coronary artery disease) (Chronic) Cardiopulmonary arrest with successful resuscitation (Resolved) Cholelithiasis (Chronic) Chronic anxiety (Chronic) Chronic bipolar disorder (Chronic) a. With history of psychosis. Chronic cholecystitis (Chronic) Chronic insomnia (Chronic) Chronic pain (Chronic) On both Methadone and Fentanyl as well as Ultram and Naproxen. CKD (chronic kidney disease) (Chronic) Complicated UTI (urinary tract infection) (Resolved) Diabetes mellitus (Chronic) Diabetic foot ulcer (Chronic) Diabetic ulcer of toe associated with diabetes mellitus due to underlying condition, with bone involvement without evidence of necrosis (Inactive) 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 (Resolved) Dyslipidemia (Chronic) Elevated troponin I level (Resolved) Endocarditis due to Staphylococcus (Resolved) Heme positive stool (Resolved) Hemorrhagic cystitis (Chronic) Hyperkalemia (Resolved) Hypertension (Chronic) Hypomagnesemia (Chronic) Hypothyroidism (Chronic) Impaired mobility and ADLs (Chronic) Inability to get out of bed (Chronic 06/21/13) Lactic acidosis (Resolved) MRSA bacteremia (Resolved) MRSA colonization (Chronic) Obesity (Chronic) a. Obesity though he has had significant weight loss since last seen. Osteoarthritis of both knees (Chronic) Severe. a. [id number] bilateral knees. 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 2 diabetes mellitus (Resolved) Palliative care encounter (Chronic) DObbertin Pedal edema (Chronic) Poor self care (Chronic 06/21/13) Poorly controlled type 2 diabetes mellitus with circulatory disorder (Chronic) Presence of IVC filter (Acute) Pulmonary hypertension (Chronic) Rheumatoid arthritis (Chronic) Sepsis (Resolved) Septic arthritis of elbow, right (Inactive) Toxic metabolic encephalopathy (Resolved) Toxic metabolic encephalopathy (Resolved) Ulcerative colitis (Chronic) UTI (urinary tract infection) (Resolved) UTI (urinary tract infection) due to Enterococcus (Resolved) Surgical History Arthroplasty of knee (Resolved 03/18/12) irrigation and lavage right Fracture, Open Treatment (Resolved) 06/06/17[place] [place] S/P ORIF RIGHT DISTAL HUMERUS FRACTURE History of insertion of T-tube into biliary tract (Chronic) S/P colectomy (Chronic) Social History Smoking/Tobacco Use Status: Former Tobacco Use Alcohol Intake: former Drug use: Rarely Substance use type: marijuana Housing: prison Do you feel safe at home: Yes Do you feel safe in your relationship?: Yes Additional Social history: Living at [facility] [place] Exam Const General: cooperative, no acute distress and ill appearing chronically Orientation: alert, awake and oriented x3 HENMT Head: normal to inspection Face and sinus: normal facial exam Eyes General: appearance normal, both eyes and all related structures EOM: EOM intact bilaterally Neck Neck: normal visual inspection and No submandibular swelling Lymphatic: no lymphadenopathy noted Chest Chest: normal inspection of the chest and no tenderness Resp Effort & Inspection: normal respiratory effort and able to speak in complete sentences Auscultation: clear to auscultation bilaterally Cardio Rate: regular rate Rhythm: regular rhythm GI Inspection: normal to inspection Palpation: soft, not firm, not rigid and nontender Auscultation: normal bowel sounds Scrotum: erythematous bilaterally (Consistent likely with pressure ulcer, stage I) Back/Spine/Pelvis Back/spine/pelvis image: 1. Spongy erythema and edema, some purplish discoloration. Stage II-III ulcerations noted scattered throughout wound. Skin General skin exam: no rashes or lesions noted Neuro General: patient alert, patient awake and patient oriented x3 Cognition: normal cognition Speech: speech normal Motor: muscle tone normal throughout Sensory Exam: no sensory deficits noted Extrem General: full ROM and edema Laterality: bilateral (< 1+) Psych Appearance: grossly normal Mental Status: mental status grossly normal Speech and Movement: speech and movement normal Affect: normal affect Course Vital Signs Vital signs: Vital Signs Temperature 98.4 F 07/24/19 17:19 Pulse 68 07/24/19 17:19 Respiratory Rate 14 07/24/19 17:19 Blood Pressure 143/60 H 07/24/19 17:19 Pulse Oximetry 95 07/24/19 17:19 Temperature 98.4 F 07/24/19 17:19 Temperature Source Temporal Artery Scan 07/24/19 17:19 Pulse 68 07/24/19 17:19 Respiratory Rate 14 07/24/19 17:19 Respiratory Effort 07/24/19 17:23 Blood Pressure 143/60 H 07/24/19 17:19 Blood Pressure Position Supine 07/24/19 17:19 Pulse Oximetry 95 07/24/19 17:19 Oxygen Delivery Method Room Air 07/24/19 17:19 Oxygen Flow Rate 0 07/24/19 17:19 Pain Level 7 07/24/19 17:19 Comment 07/24/19 17:19
[2019-07-24 18:18] LABS: HCT 32.7 % (40.0-50.0); HGB 9.8 g/dL (13.5-17.5); Mean Corpuscular Hemoglobin 22.1 pg (27.0-33.0); Mean Corpuscular Volume 73.6 fL (80-95); Mean Platelet Volume 10.5 fL (8.0-11.0); Platelet Count 338 x1000/uL (130-400); RBC 4.44 m/cumm (4.50-6.00); RBC Distribution Width 15.8 % (11.8-14.1); White Blood Cell Count 24.54 k/cumm (4.4-10.8)
[2019-07-24] MEDS: Normal Saline 500 ML IV (18:26)
[2019-07-24 18:29] LABS: ALT 15 U/L (16-63); AST 10 U/L (15-37); Albumin 2.4 g/dL (3.4-5.0); Alkaline Phosphatase 127 U/L (46-116); Anion Gap 5.8 mmol/L (3-11); BUN 65 mg/dL (7-18); Bilirubin, Total 0.3 mg/dL (0.2-1.0); CO2 26.2 mmol/L (21.0-32.0); CREATININE 2.65 mg/dL (0.70-1.30); Calcium 8.8 mg/dL (8.5-10.1); Chloride 96 mmol/L (98-107); Estimated GFR 24.75 (mL/min/1.73m2); INR 1.1 (0.9-1.1); PTT Activated 26.4 sec (21.0-31.4); Potassium 5.7 mmol/L (3.5-5.1); Prothrombin Time 10.8 sec (9.3-11.0); Sodium 128 mmol/L (136-145); Total Protein 6.9 g/dL (6.4-8.2)
[2019-07-24 18:30] LABS: Glucose 650 mg/dL (74-106)
[2019-07-24 18:40] LABS: Absolute Lymphocyte Count 0.74 k/cumm (1.2-3.4); Absolute Monocyte Count 0.98 k/cumm (0.11-0.7); Absolute Neutrophil Count 22.58 k/cumm (1.2-6.7); Anisocytosis 1+; Diff Comment Manual Differential
[2019-07-24 18:41] LABS: Hypochromasia 1+; Microcytosis 2+; Poikilocytes 1+
--- NOTE | 2019-07-24 18:44 | DI.CT_ITS ---
EXAM: CT PELVIC WO CLINICAL HISTORY: sacrum stage 2 ulcer, assess extent of wound TECHNIQUE: COMPARISON: CT CT CHEST/ABD/PEL WO from 05/01/2019 FINDINGS: CT examination was performed without contrast administration. Visualized lung bases are clear. Card iac size within limits. Liver and spleen are grossly unremarkable as is the pancreas. Cholelithiasis noted. There appears to be a small quantity of pericholecystic fluid, please correlate clinically regarding any possibility of cholecystitis. No biliary dilatation. IVC filter noted in place. Abdominal aorta is of normal diameter. Right lower quadrant enterostomy noted. No significant abdominal wall hernia. No evidence of bowel obstruction. Adrenals and kidneys grossly unremarkable by noncontrast criteria, possible mild left renal cortical atrophy. Patient reportedly has a sacral ulceration. There is intermediate soft tissue attenuation of the sof t tissues overlying the sacrum. There is a suspected fluid collection associated with vascular clips which lies just inferior to the coccyx and which measures roughly 5 x 3 cm in diameter transaxial im ages. No gross bony destruction identified involving the sacrum coccyx. No convincing intrapelvic a bscess or adenopathy. IMPRESSION: Findings suggesting infra coccygeal soft tissue abscess in the subcutaneous fat, approximately 5 x 3 cm in diameter. Diffuse inflammation of retro sacral and buttock region particularly on the left. No intra pelvic fluid collection or adenopathy.
[2019-07-24 19:01] LABS: Bilirubin Negative (Negative); Blood Moderate (Negative); Clarity Cloudy (Clear); Glucose >=1000 mg/dL (Negative); Ketones Negative (Negative); Leukocyte Esterase Moderate (Negative); Nitrite Positive (Negative); Urobilinogen 0.2 EU/dL (Up TO 0.2)
[2019-07-24] MEDS: Insulin REGULAR-Human 100 UNITS/ML UNIT 8 UNITS IV (19:07)
[2019-07-24 19:08] LABS: WBC >50 HPF (0-5)
[2019-07-24 19:09] LABS: C & S Indicated? Yes
--- NOTE | 2019-07-24 19:45 | DI.VRAD_ITS ---
PROCEDURE INFORMATION: Exam: CT Abdomen And Pelvis Without Contrast Exam date and time: 07/24/2019 5:59 PM Age: 59 years old Clinical indication: Other: Sacrum stage 2 ulcer, assess extent of wound; Prior surgery TECHNIQUE: Imaging protocol: Computed tomography of the abdomen and pelvis without contrast. Radiation optimization: All CT scans at this facility use at least one of these dose optimization techniques: automated exposure control; mA and/or kV adjustment per patient size (includes targeted exams where dose is matched to clinical indication); or iterative reconstruction. COMPARISON: CT CHEST/ABD/PEL WO 05/01/2019 3:18 PM FINDINGS: Lungs: Lung bases are unremarkable. Liver: Unremarkable appearance of liver. Gallbladder and bile ducts: Multiple gallstones. No acute biliary tract findings. No biliary dilatation or choledocholithiasis. Pancreas: Pancreatic atrophy. No acute pancreatic changes. Spleen: Spleen is normal in appearance. Adrenals: Normal adrenal glands. Kidneys and ureters: No hydronephrosis or renal calculi. Stomach and bowel: Right lower quadrant enterostomy. No bowel dilatation. No obstructive features. Surgical clips in the region of the rectum consistent with a previous sigmoid bowel surgery. Appendix: No evidence of appendicitis. Intraperitoneal space: No free fluid in the abdomen or pelvis. Vasculature: Inferior vena cava contains a filter device. Lymph nodes: There is suggestion of bilateral hilar calcified lymph nodes consistent with an old granulomatous process. Some small calcified lymph nodes are seen in the region of the diaphragmatic hiatus as well. Bladder: Unremarkable as visualized. Reproductive: Unremarkable as visualized. Bones/joints: Bones of the pelvis are unremarkable. No osteolytic or destructive changes. There is degenerative lumbar spine disease. There appears to be severe degeneration at the L2-L3 disc space with what may be fusion. It is unclear whether this is surgical fusion or an degenerative/spontaneous fusion Soft tissues: Soft tissues of the posterior superficial sacral region have surgical clips. There is a nonspecific fluid collection measuring 4.9 x 2.9 cm. This may represent a seroma, hematoma, or early abscess. There is no gas in this collection. There is a secondary collection which appears to communicate with the above described collection. This secondary focus is more cephalad and on the left side measuring 5.9 x 2.4 cm. There is no gas in this collection. Nonspecific scrotal soft tissue/skin thickening. There is a proximal right thigh lipoma measuring 6.2 cm within the deep muscular compartment. IMPRESSION: 1. Gallstones. 2. Pancreatic atrophy. 3. Right lower quadrant enterostomy. No bowel dilatation. No bowel obstructive features. Surgical clips in the region of the rectum consistent with partial colectomy. 4. Sacral region soft tissue swelling and fluid which could represent early abscess formation. There is no gas currently seen within this collection. See above report for full details of collection size in location. 5. Nonspecific scrotal skin or soft tissue thickening. 6. Proximal right thigh 6.2 cm anterior deep compartment lipoma. This has benign appearance. 7. No osteolytic or destructive pelvic changes. Dictated and Authenticated by: Zach Bautista MD. Ordering:JORGE Oglesby MD
[2019-07-24] MEDS: cefTRIAXone 1 GM VIAL IV (19:48)
--- NOTE | 2019-07-24 20:15 | W.PM.HP.N ---
Date of service: 07/24/19 Time of Service: 20:15 Assessment and Plan Assessment and plan (1) Pressure ulcer, sacrum: Start date: 07/24/19 Status: Acute Assessment and plan: This is a 59-year-old gentleman who chronically is nonambulatory at the [facility] the last 20 years. He has frequent admissions for complications of uncontrolled diabetes and nonambulatory state. He presented today with worsening hyperglycemia and sacral pain with an ulceration over his sacrum which is worsening appearing to possibly have an abscess and needing debridement. Surgery was consulted and will see him in the morning for possible debridement. He was given Rocephin by the ED physician and the surgeon did add vancomycin which will be dosed by pharmacy. Cultures were obtained. He is a full code but prognosis is poor with multisystem failure, poor compliance with medical care and progressive deterioration. He feels that it should be reevaluated. Qualifiers: Pressure injury stage: stage 1 Qualified Code(s): L89.151 - Pressure ulcer of sacral region, stage 1 (2) UTI (urinary tract infection): Start date: 07/24/19 Status: Acute Assessment and plan: Cultures were done and Rocephin will be continued. IV hydration with the patient having CKD slightly worsened and potassium slightly elevated. Follow-up lab in the morning. Qualifiers: Hematuria presence: without hematuria Urinary tract infection type: site unspecified Qualified Code(s): N39.0 - Urinary tract infection, site not specified (3) Acute kidney injury superimposed on chronic kidney disease: Start date: 07/24/19 Status: Acute Assessment and plan: IV hydration with follow-up lab in the morning. Patient does have chronic CKD by review and is not far from baseline though he appears slightly dry clinically today. (4) Acute adrenal insufficiency: Status: Chronic Assessment and plan: Patient has a history of adrenal insufficiency will be given stress steroids IV during his hospital stay. (5) Poorly controlled type 2 diabetes mellitus with circulatory disorder: Status: Chronic Assessment and plan: Glucometers before meals and at bedtime with short acting insulin coverage for meals and bedtime with a higher dose and the patient's Lantus to be held for now while acutely ill. 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 He has not been weightbearing or walking for quite some time. He has uncontrolled diabetes is [place]-compl[place] with [place] [facility] He was seen in the ED the day prior to admission and diagnosed with a UTI with an elevated WBC. Follow-up lab on the day of admission did reveal an increasing WBC with the patient having worsening hyperglycemia with poor control of his chronic diabetes. This is a chronic issue. The patient was noted to have a sacral ulcer which was worsening and there was some concern of abscess. The patient was admitted to the hospitalist service for treatment of his probable cellulitis and continued UTI as well as for management of his uncontrolled diabetes. He denies any fever or cough and has no GI symptoms. He has always sweaty. He does have some pain over his sacral area. His sacral ulcer was examined in the ED and was bandaged with a dry bandage upon arrival to the [facility] floor. Review of Systems Narrative: 13 point review of systems otherwise unrevealing or stable. [facility] Medical History Acromegaly (Chronic) Acute on chronic kidney failure (Resolved) Adrenal insufficiency (Chronic) Ambulatory dysfunction (Chronic) Anemia (Chronic) Atrial flutter, paroxysmal (Chronic) Back pain (Chronic 06/21/13) CAD (coronary artery disease) (Chronic) Cardiopulmonary arrest with successful resuscitation (Resolved) Cholelithiasis (Chronic) Chronic anxiety (Chronic) Chronic bipolar disorder (Chronic) a. With history of psychosis. Chronic cholecystitis (Chronic) Chronic insomnia (Chronic) Chronic pain (Chronic) On both Methadone and Fentanyl as well as Ultram and Naproxen. CKD (chronic kidney disease) (Chronic) Complicated UTI (urinary tract infection) (Resolved) Diabetes mellitus (Chronic) Diabetic foot ulcer (Chronic) Diabetic ulcer of toe associated with diabetes mellitus due to underlying condition, with bone involvement without evidence of necrosis (Inactive) 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 (Resolved) Dyslipidemia (Chronic) Elevated troponin I level (Resolved) Endocarditis due to Staphylococcus (Resolved) Heme positive stool (Resolved) Hemorrhagic cystitis (Chronic) Hyperkalemia (Resolved) Hypertension (Chronic) Hypomagnesemia (Chronic) Hypothyroidism (Chronic) Impaired mobility and ADLs (Chronic) Inability to get out of bed (Chronic 06/21/13) Lactic acidosis (Resolved) MRSA bacteremia (Resolved) MRSA colonization (Chronic) Obesity (Chronic) a. Obesity though he has had significant weight loss since last seen. Osteoarthritis of both knees (Chronic) Severe. a. [id number] bilateral knees. 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 2 diabetes mellitus (Resolved) Palliative care encounter (Chronic) DObbertin Pedal edema (Chronic) Poor self care (Chronic 06/21/13) Poorly controlled type 2 diabetes mellitus with circulatory disorder (Chronic) Presence of IVC filter (Acute) Pulmonary hypertension (Chronic) Rheumatoid arthritis (Chronic) Sepsis (Resolved) Septic arthritis of elbow, right (Inactive) Toxic metabolic encephalopathy (Resolved) Toxic metabolic encephalopathy (Resolved) Ulcerative colitis (Chronic) UTI (urinary tract infection) (Resolved) UTI (urinary tract infection) due to Enterococcus (Resolved) Surgical History Arthroplasty of knee (Resolved 03/18/12) irrigation and lavage right Fracture, Open Treatment (Resolved) [place]06[place] [place] RIGHT DISTAL HUMERUS FRACTURE History of insertion of T-tube into biliary tract (Chronic) S/P colectomy (Chronic) Social History Smoking/Tobacco Use Status: Former Tobacco Use Alcohol Intake: former Drug use: Rarely Substance use type: marijuana Housing: prison Do you feel safe at home: Yes Do you feel safe in your relationship?: Yes Additional Social history: [facility] Medications and Allergies Home Medications Medication Instructions Recorded Confirmed Type cyanocobalamin (vitamin B-12) 1,000 mcg PO DAILY 12/23/17 07/24/19 History ferrous sulfate 325 mg PO BID #0 tab 12/31/17 07/24/19 Rx magnesium chloride [Mag 64] 64 mg PO BID #0 tab 02/10/18 07/24/19 Rx terazosin 4 mg PO BID #0 cap 02/10/18 07/24/19 Rx Centrum Complete 1 tab PO DAILY 03/01/18 07/24/19 History ascorbic acid (vitamin C) [Vitamin 1 tab PO BID 03/01/18 07/24/19 History C] melatonin 6 mg PO HS #30 tab 06/19/18 07/24/19 Rx pantoprazole 40 mg PO DAILY #60 tab 06/19/18 07/24/19 Rx calcium carbonate-vitamin D3 1 tab PO BID 07/09/18 07/24/19 History [Calcium 500 + D] venlafaxine [Effexor XR] 112.5 mg PO DAILY 10/23/18 07/24/19 History acetaminophen [Tylenol] See Rx Instructions .ROUTE .COMPLEX 01/08/19 07/24/19 History gabapentin 300 mg PO TID 01/08/19 07/24/19 History Zyrtec 10 mg PO DAILY 02/23/19 07/24/19 History amlodipine 10 mg PO DAILY 02/26/19 07/24/19 History levothyroxine 12.5 mcg PO HS 02/26/19 07/24/19 History Lantus Solostar U-100 Insulin 50 unit SUBCUT DIRECTED 03/15/19 07/24/19 History insulin aspart U-100 10 unit SC AC #15 ml 03/19/19 07/24/19 Rx metoprolol tartrate 25 mg PO BID 05/01/19 07/24/19 History Eliquis 2.5 mg PO BID #60 tab 05/20/19 07/24/19 Rx clonidine HCl [Catapres] 0.1 mg PO TID #0 tab 05/20/19 07/24/19 Rx Combivent Respimat 1 puff INHALATION Q6H PRN 06/02/19 07/24/19 History Enrique 1 packet PO BID 06/02/19 07/24/19 History acidophilus-pectin, citrus 1 cap PO DAILY 06/02/19 07/24/19 History insulin lispro [Humalog KwikPen 0 unit SUBCUT AC 06/02/19 07/24/19 History Insulin] risperidone [Risperdal] 1.5 mg PO HS 06/02/19 07/24/19 History vitamin B complex 100 2-herbs 1 tab PO DAILY 06/02/19 07/24/19 History nystatin 0 g TOPICAL BID #0 g 06/04/19 07/24/19 Rx potassium bicarb-citric acid 20 meq PO DAILY #30 tab 06/04/19 07/24/19 Rx sodium bicarbonate 650 mg PO BID #90 tab 06/04/19 07/24/19 Rx CertaVite Senior-Antioxidant 1 tab PO QAM 06/07/19 07/24/19 History Duoneb 3 ml INHALATION PRN PRN 06/07/19 07/24/19 History furosemide [Lasix] 80 - 100 mg PO BID 06/07/19 07/24/19 History lorazepam [Ativan] 1 mg PO Q8H PRN 06/07/19 07/24/19 History cephalexin 500 mg PO BID 7 Days #14 tab 07/23/19 07/24/19 Rx prednisone 1 PO DAILY 07/24/19 History Allergies Allergy/AdvReac Type Severity Reaction Status Date / Time lisinopril Allergy Unverified 07/24/19 17:47 Exam Narrative Exam Narrative: General: Patient is lying in bed dysmorphic appearing with diffuse muscle atrophy, appearing chronically ill and older than stated age. His voice is hoarse with monotonous tone and slow speech. He is alert and oriented x3. He appears to be in moderate distress from arthritic pain and sacral discomfort. Skin: Warm, moist and oily especially over the head with pale color, normal turgor and atrophic hyperpigmented areas of skin especially over legs and ankles bilaterally. No open ulcers over the legs. There is a dry bandaged sacral ulcer which was described as stage III with a spongy, erythematous and edematous discolored area which was larger over the sacrum with multiple ulcerations at stage III within this space. HEENT: Normocephalic, coarsened features of the face with masklike faces. Eyes with pupils equal and reactive to light symmetrically, extraocular movement intact and sclera anicteric. Oropharynx with moist pink mucosa and very poor dentition with mostly missing teeth and discolored, carious teeth remaining. Ears normal externally. Neck: Supple without JVD. Back: Stooped posture with no CVA tenderness. Decreased range of motion. Lungs: Poor respiratory effort but is in clear to auscultation with no focalizing rales or rhonchi. Heart: Regular rate and rhythm with no murmurs or gallops appreciated. Abdomen: Obese contour, soft and nontender to palpation with no palpable hepatosplenomegaly. Genitalia/rectal: Exam deferred. Extremities: Peripheral pulses intact though decreased, muscle atrophy around bony, hypertrophied joints of the hands and knees with no swelling or erythema over these joints. Decreased range of motion over the joints of the hands upper extremities and lower extremities with knees and ankles. Knees are partially flexed and unable to fully extend. The patient does not appear to be actively bearing weight or walking. Nonpitting edema over the ankles feet bilaterally. No cyanosis or clubbing. Neuro: Cranial nerves II through XII grossly intact, motor with 4-5 strength diffusely appearing to be mostly from disuse but no focalizing. Psych: Depressed mood with flattened affect, remote and recent memory appear to be intact. No abnormal thought processes. Results Imaging Imaging Studies: Exam: CT Abdomen And Pelvis Without Contrast Exam date and time: 07/24/2019 5:59 PM Age: 59 years old Clinical indication: Other: Sacrum stage 2 ulcer, assess extent of wound; Prior surgery TECHNIQUE: Imaging protocol: Computed tomography of the abdomen and pelvis without contrast. Radiation optimization: All CT scans at this facility use at least one of these dose optimization techniques: automated exposure control; mA and/or kV adjustment per patient size (includes targeted exams where dose is matched to clinical indication); or iterative reconstruction. COMPARISON: CT CHEST/ABD/PEL WO 05/01/2019 3:18 PM FINDINGS: Lungs: Lung bases are unremarkable. Liver: Unremarkable appearance of liver. Gallbladder and bile ducts: Multiple gallstones. No acute biliary tract findings. No biliary dilatation or choledocholithiasis. Pancreas: Pancreatic atrophy. No acute pancreatic changes. Spleen: Spleen is normal in appearance. Adrenals: Normal adrenal glands. Kidneys and ureters: No hydronephrosis or renal calculi. Stomach and bowel: Right lower quadrant enterostomy. No bowel dilatation. No obstructive features. Surgical clips in the region of the rectum consistent with a previous sigmoid bowel surgery. Appendix: No evidence of appendicitis. Intraperitoneal space: No free fluid in the abdomen or pelvis. Vasculature: Inferior vena cava contains a filter device. Lymph nodes: There is suggestion of bilateral hilar calcified lymph nodes consistent with an old granulomatous process. Some small calcified lymph nodes are seen in the region of the diaphragmatic hiatus as well. Bladder: Unremarkable as visualized. Reproductive: Unremarkable as visualized. Bones/joints: Bones of the pelvis are unremarkable. No osteolytic or destructive changes. There is degenerative lumbar spine disease. There appears to be severe degeneration at the L2-L3 disc space with what may be fusion. It is unclear whether this is surgical fusion or an degenerative/spontaneous fusion Soft tissues: Soft tissues of the posterior superficial sacral region have surgical clips. There is a nonspecific fluid collection measuring 4.9 x 2.9 cm. This may represent a seroma, hematoma, or early abscess. There is no gas in this collection. There is a secondary collection which appears to communicate with the above described collection. This secondary focus is more cephalad and on the left side measuring 5.9 x 2.4 cm. There is no gas in this collection. Nonspecific scrotal soft tissue/skin thickening. There is a proximal right thigh lipoma measuring 6.2 cm within the deep muscular compartment. IMPRESSION: 1. Gallstones. 2. Pancreatic atrophy. 3. Right lower quadrant enterostomy. No bowel dilatation. No bowel obstructive features. Surgical clips in the region of the rectum consistent with partial colectomy. 4. Sacral region soft tissue swelling and fluid which could represent early abscess formation. There is no gas currently seen within this collection. See above report for full details of collection size in location. 5. Nonspecific scrotal skin or soft tissue thickening. 6. Proximal right thigh 6.2 cm anterior deep compartment lipoma. This has benign appearance. 7. No osteolytic or destructive pelvic changes. Dictated and Authenticated by: Zach Bautista MD. Labs Result diagrams: 07/24/19 18:10 07/24/19 23:25 Labs: Laboratory Results - last 24 hr 07/24/19 07/24/19 07/24/19 18:10 18:10 18:10 WBC 24.54 H RBC 4.44 L Hgb 9.8 L Hct 32.7 L MCV 73.6 L MCH 22.1 L MCHC 30.0 L RDW 15.8 H Plt Count 338 MPV 10.5 Immature Gran % See Differential Neutrophils % 92.0 Lymphocytes % 3.0 Monocytes % 4.0 Eosinophils % 0.0 Basophils % 0.0 Metamyelocytes % 1.0 Absolute Neutrophils 22.58 H Absolute Lymphocytes 0.74 L Absolute Monocytes 0.98 H Absolute Eosinophils 0.00 Absolute Basophils 0.00 Differential Comment Manual differential RBC Morphology See below Hypochromasia 1+ Poikilocytosis 1+ Anisocytosis 1+ Microcytosis 2+ PT INR APTT Sodium 128 L Potassium 5.7 H Chloride 96 L Carbon Dioxide 26.2 Anion Gap 5.8 BUN 65 H Creatinine 2.65 H Estimated GFR/1.73 m2 24.75 Glucose 650 H* D Lactate 1.0 Calcium 8.8 Total Bilirubin 0.3 AST 10 L ALT 15 L Alkaline Phosphatase 127 H Total Protein 6.9 Albumin 2.4 L Urine Color Urine Clarity Urine pH Ur Specific Island Urine Protein Urine Ketones Urine Blood Urine Nitrite Urine Bilirubin Urine Urobilinogen Ur Leukocyte Esterase Urine RBC Urine WBC Ur Epithelial Cells Urine Crystals Urine Bacteria Urine Mucus Ur Culture Indicated? Urine Glucose 07/24/19 07/24/19 18:10 18:40 WBC RBC Hgb Hct MCV MCH MCHC RDW Plt Count MPV Immature Gran % Neutrophils % Lymphocytes % Monocytes % Eosinophils % Basophils % Metamyelocytes % Absolute Neutrophils Absolute Lymphocytes Absolute Monocytes Absolute Eosinophils Absolute Basophils Differential Comment RBC Morphology Hypochromasia Poikilocytosis Anisocytosis Microcytosis PT 10.8 INR 1.1 APTT 26.4 Sodium Potassium Chloride Carbon Dioxide Anion Gap BUN Creatinine Estimated GFR/1.73 m2 Glucose Lactate Calcium Total Bilirubin AST ALT Alkaline Phosphatase Total Protein Albumin Urine Color Yellow Urine Clarity Cloudy Urine pH 6.0 Ur Specific Island 1.010 Urine Protein 30 H Urine Ketones Negative Urine Blood Moderate H Urine Nitrite Positive H Urine Bilirubin Negative Urine Urobilinogen 0.2 Ur Leukocyte Esterase Moderate H Urine RBC Not Applicable Urine WBC >50 H Ur Epithelial Cells Not Applicable Urine Crystals Not Applicable Urine Bacteria Urine Mucus Not Applicable Ur Culture Indicated? Yes Urine Glucose >=1000 H Last Vital Signs Temp 36.8 C 07/24/19 19:11 Pulse 66 07/24/19 19:31 Resp 22 07/24/19 19:50 BP 125/58 L 07/24/19 19:31 Pulse Ox 94 L 07/24/19 19:50 COVID-19 Screening In the past 14 days, have you traveled outside of [place] or [place]?: NO Had IN PERSON contact w/suspected or confirmed C-19 person: No
[2019-07-24 21:06] LABS: Magnesium 1.7 mg/dL (1.8-2.4); TSH (W/Ref FT4) 0.28 uIU/mL (0.36-3.74)
[2019-07-24 21:37] LABS: ESR 55 mm/hr (1-20)
--- NOTE | 2019-07-24 21:47 | W.SURGCON ---
Date of service: 07/25/19 Time of Service: 10:00 Assessment and Plan Assessment and plan (1) S/P proctocolectomy: Status: Acute (2) Ileostomy in place: Status: Acute (3) Decubitus ulcer, stage 4 with infection: Status: Acute (4) Decubitus ulcer of sacral region, stage 4: Status: Acute Assessment and plan: hx of MRSA cover w/ vanco and for anerobes debride in am. risks: bleeding/scar/prolonged healing vs permanent non-healing & comp of aenthesia. cults taken (5) MRSA colonization: Status: Chronic (6) Acute kidney injury superimposed on chronic kidney disease: Status: Acute (7) Diabetes mellitus: Status: Chronic Qualifiers: Diabetes mellitus complication detail: with polyneuropathy Diabetes mellitus complication status: with neurologic complications Diabetes mellitus intermediate insulin use: with terminal computer operator use Diabetes mellitus type: type 2 Qualified Code(s): E11.42 - Type 2 diabetes mellitus with diabetic polyneuropathy; Z79.4 - detention (current) use of insulin (8) Atrial flutter, paroxysmal: Status: Chronic Assessment and plan: hold all anticoags (9) Pulmonary hypertension: Status: Chronic (10) Chronic cholecystitis: Status: Chronic (11) Poorly controlled type 2 diabetes mellitus with circulatory disorder: Status: Chronic (12) Anemia: Status: Chronic Assessment and plan: IV iron Qualifiers: Anemia type: due to chronic kidney disease Chronic kidney disease stage: stage 4 (severe) Qualified Code(s): N18.4 - Chronic kidney disease, stage 4 (severe); D63.1 - Anemia in chronic kidney disease (13) Impaired mobility and ADLs: Status: Chronic (14) Cholelithiasis: Status: Chronic (15) Rheumatoid arthritis: Status: Chronic (16) Chronic bipolar disorder: Status: Chronic (17) CAD (coronary artery disease): Status: Chronic (18) Poor self care: Status: Chronic (19) Inability to get out of bed: Status: Chronic (20) Back pain: Status: Chronic (21) Protein-calorie malnutrition, mild: Status: Acute Assessment and plan: protein supplements History of Present Illness Narrative: I am asked to see pt regarding sacral decub. He says he has never had one before. He has an ostomy b/c of UC. He is on high does long standing steroids. He is a poorly controlled DM. He doesn't walk and has very poor muscle tone-he can't even roll over in bed. He looks malnourished. His hgb is only averages around 10. albumin averages around 2.5. He has a hx of MRSA. He has mult amputations of his LE. Odds of this healing are very low. He has neuropathy adn chronic pain syndrome. His chart, labs and xrays all reviewed. Review of Systems All systems reviewed & are unremarkable except as noted in HPI and below [facility] Medical History (Updated 07/25/19 @ 21:49 by Lela Webb DO) Acromegaly (Chronic) Acute on chronic kidney failure (Resolved) Adrenal insufficiency (Chronic) Ambulatory dysfunction (Chronic) Anemia (Chronic Unknown) Atrial flutter, paroxysmal (Chronic) Back pain (Chronic 06/21/13) CAD (coronary artery disease) (Chronic) Cardiopulmonary arrest with successful resuscitation (Resolved) Chronic anxiety (Chronic) Chronic bipolar disorder (Chronic) a. With history of psychosis. Chronic cholecystitis (Chronic) Chronic insomnia (Chronic) Chronic pain (Chronic) On both Methadone and Fentanyl as well as Ultram and Naproxen. CKD (chronic kidney disease) (Chronic) Decubitus ulcer of sacral region, stage 4 (Acute) Decubitus ulcer, stage 4 with infection (Acute) Diabetes mellitus (Chronic) Diabetic ulcer of toe associated with diabetes mellitus due to underlying condition, with bone involvement without evidence of necrosis (Inactive) 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 (Resolved) Dyslipidemia (Chronic) Endocarditis due to Staphylococcus (Resolved) Hemorrhagic cystitis (Chronic) Hyperkalemia (Acute) Hypomagnesemia (Chronic) Hypothyroidism (Chronic) Ileostomy in place (Acute) Impaired mobility and ADLs (Chronic) Inability to get out of bed (Chronic 06/21/13) Lactic acidosis (Resolved) MRSA bacteremia (Resolved) Obesity (Chronic) a. Obesity though he has had significant weight loss since last seen. Osteoarthritis of both knees (Chronic) Severe. a. [id number] bilateral knees. 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 2 diabetes mellitus (Resolved) Palliative care encounter (Chronic) DObbertin Pedal edema (Chronic) Poor self care (Chronic 06/21/13) Poorly controlled type 2 diabetes mellitus with circulatory disorder (Chronic) Presence of IVC filter (Acute) Protein-calorie malnutrition, mild (Acute) Pulmonary hypertension (Chronic) Rheumatoid arthritis (Chronic) Sepsis (Resolved) Septic arthritis of elbow, right (Inactive) Toxic metabolic encephalopathy (Resolved) Ulcerative colitis (Chronic) UTI (urinary tract infection) (Resolved) UTI (urinary tract infection) due to Enterococcus (Resolved) Surgical History (Updated 07/25/19 @ 13:32 by Lela Webb DO) Arthroplasty of knee (Resolved 03/18/12) irrigation and lavage right Fracture, Open Treatment (Resolved) 06/06/17-[facility] [place] S/P ORIF RIGHT DISTAL HUMERUS FRACTURE History of insertion of T-tube into biliary tract (Chronic) S/P colectomy (Chronic) S/P proctocolectomy (Acute) Social History Smoking/Tobacco Use Status: Former Tobacco Use Alcohol Intake: former Drug use: Rarely Substance use type: marijuana Housing: residential Do you feel safe at home: Yes Do you feel safe in your relationship?: Yes Additional Social history: Living at [facility] [place] Exam Const General: no acute distress and frail appearing Orientation: alert, awake and oriented x3 HENMT Teeth and gingiva: caries and poor dentition Resp Effort & Inspection: normal respiratory effort and able to speak in complete sentences Auscultation: clear to auscultation bilaterally Cardio Rhythm: abnormal rhythm and other (chronic A. fib ) GI Inspection: incision and other (ostomy. pt says ileostomy) Palpation: soft Other: soft and non tender. post surgical changes noted. s/p APR. rectum wound well healed. Other: excoriation under scrotum. appears to be chronic yeast. mult areas of scaring. the decub is red & violaceous. There is fluntuance adn an open area w/ 3-4 sinus tracts that are draining purulent material. From visual inspection- this appears to be only stage II. However, it appears that this is quite deep and probably down to the bone. There is a lg cavity w/ fluids- may be abscess. it measures 6x8. Skin Hair: male pattern alopecia Nails: dystrophic Other: dry adn flaking muscle wasting Extrem General: no pedal edema Other: wound on RLE. middle ant negro. 25% heeling echar 25% granular rest necrotic eschar. will debride in or. severe deformity from RA. Muscle wasting and lack of tone. no edema. signif scarring. Results Last Vital Signs Temp 36.8 C 07/24/19 19:11 Pulse 67 07/24/19 21:31 Resp 22 07/24/19 21:40 BP 130/62 07/24/19 21:31 Pulse Ox 94 L 07/24/19 21:40 Labs Result diagrams: 07/25/19 18:00 07/25/19 06:37 Labs: Laboratory Results - last 24 hr 07/24/19 07/24/19 07/24/19 18:10 18:10 18:10 WBC 24.54 H RBC 4.44 L Hgb 9.8 L Hct 32.7 L MCV 73.6 L MCH 22.1 L MCHC 30.0 L RDW 15.8 H Plt Count 338 MPV 10.5 Immature Gran % See Differential Neutrophils % 92.0 Lymphocytes % 3.0 Monocytes % 4.0 Eosinophils % 0.0 Basophils % 0.0 Metamyelocytes % 1.0 Absolute Neutrophils 22.58 H Absolute Lymphocytes 0.74 L Absolute Monocytes 0.98 H Absolute Eosinophils 0.00 Absolute Basophils 0.00 Differential Comment Manual differential RBC Morphology See below Hypochromasia 1+ Poikilocytosis 1+ Anisocytosis 1+ Microcytosis 2+ ESR PT INR APTT Sodium 128 L Potassium 5.7 H Chloride 96 L Carbon Dioxide 26.2 Anion Gap 5.8 BUN 65 H Creatinine 2.65 H Estimated GFR/1.73 m2 24.75 Glucose 650 H* D Lactate 1.0 Calcium 8.8 Magnesium Total Bilirubin 0.3 AST 10 L ALT 15 L Alkaline Phosphatase 127 H C-Reactive Protein Total Protein 6.9 Albumin 2.4 L TSH Free T4 Urine Color Urine Clarity Urine pH Ur Specific [place] Urine Protein Urine Ketones Urine Blood Urine Nitrite Urine Bilirubin Urine Urobilinogen Ur Leukocyte Esterase Urine RBC Urine WBC Ur Epithelial Cells Urine Crystals Urine Bacteria Urine Mucus Ur Culture Indicated? Urine Glucose 07/24/19 07/24/19 07/24/19 18:10 18:10 18:10 WBC RBC Hgb Hct MCV MCH MCHC RDW Plt Count MPV Immature Gran % Neutrophils % Lymphocytes % Monocytes % Eosinophils % Basophils % Metamyelocytes % Absolute Neutrophils Absolute Lymphocytes Absolute Monocytes Absolute Eosinophils Absolute Basophils Differential Comment RBC Morphology Hypochromasia Poikilocytosis Anisocytosis Microcytosis ESR PT 10.8 INR 1.1 APTT 26.4 Sodium Potassium Chloride Carbon Dioxide Anion Gap BUN Creatinine Estimated GFR/1.73 m2 Glucose Lactate Calcium Magnesium 1.7 L Total Bilirubin AST ALT Alkaline Phosphatase C-Reactive Protein 11.70 H Total Protein Albumin TSH 0.28 L Free T4 1.20 Urine Color Urine Clarity Urine pH Ur Specific [place] Urine Protein Urine Ketones Urine Blood Urine Nitrite Urine Bilirubin Urine Urobilinogen Ur Leukocyte Esterase Urine RBC Urine WBC Ur Epithelial Cells Urine Crystals Urine Bacteria Urine Mucus Ur Culture Indicated? Urine Glucose 07/24/19 07/24/19 18:10 18:40 WBC RBC Hgb Hct MCV MCH MCHC RDW Plt Count MPV Immature Gran % Neutrophils % Lymphocytes % Monocytes % Eosinophils % Basophils % Metamyelocytes % Absolute Neutrophils Absolute Lymphocytes Absolute Monocytes Absolute Eosinophils Absolute Basophils Differential Comment RBC Morphology Hypochromasia Poikilocytosis Anisocytosis Microcytosis ESR 55 H PT INR APTT Sodium Potassium Chloride Carbon Dioxide Anion Gap BUN Creatinine Estimated GFR/1.73 m2 Glucose Lactate Calcium Magnesium Total Bilirubin AST ALT Alkaline Phosphatase C-Reactive Protein Total Protein Albumin TSH Free T4 Urine Color Yellow Urine Clarity Cloudy Urine pH 6.0 Ur Specific [place] 1.010 Urine Protein 30 H Urine Ketones Negative Urine Blood Moderate H Urine Nitrite Positive H Urine Bilirubin Negative Urine Urobilinogen 0.2 Ur Leukocyte Esterase Moderate H Urine RBC Not Applicable Urine WBC >50 H Ur Epithelial Cells Not Applicable Urine Crystals Not Applicable Urine Bacteria Urine Mucus Not Applicable Ur Culture Indicated? Yes Urine Glucose >=1000 H
[2019-07-24] MEDS: Levothyroxine 25 MCG TAB 12.5 MCG PO (23:28)
[2019-07-24] MEDS: risperiDONE 0.5 MG TAB 1.5 MG PO (23:28)
[2019-07-24] MEDS: Melatonin 3 MG TAB 6 MG PO (23:28)
[2019-07-24] MEDS: MAGNESIUM SULFATE 1 GM/100 ML BAG IVPB (23:29)
[2019-07-24] MEDS: Hydrocortisone SOD SUC. 100 MG VIAL IVP (23:29)
[2019-07-24 23:48] LABS: Glucose 520 mg/dL (74-106)
[2019-07-24] MEDS: Insulin Aspart 300 UNITS/3 ML PEN SC (23:55)
[2019-07-25] VITALS (8 sets, daily range): BP systolic 123–161; BP diastolic 68–82; PULSE 54–68; RESP 1–20; TEMP 36–37; O2SAT 93–99
[2019-07-25] MEDS: VANCOMYCIN 1,000 MG in Normal Saline 250 ML 166.6666 MG IVPB (00:22)
[2019-07-25] MEDS: PIPERACILLIN/TAZO 4.5 GM in Normal Saline 100 ML IVPB ×4 (00:31→23:44)
[2019-07-25] MEDS: Normal Saline 1,000 ML 150 ML IV (03:00)
[2019-07-25] MEDS: Hydrocortisone SOD SUC. 100 MG VIAL IVP ×3 (06:01→22:05)
[2019-07-25 06:53] LABS: Mean Corp. HGB Concentration 30.3 g/dL (32.0-36.0); Mean Corpuscular Hemoglobin 22.1 pg (27.0-33.0); Mean Platelet Volume 11.2 fL (8.0-11.0); Platelet Count 346 x1000/uL (130-400); RBC 4.52 m/cumm (4.50-6.00); RBC Distribution Width 15.7 % (11.8-14.1); White Blood Cell Count 19.14 k/cumm (4.4-10.8)
[2019-07-25 07:25] LABS: ALT 13 U/L (16-63); AST 8 U/L (15-37); Albumin 2.2 g/dL (3.4-5.0); Alkaline Phosphatase 117 U/L (46-116); BUN 55 mg/dL (7-18); Bilirubin, Total 0.3 mg/dL (0.2-1.0); Calcium 9.2 mg/dL (8.5-10.1); Chloride 101 mmol/L (98-107); Estimated GFR 29.15 (mL/min/1.73m2); Glucose 467 mg/dL (74-106); Potassium 5.8 mmol/L (3.5-5.1); Sodium 133 mmol/L (136-145); Total Protein 6.6 g/dL (6.4-8.2)
[2019-07-25] MEDS: Pantoprazole 40 MG TABCR PO (07:53)
[2019-07-25] MEDS: Metoprolol 25 MG TAB PO ×2 (07:53→19:33)
[2019-07-25] MEDS: Insulin NPH-Human 300 UNITS/3 ML PEN 50 UNIT SC ×3 (07:54→22:05)
[2019-07-25] MEDS: Insulin Aspart 300 UNITS/3 ML PEN SC ×4 (07:54→22:07)
[2019-07-25] MEDS: Normal Saline Flush 10 ML SYR (08:03)
[2019-07-25] MEDS: IRON SUCROSE COMPLEX 200 MG in Normal Saline 100 ML 400 MG IVPB (08:03)
[2019-07-25] MEDS: MAGNESIUM SULFATE 2 GM/50 ML BAG IVPB (08:42)
--- NOTE | 2019-07-25 09:22 | W.PM.PROGNOT ---
Date of Service Date of service: 07/25/19 Time of Service: 09:25 Assessment and Plan Assessment and plan (1) Pressure ulcer, sacrum: Start date: 07/25/19 Start time: 09:52 Status: Acute Assessment and plan: Plan for debridement with Dr. Conway today. Eliquis on hold, however last dose yesterday at 1630. Qualifiers: Pressure injury stage: stage 1 Qualified Code(s): L89.151 - Pressure ulcer of sacral region, stage 1 (2) UTI (urinary tract infection): Start date: 07/25/19 Start time: 09:52 Status: Acute Assessment and plan: Positive nitrates with moderate leukocyte Esterase found prior to admission. Placed on zosyn by Dr. Conway for wound will D/C rocephin as this will cover Urinary and wound. Qualifiers: Urinary tract infection type: site unspecified Hematuria presence: without hematuria Qualified Code(s): N39.0 - Urinary tract infection, site not specified (3) Acute kidney injury superimposed on chronic kidney disease: Start date: 07/25/19 Start time: 09:54 Status: Acute Assessment and plan: Patient does have chronic CKD. IVF at 100, hold lasix po. BUN, Creatinine appears baseline by review of labs. Continue to monitor daily BMP (4) Acute adrenal insufficiency: Start date: 07/25/19 Start time: 09:56 Status: Chronic Assessment and plan: Patient has a history of adrenal insufficiency will be given stress steroids IV during his hospital stay. Will also continue prednisone while on stress steroids, per records they are trying to wean down steroids will continue 13 mg dose and monitor for improvement. (5) Poorly controlled type 2 diabetes mellitus with circulatory disorder: Start date: 07/25/19 Start time: 09:57 Status: Chronic Assessment and plan: Glucometers before meals and at bedtime with short acting insulin coverage for meals and bedtime with a higher dose and the patient's Lantus to be held for now while acutely ill. Will also add NPH for stress dose steroid coverage for better glucose control. (6) CHF (congestive heart failure): Start date: 07/25/19 Start time: 10:01 Status: Chronic Assessment and plan: History of CHF, does not appear volume overloaded, continue telemetry, continue home meds. Heart healthy, low potassium, low carb diet. (7) Hypothyroidism: Start date: 07/25/19 Start time: 10:02 Status: Chronic Assessment and plan: TSH 0.28, however free t4 1.20, continue current dose levothyroxine Qualifiers: Hypothyroidism type: acquired Qualified Code(s): E03.9 - Hypothyroidism, unspecified (8) DVT prophylaxis: Start date: 07/25/19 Start time: 10:05 Status: Acute Assessment and plan: Currently on Eliquis po BID for afib however on hold due to procedure. (9) Hypomagnesemia: Start date: 07/25/19 Start time: 10:05 Status: Chronic Assessment and plan: Replete with 2 gm. Recheck in am and montior while in patient. (10) CAD (coronary artery disease): Start date: 07/25/19 Start time: 10:05 Status: Chronic Assessment and plan: Continue BB, CCB (11) Rheumatoid arthritis: Start date: 07/25/19 Start time: 10:06 Status: Chronic Assessment and plan: Severe RA, on prednisone daily for RA, see adrenal insufficiency above. Above case discussed with Dr. Fishre who is in agreement. Subjective Subjective Patient reports: no new complaints Interval history since last seen: Brendan appears to be doing ok this morning. He is asking to speak to the CAREER COUNSELOR regarding his procedure this morning. I spoke with Gloria ESCOBEDO regarding his request. He is upset about his feet he states they need to be washed twice a day and have lotion applied but this has not been happening at the [facility]. Will order for BID foot washing. He denies SOB, N/V/D, CP, Exam Const General: cooperative and ill appearing chronically Nutritional Appearance: obese Orientation: alert, awake and oriented x3 HENMT Head: normal to inspection, normocephalic and atraumatic Resp Effort & Inspection: able to speak in complete sentences, abnormal respiratory pattern and other (requiring oxygen) Auscultation: clear to auscultation bilaterally Cardio Jugular venous pressure: no JVD Rate: abnormal rate Rhythm: abnormal rhythm GI Inspection: obesity Palpation: soft and no hepatosplenomegaly Auscultation: normal bowel sounds Back/Spine/Pelvis Back: no CVA tenderness Thoracic/Lumbar Spine: thoracic and lumbar spine normal to inspection Sacrum: other (wound with drainage, blanchable, discolored.) Other: wound to s Skin General skin exam: dry skin and excoriation (rectal area) Neuro General: patient alert, patient awake and patient oriented x3 Extrem General: pedal edema present (1+ to right foot.) Objective Objective Clinical Data: Abnormal lab results 07/24/19 07/24/19 07/24/19 Range/Units 18:10 18:10 18:10 WBC 24.54 H (4.4-10.8) k/cumm RBC 4.44 L (4.50-6.00) m/cumm Hgb 9.8 L (13.5-17.5) g/dL Hct 32.7 L (40.0-50.0) % MCV 73.6 L (80-95) fL MCH 22.1 L (27.0-33.0) pg MCHC 30.0 L (32.0-36.0) g/dL RDW 15.8 H (11.8-14.1) % MPV (8.0-11.0) fL Absolute Neutrophils 22.58 H (1.2-6.7) k/cumm Absolute Lymphocytes 0.74 L (1.2-3.4) k/cumm Absolute Monocytes 0.98 H (0.11-0.7) k/cumm ESR (1-20) mm/hr Sodium 128 L (136-145) mmol/L Potassium 5.7 H (3.5-5.1) mmol/L Chloride 96 L (98-107) mmol/L BUN 65 H (7-18) mg/dL Creatinine 2.65 H (0.70-1.30) mg/dL Glucose 650 H* D (74-106) mg/dL Magnesium 1.7 L (1.8-2.4) mg/dL AST 10 L (15-37) U/L ALT 15 L (16-63) U/L Alkaline Phosphatase 127 H (46-116) U/L C-Reactive Protein (0.0-0.3) mg/dL Albumin 2.4 L (3.4-5.0) g/dL TSH 0.28 L (0.36-3.74) uIU/mL Urine Protein (Negative) mg/dL Urine Blood (Negative) Urine Nitrite (Negative) Ur Leukocyte Esterase (Negative) Urine WBC (0-5) HPF Urine Glucose (Negative) mg/dL 07/24/19 07/24/19 07/24/19 Range/Units 18:10 18:10 18:40 WBC (4.4-10.8) k/cumm RBC (4.50-6.00) m/cumm Hgb (13.5-17.5) g/dL Hct (40.0-50.0) % MCV (80-95) fL MCH (27.0-33.0) pg MCHC (32.0-36.0) g/dL RDW (11.8-14.1) % MPV (8.0-11.0) fL Absolute Neutrophils (1.2-6.7) k/cumm Absolute Lymphocytes (1.2-3.4) k/cumm Absolute Monocytes (0.11-0.7) k/cumm ESR 55 H (1-20) mm/hr Sodium (136-145) mmol/L Potassium (3.5-5.1) mmol/L Chloride (98-107) mmol/L BUN (7-18) mg/dL Creatinine (0.70-1.30) mg/dL Glucose (74-106) mg/dL Magnesium (1.8-2.4) mg/dL AST (15-37) U/L ALT (16-63) U/L Alkaline Phosphatase (46-116) U/L C-Reactive Protein 11.70 H (0.0-0.3) mg/dL Albumin (3.4-5.0) g/dL TSH (0.36-3.74) uIU/mL Urine Protein 30 H (Negative) mg/dL Urine Blood Moderate H (Negative) Urine Nitrite Positive H (Negative) Ur Leukocyte Esterase Moderate H (Negative) Urine WBC >50 H (0-5) HPF Urine Glucose >=1000 H (Negative) mg/dL 07/24/19 07/25/19 07/25/19 Range/Units 23:25 06:37 06:37 WBC 19.14 H (4.4-10.8) k/cumm RBC (4.50-6.00) m/cumm Hgb 10.0 L (13.5-17.5) g/dL Hct 33.0 L (40.0-50.0) % MCV 73.0 L (80-95) fL MCH 22.1 L (27.0-33.0) pg MCHC 30.3 L (32.0-36.0) g/dL RDW 15.7 H (11.8-14.1) % MPV 11.2 H (8.0-11.0) fL Absolute Neutrophils (1.2-6.7) k/cumm Absolute Lymphocytes (1.2-3.4) k/cumm Absolute Monocytes (0.11-0.7) k/cumm ESR (1-20) mm/hr Sodium 133 L (136-145) mmol/L Potassium 5.8 H (3.5-5.1) mmol/L Chloride (98-107) mmol/L BUN 55 H (7-18) mg/dL Creatinine 2.30 H (0.70-1.30) mg/dL Glucose 520 H* 467 H (74-106) mg/dL Magnesium (1.8-2.4) mg/dL AST 8 L (15-37) U/L ALT 13 L (16-63) U/L Alkaline Phosphatase 117 H (46-116) U/L C-Reactive Protein (0.0-0.3) mg/dL Albumin 2.2 L (3.4-5.0) g/dL TSH (0.36-3.74) uIU/mL Urine Protein (Negative) mg/dL Urine Blood (Negative) Urine Nitrite (Negative) Ur Leukocyte Esterase (Negative) Urine WBC (0-5) HPF Urine Glucose (Negative) mg/dL Vital Signs Temperature 37 C 07/25/19 08:01 Temperature Source Tympanic 07/25/19 08:01 Pulse 64 07/25/19 08:01 Pulse Rhythm Regular 07/25/19 09:07 Pulse 69 07/24/19 21:40 Respiratory Rate 15 07/25/19 08:01 Respiratory Effort Non-Labored 07/25/19 09:07 Respiratory Depth Normal 07/25/19 09:07 Respiratory Pattern Normal 07/25/19 09:07 Blood Pressure 144/82 H 07/25/19 08:01 Blood Pressure Mean 77 07/24/19 21:31 Blood Pressure Position Supine 07/24/19 17:19 Pulse Oximetry 93 L 07/25/19 08:01 Oxygen Delivery Method Room Air 07/25/19 08:01 Oxygen Flow Rate 0 07/25/19 08:01 Pain Level 2 07/25/19 01:54 Comment 07/24/19 17:19 Intake & Output 07/24/19 07/24/19 07/25/19 11:59 23:59 11:59 Intake Total 420 / 420 460 / 460 Output Total 1300 / 1300 550 / 550 Balance -880 / -880 -90 / -90 Weight 97.3 kg 97.9 kg Intake: IV 460 / 460 Oral 400 / 400 Output: Urine 900 / 900 450 / 450 Stool 200 / 200 100 / 100 Urine/Stool Mix 200 / 200 Other: Urine Color Yellow Yellow Urine Appearance Clear Clear Urine Odor Normal Normal Stool Size Moderate Small Stool Characteristics Soft Soft Liquid Liquid Voiding Methods Urinal Urinal Laboratory Results WBC 19.14 k/cumm (4.4-10.8) H 07/25/19 06:37 RBC 4.52 m/cumm (4.50-6.00) 07/25/19 06:37 Hgb 10.0 g/dL (13.5-17.5) L 07/25/19 06:37 Hct 33.0 % (40.0-50.0) L 07/25/19 06:37 MCV 73.0 fL (80-95) L 07/25/19 06:37 MCH 22.1 pg (27.0-33.0) L 07/25/19 06:37 MCHC 30.3 g/dL (32.0-36.0) L 07/25/19 06:37 RDW 15.7 % (11.8-14.1) H 07/25/19 06:37 Plt Count 346 x1000/uL (130-400) 07/25/19 06:37 MPV 11.2 fL (8.0-11.0) H 07/25/19 06:37 Immature Gran % See Differential 07/24/19 18:10 Neutrophils % 92.0 07/24/19 18:10 Lymphocytes % 3.0 07/24/19 18:10 Monocytes % 4.0 07/24/19 18:10 Eosinophils % 0.0 07/24/19 18:10 Basophils % 0.0 07/24/19 18:10 Metamyelocytes % 1.0 % 07/24/19 18:10 Absolute Neutrophils 22.58 k/cumm (1.2-6.7) H 07/24/19 18:10 Absolute Lymphocytes 0.74 k/cumm (1.2-3.4) L 07/24/19 18:10 Absolute Monocytes 0.98 k/cumm (0.11-0.7) H 07/24/19 18:10 Absolute Eosinophils 0.00 k/cumm (0.0-0.7) 07/24/19 18:10 Absolute Basophils 0.00 k/cumm (0.0-0.2) 07/24/19 18:10 Differential Comment Manual differential 07/24/19 18:10 RBC Morphology See below 07/24/19 18:10 Hypochromasia 1+ 07/24/19 18:10 Poikilocytosis 1+ 07/24/19 18:10 Anisocytosis 1+ 07/24/19 18:10 Microcytosis 2+ 07/24/19 18:10 ESR 55 mm/hr (1-20) H 07/24/19 18:10 PT 10.8 sec (9.3-11.0) 07/24/19 18:10 INR 1.1 (0.9-1.1) 07/24/19 18:10 APTT 26.4 sec (21.0-31.4) 07/24/19 18:10 Sodium 133 mmol/L (136-145) L 07/25/19 06:37 Potassium 5.8 mmol/L (3.5-5.1) H 07/25/19 06:37 Chloride 101 mmol/L (98-107) 07/25/19 06:37 Carbon Dioxide 26.0 mmol/L (21.0-32.0) 07/25/19 06:37 Anion Gap 6.0 mmol/L (3-11) 07/25/19 06:37 BUN 55 mg/dL (7-18) H 07/25/19 06:37 Creatinine 2.30 mg/dL (0.70-1.30) H 07/25/19 06:37 Estimated GFR/1.73 m2 29.15 (mL/min/1.73m2) 07/25/19 06:37 Glucose 467 mg/dL (74-106) H 07/25/19 06:37 Lactate 1.0 mmol/L (0.6-1.4) 07/24/19 18:10 Calcium 9.2 mg/dL (8.5-10.1) 07/25/19 06:37 Magnesium 1.7 mg/dL (1.8-2.4) L 07/24/19 18:10 Total Bilirubin 0.3 mg/dL (0.2-1.0) 07/25/19 06:37 AST 8 U/L (15-37) L 07/25/19 06:37 ALT 13 U/L (16-63) L 07/25/19 06:37 Alkaline Phosphatase 117 U/L (46-116) H 07/25/19 06:37 C-Reactive Protein 11.70 mg/dL (0.0-0.3) H 07/24/19 18:10 Total Protein 6.6 g/dL (6.4-8.2) 07/25/19 06:37 Albumin 2.2 g/dL (3.4-5.0) L 07/25/19 06:37 TSH 0.28 uIU/mL (0.36-3.74) L 07/24/19 18:10 Free T4 1.20 ng/dL (0.76-1.46) 07/24/19 18:10 Urine Color Yellow (Yellow) 07/24/19 18:40 Urine Clarity Cloudy (Clear) 07/24/19 18:40 Urine pH 6.0 (5-8) 07/24/19 18:40 Ur Specific [place] 1.010 (1.005-1.025) 07/24/19 18:40 Urine Protein 30 mg/dL (Negative) H 07/24/19 18:40 Urine Ketones Negative mg/dL (Negative) 07/24/19 18:40 Urine Blood Moderate (Negative) H 07/24/19 18:40 Urine Nitrite Positive (Negative) H 07/24/19 18:40 Urine Bilirubin Negative (Negative) 07/24/19 18:40 Urine Urobilinogen 0.2 EU/dL (Up TO 0.2) 07/24/19 18:40 Ur Leukocyte Esterase Moderate (Negative) H 07/24/19 18:40 Urine RBC Not Applicable 07/24/19 18:40 Urine WBC >50 HPF (0-5) H 07/24/19 18:40 Ur Epithelial Cells Not Applicable 07/24/19 18:40 Urine Crystals Not Applicable 07/24/19 18:40 Urine Bacteria HPF (Negative) 07/24/19 18:40 Urine Mucus Not Applicable 07/24/19 18:40 Ur Culture Indicated? Yes 07/24/19 18:40 Urine Glucose >=1000 mg/dL (Negative) H 07/24/19 18:40
[2019-07-25] MEDS: Lactated Ringers 1,000 ML 80 ML IV (11:22)
[2019-07-25 11:46] LABS: C-Reactive Protein 10.39 mg/dL (0.0-0.3); Magnesium 2.1 mg/dL (1.8-2.4)
[2019-07-25] MEDS: Normal Saline 1,000 ML 100 ML IV (12:00)
[2019-07-25 12:05] LABS: Iron 14 ug/dL (65-175); Total Iron Binding Capacity 154 ug/dL (250-450)
[2019-07-25] MEDS: Lidocaine 1% Multi-Dose 50 ML VIAL (12:05)
[2019-07-25] MEDS: Bupivacaine 0.25% Pres-Free 30 ML VIAL (12:05)
[2019-07-25] MEDS: Gelatin SPONGE 12-7 MM PKT 1 EACH TP (12:10)
--- NOTE | 2019-07-25 12:10 | INITIAL_ITS ---
- If Service Date Differs Date of service: 07/25/19 Time of Service: 12:19 Care Management Initial Assess REASON FOR HOSPITALIZATION:: UTI, Sacral Ulcer w/abcess, Uncontrolled diabetes PAST MEDICAL HISTORY/PAST SURGICAL HISTORY:: CHF, Anemia, Anxiety, Back Pain, Bipolar Disorder, CAD, Cardiopulmonary arrest with successful resuscitation, cholelithiasis, anxiety, insomnia, chronic pain, CKD, Crohn's Disease, DM type 2 with diabetic neuropathy, diabetic foot ulcer, dyslipidemia, heme positive stool, hemorrhagic cystitis, hypertension, hypoandrogenism, hypothyroidism, impaired mobility and ADLs, Obesity, Pedal edema, Osteoarthritis of both knees, poor self care, poorly controlled DM2 with circulatory disorder, RA, TKA, Fracture ORIF R distal humerus fracture. PREVIOUS FUNCTIONAL STATUS/SOCIAL/FAMILY SUPPORTS:: Brendan is a longterm resident at the [facility] facility in [place] and requires assistance with all ADLs. Brendan has a sister, Lian Hardy (P#[phone]) who lives in [facility] but they have limited contact. They do speak via phone every couple of weeks. he also has numerous nieces and nephews but states he rarely sees them. His sister is his only identified family support. Brendan enjoys reading and watching TV. ADVANCE DIRECTIVES:: [facility] on file Has patient been provided with information about the portal?: No Did the patient sign up for the portal?: No CODE STATUS:: Full Code INSURANCE COVERAGE / FINANCIAL ISSUES:: Medicare. Medicaid CURRENT HOME/COMMUNITY SERVICES/EQUIPMENT:: Brendan is a resident at the [facility]-the facility manages his service and equipment needs. PRIMARY CARE PHYSICIAN:: Dr. Renteria at the [facility] POTENTIAL DISCHARGE NEEDS:: Coordinated return to the [facility]. PATIENT/FAMILY EDUCATION NEEDS:: Review discharge instructions, discuss Ask Me Three. ANTICIPATED BARRIERS TO DISCHARGE:: None identified. TRANSPORTATION:: Via [facility] W[facility] van coordinated by KATELYN. PLAN:: Brendan will have debridement of ulcer completed by surgeon today. CM faxed clinicals to [facility] Admissions for notification of current medical status. Anticipate he will return to the [facility] when ready per MD, and transport via [facility] W[facility] van coordinated by KATELYN. KATELYN will continue to provide ongoing support to patient discharge planning needs.
[2019-07-25 12:19] LABS: Ferritin 369 ng/mL (26-388)
[2019-07-25 12:49] LABS: COVID-19 RT-PCR UVMMC Result Negative (Negative)
[2019-07-25] MEDS: Venlafaxine 37.5 MG CAPCR 112.5 MG PO (13:14)
[2019-07-25] MEDS: predniSONE 1 MG TAB 3 MG PO (13:15)
[2019-07-25] MEDS: cloNIDine 0.1 MG TAB PO ×2 (13:15→19:33)
[2019-07-25] MEDS: Cyanocobalamin 500 MCG TAB 1000 MCG PO (13:15)
[2019-07-25] MEDS: amLODIPine 5 MG TAB 10 MG PO (13:16)
[2019-07-25] MEDS: Gabapentin 100 MG CAP 300 MG PO (13:17)
[2019-07-25] MEDS: Cetirizine 10 MG TAB PO (13:17)
--- NOTE | 2019-07-25 13:17 | NUR.NOTE ---
Nursing Note: Negative Covid result reported back from lab. MS Clinical Coordinator Maria C azul
[2019-07-25] MEDS: oxyCODONE 5 MG TAB PO ×2 (13:31→19:47)
[2019-07-25] MEDS: predniSONE 10 MG TAB PO (13:32)
--- NOTE | 2019-07-25 13:33 | W.PM.OP ---
Date of service: 07/25/19 Time of Service: 13:33 Operative Note Operative Note DATE OF PROCEDURE: 07/25/19 PRE-OP DIAGNOSIS: infected sacral pressure ulcer POST-OP DIAGNOSIS: other (infected decubitus/sacral ulcer w/ abscess. stage 4) PROCEDURE: I & D of sacral decub and RLE wound SURGEON: Lela Webb ANESTHESIA: MAC ESTIMATED BLOOD LOSS: 100 COMPLICATIONS: None Patient was transported to: floor Procedure Description: . He has a ileostomy and does not lay on his stomach. He is bedbound. He does not walk and does not turn easily. The area is about 4 x 8 inches. It is red swollen violaceous very tender to touch and significant amount of fluctuance. Patient is here for debridement. Informed consent is obtained explaining risks and benefits including need for repeat debridement, nonhealing, complications from anesthesia. Patient brought to the operative suite at that time we noticed that he also has a 5 inch x 2 inch wound on his right lower extremity. Patient presents for this today. He does well. Patient is placed in the operative room table in a right-sided semi-Fowlers position with all bony surfaces padded anesthesia is administered per the department of anesthesia the right lower extremity is attended to first. A timeout is performed prior to beginning the procedure. This is a wound that appears to be down to the fat. 25% with healed eschar 25% granulation tissue and 50% necrotic tissue. All the necrotic tissue is debrided away with a forceps and gauze. There is no bleeding. Patient tolerated well. Mepilex dressing is placed on this. The sacral wound is prepped and draped in the usual sterile fashion is a Betadine scrub solution. Infiltrated 40 cc of mixed 1% and quarter percent Marcaine. 1/2 inch x 1 inch area has open draining sinuses that are draining purulent material. This is removed first. And the wound is colored. There is a significant amount of purulent drainage. Approximately 200 cc. Cultures are taken. The wound is then extended to move all non-healthy tissue and ends up being 3 inches long by 2 inches wide. A curette was used to sharply debride the underlying necrotic tissue. The wound does extend down to the bone. And there is a significant amount of bleeding. Electrocautery was used to provide hemostasis. FloSeal and Gelfoam was applied and the wound was packed with Kerlix. Because of the bleeding still from the Eliquis and decided to do not any further debridement today we will bring him back tomorrow once Eliquis has had more time to degrade, and explore the wound do further treatment. Patient tolerated procedure well with no complication and transferred to PACU in stable condition. Final size of the wound appears to be 12 inches long by 8 inches wide by inch deep and does extend all the way down to the bone.
[2019-07-25] MEDS: Acetaminophen 500 MG TAB 1000 MG PO ×2 (14:01→23:42)
[2019-07-25 18:12] LABS: HCT 30.8 % (40.0-50.0); HGB 9.1 g/dL (13.5-17.5)
[2019-07-25] MEDS: Magnesium Chloride 64 MG TABCR PO (18:20)
[2019-07-25] MEDS: Calcium 600mg/Vit D 200U TAB 1 TAB PO (18:20)
[2019-07-25] MEDS: VANCOMYCIN 1,000 MG in Normal Saline 250 ML 166.667 MG IV (18:53)
[2019-07-25] MEDS: Ascorbic Acid 500 MG TAB 250 MG PO (19:32)
[2019-07-25] MEDS: Terazosin 2 MG CAP 4 MG PO (19:32)
[2019-07-25] MEDS: Ferrous Sulfate 325 MG TAB PO (19:33)
[2019-07-25] MEDS: Gabapentin 300 MG CAP PO (19:33)
[2019-07-25] MEDS: Sodium Bicarbonate 650 MG TAB PO (19:33)
[2019-07-25] MEDS: Nystatin POWDER 15 GM JAR TP (20:28)
[2019-07-25] MEDS: Levothyroxine 25 MCG TAB 12.5 MCG PO (23:42)
[2019-07-25] MEDS: risperiDONE 0.5 MG TAB 1.5 MG PO (23:43)
[2019-07-25] MEDS: Melatonin 3 MG TAB 6 MG PO (23:43)
[2019-07-26] VITALS (16 sets, daily range): BP systolic 119–159; BP diastolic 54–89; PULSE 43–56; RESP 1–20; TEMP 34.7–36.5; O2SAT 94–100
[2019-07-26] MEDS: Normal Saline 1,000 ML 100 ML IV ×3 (05:53→21:00)
[2019-07-26] MEDS: Hydrocortisone SOD SUC. 100 MG VIAL IVP (05:54)
[2019-07-26] MEDS: Insulin NPH-Human 300 UNITS/3 ML PEN 50 UNIT SC ×3 (05:54→22:04)
[2019-07-26 07:10] LABS: Abs Immature Grans 0.89 k/cumm (0.0-0.09); HCT 31.2 % (40.0-50.0); HGB 9.3 g/dL (13.5-17.5); Mean Corp. HGB Concentration 29.8 g/dL (32.0-36.0); Mean Corpuscular Hemoglobin 21.7 pg (27.0-33.0); Mean Corpuscular Volume 72.7 fL (80-95); Mean Platelet Volume 10.4 fL (8.0-11.0); Platelet Count 381 x1000/uL (130-400); RBC 4.29 m/cumm (4.50-6.00); RBC Distribution Width 15.7 % (11.8-14.1)
[2019-07-26 07:22] LABS: Anion Gap 5.6 mmol/L (3-11); BUN 53 mg/dL (7-18); C-Reactive Protein 4.84 mg/dL (0.0-0.3); CO2 25.4 mmol/L (21.0-32.0); CREATININE 2.33 mg/dL (0.70-1.30); Calcium 9.3 mg/dL (8.5-10.1); Chloride 102 mmol/L (98-107); Estimated GFR 28.72 (mL/min/1.73m2); Glucose 347 mg/dL (74-106); Magnesium 2.3 mg/dL (1.8-2.4); Potassium 5.5 mmol/L (3.5-5.1); Sodium 133 mmol/L (136-145)
[2019-07-26 07:39] LABS: Absolute Lymphocyte Count 0.82 k/cumm (1.2-3.4); Absolute Monocyte Count 0.35 k/cumm (0.11-0.7); Absolute Neutrophil Count 10.06 k/cumm (1.2-6.7)
[2019-07-26 07:40] LABS: Anisocytosis 1+; Basophilic Stippling Present; Diff Comment Manual Differential; Hypochromasia 1+; Microcytosis 2+; Ovalocytes 2+; Polychromasia Present; Procalcitonin 0.6 ng/mL
[2019-07-26 07:41] LABS: Poikilocytes 2+
[2019-07-26] MEDS: PIPERACILLIN/TAZO 4.5 GM in Normal Saline 100 ML IVPB ×3 (08:27→23:44)
[2019-07-26] MEDS: amLODIPine 5 MG TAB 10 MG PO (08:29)
[2019-07-26] MEDS: predniSONE 1 MG TAB 3 MG PO (08:29)
[2019-07-26] MEDS: predniSONE 10 MG TAB PO (08:29)
[2019-07-26] MEDS: Insulin Aspart 300 UNITS/3 ML PEN SC ×3 (08:29→21:57)
[2019-07-26] MEDS: cloNIDine 0.1 MG TAB PO ×3 (08:29→20:14)
[2019-07-26] MEDS: MORPHine 2 MG/ML SYR IVP ×2 (09:22→21:53)
--- NOTE | 2019-07-26 09:57 | PDOC.CMPRO ---
- If Service Date Differs Date of service: 07/26/19 Time of Service: 09:57 Care Management Progress Note S/O:Brendan was lying in bed when CM came to see him. He had just returned from surgery and was very groggy. Brendan underwent debridement of a large sacral ulcer with abscess today. Per Dr. Webb, he will need at least 10 days of IV antibiotics. If there is a bacteremia associated with this infection, he will likely need at least 6 weeks of antibiotics. Brendan is bradycardic but otherwise his vital signs are stable, he is afebrile and his WBC is normalizing. A; Own is a 59 year old man admitted from the [facility] on 07/24/19 with UTI and a sacral ulcer P: Brendan will return to the [facility] when medically stable . He will follow up with his provider there. Brendan will likely transport via [facility] w/c van coordinated by CM. CM will continue to support Brendan and discharge planning needs.
--- NOTE | 2019-07-26 10:09 | W.PM.PROGNOT ---
Date of Service Date of service: 07/26/19 Time of Service: 10:09 Assessment and Plan Assessment and plan (1) Protein-calorie malnutrition, mild: Status: Acute (2) Decubitus ulcer of sacral region, stage 4: Status: Acute Assessment and plan: debridement and wound vac placement risk: AL/CVA/aspiration/pneumonia/others this will requiring prolonged healing and will take 3-6months if it does at all. Most likely this will be a chronic wound given pt co-morbitities and lack of ability to participate in cares -infected w/ MRSA. will need 10 days of IV abx. -blood cults show gram - Awaiting final results. May require longer for gram negatives. -keep hgb above 10 -try to optimize albumin -tight control of blood sugars -pt needs mattress to aid in pressure releif. -turn ever 2 hrs -pt should no longer be on anticoags. -poor [employer] prognosis (3) Ileostomy in place: Status: Acute (4) MRSA colonization: Status: Chronic (5) Acute kidney injury superimposed on chronic kidney disease: Status: Acute (6) Acute on chronic diastolic heart failure: Status: Acute (7) UTI (urinary tract infection): Status: Resolved (8) Atrial flutter, paroxysmal: Status: Chronic (9) Diabetes mellitus: Status: Chronic Qualifiers: Diabetes mellitus type: type 2 Diabetes mellitus [employer] insulin use: with fpc use Diabetes mellitus complication status: with neurologic complications Diabetes mellitus complication detail: with polyneuropathy Qualified Code(s): E11.42 - Type 2 diabetes mellitus with diabetic polyneuropathy; Z79.4 - jail (current) use of insulin (10) Ambulatory dysfunction: Status: Chronic (11) Dehydration: Status: Resolved (12) Adrenal insufficiency: Status: Chronic (13) Poorly controlled type 2 diabetes mellitus with circulatory disorder: Status: Chronic (14) Chronic pain: Status: Chronic (15) Hypertension: Status: Chronic Qualifiers: Hypertension type: essential hypertension Qualified Code(s): I10 - Essential (primary) hypertension (16) Inability to get out of bed: Status: Chronic (17) Poor self care: Status: Chronic (18) Chronic bipolar disorder: Status: Chronic (19) CAD (coronary artery disease): Status: Chronic (20) Rheumatoid arthritis: Status: Chronic (21) Cholelithiasis: Status: Chronic Subjective Subjective Interval history since last seen: pt is doing OK Pain is controlled. pt will go to OR today for second look of his wound and eval for remaining necrotic tissue. pt had to much bleeding to safely proceed yesterday. Will place wound vac today. will assess necessity for bone bx. hgb stable risk: transfusion requirement. prolonged healing. complications from anesthesia. Exam Resp Effort & Inspection: normal respiratory effort, able to speak in complete sentences and no cough Auscultation: clear to auscultation bilaterally Cardio Rate: regular rate and other Rhythm: other (chronic a fib ) Other: no cp/sob/cough GI Other: no pain Skin Other: will eval wound in OR Objective Objective Clinical Data: Abnormal lab results 07/24/19 07/25/19 07/25/19 Range/Units 18:00 06:37 18:00 WBC (4.4-10.8) k/cumm RBC (4.50-6.00) m/cumm Hgb 9.1 L (13.5-17.5) g/dL Hct 30.8 L (40.0-50.0) % MCV (80-95) fL MCH (27.0-33.0) pg MCHC (32.0-36.0) g/dL RDW (11.8-14.1) % Absolute Neutrophils (1.2-6.7) k/cumm Absolute Lymphocytes (1.2-3.4) k/cumm Sodium (136-145) mmol/L Potassium (3.5-5.1) mmol/L BUN (7-18) mg/dL Creatinine (0.70-1.30) mg/dL Glucose (74-106) mg/dL Iron 14 L (65-175) ug/dL TIBC 154 L (250-450) ug/dL C-Reactive Protein 10.39 H (0.0-0.3) mg/dL 07/26/19 07/26/19 Range/Units 06:45 06:45 WBC 11.70 H D (4.4-10.8) k/cumm RBC 4.29 L (4.50-6.00) m/cumm Hgb 9.3 L (13.5-17.5) g/dL Hct 31.2 L (40.0-50.0) % MCV 72.7 L (80-95) fL MCH 21.7 L (27.0-33.0) pg MCHC 29.8 L (32.0-36.0) g/dL RDW 15.7 H (11.8-14.1) % Absolute Neutrophils 10.06 H (1.2-6.7) k/cumm Absolute Lymphocytes 0.82 L (1.2-3.4) k/cumm Sodium 133 L (136-145) mmol/L Potassium 5.5 H (3.5-5.1) mmol/L BUN 53 H (7-18) mg/dL Creatinine 2.33 H (0.70-1.30) mg/dL Glucose 347 H D (74-106) mg/dL Iron (65-175) ug/dL TIBC (250-450) ug/dL C-Reactive Protein 4.84 H (0.0-0.3) mg/dL Vital Signs Temperature 35.0 C L 07/26/19 07:45 Temperature Source Tympanic 07/26/19 07:45 Pulse 45 L 07/26/19 07:45 Pulse Rhythm Regular 07/26/19 02:17 Pulse 69 07/24/19 21:40 Respiratory Rate 18 07/26/19 07:45 Respiratory Effort Non-Labored 07/26/19 02:17 Respiratory Depth Normal 07/26/19 02:17 Respiratory Pattern Normal 07/26/19 02:17 Blood Pressure 159/68 H 07/26/19 07:45 Blood Pressure Mean 77 07/24/19 21:31 Blood Pressure Position Supine 07/24/19 17:19 Pulse Oximetry 99 07/26/19 07:45 Oxygen Delivery Method Nasal Cannula 07/26/19 07:45 Oxygen Flow Rate 1 07/26/19 08:00 Pain Level 7 07/26/19 09:22 Comment 07/26/19 03:33 Intake & Output 07/25/19 07/25/19 07/26/19 11:59 23:59 11:59 Intake Total 1460 / 3381.667 1921.667 / 3381.667 288.333 / 288.333 Output Total 750 / 1825 1075 / 1825 800 / 800 Balance 710 / 1556.667 846.667 / 1556.667 -511.667 / -511.667 Weight 97.9 kg 97.3 kg Intake: IV 1460 / 3131.667 1671.667 / 3131.667 288.333 / 288.333 Oral 250 / 250 Output: Urine 650 / 1075 425 / 1075 650 / 650 Stool 100 / 650 550 / 650 150 / 150 Estimated Blood Loss 100 / 100 Other: Urine Color Yellow Yellow Yellow Urine Appearance Clear Clear Clear Urine Odor Normal Normal Normal Stool Size Small Small Stool Characteristics Soft Soft Soft Liquid Brown Brown Voiding Methods Urinal Urinal Urinal Laboratory Results WBC 11.70 k/cumm (4.4-10.8) H D 07/26/19 06:45 RBC 4.29 m/cumm (4.50-6.00) L 07/26/19 06:45 Hgb 9.3 g/dL (13.5-17.5) L 07/26/19 06:45 Hct 31.2 % (40.0-50.0) L 07/26/19 06:45 MCV 72.7 fL (80-95) L 07/26/19 06:45 MCH 21.7 pg (27.0-33.0) L 07/26/19 06:45 MCHC 29.8 g/dL (32.0-36.0) L 07/26/19 06:45 RDW 15.7 % (11.8-14.1) H 07/26/19 06:45 Plt Count 381 x1000/uL (130-400) 07/26/19 06:45 MPV 10.4 fL (8.0-11.0) 07/26/19 06:45 Immature Gran % See Differential 07/26/19 06:45 Neutrophils % 80.0 07/26/19 06:45 Band Neutrophils % 6.0 % 07/26/19 06:45 Lymphocytes % 7.0 07/26/19 06:45 Monocytes % 3.0 07/26/19 06:45 Eosinophils % 0.0 07/26/19 06:45 Basophils % 0.0 07/26/19 06:45 Metamyelocytes % 4.0 % 07/26/19 06:45 Absolute Neutrophils 10.06 k/cumm (1.2-6.7) H 07/26/19 06:45 Absolute Lymphocytes 0.82 k/cumm (1.2-3.4) L 07/26/19 06:45 Absolute Monocytes 0.35 k/cumm (0.11-0.7) 07/26/19 06:45 Absolute Eosinophils 0.00 k/cumm (0.0-0.7) 07/26/19 06:45 Absolute Basophils 0.00 k/cumm (0.0-0.2) 07/26/19 06:45 Differential Comment Manual differential 07/26/19 06:45 RBC Morphology See below 07/26/19 06:45 Polychromasia Present 07/26/19 06:45 Hypochromasia 1+ 07/26/19 06:45 Poikilocytosis 2+ 07/26/19 06:45 Basophilic Stippling Present 07/26/19 06:45 Anisocytosis 1+ 07/26/19 06:45 Microcytosis 2+ 07/26/19 06:45 Ovalocytes 2+ 07/26/19 06:45 ESR 55 mm/hr (1-20) H 07/24/19 18:10 PT 10.8 sec (9.3-11.0) 07/24/19 18:10 INR 1.1 (0.9-1.1) 07/24/19 18:10 APTT 26.4 sec (21.0-31.4) 07/24/19 18:10 Sodium 133 mmol/L (136-145) L 07/26/19 06:45 Potassium 5.5 mmol/L (3.5-5.1) H 07/26/19 06:45 Chloride 102 mmol/L (98-107) 07/26/19 06:45 Carbon Dioxide 25.4 mmol/L (21.0-32.0) 07/26/19 06:45 Anion Gap 5.6 mmol/L (3-11) 07/26/19 06:45 BUN 53 mg/dL (7-18) H 07/26/19 06:45 Creatinine 2.33 mg/dL (0.70-1.30) H 07/26/19 06:45 Estimated GFR/1.73 m2 28.72 (mL/min/1.73m2) 07/26/19 06:45 Glucose 347 mg/dL (74-106) H D 07/26/19 06:45 Lactate 1.0 mmol/L (0.6-1.4) 07/24/19 18:10 Calcium 9.3 mg/dL (8.5-10.1) 07/26/19 06:45 Magnesium 2.3 mg/dL (1.8-2.4) 07/26/19 06:45 Iron 14 ug/dL (65-175) L 07/24/19 18:00 TIBC 154 ug/dL (250-450) L 07/24/19 18:00 Ferritin 369 ng/mL (26-388) 07/25/19 06:37 Total Bilirubin 0.3 mg/dL (0.2-1.0) 07/25/19 06:37 AST 8 U/L (15-37) L 07/25/19 06:37 ALT 13 U/L (16-63) L 07/25/19 06:37 Alkaline Phosphatase 117 U/L (46-116) H 07/25/19 06:37 C-Reactive Protein 4.84 mg/dL (0.0-0.3) H 07/26/19 06:45 Total Protein 6.6 g/dL (6.4-8.2) 07/25/19 06:37 Albumin 2.2 g/dL (3.4-5.0) L 07/25/19 06:37 Procalcitonin 0.6 ng/mL 07/26/19 06:45 TSH 0.28 uIU/mL (0.36-3.74) L 07/24/19 18:10 Free T4 1.20 ng/dL (0.76-1.46) 07/24/19 18:10 Urine Color Yellow (Yellow) 07/24/19 18:40 Urine Clarity Cloudy (Clear) 07/24/19 18:40 Urine pH 6.0 (5-8) 07/24/19 18:40 Ur Specific [place] 1.010 (1.005-1.025) 07/24/19 18:40 Urine Protein 30 mg/dL (Negative) H 07/24/19 18:40 Urine Ketones Negative mg/dL (Negative) 07/24/19 18:40 Urine Blood Moderate (Negative) H 07/24/19 18:40 Urine Nitrite Positive (Negative) H 07/24/19 18:40 Urine Bilirubin Negative (Negative) 07/24/19 18:40 Urine Urobilinogen 0.2 EU/dL (Up TO 0.2) 07/24/19 18:40 Ur Leukocyte Esterase Moderate (Negative) H 07/24/19 18:40 Urine RBC Not Applicable 07/24/19 18:40 Urine WBC >50 HPF (0-5) H 07/24/19 18:40 Ur Epithelial Cells Not Applicable 07/24/19 18:40 Urine Crystals Not Applicable 07/24/19 18:40 Urine Bacteria HPF (Negative) 07/24/19 18:40 Urine Mucus Not Applicable 07/24/19 18:40 Ur Culture Indicated? Yes 07/24/19 18:40 Urine Glucose >=1000 mg/dL (Negative) H 07/24/19 18:40 COVID-19 PCR Negative (Negative) 07/24/19 21:45 Nasopharyn COVID-19 PCR Not Applicable 07/24/19 21:45 Ref Test Perform Site [facility] lab 07/24/19 21:45 Patient ABO/Rh AB Negative 07/25/19 10:55 Antibody Screen Negative 07/25/19 10:55
--- NOTE | 2019-07-26 10:24 | W.PM.PROGNOT ---
Date of Service Date of service: 07/26/19 Time of Service: 10:25 Assessment and Plan Assessment and plan (1) Pressure ulcer, sacrum: Start date: 07/26/19 Start time: 10:34 Status: Acute Assessment and plan: Plan for return to OR with Dr. Conway today for further debridement and bone bx. . Eliquis on hold, Surgical culture positive for MRSA staph, currently on vanco and zosyn, awaiting for sensitivities. Blood culture from 07/23 growing positive cocci in clusters. Will repeat blood cutlures for agusto Qualifiers: Pressure injury stage: stage 1 Qualified Code(s): L89.151 - Pressure ulcer of sacral region, stage 1 (2) UTI (urinary tract infection): Start date: 07/26/19 Start time: 10:40 Status: Acute Assessment and plan: Positive nitrates with moderate leukocyte Esterase found prior to admission. Placed on zosyn by Dr. Conway for wound will D/C rocephin as this will cover Urinary and wound. Gram negative rods in urine culture Qualifiers: Urinary tract infection type: site unspecified Hematuria presence: without hematuria Qualified Code(s): N39.0 - Urinary tract infection, site not specified (3) Acute kidney injury superimposed on chronic kidney disease: Start date: 07/26/19 Start time: 10:41 Status: Acute Assessment and plan: Patient does have chronic CKD. IVF at 100, hold lasix po. BUN, Creatinine appears baseline by review of labs. Continue to monitor daily BMP (4) Acute adrenal insufficiency: Start date: 07/26/19 Start time: 10:42 Status: Chronic Assessment and plan: Patient has a history of adrenal insufficiency will be given stress steroids IV during his hospital stay. Wean down IV steroids to 75 mg every 12. Labs are improving Will also continue prednisone while on stress steroids, per records they are trying to wean down steroids will continue 13 mg dose and monitor for improvement. (5) Poorly controlled type 2 diabetes mellitus with circulatory disorder: Start date: 07/26/19 Start time: 10:44 Status: Chronic Assessment and plan: Glucometers before meals and at bedtime with short acting insulin coverage for meals and bedtime with a higher dose and the patient's Lantus to be held for now while acutely ill. Will also add NPH for stress dose steroid coverage for better glucose control. (6) CHF (congestive heart failure): Start date: 07/26/19 Start time: 10:44 Status: Chronic Assessment and plan: History of CHF, does not appear volume overloaded, continue telemetry, continue home meds. Heart healthy, low potassium, low carb diet. (7) Hypothyroidism: Start date: 07/26/19 Start time: 10:44 Status: Chronic Assessment and plan: TSH 0.28, however free t4 1.20, continue current dose levothyroxine Qualifiers: Hypothyroidism type: acquired Qualified Code(s): E03.9 - Hypothyroidism, unspecified (8) DVT prophylaxis: Start date: 07/26/19 Start time: 10:44 Status: Acute Assessment and plan: Currently on Eliquis po BID for afib however on hold due to procedure. (9) Hypomagnesemia: Start date: 07/26/19 Start time: 10:44 Status: Resolved Assessment and plan: 2.3 by morning labs will continue to monitor. (10) CAD (coronary artery disease): Start date: 07/26/19 Start time: 10:45 Status: Chronic Assessment and plan: Continue BB, CCB (11) Rheumatoid arthritis: Start date: 07/26/19 Start time: 10:45 Status: Chronic Assessment and plan: Severe RA, on prednisone daily for RA, see adrenal insufficiency above. Above case discussed with Dr. Fisher who is in agreement. Subjective Subjective Interval history since last seen: Having pain today. Return to OR for debridement with Dr. Conway and bone bx. He will likely have a wound vac to wound. He used trilogy over night. He denies Cp, SOB, N/V/D. His electrolytes are starting to normal. Continue to monitor. Exam Const General: cooperative and ill appearing chronically Nutritional Appearance: obese Orientation: alert, awake and oriented x3 HENMT Head: normal to inspection, normocephalic and atraumatic Resp Effort & Inspection: able to speak in complete sentences, abnormal respiratory pattern and other (requiring oxygen) Auscultation: clear to auscultation bilaterally Cardio Jugular venous pressure: no JVD Rate: abnormal rate Rhythm: abnormal rhythm GI Inspection: obesity Palpation: soft and no hepatosplenomegaly Auscultation: normal bowel sounds Back/Spine/Pelvis Back: no CVA tenderness Thoracic/Lumbar Spine: thoracic and lumbar spine normal to inspection Sacrum: other (wound with drainage, blanchable, discolored.) Other: drsg to back/sacrum from debridement. D/I Skin General skin exam: dry skin and excoriation (rectal area) Neuro General: patient alert, patient awake and patient oriented x3 Extrem General: pedal edema present (1+ to right foot.) Objective Objective Clinical Data: Abnormal lab results 07/24/19 07/25/19 07/25/19 Range/Units 18:00 06:37 18:00 WBC (4.4-10.8) k/cumm RBC (4.50-6.00) m/cumm Hgb 9.1 L (13.5-17.5) g/dL Hct 30.8 L (40.0-50.0) % MCV (80-95) fL MCH (27.0-33.0) pg MCHC (32.0-36.0) g/dL RDW (11.8-14.1) % Absolute Neutrophils (1.2-6.7) k/cumm Absolute Lymphocytes (1.2-3.4) k/cumm Sodium (136-145) mmol/L Potassium (3.5-5.1) mmol/L BUN (7-18) mg/dL Creatinine (0.70-1.30) mg/dL Glucose (74-106) mg/dL Iron 14 L (65-175) ug/dL TIBC 154 L (250-450) ug/dL C-Reactive Protein 10.39 H (0.0-0.3) mg/dL 07/26/19 07/26/19 Range/Units 06:45 06:45 WBC 11.70 H D (4.4-10.8) k/cumm RBC 4.29 L (4.50-6.00) m/cumm Hgb 9.3 L (13.5-17.5) g/dL Hct 31.2 L (40.0-50.0) % MCV 72.7 L (80-95) fL MCH 21.7 L (27.0-33.0) pg MCHC 29.8 L (32.0-36.0) g/dL RDW 15.7 H (11.8-14.1) % Absolute Neutrophils 10.06 H (1.2-6.7) k/cumm Absolute Lymphocytes 0.82 L (1.2-3.4) k/cumm Sodium 133 L (136-145) mmol/L Potassium 5.5 H (3.5-5.1) mmol/L BUN 53 H (7-18) mg/dL Creatinine 2.33 H (0.70-1.30) mg/dL Glucose 347 H D (74-106) mg/dL Iron (65-175) ug/dL TIBC (250-450) ug/dL C-Reactive Protein 4.84 H (0.0-0.3) mg/dL Vital Signs Temperature 35.0 C L 07/26/19 07:45 Temperature Source Tympanic 07/26/19 07:45 Pulse 45 L 07/26/19 07:45 Pulse Rhythm Regular 07/26/19 02:17 Pulse 69 07/24/19 21:40 Respiratory Rate 18 07/26/19 07:45 Respiratory Effort Non-Labored 07/26/19 02:17 Respiratory Depth Normal 07/26/19 02:17 Respiratory Pattern Normal 07/26/19 02:17 Blood Pressure 159/68 H 07/26/19 07:45 Blood Pressure Mean 77 07/24/19 21:31 Blood Pressure Position Supine 07/24/19 17:19 Pulse Oximetry 99 07/26/19 07:45 Oxygen Delivery Method Nasal Cannula 07/26/19 07:45 Oxygen Flow Rate 1 07/26/19 08:00 Pain Level 7 07/26/19 10:17 Comment 07/26/19 03:33 Intake & Output 07/25/19 07/25/19 07/26/19 11:59 23:59 11:59 Intake Total 1460 / 3381.667 1921.667 / 3381.667 288.333 / 288.333 Output Total 750 / 1825 1075 / 1825 800 / 800 Balance 710 / 1556.667 846.667 / 1556.667 -511.667 / -511.667 Weight 97.9 kg 97.3 kg Intake: IV 1460 / 3131.667 1671.667 / 3131.667 288.333 / 288.333 Oral 250 / 250 Output: Urine 650 / 1075 425 / 1075 650 / 650 Stool 100 / 650 550 / 650 150 / 150 Estimated Blood Loss 100 / 100 Other: Urine Color Yellow Yellow Yellow Urine Appearance Clear Clear Clear Urine Odor Normal Normal Normal Stool Size Small Small Stool Characteristics Soft Soft Soft Liquid Brown Brown Voiding Methods Urinal Urinal Urinal Laboratory Results WBC 11.70 k/cumm (4.4-10.8) H D 07/26/19 06:45 RBC 4.29 m/cumm (4.50-6.00) L 07/26/19 06:45 Hgb 9.3 g/dL (13.5-17.5) L 07/26/19 06:45 Hct 31.2 % (40.0-50.0) L 07/26/19 06:45 MCV 72.7 fL (80-95) L 07/26/19 06:45 MCH 21.7 pg (27.0-33.0) L 07/26/19 06:45 MCHC 29.8 g/dL (32.0-36.0) L 07/26/19 06:45 RDW 15.7 % (11.8-14.1) H 07/26/19 06:45 Plt Count 381 x1000/uL (130-400) 07/26/19 06:45 MPV 10.4 fL (8.0-11.0) 07/26/19 06:45 Immature Gran % See Differential 07/26/19 06:45 Neutrophils % 80.0 07/26/19 06:45 Band Neutrophils % 6.0 % 07/26/19 06:45 Lymphocytes % 7.0 07/26/19 06:45 Monocytes % 3.0 07/26/19 06:45 Eosinophils % 0.0 07/26/19 06:45 Basophils % 0.0 07/26/19 06:45 Metamyelocytes % 4.0 % 07/26/19 06:45 Absolute Neutrophils 10.06 k/cumm (1.2-6.7) H 07/26/19 06:45 Absolute Lymphocytes 0.82 k/cumm (1.2-3.4) L 07/26/19 06:45 Absolute Monocytes 0.35 k/cumm (0.11-0.7) 07/26/19 06:45 Absolute Eosinophils 0.00 k/cumm (0.0-0.7) 07/26/19 06:45 Absolute Basophils 0.00 k/cumm (0.0-0.2) 07/26/19 06:45 Differential Comment Manual differential 07/26/19 06:45 RBC Morphology See below 07/26/19 06:45 Polychromasia Present 07/26/19 06:45 Hypochromasia 1+ 07/26/19 06:45 Poikilocytosis 2+ 07/26/19 06:45 Basophilic Stippling Present 07/26/19 06:45 Anisocytosis 1+ 07/26/19 06:45 Microcytosis 2+ 07/26/19 06:45 Ovalocytes 2+ 07/26/19 06:45 ESR 55 mm/hr (1-20) H 07/24/19 18:10 PT 10.8 sec (9.3-11.0) 07/24/19 18:10 INR 1.1 (0.9-1.1) 07/24/19 18:10 APTT 26.4 sec (21.0-31.4) 07/24/19 18:10 Sodium 133 mmol/L (136-145) L 07/26/19 06:45 Potassium 5.5 mmol/L (3.5-5.1) H 07/26/19 06:45 Chloride 102 mmol/L (98-107) 07/26/19 06:45 Carbon Dioxide 25.4 mmol/L (21.0-32.0) 07/26/19 06:45 Anion Gap 5.6 mmol/L (3-11) 07/26/19 06:45 BUN 53 mg/dL (7-18) H 07/26/19 06:45 Creatinine 2.33 mg/dL (0.70-1.30) H 07/26/19 06:45 Estimated GFR/1.73 m2 28.72 (mL/min/1.73m2) 07/26/19 06:45 Glucose 347 mg/dL (74-106) H D 07/26/19 06:45 Lactate 1.0 mmol/L (0.6-1.4) 07/24/19 18:10 Calcium 9.3 mg/dL (8.5-10.1) 07/26/19 06:45 Magnesium 2.3 mg/dL (1.8-2.4) 07/26/19 06:45 Iron 14 ug/dL (65-175) L 07/24/19 18:00 TIBC 154 ug/dL (250-450) L 07/24/19 18:00 Ferritin 369 ng/mL (26-388) 07/25/19 06:37 Total Bilirubin 0.3 mg/dL (0.2-1.0) 07/25/19 06:37 AST 8 U/L (15-37) L 07/25/19 06:37 ALT 13 U/L (16-63) L 07/25/19 06:37 Alkaline Phosphatase 117 U/L (46-116) H 07/25/19 06:37 C-Reactive Protein 4.84 mg/dL (0.0-0.3) H 07/26/19 06:45 Total Protein 6.6 g/dL (6.4-8.2) 07/25/19 06:37 Albumin 2.2 g/dL (3.4-5.0) L 07/25/19 06:37 Procalcitonin 0.6 ng/mL 07/26/19 06:45 TSH 0.28 uIU/mL (0.36-3.74) L 07/24/19 18:10 Free T4 1.20 ng/dL (0.76-1.46) 07/24/19 18:10 Urine Color Yellow (Yellow) 07/24/19 18:40 Urine Clarity Cloudy (Clear) 07/24/19 18:40 Urine pH 6.0 (5-8) 07/24/19 18:40 Ur Specific [place] 1.010 (1.005-1.025) 07/24/19 18:40 Urine Protein 30 mg/dL (Negative) H 07/24/19 18:40 Urine Ketones Negative mg/dL (Negative) 07/24/19 18:40 Urine Blood Moderate (Negative) H 07/24/19 18:40 Urine Nitrite Positive (Negative) H 07/24/19 18:40 Urine Bilirubin Negative (Negative) 07/24/19 18:40 Urine Urobilinogen 0.2 EU/dL (Up TO 0.2) 07/24/19 18:40 Ur Leukocyte Esterase Moderate (Negative) H 07/24/19 18:40 Urine RBC Not Applicable 07/24/19 18:40 Urine WBC >50 HPF (0-5) H 07/24/19 18:40 Ur Epithelial Cells Not Applicable 07/24/19 18:40 Urine Crystals Not Applicable 07/24/19 18:40 Urine Bacteria HPF (Negative) 07/24/19 18:40 Urine Mucus Not Applicable 07/24/19 18:40 Ur Culture Indicated? Yes 07/24/19 18:40 Urine Glucose >=1000 mg/dL (Negative) H 07/24/19 18:40 COVID-19 PCR Negative (Negative) 07/24/19 21:45 Nasopharyn COVID-19 PCR Not Applicable 07/24/19 21:45 Ref Test Perform Site [facility] lab 07/24/19 21:45 Patient ABO/Rh AB Negative 07/25/19 10:55 Antibody Screen Negative 07/25/19 10:55
--- NOTE | 2019-07-26 11:37 | W.NUTRFU ---
Date of service: 07/26/19 Time of Service: 11:37 Nutritional Follow up NOTE: Attempted to visit Brendan today but out of room. Diabetes Education consult received. Recommend Active Liquid Protein 30 ml TID for stage 4 sacral wound, will also provide double protein at meals as with increased nutrient needs for optimal healing. Will visit when available. Time Spent in Nutritional Counseling and Treatment: 0 time spent
--- NOTE | 2019-07-26 12:28 | NUR.NOTE ---
Nursing Note: 1030 pt taken to PACU preop area via bed, contact precautions maintained, mask on pt. Report given to Kimberly RN. oxygen at 2LNC continues.
--- NOTE | 2019-07-26 13:07 | BOWEL_PTH ---
PATIENT: CARMITA ROMAN LOC: U#:[id number] AGE/SX: 59/M ROOM: RE07/24/[address]: Chance May : 1960 BED: A DIS: 08/11/2019 SPEC #: [id number] RECD: 07/26/19 14:48 STATUS: DALIA REQ #: [id number] SEA: 07/26/19 13:[address]: Chance Fragoso DEPT: Surgical Specimen RECD BY: Pau Thomason ENTERED: 07/26/19 14:49 SP TYPE: Bowel OTHR DR: Lou Maldonado Laura M Tissues: 1 - BIOPSY BOWEL 2 - BIOPSY BOWEL Procedures: GROSS AND MICRO LEVEL 4 GROSS AND MICRO LEVEL 5 Comments: [id number]
[2019-07-26] MEDS: Gelatin SPONGE 12-7 MM PKT 1 EACH TP (13:25)
--- NOTE | 2019-07-26 13:51 | ROE_ITS ---
Date of service: 07/26/19 Time of Service: 13:52 Operative Note Operative Note DATE OF PROCEDURE: 07/25/19 PRE-OP DIAGNOSIS: abscess/sacral wound stage 4 POST-OP DIAGNOSIS: other (infected decubitus/sacral ulcer w/ abscess. stage 4) PROCEDURE: I & D of sacral decub SURGEON: Lela Webb ANESTHESIA: MAC ESTIMATED BLOOD LOSS: 20 PATHOLOGY: other Patient was transported to: floor Implants: I & D of sacral decub Procedure Description: Patient is brought back today for a second look at his infected decubitus ulcer. He had some bleeding yesterday that we decided to pack and abandon the procedure today patient agrees to the procedure Second Look evaluation and removal of any necrotic tissue and placement of a wound VAC. Risks include complications of anesthesia mostly and possible need for blood transfusion. Patient is brought brought back to the operative room suite and placed in semi-Fowlers position on the right side. Timeout is performed. Anesthesia is administered. Per the department of anesthesia the old packing is removed. He had good hemostasis last evening. The wound is prepped draped in sterile fashion using Betadine scrub solution. He is on antibiotics. The wound is explored. There is another small pocket towards the right side and this is opened up. There is a little bit of necrotic tissue medicine trimmed away using sharp excisional electrocautery and a curette. The site where his proctectomy was done appears boggy and edematous and almost feels like this area is trying to open up again. There is a lot of necrotic and generally unhealthy tissue in this area. I do even find some tissue around an old clip that is removed. The 6 tissue was sent for pathologic evaluation. The tissue that was around the clip site is sent separately. It does not appear to be overtly malignant. But it has a uncharacteristic feel to it. Electrocautery is used to provide hemostasis. There are 2 areas where he continues to have bleeding and these are oversewn with 2-0 Vicryl. The wound is then irrigated with 3 L of saline bone to the sacrum does feel intact and there does not seem to be any signs of osteo- . Biopsy is not as periosteum is intact and I did not want to see the bone. There is just some generalized ooze at the completion daily evaluation. I did not feel safe to place a wound VAC at this time. 4 pieces of Gelfoam were placed in the wound again and it is packed with Kerlix and sterile dressings are applied. Patient tolerated procedure well complication transferred to recovery room in stable condition. Results were discussed with the hospitalist. The wound is now 8 x 14 x 2 inches. He did grow MRSA. I do not think it is into sacrum. However there is some irregularity in the area of where the rectum was previously located. This tissue was sent for pathologic evaluation for malignancy. Patient insists that he had Crohn's disease and not ulcerative colitis. His surgery was done 35 years ago at [facility]. We will see if we can get the records from this procedure
[2019-07-26] MEDS: VANCOMYCIN 1,000 MG in Normal Saline 250 ML 166.667 MG IV (14:15)
[2019-07-26] MEDS: Acetaminophen 500 MG TAB 1000 MG PO ×2 (14:50→21:52)
[2019-07-26] MEDS: Gabapentin 300 MG CAP PO ×2 (14:50→20:15)
--- NOTE | 2019-07-26 15:23 | PHACLINREV_ITS ---
Pharmacy Admission Review - Admission Clinical Review (Last Updated 07/26/19 @ 14:02 by Lela Webb DO) Protein-calorie malnutrition, mild (Acute) Decubitus ulcer, stage 4 with infection (Acute) Decubitus ulcer of sacral region, stage 4 (Acute) S/P proctocolectomy (Acute) Ileostomy in place (Acute) UTI (urinary tract infection) (Acute) DVT prophylaxis (Acute) Acute kidney injury superimposed on chronic kidney disease (Acute) Acute on chronic diastolic heart failure (Acute) Pressure ulcer, sacrum (Acute) lisinopril Allergy (Unverified 07/24/19 17:47) Height 6 ft 1 in Weight 97.3 kg - Renal Dosing Renal Dosing: BUN 53 mg/dL (7-18) H 07/26/19 06:45 Creatinine 2.33 mg/dL (0.70-1.30) H 07/26/19 06:45 Medications needing adjustments: Reviewed (Crcl ~38 mL/min current meds okay) - Anticoagulation Anticoagulation: Hgb 9.3 g/dL (13.5-17.5) L 07/26/19 06:45 Hct 31.2 % (40.0-50.0) L 07/26/19 06:45 Plt Count 381 x1000/uL (130-400) 07/26/19 06:45 INR 1.1 (0.9-1.1) 07/24/19 18:10 Creatinine 2.33 mg/dL (0.70-1.30) H 07/26/19 06:45 DVT Prohphylaxis: N/A Therapeutic Anticoagulation: Reviewed (was on hold until debridement complete, now on hold until provider talks to hematology (may not be restarted).) - Opiate Usage Evaluate Pain Scale/Pains Meds: Reviewed Scheduled Bowel Reg ordered if on Opiates?: No (prn meds ordered) - Relevant Labs ESR 55 mm/hr (1-20) H 07/24/19 18:10 Sodium 133 mmol/L (136-145) L 07/26/19 06:45 Potassium 5.5 mmol/L (3.5-5.1) H 07/26/19 06:45 Chloride 102 mmol/L (98-107) 07/26/19 06:45 Magnesium 2.3 mg/dL (1.8-2.4) 07/26/19 06:45 C-Reactive Protein 4.84 mg/dL (0.0-0.3) H 07/26/19 06:45 Electrolytes, C-Reactive P, ESR: Reviewed (K+ still elevated, patiromer ordered daily until K+ is less than 5) - DM Control DM Control: Glucose 347 mg/dL (74-106) H D 07/26/19 06:45 Finger Stick Blood Glucose 259 Finger Stick Blood Glucose 259 Finger Stick Blood Glucose 384 Finger Stick Blood Glucose 384 Insulin Dosing: Reviewed (sliding scale aspart ordered and insulin NPH for stress dose steroid coverage. Lantus being held for now.) - Heart Failure/MS EF%, ARYA's, B-Blockers, Diuretics: Reviewed (amlodipine, metoprolol) - BP Control BP Control: Blood Pressure 122/73 Blood Pressure 125/54 Blood Pressure 121/60 Blood Pressure 119/58 Blood Pressure 131/71 If elevated: N/A - Qtc Review If Elevated: N/A (QTc 436) - IV to PO Switch IV Medications: N/A - Home Meds Home Med List reviewed: Reviewed (Some duplicate meds: multiple multivitamins, duonebs/combivent, multiple short acting insulins (lispro and aspart). Multiple anticholinergic meds: cetirizine, ipratropium, risperidone (increased risk of anticholinergic-related toxicities). Multiple meds require sepatate administration from one or more other meds: calcium/vitD, cephalexin, ferrous sulfate, gabapentin, levothyroxine, magnesium chloride, multivitamin, potassium bicarb/citric acid, prednisone, and sodium bicarb. Clonidine may enhance the AV- blocking effect of metoprolol and my enhance sinus node dysfunction; metoprolol may enhace the rebound hypertensive effect of clonidine if clonidine is abruptly withdrawn (monitor).) Relevent Home Meds Not ordered & why?: acidophilus-pectin, multivitamin, cephalexin(has other abx ordered), apixaban (on hold due to procedure), furosemide, insulin lispro (has sliding scale aspart ordered), lantus (on hold), vitamin B complex - Current meds Current Medication Order Review: Intervened (nonform potassium was ordered but not given as pt's own meds not brought in, but talked to provider about holding it due to hyperkalemia. Asked provider about parameters for patiromer and if wanted both combivent and duonebs ordered (both PRN). Discontinued a PACU med from yesterday) - Comments Comments/Follow Ups: Watch K+ levels before sending up patiromer. Watch BG, sodium levels, for restart of insulin glargine, info from hematology on apixaban and for culture results/sensitivities. Antibiotic Activity - Pharmacy Antibiotic Review Pharmacy Antibiotic Activity: C/S review (vanco and zosyn continue; urine culture growing gram negative rods and surgical culture growing MRSA)
--- NOTE | 2019-07-26 15:31 | WOUNDCARE ---
Wound Care Report Spoke with Dr. Webb. Wound consult deferred until Friday per MD request. Surgical dressing to stay in place until then.
[2019-07-26] MEDS: Terazosin 2 MG CAP 4 MG PO (17:14)
[2019-07-26] MEDS: Lidocaine 2% Jelly 6 ML SYR (17:47)
[2019-07-26] MEDS: Hydrocortisone SOD SUC. 100 MG VIAL 75 MG IVP (17:47)
[2019-07-26] MEDS: Magnesium Chloride 64 MG TABCR PO (17:48)
[2019-07-26] MEDS: Calcium 600mg/Vit D 200U TAB 1 TAB PO (17:48)
[2019-07-26] MEDS: Sodium Bicarbonate 650 MG TAB PO (20:13)
[2019-07-26] MEDS: Ascorbic Acid 500 MG TAB 250 MG PO (20:14)
[2019-07-26] MEDS: Nystatin POWDER 15 GM JAR TP (20:15)
[2019-07-26] MEDS: Ferrous Sulfate 325 MG TAB PO (20:15)
[2019-07-26] MEDS: risperiDONE 0.5 MG TAB 1.5 MG PO (21:51)
[2019-07-26] MEDS: Levothyroxine 25 MCG TAB 12.5 MCG PO (21:52)
[2019-07-26] MEDS: Melatonin 3 MG TAB 6 MG PO (21:52)
--- NOTE | 2019-07-26 22:42 | PGE_ITS ---
Date of Service Date of service: 07/26/19 Time of Service: 22:44 Assessment and Plan Assessment and plan (1) Open wound of left lower extremity without complication: Status: Acute Assessment and plan: debrided and dressed in OR 07/24. wound is clean and actually healing well (2) DVT (deep venous thrombosis): Status: Chronic (3) Old non-ST elevation myocardial infarction (NSTEMI): Status: Acute (4) Hep C w/o coma, chronic: Status: Acute Assessment and plan: will AFP (5) Decubitus ulcer, stage 4 with infection: Status: Acute Assessment and plan: edwar-pt continues to have significant bleeding. Will leave packing in place and place wound vac on friday. -d/w hospitalists. For the current time being- don't think we can keep pt on anti-coags. Pt did have a DVT in the popliteal vein in 04/15. He had a bleed in the LLE - which is still not completely healed. They took him off the blood thinners and placed IVC filter. Pt also had a non-STEMI in 04/15, but treated medically. pt also has A fib. - no signs of sacral osteo. Would treat w/ 10days of IV vanco. wound did grow out MRSA. -will see what blood cultures final turns out to be. Donna need to be onger to cover this. (6) Decubitus ulcer of sacral region, stage 4: Status: Acute (7) Protein-calorie malnutrition, mild: Status: Acute Assessment and plan: protein supplements. arginaid supplement (8) S/P proctocolectomy: Status: Acute Assessment and plan: unsure if this was for UC or cronhn's. will checked p-anca and CEA. see if we can get path report Bx pd. (9) Ileostomy in place: Status: Acute (10) UTI (urinary tract infection): Status: Acute Qualifiers: Urinary tract infection type: site unspecified Hematuria presence: without hematuria Qualified Code(s): N39.0 - Urinary tract infection, site not specified (11) MRSA colonization: Status: Chronic (12) Pulmonary hypertension: Status: Acute (13) Sepsis: Status: Resolved Assessment and plan: resolved (14) CHF (congestive heart failure): Status: Chronic (15) Acute kidney injury superimposed on chronic kidney disease: Status: Acute (16) Acute adrenal insufficiency: Status: Chronic (17) Acute on chronic renal insufficiency: Status: Acute (18) Atrial flutter, paroxysmal: Status: Chronic Assessment and plan: anitcog vs 325 ASA (19) Diabetes mellitus: Status: Chronic Qualifiers: Diabetes mellitus type: type 2 Diabetes mellitus long term care phlebotomist insulin use: with detention use Diabetes mellitus complication status: with neurologic complications Diabetes mellitus complication detail: with polyneuropathy Qualified Code(s): E11.42 - Type 2 diabetes mellitus with diabetic polyneuropathy; Z79.4 - exterminator helper termite (current) use of insulin (20) Chronic cholecystitis: Status: Chronic (21) Poorly controlled type 2 diabetes mellitus with circulatory disorder: Status: Chronic (22) Ambulatory dysfunction: Status: Chronic (23) Adrenal insufficiency: Status: Chronic (24) CKD (chronic kidney disease): Status: Chronic Qualifiers: Chronic kidney disease stage: unspecified stage Qualified Code(s): N18.9 - Chronic kidney disease, unspecified (25) Chronic bipolar disorder: Status: Chronic (26) CAD (coronary artery disease): Status: Chronic (27) Poor self care: Status: Chronic (28) Inability to get out of bed: Status: Chronic (29) Impaired mobility and ADLs: Status: Chronic (30) Chronic iron deficiency anemia: Status: Acute Assessment and plan: venofer Subjective Subjective Interval history since last seen: -pt had bleeding postOp again today. Will change dressing/place wound vac on Friday w/ mortgage loan specialist's. -pt will need some type of quasi-perm access. At min he is going to require IV abx for 10 days for the MRSA in the wound. We will see what his blood cultures what his blood cultures bottom turning lathe tender to be. -From reviewing his charts from [facility]- he does have Hep C -He insists that he had Crohn's adn had his surg at [facility]. We will see if we can get the path report. There is some question in the wound of possible malignancy- this tissue is sent for pathologic evaluation. -I don't think that the infection extends in the bone/sacrum. I did not do a bx for fear of seeding the bone. -pt is not a candidate for a flap based on his immobility, steroid requirements, MRSA, poorly controlled DM. Objective Objective Clinical Data: Abnormal lab results 07/26/19 07/26/19 Range/Units 06:45 06:45 WBC 11.70 H D (4.4-10.8) k/cumm RBC 4.29 L (4.50-6.00) m/cumm Hgb 9.3 L (13.5-17.5) g/dL Hct 31.2 L (40.0-50.0) % MCV 72.7 L (80-95) fL MCH 21.7 L (27.0-33.0) pg MCHC 29.8 L (32.0-36.0) g/dL RDW 15.7 H (11.8-14.1) % Absolute Neutrophils 10.06 H (1.2-6.7) k/cumm Absolute Lymphocytes 0.82 L (1.2-3.4) k/cumm Sodium 133 L (136-145) mmol/L Potassium 5.5 H (3.5-5.1) mmol/L BUN 53 H (7-18) mg/dL Creatinine 2.33 H (0.70-1.30) mg/dL Glucose 347 H D (74-106) mg/dL C-Reactive Protein 4.84 H (0.0-0.3) mg/dL Vital Signs Temperature 35.9 C L 07/26/19 20:20 Temperature Source Tympanic 07/26/19 20:20 Pulse 52 L 07/26/19 20:20 Pulse Rhythm Regular 07/26/19 16:50 Pulse 69 07/24/19 21:40 Respiratory Rate 18 07/26/19 20:20 Respiratory Effort 07/26/19 16:50 Respiratory Depth Normal 07/26/19 16:50 Respiratory Pattern Normal 07/26/19 16:50 Blood Pressure 154/78 H 07/26/19 20:20 Blood Pressure Mean 77 07/24/19 21:31 Blood Pressure Position Supine 07/24/19 17:19 Pulse Oximetry 98 07/26/19 20:20 Oxygen Delivery Method Room Air 07/26/19 20:20 Oxygen Flow Rate 0 07/26/19 20:20 Pain Level 5 07/26/19 20:20 Comment 07/26/19 03:33 Intake & Output 07/25/19 07/26/19 07/26/19 23:59 11:59 23:59 Intake Total 1921.667 / 3381.667 813.333 / 2993.333 2180 / 2993.333 Output Total 1075 / 1825 900 / 1650 750 / 1650 Balance 846.667 / 1556.667 -86.667 / 7331.560 3345 / 1343.333 Weight 97.3 kg Intake: IV 1671.667 / 3131.667 783.333 / 2143.333 1360 / 2143.333 Oral 250 / 250 30 / 850 820 / 850 Output: Urine 425 / 1075 650 / 750 100 / 750 Post Void Residual 400 / 400 Stool 550 / 650 250 / 500 250 / 500 Estimated Blood Loss 100 / 100 Other: Urine Color Yellow Yellow Urine Appearance Clear Clear Clear Urine Odor Normal Normal Comment pt voided 100 before straight cath. RN was only able to get 400 out during straight cath. Stool Size Small Moderate Stool Characteristics Soft Soft Liquid Brown Brown Emesis Description None Voiding Methods Urinal Urinal Laboratory Results WBC 11.70 k/cumm (4.4-10.8) H D 07/26/19 06:45 RBC 4.29 m/cumm (4.50-6.00) L 07/26/19 06:45 Hgb 9.3 g/dL (13.5-17.5) L 07/26/19 06:45 Hct 31.2 % (40.0-50.0) L 07/26/19 06:45 MCV 72.7 fL (80-95) L 07/26/19 06:45 MCH 21.7 pg (27.0-33.0) L 07/26/19 06:45 MCHC 29.8 g/dL (32.0-36.0) L 07/26/19 06:45 RDW 15.7 % (11.8-14.1) H 07/26/19 06:45 Plt Count 381 x1000/uL (130-400) 07/26/19 06:45 MPV 10.4 fL (8.0-11.0) 07/26/19 06:45 Immature Gran % See Differential 07/26/19 06:45 Neutrophils % 80.0 07/26/19 06:45 Band Neutrophils % 6.0 % 07/26/19 06:45 Lymphocytes % 7.0 07/26/19 06:45 Monocytes % 3.0 07/26/19 06:45 Eosinophils % 0.0 07/26/19 06:45 Basophils % 0.0 07/26/19 06:45 Metamyelocytes % 4.0 % 07/26/19 06:45 Absolute Neutrophils 10.06 k/cumm (1.2-6.7) H 07/26/19 06:45 Absolute Lymphocytes 0.82 k/cumm (1.2-3.4) L 07/26/19 06:45 Absolute Monocytes 0.35 k/cumm (0.11-0.7) 07/26/19 06:45 Absolute Eosinophils 0.00 k/cumm (0.0-0.7) 07/26/19 06:45 Absolute Basophils 0.00 k/cumm (0.0-0.2) 07/26/19 06:45 Differential Comment Manual differential 07/26/19 06:45 RBC Morphology See below 07/26/19 06:45 Polychromasia Present 07/26/19 06:45 Hypochromasia 1+ 07/26/19 06:45 Poikilocytosis 2+ 07/26/19 06:45 Basophilic Stippling Present 07/26/19 06:45 Anisocytosis 1+ 07/26/19 06:45 Microcytosis 2+ 07/26/19 06:45 Ovalocytes 2+ 07/26/19 06:45 ESR 55 mm/hr (1-20) H 07/24/19 18:10 PT 10.8 sec (9.3-11.0) 07/24/19 18:10 INR 1.1 (0.9-1.1) 07/24/19 18:10 APTT 26.4 sec (21.0-31.4) 07/24/19 18:10 Sodium 133 mmol/L (136-145) L 07/26/19 06:45 Potassium 5.5 mmol/L (3.5-5.1) H 07/26/19 06:45 Chloride 102 mmol/L (98-107) 07/26/19 06:45 Carbon Dioxide 25.4 mmol/L (21.0-32.0) 07/26/19 06:45 Anion Gap 5.6 mmol/L (3-11) 07/26/19 06:45 BUN 53 mg/dL (7-18) H 07/26/19 06:45 Creatinine 2.33 mg/dL (0.70-1.30) H 07/26/19 06:45 Estimated GFR/1.73 m2 28.72 (mL/min/1.73m2) 07/26/19 06:45 Glucose 347 mg/dL (74-106) H D 07/26/19 06:45 Lactate 1.0 mmol/L (0.6-1.4) 07/24/19 18:10 Calcium 9.3 mg/dL (8.5-10.1) 07/26/19 06:45 Magnesium 2.3 mg/dL (1.8-2.4) 07/26/19 06:45 Iron 14 ug/dL (65-175) L 07/24/19 18:00 TIBC 154 ug/dL (250-450) L 07/24/19 18:00 Ferritin 369 ng/mL (26-388) 07/25/19 06:37 Total Bilirubin 0.3 mg/dL (0.2-1.0) 07/25/19 06:37 AST 8 U/L (15-37) L 07/25/19 06:37 ALT 13 U/L (16-63) L 07/25/19 06:37 Alkaline Phosphatase 117 U/L (46-116) H 07/25/19 06:37 C-Reactive Protein 4.84 mg/dL (0.0-0.3) H 07/26/19 06:45 Total Protein 6.6 g/dL (6.4-8.2) 07/25/19 06:37 Albumin 2.2 g/dL (3.4-5.0) L 07/25/19 06:37 Procalcitonin 0.6 ng/mL 07/26/19 06:45 TSH 0.28 uIU/mL (0.36-3.74) L 07/24/19 18:10 Free T4 1.20 ng/dL (0.76-1.46) 07/24/19 18:10 Urine Color Yellow (Yellow) 07/24/19 18:40 Urine Clarity Cloudy (Clear) 07/24/19 18:40 Urine pH 6.0 (5-8) 07/24/19 18:40 Ur Specific [place] 1.010 (1.005-1.025) 07/24/19 18:40 Urine Protein 30 mg/dL (Negative) H 07/24/19 18:40 Urine Ketones Negative mg/dL (Negative) 07/24/19 18:40 Urine Blood Moderate (Negative) H 07/24/19 18:40 Urine Nitrite Positive (Negative) H 07/24/19 18:40 Urine Bilirubin Negative (Negative) 07/24/19 18:40 Urine Urobilinogen 0.2 EU/dL (Up TO 0.2) 07/24/19 18:40 Ur Leukocyte Esterase Moderate (Negative) H 07/24/19 18:40 Urine RBC Not Applicable 07/24/19 18:40 Urine WBC >50 HPF (0-5) H 07/24/19 18:40 Ur Epithelial Cells Not Applicable 07/24/19 18:40 Urine Crystals Not Applicable 07/24/19 18:40 Urine Bacteria HPF (Negative) 07/24/19 18:40 Urine Mucus Not Applicable 07/24/19 18:40 Ur Culture Indicated? Yes 07/24/19 18:40 Urine Glucose >=1000 mg/dL (Negative) H 07/24/19 18:40 COVID-19 PCR Negative (Negative) 07/24/19 21:45 Nasopharyn COVID-19 PCR Not Applicable 07/24/19 21:45 Ref Test Perform Site [facility] lab 07/24/19 21:45 Patient ABO/Rh AB Negative 07/25/19 10:55 Antibody Screen Negative 07/25/19 10:55
[2019-07-26] MEDS: Refresh PLUS Eye Drops 0.4ml 1 EACH OU (23:53)
[2019-07-27] VITALS (9 sets, daily range): BP systolic 137–170; BP diastolic 70–81; PULSE 50–59; RESP 17–22; TEMP 36–36.5; O2SAT 92–99
[2019-07-27] MEDS: Refresh PLUS Eye Drops 0.4ml 1 EACH OU (04:55)
[2019-07-27] MEDS: Magnesium Chloride 64 MG TABCR PO ×2 (05:37→17:25)
[2019-07-27] MEDS: Acetaminophen 500 MG TAB 1000 MG PO ×3 (05:37→22:00)
[2019-07-27] MEDS: Calcium 600mg/Vit D 200U TAB 1 TAB PO ×2 (05:37→17:25)
[2019-07-27] MEDS: Hydrocortisone SOD SUC. 100 MG VIAL 75 MG IVP ×2 (05:38→17:17)
[2019-07-27 07:09] LABS: Abs Immature Grans 1.08 k/cumm (0.0-0.09); HCT 27.1 % (40.0-50.0); Mean Corp. HGB Concentration 29.5 g/dL (32.0-36.0); Mean Corpuscular Hemoglobin 21.5 pg (27.0-33.0); Mean Corpuscular Volume 72.8 fL (80-95); Mean Platelet Volume 9.7 fL (8.0-11.0); Platelet Count 387 x1000/uL (130-400); RBC 3.72 m/cumm (4.50-6.00); RBC Distribution Width 15.6 % (11.8-14.1); White Blood Cell Count 11.17 k/cumm (4.4-10.8)
[2019-07-27] MEDS: Normal Saline 1,000 ML 100 ML IV ×2 (07:16→18:55)
[2019-07-27] MEDS: Insulin NPH-Human 300 UNITS/3 ML PEN 50 UNIT SC (07:18)
[2019-07-27 07:20] LABS: Anion Gap 3.7 mmol/L (3-11); BUN 49 mg/dL (7-18); CO2 25.3 mmol/L (21.0-32.0); CREATININE 2.25 mg/dL (0.70-1.30); Chloride 106 mmol/L (98-107); Glucose 184 mg/dL (74-106); Potassium 4.4 mmol/L (3.5-5.1); Sodium 135 mmol/L (136-145)
[2019-07-27 07:37] LABS: Absolute Lymphocyte Count 0.78 k/cumm (1.2-3.4); Absolute Monocyte Count 0.56 k/cumm (0.11-0.7); Absolute Neutrophil Count 8.82 k/cumm (1.2-6.7); Anisocytosis 2+; Diff Comment Manual Differential
[2019-07-27 07:38] LABS: Basophilic Stippling Present; Hypochromasia 3+; Microcytosis 3+; Ovalocytes 2+; Poikilocytes 2+
[2019-07-27] MEDS: MORPHine 2 MG/ML SYR IVP ×3 (07:42→15:53)
[2019-07-27] MEDS: VANCOMYCIN 1,000 MG in Normal Saline 250 ML 167 MG IV (08:37)
[2019-07-27] MEDS: Nystatin POWDER 15 GM JAR TP ×2 (08:37→20:05)
[2019-07-27] MEDS: Insulin Aspart 300 UNITS/3 ML PEN SC ×4 (08:37→22:06)
[2019-07-27] MEDS: PIPERACILLIN/TAZO 4.5 GM in Normal Saline 100 ML IVPB (08:37)
[2019-07-27] MEDS: Sodium Bicarbonate 650 MG TAB PO ×2 (08:38→20:03)
[2019-07-27] MEDS: Terazosin 2 MG CAP 4 MG PO ×2 (08:38→20:02)
[2019-07-27] MEDS: amLODIPine 5 MG TAB 10 MG PO (08:38)
[2019-07-27] MEDS: cloNIDine 0.1 MG TAB PO ×3 (08:38→20:03)
[2019-07-27] MEDS: Ascorbic Acid 500 MG TAB 250 MG PO ×2 (08:38→20:03)
[2019-07-27] MEDS: Cyanocobalamin 500 MCG TAB 1000 MCG PO (08:39)
[2019-07-27] MEDS: Cetirizine 10 MG TAB PO (08:39)
[2019-07-27] MEDS: Venlafaxine 37.5 MG CAPCR 112.5 MG PO (08:39)
[2019-07-27] MEDS: predniSONE 1 MG TAB 3 MG PO (08:39)
[2019-07-27] MEDS: predniSONE 10 MG TAB PO (08:39)
[2019-07-27] MEDS: Lactobacillus Acidophilus CAP 1 CAP PO ×3 (08:39→20:04)
[2019-07-27] MEDS: Pantoprazole 40 MG TABCR PO (08:39)
[2019-07-27] MEDS: Ferrous Sulfate 325 MG TAB PO ×2 (08:39→20:03)
[2019-07-27] MEDS: Metoprolol 25 MG TAB PO ×2 (08:39→20:03)
[2019-07-27] MEDS: Gabapentin 300 MG CAP PO ×3 (08:39→20:03)
--- NOTE | 2019-07-27 08:44 | PDOC.CMPRO ---
- If Service Date Differs Date of service: 07/27/19 Time of Service: 08:45 Care Management Progress Note S/O:Brendan was reclining in bed when CM met with him. He was pleasant and agreeable to conversation. Brendan stated that he is feeling much better today. He shared that yesterday was a difficult day with surgery and some post-operative bleeding that occurred. He stated that he does not have a lot of pain except when he moves. When asked about his sacral decubitus, Brendan stated that he thought that he had had it for about a week before he came into the hospital. He asserted that he had complained to the staff about pain in that area, but that it had not been there for a very long time. He understands that he will need IV antibiotics for a while and shared that he has diabetes and other conditions that make it wasy for him to get infections. A; Own is a 59 year old man admitted from the [facility] on 07/24/19 with UTI and a sacral ulcer P: Brendan will return to the [facility] when medically stable . He will follow up with his provider there. Brendan will likely transport via [facility] w/c van coordinated by KATELYN. CM will continue to support Brendan and discharge planning needs. CM updated Brendan's sister Lian, at his request.
[2019-07-27] MEDS: oxyCODONE 5 MG TAB PO (09:21)
[2019-07-27] MEDS: IRON SUCROSE COMPLEX 200 MG in Normal Saline 100 ML IVPB (10:12)
[2019-07-27] MEDS: MEROPENEM 1 GM in Normal Saline 100 ML IVPB ×2 (10:33→22:07)
--- NOTE | 2019-07-27 11:41 | DM INPTCON_ITS ---
Date of service: 07/27/19 Time of Service: 11:41 Diabetes Inpatient Consult DESCRIPTION/ASSESSMENT: Diabetic Education Consult. 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. He has been resident of the [facility] x 20 years. Returns to [facility] with chronic iron def. anemia, open wound of left leg and with new stage 4 pressure wound on sacrum requiring debridement and wound vac. 28 lbs weight loss noted in last 90 days (-13%). Dx with Moderate protein calorie malnutrition in view of significant weight loss in last 90 days. BMI remains elevated at 28. Meds include Vit C, B12, Fes04, novolog, NPH and prednison. Blood sugars elevated mostly > 300 mg/dl, most likely a factor of prednison, on sliding scale, correction provided. Most recent A1c 8.4% (05/18/19) indicating chronically high blood sugars in beginning of 2019. Following Diabetic Diet with excellent intake. Estimated Needs: [id number] kcal, 100-130 g protein. INTERVENTION: INTERVENTION: Provided education on DM including Hyper/hypoglycemia s/s with action plan for each scenario. Definition and types of CHO with examples, CHO counting, DASH diet materials, DM meal planning and label reading literature. Provided a blood sugar and food record chart and materials to reiterate CHO counting techniques. Reviewed desirable BG levels with patient with food choices and portions for optimal outcomes. CDM from kitchen has been helping Brendan to count his CHO's and achieve intake of ~65g/CHO per meal period. Also, recommend adding 1 oz liquid protein TID (45 g protein) to provide additional protein due to increased protein needs for optimal healing. Will also provide double serving of high biological value protein at meals. PLAN: Diabetic Diet with double protein servings at meals 1 oz liuqid protein TID for additional protein intake due to increased needs with pressure wound 220 mg zinc sulfate continue vitamin C as ordered Time Spent in Nutritional Counseling and Treatment: 20 min
--- NOTE | 2019-07-27 12:08 | W.PM.PROGNOT ---
Date of Service Date of service: 07/27/19 Time of Service: 08:00 Assessment and Plan Assessment and plan (1) Decubitus ulcer, stage 4 with infection: Status: Acute Assessment and plan: Continues to have some bruising of blood. Pain controlled with IV and oral opiates. Probable source of bacteremia with MRSA. If continued bacteremia may need to push the issue of imaging studies to assess for osteomyelitis in the pelvis or abscess. Wound management per surgical team. (2) MRSA bacteremia: Status: Acute Assessment and plan: Probable source is decubitus ulcer. Continue vancomycin and await repeat cultures. If he does not clear bacteremia assess for abscess in the pelvic area, assess for endovascular infection. (3) ESBL (extended spectrum beta-lactamase) producing bacteria infection: Status: Acute Assessment and plan: Antibiotics changed to meropenem to cover this organism. Monitor temperature, white blood cell count, pulse and blood pressure. (4) CAD (coronary artery disease): Status: Chronic Assessment and plan: No anginal symptoms. Continues on beta-lia, calcium channel lia but no antiplatelet agent at this time because of his bleeding. Once his bleeding has stopped, can consider antiplatelet versus anticoagulation as noted below. (5) Rheumatoid arthritis: Status: Chronic Assessment and plan: Mostly burned-out. Prednisone dose remains at outpatient with stress dose steroids being slowly tapered. (6) Adrenal insufficiency: Status: Chronic Assessment and plan: Parenteral hydrocortisone being weaned. (7) Hyperkalemia: Status: Acute Assessment and plan: Likely due to acute kidney injury. Now resolved. Veltassa stopped. Monitor potassium level. (8) Atrial flutter, paroxysmal: Status: Chronic Assessment and plan: No recurrence on telemetry, just sinus bradycardia. Anticoagulation for past DVT and history of A. fib on hold because of bleeding. Continue metoprolol at current dose. (9) Diabetes mellitus: Status: Chronic Assessment and plan: Blood sugars are coming down with weaning of steroids and increasing his insulin. Insulin dosing will be adjusted based on blood sugars. Qualifiers: Diabetes mellitus type: type 2 Diabetes mellitus longterm insulin use: with ocean transportation intermediary use Diabetes mellitus complication status: with neurologic complications Diabetes mellitus complication detail: with polyneuropathy Qualified Code(s): E11.42 - Type 2 diabetes mellitus with diabetic polyneuropathy; Z79.4 - snf (current) use of insulin (10) History of DVT (deep vein thrombosis): Status: Acute Assessment and plan: He has an IVC filter which is of some reassurance now that he is off anticoagulation temporarily because of his bleeding with the sacral ulcer. He will not tolerate compression stockings or sequential compression stockings. (11) Acute kidney injury superimposed on chronic kidney disease: Status: Acute Assessment and plan: BUN and creatinine are approaching his baseline. He continues on bicarb supplement. Diuretic remains on hold. Monitor fluid balance, BUN and creatinine. (12) Bradycardia: Status: Chronic Assessment and plan: Asymptomatic and I do not think this necessitates dropping his beta-lia dose. (13) CHF (congestive heart failure): Status: Chronic Assessment and plan: Thus far no decompensation with diuretic on hold. Follow closely for fluid retention, increased shortness of breath or other signs that we need to resume diuretic. (14) Hypoventilation associated with obesity syndrome: Status: Acute Assessment and plan: Tolerating trilogy unit which may have some mechanical problems and is being addressed. Subjective Subjective Interval history since last seen: Complains of a little pain in the sacral area but better after he got pain medications. Reports that the trilogy unit did not seem to work well last night and there may be a leak in 1 of the hoses, being addressed by respiratory therapy. Denies feeling short of breath. Denies abdominal pain or nausea. Telemetry has shown sinus bradycardia and has had no recurrence of A. fib or flutter. He was as low as the 40s without symptoms. His urine culture is growing extended spectrum beta-lactamase producing E. coli and his blood cultures from early in hospitalization are growing MRSA. Subsequent blood cultures drawn yesterday negative thus far. Blood sugars are coming down with weaning of his steroids and initiation of NPH insulin for his stress dose steroids. Exam Narrative Exam Narrative: Initially drowsy, soon becomes fully alert. No acute emotional or respiratory distress. Cannot see neck veins because of neck size. He has some coarse crackles at the left base that could better with deep breathing but never fully gone. Diminished breath sounds in the right base no dullness and no wheeze. Regular slow heart rhythm no murmur S3 or S4 heard. Active bowel sounds with no tenderness around his ostomy. He has some minimal discomfort in the left lower quadrant area with no guarding or rebound. Packing in the sacral wound bloodsoaked but not actively bleeding now. Chronic increased pigmentation lower extremities. Mepilex dressing on the left negro was not removed. His feet are warm although it is difficult to feel a pulse in his feet. He has chronic deformities from rheumatoid arthritis of both hands. He assist with rolling in bed. Objective Objective Clinical Data: Abnormal lab results 07/27/19 07/27/19 Range/Units 06:35 06:35 WBC 11.17 H (4.4-10.8) k/cumm RBC 3.72 L (4.50-6.00) m/cumm Hgb 8.0 L (13.5-17.5) g/dL Hct 27.1 L (40.0-50.0) % MCV 72.8 L (80-95) fL MCH 21.5 L (27.0-33.0) pg MCHC 29.5 L (32.0-36.0) g/dL RDW 15.6 H (11.8-14.1) % Absolute Neutrophils 8.82 H (1.2-6.7) k/cumm Absolute Lymphocytes 0.78 L (1.2-3.4) k/cumm Sodium 135 L (136-145) mmol/L BUN 49 H (7-18) mg/dL Creatinine 2.25 H (0.70-1.30) mg/dL Glucose 184 H D (74-106) mg/dL Vital Signs Temperature 36.0 C L 07/27/19 11:33 Temperature Source Tympanic 07/27/19 11:33 Pulse 52 L 07/27/19 11:33 Pulse Rhythm Regular 07/27/19 10:28 Pulse 69 07/24/19 21:40 Respiratory Rate 18 07/27/19 11:33 Respiratory Effort 07/27/19 10:28 Respiratory Depth Normal 07/27/19 10:28 Respiratory Pattern Normal 07/27/19 10:28 Blood Pressure 146/78 H 07/27/19 11:33 Blood Pressure Mean 77 07/24/19 21:31 Blood Pressure Position Supine 07/24/19 17:19 Pulse Oximetry 99 07/27/19 11:33 Oxygen Delivery Method Nasal Cannula 07/27/19 11:33 Oxygen Flow Rate 2 07/27/19 11:33 Pain Level 3 07/27/19 11:33 Comment 07/27/19 02:55 Intake & Output 07/26/19 07/27/19 07/27/19 23:59 11:59 23:59 Intake Total 2280 / 3093.333 2079.583 / 2079.583 Output Total 1270 / 2170 1105 / 1505 400 / 1505 Balance 1010 / 923.333 974.583 / 574.583 -400 / 574.583 Weight 97.7 kg Intake: IV 1460 / 2243.333 1499.583 / 1499.583 Oral 820 / 850 580 / 580 Output: Urine 620 / 1270 925 / 1325 400 / 1325 Post Void Residual 400 / 400 Stool 250 / 500 180 / 180 Other: Urine Color Yellow Yellow Yellow Urine Appearance Clear Clear Clear Urine Odor None Normal Comment pt voided 100 before straight cath. RN was only able to get 400 out during straight cath. post void residual volume Stool Size Moderate Moderate Stool Characteristics Liquid Soft Liquid Brown Bloody Emesis Description None Voiding Methods Urinal Urinal Laboratory Results WBC 11.17 k/cumm (4.4-10.8) H 07/27/19 06:35 RBC 3.72 m/cumm (4.50-6.00) L 07/27/19 06:35 Hgb 8.0 g/dL (13.5-17.5) L 07/27/19 06:35 Hct 27.1 % (40.0-50.0) L 07/27/19 06:35 MCV 72.8 fL (80-95) L 07/27/19 06:35 MCH 21.5 pg (27.0-33.0) L 07/27/19 06:35 MCHC 29.5 g/dL (32.0-36.0) L 07/27/19 06:35 RDW 15.6 % (11.8-14.1) H 07/27/19 06:35 Plt Count 387 x1000/uL (130-400) 07/27/19 06:35 MPV 9.7 fL (8.0-11.0) 07/27/19 06:35 Immature Gran % See Differential 07/27/19 06:35 Neutrophils % 70.0 07/27/19 06:35 Band Neutrophils % 9.0 % 07/27/19 06:35 Lymphocytes % 7.0 07/27/19 06:35 Monocytes % 5.0 07/27/19 06:35 Eosinophils % 0.0 07/27/19 06:35 Basophils % 0.0 07/27/19 06:35 Metamyelocytes % 5.0 % 07/27/19 06:35 Myelocytes % 4.0 % 07/27/19 06:35 Absolute Neutrophils 8.82 k/cumm (1.2-6.7) H 07/27/19 06:35 Absolute Lymphocytes 0.78 k/cumm (1.2-3.4) L 07/27/19 06:35 Absolute Monocytes 0.56 k/cumm (0.11-0.7) 07/27/19 06:35 Absolute Eosinophils 0.00 k/cumm (0.0-0.7) 07/27/19 06:35 Absolute Basophils 0.00 k/cumm (0.0-0.2) 07/27/19 06:35 Differential Comment Manual differential 07/27/19 06:35 RBC Morphology See below 07/27/19 06:35 Polychromasia Present 07/26/19 06:45 Hypochromasia 3+ 07/27/19 06:35 Poikilocytosis 2+ 07/27/19 06:35 Basophilic Stippling Present 07/27/19 06:35 Anisocytosis 2+ 07/27/19 06:35 Microcytosis 3+ 07/27/19 06:35 Ovalocytes 2+ 07/27/19 06:35 ESR 55 mm/hr (1-20) H 07/24/19 18:10 PT 10.8 sec (9.3-11.0) 07/24/19 18:10 INR 1.1 (0.9-1.1) 07/24/19 18:10 APTT 26.4 sec (21.0-31.4) 07/24/19 18:10 Sodium 135 mmol/L (136-145) L 07/27/19 06:35 Potassium 4.4 mmol/L (3.5-5.1) 07/27/19 06:35 Chloride 106 mmol/L (98-107) 07/27/19 06:35 Carbon Dioxide 25.3 mmol/L (21.0-32.0) 07/27/19 06:35 Anion Gap 3.7 mmol/L (3-11) 07/27/19 06:35 BUN 49 mg/dL (7-18) H 07/27/19 06:35 Creatinine 2.25 mg/dL (0.70-1.30) H 07/27/19 06:35 Estimated GFR/1.73 m2 29.90 (mL/min/1.73m2) 07/27/19 06:35 Glucose 184 mg/dL (74-106) H D 07/27/19 06:35 Lactate 1.0 mmol/L (0.6-1.4) 07/24/19 18:10 Calcium 9.0 mg/dL (8.5-10.1) 07/27/19 06:35 Magnesium 2.3 mg/dL (1.8-2.4) 07/26/19 06:45 Iron 14 ug/dL (65-175) L 07/24/19 18:00 TIBC 154 ug/dL (250-450) L 07/24/19 18:00 Ferritin 369 ng/mL (26-388) 07/25/19 06:37 Total Bilirubin 0.3 mg/dL (0.2-1.0) 07/25/19 06:37 AST 8 U/L (15-37) L 07/25/19 06:37 ALT 13 U/L (16-63) L 07/25/19 06:37 Alkaline Phosphatase 117 U/L (46-116) H 07/25/19 06:37 C-Reactive Protein 4.84 mg/dL (0.0-0.3) H 07/26/19 06:45 Total Protein 6.6 g/dL (6.4-8.2) 07/25/19 06:37 Albumin 2.2 g/dL (3.4-5.0) L 07/25/19 06:37 Procalcitonin 0.6 ng/mL 07/26/19 06:45 TSH 0.28 uIU/mL (0.36-3.74) L 07/24/19 18:10 Free T4 1.20 ng/dL (0.76-1.46) 07/24/19 18:10 Urine Color Yellow (Yellow) 07/24/19 18:40 Urine Clarity Cloudy (Clear) 07/24/19 18:40 Urine pH 6.0 (5-8) 07/24/19 18:40 Ur Specific Hyrum 1.010 (1.005-1.025) 07/24/19 18:40 Urine Protein 30 mg/dL (Negative) H 07/24/19 18:40 Urine Ketones Negative mg/dL (Negative) 07/24/19 18:40 Urine Blood Moderate (Negative) H 07/24/19 18:40 Urine Nitrite Positive (Negative) H 07/24/19 18:40 Urine Bilirubin Negative (Negative) 07/24/19 18:40 Urine Urobilinogen 0.2 EU/dL (Up TO 0.2) 07/24/19 18:40 Ur Leukocyte Esterase Moderate (Negative) H 07/24/19 18:40 Urine RBC Not Applicable 07/24/19 18:40 Urine WBC >50 HPF (0-5) H 07/24/19 18:40 Ur Epithelial Cells Not Applicable 07/24/19 18:40 Urine Crystals Not Applicable 07/24/19 18:40 Urine Bacteria HPF (Negative) 07/24/19 18:40 Urine Mucus Not Applicable 07/24/19 18:40 Ur Culture Indicated? Yes 07/24/19 18:40 Urine Glucose >=1000 mg/dL (Negative) H 07/24/19 18:40 COVID-19 PCR Negative (Negative) 07/24/19 21:45 Nasopharyn COVID-19 PCR Not Applicable 07/24/19 21:45 Ref Test Perform Site [facility] lab 07/24/19 21:45 Patient ABO/Rh AB Negative 07/25/19 10:55 Antibody Screen Negative 07/25/19 10:55
[2019-07-27] MEDS: Protein Nutritional Supplement 16 GM 1 OUNCE PACKET PO ×2 (14:40→20:04)
--- NOTE | 2019-07-27 15:49 | CHAPLAIN ---
Brendan and I know each from previous admissions over the years. Brendan has been her several times this year. He said he was in the OR yesterday for debridment of a wound on his rear and tomorrow he'll be going back to get a wound vac put on. The would doesn't hurt unless he moves, he said. Brendan lives at the [facility]. He is familiar to many of the staff here and usually comfortable being here.
[2019-07-27] MEDS: Insulin NPH-Human 300 UNITS/3 ML PEN SC (17:26)
[2019-07-27] MEDS: Normal Saline Flush 10 ML SYR IVP (17:27)
[2019-07-27] MEDS: Levothyroxine 25 MCG TAB 12.5 MCG PO (21:59)
[2019-07-27] MEDS: risperiDONE 0.5 MG TAB 1.5 MG PO (22:00)
[2019-07-27] MEDS: Melatonin 3 MG TAB 6 MG PO (23:34)
[2019-07-27] MEDS: LORazepam 1 MG TAB PO (23:34)
[2019-07-28] MEDS: VANCOMYCIN 1,000 MG in Normal Saline 250 ML 167 MG IV ×2 (01:29→20:42)
[2019-07-28 03:51] VITALS: BP 167/79; PULSE 57; RESP 19; TEMP 36; O2SAT 99
[2019-07-28] MEDS: Magnesium Chloride 64 MG TABCR PO ×2 (05:38→18:24)
[2019-07-28] MEDS: Acetaminophen 500 MG TAB 1000 MG PO ×3 (05:38→22:02)
[2019-07-28] MEDS: Calcium 600mg/Vit D 200U TAB 1 TAB PO ×2 (05:38→18:24)
[2019-07-28] MEDS: Hydrocortisone SOD SUC. 100 MG VIAL 75 MG IVP (05:39)
[2019-07-28] MEDS: Insulin NPH-Human 300 UNITS/3 ML PEN SC ×2 (06:05→18:34)
[2019-07-28] MEDS: Normal Saline 1,000 ML 100 ML IV ×2 (06:32→11:15)
[2019-07-28 07:08] LABS: Abs Immature Grans 3.13 k/cumm (0.0-0.09); HCT 29.5 % (40.0-50.0); HGB 8.9 g/dL (13.5-17.5); Mean Corp. HGB Concentration 30.2 g/dL (32.0-36.0); Mean Corpuscular Hemoglobin 22.3 pg (27.0-33.0); Mean Corpuscular Volume 73.9 fL (80-95); Mean Platelet Volume 9.7 fL (8.0-11.0); Platelet Count 373 x1000/uL (130-400); RBC 3.99 m/cumm (4.50-6.00); RBC Distribution Width 15.9 % (11.8-14.1); White Blood Cell Count 20.89 k/cumm (4.4-10.8)
[2019-07-28 07:14] LABS: Anion Gap 6.5 mmol/L (3-11); BUN 54 mg/dL (7-18); CO2 21.5 mmol/L (21.0-32.0); CREATININE 2.36 mg/dL (0.70-1.30); Chloride 105 mmol/L (98-107); Glucose 289 mg/dL (74-106); Potassium 5.2 mmol/L (3.5-5.1); Sodium 133 mmol/L (136-145)
[2019-07-28 07:22] VITALS: BP 149/71; PULSE 57; RESP 17; TEMP 36.9; O2SAT 93
--- NOTE | 2019-07-28 08:08 | PDOC.CMPRO ---
- If Service Date Differs Date of service: 07/28/19 Time of Service: 08:08 Care Management Progress Note S/O:Brendan was lying in bed when CM met with him. He has been dozing much of the day but woke up briefly this afternoon and stated that he was feeling OK. He denies pain. This morning Brendan had a triple lumen PICC inserted to facilitate the detention antibiotic regimen he will require. A; Own is a 59 year old man admitted from the 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 Since the [facility] is unable to provide this service, he will likely need to transition to SB-1 status at some point. Ultimately, Brendan will return to the [facility] when treatment is complete. CM will continue to support Brendan and his discharge planning concerns and will update his sister as needed.
[2019-07-28 08:11] LABS: Absolute Eosinophil Count 0.63 k/cumm (0.0-0.7); Absolute Lymphocyte Count 2.09 k/cumm (1.2-3.4); Absolute Monocyte Count 1.25 k/cumm (0.11-0.7); Absolute Neutrophil Count 15.04 k/cumm (1.2-6.7)
[2019-07-28 08:12] LABS: Absolute Basophil Count 0.42 k/cumm (0.0-0.2); Diff Comment Manual Differential; Hypochromasia 2+; Microcytosis 1+; Nucleated RBC 3 /100WBC; Polychromasia Present
[2019-07-28 08:13] LABS: Poikilocytes 2+
[2019-07-28 08:15] VITALS: O2SAT 97
[2019-07-28] MEDS: Hydrocortisone SOD SUC. 100 MG VIAL 50 MG IVP ×2 (08:15→20:44)
[2019-07-28] MEDS: MORPHine 2 MG/ML SYR IVP ×2 (08:15→10:05)
[2019-07-28] MEDS: Insulin Aspart 300 UNITS/3 ML PEN SC ×4 (08:15→22:03)
[2019-07-28] MEDS: Protein Nutritional Supplement 16 GM 1 OUNCE PACKET PO ×3 (08:16→20:41)
[2019-07-28] MEDS: Ascorbic Acid 500 MG TAB 250 MG PO ×2 (08:16→20:40)
[2019-07-28] MEDS: cloNIDine 0.1 MG TAB PO ×3 (08:16→20:41)
[2019-07-28] MEDS: Terazosin 2 MG CAP 4 MG PO ×2 (08:17→20:41)
[2019-07-28] MEDS: Gabapentin 300 MG CAP PO ×3 (08:18→20:41)
[2019-07-28] MEDS: Cyanocobalamin 500 MCG TAB 1000 MCG PO (08:19)
[2019-07-28] MEDS: Venlafaxine 37.5 MG CAPCR 112.5 MG PO (08:19)
[2019-07-28] MEDS: predniSONE 1 MG TAB 3 MG PO (08:19)
[2019-07-28] MEDS: predniSONE 10 MG TAB PO (08:20)
[2019-07-28] MEDS: Metoprolol 25 MG TAB PO ×2 (08:20→20:41)
[2019-07-28] MEDS: Pantoprazole 40 MG TABCR PO (08:20)
[2019-07-28] MEDS: Furosemide 80 MG TAB PO (08:20)
[2019-07-28] MEDS: Ferrous Sulfate 325 MG TAB PO ×2 (08:20→20:41)
[2019-07-28] MEDS: Sodium Bicarbonate 650 MG TAB PO ×2 (08:20→20:41)
[2019-07-28] MEDS: amLODIPine 5 MG TAB 10 MG PO (08:21)
[2019-07-28] MEDS: Cetirizine 10 MG TAB PO (08:21)
[2019-07-28] MEDS: Nystatin POWDER 15 GM JAR TP ×2 (08:23→20:44)
[2019-07-28] MEDS: Lactobacillus Acidophilus CAP 1 CAP PO ×3 (08:23→20:41)
[2019-07-28] MEDS: LORazepam 1 MG TAB PO (09:57)
[2019-07-28 09:58] LABS: AFP Tumor Marker <2.5 ng/mL (<8.1)
[2019-07-28] MEDS: Normal Saline Flush 10 ML SYR IVP ×2 (10:05→18:23)
[2019-07-28] MEDS: MEROPENEM 1 GM in Normal Saline 100 ML IVPB ×2 (11:15→23:06)
[2019-07-28 11:19] VITALS: BP 167/78; PULSE 54; RESP 22; TEMP 36.6; O2SAT 98
--- NOTE | 2019-07-28 11:37 | W.PM.PROGNOT ---
Date of Service Date of service: 07/28/19 Time of Service: 08:00 Assessment and Plan Assessment and plan (1) Decubitus ulcer, stage 4 with infection: Status: Acute Assessment and plan: Not having much in the way of pain. Dressing is going to be changed to a VAC dressing today. Discussion with patient regarding further imaging to assess for abscess. He is quite clear he does not want have an MRI?claustrophobic and is quite sure he could not lie still long enough. Agreeable to CAT scan if it is going to be helpful. At this point with second blood cultures remaining negative to date it seems we have source control of infection and I am holding off on imaging studies. However, white blood cell count has gone up. Monitor temperature curve. Low threshold to repeat CT of the pelvis if white count continues to climb or if he spikes a fever. Continue current antibiotic coverage. (2) MRSA bacteremia: Status: Acute Assessment and plan: Probable source is decubitus ulcer. Blood cultures from July 25 remain no growth to date. Continue vancomycin. Call placed to infectious disease to discuss optimizing treatment and duration. (3) ESBL (extended spectrum beta-lactamase) producing bacteria infection: Status: Acute Assessment and plan: Continues on meropenem. No fever but white count has climbed. Not clear if this is in anyway related to his urinary tract infection with extended spectrum beta-lactamase producing E. coli. Continue to monitor white count. (4) CAD (coronary artery disease): Status: Chronic Assessment and plan: No anginal symptoms. Continues on beta-lia, calcium channel lia but no antiplatelet agent at this time because of his bleeding. Once his bleeding has stopped, can consider antiplatelet versus anticoagulation as noted below. (5) Rheumatoid arthritis: Status: Chronic Assessment and plan: Mostly burned-out. Prednisone dose remains at outpatient with stress dose steroids being slowly tapered. (6) Adrenal insufficiency: Status: Chronic Assessment and plan: Parenteral hydrocortisone being weaned. Dose reduction to 50 mg twice daily today. Slow taper to continue. (7) Hyperkalemia: Status: Acute Assessment and plan: Likely due to acute kidney injury. Potassium now back up. Resume V[place]. Monitor potassium level. (8) Atrial flutter, paroxysmal: Status: Chronic Assessment and plan: No recurrence on telemetry, just sinus bradycardia. Anticoagulation for past DVT and history of A. fib on hold because of bleeding. Continue metoprolol at current dose. (9) Diabetes mellitus: Status: Chronic Assessment and plan: Blood sugars coming down but still high. I have added back some Lantus but not as much as his prehospital dosing. He continues on NPH while he receives the parenteral hydrocortisone. Continue to monitor blood sugars and adjust insulin dosing. Qualifiers: Diabetes mellitus type: type 2 Diabetes mellitus group home insulin use: with timber watchman use Diabetes mellitus complication status: with neurologic complications Diabetes mellitus complication detail: with polyneuropathy Qualified Code(s): E11.42 - Type 2 diabetes mellitus with diabetic polyneuropathy; Z79.4 - correction (current) use of insulin (10) History of DVT (deep vein thrombosis): Status: Acute Assessment and plan: He has an IVC filter which is of some reassurance now that he is off anticoagulation temporarily because of his bleeding with the sacral ulcer. He will not tolerate compression stockings or sequential compression stockings. (11) Acute kidney injury superimposed on chronic kidney disease: Status: Acute Assessment and plan: BUN and creatinine are rising for unclear reasons. Oral intake has been reasonably good. Urine output has been good. He has had problems with acute on chronic kidney disease severe enough to require transient dialysis. Hopefully he is not heading in the same direction. We are continue to monitor his vancomycin trough levels. Continue to monitor BUN and creatinine. (12) Bradycardia: Status: Chronic Assessment and plan: Asymptomatic and I do not think this necessitates dropping his beta-lia dose. (13) CHF (congestive heart failure): Status: Chronic Assessment and plan: Thus far no decompensation. A little bit edematous today. I am resuming furosemide at about half his outpatient dose monitoring fluid status, BUN/creatinine and electrolytes. (14) Hypoventilation associated with obesity syndrome: Status: Acute Assessment and plan: Tolerating BiPAP support. No changes planned in management at this time. (15) Hypertension: Status: Chronic Assessment and plan: Blood pressure has been creeping up slightly. I am adding back his furosemide, half his usual dose and monitor blood pressure response. Qualifiers: Hypertension type: essential hypertension Qualified Code(s): I10 - Essential (primary) hypertension Subjective Subjective Interval history since last seen: Mr. Corley is relatively comfortable in bed. He denies having significant pain in the sacral area. Dressing is to be changed to a VAC system midday today. Subsequent blood cultures have remained negative. His white blood cell count has climbed (despite lowering his steroid dose). He remains afebrile. His blood pressure is creeping up. He continues to have good urine output. Denies feeling short of breath. Denies any chest discomfort. Denies nausea. Appetite remains robust. Denies dysuria. He has had no bloody output from his ostomy. No discomfort in the lower extremities if they are left at rest. He has some sensitivity to touch on the anterior shins bilaterally. Exam Narrative Exam Narrative: Sleepy but arousable. Blood pressure 167/78 temperature 36.6. Cannot see neck veins because of his neck size. Slightly diminished breath sounds at the bases clear in the upper lung barnard. No wheezing heard. Regular heart rhythm with sinus bradycardia again on telemetry but nothing more. No S3-S4 or murmur. Abdomen active bowel sounds soft nontender. Brown stool in his ostomy bag. 1+ ankle edema bilaterally which is an increase from yesterday. No calf tenderness. Chronic increased pigmentation of the lower extremities. Dressing on the left negro was not removed. Objective Objective Clinical Data: Abnormal lab results 07/28/19 07/28/19 Range/Units 06:40 06:40 WBC 20.89 H D (4.4-10.8) k/cumm RBC 3.99 L (4.50-6.00) m/cumm Hgb 8.9 L (13.5-17.5) g/dL Hct 29.5 L (40.0-50.0) % MCV 73.9 L (80-95) fL MCH 22.3 L (27.0-33.0) pg MCHC 30.2 L (32.0-36.0) g/dL RDW 15.9 H (11.8-14.1) % Absolute Neutrophils 15.04 H (1.2-6.7) k/cumm Absolute Monocytes 1.25 H (0.11-0.7) k/cumm Absolute Basophils 0.42 H (0.0-0.2) k/cumm Sodium 133 L (136-145) mmol/L Potassium 5.2 H (3.5-5.1) mmol/L BUN 54 H (7-18) mg/dL Creatinine 2.36 H (0.70-1.30) mg/dL Glucose 289 H D (74-106) mg/dL Vital Signs Temperature 36.6 C 07/28/19 11:19 Temperature Source Tympanic 07/28/19 11:19 Pulse 54 L 07/28/19 11:19 Pulse Rhythm Regular 07/28/19 08:15 Pulse 69 07/24/19 21:40 Respiratory Rate 22 07/28/19 11:19 Respiratory Effort Short of Breath 07/28/19 08:15 Respiratory Depth Normal 07/28/19 08:15 Respiratory Pattern Normal 07/28/19 08:15 Blood Pressure 167/78 H 07/28/19 11:19 Blood Pressure Mean 77 07/24/19 21:31 Blood Pressure Position Supine 07/24/19 17:19 Pulse Oximetry 98 07/28/19 11:19 Oxygen Delivery Method Nasal Cannula 07/28/19 11:19 Oxygen Flow Rate 2 07/28/19 11:19 Pain Level 8 07/28/19 08:15 Comment 07/27/19 23:46 Intake & Output 07/27/19 07/27/19 07/28/19 11:59 23:59 11:59 Intake Total 2079.583 / 4529.583 2450 / 4529.583 2701.667 / 2701.667 Output Total 1105 / 2795 1690 / 2795 2480 / 2480 Balance 974.583 / 1734.583 760 / 1734.583 221.667 / 221.667 Weight 97.7 kg 99 g Intake: IV 1499.583 / 3699.583 2200 / 3699.583 1971.667 / 1971.667 Oral 580 / 830 250 / 830 730 / 730 Output: Urine 925 / 1915 990 / 1915 1550 / 1550 Post Void Residual 280 / 280 Stool 180 / 880 700 / 880 650 / 650 Other: Urine Color Yellow Yellow Straw Urine Appearance Clear Clear Cloudy Urine Odor Normal Strong Comment post void residual volume Stool Size Moderate Stool Characteristics Soft Liquid Brown Bloody Voiding Methods Urinal Urinal Urinal Laboratory Results WBC 20.89 k/cumm (4.4-10.8) H D 07/28/19 06:40 RBC 3.99 m/cumm (4.50-6.00) L 07/28/19 06:40 Hgb 8.9 g/dL (13.5-17.5) L 07/28/19 06:40 Hct 29.5 % (40.0-50.0) L 07/28/19 06:40 MCV 73.9 fL (80-95) L 07/28/19 06:40 MCH 22.3 pg (27.0-33.0) L 07/28/19 06:40 MCHC 30.2 g/dL (32.0-36.0) L 07/28/19 06:40 RDW 15.9 % (11.8-14.1) H 07/28/19 06:40 Plt Count 373 x1000/uL (130-400) 07/28/19 06:40 MPV 9.7 fL (8.0-11.0) 07/28/19 06:40 Immature Gran % 0.0 % 07/28/19 06:40 Neutrophils % 68.0 07/28/19 06:40 Band Neutrophils % 4.0 % 07/28/19 06:40 Lymphocytes % 10.0 07/28/19 06:40 Monocytes % 6.0 07/28/19 06:40 Eosinophils % 3.0 07/28/19 06:40 Basophils % 2.0 07/28/19 06:40 Metamyelocytes % 3.0 % 07/28/19 06:40 Myelocytes % 4.0 % 07/28/19 06:40 Absolute Neutrophils 15.04 k/cumm (1.2-6.7) H 07/28/19 06:40 Absolute Lymphocytes 2.09 k/cumm (1.2-3.4) 07/28/19 06:40 Absolute Monocytes 1.25 k/cumm (0.11-0.7) H 07/28/19 06:40 Absolute Eosinophils 0.63 k/cumm (0.0-0.7) 07/28/19 06:40 Absolute Basophils 0.42 k/cumm (0.0-0.2) H 07/28/19 06:40 Nucleated RBCs 3 /100WBC 07/28/19 06:40 Differential Comment Manual differential 07/28/19 06:40 RBC Morphology See below 07/28/19 06:40 Polychromasia Present 07/28/19 06:40 Hypochromasia 2+ 07/28/19 06:40 Poikilocytosis 2+ 07/28/19 06:40 Basophilic Stippling Present 07/27/19 06:35 Anisocytosis 2+ 07/27/19 06:35 Microcytosis 1+ 07/28/19 06:40 Ovalocytes 2+ 07/27/19 06:35 ESR 55 mm/hr (1-20) H 07/24/19 18:10 PT 10.8 sec (9.3-11.0) 07/24/19 18:10 INR 1.1 (0.9-1.1) 07/24/19 18:10 APTT 26.4 sec (21.0-31.4) 07/24/19 18:10 Sodium 133 mmol/L (136-145) L 07/28/19 06:40 Potassium 5.2 mmol/L (3.5-5.1) H 07/28/19 06:40 Chloride 105 mmol/L (98-107) 07/28/19 06:40 Carbon Dioxide 21.5 mmol/L (21.0-32.0) 07/28/19 06:40 Anion Gap 6.5 mmol/L (3-11) 07/28/19 06:40 BUN 54 mg/dL (7-18) H 07/28/19 06:40 Creatinine 2.36 mg/dL (0.70-1.30) H 07/28/19 06:40 Estimated GFR/1.73 m2 28.30 (mL/min/1.73m2) 07/28/19 06:40 Glucose 289 mg/dL (74-106) H D 07/28/19 06:40 Lactate 1.0 mmol/L (0.6-1.4) 07/24/19 18:10 Calcium 9.0 mg/dL (8.5-10.1) 07/28/19 06:40 Magnesium 2.3 mg/dL (1.8-2.4) 07/26/19 06:45 Iron 14 ug/dL (65-175) L 07/24/19 18:00 TIBC 154 ug/dL (250-450) L 07/24/19 18:00 Ferritin 369 ng/mL (26-388) 07/25/19 06:37 Total Bilirubin 0.3 mg/dL (0.2-1.0) 07/25/19 06:37 AST 8 U/L (15-37) L 07/25/19 06:37 ALT 13 U/L (16-63) L 07/25/19 06:37 Alkaline Phosphatase 117 U/L (46-116) H 07/25/19 06:37 C-Reactive Protein 4.84 mg/dL (0.0-0.3) H 07/26/19 06:45 Total Protein 6.6 g/dL (6.4-8.2) 07/25/19 06:37 Albumin 2.2 g/dL (3.4-5.0) L 07/25/19 06:37 Tumor Marker AFP <2.5 ng/mL (<8.1) 07/27/19 06:35 Procalcitonin 0.6 ng/mL 07/26/19 06:45 TSH 0.28 uIU/mL (0.36-3.74) L 07/24/19 18:10 Free T4 1.20 ng/dL (0.76-1.46) 07/24/19 18:10 Urine Color Yellow (Yellow) 07/24/19 18:40 Urine Clarity Cloudy (Clear) 07/24/19 18:40 Urine pH 6.0 (5-8) 07/24/19 18:40 Ur Specific [place] 1.010 (1.005-1.025) 07/24/19 18:40 Urine Protein 30 mg/dL (Negative) H 07/24/19 18:40 Urine Ketones Negative mg/dL (Negative) 07/24/19 18:40 Urine Blood Moderate (Negative) H 07/24/19 18:40 Urine Nitrite Positive (Negative) H 07/24/19 18:40 Urine Bilirubin Negative (Negative) 07/24/19 18:40 Urine Urobilinogen 0.2 EU/dL (Up TO 0.2) 07/24/19 18:40 Ur Leukocyte Esterase Moderate (Negative) H 07/24/19 18:40 Urine RBC Not Applicable 07/24/19 18:40 Urine WBC >50 HPF (0-5) H 07/24/19 18:40 Ur Epithelial Cells Not Applicable 07/24/19 18:40 Urine Crystals Not Applicable 07/24/19 18:40 Urine Bacteria HPF (Negative) 07/24/19 18:40 Urine Mucus Not Applicable 07/24/19 18:40 Ur Culture Indicated? Yes 07/24/19 18:40 Urine Glucose >=1000 mg/dL (Negative) H 07/24/19 18:40 COVID-19 PCR Negative (Negative) 07/24/19 21:45 Nasopharyn COVID-19 PCR Not Applicable 07/24/19 21:45 Ref Test Perform Site [facility] lab 07/24/19 21:45 Patient ABO/Rh AB Negative 07/25/19 10:55 Antibody Screen Negative 07/25/19 10:55 Blood cultures from July 26 remain negative
[2019-07-28] MEDS: HYDROmorphone 2 MG/ML VIAL 1 MG IVP (12:00)
[2019-07-28 15:18] LABS: CEA 1.5 ng/mL (See Note)
--- NOTE | 2019-07-28 16:10 | WOUNDCONS ---
- If Service Date Differs Date of service: 07/28/19 Time of Service: 13:00 Wound Initial Evaluation Narrative: Consult placed by Dr. Webb to place wound vac. Wound measured and assessed with MD. Stitch in place left lower lateral side of qound. Wound bed with pink tissue, sanguinous drainage noted. Edge well defined. Wound measurements made while patient laying on left side and wound margins raised to approximate normal anatomical placement, not sagging. Wound 6.2 cm x 4 cm x 3.1 cm with 4 cm undermining from 1 o'clock to 7 o'clock, 2 cm undermining from 10 o'clock to 1 o'clock, a tunnel at 12 o'clock measuring 2 cm and a tunnel at 6 o'clock measuring 5.2 cm. peripheral skin purplish with scattered partial thickness open areas on right periphery of wound. Wound Pro wound vac placed with 2 pieces of white foam and one piece of black foam, with a bridge to the right flank/ hip area. Wound vac with good seal at 125 mmHg. - Wound Sacrum Wound Type: Incision Wound General Appearance: Sutures Intact, Unapproximated, Tunneling Wound Bed Greatest Portion: Red (Granulation), Dusky Red Wound Surrounding Tissue Appearance: Purple Wound Length: 6.2 cm Wound Width: 4 cm Wound Depth: 3.1 cm Wound Drainage Amount: Minimal Wound Drainage Odor: None/Absent Wound Drainage Description: Sanguineous Wound Topical Solution/Irrigant: Saline Irrigant Left Lateral Tib/Fib(lower leg) Wound Type: Full Thickness Wound General Appearance: Unapproximated Wound Bed Greatest Portion: Red (Granulation), Dusky Red Wound Bed Lesser Portion: Pale [place] Wound Surrounding Tissue Appearance: [place], Normal/Healthy Wound Length: 12 cm Wound Width: 3.6 cm Wound Depth: 0.1 cm Wound Drainage Amount: Minimal Wound Drainage Odor: None/Absent Wound Drainage Description: Sero Sanguineous Wound Topical Solution/Irrigant: Saline Irrigant Wound Debridement Method: Mechanical Wound Debridement Result: Healthy Tissue Revealed Wound Debridement Amount of Tissue Removed: Minimal - Circulation, Sensation, Motion Sensation Description: Within Normal Limits Skin Temperature: Warm Skin Color: Pale - Pain Pain Level: 5 Pain Scale Used: Donovan-Vargas Faces Pain Duration (Hours): 15 (pt premedicated, sleeping through mpost of procedure, occasional grimace.) Pain Duration/Frequency: Intermittent Left lateral calf wound- Debrided by Dr. Webb per her note on Friday07/25/19. Minimal serosanguinous drainage noted. Slight purple on lower inner periphery and scant purplish area on upper inner periphery. Edges with slight epibole. Debrisoft used to debride wound bed with scant dry serous drainage noted. Dressing applied. - Treatment/Dressing Change Topicals/Ointments: None Cleanse With: Saline Dressing Types: Mepilex Ag w/Border - Recomendation Recomendation:: Sacral wound- Per Dr. Webb apply wound vac, change M,W,F and PRN with pressure of 125 mmHg. Left lateral calf- Cleanse with ns, pat dry apply Mepilex AG. Change q3 days and PRN. Reposition patient so that he stays off of sacral area and is repositioned at least q 2 and PRN for discomfort. Raise heels off the bed. Check skin q shift for areas of pressure or breakdown. Physcian/Nurse Practioner Notified: Yes (Dr. Webb ) Referrals: Dietary Treatment Time - Patient Will be Seen Weekly Treatment: 1x/wk
[2019-07-28 17:35] VITALS: BP 155/90; PULSE 58; RESP 20; TEMP 36.4; O2SAT 100
[2019-07-28] MEDS: Normal Saline Flush 10 ML SYR 20 ML IVP (20:43)
--- NOTE | 2019-07-28 21:08 | PGE_ITS ---
Date of Service Date of service: 07/28/19 Time of Service: 21:08 Assessment and Plan Assessment and plan (1) History of DVT (deep vein thrombosis): Status: Acute (2) ESBL (extended spectrum beta-lactamase) producing bacteria infection: Status: Acute (3) MRSA bacteremia: Status: Acute (4) Chronic iron deficiency anemia: Status: Acute Assessment and plan: IV iron (5) Open wound of left lower extremity without complication: Status: Acute (6) Old non-ST elevation myocardial infarction (NSTEMI): Status: Acute (7) Hep C w/o coma, chronic: Status: Acute (8) Protein-calorie malnutrition, mild: Status: Acute (9) Decubitus ulcer, stage 4 with infection: Status: Acute Assessment and plan: +MRSA + MRSA in blood as well as e. coli. midline palced for access. repeat blood cults pd. 10 days of IV vanco for wound. poss longer depending on repeat blood cults. VAC. no osteo this wound is most likely not going to heal. The goal will be pain management and control of infection. Wound Vac will help to keep stool out of the wound and prevent further infections. path is pd on tissue that was removed and looking for malignancy. will check CEA and p anca. follow CRP check AFP for hx of long standing Hep C. no signs of cirrhosis or acties cont PT will follow Fe levels glucerna for albumin (10) S/P proctocolectomy: Status: Acute (11) MRSA colonization: Status: Chronic Subjective Subjective Interval history since last seen: pt c/o pain. no fevers. Had leak of ostomy yesterday and this contaiminated. the wound looks ok. The edges show less redness and swelling. There is no odor. no fevers. no productive cough. cultures adn labs reviewed. awaiting path results. I would like to get an MRI of the pelvis- but pt refuses. No sign of sacral ostoe. No signif drainage. don't feel there is sinus or communication b/t the abdom at this time. It is unusual that the wound break down in region of rectum. pt says it was done for Crohn's. He has not had problems recently. Sx was done 30 yrs ago at [facility]. pt is non mobile and on chronic steroids. Exam Chest Chest: normal inspection of the chest Resp Effort & Inspection: normal respiratory effort and able to speak in complete sentences Auscultation: clear to auscultation bilaterally Cardio Rhythm: other (chronic A. fib ) GI Inspection: scar Palpation: soft Auscultation: normal bowel sounds Other: ostomy RUQ Skin Wounds: wounds noted (12 cm x 5cm x2cm) Other: wound sacral/region rectum. size: 10% granulation 60% clean tissue 30% proteinaceous debris/slough. no necrotic tissue. friable and bleeds readily. I had one bleeder on the dermal edge. I tried cauterizing w/ out successes. Stitch was placed and this tool care of it. moderate pain. low hgb/albumin poorly controlled DM and chronic steriod use. non mobile. Hx of recent DVT and A. fib. Objective Objective Clinical Data: Abnormal lab results 07/28/19 07/28/19 Range/Units 06:40 06:40 WBC 20.89 H D (4.4-10.8) k/cumm RBC 3.99 L (4.50-6.00) m/cumm Hgb 8.9 L (13.5-17.5) g/dL Hct 29.5 L (40.0-50.0) % MCV 73.9 L (80-95) fL MCH 22.3 L (27.0-33.0) pg MCHC 30.2 L (32.0-36.0) g/dL RDW 15.9 H (11.8-14.1) % Absolute Neutrophils 15.04 H (1.2-6.7) k/cumm Absolute Monocytes 1.25 H (0.11-0.7) k/cumm Absolute Basophils 0.42 H (0.0-0.2) k/cumm Sodium 133 L (136-145) mmol/L Potassium 5.2 H (3.5-5.1) mmol/L BUN 54 H (7-18) mg/dL Creatinine 2.36 H (0.70-1.30) mg/dL Glucose 289 H D (74-106) mg/dL Vital Signs Temperature 36.4 C L 07/28/19 17:35 Temperature Source Tympanic 07/28/19 17:35 Pulse 58 L 07/28/19 17:35 Pulse Rhythm Regular 07/28/19 14:50 Pulse 69 05/30/20 21:40 Respiratory Rate 20 07/28/19 17:35 Respiratory Effort Short of Breath 07/28/19 14:50 Respiratory Depth Normal 07/28/19 14:50 Respiratory Pattern Normal 07/28/19 14:50 Blood Pressure 155/90 H 07/28/19 17:35 Blood Pressure Mean 77 07/24/19 21:31 Blood Pressure Position Supine 07/24/19 17:19 Pulse Oximetry 100 07/28/19 17:35 Oxygen Delivery Method Room Air 07/28/19 17:35 Oxygen Flow Rate 0 07/28/19 17:35 Pain Level 5 07/28/19 16:38 Comment 07/27/19 23:46 Intake & Output 07/27/19 07/28/19 07/28/19 23:59 11:59 23:59 Intake Total 2450 / 4529.583 2701.667 / 2701.667 Output Total 1690 / 2795 2480 / 3580 1100 / 3580 Balance 760 / 1734.583 221.667 / -878.333 -1100 / -878.333 Weight 99 g Intake: IV 2200 / 3699.583 1971.667 / 1971.667 Oral 250 / 830 730 / 730 Output: Urine 990 / 1915 1550 / 2450 900 / 2450 Post Void Residual 280 / 280 Stool 700 / 880 650 / 850 200 / 850 Other: Urine Color Yellow Straw Pale Yellow Urine Appearance Clear Cloudy Clear Urine Odor Strong Normal Voiding Methods Urinal Urinal Urinal Laboratory Results WBC 20.89 k/cumm (4.4-10.8) H D 07/28/19 06:40 RBC 3.99 m/cumm (4.50-6.00) L 07/28/19 06:40 Hgb 8.9 g/dL (13.5-17.5) L 07/28/19 06:40 Hct 29.5 % (40.0-50.0) L 07/28/19 06:40 MCV 73.9 fL (80-95) L 07/28/19 06:40 MCH 22.3 pg (27.0-33.0) L 07/28/19 06:40 MCHC 30.2 g/dL (32.0-36.0) L 07/28/19 06:40 RDW 15.9 % (11.8-14.1) H 07/28/19 06:40 Plt Count 373 x1000/uL (130-400) 07/28/19 06:40 MPV 9.7 fL (8.0-11.0) 07/28/19 06:40 Immature Gran % 0.0 % 07/28/19 06:40 Neutrophils % 68.0 07/28/19 06:40 Band Neutrophils % 4.0 % 07/28/19 06:40 Lymphocytes % 10.0 07/28/19 06:40 Monocytes % 6.0 07/28/19 06:40 Eosinophils % 3.0 07/28/19 06:40 Basophils % 2.0 07/28/19 06:40 Metamyelocytes % 3.0 % 07/28/19 06:40 Myelocytes % 4.0 % 07/28/19 06:40 Absolute Neutrophils 15.04 k/cumm (1.2-6.7) H 07/28/19 06:40 Absolute Lymphocytes 2.09 k/cumm (1.2-3.4) 07/28/19 06:40 Absolute Monocytes 1.25 k/cumm (0.11-0.7) H 07/28/19 06:40 Absolute Eosinophils 0.63 k/cumm (0.0-0.7) 07/28/19 06:40 Absolute Basophils 0.42 k/cumm (0.0-0.2) H 07/28/19 06:40 Nucleated RBCs 3 /100WBC 07/28/19 06:40 Differential Comment Manual differential 07/28/19 06:40 RBC Morphology See below 07/28/19 06:40 Polychromasia Present 07/28/19 06:40 Hypochromasia 2+ 07/28/19 06:40 Poikilocytosis 2+ 07/28/19 06:40 Basophilic Stippling Present 07/27/19 06:35 Anisocytosis 2+ 07/27/19 06:35 Microcytosis 1+ 07/28/19 06:40 Ovalocytes 2+ 07/27/19 06:35 ESR 55 mm/hr (1-20) H 07/24/19 18:10 PT 10.8 sec (9.3-11.0) 07/24/19 18:10 INR 1.1 (0.9-1.1) 07/24/19 18:10 APTT 26.4 sec (21.0-31.4) 07/24/19 18:10 Sodium 133 mmol/L (136-145) L 07/28/19 06:40 Potassium 5.2 mmol/L (3.5-5.1) H 07/28/19 06:40 Chloride 105 mmol/L (98-107) 07/28/19 06:40 Carbon Dioxide 21.5 mmol/L (21.0-32.0) 07/28/19 06:40 Anion Gap 6.5 mmol/L (3-11) 07/28/19 06:40 BUN 54 mg/dL (7-18) H 07/28/19 06:40 Creatinine 2.36 mg/dL (0.70-1.30) H 07/28/19 06:40 Estimated GFR/1.73 m2 28.30 (mL/min/1.73m2) 07/28/19 06:40 Glucose 289 mg/dL (74-106) H D 07/28/19 06:40 Lactate 1.0 mmol/L (0.6-1.4) 07/24/19 18:10 Calcium 9.0 mg/dL (8.5-10.1) 07/28/19 06:40 Magnesium 2.3 mg/dL (1.8-2.4) 07/26/19 06:45 Iron 14 ug/dL (65-175) L 07/24/19 18:00 TIBC 154 ug/dL (250-450) L 07/24/19 18:00 Ferritin 369 ng/mL (26-388) 07/25/19 06:37 Total Bilirubin 0.3 mg/dL (0.2-1.0) 07/25/19 06:37 AST 8 U/L (15-37) L 07/25/19 06:37 ALT 13 U/L (16-63) L 07/25/19 06:37 Alkaline Phosphatase 117 U/L (46-116) H 07/25/19 06:37 C-Reactive Protein 4.84 mg/dL (0.0-0.3) H 07/26/19 06:45 Total Protein 6.6 g/dL (6.4-8.2) 07/25/19 06:37 Albumin 2.2 g/dL (3.4-5.0) L 07/25/19 06:37 Tumor Marker AFP <2.5 ng/mL (<8.1) 07/27/19 06:35 Carcinoembryonic Ag 1.5 ng/ml (See Note) 07/26/19 06:45 Procalcitonin 0.6 ng/mL 07/26/19 06:45 TSH 0.28 uIU/mL (0.36-3.74) L 07/24/19 18:10 Free T4 1.20 ng/dL (0.76-1.46) 07/24/19 18:10 Urine Color Yellow (Yellow) 07/24/19 18:40 Urine Clarity Cloudy (Clear) 07/24/19 18:40 Urine pH 6.0 (5-8) 07/24/19 18:40 Ur Specific [place] 1.010 (1.005-1.025) 07/24/19 18:40 Urine Protein 30 mg/dL (Negative) H 07/24/19 18:40 Urine Ketones Negative mg/dL (Negative) 07/24/19 18:40 Urine Blood Moderate (Negative) H 07/24/19 18:40 Urine Nitrite Positive (Negative) H 07/24/19 18:40 Urine Bilirubin Negative (Negative) 07/24/19 18:40 Urine Urobilinogen 0.2 EU/dL (Up TO 0.2) 07/24/19 18:40 Ur Leukocyte Esterase Moderate (Negative) H 07/24/19 18:40 Urine RBC Not Applicable 07/24/19 18:40 Urine WBC >50 HPF (0-5) H 07/24/19 18:40 Ur Epithelial Cells Not Applicable 07/24/19 18:40 Urine Crystals Not Applicable 07/24/19 18:40 Urine Bacteria HPF (Negative) 07/24/19 18:40 Urine Mucus Not Applicable 07/24/19 18:40 Ur Culture Indicated? Yes 07/24/19 18:40 Urine Glucose >=1000 mg/dL (Negative) H 07/24/19 18:40 COVID-19 PCR Negative (Negative) 07/24/19 21:45 Nasopharyn COVID-19 PCR Not Applicable 07/24/19 21:45 Ref Test Perform Site [facility] lab 07/24/19 21:45 Patient ABO/Rh AB Negative 07/25/19 10:55 Antibody Screen Negative 07/25/19 10:55
[2019-07-28 21:55] VITALS: BP 171/80; PULSE 56; RESP 19; TEMP 35.9; O2SAT 99
[2019-07-28] MEDS: Levothyroxine 25 MCG TAB 12.5 MCG PO (22:01)
[2019-07-28] MEDS: Melatonin 3 MG TAB 6 MG PO (22:02)
[2019-07-28] MEDS: risperiDONE 0.5 MG TAB 1.5 MG PO (22:03)
[2019-07-28] MEDS: Insulin Glargine 300 UNITS/3 ML PEN 20 UNITS SC (22:04)
[2019-07-29] MEDS: Normal Saline 1,000 ML 100 ML IV (01:50)
[2019-07-29 04:00] VITALS: BP 165/85; PULSE 61; RESP 20; TEMP 36.6; O2SAT 100
[2019-07-29] MEDS: Insulin NPH-Human 300 UNITS/3 ML PEN SC ×2 (05:00→18:37)
[2019-07-29] MEDS: Calcium 600mg/Vit D 200U TAB 1 TAB PO ×2 (05:00→18:37)
[2019-07-29] MEDS: Magnesium Chloride 64 MG TABCR PO ×2 (05:00→18:37)
[2019-07-29] MEDS: Acetaminophen 500 MG TAB 1000 MG PO ×3 (05:00→19:47)
[2019-07-29 07:37] LABS: Anion Gap 2.9 mmol/L (3-11); BUN 55 mg/dL (7-18); CO2 26.1 mmol/L (21.0-32.0); CREATININE 2.13 mg/dL (0.70-1.30); Calcium 8.7 mg/dL (8.5-10.1); Chloride 106 mmol/L (98-107); Estimated GFR 31.85 (mL/min/1.73m2); Glucose 255 mg/dL (74-106); Potassium 4.4 mmol/L (3.5-5.1); Sodium 135 mmol/L (136-145)
[2019-07-29 07:40] LABS: Abs Immature Grans 2.42 k/cumm (0.0-0.09); HCT 27.8 % (40.0-50.0); HGB 8.1 g/dL (13.5-17.5); Mean Corp. HGB Concentration 29.1 g/dL (32.0-36.0); Mean Corpuscular Hemoglobin 21.7 pg (27.0-33.0); Mean Corpuscular Volume 74.3 fL (80-95); Mean Platelet Volume 10.3 fL (8.0-11.0); Platelet Count 341 x1000/uL (130-400); RBC 3.74 m/cumm (4.50-6.00); RBC Distribution Width 16.3 % (11.8-14.1); White Blood Cell Count 18.27 k/cumm (4.4-10.8)
[2019-07-29] MEDS: Lactobacillus Acidophilus CAP 1 CAP PO ×3 (07:43→19:47)
[2019-07-29] MEDS: Normal Saline Flush 10 ML SYR 20 ML IVP ×2 (07:43→19:49)
[2019-07-29] MEDS: Venlafaxine 37.5 MG CAPCR 112.5 MG PO (07:43)
[2019-07-29] MEDS: Terazosin 2 MG CAP 4 MG PO ×2 (07:43→19:46)
[2019-07-29] MEDS: Cyanocobalamin 500 MCG TAB 1000 MCG PO (07:44)
[2019-07-29] MEDS: Sodium Bicarbonate 650 MG TAB PO ×2 (07:44→19:46)
[2019-07-29] MEDS: Ascorbic Acid 500 MG TAB 250 MG PO ×2 (07:44→19:45)
[2019-07-29] MEDS: predniSONE 10 MG TAB PO (07:44)
[2019-07-29] MEDS: Ferrous Sulfate 325 MG TAB PO ×2 (07:44→19:46)
[2019-07-29] MEDS: Furosemide 80 MG TAB PO ×2 (07:44→19:47)
[2019-07-29] MEDS: cloNIDine 0.1 MG TAB PO ×3 (07:44→19:46)
[2019-07-29] MEDS: Pantoprazole 40 MG TABCR PO (07:44)
[2019-07-29] MEDS: predniSONE 1 MG TAB 3 MG PO (07:44)
[2019-07-29] MEDS: Gabapentin 300 MG CAP PO ×3 (07:44→19:46)
[2019-07-29] MEDS: Metoprolol 25 MG TAB PO ×2 (07:44→19:47)
[2019-07-29] MEDS: Cetirizine 10 MG TAB PO (07:45)
[2019-07-29] MEDS: amLODIPine 5 MG TAB 10 MG PO (07:45)
[2019-07-29] MEDS: Protein Nutritional Supplement 16 GM 1 OUNCE PACKET PO ×3 (07:47→19:46)
[2019-07-29] MEDS: Insulin Aspart 300 UNITS/3 ML PEN SC ×4 (07:47→21:32)
[2019-07-29] MEDS: Hydrocortisone SOD SUC. 100 MG VIAL 50 MG IVP (07:47)
[2019-07-29 07:50] VITALS: PULSE 58
[2019-07-29 08:04] VITALS: BP 163/72; PULSE 58; RESP 18; TEMP 36.9; O2SAT 96
[2019-07-29 08:06] LABS: Absolute Eosinophil Count 0.18 k/cumm (0.0-0.7); Absolute Lymphocyte Count 1.28 k/cumm (1.2-3.4); Absolute Monocyte Count 0.73 k/cumm (0.11-0.7); Anisocytosis 2+; Diff Comment Manual Differential; Nucleated RBC 1 /100WBC
[2019-07-29 08:07] LABS: Basophilic Stippling Present; Hypochromasia 3+; Microcytosis 3+; Ovalocytes 2+; Poikilocytes 2+; Polychromasia Present
[2019-07-29] MEDS: MEROPENEM 1 GM in Normal Saline 100 ML IVPB ×2 (09:43→21:33)
[2019-07-29 11:33] VITALS: BP 160/72; PULSE 48; RESP 20; TEMP 36.7; O2SAT 94
--- NOTE | 2019-07-29 11:45 | W.NUTCONSULT ---
Date of service: 07/29/19 Time of Service: 11:46 Nutritional Consult ASSESSMENT: Nutrition Consult received for optimal wound healing with stage 4 pressure wound on sacrum. Nutritional recommendations provided 07/27/19 note. Refer to previous note for nutrient needs for optimal wound healing. Currently meeting 100% nutrient, vitamin needs for optimal wound healing. Receiving liquid protein 1 oz TID providing additional 45 g protein per day, receiving double protein portions at lunch and dinner, meds include MVI, 500 mg Vit C BID and 220 mg Zinc Sulfate (x 30 days). Will continue to monitor and adjust meals, supplements as warranted. Time Spent in Nutritional Counseling and Treatment: 10
--- NOTE | 2019-07-29 11:48 | W.PM.PROGNOT ---
Date of Service Date of service: 07/29/19 Time of Service: 11:49 Assessment and Plan Assessment and plan (1) Decubitus ulcer, stage 4 with infection: Status: Acute Assessment and plan: Wound VAC in place. Pictures of the sacral ulcer prior to application continue to show a very deep ulcer. Less bleeding in the past 24 hours. Continue current wound management. Pain management seems adequate. (2) MRSA bacteremia: Status: Acute Assessment and plan: Probable source is decubitus ulcer. Blood cultures from July 26 remain no growth to date. Continue vancomycin. Per infectious disease recommendations, MRSA treatment (vancomycin) for 4 weeks. (3) ESBL (extended spectrum beta-lactamase) producing bacteria infection: Status: Acute Assessment and plan: Continues on meropenem. No urinary complaints. He does not have an indwelling [place] catheter. Plan on treating for 7 days with meropenem and then stopping treatment for the E. coli. (4) CAD (coronary artery disease): Status: Chronic Assessment and plan: No anginal symptoms. Continues on beta-lia, calcium channel lia but no antiplatelet agent at this time because of his bleeding. Once his bleeding has stopped, can consider antiplatelet versus anticoagulation as noted below. (5) Rheumatoid arthritis: Status: Chronic Assessment and plan: Mostly burned-out. Prednisone dose remains at outpatient with stress dose steroids being slowly tapered. Drop the dose further today. (6) Adrenal insufficiency: Status: Chronic Assessment and plan: Parenteral hydrocortisone being weaned. Dose reduction to 25 mg twice daily today. Slow taper to continue. (7) Hyperkalemia: Status: Acute Assessment and plan: I am attributing this to his chronic kidney disease. Veltassa restarted with improvement in potassium level. Continue to monitor potassium level. (8) Atrial flutter, paroxysmal: Status: Chronic Assessment and plan: No recurrence on telemetry, just sinus bradycardia. I think telemetry can stop. Anticoagulation for past DVT and history of A. fib on hold because of bleeding. Bleeding is slowing down and perhaps we can restart Eliquis at 2.5 mg twice daily within 1 week. Continue metoprolol at current dose. (9) Diabetes mellitus: Status: Chronic Assessment and plan: Blood sugars still high. Lantus dose increased. Continue to monitor blood sugar response. NPH dose titrating down as his hydrocortisone dose is weaned. 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 He will not tolerate compression stockings or sequential compression stockings. (11) Acute kidney injury superimposed on chronic kidney disease: Status: Acute Assessment and plan: BUN and creatinine a bit better today. Continue to monitor with efforts at resuming outpatient dose of diuretics, continue to monitor vancomycin level, continue to monitor BUN and creatinine. (12) Bradycardia: Status: Chronic Assessment and plan: Asymptomatic and I do not think this necessitates dropping his beta-lia dose. This is been stable without symptoms. I am discontinuing telemetry. (13) CHF (congestive heart failure): Status: Chronic Assessment and plan: Thus far no decompensation. Still mildly edematous. Resume outpatient dose of furosemide. (14) Hypoventilation associated with obesity syndrome: Status: Acute Assessment and plan: Tolerating BiPAP support. No changes planned in management at this time. (15) Hypertension: Status: Chronic Assessment and plan: Blood pressure trending high. Follow with resumption of twice daily furosemide with his current medications. Qualifiers: Hypertension type: essential hypertension Qualified Code(s): I10 - Essential (primary) hypertension (16) Ulcer of left lower leg: Status: Chronic Assessment and plan: Does not appear to be cellulitic. Topical wound care with Mepilex change 3 times per week to continue. Subjective Subjective Interval history since last seen: Complains only of being tired. A little bit of pain in the sacral area. Less bleeding from the sacral ulcer. Wound VAC placed without event yesterday. Left negro wound being treated with Mepilex. Images of these regions feel clean granulation base with no purulent discharge after gentle cleaning. He denies shortness of breath, chest pain, stomach upset or dysuria. His blood sugars are still running high as is his blood pressure. He continues to have sinus bradycardia with no recurrence of A. fib or flutter on telemetry. His Eliquis remains on hold because of the bleeding from the sacral ulcer which seems to be slowing down substantially. Potassium is down within the normal range. His BUN and creatinine are approaching his recent personal best values. His white blood cell count is down slightly. Exam Narrative Exam Narrative: Once again sleepy but arousable and his responses are appropriate. He does not appear in any distress. No fever. Blood pressure as high as 160/72 pulse is low was mid 40s, SaO2 on room air 94%. No facial asymmetry. I cannot see his neck with his leonard and skin folds. Lungs clear in the upper lung field slightly diminished at the right base but no crackles or wheeze, better aeration left base. Regular heart rhythm no murmur S3 or S4. Active bowel sounds with no abdominal tenderness. Dressing in the sacral area was not removed. Photograph of the ulcer from yesterday shows a clean granulation base. Dressing on the left negro was not removed. Chronic deformities of his hands from rheumatoid arthritis. 1+ pulses in the feet. Assist with rolling in bed. Objective Objective Clinical Data: Abnormal lab results 07/29/19 07/29/19 Range/Units 06:45 06:45 WBC 18.27 H (4.4-10.8) k/cumm RBC 3.74 L (4.50-6.00) m/cumm Hgb 8.1 L (13.5-17.5) g/dL Hct 27.8 L (40.0-50.0) % MCV 74.3 L (80-95) fL MCH 21.7 L (27.0-33.0) pg MCHC 29.1 L (32.0-36.0) g/dL RDW 16.3 H (11.8-14.1) % Absolute Neutrophils 13.70 H (1.2-6.7) k/cumm Absolute Monocytes 0.73 H (0.11-0.7) k/cumm Sodium 135 L (136-145) mmol/L Anion Gap 2.9 L (3-11) mmol/L BUN 55 H (7-18) mg/dL Creatinine 2.13 H (0.70-1.30) mg/dL Glucose 255 H (74-106) mg/dL Vital Signs Temperature 36.7 C 07/29/19 11:33 Temperature Source Tympanic 07/29/19 11:33 Pulse 48 L 07/29/19 11:33 Pulse Rhythm Regular 07/29/19 08:00 Pulse 69 07/24/19 21:40 Respiratory Rate 20 07/29/19 11:33 Respiratory Effort Short of Breath 07/29/19 08:00 Respiratory Depth Normal 07/29/19 08:00 Respiratory Pattern Normal 07/29/19 08:00 Blood Pressure 160/72 H 07/29/19 11:33 Blood Pressure Mean 77 07/24/19 21:31 Blood Pressure Position Supine 07/24/19 17:19 Pulse Oximetry 94 L 07/29/19 11:33 Oxygen Delivery Method Room Air 07/29/19 11:33 Oxygen Flow Rate 0 07/29/19 11:33 Pain Level 10 07/29/19 11:33 Comment 07/29/19 08:04 Intake & Output 07/28/19 07/28/19 07/29/19 11:59 23:59 11:59 Intake Total 2801.667 / 4271.667 1470 / 4271.667 880 / 880 Output Total 2480 / 4430 1950 / 4430 1700 / 1700 Balance 321.667 / -158.333 -480 / -158.333 -820 / -820 Weight 99 g 100.1 kg Intake: IV 2071.667 / 3341.667 1270 / 3341.667 200 / 200 Oral 730 / 930 200 / 930 680 / 680 Output: Urine 1550 / 2700 1150 / 2700 1350 / 1350 Post Void Residual 280 / 280 Stool 650 / 1450 800 / 1450 350 / 350 Other: Urine Color Straw Yellow Pale Yellow Urine Appearance Cloudy Clear Cloudy Urine Odor Strong Normal None Stool Characteristics Formed Voiding Methods Urinal Toilet Urinal Laboratory Results WBC 18.27 k/cumm (4.4-10.8) H 07/29/19 06:45 RBC 3.74 m/cumm (4.50-6.00) L 07/29/19 06:45 Hgb 8.1 g/dL (13.5-17.5) L 07/29/19 06:45 Hct 27.8 % (40.0-50.0) L 07/29/19 06:45 MCV 74.3 fL (80-95) L 07/29/19 06:45 MCH 21.7 pg (27.0-33.0) L 07/29/19 06:45 MCHC 29.1 g/dL (32.0-36.0) L 07/29/19 06:45 RDW 16.3 % (11.8-14.1) H 07/29/19 06:45 Plt Count 341 x1000/uL (130-400) 07/29/19 06:45 MPV 10.3 fL (8.0-11.0) 07/29/19 06:45 Immature Gran % See Differential 07/29/19 06:45 Neutrophils % 68.0 07/29/19 06:45 Band Neutrophils % 7.0 % 07/29/19 06:45 Lymphocytes % 7.0 07/29/19 06:45 Monocytes % 4.0 07/29/19 06:45 Eosinophils % 1.0 07/29/19 06:45 Basophils % 0.0 07/29/19 06:45 Metamyelocytes % 5.0 % 07/29/19 06:45 Myelocytes % 8.0 % 07/29/19 06:45 Absolute Neutrophils 13.70 k/cumm (1.2-6.7) H 07/29/19 06:45 Absolute Lymphocytes 1.28 k/cumm (1.2-3.4) 07/29/19 06:45 Absolute Monocytes 0.73 k/cumm (0.11-0.7) H 07/29/19 06:45 Absolute Eosinophils 0.18 k/cumm (0.0-0.7) 07/29/19 06:45 Absolute Basophils 0.00 k/cumm (0.0-0.2) 07/29/19 06:45 Nucleated RBCs 1 /100WBC 07/29/19 06:45 Differential Comment Manual differential 07/29/19 06:45 RBC Morphology See below 07/29/19 06:45 Polychromasia Present 07/29/19 06:45 Hypochromasia 3+ 07/29/19 06:45 Poikilocytosis 2+ 07/29/19 06:45 Basophilic Stippling Present 07/29/19 06:45 Anisocytosis 2+ 07/29/19 06:45 Microcytosis 3+ 07/29/19 06:45 Ovalocytes 2+ 07/29/19 06:45 ESR 55 mm/hr (1-20) H 07/24/19 18:10 PT 10.8 sec (9.3-11.0) 07/24/19 18:10 INR 1.1 (0.9-1.1) 07/24/19 18:10 APTT 26.4 sec (21.0-31.4) 07/24/19 18:10 Sodium 135 mmol/L (136-145) L 07/29/19 06:45 Potassium 4.4 mmol/L (3.5-5.1) 07/29/19 06:45 Chloride 106 mmol/L (98-107) 07/29/19 06:45 Carbon Dioxide 26.1 mmol/L (21.0-32.0) 07/29/19 06:45 Anion Gap 2.9 mmol/L (3-11) L 07/29/19 06:45 BUN 55 mg/dL (7-18) H 07/29/19 06:45 Creatinine 2.13 mg/dL (0.70-1.30) H 07/29/19 06:45 Estimated GFR/1.73 m2 31.85 (mL/min/1.73m2) 07/29/19 06:45 Glucose 255 mg/dL (74-106) H 07/29/19 06:45 Lactate 1.0 mmol/L (0.6-1.4) 07/24/19 18:10 Calcium 8.7 mg/dL (8.5-10.1) 07/29/19 06:45 Magnesium 2.3 mg/dL (1.8-2.4) 07/26/19 06:45 Iron 14 ug/dL (65-175) L 07/24/19 18:00 TIBC 154 ug/dL (250-450) L 07/24/19 18:00 Ferritin 369 ng/mL (26-388) 07/25/19 06:37 Total Bilirubin 0.3 mg/dL (0.2-1.0) 07/25/19 06:37 AST 8 U/L (15-37) L 07/25/19 06:37 ALT 13 U/L (16-63) L 07/25/19 06:37 Alkaline Phosphatase 117 U/L (46-116) H 07/25/19 06:37 C-Reactive Protein 4.84 mg/dL (0.0-0.3) H 07/26/19 06:45 Total Protein 6.6 g/dL (6.4-8.2) 07/25/19 06:37 Albumin 2.2 g/dL (3.4-5.0) L 07/25/19 06:37 Tumor Marker AFP <2.5 ng/mL (<8.1) 07/27/19 06:35 Carcinoembryonic Ag 1.5 ng/ml (See Note) 07/26/19 06:45 Procalcitonin 0.6 ng/mL 07/26/19 06:45 TSH 0.28 uIU/mL (0.36-3.74) L 07/24/19 18:10 Free T4 1.20 ng/dL (0.76-1.46) 07/24/19 18:10 Urine Color Yellow (Yellow) 07/24/19 18:40 Urine Clarity Cloudy (Clear) 07/24/19 18:40 Urine pH 6.0 (5-8) 07/24/19 18:40 Ur Specific [place] 1.010 (1.005-1.025) 07/24/19 18:40 Urine Protein 30 mg/dL (Negative) H 07/24/19 18:40 Urine Ketones Negative mg/dL (Negative) 07/24/19 18:40 Urine Blood Moderate (Negative) H 07/24/19 18:40 Urine Nitrite Positive (Negative) H 07/24/19 18:40 Urine Bilirubin Negative (Negative) 07/24/19 18:40 Urine Urobilinogen 0.2 EU/dL (Up TO 0.2) 07/24/19 18:40 Ur Leukocyte Esterase Moderate (Negative) H 07/24/19 18:40 Urine RBC Not Applicable 07/24/19 18:40 Urine WBC >50 HPF (0-5) H 07/24/19 18:40 Ur Epithelial Cells Not Applicable 07/24/19 18:40 Urine Crystals Not Applicable 07/24/19 18:40 Urine Bacteria HPF (Negative) 07/24/19 18:40 Urine Mucus Not Applicable 07/24/19 18:40 Ur Culture Indicated? Yes 07/24/19 18:40 Urine Glucose >=1000 mg/dL (Negative) H 07/24/19 18:40 COVID-19 PCR Negative (Negative) 07/24/19 21:45 Nasopharyn COVID-19 PCR Not Applicable 07/24/19 21:45 Ref Test Perform Site [facility] lab 07/24/19 21:45 Patient ABO/Rh AB Negative 07/25/19 10:55 Antibody Screen Negative 07/25/19 10:55
--- NOTE | 2019-07-29 12:36 | W.PM.PROGNOT ---
Date of Service Date of service: 07/29/19 Time of Service: 12:37 Assessment and Plan Assessment and plan (1) Ulcer of left lower leg: Status: Chronic (2) History of DVT (deep vein thrombosis): Status: Acute (3) ESBL (extended spectrum beta-lactamase) producing bacteria infection: Status: Acute (4) Chronic iron deficiency anemia: Status: Acute (5) MRSA bacteremia: Status: Acute (6) Open wound of left lower extremity without complication: Status: Acute (7) Old non-ST elevation myocardial infarction (NSTEMI): Status: Acute (8) Protein-calorie malnutrition, mild: Status: Acute (9) Decubitus ulcer, stage 4 with infection: Status: Acute (10) Decubitus ulcer of sacral region, stage 4: Status: Acute Assessment and plan: -vac in place and functioning. Wound looks good. Will cont to follow -4wks IV vanco -wean steriods -awaiting path results -PT -nutritional support. -IV iron to augment /support hgb -cont to hold anti-coags. from sx standpoint. Wound still bled quite readily yest and stitch had to be placed. Will follow for wound care. -watch for C. diff and yeast. (11) S/P proctocolectomy: Status: Acute Objective Objective Clinical Data: Abnormal lab results 07/29/19 07/29/19 Range/Units 06:45 06:45 WBC 18.27 H (4.4-10.8) k/cumm RBC 3.74 L (4.50-6.00) m/cumm Hgb 8.1 L (13.5-17.5) g/dL Hct 27.8 L (40.0-50.0) % MCV 74.3 L (80-95) fL MCH 21.7 L (27.0-33.0) pg MCHC 29.1 L (32.0-36.0) g/dL RDW 16.3 H (11.8-14.1) % Absolute Neutrophils 13.70 H (1.2-6.7) k/cumm Absolute Monocytes 0.73 H (0.11-0.7) k/cumm Sodium 135 L (136-145) mmol/L Anion Gap 2.9 L (3-11) mmol/L BUN 55 H (7-18) mg/dL Creatinine 2.13 H (0.70-1.30) mg/dL Glucose 255 H (74-106) mg/dL Vital Signs Temperature 36.7 C 07/29/19 11:33 Temperature Source Tympanic 07/29/19 11:33 Pulse 48 L 07/29/19 11:33 Pulse Rhythm Regular 07/29/19 08:00 Pulse 69 07/24/19 21:40 Respiratory Rate 20 07/29/19 11:33 Respiratory Effort Short of Breath 07/29/19 08:00 Respiratory Depth Normal 07/29/19 08:00 Respiratory Pattern Normal 07/29/19 08:00 Blood Pressure 160/72 H 07/29/19 11:33 Blood Pressure Mean 77 07/24/19 21:31 Blood Pressure Position Supine 07/24/19 17:19 Pulse Oximetry 94 L 07/29/19 11:33 Oxygen Delivery Method Room Air 07/29/19 11:33 Oxygen Flow Rate 0 07/29/19 11:33 Pain Level 10 07/29/19 11:33 Comment 07/29/19 08:04 Intake & Output 07/28/19 07/29/19 07/29/19 23:59 11:59 23:59 Intake Total 1470 / 4271.667 880 / 880 Output Total 1950 / 4430 1700 / 1700 Balance -480 / -158.333 -820 / -820 Weight 100.1 kg Intake: IV 1270 / 3341.667 200 / 200 Oral 200 / 930 680 / 680 Output: Urine 1150 / 2700 1350 / 1350 Stool 800 / 1450 350 / 350 Other: Urine Color Yellow Pale Yellow Urine Appearance Clear Cloudy Urine Odor Normal None Stool Characteristics Formed Voiding Methods Toilet Urinal Laboratory Results WBC 18.27 k/cumm (4.4-10.8) H 07/29/19 06:45 RBC 3.74 m/cumm (4.50-6.00) L 07/29/19 06:45 Hgb 8.1 g/dL (13.5-17.5) L 07/29/19 06:45 Hct 27.8 % (40.0-50.0) L 07/29/19 06:45 MCV 74.3 fL (80-95) L 07/29/19 06:45 MCH 21.7 pg (27.0-33.0) L 07/29/19 06:45 MCHC 29.1 g/dL (32.0-36.0) L 07/29/19 06:45 RDW 16.3 % (11.8-14.1) H 07/29/19 06:45 Plt Count 341 x1000/uL (130-400) 07/29/19 06:45 MPV 10.3 fL (8.0-11.0) 07/29/19 06:45 Immature Gran % See Differential 07/29/19 06:45 Neutrophils % 68.0 07/29/19 06:45 Band Neutrophils % 7.0 % 07/29/19 06:45 Lymphocytes % 7.0 07/29/19 06:45 Monocytes % 4.0 07/29/19 06:45 Eosinophils % 1.0 07/29/19 06:45 Basophils % 0.0 07/29/19 06:45 Metamyelocytes % 5.0 % 07/29/19 06:45 Myelocytes % 8.0 % 07/29/19 06:45 Absolute Neutrophils 13.70 k/cumm (1.2-6.7) H 07/29/19 06:45 Absolute Lymphocytes 1.28 k/cumm (1.2-3.4) 07/29/19 06:45 Absolute Monocytes 0.73 k/cumm (0.11-0.7) H 07/29/19 06:45 Absolute Eosinophils 0.18 k/cumm (0.0-0.7) 07/29/19 06:45 Absolute Basophils 0.00 k/cumm (0.0-0.2) 07/29/19 06:45 Nucleated RBCs 1 /100WBC 07/29/19 06:45 Differential Comment Manual differential 07/29/19 06:45 RBC Morphology See below 07/29/19 06:45 Polychromasia Present 07/29/19 06:45 Hypochromasia 3+ 07/29/19 06:45 Poikilocytosis 2+ 07/29/19 06:45 Basophilic Stippling Present 07/29/19 06:45 Anisocytosis 2+ 07/29/19 06:45 Microcytosis 3+ 07/29/19 06:45 Ovalocytes 2+ 07/29/19 06:45 ESR 55 mm/hr (1-20) H 07/24/19 18:10 PT 10.8 sec (9.3-11.0) 07/24/19 18:10 INR 1.1 (0.9-1.1) 07/24/19 18:10 APTT 26.4 sec (21.0-31.4) 07/24/19 18:10 Sodium 135 mmol/L (136-145) L 07/29/19 06:45 Potassium 4.4 mmol/L (3.5-5.1) 07/29/19 06:45 Chloride 106 mmol/L (98-107) 07/29/19 06:45 Carbon Dioxide 26.1 mmol/L (21.0-32.0) 07/29/19 06:45 Anion Gap 2.9 mmol/L (3-11) L 07/29/19 06:45 BUN 55 mg/dL (7-18) H 07/29/19 06:45 Creatinine 2.13 mg/dL (0.70-1.30) H 07/29/19 06:45 Estimated GFR/1.73 m2 31.85 (mL/min/1.73m2) 07/29/19 06:45 Glucose 255 mg/dL (74-106) H 07/29/19 06:45 Lactate 1.0 mmol/L (0.6-1.4) 07/24/19 18:10 Calcium 8.7 mg/dL (8.5-10.1) 07/29/19 06:45 Magnesium 2.3 mg/dL (1.8-2.4) 07/26/19 06:45 Iron 14 ug/dL (65-175) L 07/24/19 18:00 TIBC 154 ug/dL (250-450) L 07/24/19 18:00 Ferritin 369 ng/mL (26-388) 07/25/19 06:37 Total Bilirubin 0.3 mg/dL (0.2-1.0) 07/25/19 06:37 AST 8 U/L (15-37) L 07/25/19 06:37 ALT 13 U/L (16-63) L 07/25/19 06:37 Alkaline Phosphatase 117 U/L (46-116) H 07/25/19 06:37 C-Reactive Protein 4.84 mg/dL (0.0-0.3) H 07/26/19 06:45 Total Protein 6.6 g/dL (6.4-8.2) 07/25/19 06:37 Albumin 2.2 g/dL (3.4-5.0) L 07/25/19 06:37 Tumor Marker AFP <2.5 ng/mL (<8.1) 07/27/19 06:35 Carcinoembryonic Ag 1.5 ng/ml (See Note) 07/26/19 06:45 Procalcitonin 0.6 ng/mL 07/26/19 06:45 TSH 0.28 uIU/mL (0.36-3.74) L 07/24/19 18:10 Free T4 1.20 ng/dL (0.76-1.46) 07/24/19 18:10 Urine Color Yellow (Yellow) 07/24/19 18:40 Urine Clarity Cloudy (Clear) 07/24/19 18:40 Urine pH 6.0 (5-8) 07/24/19 18:40 Ur Specific [place] 1.010 (1.005-1.025) 07/24/19 18:40 Urine Protein 30 mg/dL (Negative) H 07/24/19 18:40 Urine Ketones Negative mg/dL (Negative) 07/24/19 18:40 Urine Blood Moderate (Negative) H 07/24/19 18:40 Urine Nitrite Positive (Negative) H 07/24/19 18:40 Urine Bilirubin Negative (Negative) 07/24/19 18:40 Urine Urobilinogen 0.2 EU/dL (Up TO 0.2) 07/24/19 18:40 Ur Leukocyte Esterase Moderate (Negative) H 07/24/19 18:40 Urine RBC Not Applicable 07/24/19 18:40 Urine WBC >50 HPF (0-5) H 07/24/19 18:40 Ur Epithelial Cells Not Applicable 07/24/19 18:40 Urine Crystals Not Applicable 07/24/19 18:40 Urine Bacteria HPF (Negative) 07/24/19 18:40 Urine Mucus Not Applicable 07/24/19 18:40 Ur Culture Indicated? Yes 07/24/19 18:40 Urine Glucose >=1000 mg/dL (Negative) H 07/24/19 18:40 COVID-19 PCR Negative (Negative) 07/24/19 21:45 Nasopharyn COVID-19 PCR Not Applicable 07/24/19 21:45 Ref Test Perform Site [facility] lab 07/24/19 21:45 Patient ABO/Rh AB Negative 07/25/19 10:55 Antibody Screen Negative 07/25/19 10:55
--- NOTE | 2019-07-29 12:49 | CMPROGNOTE_ITS ---
Care Management Progress Note S/O: Brendan was lying in bed when CM met with him. He has been dozing much of the day but woke up briefly this afternoon and stated that he was feeling OK. He denies pain. This morning Brendan had a triple lumen PICC inserted to facilitate the senior living antibiotic regimen he will require. A: Brendan is a 59 year old man admitted from the [facility] on 07/24/19 with UTI and a sacral ulcer P: Brendan will need senior living IV antibiotic therapy to treat the infected decubitus ulcer he presented with. Since the [facility] is unable to provide this s ervice, he will likely need to transition to SB-1 status at some point. Ultimately, Brendan will return to the [facility] when treatment is complete. CM will continue to support Brendan and his discharge planning concerns and will update his sister as needed.
--- NOTE | 2019-07-29 12:49 | PDOC.CMPRO ---
Care Management Progress Note S/O: Brendan was lying in bed when CM met with him. He has been dozing much of the day but woke up briefly this afternoon and stated that he was feeling OK. He denies pain. This morning Brendan had a triple lumen PICC inserted to facilitate the [facility] antibiotic regimen he will require. A: Brendan is a 59 year old man admitted from the [facility] on 07/24/19 with UTI and a sacral ulcer P: Brendan will need [facility]p IV antibiotic therapy to treat the infected decubitus ulcer he presented with. Since the [facility] is unable to provide this service, he will likely need to transition to SB-1 status at some point. Ultimately, Brendan will return to the [facility] when treatment is complete. CM will continue to support Brendan and his discharge planning concerns and will update his sister as needed.
[2019-07-29 13:02] LABS: Iron 42 ug/dL (65-175); Total Iron Binding Capacity 157 ug/dL (250-450); Transferrin Sat 27 % (20-55)
[2019-07-29 13:16] LABS: Ferritin 660 ng/mL (26-388)
[2019-07-29 13:44] LABS: Vancomycin, Trough 15.1 ug/mL (10.0-20.0)
[2019-07-29 14:30] VITALS: BP 135/75; PULSE 58; RESP 18; TEMP 36.3; O2SAT 100
[2019-07-29] MEDS: oxyCODONE 5 MG TAB PO (14:36)
[2019-07-29] MEDS: VANCOMYCIN 1,000 MG in Normal Saline 250 ML 167 MG IV (14:36)
--- NOTE | 2019-07-29 15:04 | CHAPLAIN ---
Brendan was in bed. He has a wound vac on now. He said he doesn't remember when it was put on. He seemed tired today. His wound in on his lower back and he said it makes it uncomfortable to sleep, and he has trouble sleeping on his side. Brendan is well known to [facility] staff after repeated admissions.
[2019-07-29 19:40] VITALS: BP 180/75; PULSE 70; RESP 18; TEMP 34.9; O2SAT 96
[2019-07-29] MEDS: Hydrocortisone SOD SUC. 100 MG VIAL 25 MG IVP (19:44)
[2019-07-29] MEDS: Nystatin POWDER 15 GM JAR TP (19:48)
[2019-07-29] MEDS: IRON SUCROSE COMPLEX 200 MG in Normal Saline 100 ML 400 MG IVPB (20:42)
[2019-07-29] MEDS: Mylanta Suspension 30 ML CUP PO (21:29)
[2019-07-29] MEDS: Insulin Glargine 300 UNITS/3 ML PEN 30 UNITS SC (21:32)
[2019-07-29] MEDS: Levothyroxine 25 MCG TAB 12.5 MCG PO (21:34)
[2019-07-29] MEDS: risperiDONE 0.5 MG TAB 1.5 MG PO (21:35)
[2019-07-29] MEDS: Melatonin 3 MG TAB 6 MG PO (21:38)
[2019-07-29] MEDS: Ondansetron 4 MG/2 ML VIAL IVP (23:33)
[2019-07-29] MEDS: Normal Saline Flush 10 ML SYR IVP (23:34)
[2019-07-29] MEDS: LORazepam 1 MG TAB PO (23:58)
[2019-07-30] VITALS (37 sets, daily range): BP systolic 84–160; BP diastolic 34–77; PULSE 53–82; RESP 11–25; TEMP 36–36.7; O2SAT 88–100
[2019-07-30] MEDS: MORPHine 2 MG/ML SYR IVP ×2 (00:22→07:58)
[2019-07-30] MEDS: Calcium 600mg/Vit D 200U TAB 1 TAB PO (06:05)
[2019-07-30] MEDS: Magnesium Chloride 64 MG TABCR PO (06:05)
[2019-07-30] MEDS: Acetaminophen 500 MG TAB 1000 MG PO (06:05)
[2019-07-30] MEDS: Insulin NPH-Human 300 UNITS/3 ML PEN SC ×2 (06:06→18:36)
[2019-07-30 06:41] LABS: Abs Immature Grans 3.19 k/cumm (0.0-0.09); HCT 30.4 % (40.0-50.0); Mean Corp. HGB Concentration 29.6 g/dL (32.0-36.0); Mean Corpuscular Hemoglobin 21.7 pg (27.0-33.0); Mean Corpuscular Volume 73.4 fL (80-95); Mean Platelet Volume 9.9 fL (8.0-11.0); Platelet Count 355 x1000/uL (130-400); RBC 4.14 m/cumm (4.50-6.00); RBC Distribution Width 16.7 % (11.8-14.1)
[2019-07-30 06:44] LABS: Anion Gap 5.1 mmol/L (3-11); BUN 59 mg/dL (7-18); CO2 27.9 mmol/L (21.0-32.0); CREATININE 2.22 mg/dL (0.70-1.30); Calcium 8.9 mg/dL (8.5-10.1); Chloride 103 mmol/L (98-107); Estimated GFR 30.37 (mL/min/1.73m2); Glucose 198 mg/dL (74-106); Potassium 3.2 mmol/L (3.5-5.1); Sodium 136 mmol/L (136-145)
[2019-07-30 07:16] LABS: Absolute Neutrophil Count 18.78 k/cumm (1.2-6.7)
[2019-07-30 07:17] LABS: Diff Comment Manual Differential; Nucleated RBC 2 /100WBC
[2019-07-30 07:18] LABS: Hypochromasia 2+; Microcytosis 2+
[2019-07-30 07:19] LABS: Poikilocytes 2+
[2019-07-30] MEDS: Normal Saline Flush 10 ML SYR 20 ML IVP ×2 (07:59→20:50)
[2019-07-30] MEDS: Ondansetron 4 MG/2 ML VIAL IVP (07:59)
[2019-07-30 08:37] LABS: BE 0.7 mmol/L (-3-3); HCO3 27 mmol/L (22-28); pCO2 53 mmHg (34-47); pH 7.32 (7.35-7.45); pO2 117 mmHg (83-108); sO2 99 % (94-98); tCO2 26 mmol/L (22-29)
[2019-07-30] MEDS: Pantoprazole 40 MG VIAL IVP (08:39)
[2019-07-30 08:40] LABS: FIO2L 2 L; Site Left Radial
[2019-07-30] MEDS: VANCOMYCIN 1,000 MG in Normal Saline 250 ML 167 MG IV (08:40)
[2019-07-30] MEDS: Normal Saline Flush 10 ML SYR IVP ×4 (08:41→15:50)
--- NOTE | 2019-07-30 08:44 | DI.RAD_ITS ---
EXAM: XR PORTABLE CHEST AP CLINICAL HISTORY: possible aspiration TECHNIQUE: COMPARISON: CR,XR XR PORTABLE CHEST AP from 07/23/2019 FINDINGS: There is a PICC line in position, the tip which lies in superior vena cava. There is a poor inspirat ion. Heart is enlarged. No focal intrapulmonary infiltrate seen. IMPRESSION: No evidence of acute process.
[2019-07-30] MEDS: Lidocaine 2% Jelly 6 ML SYR (09:15)
--- NOTE | 2019-07-30 09:42 | CMPROGNOTE_ITS ---
- If Service Date Differs Date of service: 07/30/19 Time of Service: 09:42 Care Management Progress Note S/O: Brendan was transferred to the ICU this morning following a night of repeated episodes of vomiting. His WBC is elevated at 25,000 and he had evidence of gross pyuria, per provider, when a ruiz catheter was inserted. Brendan was also complaining of abdominal pain, however there was no definitive evidence of a SBO noted on XRAY. A nasogastric tube was inserted this morning, however Brendan found it uncomfortable and insisted that it be removed. Blood and urine cultures have been obtained. CM was unable to meet with Brendan in person as he had numerous studies and interventions during the morning and was asleep following pain medication this afternoon. CM called Brendan Beal's sister and updated her. A: Brendan is a 59 year old man admitted from the [facility] on 07/24/19 with UTI and a sacral ulcer P: Brendan will need buttermaker continuous churn IV antibiotic therapy to treat the infected decubitus ulcer he presented with. Since the [facility] is unable to provide this service, he will likely need to transition to SB-1 status at some point. Ultimately, Brendan will return to the [facility] when treatment is complete. CM will continue to support Brendan and his discharge planning concerns and will update his sister as needed.
[2019-07-30] MEDS: FLUCONAZOLE 200 MG/100 ML BAG 100 MG IVPB (09:55)
[2019-07-30 09:56] LABS: Lactate 1.3 mmol/L (0.6-1.4)
[2019-07-30] MEDS: Normal Saline 1,000 ML 1000 ML IV (09:56)
[2019-07-30 10:13] LABS: Anion Gap 3.9 mmol/L (3-11); BUN 58 mg/dL (7-18); CO2 28.1 mmol/L (21.0-32.0); CREATININE 2.12 mg/dL (0.70-1.30); Calcium 8.8 mg/dL (8.5-10.1); Chloride 105 mmol/L (98-107); Estimated GFR 32.02 (mL/min/1.73m2); Glucose 171 mg/dL (74-106); Magnesium 1.6 mg/dL (1.8-2.4); Potassium 3.2 mmol/L (3.5-5.1); Sodium 137 mmol/L (136-145)
--- NOTE | 2019-07-30 10:14 | DI.RAD_ITS ---
EXAM: XR ABDOMEN FLAT PLATE CLINICAL HISTORY: recurrent vomiting, assess for obstruction TECHNIQUE: COMPARISON: No exams were available for comparison FINDINGS: Three views were obtained. Moderate nonspecific small and large bowel dilatation consistent with ile us. Please see today's CT scan report. IMPRESSION:
[2019-07-30] MEDS: Normal Saline 250 ML 200 ML IV (10:20)
[2019-07-30 10:22] LABS: Troponin I < 0.05 ng/mL (<0.06)
--- NOTE | 2019-07-30 10:24 | NUR.NOTE ---
Nursing Note: . Dr Gan in to see Patient. Concerns and assessments are communicated to the provider. , Stat orders are issued for rt to perform. He has ordered to hold insulin r/t patient refusing meal and po meds. He gives orders to transfer patient to ICU. Iv abx and pantoprozole was given, report given to ICU nurse and patient transferred to ICU at around 910
[2019-07-30 10:39] LABS: Procalcitonin 0.5 ng/mL
--- NOTE | 2019-07-30 10:42 | PGE_ITS ---
Date of Service Date of service: 07/30/19 Time of Service: 10:42 Assessment and Plan Assessment and plan (1) Vomiting: Status: Acute Assessment and plan: At this point it is unclear if his vomiting is due to a mechanical problem such as obstruction or a manifestation of infection or metabolic issue. Possible sepsis despite broad-spectrum antibiotics. If this is the case, prognosis is grave. Potential manifestation of adrenal insufficiency for which I resumed stress dose steroids. NG tube has been placed for decompression. Work-up initiated for bacteremia, urinary tract infection, coronary ischemia. Supportive treatment with IV fluids. Continue current antibiotics plus fluconazole as noted below. Antiemetics parenterally. (2) Decubitus ulcer, stage 4 with infection: Status: Acute Assessment and plan: Wound VAC scheduled to be changed today but given change in status this has been deferred. Still having some bloody discharge but not gross blood. Limited amount of pain. (3) MRSA bacteremia: Status: Acute Assessment and plan: Probable source is decubitus ulcer. Blood cultures from July 26 remain no growth to date. Repeat blood cultures drawn today because of change in his status. Prior to this change in status the plan was for vancomycin treatment for his MRSA bacteremia for 4 weeks. (4) ESBL (extended spectrum beta-lactamase) producing bacteria infection: Status: Acute Assessment and plan: He had not been having any urinary complaints but now has gross pyuria from his Downing catheter (inserted this morning). If this is bacterial in origin, breaking through meropenem and vancomycin suggest a very poor prognosis. Culture sent. Possible fungal infection? Possible fistulous tract? Not stable at this time for investigation with CT scan but if pyuria continues consider CT scan abdomen and pelvis looking for abscess or fistula to the bladder. He potentially is a candidate for percutaneous catheter-based drainage of an abscess if one is identified but he has not a candidate for open surgical procedure. (5) CAD (coronary artery disease): Status: Chronic Assessment and plan: He has not been having chest pain. Low probability that an acute coronary syndrome has precipitated this change in status but will check troponin and EKG. N.p.o. status now, pulse and blood pressure acceptable without morning meds. Follow hemodynamics and possible use of parenteral metoprolol depending upon blood pressure and pulse rate. (6) Adrenal insufficiency: Status: Chronic Assessment and plan: Historically has had problems with symptomatic adrenal insufficiency when under stress. I resume stress dose steroids after attempting a somewhat accelerated taper here in the hospital. He had been receiving oral prednisone at his outpatient dose as well which I am putting on hold given his n.p.o. status. (7) Hyperkalemia: Status: Acute Assessment and plan: He had been having problems with hyperkalemia, responsive to Veltassa. This was stopped earlier in the week and his potassium went back up and was resumed 2 days ago. Now again with low potassium. Veltassa on hold. Will give a 10 mg parenteral dose of potassium and recheck electrolytes. (8) Atrial flutter, paroxysmal: Status: Chronic Assessment and plan: No clinical recurrence. Had been having sinus bradycardia with his current metoprolol dose. However, in the past 12 hours his pulse rate has increased, not tachycardic. Metoprolol on hold during n.p.o. status but may need to be given parenterally if he has tachyarrhythmias. Anticoagulation has been on hold since admission because of excessive bleeding from his large sacral ulcer. (9) Diabetes mellitus: Status: Chronic Assessment and plan: Sugars may be trending down prior to his change in status. Now back on stress dose steroids. We will continue NPH because of the steroids, poor control overall so I am leaving his Lantus at the current dose an d continuing to monitor blood sugars. 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 He will not tolerate compression stockings or sequential compression stockings. (11) Acute kidney injury superimposed on chronic kidney disease: Status: Acute Assessment and plan: Little change in BUN and creatinine in the past 24 hours. Monitor urine output and labs. Bicarb therapy on hold during n.p.o. status. (12) Bradycardia: Status: Chronic Assessment and plan: A longer bradycardic which I interpret as an indicator of this change in status with increased cardiac demand. Med adjustments as noted above. (13) CHF (congestive heart failure): Status: Chronic Assessment and plan: Thus far no decompensation. Vomiting overnight and may be a little dry. Diuretic on hold. Monitor for decompensation with fluid resuscitation. (14) Hypoventilation associated with obesity syndrome: Status: Acute Assessment and plan: PaCO2 modestly elevated, mild acidemia. BiPAP support with change in status. (15) Hypertension: Status: Chronic Assessment and plan: Pressure has improved which, under the circumstances of his change in status I am not interpreting is a good sign. Amlodipine, clonidine and furosemide on hold. Metoprolol parenteral as needed. Qualifiers: Hypertension type: essential hypertension Qualified Code(s): I10 - Essential (primary) hypertension (16) Ulcer of left lower leg: Status: Chronic Assessment and plan: Does not appear to be cellulitic. Topical wound care with Mepilex change 3 times per week to continue. Subjective Subjective Interval history since last seen: Mr. Corley had repeated bouts of vomiting overnight. No witnessed episodes of aspiration but certainly at risk for this. Complained to nursing staff early this morning of diffuse mid abdominal pain. No hematemesis. No blood in his ostomy output. He received parenteral morphine which helped some with his pain but has made him more lethargic. Blood pressure has improved to a more normal range and his pulse rate is increased into a normal range which may not be good signs under the circumstances. He was trans ferred to the ICU because of the change in status. He has received a bolus of stress dose steroids, IV saline bolus. Downing catheter placed with gross pyuria obtained. Chest x-ray does not show any gross infiltrate to suggest a massive aspiration event. Plain films of the abdomen show a small loop of bowel but no free air and no gross distention with gas. He has had repeat blood and urine cultures obtained. He has been placed on BiPAP because of his lethargy and arterial blood gas showing a pH of 7.32 a PCO2 of 52.6 and a PaO2 of 117 on oxygen (2 L/min?). He is a little more alert now. He tolerated placement of NG tube. Plans for changing his sacral VAC dressing on hold for today. Exam Narrative Exam Narrative: Lethargic, initially minimal response to verbal stimuli but would open his eyes, weakly orthotic assistant on request. Slow respirations. He remains afebrile to hypothermic. Blood pressure down to 120s over 50s pulse rate in the 60-70 range. SaO2 on 1 L 96 to 97%. No obvious facial edema. Cannot see his neck veins because of positioning and skin folds. Diminished breath sounds at the bases but clear in the upper lung barnard with no crackles or wheeze. Initially a trigeminal rhythm then more regular, no S3-S4 or murmur heard. Abdomen has some asymmetric bowel sounds, few tinkles heard in the left mid to lower abdomen. Mild diffuse tenderness to palpation. Brown liquid stool in his ostomy bag. Extremities are warm, 1+ pulses at the wrist, difficult to feel in his feet. He has patches of dry scaly erythematous skin on the left leg. I did not remove the dressing from his left negro. Objective Objective Clinical Data: Abnormal lab results EKG with sinus rhythm, occasional PAC, nonspecific lateral ST-T changes. 07/29/19 07/29/19 07/30/19 Range/Units 06:45 06:45 06:15 WBC (4.4-10.8) k/cumm RBC (4.50-6.00) m/cumm Hgb (13.5-17.5) g/dL Hct (40.0-50.0) % MCV (80-95) fL MCH (27.0-33.0) pg MCHC (32.0-36.0) g/dL RDW (11.8-14.1) % Absolute Neutrophils (1.2-6.7) k/cumm Absolute Monocytes (0.11-0.7) k/cumm ABG pH (7.35-7.45) ABG pCO2 (34-47) mmHg ABG pO2 (83-108) mmHg ABG O2 Saturation (94-98) % Sodium 135 L (136-145) mmol/L Potassium 3.2 L D (3.5-5.1) mmol/L Anion Gap 2.9 L (3-11) mmol/L BUN 55 H 59 H (7-18) mg/dL Creatinine 2.13 H 2.22 H (0.70-1.30) mg/dL Glucose 255 H 198 H (74-106) mg/dL Magnesium (1.8-2.4) mg/dL Iron 42 L (65-175) ug/dL TIBC 157 L (250-450) ug/dL Ferritin 660 H (26-388) ng/mL 07/30/19 07/30/19 07/30/19 Range/Units 06:15 08:30 09:40 WBC 25.04 H* D (4.4-10.8) k/cumm RBC 4.14 L (4.50-6.00) m/cumm Hgb 9.0 L (13.5-17.5) g/dL Hct 30.4 L (40.0-50.0) % MCV 73.4 L (80-95) fL MCH 21.7 L (27.0-33.0) pg MCHC 29.6 L (32.0-36.0) g/dL RDW 16.7 H (11.8-14.1) % Absolute Neutrophils 18.78 H (1.2-6.7) k/cumm Absolute Monocytes 1.50 H (0.11-0.7) k/cumm ABG pH 7.32 L (7.35-7.45) ABG pCO2 53 H (34-47) mmHg ABG pO2 117 H (83-108) mmHg ABG O2 Saturation 99 H (94-98) % Sodium (136-145) mmol/L Potassium 3.2 L (3.5-5.1) mmol/L Anion Gap (3-11) mmol/L BUN 58 H (7-18) mg/dL Creatinine 2.12 H (0.70-1.30) mg/dL Glucose 171 H (74-106) mg/dL Magnesium 1.6 L (1.8-2.4) mg/dL Iron (65-175) ug/dL TIBC (250-450) ug/dL Ferritin (26-388) ng/mL Vital Signs Temperature 36 C L 07/30/19 09:04 Temperature Source Tympanic 07/30/19 09:04 Pulse 63 07/30/19 09:04 Pulse Rhythm Regular 07/30/19 07:30 Pulse 69 07/24/19 21:40 Respiratory Rate 20 07/30/19 09:04 Respiratory Effort 07/30/19 07:30 Respiratory Depth Shallow 07/30/19 07:30 Respiratory Pattern Tachypnea 07/30/19 07:30 Blood Pressure 128/55 L 07/30/19 09:04 Blood Pressure Mean 77 07/24/19 21:31 Blood Pressure Position Supine 07/24/19 17:19 Pulse Oximetry 99 07/30/19 09:04 Oxygen Delivery Method Nasal Cannula 07/30/19 09:04 Oxygen Flow Rate 2 07/30/19 09:04 Pain Level 0 07/30/19 09:04 Comment 07/29/19 08:04 Intake & Output 07/29/19 07/29/19 07/30/19 11:59 23:59 11:59 Intake Total 980 / 3010 2030 / 3010 Output Total 1700 / 3750 2050 / 3750 1200 / 1200 Balance -720 / -740 -20 / -740 -1200 / -1200 Weight 100.1 kg 98.6 kg Intake: IV 300 / 1780 1480 / 1780 Oral 680 / 1230 550 / 1230 Output: Urine 1350 / 3200 1850 / 3200 500 / 500 Stool 350 / 450 100 / 450 200 / 200 Emesis 100 / 100 500 / 500 Other: Urine Color Pale Yellow Pale Yellow Urine Appearance Cloudy Clear Purulent Urine Odor None Normal Normal Comment Glydo was instilled prior to insertion at patient request. Insertion was performed using sterile technique. Patient was cleansed and prepped, after glydo was given time to take effect. Insertion was made with no discomfort to the patient noted. There was a small return of clear yellow urine, then a stream of puss was noted in the tube. Per provider order , a sample was sent to the lab. Patent refused to have a leg strap applied, collection bag was hanging on the right side of the bed Stool Occult Blood Negative Negative Stool Size Moderate Stool Characteristics Soft Emesis Description Retching Undigested Food Gastric Occult Blood Negative Voiding Methods Urinal Urinal Urinal Laboratory Results WBC 25.04 k/cumm (4.4-10.8) H* D 07/30/19 06:15 RBC 4.14 m/cumm (4.50-6.00) L 07/30/19 06:15 Hgb 9.0 g/dL (13.5-17.5) L 07/30/19 06:15 Hct 30.4 % (40.0-50.0) L 07/30/19 06:15 MCV 73.4 fL (80-95) L 07/30/19 06:15 MCH 21.7 pg (27.0-33.0) L 07/30/19 06:15 MCHC 29.6 g/dL (32.0-36.0) L 07/30/19 06:15 RDW 16.7 % (11.8-14.1) H 07/30/19 06:15 Plt Count 355 x1000/uL (130-400) 07/30/19 06:15 MPV 9.9 fL (8.0-11.0) 07/30/19 06:15 Immature Gran % 0.0 % 07/30/19 06:15 Neutrophils % 73.0 07/30/19 06:15 Band Neutrophils % 2.0 % 07/30/19 06:15 Lymphocytes % 10.0 07/30/19 06:15 Monocytes % 6.0 07/30/19 06:15 Eosinophils % 2.0 07/30/19 06:15 Basophils % 0.0 07/30/19 06:15 Metamyelocytes % 2.0 % 07/30/19 06:15 Myelocytes % 2.0 % 07/30/19 06:15 Absolute Neutrophils 18.78 k/cumm (1.2-6.7) H 07/30/19 06:15 Absolute Lymphocytes 2.50 k/cumm (1.2-3.4) 07/30/19 06:15 Absolute Monocytes 1.50 k/cumm (0.11-0.7) H 07/30/19 06:15 Absolute Eosinophils 0.50 k/cumm (0.0-0.7) 07/30/19 06:15 Absolute Basophils 0.00 k/cumm (0.0-0.2) 07/30/19 06:15 Nucleated RBCs 2 /100WBC 07/30/19 06:15 Differential Comment Manual differential 07/30/19 06:15 RBC Morphology See below 07/30/19 06:15 Polychromasia Present 07/29/19 06:45 Hypochromasia 2+ 07/30/19 06:15 Poikilocytosis 2+ 07/30/19 06:15 Basophilic Stippling Present 07/29/19 06:45 Anisocytosis 2+ 07/29/19 06:45 Microcytosis 2+ 07/30/19 06:15 Ovalocytes 2+ 07/29/19 06:45 ESR 55 mm/hr (1-20) H 07/24/19 18:10 PT 10.8 sec (9.3-11.0) 07/24/19 18:10 INR 1.1 (0.9-1.1) 07/24/19 18:10 APTT 26.4 sec (21.0-31.4) 07/24/19 18:10 ABG Sample Site Left radial 07/30/19 08:30 ABG pH 7.32 (7.35-7.45) L 07/30/19 08:30 ABG pCO2 53 mmHg (34-47) H 07/30/19 08:30 ABG pO2 117 mmHg (83-108) H 07/30/19 08:30 ABG HCO3 27 mmol/L (22-28) 07/30/19 08:30 ABG Total CO2 26 mmol/L (22-29) 07/30/19 08:30 ABG O2 Saturation 99 % (94-98) H 07/30/19 08:30 ABG Base Excess 0.7 mmol/L (-3-3) 07/30/19 08:30 Oxygen Liter Flow 2 L 07/30/19 08:30 Sodium 137 mmol/L (136-145) 07/30/19 09:40 Potassium 3.2 mmol/L (3.5-5.1) L 07/30/19 09:40 Chloride 105 mmol/L (98-107) 07/30/19 09:40 Carbon Dioxide 28.1 mmol/L (21.0-32.0) 07/30/19 09:40 Anion Gap 3.9 mmol/L (3-11) 07/30/19 09:40 BUN 58 mg/dL (7-18) H 07/30/19 09:40 Creatinine 2.12 mg/dL (0.70-1.30) H 07/30/19 09:40 Estimated GFR/1.73 m2 32.02 (mL/min/1.73m2) 07/30/19 09:40 Glucose 171 mg/dL (74-106) H 07/30/19 09:40 Lactate 1.3 mmol/L (0.6-1.4) 07/30/19 09:40 Calcium 8.8 mg/dL (8.5-10.1) 07/30/19 09:40 Magnesium 1.6 mg/dL (1.8-2.4) L 07/30/19 09:40 Iron 42 ug/dL (65-175) L 07/29/19 06:45 TIBC 157 ug/dL (250-450) L 07/29/19 06:45 Transferrin % Sat 27 % (20-55) 07/29/19 06:45 Ferritin 660 ng/mL (26-388) H 07/29/19 06:45 Total Bilirubin 0.3 mg/dL (0.2-1.0) 07/25/19 06:37 AST 8 U/L (15-37) L 07/25/19 06:37 ALT 13 U/L (16-63) L 07/25/19 06:37 Alkaline Phosphatase 117 U/L (46-116) H 07/25/19 06:37 Troponin I < 0.05 ng/mL (<0.06) 07/30/19 09:40 C-Reactive Protein 4.84 mg/dL (0.0-0.3) H 07/26/19 06:45 Total Protein 6.6 g/dL (6.4-8.2) 07/25/19 06:37 Albumin 2.2 g/dL (3.4-5.0) L 07/25/19 06:37 Tumor Marker AFP <2.5 ng/mL (<8.1) 07/27/19 06:35 Carcinoembryonic Ag 1.5 ng/ml (See Note) 07/26/19 06:45 Procalcitonin 0.5 ng/mL 07/30/19 09:40 TSH 0.28 uIU/mL (0.36-3.74) L 07/24/19 18:10 Free T4 1.20 ng/dL (0.76-1.46) 07/24/19 18:10 Urine Color Yellow (Yellow) 07/24/19 18:40 Urine Clarity Cloudy (Clear) 07/24/19 18:40 Urine pH 6.0 (5-8) 07/24/19 18:40 Ur Specific [place] 1.010 (1.005-1.025) 07/24/19 18:40 Urine Protein 30 mg/dL (Negative) H 07/24/19 18:40 Urine Ketones Negative mg/dL (Negative) 07/24/19 18:40 Urine Blood Moderate (Negative) H 07/24/19 18:40 Urine Nitrite Positive (Negative) H 07/24/19 18:40 Urine Bilirubin Negative (Negative) 07/24/19 18:40 Urine Urobilinogen 0.2 EU/dL (Up TO 0.2) 07/24/19 18:40 Ur Leukocyte Esterase Moderate (Negative) H 07/24/19 18:40 Urine RBC Not Applicable 07/24/19 18:40 Urine WBC >50 HPF (0-5) H 07/24/19 18:40 Ur Epithelial Cells Not Applicable 07/24/19 18:40 Urine Crystals Not Applicable 07/24/19 18:40 Urine Bacteria HPF (Negative) 07/24/19 18:40 Urine Mucus Not Applicable 07/24/19 18:40 Ur Culture Indicated? Yes 07/24/19 18:40 Urine Glucose >=1000 mg/dL (Negative) H 07/24/19 18:40 Vancomycin Trough 15.1 ug/mL (10.0-20.0) 07/29/19 13:20 COVID-19 PCR Negative (Negative) 07/24/19 21:45 Nasopharyn COVID-19 PCR Not Applicable 07/24/19 21:45 Ref Test Perform Site [facility] lab 07/24/19 21:45 Patient ABO/Rh AB Negative 07/25/19 10:55 Antibody Screen Negative 07/25/19 10:55
[2019-07-30] MEDS: Hydrocortisone SOD SUC. 100 MG VIAL IVP ×2 (10:53→18:45)
[2019-07-30] MEDS: POTASSIUM CHLORIDE 10 MEQ/100 ML BAG 100 MEQ IVPB (10:57)
[2019-07-30] MEDS: MAGNESIUM SULFATE 2 GM/50 ML BAG IVPB (10:57)
--- NOTE | 2019-07-30 11:01 | CHAPLAIN ---
Brendan was moved to the ICU this morning after vomiting. An NG tube was placed and a catheter was put in. Brendan's eyes were closed when I spoke to him but he nodded. He seemed to be comfortable and the nursing were getting him settled after the move and other care was given. Brendan is from the [facility], and expected to need a long course of IV antibiotics. He is well known to staff here due to his frequent hospitalizations.
[2019-07-30] MEDS: MEROPENEM 1 GM in Normal Saline 100 ML IVPB ×2 (11:02→22:33)
[2019-07-30] MEDS: Nystatin POWDER 15 GM JAR TP (11:07)
--- NOTE | 2019-07-30 11:09 | PGE_ITS ---
Date of Service Date of service: 07/30/19 Time of Service: 10:00 Assessment and Plan Assessment and plan (1) Ulcer of left lower leg: Status: Chronic (2) MRSA bacteremia: Status: Acute (3) Chronic iron deficiency anemia: Status: Acute (4) Open wound of left lower extremity without complication: Status: Acute (5) Protein-calorie malnutrition, mild: Status: Acute (6) Decubitus ulcer, stage 4 with infection: Status: Acute Assessment and plan: wound VAC four wks of abx- pressure relief mattress cont iron nutritional supplements tight control over blood sugars PT as tolerated 60 mins spent in critical care time Subjective Subjective Interval history since last seen: Pt developed n/v since midnight. XR appears to either mechanical SBO or physiologic ileus. Pt is very dehydrated and fluid resuscitation started. A ruiz was placed- urine appears purulent. Pt seemed to respond to fluids. Pt is somewhat resistant to cares- he refuses to switch sides and picks at his wound VAC. Exam Extrem Other: Wound location sacral/perirectal (what would be this area) Size: Width 9 cm Length 15 cm Depth 5 cm Undermining: yes Wound Base: granular:no Slough: 20% Surrounding Tissue: yeast the erthyma and swelling from the the original infection have gone down. This is replaced by changes assoc w/ chronic yeast/m aceration/weeping Pain:high Signs of infection: acute signs are resolving ueast Abx: meropenem Vascular status: N/A Protein status: albumin 2.2 Pressure offloading: wound vac. orders are to re-position every 2 hrs. pt is resfusing. attempting to get pressure releif mattress Smoker: no Diabetes: poorly controlled given that he lives in institutional care -pt also has a wound on the LLE- this is almost completely healed- 1x1cm -pt also has a wound on the 1st metatarsal of left foot 1x1cm. Objective Objective Clinical Data: Abnormal lab results 07/29/19 07/29/19 07/30/19 Range/Units 06:45 06:45 06:15 WBC (4.4-10.8) k/cumm RBC (4.50-6.00) m/cumm Hgb (13.5-17.5) g/dL Hct (40.0-50.0) % MCV (80-95) fL MCH (27.0-33.0) pg MCHC (32.0-36.0) g/dL RDW (11.8-14.1) % Absolute Neutrophils (1.2-6.7) k/cumm Absolute Monocytes (0.11-0.7) k/cumm ABG pH (7.35-7.45) ABG pCO2 (34-47) mmHg ABG pO2 (83-108) mmHg ABG O2 Saturation (94-98) % Sodium 135 L (136-145) mmol/L Potassium 3.2 L D (3.5-5.1) mmol/L Anion Gap 2.9 L (3-11) mmol/L BUN 55 H 59 H (7-18) mg/dL Creatinine 2.13 H 2.22 H (0.70-1.30) mg/dL Glucose 255 H 198 H (74-106) mg/dL Magnesium (1.8-2.4) mg/dL Iron 42 L (65-175) ug/dL TIBC 157 L (250-450) ug/dL Ferritin 660 H (26-388) ng/mL 07/30/19 07/30/19 07/30/19 Range/Units 06:15 08:30 09:40 WBC 25.04 H* D (4.4-10.8) k/cumm RBC 4.14 L (4.50-6.00) m/cumm Hgb 9.0 L (13.5-17.5) g/dL Hct 30.4 L (40.0-50.0) % MCV 73.4 L (80-95) fL MCH 21.7 L (27.0-33.0) pg MCHC 29.6 L (32.0-36.0) g/dL RDW 16.7 H (11.8-14.1) % Absolute Neutrophils 18.78 H (1.2-6.7) k/cumm Absolute Monocytes 1.50 H (0.11-0.7) k/cumm ABG pH 7.32 L (7.35-7.45) ABG pCO2 53 H (34-47) mmHg ABG pO2 117 H (83-108) mmHg ABG O2 Saturation 99 H (94-98) % Sodium (136-145) mmol/L Potassium 3.2 L (3.5-5.1) mmol/L Anion Gap (3-11) mmol/L BUN 58 H (7-18) mg/dL Creatinine 2.12 H (0.70-1.30) mg/dL Glucose 171 H (74-106) mg/dL Magnesium 1.6 L (1.8-2.4) mg/dL Iron (65-175) ug/dL TIBC (250-450) ug/dL Ferritin (26-388) ng/mL Vital Signs Temperature 36 C L 07/30/19 09:04 Temperature Source Tympanic 07/30/19 09:04 Pulse 63 07/30/19 09:04 Pulse Rhythm Regular 07/30/19 07:30 Pulse 69 07/24/19 21:40 Respiratory Rate 20 07/30/19 09:04 Respiratory Effort 07/30/19 07:30 Respiratory Depth Shallow 07/30/19 07:30 Respiratory Pattern Tachypnea 07/30/19 07:30 Blood Pressure 128/55 L 07/30/19 09:04 Blood Pressure Mean 77 07/24/19 21:31 Blood Pressure Position Supine 07/24/19 17:19 Pulse Oximetry 99 07/30/19 09:04 Oxygen Delivery Method Nasal Cannula 07/30/19 09:04 Oxygen Flow Rate 1 07/30/19 10:30 Pain Level 8 07/30/19 09:50 Comment 07/29/19 08:04 Intake & Output 07/29/19 07/29/19 07/30/19 11:59 23:59 11:59 Intake Total 980 / 3010 2030 / 3010 Output Total 1700 / 3750 2050 / 3750 1200 / 1200 Balance -720 / -740 -20 / -740 -1200 / -1200 Weight 100.1 kg 98.6 kg Intake: IV 300 / 1780 1480 / 1780 Oral 680 / 1230 550 / 1230 Output: Urine 1350 / 3200 1850 / 3200 500 / 500 Stool 350 / 450 100 / 450 200 / 200 Emesis 100 / 100 500 / 500 Other: Urine Color Pale Yellow Pale Yellow Urine Appearance Cloudy Clear Purulent Urine Odor None Normal Normal Comment Glydo was instilled prior to insertion at patient request. Insertion was performed using sterile technique. Patient was cleansed and prepped, after glydo was given time to take effect. Insertion was made with no discomfort to the patient noted. There was a small return of clear yellow urine, then a stream of puss was noted in the tube. Per provider order , a sample was sent to the lab. Patent refused to have a leg strap applied, collection bag was hanging on the right side of the bed Stool Occult Blood Negative Negative Stool Size Moderate Stool Characteristics Soft Emesis Description Retching Undigested Food Gastric Occult Blood Negative Voiding Methods Urinal Urinal Urinal Laboratory Results WBC 25.04 k/cumm (4.4-10.8) H* D 07/30/19 06:15 RBC 4.14 m/cumm (4.50-6.00) L 07/30/19 06:15 Hgb 9.0 g/dL (13.5-17.5) L 07/30/19 06:15 Hct 30.4 % (40.0-50.0) L 07/30/19 06:15 MCV 73.4 fL (80-95) L 07/30/19 06:15 MCH 21.7 pg (27.0-33.0) L 07/30/19 06:15 MCHC 29.6 g/dL (32.0-36.0) L 07/30/19 06:15 RDW 16.7 % (11.8-14.1) H 07/30/19 06:15 Plt Count 355 x1000/uL (130-400) 07/30/19 06:15 MPV 9.9 fL (8.0-11.0) 07/30/19 06:15 Immature Gran % 0.0 % 07/30/19 06:15 Neutrophils % 73.0 07/30/19 06:15 Band Neutrophils % 2.0 % 07/30/19 06:15 Lymphocytes % 10.0 07/30/19 06:15 Monocytes % 6.0 07/30/19 06:15 Eosinophils % 2.0 07/30/19 06:15 Basophils % 0.0 07/30/19 06:15 Metamyelocytes % 2.0 % 07/30/19 06:15 Myelocytes % 2.0 % 07/30/19 06:15 Absolute Neutrophils 18.78 k/cumm (1.2-6.7) H 07/30/19 06:15 Absolute Lymphocytes 2.50 k/cumm (1.2-3.4) 07/30/19 06:15 Absolute Monocytes 1.50 k/cumm (0.11-0.7) H 07/30/19 06:15 Absolute Eosinophils 0.50 k/cumm (0.0-0.7) 07/30/19 06:15 Absolute Basophils 0.00 k/cumm (0.0-0.2) 07/30/19 06:15 Nucleated RBCs 2 /100WBC 07/30/19 06:15 Differential Comment Manual differential 07/30/19 06:15 RBC Morphology See below 07/30/19 06:15 Polychromasia Present 07/29/19 06:45 Hypochromasia 2+ 07/30/19 06:15 Poikilocytosis 2+ 07/30/19 06:15 Basophilic Stippling Present 07/29/19 06:45 Anisocytosis 2+ 07/29/19 06:45 Microcytosis 2+ 07/30/19 06:15 Ovalocytes 2+ 07/29/19 06:45 ESR 55 mm/hr (1-20) H 07/24/19 18:10 PT 10.8 sec (9.3-11.0) 07/24/19 18:10 INR 1.1 (0.9-1.1) 07/24/19 18:10 APTT 26.4 sec (21.0-31.4) 07/24/19 18:10 ABG Sample Site Left radial 07/30/19 08:30 ABG pH 7.32 (7.35-7.45) L 07/30/19 08:30 ABG pCO2 53 mmHg (34-47) H 07/30/19 08:30 ABG pO2 117 mmHg (83-108) H 07/30/19 08:30 ABG HCO3 27 mmol/L (22-28) 07/30/19 08:30 ABG Total CO2 26 mmol/L (22-29) 07/30/19 08:30 ABG O2 Saturation 99 % (94-98) H 07/30/19 08:30 ABG Base Excess 0.7 mmol/L (-3-3) 07/30/19 08:30 Oxygen Liter Flow 2 L 07/30/19 08:30 Sodium 137 mmol/L (136-145) 07/30/19 09:40 Potassium 3.2 mmol/L (3.5-5.1) L 07/30/19 09:40 Chloride 105 mmol/L (98-107) 07/30/19 09:40 Carbon Dioxide 28.1 mmol/L (21.0-32.0) 07/30/19 09:40 Anion Gap 3.9 mmol/L (3-11) 07/30/19 09:40 BUN 58 mg/dL (7-18) H 07/30/19 09:40 Creatinine 2.12 mg/dL (0.70-1.30) H 07/30/19 09:40 Estimated GFR/1.73 m2 32.02 (mL/min/1.73m2) 07/30/19 09:40 Glucose 171 mg/dL (74-106) H 07/30/19 09:40 Lactate 1.3 mmol/L (0.6-1.4) 07/30/19 09:40 Calcium 8.8 mg/dL (8.5-10.1) 07/30/19 09:40 Magnesium 1.6 mg/dL (1.8-2.4) L 07/30/19 09:40 Iron 42 ug/dL (65-175) L 07/29/19 06:45 TIBC 157 ug/dL (250-450) L 07/29/19 06:45 Transferrin % Sat 27 % (20-55) 07/29/19 06:45 Ferritin 660 ng/mL (26-388) H 07/29/19 06:45 Total Bilirubin 0.3 mg/dL (0.2-1.0) 07/25/19 06:37 AST 8 U/L (15-37) L 07/25/19 06:37 ALT 13 U/L (16-63) L 07/25/19 06:37 Alkaline Phosphatase 117 U/L (46-116) H 07/25/19 06:37 Troponin I < 0.05 ng/mL (<0.06) 07/30/19 09:40 C-Reactive Protein 4.84 mg/dL (0.0-0.3) H 07/26/19 06:45 Total Protein 6.6 g/dL (6.4-8.2) 07/25/19 06:37 Albumin 2.2 g/dL (3.4-5.0) L 07/25/19 06:37 Tumor Marker AFP <2.5 ng/mL (<8.1) 07/27/19 06:35 Carcinoembryonic Ag 1.5 ng/ml (See Note) 07/26/19 06:45 Procalcitonin 0.5 ng/mL 07/30/19 09:40 TSH 0.28 uIU/mL (0.36-3.74) L 07/24/19 18:10 Free T4 1.20 ng/dL (0.76-1.46) 07/24/19 18:10 Urine Color Yellow (Yellow) 07/24/19 18:40 Urine Clarity Cloudy (Clear) 07/24/19 18:40 Urine pH 6.0 (5-8) 07/24/19 18:40 Ur Specific [place] 1.010 (1.005-1.025) 07/24/19 18:40 Urine Protein 30 mg/dL (Negative) H 07/24/19 18:40 Urine Ketones Negative mg/dL (Negative) 07/24/19 18:40 Urine Blood Moderate (Negative) H 07/24/19 18:40 Urine Nitrite Positive (Negative) H 07/24/19 18:40 Urine Bilirubin Negative (Negative) 07/24/19 18:40 Urine Urobilinogen 0.2 EU/dL (Up TO 0.2) 07/24/19 18:40 Ur Leukocyte Esterase Moderate (Negative) H 07/24/19 18:40 Urine RBC Not Applicable 07/24/19 18:40 Urine WBC >50 HPF (0-5) H 07/24/19 18:40 Ur Epithelial Cells Not Applicable 07/24/19 18:40 Urine Crystals Not Applicable 07/24/19 18:40 Urine Bacteria HPF (Negative) 07/24/19 18:40 Urine Mucus Not Applicable 07/24/19 18:40 Ur Culture Indicated? Yes 07/24/19 18:40 Urine Glucose >=1000 mg/dL (Negative) H 07/24/19 18:40 Vancomycin Trough 15.1 ug/mL (10.0-20.0) 07/29/19 13:20 COVID-19 PCR Negative (Negative) 07/24/19 21:45 Nasopharyn COVID-19 PCR Not Applicable 07/24/19 21:45 Ref Test Perform Site [facility] lab 07/24/19 21:45 Patient ABO/Rh AB Negative 07/25/19 10:55 Antibody Screen Negative 07/25/19 10:55
--- NOTE | 2019-07-30 11:17 | DI.RAD_ITS ---
EXAM: XR LINE PLACEMENT PICC/CVA CLINICAL HISTORY: NG tube placement confirmation TECHNIQUE: COMPARISON: CR XR PORTABLE CHEST AP from 07/30/2019 FINDINGS: Portable upright chest at 1105 hours. Left PICC line placement noted with tip of the line in the SVC . NG tube also noted in good position. Mild cardiomegaly noted. Lungs are clear. IMPRESSION:
[2019-07-30 11:59] LABS: c-ANCA Negative (Negative); p-ANCA Negative (Negative)
[2019-07-30] MEDS: Metoprolol 5 MG/5 ML VIAL IVP ×2 (12:32→18:37)
[2019-07-30 12:45] LABS: Lactate 0.9 mmol/L (0.6-1.4)
[2019-07-30] MEDS: Normal Saline 1,000 ML 100 ML IV ×2 (12:45→18:56)
[2019-07-30] MEDS: Insulin Aspart 300 UNITS/3 ML PEN SC ×3 (13:35→22:47)
--- NOTE | 2019-07-30 14:01 | NUR.NOTE ---
Spoke with Maria C Ba RN, Roland Sung RN, and Racquel Torres Chaser Apprentice regarding the ordering of the low pressure mattress for Brendan. Racquel will be calling this afternoon (07/29) to find out if we can get the bed and when. Nursing Note:
[2019-07-30 14:24] LABS: White Blood Cell Count 25.04 k/cumm (4.4-10.8)
[2019-07-30] MEDS: ACETAMINOPHEN 1,000 MG/100 ML BTL 400 MG IVPB ×2 (14:26→22:32)
[2019-07-30 15:56] LABS: Lactate 0.7 mmol/L (0.6-1.4)
--- NOTE | 2019-07-30 18:33 | NUR.NOTE ---
Nursing Note: 1645 Telephone Interviewer from [facility] arrived with a [employer] C200 bed with pressure-relieving mattress. Patient transferred from ICU bed to [facility] bed with hover mat and 3 assist. Pt placed directly on the special absorbent mattress cover with no linens other than a disposable pad under carson area per instructions from [facility] rep
--- NOTE | 2019-07-30 19:05 | NUR.NOTE ---
Nursing Note: 1330 Pt demanding that he wants the NG tube removed. Pt not receptive to nurse explanation about why the NG tube could be helpful. Nurse asked the patient, Is it worth having the tube in if it helps you live longer? Pt replied, I'm not going to live very long anyway! I want it out! Dr. Gan notified of patient request and came in to see patient. Pt unable to engage at this time in a conversation about goals of care beyond, I don't care about all that! I want the tube out! NG tube discontinued per MD order and patient request.
[2019-07-30] MEDS: Water,Injection,Sterile 10 ML VIAL (20:29)
[2019-07-30] MEDS: Alteplase 2 MG VIAL IJ (20:31)
[2019-07-30] MEDS: Levothyroxine 25 MCG TAB 12.5 MCG PO (22:33)
[2019-07-30] MEDS: Insulin Glargine 300 UNITS/3 ML PEN 30 UNITS SC (22:46)
[2019-07-31] VITALS (48 sets, daily range): BP systolic 135–175; BP diastolic 56–97; PULSE 51–90; RESP 11–20; TEMP 36–36.9; O2SAT 88–100
[2019-07-31] MEDS: Hydrocortisone SOD SUC. 100 MG VIAL IVP ×2 (01:11→10:23)
[2019-07-31] MEDS: Metoprolol 5 MG/5 ML VIAL IVP ×5 (01:12→23:57)
[2019-07-31] MEDS: VANCOMYCIN 1,000 MG in Normal Saline 250 ML 167 MG IV ×2 (01:12→19:38)
[2019-07-31] MEDS: Normal Saline Flush 10 ML SYR IVP ×4 (06:23→22:03)
[2019-07-31] MEDS: ACETAMINOPHEN 1,000 MG/100 ML BTL 400 MG IVPB ×3 (06:29→21:59)
[2019-07-31] MEDS: Insulin Aspart 300 UNITS/3 ML PEN SC ×2 (06:35→11:47)
[2019-07-31] MEDS: Insulin NPH-Human 300 UNITS/3 ML PEN SC ×2 (06:35→18:49)
[2019-07-31 06:43] LABS: HCT 29.7 % (40.0-50.0); HGB 8.7 g/dL (13.5-17.5); Mean Corp. HGB Concentration 29.3 g/dL (32.0-36.0); Mean Corpuscular Hemoglobin 21.9 pg (27.0-33.0); Mean Corpuscular Volume 74.6 fL (80-95); Mean Platelet Volume 9.6 fL (8.0-11.0); Platelet Count 322 x1000/uL (130-400); RBC 3.98 m/cumm (4.50-6.00); RBC Distribution Width 17.2 % (11.8-14.1); White Blood Cell Count 22.02 k/cumm (4.4-10.8)
[2019-07-31 06:52] LABS: Anion Gap 5.6 mmol/L (3-11); BUN 47 mg/dL (7-18); CO2 29.4 mmol/L (21.0-32.0); CREATININE 1.65 mg/dL (0.70-1.30); Calcium 8.3 mg/dL (8.5-10.1); Chloride 106 mmol/L (98-107); Estimated GFR 42.77 (mL/min/1.73m2); Glucose 185 mg/dL (74-106); Potassium 3.6 mmol/L (3.5-5.1); Sodium 141 mmol/L (136-145)
[2019-07-31] MEDS: FLUCONAZOLE 200 MG/100 ML BAG 100 MG IVPB (07:57)
[2019-07-31] MEDS: Pantoprazole 40 MG VIAL IVP (07:57)
[2019-07-31] MEDS: Normal Saline 1,000 ML 100 ML IV (07:59)
--- NOTE | 2019-07-31 08:14 | PDOC.CMPRO ---
- If Service Date Differs Date of service: 07/31/19 Time of Service: 08:14 Care Management Progress Note S/O: Brendan remains ICU level of care. He was sitting up in bed when CM met with him. Brendan stated that his belly hurt which he attributed to having eaten too much. He had been on a full liquid diet but was changed back to a clear liquid diet after experiencing discomfort. Brendan shared that he had spoken with his sister Lian last night and despite the discomfort was smiling and pleasant. A: Brendan is a 59 year old man admitted from the [facility] on 07/24/19 with UTI and a sacral ulcer P: Brendan will need custodial IV antibiotic therapy to treat the infected decubitus ulcer he presented with. Since the [facility] is unable to provide this service, he will likely need to transition to SB-1 status at some point. Ultimately, Brendan will return to the [facility] when treatment is complete. CM will continue to support Brendan and his discharge planning concerns and will update his sister as needed.
--- NOTE | 2019-07-31 10:19 | W.PM.PROGNOT ---
Date of Service Date of service: 07/31/19 Time of Service: 10:20 Assessment and Plan Assessment and plan (1) MRSA bacteremia: Status: Acute Assessment and plan: On blood cultures 07/24/2019, cleared on blood cultures on 07/27/2019. Given MRSA in surgical wound, this is the likely source. Continue vancomycin x 4 weeks since negative blood cultures. Expected end date is 08/23/2019. Need an echo. (2) Decubitus ulcer, stage 4 with infection: Status: Acute Assessment and plan: s/p surgical debridement on and 07/26/2019. Continue wound vac. Surgical cx with MRSA. Continue vancomycin. Continue MVI, vitamin C, zinc supplementation per nutrition. Offload/mobilize as able. (3) ESBL (extended spectrum beta-lactamase) producing bacteria infection: Status: Acute Assessment and plan: UTI Due to ESBL E. Coli, present on admission, now s/p ruiz. Should be sensitive to meropenem. Continue for now. For CT abdomen/pelvis today. (4) Vomiting: Status: Acute Assessment and plan: ?due to sepsis, abx, or issues to with ostomy. Also possible that this is due to poor absorption of PO steroids and development of a Crohn's flare or simply adrenal insufficiency. For CT abdomen/pelvis. (5) Adrenal insufficiency: Status: Chronic Assessment and plan: Decrease solucortef to 50 mg IV Q 6 hrs. (6) Acute kidney injury superimposed on chronic kidney disease: Status: Acute Assessment and plan: Improved post insertion of ruiz catheter. ?urinary retention prior. For imaging today. (7) Hyperkalemia: Status: Resolved Assessment and plan: Resolved with treatment of JESUS and adrenal crisis. (8) CAD (coronary artery disease): Status: Chronic Assessment and plan: No concern for ACS on this admission. Follow up as outpatient. (9) Atrial flutter, paroxysmal: Status: Chronic Assessment and plan: In NSR at this time. Continue to monitor on a secured entrance monitor. (10) Diabetes mellitus: Status: Chronic Assessment and plan: Monitor BG's as hydrocortisone is being decreased. Qualifiers: Diabetes mellitus complication detail: with polyneuropathy Diabetes mellitus complication status: with neurologic complications Diabetes mellitus care home insulin use: with care home use Diabetes mellitus type: type 2 Qualified Code(s): E11.42 - Type 2 diabetes mellitus with diabetic polyneuropathy; Z79.4 - custodial (current) use of insulin (11) History of DVT (deep vein thrombosis): Status: Acute Assessment and plan: S/p IVC filter. Anticoagulation on hold due to bleeding decubitus wound. (12) Bradycardia: Status: Chronic Assessment and plan: Monitor on secured entrance monitor. (13) CHF (congestive heart failure): Status: Chronic Assessment and plan: Near euvolemic at this time. Continue to monitor I/O's, daily weights. (14) Hypoventilation associated with obesity syndrome: Status: Chronic Assessment and plan: Did not wear Trilogy yesterday due to concerns for vomiting. Patient promises to trial again tonight. (15) Hypertension: Status: Chronic Assessment and plan: Continue to hold amlodipine, clonidine and furosemide. Continue IV Metoprolol with holding parameters. Qualifiers: Hypertension type: essential hypertension Qualified Code(s): I10 - Essential (primary) hypertension (16) Ulcer of left lower leg: Status: Chronic Assessment and plan: Continue wound care with Mepilex. (17) DVT prophylaxis: Status: Acute Assessment and plan: S/p IVC filter. Chemical treatment/ppx is contraindicated due to the bleeding decubitous wound. (18) Discharge planning issues: Status: Acute Assessment and plan: Full code. Continues to require hospitalization. Keep in ICU. Subjective Subjective Interval history since last seen: Brendan states he is feeling a lot better. No longer nauseated. Tolerating clears. Denies dizziness, chest pain, shortness of breath. Reports slight RLQ pain around ostomy - states this started yesterday or the day before, does not give a clear timeline. Afebrile overnight. Did not wear Trilogy for the fear of vomiting into it. States he will wear it tonight. Exam Narrative Exam Narrative: General: Pleasant obese male, laying comfortably in bed, A&Ox3, no evidence of dyspnea/tachypnea, appears to be at his baseline from mental status stand point HEENT: EOMI, MMM Heart: RRR, no m/r/g Lungs: CTAB anteriorly Abdomen: soft, minimally tender around ostomy - liquid green output, slight protrusion of intestine into ostomy, but pink and does not appear obstructed, + bowel sounds Extremities: +1 BLE edema, B chronic venous stasis changes; LLE tibial surface dressed - c/d/i Objective Objective Clinical Data: Abnormal lab results 07/30/19 07/31/19 07/31/19 Range/Units 06:15 06:35 06:35 WBC 25.04 H* D 22.02 H (4.4-10.8) k/cumm RBC 3.98 L (4.50-6.00) m/cumm Hgb 8.7 L (13.5-17.5) g/dL Hct 29.7 L (40.0-50.0) % MCV 74.6 L (80-95) fL MCH 21.9 L (27.0-33.0) pg MCHC 29.3 L (32.0-36.0) g/dL RDW 17.2 H (11.8-14.1) % BUN 47 H D (7-18) mg/dL Creatinine 1.65 H (0.70-1.30) mg/dL Glucose 185 H (74-106) mg/dL Calcium 8.3 L (8.5-10.1) mg/dL Vital Signs Temperature 36.0 C L 07/31/19 07:47 Temperature Source Temporal Artery Scan 07/31/19 07:47 Pulse 74 07/31/19 10:01 Pulse Rhythm Regular 07/30/19 07:30 Pulse 80 07/31/19 10:01 Respiratory Rate 13 07/31/19 10:01 Respiratory Effort Non-Labored 07/31/19 07:47 Respiratory Depth Normal 07/31/19 07:47 Respiratory Pattern Normal 07/31/19 07:47 Blood Pressure 153/63 H 07/31/19 10:01 Blood Pressure Mean 81 07/31/19 10:01 Blood Pressure Position Supine 07/31/19 07:47 Pulse Oximetry 93 L 07/31/19 10:01 Oxygen Delivery Method Nasal Cannula 07/31/19 07:47 Oxygen Flow Rate 0.5 07/31/19 07:47 Pain Level 5 07/31/19 07:47 Comment 07/29/19 08:04 Intake & Output 07/30/19 07/30/19 07/31/19 11:59 23:59 11:59 Intake Total 1290 / 3398.333 2108.333 / 3398.333 1900 / 1900 Output Total 1900 / 3095 1195 / 3095 1575 / 1575 Balance -610 / 303.333 913.333 / 303.333 325 / 325 Weight 98.6 kg Intake: IV 1290 / 2828.333 1538.333 / 2828.333 1450 / 1450 Oral 570 / 570 450 / 450 Output: Gastric Drainage 100 / 220 120 / 220 Right Nare 100 / 220 120 / 220 Urine 1025 / 2100 1075 / 2100 1575 / 1575 Stool 275 / 275 Emesis 500 / 500 Other: Urine Color Pale Pale Yellow Urine Appearance Cloudy Clear Clear Sediment Urine Odor Normal Comment Ruiz in place draining cloudy very pale urine. ruiz catheter draining pale yellow urine Ruiz intact and draining clear yellow urine. Stool Occult Blood Negative Stool Size Moderate Stool Characteristics Soft Emesis Description None None Gastric Occult Blood Negative Right Nare Negative Voiding Methods Urinal Laboratory Results WBC 22.02 k/cumm (4.4-10.8) H 07/31/19 06:35 RBC 3.98 m/cumm (4.50-6.00) L 07/31/19 06:35 Hgb 8.7 g/dL (13.5-17.5) L 07/31/19 06:35 Hct 29.7 % (40.0-50.0) L 07/31/19 06:35 MCV 74.6 fL (80-95) L 07/31/19 06:35 MCH 21.9 pg (27.0-33.0) L 07/31/19 06:35 MCHC 29.3 g/dL (32.0-36.0) L 07/31/19 06:35 RDW 17.2 % (11.8-14.1) H 07/31/19 06:35 Plt Count 322 x1000/uL (130-400) 07/31/19 06:35 MPV 9.6 fL (8.0-11.0) 07/31/19 06:35 Immature Gran % 0.0 % 07/30/19 06:15 Neutrophils % 73.0 07/30/19 06:15 Band Neutrophils % 2.0 % 07/30/19 06:15 Lymphocytes % 10.0 07/30/19 06:15 Monocytes % 6.0 07/30/19 06:15 Eosinophils % 2.0 07/30/19 06:15 Basophils % 0.0 07/30/19 06:15 Metamyelocytes % 2.0 % 07/30/19 06:15 Myelocytes % 2.0 % 07/30/19 06:15 Absolute Neutrophils 18.78 k/cumm (1.2-6.7) H 07/30/19 06:15 Absolute Lymphocytes 2.50 k/cumm (1.2-3.4) 07/30/19 06:15 Absolute Monocytes 1.50 k/cumm (0.11-0.7) H 07/30/19 06:15 Absolute Eosinophils 0.50 k/cumm (0.0-0.7) 07/30/19 06:15 Absolute Basophils 0.00 k/cumm (0.0-0.2) 07/30/19 06:15 Nucleated RBCs 2 /100WBC 07/30/19 06:15 Differential Comment Manual differential 07/30/19 06:15 RBC Morphology See below 07/30/19 06:15 Polychromasia Present 07/29/19 06:45 Hypochromasia 2+ 07/30/19 06:15 Poikilocytosis 2+ 07/30/19 06:15 Basophilic Stippling Present 07/29/19 06:45 Anisocytosis 2+ 07/29/19 06:45 Microcytosis 2+ 07/30/19 06:15 Ovalocytes 2+ 07/29/19 06:45 ESR 55 mm/hr (1-20) H 07/24/19 18:10 PT 10.8 sec (9.3-11.0) 07/24/19 18:10 INR 1.1 (0.9-1.1) 07/24/19 18:10 APTT 26.4 sec (21.0-31.4) 07/24/19 18:10 ABG Sample Site Left radial 07/30/19 08:30 ABG pH 7.32 (7.35-7.45) L 07/30/19 08:30 ABG pCO2 53 mmHg (34-47) H 07/30/19 08:30 ABG pO2 117 mmHg (83-108) H 07/30/19 08:30 ABG HCO3 27 mmol/L (22-28) 07/30/19 08:30 ABG Total CO2 26 mmol/L (22-29) 07/30/19 08:30 ABG O2 Saturation 99 % (94-98) H 07/30/19 08:30 ABG Base Excess 0.7 mmol/L (-3-3) 07/30/19 08:30 Oxygen Liter Flow 2 L 07/30/19 08:30 Sodium 141 mmol/L (136-145) 07/31/19 06:35 Potassium 3.6 mmol/L (3.5-5.1) 07/31/19 06:35 Chloride 106 mmol/L (98-107) 07/31/19 06:35 Carbon Dioxide 29.4 mmol/L (21.0-32.0) 07/31/19 06:35 Anion Gap 5.6 mmol/L (3-11) 07/31/19 06:35 BUN 47 mg/dL (7-18) H D 07/31/19 06:35 Creatinine 1.65 mg/dL (0.70-1.30) H 07/31/19 06:35 Estimated GFR/1.73 m2 42.77 (mL/min/1.73m2) 07/31/19 06:35 Glucose 185 mg/dL (74-106) H 07/31/19 06:35 Lactate 0.7 mmol/L (0.6-1.4) 07/30/19 15:40 Calcium 8.3 mg/dL (8.5-10.1) L 07/31/19 06:35 Magnesium 2.0 mg/dL (1.8-2.4) 07/31/19 06:35 Iron 42 ug/dL (65-175) L 07/29/19 06:45 TIBC 157 ug/dL (250-450) L 07/29/19 06:45 Transferrin % Sat 27 % (20-55) 07/29/19 06:45 Ferritin 660 ng/mL (26-388) H 07/29/19 06:45 Total Bilirubin 0.3 mg/dL (0.2-1.0) 07/25/19 06:37 AST 8 U/L (15-37) L 07/25/19 06:37 ALT 13 U/L (16-63) L 07/25/19 06:37 Alkaline Phosphatase 117 U/L (46-116) H 07/25/19 06:37 Troponin I < 0.05 ng/mL (<0.06) 07/30/19 09:40 C-Reactive Protein 4.84 mg/dL (0.0-0.3) H 07/26/19 06:45 Total Protein 6.6 g/dL (6.4-8.2) 07/25/19 06:37 Albumin 2.2 g/dL (3.4-5.0) L 07/25/19 06:37 Tumor Marker AFP <2.5 ng/mL (<8.1) 07/27/19 06:35 Carcinoembryonic Ag 1.5 ng/ml (See Note) 07/26/19 06:45 Procalcitonin 0.5 ng/mL 07/30/19 09:40 TSH 0.28 uIU/mL (0.36-3.74) L 07/24/19 18:10 Free T4 1.20 ng/dL (0.76-1.46) 07/24/19 18:10 Urine Color Yellow (Yellow) 07/24/19 18:40 Urine Clarity Cloudy (Clear) 07/24/19 18:40 Urine pH 6.0 (5-8) 07/24/19 18:40 Ur Specific [place] 1.010 (1.005-1.025) 07/24/19 18:40 Urine Protein 30 mg/dL (Negative) H 07/24/19 18:40 Urine Ketones Negative mg/dL (Negative) 07/24/19 18:40 Urine Blood Moderate (Negative) H 07/24/19 18:40 Urine Nitrite Positive (Negative) H 07/24/19 18:40 Urine Bilirubin Negative (Negative) 07/24/19 18:40 Urine Urobilinogen 0.2 EU/dL (Up TO 0.2) 07/24/19 18:40 Ur Leukocyte Esterase Moderate (Negative) H 07/24/19 18:40 Urine RBC Not Applicable 07/24/19 18:40 Urine WBC >50 HPF (0-5) H 07/24/19 18:40 Ur Epithelial Cells Not Applicable 07/24/19 18:40 Urine Crystals Not Applicable 07/24/19 18:40 Urine Bacteria HPF (Negative) 07/24/19 18:40 Urine Mucus Not Applicable 07/24/19 18:40 Ur Culture Indicated? Yes 07/24/19 18:40 Urine Glucose >=1000 mg/dL (Negative) H 07/24/19 18:40 Vancomycin Trough 15.1 ug/mL (10.0-20.0) 07/29/19 13:20 c-ANCA Negative (Negative) 07/27/19 06:35 p-ANCA Negative (Negative) 07/27/19 06:35 COVID-19 PCR Negative (Negative) 07/24/19 21:45 Nasopharyn COVID-19 PCR Not Applicable 07/24/19 21:45 Ref Test Perform Site [facility] lab 07/24/19 21:45 Patient ABO/Rh AB Negative 07/25/19 10:55 Antibody Screen Negative 07/25/19 10:55
[2019-07-31] MEDS: MEROPENEM 1 GM in Normal Saline 100 ML IVPB ×2 (10:22→21:53)
[2019-07-31] MEDS: Ondansetron 4 MG/2 ML VIAL IVP ×2 (11:31→14:15)
--- NOTE | 2019-07-31 12:12 | PGE_ITS ---
Date of Service Date of service: 07/31/19 Time of Service: 09:30 Assessment and Plan Assessment and plan (1) Ulcer of left lower leg: Status: Chronic Assessment and plan: Continue with dressing changes Qualifiers: Non-pressure ulcer stage: limited to breakdown of skin Qualified Code(s): L97.921 - Non-pressure chronic ulcer of unspecified part of left lower leg limited to breakdown of skin (2) MRSA bacteremia: Status: Acute Assessment and plan: Treat per Hospitalist Awaiting Tissue bx results (3) Chronic iron deficiency anemia: Status: Acute (4) Protein-calorie malnutrition, mild: Status: Acute Assessment and plan: Still on clears as he still is having Nausea. (5) Decubitus ulcer, stage 4 with infection: Status: Acute Assessment and plan: wound VAC four wks of abx- pressure relief mattress cont iron nutritional supplements tight control over blood sugars PT as tolerated (6) Diabetic foot ulcer: Status: Chronic Qualifiers: Diabetic foot ulcer location: toe Diabetes mellitus type: type 2 Laterality: left Non-pressure ulcer stage: with fat layer exposed Qualified Code(s): E11.621 - Type 2 diabetes mellitus with foot ulcer; L97.522 - Non- pressure chronic ulcer of other part of left foot with fat layer exposed (7) Ileus: Status: Acute Assessment and plan: A\\ ABDO Xray showed some air fluid levels. Not a great study. Obstruction vs ileus P\\ CT scan with oral contrast for more information regarding obstruction vs ileus NPO until CT scan has been done Subjective Subjective Interval history since last seen: Mr. Corley is doing OK this am. He has continued to have intermittent Nausea. he is tolerating clear liquids and there is air and some stool in his ostomy bag. He complains of some abdominal pain around his ostomy. Exam Const General: cooperative, comfortable and no acute distress Orientation: alert and oriented x3 HENMT Head: normocephalic and atraumatic Resp Effort & Inspection: normal respiratory effort Auscultation: clear to auscultation bilaterally and diminished lung sounds bilaterally in the lower lung barnard Cardio Rate: regular rate Rhythm: regular rhythm GI Palpation: soft, no hepatosplenomegaly and nontender Auscultation: hypoactive bowel sounds Other: Ileostomy is pink and protruding a little. Digital exam - no blockage flet to just past the fascia. Abdomen image: 1. ileostomy Skin Other: LLE- small skin abrasion on medial aspect just above the ankle Open wound lateral aspect along tibia- there is granulation tissue to the dermis. Needs to epithelialize. Left foot- plantar ulcer measuring 0.5 cm about 2 mm deep. No erythema or fluctuance Sacrum- wound is not checked as the wound vac was just changed yesterday Full body images: 1. LLE extremity- wound from a hematoma. Healing 2. LLE- small skin abrasion 3. saccral decubitus ulcer Objective Objective Clinical Data: Abnormal lab results 07/30/19 07/31/19 07/31/19 Range/Units 06:15 06:35 06:35 WBC 25.04 H* D 22.02 H (4.4-10.8) k/cumm RBC 3.98 L (4.50-6.00) m/cumm Hgb 8.7 L (13.5-17.5) g/dL Hct 29.7 L (40.0-50.0) % MCV 74.6 L (80-95) fL MCH 21.9 L (27.0-33.0) pg MCHC 29.3 L (32.0-36.0) g/dL RDW 17.2 H (11.8-14.1) % BUN 47 H D (7-18) mg/dL Creatinine 1.65 H (0.70-1.30) mg/dL Glucose 185 H (74-106) mg/dL Calcium 8.3 L (8.5-10.1) mg/dL Vital Signs Temperature 96.8 F L 07/31/19 07:47 Temperature Source Temporal Artery Scan 07/31/19 07:47 Pulse 73 07/31/19 11:01 Pulse Rhythm Regular 07/30/19 07:30 Pulse 72 07/31/19 11:01 Respiratory Rate 14 07/31/19 11:01 Respiratory Effort Non-Labored 07/31/19 07:47 Respiratory Depth Normal 07/31/19 07:47 Respiratory Pattern Normal 07/31/19 07:47 Blood Pressure 156/74 H 07/31/19 11:01 Blood Pressure Mean 92 07/31/19 11:01 Blood Pressure Position Supine 07/31/19 07:47 Pulse Oximetry 88 L 07/31/19 11:50 Oxygen Delivery Method Room Air 07/31/19 11:50 Oxygen Flow Rate 0 07/31/19 11:50 Pain Level 5 07/31/19 07:47 Comment 07/29/19 08:04 Intake & Output 07/30/19 07/31/19 07/31/19 23:59 11:59 23:59 Intake Total 2108.333 / 3398.333 1900 / 1900 Output Total 1195 / 3095 1650 / 1650 Balance 913.333 / 303.333 250 / 250 Intake: IV 1538.333 / 2828.333 1450 / 1450 Oral 570 / 570 450 / 450 Output: Gastric Drainage 120 / 220 Right Nare 120 / 220 Urine 1075 / 2100 1575 / 1575 Stool 75 / 75 Other: Urine Color Pale Yellow Urine Appearance Clear Clear Sediment Comment ruiz catheter draining pale yellow urine Ruiz intact and draining clear yellow urine. Emesis Description None Laboratory Results WBC 22.02 k/cumm (4.4-10.8) H 07/31/19 06:35 RBC 3.98 m/cumm (4.50-6.00) L 07/31/19 06:35 Hgb 8.7 g/dL (13.5-17.5) L 07/31/19 06:35 Hct 29.7 % (40.0-50.0) L 07/31/19 06:35 MCV 74.6 fL (80-95) L 07/31/19 06:35 MCH 21.9 pg (27.0-33.0) L 07/31/19 06:35 MCHC 29.3 g/dL (32.0-36.0) L 07/31/19 06:35 RDW 17.2 % (11.8-14.1) H 07/31/19 06:35 Plt Count 322 x1000/uL (130-400) 07/31/19 06:35 MPV 9.6 fL (8.0-11.0) 07/31/19 06:35 Immature Gran % 0.0 % 07/30/19 06:15 Neutrophils % 73.0 07/30/19 06:15 Band Neutrophils % 2.0 % 07/30/19 06:15 Lymphocytes % 10.0 07/30/19 06:15 Monocytes % 6.0 07/30/19 06:15 Eosinophils % 2.0 07/30/19 06:15 Basophils % 0.0 07/30/19 06:15 Metamyelocytes % 2.0 % 07/30/19 06:15 Myelocytes % 2.0 % 07/30/19 06:15 Absolute Neutrophils 18.78 k/cumm (1.2-6.7) H 07/30/19 06:15 Absolute Lymphocytes 2.50 k/cumm (1.2-3.4) 07/30/19 06:15 Absolute Monocytes 1.50 k/cumm (0.11-0.7) H 07/30/19 06:15 Absolute Eosinophils 0.50 k/cumm (0.0-0.7) 07/30/19 06:15 Absolute Basophils 0.00 k/cumm (0.0-0.2) 07/30/19 06:15 Nucleated RBCs 2 /100WBC 07/30/19 06:15 Differential Comment Manual differential 07/30/19 06:15 RBC Morphology See below 07/30/19 06:15 Polychromasia Present 07/29/19 06:45 Hypochromasia 2+ 07/30/19 06:15 Poikilocytosis 2+ 07/30/19 06:15 Basophilic Stippling Present 07/29/19 06:45 Anisocytosis 2+ 07/29/19 06:45 Microcytosis 2+ 07/30/19 06:15 Ovalocytes 2+ 07/29/19 06:45 ESR 55 mm/hr (1-20) H 07/24/19 18:10 PT 10.8 sec (9.3-11.0) 07/24/19 18:10 INR 1.1 (0.9-1.1) 07/24/19 18:10 APTT 26.4 sec (21.0-31.4) 07/24/19 18:10 ABG Sample Site Left radial 07/30/19 08:30 ABG pH 7.32 (7.35-7.45) L 07/30/19 08:30 ABG pCO2 53 mmHg (34-47) H 07/30/19 08:30 ABG pO2 117 mmHg (83-108) H 07/30/19 08:30 ABG HCO3 27 mmol/L (22-28) 07/30/19 08:30 ABG Total CO2 26 mmol/L (22-29) 07/30/19 08:30 ABG O2 Saturation 99 % (94-98) H 07/30/19 08:30 ABG Base Excess 0.7 mmol/L (-3-3) 07/30/19 08:30 Oxygen Liter Flow 2 L 07/30/19 08:30 Sodium 141 mmol/L (136-145) 07/31/19 06:35 Potassium 3.6 mmol/L (3.5-5.1) 07/31/19 06:35 Chloride 106 mmol/L (98-107) 07/31/19 06:35 Carbon Dioxide 29.4 mmol/L (21.0-32.0) 07/31/19 06:35 Anion Gap 5.6 mmol/L (3-11) 07/31/19 06:35 BUN 47 mg/dL (7-18) H D 07/31/19 06:35 Creatinine 1.65 mg/dL (0.70-1.30) H 07/31/19 06:35 Estimated GFR/1.73 m2 42.77 (mL/min/1.73m2) 07/31/19 06:35 Glucose 185 mg/dL (74-106) H 07/31/19 06:35 Lactate 0.7 mmol/L (0.6-1.4) 07/30/19 15:40 Calcium 8.3 mg/dL (8.5-10.1) L 07/31/19 06:35 Magnesium 2.0 mg/dL (1.8-2.4) 07/31/19 06:35 Iron 42 ug/dL (65-175) L 07/29/19 06:45 TIBC 157 ug/dL (250-450) L 07/29/19 06:45 Transferrin % Sat 27 % (20-55) 07/29/19 06:45 Ferritin 660 ng/mL (26-388) H 07/29/19 06:45 Total Bilirubin 0.3 mg/dL (0.2-1.0) 07/25/19 06:37 AST 8 U/L (15-37) L 07/25/19 06:37 ALT 13 U/L (16-63) L 07/25/19 06:37 Alkaline Phosphatase 117 U/L (46-116) H 07/25/19 06:37 Troponin I < 0.05 ng/mL (<0.06) 07/30/19 09:40 C-Reactive Protein 4.84 mg/dL (0.0-0.3) H 07/26/19 06:45 Total Protein 6.6 g/dL (6.4-8.2) 07/25/19 06:37 Albumin 2.2 g/dL (3.4-5.0) L 07/25/19 06:37 Tumor Marker AFP <2.5 ng/mL (<8.1) 07/27/19 06:35 Carcinoembryonic Ag 1.5 ng/ml (See Note) 07/26/19 06:45 Procalcitonin 0.5 ng/mL 07/30/19 09:40 TSH 0.28 uIU/mL (0.36-3.74) L 07/24/19 18:10 Free T4 1.20 ng/dL (0.76-1.46) 07/24/19 18:10 Urine Color Yellow (Yellow) 07/24/19 18:40 Urine Clarity Cloudy (Clear) 07/24/19 18:40 Urine pH 6.0 (5-8) 07/24/19 18:40 Ur Specific [place] 1.010 (1.005-1.025) 07/24/19 18:40 Urine Protein 30 mg/dL (Negative) H 07/24/19 18:40 Urine Ketones Negative mg/dL (Negative) 07/24/19 18:40 Urine Blood Moderate (Negative) H 07/24/19 18:40 Urine Nitrite Positive (Negative) H 07/24/19 18:40 Urine Bilirubin Negative (Negative) 07/24/19 18:40 Urine Urobilinogen 0.2 EU/dL (Up TO 0.2) 07/24/19 18:40 Ur Leukocyte Esterase Moderate (Negative) H 07/24/19 18:40 Urine RBC Not Applicable 07/24/19 18:40 Urine WBC >50 HPF (0-5) H 07/24/19 18:40 Ur Epithelial Cells Not Applicable 07/24/19 18:40 Urine Crystals Not Applicable 07/24/19 18:40 Urine Bacteria HPF (Negative) 07/24/19 18:40 Urine Mucus Not Applicable 07/24/19 18:40 Ur Culture Indicated? Yes 07/24/19 18:40 Urine Glucose >=1000 mg/dL (Negative) H 07/24/19 18:40 Vancomycin Trough 15.1 ug/mL (10.0-20.0) 07/29/19 13:20 c-ANCA Negative (Negative) 07/27/19 06:35 p-ANCA Negative (Negative) 07/27/19 06:35 COVID-19 PCR Negative (Negative) 07/24/19 21:45 Nasopharyn COVID-19 PCR Not Applicable 07/24/19 21:45 Ref Test Perform Site [facility] lab 07/24/19 21:45 Patient ABO/Rh AB Negative 07/25/19 10:55 Antibody Screen Negative 07/25/19 10:55
[2019-07-31] MEDS: Omnipaque 350 MG/ML 50 ML BTL PO (12:57)
--- NOTE | 2019-07-31 14:50 | DI.CT_ITS ---
EXAM: CT ABDOMEN PELVIS WO CLINICAL HISTORY: ?Small bowel obstruction, pain TECHNIQUE: Imaging Protocol: Axial computed tomography images with coronal and sagittal reformatted images were created and reviewed. Oral contrast was administered. There is patient motion artifact. COMPARISON: CT CT PELVIC WO from 07/24/2019 FINDINGS: ABDOMEN: Lung Bases: There are small bilateral pleural effusions and subjacent infiltrates which may represent atelectasis or pneumonia. There are calcified lymph nodes in the mediastinum consistent with prior g ranulomatous disease. There is cardiomegaly. Liver: Normal density. No measurable mass. Gallbladder and biliary tract: Cholelithiasis. Pancreas: Normal density, no abnormal calcifications or inflammatory process. Pancreatic atrophy. Spleen: Normal. Kidneys: There appears to be left renal atrophy. No radiodense stones or obstructive uropathy. No ma sses seen. Adrenal glands: No mass is seen. Lymph nodes: Within normal limits. Abdominal Aorta: Abdominal portion non-dilated. IVC: IVC filter in place. PELVIS: Bladder: Decompressed with the presence of a Downing catheter. Bowel: There is a right lower quadrant ostomy. There are dilated fluid-filled loops of bowel up to 4 cm in diameter. The distal small bowel is of normal caliber. The transition appears to lie anterio r to the sacrum. The patient is status post colectomy Peritoneal cavity: Small amount of ascites in the right upper quadrant. Reproductive organs: Within normal limits. Bones: Multilevel degenerative changes of the lumbar spine. Soft Tissues: There is a soft tissue defect overlying the sacrum suspicious for a decubitus ulcer. P reviously noted fluid collection in the subcutaneous tissues around the sacrum is not visualized. IMPRESSION: 1. Findings most suggestive of a small bowel obstruction. The transition appears to lie anterior to the sacrum. 2. Findings suggestive of a decubitus ulcer. 3. Bilateral pleural effusions with bilateral basilar infiltrates which may represent atelectasis or pneumonia. RADIATION DOSE DELIVERED: 1,359.39mGy.cm Total DLP DATA REPOSITORY: All CT scans at this facility are submitted to the National Radiology Data Registry (NRDR) Dose Index Registry (DIR) with the [employer] ([employer]). RADIATION OPTIMIZATION: All CT scans at this facility use at least one of these dose optimization te chniques: automated exposure control; mA and/or kV adjustment per patient size (includes targeted exa ms where dose is matched to clinical indication); or iterative reconstruction.
--- NOTE | 2019-07-31 15:29 | DI.VRAD_ITS ---
Addendum created by Melva Garza MD on 07/31/2019 3:32:17 PM EDT I discussed case findings with PATITO MELGAR 07/31/2019 3:30 PM EST. Initial report created on 07/31/2019 3:28:41 PM EDT PROCEDURE INFORMATION: Exam: CT Abdomen And Pelvis Without Contrast Exam date and time: 07/31/2019 12:39 PM Age: 59 years old Clinical indication: Generalized; Patient HX: ? Sbo, abdominal pain n/v; Additional info: Best images possible do to patient unable to hold still. TECHNIQUE: Imaging protocol: Computed tomography of the abdomen and pelvis without contrast. Radiation optimization: All CT scans at this facility use at least one of these dose optimization techniques: automated exposure control; mA and/or kV adjustment per patient size (includes targeted exams where dose is matched to clinical indication); or iterative reconstruction. Other technique: GI contrast given. COMPARISON: CT PELVIC WO 07/24/2019 6:36 PM FINDINGS: Pleural space: There are small bilateral pleural effusions with mild bibasilar atelectasis, new. Heart: Cardiomegaly. Liver: Normal. No mass. Gallbladder and bile ducts: Gallstones again seen. Pancreas: Pancreatic atrophy unchanged. Spleen: Normal. No splenomegaly. Adrenals: Normal. No mass. Kidneys and ureters: Normal. No hydronephrosis. Stomach and bowel: There is a right lower quadrant ostomy. The rectum has been removed. There are multiple fluid-filled distended small bowel loops with diameter exceeding 4 cm at some levels. Distal loops appear decompressed. The transition zone may lie at the presacral level. This is appreciated sagittally series 5, images 75-82. This corresponds to the approximate mid ileal level. Appendix: No evidence of appendicitis. Intraperitoneal space: Minimal right upper quadrant ascites. Vasculature: IVC filter in place. Lymph nodes: Calcified mediastinal lymph nodes are consistent with old granulomatous change. Bladder: Downing catheter drains the bladder. Reproductive: Unremarkable as visualized. Bones/joints: Moderate lumbar spondylosis. There is severe spondylosis of the mid and lower lumbar spine with near ankylosis at the L2-L3 level again seen. Soft tissues: Lipomatous change proximal right thigh again noted. There appears to be a decubitus ulcer present at the sacrococcygeal level. This corresponds to a previously seen apparent abscess collection. IMPRESSION: Small-bowel obstruction. There appears to be a transition zone at the pre sacral level. COMMENTS: Preliminary interpretation is based on receipt of 1432 image(s). A final report will be issued subsequently. Dictated and Authenticated by: Melva Garza MD. Ordering:LACEY Francois MD
[2019-07-31] MEDS: Furosemide 20 MG/2 ML VIAL IVP (16:27)
[2019-07-31] MEDS: Benzocaine 20% Gel 30 GM JAR MM (16:35)
[2019-07-31] MEDS: Hydrocortisone SOD SUC. 100 MG VIAL 50 MG IVP (18:08)
[2019-07-31] MEDS: Normal Saline Flush 10 ML SYR 20 ML IVP (19:41)
[2019-07-31] MEDS: Levothyroxine 25 MCG TAB 12.5 MCG PO (21:53)
[2019-07-31] MEDS: Insulin Glargine 300 UNITS/3 ML PEN 30 UNITS SC (22:05)
--- NOTE | 2019-07-31 22:15 | NUR.NOTE ---
Nursing Note: This nurse encouraged pt on using trillogy and educated pt on benefits of use, pt continues refusal of this machine at this time.
[2019-08-01] VITALS (68 sets, daily range): BP systolic 150–191; BP diastolic 54–86; PULSE 40–67; RESP 11–21; TEMP 36.1–36.8; O2SAT 85–100
[2019-08-01] MEDS: Hydrocortisone SOD SUC. 100 MG VIAL 50 MG IVP ×3 (02:25→14:02)
[2019-08-01] MEDS: Normal Saline Flush 10 ML SYR IVP ×7 (02:26→23:00)
[2019-08-01] MEDS: ACETAMINOPHEN 1,000 MG/100 ML BTL 400 MG IVPB ×3 (05:31→22:36)
[2019-08-01] MEDS: Insulin NPH-Human 300 UNITS/3 ML PEN SC (05:34)
[2019-08-01 06:57] LABS: HCT 28.9 % (40.0-50.0); HGB 8.8 g/dL (13.5-17.5); Mean Corp. HGB Concentration 30.4 g/dL (32.0-36.0); Mean Corpuscular Hemoglobin 22.4 pg (27.0-33.0); Mean Corpuscular Volume 73.7 fL (80-95); Mean Platelet Volume 8.8 fL (8.0-11.0); Platelet Count 302 x1000/uL (130-400); RBC 3.92 m/cumm (4.50-6.00); RBC Distribution Width 17.7 % (11.8-14.1)
[2019-08-01 07:01] LABS: Anion Gap 7.4 mmol/L (3-11); BUN 36 mg/dL (7-18); CO2 29.6 mmol/L (21.0-32.0); CREATININE 1.58 mg/dL (0.70-1.30); Calcium 8.4 mg/dL (8.5-10.1); Chloride 107 mmol/L (98-107); Estimated GFR 44.96 (mL/min/1.73m2); Glucose 104 mg/dL (74-106); Magnesium 1.8 mg/dL (1.8-2.4); Sodium 144 mmol/L (136-145)
[2019-08-01 07:39] LABS: Absolute Lymphocyte Count 1.52 k/cumm (1.2-3.4); Absolute Monocyte Count 0.41 k/cumm (0.11-0.7); Diff Comment Manual Differential; Nucleated RBC 1 /100WBC
[2019-08-01 07:40] LABS: Hypochromasia 2+; Microcytosis 2+; Polychromasia Present
[2019-08-01 07:41] LABS: Poikilocytes 2+
--- NOTE | 2019-08-01 08:23 | CMPROGNOTE_ITS ---
- If Service Date Differs Date of service: 08/01/19 Time of Service: 08:23 Care Management Progress Note S/O: Brendan was lying in bed when CM met with him. He had the Trilogy in place over an NG tube. Brendan was fairly lethargic during visit. He responded to questions with one or 2 word answers. He stated that he continues to have abdominal pain and that the past 24 hours have been very difficult. He experienced some cardiac dysrhythmias overnight but this seems to be improved with use of the Trilogy. Brendan remains ICU level of care. CM to follow. A: Brendan is a 59 year old man admitted from the [facility] on 07/24/19 with UTI and a sacral ulcer P: Brendan will need assisted IV antibiotic therapy to treat the infected decubitus ulcer he presented with. Since the [facility] is unable to provide this service, he will likely need to transition to SB-1 status at some point. Ultimately, Brendan will return to the [facility] when treatment is complete. CM will continue to support Brendan and his discharge planning concerns and will update his sister as needed.
[2019-08-01 08:46] LABS: Troponin I < 0.05 ng/mL (<0.06)
[2019-08-01] MEDS: Normal Saline Flush 10 ML SYR 20 ML IVP ×2 (08:54→20:22)
[2019-08-01] MEDS: Pantoprazole 40 MG VIAL IVP (08:54)
[2019-08-01] MEDS: Furosemide 20 MG/2 ML VIAL IVP (08:54)
[2019-08-01] MEDS: POTASSIUM CHLORIDE 20 MEQ/100 ML BAG 50 MEQ IVPB ×4 (08:55→14:53)
[2019-08-01] MEDS: FLUCONAZOLE 200 MG/100 ML BAG 100 MG IVPB (09:20)
--- NOTE | 2019-08-01 10:11 | PGE_ITS ---
Date of Service Date of service: 08/01/19 Time of Service: 10:11 Assessment and Plan Assessment and plan (1) SBO (small bowel obstruction): Status: Acute Assessment and plan: S/p NGT. NPO. Surgery following. Check XR abdomen to confirm location of tip of NGT. Continue NGT for now and plan to manage non-operatively at this time. If the patient should require surgery, he is considered high anesthesia/cardiac risk and would require transfer to a tertiary care facility. (2) Ventricular escape rhythm: Status: Acute Assessment and plan: This appears to be associated with sleep and seems to not be happening as much with re-inititaion of trilogy. Continue trilogy. Vagal pathology also possible, given presence of NGT. Trend troponins. Replete K. Obtaining echo tomorrow. Negative MPI in 12/2018 ([facility] [place] Would benefit from a cardiology consult. LBBB morphology is new - and while the patient had a negative MPI recently - it could be suggestive of underlying CAD. (3) Hypokalemia: Status: Acute Assessment and plan: Replete, monitor. (4) MRSA bacteremia: Status: Acute Assessment and plan: On blood cultures 07/24/2019, cleared on blood cultures on 07/27/2019. Likely source is the decubitous wound (present on admission). Continue vancomycin x 4 weeks since negative blood cultures. Expected end date is 08/23/2019. Needs an echo - planned for tomorrow. (5) Decubitus ulcer, stage 4 with infection: Status: Acute Assessment and plan: s/p surgical debridement on and 07/26/2019. Continue wound vac. Surgical wound cx with MRSA. Continue vancomycin. Continue MVI, vitamin C, zinc supplementation per nutrition. Offload/mobilize as able. (6) ESBL (extended spectrum beta-lactamase) producing bacteria infection: Status: Acute Assessment and plan: UTI Due to ESBL E. Coli, present on admission, now s/p ruiz. Should be sensitive to meropenem (day 6). Continue for now. Recheck UA tomorrow - if still positive, would plan for a 2 week course. If negative, can consider d/c'ing meropenem. (7) Vomiting: Status: Resolved Assessment and plan: Due to SBO. Resolved with NGT in place. (8) Adrenal insufficiency: Status: Chronic Assessment and plan: Continue solucortef 50 mg IV Q 6 hrs. (9) Acute kidney injury superimposed on chronic kidney disease: Status: Acute Assessment and plan: Improved post insertion of ruiz catheter. Tolerating diuresis. Continue diuresis, monitoring I/O's and daily weights. (10) Hyperkalemia: Status: Resolved Assessment and plan: Resolved with treatment of JESUS and adrenal crisis. (11) CAD (coronary artery disease): Status: Chronic Assessment and plan: Neg MPI in 12/2018. However, periodic appearance of LBBB is concerning. Trend troponins, continue to monitor on tele. Plan to consult cardiology in am and obtain an echo tomorrow. (12) Atrial flutter, paroxysmal: Status: Chronic Assessment and plan: In NSR at this time. Continue to monitor on a diagnostic cardiac sonographer. (13) Diabetes mellitus: Status: Chronic Assessment and plan: D/c NPH. Decrease lantus. Continue corrective rapid acting insulin. Qualifiers: Diabetes mellitus type: type 2 Diabetes mellitus nursing home insulin use: with nursing home use Diabetes mellitus complication status: with neurologic complications Diabetes mellitus complication detail: with polyneuropathy Qualified Code(s): E11.42 - Type 2 diabetes mellitus with diabetic polyneuropathy; Z79.4 - superintendent terminal (current) use of insulin (14) History of DVT (deep vein thrombosis): Status: Acute Assessment and plan: S/p IVC filter. Anticoagulation on hold due to bleeding decubitus wound. (15) Bradycardia: Status: Chronic Assessment and plan: Monitor on diagnostic cardiac sonographer. Continue beta blockers with holding parameters. (16) CHF (congestive heart failure): Status: Chronic Assessment and plan: Lasix resumed yesterday as nursing reported crackles and small pleural effusions were seen on CT. (17) Hypoventilation associated with obesity syndrome: Status: Chronic Assessment and plan: Encourage trilogy whenever asleep. Could be contributing to ventricular rhythm episodes we are seeing. (18) Hypertension: Status: Chronic Assessment and plan: Continue to hold amlodipine, clonidine and fu rosemide. Continue IV Metoprolol with holding parameters. Qualifiers: Hypertension type: essential hypertension Qualified Code(s): I10 - Essential (primary) hypertension (19) Ulcer of left lower leg: Status: Chronic Assessment and plan: Continue wound care with Mepilex. Qualifiers: Non-pressure ulcer stage: limited to breakdown of skin Qualified Code(s): L97.921 - Non-pressure chronic ulcer of unspecified part of left lower leg limited to breakdown of skin (20) DVT prophylaxis: Status: Acute Assessment and plan: S/p IVC filter. Chemical treatment/ppx is contraindicated due to the bleeding decubitous wound. (21) Discharge planning issues: Status: Acute Assessment and plan: Full code. Continues to require hospitalization. Keep in ICU. Total Critical Care Time 45 minutes. Subjective Subjective Interval history since last seen: Mr Corley had a minute-long episode of going into a wide-complex rhythm last night while asleep off trilogy. He did not have any of these episodes last night once the trilogy was put on him. 4 short bursts of similar activity this am, off trilogy. Resolved now with trilogy on. EKG did catch one of these episodes - LBBB, new, HR 60. He is s/p NGT last night for SBO. >1000 cc out since -billious. When awake, denies dizziness, chest pain, shortness of breath, nausea. Still reports slight RLQ pain/pain around ostomy. Exam Narrative Exam Narrative: General: Pleasant obese male, asleep with trilogy and NGT, easily arousable, A&Ox3, falls back asleep quickly HEENT: EOMI, MMM Heart: RRR, no m/r/g Lungs: CTAB anteriorly Abdomen: soft, bowel sounds I am hearing are likely the sounds from NGT aspira ting, mildly tender around ostomy. Ostomy with a small amount of serosanguenous output; appears to be more retracted Extremities: +1 BLE edema, unchanged, B chronic venous stasis changes; LLE tibial surface dressed - c/d/i Objective Objective Clinical Data: Abnormal lab results 08/01/19 08/01/19 Range/Units 06:40 06:40 WBC 13.80 H D (4.4-10.8) k/cumm RBC 3.92 L (4.50-6.00) m/cumm Hgb 8.8 L (13.5-17.5) g/dL Hct 28.9 L (40.0-50.0) % MCV 73.7 L (80-95) fL MCH 22.4 L (27.0-33.0) pg MCHC 30.4 L (32.0-36.0) g/dL RDW 17.7 H (11.8-14.1) % Absolute Neutrophils 10.90 H (1.2-6.7) k/cumm Potassium 3.0 L (3.5-5.1) mmol/L BUN 36 H D (7-18) mg/dL Creatinine 1.58 H (0.70-1.30) mg/dL Calcium 8.4 L (8.5-10.1) mg/dL Vital Signs Temperature 36.1 C L 08/01/19 08:02 Temperature Source Temporal Artery Scan 08/01/19 08:02 Pulse 51 L 08/01/19 07:30 Pulse Rhythm Regular 07/30/19 07:30 Pulse 53 L 08/01/19 07:30 Respiratory Rate 11 L 08/01/19 07:30 Respiratory Effort Non-Labored 08/01/19 04:02 Respiratory Depth Normal 08/01/19 04:02 Respiratory Pattern Normal 08/01/19 04:02 Blood Pressure 163/77 H 08/01/19 07:30 Blood Pressure Mean 97 08/01/19 07:30 Blood Pressure Position Supine 08/01/19 08:02 Pulse Oximetry 96 08/01/19 08:13 Oxygen Delivery Method Nasal Cannula 08/01/19 08:13 Oxygen Flow Rate 0.5 08/01/19 08:13 Pain Level 0 08/01/19 08:02 Comment 07/29/19 08:04 Intake & Output 07/31/19 07/31/19 08/01/19 11:59 23:59 11:59 Intake Total 2840 / 3836.667 996.667 / 3836.667 375 / 375 Output Total 1650 / 5225 3575 / 5225 2200 / 2200 Balance 1190 / -1388.333 -2578.333 / -1388.333 -1825 / -1825 Intake: IV 1550 / 2546.667 996.667 / 2546.667 375 / 375 Oral 1290 / 1290 Output: Gastric Drainage 1450 / 1450 1000 / 1000 Right Nare 1450 / 1450 1000 / 1000 Urine 1575 / 3700 2125 / 3700 1200 / 1200 Stool 75 / 75 Other: Urine Color Yellow Pale Pale Yellow Yellow Urine Appearance Clear Clear Clear Sediment Comment Ruiz intact and draining clear yellow urine. fley patent and draining clear very light yellow urine at this time. ruiz patent and draining clear very light yellow urine at this time. Has adequate output Gastric Occult Blood Right Nare Negative Positive Laboratory Results WBC 13.80 k/cumm (4.4-10.8) H D 08/01/19 06:40 RBC 3.92 m/cumm (4.50-6.00) L 08/01/19 06:40 Hgb 8.8 g/dL (13.5-17.5) L 08/01/19 06:40 Hct 28.9 % (40.0-50.0) L 08/01/19 06:40 MCV 73.7 fL (80-95) L 08/01/19 06:40 MCH 22.4 pg (27.0-33.0) L 08/01/19 06:40 MCHC 30.4 g/dL (32.0-36.0) L 08/01/19 06:40 RDW 17.7 % (11.8-14.1) H 08/01/19 06:40 Plt Count 302 x1000/uL (130-400) 08/01/19 06:40 MPV 8.8 fL (8.0-11.0) 08/01/19 06:40 Immature Gran % See Differential 08/01/19 06:40 Neutrophils % 79.0 08/01/19 06:40 Band Neutrophils % 2.0 % 07/30/19 06:15 Lymphocytes % 11.0 08/01/19 06:40 Monocytes % 3.0 08/01/19 06:40 Eosinophils % 0.0 08/01/19 06:40 Basophils % 0.0 08/01/19 06:40 Metamyelocytes % 3.0 % 08/01/19 06:40 Myelocytes % 4.0 % 08/01/19 06:40 Absolute Neutrophils 10.90 k/cumm (1.2-6.7) H 08/01/19 06:40 Absolute Lymphocytes 1.52 k/cumm (1.2-3.4) 08/01/19 06:40 Absolute Monocytes 0.41 k/cumm (0.11-0.7) 08/01/19 06:40 Absolute Eosinophils 0.00 k/cumm (0.0-0.7) 08/01/19 06:40 Absolute Basophils 0.00 k/cumm (0.0-0.2) 08/01/19 06:40 Nucleated RBCs 1 /100WBC 08/01/19 06:40 Differential Comment Manual differential 08/01/19 06:40 RBC Morphology See below 08/01/19 06:40 Polychromasia Present 08/01/19 06:40 Hypochromasia 2+ 08/01/19 06:40 Poikilocytosis 2+ 08/01/19 06:40 Basophilic Stippling Present 07/29/19 06:45 Anisocytosis 2+ 07/29/19 06:45 Microcytosis 2+ 08/01/19 06:40 Ovalocytes 2+ 07/29/19 06:45 ESR 55 mm/hr (1-20) H 07/24/19 18:10 PT 10.8 sec (9.3-11.0) 07/24/19 18:10 INR 1.1 (0.9-1.1) 07/24/19 18:10 APTT 26.4 sec (21.0-31.4) 07/24/19 18:10 ABG Sample Site Left radial 07/30/19 08:30 ABG pH 7.32 (7.35-7.45) L 07/30/19 08:30 ABG pCO2 53 mmHg (34-47) H 07/30/19 08:30 ABG pO2 117 mmHg (83-108) H 07/30/19 08:30 ABG HCO3 27 mmol/L (22-28) 07/30/19 08:30 ABG Total CO2 26 mmol/L (22-29) 07/30/19 08:30 ABG O2 Saturation 99 % (94-98) H 07/30/19 08:30 ABG Base Excess 0.7 mmol/L (-3-3) 07/30/19 08:30 Oxygen Liter Flow 2 L 07/30/19 08:30 Sodium 144 mmol/L (136-145) 08/01/19 06:40 Potassium 3.0 mmol/L (3.5-5.1) L 08/01/19 06:40 Chloride 107 mmol/L (98-107) 08/01/19 06:40 Carbon Dioxide 29.6 mmol/L (21.0-32.0) 08/01/19 06:40 Anion Gap 7.4 mmol/L (3-11) 08/01/19 06:40 BUN 36 mg/dL (7-18) H D 08/01/19 06:40 Creatinine 1.58 mg/dL (0.70-1.30) H 08/01/19 06:40 Estimated GFR/1.73 m2 44.96 (mL/min/1.73m2) 08/01/19 06:40 Glucose 104 mg/dL (74-106) D 08/01/19 06:40 Lactate 0.7 mmol/L (0.6-1.4) 07/30/19 15:40 Calcium 8.4 mg/dL (8.5-10.1) L 08/01/19 06:40 Magnesium 1.8 mg/dL (1.8-2.4) 08/01/19 06:40 Iron 42 ug/dL (65-175) L 07/29/19 06:45 TIBC 157 ug/dL (250-450) L 07/29/19 06:45 Transferrin % Sat 27 % (20-55) 07/29/19 06:45 Ferritin 660 ng/mL (26-388) H 07/29/19 06:45 Total Bilirubin 0.3 mg/dL (0.2-1.0) 07/25/19 06:37 AST 8 U/L (15-37) L 07/25/19 06:37 ALT 13 U/L (16-63) L 07/25/19 06:37 Alkaline Phosphatase 117 U/L (46-116) H 07/25/19 06:37 Troponin I < 0.05 ng/mL (<0.06) 08/01/19 06:40 C-Reactive Protein 4.84 mg/dL (0.0-0.3) H 07/26/19 06:45 Total Protein 6.6 g/dL (6.4-8.2) 07/25/19 06:37 Albumin 2.2 g/dL (3.4-5.0) L 07/25/19 06:37 Tumor Marker AFP <2.5 ng/mL (<8.1) 07/27/19 06:35 Carcinoembryonic Ag 1.5 ng/ml (See Note) 07/26/19 06:45 Procalcitonin 0.5 ng/mL 07/30/19 09:40 TSH 0.28 uIU/mL (0.36-3.74) L 07/24/19 18:10 Free T4 1.20 ng/dL (0.76-1.46) 07/24/19 18:10 Urine Color Yellow (Yellow) 07/24/19 18:40 Urine Clarity Cloudy (Clear) 07/24/19 18:40 Urine pH 6.0 (5-8) 07/24/19 18:40 Ur Specific [place] 1.010 (1.005-1.025) 07/24/19 18:40 Urine Protein 30 mg/dL (Negative) H 07/24/19 18:40 Urine Ketones Negative mg/dL (Negative) 07/24/19 18:40 Urine Blood Moderate (Negative) H 07/24/19 18:40 Urine Nitrite Positive (Negative) H 07/24/19 18:40 Urine Bilirubin Negative (Negative) 07/24/19 18:40 Urine Urobilinogen 0.2 EU/dL (Up TO 0.2) 07/24/19 18:40 Ur Leukocyte Esterase Moderate (Negative) H 07/24/19 18:40 Urine RBC Not Applicable 07/24/19 18:40 Urine WBC >50 HPF (0-5) H 07/24/19 18:40 Ur Epithelial Cells Not Applicable 07/24/19 18:40 Urine Crystals Not Applicable 07/24/19 18:40 Urine Bacteria HPF (Negative) 07/24/19 18:40 Urine Mucus Not Applicable 07/24/19 18:40 Ur Culture Indicated? Yes 07/24/19 18:40 Urine Glucose >=1000 mg/dL (Negative) H 07/24/19 18:40 Vancomycin Trough 15.1 ug/mL (10.0-20.0) 07/29/19 13:20 c-ANCA Negative (Negative) 07/27/19 06:35 p-ANCA Negative (Negative) 07/27/19 06:35 COVID-19 PCR Negative (Negative) 07/24/19 21:45 Nasopharyn COVID-19 PCR Not Applicable 07/24/19 21:45 Ref Test Perform Site [facility] lab 07/24/19 21:45 Patient ABO/Rh AB Negative 07/25/19 10:55 Antibody Screen Negative 07/25/19 10:55 EKG 08:33: SR, HR 57, frequent PVCs. EKG 08:36: LBBB (new), I do not always see a P-wave - ? junctional. HR 60.
[2019-08-01] MEDS: MEROPENEM 1 GM in Normal Saline 100 ML IVPB ×2 (10:29→22:50)
--- NOTE | 2019-08-01 10:49 | W.PM.PROGNOT ---
Date of Service Date of service: 08/01/19 Time of Service: 10:50 Assessment and Plan Assessment and plan (1) Ulcer of left lower leg: Status: Chronic Assessment and plan: Continue with dressing changes Qualifiers: Non-pressure ulcer stage: limited to breakdown of skin Qualified Code(s): L97.921 - Non-pressure chronic ulcer of unspecified part of left lower leg limited to breakdown of skin (2) MRSA bacteremia: Status: Acute Assessment and plan: Treat per Hospitalist Awaiting Tissue bx results (3) Chronic iron deficiency anemia: Status: Acute (4) Protein-calorie malnutrition, mild: Status: Acute Assessment and plan: A\\ Now with SBO. He is malnurished and needs nutrition P\\ recommend TPN. Patient has a PICC line (5) Decubitus ulcer, stage 4 with infection: Status: Acute Assessment and plan: wound VAC four wks of abx- pressure relief mattress cont iron nutritional supplements tight control over blood sugars PT as tolerated Wound vac to be changed tomorrow (6) Diabetic foot ulcer: Status: Chronic Qualifiers: Diabetic foot ulcer location: toe Diabetes mellitus type: type 2 Laterality: left Non-pressure ulcer stage: with fat layer exposed Qualified Code(s): E11.621 - Type 2 diabetes mellitus with foot ulcer; L97.522 - Non-pressure chronic ulcer of other part of left foot with fat layer exposed (7) SBO (small bowel obstruction): Status: Acute Assessment and plan: A\\ CT scan yesterday showed SBO with possible transition point in pelvis. Ileostomy looked fine. No wall thickening of bowel and no inflammatory stranding so less likely to be a Crohns flare. P\\ Continue with NG decompression and NPO status If no improvement in next 24 to 48 hours may need ex-lap for STEPHEN. With all his medical issues he will most likely not be a candidate to have surgery here and will need [place] [facility] [place] [facility]. Subjective Subjective Interval history since last seen: Brendan is doing OK this am. he doesn't complain of sacral pain after having his position changed. he is cold and his abdomen is shaking. Patient states that he feels chilled. NG tube was placed last night. He has had 700 cc out since 6 am. The output looks fecal. Exam Const General: ill appearing Orientation: alert and oriented x3 HENMT Head: normocephalic and atraumatic Resp Effort & Inspection: normal respiratory effort Cardio Rate: regular rate Rhythm: regular rhythm GI Inspection: obesity and other (abdomen is shaking) Palpation: soft, no hepatosplenomegaly and nontender Auscultation: hyperactive bowel sounds Objective Objective Clinical Data: Abnormal lab results 08/01/19 08/01/19 Range/Units 06:40 06:40 WBC 13.80 H D (4.4-10.8) k/cumm RBC 3.92 L (4.50-6.00) m/cumm Hgb 8.8 L (13.5-17.5) g/dL Hct 28.9 L (40.0-50.0) % MCV 73.7 L (80-95) fL MCH 22.4 L (27.0-33.0) pg MCHC 30.4 L (32.0-36.0) g/dL RDW 17.7 H (11.8-14.1) % Absolute Neutrophils 10.90 H (1.2-6.7) k/cumm Potassium 3.0 L (3.5-5.1) mmol/L BUN 36 H D (7-18) mg/dL Creatinine 1.58 H (0.70-1.30) mg/dL Calcium 8.4 L (8.5-10.1) mg/dL Vital Signs Temperature 97.0 F L 08/01/19 08:02 Temperature Source Temporal Artery Scan 08/01/19 08:02 Pulse 51 L 08/01/19 07:30 Pulse Rhythm Regular 07/30/19 07:30 Pulse 53 L 08/01/19 07:30 Respiratory Rate 11 L 08/01/19 07:30 Respiratory Effort Non-Labored 08/01/19 04:02 Respiratory Depth Normal 08/01/19 04:02 Respiratory Pattern Normal 08/01/19 04:02 Blood Pressure 163/77 H 08/01/19 07:30 Blood Pressure Mean 97 08/01/19 07:30 Blood Pressure Position Supine 08/01/19 08:02 Pulse Oximetry 96 08/01/19 08:13 Oxygen Delivery Method Nasal Cannula 08/01/19 08:13 Oxygen Flow Rate 0.5 08/01/19 08:13 Pain Level 6 08/01/19 10:28 Comment 07/29/19 08:04 Intake & Output 07/31/19 07/31/19 08/01/19 11:59 23:59 11:59 Intake Total 2840 / 3836.667 996.667 / 3836.667 375 / 375 Output Total 1650 / 5225 3575 / 5225 2200 / 2200 Balance 1190 / -1388.333 -2578.333 / -1388.333 -1825 / -1825 Intake: IV 1550 / 2546.667 996.667 / 2546.667 375 / 375 Oral 1290 / 1290 Output: Gastric Drainage 1450 / 1450 1000 / 1000 Right Nare 1450 / 1450 1000 / 1000 Urine 1575 / 3700 2125 / 3700 1200 / 1200 Stool 75 / 75 Other: Urine Color Yellow Pale Pale Yellow Yellow Urine Appearance Clear Clear Clear Sediment Comment Ruiz intact and draining clear yellow urine. fley patent and draining clear very light yellow urine at this time. ruiz patent and draining clear very light yellow urine at this time. Has adequate output Gastric Occult Blood Right Nare Negative Positive Laboratory Results WBC 13.80 k/cumm (4.4-10.8) H D 08/01/19 06:40 RBC 3.92 m/cumm (4.50-6.00) L 08/01/19 06:40 Hgb 8.8 g/dL (13.5-17.5) L 08/01/19 06:40 Hct 28.9 % (40.0-50.0) L 08/01/19 06:40 MCV 73.7 fL (80-95) L 08/01/19 06:40 MCH 22.4 pg (27.0-33.0) L 08/01/19 06:40 MCHC 30.4 g/dL (32.0-36.0) L 08/01/19 06:40 RDW 17.7 % (11.8-14.1) H 08/01/19 06:40 Plt Count 302 x1000/uL (130-400) 08/01/19 06:40 MPV 8.8 fL (8.0-11.0) 08/01/19 06:40 Immature Gran % See Differential 08/01/19 06:40 Neutrophils % 79.0 08/01/19 06:40 Band Neutrophils % 2.0 % 07/30/19 06:15 Lymphocytes % 11.0 08/01/19 06:40 Monocytes % 3.0 08/01/19 06:40 Eosinophils % 0.0 08/01/19 06:40 Basophils % 0.0 08/01/19 06:40 Metamyelocytes % 3.0 % 08/01/19 06:40 Myelocytes % 4.0 % 08/01/19 06:40 Absolute Neutrophils 10.90 k/cumm (1.2-6.7) H 08/01/19 06:40 Absolute Lymphocytes 1.52 k/cumm (1.2-3.4) 08/01/19 06:40 Absolute Monocytes 0.41 k/cumm (0.11-0.7) 08/01/19 06:40 Absolute Eosinophils 0.00 k/cumm (0.0-0.7) 08/01/19 06:40 Absolute Basophils 0.00 k/cumm (0.0-0.2) 08/01/19 06:40 Nucleated RBCs 1 /100WBC 08/01/19 06:40 Differential Comment Manual differential 08/01/19 06:40 RBC Morphology See below 08/01/19 06:40 Polychromasia Present 08/01/19 06:40 Hypochromasia 2+ 08/01/19 06:40 Poikilocytosis 2+ 08/01/19 06:40 Basophilic Stippling Present 07/29/19 06:45 Anisocytosis 2+ 07/29/19 06:45 Microcytosis 2+ 08/01/19 06:40 Ovalocytes 2+ 07/29/19 06:45 ESR 55 mm/hr (1-20) H 07/24/19 18:10 PT 10.8 sec (9.3-11.0) 07/24/19 18:10 INR 1.1 (0.9-1.1) 07/24/19 18:10 APTT 26.4 sec (21.0-31.4) 07/24/19 18:10 ABG Sample Site Left radial 07/30/19 08:30 ABG pH 7.32 (7.35-7.45) L 07/30/19 08:30 ABG pCO2 53 mmHg (34-47) H 07/30/19 08:30 ABG pO2 117 mmHg (83-108) H 07/30/19 08:30 ABG HCO3 27 mmol/L (22-28) 07/30/19 08:30 ABG Total CO2 26 mmol/L (22-29) 07/30/19 08:30 ABG O2 Saturation 99 % (94-98) H 07/30/19 08:30 ABG Base Excess 0.7 mmol/L (-3-3) 07/30/19 08:30 Oxygen Liter Flow 2 L 07/30/19 08:30 Sodium 144 mmol/L (136-145) 08/01/19 06:40 Potassium 3.0 mmol/L (3.5-5.1) L 08/01/19 06:40 Chloride 107 mmol/L (98-107) 08/01/19 06:40 Carbon Dioxide 29.6 mmol/L (21.0-32.0) 08/01/19 06:40 Anion Gap 7.4 mmol/L (3-11) 08/01/19 06:40 BUN 36 mg/dL (7-18) H D 08/01/19 06:40 Creatinine 1.58 mg/dL (0.70-1.30) H 08/01/19 06:40 Estimated GFR/1.73 m2 44.96 (mL/min/1.73m2) 08/01/19 06:40 Glucose 104 mg/dL (74-106) D 08/01/19 06:40 Lactate 0.7 mmol/L (0.6-1.4) 07/30/19 15:40 Calcium 8.4 mg/dL (8.5-10.1) L 08/01/19 06:40 Magnesium 1.8 mg/dL (1.8-2.4) 08/01/19 06:40 Iron 42 ug/dL (65-175) L 07/29/19 06:45 TIBC 157 ug/dL (250-450) L 07/29/19 06:45 Transferrin % Sat 27 % (20-55) 07/29/19 06:45 Ferritin 660 ng/mL (26-388) H 07/29/19 06:45 Total Bilirubin 0.3 mg/dL (0.2-1.0) 07/25/19 06:37 AST 8 U/L (15-37) L 07/25/19 06:37 ALT 13 U/L (16-63) L 07/25/19 06:37 Alkaline Phosphatase 117 U/L (46-116) H 07/25/19 06:37 Troponin I < 0.05 ng/mL (<0.06) 08/01/19 06:40 C-Reactive Protein 4.84 mg/dL (0.0-0.3) H 07/26/19 06:45 Total Protein 6.6 g/dL (6.4-8.2) 07/25/19 06:37 Albumin 2.2 g/dL (3.4-5.0) L 07/25/19 06:37 Tumor Marker AFP <2.5 ng/mL (<8.1) 07/27/19 06:35 Carcinoembryonic Ag 1.5 ng/ml (See Note) 07/26/19 06:45 Procalcitonin 0.5 ng/mL 07/30/19 09:40 TSH 0.28 uIU/mL (0.36-3.74) L 07/24/19 18:10 Free T4 1.20 ng/dL (0.76-1.46) 07/24/19 18:10 Urine Color Yellow (Yellow) 07/24/19 18:40 Urine Clarity Cloudy (Clear) 07/24/19 18:40 Urine pH 6.0 (5-8) 07/24/19 18:40 Ur Specific [place] 1.010 (1.005-1.025) 07/24/19 18:40 Urine Protein 30 mg/dL (Negative) H 07/24/19 18:40 Urine Ketones Negative mg/dL (Negative) 07/24/19 18:40 Urine Blood Moderate (Negative) H 07/24/19 18:40 Urine Nitrite Positive (Negative) H 07/24/19 18:40 Urine Bilirubin Negative (Negative) 07/24/19 18:40 Urine Urobilinogen 0.2 EU/dL (Up TO 0.2) 07/24/19 18:40 Ur Leukocyte Esterase Moderate (Negative) H 07/24/19 18:40 Urine RBC Not Applicable 07/24/19 18:40 Urine WBC >50 HPF (0-5) H 07/24/19 18:40 Ur Epithelial Cells Not Applicable 07/24/19 18:40 Urine Crystals Not Applicable 07/24/19 18:40 Urine Bacteria HPF (Negative) 07/24/19 18:40 Urine Mucus Not Applicable 07/24/19 18:40 Ur Culture Indicated? Yes 07/24/19 18:40 Urine Glucose >=1000 mg/dL (Negative) H 07/24/19 18:40 Vancomycin Trough 15.1 ug/mL (10.0-20.0) 07/29/19 13:20 c-ANCA Negative (Negative) 07/27/19 06:35 p-ANCA Negative (Negative) 07/27/19 06:35 COVID-19 PCR Negative (Negative) 07/24/19 21:45 Nasopharyn COVID-19 PCR Not Applicable 07/24/19 21:45 Ref Test Perform Site [facility] lab 07/24/19 21:45 Patient ABO/Rh AB Negative 07/25/19 10:55 Antibody Screen Negative 07/25/19 10:55
[2019-08-01] MEDS: Dextrose 50%-Water 25 GM/50 ML SYR IVP (11:01)
--- NOTE | 2019-08-01 11:45 | DI.RAD_ITS ---
EXAM: XR PORTABLE CHEST AP CLINICAL HISTORY: confirm placement of NGT and tip of PICC TECHNIQUE: 2D digital imaging was performed. COMPARISON: CR XR PORTABLE CHEST AP from 07/30/2019 FINDINGS: MEDIASTINUM: Normal. HEART: Normal. PULMONARY VASCULATURE: Normal. LUNGS: Clear. PLEURAL SPACE: No pleural effusion or pneumothorax. BONE:Degenerative changes are seen in the shoulders bilaterally. OTHER FINDINGS:There is a left-sided central venous catheter. The tip of the catheter is in good pos ition near the junction of the superior vena cava and right atrium. There is a nasogastric tube. Th e tip is seen below the hemidiaphragms within the stomach. IMPRESSION: No acute pulmonary findings. DATA REPOSITORY: RADIATION DOSE DELIVERED:
--- NOTE | 2019-08-01 12:03 | DI.VRAD_ITS ---
PROCEDURE INFORMATION: Exam: XR Chest, 1 View Exam date and time: 08/01/2019 11:39 AM Age: 59 years old Clinical indication: Device placement; Patient HX: Ng tube placement and picc line. TECHNIQUE: Imaging protocol: XR of the chest Views: 1 view. COMPARISON: CR XR PORTABLE CHEST AP 07/30/2019 8:40 AM FINDINGS: Tubes, catheters and devices: A left peripherally inserted central venous catheter lies with its tip in the superior vena cava. Enteric tube is seen within the stomach Lungs: Unremarkable. No consolidation. Pleural space: Unremarkable. No pleural effusion. No pneumothorax. Heart/Mediastinum: Unremarkable. No cardiomegaly. Bones/joints: Degenerative changes in the glenohumeral joints IMPRESSION: No acute process Dictated and Authenticated by: Mike Whitlock MD. Ordering:LACEY Francois MD
[2019-08-01 12:52] LABS: Troponin I < 0.05 ng/mL (<0.06)
[2019-08-01 13:43] LABS: Vancomycin, Trough 27.5 ug/mL (10.0-20.0)
[2019-08-01] MEDS: Furosemide 40 MG/4 ML VIAL IVP (16:21)
[2019-08-01] MEDS: Hydrocortisone SOD SUC. 100 MG VIAL IVP (18:39)
[2019-08-01 19:42] LABS: Anion Gap 5.1 mmol/L (3-11); BUN 33 mg/dL (7-18); CO2 33.9 mmol/L (21.0-32.0); CREATININE 1.52 mg/dL (0.70-1.30); Calcium 8.5 mg/dL (8.5-10.1); Chloride 106 mmol/L (98-107); Estimated GFR 47.01 (mL/min/1.73m2); Glucose 166 mg/dL (74-106); Sodium 145 mmol/L (136-145)
[2019-08-01 20:01] LABS: Potassium 2.8 mmol/L (3.5-5.1)
[2019-08-01] MEDS: POTASSIUM CHLORIDE 10 MEQ/100 ML BAG 100 MEQ IVPB ×2 (20:22→23:51)
[2019-08-01] MEDS: VANCOMYCIN 1,000 MG in Normal Saline 250 ML 50 MG IV (20:55)
[2019-08-01] MEDS: POTASSIUM CHLORIDE 10 MEQ/100 ML BAG 50 MEQ IVPB (21:52)
[2019-08-01] MEDS: Insulin Glargine 300 UNITS/3 ML PEN 20 UNITS SC (22:36)
[2019-08-01] MEDS: Insulin Aspart 300 UNITS/3 ML PEN SC (23:51)
[2019-08-02] VITALS (55 sets, daily range): BP systolic 144–193; BP diastolic 56–84; PULSE 40–91; RESP 12–28; TEMP 36.1–36.8; O2SAT 91–100
--- NOTE | 2019-08-02 | DI.RAD_ITS ---
EXAM: 2D digital imaging was performed. CLINICAL HISTORY: SBO/do portable. COMPARISON: CR XR ABDOMEN FLAT PLATE from 07/30/[address] ABDOMEN PELVIS WO from 07/31/2019 TECHNIQUE: Supine views of the abdomen performed. FINDINGS: BOWEL GAS PATTERN: Mildly distended loops of bowel are seen in the central abdomen. This may represe nt a persistent small-bowel obstruction versus ileus. CALCIFICATIONS: No suspicious calcifications. OSSEOUS STRUCTURES: Normal for age. OTHER FINDINGS: There is an IVC filter in place. An enteric tube is present. The tip is seen in the region of the body of the stomach. Surgical clips are seen anterior to the sacrum. The lung bases are clear. IMPRESSION: 1. Persistent mildly dilated loops of bowel within the central abdomen. Grossly unchanged compared t o the CT scan from 07/31/2019. 2. No radiopaque calculi. DATA REPOSITORY: RADIATION DOSE DELIVERED:
[2019-08-02] MEDS: POTASSIUM CHLORIDE 10 MEQ/100 ML BAG 100 MEQ IVPB (01:02)
[2019-08-02] MEDS: Hydrocortisone SOD SUC. 100 MG VIAL IVP (02:26)
[2019-08-02] MEDS: Insulin Aspart 300 UNITS/3 ML PEN SC ×3 (06:16→19:00)
[2019-08-02] MEDS: ACETAMINOPHEN 1,000 MG/100 ML BTL 400 MG IVPB ×3 (06:16→21:17)
[2019-08-02 06:57] LABS: Abs Immature Grans 0.31 k/cumm (0.0-0.09); Absolute Basophil Count 0.01 k/cumm (0.0-0.2); Absolute Eosinophil Count 0.02 k/cumm (0.0-0.7); Absolute Lymphocyte Count 0.69 k/cumm (1.2-3.4); Absolute Monocyte Count 0.45 k/cumm (0.11-0.7); Absolute Neutrophil Count 8.41 k/cumm (1.2-6.7); Basophils % 0.1; Eosinophils % 0.2; HCT 29.6 % (40.0-50.0); HGB 8.7 g/dL (13.5-17.5); Immature Grans % 3.1 %; Magnesium 1.8 mg/dL (1.8-2.4); Mean Corp. HGB Concentration 29.4 g/dL (32.0-36.0); Mean Corpuscular Hemoglobin 21.9 pg (27.0-33.0); Mean Corpuscular Volume 74.4 fL (80-95); Mean Platelet Volume 9.7 fL (8.0-11.0); Monocytes % 4.6; Platelet Count 298 x1000/uL (130-400); RBC 3.98 m/cumm (4.50-6.00); RBC Distribution Width 18.6 % (11.8-14.1); White Blood Cell Count 9.89 k/cumm (4.4-10.8)
[2019-08-02 07:01] LABS: ALT 18 U/L (16-63); AST 17 U/L (15-37); Albumin 2.3 g/dL (3.4-5.0); Alkaline Phosphatase 88 U/L (46-116); Anion Gap 3.9 mmol/L (3-11); BUN 32 mg/dL (7-18); Bilirubin, Total 0.6 mg/dL (0.2-1.0); CO2 36.1 mmol/L (21.0-32.0); CREATININE 1.26 mg/dL (0.70-1.30); Calcium 8.3 mg/dL (8.5-10.1); Chloride 105 mmol/L (98-107); Estimated GFR 58.38 (mL/min/1.73m2); Glucose 294 mg/dL (74-106); PHOSPHORUS 2.2 mg/dL (2.6-4.7); Sodium 145 mmol/L (136-145); Total Protein 5.4 g/dL (6.4-8.2)
[2019-08-02 07:02] LABS: Potassium 2.7 mmol/L (3.5-5.1)
[2019-08-02 07:40] LABS: INR 1.1 (0.9-1.1); Prothrombin Time 10.9 sec (9.3-11.0)
[2019-08-02] MEDS: POTASSIUM CHLORIDE 20 MEQ/100 ML BAG 50 MEQ (07:40)
[2019-08-02] MEDS: Pantoprazole 40 MG VIAL IVP (07:59)
[2019-08-02] MEDS: Normal Saline Flush 10 ML SYR 20 ML IVP ×2 (08:06→21:07)
[2019-08-02] MEDS: FLUCONAZOLE 200 MG/100 ML BAG 100 MG IVPB (08:39)
--- NOTE | 2019-08-02 09:08 | DI.US_ITS ---
APPROVED REPORT EXAM: Comprehensive 2D, Doppler, and color-flow Echocardiogram Patient Location: In-Patient Room/Bed: [id number] Website Designer: Clari Penaloza RDCS (AE) Indications: MRSA Bacteremia. LBBB Other Information Study Quality: Fair Conclusion Left Ventricle : The left ventricle is normal size. The left ventricular systolic function is normal. The left ventricular ejection fraction is within the normal range. Moderate concentric left ventricu lar hypertrophy. There is normal LV segmental wall motion. The left ventricular diastolic function is normal. LVEF is 50-55%. Right Ventricle : Right ventricle is not well visualized. Right ventricular systolic function could n ot be assessed. The RVSP is 44.3 mmHg. Atria : The left atrium size is normal. The right atrium size is normal. Nose: There are no hemodynamically significant valvular lesions. There is no evidence of vegetation. Great Vessels : IVC is normal in size and collapses >50% with inspiration. Compared to echocardiogram from 05/04/2019 at [facility]: The patient is no longer in atrial fibrillation. There are no other significant changes. Wall motion Left Ventricle The left ventricle is normal size. The left ventricular systolic function is normal. The left ventric ular ejection fraction is within the normal range. Moderate concentric left ventricular hypertrophy. There is normal LV segmental wall motion. The left ventricular diastolic function is normal. There is no ventricular septal defect visualized. LVEF is 50-55%. Right Ventricle Right ventricle is not well visualized. Right ventricular systolic function could not be assessed. Th e RVSP is 44.3 mmHg. Atria The left atrium size is normal. The right atrium size is normal. The interatrial septum is intact wit h no evidence for an atrial septal defect. Aortic Valve Aortic valve is trileaflet. The Aortic valve is sclerotic. There is no aortic valvular stenosis. No a ortic regurgitation is present. Mitral Valve There is mitral annular calcification. No evidence of mitral valve stenosis. Mild mitral regurgitatio n. Tricuspid Valve The tricuspid valve is normal in structure. There is no tricuspid valve stenosis. Trace to mild tricu spid regurgitation. Pulmonic Valve Pulmonic valve is not well visualized. There is no pulmonic valvular stenosis. There is no pulmonic v alvular regurgitation. Great Vessels The aortic root is normal in size. Aortic arch is not well visualized. Ascending aorta is not well vi sualized. IVC is normal in size and collapses >50% with inspiration. Pericardium There is no pericardial effusion. 2D Dimensions IVSD d PLAX 1.33 cm M: 0.6-1.2 LV Vol A2C d MOD 237.3 mL LVPW d PLAX 1.33 cm M: 0.6 - 1.2 LV Vol A4C d MOD 185.3 mL LVID d PLAX 5.75 cm M: 4.2 - 5.8 LA vol/ BSA A2C s A-L 31.4 mL/m2 LVDs 4.25 cm M: 2.5 - 4.0 LA vol/ BSA A4C s A-L 42.1 mL/m2 Ao Root d 3.22 cm M: 3.1 - 3.7 LA Vol/ BSA Biplane s A-L 41.2 mL/m2 RA Area A4C 19.08 cm2 LA Area A4C s MOD 27.72 cm2 RA Vol/ BSA A4C s A-L 29.7 mL/m2 LA Area A2C s MOD 21.13 cm2 LV EF Teichholz 50.0 % LV EF A4C MOD 53.5 % LVEF (Blair's) 54.45 % M: 52 - 72 LV EF A2C MOD 53.3 % LV Volume 157.90 mL M: 62 - 150 LV EF Biplane MOD 54.4 % LV Volume Index 71.77 mL/m2 M: 34 - 74 SV 118.31 mL LV Vol Biplane MOD 217.3 mL SV Index 53.64 mL/m2 FS 25.75 % M-Mode TAPSE 3.45 cm (M/F) >1.7 LV Diastology MV E' medial 0.109 (>0.07 m/s) E/A Ratio 1.0 LV E/e MED 9.20 (<14) MV E Vmax 1.01 (0.4-1.3 m/s) MV E' lateral 0.117 (>0.1 m/s) MV A Vmax 1.05 (0.4-1.3 m/s) LV E/e LAT 8.55 (<14) MV E/A Ratio 0.94 MV E/E' medial 9.22 MV E/E' lateral 8.58 Aortic Valve LVOT Area 3.10 cm2 AoV Area Vmax 1.92 cm2 LVOT Vmax 1.18 m/s AoV Area/ BSA (Vmax) 0.87 cm2/m2 LVOT Mean Thomas. 0.79 m/s JEAN CARLOS Mean Thomas. 1.70 cm2 LVOT Peak Grad 5.6 mmHg JEAN CARLOS Mean Thomas. Index 0.77 cm2/m2 LVOT Mean Grad 2.8 mmHg LVOT VTI 0.306 m LVOT Diam s 1.95 cm AoV Vmax 1.91 m/s Velocity Ratio 0.61 AoV Mean Thomas. 1.45 m/s AoV Peak Grad 14.5 mmHg LVOT SV 94.70 mL AoV Mean Grad 9.0 mmHg AoV VTI 0.480 m AoV Area VTI 1.97 cm2 AoV Area/ BSA (VTI) 0.89 cm/m2 Mitral Valve MV DT 380 (160-240 msec) MV PHT 110 msec MV Area PHT 2.00 cm2 MV VTI 1.949 m MV Area VTI 0.49 (4.0-6.0 cm2) Pulmonary Valve PV Vmax 1.43 (0.5-1.5 m/s) RVOT Peak Gr. 2.07 mmHg PV Peak Grad 8.2 mmHg RVOT Mean Gr. 1.55 mmHg PV Mean Grad 5.0 mmHg RVOT VTI 0.166 m PV VTI 0.353 m RVOT Vmax 0.72 m/s Tricuspid Valve TR Peak Grad 41.3 mmHg TR Vmax 3.21 m/s RA Pressure 3.00 mmHg RVSP (TR) 44.3 mmHg
--- NOTE | 2019-08-02 09:41 | CMPROGNOTE_ITS ---
- If Service Date Differs Date of service: 08/02/19 Time of Service: 09:41 Care Management Progress Note S/O: Brendan was sitting up in bed when CM met with him. He was smiling and much more engaged than he was over the weekend. He stated that he was having a lot of pain, mostly on his bottom. CM discussed the fact that his pain medicine is ordered as needed and that he must let the nurse know when he needs it. His nurse was present and was aware of his discomfort but felt that it would likely resolve with repositioning. Brendan requested that CM call his sister again and update her. CM contacted Lian, reviewed Brendan's progress and formed her that he would likely have a palliative consult tomorrow. She requested that she be included if possible. A: Brendan is a 59 year old man admitted from the [facility] on 07/24/19 with UTI and a sacral ulcer P: Brendan will need longterm IV antibiotic therapy to treat the infected decubitus ulcer he presented with. Since the [facility] is unable to provide this service, he will likely need to transition to SB-1 status at some point. Ultimately, Brendan will return to the [facility] when treatment is complete. CM will continue to support Brendan and his discharge planning concerns and will update his sister as needed.
[2019-08-02] MEDS: POTASSIUM CHLORIDE 20 MEQ/100 ML BAG 50 MEQ IVPB ×5 (09:49→20:45)
[2019-08-02] MEDS: Normal Saline Flush 10 ML SYR IVP ×2 (09:59→17:23)
[2019-08-02] MEDS: Hydrocortisone SOD SUC. 100 MG VIAL 75 MG IVP ×2 (10:28→17:22)
--- NOTE | 2019-08-02 10:29 | W.PM.PROGNOT ---
Date of Service Date of service: 08/02/19 Time of Service: 10:29 Assessment and Plan Assessment and plan (1) SBO (small bowel obstruction): Status: Acute Assessment and plan: pt ws started on TPN b/c of his baseline poor nutrition. albumin is 1.6 pre albumin pd no signs of peritonitis or ischemia. pt is extremely poor surgical candidate. Will cont w/ NG decompression and TPN. cont to hold blood thinners in case pt requires emergency surgery. (2) Ulcer of left lower leg: Status: Chronic Qualifiers: Non-pressure ulcer stage: limited to breakdown of skin Qualified Code(s): L97.921 - Non-pressure chronic ulcer of unspecified part of left lower leg limited to breakdown of skin (3) History of DVT (deep vein thrombosis): Status: Acute Assessment and plan: at this point, the wound is not bleeding. He could go back on his blood thinners from a wound standpoint. However, in lt of the sbo- would hold in case there is an acute status change and pt requires emergency surgery. (4) ESBL (extended spectrum beta-lactamase) producing bacteria infection: Status: Acute (5) MRSA bacteremia: Status: Acute (6) Chronic iron deficiency anemia: Status: Acute (7) Open wound of left lower extremity without complication: Status: Acute Assessment and plan: almost healed (8) Hep C w/o coma, chronic: Status: Acute (9) Protein-calorie malnutrition, mild: Status: Acute (10) Decubitus ulcer, stage 4 with infection: Status: Acute Assessment and plan: ID rec 4 wks total of Vanco He has completed 10 days (aprox). wound relatively clean. There is no granulation tissue. May require further debridement. Most likely this will never heal and will be a matter of infection control and pain control. Pt is not a candidate for a flap. He is bed bound mostly. albumin is 1.6/A1c is 9/chronic steroids/chronic blood thinners for DVT & afib. path was neg for malig. yeast on skin is improved. I did d/w stephen. want to stop diflucan b/c of cardiac irritability. cont w/ topical nystatin. wound vac changed today. 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: with regional intermodal truck driver use Diabetes mellitus type: type 2 Qualified Code(s): E11.42 - Type 2 diabetes mellitus with diabetic polyneuropathy; Z79.4 - USP (current) use of insulin (15) Pulmonary hypertension: Status: Chronic (16) Chronic cholecystitis: Status: Chronic (17) Ambulatory dysfunction: Status: Chronic (18) Poorly controlled type 2 diabetes mellitus with circulatory disorder: Status: Chronic (19) Adrenal insufficiency: Status: Chronic (20) CKD (chronic kidney disease): Status: Chronic Qualifiers: Chronic kidney disease stage: unspecified stage Qualified Code(s): N18.9 - Chronic kidney disease, unspecified (21) Inability to get out of bed: Status: Chronic (22) Poor self care: Status: Chronic (23) Chronic bipolar disorder: Status: Chronic Subjective Subjective Interval history since last seen: pt is awake and alert and back to nl baseline mentation. I think his episode Friday was all do to dehydration. He has had no outpt from ostomy. no stool or gas. he has had 450 out of NGT since 6:30 am. (11;30am at time of query). pt denies any pain. would like water and ice. TPN started yesterday. wound cult 07/24- MRSA repeat blood cults are neg from 07/29 urine >100,00 edda from 07/29 no C. diff in stool from 07/29 repeat xray today shows loops of bowel are smaller. but non gas in rectum. still appear dilated in LUQ. abdom is flat and minimal pain for pt in supra-pubic region. Exam GI Other: minimal pain in supra-pubic position. ostomy pink and healthy. minimal output BS are high pitched still. no distention no peritonitis. site is c/d/i. Skin Other: Wound location Size: Width 9 cm Length 11 cm Depth 3 cm Undermining: yes Wound Base: granular: noone present. Slough: 30%. needs to be debrided. if not better- consider Surrounding Tissue: the maceration is improved. still present. cont nystatin poweder and IV diflucan Pain:moderate Signs of infection: resolving. no signf os healing. Abx: vanco for wound diflucan meropenem Extrem Other: LLE ant negro wound- only has small 1x1cm opening. no infection and actually healing nicely left foot. wound over head of #2 metatarsal. hand dry cleaner .5x.5cm Objective Objective Clinical Data: Abnormal lab results 08/01/19 08/01/19 08/02/19 Range/Units 12:55 19:26 06:05 RBC 3.98 L (4.50-6.00) m/cumm Hgb 8.7 L (13.5-17.5) g/dL Hct 29.6 L (40.0-50.0) % MCV 74.4 L (80-95) fL MCH 21.9 L (27.0-33.0) pg MCHC 29.4 L (32.0-36.0) g/dL RDW 18.6 H (11.8-14.1) % Absolute Neutrophils 8.41 H (1.2-6.7) k/cumm Absolute Lymphocytes 0.69 L (1.2-3.4) k/cumm Potassium 2.8 L* (3.5-5.1) mmol/L Carbon Dioxide 33.9 H (21.0-32.0) mmol/L BUN 33 H (7-18) mg/dL Creatinine 1.52 H (0.70-1.30) mg/dL Glucose 166 H (74-106) mg/dL Calcium (8.5-10.1) mg/dL Phosphorus (2.6-4.7) mg/dL Total Protein (6.4-8.2) g/dL Albumin (3.4-5.0) g/dL Vancomycin Trough 27.5 H* (10.0-20.0) ug/mL 08/02/19 Range/Units 06:05 RBC (4.50-6.00) m/cumm Hgb (13.5-17.5) g/dL Hct (40.0-50.0) % MCV (80-95) fL MCH (27.0-33.0) pg MCHC (32.0-36.0) g/dL RDW (11.8-14.1) % Absolute Neutrophils (1.2-6.7) k/cumm Absolute Lymphocytes (1.2-3.4) k/cumm Potassium 2.7 L* (3.5-5.1) mmol/L Carbon Dioxide 36.1 H (21.0-32.0) mmol/L BUN 32 H (7-18) mg/dL Creatinine (0.70-1.30) mg/dL Glucose 294 H D (74-106) mg/dL Calcium 8.3 L (8.5-10.1) mg/dL Phosphorus 2.2 L (2.6-4.7) mg/dL Total Protein 5.4 L (6.4-8.2) g/dL Albumin 2.3 L (3.4-5.0) g/dL Vancomycin Trough (10.0-20.0) ug/mL Vital Signs Temperature 36.1 C L 08/02/19 10:28 Temperature Source Temporal Artery Scan 08/02/19 08:56 Pulse 50 L 08/02/19 08:56 Pulse Rhythm Regular 07/30/19 07:30 Pulse 43 L 08/02/19 06:01 Respiratory Rate 13 08/02/19 08:56 Respiratory Effort Non-Labored 08/02/19 04:30 Respiratory Depth Normal 08/02/19 04:30 Respiratory Pattern Normal 08/02/19 04:30 Blood Pressure 178/57 H 08/02/19 08:56 Blood Pressure Mean 85 08/02/19 06:01 Blood Pressure Position Supine 08/02/19 04:30 Pulse Oximetry 99 08/02/19 08:56 Oxygen Delivery Method Bi-pap 08/02/19 04:30 Oxygen Flow Rate 1 08/02/19 04:30 Pain Level 6 08/02/19 10:28 Comment 08/02/19 08:56 Intake & Output 08/01/19 08/01/19 08/02/19 11:59 23:59 11:59 Intake Total 575 / 4477.590 4831.113 / 1875.113 550 / 550 Output Total 4025 / 7150 3125 / 7150 3625 / 3625 Balance -3450 / -5274.887 -1824.887 / -5274.887 -3075 / -3075 Intake: IV 575 / 1131.099 6146.113 / 1875.113 550 / 550 Output: Gastric Drainage 1475 / 1775 300 / 1775 450 / 450 Right Nare 1475 / 1775 300 / 1775 450 / 450 Urine 2550 / 5375 2825 / 5375 3175 / 3175 Other: Urine Color Pale Pale Yellow Yellow Yellow Urine Appearance Clear Clear Clear Urine Odor None Comment Downing draining clear yellow urine Downing in place draining clear yellow urine Downing in place draining large amounts of clear urine. Gastric Occult Blood Right Nare Positive Negative Voiding Methods Indwelling Catheter Laboratory Results WBC 9.89 k/cumm (4.4-10.8) 08/02/19 06:05 RBC 3.98 m/cumm (4.50-6.00) L 08/02/19 06:05 Hgb 8.7 g/dL (13.5-17.5) L 08/02/19 06:05 Hct 29.6 % (40.0-50.0) L 08/02/19 06:05 MCV 74.4 fL (80-95) L 08/02/19 06:05 MCH 21.9 pg (27.0-33.0) L 08/02/19 06:05 MCHC 29.4 g/dL (32.0-36.0) L 08/02/19 06:05 RDW 18.6 % (11.8-14.1) H 08/02/19 06:05 Plt Count 298 x1000/uL (130-400) 08/02/19 06:05 MPV 9.7 fL (8.0-11.0) 08/02/19 06:05 Immature Gran % 3.1 % 08/02/19 06:05 Neutrophils % 85.0 08/02/19 06:05 Band Neutrophils % 2.0 % 07/30/19 06:15 Lymphocytes % 7.0 08/02/19 06:05 Monocytes % 4.6 08/02/19 06:05 Eosinophils % 0.2 08/02/19 06:05 Basophils % 0.1 08/02/19 06:05 Metamyelocytes % 3.0 % 08/01/19 06:40 Myelocytes % 4.0 % 08/01/19 06:40 Absolute Neutrophils 8.41 k/cumm (1.2-6.7) H 08/02/19 06:05 Absolute Lymphocytes 0.69 k/cumm (1.2-3.4) L 08/02/19 06:05 Absolute Monocytes 0.45 k/cumm (0.11-0.7) 08/02/19 06:05 Absolute Eosinophils 0.02 k/cumm (0.0-0.7) 08/02/19 06:05 Absolute Basophils 0.01 k/cumm (0.0-0.2) 08/02/19 06:05 Nucleated RBCs 1 /100WBC 08/01/19 06:40 Differential Comment Manual differential 08/01/19 06:40 RBC Morphology See below 08/01/19 06:40 Polychromasia Present 08/01/19 06:40 Hypochromasia 2+ 08/01/19 06:40 Poikilocytosis 2+ 08/01/19 06:40 Basophilic Stippling Present 07/29/19 06:45 Anisocytosis 2+ 07/29/19 06:45 Microcytosis 2+ 08/01/19 06:40 Ovalocytes 2+ 07/29/19 06:45 ESR 55 mm/hr (1-20) H 07/24/19 18:10 PT 10.9 sec (9.3-11.0) 08/02/19 07:20 INR 1.1 (0.9-1.1) 08/02/19 07:20 APTT 26.4 sec (21.0-31.4) 07/24/19 18:10 ABG Sample Site Left radial 07/30/19 08:30 ABG pH 7.32 (7.35-7.45) L 07/30/19 08:30 ABG pCO2 53 mmHg (34-47) H 07/30/19 08:30 ABG pO2 117 mmHg (83-108) H 07/30/19 08:30 ABG HCO3 27 mmol/L (22-28) 07/30/19 08:30 ABG Total CO2 26 mmol/L (22-29) 07/30/19 08:30 ABG O2 Saturation 99 % (94-98) H 07/30/19 08:30 ABG Base Excess 0.7 mmol/L (-3-3) 07/30/19 08:30 Oxygen Liter Flow 2 L 07/30/19 08:30 Sodium 145 mmol/L (136-145) 08/02/19 06:05 Potassium 2.7 mmol/L (3.5-5.1) L* 08/02/19 06:05 Chloride 105 mmol/L (98-107) 08/02/19 06:05 Carbon Dioxide 36.1 mmol/L (21.0-32.0) H 08/02/19 06:05 Anion Gap 3.9 mmol/L (3-11) 08/02/19 06:05 BUN 32 mg/dL (7-18) H 08/02/19 06:05 Creatinine 1.26 mg/dL (0.70-1.30) 08/02/19 06:05 Estimated GFR/1.73 m2 58.38 (mL/min/1.73m2) 08/02/19 06:05 Glucose 294 mg/dL (74-106) H D 08/02/19 06:05 Lactate 0.7 mmol/L (0.6-1.4) 07/30/19 15:40 Calcium 8.3 mg/dL (8.5-10.1) L 08/02/19 06:05 Phosphorus 2.2 mg/dL (2.6-4.7) L 08/02/19 06:05 Magnesium 1.8 mg/dL (1.8-2.4) 08/02/19 06:05 Iron 42 ug/dL (65-175) L 07/29/19 06:45 TIBC 157 ug/dL (250-450) L 07/29/19 06:45 Transferrin % Sat 27 % (20-55) 07/29/19 06:45 Ferritin 660 ng/mL (26-388) H 07/29/19 06:45 Total Bilirubin 0.6 mg/dL (0.2-1.0) 08/02/19 06:05 AST 17 U/L (15-37) 08/02/19 06:05 ALT 18 U/L (16-63) 08/02/19 06:05 Alkaline Phosphatase 88 U/L (46-116) 08/02/19 06:05 Troponin I < 0.05 ng/mL (<0.06) 08/01/19 12:25 C-Reactive Protein 4.84 mg/dL (0.0-0.3) H 07/26/19 06:45 Total Protein 5.4 g/dL (6.4-8.2) L 08/02/19 06:05 Albumin 2.3 g/dL (3.4-5.0) L 08/02/19 06:05 Tumor Marker AFP <2.5 ng/mL (<8.1) 07/27/19 06:35 Carcinoembryonic Ag 1.5 ng/ml (See Note) 07/26/19 06:45 Procalcitonin 0.5 ng/mL 07/30/19 09:40 TSH 0.28 uIU/mL (0.36-3.74) L 07/24/19 18:10 Free T4 1.20 ng/dL (0.76-1.46) 07/24/19 18:10 Urine Color Yellow (Yellow) 07/24/19 18:40 Urine Clarity Cloudy (Clear) 07/24/19 18:40 Urine pH 6.0 (5-8) 07/24/19 18:40 Ur Specific Crowley 1.010 (1.005-1.025) 07/24/19 18:40 Urine Protein 30 mg/dL (Negative) H 07/24/19 18:40 Urine Ketones Negative mg/dL (Negative) 07/24/19 18:40 Urine Blood Moderate (Negative) H 07/24/19 18:40 Urine Nitrite Positive (Negative) H 07/24/19 18:40 Urine Bilirubin Negative (Negative) 07/24/19 18:40 Urine Urobilinogen 0.2 EU/dL (Up TO 0.2) 07/24/19 18:40 Ur Leukocyte Esterase Moderate (Negative) H 07/24/19 18:40 Urine RBC Not Applicable 07/24/19 18:40 Urine WBC >50 HPF (0-5) H 07/24/19 18:40 Ur Epithelial Cells Not Applicable 07/24/19 18:40 Urine Crystals Not Applicable 07/24/19 18:40 Urine Bacteria HPF (Negative) 07/24/19 18:40 Urine Mucus Not Applicable 07/24/19 18:40 Ur Culture Indicated? Yes 07/24/19 18:40 Urine Glucose >=1000 mg/dL (Negative) H 07/24/19 18:40 Vancomycin Trough 27.5 ug/mL (10.0-20.0) H* 08/01/19 12:55 c-ANCA Negative (Negative) 06/02/20 06:35 p-ANCA Negative (Negative) 07/27/19 06:35 COVID-19 PCR Negative (Negative) 07/24/19 21:45 Nasopharyn COVID-19 PCR Not Applicable 07/24/19 21:45 Ref Test Perform Site Counts include 234 beds at the [facility] lab 07/24/19 21:45 Patient ABO/Rh AB Negative 07/25/19 10:55 Antibody Screen Negative 07/25/19 10:55
[2019-08-02] MEDS: Refresh PLUS Eye Drops 0.4ml OU (10:36)
[2019-08-02] MEDS: MEROPENEM 1 GM in Normal Saline 100 ML IVPB ×2 (10:36→22:12)
--- NOTE | 2019-08-02 11:41 | CCONE_ITS ---
Date of service: 08/02/19 Time of Service: 11:41 Assessment and Plan Assessment and plan (1) SBO (small bowel obstruction): Status: Acute (2) MRSA bacteremia: Status: Acute (3) UTI (urinary tract infection): Status: Acute Qualifiers: Hematuria presence: without hematuria Urinary tract infection type: site unspecified Qualified Code(s): N39.0 - Urinary tract infection, site not specified (4) Bradycardia: Status: Chronic Assessment and plan: 1. Junctional escape rhythm. The patient has EKG from yesterday which shows a wide-complex rhythm with no discernible P waves at a rate of 60. This looks to be a junctional complex. The majority of his telemetry shows a sinus rhythm. Given his profound metabolic disturbances I suspect that this is likely the cause of this abnormal rhythm. Of note, he has been mostly hypokalemic and we tend to see this rhythm and hyperkalemia. I think it is reasonable to hold all AV hamzah blocking agents and continue to treat him aggressively with electrolyte repletion. These episodes tend to occur while the patient is sleeping and while I do think increased vagal tone could be playing a role I am much more concerned about his electrolyte disturbances. I agree with using his CPAP as much as possible. I do not think further ischemic evaluation is necessary at this time as the patient had a normal MPI about 6 months ago. The patient has no symptoms suggestive of ongoing ischemia even in this severe acute illness. Agree with previously ordered echocardiogram. Given the patient's ongoing multiple medical problems I do think it would be worth considering a transfer to a higher level of care. (5) Junctional (hamzah) bradycardia: Status: Acute History of Present Illness History of Present Illness Chief Complaint: arrhythmia Narrative: Mr. Corley is a very unfortunate 59-year-old male who lives in long- term rehabilitation and was recently with a recent hospital admission for sepsis thought to be due to urinary tract infection. He was admitted 9 days ago now with worsening sacral ulceration and concern for abscess. He has chronic adrenal insufficiency. He is now currently being treated again for urinary t ract infection and was found to have symptoms suggestive of a small bowel obstruction as well as MRSA bacteremia. Surgery has been consulted and the patient now has an NG tube in place. As part of this treatment he has had significant problems with hypokalemia and concern wide-complex rhythm on te lemetry. Cardiology has been consulted due to this potential arrhythmia. Review of Systems All systems reviewed & are unremarkable except as noted in HPI and below [facility] Medical History (Updated 08/02/19 @ 12:07 by Chance Anglees MD) Acromegaly (Chronic) Acute on chronic kidney failure (Resolved) Adrenal insufficiency (Chronic) Ambulatory dysfunction (Chronic) Anemia (Chronic Unknown) Atrial flutter, paroxysmal (Chronic) Back pain (Chronic 06/21/13) CAD (coronary artery disease) (Chronic) Cardiopulmonary arrest with successful resuscitation (Resolved) Chronic anxiety (Chronic) Chronic bipolar disorder (Chronic) a. With history of psychosis. Chronic cholecystitis (Chronic) Chronic insomnia (Chronic) Chronic iron deficiency anemia (Acute) Chronic pain (Chronic) On both Methadone and Fentanyl as well as Ultram and Naproxen. CKD (chronic kidney disease) (Chronic) Decubitus ulcer of sacral region, stage 4 (Acute) Decubitus ulcer, stage 4 with infection (Acute) Diabetes mellitus (Chronic) Diabetic ulcer of toe associated with diabetes mellitus due to underlying condition, with bone involvement without evidence of necrosis (Inactive) 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 (Resolved) DVT (deep venous thrombosis) (Chronic) Dg April 2019. Has IVC filter placed 04/2019 Dyslipidemia (Chronic) Endocarditis due to Staphylococcus (Resolved) Hemorrhagic cystitis (Chronic) Hep C w/o coma, chronic (Acute) History of DVT (deep vein thrombosis) (Acute) Hyperkalemia (Resolved) Hypomagnesemia (Resolved) Hypothyroidism (Chronic) Hypoventilation associated with obesity syndrome (Chronic) Ileostomy in place (Acute) Impaired mobility and ADLs (Chronic) Inability to get out of bed (Chronic 06/21/13) Lactic acidosis (Resolved) MRSA bacteremia (Acute) Obesity (Chronic) a. Obesity though he has had significant weight loss since last seen. Old non-ST elevation myocardial infarction (NSTEMI) (Acute) March 2019 Open wound of left lower extremity without complication (Acute) secondary to trauma and from anticoagulation 04/2019 Osteoarthritis of both knees (Chronic) Severe. a. [id number] bilateral knees. 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 2 diabetes mellitus (Resolved) Palliative care encounter (Chronic) DObbertin PEA (Pulseless electrical activity) (Acute) episode of bradycardic arrest/PEA. thought to be secondary to gram neg sepsis from acute sonny. 03/2019 Pedal edema (Chronic) Poor self care (Chronic 06/21/13) Poorly controlled type 2 diabetes mellitus with circulatory disorder (Chronic) Presence of IVC filter (Acute) Protein-calorie malnutrition, mild (Acute) Pulmonary hypertension (Chronic) Rheumatoid arthritis (Chronic) Sepsis (Resolved) Septic arthritis of elbow, right (Inactive) Toxic metabolic encephalopathy (Resolved) Ulcer of left lower leg (Chronic) Ulcerative colitis (Chronic) UTI (urinary tract infection) (Resolved) UTI (urinary tract infection) due to Enterococcus (Resolved) Surgical History (Updated 07/25/19 @ 13:32 by Lela Webb DO) Arthroplasty of knee (Resolved 03/18/12) irrigation and lavage right Fracture, Open Treatment (Resolved) 06/06/17[place] [place] S/P ORIF RIGHT DISTAL HUMERUS FRACTURE History of insertion of T-tube into biliary tract (Chronic) S/P colectomy (Chronic) S/P proctocolectomy (Acute) Social History Smoking/Tobacco Use Status: Former Tobacco Use Alcohol Intake: former Drug use: Rarely Substance use type: marijuana Housing: care home Do you feel safe at home: Yes Do you feel safe in your relationship?: Yes Additional [facility] Exam Const General: comfortable and no acute distress [facility] Head: normocephalic and atraumatic Eyes General: appearance normal, both eyes and all related structures Resp Effort & Inspection: normal respiratory effort Auscultation: clear to auscultation bilaterally Cardio Jugular venous pressure: no JVD Palpation: normal PMI Rate: regular rate Rhythm: regular rhythm Heart Sounds: S1 normal and S2 normal (No Murmurs, Rubs or Gallops) GI Palpation: soft Skin General skin exam: no rashes or lesions noted Extrem General: normal to inspection Psych Appearance: grossly normal Results Last Vital Signs Temp 36.1 C L 08/02/19 10:28 Pulse 56 L 08/02/19 10:33 Resp 16 08/02/19 10:33 BP 193/67 H 08/02/19 10:33 Pulse Ox 100 08/02/19 11:25 Labs Result diagrams: 08/02/19 06:05 08/02/19 06:05 Labs: Laboratory Results - last 24 hr 08/01/19 08/01/19 08/01/19 12:25 12:55 18:00 WBC RBC Hgb Hct MCV MCH MCHC RDW Plt Count MPV Immature Gran % Neutrophils % Lymphocytes % Monocytes % Eosinophils % Basophils % Absolute Neutrophils Absolute Lymphocytes Absolute Monocytes Absolute Eosinophils Absolute Basophils PT INR Sodium Cancelled Potassium Cancelled Chloride Cancelled Carbon Dioxide Cancelled Anion Gap Cancelled BUN Cancelled Creatinine Cancelled Estimated GFR/1.73 m2 Cancelled Glucose Cancelled Calcium Cancelled Phosphorus Magnesium Total Bilirubin AST ALT Alkaline Phosphatase Troponin I < 0.05 Total Protein Albumin Vancomycin Trough 27.5 H* 08/01/19 08/02/19 08/02/19 19:26 06:05 06:05 WBC 9.89 RBC 3.98 L Hgb 8.7 L Hct 29.6 L MCV 74.4 L MCH 21.9 L MCHC 29.4 L RDW 18.6 H Plt Count 298 MPV 9.7 Immature Gran % 3.1 Neutrophils % 85.0 Lymphocytes % 7.0 Monocytes % 4.6 Eosinophils % 0.2 Basophils % 0.1 Absolute Neutrophils 8.41 H Absolute Lymphocytes 0.69 L Absolute Monocytes 0.45 Absolute Eosinophils 0.02 Absolute Basophils 0.01 PT INR Sodium 145 Potassium 2.8 L* Chloride 106 Carbon Dioxide 33.9 H Anion Gap 5.1 BUN 33 H Creatinine 1.52 H Estimated GFR/1.73 m2 47.01 Glucose 166 H Calcium 8.5 Phosphorus Magnesium 1.8 Total Bilirubin AST ALT Alkaline Phosphatase Troponin I Total Protein Albumin Vancomycin Trough 08/02/19 08/02/19 08/02/19 06:05 06:05 07:20 WBC RBC Hgb Hct MCV MCH MCHC RDW Plt Count MPV Immature Gran % Neutrophils % Lymphocytes % Monocytes % Eosinophils % Basophils % Absolute Neutrophils Absolute Lymphocytes Absolute Monocytes Absolute Eosinophils Absolute Basophils PT Cancelled 10.9 INR Cancelled 1.1 Sodium 145 Potassium 2.7 L* Chloride 105 Carbon Dioxide 36.1 H Anion Gap 3.9 BUN 32 H Creatinine 1.26 Estimated GFR/1.73 m2 58.38 Glucose 294 H D Calcium 8.3 L Phosphorus 2.2 L Magnesium Total Bilirubin 0.6 AST 17 ALT 18 Alkaline Phosphatase 88 Troponin I Total Protein 5.4 L Albumin 2.3 L Vancomycin Trough
--- NOTE | 2019-08-02 11:44 | W.PM.PROGNOT ---
Date of Service Date of service: 08/02/19 Time of Service: 11:44 Assessment and Plan Assessment and plan (1) SBO (small bowel obstruction): Status: Acute Assessment and plan: S/p NGT. Awaiting read on abdominal XR today. NPO. Per surgery, the patient is not a surgical candidate. Dr Webb also feels that this SBO could be due to a Crohn's flare/attempt at fistula formation. Continue NGT and non-operative management. Consult palliative care. (2) Ventricular escape rhythm: Status: Acute Assessment and plan: This appears to be associated with sleep when preceded by bradycardia. Could also be due to hypokalemia. Beta blockade may have lead to the bradycardia preceding the ventricular rhythm. We are awaiting formal cardiology recommendations. For now, d/c bb (has not gotten them in >24 hrs). Replete potassium. Continue trilogy when asleepl. Patient is s/p [place] [place] (3) Hypokalemia: Status: Acute Assessment and plan: Replete, monitor. (4) MRSA bacteremia: Status: Acute Assessment and plan: On blood cultures 07/24/2019, cleared on blood cultures on 07/27/2019. Likely source is the decubitous wound (present on admission). Pathology is pending on the bx - ? related to Crohn's. Continue vancomycin x 4 weeks since negative blood cultures. Expected end date is 08/23/2019. Await echo result. (5) Decubitus ulcer, stage 4 with infection: Status: Acute Assessment and plan: s/p surgical debridement on and 07/26/2019. Surgical wound cx with MRSA. As above - ?due to Crohn's. Await bx results. Continue wound vac. Continue vancomycin. Continue MVI, vitamin C, zinc supplementation per nutrition. Offload/mobilize as able. (6) ESBL (extended spectrum beta-lactamase) producing bacteria infection: Status: Acute Assessment and plan: UTI Due to ESBL E. Coli, present on admission, now s/p ruiz. Should be sensitive to meropenem (day 7). Check UA. If negative, we may choose to keep meropenem on for the intraabdominal process - would discuss with general surgery. (7) Vomiting: Status: Resolved Assessment and plan: Due to SBO. Resolved with NGT in place. (8) Adrenal insufficiency: Status: Chronic Assessment and plan: Solucortef was increased to 100 mg IV Q8 hrs yesterday - now, his sodium has corrected and BG's are starting to look high. Ok to start to slowly taper - made 75 mg IV Q8 hours. (9) Acute kidney injury superimposed on chronic kidney disease: Status: Acute Assessment and plan: Improved post insertion of ruiz catheter. He actually has the best creatinine today than he has had since 2010, and this is despite diuresis. I think this has to do with his having spent the whole day on trilogy yesterday. I do not feel he is fluid overloaded at this time. We are holding lasix today as he is so hypokalemic and we feel he is not fluid overloaded. (10) Hyperkalemia: Status: Resolved Assessment and plan: Resolved with treatment of JESUS and adrenal crisis. (11) CAD (coronary artery disease): Status: Chronic Assessment and plan: Neg MPI in 12/2018. However, periodic appearance of LBBB is concerning. Trend troponins, continue to monitor on tele. Await cardiology consult. (12) Atrial flutter, paroxysmal: Status: Chronic Assessment and plan: In NSR at this time. Continue to monitor on a monitor tech. (13) Diabetes mellitus: Status: Chronic Assessment and plan: Tapering steroids today. Continue basal bolus insulin, adjusting based on steroid dose. 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 Anticoagulation on hold due to bleeding decubitus wound. (15) Bradycardia: Status: Chronic Assessment and plan: Monitor on monitor tech. D/c beta blockers. (16) CHF (congestive heart failure): Status: Chronic Assessment and plan: Currently near euvolemic. Holding lasix for today due to hypokalemia which has been difficult to replete while on lasix. (17) Hypoventilation associated with obesity syndrome: Status: Chronic Assessment and plan: I think it is impressive how well the patient tolerated trilogy over the last 24 hours - and how much it helped him diurese and improve his renal perfusion. Continue to encourage trilogy when asleep. (18) Hypertension: Status: Chronic Assessment and plan: Continue to hold amlodipine, clonidine and furosemide. Metoprolol d/c'ed until bradycardia resolves. Qualifiers: Hypertension type: essential hypertension Qualified Code(s): I10 - Essential (primary) hypertension (19) Ulcer of left lower leg: Status: Chronic Assessment and plan: Continue wound care with Mepilex. Qualifiers: Non-pressure ulcer stage: limited to breakdown of skin Qualified Code(s): L97.921 - Non-pressure chronic ulcer of unspecified part of left lower leg limited to breakdown of skin (20) DVT prophylaxis: Status: Acute Assessment and plan: S/p IVC filter. Chemical treatment/ppx is contraindicated due to the bleeding decubitous wound. (21) Discharge planning issues: Status: Acute Assessment and plan: Full code. Continues to require hospitalization. Keep in ICU. Total Critical Care Time 45 minutes. Subjective Subjective Interval history since last seen: Mr Corley continues to have very minimal output in his ostomy. He still has an NGT - billious contents, >1000 cc overnight. He did have 2 other episodes of the wide complex ventricular rhythm - both while asleep and wearing trilogy. He is awaiting a cardiology consultation today. He denies dizziness, chest pain, shortness of breath, nausea. Conitnues to report abdominal pain around ostomy. Awake and off trilogy this morning when I came to see him. Exam Narrative Exam Narrative: General: Pleasant obese male, awake, looks to be at his baseline, A&Ox3 HEENT: EOMI, MMM, NGT in Heart: RRR, no m/r/g Lungs: CTAB anteriorly Abdomen: soft, hypoactive bowel sounds throughout, tender around ostomy site Extremities: +1 BLE edema, unchanged, B chronic venous stasis changes; LLE tibial surface dressed - c/d/, L foot wound - about 1 cm in diameter, does not appear infected, c/d/i.i Objective Objective Clinical Data: Abnormal lab results 08/01/19 08/01/19 08/02/19 Range/Units 12:55 19:26 06:05 RBC 3.98 L (4.50-6.00) m/cumm Hgb 8.7 L (13.5-17.5) g/dL Hct 29.6 L (40.0-50.0) % MCV 74.4 L (80-95) fL MCH 21.9 L (27.0-33.0) pg MCHC 29.4 L (32.0-36.0) g/dL RDW 18.6 H (11.8-14.1) % Absolute Neutrophils 8.41 H (1.2-6.7) k/cumm Absolute Lymphocytes 0.69 L (1.2-3.4) k/cumm Potassium 2.8 L* (3.5-5.1) mmol/L Carbon Dioxide 33.9 H (21.0-32.0) mmol/L BUN 33 H (7-18) mg/dL Creatinine 1.52 H (0.70-1.30) mg/dL Glucose 166 H (74-106) mg/dL Calcium (8.5-10.1) mg/dL Phosphorus (2.6-4.7) mg/dL Total Protein (6.4-8.2) g/dL Albumin (3.4-5.0) g/dL Vancomycin Trough 27.5 H* (10.0-20.0) ug/mL 08/02/19 Range/Units 06:05 RBC (4.50-6.00) m/cumm Hgb (13.5-17.5) g/dL Hct (40.0-50.0) % MCV (80-95) fL MCH (27.0-33.0) pg MCHC (32.0-36.0) g/dL RDW (11.8-14.1) % Absolute Neutrophils (1.2-6.7) k/cumm Absolute Lymphocytes (1.2-3.4) k/cumm Potassium 2.7 L* (3.5-5.1) mmol/L Carbon Dioxide 36.1 H (21.0-32.0) mmol/L BUN 32 H (7-18) mg/dL Creatinine (0.70-1.30) mg/dL Glucose 294 H D (74-106) mg/dL Calcium 8.3 L (8.5-10.1) mg/dL Phosphorus 2.2 L (2.6-4.7) mg/dL Total Protein 5.4 L (6.4-8.2) g/dL Albumin 2.3 L (3.4-5.0) g/dL Vancomycin Trough (10.0-20.0) ug/mL Vital Signs Temperature 36.1 C L 08/02/19 10:28 Temperature Source Temporal Artery Scan 08/02/19 08:56 Pulse 56 L 08/02/19 10:33 Pulse Rhythm Regular 07/30/19 07:30 Pulse 58 L 08/02/19 10:33 Respiratory Rate 16 08/02/19 10:33 Respiratory Effort Non-Labored 08/02/19 04:30 Respiratory Depth Normal 08/02/19 04:30 Respiratory Pattern Normal 08/02/19 04:30 Blood Pressure 193/67 H 08/02/19 10:33 Blood Pressure Mean 87 08/02/19 10:33 Blood Pressure Position Supine 08/02/19 04:30 Pulse Oximetry 100 08/02/19 11:25 Oxygen Delivery Method Nasal Cannula 08/02/19 11:25 Oxygen Flow Rate 1 08/02/19 11:30 Pain Level 6 08/02/19 10:35 Comment 08/02/19 08:56 Intake & Output 08/01/19 08/01/19 08/02/19 11:59 23:59 11:59 Intake Total 575 / 4330.139 4506.113 / 1875.113 560 / 560 Output Total 4025 / 7150 3125 / 7150 3625 / 3625 Balance -3450 / -5274.887 -1824.887 / -5274.887 -3065 / -3065 Intake: IV 575 / 9428.239 5391.113 / 1875.113 560 / 560 Output: Gastric Drainage 1475 / 1775 300 / 1775 450 / 450 Right Nare 1475 / 1775 300 / 1775 450 / 450 Urine 2550 / 5375 2825 / 5375 3175 / 3175 Other: Urine Color Pale Pale Yellow Yellow Yellow Urine Appearance Clear Clear Clear Urine Odor None Comment Ruiz draining clear yellow urine Ruiz in place draining clear yellow urine Ruiz in place draining large amounts of clear urine. Gastric Occult Blood Right Nare Positive Negative Negative Voiding Methods Indwelling Catheter Laboratory Results WBC 9.89 k/cumm (4.4-10.8) 08/02/19 06:05 RBC 3.98 m/cumm (4.50-6.00) L 08/02/19 06:05 Hgb 8.7 g/dL (13.5-17.5) L 08/02/19 06:05 Hct 29.6 % (40.0-50.0) L 08/02/19 06:05 MCV 74.4 fL (80-95) L 08/02/19 06:05 MCH 21.9 pg (27.0-33.0) L 08/02/19 06:05 MCHC 29.4 g/dL (32.0-36.0) L 08/02/19 06:05 RDW 18.6 % (11.8-14.1) H 08/02/19 06:05 Plt Count 298 x1000/uL (130-400) 08/02/19 06:05 MPV 9.7 fL (8.0-11.0) 08/02/19 06:05 Immature Gran % 3.1 % 08/02/19 06:05 Neutrophils % 85.0 08/02/19 06:05 Band Neutrophils % 2.0 % 07/30/19 06:15 Lymphocytes % 7.0 08/02/19 06:05 Monocytes % 4.6 08/02/19 06:05 Eosinophils % 0.2 08/02/19 06:05 Basophils % 0.1 08/02/19 06:05 Metamyelocytes % 3.0 % 08/01/19 06:40 Myelocytes % 4.0 % 08/01/19 06:40 Absolute Neutrophils 8.41 k/cumm (1.2-6.7) H 08/02/19 06:05 Absolute Lymphocytes 0.69 k/cumm (1.2-3.4) L 08/02/19 06:05 Absolute Monocytes 0.45 k/cumm (0.11-0.7) 08/02/19 06:05 Absolute Eosinophils 0.02 k/cumm (0.0-0.7) 08/02/19 06:05 Absolute Basophils 0.01 k/cumm (0.0-0.2) 08/02/19 06:05 Nucleated RBCs 1 /100WBC 08/01/19 06:40 Differential Comment Manual differential 08/01/19 06:40 RBC Morphology See below 08/01/19 06:40 Polychromasia Present 08/01/19 06:40 Hypochromasia 2+ 08/01/19 06:40 Poikilocytosis 2+ 08/01/19 06:40 Basophilic Stippling Present 07/29/19 06:45 Anisocytosis 2+ 07/29/19 06:45 Microcytosis 2+ 08/01/19 06:40 Ovalocytes 2+ 07/29/19 06:45 ESR 55 mm/hr (1-20) H 07/24/19 18:10 PT 10.9 sec (9.3-11.0) 08/02/19 07:20 INR 1.1 (0.9-1.1) 08/02/19 07:20 APTT 26.4 sec (21.0-31.4) 07/24/19 18:10 ABG Sample Site Left radial 07/30/19 08:30 ABG pH 7.32 (7.35-7.45) L 07/30/19 08:30 ABG pCO2 53 mmHg (34-47) H 07/30/19 08:30 ABG pO2 117 mmHg (83-108) H 07/30/19 08:30 ABG HCO3 27 mmol/L (22-28) 07/30/19 08:30 ABG Total CO2 26 mmol/L (22-29) 07/30/19 08:30 ABG O2 Saturation 99 % (94-98) H 07/30/19 08:30 ABG Base Excess 0.7 mmol/L (-3-3) 07/30/19 08:30 Oxygen Liter Flow 2 L 07/30/19 08:30 Sodium 145 mmol/L (136-145) 08/02/19 06:05 Potassium 2.7 mmol/L (3.5-5.1) L* 08/02/19 06:05 Chloride 105 mmol/L (98-107) 08/02/19 06:05 Carbon Dioxide 36.1 mmol/L (21.0-32.0) H 08/02/19 06:05 Anion Gap 3.9 mmol/L (3-11) 08/02/19 06:05 BUN 32 mg/dL (7-18) H 08/02/19 06:05 Creatinine 1.26 mg/dL (0.70-1.30) 08/02/19 06:05 Estimated GFR/1.73 m2 58.38 (mL/min/1.73m2) 08/02/19 06:05 Glucose 294 mg/dL (74-106) H D 08/02/19 06:05 Lactate 0.7 mmol/L (0.6-1.4) 07/30/19 15:40 Calcium 8.3 mg/dL (8.5-10.1) L 08/02/19 06:05 Phosphorus 2.2 mg/dL (2.6-4.7) L 08/02/19 06:05 Magnesium 1.8 mg/dL (1.8-2.4) 08/02/19 06:05 Iron 42 ug/dL (65-175) L 07/29/19 06:45 TIBC 157 ug/dL (250-450) L 07/29/19 06:45 Transferrin % Sat 27 % (20-55) 07/29/19 06:45 Ferritin 660 ng/mL (26-388) H 07/29/19 06:45 Total Bilirubin 0.6 mg/dL (0.2-1.0) 08/02/19 06:05 AST 17 U/L (15-37) 08/02/19 06:05 ALT 18 U/L (16-63) 08/02/19 06:05 Alkaline Phosphatase 88 U/L (46-116) 08/02/19 06:05 Troponin I < 0.05 ng/mL (<0.06) 08/01/19 12:25 C-Reactive Protein 4.84 mg/dL (0.0-0.3) H 07/26/19 06:45 Total Protein 5.4 g/dL (6.4-8.2) L 08/02/19 06:05 Albumin 2.3 g/dL (3.4-5.0) L 08/02/19 06:05 Tumor Marker AFP <2.5 ng/mL (<8.1) 07/27/19 06:35 Carcinoembryonic Ag 1.5 ng/ml (See Note) 07/26/19 06:45 Procalcitonin 0.5 ng/mL 07/30/19 09:40 TSH 0.28 uIU/mL (0.36-3.74) L 07/24/19 18:10 Free T4 1.20 ng/dL (0.76-1.46) 07/24/19 18:10 Urine Color Yellow (Yellow) 07/24/19 18:40 Urine Clarity Cloudy (Clear) 07/24/19 18:40 Urine pH 6.0 (5-8) 07/24/19 18:40 Ur Specific [place] 1.010 (1.005-1.025) 07/24/19 18:40 Urine Protein 30 mg/dL (Negative) H 07/24/19 18:40 Urine Ketones Negative mg/dL (Negative) 07/24/19 18:40 Urine Blood Moderate (Negative) H 07/24/19 18:40 Urine Nitrite Positive (Negative) H 07/24/19 18:40 Urine Bilirubin Negative (Negative) 07/24/19 18:40 Urine Urobilinogen 0.2 EU/dL (Up TO 0.2) 07/24/19 18:40 Ur Leukocyte Esterase Moderate (Negative) H 07/24/19 18:40 Urine RBC Not Applicable 07/24/19 18:40 Urine WBC >50 HPF (0-5) H 07/24/19 18:40 Ur Epithelial Cells Not Applicable 07/24/19 18:40 Urine Crystals Not Applicable 07/24/19 18:40 Urine Bacteria HPF (Negative) 07/24/19 18:40 Urine Mucus Not Applicable 07/24/19 18:40 Ur Culture Indicated? Yes 07/24/19 18:40 Urine Glucose >=1000 mg/dL (Negative) H 07/24/19 18:40 Vancomycin Trough 27.5 ug/mL (10.0-20.0) H* 08/01/19 12:55 c-ANCA Negative (Negative) 07/27/19 06:35 p-ANCA Negative (Negative) 07/27/19 06:35 COVID-19 PCR Negative (Negative) 07/24/19 21:45 Nasopharyn COVID-19 PCR Not Applicable 07/24/19 21:45 Ref Test Perform Site [facility] lab 07/24/19 21:45 Patient ABO/Rh AB Negative 07/25/19 10:55 Antibody Screen Negative 07/25/19 10:55 Echo, XR abdomen pending
[2019-08-02] MEDS: HYDROmorphone 2 MG/ML VIAL 1 MG IVP (11:54)
--- NOTE | 2019-08-02 12:33 | NS.NUTBLAN_ITS ---
Date of service: 08/02/19 Time of Service: 12:34 Nutritional Consult ASSESSMENT: 59 year old male, admitted with protein calorie malnutrition, stage 4 pressure wound on sacrum. PMH: DM2, obesity, HTN now with new onset small bowel obstruction. Lives at the [facility]. Prior to SBO and NPO status, was meeting nutrient needs by mouth with double protein at meals, liquid protein supplement TID. Estimated Needs: 4194-1897 kcal, 100-130 g protein. Nutrient needs elevated in view of increased nutrient needs with wounds and recent significant weight loss of 28 lbs in last 90 days. Current TPN D10/4.25 2L/ 85 ml/hr. 20% lipid 50 g lipid/ 250 ml/31.25 ml/hr : providing 1520 kcal, 85 g protein-meeting >50% of needs at this time. Recommend continue current TPN order as PO intake may be advanced soon. If remains on TPN > 5 days, will make recommendations to increase nutrient components to meet nutrient needs for optimal wound healing and maintain lean body mass. Will follow prn. Time Spent in Nutritional Counseling and Treatment: 20 min
--- NOTE | 2019-08-02 13:48 | CHAPLAIN ---
Brendan was in bed when I visited. He was more alert than when I saw him on Friday. He said his wound is still sore, but that he is being repositioned a lot to help with that. He asked about the tea bags I offered him on Friday. Someone from Care Management was going to bring them to him, but I said I will bring more since they may have gotten lost in his move from Med/Surg to ICU. I listened to a conversation with Dr. Canela and Dr. Carter talking about Brendan's small bowel obstruction and other complicating issues. He is not a good candidate for surgery, and Dr. Canela said there is no reason to transfer him to [facility] if he isn't having surgery. Brendan is a palliative care patient and Dr. Canela said she will request a consult, if it hasn't been done already. Brendan has continued to want to be full code and is aware and can make make his own decisions. Currently he is agreeing to the NG tube, which he asked to have removed over the weekend and is agreeing to the treatments being offered. Brendan lives at the [facility]. He used to enjoy looking for property in [place] on his iPad, although I don't believe he's done that in a while. He is in phone contact with a sister from time to time, and used to talk about nephews but I don't believe he has been in touch with them in a couple of years. Brendan has had many admissions that past couple years and is well known to [facility] staff.
[2019-08-02 14:33] LABS: Bilirubin Negative (Negative); Blood Trace-intact (Negative); Clarity Clear (Clear); Glucose 250 mg/dL (Negative); Ketones Negative (Negative); Leukocyte Esterase Negative (Negative); Nitrite Negative (Negative); Specific Gravity 1.015 (1.005-1.025); Urobilinogen 0.2 EU/dL (Up TO 0.2); pH 6.5 (5-8)
[2019-08-02 14:57] LABS: Epithelial Cells Few HPF (Negative); RBC 0-2 HPF (0-2)
[2019-08-02 14:58] LABS: Bacteria Few HPF (Negative); C & S Indicated? Yes; Casts 0-2 Hyaline LPF (Negative); Crystals Negative HPF (Negative); Mucus Negative (Negative); Other Cells Few Transitional (Negative)
[2019-08-02] MEDS: VANCOMYCIN 1,000 MG in Normal Saline 250 ML 167 MG IV (17:23)
[2019-08-02 17:26] LABS: Anion Gap 4.6 mmol/L (3-11); BUN 31 mg/dL (7-18); CO2 34.4 mmol/L (21.0-32.0); CREATININE 1.17 mg/dL (0.70-1.30); Calcium 8.3 mg/dL (8.5-10.1); Chloride 105 mmol/L (98-107); Glucose 269 mg/dL (74-106); Potassium 3.4 mmol/L (3.5-5.1); Sodium 144 mmol/L (136-145)
[2019-08-02] MEDS: niCARdipine 25 MG in Normal Saline 240 ML 50 MG IV (18:09)
--- NOTE | 2019-08-02 18:22 | W.PALLCONSUL ---
Date of service: 08/02/19 Time of Service: 18:22 History of Present Illness Narrative: Brendan is a 59-year-old man who I know very well. 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 He has multiple comorbidities including severe diabetes, abscesses around his gallbladder, colectomy due to Crohn's, severe rheumatoid arthritis with multiple deformities. He was recently admitted yet again for decline. He is found to have a small bowel obstruction. Surgery has been consulted and he is not a surgical candidate and they are concerned about fistula formation. If he can heal himself, it would probably be with months of antibiotics and TPN. I was asked by Dr. Canela to talk with Lorena about his choices. I have spoken to on many times and have done many palliative consults with him regarding his choices. He always chooses the aggressive approach and states I want to live. [facility] ethics committee has had meetings regarding ongoing as futility is a concern as we keep being aggressive with a person with him severe Initially when I spoke with ON he refused to turn the TV off stating that it was of good program and he wanted to watch it. He eventually did concede and turned off the TV. We talked for some time about his present illness etc. eventually he said to me so I am going to . We talked about what life would be like if he was able to survive this. He was emphatic that he wants to be able to eat. That is 1 of his joys in life. He also stated that he has been praying for a miracle. Consults Consult date: 08/02/19 Requesting physician: Priscila Canela Assessment and Plan Assessment and plan (1) SBO (small bowel obstruction): Status: Acute (2) ESBL (extended spectrum beta-lactamase) producing bacteria infection: Status: Acute (3) MRSA bacteremia: Status: Acute (4) Chronic iron deficiency anemia: Status: Acute (5) Decubitus ulcer of sacral region, stage 4: Status: Acute (6) Pulmonary hypertension: Status: Acute (7) Advanced care planning/counseling discussion: Status: Acute Assessment and plan: We spent a long time discussing the SBO and treatment of it. He understands that he is not a surgical candidate. He understands that if he recovers from the SBO it may mean a [facility] path with parts counterman antibiotics and TPN. He loves to eat and penitentiary TPN did not appeal to him. He understands he has many comorbities and little reserve. Still he states I want to live.. He asks if transfer to another hospital would be advantageous. After some time he asked me if he was going to soon. I did say that he may, but I didn't know at this time. He admitted he had been praying for recovery. He would like to see the Staffing Assistant. He wanted to call some friends when I was leaving. There were many tears. I said I would be back to visit Friday. I do think Brendan comprehends that this hospitalization may be his last. His grasp of reality and prognostication has been limited in the past. He did ask me that if he was going to , he wanted to eat. Thank you for the consult. I have known Brendan for almost 20 years. I appreciate participating in his care at this crucial time. Review of Systems Narrative: He states that he does not feel well. He has a NGT. Eyes Eyes: Denies change in vision ENT Ears, Nose, Mouth, and Throat: Reports bleeding gums Cardiovascular Cardiovascular: Denies chest pain Respiratory Comments: SOB at times Genitourinary Comments: ruiz in place Musculoskeletal Musculoskeletal: Reports back pain, Reports myalgias, Reports atrophy, Reports deformity, Reports arthralgias, Reports joint swelling, Reports limited range of motion and Reports muscle weakness Psychiatric Psychiatric: Reports anxiety, Reports depression and Reports mood swings [facility] Medical History (Updated 08/02/19 @ 12:07 by Chance Angeles MD) Acromegaly (Chronic) Acute on chronic kidney failure (Resolved) Adrenal insufficiency (Chronic) Ambulatory dysfunction (Chronic) Anemia (Chronic Unknown) Atrial flutter, paroxysmal (Chronic) Back pain (Chronic 06/21/13) CAD (coronary artery disease) (Chronic) Cardiopulmonary arrest with successful resuscitation (Resolved) Chronic anxiety (Chronic) Chronic bipolar disorder (Chronic) a. With history of psychosis. Chronic cholecystitis (Chronic) Chronic insomnia (Chronic) Chronic iron deficiency anemia (Acute) Chronic pain (Chronic) On both Methadone and Fentanyl as well as Ultram and Naproxen. CKD (chronic kidney disease) (Chronic) Decubitus ulcer of sacral region, stage 4 (Acute) Decubitus ulcer, stage 4 with infection (Acute) Diabetes mellitus (Chronic) Diabetic ulcer of toe associated with diabetes mellitus due to underlying condition, with bone involvement without evidence of necrosis (Inactive) 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 (Resolved) DVT (deep venous thrombosis) (Chronic) Dg April 2019. Has IVC filter placed 04/2019 Dyslipidemia (Chronic) Endocarditis due to Staphylococcus (Resolved) Hemorrhagic cystitis (Chronic) Hep C w/o coma, chronic (Acute) History of DVT (deep vein thrombosis) (Acute) Hyperkalemia (Resolved) Hypomagnesemia (Resolved) Hypothyroidism (Chronic) Hypoventilation associated with obesity syndrome (Chronic) Ileostomy in place (Acute) Impaired mobility and ADLs (Chronic) Inability to get out of bed (Chronic 06/21/13) Lactic acidosis (Resolved) MRSA bacteremia (Acute) Obesity (Chronic) a. Obesity though he has had significant weight loss since last seen. Old non-ST elevation myocardial infarction (NSTEMI) (Acute) March 2019 Open wound of left lower extremity without complication (Acute) secondary to trauma and from anticoagulation 04/2019 Osteoarthritis of both knees (Chronic) Severe. a. [id number] bilateral knees. 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 2 diabetes mellitus (Resolved) Palliative care encounter (Chronic) DObbertin PEA (Pulseless electrical activity) (Acute) episode of bradycardic arrest/PEA. thought to be secondary to gram neg sepsis from acute sonny. 03/2019 Pedal edema (Chronic) Poor self care (Chronic 06/21/13) Poorly controlled type 2 diabetes mellitus with circulatory disorder (Chronic) Presence of IVC filter (Acute) Protein-calorie malnutrition, mild (Acute) Pulmonary hypertension (Chronic) Rheumatoid arthritis (Chronic) Sepsis (Resolved) Septic arthritis of elbow, right (Inactive) Toxic metabolic encephalopathy (Resolved) Ulcer of left lower leg (Chronic) Ulcerative colitis (Chronic) UTI (urinary tract infection) (Resolved) UTI (urinary tract infection) due to Enterococcus (Resolved) Surgical History (Updated 07/25/19 @ 13:32 by Lela Webb DO) Arthroplasty of knee (Resolved 03/18/12) irrigation and lavage right Fracture, Open Treatment (Resolved) 06/06/17[facility] S/P ORIF RIGHT DISTAL HUMERUS FRACTURE History of insertion of T-tube into biliary tract (Chronic) S/P colectomy (Chronic) S/P proctocolectomy (Acute) Social History Smoking/Tobacco Use Status: Former Tobacco Use Alcohol Intake: former Drug use: Rarely Substance use type: marijuana [facility] Do you feel safe at home: Yes Do you feel safe in your relationship?: Yes Additional Social history: Living at [facility] in [place] Exam Narrative Exam Narrative: Patient is lying in bed. He has an NG tube placed. He is able to look me in the eye. His neck has reduced range of motion and right rotation. He is multiple broken teeth and bleeding gums. His heart is slightly irregular. Lungs difficult to hear heart for him to take a deep breath in. Bowel sounds reduced. His abdomen is tender. His ileostomy is in place. I did not examine the sacral wound. His feet are wrapped. His hands have multiple deformities. Mood quite sad when we talked about his present condition. Results Last Vital Signs Temp 97.9 F 08/02/19 15:10 Pulse 46 L 08/02/19 16:49 Resp 18 08/02/19 16:49 BP 191/82 H 08/02/19 16:49 Pulse Ox 98 08/02/19 16:49 Labs Result diagrams: 08/02/19 06:05 08/02/19 17:08 Labs: Laboratory Results - last 24 hr 08/01/19 08/02/19 08/02/19 19:26 06:05 06:05 WBC 9.89 RBC 3.98 L Hgb 8.7 L Hct 29.6 L MCV 74.4 L MCH 21.9 L MCHC 29.4 L RDW 18.6 H Plt Count 298 MPV 9.7 Immature Gran % 3.1 Neutrophils % 85.0 Lymphocytes % 7.0 Monocytes % 4.6 Eosinophils % 0.2 Basophils % 0.1 Absolute Neutrophils 8.41 H Absolute Lymphocytes 0.69 L Absolute Monocytes 0.45 Absolute Eosinophils 0.02 Absolute Basophils 0.01 PT INR Sodium 145 Potassium 2.8 L* Chloride 106 Carbon Dioxide 33.9 H Anion Gap 5.1 BUN 33 H Creatinine 1.52 H Estimated GFR/1.73 m2 47.01 Glucose 166 H Calcium 8.5 Phosphorus Magnesium 1.8 Total Bilirubin AST ALT Alkaline Phosphatase Total Protein Albumin Urine Color Urine Clarity Urine pH Ur Specific [place] Urine Protein Urine Ketones Urine Blood Urine Nitrite Urine Bilirubin Urine Urobilinogen Ur Leukocyte Esterase Urine RBC Urine WBC Ur Epithelial Cells Urine Crystals Urine Bacteria Urine Casts Urine Mucus Urine Other Ur Culture Indicated? Urine Glucose 08/02/19 08/02/19 08/02/19 06:05 06:05 07:20 WBC RBC Hgb Hct MCV MCH MCHC RDW Plt Count MPV Immature Gran % Neutrophils % Lymphocytes % Monocytes % Eosinophils % Basophils % Absolute Neutrophils Absolute Lymphocytes Absolute Monocytes Absolute Eosinophils Absolute Basophils PT Cancelled 10.9 INR Cancelled 1.1 Sodium 145 Potassium 2.7 L* Chloride 105 Carbon Dioxide 36.1 H Anion Gap 3.9 BUN 32 H Creatinine 1.26 Estimated GFR/1.73 m2 58.38 Glucose 294 H D Calcium 8.3 L Phosphorus 2.2 L Magnesium Total Bilirubin 0.6 AST 17 ALT 18 Alkaline Phosphatase 88 Total Protein 5.4 L Albumin 2.3 L Urine Color Urine Clarity Urine pH Ur Specific [place] Urine Protein Urine Ketones Urine Blood Urine Nitrite Urine Bilirubin Urine Urobilinogen Ur Leukocyte Esterase Urine RBC Urine WBC Ur Epithelial Cells Urine Crystals Urine Bacteria Urine Casts Urine Mucus Urine Other Ur Culture Indicated? Urine Glucose 08/02/19 08/02/19 14:10 17:08 WBC RBC Hgb Hct MCV MCH MCHC RDW Plt Count MPV Immature Gran % Neutrophils % Lymphocytes % Monocytes % Eosinophils % Basophils % Absolute Neutrophils Absolute Lymphocytes Absolute Monocytes Absolute Eosinophils Absolute Basophils PT INR Sodium 144 Potassium 3.4 L Chloride 105 Carbon Dioxide 34.4 H Anion Gap 4.6 BUN 31 H Creatinine 1.17 Estimated GFR/1.73 m2 >= 60.00 Glucose 269 H Calcium 8.3 L Phosphorus Magnesium Total Bilirubin AST ALT Alkaline Phosphatase Total Protein Albumin Urine Color Yellow Urine Clarity Clear Urine pH 6.5 Ur Specific [place] 1.015 Urine Protein 100 H Urine Ketones Negative Urine Blood Trace-intact H Urine Nitrite Negative Urine Bilirubin Negative Urine Urobilinogen 0.2 Ur Leukocyte Esterase Negative Urine RBC 0-2 Urine WBC 5-10 Ur Epithelial Cells Few Urine Crystals Negative Urine Bacteria Few Urine Casts 0-2 hyaline Urine Mucus Negative Urine Other Few transitional Ur Culture Indicated? Yes Urine Glucose 250 H
[2019-08-02] MEDS: niCARdipine 25 MG in Normal Saline 240 ML 7.5 MG IV (21:43)
[2019-08-02] MEDS: LORazepam 1 MG TAB PO (22:28)
[2019-08-02] MEDS: Insulin Glargine 300 UNITS/3 ML PEN 20 UNITS SC (22:56)
[2019-08-03] VITALS (42 sets, daily range): BP systolic 145–219; BP diastolic 57–117; PULSE 43–93; RESP 11–24; TEMP 35.5–36.6; O2SAT 94–100
[2019-08-03] MEDS: Insulin Aspart 300 UNITS/3 ML PEN SC ×5 (00:11→18:52)
[2019-08-03] MEDS: niCARdipine 25 MG in Normal Saline 240 ML 7.5 MG IV ×2 (01:18→05:15)
[2019-08-03] MEDS: Hydrocortisone SOD SUC. 100 MG VIAL 75 MG IVP ×3 (02:01→18:05)
[2019-08-03] MEDS: ACETAMINOPHEN 1,000 MG/100 ML BTL 400 MG IVPB ×3 (05:17→22:39)
[2019-08-03] MEDS: Normal Saline Flush 10 ML SYR IVP ×4 (06:51→18:06)
[2019-08-03] MEDS: Pantoprazole 40 MG VIAL IVP (08:40)
[2019-08-03] MEDS: Normal Saline Flush 10 ML SYR 20 ML IVP ×2 (08:41→20:12)
[2019-08-03 09:03] LABS: Abs Immature Grans 0.14 k/cumm (0.0-0.09); Absolute Basophil Count 0.01 k/cumm (0.0-0.2); Absolute Lymphocyte Count 0.77 k/cumm (1.2-3.4); Absolute Monocyte Count 0.59 k/cumm (0.11-0.7); Absolute Neutrophil Count 8.59 k/cumm (1.2-6.7); Basophils % 0.1; HCT 32.3 % (40.0-50.0); HGB 9.5 g/dL (13.5-17.5); Immature Grans % 1.4 %; Lymphocytes % 7.6; Mean Corp. HGB Concentration 29.4 g/dL (32.0-36.0); Mean Corpuscular Hemoglobin 22.3 pg (27.0-33.0); Mean Corpuscular Volume 75.8 fL (80-95); Mean Platelet Volume 9.2 fL (8.0-11.0); Monocytes % 5.8; Neutrophils % 85.1; Platelet Count 285 x1000/uL (130-400); RBC 4.26 m/cumm (4.50-6.00); RBC Distribution Width 19.1 % (11.8-14.1)
[2019-08-03 09:13] LABS: Anion Gap 4.1 mmol/L (3-11); BUN 34 mg/dL (7-18); CO2 32.9 mmol/L (21.0-32.0); CREATININE 1.31 mg/dL (0.70-1.30); Calcium 8.8 mg/dL (8.5-10.1); Chloride 106 mmol/L (98-107); Estimated GFR 55.81 (mL/min/1.73m2); Glucose 275 mg/dL (74-106); Potassium 3.5 mmol/L (3.5-5.1); Sodium 143 mmol/L (136-145)
[2019-08-03] MEDS: MEROPENEM 1 GM in Normal Saline 100 ML IVPB (09:32)
[2019-08-03] MEDS: MORPHine 10 MG/ML VIAL IVP ×2 (09:33→15:06)
[2019-08-03] MEDS: LORazepam 1 MG TAB PO (09:37)
[2019-08-03] MEDS: POTASSIUM CHLORIDE 20 MEQ/100 ML BAG 50 MEQ IVPB ×2 (10:53→13:37)
[2019-08-03] MEDS: hydrALAZINE 20 MG/ML VIAL 5 MG IVP ×2 (10:53→18:05)
[2019-08-03 10:55] LABS: Prealbumin 25 mg/dL (20-40)
--- NOTE | 2019-08-03 10:57 | CHAPLAIN ---
Brendan was watching tv when I visited. He told me about his conversation (Palliative Care consult) with Dr. Horowitz yesterday. Brendan said Dr. Horowitz told him he could during this admission. He acknowledged that he's been through a lot medically and survives, (Dr. Horowitz told me I've had more lives than a cat, Brendan said.) but it's possible he may not this time. Based on some part of the conversation with Dr. Horowitz, Brendan said he should know by Friday if he's going to survive or not. He said he doesn't want to and that he doesn't want to in the hospital. When I asked where he'd like to , he said in my own place. He would really like to eat, especially steak. He said he told Dr. Horowitz that if he's dying, he wants a steak. Because of his sbo, he hasn't been able to eat, and understand that he will be tube fed for months. When I asked how he's getting through all this, given it's a lot to comprehend, he said that he doesn't think a lot, and distracts himself with tv. He also said he takes things one day at time. He is looking forward to speaking with Dr. Horowitz again today. Brendan spoke with his sister last night, and another friend. He has another friend he would like to call yadira. At one time Brendan nephews would visit him, but I believe it's been a while since he's seen them. Two live in [place]. Brendan had asked me for some herbal tea. I gave some tea bags to MACARENA Lewis, for him.
--- NOTE | 2019-08-03 12:17 | W.PM.PROGNOT ---
Date of Service Date of service: 08/03/19 Time of Service: 12:17 Assessment and Plan Assessment and plan (1) SBO (small bowel obstruction): Status: Acute Assessment and plan: S/p NGT. As output in the ostomy is improving, NGT was clamped. Will monitor. SBO could be due to a Crohn's flare/attempt at fistula formation. Will start PO meds. Will d/c meropenem. Likely ok to d/c TPN with plans to start clears later today or tomorrow. Per surgery, the patient is not a surgical candidate, should he worsen. Palliative care discussed with the patient that his prognosis right now is uncertain. Sounds like the conversation is to be continued. (2) Ventricular escape rhythm: Status: Acute Assessment and plan: Evaluated by cardiology - continue to replete K, hold beta blockers, encourage trilogy. Does not appear to be vagal in etiology. Patient is s/p negative MPI in 12/2018 ([facility] [place]). No further ischemic workup is indicated at this time. (3) Hypokalemia: Status: Acute Assessment and plan: Replete, monitor. (4) MRSA bacteremia: Status: Acute Assessment and plan: On blood cultures 07/24/2019, cleared on blood cultures on 07/27/2019. Likely source is the decubitous wound (present on admission). Pathology is pending on the bx - ? related to Crohn's. Continue vancomycin x 4 weeks since negative blood cultures. Expected end date is 08/23/2019. no evidence of endocarditis on echo. (5) Decubitus ulcer, stage 4 with infection: Status: Acute Assessment and plan: s/p surgical debridement on and 07/26/2019. Surgical wound cx with MRSA. As above - no clear evidence of fistula formation/Crohn's activity on pathology. Continue wound vac. Continue vancomycin. Continue MVI, vitamin C, zinc supplementation per nutrition. Offload/mobilize as able. (6) ESBL (extended spectrum beta-lactamase) producing bacteria infection: Status: Acute Assessment and plan: UTI Due to ESBL E. Coli, present on admission, now s/p ruiz. Repeat UA negative for a UTI - d/c meropenem. (7) Vomiting: Status: Resolved Assessment and plan: Due to SBO. Resolved with NGT in place. (8) Adrenal insufficiency: Status: Chronic Assessment and plan: Continue Solucortef 75 mg IV Q8 hours for today. (9) Acute kidney injury superimposed on chronic kidney disease: Status: Acute Assessment and plan: Improved post insertion of ruiz catheter and with positive air pressure. Cr great yesterday and today. We will d/c IVF/TPN today and consider re-insituting diuretics tomorrow. Continue trilogy as it is clearly helping him perfuse his kidneys. (10) Hyperkalemia: Status: Resolved Assessment and plan: Resolved with treatment of JESUS and adrenal crisis. (11) CAD (coronary artery disease): Status: Chronic Assessment and plan: Neg MPI in 12/2018. No further plans for ischemic workup at this time. (12) Atrial flutter, paroxysmal: Status: Chronic Assessment and plan: In NSR at this time. Continue to monitor on a maintainer central office. (13) Diabetes mellitus: Status: Chronic Assessment and plan: Tapering steroids today. Continue basal bolus insulin, adjusting based on steroid dose. Qualifiers: Diabetes mellitus complication detail: with polyneuropathy Diabetes mellitus complication status: with neurologic complications Diabetes mellitus penitentiary insulin use: with terminal worker use Diabetes mellitus type: type 2 Qualified Code(s): E11.42 - Type 2 diabetes mellitus with diabetic polyneuropathy; Z79.4 - group home (current) use of insulin (14) History of DVT (deep vein thrombosis): Status: Acute Assessment and plan: S/p IVC filter. Anticoagulation on hold due to bleeding decubitus wound. (15) Bradycardia: Status: Resolved Assessment and plan: Resolved off beta blockers. Continue to monitor. (16) CHF (congestive heart failure): Status: Chronic Assessment and plan: Currently near euvolemic. Holding lasix for today. (17) Hypoventilation associated with obesity syndrome: Status: Chronic Assessment and plan: It is so exciting to see Brendan actually wear the trilogy - his lab values immediately show benefit. Continue to encourage trilogy when asleep. (18) Hypertension: Status: Chronic Assessment and plan: Resume amlodipine and terazosin. Will try to avoid metoprolol. Qualifiers: Hypertension type: essential hypertension Qualified Code(s): I10 - Essential (primary) hypertension (19) Ulcer of left lower leg: Status: Chronic Assessment and plan: Continue wound care with Mepilex. Qualifiers: Non-pressure ulcer stage: limited to breakdown of skin Qualified Code(s): L97.921 - Non-pressure chronic ulcer of unspecified part of left lower leg limited to breakdown of skin (20) DVT prophylaxis: Status: Acute Assessment and plan: S/p IVC filter. Chemical treatment/ppx is contraindicated due to the bleeding decubitous wound. (21) Discharge planning issues: Status: Acute Assessment and plan: Full code. Continues to require hospitalization. Keep in ICU. Total Critical Care Time 45 minutes. Subjective Subjective Interval history since last seen: Ostomy started to put out a little bit more - soft, not liquid output, looks dark. Spent the night on trilogy. Noted to have runs of ventricular rhythm even when awake, however, though never long. Baseline HR is coming up - today in 80's. Denies dizziness, chest pain, shortness of breath, nausea. Reports some abdominal pain, all over the abdomen today. Nursing did note that while the patient was on cardene gtt, he had more PVCs. It has been weaned off now. NGT clamped per general surgery - ok to start PO meds. Exam Narrative Exam Narrative: General: Pleasant obese male, Napping with trilogy on, easily arounsable, A&Ox3 HEENT: EOMI, MMM, NGT in - clamped Heart: RRR, no m/r/g, rate does seem more rapid today, and I heard one extra beat that looked like PVC on monitor Lungs: CTAB anteriorly Abdomen: soft, hypoactive bowel sounds throughout, tender throughout abdomen today. Dark stool in ostomy, soft. Extremities: +1 BLE edema, unchanged, B chronic venous stasis changes; LLE tibial surface dressed - c/d/, L foot wound dressed, c/d/i. Objective Objective Clinical Data: Abnormal lab results 08/02/19 08/02/19 08/03/19 Range/Units 14:10 17:08 08:50 RBC (4.50-6.00) m/cumm Hgb (13.5-17.5) g/dL Hct (40.0-50.0) % MCV (80-95) fL MCH (27.0-33.0) pg MCHC (32.0-36.0) g/dL RDW (11.8-14.1) % Absolute Neutrophils (1.2-6.7) k/cumm Absolute Lymphocytes (1.2-3.4) k/cumm Potassium 3.4 L (3.5-5.1) mmol/L Carbon Dioxide 34.4 H 32.9 H (21.0-32.0) mmol/L BUN 31 H 34 H (7-18) mg/dL Creatinine 1.31 H (0.70-1.30) mg/dL Glucose 269 H 275 H (74-106) mg/dL Calcium 8.3 L (8.5-10.1) mg/dL Urine Protein 100 H (Negative) mg/dL Urine Blood Trace-intact H (Negative) Urine Glucose 250 H (Negative) mg/dL 08/03/19 Range/Units 08:50 RBC 4.26 L (4.50-6.00) m/cumm Hgb 9.5 L (13.5-17.5) g/dL Hct 32.3 L (40.0-50.0) % MCV 75.8 L (80-95) fL MCH 22.3 L (27.0-33.0) pg MCHC 29.4 L (32.0-36.0) g/dL RDW 19.1 H (11.8-14.1) % Absolute Neutrophils 8.59 H (1.2-6.7) k/cumm Absolute Lymphocytes 0.77 L (1.2-3.4) k/cumm Potassium (3.5-5.1) mmol/L Carbon Dioxide (21.0-32.0) mmol/L BUN (7-18) mg/dL Creatinine (0.70-1.30) mg/dL Glucose (74-106) mg/dL Calcium (8.5-10.1) mg/dL Urine Protein (Negative) mg/dL Urine Blood (Negative) Urine Glucose (Negative) mg/dL Vital Signs Temperature 36.4 C L 08/03/19 11:43 Temperature Source Temporal Artery Scan 08/03/19 11:43 Pulse 77 08/03/19 10:21 Pulse Rhythm Regular 07/30/19 07:30 Pulse 80 08/03/19 10:21 Respiratory Rate 17 08/03/19 10:21 Respiratory Effort Non-Labored 06/09/20 11:43 Respiratory Depth Shallow 08/03/19 11:43 Respiratory Pattern Normal 08/03/19 11:43 Blood Pressure 187/77 H 08/03/19 10:21 Blood Pressure Mean 98 08/03/19 10:21 Blood Pressure Position Right Lateral 08/02/19 11:59 Pulse Oximetry 99 08/03/19 11:43 Oxygen Delivery Method Room Air 08/03/19 11:43 Oxygen Flow Rate 0 08/03/19 11:43 Pain Level 3 08/03/19 11:43 Comment 08/02/19 08:56 Intake & Output 08/02/19 08/03/19 08/03/19 23:59 11:59 23:59 Intake Total 3008.387 / 3868.387 272.000 / 272.000 Output Total 1550 / 5175 2250 / 2250 Balance 1458.387 / -1306.613 -1978.000 / -1977.000 Intake: IV 2958.387 / 3818.387 272.000 / 272.000 Oral 50 / 50 Output: Gastric Drainage 325 / 775 1600 / 1600 Right Nare 325 / 775 1600 / 1600 Urine 1200 / 4375 500 / 500 Stool 25 / 25 150 / 150 Emesis 0 / 0 Other: Urine Color Yellow Yellow Urine Appearance Clear Clear Comment Ruiz in place draining clear yellow urine. Ruiz in place Stool Occult Blood Positive Emesis Description None Gastric Occult Blood Right Nare Negative Negative Laboratory Results WBC 10.10 k/cumm (4.4-10.8) 08/03/19 08:50 RBC 4.26 m/cumm (4.50-6.00) L 08/03/19 08:50 Hgb 9.5 g/dL (13.5-17.5) L 08/03/19 08:50 Hct 32.3 % (40.0-50.0) L 08/03/19 08:50 MCV 75.8 fL (80-95) L 08/03/19 08:50 MCH 22.3 pg (27.0-33.0) L 08/03/19 08:50 MCHC 29.4 g/dL (32.0-36.0) L 08/03/19 08:50 RDW 19.1 % (11.8-14.1) H 08/03/19 08:50 Plt Count 285 x1000/uL (130-400) 08/03/19 08:50 MPV 9.2 fL (8.0-11.0) 08/03/19 08:50 Immature Gran % 1.4 % 08/03/19 08:50 Neutrophils % 85.1 08/03/19 08:50 Band Neutrophils % Cancelled 08/03/19 06:20 Lymphocytes % 7.6 08/03/19 08:50 Atypical Lymphs % Cancelled 08/03/19 06:20 Monocytes % 5.8 08/03/19 08:50 Eosinophils % 0.0 08/03/19 08:50 Basophils % 0.1 08/03/19 08:50 Metamyelocytes % Cancelled 08/03/19 06:20 Myelocytes % Cancelled 08/03/19 06:20 Promyelocytes % Cancelled 08/03/19 06:20 Absolute Neutrophils 8.59 k/cumm (1.2-6.7) H 08/03/19 08:50 Absolute Lymphocytes 0.77 k/cumm (1.2-3.4) L 08/03/19 08:50 Absolute Monocytes 0.59 k/cumm (0.11-0.7) 08/03/19 08:50 Absolute Eosinophils 0.00 k/cumm (0.0-0.7) 08/03/19 08:50 Absolute Basophils 0.01 k/cumm (0.0-0.2) 08/03/19 08:50 Nucleated RBCs Cancelled 08/03/19 06:20 Differential Comment Cancelled 08/03/19 06:20 Other Cell Type Cancelled 08/03/19 06:20 RBC Morphology Cancelled 08/03/19 06:20 Polychromasia Cancelled 08/03/19 06:20 Hypochromasia Cancelled 08/03/19 06:20 Poikilocytosis Cancelled 08/03/19 06:20 Basophilic Stippling Cancelled 08/03/19 06:20 Anisocytosis Cancelled 08/03/19 06:20 Microcytosis Cancelled 08/03/19 06:20 Macrocytosis Cancelled 08/03/19 06:20 Spherocytes Cancelled 08/03/19 06:20 Target Cells Cancelled 08/03/19 06:20 Tear Drop Cells Cancelled 08/03/19 06:20 Ovalocytes Cancelled 08/03/19 06:20 Stomatocytes Cancelled 08/03/19 06:20 [place] Bodies Cancelled 08/03/19 06:20 Sathya Cells Cancelled 08/03/19 06:20 Acanthocytes (Spur) Cancelled 08/03/19 06:20 Schistocytes Cancelled 08/03/19 06:20 ESR 55 mm/hr (1-20) H 07/24/19 18:10 PT 10.9 sec (9.3-11.0) 08/02/19 07:20 INR 1.1 (0.9-1.1) 08/02/19 07:20 APTT 26.4 sec (21.0-31.4) 07/24/19 18:10 ABG Sample Site Left radial 07/30/19 08:30 ABG pH 7.32 (7.35-7.45) L 07/30/19 08:30 ABG pCO2 53 mmHg (34-47) H 07/30/19 08:30 ABG pO2 117 mmHg (83-108) H 07/30/19 08:30 ABG HCO3 27 mmol/L (22-28) 07/30/19 08:30 ABG Total CO2 26 mmol/L (22-29) 07/30/19 08:30 ABG O2 Saturation 99 % (94-98) H 07/30/19 08:30 ABG Base Excess 0.7 mmol/L (-3-3) 07/30/19 08:30 Oxygen Liter Flow 2 L 07/30/19 08:30 Sodium 143 mmol/L (136-145) 08/03/19 08:50 Potassium 3.5 mmol/L (3.5-5.1) 08/03/19 08:50 Chloride 106 mmol/L (98-107) 08/03/19 08:50 Carbon Dioxide 32.9 mmol/L (21.0-32.0) H 08/03/19 08:50 Anion Gap 4.1 mmol/L (3-11) 08/03/19 08:50 BUN 34 mg/dL (7-18) H 08/03/19 08:50 Creatinine 1.31 mg/dL (0.70-1.30) H 08/03/19 08:50 Estimated GFR/1.73 m2 55.81 (mL/min/1.73m2) 08/03/19 08:50 Glucose 275 mg/dL (74-106) H 08/03/19 08:50 Lactate 0.7 mmol/L (0.6-1.4) 07/30/19 15:40 Calcium 8.8 mg/dL (8.5-10.1) 08/03/19 08:50 Phosphorus 2.2 mg/dL (2.6-4.7) L 08/02/19 06:05 Magnesium 2.0 mg/dL (1.8-2.4) 08/03/19 08:50 Iron 42 ug/dL (65-175) L 07/29/19 06:45 TIBC 157 ug/dL (250-450) L 07/29/19 06:45 Transferrin % Sat 27 % (20-55) 07/29/19 06:45 Ferritin 660 ng/mL (26-388) H 07/29/19 06:45 Total Bilirubin 0.6 mg/dL (0.2-1.0) 08/02/19 06:05 AST 17 U/L (15-37) 08/02/19 06:05 ALT 18 U/L (16-63) 08/02/19 06:05 Alkaline Phosphatase 88 U/L (46-116) 08/02/19 06:05 Troponin I < 0.05 ng/mL (<0.06) 08/01/19 12:25 C-Reactive Protein 4.84 mg/dL (0.0-0.3) H 07/26/19 06:45 Total Protein 5.4 g/dL (6.4-8.2) L 08/02/19 06:05 Albumin 2.3 g/dL (3.4-5.0) L 08/02/19 06:05 Prealbumin 25 mg/dL (20-40) 08/02/19 06:05 Tumor Marker AFP <2.5 ng/mL (<8.1) 07/27/19 06:35 Carcinoembryonic Ag 1.5 ng/ml (See Note) 07/26/19 06:45 Procalcitonin 0.5 ng/mL 07/30/19 09:40 TSH 0.28 uIU/mL (0.36-3.74) L 07/24/19 18:10 Free T4 1.20 ng/dL (0.76-1.46) 07/24/19 18:10 Urine Color Yellow (Yellow) 08/02/19 14:10 Urine Clarity Clear (Clear) 08/02/19 14:10 Urine pH 6.5 (5-8) 08/02/19 14:10 Ur Specific [place] 1.015 (1.005-1.025) 08/02/19 14:10 Urine Protein 100 mg/dL (Negative) H 08/02/19 14:10 Urine Ketones Negative mg/dL (Negative) 08/02/19 14:10 Urine Blood Trace-intact (Negative) H 08/02/19 14:10 Urine Nitrite Negative (Negative) 08/02/19 14:10 Urine Bilirubin Negative (Negative) 08/02/19 14:10 Urine Urobilinogen 0.2 EU/dL (Up TO 0.2) 08/02/19 14:10 Ur Leukocyte Esterase Negative (Negative) 08/02/19 14:10 Urine RBC 0-2 HPF (0-2) 08/02/19 14:10 Urine WBC 5-10 HPF (0-5) 08/02/19 14:10 Ur Epithelial Cells Few HPF (Negative) 08/02/19 14:10 Urine Crystals Negative HPF (Negative) 08/02/19 14:10 Urine Bacteria Few HPF (Negative) 08/02/19 14:10 Urine Casts 0-2 hyaline LPF (Negative) 08/02/19 14:10 Urine Mucus Negative (Negative) 08/02/19 14:10 Urine Other Few transitional (Negative) 08/02/19 14:10 Ur Culture Indicated? Yes 08/02/19 14:10 Urine Glucose 250 mg/dL (Negative) H 08/02/19 14:10 Vancomycin Trough 27.5 ug/mL (10.0-20.0) H* 08/01/19 12:55 c-ANCA Negative (Negative) 07/27/19 06:35 p-ANCA Negative (Negative) 07/27/19 06:35 COVID-19 PCR Negative (Negative) 07/24/19 21:45 Nasopharyn COVID-19 PCR Not Applicable 07/24/19 21:45 [facility] 07/24/19 21:45 Patient ABO/Rh AB Negative 07/25/19 10:55 Antibody Screen Negative 07/25/19 10:55 Echo: Left Ventricle : The left ventricle is normal size. The left ventricular systolic function is normal. The left ventricular ejection fraction is within the normal range. Moderate concentric left ventricular hypertrophy. There is normal LV segmental wall motion. The left ventricular diastolic function is normal. LVEF is 50-55%. Right Ventricle : Right ventricle is not well visualized. Right ventricular systolic function could not be assessed. The RVSP is 44.3 mmHg. Atria : The left atrium size is normal. The right atrium size is normal. Nose: There are no hemodynamically significant valvular lesions. There is no evidence of vegetation. Great Vessels : IVC is normal in size and collapses >50% with inspiration. Compared to echocardiogram from 05/04/2019 at [facility]: The patient is no longer in atrial fibrillation. There are no other significant changes.
[2019-08-03] MEDS: Gabapentin 300 MG CAP PO ×2 (13:37→20:00)
[2019-08-03] MEDS: amLODIPine 10 MG TAB PO (15:10)
[2019-08-03] MEDS: VANCOMYCIN 1,000 MG in Normal Saline 250 ML 167 MG IV (15:11)
[2019-08-03] MEDS: oxyCODONE 5 MG TAB PO (16:14)
[2019-08-03] MEDS: Terazosin 2 MG CAP 4 MG PO (20:00)
[2019-08-03] MEDS: risperiDONE 0.5 MG TAB 1.5 MG PO (22:40)
[2019-08-03] MEDS: Levothyroxine 25 MCG TAB 12.5 MCG PO (22:41)
[2019-08-04] VITALS (34 sets, daily range): BP systolic 148–207; BP diastolic 74–160; PULSE 52–106; RESP 12–25; TEMP 35.6–36.5; O2SAT 84–100
[2019-08-04] MEDS: Insulin Glargine 300 UNITS/3 ML PEN 35 UNITS SC
[2019-08-04] MEDS: Insulin Aspart 300 UNITS/3 ML PEN SC ×4 (01:06→23:54)
[2019-08-04] MEDS: MORPHine 10 MG/ML VIAL IVP (01:26)
[2019-08-04] MEDS: Hydrocortisone SOD SUC. 100 MG VIAL 75 MG IVP (02:00)
[2019-08-04] MEDS: ACETAMINOPHEN 1,000 MG/100 ML BTL 400 MG IVPB ×4 (05:23→22:52)
[2019-08-04 07:00] LABS: Abs Immature Grans 0.08 k/cumm (0.0-0.09); Absolute Basophil Count 0.01 k/cumm (0.0-0.2); Absolute Lymphocyte Count 1.29 k/cumm (1.2-3.4); Absolute Monocyte Count 0.72 k/cumm (0.11-0.7); Absolute Neutrophil Count 6.33 k/cumm (1.2-6.7); Basophils % 0.1; Eosinophils % 1.2; HCT 31.3 % (40.0-50.0); HGB 9.2 g/dL (13.5-17.5); Immature Grans % 0.9 %; Lymphocytes % 15.1; Mean Corp. HGB Concentration 29.4 g/dL (32.0-36.0); Mean Corpuscular Hemoglobin 22.7 pg (27.0-33.0); Mean Corpuscular Volume 77.1 fL (80-95); Mean Platelet Volume 9.1 fL (8.0-11.0); Monocytes % 8.4; Neutrophils % 74.3; Platelet Count 250 x1000/uL (130-400); RBC 4.06 m/cumm (4.50-6.00); RBC Distribution Width 19.7 % (11.8-14.1); White Blood Cell Count 8.53 k/cumm (4.4-10.8)
[2019-08-04 07:13] LABS: BUN 28 mg/dL (7-18); CREATININE 1.02 mg/dL (0.70-1.30); Calcium 8.9 mg/dL (8.5-10.1); Chloride 106 mmol/L (98-107); Glucose 117 mg/dL (74-106); Magnesium 2.1 mg/dL (1.8-2.4); Potassium 3.4 mmol/L (3.5-5.1); Sodium 143 mmol/L (136-145)
--- NOTE | 2019-08-04 07:14 | PCPN_ITS ---
Date of service: 08/03/19 Time of Service: 17:14 Assessment and Plan Assessment and plan (1) SBO (small bowel obstruction): Status: Acute (2) Vomiting: Status: Resolved (3) Advanced care planning/counseling discussion: Status: Acute Assessment and plan: For the first time in my almost 20 years of knowing this patient he seems to have a grasp on the gravity of what he is going through. He is glad that he has made a step forward but also understands he still remains on the fence. Things could go either way. He is looking forward to the next 3 days to help this to be clarified. He asked me specifically if he went on comfort care if his friends and relatives could come in to see him. I assured him that if he went on comfort care he could have one visit or at a time. I also explained what comfort care was. We would discontinue antibiotics we would discontinue any investigation etc. he was much more interested in finding out if he would be able to eat if he went on comfort care He asked me to come and see him over the next few days to help him to make decisions. I have spent more than 50% of time in counseling with this patient. This document was created by [employer] software. Content was screened for misspellings, grammatical mistakes, etc. I apologize for any problems, but please contact me for further clarification if needed. Subjective Subjective Interval history since last seen: I have seen Brendan, a 59-year-old male with multiple severe comorbidities. Yesterday I came in and talk to him about his small bowel obstruction and his overall condition. At that time he was in a very precarious position of worsening status which could lead to his versus perhaps getting better and return to the [place] [facility] that he is lived in for the last 6+ years. We had talked about the importance of time and seeing how he did He had spoken about prayer and that he is tried to pray but have not been able to. I did ask our dsp engineer Josselin to come and see him. He really likes Josselin and enjoys talking with her. Over the last 24 hours he did start to put some fluid in carrots into his ileostomy. His NG tube has been clamped with little residual and no nausea. We talked about how important these small steps were to him getting better. In the past the NG tube has come in and out in and out due to his whims. Now he is content to leave it in to see how he does Exam Narrative Exam Narrative: Patient is lying in bed. He looks warm. He is afebrile. His blood pressures are elevated to systolic over 200 and diastolic over 100. His nurse is going to give him some hydralazine. He was awaiting my visit and has turned off the TV in anticipation of it He is not tachycardic he is in the high 90s, he has very little airflow in his lungs but sats have been stable Objective Objective Clinical Data: Abnormal lab results 08/03/19 08/03/19 08/04/19 Range/Units 08:50 08:50 06:00 RBC 4.26 L 4.06 L (4.50-6.00) m/cumm Hgb 9.5 L 9.2 L (13.5-17.5) g/dL Hct 32.3 L 31.3 L (40.0-50.0) % MCV 75.8 L 77.1 L (80-95) fL MCH 22.3 L 22.7 L (27.0-33.0) pg MCHC 29.4 L 29.4 L (32.0-36.0) g/dL RDW 19.1 H 19.7 H (11.8-14.1) % Absolute Neutrophils 8.59 H (1.2-6.7) k/cumm Absolute Lymphocytes 0.77 L (1.2-3.4) k/cumm Absolute Monocytes 0.72 H (0.11-0.7) k/cumm Carbon Dioxide 32.9 H (21.0-32.0) mmol/L BUN 34 H (7-18) mg/dL Creatinine 1.31 H (0.70-1.30) mg/dL Glucose 275 H (74-106) mg/dL Vital Signs Temperature 97.3 F L 08/04/19 04:13 Temperature Source Temporal Artery Scan 08/04/19 04:13 Pulse 55 L 08/04/19 06:01 Pulse Rhythm Regular 07/30/19 07:30 Pulse 65 08/04/19 06:01 Respiratory Rate 14 08/04/19 06:01 Respiratory Effort 08/04/19 04:13 Respiratory Depth Shallow 08/04/19 04:13 Respiratory Pattern Tachypnea 08/04/19 04:13 Blood Pressure 153/77 H 08/04/19 06:01 Blood Pressure Mean 97 08/04/19 06:01 Blood Pressure Position Supine 08/04/19 04:13 Pulse Oximetry 100 08/04/19 06:01 Oxygen Delivery Method Bi-pap 08/04/19 04:13 Oxygen Flow Rate 1 08/04/19 04:13 Pain Level 5 08/04/19 05:23 Comment 08/02/19 08:56 Intake & Output 08/03/19 08/03/19 08/04/19 11:59 23:59 11:59 Intake Total 272.000 / 3576.833 3304.833 / 3576.833 440 / 440 Output Total 2250 / 3550 1300 / 3550 1280 / 1280 Balance -1978.000 / 26.833 2004.833 / 26.833 -840 / -840 Weight 244 lb 11.41 oz Intake: IV 272.000 / 3039.833 2767.833 / 3039.833 200 / 200 Oral 537 / 537 240 / 240 Output: Gastric Drainage 1600 / 1600 30 / 30 Right Nare 1600 / 1600 30 / 30 Urine 500 / 1750 1250 / 1750 1250 / 1250 Stool 150 / 200 50 / 200 Other: Urine Color Yellow Yellow Dark Cat Urine Appearance Clear Clear Cloudy Comment Ruiz in place pt has indwelling ruiz cath pt has indwelling ruiz cath Stool Occult Blood Positive Negative Negative Stool Size Large Stool Characteristics Soft Brown Gastric Occult Blood Right Nare Negative Negative Laboratory Results WBC 8.53 k/cumm (4.4-10.8) 08/04/19 06:00 RBC 4.06 m/cumm (4.50-6.00) L 08/04/19 06:00 Hgb 9.2 g/dL (13.5-17.5) L 08/04/19 06:00 Hct 31.3 % (40.0-50.0) L 08/04/19 06:00 MCV 77.1 fL (80-95) L 08/04/19 06:00 MCH 22.7 pg (27.0-33.0) L 08/04/19 06:00 MCHC 29.4 g/dL (32.0-36.0) L 08/04/19 06:00 RDW 19.7 % (11.8-14.1) H 08/04/19 06:00 Plt Count 250 x1000/uL (130-400) 08/04/19 06:00 MPV 9.1 fL (8.0-11.0) 08/04/19 06:00 Immature Gran % 0.9 % 08/04/19 06:00 Neutrophils % 74.3 08/04/19 06:00 Band Neutrophils % Cancelled 08/03/19 06:20 Lymphocytes % 15.1 08/04/19 06:00 Atypical Lymphs % Cancelled 08/03/19 06:20 Monocytes % 8.4 08/04/19 06:00 Eosinophils % 1.2 08/04/19 06:00 Basophils % 0.1 08/04/19 06:00 Metamyelocytes % Cancelled 08/03/19 06:20 Myelocytes % Cancelled 08/03/19 06:20 Promyelocytes % Cancelled 08/03/19 06:20 Absolute Neutrophils 6.33 k/cumm (1.2-6.7) 08/04/19 06:00 Absolute Lymphocytes 1.29 k/cumm (1.2-3.4) 08/04/19 06:00 Absolute Monocytes 0.72 k/cumm (0.11-0.7) H 08/04/19 06:00 Absolute Eosinophils 0.10 k/cumm (0.0-0.7) 08/04/19 06:00 Absolute Basophils 0.01 k/cumm (0.0-0.2) 08/04/19 06:00 Nucleated RBCs Cancelled 08/03/19 06:20 Differential Comment Cancelled 08/03/19 06:20 Other Cell Type Cancelled 08/03/19 06:20 RBC Morphology Cancelled 08/03/19 06:20 Polychromasia Cancelled 08/03/19 06:20 Hypochromasia Cancelled 08/03/19 06:20 Poikilocytosis Cancelled 08/03/19 06:20 Basophilic Stippling Cancelled 08/03/19 06:20 Anisocytosis Cancelled 08/03/19 06:20 Microcytosis Cancelled 08/03/19 06:20 Macrocytosis Cancelled 08/03/19 06:20 Spherocytes Cancelled 08/03/19 06:20 Target Cells Cancelled 08/03/19 06:20 Tear Drop Cells Cancelled 08/03/19 06:20 Ovalocytes Cancelled 08/03/19 06:20 Stomatocytes Cancelled 08/03/19 06:20 [place] Bodies Cancelled 08/03/19 06:20 Sathya Cells Cancelled 08/03/19 06:20 Acanthocytes (Spur) Cancelled 08/03/19 06:20 Schistocytes Cancelled 08/03/19 06:20 ESR 55 mm/hr (1-20) H 07/24/19 18:10 PT 10.9 sec (9.3-11.0) 08/02/19 07:20 INR 1.1 (0.9-1.1) 08/02/19 07:20 APTT 26.4 sec (21.0-31.4) 07/24/19 18:10 ABG Sample Site Left radial 07/30/19 08:30 ABG pH 7.32 (7.35-7.45) L 07/30/19 08:30 ABG pCO2 53 mmHg (34-47) H 07/30/19 08:30 ABG pO2 117 mmHg (83-108) H 07/30/19 08:30 ABG HCO3 27 mmol/L (22-28) 07/30/19 08:30 ABG Total CO2 26 mmol/L (22-29) 07/30/19 08:30 ABG O2 Saturation 99 % (94-98) H 07/30/19 08:30 ABG Base Excess 0.7 mmol/L (-3-3) 07/30/19 08:30 Oxygen Liter Flow 2 L 07/30/19 08:30 Sodium 143 mmol/L (136-145) 08/03/19 08:50 Potassium 3.5 mmol/L (3.5-5.1) 08/03/19 08:50 Chloride 106 mmol/L (98-107) 08/03/19 08:50 Carbon Dioxide 32.9 mmol/L (21.0-32.0) H 08/03/19 08:50 Anion Gap 4.1 mmol/L (3-11) 08/03/19 08:50 BUN 34 mg/dL (7-18) H 08/03/19 08:50 Creatinine 1.31 mg/dL (0.70-1.30) H 08/03/19 08:50 Estimated GFR/1.73 m2 55.81 (mL/min/1.73m2) 08/03/19 08:50 Glucose 275 mg/dL (74-106) H 08/03/19 08:50 Lactate 0.7 mmol/L (0.6-1.4) 07/30/19 15:40 Calcium 8.8 mg/dL (8.5-10.1) 08/03/19 08:50 Phosphorus 2.2 mg/dL (2.6-4.7) L 08/02/19 06:05 Magnesium 2.0 mg/dL (1.8-2.4) 08/03/19 08:50 Iron 42 ug/dL (65-175) L 07/29/19 06:45 TIBC 157 ug/dL (250-450) L 07/29/19 06:45 Transferrin % Sat 27 % (20-55) 07/29/19 06:45 Ferritin 660 ng/mL (26-388) H 07/29/19 06:45 Total Bilirubin 0.6 mg/dL (0.2-1.0) 08/02/19 06:05 AST 17 U/L (15-37) 08/02/19 06:05 ALT 18 U/L (16-63) 08/02/19 06:05 Alkaline Phosphatase 88 U/L (46-116) 08/02/19 06:05 Troponin I < 0.05 ng/mL (<0.06) 08/01/19 12:25 C-Reactive Protein 4.84 mg/dL (0.0-0.3) H 07/26/19 06:45 Total Protein 5.4 g/dL (6.4-8.2) L 08/02/19 06:05 Albumin 2.3 g/dL (3.4-5.0) L 08/02/19 06:05 Prealbumin 25 mg/dL (20-40) 08/02/19 06:05 Tumor Marker AFP <2.5 ng/mL (<8.1) 07/27/19 06:35 Carcinoembryonic Ag 1.5 ng/ml (See Note) 07/26/19 06:45 Procalcitonin 0.5 ng/mL 07/30/19 09:40 TSH 0.28 uIU/mL (0.36-3.74) L 07/24/19 18:10 Free T4 1.20 ng/dL (0.76-1.46) 07/24/19 18:10 Urine Color Yellow (Yellow) 08/02/19 14:10 Urine Clarity Clear (Clear) 08/02/19 14:10 Urine pH 6.5 (5-8) 08/02/19 14:10 Ur Specific Telephone 1.015 (1.005-1.025) 08/02/19 14:10 Urine Protein 100 mg/dL (Negative) H 08/02/19 14:10 Urine Ketones Negative mg/dL (Negative) 08/02/19 14:10 Urine Blood Trace-intact (Negative) H 08/02/19 14:10 Urine Nitrite Negative (Negative) 08/02/19 14:10 Urine Bilirubin Negative (Negative) 08/02/19 14:10 Urine Urobilinogen 0.2 EU/dL (Up TO 0.2) 08/02/19 14:10 Ur Leukocyte Esterase Negative (Negative) 08/02/19 14:10 Urine RBC 0-2 HPF (0-2) 08/02/19 14:10 Urine WBC 5-10 HPF (0-5) 08/02/19 14:10 Ur Epithelial Cells Few HPF (Negative) 08/02/19 14:10 Urine Crystals Negative HPF (Negative) 08/02/19 14:10 Urine Bacteria Few HPF (Negative) 08/02/19 14:10 Urine Casts 0-2 hyaline LPF (Negative) 08/02/19 14:10 Urine Mucus Negative (Negative) 08/02/19 14:10 Urine Other Few transitional (Negative) 08/02/19 14:10 Ur Culture Indicated? Yes 08/02/19 14:10 Urine Glucose 250 mg/dL (Negative) H 08/02/19 14:10 Vancomycin Trough 27.5 ug/mL (10.0-20.0) H* 08/01/19 12:55 c-ANCA Negative (Negative) 07/27/19 06:35 p-ANCA Negative (Negative) 07/27/19 06:35 COVID-19 PCR Negative (Negative) 05/30/20 21:45 Nasopharyn COVID-19 PCR Not Applicable 07/24/19 21:45 Ref Test Perform Site [facility] lab 07/24/19 21:45 Patient ABO/Rh AB Negative 07/25/19 10:55 Antibody Screen Negative 07/25/19 10:55
[2019-08-04] MEDS: Normal Saline Flush 10 ML SYR 20 ML IVP ×2 (08:00→21:01)
[2019-08-04] MEDS: POTASSIUM CHLORIDE 20 MEQ/100 ML BAG 50 MEQ IVPB ×2 (08:00→10:22)
[2019-08-04] MEDS: oxyCODONE 5 MG TAB PO ×2 (08:01→20:59)
[2019-08-04] MEDS: Terazosin 2 MG CAP 4 MG PO ×2 (08:01→21:00)
[2019-08-04] MEDS: Gabapentin 300 MG CAP PO ×3 (08:01→21:01)
[2019-08-04] MEDS: amLODIPine 5 MG TAB 10 MG PO (08:02)
[2019-08-04] MEDS: Pantoprazole 40 MG VIAL IVP (08:02)
--- NOTE | 2019-08-04 08:22 | W.PM.PROGNOT ---
Date of Service Date of service: 08/04/19 Time of Service: 11:19 Assessment and Plan Assessment and plan (1) SBO (small bowel obstruction): Status: Acute Assessment and plan: Improving. Pulling NGT today and advancing diet to clears. SBO could be due to a Crohn's flare/attempt at fistula formation. Per surgery, the patient is not a surgical candidate, should he worsen. Palliative care discussed with the patient that his prognosis right now is uncertain. Will keep in ICU until we know patient can tolerate clears and BP is better controlled. (2) Ventricular escape rhythm: Status: Acute Assessment and plan: Evaluated by cardiology - continue to replete K, hold beta blockers, encourage trilogy. Does not appear to be vagal in etiology. Patient is s[place] [place] No further ischemic workup is indicated at this time. (3) Hypokalemia: Status: Acute Assessment and plan: Replete, monitor. (4) MRSA bacteremia: Status: Acute Assessment and plan: On blood cultures 07/24/2019, cleared on blood cultures on 07/27/2019. Likely source is the decubitous wound (present on admission). Pathology not clearly showing Crohn's. Continue vancomycin x 4 weeks since negative blood cultures. Expected end date is 08/23/2019. no evidence of endocarditis on echo. (5) Decubitus ulcer, stage 4 with infection: Status: Acute Assessment and plan: s/p surgical debridement on and 07/26/2019. Surgical wound cx with MRSA. As above - no clear evidence of fistula formation/Crohn's activity on pathology. Continue wound vac. Continue vancomycin. Continue MVI, vitamin C, zinc supplementation per nutrition. Offload/mobilize as able. (6) ESBL (extended spectrum beta-lactamase) producing bacteria infection: Status: Resolved Assessment and plan: UTI Due to ESBL E. Coli, present on admission, now s/p ruiz. Doing well off meropenem. (7) Vomiting: Status: Resolved Assessment and plan: Due to SBO. Resolved. (8) Adrenal insufficiency: Status: Chronic Assessment and plan: Continue solucortef taper. (9) Acute kidney injury superimposed on chronic kidney disease: Status: Resolved Assessment and plan: Improved post insertion of ruiz catheter and with positive air pressure. We have never seen Brendan with this normal of a Cr. Continue trilogy as it is clearly helping him perfuse his kidneys. Abstating from both IVF and diuretics at this time as starting to take clears. (10) Hyperkalemia: Status: Resolved Assessment and plan: Resolved with treatment of JESUS and adrenal crisis. (11) CAD (coronary artery disease): Status: Chronic Assessment and plan: Neg MPI in 12/2018. No further plans for ischemic workup at this time. (12) Atrial flutter, paroxysmal: Status: Chronic Assessment and plan: In NSR at this time. Continue to monitor on a monitoring coordinator. (13) Diabetes mellitus: Status: Chronic Assessment and plan: Tapering steroids today. Continue basal bolus insulin, adjusting based on steroid dose. Qualifiers: Diabetes mellitus type: type 2 Diabetes mellitus senior living insulin use: with ferry terminal agent use Diabetes mellitus complication status: with neurologic complications Diabetes mellitus complication detail: with polyneuropathy Qualified Code(s): E11.42 - Type 2 diabetes mellitus with diabetic polyneuropathy; Z79.4 - medical terminologist (current) use of insulin (14) History of DVT (deep vein thrombosis): Status: Acute Assessment and plan: S/p IVC filter. Anticoagulation on hold due to bleeding decubitus wound. (15) Bradycardia: Status: Resolved Assessment and plan: Resolved off beta blockers. Continue to monitor. (16) CHF (congestive heart failure): Status: Chronic Assessment and plan: Currently near euvolemic. Holding lasix for today. (17) Hypoventilation associated with obesity syndrome: Status: Chronic Assessment and plan: It is so exciting to see Brendan actually wear the trilogy - his lab values immediately show benefit. Continue to encourage trilogy when asleep. (18) Hypertension: Status: Chronic Assessment and plan: Uncontrolled post resumptions of amlodipine and terazosin. Added PO hydralazine today - will titrate Will try to avoid metoprolol due to bradycardia. Qualifiers: Hypertension type: essential hypertension Qualified Code(s): I10 - Essential (primary) hypertension (19) Ulcer of left lower leg: Status: Chronic Assessment and plan: Continue wound care with Mepilex. Qualifiers: Non-pressure ulcer stage: limited to breakdown of skin Qualified Code(s): L97.921 - Non-pressure chronic ulcer of unspecified part of left lower leg limited to breakdown of skin (20) DVT prophylaxis: Status: Acute Assessment and plan: S/p IVC filter. Chemical treatment/ppx is contraindicated due to the bleeding decubitous wound. (21) Discharge planning issues: Status: Acute Assessment and plan: Full code. Continues to require hospitalization. May be able to transfer out of ICU later today. Subjective Subjective Interval history since last seen: Denies dizziness, chest pain, shortness of breath, nausea, abdominal pain. PVCs, but no runs of ventricular rhythm on monitor overnight. Kept trilogy on overnight. 1 L O2 bleed in. Slept in. Got 8 mg of morphine x 1. Got 2 doses of prn hydralazine overnight. No fever. + large soft brown stool in ostomy with flatus. Feels bloated. No n/v. Diet is being advanced to clears and NGT is about to be pulled out. Exam Narrative Exam Narrative: General: Pleasant obese male, awake, A&Ox3, asking questions HEENT: EOMI, MMM, NGT in - clamped, cushinoid face Heart: RRR, no m/r/g Lungs: CTAB anteriorly Abdomen: soft, + bowel sounds, nontender. Ostomy with stool, flatus. Extremities: +1 BLE edema, unchanged, B chronic venous stasis changes; LLE tibial surface dressed - c/d/, L foot wound dressed, c/d/i. Objective Objective Clinical Data: Abnormal lab results 08/03/19 08/03/19 08/04/19 Range/Units 08:50 08:50 06:00 RBC 4.26 L (4.50-6.00) m/cumm Hgb 9.5 L (13.5-17.5) g/dL Hct 32.3 L (40.0-50.0) % MCV 75.8 L (80-95) fL MCH 22.3 L (27.0-33.0) pg MCHC 29.4 L (32.0-36.0) g/dL RDW 19.1 H (11.8-14.1) % Absolute Neutrophils 8.59 H (1.2-6.7) k/cumm Absolute Lymphocytes 0.77 L (1.2-3.4) k/cumm Absolute Monocytes (0.11-0.7) k/cumm Potassium 3.4 L (3.5-5.1) mmol/L Carbon Dioxide 32.9 H (21.0-32.0) mmol/L BUN 34 H 28 H (7-18) mg/dL Creatinine 1.31 H (0.70-1.30) mg/dL Glucose 275 H 117 H D (74-106) mg/dL 08/04/19 Range/Units 06:00 RBC 4.06 L (4.50-6.00) m/cumm Hgb 9.2 L (13.5-17.5) g/dL Hct 31.3 L (40.0-50.0) % MCV 77.1 L (80-95) fL MCH 22.7 L (27.0-33.0) pg MCHC 29.4 L (32.0-36.0) g/dL RDW 19.7 H (11.8-14.1) % Absolute Neutrophils (1.2-6.7) k/cumm Absolute Lymphocytes (1.2-3.4) k/cumm Absolute Monocytes 0.72 H (0.11-0.7) k/cumm Potassium (3.5-5.1) mmol/L Carbon Dioxide (21.0-32.0) mmol/L BUN (7-18) mg/dL Creatinine (0.70-1.30) mg/dL Glucose (74-106) mg/dL Vital Signs Temperature 36.3 C L 08/04/19 04:13 Temperature Source Temporal Artery Scan 08/04/19 04:13 Pulse 55 L 08/04/19 06:01 Pulse Rhythm Regular 07/30/19 07:30 Pulse 65 08/04/19 06:01 Respiratory Rate 14 08/04/19 06:01 Respiratory Effort 08/04/19 04:13 Respiratory Depth Shallow 08/04/19 04:13 Respiratory Pattern Tachypnea 08/04/19 04:13 Blood Pressure 153/77 H 08/04/19 06:01 Blood Pressure Mean 97 08/04/19 06:01 Blood Pressure Position Supine 08/04/19 04:13 Pulse Oximetry 100 08/04/19 06:01 Oxygen Delivery Method Bi-pap 08/04/19 04:13 Oxygen Flow Rate 1 08/04/19 04:13 Pain Level 5 08/04/19 05:23 Comment 06/08/20 08:56 Intake & Output 08/03/19 08/03/19 08/04/19 11:59 23:59 11:59 Intake Total 272.000 / 3576.833 3304.833 / 3576.833 440 / 440 Output Total 2250 / 3550 1300 / 3550 1680 / 1680 Balance -1978.000 / 26.833 2004.833 / 26.833 -1240 / -1240 Weight 111 kg Intake: IV 272.000 / 3039.833 2767.833 / 3039.833 200 / 200 Oral 537 / 537 240 / 240 Output: Gastric Drainage 1600 / 1600 30 / 30 Right Nare 1600 / 1600 30 / 30 Urine 500 / 1750 1250 / 1750 1500 / 1500 Stool 150 / 200 50 / 200 150 / 150 Other: Urine Color Yellow Yellow Yellow Urine Appearance Clear Clear Clear Comment Ruiz in place pt has indwelling ruiz cath pt has indwelling ruiz cath Stool Occult Blood Positive Negative Negative Stool Size Large Stool Characteristics Soft Brown Gastric Occult Blood Right Nare Negative Negative Laboratory Results WBC 8.53 k/cumm (4.4-10.8) 08/04/19 06:00 RBC 4.06 m/cumm (4.50-6.00) L 08/04/19 06:00 Hgb 9.2 g/dL (13.5-17.5) L 08/04/19 06:00 Hct 31.3 % (40.0-50.0) L 08/04/19 06:00 MCV 77.1 fL (80-95) L 08/04/19 06:00 MCH 22.7 pg (27.0-33.0) L 08/04/19 06:00 MCHC 29.4 g/dL (32.0-36.0) L 08/04/19 06:00 RDW 19.7 % (11.8-14.1) H 08/04/19 06:00 Plt Count 250 x1000/uL (130-400) 08/04/19 06:00 MPV 9.1 fL (8.0-11.0) 08/04/19 06:00 Immature Gran % 0.9 % 08/04/19 06:00 Neutrophils % 74.3 08/04/19 06:00 Band Neutrophils % Cancelled 08/03/19 06:20 Lymphocytes % 15.1 08/04/19 06:00 Atypical Lymphs % Cancelled 08/03/19 06:20 Monocytes % 8.4 08/04/19 06:00 Eosinophils % 1.2 08/04/19 06:00 Basophils % 0.1 08/04/19 06:00 Metamyelocytes % Cancelled 08/03/19 06:20 Myelocytes % Cancelled 08/03/19 06:20 Promyelocytes % Cancelled 08/03/19 06:20 Absolute Neutrophils 6.33 k/cumm (1.2-6.7) 08/04/19 06:00 Absolute Lymphocytes 1.29 k/cumm (1.2-3.4) 08/04/19 06:00 Absolute Monocytes 0.72 k/cumm (0.11-0.7) H 08/04/19 06:00 Absolute Eosinophils 0.10 k/cumm (0.0-0.7) 08/04/19 06:00 Absolute Basophils 0.01 k/cumm (0.0-0.2) 08/04/19 06:00 Nucleated RBCs Cancelled 08/03/19 06:20 Differential Comment Cancelled 08/03/19 06:20 Other Cell Type Cancelled 08/03/19 06:20 RBC Morphology Cancelled 08/03/19 06:20 Polychromasia Cancelled 08/03/19 06:20 Hypochromasia Cancelled 08/03/19 06:20 Poikilocytosis Cancelled 08/03/19 06:20 Basophilic Stippling Cancelled 08/03/19 06:20 Anisocytosis Cancelled 08/03/19 06:20 Microcytosis Cancelled 08/03/19 06:20 Macrocytosis Cancelled 08/03/19 06:20 Spherocytes Cancelled 08/03/19 06:20 Target Cells Cancelled 08/03/19 06:20 Tear Drop Cells Cancelled 08/03/19 06:20 Ovalocytes Cancelled 08/03/19 06:20 Stomatocytes Cancelled 08/03/19 06:20 [place] Bodies Cancelled 08/03/19 06:20 Sathya Cells Cancelled 08/03/19 06:20 Acanthocytes (Spur) Cancelled 08/03/19 06:20 Schistocytes Cancelled 08/03/19 06:20 ESR 55 mm/hr (1-20) H 07/24/19 18:10 PT 10.9 sec (9.3-11.0) 08/02/19 07:20 INR 1.1 (0.9-1.1) 08/02/19 07:20 APTT 26.4 sec (21.0-31.4) 07/24/19 18:10 ABG Sample Site Left radial 07/30/19 08:30 ABG pH 7.32 (7.35-7.45) L 07/30/19 08:30 ABG pCO2 53 mmHg (34-47) H 07/30/19 08:30 ABG pO2 117 mmHg (83-108) H 07/30/19 08:30 ABG HCO3 27 mmol/L (22-28) 07/30/19 08:30 ABG Total CO2 26 mmol/L (22-29) 07/30/19 08:30 ABG O2 Saturation 99 % (94-98) H 07/30/19 08:30 ABG Base Excess 0.7 mmol/L (-3-3) 07/30/19 08:30 Oxygen Liter Flow 2 L 07/30/19 08:30 Sodium 143 mmol/L (136-145) 08/04/19 06:00 Potassium 3.4 mmol/L (3.5-5.1) L 08/04/19 06:00 Chloride 106 mmol/L (98-107) 08/04/19 06:00 Carbon Dioxide 32.0 mmol/L (21.0-32.0) 08/04/19 06:00 Anion Gap 5.0 mmol/L (3-11) 08/04/19 06:00 BUN 28 mg/dL (7-18) H 08/04/19 06:00 Creatinine 1.02 mg/dL (0.70-1.30) 08/04/19 06:00 Estimated GFR/1.73 m2 >= 60.00 (mL/min/1.73m2) 08/04/19 06:00 Glucose 117 mg/dL (74-106) H D 08/04/19 06:00 Lactate 0.7 mmol/L (0.6-1.4) 07/30/19 15:40 Calcium 8.9 mg/dL (8.5-10.1) 08/04/19 06:00 Phosphorus 2.2 mg/dL (2.6-4.7) L 08/02/19 06:05 Magnesium 2.1 mg/dL (1.8-2.4) 08/04/19 06:00 Iron 42 ug/dL (65-175) L 07/29/19 06:45 TIBC 157 ug/dL (250-450) L 07/29/19 06:45 Transferrin % Sat 27 % (20-55) 07/29/19 06:45 Ferritin 660 ng/mL (26-388) H 07/29/19 06:45 Total Bilirubin 0.6 mg/dL (0.2-1.0) 08/02/19 06:05 AST 17 U/L (15-37) 08/02/19 06:05 ALT 18 U/L (16-63) 08/02/19 06:05 Alkaline Phosphatase 88 U/L (46-116) 08/02/19 06:05 Troponin I < 0.05 ng/mL (<0.06) 08/01/19 12:25 C-Reactive Protein 4.84 mg/dL (0.0-0.3) H 07/26/19 06:45 Total Protein 5.4 g/dL (6.4-8.2) L 08/02/19 06:05 Albumin 2.3 g/dL (3.4-5.0) L 08/02/19 06:05 Prealbumin 25 mg/dL (20-40) 08/02/19 06:05 Tumor Marker AFP <2.5 ng/mL (<8.1) 07/27/19 06:35 Carcinoembryonic Ag 1.5 ng/ml (See Note) 07/26/19 06:45 Procalcitonin 0.5 ng/mL 07/30/19 09:40 TSH 0.28 uIU/mL (0.36-3.74) L 07/24/19 18:10 Free T4 1.20 ng/dL (0.76-1.46) 07/24/19 18:10 Urine Color Yellow (Yellow) 08/02/19 14:10 Urine Clarity Clear (Clear) 08/02/19 14:10 Urine pH 6.5 (5-8) 08/02/19 14:10 Ur Specific [place] 1.015 (1.005-1.025) 08/02/19 14:10 Urine Protein 100 mg/dL (Negative) H 08/02/19 14:10 Urine Ketones Negative mg/dL (Negative) 08/02/19 14:10 Urine Blood Trace-intact (Negative) H 08/02/19 14:10 Urine Nitrite Negative (Negative) 08/02/19 14:10 Urine Bilirubin Negative (Negative) 08/02/19 14:10 Urine Urobilinogen 0.2 EU/dL (Up TO 0.2) 08/02/19 14:10 Ur Leukocyte Esterase Negative (Negative) 08/02/19 14:10 Urine RBC 0-2 HPF (0-2) 08/02/19 14:10 Urine WBC 5-10 HPF (0-5) 08/02/19 14:10 Ur Epithelial Cells Few HPF (Negative) 08/02/19 14:10 Urine Crystals Negative HPF (Negative) 08/02/19 14:10 Urine Bacteria Few HPF (Negative) 08/02/19 14:10 Urine Casts 0-2 hyaline LPF (Negative) 08/02/19 14:10 Urine Mucus Negative (Negative) 08/02/19 14:10 Urine Other Few transitional (Negative) 08/02/19 14:10 Ur Culture Indicated? Yes 08/02/19 14:10 Urine Glucose 250 mg/dL (Negative) H 08/02/19 14:10 Vancomycin Trough 27.5 ug/mL (10.0-20.0) H* 08/01/19 12:55 c-ANCA Negative (Negative) 07/27/19 06:35 p-ANCA Negative (Negative) 07/27/19 06:35 COVID-19 PCR Negative (Negative) 07/24/19 21:45 Nasopharyn COVID-19 PCR Not Applicable 07/24/19 21:45 Ref Test Perform Site [facility] 07/24/19 21:45 Patient ABO/Rh AB Negative 07/25/19 10:55 Antibody Screen Negative 07/25/19 10:55
[2019-08-04] MEDS: hydrALAZINE 25 MG TAB PO (08:52)
--- NOTE | 2019-08-04 09:31 | PDOC.CMPRO ---
- If Service Date Differs Date of service: 08/04/19 Time of Service: 13:54 Care Management Progress Note S/O: Brendan was sitting up in bed in the ICU. He was smiling and engaged readily with CM. Brendan stated that he is doing much better. He proudly shared that he is passing flatus and has had a bowel movement. Brendan also discussed the conversation that he had with Dr. Horowitz regarding his goals of care. He understood that he should know by Friday whether or not he is out of the [facility] with this episode of illness. He reiterated that he wants to go back to the [facility] to get stronger so that he will be able to leave at some point and live on his own. He asked how long he would need to remain in the hospital and CM informed him that he was likely to need to be here for quite some time for antibiotic therapy. He expressed disappointment but reassured CM that he likes it here, and that the food is good and he likes the staff, its just that he wants to be closer to discharge.Brendan will likely be able to move to Med-Surg within the next day or so. A: Brendan is a 59 year old man admitted from the [facility] on 07/24/19 with UTI and a sacral ulcer P: Brendan will need fpc IV antibiotic therapy to treat the infected decubitus ulcer he presented with. Since the [facility] is unable to provide this service, he will likely need to transition to SB-1 status at some point. Ultimately, Brendan will return to the [facility] when treatment is complete. CM will continue to support Brendan and his discharge planning concerns and will update his sister as needed.
--- NOTE | 2019-08-04 09:34 | PDOC.CMPRO ---
- If Service Date Differs Date of service: 08/03/19 Time of Service: 11:00 Care Management Progress Note S/O: Brendan remains ICU level of care. CM reviewed patients chart including palliative notes, CM reviewed plan with primary nurse, and Ronnie. [place] continues to provide support which Brendan appreciates and request. His pain per report has been better managed he is asking for medication more often. He will meet with again this afternoon and ongoing to discussion about goals of care. A: Brendan is a 59 year old man admitted from the [facility] on 07/24/19 with UTI and a sacral ulcer P: Brendan will need skilled nursing IV antibiotic therapy to treat the infected decubitus ulcer he presented with. Since the [facility] is unable to provide this service, he will likely need to transition to SB-1 status at some point. Ultimately, Brendan will return to the [facility] when treatment is complete. CM will continue to support Brendan and his discharge planning concerns and will update his sister as needed.
[2019-08-04] MEDS: Hydrocortisone SOD SUC. 100 MG VIAL 50 MG IVP ×2 (10:19→18:17)
--- NOTE | 2019-08-04 11:04 | CHAPLAIN ---
Brendan was talking with his nurse, Ana Maria Monique, [facility], when I visited. He would really like something to eat and talked about this with Ana Maria. He'd also like to have some more tea. After meeting with Dr. Horowitz yesterday, Brendan said he's improving and that the may not as soon as he and Dr. Horowitz talked about. Brendan said again, that he doesn't want to , that he'd like to live to be 89, but if that can't happen he'd like to have at least 5 more years, although he'd really like 10 but he'd take 5. 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
[2019-08-04] MEDS: HYDROmorphone 2 MG/ML VIAL 1 MG IVP (12:06)
[2019-08-04] MEDS: Normal Saline Flush 10 ML SYR IVP ×3 (12:07→22:57)
[2019-08-04] MEDS: VANCOMYCIN 1,000 MG in Normal Saline 250 ML 167 MG IV (14:19)
[2019-08-04] MEDS: hydrALAZINE 25 MG TAB 50 MG PO ×2 (15:02→21:01)
[2019-08-04] MEDS: Protein Nutritional Supplement 16 GM 1 OUNCE PACKET PO ×2 (15:02→20:59)
--- NOTE | 2019-08-04 20:51 | W.PM.PROGNOT ---
Date of Service Date of service: 08/04/19 Time of Service: 12:30 Assessment and Plan Assessment and plan (1) SBO (small bowel obstruction): Status: Acute Assessment and plan: resolving. d/c ngt cl lq. ADAT cont TPN for now (as long as tolerating) for the low alubimin until eating better (2) Ventricular escape rhythm: Status: Acute (3) Junctional (hamzah) bradycardia: Status: Acute (4) Ulcer of left lower leg: Status: Chronic Qualifiers: Non-pressure ulcer stage: limited to breakdown of skin Qualified Code(s): L97.921 - Non-pressure chronic ulcer of unspecified part of left lower leg limited to breakdown of skin (5) Hypoventilation associated with obesity syndrome: Status: Chronic (6) History of DVT (deep vein thrombosis): Status: Acute (7) MRSA bacteremia: Status: Acute (8) Chronic iron deficiency anemia: Status: Acute Assessment and plan: slowly improving (9) Decubitus ulcer of sacral region, stage 4: Status: Acute Assessment and plan: cont wound vac pressure releif mattress PT and OOB as tolerated. supportive care overall progronosis is still poor. Subjective Subjective Interval history since last seen: pt has had NGT clamped adn is tolerating water. He has been having output in his ostomy. Wound actually looks better today. less swelling nad has a few small islands of granulation tissue present. Also looks wet cleaner machine. NO wbc or temps. Exam Eyes Other: no jaundice. no thrush. extremely poor dentition. Cardio Other: chronic a. fib GI Inspection: incision Palpation: ascites Other: no tender. NGT clamped for 12 hrs adn tolerating water. + output from ostomy. no hernias. no ascities Skin Other: wound: [id number] less necrosis and the wound appears clean. 5% granulation tissue. It is down to the periostium of the sacrum/tendons attachments. The maceration around the wound edges is much better (nystatin pwdr and he did receive 4 days of Diflucan). The ouwnd is defn starting to contract. Extrem General: no pedal edema and muscle atrophy Other: joint distortion from chronic RA. Objective Objective Clinical Data: Abnormal lab results 08/04/19 08/04/19 Range/Units 06:00 06:00 RBC 4.06 L (4.50-6.00) m/cumm Hgb 9.2 L (13.5-17.5) g/dL Hct 31.3 L (40.0-50.0) % MCV 77.1 L (80-95) fL MCH 22.7 L (27.0-33.0) pg MCHC 29.4 L (32.0-36.0) g/dL RDW 19.7 H (11.8-14.1) % Absolute Monocytes 0.72 H (0.11-0.7) k/cumm Potassium 3.4 L (3.5-5.1) mmol/L BUN 28 H (7-18) mg/dL Glucose 117 H D (74-106) mg/dL Vital Signs Temperature 35.6 C L 08/04/19 15:06 Temperature Source Temporal Artery Scan 08/04/19 15:06 Pulse 72 08/04/19 19:00 Pulse Rhythm Regular 07/30/19 07:30 Pulse 93 H 08/04/19 19:00 Respiratory Rate 18 08/04/19 19:00 Respiratory Effort 08/04/19 15:06 Respiratory Depth Shallow 08/04/19 15:06 Respiratory Pattern Normal 08/04/19 15:06 Blood Pressure 170/74 H 08/04/19 19:00 Blood Pressure Mean 101 08/04/19 19:00 Blood Pressure Position Supine 08/04/19 15:06 Pulse Oximetry 100 08/04/19 19:00 Oxygen Delivery Method Room Air 08/04/19 15:06 Oxygen Flow Rate 0 08/04/19 15:06 Pain Level 1 08/04/19 15:06 Comment 08/02/19 08:56 Intake & Output 08/03/19 08/04/19 08/04/19 23:59 11:59 23:59 Intake Total 3304.833 / 3576.833 540 / 2280 1740 / 2280 Output Total 1300 / 3550 1680 / 2855 1175 / 2855 Balance 2004.833 / 26.833 -1140 / -575 565 / -575 Weight 111 kg Intake: IV 2767.833 / 3039.833 300 / 750 450 / 750 Oral 537 / 537 240 / 1530 1290 / 1530 Output: Gastric Drainage 30 / 30 Right Nare 30 / 30 Output, Wound Vac (mls) 200 / 200 Urine 1250 / 1750 1500 / 2250 750 / 2250 Stool 50 / 200 150 / 375 225 / 375 Other: Urine Color Yellow Yellow Yellow Urine Appearance Clear Clear Clear Comment pt has indwelling ruiz cath pt has indwelling ruiz cath Ruiz draining clear yellow urine. Stool Occult Blood Negative Negative Negative Stool Size Large Large Stool Characteristics Soft Liquid Brown Brown Gastric Occult Blood Right Nare Negative Laboratory Results WBC 8.53 k/cumm (4.4-10.8) 08/04/19 06:00 RBC 4.06 m/cumm (4.50-6.00) L 08/04/19 06:00 Hgb 9.2 g/dL (13.5-17.5) L 08/04/19 06:00 Hct 31.3 % (40.0-50.0) L 08/04/19 06:00 MCV 77.1 fL (80-95) L 08/04/19 06:00 MCH 22.7 pg (27.0-33.0) L 08/04/19 06:00 MCHC 29.4 g/dL (32.0-36.0) L 08/04/19 06:00 RDW 19.7 % (11.8-14.1) H 08/04/19 06:00 Plt Count 250 x1000/uL (130-400) 08/04/19 06:00 MPV 9.1 fL (8.0-11.0) 08/04/19 06:00 Immature Gran % 0.9 % 08/04/19 06:00 Neutrophils % 74.3 08/04/19 06:00 Band Neutrophils % Cancelled 08/03/19 06:20 Lymphocytes % 15.1 08/04/19 06:00 Atypical Lymphs % Cancelled 08/03/19 06:20 Monocytes % 8.4 08/04/19 06:00 Eosinophils % 1.2 08/04/19 06:00 Basophils % 0.1 08/04/19 06:00 Metamyelocytes % Cancelled 08/03/19 06:20 Myelocytes % Cancelled 08/03/19 06:20 Promyelocytes % Cancelled 08/03/19 06:20 Absolute Neutrophils 6.33 k/cumm (1.2-6.7) 08/04/19 06:00 Absolute Lymphocytes 1.29 k/cumm (1.2-3.4) 08/04/19 06:00 Absolute Monocytes 0.72 k/cumm (0.11-0.7) H 08/04/19 06:00 Absolute Eosinophils 0.10 k/cumm (0.0-0.7) 08/04/19 06:00 Absolute Basophils 0.01 k/cumm (0.0-0.2) 08/04/19 06:00 Nucleated RBCs Cancelled 08/03/19 06:20 Differential Comment Cancelled 08/03/19 06:20 Other Cell Type Cancelled 08/03/19 06:20 RBC Morphology Cancelled 08/03/19 06:20 Polychromasia Cancelled 08/03/19 06:20 Hypochromasia Cancelled 08/03/19 06:20 Poikilocytosis Cancelled 08/03/19 06:20 Basophilic Stippling Cancelled 08/03/19 06:20 Anisocytosis Cancelled 08/03/19 06:20 Microcytosis Cancelled 08/03/19 06:20 Macrocytosis Cancelled 08/03/19 06:20 Spherocytes Cancelled 08/03/19 06:20 Target Cells Cancelled 08/03/19 06:20 Tear Drop Cells Cancelled 08/03/19 06:20 Ovalocytes Cancelled 08/03/19 06:20 Stomatocytes Cancelled 08/03/19 06:20 [place] Bodies Cancelled 08/03/19 06:20 [place] Cells Cancelled 08/03/19 06:20 Acanthocytes (Spur) Cancelled 08/03/19 06:20 Schistocytes Cancelled 08/03/19 06:20 ESR 55 mm/hr (1-20) H 07/24/19 18:10 PT 10.9 sec (9.3-11.0) 08/02/19 07:20 INR 1.1 (0.9-1.1) 08/02/19 07:20 APTT 26.4 sec (21.0-31.4) 07/24/19 18:10 ABG Sample Site Left radial 07/30/19 08:30 ABG pH 7.32 (7.35-7.45) L 07/30/19 08:30 ABG pCO2 53 mmHg (34-47) H 07/30/19 08:30 ABG pO2 117 mmHg (83-108) H 07/30/19 08:30 ABG HCO3 27 mmol/L (22-28) 07/30/19 08:30 ABG Total CO2 26 mmol/L (22-29) 07/30/19 08:30 ABG O2 Saturation 99 % (94-98) H 07/30/19 08:30 ABG Base Excess 0.7 mmol/L (-3-3) 07/30/19 08:30 Oxygen Liter Flow 2 L 07/30/19 08:30 Sodium 143 mmol/L (136-145) 08/04/19 06:00 Potassium 3.4 mmol/L (3.5-5.1) L 08/04/19 06:00 Chloride 106 mmol/L (98-107) 08/04/19 06:00 Carbon Dioxide 32.0 mmol/L (21.0-32.0) 08/04/19 06:00 Anion Gap 5.0 mmol/L (3-11) 08/04/19 06:00 BUN 28 mg/dL (7-18) H 08/04/19 06:00 Creatinine 1.02 mg/dL (0.70-1.30) 08/04/19 06:00 Estimated GFR/1.73 m2 >= 60.00 (mL/min/1.73m2) 08/04/19 06:00 Glucose 117 mg/dL (74-106) H D 08/04/19 06:00 Lactate 0.7 mmol/L (0.6-1.4) 07/30/19 15:40 Calcium 8.9 mg/dL (8.5-10.1) 08/04/19 06:00 Phosphorus 2.2 mg/dL (2.6-4.7) L 08/02/19 06:05 Magnesium 2.1 mg/dL (1.8-2.4) 08/04/19 06:00 Iron 42 ug/dL (65-175) L 07/29/19 06:45 TIBC 157 ug/dL (250-450) L 07/29/19 06:45 Transferrin % Sat 27 % (20-55) 07/29/19 06:45 Ferritin 660 ng/mL (26-388) H 07/29/19 06:45 Total Bilirubin 0.6 mg/dL (0.2-1.0) 08/02/19 06:05 AST 17 U/L (15-37) 08/02/19 06:05 ALT 18 U/L (16-63) 08/02/19 06:05 Alkaline Phosphatase 88 U/L (46-116) 08/02/19 06:05 Troponin I < 0.05 ng/mL (<0.06) 08/01/19 12:25 C-Reactive Protein 4.84 mg/dL (0.0-0.3) H 07/26/19 06:45 Total Protein 5.4 g/dL (6.4-8.2) L 08/02/19 06:05 Albumin 2.3 g/dL (3.4-5.0) L 08/02/19 06:05 Prealbumin 25 mg/dL (20-40) 08/02/19 06:05 Tumor Marker AFP <2.5 ng/mL (<8.1) 07/27/19 06:35 Carcinoembryonic Ag 1.5 ng/ml (See Note) 07/26/19 06:45 Procalcitonin 0.5 ng/mL 07/30/19 09:40 TSH 0.28 uIU/mL (0.36-3.74) L 07/24/19 18:10 Free T4 1.20 ng/dL (0.76-1.46) 07/24/19 18:10 Urine Color Yellow (Yellow) 08/02/19 14:10 Urine Clarity Clear (Clear) 08/02/19 14:10 Urine pH 6.5 (5-8) 08/02/19 14:10 Ur Specific [place] 1.015 (1.005-1.025) 08/02/19 14:10 Urine Protein 100 mg/dL (Negative) H 08/02/19 14:10 Urine Ketones Negative mg/dL (Negative) 08/02/19 14:10 Urine Blood Trace-intact (Negative) H 08/02/19 14:10 Urine Nitrite Negative (Negative) 08/02/19 14:10 Urine Bilirubin Negative (Negative) 08/02/19 14:10 Urine Urobilinogen 0.2 EU/dL (Up TO 0.2) 08/02/19 14:10 Ur Leukocyte Esterase Negative (Negative) 08/02/19 14:10 Urine RBC 0-2 HPF (0-2) 08/02/19 14:10 Urine WBC 5-10 HPF (0-5) 08/02/19 14:10 Ur Epithelial Cells Few HPF (Negative) 08/02/19 14:10 Urine Crystals Negative HPF (Negative) 08/02/19 14:10 Urine Bacteria Few HPF (Negative) 08/02/19 14:10 Urine Casts 0-2 hyaline LPF (Negative) 08/02/19 14:10 Urine Mucus Negative (Negative) 08/02/19 14:10 Urine Other Few transitional (Negative) 08/02/19 14:10 Ur Culture Indicated? Yes 08/02/19 14:10 Urine Glucose 250 mg/dL (Negative) H 08/02/19 14:10 Vancomycin Trough 27.5 ug/mL (10.0-20.0) H* 08/01/19 12:55 c-ANCA Negative (Negative) 07/27/19 06:35 p-ANCA Negative (Negative) 07/27/19 06:35 COVID-19 PCR Negative (Negative) 07/24/19 21:45 Nasopharyn COVID-19 PCR Not Applicable 07/24/19 21:45 Ref Test Perform Site [facility] 07/24/19 21:45 Patient ABO/Rh AB Negative 07/25/19 10:55 Antibody Screen Negative 07/25/19 10:55
[2019-08-04] MEDS: Ascorbic Acid 500 MG TAB 250 MG PO (21:00)
[2019-08-04] MEDS: Levothyroxine 25 MCG TAB 12.5 MCG PO (22:51)
[2019-08-04] MEDS: risperiDONE 0.5 MG TAB 1.5 MG PO (22:52)
[2019-08-04] MEDS: Insulin Glargine 300 UNITS/3 ML PEN 25 UNITS SC (22:53)
[2019-08-04] MEDS: IRON SUCROSE COMPLEX 300 MG in Normal Saline 250 ML 167 MG IVPB (23:30)
[2019-08-05] MEDS: Hydrocortisone SOD SUC. 100 MG VIAL 50 MG IVP ×3 (01:45→18:34)
[2019-08-05] MEDS: Normal Saline Flush 10 ML SYR IVP ×3 (01:47→11:16)
[2019-08-05 03:55] VITALS: BP 180/99; PULSE 54; RESP 18; TEMP 36; O2SAT 100
[2019-08-05] MEDS: Calcium 600mg/Vit D 200U TAB 1 TAB PO ×2 (05:49→18:25)
[2019-08-05] MEDS: ACETAMINOPHEN 1,000 MG/100 ML BTL 400 MG IVPB ×3 (05:49→21:03)
[2019-08-05] MEDS: Insulin Aspart 300 UNITS/3 ML PEN SC ×4 (05:49→21:05)
[2019-08-05 07:04] LABS: Abs Immature Grans 0.08 k/cumm (0.0-0.09); Absolute Eosinophil Count 0.02 k/cumm (0.0-0.7); Absolute Lymphocyte Count 0.54 k/cumm (1.2-3.4); Absolute Monocyte Count 0.56 k/cumm (0.11-0.7); Absolute Neutrophil Count 8.23 k/cumm (1.2-6.7); Eosinophils % 0.2; HCT 30.1 % (40.0-50.0); HGB 9.1 g/dL (13.5-17.5); Immature Grans % 0.8 %; Lymphocytes % 5.7; Mean Corp. HGB Concentration 30.2 g/dL (32.0-36.0); Mean Corpuscular Volume 76.2 fL (80-95); Monocytes % 5.9; Neutrophils % 87.4; Platelet Count 230 x1000/uL (130-400); RBC 3.95 m/cumm (4.50-6.00); RBC Distribution Width 19.2 % (11.8-14.1); White Blood Cell Count 9.43 k/cumm (4.4-10.8)
[2019-08-05 07:26] LABS: Anion Gap 6.3 mmol/L (3-11); BUN 30 mg/dL (7-18); CO2 29.7 mmol/L (21.0-32.0); CREATININE 1.32 mg/dL (0.70-1.30); Calcium 8.7 mg/dL (8.5-10.1); Chloride 101 mmol/L (98-107); Estimated GFR 55.33 (mL/min/1.73m2); Glucose 182 mg/dL (74-106); Lipase 25 U/L (73-393); Magnesium 2.1 mg/dL (1.8-2.4); Potassium 3.6 mmol/L (3.5-5.1); Sodium 137 mmol/L (136-145)
[2019-08-05 07:27] LABS: C-Reactive Protein < 0.05 mg/dL (0.0-0.3)
--- NOTE | 2019-08-05 07:36 | W.PALPGNOTE ---
Date of service: 08/04/19 Time of Service: 11:36 Assessment and Plan Assessment and plan (1) SBO (small bowel obstruction): Status: Acute (2) Junctional (hamzah) bradycardia: Status: Acute (3) Advanced care planning/counseling discussion: Status: Acute Assessment and plan: Brendan and I spoke for some time about moving in the right direction. He is back to his delusion that he is well. We discussed COLST and he is not interested in altering or changing. He remains FULL CODE. I have spent more than 50% of time in counseling with this patient. This document was created by [employer] software. Content was screened for misspellings, grammatical mistakes, etc. I apologize for any problems, but please contact me for further clarification if needed. Subjective Subjective Interval history since last seen: Brendan is doing much better. He is feeling better, no nausea, NGT removed, gas is forming. He feels he has turned the corner and will get well. (He understands get well means continue to be treated for RA, Chrohns, DM, HTN, arrhymias, ileostomy, chronic UTI's and live in a longterm and requires 24/7 care for most of his ADL) Per Dr Canela, she feels his recovery is due to the Trilogy perfusing his kidneys, etc. Brendan is reluctant to use the Trilogy. Exam Narrative Exam Narrative: Lying in bed, needs help to turn on side. Has a wound in his sacral region - wound vac just changed. Heart rate controlled presently. BP more stable. Lungs - little air flow; abdomen not as tender. ioliostomy bag is full, lots of gas. Objective Objective Clinical Data: Abnormal lab results 08/05/19 08/05/19 Range/Units 06:30 06:30 RBC 3.95 L (4.50-6.00) m/cumm Hgb 9.1 L (13.5-17.5) g/dL Hct 30.1 L (40.0-50.0) % MCV 76.2 L (80-95) fL MCH 23.0 L (27.0-33.0) pg MCHC 30.2 L (32.0-36.0) g/dL RDW 19.2 H (11.8-14.1) % Absolute Neutrophils 8.23 H (1.2-6.7) k/cumm Absolute Lymphocytes 0.54 L (1.2-3.4) k/cumm BUN 30 H (7-18) mg/dL Creatinine 1.32 H (0.70-1.30) mg/dL Glucose 182 H (74-106) mg/dL Vital Signs Temperature 96.8 F L 08/05/19 03:55 Temperature Source Tympanic 08/05/19 03:55 Pulse 54 L 08/05/19 03:55 Pulse Rhythm Irregular 08/04/19 22:30 Pulse 86 08/04/19 20:04 Respiratory Rate 18 08/05/19 03:55 Respiratory Effort Non-Labored 08/04/19 22:30 Respiratory Depth Normal 08/04/19 22:30 Respiratory Pattern Normal 08/04/19 22:30 Blood Pressure 180/99 H 08/05/19 03:55 Blood Pressure Mean 109 08/04/19 20:04 Blood Pressure Position Supine 08/04/19 15:06 Pulse Oximetry 100 08/05/19 03:55 Oxygen Delivery Method Cpap 08/05/19 03:55 Oxygen Flow Rate 1 08/05/19 03:55 Pain Level 1 08/05/19 03:55 Comment 08/02/19 08:56 Intake & Output 08/04/19 08/04/19 08/05/19 11:59 23:59 11:59 Intake Total 540 / 2380 1840 / 2380 Output Total 1680 / 3170 1490 / 3170 700 / 700 Balance -1140 / -790 350 / -790 -700 / -700 Weight 244 lb 11.41 oz Intake: IV 300 / 850 550 / 850 Oral 240 / 1530 1290 / 1530 Output: Gastric Drainage 30 / 30 Right Nare 30 / 30 Output, Wound Vac (mls) 200 / 200 Urine 1500 / 2390 890 / 2390 450 / 450 Stool 150 / 550 400 / 550 250 / 250 Other: Urine Color Yellow Pale Straw Yellow Urine Appearance Clear Clear Clear Comment pt has indwelling ruiz cath Ruiz draining clear yellow urine. Stool Occult Blood Negative Negative Stool Size Large Large Stool Characteristics Soft Liquid Brown Brown Gastric Occult Blood Right Nare Negative Laboratory Results WBC 9.43 k/cumm (4.4-10.8) 08/05/19 06:30 RBC 3.95 m/cumm (4.50-6.00) L 08/05/19 06:30 Hgb 9.1 g/dL (13.5-17.5) L 08/05/19 06:30 Hct 30.1 % (40.0-50.0) L 08/05/19 06:30 MCV 76.2 fL (80-95) L 08/05/19 06:30 MCH 23.0 pg (27.0-33.0) L 08/05/19 06:30 MCHC 30.2 g/dL (32.0-36.0) L 08/05/19 06:30 RDW 19.2 % (11.8-14.1) H 08/05/19 06:30 Plt Count 230 x1000/uL (130-400) 08/05/19 06:30 MPV 10.0 fL (8.0-11.0) 08/05/19 06:30 Immature Gran % 0.8 % 08/05/19 06:30 Neutrophils % 87.4 08/05/19 06:30 Band Neutrophils % Cancelled 08/03/19 06:20 Lymphocytes % 5.7 08/05/19 06:30 Atypical Lymphs % Cancelled 08/03/19 06:20 Monocytes % 5.9 08/05/19 06:30 Eosinophils % 0.2 08/05/19 06:30 Basophils % 0.0 08/05/19 06:30 Metamyelocytes % Cancelled 08/03/19 06:20 Myelocytes % Cancelled 08/03/19 06:20 Promyelocytes % Cancelled 08/03/19 06:20 Absolute Neutrophils 8.23 k/cumm (1.2-6.7) H 08/05/19 06:30 Absolute Lymphocytes 0.54 k/cumm (1.2-3.4) L 08/05/19 06:30 Absolute Monocytes 0.56 k/cumm (0.11-0.7) 08/05/19 06:30 Absolute Eosinophils 0.02 k/cumm (0.0-0.7) 08/05/19 06:30 Absolute Basophils 0.00 k/cumm (0.0-0.2) 08/05/19 06:30 Nucleated RBCs Cancelled 08/03/19 06:20 Differential Comment Cancelled 08/03/19 06:20 Other Cell Type Cancelled 08/03/19 06:20 RBC Morphology Cancelled 08/03/19 06:20 Polychromasia Cancelled 08/03/19 06:20 Hypochromasia Cancelled 08/03/19 06:20 Poikilocytosis Cancelled 08/03/19 06:20 Basophilic Stippling Cancelled 08/03/19 06:20 Anisocytosis Cancelled 08/03/19 06:20 Microcytosis Cancelled 08/03/19 06:20 Macrocytosis Cancelled 08/03/19 06:20 Spherocytes Cancelled 08/03/19 06:20 Target Cells Cancelled 08/03/19 06:20 Tear Drop Cells Cancelled 08/03/19 06:20 Ovalocytes Cancelled 08/03/19 06:20 Stomatocytes Cancelled 08/03/19 06:20 [place] Bodies Cancelled 08/03/19 06:20 [place]athya Cells Cancelled 08/03/19 06:20 Acanthocytes (Spur) Cancelled 08/03/19 06:20 Schistocytes Cancelled 08/03/19 06:20 ESR 55 mm/hr (1-20) H 07/24/19 18:10 PT 10.9 sec (9.3-11.0) 08/02/19 07:20 INR 1.1 (0.9-1.1) 08/02/19 07:20 APTT 26.4 sec (21.0-31.4) 07/24/19 18:10 ABG Sample Site Left radial 07/30/19 08:30 ABG pH 7.32 (7.35-7.45) L 07/30/19 08:30 ABG pCO2 53 mmHg (34-47) H 07/30/19 08:30 ABG pO2 117 mmHg (83-108) H 07/30/19 08:30 ABG HCO3 27 mmol/L (22-28) 07/30/19 08:30 ABG Total CO2 26 mmol/L (22-29) 07/30/19 08:30 ABG O2 Saturation 99 % (94-98) H 07/30/19 08:30 ABG Base Excess 0.7 mmol/L (-3-3) 07/30/19 08:30 Oxygen Liter Flow 2 L 07/30/19 08:30 Sodium 137 mmol/L (136-145) 08/05/19 06:30 Potassium 3.6 mmol/L (3.5-5.1) 08/05/19 06:30 Chloride 101 mmol/L (98-107) 08/05/19 06:30 Carbon Dioxide 29.7 mmol/L (21.0-32.0) 08/05/19 06:30 Anion Gap 6.3 mmol/L (3-11) 08/05/19 06:30 BUN 30 mg/dL (7-18) H 08/05/19 06:30 Creatinine 1.32 mg/dL (0.70-1.30) H 08/05/19 06:30 Estimated GFR/1.73 m2 55.33 (mL/min/1.73m2) 08/05/19 06:30 Glucose 182 mg/dL (74-106) H 08/05/19 06:30 Lactate 0.7 mmol/L (0.6-1.4) 07/30/19 15:40 Calcium 8.7 mg/dL (8.5-10.1) 08/05/19 06:30 Phosphorus 2.2 mg/dL (2.6-4.7) L 08/02/19 06:05 Magnesium 2.1 mg/dL (1.8-2.4) 08/05/19 06:30 Iron 42 ug/dL (65-175) L 07/29/19 06:45 TIBC 157 ug/dL (250-450) L 07/29/19 06:45 Transferrin % Sat 27 % (20-55) 07/29/19 06:45 Ferritin 660 ng/mL (26-388) H 07/29/19 06:45 Total Bilirubin 0.6 mg/dL (0.2-1.0) 08/02/19 06:05 AST 17 U/L (15-37) 08/02/19 06:05 ALT 18 U/L (16-63) 08/02/19 06:05 Alkaline Phosphatase 88 U/L (46-116) 08/02/19 06:05 Troponin I < 0.05 ng/mL (<0.06) 08/01/19 12:25 C-Reactive Protein < 0.05 mg/dL (0.0-0.3) 08/05/19 06:30 Total Protein 5.4 g/dL (6.4-8.2) L 08/02/19 06:05 Albumin 2.3 g/dL (3.4-5.0) L 08/02/19 06:05 Prealbumin 25 mg/dL (20-40) 08/02/19 06:05 Lipase 25 U/L (73-393) 08/05/19 06:30 Tumor Marker AFP <2.5 ng/mL (<8.1) 07/27/19 06:35 Carcinoembryonic Ag 1.5 ng/ml (See Note) 07/26/19 06:45 Procalcitonin 0.5 ng/mL 07/30/19 09:40 TSH 0.28 uIU/mL (0.36-3.74) L 07/24/19 18:10 Free T4 1.20 ng/dL (0.76-1.46) 07/24/19 18:10 Urine Color Yellow (Yellow) 08/02/19 14:10 Urine Clarity Clear (Clear) 08/02/19 14:10 Urine pH 6.5 (5-8) 08/02/19 14:[address] [place] 1.015 (1.005-1.025) 08/02/19 14:10 Urine Protein 100 mg/dL (Negative) H 08/02/19 14:10 Urine Ketones Negative mg/dL (Negative) 08/02/19 14:10 Urine Blood Trace-intact (Negative) H 08/02/19 14:10 Urine Nitrite Negative (Negative) 08/02/19 14:10 Urine Bilirubin Negative (Negative) 08/02/19 14:10 Urine Urobilinogen 0.2 EU/dL (Up TO 0.2) 08/02/19 14:10 Ur Leukocyte Esterase Negative (Negative) 08/02/19 14:10 Urine RBC 0-2 HPF (0-2) 08/02/19 14:10 Urine WBC 5-10 HPF (0-5) 08/02/19 14:10 Ur Epithelial Cells Few HPF (Negative) 08/02/19 14:10 Urine Crystals Negative HPF (Negative) 08/02/19 14:10 Urine Bacteria Few HPF (Negative) 08/02/19 14:10 Urine Casts 0-2 hyaline LPF (Negative) 08/02/19 14:10 Urine Mucus Negative (Negative) 08/02/19 14:10 Urine Other Few transitional (Negative) 08/02/19 14:10 Ur Culture Indicated? Yes 08/02/19 14:10 Urine Glucose 250 mg/dL (Negative) H 08/02/19 14:10 Vancomycin Trough 27.5 ug/mL (10.0-20.0) H* 08/01/19 12:55 c-ANCA Negative (Negative) 07/27/19 06:35 p-ANCA Negative (Negative) 07/27/19 06:35 COVID-19 PCR Negative (Negative) 07/24/19 21:45 Nasopharyn COVID-19 PCR Not Applicable 07/24/19 21:45 Ref Test Perform Site [facility] lab 07/24/19 21:45 Patient ABO/Rh AB Negative 07/25/19 10:55 Antibody Screen Negative 07/25/19 10:55
[2019-08-05 07:42] LABS: Procalcitonin 0.1 ng/mL
[2019-08-05 08:11] VITALS: BP 159/60; PULSE 53; RESP 20; TEMP 36.2; O2SAT 100
--- NOTE | 2019-08-05 08:36 | CMPROGNOTE_ITS ---
- If Service Date Differs Date of service: 08/05/19 Time of Service: 08:36 Care Management Progress Note S/O: Brendan was sitting up in bed when CM came to see him. He was smiling and stated that he is feeling better and is happy to be out of ICU and on Med-Surg. Brendan shared that he has very little discomfort today and feels that he is improving. He verbalized again that Dr. Horowitz told him he would know if he is out of the [facility] tomorrow. Brendan has been making calls to various family members, reconnecting. Brendan's SBO has resolved and his diet has been advanced to a regular (diabetic) diet, which he admitted he is very pleased about. He said he ordered beef stew for lunch but what he really wanted was a cheeseburger. A: Brendan is a 59 year old man admitted from the [facility] on 07/24/19 with UTI and a sacral ulcer P: Brendan will need assisted IV antibiotic therapy to treat the infected de cubitus ulcer he presented with. Since the [facility] is unable to provide this service, he will likely need to transition to SB-1 status at some point. Ultimately, Brendan will return to the [facility] when treatment is complete. CM will continue to support Brendan and his discharge planning concerns and will update his sister as needed.
--- NOTE | 2019-08-05 08:52 | W.PM.PROGNOT ---
Date of Service Date of service: 08/05/19 Time of Service: 08:52 Assessment and Plan Assessment and plan (1) SBO (small bowel obstruction): Status: Acute Assessment and plan: this appears to be resolved. diabetic diet as tolerated per dental limitation physical therapy as pt is able to tolerate from RA standpoint. no limitations on activity from wound standpoint. no signs of mfalig or developing fistula. WIll cont to observe for fistula. tissue neg for malig. (2) History of DVT (deep vein thrombosis): Status: Acute Assessment and plan: pt can resume full- anti-coag from sx standpoint was being held for bleeding from wound and than poss need for surgery from SBO. this appears to have resolved (3) MRSA bacteremia: Status: Acute (4) Decubitus ulcer, stage 4 with infection: Status: Acute Assessment and plan: -4 wks iv vanco from ID standpoint. D# 12/30days Subjective Subjective Interval history since last seen: pt appears to be back to his baseline at this point. He is non ambulatory adn won't much participate in PT or self cares. Eating is his main objective. He denies pain in his posterior. He does not get up in a chair. He denies cough. He is tolerating his clears well and would like solid food. Mentation appears to be baseline. He his off telemetry and VS have been stable and no temps. He does not appear to require surgery for SBO at this time and had no signif bleeding w/ last vac and does nt look like he will require debridment at time soon. Exam HENMT Other: No jaundice. No eye pain. Next Extremely poor dentition but no signs of acute abscesses. No sinus pain. Cardio Other: Chronic A. fib rate controlled. Lungs are clear to auscultation GI Other: Incision is well-healed. No obvious hernia deformity. He has good bowel sounds. He has no pain. His ostomy is pink healthy patent and productive. He is putting effluent into his ostomy bag Extrem Other: Significant deformity of his extremities from chronic RA. The wound on the left lower extremity is essentially healed. He has an ulcer on the bottom of his left foot that is 0.75 x 0.75 cm. Is clean. Again this is healing well. He has been wound VAC in place the sacral wound. We will change this on Friday. It is functioning PEG site shows no redness or drainage and is functioning well. Objective Objective Clinical Data: Abnormal lab results 08/05/19 08/05/19 Range/Units 06:30 06:30 RBC 3.95 L (4.50-6.00) m/cumm Hgb 9.1 L (13.5-17.5) g/dL Hct 30.1 L (40.0-50.0) % MCV 76.2 L (80-95) fL MCH 23.0 L (27.0-33.0) pg MCHC 30.2 L (32.0-36.0) g/dL RDW 19.2 H (11.8-14.1) % Absolute Neutrophils 8.23 H (1.2-6.7) k/cumm Absolute Lymphocytes 0.54 L (1.2-3.4) k/cumm BUN 30 H (7-18) mg/dL Creatinine 1.32 H (0.70-1.30) mg/dL Glucose 182 H (74-106) mg/dL Vital Signs Temperature 36.2 C L 08/05/19 08:11 Temperature Source Tympanic 08/05/19 08:11 Pulse 53 L 08/05/19 08:11 Pulse Rhythm Irregular 08/04/19 22:30 Pulse 86 08/04/19 20:04 Respiratory Rate 20 08/05/19 08:11 Respiratory Effort Non-Labored 08/04/19 22:30 Respiratory Depth Normal 08/04/19 22:30 Respiratory Pattern Normal 08/04/19 22:30 Blood Pressure 159/60 H 08/05/19 08:11 Blood Pressure Mean 109 08/04/19 20:04 Blood Pressure Position Supine 08/04/19 15:06 Pulse Oximetry 100 08/05/19 08:11 Oxygen Delivery Method Cpap 08/05/19 08:11 Oxygen Flow Rate 1 08/05/19 03:55 Pain Level 2 08/05/19 08:11 Comment 08/02/19 08:56 Intake & Output 08/04/19 08/04/19 08/05/19 11:59 23:59 11:59 Intake Total 540 / 2380 1840 / 2380 Output Total 1680 / 3170 1490 / 3170 700 / 700 Balance -1140 / -790 350 / -790 -700 / -700 Weight 111 kg Intake: IV 300 / 850 550 / 850 Oral 240 / 1530 1290 / 1530 Output: Gastric Drainage 30 / 30 Right Nare 30 / 30 Output, Wound Vac (mls) 200 / 200 Urine 1500 / 2390 890 / 2390 450 / 450 Stool 150 / 550 400 / 550 250 / 250 Other: Urine Color Yellow Pale Straw Yellow Urine Appearance Clear Clear Clear Comment pt has indwelling ruiz cath Ruiz draining clear yellow urine. Stool Occult Blood Negative Negative Stool Size Large Large Stool Characteristics Soft Liquid Brown Brown Gastric Occult Blood Right Nare Negative Laboratory Results WBC 9.43 k/cumm (4.4-10.8) 08/05/19 06:30 RBC 3.95 m/cumm (4.50-6.00) L 08/05/19 06:30 Hgb 9.1 g/dL (13.5-17.5) L 08/05/19 06:30 Hct 30.1 % (40.0-50.0) L 08/05/19 06:30 MCV 76.2 fL (80-95) L 08/05/19 06:30 MCH 23.0 pg (27.0-33.0) L 08/05/19 06:30 MCHC 30.2 g/dL (32.0-36.0) L 08/05/19 06:30 RDW 19.2 % (11.8-14.1) H 08/05/19 06:30 Plt Count 230 x1000/uL (130-400) 08/05/19 06:30 MPV 10.0 fL (8.0-11.0) 08/05/19 06:30 Immature Gran % 0.8 % 08/05/19 06:30 Neutrophils % 87.4 08/05/19 06:30 Band Neutrophils % Cancelled 08/03/19 06:20 Lymphocytes % 5.7 08/05/19 06:30 Atypical Lymphs % Cancelled 08/03/19 06:20 Monocytes % 5.9 08/05/19 06:30 Eosinophils % 0.2 08/05/19 06:30 Basophils % 0.0 08/05/19 06:30 Metamyelocytes % Cancelled 08/03/19 06:20 Myelocytes % Cancelled 08/03/19 06:20 Promyelocytes % Cancelled 08/03/19 06:20 Absolute Neutrophils 8.23 k/cumm (1.2-6.7) H 08/05/19 06:30 Absolute Lymphocytes 0.54 k/cumm (1.2-3.4) L 08/05/19 06:30 Absolute Monocytes 0.56 k/cumm (0.11-0.7) 08/05/19 06:30 Absolute Eosinophils 0.02 k/cumm (0.0-0.7) 08/05/19 06:30 Absolute Basophils 0.00 k/cumm (0.0-0.2) 08/05/19 06:30 Nucleated RBCs Cancelled 08/03/19 06:20 Differential Comment Cancelled 08/03/19 06:20 Other Cell Type Cancelled 08/03/19 06:20 RBC Morphology Cancelled 08/03/19 06:20 Polychromasia Cancelled 08/03/19 06:20 Hypochromasia Cancelled 08/03/19 06:20 Poikilocytosis Cancelled 08/03/19 06:20 Basophilic Stippling Cancelled 08/03/19 06:20 Anisocytosis Cancelled 08/03/19 06:20 Microcytosis Cancelled 08/03/19 06:20 Macrocytosis Cancelled 08/03/19 06:20 Spherocytes Cancelled 08/03/19 06:20 Target Cells Cancelled 08/03/19 06:20 Tear Drop Cells Cancelled 08/03/19 06:20 Ovalocytes Cancelled 08/03/19 06:20 Stomatocytes Cancelled 08/03/19 06:20 [place] Bodies Cancelled 08/03/19 06:20 [place] Cells Cancelled 08/03/19 06:20 Acanthocytes (Spur) Cancelled 08/03/19 06:20 Schistocytes Cancelled 08/03/19 06:20 ESR 55 mm/hr (1-20) H 07/24/19 18:10 PT 10.9 sec (9.3-11.0) 08/02/19 07:20 INR 1.1 (0.9-1.1) 08/02/19 07:20 APTT 26.4 sec (21.0-31.4) 07/24/19 18:10 ABG Sample Site Left radial 07/30/19 08:30 ABG pH 7.32 (7.35-7.45) L 07/30/19 08:30 ABG pCO2 53 mmHg (34-47) H 07/30/19 08:30 ABG pO2 117 mmHg (83-108) H 07/30/19 08:30 ABG HCO3 27 mmol/L (22-28) 07/30/19 08:30 ABG Total CO2 26 mmol/L (22-29) 07/30/19 08:30 ABG O2 Saturation 99 % (94-98) H 07/30/19 08:30 ABG Base Excess 0.7 mmol/L (-3-3) 07/30/19 08:30 Oxygen Liter Flow 2 L 07/30/19 08:30 Sodium 137 mmol/L (136-145) 08/05/19 06:30 Potassium 3.6 mmol/L (3.5-5.1) 08/05/19 06:30 Chloride 101 mmol/L (98-107) 08/05/19 06:30 Carbon Dioxide 29.7 mmol/L (21.0-32.0) 08/05/19 06:30 Anion Gap 6.3 mmol/L (3-11) 08/05/19 06:30 BUN 30 mg/dL (7-18) H 08/05/19 06:30 Creatinine 1.32 mg/dL (0.70-1.30) H 08/05/19 06:30 Estimated GFR/1.73 m2 55.33 (mL/min/1.73m2) 08/05/19 06:30 Glucose 182 mg/dL (74-106) H 08/05/19 06:30 Lactate 0.7 mmol/L (0.6-1.4) 07/30/19 15:40 Calcium 8.7 mg/dL (8.5-10.1) 08/05/19 06:30 Phosphorus 2.2 mg/dL (2.6-4.7) L 08/02/19 06:05 Magnesium 2.1 mg/dL (1.8-2.4) 08/05/19 06:30 Iron 42 ug/dL (65-175) L 07/29/19 06:45 TIBC 157 ug/dL (250-450) L 07/29/19 06:45 Transferrin % Sat 27 % (20-55) 07/29/19 06:45 Ferritin 660 ng/mL (26-388) H 07/29/19 06:45 Total Bilirubin 0.6 mg/dL (0.2-1.0) 08/02/19 06:05 AST 17 U/L (15-37) 08/02/19 06:05 ALT 18 U/L (16-63) 08/02/19 06:05 Alkaline Phosphatase 88 U/L (46-116) 08/02/19 06:05 Troponin I < 0.05 ng/mL (<0.06) 08/01/19 12:25 C-Reactive Protein < 0.05 mg/dL (0.0-0.3) 08/05/19 06:30 Total Protein 5.4 g/dL (6.4-8.2) L 08/02/19 06:05 Albumin 2.3 g/dL (3.4-5.0) L 08/02/19 06:05 Prealbumin 25 mg/dL (20-40) 08/02/19 06:05 Lipase 25 U/L (73-393) 08/05/19 06:30 Tumor Marker AFP <2.5 ng/mL (<8.1) 07/27/19 06:35 Carcinoembryonic Ag 1.5 ng/ml (See Note) 07/26/19 06:45 Procalcitonin 0.1 ng/mL 08/05/19 06:30 TSH 0.28 uIU/mL (0.36-3.74) L 07/24/19 18:10 Free T4 1.20 ng/dL (0.76-1.46) 07/24/19 18:10 Urine Color Yellow (Yellow) 08/02/19 14:10 Urine Clarity Clear (Clear) 08/02/19 14:10 Urine pH 6.5 (5-8) 08/02/19 14:10 Ur Specific [place] 1.015 (1.005-1.025) 08/02/19 14:10 Urine Protein 100 mg/dL (Negative) H 08/02/19 14:10 Urine Ketones Negative mg/dL (Negative) 08/02/19 14:10 Urine Blood Trace-intact (Negative) H 08/02/19 14:10 Urine Nitrite Negative (Negative) 08/02/19 14:10 Urine Bilirubin Negative (Negative) 08/02/19 14:10 Urine Urobilinogen 0.2 EU/dL (Up TO 0.2) 08/02/19 14:10 Ur Leukocyte Esterase Negative (Negative) 08/02/19 14:10 Urine RBC 0-2 HPF (0-2) 08/02/19 14:10 Urine WBC 5-10 HPF (0-5) 08/02/19 14:10 Ur Epithelial Cells Few HPF (Negative) 08/02/19 14:10 Urine Crystals Negative HPF (Negative) 08/02/19 14:10 Urine Bacteria Few HPF (Negative) 08/02/19 14:10 Urine Casts 0-2 hyaline LPF (Negative) 08/02/19 14:10 Urine Mucus Negative (Negative) 08/02/19 14:10 Urine Other Few transitional (Negative) 08/02/19 14:10 Ur Culture Indicated? Yes 08/02/19 14:10 Urine Glucose 250 mg/dL (Negative) H 08/02/19 14:10 Vancomycin Trough 27.5 ug/mL (10.0-20.0) H* 08/01/19 12:55 c-ANCA Negative (Negative) 07/27/19 06:35 p-ANCA Negative (Negative) 07/27/19 06:35 COVID-19 PCR Negative (Negative) 07/24/19 21:45 Nasopharyn COVID-19 PCR Not Applicable 07/24/19 21:45 Ref Test Perform Site [facility] lab 07/24/19 21:45 Patient ABO/Rh AB Negative 07/25/19 10:55 Antibody Screen Negative 07/25/19 10:55
[2019-08-05] MEDS: Ascorbic Acid 500 MG TAB 250 MG PO ×2 (09:04→21:00)
[2019-08-05] MEDS: Gabapentin 300 MG CAP PO ×3 (09:04→21:00)
[2019-08-05] MEDS: hydrALAZINE 25 MG TAB 50 MG PO ×4 (09:04→21:01)
[2019-08-05] MEDS: amLODIPine 5 MG TAB 10 MG PO (09:04)
[2019-08-05] MEDS: Normal Saline Flush 10 ML SYR 20 ML IVP (09:04)
[2019-08-05] MEDS: Pantoprazole 40 MG VIAL IVP (09:05)
[2019-08-05] MEDS: Protein Nutritional Supplement 16 GM 1 OUNCE PACKET PO ×3 (09:05→20:58)
[2019-08-05] MEDS: Terazosin 2 MG CAP 4 MG PO ×2 (09:05→20:59)
[2019-08-05] MEDS: Enoxaparin 120 MG/0.8 ML SYR 110 MG SC ×2 (11:15→20:58)
[2019-08-05 11:48] VITALS: BP 156/89; PULSE 79; RESP 20; TEMP 36.8; O2SAT 100
[2019-08-05 12:05] LABS: Vancomycin, Trough 17.4 ug/mL (10.0-20.0)
[2019-08-05] MEDS: VANCOMYCIN 1,000 MG in Normal Saline 250 ML 167 MG IV (13:04)
[2019-08-05 15:25] VITALS: BP 149/95; PULSE 81; RESP 19; TEMP 36; O2SAT 98
--- NOTE | 2019-08-05 15:54 | PGE_ITS ---
Date of Service Date of service: 08/05/19 Time of Service: 15:55 Assessment and Plan Assessment and plan (1) SBO (small bowel obstruction): Status: Resolved Assessment and plan: Diet advanced to regular - tolerating Per surgery, the patient is not a surgical candidate, should he worsen. Palliative care discussed with the patient that his prognosis right now is uncertain. Transferred to [facility] floor yesterday - doing well. (2) Ventricular escape rhythm: Status: Acute Assessment and plan: Evaluated by cardiology - felt to be benign and a reflection of electrolyte abnormalities/JESSICA. Tele d/c'ed. Patient is s/p negative MPI in 12/2018 ([facility] [place]). No further ischemic workup is indicated at this time. (3) Hypokalemia: Status: Acute Assessment and plan: Replete, monitor. (4) MRSA bacteremia: Status: Acute Assessment and plan: On blood cultures 07/24/2019, cleared on blood cultures on 07/27/2019. Likely source is the decubitous wound (present on admission). Pathology not clearly showing Crohn's. Continue vancomycin x 4 weeks since negative blood cultures. Expected end date is 08/23/2019. no evidence of endocarditis on echo. (5) Decubitus ulcer, stage 4 with infection: Status: Acute Assessment and plan: s/p surgical debridement on and 07/26/2019. Surgical wound cx with MRSA. As above - no clear evidence of fistula formation/Crohn's activity on pathology. Continue wound vac. Continue vancomycin. Continue MVI, vitamin C, zinc supplementation per nutrition. Offload/mobilize as able. (6) ESBL (extended spectrum beta-lactamase) producing bacteria infection: Status: Resolved Assessment and plan: UTI Due to ESBL E. Coli, present on admission, now s/p ruiz. Doing well off meropenem. (7) Vomiting: Status: Resolved Assessment and plan: Due to SBO. Resolved. (8) Adrenal insufficiency: Status: Chronic Assessment and plan: Continue solucortef taper. (9) Acute kidney injury superimposed on chronic kidney disease: Status: Resolved Assessment and plan: Improved post insertion of ruiz catheter and with positive air pressure. We have never seen Brendan with this normal of a Cr. Continue trilogy as it is clearly helping him perfuse his kidneys. Abstating from both IVF and diuretics at this time as starting to take clears. (10) Hyperkalemia: Status: Resolved Assessment and plan: Resolved with treatment of JESUS and adrenal crisis. (11) CAD (coronary artery disease): Status: Chronic Assessment and plan: Neg MPI in 12/2018. No further plans for ischemic workup at this time. Tele d/c'ed. (12) Atrial flutter, paroxysmal: Status: Chronic Assessment and plan: In NSR at this time with PVCs. Tele d/c'ed. (13) Diabetes mellitus: Status: Chronic Assessment and plan: Continue to adjust basal bolus insulin as steroids are getting tapered. 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 Trial lovenox prior to resuming apixaban. (15) Bradycardia: Status: Resolved Assessment and plan: Resolved off beta blockers. Continue to monitor. (16) CHF (congestive heart failure): Status: Chronic Assessment and plan: Currently near euvolemic. Will diurese as needed - not requiring today (17) Hypoventilation associated with obesity syndrome: Status: Chronic Assessment and plan: It is so exciting to see Brendan actually wear the trilogy - his lab values immediately show benefit. Continue to encourage trilogy when asleep. (18) Hypertension: Status: Chronic Assessment and plan: Better with current therapy. (amlodipine, terazosin, hydralazine). Continue to monitor. Will try to avoid metoprolol due to bradycardia. Qualifiers: Hypertension type: essential hypertension Qualified Code(s): I10 - Essential (primary) hypertension (19) Ulcer of left lower leg: Status: Chronic Assessment and plan: Continue wound care with Mepilex. Qualifiers: Non-pressure ulcer stage: limited to breakdown of skin Qualified Code(s): L97.921 - Non-pressure chronic ulcer of unspecified part of left lower leg limited to breakdown of skin (20) DVT prophylaxis: Status: Acute Assessment and plan: S/p IVC filter. we started therapeutic lovenox today. (21) Discharge planning issues: Status: Acute Assessment and plan: Full code. Continues to require hospitalization. Transferred out to [facility] on 08/04/2019. Subjective Subjective Interval history since last seen: Doing better today. Denies dizziness, chest pain, shortness of breath, nausea, abdominal pain. Diet has been advanced - tolerating. Looking [facility] to [facility] for dinner. Good ostomy output - liquid, greenish. Per surgery, ok to resume anticoagulation. Exam Narrative Exam Narrative: General: Pleasant obese male, awake, A&Ox3, asking questions, at his mental baseline HEENT: EOMI, MMM, no NGT Heart: RRR, no m/r/g Lungs: CTAB anteriorly Abdomen: soft, + bowel sounds, nontender. Ostomy with green liquid stool Extremities: +1 BLE edema, unchanged, R>L; B chronic venous stasis changes; LLE tibial surface dressed - c/d/, L foot wound dressed, c/d/i. Objective Objective Clinical Data: Abnormal lab results 08/05/19 08/05/19 Range/Units 06:30 06:30 RBC 3.95 L (4.50-6.00) m/cumm Hgb 9.1 L (13.5-17.5) g/dL Hct 30.1 L (40.0-50.0) % MCV 76.2 L (80-95) fL MCH 23.0 L (27.0-33.0) pg MCHC 30.2 L (32.0-36.0) g/dL RDW 19.2 H (11.8-14.1) % Absolute Neutrophils 8.23 H (1.2-6.7) k/cumm Absolute Lymphocytes 0.54 L (1.2-3.4) k/cumm BUN 30 H (7-18) mg/dL Creatinine 1.32 H (0.70-1.30) mg/dL Glucose 182 H (74-106) mg/dL Vital Signs Temperature 36.0 C L 08/05/19 15:25 Temperature Source Tympanic 08/05/19 15:25 Pulse 81 08/05/19 15:25 Pulse Rhythm Irregular 08/04/19 22:30 Pulse 86 08/04/19 20:04 Respiratory Rate 19 08/05/19 15:25 Respiratory Effort Non-Labored 08/04/19 22:30 Respiratory Depth Normal 08/04/19 22:30 Respiratory Pattern Normal 08/04/19 22:30 Blood Pressure 149/95 H 08/05/19 15:25 Blood Pressure Mean 109 08/04/19 20:04 Blood Pressure Position Supine 08/04/19 15:06 Pulse Oximetry 98 08/05/19 15:25 Oxygen Delivery Method Room Air 08/05/19 15:25 Oxygen Flow Rate 0 08/05/19 15:25 Pain Level 2 08/05/19 15:25 Comment 08/02/19 08:56 Intake & Output 08/04/19 08/05/19 08/05/19 23:59 11:59 23:59 Intake Total 1840 / 2380 1160 / 1700 540 / 1700 Output Total 1490 / 3170 1150 / 1150 Balance 350 / -790 10 / 550 540 / 550 Intake: IV 550 / 850 100 / 100 Oral 1290 / 1530 1060 / 1600 540 / 1600 Output: Output, Wound Vac (mls) 200 / 200 Urine 890 / 2390 800 / 800 Stool 400 / 550 350 / 350 Other: Urine Color Pale Yellow Yellow Urine Appearance Clear Clear Comment Ruiz draining clear yellow urine. Stool Occult Blood Negative Stool Size Large Stool Characteristics Liquid Brown Laboratory Results WBC 9.43 k/cumm (4.4-10.8) 08/05/19 06:30 RBC 3.95 m/cumm (4.50-6.00) L 08/05/19 06:30 Hgb 9.1 g/dL (13.5-17.5) L 08/05/19 06:30 Hct 30.1 % (40.0-50.0) L 08/05/19 06:30 MCV 76.2 fL (80-95) L 08/05/19 06:30 MCH 23.0 pg (27.0-33.0) L 08/05/19 06:30 MCHC 30.2 g/dL (32.0-36.0) L 08/05/19 06:30 RDW 19.2 % (11.8-14.1) H 08/05/19 06:30 Plt Count 230 x1000/uL (130-400) 08/05/19 06:30 MPV 10.0 fL (8.0-11.0) 08/05/19 06:30 Immature Gran % 0.8 % 08/05/19 06:30 Neutrophils % 87.4 08/05/19 06:30 Band Neutrophils % Cancelled 08/03/19 06:20 Lymphocytes % 5.7 08/05/19 06:30 Atypical Lymphs % Cancelled 08/03/19 06:20 Monocytes % 5.9 08/05/19 06:30 Eosinophils % 0.2 08/05/19 06:30 Basophils % 0.0 08/05/19 06:30 Metamyelocytes % Cancelled 08/03/19 06:20 Myelocytes % Cancelled 08/03/19 06:20 Promyelocytes % Cancelled 08/03/19 06:20 Absolute Neutrophils 8.23 k/cumm (1.2-6.7) H 08/05/19 06:30 Absolute Lymphocytes 0.54 k/cumm (1.2-3.4) L 08/05/19 06:30 Absolute Monocytes 0.56 k/cumm (0.11-0.7) 08/05/19 06:30 Absolute Eosinophils 0.02 k/cumm (0.0-0.7) 08/05/19 06:30 Absolute Basophils 0.00 k/cumm (0.0-0.2) 08/05/19 06:30 Nucleated RBCs Cancelled 08/03/19 06:20 Differential Comment Cancelled 08/03/19 06:20 Other Cell Type Cancelled 08/03/19 06:20 RBC Morphology Cancelled 08/03/19 06:20 Polychromasia Cancelled 08/03/19 06:20 Hypochromasia Cancelled 08/03/19 06:20 Poikilocytosis Cancelled 08/03/19 06:20 Basophilic Stippling Cancelled 08/03/19 06:20 Anisocytosis Cancelled 08/03/19 06:20 Microcytosis Cancelled 08/03/19 06:20 Macrocytosis Cancelled 08/03/19 06:20 Spherocytes Cancelled 08/03/19 06:20 Target Cells Cancelled 08/03/19 06:20 Tear Drop Cells Cancelled 08/03/19 06:20 Ovalocytes Cancelled 08/03/19 06:20 Stomatocytes Cancelled 08/03/19 06:20 [place] Bodies Cancelled 08/03/19 06:20 [place] Cells Cancelled 08/03/19 06:20 Acanthocytes (Spur) Cancelled 08/03/19 06:20 Schistocytes Cancelled 08/03/19 06:20 ESR 55 mm/hr (1-20) H 07/24/19 18:10 PT 10.9 sec (9.3-11.0) 08/02/19 07:20 INR 1.1 (0.9-1.1) 08/02/19 07:20 APTT 26.4 sec (21.0-31.4) 07/24/19 18:10 ABG Sample Site Left radial 07/30/19 08:30 ABG pH 7.32 (7.35-7.45) L 07/30/19 08:30 ABG pCO2 53 mmHg (34-47) H 07/30/19 08:30 ABG pO2 117 mmHg (83-108) H 07/30/19 08:30 ABG HCO3 27 mmol/L (22-28) 07/30/19 08:30 ABG Total CO2 26 mmol/L (22-29) 07/30/19 08:30 ABG O2 Saturation 99 % (94-98) H 07/30/19 08:30 ABG Base Excess 0.7 mmol/L (-3-3) 07/30/19 08:30 Oxygen Liter Flow 2 L 07/30/19 08:30 Sodium 137 mmol/L (136-145) 08/05/19 06:30 Potassium 3.6 mmol/L (3.5-5.1) 08/05/19 06:30 Chloride 101 mmol/L (98-107) 08/05/19 06:30 Carbon Dioxide 29.7 mmol/L (21.0-32.0) 08/05/19 06:30 Anion Gap 6.3 mmol/L (3-11) 08/05/19 06:30 BUN 30 mg/dL (7-18) H 08/05/19 06:30 Creatinine 1.32 mg/dL (0.70-1.30) H 08/05/19 06:30 Estimated GFR/1.73 m2 55.33 (mL/min/1.73m2) 08/05/19 06:30 Glucose 182 mg/dL (74-106) H 08/05/19 06:30 Lactate 0.7 mmol/L (0.6-1.4) 07/30/19 15:40 Calcium 8.7 mg/dL (8.5-10.1) 08/05/19 06:30 Phosphorus 2.2 mg/dL (2.6-4.7) L 08/02/19 06:05 Magnesium 2.1 mg/dL (1.8-2.4) 08/05/19 06:30 Iron 42 ug/dL (65-175) L 07/29/19 06:45 TIBC 157 ug/dL (250-450) L 07/29/19 06:45 Transferrin % Sat 27 % (20-55) 07/29/19 06:45 Ferritin 660 ng/mL (26-388) H 07/29/19 06:45 Total Bilirubin 0.6 mg/dL (0.2-1.0) 08/02/19 06:05 AST 17 U/L (15-37) 08/02/19 06:05 ALT 18 U/L (16-63) 08/02/19 06:05 Alkaline Phosphatase 88 U/L (46-116) 08/02/19 06:05 Troponin I < 0.05 ng/mL (<0.06) 08/01/19 12:25 C-Reactive Protein < 0.05 mg/dL (0.0-0.3) 08/05/19 06:30 Total Protein 5.4 g/dL (6.4-8.2) L 08/02/19 06:05 Albumin 2.3 g/dL (3.4-5.0) L 08/02/19 06:05 Prealbumin 25 mg/dL (20-40) 08/02/19 06:05 Lipase 25 U/L (73-393) 08/05/19 06:30 Tumor Marker AFP <2.5 ng/mL (<8.1) 07/27/19 06:35 Carcinoembryonic Ag 1.5 ng/ml (See Note) 07/26/19 06:45 Procalcitonin 0.1 ng/mL 08/05/19 06:30 TSH 0.28 uIU/mL (0.36-3.74) L 07/24/19 18:10 Free T4 1.20 ng/dL (0.76-1.46) 07/24/19 18:10 Urine Color Yellow (Yellow) 08/02/19 14:10 Urine Clarity Clear (Clear) 08/02/19 14:10 Urine pH 6.5 (5-8) 08/02/19 14:10 Ur Specific [place] 1.015 (1.005-1.025) 08/02/19 14:10 Urine Protein 100 mg/dL (Negative) H 08/02/19 14:10 Urine Ketones Negative mg/dL (Negative) 08/02/19 14:10 Urine Blood Trace-intact (Negative) H 08/02/19 14:10 Urine Nitrite Negative (Negative) 08/02/19 14:10 Urine Bilirubin Negative (Negative) 08/02/19 14:10 Urine Urobilinogen 0.2 EU/dL (Up TO 0.2) 08/02/19 14:10 Ur Leukocyte Esterase Negative (Negative) 08/02/19 14:10 Urine RBC 0-2 HPF (0-2) 08/02/19 14:10 Urine WBC 5-10 HPF (0-5) 08/02/19 14:10 Ur Epithelial Cells Few HPF (Negative) 08/02/19 14:10 Urine Crystals Negative HPF (Negative) 08/02/19 14:10 Urine Bacteria Few HPF (Negative) 08/02/19 14:10 Urine Casts 0-2 hyaline LPF (Negative) 08/02/19 14:10 Urine Mucus Negative (Negative) 08/02/19 14:10 Urine Other Few transitional (Negative) 08/02/19 14:10 Ur Culture Indicated? Yes 08/02/19 14:10 Urine Glucose 250 mg/dL (Negative) H 08/02/19 14:10 Vancomycin Trough 17.4 ug/mL (10.0-20.0) 08/05/19 11:15 c-ANCA Negative (Negative) 07/27/19 06:35 p-ANCA Negative (Negative) 07/27/19 06:35 COVID-19 PCR Negative (Negative) 07/24/19 21:45 Nasopharyn COVID-19 PCR Not Applicable 07/24/19 21:45 [facility] 07/24/[facility] 21:45 Patient ABO/Rh AB Negative 07/25/19 10:55 Antibody Screen Negative 07/25/19 10:55
[2019-08-05] MEDS: POTASSIUM CHLORIDE 20 MEQ/100 ML BAG 50 MEQ IVPB ×2 (16:44→18:56)
[2019-08-05] MEDS: Lactobacillus Acidophilus CAP 1 CAP PO (18:34)
[2019-08-05 19:33] VITALS: BP 156/70; PULSE 79; RESP 18; TEMP 36.6; O2SAT 97
--- NOTE | 2019-08-05 19:33 | WOUNDCONS ---
- If Service Date Differs Date of service: 08/05/19 Time of Service: 19:33 Wound Initial Evaluation Narrative: Pt seen for a weekly check of wound to Left lower extremity and sacrum. Wound vac in place on sacrum, pressure at 125 mmHg. Wound vac dressing to be changed tommorrow and is being followed by the Surgical service. Left lateral leg/ calf wound 12.5 cm x 3.2 cm. Depth varies from 0.1 to greater than surface of leg. 90 percent of wound appears to have epithelized tissue growing. There is an 8 cm long portion near the center of the wound which is raised above the level of the skin by approx 0.2 cm and is purplish in color. On this portion of the wound is an open area partial thickness wound measuring 4 cm x 0.5 cm x 0.1 cm which has scant serosanguinous drainage noted. The wound bed in this portion of the wound is approximately 90 percent dark red tissue and 10 percent pink tissue. Left plantar foot open area measures 0.8 cm x 0.7 cm x 0.4 cm. Wound bed is light pink tissue with scant serosanguinous drainage. - Wound Left Lateral Tib/Fib(lower leg) Wound Type: Full Thickness Wound General Appearance: Unapproximated Wound Bed Greatest Portion: Dusky Red Wound Surrounding Tissue Appearance: [place] Wound Length: 12.5 cm Wound Width: 3.2 cm Wound Drainage Amount: Minimal Wound Drainage Odor: None/Absent Wound Drainage Description: Sero Sanguineous Wound Debridement Method: Gauze Wound Debridement Result: Healthy Tissue Revealed Wound Debridement Amount of Tissue Removed: Minimal Left Plantar foot Wound Type: Pressure Ulcer Pressure Ulcer Stage: III Wound General Appearance: Unapproximated Wound Bed Greatest Portion: Pale [place] Wound Drainage Amount: Minimal Wound Drainage Description: Sero Sanguineous Wound Topical Solution/Irrigant: Saline Irrigant - Circulation, Sensation, Motion Edema Degree: 1+ Peripheral Pulse Strength: Normal Capillary Refill: Less than 3 seconds Sensation Description: Numbness, Tingling Skin Temperature: Warm Skin Color: Hyperpigmentation - Pain Pain Level: 0 Pain Scale Used: Visual Analog Scale 0-10 - Treatment/Dressing Change Topicals/Ointments: None Cleanse With: Sterile Water Dressing Types: Mepilex Ag w/Border
[2019-08-05] MEDS: Levothyroxine 25 MCG TAB 12.5 MCG PO (20:59)
[2019-08-05] MEDS: Ferrous Sulfate 325 MG TAB PO (20:59)
[2019-08-05] MEDS: risperiDONE 0.5 MG TAB 1.5 MG PO (21:00)
[2019-08-05] MEDS: Insulin Glargine 300 UNITS/3 ML PEN 25 UNITS SC (21:04)
[2019-08-06 00:10] VITALS: BP 158/81; PULSE 72; RESP 16; TEMP 36.2; O2SAT 97
[2019-08-06] MEDS: Hydrocortisone SOD SUC. 100 MG VIAL 50 MG IVP ×3 (02:50→18:24)
[2019-08-06] MEDS: Calcium 600mg/Vit D 200U TAB 1 TAB PO ×2 (05:49→18:23)
[2019-08-06] MEDS: ACETAMINOPHEN 1,000 MG/100 ML BTL 400 MG IVPB ×3 (05:49→21:19)
[2019-08-06] MEDS: Normal Saline Flush 10 ML SYR IVP ×3 (05:50→10:47)
[2019-08-06 07:35] VITALS: BP 160/80; PULSE 60; RESP 18; TEMP 36.3; O2SAT 98
[2019-08-06 07:43] LABS: Abs Immature Grans 0.13 k/cumm (0.0-0.09); Absolute Lymphocyte Count 0.92 k/cumm (1.2-3.4); Absolute Monocyte Count 0.77 k/cumm (0.11-0.7); Absolute Neutrophil Count 8.15 k/cumm (1.2-6.7); HCT 29.5 % (40.0-50.0); HGB 8.8 g/dL (13.5-17.5); Immature Grans % 1.3 %; Mean Corp. HGB Concentration 29.8 g/dL (32.0-36.0); Mean Corpuscular Volume 77.2 fL (80-95); Mean Platelet Volume 10.2 fL (8.0-11.0); Monocytes % 7.6; Neutrophils % 80.1; Platelet Count 236 x1000/uL (130-400); RBC 3.82 m/cumm (4.50-6.00); RBC Distribution Width 20.3 % (11.8-14.1); White Blood Cell Count 10.17 k/cumm (4.4-10.8)
[2019-08-06 08:02] LABS: Anisocytosis 2+; Basophilic Stippling Present; Diff Comment RBC Morph Reviewed; Hypochromasia 3+; Microcytosis 3+; Ovalocytes 2+
--- NOTE | 2019-08-06 08:26 | CHAPLAIN ---
Brendan was moved out of the ICU. When I visited yesterday, he was happy to be eating regular food again, as his SBO has resolved. He was looking forward to having a cheeseburger for dinner. He asked me if he could get outside food, because he'd really like a roast grinder and plater from [employer]. I told him I didn't know the rules, but that his Buckle Strap Drum Operator, Nurys, likely would. From Brendan's conversations with Dr. Horowitz, he has kept in his mind that today (08/05), will be a day that will determine if he is on the road to recovery.
[2019-08-06 08:42] LABS: BUN 37 mg/dL (7-18); CREATININE 1.79 mg/dL (0.70-1.30); Calcium 8.5 mg/dL (8.5-10.1); Chloride 102 mmol/L (98-107); Estimated GFR 38.93 (mL/min/1.73m2); Glucose 172 mg/dL (74-106); Potassium 3.9 mmol/L (3.5-5.1); Sodium 135 mmol/L (136-145)
[2019-08-06] MEDS: Insulin Aspart 300 UNITS/3 ML PEN SC ×3 (08:47→18:23)
[2019-08-06] MEDS: Terazosin 2 MG CAP 4 MG PO ×2 (08:48→21:18)
[2019-08-06] MEDS: amLODIPine 5 MG TAB 10 MG PO (08:48)
[2019-08-06] MEDS: Ascorbic Acid 500 MG TAB 250 MG PO ×2 (08:49→21:17)
[2019-08-06] MEDS: Gabapentin 300 MG CAP PO ×3 (08:49→21:17)
[2019-08-06] MEDS: Ferrous Sulfate 325 MG TAB PO ×2 (08:49→21:16)
[2019-08-06] MEDS: Venlafaxine 37.5 MG CAPCR 112.5 MG PO (08:49)
[2019-08-06] MEDS: hydrALAZINE 25 MG TAB 50 MG PO ×3 (08:49→21:16)
[2019-08-06] MEDS: Lactobacillus Acidophilus CAP 1 CAP PO ×3 (08:49→21:18)
[2019-08-06] MEDS: Protein Nutritional Supplement 16 GM 1 OUNCE PACKET PO (08:50)
[2019-08-06] MEDS: Pantoprazole 40 MG VIAL IVP (08:50)
--- NOTE | 2019-08-06 10:15 | PGE_ITS ---
Date of Service Date of service: 08/06/19 Time of Service: 10:16 Assessment and Plan Assessment and plan (1) Persistent vomiting in adult patient: Status: Acute Assessment and plan: gastric outlet obstruction from long standing GERD/ulcer Dx vs dysmotility from poorly controlled DM. IF still persists through weekend- consider EGD on friday and poss emptying study. resume TPN. pt albumin is poor. will hold on NGT later on in the day (4:30pm)- pt says he is hungry and wants to eat. Objective Objective Clinical Data: Abnormal lab results 08/06/19 08/06/19 Range/Units 07:15 07:15 RBC 3.82 L (4.50-6.00) m/cumm Hgb 8.8 L (13.5-17.5) g/dL Hct 29.5 L (40.0-50.0) % MCV 77.2 L (80-95) fL MCH 23.0 L (27.0-33.0) pg MCHC 29.8 L (32.0-36.0) g/dL RDW 20.3 H (11.8-14.1) % Absolute Neutrophils 8.15 H (1.2-6.7) k/cumm Absolute Lymphocytes 0.92 L (1.2-3.4) k/cumm Absolute Monocytes 0.77 H (0.11-0.7) k/cumm Sodium 135 L (136-145) mmol/L BUN 37 H (7-18) mg/dL Creatinine 1.79 H (0.70-1.30) mg/dL Glucose 172 H (74-106) mg/dL Vital Signs Temperature 36.3 C L 08/06/19 07:35 Temperature Source Tympanic 08/06/19 07:35 Pulse 60 08/06/19 07:35 Pulse Rhythm Irregular 08/05/19 15:15 Pulse 86 08/04/19 20:04 Respiratory Rate 18 08/06/19 07:35 Respiratory Effort Non-Labored 08/05/19 15:15 Respiratory Depth Normal 08/05/19 15:15 Respiratory Pattern Normal 08/05/19 15:15 Blood Pressure 160/80 H 08/06/19 07:35 Blood Pressure Mean 109 08/04/19 20:04 Blood Pressure Position Supine 08/04/19 15:06 Pulse Oximetry 98 08/06/19 07:35 Oxygen Delivery Method Room Air 08/06/19 07:35 Oxygen Flow Rate 0 08/06/19 07:35 Pain Level 2 08/06/19 07:35 Comment 08/02/19 08:56 Intake & Output 08/05/19 08/05/19 08/06/19 11:59 23:59 11:59 Intake Total 1160 / 3129.5 1969.5 / 3129.5 580 / 580 Output Total 2000 / 2400 400 / 2400 550 / 550 Balance -840 / 729.5 1569.5 / 729.5 30 Intake: IV 100 / 1039.5 939.5 / 1039.5 100 / 100 Oral 1060 / 2090 1030 / 2090 480 / 480 Output: Urine 1650 / 2050 400 / 2050 550 / 550 Stool 350 / 350 Other: Urine Color Yellow Pale Yellow Yellow Urine Appearance Clear Clear Clear Laboratory Results WBC 10.17 k/cumm (4.4-10.8) 08/06/19 07:15 RBC 3.82 m/cumm (4.50-6.00) L 08/06/19 07:15 Hgb 8.8 g/dL (13.5-17.5) L 08/06/19 07:15 Hct 29.5 % (40.0-50.0) L 08/06/19 07:15 MCV 77.2 fL (80-95) L 08/06/19 07:15 MCH 23.0 pg (27.0-33.0) L 08/06/19 07:15 MCHC 29.8 g/dL (32.0-36.0) L 08/06/19 07:15 RDW 20.3 % (11.8-14.1) H 08/06/19 07:15 Plt Count 236 x1000/uL (130-400) 08/06/19 07:15 MPV 10.2 fL (8.0-11.0) 08/06/19 07:15 Immature Gran % 1.3 % 08/06/19 07:15 Neutrophils % 80.1 08/06/19 07:15 Band Neutrophils % Cancelled 08/03/19 06:20 Lymphocytes % 9.0 08/06/19 07:15 Atypical Lymphs % Cancelled 08/03/19 06:20 Monocytes % 7.6 08/06/19 07:15 Eosinophils % 2.0 08/06/19 07:15 Basophils % 0.0 08/06/19 07:15 Metamyelocytes % Cancelled 08/03/19 06:20 Myelocytes % Cancelled 08/03/19 06:20 Promyelocytes % Cancelled 08/03/19 06:20 Absolute Neutrophils 8.15 k/cumm (1.2-6.7) H 08/06/19 07:15 Absolute Lymphocytes 0.92 k/cumm (1.2-3.4) L 08/06/19 07:15 Absolute Monocytes 0.77 k/cumm (0.11-0.7) H 08/06/19 07:15 Absolute Eosinophils 0.20 k/cumm (0.0-0.7) 08/06/19 07:15 Absolute Basophils 0.00 k/cumm (0.0-0.2) 08/06/19 07:15 Nucleated RBCs Cancelled 08/03/19 06:20 Differential Comment Rbc morph reviewed 08/06/19 07:15 Other Cell Type Cancelled 08/03/19 06:20 RBC Morphology See below 08/06/19 07:15 Polychromasia Cancelled 08/03/19 06:20 Hypochromasia 3+ 08/06/19 07:15 Poikilocytosis Cancelled 08/03/19 06:20 Basophilic Stippling Present 08/06/19 07:15 Anisocytosis 2+ 08/06/19 07:15 Microcytosis 3+ 08/06/19 07:15 Macrocytosis Cancelled 08/03/19 06:20 Spherocytes Cancelled 08/03/19 06:20 Target Cells Cancelled 08/03/19 06:20 Tear Drop Cells Cancelled 08/03/19 06:20 Ovalocytes 2+ 08/06/19 07:15 Stomatocytes Cancelled 08/03/19 06:20 [place] Bodies Cancelled 08/03/19 06:20 [place] Cells Cancelled 08/03/19 06:20 Acanthocytes (Spur) Cancelled 08/03/19 06:20 Schistocytes Cancelled 08/03/19 06:20 ESR 55 mm/hr (1-20) H 07/24/19 18:10 PT 10.9 sec (9.3-11.0) 08/02/19 07:20 INR 1.1 (0.9-1.1) 08/02/19 07:20 APTT 26.4 sec (21.0-31.4) 07/24/19 18:10 ABG Sample Site Left radial 07/30/19 08:30 ABG pH 7.32 (7.35-7.45) L 07/30/19 08:30 ABG pCO2 53 mmHg (34-47) H 07/30/19 08:30 ABG pO2 117 mmHg (83-108) H 07/30/19 08:30 ABG HCO3 27 mmol/L (22-28) 07/30/19 08:30 ABG Total CO2 26 mmol/L (22-29) 07/30/19 08:30 ABG O2 Saturation 99 % (94-98) H 07/30/19 08:30 ABG Base Excess 0.7 mmol/L (-3-3) 07/30/19 08:30 Oxygen Liter Flow 2 L 07/30/19 08:30 Sodium 135 mmol/L (136-145) L 08/06/19 07:15 Potassium 3.9 mmol/L (3.5-5.1) 08/06/19 07:15 Chloride 102 mmol/L (98-107) 08/06/19 07:15 Carbon Dioxide 27.0 mmol/L (21.0-32.0) 08/06/19 07:15 Anion Gap 6.0 mmol/L (3-11) 08/06/19 07:15 BUN 37 mg/dL (7-18) H 08/06/19 07:15 Creatinine 1.79 mg/dL (0.70-1.30) H 08/06/19 07:15 Estimated GFR/1.73 m2 38.93 (mL/min/1.73m2) 08/06/19 07:15 Glucose 172 mg/dL (74-106) H 08/06/19 07:15 Lactate 0.7 mmol/L (0.6-1.4) 07/30/19 15:40 Calcium 8.5 mg/dL (8.5-10.1) 08/06/19 07:15 Phosphorus 2.2 mg/dL (2.6-4.7) L 08/02/19 06:05 Magnesium 2.0 mg/dL (1.8-2.4) 08/06/19 07:15 Iron 42 ug/dL (65-175) L 07/29/19 06:45 TIBC 157 ug/dL (250-450) L 07/29/19 06:45 Transferrin % Sat 27 % (20-55) 07/29/19 06:45 Ferritin 660 ng/mL (26-388) H 07/29/19 06:45 Total Bilirubin 0.6 mg/dL (0.2-1.0) 08/02/19 06:05 AST 17 U/L (15-37) 08/02/19 06:05 ALT 18 U/L (16-63) 08/02/19 06:05 Alkaline Phosphatase 88 U/L (46-116) 08/02/19 06:05 Troponin I < 0.05 ng/mL (<0.06) 08/01/19 12:25 C-Reactive Protein < 0.05 mg/dL (0.0-0.3) 08/05/19 06:30 Total Protein 5.4 g/dL (6.4-8.2) L 08/02/19 06:05 Albumin 2.3 g/dL (3.4-5.0) L 08/02/19 06:05 Prealbumin 25 mg/dL (20-40) 08/02/19 06:05 Lipase 25 U/L (73-393) 08/05/19 06:30 Tumor Marker AFP <2.5 ng/mL (<8.1) 07/27/19 06:35 Carcinoembryonic Ag 1.5 ng/ml (See Note) 07/26/19 06:45 Procalcitonin 0.1 ng/mL 08/05/19 06:30 TSH 0.28 uIU/mL (0.36-3.74) L 07/24/19 18:10 Free T4 1.20 ng/dL (0.76-1.46) 07/24/19 18:10 Urine Color Yellow (Yellow) 08/02/19 14:10 Urine Clarity Clear (Clear) 08/02/19 14:10 Urine pH 6.5 (5-8) 08/02/19 14:10 Ur Specific [place] 1.015 (1.005-1.025) 08/02/19 14:10 Urine Protein 100 mg/dL (Negative) H 08/02/19 14:10 Urine Ketones Negative mg/dL (Negative) 08/02/19 14:10 Urine Blood Trace-intact (Negative) H 08/02/19 14:10 Urine Nitrite Negative (Negative) 08/02/19 14:10 Urine Bilirubin Negative (Negative) 08/02/19 14:10 Urine Urobilinogen 0.2 EU/dL (Up TO 0.2) 08/02/19 14:10 Ur Leukocyte Esterase Negative (Negative) 08/02/19 14:10 Urine RBC 0-2 HPF (0-2) 08/02/19 14:10 Urine WBC 5-10 HPF (0-5) 08/02/19 14:10 Ur Epithelial Cells Few HPF (Negative) 08/02/19 14:10 Urine Crystals Negative HPF (Negative) 08/02/19 14:10 Urine Bacteria Few HPF (Negative) 08/02/19 14:10 Urine Casts 0-2 hyaline LPF (Negative) 08/02/19 14:10 Urine Mucus Negative (Negative) 08/02/19 14:10 Urine Other Few transitional (Negative) 08/02/19 14:10 Ur Culture Indicated? Yes 08/02/19 14:10 Urine Glucose 250 mg/dL (Negative) H 08/02/19 14:10 Vancomycin Trough 17.4 ug/mL (10.0-20.0) 08/05/19 11:15 c-ANCA Negative (Negative) 07/27/19 06:35 p-ANCA Negative (Negative) 07/27/19 06:35 COVID-19 PCR Negative (Negative) 07/24/19 21:45 Nasopharyn COVID-19 PCR Not Applicable 07/24/19 21:45 Ref Test Perform Site [facility] lab 07/24/19 21:45 Patient ABO/Rh AB Negative 07/25/19 10:55 Antibody Screen Negative 07/25/19 10:55
[2019-08-06] MEDS: VANCOMYCIN 1,000 MG in Normal Saline 250 ML 167 MG IV (10:46)
[2019-08-06] MEDS: Enoxaparin 120 MG/0.8 ML SYR 110 MG SC ×2 (10:47→21:20)
--- NOTE | 2019-08-06 11:35 | DI.RAD_ITS ---
EXAM: 2D digital imaging was performed. CLINICAL HISTORY: s/P SBO, concerns for recurrence. COMPARISON: CR XR ABDOMEN FLAT PLATE from 08/02/2019 TECHNIQUE: Supine views of the abdomen performed. FINDINGS: BOWEL GAS PATTERN: Non-specific bowel gas pattern. CALCIFICATIONS: No radiopaque calcifications. OSSEOUS STRUCTURES: Normal for age. OTHER FINDINGS: IVC filter adjacent to the L2 and L3 vertebral bodies. The lung bases are clear. Na sogastric tube has been removed. Surgical clips are seen in the pelvis. IMPRESSION: 1. Nonobstructive bowel gas pattern. DATA REPOSITORY: RADIATION DOSE DELIVERED:
--- NOTE | 2019-08-06 12:11 | CMPROGNOTE_ITS ---
- If Service Date Differs Date of service: 08/06/19 Time of Service: 12:11 Care Management Progress Note S/O: Brendan was sitting up in bed when CM came to see him. He was cheerful and stated he was doing pretty good even though he had vomited this morning and is again NPO. Brendan asked CM if he would be able to order a edge grinder from an outside eatery and was told that since he is not able to eat at this time, the decision would have to be made later. He voiced understanding. A: Brendan is a 59 year old man admitted from the [facility] on 07/24/19 with UTI and a sacral ulcer P: Brendan will need mcfp IV antibiotic therapy to treat the infected decubitus ulcer he presented with. Since the [facility] is unable to provide this service, he will likely need to transition to SB-1 status at some point. Ultimately, Brendan will return to the [facility] when treatment is complete. CM will continue to support Brendan and his discharge planning concerns and will update his sister as needed.
--- NOTE | 2019-08-06 13:25 | W.PM.PROGNOT ---
Date of Service Date of service: 08/06/19 Time of Service: 13:25 Assessment and Plan Assessment and plan (1) SBO (small bowel obstruction): Status: Resolved Assessment and plan: Abdominal films reviewed and show primarily gastric distension. Will keep NPO, resume TPN. Hold off on NG for now unless further vomiting. (2) Decubitus ulcer of sacral region, stage 4: Status: Acute Assessment and plan: Wound with very slow progress. Will need VAC for months. Subjective Subjective Interval history since last seen: Patient had emesis of 75cc today Exam Narrative Exam Narrative: No acute distress Abdomen soft, not distended. Ostomy with air and stool in bag Wound VAC removed from sacral decubitus ulcer. Starting to develop some granulation at base, more towards the patient's right. There is some undermining at noon-2:00 and at 6:00. No debridement needed. Objective Objective Clinical Data: Abnormal lab results 08/06/19 08/06/19 Range/Units 07:15 07:15 RBC 3.82 L (4.50-6.00) m/cumm Hgb 8.8 L (13.5-17.5) g/dL Hct 29.5 L (40.0-50.0) % MCV 77.2 L (80-95) fL MCH 23.0 L (27.0-33.0) pg MCHC 29.8 L (32.0-36.0) g/dL RDW 20.3 H (11.8-14.1) % Absolute Neutrophils 8.15 H (1.2-6.7) k/cumm Absolute Lymphocytes 0.92 L (1.2-3.4) k/cumm Absolute Monocytes 0.77 H (0.11-0.7) k/cumm Sodium 135 L (136-145) mmol/L BUN 37 H (7-18) mg/dL Creatinine 1.79 H (0.70-1.30) mg/dL Glucose 172 H (74-106) mg/dL Vital Signs Temperature 97.3 F L 08/06/19 07:35 Temperature Source Tympanic 08/06/19 07:35 Pulse 60 08/06/19 07:35 Pulse Rhythm Irregular 08/06/19 12:37 Pulse 86 08/04/19 20:04 Respiratory Rate 18 08/06/19 07:35 Respiratory Effort Non-Labored 08/06/19 12:37 Respiratory Depth Normal 08/06/19 12:37 Respiratory Pattern Normal 08/06/19 12:37 Blood Pressure 160/80 H 08/06/19 07:35 Blood Pressure Mean 109 08/04/19 20:04 Blood Pressure Position Supine 08/04/19 15:06 Pulse Oximetry 98 08/06/19 07:35 Oxygen Delivery Method Room Air 08/06/19 07:35 Oxygen Flow Rate 0 08/06/19 07:35 Pain Level 2 08/06/19 07:35 Comment 08/02/19 08:56 Intake & Output 08/05/19 08/06/19 08/06/19 23:59 11:59 23:59 Intake Total 1969.5 / 3129.5 580 / 580 Output Total 400 / 2400 925 / 1105 180 / 1105 Balance 1569.5 / 729.5 -345 / -525 -180 / -525 Intake: IV 939.5 / 1039.5 100 / 100 Oral 1030 / 2090 480 / 480 Output: Urine 400 / 2050 550 / 550 Stool 300 / 480 180 / 480 Emesis 75 / 75 Other: Urine Color Pale Yellow Yellow Urine Appearance Clear Clear Clear Stool Occult Blood Negative Emesis Description Undigested Food Laboratory Results WBC 10.17 k/cumm (4.4-10.8) 08/06/19 07:15 RBC 3.82 m/cumm (4.50-6.00) L 08/06/19 07:15 Hgb 8.8 g/dL (13.5-17.5) L 08/06/19 07:15 Hct 29.5 % (40.0-50.0) L 08/06/19 07:15 MCV 77.2 fL (80-95) L 08/06/19 07:15 MCH 23.0 pg (27.0-33.0) L 08/06/19 07:15 MCHC 29.8 g/dL (32.0-36.0) L 08/06/19 07:15 RDW 20.3 % (11.8-14.1) H 08/06/19 07:15 Plt Count 236 x1000/uL (130-400) 08/06/19 07:15 MPV 10.2 fL (8.0-11.0) 08/06/19 07:15 Immature Gran % 1.3 % 08/06/19 07:15 Neutrophils % 80.1 08/06/19 07:15 Band Neutrophils % Cancelled 08/03/19 06:20 Lymphocytes % 9.0 08/06/19 07:15 Atypical Lymphs % Cancelled 08/03/19 06:20 Monocytes % 7.6 08/06/19 07:15 Eosinophils % 2.0 08/06/19 07:15 Basophils % 0.0 08/06/19 07:15 Metamyelocytes % Cancelled 08/03/19 06:20 Myelocytes % Cancelled 08/03/19 06:20 Promyelocytes % Cancelled 08/03/19 06:20 Absolute Neutrophils 8.15 k/cumm (1.2-6.7) H 08/06/19 07:15 Absolute Lymphocytes 0.92 k/cumm (1.2-3.4) L 08/06/19 07:15 Absolute Monocytes 0.77 k/cumm (0.11-0.7) H 08/06/19 07:15 Absolute Eosinophils 0.20 k/cumm (0.0-0.7) 08/06/19 07:15 Absolute Basophils 0.00 k/cumm (0.0-0.2) 08/06/19 07:15 Nucleated RBCs Cancelled 08/03/19 06:20 Differential Comment Rbc morph reviewed 08/06/19 07:15 Other Cell Type Cancelled 08/03/19 06:20 RBC Morphology See below 08/06/19 07:15 Polychromasia Cancelled 08/03/19 06:20 Hypochromasia 3+ 08/06/19 07:15 Poikilocytosis Cancelled 08/03/19 06:20 Basophilic Stippling Present 08/06/19 07:15 Anisocytosis 2+ 08/06/19 07:15 Microcytosis 3+ 08/06/19 07:15 Macrocytosis Cancelled 08/03/19 06:20 Spherocytes Cancelled 08/03/19 06:20 Target Cells Cancelled 08/03/19 06:20 Tear Drop Cells Cancelled 08/03/19 06:20 Ovalocytes 2+ 08/06/19 07:15 Stomatocytes Cancelled 08/03/19 06:20 [place] Bodies Cancelled 08/03/19 06:20 [place] Cells Cancelled 08/03/19 06:20 Acanthocytes (Spur) Cancelled 08/03/19 06:20 Schistocytes Cancelled 08/03/19 06:20 ESR 55 mm/hr (1-20) H 07/24/19 18:10 PT 10.9 sec (9.3-11.0) 08/02/19 07:20 INR 1.1 (0.9-1.1) 08/02/19 07:20 APTT 26.4 sec (21.0-31.4) 07/24/19 18:10 ABG Sample Site Left radial 07/30/19 08:30 ABG pH 7.32 (7.35-7.45) L 07/30/19 08:30 ABG pCO2 53 mmHg (34-47) H 07/30/19 08:30 ABG pO2 117 mmHg (83-108) H 07/30/19 08:30 ABG HCO3 27 mmol/L (22-28) 07/30/19 08:30 ABG Total CO2 26 mmol/L (22-29) 07/30/19 08:30 ABG O2 Saturation 99 % (94-98) H 07/30/19 08:30 ABG Base Excess 0.7 mmol/L (-3-3) 07/30/19 08:30 Oxygen Liter Flow 2 L 07/30/19 08:30 Sodium 135 mmol/L (136-145) L 08/06/19 07:15 Potassium 3.9 mmol/L (3.5-5.1) 08/06/19 07:15 Chloride 102 mmol/L (98-107) 08/06/19 07:15 Carbon Dioxide 27.0 mmol/L (21.0-32.0) 08/06/19 07:15 Anion Gap 6.0 mmol/L (3-11) 08/06/19 07:15 BUN 37 mg/dL (7-18) H 08/06/19 07:15 Creatinine 1.79 mg/dL (0.70-1.30) H 08/06/19 07:15 Estimated GFR/1.73 m2 38.93 (mL/min/1.73m2) 08/06/19 07:15 Glucose 172 mg/dL (74-106) H 08/06/19 07:15 Lactate 0.7 mmol/L (0.6-1.4) 07/30/19 15:40 Calcium 8.5 mg/dL (8.5-10.1) 08/06/19 07:15 Phosphorus 2.2 mg/dL (2.6-4.7) L 08/02/19 06:05 Magnesium 2.0 mg/dL (1.8-2.4) 08/06/19 07:15 Iron 42 ug/dL (65-175) L 07/29/19 06:45 TIBC 157 ug/dL (250-450) L 07/29/19 06:45 Transferrin % Sat 27 % (20-55) 07/29/19 06:45 Ferritin 660 ng/mL (26-388) H 07/29/19 06:45 Total Bilirubin 0.6 mg/dL (0.2-1.0) 08/02/19 06:05 AST 17 U/L (15-37) 08/02/19 06:05 ALT 18 U/L (16-63) 08/02/19 06:05 Alkaline Phosphatase 88 U/L (46-116) 08/02/19 06:05 Troponin I < 0.05 ng/mL (<0.06) 08/01/19 12:25 C-Reactive Protein < 0.05 mg/dL (0.0-0.3) 08/05/19 06:30 Total Protein 5.4 g/dL (6.4-8.2) L 08/02/19 06:05 Albumin 2.3 g/dL (3.4-5.0) L 08/02/19 06:05 Prealbumin 25 mg/dL (20-40) 08/02/19 06:05 Lipase 25 U/L (73-393) 08/05/19 06:30 Tumor Marker AFP <2.5 ng/mL (<8.1) 07/27/19 06:35 Carcinoembryonic Ag 1.5 ng/ml (See Note) 07/26/19 06:45 Procalcitonin 0.1 ng/mL 08/05/19 06:30 TSH 0.28 uIU/mL (0.36-3.74) L 07/24/19 18:10 Free T4 1.20 ng/dL (0.76-1.46) 07/24/19 18:10 Urine Color Yellow (Yellow) 08/02/19 14:10 Urine Clarity Clear (Clear) 08/02/19 14:10 Urine pH 6.5 (5-8) 08/02/19 14:10 Ur Specific [place] 1.015 (1.005-1.025) 08/02/19 14:10 Urine Protein 100 mg/dL (Negative) H 08/02/19 14:10 Urine Ketones Negative mg/dL (Negative) 08/02/19 14:10 Urine Blood Trace-intact (Negative) H 08/02/19 14:10 Urine Nitrite Negative (Negative) 08/02/19 14:10 Urine Bilirubin Negative (Negative) 08/02/19 14:10 Urine Urobilinogen 0.2 EU/dL (Up TO 0.2) 08/02/19 14:10 Ur Leukocyte Esterase Negative (Negative) 08/02/19 14:10 Urine RBC 0-2 HPF (0-2) 08/02/19 14:10 Urine WBC 5-10 HPF (0-5) 08/02/19 14:10 Ur Epithelial Cells Few HPF (Negative) 08/02/19 14:10 Urine Crystals Negative HPF (Negative) 08/02/19 14:10 Urine Bacteria Few HPF (Negative) 08/02/19 14:10 Urine Casts 0-2 hyaline LPF (Negative) 08/02/19 14:10 Urine Mucus Negative (Negative) 08/02/19 14:10 Urine Other Few transitional (Negative) 08/02/19 14:10 Ur Culture Indicated? Yes 08/02/19 14:10 Urine Glucose 250 mg/dL (Negative) H 08/02/19 14:10 Vancomycin Trough 17.4 ug/mL (10.0-20.0) 08/05/19 11:15 c-ANCA Negative (Negative) 07/27/19 06:35 p-ANCA Negative (Negative) 07/27/19 06:35 COVID-19 PCR Negative (Negative) 07/24/19 21:45 Nasopharyn COVID-19 PCR Not Applicable 07/24/19 21:45 Ref Test Perform Site [facility] lab 07/24/19 21:45 Patient ABO/Rh AB Negative 07/25/19 10:55 Antibody Screen Negative 07/25/19 10:55
[2019-08-06] MEDS: Normal Saline 1,000 ML 75 ML IV (13:41)
--- NOTE | 2019-08-06 15:14 | W.PM.PROGNOT ---
Date of Service Date of service: 08/06/19 Time of Service: 15:14 Assessment and Plan Assessment and plan (1) SBO (small bowel obstruction): Status: Acute Assessment and plan: Per my conversation with surgery, repeat flat plate looks like recurrence of SBO, possible gastric outlet obstruction. Diet downgraded to NPO except sips of water and chips. May require an EGD, but this is not without risk with potential SBO. Started on TPN by surgery. Repeat flat plate tomorrow. Per surgery, the patient is not a surgical candidate, should he worsen. Palliative care discussed with the patient that his prognosis right now is uncertain. (2) Ventricular escape rhythm: Status: Chronic Assessment and plan: Evaluated by cardiology - felt to be benign and a reflection of electrolyte abnormalities/JESSICA. Tele d/c'ed. Patient is s/p negative MPI in 12/2018 ([facility] No further ischemic workup is indicated at this time. (3) Hypokalemia: Status: Resolved Assessment and plan: Replete (4) MRSA bacteremia: Status: Acute Assessment and plan: On blood cultures 07/24/2019, cleared on blood cultures on 07/27/2019. Likely source is the decubitous wound (present on admission). Pathology not clearly showing Crohn's. Continue vancomycin x 4 weeks since negative blood cultures. Expected end date is 08/23/2019. no evidence of endocarditis on echo. (5) Decubitus ulcer, stage 4 with infection: Status: Acute Assessment and plan: s/p surgical debridement on and 07/26/2019. Surgical wound cx with MRSA. As above - no clear evidence of fistula formation/Crohn's activity on pathology. Continue wound vac. Continue vancomycin. Continue MVI, vitamin C, zinc supplementation per nutrition. Offload/mobilize as able. (6) ESBL (extended spectrum beta-lactamase) producing bacteria infection: Status: Resolved Assessment and plan: UTI Due to ESBL E. Coli, present on admission, now s/p ruiz. Doing well off meropenem. (7) Vomiting: Status: Acute Assessment and plan: ? due to recurrent SBO vs gastric outlet obstruction. Made NPO. TPN. Defer to general surgery. (8) Adrenal insufficiency: Status: Chronic Assessment and plan: Continue solucortef at current dose. (9) Acute kidney injury superimposed on chronic kidney disease: Status: Resolved Assessment and plan: Improved post insertion of ruiz catheter and with positive air pressure. We have never seen Brendan with this normal of a Cr. Continue trilogy as it is clearly helping him perfuse his kidneys. Abstating from both IVF and diuretics at this time as starting to take clears. (10) Hyperkalemia: Status: Resolved Assessment and plan: Resolved with treatment of JESUS and adrenal crisis. (11) CAD (coronary artery disease): Status: Chronic Assessment and plan: Neg MPI in 12/2018. No further plans for ischemic workup at this time. Tele d/c'ed. (12) Atrial flutter, paroxysmal: Status: Chronic Assessment and plan: In NSR at this time with PVCs. Tele d/c'ed. (13) Diabetes mellitus: Status: Chronic Assessment and plan: Continue to adjust basal bolus insulin as steroids are getting tapered - decreased long acting insulin as now NPO. Qualifiers: Diabetes mellitus type: type 2 Diabetes mellitus terminologist insulin use: with [facility] use Diabetes mellitus complication status: with neurologic complications Diabetes mellitus complication detail: with polyneuropathy Qualified Code(s): E11.42 - Type 2 diabetes mellitus with diabetic polyneuropathy; Z79.4 - snf (current) use of insulin (14) History of DVT (deep vein thrombosis): Status: Acute Assessment and plan: S/p IVC filter. Continue lovenox trial for now - would not resume apixaban until stable from surgical stand point. (15) Bradycardia: Status: Resolved Assessment and plan: Resolved off beta blockers. Continue to monitor. (16) CHF (congestive heart failure): Status: Chronic Assessment and plan: Currently near euvolemic. Will diurese as needed - not requiring today (17) Hypoventilation associated with obesity syndrome: Status: Chronic Assessment and plan: Tolerating trilogy - his lab values immediately show benefit. Continue to encourage trilogy when asleep. (18) Hypertension: Status: Chronic Assessment and plan: Better with current therapy. (amlodipine, terazosin, hydralazine). Continue to monitor. Will try to avoid metoprolol due to bradycardia. Qualifiers: Hypertension type: essential hypertension Qualified Code(s): I10 - Essential (primary) hypertension (19) Ulcer of left lower leg: Status: Chronic Assessment and plan: Continue wound care with Mepilex. Qualifiers: Non-pressure ulcer stage: limited to breakdown of skin Qualified Code(s): L97.921 - Non-pressure chronic ulcer of unspecified part of left lower leg limited to breakdown of skin (20) DVT prophylaxis: Status: Acute Assessment and plan: S/p IVC filter. Lovenox SC (21) Discharge planning issues: Status: Acute Assessment and plan: Full code. Continues to require hospitalization. Transferred out to [facility] on 08/04/2019. Subjective Subjective Interval history since last seen: Mr Corley vomited undigested food which was also seen in his ostomy today. Made NPO and re-started on TPN. Denies abdominal pain and nausea currently. Denies dizziness, chest pain, shortness of breath. Exam Narrative Exam Narrative: General: Pleasant obese male, awake, A&Ox3, looks to be at his baseline HEENT: EOMI, MMM Heart: RRR, no m/r/g Lungs: CTAB anteriorly Abdomen: soft, + bowel sounds (hyperactive), nontender. Ostomy with dark soft (undigested?) food Extremities: +1 BLE edema, unchanged, R>L; B chronic venous stasis changes; LLE tibial surface dressed - c/d/, L foot wound dressed, c/d/i. Objective Objective Clinical Data: Abnormal lab results 08/06/19 08/06/19 Range/Units 07:15 07:15 RBC 3.82 L (4.50-6.00) m/cumm Hgb 8.8 L (13.5-17.5) g/dL Hct 29.5 L (40.0-50.0) % MCV 77.2 L (80-95) fL MCH 23.0 L (27.0-33.0) pg MCHC 29.8 L (32.0-36.0) g/dL RDW 20.3 H (11.8-14.1) % Absolute Neutrophils 8.15 H (1.2-6.7) k/cumm Absolute Lymphocytes 0.92 L (1.2-3.4) k/cumm Absolute Monocytes 0.77 H (0.11-0.7) k/cumm Sodium 135 L (136-145) mmol/L BUN 37 H (7-18) mg/dL Creatinine 1.79 H (0.70-1.30) mg/dL Glucose 172 H (74-106) mg/dL Vital Signs Temperature 36.3 C L 08/06/19 07:35 Temperature Source Tympanic 08/06/19 07:35 Pulse 60 08/06/19 07:35 Pulse Rhythm Irregular 08/06/19 12:37 Pulse 86 08/04/19 20:04 Respiratory Rate 18 08/06/19 07:35 Respiratory Effort Non-Labored 08/06/19 12:37 Respiratory Depth Normal 08/06/19 12:37 Respiratory Pattern Normal 08/06/19 12:37 Blood Pressure 160/80 H 08/06/19 07:35 Blood Pressure Mean 109 08/04/19 20:04 Blood Pressure Position Supine 08/04/19 15:06 Pulse Oximetry 98 08/06/19 07:35 Oxygen Delivery Method Room Air 08/06/19 07:35 Oxygen Flow Rate 0 08/06/19 07:35 Pain Level 2 08/06/19 07:35 Comment 08/02/19 08:56 Intake & Output 08/05/19 08/06/19 08/06/19 23:59 11:59 23:59 Intake Total 1969.5 / 3129.5 580 / 580 Output Total 400 / 2400 925 / 1105 180 / 1105 Balance 1569.5 / 729.5 -345 / -525 -180 / -525 Intake: IV 939.5 / 1039.5 100 / 100 Oral 1030 / 2090 480 / 480 Output: Urine 400 / 2050 550 / 550 Stool 300 / 480 180 / 480 Emesis 75 / 75 Other: Urine Color Pale Yellow Yellow Urine Appearance Clear Clear Clear Stool Occult Blood Negative Emesis Description Undigested Food Laboratory Results WBC 10.17 k/cumm (4.4-10.8) 08/06/19 07:15 RBC 3.82 m/cumm (4.50-6.00) L 08/06/19 07:15 Hgb 8.8 g/dL (13.5-17.5) L 08/06/19 07:15 Hct 29.5 % (40.0-50.0) L 08/06/19 07:15 MCV 77.2 fL (80-95) L 08/06/19 07:15 MCH 23.0 pg (27.0-33.0) L 08/06/19 07:15 MCHC 29.8 g/dL (32.0-36.0) L 08/06/19 07:15 RDW 20.3 % (11.8-14.1) H 08/06/19 07:15 Plt Count 236 x1000/uL (130-400) 08/06/19 07:15 MPV 10.2 fL (8.0-11.0) 08/06/19 07:15 Immature Gran % 1.3 % 08/06/19 07:15 Neutrophils % 80.1 08/06/19 07:15 Band Neutrophils % Cancelled 08/03/19 06:20 Lymphocytes % 9.0 08/06/19 07:15 Atypical Lymphs % Cancelled 08/03/19 06:20 Monocytes % 7.6 08/06/19 07:15 Eosinophils % 2.0 08/06/19 07:15 Basophils % 0.0 08/06/19 07:15 Metamyelocytes % Cancelled 08/03/19 06:20 Myelocytes % Cancelled 08/03/19 06:20 Promyelocytes % Cancelled 08/03/19 06:20 Absolute Neutrophils 8.15 k/cumm (1.2-6.7) H 08/06/19 07:15 Absolute Lymphocytes 0.92 k/cumm (1.2-3.4) L 08/06/19 07:15 Absolute Monocytes 0.77 k/cumm (0.11-0.7) H 08/06/19 07:15 Absolute Eosinophils 0.20 k/cumm (0.0-0.7) 08/06/19 07:15 Absolute Basophils 0.00 k/cumm (0.0-0.2) 08/06/19 07:15 Nucleated RBCs Cancelled 08/03/19 06:20 Differential Comment Rbc morph reviewed 08/06/19 07:15 Other Cell Type Cancelled 08/03/19 06:20 RBC Morphology See below 08/06/19 07:15 Polychromasia Cancelled 08/03/19 06:20 Hypochromasia 3+ 08/06/19 07:15 Poikilocytosis Cancelled 08/03/19 06:20 Basophilic Stippling Present 08/06/19 07:15 Anisocytosis 2+ 08/06/19 07:15 Microcytosis 3+ 08/06/19 07:15 Macrocytosis Cancelled 08/03/19 06:20 Spherocytes Cancelled 08/03/19 06:20 Target Cells Cancelled 08/03/19 06:20 Tear Drop Cells Cancelled 08/03/19 06:20 Ovalocytes 2+ 08/06/19 07:15 Stomatocytes Cancelled 08/03/19 06:20 [place] Bodies Cancelled 08/03/19 06:20 Nunez Cells Cancelled 08/03/19 06:20 Acanthocytes (Spur) Cancelled 08/03/19 06:20 Schistocytes Cancelled 08/03/19 06:20 ESR 55 mm/hr (1-20) H 07/24/19 18:10 PT 10.9 sec (9.3-11.0) 08/02/19 07:20 INR 1.1 (0.9-1.1) 08/02/19 07:20 APTT 26.4 sec (21.0-31.4) 07/24/19 18:10 ABG Sample Site Left radial 07/30/19 08:30 ABG pH 7.32 (7.35-7.45) L 07/30/19 08:30 ABG pCO2 53 mmHg (34-47) H 07/30/19 08:30 ABG pO2 117 mmHg (83-108) H 07/30/19 08:30 ABG HCO3 27 mmol/L (22-28) 07/30/19 08:30 ABG Total CO2 26 mmol/L (22-29) 07/30/19 08:30 ABG O2 Saturation 99 % (94-98) H 07/30/19 08:30 ABG Base Excess 0.7 mmol/L (-3-3) 07/30/19 08:30 Oxygen Liter Flow 2 L 07/30/19 08:30 Sodium 135 mmol/L (136-145) L 08/06/19 07:15 Potassium 3.9 mmol/L (3.5-5.1) 08/06/19 07:15 Chloride 102 mmol/L (98-107) 08/06/19 07:15 Carbon Dioxide 27.0 mmol/L (21.0-32.0) 08/06/19 07:15 Anion Gap 6.0 mmol/L (3-11) 08/06/19 07:15 BUN 37 mg/dL (7-18) H 08/06/19 07:15 Creatinine 1.79 mg/dL (0.70-1.30) H 08/06/19 07:15 Estimated GFR/1.73 m2 38.93 (mL/min/1.73m2) 08/06/19 07:15 Glucose 172 mg/dL (74-106) H 08/06/19 07:15 Lactate 0.7 mmol/L (0.6-1.4) 07/30/19 15:40 Calcium 8.5 mg/dL (8.5-10.1) 08/06/19 07:15 Phosphorus 2.2 mg/dL (2.6-4.7) L 08/02/19 06:05 Magnesium 2.0 mg/dL (1.8-2.4) 08/06/19 07:15 Iron 42 ug/dL (65-175) L 07/29/19 06:45 TIBC 157 ug/dL (250-450) L 07/29/19 06:45 Transferrin % Sat 27 % (20-55) 07/29/19 06:45 Ferritin 660 ng/mL (26-388) H 07/29/19 06:45 Total Bilirubin 0.6 mg/dL (0.2-1.0) 08/02/19 06:05 AST 17 U/L (15-37) 08/02/19 06:05 ALT 18 U/L (16-63) 08/02/19 06:05 Alkaline Phosphatase 88 U/L (46-116) 08/02/19 06:05 Troponin I < 0.05 ng/mL (<0.06) 08/01/19 12:25 C-Reactive Protein < 0.05 mg/dL (0.0-0.3) 08/05/19 06:30 Total Protein 5.4 g/dL (6.4-8.2) L 08/02/19 06:05 Albumin 2.3 g/dL (3.4-5.0) L 08/02/19 06:05 Prealbumin 25 mg/dL (20-40) 08/02/19 06:05 Lipase 25 U/L (73-393) 08/05/19 06:30 Tumor Marker AFP <2.5 ng/mL (<8.1) 07/27/19 06:35 Carcinoembryonic Ag 1.5 ng/ml (See Note) 07/26/19 06:45 Procalcitonin 0.1 ng/mL 08/05/19 06:30 TSH 0.28 uIU/mL (0.36-3.74) L 07/24/19 18:10 Free T4 1.20 ng/dL (0.76-1.46) 07/24/19 18:10 Urine Color Yellow (Yellow) 08/02/19 14:10 Urine Clarity Clear (Clear) 08/02/19 14:10 Urine pH 6.5 (5-8) 08/02/19 14:10 Ur Specific [place] 1.015 (1.005-1.025) 08/02/19 14:10 Urine Protein 100 mg/dL (Negative) H 08/02/19 14:10 Urine Ketones Negative mg/dL (Negative) 08/02/19 14:10 Urine Blood Trace-intact (Negative) H 08/02/19 14:10 Urine Nitrite Negative (Negative) 08/02/19 14:10 Urine Bilirubin Negative (Negative) 08/02/19 14:10 Urine Urobilinogen 0.2 EU/dL (Up TO 0.2) 08/02/19 14:10 Ur Leukocyte Esterase Negative (Negative) 08/02/19 14:10 Urine RBC 0-2 HPF (0-2) 08/02/19 14:10 Urine WBC 5-10 HPF (0-5) 08/02/19 14:10 Ur Epithelial Cells Few HPF (Negative) 08/02/19 14:10 Urine Crystals Negative HPF (Negative) 08/02/19 14:10 Urine Bacteria Few HPF (Negative) 08/02/19 14:10 Urine Casts 0-2 hyaline LPF (Negative) 08/02/19 14:10 Urine Mucus Negative (Negative) 08/02/19 14:10 Urine Other Few transitional (Negative) 08/02/19 14:10 Ur Culture Indicated? Yes 08/02/19 14:10 Urine Glucose 250 mg/dL (Negative) H 08/02/19 14:10 Vancomycin Trough 17.4 ug/mL (10.0-20.0) 08/05/19 11:15 c-ANCA Negative (Negative) 07/27/19 06:35 p-ANCA Negative (Negative) 07/27/19 06:35 COVID-19 PCR Negative (Negative) 07/24/19 21:45 Nasopharyn COVID-19 PCR Not Applicable 07/24/19 21:45 Ref Test Perform Site [facility] lab 07/24/19 21:45 Patient ABO/Rh AB Negative 07/25/19 10:55 Antibody Screen Negative 07/25/19 10:55
[2019-08-06 15:33] VITALS: BP 175/73; PULSE 75; RESP 22; TEMP 36.2; O2SAT 98
[2019-08-06 19:35] VITALS: BP 162/85; PULSE 67; RESP 17; TEMP 36.2; O2SAT 97
[2019-08-06] MEDS: Levothyroxine 25 MCG TAB 12.5 MCG PO (21:16)
[2019-08-06] MEDS: risperiDONE 0.5 MG TAB 1.5 MG PO (21:17)
[2019-08-06] MEDS: Insulin Glargine 300 UNITS/3 ML PEN 15 UNITS SC (21:21)
[2019-08-06 23:53] VITALS: BP 169/80; PULSE 77; RESP 17; TEMP 36.8; O2SAT 97
[2019-08-07] MEDS: Insulin Aspart 300 UNITS/3 ML PEN SC ×5 (00:02→21:58)
[2019-08-07] MEDS: Melatonin 3 MG TAB PO ×2 (00:02→23:48)
[2019-08-07] MEDS: Hydrocortisone SOD SUC. 100 MG VIAL 50 MG IVP ×3 (02:39→21:54)
[2019-08-07] MEDS: ACETAMINOPHEN 1,000 MG/100 ML BTL 400 MG IVPB ×3 (05:40→21:54)
[2019-08-07] MEDS: Calcium 600mg/Vit D 200U TAB 1 TAB PO ×2 (05:43→17:10)
[2019-08-07 07:03] LABS: Abs Immature Grans 0.14 k/cumm (0.0-0.09); Absolute Basophil Count 0.01 k/cumm (0.0-0.2); Absolute Eosinophil Count 0.08 k/cumm (0.0-0.7); Absolute Lymphocyte Count 1.03 k/cumm (1.2-3.4); Absolute Monocyte Count 0.51 k/cumm (0.11-0.7); Basophils % 0.1; HCT 30.9 % (40.0-50.0); HGB 9.3 g/dL (13.5-17.5); Immature Grans % 1.8 %; Lymphocytes % 13.3; Mean Corp. HGB Concentration 30.1 g/dL (32.0-36.0); Mean Corpuscular Hemoglobin 23.3 pg (27.0-33.0); Mean Corpuscular Volume 77.4 fL (80-95); Mean Platelet Volume 10.5 fL (8.0-11.0); Monocytes % 6.6; Neutrophils % 77.2; Platelet Count 231 x1000/uL (130-400); RBC 3.99 m/cumm (4.50-6.00); RBC Distribution Width 20.3 % (11.8-14.1); White Blood Cell Count 7.77 k/cumm (4.4-10.8)
[2019-08-07 07:09] LABS: Anion Gap 7.1 mmol/L (3-11); BUN 37 mg/dL (7-18); CO2 25.9 mmol/L (21.0-32.0); CREATININE 1.61 mg/dL (0.70-1.30); Calcium 8.7 mg/dL (8.5-10.1); Chloride 104 mmol/L (98-107); Estimated GFR 43.99 (mL/min/1.73m2); Glucose 230 mg/dL (74-106); Magnesium 2.1 mg/dL (1.8-2.4); Potassium 3.9 mmol/L (3.5-5.1); Sodium 137 mmol/L (136-145)
[2019-08-07 07:46] VITALS: BP 176/73; PULSE 81; RESP 19; TEMP 36.9; O2SAT 97
[2019-08-07] MEDS: Normal Saline Flush 10 ML SYR IVP ×3 (08:49→21:09)
[2019-08-07] MEDS: Pantoprazole 40 MG VIAL IVP (08:50)
[2019-08-07] MEDS: VANCOMYCIN 1,000 MG in Normal Saline 250 ML 167 MG IV (08:51)
[2019-08-07] MEDS: Ascorbic Acid 500 MG TAB 250 MG PO ×2 (08:52→20:32)
[2019-08-07] MEDS: Lactobacillus Acidophilus CAP 1 CAP PO ×3 (08:52→20:32)
[2019-08-07] MEDS: amLODIPine 5 MG TAB 10 MG PO (08:52)
[2019-08-07] MEDS: Venlafaxine 37.5 MG CAPCR 112.5 MG PO (08:52)
[2019-08-07] MEDS: Terazosin 2 MG CAP 4 MG PO ×2 (08:52→20:32)
[2019-08-07] MEDS: hydrALAZINE 25 MG TAB 50 MG PO ×4 (08:52→20:32)
[2019-08-07] MEDS: Ferrous Sulfate 325 MG TAB PO ×2 (08:53→20:32)
[2019-08-07] MEDS: Gabapentin 300 MG CAP PO ×3 (08:53→20:32)
[2019-08-07] MEDS: Enoxaparin 120 MG/0.8 ML SYR 110 MG SC ×2 (10:59→21:56)
[2019-08-07 11:34] VITALS: BP 164/80; PULSE 60; RESP 19; TEMP 36.4; O2SAT 97
--- NOTE | 2019-08-07 11:45 | DI.RAD_ITS ---
EXAM: 2D digital imaging was performed. CLINICAL HISTORY: R/O SBO. COMPARISON: CT CT ABDOMEN PELVIS WO from 07/31/2019 CR XR ABDOMEN FLAT PLATE from 08/06/2019 TECHNIQUE: Supine views of the abdomen performed. FINDINGS: BOWEL GAS PATTERN: Nondistended. CALCIFICATIONS: Gallstones. Lung bases: Clear as visualized. Mildly elevated left hemidiaphragm. OSSEOUS STRUCTURES: Degenerative changes in the spine. OTHER FINDINGS: IVC filter. Surgical clips lower pelvis. IMPRESSION: 1. Nonobstructive bowel gas pattern. DATA REPOSITORY: RADIATION DOSE DELIVERED:
--- NOTE | 2019-08-07 12:08 | W.PM.PROGNOT ---
Date of Service Date of service: 08/07/19 Time of Service: 12:08 Assessment and Plan Assessment and plan (1) Persistent vomiting in adult patient: Status: Acute Assessment and plan: Will resume clear liquids Subjective Subjective Interval history since last seen: Wound VAC lost suction last night, replaced this morning. Patient had some nausea this am but no vomiting since yesterday Exam Narrative Exam Narrative: No distress Abdomen soft, nondistended Good ostomy output Objective Objective Clinical Data: Abnormal lab results 08/07/19 08/07/19 Range/Units 06:34 06:34 RBC 3.99 L (4.50-6.00) m/cumm Hgb 9.3 L (13.5-17.5) g/dL Hct 30.9 L (40.0-50.0) % MCV 77.4 L (80-95) fL MCH 23.3 L (27.0-33.0) pg MCHC 30.1 L (32.0-36.0) g/dL RDW 20.3 H (11.8-14.1) % Absolute Lymphocytes 1.03 L (1.2-3.4) k/cumm BUN 37 H (7-18) mg/dL Creatinine 1.61 H (0.70-1.30) mg/dL Glucose 230 H (74-106) mg/dL Vital Signs Temperature 97.5 F L 08/07/19 11:34 Temperature Source Temporal Artery Scan 08/07/19 11:34 Pulse 60 08/07/19 11:34 Pulse Rhythm Irregular 08/07/19 06:20 Pulse 86 08/04/19 20:04 Respiratory Rate 19 08/07/19 11:34 Respiratory Effort Non-Labored 08/07/19 06:20 Respiratory Depth Normal 08/07/19 06:20 Respiratory Pattern Normal 08/07/19 06:20 Blood Pressure 164/80 H 08/07/19 11:34 Blood Pressure Mean 109 08/04/19 20:04 Blood Pressure Position Supine 08/04/19 15:06 Pulse Oximetry 97 08/07/19 11:34 Oxygen Delivery Method Room Air 08/07/19 11:34 Oxygen Flow Rate 0 08/07/19 11:34 Pain Level 2 08/07/19 11:34 Comment 08/02/19 08:56 Intake & Output 08/06/19 08/07/1920 23:59 11:59 23:59 Intake Total 450 / 1130 Output Total 1080 / 2305 850 / 850 Balance -630 / -1175 -830 / -830 Intake: IV 450 / 650 Output: Urine 900 / 1450 700 / 700 Stool 180 / 780 150 / 150 Other: Urine Color Yellow Yellow Urine Appearance Clear Clear Laboratory Results WBC 7.77 k/cumm (4.4-10.8) 08/07/19 06:34 RBC 3.99 m/cumm (4.50-6.00) L 08/07/19 06:34 Hgb 9.3 g/dL (13.5-17.5) L 08/07/19 06:34 Hct 30.9 % (40.0-50.0) L 08/07/19 06:34 MCV 77.4 fL (80-95) L 08/07/19 06:34 MCH 23.3 pg (27.0-33.0) L 08/07/19 06:34 MCHC 30.1 g/dL (32.0-36.0) L 08/07/19 06:34 RDW 20.3 % (11.8-14.1) H 08/07/19 06:34 Plt Count 231 x1000/uL (130-400) 08/07/19 06:34 MPV 10.5 fL (8.0-11.0) 08/07/19 06:34 Immature Gran % 1.8 % 08/07/19 06:34 Neutrophils % 77.2 08/07/19 06:34 Band Neutrophils % Cancelled 08/03/19 06:20 Lymphocytes % 13.3 08/07/19 06:34 Atypical Lymphs % Cancelled 08/03/19 06:20 Monocytes % 6.6 08/07/19 06:34 Eosinophils % 1.0 08/07/19 06:34 Basophils % 0.1 08/07/19 06:34 Metamyelocytes % Cancelled 08/03/19 06:20 Myelocytes % Cancelled 08/03/19 06:20 Promyelocytes % Cancelled 08/03/19 06:20 Absolute Neutrophils 6.00 k/cumm (1.2-6.7) 08/07/19 06:34 Absolute Lymphocytes 1.03 k/cumm (1.2-3.4) L 08/07/19 06:34 Absolute Monocytes 0.51 k/cumm (0.11-0.7) 08/07/19 06:34 Absolute Eosinophils 0.08 k/cumm (0.0-0.7) 08/07/19 06:34 Absolute Basophils 0.01 k/cumm (0.0-0.2) 08/07/19 06:34 Nucleated RBCs Cancelled 08/03/19 06:20 Differential Comment Rbc morph reviewed 08/06/19 07:15 Other Cell Type Cancelled 08/03/19 06:20 RBC Morphology See below 08/06/19 07:15 Polychromasia Cancelled 08/03/19 06:20 Hypochromasia 3+ 08/06/19 07:15 Poikilocytosis Cancelled 08/03/19 06:20 Basophilic Stippling Present 08/06/19 07:15 Anisocytosis 2+ 08/06/19 07:15 Microcytosis 3+ 08/06/19 07:15 Macrocytosis Cancelled 08/03/19 06:20 Spherocytes Cancelled 08/03/19 06:20 Target Cells Cancelled 08/03/19 06:20 Tear Drop Cells Cancelled 08/03/19 06:20 Ovalocytes 2+ 08/06/19 07:15 Stomatocytes Cancelled 08/03/19 06:20 Gl[place] Bodies Cancelled 08/03/19 06:20 Sathya Cells Cancelled 08/03/19 06:20 Acanthocytes (Spur) Cancelled 08/03/19 06:20 Schistocytes Cancelled 08/03/19 06:20 ESR 55 mm/hr (1-20) H 07/24/19 18:10 PT 10.9 sec (9.3-11.0) 08/02/19 07:20 INR 1.1 (0.9-1.1) 08/02/19 07:20 APTT 26.4 sec (21.0-31.4) 07/24/19 18:10 ABG Sample Site Left radial 07/30/19 08:30 ABG pH 7.32 (7.35-7.45) L 07/30/19 08:30 ABG pCO2 53 mmHg (34-47) H 07/30/19 08:30 ABG pO2 117 mmHg (83-108) H 07/30/19 08:30 ABG HCO3 27 mmol/L (22-28) 07/30/19 08:30 ABG Total CO2 26 mmol/L (22-29) 07/30/19 08:30 ABG O2 Saturation 99 % (94-98) H 07/30/19 08:30 ABG Base Excess 0.7 mmol/L (-3-3) 07/30/19 08:30 Oxygen Liter Flow 2 L 07/30/19 08:30 Sodium 137 mmol/L (136-145) 08/07/19 06:34 Potassium 3.9 mmol/L (3.5-5.1) 08/07/19 06:34 Chloride 104 mmol/L (98-107) 08/07/19 06:34 Carbon Dioxide 25.9 mmol/L (21.0-32.0) 08/07/19 06:34 Anion Gap 7.1 mmol/L (3-11) 08/07/19 06:34 BUN 37 mg/dL (7-18) H 08/07/19 06:34 Creatinine 1.61 mg/dL (0.70-1.30) H 08/07/19 06:34 Estimated GFR/1.73 m2 43.99 (mL/min/1.73m2) 08/07/19 06:34 Glucose 230 mg/dL (74-106) H 08/07/19 06:34 Lactate 0.7 mmol/L (0.6-1.4) 07/30/19 15:40 Calcium 8.7 mg/dL (8.5-10.1) 08/07/19 06:34 Phosphorus 2.2 mg/dL (2.6-4.7) L 08/02/19 06:05 Magnesium 2.1 mg/dL (1.8-2.4) 08/07/19 06:34 Iron 42 ug/dL (65-175) L 07/29/19 06:45 TIBC 157 ug/dL (250-450) L 07/29/19 06:45 Transferrin % Sat 27 % (20-55) 07/29/19 06:45 Ferritin 660 ng/mL (26-388) H 07/29/19 06:45 Total Bilirubin 0.6 mg/dL (0.2-1.0) 08/02/19 06:05 AST 17 U/L (15-37) 08/02/19 06:05 ALT 18 U/L (16-63) 08/02/19 06:05 Alkaline Phosphatase 88 U/L (46-116) 08/02/19 06:05 Troponin I < 0.05 ng/mL (<0.06) 08/01/19 12:25 C-Reactive Protein < 0.05 mg/dL (0.0-0.3) 08/05/19 06:30 Total Protein 5.4 g/dL (6.4-8.2) L 08/02/19 06:05 Albumin 2.3 g/dL (3.4-5.0) L 08/02/19 06:05 Prealbumin 25 mg/dL (20-40) 08/02/19 06:05 Lipase 25 U/L (73-393) 08/05/19 06:30 Tumor Marker AFP <2.5 ng/mL (<8.1) 07/27/19 06:35 Carcinoembryonic Ag 1.5 ng/ml (See Note) 07/26/19 06:45 Procalcitonin 0.1 ng/mL 08/05/19 06:30 TSH 0.28 uIU/mL (0.36-3.74) L 07/24/19 18:10 Free T4 1.20 ng/dL (0.76-1.46) 07/24/19 18:10 Urine Color Yellow (Yellow) 08/02/19 14:10 Urine Clarity Clear (Clear) 08/02/19 14:10 Urine pH 6.5 (5-8) 08/02/19 14:10 Ur Specific [place] 1.015 (1.005-1.025) 08/02/19 14:10 Urine Protein 100 mg/dL (Negative) H 08/02/19 14:10 Urine Ketones Negative mg/dL (Negative) 08/02/19 14:10 Urine Blood Trace-intact (Negative) H 08/02/19 14:10 Urine Nitrite Negative (Negative) 08/02/19 14:10 Urine Bilirubin Negative (Negative) 08/02/19 14:10 Urine Urobilinogen 0.2 EU/dL (Up TO 0.2) 08/02/19 14:10 Ur Leukocyte Esterase Negative (Negative) 08/02/19 14:10 Urine RBC 0-2 HPF (0-2) 08/02/19 14:10 Urine WBC 5-10 HPF (0-5) 08/02/19 14:10 Ur Epithelial Cells Few HPF (Negative) 08/02/19 14:10 Urine Crystals Negative HPF (Negative) 08/02/19 14:10 Urine Bacteria Few HPF (Negative) 08/02/19 14:10 Urine Casts 0-2 hyaline LPF (Negative) 08/02/19 14:10 Urine Mucus Negative (Negative) 08/02/19 14:10 Urine Other Few transitional (Negative) 08/02/19 14:10 Ur Culture Indicated? Yes 08/02/19 14:10 Urine Glucose 250 mg/dL (Negative) H 08/02/19 14:10 Vancomycin Trough 17.4 ug/mL (10.0-20.0) 08/05/19 11:15 c-ANCA Negative (Negative) 07/27/19 06:35 p-ANCA Negative (Negative) 07/27/19 06:35 COVID-19 PCR Negative (Negative) 07/24/19 21:45 Nasopharyn COVID-19 PCR Not Applicable 07/24/19 21:45 Ref Test Perform Site [facility] lab 07/24/19 21:45 Patient ABO/Rh AB Negative 07/25/19 10:55 Antibody Screen Negative 07/25/19 10:55
--- NOTE | 2019-08-07 12:52 | DI.VRAD_ITS ---
PROCEDURE INFORMATION: Exam: XR Abdomen, 1 View Exam date and time: 08/07/2019 12:18 PM Age: 59 years old Clinical indication: Abdominal pain TECHNIQUE: Imaging protocol: XR of the abdomen. Views: Frontal supine view of the abdomen. 1 View. COMPARISON: CR XR ABDOMEN FLAT PLATE 08/06/2019 11:30 AM FINDINGS: Gastrointestinal tract: Nonspecific bowel gas pattern, without gaseous distension. Vasculature: IVC filter stable. Surgical clips in the midline pelvis. Bones/joints: Unremarkable. IMPRESSION: Non-specific bowel gas pattern, without gaseous distension. Dictated and Authenticated by: Jeannette Benoit MD. Ordering:CORONA Marques MD
[2019-08-07] MEDS: Protein Nutritional Supplement 16 GM 1 OUNCE PACKET PO ×2 (13:48→20:32)
[2019-08-07 14:22] VITALS: BP 158/86; PULSE 85; RESP 18; TEMP 36.1; O2SAT 97
--- NOTE | 2019-08-07 14:57 | PGE_ITS ---
Date of Service Date of service: 08/07/19 Time of Service: 12:57 Assessment and Plan Assessment and plan (1) SBO (small bowel obstruction): Status: Acute Assessment and plan: Concern for recurrence of SBO yesterday, but clearly improved today. Diet progressed to clears at lunch after discussion with Dr. Newman. We will stop the TPN and further progress diet as tolerated. Per surgery, the patient is not a surgical candidate, should he worsen. (2) Ventricular escape rhythm: Status: Chronic Assessment and plan: Evaluated by cardiology - felt to be benign and a reflection of electrolyte abnormalities/JESSICA. Tele d/c'ed. Patient is s/p negative MPI in 12/2018 ([facility] [place]). No further ischemic workup is indicated at this time, will change (3) Hypokalemia: Status: Resolved Assessment and plan: Continue to replace and fluids. (4) MRSA bacteremia: Status: Acute Assessment and plan: On blood cultures 07/24/2019, cleared on blood cultures on 07/27/2019. Likely source is the decubitous wound (present on admission). Pathology not clearly showing Crohn's. Continue vancomycin x 4 weeks since negative blood cultures. Expected end date is 08/23/2019. no evidence of endocarditis on echo. (5) Decubitus ulcer, stage 4 with infection: Status: Acute Assessment and plan: s/p surgical debridement on and 07/26/2019. Surgical wound cx with MRSA. As above - no clear evidence of fistula formation/Crohn's activity on pathology. Continue wound vac. Continue vancomycin. Continue MVI, vitamin C, zinc supplementation per nutrition. Offload/mobilize as able. (6) ESBL (extended spectrum beta-lactamase) producing bacteria infection: Status: Resolved Assessment and plan: UTI Due to ESBL E. Coli, present on admission, now s/p ruiz. Doing well off meropenem. (7) Adrenal insufficiency: Status: Chronic Assessment and plan: Taper hydrocortisone to 50 mg twice daily. (8) CAD (coronary artery disease): Status: Chronic Assessment and plan: Neg MPI in 12/2018. No further plans for ischemic workup at this time. Tele d/c'ed. (9) Atrial flutter, paroxysmal: Status: Chronic Assessment and plan: In NSR at this time with PVCs. On anticoagulation chronically but being held currently. Tele d/c'ed. (10) Diabetes mellitus: Status: Chronic Assessment and plan: Continue to adjust basal bolus insulin as steroids are getting tapered. #6 back to before meals and at bedtime. Qualifiers: Diabetes mellitus type: type 2 Diabetes mellitus custodial insulin use: with watermelon inspector use Diabetes mellitus complication status: with neurologic complications Diabetes mellitus complication detail: with polyneuropathy Qualified Code(s): E11.42 - Type 2 diabetes mellitus with diabetic polyneuropathy; Z79.4 - MCFP (current) use of insulin (11) History of DVT (deep vein thrombosis): Status: Acute Assessment and plan: S/p IVC filter. Continue lovenox trial for now - would not resume apixaban until stable from surgical stand point. (12) Bradycardia: Status: Resolved Assessment and plan: Resolved off beta blockers. Continue to monitor. (13) CHF (congestive heart failure): Status: Chronic Assessment and plan: Currently near euvolemic. Will diurese as needed - not requiring today (14) Hypoventilation associated with obesity syndrome: Status: Chronic Assessment and plan: Tolerating trilogy - his lab values immediately show benefit. Continue to encourage trilogy when asleep. (15) Hypertension: Status: Chronic Assessment and plan: Better with current therapy. (amlodipine, terazosin, hydralazine). Continue to monitor. Will try to avoid metoprolol due to bradycardia. Qualifiers: Hypertension type: essential hypertension Qualified Code(s): I10 - Essential (primary) hypertension (16) Ulcer of left lower leg: Status: Chronic Assessment and plan: Continue wound care with Mepilex. Qualifiers: Non-pressure ulcer stage: limited to breakdown of skin Qualified Code(s): L97.921 - Non-pressure chronic ulcer of unspecified part of left lower leg limited to breakdown of skin (17) DVT prophylaxis: Status: Acute Assessment and plan: S/p IVC filter. Lovenox SC (18) Discharge planning issues: Status: Acute Assessment and plan: Full code. Continues to require hospitalization. Transferred out to [facility] on 08/04/2019. Subjective Subjective Patient reports: feels better; denies vomiting, shortness of breath and fever Interval history since last seen: 24 hr: Made NPO again 08/06/19 and given TPN, stress dose steroids for concern repeat SBO Feels better today. Per nursing abdomen much less distended. Increased output in the ostomy bag. He is hungry and would like to progress his diet. He was complaining of some nausea this morning, but not since around breakfast time. Sacral wound looks a little worse this morning per nursing as had lost suction, but this was fixed this morning. Exam Narrative Exam Narrative: General: Pleasant obese male, awake, A&Ox3, looks to be at his baseline HEENT: EOMI, MMM, clear, no icterus. Heart: RRR, no m/r/g Lungs: CTAB bilaterally, normal effort Abdomen: soft, + bowel sounds, nontender. Ostomy with green output Skin: Sacral wound with VAC dressing placed with some surrounding erythema. Extremities: +1 BLE edema, unchanged, R>L; B chronic venous stasis changes; LLE tibial surface dressed - c/d/, L foot wound dressed, c/d/i. Objective Objective Clinical Data: Abnormal lab results 08/07/19 08/07/19 Range/Units 06:34 06:34 RBC 3.99 L (4.50-6.00) m/cumm Hgb 9.3 L (13.5-17.5) g/dL Hct 30.9 L (40.0-50.0) % MCV 77.4 L (80-95) fL MCH 23.3 L (27.0-33.0) pg MCHC 30.1 L (32.0-36.0) g/dL RDW 20.3 H (11.8-14.1) % Absolute Lymphocytes 1.03 L (1.2-3.4) k/cumm BUN 37 H (7-18) mg/dL Creatinine 1.61 H (0.70-1.30) mg/dL Glucose 230 H (74-106) mg/dL Vital Signs Temperature 36.1 C L 08/07/19 14:22 Temperature Source Tympanic 08/07/19 14:22 Pulse 85 08/07/19 14:22 Pulse Rhythm Regular 08/07/19 12:35 Pulse 86 08/04/19 20:04 Respiratory Rate 18 08/07/19 14:22 Respiratory Effort Non-Labored 08/07/19 12:35 Respiratory Depth Normal 08/07/19 12:35 Respiratory Pattern Normal 08/07/19 12:35 Blood Pressure 158/86 H 08/07/19 14:22 Blood Pressure Mean 109 08/04/19 20:04 Blood Pressure Position Supine 08/04/19 15:06 Pulse Oximetry 97 08/07/19 14:22 Oxygen Delivery Method Room Air 08/07/19 14:22 Oxygen Flow Rate 0 08/07/19 14:22 Pain Level 0 08/07/19 14:22 Comment 08/02/19 08:56 Intake & Output 08/06/19 08/07/19 08/07/19 23:59 11:59 23:59 Intake Total 450 / 1130 120 / 720 600 / 720 Output Total 1080 / 2305 850 / 1550 700 / 1550 Balance -630 / -1175 -730 / -830 -100 / -830 Intake: IV 450 / 650 120 / 120 Oral 600 / 600 Output: Urine 900 / 1450 700 / 1250 550 / 1250 Stool 180 / 780 150 / 300 150 / 300 Other: Urine Color Yellow Yellow Yellow Urine Appearance Clear Clear Clear Laboratory Results WBC 7.77 k/cumm (4.4-10.8) 08/07/19 06:34 RBC 3.99 m/cumm (4.50-6.00) L 08/07/19 06:34 Hgb 9.3 g/dL (13.5-17.5) L 08/07/19 06:34 Hct 30.9 % (40.0-50.0) L 08/07/19 06:34 MCV 77.4 fL (80-95) L 08/07/19 06:34 MCH 23.3 pg (27.0-33.0) L 08/07/19 06:34 MCHC 30.1 g/dL (32.0-36.0) L 08/07/19 06:34 RDW 20.3 % (11.8-14.1) H 08/07/19 06:34 Plt Count 231 x1000/uL (130-400) 08/07/19 06:34 MPV 10.5 fL (8.0-11.0) 08/07/19 06:34 Immature Gran % 1.8 % 08/07/19 06:34 Neutrophils % 77.2 08/07/19 06:34 Band Neutrophils % Cancelled 08/03/19 06:20 Lymphocytes % 13.3 08/07/19 06:34 Atypical Lymphs % Cancelled 08/03/19 06:20 Monocytes % 6.6 08/07/19 06:34 Eosinophils % 1.0 08/07/19 06:34 Basophils % 0.1 08/07/19 06:34 Metamyelocytes % Cancelled 08/03/19 06:20 Myelocytes % Cancelled 08/03/19 06:20 Promyelocytes % Cancelled 08/03/19 06:20 Absolute Neutrophils 6.00 k/cumm (1.2-6.7) 08/07/19 06:34 Absolute Lymphocytes 1.03 k/cumm (1.2-3.4) L 08/07/19 06:34 Absolute Monocytes 0.51 k/cumm (0.11-0.7) 08/07/19 06:34 Absolute Eosinophils 0.08 k/cumm (0.0-0.7) 08/07/19 06:34 Absolute Basophils 0.01 k/cumm (0.0-0.2) 08/07/19 06:34 Nucleated RBCs Cancelled 08/03/19 06:20 Differential Comment Rbc morph reviewed 08/06/19 07:15 Other Cell Type Cancelled 08/03/19 06:20 RBC Morphology See below 08/06/19 07:15 Polychromasia Cancelled 08/03/19 06:20 Hypochromasia 3+ 08/06/19 07:15 Poikilocytosis Cancelled 08/03/19 06:20 Basophilic Stippling Present 08/06/19 07:15 Anisocytosis 2+ 08/06/19 07:15 Microcytosis 3+ 08/06/19 07:15 Macrocytosis Cancelled 08/03/19 06:20 Spherocytes Cancelled 08/03/19 06:20 Target Cells Cancelled 08/03/19 06:20 Tear Drop Cells Cancelled 08/03/19 06:20 Ovalocytes 2+ 08/06/19 07:15 Stomatocytes Cancelled 08/03/19 06:20 Glover-[place] Bodies Cancelled 08/03/19 06:20 [place] Cells Cancelled 08/03/19 06:20 Acanthocytes (Spur) Cancelled 08/03/19 06:20 Schistocytes Cancelled 08/03/19 06:20 ESR 55 mm/hr (1-20) H 07/24/19 18:10 PT 10.9 sec (9.3-11.0) 08/02/19 07:20 INR 1.1 (0.9-1.1) 08/02/19 07:20 APTT 26.4 sec (21.0-31.4) 07/24/19 18:10 ABG Sample Site Left radial 07/30/19 08:30 ABG pH 7.32 (7.35-7.45) L 07/30/19 08:30 ABG pCO2 53 mmHg (34-47) H 07/30/19 08:30 ABG pO2 117 mmHg (83-108) H 07/30/19 08:30 ABG HCO3 27 mmol/L (22-28) 07/30/19 08:30 ABG Total CO2 26 mmol/L (22-29) 07/30/19 08:30 ABG O2 Saturation 99 % (94-98) H 07/30/19 08:30 ABG Base Excess 0.7 mmol/L (-3-3) 07/30/19 08:30 Oxygen Liter Flow 2 L 07/30/19 08:30 Sodium 137 mmol/L (136-145) 08/07/19 06:34 Potassium 3.9 mmol/L (3.5-5.1) 08/07/19 06:34 Chloride 104 mmol/L (98-107) 08/07/19 06:34 Carbon Dioxide 25.9 mmol/L (21.0-32.0) 08/07/19 06:34 Anion Gap 7.1 mmol/L (3-11) 08/07/19 06:34 BUN 37 mg/dL (7-18) H 08/07/19 06:34 Creatinine 1.61 mg/dL (0.70-1.30) H 08/07/19 06:34 Estimated GFR/1.73 m2 43.99 (mL/min/1.73m2) 08/07/19 06:34 Glucose 230 mg/dL (74-106) H 08/07/19 06:34 Lactate 0.7 mmol/L (0.6-1.4) 07/30/19 15:40 Calcium 8.7 mg/dL (8.5-10.1) 08/07/19 06:34 Phosphorus 2.2 mg/dL (2.6-4.7) L 08/02/19 06:05 Magnesium 2.1 mg/dL (1.8-2.4) 08/07/19 06:34 Iron 42 ug/dL (65-175) L 07/29/19 06:45 TIBC 157 ug/dL (250-450) L 07/29/19 06:45 Transferrin % Sat 27 % (20-55) 07/29/19 06:45 Ferritin 660 ng/mL (26-388) H 07/29/19 06:45 Total Bilirubin 0.6 mg/dL (0.2-1.0) 08/02/19 06:05 AST 17 U/L (15-37) 08/02/19 06:05 ALT 18 U/L (16-63) 08/02/19 06:05 Alkaline Phosphatase 88 U/L (46-116) 08/02/19 06:05 Troponin I < 0.05 ng/mL (<0.06) 08/01/19 12:25 C-Reactive Protein < 0.05 mg/dL (0.0-0.3) 08/05/19 06:30 Total Protein 5.4 g/dL (6.4-8.2) L 08/02/19 06:05 Albumin 2.3 g/dL (3.4-5.0) L 08/02/19 06:05 Prealbumin 25 mg/dL (20-40) 08/02/19 06:05 Lipase 25 U/L (73-393) 08/05/19 06:30 Tumor Marker AFP <2.5 ng/mL (<8.1) 07/27/19 06:35 Carcinoembryonic Ag 1.5 ng/ml (See Note) 07/26/19 06:45 Procalcitonin 0.1 ng/mL 08/05/19 06:30 TSH 0.28 uIU/mL (0.36-3.74) L 07/24/19 18:10 Free T4 1.20 ng/dL (0.76-1.46) 07/24/19 18:10 Urine Color Yellow (Yellow) 08/02/19 14:10 Urine Clarity Clear (Clear) 08/02/19 14:10 Urine pH 6.5 (5-8) 08/02/19 14:10 Ur Specific [place] 1.015 (1.005-1.025) 08/02/19 14:10 Urine Protein 100 mg/dL (Negative) H 08/02/19 14:10 Urine Ketones Negative mg/dL (Negative) 08/02/19 14:10 Urine Blood Trace-intact (Negative) H 08/02/19 14:10 Urine Nitrite Negative (Negative) 08/02/19 14:10 Urine Bilirubin Negative (Negative) 08/02/19 14:10 Urine Urobilinogen 0.2 EU/dL (Up TO 0.2) 08/02/19 14:10 Ur Leukocyte Esterase Negative (Negative) 08/02/19 14:10 Urine RBC 0-2 HPF (0-2) 08/02/19 14:10 Urine WBC 5-10 HPF (0-5) 08/02/19 14:10 Ur Epithelial Cells Few HPF (Negative) 08/02/19 14:10 Urine Crystals Negative HPF (Negative) 08/02/19 14:10 Urine Bacteria Few HPF (Negative) 08/02/19 14:10 Urine Casts 0-2 hyaline LPF (Negative) 08/02/19 14:10 Urine Mucus Negative (Negative) 08/02/19 14:10 Urine Other Few transitional (Negative) 08/02/19 14:10 Ur Culture Indicated? Yes 08/02/19 14:10 Urine Glucose 250 mg/dL (Negative) H 08/02/19 14:10 Vancomycin Trough 17.4 ug/mL (10.0-20.0) 08/05/19 11:15 c-ANCA Negative (Negative) 07/27/19 06:35 p-ANCA Negative (Negative) 07/27/19 06:35 COVID-19 PCR Negative (Negative) 07/24/19 21:45 Nasopharyn COVID-19 PCR Not Applicable 07/24/19 21:45 Ref Test Perform Site [facility] lab 07/24/19 21:45 Patient ABO/Rh AB Negative 07/25/19 10:55 Antibody Screen Negative 07/25/19 10:55
--- NOTE | 2019-08-07 16:14 | CMPROGNOTE_ITS ---
- If Service Date Differs Date of service: 08/07/19 Time of Service: 16:14 Care Management Progress Note S/O: Brendan was reviewed at interdisciplinary rounds. He was sleeping when CM attempted to meet with him. Per report, there was concern for a recurrence of SBO, but it has improved today. His diet was advanced to clears at lunch today. He remains on IV abx for MRSA bacteremia. CM will continue to follow. A: Brendan is a 59 year old man admitted from the [facility] on 07/24/19 with UTI and a sacral ulcer P: Brendan will need superintendent container terminal IV antibiotic therapy to treat the infected decubitus ulcer he presented with. Since the [facility] is unable to provide this service, he will likely need to transition to SB-1 status at some point. Ultimately, Brendan will return to the [facility] when treatment is complete. CM will continue to support Brendan and his discharge planning concerns and will update his sister as needed.
[2019-08-07 20:07] VITALS: BP 150/78; PULSE 68; RESP 20; TEMP 36.3; O2SAT 98
[2019-08-07] MEDS: Levothyroxine 25 MCG TAB 12.5 MCG PO (21:53)
[2019-08-07] MEDS: risperiDONE 0.5 MG TAB 1.5 MG PO (21:53)
[2019-08-07] MEDS: Insulin Glargine 300 UNITS/3 ML PEN 15 UNITS SC (22:00)
[2019-08-07] MEDS: LORazepam 1 MG TAB PO (23:48)
[2019-08-07 23:52] VITALS: BP 147/86; PULSE 65; RESP 18; TEMP 36.5; O2SAT 96
[2019-08-08 03:45] VITALS: BP 160/73; PULSE 61; RESP 17; TEMP 36.5; O2SAT 98
[2019-08-08] MEDS: Calcium 600mg/Vit D 200U TAB 1 TAB PO ×2 (05:28→17:14)
[2019-08-08] MEDS: ACETAMINOPHEN 1,000 MG/100 ML BTL 400 MG IVPB ×3 (05:28→23:05)
[2019-08-08 05:40] VITALS: BP 148/68; PULSE 77; RESP 18; TEMP 36.9; O2SAT 97
[2019-08-08] MEDS: VANCOMYCIN 1,000 MG in Normal Saline 250 ML 167 MG IV (06:39)
[2019-08-08] MEDS: Protein Nutritional Supplement 16 GM 1 OUNCE PACKET PO ×3 (08:13→20:06)
[2019-08-08] MEDS: Pantoprazole 40 MG VIAL IVP (08:14)
[2019-08-08] MEDS: Insulin Aspart 300 UNITS/3 ML PEN SC ×4 (08:15→23:06)
[2019-08-08] MEDS: Normal Saline Flush 10 ML SYR IVP ×2 (08:15→10:43)
[2019-08-08] MEDS: Lactobacillus Acidophilus CAP 1 CAP PO ×3 (08:16→20:04)
[2019-08-08] MEDS: hydrALAZINE 25 MG TAB 50 MG PO ×4 (08:16→20:04)
[2019-08-08] MEDS: Venlafaxine 37.5 MG CAPCR 112.5 MG PO (08:16)
[2019-08-08] MEDS: Ascorbic Acid 500 MG TAB 250 MG PO ×2 (08:16→20:06)
[2019-08-08] MEDS: Gabapentin 300 MG CAP PO ×3 (08:16→20:05)
[2019-08-08] MEDS: Terazosin 2 MG CAP 4 MG PO ×2 (08:16→20:04)
[2019-08-08] MEDS: amLODIPine 5 MG TAB 10 MG PO (08:17)
[2019-08-08] MEDS: Ferrous Sulfate 325 MG TAB PO ×2 (08:18→20:05)
[2019-08-08 08:47] VITALS: BP 151/82; PULSE 70; RESP 14; TEMP 37; O2SAT 94
[2019-08-08 08:49] LABS: HCT 26.9 % (40.0-50.0); HGB 8.1 g/dL (13.5-17.5); Mean Corp. HGB Concentration 30.1 g/dL (32.0-36.0); Mean Corpuscular Hemoglobin 23.8 pg (27.0-33.0); Mean Corpuscular Volume 78.9 fL (80-95); Mean Platelet Volume 10.1 fL (8.0-11.0); Platelet Count 211 x1000/uL (130-400); RBC 3.41 m/cumm (4.50-6.00); RBC Distribution Width 20.6 % (11.8-14.1)
[2019-08-08 08:57] LABS: Anion Gap 5.9 mmol/L (3-11); BUN 35 mg/dL (7-18); CO2 24.1 mmol/L (21.0-32.0); CREATININE 1.46 mg/dL (0.70-1.30); Calcium 7.4 mg/dL (8.5-10.1); Chloride 108 mmol/L (98-107); Estimated GFR 49.25 (mL/min/1.73m2); Glucose 144 mg/dL (74-106); Magnesium 1.8 mg/dL (1.8-2.4); PHOSPHORUS 2.6 mg/dL (2.6-4.7); Potassium 3.7 mmol/L (3.5-5.1); Sodium 138 mmol/L (136-145)
--- NOTE | 2019-08-08 10:12 | PDOC.CMPRO ---
- If Service Date Differs Date of service: 08/08/19 Time of Service: 10:12 Care Management Progress Note S/O: Brendan was reviewed at interdisciplinary rounds. Per report, he is now tolerating clears, so his diet will be advanced today. Brendan is asking for PT to work with him, as he is not moving around very much currently, and he is experiencing pain. Per RT, he did not wear his trilogy machine last night, which can be very detrimental to his condition. CM will continue to follow. A: Brendan is a 59 year old man admitted from the [facility] on 07/24/19 with UTI and a sacral ulcer P: Brendan will need mcc IV antibiotic therapy to treat the infected decubitus ulcer he presented with. Since the [facility] is unable to provide this service, he will likely need to transition to SB-1 status at some point. Ultimately, Brendan will return to the [facility] when treatment is complete. CM will continue to support Brendan and his discharge planning concerns and will update his sister as needed.
[2019-08-08] MEDS: Hydrocortisone SOD SUC. 100 MG VIAL 50 MG IVP ×2 (10:43→23:02)
[2019-08-08] MEDS: Enoxaparin 120 MG/0.8 ML SYR 110 MG SC ×2 (10:43→23:03)
[2019-08-08 12:08] VITALS: BP 156/74; PULSE 61; RESP 20; TEMP 36.5; O2SAT 97
--- NOTE | 2019-08-08 13:06 | W.PM.PROGNOT ---
Date of Service Date of service: 08/08/19 Time of Service: 13:06 Assessment and Plan Assessment and plan (1) Persistent vomiting in adult patient: Status: Acute Assessment and plan: Agree with stopping TPN and advancing to full liquids. Can advance to soft diet tomorrow if he tolerates. Subjective Subjective Interval history since last seen: Tolerating clears No vomiting Good ostomy output Objective Objective Clinical Data: Abnormal lab results 08/08/19 08/08/19 Range/Units 08:30 08:30 RBC 3.41 L (4.50-6.00) m/cumm Hgb 8.1 L (13.5-17.5) g/dL Hct 26.9 L (40.0-50.0) % MCV 78.9 L (80-95) fL MCH 23.8 L (27.0-33.0) pg MCHC 30.1 L (32.0-36.0) g/dL RDW 20.6 H (11.8-14.1) % Chloride 108 H (98-107) mmol/L BUN 35 H (7-18) mg/dL Creatinine 1.46 H (0.70-1.30) mg/dL Glucose 144 H D (74-106) mg/dL Calcium 7.4 L (8.5-10.1) mg/dL Vital Signs Temperature 97.7 F 08/08/19 12:08 Temperature Source Tympanic 08/08/19 12:08 Pulse 61 08/08/19 12:08 Pulse Rhythm Regular 08/08/19 11:25 Pulse 86 08/04/19 20:04 Respiratory Rate 20 08/08/19 12:08 Respiratory Effort Non-Labored 08/08/19 11:25 Respiratory Depth Normal 08/08/19 11:25 Respiratory Pattern Normal 08/08/19 11:25 Blood Pressure 156/74 H 08/08/19 12:08 Blood Pressure Mean 109 08/04/19 20:04 Blood Pressure Position Supine 08/04/19 15:06 Pulse Oximetry 97 08/08/19 12:08 Oxygen Delivery Method Room Air 08/08/19 12:08 Oxygen Flow Rate 0 08/08/19 12:08 Pain Level 0 08/08/19 12:08 Comment 08/08/19 03:45 Intake & Output 08/07/19 08/08/19 08/08/19 23:59 11:59 23:59 Intake Total 4458.667 / 4578.667 430 / 1960 1530 / 1960 Output Total 1700 / 2550 1200 / 1200 Balance 2758.667 / 2028.667 -770 / 760 1530 / 760 Intake: IV 2718.667 / 2838.667 230 / 230 Oral 1740 / 1740 200 / 1730 1530 / 1730 Output: Urine 1400 / 2100 1200 / 1200 Stool 300 / 450 Other: Urine Color Yellow Yellow Urine Appearance Clear Clear Emesis Description None Laboratory Results WBC 7.80 k/cumm (4.4-10.8) 08/08/19 08:30 RBC 3.41 m/cumm (4.50-6.00) L 08/08/19 08:30 Hgb 8.1 g/dL (13.5-17.5) L 08/08/19 08:30 Hct 26.9 % (40.0-50.0) L 08/08/19 08:30 MCV 78.9 fL (80-95) L 08/08/19 08:30 MCH 23.8 pg (27.0-33.0) L 08/08/19 08:30 MCHC 30.1 g/dL (32.0-36.0) L 08/08/19 08:30 RDW 20.6 % (11.8-14.1) H 08/08/19 08:30 Plt Count 211 x1000/uL (130-400) 08/08/19 08:30 MPV 10.1 fL (8.0-11.0) 08/08/19 08:30 Immature Gran % 1.8 % 08/07/19 06:34 Neutrophils % 77.2 08/07/19 06:34 Band Neutrophils % Cancelled 08/03/19 06:20 Lymphocytes % 13.3 08/07/19 06:34 Atypical Lymphs % Cancelled 08/03/19 06:20 Monocytes % 6.6 08/07/19 06:34 Eosinophils % 1.0 08/07/19 06:34 Basophils % 0.1 08/07/19 06:34 Metamyelocytes % Cancelled 08/03/19 06:20 Myelocytes % Cancelled 08/03/19 06:20 Promyelocytes % Cancelled 08/03/19 06:20 Absolute Neutrophils 6.00 k/cumm (1.2-6.7) 08/07/19 06:34 Absolute Lymphocytes 1.03 k/cumm (1.2-3.4) L 08/07/19 06:34 Absolute Monocytes 0.51 k/cumm (0.11-0.7) 08/07/19 06:34 Absolute Eosinophils 0.08 k/cumm (0.0-0.7) 08/07/19 06:34 Absolute Basophils 0.01 k/cumm (0.0-0.2) 08/07/19 06:34 Nucleated RBCs Cancelled 08/03/19 06:20 Differential Comment Rbc morph reviewed 08/06/19 07:15 Other Cell Type Cancelled 08/03/19 06:20 RBC Morphology See below 08/06/19 07:15 Polychromasia Cancelled 08/03/19 06:20 Hypochromasia 3+ 08/06/19 07:15 Poikilocytosis Cancelled 08/03/19 06:20 Basophilic Stippling Present 08/06/19 07:15 Anisocytosis 2+ 08/06/19 07:15 Microcytosis 3+ 08/06/19 07:15 Macrocytosis Cancelled 08/03/19 06:20 Spherocytes Cancelled 08/03/19 06:20 Target Cells Cancelled 08/03/19 06:20 Tear Drop Cells Cancelled 08/03/19 06:20 Ovalocytes 2+ 08/06/19 07:15 Stomatocytes Cancelled 08/03/19 06:20 Glover-[place] Bodies Cancelled 08/03/19 06:20 [place] Cells Cancelled 08/03/19 06:20 Acanthocytes (Spur) Cancelled 08/03/19 06:20 Schistocytes Cancelled 08/03/19 06:20 ESR 55 mm/hr (1-20) H 07/24/19 18:10 PT 10.9 sec (9.3-11.0) 08/02/19 07:20 INR 1.1 (0.9-1.1) 08/02/19 07:20 APTT 26.4 sec (21.0-31.4) 07/24/19 18:10 ABG Sample Site Left radial 07/30/19 08:30 ABG pH 7.32 (7.35-7.45) L 07/30/19 08:30 ABG pCO2 53 mmHg (34-47) H 07/30/19 08:30 ABG pO2 117 mmHg (83-108) H 07/30/19 08:30 ABG HCO3 27 mmol/L (22-28) 07/30/19 08:30 ABG Total CO2 26 mmol/L (22-29) 07/30/19 08:30 ABG O2 Saturation 99 % (94-98) H 07/30/19 08:30 ABG Base Excess 0.7 mmol/L (-3-3) 07/30/19 08:30 Oxygen Liter Flow 2 L 07/30/19 08:30 Sodium 138 mmol/L (136-145) 08/08/19 08:30 Potassium 3.7 mmol/L (3.5-5.1) 08/08/19 08:30 Chloride 108 mmol/L (98-107) H 08/08/19 08:30 Carbon Dioxide 24.1 mmol/L (21.0-32.0) 08/08/19 08:30 Anion Gap 5.9 mmol/L (3-11) 08/08/19 08:30 BUN 35 mg/dL (7-18) H 08/08/19 08:30 Creatinine 1.46 mg/dL (0.70-1.30) H 08/08/19 08:30 Estimated GFR/1.73 m2 49.25 (mL/min/1.73m2) 08/08/19 08:30 Glucose 144 mg/dL (74-106) H D 08/08/19 08:30 Lactate 0.7 mmol/L (0.6-1.4) 07/30/19 15:40 Calcium 7.4 mg/dL (8.5-10.1) L 08/08/19 08:30 Phosphorus 2.6 mg/dL (2.6-4.7) 08/08/19 08:30 Magnesium 1.8 mg/dL (1.8-2.4) 08/08/19 08:30 Iron 42 ug/dL (65-175) L 07/29/19 06:45 TIBC 157 ug/dL (250-450) L 07/29/19 06:45 Transferrin % Sat 27 % (20-55) 07/29/19 06:45 Ferritin 660 ng/mL (26-388) H 07/29/19 06:45 Total Bilirubin 0.6 mg/dL (0.2-1.0) 08/02/19 06:05 AST 17 U/L (15-37) 08/02/19 06:05 ALT 18 U/L (16-63) 08/02/19 06:05 Alkaline Phosphatase 88 U/L (46-116) 08/02/19 06:05 Troponin I < 0.05 ng/mL (<0.06) 08/01/19 12:25 C-Reactive Protein < 0.05 mg/dL (0.0-0.3) 08/05/19 06:30 Total Protein 5.4 g/dL (6.4-8.2) L 08/02/19 06:05 Albumin 2.3 g/dL (3.4-5.0) L 08/02/19 06:05 Prealbumin 25 mg/dL (20-40) 08/02/19 06:05 Lipase 25 U/L (73-393) 08/05/19 06:30 Tumor Marker AFP <2.5 ng/mL (<8.1) 07/27/19 06:35 Carcinoembryonic Ag 1.5 ng/ml (See Note) 07/26/19 06:45 Procalcitonin 0.1 ng/mL 08/05/19 06:30 TSH 0.28 uIU/mL (0.36-3.74) L 07/24/19 18:10 Free T4 1.20 ng/dL (0.76-1.46) 07/24/19 18:10 Urine Color Yellow (Yellow) 08/02/19 14:10 Urine Clarity Clear (Clear) 08/02/19 14:10 Urine pH 6.5 (5-8) 08/02/19 14:10 Ur Specific [place] 1.015 (1.005-1.025) 08/02/19 14:10 Urine Protein 100 mg/dL (Negative) H 08/02/19 14:10 Urine Ketones Negative mg/dL (Negative) 08/02/19 14:10 Urine Blood Trace-intact (Negative) H 08/02/19 14:10 Urine Nitrite Negative (Negative) 08/02/19 14:10 Urine Bilirubin Negative (Negative) 08/02/19 14:10 Urine Urobilinogen 0.2 EU/dL (Up TO 0.2) 08/02/19 14:10 Ur Leukocyte Esterase Negative (Negative) 08/02/19 14:10 Urine RBC 0-2 HPF (0-2) 08/02/19 14:10 Urine WBC 5-10 HPF (0-5) 08/02/19 14:10 Ur Epithelial Cells Few HPF (Negative) 08/02/19 14:10 Urine Crystals Negative HPF (Negative) 08/02/19 14:10 Urine Bacteria Few HPF (Negative) 08/02/19 14:10 Urine Casts 0-2 hyaline LPF (Negative) 08/02/19 14:10 Urine Mucus Negative (Negative) 08/02/19 14:10 Urine Other Few transitional (Negative) 08/02/19 14:10 Ur Culture Indicated? Yes 08/02/19 14:10 Urine Glucose 250 mg/dL (Negative) H 08/02/19 14:10 Vancomycin Trough 17.4 ug/mL (10.0-20.0) 08/05/19 11:15 c-ANCA Negative (Negative) 07/27/19 06:35 p-ANCA Negative (Negative) 07/27/19 06:35 COVID-19 PCR Negative (Negative) 07/24/19 21:45 Nasopharyn COVID-19 PCR Not Applicable 07/24/19 21:45 Ref Test Perform Site [facility] lab 07/24/19 21:45 Patient ABO/Rh AB Negative 07/25/19 10:55 Antibody Screen Negative 07/25/19 10:55
--- NOTE | 2019-08-08 16:17 | PGE_ITS ---
Date of Service Date of service: 08/08/19 Time of Service: 14:17 Assessment and Plan Assessment and plan (1) SBO (small bowel obstruction): Status: Acute Assessment and plan: Concern for recurrence of SBO on August 05, but clearly improving. Diet progressed to full liquid diet at lunch after checking in again with Dr. Sandhu. Will progress to regular diet tomorrow if he tolerates this. Per surgery, the patient is not a surgical candidate, should he worsen. (2) Ventricular escape rhythm: Status: Chronic Assessment and plan: Evaluated by cardiology - felt to be benign and a reflection of electrolyte abnormalities/JESSICA. Tele d/c'ed. Patient is s/p negative MPI in 12/2018 ([facility] [place] No further ischemic workup is indicated at this time, no change today (3) Hypokalemia: Status: Resolved Assessment and plan: Continue to replace and fluids. (4) MRSA bacteremia: Status: Acute Assessment and plan: On blood cultures 07/24/2019, cleared on blood cultures on 07/27/2019. Likely source is the decubitous wound (present on admission). Pathology not clearly showing Crohn's. Continue vancomycin x 4 weeks since negative blood cultures. Expected end date is 08/23/2019. no evidence of endocarditis on echo. (5) Decubitus ulcer, stage 4 with infection: Status: Acute Assessment and plan: s/p surgical debridement on and 07/26/2019. Surgical wound cx with MRSA. As above - no clear evidence of fistula formation/Crohn's activity on pathology. Continue wound vac. Continue vancomycin. Continue MVI, vitamin C, zinc supplementation per nutrition. Offload/mobilize as able, PT ordered today to help patient contribute more to his offloading and overall care. (6) ESBL (extended spectrum beta-lactamase) producing bacteria infection: Status: Resolved Assessment and plan: UTI Due to ESBL E. Coli, present on admission, now s/p ruiz. Doing well off meropenem. (7) Adrenal insufficiency: Status: Chronic Assessment and plan: Tapered hydrocortisone to 50 mg twice daily yesterday. assistant floor covering printer to prednisone tomorrow morning (8) CAD (coronary artery disease): Status: Chronic Assessment and plan: Neg MPI in 12/2018. No further plans for ischemic workup at this time. Tele d/c'ed. (9) Atrial flutter, paroxysmal: Status: Chronic Assessment and plan: In NSR at this time with PVCs. On anticoagulation chronically but being held currently. Tele d/c'ed. (10) Diabetes mellitus: Status: Chronic Assessment and plan: Continue to adjust basal bolus insulin as steroids are getting tapered. . Qualifiers: Diabetes mellitus type: type 2 Diabetes mellitus terminal operations manager insulin use: with terminal operations manager use Diabetes mellitus complication status: with neurologic complications Diabetes mellitus complication detail: with polyneuropathy Qualified Code(s): E11.42 - Type 2 diabetes mellitus with diabetic polyneuropathy; Z79.4 - longterm (current) use of insulin (11) History of DVT (deep vein thrombosis): Status: Acute Assessment and plan: S/p IVC filter. Continue lovenox trial for now - would resume apixaban possibly tomorrow if continues to be stable from surgical stand point. (12) Bradycardia: Status: Resolved Assessment and plan: Resolved off beta blockers. Continue to monitor. (13) CHF (congestive heart failure): Status: Chronic Assessment and plan: Currently near euvolemic. Continue furosemide. (14) Hypoventilation associated with obesity syndrome: Status: Chronic Assessment and plan: Tolerating trilogy - his lab values immediately show benefit. Continue to encourage trilogy when asleep. Emphasized with nursing team importance of trilogy use overnight to avoid hypercapnia. (15) Hypertension: Status: Chronic Assessment and plan: Better with current therapy. (amlodipine, terazosin, hydralazine). Continue to monitor. Will avoid metoprolol due to bradycardia. Qualifiers: Hypertension type: essential hypertension Qualified Code(s): I10 - Essential (primary) hypertension (16) Ulcer of left lower leg: Status: Chronic Assessment and plan: Continue wound care with Mepilex. Qualifiers: Non-pressure ulcer stage: limited to breakdown of skin Qualified Code(s): L97.921 - Non-pressure chronic ulcer of unspecified part of left lower leg limited to breakdown of skin (17) DVT prophylaxis: Status: Acute Assessment and plan: S/p IVC filter. Lovenox SC (18) Discharge planning issues: Status: Acute Assessment and plan: Full code. Continues to require hospitalization. Transferred out to [facility] on 08/04/2019, but on floor. Subjective Subjective Patient reports: no new complaints, feels better and tolerating liquids well; denies blood in stool, shortness of breath and fever Interval history since last seen: 24 hours: Again stopped and been clear diet. Respiratory, patient not wear trilogy overnight and was difficult to arouse this morning Patient feels well this afternoon. He is hungry and would like to have some protein shakes and possibly real food by tomorrow if the shakes go well. Denies nausea or vomiting. Feels like he would like help moving around in bed more to get pressure off his sacral ulcer and offers to work with physical therapy. Exam Narrative Exam Narrative: General: Pleasant male, awake, A&O, looks to be at his baseline HEENT: EOMI, MMM, clear, no icterus. Heart: RRR, no m/r/g Lungs: CTAB bilaterally, normal effort Abdomen: soft, + bowel sounds, nontender. Ostomy with green/brown output Skin: Sacral wound with VAC dressing placed with some surrounding erythema. Extremities: Trace BLE edema, R>L; B chronic venous stasis changes; LLE tibial surface dressed - c/d/, L foot wound dressed, c/d/i. Objective Objective Clinical Data: Abnormal lab results 08/08/19 08/08/19 Range/Units 08:30 08:30 RBC 3.41 L (4.50-6.00) m/cumm Hgb 8.1 L (13.5-17.5) g/dL Hct 26.9 L (40.0-50.0) % MCV 78.9 L (80-95) fL MCH 23.8 L (27.0-33.0) pg MCHC 30.1 L (32.0-36.0) g/dL RDW 20.6 H (11.8-14.1) % Chloride 108 H (98-107) mmol/L BUN 35 H (7-18) mg/dL Creatinine 1.46 H (0.70-1.30) mg/dL Glucose 144 H D (74-106) mg/dL Calcium 7.4 L (8.5-10.1) mg/dL Vital Signs Temperature 36.5 C 08/08/19 12:08 Temperature Source Tympanic 08/08/19 12:08 Pulse 61 08/08/19 12:08 Pulse Rhythm Regular 08/08/19 16:10 Pulse 86 06/10/20 20:04 Respiratory Rate 20 08/08/19 12:08 Respiratory Effort Non-Labored 08/08/19 16:10 Respiratory Depth Normal 08/08/19 16:10 Respiratory Pattern Normal 08/08/19 16:10 Blood Pressure 156/74 H 08/08/19 12:08 Blood Pressure Mean 109 08/04/19 20:04 Blood Pressure Position Supine 08/04/19 15:06 Pulse Oximetry 97 08/08/19 12:08 Oxygen Delivery Method Room Air 08/08/19 12:08 Oxygen Flow Rate 0 08/08/19 12:08 Pain Level 0 08/08/19 12:08 Comment 08/08/19 03:45 Intake & Output 08/07/19 08/08/19 08/08/19 23:59 11:59 23:59 Intake Total 4458.667 / 4578.667 430 / 1960 1530 / 1960 Output Total 1700 / 2550 1200 / 2450 1250 / 2450 Balance 2758.667 / 2028.667 -770 / -490 280 / -490 Intake: IV 2718.667 / 2838.667 230 / 230 Oral 1740 / 1740 200 / 1730 1530 / 1730 Output: Urine 1400 / 2100 1200 / 2450 1250 / 2450 Stool 300 / 450 Other: Urine Color Yellow Yellow Yellow Urine Appearance Clear Clear Clear Emesis Description None Laboratory Results WBC 7.80 k/cumm (4.4-10.8) 08/08/19 08:30 RBC 3.41 m/cumm (4.50-6.00) L 08/08/19 08:30 Hgb 8.1 g/dL (13.5-17.5) L 08/08/19 08:30 Hct 26.9 % (40.0-50.0) L 08/08/19 08:30 MCV 78.9 fL (80-95) L 08/08/19 08:30 MCH 23.8 pg (27.0-33.0) L 08/08/19 08:30 MCHC 30.1 g/dL (32.0-36.0) L 08/08/19 08:30 RDW 20.6 % (11.8-14.1) H 08/08/19 08:30 Plt Count 211 x1000/uL (130-400) 08/08/19 08:30 MPV 10.1 fL (8.0-11.0) 08/08/19 08:30 Immature Gran % 1.8 % 08/07/19 06:34 Neutrophils % 77.2 08/07/19 06:34 Band Neutrophils % Cancelled 08/03/19 06:20 Lymphocytes % 13.3 08/07/19 06:34 Atypical Lymphs % Cancelled 08/03/19 06:20 Monocytes % 6.6 08/07/19 06:34 Eosinophils % 1.0 08/07/19 06:34 Basophils % 0.1 08/07/19 06:34 Metamyelocytes % Cancelled 08/03/19 06:20 Myelocytes % Cancelled 08/03/19 06:20 Promyelocytes % Cancelled 08/03/19 06:20 Absolute Neutrophils 6.00 k/cumm (1.2-6.7) 08/07/19 06:34 Absolute Lymphocytes 1.03 k/cumm (1.2-3.4) L 08/07/19 06:34 Absolute Monocytes 0.51 k/cumm (0.11-0.7) 08/07/19 06:34 Absolute Eosinophils 0.08 k/cumm (0.0-0.7) 08/07/19 06:34 Absolute Basophils 0.01 k/cumm (0.0-0.2) 08/07/19 06:34 Nucleated RBCs Cancelled 08/03/19 06:20 Differential Comment Rbc morph reviewed 08/06/19 07:15 Other Cell Type Cancelled 08/03/19 06:20 RBC Morphology See below 08/06/19 07:15 Polychromasia Cancelled 08/03/19 06:20 Hypochromasia 3+ 08/06/19 07:15 Poikilocytosis Cancelled 08/03/19 06:20 Basophilic Stippling Present 08/06/19 07:15 Anisocytosis 2+ 08/06/19 07:15 Microcytosis 3+ 08/06/19 07:15 Macrocytosis Cancelled 08/03/19 06:20 Spherocytes Cancelled 08/03/19 06:20 Target Cells Cancelled 08/03/19 06:20 Tear Drop Cells Cancelled 06/09/20 06:20 Ovalocytes 2+ 08/06/19 07:15 Stomatocytes Cancelled 08/03/19 06:20 Glover-Brinson Bodies Cancelled 08/03/19 06:20 [place] Cells Cancelled 08/03/19 06:20 Acanthocytes (Spur) Cancelled 08/03/19 06:20 Schistocytes Cancelled 08/03/19 06:20 ESR 55 mm/hr (1-20) H 07/24/19 18:10 PT 10.9 sec (9.3-11.0) 08/02/19 07:20 INR 1.1 (0.9-1.1) 08/02/19 07:20 APTT 26.4 sec (21.0-31.4) 07/24/19 18:10 ABG Sample Site Left radial 07/30/19 08:30 ABG pH 7.32 (7.35-7.45) L 07/30/19 08:30 ABG pCO2 53 mmHg (34-47) H 07/30/19 08:30 ABG pO2 117 mmHg (83-108) H 07/30/19 08:30 ABG HCO3 27 mmol/L (22-28) 07/30/19 08:30 ABG Total CO2 26 mmol/L (22-29) 07/30/19 08:30 ABG O2 Saturation 99 % (94-98) H 07/30/19 08:30 ABG Base Excess 0.7 mmol/L (-3-3) 07/30/19 08:30 Oxygen Liter Flow 2 L 07/30/19 08:30 Sodium 138 mmol/L (136-145) 08/08/19 08:30 Potassium 3.7 mmol/L (3.5-5.1) 08/08/19 08:30 Chloride 108 mmol/L (98-107) H 08/08/19 08:30 Carbon Dioxide 24.1 mmol/L (21.0-32.0) 08/08/19 08:30 Anion Gap 5.9 mmol/L (3-11) 08/08/19 08:30 BUN 35 mg/dL (7-18) H 08/08/19 08:30 Creatinine 1.46 mg/dL (0.70-1.30) H 08/08/19 08:30 Estimated GFR/1.73 m2 49.25 (mL/min/1.73m2) 08/08/19 08:30 Glucose 144 mg/dL (74-106) H D 08/08/19 08:30 Lactate 0.7 mmol/L (0.6-1.4) 07/30/19 15:40 Calcium 7.4 mg/dL (8.5-10.1) L 08/08/19 08:30 Phosphorus 2.6 mg/dL (2.6-4.7) 08/08/19 08:30 Magnesium 1.8 mg/dL (1.8-2.4) 08/08/19 08:30 Iron 42 ug/dL (65-175) L 07/29/19 06:45 TIBC 157 ug/dL (250-450) L 07/29/19 06:45 Transferrin % Sat 27 % (20-55) 07/29/19 06:45 Ferritin 660 ng/mL (26-388) H 07/29/19 06:45 Total Bilirubin 0.6 mg/dL (0.2-1.0) 08/02/19 06:05 AST 17 U/L (15-37) 08/02/19 06:05 ALT 18 U/L (16-63) 08/02/19 06:05 Alkaline Phosphatase 88 U/L (46-116) 08/02/19 06:05 Troponin I < 0.05 ng/mL (<0.06) 08/01/19 12:25 C-Reactive Protein < 0.05 mg/dL (0.0-0.3) 08/05/19 06:30 Total Protein 5.4 g/dL (6.4-8.2) L 08/02/19 06:05 Albumin 2.3 g/dL (3.4-5.0) L 08/02/19 06:05 Prealbumin 25 mg/dL (20-40) 08/02/19 06:05 Lipase 25 U/L (73-393) 08/05/19 06:30 Tumor Marker AFP <2.5 ng/mL (<8.1) 07/27/19 06:35 Carcinoembryonic Ag 1.5 ng/ml (See Note) 07/26/19 06:45 Procalcitonin 0.1 ng/mL 08/05/19 06:30 TSH 0.28 uIU/mL (0.36-3.74) L 07/24/19 18:10 Free T4 1.20 ng/dL (0.76-1.46) 07/24/19 18:10 Urine Color Yellow (Yellow) 08/02/19 14:10 Urine Clarity Clear (Clear) 08/02/19 14:10 Urine pH 6.5 (5-8) 08/02/19 14:10 Ur Specific [place] 1.015 (1.005-1.025) 08/02/19 14:10 Urine Protein 100 mg/dL (Negative) H 08/02/19 14:10 Urine Ketones Negative mg/dL (Negative) 08/02/19 14:10 Urine Blood Trace-intact (Negative) H 08/02/19 14:10 Urine Nitrite Negative (Negative) 08/02/19 14:10 Urine Bilirubin Negative (Negative) 08/02/19 14:10 Urine Urobilinogen 0.2 EU/dL (Up TO 0.2) 08/02/19 14:10 Ur Leukocyte Esterase Negative (Negative) 08/02/19 14:10 Urine RBC 0-2 HPF (0-2) 08/02/19 14:10 Urine WBC 5-10 HPF (0-5) 08/02/19 14:10 Ur Epithelial Cells Few HPF (Negative) 08/02/19 14:10 Urine Crystals Negative HPF (Negative) 08/02/19 14:10 Urine Bacteria Few HPF (Negative) 08/02/19 14:10 Urine Casts 0-2 hyaline LPF (Negative) 08/02/19 14:10 Urine Mucus Negative (Negative) 08/02/19 14:10 Urine Other Few transitional (Negative) 08/02/19 14:10 Ur Culture Indicated? Yes 08/02/19 14:10 Urine Glucose 250 mg/dL (Negative) H 08/02/19 14:10 Vancomycin Trough 17.4 ug/mL (10.0-20.0) 08/05/19 11:15 c-ANCA Negative (Negative) 07/27/19 06:35 p-ANCA Negative (Negative) 07/27/19 06:35 COVID-19 PCR Negative (Negative) 07/24/19 21:45 Nasopharyn COVID-19 PCR Not Applicable 07/24/19 21:45 Ref Test Perform Site Critical access hospital lab 07/24/19 21:45 Patient ABO/Rh AB Negative 07/25/19 10:55 Antibody Screen Negative 07/25/19 10:55
[2019-08-08 16:20] VITALS: BP 160/76; PULSE 86; RESP 20; TEMP 36.4; O2SAT 97
--- NOTE | 2019-08-08 17:37 | NUR.NOTE ---
Nursing Note: patient was noted to have some bleeding from the 2nd toe on his left foot, Dr. Cobb was made aware, bleeding was controlled
[2019-08-08 20:03] VITALS: BP 172/68; PULSE 70; RESP 20; TEMP 36.1; O2SAT 98
[2019-08-08] MEDS: risperiDONE 0.5 MG TAB 1.5 MG PO (23:04)
[2019-08-08] MEDS: Levothyroxine 25 MCG TAB 12.5 MCG PO (23:04)
[2019-08-08] MEDS: Melatonin 3 MG TAB PO (23:05)
[2019-08-08] MEDS: Insulin Glargine 300 UNITS/3 ML PEN 15 UNITS SC (23:05)
[2019-08-09] VITALS (8 sets, daily range): BP systolic 101–179; BP diastolic 61–75; PULSE 61–100; RESP 17–89; TEMP 36.1–37.4; O2SAT 95–100
[2019-08-09] MEDS: VANCOMYCIN 1,000 MG in Normal Saline 250 ML 167 MG IV (04:26)
[2019-08-09] MEDS: Calcium 600mg/Vit D 200U TAB 1 TAB PO ×2 (06:44→17:41)
[2019-08-09] MEDS: ACETAMINOPHEN 1,000 MG/100 ML BTL 400 MG IVPB ×3 (06:44→22:47)
[2019-08-09 07:01] LABS: HCT 28.5 % (40.0-50.0); HGB 8.5 g/dL (13.5-17.5); Mean Corp. HGB Concentration 29.8 g/dL (32.0-36.0); Mean Corpuscular Hemoglobin 23.4 pg (27.0-33.0); Mean Corpuscular Volume 78.5 fL (80-95); Mean Platelet Volume 10.7 fL (8.0-11.0); Platelet Count 227 x1000/uL (130-400); RBC 3.63 m/cumm (4.50-6.00); RBC Distribution Width 20.7 % (11.8-14.1); White Blood Cell Count 9.63 k/cumm (4.4-10.8)
[2019-08-09 07:12] LABS: PHOSPHORUS 3.2 mg/dL (2.6-4.7)
[2019-08-09 07:15] LABS: ALT 21 U/L (16-63); AST 16 U/L (15-37); Albumin 2.5 g/dL (3.4-5.0); Alkaline Phosphatase 104 U/L (46-116); Anion Gap 7.1 mmol/L (3-11); BUN 41 mg/dL (7-18); Bilirubin, Total 0.5 mg/dL (0.2-1.0); CO2 23.9 mmol/L (21.0-32.0); CREATININE 1.59 mg/dL (0.70-1.30); Calcium 8.2 mg/dL (8.5-10.1); Chloride 102 mmol/L (98-107); Estimated GFR 44.63 (mL/min/1.73m2); Glucose 203 mg/dL (74-106); Magnesium 1.9 mg/dL (1.8-2.4); Potassium 4.8 mmol/L (3.5-5.1); Sodium 133 mmol/L (136-145); Total Protein 5.3 g/dL (6.4-8.2)
[2019-08-09] MEDS: Terazosin 2 MG CAP 4 MG PO ×2 (07:40→19:31)
[2019-08-09] MEDS: Gabapentin 300 MG CAP PO ×3 (07:41→19:32)
[2019-08-09] MEDS: Venlafaxine 37.5 MG CAPCR 112.5 MG PO (07:41)
[2019-08-09] MEDS: Ascorbic Acid 500 MG TAB 250 MG PO ×2 (07:41→19:32)
[2019-08-09] MEDS: Lactobacillus Acidophilus CAP 1 CAP PO ×3 (07:42→19:32)
[2019-08-09] MEDS: Ferrous Sulfate 325 MG TAB PO ×2 (07:42→19:32)
[2019-08-09] MEDS: hydrALAZINE 25 MG TAB 50 MG PO ×4 (07:42→19:32)
[2019-08-09] MEDS: amLODIPine 5 MG TAB 10 MG PO (07:42)
[2019-08-09] MEDS: Protein Nutritional Supplement 16 GM 1 OUNCE PACKET PO ×3 (07:43→19:30)
[2019-08-09] MEDS: Pantoprazole 40 MG TABCR PO (07:43)
[2019-08-09] MEDS: Insulin Aspart 300 UNITS/3 ML PEN SC ×4 (08:26→22:56)
[2019-08-09] MEDS: Enoxaparin 120 MG/0.8 ML SYR 110 MG SC (10:08)
--- NOTE | 2019-08-09 10:10 | PT.INIE ---
Date of service: 08/09/19 Time of Service: 10:10 PT Notes Visit Reasons: UTI,SACRAL ULCER W/ ABCESS,UNCONTROLLED DIABETES Physical Therapy Inpatient Initial Evaluation Date: 08/09/2019 Referring Doctor: Pablo Cobb MD PT Orders: PT CONSULT: 59-year-old M, bedbound with decubitus ulcer, work to increase mobility Precautions: Contact. Fall. Activity as tolerated. Patient Profile/Admitting Diagnosis: 59-year-old male with extensive medical history as listed below now with diagnosis MRSA bacteremia and stage IV sacral decubitus status post debridement on 07/25/2019 and 07/26/2019 with referral to physical therapy to address mobility impairments, weakness, and impaired activity tolerance. PMHX: Medical History Acromegaly (Chronic) Acute on chronic kidney failure (Resolved) Adrenal insufficiency (Chronic) Ambulatory dysfunction (Chronic) Anemia (Chronic) Atrial flutter, paroxysmal (Chronic) Back pain (Chronic 06/21/13) CAD (coronary artery disease) (Chronic) Cardiopulmonary arrest with successful resuscitation (Resolved) Cholelithiasis (Chronic) Chronic anxiety (Chronic) Chronic bipolar disorder (Chronic) a. With history of psychosis. Chronic cholecystitis (Chronic) Chronic insomnia (Chronic) Chronic pain (Chronic) On both Methadone and Fentanyl as well as Ultram and Naproxen. CKD (chronic kidney disease) (Chronic) Complicated UTI (urinary tract infection) (Resolved) Diabetes mellitus (Chronic) Diabetic foot ulcer (Chronic) Diabetic ulcer of toe associated with diabetes mellitus due to underlying condition, with bone involvement without evidence of necrosis (Inactive) 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 (Resolved) Dyslipidemia (Chronic) Elevated troponin I level (Resolved) Endocarditis due to Staphylococcus (Resolved) Heme positive stool (Resolved) Hemorrhagic cystitis (Chronic) Hyperkalemia (Resolved) Hypertension (Chronic) Hypomagnesemia (Chronic) Hypothyroidism (Chronic) Impaired mobility and ADLs (Chronic) Inability to get out of bed (Chronic 06/21/13) Lactic acidosis (Resolved) MRSA bacteremia (Resolved) MRSA colonization (Chronic) Obesity (Chronic) a. Obesity though he has had significant weight loss since last seen. Osteoarthritis of both knees (Chronic) Severe. a. [id number] bilateral knees. 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 2 diabetes mellitus (Resolved) Palliative care encounter (Chronic) Dr. Horowitz Pedal edema (Chronic) Poor self care (Chronic 06/21/13) Poorly controlled type 2 diabetes mellitus with circulatory disorder (Chronic) Presence of IVC filter (Acute) Pulmonary hypertension (Chronic) Rheumatoid arthritis (Chronic) Sepsis (Resolved) Septic arthritis of elbow, right (Inactive) Toxic metabolic encephalopathy (Resolved) Toxic metabolic encephalopathy (Resolved) Ulcerative colitis (Chronic) UTI (urinary tract infection) (Resolved) UTI (urinary tract infection) due to Enterococcus (Resolved) Surgical History Arthroplasty of knee (Resolved 03/18/12) irrigation and lavage right Fracture, Open Treatment (Resolved) 06/06/17-[facility] [place] S/P ORIF RIGHT DISTAL HUMERUS FRACTURE History of insertion of T-tube into biliary tract (Chronic) S/P colectomy (Chronic) Social History/Home Situation: Long-term resident of the [facility]. Patient has had multiple acute care admissions in the past several years. Patient reports that he has not ambulated at the SNF prior to this admission. Equipment Owned/DME: LTC resident Subjective: Patient is agreeable to PT consult. Reports severe weakness and is highly doubtful about being able to walk today. Objective: General Observation: Resting in bed at initiation of session. Nurse Ana Maria and ROSY Medrano present during session. Pleasant. IV to RUE. Wound VAC to sacral ulcer seen. IV in the right UE. Mental Status: A and O x 3 Pain: Complained of pain in both knees with the right knee more affected than the left ROM: Right Upper Extremity: Shoulder flexion allows 45 degrees. Elbow motion allows WFL. Weak but functional. He has partial opening and partial closing of the hand. Left Upper Extremity: Shoulder flexion allows 50 degrees. Elbow motion WFL. Weak but functional. He has partial opening and partial closing of the hand. Right Lower Extremity: Hip flexors allows less than 90 degrees. Right knee -20 degrees extension. Knee flexion 22 90 degrees. Ankle dorsiflexion allows 0 degrees. Left Lower Extremity: Hip flexors less than 90 degrees. Left knee -10 degrees extension. Knee flexion -10 to 90 degrees. Ankle dorsiflexion to 0 degrees. Strength: Right Upper Extremity: Shoulder flexors 3-/5. Shoulder abductors 3-/5. Elbow flexors 3-/5. Elbow extensors 3-/5. Left Upper Extremity: Shoulder flexors 3-/5. Shoulder abductors 3-/5. Elbow flexors 3-/5. Elbow extensors 3-/5. Right Lower Extremity: Hip flexors 3-/5. Hip abductors 3-/5. Knee flexors 3-/5. Knee extensors 2-/5. Ankle dorsiflexors 1/5. Ankle plantarflexors 1/5. Left Lower Extremity:Hip flexors 3-/5. Hip abductors 3-/5. Knee flexors 3-/5. Knee extensors 2-/5. Ankle dorsiflexors 1/5. Ankle plantarflexors 1/5. Bed Mobility/Transfers: Rolling to minimal assist of 2 Supine to sit minimal assist of 2 Sit to supine minimal assist of 2 Sit to stand minimal assist of 2 Stand to sit minimal assist of 2 Bed to chair NT Chair to bed NT Gait: Refused mobility assessment due to fatigue, pain in B knees, and weakness. Balance: Static Sitting: Good Dynamic Sitting: Good Static Standing: NT Dynamic Standing: NT Special Tests: Mobility Limitations Standardized Measure [facility] AM-PAC 6 clicks Basic Mobility Inpatient Short Form: Raw Score: 12 CMS Score: 69% deficit Informed Consent/Education: Patient instructed in purpose of PT consult and plan of care. Assessment: Brendan presents with functional decline with bed mobility tasks and requires assistance of 2 people for sit to stand activity. He is currently limited with generalized body weakness, pain in bilateral knees with the right more affected than the left, and fatigue resulting for from admitting diagnoses. Transfer and ambulation assessment deferred today due to patient refusal and on and gradually increasing activity level in the coming days. Patient presents with clinical signs and symptoms consistent with current/admitting diagnoses that have resulted to mobility limitations, gait instability, generalized weakness, and impairment of motor control as demonstrated by the following impairment level findings: 1. Decreased strength to B LE major muscle groups 2. Impaired sitting/standing balance 3. Impaired activity tolerance 4. Limitation of joint range of motion in BUE/LE Impairments are contributing to the following functional limitations: 1. Dependent bed mobility skills 2. Increased dependence with transfers 3. Inability to safely ambulate without assistive device and physical assistance 4. Increase completion time for mobility ADL performance 5. Increased fall risk 6. Inability to negotiate steps alone safely Patient is assessed as a 64403 high complexity based on the following: History: 59-year-old male with impairment level findings, functional limitations, and past medical history as listed above Examination:Demonstrable impairment in skin integrity, range of motion, strength, balance, and mobility level with underlying impairments and functional limitations as documented above Presentation:Evolving Decision Makin high complexity Goals: Goals X1 week 1. Supine-Sit CGA 2. Sit-Supine CGA 3. Sit-Stand contact-guard assist 4. Stand-Sit contact-guard assist 5. Bed-Chair contact-guard assist 6. Chair-Bed contact-guard assist 7. Minimal assist gait on level surface with use of least restrictive device for at least 15 feet without report of pain nor dyspnea 8. Fair static and dynamic standing balance/tolerance Plan of Care/Treatment Plan: 1x/day, 7 days/week x 1 week. Plan of care has been reviewed with the INSPECTION MANAGER providing the service under Physical Therapy direction. Initiate Physical Therapy intervention for strengthening, bed mobility, transfers, gait, stairs, balance training, use of assistive device. PT intervention: Session today consisted of initial physical therapy evaluation as well as education and training on bed mobility and sit to stand activities using a front wheeled walker. DISCHARGE RECOMMENDATIONS: Return to SNF when medically cleared to do so with continued skilling for physical therapy to facilitate achievement of highest functional mobility level. TREATMENT CODE/TIME: 14124 x 29 minutes beginning at 10:10 AM. Thank you very much for this referral. Nona Pena PT, DPT, CLT [facility] at [place], [place]
[2019-08-09] MEDS: Normal Saline Flush 10 ML SYR IVP ×4 (10:12→22:47)
[2019-08-09] MEDS: Hydrocortisone SOD SUC. 100 MG VIAL 50 MG IVP ×2 (10:12→22:45)
--- NOTE | 2019-08-09 11:44 | PDOC.CMPRO ---
Care Management Progress Note S/O: Brendan was reviewed at interdisciplinary rounds, he continues to be closely monitored and treated at this time. . CM continues to follow. A: Brendan is a 59 year old man admitted from the [facility] on 07/24/19 with UTI and a sacral ulcer P: Brendan will need care home IV antibiotic therapy to treat the infected decubitus ulcer he presented with. Since the [facility] is unable to provide this service, he will likely need to transition to SWB-1 status at some point. Ultimately, Brendan will return to the [facility] when treatment is complete. CM will continue to support Brendan and his discharge planning concerns and will update his sister as needed.
--- NOTE | 2019-08-09 14:32 | CHAPLAIN ---
Brendan has moved out the Med/Surg floor. Today his nurse was one he knows from the ICU. Brendan has agreed to work with PT. I brought Brendan some herbal tea he was looking for. He said he'd had a good weekend. He believes he has turned the corner physically and will survive this admission. Last week Dr. Horowitz had told him that by Friday (08/05) they would have a good sense of how how his body was dealing with the SBO and infection. It's likely Brendan will be here for several weeks.
--- NOTE | 2019-08-09 18:08 | PGE_ITS ---
Date of Service Date of service: 08/09/19 Time of Service: 16:08 Assessment and Plan Assessment and plan (1) SBO (small bowel obstruction): Status: Acute Assessment and plan: Concern for recurrence of SBO on August 05, but clearly improving. Diet progressed to solid food by surgery and does seem to be tolerated today. Per surgery, the patient is not a surgical candidate, should he worsen. (2) Ventricular escape rhythm: Status: Chronic Assessment and plan: Evaluated by cardiology - felt to be benign and a reflection of electrolyte abnormalities/JESSICA. Tele d/c'ed. Patient is s/p negative MPI in 12/2018 ([facility] [place] No further ischemic workup is indicated at this time, no change today (3) Hypokalemia: Status: Resolved Assessment and plan: Now in the high end of normal. Stop potassium and fluids. (4) MRSA bacteremia: Status: Acute Assessment and plan: On blood cultures 07/24/2019, cleared on blood cultures on 07/27/2019. Likely source is the decubitous wound (present on admission). Pathology not clearly showing Crohn's. Continue vancomycin x 4 weeks since negative blood cultures. Expected end date is 08/23/2019. no evidence of endocarditis on echo. (5) Decubitus ulcer, stage 4 with infection: Status: Acute Assessment and plan: s/p surgical debridement on and 07/26/2019. Surgical wound cx with MRSA. As above - no clear evidence of fistula formation/Crohn's activity on pathology. Continue wound vac. Continue vancomycin. Continue MVI, vitamin C, zinc supplementation per nutrition. Offload/mobilize as able, PT ordered today to help patient contribute more to his offloading and overall care, a PT consult is still pending. (6) ESBL (extended spectrum beta-lactamase) producing bacteria infection: Status: Resolved Assessment and plan: UTI Due to ESBL E. Coli, present on admission, now s/p ruiz. Doing well off meropenem. (7) Adrenal insufficiency: Status: Chronic Assessment and plan: Tapered hydrocortisone to 50 mg twice daily August 06, changed over to prednisone tomorrow morning (8) CAD (coronary artery disease): Status: Chronic Assessment and plan: Neg MPI in 12/2018. No further plans for ischemic workup at this time. Tele d/c'ed. (9) Atrial flutter, paroxysmal: Status: Chronic Assessment and plan: Exam consistent with normal sinus currently. On anticoagulation chronically but being held currently. Will resume [id number] nd discontinue Lovenox Tele d/c'ed. (10) Diabetes mellitus: Status: Chronic Assessment and plan: Continue to adjust basal bolus insulin as steroids are getting tapered. Sugars have been high over the last 24 hours so will increase glargine by 2 units today to 17 units. Qualifiers: Diabetes mellitus type: type 2 Diabetes mellitus long-term insulin use: with termite helper use Diabetes mellitus complication status: with neurologic complications Diabetes mellitus complication detail: with polyneuropathy Qualified Code(s): E11.42 - Type 2 diabetes mellitus with diabetic polyneuropathy; Z79.4 - [facility] (current) use of insulin (11) History of DVT (deep vein thrombosis): Status: Acute Assessment and plan: S/p IVC filter. Go back to apixaban tomorrow, stop Lovenox. (12) Bradycardia: Status: Resolved Assessment and plan: Resolved off beta blockers. Continue to monitor. (13) CHF (congestive heart failure): Status: Chronic Assessment and plan: Currently near euvolemic. Continue furosemide. (14) Hypoventilation associated with obesity syndrome: Status: Chronic Assessment and plan: Tolerating trilogy - his lab values immediately show benefit. Continue to encourage trilogy when asleep. Emphasized with nursing team importance of trilogy use overnight to avoid hypercapnia. (15) Hypertension: Status: Chronic Assessment and plan: Better with current therapy. (amlodipine, terazosin, hydralazine). Continue to monitor. Will avoid metoprolol due to bradycardia. Qualifiers: Hypertension type: essential hypertension Qualified Code(s): I10 - Essential (primary) hypertension (16) Ulcer of left lower leg: Status: Chronic Assessment and plan: Continue wound care with Mepilex. No ulcer bleeding with trauma, but looks healthy. Qualifiers: Non-pressure ulcer stage: limited to breakdown of skin Qualified Code(s): L97.921 - Non-pressure chronic ulcer of unspecified part of left lower leg limited to breakdown of skin (17) DVT prophylaxis: Status: Acute Assessment and plan: S/p IVC filter. Resuming enoxaparin tomorrow. (18) Discharge planning issues: Status: Acute Assessment and plan: Full code. Continues to require hospitalization. Transferred out to [facility] on 08/04/2019, but on floor. May be able to be transitioned to swing status if he continues tolerate a regular diet and transition off IV steroids. Subjective Subjective Patient reports: no new complaints; denies nausea, vomiting, shortness of breath and fever Interval history since last seen: 24 hours: Diet progressed this morning to soft chopped foods 1 feels good today. He still hungry and feels like he could eat more real food. He has not been feeling dizzy or feverish. He is wearing his trilogy at night. He has not had as much pain. Vac dressing changed today. Exam Narrative Exam Narrative: General: Pleasant male, awake, A&O, sitting up on his own on the side of the bed, looks to be at his baseline HEENT: EOMI, MMM, clear, no icterus. Heart: RRR, no m/r/g Lungs: CTAB bilaterally, normal effort Abdomen: soft, + bowel sounds, nontender. Ostomy with green/brown output Skin: Sacral wound with VAC dressing placed with some surrounding erythema. Extremities: 1+ BLE edema, R>L; B chronic venous stasis changes; LLE tibial surface dressed - c/d/, L foot wound dressed, some crusty blood on bandage over toe (hit wound yesterday on bed). Objective Objective Clinical Data: Abnormal lab results 08/09/19 08/09/19 Range/Units 06:20 06:30 RBC 3.63 L (4.50-6.00) m/cumm Hgb 8.5 L (13.5-17.5) g/dL Hct 28.5 L (40.0-50.0) % MCV 78.5 L (80-95) fL MCH 23.4 L (27.0-33.0) pg MCHC 29.8 L (32.0-36.0) g/dL RDW 20.7 H (11.8-14.1) % Sodium 133 L (136-145) mmol/L BUN 41 H (7-18) mg/dL Creatinine 1.59 H (0.70-1.30) mg/dL Glucose 203 H (74-106) mg/dL Calcium 8.2 L (8.5-10.1) mg/dL Total Protein 5.3 L (6.4-8.2) g/dL Albumin 2.5 L (3.4-5.0) g/dL Vital Signs Temperature 36.8 C 08/09/19 15:53 Temperature Source Tympanic 08/09/19 15:53 Pulse 80 08/09/19 15:53 Pulse Rhythm Regular 08/09/19 07:17 Pulse 86 08/04/19 20:04 Respiratory Rate 19 08/09/19 15:53 Respiratory Effort Non-Labored 08/09/19 07:17 Respiratory Depth Normal 08/09/19 07:17 Respiratory Pattern Normal 08/09/19 07:17 Blood Pressure 145/75 H 08/09/19 15:53 Blood Pressure Mean 109 08/04/19 20:04 Blood Pressure Position Supine 08/04/19 15:06 Pulse Oximetry 97 08/09/19 15:53 Oxygen Delivery Method Room Air 08/09/19 15:53 Oxygen Flow Rate 0 08/09/19 15:53 Pain Level 2 08/09/19 11:29 Comment 08/08/19 03:45 Intake & Output 08/08/19 08/09/19 08/09/19 23:59 11:59 23:59 Intake Total 1730 / 2410 880 / 880 Output Total 2350 / 3550 1875 / 3675 1800 / 3675 Balance -620 / -1140 -995 / -2795 -1800 / -2795 Intake: IV 200 / 680 100 / 100 Oral 1530 / 1730 780 / 780 Output: Output, Wound Vac (mls) 125 / 125 Urine 2150 / 3350 1350 / 2300 950 / 2300 Stool 200 / 200 400 / 1250 850 / 1250 Other: Urine Color Yellow Yellow Yellow Urine Appearance Clear Clear Clear Voiding Methods Urinal Laboratory Results WBC 9.63 k/cumm (4.4-10.8) 08/09/19 06:20 RBC 3.63 m/cumm (4.50-6.00) L 08/09/19 06:20 Hgb 8.5 g/dL (13.5-17.5) L 08/09/19 06:20 Hct 28.5 % (40.0-50.0) L 08/09/19 06:20 MCV 78.5 fL (80-95) L 08/09/19 06:20 MCH 23.4 pg (27.0-33.0) L 08/09/19 06:20 MCHC 29.8 g/dL (32.0-36.0) L 08/09/19 06:20 RDW 20.7 % (11.8-14.1) H 08/09/19 06:20 Plt Count 227 x1000/uL (130-400) 08/09/19 06:20 MPV 10.7 fL (8.0-11.0) 08/09/19 06:20 Immature Gran % 1.8 % 08/07/19 06:34 Neutrophils % 77.2 08/07/19 06:34 Band Neutrophils % Cancelled 08/03/19 06:20 Lymphocytes % 13.3 08/07/19 06:34 Atypical Lymphs % Cancelled 08/03/19 06:20 Monocytes % 6.6 08/07/19 06:34 Eosinophils % 1.0 08/07/19 06:34 Basophils % 0.1 08/07/19 06:34 Metamyelocytes % Cancelled 08/03/19 06:20 Myelocytes % Cancelled 08/03/19 06:20 Promyelocytes % Cancelled 08/03/19 06:20 Absolute Neutrophils 6.00 k/cumm (1.2-6.7) 08/07/19 06:34 Absolute Lymphocytes 1.03 k/cumm (1.2-3.4) L 08/07/19 06:34 Absolute Monocytes 0.51 k/cumm (0.11-0.7) 08/07/19 06:34 Absolute Eosinophils 0.08 k/cumm (0.0-0.7) 08/07/19 06:34 Absolute Basophils 0.01 k/cumm (0.0-0.2) 08/07/19 06:34 Nucleated RBCs Cancelled 08/03/19 06:20 Differential Comment Rbc morph reviewed 08/06/19 07:15 Other Cell Type Cancelled 08/03/19 06:20 RBC Morphology See below 08/06/19 07:15 Polychromasia Cancelled 08/03/19 06:20 Hypochromasia 3+ 08/06/19 07:15 Poikilocytosis Cancelled 08/03/19 06:20 Basophilic Stippling Present 08/06/19 07:15 Anisocytosis 2+ 08/06/19 07:15 Microcytosis 3+ 08/06/19 07:15 Macrocytosis Cancelled 08/03/19 06:20 Spherocytes Cancelled 08/03/19 06:20 Target Cells Cancelled 08/03/19 06:20 Tear Drop Cells Cancelled 08/03/19 06:20 Ovalocytes 2+ 08/06/19 07:15 Stomatocytes Cancelled 08/03/19 06:20 [place] Bodies Cancelled 08/03/19 06:20 Sathya Cells Cancelled 08/03/19 06:20 Acanthocytes (Spur) Cancelled 08/03/19 06:20 Schistocytes Cancelled 08/03/19 06:20 ESR 55 mm/hr (1-20) H 07/24/19 18:10 PT 10.0 sec (9.3-11.0) 08/09/19 06:30 INR 1.0 (0.9-1.1) 08/09/19 06:30 APTT 26.4 sec (21.0-31.4) 07/24/19 18:10 ABG Sample Site Left radial 07/30/19 08:30 ABG pH 7.32 (7.35-7.45) L 07/30/19 08:30 ABG pCO2 53 mmHg (34-47) H 07/30/19 08:30 ABG pO2 117 mmHg (83-108) H 07/30/19 08:30 ABG HCO3 27 mmol/L (22-28) 07/30/19 08:30 ABG Total CO2 26 mmol/L (22-29) 07/30/19 08:30 ABG O2 Saturation 99 % (94-98) H 07/30/19 08:30 ABG Base Excess 0.7 mmol/L (-3-3) 07/30/19 08:30 Oxygen Liter Flow 2 L 07/30/19 08:30 Sodium 133 mmol/L (136-145) L 08/09/19 06:30 Potassium 4.8 mmol/L (3.5-5.1) D 08/09/19 06:30 Chloride 102 mmol/L (98-107) 08/09/19 06:30 Carbon Dioxide 23.9 mmol/L (21.0-32.0) 08/09/19 06:30 Anion Gap 7.1 mmol/L (3-11) 08/09/19 06:30 BUN 41 mg/dL (7-18) H 08/09/19 06:30 Creatinine 1.59 mg/dL (0.70-1.30) H 08/09/19 06:30 Estimated GFR/1.73 m2 44.63 (mL/min/1.73m2) 08/09/19 06:30 Glucose 203 mg/dL (74-106) H 08/09/19 06:30 Lactate 0.7 mmol/L (0.6-1.4) 07/30/19 15:40 Calcium 8.2 mg/dL (8.5-10.1) L 08/09/19 06:30 Phosphorus 3.2 mg/dL (2.6-4.7) 08/09/19 06:30 Magnesium 1.9 mg/dL (1.8-2.4) 08/09/19 06:30 Iron 42 ug/dL (65-175) L 07/29/19 06:45 TIBC 157 ug/dL (250-450) L 07/29/19 06:45 Transferrin % Sat 27 % (20-55) 07/29/19 06:45 Ferritin 660 ng/mL (26-388) H 07/29/19 06:45 Total Bilirubin 0.5 mg/dL (0.2-1.0) 08/09/19 06:30 AST 16 U/L (15-37) 08/09/19 06:30 ALT 21 U/L (16-63) 08/09/19 06:30 Alkaline Phosphatase 104 U/L (46-116) 08/09/19 06:30 Troponin I < 0.05 ng/mL (<0.06) 08/01/19 12:25 C-Reactive Protein < 0.05 mg/dL (0.0-0.3) 08/05/19 06:30 Total Protein 5.3 g/dL (6.4-8.2) L 08/09/19 06:30 Albumin 2.5 g/dL (3.4-5.0) L 08/09/19 06:30 Prealbumin 25 mg/dL (20-40) 08/02/19 06:05 Lipase 25 U/L (73-393) 08/05/19 06:30 Tumor Marker AFP <2.5 ng/mL (<8.1) 07/27/19 06:35 Carcinoembryonic Ag 1.5 ng/ml (See Note) 07/26/19 06:45 Procalcitonin 0.1 ng/mL 08/05/19 06:30 TSH 0.28 uIU/mL (0.36-3.74) L 07/24/19 18:10 Free T4 1.20 ng/dL (0.76-1.46) 07/24/19 18:10 Urine Color Yellow (Yellow) 08/02/19 14:10 Urine Clarity Clear (Clear) 08/02/19 14:10 Urine pH 6.5 (5-8) 08/02/19 14:10 Ur Specific [place] 1.015 (1.005-1.025) 08/02/19 14:10 Urine Protein 100 mg/dL (Negative) H 08/02/19 14:10 Urine Ketones Negative mg/dL (Negative) 08/02/19 14:10 Urine Blood Trace-intact (Negative) H 08/02/19 14:10 Urine Nitrite Negative (Negative) 08/02/19 14:10 Urine Bilirubin Negative (Negative) 08/02/19 14:10 Urine Urobilinogen 0.2 EU/dL (Up TO 0.2) 08/02/19 14:10 Ur Leukocyte Esterase Negative (Negative) 08/02/19 14:10 Urine RBC 0-2 HPF (0-2) 08/02/19 14:10 Urine WBC 5-10 HPF (0-5) 08/02/19 14:10 Ur Epithelial Cells Few HPF (Negative) 08/02/19 14:10 Urine Crystals Negative HPF (Negative) 08/02/19 14:10 Urine Bacteria Few HPF (Negative) 08/02/19 14:10 Urine Casts 0-2 hyaline LPF (Negative) 08/02/19 14:10 Urine Mucus Negative (Negative) 08/02/19 14:10 Urine Other Few transitional (Negative) 08/02/19 14:10 Ur Culture Indicated? Yes 08/02/19 14:10 Urine Glucose 250 mg/dL (Negative) H 08/02/19 14:10 Vancomycin Trough 17.4 ug/mL (10.0-20.0) 08/05/19 11:15 c-ANCA Negative (Negative) 07/27/19 06:35 p-ANCA Negative (Negative) 07/27/19 06:35 COVID-19 PCR Negative (Negative) 07/24/19 21:45 Nasopharyn COVID-19 PCR Not Applicable 07/24/19 21:45 Ref Test Perform Site [facility] lab 07/24/19 21:45 Patient ABO/Rh AB Negative 07/25/19 10:55 Antibody Screen Negative 07/25/19 10:55
[2019-08-09] MEDS: Apixaban 2.5 MG TAB PO (22:48)
[2019-08-09] MEDS: Levothyroxine 25 MCG TAB 12.5 MCG PO (22:48)
[2019-08-09] MEDS: risperiDONE 0.5 MG TAB 1.5 MG PO (22:48)
[2019-08-09] MEDS: Insulin Glargine 300 UNITS/3 ML PEN 17 UNITS SC (22:57)
[2019-08-09] MEDS: Melatonin 3 MG TAB PO (23:22)
[2019-08-10] MEDS: VANCOMYCIN 1,000 MG in Normal Saline 250 ML 167 MG IV (01:19)
[2019-08-10 02:09] LABS: Vancomycin, Trough 21.8 ug/mL (10.0-20.0)
[2019-08-10 04:00] VITALS: BP 176/70; PULSE 68; RESP 16; TEMP 36.8; O2SAT 97
[2019-08-10] MEDS: Normal Saline Flush 10 ML SYR IVP ×4 (05:07→20:25)
[2019-08-10] MEDS: VANCOMYCIN 1,000 MG in Normal Saline 250 ML 166.667 MG IV (05:15)
[2019-08-10] MEDS: Calcium 600mg/Vit D 200U TAB 1 TAB PO ×2 (06:43→18:00)
[2019-08-10 07:18] LABS: HCT 27.8 % (40.0-50.0); HGB 8.1 g/dL (13.5-17.5); Mean Corp. HGB Concentration 29.1 g/dL (32.0-36.0); Mean Corpuscular Hemoglobin 23.3 pg (27.0-33.0); Mean Corpuscular Volume 79.9 fL (80-95); Mean Platelet Volume 10.5 fL (8.0-11.0); Platelet Count 231 x1000/uL (130-400); RBC 3.48 m/cumm (4.50-6.00); RBC Distribution Width 20.9 % (11.8-14.1)
[2019-08-10 07:23] VITALS: BP 168/85; PULSE 70; RESP 19; TEMP 36.7; O2SAT 98
[2019-08-10 07:37] LABS: Anion Gap 5.7 mmol/L (3-11); BUN 46 mg/dL (7-18); CO2 22.3 mmol/L (21.0-32.0); CREATININE 1.67 mg/dL (0.70-1.30); Calcium 8.7 mg/dL (8.5-10.1); Chloride 105 mmol/L (98-107); Estimated GFR 42.18 (mL/min/1.73m2); Glucose 268 mg/dL (74-106); Magnesium 1.8 mg/dL (1.8-2.4); PHOSPHORUS 2.1 mg/dL (2.6-4.7); Potassium 5.6 mmol/L (3.5-5.1); Sodium 133 mmol/L (136-145)
--- NOTE | 2019-08-10 08:14 | W.PM.PROGNOT ---
Date of Service Date of service: 08/10/19 Time of Service: 07:55 Assessment and Plan Assessment and plan (1) Persistent vomiting in adult patient: Status: Acute Assessment and plan: A\\ Was doing well yesterday. Ostomy working P\\ GAstric emptying study ordered for today. Subjective Subjective Interval history since last seen: Mr. Corley is doing well. No N/V. Was tolerating a regular diet yesterday. He is NPO right now for a Gastric emptying study. His ostomy is working Exam GI Inspection: normal to inspection Palpation: soft, no hepatosplenomegaly and nontender Auscultation: normal bowel sounds Other: ileostomy- has air and stool in it Objective Objective Clinical Data: Abnormal lab results 08/10/19 08/10/19 08/10/19 Range/Units 01:40 06:35 06:35 RBC 3.48 L (4.50-6.00) m/cumm Hgb 8.1 L (13.5-17.5) g/dL Hct 27.8 L (40.0-50.0) % MCV 79.9 L (80-95) fL MCH 23.3 L (27.0-33.0) pg MCHC 29.1 L (32.0-36.0) g/dL RDW 20.9 H (11.8-14.1) % Sodium 133 L (136-145) mmol/L Potassium 5.6 H (3.5-5.1) mmol/L BUN 46 H (7-18) mg/dL Creatinine 1.67 H (0.70-1.30) mg/dL Glucose 268 H (74-106) mg/dL Phosphorus 2.1 L (2.6-4.7) mg/dL Vancomycin Trough 21.8 H* (10.0-20.0) ug/mL Vital Signs Temperature 98.1 F 08/10/19 07:23 Temperature Source Tympanic 08/10/19 07:23 Pulse 70 08/10/19 07:23 Pulse Rhythm Regular 08/09/19 18:12 Pulse 86 08/04/19 20:04 Respiratory Rate 19 08/10/19 07:23 Respiratory Effort Non-Labored 08/10/19 04:38 Respiratory Depth Normal 08/10/19 04:38 Respiratory Pattern Normal 06/16/20 04:38 Blood Pressure 168/85 H 08/10/19 07:23 Blood Pressure Mean 109 08/04/19 20:04 Blood Pressure Position Supine 08/04/19 15:06 Pulse Oximetry 98 08/10/19 07:23 Oxygen Delivery Method Room Air 08/10/19 07:23 Oxygen Flow Rate 0 08/10/19 07:23 Pain Level 2 08/10/19 07:23 Comment 08/09/19 23:24 Intake & Output 08/09/19 08/09/19 08/10/19 11:59 23:59 11:59 Intake Total 1130 / 1710 580 / 1710 Output Total 1875 / 5125 3250 / 5125 1270 / 1270 Balance -745 / -3415 -2670 / -3415 -1270 / -1270 Intake: IV 350 / 450 100 / 450 Oral 780 / 1260 480 / 1260 Output: Output, Wound Vac (mls) 125 / 125 Urine 1350 / 3250 1900 / 3250 970 / 970 Stool 400 / 1750 1350 / 1750 300 / 300 Other: Urine Color Yellow Yellow Yellow Urine Appearance Clear Clear Clear Voiding Methods Urinal Urinal Laboratory Results WBC 9.80 k/cumm (4.4-10.8) 08/10/19 06:35 RBC 3.48 m/cumm (4.50-6.00) L 08/10/19 06:35 Hgb 8.1 g/dL (13.5-17.5) L 08/10/19 06:35 Hct 27.8 % (40.0-50.0) L 08/10/19 06:35 MCV 79.9 fL (80-95) L 08/10/19 06:35 MCH 23.3 pg (27.0-33.0) L 08/10/19 06:35 MCHC 29.1 g/dL (32.0-36.0) L 08/10/19 06:35 RDW 20.9 % (11.8-14.1) H 08/10/19 06:35 Plt Count 231 x1000/uL (130-400) 08/10/19 06:35 MPV 10.5 fL (8.0-11.0) 08/10/19 06:35 Immature Gran % 1.8 % 08/07/19 06:34 Neutrophils % 77.2 08/07/19 06:34 Band Neutrophils % Cancelled 08/03/19 06:20 Lymphocytes % 13.3 08/07/19 06:34 Atypical Lymphs % Cancelled 08/03/19 06:20 Monocytes % 6.6 08/07/19 06:34 Eosinophils % 1.0 08/07/19 06:34 Basophils % 0.1 08/07/19 06:34 Metamyelocytes % Cancelled 08/03/19 06:20 Myelocytes % Cancelled 08/03/19 06:20 Promyelocytes % Cancelled 08/03/19 06:20 Absolute Neutrophils 6.00 k/cumm (1.2-6.7) 08/07/19 06:34 Absolute Lymphocytes 1.03 k/cumm (1.2-3.4) L 08/07/19 06:34 Absolute Monocytes 0.51 k/cumm (0.11-0.7) 08/07/19 06:34 Absolute Eosinophils 0.08 k/cumm (0.0-0.7) 08/07/19 06:34 Absolute Basophils 0.01 k/cumm (0.0-0.2) 08/07/19 06:34 Nucleated RBCs Cancelled 08/03/19 06:20 Differential Comment Rbc morph reviewed 08/06/19 07:15 Other Cell Type Cancelled 08/03/19 06:20 RBC Morphology See below 08/06/19 07:15 Polychromasia Cancelled 08/03/19 06:20 Hypochromasia 3+ 08/06/19 07:15 Poikilocytosis Cancelled 08/03/19 06:20 Basophilic Stippling Present 08/06/19 07:15 Anisocytosis 2+ 08/06/19 07:15 Microcytosis 3+ 08/06/19 07:15 Macrocytosis Cancelled 08/03/19 06:20 Spherocytes Cancelled 08/03/19 06:20 Target Cells Cancelled 08/03/19 06:20 Tear Drop Cells Cancelled 08/03/19 06:20 Ovalocytes 2+ 08/06/19 07:15 Stomatocytes Cancelled 08/03/19 06:20 [place] Bodies Cancelled 08/03/19 06:20 Sathya Cells Cancelled 08/03/19 06:20 Acanthocytes (Spur) Cancelled 08/03/19 06:20 Schistocytes Cancelled 08/03/19 06:20 ESR 55 mm/hr (1-20) H 07/24/19 18:10 PT 10.0 sec (9.3-11.0) 08/09/19 06:30 INR 1.0 (0.9-1.1) 08/09/19 06:30 APTT 26.4 sec (21.0-31.4) 07/24/19 18:10 ABG Sample Site Left radial 07/30/19 08:30 ABG pH 7.32 (7.35-7.45) L 07/30/19 08:30 ABG pCO2 53 mmHg (34-47) H 07/30/19 08:30 ABG pO2 117 mmHg (83-108) H 07/30/19 08:30 ABG HCO3 27 mmol/L (22-28) 07/30/19 08:30 ABG Total CO2 26 mmol/L (22-29) 07/30/19 08:30 ABG O2 Saturation 99 % (94-98) H 07/30/19 08:30 ABG Base Excess 0.7 mmol/L (-3-3) 07/30/19 08:30 Oxygen Liter Flow 2 L 07/30/19 08:30 Sodium 133 mmol/L (136-145) L 08/10/19 06:35 Potassium 5.6 mmol/L (3.5-5.1) H 08/10/19 06:35 Chloride 105 mmol/L (98-107) 08/10/19 06:35 Carbon Dioxide 22.3 mmol/L (21.0-32.0) 08/10/19 06:35 Anion Gap 5.7 mmol/L (3-11) 08/10/19 06:35 BUN 46 mg/dL (7-18) H 08/10/19 06:35 Creatinine 1.67 mg/dL (0.70-1.30) H 08/10/19 06:35 Estimated GFR/1.73 m2 42.18 (mL/min/1.73m2) 08/10/19 06:35 Glucose 268 mg/dL (74-106) H 08/10/19 06:35 Lactate 0.7 mmol/L (0.6-1.4) 07/30/19 15:40 Calcium 8.7 mg/dL (8.5-10.1) 08/10/19 06:35 Phosphorus 2.1 mg/dL (2.6-4.7) L 08/10/19 06:35 Magnesium 1.8 mg/dL (1.8-2.4) 08/10/19 06:35 Iron 42 ug/dL (65-175) L 07/29/19 06:45 TIBC 157 ug/dL (250-450) L 07/29/19 06:45 Transferrin % Sat 27 % (20-55) 07/29/19 06:45 Ferritin 660 ng/mL (26-388) H 07/29/19 06:45 Total Bilirubin 0.5 mg/dL (0.2-1.0) 08/09/19 06:30 AST 16 U/L (15-37) 08/09/19 06:30 ALT 21 U/L (16-63) 08/09/19 06:30 Alkaline Phosphatase 104 U/L (46-116) 08/09/19 06:30 Troponin I < 0.05 ng/mL (<0.06) 08/01/19 12:25 C-Reactive Protein < 0.05 mg/dL (0.0-0.3) 08/05/19 06:30 Total Protein 5.3 g/dL (6.4-8.2) L 08/09/19 06:30 Albumin 2.5 g/dL (3.4-5.0) L 08/09/19 06:30 Prealbumin 25 mg/dL (20-40) 08/02/19 06:05 Lipase 25 U/L (73-393) 08/05/19 06:30 Tumor Marker AFP <2.5 ng/mL (<8.1) 07/27/19 06:35 Carcinoembryonic Ag 1.5 ng/ml (See Note) 07/26/19 06:45 Procalcitonin 0.1 ng/mL 08/05/19 06:30 TSH 0.28 uIU/mL (0.36-3.74) L 07/24/19 18:10 Free T4 1.20 ng/dL (0.76-1.46) 07/24/19 18:10 Urine Color Yellow (Yellow) 08/02/19 14:10 Urine Clarity Clear (Clear) 08/02/19 14:10 Urine pH 6.5 (5-8) 08/02/19 14:10 Ur Specific [place] 1.015 (1.005-1.025) 08/02/19 14:10 Urine Protein 100 mg/dL (Negative) H 08/02/19 14:10 Urine Ketones Negative mg/dL (Negative) 08/02/19 14:10 Urine Blood Trace-intact (Negative) H 08/02/19 14:10 Urine Nitrite Negative (Negative) 08/02/19 14:10 Urine Bilirubin Negative (Negative) 08/02/19 14:10 Urine Urobilinogen 0.2 EU/dL (Up TO 0.2) 08/02/19 14:10 Ur Leukocyte Esterase Negative (Negative) 08/02/19 14:10 Urine RBC 0-2 HPF (0-2) 08/02/19 14:10 Urine WBC 5-10 HPF (0-5) 08/02/19 14:10 Ur Epithelial Cells Few HPF (Negative) 08/02/19 14:10 Urine Crystals Negative HPF (Negative) 08/02/19 14:10 Urine Bacteria Few HPF (Negative) 08/02/19 14:10 Urine Casts 0-2 hyaline LPF (Negative) 08/02/19 14:10 Urine Mucus Negative (Negative) 08/02/19 14:10 Urine Other Few transitional (Negative) 08/02/19 14:10 Ur Culture Indicated? Yes 08/02/19 14:10 Urine Glucose 250 mg/dL (Negative) H 08/02/19 14:10 Vancomycin Trough 21.8 ug/mL (10.0-20.0) H* 08/10/19 01:40 c-ANCA Negative (Negative) 07/27/19 06:35 p-ANCA Negative (Negative) 07/27/19 06:35 COVID-19 PCR Negative (Negative) 07/24/19 21:45 Nasopharyn COVID-19 PCR Not Applicable 07/24/19 21:45 Ref Test Perform Site [facility] lab 07/24/19 21:45 Patient ABO/Rh AB Negative 07/25/19 10:55 Antibody Screen Negative 07/25/19 10:55
--- NOTE | 2019-08-10 08:30 | DI.NM_ITS ---
CLINICAL HISTORY: vomting. s/p APR. hx of crohns. has colostomy. COMPARISON: CR,XR XR ABDOMEN FLAT PLATE from 08/07/2019 EXAMINATION: PO Dose: 1 mCi Sulfur colloid in eggs. Two pieces of bread and 8 ounces of water were also administered. Images: Immediate, 1 hour, 2 hour and 4 hour images.. FINDINGS: The total gastric emptying at 1 hour is calculated to be 59 percent. 2 hours 58 percent. 4 hours 4 6 percent The T1/2 is between 2 and 4 hours. IMPRESSION: 1. Significantly delayed gastric emptying. Nearly 50 percent of the administered activity remained in the stomach after 4 hours. SNM guidelines: 40% or more gastric emptying at 90 minutes is considered normal. Normal T 1/2 < 50 mi nutes. < 30% at 1 hour signifies abnormal rapid gastric emptying.
--- NOTE | 2019-08-10 08:36 | PDOC.CMPRO ---
Care Management Progress Note S/O: Brendan was reviewed at interdisciplinary rounds, he continues to be closely monitored and treated at this time. CM continues to follow. A: Brendan is a 59 year old man admitted from the [facility] on 07/24/19 with UTI and a sacral ulcer P: Brendan will need snf IV antibiotic therapy to treat the infected decubitus ulcer he presented with. Since the [facility] is unable to provide this service, he will likely need to transition to SWB-1 status at some point. Ultimately, Brendan will return to the [facility] when treatment is complete. CM will continue to support Brendan and his discharge planning concerns and will update his sister as needed.
--- NOTE | 2019-08-10 10:44 | RESPIRATORY ---
08/08/2019 0830- Pt found to hard to wake up by RT . Day RNValentino reports night nurse told pt he did not have to use the Trilogy if he did not want to RT went over the importance of Trilogy use. Pt states he understands.
[2019-08-10 12:17] VITALS: BP 175/75; PULSE 70; RESP 17; TEMP 36.4; O2SAT 99
--- NOTE | 2019-08-10 13:20 | NS.NUTBLAN_ITS ---
Date of service: 08/10/19 Time of Service: 13:20 Nutritional Consult ASSESSMENT: see original nutritional consult note from 08/02/19. SBO resolved, Brendan now able to tolerate regular diet with 100% completion. IN addition to meals, Brendan consumes double protein at meals, liquid portien supplement 1 oz TID and meets 100% nutrient needs for optimal wound healing. receives daily diabetic education on carbohydrate counting when selecting meals. 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
--- NOTE | 2019-08-10 13:25 | PT.INTREAT ---
Date of service: 08/10/19 Time of Service: 13:25 PT Notes Visit Reasons: UTI,SACRAL ULCER W/ ABCESS,UNCONTROLLED DIABETES Inpatient Physical Therapy Treatment Note [facility] Date: 08/10/19 PRECAUTIONS: Fall, Activity as Tolerated SUBJECTIVE: Brendan is agreeable to participating in PT, however, states that he is quite weak and that he has lost most of his strength due to his current illness. OBJECTIVE: PAIN: Patient c/o L knee pain BED MOBILITY/TRANSFERS Supine-sit: I Sit-supine: Max A x2 Sit-stand: Unable Stand-sit: Unable GAIT: Unable THEREX: Patient completed ankle pumps, quad sets, and glute sets. Held further ther ex due to L knee pain. ASSESSMENT: Patient was unable to perform gait training at this time due to significant overall weakness. Patient would benefit from global strengthening and gait training, when appropriate. PLAN: Continue with PT's POC TREATMENT CODE/TIME: 20 minutes; [id number]
[2019-08-10] MEDS: ACETAMINOPHEN 1,000 MG/100 ML BTL 400 MG IVPB ×2 (14:49→23:02)
[2019-08-10] MEDS: Protein Nutritional Supplement 16 GM 1 OUNCE PACKET PO ×2 (14:49→20:11)
[2019-08-10] MEDS: hydrALAZINE 25 MG TAB 50 MG PO ×2 (14:49→20:10)
[2019-08-10] MEDS: Lactobacillus Acidophilus CAP 1 CAP PO ×2 (14:49→20:10)
[2019-08-10] MEDS: Gabapentin 300 MG CAP PO ×2 (14:49→20:10)
--- NOTE | 2019-08-10 15:03 | PGE_ITS ---
Date of Service Date of service: 08/10/19 Time of Service: 15:03 Assessment and Plan Assessment and plan (1) SBO (small bowel obstruction): Status: Resolved Assessment and plan: Appears to have resolved and seems to be related to diabetic gastroparesis. Patient will be initiated on erythromycin assuming that her pharmacist can obtain a dose for him. It may be problematic for him to obtain this on an outpatient basis. An alternative drug would be Propulsid.. (2) Decubitus ulcer, stage 4 with infection: Status: Acute Assessment and plan: s/p surgical debridement on and 07/26/2019. Surgical wound cx with MRSA. As above - no clear evidence of fistula formation/Crohn's activity on pathology. Continue wound vac. Continue vancomycin. Continue MVI, vitamin C, zinc supplementation per nutrition. Offload/mobilize as able, PT consulted to help w/ mobilization (3) MRSA bacteremia: Status: Acute Assessment and plan: On blood cultures 07/24/2019, cleared on blood cultures on 07/27/2019. Likely source is the decubitous wound (present on admission). Pathology not clearly showing Crohn's. Continue vancomycin x 4 weeks since negative blood cultures. Expected end date is 08/23/2019. no evidence of endocarditis on echo. (4) Ventricular escape rhythm: Status: Chronic Assessment and plan: Evaluated by cardiology - felt to be benign and a reflection of electrolyte abnormalities/JESSICA. Tele d/c'ed. Patient is s/p negative MPI in 12/2018 ([facility] [place]). No further ischemic workup is indicated at this time, no change today (5) Adrenal insufficiency: Status: Chronic Assessment and plan: Tapered hydrocortisone to 50 mg twice daily August 06, changed over to prednisone 40 mg today. will monitor for signs/symptoms of acute AI such as hypotension or hypoglycemia (6) Atrial flutter, paroxysmal: Status: Chronic Assessment and plan: Exam consistent with normal sinus currently. On anticoagulation chronically but being held currently. Will resume [id number] nd discontinue Lovenox Tele d/c'ed. (7) Diabetes mellitus: Status: Chronic Assessment and plan: glucose remains high in the high 200's to 300 range. 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 Lovenox dc'ed yesterday and Apixaban restarted at 2.5 mg bid. Pharmacist indicated that his renal function recovered enough to increase his dose, however, in light of his rising creatiine over the past couple days will wait and see how his renal function is tomorrow before changing his dose. (9) Bradycardia: Status: Resolved Assessment and plan: Resolved off beta blockers. Continue to monitor. (10) CHF (congestive heart failure): Status: Chronic Assessment and plan: Currently near euvolemic. Continue furosemide. (11) Hypoventilation associated with obesity syndrome: Status: Chronic Assessment and plan: Tolerating trilogy - his lab values immediately show benefit. Continue to encourage trilogy when asleep. Emphasized with nursing team importance of trilogy use overnight to avoid hypercapnia. (12) Hypertension: Status: Chronic Assessment and plan: Better with current therapy. (amlodipine, terazosin, hydralazine). Continue to monitor. Will avoid metoprolol due to bradycardia. Qualifiers: Hypertension type: essential hypertension Qualified Code(s): I10 - Essential (primary) hypertension (13) Ulcer of left lower leg: Status: Chronic Assessment and plan: Continue wound care with Mepilex. will look at wound tomorrow when his dressing is changed Qualifiers: Non-pressure ulcer stage: limited to breakdown of skin Qualified Code(s): L97.921 - Non-pressure chronic ulcer of unspecified part of left lower leg limited to breakdown of skin (14) DVT prophylaxis: Status: Acute Assessment and plan: S/p IVC filter. Apixaban has been restarted and enoxaparin dc'ed (15) Discharge planning issues: Status: Acute Assessment and plan: Full code. Continues to require hospitalization. Transferred out to [facility] on 08/04/2019, but on floor. May be able to be transitioned to swing status if he continues tolerate a regular diet and transition off IV steroids. Will plan for transfer to swing bed status tomorrow. Would have done so today but we were awaiting his gastric emptying study which took most of the day to complete. Subjective Subjective Patient reports: no new complaints and feels better Interval history since last seen: Patient continues to receive vancomycin for MRSA sacral decubitus which presented w/ MRSA bacteremia. He remains on Vancomycin w/ a high trough level today of 21.8. His Vancomycin dose has been adjusted by pharmacy. His creatinine is slowly increasing to 1.67 w/ BUN of 46 and K+ of 5.6. He is not currently on a diuretic nor on any potassium replacements. This probably d/t some mild dehydration d/t recent decr. oral intake from his partial SBO. He is now back to taking PO but was made NPO this a.m. d/t his gastric emptying study. He underwent abdominal xray and nuclear gastric emptying study this morning and early afternoon. Plain film xray of his abdomen demonstrated nonobstructive bowel gas pattern. His nuclear gastric emptying study demonstrates gastroparesis w/ delayed emptying time w/ nearly 50% of his administered contents still in the stomach after 4 hrs. I spoke w/ Dr. Prado who recommended beginning him on erythromycin to improve his motility and switching him to full liquids pending his starting the erythromycin. He is not eligible for Reglan d/t the many interactions w/ many of his psychiatric meds. Exam Narrative Exam Narrative: Morbidly obese male sitting up in his bedside eating a late lunch this afternoon. He was eating a burger and had some coughing spells afterwards. I interrupted his eating to reinstruct him about safety precautions including single bites and double swallows as well as chin tucking. He did not appear to be in any respiratory distress after the coughing spells he seemed cl ear his throat and was able to continue his meal safely. Lungs are clear to auscultation. Heart is regular rate and rhythm. Abdomen is obese soft and nontender. Sacrum has a wound VAC in place which I did not remove to examine the wound. I instructed nursing that at the next change of his dressing to let me know so I can examine his sacral wound. Likewise his left leg has a dressing on this for stasis ulcer I will reexamine this at the next dressing change. Objective Objective Clinical Data: Abnormal lab results 08/10/19 08/10/19 08/10/19 Range/Units 01:40 06:35 06:35 RBC 3.48 L (4.50-6.00) m/cumm Hgb 8.1 L (13.5-17.5) g/dL Hct 27.8 L (40.0-50.0) % MCV 79.9 L (80-95) fL MCH 23.3 L (27.0-33.0) pg MCHC 29.1 L (32.0-36.0) g/dL RDW 20.9 H (11.8-14.1) % Sodium 133 L (136-145) mmol/L Potassium 5.6 H (3.5-5.1) mmol/L BUN 46 H (7-18) mg/dL Creatinine 1.67 H (0.70-1.30) mg/dL Glucose 268 H (74-106) mg/dL Phosphorus 2.1 L (2.6-4.7) mg/dL Vancomycin Trough 21.8 H* (10.0-20.0) ug/mL Vital Signs Temperature 36.4 C L 08/10/19 12:17 Temperature Source Temporal Artery Scan 08/10/19 12:17 Pulse 70 08/10/19 12:17 Pulse Rhythm Regular 08/09/19 18:12 Pulse 86 08/04/19 20:04 Respiratory Rate 17 08/10/19 12:17 Respiratory Effort Non-Labored 08/10/19 04:38 Respiratory Depth Normal 08/10/19 04:38 Respiratory Pattern Normal 08/10/19 04:38 Blood Pressure 175/75 H 08/10/19 12:17 Blood Pressure Mean 109 08/04/19 20:04 Blood Pressure Position Supine 08/04/19 15:06 Pulse Oximetry 99 08/10/19 12:17 Oxygen Delivery Method Room Air 08/10/19 12:17 Oxygen Flow Rate 0 08/10/19 12:17 Pain Level 2 08/10/19 14:49 Comment 08/09/19 23:24 Intake & Output 08/09/19 08/10/19 08/10/19 23:59 11:59 23:59 Intake Total 580 / 1710 350 / 350 Output Total 3250 / 5125 1770 / 5 275 / 2045 Balance -2670 / -3415 -1420 / -1695 -275 / -1695 Intake: IV 100 / 450 350 / 350 Oral 480 / 1260 Output: Urine 1900 / 3250 1220 / 1495 275 / 1495 Stool 1350 / 1750 550 / 550 Other: Urine Color Yellow Yellow Pale Yellow Urine Appearance Clear Clear Clear Urine Odor None Comment Void x1 in the urinal. Voiding Methods Urinal Urinal Urinal Laboratory Results WBC 9.80 k/cumm (4.4-10.8) 08/10/19 06:35 RBC 3.48 m/cumm (4.50-6.00) L 08/10/19 06:35 Hgb 8.1 g/dL (13.5-17.5) L 08/10/19 06:35 Hct 27.8 % (40.0-50.0) L 08/10/19 06:35 MCV 79.9 fL (80-95) L 08/10/19 06:35 MCH 23.3 pg (27.0-33.0) L 08/10/19 06:35 MCHC 29.1 g/dL (32.0-36.0) L 08/10/19 06:35 RDW 20.9 % (11.8-14.1) H 08/10/19 06:35 Plt Count 231 x1000/uL (130-400) 08/10/19 06:35 MPV 10.5 fL (8.0-11.0) 08/10/19 06:35 Immature Gran % 1.8 % 08/07/19 06:34 Neutrophils % 77.2 08/07/19 06:34 Band Neutrophils % Cancelled 08/03/19 06:20 Lymphocytes % 13.3 08/07/19 06:34 Atypical Lymphs % Cancelled 08/03/19 06:20 Monocytes % 6.6 08/07/19 06:34 Eosinophils % 1.0 08/07/19 06:34 Basophils % 0.1 08/07/19 06:34 Metamyelocytes % Cancelled 08/03/19 06:20 Myelocytes % Cancelled 08/03/19 06:20 Promyelocytes % Cancelled 08/03/19 06:20 Absolute Neutrophils 6.00 k/cumm (1.2-6.7) 08/07/19 06:34 Absolute Lymphocytes 1.03 k/cumm (1.2-3.4) L 08/07/19 06:34 Absolute Monocytes 0.51 k/cumm (0.11-0.7) 08/07/19 06:34 Absolute Eosinophils 0.08 k/cumm (0.0-0.7) 08/07/19 06:34 Absolute Basophils 0.01 k/cumm (0.0-0.2) 08/07/19 06:34 Nucleated RBCs Cancelled 08/03/19 06:20 Differential Comment Rbc morph reviewed 08/06/19 07:15 Other Cell Type Cancelled 08/03/19 06:20 RBC Morphology See below 08/06/19 07:15 Polychromasia Cancelled 08/03/19 06:20 Hypochromasia 3+ 08/06/19 07:15 Poikilocytosis Cancelled 08/03/19 06:20 Basophilic Stippling Present 08/06/19 07:15 Anisocytosis 2+ 08/06/19 07:15 Microcytosis 3+ 08/06/19 07:15 Macrocytosis Cancelled 08/03/19 06:20 Spherocytes Cancelled 08/03/19 06:20 Target Cells Cancelled 08/03/19 06:20 Tear Drop Cells Cancelled 08/03/19 06:20 Ovalocytes 2+ 08/06/19 07:15 Stomatocytes Cancelled 08/03/19 06:20 [place] Bodies Cancelled 08/03/19 06:20 [place] Cells Cancelled 08/03/19 06:20 Acanthocytes (Spur) Cancelled 08/03/19 06:20 Schistocytes Cancelled 08/03/19 06:20 ESR 55 mm/hr (1-20) H 07/24/19 18:10 PT 10.0 sec (9.3-11.0) 08/09/19 06:30 INR 1.0 (0.9-1.1) 08/09/19 06:30 APTT 26.4 sec (21.0-31.4) 07/24/19 18:10 ABG Sample Site Left radial 07/30/19 08:30 ABG pH 7.32 (7.35-7.45) L 07/30/19 08:30 ABG pCO2 53 mmHg (34-47) H 07/30/19 08:30 ABG pO2 117 mmHg (83-108) H 07/30/19 08:30 ABG HCO3 27 mmol/L (22-28) 07/30/19 08:30 ABG Total CO2 26 mmol/L (22-29) 07/30/19 08:30 ABG O2 Saturation 99 % (94-98) H 07/30/19 08:30 ABG Base Excess 0.7 mmol/L (-3-3) 07/30/19 08:30 Oxygen Liter Flow 2 L 07/30/19 08:30 Sodium 133 mmol/L (136-145) L 08/10/19 06:35 Potassium 5.6 mmol/L (3.5-5.1) H 08/10/19 06:35 Chloride 105 mmol/L (98-107) 08/10/19 06:35 Carbon Dioxide 22.3 mmol/L (21.0-32.0) 08/10/19 06:35 Anion Gap 5.7 mmol/L (3-11) 08/10/19 06:35 BUN 46 mg/dL (7-18) H 08/10/19 06:35 Creatinine 1.67 mg/dL (0.70-1.30) H 08/10/19 06:35 Estimated GFR/1.73 m2 42.18 (mL/min/1.73m2) 08/10/19 06:35 Glucose 268 mg/dL (74-106) H 08/10/19 06:35 Lactate 0.7 mmol/L (0.6-1.4) 07/30/19 15:40 Calcium 8.7 mg/dL (8.5-10.1) 08/10/19 06:35 Phosphorus 2.1 mg/dL (2.6-4.7) L 08/10/19 06:35 Magnesium 1.8 mg/dL (1.8-2.4) 08/10/19 06:35 Iron 42 ug/dL (65-175) L 07/29/19 06:45 TIBC 157 ug/dL (250-450) L 07/29/19 06:45 Transferrin % Sat 27 % (20-55) 07/29/19 06:45 Ferritin 660 ng/mL (26-388) H 07/29/19 06:45 Total Bilirubin 0.5 mg/dL (0.2-1.0) 08/09/19 06:30 AST 16 U/L (15-37) 08/09/19 06:30 ALT 21 U/L (16-63) 08/09/19 06:30 Alkaline Phosphatase 104 U/L (46-116) 08/09/19 06:30 Troponin I < 0.05 ng/mL (<0.06) 08/01/19 12:25 C-Reactive Protein < 0.05 mg/dL (0.0-0.3) 08/05/19 06:30 Total Protein 5.3 g/dL (6.4-8.2) L 08/09/19 06:30 Albumin 2.5 g/dL (3.4-5.0) L 08/09/19 06:30 Prealbumin 25 mg/dL (20-40) 08/02/19 06:05 Lipase 25 U/L (73-393) 08/05/19 06:30 Tumor Marker AFP <2.5 ng/mL (<8.1) 07/27/19 06:35 Carcinoembryonic Ag 1.5 ng/ml (See Note) 07/26/19 06:45 Procalcitonin 0.1 ng/mL 08/05/19 06:30 TSH 0.28 uIU/mL (0.36-3.74) L 07/24/19 18:10 Free T4 1.20 ng/dL (0.76-1.46) 07/24/19 18:10 Urine Color Yellow (Yellow) 08/02/19 14:10 Urine Clarity Clear (Clear) 08/02/19 14:10 Urine pH 6.5 (5-8) 08/02/19 14:10 Ur Specific [place] 1.015 (1.005-1.025) 08/02/19 14:10 Urine Protein 100 mg/dL (Negative) H 08/02/19 14:10 Urine Ketones Negative mg/dL (Negative) 08/02/19 14:10 Urine Blood Trace-intact (Negative) H 08/02/19 14:10 Urine Nitrite Negative (Negative) 08/02/19 14:10 Urine Bilirubin Negative (Negative) 08/02/19 14:10 Urine Urobilinogen 0.2 EU/dL (Up TO 0.2) 08/02/19 14:10 Ur Leukocyte Esterase Negative (Negative) 08/02/19 14:10 Urine RBC 0-2 HPF (0-2) 08/02/19 14:10 Urine WBC 5-10 HPF (0-5) 08/02/19 14:10 Ur Epithelial Cells Few HPF (Negative) 08/02/19 14:10 Urine Crystals Negative HPF (Negative) 08/02/19 14:10 Urine Bacteria Few HPF (Negative) 08/02/19 14:10 Urine Casts 0-2 hyaline LPF (Negative) 08/02/19 14:10 Urine Mucus Negative (Negative) 08/02/19 14:10 Urine Other Few transitional (Negative) 08/02/19 14:10 Ur Culture Indicated? Yes 08/02/19 14:10 Urine Glucose 250 mg/dL (Negative) H 08/02/19 14:10 Vancomycin Trough 21.8 ug/mL (10.0-20.0) H* 08/10/19 01:40 c-ANCA Negative (Negative) 07/27/19 06:35 p-ANCA Negative (Negative) 07/27/19 06:35 COVID-19 PCR Negative (Negative) 07/24/19 21:45 Nasopharyn COVID-19 PCR Not Applicable 07/24/19 21:45 Ref Test Perform Site [facility] lab 07/24/19 21:45 Patient ABO/Rh AB Negative 07/25/19 10:55 Antibody Screen Negative 07/25/19 10:55
[2019-08-10 15:47] VITALS: BP 141/79; PULSE 96; RESP 18; TEMP 36.5; O2SAT 97
[2019-08-10] MEDS: Insulin Aspart 300 UNITS/3 ML PEN SC ×3 (18:00→23:16)
[2019-08-10 19:29] VITALS: BP 161/81; PULSE 82; RESP 20; TEMP 36.6; O2SAT 97
[2019-08-10] MEDS: Apixaban 2.5 MG TAB PO (20:10)
[2019-08-10] MEDS: Ferrous Sulfate 325 MG TAB PO (20:10)
[2019-08-10] MEDS: Ascorbic Acid 500 MG TAB 250 MG PO (20:10)
[2019-08-10] MEDS: Terazosin 2 MG CAP 4 MG PO (20:11)
[2019-08-10] MEDS: risperiDONE 0.5 MG TAB 1.5 MG PO (23:00)
[2019-08-10] MEDS: Levothyroxine 25 MCG TAB 12.5 MCG PO (23:00)
[2019-08-10] MEDS: LORazepam 1 MG TAB PO (23:14)
[2019-08-10] MEDS: Melatonin 3 MG TAB PO (23:14)
[2019-08-10] MEDS: Insulin Glargine 300 UNITS/3 ML PEN 24 UNITS SC (23:24)
[2019-08-10 23:47] VITALS: BP 167/73; PULSE 91; RESP 20; TEMP 37.2; O2SAT 97
[2019-08-11 03:55] VITALS: BP 171/77; PULSE 66; RESP 17; TEMP 36.9; O2SAT 100
[2019-08-11] MEDS: Calcium 600mg/Vit D 200U TAB 1 TAB PO (06:10)
[2019-08-11] MEDS: ACETAMINOPHEN 1,000 MG/100 ML BTL 400 MG IVPB ×2 (06:10→15:07)
[2019-08-11] MEDS: VANCOMYCIN 1,000 MG in Normal Saline 250 ML 166.667 MG IV (06:46)
[2019-08-11 07:05] LABS: Abs Immature Grans 0.19 k/cumm (0.0-0.09); Absolute Basophil Count 0.01 k/cumm (0.0-0.2); Absolute Eosinophil Count 0.29 k/cumm (0.0-0.7); Absolute Lymphocyte Count 0.84 k/cumm (1.2-3.4); Absolute Monocyte Count 0.61 k/cumm (0.11-0.7); Absolute Neutrophil Count 6.72 k/cumm (1.2-6.7); Basophils % 0.1; Eosinophils % 3.3; HCT 28.1 % (40.0-50.0); HGB 8.2 g/dL (13.5-17.5); Immature Grans % 2.2 %; Lymphocytes % 9.7; Mean Corp. HGB Concentration 29.2 g/dL (32.0-36.0); Mean Corpuscular Hemoglobin 23.2 pg (27.0-33.0); Mean Corpuscular Volume 79.4 fL (80-95); Mean Platelet Volume 9.7 fL (8.0-11.0); Neutrophils % 77.7; Platelet Count 203 x1000/uL (130-400); RBC 3.54 m/cumm (4.50-6.00); RBC Distribution Width 21.1 % (11.8-14.1); White Blood Cell Count 8.66 k/cumm (4.4-10.8)
[2019-08-11 07:21] LABS: Anion Gap 7.3 mmol/L (3-11); BUN 47 mg/dL (7-18); C-Reactive Protein 0.34 mg/dL (0.0-0.3); CO2 22.7 mmol/L (21.0-32.0); CREATININE 1.57 mg/dL (0.70-1.30); Calcium 8.8 mg/dL (8.5-10.1); Chloride 108 mmol/L (98-107); Estimated GFR 45.29 (mL/min/1.73m2); Glucose 195 mg/dL (74-106); Magnesium 1.8 mg/dL (1.8-2.4); PHOSPHORUS 2.9 mg/dL (2.6-4.7); Potassium 4.7 mmol/L (3.5-5.1); Sodium 138 mmol/L (136-145)
[2019-08-11 07:53] VITALS: BP 174/75; PULSE 75; RESP 20; TEMP 36.7; O2SAT 97
[2019-08-11] MEDS: Terazosin 2 MG CAP 4 MG PO (08:32)
[2019-08-11] MEDS: Lactobacillus Acidophilus CAP 1 CAP PO ×2 (08:32→15:08)
[2019-08-11] MEDS: Ascorbic Acid 500 MG TAB 250 MG PO (08:33)
[2019-08-11] MEDS: amLODIPine 5 MG TAB 10 MG PO (08:33)
[2019-08-11] MEDS: hydrALAZINE 25 MG TAB 50 MG PO ×2 (08:33→12:16)
[2019-08-11] MEDS: Venlafaxine 37.5 MG CAPCR 112.5 MG PO (08:33)
[2019-08-11] MEDS: Gabapentin 300 MG CAP PO ×2 (08:33→15:08)
[2019-08-11] MEDS: Apixaban 2.5 MG TAB PO ×2 (08:33→11:17)
[2019-08-11] MEDS: Pantoprazole 40 MG TABCR PO (08:33)
[2019-08-11] MEDS: predniSONE 20 MG TAB 40 MG PO (08:34)
[2019-08-11] MEDS: Insulin Aspart 300 UNITS/3 ML PEN SC ×4 (08:34→12:16)
[2019-08-11] MEDS: Protein Nutritional Supplement 16 GM 1 OUNCE PACKET PO ×2 (08:34→15:08)
[2019-08-11] MEDS: Ferrous Sulfate 325 MG TAB PO (08:34)
[2019-08-11] MEDS: Normal Saline Flush 10 ML SYR IVP ×3 (08:47→15:08)
--- NOTE | 2019-08-11 10:19 | CMPROGNOTE_ITS ---
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 Since the [facility] is unable to provide this service, he will transition to B-1 status. Ultimately, Brendan will return to the [facility] when treatment is complete. will continue to support Brendan and his discharge planning concerns and will update his sister as needed.
--- NOTE | 2019-08-11 10:19 | PDOC.CMPRO ---
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 Since the [facility] is unable to provide this service, he will transition to B-1 status. Ultimately, Brendan will return to the [facility] when treatment is complete. will continue to support Brendan and his discharge planning concerns and will update his sister as needed.
[2019-08-11 11:36] VITALS: BP 176/70; PULSE 95; RESP 22; TEMP 36.8; O2SAT 97
--- NOTE | 2019-08-11 12:09 | PT.INTREAT ---
Date of service: 08/11/19 Time of Service: 11:05 PT Notes Visit Reasons: UTI,SACRAL ULCER W/ ABCESS,UNCONTROLLED DIABETES Inpatient Physical Therapy Treatment Note [facility] Date: 08/11/19 PRECAUTIONS: Fall, Activity as Tolerated SUBJECTIVE: Brendan is agreeable to participating in PT, however, he reports that he is extremely tired today. OBJECTIVE: PAIN: No c/o pain BED MOBILITY/TRANSFERS Supine-sit: I Sit-supine: Min A Sit-stand: CGA x2 from elevated bed surface Stand-sit: CGA x2 GAIT: Device: FWW Weight Bearing: Full Assist: CGA x2 Distance: 3 side steps to L Deviation: Shakiness THEREX: Patient completed ankle pumps, LAQ, hip abduction, and hip flexion exercises while seated at EOB. Static standing x30 seconds with CGA x2 and FWW support Static sitting x15 minutes with supervision. ASSESSMENT: Patient was able to perform standing and side stepping up the bed with FWW support and CGA x2. Patient continues to demonstrate significant overall weakness, and wou benefit from global strengthening and gait training. PLAN: Continue with PT's POC TREATMENT CODE/TIME: 35 minutes; [id number], [id number]
[2019-08-11] MEDS: HYDROmorphone 2 MG/ML VIAL 1 MG IVP (12:15)
--- NOTE | 2019-08-11 14:09 | W.PALPGNOTE ---
Date of service: 08/11/19 Time of Service: 10:09 Assessment and Plan Assessment and plan (1) Heart failure with preserved ejection fraction: Status: Acute (2) Diabetic gastroparesis: Status: Acute (3) Advanced care planning/counseling discussion: Status: Acute Assessment and plan: Again patient feels that he is dodged a bullet. He feels that he will live for a long time. He is hoping at least 5 years. Additionally he expects that he will be able to get well enough to leave the hospital, leave the long term that he is lived in for about 7 years, and live on his own. Brendan has very little reality into how tenuous his health is. He has little reserve. He has multiple comorbidities. He did not want to entertain anything except getting well, getting out of the hospital in the long term, and going home. Of note he has no home at this point. I will continue to see him. This document was created by [employer] software. Content was screened for misspellings, grammatical mistakes, etc. I apologize for any problems, but please contact me for further clarification if needed. Subjective Subjective Interval history since last seen: Brendan and I met after his acute ICU stay for small bowel obstruction and possible fistula formation. He is now on IV antibiotics. He feels it again he dodged the bullet. His goal is to get out of the hospital leave the long term and go home for his final days. He does not expect that his final days will be anytime soon. He is happy to be at [facility] as he loves the care. He does call at [facility]. [place]. He is eating better. There is better elimination. His Downing is out. Overall he feels that there is a vast improvement. He continues to need help with all activities of daily living except for eating. He cannot turn on his side in order to be repositioned. He has a wound VAC on the sacral lesion. He has IV fluids going. He does have the trilogy CPAP. Exam Narrative Exam Narrative: He is in a good mood. His heart is regular. His lungs little air movement but I did not appreciate any wheezes or rales. He does have some edema in both legs. Objective Objective Clinical Data: Abnormal lab results 08/11/19 08/11/19 Range/Units 06:25 06:25 RBC 3.54 L (4.50-6.00) m/cumm Hgb 8.2 L (13.5-17.5) g/dL Hct 28.1 L (40.0-50.0) % MCV 79.4 L (80-95) fL MCH 23.2 L (27.0-33.0) pg MCHC 29.2 L (32.0-36.0) g/dL RDW 21.1 H (11.8-14.1) % Absolute Neutrophils 6.72 H (1.2-6.7) k/cumm Absolute Lymphocytes 0.84 L (1.2-3.4) k/cumm Chloride 108 H (98-107) mmol/L BUN 47 H (7-18) mg/dL Creatinine 1.57 H (0.70-1.30) mg/dL Glucose 195 H (74-106) mg/dL C-Reactive Protein 0.34 H (0.0-0.3) mg/dL Vital Signs Temperature 98.2 F 08/11/19 11:36 Temperature Source Tympanic 08/11/19 11:36 Pulse 95 H 08/11/19 11:36 Pulse Rhythm Regular 08/11/19 02:21 Pulse 86 08/04/19 20:04 Respiratory Rate 22 08/11/19 11:36 Respiratory Effort Non-Labored 08/11/19 02:21 Respiratory Depth Normal 08/11/19 02:21 Respiratory Pattern Normal 08/11/19 02:21 Blood Pressure 176/70 H 08/11/19 11:36 Blood Pressure Mean 109 08/04/19 20:04 Blood Pressure Position Supine 08/04/19 15:06 Pulse Oximetry 97 08/11/19 11:36 Oxygen Delivery Method Room Air 08/11/19 11:36 Oxygen Flow Rate 0 08/11/19 11:36 Pain Level 0 08/11/19 12:15 Comment 08/11/19 12:15 Intake & Output 08/10/19 08/11/19 08/11/19 23:59 11:59 23:59 Intake Total 580 / 930 380 / 920 540 / 920 Output Total 2300 / 4070 1300 / 1850 550 / 1850 Balance -1720 / -3140 -920 / -930 -10 930 Intake: IV 230 / 580 380 / 380 Oral 350 / 350 540 / 540 Output: Urine 1600 / 2820 975 / 1375 400 / 1375 Stool 700 / 1250 325 / 475 150 / 475 Other: Urine Color Yellow Yellow Yellow Urine Appearance Clear Clear Clear Urine Odor Normal None Comment Void x1 in the urinal. Void x1 in the urinal. Voiding Methods Urinal Urinal Urinal Laboratory Results WBC 8.66 k/cumm (4.4-10.8) 08/11/19 06:25 RBC 3.54 m/cumm (4.50-6.00) L 08/11/19 06:25 Hgb 8.2 g/dL (13.5-17.5) L 08/11/19 06:25 Hct 28.1 % (40.0-50.0) L 08/11/19 06:25 MCV 79.4 fL (80-95) L 08/11/19 06:25 MCH 23.2 pg (27.0-33.0) L 08/11/19 06:25 MCHC 29.2 g/dL (32.0-36.0) L 08/11/19 06:25 RDW 21.1 % (11.8-14.1) H 08/11/19 06:25 Plt Count 203 x1000/uL (130-400) 08/11/19 06:25 MPV 9.7 fL (8.0-11.0) 08/11/19 06:25 Immature Gran % 2.2 % 08/11/19 06:25 Neutrophils % 77.7 08/11/19 06:25 Band Neutrophils % Cancelled 08/03/19 06:20 Lymphocytes % 9.7 08/11/19 06:25 Atypical Lymphs % Cancelled 08/03/19 06:20 Monocytes % 7.0 08/11/19 06:25 Eosinophils % 3.3 08/11/19 06:25 Basophils % 0.1 08/11/19 06:25 Metamyelocytes % Cancelled 08/03/19 06:20 Myelocytes % Cancelled 08/03/19 06:20 Promyelocytes % Cancelled 08/03/19 06:20 Absolute Neutrophils 6.72 k/cumm (1.2-6.7) H 08/11/19 06:25 Absolute Lymphocytes 0.84 k/cumm (1.2-3.4) L 08/11/19 06:25 Absolute Monocytes 0.61 k/cumm (0.11-0.7) 08/11/19 06:25 Absolute Eosinophils 0.29 k/cumm (0.0-0.7) 08/11/19 06:25 Absolute Basophils 0.01 k/cumm (0.0-0.2) 08/11/19 06:25 Nucleated RBCs Cancelled 08/03/19 06:20 Differential Comment Rbc morph reviewed 08/06/19 07:15 Other Cell Type Cancelled 08/03/19 06:20 RBC Morphology See below 08/06/19 07:15 Polychromasia Cancelled 08/03/19 06:20 Hypochromasia 3+ 08/06/19 07:15 Poikilocytosis Cancelled 08/03/19 06:20 Basophilic Stippling Present 08/06/19 07:15 Anisocytosis 2+ 08/06/19 07:15 Microcytosis 3+ 08/06/19 07:15 Macrocytosis Cancelled 08/03/19 06:20 Spherocytes Cancelled 08/03/19 06:20 Target Cells Cancelled 08/03/19 06:20 Tear Drop Cells Cancelled 08/03/19 06:20 Ovalocytes 2+ 08/06/19 07:15 Stomatocytes Cancelled 08/03/19 06:20 Glover-Gurley Bodies Cancelled 08/03/19 06:20 [place] Cells Cancelled 08/03/19 06:20 Acanthocytes (Spur) Cancelled 08/03/19 06:20 Schistocytes Cancelled 08/03/19 06:20 ESR 55 mm/hr (1-20) H 07/24/19 18:10 PT 10.0 sec (9.3-11.0) 08/09/19 06:30 INR 1.0 (0.9-1.1) 08/09/19 06:30 APTT 26.4 sec (21.0-31.4) 07/24/19 18:10 ABG Sample Site Left radial 07/30/19 08:30 ABG pH 7.32 (7.35-7.45) L 07/30/19 08:30 ABG pCO2 53 mmHg (34-47) H 07/30/19 08:30 ABG pO2 117 mmHg (83-108) H 07/30/19 08:30 ABG HCO3 27 mmol/L (22-28) 07/30/19 08:30 ABG Total CO2 26 mmol/L (22-29) 07/30/19 08:30 ABG O2 Saturation 99 % (94-98) H 07/30/19 08:30 ABG Base Excess 0.7 mmol/L (-3-3) 07/30/19 08:30 Oxygen Liter Flow 2 L 07/30/19 08:30 Sodium 138 mmol/L (136-145) 08/11/19 06:25 Potassium 4.7 mmol/L (3.5-5.1) 08/11/19 06:25 Chloride 108 mmol/L (98-107) H 08/11/19 06:25 Carbon Dioxide 22.7 mmol/L (21.0-32.0) 08/11/19 06:25 Anion Gap 7.3 mmol/L (3-11) 08/11/19 06:25 BUN 47 mg/dL (7-18) H 08/11/19 06:25 Creatinine 1.57 mg/dL (0.70-1.30) H 08/11/19 06:25 Estimated GFR/1.73 m2 45.29 (mL/min/1.73m2) 08/11/19 06:25 Glucose 195 mg/dL (74-106) H 08/11/19 06:25 Lactate 0.7 mmol/L (0.6-1.4) 07/30/19 15:40 Calcium 8.8 mg/dL (8.5-10.1) 08/11/19 06:25 Phosphorus 2.9 mg/dL (2.6-4.7) 08/11/19 06:25 Magnesium 1.8 mg/dL (1.8-2.4) 08/11/19 06:25 Iron 42 ug/dL (65-175) L 07/29/19 06:45 TIBC 157 ug/dL (250-450) L 07/29/19 06:45 Transferrin % Sat 27 % (20-55) 07/29/19 06:45 Ferritin 660 ng/mL (26-388) H 07/29/19 06:45 Total Bilirubin 0.5 mg/dL (0.2-1.0) 08/09/19 06:30 AST 16 U/L (15-37) 08/09/19 06:30 ALT 21 U/L (16-63) 08/09/19 06:30 Alkaline Phosphatase 104 U/L (46-116) 08/09/19 06:30 Troponin I < 0.05 ng/mL (<0.06) 08/01/19 12:25 C-Reactive Protein 0.34 mg/dL (0.0-0.3) H 08/11/19 06:25 Total Protein 5.3 g/dL (6.4-8.2) L 08/09/19 06:30 Albumin 2.5 g/dL (3.4-5.0) L 08/09/19 06:30 Prealbumin 25 mg/dL (20-40) 08/02/19 06:05 Lipase 25 U/L (73-393) 08/05/19 06:30 Tumor Marker AFP <2.5 ng/mL (<8.1) 07/27/19 06:35 Carcinoembryonic Ag 1.5 ng/ml (See Note) 07/26/19 06:45 Procalcitonin 0.1 ng/mL 08/05/19 06:30 TSH 0.28 uIU/mL (0.36-3.74) L 07/24/19 18:10 Free T4 1.20 ng/dL (0.76-1.46) 07/24/19 18:10 Urine Color Yellow (Yellow) 08/02/19 14:10 Urine Clarity Clear (Clear) 08/02/19 14:10 Urine pH 6.5 (5-8) 08/02/19 14:10 Ur Specific [place] 1.015 (1.005-1.025) 08/02/19 14:10 Urine Protein 100 mg/dL (Negative) H 08/02/19 14:10 Urine Ketones Negative mg/dL (Negative) 08/02/19 14:10 Urine Blood Trace-intact (Negative) H 08/02/19 14:10 Urine Nitrite Negative (Negative) 08/02/19 14:10 Urine Bilirubin Negative (Negative) 08/02/19 14:10 Urine Urobilinogen 0.2 EU/dL (Up TO 0.2) 08/02/19 14:10 Ur Leukocyte Esterase Negative (Negative) 08/02/19 14:10 Urine RBC 0-2 HPF (0-2) 08/02/19 14:10 Urine WBC 5-10 HPF (0-5) 08/02/19 14:10 Ur Epithelial Cells Few HPF (Negative) 08/02/19 14:10 Urine Crystals Negative HPF (Negative) 08/02/19 14:10 Urine Bacteria Few HPF (Negative) 08/02/19 14:10 Urine Casts 0-2 hyaline LPF (Negative) 08/02/19 14:10 Urine Mucus Negative (Negative) 08/02/19 14:10 Urine Other Few transitional (Negative) 08/02/19 14:10 Ur Culture Indicated? Yes 08/02/19 14:10 Urine Glucose 250 mg/dL (Negative) H 08/02/19 14:10 Vancomycin Trough 21.8 ug/mL (10.0-20.0) H* 08/10/19 01:40 c-ANCA Negative (Negative) 07/27/19 06:35 p-ANCA Negative (Negative) 07/27/19 06:35 COVID-19 PCR Negative (Negative) 07/24/19 21:45 Nasopharyn COVID-19 PCR Not Applicable 07/24/19 21:45 [facility] Test [facility] 07/24/19 21:45 Patient ABO/Rh AB Negative 07/25/19 10:55 Antibody Screen Negative 07/25/19 10:55
--- NOTE | 2019-08-11 14:15 | DSE_ITS ---
DS: Diagnosis Discharge Diagnosis (1) SBO (small bowel obstruction): Status: Resolved (2) Decubitus ulcer, stage 4 with infection: Status: Chronic (3) MRSA bacteremia: Status: Acute (4) Ventricular escape rhythm: Status: Acute (5) Adrenal insufficiency: Status: Chronic (6) Atrial flutter, paroxysmal: Status: Chronic (7) Diabetes mellitus: Status: Chronic (8) History of DVT (deep vein thrombosis): Status: Chronic (9) Bradycardia: Status: Resolved (10) CHF (congestive heart failure): Status: Chronic (11) Hypoventilation associated with obesity syndrome: Status: Chronic (12) Hypertension: Status: Chronic (13) Ulcer of left lower leg: Status: Chronic (14) DVT prophylaxis: Status: Resolved (15) Discharge planning issues: Status: Resolved Discharge Plan Disposition Patient Disposition: [facility] BED LEVEL 1 Condition: Stable Discharge Details Chief Complaint: GenMedical Clinical Impression: Sacral decubitus ulcer, stage III, UTI (urinary tract infection), Hyperglycemia Reason For Visit: UTI,SACRAL ULCER W/ ABCESS,UNCONTROLLED DIABETES Admit Date/Time: 07/24/19 20:23 Admit Provider: Chance Fragoso Attending Provider: Chance Fragoso Primary Care Provider: Lou Maldonado ED Provider: Reny Trejo Hospital Course Hospital Course: 59-year-old morbidly obese male who is been nonambulatory for years and has been a resident at [facility] in [facility] since the age of 39 secondary to multiple comorbidities. His past medical history includes poorly controlled type 2 diabetes mellitus requiring insulin, Crohn's disease for which he has had a proctocolectomy and has a chronic ileostomy, history of adrenal insufficiency requiring long-term steroid use, coronary artery disease for which she has had a cardiopulmonary arrest, chronic cholelithiasis and chronic cholecystitis requiring T-tube biliary drainage, paroxysmal atrial fibrillation for which she has been on Eliquis (also being treated for DVT), RA, Chronic ki dney disease, obstructive sleep apnea for which he uses a Trilogy device. Patient was seen in the emergency department one day prior to admission and diagnosed with a UTI and [facility] However he was sent back into the emergency department on July 24, 2019 because of complaints of worsening leukocytosis generalized malaise along with worsening glycemic control and a chronic sacral ulcer that was worsening and becoming purulent. On admission he had a leukocytosis of 25,000 and a stable chronic anemia with a hemoglobin 9.8 g with a glucose of 650 but no anion gap acidosis. His renal function had deteriorated with an elevated BUN of 65 creatinine 2.65 and an elevated CRP of 11.7. Patient underwent wound debridement and had cultures obtained from his sacral ulcer as well as blood cultures and urine cultures obtained. He was found to have an ESBL E. coli UTI and his Downing catheter was changed he was treated with meropenem. Wound and blood cultures grew out MRSA and he was started on vancomycin. Surgical consultations were obtained with Dr. Lela Webb as well as her partners Dr. Elvin Prado and Dr. Shelli Newman. Patient required multiple wound debridements and subsequent wound vacuum to his sacral decubitus. Dr. Webb felt that there was no evidence for osteomyelitis. CT scan of the pelvis on admission showed infra coccygeal soft tissue abscess in the subcutaneous fat measuring 5 x 3 cm with diffuse inflammation of the retro-sacral and buttocks region on the left but no intrapelvic fluid collection or adenopathy. No gross bony destruction was seen of the sacrum or coccyx. Patient's hospital course was complicated by 2 distinct episodes of small bowel obstruction which were managed medically with NG decompression and bowel rest. He did require TPN during his hospitalization. Because of the recurrent small bowel obstruction and ileus patient underwent a nuclear gastric emptying study which showed evidence for gastroparesis with greater than 50% of the contents still present 5 hours postingestion. Patient was started on erythromycin base to treat his gastroparesis. He was not a candidate for Reglan due to his multiple psychiatric medications as well as his cardiovascular medications. During his hospitalization he exhibited significant bradycardia with ventricular escape beats for which a cardiology consultation was obtained with Dr. Angeles. It was felt that his ventricular escape beats were caused by the bradycardia which was exacerbated by his use of beta-blockers for his paroxysmal atrial fibrillation as well as his underlying obstructive sleep apnea. His beta-lia was discontinued and he has remained in sinus rhythm and has not had any significant bradycardic spells and his ventricular escape beats have resolved. Dr. Webb feels that his sacral decubitus is unlikely to heal and he would not benefit from a plastic surgery consult for flap because of his continued pressure over his sacrum due to his inability to cooperate with pressure relief measures. She also recommended a low-fat low fiber diet for treatment of his gastroparesis as well as an ongoing trial of erythromycin. Patient's original blood cultures were positive for MRSA but a follow-up blood culture obtained from July 27, 2019 showed no growth. An echocardiogram obtained August 01 showed no vegetations. Patient's heart failure is with preserved ejection fraction as his LVEF is 50 to 55% and he has moderate concentric LVH and normal systolic motion. No vegetations were seen on his echocardiogram. He is now being discharged from the acute inpatient medical setting into a swing bed status for completion of his IV antibiotic treatment as well as ongoing wound care of his sacral decubitus as well as his stasis ulcer of his left leg. He is expected to complete at least 4 weeks of parenteral antibiotics with vancomycin and the projected date of completion is August 24, 2019 Home Meds and New Rx's Prescriptions: No Action cyanocobalamin (vitamin B-12) 1,000 mcg Tablet 1,000 mcg PO DAILY RF: 0 ferrous sulfate 325 mg (65 mg iron) Tablet 325 mg PO BID Qty: 0 RF: 0 ascorbic acid (vitamin C) [Vitamin C] 250 mg Tablet 1 tab PO BID RF: 0 Centrum Complete 18-400 mg-mcg Tablet 1 tab PO DAILY RF: 0 pantoprazole 40 mg Tablet,Delayed Release (Dr/Ec) 40 mg PO DAILY Qty: 60 RF: 0 melatonin 3 mg Tablet Extended Release 6 mg PO HS Qty: 30 RF: 0 calcium carbonate-vitamin D3 [Calcium 500 + D] 500 mg(1,250mg) -400 unit Tablet 1 tab PO BID RF: 0 acetaminophen [Tylenol] 325 mg tablet See Rx Instructions .ROUTE .COMPLEX RF: 0 gabapentin 100 mg capsule 300 mg PO TID RF: 0 risperidone [Risperdal] 2 mg tablet 1.5 mg PO HS RF: 0 vitamin B complex 100 2-herbs 100 mg Tablet 1 tab PO DAILY RF: 0 Enrique 7-7-1.5 gram Powder In Packet 1 packet PO BID RF: 0 Combivent Respimat 20-100 mcg/actuation Mist 1 puff INHALATION Q6H PRNRF: 0 acidophilus-pectin, citrus 25 million cell -100 mg tablet 1 cap PO DAILY RF: 0 insulin lispro [Humalog KwikPen Insulin] 100 unit/mL Insulin Pen 0 unit SUBCUT AC RF: 0 nystatin 100,000 unit/gram Powder 0 g topical BID Qty: 0 RF: 0 sodium bicarbonate 650 mg Tablet 650 mg PO BID Qty: 90 RF: 0 potassium bicarb-citric acid 20 mEq tablet, effervescent 20 meq PO DAILY Qty: 30 RF: 0 terazosin 2 mg Capsule 4 mg PO BID Qty: 0 RF: 0 magnesium chloride [Mag 64] 64 mg Tablet,Delayed Release (Dr/Ec) 64 mg PO BID Qty: 0 RF: 0 venlafaxine [Effexor XR] 37.5 mg Capsule,Extended Release 24hr 112.5 mg PO DAILY RF: 0 Zyrtec 10 mg Capsule 10 mg PO DAILY RF: 0 amlodipine 5 mg tablet 10 mg PO DAILY RF: 0 levothyroxine 25 mcg tablet 12.5 mcg PO HS RF: 0 Lantus Solostar U-100 Insulin 100 unit/mL (3 mL) insulin pen 50 unit subcut DIRECTED RF: 0 insulin aspart U-100 100 unit/mL (3 mL) insulin pen 10 unit SC AC Qty: 15 RF: 0 metoprolol tartrate 25 mg Tablet 25 mg PO BID RF: 0 clonidine HCl [Catapres] 0.1 mg tablet 0.1 mg PO TID Qty: 0 RF: 0 Eliquis 5 mg Tablet 2.5 mg PO BID Qty: 60 RF: 0 lorazepam [Ativan] 1 mg Tablet 1 mg PO Q8H PRNRF: 0 furosemide [Lasix] 40 mg tablet 80 - 100 mg PO BID RF: 0 CertaVite Senior-Antioxidant 0.4-300-250 mg-mcg-mcg Tablet 1 tab PO QAM RF: 0 Duoneb 3 ml inhalation PRN PRNRF: 0 cephalexin 500 mg tablet 500 mg PO BID 7 Days Qty: 14 RF: 0 prednisone 1 mg tablet See Rx Instructions .ROUTE .COMPLEX RF: 0 Discharge Instructions Instructions: MRSA (Methicillin-Resistant Staphylococcus Aureus) (DC), How to Prevent Pressure Injuries (DC) Activity:: Activity as Tolerated Equipment/Supplies:: No Equipment Needed Diet:: Low-fat low fiber Discharge Orders Discharge Orders: Discharge Order (Routine); Ordered 08/11/19 Ordered By: Manuel Fisher DS: Summary Status at Discharge Functional status at discharge: bed bound Overall status at discharge: patient is progressing back to baseline Mental Status: mental status grossly normal Speech and Movement: speech and movement normal Mood: congruent mood Affect: normal affect Time Spent with Patient providing and/or coordinating discharge services: Greater than 30 minutes Exam Narrative Exam Narrative: Morbidly obese male lying in bed in the left lateral decubitus position for his dressing change Sacrum has a wound that is very deep and tunneled and wide and is oozing blood. No purulent drainage at this time. Because of heavy oozing of blood from the wound, Dr. Webb has recommended just packing the wound for now and resuming the wound vaccuum tomorrow. Psych Mental Status: mental status grossly normal Speech and Movement: speech and movement normal Mood: congruent mood Affect: normal affect DS: Data Vitals/I&O Vitals and I&O: Vital Signs Temperature 36.8 C 08/11/19 11:36 Temperature Source Tympanic 08/11/19 11:36 Pulse 95 H 08/11/19 11:36 Pulse Rhythm Regular 08/11/19 02:21 Pulse 86 08/04/19 20:04 Respiratory Rate 22 08/11/19 11:36 Respiratory Effort Non-Labored 08/11/19 02:21 Respiratory Depth Normal 08/11/19 02:21 Respiratory Pattern Normal 08/11/19 02:21 Blood Pressure 176/70 H 08/11/19 11:36 Blood Pressure Mean 109 08/04/19 20:04 Blood Pressure Position Supine 08/04/19 15:06 Pulse Oximetry 97 08/11/19 11:36 Oxygen Delivery Method Room Air 08/11/19 11:36 Oxygen Flow Rate 0 08/11/19 11:36 Pain Level 0 08/11/19 12:15 Comment 08/11/19 12:15 Intake & Output 08/10/19 08/11/19 08/11/19 23:59 11:59 23:59 Intake Total 580 / 930 380 / 920 540 / 920 Output Total 2300 / 4070 1300 / 1850 550 / 1850 Balance -1720 / -3140 -920 / -930 -10 930 Intake: IV 230 / 580 380 / 380 Oral 350 / 350 540 / 540 Output: Urine 1600 / 2820 975 / 1375 400 / 1375 Stool 700 / 1250 325 / 475 150 / 475 Other: Urine Color Yellow Yellow Yellow Urine Appearance Clear Clear Clear Urine Odor Normal None Comment Void x1 in the urinal. Void x1 in the urinal. Voiding Methods Urinal Urinal Urinal Data Completed and Pending Labs on day of discharge: Labs from last 24 hours 08/11/19 08/11/19 06:25 06:25 WBC 8.66 RBC 3.54 L Hgb 8.2 L Hct 28.1 L MCV 79.4 L MCH 23.2 L MCHC 29.2 L RDW 21.1 H Plt Count 203 MPV 9.7 Immature Gran % 2.2 Neutrophils % 77.7 Lymphocytes % 9.7 Monocytes % 7.0 Eosinophils % 3.3 Basophils % 0.1 Absolute Neutrophils 6.72 H Absolute Lymphocytes 0.84 L Absolute Monocytes 0.61 Absolute Eosinophils 0.29 Absolute Basophils 0.01 Sodium 138 Potassium 4.7 Chloride 108 H Carbon Dioxide 22.7 Anion Gap 7.3 BUN 47 H Creatinine 1.57 H Estimated GFR/1.73 m2 45.29 Glucose 195 H Calcium 8.8 Phosphorus 2.9 Magnesium 1.8 C-Reactive Protein 0.34 H [facility] Medical History (Updated 08/11/19 @ 14:16 by Manuel Fisher) Acromegaly (Chronic) Acute on chronic kidney failure (Resolved) Adrenal insufficiency (Chronic) Ambulatory dysfunction (Chronic) Anemia (Chronic Unknown) Atrial flutter, paroxysmal (Chronic) Back pain (Chronic 06/21/13) CAD (coronary artery disease) (Chronic) Cardiopulmonary arrest with successful resuscitation (Resolved) Chronic anxiety (Chronic) Chronic bipolar disorder (Chronic) a. With history of psychosis. Chronic cholecystitis (Chronic) Chronic insomnia (Chronic) Chronic iron deficiency anemia (Acute) Chronic pain (Chronic) On both Methadone and Fentanyl as well as Ultram and Naproxen. CKD (chronic kidney disease) (Chronic) Decubitus ulcer of sacral region, stage 4 (Acute) Decubitus ulcer, stage 4 with infection (Chronic) Diabetes mellitus (Chronic) Diabetic ulcer of toe associated with diabetes mellitus due to underlying condition, with bone involvement without evidence of necrosis (Inactive) 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 (Resolved) DVT (deep venous thrombosis) (Chronic) Dg April 2019. Has IVC filter placed 04/2019 Dyslipidemia (Chronic) Endocarditis due to Staphylococcus (Resolved) Hemorrhagic cystitis (Chronic) Hep C w/o coma, chronic (Acute) History of DVT (deep vein thrombosis) (Chronic) Hyperkalemia (Resolved) Hypomagnesemia (Resolved) Hypothyroidism (Chronic) Hypoventilation associated with obesity syndrome (Chronic) Ileostomy in place (Acute) Impaired mobility and ADLs (Chronic) Inability to get out of bed (Chronic 06/21/13) Lactic acidosis (Resolved) MRSA bacteremia (Acute) Obesity (Chronic) a. Obesity though he has had significant weight loss since last seen. Old non-ST elevation myocardial infarction (NSTEMI) (Acute) March 2019 Open wound of left lower extremity without complication (Acute) secondary to trauma and from anticoagulation 04/2019 Osteoarthritis of both knees (Chronic) Severe. a. [id number] bilateral knees. 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 2 diabetes mellitus (Resolved) Palliative care encounter (Chronic) DObbertin PEA (Pulseless electrical activity) (Acute) episode of bradycardic arrest/PEA. thought to be secondary to gram neg sepsis from acute sonny. 03/2019 Pedal edema (Chronic) Persistent vomiting in adult patient (Acute) Poor self care (Chronic 06/21/13) Poorly controlled type 2 diabetes mellitus with circulatory disorder (Chronic) Presence of IVC filter (Acute) Protein-calorie malnutrition, mild (Acute) Pulmonary hypertension (Chronic) Rheumatoid arthritis (Chronic) Sepsis (Resolved) Septic arthritis of elbow, right (Inactive) Toxic metabolic encephalopathy (Resolved) Ulcer of left lower leg (Chronic) Ulcerative colitis (Chronic) UTI (urinary tract infection) (Resolved) UTI (urinary tract infection) due to Enterococcus (Resolved) Surgical History Arthroplasty of knee (Resolved 03/18/12) irrigation and lavage right Fracture, Open Treatment (Resolved) 06/06/17[place] [place]P ORIF RIGHT DISTAL HUMERUS FRACTURE History of insertion of T-tube into biliary tract (Chronic) S/P colectomy (Chronic) S/P proctocolectomy (Acute) Social History Smoking/Tobacco Use Status: Former Tobacco Use Alcohol Intake: former Drug use: Rarely Substance use type: marijuana Housing: [facility] Do you feel safe at home: Yes Do you feel safe in your relationship?: Yes Additional Social history[place] [facility] [place]
--- NOTE | 2019-08-11 14:36 | PT.INNT ---
Date of service: 08/11/19 Time of Service: 14:36 PT Notes Visit Reasons: UTI,SACRAL ULCER W/ ABCESS,UNCONTROLLED DIABETES 08/11/19 Brendan pleasantly declined afternoon PT session, stating they've been moving me around all afternoon, and I've finally gotten comfortable, can we just do it again tomorrow? Will attempt to resume PT services tomorrow morning. Elsa Harry, HOME SCHOOL LIAISON OFFICER
--- NOTE | 2019-08-11 15:18 | WOUNDCONS ---
- If Service Date Differs Date of service: 08/11/19 Time of Service: 15:18 Wound Initial Evaluation Narrative: Wound Care Consult placed by Hospitalist today to Follow and assist with management of sacral ulcer and leg stasis ulcer Wound team has previously consulted Mr. Corley for these wounds already during this admission and will continue to follow him weekly and assist surgical services and hospitalist as needed w/wound care. Assisted with sacral ulcer today, Dr. Webb used curette to remove slough in wound and Pt bleed significantly. Wound vac NOT replaced on wound. NS gauze packed in wound and reinforced w/4x4's to help stop bleeding. will reevaluate wound vac placement tomorrow. LLE venous ulcer healing nicely. Almost completely epithelized, small 1.8x0.3 area in center of wound still has partial thickness skin loss. DFU on left foot has calloused wound bed, no vascular tissue identified. Pt naturopathic, denies pain. Thank you for the consult. Treatment Time - Patient Will be Seen Weekly Treatment: 1x/wk
== END 2019-08-11 16:06 | disposition swing bed (61) | DRG 853 ==
LOC: ER 21:57 → MS 22:05 → ICU 07-30 10:05 → MS 08-11 13:59 → ICU 08-12 12:43
PROVIDERS: Family Medicine; General Practice; Internal Medicine; Nurse Practitioner Family; Registered Nurse Emergency; Surgery; Admitting Provider Family Medicine; Emergency Provider Physician Assistant; PCP Family Medicine; Visit Provider Family Medicine
PROC: 0JB70ZZ Excision of Back Subcutaneous Tissue and Fascia, Open Approach (ICD-10-PCS; CPT 11045; principal; 2019-07-25 11:00)
DX: R78.81 Bacteremia (principal); L89.154 Pressure ulcer of sacral region, stage 4; I50.33 Acute on chronic diastolic (congestive) heart failure; L02.219 Cutaneous abscess of trunk, unspecified; N39.0 Urinary tract infection, site not specified; E27.40 Unspecified adrenocortical insufficiency; I48.92 Unspecified atrial flutter; N17.9 Acute kidney failure, unspecified; E66.2 Morbid (severe) obesity with alveolar hypoventilation; I13.0 Hypertensive heart and chronic kidney disease with heart failure and stage 1 through stage 4 chronic kidney disease, or unspecified chronic kidney disease; Z16.12 Extended spectrum beta lactamase (ESBL) resistance; E44.1 Mild protein-calorie malnutrition; E27.2 Addisonian crisis; L97.821 Non-pressure chronic ulcer of other part of left lower leg limited to breakdown of skin; K56.609 Unspecified intestinal obstruction, unspecified as to partial versus complete obstruction; K31.1 Adult hypertrophic pyloric stenosis; B95.62 Methicillin resistant Staphylococcus aureus infection as the cause of diseases classified elsewhere; B96.20 Unspecified Escherichia coli [E. coli] as the cause of diseases classified elsewhere; I49.3 Ventricular premature depolarization; E11.65 Type 2 diabetes mellitus with hyperglycemia; N18.9 Chronic kidney disease, unspecified; E11.22 Type 2 diabetes mellitus with diabetic chronic kidney disease; D63.1 Anemia in chronic kidney disease; I87.2 Venous insufficiency (chronic) (peripheral); E78.5 Hyperlipidemia, unspecified; Z91.19 Patient's noncompliance with other medical treatment and regimen; Z68.32 Body mass index [BMI] 32.0-32.9, adult; Z79.4 Long term (current) use of insulin; Z93.2 Ileostomy status; Z79.01 Long term (current) use of anticoagulants; M06.9 Rheumatoid arthritis, unspecified; I48.0 Paroxysmal atrial fibrillation; E11.59 Type 2 diabetes mellitus with other circulatory complications; E03.9 Hypothyroidism, unspecified; Z22.322 Carrier or suspected carrier of Methicillin resistant Staphylococcus aureus; Z74.01 Bed confinement status; F31.9 Bipolar disorder, unspecified; E83.42 Hypomagnesemia; Z79.52 Long term (current) use of systemic steroids; E86.0 Dehydration; I25.10 Atherosclerotic heart disease of native coronary artery without angina pectoris; B18.2 Chronic viral hepatitis C; I25.2 Old myocardial infarction; Z90.49 Acquired absence of other specified parts of digestive tract; Z71.3 Dietary counseling and surveillance; E87.5 Hyperkalemia; Z95.828 Presence of other vascular implants and grafts; Z86.718 Personal history of other venous thrombosis and embolism; R00.1 Bradycardia, unspecified; I27.20 Pulmonary hypertension, unspecified; Z51.5 Encounter for palliative care; E87.6 Hypokalemia; E11.43 Type 2 diabetes mellitus with diabetic autonomic (poly)neuropathy; K31.84 Gastroparesis; K21.9 Gastro-esophageal reflux disease without esophagitis; R11.15 Cyclical vomiting syndrome unrelated to migraine; Z03.818 Encounter for observation for suspected exposure to other biological agents ruled out
CPT/HCPCS: 11045 ×3; 11046 ×13; 11042; 11043 ×2; 36410; 36415; 36416; 36569; 36592; 71045; 77001; 78265; 80048; 80053; 82805; 82947; 82962; 83690; 84145; 85027; 85652; 86850; 86900; 86901; 87040; 87077; 87081; 88305; 93306; 96361; 96365; 96366; 96375; 97163; 97530; 99222; 99223; 99231; 99232; 99233; 99239; 99253; 99254; 99255; 99285; 99291; NC; U0003; 36600; 72192; 74018; 74176; 80202; 81003; 81015; 82105; 82378; 82728; 83540; 83550; 83605; 83735; 84100; 84134; 84439; 84443; 84484; 85014; 85018; 85025; 85610; 85730; 86140; 86255; 87070; 87086; 87186; 87205; 87324; 88307; 93005; 93010; J0131; J0360; J0696; J1450; J1650; J1720; J1756; J1940; J1941; J2250; J2270; J2405; J2543; J2997; J3475; J3480; J3490; J7512; Q9967

== ENCOUNTER → 2019-08-02 08:42 | Outpatient (BNVA) | payer MEDICARE, MEDICAID, SELFPAY | PROVIDERS: PCP Family Medicine; Referring Provider Family Medicine; Visit Provider Internal Medicine Cardiovascular Disease | DX: R69 Illness, unspecified (principal) ==

== ENCOUNTER 2019-08-11 13:46 | Inpatient (IN) | payer MEDICARE, MEDICAID, SELFPAY ==
--- NOTE | 2019-08-11 13:55 | W.PM.HP.N ---
Date of service: 08/11/19 Time of Service: 13:55 Assessment and Plan Assessment and plan (1) MRSA bacteremia: Status: Acute Assessment and plan: will need at least 4 weeks of parenteral anti-staphylococcal antibiotics (Vancomycin) from the date of his first negative blood culture (07/27/2019) therefore he will be on Vancomycin through 08/22. (2) Decubitus ulcer, stage 4 with infection: Status: Chronic Assessment and plan: patient had a lot of oozing of blood when Dr. Webb debrided his wound and therefore she recommended just packing his wound for now and holding his Eliquis for 48 hrs. I have put his Eliquis on hold for now. (3) Protein-calorie malnutrition, mild: Status: Acute Assessment and plan: receiving protein supplements and MVI and vitamin C and zinc supplementation to promote wound healing. Unfortunately he lost ground while being NPO during his SBO despite having been temporarily on TPN. (4) Diabetic gastroparesis: Status: Acute Assessment and plan: continue w/ low fiber, low fat diet. Patient to be started on EES to promote motility. (5) Diabetes mellitus: Status: Chronic Assessment and plan: continue basal/bolus insulin therapy w/ SSI for coverage of high readings. 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 This should be tapered, however, his baseline dose was 13 mg when he presented to the hospital. This ought to be gradually decreased. I would continue the prednisone at 40 mg daily for a week then decrease to 30 mg daily for a week then 20 mg daily then decrease more slowly by 5 mg/day/week. (7) Ulcer of left lower leg: Status: Chronic Assessment and plan: continue wound care per nursing. Qualifiers: Non-pressure ulcer stage: limited to breakdown of skin Qualified Code(s): L97.921 - Non-pressure chronic ulcer of unspecified part of left lower leg limited to breakdown of skin (8) Heart failure with preserved ejection fraction: Status: Acute Assessment and plan: cont. current meds (hydralazine, and amlodipine) (9) Atrial flutter, paroxysmal: Status: Chronic Assessment and plan: rate remains controlled despite removal of his lopressor (d/t bradycardia w/ ventricular escape beats) (10) CAD (coronary artery disease): Status: Chronic Assessment and plan: currently not experiencing any ischemia. will monitor for now. no plans for further workup as he is not a candidate for any cardiac intervention (11) Junctional (hamzah) bradycardia: Status: Acute Assessment and plan: remain off lopressor/AV hamzah blocking agents. (12) Anemia: Status: Chronic Qualifiers: Anemia type: due to chronic kidney disease Chronic kidney disease stage: stage 4 (severe) Qualified Code(s): N18.4 - Chronic kidney disease, stage 4 (severe); D63.1 - Anemia in chronic kidney disease (13) CKD (chronic kidney disease): Status: Chronic Qualifiers: Chronic kidney disease stage: unspecified stage Qualified Code(s): N18.9 - Chronic kidney disease, unspecified (14) Obstructive sleep apnea: Status: Chronic Assessment and plan: continue use of CPAP at night (15) DVT (deep venous thrombosis): Status: Chronic Assessment and plan: resume Eliquis at lower dose once ok by Dr. Webb (she asked us to hold for 48 hrs to allow his decubitus wound to stop bleeding) (16) Hep C w/o coma, chronic: Status: Acute (17) Rheumatoid arthritis: Status: Chronic (18) Advanced care planning/counseling discussion: Status: Acute Assessment and plan: remains full code per Dr. Horowitz's discussion w/ the patient. (19) Discharge planning issues: Status: Acute Assessment and plan: discharge to [facility] upon completion of his antibiotics. History of Present Illness History of Present Illness Chief Complaint: Sacral decubitus wound with MRSA bacteremia Narrative: See the patient's discharge summary for details. In summary this 59-year-old poorly controlled type II diabetic requiring insulin and a history of chronic kidney disease coronary artery disease paroxysmal atrial fibrillation JESSICA, rheumatoid arthritis, Crohn's disease status post proctocolectomy with ileostomy presented emergency department on July 24, 2019 with generalized malaise fatigue worsening glycemic control and labs consistent with sepsis with severe leukocytosis with a white count in the 20,000's along with worsening renal failure but surprising no fevers. In summary he was found to have MRSA bacteremia. 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 He also had a UTI with an ESBL E. coli which was successfully treated with meropenem for 7 days. He is now admitted to swing bed status for ongoing vancomycin treatment of his MRSA. During his work-up an echocardiogram was performed and showed no vegetations. This was a transthoracic echocardiogram. He has known heart failure with preserved ejection fraction but no valvular vegetations were seen. He is not a surgical candidate because of his multiple comorbidities and morbid obesity and high risk for respiratory failure with any kind of sedation for surgical procedure. It is felt that his sacral wound is unlikely to completely heal the goal is to try to treat his MRSA bacteremia and treat the wound infection as best as we can with a wound vacuum and periodic debridements as needed. Patient is noncompliant with pressure relieving measures to allow the sacral decubitus to heal. He has been compliant with wearing his trilogy mask for his JESSICA. His first negative blood culture was on July 27, 2019 and therefore 4 weeks of therapy will be completed on August 24, 2019. He should complete a minimum of 4 weeks and up to 6 weeks of effective MRSA antibacterial treatment. He is currently on vancomycin the dosing which is being controlled and monitored by pharmacy. [facility] Medical History (Updated 08/11/19 @ 15:19 by Manuel Fisher) Acromegaly (Chronic) Acute on chronic kidney failure (Resolved) Adrenal insufficiency (Chronic) Ambulatory dysfunction (Chronic) Anemia (Chronic Unknown) Atrial flutter, paroxysmal (Chronic) Back pain (Chronic 06/21/13) CAD (coronary artery disease) (Chronic) Cardiopulmonary arrest with successful resuscitation (Resolved) Chronic anxiety (Chronic) Chronic bipolar disorder (Chronic) a. With history of psychosis. Chronic cholecystitis (Chronic) Chronic insomnia (Chronic) Chronic iron deficiency anemia (Acute) Chronic pain (Chronic) On both Methadone and Fentanyl as well as Ultram and Naproxen. CKD (chronic kidney disease) (Chronic) Decubitus ulcer of sacral region, stage 4 (Acute) Decubitus ulcer, stage 4 with infection (Chronic) Diabetes mellitus (Chronic) Diabetic gastroparesis (Acute) Diabetic ulcer of toe associated with diabetes mellitus due to underlying condition, with bone involvement without evidence of necrosis (Inactive) 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 (Resolved) DVT (deep venous thrombosis) (Chronic) Dg April 2019. Has IVC filter placed 04/2019 Dyslipidemia (Chronic) Endocarditis due to Staphylococcus (Resolved) Heart failure with preserved ejection fraction (Acute) Hemorrhagic cystitis (Chronic) Hep C w/o coma, chronic (Acute) History of DVT (deep vein thrombosis) (Chronic) Hyperkalemia (Resolved) Hypomagnesemia (Resolved) Hypothyroidism (Chronic) Hypoventilation associated with obesity syndrome (Chronic) Ileostomy in place (Acute) Impaired mobility and ADLs (Chronic) Inability to get out of bed (Chronic 06/21/13) Lactic acidosis (Resolved) MRSA bacteremia (Acute) Obesity (Chronic) a. Obesity though he has had significant weight loss since last seen. Obstructive sleep apnea (Chronic) Old non-ST elevation myocardial infarction (NSTEMI) (Acute) March 2019 Open wound of left lower extremity without complication (Acute) secondary to trauma and from anticoagulation 04/2019 Osteoarthritis of both knees (Chronic) Severe. a. [id number] bilateral knees. 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 2 diabetes mellitus (Resolved) Palliative care encounter (Chronic) DObbertin PEA (Pulseless electrical activity) (Acute) episode of bradycardic arrest/PEA. thought to be secondary to gram neg sepsis from acute sonny. 03/2019 Pedal edema (Chronic) Persistent vomiting in adult patient (Acute) Poor self care (Chronic 06/21/13) Poorly controlled type 2 diabetes mellitus with circulatory disorder (Chronic) Presence of IVC filter (Acute) Protein-calorie malnutrition, mild (Acute) Pulmonary hypertension (Chronic) Rheumatoid arthritis (Chronic) Sepsis (Resolved) Septic arthritis of elbow, right (Inactive) Toxic metabolic encephalopathy (Resolved) Ulcer of left lower leg (Chronic) Ulcerative colitis (Chronic) UTI (urinary tract infection) (Resolved) UTI (urinary tract infection) due to Enterococcus (Resolved) Surgical History Arthroplasty of knee (Resolved 03/18/12) irrigation and lavage right Fracture, Open Treatment (Resolved) 06/06/17-[facility] [place]/P ORIF RIGHT DISTAL HUMERUS FRACTURE History of insertion of T-tube into biliary tract (Chronic) S/P colectomy (Chronic) S/P proctocolectomy (Acute) Social History Smoking/Tobacco Use Status: Former Tobacco Use Alcohol Intake: former Drug use: Rarely Substance use type: marijuana Housing: senior care Do you feel safe at home: Yes Do you feel safe in your relationship?: Yes Additional Social history: Living at [facility] in [facility] Medications and Allergies Home Medications Medication Instructions Recorded Confirmed Type cyanocobalamin (vitamin B-12) 1,000 mcg PO DAILY 12/23/17 08/11/19 History ferrous sulfate 325 mg PO BID #0 tab 12/31/17 08/11/19 Rx magnesium chloride [Mag 64] 64 mg PO BID #0 tab 02/10/18 08/11/19 Rx terazosin 4 mg PO BID #0 cap 02/10/18 08/11/19 Rx Centrum Complete 1 tab PO DAILY 03/01/18 08/11/19 History ascorbic acid (vitamin C) [Vitamin 1 tab PO BID 03/01/18 08/11/19 History C] melatonin 6 mg PO HS #30 tab 06/19/18 08/11/19 Rx pantoprazole 40 mg PO DAILY #60 tab 06/19/18 08/11/19 Rx calcium carbonate-vitamin D3 1 tab PO BID 07/09/18 08/11/19 History [Calcium 500 + D] venlafaxine [Effexor XR] 112.5 mg PO DAILY 10/23/18 08/11/19 History acetaminophen [Tylenol] See Rx Instructions .ROUTE .COMPLEX 01/08/19 08/11/19 History gabapentin 300 mg PO TID 01/08/19 08/11/19 History Zyrtec 10 mg PO DAILY 02/23/19 08/11/19 History amlodipine 10 mg PO DAILY 02/26/19 08/11/19 History levothyroxine 12.5 mcg PO HS 02/26/19 08/11/19 History Lantus Solostar U-100 Insulin 50 unit SUBCUT DIRECTED 03/15/19 08/11/19 History insulin aspart U-100 10 unit SC AC #15 ml 03/19/19 08/11/19 Rx metoprolol tartrate 25 mg PO BID 05/01/19 08/11/19 History Eliquis 2.5 mg PO BID #60 tab 05/20/19 08/11/19 Rx clonidine HCl [Catapres] 0.1 mg PO TID #0 tab 05/20/19 08/11/19 Rx Combivent Respimat 1 puff INHALATION Q6H PRN 06/02/19 08/11/19 History Enrique 1 packet PO BID 06/02/19 08/11/19 History acidophilus-pectin, citrus 1 cap PO DAILY 06/02/19 08/11/19 History insulin lispro [Humalog KwikPen 0 unit SUBCUT AC 06/02/19 08/11/19 History Insulin] risperidone [Risperdal] 1.5 mg PO HS 06/02/19 08/11/19 History vitamin B complex 100 2-herbs 1 tab PO DAILY 06/02/19 08/11/19 History nystatin 0 g TOPICAL BID #0 g 06/04/19 08/11/19 Rx potassium bicarb-citric acid 20 meq PO DAILY #30 tab 06/04/19 08/11/19 Rx sodium bicarbonate 650 mg PO BID #90 tab 06/04/19 08/11/19 Rx CertaVite Senior-Antioxidant 1 tab PO QAM 06/07/19 08/11/19 History Duoneb 3 ml INHALATION PRN PRN 06/07/19 08/11/19 History furosemide [Lasix] 80 - 100 mg PO BID 06/07/19 08/11/19 History lorazepam [Ativan] 1 mg PO Q8H PRN 06/07/19 08/11/19 History cephalexin 500 mg PO BID 7 Days #14 tab 07/23/19 07/24/19 Rx prednisone See Rx Instructions .ROUTE .COMPLEX 07/24/19 08/11/19 History Allergies Allergy/AdvReac Type Severity Reaction Status Date / Time lisinopril Allergy Unverified 07/24/19 17:47 Exam Narrative Exam Narrative: Morbidly obese male lying in bed in the left lateral decubitus position for his dressing change Sacrum has a wound that is very deep and tunneled and wide and is oozing blood. No purulent drainage at this time. Because of heavy oozing of blood from the wound, Dr. Webb has recommended just packing the wound for now and resuming the wound vaccuum tomorr COVID-19 Screening In the past 14 days, have you traveled outside of [place] or [place]?: NO
--- NOTE | 2019-08-11 16:00 | CMSA_ITS ---
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 Brendan has a sister, Lian Hardy (P#[phone]) who lives in [facility] but they have limited contact. They do speak via phone every couple of weeks. he also has numerous nieces and nephews but states he rarely sees them. His sister is his only identified family support. Brendan enjoys reading and watching TV. - Prior to Admission Living Arrangements/Environment Prior to Admission:: Brendan is a retirement resident at the [facility] in [place] and requires assistance with all ADLs. - Amberg: No Amberg's Spouse: No - Benefits Financial: Medicare, Medicaid - Druze Active Spiritism Member:: No Will Spiritism Members or Marketing Budget Analyst Visit:: No - Advance Directives for Healthcare Advance Directives for Healthcare: Advance Directives Advance Directive Agent: Lian Hardy: Sister - Medical History PAST MEDICAL HISTORY/PAST SURGICAL HISTORY:: Heart failure with preserved EF, CHF, Anemia, Anxiety, Back Pain, Bipolar Disorder, CAD, Cardiopulmonary arrest with successful resuscitation, cholelithiasis, anxiety, insomnia, chronic pain, CKD, Crohn's Disease, DM type 2 with diabetic neuropathy, diabetic foot ulcer, dyslipidemia, heme positive stool, hemorrhagic cystitis, hypertension, hypoandrogenism, hypothyroidism, impaired mobility and ADLs, Obesity, Pedal edema, Osteoarthritis of both knees, poor self care, poorly controlled DM2 with circulatory disorder, RA, TKA, Fracture ORIF R distal humerus fracture. General Health:: Poor Other:: awating EES to start as prokinetic. pt would prob not tolerate propulsid- signif cardiac toxicity. pt cannot be on regulan ib/c of poor kidney funciton. if stomach does not respond- than would need to consider J tube feedings. his wound is prob not going to heal. It will be a matter if keeping him comfortable and avoiding further infection. Pt does not turn. He is long does high steroids. He is on blood thinners. He is bed bound/. A1c- 9.0. Pt has very poor cardiac reserve and would not tolerate a prolonged GETA. Pt is not a a candidate for a flap. Pt heart is so poor- he would not tolerate GB surgery. microvascular flaps is a much poor complicated anesthesia than a lap sonny. We are working on getting erythromycin to aid as a prokinetic. He cannot tolerate Reglan because of his cardiac irritability. - Admission Data Reason for Swing Bed Admission:: IV ABX, extended course. Discharge Plan:: Brendan will return to the [facility] once he has completed treatment. Assessment: Poor prognosis, continue IV ABX course, return to SNF. Signal Worker Helper: Radha Ramon Date Assessment was completed:: 08/11/19
--- NOTE | 2019-08-11 16:01 | CM.SWINGPC ---
- If Service Date Differs Date of service: 08/11/19 Time of Service: 15:48 Swingbed Plan of Care Plan of care: SWING BED PROGRAM ACTIVITIES/DISCHARGE PLAN OF CARE ACTIVITIES PLAN Date: 08/11/19 Identified Need: Life Enrichment during extended hospitalization. Intervention/Plan: Team meeting discussion around goals of care, treatment considerations, code status, as well as activity offerings (CART, etc) empowerment in self determination. Initials: [facility] DISCHARGE PLAN Date: 08/11/19 Identified Need: Wound care Intervention/Plan: IV ABX, wound care, SWB1 for monitoring and management. Initials: MARSHA
--- NOTE | 2019-08-11 16:57 | W.PM.PROGNOT ---
Date of Service Date of service: 08/11/19 Time of Service: 12:45 Assessment and Plan Assessment and plan (1) Heart failure with preserved ejection fraction: Status: Acute (2) Diabetic gastroparesis: Status: Acute Assessment and plan: awating EES to start as prokinetic. pt would prob not tolerate propulsid- signif cardiac toxicity. pt cannot be on regulan ib/c of poor kidney funciton. if stomach does not respond- than would need to consider J tube feedings. (3) Obstructive sleep apnea: Status: Chronic (4) Junctional (hamzah) bradycardia: Status: Acute (5) Ulcer of left lower leg: Status: Chronic Qualifiers: Non-pressure ulcer stage: limited to breakdown of skin Qualified Code(s): L97.921 - Non-pressure chronic ulcer of unspecified part of left lower leg limited to breakdown of skin (6) Hypoventilation associated with obesity syndrome: Status: Chronic (7) History of DVT (deep vein thrombosis): Status: Chronic (8) Chronic iron deficiency anemia: Status: Acute Assessment and plan: venofer and oral Fe (9) Old non-ST elevation myocardial infarction (NSTEMI): Status: Acute (10) Hep C w/o coma, chronic: Status: Acute (11) Protein-calorie malnutrition, mild: Status: Acute (12) Decubitus ulcer of sacral region, stage 4: Status: Acute Assessment and plan: -infection is resolved -wound shows minimal signs of healing. cont protein supplements adn wound AVC at this time. will follow. -vanco dosing per pharma -this wound is prob not going to heal. It will be a matter if keeping him comfortable and avoiding further infection. Pt does not turn. He is long does high steroids. He is on blood thinners. He is bed bound/. A1c- 9.0. Pt has very poor cardiac reserve and would not tolerate a prolonged GETA. Pt is not a a candidate for a flap. Pt heart is so poor- he would not tolerate GB surgery. microvascular flaps is a much poor complicated anesthesia than a lap sonny. (13) Cholelithiasis: Status: Chronic (14) Rheumatoid arthritis: Status: Chronic (15) Dyslipidemia: Status: Chronic (16) Chronic bipolar disorder: Status: Chronic (17) Poor self care: Status: Chronic (18) Inability to get out of bed: Status: Chronic (19) Obesity: Status: Chronic (20) Hypertension: Status: Chronic Qualifiers: Hypertension type: essential hypertension Qualified Code(s): I10 - Essential (primary) hypertension (21) CKD (chronic kidney disease): Status: Chronic Qualifiers: Chronic kidney disease stage: unspecified stage Qualified Code(s): N18.9 - Chronic kidney disease, unspecified (22) Poorly controlled type 2 diabetes mellitus with circulatory disorder: Status: Chronic Subjective Subjective Interval history since last seen: Patient is on appropriate diet and has had no nausea vomiting. We are working on getting erythromycin to aid as a prokinetic. He cannot tolerate Reglan because of his cardiac irritability. Patient does not get out of bed. Patient is back on his Eliquis Patient denies chest pain or shortness of breath. She did he denies productive cough. He denies pain or difficult swallowing. Exam Skin Other: Wound location Size: Width 6 cm Length 11 cm Depth 3 cm Undermining: yes Wound Base: granular:<5% Slough: 80% Surrounding Tissue: intact. maceration from the yeast has resolved Pain:minimal Signs of infection: resolved Abx: vanco. dosing per pharma Vascular status: pt is bed bound Protein status: 2.5. on supplements (improving). still anemic. hgb 8.0 Pressure offloading: wound vac. q 2 hr turning schedule Smoker: no Diabetes: A1c- 9.0 PLAN The wound is sharply debrided. Informed consent was obtained prior to beginning the procedure. The area was marked and doubled checked/ID'ed with the pt. (Pause for the CAUSE). The risks of lesion removal include but are not limited to: bleeding, infection, scarring, reoccurrence, and the need for removal of more tissue, and complications of anesthesia. The procedure was done under sterile conditions. Using a sharp curette, all nonviable tissue, eschar, slough, and fibrinous material was sharply excised/ removed. Pressure was held. No bleeding noted. Pt tolerated the procedure well without complications. Depth of debridement: bone. Wound care regimen: wound VAC. no signs of any healing. infection resolved. continue vac at this time.
--- NOTE | 2019-08-11 17:21 | NUR.NOTE ---
Nursing Note: At 1606 on 08/11/19, pt. was transferred from inpatient to swingbed status per MD order. RN will reassess as necessary.
[2019-08-11 17:50] VITALS: BP 150/79; PULSE 96; RESP 16; TEMP 36.4; O2SAT 97
[2019-08-11] MEDS: Insulin Aspart 300 UNITS/3 ML PEN SC ×3 (17:53→22:41)
[2019-08-11] MEDS: hydrALAZINE 25 MG TAB 50 MG PO ×2 (17:55→20:14)
[2019-08-11] MEDS: Normal Saline Flush 10 ML SYR IVP (17:55)
[2019-08-11] MEDS: Calcium 600mg/Vit D 200U TAB 1 TAB PO (17:55)
[2019-08-11] MEDS: Ferrous Sulfate 325 MG TAB PO (20:14)
[2019-08-11] MEDS: Terazosin 2 MG CAP 4 MG PO (20:14)
[2019-08-11] MEDS: Gabapentin 300 MG CAP PO (20:14)
[2019-08-11] MEDS: Lactobacillus Acidophilus CAP 1 CAP PO (20:14)
[2019-08-11] MEDS: Protein Nutritional Supplement 16 GM 1 OUNCE PACKET PO (20:14)
[2019-08-11] MEDS: Apixaban 5 MG TAB PO (20:14)
[2019-08-11] MEDS: Ascorbic Acid 500 MG TAB 250 MG PO (20:14)
[2019-08-11] MEDS: ACETAMINOPHEN 1,000 MG/100 ML BTL 400 MG IVPB (22:41)
[2019-08-11] MEDS: Insulin Glargine 300 UNITS/3 ML PEN 24 UNITS SC (22:42)
[2019-08-11] MEDS: Levothyroxine 25 MCG TAB 12.5 MCG PO (22:42)
[2019-08-11] MEDS: risperiDONE 0.5 MG TAB 1.5 MG PO (22:43)
[2019-08-11] MEDS: Melatonin 3 MG TAB PO (23:53)
[2019-08-12 02:16] VITALS: BP 163/74; PULSE 70; RESP 18; TEMP 36.6; O2SAT 99
[2019-08-12] MEDS: Calcium 600mg/Vit D 200U TAB 1 TAB PO ×2 (05:27→17:52)
[2019-08-12] MEDS: ACETAMINOPHEN 1,000 MG/100 ML BTL 400 MG IVPB ×3 (05:27→22:35)
[2019-08-12 05:57] LABS: Vancomycin, Trough 20.2 ug/mL (10.0-20.0)
[2019-08-12] MEDS: VANCOMYCIN 1,000 MG in Normal Saline 250 ML 166.667 MG IV (06:00)
[2019-08-12 07:42] VITALS: BP 148/84; PULSE 71; RESP 20; TEMP 36.5; O2SAT 97
[2019-08-12] MEDS: Insulin Aspart 300 UNITS/3 ML PEN SC ×7 (08:09→22:37)
[2019-08-12] MEDS: Lactobacillus Acidophilus CAP 1 CAP PO ×3 (08:12→20:09)
[2019-08-12] MEDS: Protein Nutritional Supplement 16 GM 1 OUNCE PACKET PO ×3 (08:12→20:09)
[2019-08-12] MEDS: Apixaban 5 MG TAB PO (08:12)
[2019-08-12] MEDS: hydrALAZINE 25 MG TAB 50 MG PO ×4 (08:12→20:08)
[2019-08-12] MEDS: predniSONE 20 MG TAB 40 MG PO (08:13)
[2019-08-12] MEDS: Terazosin 2 MG CAP 4 MG PO ×2 (08:13→20:08)
[2019-08-12] MEDS: Venlafaxine 37.5 MG CAPCR 112.5 MG PO (08:13)
[2019-08-12] MEDS: Pantoprazole 40 MG TABCR PO (08:13)
[2019-08-12] MEDS: Ascorbic Acid 500 MG TAB 250 MG PO ×2 (08:14→20:07)
[2019-08-12] MEDS: Ferrous Sulfate 325 MG TAB PO ×2 (08:14→20:09)
[2019-08-12] MEDS: amLODIPine 5 MG TAB 10 MG PO (08:14)
[2019-08-12] MEDS: Gabapentin 300 MG CAP PO ×3 (08:14→20:08)
--- NOTE | 2019-08-12 12:50 | W.DIABETESNO ---
Date of service: 08/12/19 Time of Service: 12:50 Diabetes Note NOTE: Diet changed to fiber restricted, diabetic, low fiber diet, soft bite sized due to poor dentition. Poorly controlled blood sugars >250 mg/dl last couple of days, continues with elevated BUN, Cre, WBC. Now dx with diabetic gastroparesis and recently resolved SBO. PO intake 100% of meals, supplemented with liquid protein 30 ml TID currently meeting 100% nutrient and protein needs however, wound not expected to heal with multiple co morbidities. Focus is to keep Brendan comfortable. Will continue to follow. Time Spent in Nutritional Counseling and Treatment: 10 min
[2019-08-12] MEDS: Normal Saline Flush 10 ML SYR IVP (14:15)
[2019-08-12 15:35] VITALS: BP 153/74; PULSE 81; RESP 19; TEMP 36.8; O2SAT 98
--- NOTE | 2019-08-12 16:00 | PT.INNT ---
Date of service: 08/12/19 PT Notes Visit Reasons: MRSA BACTEREMIA, SACRAL DECUBITUS ULCER STG 4, GAS Patient was currently with nurse and was not available at time of PT visit. Will plan on continuing with daily visit tomorrow as ordered.
[2019-08-12 20:14] VITALS: BP 166/72; PULSE 77; RESP 20; TEMP 37.1; O2SAT 99
[2019-08-12] MEDS: Levothyroxine 25 MCG TAB 12.5 MCG PO (22:35)
[2019-08-12] MEDS: risperiDONE 0.5 MG TAB 1.5 MG PO (22:35)
[2019-08-12] MEDS: Insulin Glargine 300 UNITS/3 ML PEN 24 UNITS SC (22:38)
[2019-08-12] MEDS: Melatonin 3 MG TAB PO (23:42)
[2019-08-13 05:38] VITALS: BP 166/91; PULSE 67; RESP 18; TEMP 36.2; O2SAT 99
[2019-08-13] MEDS: ACETAMINOPHEN 1,000 MG/100 ML BTL 400 MG IVPB ×3 (05:44→21:41)
[2019-08-13] MEDS: Calcium 600mg/Vit D 200U TAB 1 TAB PO ×2 (05:44→17:20)
[2019-08-13 07:30] VITALS: BP 176/81; PULSE 62; RESP 20; TEMP 36.4; O2SAT 98
[2019-08-13] MEDS: Protein Nutritional Supplement 16 GM 1 OUNCE PACKET PO ×3 (08:08→20:22)
[2019-08-13] MEDS: Normal Saline Flush 10 ML SYR IVP ×2 (08:08→21:42)
[2019-08-13] MEDS: Insulin Aspart 300 UNITS/3 ML PEN SC ×7 (08:09→21:42)
[2019-08-13] MEDS: hydrALAZINE 25 MG TAB 50 MG PO ×4 (08:09→20:22)
[2019-08-13] MEDS: predniSONE 20 MG TAB 40 MG PO (08:09)
[2019-08-13] MEDS: amLODIPine 5 MG TAB 10 MG PO (08:09)
[2019-08-13] MEDS: Ascorbic Acid 500 MG TAB 250 MG PO ×2 (08:09→20:23)
[2019-08-13] MEDS: Lactobacillus Acidophilus CAP 1 CAP PO ×3 (08:09→20:23)
[2019-08-13] MEDS: Gabapentin 300 MG CAP PO ×3 (08:10→20:23)
[2019-08-13] MEDS: Ferrous Sulfate 325 MG TAB PO ×2 (08:10→20:23)
[2019-08-13] MEDS: Pantoprazole 40 MG TABCR PO (08:10)
[2019-08-13] MEDS: Venlafaxine 37.5 MG CAPCR 112.5 MG PO (08:10)
[2019-08-13] MEDS: Terazosin 2 MG CAP 4 MG PO ×2 (08:10→20:23)
[2019-08-13] MEDS: VANCOMYCIN 1,000 MG in Normal Saline 250 ML 166.667 MG IV (10:30)
--- NOTE | 2019-08-13 11:31 | W.PM.PROGNOT ---
Date of Service Date of service: 08/12/19 Time of Service: 11:31 Assessment and Plan Assessment and plan (1) Diabetic gastroparesis: Status: Acute (2) Obstructive sleep apnea: Status: Chronic (3) Junctional (hamzah) bradycardia: Status: Acute (4) Heart failure with preserved ejection fraction: Status: Acute (5) Hypoventilation associated with obesity syndrome: Status: Chronic (6) Chronic iron deficiency anemia: Status: Acute (7) Old non-ST elevation myocardial infarction (NSTEMI): Status: Acute (8) Hep C w/o coma, chronic: Status: Acute (9) Decubitus ulcer, stage 4 with infection: Status: Chronic Assessment and plan: Patient had debridement on the wound on 07/31/2017 because he had a large amount of proteinaceous membrane on the wound. He has only about 5% granulation tissue on the wound. He did have quite a bit of bleeding after sharp debridement and we held the wound VAC on 617. On 618 he was still having significant bleeding and bleeding through his dressings. Pain continue to hold the wound VAC. I did discussed with the hospitalist. And we did hold his Eliquis for at least a week to see if we can get the bleeding stopped. He may need dose adjustment versus just stopping this medication. It is unclear if he started the erythromycin at this time. The pharmacy was having some difficulty obtaining a supply due to shortages. He has had no nausea vomiting per nursing. He is still on a full liquid diet. Patient very much wants to eat. He does eat very quickly which often results in distention, nausea, and pending. We have discussed with the patient about lifestyle modification. Patient has limited intellectual capabilities and limited understanding, and does not comply with lifestyle modifications. (10) Protein-calorie malnutrition, mild: Status: Acute Objective Objective Clinical Data: Vital Signs Temperature 36.4 C L 08/13/19 07:30 Temperature Source Tympanic 08/13/19 07:30 Pulse 62 08/13/19 07:30 Pulse Rhythm Regular 08/13/19 09:15 Respiratory Rate 20 08/13/19 07:30 Respiratory Effort Non-Labored 08/13/19 09:15 Respiratory Depth Normal 08/13/19 09:15 Respiratory Pattern Normal 08/12/19 23:40 Blood Pressure 176/81 H 08/13/19 07:30 Pulse Oximetry 98 08/13/19 07:30 Oxygen Delivery Method Room Air 08/13/19 07:30 Oxygen Flow Rate 0 08/13/19 07:30 Pain Level 3 08/13/19 07:30 Comment 08/11/19 17:50 Intake & Output 08/12/19 08/12/19 08/13/19 11:59 23:59 11:59 Intake Total 1060 / 2260 1200 / 2260 480 / 480 Output Total 2580 / 5255 2675 / 5255 2450 / 2450 Balance -1520 / -2995 -1475 / -2995 -1969 / -1969 Weight 113.1 kg 110.3 kg Intake: IV 100 / 400 300 / 400 Oral 960 / 1860 900 / 1860 480 / 480 Output: Urine 2180 / 4005 1825 / 4005 1550 / 1550 Stool 400 / 1250 850 / 1250 900 / 900 Other: Urine Color Yellow Pale Yellow Urine Appearance Clear Clear Clear Urine Odor None Normal None Stool Size Moderate Stool Characteristics Soft Liquid Green Voiding Methods Urinal Urinal Urinal Laboratory Results Vancomycin Trough 20.2 ug/mL (10.0-20.0) H* 08/12/19 05:20
--- NOTE | 2019-08-13 14:45 | PT.INTREAT ---
Date of service: 08/13/19 Time of Service: 14:45 PT Notes Visit Reasons: MRSA BACTEREMIA, SACRAL DECUBITUS ULCER STG 4, GAS Inpatient Physical Therapy Treatment Note [facility] Date: 08/13/19 PRECAUTIONS: Fall. Droplet precautions. Activity as tolerated. SUBJECTIVE: Brendan states that he feels okay today and is agreeable with PT session participation. OBJECTIVE: Wound vacuum discharged. Wound dressing to stage 4 sacral decubitus. PAIN: Reports pain in B knees with WB at 3/10. Low back area at 3/10. BED MOBILITY/TRANSFERS Supine-sit: SBA with HOB @ 30 degrees Sit-supine: SBA Sit-stand: Minimal assist of 2 Stand-sit: Minimal assist of 2 STATIC SITTING: Completed up to 10 minutes of edge of bed sitting with no report of pain STATIC STANDING: While at edge of bed, Brendan tolerated sit<>stand x 2 sustaining static standing up to 30-45 seconds x 2 reps while holding onto FWW with CGA of 2. THEREX: Patient completed LAQs x 10 in supine with PT stabilizing each thigh, supine [id number] x 10 on each side, and supine clam shell ex x 10. ASSESSMENT: Patient demonstrates slow increase in activity tolerance. He remains pleasant and agreeable to PT session. PLAN: Continue with PT's POC TREATMENT CODE/TIME: 82447 x 15 minutes, 62354 x 15 minutes beginning at 14:45 PM.
--- NOTE | 2019-08-13 14:56 | WOUNDCONS_ITS ---
- If Service Date Differs Date of service: 08/13/19 Time of Service: 14:00 Wound Initial Evaluation Narrative: This is a follow up to the wound consult that was performed last week. patient consented to have the wounds reviewed by this nurse - Wound Left Lateral Tib/Fib(lower leg) Wound Type: Statis Ulcer (diabetic) Wound General Appearance: Unapproximated Wound Bed Greatest Portion: Pale [place] Wound Bed Lesser Portion: Dusky Red Wound Surrounding Tissue Appearance: [place] Percent of Wound Bed Granulated/Red: 0 Percent of Wound Bed Slough/Yellow: 0 Wound Length: 11.7 cm Wound Width: 3.8 cm Wound Depth: 0.3 cm Wound Drainage Amount: None Wound Drainage Odor: None/Absent Wound Topical Solution/Irrigant: Saline Irrigant Wound Debridement Method: Mechanical Wound Debridement Result: Healthy Tissue Revealed Wound Debridement Amount of Tissue Removed: Minimal Left Foot Wound Type: Diabetic Ulcer Wound General Appearance: Clean/Dry Wound Bed Greatest Portion: Pale [place] Wound Bed Lesser Portion: Yellow (Slough) Wound Surrounding Tissue Appearance: Blanched/Dull Percent of Wound Bed Granulated/Red: 0 Percent of Wound Bed Slough/Yellow: 50 Percent of Wound Bed Eschar/Black: 0 Wound Length: 0.8 cm Wound Width: 0.8 cm Wound Depth: 0.3 cm Wound Drainage Amount: None Wound Drainage Odor: None/Absent Wound Drainage Description: No drainage Wound Topical Solution/Irrigant: Saline Irrigant Wound Debridement Method: Mechanical Wound Debridement Result: Yellow Sloughing Remains - Circulation, Sensation, Motion Edema Degree: 1+ Peripheral Pulse Strength: Normal Capillary Refill: Less than 3 seconds Sensation Description: Numbness, Tingling Skin Temperature: Warm Skin Color: Pale - Recomendation Recomendation:: Continue current treatment for another week
[2019-08-13 15:18] VITALS: BP 165/73; PULSE 92; RESP 24; TEMP 36.5; O2SAT 99
--- NOTE | 2019-08-13 16:27 | CMPROGNOTE_ITS ---
Care Management Progress Note Brendan was lying in bed, he reported wanting increased portions of healthy food and stated he prefers fish over chicken. CM discussed concerns around wound progress and possibility of wound not healing. Brendan appeared surprised and asked what the plan would be. CM listened to Brendan's concerns and offered team meeting coordination; which Brendan was very interested in. He stated he would like NurysRomy ZEPEDA, Dr. Canela, Dr. Horowitz and Betsey FIORE at the meeting. Dr. Webb also expressed interest in attending. Nutrition's also stated that Brendan could have food options per his choices if he decided to go [employer]. Dr. Horowitz reported she could meet at 1700 on Friday, CM requested a time during the day for Roland and Dr. Canela to participate. Dr. Horowitz reported she would call back with a time for either Friday or Friday when she could call in.
[2019-08-13] MEDS: Apixaban 2.5 MG TAB PO (20:23)
[2019-08-13] MEDS: oxyCODONE 5 MG TAB PO (20:27)
[2019-08-13] MEDS: Levothyroxine 25 MCG TAB 12.5 MCG PO (21:40)
[2019-08-13] MEDS: risperiDONE 0.5 MG TAB 1.5 MG PO (21:40)
[2019-08-13] MEDS: Normal Saline 500 ML 100 ML IV (21:41)
[2019-08-13] MEDS: Insulin Glargine 300 UNITS/3 ML PEN 24 UNITS SC (21:44)
[2019-08-13 23:20] VITALS: BP 159/76; PULSE 77; RESP 19; TEMP 37.1; O2SAT 99
[2019-08-14] MEDS: ACETAMINOPHEN 1,000 MG/100 ML BTL 400 MG IVPB ×2 (05:38→21:56)
[2019-08-14] MEDS: Calcium 600mg/Vit D 200U TAB 1 TAB PO ×2 (05:38→17:57)
[2019-08-14 07:25] VITALS: BP 164/82; PULSE 68; RESP 18; TEMP 36.1; O2SAT 100
[2019-08-14] MEDS: Insulin Aspart 300 UNITS/3 ML PEN SC ×7 (09:05→21:54)
[2019-08-14] MEDS: Protein Nutritional Supplement 16 GM 1 OUNCE PACKET PO ×3 (09:05→20:24)
[2019-08-14] MEDS: Ferrous Sulfate 325 MG TAB PO ×2 (09:06→20:25)
[2019-08-14] MEDS: Lactobacillus Acidophilus CAP 1 CAP PO ×3 (09:06→20:25)
[2019-08-14] MEDS: hydrALAZINE 25 MG TAB 50 MG PO ×4 (09:06→20:25)
[2019-08-14] MEDS: Terazosin 2 MG CAP 4 MG PO ×2 (09:06→20:25)
[2019-08-14] MEDS: predniSONE 20 MG TAB 40 MG PO (09:07)
[2019-08-14] MEDS: Pantoprazole 40 MG TABCR PO (09:07)
[2019-08-14] MEDS: Apixaban 2.5 MG TAB PO ×2 (09:07→20:26)
[2019-08-14] MEDS: Ascorbic Acid 500 MG TAB 250 MG PO ×2 (09:07→20:25)
[2019-08-14] MEDS: Gabapentin 300 MG CAP PO ×3 (09:07→20:25)
[2019-08-14] MEDS: oxyCODONE 5 MG TAB PO ×2 (09:07→21:52)
[2019-08-14] MEDS: Venlafaxine 37.5 MG CAPCR 112.5 MG PO (09:07)
[2019-08-14] MEDS: amLODIPine 5 MG TAB 10 MG PO (09:08)
--- NOTE | 2019-08-14 10:49 | PT.INTREAT ---
Date of service: 08/14/19 Time of Service: 10:49 PT Notes Visit Reasons: MRSA BACTEREMIA, SACRAL DECUBITUS ULCER STG 4, GAS Inpatient Physical Therapy Treatment Note [facility] Date: 08/14/19 PRECAUTIONS: Fall. Droplet precautions. Activity as tolerated. SUBJECTIVE: Brendan is only agreeable to doing strengthening exercises at bed level. Did not want to do any standing exercises due to 7-8/10 in B knees. OBJECTIVE: Wound dressing to stage 4 sacral decubitus seen. PAIN: Reports pain in B knees at 7-8/10. Low back area at 5-6/10. THEREX: Patient completed LAQs x 10 in supine with PT stabilizing each thigh using 2 lb AW, supine [id number] x 10 on each side using 2 lb ankle weights, and supine clam shell ex x 10 using orange TB. ASSESSMENT: Patient demonstrates slow increase in activity tolerance. He remains pleasant and agreeable to PT sessions. PLAN: Continue with PT's POC TREATMENT CODE/TIME: 87770 x 16 minutes beginning at 10:49 AM.
--- NOTE | 2019-08-14 11:27 | PHA.REVIEW ---
Pharmacy Admission Review - Admission Clinical Review (Last Updated 08/11/19 @ 15:19 by Manuel Fisher) Heart failure with preserved ejection fraction (Acute) Diabetic gastroparesis (Acute) Junctional (hamzah) bradycardia (Acute) MRSA bacteremia (Acute) Chronic iron deficiency anemia (Acute) Old non-ST elevation myocardial infarction (NSTEMI) (Acute) Hep C w/o coma, chronic (Acute) Protein-calorie malnutrition, mild (Acute) Decubitus ulcer of sacral region, stage 4 (Acute) Advanced care planning/counseling discussion (Acute) Discharge planning issues (Acute) lisinopril Allergy (Unverified 07/24/19 17:47) Height 6 ft 1 in Weight 109.5 kg - Renal Dosing Medications needing adjustments: Reviewed (CRCL ~56ML/MIN) - Anticoagulation DVT Prohphylaxis: Reviewed Medications: Apixaban Therapeutic Anticoagulation: Reviewed Medications: Apixaban - DM Control DM Control: Finger Stick Blood Glucose 232 Finger Stick Blood Glucose 232 Finger Stick Blood Glucose 232 Insulin Dosing: Reviewed - BP Control BP Control: Blood Pressure 164/82 - IV to PO Switch IV Medications: Reviewed (IV VANCOMYCIN through 08/23/19,) - Comments Comments/Follow Ups: apixaban held for 48 hours due to oozing of blood from wound. erythromycin started to promote gi motility
[2019-08-14] MEDS: VANCOMYCIN 1,000 MG in Normal Saline 250 ML 166.667 MG IV (14:06)
--- NOTE | 2019-08-14 14:30 | W.PM.PROGNOT ---
Date of Service Date of service: 08/14/19 Time of Service: 14:30 Assessment and Plan Assessment and plan (1) Diabetic gastroparesis: Status: Acute (2) Decubitus ulcer of sacral region, stage 4: Status: Acute Assessment and plan: I did review old ones wound today. Is essentially unchanged from when I last saw on Friday, August 10. It measures 12 x 7 x 3 cm today. Is clean. There is no active bleeding today. The wound VAC is been off and they have been doing wet-to-dry. There is minimal to no granulation tissue.. There is no signs of any infection and it appears to be clean and healthy. But there is been no interval healing, with no interval change. The wound is the same size. Okay to resume wound VAC at this point. We have been doing wet-to-dry is because patient had a lot of bleeding after debridement on Friday. He is on Eliquis 2.5 mg twice daily at this point. continue with nutritional support. continue with wound care. Continue with active turning and monitoring. The wound VAC is nice because it keeps the wound clean. He does not have a rectum. He did urinate into the wound today. And that is why the dressing is being changed at this point. It is safe to resume the wound VAC. No active bleeding care conference on Friday. will follow. Subjective Subjective Interval history since last seen: Per nursing patient has been tolerating his diet and has not been throwing up. Patient wants to eat more. No abdominal pain or signs of obstruction. No fevers. No chest pain. No cough Exam Skin Other: Wound location Size: Width 7cm Length 12 cm Depth 3cm Undermining: + Wound Base: granular:none apparent today Slough: minimal today Surrounding Tissue: mild maceration and redness. possible yeast returning Pain:minimal Signs of infection: resolved Abx: D# vanco. no signs of infection at this point. Vascular status: poor Protein status: labs 08/15 Pressure offloading: trying to change position every 2 hrs Smoker: no Diabetes: blood sugars running around 250/ Objective Objective Clinical Data: Vital Signs Temperature 36.1 C L 08/14/19 07:25 Temperature Source Tympanic 08/14/19 07:25 Pulse 68 08/14/19 07:25 Pulse Rhythm Regular 08/14/19 08:35 Respiratory Rate 18 08/14/19 07:25 Respiratory Effort Non-Labored 08/14/19 08:35 Respiratory Depth Normal 08/14/19 08:35 Respiratory Pattern Normal 08/14/19 08:35 Blood Pressure 164/82 H 08/14/19 07:25 Pulse Oximetry 100 08/14/19 07:25 Oxygen Delivery Method Bi-pap 08/14/19 07:25 Oxygen Flow Rate 0 08/14/19 07:25 Pain Level 3 08/14/19 09:07 Comment 08/13/19 23:20 Intake & Output 08/13/19 08/14/19 08/14/19 23:59 11:59 23:59 Intake Total 1429 930 / 930 Output Total 2470 / 4920 2325 / 2600 275 / 2600 Balance -1040 / -2910 -1395 / -1670 -275 / -1670 Weight 109.5 kg Intake: IV 450 / 550 60 / 60 Oral 980 / 1460 870 / 870 Output: Urine 1890 / 3440 1550 / 1825 275 / 1825 Stool 580 / 1480 775 / 775 Other: Urine Color Pale Yellow Pale Yellow Urine Appearance Clear Clear Clear Urine Odor Normal None Voiding Methods Urinal Urinal Urinal Laboratory Results Vancomycin Trough 20.2 ug/mL (10.0-20.0) H* 08/12/19 05:20
[2019-08-14 15:35] VITALS: BP 164/76; PULSE 80; RESP 19; TEMP 36.2; O2SAT 98
[2019-08-14 19:25] VITALS: BP 166/77; PULSE 84; RESP 18; TEMP 37.1; O2SAT 98
[2019-08-14] MEDS: Levothyroxine 25 MCG TAB 12.5 MCG PO (21:51)
[2019-08-14] MEDS: risperiDONE 0.5 MG TAB 1.5 MG PO (21:52)
[2019-08-14] MEDS: Insulin Glargine 300 UNITS/3 ML PEN 24 UNITS SC (21:53)
[2019-08-14] MEDS: Normal Saline Flush 10 ML SYR IVP (21:59)
[2019-08-14] MEDS: Melatonin 3 MG TAB PO (23:48)
[2019-08-15 04:30] VITALS: BP 155/76; PULSE 63; RESP 17; TEMP 36.2; O2SAT 98
[2019-08-15] MEDS: Normal Saline Flush 10 ML SYR IVP ×2 (06:11→09:06)
[2019-08-15] MEDS: ACETAMINOPHEN 1,000 MG/100 ML BTL 400 MG IVPB (06:11)
[2019-08-15] MEDS: Calcium 600mg/Vit D 200U TAB 1 TAB PO ×2 (06:11→17:58)
[2019-08-15 07:01] LABS: Anion Gap 9.7 mmol/L (3-11); BUN 66 mg/dL (7-18); CO2 20.3 mmol/L (21.0-32.0); CREATININE 1.89 mg/dL (0.70-1.30); Calcium 9.1 mg/dL (8.5-10.1); Chloride 106 mmol/L (98-107); Estimated GFR 36.56 (mL/min/1.73m2); Glucose 191 mg/dL (74-106); Magnesium 1.8 mg/dL (1.8-2.4); Potassium 4.7 mmol/L (3.5-5.1); Sodium 136 mmol/L (136-145)
[2019-08-15 07:30] VITALS: BP 174/83; PULSE 61; RESP 18; TEMP 35.8; O2SAT 99
[2019-08-15] MEDS: Insulin Aspart 300 UNITS/3 ML PEN SC ×7 (09:05→22:13)
[2019-08-15] MEDS: Protein Nutritional Supplement 16 GM 1 OUNCE PACKET PO ×3 (09:07→20:26)
[2019-08-15] MEDS: Venlafaxine 37.5 MG CAPCR 112.5 MG PO (09:07)
[2019-08-15] MEDS: amLODIPine 5 MG TAB 10 MG PO (09:07)
[2019-08-15] MEDS: Ascorbic Acid 500 MG TAB 250 MG PO ×2 (09:07→20:25)
[2019-08-15] MEDS: Ferrous Sulfate 325 MG TAB PO ×2 (09:07→20:25)
[2019-08-15] MEDS: Terazosin 2 MG CAP 4 MG PO ×2 (09:07→20:24)
[2019-08-15] MEDS: oxyCODONE 5 MG TAB PO (09:08)
[2019-08-15] MEDS: Apixaban 2.5 MG TAB PO ×2 (09:08→20:25)
[2019-08-15] MEDS: predniSONE 20 MG TAB 40 MG PO (09:08)
[2019-08-15] MEDS: Lactobacillus Acidophilus CAP 1 CAP PO ×3 (09:08→20:25)
[2019-08-15] MEDS: Gabapentin 300 MG CAP PO ×3 (09:08→20:25)
[2019-08-15] MEDS: hydrALAZINE 25 MG TAB 50 MG PO ×4 (09:08→20:25)
[2019-08-15] MEDS: Pantoprazole 40 MG TABCR PO (09:10)
--- NOTE | 2019-08-15 15:18 | PT.INTREAT ---
Date of service: 08/15/19 Time of Service: 15:18 PT Notes Visit Reasons: MRSA BACTEREMIA, SACRAL DECUBITUS ULCER STG 4, GAS Inpatient Physical Therapy Treatment Note [facility] Date: 08/15/19 PRECAUTIONS: Fall. Droplet precautions. Activity as tolerated. SUBJECTIVE: Again, Brendan is only agreeable to doing strengthening exercises at bed level. Did not want to do any standing exercises due to 7-8/10 in B knees. He reports he needed to stand up early today as they needed to weigh him. It is not the standing that hurts, it is the descent down as his knees bend that can be excruciating especially if he is not sitting all the way back in bed. OBJECTIVE: Wound dressing to stage 4 sacral decubitus seen. PAIN: Reports pain in B knees at 7-8/10. Low back area at 5-6/10. THEREX: Patient completed LAQs x 10 in supine with PT stabilizing each thigh using 2 lb AW, supine [id number] x 10 on each side using 2 lb ankle weights, supine hip abduction using 2 lb ankle weights x 10, bridginf exercises x 10 with PT stabilizing feet to prevent them from sliding down, and supine clam shell ex x 10 using orange TB. ASSESSMENT: Patient demonstrates slow increase in activity tolerance. Pain in B knees limiting mobility ADL progression. Patient hopes to be able to transfer onto a chair eventually with little help from somebody else. Will look at options for recliner chair cushions to offload sacral decubitus for when patient gets to do sitting on recliner. PLAN: Continue with PT's POC TREATMENT CODE/TIME: 23758 x 16 minutes beginning at 10:49 AM.
[2019-08-15 15:40] VITALS: BP 176/89; PULSE 57; RESP 19; TEMP 36.5; O2SAT 99
[2019-08-15] MEDS: VANCOMYCIN 1,000 MG in Normal Saline 250 ML 166.667 MG IV (17:58)
[2019-08-15] MEDS: risperiDONE 0.5 MG TAB 1.5 MG PO (22:11)
[2019-08-15] MEDS: Insulin Glargine 300 UNITS/3 ML PEN 24 UNITS SC (22:12)
[2019-08-15] MEDS: Levothyroxine 25 MCG TAB 12.5 MCG PO (22:12)
[2019-08-15 22:18] VITALS: BP 168/76; PULSE 83; RESP 18; TEMP 37; O2SAT 97
[2019-08-15] MEDS: Melatonin 3 MG TAB PO (23:54)
[2019-08-16] MEDS: Calcium 600mg/Vit D 200U TAB 1 TAB PO ×2 (06:17→17:47)
[2019-08-16 06:56] LABS: Abs Immature Grans 0.24 k/cumm (0.0-0.09); Absolute Basophil Count 0.01 k/cumm (0.0-0.2); Absolute Eosinophil Count 0.06 k/cumm (0.0-0.7); Absolute Lymphocyte Count 0.83 k/cumm (1.2-3.4); Absolute Monocyte Count 0.38 k/cumm (0.11-0.7); Absolute Neutrophil Count 5.18 k/cumm (1.2-6.7); Basophils % 0.1; Eosinophils % 0.9; HCT 27.6 % (40.0-50.0); HGB 8.4 g/dL (13.5-17.5); Immature Grans % 3.6 %; Lymphocytes % 12.4; Mean Corp. HGB Concentration 30.4 g/dL (32.0-36.0); Mean Corpuscular Hemoglobin 23.8 pg (27.0-33.0); Mean Corpuscular Volume 78.2 fL (80-95); Mean Platelet Volume 9.7 fL (8.0-11.0); Monocytes % 5.7; Neutrophils % 77.3; Platelet Count 226 x1000/uL (130-400); RBC 3.53 m/cumm (4.50-6.00)
[2019-08-16 07:17] LABS: Albumin 2.8 g/dL (3.4-5.0); Iron 30 ug/dL (65-175); Total Iron Binding Capacity 249 ug/dL (250-450); Transferrin Sat 12 % (20-55)
[2019-08-16 07:45] LABS: Anisocytosis 2+; Diff Comment RBC Morph Reviewed; Hypochromasia 3+; Microcytosis 3+; Ovalocytes 2+; Polychromasia Present
[2019-08-16 07:46] LABS: Poikilocytes 2+
[2019-08-16] MEDS: Ascorbic Acid 500 MG TAB 250 MG PO ×2 (08:53→20:32)
[2019-08-16] MEDS: Terazosin 2 MG CAP 4 MG PO ×2 (08:55→20:33)
[2019-08-16] MEDS: predniSONE 20 MG TAB 40 MG PO (08:55)
[2019-08-16] MEDS: Gabapentin 300 MG CAP PO ×3 (08:56→20:31)
[2019-08-16] MEDS: amLODIPine 5 MG TAB 10 MG PO (08:57)
[2019-08-16] MEDS: Venlafaxine 37.5 MG CAPCR 112.5 MG PO (08:57)
[2019-08-16] MEDS: Pantoprazole 40 MG TABCR PO (08:58)
[2019-08-16] MEDS: Ferrous Sulfate 325 MG TAB PO ×2 (08:58→20:31)
[2019-08-16] MEDS: Lactobacillus Acidophilus CAP 1 CAP PO ×3 (08:58→20:31)
[2019-08-16] MEDS: Protein Nutritional Supplement 16 GM 1 OUNCE PACKET PO ×3 (08:59→20:31)
[2019-08-16] MEDS: Apixaban 2.5 MG TAB PO ×2 (08:59→20:31)
[2019-08-16] MEDS: hydrALAZINE 25 MG TAB 50 MG PO ×4 (08:59→20:32)
[2019-08-16] MEDS: Insulin Aspart 300 UNITS/3 ML PEN SC ×7 (09:01→22:07)
[2019-08-16 09:19] VITALS: BP 160/88; PULSE 75; RESP 17; TEMP 36.5; O2SAT 99
--- NOTE | 2019-08-16 09:43 | OT.INIE ---
Occupational Therapy Notes Inpatient Occupational Therapy Evaluation Date: 08/16/19 Referring Doctor: Priscila Canela MD OT Orders: Non-urgent: Limited Ability Precautions: Fall, Standard PATIENT PROFILE/ADMITTING DIAGNOSIS: Pt is a 59 year old male who presented to the ER from the [facility] for MRSA bacteremia and stage IV sacral decubitus status post debridement on 07/25/2019 and 07/26/2019. Past Medical History: Acromegaly (Chronic) Acute on chronic kidney failure (Resolved) Adrenal insufficiency (Chronic) Ambulatory dysfunction (Chronic) Anemia (Chronic) Atrial flutter, paroxysmal (Chronic) Back pain (Chronic 06/21/13) CAD (coronary artery disease) (Chronic) Cardiopulmonary arrest with successful resuscitation (Resolved) Cholelithiasis (Chronic) Chronic anxiety (Chronic) Chronic bipolar disorder (Chronic) a. With history of psychosis. Chronic cholecystitis (Chronic) Chronic insomnia (Chronic) Chronic pain (Chronic) On both Methadone and Fentanyl as well as Ultram and Naproxen. CKD (chronic kidney disease) (Chronic) Complicated UTI (urinary tract infection) (Resolved) Diabetes mellitus (Chronic) Diabetic foot ulcer (Chronic) Diabetic ulcer of toe associated with diabetes mellitus due to underlying condition, with bone involvement without evidence of necrosis (Inactive) 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 (Resolved) Dyslipidemia (Chronic) Elevated troponin I level (Resolved) Endocarditis due to Staphylococcus (Resolved) Heme positive stool (Resolved) Hemorrhagic cystitis (Chronic) Hyperkalemia (Acute) Hypertension (Chronic) Hypomagnesemia (Chronic) Hypothyroidism (Chronic) Impaired mobility and ADLs (Chronic) Inability to get out of bed (Chronic 06/21/13) Lactic acidosis (Resolved) MRSA bacteremia (Resolved) Obesity (Chronic) a. Obesity though he has had significant weight loss since last seen. Osteoarthritis of both knees (Chronic) Severe. a. [id number] bilateral knees. 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 2 diabetes mellitus (Resolved) Palliative care encounter (Chronic) DObbertin Pedal edema (Chronic) Poor self care (Chronic 06/21/13) Poorly controlled type 2 diabetes mellitus with circulatory disorder (Chronic) Presence of IVC filter (Acute) Pulmonary hypertension (Chronic) Rheumatoid arthritis (Chronic) Sepsis (Resolved) Septic arthritis of elbow, right (Inactive) Toxic metabolic encephalopathy (Resolved) Toxic metabolic encephalopathy (Resolved) Ulcerative colitis (Chronic) UTI (urinary tract infection) (Resolved) UTI (urinary tract infection) due to Enterococcus (Resolved) Surgical History Arthroplasty of knee (Resolved 03/18/12) irrigation and lavage right Fracture, Open Treatment (Resolved) [place] [place] RIGHT DISTAL HUMERUS FRACTURE History of insertion of T-tube into biliary tract (Chronic) S/P colectomy (Chronic) Current Functional Limitations: Decreased functional activity tolerance, decreased (I) in ADLs, decreased (B) UE ROM, increased pain in (R) UE decreasing gross and fine motor coordination during ADLs. Social History/Home Situation: Pt resides at [facility]. Pt is well known to OT. He had surgery on his (R) UE to remove a metal plate in his (R) elbow last year, and is still recovering with AROM for his (R). He notes that he is receiving PT/OT since last admission at the [facility] and notes that he requires (A) with bathing, dressing due to his weakness. Equipment owned/DME: [facility] which he uses for ambulation, he is a resident of SNF so all other DME are met through the facility. SUBJECTIVE: Pt was lyin in bed when OT arrives. He states that he feels ok, but not himself. He is discouraged with his mobility and feels that he has significantly declined. OBJECTIVE: General Observation: Remarkable edema (R) UE, pt is weak and tired. He is able to perform minimal AROM of (B) UE and decreased mobility of (B) LE. Mental Status: A&Ox3 ROM: RUE Shoulder flexion ~65*, elbow flexion to 80*, decreased hand/digit ROM L UE Shoulder flexion ~50*, elbow flexion to 80* remarkable edema noted. STRENGTH: RUE shoulder flexion 2+/5, bicep 2/5, tricep 2/5, workers' compensation magistrate is weak and symmetrical LUE modified testing shoulder/elbow pt is 2/5 throughout workers' compensation magistrate is weak and symmetrical BALANCE: Static sitting Normal Dynamic Sitting Fair-Good Static Standing Poor Dynamic Standing Poor SPECIAL TESTS: Daily Activity Limitations Standardized Measure [facility] AM -PAC ?6 clicks? Daily Activity Inpatient Short Form: Raw Score 16 INFORMED CONSENT/EDUCATION: Pt instructed in purpose of OT Consult and plan of care. ASSESSMENT: Patient is a 59-year-old male referred to occupational therapy services for MRSA bacteremia and stage IV sacral decubitus status post debridement on 07/25/2019 and 07/26/2019. Patient presents with clinical signs and symptoms consistent with this dx and deconditioning, as demonstrated by the following impairment level findings: Decreased (B) UE ROM, Decreased (B) UE strengthening, decreased functional activity tolerance, decreased (I) in ADLs, Limited gross and fine motor control of (L) UE, pain in (B) LE, decreased functional mobility required for performance of ADLs, Wound on (L) LE. (R) UE is swollen with minimal AROM. Impairments are contributing to the following functional limitations: decreased functional mobility, decreased gross and fine motor control of (B) UE, decreased functional activity tolerance. OT recommends that pt return to [facility] when medically cleared per MD. AMPAC score 16 Patient is assessed as a Moderate 25220 complexity based on the following: History: See Above Examination: See Above Presentation: Evolving Decision Making: AMPAC score 16 GOALS Bathing- Sitting on side of bed pt will be able to wash his face and thighs with min (A) Eating- pt will be able to (I) bring food to mouth Dressing- pt will require mod (A) to [facility] PLAN OF CARE/TREATMENT PLAN: 1x/day, 5 days/ week x 1week Initiate Occupational Therapy Services for bathing, dressing, grooming, toileting, eating, transfer training. DISCHARGE RECOMMENDATIONS Return to [facility] when medically cleared per MD. Eating Routine- OT recommends built up handles for utensils with red foam as pt has decreased gross and fine motor control of (B) UE and digits. TREATMENT TIME/MINUTES/CODES 58509, 10 minutes (08:05) DAVID Hi/[facility]
--- NOTE | 2019-08-16 10:13 | PT.INNT ---
Date of service: 08/16/19 Time of Service: 10:13 PT Notes Visit Reasons: MRSA BACTEREMIA, SACRAL DECUBITUS ULCER STG 4, GAS Patient not available for PT session at this time. Will attempt visit this afternoon to continue with skilling as ordered.
--- NOTE | 2019-08-16 16:50 | PDOC.CMPRO ---
- If Service Date Differs Date of service: 08/16/19 Time of Service: 16:50 Care Management Progress Note S/O: Brendan was sitting up in bed when CM met with him. He was smiling as usual and was friendly and open. He stated that he is feeling pretty good and only has a little pain on his bottom. Brendan also discussed the team meeting that is planned for this week. It is tentatively scheduled for noon tomorrow. Drs. Horowitz and Rola will participate as well as Marie the woodworking machine offbearer, KATELYN and Josselin, the [facility] talent manager. He shared that he is looking forward to the meeting and hopes to get some answers. P:Brendan will likely return to the [facility] when medically cleared. CM will continue to support Brendan and his discharge planning needs.
--- NOTE | 2019-08-16 18:39 | NUR.NOTE ---
Nursing Note: I have reviewed and agree with the charting of Whitley Riddle
[2019-08-16 20:00] VITALS: BP 170/76; PULSE 73; RESP 20; TEMP 37; O2SAT 97
[2019-08-16] MEDS: Levothyroxine 25 MCG TAB 12.5 MCG PO (22:05)
[2019-08-16] MEDS: risperiDONE 0.5 MG TAB 1.5 MG PO (22:05)
[2019-08-16] MEDS: Insulin Glargine 300 UNITS/3 ML PEN 24 UNITS SC (22:06)
[2019-08-16 22:18] LABS: CREATININE 1.85 mg/dL (0.70-1.30); Estimated GFR 37.48 (mL/min/1.73m2)
[2019-08-16 22:24] LABS: Vancomycin, Trough 18.5 ug/mL (10.0-20.0)
[2019-08-16] MEDS: VANCOMYCIN 1,000 MG in Normal Saline 250 ML 166.667 MG IV (23:24)
[2019-08-16] MEDS: Normal Saline Flush 10 ML SYR IVP (23:25)
[2019-08-16] MEDS: Melatonin 3 MG TAB PO (23:25)
[2019-08-17] MEDS: Calcium 600mg/Vit D 200U TAB 1 TAB PO ×2 (06:23→18:13)
[2019-08-17 07:45] VITALS: BP 164/89; PULSE 66; RESP 18; TEMP 36.5; O2SAT 100
--- NOTE | 2019-08-17 08:00 | PT.INTREAT ---
Date of service: 08/17/19 PT Notes Visit Reasons: MRSA BACTEREMIA, SACRAL DECUBITUS ULCER STG 4, NIKA Brendan was in a team meeting after two attempts at seeing him. Will plan to see patient tomorrow as scheduled.
--- NOTE | 2019-08-17 09:10 | OT.INTREAT ---
Date of service: 08/17/19 Time of Service: 07:55 Occupational Therapy Notes Occupational Therapy Inpatient Treatment Note Date: 08/17/19 PRECAUTIONS: Fall, Standard, FULL SUBJECTIVE: Pt states that he is not sure how he feels today but does state that he feels that his ROM of his (B) UE/LE is declining. He would like to be able to use his (B) UE like he could at last admission to [facility] . OBJECTIVE: PAIN:no c/o pain BATHING: Sitting in bed with max (A) set up Upper Body: Min (A) washing face, he is able to perform lower half of his face but he does not have the AROM required for the upper part. He was also able to wash neck with min (A) and min vc throughout. OT passively perform shoulder flexion and abduction to pts (B) UE which he tolerated well with no pain behaviors noted. OT will work with pt to perform UE ROM to facilitate increased functional (I) of pts (B) UE and attempt to achieve pts baseline level of function. ASSESSMENT/PLAN: Progression of pts UE ROM with PROM/AROM exercises, gentle strengthening and facilitation of (B) hand use for ADL/IADL routines. TREATMENT CODES/TIME: 09637, 20 minutes (07:55) Suzanne Javier OTR/[facility]
[2019-08-17] MEDS: predniSONE 20 MG TAB 40 MG PO (09:11)
[2019-08-17] MEDS: Terazosin 2 MG CAP 4 MG PO ×2 (09:11→20:57)
[2019-08-17] MEDS: Ferrous Sulfate 325 MG TAB PO ×2 (09:11→20:57)
[2019-08-17] MEDS: Pantoprazole 40 MG TABCR PO (09:11)
[2019-08-17] MEDS: amLODIPine 5 MG TAB 10 MG PO (09:11)
[2019-08-17] MEDS: Apixaban 2.5 MG TAB PO ×2 (09:11→20:57)
[2019-08-17] MEDS: Ascorbic Acid 500 MG TAB 250 MG PO ×2 (09:11→20:57)
[2019-08-17] MEDS: hydrALAZINE 25 MG TAB 50 MG PO ×4 (09:11→20:57)
[2019-08-17] MEDS: Gabapentin 300 MG CAP PO ×3 (09:12→20:57)
[2019-08-17] MEDS: Insulin Aspart 300 UNITS/3 ML PEN SC ×7 (09:12→21:55)
[2019-08-17] MEDS: Lactobacillus Acidophilus CAP 1 CAP PO ×3 (09:12→20:58)
[2019-08-17] MEDS: Protein Nutritional Supplement 16 GM 1 OUNCE PACKET PO ×3 (09:12→20:57)
[2019-08-17] MEDS: Venlafaxine 37.5 MG CAPCR 112.5 MG PO (09:12)
--- NOTE | 2019-08-17 13:07 | W.PALLCONSUL ---
Date of service: 08/17/19 Time of Service: 13:07 History of Present Illness Narrative: I am meeting with all [address] Canela, nutritional list, care management, the critical power install technician, his nurse, and the wound care nurse. Purpose of the meeting is to help all 1 to better understand where he is at this time regarding his health. We each talked about his health specifically how he requires help even to move from his back to his side, usually a 2 person assist. He has stood for seconds with people by his side during this hospitalization. He requires help with toileting due to his inability to change his bag and use the urinal. We also spoke at length about his sacral wound which has had excellent care and a wound VAC for 4 weeks. Unfortunately it is not improved. Surgery has stated that he is not a candidate for a skin graft due to his overall poor condition. Despite all of the above including diabetes, adrenal insufficiency, renal failure, sleep apnea, severe rheumatoid arthritis, poor dentition, amputation of different digits etc. he has survived sepsis a number of times and a code. He hangs onto the believe that he is going to get out of the hospital, get back to the [facility] and then be discharged, and go home to live. He thinks that he can have his relatives take care of him. Things that are in his way at this time are the lack of money to do so and also the fact that he feels that he slid so far backwards this admission because he has not had physical therapy. I have reminded him that he has had both loads of physical therapy over the years, but he presently is unable to shift even from his side forward or backwards 10 degrees so the pillows can be placed, that he needs help with all toileting etc. in short all of us talked about his quality of life and the reality that he probably will not improve and will live forever in a assisted at best. Each 1 of us talked about the lack of progress and actually sliding backwards regarding his overall health Consults Consult date: 08/17/19 Requesting physician: Priscila Canela Assessment and Plan Assessment and plan (1) Heart failure with preserved ejection fraction: Status: Acute (2) Diabetic gastroparesis: Status: Acute (3) Obstructive sleep apnea: Status: Chronic (4) Hypoventilation associated with obesity syndrome: Status: Chronic (5) Chronic iron deficiency anemia: Status: Acute (6) Protein-calorie malnutrition, mild: Status: Acute (7) Decubitus ulcer, stage 4 with infection: Status: Chronic (8) S/P proctocolectomy: Status: Acute (9) Pulmonary hypertension: Status: Acute (10) Palliative care encounter: Status: Acute Assessment and plan: We spent approximately an hour and a once room. We also spoke about our concerns and how futile much of the treatment that we were doing was to his overall health. Despite a major reality check he continues to believe that he will get better, he will be able to walk again, he will go home to live with his family, and that he will survive all of the setbacks. He also feels that he will heal his wound even though he has not in 4 weeks. I did talk to him about magical thinking how he thinks that some PT is going to make him all better. I brought in some reality that he has been having lots of PT over the years and he is slowly being more and more disabled. He is not interested in changing his CODE STATUS he remains a full code This document was created by [employer] software. Content was screened for misspellings, grammatical mistakes, etc. I apologize for any problems, but please contact me for further clarification if needed. Review of Systems Narrative: Today he said he was feeling pretty good. He did not have any nausea vomiting diarrhea constipation. He does not have a Downing in. His pain level is tolerable. He does not have any chest pain, shortness of breath, his bones and muscles always hurt [facility] Medical History (Updated 08/17/19 @ 13:45 by Anne Horowitz MD, [place]) Acromegaly (Chronic) Acute on chronic kidney failure (Resolved) Adrenal insufficiency (Chronic) Ambulatory dysfunction (Chronic) Anemia (Chronic Unknown) Atrial flutter, paroxysmal (Chronic) Back pain (Chronic 06/21/13) CAD (coronary artery disease) (Chronic) Cardiopulmonary arrest with successful resuscitation (Resolved) Chronic anxiety (Chronic) Chronic bipolar disorder (Chronic) a. With history of psychosis. Chronic cholecystitis (Chronic) Chronic insomnia (Chronic) Chronic iron deficiency anemia (Acute) Chronic pain (Chronic) On both Methadone and Fentanyl as well as Ultram and Naproxen. CKD (chronic kidney disease) (Chronic) Decubitus ulcer of sacral region, stage 4 (Acute) Decubitus ulcer, stage 4 with infection (Chronic) Diabetes mellitus (Chronic) Diabetic gastroparesis (Acute) Diabetic ulcer of toe associated with diabetes mellitus due to underlying condition, with bone involvement without evidence of necrosis (Inactive) 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 (Resolved) DVT (deep venous thrombosis) (Chronic) Dg April 2019. Has IVC filter placed 04/2019 Dyslipidemia (Chronic) Endocarditis due to Staphylococcus (Resolved) Heart failure with preserved ejection fraction (Acute) Hemorrhagic cystitis (Chronic) Hep C w/o coma, chronic (Acute) History of DVT (deep vein thrombosis) (Chronic) Hyperkalemia (Resolved) Hypomagnesemia (Resolved) Hypothyroidism (Chronic) Hypoventilation associated with obesity syndrome (Chronic) Ileostomy in place (Acute) Impaired mobility and ADLs (Chronic) Inability to get out of bed (Chronic 06/21/13) Lactic acidosis (Resolved) MRSA bacteremia (Acute) Obesity (Chronic) a. Obesity though he has had significant weight loss since last seen. Obstructive sleep apnea (Chronic) Old non-ST elevation myocardial infarction (NSTEMI) (Acute) March 2019 Open wound of left lower extremity without complication (Acute) secondary to trauma and from anticoagulation 04/2019 Osteoarthritis of both knees (Chronic) Severe. a. [id number] bilateral knees. 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 2 diabetes mellitus (Resolved) Palliative care encounter (Chronic) DObbertin PEA (Pulseless electrical activity) (Acute) episode of bradycardic arrest/PEA. thought to be secondary to gram neg sepsis from acute sonny. 03/2019 Pedal edema (Chronic) Persistent vomiting in adult patient (Acute) Poor self care (Chronic 06/21/13) Poorly controlled type 2 diabetes mellitus with circulatory disorder (Chronic) Presence of IVC filter (Acute) Protein-calorie malnutrition, mild (Acute) Pulmonary hypertension (Chronic) Rheumatoid arthritis (Chronic) Sepsis (Resolved) Septic arthritis of elbow, right (Inactive) Toxic metabolic encephalopathy (Resolved) Ulcer of left lower leg (Chronic) Ulcerative colitis (Chronic) UTI (urinary tract infection) (Resolved) UTI (urinary tract infection) due to Enterococcus (Resolved) Surgical History Arthroplasty of knee (Resolved 03/18/12) irrigation and lavage right Fracture, Open Treatment (Resolved) 4[place]13/18[place] [place] RIGHT DISTAL HUMERUS FRACTURE History of insertion of T-tube into biliary tract (Chronic) S/P colectomy (Chronic) S/P proctocolectomy (Acute) Social History Smoking/Tobacco Use Status: Former Tobacco Use Alcohol Intake: former Drug use: Rarely Substance use type: marijuana Housing: assisted Do you feel safe at home: Yes Do you feel safe in your relationship?: Yes Additional Social history[place] [facility] [place] Exam Narrative: He is lying in bed. He is on his back with full weight on his sacral wound. Very poor dentition. He is speaking in complete sentences. Palliative Performance Scale % Ambulation Activity and Evidence of Disease Self Care Intake Level of Consciousness 100 Full Normal activity, no evidence of disease Full Normal Full 90 Full Normal activity, some evidence of disease Full Normal Full 80 Full Normal activity with effort, some evidence of disease Full Normal or reduced Full 70 Reduced Unable to do normal work, some evidence of disease Full Normal or reduced Full 60 Reduced Unable to do hobby or some housework, significant disease Occasional assist necessary Normal or reduced Full or confusion 50 Mainly sit/lie Unable to do any work, extensive disease Considerable assistance required Normal or reduced Full or confusion 40 Mainly in bed Unable to do any work, extensive disease Mainly assistance Normal or reduced Full, drowsy, or confusion 30 Totally bed bound Unable to do any work, extensive disease Total care Reduced Full, drowsy, or confusion 20 Totally bed bound Unable to do any work, extensive disease Total care Minimal sips Full, drowsy, or confusion 10 Totally bed bound Unable to do any work, extensive disease Total care Mouth care only Drowsy or coma 0 - - - - Patient Score: 30 Results Last Vital Signs Temp 97.7 F 08/17/19 07:45 Pulse 66 08/17/19 07:45 Resp 18 08/17/19 07:45 BP 164/89 H 08/17/19 07:45 Pulse Ox 100 08/17/19 07:45 Labs Result diagrams: 08/16/19 06:25 08/16/19 21:50 Labs: Laboratory Results - last 24 hr 08/16/19 08/16/19 21:50 21:50 Creatinine 1.85 H Estimated GFR/1.73 m2 37.48 Vancomycin Trough 18.5
--- NOTE | 2019-08-17 14:55 | CHAPLAIN ---
I attended a meeting with Brendan, Dr. Horowitz, Dr. Canela, Fitness Centre Manager Nurys Rowe, Nurses Mike Sheldon and Heidi Eaton. The doctors were very clear with Brendan that his would is not likely to heal, as it hasn't gotten better in four weeks with good wound care and would vac. They also stated that they did not think it was realistic that Brendan would live outside of [facility] care facility again as he can't move himself in bed, stand or walk independently. Brendan said he still hopes that he can walk again and live, with assistance, in his own place, with possible help from his relatives. He said he doesn't want to , and he isn't giving up hope of living in his own place. When Nurys and I remained with Brendan, Nurys was clear in explaining to Brendan that this prognosis is not good, given all that his body is dealing with, but he can speak for himself and make his own decisions. He would like to eat cheeseburgers and other meals of his choice, but if he is still working to heal his would and be stronger, he will remain on a heart-healthy, low salt diet. Own told Nurys he doesn't have the money to buy his own place, so there is not specific plan in place.
[2019-08-17 15:12] VITALS: BP 164/82; PULSE 91; RESP 18; TEMP 36.6; O2SAT 95
--- NOTE | 2019-08-17 16:30 | CMPROGNOTE_ITS ---
- If Service Date Differs Date of service: 08/17/19 Time of Service: 16:30 Care Management Progress Note S/O: A team meeting was held today which included Dr. Horowitz, Heidi Whitney, wound care nurse, KATELYN Nuno, quality consultantmarni Schwab and box office agent Marie. Please see Dr. Horowitz's detailed note. All participants were open and clear about Brendan's prognosis and the unlikelihood that his sacral wound will ever heal for a variety of reasons and that he will never likely be able to live on his own. O tam verbalized understanding of the information but stated that he does not agree. He feels strongly that he can and will achieve his goal. He cited the fact that he has been critically ill and even experienced a cardiac arrest, but is here today. After the team concluded the meeting, Brendan shared with CM that he believes that miracles can happen and that he is not willing to give up hope. He will remain a full code. P:Brendan will likely return to the [facility] when medically cleared. CM will continue to support Brendan and his discharge planning needs. cc:
--- NOTE | 2019-08-17 17:06 | PGE_ITS ---
Date of Service Date of service: 08/17/19 Time of Service: 12:00 Assessment and Plan Assessment and plan (1) MRSA bacteremia: Status: Acute Assessment and plan: Continue vancomycin (end date 08/23/2019, though may have to continue longer depending on wound healing). (2) Decubitus ulcer, stage 4 with infection: Status: Chronic Assessment and plan: Poorly healing - some of this has to do with uncontrolled BGs, which we are addressing, but ultimately, Brendan is on steroids, is imobile and has difficulty repositioning himself in bed, making it difficult for his wound to heal. It is possible that it will never heal. 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 Increase long acting insulin. Will titrate basal bolus insulin to goal of 140- 180. (4) Obstructive sleep apnea: Status: Chronic Assessment and plan: Continue trilogy (5) Diabetic gastroparesis: Status: Acute Assessment and plan: Continue erythromycin Subjective Subjective Interval history since last seen: Brendan was seen today as part of the multidisciplinary meeting. Brendan was not auscultated, but did not appear to be short of breath. He has been wearing his trilogy every night. He expressed that he still has hope of one day living [place] the cabin and thinks that his niece and nephew might take care of him, though he hasn't asked them yet. We discussed with him that this is not a realistic plan and, also, that he is quite debilitated at this time and that he should reconsider his goals of care. He states he wants to live, he would like to have everything done, and he will continue to hope and pray that one day he gets to live in the cabin. We also discussed the fact that his wound may never heal. Exam Narrative Exam Narrative: General: Very alert middle-aged male, A&Ox3, quite articulate during his meeting, no evidence of tachypnea/dyspnea while laying flat in bed HEENT: EOMI, MMM Heart: not auscultated Lungs: nonlabored breathing Abdomen: covered with blankets Extremities: covered with blankets Objective Objective Clinical Data: Abnormal lab results 08/16/19 Range/Units 21:50 Creatinine 1.85 H (0.70-1.30) mg/dL Vital Signs Temperature 36.6 C 08/17/19 15:12 Temperature Source Tympanic 08/17/19 15:12 Pulse 91 H 08/17/19 15:12 Pulse Rhythm Regular 08/17/19 09:00 Respiratory Rate 18 08/17/19 15:12 Respiratory Effort Non-Labored 08/17/19 09:00 Respiratory Depth Normal 08/17/19 09:00 Respiratory Pattern Normal 08/17/19 09:00 Blood Pressure 164/82 H 08/17/19 15:12 Pulse Oximetry 95 08/17/19 15:12 Oxygen Delivery Method Room Air 08/17/19 15:12 Oxygen Flow Rate 0 08/17/19 15:12 Pain Level 2 08/17/19 15:12 Comment 08/17/19 09:00 Intake & Output 08/16/19 08/17/19 08/17/19 23:59 11:59 23:59 Intake Total 1090 / 1090 Output Total 2495 / 4295 2100 / 4050 1950 / 4050 Balance -2495 / -4295 -1010 / -2960 -1950 / -2960 Weight 103.4 kg Intake: IV 250 / 250 Oral 840 / 840 Output: Urine 1525 / 2725 1700 / 2400 700 / 2400 Stool 970 / 1570 400 / 1650 1250 / 1650 Other: Urine Color Yellow Yellow Yellow Urine Appearance Clear Clear Clear Urine Odor Normal Normal Stool Size Moderate Moderate Stool Characteristics Soft Soft Liquid Liquid Brown Voiding Methods Urinal Urinal Urinal Laboratory Results WBC 6.70 k/cumm (4.4-10.8) 08/16/19 06:25 RBC 3.53 m/cumm (4.50-6.00) L 08/16/19 06:25 Hgb 8.4 g/dL (13.5-17.5) L 08/16/19 06:25 Hct 27.6 % (40.0-50.0) L 08/16/19 06:25 MCV 78.2 fL (80-95) L 08/16/19 06:25 MCH 23.8 pg (27.0-33.0) L 08/16/19 06:25 MCHC 30.4 g/dL (32.0-36.0) L 08/16/19 06:25 RDW 21.0 % (11.8-14.1) H 08/16/19 06:25 Plt Count 226 x1000/uL (130-400) 08/16/19 06:25 MPV 9.7 fL (8.0-11.0) 08/16/19 06:25 Immature Gran % 3.6 % 08/16/19 06:25 Neutrophils % 77.3 08/16/19 06:25 Lymphocytes % 12.4 08/16/19 06:25 Monocytes % 5.7 08/16/19 06:25 Eosinophils % 0.9 08/16/19 06:25 Basophils % 0.1 08/16/19 06:25 Absolute Neutrophils 5.18 k/cumm (1.2-6.7) 08/16/19 06:25 Absolute Lymphocytes 0.83 k/cumm (1.2-3.4) L 08/16/19 06:25 Absolute Monocytes 0.38 k/cumm (0.11-0.7) 08/16/19 06:25 Absolute Eosinophils 0.06 k/cumm (0.0-0.7) 08/16/19 06:25 Absolute Basophils 0.01 k/cumm (0.0-0.2) 08/16/19 06:25 Differential Comment Rbc morph reviewed 08/16/19 06:25 RBC Morphology See below 08/16/19 06:25 Polychromasia Present 08/16/19 06:25 Hypochromasia 3+ 08/16/19 06:25 Poikilocytosis 2+ 08/16/19 06:25 Anisocytosis 2+ 08/16/19 06:25 Microcytosis 3+ 08/16/19 06:25 Ovalocytes 2+ 08/16/19 06:25 Sodium 136 mmol/L (136-145) 08/15/19 06:25 Potassium 4.7 mmol/L (3.5-5.1) 08/15/19 06:25 Chloride 106 mmol/L (98-107) 08/15/19 06:25 Carbon Dioxide 20.3 mmol/L (21.0-32.0) L 08/15/19 06:25 Anion Gap 9.7 mmol/L (3-11) 08/15/19 06:25 BUN 66 mg/dL (7-18) H 08/15/19 06:25 Creatinine 1.85 mg/dL (0.70-1.30) H 08/16/19 21:50 Estimated GFR/1.73 m2 37.48 (mL/min/1.73m2) 08/16/19 21:50 Glucose 191 mg/dL (74-106) H 08/15/19 06:25 Calcium 9.1 mg/dL (8.5-10.1) 08/15/19 06:25 Magnesium 1.8 mg/dL (1.8-2.4) 08/15/19 06:25 Iron 30 ug/dL (65-175) L 08/16/19 06:25 TIBC 249 ug/dL (250-450) L 08/16/19 06:25 Transferrin % Sat 12 % (20-55) L 08/16/19 06:25 Albumin 2.8 g/dL (3.4-5.0) L 08/16/19 06:25 Vancomycin Trough 18.5 ug/mL (10.0-20.0) 08/16/19 21:50
[2019-08-17] MEDS: Normal Saline Flush 10 ML SYR IVP (20:58)
[2019-08-17] MEDS: risperiDONE 0.5 MG TAB 1.5 MG PO (21:21)
[2019-08-17] MEDS: Levothyroxine 25 MCG TAB 12.5 MCG PO (21:22)
[2019-08-17 21:35] LABS: Glucose 397 mg/dL (74-106)
[2019-08-17] MEDS: Insulin Glargine 300 UNITS/3 ML PEN 30 UNITS SC (21:54)
[2019-08-17] MEDS: Melatonin 3 MG TAB PO (23:40)
[2019-08-17 23:51] VITALS: BP 157/76; PULSE 83; RESP 20; TEMP 37; O2SAT 95
[2019-08-18] MEDS: VANCOMYCIN 1,000 MG in Normal Saline 250 ML 166.667 MG IV (01:59)
[2019-08-18] MEDS: Calcium 600mg/Vit D 200U TAB 1 TAB PO ×2 (05:47→17:49)
[2019-08-18 07:45] VITALS: BP 147/65; PULSE 52; RESP 19; TEMP 35.9; O2SAT 98
[2019-08-18] MEDS: amLODIPine 5 MG TAB 10 MG PO (08:02)
[2019-08-18] MEDS: Apixaban 2.5 MG TAB PO ×2 (08:02→20:25)
[2019-08-18] MEDS: Ferrous Sulfate 325 MG TAB PO ×2 (08:02→20:25)
[2019-08-18] MEDS: Gabapentin 300 MG CAP PO ×3 (08:02→20:25)
[2019-08-18] MEDS: Ascorbic Acid 500 MG TAB 250 MG PO ×2 (08:02→20:24)
[2019-08-18] MEDS: hydrALAZINE 25 MG TAB 50 MG PO ×4 (08:03→20:25)
[2019-08-18] MEDS: Insulin Aspart 300 UNITS/3 ML PEN SC ×8 (08:03→22:05)
[2019-08-18] MEDS: predniSONE 20 MG TAB 40 MG PO (08:04)
[2019-08-18] MEDS: Terazosin 2 MG CAP 4 MG PO ×2 (08:04→20:24)
[2019-08-18] MEDS: Venlafaxine 37.5 MG CAPCR 112.5 MG PO (08:04)
[2019-08-18] MEDS: Pantoprazole 40 MG TABCR PO (08:04)
[2019-08-18] MEDS: Lactobacillus Acidophilus CAP 1 CAP PO ×3 (08:04→20:25)
[2019-08-18] MEDS: Protein Nutritional Supplement 16 GM 1 OUNCE PACKET PO ×3 (08:04→20:24)
--- NOTE | 2019-08-18 09:05 | INPN_ITS ---
Date of service: 08/18/19 Time of Service: 09:05 PT Notes Visit Reasons: MRSA BACTEREMIA, SACRAL DECUBITUS ULCER STG 4, GAS Physical Therapy Inpatient Progress Note Date: 08/18/2019 Dates of Service: 08/09/2019 through 08/18/2019 Referring Doctor: Pablo Cobb MD PT Orders: PT CONSULT: 59-year-old M, bedbound with decubitus ulcer, work to increase mobility Precautions: Contact. Fall. Activity as tolerated. Subjective: Patient continues to adamantly refuse out-of-bed activities stating that he does not want anymore pressure on his knees more that he has to with his daily weights. Objective: General Observation: Resting in bed at initiation of session. Nurse Ana Maria and ROSY Medrano present during session. Pleasant. IV to RUE. Wound VAC to sacral ulcer seen. IV in the right UE. Mental Status: A and O x 3 Pain: Complained of pain in both knees with the right knee more affected than the left ROM: Right Upper Extremity: Shoulder flexion allows 45 degrees. Elbow motion allows WFL. Weak but functional. He has partial opening and partial closing of the hand. Left Upper Extremity: Shoulder flexion allows 50 degrees. Elbow motion WFL. Weak but functional. He has partial opening and partial closing of the hand. Right Lower Extremity: Hip flexors allows less than 90 degrees. Right knee -20 degrees extension. Knee flexion 22 90 degrees. Ankle dorsiflexion allows 0 degrees. Left Lower Extremity: Hip flexors less than 90 degrees. Left knee -10 degrees extension. Knee flexion -10 to 90 degrees. Ankle dorsiflexion to 0 degrees. Strength: Right Upper Extremity: Shoulder flexors 3-/5. Shoulder abductors 3-/5. Elbow flexors 3-/5. Elbow extensors 3-/5. Left Upper Extremity: Shoulder flexors 3-/5. Shoulder abductors 3-/5. Elbow flexors 3-/5. Elbow extensors 3-/5. Right Lower Extremity: Hip flexors 3-/5. Hip abductors 3-/5. Knee flexors 3-/5. Knee extensors 2-/5. Ankle dorsiflexors 1/5. Ankle plantarflexors 1/5. Left Lower Extremity:Hip flexors 3-/5. Hip abductors 3-/5. Knee flexors 3-/5. Knee extensors 2-/5. Ankle dorsiflexors 1/5. Ankle plantarflexors 1/5. Bed Mobility/Transfers: Rolling to minimal assist of 2 Supine to sit minimal assist of 2 Sit to supine minimal assist of 2 Sit to stand minimal assist of 2 Stand to sit minimal assist of 2 Bed to chair NT Chair to bed NT Gait: Refused mobility assessment due to fatigue, pain in B knees, and weakness. Balance: Static Sitting: Good Dynamic Sitting: Good Static Standing: NT Dynamic Standing: NT Assessment: Brendan has refused any standing activities for three consecutive days now stating that he only wants to stand once and that is just with getting his weight everyday. Will try to put [employer] Elsa to work with him this afternoon who hopefully can convince him to do more. Brendan continues to present with functional decline with bed mobility tasks and requires assistance of 2 people for sit to stand activity. He is currently limited with generalized body weakness, pain in bilateral knees with the right more affected than the left, and fatigue resulting for from admitting diagnoses. Patient continues to present with clinical signs and symptoms consistent with current/admitting diagnoses that have resulted to mobility limitations, gait instability, generalized weakness, and impairment of motor control as demonstrated by the following impairment level findings: 1. Decreased strength to B LE major muscle groups 2. Impaired sitting/standing balance 3. Impaired activity tolerance 4. Limitation of joint range of motion in BUE/LE Impairments are continuing to contribute to the following functional limitations: 1. Dependent bed mobility skills 2. Increased dependence with transfers 3. Inability to safely ambulate without assistive device and physical assistance 4. Increase completion time for mobility ADL performance 5. Increased fall risk 6. Inability to negotiate steps alone safely Patient is assessed as a 75195 high complexity based on the following: History: 59-year-old male with impairment level findings, functional limitations, and past medical history as listed above Examination:Demonstrable impairment in skin integrity, range of motion, strength, balance, and mobility level with underlying impairments and functional limitations as documented above Presentation:Evolving Decision Makin high complexity Goals: Goals X1 week 1. Supine-Sit CGA MET 2. Sit-Supine CGA MET 3. Sit-Stand contact-guard assist NOT MET, CONTINUE 4. Stand-Sit contact-guard assist NOT MET, CONTINUE 5. Bed-Chair contact-guard assist NOT MET, CONTINUE 6. Chair-Bed contact-guard assist NOT MET, CONTINUE 7. Minimal assist gait on level surface with use of least restrictive device for at least 15 feet without report of pain nor dyspnea NOT MET, DISCONTINUE 8. Fair static and dynamic standing balance/tolerance NOT MET, CONTINUE DISCHARGE RECOMMENDATIONS: Return to SNF when medically cleared to do so with continued skilling for physical therapy to facilitate achievement of highest functional mobility level. TREATMENT CODE/TIME: 68058 x 25 minutes beginning at 9:05 AM.
--- NOTE | 2019-08-18 11:18 | OT.INTREAT ---
Date of service: 08/18/19 Time of Service: 07:40 Occupational Therapy Notes Occupational Therapy Inpatient Treatment Note Date: 08/18/19 PRECAUTIONS: Fall, Contact precautions, FULL SUBJECTIVE: Pt was lying in bed when OT arrived. He states that he feels ok, but not great. He is agreeable to OT session. OBJECTIVE: PAIN: c/o pain throughout full body 3-06/03 THEREX: Pts (B) UE ROM is limited due to increased stiffness and pain. OT educated and trained pt in (B) UE ROM exercises with isometric strengthening as well as min vc provided throughout for muscle facilitation. Pt performed (B) shoulder flexion, abduction, adduction, elbow flexion and extension and wrist flexion and extension to facilitate and maintain ROM of pts (B) UE required for performance and (I) in his ADL/IADL routines. ASSESSMENT/PLAN: Progression of therex program as well as functional (I) to pts baseline level of function for ADL/IADL routines. TREATMENT CODES/TIME: [id number], 10 minutes (07:40) [facility]
--- NOTE | 2019-08-18 15:06 | PT.INTREAT ---
Date of service: 08/18/19 Time of Service: 15:06 PT Notes Visit Reasons: MRSA BACTEREMIA, SACRAL DECUBITUS ULCER STG 4, GAS Inpatient Physical Therapy Treatment Note [facility] Date: 08/18/19 PRECAUTIONS: Fall SUBJECTIVE: Brendan states that he has not been walking, but has been standing up at EOB. OBJECTIVE: PAIN: Patient c/o B knee soreness after session, as well as sacral discomfort with transfers BED MOBILITY/TRANSFERS Supine-sit: I with HOB flat Sit-supine: Min A with HOB flat Sit-stand: Min A Stand-sit: Min A GAIT Assistive Device: FWW Weight bearing: Full Assist: Min A x2 Distance: 2 side steps to L Deviation: Very shaky and weak ASSESSMENT: Patient tolerated session with c/o knee and sacral discomfort. He was able to tolerate taking several side steps with FWW support and Min A. Patient would benefit from continued participation in gait training as well as global strengthening for improved strength and mobility. PLAN: Continue with PT's POC TREATMENT CODE/TIME: 20 minutes; [id number]
[2019-08-18 15:40] VITALS: BP 164/82; PULSE 86; RESP 19; TEMP 36; O2SAT 97
[2019-08-18 19:07] VITALS: BP 145/65; PULSE 82; RESP 18; TEMP 36.6; O2SAT 97
[2019-08-18] MEDS: Levothyroxine 25 MCG TAB 12.5 MCG PO (22:03)
[2019-08-18] MEDS: risperiDONE 0.5 MG TAB 1.5 MG PO (22:04)
[2019-08-18] MEDS: Insulin Glargine 300 UNITS/3 ML PEN 40 UNITS SC (22:07)
[2019-08-19] MEDS: Melatonin 3 MG TAB PO (00:08)
[2019-08-19 03:50] VITALS: BP 164/78; PULSE 70; RESP 18; TEMP 36.4; O2SAT 100
[2019-08-19] MEDS: Calcium 600mg/Vit D 200U TAB 1 TAB PO ×2 (06:20→17:00)
[2019-08-19] MEDS: Normal Saline Flush 10 ML SYR IVP ×2 (06:21→21:40)
[2019-08-19] MEDS: VANCOMYCIN 1,000 MG in Normal Saline 250 ML 250 MG IV (06:21)
[2019-08-19] MEDS: Normal Saline 500 ML 100 ML IV (06:21)
[2019-08-19 07:26] VITALS: BP 133/79; PULSE 59; RESP 18; TEMP 36.7; O2SAT 100
[2019-08-19] MEDS: Terazosin 2 MG CAP 4 MG PO ×2 (08:51→21:30)
[2019-08-19] MEDS: Pantoprazole 40 MG TABCR PO (08:52)
[2019-08-19] MEDS: amLODIPine 5 MG TAB 10 MG PO (08:52)
[2019-08-19] MEDS: Gabapentin 300 MG CAP PO ×3 (08:52→21:31)
[2019-08-19] MEDS: Lactobacillus Acidophilus CAP 1 CAP PO ×3 (08:52→21:31)
[2019-08-19] MEDS: Ferrous Sulfate 325 MG TAB PO ×2 (08:52→21:30)
[2019-08-19] MEDS: predniSONE 20 MG TAB 40 MG PO (08:53)
[2019-08-19] MEDS: hydrALAZINE 25 MG TAB 50 MG PO ×4 (08:53→21:31)
[2019-08-19] MEDS: Venlafaxine 37.5 MG CAPCR 112.5 MG PO (08:53)
[2019-08-19] MEDS: Apixaban 2.5 MG TAB PO ×2 (08:53→21:30)
[2019-08-19] MEDS: Ascorbic Acid 500 MG TAB 250 MG PO ×2 (08:54→21:30)
[2019-08-19] MEDS: Insulin Aspart 300 UNITS/3 ML PEN SC ×7 (08:55→21:38)
[2019-08-19] MEDS: Protein Nutritional Supplement 16 GM 1 OUNCE PACKET PO ×3 (08:57→21:31)
--- NOTE | 2019-08-19 09:42 | PDOC.CMACT ---
- If Service Date Differs Date of service: 08/19/19 Time of Service: 09:42 Care Management Activity Note S/O: Brendan continues to be in good spirits despite his ongoing health issues. He enjoys watching television and visiting with staff. 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 Brendan has declined items from the activity cart as his immobility makes it difficult to color or do any type of puzzle. P:Brendan will likely return to the [facility] when medically cleared. will continue to support Brendan and his discharge planning needs.
--- NOTE | 2019-08-19 09:49 | OTTR_ITS ---
Date of service: 08/19/19 Time of Service: 07:45 Occupational Therapy Notes Occupational Therapy Inpatient Treatment Note Date: 08/19/19 PRECAUTIONS: Fall, Contact precautions, FULL SUBJECTIVE: Pt was lying in bed when OT arrived. He states that he feels a little better today but is tired. OBJECTIVE: PAIN: c/o stiffness in (B) UE THEREX: Pts (B) UE ROM is limited due to increased stiffness and pain. OT educated and trained pt in (B) UE ROM exercises with isometric strengthening as well as min vc provided throughout for muscle facilitation. Pt performed (B) shoulder flexion, abduction, adduction, elbow flexion and extension and wrist flexion and extension 10x each to facilitate and maintain ROM of pts (B) UE required for performance and (I) in his ADL/IADL routines. Pt tolerated this well with ability to touch his face to eyebrow level with (R) UE. ASSESSMENT/PLAN: Progression of therex program as well as functional (I) to pts baseline level of function for ADL/IADL routines, possible use of thera band if pt is not too sore. TREATMENT CODES/TIME: [id number], 15 minutes (07:45) Suzanne Javier OTR/L [facility]
[2019-08-19] MEDS: oxyCODONE 5 MG TAB PO (13:45)
--- NOTE | 2019-08-19 13:54 | WOUNDCARE ---
Wound Care Report keen wound vac patient pump hours reset to zero at this time to help us determine how many hours vac is actually functioning while on Pt
[2019-08-19 15:45] VITALS: BP 156/80; PULSE 87; RESP 19; TEMP 37.5; O2SAT 96
--- NOTE | 2019-08-19 16:04 | PT.INNT ---
Date of service: 08/19/19 Time of Service: 16:04 PT Notes Visit Reasons: MRSA BACTEREMIA, SACRAL DECUBITUS ULCER STG 4, GAS Patient was not available during afternoon visit. Will coordinate with medicare contact specialist and patient to review goals as well as identify best schedule for skilled services in order to achieve maximum functional level.
[2019-08-19 18:59] VITALS: BP 130/64; PULSE 81; RESP 18; TEMP 37.4; O2SAT 95
[2019-08-19] MEDS: risperiDONE 0.5 MG TAB 1.5 MG PO (21:31)
[2019-08-19] MEDS: Levothyroxine 25 MCG TAB 12.5 MCG PO (21:31)
[2019-08-19] MEDS: Insulin Glargine 300 UNITS/3 ML PEN 40 UNITS SC (21:38)
[2019-08-20] MEDS: Melatonin 3 MG TAB PO (00:14)
[2019-08-20] MEDS: Calcium 600mg/Vit D 200U TAB 1 TAB PO ×2 (06:13→19:23)
[2019-08-20 06:18] VITALS: BP 172/79; PULSE 69; RESP 19; TEMP 36.7; O2SAT 98
[2019-08-20 07:37] VITALS: BP 151/64; PULSE 80; RESP 20; TEMP 36.8; O2SAT 99
[2019-08-20] MEDS: Protein Nutritional Supplement 16 GM 1 OUNCE PACKET PO ×3 (07:53→21:01)
[2019-08-20] MEDS: Apixaban 2.5 MG TAB PO ×2 (07:59→21:02)
[2019-08-20] MEDS: Terazosin 2 MG CAP 4 MG PO ×2 (07:59→21:02)
[2019-08-20] MEDS: Ascorbic Acid 500 MG TAB 250 MG PO ×2 (07:59→21:02)
[2019-08-20] MEDS: oxyCODONE 5 MG TAB PO ×3 (07:59→16:37)
[2019-08-20] MEDS: predniSONE 20 MG TAB 40 MG PO (07:59)
[2019-08-20] MEDS: Pantoprazole 40 MG TABCR PO (08:00)
[2019-08-20] MEDS: Gabapentin 300 MG CAP PO ×3 (08:00→21:02)
[2019-08-20] MEDS: Lactobacillus Acidophilus CAP 1 CAP PO ×3 (08:00→21:01)
[2019-08-20] MEDS: amLODIPine 5 MG TAB 10 MG PO (08:00)
[2019-08-20] MEDS: Ferrous Sulfate 325 MG TAB PO ×2 (08:01→21:01)
[2019-08-20] MEDS: hydrALAZINE 25 MG TAB 50 MG PO ×4 (08:01→21:01)
[2019-08-20] MEDS: Venlafaxine 37.5 MG CAPCR 112.5 MG PO (08:01)
[2019-08-20] MEDS: Normal Saline Flush 10 ML SYR IVP ×3 (08:05→22:43)
[2019-08-20] MEDS: Insulin Aspart 300 UNITS/3 ML PEN SC ×8 (08:05→22:39)
[2019-08-20 09:44] LABS: Vancomycin, Trough 16.4 ug/mL (10.0-20.0)
--- NOTE | 2019-08-20 10:07 | OT.INTREAT ---
Date of service: 08/20/19 Time of Service: 08:00 Occupational Therapy Notes Occupational Therapy Inpatient Treatment Note Date: 08/20/19 PRECAUTIONS: Fall, Contact precautions, FULL SUBJECTIVE: Pt was lying in bed when OT arrived. He states that he is really sore today in his lower back and glutes. He was unable to get comfortable and is propped on a pillow rolled onto his (R) side to relief pressure when OT arrived. OBJECTIVE: PAIN: c/o pain in low back and glutes from wounds. THEREX [id number]: Pts (B) UE ROM is limited due to increased stiffness and pain (R) > (L). OT educated and trained pt in (B) UE ROM exercises with isometric strengthening as well as min vc provided throughout for muscle facilitation. Pt performed (B) shoulder flexion, abduction, adduction, elbow flexion and extension and wrist flexion and extension 15x each to facilitate and maintain ROM of pts (B) UE required for performance and (I) in his ADL/IADL routines. Pt notes fatigue at todays session and indicates that he has been using his (B) UE more functional. Crossing midline and facilitating motion to (A) with [facility] gown pt did well with today. Unable to progress with thera band due to pain in (B) UE. ASSESSMENT/PLAN: Progression of therex program as well as functional (I) to pts baseline level of function for ADL/IADL routines, possible use of thera band if pt is not too sore. TREATMENT CODES/TIME: [id number], 17 minutes (08:00) Suzanne Javier OTR/L [facility]
[2019-08-20] MEDS: VANCOMYCIN 1,000 MG in Normal Saline 250 ML 250 MG IV (10:59)
--- NOTE | 2019-08-20 13:09 | W.NUTRFU ---
Date of service: 08/20/19 Time of Service: 13:10 Nutritional Follow up NOTE: Brendan continues to complete 100% of meals. Following low residue, diabetic, low fat soft diet to aid in digestion and avoiding another SBO in view of diabetic gastroparesis. Blood sugars continue to be elevated, often > 250 mg/dl, most likely due to chronic steriod use for Crohns Dx and increases risks for poor wound healing and increased risk for infection. Met with Brendan today and he requests being able to liberalize his diet once a week so he can have a hamburger. Discussed with Dr. Canela, who consulted with Dr. Ace and request granted. Explained to Brendan risks in liberalizing his diet. Is having a burger tonight. Continues to meet 100% nutrient needs with diet/supplements which should promote optimal wound healing, unfortunately, nursing reports wound not healing as expected and most likely due to high blood sugars and poor vascularization. Will continue to follow. Time Spent in Nutritional Counseling and Treatment: 10 min
[2019-08-20 15:28] VITALS: BP 160/72; PULSE 79; RESP 22; TEMP 36.7; O2SAT 97
[2019-08-20] MEDS: Acetaminophen 325 MG TAB 650 MG PO (16:36)
[2019-08-20] MEDS: Insulin Aspart 300 UNITS/3 ML PEN 15 UNITS SC (21:10)
[2019-08-20] MEDS: Insulin Glargine 300 UNITS/3 ML PEN 40 UNITS SC (22:34)
[2019-08-20] MEDS: Levothyroxine 25 MCG TAB 12.5 MCG PO (22:35)
[2019-08-20] MEDS: risperiDONE 0.5 MG TAB 1.5 MG PO (22:36)
[2019-08-20 23:54] VITALS: BP 175/75; PULSE 74; RESP 19; TEMP 37; O2SAT 98
[2019-08-21] MEDS: Melatonin 3 MG TAB PO ×2 (00:03→23:59)
[2019-08-21] MEDS: Calcium 600mg/Vit D 200U TAB 1 TAB PO ×2 (06:12→16:53)
[2019-08-21] MEDS: oxyCODONE 5 MG TAB PO ×3 (06:48→16:53)
[2019-08-21 07:45] VITALS: BP 143/78; PULSE 60; RESP 16; TEMP 35.9; O2SAT 98
[2019-08-21] MEDS: Protein Nutritional Supplement 16 GM 1 OUNCE PACKET PO ×3 (08:02→20:52)
[2019-08-21] MEDS: Venlafaxine 37.5 MG CAPCR 112.5 MG PO (08:03)
[2019-08-21] MEDS: Gabapentin 300 MG CAP PO ×3 (08:03→20:54)
[2019-08-21] MEDS: Ferrous Sulfate 325 MG TAB PO ×2 (08:03→20:54)
[2019-08-21] MEDS: amLODIPine 5 MG TAB 10 MG PO (08:03)
[2019-08-21] MEDS: Apixaban 2.5 MG TAB PO ×2 (08:03→20:54)
[2019-08-21] MEDS: Lactobacillus Acidophilus CAP 1 CAP PO ×3 (08:03→20:54)
[2019-08-21] MEDS: Terazosin 2 MG CAP 4 MG PO ×2 (08:04→20:52)
[2019-08-21] MEDS: hydrALAZINE 25 MG TAB 50 MG PO ×4 (08:04→20:54)
[2019-08-21] MEDS: Pantoprazole 40 MG TABCR PO (08:04)
[2019-08-21] MEDS: predniSONE 20 MG TAB 40 MG PO (08:04)
[2019-08-21] MEDS: Ascorbic Acid 500 MG TAB 250 MG PO ×2 (08:04→20:53)
[2019-08-21] MEDS: Insulin Aspart 300 UNITS/3 ML PEN SC ×4 (08:16→21:49)
[2019-08-21] MEDS: Insulin Aspart 300 UNITS/3 ML PEN 15 UNITS SC ×3 (08:16→16:56)
[2019-08-21] MEDS: Insulin Glargine 300 UNITS/3 ML PEN 15 UNITS SC (09:40)
[2019-08-21] MEDS: Normal Saline Flush 10 ML SYR IVP ×2 (09:41→16:50)
--- NOTE | 2019-08-21 10:03 | PT.INTREAT ---
Date of service: 08/21/19 Time of Service: 09:40 PT Notes Visit Reasons: MRSA BACTEREMIA, SACRAL DECUBITUS ULCER STG 4, GAS Inpatient Physical Therapy Treatment Note [facility] Date: 08/21/19 PRECAUTIONS: Fall. Droplet precautions. Activity as tolerated. SUBJECTIVE: Brendan is only agreeable to doing strengthening exercises at bed level. Did not want to do any standing exercises due to B knee pain and was too tired after exercises to perform any walking. OBJECTIVE: Wound dressing to stage 4 sacral decubitus seen. PAIN: Reports pain in B knees at 7-8/10. Low back area at 5-6/10. THEREX: Patient completed LAQs x 10 in seated using 2 lb AW, seated [id number] x 10 on each side using 2 lb ankle weights, seated hip abduction x 10, ankle pumps x 20 and seated knee flexion with use of orange theraband x10 each side. ASSESSMENT: Patient demonstrates slow increase in activity tolerance. Pain in B knees limiting mobility ADL progression. Patient unable to complete both exercises and gait in same session. PLAN: Continue with POC TREATMENT CODE/TIME: [id number] x 16 minutes beginning at 09:40 AM.
[2019-08-21] MEDS: VANCOMYCIN 1,000 MG in Normal Saline 250 ML 167 MG IV (14:25)
[2019-08-21 15:32] VITALS: BP 163/73; PULSE 80; RESP 20; TEMP 37.2; O2SAT 96
[2019-08-21 20:51] VITALS: BP 166/77; PULSE 74; RESP 20; TEMP 36.8; O2SAT 98
[2019-08-21] MEDS: Levothyroxine 25 MCG TAB 12.5 MCG PO (21:47)
[2019-08-21] MEDS: risperiDONE 0.5 MG TAB 1.5 MG PO (21:47)
[2019-08-21] MEDS: Insulin Glargine 300 UNITS/3 ML PEN 50 UNITS SC (21:50)
[2019-08-21 23:21] VITALS: BP 165/72; PULSE 74; RESP 19; TEMP 37.1; O2SAT 98
[2019-08-22] MEDS: Calcium 600mg/Vit D 200U TAB 1 TAB PO ×2 (06:50→17:44)
[2019-08-22 07:30] VITALS: BP 150/63; PULSE 66; RESP 20; TEMP 37.1; O2SAT 97
[2019-08-22] MEDS: Insulin Glargine 300 UNITS/3 ML PEN 15 UNITS SC (08:48)
[2019-08-22] MEDS: Insulin Aspart 300 UNITS/3 ML PEN SC ×4 (08:49→21:29)
[2019-08-22] MEDS: Lactobacillus Acidophilus CAP 1 CAP PO ×3 (08:50→20:10)
[2019-08-22] MEDS: Pantoprazole 40 MG TABCR PO (08:51)
[2019-08-22] MEDS: Ascorbic Acid 500 MG TAB 250 MG PO ×2 (08:51→20:07)
[2019-08-22] MEDS: Gabapentin 300 MG CAP PO ×3 (08:51→20:10)
[2019-08-22] MEDS: Terazosin 2 MG CAP 4 MG PO ×2 (08:51→20:07)
[2019-08-22] MEDS: amLODIPine 5 MG TAB 10 MG PO (08:51)
[2019-08-22] MEDS: hydrALAZINE 25 MG TAB 50 MG PO ×4 (08:51→20:09)
[2019-08-22] MEDS: predniSONE 20 MG TAB 40 MG PO (08:51)
[2019-08-22] MEDS: Venlafaxine 37.5 MG CAPCR 112.5 MG PO (08:51)
[2019-08-22] MEDS: Apixaban 2.5 MG TAB PO ×2 (08:51→20:10)
[2019-08-22] MEDS: Ferrous Sulfate 325 MG TAB PO ×2 (08:51→20:10)
[2019-08-22] MEDS: Normal Saline Flush 10 ML SYR IVP ×2 (09:02→17:45)
[2019-08-22] MEDS: Acetaminophen 325 MG TAB 650 MG PO (09:02)
[2019-08-22] MEDS: oxyCODONE 5 MG TAB PO (09:03)
[2019-08-22] MEDS: Protein Nutritional Supplement 16 GM 1 OUNCE PACKET PO ×3 (09:03→20:07)
--- NOTE | 2019-08-22 11:26 | PT.INTREAT ---
PT Notes Visit Reasons: MRSA BACTEREMIA, SACRAL DECUBITUS ULCER STG 4, GAS Inpatient Physical Therapy Treatment Note [facility] Date: 08/22/2019 PRECAUTIONS: Fall, Standard and Activity as tolerated. SUBJECTIVE: Indicated he is willing to try standing or walking. Agreed to trying this if not asked to do bed exercises too. OBJECTIVE: PAIN: Bilateral knee pain BED MOBILITY/TRANSFERS Rolling L/R: I Supine-sit: I Sit-supine: I Sit-stand: Min assist of 2 Stand-sit: SBA of 2 GAIT Assistive Device: FWW Weight bearing: Full Assist: CGA of 2 Distance: Standing only for 45 seconds to 1 minute only Refused to try again Held on bed exercises as agreed prior to standing. ASSESSMENT: Tolerated standing briefly. Not willing to try side stepping or trying to stand again. PLAN: Continue to encourage improved mobility as able to tolerate for increased ADL function. TREATMENT CODE/TIME: JIMMIE ([id number]), 10:55 to 11:15 (20')
[2019-08-22] MEDS: Insulin Aspart 300 UNITS/3 ML PEN 15 UNITS SC ×2 (12:07→16:51)
[2019-08-22 15:29] VITALS: BP 141/69; PULSE 81; RESP 20; TEMP 37.1; O2SAT 96
[2019-08-22] MEDS: VANCOMYCIN 1,000 MG in Normal Saline 250 ML 166.66 MG IV (17:45)
[2019-08-22 20:23] VITALS: BP 160/74; PULSE 73; RESP 20; TEMP 36.5; O2SAT 98
[2019-08-22] MEDS: risperiDONE 0.5 MG TAB 1.5 MG PO (21:26)
[2019-08-22] MEDS: Levothyroxine 25 MCG TAB 12.5 MCG PO (21:27)
[2019-08-22] MEDS: Insulin Glargine 300 UNITS/3 ML PEN 50 UNITS SC (21:30)
[2019-08-23] VITALS: BP 160/68; PULSE 76; RESP 20; TEMP 36.8; O2SAT 97
[2019-08-23] MEDS: Calcium 600mg/Vit D 200U TAB 1 TAB PO ×2 (06:10→17:33)
[2019-08-23 07:29] VITALS: BP 150/64; PULSE 65; RESP 19; TEMP 36.6; O2SAT 99
--- NOTE | 2019-08-23 08:09 | PCPN_ITS ---
Date of service: 08/23/19 Time of Service: 08:09 Assessment and Plan Assessment and plan (1) Diabetic gastroparesis: Status: Acute (2) Ulcer of left lower leg: Status: Chronic Qualifiers: Non-pressure ulcer stage: limited to breakdown of skin Qualified Code(s): L97.921 - Non-pressure chronic ulcer of unspecified part of left lower leg limited to breakdown of skin (3) Chronic iron deficiency anemia: Status: Acute (4) Sacral wound: Status: Acute (5) Palliative care encounter: Status: Chronic Assessment and plan: It is obvious that all one has been thinking about all that we said a week ago. He understands that without healing his sacral wound his prognosis is very poor. He also understands that he may be more care and what a care home can give him without special accommodations. I did not discuss again his CODE STATUS. I will leave that for another day I think he is starting to get to the point where he understands how endangered he is on a regular basis even when he is not overtly septic etc. We will continue to follow This document was created by [employer] software. Content was screened for misspellings, grammatical mistakes, etc. I apologize for any problems, but please contact me for further clarification if needed. Subjective Subjective Interval history since last seen: Brendan has continued to be in the hospital. He had problems with his wound VAC and yesterday it had to be changed. The different numbers are on the floor. Essentially there has not been any real change in the healing of his sacral wound. He states that his urination and bowels are fine. He had questions for me regarding what would happen to him if the [facility] was not able to take him back. Exam Narrative Exam Narrative: Brendan was lying in bed. He it took 2 people to turn him on his side. His nurse did come in and stated that she did not feel that he would be eligible for the wound VAC once he left this facility and that he has had a considerably long time on the wound VAC to see if it would help. Surgery has already said that they did not feel he was a surgical candidate. He is breathing and talking in complete sentences. His heart is regular today. He does have the wound VAC in place and I did not take it down. His toes do show some areas of sores. His colostomy is not full Objective Objective Clinical Data: Vital Signs Temperature 97.9 F 08/23/19 07:29 Temperature Source Tympanic 08/23/19 07:29 Pulse 65 08/23/19 07:29 Pulse Rhythm Regular 08/23/19 00:00 Respiratory Rate 19 08/23/19 07:29 Respiratory Effort 08/23/19 00:00 Respiratory Depth Normal 08/23/19 00:00 Respiratory Pattern Normal 08/23/19 00:00 Blood Pressure 150/64 H 08/23/19 07:29 Pulse Oximetry 99 08/23/19 07:29 Oxygen Delivery Method Room Air 08/23/19 07:29 Oxygen Flow Rate 0 08/23/19 07:29 Pain Level 2 08/23/19 07:29 Comment 08/17/19 09:00 Intake & Output 08/22/19 08/22/19 08/23/19 11:59 23:59 11:59 Intake Total 0 / 0 90 / 90 Output Total 2000 / 3750 1750 / 3750 1500 / 1500 Balance -2000 / -3750 -1750 / -3750 -1410 / -1410 Weight 227 lb 4.745 oz Intake: Oral 0 / 0 90 / 90 Output: Urine 1200 / 2650 1450 / 2650 1150 / 1150 Stool 800 / 1100 300 / 1100 350 / 350 Other: Urine Color Yellow Yellow Yellow Urine Appearance Clear Clear Clear Urine Odor Normal Normal Normal Comment ALSO, SOME URINE HAD LEAKED OUT OF URINAL ONTO PT'S BED PAD ALSO. WOULD ESTIMATE SAME AMT AGAIN ON BED PAD IN URINAL. BED PAD CHANGED AND U RINAL EMPTIED. CLEANSED W/WARM WIPES. Stool Size Large Large Moderate Stool Characteristics Foamy Soft Soft Voiding Methods Urinal Urinal Urinal Laboratory Results WBC 6.70 k/cumm (4.4-10.8) 08/16/19 06:25 RBC 3.53 m/cumm (4.50-6.00) L 08/16/19 06:25 Hgb 8.4 g/dL (13.5-17.5) L 08/16/19 06:25 Hct 27.6 % (40.0-50.0) L 08/16/19 06:25 MCV 78.2 fL (80-95) L 08/16/19 06:25 MCH 23.8 pg (27.0-33.0) L 08/16/19 06:25 MCHC 30.4 g/dL (32.0-36.0) L 08/16/19 06:25 RDW 21.0 % (11.8-14.1) H 08/16/19 06:25 Plt Count 226 x1000/uL (130-400) 08/16/19 06:25 MPV 9.7 fL (8.0-11.0) 08/16/19 06:25 Immature Gran % 3.6 % 08/16/19 06:25 Neutrophils % 77.3 08/16/19 06:25 Lymphocytes % 12.4 08/16/19 06:25 Monocytes % 5.7 08/16/19 06:25 Eosinophils % 0.9 08/16/19 06:25 Basophils % 0.1 08/16/19 06:25 Absolute Neutrophils 5.18 k/cumm (1.2-6.7) 08/16/19 06:25 Absolute Lymphocytes 0.83 k/cumm (1.2-3.4) L 08/16/19 06:25 Absolute Monocytes 0.38 k/cumm (0.11-0.7) 08/16/19 06:25 Absolute Eosinophils 0.06 k/cumm (0.0-0.7) 08/16/19 06:25 Absolute Basophils 0.01 k/cumm (0.0-0.2) 08/16/19 06:25 Differential Comment Rbc morph reviewed 08/16/19 06:25 RBC Morphology See below 08/16/19 06:25 Polychromasia Present 08/16/19 06:25 Hypochromasia 3+ 08/16/19 06:25 Poikilocytosis 2+ 08/16/19 06:25 Anisocytosis 2+ 08/16/19 06:25 Microcytosis 3+ 08/16/19 06:25 Ovalocytes 2+ 08/16/19 06:25 Sodium 136 mmol/L (136-145) 08/15/19 06:25 Potassium 4.7 mmol/L (3.5-5.1) 08/15/19 06:25 Chloride 106 mmol/L (98-107) 08/15/19 06:25 Carbon Dioxide 20.3 mmol/L (21.0-32.0) L 08/15/19 06:25 Anion Gap 9.7 mmol/L (3-11) 08/15/19 06:25 BUN 66 mg/dL (7-18) H 08/15/19 06:25 Creatinine 1.85 mg/dL (0.70-1.30) H 08/16/19 21:50 Estimated GFR/1.73 m2 37.48 (mL/min/1.73m2) 08/16/19 21:50 Glucose 397 mg/dL (74-106) H D 08/17/19 21:08 Calcium 9.1 mg/dL (8.5-10.1) 08/15/19 06:25 Magnesium 1.8 mg/dL (1.8-2.4) 08/15/19 06:25 Iron 30 ug/dL (65-175) L 08/16/19 06:25 TIBC 249 ug/dL (250-450) L 08/16/19 06:25 Transferrin % Sat 12 % (20-55) L 08/16/19 06:25 Albumin 2.8 g/dL (3.4-5.0) L 08/16/19 06:25 Vancomycin Trough 16.4 ug/mL (10.0-20.0) 08/20/19 09:18
--- NOTE | 2019-08-23 08:15 | OTTR_ITS ---
Date of service: 08/23/19 Time of Service: 07:40 Occupational Therapy Notes Occupational Therapy Inpatient Treatment Note Date: 08/23/19 PRECAUTIONS: Fall, Contact precautions, FULL SUBJECTIVE: Pt was lying in bed when OT arrived. He states that he had an ok weekend and notes that he does feel that his arms are improving. His (R) UE is looking less swollen than last week. OBJECTIVE: PAIN: c/o pain in glutes where wound vac is placed due to wound. Therapeutic Activities [id number]: Pts (B) UE ROM is limited due to increased stiffness. OT educated and trained pt in (B) UE ROM exercises with isometric strengthening and dynamic functional ROM with min vc provided throughout for muscle facilitation. Pt performed (B) shoulder flexion, abduction, adduction, elbow flexion and extension and wrist flexion and extension 15x each to facilitate and maintain ROM of pts (B) UE required for performance and (I) in his ADL/IADL routines. With functional ROM similar to lifting objects on a shelf, crossing midline to grab objects and facilitating grasp and release patterns. ASSESSMENT/PLAN: Progression of therex program as well as functional (I) to pts baseline level of function for ADL/IADL routines. TREATMENT CODES/TIME: [id number], 25 minutes (07:40) Suzanne Javier OTR/[facility]
[2019-08-23] MEDS: Insulin Aspart 300 UNITS/3 ML PEN 15 UNITS SC ×3 (08:49→17:33)
[2019-08-23] MEDS: Protein Nutritional Supplement 16 GM 1 OUNCE PACKET PO ×3 (08:50→20:04)
[2019-08-23] MEDS: Insulin Aspart 300 UNITS/3 ML PEN SC ×4 (08:50→22:24)
[2019-08-23] MEDS: Ascorbic Acid 500 MG TAB 250 MG PO ×2 (08:51→20:04)
[2019-08-23] MEDS: Apixaban 2.5 MG TAB PO (08:52)
[2019-08-23] MEDS: hydrALAZINE 25 MG TAB 50 MG PO ×4 (08:52→20:04)
[2019-08-23] MEDS: Gabapentin 300 MG CAP PO ×3 (08:52→20:04)
[2019-08-23] MEDS: oxyCODONE 5 MG TAB PO (08:52)
[2019-08-23] MEDS: amLODIPine 5 MG TAB 10 MG PO (08:52)
[2019-08-23] MEDS: Ferrous Sulfate 325 MG TAB PO ×2 (08:52→20:03)
[2019-08-23] MEDS: Pantoprazole 40 MG TABCR PO (08:53)
[2019-08-23] MEDS: predniSONE 20 MG TAB 40 MG PO (08:53)
[2019-08-23] MEDS: Venlafaxine 37.5 MG CAPCR 112.5 MG PO (08:53)
[2019-08-23] MEDS: Terazosin 2 MG CAP 4 MG PO ×2 (08:53→20:04)
[2019-08-23] MEDS: Lactobacillus Acidophilus CAP 1 CAP PO ×3 (08:53→20:04)
[2019-08-23] MEDS: Insulin Glargine 300 UNITS/3 ML PEN 15 UNITS SC (08:55)
--- NOTE | 2019-08-23 11:02 | W.PM.PROGNOT ---
Date of Service Date of service: 08/23/19 Time of Service: 11:03 Assessment and Plan Assessment and plan (1) Sacral wound: Status: Acute (2) Heart failure with preserved ejection fraction: Status: Acute (3) Diabetic gastroparesis: Status: Acute (4) Obstructive sleep apnea: Status: Chronic (5) Junctional (hamzah) bradycardia: Status: Acute (6) Hypoventilation associated with obesity syndrome: Status: Chronic (7) DVT (deep venous thrombosis): Status: Chronic (8) Decubitus ulcer of sacral region, stage 4: Status: Acute (9) Ileostomy in place: Status: Acute (10) MRSA colonization: Status: Chronic (11) Inability to get out of bed: Status: Chronic (12) Poor self care: Status: Chronic (13) Chronic bipolar disorder: Status: Chronic (14) Rheumatoid arthritis: Status: Chronic (15) Impaired mobility and ADLs: Status: Chronic (16) Cholelithiasis: Status: Chronic Subjective Subjective Interval history since last seen: I saw and examined his wound today. No interval change. He has developed a layer of proteinaceous membrane over the wound- this does need to be debirded. He is back on the ellquis last time I did. Him on Eliquis, he did bleed quite readily. We will hold the Eliquis for 48 hours and try debriding it again. He has less than 1% granulation tissue in the wound. It is clean and there is no signs of infection. But there is been no granulation tissue developing in the wound is not changing in size. He does have a significant degree of slough. I do not stop using the white foam as I think it allows fluid to accumulate in the wound. The wound is very moist. The surrounding tissues intact and there is now a large burden yeast visible. He does again have significant burden of proteinaceous debris which does need to be debrided and we will need to hold the blood thinners for this. He is on day 29 with 30 of vancomycin. I will have to check with her pharmacy. He should be done with vanco The wound VAC keeps the wound clean. However, there has been no interval healing. or contracture of the wound. This is most likely going to be a chronic wound and the goals are to keep it clean/infection free and pain management. Objective Objective Clinical Data: Vital Signs Temperature 36.6 C 08/23/19 07:29 Temperature Source Tympanic 08/23/19 07:29 Pulse 65 08/23/19 07:29 Pulse Rhythm Regular 08/23/19 00:00 Respiratory Rate 19 08/23/19 07:29 Respiratory Effort 08/23/19 00:00 Respiratory Depth Normal 08/23/19 00:00 Respiratory Pattern Normal 08/23/19 00:00 Blood Pressure 150/64 H 08/23/19 07:29 Pulse Oximetry 99 08/23/19 07:29 Oxygen Delivery Method Room Air 08/23/19 07:29 Oxygen Flow Rate 1 08/23/19 08:48 Pain Level 3 08/23/19 08:52 Comment 08/17/19 09:00 Intake & Output 08/22/19 08/22/19 08/23/19 11:59 23:59 11:59 Intake Total 0 / 0 810 / 810 Output Total 2000 / 3750 1750 / 3750 1800 / 1800 Balance -2000 / -3750 -1750 / -3750 -990 / -990 Weight 103.1 kg 105.1 kg Intake: Oral 0 / 0 810 / 810 Output: Urine 1200 / 2650 1450 / 2650 1150 / 1150 Stool 800 / 1100 300 / 1100 650 / 650 Other: Urine Color Yellow Yellow Yellow Urine Appearance Clear Clear Clear Urine Odor Normal Normal Normal Comment ALSO, SOME URINE HAD LEAKED OUT OF URINAL ONTO PT'S BED PAD ALSO. WOULD ESTIMATE SAME AMT AGAIN ON BED PAD IN URINAL. BED PAD CHANGED AND URINAL EMPTIED. CLEANSED W/WARM WIPES. Stool Size Large Large Moderate Stool Characteristics Foamy Soft Soft Voiding Methods Urinal Urinal Urinal Laboratory Results WBC 6.70 k/cumm (4.4-10.8) 08/16/19 06:25 RBC 3.53 m/cumm (4.50-6.00) L 08/16/19 06:25 Hgb 8.4 g/dL (13.5-17.5) L 08/16/19 06:25 Hct 27.6 % (40.0-50.0) L 08/16/19 06:25 MCV 78.2 fL (80-95) L 08/16/19 06:25 MCH 23.8 pg (27.0-33.0) L 08/16/19 06:25 MCHC 30.4 g/dL (32.0-36.0) L 08/16/19 06:25 RDW 21.0 % (11.8-14.1) H 08/16/19 06:25 Plt Count 226 x1000/uL (130-400) 08/16/19 06:25 MPV 9.7 fL (8.0-11.0) 08/16/19 06:25 Immature Gran % 3.6 % 08/16/19 06:25 Neutrophils % 77.3 08/16/19 06:25 Lymphocytes % 12.4 08/16/19 06:25 Monocytes % 5.7 08/16/19 06:25 Eosinophils % 0.9 08/16/19 06:25 Basophils % 0.1 08/16/19 06:25 Absolute Neutrophils 5.18 k/cumm (1.2-6.7) 08/16/19 06:25 Absolute Lymphocytes 0.83 k/cumm (1.2-3.4) L 08/16/19 06:25 Absolute Monocytes 0.38 k/cumm (0.11-0.7) 08/16/19 06:25 Absolute Eosinophils 0.06 k/cumm (0.0-0.7) 08/16/19 06:25 Absolute Basophils 0.01 k/cumm (0.0-0.2) 08/16/19 06:25 Differential Comment Rbc morph reviewed 08/16/19 06:25 RBC Morphology See below 08/16/19 06:25 Polychromasia Present 08/16/19 06:25 Hypochromasia 3+ 08/16/19 06:25 Poikilocytosis 2+ 08/16/19 06:25 Anisocytosis 2+ 08/16/19 06:25 Microcytosis 3+ 08/16/19 06:25 Ovalocytes 2+ 08/16/19 06:25 Sodium 136 mmol/L (136-145) 08/15/19 06:25 Potassium 4.7 mmol/L (3.5-5.1) 08/15/19 06:25 Chloride 106 mmol/L (98-107) 08/15/19 06:25 Carbon Dioxide 20.3 mmol/L (21.0-32.0) L 08/15/19 06:25 Anion Gap 9.7 mmol/L (3-11) 08/15/19 06:25 BUN 66 mg/dL (7-18) H 08/15/19 06:25 Creatinine 1.85 mg/dL (0.70-1.30) H 08/16/19 21:50 Estimated GFR/1.73 m2 37.48 (mL/min/1.73m2) 08/16/19 21:50 Glucose 397 mg/dL (74-106) H D 08/17/19 21:08 Calcium 9.1 mg/dL (8.5-10.1) 08/15/19 06:25 Magnesium 1.8 mg/dL (1.8-2.4) 08/15/19 06:25 Iron 30 ug/dL (65-175) L 08/16/19 06:25 TIBC 249 ug/dL (250-450) L 08/16/19 06:25 Transferrin % Sat 12 % (20-55) L 08/16/19 06:25 Albumin 2.8 g/dL (3.4-5.0) L 08/16/19 06:25 Vancomycin Trough 16.4 ug/mL (10.0-20.0) 08/20/19 09:18
[2019-08-23] MEDS: Furosemide 40 MG/4 ML VIAL IVP (11:07)
[2019-08-23] MEDS: Normal Saline Flush 10 ML SYR IVP ×2 (11:08→22:23)
--- NOTE | 2019-08-23 11:51 | WOUNDCARE ---
Wound Care Report wound vac running hours reset to zero at this time (1100 on 08/23/19 ) to help keep track of actual run time.
--- NOTE | 2019-08-23 15:50 | CHAPLAIN ---
I visited with Brendan a while before lunch today. He said his weekend was okay. Things are a little slower in the weekend, but not much changes day to day here, he said. He is aware that his wound is not healing, not enough to speak of he said. Brendan talked about the property in [place] he is interested in buying. It belongs to a former [facility] ICU nurse. He shared more about his childhood, telling me about growing up in [place], [place]. He was given given a trailer and property on one said of the road that divided the property, and his two sisters and two brothers were given over 100 acres on the other side of the road. The sisters bought out the brothers, then one sister . Brendan talked about going to school [employer] and high school [employer]. [email or web address]
[2019-08-23 18:25] VITALS: BP 152/73; PULSE 85; RESP 19; TEMP 37.1; O2SAT 97
[2019-08-23] MEDS: Normal Saline Flush 10 ML SYR 20 ML IVP (20:05)
[2019-08-23] MEDS: risperiDONE 0.5 MG TAB 1.5 MG PO (22:23)
[2019-08-23] MEDS: Levothyroxine 25 MCG TAB 12.5 MCG PO (22:23)
[2019-08-23] MEDS: Insulin Glargine 300 UNITS/3 ML PEN 50 UNITS SC (22:25)
[2019-08-23] MEDS: VANCOMYCIN 1,000 MG in Normal Saline 250 ML 166.66 MG IV (22:26)
[2019-08-24] MEDS: Calcium 600mg/Vit D 200U TAB 1 TAB PO ×2 (06:06→17:46)
[2019-08-24 07:37] VITALS: BP 173/72; PULSE 67; RESP 19; TEMP 36.3; O2SAT 98
[2019-08-24] MEDS: oxyCODONE 5 MG TAB PO (08:44)
[2019-08-24] MEDS: amLODIPine 5 MG TAB 10 MG PO (08:45)
[2019-08-24] MEDS: Acetaminophen 325 MG TAB 650 MG PO (08:46)
[2019-08-24] MEDS: predniSONE 20 MG TAB 40 MG PO (08:46)
[2019-08-24] MEDS: Gabapentin 300 MG CAP PO ×3 (08:46→19:46)
[2019-08-24] MEDS: Venlafaxine 37.5 MG CAPCR 112.5 MG PO (08:46)
[2019-08-24] MEDS: Terazosin 2 MG CAP 4 MG PO ×2 (08:46→19:45)
[2019-08-24] MEDS: Ascorbic Acid 500 MG TAB 250 MG PO ×2 (08:47→19:46)
[2019-08-24] MEDS: hydrALAZINE 25 MG TAB 50 MG PO ×4 (08:47→19:46)
[2019-08-24] MEDS: Protein Nutritional Supplement 16 GM 1 OUNCE PACKET PO ×3 (08:49→19:45)
[2019-08-24] MEDS: Pantoprazole 40 MG TABCR PO (08:49)
[2019-08-24] MEDS: Lactobacillus Acidophilus CAP 1 CAP PO ×3 (08:49→19:46)
[2019-08-24] MEDS: Ferrous Sulfate 325 MG TAB PO ×2 (08:49→19:46)
[2019-08-24] MEDS: Insulin Aspart 300 UNITS/3 ML PEN SC ×4 (08:52→21:36)
[2019-08-24] MEDS: Insulin Aspart 300 UNITS/3 ML PEN 15 UNITS SC ×3 (08:53→16:58)
[2019-08-24] MEDS: Insulin Glargine 300 UNITS/3 ML PEN 15 UNITS SC (08:57)
[2019-08-24] MEDS: Normal Saline Flush 10 ML SYR 20 ML IVP ×2 (09:12→19:45)
--- NOTE | 2019-08-24 09:31 | OTTR_ITS ---
Date of service: 08/24/19 Time of Service: 07:15 Occupational Therapy Notes Occupational Therapy Inpatient Treatment Note Date: 08/24/19 PRECAUTIONS: Fall, Contact precautions, FULL SUBJECTIVE: Pt was lying in bed when OT arrived. He states that his edema in (R) arm is improving he notes that he feels that his arms are getting stronger but feel slightly sore today. OBJECTIVE: PAIN: c/o pain in sacral area due to wound Therapeutic Exercise 65096 x2: OT educated and trained pt in (B) UE ROM exercises with isometric strengthening and dynamic functional ROM with min vc provided throughout for muscle facilitation. Pt performed (B) shoulder flexion, abduction, adduction, elbow flexion and extension 20x each with a 10 second break between sets of 10, to facilitate and maintain ROM of pts (B) UE required for performance and (I) in his ADL/IADL routines. OT progressed pts UE strengthening to include yellow theraband. Post session pt was able to lift actively (L) UE above head without (A) and touch his hair. ASSESSMENT/PLAN: Progression of therex program as well as functional (I) to pts baseline level of function for ADL/IADL routines. Pts edema is better in his (R) UE and he is demonstrating increased ROM to his (B) UE as well as increased functional activity tolerance with use of his (B) UE. He has been receptive to education and training. OT will monitor pts response to todays session and progress accordingly. TREATMENT CODES/TIME: [id number], 24 minutes (07:15) Suzanne Javier OTR/[facility]
--- NOTE | 2019-08-24 11:40 | W.PM.PROGNOT ---
Date of Service Date of service: 08/24/19 Time of Service: 16:15 Assessment and Plan Assessment and plan (1) Decubitus ulcer, stage 4 with infection: Status: Chronic Assessment and plan: Gen Surg planning on debridement tomorrow, 08/24. Eliquis on hold. Wound vac in place. Upon last assessment, gen surg noted no wound contraction or granulation. + proteinacious slough in wound bed. (2) MRSA bacteremia: Status: Acute Assessment and plan: Finished course of Vancomycin WBC count normal. No F/C. 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 Consistent carb diet and monitor. (4) CKD (chronic kidney disease): Status: Chronic Assessment and plan: Creatinine 1.85. Addison of 1.32 on 08/04. S/p lasix. Monitor. Avoid nephrotoxic agents. Qualifiers: Chronic kidney disease stage: unspecified stage Qualified Code(s): N18.9 - Chronic kidney disease, unspecified (5) Hypertension: Status: Chronic Assessment and plan: SBP 145-173 today. On amlodipine 10 mg daily and hydralazine 50 mg po QID Monitor Qualifiers: Hypertension type: essential hypertension Qualified Code(s): I10 - Essential (primary) hypertension (6) Obstructive sleep apnea: Status: Chronic Assessment and plan: Cont use of Trilogy (7) Anemia: Status: Chronic Assessment and plan: Hgb 8.4 / stable. Fe low at 30. Venofer 300mg IV today. Monitor Qualifiers: Anemia type: due to chronic kidney disease Chronic kidney disease stage: stage 4 (severe) Qualified Code(s): N18.4 - Chronic kidney disease, stage 4 (severe); D63.1 - Anemia in chronic kidney disease Subjective Subjective Patient reports: no new complaints and voiding w/o difficulty; denies nausea and fever Exam Narrative Exam Narrative: He continues to be compliant with his Trilogy. Const General: cooperative Nutritional Appearance: obese Orientation: alert and oriented x3 Resp Effort & Inspection: normal respiratory effort Auscultation: clear to auscultation bilaterally and diminished lung sounds GI Inspection: obesity Palpation: soft and nontender Auscultation: normal bowel sounds Extrem General: normal to inspection, no pedal edema and no calf tenderness bilaterally Objective Objective Clinical Data: Vital Signs Temperature 36.3 C L 06/30/20 07:37 Temperature Source Temporal Artery Scan 08/24/19 07:37 Pulse 67 08/24/19 07:37 Pulse Rhythm Regular 08/24/19 09:57 Respiratory Rate 19 08/24/19 07:37 Respiratory Effort Non-Labored 08/24/19 09:57 Respiratory Depth Normal 08/24/19 09:57 Respiratory Pattern Normal 08/24/19 09:57 Blood Pressure 173/72 H 08/24/19 07:37 Pulse Oximetry 98 08/24/19 07:37 Oxygen Delivery Method Room Air 08/24/19 07:37 Oxygen Flow Rate 1 08/24/19 09:09 Pain Level 4 08/24/19 08:46 Comment 08/17/19 09:00 Intake & Output 08/23/19 08/23/19 08/24/19 11:59 23:59 11:59 Intake Total 810 / 1560 750 / 1560 900 / 900 Output Total 2300 / 4050 1750 / 4050 2225 / 2225 Balance -1490 / -2490 -1000 / -2490 -1325 / -1325 Weight 105.1 kg 103.5 kg Intake: IV 60 / 60 Oral 810 / 1560 750 / 1560 840 / 840 Output: Urine 1450 / 3200 1750 / 3200 1925 / 1925 Stool 850 / 850 300 / 300 Other: Urine Color Yellow Yellow Yellow Urine Appearance Clear Clear Clear Urine Odor Normal Normal None Comment Pt uses urinal in bed Stool Size Moderate Stool Characteristics Soft Voiding Methods Urinal Urinal Urinal Laboratory Results WBC 6.70 k/cumm (4.4-10.8) 08/16/19 06:25 RBC 3.53 m/cumm (4.50-6.00) L 08/16/19 06:25 Hgb 8.4 g/dL (13.5-17.5) L 08/16/19 06:25 Hct 27.6 % (40.0-50.0) L 08/16/19 06:25 MCV 78.2 fL (80-95) L 08/16/19 06:25 MCH 23.8 pg (27.0-33.0) L 08/16/19 06:25 MCHC 30.4 g/dL (32.0-36.0) L 08/16/19 06:25 RDW 21.0 % (11.8-14.1) H 08/16/19 06:25 Plt Count 226 x1000/uL (130-400) 08/16/19 06:25 MPV 9.7 fL (8.0-11.0) 08/16/19 06:25 Immature Gran % 3.6 % 08/16/19 06:25 Neutrophils % 77.3 08/16/19 06:25 Lymphocytes % 12.4 08/16/19 06:25 Monocytes % 5.7 08/16/19 06:25 Eosinophils % 0.9 08/16/19 06:25 Basophils % 0.1 08/16/19 06:25 Absolute Neutrophils 5.18 k/cumm (1.2-6.7) 08/16/19 06:25 Absolute Lymphocytes 0.83 k/cumm (1.2-3.4) L 08/16/19 06:25 Absolute Monocytes 0.38 k/cumm (0.11-0.7) 08/16/19 06:25 Absolute Eosinophils 0.06 k/cumm (0.0-0.7) 08/16/19 06:25 Absolute Basophils 0.01 k/cumm (0.0-0.2) 08/16/19 06:25 Differential Comment Rbc morph reviewed 08/16/19 06:25 RBC Morphology See below 08/16/19 06:25 Polychromasia Present 08/16/19 06:25 Hypochromasia 3+ 08/16/19 06:25 Poikilocytosis 2+ 08/16/19 06:25 Anisocytosis 2+ 08/16/19 06:25 Microcytosis 3+ 08/16/19 06:25 Ovalocytes 2+ 08/16/19 06:25 Sodium 136 mmol/L (136-145) 08/15/19 06:25 Potassium 4.7 mmol/L (3.5-5.1) 08/15/19 06:25 Chloride 106 mmol/L (98-107) 08/15/19 06:25 Carbon Dioxide 20.3 mmol/L (21.0-32.0) L 08/15/19 06:25 Anion Gap 9.7 mmol/L (3-11) 08/15/19 06:25 BUN 66 mg/dL (7-18) H 08/15/19 06:25 Creatinine 1.85 mg/dL (0.70-1.30) H 08/16/19 21:50 Estimated GFR/1.73 m2 37.48 (mL/min/1.73m2) 08/16/19 21:50 Glucose 397 mg/dL (74-106) H D 08/17/19 21:08 Calcium 9.1 mg/dL (8.5-10.1) 08/15/19 06:25 Magnesium 1.8 mg/dL (1.8-2.4) 08/15/19 06:25 Iron 30 ug/dL (65-175) L 08/16/19 06:25 TIBC 249 ug/dL (250-450) L 08/16/19 06:25 Transferrin % Sat 12 % (20-55) L 08/16/19 06:25 Albumin 2.8 g/dL (3.4-5.0) L 08/16/19 06:25 Vancomycin Trough 16.4 ug/mL (10.0-20.0) 08/20/19 09:18
--- NOTE | 2019-08-24 12:15 | WOUNDCONS ---
- If Service Date Differs Date of service: 08/24/19 Time of Service: 11:00 Wound Initial Evaluation Narrative: reviewing progress on patient s wound of the left plantar aspect. Patient consents to the procedure - Wound Left Foot Wound Type: Diabetic Ulcer Wound General Appearance: Draining, Unapproximated Wound Bed Greatest Portion: Shiny (greatest partof the woundbed is white, avascular tissue) Wound Length: 1.1 cm (larger than previous ) Wound Width: 1.3 cm (greater than previous) Wound Depth: 0.3 cm (unchanged) Wound Drainage Amount: Minimal Wound Drainage Description: Bloody Wound Topical Solution/Irrigant: Saline Irrigant Wound Debridement Method: Sharps, Mechanical Wound Debridement Result: Healthy Tissue Revealed Wound Debridement Amount of Tissue Removed: Minimal - Circulation, Sensation, Motion Edema Degree: 1+ wound bed and carson skin was cleaned with saline and debrisoft lolly. Peer nurse did a conservative sharps debridement at the bed side, in which macerated tissue was removed revealing some healthy tissue. Generally, wound has not shown improvement so new reccomendation will be made to the provider - Treatment/Dressing Change Topicals/Ointments: Medihoney Cleanse With: Saline Dressing Types: Gauze, Kerlix (Gauze Roll), Saline Moistened Gauze - Recomendation Recomendation:: Cleanse wound with NS. , then pat dry. Apply skin prep to the carson wound skin. Apply 3 mm. thickness of Medihoney to the wound base. apply a folded saline moistened 2x2 over the Medihoney. Cover with a folded 4x4. Secure with Kerlix, Medipore tape, then cover with stockinette. Change every 3 days or PRN if soiled or dislodged. Physcian/Nurse Practioner Notified: Yes (Zeeshan Hendrickson MD) Treatment Time - For: For:: 1 week (review in 7 days)
[2019-08-24] MEDS: IRON SUCROSE COMPLEX 300 MG in Normal Saline 250 ML 167 MG IVPB (14:22)
[2019-08-24 16:05] VITALS: BP 145/62; PULSE 83; RESP 18; TEMP 36.4; O2SAT 96
[2019-08-24] MEDS: Levothyroxine 25 MCG TAB 12.5 MCG PO (21:37)
[2019-08-24] MEDS: risperiDONE 0.5 MG TAB 1.5 MG PO (21:38)
[2019-08-24] MEDS: Insulin Glargine 300 UNITS/3 ML PEN 50 UNITS SC (21:47)
[2019-08-24 23:33] VITALS: BP 117/72; PULSE 79; RESP 19; TEMP 36.6; O2SAT 99
[2019-08-24] MEDS: Melatonin 3 MG TAB PO (23:48)
[2019-08-25] MEDS: Calcium 600mg/Vit D 200U TAB 1 TAB PO ×2 (06:14→18:02)
[2019-08-25 08:08] VITALS: BP 154/77; PULSE 71; RESP 18; TEMP 36.6; O2SAT 99
[2019-08-25] MEDS: amLODIPine 5 MG TAB 10 MG PO (08:13)
[2019-08-25] MEDS: Terazosin 2 MG CAP 4 MG PO ×2 (08:13→19:51)
[2019-08-25] MEDS: Protein Nutritional Supplement 16 GM 1 OUNCE PACKET PO ×3 (08:13→19:51)
[2019-08-25] MEDS: Acetaminophen 325 MG TAB 650 MG PO ×2 (08:14→13:53)
[2019-08-25] MEDS: hydrALAZINE 25 MG TAB 50 MG PO ×4 (08:14→19:50)
[2019-08-25] MEDS: predniSONE 20 MG TAB 40 MG PO (08:14)
[2019-08-25] MEDS: Venlafaxine 37.5 MG CAPCR 112.5 MG PO (08:15)
[2019-08-25] MEDS: Ascorbic Acid 500 MG TAB 250 MG PO ×2 (08:15→19:51)
[2019-08-25] MEDS: Gabapentin 300 MG CAP PO ×3 (08:15→19:50)
[2019-08-25] MEDS: Pantoprazole 40 MG TABCR PO (08:15)
[2019-08-25] MEDS: Ferrous Sulfate 325 MG TAB PO ×2 (08:16→19:51)
[2019-08-25] MEDS: Lactobacillus Acidophilus CAP 1 CAP PO ×3 (08:16→19:51)
[2019-08-25] MEDS: Normal Saline Flush 10 ML SYR 20 ML IVP ×2 (08:17→19:51)
[2019-08-25] MEDS: Insulin Aspart 300 UNITS/3 ML PEN SC ×4 (08:18→22:06)
[2019-08-25] MEDS: Insulin Aspart 300 UNITS/3 ML PEN 18 UNITS SC ×3 (08:20→17:02)
--- NOTE | 2019-08-25 08:21 | INDS_ITS ---
Date of service: 08/25/19 PT Notes Visit Reasons: MRSA BACTEREMIA, SACRAL DECUBITUS ULCER STG 4, GAS Inpatient Physical Therapy Discharge Summary Dates: 08/25/2019 Dates of Service: 08/09/2019 through 08/22/2019 Referring Doctor: Pablo Cobb MD PT Orders: PT CONSULT: 59-year-old M, bedbound with decubitus ulcer, work to increase mobility Precautions: Contact. Fall. Activity as tolerated. Patient Profile/Admitting Diagnosis: 59-year-old male with extensive medical history as listed below now with diagnosis MRSA bacteremia and stage IV sacral decubitus status post debridement on 07/25/2019 and 07/26/2019 with referral to physical therapy to address mobility impairments, weakness, and impaired activity tolerance. PMHX: Medical History Acromegaly (Chronic) Acute on chronic kidney failure (Resolved) Adrenal insufficiency (Chronic) Ambulatory dysfunction (Chronic) Anemia (Chronic) Atrial flutter, paroxysmal (Chronic) Back pain (Chronic 06/21/13) CAD (coronary artery disease) (Chronic) Cardiopulmonary arrest with successful resuscitation (Resolved) Cholelithiasis (Chronic) Chronic anxiety (Chronic) Chronic bipolar disorder (Chronic) a. With history of psychosis. Chronic cholecystitis (Chronic) Chronic insomnia (Chronic) Chronic pain (Chronic) On both Methadone and Fentanyl as well as Ultram and Naproxen. CKD (chronic kidney disease) (Chronic) Complicated UTI (urinary tract infection) (Resolved) Diabetes mellitus (Chronic) Diabetic foot ulcer (Chronic) Diabetic ulcer of toe associated with diabetes mellitus due to underlying condition, with bone involvement without evidence of necrosis (Inactive) 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 (Resolved) Dyslipidemia (Chronic) Elevated troponin I level (Resolved) Endocarditis due to Staphylococcus (Resolved) Heme positive stool (Resolved) Hemorrhagic cystitis (Chronic) Hyperkalemia (Resolved) Hypertension (Chronic) Hypomagnesemia (Chronic) Hypothyroidism (Chronic) Impaired mobility and ADLs (Chronic) Inability to get out of bed (Chronic 06/21/13) Lactic acidosis (Resolved) MRSA bacteremia (Resolved) MRSA colonization (Chronic) Obesity (Chronic) a. Obesity though he has had significant weight loss since last seen. Osteoarthritis of both knees (Chronic) Severe. a. [id number] bilateral knees. 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 2 diabetes mellitus (Resolved) Palliative care encounter (Chronic) Dr. Horowitz Pedal edema (Chronic) Poor self care (Chronic 06/21/13) Poorly controlled type 2 diabetes mellitus with circulatory disorder (Chronic) Presence of IVC filter (Acute) Pulmonary hypertension (Chronic) Rheumatoid arthritis (Chronic) Sepsis (Resolved) Septic arthritis of elbow, right (Inactive) Toxic metabolic encephalopathy (Resolved) Toxic metabolic encephalopathy (Resolved) Ulcerative colitis (Chronic) UTI (urinary tract infection) (Resolved) UTI (urinary tract infection) due to Enterococcus (Resolved) Surgical History Arthroplasty of knee (Resolved 03/18/12) irrigation and lavage right Fracture, Open Treatment (Resolved) 06/06/17-[facility] [place] S/P ORIF RIGHT DISTAL HUMERUS FRACTURE History of insertion of T-tube into biliary tract (Chronic) S/P colectomy (Chronic) Social History/Home Situation: Long-term resident of the [facility]. Patient has had multiple acute care admissions in the past several years. Patient reports that he has not ambulated at the SNF prior to this admission. Equipment Owned/DME: LTC resident Subjective: NC Objective: General Observation: NT Mental Status: NT Pain: NT ROM: Right Upper Extremity: Shoulder flexion allows 45 degrees. Elbow motion allows WFL. Weak but functional. He has partial opening and partial closing of the hand. Left Upper Extremity: Shoulder flexion allows 50 degrees. Elbow motion WFL. Weak but functional. He has partial opening and partial closing of the hand. Right Lower Extremity: Hip flexors allows less than 90 degrees. Right knee -20 degrees extension. Knee flexion 22 90 degrees. Ankle dorsiflexion allows 0 degrees. Left Lower Extremity: Hip flexors less than 90 degrees. Left knee -10 degrees extension. Knee flexion -10 to 90 degrees. Ankle dorsiflexion to 0 degrees. Strength: Right Upper Extremity: Shoulder flexors 3-/5. Shoulder abductors 3-/5. Elbow flexors 3-/5. Elbow extensors 3-/5. Left Upper Extremity: Shoulder flexors 3-/5. Shoulder abductors 3-/5. Elbow flexors 3-/5. Elbow extensors 3-/5. Right Lower Extremity: Hip flexors 3-/5. Hip abductors 3-/5. Knee flexors 3-/5. Knee extensors 2-/5. Ankle dorsiflexors 1/5. Ankle plantarflexors 1/5. Left Lower Extremity:Hip flexors 3-/5. Hip abductors 3-/5. Knee flexors 3-/5. Knee extensors 2-/5. Ankle dorsiflexors 1/5. Ankle plantarflexors 1/5. Bed Mobility/Transfers: Rolling to minimal assist of 2 Supine to sit modified independent Sit to supine modified independent Sit to stand minimal assist of 2 Stand to sit minimal assist of 2 Bed to chair NT Chair to bed NT Gait: Patient has refused ambulation activity and only tolerated sidestepping at edge of bed the most since work with him started. Balance: Static Sitting: Good Dynamic Sitting: Good Static Standing: NT Dynamic Standing: NT Assessment: Brendan is at the highest functional level at this time. Brendan continues to demonstrate functional decline requiring assist of 2 people for all sit<>stand activity. His motivation is low. Sit to stand activity has been limited by complaints of B knee pain. He reports that he is at his prior level of function and that the staff help him with everything. His stage 4 sacral ulcer has stayed the same with no measurable improvements observed. He has not been ambulatory. He is currently limited with generalized body weakness, pain in bilateral knees, and fatigue resulting from admitting diagnoses. Patient continues to present with clinical signs and symptoms consistent with current/admitting diagnoses that have resulted to mobility limitations, gait instability, generalized weakness, and impairment of motor control as demonstrated by the following impairment level findings: 1. Decreased strength to B LE major muscle groups 2. Impaired sitting/standing balance 3. Impaired activity tolerance 4. Limitation of joint range of motion in BUE/LE Impairments are cotniuing to contribute to the following functional limitations: 1. Dependent bed mobility skills 2. Increased dependence with transfers 3. Inability to safely ambulate without assistive device and physical assistance 4. Increase completion time for mobility ADL performance 5. Increased fall risk 6. Inability to negotiate steps alone safely Goals: Goals X1 week 1. Supine-Sit CGA MET 2. Sit-Supine CGA MET 3. Sit-Stand contact-guard assist NOT MET 4. Stand-Sit contact-guard assist NOT MET 5. Bed-Chair contact-guard assist NOT MET 6. Chair-Bed contact-guard assist NOT MET 7. Minimal assist gait on level surface with use of least restrictive device for at least 15 feet without report of pain nor dyspnea NOT MET 8. Fair static and dynamic standing balance/tolerance NOT MET DISCHARGE RECOMMENDATIONS: Return to SNF when medically cleared to do so with continued skilling for physical therapy to facilitate achievement of highest functional mobility level. TREATMENT CODE/TIME: NC Thank you very much for this referral. Nona Pena PT, DPT, CLT [facility] at [place], [place]
[2019-08-25] MEDS: Insulin Glargine 300 UNITS/3 ML PEN 15 UNITS SC (09:43)
--- NOTE | 2019-08-25 10:42 | OTTR_ITS ---
Date of service: 08/25/19 Time of Service: 08:35 Occupational Therapy Notes Occupational Therapy Inpatient Treatment Note Date: 08/25/19 PRECAUTIONS: Fall, Contact precautions, FULL SUBJECTIVE: Pt was sitting on side of bed when OT arrived. He was agreeable to OT session and reports that his (B) arms feel so much better than they were initially. OBJECTIVE: PAIN: c/o pain in sacral area due to wound Therapeutic Exercise [id number] x2: OT educated and trained pt in (B) UE ROM exercises with isometric strengthening and dynamic functional ROM with min vc provided throughout for muscle facilitation. Pt performed (B) shoulder flexion, abduction, adduction, elbow flexion and extension 20x each with a 10 second break between sets of 10, to facilitate and maintain ROM of pts (B) UE required for performance and (I) in his ADL/IADL routines. OT had pt use yellow theraband for (B) UE strengthening. Pt has been able to use his (B) UE more due to strengthening. ASSESSMENT/PLAN: Progression of therex program as well as functional (I) to pts baseline level of function for ADL/IADL routines. He has been receptive to education and training and is demonstrating increased AROM of (B)UE at this time. Next session OT and pt will work on facilitiating (B) hand/UE use for functional ADLs/IADLs. OT will monitor pts response to todays session and progress accordingly. TREATMENT CODES/TIME: [id number], 15 minutes (08:35) Suzanne Javier OTR/[facility]
[2019-08-25] MEDS: oxyCODONE 5 MG TAB PO (11:42)
[2019-08-25] MEDS: Normal Saline Flush 10 ML SYR IVP (11:43)
[2019-08-25] MEDS: HYDROmorphone 2 MG/ML VIAL 1 MG IVP (12:18)
[2019-08-25 15:08] VITALS: BP 149/68; PULSE 81; RESP 20; TEMP 36.6; O2SAT 98
--- NOTE | 2019-08-25 15:12 | W.PM.PROGNOT ---
Date of Service Date of service: 08/25/19 Time of Service: 13:15 Assessment and Plan Assessment and plan (1) Sacral wound: Status: Acute Assessment and plan: -does not require further abx -will check culture is see if colonized w/ MRSA. Clinically no signs of infection and does not require further antibiotics. We will continue with wound VAC therapy for another 2 weeks. W/ Just using the black foam there does appear to be islands of granulation tissue develop. We will continue wound VAC for another 2 weeks. If there does appear to be granulation tissue forming but I would recommend continuing this therapy. The occlusive dressing associated with a wound VAC does appear to keep urine out of the wound. Without this he does get urine into the wound. -If there does not appear to be any initial improvement within the wound in the next 2 weeks, then I would forego VAC therapy and continue to use wet-to-dry. -He does not get out of bed at this point. The nurses have to turn him in bed. He is mobility is actually decreased during this hospitalization. He has longstanding problems from poorly controlled diabetes mellitus. Including severe peripheral vascular disease, diabetic nephropathy, and gastroparesis. (2) Heart failure with preserved ejection fraction: Status: Acute (3) Diabetic gastroparesis: Status: Acute Assessment and plan: Continue the erythromycin as ordered in hospital. This appears to be working for him at this time. He will eventually develop a resistance to this and will become ineffective for him. He cannot tolerate Reglan because of his renal disease. (4) Obstructive sleep apnea: Status: Chronic (5) Junctional (hamzah) bradycardia: Status: Acute (6) Ventricular escape rhythm: Status: Acute (7) Hypoventilation associated with obesity syndrome: Status: Chronic (8) History of DVT (deep vein thrombosis): Status: Chronic (9) Chronic iron deficiency anemia: Status: Acute (10) Old non-ST elevation myocardial infarction (NSTEMI): Status: Acute (11) Hep C w/o coma, chronic: Status: Acute (12) Decubitus ulcer of sacral region, stage 4: Status: Acute (13) S/P proctocolectomy: Status: Acute (14) Ileostomy in place: Status: Acute (15) MRSA colonization: Status: Chronic (16) Pulmonary hypertension: Status: Acute (17) CHF (congestive heart failure): Status: Chronic (18) Diabetic foot ulcer: Status: Chronic Assessment and plan: The ulcer on his left lower extremity when he had the hematoma is healed over and no longer wears a dressing. Although the skin will stay fragile and will be more susceptible to injury. He also came into the hospital with a neuropathic/diabetic foot ulcer. This was debrided when he initially came into the hospital. It was not infected. This ulcer is been longstanding in nature. He just received 3 days of IV Vanco. He has been tested for C. difficile and this is negative. 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 insulin use: with oil and gas superintendent use Diabetes mellitus type: type 2 Qualified Code(s): E11.42 - Type 2 diabetes mellitus with diabetic polyneuropathy; Z79.4 - patient accounts clerk (current) use of insulin (20) Atrial flutter, paroxysmal: Status: Chronic (21) Ambulatory dysfunction: Status: Chronic (22) Pulmonary hypertension: Status: Chronic (23) Chronic cholecystitis: Status: Chronic (24) Adrenal insufficiency: Status: Chronic (25) Poorly controlled type 2 diabetes mellitus with circulatory disorder: Status: Chronic (26) CKD (chronic kidney disease): Status: Chronic Qualifiers: Chronic kidney disease stage: unspecified stage Qualified Code(s): N18.9 - Chronic kidney disease, unspecified (27) Hypothyroidism: Status: Chronic Qualifiers: Hypothyroidism type: acquired Qualified Code(s): E03.9 - Hypothyroidism, unspecified (28) Obesity: Status: Chronic (29) Inability to get out of bed: Status: Chronic (30) Poor self care: Status: Chronic (31) Chronic bipolar disorder: Status: Chronic (32) CAD (coronary artery disease): Status: Chronic (33) Dyslipidemia: Status: Chronic (34) Rheumatoid arthritis: Status: Chronic (35) Osteoarthritis of both knees: Status: Chronic (36) Cholelithiasis: Status: Chronic (37) Impaired mobility and ADLs: Status: Chronic (38) Anemia: Status: Chronic Qualifiers: Anemia type: due to chronic kidney disease Chronic kidney disease stage: stage 4 (severe) Qualified Code(s): N18.4 - Chronic kidney disease, stage 4 (severe); D63.1 - Anemia in chronic kidney disease (39) Hemorrhagic cystitis: Status: Chronic Subjective Subjective Interval history since last seen: sharply debrided. ellequis was held. pt still bled profusely. wound 12x7cm. So it is vijay some. pt medical condition remains unchanged. Culture of the wound re- taken. although there are no signs of overt infection . Medically he remains unchanged. He is having regular BM. No vomiting. The EES is working for the [employer]. 30 minutes spent with the patient today. In doing dressing change and coordinating care. Exam Skin Other: Wound location sacra. Size: Width 12 cm Length 7cm Depth 3 cm Undermining: he does have flaps and we need to make sure the black foam is under these. the white foam and other modalities make the wound bed slimy. Since we are only using the black foam. Wound Base: clean 1% granulaton. exposed tendon (minimal) adn muscle. Surrounding Tissue: intact. minimal recurrent yeast. Pain moderate. Pt is medicted prior to dressing changes. Signs of infection :resolved Abx: completed vanco days Objective Objective Clinical Data: Vital Signs Temperature 36.6 C 08/25/19 15:08 Temperature Source Tympanic 08/25/19 15:08 Pulse 81 08/25/19 15:08 Pulse Rhythm Regular 08/25/19 08:43 Respiratory Rate 20 08/25/19 15:08 Respiratory Effort Non-Labored 08/25/19 08:43 Respiratory Depth Normal 08/25/19 08:43 Respiratory Pattern Normal 08/25/19 08:43 Blood Pressure 149/68 H 08/25/19 15:08 Pulse Oximetry 98 08/25/19 15:08 Oxygen Delivery Method Room Air 08/25/19 15:08 Oxygen Flow Rate 0 08/25/19 15:08 Pain Level 0 08/25/19 15:08 Comment 08/17/19 09:00 Intake & Output 08/24/19 08/25/19 08/25/19 23:59 11:59 23:59 Intake Total 1180 / 2080 450 / 900 450 / 900 Output Total 1925 / 4400 1750 / 2450 700 / 2450 Balance -745 / -2320 -1300 / -1550 -250 / -1550 Weight 103.9 kg Intake: Oral 1179 450 / 900 450 / 900 Output: Urine 1000 / 3175 1200 / 1500 300 / 1500 Stool 925 / 1225 550 / 950 400 / 950 Other: Urine Color Yellow Yellow Yellow Urine Appearance Clear Clear Clear Urine Odor Normal Normal Normal Voiding Methods Urinal Urinal Urinal Laboratory Results WBC 6.70 k/cumm (4.4-10.8) 08/16/19 06:25 RBC 3.53 m/cumm (4.50-6.00) L 08/16/19 06:25 Hgb 8.4 g/dL (13.5-17.5) L 08/16/19 06:25 Hct 27.6 % (40.0-50.0) L 08/16/19 06:25 MCV 78.2 fL (80-95) L 08/16/19 06:25 MCH 23.8 pg (27.0-33.0) L 08/16/19 06:25 MCHC 30.4 g/dL (32.0-36.0) L 08/16/19 06:25 RDW 21.0 % (11.8-14.1) H 08/16/19 06:25 Plt Count 226 x1000/uL (130-400) 08/16/19 06:25 MPV 9.7 fL (8.0-11.0) 08/16/19 06:25 Immature Gran % 3.6 % 08/16/19 06:25 Neutrophils % 77.3 08/16/19 06:25 Lymphocytes % 12.4 08/16/19 06:25 Monocytes % 5.7 08/16/19 06:25 Eosinophils % 0.9 08/16/19 06:25 Basophils % 0.1 08/16/19 06:25 Absolute Neutrophils 5.18 k/cumm (1.2-6.7) 08/16/19 06:25 Absolute Lymphocytes 0.83 k/cumm (1.2-3.4) L 08/16/19 06:25 Absolute Monocytes 0.38 k/cumm (0.11-0.7) 08/16/19 06:25 Absolute Eosinophils 0.06 k/cumm (0.0-0.7) 08/16/19 06:25 Absolute Basophils 0.01 k/cumm (0.0-0.2) 08/16/19 06:25 Differential Comment Rbc morph reviewed 08/16/19 06:25 RBC Morphology See below 08/16/19 06:25 Polychromasia Present 08/16/19 06:25 Hypochromasia 3+ 08/16/19 06:25 Poikilocytosis 2+ 08/16/19 06:25 Anisocytosis 2+ 08/16/19 06:25 Microcytosis 3+ 08/16/19 06:25 Ovalocytes 2+ 08/16/19 06:25 Sodium 136 mmol/L (136-145) 08/15/19 06:25 Potassium 4.7 mmol/L (3.5-5.1) 08/15/19 06:25 Chloride 106 mmol/L (98-107) 08/15/19 06:25 Carbon Dioxide 20.3 mmol/L (21.0-32.0) L 08/15/19 06:25 Anion Gap 9.7 mmol/L (3-11) 08/15/19 06:25 BUN 66 mg/dL (7-18) H 08/15/19 06:25 Creatinine 1.85 mg/dL (0.70-1.30) H 08/16/19 21:50 Estimated GFR/1.73 m2 37.48 (mL/min/1.73m2) 08/16/19 21:50 Glucose 397 mg/dL (74-106) H D 08/17/19 21:08 Calcium 9.1 mg/dL (8.5-10.1) 08/15/19 06:25 Magnesium 1.8 mg/dL (1.8-2.4) 08/15/19 06:25 Iron 30 ug/dL (65-175) L 08/16/19 06:25 TIBC 249 ug/dL (250-450) L 08/16/19 06:25 Transferrin % Sat 12 % (20-55) L 08/16/19 06:25 Albumin 2.8 g/dL (3.4-5.0) L 08/16/19 06:25 Vancomycin Trough 16.4 ug/mL (10.0-20.0) 08/20/19 09:18
--- NOTE | 2019-08-25 16:18 | POCOE_ITS ---
Date of service: 08/25/19 Time of Service: 16:19 History of Present Illness History of Present Illness Chief Complaint: Diabetic ulcer left foot, fungal toenails Narrative: Avery a 59-year-old white male with multiple comorbidities who is well-known to me. I have been asked to evaluate a chronic wound under the left forefoot as well as to manage chronic fungal toenails. Brendan is seen at bedside resting comfortably. He states he will be here at least 2 more weeks while he receives IV antibiotics for multiple wounds, MRSA. [facility] Medical History Acromegaly (Chronic) Acute on chronic kidney failure (Resolved) Adrenal insufficiency (Chronic) Ambulatory dysfunction (Chronic) Anemia (Chronic Unknown) Atrial flutter, paroxysmal (Chronic) Back pain (Chronic 06/21/13) CAD (coronary artery disease) (Chronic) Cardiopulmonary arrest with successful resuscitation (Resolved) Chronic anxiety (Chronic) Chronic bipolar disorder (Chronic) a. With history of psychosis. Chronic cholecystitis (Chronic) Chronic insomnia (Chronic) Chronic iron deficiency anemia (Acute) Chronic pain (Chronic) On both Methadone and Fentanyl as well as Ultram and Naproxen. CKD (chronic kidney disease) (Chronic) Decubitus ulcer of sacral region, stage 4 (Acute) Decubitus ulcer, stage 4 with infection (Chronic) Diabetes mellitus (Chronic) Diabetic gastroparesis (Acute) Diabetic ulcer of toe associated with diabetes mellitus due to underlying condition, with bone involvement without evidence of necrosis (Inactive) 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 (Resolved) DVT (deep venous thrombosis) (Chronic) Dg April 2019. Has IVC filter placed 04/2019 Dyslipidemia (Chronic) Endocarditis due to Staphylococcus (Resolved) Heart failure with preserved ejection fraction (Acute) Hemorrhagic cystitis (Chronic) Hep C w/o coma, chronic (Acute) History of DVT (deep vein thrombosis) (Chronic) Hyperkalemia (Resolved) Hypomagnesemia (Resolved) Hypothyroidism (Chronic) Hypoventilation associated with obesity syndrome (Chronic) Ileostomy in place (Acute) Impaired mobility and ADLs (Chronic) Inability to get out of bed (Chronic 06/21/13) Lactic acidosis (Resolved) MRSA bacteremia (Acute) Obesity (Chronic) a. Obesity though he has had significant weight loss since last seen. Obstructive sleep apnea (Chronic) Old non-ST elevation myocardial infarction (NSTEMI) (Acute) March 2019 Open wound of left lower extremity without complication (Acute) secondary to trauma and from anticoagulation 04/2019 Osteoarthritis of both knees (Chronic) Severe. a. [id number] bilateral knees. 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 2 diabetes mellitus (Resolved) Palliative care encounter (Chronic) DObbertin PEA (Pulseless electrical activity) (Acute) episode of bradycardic arrest/PEA. thought to be secondary to gram neg sepsis from acute sonny. 03/2019 Pedal edema (Chronic) Persistent vomiting in adult patient (Acute) Poor self care (Chronic 06/21/13) Poorly controlled type 2 diabetes mellitus with circulatory disorder (Chronic) Presence of IVC filter (Acute) Protein-calorie malnutrition, mild (Acute) Pulmonary hypertension (Chronic) Rheumatoid arthritis (Chronic) Sepsis (Resolved) Septic arthritis of elbow, right (Inactive) Toxic metabolic encephalopathy (Resolved) Ulcer of left lower leg (Chronic) Ulcerative colitis (Chronic) UTI (urinary tract infection) (Resolved) UTI (urinary tract infection) due to Enterococcus (Resolved) Surgical History Arthroplasty of knee (Resolved 03/18/12) irrigation and lavage right Fracture, Open Treatment (Resolved) 06[place]06[place]17[place] [place] RIGHT DISTAL HUMERUS FRACTURE History of insertion of T-tube into biliary tract (Chronic) S/P colectomy (Chronic) S/P proctocolectomy (Acute) Social History Smoking/Tobacco Use Status: Former Tobacco Use Alcohol Intake: former Drug use: Rarely Substance use type: marijuana Housing: snf Do you feel safe at home: Yes Do you feel safe in your relationship?: Yes Additional Social history: Living at [facility] in [place] Exam Narrative Exam Narrative: 59-year-old white male resting comfortably in bed looking far older than his stated age. DP and PT pulses are manually palpable at the ankles minus 2 out of 4 bilaterally. Capillary refill is under 3 seconds to all toes without edema. Calves are currently soft to palpation. Feet are warm to the touch. Dermatologic exam: Toenails are chronically fungal being yellowed, thick, dystrophic, hypertrophic, elongated and in need of debridement. All toenails are affected. There is subungual debris with periungual tenderness. No active drainage is appreciated. No active signs of tinea pedis noted at this time. Ulceration is appreciated under the left third metatarsal head and will be discussed under skeletal exam. Muscle groups are 5 out of 5 although he is significantly deconditioned Skeletal exam: Surgical absence of the right great toe is appreciated. The right foot is clinically stable. The skin envelope is intact and there are no areas of eminent breakdown. Flexion contractures of the toes are noted but are free of inflammation. The left foot shows contractures of the lesser toes with plantar prominence of the metatarsal heads. The region under the left third metatarsal head is ulcerated. The soft tissue in this area is extremely diminished with near complete fat pad atrophy noted. The third metatarsal head is pressing against the plantar ulcer with only a thin layer of deep fascia and perhaps a flexor tendon the bone from the wound bed. Hypertrophy around the wound is appreciated without active signs of infection. Nursing has the wound measured appropriately and I will paraphrase it at 1.3 x 0.8 cm with depth going full- thickness. Neurological exam: He is grossly neuropathic and insensate both lower extremities Impressions: Neuropathic ulcer left third metatarsal head chronic Onychomycosis chronic Plan: Although Brendan is currently minimally weightbearing on his left foot, I do not believe the wound will close due to the underlying plantigrade pressure that the third metatarsal head is exerting over the wound. Furthermore, is generalized deconditioning, chronic anemia, protein deficiency will make this wound difficult to close. I am recommending sharp debridement bedside with continue topical wound care understanding that if osteomyelitis or infection ensue that surgical intervention would be appropriate in spite of his comorbidities. Procedure note: With a #10 scalpel and nursing assistance the wound under the left third metatarsal head was sharply debrided to bleeding edges. No significant undermining was appreciated and no purulence was identified. The wound was subsequently dressed with Marco honey gauze dressings. Wound care will continue as recommended by the wound care nurse sterile specialist. I will proceed with a x-ray of the left foot to assess for osteomyelitis and to est ablish a baseline. Mechanically and electrically debrided all toenails aggressively and atraumatica lly to patient tolerance. Significant reduction in the bulk of the toenails was appreciated. He will require episodic debridement to maintain comfort and try to prevent secondary infections associated with onychomycosis. I will be glad to round again on Brendan as needed. Results Last Vital Signs Temp 36.6 C 08/25/19 15:08 Pulse 81 08/25/19 15:08 Resp 20 08/25/19 15:08 BP 149/68 H 08/25/19 15:08 Pulse Ox 98 08/25/19 15:08 Labs Result diagrams: 08/16/19 06:25 08/17/19 21:08
--- NOTE | 2019-08-25 17:05 | DI.RAD_ITS ---
EXAM: XR FOOT LT COMPLETE CLINICAL HISTORY: chronic ulcer sub 3rd met head, eval for osteo. TECHNIQUE: 2D digital imaging was performed. COMPARISON: CR XR foot LT complete from 08/31/2018 FINDINGS: Study is limited by external artifact and patient positioning. BONES: There is generalized osteopenia. There has been a previous resection of the head of the 5th m etatarsal. No bony destructive lesion is seen. No acute fracture is identified. JOINTS: There are dorsal lateral subluxations or dislocations of the 2nd, 3rd and 4th metatarsophalan geal joints. There is a hallux valgus deformity. There is an erosion at the lateral aspect of the h ead of the 1st metatarsal. There is cortical thinning of the heads of the 2nd, 3rd and 4th metatarsa ls. No discrete cortical loss is seen. SOFT TISSUE: Vascular calcifications are seen in the soft tissues. There is mild diffuse soft tissue swelling of the foot. IMPRESSION: 1. Mild cortical thinning of the heads of the 2nd, 3rd and 4th metatarsals without discrete cortical loss. Erosion involving the lateral aspect of the head of the 1st metatarsal. MRI or bone scan woul d be more sensitive and specific for osteomyelitis and should be considered. 2. Diffuse osteopenia. 3. Dorsal lateral subluxations/dislocations of the 2nd, 3rd and 4th metatarsal MTP joints. 4. Status post resection of the head of the 5th metatarsal. 5. Diffuse soft tissue swelling of the foot. DATA REPOSITORY: RADIATION DOSE DELIVERED:
--- NOTE | 2019-08-25 17:28 | DI.VRAD_ITS ---
PROCEDURE INFORMATION: Exam: XR Left Foot Complete Exam date and time: 08/25/2019 4:52 PM Age: 59 years old Clinical indication: Pain; Foot; Left; Patient HX: Chronic ulcer sun 3rd metatarsal head, eval for osteo TECHNIQUE: Imaging protocol: XR Left foot. Views: 3 or more views. COMPARISON: CR XR foot LT complete 08/31/2018 11:22 AM FINDINGS: Bones/joints: The bones are diffusely demineralized. The 5th metatarsal head has previously been resected. There is marked cortical thinning of the remaining 4 metatarsal heads with some minimal irregularity of the articular surfaces of the 2nd 3rd and 4th metatarsal heads. There is a discrete erosion along the lateral aspect of the articular surface metatarsal head of the great toe. There is a hallux valgus deformity. There is also dorsal and lateral subluxation or dislocation of the 2nd, 3rd, and 4th toes at the MTP joints. Soft tissues: Patient by history has a chronic ulcer in the region of the 3rd metatarsal head. A ?V? shaped lucency corresponding with the 3rd metatarsal head on the frontal views likely represents that ulcer. There is also lucency in the soft tissues posterior to the calcaneus suggesting an additional skin ulcer. There is diffuse soft tissue swelling of the foot and ankle most severe in the lateral tarsal region. IMPRESSION: 1. Cortical thinning and minimal irregularity along the middle 3 metatarsal heads and osteomyelitis cannot be excluded. 2. Erosion great toe metatarsal head which could represent osteomyelitis or arthritis. 3. Marked diffuse bone demineralization. 4. MRI or bone scan would be more sensitive and specific for osteomyelitis. 5. No change 5th metatarsal head resection. 6. Soft tissue swelling and evidence of skin ulcerations as described. Dictated and Authenticated by: Nathan Brown MD. Ordering:ELOY Iglesias MD
[2019-08-25 19:57] VITALS: BP 145/75; PULSE 75; RESP 18; TEMP 36.6; O2SAT 98
[2019-08-25] MEDS: risperiDONE 0.5 MG TAB 1.5 MG PO (22:02)
[2019-08-25] MEDS: Levothyroxine 25 MCG TAB 12.5 MCG PO (22:03)
[2019-08-25] MEDS: Insulin Glargine 300 UNITS/3 ML PEN 50 UNITS SC (22:04)
[2019-08-25] MEDS: Melatonin 3 MG TAB PO (23:41)
[2019-08-26 05:32] VITALS: BP 133/77; PULSE 66; RESP 18; TEMP 36.5; O2SAT 97
[2019-08-26] MEDS: Calcium 600mg/Vit D 200U TAB 1 TAB PO ×2 (05:38→17:12)
[2019-08-26 07:02] LABS: Anion Gap 8.6 mmol/L (3-11); BUN 70 mg/dL (7-18); CO2 20.4 mmol/L (21.0-32.0); Calcium 8.9 mg/dL (8.5-10.1); Chloride 110 mmol/L (98-107); Estimated GFR 38.68 (mL/min/1.73m2); Glucose 178 mg/dL (74-106); Potassium 4.5 mmol/L (3.5-5.1); Sodium 139 mmol/L (136-145)
[2019-08-26 07:39] VITALS: BP 154/80; PULSE 65; RESP 18; TEMP 36.6; O2SAT 97
[2019-08-26] MEDS: predniSONE 20 MG TAB 40 MG PO (07:52)
[2019-08-26] MEDS: Terazosin 2 MG CAP 4 MG PO ×2 (07:52→20:02)
[2019-08-26] MEDS: Acetaminophen 325 MG TAB 650 MG PO (07:52)
[2019-08-26] MEDS: amLODIPine 5 MG TAB 10 MG PO (07:52)
[2019-08-26] MEDS: Gabapentin 300 MG CAP PO ×3 (07:53→20:01)
[2019-08-26] MEDS: hydrALAZINE 25 MG TAB 50 MG PO ×4 (07:53→20:01)
[2019-08-26] MEDS: Venlafaxine 37.5 MG CAPCR 112.5 MG PO (07:53)
[2019-08-26] MEDS: Pantoprazole 40 MG TABCR PO (07:53)
[2019-08-26] MEDS: Ferrous Sulfate 325 MG TAB PO ×2 (07:53→20:01)
[2019-08-26] MEDS: Ascorbic Acid 500 MG TAB 250 MG PO ×2 (07:54→20:01)
[2019-08-26] MEDS: Lactobacillus Acidophilus CAP 1 CAP PO ×3 (07:54→20:01)
[2019-08-26] MEDS: Protein Nutritional Supplement 16 GM 1 OUNCE PACKET PO ×3 (07:54→20:01)
[2019-08-26] MEDS: Insulin Aspart 300 UNITS/3 ML PEN 18 UNITS SC ×3 (07:55→17:12)
[2019-08-26] MEDS: Insulin Aspart 300 UNITS/3 ML PEN SC ×4 (07:55→21:26)
[2019-08-26] MEDS: Insulin Glargine 300 UNITS/3 ML PEN 15 UNITS SC (07:56)
[2019-08-26] MEDS: Normal Saline Flush 10 ML SYR IVP ×2 (07:57→20:02)
[2019-08-26] MEDS: Furosemide 20 MG TAB PO (09:11)
--- NOTE | 2019-08-26 09:59 | W.PM.DS.N ---
Date of service: 08/26/19 Time of Service: 09:59 DS: Diagnosis Discharge Diagnosis (1) Decubitus ulcer, stage 4 with infection: Status: Resolved (2) MRSA bacteremia: Status: Acute (3) Poorly controlled type 2 diabetes mellitus with circulatory disorder: Status: Chronic (4) CKD (chronic kidney disease): Status: Chronic (5) Hypertension: Status: Chronic (6) Obstructive sleep apnea: Status: Chronic (7) Anemia: Status: Chronic Discharge Plan Disposition Patient Disposition: [facility] Condition: Stable Discharge Details Reason For Visit: MRSA BACTEREMIA, SACRAL DECUBITUS ULCER STG 4, GAS Admit Date/Time: 08/11/19 13:46 Admit Provider: Manuel Fisher Attending Provider: Manuel Fisher Primary Care Provider: Lou Maldonado Hospital Course Hospital Course: In summary this 59-year-old poorly controlled type II diabetic requiring insulin and a history of chronic kidney disease coronary artery disease paroxysmal atrial fibrillation JESSICA, rheumatoid arthritis, Crohn's disease status post proctocolectomy with ileostomy presented emergency department on July 24, 2019 with generalized malaise fatigue worsening glycemic control and labs consistent with sepsis with severe leukocytosis with a white count in the 20,000's along with worsening renal failure but surprising no fevers. In summary he was found to have MRSA bacteremia. 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 He also had a UTI with an ESBL E. coli which was successfully treated with meropenem for 7 days. At this time he was admitted to status During his work-up an echocardiogram was performed and showed no vegetations. This was a transthoracic echocardiogram. He has known heart failure with preserved ejection fraction but no valvular vegetations were seen. He is not a surgical candidate because of his multiple comorbidities and morbid obesity and high risk for respiratory failure with any kind of sedation for surgical procedure. It is felt that his sacral wound is unlikely to completely heal the goal is to try to treat his MRSA bacteremia and treat the wound infection as best as we can with a wound vacuum and periodic debridements as needed. Patient is noncompliant with pressure relieving measures to allow the sacral decubitus to heal. He has been compliant with wearing his trilogy mask for his JESSICA. His first negative blood culture was on July 27, 2019 and therefore 4 weeks of therapy was completed on August 24, 2019. He will be on doxycycline for preventative life long. He received multiple debridements of his wound while present with the last one being on 09/02, per surgery he will need another 2 weeks of the wound vac to complete treatment. During admission his colostomy was putting undigested food, he was made npo and studies were done revealing gastropareisis, he did have an ileus. He was placed on erythromycin which he finished. He was also positive with an E.coli uti and given a dose of fosfomycin with negative repeat urine cultures. We will continue the catheter at this time to add in wound healing. He did have worsening creatinines when requiring lasix doses therefore he will be on q 72 hour 40 mg lasix dosing. He denies CP, SOB, N/V/D. He does well on trilogy and should be wearing it at all times when resting or feeling volume overloaded. Home Meds and New Rx's Prescriptions: New prednisone 10 mg Tablet 30 mg PO DAILY Qty: 60 RF: 0 doxycycline hyclate 100 mg Capsule 100 mg PO DAILY@1000 Qty: 30 RF: 0 erythromycin ethylsuccinate 200 mg/5 mL Suspension For Reconstitution 100 mg PO AC Qty: 27 RF: 0 Phlexy-Vits Packet 1 oz PO TID Qty: 15 RF: 0 oxycodone 5 mg Tablet 5 mg PO Q4H PRN PRNQty: 20 RF: 0 furosemide [Lasix] 40 mg tablet 40 mg PO .Q 72 H Qty: 20 RF: 0 Continued cyanocobalamin (vitamin B-12) 1,000 mcg Tablet 1,000 mcg PO DAILY RF: 0 ferrous sulfate 325 mg (65 mg iron) Tablet 325 mg PO BID Qty: 0 RF: 0 ascorbic acid (vitamin C) [Vitamin C] 250 mg Tablet 1 tab PO BID RF: 0 Centrum Complete 18-400 mg-mcg Tablet 1 tab PO DAILY RF: 0 pantoprazole 40 mg Tablet,Delayed Release (Dr/Ec) 40 mg PO DAILY Qty: 60 RF: 0 melatonin 3 mg Tablet Extended Release 6 mg PO HS Qty: 30 RF: 0 calcium carbonate-vitamin D3 [Calcium 500 + D] 500 mg(1,250mg) -400 unit Tablet 1 tab PO BID RF: 0 acetaminophen [Tylenol] 325 mg tablet See Rx Instructions .ROUTE .COMPLEX RF: 0 gabapentin 100 mg capsule 300 mg PO TID RF: 0 risperidone [Risperdal] 2 mg tablet 1.5 mg PO HS RF: 0 vitamin B complex 100 2-herbs 100 mg Tablet 1 tab PO DAILY RF: 0 Enrique 7-7-1.5 gram Powder In Packet 1 packet PO BID RF: 0 Combivent Respimat 20-100 mcg/actuation Mist 1 puff INHALATION Q6H PRNRF: 0 acidophilus-pectin, citrus 25 million cell -100 mg tablet 1 cap PO DAILY RF: 0 insulin lispro [Humalog KwikPen Insulin] 100 unit/mL Insulin Pen 0 unit SUBCUT AC RF: 0 nystatin 100,000 unit/gram Powder 0 g topical BID Qty: 0 RF: 0 sodium bicarbonate 650 mg Tablet 650 mg PO BID Qty: 90 RF: 0 potassium bicarb-citric acid 20 mEq tablet, effervescent 20 meq PO DAILY Qty: 30 RF: 0 terazosin 2 mg Capsule 4 mg PO BID Qty: 0 RF: 0 magnesium chloride [Mag 64] 64 mg Tablet,Delayed Release (Dr/Ec) 64 mg PO BID Qty: 0 RF: 0 venlafaxine [Effexor XR] 37.5 mg Capsule,Extended Release 24hr 112.5 mg PO DAILY RF: 0 Zyrtec 10 mg Capsule 10 mg PO DAILY RF: 0 amlodipine 5 mg tablet 10 mg PO DAILY RF: 0 levothyroxine 25 mcg tablet 12.5 mcg PO HS RF: 0 Lantus Solostar U-100 Insulin 100 unit/mL (3 mL) insulin pen 50 unit subcut DIRECTED RF: 0 insulin aspart U-100 100 unit/mL (3 mL) insulin pen 10 unit SC AC Qty: 15 RF: 0 metoprolol tartrate 25 mg Tablet 25 mg PO BID RF: 0 clonidine HCl [Catapres] 0.1 mg tablet 0.1 mg PO TID Qty: 0 RF: 0 Eliquis 5 mg Tablet 2.5 mg PO BID Qty: 60 RF: 0 lorazepam [Ativan] 1 mg Tablet 1 mg PO Q8H PRNRF: 0 CertaVite Senior-Antioxidant 0.4-300-250 mg-mcg-mcg Tablet 1 tab PO QAM RF: 0 Duoneb 3 ml inhalation PRN PRNRF: 0 Discontinued furosemide [Lasix] 40 mg tablet 80 - 100 mg PO BID RF: 0 cephalexin 500 mg tablet 500 mg PO BID 7 Days Qty: 14 RF: 0 prednisone 1 mg tablet See Rx Instructions .ROUTE .COMPLEX RF: 0 No Action ertapenem 1 gram recon soln 1 gm IM Q24H Qty: 5 RF: 0 Discharge Instructions Instructions: Ileus (DC), Gastroparesis (ED) Additional Instructions: Take lasix q 72 hour Follow wound recommendations per Dr. Ashford and surgery Ensure with every meal. Try to get OOB USE TRILOGY AT ALL TIMES WHEN RESTING OR FEELING VOLUME OVERLOADED Stand Alone Forms: Nursing Discharge Form Referrals: Harris Ashford DPM [[facility] STAFF PHYSICIAN] - 09/13/19 10:00 am Activity:: Activity as Tolerated Equipment/Supplies:: No Equipment Needed Diet:: Carb Counting Discharge Orders Discharge Orders: Discharge Order (Routine); Ordered 09/06/19 Ordered By: Lashon Still Discharge Data Discharge Date/Time-TO BE ENTERED AT DEPARTURE: 09/06/19 13:35 DS: Summary Status at Discharge Functional status at discharge: uses cane/walker Overall status at discharge: patient is progressing back to baseline Mental Status: mental status grossly normal Speech and Movement: speech and movement normal Mood: congruent mood Affect: normal affect Exam Narrative Exam Narrative: Lying in bed. NAD Neck Neck: normal visual inspection and no JVD Thyroid: thyroid normal Chest Other: Clear in anterior chest Cardio Rate: regular rate Rhythm: regular rhythm Extrem General: pedal edema (tr bilateral) Psych Appearance: grossly normal Mental Status: mental status grossly normal Speech and Movement: speech and movement normal Mood: congruent mood Affect: normal affect DS: Data Vitals/I&O Vitals and I&O: Vital Signs Temperature 36.6 C 08/26/19 07:39 Temperature Source Temporal Artery Scan 08/26/19 07:39 Pulse 65 08/26/19 07:39 Pulse Rhythm Regular 08/26/19 02:01 Respiratory Rate 18 08/26/19 07:39 Respiratory Effort Non-Labored 08/26/19 02:01 Respiratory Depth Normal 08/26/19 02:01 Respiratory Pattern Normal 08/26/19 02:01 Blood Pressure 154/80 H 08/26/19 07:39 Pulse Oximetry 97 08/26/19 07:39 Oxygen Delivery Method Room Air 08/26/19 07:39 Oxygen Flow Rate 0 08/26/19 07:39 Pain Level 2 08/26/19 08:52 Comment 08/17/19 09:00 Intake & Output 08/25/19 08/25/19 08/26/19 11:59 23:59 11:59 Intake Total 450 / 1610 1160 / 1610 850 / 850 Output Total 1750 / 3900 2150 / 3900 1275 / 1275 Balance -1300 / -2290 -990 / -2290 -425 / -425 Weight 103.9 kg 105.1 kg Intake: IV 30 / 30 Oral 450 / 1580 1130 / 1580 850 / 850 Output: Urine 1200 / 2450 1250 / 2450 800 / 800 Stool 550 / 1450 900 / 1450 475 / 475 Other: Urine Color Yellow Yellow Yellow Urine Appearance Clear Clear Clear Urine Odor Normal Normal Normal Voiding Methods Urinal Urinal Urinal Data Completed and Pending Labs on day of discharge: Labs from last 24 hours 08/26/19 06:10 Sodium 139 Potassium 4.5 Chloride 110 H Carbon Dioxide 20.4 L Anion Gap 8.6 BUN 70 H Creatinine 1.80 H Estimated GFR/1.73 m2 38.68 Glucose 178 H Calcium 8.9 08/25/19 12:55 Sacrum Skin Culture - Pending Preliminary micro results at discharge 08/25/19 12:55 Skin Culture - Pending Sacrum [facility] Medical History (Updated 09/11/19 @ 22:01 by Karen Wood NP) Acromegaly (Chronic) Acute on chronic kidney failure (Resolved) Adrenal insufficiency (Chronic) Ambulatory dysfunction (Chronic) Anemia (Chronic Unknown) Atrial flutter, paroxysmal (Chronic) Back pain (Chronic 06/21/13) CAD (coronary artery disease) (Chronic) Cardiopulmonary arrest with successful resuscitation (Resolved) Chronic anxiety (Chronic) Chronic bipolar disorder (Chronic) a. With history of psychosis. Chronic cholecystitis (Chronic) Chronic insomnia (Chronic) Chronic iron deficiency anemia (Acute) Chronic pain (Chronic) On both Methadone and Fentanyl as well as Ultram and Naproxen. CKD (chronic kidney disease) (Chronic) Decubitus ulcer of sacral region, stage 4 (Acute) Decubitus ulcer, stage 4 with infection (Resolved) Diabetes mellitus (Chronic) Diabetic gastroparesis (Acute) Diabetic ulcer of left foot associated with diabetes mellitus due to underlying condition (Acute) Diabetic ulcer of toe associated with diabetes mellitus due to underlying condition, with bone involvement without evidence of necrosis (Inactive) 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 (Resolved) DVT (deep venous thrombosis) (Chronic) Dg April 2019. Has IVC filter placed 04/2019 Dyslipidemia (Chronic) Endocarditis due to Staphylococcus (Resolved) Heart failure with preserved ejection fraction (Acute) Hemorrhagic cystitis (Chronic) Hep C w/o coma, chronic (Chronic) History of DVT (deep vein thrombosis) (Chronic) Hyperkalemia (Resolved) Hypomagnesemia (Resolved) Hypothyroidism (Chronic) Hypoventilation associated with obesity syndrome (Chronic) Ileostomy in place (Acute) Impaired mobility and ADLs (Chronic) Inability to get out of bed (Chronic 06/21/13) Lactic acidosis (Resolved) MRSA bacteremia (Acute) Obesity (Chronic) a. Obesity though he has had significant weight loss since last seen. Obstructive sleep apnea (Chronic) Old non-ST elevation myocardial infarction (NSTEMI) (Acute) March 2019 Open wound of left lower extremity without complication (Acute) secondary to trauma and from anticoagulation 04/2019 Osteoarthritis of both knees (Chronic) Severe. a. [id number] bilateral knees. 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 2 diabetes mellitus (Resolved) Palliative care encounter (Chronic) DObbertin PEA (Pulseless electrical activity) (Acute) episode of bradycardic arrest/PEA. thought to be secondary to gram neg sepsis from acute sonny. 03/2019 Pedal edema (Chronic) Persistent vomiting in adult patient (Acute) Poor self care (Chronic 06/21/13) Poorly controlled type 2 diabetes mellitus with circulatory disorder (Chronic) Presence of IVC filter (Acute) Protein-calorie malnutrition, mild (Acute) Pulmonary hypertension (Chronic) Rheumatoid arthritis (Chronic) Sepsis (Resolved) Septic arthritis of elbow, right (Inactive) Toxic metabolic encephalopathy (Resolved) Ulcer of left lower leg (Chronic) this is healed and resolved. no longer requires dressing Ulcerative colitis (Chronic) UTI (urinary tract infection) (Resolved) UTI (urinary tract infection) due to Enterococcus (Resolved) Surgical History Arthroplasty of knee (Resolved 03/18/12) irrigation and lavage right Fracture, Open Treatment (Resolved) [place] [place] RIGHT DISTAL HUMERUS FRACTURE History of insertion of T-tube into biliary tract (Chronic) S/P colectomy (Chronic) S/P proctocolectomy (Acute) Social History Smoking/Tobacco Use Status: Former Tobacco Use Alcohol Intake: former Drug use: Rarely Substance use type: marijuana Housing: custodial Do you feel safe at home: Yes Do you feel safe in your relationship?: Yes Additional Social history: [place] [facility] [place]
--- NOTE | 2019-08-26 10:14 | W.PM.PROGNOT ---
Date of Service Date of service: 08/26/19 Time of Service: 10:14 Assessment and Plan Assessment and plan (1) Sacral wound: Status: Acute Assessment and plan: These are the problems addressed today. 30 minutes including patient's care. F/u w/ Tracey in 2 wks for wound eval. clinic vs ED. (2) Diabetic gastroparesis: Status: Acute (3) Ulcer of left lower leg: Status: Chronic Qualifiers: Non-pressure ulcer stage: limited to breakdown of skin Qualified Code(s): L97.921 - Non-pressure chronic ulcer of unspecified part of left lower leg limited to breakdown of skin (4) History of DVT (deep vein thrombosis): Status: Chronic (5) Chronic iron deficiency anemia: Status: Acute (6) Open wound of left lower extremity without complication: Status: Acute (7) DVT (deep venous thrombosis): Status: Chronic (8) Decubitus ulcer of sacral region, stage 4: Status: Acute (9) Protein-calorie malnutrition, mild: Status: Acute (10) MRSA colonization: Status: Chronic (11) Leg wound, left: Status: Resolved Qualifiers: Encounter type: subsequent encounter Qualified Code(s): S81.802D - Unspecified open wound, left lower leg, subsequent encounter (12) UTI (urinary tract infection): Status: Resolved (13) Diabetic foot ulcer: Status: Chronic Qualifiers: Diabetic foot ulcer location: toe Diabetes mellitus type: type 2 Laterality: left Non-pressure ulcer stage: with fat layer exposed Qualified Code(s): E11.621 - Type 2 diabetes mellitus with foot ulcer; L97.522 - Non-pressure chronic ulcer of other part of left foot with fat layer exposed (14) Atrial flutter, paroxysmal: Status: Chronic (15) Ambulatory dysfunction: Status: Chronic (16) Poorly controlled type 2 diabetes mellitus with circulatory disorder: Status: Chronic (17) Inability to get out of bed: Status: Chronic (18) Cholelithiasis: Status: Chronic (19) Anemia: Status: Chronic Qualifiers: Anemia type: due to chronic kidney disease Chronic kidney disease stage: stage 4 (severe) Qualified Code(s): N18.4 - Chronic kidney disease, stage 4 (severe); D63.1 - Anemia in chronic kidney disease Subjective Subjective Interval history since last seen: Patient is seen and evaluated today. She does not appear to be any excessive bleeding. There does not appear to be any infection. There is actually may be 2% granulation today. Again it does appear that now that we are only using the black foam that there is actually some granulation tissue apparent. We will work done or outpatient back. He will follow-up with myself for wound evaluation. Clinically there are no signs of infection. tolerating a diet without vomiting. And his bowels have been regular. He has no abdominal pain. He has no signs of thrush. - Diabetic foot ulcer of left foot: He did come into the hospital with the diabetic foot ulcer on his left foot. This does appear to be chronic in nature. There is no signs of infection in the wound at this point. He did complete 30 days of IV Vanco. Patient refuses to lie on the table to get an MRI or bone scan. I did discuss with the hospitalist. Patient will occasionally stand with assist proved he does not walk. He does not even get up into a wheelchair. However, he got her arrhythmia from being on IV Flagyl. He is certainly not a candidate for any type of amputation. He would not even tolerate a block with sedation given the irritability of his heart. He will go back to the [facility] on oral antibiotics and see if we can treat him symptomatically. I do not feel any aggressive surgery is in his best interest. He enjoys his life at the [facility]. He is able to eat right now. And I think this will give him the best quality of life. -Gastroparesis: At this point he is able to eat, but this is what brings him tenisha in his life. Eventually his body is going to develop tolerance to the erythromycin and it will no longer effective for him. -He did grow out gram-negative rods-no ID or susceptibility on the organism is apparent. He did have gram-negative rods medicated in the hospital in his urine. We will check a UA. Just because he has had problems with urinary sepsis in the past. Based on the culture alone I would not treat for the wound. the wound looks good and he has been off IV antibiotics for 48 hours at this point. -Iron deficiency anemia: Patient is on p.o. iron. His B12 level is good. Because of his gastroparesis and need for prokinetic use, he probably has some degree of malabsorption. He is not losing any iron. He does not eat a good diet. Also he has chronic renal disease which sure has component as well. We will continue to supplement with IV B12 he is in the hospital. -Left lower extremity leg: This is healed and does not require any dressings at this time. His skin will always remain fragile and susceptible to injury. -Anticoagulation: He is on chronic anticoagulation. He he has A. fib and poor cardiac functionality. He has had DVTs in May 2019. He does have a filter in place. Because of his immobility he is at high risk for blood clots. He has had have significant bleeding problems with his wound and this will need to be monitored closely. He has not had any GI bleed. -Nutritional status is poor and will need to continue to supplement with protein drinks to aid in wound healing. Consider arginine supplementation as an outpatient. Objective Objective Clinical Data: Abnormal lab results 08/26/19 Range/Units 06:10 Chloride 110 H (98-107) mmol/L Carbon Dioxide 20.4 L (21.0-32.0) mmol/L BUN 70 H (7-18) mg/dL Creatinine 1.80 H (0.70-1.30) mg/dL Glucose 178 H (74-106) mg/dL Vital Signs Temperature 36.6 C 08/26/19 07:39 Temperature Source Temporal Artery Scan 08/26/19 07:39 Pulse 65 08/26/19 07:39 Pulse Rhythm Regular 08/26/19 08:45 Respiratory Rate 18 08/26/19 07:39 Respiratory Effort Non-Labored 08/26/19 08:45 Respiratory Depth Normal 08/26/19 08:45 Respiratory Pattern Normal 08/26/19 08:45 Blood Pressure 154/80 H 08/26/19 07:39 Pulse Oximetry 97 08/26/19 07:39 Oxygen Delivery Method Room Air 08/26/19 07:39 Oxygen Flow Rate 0 08/26/19 07:39 Pain Level 2 08/26/19 08:52 Comment 08/17/19 09:00 Intake & Output 08/25/19 08/25/19 08/26/19 11:59 23:59 11:59 Intake Total 450 / 1610 1160 / 1610 850 / 850 Output Total 1750 / 3900 2150 / 3900 1575 / 1575 Balance -1300 / -2290 -990 / -2290 -725 / -725 Weight 103.9 kg 105.1 kg Intake: IV Oral 450 / 1580 1130 / 1580 850 / 850 Output: Urine 1200 / 2450 1250 / 2450 1100 / 1100 Stool 550 / 1450 900 / 1450 475 / 475 Other: Urine Color Yellow Yellow Yellow Urine Appearance Clear Clear Clear Urine Odor Normal Normal Normal Voiding Methods Urinal Urinal Urinal Laboratory Results WBC 6.70 k/cumm (4.4-10.8) 08/16/19 06:25 RBC 3.53 m/cumm (4.50-6.00) L 08/16/19 06:25 Hgb 8.4 g/dL (13.5-17.5) L 08/16/19 06:25 Hct 27.6 % (40.0-50.0) L 08/16/19 06:25 MCV 78.2 fL (80-95) L 08/16/19 06:25 MCH 23.8 pg (27.0-33.0) L 08/16/19 06:25 MCHC 30.4 g/dL (32.0-36.0) L 08/16/19 06:25 RDW 21.0 % (11.8-14.1) H 08/16/19 06:25 Plt Count 226 x1000/uL (130-400) 08/16/19 06:25 MPV 9.7 fL (8.0-11.0) 08/16/19 06:25 Immature Gran % 3.6 % 08/16/19 06:25 Neutrophils % 77.3 08/16/19 06:25 Lymphocytes % 12.4 08/16/19 06:25 Monocytes % 5.7 08/16/19 06:25 Eosinophils % 0.9 08/16/19 06:25 Basophils % 0.1 08/16/19 06:25 Absolute Neutrophils 5.18 k/cumm (1.2-6.7) 08/16/19 06:25 Absolute Lymphocytes 0.83 k/cumm (1.2-3.4) L 08/16/19 06:25 Absolute Monocytes 0.38 k/cumm (0.11-0.7) 08/16/19 06:25 Absolute Eosinophils 0.06 k/cumm (0.0-0.7) 08/16/19 06:25 Absolute Basophils 0.01 k/cumm (0.0-0.2) 08/16/19 06:25 Differential Comment Rbc morph reviewed 08/16/19 06:25 RBC Morphology See below 08/16/19 06:25 Polychromasia Present 08/16/19 06:25 Hypochromasia 3+ 08/16/19 06:25 Poikilocytosis 2+ 08/16/19 06:25 Anisocytosis 2+ 08/16/19 06:25 Microcytosis 3+ 08/16/19 06:25 Ovalocytes 2+ 08/16/19 06:25 Sodium 139 mmol/L (136-145) 08/26/19 06:10 Potassium 4.5 mmol/L (3.5-5.1) 08/26/19 06:10 Chloride 110 mmol/L (98-107) H 08/26/19 06:10 Carbon Dioxide 20.4 mmol/L (21.0-32.0) L 08/26/19 06:10 Anion Gap 8.6 mmol/L (3-11) 08/26/19 06:10 BUN 70 mg/dL (7-18) H 08/26/19 06:10 Creatinine 1.80 mg/dL (0.70-1.30) H 08/26/19 06:10 Estimated GFR/1.73 m2 38.68 (mL/min/1.73m2) 08/26/19 06:10 Glucose 178 mg/dL (74-106) H 08/26/19 06:10 Calcium 8.9 mg/dL (8.5-10.1) 08/26/19 06:10 Magnesium 1.8 mg/dL (1.8-2.4) 08/15/19 06:25 Iron 30 ug/dL (65-175) L 08/16/19 06:25 TIBC 249 ug/dL (250-450) L 08/16/19 06:25 Transferrin % Sat 12 % (20-55) L 08/16/19 06:25 Albumin 2.8 g/dL (3.4-5.0) L 08/16/19 06:25 Vancomycin Trough 16.4 ug/mL (10.0-20.0) 08/20/19 09:18
--- NOTE | 2019-08-26 11:53 | CMACTNOTE_ITS ---
- If Service Date Differs Date of service: 08/26/19 Time of Service: 11:53 Care Management Activity Note S/O: Brendan remains in SB-1 status for treatment of his sacral decubitus ulcer. He has completed an extended course of IV antibiotics and his wound is beginning to show sign of healing. Brendan remains cheerful and is excited about returning to the [facility], which is scheduled to occur on Friday. Brendan continues to watch TV and visit with staff. He also makes and receives many phone calls from his friends and family. Brendan has been given permission to have one cheeseburger per week on Friday evenings and he is also looking forward to that treat tomorrow. P: Brendan is scheduled to return to [facility] on Friday morning. He will transport via ambulance coordinated by KATELYN. A wound vac with all necessary supplies has been ordered by [facility] and will be placed upon arrival. CM will continue to s upport Brendan, his family and discharge planning needs.
--- NOTE | 2019-08-26 13:07 | NUR.NOTE ---
Nursing Note: I have and reviewed the documentation Marcela Benz. GEOGRAPHIC INFORMATION SYSTEMS ENGINEER and approve of the documentation
--- NOTE | 2019-08-26 13:10 | NUR.NOTE ---
Nursing Note: I have reviewed the charting of Marcela Benz LPN and approve that is thorough and complete
--- NOTE | 2019-08-26 15:21 | OTTR_ITS ---
Date of service: 08/26/19 Time of Service: 07:00 Occupational Therapy Notes Occupational Therapy Inpatient Treatment Note Date: 08/26/19 PRECAUTIONS: Fall, Contact precautions, FULL SUBJECTIVE: Pt was lying in bed when OT arrived. He as c/o pain in low back and notes that he is sore but that he was told his wound is improving. OBJECTIVE: PAIN: c/o pain in sacral area due to wound Therapeutic Exercise 52747 x2: OT educated and trained pt in (B) UE ROM exercises with isometric strengthening and dynamic functional ROM with min vc provided throughout for muscle facilitation. Pt performed (B) shoulder flexion, abduction, adduction, elbow flexion and extension 20x each with a 5-10 second break between sets of 10, to facilitate and maintain ROM of pts (B) UE required for performance and (I) in his ADL/IADL routines. OT had pt use yellow theraband for (B) UE strengthening in shoulder flexion, abduction and bicep curls. Pt has been able to use his (B) UE more due to strengthening. He was able to wash his face (I), (A) with (B) UE and perform AROM required to (I) wash his abdomen and thighs. ASSESSMENT/PLAN:Pt has made significant gains in his AROM of (B) UE. He does report that they are sore at times but notes that they are improving. TREATMENT CODES/TIME: [id number], 15 minutes (07:00) Suzanne Javier OTR/L [facility]
--- NOTE | 2019-08-26 15:23 | CHAPLAIN ---
Brendan was having lunch when I visited. He talked about his childhood and the last time he want outdoors at the [facility]. Brendan will be transferred back to the [facility] on Friday (08/29).
[2019-08-26 16:48] VITALS: BP 150/77; PULSE 83; RESP 22; TEMP 37.1; O2SAT 94
[2019-08-26 19:58] VITALS: BP 168/69; PULSE 81; RESP 18; TEMP 37.3; O2SAT 98
[2019-08-26] MEDS: Apixaban 2.5 MG TAB PO (20:01)
[2019-08-26] MEDS: Normal Saline Flush 10 ML SYR 20 ML IVP (20:02)
[2019-08-26 21:08] LABS: COVID-19 RT-PCR UVMMC Result Negative (Negative)
[2019-08-26] MEDS: Levothyroxine 25 MCG TAB 12.5 MCG PO (21:23)
[2019-08-26] MEDS: risperiDONE 0.5 MG TAB 1.5 MG PO (21:24)
[2019-08-26] MEDS: Insulin Glargine 300 UNITS/3 ML PEN 50 UNITS SC (21:25)
[2019-08-26] MEDS: Melatonin 3 MG TAB PO (23:58)
[2019-08-27 05:32] VITALS: BP 128/72; PULSE 61; RESP 18; TEMP 36.4; O2SAT 100
[2019-08-27] MEDS: Calcium 600mg/Vit D 200U TAB 1 TAB PO ×2 (05:35→17:37)
[2019-08-27 07:10] LABS: Anion Gap 10.3 mmol/L (3-11); BUN 76 mg/dL (7-18); CO2 20.7 mmol/L (21.0-32.0); CREATININE 2.28 mg/dL (0.70-1.30); Calcium 9.1 mg/dL (8.5-10.1); Chloride 109 mmol/L (98-107); Estimated GFR 29.45 (mL/min/1.73m2); Glucose 143 mg/dL (74-106); Potassium 4.3 mmol/L (3.5-5.1); Sodium 140 mmol/L (136-145)
[2019-08-27] MEDS: Normal Saline 500 ML 100 ML IV (08:40)
[2019-08-27] MEDS: Insulin Aspart 300 UNITS/3 ML PEN 18 UNITS SC ×3 (08:41→17:07)
[2019-08-27] MEDS: Insulin Aspart 300 UNITS/3 ML PEN SC ×4 (08:41→22:40)
[2019-08-27] MEDS: Insulin Glargine 300 UNITS/3 ML PEN 15 UNITS SC (08:43)
[2019-08-27] MEDS: Normal Saline Flush 10 ML SYR 20 ML IVP ×2 (08:44→20:31)
[2019-08-27] MEDS: Normal Saline Flush 10 ML SYR IVP (08:44)
[2019-08-27] MEDS: hydrALAZINE 25 MG TAB 50 MG PO ×4 (08:44→20:30)
[2019-08-27] MEDS: Lactobacillus Acidophilus CAP 1 CAP PO ×3 (08:44→20:30)
[2019-08-27] MEDS: Pantoprazole 40 MG TABCR PO (08:45)
[2019-08-27] MEDS: predniSONE 20 MG TAB 40 MG PO (08:45)
[2019-08-27] MEDS: Terazosin 2 MG CAP 4 MG PO ×2 (08:45→20:30)
[2019-08-27] MEDS: Venlafaxine 37.5 MG CAPCR 112.5 MG PO (08:45)
[2019-08-27] MEDS: Gabapentin 300 MG CAP PO ×3 (08:45→20:30)
[2019-08-27] MEDS: Ascorbic Acid 500 MG TAB 250 MG PO ×2 (08:45→20:30)
[2019-08-27] MEDS: Apixaban 2.5 MG TAB PO ×2 (08:46→20:31)
[2019-08-27] MEDS: amLODIPine 5 MG TAB 10 MG PO (08:46)
[2019-08-27] MEDS: oxyCODONE 5 MG TAB PO ×3 (08:46→22:41)
[2019-08-27] MEDS: Ferrous Sulfate 325 MG TAB PO ×2 (08:46→20:30)
[2019-08-27] MEDS: Protein Nutritional Supplement 16 GM 1 OUNCE PACKET PO ×3 (08:47→20:29)
[2019-08-27 15:02] LABS: Bilirubin Negative (Negative); Blood Negative (Negative); Clarity Sl Cloudy (Clear); Glucose Negative (Negative); Ketones Negative (Negative); Leukocyte Esterase Large (Negative); Nitrite Positive (Negative); Specific Gravity 1.015 (1.005-1.025); Urobilinogen 0.2 EU/dL (Up TO 0.2)
[2019-08-27 15:05] VITALS: BP 154/72; PULSE 81; RESP 19; TEMP 37.1; O2SAT 97
[2019-08-27 15:09] LABS: WBC >50 HPF (0-5)
[2019-08-27 15:16] LABS: C & S Indicated? Yes
[2019-08-27] MEDS: Amoxicillin 875/Clav. 125 TAB PO (20:30)
[2019-08-27 20:31] VITALS: BP 144/70; PULSE 76; RESP 18; TEMP 37.3; O2SAT 95
[2019-08-27] MEDS: Insulin Glargine 300 UNITS/3 ML PEN 50 UNITS SC (22:39)
[2019-08-27] MEDS: Levothyroxine 25 MCG TAB 12.5 MCG PO (22:41)
[2019-08-27] MEDS: risperiDONE 0.5 MG TAB 1.5 MG PO (22:42)
[2019-08-28] MEDS: Melatonin 3 MG TAB PO (00:27)
[2019-08-28 03:36] VITALS: BP 121/65; PULSE 60; RESP 18; TEMP 36.3; O2SAT 98
[2019-08-28] MEDS: Calcium 600mg/Vit D 200U TAB 1 TAB PO ×2 (06:28→17:20)
[2019-08-28 07:20] VITALS: BP 169/68; PULSE 71; RESP 19; TEMP 36.3; O2SAT 99
[2019-08-28] MEDS: predniSONE 20 MG, predniSONE 10 MG, predniSONE 5 MG 35 MG PO (08:23)
[2019-08-28] MEDS: Lactobacillus Acidophilus CAP 1 CAP PO ×3 (08:23→19:25)
[2019-08-28] MEDS: Ascorbic Acid 500 MG TAB 250 MG PO ×2 (08:24→19:25)
[2019-08-28] MEDS: Terazosin 2 MG CAP 4 MG PO ×2 (08:24→19:24)
[2019-08-28] MEDS: Gabapentin 300 MG CAP PO ×3 (08:24→19:25)
[2019-08-28] MEDS: Venlafaxine 37.5 MG CAPCR 112.5 MG PO (08:24)
[2019-08-28] MEDS: Protein Nutritional Supplement 16 GM 1 OUNCE PACKET PO ×3 (08:25→19:25)
[2019-08-28] MEDS: Apixaban 2.5 MG TAB PO ×2 (08:25→19:25)
[2019-08-28] MEDS: Ferrous Sulfate 325 MG TAB PO ×2 (08:25→19:25)
[2019-08-28] MEDS: Pantoprazole 40 MG TABCR PO (08:25)
[2019-08-28] MEDS: amLODIPine 5 MG TAB 10 MG PO (08:25)
[2019-08-28] MEDS: Amoxicillin 875/Clav. 125 TAB PO ×2 (08:25→19:24)
[2019-08-28] MEDS: Insulin Glargine 300 UNITS/3 ML PEN 15 UNITS SC (08:26)
[2019-08-28] MEDS: Normal Saline Flush 10 ML SYR IVP (08:26)
[2019-08-28] MEDS: hydrALAZINE 25 MG TAB 50 MG PO ×4 (08:27→19:24)
[2019-08-28] MEDS: Insulin Aspart 300 UNITS/3 ML PEN SC ×4 (08:27→21:18)
[2019-08-28] MEDS: Insulin Aspart 300 UNITS/3 ML PEN 18 UNITS SC ×3 (08:27→16:29)
[2019-08-28] MEDS: Doxycycline Hyclate 100 MG CAP PO (09:28)
[2019-08-28] MEDS: Furosemide 20 MG/2 ML VIAL IVP (09:28)
[2019-08-28 09:52] LABS: Anion Gap 10.8 mmol/L (3-11); BUN 78 mg/dL (7-18); CO2 19.2 mmol/L (21.0-32.0); CREATININE 2.35 mg/dL (0.70-1.30); Calcium 8.6 mg/dL (8.5-10.1); Chloride 108 mmol/L (98-107); Estimated GFR 28.44 (mL/min/1.73m2); Glucose 259 mg/dL (74-106); Potassium 3.9 mmol/L (3.5-5.1); Sodium 138 mmol/L (136-145)
--- NOTE | 2019-08-28 11:10 | NUR.NOTE ---
Nursing Note: Lab line draw and stat lasix given prior to 10 per md order
--- NOTE | 2019-08-28 14:05 | NUR.NOTE ---
Nursing Note: Picc line dressing intact, not needed to be changed today. Left foot dressing was changed per order. Wound vac dressing intact. Patient has voided 725 cc prior to lunch as a result of the lasix push
[2019-08-28 15:25] VITALS: BP 151/74; PULSE 86; RESP 20; TEMP 36.8; O2SAT 95
[2019-08-28] MEDS: Normal Saline Flush 10 ML SYR 20 ML IVP (19:28)
[2019-08-28] MEDS: Levothyroxine 25 MCG TAB 12.5 MCG PO (21:15)
[2019-08-28] MEDS: risperiDONE 0.5 MG TAB 1.5 MG PO (21:15)
[2019-08-28] MEDS: Insulin Glargine 300 UNITS/3 ML PEN 50 UNITS SC (21:17)
[2019-08-29] MEDS: Melatonin 3 MG TAB PO (00:53)
[2019-08-29 05:53] VITALS: BP 138/70; PULSE 65; RESP 17; TEMP 36.6; O2SAT 97
[2019-08-29] MEDS: Calcium 600mg/Vit D 200U TAB 1 TAB PO ×2 (06:11→18:44)
[2019-08-29 07:33] LABS: Abs Immature Grans 0.49 k/cumm (0.0-0.09); HCT 30.8 % (40.0-50.0); HGB 9.3 g/dL (13.5-17.5); Mean Corp. HGB Concentration 30.2 g/dL (32.0-36.0); Mean Corpuscular Hemoglobin 24.4 pg (27.0-33.0); Mean Corpuscular Volume 80.8 fL (80-95); Mean Platelet Volume 9.6 fL (8.0-11.0); Platelet Count 201 x1000/uL (130-400); RBC 3.81 m/cumm (4.50-6.00); RBC Distribution Width 21.9 % (11.8-14.1)
[2019-08-29 07:42] LABS: Anion Gap 10.3 mmol/L (3-11); BUN 76 mg/dL (7-18); CO2 19.7 mmol/L (21.0-32.0); CREATININE 2.04 mg/dL (0.70-1.30); Calcium 8.7 mg/dL (8.5-10.1); Chloride 112 mmol/L (98-107); Estimated GFR 33.48 (mL/min/1.73m2); Glucose 165 mg/dL (74-106); Magnesium 1.5 mg/dL (1.8-2.4); Potassium 4.5 mmol/L (3.5-5.1); Sodium 142 mmol/L (136-145)
[2019-08-29 07:50] VITALS: BP 165/76; PULSE 71; RESP 19; TEMP 36.5; O2SAT 99
[2019-08-29 07:58] LABS: Absolute Lymphocyte Count 0.89 k/cumm (1.2-3.4); Absolute Monocyte Count 0.79 k/cumm (0.11-0.7); Absolute Neutrophil Count 8.22 k/cumm (1.2-6.7); Anisocytosis 2+; Diff Comment Manual Differential; Hypochromasia 2+; Microcytosis 2+
[2019-08-29 07:59] LABS: Poikilocytes 2+; Polychromasia Present
[2019-08-29] MEDS: Venlafaxine 37.5 MG CAPCR 112.5 MG PO (08:59)
[2019-08-29] MEDS: Terazosin 2 MG CAP 4 MG PO ×2 (09:00→20:35)
[2019-08-29] MEDS: predniSONE 20 MG, predniSONE 10 MG, predniSONE 5 MG 35 MG PO (09:00)
[2019-08-29] MEDS: Ascorbic Acid 500 MG TAB 250 MG PO ×2 (09:02→20:36)
[2019-08-29] MEDS: Amoxicillin 875/Clav. 125 TAB PO ×2 (09:02→20:35)
[2019-08-29] MEDS: hydrALAZINE 25 MG TAB 50 MG PO ×4 (09:04→20:35)
[2019-08-29] MEDS: Ferrous Sulfate 325 MG TAB PO ×2 (09:04→20:36)
[2019-08-29] MEDS: Gabapentin 300 MG CAP PO ×3 (09:05→20:36)
[2019-08-29] MEDS: amLODIPine 5 MG TAB 10 MG PO (09:05)
[2019-08-29] MEDS: Lactobacillus Acidophilus CAP 1 CAP PO ×3 (09:05→20:35)
[2019-08-29] MEDS: Pantoprazole 40 MG TABCR PO (09:06)
[2019-08-29] MEDS: Apixaban 2.5 MG TAB PO ×2 (09:06→20:35)
[2019-08-29] MEDS: Protein Nutritional Supplement 16 GM 1 OUNCE PACKET PO ×3 (09:07→20:35)
[2019-08-29] MEDS: Insulin Aspart 300 UNITS/3 ML PEN SC ×4 (09:08→21:41)
[2019-08-29] MEDS: Insulin Aspart 300 UNITS/3 ML PEN 18 UNITS SC ×3 (09:10→17:01)
[2019-08-29] MEDS: Normal Saline Flush 10 ML SYR 20 ML IVP ×2 (09:18→20:37)
[2019-08-29] MEDS: MAGNESIUM SULFATE 4 GM/100 ML BAG IVPB (09:19)
[2019-08-29] MEDS: Insulin Glargine 300 UNITS/3 ML PEN 15 UNITS SC (09:53)
[2019-08-29] MEDS: Doxycycline Hyclate 100 MG CAP PO (10:27)
[2019-08-29 15:20] VITALS: BP 140/74; PULSE 77; RESP 20; TEMP 36.9; O2SAT 97
[2019-08-29] MEDS: oxyCODONE 5 MG TAB PO (15:32)
[2019-08-29] MEDS: risperiDONE 0.5 MG TAB 1.5 MG PO (21:38)
[2019-08-29] MEDS: Levothyroxine 25 MCG TAB 12.5 MCG PO (21:39)
[2019-08-29] MEDS: Insulin Glargine 300 UNITS/3 ML PEN 50 UNITS SC (21:40)
[2019-08-29 23:06] VITALS: BP 152/75; PULSE 72; RESP 18; TEMP 36.9; O2SAT 97
[2019-08-30] MEDS: Melatonin 3 MG TAB PO (00:36)
[2019-08-30] MEDS: Calcium 600mg/Vit D 200U TAB 1 TAB PO ×2 (06:03→17:45)
[2019-08-30] MEDS: Gabapentin 300 MG CAP PO ×3 (08:52→20:13)
[2019-08-30] MEDS: Lactobacillus Acidophilus CAP 1 CAP PO ×3 (08:52→20:13)
[2019-08-30] MEDS: Terazosin 2 MG CAP 4 MG PO ×2 (08:52→20:12)
[2019-08-30] MEDS: hydrALAZINE 25 MG TAB 50 MG PO ×4 (08:53→20:13)
[2019-08-30] MEDS: Venlafaxine 37.5 MG CAPCR 112.5 MG PO (08:53)
[2019-08-30] MEDS: amLODIPine 5 MG TAB 10 MG PO (08:53)
[2019-08-30] MEDS: predniSONE 20 MG, predniSONE 10 MG, predniSONE 5 MG 35 MG PO (08:54)
[2019-08-30] MEDS: Amoxicillin 875/Clav. 125 TAB PO ×2 (08:54→20:12)
[2019-08-30] MEDS: Ascorbic Acid 500 MG TAB 250 MG PO ×2 (08:55→20:13)
[2019-08-30] MEDS: Pantoprazole 40 MG TABCR PO (08:55)
[2019-08-30] MEDS: Apixaban 2.5 MG TAB PO ×2 (08:56→20:12)
[2019-08-30] MEDS: Ferrous Sulfate 325 MG TAB PO ×2 (08:56→20:13)
[2019-08-30] MEDS: Insulin Aspart 300 UNITS/3 ML PEN SC ×4 (08:56→23:00)
[2019-08-30] MEDS: Insulin Aspart 300 UNITS/3 ML PEN 18 UNITS SC ×3 (08:57→17:45)
[2019-08-30] MEDS: Normal Saline Flush 10 ML SYR 20 ML IVP ×2 (08:59→20:14)
[2019-08-30] MEDS: Protein Nutritional Supplement 16 GM 1 OUNCE PACKET PO ×3 (09:00→20:14)
[2019-08-30] MEDS: Insulin Glargine 300 UNITS/3 ML PEN 15 UNITS SC (09:03)
[2019-08-30 09:07] VITALS: BP 147/75; PULSE 77; RESP 18; TEMP 36.4; O2SAT 96
[2019-08-30] MEDS: Doxycycline Hyclate 100 MG CAP PO (10:41)
--- NOTE | 2019-08-30 10:44 | CMPROGNOTE_ITS ---
- If Service Date Differs Date of service: 08/30/19 Time of Service: 10:45 Care Management Progress Note S/O: Brendan remains SB1 today plan will be for him to return to the [facility] on Friday. Awaiting urine C/S to ensure appropriate abx coverage. KATELYN reviewed the plan with the [facility] and spoke with MACARENA Ferguson. Wound vac and supplies are at the facility. They have requested the PICC line be d/c'd which CM has communicated to the [facility]. KATELYN updated Zeynep at [facility] with the canceled transfer. A:Brendan is a 59 year old male admitted with MRSA bacteremia, with a complex medical history. P: Anticipate Brendan will transition back to the [facility] on Friday via [facility].
--- NOTE | 2019-08-30 10:57 | PGE_ITS ---
Date of Service Date of service: 08/30/19 Time of Service: 10:57 Assessment and Plan Assessment and plan (1) Decubitus ulcer, stage 4 with infection: Start date: 08/30/19 Start time: 10:58 Status: Resolved Assessment and plan: Debridement on 08/24, no pain. On augmentin. Wound vac. Continue treatment of wound per surgery (2) MRSA bacteremia: Start date: 08/30/19 Start time: 11:04 Status: Acute Assessment and plan: Finished course of Vancomycin WBC count normal. No F/C. (3) Poorly controlled type 2 diabetes mellitus with circulatory disorder: Start date: 08/30/19 Start time: 11:04 Status: Chronic Assessment and plan: Now improving with adjustments in insulin dosages. Consistent carb diet and monitor. (4) CKD (chronic kidney disease): Start date: 08/30/19 Start time: 11:04 Status: Chronic Assessment and plan: Surveillance labs. Lasix q 72 hours for HF and monitor daily wts. . Monitor. Avoid nephrotoxic agents. Qualifiers: Chronic kidney disease stage: unspecified stage Qualified Code(s): N18.9 - Chronic kidney disease, unspecified (5) Hypertension: Start date: 08/30/19 Start time: 11:06 Status: Chronic Assessment and plan: Labile. On amlodipine 10 mg daily and hydralazine 50 mg po QID Monitor Qualifiers: Hypertension type: essential hypertension Qualified Code(s): I10 - Essential (primary) hypertension (6) Obstructive sleep apnea: Start date: 08/30/19 Start time: 11:06 Status: Chronic Assessment and plan: Cont use of Trilogy (7) Anemia: Start date: 08/30/19 Start time: 11:06 Status: Chronic Assessment and plan: Hgb stable. Fe low at 30 continue Iron and vitamin C supplement. Monitor above case discussed with Dr. Canela who is in agreement. Qualifiers: Anemia type: due to chronic kidney disease Chronic kidney disease stage: stage 4 (severe) Qualified Code(s): N18.4 - Chronic kidney disease, stage 4 (severe); D63.1 - Anemia in chronic kidney disease Subjective Subjective Patient reports: no new complaints Interval history since last seen: Brendan is doing well. He states he likes the food here. Pain controlled. no N/V/D. urinating without difficulty. He denies CP, SOB. Exam Narrative Exam Narrative: He continues to be compliant with his Trilogy. Const General: cooperative Nutritional Appearance: obese Orientation: alert and oriented x3 Resp Effort & Inspection: normal respiratory effort Auscultation: clear to auscultation bilaterally and diminished lung sounds GI Inspection: obesity Palpation: soft and nontender Auscultation: normal bowel sounds Extrem General: normal to inspection, no calf tenderness bilaterally and edema (+1 chronic edema) Laterality: bilateral Objective Objective Clinical Data: Vital Signs Temperature 36.4 C L 08/30/19 09:07 Temperature Source Tympanic 08/30/19 09:07 Pulse 77 08/30/19 09:07 Pulse Rhythm Regular 08/30/19 04:00 Respiratory Rate 18 08/30/19 09:07 Respiratory Effort Non-Labored 08/30/19 04:00 Respiratory Depth Normal 08/30/19 04:00 Respiratory Pattern Normal 08/30/19 04:00 Blood Pressure 147/75 H 08/30/19 09:07 Pulse Oximetry 96 08/30/19 09:07 Oxygen Delivery Method Room Air 08/30/19 09:07 Oxygen Flow Rate 1 08/30/19 10:15 Pain Level 0 08/30/19 09:07 Comment 08/17/19 09:00 Intake & Output 08/29/19 08/29/19 08/30/19 11:59 23:59 11:59 Intake Total 1250 / 1250 740 / 740 Output Total 1775 / 4150 2375 / 4150 1875 / 1875 Balance -1775 / -2900 -1125 / -2900 -1135 / -1135 Weight 105.7 kg Intake: IV Oral 1230 / 1230 740 / 740 Output: Output, Wound Vac (mls) 350 / 350 Urine 1050 / 2350 1300 / 2350 1550 / 1550 Stool 725 / 1450 725 / 1450 325 / 325 Other: Urine Color Yellow Yellow Yellow Urine Appearance Clear Clear Clear Urine Odor Normal Normal Normal Stool Size Moderate Moderate Small Stool Characteristics Soft Soft Soft Liquid Brown Brown Voiding Methods Urinal Urinal Urinal Laboratory Results WBC 9.90 k/cumm (4.4-10.8) 08/29/19 06:40 RBC 3.81 m/cumm (4.50-6.00) L 08/29/19 06:40 Hgb 9.3 g/dL (13.5-17.5) L 08/29/19 06:40 Hct 30.8 % (40.0-50.0) L 08/29/19 06:40 MCV 80.8 fL (80-95) 08/29/19 06:40 MCH 24.4 pg (27.0-33.0) L 08/29/19 06:40 MCHC 30.2 g/dL (32.0-36.0) L 08/29/19 06:40 RDW 21.9 % (11.8-14.1) H 08/29/19 06:40 Plt Count 201 x1000/uL (130-400) 08/29/19 06:40 MPV 9.6 fL (8.0-11.0) 08/29/19 06:40 Immature Gran % 0.0 % 08/29/19 06:40 Neutrophils % 83.0 08/29/19 06:40 Lymphocytes % 9.0 08/29/19 06:40 Monocytes % 8.0 08/29/19 06:40 Eosinophils % 0.0 08/29/19 06:40 Basophils % 0.0 08/29/19 06:40 Absolute Neutrophils 8.22 k/cumm (1.2-6.7) H 08/29/19 06:40 Absolute Lymphocytes 0.89 k/cumm (1.2-3.4) L 08/29/19 06:40 Absolute Monocytes 0.79 k/cumm (0.11-0.7) H 08/29/19 06:40 Absolute Eosinophils 0.00 k/cumm (0.0-0.7) 08/29/19 06:40 Absolute Basophils 0.00 k/cumm (0.0-0.2) 08/29/19 06:40 Differential Comment Manual differential 08/29/19 06:40 RBC Morphology See below 08/29/19 06:40 Polychromasia Present 08/29/19 06:40 Hypochromasia 2+ 08/29/19 06:40 Poikilocytosis 2+ 08/29/19 06:40 Anisocytosis 2+ 08/29/19 06:40 Microcytosis 2+ 08/29/19 06:40 Ovalocytes 2+ 08/16/19 06:25 Sodium 142 mmol/L (136-145) 08/29/19 06:40 Potassium 4.5 mmol/L (3.5-5.1) 08/29/19 06:40 Chloride 112 mmol/L (98-107) H 08/29/19 06:40 Carbon Dioxide 19.7 mmol/L (21.0-32.0) L 08/29/19 06:40 Anion Gap 10.3 mmol/L (3-11) 08/29/19 06:40 BUN 76 mg/dL (7-18) H 08/29/19 06:40 Creatinine 2.04 mg/dL (0.70-1.30) H 08/29/19 06:40 Estimated GFR/1.73 m2 33.48 (mL/min/1.73m2) 08/29/19 06:40 Glucose 165 mg/dL (74-106) H D 08/29/19 06:40 Calcium 8.7 mg/dL (8.5-10.1) 08/29/19 06:40 Magnesium 1.5 mg/dL (1.8-2.4) L 08/29/19 06:40 Iron 30 ug/dL (65-175) L 08/16/19 06:25 TIBC 249 ug/dL (250-450) L 08/16/19 06:25 Transferrin % Sat 12 % (20-55) L 08/16/19 06:25 Albumin 2.8 g/dL (3.4-5.0) L 08/16/19 06:25 Urine Color Yellow (Yellow) 08/27/19 14:50 Urine Clarity Sl cloudy (Clear) 08/27/19 14:50 Urine pH 6.0 (5-8) 08/27/19 14:50 Ur Specific [place] 1.015 (1.005-1.025) 08/27/19 14:50 Urine Protein 30 mg/dL (Negative) H 08/27/19 14:50 Urine Ketones Negative mg/dL (Negative) 08/27/19 14:50 Urine Blood Negative (Negative) 08/27/19 14:50 Urine Nitrite Positive (Negative) H 08/27/19 14:50 Urine Bilirubin Negative (Negative) 08/27/19 14:50 Urine Urobilinogen 0.2 EU/dL (Up TO 0.2) 08/27/19 14:50 Ur Leukocyte Esterase Large (Negative) H 08/27/19 14:50 Urine RBC HPF (0-2) 08/27/19 14:50 Urine WBC >50 HPF (0-5) H 08/27/19 14:50 Ur Epithelial Cells HPF (Negative) 08/27/19 14:50 Urine Crystals HPF (Negative) 08/27/19 14:50 Urine Bacteria HPF (Negative) 08/27/19 14:50 Urine Casts LPF (Negative) 08/27/19 14:50 Urine Mucus (Negative) 08/27/19 14:50 Urine Other (Negative) 08/27/19 14:50 Ur Culture Indicated? Yes 08/27/19 14:50 Urine Glucose Negative mg/dL (Negative) 08/27/19 14:50 Vancomycin Trough 16.4 ug/mL (10.0-20.0) 08/20/19 09:18 COVID-19 PCR Negative (Negative) 08/26/19 11:45 Nasopharyn COVID-19 PCR Not Applicable 08/26/19 11:45 Ref Test Perform Site [place] [facility] 08/26/19 11:45
[2019-08-30] MEDS: Furosemide 40 MG TAB PO (12:34)
--- NOTE | 2019-08-30 14:16 | CHAPLAIN ---
Brendan said he was planning on being discharged today, back to the [facility], but a new infection will keep him here another day or two. He said he doesn't mind staying here a bit longer. He has meet the new doctor at the [facility] several times, he said and likes her. He talked about what it's like to live at the [facility] and how he feels the care there is.
[2019-08-30 15:04] LABS: Bilirubin Negative (Negative); Blood Negative (Negative); Clarity Clear (Clear); Glucose Negative (Negative); Ketones Negative (Negative); Leukocyte Esterase Moderate (Negative); Nitrite Negative (Negative); Specific Gravity 1.015 (1.005-1.025); Urobilinogen 0.2 EU/dL (Up TO 0.2)
[2019-08-30 15:17] LABS: Bacteria Few HPF (Negative); Epithelial Cells Few HPF (Negative); WBC >50 HPF (0-5)
[2019-08-30 15:18] LABS: C & S Indicated? Yes; Crystals Negative HPF (Negative)
[2019-08-30 15:46] VITALS: BP 149/69; PULSE 75; RESP 16; TEMP 37.5; O2SAT 97
[2019-08-30] MEDS: Fosfomycin Tromethamine 3 GM PACKET PO (17:46)
[2019-08-30 19:26] VITALS: BP 160/75; PULSE 81; RESP 19; TEMP 37.1; O2SAT 97
[2019-08-30] MEDS: risperiDONE 0.5 MG TAB 1.5 MG PO (22:59)
[2019-08-30] MEDS: Levothyroxine 25 MCG TAB 12.5 MCG PO (22:59)
[2019-08-30] MEDS: Insulin Glargine 300 UNITS/3 ML PEN 50 UNITS SC (23:01)
[2019-08-31] MEDS: Melatonin 3 MG TAB PO (00:12)
[2019-08-31 03:48] VITALS: BP 133/79; PULSE 69; RESP 19; TEMP 36.7; O2SAT 98
[2019-08-31] MEDS: Calcium 600mg/Vit D 200U TAB 1 TAB PO ×2 (05:11→17:11)
[2019-08-31 07:12] LABS: Abs Immature Grans 0.41 k/cumm (0.0-0.09); HCT 32.3 % (40.0-50.0); HGB 9.9 g/dL (13.5-17.5); Mean Corp. HGB Concentration 30.7 g/dL (32.0-36.0); Mean Corpuscular Hemoglobin 24.5 pg (27.0-33.0); Mean Platelet Volume 9.3 fL (8.0-11.0); Platelet Count 207 x1000/uL (130-400); RBC 4.04 m/cumm (4.50-6.00); RBC Distribution Width 21.5 % (11.8-14.1); White Blood Cell Count 9.06 k/cumm (4.4-10.8)
--- NOTE | 2019-08-31 07:22 | OT.INDS ---
Date of service: 08/31/19 Time of Service: 07:22 Occupational Therapy Notes Occupational Therapy Inpatient [id number] Discharge Summary Date: 08/31/19 Dates of Service: 08/16/19-08/31/19 Referring Doctor: Priscila Canela MD OT Orders: Non-urgent: Limited Ability Precautions: Fall, Standard PATIENT PROFILE/ADMITTING DIAGNOSIS: Pt is a 59 year old male who presented to the ER from the [facility] for MRSA bacteremia and stage IV sacral decubitus status post debridement on 07/25/2019 and 07/26/2019. Past Medical History: Acromegaly (Chronic) Acute on chronic kidney failure (Resolved) Adrenal insufficiency (Chronic) Ambulatory dysfunction (Chronic) Anemia (Chronic) Atrial flutter, paroxysmal (Chronic) Back pain (Chronic 06/21/13) CAD (coronary artery disease) (Chronic) Cardiopulmonary arrest with successful resuscitation (Resolved) Cholelithiasis (Chronic) Chronic anxiety (Chronic) Chronic bipolar disorder (Chronic) a. With history of psychosis. Chronic cholecystitis (Chronic) Chronic insomnia (Chronic) Chronic pain (Chronic) On both Methadone and Fentanyl as well as Ultram and Naproxen. CKD (chronic kidney disease) (Chronic) Complicated UTI (urinary tract infection) (Resolved) Diabetes mellitus (Chronic) Diabetic foot ulcer (Chronic) Diabetic ulcer of toe associated with diabetes mellitus due to underlying condition, with bone involvement without evidence of necrosis (Inactive) 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 (Resolved) Dyslipidemia (Chronic) Elevated troponin I level (Resolved) Endocarditis due to Staphylococcus (Resolved) Heme positive stool (Resolved) Hemorrhagic cystitis (Chronic) Hyperkalemia (Acute) Hypertension (Chronic) Hypomagnesemia (Chronic) Hypothyroidism (Chronic) Impaired mobility and ADLs (Chronic) Inability to get out of bed (Chronic 06/21/13) Lactic acidosis (Resolved) MRSA bacteremia (Resolved) Obesity (Chronic) a. Obesity though he has had significant weight loss since last seen. Osteoarthritis of both knees (Chronic) Severe. a. [id number] bilateral knees. 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 2 diabetes mellitus (Resolved) Palliative care encounter (Chronic) DObbertin Pedal edema (Chronic) Poor self care (Chronic 06/21/13) Poorly controlled type 2 diabetes mellitus with circulatory disorder (Chronic) Presence of IVC filter (Acute) Pulmonary hypertension (Chronic) Rheumatoid arthritis (Chronic) Sepsis (Resolved) Septic arthritis of elbow, right (Inactive) Toxic metabolic encephalopathy (Resolved) Toxic metabolic encephalopathy (Resolved) Ulcerative colitis (Chronic) UTI (urinary tract infection) (Resolved) UTI (urinary tract infection) due to Enterococcus (Resolved) Surgical History Arthroplasty of knee (Resolved 03/18/12) irrigation and lavage right Fracture, Open Treatment (Resolved) 06/06/17[place] [place] S/P ORIF RIGHT DISTAL HUMERUS FRACTURE History of insertion of T-tube into biliary tract (Chronic) S/P colectomy (Chronic) Social History/Home Situation: Pt resides at [facility]. Pt is well known to OT. He had surgery on his (R) UE to remove a metal plate in his (R) elbow last year, and is still recovering with AROM for his (R). He notes that he is receiving PT/OT since last admission at the [facility] and notes that he requires (A) with bathing, dressing due to his weakness. Equipment owned/DME: FWW which he uses for ambulation, he is a resident of SNF so all other DME are met through the facility. SUBJECTIVE: NT OBJECTIVE: General Observation: Remarkable edema (R) UE, pt is weak and tired. He is able to perform minimal AROM of (B) UE and decreased mobility of (B) LE. Mental Status: A&Ox3 Bathing- Sitting on side of the bed pt is able to (I) wash his face, (B) hands and (B) thighs with min (A) due to his decreased strength. Dressing- Mod (A) don and doffing hospital gown with min vc throughout for lifting of (B) UE. Max (A) don and doffing (B) socks. Eating- (I) with food to mouth translation. Grooming- Mod (A) with brushing hair as pt does not have functional ROM required to reach back of his head. Functional Mobility- Supine-sit: (S) Sit-stand: CGAx2, FWW, min vc Stand-sit: CGAx2, Min vc Rolling from side to side: Mod (A) with min vc ROM: RUE Shoulder flexion ~70*, elbow flexion to 80*, decreased hand/digit ROM L UE Shoulder flexion ~60-65*, elbow flexion to 80* remarkable edema noted. STRENGTH: RUE shoulder flexion 3/5, bicep 2+/5, tricep 2+/5, java sql developer is weak and symmetrical LUE modified testing shoulder/elbow pt is 2/5 throughout java sql developer is weak and symmetrical BALANCE: Static sitting Normal Dynamic Sitting Good Static Standing Poor Dynamic Standing Poor ASSESSMENT: Patient is a 59-year-old male referred to occupational therapy services for MRSA bacteremia and stage IV sacral decubitus status post debridement on 07/25/2019 and 07/26/2019.He was transitioned to [facility] rehabilitation program and was seen for 9 skilled OT sessions. In this time, pts (B) UE ROM both actively and passively has significantly improved. He is able to perform his modified bathing routines with (A) including his face, Upper (B) LE in the seated position and his chest/abdomen. He functionally is presenting more at his baseline level of function. His (R) edema has significantly decreased at this time compared to initial consult which has increased his functional (I). He still is stiff in his (B) UE and notes a slight pain but this is more from stretching and strengthening than an on going issue. Per care management note plan is for pt to transition back to [facility] today. Due to this, OT will discharge pt from skilled OT services at this time. GOALS Bathing- Sitting on side of bed pt will be able to wash his face and thighs with min (A)- Met Eating- pt will be able to (I) bring food to mouth- met Dressing- pt will require mod (A) to [facility] go- met with vc to (A) with lifting (B) UE PLAN OF CARE/TREATMENT PLAN: Discharge from skilled OT services. Plan is for pt to return to the [facility] today. DISCHARGE RECOMMENDATIONS Return to [facility] when medically cleared per MD. Eating Routine- OT recommends built up handles for utensils with red foam as pt has decreased gross and fine motor control of (B) UE and digits. TREATMENT TIME/MINUTES/CODES N/A Suzanne Javier OTR/L [facility]
[2019-08-31 07:31] LABS: Anion Gap 8.8 mmol/L (3-11); CO2 19.2 mmol/L (21.0-32.0); CREATININE 1.83 mg/dL (0.70-1.30); Calcium 8.9 mg/dL (8.5-10.1); Chloride 110 mmol/L (98-107); Estimated GFR 37.95 (mL/min/1.73m2); Glucose 127 mg/dL (74-106); Magnesium 2.4 mg/dL (1.8-2.4); Potassium 4.2 mmol/L (3.5-5.1); Sodium 138 mmol/L (136-145)
[2019-08-31 07:33] LABS: BUN 82 mg/dL (7-18)
[2019-08-31 07:45] VITALS: BP 138/73; PULSE 61; RESP 20; TEMP 36.3; O2SAT 97
[2019-08-31 07:50] LABS: Absolute Eosinophil Count 0.09 k/cumm (0.0-0.7); Absolute Monocyte Count 0.54 k/cumm (0.11-0.7); Absolute Neutrophil Count 6.98 k/cumm (1.2-6.7); Nucleated RBC 1 /100WBC
[2019-08-31 07:51] LABS: Anisocytosis 2+; Diff Comment Manual Differential; Hypochromasia 2+; Polychromasia Present
[2019-08-31 07:52] LABS: Poikilocytes 2+
[2019-08-31] MEDS: Amoxicillin 875/Clav. 125 TAB PO ×2 (09:47→20:28)
[2019-08-31] MEDS: Terazosin 2 MG CAP 4 MG PO ×2 (09:47→20:31)
[2019-08-31] MEDS: Gabapentin 300 MG CAP PO ×3 (09:47→20:30)
[2019-08-31] MEDS: predniSONE 20 MG, predniSONE 10 MG, predniSONE 5 MG 35 MG PO (09:48)
[2019-08-31] MEDS: amLODIPine 5 MG TAB 10 MG PO (09:48)
[2019-08-31] MEDS: hydrALAZINE 25 MG TAB 50 MG PO ×4 (09:49→20:30)
[2019-08-31] MEDS: Venlafaxine 37.5 MG CAPCR 112.5 MG PO (09:49)
[2019-08-31] MEDS: Apixaban 2.5 MG TAB PO ×2 (09:49→20:30)
[2019-08-31] MEDS: Ferrous Sulfate 325 MG TAB PO ×2 (09:50→20:30)
[2019-08-31] MEDS: Pantoprazole 40 MG TABCR PO (09:50)
[2019-08-31] MEDS: Lactobacillus Acidophilus CAP 1 CAP PO ×3 (09:50→20:30)
[2019-08-31] MEDS: Protein Nutritional Supplement 16 GM 1 OUNCE PACKET PO ×3 (09:51→20:28)
[2019-08-31] MEDS: Insulin Aspart 300 UNITS/3 ML PEN 18 UNITS SC ×3 (10:04→17:11)
[2019-08-31] MEDS: Insulin Glargine 300 UNITS/3 ML PEN 15 UNITS SC (10:05)
--- NOTE | 2019-08-31 10:05 | DIABASSESS_ITS ---
Date of service: 08/31/19 Time of Service: 10:05 Diabetes Note NOTE: Brendan continues to tolerate current diet order, is allowed to get one cheeseburger per week per MD order. No issues with gastroparesis despite increase in fiber/residue with weekly cheeseburger. Will continue to honor p atient request of weekly burger. Blood sugars continue to be elevated, and now with elevated BUN/Cre indicating decline in kidney function. Following Diabetic, low residue , low salt, soft bite size diet, supplemented with liquid protein 1 oz TID. Current protein intake provides 1.15 g protein per kg. If BUN, Cre continue to be significantly elevated, recommend d/c liquid protein and reduce protein intake of 0.8 g pro/kg. Weight has been stable x 7 days ranging from 106-107 kg. Time Spent in Nutritional Counseling and Treatment: 10 min spent face to face
[2019-08-31] MEDS: Ascorbic Acid 500 MG TAB 250 MG PO ×2 (10:12→20:28)
[2019-08-31] MEDS: Doxycycline Hyclate 100 MG CAP PO (10:35)
[2019-08-31] MEDS: Normal Saline Flush 10 ML SYR 20 ML IVP ×2 (10:36→20:31)
[2019-08-31] MEDS: Normal Saline Flush 10 ML SYR IVP (10:41)
[2019-08-31] MEDS: Insulin Aspart 300 UNITS/3 ML PEN SC ×3 (12:35→21:41)
[2019-08-31 15:10] VITALS: BP 152/68; PULSE 83; RESP 20; TEMP 37.2; O2SAT 95
--- NOTE | 2019-08-31 19:55 | W.PALPGNOTE ---
Date of service: 08/31/19 Time of Service: 17:55 Assessment and Plan Assessment and plan (1) Sacral wound: Status: Acute (2) UTI (urinary tract infection): Status: Acute (3) Palliative care encounter: Status: Chronic Assessment and plan: The overall plan for Brendan is to return to the [facility] once he has a Downing in place. He is anxious to get back to some of the people he knows. He wonders about staff change. Today I saw him asking questions for their outside of himself. This is a change. UTI was treated and cleared of Downing will put in so that he can keep his sacral wound clean Sacral wound there has not been much change in this in 6 weeks. He did have some debridement recently. The overall plan is for him to continue with the wound VAC, but I do not have high hopes that this is going to truly make a difference as it has not yet in 6 weeks He remains full code Subjective Subjective Interval history since last seen: 01 presently has a UTI. The overall plan is that once he clears his UTI then they will put a Downing in. The reason for the Downing is that he continues to get urine in his sacral wound. Once this is in place the plan is for him to go back to the [facility]. He is anxious to get back to the [facility]. Additionally he knows that the [facility] will have a wound VAC waiting for him. There was some discussion as to whether or not they would have this available due to payment issues. Exam Narrative Exam Narrative: Brendan is sitting on the side of the bed. He has finished up his food every last bit of it. He does need to have his colostomy changed in its done while I am in the room. He was very polite and thankful to all of the staff . He also asked about me, my , and children. Something that he has never done before. His heart was regular, lungs clear, abdomen slightly distended. Objective Objective Clinical Data: Abnormal lab results 08/31/19 08/31/19 Range/Units 06:50 06:50 RBC 4.04 L (4.50-6.00) m/cumm Hgb 9.9 L (13.5-17.5) g/dL Hct 32.3 L (40.0-50.0) % MCH 24.5 L (27.0-33.0) pg MCHC 30.7 L (32.0-36.0) g/dL RDW 21.5 H (11.8-14.1) % Absolute Neutrophils 6.98 H (1.2-6.7) k/cumm Absolute Lymphocytes 1.00 L (1.2-3.4) k/cumm Chloride 110 H (98-107) mmol/L Carbon Dioxide 19.2 L (21.0-32.0) mmol/L BUN 82 H* (7-18) mg/dL Creatinine 1.83 H (0.70-1.30) mg/dL Glucose 127 H (74-106) mg/dL Vital Signs Temperature 99.0 F 08/31/19 15:10 Temperature Source Tympanic 08/31/19 15:10 Pulse 83 08/31/19 15:10 Pulse Rhythm Regular 08/31/19 14:06 Respiratory Rate 20 08/31/19 15:10 Respiratory Effort 08/31/19 14:06 Respiratory Depth Normal 08/31/19 14:06 Respiratory Pattern Normal 08/31/19 14:06 Blood Pressure 152/68 H 08/31/19 15:10 Pulse Oximetry 95 08/31/19 15:10 Oxygen Delivery Method Room Air 08/31/19 15:10 Oxygen Flow Rate 0 08/31/19 15:10 Pain Level 3 08/31/19 15:10 Comment 08/31/19 15:10 Intake & Output 08/30/19 08/31/19 08/31/19 23:59 11:59 23:59 Intake Total 690 / 1430 980 / 1940 960 / 1940 Output Total 3100 / 4975 2550 / 3600 1050 / 3600 Balance -2410 / -3545 -1570 / -1660 -90 / -1660 Weight 229 lb 15.074 oz Intake: IV 40 / 40 Oral 650 / 1390 980 / 1940 960 / 1940 Output: Urine 1200 / 2750 1700 / 2200 500 / 2200 Stool 1900 / 2225 850 / 1400 550 / 1400 Other: Urine Color Yellow Yellow Yellow Urine Appearance Clear Clear Clear Urine Odor Foul Normal Normal Stool Size Moderate Moderate Stool Characteristics Soft Liquid Liquid Brown Voiding Methods Urinal Urinal Urinal Laboratory Results WBC 9.06 k/cumm (4.4-10.8) 08/31/19 06:50 RBC 4.04 m/cumm (4.50-6.00) L 08/31/19 06:50 Hgb 9.9 g/dL (13.5-17.5) L 08/31/19 06:50 Hct 32.3 % (40.0-50.0) L 08/31/19 06:50 MCV 80.0 fL (80-95) 08/31/19 06:50 MCH 24.5 pg (27.0-33.0) L 08/31/19 06:50 MCHC 30.7 g/dL (32.0-36.0) L 08/31/19 06:50 RDW 21.5 % (11.8-14.1) H 08/31/19 06:50 Plt Count 207 x1000/uL (130-400) 08/31/19 06:50 MPV 9.3 fL (8.0-11.0) 08/31/19 06:50 Immature Gran % See Differential 08/31/19 06:50 Neutrophils % 77.0 08/31/19 06:50 Lymphocytes % 11.0 08/31/19 06:50 Monocytes % 6.0 08/31/19 06:50 Eosinophils % 1.0 08/31/19 06:50 Basophils % 0.0 08/31/19 06:50 Metamyelocytes % 1.0 % 08/31/19 06:50 Myelocytes % 4.0 % 08/31/19 06:50 Absolute Neutrophils 6.98 k/cumm (1.2-6.7) H 08/31/19 06:50 Absolute Lymphocytes 1.00 k/cumm (1.2-3.4) L 08/31/19 06:50 Absolute Monocytes 0.54 k/cumm (0.11-0.7) 08/31/19 06:50 Absolute Eosinophils 0.09 k/cumm (0.0-0.7) 08/31/19 06:50 Absolute Basophils 0.00 k/cumm (0.0-0.2) 08/31/19 06:50 Nucleated RBCs 1 /100WBC 08/31/19 06:50 Differential Comment Manual differential 08/31/19 06:50 RBC Morphology See below 08/31/19 06:50 Polychromasia Present 08/31/19 06:50 Hypochromasia 2+ 08/31/19 06:50 Poikilocytosis 2+ 08/31/19 06:50 Anisocytosis 2+ 08/31/19 06:50 Microcytosis 2+ 08/29/19 06:40 Ovalocytes 2+ 08/16/19 06:25 Sodium 138 mmol/L (136-145) 08/31/19 06:50 Potassium 4.2 mmol/L (3.5-5.1) 08/31/19 06:50 Chloride 110 mmol/L (98-107) H 08/31/19 06:50 Carbon Dioxide 19.2 mmol/L (21.0-32.0) L 08/31/19 06:50 Anion Gap 8.8 mmol/L (3-11) 08/31/19 06:50 BUN 82 mg/dL (7-18) H* 08/31/19 06:50 Creatinine 1.83 mg/dL (0.70-1.30) H 08/31/19 06:50 Estimated GFR/1.73 m2 37.95 (mL/min/1.73m2) 08/31/19 06:50 Glucose 127 mg/dL (74-106) H 08/31/19 06:50 Calcium 8.9 mg/dL (8.5-10.1) 08/31/19 06:50 Magnesium 2.4 mg/dL (1.8-2.4) 08/31/19 06:50 Iron 30 ug/dL (65-175) L 08/16/19 06:25 TIBC 249 ug/dL (250-450) L 08/16/19 06:25 Transferrin % Sat 12 % (20-55) L 08/16/19 06:25 Albumin 2.8 g/dL (3.4-5.0) L 08/16/19 06:25 Urine Color Yellow (Yellow) 08/30/19 14:40 Urine Clarity Clear (Clear) 08/30/19 14:40 Urine pH 6.0 (5-8) 08/30/19 14:40 Ur Specific [place] 1.015 (1.005-1.025) 08/30/19 14:40 Urine Protein 30 mg/dL (Negative) H 08/30/19 14:40 Urine Ketones Negative mg/dL (Negative) 08/30/19 14:40 Urine Blood Negative (Negative) 08/30/19 14:40 Urine Nitrite Negative (Negative) 08/30/19 14:40 Urine Bilirubin Negative (Negative) 08/30/19 14:40 Urine Urobilinogen 0.2 EU/dL (Up TO 0.2) 08/30/19 14:40 Ur Leukocyte Esterase Moderate (Negative) H 08/30/19 14:40 Urine RBC Not Applicable 08/30/19 14:40 Urine WBC >50 HPF (0-5) H 08/30/19 14:40 Ur Epithelial Cells Few HPF (Negative) 08/30/19 14:40 Urine Crystals Negative HPF (Negative) 08/30/19 14:40 Urine Bacteria Few HPF (Negative) 08/30/19 14:40 Urine Casts LPF (Negative) 08/27/19 14:50 Urine Mucus Not Applicable 08/30/19 14:40 Urine Other (Negative) 08/27/19 14:50 Ur Culture Indicated? Yes 08/30/19 14:40 Urine Glucose Negative mg/dL (Negative) 08/30/19 14:40 Vancomycin Trough 16.4 ug/mL (10.0-20.0) 08/20/19 09:18 COVID-19 PCR Negative (Negative) 08/26/19 11:45 Nasopharyn COVID-19 PCR Not Applicable 08/26/19 11:45 Ref Test Perform Site [facility] lab 08/26/19 11:45
[2019-08-31] MEDS: Insulin Glargine 300 UNITS/3 ML PEN 50 UNITS SC (21:39)
[2019-08-31] MEDS: risperiDONE 0.5 MG TAB 1.5 MG PO (21:41)
[2019-08-31] MEDS: Levothyroxine 25 MCG TAB 12.5 MCG PO (21:42)
[2019-08-31 21:44] VITALS: BP 137/66; PULSE 80; RESP 20; TEMP 37.1; O2SAT 96
[2019-09-01] MEDS: Melatonin 3 MG TAB PO (00:20)
[2019-09-01 03:15] VITALS: BP 142/66; PULSE 78; RESP 20; TEMP 37; O2SAT 97
[2019-09-01] MEDS: Calcium 600mg/Vit D 200U TAB 1 TAB PO ×2 (06:06→17:49)
[2019-09-01 07:48] VITALS: BP 151/94; PULSE 65; RESP 22; TEMP 36.5; O2SAT 97
[2019-09-01] MEDS: Protein Nutritional Supplement 16 GM 1 OUNCE PACKET PO ×3 (08:48→19:43)
[2019-09-01] MEDS: Amoxicillin 875/Clav. 125 TAB PO ×2 (08:49→19:41)
[2019-09-01] MEDS: predniSONE 20 MG, predniSONE 10 MG, predniSONE 5 MG 35 MG PO (08:49)
[2019-09-01] MEDS: Terazosin 2 MG CAP 4 MG PO ×2 (08:49→19:41)
[2019-09-01] MEDS: Gabapentin 300 MG CAP PO ×3 (08:49→19:41)
[2019-09-01] MEDS: Ascorbic Acid 500 MG TAB 250 MG PO ×2 (08:50→19:41)
[2019-09-01] MEDS: Lactobacillus Acidophilus CAP 1 CAP PO ×3 (08:51→19:41)
[2019-09-01] MEDS: Apixaban 2.5 MG TAB PO ×2 (08:51→19:41)
[2019-09-01] MEDS: hydrALAZINE 25 MG TAB 50 MG PO ×4 (08:51→19:41)
[2019-09-01] MEDS: Pantoprazole 40 MG TABCR PO (08:51)
[2019-09-01] MEDS: Ferrous Sulfate 325 MG TAB PO ×2 (08:52→19:41)
[2019-09-01] MEDS: Venlafaxine 37.5 MG CAPCR 112.5 MG PO (08:52)
[2019-09-01] MEDS: amLODIPine 5 MG TAB 10 MG PO (08:52)
[2019-09-01] MEDS: Insulin Aspart 300 UNITS/3 ML PEN 18 UNITS SC ×3 (08:55→16:54)
[2019-09-01] MEDS: Insulin Glargine 300 UNITS/3 ML PEN 15 UNITS SC (08:57)
[2019-09-01] MEDS: Normal Saline Flush 10 ML SYR 20 ML IVP ×2 (08:58→19:44)
[2019-09-01] MEDS: Normal Saline Flush 10 ML SYR IVP (08:59)
[2019-09-01] MEDS: Furosemide 20 MG/2 ML VIAL IVP (09:10)
[2019-09-01] MEDS: Doxycycline Hyclate 100 MG CAP PO (09:10)
[2019-09-01 10:52] LABS: Bilirubin Negative (Negative); Blood Negative (Negative); Clarity Clear (Clear); Glucose Negative (Negative); Ketones Negative (Negative); Leukocyte Esterase Small (Negative); Nitrite Negative (Negative); Specific Gravity 1.015 (1.005-1.025); Urobilinogen 0.2 EU/dL (Up TO 0.2); pH 5.5 (5-8)
[2019-09-01 11:15] LABS: RBC Negative HPF (0-2); WBC 20-50 HPF (0-5)
[2019-09-01 11:16] LABS: Bacteria Negative HPF (Negative); Crystals Rare Uric Acid HPF (Negative); Epithelial Cells Rare HPF (Negative); Mucus Negative (Negative); Other Cells Rare Renal (Negative)
[2019-09-01 11:17] LABS: C & S Indicated? Yes; Casts 0-2 Coarse Granular LPF (Negative)
[2019-09-01] MEDS: Insulin Aspart 300 UNITS/3 ML PEN SC ×3 (12:06→21:55)
[2019-09-01] MEDS: oxyCODONE 5 MG TAB PO (14:13)
[2019-09-01 16:54] VITALS: BP 144/76; PULSE 79; RESP 18; TEMP 36.8; O2SAT 97
[2019-09-01] MEDS: risperiDONE 0.5 MG TAB 1.5 MG PO (21:52)
[2019-09-01] MEDS: Levothyroxine 25 MCG TAB 12.5 MCG PO (21:53)
[2019-09-01] MEDS: Insulin Glargine 300 UNITS/3 ML PEN 50 UNITS SC (21:54)
[2019-09-02 00:30] VITALS: BP 168/90; PULSE 80; RESP 20; TEMP 36.9; O2SAT 98
[2019-09-02] MEDS: Melatonin 3 MG TAB PO (00:48)
[2019-09-02] MEDS: Calcium 600mg/Vit D 200U TAB 1 TAB PO ×2 (06:22→17:53)
[2019-09-02 08:25] VITALS: BP 148/75; PULSE 63; RESP 20; TEMP 36.1; O2SAT 97
[2019-09-02] MEDS: Terazosin 2 MG CAP 4 MG PO ×2 (09:14→20:17)
[2019-09-02] MEDS: Amoxicillin 875/Clav. 125 TAB PO ×2 (09:15→20:18)
[2019-09-02] MEDS: amLODIPine 5 MG TAB 10 MG PO (09:15)
[2019-09-02] MEDS: Venlafaxine 37.5 MG CAPCR 112.5 MG PO (09:15)
[2019-09-02] MEDS: Gabapentin 300 MG CAP PO ×3 (09:15→20:19)
[2019-09-02] MEDS: Doxycycline Hyclate 100 MG CAP PO (09:16)
[2019-09-02] MEDS: Pantoprazole 40 MG TABCR PO (09:16)
[2019-09-02] MEDS: predniSONE 20 MG, predniSONE 10 MG, predniSONE 5 MG 35 MG PO (09:16)
[2019-09-02] MEDS: Ferrous Sulfate 325 MG TAB PO ×2 (09:17→20:19)
[2019-09-02] MEDS: Lactobacillus Acidophilus CAP 1 CAP PO ×3 (09:17→20:17)
[2019-09-02] MEDS: hydrALAZINE 25 MG TAB 50 MG PO ×4 (09:17→20:18)
[2019-09-02] MEDS: Apixaban 2.5 MG TAB PO ×2 (09:17→20:19)
[2019-09-02] MEDS: Ascorbic Acid 500 MG TAB 250 MG PO ×2 (09:17→20:18)
[2019-09-02] MEDS: Normal Saline Flush 10 ML SYR 20 ML IVP ×2 (09:21→20:19)
[2019-09-02] MEDS: Insulin Aspart 300 UNITS/3 ML PEN SC ×4 (09:23→21:49)
[2019-09-02] MEDS: Insulin Aspart 300 UNITS/3 ML PEN 18 UNITS SC ×3 (09:25→16:35)
[2019-09-02] MEDS: Insulin Glargine 300 UNITS/3 ML PEN 15 UNITS SC (09:27)
[2019-09-02] MEDS: Protein Nutritional Supplement 16 GM 1 OUNCE PACKET PO ×3 (09:27→20:19)
--- NOTE | 2019-09-02 09:35 | W.PM.PROGNOT ---
Date of Service Date of service: 09/03/19 Time of Service: 09:35 Assessment and Plan Assessment and plan (1) Sacral wound: Status: Acute Assessment and plan: Wound location Size: Width 7 cm Length 11 cm Depth 2cm Undermining: yes Wound Base: granular:5% Slough: 20% Slough is particularly noted from the 12:00 to 3 o'clock position. This was sharp debrided today. Pressure held and minimal bleeding noted. We will continue with wound VAC dressing. At this point he is getting some wound contraction and some granulation tissue in in the wound bed. We need to ensure that the entire wound is packed with black foam. In order for this to granulate in and for maximum fluid management. There is minimal the skin maceration of the surrounding tissue but nothing significant at this time or that requires any treatment or intervention. The wound bed looks clean and no signs of recurrent infection. There is no recurrent MRSA. He does not need to be in isolation from a surgical standpoint. Patient has problems with getting urine into his wound. At this point the wound VAC does provide an occlusive dressing to clean and manage fluids. He has been a lot of drainage from the wound. We are also continue to keep a Ruiz in him. I think he has neurogenic bladder and chronic retention from longstanding poorly controlled diabetes mellitus. I think the Ruiz is necessary to prevent contamination of his wound and to prevent neurogenic bladder and sepsis. This benefit outweighs the risk of colonization and chronic UTIs from Ruiz catheters. Surrounding Tissue: mild yeast Pain:mild Signs of infection: no Abx: not for wound. on augmentin for UTI left #3 metatarsal Wound location Size: Width 1 cm Length 1 cm Depth .5cm Undermining: no Wound Base: granular:30% Slough: 70 Surrounding Tissue: intact. no redness Pain:feet insensate Signs of infection: no Abx: not for wound. on augmentin for UTI Patient has hard leathery eschar about 40 to 50% of the wound on the from the top to the 6 o'clock position. This is sharply curetted. From the 12 to 6 o'clock position on the medial side of the wound there is a little bit of slough muscles removed. Pressure is held. There is no significant bleeding. Patient came into the hospital with this wound. It was noninfected at this time. This is longstanding chronic ulcer. Continue with medi honey and pressure-relief therapy. Standing to tolerance. (2) Diabetic gastroparesis: Status: Acute (3) Hep C w/o coma, chronic: Status: Chronic (4) Protein-calorie malnutrition, mild: Status: Acute (5) Cholelithiasis and cholecystitis without obstruction: Status: Chronic Assessment and plan: Stable. Patient is NOT a surgical candidate (6) Poorly controlled type 2 diabetes mellitus with circulatory disorder: Status: Chronic (7) Diabetic ulcer of left foot associated with diabetes mellitus due to underlying condition: Status: Acute Assessment and plan: Wound care: [place] honey and nonstick dressing. This ulcer is a longstanding nature. He may have an underlying osteo-. He did undergo 3 days of IV Vanco. He came into the hospital with this wound. Today it looks good. There is no signs of infection. It was sharply debrided today. There is no significant bleeding associated with it. See above. Continued keep wound bed moist. Walk to tolerance. Subjective Subjective Interval history since last seen: no vomiting. He is eating ok. He is having stools. no fever/chills. He has a ruiz in place. Objective Objective Clinical Data: Abnormal lab results 09/01/19 Range/Units 10:30 Urine Protein 30 H (Negative) mg/dL Ur Leukocyte Esterase Small H (Negative) Urine WBC 20-50 H (0-5) HPF Vital Signs Temperature 36.1 C L 09/02/19 08:25 Temperature Source Tympanic 09/02/19 08:25 Pulse 63 09/02/19 08:25 Pulse Rhythm Regular 09/02/19 00:30 Respiratory Rate 20 09/02/19 08:25 Respiratory Effort Non-Labored 09/02/19 00:30 Respiratory Depth Normal 09/02/19 00:30 Respiratory Pattern Normal 09/02/19 00:30 Blood Pressure 148/75 H 09/02/19 08:25 Pulse Oximetry 97 09/02/19 08:25 Oxygen Delivery Method Room Air 09/02/19 08:25 Oxygen Flow Rate 0 09/02/19 08:25 Pain Level 3 09/02/19 09:21 Comment 08/31/19 15:10 Intake & Output 09/01/19 09/01/19 09/02/19 11:59 23:59 11:59 Intake Total 920 / 1530 610 / 1530 100 / 100 Output Total 1625 / 4375 2750 / 4375 1575 / 1575 Balance -705 / -2845 -2140 / -2845 -1475 / -1475 Weight 104.9 kg 104.8 kg Intake: IV 60 / 60 Oral 920 / 1470 550 / 1470 100 / 100 Output: Urine 1175 / 2975 1800 / 2975 1200 / 1200 Stool 450 / 1400 950 / 1400 375 / 375 Other: Urine Color Pale Straw Yellow Yellow Urine Appearance Clear Clear Clear Urine Odor None Normal Normal Comment also spilled some urine on linen. Stool Characteristics Liquid Brown Voiding Methods Urinal Urinal Urinal Laboratory Results WBC 9.06 k/cumm (4.4-10.8) 08/31/19 06:50 RBC 4.04 m/cumm (4.50-6.00) L 08/31/19 06:50 Hgb 9.9 g/dL (13.5-17.5) L 08/31/19 06:50 Hct 32.3 % (40.0-50.0) L 08/31/19 06:50 MCV 80.0 fL (80-95) 08/31/19 06:50 MCH 24.5 pg (27.0-33.0) L 08/31/19 06:50 MCHC 30.7 g/dL (32.0-36.0) L 08/31/19 06:50 RDW 21.5 % (11.8-14.1) H 08/31/19 06:50 Plt Count 207 x1000/uL (130-400) 08/31/19 06:50 MPV 9.3 fL (8.0-11.0) 08/31/19 06:50 Immature Gran % See Differential 08/31/19 06:50 Neutrophils % 77.0 08/31/19 06:50 Lymphocytes % 11.0 08/31/19 06:50 Monocytes % 6.0 08/31/19 06:50 Eosinophils % 1.0 08/31/19 06:50 Basophils % 0.0 08/31/19 06:50 Metamyelocytes % 1.0 % 08/31/19 06:50 Myelocytes % 4.0 % 08/31/19 06:50 Absolute Neutrophils 6.98 k/cumm (1.2-6.7) H 08/31/19 06:50 Absolute Lymphocytes 1.00 k/cumm (1.2-3.4) L 08/31/19 06:50 Absolute Monocytes 0.54 k/cumm (0.11-0.7) 08/31/19 06:50 Absolute Eosinophils 0.09 k/cumm (0.0-0.7) 08/31/19 06:50 Absolute Basophils 0.00 k/cumm (0.0-0.2) 08/31/19 06:50 Nucleated RBCs 1 /100WBC 08/31/19 06:50 Differential Comment Manual differential 08/31/19 06:50 RBC Morphology See below 08/31/19 06:50 Polychromasia Present 08/31/19 06:50 Hypochromasia 2+ 08/31/19 06:50 Poikilocytosis 2+ 08/31/19 06:50 Anisocytosis 2+ 08/31/19 06:50 Microcytosis 2+ 08/29/19 06:40 Ovalocytes 2+ 08/16/19 06:25 Sodium 138 mmol/L (136-145) 08/31/19 06:50 Potassium 4.2 mmol/L (3.5-5.1) 08/31/19 06:50 Chloride 110 mmol/L (98-107) H 08/31/19 06:50 Carbon Dioxide 19.2 mmol/L (21.0-32.0) L 08/31/19 06:50 Anion Gap 8.8 mmol/L (3-11) 08/31/19 06:50 BUN 82 mg/dL (7-18) H* 08/31/19 06:50 Creatinine 1.83 mg/dL (0.70-1.30) H 08/31/19 06:50 Estimated GFR/1.73 m2 37.95 (mL/min/1.73m2) 08/31/19 06:50 Glucose 127 mg/dL (74-106) H 08/31/19 06:50 Calcium 8.9 mg/dL (8.5-10.1) 08/31/19 06:50 Magnesium 2.4 mg/dL (1.8-2.4) 08/31/19 06:50 Iron 30 ug/dL (65-175) L 08/16/19 06:25 TIBC 249 ug/dL (250-450) L 08/16/19 06:25 Transferrin % Sat 12 % (20-55) L 08/16/19 06:25 Albumin 2.8 g/dL (3.4-5.0) L 08/16/19 06:25 Urine Color Yellow (Yellow) 09/01/19 10:30 Urine Clarity Clear (Clear) 09/01/19 10:30 Urine pH 5.5 (5-8) 09/01/19 10:30 Ur Specific [place] 1.015 (1.005-1.025) 09/01/19 10:30 Urine Protein 30 mg/dL (Negative) H 09/01/19 10:30 Urine Ketones Negative mg/dL (Negative) 09/01/19 10:30 Urine Blood Negative (Negative) 09/01/19 10:30 Urine Nitrite Negative (Negative) 09/01/19 10:30 Urine Bilirubin Negative (Negative) 09/01/19 10:30 Urine Urobilinogen 0.2 EU/dL (Up TO 0.2) 09/01/19 10:30 Ur Leukocyte Esterase Small (Negative) H 09/01/19 10:30 Urine RBC Negative HPF (0-2) 09/01/19 10:30 Urine WBC 20-50 HPF (0-5) H 09/01/19 10:30 Ur Epithelial Cells Rare HPF (Negative) 09/01/19 10:30 Urine Crystals Rare uric acid HPF (Negative) 09/01/19 10:30 Urine Bacteria Negative HPF (Negative) 09/01/19 10:30 Urine Casts 0-2 coarse granular LPF (Negative) 09/01/19 10:30 Urine Mucus Negative (Negative) 09/01/19 10:30 Urine Other Rare renal (Negative) 09/01/19 10:30 Ur Culture Indicated? Yes 09/01/19 10:30 Urine Glucose Negative mg/dL (Negative) 09/01/19 10:30 Vancomycin Trough 16.4 ug/mL (10.0-20.0) 08/20/19 09:18 COVID-19 PCR Negative (Negative) 08/26/19 11:45 Nasopharyn COVID-19 PCR Not Applicable 08/26/19 11:45 Ref Test Perform Site [facility] lab 08/26/19 11:45
[2019-09-02 10:15] LABS: Bilirubin Negative (Negative); Blood Negative (Negative); Clarity Clear (Clear); Glucose Negative (Negative); Ketones Negative (Negative); Leukocyte Esterase Trace (Negative); Nitrite Negative (Negative); Specific Gravity 1.015 (1.005-1.025); Urobilinogen 0.2 EU/dL (Up TO 0.2)
[2019-09-02 10:30] LABS: Bacteria Negative HPF (Negative); C & S Indicated? Yes; Casts Negative LPF (Negative); Crystals Negative HPF (Negative); Epithelial Cells Rare HPF (Negative); Mucus Negative (Negative); RBC 0-2 HPF (0-2)
--- NOTE | 2019-09-02 12:26 | PDOC.CMACT ---
- If Service Date Differs Date of service: 09/02/19 Time of Service: 12:26 Care Management Activity Note S/O: Brendan remains in good spirits and interacts well with staff. Due to his physical limitations, Brendan is unable to participate in many of the activities offered on the cart. He does enjoy watching TV, talking to friends and family on the phone and visiting with staff. This morning Brendan shared that he was unaware of the change in visiting policy and requested that his friend Amador Nye be designated as his support person and be allowed to visit. Brendan was scheduled to have a Covid-19 test yesterday in preparation for returning to the [facility] today, but, according to Brendan, the swab was never done. When the lab was contacted by the nursing cutting supervisor, they confirmed that they never received the specimen. Brendan will need to remain at [facility] through the weekend as the [facility] is unable to accept him tomorrow or on the weekend. When this information was shared with Brendan, he was not unhappy, stating at least that will give me a few more days of good food. Brendan particularly looks forward to Fridays when he is allowed to have a cheeseburger. P: Brendan is scheduled to return to [facility] on Friday morning. He will transport via ambulance coordinated by . A wound vac with all necessary supplies has been ordered by [facility] and will be placed upon arrival. will continue to support Brendan, his family and discharge planning needs.
[2019-09-02] MEDS: oxyCODONE 5 MG TAB PO (14:37)
[2019-09-02 16:38] VITALS: BP 156/67; PULSE 86; RESP 20; TEMP 37.2; O2SAT 94
--- NOTE | 2019-09-02 19:41 | WOUNDCONS_ITS ---
- If Service Date Differs Date of service: 09/02/19 Time of Service: 19:41 Wound Initial Evaluation Narrative: Reevaluation of left foot wound and right calf wounds. Sacral wound being managed by the surgical service. Left calf wound is covered in epithelial tissue, no dressing needed at [facility]. Left foot wound on plantar aspect mechanically debrided with debrisoft lolly with scant improvement in removal of firmly adherent soft purple/ l[place] slough. Minimal serous drainage noted on prior dressing. Edges firmly adherent, wound measures 1.5 cm x 1 cm x 0.3 cm. Wound bed approximately 30 percent purple/london tissue, 70 percent pink tissue. surrounding skin normal pale tissue. Noted on Left great toe is a blister measuring approximately 1 cm x 0.8 cm. Blister is intact and skin prep applied. Reminded pateint and staff in room to reposition patient off area in bed as able, heel pillows applied to bilateral feet - Circulation, Sensation, Motion Peripheral Pulse Strength: Weak Capillary Refill: Greater than 3 seconds Sensation Description: Within Normal Limits, Numbness Skin Temperature: Warm Skin Color: Pale - Pain Pain Level: 0 Pain Scale Used: Donovan-Vargas Faces - Treatment/Dressing Change Topicals/Ointments: Medihoney Cleanse With: Saline Dressing Types: Sterile Gauze Dressing Comment: per Dr. Webb, no tape on skin applied - Recomendation Recomendation:: Cleanse wound on foot with normal saline, pat dry, apply medihoney to wound bed, cover with gauze and cling. Change daily and PRN. Follow up with podiatry. Referrals: Podiatry
[2019-09-02 21:00] VITALS: BP 146/74; PULSE 79; RESP 18; TEMP 37; O2SAT 95
[2019-09-02] MEDS: Levothyroxine 25 MCG TAB 12.5 MCG PO (21:46)
[2019-09-02] MEDS: risperiDONE 0.5 MG TAB 1.5 MG PO (21:47)
[2019-09-02] MEDS: Insulin Glargine 300 UNITS/3 ML PEN 50 UNITS SC (21:49)
[2019-09-03] MEDS: Melatonin 3 MG TAB PO (00:18)
[2019-09-03] MEDS: Calcium 600mg/Vit D 200U TAB 1 TAB PO ×2 (05:21→17:28)
[2019-09-03 08:00] VITALS: BP 178/82; PULSE 56; RESP 19; TEMP 36.2; O2SAT 98
[2019-09-03] MEDS: Terazosin 2 MG CAP 4 MG PO ×2 (09:17→20:25)
[2019-09-03] MEDS: Protein Nutritional Supplement 16 GM 1 OUNCE PACKET PO ×3 (09:17→20:24)
[2019-09-03] MEDS: Amoxicillin 875/Clav. 125 TAB PO (09:17)
[2019-09-03] MEDS: predniSONE 20 MG, predniSONE 10 MG, predniSONE 5 MG 35 MG PO (09:17)
[2019-09-03] MEDS: Gabapentin 300 MG CAP PO ×3 (09:18→20:26)
[2019-09-03] MEDS: amLODIPine 5 MG TAB 10 MG PO (09:18)
[2019-09-03] MEDS: Ferrous Sulfate 325 MG TAB PO ×2 (09:18→20:26)
[2019-09-03] MEDS: Pantoprazole 40 MG TABCR PO (09:18)
[2019-09-03] MEDS: Ascorbic Acid 500 MG TAB 250 MG PO ×2 (09:18→20:25)
[2019-09-03] MEDS: hydrALAZINE 25 MG TAB 50 MG PO ×4 (09:19→20:25)
[2019-09-03] MEDS: Doxycycline Hyclate 100 MG CAP PO (09:19)
[2019-09-03] MEDS: Apixaban 2.5 MG TAB PO ×2 (09:19→20:25)
[2019-09-03] MEDS: Venlafaxine 37.5 MG CAPCR 112.5 MG PO (09:19)
[2019-09-03] MEDS: Insulin Aspart 300 UNITS/3 ML PEN SC ×4 (09:20→22:41)
[2019-09-03] MEDS: Lactobacillus Acidophilus CAP 1 CAP PO ×3 (09:20→20:25)
[2019-09-03] MEDS: Insulin Aspart 300 UNITS/3 ML PEN 18 UNITS SC ×3 (09:21→17:27)
[2019-09-03] MEDS: Insulin Glargine 300 UNITS/3 ML PEN 15 UNITS SC (09:22)
[2019-09-03] MEDS: Normal Saline Flush 10 ML SYR 20 ML IVP ×2 (09:23→20:24)
[2019-09-03] MEDS: HYDROmorphone 2 MG/ML VIAL 1 MG IVP (12:12)
[2019-09-03] MEDS: Normal Saline Flush 10 ML SYR IVP ×2 (12:19→18:04)
[2019-09-03 12:45] LABS: Bilirubin Negative (Negative); Blood Negative (Negative); Clarity Clear (Clear); Glucose Negative (Negative); Ketones Negative (Negative); Leukocyte Esterase Trace (Negative); Nitrite Negative (Negative); Specific Gravity 1.015 (1.005-1.025); Urobilinogen 0.2 EU/dL (Up TO 0.2)
[2019-09-03 13:02] LABS: Epithelial Cells Rare HPF (Negative); WBC >50 HPF (0-5)
[2019-09-03 13:03] LABS: Bacteria Few HPF (Negative); C & S Indicated? Yes; Casts 0-2 Coarse Granular LPF (Negative); Crystals Negative HPF (Negative); Mucus Negative (Negative)
--- NOTE | 2019-09-03 14:30 | CHAPLAIN ---
Brendan was watching out the window when I visited. He kept his eye on a particular maple tree that has an interesting system of branches. Brendan will be here until Friday and is looking forward to his weekly gregoryburger tonight. He was told that he could have one visitor, and during another admission, he would like his friend Amador, from [place], to visit. He said his sister, who lives a couple of hours away, hasn't visited since he started living at the [facility]. Brendan continues to be pleasant and is comfortable staying here a few more days.
--- NOTE | 2019-09-03 14:33 | W.PM.PROGNOT ---
Date of Service Date of service: 09/03/19 Time of Service: 14:34 Subjective Subjective Patient reports: no new complaints Interval history since last seen: Brendan is seen at bedside. He is resting comfortably. He indicates that he may be going back to the [facility] on Friday. He has no new complaints at this time although he remains concerned about the wound on his left foot. Exam Narrative Exam Narrative: 59-year-old white male resting comfortably in bed looking far older than his stated age. DP and PT pulses are manually palpable at the ankles minus 2 out of 4 bilaterally. Capillary refill is under 3 seconds to all toes without edema. Calves are currently soft to palpation. Feet are warm to the touch. Dermatologic exam: Toenails are chronically fungal but adequately groomed at this time. Ulceration is appreciated under the left third metatarsal head and will be discussed under skeletal exam. Muscle groups are 5 out of 5 although he is significantly deconditioned Skeletal exam: Dressings are removed from his left foot. The left foot shows contractures of the lesser toes with plantar prominence of the metatarsal heads with advanced fat pad atrophy noted. The region under the left third metatarsal head remains ulcerated. The soft tissue in this area is extremely diminished with near complete fat pad atrophy noted. The third metatarsal head is pressing against the plantar ulcer with only a thin layer of joint capsule perhaps a little flexor tendon the bone from the wound bed. The wound currently measures 1.5 x 3 cm is full-thickness and was debrided this morning by Dr. Webb with scalpel and curette. Scant bloody oozing remains coming from the base of the wound but there is no undermining, odor or signs of infection. Previous radiographs that I ordered last week when not indicative of underlying osteomyelitis but significant osteopenia and degenerative arthritis appreciated throughout the forefoot. Subluxation at the MPJ levels appreciated. No cortical erosions or sequestrum or signs of osteomyelitis noted. 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 Furthermore, his generalized deconditioning, diabetes, chronic anemia will make this wound difficult to close. I am recommending continue topical wound care continue with the understanding that if osteomyelitis or infection ensue that surgical intervention would be appropriate in spite of his comorbidities. This chronic wound may benefit from advanced skin substitute engineering and I will order a Epifix 2 cm disc to initiate advanced wound care. We can do this while he remains in house and progressed to an outpatient, office-based procedure as needed. Objective Objective Clinical Data: Abnormal lab results 09/03/19 Range/Units 10:30 Urine Protein 100 H (Negative) mg/dL Ur Leukocyte Esterase Trace H (Negative) Urine RBC 3-5 H (0-2) HPF Urine WBC >50 H (0-5) HPF Vital Signs Temperature 36.2 C L 09/03/19 08:00 Temperature Source Tympanic 09/03/19 08:00 Pulse 56 L 09/03/19 08:00 Pulse Rhythm Regular 09/03/19 09:00 Respiratory Rate 19 09/03/19 08:00 Respiratory Effort 09/03/19 09:00 Respiratory Depth Normal 09/03/19 09:00 Respiratory Pattern Normal 09/03/19 09:00 Blood Pressure 178/82 H 09/03/19 08:00 Pulse Oximetry 98 09/03/19 08:00 Oxygen Delivery Method Room Air 09/03/19 08:00 Oxygen Flow Rate 1 09/03/19 13:20 Pain Level 2 09/03/19 08:00 Comment 08/31/19 15:10 Intake & Output 09/02/19 09/03/19 09/03/19 18:59 06:59 18:59 Intake Total 580 / 640 60 / 640 Output Total 1825 / 3200 1375 / 3200 500 / 500 Balance -1245 / -2560 -1315 / -2560 -500 / -500 Weight 105.5 kg Intake: IV 60 / 60 Oral 580 / 580 Output: Output, Wound Vac (mls) 125 / 250 125 / 250 Urine 350 / 1300 950 / 1300 200 / 200 Stool 1350 / 1650 300 / 1650 300 / 300 Other: Urine Color Pale Yellow Yellow Yellow Urine Appearance Clear Clear Clear Urine Odor Normal Normal Stool Characteristics Liquid Voiding Methods Urinal Urinal Urinal Incontinent Laboratory Results WBC 9.06 k/cumm (4.4-10.8) 08/31/19 06:50 RBC 4.04 m/cumm (4.50-6.00) L 08/31/19 06:50 Hgb 9.9 g/dL (13.5-17.5) L 08/31/19 06:50 Hct 32.3 % (40.0-50.0) L 08/31/19 06:50 MCV 80.0 fL (80-95) 08/31/19 06:50 MCH 24.5 pg (27.0-33.0) L 08/31/19 06:50 MCHC 30.7 g/dL (32.0-36.0) L 08/31/19 06:50 RDW 21.5 % (11.8-14.1) H 08/31/19 06:50 Plt Count 207 x1000/uL (130-400) 08/31/19 06:50 MPV 9.3 fL (8.0-11.0) 08/31/19 06:50 Immature Gran % See Differential 08/31/19 06:50 Neutrophils % 77.0 08/31/19 06:50 Lymphocytes % 11.0 08/31/19 06:50 Monocytes % 6.0 08/31/19 06:50 Eosinophils % 1.0 08/31/19 06:50 Basophils % 0.0 08/31/19 06:50 Metamyelocytes % 1.0 % 08/31/19 06:50 Myelocytes % 4.0 % 08/31/19 06:50 Absolute Neutrophils 6.98 k/cumm (1.2-6.7) H 08/31/19 06:50 Absolute Lymphocytes 1.00 k/cumm (1.2-3.4) L 08/31/19 06:50 Absolute Monocytes 0.54 k/cumm (0.11-0.7) 08/31/19 06:50 Absolute Eosinophils 0.09 k/cumm (0.0-0.7) 08/31/19 06:50 Absolute Basophils 0.00 k/cumm (0.0-0.2) 08/31/19 06:50 Nucleated RBCs 1 /100WBC 08/31/19 06:50 Differential Comment Manual differential 08/31/19 06:50 RBC Morphology See below 08/31/19 06:50 Polychromasia Present 08/31/19 06:50 Hypochromasia 2+ 08/31/19 06:50 Poikilocytosis 2+ 08/31/19 06:50 Anisocytosis 2+ 08/31/19 06:50 Microcytosis 2+ 08/29/19 06:40 Ovalocytes 2+ 08/16/19 06:25 Sodium 138 mmol/L (136-145) 08/31/19 06:50 Potassium 4.2 mmol/L (3.5-5.1) 08/31/19 06:50 Chloride 110 mmol/L (98-107) H 08/31/19 06:50 Carbon Dioxide 19.2 mmol/L (21.0-32.0) L 08/31/19 06:50 Anion Gap 8.8 mmol/L (3-11) 08/31/19 06:50 BUN 82 mg/dL (7-18) H* 08/31/19 06:50 Creatinine 1.83 mg/dL (0.70-1.30) H 08/31/19 06:50 Estimated GFR/1.73 m2 37.95 (mL/min/1.73m2) 08/31/19 06:50 Glucose 127 mg/dL (74-106) H 08/31/19 06:50 Calcium 8.9 mg/dL (8.5-10.1) 08/31/19 06:50 Magnesium 2.4 mg/dL (1.8-2.4) 08/31/19 06:50 Iron 30 ug/dL (65-175) L 08/16/19 06:25 TIBC 249 ug/dL (250-450) L 08/16/19 06:25 Transferrin % Sat 12 % (20-55) L 08/16/19 06:25 Albumin 2.8 g/dL (3.4-5.0) L 08/16/19 06:25 Urine Color Yellow (Yellow) 09/03/19 10:30 Urine Clarity Clear (Clear) 09/03/19 10:30 Urine pH 6.0 (5-8) 09/03/19 10:30 Ur Specific [place] 1.015 (1.005-1.025) 09/03/19 10:30 Urine Protein 100 mg/dL (Negative) H 09/03/19 10:30 Urine Ketones Negative mg/dL (Negative) 09/03/19 10:30 Urine Blood Negative (Negative) 09/03/19 10:30 Urine Nitrite Negative (Negative) 09/03/19 10:30 Urine Bilirubin Negative (Negative) 09/03/19 10:30 Urine Urobilinogen 0.2 EU/dL (Up TO 0.2) 09/03/19 10:30 Ur Leukocyte Esterase Trace (Negative) H 09/03/19 10:30 Urine RBC 3-5 HPF (0-2) H 09/03/19 10:30 Urine WBC >50 HPF (0-5) H 09/03/19 10:30 Ur Epithelial Cells Rare HPF (Negative) 09/03/19 10:30 Urine Crystals Negative HPF (Negative) 09/03/19 10:30 Urine Bacteria Few HPF (Negative) 09/03/19 10:30 Urine Casts 0-2 coarse granular LPF (Negative) 09/03/19 10:30 Urine Mucus Negative (Negative) 09/03/19 10:30 Urine Other Rare renal (Negative) 09/01/19 10:30 Ur Culture Indicated? Yes 09/03/19 10:30 Urine Glucose Negative mg/dL (Negative) 09/03/19 10:30 Vancomycin Trough 16.4 ug/mL (10.0-20.0) 08/20/19 09:18 COVID-19 PCR Cancelled 09/01/19 18:02 Nasopharyn COVID-19 PCR Cancelled 09/01/19 18:02 Ref Test Perform Site Cancelled 09/01/19 18:02
[2019-09-03 16:51] VITALS: BP 155/73; PULSE 80; RESP 19; TEMP 37; O2SAT 97
[2019-09-03] MEDS: MEROPENEM 1 GM in Normal Saline 100 ML IVPB (18:04)
[2019-09-03] MEDS: IRON SUCROSE COMPLEX 300 MG in Normal Saline 250 ML 167 MG IVPB (18:56)
[2019-09-03] MEDS: Levothyroxine 25 MCG TAB 12.5 MCG PO (22:39)
[2019-09-03] MEDS: risperiDONE 0.5 MG TAB 1.5 MG PO (22:39)
[2019-09-03] MEDS: Insulin Glargine 300 UNITS/3 ML PEN 50 UNITS SC (22:40)
[2019-09-03 23:05] VITALS: BP 133/69; PULSE 80; RESP 20; TEMP 37.5; O2SAT 95
--- NOTE | 2019-09-04 | RT.EKG_ITS ---
APPROVED REPORT Exam: Resting ECG Patient Location: I HR:85 bpm ECG Measurements Heart Rate 85 AXIS WV 181 P 43 QRSd 109 QRS 38 QT 384 T 65 QTc 455 <Conclusion> Sinus rhythm...normal P axis, V-rate 60- 99 Atrial premature complex...SV complex w/ short R-R interval Probable left atrial enlargement...P >50mS, <-0.10mV V1
[2019-09-04] MEDS: Melatonin 3 MG TAB PO (00:02)
[2019-09-04] MEDS: MEROPENEM 1 GM in Normal Saline 100 ML IVPB ×3 (01:41→18:09)
[2019-09-04] MEDS: Normal Saline Flush 10 ML SYR IVP ×2 (01:42→16:31)
[2019-09-04 03:00] LABS: COVID-19 RT-PCR UVMMC Result Negative (Negative)
[2019-09-04] MEDS: Calcium 600mg/Vit D 200U TAB 1 TAB PO ×2 (06:17→18:12)
[2019-09-04 08:23] VITALS: BP 168/56; PULSE 85; RESP 20; TEMP 36.7; O2SAT 97
[2019-09-04] MEDS: Venlafaxine 37.5 MG CAPCR 112.5 MG PO (10:00)
[2019-09-04] MEDS: Gabapentin 300 MG CAP PO ×3 (10:00→20:09)
[2019-09-04] MEDS: Doxycycline Hyclate 100 MG CAP PO (10:01)
[2019-09-04] MEDS: Pantoprazole 40 MG TABCR PO (10:01)
[2019-09-04] MEDS: predniSONE 10 MG TAB 30 MG PO (10:01)
[2019-09-04] MEDS: Terazosin 2 MG CAP 4 MG PO ×2 (10:01→20:07)
[2019-09-04] MEDS: Ascorbic Acid 500 MG TAB 250 MG PO ×2 (10:02→20:07)
[2019-09-04] MEDS: Apixaban 2.5 MG TAB PO ×2 (10:02→20:09)
[2019-09-04] MEDS: Ferrous Sulfate 325 MG TAB PO ×2 (10:02→20:07)
[2019-09-04] MEDS: hydrALAZINE 25 MG TAB 50 MG PO ×4 (10:02→20:07)
[2019-09-04] MEDS: Lactobacillus Acidophilus CAP 1 CAP PO ×3 (10:03→20:08)
[2019-09-04] MEDS: amLODIPine 5 MG TAB 10 MG PO (10:03)
[2019-09-04] MEDS: Normal Saline Flush 10 ML SYR 20 ML IVP ×2 (10:03→20:09)
[2019-09-04] MEDS: Protein Nutritional Supplement 16 GM 1 OUNCE PACKET PO ×3 (10:05→20:09)
[2019-09-04] MEDS: Insulin Aspart 300 UNITS/3 ML PEN 18 UNITS SC ×3 (10:07→18:09)
[2019-09-04] MEDS: Insulin Glargine 300 UNITS/3 ML PEN 15 UNITS SC (10:09)
[2019-09-04] MEDS: Insulin Aspart 300 UNITS/3 ML PEN SC ×3 (12:33→22:18)
[2019-09-04] MEDS: Lidocaine 2% Jelly 11 ML SYR (14:16)
[2019-09-04 15:31] VITALS: BP 160/74; PULSE 84; RESP 20; TEMP 37; O2SAT 94
[2019-09-04] MEDS: oxyCODONE 5 MG TAB PO (15:35)
[2019-09-04 15:48] VITALS: PULSE 80; RESP 32; RESP 4; O2SAT 93
[2019-09-04] MEDS: Albuterol/Ipratropium 3 ML UPD VIAL IH (15:48)
--- NOTE | 2019-09-04 16:00 | DI.RAD_ITS ---
EXAM: XR PORTABLE CHEST AP CLINICAL HISTORY: dyspnea TECHNIQUE: 2D digital imaging was performed. COMPARISON: CR,XR XR PORTABLE CHEST AP POST LINE from 08/01/2019 FINDINGS: MEDIASTINUM: Normal. HEART: Upper limits of normal in size given the projection. PULMONARY VASCULATURE: Prominence of the pulmonary vasculature. LUNGS: Increased interstitial lung markings throughout. Opacity in the right lung base which may rep resent atelectasis or pneumonia. PLEURAL SPACE: Small right pleural effusion. No pneumothorax. BONE:Normal. OTHER FINDINGS:The tip of the left PICC line is stable and terminates at the caval atrial junction. IMPRESSION: 1. Prominence of the pulmonary vasculature and interstitium with a small pleural effusion. Congestiv e heart failure should be considered. 2. Opacity in the right lung base which may represent a superimposed pneumonia or atelectasis. DATA REPOSITORY: RADIATION DOSE DELIVERED:
[2019-09-04] MEDS: Furosemide 40 MG/4 ML VIAL IVP (16:30)
[2019-09-04 16:49] VITALS: BP 170/74; PULSE 84; RESP 22; TEMP 37; O2SAT 94
--- NOTE | 2019-09-04 16:49 | DI.VRAD_ITS ---
PROCEDURE INFORMATION: Exam: XR Chest, 1 View Exam date and time: 09/04/2019 4:19 PM Age: 59 years old Clinical indication: Other: Dyspnea TECHNIQUE: Imaging protocol: XR of the chest Views: 1 view. COMPARISON: CR XR PORTABLE CHEST AP POST LINE 08/01/2019 11:34 AM FINDINGS: Tubes, catheters and devices: Left PICC line terminates in the superior vena cava Lungs: Opacity in the right base may represent atelectasis or pneumonia. Pleural space: There may be mild right pleural effusion Heart/Mediastinum: Cardiomegaly Bones/joints: Unremarkable. IMPRESSION: Opacity in the right base may represent atelectasis or pneumonia. Dictated and Authenticated by: Mike Whitlock MD. Ordering:[facility] Phillip Jackson MD
[2019-09-04 17:09] LABS: ALT 31 U/L (16-63); AST 12 U/L (15-37); Alkaline Phosphatase 87 U/L (46-116); Anion Gap 10.5 mmol/L (3-11); Bilirubin, Total 0.3 mg/dL (0.2-1.0); CO2 17.5 mmol/L (21.0-32.0); Calcium 8.8 mg/dL (8.5-10.1); Chloride 110 mmol/L (98-107); Estimated GFR 34.25 (mL/min/1.73m2); Glucose 257 mg/dL (74-106); NT-proBNP 461 pg/mL (<300); Potassium 5.5 mmol/L (3.5-5.1); Sodium 138 mmol/L (136-145); Total Protein 6.2 g/dL (6.4-8.2); Troponin I < 0.05 ng/mL (<0.06)
[2019-09-04 17:11] LABS: BUN 90 mg/dL (7-18)
[2019-09-04] MEDS: Normal Saline 500 ML 30 ML IV (18:09)
--- NOTE | 2019-09-04 18:47 | NUR.NOTE ---
Nursing Note: I have reviewed the charting of Whitley Riddle RN and find it complete
[2019-09-04] MEDS: risperiDONE 0.5 MG TAB 1.5 MG PO (22:15)
[2019-09-04] MEDS: Levothyroxine 25 MCG TAB 12.5 MCG PO (22:16)
[2019-09-04] MEDS: Insulin Glargine 300 UNITS/3 ML PEN 50 UNITS SC (22:17)
[2019-09-04 23:58] VITALS: BP 145/70; PULSE 74; RESP 18; TEMP 37; O2SAT 94
[2019-09-05] MEDS: Melatonin 3 MG TAB PO ×2 (00:31→23:51)
[2019-09-05] MEDS: Normal Saline Flush 10 ML SYR IVP ×2 (02:28→21:28)
[2019-09-05] MEDS: MEROPENEM 1 GM in Normal Saline 100 ML IVPB ×2 (02:29→09:42)
[2019-09-05] MEDS: Calcium 600mg/Vit D 200U TAB 1 TAB PO ×2 (06:33→17:57)
[2019-09-05 07:21] LABS: Abs Immature Grans 0.92 k/cumm (0.0-0.09); HCT 32.8 % (40.0-50.0); HGB 10.1 g/dL (13.5-17.5); Mean Corp. HGB Concentration 30.8 g/dL (32.0-36.0); Mean Corpuscular Hemoglobin 24.3 pg (27.0-33.0); Mean Corpuscular Volume 78.8 fL (80-95); Mean Platelet Volume 9.4 fL (8.0-11.0); Platelet Count 216 x1000/uL (130-400); RBC 4.16 m/cumm (4.50-6.00); RBC Distribution Width 21.5 % (11.8-14.1); White Blood Cell Count 12.12 k/cumm (4.4-10.8)
[2019-09-05 07:37] LABS: CREATININE 1.92 mg/dL (0.70-1.30); Calcium 8.6 mg/dL (8.5-10.1); Chloride 110 mmol/L (98-107); Glucose 147 mg/dL (74-106); NT-proBNP 495 pg/mL (<300); Potassium 4.1 mmol/L (3.5-5.1); Sodium 141 mmol/L (136-145)
[2019-09-05 07:41] LABS: BUN 92 mg/dL (7-18)
[2019-09-05 07:43] LABS: Absolute Eosinophil Count 0.24 k/cumm (0.0-0.7); Absolute Lymphocyte Count 1.09 k/cumm (1.2-3.4); Absolute Monocyte Count 0.61 k/cumm (0.11-0.7); Absolute Neutrophil Count 9.57 k/cumm (1.2-6.7)
[2019-09-05 07:44] LABS: Anisocytosis 3+; Diff Comment Manual Differential; Nucleated RBC 1 /100WBC
[2019-09-05 07:45] LABS: Hypochromasia 1+
[2019-09-05 07:46] LABS: Acanthocytes 1+; Basophilic Stippling Present; Microcytosis 2+; Polychromasia Present
[2019-09-05 07:48] LABS: Poikilocytes 2+
[2019-09-05 08:00] VITALS: BP 126/76; PULSE 84; RESP 18; TEMP 36.4; O2SAT 95
[2019-09-05] MEDS: Gabapentin 300 MG CAP PO ×3 (09:28→21:18)
[2019-09-05] MEDS: Doxycycline Hyclate 100 MG CAP PO (09:29)
[2019-09-05] MEDS: Apixaban 2.5 MG TAB PO ×2 (09:29→21:19)
[2019-09-05] MEDS: predniSONE 10 MG TAB 30 MG PO (09:29)
[2019-09-05] MEDS: amLODIPine 5 MG TAB 10 MG PO (09:29)
[2019-09-05] MEDS: Ferrous Sulfate 325 MG TAB PO ×2 (09:30→21:19)
[2019-09-05] MEDS: Terazosin 2 MG CAP 4 MG PO ×2 (09:30→21:18)
[2019-09-05] MEDS: Pantoprazole 40 MG TABCR PO (09:30)
[2019-09-05] MEDS: Lactobacillus Acidophilus CAP 1 CAP PO ×3 (09:31→21:18)
[2019-09-05] MEDS: Venlafaxine 37.5 MG CAPCR 112.5 MG PO (09:31)
[2019-09-05] MEDS: Protein Nutritional Supplement 16 GM 1 OUNCE PACKET PO ×3 (09:32→21:18)
[2019-09-05] MEDS: Ascorbic Acid 500 MG TAB 250 MG PO ×2 (09:32→21:19)
[2019-09-05] MEDS: hydrALAZINE 25 MG TAB 50 MG PO ×4 (09:32→21:19)
[2019-09-05] MEDS: Insulin Glargine 300 UNITS/3 ML PEN 15 UNITS SC (09:33)
[2019-09-05] MEDS: Normal Saline Flush 10 ML SYR 20 ML IVP ×2 (09:33→21:27)
[2019-09-05] MEDS: Insulin Aspart 300 UNITS/3 ML PEN 18 UNITS SC ×3 (09:34→17:58)
[2019-09-05] MEDS: Insulin Aspart 300 UNITS/3 ML PEN SC ×3 (12:45→21:20)
[2019-09-05 15:47] VITALS: BP 153/65; PULSE 78; RESP 20; TEMP 37.1; O2SAT 96
[2019-09-05] MEDS: risperiDONE 0.5 MG TAB 1.5 MG PO (21:18)
[2019-09-05] MEDS: Levothyroxine 25 MCG TAB 12.5 MCG PO (21:19)
[2019-09-05] MEDS: Insulin Glargine 300 UNITS/3 ML PEN 50 UNITS SC (21:21)
[2019-09-05 21:37] VITALS: BP 149/73; PULSE 78; RESP 24; TEMP 37.4; O2SAT 96
[2019-09-06] MEDS: Calcium 600mg/Vit D 200U TAB 1 TAB PO (06:22)
[2019-09-06 08:27] VITALS: BP 149/75; PULSE 78; RESP 16; TEMP 36.5
[2019-09-06] MEDS: Terazosin 2 MG CAP 4 MG PO (08:59)
[2019-09-06] MEDS: predniSONE 10 MG TAB 30 MG PO (08:59)
[2019-09-06] MEDS: Ferrous Sulfate 325 MG TAB PO (08:59)
[2019-09-06] MEDS: Apixaban 2.5 MG TAB PO (08:59)
[2019-09-06] MEDS: Pantoprazole 40 MG TABCR PO (09:00)
[2019-09-06] MEDS: amLODIPine 5 MG TAB 10 MG PO (09:00)
[2019-09-06] MEDS: Ascorbic Acid 500 MG TAB 250 MG PO (09:00)
[2019-09-06] MEDS: Venlafaxine 37.5 MG CAPCR 112.5 MG PO (09:00)
[2019-09-06] MEDS: Gabapentin 300 MG CAP PO (09:00)
[2019-09-06] MEDS: Normal Saline Flush 10 ML SYR 20 ML IVP (09:01)
[2019-09-06] MEDS: Lactobacillus Acidophilus CAP 1 CAP PO (09:01)
[2019-09-06] MEDS: hydrALAZINE 25 MG TAB 50 MG PO ×2 (09:01→12:15)
[2019-09-06] MEDS: Insulin Aspart 300 UNITS/3 ML PEN 18 UNITS SC ×2 (09:03→12:02)
[2019-09-06] MEDS: Insulin Aspart 300 UNITS/3 ML PEN SC ×2 (09:03→12:02)
[2019-09-06] MEDS: Insulin Glargine 300 UNITS/3 ML PEN 15 UNITS SC (09:04)
[2019-09-06] MEDS: Protein Nutritional Supplement 16 GM 1 OUNCE PACKET PO (09:05)
--- NOTE | 2019-09-06 09:56 | W.PM.DS.N ---
Date of service: 09/06/19 Time of Service: 09:56 DS: Diagnosis Discharge Diagnosis (1) Sacral wound: Start date: 09/06/19 Start time: 10:01 Status: Acute Asessment and Plan: Second Debridement of wound on 08/25/2019, no pain, he then had a sharp debridement on 09/02. He will continue wound vac for 2 more weeks per surgery. On Doxy daily which will remain for prophylactic treatment. Poorly controlled diabetic that does not move, is capable of moving but requires nursing to move him in bed. Two assist when OOB. He will have a long healing process. He will need follow up with Surgery (2) Diabetic gastroparesis: Start date: 09/06/19 Start time: 10:41 Status: Acute Asessment and Plan: Found to have on this admission he did have an ileus during admission, which has resolved. He was on erythromycin. (3) Hep C w/o coma, chronic: Start date: 09/06/19 Start time: 11:21 Status: Chronic (4) Protein-calorie malnutrition, mild: Start date: 09/06/19 Start time: 11:21 Status: Acute Asessment and Plan: He should have an ensure with every meal to ensure proper healing. Control diabetes and maintain heart healthy, carb counting diet. Poor nutrition (5) Poorly controlled type 2 diabetes mellitus with circulatory disorder: Start date: 09/06/19 Start time: 11:23 Status: Chronic Asessment and Plan: He did have quite a few bgl in 300's he also takes prednisone daily, poorly controlled, compliant diabetic (6) Diabetic ulcer of left foot associated with diabetes mellitus due to underlying condition: Start date: 09/06/19 Start time: 11:24 Status: Acute Asessment and Plan: Continue drsg and wound care as recommended by Dr. Ashford, follow up with him as recommended. Above case discussed with Dr. Fisher who is in agreement. Discharge Plan Disposition Patient Disposition: SNF (LEVEL 1) [facility] Condition: Stable Discharge Details Reason For Visit: MRSA BACTEREMIA, SACRAL DECUBITUS ULCER STG 4, GAS Admit Date/Time: 08/11/19 13:46 Admit Provider: Manuel Fisher Attending Provider: Manuel Fisher Primary Care Provider: Lou Maldonado Hospital Course Hospital Course: In summary this 59-year-old poorly controlled type II diabetic requiring insulin and a history of chronic kidney disease coronary artery disease paroxysmal atrial fibrillation JESSICA, rheumatoid arthritis, Crohn's disease status post proctocolectomy with ileostomy presented emergency department on July 24, 2019 with generalized malaise fatigue worsening glycemic control and labs consistent with sepsis with severe leukocytosis with a white count in the 20,000's along with worsening renal failure but surprising no fevers. In summary he was found to have MRSA bacteremia. 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 He also had a UTI with an ESBL E. coli which was successfully treated with meropenem for 7 days. At this time he was admitted to status During his work-up an echocardiogram was performed and showed no vegetations. This was a transthoracic echocardiogram. He has known heart failure with preserved ejection fraction but no valvular vegetations were seen. He is not a surgical candidate because of his multiple comorbidities and morbid obesity and high risk for respiratory failure with any kind of sedation for surgical procedure. It is felt that his sacral wound is unlikely to completely heal the goal is to try to treat his MRSA bacteremia and treat the wound infection as best as we can with a wound vacuum and periodic debridements as needed. Patient is noncompliant with pressure relieving measures to allow the sacral decubitus to heal. He has been compliant with wearing his trilogy mask for his JESSICA. His first negative blood culture was on July 27, 2019 and therefore 4 weeks of therapy was completed on August 24, 2019. He will be on doxycycline for preventative life long. He received multiple debridements of his wound while present with the last one being on 09/02, per surgery he will need another 2 weeks of the wound vac to complete treatment. During admission his colostomy was putting undigested food, he was made npo and studies were done revealing gastropareisis, he did have an ileus. He was placed on erythromycin which he finished. He was also positive with an E.coli uti and given a dose of fosfomycin with negative repeat urine cultures. We will continue the catheter at this time to add in wound healing. He did have worsening creatinines when requiring lasix doses therefore he will be on q 72 hour 40 mg lasix dosing. He denies CP, SOB, N/V/D. He does well on trilogy and should be wearing it at all times when resting or feeling volume overloaded. Home Meds and New Rx's Prescriptions: New prednisone 10 mg Tablet 30 mg PO DAILY Qty: 60 RF: 0 doxycycline hyclate 100 mg Capsule 100 mg PO DAILY@1000 Qty: 30 RF: 0 erythromycin ethylsuccinate 200 mg/5 mL Suspension For Reconstitution 100 mg PO AC Qty: 27 RF: 0 Phlexy-Vits Packet 1 oz PO TID Qty: 15 RF: 0 oxycodone 5 mg Tablet 5 mg PO Q4H PRN PRNQty: 20 RF: 0 furosemide [Lasix] 40 mg tablet 40 mg PO .Q 72 H Qty: 20 RF: 0 Continued cyanocobalamin (vitamin B-12) 1,000 mcg Tablet 1,000 mcg PO DAILY RF: 0 ferrous sulfate 325 mg (65 mg iron) Tablet 325 mg PO BID Qty: 0 RF: 0 ascorbic acid (vitamin C) [Vitamin C] 250 mg Tablet 1 tab PO BID RF: 0 Centrum Complete 18-400 mg-mcg Tablet 1 tab PO DAILY RF: 0 pantoprazole 40 mg Tablet,Delayed Release (Dr/Ec) 40 mg PO DAILY Qty: 60 RF: 0 melatonin 3 mg Tablet Extended Release 6 mg PO HS Qty: 30 RF: 0 calcium carbonate-vitamin D3 [Calcium 500 + D] 500 mg(1,250mg) -400 unit Tablet 1 tab PO BID RF: 0 acetaminophen [Tylenol] 325 mg tablet See Rx Instructions .ROUTE .COMPLEX RF: 0 gabapentin 100 mg capsule 300 mg PO TID RF: 0 risperidone [Risperdal] 2 mg tablet 1.5 mg PO HS RF: 0 vitamin B complex 100 2-herbs 100 mg Tablet 1 tab PO DAILY RF: 0 Enrique 7-7-1.5 gram Powder In Packet 1 packet PO BID RF: 0 Combivent Respimat 20-100 mcg/actuation Mist 1 puff INHALATION Q6H PRNRF: 0 acidophilus-pectin, citrus 25 million cell -100 mg tablet 1 cap PO DAILY RF: 0 insulin lispro [Humalog KwikPen Insulin] 100 unit/mL Insulin Pen 0 unit SUBCUT AC RF: 0 nystatin 100,000 unit/gram Powder 0 g topical BID Qty: 0 RF: 0 sodium bicarbonate 650 mg Tablet 650 mg PO BID Qty: 90 RF: 0 potassium bicarb-citric acid 20 mEq tablet, effervescent 20 meq PO DAILY Qty: 30 RF: 0 terazosin 2 mg Capsule 4 mg PO BID Qty: 0 RF: 0 magnesium chloride [Mag 64] 64 mg Tablet,Delayed Release (Dr/Ec) 64 mg PO BID Qty: 0 RF: 0 venlafaxine [Effexor XR] 37.5 mg Capsule,Extended Release 24hr 112.5 mg PO DAILY RF: 0 Zyrtec 10 mg Capsule 10 mg PO DAILY RF: 0 amlodipine 5 mg tablet 10 mg PO DAILY RF: 0 levothyroxine 25 mcg tablet 12.5 mcg PO HS RF: 0 Lantus Solostar U-100 Insulin 100 unit/mL (3 mL) insulin pen 50 unit subcut DIRECTED RF: 0 insulin aspart U-100 100 unit/mL (3 mL) insulin pen 10 unit SC AC Qty: 15 RF: 0 metoprolol tartrate 25 mg Tablet 25 mg PO BID RF: 0 clonidine HCl [Catapres] 0.1 mg tablet 0.1 mg PO TID Qty: 0 RF: 0 Eliquis 5 mg Tablet 2.5 mg PO BID Qty: 60 RF: 0 lorazepam [Ativan] 1 mg Tablet 1 mg PO Q8H PRNRF: 0 CertaVite Senior-Antioxidant 0.4-300-250 mg-mcg-mcg Tablet 1 tab PO QAM RF: 0 Duoneb 3 ml inhalation PRN PRNRF: 0 Discontinued furosemide [Lasix] 40 mg tablet 80 - 100 mg PO BID RF: 0 cephalexin 500 mg tablet 500 mg PO BID 7 Days Qty: 14 RF: 0 prednisone 1 mg tablet See Rx Instructions .ROUTE .COMPLEX RF: 0 Discharge Instructions Instructions: Ileus (DC), Gastroparesis (ED) Additional Instructions: Take lasix q 72 hour Follow wound recommendations per Dr. Ashford and surgery Ensure with every meal. Try to get OOB USE TRILOGY AT ALL TIMES WHEN RESTING OR FEELING VOLUME OVERLOADED Activity:: Activity as Tolerated Equipment/Supplies:: No Equipment Needed Diet:: Carb Counting Discharge Orders Discharge Orders: Discharge Order (Routine); Ordered 09/06/19 Ordered By: Lashon Still DS: Summary Status at Discharge Functional status at discharge: bed bound Overall status at discharge: patient is not back to baseline Mental Status: mental status grossly normal Speech and Movement: speech and movement normal Mood: congruent mood Affect: normal affect Exam Narrative Exam Narrative: He continues to be compliant with his Trilogy. Const General: cooperative Nutritional Appearance: obese Orientation: alert and oriented x3 Resp Effort & Inspection: normal respiratory effort Auscultation: clear to auscultation bilaterally and diminished lung sounds GI Inspection: obesity Palpation: soft and nontender Auscultation: normal bowel sounds Extrem General: normal to inspection, no calf tenderness bilaterally and edema (+1 chronic edema) Laterality: bilateral Psych Mental Status: mental status grossly normal Speech and Movement: speech and movement normal Mood: congruent mood Affect: normal affect DS: Data Vitals/I&O Vitals and I&O: Vital Signs Temperature 36.5 C 09/06/19 08:27 Temperature Source Tympanic 09/06/19 08:27 Pulse 78 09/06/19 08:27 Pulse Rhythm Regular 09/05/19 21:42 Respiratory Rate 16 09/06/19 08:27 Respiratory Effort Accessory Muscle Use 09/05/19 21:42 Respiratory Depth Shallow 09/05/19 21:42 Respiratory Pattern Normal 09/05/19 21:42 Blood Pressure 149/75 H 09/06/19 08:27 Pulse Oximetry 96 09/05/19 21:37 Oxygen Delivery Method Room Air 09/06/19 08:27 Oxygen Flow Rate 1 09/06/19 08:42 Pain Level 3 09/06/19 08:27 Comment 09/04/19 15:31 Intake & Output 09/05/19 09/05/19 09/06/19 11:59 23:59 11:59 Intake Total 720 / 1220 500 / 1220 Output Total 2100 / 3800 1700 / 3800 1400 / 1400 Balance -1380 / -2580 -1200 / -2580 -1400 / -1400 Weight 106.4 kg 106.9 kg Intake: IV 200 / 700 500 / 700 Oral 520 / 520 Output: Urine 1600 / 3000 1400 / 3000 1400 / 1400 Stool 500 / 800 300 / 800 Other: Urine Color Yellow Yellow Pale Yellow Urine Appearance Sediment Clear Clear Comment patient denies any pain or discomfort with insertion site, urine has slight odor Stool Characteristics Soft Liquid Brown [facility] Medical History (Updated 09/06/19 @ 11:23 by Lashon Still NP) Acromegaly (Chronic) Acute on chronic kidney failure (Resolved) Adrenal insufficiency (Chronic) Ambulatory dysfunction (Chronic) Anemia (Chronic Unknown) Atrial flutter, paroxysmal (Chronic) Back pain (Chronic 06/21/13) CAD (coronary artery disease) (Chronic) Cardiopulmonary arrest with successful resuscitation (Resolved) Chronic anxiety (Chronic) Chronic bipolar disorder (Chronic) a. With history of psychosis. Chronic cholecystitis (Chronic) Chronic insomnia (Chronic) Chronic iron deficiency anemia (Acute) Chronic pain (Chronic) On both Methadone and Fentanyl as well as Ultram and Naproxen. CKD (chronic kidney disease) (Chronic) Decubitus ulcer of sacral region, stage 4 (Acute) Decubitus ulcer, stage 4 with infection (Resolved) Diabetes mellitus (Chronic) Diabetic gastroparesis (Acute) Diabetic ulcer of left foot associated with diabetes mellitus due to underlying condition (Acute) Diabetic ulcer of toe associated with diabetes mellitus due to underlying condition, with bone involvement without evidence of necrosis (Inactive) 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 (Resolved) DVT (deep venous thrombosis) (Chronic) Dg April 2019. Has IVC filter placed 04/2019 Dyslipidemia (Chronic) Endocarditis due to Staphylococcus (Resolved) Heart failure with preserved ejection fraction (Acute) Hemorrhagic cystitis (Chronic) Hep C w/o coma, chronic (Chronic) History of DVT (deep vein thrombosis) (Chronic) Hyperkalemia (Resolved) Hypomagnesemia (Resolved) Hypothyroidism (Chronic) Hypoventilation associated with obesity syndrome (Chronic) Ileostomy in place (Acute) Impaired mobility and ADLs (Chronic) Inability to get out of bed (Chronic 06/21/13) Lactic acidosis (Resolved) MRSA bacteremia (Acute) Obesity (Chronic) a. Obesity though he has had significant weight loss since last seen. Obstructive sleep apnea (Chronic) Old non-ST elevation myocardial infarction (NSTEMI) (Acute) March 2019 Open wound of left lower extremity without complication (Acute) secondary to trauma and from anticoagulation 04/2019 Osteoarthritis of both knees (Chronic) Severe. a. [id number] bilateral knees. 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 2 diabetes mellitus (Resolved) Palliative care encounter (Chronic) DObbertin PEA (Pulseless electrical activity) (Acute) episode of bradycardic arrest/PEA. thought to be secondary to gram neg sepsis from acute sonny. 03/2019 Pedal edema (Chronic) Persistent vomiting in adult patient (Acute) Poor self care (Chronic 06/21/13) Poorly controlled type 2 diabetes mellitus with circulatory disorder (Chronic) Presence of IVC filter (Acute) Protein-calorie malnutrition, mild (Acute) Pulmonary hypertension (Chronic) Rheumatoid arthritis (Chronic) Sepsis (Resolved) Septic arthritis of elbow, right (Inactive) Toxic metabolic encephalopathy (Resolved) Ulcer of left lower leg (Chronic) this is healed and resolved. no longer requires dressing Ulcerative colitis (Chronic) UTI (urinary tract infection) (Resolved) UTI (urinary tract infection) due to Enterococcus (Resolved) Surgical History Arthroplasty of knee (Resolved 03/18/12) irrigation and lavage right Fracture, Open Treatment (Resolved) 06/06/17-[facility] [place] S/P ORIF RIGHT DISTAL HUMERUS FRACTURE History of insertion of T-tube into biliary tract (Chronic) S/P colectomy (Chronic) S/P proctocolectomy (Acute) Social History Smoking/Tobacco Use Status: Former Tobacco Use Alcohol Intake: former Drug use: Rarely Substance use type: marijuana Housing: snf Do you feel safe at home: Yes Do you feel safe in your relationship?: Yes Additional [place] [facility] [place]
[2019-09-06] MEDS: Doxycycline Hyclate 100 MG CAP PO (10:30)
[2019-09-06] MEDS: oxyCODONE 5 MG TAB PO (12:03)
--- NOTE | 2019-09-06 12:14 | ROE_ITS ---
Date of service: 09/06/19 Time of Service: 12:15 Operative Note Operative Note DATE OF PROCEDURE: 09/06/19 PRE-OP DIAGNOSIS: diabetic ulcer left foot POST-OP DIAGNOSIS: same PROCEDURE: Wound debridement wound bed preparation/ left foot with application of epi-fix 18 mm graft. ANESTHESIA: none ESTIMATED BLOOD LOSS: 1 PATHOLOGY: none sent COMPLICATIONS: None Patient was transported to: no change Patient's condition: stable Indications: 59-year-old male with multiple comorbidities with a non-healing neuropathic diabetic wound under the left forefoot. Procedure Description: Own is seen at bedside. Left foot, is warm to the touch, pulses are palpable at the ankle graded minus 2 out of 4 for the DP, plus 1 out of 4 for the posterior tibial artery. Capillary return is under 3 seconds to all toes. A full-thickness wound is appreciated under the left third metatarsal head measuring 1 cm x 1.5 cm and is approximately 3 to 4 mm deep. No purulence is identified. Debris is appreciated around the margins of the wound with slime formation noted at the base of the wound. No significant granulation tissue was identified. With a dermal curette, 5 mm, the slime layer and devitalized tissue around the periphery of the wound was removed with bleeding identified and controlled with pressure. At conclusion of the debridement the wound appeared clean and relatively healthy. The depth of the wound appears to be down to joint capsule level but no tendon was seen within the wound base. A 18 mm epi-fix graft was then applied onto the wound and held in place allowing the patient's own blood to hydrate the graft. Adaptic, 4 x 4's, Kerlix roll and Steven wrap was applied. Tape was applied with markings not to remove the dressing or manipulated in any capacity. Brendan tolerated the procedure well and had no complaints or concerns or additional questions. I anticipate seeing Brendan in the office next week as he is preparing to return to the [facility] later today.
--- NOTE | 2019-09-06 12:31 | PDOC.CMDIS ---
- If Service Date Differs Date of service: 09/06/19 Time of Service: 12:31 LACE Index Scoring Tool - Questions: Length of Stay (in days): 14 or more Acuity (Admit via E.D.?): Yes Comorbidities: Previous M.I., Diabetes w/o Complication, Liver or Renal Disease E.D. Visits: 15 - Answers: Total Score: 19 Risk of Readmission: High Risk Care Management Discharge Reason for Hospitalization: Pressure Ulcer sacrum Discharge Plan: Brendan will be discharged back to [facility], where he resides. He will continue with wound care using a wound vac and will follow up with the care team at the [facility].Brendan will trasnsport via ambulance with [facility], coordinated by CM. Patient/Family Education Needs: Discharge plan, limitations, dietary restrictions, Ask Me Three Services Needed at Discharge: Intermediate Facility
--- NOTE | 2019-09-06 13:09 | CHAPLAIN ---
Brendan expects to be discharged back to the [facility] today. He said he's had an good stay here, for six and a half weeks. He knows staff well and has been comfortable being here.
[2019-09-06] MEDS: Bacitracin 1 PACKET TP (13:15)
== END 2019-09-06 13:35 | disposition skilled nursing facility (03) | DRG 853 ==
PROVIDERS: Family Medicine; Internal Medicine; Nurse Practitioner Family; Surgery; Admitting Provider Internal Medicine; PCP Family Medicine; Visit Provider Internal Medicine
DX: R78.81 Bacteremia (principal); L89.154 Pressure ulcer of sacral region, stage 4; E44.1 Mild protein-calorie malnutrition; E27.40 Unspecified adrenocortical insufficiency; I50.32 Chronic diastolic (congestive) heart failure; I48.92 Unspecified atrial flutter; L08.1 Erythrasma; K56.7 Ileus, unspecified; N39.0 Urinary tract infection, site not specified; E66.2 Morbid (severe) obesity with alveolar hypoventilation; L97.821 Non-pressure chronic ulcer of other part of left lower leg limited to breakdown of skin; I13.0 Hypertensive heart and chronic kidney disease with heart failure and stage 1 through stage 4 chronic kidney disease, or unspecified chronic kidney disease; N18.4 Chronic kidney disease, stage 4 (severe); Z16.12 Extended spectrum beta lactamase (ESBL) resistance; Z79.2 Long term (current) use of antibiotics; B95.62 Methicillin resistant Staphylococcus aureus infection as the cause of diseases classified elsewhere; Z51.5 Encounter for palliative care; Z68.31 Body mass index [BMI] 31.0-31.9, adult; E11.43 Type 2 diabetes mellitus with diabetic autonomic (poly)neuropathy; K31.84 Gastroparesis; Z79.4 Long term (current) use of insulin; Z79.52 Long term (current) use of systemic steroids; Z79.01 Long term (current) use of anticoagulants; I25.10 Atherosclerotic heart disease of native coronary artery without angina pectoris; B37.2 Candidiasis of skin and nail; R00.1 Bradycardia, unspecified; E11.22 Type 2 diabetes mellitus with diabetic chronic kidney disease; E11.621 Type 2 diabetes mellitus with foot ulcer; L97.521 Non-pressure chronic ulcer of other part of left foot limited to breakdown of skin; D63.1 Anemia in chronic kidney disease; D50.9 Iron deficiency anemia, unspecified; B18.2 Chronic viral hepatitis C; M06.9 Rheumatoid arthritis, unspecified; E11.65 Type 2 diabetes mellitus with hyperglycemia; E11.59 Type 2 diabetes mellitus with other circulatory complications; B35.1 Tinea unguium; I48.0 Paroxysmal atrial fibrillation; Z90.49 Acquired absence of other specified parts of digestive tract; Z93.2 Ileostomy status; E03.9 Hypothyroidism, unspecified; B96.20 Unspecified Escherichia coli [E. coli] as the cause of diseases classified elsewhere; Z71.3 Dietary counseling and surveillance; Z86.718 Personal history of other venous thrombosis and embolism; Z95.828 Presence of other vascular implants and grafts; Z74.01 Bed confinement status; F31.9 Bipolar disorder, unspecified; R26.2 Difficulty in walking, not elsewhere classified; Z22.322 Carrier or suspected carrier of Methicillin resistant Staphylococcus aureus; Z03.818 Encounter for observation for suspected exposure to other biological agents ruled out
CPT/HCPCS: 11042; 11045; 80048; 80053; 82947; 87077; 97110; 97166; 97530; 97535; 99231; 99232; 99233; 99239; 99255; 99306; 99308; 99309; 99310; 99316; E0191; NC; U0003; 71045; 73630; 80202; 81003; 81015; 82040; 82565; 83540; 83550; 83735; 83880; 84484; 85025; 87070; 87086; 87186; J0131; J1756; J1940; J1941; J3475; J3490; J7512; J7620

== ENCOUNTER 2019-09-10 21:29 | Outpatient (REF) | payer MEDICARE, MEDICAID, SELFPAY ==
[2019-09-10 22:13] LABS: Anion Gap 9.8 mmol/L (3-11); BUN 69 mg/dL (7-18); CO2 21.2 mmol/L (21.0-32.0); CREATININE 2.03 mg/dL (0.70-1.30); Calcium 8.1 mg/dL (8.5-10.1); Chloride 108 mmol/L (98-107); Estimated GFR 33.67 (mL/min/1.73m2); Glucose 418 mg/dL (74-106); Potassium 5.2 mmol/L (3.5-5.1); Sodium 139 mmol/L (136-145)
[2019-09-13 15:50] LABS: COVID-19 RT-PCR Result Not Detected ((See Note))
== END 2019-09-10 21:49 ==
LOC: NCHCN 21:29
PROVIDERS: PCP Family Medicine; Visit Provider Family Medicine
DX: E11.9 Type 2 diabetes mellitus without complications (principal); N18.9 Chronic kidney disease, unspecified; S81.809A Unspecified open wound, unspecified lower leg, initial encounter; X58.XXXA Exposure to other specified factors, initial encounter; Z11.59 Encounter for screening for other viral diseases; M46.28 Osteomyelitis of vertebra, sacral and sacrococcygeal region; K31.84 Gastroparesis
CPT/HCPCS: 80048; U0003

== ENCOUNTER 2019-09-11 19:32 | Emergency (ER) | payer MEDICARE, MEDICAID, SELFPAY ==
[2019-09-11] VITALS (18 sets, daily range): BP systolic 150–164; BP diastolic 66–77; PULSE 52–61; RESP 14–28; TEMP 37.1–38.4; O2SAT 99–100
--- NOTE | 2019-09-11 19:30 | RT.EKG_ITS ---
APPROVED REPORT Exam: Resting ECG Patient Location: E HR:60 bpm ECG Measurements Heart Rate 60 AXIS CO 184 P 31 QRSd 104 QRS 39 QT 411 T 61 QTc 413 <Conclusion> Sinus rhythm...normal P axis, V-rate 60- 99
--- NOTE | 2019-09-11 19:31 | ED.GENADUL_ITS ---
Discharge Plan Disposition Patient Disposition: [facility] (LEVEL 2) [facility] Condition: Fair Discharge Details Chief Complaint: Fever Clinical Impression: Acute UTI Primary Care Provider: Lou Maldonado ED Provider: Karen Wood [place] Meds and New Rx's Prescriptions: New ertapenem 1 gram recon soln 1 gm IM Q24H Qty: 5 RF: 0 Continued cyanocobalamin (vitamin B-12) 1,000 mcg Tablet 1,000 mcg PO DAILY RF: 0 ferrous sulfate 325 mg (65 mg iron) Tablet 325 mg PO BID Qty: 0 RF: 0 ascorbic acid (vitamin C) [Vitamin C] 250 mg Tablet 1 tab PO BID RF: 0 Centrum Complete 18-400 mg-mcg Tablet 1 tab PO DAILY RF: 0 pantoprazole 40 mg Tablet,Delayed Release (Dr/Ec) 40 mg PO DAILY Qty: 60 RF: 0 melatonin 3 mg Tablet Extended Release 6 mg PO HS Qty: 30 RF: 0 calcium carbonate-vitamin D3 [Calcium 500 + D] 500 mg(1,250mg) -400 unit Tablet 1 tab PO BID RF: 0 acetaminophen [Tylenol] 325 mg tablet See Rx Instructions .ROUTE .COMPLEX RF: 0 gabapentin 100 mg capsule 300 mg PO TID RF: 0 risperidone [Risperdal] 2 mg tablet 1.5 mg PO HS RF: 0 vitamin B complex 100 2-herbs 100 mg Tablet 1 tab PO DAILY RF: 0 Enrique 7-7-1.5 gram Powder In Packet 1 packet PO BID RF: 0 Combivent Respimat 20-100 mcg/actuation Mist 1 puff INHALATION Q6H PRNRF: 0 acidophilus-pectin, citrus 25 million cell -100 mg tablet 1 cap PO DAILY RF: 0 insulin lispro [Humalog KwikPen Insulin] 100 unit/mL Insulin Pen 0 unit SUBCUT AC RF: 0 nystatin 100,000 unit/gram Powder 0 g topical BID Qty: 0 RF: 0 sodium bicarbonate 650 mg Tablet 650 mg PO BID Qty: 90 RF: 0 potassium bicarb-citric acid 20 mEq tablet, effervescent 20 meq PO DAILY Qty: 30 RF: 0 prednisone 10 mg Tablet 30 mg PO DAILY Qty: 60 RF: 0 doxycycline hyclate 100 mg Capsule 100 mg PO DAILY@1000 Qty: 30 RF: 0 erythromycin ethylsuccinate 200 mg/5 mL Suspension For Reconstitution 100 mg PO AC Qty: 27 RF: 0 Phlexy-Vits Packet 1 oz PO TID Qty: 15 RF: 0 oxycodone 5 mg Tablet 5 mg PO Q4H PRN PRNQty: 20 RF: 0 furosemide [Lasix] 40 mg tablet 40 mg PO .Q 72 H Qty: 20 RF: 0 terazosin 2 mg Capsule 4 mg PO BID Qty: 0 RF: 0 magnesium chloride [Mag 64] 64 mg Tablet,Delayed Release (Dr/Ec) 64 mg PO BID Qty: 0 RF: 0 venlafaxine [Effexor XR] 37.5 mg Capsule,Extended Release 24hr 112.5 mg PO DAILY RF: 0 Zyrtec 10 mg Capsule 10 mg PO DAILY RF: 0 amlodipine 5 mg tablet 10 mg PO DAILY RF: 0 levothyroxine 25 mcg tablet 12.5 mcg PO HS RF: 0 Lantus Solostar U-100 Insulin 100 unit/mL (3 mL) insulin pen 50 unit subcut DIRECTED RF: 0 insulin aspart U-100 100 unit/mL (3 mL) insulin pen 10 unit SC AC Qty: 15 RF: 0 metoprolol tartrate 25 mg Tablet 25 mg PO BID RF: 0 clonidine HCl [Catapres] 0.1 mg tablet 0.1 mg PO TID Qty: 0 RF: 0 Eliquis 5 mg Tablet 2.5 mg PO BID Qty: 60 RF: 0 lorazepam [Ativan] 1 mg Tablet 1 mg PO Q8H PRNRF: 0 CertaVite Senior-Antioxidant 0.4-300-250 mg-mcg-mcg Tablet 1 tab PO QAM RF: 0 Duoneb 3 ml inhalation PRN PRNRF: 0 Discharge Instructions Instructions: Urinary Tract Infection in Men (ED) Additional Instructions: Brendan has a urinary tract infection which is likely causing his fevers. We did give him Tylenol and his temperature came down from 38.4-37.1. His labs showed stable kidney functions with a potassium of 5.6 so he was sent home with a package of [place] which needs to be reconstituted with 1/3 cup of water which he is supposed to take 3 hours after medications or 3 hours prior to. Please see package instructions for administration instructions. He should have his basic metabolic panel drawn in 2 days to recheck his potassium level He will also be given ertapenem 1 g IM every 24 hours while his urine cultures are pending. This can be reconstituted with 3.2 mL lidocaine 1% for administration antibiotics can be narrowed according to culture reports if appropriate. Otherwise he should complete a 7-day course. Continue left lower extremity wound management per podiatry. He should continue his usual medications as previously directed. Continue acetaminophen and routine fever management Referrals: Lou Maldonado [Primary Care Provider] - (2 days) Discharge Orders Other Ambulatory Orders: Basic Metabolic Panel (Routine) Location: None Selected Ordered By: Karen Wood Discharge Data Discharge Date/Time-TO BE ENTERED AT DEPARTURE: 09/11/19 22:25 Medical Decision Making <Karen Wood NP - Last Filed: 09/11/19 22:57> This is a 59-year-old gentleman with a significant past medical history who presents to the emergency department tonight with fever. Fever work-up included a lactic acid which was normal procalcitonin which was normal chest x-ray which shows no acute findings he is oxygenating in the high 90s on 2 L nasal cannula. His kidney functions are at baseline he does have a wound to his left lower extremity that is followed by podiatry. There is no drainage on the dressing and there is no redness proximally so wound was not examined. His urine does show urinary tract infection. His last UTI was E. coli was sensitive to ceftriaxone so we did give him 1 g of IV ceftriaxone but noted that it was ESBL so will give ertapenem 1 g here in the emergency department and will give 1 g to be administered IM in 24 hours while awaiting culture report. He is hemodynamically stable. He did receive Tylenol for his fever of 38.4 with improvement in temperature to 37.1. He is tolerating p.o. well. Medical Records Medical records reviewed: Yes I reviewed the patient's medical records. Lab Data Lab results reviewed: Yes I reviewed the patient's lab results. Labs: Laboratory Results - last 24 hr 09/11/19 09/11/19 09/11/19 19:40 20:00 20:00 WBC RBC Hgb Hct MCV MCH MCHC RDW Plt Count MPV Immature Gran % Neutrophils % Lymphocytes % Monocytes % Eosinophils % Basophils % Absolute Neutrophils Absolute Lymphocytes Absolute Monocytes Absolute Eosinophils Absolute Basophils Differential Comment RBC Morphology Poikilocytosis Anisocytosis PT INR Sodium 144 Potassium 5.6 H Chloride 113 H Carbon Dioxide 24.0 Anion Gap 7.0 BUN 61 H Creatinine 1.99 H Estimated GFR/1.73 m2 34.45 Glucose 281 H D Lactate 1.0 Calcium 8.4 L Total Bilirubin 0.4 AST 14 L ALT 24 Alkaline Phosphatase 76 Total Protein 5.8 L Albumin 2.9 L Procalcitonin Urine Color Yellow Urine Clarity Clear Urine pH 6.0 Ur Specific Ruby 1.015 Urine Protein 100 H Urine Ketones Negative Urine Blood Trace-intact H Urine Nitrite Positive H Urine Bilirubin Negative Urine Urobilinogen 0.2 Ur Leukocyte Esterase Small H Urine RBC Negative Urine WBC >50 H Ur Epithelial Cells Negative Urine Crystals Negative Urine Bacteria Many Urine Casts Negative Urine Mucus Negative Ur Culture Indicated? Yes Urine Glucose Negative 09/11/19 09/11/19 09/11/19 20:00 20:00 20:00 WBC 15.13 H RBC 4.23 L Hgb 10.6 L Hct 34.6 L MCV 81.8 MCH 25.1 L MCHC 30.6 L RDW 21.1 H Plt Count 166 MPV 9.3 Immature Gran % 1.4 Neutrophils % 92.2 Lymphocytes % 3.7 Monocytes % 2.4 Eosinophils % 0.2 Basophils % 0.1 Absolute Neutrophils 13.95 H Absolute Lymphocytes 0.56 L Absolute Monocytes 0.36 Absolute Eosinophils 0.03 Absolute Basophils 0.02 Differential Comment Rbc morph reviewed RBC Morphology See below Poikilocytosis 2+ Anisocytosis 3+ PT 10.4 INR 1.0 Sodium Potassium Chloride Carbon Dioxide Anion Gap BUN Creatinine Estimated GFR/1.73 m2 Glucose Lactate Calcium Total Bilirubin AST ALT Alkaline Phosphatase Total Protein Albumin Procalcitonin 0.6 Urine Color Urine Clarity Urine pH Ur Specific Ruby Urine Protein Urine Ketones Urine Blood Urine Nitrite Urine Bilirubin Urine Urobilinogen Ur Leukocyte Esterase Urine RBC Urine WBC Ur Epithelial Cells Urine Crystals Urine Bacteria Urine Casts Urine Mucus Ur Culture Indicated? Urine Glucose <Jorge Hayes MD - Last Filed: 09/20/19 17:08> Patient was evaluated, treated and disposition by TYLER Wood. I was physically present in the emergency department when patient arrived and was available for consultation. I was not consulted on this patient and was not involved in treatment. HPI <Karen Wood NP - Last Filed: 09/11/19 22:57> General Mode of arrival: EMS . Date/Time Provider Initiated Documentation: 09/11/19 19:41 . Information obtained by: patient and EMS . HPI Narrative: This is a 59-year-old male patient with an extensive past medical history recently discharged from here on Friday where he was admitted and treated for ESBL UTI with MRSA bacteremia. He was sent back to the emergency department for evaluation tonight for fever and generalized weakness. He has not had cough he complains of chronic shortness of breath he is oxygenating in the high 90s on 2 L nasal cannula he states he did not use his trilogy last night as they are out of water . He has a dressing on his left lower extremity with a chronic wound that is followed by podiatry dressing was changed on the and there are instructions not to remove the dressing per podiatry he has had no erythema proximally he denies any pain or concerns with his foot. His colostomy has been functioning. He has no abdominal pain Related Data Home Medications Medication Instructions Recorded Confirmed cyanocobalamin (vitamin B-12) 1,000 mcg PO DAILY 12/23/17 09/11/19 ferrous sulfate 325 mg PO BID #0 tab 12/31/17 09/11/19 magnesium chloride [Mag 64] 64 mg PO BID #0 tab 02/10/18 09/11/19 terazosin 4 mg PO BID #0 cap 02/10/18 09/11/19 Centrum Complete 1 tab PO DAILY 03/01/18 09/11/19 ascorbic acid (vitamin C) [Vitamin 1 tab PO BID 03/01/18 09/11/19 C] melatonin 6 mg PO HS #30 tab 06/19/18 09/11/19 pantoprazole 40 mg PO DAILY #60 tab 06/19/18 09/11/19 calcium carbonate-vitamin D3 1 tab PO BID 07/09/18 09/11/19 [Calcium 500 + D] venlafaxine [Effexor XR] 112.5 mg PO DAILY 10/23/18 09/11/19 acetaminophen [Tylenol] See Rx Instructions .ROUTE .COMPLEX 01/08/19 09/11/19 gabapentin 300 mg PO TID 01/08/19 09/11/19 Zyrtec 10 mg PO DAILY 02/23/19 09/11/19 amlodipine 10 mg PO DAILY 02/26/19 09/11/19 levothyroxine 12.5 mcg PO HS 02/26/19 09/11/19 Lantus Solostar U-100 Insulin 50 unit SUBCUT DIRECTED 03/15/19 09/11/19 insulin aspart U-100 10 unit SC AC #15 ml 03/19/19 09/11/19 metoprolol tartrate 25 mg PO BID 05/01/19 09/11/19 Eliquis 2.5 mg PO BID #60 tab 05/20/19 09/11/19 clonidine HCl [Catapres] 0.1 mg PO TID #0 tab 05/20/19 09/11/19 Combivent Respimat 1 puff INHALATION Q6H PRN 06/02/19 09/11/19 Enrique 1 packet PO BID 06/02/19 09/11/19 acidophilus-pectin, citrus 1 cap PO DAILY 06/02/19 09/11/19 insulin lispro [Humalog KwikPen 0 unit SUBCUT AC 06/02/19 09/11/19 Insulin] risperidone [Risperdal] 1.5 mg PO HS 06/02/19 09/11/19 vitamin B complex 100 2-herbs 1 tab PO DAILY 06/02/19 09/11/19 nystatin 0 g TOPICAL BID #0 g 06/04/19 09/11/19 potassium bicarb-citric acid 20 meq PO DAILY #30 tab 06/04/19 09/11/19 sodium bicarbonate 650 mg PO BID #90 tab 06/04/19 09/11/19 CertaVite Senior-Antioxidant 1 tab PO QAM 06/07/19 09/11/19 Duoneb 3 ml INHALATION PRN PRN 06/07/19 09/11/19 lorazepam [Ativan] 1 mg PO Q8H PRN 06/07/19 09/11/19 Phlexy-Vits 1 oz PO TID #15 ea 09/06/19 09/11/19 doxycycline hyclate 100 mg PO DAILY@1000 #30 cap 09/06/19 09/11/19 erythromycin ethylsuccinate 100 mg PO AC #27 ml 09/06/19 09/11/19 furosemide [Lasix] 40 mg PO .Q 72 H #20 tab 09/06/19 09/11/19 oxycodone 5 mg PO Q4H PRN PRN #20 tab 09/06/19 09/11/19 prednisone 30 mg PO DAILY #60 tab 09/06/19 09/11/19 ertapenem 1 gm IM Q24H #5 each 09/11/19 Previous Rx's Medication Instructions Recorded ferrous sulfate 325 mg PO BID #0 tab 12/31/17 magnesium chloride [Mag 64] 64 mg PO BID #0 tab 02/10/18 terazosin 4 mg PO BID #0 cap 02/10/18 melatonin 6 mg PO HS #30 tab 06/19/18 pantoprazole 40 mg PO DAILY #60 tab 06/19/18 insulin aspart U-100 10 unit SC AC #15 ml 03/19/19 Eliquis 2.5 mg PO BID #60 tab 05/20/19 clonidine HCl [Catapres] 0.1 mg PO TID #0 tab 05/20/19 nystatin 0 g TOPICAL BID #0 g 06/04/19 potassium bicarb-citric acid 20 meq PO DAILY #30 tab 06/04/19 sodium bicarbonate 650 mg PO BID #90 tab 06/04/19 Phlexy-Vits 1 oz PO TID #15 ea 09/06/19 doxycycline hyclate 100 mg PO DAILY@1000 #30 cap 09/06/19 erythromycin ethylsuccinate 100 mg PO AC #27 ml 09/06/19 furosemide [Lasix] 40 mg PO .Q 72 H #20 tab 09/06/19 oxycodone 5 mg PO Q4H PRN PRN #20 tab 09/06/19 prednisone 30 mg PO DAILY #60 tab 09/06/19 ertapenem 1 gm IM Q24H #5 each 09/11/19 Allergies Allergy/AdvReac Type Severity Reaction Status Date / Time lisinopril Allergy Unverified 07/24/19 17:47 General Stated Complaint: Fever YVES: 3 Review of Systems <Karen Wood NP - Last Filed: 09/11/19 22:57> All systems reviewed & are unremarkable except as noted in HPI and below PFSH <aKren Wood NP - Last Filed: 09/11/19 22:57> Medical History (Updated 09/11/19 @ 22:01 by Karen Wood NP) Acromegaly (Chronic) Acute on chronic kidney failure (Resolved) Adrenal insufficiency (Chronic) Ambulatory dysfunction (Chronic) Anemia (Chronic Unknown) Atrial flutter, paroxysmal (Chronic) Back pain (Chronic 06/21/13) CAD (coronary artery disease) (Chronic) Cardiopulmonary arrest with successful resuscitation (Resolved) Chronic anxiety (Chronic) Chronic bipolar disorder (Chronic) a. With history of psychosis. Chronic cholecystitis (Chronic) Chronic insomnia (Chronic) Chronic iron deficiency anemia (Acute) Chronic pain (Chronic) On both Methadone and Fentanyl as well as Ultram and Naproxen. CKD (chronic kidney disease) (Chronic) Decubitus ulcer of sacral region, stage 4 (Acute) Decubitus ulcer, stage 4 with infection (Resolved) Diabetes mellitus (Chronic) Diabetic gastroparesis (Acute) Diabetic ulcer of left foot associated with diabetes mellitus due to underlying condition (Acute) Diabetic ulcer of toe associated with diabetes mellitus due to underlying condition, with bone involvement without evidence of necrosis (Inactive) 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 (Resolved) DVT (deep venous thrombosis) (Chronic) Dg April 2019. Has IVC filter placed 04/2019 Dyslipidemia (Chronic) Endocarditis due to Staphylococcus (Resolved) Heart failure with preserved ejection fraction (Acute) Hemorrhagic cystitis (Chronic) Hep C w/o coma, chronic (Chronic) History of DVT (deep vein thrombosis) (Chronic) Hyperkalemia (Resolved) Hypomagnesemia (Resolved) Hypothyroidism (Chronic) Hypoventilation associated with obesity syndrome (Chronic) Ileostomy in place (Acute) Impaired mobility and ADLs (Chronic) Inability to get out of bed (Chronic 06/21/13) Lactic acidosis (Resolved) MRSA bacteremia (Acute) Obesity (Chronic) a. Obesity though he has had significant weight loss since last seen. Obstructive sleep apnea (Chronic) Old non-ST elevation myocardial infarction (NSTEMI) (Acute) March 2019 Open wound of left lower extremity without complication (Acute) secondary to trauma and from anticoagulation 04/2019 Osteoarthritis of both knees (Chronic) Severe. a. [id number] bilateral knees. 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 2 diabetes mellitus (Resolved) Palliative care encounter (Chronic) DObbertin PEA (Pulseless electrical activity) (Acute) episode of bradycardic arrest/PEA. thought to be secondary to gram neg sepsis from acute sonny. 03/2019 Pedal edema (Chronic) Persistent vomiting in adult patient (Acute) Poor self care (Chronic 06/21/13) Poorly controlled type 2 diabetes mellitus with circulatory disorder (Chronic) Presence of IVC filter (Acute) Protein-calorie malnutrition, mild (Acute) Pulmonary hypertension (Chronic) Rheumatoid arthritis (Chronic) Sepsis (Resolved) Septic arthritis of elbow, right (Inactive) Toxic metabolic encephalopathy (Resolved) Ulcer of left lower leg (Chronic) this is healed and resolved. no longer requires dressing Ulcerative colitis (Chronic) UTI (urinary tract infection) (Resolved) UTI (urinary tract infection) due to Enterococcus (Resolved) Surgical History Arthroplasty of knee (Resolved 03/18/12) irrigation and lavage right Fracture, Open [place] (Resolved[place] [place] [facility] [place] DISTAL HUMERUS FRACTURE History of insertion of T-tube into biliary tract (Chronic) S/P colectomy (Chronic) S/P proctocolectomy (Acute) Social History Smoking/Tobacco Use Status: Former Tobacco Use Alcohol Intake: former Drug use: Rarely Substance use type: marijuana Housing: [facility] Do you feel safe at home: Yes Do you feel safe in your relationship?: Yes Additional Social history: Living at [facility] – [place], [place] Exam <Karen Wood NP - Last Filed: 09/11/19 22:57> Const General: cooperative, disheveled, frail appearing and ill appearing chronically Nutritional Appearance: obese Orientation: alert, awake and oriented x3 Resp Effort & Inspection: normal respiratory effort Auscultation: diminished lung sounds, no rhonchi and no wheezes Cardio Rate: regular rate Rhythm: regular rhythm GI Inspection: obesity Palpation: soft Skin Lesions: lesion noted (dressing to left lower extremity clean dry and intact) Rashes: rashes noted (chest) Neuro General: patient alert, patient awake and patient oriented x3
[2019-09-11 19:57] LABS: Bilirubin Negative (Negative); Blood Trace-intact (Negative); Clarity Clear (Clear); Glucose Negative (Negative); Ketones Negative (Negative); Leukocyte Esterase Small (Negative); Nitrite Positive (Negative); Specific Gravity 1.015 (1.005-1.025); Urobilinogen 0.2 EU/dL (Up TO 0.2)
[2019-09-11 20:02] LABS: Bacteria Many HPF (Negative); C & S Indicated? Yes; Casts Negative LPF (Negative); Crystals Negative HPF (Negative); Epithelial Cells Negative HPF (Negative); Mucus Negative (Negative); RBC Negative HPF (0-2); WBC >50 HPF (0-5)
[2019-09-11] MEDS: Normal Saline 1,000 ML 1000 ML IV (20:11)
[2019-09-11 20:32] LABS: ALT 24 U/L (16-63); AST 14 U/L (15-37); Albumin 2.9 g/dL (3.4-5.0); Alkaline Phosphatase 76 U/L (46-116); BUN 61 mg/dL (7-18); Bilirubin, Total 0.4 mg/dL (0.2-1.0); CREATININE 1.99 mg/dL (0.70-1.30); Calcium 8.4 mg/dL (8.5-10.1); Chloride 113 mmol/L (98-107); Estimated GFR 34.45 (mL/min/1.73m2); Glucose 281 mg/dL (74-106); Potassium 5.6 mmol/L (3.5-5.1); Sodium 144 mmol/L (136-145); Total Protein 5.8 g/dL (6.4-8.2)
[2019-09-11] MEDS: cefTRIAXone 1 GM/50 ML BAG IVPB (20:45)
[2019-09-11 20:46] LABS: Abs Immature Grans 0.21 k/cumm (0.0-0.09); Absolute Basophil Count 0.02 k/cumm (0.0-0.2); Absolute Eosinophil Count 0.03 k/cumm (0.0-0.7); Absolute Lymphocyte Count 0.56 k/cumm (1.2-3.4); Absolute Monocyte Count 0.36 k/cumm (0.11-0.7); Absolute Neutrophil Count 13.95 k/cumm (1.2-6.7); Basophils % 0.1; Eosinophils % 0.2; HCT 34.6 % (40.0-50.0); HGB 10.6 g/dL (13.5-17.5); Immature Grans % 1.4 %; Lymphocytes % 3.7; Mean Corp. HGB Concentration 30.6 g/dL (32.0-36.0); Mean Corpuscular Hemoglobin 25.1 pg (27.0-33.0); Mean Corpuscular Volume 81.8 fL (80-95); Mean Platelet Volume 9.3 fL (8.0-11.0); Monocytes % 2.4; Neutrophils % 92.2; Platelet Count 166 x1000/uL (130-400); RBC 4.23 m/cumm (4.50-6.00); RBC Distribution Width 21.1 % (11.8-14.1); White Blood Cell Count 15.13 k/cumm (4.4-10.8)
[2019-09-11] MEDS: Acetaminophen 500 MG TAB 1000 MG PO (20:46)
[2019-09-11 20:48] LABS: Procalcitonin 0.6 ng/mL
[2019-09-11 20:57] LABS: Prothrombin Time 10.4 sec (9.3-11.0)
--- NOTE | 2019-09-11 21:06 | DI.RAD_ITS ---
EXAM: XR PORTABLE CHEST AP CLINICAL HISTORY: fever TECHNIQUE: 2D digital imaging was performed. COMPARISON: CR,XR XR PORTABLE CHEST AP from 09/04/2019 FINDINGS: MEDIASTINUM: Normal. HEART: Stable cardiomegaly. PULMONARY VASCULATURE: Normal. LUNGS: Clear. PLEURAL SPACE: Decreased size of the right pleural effusion. No pneumothorax. BONE:Normal. OTHER FINDINGS:Limited examination due to patient positioning. IMPRESSION: No acute pulmonary findings. DATA REPOSITORY: RADIATION DOSE DELIVERED:
--- NOTE | 2019-09-11 21:16 | DI.VRAD_ITS ---
PROCEDURE INFORMATION: Exam: XR Chest, 1 View Exam date and time: 09/11/2019 9:08 PM Age: 59 years old Clinical indication: Fever TECHNIQUE: Imaging protocol: XR of the chest Views: 1 view. COMPARISON: CR XR PORTABLE CHEST AP 09/04/2019 4:13 PM FINDINGS: Somewhat limited evaluation due to oblique positioning. Lungs: Unremarkable. No consolidation. Pleural space: Decreased size of the suspected right pleural effusion. No pneumothorax. Heart/Mediastinum: Heart appears enlarged similar to previous. Bones/joints: Chronic osseous changes. IMPRESSION: Cardiac enlargement similar to prior without other acute findings. Dictated and Authenticated by: Bong Johnson MD. Ordering:SARAH Jones MD
[2019-09-11 21:28] LABS: Anisocytosis 3+; Diff Comment RBC Morph Reviewed; Poikilocytes 2+
[2019-09-11] MEDS: Lidocaine 1% Multi-Dose 20 ML VIAL IJ (22:04)
[2019-09-12 13:14] LABS: COVID-19 RT-PCR UVMMC Result Negative (Negative)
== END 2019-09-11 22:25 | disposition intermediate care facility (04) ==
PROVIDERS: Emergency Provider Nurse Practitioner Acute Care; PCP Family Medicine
DX: N39.0 Urinary tract infection, site not specified (principal); E87.5 Hyperkalemia; Z11.59 Encounter for screening for other viral diseases; E11.22 Type 2 diabetes mellitus with diabetic chronic kidney disease; Z79.4 Long term (current) use of insulin; N18.9 Chronic kidney disease, unspecified; I12.9 Hypertensive chronic kidney disease with stage 1 through stage 4 chronic kidney disease, or unspecified chronic kidney disease; Z87.440 Personal history of urinary (tract) infections
CPT/HCPCS: 36415; 80053; 84145; 87040; 87077; 93005; 96361; 96365; 96367; 99285; U0003; 71045; 81003; 81015; 83605; 85025; 85610; 87086; 93010; J0696; J1335; J3490

== ENCOUNTER 2019-09-13 18:23 | Outpatient (REF) | payer MEDICARE, MEDICAID, SELFPAY ==
[2019-09-13 18:14] LABS: Abs Immature Grans 0.09 k/cumm (0.0-0.09); Absolute Basophil Count 0.01 k/cumm (0.0-0.2); Absolute Eosinophil Count 0.01 k/cumm (0.0-0.7); Absolute Lymphocyte Count 0.45 k/cumm (1.2-3.4); Absolute Monocyte Count 0.29 k/cumm (0.11-0.7); Absolute Neutrophil Count 8.87 k/cumm (1.2-6.7); Basophils % 0.1; Eosinophils % 0.1; HCT 31.5 % (40.0-50.0); HGB 9.7 g/dL (13.5-17.5); Immature Grans % 0.9 %; Lymphocytes % 4.6; Mean Corp. HGB Concentration 30.8 g/dL (32.0-36.0); Mean Corpuscular Hemoglobin 25.1 pg (27.0-33.0); Mean Corpuscular Volume 81.6 fL (80-95); Mean Platelet Volume 10.7 fL (8.0-11.0); Neutrophils % 91.3; Platelet Count 192 x1000/uL (130-400); RBC 3.86 m/cumm (4.50-6.00); RBC Distribution Width 20.1 % (11.8-14.1); White Blood Cell Count 9.72 k/cumm (4.4-10.8)
[2019-09-13 18:16] LABS: Anion Gap 6.9 mmol/L (3-11); BUN 54 mg/dL (7-18); CO2 24.1 mmol/L (21.0-32.0); CREATININE 2.01 mg/dL (0.70-1.30); Calcium 7.9 mg/dL (8.5-10.1); Chloride 110 mmol/L (98-107); Estimated GFR 34.06 (mL/min/1.73m2); Glucose 388 mg/dL (74-106); Potassium 4.5 mmol/L (3.5-5.1); Sodium 141 mmol/L (136-145)
[2019-09-13 18:35] LABS: Anisocytosis 1+; Basophilic Stippling Present
[2019-09-14 09:59] LABS: Hemoglobin A1C 7.9 % (3.8-5.6)
== END 2019-09-13 18:43 ==
LOC: LBN 18:23
PROVIDERS: PCP Family Medicine; Visit Provider Family Medicine
DX: E11.9 Type 2 diabetes mellitus without complications (principal); N18.9 Chronic kidney disease, unspecified; S81.809A Unspecified open wound, unspecified lower leg, initial encounter
CPT/HCPCS: 80048; 83036; 83735; 85025

== ENCOUNTER 2019-09-22 10:11 | Observation (INO) | payer MEDICARE, MEDICAID, SELFPAY ==
[2019-09-22] VITALS (28 sets, daily range): BP systolic 119–141; BP diastolic 52–70; PULSE 51–70; RESP 12–36; TEMP 37.1–37.4; O2SAT 89–100
--- NOTE | 2019-09-22 10:15 | RT.EKG_ITS ---
APPROVED REPORT Exam: Resting ECG Patient Location: E HR:62 bpm ECG Measurements Heart Rate 62 AXIS AK 169 P 41 QRSd 113 QRS 38 QT 416 T 83 QTc 422 <Conclusion> Sinus rhythm...normal P axis, V-rate 60- 99 Incomplete right bundle branch block...QRSd >112, terminal axis(90,270) EKG shows sinus rhythm at 62, normal axis, incomplete right bundle branch block, nonspecific ST angelo es, no STEMI, nondiagnostic EKG
--- NOTE | 2019-09-22 10:15 | DI.RAD_ITS ---
EXAM: XR PORTABLE CHEST AP CLINICAL HISTORY: SOB TECHNIQUE: 2D digital imaging was performed. COMPARISON: CR,XR XR PORTABLE CHEST AP from 09/11/2019 FINDINGS: Exam is limited by technique and patient body habitus. Leads overlie the chest. The heart is again noted to be grossly enlarged. There is vascular prominence and mildly increased interstitial marking s which could indicate mild CHF. IMPRESSION: Cardiomegaly and question of mild CHF. DATA REPOSITORY: RADIATION DOSE DELIVERED:
--- NOTE | 2019-09-22 10:22 | ED.GENADUL_ITS ---
Discharge Plan Disposition Condition: Good Discharge Details Chief Complaint: RespSymp Admit Date/Time: 09/22/19 12:49 Admit Provider: Manuel Fisher Attending Provider: Manuel Fisher Primary Care Provider: Lou Maldonado ED Provider: Ashanti Hayes Discharge Instructions Activity:: Activity as Tolerated Equipment/Supplies:: No Equipment Needed Diet:: Carb Counting Discharge Orders Discharge Orders: Discharge Order (Routine); Ordered 09/24/19 Ordered By: Manuel Fisher Discharge Data Discharge Date/Time-TO BE ENTERED AT DEPARTURE: 09/22/19 13:42 Medical Decision Making Brendan Corley is a 59 y/o man with multiple medical problems who presented from SNF for fever, resp distress. Upon arrival Pt tahypneic and in mild-mod resp distress with O2 >93 on 1L NC. Pt placed on trilogy with initially no improvement in tachypnea, Pt's sense of SOB. Trilogy found to be in secondary mode, settings adjusted with Pt feeling immediate improvement in symptoms. Tachypnea resolved, RR now 18-20. Good sats. Pt reporting now further SOB but does report that he continues to feel achey and generally unwell. Concern for infectious process given fever this am, multiple possible sources. EKG, screening labs, cxr, continue trilogy and telemetry. Exam/hx not c/w acute aortic process, meningitis. d-dimer elevated, sent prior to improvement in resp status, given no chest pain, no SOB with bipap, full reversal of resp symptoms with bipap, do not suspect PE at this time. Plan for admission for further eval. Holding steroids as no hypotension or AMS at this time, will hold abx for now as no clear infectious process identified. DVT studies requested by hospitalist. Clinical Impression: resp distress, fever Disposition: [facility] inpt Medical Records Medical records reviewed: Yes I reviewed the patient's medical records. Imaging Data Radiologic Study: Attestation: I personally reviewed and interpreted this imaging study as follows: Radiologist's impression: EXAM: XR PORTABLE CHEST AP CLINICAL HISTORY: SOB TECHNIQUE: 2D digital imaging was performed. COMPARISON: CR,XR XR PORTABLE CHEST AP from 09/11/2019 FINDINGS: Exam is limited by technique and patient body habitus. Leads overlie the chest. The heart is again noted to be grossly enlarged. There is vascular prominence and mildly increased interstitial markings which could indicate mild CHF. IMPRESSION: Cardiomegaly and question of mild CHF. Lab Data Lab results reviewed: Yes I reviewed the patient's lab results. ECG Data Attestation: I personally reviewed and interpreted this ECG (s) as follows: Interpretation: EKG shows sinus rhythm at 62, normal axis, incomplete right bundle branch block, nonspecific ST changes, no STEMI, nondiagnostic EKG HPI General Mode of arrival: EMS . Date/Time Provider Initiated Documentation: 09/22/19 10:22 . Limitations to Documentation: no limitations . Information obtained by: patient, EMS, RN notes reviewed and old records reviewed . HPI Narrative: Brendan Corley is a 59-year-old man with a history of chronic sacral wound, CHF, COPD, multiple episodes of respiratory failure in the past, adrenal insufficiency, chronic kidney disease, hypertension, coronary artery disease, bipolar disorder, status post colostomy presenting to the emergency department with low oxygen long-term care facility, also appearing generally unwell. Patient is supposed to be using BiPAP nightly, he has a history of being intermittently noncompliant with this. Per facility, they state the patient did use his trilogy machine last night. They state that this morning they noted his O2 sat to be 77% on 2 L, patient speaking without apparent significant respiratory distress. Care facility also noted that patient seemed somewhat weaker than usual and generally somewhat unwell. EMS states that upon arrival they noted his O2 sat to be 100% on 2 L, but did find him to be febrile with tympanic temperature check. Patient states to me that he feels lousy he denies any localized pain, but states that he hurts everywhere, like I always do. Patient states that his shortness of breath seems somewhat worse than usual for him this morning. He denies having any other symptoms. Per record review, patient completed several weeks of IV vancomycin for infected sacral ulcer at the end of July. Related Data Home Medications Medication Instructions Recorded Confirmed cyanocobalamin (vitamin B-12) 1,000 mcg PO DAILY 12/23/17 09/22/19 ferrous sulfate 325 mg PO BID #0 tab 12/31/17 09/22/19 magnesium chloride [Mag 64] 64 mg PO BID #0 tab 02/10/18 09/22/19 terazosin 4 mg PO BID #0 cap 02/10/18 09/24/19 Centrum Complete 1 tab PO DAILY 03/01/18 09/22/19 ascorbic acid (vitamin C) [Vitamin 250 mg PO BID 03/01/18 09/24/19 C] melatonin 6 mg PO HS #30 tab 06/19/18 09/22/19 pantoprazole 40 mg PO DAILY #60 tab 06/19/18 09/22/19 calcium carbonate-vitamin D3 1 tab PO BID 07/09/18 09/22/19 [Calcium 500 + D] venlafaxine [Effexor XR] 112.5 mg PO DAILY 10/23/18 09/22/19 acetaminophen [Tylenol] 650 mg PO Q8H PRN 01/08/19 09/24/19 gabapentin 300 mg PO TID 01/08/19 09/22/19 Zyrtec 10 mg PO DAILY 02/23/19 09/22/19 amlodipine 10 mg PO DAILY 02/26/19 09/22/19 levothyroxine 12.5 mcg PO HS 02/26/19 09/22/19 Lantus Solostar U-100 Insulin 50 unit SUBCUT QAM 03/15/19 09/24/19 insulin aspart U-100 10 unit SC AC #15 ml 03/19/19 09/22/19 metoprolol tartrate 25 mg PO BID 05/01/19 09/22/19 Eliquis 2.5 mg PO BID #60 tab 05/20/19 09/22/19 clonidine HCl [Catapres] 0.1 mg PO TID #0 tab 05/20/19 09/22/19 Combivent Respimat 1 puff INHALATION Q6H PRN 06/02/19 09/22/19 acidophilus-pectin, citrus 1 cap PO DAILY 06/02/19 09/22/19 insulin lispro [Humalog KwikPen 0 unit SUBCUT AC 06/02/19 09/11/19 Insulin] risperidone [Risperdal] 1.5 mg PO HS 06/02/19 09/22/19 vitamin B complex 100 2-herbs 1 tab PO DAILY 06/02/19 09/22/19 nystatin 0 g TOPICAL BID #0 g 06/04/19 09/11/19 potassium bicarb-citric acid 20 meq PO DAILY #30 tab 06/04/19 09/22/19 sodium bicarbonate 650 mg PO BID #90 tab 06/04/19 09/22/19 CertaVite Senior-Antioxidant 1 tab PO QAM 06/07/19 09/11/19 Duoneb 3 ml INHALATION PRN PRN 06/07/19 09/22/19 erythromycin ethylsuccinate 100 mg PO AC #27 ml 09/06/19 09/22/19 oxycodone 5 mg PO Q4H PRN PRN #20 tab 09/06/19 09/22/19 ertapenem 1 gm IM Q24H #5 each 09/11/19 09/22/19 Lantus Solostar U-100 Insulin 5 unit SUBCUT HS 09/22/19 09/22/19 furosemide [Lasix] 30 mg PO .Q 72 H 09/22/19 09/22/19 doxycycline hyclate 100 mg PO DAILY@1000 09/24/19 09/24/19 prednisone 40 mg PO DAILY #0 tab 09/24/19 09/22/19 Previous Rx's Medication Instructions Recorded ferrous sulfate 325 mg PO BID #0 tab 12/31/17 magnesium chloride [Mag 64] 64 mg PO BID #0 tab 02/10/18 terazosin 4 mg PO BID #0 cap 02/10/18 melatonin 6 mg PO HS #30 tab 06/19/18 pantoprazole 40 mg PO DAILY #60 tab 06/19/18 insulin aspart U-100 10 unit SC AC #15 ml 03/19/19 Eliquis 2.5 mg PO BID #60 tab 05/20/19 clonidine HCl [Catapres] 0.1 mg PO TID #0 tab 05/20/19 nystatin 0 g TOPICAL BID #0 g 06/04/19 potassium bicarb-citric acid 20 meq PO DAILY #30 tab 06/04/19 sodium bicarbonate 650 mg PO BID #90 tab 06/04/19 erythromycin ethylsuccinate 100 mg PO AC #27 ml 09/06/19 oxycodone 5 mg PO Q4H PRN PRN #20 tab 09/06/19 ertapenem 1 gm IM Q24H #5 each 09/11/19 prednisone 40 mg PO DAILY #0 tab 09/24/19 Allergies Allergy/AdvReac Type Severity Reaction Status Date / Time lisinopril Allergy Unverified 07/29/20 10:06 General Stated Complaint: RespSymp YVES: 2 Review of Systems Narrative: Constitutional: denies fevers Eyes: denies eye pain ENT: denies ear pain, dental pain, sore throat Cardiovascular: denies chest pain Respiratory: reports SOB, cough GI: denies abdominal pain, vomiting, diarrhea : denies flank pain MSK: reports back pain, generalized arthralgias/myalgias Skin: denies rash Neuro: denies headaches, numbness, weakness [facility] Medical History Acromegaly (Chronic) Acute on chronic kidney failure (Resolved) Adrenal insufficiency (Chronic) Ambulatory dysfunction (Chronic) Anemia (Chronic Unknown) Atrial flutter, paroxysmal (Chronic) Back pain (Chronic 06/21/13) CAD (coronary artery disease) (Chronic) Cardiopulmonary arrest with successful resuscitation (Resolved) Chronic anxiety (Chronic) Chronic bipolar disorder (Chronic) a. With history of psychosis. Chronic cholecystitis (Chronic) Chronic insomnia (Chronic) Chronic iron deficiency anemia (Acute) Chronic pain (Chronic) On both Methadone and Fentanyl as well as Ultram and Naproxen. CKD (chronic kidney disease) (Chronic) Decubitus ulcer of sacral region, stage 4 (Acute) Decubitus ulcer, stage 4 with infection (Resolved) Diabetes mellitus (Chronic) Diabetic gastroparesis (Acute) Diabetic ulcer of left foot associated with diabetes mellitus due to underlying condition (Acute) Diabetic ulcer of toe associated with diabetes mellitus due to underlying condition, with bone involvement without evidence of necrosis (Inactive) 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 (Resolved) DVT (deep venous thrombosis) (Chronic) Dg April 2019. Has IVC filter placed 04/2019 Dyslipidemia (Chronic) Endocarditis due to Staphylococcus (Resolved) Heart failure with preserved ejection fraction (Acute) Hemorrhagic cystitis (Chronic) Hep C w/o coma, chronic (Chronic) History of DVT (deep vein thrombosis) (Chronic) Hyperkalemia (Resolved) Hypomagnesemia (Resolved) Hypothyroidism (Chronic) Hypoventilation associated with obesity syndrome (Chronic) Ileostomy in place (Acute) Impaired mobility and ADLs (Chronic) Inability to get out of bed (Chronic 06/21/13) Lactic acidosis (Resolved) MRSA bacteremia (Acute) Obesity (Chronic) a. Obesity though he has had significant weight loss since last seen. Obstructive sleep apnea (Chronic) Old non-ST elevation myocardial infarction (NSTEMI) (Acute) March 2019 Open wound of left lower extremity without complication (Acute) secondary to trauma and from anticoagulation 04/2019 Osteoarthritis of both knees (Chronic) Severe. a. [id number] bilateral knees. 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 2 diabetes mellitus (Resolved) Palliative care encounter (Chronic) DObbertin PEA (Pulseless electrical activity) (Acute) episode of bradycardic arrest/PEA. thought to be secondary to gram neg sepsis from acute sonny. 03/2019 Pedal edema (Chronic) Persistent vomiting in adult patient (Acute) Poor self care (Chronic 06/21/13) Poorly controlled type 2 diabetes mellitus with circulatory disorder (Chronic) Presence of IVC filter (Acute) Protein-calorie malnutrition, mild (Acute) Pulmonary hypertension (Chronic) Rheumatoid arthritis (Chronic) Sepsis (Resolved) Septic arthritis of elbow, right (Inactive) Toxic metabolic encephalopathy (Resolved) Ulcer of left lower leg (Chronic) this is healed and resolved. no longer requires dressing Ulcerative colitis (Chronic) UTI (urinary tract infection) (Resolved) UTI (urinary tract infection) due to Enterococcus (Resolved) Surgical History Arthroplasty of knee (Resolved 03/18/12) irrigation and lavage right Fracture, Open Treatment (Resolved) 06/06/17-[facility] [place] S/P ORIF RIGHT DISTAL HUMERUS FRACTURE History of insertion of T-tube into biliary tract (Chronic) S/P colectomy (Chronic) S/P proctocolectomy (Acute) Social History Smoking/Tobacco Use Status: Former Tobacco Use Alcohol Intake: former Drug use: Rarely Substance use type: marijuana Housing: correction Do you feel safe at home: Yes Do you feel safe in your relationship?: Yes Additional Social history: Living at [facility] in [place] Exam Narrative Exam Narrative: Constitutional: Chronically ill appearing, mildly diaphoretic, mild respiratory distress but otherwise conversing normally HENT: head atraumatic/normocephalic/normal inspection, mucous membranes moist Eyes: conjunctiva normal, sclera normal, pupils 3mm b/l Neck: no stridor, normal ROM, trachea midline Chest: normal inspection Resp: Tachypneic at 30, LCTAB Cardio: normal rate, normal rhythm, no murmur appreciated GI: abdomen soft, non-tender, non-distended, erythema of skin surrounding colostomy, unknown baseline Back: normal inspection, no rash of the thoracic and lumbar back, large stage IV sacral ulcer, erythematous, small amount of purulent drainage, some areas of macerated skin, unclear baseline status of this chronic wound Skin: warm, normal color, no other rash Neuro: alert, not altered, grossly non-focal, normal tone Ext: Moving all extremities equally, diabetic ulcer left foot, minimal surroun ding erythema Psych: normal mood, normal affect, normal behavior Course Vital Signs Vital signs: Vital Signs Temperature 37.4 C 09/22/19 10:12 Pulse 63 09/22/19 10:12 Respiratory Rate 30 H 09/22/19 10:12 Pulse Oximetry 100 09/22/19 10:12 Temperature 37.4 C 09/22/19 10:12 Temperature Source Skin 09/22/19 10:12 Pulse 63 09/22/19 10:12 Respiratory Rate 30 H 09/22/19 10:12 Blood Pressure Position Sitting 09/22/19 10:12 Pulse Oximetry 100 09/22/19 10:12 Oxygen Delivery Method Nasal Cannula 09/22/19 10:12 Oxygen Flow Rate 2 09/22/19 10:12
[2019-09-22 10:51] LABS: Abs Immature Grans 0.24 10^3/uL (0.0-0.06); Absolute Basophil Count 0.03 10^3/uL (0.0-0.2); BE (Venous) 2.6 mmol/L (-3-3); Basophils % 0.2; HCO3 (Venous) 30 mmol/L (22-28); HCT 37.9 % (40.0-50.0); Immature Grans % 1.6; Lymphocytes % 5.2; MCH 24.8 pg (27.0-33.0); MCV 85.6 fL (80-95); MPV 10.2 fL (8.0-11.0); Monocytes % 4.8; Neutrophils % 87.2; O2 Sat (Venous) 90 % (70-80); Platelet Count 198 10^3/uL (130-400); RBC 4.43 10^6/uL (4.36-5.78); RDW-SD 56.7 fL; TCO2 (Venous) 29 mmol/L (22-29); WBC 14.68 10^3/uL (4.4-10.8); pH (Venous) 7.24 (7.35-7.45); pO2 (Venous) 59 mm/Hg (28-44)
[2019-09-22 10:56] LABS: Absolute Eosinophil Count 0.15 10^3/uL (0.0-0.7); Absolute Lymphocyte Count 0.76 10^3/uL (1.2-3.4)
[2019-09-22 10:58] LABS: pCO2 (Venous) 71 mm/Hg (34-47)
[2019-09-22 11:20] LABS: ALT 20 U/L (16-63); AST 20 U/L (15-37); Albumin 2.6 g/dL (3.4-5.0); Alkaline Phosphatase 75 U/L (46-116); Anion Gap 4.6 mmol/L (3-11); BUN 36 mg/dL (7-18); Bilirubin, Total 0.8 mg/dL (0.2-1.0); CO2 30.4 mmol/L (21.0-32.0); CREATININE 1.96 mg/dL (0.70-1.30); Calcium 8.3 mg/dL (8.5-10.1); Chloride 108 mmol/L (98-107); Estimated GFR 35.06 (mL/min/1.73m2); Glucose 136 mg/dL (74-106); Sodium 143 mmol/L (136-145); Total Protein 5.6 g/dL (6.4-8.2); Troponin I 0.05 ng/mL (<0.06)
[2019-09-22 11:24] LABS: NT-proBNP 955 pg/mL (<300)
[2019-09-22 11:27] LABS: TSH (W/Ref FT4) 0.91 uIU/mL (0.36-3.74)
[2019-09-22 11:31] LABS: D-Dimer 1984 ng/mlFEU (<500)
[2019-09-22 11:34] LABS: Procalcitonin 1.6 ng/mL
[2019-09-22 11:35] LABS: Bilirubin Negative (Negative); Blood Small (Negative); Clarity Sl Cloudy (Clear); Glucose Negative (Negative); Ketones Negative (Negative); Leukocyte Esterase Trace (Negative); Nitrite Negative (Negative); Urobilinogen 0.2 EU/dL (Up TO 0.2)
[2019-09-22 11:46] LABS: Epithelial Cells Few HPF (Negative)
[2019-09-22 11:47] LABS: Bacteria Moderate HPF (Negative); C & S Indicated? Yes; Crystals Negative HPF (Negative); Mucus Moderate (Negative); Other Cells Few Transitional (Negative)
--- NOTE | 2019-09-22 12:30 | DI.US_ITS ---
EXAM: US EXTREMITY VENOUS BI CLINICAL HISTORY: elevated d-dimer with h/o DVT. TECHNIQUE: Bilateral lower extremity venous ultrasound performed using grayscale, color-flow, and sp ectral Doppler analysis. COMPARISON: No exams were available for comparison FINDINGS: Right lower extremity: The common femoral, femoral and popliteal veins demonstrate normal compressibi lity, augmentation, and color Doppler. The posterior tibial veins are patent. No superficial thrombo phlebitis or Vargas's cyst is seen. Subcutaneous edema is present. Left lower extremity ultrasound: There is echogenic, partially occlusive thrombus seen from the proxi mal femoral vein through the popliteal vein, measuring roughly 40 cm in length. Collaterals are pres ent. Findings are consistent with old clot. IMPRESSION: Right: Negative for DVT Left: Old thrombus extending from the proximal femoral vein through the popliteal vein. No acute casey p venous thrombosis is seen. DATA REPOSITORY:
[2019-09-22 14:06] LABS: Troponin I < 0.05 ng/mL (<0.06)
--- NOTE | 2019-09-22 14:16 | W.PM.HP.N ---
Date of service: 09/22/19 Time of Service: 14:19 Assessment and Plan Assessment and plan (1) Obstructive sleep apnea: Status: Chronic Assessment and plan: I think his hypoxemic event this morning was secondary to incorrect settings of his trilogy Since that time he has had no hypoxemia. Patient is to use his trilogy device whenever he is napping during the day or sleeping at night. Otherwise while eating he can use a low flow nasal cannula (2) Adrenal insufficiency: Status: Chronic Assessment and plan: Patient is chronically adrenally suppressed secondary to chronic prednisone use for his rheumatoid arthritis. In light of his acute illness I will put him on a short course of high-dose hydrocortisone and rapidly taper him back to his previous dose of prednisone 20 mg daily. Patient historically has had recurrent UTIs. Not sure whether he has recurrent infection at this point therefore we are going to get repeat urine culture after catheter change. If he spikes a fever tonight we will start him on broad-spectrum antibiotics. (3) Diabetic gastroparesis: Status: Acute Assessment and plan: Continue low-fat low residue diabetic diet along with EES 100 mg p.o. AC meals (4) Rheumatoid arthritis: Status: Chronic Assessment and plan: Hydrocortisone at high dose will be supplemented in place of his prednisone. Qualifiers: Rheumatoid arthritis location: multiple sites Rheumatoid factor presence: unspecified presence Qualified Code(s): M06.9 - Rheumatoid arthritis, unspecified (5) Chronic bipolar disorder: Status: Chronic Assessment and plan: Continue his home dose of risperidone and venlafaxine (6) Hypothyroidism: Status: Chronic Assessment and plan: TSH levels within normal limits. Continue current levothyroxine dose of 12.5 mcg nightly Qualifiers: Hypothyroidism type: acquired Qualified Code(s): E03.9 - Hypothyroidism, unspecified (7) Hypertension: Status: Chronic Assessment and plan: Continue current home dose of metoprolol tartrate and clonidine and amlodipine. We will hold off on furosemide right now as I am not convinced that he is in acute congestive heart failure either by clinical exam or laboratory studies nor by his chest x-ray. His home dose of furosemide is 30 mg every 72 hours. Qualifiers: Hypertension type: essential hypertension Qualified Code(s): I10 - Essential (primary) hypertension (8) CKD (chronic kidney disease): Status: Chronic Assessment and plan: His BUN and creatinine appear to be at its baseline. We will monitor while he is hospitalized Qualifiers: Chronic kidney disease stage: unspecified stage Qualified Code(s): N18.9 - Chronic kidney disease, unspecified (9) Poorly controlled type 2 diabetes mellitus with circulatory disorder: Status: Chronic Assessment and plan: Last A1c was 7.9% as of September 13, 2019. We will cover him with sliding scale NovoLog along with NovoLog for carb coverage at a 1-10 ratio. There is some confusion about his reported dose of Lantus. It is listed at 5 units nightly but then another place it is listed as 50 units of morning and 50 units in evening. I will get a cover him with 50 units at bedtime for now and monitor his blood sugars. (10) Atrial flutter, paroxysmal: Status: Chronic Assessment and plan: Currently remains in sinus rhythm. Continue metoprolol as prescribed in the long term. Continue apixaban at renally adjusted doses (11) Decubitus ulcer of sacral region, stage 4: Status: Acute Assessment and plan: He has a deep sacral decubitus ulcer that is failed to heal. There does not appear to be a purulent discharge and he appears to have pink granulation tissue around the wound edge. I will asked surgery to follow-up with him in the morning. For now they are using wet-to-dry dressing changes but previously he had a wound vacuum on the wound (12) Protein-calorie malnutrition, mild: Status: Acute Assessment and plan: Patient's had chronic protein calorie malnutrition resulting in a low albumin and protein stores. He has been receiving high-protein shakes between meals. I will ask for a nutritional consult. (13) History of DVT (deep vein thrombosis): Status: Chronic Assessment and plan: Patient has a chronic DVT in his left femoral vein down to the popliteal vein. Patient has an IVC filter in place and is chronically on apixaban. We will continue the current treatment as there is no fresh DVT in spite of his elevated d-dimer. (14) Heart failure with preserved ejection fraction: Status: Acute Assessment and plan: Last echo was performed August 02, 2019 and demonstrated normal left ventricular size and function with an ejection fraction of 50 to 55% however he has moderate concentric LVH. Right ventricle was not well visualized and therefore systolic function could not be assessed. He has no hemodynamically significant valvular lesions.For now we will hold off on any IV Lasix given these had poor oral intake and require some gentle IV fluid hydration. If his appetite picks up and is eating and drinking well I will DC his fluids in the morning. Otherwise his furosemide she only be given every third day as its per currently prescribed Qualifiers: Heart failure chronicity: chronic Qualified Code(s): I50.32 - Chronic diastolic (congestive) heart failure (15) Diabetic ulcer of left foot associated with diabetes mellitus due to underlying condition: Status: Acute Assessment and plan: His diabetic foot ulcer appears to be dry and shallow History of Present Illness History of Present Illness Chief Complaint: I do not feel well Narrative: 59-year-old morbidly obese male with poorly controlled type 2 diabetes mellitus requiring insulin, chronic kidney disease, coronary artery disease, paroxysmal atrial fibrillation, JESSICA, rheumatoid arthritis, Crohn's disease status post proctocolectomy with ileostomy, chronic sacral decubitus ulcer presents to the emergency department with complaints of generalized malaise and fatigue and generalized pain all over. He was sent in from the [facility] where he resides in [facility] because of hypoxemia. For the patient's JESSICA and hypoventilation syndrome he has been on a trilogy device and apparently had been placed on it last night at an inappropriate setting and this morning he was noted to have an oxygen saturation 77% on 2 L. When EMS arrived they noted his oxygen saturation to be 100% on 2 L. In the emergency department his oxygen saturation was running 98 to 100% on 2 L/min per nasal cannula. He reportedly had a fever of 102 at the long term but on arrival to emergency department he is afebrile. Patient had completed several weeks of IV vancomycin for infected sacral ulcer and just came off of a 7-day course of ertapenem for an E. coli UTI. That was completed 4 days ago. Evaluation emergency department clued routine labs including a CBC, d-dimer, CMP, blood lactate, troponin levels, procalcitonin level, TSH and a urinalysis along with urine and blood cultures. His urinalysis was abnormal and suspicious for UTI however it was obtained from a Downing catheter. This showed slightly cloudy urine with 100 mg/dL protein and small amount of blood trace leukocyte esterase with 10-20 RBCs per high-power field and 5-10 WBCs per high-power field and moderate bacteria and 20-50 coarse granular casts moderate meta mucus and a few transitional cells. It was negative for glucose nitrites or ketones. Specific gravity was increased at 1.020 pH was 6.0. CBC demonstrated a leukocytosis of 14,000 however the patient is on a tapering dose of prednisone. He is usually on prednisone for his rheumatoid arthritis but each time he is hospitalized he gets on stress dose corticosteroids and requires a slow taper. He is currently on prednisone 20 mg daily and just come down from 25 mg daily for the past 2 weeks. His electrolytes are unremarkable and his BUN/creatinine are elevated at 36 and 1.96 where is his baseline BUN has been as high as 92 couple weeks ago as baseline creatinine is around 2.0. His blood lactate level was normal at 1.0 is procalcitonin level was 1.6 and TSH was normal at 0.91. Because of the elevated d-dimer concern was raised for fresh DVT or PE despite the fact that he is on apixaban 2.5 mg twice daily. However because of his chronic renal insufficiency it was deemed unsafe to give him IV contrast for CTA. VQ scan has been ordered but will not be done till tomorrow. Venous duplex imaging was performed and showed an old thrombus extending from his left proximal femoral vein through the popliteal vein but no acute thrombosis is seen. Right side was negative for DVT. EKG demonstrates normal sinus rhythm with a nonspecific intraventricular conduction delay some nonspecific J-point elevation across the precordial leads and nonspecific T wave abnormalities in limb lead I and aVL. Patient is being admitted under observation status for IV fluid hydration and monitoring for any incipient infection. Blood cultures have been obtained we will asked nursing to change his Downing catheter and get a fresh urine specimen for culture. At this time we will refrain from starting antibiotics since he has been on multiple broad-spectrum antibiotics recently and we have no specific evidence for infection. His chest x-ray was read as cardiomegaly and possible mild CHF however I compared it to his previous chest x-rays and there is been no significant exchange specialist his last 3 chest x-rays. His proBNP is mildly elevated at 955 but his baseline is between 500 and 600 and when he is been in CHF his proBNP is in the thousands anywhere from 3000-15,000. Review of Systems All systems reviewed & are unremarkable except as noted in HPI and below Constitutional Constitutional: Reports body ache(s), Reports fever(s), Reports malaise and Reports poor appetite Cardiovascular Cardiovascular: Reports system reviewed and no additional complaints, except as documented Respiratory Respiratory: Reports system reviewed and no additional complaints, except as documented Gastrointestinal Gastrointestinal: Reports system reviewed and no additional complaints, except as documented, Denies abdominal pain, Reports diarrhea (Patient has ileostomy and has liquid stools all the time), Reports nausea and Denies vomiting Genitourinary Genitourinary: Reports other (Patient has no sensation of dysuria and has an Downing catheter in place) [facility] Medical History Acromegaly (Chronic) Acute on chronic kidney failure (Resolved) Adrenal insufficiency (Chronic) Ambulatory dysfunction (Chronic) Anemia (Chronic Unknown) Atrial flutter, paroxysmal (Chronic) Back pain (Chronic 06/21/13) CAD (coronary artery disease) (Chronic) Cardiopulmonary arrest with successful resuscitation (Resolved) Chronic anxiety (Chronic) Chronic bipolar disorder (Chronic) a. With history of psychosis. Chronic cholecystitis (Chronic) Chronic insomnia (Chronic) Chronic iron deficiency anemia (Acute) Chronic pain (Chronic) On both Methadone and Fentanyl as well as Ultram and Naproxen. CKD (chronic kidney disease) (Chronic) Decubitus ulcer of sacral region, stage 4 (Acute) Decubitus ulcer, stage 4 with infection (Resolved) Diabetes mellitus (Chronic) Diabetic gastroparesis (Acute) Diabetic ulcer of left foot associated with diabetes mellitus due to underlying condition (Acute) Diabetic ulcer of toe associated with diabetes mellitus due to underlying condition, with bone involvement without evidence of necrosis (Inactive) 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 (Resolved) DVT (deep venous thrombosis) (Chronic) Dg April 2019. Has IVC filter placed 04/2019 Dyslipidemia (Chronic) Endocarditis due to Staphylococcus (Resolved) Heart failure with preserved ejection fraction (Acute) Hemorrhagic cystitis (Chronic) Hep C w/o coma, chronic (Chronic) History of DVT (deep vein thrombosis) (Chronic) Hyperkalemia (Resolved) Hypomagnesemia (Resolved) Hypothyroidism (Chronic) Hypoventilation associated with obesity syndrome (Chronic) Ileostomy in place (Acute) Impaired mobility and ADLs (Chronic) Inability to get out of bed (Chronic 06/21/13) Lactic acidosis (Resolved) MRSA bacteremia (Acute) Obesity (Chronic) a. Obesity though he has had significant weight loss since last seen. Obstructive sleep apnea (Chronic) Old non-ST elevation myocardial infarction (NSTEMI) (Acute) March 2019 Open wound of left lower extremity without complication (Acute) secondary to trauma and from anticoagulation 04/2019 Osteoarthritis of both knees (Chronic) Severe. a. [id number] bilateral knees. 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 2 diabetes mellitus (Resolved) Palliative care encounter (Chronic) DObbertin PEA (Pulseless electrical activity) (Acute) episode of bradycardic arrest/PEA. thought to be secondary to gram neg sepsis from acute sonny. 03/2019 Pedal edema (Chronic) Persistent vomiting in adult patient (Acute) Poor self care (Chronic 06/21/13) Poorly controlled type 2 diabetes mellitus with circulatory disorder (Chronic) Presence of IVC filter (Acute) Protein-calorie malnutrition, mild (Acute) Pulmonary hypertension (Chronic) Rheumatoid arthritis (Chronic) Sepsis (Resolved) Septic arthritis of elbow, right (Inactive) Toxic metabolic encephalopathy (Resolved) Ulcer of left lower leg (Chronic) this is healed and resolved. no longer requires dressing Ulcerative colitis (Chronic) UTI (urinary tract infection) (Resolved) UTI (urinary tract infection) due to Enterococcus (Resolved) Surgical History Arthroplasty of knee (Resolved 03/18/12) irrigation and lavage right Fracture, Open Treatment (Resolved) 06/06/17[place] [place]IF RIGHT DISTAL HUMERUS FRACTURE History of insertion of T-tube into biliary tract (Chronic) S/P colectomy (Chronic) S/P proctocolectomy (Acute) Social History Smoking/Tobacco Use Status: Former Tobacco Use Alcohol Intake: former Drug use: Rarely Substance use type: marijuana Housing: long term Do you feel safe at home: Yes Do you feel safe in your relationship?: Yes Additional Social history[facility] Medications and Allergies Home Medications Medication Instructions Recorded Confirmed Type cyanocobalamin (vitamin B-12) 1,000 mcg PO DAILY 12/23/17 09/22/19 History ferrous sulfate 325 mg PO BID #0 tab 12/31/17 09/22/19 Rx magnesium chloride [Mag 64] 64 mg PO BID #0 tab 02/10/18 09/22/19 Rx terazosin 4 mg PO BID #0 cap 02/10/18 09/11/19 Rx Centrum Complete 1 tab PO DAILY 03/01/18 09/22/19 History ascorbic acid (vitamin C) [Vitamin 1 tab PO BID 03/01/18 09/11/19 History C] melatonin 6 mg PO HS #30 tab 06/19/18 09/22/19 Rx pantoprazole 40 mg PO DAILY #60 tab 06/19/18 09/22/19 Rx calcium carbonate-vitamin D3 1 tab PO BID 07/09/18 09/22/19 History [Calcium 500 + D] venlafaxine [Effexor XR] 112.5 mg PO DAILY 10/23/18 09/22/19 History acetaminophen [Tylenol] See Rx Instructions .ROUTE .COMPLEX 01/08/19 09/22/19 History gabapentin 300 mg PO TID 01/08/19 09/22/19 History Zyrtec 10 mg PO DAILY 02/23/19 09/22/19 History amlodipine 10 mg PO DAILY 02/26/19 09/22/19 History levothyroxine 12.5 mcg PO HS 02/26/19 09/22/19 History Lantus Solostar U-100 Insulin 50 unit SUBCUT DIRECTED 03/15/19 09/22/19 History insulin aspart U-100 10 unit SC AC #15 ml 03/19/19 09/22/19 Rx metoprolol tartrate 25 mg PO BID 05/01/19 09/22/19 History Eliquis 2.5 mg PO BID #60 tab 05/20/19 09/22/19 Rx clonidine HCl [Catapres] 0.1 mg PO TID #0 tab 05/20/19 09/22/19 Rx Combivent Respimat 1 puff INHALATION Q6H PRN 06/02/19 09/22/19 History Enrique 1 packet PO BID 06/02/19 09/11/19 History acidophilus-pectin, citrus 1 cap PO DAILY 06/02/19 09/22/19 History insulin lispro [Humalog KwikPen 0 unit SUBCUT AC 06/02/19 09/11/19 History Insulin] risperidone [Risperdal] 1.5 mg PO HS 06/02/19 09/22/19 History vitamin B complex 100 2-herbs 1 tab PO DAILY 06/02/19 09/22/19 History nystatin 0 g TOPICAL BID #0 g 06/04/19 09/11/19 Rx potassium bicarb-citric acid 20 meq PO DAILY #30 tab 06/04/19 09/22/19 Rx sodium bicarbonate 650 mg PO BID #90 tab 06/04/19 09/22/19 Rx CertaVite Senior-Antioxidant 1 tab PO QAM 06/07/19 09/11/19 History Duoneb 3 ml INHALATION PRN PRN 06/07/19 09/22/19 History lorazepam [Ativan] 1 mg PO Q8H PRN 06/07/19 09/11/19 History Phlexy-Vits 1 oz PO TID #15 ea 09/06/19 09/11/19 Rx erythromycin ethylsuccinate 100 mg PO AC #27 ml 09/06/19 09/22/19 Rx oxycodone 5 mg PO Q4H PRN PRN #20 tab 09/06/19 09/22/19 Rx ertapenem 1 gm IM Q24H #5 each 09/11/19 09/22/19 Rx furosemide [Lasix] 30 mg PO .Q 72 H 09/22/19 09/22/19 History insulin glargine [Lantus Solostar 5 unit SUBCUT HS 09/22/19 09/22/19 History U-100 Insulin] prednisone 20 mg PO DAILY 09/22/19 09/22/19 History Allergies Allergy/AdvReac Type Severity Reaction Status Date / Time lisinopril Allergy Unverified 09/22/19 10:06 Exam Narrative Exam Narrative: Obese male who appears to be ill but not toxic. HEENT is remarkable for dry mucous membranes. Neck is supple nontender no JVD. Lungs are clear to auscultation. Heart is regular rate and rhythm Abdomen is obese soft mildly tender but without rebound tenderness or guarding. Active bowel sounds. Ileostomy in the right lower quadrant is draining light brown liquid stool. Skin near the ileostomy is erythematous but appears to be irritated by the ileostomy bag. Skin is moist and macerated. Presacral area reveals a large deep wound with no purulent drainage but with pink granulation tissue around the wound Extremities he has a healed skin ulcer over the left lateral tibia, right foot is status post amputation of his great toe. He has some blackened eschars on the MTP heads of the right foot. His left foot he has a shallow 1 x 2 cm ulcer underneath the third MTP head. All of his toenails are hypertrophic with chronic subungual fungal infection. Pedal pulses are 2+ and feet are warm without cyanosis Results Imaging Chest x-ray: report reviewed and image reviewed EKG: image reviewed Labs Result diagrams: 09/22/19 10:30 09/22/19 10:30 Labs: Laboratory Results - last 24 hr 09/22/19 09/22/19 09/22/19 10:30 10:30 10:30 WBC 14.68 H RBC 4.43 Hgb 11.0 L Hct 37.9 L MCV 85.6 MCH 24.8 L MCHC 29.0 L RDW 18.0 H Plt Count 198 MPV 10.2 Immature Gran % 1.6 Neutrophils % 87.2 Lymphocytes % 5.2 Monocytes % 4.8 Eosinophils % 1.0 Basophils % 0.2 Absolute Neutrophils 12.80 H Absolute Lymphocytes 0.76 L Absolute Monocytes 0.70 Absolute Eosinophils 0.15 Absolute Basophils 0.03 D-Dimer VBG pH VBG pCO2 VBG pO2 VBG HCO3 VBG Total CO2 VBG O2 Saturation VBG Base Excess Sodium 143 Potassium 5.0 Chloride 108 H Carbon Dioxide 30.4 Anion Gap 4.6 BUN 36 H Creatinine 1.96 H Estimated GFR/1.73 m2 35.06 Glucose 136 H Lactate 1.0 Calcium 8.3 L Total Bilirubin 0.8 AST 20 ALT 20 Alkaline Phosphatase 75 Troponin I 0.05 NT-Pro-B Natriuret Pep Total Protein 5.6 L Albumin 2.6 L Procalcitonin 1.6 TSH Urine Color Urine Clarity Urine pH Ur Specific Emerson Urine Protein Urine Ketones Urine Blood Urine Nitrite Urine Bilirubin Urine Urobilinogen Ur Leukocyte Esterase Urine RBC Urine WBC Ur Epithelial Cells Urine Crystals Urine Bacteria Urine Casts Urine Mucus Urine Other Ur Culture Indicated? Urine Glucose 09/22/19 09/22/19 09/22/19 10:30 10:30 10:30 WBC RBC Hgb Hct MCV MCH MCHC RDW Plt Count MPV Immature Gran % Neutrophils % Lymphocytes % Monocytes % Eosinophils % Basophils % Absolute Neutrophils Absolute Lymphocytes Absolute Monocytes Absolute Eosinophils Absolute Basophils D-Dimer 1984 H VBG pH 7.24 L VBG pCO2 71 H* VBG pO2 59 H VBG HCO3 30 H VBG Total CO2 29 VBG O2 Saturation 90 H VBG Base Excess 2.6 Sodium Potassium Chloride Carbon Dioxide Anion Gap BUN Creatinine Estimated GFR/1.73 m2 Glucose Lactate Calcium Total Bilirubin AST ALT Alkaline Phosphatase Troponin I NT-Pro-B Natriuret Pep Total Protein Albumin Procalcitonin TSH 0.91 Urine Color Urine Clarity Urine pH Ur Specific Emerson Urine Protein Urine Ketones Urine Blood Urine Nitrite Urine Bilirubin Urine Urobilinogen Ur Leukocyte Esterase Urine RBC Urine WBC Ur Epithelial Cells Urine Crystals Urine Bacteria Urine Casts Urine Mucus Urine Other Ur Culture Indicated? Urine Glucose 09/22/19 09/22/19 09/22/19 10:30 11:20 13:31 WBC RBC Hgb Hct MCV MCH MCHC RDW Plt Count MPV Immature Gran % Neutrophils % Lymphocytes % Monocytes % Eosinophils % Basophils % Absolute Neutrophils Absolute Lymphocytes Absolute Monocytes Absolute Eosinophils Absolute Basophils D-Dimer VBG pH VBG pCO2 VBG pO2 VBG HCO3 VBG Total CO2 VBG O2 Saturation VBG Base Excess Sodium Potassium Chloride Carbon Dioxide Anion Gap BUN Creatinine Estimated GFR/1.73 m2 Glucose Lactate Calcium Total Bilirubin AST ALT Alkaline Phosphatase Troponin I < 0.05 NT-Pro-B Natriuret Pep 955 H Total Protein Albumin Procalcitonin TSH Urine Color Yellow Urine Clarity Sl cloudy Urine pH 6.0 Ur Specific Emerson 1.020 Urine Protein 100 H Urine Ketones Negative Urine Blood Small H Urine Nitrite Negative Urine Bilirubin Negative Urine Urobilinogen 0.2 Ur Leukocyte Esterase Trace H Urine RBC 10-20 H Urine WBC 5-10 Ur Epithelial Cells Few Urine Crystals Negative Urine Bacteria Moderate Urine Casts 20-50 coarsegranular Urine Mucus Moderate Urine Other Few transitional Ur Culture Indicated? Yes Urine Glucose Negative Last Vital Signs Temp 37.1 C 09/22/19 14:05 Pulse 60 09/22/19 14:00 Resp 20 09/22/19 14:00 BP 141/70 H 09/22/19 14:00 Pulse Ox 97 09/22/19 14:00 COVID-19 Screening Have you,or household,traveled outside [place] in last 14 days?: No
--- NOTE | 2019-09-22 15:40 | NUR.NOTE ---
Nursing Note: Spoke to Abbie at the [facility] regarding the sacral wound . Patient had a wound vac in place until this morning. This was removed today as patient was to have a follow up appointment with Dr. Webb today. Dr David Webb had to cancel the appointment . Wound was packed wet to dry for transfer here from the [facility]. [facility] was updated to information obtained
[2019-09-22] MEDS: Hydrocortisone SOD SUC. 100 MG VIAL IVP (15:53)
[2019-09-22] MEDS: Normal Saline Flush 10 ML SYR IVP (15:54)
[2019-09-22] MEDS: Insulin Aspart 300 UNITS/3 ML PEN SC ×3 (17:08→23:40)
[2019-09-22] MEDS: Lidocaine 2% Jelly 11 ML SYR UR (17:54)
[2019-09-22] MEDS: Lactated Ringers 1,000 ML 85 ML IV (17:54)
[2019-09-22 19:06] LABS: Bilirubin Negative (Negative); Blood Large (Negative); Clarity Sl Cloudy (Clear); Glucose Negative (Negative); Ketones Negative (Negative); Leukocyte Esterase Negative (Negative); Nitrite Negative (Negative); Specific Gravity 1.015 (1.005-1.025); Urobilinogen 0.2 EU/dL (Up TO 0.2)
[2019-09-22 19:23] LABS: Bacteria Negative HPF (Negative); C & S Indicated? No; Casts Negative LPF (Negative); Crystals Negative HPF (Negative); Epithelial Cells Rare HPF (Negative); Mucus Negative (Negative); RBC 20-50 HPF (0-2); WBC 0-2 HPF (0-5)
[2019-09-22] MEDS: Magnesium Chloride 64 MG TABCR PO (20:07)
[2019-09-22] MEDS: Metoprolol 25 MG TAB PO (20:07)
[2019-09-22] MEDS: Ferrous Sulfate 325 MG TAB PO (20:07)
[2019-09-22] MEDS: Apixaban 2.5 MG TAB PO (20:07)
[2019-09-22] MEDS: Gabapentin 100 MG CAP 300 MG PO (20:07)
[2019-09-22] MEDS: Sodium Bicarbonate 650 MG TAB PO (20:07)
[2019-09-22] MEDS: cloNIDine 0.1 MG TAB PO (20:07)
[2019-09-22] MEDS: Ascorbic Acid 500 MG TAB PO (20:07)
[2019-09-22] MEDS: risperiDONE 1 MG TAB 1.5 MG PO (23:36)
[2019-09-22] MEDS: Levothyroxine 25 MCG TAB 12.5 MCG PO (23:36)
[2019-09-22] MEDS: Hydrocortisone SOD SUC. 100 MG VIAL 50 MG IVP (23:37)
[2019-09-22] MEDS: Insulin Glargine 300 UNITS/3 ML PEN 50 UNITS SC (23:38)
[2019-09-23] VITALS: BP 154/80; PULSE 58; RESP 20; TEMP 36.2; O2SAT 92
--- NOTE | 2019-09-23 | DI.NM_ITS ---
EXAM: NM LUNG SCAN VENT PERF GRP CLINICAL HISTORY: dyspnea, hypoxemia. TECHNIQUE: Injected Dose: Ventilation: 35 mCi Tc-99m DTPA via inhalation Perfusion: 4 mCi Tc-99m MAA via IV COMPARISON: CR,XR XR PORTABLE CHEST AP from 09/11/2019 CR XR PORTABLE CHEST AP from 09/22/2019 CR XR PORTABLE CHEST AP from 09/22/2019 FINDINGS: Chest X-Ray: Limited by portable technique. Marked cardiomegaly. Elevated left diaphragm. Vascular prominence and increased interstitial markings may indicate CHF. . The exam is somewhat limited by the patient's inability to elevate the arms. Perfusion: There is a matched small defect in the lingula as well as right middle lobe. Ventilation extremely limited ventilation images with multiple bilateral defects. IMPRESSION: 1. Low probability VQ examination. . . . Modified PIOPED II criteria Probability Criteria High Two or more segments of V/Q mismatch Low Normal Perfusion, Non segmental perfusion abnormalitie s, pleural effusion in at least 1/3 of pleural cavity with no other defect Radiograph/perfusion matched defect in mid to upper lung confined to segment, one to three small segmental perfusion defects (<25% of segment) Perfusion defect smaller than corresponding radiogra phic lesion. Intermediate All other findings DATA REPOSITORY:
[2019-09-23 04:40] VITALS: BP 145/77; PULSE 44; RESP 20; TEMP 36; O2SAT 95
[2019-09-23] MEDS: Hydrocortisone SOD SUC. 100 MG VIAL 50 MG IVP ×4 (04:55→22:06)
[2019-09-23] MEDS: Lactated Ringers 1,000 ML 85 ML IV (04:56)
[2019-09-23 06:59] LABS: Abs Immature Grans 0.13 10^3/uL (0.0-0.06); Absolute Basophil Count 0.02 10^3/uL (0.0-0.2); Absolute Lymphocyte Count 0.71 10^3/uL (1.2-3.4); Absolute Monocyte Count 0.26 10^3/uL (0.1-0.8); Absolute Neutrophil Count 8.02 10^3/uL (1.2-6.7); Basophils % 0.2; HCT 36.2 % (40.0-50.0); HGB 10.9 g/dL (13.5-17.5); Immature Grans % 1.4; Lymphocytes % 7.8; MCH 24.8 pg (27.0-33.0); MCHC 30.1 % (32.0-36.0); MCV 82.5 fL (80-95); Monocytes % 2.8; Neutrophils % 87.8; Platelet Count 184 10^3/uL (130-400); RBC 4.39 10^6/uL (4.36-5.78); RDW 17.4 % (11.8-14.1); RDW-SD 52.3 fL; WBC 9.14 10^3/uL (4.4-10.8)
[2019-09-23 07:00] LABS: Anion Gap 4.9 mmol/L (3-11); BUN 42 mg/dL (7-18); CO2 28.1 mmol/L (21.0-32.0); CREATININE 2.06 mg/dL (0.70-1.30); Calcium 8.7 mg/dL (8.5-10.1); Chloride 107 mmol/L (98-107); Glucose 318 mg/dL (74-106); Magnesium 1.9 mg/dL (1.8-2.4); Potassium 5.4 mmol/L (3.5-5.1); Sodium 140 mmol/L (136-145)
--- NOTE | 2019-09-23 08:45 | PDOC.CMIN ---
- If Service Date Differs Date of service: 09/23/19 Time of Service: 08:45 Care Management Initial Assess REASON FOR HOSPITALIZATION:: Obstructive sleep apnea PAST MEDICAL HISTORY/PAST SURGICAL HISTORY:: Medical History . Acromegaly (Chronic). Acute on chronic kidney failure (Resolved). Adrenal insufficiency (Chronic). Ambulatory dysfunction (Chronic). Anemia (Chronic Unknown). Atrial flutter, paroxysmal (Chronic). Back pain (Chronic 06/21/13). CAD (coronary artery disease) (Chronic). Cardiopulmonary arrest with successful resuscitation (Resolved). Chronic anxiety (Chronic). Chronic bipolar disorder (Chronic). a. With history of psychosis. Chronic cholecystitis (Chronic). Chronic insomnia (Chronic). Chronic iron deficiency anemia (Acute). Chronic pain (Chronic). On both Methadone and Fentanyl as well as Ultram and Naproxen. CKD (chronic kidney disease) (Chronic). Decubitus ulcer of sacral region, stage 4 (Acute). Decubitus ulcer, stage 4 with infection (Resolved). Diabetes mellitus (Chronic). Diabetic gastroparesis (Acute). Diabetic ulcer of left foot associated with diabetes mellitus due to underlying condition (Acute). Diabetic ulcer of toe associated with diabetes mellitus due to underlying condition, with bone involvement without evidence of necrosis (Inactive). 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 (Resolved). DVT (deep venous thrombosis) (Chronic). Dg April 2019. Has IVC filter placed 04/2019. Dyslipidemia (Chronic). Endocarditis due to Staphylococcus (Resolved). Heart failure with preserved ejection fraction (Acute). Hemorrhagic cystitis (Chronic). Hep C w/o coma, chronic (Chronic). History of DVT (deep vein thrombosis) (Chronic). Hyperkalemia (Resolved). Hypomagnesemia (Resolved). Hypothyroidism (Chronic). Hypoventilation associated with obesity syndrome (Chronic). Ileostomy in place (Acute). Impaired mobility and ADLs (Chronic). Inability to get out of bed (Chronic 06/21/13). Lactic acidosis (Resolved). MRSA bacteremia (Acute). Obesity (Chronic). a. Obesity though he has had significant weight loss since last seen. Obstructive sleep apnea (Chronic). Old non-ST elevation myocardial infarction (NSTEMI) (Acute). March 2019. Open wound of left lower extremity without complication (Acute). secondary to trauma and from anticoagulation 04/2019. Osteoarthritis of both knees (Chronic). Severe. a. [id number] bilateral knees. 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 2 diabetes mellitus (Resolved). Palliative care encounter (Chronic). DObbertin. PEA (Pulseless electrical activity) (Acute). episode of bradycardic arrest/PEA. thought to be secondary to gram neg sepsis from acute sonny. 03/2019. Pedal edema (Chronic). Persistent vomiting in adult patient (Acute). Poor self care (Chronic 06/21/13). Poorly controlled type 2 diabetes mellitus with circulatory disorder (Chronic). Presence of IVC filter (Acute). Protein-calorie malnutrition, mild (Acute). Pulmonary hypertension (Chronic). Rheumatoid arthritis (Chronic). Sepsis (Resolved). Septic arthritis of elbow, right (Inactive). Toxic metabolic encephalopathy (Resolved). Ulcer of left lower leg (Chronic). this is healed and resolved. no longer requires dressing. Ulcerative colitis (Chronic). UTI (urinary tract infection) (Resolved). UTI (urinary tract infection) due to Enterococcus (Resolved). Surgical History . Arthroplasty of knee (Resolved 03/18/12). irrigation and lavage right. Fracture, Open Treatment (Resolved). 06/06/[facility] [place] OR[place] RIGHT DISTAL HUMERUS FRACTURE. History of insertion of T-tube into biliary tract (Chronic). S/P colectomy (Chronic). S/P proctocolectomy (Acute) PREVIOUS FUNCTIONAL STATUS/SOCIAL/FAMILY SUPPORTS:: Brendan is a halfway resident at the [facility] facility in [place] and requires assistance with all ADLs. Brendan has a sister, Lian Hardy (P#[phone]) who lives in [facility] but they have limited contact. They do speak via phone every couple of weeks. he also has numerous nieces and nephews but states he rarely sees them. His sister is his only identified family support. Brendan enjoys reading and watching TV. CURRENT FUNCTIONAL STATUS:: Brendan was sitting up in bed when CM met with him. He was pleasant and smiling ad stated that he has been well since he returned to the [facility]. He shared that his sacral decubitus is healing slowly and that he is feeling pretty well. Brendan did state that he has developed a rash on his legs and back and would like someone to address it. He denies pruritis or pain from the rash. Its just there. Brendan will likely return to the [facility] tomorrow. ADVANCE DIRECTIVES:: [facility] on file Has patient been provided with info about the portal/API?: No Did the patient sign up for the portal?: No CODE STATUS:: Full Code INSURANCE COVERAGE / FINANCIAL ISSUES:: Medicare. Medicaid CURRENT HOME/COMMUNITY SERVICES/EQUIPMENT:: Brendan is a resident at the [facility]-the facility manages his service and equipment needs. PRIMARY CARE PHYSICIAN:: Dr. Renteria at [facility] POTENTIAL DISCHARGE NEEDS:: Follow up with his provider at the [facility] PATIENT/FAMILY EDUCATION NEEDS:: Review discharge instructions, discuss Ask Me Three. TRANSPORTATION:: via [facility] W/C van coordinated by KATELYN PLAN:: Brendan will return to the [facility] when medically stable. He will follow up with the providers and plan of care at the facility. Brendan will transport via ambulance coordinated by CM.
[2019-09-23] MEDS: Insulin Aspart 300 UNITS/3 ML PEN SC ×6 (08:54→18:45)
[2019-09-23] MEDS: Magnesium Chloride 64 MG TABCR PO ×2 (08:55→20:07)
[2019-09-23] MEDS: amLODIPine 5 MG TAB 10 MG PO (08:55)
[2019-09-23] MEDS: Gabapentin 100 MG CAP 300 MG PO ×3 (08:55→20:07)
[2019-09-23] MEDS: Cetirizine 10 MG TAB PO (08:55)
[2019-09-23] MEDS: Multivitamin TAB 1 TAB PO (08:55)
[2019-09-23] MEDS: Sodium Bicarbonate 650 MG TAB PO ×2 (08:55→20:07)
[2019-09-23] MEDS: Ascorbic Acid 500 MG TAB PO ×2 (08:56→20:10)
[2019-09-23] MEDS: oxyCODONE 5 MG TAB PO (08:56)
[2019-09-23] MEDS: Metoprolol 25 MG TAB PO (08:56)
[2019-09-23] MEDS: Vitamins B Comp w/C TAB 1 TAB PO (08:56)
[2019-09-23] MEDS: Venlafaxine 37.5 MG CAPCR 112.5 MG PO (08:56)
[2019-09-23] MEDS: Ferrous Sulfate 325 MG TAB PO ×2 (08:56→20:10)
[2019-09-23] MEDS: Cyanocobalamin 500 MCG TAB 1000 MCG PO (08:57)
[2019-09-23] MEDS: cloNIDine 0.1 MG TAB PO ×3 (08:57→20:10)
[2019-09-23] MEDS: Normal Saline Flush 10 ML SYR IVP ×2 (08:57→22:08)
[2019-09-23] MEDS: Lactobacillus Acidophilus CAP 1 CAP PO (08:57)
[2019-09-23] MEDS: Pantoprazole 40 MG TABCR PO (08:57)
[2019-09-23] MEDS: Apixaban 2.5 MG TAB PO ×2 (08:57→20:10)
[2019-09-23 09:17] VITALS: BP 168/84; PULSE 74; RESP 18; TEMP 36.2; O2SAT 97
--- NOTE | 2019-09-23 13:41 | PGE_ITS ---
Date of Service Date of service: 09/23/19 Time of Service: 13:41 Assessment and Plan Assessment and plan (1) Decubitus ulcer of sacral region, stage 4: Status: Acute Assessment and plan: We will asked Dr. Shelli Newman to evaluate his sacral decubitus and decide whether to reapply the wound vacuum. Specifically I will ask her to evaluate the foreign body that was visualized by the wound care nurse. (2) Diabetic ulcer of left foot associated with diabetes mellitus due to underlying condition: Status: Acute Assessment and plan: I spoke with Dr. Harris Ashford, maintenance department technician, who will see the patient this afternoon and assess and treat his diabetic foot wound which is also been a chronic issue for this patient. Qualifiers: Diabetic foot ulcer location: toe Non-pressure ulcer stage: limited to breakdown of skin Qualified Code(s): E08.621 - Diabetes mellitus due to underlying condition with foot ulcer; L97.521 - Non-pressure chronic ulcer of other part of left foot limited to breakdown of skin (3) Obstructive sleep apnea: Status: Chronic Assessment and plan: Patient did well with his trilogy overnight. This morning he was on room air and his oxygen saturation was down to 85% but is since come up to 97% on 2 L per nasal cannula. I do agree with nursing that he seems to be a little volume overloaded this is probably due to withholding his furosemide and given him some IV fluids overnight. I will give him a one-time dose of oral Lasix. Apparently at the senior care he is on furosemide 30 mg every 72 hours. (4) Adrenal insufficiency: Status: Chronic Assessment and plan: Patient responded well to high-dose hydrocortisone overnight with no antibiotic treatment. Patient has chronic adrenal insuff iciency and may need a slower taper of his prednisone. He was currently down to 20 mg daily. This may be needed to increase to 25 mg or even 30 mg daily. (5) Diabetic gastroparesis: Status: Acute Assessment and plan: Continue low-fat low residue diabetic diet along with EES 100 mg p.o. AC meals (6) Rheumatoid arthritis: Status: Chronic Assessment and plan: Hydrocortisone at high dose will be supplemented in place of his prednisone. Qualifiers: Rheumatoid arthritis location: multiple sites Rheumatoid factor presence: unspecified presence Qualified Code(s): M06.9 - Rheumatoid arthritis, unspecified (7) Chronic bipolar disorder: Status: Chronic Assessment and plan: Continue his home dose of risperidone and venlafaxine (8) Hypothyroidism: Status: Chronic Assessment and plan: TSH levels within normal limits. Continue current levothyroxine dose of 12.5 mcg nightly Qualifiers: Hypothyroidism type: acquired Qualified Code(s): E03.9 - Hypothyroidism, unspecified (9) Hypertension: Status: Chronic Assessment and plan: Continue current home dose of metoprolol tartrate and clonidine and amlodipine. Patient will receive a dose of po lasix this afternoon. Qualifiers: Hypertension type: essential hypertension Qualified Code(s): I10 - Essential (primary) hypertension (10) CKD (chronic kidney disease): Status: Chronic Assessment and plan: His BUN and creatinine appear to be at its baseline. We will monitor while he is hospitalized Qualifiers: Chronic kidney disease stage: unspecified stage Qualified Code(s): N18.9 - Chronic kidney disease, unspecified (11) Poorly controlled type 2 diabetes mellitus with circulatory disorder: Status: Chronic Assessment and plan: Pharmacy confirmed that he takes Lantus 50 units in the a.m. and 5 units at HS. This is not a realistic dose. I have asked pharmacy to increase this to at least 15 units at HS. He will continue w/ [facility] for coverage of his steroids and take a sliding scale along w/ CHO coverage. (12) Atrial flutter, paroxysmal: Status: Chronic Assessment and plan: Currently remains in sinus rhythm. Continue metoprolol as prescribed in the senior care. Continue apixaban at renally adjusted doses (13) Protein-calorie malnutrition, mild: Status: Acute Assessment and plan: Patient's had chronic protein calorie malnutrition resulting in a low albumin and protein stores. He has been receiving high- protein shakes between meals. I will ask for a nutritional consult. (14) History of DVT (deep vein thrombosis): Status: Chronic Assessment and plan: Patient has a chronic DVT in his left femoral vein down to the popliteal vein. Patient has an IVC filter in place and is chronically on apixaban. We will continue the current treatment as there is no fresh DVT in spite of his elevated d-dimer. (15) Heart failure with preserved ejection fraction: Status: Acute Assessment and plan: Last echo was performed August 02, 2019 and demonstrated normal left ventricular size and function with an ejection fraction of 50 to 55% however he has moderate concentric LVH. Right ventricle was not well visualized and therefore systolic function could not be assessed. He has no hemodynamically significant valvular lesions. IV fluids have been discontinued and he will get one time dose of oral lasix this afternoon. Qualifiers: Heart failure chronicity: chronic Qualified Code(s): I50.32 - Chronic diastolic (congestive) heart failure Subjective Subjective Interval history since last seen: Patient is doing markedly better today. He never did spike a fever overnight. His vital signs are stable. White blood cell count came down overnight with no antibiotics. CBC demonstrates a WBC of 9000 and a hemoglobin of 10.9 g. His COVID PCR test was negative. HE has been much more alert and animated today and feels better. Wound care nurse has seen the patient and made recommendations pending surgical evaluation of his chronic sacral decubitus and podiatric consultation on his diabetic foot wound. Of note, the wound care nurse noted a metallic appearing object in the base of his sacral decubitus wound that appeared to be a surgical staple. I have delayed his transfer back to the [facility] pending consultations w/ surgery and podiatry regarding his respective wounds. Exam Narrative Exam Narrative: Obese male who is much more animated today and alert and desiring his diet to be advanced. I explained to him he needs to remain on a calorie restricted diabetic low fiber low residue diet in order to treat his gastroparesis. HEENT shows improvement in his mucous membranes are moist. Lungs are clear to auscultation. Heart is regular rate and rhythm. Abdomen soft nontender obese normal active bowel sounds no guarding. Extremities with 1 to 2+ edema of his feet and legs; left tibial wound appears to be opening up. Mepilex was applied by nursing. Objective Objective Clinical Data: Abnormal lab results 09/22/19 09/23/19 09/23/19 Range/Units 18:40 06:20 06:20 Hgb 10.9 L (13.5-17.5) g/dL Hct 36.2 L (40.0-50.0) % MCH 24.8 L (27.0-33.0) pg MCHC 30.1 L (32.0-36.0) % RDW 17.4 H (11.8-14.1) % Absolute Neutrophils 8.02 H (1.2-6.7) 10^3/uL Absolute Lymphocytes 0.71 L (1.2-3.4) 10^3/uL Potassium 5.4 H (3.5-5.1) mmol/L BUN 42 H (7-18) mg/dL Creatinine 2.06 H (0.70-1.30) mg/dL Glucose 318 H D (74-106) mg/dL Urine Protein 100 H (Negative) mg/dL Urine Blood Large H (Negative) Urine RBC 20-50 H (0-2) HPF Vital Signs Temperature 36.2 C L 09/23/19 09:17 Temperature Source Tympanic 09/23/19 09:17 Pulse 74 09/23/19 09:17 Pulse Rhythm Regular 09/23/19 05:19 Pulse 59 L 09/22/19 13:35 Respiratory Rate 18 09/23/19 09:17 Respiratory Effort Non-Labored 09/23/19 05:19 Respiratory Depth Normal 09/23/19 05:19 Respiratory Pattern Normal 09/23/19 05:19 Blood Pressure 168/84 H 09/23/19 09:17 Blood Pressure Mean 78 09/22/19 13:35 Blood Pressure Position Sitting 09/22/19 10:12 Pulse Oximetry 97 09/23/19 09:17 Oxygen Delivery Method Nasal Cannula 09/23/19 09:17 Oxygen Flow Rate 2 09/23/19 09:17 Pain Level 3 09/23/19 09:17 Comment 09/23/19 09:17 Intake & Output 09/22/19 09/23/19 09/23/19 23:59 11:59 23:59 Intake Total 1040 / 1040 1417.833 / 2158.750 740.917 / 2158.750 Output Total 750 / 750 1550 / 1550 Balance 290 / 290 -132.167 / 608.750 740.917 / 608.750 Weight 116.36 kg 117.2 kg Intake: IV 937.833 / 1678.750 740.917 / 1678.750 Oral 1020 / 1020 480 / 480 Output: Urine 300 / 300 1100 / 1100 Stool 450 / 450 450 / 450 Other: Urine Color Yellow Yellow Urine Appearance Clear Clear Urine Odor None Comment from d/c ruiz ruiz Stool Characteristics Liquid Brown Laboratory Results WBC 9.14 10^3/uL (4.4-10.8) D 09/23/19 06:20 RBC 4.39 10^6/uL (4.36-5.78) 09/23/19 06:20 Hgb 10.9 g/dL (13.5-17.5) L 09/23/19 06:20 Hct 36.2 % (40.0-50.0) L 09/23/19 06:20 MCV 82.5 fL (80-95) D 09/23/19 06:20 MCH 24.8 pg (27.0-33.0) L 09/23/19 06:20 MCHC 30.1 % (32.0-36.0) L 09/23/19 06:20 RDW 17.4 % (11.8-14.1) H 09/23/19 06:20 Plt Count 184 10^3/uL (130-400) 09/23/19 06:20 MPV 10.0 fL (8.0-11.0) 09/23/19 06:20 Immature Gran % 1.4 09/23/19 06:20 Neutrophils % 87.8 09/23/19 06:20 Lymphocytes % 7.8 09/23/19 06:20 Monocytes % 2.8 09/23/19 06:20 Eosinophils % 0.0 09/23/19 06: Basophils % 0.2 09/23/19 06:20 Absolute Neutrophils 8.02 10^3/uL (1.2-6.7) H 09/23/19 06:20 Absolute Lymphocytes 0.71 10^3/uL (1.2-3.4) L 09/23/19 06:20 Absolute Monocytes 0.26 10^3/uL (0.1-0.8) 09/23/19 06:20 Absolute Eosinophils 0.00 10^3/uL (0.0-0.7) 09/23/19 06:20 Absolute Basophils 0.02 10^3/uL (0.0-0.2) 09/23/19 06:20 D-Dimer 1984 ng/mlFEU (<500) H 09/22/19 10:30 VBG pH 7.24 (7.35-7.45) L 09/22/19 10:30 VBG pCO2 71 mm/Hg (34-47) H* 07/29/20 10:30 VBG pO2 59 mm/Hg (28-44) H 09/22/19 10:30 VBG HCO3 30 mmol/L (22-28) H 09/22/19 10:30 VBG Total CO2 29 mmol/L (22-29) 09/22/19 10:30 VBG O2 Saturation 90 % (70-80) H 09/22/19 10:30 VBG Base Excess 2.6 mmol/L (-3-3) 09/22/19 10:30 Sodium 140 mmol/L (136-145) 09/23/19 06:20 Potassium 5.4 mmol/L (3.5-5.1) H 09/23/19 06:20 Chloride 107 mmol/L (98-107) 09/23/19 06:20 Carbon Dioxide 28.1 mmol/L (21.0-32.0) 09/23/19 06:20 Anion Gap 4.9 mmol/L (3-11) 09/23/19 06:20 BUN 42 mg/dL (7-18) H 09/23/19 06:20 Creatinine 2.06 mg/dL (0.70-1.30) H 09/23/19 06:20 Estimated GFR/1.73 m2 33.10 (mL/min/1.73m2) 09/23/19 06:20 Glucose 318 mg/dL (74-106) H D 09/23/19 06:20 Lactate 1.0 mmol/L (0.6-1.4) 09/22/19 10:30 Calcium 8.7 mg/dL (8.5-10.1) 09/23/19 06:20 Magnesium 1.9 mg/dL (1.8-2.4) 09/23/19 06:20 Total Bilirubin 0.8 mg/dL (0.2-1.0) 09/22/19 10:30 AST 20 U/L (15-37) 09/22/19 10:30 ALT 20 U/L (16-63) 09/22/19 10:30 Alkaline Phosphatase 75 U/L (46-116) 09/22/19 10:30 Troponin I < 0.05 ng/mL (<0.06) 09/22/19 13:31 NT-Pro-B Natriuret Pep 955 pg/mL (<300) H 09/22/19 10:30 Total Protein 5.6 g/dL (6.4-8.2) L 09/22/19 10:30 Albumin 2.6 g/dL (3.4-5.0) L 09/22/19 10:30 Procalcitonin 1.6 ng/mL 09/22/19 10:30 TSH 0.91 uIU/mL (0.36-3.74) 09/22/19 10:30 Urine Color Yellow (Yellow) 09/22/19 18:40 Urine Clarity Sl cloudy (Clear) 09/22/19 18:40 Urine pH 6.0 (5-8) 09/22/19 18:40 Ur Specific [place] 1.015 (1.005-1.025) 09/22/19 18:40 Urine Protein 100 mg/dL (Negative) H 09/22/19 18:40 Urine Ketones Negative mg/dL (Negative) 09/22/19 18:40 Urine Blood Large (Negative) H 09/22/19 18:40 Urine Nitrite Negative (Negative) 09/22/19 18:40 Urine Bilirubin Negative (Negative) 09/22/19 18:40 Urine Urobilinogen 0.2 EU/dL (Up TO 0.2) 09/22/19 18:40 Ur Leukocyte Esterase Negative (Negative) 09/22/19 18:40 Urine RBC 20-50 HPF (0-2) H 09/22/19 18:40 Urine WBC 0-2 HPF (0-5) 09/22/19 18:40 Ur Epithelial Cells Rare HPF (Negative) 09/22/19 18:40 Urine Crystals Negative HPF (Negative) 09/22/19 18:40 Urine Bacteria Negative HPF (Negative) 09/22/19 18:40 Urine Casts Negative LPF (Negative) 09/22/19 18:40 Urine Mucus Negative (Negative) 09/22/19 18:40 Urine Other Few transitional (Negative) 09/22/19 11:20 Ur Culture Indicated? No 09/22/19 18:40 Urine Glucose Negative mg/dL (Negative) 09/22/19 18:40 COVID-19 PCR Cancelled 09/22/19 11:16 Nasopharyn COVID-19 PCR Cancelled 09/22/19 11:16 Ref Test Perform Site Cancelled 09/22/19 11:16
[2019-09-23 14:22] VITALS: O2SAT 97
[2019-09-23 14:45] LABS: COVID-19 RT-PCR UVMMC Result Negative (Negative)
--- NOTE | 2019-09-23 15:12 | PHA.REVIEW ---
Pharmacy Admission Review - Admission Clinical Review (Last Reviewed 09/22/19 @ 11:07 by Ashanti Hayes MD) Diabetic ulcer of left foot associated with diabetes mellitus due to underlying condition (Acute) Heart failure with preserved ejection fraction (Acute) Diabetic gastroparesis (Acute) Protein-calorie malnutrition, mild (Acute) Decubitus ulcer of sacral region, stage 4 (Acute) lisinopril Allergy (Unverified 09/22/19 10:06) Weight 117.2 kg - Renal Dosing Renal Dosing: BUN 42 mg/dL (7-18) H 09/23/19 06:20 Creatinine 2.06 mg/dL (0.70-1.30) H 09/23/19 06:20 Medications needing adjustments: N/A (Need height in order to calculate CrCl) - Anticoagulation Anticoagulation: Hgb 10.9 g/dL (13.5-17.5) L 09/23/19 06:20 Hct 36.2 % (40.0-50.0) L 09/23/19 06:20 Plt Count 184 10^3/uL (130-400) 09/23/19 06:20 Creatinine 2.06 mg/dL (0.70-1.30) H 09/23/19 06:20 DVT Prohphylaxis: N/A Therapeutic Anticoagulation: Reviewed Medications: Apixaban - Opiate Usage Evaluate Pain Scale/Pains Meds: Reviewed (Oxycodone) Scheduled Bowel Reg ordered if on Opiates?: No (PRN docusate and Miralax) - Relevant Labs Sodium 140 mmol/L (136-145) 09/23/19 06:20 Potassium 5.4 mmol/L (3.5-5.1) H 09/23/19 06:20 Chloride 107 mmol/L (98-107) 09/23/19 06:20 Magnesium 1.9 mg/dL (1.8-2.4) 09/23/19 06:20 Electrolytes, C-Reactive P, ESR: Reviewed (K 5.4, BUN 42) - DM Control DM Control: Glucose 318 mg/dL (74-106) H D 09/23/19 06:20 Finger Stick Blood Glucose 311 Finger Stick Blood Glucose 311 Finger Stick Blood Glucose 311 Finger Stick Blood Glucose 318 Finger Stick Blood Glucose 318 Insulin Dosing: Reviewed (A1c 7.9% as of September 13, 2019. Glucose was 318 this morning, currently on glargine and aspart. Ther was some confusion about glargine dosing, had order for 50 units HS. Home med list says 50 units qAM and 5 units qHS. MD aware, dosing was switched to 50 units qAm and 15 units qHS) - Heart Failure/OR Heart Failure/OR: Troponin I < 0.05 ng/mL (<0.06) 09/22/19 13:31 NT-Pro-B Natriuret Pep 955 pg/mL (<300) H 09/22/19 10:30 EF%, ARYA's, B-Blockers, Diuretics: N/A - BP Control BP Control: Blood Pressure 168/84 Blood Pressure 145/77 If elevated: Reviewed (BP 168/84. Has been consistently elevated all morning and yesterday) - Qtc Review If Elevated: Reviewed (QTc 422) - IV to PO Switch IV Medications: Reviewed (IV hydrocortisone) - Home Meds Home Med List reviewed: Reviewed (Acidophilus, centrum, furosemide (on hold per MD, patient needs IV fluids and unsure about CHF status), melatonin, nystatin, prednisone (currently has order for IV hydrocortisone, MD states patient is adrenally supressed due to prednisone and wants to taper to 20mg daily)) - Current meds Current Medication Order Review: Reviewed (Lantus dosing was corrected, increased bedtime dosing to 15 units compared to at home dose of 5 units) - Comments Comments/Follow Ups: Monitor K, BUN and any med changes (addition of abx for possible UTI, changes to lantus dosing, DC of IV fluids was mentioned in morning meeting due to edema). Hydrocortisone currently being used to rapidly taper off of prednisone, MD hopes to get patient back to a 20mg qd dose of prednisone.
[2019-09-23 15:20] VITALS: BP 134/69; PULSE 57; RESP 19; TEMP 37; O2SAT 98
--- NOTE | 2019-09-23 15:28 | W.INDIABCONS ---
Date of service: 09/23/19 Time of Service: 15:00 Diabetes Inpatient Consult DESCRIPTION/ASSESSMENT: Brendan returns r/t hx SBO w/ DM gastroperesis. Noted: Patient has poor hx self care. On CCHO,Soft/ bite sized/ low fat/ low residue diet w/ thin lx. He asked today when he could get some good food. He requested potatoes, Nepali fries and some other high CHO foods. He has been tolerating the current diet order and intake is > 75% at meals. Noted: sacral wound ( stage 4), and L foot / L leg wound, UTI. On Fe to help w/ anemia. On MVI, B complex to help w/ micro-nutrient needs. Insulin regimen in place. INTERVENTION: Recommend : Active liquid Protein supplement 30 ml TID to help w/ wound healing. Provides 60g/pro/day. Recommend: Zn x 14 days per MD approval. Recommend Glucerna 237ml BID @ 10a + 2p. Enc adequate fluids to help w/ dehydration. Noted: hx edema. Explained risks and benefits of diet compliance r/t DM, CKD PLAN: RD will F/U with MD and patient to confirm amount of supplements consumed. Time Spent in Nutritional Counseling and Treatment: 15 minutes
--- NOTE | 2019-09-23 15:45 | WOUNDCARE ---
wounds assessed by Wound nurse who is also Pt's primary nurse, no official consult placed by MD, podiatry and surgical consulted for wounds. Dressing recommendations made, photos and measurements taken.
[2019-09-23] MEDS: Furosemide 40 MG TAB PO (16:09)
--- NOTE | 2019-09-23 18:34 | W.PODCONSULT ---
Date of service: 09/23/19 Time of Service: 18:35 History of Present Illness History of Present Illness Chief Complaint: Diabetic ulceration chronic left foot Narrative: Avery a 59-year-old white male, well-known to me from multiple consultations and visits within the office, for ongoing management of a non-healing chronic diabetic wound affecting his left foot. Brendan did receive a epi-fix 18 mm graft on his last admission which was approximately 2-1/2 to 3 weeks ago. Since he has been at the [facility] he has been receiving collagen dressings to the wound and I been asked to reassess and manage this chronic ulcer. As usual, Brendan has no complaints of pain in his left foot. FOR[facility]LY [facility] Medical History Acromegaly (Chronic) Acute on chronic kidney failure (Resolved) Adrenal insufficiency (Chronic) Ambulatory dysfunction (Chronic) Anemia (Chronic Unknown) Atrial flutter, paroxysmal (Chronic) Back pain (Chronic 06/21/13) CAD (coronary artery disease) (Chronic) Cardiopulmonary arrest with successful resuscitation (Resolved) Chronic anxiety (Chronic) Chronic bipolar disorder (Chronic) a. With history of psychosis. Chronic cholecystitis (Chronic) Chronic insomnia (Chronic) Chronic iron deficiency anemia (Acute) Chronic pain (Chronic) On both Methadone and Fentanyl as well as Ultram and Naproxen. CKD (chronic kidney disease) (Chronic) Decubitus ulcer of sacral region, stage 4 (Acute) Decubitus ulcer, stage 4 with infection (Resolved) Diabetes mellitus (Chronic) Diabetic gastroparesis (Acute) Diabetic ulcer of left foot associated with diabetes mellitus due to underlying condition (Acute) Diabetic ulcer of toe associated with diabetes mellitus due to underlying condition, with bone involvement without evidence of necrosis (Inactive) 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 (Resolved) DVT (deep venous thrombosis) (Chronic) Dg April 2019. Has IVC filter placed 04/2019 Dyslipidemia (Chronic) Endocarditis due to Staphylococcus (Resolved) Heart failure with preserved ejection fraction (Acute) Hemorrhagic cystitis (Chronic) Hep C w/o coma, chronic (Chronic) History of DVT (deep vein thrombosis) (Chronic) Hyperkalemia (Resolved) Hypomagnesemia (Resolved) Hypothyroidism (Chronic) Hypoventilation associated with obesity syndrome (Chronic) Ileostomy in place (Acute) Impaired mobility and ADLs (Chronic) Inability to get out of bed (Chronic 06/21/13) Lactic acidosis (Resolved) MRSA bacteremia (Acute) Obesity (Chronic) a. Obesity though he has had significant weight loss since last seen. Obstructive sleep apnea (Chronic) Old non-ST elevation myocardial infarction (NSTEMI) (Acute) March 2019 Open wound of left lower extremity without complication (Acute) secondary to trauma and from anticoagulation 04/2019 Osteoarthritis of both knees (Chronic) Severe. a. [id number] bilateral knees. 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 2 diabetes mellitus (Resolved) Palliative care encounter (Chronic) DObbertin PEA (Pulseless electrical activity) (Acute) episode of bradycardic arrest/PEA. thought to be secondary to gram neg sepsis from acute sonny. 03/2019 Pedal edema (Chronic) Persistent vomiting in adult patient (Acute) Poor self care (Chronic 06/21/13) Poorly controlled type 2 diabetes mellitus with circulatory disorder (Chronic) Presence of IVC filter (Acute) Protein-calorie malnutrition, mild (Acute) Pulmonary hypertension (Chronic) Rheumatoid arthritis (Chronic) Sepsis (Resolved) Septic arthritis of elbow, right (Inactive) Toxic metabolic encephalopathy (Resolved) Ulcer of left lower leg (Chronic) this is healed and resolved. no longer requires dressing Ulcerative colitis (Chronic) UTI (urinary tract infection) (Resolved) UTI (urinary tract infection) due to Enterococcus (Resolved) Surgical History Arthroplasty of knee (Resolved 03/18/12) irrigation and lavage right Fracture, Open Treatment (Resolved) 06/06/17-[facility] [place] S/P ORIF RIGHT DISTAL HUMERUS FRACTURE History of insertion of T-tube into biliary tract (Chronic) S/P colectomy (Chronic) S/P proctocolectomy (Acute) Social History Smoking/Tobacco Use Status: Former Tobacco Use Alcohol Intake: former Drug use: Rarely Substance use type: marijuana Housing: skilled nursing Do you feel safe at home: Yes Do you feel safe in your relationship?: Yes Additional Social history: Living at [facility] in [place] Exam Narrative Exam Narrative: Examination of the left lower extremity reveals a bandage over the distal aspect of his left negro where a contusion with a skin tear was previously noted and is covered with a silver type dressing. His toenails are chronically fungal currently adequately groomed. He has no peripheral edema. Skin is thin and atrophic there is no pedal hair. He has flexion contractures of his lesser toes semirigid in nature. He has a full-thickness ulceration under the left forefoot which measures 1.2 x 0.9 cm and is 4 mm deep. The base shows fibrin with spotty granulation tissue. The wall of the ulcer is somewhat dry. There is no chai purulence. There is no erythema or cellulitis and there is no active signs of infection. Impression: Chronic diabetic wound left forefoot as above Plan: I will debride the wound and apply his second epi-fix graft to the lesion. All questions were answered. Brendan is in agreements. Procedure note: Utilizing a 5 mm skin curette, the periphery of the wound base and braxton were debrided until good bleeding was appreciated. I did not encounter bony material. Bleeding was controlled with pressure. A 18 mm epi-fix graft was then inserted into the wound and covered by Adaptic, 4 x 4's, Kerlix roll, flexnet and Steven wrap. Dressings to remain intact for the next 5 to 7 days. Assuming that Brendan returns to the [facility]. The dressing can be removed next or Friday, cleanse gently with soap and water, and a collagen dressing covered by a Mepilex bordered dressing should be utilized every other day. Results Last Vital Signs Temp 37.0 C 09/23/19 15:20 Pulse 57 L 09/23/19 15:20 Resp 19 09/23/19 15:20 BP 134/69 09/23/19 15:20 Pulse Ox 98 09/23/19 15:20 Labs Result diagrams: 09/23/19 06:20 09/23/19 06:20 Labs: Laboratory Results - last 24 hr 09/22/19 09/22/19 09/22/19 11:16 11:16 18:40 WBC RBC Hgb Hct MCV MCH MCHC RDW Plt Count MPV Immature Gran % Neutrophils % Lymphocytes % Monocytes % Eosinophils % Basophils % Absolute Neutrophils Absolute Lymphocytes Absolute Monocytes Absolute Eosinophils Absolute Basophils Sodium Potassium Chloride Carbon Dioxide Anion Gap BUN Creatinine Estimated GFR/1.73 m2 Glucose Calcium Magnesium Urine Color Yellow Urine Clarity Sl cloudy Urine pH 6.0 Ur Specific Isabel 1.015 Urine Protein 100 H Urine Ketones Negative Urine Blood Large H Urine Nitrite Negative Urine Bilirubin Negative Urine Urobilinogen 0.2 Ur Leukocyte Esterase Negative Urine RBC 20-50 H Urine WBC 0-2 Ur Epithelial Cells Rare Urine Crystals Negative Urine Bacteria Negative Urine Casts Negative Urine Mucus Negative Ur Culture Indicated? No Urine Glucose Negative COVID-19 PCR Cancelled Negative Nasopharyn COVID-19 PCR Cancelled Not Applicable Ref Test Perform Site Cancelled [facility] lab 09/23/19 09/23/19 06:20 06:20 WBC 9.14 D RBC 4.39 Hgb 10.9 L Hct 36.2 L MCV 82.5 D MCH 24.8 L MCHC 30.1 L RDW 17.4 H Plt Count 184 MPV 10.0 Immature Gran % 1.4 Neutrophils % 87.8 Lymphocytes % 7.8 Monocytes % 2.8 Eosinophils % 0.0 Basophils % 0.2 Absolute Neutrophils 8.02 H Absolute Lymphocytes 0.71 L Absolute Monocytes 0.26 Absolute Eosinophils 0.00 Absolute Basophils 0.02 Sodium 140 Potassium 5.4 H Chloride 107 Carbon Dioxide 28.1 Anion Gap 4.9 BUN 42 H Creatinine 2.06 H Estimated GFR/1.73 m2 33.10 Glucose 318 H D Calcium 8.7 Magnesium 1.9 Urine Color Urine Clarity Urine pH Ur Specific Isabel Urine Protein Urine Ketones Urine Blood Urine Nitrite Urine Bilirubin Urine Urobilinogen Ur Leukocyte Esterase Urine RBC Urine WBC Ur Epithelial Cells Urine Crystals Urine Bacteria Urine Casts Urine Mucus Ur Culture Indicated? Urine Glucose COVID-19 PCR Nasopharyn COVID-19 PCR Ref Test Perform Site
--- NOTE | 2019-09-23 19:10 | DI.VRAD_ITS ---
PROCEDURE INFORMATION: Exam: [facility] Lung Ventilation and Perfusion Imaging Exam date and time: 09/23/2019 6:22 PM Age: 59 years old Clinical indication: Shortness of breath; Patient HX: Prior dvt history TECHNIQUE: Imaging protocol: Nuclear pulmonary ventilation with aerosol or gas was performed followed by perfusion. Views: Ventilation acquired with multiple projections. Perfusion acquired with multiple projections. Radiopharmaceutical: 1. 35 DTPA Aersol Tc-99m DTPA, Inhalation. 2. 4 mCi Tc-99m MAA, IV. COMPARISON: CR XR PORTABLE CHEST AP 09/22/2019 10:58 AM FINDINGS: Ventilation: There are large bilateral ventilation defects, fairly diffuse particularly involving the right upper and lower lobe and superior aspect of the left upper lobe. Perfusion: There is a small, matched defect in the lingular region. There is a small, matched defect in the right middle lobe region. There is mild elevation of the left hemidiaphragm. Other findings: There is gastric activity, possible free pertechnetate versus swallowed material. IMPRESSION: Low probability for pulmonary embolus. Please note there is significant underlying ventilatory abnormality. Consider reactive airway disease. Dictated and Authenticated by: Melva Garza MD. Ordering:[facility] Phillip Jackson MD
[2019-09-23 22:00] VITALS: BP 140/71; PULSE 55; RESP 18; TEMP 37; O2SAT 95
[2019-09-23] MEDS: Levothyroxine 25 MCG TAB 12.5 MCG PO (22:06)
[2019-09-23] MEDS: risperiDONE 1 MG TAB 1.5 MG PO (22:06)
[2019-09-23] MEDS: Insulin Glargine 300 UNITS/3 ML PEN 15 UNITS SC (22:07)
[2019-09-23] MEDS: Melatonin 3 MG TAB 6 MG PO (23:14)
[2019-09-24] MEDS: Hydrocortisone SOD SUC. 100 MG VIAL 50 MG IVP (04:48)
[2019-09-24 04:51] VITALS: BP 135/69; PULSE 45; RESP 18; TEMP 37.1; O2SAT 99
[2019-09-24 07:19] LABS: Anion Gap 4.9 mmol/L (3-11); BUN 48 mg/dL (7-18); CO2 27.1 mmol/L (21.0-32.0); CREATININE 2.88 mg/dL (0.70-1.30); Calcium 8.5 mg/dL (8.5-10.1); Chloride 106 mmol/L (98-107); Estimated GFR 22.49 (mL/min/1.73m2); Glucose 368 mg/dL (74-106); Potassium 5.8 mmol/L (3.5-5.1); Sodium 138 mmol/L (136-145)
[2019-09-24] MEDS: Insulin Glargine 300 UNITS/3 ML PEN 50 UNITS SC (07:46)
[2019-09-24] MEDS: Lactobacillus Acidophilus CAP 1 CAP PO (07:46)
[2019-09-24] MEDS: cloNIDine 0.1 MG TAB PO (07:46)
[2019-09-24] MEDS: Cyanocobalamin 500 MCG TAB 1000 MCG PO (07:46)
[2019-09-24] MEDS: Magnesium Chloride 64 MG TABCR PO (07:46)
[2019-09-24] MEDS: Gabapentin 100 MG CAP 300 MG PO (07:47)
[2019-09-24] MEDS: Venlafaxine 37.5 MG CAPCR 112.5 MG PO (07:47)
[2019-09-24] MEDS: Apixaban 2.5 MG TAB PO (07:47)
[2019-09-24] MEDS: Pantoprazole 40 MG TABCR PO (07:47)
[2019-09-24] MEDS: Ascorbic Acid 500 MG TAB PO (07:47)
[2019-09-24] MEDS: Multivitamin TAB 1 TAB PO (07:47)
[2019-09-24] MEDS: Cetirizine 10 MG TAB PO (07:47)
[2019-09-24] MEDS: Ferrous Sulfate 325 MG TAB PO (07:47)
[2019-09-24] MEDS: Sodium Bicarbonate 650 MG TAB PO (07:47)
[2019-09-24] MEDS: Vitamins B Comp w/C TAB 1 TAB PO (07:48)
[2019-09-24] MEDS: amLODIPine 5 MG TAB 10 MG PO (07:48)
[2019-09-24 07:54] VITALS: BP 149/82; PULSE 44; RESP 20; TEMP 35.8; O2SAT 100
[2019-09-24] MEDS: Insulin Aspart 300 UNITS/3 ML PEN SC ×4 (08:09→11:41)
[2019-09-24] MEDS: predniSONE 20 MG TAB 40 MG PO (09:20)
--- NOTE | 2019-09-24 12:44 | DSE_ITS ---
Date of service: 09/24/19 Time of Service: 12:44 DS: Diagnosis Discharge Diagnosis (1) Decubitus ulcer of sacral region, stage 4: Status: Chronic Asessment and Plan: Reapply wound vacuum upon return to the [facility]. Arrange follow-up with Dr. Lela Webb (2) Diabetic ulcer of left foot associated with diabetes mellitus due to underlying condition: Status: Chronic Asessment and Plan: Patient underwent debridement of his left forefoot diabetic wound. This was performed by Dr. Harris Ashford on September 23, 2019. An 18 mm epic fix graft was applied to the wound and she remained there for the next 7 days afterwards dressing can be removed and the wound can be gently wash with soap and water and a collagen dressing can be covered by a Mepilex border dressing to be changed every other day. Arrange follow-up with Dr. Harris Ashford. (3) Obstructive sleep apnea: Status: Chronic Asessment and Plan: Patient is to continue use of his trilogy whenever he is napping during the day or sleeping at night. Please confer with respiratory therapy regarding correct settings (4) Adrenal insufficiency: Status: Chronic Asessment and Plan: Patient has chronic adrenal insufficiency and is required stress dose corticosteroids whenever he has hospitalized for acute illness. He was treated during this admission with hydrocortisone 50 mg IV every 6 hours. He has been transitioned to prednisone 40 mg daily. Please taper slowly by 5 mg/week and consult with endocrinology regarding long-term management. (5) Diabetic gastroparesis: Status: Chronic Asessment and Plan: Continue current dose of EES with meals (6) Rheumatoid arthritis: Status: Chronic Asessment and Plan: Continue with treatment with prednisone. Consult with rheumatology regarding long-term management. (7) Chronic bipolar disorder: Status: Chronic Asessment and Plan: No change in his current medications. (8) Hypothyroidism: Status: Chronic Asessment and Plan: TSH was checked during this admission was found to be within normal limits at 0.91. Continue his current home dose of levothyroxine 12.5 mcg p.o. nightly (9) Hypertension: Status: Chronic Asessment and Plan: No changes were made in his home antihypertensive medications. He is to remain on amlodipine 10 mg daily along with clonidine 0.1 mg p.o. 3 times daily and metoprolol tartrate 25 mg twice daily (10) CKD (chronic kidney disease): Status: Chronic Asessment and Plan: Please repeat his BMP in 3 days to reassess his electrolytes and BUN/creatinine. You may need to continue holding his furosemide if his BUN/creatinine are not declining (11) Poorly controlled type 2 diabetes mellitus with circulatory disorder: Status: Chronic Asessment and Plan: No changes were made in his diabetic medications. (12) Atrial flutter, paroxysmal: Status: Chronic Asessment and Plan: No changes were made in his cardiac medications. He remains on apixaban at renally adjusted doses for both his PAF and his chronic DVT (13) Protein-calorie malnutrition, mild: Status: Chronic Asessment and Plan: Continue current protein supplementation. Consider addition of arginine to help with his wound healing. (14) History of DVT (deep vein thrombosis): Status: Chronic Asessment and Plan: No new DVTs or PEs were found. Continue current management with his present dose of apixaban (15) Heart failure with preserved ejection fraction: Status: Chronic Asessment and Plan: Continue current management with his diet and medications. Discharge Plan Disposition Patient Disposition: SNF (LEVEL 1) [facility] Condition: Good Discharge Details Chief Complaint: RespSymp Reason For Visit: FEVER, RESPIRATORY DISTRESS Admit Date/Time: 09/22/19 12:49 Admit Provider: Manuel Fisher Attending Provider: Manuel Fisher Primary Care Provider: Lou Maldonado ED Provider: [facility] Hospital Course: 59-year-old morbidly obese male with poorly controlled type 2 diabetes mellitus requiring insulin, chronic kidney disease, coronary artery disease, paroxysmal atrial fibrillation, JESSICA, rheumatoid arthritis, Crohn's disease status post proctocolectomy with ileostomy, chronic sacral decubitus ulcer presents to the emergency department with complaints of generalized malaise and fatigue and generalized pain all over. He was sent in from the [facility] where he resides in [facility] because of hypoxemia. For the patient's JESSICA and hypoventilation syndrome he has been on a trilogy device and apparently had been placed on it last night at an inappropriate setting and this morning he was noted to have an oxygen saturation 77% on 2 L. When EMS arrived they noted his oxygen saturation to be 100% on 2 L. In the emergency department his oxygen saturation was running 98 to 100% on 2 L/min per nasal cannula. He reportedly had a fever of 102 at the skilled nursing but on arrival to emergency department he is afebrile. Patient had completed several weeks of IV vancomycin for infected sacral ulcer and just came off of a 7-day course of ertapenem for an E. coli UTI. That was completed 4 days ago. Diagnostic work-up included a CBC on admission that demonstrated a mildly elevated white count of 14,000 and a stable chronic anemia with hemoglobin 11 g. Overnight his white cell count came down to 9000 without any antibiotic treatment. CMP on admission shows a chronically elevated BUN and creatinine of 36 and 1.96. Upon discharge his BUN and creatinine were increased to 48 and 2.88 however the patient had received 40 of Lasix the day prior to discharge. Blood cultures and urine cultures were obtained. His Ruiz catheter was changed and a urinalysis demonstrated 100 mg/dL large amount of blood with 20-50 red cells but was negative for nitrites or leukocyte Estrace and negative for bacter ia. Admission troponin levels were negative x2 sets his procalcitonin level was 1.6 on admission as blood lactate was normal at 1.0. D-dimer was checked on admission and found to be elevated at 1984 however the patient has a known chronic left DVT. Imaging included a chest x-ray on admission that suggested cardiomegaly and questionable mild CHF. Venous duplex scan was done of his legs that was negative on the right but showed an old thrombus extending from his left proximal femoral vein through his popliteal vein. On the day of discharge a ventilation/perfusion scan was performed and was read as low probability for PE. Patient was admitted for observation while awaiting blood and urine cultures. He never spiked a fever throughout his hospital stay as WBC count normalized without any antibiotic treatment. Patient was placed on stress dose hydrocortisone at 50 mg IV every 6 hours and patient improved overnight. On admission he appeared to be lethargic and not feeling well and complained of generalized aching but otherwise had no specific signs or symptoms of infection. It was elected not to give him antibiotics and as noted above his cultures came back no growth. Consultations were obtained with surgery and with podiatry regarding his wounds. Dr. Ashford saw him for podiatric care of his chronic diabetic foot ulcer of his left forefoot and he debrided the wound and applied an epi-fix graft to the lesion. See Dr. rg's consult note for details. Indicated the dressing should remain intact for the next 5 to 7 days and in 1 week dressing can be removed and the wound can be gently cleaned with soap and water and a collagen dressing with Mepilex can be applied every other day. Dr. Shelli Newman from surgical service evaluated the patient on the day of discharge looking at his sacral decubitus and indicated the wound looked good and did visualize to clips in the wound had previously been placed for hemostasis. She felt they should be left alone that they will probably slough off on their own. She recommend continued packing with wet-to-dry dressings but that the wound vacuum can be replaced upon return to the [facility]. Upon admission the patient was started on IV fluids as he was not taking adequate oral intake. However nursing staff felt that the next day he looked to be volume overloaded with increased edema around his periorbital facial region as well as his hands and his feet. He was given a one-time dose of furosemide 40 mg with a subsequent BMP on the day of discharge showing an increased BUN and creatinine. At this point I think it is furosemide dose can be returned to his 30 mg dose every third or fourth day. Do not feel he needs daily furosemide. Follow-up BMP has been ordered to be performed on September 26. I feel that the patient's presenting symptoms of fever generalized achiness malaise and poor oral intake was related to his chronic adrenal insufficiency that he will probably need a slower taper of his prednisone. I have put him on 40 mg of prednisone daily and would recommend that it be tapered down by 5 mg every week. I would also recommend consultation with an field liability generalist to manage his chronic adrenal insufficiency. With respect to his hypoxemia I think this was due to mistaken settings on his trilogy. I would recommend that the staff at the [facility] consult with respiratory therapy to ensure that his trilogy settings are corrected since it appears he has different settings during the day versus nighttime. Home Meds and New Rx's Prescriptions: Continued cyanocobalamin (vitamin B-12) 1,000 mcg Tablet 1,000 mcg PO DAILY RF: 0 ferrous sulfate 325 mg (65 mg iron) Tablet 325 mg PO BID Qty: 0 RF: 0 ascorbic acid (vitamin C) [Vitamin C] 250 mg Tablet 250 mg PO BID RF: 0 Centrum Complete 18-400 mg-mcg Tablet 1 tab PO DAILY RF: 0 pantoprazole 40 mg Tablet,Delayed Release (Dr/Ec) 40 mg PO DAILY Qty: 60 RF: 0 melatonin 3 mg Tablet Extended Release 6 mg PO HS Qty: 30 RF: 0 calcium carbonate-vitamin D3 [Calcium 500 + D] 500 mg(1,250mg) -400 unit Tablet 1 tab PO BID RF: 0 acetaminophen [Tylenol] 325 mg tablet 650 mg PO Q8H PRNRF: 0 gabapentin 100 mg capsule 300 mg PO TID RF: 0 risperidone [Risperdal] 2 mg tablet 1.5 mg PO HS RF: 0 vitamin B complex 100 2-herbs 100 mg Tablet 1 tab PO DAILY RF: 0 Combivent Respimat 20-100 mcg/actuation Mist 1 puff INHALATION Q6H PRNRF: 0 acidophilus-pectin, citrus 25 million cell -100 mg tablet 1 cap PO DAILY RF: 0 insulin lispro [Humalog KwikPen Insulin] 100 unit/mL Insulin Pen 0 unit SUBCUT AC RF: 0 nystatin 100,000 unit/gram Powder 0 g topical BID Qty: 0 RF: 0 sodium bicarbonate 650 mg Tablet 650 mg PO BID Qty: 90 RF: 0 potassium bicarb-citric acid 20 mEq tablet, effervescent 20 meq PO DAILY Qty: 30 RF: 0 erythromycin ethylsuccinate 200 mg/5 mL Suspension For Reconstitution 100 mg PO AC Qty: 27 RF: 0 oxycodone 5 mg Tablet 5 mg PO Q4H PRN PRNQty: 20 RF: 0 ertapenem 1 gram recon soln 1 gm IM Q24H Qty: 5 RF: 0 terazosin 2 mg Capsule 4 mg PO BID Qty: 0 RF: 0 magnesium chloride [Mag 64] 64 mg Tablet,Delayed Release (Dr/Ec) 64 mg PO BID Qty: 0 RF: 0 venlafaxine [Effexor XR] 37.5 mg Capsule,Extended Release 24hr 112.5 mg PO DAILY RF: 0 Zyrtec 10 mg Capsule 10 mg PO DAILY RF: 0 amlodipine 5 mg tablet 10 mg PO DAILY RF: 0 levothyroxine 25 mcg tablet 12.5 mcg PO HS RF: 0 Lantus Solostar U-100 Insulin 100 unit/mL (3 mL) insulin pen 50 unit subcut QAM RF: 0 insulin aspart U-100 100 unit/mL (3 mL) insulin pen 10 unit SC AC Qty: 15 RF: 0 metoprolol tartrate 25 mg Tablet 25 mg PO BID RF: 0 clonidine HCl [Catapres] 0.1 mg tablet 0.1 mg PO TID Qty: 0 RF: 0 Eliquis 5 mg Tablet 2.5 mg PO BID Qty: 60 RF: 0 CertaVite Senior-Antioxidant 0.4-300-250 mg-mcg-mcg Tablet 1 tab PO QAM RF: 0 Duoneb 3 ml inhalation PRN PRNRF: 0 Lantus Solostar U-100 Insulin 100 unit/mL (3 mL) insulin pen 5 unit SUBCUT HS RF: 0 furosemide [Lasix] 40 mg tablet 30 mg PO .Q 72 H RF: 0 doxycycline hyclate 100 mg capsule 100 mg PO DAILY@1000 RF: 0 Changed prednisone 10 mg tablet 40 mg PO DAILY Qty: 0 RF: 0 Discharge Instructions Instructions: [place] Disease (DC) Additional Instructions: Please consult with respiratory therapy regarding his correct trilogy settings. Get a repeat BMP in 3 days. Stand Alone Forms: Nursing Discharge Form Activity:: Activity as Tolerated Equipment/Supplies:: No Equipment Needed Diet:: Carb Counting Discharge Orders Discharge Orders: Discharge Order (Routine); Ordered 09/24/19 Ordered By: Maneul Fishre Other Ambulatory Orders: Basic Metabolic Panel (Routine) Timeframe: 3 Days Facility: [facility] - Location: Laboratory Outpatient Ordered By: Manuel Fisher DS: Summary Status at Discharge Functional status at discharge: wheelchair bound Overall status at discharge: patient is back to baseline Mental Status: mental status grossly normal Speech and Movement: speech and movement normal Mood: congruent mood Affect: normal affect Time Spent with Patient providing and/or coordinating discharge services: Greater than 30 minutes Exam Narrative Exam Narrative: 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 He sitting up at the bedside eating his lunch and joking. He is alert and oriented and in no distress. He feels much better and denies any pain or dyspnea or nausea or vomiting. Lungs are clear to auscultation Heart is regular rate and rhythm Abdomen is obese soft and nontender no guarding or rebound tenderness. Ruiz catheter is draining clear yellow urine Ileostomy is draining light brown liquid stool Psych Mental Status: mental status grossly normal Speech and Movement: speech and movement normal Mood: congruent mood Affect: normal affect DS: Data Vitals/I&O Vitals and I&O: Vital Signs Temperature 35.8 C L 09/24/19 07:54 Temperature Source Temporal Artery Scan 09/24/19 07:54 Pulse 44 L 09/24/19 07:54 Pulse Rhythm Regular 09/24/19 07:50 Pulse 59 L 09/22/19 13:35 Respiratory Rate 20 09/24/19 07:54 Respiratory Effort 09/24/19 07:50 Respiratory Depth Normal 09/24/19 07:50 Respiratory Pattern Normal 09/24/19 07:50 Blood Pressure 149/82 H 09/24/19 07:54 Blood Pressure Mean 78 09/22/19 13:35 Blood Pressure Position Sitting 09/22/19 10:12 Pulse Oximetry 100 09/24/19 07:54 Oxygen Delivery Method Cpap 09/24/19 07:54 Oxygen Flow Rate 1 09/24/19 09:38 Pain Level 0 09/24/19 07:54 Comment 09/24/19 04:51 Intake & Output 09/23/19 09/24/19 09/24/19 23:59 11:59 23:59 Intake Total 1900.917 / 3318.750 480 / 480 Output Total 1975 / 3525 1000 / 1000 Balance -74.083 / -206.250 -520 / -520 Weight 114.3 kg Intake: IV 740.917 / 1678.750 Oral 1160 / 1640 480 / 480 Output: Urine 1000 / 2100 500 / 500 Stool 975 / 1425 500 / 500 Other: Urine Color Yellow Yellow Urine Appearance Clear Clear Urine Odor None Comment ruiz output Stool Characteristics Soft Soft Liquid Brown Brown Data Completed and Pending Labs on day of discharge: Labs from last 24 hours 09/24/19 09/22/19 09/22/19 06:45 11:16 11:16 Sodium 138 Potassium 5.8 H Chloride 106 Carbon Dioxide 27.1 Anion Gap 4.9 BUN 48 H Creatinine 2.88 H D Estimated GFR/1.73 m2 22.49 Glucose 368 H Calcium 8.5 COVID-19 PCR Negative Cancelled Nasopharyn COVID-19 PCR Not Applicable Cancelled Ref Test Perform Site [facility] lab Cancelled Preliminary micro results at discharge 09/22/19 10:23 Blood Culture - Preliminary Blood NO GROWTH 24 HOURS 09/22/19 10:30 Blood Culture - Preliminary Blood NO GROWTH 24 HOURS [facility] Medical History Acromegaly (Chronic) Acute on chronic kidney failure (Resolved) Adrenal insufficiency (Chronic) Ambulatory dysfunction (Chronic) Anemia (Chronic Unknown) Atrial flutter, paroxysmal (Chronic) Back pain (Chronic 06/21/13) CAD (coronary artery disease) (Chronic) Cardiopulmonary arrest with successful resuscitation (Resolved) Chronic anxiety (Chronic) Chronic bipolar disorder (Chronic) a. With history of psychosis. Chronic cholecystitis (Chronic) Chronic insomnia (Chronic) Chronic iron deficiency anemia (Acute) Chronic pain (Chronic) On both Methadone and Fentanyl as well as Ultram and Naproxen. CKD (chronic kidney disease) (Chronic) Decubitus ulcer of sacral region, stage 4 (Acute) Decubitus ulcer, stage 4 with infection (Resolved) Diabetes mellitus (Chronic) Diabetic gastroparesis (Acute) Diabetic ulcer of left foot associated with diabetes mellitus due to underlying condition (Acute) Diabetic ulcer of toe associated with diabetes mellitus due to underlying condition, with bone involvement without evidence of necrosis (Inactive) 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 (Resolved) DVT (deep venous thrombosis) (Chronic) Dg April 2019. Has IVC filter placed 04/2019 Dyslipidemia (Chronic) Endocarditis due to Staphylococcus (Resolved) Heart failure with preserved ejection fraction (Acute) Hemorrhagic cystitis (Chronic) Hep C w/o coma, chronic (Chronic) History of DVT (deep vein thrombosis) (Chronic) Hyperkalemia (Resolved) Hypomagnesemia (Resolved) Hypothyroidism (Chronic) Hypoventilation associated with obesity syndrome (Chronic) Ileostomy in place (Acute) Impaired mobility and ADLs (Chronic) Inability to get out of bed (Chronic 06/21/13) Lactic acidosis (Resolved) MRSA bacteremia (Acute) Obesity (Chronic) a. Obesity though he has had significant weight loss since last seen. Obstructive sleep apnea (Chronic) Old non-ST elevation myocardial infarction (NSTEMI) (Acute) March 2019 Open wound of left lower extremity without complication (Acute) secondary to trauma and from anticoagulation 04/2019 Osteoarthritis of both knees (Chronic) Severe. a. [id number] bilateral knees. 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 2 diabetes mellitus (Resolved) Palliative care encounter (Chronic) DObbertin PEA (Pulseless electrical activity) (Acute) episode of bradycardic arrest/PEA. thought to be secondary to gram neg sepsis from acute sonny. 03/2019 Pedal edema (Chronic) Persistent vomiting in adult patient (Acute) Poor self care (Chronic 06/21/13) Poorly controlled type 2 diabetes mellitus with circulatory disorder (Chronic) Presence of IVC filter (Acute) Protein-calorie malnutrition, mild (Acute) Pulmonary hypertension (Chronic) Rheumatoid arthritis (Chronic) Sepsis (Resolved) Septic arthritis of elbow, right (Inactive) Toxic metabolic encephalopathy (Resolved) Ulcer of left lower leg (Chronic) this is healed and resolved. no longer requires dressing Ulcerative colitis (Chronic) UTI (urinary tract infection) (Resolved) UTI (urinary tract infection) due to Enterococcus (Resolved) Surgical History Arthroplasty of knee (Resolved 03/18/12) irrigation and lavage right Fracture, Open Treatment (Resolved) 06/06/17[place] [place]P ORIF RIGHT DISTAL HUMERUS FRACTURE History of insertion of T-tube into biliary tract (Chronic) S/P colectomy (Chronic) S/P proctocolectomy (Acute) Social History Smoking/Tobacco Use Status: Former Tobacco Use Alcohol Intake: former Drug use: Rarely Substance use type: marijuana Housing: skilled nursing Do you feel safe at home: Yes Do you feel safe in your relationship?: Yes Additional Social history: Living at [facility] in [place]
--- NOTE | 2019-09-24 13:42 | CMDISCH_ITS ---
- If Service Date Differs Date of service: 09/24/19 Time of Service: 13:42 LACE Index Scoring Tool - Questions: Length of Stay (in days): 2 Acuity (Admit via E.D.?): Yes Comorbidities: Previous M.I., Diabetes w/o Complication, Congestive Heart Failure, Liver or Renal Disease E.D. Visits: 17 - Answers: Total Score: 14 Risk of Readmission: High Risk Care Management Discharge Reason for Hospitalization: Obstructive sleep apnea Discharge Plan: Brendan will return to the [facility] when medically stable. He will follow up with the providers and plan of care at the facility. Brendan will transport via ambulance through [facility] coordinated by CM. Patient/Family Education Needs: Review discharge instructions, discuss Ask Me Three.
--- NOTE | 2019-09-24 15:50 | CHAPLAIN ---
Brendan was in bed when I visited. He was a patient here a few weeks ago, and staff are very familiar with Brendan from frequent hospitalizations. He lives at the [facility]. Brendan said he came in this time because of something with his heart and his breathing. He said that his diet has been very restricted because of his kidneys and he doesn't get much food. He anticipates that he'll be discharged back to the [facility] today.
== END 2019-09-24 13:21 | disposition skilled nursing facility (03) ==
LOC: ER 13:09 → MS 13:47
PROVIDERS: Admitting Provider Internal Medicine; Emergency Provider Student in an Organized Health Care Education/Training Program; PCP Family Medicine; Visit Provider Internal Medicine
DX: E27.3 Drug-induced adrenocortical insufficiency; T38.0X5A Adverse effect of glucocorticoids and synthetic analogues, initial encounter; L89.154 Pressure ulcer of sacral region, stage 4; E66.01 Morbid (severe) obesity due to excess calories; E11.65 Type 2 diabetes mellitus with hyperglycemia; Z79.4 Long term (current) use of insulin; N18.9 Chronic kidney disease, unspecified; I25.10 Atherosclerotic heart disease of native coronary artery without angina pectoris; I48.0 Paroxysmal atrial fibrillation; E11.621 Type 2 diabetes mellitus with foot ulcer; G47.33 Obstructive sleep apnea (adult) (pediatric); M06.9 Rheumatoid arthritis, unspecified; E11.43 Type 2 diabetes mellitus with diabetic autonomic (poly)neuropathy; K31.84 Gastroparesis; E03.9 Hypothyroidism, unspecified; E11.22 Type 2 diabetes mellitus with diabetic chronic kidney disease; I48.92 Unspecified atrial flutter; E11.51 Type 2 diabetes mellitus with diabetic peripheral angiopathy without gangrene; E44.1 Mild protein-calorie malnutrition; I50.32 Chronic diastolic (congestive) heart failure; I13.0 Hypertensive heart and chronic kidney disease with heart failure and stage 1 through stage 4 chronic kidney disease, or unspecified chronic kidney disease; Z93.2 Ileostomy status; I82.512 Chronic embolism and thrombosis of left femoral vein; I82.532 Chronic embolism and thrombosis of left popliteal vein; L97.521 Non-pressure chronic ulcer of other part of left foot limited to breakdown of skin
CPT/HCPCS: 97597; 36415; 78582; 80048; 80053; 82805; 84145; 87040; 87081; 93005; 99220; 99226; 99239; 99285; U0003; 71045; 81003; 81015; 83605; 83735; 83880; 84443; 84484; 85025; 85379; 87086; 87324; 93010; 93970; 99217; G0378; J1720; J7512

== ENCOUNTER 2019-09-27 16:11 | Outpatient (REF) | payer MEDICARE, MEDICAID, SELFPAY ==
[2019-09-27 16:56] LABS: Anion Gap 5.8 mmol/L (3-11); BUN 44 mg/dL (7-18); CO2 29.2 mmol/L (21.0-32.0); CREATININE 1.89 mg/dL (0.70-1.30); Calcium 8.4 mg/dL (8.5-10.1); Chloride 106 mmol/L (98-107); Estimated GFR 36.56 (mL/min/1.73m2); Glucose 410 mg/dL (74-106); Potassium 5.2 mmol/L (3.5-5.1); Sodium 141 mmol/L (136-145)
== END 2019-09-27 16:31 ==
LOC: LBN 16:11
PROVIDERS: PCP Family Medicine; Visit Provider Family Medicine
DX: N18.9 Chronic kidney disease, unspecified (principal); E11.40 Type 2 diabetes mellitus with diabetic neuropathy, unspecified
CPT/HCPCS: 80048

== ENCOUNTER 2019-09-29 15:46 | Outpatient (REF) | payer MEDICARE, MEDICAID, SELFPAY ==
[2019-09-29 16:24] LABS: HCT 35.4 % (40.0-50.0); HGB 10.6 g/dL (13.5-17.5); MCH 24.7 pg (27.0-33.0); MCHC 29.9 % (32.0-36.0); MCV 82.3 fL (80-95); MPV 9.8 fL (8.0-11.0); Nucleated RBC 0 %; Platelet Count 220 10^3/uL (130-400); RDW 17.2 % (11.8-14.1); RDW-SD 51.9 fL; WBC 13.52 10^3/uL (4.4-10.8)
[2019-09-29 16:58] LABS: Absolute Lymphocyte Count 0.41 10^3/uL (1.2-3.4); Absolute Monocyte Count 0.54 10^3/uL (0.1-0.8); Absolute Neutrophil Count 12.57 10^3/uL (1.2-6.7)
[2019-09-29 16:59] LABS: Diff Comment Manual Differential
== END 2019-09-29 16:06 ==
LOC: NCHCN 15:46
PROVIDERS: PCP Family Medicine; Visit Provider Family Medicine
DX: L98.9 Disorder of the skin and subcutaneous tissue, unspecified (principal); R68.89 Other general symptoms and signs
CPT/HCPCS: 85025

== ENCOUNTER 2019-09-30 12:14 | Outpatient (REF) | payer MEDICARE, MEDICAID, SELFPAY ==
[2019-09-30 12:36] LABS: Abs Immature Grans 0.51 10^3/uL (0.0-0.06); HCT 36.3 % (40.0-50.0); HGB 10.8 g/dL (13.5-17.5); MCH 24.7 pg (27.0-33.0); MCHC 29.8 % (32.0-36.0); MCV 83.1 fL (80-95); MPV 9.3 fL (8.0-11.0); Nucleated RBC 0 %; Platelet Count 203 10^3/uL (130-400); RBC 4.37 10^6/uL (4.36-5.78); RDW 17.1 % (11.8-14.1); RDW-SD 51.8 fL; WBC 16.11 10^3/uL (4.4-10.8)
[2019-09-30 12:40] LABS: Anion Gap 4.9 mmol/L (3-11); BUN 43 mg/dL (7-18); CO2 31.1 mmol/L (21.0-32.0); CREATININE 1.73 mg/dL (0.70-1.30); Calcium 8.6 mg/dL (8.5-10.1); Chloride 105 mmol/L (98-107); Estimated GFR 40.49 (mL/min/1.73m2); Glucose 374 mg/dL (74-106); Potassium 4.8 mmol/L (3.5-5.1); Sodium 141 mmol/L (136-145)
[2019-09-30 12:52] LABS: Absolute Lymphocyte Count 0.32 10^3/uL (1.2-3.4); Absolute Monocyte Count 0.64 10^3/uL (0.1-0.8); Absolute Neutrophil Count 14.82 10^3/uL (1.2-6.7); Bands % 5
[2019-09-30 12:53] LABS: Anisocytosis 1+; Diff Comment Manual Differential; Metamyelocytes % 1; Myelocytes % 1
[2019-09-30 12:54] LABS: Basophilic Stippling Present; Hypochromasia 2+; Microcytosis 2+; Polychromasia Present
[2019-09-30 12:55] LABS: Poikilocytes 2+
[2019-09-30 13:12] LABS: ESR 11 mm/hr (1-20)
== END 2019-09-30 12:34 ==
LOC: LBN 12:14
PROVIDERS: PCP Family Medicine; Visit Provider Family Medicine
DX: L98.9 Disorder of the skin and subcutaneous tissue, unspecified (principal); R68.89 Other general symptoms and signs; L03.90 Cellulitis, unspecified
CPT/HCPCS: 80048; 85652; 85025

== ENCOUNTER 2019-10-01 12:55 | Outpatient (REF) | payer MEDICARE, MEDICAID, SELFPAY ==
[2019-10-01 13:16] LABS: Abs Immature Grans 0.35 10^3/uL (0.0-0.06); Absolute Basophil Count 0.03 10^3/uL (0.0-0.2); Absolute Eosinophil Count 0.06 10^3/uL (0.0-0.7); Absolute Lymphocyte Count 0.37 10^3/uL (1.2-3.4); Basophils % 0.2; Eosinophils % 0.4; HCT 36.5 % (40.0-50.0); HGB 10.8 g/dL (13.5-17.5); Immature Grans % 2.4; Lymphocytes % 2.6; MCH 24.8 pg (27.0-33.0); MCHC 29.6 % (32.0-36.0); MCV 83.9 fL (80-95); MPV 9.5 fL (8.0-11.0); Monocytes % 3.3; Neutrophils % 91.1; Nucleated RBC 0 %; Platelet Count 184 10^3/uL (130-400); RBC 4.35 10^6/uL (4.36-5.78); RDW 17.1 % (11.8-14.1); RDW-SD 52.2 fL; WBC 14.35 10^3/uL (4.4-10.8)
[2019-10-01 13:17] LABS: Absolute Monocyte Count 0.47 10^3/uL (0.1-0.8); Absolute Neutrophil Count 13.07 10^3/uL (1.2-6.7)
== END 2019-10-01 13:15 ==
LOC: LBN 12:55
PROVIDERS: PCP Family Medicine; Visit Provider Family Medicine
DX: R50.9 Fever, unspecified (principal); R68.89 Other general symptoms and signs; L98.9 Disorder of the skin and subcutaneous tissue, unspecified
CPT/HCPCS: 85025

== ENCOUNTER 2019-10-04 18:19 | Outpatient (REF) | payer MEDICARE, MEDICAID, SELFPAY ==
[2019-10-04 15:47] LABS: HCT 37.6 % (40.0-50.0); HGB 10.9 g/dL (13.5-17.5); MCH 24.7 pg (27.0-33.0); MCV 85.1 fL (80-95); MPV 9.8 fL (8.0-11.0); Nucleated RBC 0 %; Platelet Count 229 10^3/uL (130-400); RBC 4.42 10^6/uL (4.36-5.78); RDW 16.5 % (11.8-14.1); RDW-SD 51.3 fL; WBC 12.71 10^3/uL (4.4-10.8)
[2019-10-04 16:30] LABS: Absolute Lymphocyte Count 0.25 10^3/uL (1.2-3.4); Absolute Monocyte Count 0.13 10^3/uL (0.1-0.8); Absolute Neutrophil Count 11.82 10^3/uL (1.2-6.7); Metamyelocytes % 2; Myelocytes % 2
[2019-10-04 16:31] LABS: Diff Comment Manual Differential
[2019-10-04 16:32] LABS: Anisocytosis 1+; Hypochromasia 2+; Microcytosis 1+
[2019-10-04 16:33] LABS: Poikilocytes 2+
== END 2019-10-04 18:39 ==
LOC: LBN 18:19
PROVIDERS: PCP Family Medicine; Visit Provider Family Medicine
DX: D64.9 Anemia, unspecified (principal); L03.90 Cellulitis, unspecified
CPT/HCPCS: 85025

== ENCOUNTER 2019-10-05 08:04 | Emergency (ER) | payer MEDICARE, MEDICAID, SELFPAY ==
[2019-10-05] VITALS (25 sets, daily range): BP systolic 131–155; BP diastolic 59–74; PULSE 51–60; RESP 16–35; TEMP 36.8; O2SAT 92–100
--- NOTE | 2019-10-05 08:13 | W.ED.GENAD ---
Discharge Plan Disposition Patient Disposition: SNF (LEVEL 1) [facility] Condition: Stable Discharge Details Chief Complaint: GenMedical Clinical Impression: Hypertension Primary Care Provider: Lou Maldonado ED Provider: Irena Gonzalez Home Meds and New Rx's Prescriptions: Continued cyanocobalamin (vitamin B-12) 1,000 mcg Tablet 1,000 mcg PO DAILY RF: 0 ferrous sulfate 325 mg (65 mg iron) Tablet 325 mg PO BID Qty: 0 RF: 0 ascorbic acid (vitamin C) [Vitamin C] 250 mg Tablet 250 mg PO BID RF: 0 Centrum Complete 18-400 mg-mcg Tablet 1 tab PO DAILY RF: 0 pantoprazole 40 mg Tablet,Delayed Release (Dr/Ec) 40 mg PO DAILY Qty: 60 RF: 0 melatonin 3 mg Tablet Extended Release 6 mg PO HS Qty: 30 RF: 0 calcium carbonate-vitamin D3 [Calcium 500 + D] 500 mg(1,250mg) -400 unit Tablet 1 tab PO BID RF: 0 acetaminophen [Tylenol] 325 mg tablet 650 mg PO Q8H PRNRF: 0 gabapentin 100 mg capsule 300 mg PO TID RF: 0 risperidone [Risperdal] 2 mg tablet 1.5 mg PO HS RF: 0 vitamin B complex 100 2-herbs 100 mg Tablet 1 tab PO DAILY RF: 0 Combivent Respimat 20-100 mcg/actuation Mist 1 puff INHALATION Q6H PRNRF: 0 acidophilus-pectin, citrus 25 million cell -100 mg tablet 1 cap PO DAILY RF: 0 insulin lispro [Humalog KwikPen Insulin] 100 unit/mL Insulin Pen 0 unit SUBCUT AC RF: 0 sodium bicarbonate 650 mg Tablet 650 mg PO BID Qty: 90 RF: 0 potassium bicarb-citric acid 20 mEq tablet, effervescent 20 meq PO DAILY Qty: 30 RF: 0 erythromycin ethylsuccinate 200 mg/5 mL Suspension For Reconstitution 100 mg PO AC Qty: 27 RF: 0 oxycodone 5 mg Tablet 5 mg PO Q4H PRN PRNQty: 20 RF: 0 insulin regular human 100 unit/mL Solution 6 unit subcut AC RF: 0 lorazepam 1 mg tablet 1 mg PO Q8H PRNRF: 0 cyanocobalamin (vitamin B-12) [Vitamin B-12] 500 mcg Tablet 500 mcg PO DAILY RF: 0 prednisone 10 mg tablet 30 mg PO DAILY RF: 0 terazosin 2 mg Capsule 4 mg PO BID Qty: 0 RF: 0 magnesium chloride [Mag 64] 64 mg Tablet,Delayed Release (Dr/Ec) 64 mg PO BID Qty: 0 RF: 0 venlafaxine [Effexor XR] 37.5 mg Capsule,Extended Release 24hr 112.5 mg PO DAILY RF: 0 Zyrtec 10 mg Capsule 10 mg PO DAILY RF: 0 amlodipine 5 mg tablet 10 mg PO DAILY RF: 0 levothyroxine 25 mcg tablet 12.5 mcg PO HS RF: 0 Lantus Solostar U-100 Insulin 100 unit/mL (3 mL) insulin pen 50 unit subcut QAM RF: 0 metoprolol tartrate 25 mg Tablet 25 mg PO BID RF: 0 clonidine HCl [Catapres] 0.1 mg tablet 0.1 mg PO TID Qty: 0 RF: 0 Eliquis 5 mg Tablet 2.5 mg PO BID Qty: 60 RF: 0 CertaVite Senior-Antioxidant 0.4-300-250 mg-mcg-mcg Tablet 1 tab PO QAM RF: 0 Duoneb 3 ml inhalation PRN PRNRF: 0 Lantus Solostar U-100 Insulin 100 unit/mL (3 mL) insulin pen 6 unit SUBCUT HS RF: 0 furosemide [Lasix] 40 mg tablet 30 mg PO .Q 72 H RF: 0 doxycycline hyclate 100 mg capsule 100 mg PO DAILY@1000 RF: 0 Discharge Instructions Instructions: Hypertension (ED) Additional Instructions: Take medication as prescribed. Discuss adjusting your BP medication with staff at [facility]. Your labs are largely unchanged today. Referrals: Lou Maldonado [Primary Care Provider] - Discharge Data Discharge Date/Time-TO BE ENTERED AT DEPARTURE: 10/05/19 10:50 Medical Decision Making 59-year-old male with multiple comorbidities and chronic medical problems presents to the ER with chief complaint of high blood pressure. Patient is at the [facility] and staff reported elevated systolic blood pressure in the 250s at approximately 4 AM this morning. He did give him his normal blood pressure medications earlier than scheduled. He arrives here via EMS with blood pressure 155/74, he denies any headache, blurry vision or focal neuro deficits at this time. He is on 2 L oxygen nasal cannula, he does have bilateral foot splints on, he does have a Downing in place and a wound VAC to his decubitus ulcer. He has increased swelling noted to his right lower extremity, does have a dressing in place to his left lower extremity. He has a history of diabetes, congestive heart failure, obstructive sleep apnea, and multiple other past medical history. 0818: Page placed to Dr. Lou Lockhart. 0822: Spoke with Dr. Dottie Linares and discussed patient case she reports reiterates the story that the nurses called her couple times regarding patient's blood pressure. She was in the impression that he did receive his normal medications prior to arrival. Unsure if he received clonidine. At this time she has no recommendations for treatment or adjustment of his medications, she states that they will adjust his medications back at the facility, if there is no concerning signs or symptoms. At this time I do feel that it everything appears chronic his vital signs are stable. 0833: Patient had labs drawn on 09-30-19 which are in the system, white blood cell count is 12.71 hemoglobin 10.9, hematocrit 37.6, sodium 141, potassium 4.8, BUN is 43, creatinine is 1.73 GFR is 45 which is at his baseline. His repeat blood pressure is 148/72 at this time. 0841: Spoke with nurse practitioner Estefania from the [facility] she does request a CBC and BMP being drawn at this time, no other recommendations at this time, labs ordered. 0849: RT Alba at [facility] to eval patient's Bipap trilogy machine. Filter cleaned and orders updated for Trilogy Bipap by [facility]. 0929: Labs are pending, blood pressure is 136/59. Plan is to transport patient back to the [facility]. HPI General Mode of arrival: EMS. Date/Time Provider Initiated Documentation: 10/05/19 08:05. Limitations to Documentation: physical limitation. Information obtained by: patient, EMS and RN notes reviewed. HPI Narrative: 59-year-old male with multiple comorbidities and chronic medical problems presents to the ER with chief complaint of high blood pressure. Patient is at the [facility] and staff reported elevated systolic blood pressure in the 250s at approximately 4 AM this morning. He did give him his normal blood pressure medications earlier than scheduled. He arrives here via EMS with blood pressure 155/74, he denies any headache, blurry vision or focal neuro deficits at this time. He is on 2 L oxygen nasal cannula, he does have bilateral foot splints on, he does have a Downing in place and a wound VAC to his decubitus ulcer. He has increased swelling noted to his right lower extremity, does have a dressing in place to his left lower extremity. He has a history of diabetes, congestive heart failure, obstructive sleep apnea, and multiple other past medical history. Related Data Home Medications Medication Instructions Recorded Confirmed cyanocobalamin (vitamin B-12) 1,000 mcg PO DAILY 12/23/17 10/05/19 ferrous sulfate 325 mg PO BID #0 tab 12/31/17 10/05/19 magnesium chloride [Mag 64] 64 mg PO BID #0 tab 02/10/18 10/05/19 terazosin 4 mg PO BID #0 cap 02/10/18 10/05/19 Centrum Complete 1 tab PO DAILY 03/01/18 10/05/19 ascorbic acid (vitamin C) [Vitamin 250 mg PO BID 03/01/18 10/05/19 C] melatonin 6 mg PO HS #30 tab 06/19/18 10/05/19 pantoprazole 40 mg PO DAILY #60 tab 06/19/18 10/05/19 calcium carbonate-vitamin D3 1 tab PO BID 07/09/18 10/05/19 [Calcium 500 + D] venlafaxine [Effexor XR] 112.5 mg PO DAILY 10/23/18 10/05/19 acetaminophen [Tylenol] 650 mg PO Q8H PRN 01/08/19 10/05/19 gabapentin 300 mg PO TID 01/08/19 10/05/19 Zyrtec 10 mg PO DAILY 02/23/19 10/05/19 amlodipine 10 mg PO DAILY 02/26/19 10/05/19 levothyroxine 12.5 mcg PO HS 02/26/19 10/05/19 Lantus Solostar U-100 Insulin 50 unit SUBCUT QAM 03/15/19 10/05/19 metoprolol tartrate 25 mg PO BID 05/01/19 10/05/19 Eliquis 2.5 mg PO BID #60 tab 05/20/19 10/05/19 clonidine HCl [Catapres] 0.1 mg PO TID #0 tab 05/20/19 10/05/19 Combivent Respimat 1 puff INHALATION Q6H PRN 06/02/19 10/05/19 acidophilus-pectin, citrus 1 cap PO DAILY 06/02/19 10/05/19 insulin lispro [Humalog KwikPen 0 unit SUBCUT AC 06/02/19 09/11/19 Insulin] risperidone [Risperdal] 1.5 mg PO HS 06/02/19 10/05/19 vitamin B complex 100 2-herbs 1 tab PO DAILY 06/02/19 10/05/19 potassium bicarb-citric acid 20 meq PO DAILY #30 tab 06/04/19 10/05/19 sodium bicarbonate 650 mg PO BID #90 tab 06/04/19 10/05/19 CertaVite Senior-Antioxidant 1 tab PO QAM 06/07/19 10/05/19 Duoneb 3 ml INHALATION PRN PRN 06/07/19 09/22/19 erythromycin ethylsuccinate 100 mg PO AC #27 ml 09/06/19 10/05/19 oxycodone 5 mg PO Q4H PRN PRN #20 tab 09/06/19 10/05/19 Lantus Solostar U-100 Insulin 6 unit SUBCUT HS 09/22/19 10/05/19 furosemide [Lasix] 30 mg PO .Q 72 H 09/22/19 10/05/19 doxycycline hyclate 100 mg PO DAILY@1000 09/24/19 10/05/19 cyanocobalamin (vitamin B-12) 500 mcg PO DAILY 10/05/19 10/05/19 [Vitamin B-12] insulin regular human 6 unit SUBCUT AC 10/05/19 10/05/19 lorazepam 1 mg PO Q8H PRN 10/05/19 10/05/19 prednisone 30 mg PO DAILY 10/05/19 10/05/19 Previous Rx's Medication Instructions Recorded ferrous sulfate 325 mg PO BID #0 tab 12/31/17 magnesium chloride [Mag 64] 64 mg PO BID #0 tab 02/10/18 terazosin 4 mg PO BID #0 cap 02/10/18 melatonin 6 mg PO HS #30 tab 06/19/18 pantoprazole 40 mg PO DAILY #60 tab 06/19/18 Eliquis 2.5 mg PO BID #60 tab 05/20/19 clonidine HCl [Catapres] 0.1 mg PO TID #0 tab 05/20/19 potassium bicarb-citric acid 20 meq PO DAILY #30 tab 06/04/19 sodium bicarbonate 650 mg PO BID #90 tab 06/04/19 erythromycin ethylsuccinate 100 mg PO AC #27 ml 09/06/19 oxycodone 5 mg PO Q4H PRN PRN #20 tab 09/06/19 Allergies Allergy/AdvReac Type Severity Reaction Status Date / Time No Known Allergies Allergy Unverified 10/05/19 10:07 General Stated Complaint: GenMedical YVES: 3 Review of Systems Narrative: Constitutional: Alert and oriented, chronically ill, increased work of breathing. Multiple medical problems. HEENT: Denies trauma, headaches, blurry vision, nasal discharge, sore throat, trouble swallowing. Chest: Denies chest pain, palpitations, irregular rhythm, hypertension. Respiratory: Denies Shortness of breath, cough, hemoptysis. GI: Denies abdominal pain, nausea, vomiting, diarrhea, constipation.Has a colostomy. Musculoskeletal: Bilateral lower extremity swelling, erythema, this is chronic in nature, does have a decubitus ulcer with a wound VAC in place. : Denies dysuria, hematuria, flank pain, rectal bleeding. Has a Downing in place. Neuro: Denies dizziness, blurry vision, weakness, syncope, headache or facial numbness. Hematologic: Denies easy bruising, intolerance to heat or cold, hair loss. All systems reviewed & are unremarkable except as noted in HPI and below PFSH Medical History Acromegaly (Chronic) Acute on chronic kidney failure (Resolved) Adrenal insufficiency (Chronic) Ambulatory dysfunction (Chronic) Anemia (Chronic Unknown) Atrial flutter, paroxysmal (Chronic) Back pain (Chronic 06/21/13) CAD (coronary artery disease) (Chronic) Cardiopulmonary arrest with successful resuscitation (Resolved) Chronic anxiety (Chronic) Chronic bipolar disorder (Chronic) a. With history of psychosis. Chronic cholecystitis (Chronic) Chronic insomnia (Chronic) Chronic iron deficiency anemia (Acute) Chronic pain (Chronic) On both Methadone and Fentanyl as well as Ultram and Naproxen. CKD (chronic kidney disease) (Chronic) Decubitus ulcer of sacral region, stage 4 (Chronic) Decubitus ulcer, stage 4 with infection (Resolved) Diabetes mellitus (Chronic) Diabetic gastroparesis (Chronic) Diabetic ulcer of left foot associated with diabetes mellitus due to underlying condition (Chronic) Diabetic ulcer of toe associated with diabetes mellitus due to underlying condition, with bone involvement without evidence of necrosis (Inactive) 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 (Resolved) DVT (deep venous thrombosis) (Chronic) Dg April 2019. Has IVC filter placed 04/2019 Dyslipidemia (Chronic) Endocarditis due to Staphylococcus (Resolved) Heart failure with preserved ejection fraction (Chronic) Hemorrhagic cystitis (Chronic) Hep C w/o coma, chronic (Chronic) History of DVT (deep vein thrombosis) (Chronic) Hyperkalemia (Resolved) Hypomagnesemia (Resolved) Hypothyroidism (Chronic) Hypoventilation associated with obesity syndrome (Chronic) Ileostomy in place (Acute) Impaired mobility and ADLs (Chronic) Inability to get out of bed (Chronic 06/21/13) Lactic acidosis (Resolved) MRSA bacteremia (Acute) Obesity (Chronic) a. Obesity though he has had significant weight loss since last seen. Obstructive sleep apnea (Chronic) Old non-ST elevation myocardial infarction (NSTEMI) (Acute) March 2019 Open wound of left lower extremity without complication (Acute) secondary to trauma and from anticoagulation 04/2019 Osteoarthritis of both knees (Chronic) Severe. a. [id number] bilateral knees. 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 2 diabetes mellitus (Resolved) Palliative care encounter (Chronic) DObbertin PEA (Pulseless electrical activity) (Acute) episode of bradycardic arrest/PEA. thought to be secondary to gram neg sepsis from acute sonny. 03/2019 Pedal edema (Chronic) Persistent vomiting in adult patient (Acute) Poor self care (Chronic 06/21/13) Poorly controlled type 2 diabetes mellitus with circulatory disorder (Chronic) Presence of IVC filter (Acute) Protein-calorie malnutrition, mild (Chronic) Pulmonary hypertension (Chronic) Rheumatoid arthritis (Chronic) Sepsis (Resolved) Septic arthritis of elbow, right (Inactive) Toxic metabolic encephalopathy (Resolved) Ulcer of left lower leg (Chronic) this is healed and resolved. no longer requires dressing Ulcerative colitis (Chronic) UTI (urinary tract infection) (Resolved) UTI (urinary tract infection) due to Enterococcus (Resolved) Surgical History Arthroplasty of knee (Resolved 03/18/12) irrigation and lavage right Fracture, Open Treatment (Resolved) 06/06/17-[facility] S/P ORIF RIGHT DISTAL HUMERUS FRACTURE History of insertion of T-tube into biliary tract (Chronic) S/P colectomy (Chronic) S/P proctocolectomy (Acute) Social History Smoking/Tobacco Use Status: Former Tobacco Use Alcohol Intake: former Drug use: Rarely Substance use type: marijuana Housing: intermediate Do you feel safe at home: Yes Do you feel safe in your relationship?: Yes Additional Social history: Living at [facility] in [place] Exam Narrative Exam Narrative: Constitutional: Alert and oriented x3. Appears older than stated age. Obese body habitus. Head: Normocephalic, no trauma. Eyes: Pupils PERRLA, Red reflex noted, EOM's intact. Eyelids symmetrical without lesions, discharge, or swelling. ENT: Bilateral TM's WNL, External ear normal to inspection, no mastoid TTP, swelling, or erythema, Nasal turbinates WNL, no nasal discharge. Normal dentition, Posterior pharynx WNL, no exudate. Chest: Normal sinus rhythm, normal S1, S2, distal upper extremity pulses intact. Resp: Lungs clear to auscultation bilaterally, no wheezes, rales, or rhonchi. Does have mild increased work of breathing, satting 99% on 2 L nasal cannula. Musculoskeletal: Has 3+ pitting lower extremity edema and erythema is wearing bilateral foot splints. Left lower extremity does have a dressing noted to the lateral aspect of the negro. Skin: Does have some chronic appearing or old ecchymosis noted to his right upper extremity, erythema noted to his right lower extremity swelling. Does have a wound VAC noted to his decubitus. Neurologic: Cranial nerves II-XII intact. Alert and oriented x 3. DTR's intact. Hematologic/Lymphatic: No ecchymosis, no lymphadenopathy. Course Vital Signs Vital signs: Vital Signs Temperature 36.8 C 10/05/19 07:52 Pulse 51 L 10/05/19 07:52 Respiratory Rate 16 10/05/19 07:52 Blood Pressure 155/74 H 10/05/19 07:52 Pulse Oximetry 98 10/05/19 07:52 Temperature 36.8 C 10/05/19 07:52 Temperature Source Skin 10/05/19 07:52 Pulse 51 L 10/05/19 07:52 Respiratory Rate 27 H 10/05/19 08:00 Respiratory Effort Incrsd Work of Breathing 10/05/19 08:00 Respiratory Depth Normal 10/05/19 08:00 Respiratory Pattern Tachypnea 10/05/19 08:00 Blood Pressure 155/74 H 10/05/19 07:52 Blood Pressure Position Supine 10/05/19 07:52 Pulse Oximetry 98 10/05/19 07:52 Oxygen Delivery Method Room Air 10/05/19 07:52 Oxygen Flow Rate 0 10/05/19 07:52 Pain Level 2 10/05/19 07:52
[2019-10-05 09:34] LABS: HGB 11.4 g/dL (13.5-17.5); MCH 24.1 pg (27.0-33.0); MPV 9.4 fL (8.0-11.0); Nucleated RBC 0 %; Platelet Count 223 10^3/uL (130-400); RBC 4.74 10^6/uL (4.36-5.78); RDW 16.7 % (11.8-14.1); RDW-SD 48.9 fL; WBC 12.51 10^3/uL (4.4-10.8)
[2019-10-05 09:36] LABS: Anion Gap 3.5 mmol/L (3-11); BUN 42 mg/dL (7-18); CO2 31.5 mmol/L (21.0-32.0); CREATININE 1.55 mg/dL (0.70-1.30); Calcium 8.8 mg/dL (8.5-10.1); Chloride 108 mmol/L (98-107); Estimated GFR 45.97 (mL/min/1.73m2); Glucose 204 mg/dL (74-106); Potassium 4.1 mmol/L (3.5-5.1); Sodium 143 mmol/L (136-145)
[2019-10-05 09:59] LABS: Absolute Lymphocyte Count 0.25 10^3/uL (1.2-3.4); Absolute Monocyte Count 1.25 10^3/uL (0.1-0.8); Absolute Neutrophil Count 10.88 10^3/uL (1.2-6.7); Bands % 5; Metamyelocytes % 1
[2019-10-05 10:00] LABS: Basophilic Stippling 1+; Diff Comment Manual Differential; Polychromasia Present
[2019-10-05 10:01] LABS: MCV 80.2 fL (80-95); Poikilocytes 1+
== END 2019-10-05 10:50 | disposition skilled nursing facility (03) ==
PROVIDERS: Emergency Provider Registered Nurse Emergency; PCP Family Medicine
DX: I12.9 Hypertensive chronic kidney disease with stage 1 through stage 4 chronic kidney disease, or unspecified chronic kidney disease (principal); N18.9 Chronic kidney disease, unspecified; E11.22 Type 2 diabetes mellitus with diabetic chronic kidney disease; Z79.4 Long term (current) use of insulin
CPT/HCPCS: 36415; 36416; 80048; 99283; 85025

== ENCOUNTER 2019-10-08 15:15 | Outpatient (REF) | payer MEDICARE, MEDICAID, SELFPAY ==
[2019-10-08 16:09] LABS: Absolute Basophil Count 0.03 10^3/uL (0.0-0.2); Absolute Eosinophil Count 0.03 10^3/uL (0.0-0.7); Absolute Lymphocyte Count 0.31 10^3/uL (1.2-3.4); Absolute Monocyte Count 0.37 10^3/uL (0.1-0.8); Absolute Neutrophil Count 16.16 10^3/uL (1.2-6.7); Basophils % 0.2; Eosinophils % 0.2; HCT 35.8 % (40.0-50.0); HGB 10.6 g/dL (13.5-17.5); Immature Grans % 2.9; Lymphocytes % 1.8; MCH 24.5 pg (27.0-33.0); MCHC 29.6 % (32.0-36.0); MCV 82.7 fL (80-95); MPV 10.1 fL (8.0-11.0); Monocytes % 2.1; Neutrophils % 92.8; Nucleated RBC 0 %; Platelet Count 209 10^3/uL (130-400); RBC 4.33 10^6/uL (4.36-5.78); RDW 16.7 % (11.8-14.1); RDW-SD 50.3 fL; WBC 17.41 10^3/uL (4.4-10.8)
[2019-10-08 16:54] LABS: Anion Gap 6.7 mmol/L (3-11); BUN 38 mg/dL (7-18); CO2 29.3 mmol/L (21.0-32.0); Calcium 8.4 mg/dL (8.5-10.1); Chloride 105 mmol/L (98-107); Estimated GFR 44.31 (mL/min/1.73m2); Glucose 429 mg/dL (74-106); Potassium 4.3 mmol/L (3.5-5.1); Sodium 141 mmol/L (136-145)
[2019-10-13 05:31] LABS: COVID-19 RT-PCR Result Not Detected ((See Note))
== END 2019-10-08 15:35 ==
LOC: LBN 15:15
PROVIDERS: PCP Family Medicine; Visit Provider Family Medicine
DX: E11.40 Type 2 diabetes mellitus with diabetic neuropathy, unspecified (principal); N18.9 Chronic kidney disease, unspecified; L03.90 Cellulitis, unspecified; Z11.59 Encounter for screening for other viral diseases
CPT/HCPCS: 80048; U0003; 85025

== ENCOUNTER 2019-10-12 16:49 | Outpatient (REF) | payer MEDICARE, MEDICAID, SELFPAY ==
[2019-10-12 17:10] LABS: Abs Immature Grans 0.47 10^3/uL (0.0-0.06); Absolute Basophil Count 0.02 10^3/uL (0.0-0.2); Absolute Eosinophil Count 0.01 10^3/uL (0.0-0.7); Absolute Lymphocyte Count 0.37 10^3/uL (1.2-3.4); Absolute Monocyte Count 0.22 10^3/uL (0.1-0.8); Absolute Neutrophil Count 10.43 10^3/uL (1.2-6.7); Basophils % 0.2; Eosinophils % 0.1; HCT 33.8 % (40.0-50.0); HGB 10.3 g/dL (13.5-17.5); Immature Grans % 4.1; Lymphocytes % 3.2; MCH 24.9 pg (27.0-33.0); MCHC 30.5 % (32.0-36.0); MCV 81.6 fL (80-95); MPV 10.8 fL (8.0-11.0); Monocytes % 1.9; Neutrophils % 90.5; Nucleated RBC 0 %; Platelet Count 194 10^3/uL (130-400); RBC 4.14 10^6/uL (4.36-5.78); RDW 16.5 % (11.8-14.1); RDW-SD 48.7 fL; WBC 11.52 10^3/uL (4.4-10.8)
[2019-10-12 17:17] LABS: Anion Gap 6.5 mmol/L (3-11); BUN 39 mg/dL (7-18); CO2 29.5 mmol/L (21.0-32.0); CREATININE 1.75 mg/dL (0.70-1.30); Calcium 8.7 mg/dL (8.5-10.1); Chloride 106 mmol/L (98-107); Estimated GFR 39.96 (mL/min/1.73m2); Glucose 449 mg/dL (74-106); Potassium 4.7 mmol/L (3.5-5.1); Sodium 142 mmol/L (136-145)
== END 2019-10-12 17:09 ==
LOC: NCHCN 16:49
PROVIDERS: PCP Family Medicine; Visit Provider Family Medicine
DX: E87.8 Other disorders of electrolyte and fluid balance, not elsewhere classified (principal); L03.90 Cellulitis, unspecified; L02.91 Cutaneous abscess, unspecified; R68.89 Other general symptoms and signs; N18.4 Chronic kidney disease, stage 4 (severe); D63.1 Anemia in chronic kidney disease
CPT/HCPCS: 80048; 85025

== ENCOUNTER → 2019-10-15 09:20 | Outpatient (BNVA) | payer MEDICARE, MEDICAID, SELFPAY | PROVIDERS: PCP Family Medicine; Referring Provider Family Medicine; Visit Provider Surgery | DX: S80.12XA Contusion of left lower leg, initial encounter (principal); X58.XXXA Exposure to other specified factors, initial encounter; L97.521 Non-pressure chronic ulcer of other part of left foot limited to breakdown of skin; E08.621 Diabetes mellitus due to underlying condition with foot ulcer; N18.4 Chronic kidney disease, stage 4 (severe); D63.1 Anemia in chronic kidney disease; Z74.09 Other reduced mobility; L89.154 Pressure ulcer of sacral region, stage 4; I50.32 Chronic diastolic (congestive) heart failure; K31.84 Gastroparesis; R00.1 Bradycardia, unspecified; L97.921 Non-pressure chronic ulcer of unspecified part of left lower leg limited to breakdown of skin; M06.9 Rheumatoid arthritis, unspecified; Z79.52 Long term (current) use of systemic steroids; Z92.29 Personal history of other drug therapy | CPT/HCPCS: 11044; 99213 ==

== ENCOUNTER 2019-10-25 15:56 | Outpatient (REF) | payer MEDICARE, MEDICAID, SELFPAY ==
[2019-10-25 15:10] LABS: Abs Immature Grans 0.13 10^3/uL (0.0-0.06); Absolute Basophil Count 0.02 10^3/uL (0.0-0.2); Absolute Eosinophil Count 0.13 10^3/uL (0.0-0.7); Absolute Lymphocyte Count 0.44 10^3/uL (1.2-3.4); Basophils % 0.2; Eosinophils % 1.4; HCT 35.3 % (40.0-50.0); HGB 10.3 g/dL (13.5-17.5); Immature Grans % 1.4; Lymphocytes % 4.6; MCHC 29.2 % (32.0-36.0); MCV 85.7 fL (80-95); MPV 10.7 fL (8.0-11.0); Monocytes % 4.2; Neutrophils % 88.2; Nucleated RBC 0 %; Platelet Count 203 10^3/uL (130-400); RBC 4.12 10^6/uL (4.36-5.78); RDW 16.7 % (11.8-14.1); RDW-SD 51.7 fL; WBC 9.62 10^3/uL (4.4-10.8)
[2019-10-25 15:18] LABS: Anion Gap 0.4 mmol/L (3-11); BUN 45 mg/dL (7-18); CO2 35.6 mmol/L (21.0-32.0); CREATININE 1.87 mg/dL (0.70-1.30); Calcium 8.8 mg/dL (8.5-10.1); Chloride 111 mmol/L (98-107); Estimated GFR 37.01 (mL/min/1.73m2); Glucose 202 mg/dL (74-106); Potassium 4.4 mmol/L (3.5-5.1); Sodium 147 mmol/L (136-145)
== END 2019-10-25 16:16 ==
LOC: LBN 15:56
PROVIDERS: PCP Family Medicine; Visit Provider Family Medicine
DX: L98.9 Disorder of the skin and subcutaneous tissue, unspecified (principal); Z79.899 Other long term (current) drug therapy; I50.9 Heart failure, unspecified; L03.90 Cellulitis, unspecified
CPT/HCPCS: 80048; 85025

== ENCOUNTER 2019-10-27 11:39 | Outpatient (REF) | payer MEDICARE, MEDICAID, SELFPAY ==
[2019-10-27 12:27] LABS: Anion Gap 1.9 mmol/L (3-11); BUN 43 mg/dL (7-18); CO2 37.1 mmol/L (21.0-32.0); CREATININE 1.67 mg/dL (0.70-1.30); Calcium 8.9 mg/dL (8.5-10.1); Chloride 112 mmol/L (98-107); Estimated GFR 42.18 (mL/min/1.73m2); Glucose 211 mg/dL (74-106); Potassium 3.7 mmol/L (3.5-5.1); Sodium 151 mmol/L (136-145)
[2019-10-27 12:46] LABS: Abs Immature Grans 0.09 10^3/uL (0.0-0.06); Absolute Basophil Count 0.02 10^3/uL (0.0-0.2); Absolute Eosinophil Count 0.13 10^3/uL (0.0-0.7); Absolute Lymphocyte Count 0.56 10^3/uL (1.2-3.4); Absolute Neutrophil Count 5.88 10^3/uL (1.2-6.7); Basophils % 0.3; Eosinophils % 1.8; HCT 32.6 % (40.0-50.0); HGB 9.6 g/dL (13.5-17.5); Immature Grans % 1.3; Lymphocytes % 7.8; MCH 24.8 pg (27.0-33.0); MCHC 29.4 % (32.0-36.0); MCV 84.2 fL (80-95); Neutrophils % 81.8; Nucleated RBC 0 %; Platelet Count 183 10^3/uL (130-400); RBC 3.87 10^6/uL (4.36-5.78); RDW 16.7 % (11.8-14.1); RDW-SD 51.3 fL; WBC 7.18 10^3/uL (4.4-10.8)
== END 2019-10-27 11:59 ==
LOC: LBN 11:39
PROVIDERS: PCP Family Medicine; Visit Provider Family Medicine
DX: R53.83 Other fatigue (principal); R68.89 Other general symptoms and signs; L02.91 Cutaneous abscess, unspecified; L03.90 Cellulitis, unspecified
CPT/HCPCS: 80048; 85025

== ENCOUNTER 2019-10-28 16:07 | Outpatient (REF) | payer MEDICARE, MEDICAID, SELFPAY ==
[2019-10-28 17:53] LABS: Abs Immature Grans 0.14 10^3/uL (0.0-0.06); Absolute Basophil Count 0.03 10^3/uL (0.0-0.2); Absolute Eosinophil Count 0.08 10^3/uL (0.0-0.7); Absolute Monocyte Count 0.54 10^3/uL (0.1-0.8); Absolute Neutrophil Count 8.55 10^3/uL (1.2-6.7); Basophils % 0.3; Eosinophils % 0.8; HCT 32.9 % (40.0-50.0); HGB 9.8 g/dL (13.5-17.5); Immature Grans % 1.4; Lymphocytes % 4.1; MCH 25.1 pg (27.0-33.0); MCHC 29.8 % (32.0-36.0); MCV 84.4 fL (80-95); MPV 11.3 fL (8.0-11.0); Monocytes % 5.5; Neutrophils % 87.9; Nucleated RBC 0 %; Platelet Count 207 10^3/uL (130-400); RDW 16.5 % (11.8-14.1); RDW-SD 50.4 fL; WBC 9.74 10^3/uL (4.4-10.8)
[2019-10-28 18:27] LABS: Anion Gap 1.9 mmol/L (3-11); BUN 44 mg/dL (7-18); CO2 36.1 mmol/L (21.0-32.0); CREATININE 1.96 mg/dL (0.70-1.30); Calcium 8.8 mg/dL (8.5-10.1); Chloride 106 mmol/L (98-107); Estimated GFR 35.06 (mL/min/1.73m2); Glucose 483 mg/dL (74-106); Potassium 4.1 mmol/L (3.5-5.1); Sodium 144 mmol/L (136-145)
== END 2019-10-28 16:27 ==
LOC: NCHCN 16:07
PROVIDERS: PCP Family Medicine; Visit Provider Family Medicine
DX: L02.416 Cutaneous abscess of left lower limb (principal); L03.90 Cellulitis, unspecified; E87.8 Other disorders of electrolyte and fluid balance, not elsewhere classified
CPT/HCPCS: 80048; 85025

== ENCOUNTER 2019-11-04 13:36 | Outpatient (REF) | payer MEDICARE, MEDICAID, SELFPAY ==
[2019-11-04 14:02] LABS: Anion Gap 1.2 mmol/L (3-11); BUN 33 mg/dL (7-18); CO2 35.8 mmol/L (21.0-32.0); CREATININE 1.97 mg/dL (0.70-1.30); Calcium 8.9 mg/dL (8.5-10.1); Chloride 105 mmol/L (98-107); Estimated GFR 34.85 (mL/min/1.73m2); Glucose 378 mg/dL (74-106); Potassium 5.6 mmol/L (3.5-5.1); Sodium 142 mmol/L (136-145)
== END 2019-11-04 13:56 ==
LOC: LBN 13:36
PROVIDERS: PCP Family Medicine; Visit Provider Family Medicine
DX: E11.40 Type 2 diabetes mellitus with diabetic neuropathy, unspecified (principal); I50.9 Heart failure, unspecified; N18.9 Chronic kidney disease, unspecified; R60.9 Edema, unspecified
CPT/HCPCS: 80048